=== PATIENT | female | born 1940 | race Caucasian/White ===

== ENCOUNTER 2023-02-14 18:08 | Emergency (ER) | payer MEDICARE, SELFPAY ==
[2023-02-14 18:36] VITALS: BP 127/87; PULSE 86; RESP 16; TEMP 36.6; O2SAT 98; BMI 33.0
--- NOTE | 2023-02-14 18:41 | XR_ITS ---
The [address] [address] Patient Name: MIGUEL A APARICIO MRN: [id number] date: 1940 Sex: F Assigned Patient Location: ER Current Patient Location: ER Accession/Order Number: [id number] Exam Date: 02/14/2023 18:48 Report Date: 02/14/2023 19:30 At the request of: LUKE BRIDGES Procedure: XR ribs LT min 3V w CXR1V EXAMINATION: XR ribs LT min 3V w CXR1V HISTORY: injury ; acute left rib pain after falling COMPARISON: No relevant comparison available. FINDINGS: LUNGS: Chronic interstitial changes within lung bases; no convincing infiltrates. PLEURA: No pneumothorax, effusion, or pleural thickening. MEDIASTINUM: No visible mass or adenopathy. CARDIAC: No cardiomegaly or cardiac silhouette abnormality. RIBS: No appreciable rib fracture. Degenerative changes of the glenohumeral joints bilaterally. OTHER: Negative. XR/XR ribs LT min 3V w CXR1V IMPRESSION: 1. No acute cardiopulmonary process. 2. No appreciable rib fracture. Electronically authenticated by: RYNE CARLTON Date: 02/14/2023 19:30
--- NOTE | 2023-02-14 20:20 | ED_ITS ---
Documented by User: Yanira Barnes 02/14/23 20:22 HPI - General Adult General Chief complaint: Fall Stated complaint: FALL RIB PAIN Time Seen by Provider: 02/14/23 20:10 Source: patient Mode of arrival: walk-in Limitations: no limitations History of Present Illness HPI narrative: 82-year-old female presents with chief complaint of left-sided chest wall pain. Patient tripped and twisted falling on her arm and left side earlier today. She is here for fear of a possible rib fracture. She states she has difficulty taking in a deep breath. She denies striking her head. No crepitus or bruising over the left lower chest wall. She does have pain to palpation to the area. She states it occurred earlier today. She's had increased pain throughout the day. Denies any head or neck pain Related Data Allergies Allergy/AdvReac Type Severity Reaction Status Date / Time cefpodoxime [From Vantin] Allergy Verified 02/14/23 18:35 Review of Systems ROS Narrative All Systems are negative except as noted/marked.All systems reviewed and otherwise negative [facility] Social History Smoking status: Never smoker Exam Narrative Exam Narrative: Nurses note and vital signs reviewed and patient is not hypoxic. General: The patient appears well and in no apparent distress. Patient is resting comfortably on cart. Skin: Warm, dry, no pallor noted. There is no rash noted. Head: Normocephalic, atraumatic Eye: Normal conjunctiva, no drainage, EOMI. PERRL Ears, Nose, Mouth, and Throat: oral mucosa is moist. Nares patent. Mouth without vesicles. Ear canals patent. Tm's without Erythema Musculoskeletal: Left-sided chest wall pain. Crepitus no bruising, The patient has no evidence of calf tenderness, no pitting edema, symmetrical pulses noted bilaterally Neurological: A&O x4, normal speech Psychiatric: Cooperative Constitutional Vital Signs, click to edit/add: Last Vital Signs Temp 97.9 F 02/14/23 18:36 Pulse 86 02/14/23 18:36 Resp 16 02/14/23 18:36 BP 127/87 02/14/23 18:36 Pulse Ox 98 02/14/23 18:36 O2 Del Method Room Air 02/14/23 18:36 Course Vital Signs Vital signs: Vital Signs Temperature 97.9 F 02/14/23 18:36 Pulse Rate 86 02/14/23 18:36 Respiratory Rate 16 02/14/23 18:36 Blood Pressure 127/87 02/14/23 18:36 Pulse Oximetry 98 02/14/23 18:36 Oxygen Delivery Method Room Air 02/14/23 18:36 Temperature 97.9 F 02/14/23 18:36 Pulse Rate 86 02/14/23 18:36 Respiratory Rate 16 02/14/23 18:36 Blood Pressure 127/87 02/14/23 18:36 Pulse Oximetry 98 02/14/23 18:36 Oxygen Delivery Method Room Air 02/14/23 18:36 Medical Decision Making MDM Narrative Medical decision making narrative: She presented here with a injury from a fall left side. X-ray shows no acute deformities. Patient denied the need for pain medicine she was given a muscle relaxant. She'll be discharged home with prescription muscle relaxant follow-up primary care physician. Medical Records Medical records reviewed: Yes I reviewed the patient's medical records Discharge Plan Discharge Chief Complaint: Fall Clinical Impression: Rib pain on left side Patient Disposition: Home, Self-Care Time of Disposition Decision: 20:17 Condition: Good Instructions: Rib Contusion (ED) Stand Alone Forms: Portal Instructions Referrals: AYANNA VICENTE [Primary Care Provider] - 1 week Documented by User: Stanford Gill MD 02/14/23 20:28 HPI - General Adult General Chief complaint: Fall Stated complaint: FALL RIB PAIN Time Seen by Provider: 02/14/23 20:10 Related Data Allergies Allergy/AdvReac Type Severity Reaction Status Date / Time cefpodoxime [From Vantin] Allergy Verified 02/14/23 18:35 PFSH PFSH Social History Smoking status: Never smoker Exam Constitutional Vital Signs, click to edit/add: Last Vital Signs Temp 97.9 F 02/14/23 18:36 Pulse 86 02/14/23 18:36 Resp 16 02/14/23 18:36 BP 127/87 02/14/23 18:36 Pulse Ox 98 02/14/23 18:36 O2 Del Method Room Air 02/14/23 18:36 Course Vital Signs Vital signs: Vital Signs Temperature 97.9 F 02/14/23 18:36 Pulse Rate 86 02/14/23 18:36 Respiratory Rate 16 02/14/23 18:36 Blood Pressure 127/87 02/14/23 18:36 Pulse Oximetry 98 02/14/23 18:36 Oxygen Delivery Method Room Air 02/14/23 18:36 Temperature 97.9 F 02/14/23 18:36 Pulse Rate 86 02/14/23 18:36 Respiratory Rate 16 02/14/23 18:36 Blood Pressure 127/87 02/14/23 18:36 Pulse Oximetry 98 02/14/23 18:36 Oxygen Delivery Method Room Air 02/14/23 18:36 Medical Decision Making MDM Narrative Medical decision making narrative: She presented here with a injury from a fall left side. X-ray shows no acute deformities. Patient denied the need for pain medicine she was given a muscle relaxant. She'll be discharged home with prescription muscle relaxant follow-up primary care physician. Patient was seen and evaluated by Yanira Barnes and Dr. Gandhi. Dr. Gill did not see or evaluate this patient. Discharge Plan Discharge Chief Complaint: Fall Clinical Impression: Rib pain on left side Patient Disposition: Home, Self-Care Time of Disposition Decision: 20:17 Condition: Good Instructions: Rib Contusion (ED) Stand Alone Forms: Portal Instructions Referrals: AYANNA VICENTE [Primary Care Provider] - 1 week
[2023-02-14] MEDS: METHOCARBAMOL 500 MG TABLET PO (20:37)
[2023-02-14 20:39] VITALS: BP 111/68; PULSE 81; RESP 12; TEMP 36.9; O2SAT 95
== END 2023-02-14 20:41 | disposition home or self-care (01) ==
PROVIDERS: Emergency Provider Emergency Medicine; PCP Family Medicine
DX: R07.81 Pleurodynia (principal); Z91.81 History of falling
CPT/HCPCS: 71101; 99283

== ENCOUNTER 2023-08-25 12:32 | Outpatient (OUT) | payer MEDICARE, SELFPAY ==
--- NOTE | 2023-08-25 14:35 | PM.CN ---
Consult Note: HPI Data of Consult Patient: new to practice Consult date: 08/25/23 Requesting Physician: Som Azul MD Primary Care Provider: AYANNA VICENTE Consult Narrative Reason for consult: low back, right hip, right leg pain Narrative: 83yof who presents for evaluation. worsening low back, right leg pain. xr show multilevel degeneration. fused from l4-l5. has continued in provider directed home exercise program >6 weeks, with minimal benefit. uses robaxin, otc pain meds. denies adverse med side effects. cc:: CC: Som Azul MD Review of Systems ROS Status of ROS 10 or more systems reviewed and unremarkable except as noted in history and below PFSH PFSH Social History Smoking status: Never smoker Meds Home Medications and Allergies Home Medications Medication Instructions Recorded Confirmed Type methocarbamol 500 mg tablet 500 mg PO TID pain 02/14/23 02/14/23 History Allergies Allergy/AdvReac Type Severity Reaction Status Date / Time cefpodoxime [From Vantin] Allergy Verified 02/14/23 18:35 Exam Narrative Exam Narrative: Psych-alert and oriented x 3. Attentive and appropriate, constitutionally normal, displays normal mood and affect per situation. There are no obvious deficits in memory, reasoning, or intellect.? Skin-no obvious rashes, bruising, erythema noted to the patient's area of pain.? Extremities- extremities are warm with minimal edema and palpable pulses. Lumbar-tenderness to palpation noted in the lumbar spine and paraspinal musculature. Pain is elicited with flexion, extension, and lateral rotation of the lumbar spine. Range of motion is diminished with these motions. Facet loading maneuvers are positive. Strength-noted to be unremarkable with the exception of decreased strength rated at 4 out of 5 in right quadriceps femoris, anterior tibialis. Sensory-no notable sensory deficits in the bilateral lower extremities to touch or pinprick in all dermatomal distributions with the exception to decreased sensation to the right L4, 5 dermatomal distribution Sacroiliac - tender to palpation over right PSIS. Positive Buster's on right side. Positive thigh thrust on right side. Coordination remains intact.? Gait remains non-antalgic. 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 failed conservatve measures, as noted. imaging reviewed, as noted. given symptoms and exam, prudent to attempt right sij injection under fluoroscopic guidance. she is in agreement. given radiating component down right leg, prudent to obtain lumbar mri without contrast. she is in agreement. also discussed possibility of bilateral genicular nerve blocks in future. meds reviewed, no changes. follow up after procedure and imaging.
== END 2023-08-25 12:33 | disposition home or self-care (01) ==
LOC: PM 12:32
PROVIDERS: PCP Family Medicine; Visit Provider Anesthesiology
DX: M48.062 Spinal stenosis, lumbar region with neurogenic claudication (principal); M96.1 Postlaminectomy syndrome, not elsewhere classified; M53.3 Sacrococcygeal disorders, not elsewhere classified
CPT/HCPCS: G0463

== ENCOUNTER 2023-08-26 10:07 | Outpatient (RCR) | payer MEDICARE, SELFPAY | END 2023-10-04 15:31 | disposition home or self-care (01) | LOC: PT 10:07 | PROVIDERS: PCP Family Medicine; Visit Provider Nurse Practitioner Family | DX: M54.50 Low back pain, unspecified (principal); M25.551 Pain in right hip | CPT/HCPCS: 20561; 97035; 97110; 97113; 97140; 97161 ==

== ENCOUNTER 2023-09-01 08:46 | Day surgery (SDC) | payer MEDICARE, SELFPAY ==
--- OUTSIDE RECORDS SUMMARY | 2023-09-01 09:00 | XMS_ITS | CCD ---
Author Name Unknown Address [address] [place] [address] Organization [facility] Care Team Providers [employer] Material Name Role Phone Ayanna Vicente Primary Care Provider Ayanna Vicente Unavailable Ayanna Vicente Unavailable Ayanna Vicente Unavailable Ayanna Milner Unavailable DO Ayanna Vicente Primary Care Provider MD James Redding Emergency Provider MD Bertram Garrison Admit Provider MD Bertram Garrison Attending Provider [phone] MD Galo Max Admit Provider MD Galo Max Attending Provider ALLYSSA Penn Other Provider Unavailable ALLYSSA Orourke Other Provider Unavailable ALLYSSA Camejo Other Provider Unavailable ALLYSSA Das Other Provider Unavailable ALLYSSA Acosta Other Provider Unavailable ALLYSSA Wall Other Provider Unavailable MD Yuliana Hale Other Provider MD Herman Kevin Other Provider NATALI Powell Other Provider DO Madeline Juarez Other Provider MD Marcio Hernandez Other Provider DO Loco Velasquez Other Provider MD Elgin Irby Other Provider MD Adali Salamanca Other Provider Beulah, ANP-BC Valarie Other Provider MD Max Paulino Other Provider [phone] MD Faisal Abel Other Provider MD Bertram Garrison Other Provider MD Bobby Guevara Other Provider MD Pietro Chaparro Other Provider MD Bin Rock Other Provider MD Michael Burnett Other Provider BERTA Najera-Aquiles Mane Other Provider [phone] MD Salas Winslow Other Provider MD Joss Stoner Other Provider MD Terrie Hua Other Provider MD Chase Glover Other Provider DO Meron Estrada Other Provider Al MD Hasmukh Beck Other Provider DO Felipe Howard Other Provider NATALI Montanez Other Provider DO Santiago Fontaine Other Provider MD Tyson De Los Santos Other Provider Claudia, RN Kathy Other Provider Unavailable MD Pietro Corral Other Provider MD Penny Mike Other Provider PABLO Quarles Other Provider DO Gume Macedo Other Provider MD Bertrand Akins II Other Provider DO Ayanna Vicente Attending Provider Ayanna Vicente DO Primary Care Provider Ayanna Vicente DO Unavailable Ayanna Vicente DO Unavailable [phone] DO Ayanna Vicente Primary Care Provider Ayanna Vicente DO Primary Care Provider Ayanna Vicente DO Unavailable Ayanna Vicente DO Unavailable DO Ayanna Vicente Primary Care Provider Sakina, DO Izaguirre Attending Provider [phone] MD Francine Lares Attending Provider Ayanna Vicente Primary Care Unavailable PABLO Sheth Attending Provider [phone] DO Ayanna Vicente Primary Care Provider DO Ayanna Vicente Attending Provider [phone] MD Francine Lares Attending Provider PABLO Sheth Attending Provider DR AYANNA VICENTE Primary Care Unavailable VERNONMIPATHJoslyn ., NARENDRANATH Attending Abigail vailable MARLEN ., NARENDRANATH Admitting Abigail vailable Ayanna Vicente Primary Care Physician SUSAN RANDOLPH Attending Unavailable SUSAN RANDOLPH Attending Unavailable DO Ayanna Vicente Primary Care Provider DO Ayanna Vicente Attending Provider [phone] Francine Lares Admitting Unavailable Ayanna Vicente Primary Care Unavailable Francine Lares Attending Unavailable Sharda Sheth Attending Unavailable Sakina, Ayanna Primary Care Unavailable Sharda Sheth Admitting Unavailable Sakina, Ayanna Primary Care Unavailable Ayanna Vicente Attending Unavailable Sakina, Ayanna Admitting Unavailable Sakina, Ayanna Primary Care Unavailable Sakina, Ayanna Attending Unavailable Sakina, Ayanna Admitting Unavailable Sakina, Ayanna Primary Care Unavailable Ayanna Vicente Attending Unavailable Sakina, Ayanna Admitting Unavailable Sakina, Ayanna Primary Care Unavailable Ayanna Vicente Attending Unavailable Sakina, Ayanna Admitting Unavailable Sakina, Ayanna Primary Care Unavailable Francine Lares Admitting Unavailable Ratnau, Francine Attending Unavailable Sharda Sheth Attending Unavailable Ayanna Vicente Primary Care Unavailable Sharda Sheth Admitting Unavailable Junior Butterfield Unavailable RATNAU, FRANCINE Referring Unavailable OMER, FRANCINE Attending Unavailable AYANNA VICENTE Primary Care Unavailable JANETLOU, FRANCINE Referring Unavailable AYANNA VICENTE Primary Care Unavailable JEFELEAH, FRANCINE Referring Unavailable OMER, FRANCINE Attending Unavailable AYANNA VICENTE Primary Care Unavailable OMER, FRANCINE Referring Unavailable AYANNA VICENTE Primary Care Unavailable Homa Mckeon Unavailable Ayanna Vicente MD Primary Care Provider [phone] JAMES SMITH Attending Unavailable Latha ROMEO, Som Bryson Attending Unavailable Allergies Allergy Classification Reported Allergen(s) Allergy Type Date of Onset Reaction(s) Facility Cephalosporins (antibiotic) (1 source) Cephalosporins (Antibiotic) Drug Allergy 02-20-20 04 Hives, Swelling [facility] (20 sources) cefpodoxime; Translations: [Vantin] Drug Allergy 12-24-19 16 Eye swelling (finding) [facility] (20 sources) cepahlosporins Propensity to adverse reactions Unknown [facility] Other (20 sources) Cephalosporins (Antibiotic); Translations: [Cephalosporins] Allergy to substance 02-20-20 04 Hives, Swelling, Swelling (morphologic abnormality), Eye swelling (finding), Unknown [facility] (9 sources) cefpodoxime; Translations: [CEFPODOXIME] Drug Allergy 02-17-20 19 Unknown, Other [facility] (1 source) Amoxicillin Drug Allergy 12-24-19 16 [facility] (15 sources) Medicinal cephalosporin and acting as antibacterial agent (FN) Drug allergy Unknown [facility] Other (2 sources) Bacitracin / Neomycin / Polymyxin B Drug Allergy Unknown [facility] Other Medications Current Medications Medication Drug Class(es) Dates Sig (Normalized) Sig (Original) acetaminophen 325 mg / oxyCODONE hydrochloride 5 mg oral tablet (20 sources) Opioid Agonist Start: 07-16-2023 oxyCODONE-Acetamin ophen 5-325 MG 1 tablet Orally one to two times a day as needed for 30 days Jul, Active Start: 04-15-2023 oxyCODONE-Acet aminophen 5-325 MG 1 tablet Orally one to two times a day as needed for 30 days Apr, Active Start: 01-24-2022 take 1 tablet by jeniffer th every six hours Oxycodone-Acetaminophen Active 1 TAB PO Q6H 7 January 24, 2022 Start: 01-14-2022 End: 01-24-2022 take 1 tablet by mouth once daily Oxycodone-Acetaminophen Discontinued 1 T AB PO Daily January 14, 2022 12:00am January 24, 2022 3:09pm Start: 10-26-2020 take 1 tablet by jeniffer th every six hours acetaminophen-oxycodone 325 mg-5 mg oral tablet tab(s), Oral, q6hr, Refill(s) 0 Start Date: 10/26/20 Status: Ordered Start: 03-26-2017 End: 04-02-2017 take 1 tablet by mouth every six hours Oxycodone-Acetaminophen Discontinued 1 T AB PO Q6H 40 March 26, 2017 12:00am April 02, 2017 9:59am Start: 03-13-2017 End: 04-02-2017 take 1 tablet by mouth every four to six hours Oxycodone-Acetaminophen Discontinued 1 T AB PO EVERY 4-6 HOURS March 13, 2017 12:00am April 02, 2017 9:59am Start: 07-19-2011 OXYCODONE-ACET AMINOPHEN 5-325 mg ORAL tablet as needed. 0 07/19/2011 Active Comment on above: as needed. ascorbic acid 500 mg oral tablet (20 sources) Vitamin C take 1 tablet by mouth every twenty-four hours Vitamin C 500 MG 1 tablet Orally Once a day Active aspirin 81 mg chewable tablet (20 sources) Platelet Aggregation Inhibitor, Nonsteroidal Anti-inflammatory Drug Start: 10-26-2020 take 1 mg by mouth once daily aspirin 81 mg Oral EC Tab mg tab(s), Oral, Daily, Refills(s) 0 Start Date: 10/26/20 Status: Ordered Start: 03-13-2017 End: 01-24-2022 take 81 mg by mouth once daily Aspirin Discontinued 81 MG PO Daily April 02, 2017 12:00am January 24, 2022 3:09pm Start: 02-20-2004 ASPIRIN 81MG T ABLET Indications: Other specified idiopathic peripheral neuropathy Take one (1) tablet daily . 0 02/20/2004 Active Aspirin 81 mg 1 tablet once a day Active Comment on above: Take one (1) tablet daily . calcium carbonate 1250 mg / cholecalciferol 200 unt oral tablet (11 sources) Vitamin D Start: 01-24-2022 take 1 tablet by mouth once daily in the morning OYSCO 500 + D 500-5 MG-MCG tablet Take 1 tablet by mouth in the morning. 0 01/24/2022 Active Start: 03-13-2017 End: 04-02-2017 take 1 tablet by mouth once daily Calcium Carbonate-Vitamin D3 (Calcium 600 + D(3)) 600 mg(1,500mg) -200 unit Tablet Discontinued 1 TAB PO daily March 13, 2017 12:00am April 02, 2017 9:58am Calcium Carbonate-Vitamin D3 (Oyster Shell Calcium-Vit D3) 500 mg-5 mcg (200 unit) Tablet (9 sources) Start: 01-24-2022 take 1 tablet by mouth once daily in the morning Calcium Carbonate-Vitamin D3 (Oyster Shell Calcium-Vit D3) 500 mg-5 mcg (200 unit) Tablet Active 1 TAB PO Every morning January 23, 2022 11:00pm Start: 01-24-2022 take 1 tablet by jeniffer th once daily in the morning Calcium Carbonate-Vitamin D3 (Oyster Shell Calcium-Vit D3) 500 mg-5 mcg (200 unit) Tablet Active 1 TAB PO Every morning January 24, 2022 12:00am Centrum Silver (20 sources) Centrum Silver A ctive cholecalciferol 0.125 mg ora l capsule (20 sources) Vitamin D Vitamin D3 125 M CG (5000 UT) as directed Orally Active Vitamin D3 125 M CG (5000 UT) as directed Orally Active ciprofloxacin 500 mg oral tablet (20 sources) Quinolone Antimicrobial Start: 05-20-2018 take 1 tablet by mouth every twelve hours Cipro 500 MG 1 tablet Orally bid for 10 day(s) May, Active Glucometer (20 sources) Start: 02-21-2020 Glucometer Feb, Active 3 ml insulin detemir 100 unt/ml pen injector (18 sources) Insulin Analog Start: 01-24-2022 Insulin Detemi r U-100 (Levemir Flextouch U-100 Insuln) 100 unit/mL (3 mL) Insulin Pen Active 25 UNITS SUBCUT Daily at bedtime 7.5 January 24, 2022 12:00am Start: 04-02-2017 End: 05-02-2017 Insulin Detemir U-100 (Levem ir Flextouch U100 Insulin) 100 unit/mL (3 mL) Insulin Pen Discontinued 20 UNIT SUBCUT Daily at bedtime 6 April 02, 2017 12:00am May 02, 2017 12:03am 3 ml insulin glargine 100 unt/ml pen injector (20 sources) Insulin Analog Start: 10-02-2022 Lantus SoloSta r 100 UNIT/ML pen INJECT 46 UNITS SUBCUTANEOUSLY AT BEDTIME 0 10/02/2022 Active Start: 01-13-2022 End: 01-24-2022 inject 21 [IU] by subcutaneous injection once daily at bedtime Insulin Glargine Discontinued 21 UNIT SUBCUT Daily at bedtime January 12, 2022 11:00pm January 24, 2022 2:09pm Start: 01-13-2022 End: 01-24-2022 inject 21 [IU] by subcutaneous injection once daily at bedtime Insulin Glargine Discontinued 21 UNIT SUBCUT Daily at bedtime January 13, 2022 12:00am January 24, 2022 3:09pm Start: 11-28-2020 Toujeo SoloSta r 300 UNIT/ML as directed Subcutaneous November, Not-Taking Start: 10-26-2020 Lantus Solosta r Pen 100 units/mL subcutaneous solution SubCutaneous, Daily, Refills(s) 0 Start Date: 10/26/20 Status: Ordered Start: 03-13-2017 End: 04-02-2017 inject 10 [IU] by subcutaneous injection once daily at bedtime Insulin Glargine (Lantus Solostar U-100 Insulin) 100 unit/mL (3 mL) Insulin Pen Discontinued 10 UNIT SUBCUT Daily at bedtime March 13, 2017 12:00am April 02, 2017 9:58am insulin glargine (Lantus) 100 UNIT/ML injection Subcutaneous 0 Active Lantus SoloStar 100 UNIT/ML inject 46 units subcutaneously AT BEDTIME quantity sufficient for 90 days Active insulin glargine (LANTUS) 100 unit/mL injection Inject subcutaneously. 21 units 0 Active Lantus SoloStar 100 UNIT/ML inject 30 units subcutaneously AT BEDTIME Active Lantus SoloStar 100 UNIT/ML 30 units Subcutaneous qd hs Active Comment on above: Inject subcutaneousl y. 21 units ketoconazole 20 mg/ml topical cream (2 sources) Azole Antifungal ketoconazole (NIZOral) 2 % cream 1 application to affected area on the feet topically two times daily for 30 day(s) 0 Active levothyroxine sodium 0.075 mg oral tablet (20 sources) l-Thyroxine Start: 10-27-19 take 1 tablet by mouth once daily Synthroid 100 mcg Tab 100 mcg = 1 tab(s), Oral, Daily, Refills(s) 0 Start Date: 10/26/20 Status: Ordered Start: 03-13-2017 End: 01-24-2022 take 1 tablet by mouth once daily Levothyroxine (Synthroid) 75 mcg Tablet Discontinued 75 MCG PO Daily at 0730 April 02, 2017 12:00am January 24, 2022 3:09pm Start: 06-10-2011 LEVOTHYROXINE 88 mcg ORAL tablet take 1 tablet by jeniffer th once daily levothyroxine (Synthroid) 50 MCG tablet take 1 tablet by ORAL route every day Oral 0 Active take 1 tablet by jeniffer th once daily in the morning Levothyroxine Sodium 100 mcg TAKE 1 TABLET BY MOUTH EVERY MORNING ON AN EMPTY STOMACH Active loperamide hydrochloride 2 mg oral tablet (20 sources) Opioid Agonist Start: 09-13-2021 take 1 tablet by mouth once as needed Imodium A-D 2 MG 1 tablet as needed Orally PRN prn Sep, Active Start: 09-13-2021 take 1 tablet by jeniffer th every six hours Imodium A-D 2 MG 1 tablet as needed Orally Four times a day Sep, Active melatonin 5 mg oral tablet (20 sources) Start: 01-15-2022 End: 01-24-2022 take 10 mg by mouth once daily at bedtime Melatonin Active 10 MG PO Daily at bedtime 60 January 24, 2022 12:00am End: 07-28-2023 MELATONIN ORAL Take by mouth . 0 02/07/2023 Discontinued Melatonin 10 MG as directed Orally Active MELATONIN ORAL T joce by mouth. 0 Active Comment on above: Take by mouth. metFORMIN hydrochloride 500 mg oral tablet (20 sources) Biguanide Start: 12-19-2020 take 1 tablet by mouth twice daily at mealtime METFORMIN 1,000 mg ORAL tablet Take 1,000 mg by mouth twice daily with meals. 0 03/12/2021 Active Start: 04-02-2017 End: 01-24-2022 take 1000 mg by mouth twice daily at mealtime Metformin Active 1000 MG PO Twice daily with meals 120 January 24, 2022 12:00am Start: 05-09-2011 End: 04-02-2017 take 1000 mg by mouth twice daily Metformin Discontinued 1000 MG PO Twice daily March 13, 2017 12:00am April 02, 2017 9:58am Comment on above: Take 1,000 mg by jeniffer th twice daily with meals. 24 hr mirabegron 25 mg extended release oral tablet (14 sources) beta3-Adrenergic Agonist mirabegron ER (Myrbetriq) 25 MG 24 hr tablet 1 (one) time each day at the same time. 0 Active Multiple Vitamin (Tab-A-Sivan) tablet (2 sources) Start: 2 take 1 tablet by mouth in the morning Multiple Vitamin (Tab-A-Sivan) tablet Take 1 tablet by mouth in the morning. 0 01/24/2022 Active Multivitamin preparation (20 sources) Multivitamin Act balaji Multivitamin With Folic Acid (Thera) 400 mcg Tablet (18 sources) Start: 2 take 1 tablet by mouth once daily Multivitamin With Folic Acid (Thera) 400 mcg Tablet Active 1 TAB PO Daily January 23, 2022 11:00pm Start: 01-24-2022 take 1 tablet by jeniffer th once daily Multivitamin With Folic Acid (Thera) 400 mcg Tablet Active 1 TAB PO Daily January 24, 2022 12:00am Start: 04-02-2017 End: 01-24-2022 take 1 tablet by mouth once daily Multivitamin With Folic Acid (Thera) 400 mcg Tablet Discontinued 1 TAB PO Daily April 01, 2017 11:00pm January 24, 2022 2:09pm Start: 04-02-2017 End: 01-24-2022 take 1 tablet by mouth once daily Multivitamin With Folic Acid (Thera) 400 mcg Tablet Discontinued 1 TAB PO Daily April 02, 2017 12:00am January 24, 2022 3:09pm Multivitamins and Minerals (1 source) Start: 10-26-2020 Multivitamins and Minerals Refill(s) 0 Start Date: 10/26/20 Status: Ordered oxybutynin chloride 5 mg oral tablet (20 sources) Cholinergic Muscarinic Antagonist Start: 02-11-2023 take 1 tablet by mouth three times daily as needed oxybutynin 5 mg Tab See Instructions, can take 1 tab po up to TID PRN incontinence, # 90 tab(s), Refills(s) 3, Pharmacy: [id number], 178, cm, 02/11/23 11:43:00 EDT, Height/Length Dosing, 106.9, kg, 02/11/23 11:43:00 EDT, Weight Dosing Start Date: 02/11/23 Status: Ordered Start: 10-02-2021 take 1 tablet by jeniffer th every twenty-four hours Ditropan XL 10 MG 1 tablet Orally Once a day Sep, Not-Taking pregabalin 225 mg oral capsule (20 sources) Start: 06-09-2017 take 1 capsule by mouth in the morning pregabalin (Lyrica) 225 MG capsule Take 225 mg by mouth in the morning and 225 mg before bedtime. 0 10/17/2022 Active Start: 04-02-2017 End: 01-24-2022 take 3 capsules by mouth twice daily Pregabalin (Lyrica) 75 mg Capsule Discontinued 225 MG PO Twice daily April 02, 2017 12:00am January 24, 2022 3:09pm Start: 07-19-2011 End: 04-02-2017 take 1 capsule by mouth twice daily Pregabalin (Lyrica) 225 mg Capsule Discontinued 225 MG PO Twice daily March 13, 2017 12:00am April 02, 2017 9:59am Comment on above: Take 225 mg by mouth twice daily. 24 hr propranolol hydrochloride 60 mg extended release oral capsule (20 sources) beta-Adrenergic Jose Carlos Start: take 1 capsule by mouth every twenty-four hours in the morning propranolol LA (Inderal LA) 60 MG 24 hr capsule Take 60 mg by mouth in the morning. 0 07/12/2023 Active Start: 02-20-2004 End: 01-13-2022 take 1 capsule by mouth once daily Propranolol (Inderal La) 60 mg Capsule,Extended Release 24 Hr Discontinued 60 MG PO Daily with supper April 02, 2017 12:00am January 13, 2022 4:46pm Comment on above: Take one(1) tablet d aily. Triamterene-HCTZ 37.5 mg-25 mg (3 sources) take 0.5 tablet by mouth once daily Triamterene-HCTZ 37.5 mg-25 mg TAKE 1/2 (ONE-HALF) OF A TABLET BY MOUTH ONCE DAILY for 90 Active 24 hr venlafaxine 75 mg extended release oral capsule (20 sources) Serotonin and Norepinephrine Reuptake Inhibitor Start: 07-15-19 take 1 capsule by mouth once daily at mealtime venlafaxine XR (Effexor XR) 75 MG 24 hr capsule TAKE 1 CAPSULE BY MOUTH EVERY DAY WITH FOOD 0 07/15/2023 Active Start: 01-01-2022 End: 01-24-2022 take 1 capsule by mouth every twenty-four hours Effexor XR 75 MG 1 capsule with food Orally Once a day Dec, Active Comment on above: Take 75 mg by mouth once daily. Vitamin B Complex (20 sources) Vitamin B Comple x Not-Taking Vitamin B Comple x Active Vitamin B Complex oral capsule (1 source) Start: 10-26-2020 Vitamin B Comp stewart oral capsule Oral, Daily, Refill(s) 0 Start Date: 10/26/20 Status: Ordered zolpidem tartrate 5 mg oral tablet (20 sources) gamma-Aminobutyr ic Acid-ergic Agonist Start: 10-02-2022 take 1 tablet by mouth once daily at bedtime Ambien 5 MG 1 tablet Orally qd hs Sep, Active Start: 10-26-2020 take 1 tablet by jeniffer th once daily at bedtime as needed for sleep Ambien 10 mg Tab 10 mg = 1 tab(s), Oral, Once a day (at bedtime), PRN for sleep, Refills(s) 0 Start Date: 10/26/20 Status: Ordered Start: 04-24-2018 take 0.5 tablet by m outh once daily at bedtime as needed Ambien 10 mg 1/2 tablet at bedtime as needed Orally Once a day for 90 days Apr, Active Start: 03-13-2017 End: 04-04-2022 take 1 tablet by mouth once daily at bedtime Zolpidem (Ambien) 5 mg tablet Discontinued 5 MG PO Daily at bedtime January 13, 2022 4:48pm January 15, 2022 12:05pm Comment on above: Take 5 mg by mouth. Completed/Discontinued Medications Medication Drug Class(es) Dates Sig (Normalized) Sig (Original) acetaminophen 325 mg oral tablet (20 sources) Start: 01-15-2022 End: 01-24-2022 take 650 mg by mouth every six hours Acetaminophen Discontinued 650 MG PO Q6H January 15, 2022 12:00am January 24, 2022 3:09pm Start: 04-02-2017 End: 01-13-2022 take 325 mg by mouth every four hours Acetaminophen Discontinued 325 MG PO Q4H April 02, 2017 12:00am January 13, 2022 4:42pm Start: 04-02-2017 End: 01-13-2022 take 650 mg by mouth every four hours Acetaminophen Discontinued 650 MG PO Q4H April 02, 2017 12:00am January 13, 2022 4:42pm acetaminophen 325 mg / HYDROcodone bitartrate 5 mg oral tablet (18 sources) Opioid Agonist Start: 04-02-2017 End: 01-14-2022 take 2 tablets by mouth every four hours Hydrocodone-Acetaminophen Discontinued 2 TAB PO Q4H April 02, 2017 12:00am January 14, 2022 11:19am atorvastatin 20 mg oral tablet (20 sources) HMG-CoA Reductase Inhibitor Start: 02-20-2004 End: 01-24-2022 take 1 tablet by mouth once daily in the evening Atorvastatin (Lipitor) 20 mg tablet Discontinued 20 MG PO Every evening January 13, 2022 4:48pm January 24, 2022 3:09pm Start: 02-20-2004 LIPITOR 10MG T ABLET Indications: Other specified idiopathic peripheral neuropathy Take 20 mg by mouth. 0 02/20/2004 Active Start: 02-20-2004 LIPITOR 10MG T ABLET Indications: Other specified idiopathic peripheral neuropathy Take one(1) tablet daily. 0 02/20/2004 Active Comment on above: Take one(1) tablet d aily. Take 20 mg by mouth. Calcium Carbonate-Vitamin D3 (Oyster Shell Calcium-Vit D3) 500 mg(1,250mg) -200 unit Tablet (9 sources) Start: 04-02-2017 End: 01-24-2022 take 1 tablet by mouth once daily in the morning Calcium Carbonate-Vitamin D3 (Oyster Shell Calcium-Vit D3) 500 mg(1,250mg) -200 unit Tablet Discontinued 1 TAB PO Every morning April 01, 2017 11:00pm January 24, 2022 2:09pm Start: 04-02-2017 End: 01-24-2022 take 1 tablet by mouth once daily in the morning Calcium Carbonate-Vitamin D3 (Oyster Shell Calcium-Vit D3) 500 mg(1,250mg) -200 unit Tablet Discontinued 1 TAB PO Every morning April 02, 2017 12:00am January 24, 2022 3:09pm CENTRUM SILVER TABLET (7 sources) Start: 02-20-2004 CENTRUM SILVER TABLET Indications: Other specified idiopathic peripheral neuropathy Take one(1) tablet daily. 0 02/20/2004 Active Comment on above: Take one(1) tablet d aily. citalopram 40 mg oral tablet (20 sources) Serotonin Reuptake Inhibitor Start: 03-13-2017 End: 01-13-2022 take 40 mg by mouth once daily in the morning Citalopram Discontinued 40 MG PO Every morning April 02, 2017 12:00am January 13, 2022 4:43pm Start: 02-20-2004 End: 04-04-2022 CELEXA 20MG TABLET Indicatio ns: Other specified idiopathic peripheral neuropathy Take one(1) tablet daily. 0 02/20/2004 04/04/2022 Discontinued (Discontinued by another Health Care Provider) Comment on above: Take one(1) tablet d aily. cyclobenzaprine hydrochloride 5 mg oral tablet (9 sources) Muscle Relaxant Start: End: take 5 mg by mouth every eight hours Cyclobenzaprine Discontinued 5 MG PO Q8H 60 April 02, 2017 12:00am January 13, 2022 4:43pm dicyclomine hydrochloride 20 mg oral tablet (20 sources) Anticholinergic Start: take 1 tablet by mouth twice daily as needed Dicyclomine HCl 20 MG 1 tablet Orally TWICE A DAY NEEDED Dec, Not-Taking docusate sodium 100 mg oral capsule (19 sources) Start: End: take 100 mg by mouth twice daily Docusate Sodium Discontinued 100 MG PO Twice daily 60 April 02, 2017 12:00am January 13, 2022 4:43pm docusate sodium 50 mg / sennosides, residential 8.6 mg oral tablet (9 sources) Start: End: take 1 tablet by mouth twice daily Sennosides-Docusate Sodium (Dok Plus) 8.6-50 mg Tablet Discontinued 1 TAB PO Twice daily 40 March 26, 2017 12:00am April 02, 2017 9:59am ezetimibe 10 mg oral tablet (20 sources) Dietary Cholesterol Absorption Inhibitor Start: End: take 1 tablet by mouth at bedtime Ezetimibe (Zetia) 10 mg Tablet Discontinued 10 MG PO Bedtime April 02, 2017 12:00am January 24, 2022 3:09pm Comment on above: Take one(1) tablet d aily. 72 hr fentaNYL 0.025 mg/hr transdermal system (9 sources) Opioid Agonist Start: End: Fentanyl Discontinued 25 MCG TRANSDERML Every 72 hours 5 March 26, 2017 12:00am April 02, 2017 9:58am ferrous sulfate 324 mg delayed release oral tablet (18 sources) Start: End: take 324 mg by mouth twice daily Ferrous Sulfate Discontinued 324 MG PO Twice daily April 02, 2017 12:00am January 13, 2022 4:44pm furosemide 20 mg oral tablet (20 sources) Loop Diuretic Start: End: take 10 mg by mouth once daily Furosemide Discontinued 10 MG PO Daily at 0800 January 13, 2022 4:48pm January 15, 2022 12:05pm Start: 02-20-2004 End: 01-13-2022 take 20 mg by mouth once daily Furosemide Discontinued 20 MG PO Daily at 0800 April 02, 2017 12:00am January 13, 2022 4:48pm Comment on above: Take one(1) tablet d aily. hydroCHLOROthiazide 25 mg / triamterene 37.5 mg oral tablet (20 sources) Potassium-sparin g Diuretic, Thiazide Diuretic Start: 03-13-20 End: 01-25-20 take 0.5 tablet by mouth once daily in the morning Triamterene-Hydroch lorothiazid (Maxzide-25mg) 37.5-25 mg tablet Discontinued 0.5 TAB PO Every morning January 13, 2022 4:48pm January 24, 2022 3:09pm triamterene-hydr ochlorothiazide (Maxzide) 75-50 MG tablet 1 (one) time each day at the same time. 0 Active hydroxychloroquine sulfate 200 mg oral tablet (20 sources) Antimalarial, Antirheumatic Agent Start: 01-09-2022 take 2 tablets by mouth once daily hydrOXYchloroQUINE (PLAQUENIL) 200 mg tablet Take 400 mg by mouth once daily. 0 01/09/2022 Active Start: 12-19-2020 take 400 mg by mouth once daily Plaquenil 400 mg, Oral, Daily, Refills(s) 0 Start Date: 12/19/20 Status: Ordered Start: 03-13-2017 End: 01-13-2022 take 200 mg by mouth once daily Hydroxychloroquine Discontinued 200 MG PO Daily April 02, 2017 12:00am January 13, 2022 4:45pm take 1 tablet by jeniffer th twice daily hydroxychloroquine (Plaquenil) 200 MG tablet take 1 tablet (200MG) by ORAL route 2 times every day Oral 0 Active Plaquenil 200 mg 1 tablet twice a day Active Comment on above: Take 400 mg by mouth once daily. Insulin Aspart U-100 (Novolog Flexpen U-100 Insulin) 100 unit/mL (3 mL) Insulin Pen (9 sources) Start: 01-15-2022 End: 01-15-2022 Insulin Aspart U-100 (Novolog Flexpen U-100 Insulin) 100 unit/mL (3 mL) Insulin Pen Discontinued 0 UNITS SUBCUT 3X/Day with meals and bedtime 0 January 14, 2022 11:00pm January 15, 2022 4:37pm Start: 01-15-2022 End: 01-15-2022 Insulin Aspart U-100 (Novolo g Flexpen U-100 Insulin) 100 unit/mL (3 mL) Insulin Pen Discontinued 0 UNITS SUBCUT 3X/Day with meals and bedtime 0 January 15, 2022 12:00am January 15, 2022 5:37pm Insulin Aspart U-100 (Novolo g Flexpen U-100 Insulin) 100 unit/mL (3 mL) insulin pen (9 sources) Start: 01-15-2022 End: 01-24-2022 Insulin Aspart U-100 (Novolo g Flexpen U-100 Insulin) 100 unit/mL (3 mL) insulin pen Discontinued 0 UNITS SUBCUT 3X/Day with meals and bedtime January 15, 2022 4:37pm January 24, 2022 2:09pm Start: 01-15-2022 End: 01-24-2022 Insulin Aspart U-100 (Novolo g Flexpen U-100 Insulin) 100 unit/mL (3 mL) insulin pen Discontinued 0 UNITS SUBCUT 3X/Day with meals and bedtime January 15, 2022 5:37pm January 24, 2022 3:09pm levoFLOXacin 750 mg oral tablet (9 sources) Quinolone Antimicrobial Start: 01-15-2022 End: 01-24-2022 take 750 mg by mouth once daily Levofloxacin Discontinued 750 MG PO Daily 1 January 15, 2022 12:00am January 24, 2022 3:09pm next dose 7/7 lidocaine 0.05 mg/mg medicated patch (9 sources) Antiarrhythmic, Amide Local Anesthetic Start: 04-02-2017 End: 01-13-2022 Lidocaine Discontinued 2 EACH TOPICAL Daily April 02, 2017 12:00am January 13, 2022 4:45pm lisinopril 10 mg oral tablet (20 sources) Angiotensin Converting Enzyme Inhibitor Start: 05-09-2011 End: 01-24-2022 take 10 mg by mouth once daily Lisinopril Discontinued 10 MG PO Daily April 02, 2017 12:00am January 24, 2022 3:09pm Start: 02-20-2004 take 10 mg by mouth once daily ZESTRIL 20MG TABLET Indications: Other specified idiopathic peripheral neuropathy Take 10 mg by mouth once daily. 0 02/20/2004 Active Start: 02-20-2004 End: 04-18-2022 lisinopril (ZESTRIL, PRINIVI L) 20 mg tablet Comment on above: Take one(1) tablet d aily. Take 10 mg by mouth once daily. Multivitamin (Multiple Vitamins) Tablet (9 sources) Start: 03-13-2017 End: 04-02-2017 take 1 tablet by mouth once daily Multivitamin (Multiple Vitamins) Tablet Discontinued 1 TAB PO Daily March 12, 2017 11:00pm April 02, 2017 8:59am Start: 03-13-2017 End: 04-02-2017 take 1 tablet by mouth once daily Multivitamin (Multiple Vitamins) Tablet Discontinued 1 TAB PO Daily March 13, 2017 12:00am April 02, 2017 9:59am Sennosides (Senna Lax) 8.6 m g Tablet (9 sources) Start: 04-02-2017 End: 01-13-2022 Sennosides (Senna Lax) 8.6 m g Tablet Discontinued 2 EACH PO DAILY@07 12April 01, 2017 11:00pm January 13, 2022 3:47pm Start: 04-02-2017 End: 01-13-2022 Sennosides (Senna Lax) 8.6 m g Tablet Discontinued 2 EACH PO DAILY@07 12April 02, 2017 12:00am January 13, 2022 4:47pm sulfamethoxazole 800 mg / trimethoprim 160 mg oral tablet (18 sources) Dihydrofolate Reductase Inhibitor Antibacterial, Sulfonamide Antimicrobial Start: 03-26-2017 End: 01-13-2022 take 1 tablet by mouth twice daily Sulfamethoxazole-Trimethoprim Discontinued 1 TAB PO Twice daily April 02, 2017 12:00am January 13, 2022 4:47pm traMADol hydrochloride 50 mg oral tablet (9 sources) Opioid Agonist Start: 01-15-2022 End: 01-15-2022 take 50 mg by mouth every eight hours Tramadol Discontinued 50 MG PO Q8H 0 January 15, 2022 12:00am January 15, 2022 5:36pm triamcinolone acetonide 40 mg/ml injectable suspension (20 sources) Corticosteroid Start: 11-01-2022 Kenalog-40 Oct, 20 m g Start: 04-22-2018 Kenalog -40 mg Apr, 40 mg TRIAMTERENE-HCTZ 37.5-25 TB (2 sources) Start: 02-20-2004 End: 04-04-2022 TRIAMTERENE-HCTZ 37.5-25 TB Indications: Other specified idiopathic peripheral neuropathy Take one(1) tablet daily. 0 02/20/2004 04/04/2022 Discontinued (Discontinued by another Health Care Provider) Start: 02-20-2004 [facility]25 TB Indications: Other specified idiopathic peripheral neuropathy Take one(1) tablet daily. 0 02/20/2004 Active Comment on above: Take one(1) tablet d aily. Problems Active Problems Problem Classification Problem Date Documented Da te Episodic/Chronic Acquired foot deformities (20 sources) Acquired hammer toe of right foot; Translations: [Other hammer toe(s) (acquired), right foot] Onset: 12-27-2021 Resolved: 12-27-2021 Chronic Acquired foot deformities (20 sources) Acquired hammer toe of left foot; Translations: [Other hammer toe(s) (acquired), left foot] Onset: 12-27-2021 Resolved: 12-27-2021 Chronic Acute and unspecified renal failure (10 sources) Injury of kidney; Translations: [Acute kidney failure, unspecified] 01-13-2022 Episodic Administrative/social admission (11 sources) Other reduced mobility; Translations: [Impaired mobility and activities of daily living] 01-16-2022 Episodic Deficiency and other anemia (9 sources) Anemia; Translations: [Anemia, unspecified] 03-27-2017 Episodic Diabetes mellitus with complications (20 sources) Type II diabetes mellitus uncontrolled; Translations: [Type 2 diabetes mellitus with hyperglycemia] Onset: 07-14-2009 Resolved: 03-19-2022 Chronic Diabetes mellitus without complication (13 sources) Diabetes mellitus; Translations: [Type 2 diabetes mellitus without complications] 03-27-2017 Chronic Diseases of white blood cells (20 sources) Lymphocytosis; Translations: [Lymphocytosis (symptomatic)] Onset: 04-04-2021 Resolved: 04-04-2021 Chronic Disorders of lipid metabolism (20 sources) Hyperlipidemia; Translations: [Hyperlipidemia, unspecified] Onset: 04-04-2021 Resolved: 10-02-2021 Chronic Diverticulosis and diverticulitis (20 sources) Diverticulitis; Translations: [Diverticulitis of intestine, part unspecified, without perforation or abscess without bleeding] Onset: 04-04-2021 Resolved: 09-13-2021 Chronic E Codes: Fall (13 sources) Fall; Translations: [Unspecified fall, initial encounter] 01-14-2022 Episodic Essential hypertension (20 sources) Hypertensive disorder; Translations: [Essential (primary) hypertension] Onset: 07-14-2009 Resolved: 03-19-2022 Chronic Fracture of upper limb (14 sources) Fracture of unspecified carpal bone, right wrist, initial encounter for closed fracture; Translations: [Fracture at wrist and/or hand level] Onset: 02-06-2022 Resolved: 02-06-2022 Episodic Genitourinary symptoms and ill-defined conditions (7 sources) Mixed incontinence; Translations: [Genuine stress incontinence] Onset: 12-06-2022 Chronic Genitourinary symptoms and ill-defined conditions (2 sources) Increased frequency of urination; Translations: [Poor stream of urine] 07-31-2021 Episodic Headache; including migraine (20 sources) Migraine; Translations: [Migraine, unspecified, not intractable, without status migrainosus] Chronic Headache; including migraine (1 source) Headache 12-19-2020 Episodic Immunizations and screening for infectious disease (3 sources) Encounter for immunization; Translations: [Flu vaccine need Z23] Onset: 04-04-2021 Resolved: 04-04-2021 Episodic Leukemias (20 sources) Chronic lymphoid leukemia, disease; Translations: [Chronic lymphocytic leukemia of B-cell type not having achieved remission] Chronic Lymphadenitis (1 source) Axillary lymphadenopathy; Translations: [Localized enlarged lymph nodes] Episodic Menopausal disorders (2 sources) Atrophy of vagina; Translations: [Postmenopausal atrophic vaginitis] Onset: 12-06-2022 12-06-2022 Chronic Mood disorders (20 sources) Major depressive disorder, single episode, unspecified; Translations: [Depression] Onset: 04-04-2021 Resolved: 02-06-2022 Chronic Mycoses (3 sources) Onychomycosis; Translations: [Tinea unguium] Onset: 12-08-2022 12-08-2022 Episodic Nutritional deficiencies (9 sources) Vitamin D deficiency; Translations: [Vitamin D deficiency, unspecified] 03-27-2017 Chronic Osteoarthritis (3 sources) Arthritis; Translations: [Osteoarthritis of right hip joint] 12-19-2020 Chronic Other acquired deformities (20 sources) Deformity of foot; Translations: [Unspecified acquired deformity of unspecified lower leg] Episodic Other aftercare (3 sources) Other halfway (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 therapy Onset: 02-06-2022 Resolved: 02-06-2022 Episodic Other and unspecified benign neoplasm (20 sources) History of polyp of colon; Translations: [Personal history of colonic polyps] Episodic Other and unspecified benign neoplasm (1 source) Benign lipomatous neoplasm, unspecified Episodic Other circulatory disease (9 sources) Low blood pressure; Translations: [Hypotension, unspecified] 01-13-2022 Episodic Other circulatory disease (1 source) Hypotension, unspecified; Translations: [Hypotension, unspecified] 01-15-2022 Episodic Other connective tissue disease (2 sources) Artificial knee joint present; Translations: [Presence of unspecified artificial knee joint] Onset: 12-06-2022 12-06-2022 Chronic Other connective tissue disease (20 sources) Fibromyalgia; Translations: [Fibromyalgia] 12-19-2020 Episodic Other connective tissue disease (5 sources) Rheumatism, unspecified; Translations: [Rheumatism, unspecified M79.0] Onset: 04-04-2021 Resolved: 10-02-2021 Episodic Other connective tissue disease (1 source) Rheumatism 10-26-2020 Episodic Other connective tissue disease (1 source) Pain in both feet; Translations: [Pain in right foot] 08-28-2023 Episodic Other diseases of bladder and urethra (20 sources) Bladder irritability; Translations: [Other specified disorders of bladder] 10-26-2020 Chronic Other diseases of bladder and urethra (20 sources) Spasm of bladder; Translations: [Other specified disorders of bladder] Chronic Other diseases of bladder and urethra (2 sources) Other specified disorders of bladder; Translations: [Bladder instability N32.89] Onset: 04-04-2021 Resolved: 10-02-2021 Chronic Other diseases of bladder and urethra (1 source) Detrusor overactivity; Translations: [Overactive bladder] Onset: 02-11-2023 Chronic Other diseases of bladder and urethra (3 sources) Overactive bladder; Translations: [Overactive bladder] Onset: 12-06-2022 07-31-2021 Chronic Other ear and sense organ disorders (1 source) Otalgia, right ear; Translations: [Otalgia, unspecified] Episodic Other gastrointestinal disorders (20 sources) Irritable bowel syndrome; Translations: [Irritable bowel syndrome without diarrhea] Chronic Other gastrointestinal disorders (20 sources) Irritable bowel syndrome with diarrhea; Translations: [Irritable bowel syndrome with diarrhea] Chronic Other gastrointestinal disorders (4 sources) Irritable bowel syndrome without diarrhea Onset: 09-13-2021 Resolved: 10-02-2021 Chronic Other gastrointestinal disorders (1 source) Irritable bowel syndrome with diarrhea Onset: 12-17-2021 Resolved: 12-17-2021 Chronic Other gastrointestinal disorders (20 sources) Constipation; Translations: [Constipation, unspecified] 03-28-2017 Episodic Other gastrointestinal disorders (20 sources) Dysphagia; Translations: [Dysphagia, unspecified] Episodic Other injuries and conditions due to external causes (3 sources) Other injury of unspecified body region, initial encounter; Translations: [Abrasion or friction burn of other, multiple, and unspecified sites, without mention of infection] Onset: 02-06-2022 Resolved: 02-06-2022 Episodic Other injuries and conditions due to external causes (9 sources) Minor head injury; Translations: [Unspecified injury of head, initial encounter] 01-13-2022 Episodic Other injuries and conditions due to external causes (9 sources) Abrasion; Translations: [Other injury of unspecified body region, initial encounter] 01-13-2022 Episodic Other injuries and conditions due to external causes (3 sources) Unspecified injury of head, initial encounter; Translations: [Head injury, unspecified] 01-15-2022 Episodic Other liver diseases (20 sources) Steatosis of liver; Translations: [Fatty (change of) liver, not elsewhere classified] Chronic Other liver diseases (1 source) Abnormal levels of other serum enzymes Episodic Other lower respiratory disease (20 sources) Solitary nodule of lung; Translations: [Solitary pulmonary nodule] Episodic Other lower respiratory disease (1 source) Rib pain; Translations: [Pleurodynia] Episodic Other lower respiratory disease (1 source) Nodule of lung 10-26-2020 Episodic Other nervous system disorders (20 sources) Neuropathy; Translations: [Polyneuropathy, unspecified] 10-26-2020 Chronic Other nervous system disorders (11 sources) Polyneuropathy, unspecified; Translations: [Neuropathy G62.9] Onset: 04-04-2021 Resolved: 03-19-2022 Chronic Other nervous system disorders (20 sources) Nervous system symptoms; Translations: [Other abnormalities of gait and mobility] Episodic Other nervous system disorders (2 sources) Other abnormalities of gait and mobility Onset: 02-06-2022 Resolved: 02-06-2022 Episodic Other nervous system disorders (9 sources) Postoperative pain ; Translations: [Other acute postprocedural pain] 03-27-2017 Episodic Other non-traumatic joint disorders (10 sources) Pain in right knee; Translations: [Pain in joint, lower leg] Onset: 07-24-2011 Resolved: 02-06-2022 Episodic Other non-traumatic joint disorders (1 source) Sacroiliac disorder 10-26-2020 Episodic Other non-traumatic joint disorders (1 source) Pain in unspecified hip Episodic Other non-traumatic joint disorders (1 source) Pain in right hip Episodic Other non-traumatic joint disorders (1 source) Pain in left hip Episodic Other nutritional; endocrine; and metabolic disorders (20 sources) Obese class I; Translations: [Body mass index (BMI) 31.0-31.9, adult] Chronic Other nutritional; endocrine; and metabolic disorders (1 source) Body mass index (BMI) 31.0-31.9, adult Chronic Other nutritional; endocrine; and metabolic disorders (2 sources) Abnormal weight loss; Translations: [Weight loss R63.4] Onset: 04-04-2021 Resolved: 04-04-2021 Episodic Residual codes; unclassified (20 sources) Insomnia; Translations: [Insomnia, unspecified] 01-16-2022 Episodic Residual codes; unclassified (7 sources) Insomnia, unspecified; Translations: [Insomnia G47.00] Onset: 04-04-2021 Resolved: 02-06-2022 Episodic Residual codes; unclassified (5 sources) Edema, unspecified; Translations: [Peripheral edema R60.9] Onset: 04-04-2021 Resolved: 02-06-2022 Episodic Residual codes; unclassified (9 sources) History of operative procedure on lumbosacral spinal structure; Translations: [Other specified postprocedural states] 03-27-2017 Episodic Residual codes; unclassified (1 source) Peripheral edema 10-26-2020 Episodic Rheumatoid arthritis and related disease (2 sources) Rheumatoid arthritis; Translations: [Rheumatoid arthritis, unspecified] Onset: 06-04-2011 12-06-2022 Chronic Septicemia (except in labor) (10 sources) Sepsis; Translations: [Sepsis, unspecified organism] 01-13-2022 Episodic Spondylosis; intervertebral disc disorders; other back problems (20 sources) Lumbosacral spondylosis without myelopathy; Translations: [Other spondylosis with radiculopathy, lumbar region] Onset: 06-18-2021 Resolved: 02-06-2022 Chronic Spondylosis; intervertebral disc disorders; other back problems (20 sources) Low back pain; Translations: [Cervicalgia] Onset: 04-04-2021 Resolved: 09-13-2021 Episodic Spondylosis; intervertebral disc disorders; other back problems (1 source) Spondylosis; intervertebral disc disorders; other back problems; Translations: [Other spondylosis with radiculopathy, lumbar region] Onset: 04-24-2023 Superficial injury; contusion (20 sources) Hematoma of right lower leg; Translations: [Contusion of right lower leg, initial encounter] 01-21-2022 Episodic Thyroid disorders (20 sources) Hypothyroidism; Translations: [Hypothyroidism, unspecified] Onset: 04-04-2021 Resolved: 10-02-2021 Chronic Urinary tract infections (20 sources) Cystitis, unspecified without hematuria; Translations: [Acute urinary tract infection] Onset: 06-18-2021 Resolved: 02-06-2022 Episodic Past or Other Problems Problem Classification Problem Date Documented Da te Episodic/Chronic Cardiac dysrhythmias (1 source) Palpitations; Translations: [Palpitations] Onset: 07-24-2022 Episodic Deficiency and other anemia (1 source) Anemia, unspecified Onset: 10-02-2021 Resolved: 10-02-2021 Episodic Nonmalignant breast conditions (2 sources) Breast signs and symptoms; Translations: [Other signs and symptoms in breast] Onset: 08-29-2022 Episodic Other acquired deformities (1 source) Unspecified acquired deformity of unspecified lower leg Onset: 12-27-2021 Resolved: 12-27-2021 Episodic Other and unspecified benign neoplasm (2 sources) Personal history of colonic polyps Onset: 09-13-2021 Resolved: 12-17-2021 Episodic Other connective tissue disease (2 sources) Left achilles tendonitis; Translations: [Achilles tendinitis, left leg] Onset: 12-08-2022 12-08-2022 Episodic Other connective tissue disease (2 sources) Calcaneal spur; Translations: [Calcaneal spur, unspecified foot] Onset: 12-08-2022 12-08-2022 Episodic Other female genital disorders (2 sources) Burning sensation of vulva; Translations: [Other specified conditions associated with female genital organs and menstrual cycle] Onset: 12-06-2022 12-06-2022 Episodic Other gastrointestinal disorders (1 source) Dysphagia, unspecified Onset: 01-07-2022 Resolved: 01-07-2022 Episodic Other gastrointestinal disorders (2 sources) Change in bowel habit Onset: 09-13-2021 Resolved: 09-13-2021 Episodic Other lower respiratory disease (2 sources) Pleurodynia; Translations: [Pleurodynia] Onset: 08-12-2022 Episodic Other nervous system disorders (2 sources) Notalgia paresthetica; Translations: [Paresthesia of skin] Onset: 12-06-2022 12-06-2022 Episodic Other nervous system disorders (2 sources) Unsteady when standing; Translations: [Unsteadiness on feet] Onset: 12-06-2022 12-06-2022 Episodic Other non-traumatic joint disorders (1 source) Pain in unspecified knee; Translations: [Knee pain M25.569] Onset: 04-04-2021 Resolved: 04-04-2021 Episodic Other screening for suspected conditions (not mental disorders or infectious disease) (11 sources) Encounter for screening mammogram for malignant neoplasm of breast; Translations: [Other specified abnormal findings of blood chemistry] Onset: 04-04-2021 Resolved: 02-06-2022 Episodic Unclassified (2 sources) Cough R05.9 Onset: 10-01-2021 Resolved: 10-02-2021 Unclassified (1 source) Lumbar pain M54.50 Results Test Name Value Interpretation Reference Range Facility CBC W Auto Differential pane l (Bld)on 08-08-2023 Basophils (Bld) [#/Vol] 0.00 10*3/uL Normal <0.11 [facility] Comment on above: Order Comment: Speci men Type: BLOOD SPECIMEN Ordering Facility: [facility] Address: [address] [place] [address] Performed By: #### 5 7021-8 #### [facility] CLIA [id number] [address] [id number] [facility] CLIA [id number] [address] [place] [address] [place] Basophils/100 WBC (Bld) 0.0 % Normal [facility] Comment on above: Order Comment: Speci men Type: BLOOD SPECIMEN Ordering Facility: [facility] Address: [address] [place] [address] Performed By: #### 5 7021-8 #### [facility] CLIA [id number] [address] [place] [address] LAB CLIA [id number] [address] [place] [address] [place] Differential cell count method Nom (Bld) Manual Normal [facility] Comment on above: Order Comment: Speci men Type: BLOOD SPECIMEN Ordering Facility: [facility] Address: [address] [place] [address] Performed By: #### 5 7021-8 #### [facility] CLIA [id number] [address] [place] [address] LAB CLIA [id number] [address] [place] [address] [place] Eosinophils (Bld) [#/Vol] 0.19 10*3/uL Normal <0.46 [facility] Comment on above: Order Comment: Speci men Type: BLOOD SPECIMEN Ordering Facility: [facility] Address: [address] [place] [address] Performed By: #### 5 7021-8 #### [facility] CLIA [id number] [address] [place] [address] LAB CLIA [id number] [address] [place] [address] [place] Eosinophils/100 WBC (Bld) 1.0 % Normal [facility] Comment on above: Order Comment: Speci men Type: BLOOD SPECIMEN Ordering Facility: [facility] Address: [address] [place] [address] Performed By: #### 5 7021-8 #### [facility] CLIA [id number] [address] [place] [address] LAB CLIA [id number] [address] [place] [address] [place] Erythrocyte distribution width (RBC) [Ratio] 14.4 % Normal 11.5-15.0 [facility] Comment on above: Order Comment: Speci men Type: BLOOD SPECIMEN Ordering Facility: [facility] Address: [address] [place] [address] Performed By: #### 5 7021-8 #### [facility] CLIA [id number] [address] [place] [address] LAB CLIA [id number] [address] [place] [address] [place] Hematocrit (Bld) [Volume fraction] 40.8 % Normal 36.0-46.0 [facility] Comment on above: Order Comment: Speci men Type: BLOOD SPECIMEN Ordering Facility: [facility] Address: [address] [place] [address] Performed By: #### 5 7021-8 #### [facility] CLIA [id number] [address] [place] [address] LAB CLIA [id number] [address] [place] [address] [place] Hemoglobin (Bld) [Mass/Vol] 12.9 g/dL Normal 11.5-15.5 [facility] Comment on above: Order Comment: Speci men Type: BLOOD SPECIMEN Ordering Facility: [facility] Address: [address] [id number] Performed By: #### 5 7021-8 #### [facility] CLIA [id number] [address] [place] [address] LAB CLIA [id number] [address] [place], [place] [id number] [place] Lymphocytes (Bld) [#/Vol] 13.41 10*3/uL High 1.00-4.00 [facility] Comment on above: Order Comment: Speci men Type: BLOOD SPECIMEN Ordering Facility: [facility] Address: [address] [place] [address] Performed By: #### 5 7021-8 #### [facility] CLIA [id number] [address] [place] [address] LAB CLIA [id number] [address] [place] [address] [place] Lymphocytes/100 WBC (Bld) 69.0 % Normal [facility] Comment on above: Order Comment: Speci men Type: BLOOD SPECIMEN Ordering Facility: [facility] Address: [address] [place] [address] Performed By: #### 5 7021-8 #### [facility] CLIA [id number] [address] [place] [address] LAB CLIA [id number] [address] [place] [address] [place] MCH (RBC) [Entitic mass] 28.7 pg Normal 26.0-34.0 [facility] Comment on above: Order Comment: Speci men Type: BLOOD SPECIMEN Ordering Facility: [facility] Address: [address] [place] [address] Performed By: #### 5 7021-8 #### [facility] CLIA [id number] [address] [place] [address] LAB CLIA [id number] [address] [place] [address] [place] MCHC (RBC) [Mass/Vol] 31.6 g/dL Normal 30.5-36.0 [facility] Comment on above: Order Comment: Speci men Type: BLOOD SPECIMEN Ordering Facility: [facility] Address: [address] [place] [address] Performed By: #### 5 7021-8 #### [facility] [facility] CLIA [id number] [address] [place] [address] LAB CLIA [id number] [address] [place] [address] [place] MCV (RBC) [Entitic vol] 90.7 fL Normal 80.0-100.0 [facility] Comment on above: Order Comment: Speci men Type: BLOOD SPECIMEN Ordering Facility: [facility] Address: [address] [place] [address] Performed By: #### 5 7021-8 #### [facility] CLIA [id number] [address] [place] [address] LAB CLIA [id number] [address] [place] [address] [place] Monocytes (Bld) [#/Vol] 0.39 10*3/uL Normal <0.87 [facility] Comment on above: Order Comment: Speci men Type: BLOOD SPECIMEN Ordering Facility: [facility] Address: [address] [place] [address] Performed By: #### 5 7021-8 #### [facility] CLIA [id number] [address] [place] [address] LAB CLIA [id number] [address] [place] [address] [place] Monocytes/100 WBC (Bld) 2.0 % Normal [facility] Comment on above: Order Comment: Speci men Type: BLOOD SPECIMEN Ordering Facility: [facility] Address: [address] [place] [address] Performed By: #### 5 7021-8 #### [facility] CLIA [id number] [address] [place] [address] LAB CLIA [id number] [address] [place] [address] [place] Neutrophils (Bld) [#/Vol] 5.44 10*3/uL Normal 1.45-7.50 [facility] Comment on above: Order Comment: Speci men Type: BLOOD SPECIMEN Ordering Facility: [facility] Address: [address] [place] [address] Performed By: #### 5 7021-8 #### [facility] CLIA [id number] [address] [place] [address] LAB CLIA [id number] [address] [place] [address] [place] Neutrophils/100 WBC (Bld) 28.0 % Normal [facility] Comment on above: Order Comment: Speci men Type: BLOOD SPECIMEN Ordering Facility: [facility] Address: [address] [place] [address] Performed By: #### 5 7021-8 #### [facility] CLIA [id number] [address] [place] [address] LAB CLIA [id number] [address] [place] [address] [place] Nucleated RBC (Bld) [#/Vol] 10*3/uL Normal <0.01 [facility] Comment on above: Order Comment: Speci men Type: BLOOD SPECIMEN Ordering Facility: [facility] Address: [address] [place] [address] Performed By: #### 5 7021-8 #### [facility] CLIA [id number] [address] [place] [address] LAB CLIA [id number] [address] [place] [address] [place] Nucleated RBC/100 WBC (Bld) [Ratio] 0.0 /100 WBC Normal [facility] Comment on above: Order Comment: Speci men Type: BLOOD SPECIMEN Ordering Facility: [facility] Address: [address] [place] [address] Performed By: #### 5 7021-8 #### [facility] CLIA [id number] [address] [place] [address] LAB CLIA [id number] [address] [place] [address] [place] Ovalocytes LM Ql (Bld) Few Normal [facility] Comment on above: Order Comment: Speci men Type: BLOOD SPECIMEN Ordering Facility: [facility] Address: [address] [place] [address] Performed By: #### 5 7021-8 #### [facility] CLIA [id number] [address] [place] [address] LAB CLIA [id number] [address] [place] [address] [place] Platelet mean volume (Bld) [Entitic vol] 10.5 fL Normal 9.0-12.7 [facility] Comment on above: Order Comment: Speci men Type: BLOOD SPECIMEN Ordering Facility: [facility] Address: [address] [place] [address] Performed By: #### 5 7021-8 #### [facility] CLIA [id number] [address] [place] [address] LAB CLIA [id number] [address] [place] [address] [place] Platelets (Bld) [#/Vol] 276 10*3/uL Normal 150-400 [facility] Comment on above: Order Comment: Speci men Type: BLOOD SPECIMEN Ordering Facility: [facility] Address: [address] [place] [address] Performed By: #### 5 7021-8 #### [facility] CLIA [id number] [address] [place] [address] LAB CLIA [id number] [address] [place] [address] [place] Platelets Estimate (Bld) [#/Vol] Adequate Normal [facility] Comment on above: Order Comment: Speci men Type: BLOOD SPECIMEN Ordering Facility: [facility] Address: [address] [place] [address] Performed By: #### 5 7021-8 #### [facility] CLIA [id number] [address] [place] [address] LAB CLIA [id number] [address] [place] [address] [place] Polychromasia LM Ql (Bld) Slight Normal [facility] Comment on above: Order Comment: Speci men Type: BLOOD SPECIMEN Ordering Facility: [facility] Address: [address] [place] [address] Performed By: #### 5 7021-8 #### [facility] CLIA [id number] [address] [place] [address] LAB CLIA [id number] [address] [place] [address] [place] RBC (Bld) [#/Vol] 4.50 10*6/uL Normal 3.90-5.20 [facility] Comment on above: Order Comment: Speci men Type: BLOOD SPECIMEN Ordering Facility: [facility] Address: [address] [place] [address] Performed By: #### 5 7021-8 #### [facility] CLIA [id number] [address] [place] [address] LAB CLIA [id number] [address] [place] [address] [place] RED CELL MORPH Reviewed: see result s of individual morphologies Normal [facility] Comment on above: Order Comment: Speci men Type: BLOOD SPECIMEN Ordering Facility: [facility] Address: [address] [place] [address] Performed By: #### 5 7021-8 #### [facility] CLIA [id number] [address] [place] [address] LAB CLIA [id number] [address] [place], [place] [address] [place] WBC (Bld) [#/Vol] 19.43 10*3/uL High 3.70-11.00 [facility] Comment on above: Order Comment: Speci men Type: BLOOD SPECIMEN Ordering Facility: [facility] Address: [address] [place] [address] Performed By: #### 5 7021-8 #### [facility] CLIA [id number] [address] [place], [place] [address] [facility] CLIA [id number] [address] [place] [address] [place] CNOVSPon 08-08-2023 CNOVSP Visit (SP) Office ([facility]) KATHY WASHBURN ([id number]) 1940 F Date Time Provider Department 08/08/23 2:15 PM FRANCINE LARES During your visit today, we recorded the following information about you: Temperature Pulse Respiration Blood pressure 97.3 degrees 74/minute 18/minute 136/80 Weight 105.2 kg Francine Lares MD 08/08/2023 2:59 PM Signed PATIENT NAME: Kathy Washburn CLINIC NO.: [id number] ATTENDING PHYSICIAN: Francine Lares MD DATE OF SERVICE: August 08, 2023 Some of the elements of this note have been copied from my previous progress note dated 02/07/2023. All the information has been reviewed carefully. Dear Dr. Francine Lares here is an update on a follow up visit on female Kathy Washburn at the clinic August 08, 2023 Diagnosis: Binet Stage A CLL Treatment History: HPI: Kathy Washburn is a 83 year old year old female here for follow up. Doing very well and denies any fevers and or chills. He is going in a cruise with his son PAST MEDICAL HISTORY Diagnosis Date Depression Diabetes mellitus (HCC) Hypertension Hypothyroidism Inflammatory bowel diseases (IBD) Leukocytosis Mixed hyperlipidemia Neuropathy Rheumatism, unspecified Social History Tobacco Use Smoking status: Former Packs/day: 1.50 Years: 20.00 Additional pack years: 0.00 Total pack years: 30.00 Types: Cigarettes Quit date: 07/14/1999 Years since quittin.0 Smokeless tobacco: Never Vaping Use Vaping Use: Never used Substance Use Topics Alcohol use: Not Currently Drug use: Never FAMILY HISTORY Problem Relation Age of Onset Cancer Mother Heart disease Father Hypertension Father Migraines Maternal Grandmother Heart disease Paternal Grandmother Heart disease Paternal Grandfather Past medical, social and family history reviewed without any changes. REVIEW OF SYSTEMS GENERAL: No weight loss, malaise or fevers. No night sweats. HEENT: Negative for headaches, No changes in hearing or vision, no nose bleeds or other nasal problems. RESPIRATORY: Negative for cough, wheezing and shortness of breath CARDIOVASCULAR: Negative for chest pain, leg swelling and palpitations GI: Negative for abdominal discomfort, blood in stools or black stools and change in bowel habits : Negative for dysuria, frequency and incontinence MUSCULOSKELETAL: Negative for joint pain or swelling, back pain, and muscle pain. SKIN: Negative for lesions, rash, and itching. HEMATOLOGY/LYMPHOLOGY Negative for prolonged bleeding, bruising easily, and swollen nodes. NEURO: Negative for numbness or tingling of hands/feet. No weakness. PHYSICAL EXAMINATION: There were no vitals taken for this visit. Wt 102.7 kg (226 lb 6.4 oz) BMI 32.49 kg/m2 Last 3 Encounter Wt Readings: Date: Wt: 04/18/2022 102.7 kg (226 lb 6.4 oz) 04/04/2022 103.8 kg (228 lb 12.8 oz) 08/01/2011 109.3 kg (241 lb) General appearance:ECOG PERFORMANCE STATUS: 0- Fully active, able to carry on all pre-disease performance w/o restriction. Patient in NAD. Skin: Skin color, texture, turgor normal. No rashes or lesions. Eyes: Anicteric sclera. Pupils are equally round and reactive to light. Extraocular movements are intact. Lymph Nodes: No cervical, supraclavicular, L axillary node 1-2 cm and no other adenopathy Oropharynx: Lips, mucosa, and tongue normal. Back: No pain to percussion. Negative SLR test Lungs clear to auscultation, No wheezing or rhonchi Heart: RRR without murmur, gallop, or rubs. Abdomen soft, non-tender. No masses, organomegaly Extremities: No deformities. No edema Neuro: Gait and speech normal. Reflexes normal and symmetric. Muscular strength intact. Sensation grossly intact. Rectal: Deferred : Deferred LABS: Glucose (mg/dL) Date Value 02/07/2023 117 Potassium (mmol/L) Date Value 02/07/2023 4.4 Sodium (mmol/L) Date Value 02/07/2023 138 Chloride (mmol/L) Date Value 02/07/2023 101 CO2 (mmol/L) Date Value 02/07/2023 26 Creatinine (mg/dL) Date Value 02/07/2023 1.16 BUN (mg/dL) Date Value 02/07/2023 35 Anion Gap (mmol/L) Date Value 02/07/2023 11 Calcium, Total (mg/dL) Date Value 02/07/2023 9.2 Protein, Total (g/dL) Date Value 02/07/2023 6.9 Albumin (g/dL) Date Value 02/07/2023 4.4 Bilirubin, Total (mg/dL) Date Value 02/07/2023 0.2 Alkaline Phosphatase (U/L) Date Value 02/07/2023 119 AST (U/L) Date Value 02/07/2023 21 ALT (U/L) Date Value 02/07/2023 21 WBC Date Value Ref Range Status 08/08/2023 19.43 (H) 3.70 - 11.00 k/uL Preliminary RBC Date Value Ref Range Status 08/08/2023 4.50 3.90 - 5.20 m/uL Preliminary Hemoglobin Date Value Ref Range Status 08/08/2023 12.9 11.5 - 15.5 g/dL Preliminary Hematocrit Date Value Ref Range Status 08/08/2023 40.8 36.0 - 46.0 % Preliminary MCV Date Value Ref Range St (more content not included)... Normal [facility] metabolic 2000 panelon 08-08-2023 Albumin [Mass/Vol] 4.4 g/dL Normal 3.9-4.9 [facility] Comment on above: Order Comment: Speci men Type: BLOOD SPECIMEN Ordering Facility: [facility] Address: [address] [place] [address] Performed By: #### 2 4323-8 #### [facility] CLIA [id number] [address] [place] [address] ALP [Catalytic activity/Vol] 121 U/L Normal 34-123 [facility] Comment on above: Order Comment: Speci men Type: BLOOD SPECIMEN Ordering Facility: [facility] Address: [address] [place] [address] Performed By: #### 2 4323-8 #### [facility] CLIA [id number] [address] [place] [address] ALT [Catalytic activity/Vol] 30 U/L Normal 7-38 [facility] Comment on above: Order Comment: Speci men Type: BLOOD SPECIMEN Ordering Facility: [facility] Address: [address] [place] [address] Performed By: #### 2 4323-8 #### [facility] CLIA [id number] [address] [place] [address] Anion gap [Moles/Vol] 9 mmol/L Normal 9-18 [facility] Comment on above: Order Comment: Speci men Type: BLOOD SPECIMEN Ordering Facility: [facility] Address: [address] [place] [address] Performed By: #### 2 4323-8 #### [facility] CLIA [id number] [address] [place] [address] AST [Catalytic activity/Vol] 29 U/L Normal 13-35 [facility] Comment on above: Order Comment: Speci men Type: BLOOD SPECIMEN Ordering Facility: [facility] Address: [address] [place] [address] Performed By: #### 2 4323-8 #### [facility] CLIA [id number] [address] [place] [address] Bilirubin [Mass/Vol] 0.3 mg/dL Normal 0.2-1.3 [facility] Comment on above: Order Comment: Speci men Type: BLOOD SPECIMEN Ordering Facility: [facility] Address: [address] [place], [place] [address] Performed By: #### 2 4323-8 #### [facility] CLIA [id number] [address] [place] [address] Calcium [Mass/Vol] 10.1 mg/dL Normal 8.5-10.2 [facility] Comment on above: Order Comment: Speci men Type: BLOOD SPECIMEN Ordering Facility: [facility] Address: [address] [place] [address] Performed By: #### 2 4323-8 #### [facility] CLIA [id number] [address] [place] [address] Chloride [Moles/Vol] 103 mmol/L Normal 97-105 [facility] Comment on above: Order Comment: Speci men Type: BLOOD SPECIMEN Ordering Facility: [facility] Address: [address] [place] [address] Performed By: #### 2 4323-8 #### [facility] CLIA [id number] [address] [place] [address] CO2 [Moles/Vol] 28 mmol/L Normal 22-30 [facility] Comment on above: Order Comment: Speci men Type: BLOOD SPECIMEN Ordering Facility: [facility] Address: [address] [place] [address] Performed By: #### 2 4323-8 #### [facility] CLIA [id number] [address] [place] [address] Creatinine [Mass/Vol] 1.33 mg/dL High 0.58-0.96 [facility] Comment on above: Order Comment: Speci men Type: BLOOD SPECIMEN Ordering Facility: [facility] Address: [address] [place] [address] Performed By: #### 2 4323-8 #### [facility] CLIA [id number] [address] [place] [address] Creatinine and Glomerular filtration rate.predicted panel (S/P/Bld) 40 mL/min/1.73m??? Low >=60 [facility] Comment on above: Order Comment: Speci johnna Type: BLOOD SPECIMEN Ordering Facility: [facility] Address: [address] [place] [address] Result Comment: Aimee mated Glomerular Filtration Rate (eGFR) is calculated using the 2020 CKD-EPI creatinine equation. This equation utilizes serum creatinine, sex, and age as parameters. The creatinine assay has traceable calibration to isotope dilution-mass spectrometry. Refer to KDIGO guidelines for clinical interpretation. In patients with unstable renal function, e.g. those with acute kidney injury, the eGFR may not accurately reflect actual GFR. Performed By: #### 2 4323-8 #### [facility] CLIA [id number] [address] [place] [address] Glucose [Mass/Vol] 207 mg/dL High 74-99 [facility] Comment on above: Order Comment: Speci johnna Type: BLOOD SPECIMEN Ordering Facility: [facility] Address: [address] [place] [address] Result Comment: The [place] Diabetes Association (ADA) provides guidance for cutoff values for fasting glucose and random glucose. The ADA defines fasting as no caloric intake for at least 8 hours. Fasting plasma glucose results between 100 to 125 mg/dL indicate increased risk for diabetes (prediabetes). Fasting plasma glucose results greater than or equal to 126 mg/dL meet the criteria for diagnosis of diabetes. In the absence of unequivocal hyperglycemia, results should be confirmed by repeat testing. In a patient with classic symptoms of hyperglycemia or hyperglycemic crisis, random plasma glucose results greater than or equal to 200 mg/dL meet the criteria for diagnosis of diabetes. Reference: Standards of Medical Care in Diabetes 2016, [place] Diabetes Association. Diabetes Care. 2016.39(Suppl 1). Performed By: #### 2 4323-8 #### [facility] CLIA [id number] [address] [place] [address] Potassium [Moles/Vol] 4.9 mmol/L Normal 3.7-5.1 [facility] Comment on above: Order Comment: Speci men Type: BLOOD SPECIMEN Ordering Facility: [facility] Address: [address] [place], [place] [address] Performed By: #### 2 4323-8 #### [facility] CLIA [id number] [address] [place] [address] Protein [Mass/Vol] 7.5 g/dL Normal 6.3-8.0 [facility] Comment on above: Order Comment: Speci men Type: BLOOD SPECIMEN Ordering Facility: [facility] Address: [address] [place] [address] Performed By: #### 2 4323-8 #### [facility] CLIA [id number] [address] [place] [address] Sodium [Moles/Vol] 140 mmol/L Normal 136-144 [facility] Comment on above: Order Comment: Speci men Type: BLOOD SPECIMEN Ordering Facility: [facility] Address: [address] [place] [address] Performed By: #### 2 4323-8 #### [facility] CLIA [id number] [address] [place] [address] Urea nitrogen [Mass/Vol] 46 mg/dL High 7-21 [facility] Comment on above: Order Comment: Speci men Type: BLOOD SPECIMEN Ordering Facility: [facility] Address: [address] [place] [address] Performed By: #### 2 4323-8 #### [facility] CLIA [id number] [address] [place] [address] XR knee RT 4V*on 04-24-2023 XR knee RT 4V* [facility] [place] [address] [place] [address] XRay Report Signed Patient: Kathy Washburn MR#: [id number] : 1940 Acct:[id number] Age/Sex: 82 / F ADM Date: 04/24/23 Loc: XD Room: Type: [facility] Attending Dr: Ayanna Vicente DO Copies to: Ayanna Vicente DO Ordering Provider: Ayanna Vicente DO Date of Service: 04/24/23 XR/XR lumbar spine AP/LAT/FLX/EXT: M47.26 ([id number]) XR/XR knee RT 4V*: M25.561 ([id number]) XR/XR hip BI w PEL1V: M25.559 LUMBAR SPINE - 4 views bilateral hip series 2 views each with bone view pelvis., Right knee 4 views CLINICAL HISTORY: Low back pain radiating into both hips. Left knee pain for months. COMPARISON: None FINDINGS: Lumbar spine: Posterior hardware fixation L4-L5 without radiographic complication. Vertebral body heights appear maintained. Diffuse moderate degenerative disc disease with endplate and facet joint degenerative changes. No pathological motion on flexion or extension views. SI joints demonstrate degenerative change. Right knee: Knee prostheses without a definite complication. No acute bony process. Bilateral hip series: Moderate degenerative changes of both hips without acute bony process. XR/XR lumbar spine AP/LAT/FLX/EXT IMPRESSION: LUMBAR SPINE DEMONSTRATES DIFFUSE MODERATE DEGENERATIVE DISEASE WITH POSTERIOR HARDWARE FIXATION L4- L5 WITHOUT RADIOGRAPHIC COMPLICATION. RIGHT KNEE SERIES DEMONSTRATES NO EVIDENCE OF HARDWARE COMPLICATION OR ACUTE BONY PROCESS. HIP SERIES DEMONSTRATE MODERATE DEGENERATIVE CHANGES OF BOTH HIPS WITHOUT ACUTE BONY PROCESS. Impression dictated by: Galo Rodriguez Jr., LyndonOArmando04/24/2023 3:10 PM Dictation Location: [place] [address] Transcribed By: [facility] 04/24/23 1510 Dictated By: Galo Rodriguez Jr, DO 04/24/23 1508 Signed By: 04/24/23 1510 Normal [facility] A1C with Estimated Average G [facility] 04-09-2023 Glucose [Mass/Vol] 200 mg/dL Normal [facility] Comment on above: Order Comment: Reaso n for Exam Diabetes type 2, uncontrolled Result Comment: PERF ORMED BY: [facility] [address] [place] [address] PATHOLOGIST OPERATIONS STAFF SPECIALIST SECURITY MATHIEU RASCON M.D. Performed By: #### A 1C [facility] #### [facility] [address] HbA1c (Bld) [Mass fraction] 8.6 % High 4.3-5.6 [facility] Comment on above: Order Comment: Reaso n for Exam Diabetes type 2, uncontrolled Result Comment: Incr eased risk for diabetes: 5.7 - 6.4 diabetes: >6.4 glycemic control for adults with diabetes: <7.0 Performed By: #### A 1C [facility] #### [facility] [address] Alanine aminotransferase [En zymatic activity/volume] in Serum or PlasmaOrdered By: Ayanna Vicente on 04-09-2023 ALT [Catalytic activity/Vol] 25 U/L 7-52 [facility] Albumin [Mass/volume] in Ser um or Plasma by Bromocresol green (BCG) dye binding methoOrdered By: Ayanna Vicente on 04-09-2023 Albumin BCG dye [Mass/Vol] 4.2 g/dL 3.5-5.7 [facility] Alkaline phosphatase [Enzyma tic activity/volume] in Serum or PlasmaOrdered By: Ayanna Vicente on 04-09-2023 ALP [Catalytic activity/Vol] 95 U/L 34-104 [facility] Anisocytosis LM Ql (Bld)Orde red By: Ayanna Vicente on 04-09-2023 Anisocytosis Ql (Bld) Slight Fir [facility] Aspartate aminotransferase [ Enzymatic activity/volume] in Serum or PlasmaOrdered By: Ayanna Vicente on 04-09-2023 AST [Catalytic activity/Vol] 21 U/L 13-39 [facility] Basophils Auto (Bld) [#/Vol] Ordered By: Ayanna Vicente on 04-09-2023 Basophils (Bld) [#/Vol] N/A F [facility] Basophils/100 WBC Auto (Bld) Ordered By: Ayanna Vicente on 04-09-2023 Basophils/100 WBC (Bld) N/A F [facility] Bilirubin.total [Mass/volume ] in Serum or PlasmaOrdered By: Ayanna Vicente on 04-09-2023 Bilirubin [Mass/Vol] 0.4 mg/dL 0.3-1.0 [facility] Calcium [Mass/volume] in Ser um or PlasmaOrdered By: Ayanna Vicente on 04-09-2023 Calcium [Mass/Vol] 9.9 mg/dL 8.6-10.3 [facility] Carbon dioxide, total [Moles /volume] in Serum or PlasmaOrdered By: Ayanna Vicente on 04-09-2023 CO2 [Moles/Vol] 31.5 mmol/L 21.0-31.0 [facility] Chloride [Moles/volume] in S ebony or PlasmaOrdered By: Ayanna Vicente on 04-09-2023 Chloride [Moles/Vol] 103 mmol/L 98-107 [facility] Cholesterol [Mass/volume] in Serum or PlasmaOrdered By: Ayanna Vicente on 04-09-2023 Cholesterol [Mass/Vol] 139 mg/dL 140-200 [facility] Comment on above: Chol less than 200 m g/dl low riskChol 201-239 mg/dl borderline riskChol 240 mg/dl and greater high risk Cholesterol in LDL Calc [Mas s/Vol]Ordered By: Ayanna Vicente on 04-09-2023 Cholesterol in LDL [Mass/Vol] 27 mg/dL 0-100 [facility] Comment on above: LDL ATP III CLASSIFI CATIONLDL less than 100 mg/dL OptimalLDL 100-129 mg/dL Near or above optimalLDL 130-159 mg/dL Borderline highLDL 160-189 mg/dL HighLDL greater than 189 mg/dL Very high Cholesterol in VLDL Calc [Ma ss/Vol]Ordered By: Ayanna Vicente on 04-09-2023 Cholesterol in VLDL [Mass/Vol] 69 mg/dL [facility] Comprehensive Metabolic Pane cynthia 04-09-2023 Albumin [Mass/Vol] 4.2 g/dL Normal 3.5-5.7 [facility] Comment on above: Order Comment: Reaso n for Exam Diabetes type 2, uncontrolled Performed By: #### U RMA #### [facility] [address] Albumin/Globulin [Mass ratio] 1.8 {ratio} Normal [facility] Comment on above: Order Comment: Reaso n for Exam Diabetes type 2, uncontrolled Performed By: #### U RMA #### [facility] [address] [place] [address] ALP [Catalytic activity/Vol] 95 U/L Normal 34-104 [facility] Comment on above: Order Comment: Reaso n for Exam Diabetes type 2, uncontrolled Performed By: #### U RMA #### [facility] [address] [place] [address] ALT [Catalytic activity/Vol] 25 U/L Normal 7-52 [facility] Comment on above: Order Comment: Reaso n for Exam Diabetes type 2, uncontrolled Performed By: #### U RMA #### [facility] [address] [place] [address] Anion gap [Moles/Vol] 10.5 mmol/L Normal 6.0-15.0 [facility] Comment on above: Order Comment: Reaso n for Exam Diabetes type 2, uncontrolled Performed By: #### U RMA #### [facility] [address] [place] [address] AST [Catalytic activity/Vol] 21 U/L Normal 13-39 [facility] Comment on above: Order Comment: Reaso n for Exam Diabetes type 2, uncontrolled Performed By: #### U RMA #### [facility] [address] [place] [address] Bilirubin [Mass/Vol] 0.4 mg/dL Normal 0.3-1.0 [facility] Comment on above: Order Comment: Reaso n for Exam Diabetes type 2, uncontrolled Performed By: #### U RMA #### [facility] [address] [place] [address] [place] Calcium [Mass/Vol] 9.9 mg/dL Normal 8.6-10.3 [facility] Comment on above: Order Comment: Reaso n for Exam Diabetes type 2, uncontrolled Performed By: #### U RMA #### [facility] [address] [place] [address] [place] Chloride [Moles/Vol] 103 mmol/L Normal 98-107 [facility] Comment on above: Order Comment: Reaso n for Exam Diabetes type 2, uncontrolled Performed By: #### U RMA #### [facility] [address] [place] [address] [place] CO2 [Moles/Vol] 31.5 mmol/L High 21.0-31.0 [facility] Comment on above: Order Comment: Reaso n for Exam Diabetes type 2, uncontrolled Performed By: #### U RMA #### [address] Creatinine [Mass/Vol] 1.06 mg/dL Normal 0.60-1.20 [facility] Comment on above: Order Comment: Reaso n for Exam Diabetes type 2, uncontrolled Performed By: #### U RMA #### [place] [address] [place] GFR/1.73 sq M.predicted MDRD (S/P/Bld) [Vol rate/Area] 53.106 mL/min/{1.73_m2} [facility] Comment on above: Order Comment: Reaso n for Exam Diabetes type 2, uncontrolled Performed By: #### U RMA #### [address] Globulin (S) [Mass/Vol] 2.4 g/dL Normal [facility] Comment on above: Order Comment: Reaso n for Exam Diabetes type 2, uncontrolled Performed By: #### U RMA #### [address] Glucose [Mass/Vol] 154 mg/dL High 70-100 [facility] Comment on above: Order Comment: Reaso n for Exam Diabetes type 2, uncontrolled Result Comment: [place] Glucose Reference Range is dependent on time and content of last meal. Glucose of more than 200 mg/dL in a nonstressed, ambulatory subject supports the diagnosis of Diabetes Mellitus. ADA recommended reference range Performed By: #### U RMA #### [place] [address] [place] Potassium [Moles/Vol] 5.0 mmol/L Normal 3.5-5.1 [facility] Comment on above: Order Comment: Reaso n for Exam Diabetes type 2, uncontrolled Performed By: #### U RMA #### [facility] [address] Protein [Mass/Vol] 6.6 g/dL Normal 6.4-8.9 [facility] Comment on above: Order Comment: Reaso n for Exam Diabetes type 2, uncontrolled Performed By: #### U RMA #### [facility] [address] [place] [address] Sodium [Moles/Vol] 140 mmol/L Normal 136-145 [facility] Comment on above: Order Comment: Reaso n for Exam Diabetes type 2, uncontrolled Performed By: #### U RMA #### [facility] [address] [place] [address] Urea nitrogen [Mass/Vol] 28 mg/dL High 7- [facility] Comment on above: Order Comment: Reaso n for Exam Diabetes type 2, uncontrolled Performed By: #### U RMA #### [facility] [address] [place] [address] Creatinine [Mass/volume] in Serum or PlasmaOrdered By: Ayanna Vicente on 04-09-2023 Creatinine [Mass/Vol] 1.06 mg/dL 0.60-1.20 [facility] Diff and CBCon 04-09-2023 Anisocytosis Ql (Bld) Slight Normal [facility] Comment on above: Order Comment: Reaso n for Exam Diabetes type 2, uncontrolled Performed By: #### U RMA #### [facility] [address] [place] [address] [place] Eosinophils/100 WBC (Bld) 5 % High 1-3 [facility] Comment on above: Order Comment: Reaso n for Exam Diabetes type 2, uncontrolled Performed By: #### U RMA #### [facility] [address] [place] [address] [place] Erythrocyte distribution width (RBC) [Ratio] 15.1 % Normal 11.9-15.3 [facility] Comment on above: Order Comment: Reaso n for Exam Diabetes type 2, uncontrolled Performed By: #### U RMA #### [facility] [address] [place] [address] [place] Hematocrit (Bld) [Volume fraction] 37.2 % Normal 34.0-46.4 [facility] Comment on above: Order Comment: Reaso n for Exam Diabetes type 2, uncontrolled Performed By: #### U RMA #### [facility] [address] [place] [address] Hemoglobin (Bld) [Mass/Vol] 12.2 g/dL Normal 11.8-15.4 [facility] Comment on above: Order Comment: Reaso n for Exam Diabetes type 2, uncontrolled Performed By: #### U RMA #### [facility] [address] [place] [address] Lymphocytes/100 WBC (Bld) 59 % High 18-42 [facility] Comment on above: Order Comment: Reaso n for Exam Diabetes type 2, uncontrolled Performed By: #### U RMA #### [address] MCH (RBC) [Entitic mass] 29.1 pg Normal 24.7-34.3 [facility] Comment on above: Order Comment: Reaso n for Exam Diabetes type 2, uncontrolled Performed By: #### U RMA #### [facility] [address] [place] [address] [place] MCV (RBC) [Entitic vol] 88.5 fL Normal 80-100 [facility] Comment on above: Order Comment: Reaso n for Exam Diabetes type 2, uncontrolled Performed By: #### U RMA #### [facility] [address] [place] [address] [place] Mean Corpuscular HGB Conc 32.9 g/dL Normal 32.0-35.0 [facility] Comment on above: Order Comment: Reaso n for Exam Diabetes type 2, uncontrolled Performed By: #### U RMA #### [facility] [address] [place] [address] [place] Monocytes/100 WBC (Bld) 7 % Normal 2-11 [facility] Comment on above: Order Comment: Reaso n for Exam Diabetes type 2, uncontrolled Performed By: #### U RMA #### [facility] [address] [place] [address] [place] Myelocytes 1 % High 0-0 [facility] Comment on above: Order Comment: Reaso n for Exam Diabetes type 2, uncontrolled Performed By: #### U RMA #### [address] Ovalocytes Slight Normal [facility] Comment on above: Order Comment: Reaso n for Exam Diabetes type 2, uncontrolled Performed By: #### U RMA #### [facility] [address] [place] [address] Platelet Estimate Normal Normal Normal [facility] Comment on above: Order Comment: Reaso n for Exam Diabetes type 2, uncontrolled Performed By: #### U RMA #### [address] Platelet mean volume (Bld) [Entitic vol] 9.5 fL Normal 6.3-10.7 [facility] Comment on above: Order Comment: Reaso n for Exam Diabetes type 2, uncontrolled Performed By: #### U RMA #### [address] Platelet Morphology Normal Normal Normal [place] Comment on above: Order Comment: Reaso n for Exam Diabetes type 2, uncontrolled Result Comment: PERF ORMED BY: [place] [address] PATHOLOGIST OPERATIONS STAFF SPECIALIST SECURITY MATHIEU RASCON M.D. Performed By: #### U RMA #### [place] [address] [place] Platelets (Bld) [#/Vol] 211 10*3/uL Normal 150-450 [facility] Comment on above: Order Comment: Reaso n for Exam Diabetes type 2, uncontrolled Performed By: #### U RMA #### [place] [address] [place] RBC (Bld) [#/Vol] 4.20 10*6/uL Normal 3.60-5.00 [place] Comment on above: Order Comment: Reaso n for Exam Diabetes type 2, uncontrolled Performed By: #### U RMA #### [address] [place] [address] [place] Reactive Lymphocytes 1 % Normal 0-12 [facility] Comment on above: Order Comment: Reaso n for Exam Diabetes type 2, uncontrolled Performed By: #### U RMA #### [facility] [address] Segmented neutrophils/100 WBC (Bld) 27 % Low 50-70 [facility] Comment on above: Order Comment: Reaso n for Exam Diabetes type 2, uncontrolled Performed By: #### U RMA #### [address] WBC (Bld) [#/Vol] 15.3 10*3/uL High 3.8-11.6 [place] Comment on above: Order Comment: Reaso n for Exam Diabetes type 2, uncontrolled Performed By: #### U RMA #### [place] [address] [place] Eosinophils Auto (Bld) [#/Vo l]Ordered By: Ayanna Vicente on 04-09-2023 Eosinophils (Bld) [#/Vol] N/A [facility] Eosinophils/100 WBC Auto (Bl d)Ordered By: Ayanna Vicente on 04-09-2023 Eosinophils/100 WBC (Bld) N/A [facility] Eosinophils/100 WBC Manual c nt (Bld)Ordered By: Ayanna Vicente on 04-09-2023 Eosinophils/100 WBC (Bld) 5 % 1-3 [facility] Erythrocyte distribution wid th Auto (RBC) [Ratio]Ordered By: Ayanna Vicente on 04-09-2023 Erythrocyte distribution width (RBC) [Ratio] 15.1 % 11.9-15.3 [facility] Free T4 (Free Thyroxine)on 0 04-09-2023 Free T4 [Mass/Vol] 0.78 ng/dL Normal 0.61-1.12 [facility] Comment on above: Order Comment: Reaso n for Exam Other abnormal blood chemistry Reason for Exam Hyperlipidemia PT IS FASTING Reason for Exam Hypothyroidism Performed By: #### L IPID, CMP, T4F, TSH3 #### [facility] [address] [place] [address] [place] Globulin Calc (S) [Mass/Vol] Ordered By: Ayanna Vicente on 04-09-2023 Globulin (S) [Mass/Vol] 2.4 g/dL [facility] Glucose [Mass/volume] in Ser um or PlasmaOrdered By: Ayanna Vicente on 04-09-2023 Glucose [Mass/Vol] 154 mg/dL 70-100 [facility] Comment on above: ADA recommended refe rence rangeRandom Glucose Reference Range is dependent on time and content of last meal. Glucose of more than 200 mg/dL in a nonstressed, ambulatory subject supports the diagnosis of Diabetes Mellitus. Glucose mean value [Mass/vol ume] in Blood Estimated from glycated hemoglobinOrdered By: Ayanna Vicente on 04-09-2023 Average glucose Estimated from glycated hemoglobin (Bld) [Mass/Vol] 200 mg/dL [facility] Hematocrit Auto (Bld) [Volum e fraction]Ordered By: Ayanna Vicente on 04-09-2023 Hematocrit (Bld) [Volume fraction] 37.2 % 34.0-46.4 [facility] Hemoglobin A1c percentageOrd ered By: Ayanna Vicente on 04-09-2023 HbA1c (Bld) [Mass fraction] 8.6 % 4.3-5.6 [facility] Comment on above: Increased risk for d iabetes: 5.7 - 6.4diabetes: >6.4glycemic control for adults with diabetes: <7.0 Hemoglobin [Mass/volume] in BloodOrdered By: Ayanna Vicente on 04-09-2023 Hemoglobin (Bld) [Mass/Vol] 12.2 g/dL 11.8-15.4 [facility] Leukocytes [#/volume] correc andreina for nucleated erythrocytes in Blood by Automated counOrdered By: Ayanna Vicente on 04-09-2023 WBC corrected for nucl RBC Auto (Bld) [#/Vol] 15.3 10*3/uL 3.8-11.6 [facility] Lipid Panelon 04-09-2023 Cholesterol [Mass/Vol] 139 mg/dL Low 140-200 [facility] Comment on above: Order Comment: Reaso n for Exam Diabetes type 2, uncontrolled Result Comment: Chol less than 200 mg/dl low risk Chol 201-239 mg/dl borderline risk Chol 240 mg/dl and greater high risk Performed By: #### U RMA #### [facility] [address] [place] [address] [place] Cholesterol in HDL [Mass/Vol] 42 mg/dL Normal 23-92 [facility] Comment on above: Order Comment: Reaso n for Exam Diabetes type 2, uncontrolled Result Comment: HDL CHOL ATP-III CLASSIFICATION Cardiovascular Risk HDL > or equal to 60 mg/dL LOW HDL < 40 mg/dL HIGH Performed By: #### U RMA #### [facility] [address] [place] [address] [place] Cholesterol.total/Choles terol in HDL [Mass ratio] 3.3 {ratio} Normal <5.0 [facility] Comment on above: Order Comment: Reaso n for Exam Diabetes type 2, uncontrolled Performed By: #### U RMA #### [facility] [address] LDL Cholesterol,Calculated 27 mg/dL Normal 0-100 [facility] Comment on above: Order Comment: Reaso n for Exam Diabetes type 2, uncontrolled Result Comment: LDL ATP III CLASSIFICATION LDL less than 100 mg/dL Optimal LDL 100-129 mg/dL Near or above optimal LDL 130-159 mg/dL Borderline high LDL 160-189 mg/dL High LDL greater than 189 mg/dL Very high Performed By: #### U RMA #### [facility] [address] [place] [id number] [place] Triglyceride w/Reflex 349 mg/dL High 0-149 [facility] Comment on above: Order Comment: Reaso n for Exam Diabetes type 2, uncontrolled Result Comment: TRIG ATP III CLASSIFICATION TRIG less than 150 mg/dL Normal TRIG 150-199 mg/dL Borderline high TRIG 200-500 mg/dL High TRIG greater than 500 mg/dL Very high Standard traceable to the Center for Disease Conrtrol and Prevention (CDC) test method. Performed By: #### U RMA #### [facility] [address] [place] [id number] [place] VLDL CHOLESTEROL 69 mg/dL Normal [facility] Comment on above: Order Comment: Reaso n for Exam Diabetes type 2, uncontrolled Performed By: #### U RMA #### [address] Lymphocytes Auto (Bld) [#/Vo l]Ordered By: Ayanna Vicente on 04-09-2023 Lymphocytes (Bld) [#/Vol] N/A [facility] Lymphocytes/100 WBC Auto (Bl d)Ordered By: Ayanna Vicente on 04-09-2023 Lymphocytes/100 WBC (Bld) N/A [facility] Lymphocytes/100 WBC Manual c nt (Bld)Ordered By: Ayanna Vicente on 04-09-2023 Lymphocytes/100 WBC (Bld) 59 % 18-42 [facility] MCH Auto (RBC) [Entitic mass ]Ordered By: Ayanna Vicente on 04-09-2023 MCH (RBC) [Entitic mass] 29.1 pg 24.7-34.3 [facility] MCHC Auto (RBC) [Mass/Vol]Or dered By: Ayanna Vicente on 04-09-2023 MCHC (RBC) [Mass/Vol] 32.9 g/dL 32.0-35.0 [facility] MCV Auto (RBC) [Entitic vol] Ordered By: Ayanna Vicente on 04-09-2023 MCV (RBC) [Entitic vol] 88.5 fL 80-100 [facility] Monocytes Auto (Bld) [#/Vol] Ordered By: Ayanna Vicente on 04-09-2023 Monocytes (Bld) [#/Vol] N/A [facility] Monocytes/100 WBC Auto (Bld) Ordered By: Ayanna Vicente on 04-09-2023 Monocytes/100 WBC (Bld) N/A [facility] Monocytes/100 WBC Manual cnt (Bld)Ordered By: Ayanna Vicente on 04-09-2023 Monocytes/100 WBC (Bld) 7 % 2-11 [facility] Myelocytes/100 WBC Manual cn t (Bld)Ordered By: Ayanna Vicente on 04-09-2023 Myelocytes/100 WBC (Bld) 1 % 0-0 [facility] Neutrophils Auto (Bld) [#/Vo l]Ordered By: Ayanna Vicente on 04-09-2023 Neutrophils (Bld) [#/Vol] N/A [facility] Neutrophils/100 WBC Auto (Bl d)Ordered By: Ayanna Vicente on 04-09-2023 Neutrophils/100 WBC (Bld) N/A [facility] No Panel InformationOrdered By: Ayanna Vicente on 04-09-2023 Estimated GFR (CKD-EPI) 53.106 mL/Min [facility] Creatinine Clearance (Chem N/A [facility] Nucleated erythrocytes [Pres ence] in Blood by Automated countOrdered By: Ayanna Vicente on 04-09-2023 Nucleated RBC Auto Ql (Bld) N/A [facility] Ovalocyte detectionOrdered B y: Ayanna Vicente on 04-09-2023 Ovalocytes LM Ql (Bld) Slight Fi [facility] Platelet adequacy [Presence] in Blood by Light microscopyOrdered By: Ayanna Vicente on 04-09-2023 Platelets LM Ql (Bld) Normal Normal [facility] Platelet mean volume Auto (B ld) [Entitic vol]Ordered By: Ayanna Vicente on 04-09-2023 Platelet mean volume (Bld) [Entitic vol] 9.5 fL 6.3-10.7 [facility] Platelet morphology finding [Identifier] in BloodOrdered By: Ayanna Vicnete on 04-09-2023 Platelet morphology finding Nom (Bld) Normal Normal [facility] Platelets Auto (Bld) [#/Vol] Ordered By: Ayanna Vicente on 04-09-2023 Platelets (Bld) [#/Vol] 211 10*3/uL 150-450 [facility] Potassium [Moles/volume] in Serum or PlasmaOrdered By: Ayanna Vicente on 04-09-2023 Potassium [Moles/Vol] 5.0 mmol/L 3.5-5.1 [facility] Protein [Mass/volume] in Ser um or PlasmaOrdered By: Ayanna Vicente on 04-09-2023 Protein [Mass/Vol] 6.6 g/dL 6.4-8.9 [facility] RBC Auto (Bld) [#/Vol]Ordere d By: Ayanna Vicente on 04-09-2023 RBC (Bld) [#/Vol] 4.20 10*6/uL 3.60-5.00 [place] RBC morphologyOrdered By: Vasile angelaleonila Vicente on 04-09-2023 RBC morphology finding Nom (Bld) N/A [facility] Segmented neutrophils/100 WB C Manual cnt (Bld)Ordered By: Ayanna Vicente on 04-09-2023 Segmented neutrophils/100 WBC (Bld) 27 % 50-70 [facility] Serum or plasma albumin/glob ulin mass ratioOrdered By: Ayanna Vicente on 04-09-2023 Albumin/Globulin [Mass ratio] 1.8 {ratio} [facility] Serum or plasma anion gap de terminationOrdered By: Ayanna Vicente on 04-09-2023 Anion gap [Moles/Vol] 10.5 mmol/L 6.0-15.0 [facility] Serum or plasma high density lipoprotein (HDL) cholesterol measurementOrdered By: Ayanna Vicente on 04-09-2023 Cholesterol in HDL [Mass/Vol] 42 mg/dL 23-92 [facility] Comment on above: HDL CHOL ATP-III CLA SSIFICATION Cardiovascular RiskHDL > or equal to 60 mg/dL LOWHDL < 40 mg/dL HIGH Serum or plasma total choles terol/high density lipoprotein (HDL) cholesterol mass ratOrdered By: Ayanna Vicente on 04-09-2023 Cholesterol.total/Choles terol in HDL [Mass ratio] 3.3 {ratio} <5.0 [facility] Sodium [Moles/volume] in Ser um or PlasmaOrdered By: Ayanna Vicente on 04-09-2023 Sodium [Moles/Vol] 140 mmol/L 136-145 [facility] Thyroid Stimulating Hormoneo n 04-09-2023 TSH Qn 1.62 m[IU]/L Normal 0.45-5.33 [facility] Comment on above: Order Comment: Reaso n for Exam Other abnormal blood chemistry Reason for Exam Hyperlipidemia PT IS FASTING Reason for Exam Hypothyroidism Result Comment: PERF ORMED BY: [address] [address] PATHOLOGIST OPERATIONS STAFF SPECIALIST SECURITY MATHIEU RASCON M.D. Performed By: #### L IPID, CMP, T4F, TSH3 #### [address] [place] [address] [facility] Thyrotropin [Units/volume] i n Serum or PlasmaOrdered By: Ayanna Vicente on 04-09-2023 TSH Qn 1.62 m[IU]/L 0.45-5.33 [facility] Thyroxine (T4) free [Mass/vo lume] in Serum or PlasmaOrdered By: Ayanna Vicente on 04-09-2023 Free T4 [Mass/Vol] 0.78 ng/dL 0.61-1.12 [facility] Triglyceride [Mass/volume] i n Serum or PlasmaOrdered By: Ayanna Vicente on 04-09-2023 Triglyceride [Mass/Vol] 349 mg/dL 0-149 [facility] Comment on above: TRIG ATP III CLASSIF ICATIONTRIG less than 150 mg/dL NormalTRIG 150-199 mg/dL Borderline highTRIG 200-500 mg/dL High TRIG greater than 500 mg/dL Very highStandard traceable to the Center for Disease Conrtrol and Prevention (CDC) test method. Triiodothyronine (T3) Freeon 04-09-2023 Triiodothyronine (T3) Free 2.71 pg/mL Normal 2.50-3.90 [facility] Comment on above: Order Comment: Reaso n for Exam Hypothyroidism Result Comment: PERF ORMED BY: [place] [address] PATHOLOGIST OPERATIONS STAFF SPECIALIST SECURITY MATHIEU RASCON M.D. Performed By: #### T 3F #### [facility] [address] [place] [address] Triiodothyronine (T3) Free [ Mass/volume] in Serum or PlasmaOrdered By: Ayanna Vicente on 04-09-2023 Free T3 [Mass/Vol] 2.71 pg/mL 2.50-3.90 [facility] Urea nitrogen [Mass/volume] in Serum or PlasmaOrdered By: Ayanna Vicente on 04-09-2023 Urea nitrogen [Mass/Vol] 28 mg/dL 7- [facility] Variant lymphocytes/100 WBC Manual cnt (Bld)Ordered By: Ayanna Vicente on 04-09-2023 Variant lymphocytes/100 WBC (Bld) 1 % 0-12 [facility] WBC Auto (Bld) [#/Vol]Ordere d By: Ayanna Vicente on 04-09-2023 WBC (Bld) [#/Vol] 15.3 10*3/uL 3.8-11.6 [place] [facility] Reportson 02-17-2023 Lab Reports [id number] 0CD:127 Normal [facility] Screenson 02-12-2023 Screens [id number] 0CD:127 Normal [facility] Ambulatory Visit Summaryon 0 02-11-2023 Ambulatory Visit Summary KATHY WASHBURN :1940 Visit Date:02/11/2023 Ambulatory Visit Instructions Your Diagnosis Overactive bladder Mixed incontinence Recurrent UTI Bladder instability Tests Performed Urnls Dip Stick Auto w/o Microscopy POC [id number] Your Care Team Attending Physician - SUSAN RANDOLPH PA-C Primary Care Physician - Ayanna Vicente DO This Is Your Medications List ciprofloxacin (Cipro 500 mg Tab) oxybutynin (oxybutynin 5 mg Tab) Contact prescribing physician if questions or concerns acetaminophen-oxycodon e (acetaminophen-oxycodo ne 325 mg-5 mg oral tablet) aspirin (aspirin 81 mg Oral EC Tab) atorvastatin (Lipitor 20 mg Tab) citalopram (CeleXA 40 mg Tab) ezetimibe (Zetia 10 mg Tab) furosemide (Lasix 20 mg Tab) hydrochlorothiazide-tr iamterene (Maxzide-25 oral tablet) hydroxychloroquine (Plaquenil) insulin glargine (Lantus Solostar Pen 100 units/mL subcutaneous solution) levothyroxine (Synthroid 100 mcg Tab) lisinopril (Zestril 10 mg Tab) metformin (metformin 1000 mg oral tablet, extended release) multivitamin (Vitamin B Complex oral capsule) multivitamin with minerals (Multivitamins and Minerals) pregabalin (Lyrica 225 mg oral capsule) propranolol (Inderal LA 60 mg Cap-ER) zolpidem (Ambien 10 mg Tab) Procedures Performed 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 (1984), Bilateral inguinal hernia repair, Cataract extraction, Colonoscopy, History of hernia repair, History of hernia repair. Discharge Vitals Heart Rate (Peripheral) 70 Blood Pressure 100/67 Height 178 cm Height 70 in Weight 106.9 kg Weight 235.18 lb BMI 33.74 What to do next You Need to Schedule the Following Appointments Follow Up with JAX BECKMAN, ALMA ROSA BATISTA When: Where: [address] [place] [address] Medications What How Much When Why Instructions Changed ciprofloxacin (Cipro 500 mg Tab) See instructions 1 tab po BID x 5d PRN UTI symptoms Pickup at [facility] Changed oxybutynin (oxybutynin 5 mg Tab) See instructions Bladder instability can take 1 tab po up to TID PRN incontinence Pickup at [facility] Unchanged acetaminophen-oxycodon e (acetaminophen-oxycodo ne 325 mg-5 mg oral tablet) By Mouth Every 6 hours Contact prescribing physician if questions or concerns Unchanged aspirin (aspirin 81 mg Oral EC Tab) By Mouth Every day Contact prescribing physician if questions or concerns Unchanged atorvastatin (Lipitor 20 mg Tab) 1 Tablets By Mouth Every day Contact prescribing physician if questions or concerns Unchanged citalopram (CeleXA 40 mg Tab) 1 Tablets By Mouth Every day Contact prescribing physician if questions or concerns Unchanged ezetimibe (Zetia 10 mg Tab) 1 Tablets By Mouth Every day Contact prescribing physician if questions or concerns Unchanged furosemide (Lasix 20 mg Tab) 1 Tablets By Mouth Every day Contact prescribing physician if questions or concerns Unchanged hydrochlorothiazide-tr iamterene (Maxzide-25 oral tablet) 0.5 Tablets By Mouth Every day Contact prescribing physician if questions or concerns Unchanged hydroxychloroquine (Plaquenil) 400 Milligram By Mouth Every day Contact prescribing physician if questions or concerns Unchanged insulin glargine (Lantus Solostar Pen 100 units/ mL subcutaneous solution) Subcutaneous Every day Contact prescribing physician if questions or concerns Unchanged levothyroxine (Synthroid 100 mcg Tab) 1 Tablets By Mouth Every day Contact prescribing physician if questions or concerns Unchanged lisinopril (Zestril 10 mg Tab) 1 Tablets By Mouth Every day Contact prescribing physician if questions or concerns Unchanged metformin (metformin 1000 mg oral tablet, extended release) 1 Tablets By Mouth 2 times a day Contact prescribing physician if questions or concerns Unchanged multivitamin (Vitamin B Complex oral capsule) By Mouth Every day Contact prescribing physician if questions or concerns Unchanged multivitamin with minerals (Multivitamins and Minerals) Contact prescribing physician if questions or concerns Unchanged pregabalin (Lyrica 225 mg oral capsule) 1 Capsules By Mouth 2 times a day Contact prescribing physician if questions or concerns Unchanged propranolol (Inderal LA 60 mg Cap-ER) 1 Capsules By Mouth Every day Contact prescribing physician if questions or concerns Unchanged zolpidem (Ambien 10 mg Tab) 1 Tablets By Mouth Once a day (at bedtime) as needed for for sleep Contact prescribing physician if questions or concerns Pharmacy Information [facility]: [address], [place] [phone] Test Results Urnls Dip Stick Auto (more content not included)... Normal [facility] Patient Educationon 02-12-20 Patient Education Obstetrics and Gynecology Overactive Bladder, Adult Overactive bladder is a condition in which a person has a sudden and frequent need to urinate. A person might also leak urine if he or she cannot get to the bathroom fast enough (urinary incontinence). Sometimes, symptoms can interfere with work or social activities. What are the causes? Overactive bladder is associated with poor nerve signals between your bladder and your brain. Your bladder may get the signal to empty before it is full. You may also have very sensitive muscles that make your bladder squeeze too soon. This condition may also be caused by other factors, such as: ? Medical conditions: ? Urinary tract infection. ? Infection of nearby tissues. ? Prostate enlargement. ? Bladder stones, inflammation, or tumors. ? Diabetes. ? Muscle or nerve weakness, especially from these conditions: ? A spinal cord injury. ? Stroke. ? Multiple sclerosis. ? Parkinson's disease. ? Other causes: ? Surgery on the uterus or urethra. ? Drinking too much caffeine or alcohol. ? Certain medicines, especially those that eliminate extra fluid in the body (diuretics). ? Constipation. What increases the risk? You may be at greater risk for overactive bladder if you: ? Are an older adult. ? Smoke. ? Are going through menopause. ? Have prostate problems. ? Have a neurological disease, such as stroke, dementia, Parkinson's disease, or multiple sclerosis (MS). ? Eat or drink alcohol, spicy food, caffeine, and other things that irritate the bladder. ? Are overweight or obese. What are the signs or symptoms? Symptoms of this condition include a sudden, strong urge to urinate. Other symptoms include: ? Leaking urine. ? Urinating 8 or more times a day. ? Waking up to urinate 2 or more times overnight. How is this diagnosed? This condition may be diagnosed based on: ? Your symptoms and medical history. ? A physical exam. ? Blood or urine tests to check for possible causes, such as infection. You may also need to see a health care provider who specializes in urinary tract problems. This is called a urologist. How is this treated? Treatment for overactive bladder depends on the cause of your condition and whether it is mild or severe. Treatment may include: ? Bladder training, such as: ? Learning to control the urge to urinate by following a schedule to urinate at regular intervals. ? Doing Kegel exercises to strengthen the pelvic floor muscles that support your bladder. ? Special devices, such as: ? Biofeedback. This uses sensors to help you become aware of your body's signals. ? Electrical stimulation. This uses electrodes placed inside the body (implanted) or outside the body. These electrodes send gentle pulses of electricity to strengthen the nerves or muscles that control the bladder. ? Women may use a plastic device, called a pessary, that fits into the vagina and supports the bladder. ? Medicines, such as: ? Antibiotics to treat bladder infection. ? Antispasmodics to stop the bladder from releasing urine at the wrong time. ? Tricyclic antidepressants to relax bladder muscles. ? Injections of botulinum toxin type A directly into the bladder tissue to relax bladder muscles. ? Surgery, such as: ? A device may be implanted to help manage the nerve signals that control urination. ? An electrode may be implanted to stimulate electrical signals in the bladder. ? A procedure may be done to change the shape of the bladder. This is done only in very severe cases. Follow these instructions at home: Eating and drinking ? Make diet or lifestyle changes recommended by your health care provider. These may include: ? Drinking fluids throughout the day and not only with meals. ? Cutting down on caffeine or alcohol. ? Eating a healthy and balanced diet to prevent constipation. This may include: ? Choosing foods that are high in fiber, such as beans, whole grains, and fresh fruits and vegetables. ? Limiting foods that are high in fat and processed sugars, such as fried and sweet foods. Lifestyle ? Lose weight if needed. ? Do not use any products that contain nicotine or tobacco. These include cigarettes, chewing tobacco, and vaping devices, such as e-cigarettes. If you need help quitting, ask your health care provider. General instructions ? Take chji-efg-dwczdvc and prescription medicines only as told by your health care provider. ? If you were prescribed an antibiotic medicine, take it as told by your health care provider. Do not stop taking the antibiotic even if you start to feel better. ? Use any implants or pessary as told by your health care provider. ? If needed, wear pads to absorb urine leakage. ? Keep a log to track how much and when you drink, and when you need to urinate. This will help your health care provider monitor yo (more content not included)... Normal [facility] Urology Office/Clinic Noteon 02-11-2023 Urology Office/Clinic Note HPI Staff Pt is here today due to recurrent UTI's. 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 Last seen in our office 09/12/21 by JINNY due to Overactive Bladder & Mixed Incontinence. S/P Botox 100 units *Started on Oxybutynin 5mg QD, then could titrate up to TID, therapy at that time. *only taking oxybutynin when she goes out maybe 1x a week or less. does want refills* Pt was to call with update. Nothing in chart. C&S 01/13/22- *25k Enterococcus faecalis 09/30/22- BUN 33 Cr 1.25 Dysuria: has had 3 or more uti's since she was in last states she just calls her pcp and he sends cipro which helps, patient is wanting to get a refill on cipro to keep at home states Dr. Redding would always give her one to keep on hand Incomplete bladder emptying: feels empty but will urinate and 5 mintues later have the urge to uriante agian pvr today was 0ml Hematuria: no Frequency: no Urgency: severe Nocturia: no Stream: good stream Leaking: severe all the time Post void dripping: no Wearing pads/ Depends: wears liners changes every 2 hour Urge incontinence: yes Stress incontinence: yes Incontinence without Sensory Awareness: no Abdominal pain: no Flank pain: no Sexual complaints: no History of Present Illness staff HPI reviewed and agree. Review of Systems PHQ Score Initial Depression Screen Score: 0 no fever, chills, malaise, myalgia. no rash/lesions. no chest pain, palpitations, or SOB. no abdominal pain, nausea, vomiting. no unilateral calf swelling, redness, pain Physical Exam Vitals & Measurements HR: 70(Peripheral) BP: 100/67 HT: 70 in HT: 178 cm WT: 106.9 kg WT: 235.18 lb BMI: 33.74 General: nontoxic, NAD Mouth: moist mucosa Lungs: normal respiratory effort Cardio: regular rate, good distal perfusion Abdomen: nondistended, no suprapubic distention or tenderness, no CVA tenderness Neurologic: Grossly normal Skin: No rashes or suspicious lesions Assessment/Plan 1. Overactive bladder (N32.81: Overactive bladder) failed myrbetriq previously. no improvement sp UD December 2020. S/p botox 100 units 08/30/21. States today symptoms only improved for a few weeks or so. Wasn't very impressed w improvement. does not wish to repeat Botox. Started on Oxybutynin 5mg daily 09/12/21. Was told she could titrate up. Pt never tried that, wasn't sure how to use it. Reports she is only taking Oxybutynin when she goes out, maybe 1x/week or less. Helps but not completely resolves the incontinence and often wears off before she finishes her activities. -Titrate up to TID. can even try 2 at once to see if this helps w better temporary control for things like oriental orthodox and parties. new script sent -call if dosage change does not improve sxs. pt very pleased w the new plan. 2. Mixed incontinence (N39.46: Mixed incontinence) Wears a liner, changes every 2 hours bladder & bowel questionnaire 19 - severe See #1 3. Recurrent UTI (N39.0: Urinary tract infection, site not specified) pt states she has had 3 or more UTIs since last appointment. states she just calls her pcp and he sends cipro which does help, patient is wanting to get a refill on cipro to keep at home states Dr. Redding would always give her one to keep on hand risks/benefits/side effects discussed. UA today neg for infection. pt asx. -Cipro rx sent, advised pt to start taking when sxs arise. take x 5 days -call if sxs don't improve Follow-up With When Contact Information JAX BECKMAN, SUSAN Miller, URL [address] [place] [address] Additional Instructions: 1 yr Patient Education Overactive Bladder, Adult Documentation recorded by the donna Leone accurately reflects the services(s) I performed and decisions made by me. Authenticated by Susan Randolph PA-C on 02/11/2023 12:07:55. IKerline, personally scribed for Susan Randolph PA-C on 02/11/2023 12:04:35. . 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 (1984), Bilateral inguinal hernia repair, Cataract extraction, Colonoscopy, History of hernia repair, History of hernia repair. Medications acetaminophen-oxycodon e 325 mg-5 (more content not included)... Normal [facility] Comment on above: Result Comment: Elec tronically Signed By: SUSAN RANDOLPH PA-C\.br\Date and Time Signed: 02/11/23 12:09 EDT\.br\Electronically Co-Signed By: Kerline Leone.br\Date and Time Co-Signed: 02/11/23 12:04 EDT CBC W Auto Differential pane l (Bld)on 02-07-2023 Basophils (Bld) [#/Vol] 0.00 10*3/uL Normal <0.11 [facility] Comment on above: Order Comment: Speci men Type: BLOOD SPECIMEN Ordering Facility: [facility] Address: [address] [place] [address] Performed By: #### 5 7021-8 #### [facility] CLIA [id number] [address] [place] [address] LAB CLIA [id number] [address] [place] [address] [place] Basophils/100 WBC (Bld) 0.0 % Normal [facility] Comment on above: Order Comment: Speci men Type: BLOOD SPECIMEN Ordering Facility: [facility] Address: [address] [place] [address] Performed By: #### 5 7021-8 #### [facility] CLIA [id number] [address] [place] [address] LAB CLIA [id number] [address] [place] [address] [place] Differential cell count method Nom (Bld) Manual Normal [facility] Comment on above: Order Comment: Speci men Type: BLOOD SPECIMEN Ordering Facility: [facility] Address: [address] [place] [address] Performed By: #### 5 7021-8 #### [facility] CLIA [id number] [address] [place] [address] LAB CLIA [id number] [address] [place] [address] [place] Eosinophils (Bld) [#/Vol] 0.19 10*3/uL Normal <0.46 [facility] Comment on above: Order Comment: Speci men Type: BLOOD SPECIMEN Ordering Facility: [facility] Address: [address] [place] [address] Performed By: #### 5 7021-8 #### [facility] CLIA [id number] [address] [place] [address] LAB CLIA [id number] [address] [place] [address] [place] Eosinophils/100 WBC (Bld) 1.0 % Normal [facility] Comment on above: Order Comment: Speci men Type: BLOOD SPECIMEN Ordering Facility: [facility] Address: [address] [place] [address] Performed By: #### 5 7021-8 #### [facility] CLIA [id number] [address] [place] [address] LAB CLIA [id number] [address] [place] [address] [place] Erythrocyte distribution width (RBC) [Ratio] 13.5 % Normal 11.5-15.0 [facility] Comment on above: Order Comment: Speci men Type: BLOOD SPECIMEN Ordering Facility: [facility] Address: [address] [place], [place] [address] Performed By: #### 5 7021-8 #### [facility] CLIA [id number] [address] [place] [address] LAB CLIA [id number] [address] [place] [address] [place] Hematocrit (Bld) [Volume fraction] 37.0 % Normal 36.0-46.0 [facility] Comment on above: Order Comment: Speci men Type: BLOOD SPECIMEN Ordering Facility: [facility] Address: [address] [place], [place] [address] Performed By: #### 5 7021-8 #### [facility] CLIA [id number] [address] [place] [address] LAB CLIA [id number] [address] [place] [address] [place] Hemoglobin (Bld) [Mass/Vol] 12.1 g/dL Normal 11.5-15.5 [facility] Comment on above: Order Comment: Speci men Type: BLOOD SPECIMEN Ordering Facility: [facility] Address: [address] Performed By: #### 5 7021-8 #### [facility] CLIA [id number] [address] [place] [address] LAB CLIA [id number] [address] [place] [address] [place] Lymphocytes (Bld) [#/Vol] 12.31 10*3/uL High 1.00-4.00 [facility] Comment on above: Order Comment: Speci men Type: BLOOD SPECIMEN Ordering Facility: [facility] Address: [address] Performed By: #### 5 7021-8 #### [facility] CLIA [id number] [address] [place] [address] LAB CLIA [id number] [address] [place] [address] [place] Lymphocytes/100 WBC (Bld) 66.0 % Normal [facility] Comment on above: Order Comment: Speci men Type: BLOOD SPECIMEN Ordering Facility: [facility] Address: [address] [place] [address] Performed By: #### 5 7021-8 #### [facility] CLIA [id number] [address] [place] [address] LAB CLIA [id number] [address] [place] [address] [place] MCH (RBC) [Entitic mass] 29.4 pg Normal 26.0-34.0 [facility] Comment on above: Order Comment: Speci men Type: BLOOD SPECIMEN Ordering Facility: [facility] Address: [address] [place] [address] Performed By: #### 5 7021-8 #### [facility] CLIA [id number] [address] [place] [address] LAB CLIA [id number] [address] [place] [address] [place] MCHC (RBC) [Mass/Vol] 32.7 g/dL Normal 30.5-36.0 [facility] Comment on above: Order Comment: Speci men Type: BLOOD SPECIMEN Ordering Facility: [facility] Address: [address] [place] [address] Performed By: #### 5 7021-8 #### [facility] CLIA [id number] [address] [place] [address] LAB CLIA [id number] [address] [place] [address] [place] MCV (RBC) [Entitic vol] 90.0 fL Normal 80.0-100.0 [facility] Comment on above: Order Comment: Speci men Type: BLOOD SPECIMEN Ordering Facility: [facility] Address: [address] [place] [address] Performed By: #### 5 7021-8 #### [facility] CLIA [id number] [address] [place] [address] LAB CLIA [id number] [address] [place] [address] [place] Monocytes (Bld) [#/Vol] 0.56 10*3/uL Normal <0.87 [facility] Comment on above: Order Comment: Speci men Type: BLOOD SPECIMEN Ordering Facility: [facility] Address: [address] [place], [place] [address] Performed By: #### 5 7021-8 #### [facility] CLIA [id number] [address] [place] [address] LAB CLIA [id number] [address] [place] [address] [place] Monocytes/100 WBC (Bld) 3.0 % Normal [facility] Comment on above: Order Comment: Speci men Type: BLOOD SPECIMEN Ordering Facility: [facility] Address: [address] Performed By: #### 5 7021-8 #### [facility] CLIA [id number] [address] [place] [address] LAB CLIA [id number] [address] [place] [address] [place] Neutrophils (Bld) [#/Vol] 5.60 10*3/uL Normal 1.45-7.50 [facility] Comment on above: Order Comment: Speci men Type: BLOOD SPECIMEN Ordering Facility: [facility] Address: [address] Performed By: #### 5 7021-8 #### [facility] CLIA [id number] [address] [place] [address] LAB CLIA [id number] [address] [place] [address] [place] Neutrophils/100 WBC (Bld) 30.0 % Normal [facility] Comment on above: Order Comment: Speci men Type: BLOOD SPECIMEN Ordering Facility: [facility] Address: [address] [place] [address] Performed By: #### 5 7021-8 #### [facility] CLIA [id number] [address] [place] [address] LAB CLIA [id number] [address] [place] [address] [place] Nucleated RBC (Bld) [#/Vol] 10*3/uL Normal <0.01 [facility] Comment on above: Order Comment: Speci men Type: BLOOD SPECIMEN Ordering Facility: [facility] Address: [address] [place] [address] Performed By: #### 5 7021-8 #### [facility] CLIA [id number] [address] [place] [address] LAB CLIA [id number] [address] [place] [address] [place] Nucleated RBC/100 WBC (Bld) [Ratio] 0.0 /100 WBC Normal [facility] Comment on above: Order Comment: Speci men Type: BLOOD SPECIMEN Ordering Facility: [facility] Address: [address] [place] [address] Performed By: #### 5 7021-8 #### [facility] CLIA [id number] [address] [place] [address] LAB CLIA [id number] [address] [place] [address] [place] Ovalocytes LM Ql (Bld) Few Normal Cl [facility] Comment on above: Order Comment: Speci men Type: BLOOD SPECIMEN Ordering Facility: [facility] Address: [address] [place] [address] Performed By: #### 5 7021-8 #### [facility] CLIA [id number] [address] [place] [address] LAB CLIA [id number] [address] [place] [address] [place] Platelet mean volume (Bld) [Entitic vol] 10.3 fL Normal 9.0-12.7 [facility] Comment on above: Order Comment: Speci men Type: BLOOD SPECIMEN Ordering Facility: [facility] Address: [address] [place] [address] Performed By: #### 5 7021-8 #### [facility] CLIA [id number] [address] [place] [address] LAB CLIA [id number] [address] [place] [address] [place] Platelets (Bld) [#/Vol] 240 10*3/uL Normal 150-400 [facility] Comment on above: Order Comment: Speci men Type: BLOOD SPECIMEN Ordering Facility: [facility] Address: [address] [place] [address] Performed By: #### 5 7021-8 #### [facility] CLIA [id number] [address] [place] [address] LAB CLIA [id number] [address] [place] [address] [place] Platelets Estimate (Bld) [#/Vol] Adequate Normal [facility] Comment on above: Order Comment: Speci men Type: BLOOD SPECIMEN Ordering Facility: [facility] Address: [address] [place], [place] [address] Performed By: #### 5 7021-8 #### [facility] CLIA [id number] [address] [place] [address] LAB CLIA [id number] [address] [place] [address] [place] RBC (Bld) [#/Vol] 4.11 10*6/uL Normal 3.90-5.20 [facility] Comment on above: Order Comment: Speci men Type: BLOOD SPECIMEN Ordering Facility: [facility] Address: [address] [place] [address] Performed By: #### 5 7021-8 #### [facility] CLIA [id number] [address] [place] [address] LAB CLIA [id number] [address] [place] [address] [place] RED CELL MORPH Reviewed: see result s of individual morphologies Normal [facility] Comment on above: Order Comment: Speci men Type: BLOOD SPECIMEN Ordering Facility: [facility] Address: [address] [id number] Performed By: #### 5 7021-8 #### [facility] CLIA [id number] [address] [place], [place] [address] [facility] CLIA [id number] [address] [place] [address] [place] WBC (Bld) [#/Vol] 18.65 10*3/uL High 3.70-11.00 [facility] Comment on above: Order Comment: Speci men Type: BLOOD SPECIMEN Ordering Facility: [facility] Address: [place] Performed By: #### 5 7021-8 #### [facility] CLIA [id number] [address] [place] [address] LAB CLIA [id number] [address] [place] [address] [place] CNOVSPon 02-07-2023 CNOVSP Visit (SP) Office ([place]) KATHY WASHBURN ([id number]) 1940 F Date Time Provider Department 02/07/23 1:30 PM FRANCINE LARES During your visit today, we recorded the following information about you: Temperature Pulse Respiration Blood pressure 97.3 degrees 74/minute 20/minute 122/72 Weight Height 108 kg 1.778 m Francine Lares MD 02/07/2023 1:47 PM Signed PATIENT NAME: Kathy Briggs Maddison CLINIC NO.: [id number] ATTENDING PHYSICIAN: Francine Lares MD DATE OF SERVICE: February 07, 2023 Some of the elements of this note have been copied from my previous progress note dated 07/19/2022. All the information has been reviewed carefully. Dear Dr. Francine Lares here is an update on a follow up visit on female Kathy Washburn at the clinic February 07, 2023 Diagnosis: Binet Stage A CLL Treatment History: HPI: Kathy Washburn is a 82 year old year old female here for follow up. Doing very well and denies any fevers and or chills. The axillary pain has resolved,. PAST MEDICAL HISTORY Diagnosis Date Depression Diabetes mellitus (HCC) Hypertension Hypothyroidism Inflammatory bowel diseases (IBD) Leukocytosis Mixed hyperlipidemia Neuropathy Rheumatism, unspecified Social History Tobacco Use Smoking status: Former Packs/day: 1.50 Years: 20.00 Total pack years: 30.00 Types: Cigarettes Quit date: 07/14/1999 Years since quittin.5 Smokeless tobacco: Never Vaping Use Vaping Use: Never used Substance Use Topics Alcohol use: Not Currently Drug use: Never FAMILY HISTORY Problem Relation Age of Onset Cancer Mother Heart disease Father Hypertension Father Migraines Maternal Grandmother Heart disease Paternal Grandmother Heart disease Paternal Grandfather Past medical, social and family history reviewed without any changes. REVIEW OF SYSTEMS GENERAL: No weight loss, malaise or fevers. No night sweats. HEENT: Negative for headaches, No changes in hearing or vision, no nose bleeds or other nasal problems. RESPIRATORY: Negative for cough, wheezing and shortness of breath CARDIOVASCULAR: Negative for chest pain, leg swelling and palpitations GI: Negative for abdominal discomfort, blood in stools or black stools and change in bowel habits : Negative for dysuria, frequency and incontinence MUSCULOSKELETAL: Negative for joint pain or swelling, back pain, and muscle pain. SKIN: Negative for lesions, rash, and itching. HEMATOLOGY/LYMPHOLOGY Negative for prolonged bleeding, bruising easily, and swollen nodes. NEURO: Negative for numbness or tingling of hands/feet. No weakness. PHYSICAL EXAMINATION: BP 122/72 Pulse 74 Temp (Src) 97.3 (Temporal) Resp 20 Ht 5' 10 (1.78m) Wt 238 lb (108.0kg) SpO2 93% BMI 34.15 kg/(m2). Wt 102.7 kg (226 lb 6.4 oz) BMI 32.49 kg/m2 Last 3 Encounter Wt Readings: Date: Wt: 04/18/2022 102.7 kg (226 lb 6.4 oz) 04/04/2022 103.8 kg (228 lb 12.8 oz) 08/01/2011 109.3 kg (241 lb) General appearance:ECOG PERFORMANCE STATUS: 0- Fully active, able to carry on all pre-disease performance w/o restriction. Patient in NAD. Skin: Skin color, texture, turgor normal. No rashes or lesions. Eyes: Anicteric sclera. Pupils are equally round and reactive to light. Extraocular movements are intact. Lymph Nodes: No cervical, supraclavicular, L axillary node 1-2 cm and no other adenopathy Oropharynx: Lips, mucosa, and tongue normal. Back: No pain to percussion. Negative SLR test Lungs clear to auscultation, No wheezing or rhonchi Heart: RRR without murmur, gallop, or rubs. Abdomen soft, non-tender. No masses, organomegaly Extremities: No deformities. No edema Neuro: Gait and speech normal. Reflexes normal and symmetric. Muscular strength intact. Sensation grossly intact. Rectal: Deferred : Deferred LABS: Glucose (mg/dL) Date Value 07/19/2022 129 Potassium (mmol/L) Date Value 07/19/2022 5.0 Sodium (mmol/L) Date Value 07/19/2022 138 Chloride (mmol/L) Date Value 07/19/2022 102 CO2 (mmol/L) Date Value 07/19/2022 30 Creatinine (mg/dL) Date Value 07/19/2022 0.86 BUN (mg/dL) Date Value 07/19/2022 23 Anion Gap (mmol/L) Date Value 07/19/2022 6 Calcium, Total (mg/dL) Date Value 07/19/2022 9.5 Protein, Total (g/dL) Date Value 07/19/2022 6.8 Albumin (g/dL) Date Value 07/19/2022 4.4 Bilirubin, Total (mg/dL) Date Value 07/19/2022 0.3 Alkaline Phosphatase (U/L) Date Value 07/19/2022 115 AST (U/L) Date Value 07/19/2022 22 ALT (U/L) Date Value 07/19/2022 20 WBC Date Value Ref Range Status 02/07/2023 18.65 (H) 3.70 - 11.00 k/uL Preliminary RBC Date Value Ref Range Status 02/07/2023 4.11 3.90 - 5.20 m/uL Preliminary Hemoglobin Date Value Ref Range Status 02/07/2023 12.1 11.5 - 15.5 g/dL Preliminary Hematocrit Date Value Ref Range Status 02/07/2023 (more content not included)... Normal [facility] Comprehensive metabolic 2000 panelon 02-07-2023 Albumin [Mass/Vol] 4.4 g/dL Normal 3.9-4.9 [facility] Comment on above: Order Comment: Speci men Type: BLOOD SPECIMEN Ordering Facility: [facility] Address: [address] [address] Performed By: #### 2 4323-8 #### [facility] CLIA [id number] [address] [place] [address] ALP [Catalytic activity/Vol] 119 U/L Normal 34-123 [facility] Comment on above: Order Comment: Speci men Type: BLOOD SPECIMEN Ordering Facility: [facility] Address: [address] [address] Performed By: #### 2 4323-8 #### [facility] CLIA [id number] [address] [place] [address] ALT [Catalytic activity/Vol] 21 U/L Normal 7-38 [facility] Comment on above: Order Comment: Speci men Type: BLOOD SPECIMEN Ordering Facility: [facility] Address: [address] [address] Performed By: #### 2 4323-8 #### [facility] CLIA [id number] [address] [place] [address] Anion gap [Moles/Vol] 11 mmol/L Normal 9-18 [facility] Comment on above: Order Comment: Speci men Type: BLOOD SPECIMEN Ordering Facility: [facility] Address: [address] [address] Performed By: #### 2 4323-8 #### [facility] CLIA [id number] [address] [place] [address] AST [Catalytic activity/Vol] 21 U/L Normal 13-35 [facility] Comment on above: Order Comment: Speci men Type: BLOOD SPECIMEN Ordering Facility: [facility] Address: [address] [place] [address] Performed By: #### 2 4323-8 #### [facility] CLIA [id number] [address] [place] [address] Bilirubin [Mass/Vol] 0.2 mg/dL Normal 0.2-1.3 [facility] Comment on above: Order Comment: Speci men Type: BLOOD SPECIMEN Ordering Facility: [facility] Address: [address] [place] [address] Performed By: #### 2 4323-8 #### [facility] CLIA [id number] [address] [place] [address] Calcium [Mass/Vol] 9.2 mg/dL Normal 8.5-10.2 [facility] Comment on above: Order Comment: Speci men Type: BLOOD SPECIMEN Ordering Facility: [facility] Address: [address] [place] [address] Performed By: #### 2 4323-8 #### [facility] CLIA [id number] [address] [place] [address] Chloride [Moles/Vol] 101 mmol/L Normal 97-105 [facility] Comment on above: Order Comment: Speci men Type: BLOOD SPECIMEN Ordering Facility: [facility] Address: [address] [place] [address] Performed By: #### 2 4323-8 #### [facility] CLIA [id number] [address] [place] [address] CO2 [Moles/Vol] 26 mmol/L Normal 22-30 [facility] Comment on above: Order Comment: Speci men Type: BLOOD SPECIMEN Ordering Facility: [facility] Address: [address] [id number] Performed By: #### 2 4323-8 #### [facility] CLIA [id number] [address] [place] [address] Creatinine [Mass/Vol] 1.16 mg/dL High 0.58-0.96 [facility] Comment on above: Order Comment: Speci men Type: BLOOD SPECIMEN Ordering Facility: [facility] Address: [address] [address] Performed By: #### 2 4323-8 #### [facility] CLIA [id number] [address] [place] [address] ESTIMATED GLOMERULAR FILTRATION RATE 48 mL/min/1.73m??? Low >=60 [facility] Comment on above: Order Comment: Speci men Type: BLOOD SPECIMEN Ordering Facility: [facility] Address: [address] [place] [address] Result Comment: Aimee mated Glomerular Filtration Rate (eGFR) is calculated using the 2020 CKD-EPI creatinine equation. This equation utilizes serum creatinine, sex, and age as parameters. The creatinine assay has traceable calibration to isotope dilution-mass spectrometry. Refer to KDIGO guidelines for clinical interpretation. In patients with unstable renal function, e.g. those with acute kidney injury, the eGFR may not accurately reflect actual GFR. Performed By: #### 2 4323-8 #### [facility] CLIA [id number] [address] [place] [address] Glucose [Mass/Vol] 117 mg/dL High 74-99 [facility] Comment on above: Order Comment: Speci men Type: BLOOD SPECIMEN Ordering Facility: [facility] Address: [address] [address] Result Comment: The [place] Diabetes Association (ADA) provides guidance for cutoff values for fasting glucose and random glucose. The ADA defines fasting as no caloric intake for at least 8 hours. Fasting plasma glucose results between 100 to 125 mg/dL indicate increased risk for diabetes (prediabetes). Fasting plasma glucose results greater than or equal to 126 mg/dL meet the criteria for diagnosis of diabetes. In the absence of unequivocal hyperglycemia, results should be confirmed by repeat testing. In a patient with classic symptoms of hyperglycemia or hyperglycemic crisis, random plasma glucose results greater than or equal to 200 mg/dL meet the criteria for diagnosis of diabetes. Reference: Standards of Medical Care in Diabetes 2016, [place] Diabetes Association. Diabetes Care. 2016.39(Suppl 1). Performed By: #### 2 4323-8 #### [facility] CLIA [id number] [address] [place] [address] Potassium [Moles/Vol] 4.4 mmol/L Normal 3.7-5.1 [facility] Comment on above: Order Comment: Speci men Type: BLOOD SPECIMEN Ordering Facility: [facility] Address: [address] [address] Performed By: #### 2 4323-8 #### [facility] CLIA [id number] [address] [place] [address] Protein [Mass/Vol] 6.9 g/dL Normal 6.3-8.0 [facility] Comment on above: Order Comment: Speci men Type: BLOOD SPECIMEN Ordering Facility: [facility] Address: [address] [address] Performed By: #### 2 4323-8 #### [facility] CLIA [id number] [address] [place] [address] Sodium [Moles/Vol] 138 mmol/L Normal 136-144 [facility] Comment on above: Order Comment: Speci men Type: BLOOD SPECIMEN Ordering Facility: [facility] Address: [address] [address] Performed By: #### 2 4323-8 #### [facility] CLIA [id number] [address] [place] [address] Urea nitrogen [Mass/Vol] 35 mg/dL High 7-21 [facility] Comment on above: Order Comment: Speci men Type: BLOOD SPECIMEN Ordering Facility: [facility] Address: [address] [address] Performed By: #### 2 4323-8 #### [facility] CLIA [id number] [address] [place] [address] A1C with Estimated Average G kenny 09-30-2022 Glucose [Mass/Vol] 203 mg/dL Normal [facility] Comment on above: Order Comment: Reaso n for Exam Diabetes type 2, uncontrolled Result Comment: PERF ORMED BY: [facility] [address] [place] [address] PATHOLOGIST OPERATIONS STAFF SPECIALIST SECURITY MATHIEU RASCON M.D. Performed By: #### A 1C [facility] eA #### [facility] [address] [place] [address] HbA1c (Bld) [Mass fraction] 8.7 % High 4.3-5.6 [facility] Comment on above: Order Comment: Reaso n for Exam Diabetes type 2, uncontrolled Result Comment: Incr eased risk for diabetes: 5.7 - 6.4 diabetes: >6.4 glycemic control for adults with diabetes: <7.0 Performed By: #### A 1C [facility] eA #### [facility] [address] Alanine aminotransferase [En zymatic activity/volume] in Serum or PlasmaOrdered By: Ayanna Vicente on 09-30-2022 ALT [Catalytic activity/Vol] 25 U/L 7-52 [facility] Albumin [Mass/volume] in Ser um or Plasma by Bromocresol green (BCG) dye binding methoOrdered By: Ayanna Vicente on 09-30-2022 Albumin BCG dye [Mass/Vol] 4.3 g/dL 3.5-5.7 [facility] Alkaline phosphatase [Enzyma tic activity/volume] in Serum or PlasmaOrdered By: Ayanna Vicente on 09-30-2022 ALP [Catalytic activity/Vol] 97 U/L 34-104 [facility] Anisocytosis LM Ql (Bld)Orde red By: Ayanna Vicente on 09-30-2022 Anisocytosis Ql (Bld) Slight Fir [facility] Aspartate aminotransferase [ Enzymatic activity/volume] in Serum or PlasmaOrdered By: Ayanna Vicente on 09-30-2022 AST [Catalytic activity/Vol] 22 U/L 13-39 [facility] Basophils Auto (Bld) [#/Vol] Ordered By: Ayanna Vicente on 09-30-2022 Basophils (Bld) [#/Vol] 0.0 10*3/uL 0.0-0.2 [facility] Basophils/100 WBC Auto (Bld) Ordered By: Ayanna Vicente on 09-30-2022 Basophils/100 WBC (Bld) 0.3 % . [facility] Bilirubin.total [Mass/volume ] in Serum or PlasmaOrdered By: Ayanna Vicente on 09-30-2022 Bilirubin [Mass/Vol] 0.3 mg/dL 0.3-1.0 [facility] Calcium [Mass/volume] in Ser um or PlasmaOrdered By: Ayanna Vicente on 09-30-2022 Calcium [Mass/Vol] 9.3 mg/dL 8.6-10.3 [facility] Carbon dioxide, total [Moles /volume] in Serum or PlasmaOrdered By: Ayanna Vicente on 09-30-2022 CO2 [Moles/Vol] 30.4 mmol/L 21.0-31.0 [facility] Chloride [Moles/volume] in S ebony or PlasmaOrdered By: Ayanna Vicente on 09-30-2022 Chloride [Moles/Vol] 104 mmol/L 98-107 [facility] Cholesterol [Mass/volume] in Serum or PlasmaOrdered By: Ayanna Vicente on 09-30-2022 Cholesterol [Mass/Vol] 117 mg/dL 140-200 [facility] Comment on above: Chol less than 200 m g/dl low riskChol 201-239 mg/dl borderline riskChol 240 mg/dl and greater high risk Cholesterol in LDL Calc [Mas s/Vol]Ordered By: Ayanna Vicente on 09-30-2022 Cholesterol in LDL [Mass/Vol] 35 mg/dL 0-100 [facility] Comment on above: LDL ATP III CLASSIFI CATIONLDL less than 100 mg/dL OptimalLDL 100-129 mg/dL Near or above optimalLDL 130-159 mg/dL Borderline highLDL 160-189 mg/dL HighLDL greater than 189 mg/dL Very high Cholesterol in VLDL Calc [Ma ss/Vol]Ordered By: Ayanna Vicente on 09-30-2022 Cholesterol in VLDL [Mass/Vol] 43 mg/dL [facility] Comprehensive Metabolic Pane cynthia 09-30-2022 Albumin [Mass/Vol] 4.3 g/dL Normal 3.5-5.7 [facility] Comment on above: Order Comment: Reaso n for Exam Other abnormal blood chemistry Reason for Exam Hyperlipidemia PT IS FASTING Reason for Exam Hypothyroidism Performed By: #### L IPID, CMP, T4F, TSH3 #### [facility] [address] Albumin/Globulin [Mass ratio] 1.8 {ratio} Normal [facility] Comment on above: Order Comment: Reaso n for Exam Other abnormal blood chemistry Reason for Exam Hyperlipidemia PT IS FASTING Reason for Exam Hypothyroidism Performed By: #### L IPID, CMP, T4F, TSH3 #### [facility] [address] [place] [id number] [facility] ALP [Catalytic activity/Vol] 97 U/L Normal 34-104 [facility] Comment on above: Order Comment: Reaso n for Exam Other abnormal blood chemistry Reason for Exam Hyperlipidemia PT IS FASTING Reason for Exam Hypothyroidism Performed By: #### L IPID, CMP, T4F, TSH3 #### [facility] [address] [place] [address] [place] ALT [Catalytic activity/Vol] 25 U/L Normal 7-52 [facility] Comment on above: Order Comment: Reaso n for Exam Other abnormal blood chemistry Reason for Exam Hyperlipidemia PT IS FASTING Reason for Exam Hypothyroidism Performed By: #### L IPID, CMP, T4F, TSH3 #### [facility] [address] [id number] [place] Anion gap [Moles/Vol] 12.1 mmol/L Normal 6.0-15.0 [facility] Comment on above: Order Comment: Reaso n for Exam Other abnormal blood chemistry Reason for Exam Hyperlipidemia PT IS FASTING Reason for Exam Hypothyroidism Performed By: #### L IPID, CMP, T4F, TSH3 #### [facility] [address] [id number] [place] AST [Catalytic activity/Vol] 22 U/L Normal 13-39 [facility] Comment on above: Order Comment: Reaso n for Exam Other abnormal blood chemistry Reason for Exam Hyperlipidemia PT IS FASTING Reason for Exam Hypothyroidism Performed By: #### L IPID, CMP, T4F, TSH3 #### [facility] [address] Bilirubin [Mass/Vol] 0.3 mg/dL Normal 0.3-1.0 [facility] Comment on above: Order Comment: Reaso n for Exam Other abnormal blood chemistry Reason for Exam Hyperlipidemia PT IS FASTING Reason for Exam Hypothyroidism Performed By: #### L IPID, CMP, T4F, TSH3 #### [facility] [address] Calcium [Mass/Vol] 9.3 mg/dL Normal 8.6-10.3 [facility] Comment on above: Order Comment: Reaso n for Exam Other abnormal blood chemistry Reason for Exam Hyperlipidemia PT IS FASTING Reason for Exam Hypothyroidism Performed By: #### L IPID, CMP, T4F, TSH3 #### [facility] [address] [place] [address] [place] Chloride [Moles/Vol] 104 mmol/L Normal 98-107 [facility] Comment on above: Order Comment: Reaso n for Exam Other abnormal blood chemistry Reason for Exam Hyperlipidemia PT IS FASTING Reason for Exam Hypothyroidism Performed By: #### L IPID, CMP, T4F, TSH3 #### [facility] [address] [place] [address] [place] CO2 [Moles/Vol] 30.4 mmol/L Normal 21.0-31.0 [facility] Comment on above: Order Comment: Reaso n for Exam Other abnormal blood chemistry Reason for Exam Hyperlipidemia PT IS FASTING Reason for Exam Hypothyroidism Performed By: #### L IPID, CMP, T4F, TSH3 #### [facility] [address] [id number] [place] Creatinine [Mass/Vol] 1.25 mg/dL High 0.60-1.20 [facility] Comment on above: Order Comment: Reaso n for Exam Other abnormal blood chemistry Reason for Exam Hyperlipidemia PT IS FASTING Reason for Exam Hypothyroidism Performed By: #### L IPID, CMP, T4F, TSH3 #### [facility] [address] [place] [address] [place] GFR/1.73 sq M.predicted MDRD (S/P/Bld) [Vol rate/Area] 43.572 mL/min/{1.73_m2} Normal [facility] Comment on above: Order Comment: Reaso n for Exam Other abnormal blood chemistry Reason for Exam Hyperlipidemia PT IS FASTING Reason for Exam Hypothyroidism Performed By: #### L IPID, CMP, T4F, TSH3 #### [facility] [address] Globulin (S) [Mass/Vol] 2.4 g/dL Normal [facility] Comment on above: Order Comment: Reaso n for Exam Other abnormal blood chemistry Reason for Exam Hyperlipidemia PT IS FASTING Reason for Exam Hypothyroidism Performed By: #### L IPID, CMP, T4F, TSH3 #### [address] Glucose [Mass/Vol] 135 mg/dL High 74-109 [facility] Comment on above: Order Comment: Reaso n for Exam Other abnormal blood chemistry Reason for Exam Hyperlipidemia PT IS FASTING Reason for Exam Hypothyroidism Result Comment: [facility] Glucose Reference Range is dependent on time and content of last meal. Glucose of more than 200 mg/dL in a nonstressed, ambulatory subject supports the diagnosis of Diabetes Mellitus. ADA recommended reference range Performed By: #### L IPID, CMP, T4F, TSH3 #### [place] [address] [place] Potassium [Moles/Vol] 4.5 mmol/L Normal 3.5-5.1 [facility] Comment on above: Order Comment: Reaso n for Exam Other abnormal blood chemistry Reason for Exam Hyperlipidemia PT IS FASTING Reason for Exam Hypothyroidism Performed By: #### L IPID, CMP, T4F, TSH3 #### [facility] [address] Protein [Mass/Vol] 6.7 g/dL Normal 6.4-8.9 [facility] Comment on above: Order Comment: Reaso n for Exam Other abnormal blood chemistry Reason for Exam Hyperlipidemia PT IS FASTING Reason for Exam Hypothyroidism Performed By: #### L IPID, CMP, T4F, TSH3 #### [facility] [address] [place] [address] [place] Sodium [Moles/Vol] 142 mmol/L Normal 136-145 [facility] Comment on above: Order Comment: Reaso n for Exam Other abnormal blood chemistry Reason for Exam Hyperlipidemia PT IS FASTING Reason for Exam Hypothyroidism Performed By: #### L IPID, CMP, T4F, TSH3 #### [facility] [address] Urea nitrogen [Mass/Vol] 33 mg/dL High 7-25 [facility] Comment on above: Order Comment: Reaso n for Exam Other abnormal blood chemistry Reason for Exam Hyperlipidemia PT IS FASTING Reason for Exam Hypothyroidism Performed By: #### L IPID, CMP, T4F, TSH3 #### [facility] [address] Creatinine [Mass/volume] in Serum or PlasmaOrdered By: Ayanna Vicente on 09-30-2022 Creatinine [Mass/Vol] 1.25 mg/dL 0.60-1.20 [facility] Eosinophils Auto (Bld) [#/Vo l]Ordered By: Ayanna Vicente on 09-30-2022 Eosinophils (Bld) [#/Vol] 0.3 10*3/uL 0.0-0.45 [facility] Eosinophils/100 WBC Auto (Bl d)Ordered By: Ayanna Vicente on 09-30-2022 Eosinophils/100 WBC (Bld) 2.3 % . [facility] Erythrocyte distribution wid th Auto (RBC) [Ratio]Ordered By: Ayanna Vicente on 09-30-2022 Erythrocyte distribution width (RBC) [Ratio] 15.4 % 11.9-15.3 [facility] Free T4 (Free Thyroxine)on 0 09-30-2022 Free T4 [Mass/Vol] 0.86 ng/dL Normal 0.61-1.12 [facility] Comment on above: Order Comment: Reaso n for Exam Other abnormal blood chemistry Reason for Exam Hyperlipidemia PT IS FASTING Reason for Exam Hypothyroidism Performed By: #### L IPID, CMP, T4F, TSH3 #### [facility] [address] [place] [id number] [facility] Globulin Calc (S) [Mass/Vol] Ordered By: Ayanna Vicente on 09-30-2022 Globulin (S) [Mass/Vol] 2.4 g/dL [facility] Glucose [Mass/volume] in Ser um or PlasmaOrdered By: Ayanna Vicente on 09-30-2022 Glucose [Mass/Vol] 135 mg/dL 74-109 [facility] Comment on above: ADA recommended refe rence rangeRandom Glucose Reference Range is dependent on time and content of last meal. Glucose of more than 200 mg/dL in a nonstressed, ambulatory subject supports the diagnosis of Diabetes Mellitus. Glucose mean value [Mass/vol ume] in Blood Estimated from glycated hemoglobinOrdered By: Ayanna Vicente on 09-30-2022 Average glucose Estimated from glycated hemoglobin (Bld) [Mass/Vol] 203 mg/dL [facility] Hematocrit Auto (Bld) [Volum e fraction]Ordered By: Ayanna Vicente on 09-30-2022 Hematocrit (Bld) [Volume fraction] 37.0 % 34.0-46.4 [facility] Hemoglobin A1c percentageOrd ered By: Ayanna Vicente on 09-30-2022 HbA1c (Bld) [Mass fraction] 8.7 % 4.3-5.6 [facility] Comment on above: Increased risk for d iabetes: 5.7 - 6.4diabetes: >6.4glycemic control for adults with diabetes: <7.0 Hemoglobin [Mass/volume] in BloodOrdered By: Ayanna Vicente on 09-30-2022 Hemoglobin (Bld) [Mass/Vol] 12.1 g/dL 11.8-15.4 [facility] Laboratory - Chemistry and C hemistry - challengeOrdered By: Ayanna Vicente on 09-30-2022 GFR/1.73 sq M.predicted MDRD (S/P/Bld) [Vol rate/Area] 43.572 mL/min/{1.73_m2} [facility] Leukocytes [#/volume] correc andreina for nucleated erythrocytes in Blood by Automated counOrdered By: Ayanna Vicente on 09-30-2022 WBC corrected for nucl RBC Auto (Bld) [#/Vol] 15.2 10*3/uL 3.8-11.6 [facility] Lipid Panelon 09-30-2022 Cholesterol [Mass/Vol] 117 mg/dL Low 140-200 [facility] Comment on above: Order Comment: Reaso n for Exam Other abnormal blood chemistry Reason for Exam Hyperlipidemia PT IS FASTING Reason for Exam Hypothyroidism Result Comment: Chol less than 200 mg/dl low risk Chol 201-239 mg/dl borderline risk Chol 240 mg/dl and greater high risk Performed By: #### L IPID, CMP, T4F, TSH3 #### [facility] [address] [place] [address] [place] Cholesterol in HDL [Mass/Vol] 39 mg/dL Normal 35-85 [facility] Comment on above: Order Comment: Reaso n for Exam Other abnormal blood chemistry Reason for Exam Hyperlipidemia PT IS FASTING Reason for Exam Hypothyroidism Result Comment: HDL CHOL ATP-III CLASSIFICATION Cardiovascular Risk HDL > or equal to 60 mg/dL LOW HDL < 40 mg/dL HIGH Performed By: #### L IPID, CMP, T4F, TSH3 #### [facility] [address] [place] [id number] [place] Cholesterol.total/Choles terol in HDL [Mass ratio] 3.0 {ratio} Normal <5.0 [facility] Comment on above: Order Comment: Reaso n for Exam Other abnormal blood chemistry Reason for Exam Hyperlipidemia PT IS FASTING Reason for Exam Hypothyroidism Performed By: #### L IPID, CMP, T4F, TSH3 #### [facility] [address] [place] [address] [place] LDL Cholesterol,Calculated 35 mg/dL Normal 0-100 [facility] Comment on above: Order Comment: Reaso n for Exam Other abnormal blood chemistry Reason for Exam Hyperlipidemia PT IS FASTING Reason for Exam Hypothyroidism Result Comment: LDL ATP III CLASSIFICATION LDL less than 100 mg/dL Optimal LDL 100-129 mg/dL Near or above optimal LDL 130-159 mg/dL Borderline high LDL 160-189 mg/dL High LDL greater than 189 mg/dL Very high Performed By: #### L IPID, CMP, T4F, TSH3 #### [facility] [address] [place] [id number] [place] Triglyceride w/Reflex 216 mg/dL High 0-149 [facility] Comment on above: Order Comment: Reaso n for Exam Other abnormal blood chemistry Reason for Exam Hyperlipidemia PT IS FASTING Reason for Exam Hypothyroidism Result Comment: TRIG ATP III CLASSIFICATION TRIG less than 150 mg/dL Normal TRIG 150-199 mg/dL Borderline high TRIG 200-500 mg/dL High TRIG greater than 500 mg/dL Very high Standard traceable to the Center for Disease Conrtrol and Prevention (CDC) test method. Performed By: #### L IPID, CMP, T4F, TSH3 #### [facility] [address] VLDL CHOLESTEROL 43 mg/dL Normal [facility] Comment on above: Order Comment: Reaso n for Exam Other abnormal blood chemistry Reason for Exam Hyperlipidemia PT IS FASTING Reason for Exam Hypothyroidism Performed By: #### L IPID, CMP, T4F, TSH3 #### [facility] [address] Lymphocytes Auto (Bld) [#/Vo l]Ordered By: Ayanna Vicente on 09-30-2022 Lymphocytes (Bld) [#/Vol] 10.5 10*3/uL 1.00-4.8 [facility] Lymphocytes/100 WBC Auto (Bl d)Ordered By: Ayanna Vicente on 09-30-2022 Lymphocytes/100 WBC (Bld) 69.4 % . [facility] MCH Auto (RBC) [Entitic mass ]Ordered By: Ayanna Vicente on 09-30-2022 MCH (RBC) [Entitic mass] 28.4 pg 24.7-34.3 [facility] MCHC Auto (RBC) [Mass/Vol]Or dered By: Ayanna Vicente on 09-30-2022 MCHC (RBC) [Mass/Vol] 32.7 g/dL 32.0-35.0 [facility] MCV Auto (RBC) [Entitic vol] Ordered By: Ayanna Vicente on 09-30-2022 MCV (RBC) [Entitic vol] 86.9 fL 80-100 [facility] Microalbumin [Mass/volume] i n UrineOrdered By: Ayanna Vicente on 09-30-2022 Albumin DL <= 20 mg/L (U) [Mass/Vol] 1.9 mg/dL 0.0-1.8 [facility] Microalbumin, Urine (Random) on 09-30-2022 Albumin DL <= 20 mg/L (U) [Mass/Vol] 1.9 mg/dL High 0.0-1.8 [facility] Comment on above: Order Comment: Reaso n for Exam Diabetes type 2, uncontrolled Result Comment: PERF ORMED BY: [facility] [address] [place] [address] PATHOLOGIST OPERATIONS STAFF SPECIALIST SECURITY MATHIEU RASCON M.D. Performed By: #### U RMA #### [facility] [address] Monocytes Auto (Bld) [#/Vol] Ordered By: Ayanna Vicente on 09-30-2022 Monocytes (Bld) [#/Vol] 0.7 10*3/uL 0.0-0.8 [facility] Monocytes/100 WBC Auto (Bld) Ordered By: Ayanna Vicente on 09-30-2022 Monocytes/100 WBC (Bld) 4.5 % . [facility] Neutrophils Auto (Bld) [#/Vo l]Ordered By: Ayanna Vicente on 09-30-2022 Neutrophils (Bld) [#/Vol] 3.6 10*3/uL 1.8-7.7 [facility] Neutrophils/100 WBC Auto (Bl d)Ordered By: Ayanna Vicente on 09-30-2022 Neutrophils/100 WBC (Bld) 23.5 % . [facility] No Panel InformationOrdered By: Ayanna Vicente on 09-30-2022 Pharmacy Creatinine Clearance (Chem N/A [facility] Nucleated erythrocytes [Pres ence] in Blood by Automated countOrdered By: Ayanna Vicente on 09-30-2022 Nucleated RBC Auto Ql (Bld) 0.6 /100{WBC} 0-0.5 [facility] Ovalocyte detectionOrdered B y: Ayanna Vicente on 09-30-2022 Ovalocytes LM Ql (Bld) Slight Fi [facility] Platelet adequacy [Presence] in Blood by Light microscopyOrdered By: Ayanna Vicente on 09-30-2022 Platelets LM Ql (Bld) Normal Normal [facility] Platelet mean volume Auto (B ld) [Entitic vol]Ordered By: Ayanna Vicente on 09-30-2022 Platelet mean volume (Bld) [Entitic vol] 8.9 fL 6.3-10.7 [facility] Platelet morphology finding [Identifier] in BloodOrdered By: Ayanna Vicente on 09-30-2022 Platelet morphology finding Nom (Bld) Normal Normal [facility] Platelets Auto (Bld) [#/Vol] Ordered By: Ayanna Vicente on 09-30-2022 Platelets (Bld) [#/Vol] 230 10*3/uL 150-450 [facility] Poikilocytosis [Presence] in Blood by Light microscopyOrdered By: Ayanna Vicente on 09-30-2022 Poikilocytosis LM Ql (Bld) Slight [facility] Potassium [Moles/volume] in Serum or PlasmaOrdered By: Ayanna Vicente on 09-30-2022 Potassium [Moles/Vol] 4.5 mmol/L 3.5-5.1 [facility] Protein [Mass/volume] in Ser um or PlasmaOrdered By: Ayanna Vicente on 09-30-2022 Protein [Mass/Vol] 6.7 g/dL 6.4-8.9 [facility] RBC Auto (Bld) [#/Vol]Ordere d By: Ayanna Vicente on 09-30-2022 RBC (Bld) [#/Vol] 4.26 10*6/uL 3.60-5.00 [place] RBC morphologyOrdered By: Vasile Vicente on 09-30-2022 RBC morphology finding Nom (Bld) N/A [facility] Scan and CBCon 09-30-2022 Anisocytosis Ql (Bld) Slight Normal [facility] Comment on above: Order Comment: Reaso n for Exam Other halfway (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 therapy Performed By: #### S CAN CBC #### [facility] [address] [place] [address] Basophils (Bld) [#/Vol] 0.0 10*3/uL Normal 0.0-0.2 [facility] Comment on above: Order Comment: Reaso n for Exam Other halfway (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 therapy Performed By: #### S CAN CBC #### [facility] [address] [place] [address] [place] Basophils/100 WBC (Bld) 0.3 % Normal . [facility] Comment on above: Order Comment: Reaso n for Exam Other ocean transportation intermediary (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 therapy Performed By: #### S CAN CBC #### [facility] [address] [place] [address] [place] Eosinophils (Bld) [#/Vol] 0.3 10*3/uL Normal 0.0-0.45 [facility] Comment on above: Order Comment: Reaso n for Exam Other halfway (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 therapy Performed By: #### S CAN CBC #### [facility] [address] [place] [address] Eosinophils/100 WBC (Bld) 2.3 % Normal . [facility] Comment on above: Order Comment: Reaso n for Exam Other ocean transportation intermediary (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 therapy Performed By: #### S CAN CBC #### [address] Erythrocyte distribution width (RBC) [Ratio] 15.4 % High 11.9-15.3 [facility] Comment on above: Order Comment: Reaso n for Exam Other ocean transportation intermediary (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 therapy Performed By: #### S CAN CBC #### [address] Hematocrit (Bld) [Volume fraction] 37.0 % Normal 34.0-46.4 [facility] Comment on above: Order Comment: Reaso n for Exam Other halfway (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 therapy Performed By: #### S CAN CBC #### [facility] [address] [place] [address] [place] Hemoglobin (Bld) [Mass/Vol] 12.1 g/dL Normal 11.8-15.4 [facility] Comment on above: Order Comment: Reaso n for Exam Other ocean transportation intermediary (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 therapy Performed By: #### S CAN CBC #### [facility] [address] [place] [address] [place] Lymphocytes (Bld) [#/Vol] 10.5 10*3/uL High 1.00-4.8 [facility] Comment on above: Order Comment: Reaso n for Exam Other ocean transportation intermediary (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 therapy Performed By: #### S CAN CBC #### [facility] [address] [place] [address] [place] Lymphocytes/100 WBC (Bld) 69.4 % Normal . [facility] Comment on above: Order Comment: Reaso n for Exam Other ocean transportation intermediary (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 therapy Performed By: #### S CAN CBC #### [facility] [address] [place] [address] MCH (RBC) [Entitic mass] 28.4 pg Normal 24.7-34.3 [facility] Comment on above: Order Comment: Reaso n for Exam Other ocean transportation intermediary (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 therapy Performed By: #### S CAN CBC #### [address] MCV (RBC) [Entitic vol] 86.9 fL Normal 80-100 [facility] Comment on above: Order Comment: Reaso n for Exam Other ocean transportation intermediary (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 therapy Performed By: #### S CAN CBC #### [facility] [address] [place] [address] Mean Corpuscular HGB Conc 32.7 g/dL Normal 32.0-35.0 [facility] Comment on above: Order Comment: Reaso n for Exam Other ocean transportation intermediary (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 therapy Performed By: #### S CAN CBC #### [facility] [address] [place] [address] [place] Monocytes (Bld) [#/Vol] 0.7 10*3/uL Normal 0.0-0.8 [facility] Comment on above: Order Comment: Reaso n for Exam Other ocean transportation intermediary (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 therapy Performed By: #### S CAN CBC #### [facility] [address] [place] [address] [place] Monocytes/100 WBC (Bld) 4.5 % Normal . [facility] Comment on above: Order Comment: Reaso n for Exam Other halfway (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 therapy Performed By: #### S CAN CBC #### [facility] [address] [place] [address] Neutrophils (Bld) [#/Vol] 3.6 10*3/uL Normal 1.8-7.7 [facility] Comment on above: Order Comment: Reaso n for Exam Other halfway (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 therapy Performed By: #### S CAN CBC #### [facility] [address] [place] [address] Neutrophils/100 WBC (Bld) 23.5 % Normal . [facility] Comment on above: Order Comment: Reaso n for Exam Other halfway (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 therapy Performed By: #### S CAN CBC #### [facility] [address] [place] [address] NRBC% 0.6 /100{WBC} High 0-0.5 [facility] Comment on above: Order Comment: Reaso n for Exam Other ocean transportation intermediary (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 therapy Performed By: #### S CAN CBC #### [facility] [address] [place] [address] Ovalocytes Slight Normal [facility] Comment on above: Order Comment: Reaso n for Exam Other ocean transportation intermediary (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 therapy Performed By: #### S CAN CBC #### [address] Platelet Estimate Normal Normal Normal [facility] Comment on above: Order Comment: Reaso n for Exam Other halfway (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 therapy Performed By: #### S CAN CBC #### [facility] [address] [place] [address] Platelet mean volume (Bld) [Entitic vol] 8.9 fL Normal 6.3-10.7 [facility] Comment on above: Order Comment: Reaso n for Exam Other halfway (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 therapy Performed By: #### S CAN CBC #### [facility] [address] [place] [address] Platelet Morphology Normal Normal Normal [place] Comment on above: Order Comment: Reaso n for Exam Other halfway (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 therapy Result Comment: PERF ORMED BY: [place] [address] PATHOLOGIST OPERATIONS STAFF SPECIALIST SECURITY MATHIEU RASCON M.D. Performed By: #### S CAN CBC #### [facility] [address] [place] [address] Platelets (Bld) [#/Vol] 230 10*3/uL Normal 150-450 [facility] Comment on above: Order Comment: Reaso n for Exam Other ocean transportation intermediary (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 therapy Performed By: #### S CAN CBC #### [facility] [address] [place] [address] Poikilocytosis Slight Normal [facility] Comment on above: Order Comment: Reaso n for Exam Other halfway (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 therapy Performed By: #### S CAN CBC #### [facility] [address] [place] [address] RBC (Bld) [#/Vol] 4.26 10*6/uL Normal 3.60-5.00 [place] Comment on above: Order Comment: Reaso n for Exam Other ocean transportation intermediary (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 therapy Performed By: #### S CAN CBC #### [facility] [address] [place] [address] WBC (Bld) [#/Vol] 15.2 10*3/uL High 3.8-11.6 [place] Comment on above: Order Comment: Reaso n for Exam Other ocean transportation intermediary (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 therapy Performed By: #### S CAN CBC #### [facility] [address] [place] [address] Serum or plasma albumin/glob ulin mass ratioOrdered By: Ayanna Vicente on 09-30-2022 Albumin/Globulin [Mass ratio] 1.8 {ratio} [facility] Serum or plasma anion gap de terminationOrdered By: Ayanna Vicente on 09-30-2022 Anion gap [Moles/Vol] 12.1 mmol/L 6.0-15.0 [facility] Serum or plasma high density lipoprotein (HDL) cholesterol measurementOrdered By: Ayanna Vicente on 09-30-2022 Cholesterol in HDL [Mass/Vol] 39 mg/dL 35-85 [facility] Comment on above: HDL CHOL ATP-III CLA SSIFICATION Cardiovascular RiskHDL > or equal to 60 mg/dL LOWHDL < 40 mg/dL HIGH Serum or plasma total choles terol/high density lipoprotein (HDL) cholesterol mass ratOrdered By: Ayanna Vicente on 09-30-2022 Cholesterol.total/Choles terol in HDL [Mass ratio] 3.0 {ratio} <5.0 [facility] Sodium [Moles/volume] in Ser um or PlasmaOrdered By: Ayanna Vicente on 09-30-2022 Sodium [Moles/Vol] 142 mmol/L 136-145 [facility] Thyroid Stimulating Hormoneo n 09-30-2022 TSH Qn 2.04 m[IU]/L Normal 0.45-5.33 [facility] Comment on above: Order Comment: Reaso n for Exam Other abnormal blood chemistry Reason for Exam Hyperlipidemia PT IS FASTING Reason for Exam Hypothyroidism Result Comment: PERF ORMED BY: [place] [address] PATHOLOGIST OPERATIONS STAFF SPECIALIST SECURITY MATHIEU RASCON M.D. Performed By: #### L IPID, CMP, T4F, TSH3 #### [address] Thyrotropin [Units/volume] i n Serum or PlasmaOrdered By: Ayanna Vicente on 09-30-2022 TSH Qn 2.04 m[IU]/L 0.45-5.33 [facility] Thyroxine (T4) free [Mass/vo lume] in Serum or PlasmaOrdered By: Ayanna Vicente on 09-30-2022 Free T4 [Mass/Vol] 0.86 ng/dL 0.61-1.12 [facility] Triglyceride [Mass/volume] i n Serum or PlasmaOrdered By: Ayanna Vicente on 09-30-2022 Triglyceride [Mass/Vol] 216 mg/dL 0-149 [facility] Comment on above: TRIG ATP III CLASSIF ICATIONTRIG less than 150 mg/dL NormalTRIG 150-199 mg/dL Borderline highTRIG 200-500 mg/dL High TRIG greater than 500 mg/dL Very highStandard traceable to the Center for Disease Conrtrol and Prevention (CDC) test method. Triiodothyronine (T3) Freeon 09-30-2022 Triiodothyronine (T3) Free 3.13 pg/mL Normal 2.50-3.90 [facility] Comment on above: Order Comment: Reaso n for Exam Hypothyroidism Result Comment: PERF ORMED BY: [place] [address] PATHOLOGIST OPERATIONS STAFF SPECIALIST SECURITY MATHIEU RASCON M.D. Performed By: #### T 3F #### [address] Triiodothyronine (T3) Free [ Mass/volume] in Serum or PlasmaOrdered By: Ayanna Vicente on 09-30-2022 Free T3 [Mass/Vol] 3.13 pg/mL 2.50-3.90 [facility] Urea nitrogen [Mass/volume] in Serum or PlasmaOrdered By: Ayanna Vicente on 09-30-2022 Urea nitrogen [Mass/Vol] 33 mg/dL 7 [facility] WBC Auto (Bld) [#/Vol]Ordere d By: Ayanna Vicente on 09-30-2022 WBC (Bld) [#/Vol] 15.2 10*3/uL 3.8-11.6 [place] XR pre/post mri xrayon 09-24 XR pre/post mri xray [facility] [place] [address] [place] [address] MRI Report Signed Patient: Kathy Washburn MR#: [id number] : 1940 Acct:[id number] Age/Sex: 82 / F ADM Date: 09/24/22 Loc: [facility] Room: Type: [facility] CLI Attending Dr: Sharda SHAH Copies to: PABLO Sam Ordering Provider: PABLO Sam Date of Service: 09/24/22 MR/MR cervical spine wo con: M50.30 DDD CERVICAL ([id number]) XR/XR pre/post mri xray: CERVICAL PRE'S MR cervical spine wo con, XR pre/post mri xray 09/24/2022 2:38 PM SIGNS AND SYMPTOMS: Posterior neck pain, numbness in arms and hands right greater than left PROTOCOL: Lateral and bilateral oblique radiographs of the cervical spine. Multiplanar multisequence MR images of the cervical spine were obtained without IV contrast COMPARISON: Cervical spine MRI 05/21/2019 FINDINGS: Radiographs of the cervical spine: There is straightening of the normal cervical lordosis. There is mild disc height loss at C3-C4, C4- C5, with moderate disc height loss at C5-6. There is anterior osteophyte formation greatest at C5- C6. Facet degenerative changes are present in the cervical spine. Facet degenerative change contributing to neural foraminal stenosis bilaterally throughout. The prevertebral soft tissues are within normal limits. Degenerative changes are partly visualized in the atlantoaxial joint. MRI cervical spine: Disc height loss and alignment is as noted above. There is preservation of vertebral body heights. Right-sided facet edema is noted at C4-C5. The marrow signal is within normal limits, otherwise. The cord is normal in signal. No epidural or paraspinous fluid collection is appreciated. The visualized paraspinous soft tissues are within normal limits. The prevertebral soft tissues are within normal limits. At C2-C3: There is a normal disc, central canal, and neural foramen. At C3-C4: Facet and uncovertebral degeneration changes are present right greater than left. There is moderate right and mild left neural foraminal narrowing with mild spinal canal narrowing. At C4-C5: Facet and uncovertebral joint degenerative changes are present contributing to mild bilateral neural foraminal narrowing with mild spinal canal narrowing. At C5-C6: There is a broad-based disc bulge with facet and uncovertebral joints and change contributing to moderate to severe right neural foraminal narrowing with mild spinal canal narrowing. At C6-C7: There is facet and uncovertebral joint degenerative change left greater than right. There is moderate left and mild right neural foraminal narrowing with mild spinal canal narrowing. At C7-T1: There is a normal disc, central canal, and neural foramen. MR/MR cervical spine wo con IMPRESSION: No cord compression or cord signal abnormality. Multilevel degenerative change is noted contributing to varying degrees of spinal canal and neural foraminal narrowing, as above. Impression dictated by: Favian Pacheco M.D.09/24/2022 4:02 PM Dictation Location: [place] [address] Transcribed By: [facility] 09/24/22 1602 Dictated By: Favian Pacheco II, MD 09/24/22 1548 Signed By: 09/24/22 1602 Normal [facility] MM diagnostic mammo BI w/CAD on 08-29-2022 MM diagnostic mammo BI w/CAD [facility] [place] [place] [address] Ultrasound Report Signed Patient: Kathy Washburn MR#: [id number] : 1940 Acct:[id number] Age/Sex: 82 / F ADM Date: 08/29/22 Loc: [place] Room: Type: [facility] Attending Dr: Francine Lares MD Ordering Provider: Francine Lares MD Date of Service: 08/29/22 MM/MM diagnostic mammo BI w/CAD: LUMP LEFT BREAST ([id number]) US/US breast LT limited: Z12.31 Copies to: Francine Lares MD CLINICAL DATA: Palpable lump left breast. BilateralDIAGNOSTIC MAMMOGRAM - WITH TOMOSYNTHESIS AND CAD , leftLIMITED BREAST ULTRASOUND COMPARISON:Mammograms dating back to 2010 Tomosynthesis imaging was obtained using low-dose digital technique. This examination was reviewed with the aid of CAD. Additional ultrasound imaging was also obtained. Mammogram: The breasts are composed of scattered fibroglandular densities. No areas of architectural distortion, worrisome masses or suspicious microcalcifications. Ultrasound: In the area palpable lump at the 1:00 position of the left breast approximately 10 cm from the nipple, dense breast tissue is present. No sinister mass or cyst is noted. US/US breast LT limited IMPRESSION: NO MAMMOGRAPHIC OR ULTRASOUND EVIDENCE OF MALIGNANCY. THE PATIENT'S BREAST LUMP SHOULD BE HANDLED ON A CLINICAL BASIS. ROUTINE FOLLOW-UP IS RECOMMENDED IN ONE YEAR. RESULT CODE: 1 Negative DENSITY CODE: 2 (approximately 25-50% glandular) FOLLOW UP: 1YR The false-negative rate of mammography is approximately 10-percent. Management of a palpable abnormality must be based on clinical grounds. Impression dictated by: Galo Rodriguez Jr., D.OArmando08/29/2022 2:18 PM Dictation Location: [facility] Tech: Corazon Marcelino Transcribed By: STAS 08/29/221417 Dictated By: Galo Rodriguez Jr, DO 08/29/221413 Signed By: 08/29/22 141 [facility] MR lumbar spine wo michaelleon MR lumbar spine wo con [facility] Main [place] [address] [place] [address] MRI Report Signed Patient: Kathy Washburn MR#: [id number] : 1940 Acct:[id number] Age/Sex: 82 / F ADM Date: 08/29/22 Loc: [facility] Room: Type: [facility] CLI Attending Dr: Sharda SHAH Copies to: PABLO Sam Ordering Provider: PABLO Sam Date of Service: 08/29/22 MR/MR lumbar spine wo con: M47.816 MRI lumbar spine withoutcontrast TECHNIQUE: Multiplanar T1 and T2-weighted imaging of lumbar spine obtained without contrast. HISTORY:Low back pain extending into the buttocks down both hips. Bilateral leg weakness. COMPARISON:05/21/19 The last fully segmented vertebral pair is operationally defined as L5/S1. Post surgery changes: L4-5 posterior spinal fixation hardware. Interbody fusion changes at the L4-5 level. Bony alignment: Adequate bony alignment identified. Spinal canal:No significant central canal narrowing. Lumbar fracture: No lumbar spine fracture is identified. Bony lesions: None Retroperitoneum: No hydronephrosis is identified. No aortic aneurysm is seen. Conus medullaris The distal spinal cord is in adequate position without abnormality. Additional findings Lower thoracic level: Unremarkable L1-2:Moderate spondylosis. Minor retrolisthesis. Mild diffuse disc bulge. Patent central canal. Facet ligamentum flavum hypertrophy. Mild bilateral neural foraminal narrowing. L2-3: Moderate spondylosis. Mild retrolisthesis. Mild diffuse disc bulge. Facet 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 [id number] bilateral neural foraminal narrowing secondary to disc and osteophyte complex and facet spurring. L3-4:Moderate spondylosis. Mild retrolisthesis. Diffuse disc bulge. Facet ligamentum flavum hypertrophy. Mild to moderate central canal stenosis. Moderate to marked RIGHT neural foraminal narrowing. Mild LEFT neural foraminal narrowing. L4-5:Unremarkable interbody and posterior fusion changes. Patent central canal. Posterior fluid collection which is stable. This measures up to 19 mm. Patent neural foramen. L5-S1:Mild spondylosis. Mild diffuse disc bulge. Flattening of the anterior thecal sac. Patent central canal. Moderate bilateral neural foraminal narrowing secondary to disc and osteophyte complex and facet spurring. MR/MR lumbar spine wo con IMPRESSION:Similar discovertebral degenerative changes with progressive L3-4 spondylosis.. Similar central canal stenoses which is moderate at the L3-4 segment. Stable postsurgical change. Impression dictated by: Stanford Arndt M.D.08/29/2022 2:17 PM Dictation Location: [place] [address] Transcribed By: [facility] 08/29/22 1417 Dictated By: Stanford Arndt DO 08/29/22 1401 Signed By: 08/29/22 1417 Normal [facility] XR pre/post mri xrayon 08-29 XR pre/post mri xray [facility] [place] [place] [address] XRay Report Signed Patient: Kathy Washburn MR#: [id number] : 1940 Acct:[id number] Age/Sex: 82 / F ADM Date: 08/29/22 Loc: [facility] Room: Type: [facility] Attending Dr: Sharda SHAH Copies to: PABLO Sam Ordering Provider: PABLO Sam Date of Service: 08/29/22 XR/XR pre/post mri xray: LUMBAR MRI 2 views of lumbar spine obtained for pre-MRI assessment. L4-5 posterior interbody fusion changes present. No hardware failure. Advanced L3-4 spondylosis. Mild L1-2 and L2-3 spondylosis. Hypertrophic facet changes. L5-S1 moderate spondylosis. Atherosclerosis. Mild SI joint degeneration. XR/XR pre/post mri xray IMPRESSION: No hardware failure. Extensive L2-3 spondylosis. Impression dictated by: Stanford Arndt M.D.08/29/2022 2:28 PM Dictation Location: [facility]- Transcribed By: [facility] 08/29/22 142 Dictated By: Stanford Arndt DO 08/29/221425 Signed By: 08/29/221427 [facility] XR ribs LT min 3V w CXR1V*on 08-12-2022 XR ribs LT min 3V w CXR1V* [place] [address] XRay Report Signed Patient: Kathy Washburn MR#: [id number] : 1940 Acct:[id number] Age/Sex: 82 / F ADM Date: 08/12/22 Loc: XD Room: Type: [facility] Attending Dr: Francine Lares MD Copies to: Francine Lares MD Ordering Provider: Francine Lares MD Date of Service: 08/12/22 XR/XR ribs LT min 3V w CXR1V*: R07.81 XR ribs LT min 3V w CXR1V* 08/12/2022 12:28 PM SIGNS AND SYMPTOMS: Left-sided rib pain PROTOCOL: Frontal radiograph of the chest with oblique radiographs of the left ribs COMPARISON: 01/13/2022 FINDINGS: The trachea is midline. The heart and mediastinal structures are within normal limits. The lung parenchyma is clear. The bony thorax is intact. There is no evidence of acute displaced fracture. Degenerative changes are noted in the shoulders and thoracic spine. XR/XR ribs LT min 3V w CXR1V* IMPRESSION: No acute cardiopulmonary pathology. No acute displaced rib fracture. Impression dictated by: Favian Pacheco M.D.08/12/2022 3:15 PM Dictation Location: [facility]- Transcribed By: STAS 08/12/22 151 Dictated By: Favian Pacheco II, MD 08/12/221511 Signed By: 08/12/221514 [facility] CA holter monitor recordingo n 08-02-2022 CA holter monitor recording [place] [address] [place] [address] Holter Monitor Report Signed Patient: Kathy Washburn MR#: [id number] : 1940 Acct:[id number] Age/Sex: 82 / F ADM Date: 07/24/22 Loc: Room: Type: [facility] Attending Dr: Ayanna Vicente DO Copies to: DO Sarah Davila MD Ordering Provider: Ayanna Vicente DO Date of Service: 07/24/22 CA/CA holter monitor recording: palpitations REFERRING PHYSICIAN: Ayanna Vicente DO REASON FOR THE STUDY: Palpitation. PROCEDURE: The patient underwent 48-hour Holter monitor. Baseline rhythm is normal sinus rhythm with average heart rate of 71 beats per minute, ranging from 51 to 113 beats per minute. There were a total of 2582 isolated ventricular ectopic beats and a total of 42 isolated supraventricular ectopic beats. There was no significant tachyarrhythmia or bradyarrhythmia. There were no pauses or bradycardic episode. No symptoms entered by the patient. CONCLUSIONS: 1. Normal sinus rhythm. 2. Frequent isolated ventricular ectopic beats, but no ventricular tachycardia. 3. Occasional isolated supraventricular ectopic beats. 4. No significant tachyarrhythmia or bradyarrhythmia. 5. No symptoms entered by the patient. Transcribed By: WALE 08/02/22 1728 Dictated By: Sarah Hodges MD 08/02/22 1551 Signed By: 08/02/22 1832 [facility] No Panel InformationOrdered By: Ayanna Vicente on 04-23-2022 25-Hydroxy Vitamin D Total 49.9 ng/mL 30-100 [facility] Comment on above: VITAMIN D STATUS 25( [place])VITAMIN D RANGE (ng/mL) Deficient <20 Insufficient 20 to <30Sufficient 30 to 100Reference: Nile CAMPOS,Joon HOPKINS, Chon ROD, et al. Evaluation,treatment, and prevention of vitamin D deficiency; an Endocrine Society clinical practice guideline. JCEM. 2010; 96(7):1911-30. LD LACTATE DEHYDROon 022 LDH [Catalytic activity/Vol] 202 U/L 135 - 214 U/L [facility] Albumin [Mass/volume] in Ser um or PlasmaOrdered By: Ayanna Vicente on 04-01-2022 Albumin [Mass/Vol] 3.5 g/dL 3.2-5.5 [facility] Basophils Auto (Bld) [#/Vol] Ordered By: Ayanna Vicente on 04-01-2022 Basophils (Bld) [#/Vol] N/A [facility] Basophils/100 WBC Auto (Bld) Ordered By: Ayanna Vicente on 04-01-2022 Basophils/100 WBC (Bld) N/A [facility] Blood anisocytosis detection Ordered By: Ayanna Vicente on 04-01-2022 Anisocytosis Ql (Bld) Slight Fir [facility] Blood hemoglobin measurement (mass/volume)Ordered By: Ayanna Vicente on 04-01-2022 Hemoglobin (Bld) [Mass/Vol] 12.3 g/dL 11.8-15.4 [facility] Blood leukocytes automated c ount (number/volume)Ordered By: Ayanna Vicente on 04-01-2022 WBC (Bld) [#/Vol] 12.0 10*3/uL 4.5-11.0 [place] Cerebrospinal fluid unidenti fied cells/100 leukocytesOrdered By: Ayanna Vicente on 04-01-2022 Unidentified cells/100 WBC (CSF) 2 % 0-0 [facility] Comment on above: PRO LYMPHOCYTE Cholesterol [Mass/volume] in Serum or PlasmaOrdered By: Ayanna Vicente on 04-01-2022 Cholesterol [Mass/Vol] 102 mg/dL 140-200 [facility] Comment on above: Chol less than 200 m g/dl low risk Chol 201-239 mg/dl borderline risk Chol 240 mg/dl and greater high risk Chol less than 200 m g/dl low riskChol 201-239 mg/dl borderline riskChol 240 mg/dl and greater high risk Cholesterol in LDL Calc [Mas s/Vol]Ordered By: Ayanna Vicente on 04-01-2022 Cholesterol in LDL [Mass/Vol] 27 mg/dL 0-100 [facility] Comment on above: LDL ATP III CLASSIFI CATION LDL less than 100 mg/dL Optimal LDL 100-129 mg/dL Near or above optimal LDL 130-159 mg/dL Borderline high LDL 160-189 mg/dL High LDL greater than 189 mg/dL Very high LDL ATP III CLASSIFI CATIONLDL less than 100 mg/dL OptimalLDL 100-129 mg/dL Near or above optimalLDL 130-159 mg/dL Borderline highLDL 160-189 mg/dL HighLDL greater than 189 mg/dL Very high Cholesterol in VLDL Calc [Ma ss/Vol]Ordered By: Ayanna Vicente on 04-01-2022 Cholesterol in VLDL [Mass/Vol] 25 mg/dL [facility] Creatinine and Glomerular fi ltration rate.predicted panel (S/P/Bld)Ordered By: Ayanna Vicente on 04-01-2022 Creatinine [Mass/Vol] 0.84 mg/dL 0.44-1.03 [facility] Eosinophils Auto (Bld) [#/Vo l]Ordered By: Ayanna Vicente on 04-01-2022 Eosinophils (Bld) [#/Vol] N/A [facility] Eosinophils/100 WBC Auto (Bl d)Ordered By: Ayanna Vicente on 04-01-2022 Eosinophils/100 WBC (Bld) N/A [facility] Erythrocyte distribution wid th Auto (RBC) [Ratio]Ordered By: Ayanna Vicente on 04-01-2022 Erythrocyte distribution width (RBC) [Ratio] 17.0 % 11.9-15.3 [facility] Estimated glomerular filtrat ion rate (GFR) non- AmericanOrdered By: Ayanna Vicente on 04-01-2022 GFR/1.73 sq M.predicted among non-blacks MDRD (S/P/Bld) [Vol rate/Area] > 60 mL/Min [facility] Globulin Calc (S) [Mass/Vol] Ordered By: Ayanna Vicente on 04-01-2022 Globulin (S) [Mass/Vol] 2.9 g/dL [facility] Glucose mean value [Mass/vol ume] in Blood Estimated from glycated hemoglobinOrdered By: Ayanna Vicente on 04-01-2022 Average glucose Estimated from glycated hemoglobin (Bld) [Mass/Vol] 255 mg/dL [facility] Hematocrit Auto (Bld) [Volum e fraction]Ordered By: Ayanna Vicente on 04-01-2022 Hematocrit (Bld) [Volume fraction] 37.9 % 34.0-46.4 [facility] Hemoglobin A1c percentageOrd ered By: Ayanna Vicente on 04-01-2022 HbA1c (Bld) [Mass fraction] 10.5 % 4.3-5.6 [facility] Comment on above: Increased risk for d iabetes: 5.7 - 6.4 diabetes: >6.4 glycemic control for adults with diabetes: <7.0 Increased risk for d iabetes: 5.7 - 6.4diabetes: >6.4glycemic control for adults with diabetes: <7.0 Laboratory - Hematology and Cell countsOrdered By: Ayanna Vicente on 04-01-2022 Nucleated RBC/100 WBC (Bld) [Ratio] 0.2 % 0-0.5 [facility] Lymphocytes Auto (Bld) [#/Vo l]Ordered By: Ayanna Vicente on 04-01-2022 Lymphocytes (Bld) [#/Vol] N/A [facility] Lymphocytes/100 WBC Auto (Bl d)Ordered By: Ayanna Vicente on 04-01-2022 Lymphocytes/100 WBC (Bld) N/A [facility] Lymphocytes/100 WBC (Bld) 60 % 18-42 [facility] Lymphocytes/100 WBC Manual c nt (Bld)Ordered By: Ayanna Vicente on 04-01-2022 Lymphocytes/100 WBC (Bld) 3 % 0-12 [facility] MCH Auto (RBC) [Entitic mass ]Ordered By: Ayanna Vicente on 04-01-2022 MCH (RBC) [Entitic mass] 28.3 pg 24.7-34.3 [facility] MCHC Auto (RBC) [Mass/Vol]Or dered By: Ayanna Vicente on 04-01-2022 MCHC (RBC) [Mass/Vol] 32.4 g/dL 32.0-35.0 [facility] MCV Auto (RBC) [Entitic vol] Ordered By: Ayanna Vicente on 04-01-2022 MCV (RBC) [Entitic vol] 87.6 fL 80-100 [facility] Manual blood monocytes/100 l eukocytesOrdered By: Ayanna Vicente on 04-01-2022 Monocytes/100 WBC (Bld) 3 % 1-3 [facility] Monocytes Auto (Bld) [#/Vol] Ordered By: Ayanna Vicente on 04-01-2022 Monocytes (Bld) [#/Vol] N/A [facility] Monocytes/100 WBC Auto (Bld) Ordered By: Ayanna Vicente on 04-01-2022 Monocytes/100 WBC (Bld) N/A [facility] Neutrophils Auto (Bld) [#/Vo l]Ordered By: Ayanna Vicente on 04-01-2022 Neutrophils (Bld) [#/Vol] N/A [facility] Neutrophils/100 WBC Auto (Bl d)Ordered By: Ayanna Vicente on 04-01-2022 Neutrophils/100 WBC (Bld) N/A [facility] No Panel InformationOrdered By: Ayanna Vicente on 04-01-2022 Estimated GFR () > 60 mL/Min [facility] Comment on above: GFR estimated refere nce range: According to KDOQI guidelines, <60 ml/min/1.73m2 is sufficient to diagnose a patient with chronic kidney disease. Pharmacy Creatinine Clearance (Chem N/A [facility] Platelet Estimate Normal Normal [facility] Platelet Morphology Comment Normal Normal [facility] Smudge Cells Few [facility] Platelet mean volume Auto (B ld) [Entitic vol]Ordered By: Ayanna Vicente on 04-01-2022 Platelet mean volume (Bld) [Entitic vol] 9.3 fL 6.3-10.7 [facility] Platelets Auto (Bld) [#/Vol] Ordered By: Ayanna Vicente on 04-01-2022 Platelets (Bld) [#/Vol] 224 10*3/uL 150-450 [facility] Protein [Mass/volume] in Ser um or PlasmaOrdered By: Ayanna Vicente on 04-01-2022 Protein [Mass/Vol] 6.4 g/dL 6.1-7.9 [facility] RBC Auto (Bld) [#/Vol]Ordere d By: Ayanna Vicente on 04-01-2022 RBC (Bld) [#/Vol] 4.33 10*6/uL 3.60-5.00 [place] RBC morphologyOrdered By: Vasile Vicente on 04-01-2022 RBC morphology finding Nom (Bld) N/A [facility] Segmented neutrophils/100 WB C Manual cnt (Bld)Ordered By: Ayanna Vicente on 04-01-2022 Segmented neutrophils/100 WBC (Bld) 29 % 50-70 [facility] Serum or plasma alanine roman otransferase measurement without P-5'-P (enzymatic activiOrdered By: Ayanna Vicente on 04-01-2022 ALT No additional P-5'-P [Catalytic activity/Vol] 24 U/L 10-[address] [facility] Serum or plasma albumin/glob ulin mass ratioOrdered By: Ayanna Vicente on 04-01-2022 Albumin/Globulin [Mass ratio] 1.2 {ratio} [facility] Serum or plasma alkaline mayelin sphatase measurement (enzymatic activity/volume)Ordered By: Ayanna Vicente on 04-01-2022 ALP [Catalytic activity/Vol] 75 U/L 32-92 [facility] Serum or plasma anion gap de terminationOrdered By: Ayanna Vicente on 04-01-2022 Anion gap [Moles/Vol] 15.8 mmol/L 6.0-15.0 [facility] Serum or plasma aspartate am inotransferase measurement (enzymatic activity/volume)Ordered By: Ayanna Vicente on 04-01-2022 AST [Catalytic activity/Vol] 26 U/L 10-42 [facility] Serum or plasma calcium massimo urement (mass/volume)Ordered By: Ayanna Vicente on 04-01-2022 Calcium [Mass/Vol] 9.3 mg/dL 8.2-10.2 [facility] Serum or plasma chloride chris surement (moles/volume)Ordered By: Ayanna Vicente on 04-01-2022 Chloride [Moles/Vol] 103 mmol/L 95-114 [facility] Serum or plasma glucose massimo urement (mass/volume)Ordered By: Ayanna Vicente on 04-01-2022 Glucose [Mass/Vol] 163 mg/dL 70-100 [facility] Comment on above: ADA recommended refe rence range Random Glucose Reference Range is dependent on time and content of last meal. Glucose of more than 200 mg/dL in a nonstressed, ambulatory subject supports the diagnosis of Diabetes Mellitus. ADA recommended refe rence rangeRandom Glucose Reference Range is dependent on time and content of last meal. Glucose of more than 200 mg/dL in a nonstressed, ambulatory subject supports the diagnosis of Diabetes Mellitus. Serum or plasma high density lipoprotein (HDL) cholesterol measurementOrdered By: Ayanna Vicente on 04-01-2022 Cholesterol in HDL [Mass/Vol] 50 mg/dL 35-85 [facility] Comment on above: HDL CHOL ATP-III CLA SSIFICATION Cardiovascular Risk HDL > or equal to 60 mg/dL LOW HDL < 40 mg/dL HIGH HDL CHOL ATP-III CLA SSIFICATION Cardiovascular RiskHDL > or equal to 60 mg/dL LOWHDL < 40 mg/dL HIGH Serum or plasma potassium me asurement (moles/volume)Ordered By: Ayanna Vicente on 04-01-2022 Potassium [Moles/Vol] 4.4 mmol/L 3.5-5.1 [facility] Serum or plasma sodium measu rement (moles/volume)Ordered By: Ayanna Vicente on 04-01-2022 Sodium [Moles/Vol] 141 mmol/L 136-146 [facility] Serum or plasma total biliru bin measurement (mass/volume)Ordered By: Ayanna Vicente on 04-01-2022 Bilirubin [Mass/Vol] 0.3 mg/dL 0.3-1.2 [facility] Serum or plasma total carbon dioxide measurement (moles/volume)Ordered By: Ayanna Vicente on 04-01-2022 CO2 [Moles/Vol] 26.6 mmol/L 22.0-30.0 [facility] Serum or plasma total choles terol/high density lipoprotein (HDL) cholesterol mass ratOrdered By: Ayanna Vicente on 04-01-2022 Cholesterol.total/Choles terol in HDL [Mass ratio] 2.0 {ratio} <5.0 [facility] Serum or plasma urea nitroge n measurement (mass/volume)Ordered By: Ayanna Vicente on 04-01-2022 Urea nitrogen [Mass/Vol] 12 mg/dL 9-23 [facility] TSH DL <= 0.005 mIU/L QnOrde red By: Ayanna Vicente on 04-01-2022 TSH Qn 1.11 m[IU]/L 0.45-5.33 [facility] Thyroxine (T4) free [Mass/vo lume] in Serum or PlasmaOrdered By: Ayanna Vicente on 04-01-2022 Free T4 [Mass/Vol] 1.02 ng/dL 0.61-1.12 [facility] Triglyceride [Mass/volume] i n Serum or PlasmaOrdered By: Ayanna Vicente on 04-01-2022 Triglyceride [Mass/Vol] 125 mg/dL 35-149 [facility] Comment on above: TRIG ATP III CLASSIF ICATION TRIG less than 150 mg/dL Normal TRIG 150-199 mg/dL Borderline high TRIG 200-500 mg/dL High TRIG greater than 500 mg/dL Very high Standard traceable to the Center for Disease Conrtrol and Prevention (CDC) test method. TRIG ATP III CLASSIF ICATIONTRIG less than 150 mg/dL NormalTRIG 150-199 mg/dL Borderline highTRIG 200-500 mg/dL High TRIG greater than 500 mg/dL Very highStandard traceable to the Center for Disease Conrtrol and Prevention (CDC) test method. Triiodothyronine (T3) Free [ Mass/volume] in Serum or PlasmaOrdered By: Ayanna Vicente on 04-01-2022 Free T3 [Mass/Vol] 2.81 pg/mL 2.50-3.90 [facility] Glucose Glucometer (BldC) [M ass/Vol]Ordered By: Galo Max on 01-26-2022 Glucose [Mass/Vol] 117 mg/dL [facility] Comment on above: Random Glucose Refer ence Range is dependent on time and content of last meal. Glucose of more than 200 mg/dL in a nonstressed, ambulatory subject supports the diagnosis of Diabetes Mellitus. Basophils Auto (Bld) [#/Vol] Ordered By: Ashley Ramos on 01-25-2022 Basophils (Bld) [#/Vol] 0.0 10*3/uL 0.0-0.2 [facility] Basophils/100 WBC Auto (Bld) Ordered By: Ashley Ramos on 01-25-2022 Basophils/100 WBC (Bld) 0.3 % . [facility] Blood hemoglobin measurement (mass/volume)Ordered By: Ashley Ramos on 01-25-2022 Hemoglobin (Bld) [Mass/Vol] 11.0 g/dL 11.8-15.4 [facility] Blood leukocytes automated c ount (number/volume)Ordered By: Ashley Ramos on 01-25-2022 WBC (Bld) [#/Vol] 9.5 10*3/uL 4.5-11.0 [facility] Creatinine and Glomerular fi ltration rate.predicted panel (S/P/Bld)Ordered By: Ashley Ramos on 01-25-2022 Creatinine [Mass/Vol] 0.78 mg/dL 0.44-1.03 [facility] Eosinophils Auto (Bld) [#/Vo l]Ordered By: Ashley Ramos on 01-25-2022 Eosinophils (Bld) [#/Vol] 0.3 10*3/uL 0.0-0.45 [facility] Eosinophils/100 WBC Auto (Bl d)Ordered By: Ashley Ramos on 01-25-2022 Eosinophils/100 WBC (Bld) 3.6 % . [facility] Erythrocyte distribution wid th Auto (RBC) [Ratio]Ordered By: Ashley Ramos on 01-25-2022 Erythrocyte distribution width (RBC) [Ratio] 15.4 % 11.9-15.3 [facility] Estimated glomerular filtrat ion rate (GFR) non- AmericanOrdered By: Ashley Ramos on 01-25-2022 GFR/1.73 sq M.predicted among non-blacks MDRD (S/P/Bld) [Vol rate/Area] > 60 mL/Min [facility] Hematocrit Auto (Bld) [Volum e fraction]Ordered By: Ashley Ramos on 01-25-2022 Hematocrit (Bld) [Volume fraction] 33.2 % 34.0-46.4 [facility] Laboratory - Hematology and Cell countsOrdered By: Ashley Ramos on 01-25-2022 Nucleated RBC/100 WBC (Bld) [Ratio] 0.2 % 0-0.5 [facility] Lymphocytes Auto (Bld) [#/Vo l]Ordered By: Ashley Ramos on 01-25-2022 Lymphocytes (Bld) [#/Vol] 6.4 10*3/uL 1.00-4.8 [facility] Lymphocytes/100 WBC Auto (Bl d)Ordered By: Ashley Ramos on 01-25-2022 Lymphocytes/100 WBC (Bld) 67.6 % . [facility] MCH Auto (RBC) [Entitic mass ]Ordered By: Ashley Ramos on 01-25-2022 MCH (RBC) [Entitic mass] 28.7 pg 24.7-34.3 [facility] MCHC Auto (RBC) [Mass/Vol]Or dered By: Ashley Ramos on 01-25-2022 MCHC (RBC) [Mass/Vol] 33.3 g/dL 32.0-35.0 [facility] MCV Auto (RBC) [Entitic vol] Ordered By: Ashley Ramos on 01-25-2022 MCV (RBC) [Entitic vol] 86.3 fL 80-100 [facility] Monocytes Auto (Bld) [#/Vol] Ordered By: Ashley Ramos on 01-25-2022 Monocytes (Bld) [#/Vol] 0.7 10*3/uL 0.0-0.8 [facility] Monocytes/100 WBC Auto (Bld) Ordered By: Ashley Ramos on 01-25-2022 Monocytes/100 WBC (Bld) 7.4 % . [facility] Neutrophils Auto (Bld) [#/Vo l]Ordered By: Ashley Ramos on 01-25-2022 Neutrophils (Bld) [#/Vol] 2.0 10*3/uL 1.8-7.7 [facility] Neutrophils/100 WBC Auto (Bl d)Ordered By: Ashley Ramos on 01-25-2022 Neutrophils/100 WBC (Bld) 21.1 % . [facility] No Panel InformationOrdered By: Ashley Ramos on 01-25-2022 Estimated GFR () > 60 mL/Min [facility] Comment on above: GFR estimated refere nce range: According to KDOQI guidelines, <60 ml/min/1.73m2 is sufficient to diagnose a patient with chronic kidney disease. Pharmacy Creatinine Clearance (Chem 76.46 [facility] Platelet Estimate Normal Normal [facility] Platelet Morphology Comment Normal Normal [facility] Smudge Cells Few [facility] Platelet mean volume Auto (B ld) [Entitic vol]Ordered By: Ashley Ramos on 01-25-2022 Platelet mean volume (Bld) [Entitic vol] 8.6 fL 6.3-10.7 [facility] Platelets Auto (Bld) [#/Vol] Ordered By: Ashley Ramos on 01-25-2022 Platelets (Bld) [#/Vol] 240 10*3/uL 150-450 [facility] RBC Auto (Bld) [#/Vol]Ordere d By: Ashley Ramos on 01-25-2022 RBC (Bld) [#/Vol] 3.84 10*6/uL 3.60-5.00 [place] RBC morphologyOrdered By: Kendall Ramos on 01-25-2022 RBC morphology finding Nom (Bld) Normal [facility] Serum or plasma calcium massimo urement (mass/volume)Ordered By: Ashley Ramos on 01-25-2022 Calcium [Mass/Vol] 8.7 mg/dL 8.2-10.2 [facility] Serum or plasma chloride chris surement (moles/volume)Ordered By: Ashley Ramos on 01-25-2022 Chloride [Moles/Vol] 101 mmol/L 95-114 [facility] Serum or plasma glucose massimo urement (mass/volume)Ordered By: Ashley Ramos on 01-25-2022 Glucose [Mass/Vol] 133 mg/dL 70-100 [facility] Comment on above: ADA recommended refe rence range Random Glucose Reference Range is dependent on time and content of last meal. Glucose of more than 200 mg/dL in a nonstressed, ambulatory subject supports the diagnosis of Diabetes Mellitus. ADA recommended refe rence rangeRandom Glucose Reference Range is dependent on time and content of last meal. Glucose of more than 200 mg/dL in a nonstressed, ambulatory subject supports the diagnosis of Diabetes Mellitus. Serum or plasma potassium me asurement (moles/volume)Ordered By: Ashley Ramos on 01-25-2022 Potassium [Moles/Vol] 4.0 mmol/L 3.5-5.1 [facility] Serum or plasma sodium measu rement (moles/volume)Ordered By: Ashley Ramos on 01-25-2022 Sodium [Moles/Vol] 141 mmol/L 136-146 [facility] Serum or plasma total carbon dioxide measurement (moles/volume)Ordered By: Ashley Ramos on 01-25-2022 CO2 [Moles/Vol] 30.7 mmol/L 22.0-30.0 [facility] Serum or plasma urea nitroge n measurement (mass/volume)Ordered By: Ashley Ramos on 01-25-2022 Urea nitrogen [Mass/Vol] 14 mg/dL 9-23 [facility] No Panel InformationOrdered By: Galo Max on 01-24-2022 Bedside Glucose Comment Glu2: cleaned meter [facility] Bacterial blood cultureOrder ed By: James Redding on 01-18-2022 Bacteria identified Cx Nom (Bld) NO GROWTH 5 DAYS [facility] Albumin [Mass/volume] in Ser um or PlasmaOrdered By: Galo Max on 01-16-2022 Albumin [Mass/Vol] 3.1 g/dL 3.2-5.5 [facility] Blood acanthocytes detection by light microscopyOrdered By: Galo Max on 01-16-2022 Acanthocytes LM Ql (Bld) Rare [facility] Globulin Calc (S) [Mass/Vol] Ordered By: Galo Max on 01-16-2022 Globulin (S) [Mass/Vol] 3.0 g/dL [facility] No Panel InformationOrdered By: Galo Max on 01-16-2022 CBC Comment See comment [facility] Comment on above: Slide referred to joshua thologist for review Protein [Mass/volume] in Ser um or PlasmaOrdered By: Galo Max on 01-16-2022 Protein [Mass/Vol] 6.1 g/dL 6.1-7.9 [facility] Serum or plasma alanine roman otransferase measurement without P-5'-P (enzymatic activiOrdered By: Galo Max on 01-16-2022 ALT No additional P-5'-P [Catalytic activity/Vol] 24 U/L 10-[address] [facility] Serum or plasma albumin/glob ulin mass ratioOrdered By: Galo Max on 01-16-2022 Albumin/Globulin [Mass ratio] 1.0 {ratio} [facility] Serum or plasma alkaline mayelin sphatase measurement (enzymatic activity/volume)Ordered By: Galo Max on 01-16-2022 ALP [Catalytic activity/Vol] 88 U/L 32-92 [facility] Serum or plasma aspartate am inotransferase measurement (enzymatic activity/volume)Ordered By: Galo Max on 01-16-2022 AST [Catalytic activity/Vol] 23 U/L 10-42 [facility] Serum or plasma prealbumin m easurement (mass/volume)Ordered By: Galo Max on 01-16-2022 Prealbumin [Mass/Vol] 22.1 mg/dL 18.0-38.0 [facility] Serum or plasma total biliru bin measurement (mass/volume)Ordered By: Galo Max on 01-16-2022 Bilirubin [Mass/Vol] 0.6 mg/dL 0.3-1.2 [facility] Creatinine and Glomerular fi ltration rate.predicted panel (S/P/Bld)Ordered By: Bertram Grarison on 01-15-2022 Creatinine [Mass/Vol] 0.80 mg/dL 0.44-1.03 [facility] Comment on above: Delta: 1.35 on 01/14 Estimated glomerular filtrat ion rate (GFR) non- AmericanOrdered By: Bertram Garrison on 01-15-2022 GFR/1.73 sq M.predicted among non-blacks MDRD (S/P/Bld) [Vol rate/Area] > 60 mL/Min [facility] Glucose Glucometer (BldC) [M ass/Vol]Ordered By: Bertram Garrison on 01-15-2022 Glucose [Mass/Vol] 226 mg/dL [facility] Comment on above: Random Glucose Refer ence Range is dependent on time and content of last meal. Glucose of more than 200 mg/dL in a nonstressed, ambulatory subject supports the diagnosis of Diabetes Mellitus. No Panel InformationOrdered By: Bertram Garrison on 01-15-2022 Bedside Glucose Comment Glu2: cleaned meter [facility] Estimated GFR () > 60 mL/Min [facility] Comment on above: GFR estimated refere nce range: According to KDOQI guidelines, <60 ml/min/1.73m2 is sufficient to diagnose a patient with chronic kidney disease. Pharmacy Creatinine Clearance (Chem 75.85 [facility] Serum or plasma calcium massimo urement (mass/volume)Ordered By: Bertram Garrison on 01-15-2022 Calcium [Mass/Vol] 9.2 mg/dL 8.2-10.2 [facility] Serum or plasma chloride chris surement (moles/volume)Ordered By: Bertram Garrison on 01-15-2022 Chloride [Moles/Vol] 99 mmol/L 95-114 [facility] Serum or plasma glucose massimo urement (mass/volume)Ordered By: Bertram Garrison on 01-15-2022 Glucose [Mass/Vol] 293 mg/dL 70-100 [facility] Comment on above: ADA recommended refe rence range Random Glucose Reference Range is dependent on time and content of last meal. Glucose of more than 200 mg/dL in a nonstressed, ambulatory subject supports the diagnosis of Diabetes Mellitus. Serum or plasma potassium me asurement (moles/volume)Ordered By: Bertram Garrison on 01-15-2022 Potassium [Moles/Vol] 4.3 mmol/L 3.5-5.1 [facility] Serum or plasma sodium measu rement (moles/volume)Ordered By: Bertram Garrison on 01-15-2022 Sodium [Moles/Vol] 136 mmol/L 136-146 [facility] Serum or plasma total carbon dioxide measurement (moles/volume)Ordered By: Bertram Garrison on 01-15-2022 CO2 [Moles/Vol] 29.1 mmol/L 22.0-30.0 [facility] Serum or plasma urea nitroge n measurement (mass/volume)Ordered By: Bertram Garrison on 01-15-2022 Urea nitrogen [Mass/Vol] 23 mg/dL 9-23 [facility] Urine culture routineOrdered By: James Redding on 01-15-2022 Bacteria identified Cx Nom (U) Enterococcus faecalis [facility] Basophils Auto (Bld) [#/Vol] Ordered By: Bertram Garrison on 01-14-2022 Basophils (Bld) [#/Vol] 0.1 10*3/uL 0.0-0.2 [facility] Basophils/100 WBC Auto (Bld) Ordered By: Bertram Garrison on 01-14-2022 Basophils/100 WBC (Bld) 0.6 % . [facility] Blood acanthocytes detection by light microscopyOrdered By: Bertram Garrison on 01-14-2022 Acanthocytes LM Ql (Bld) Few [facility] Blood hemoglobin measurement (mass/volume)Ordered By: Bertram Garrison on 01-14-2022 Hemoglobin (Bld) [Mass/Vol] 11.7 g/dL 11.8-15.4 [facility] Blood leukocytes automated c ount (number/volume)Ordered By: Bertram Garrison on 01-14-2022 WBC (Bld) [#/Vol] 11.5 10*3/uL 4.5-11.0 [place] Eosinophils Auto (Bld) [#/Vo l]Ordered By: Bertram Garrison on 01-14-2022 Eosinophils (Bld) [#/Vol] 0.4 10*3/uL 0.0-0.45 [facility] Eosinophils/100 WBC Auto (Bl d)Ordered By: Bertram Garrison on 01-14-2022 Eosinophils/100 WBC (Bld) 3.3 % . [facility] Erythrocyte distribution wid th Auto (RBC) [Ratio]Ordered By: Bertram Garrison on 01-14-2022 Erythrocyte distribution width (RBC) [Ratio] 14.4 % 11.9-15.3 [facility] Hematocrit Auto (Bld) [Volum e fraction]Ordered By: Bertram Garrison on 01-14-2022 Hematocrit (Bld) [Volume fraction] 35.4 % 34.0-46.4 [facility] Laboratory - Hematology and Cell countsOrdered By: Bertram Garrison on 01-14-2022 Nucleated RBC/100 WBC (Bld) [Ratio] 0.3 % 0-0.5 [facility] Lymphocytes Auto (Bld) [#/Vo l]Ordered By: Bertram Garrison on 01-14-2022 Lymphocytes (Bld) [#/Vol] 7.2 10*3/uL 1.00-4.8 [facility] Lymphocytes/100 WBC Auto (Bl d)Ordered By: Bertram Garrison on 01-14-2022 Lymphocytes/100 WBC (Bld) 62.9 % . [facility] MCH Auto (RBC) [Entitic mass ]Ordered By: Bertram Garrison on 01-14-2022 MCH (RBC) [Entitic mass] 28.4 pg 24.7-34.3 [facility] MCHC Auto (RBC) [Mass/Vol]Or dered By: Bertram Garrison on 01-14-2022 MCHC (RBC) [Mass/Vol] 32.9 g/dL 32.0-35.0 [facility] MCV Auto (RBC) [Entitic vol] Ordered By: Bertram Garrison on 01-14-2022 MCV (RBC) [Entitic vol] 86.1 fL 80-100 [facility] Monocytes Auto (Bld) [#/Vol] Ordered By: Bertram Garrison on 01-14-2022 Monocytes (Bld) [#/Vol] 0.6 10*3/uL 0.0-0.8 [facility] Monocytes/100 WBC Auto (Bld) Ordered By: Bertram Garrison on 01-14-2022 Monocytes/100 WBC (Bld) 5.0 % . [facility] Neutrophils Auto (Bld) [#/Vo l]Ordered By: Bertram Garrison on 01-14-2022 Neutrophils (Bld) [#/Vol] 3.2 10*3/uL 1.8-7.7 [facility] Neutrophils/100 WBC Auto (Bl d)Ordered By: Bertram Garrison on 01-14-2022 Neutrophils/100 WBC (Bld) 28.2 % . [facility] No Panel InformationOrdered By: Bertram Garrison on 01-14-2022 Platelet Estimate Normal Normal [facility] Platelet Morphology Comment Normal Normal [facility] Platelet mean volume Auto (B ld) [Entitic vol]Ordered By: Bertram Garrison on 01-14-2022 Platelet mean volume (Bld) [Entitic vol] 9.8 fL 6.3-10.7 [facility] Platelets Auto (Bld) [#/Vol] Ordered By: Bertram Garrison on 01-14-2022 Platelets (Bld) [#/Vol] 277 10*3/uL 150-450 [facility] RBC Auto (Bld) [#/Vol]Ordere d By: Bertram Garrison on 01-14-2022 RBC (Bld) [#/Vol] 4.11 10*6/uL 3.60-5.00 [place] RBC morphologyOrdered By: New Garrison on 01-14-2022 RBC morphology finding Nom (Bld) Normal [facility] Albumin [Mass/volume] in Ser um or PlasmaOrdered By: James Redding on 01-13-2022 Albumin [Mass/Vol] 3.1 g/dL 3.2-5.5 [facility] Automated erythrocytes count in urine sediment (number/area)Ordered By: James Redding on 01-13-2022 RBC Auto (Urine sed) [#/Area] 0-1 [HPF] 0-4 [facility] Automated leukocytes count i n urine sediment (number/area)Ordered By: James Redding on 01-13-2022 WBC Auto (Urine sed) [#/Area] 50-100 [HPF] 0-4 [facility] Bilirubin Test strip Ql (U)O rdered By: James Redding on 01-13-2022 Bilirubin Ql (U) 1+ Negative [facility] COVID-19 Positive/NegativeOr dered By: James Redding on 01-13-2022 SARS-CoV-2 (COVID-19) N gene FARRAH+probe Ql (Resp) Negative Negative [facility] Comment on above: Testing for SARS-CoV -2 by RT-PCR This test was developed and its performance characteristics determined by [employer] and validated at the [facility]. This test has not been FDA cleared or approved. This test has been authorized by FDA under an Emergency Use Authorization (EUA). This test has been validated in accordance with the FDA's Guidance Document (Policy for Diagnostics Testing in Laboratories Certified to Perform High Complexity Testing under CLIA prior to Emergency Use Authorization for Coronavirus Disease-2019 during the Public Health Emergency) issued on October 14, 2019. This test is only authorized for the duration of time the declaration that circumstances exist justifying the authorization of the emergency use of in vitro diagnostic tests for detection of SARS-CoV-2 virus and/or diagnosis of COVID-19 infection under section 564(b)(1) of the Act, 21 U.S.C. 360bbb-3(b)(1), unless the authorization is terminated or revoked sooner. COVID-19 SOFIAOrdered By: Anni Redding on 01-13-2022 SARS-CoV+SARS-CoV-2 (COVID-19) Ag IA.rapid Ql (Resp) Negative Negative [facility] Comment on above: This is a duplicate Brianna SARS Antigen (DUSTIN) result to be used for statistical tracking purpose only. Color Auto (U)Ordered By: Anni Redding on 01-13-2022 Color (U) Dark yellow Yellow [facility] Globulin Calc (S) [Mass/Vol] Ordered By: James Redding on 01-13-2022 Globulin (S) [Mass/Vol] 3.0 g/dL [facility] Ketones Auto test strip (U) [Mass/Vol]Ordered By: James Redding on 01-13-2022 Ketones (U) [Mass/Vol] Trace Negative Fi [facility] Laboratory - UrinalysisOrder ed By: James Redding on 01-13-2022 Hyaline casts LM Ql (Urine sed) 9-19 [LPF] 0-8 [facility] Nitrite Test strip Ql (U)Ord ered By: James Redding on 01-13-2022 Nitrite Ql (U) Negative Negative [facility] No Panel InformationOrdered By: James Redding on 01-13-2022 Smudge Cells Few [facility] SARS Antigen (LFIA) [place] Protein Auto test strip (U) [Mass/Vol]Ordered By: James Redding on 01-13-2022 Protein (U) [Mass/Vol] 30 mg/dL Negative [facility] Protein [Mass/volume] in Ser um or PlasmaOrdered By: James Redding on 01-13-2022 Protein [Mass/Vol] 6.1 g/dL 6.1-7.9 [facility] Serum or plasma alanine roman otransferase measurement without P-5'-P (enzymatic activiOrdered By: James Redding on 01-13-2022 ALT No additional P-5'-P [Catalytic activity/Vol] 27 U/L 10-[address] [facility] Serum or plasma albumin/glob ulin mass ratioOrdered By: James Redding on 01-13-2022 Albumin/Globulin [Mass ratio] 1.0 {ratio} [facility] Serum or plasma alkaline mayelin sphatase measurement (enzymatic activity/volume)Ordered By: James Redding on 01-13-2022 ALP [Catalytic activity/Vol] 95 U/L 32-92 [facility] Serum or plasma aspartate am inotransferase measurement (enzymatic activity/volume)Ordered By: James Redding on 01-13-2022 AST [Catalytic activity/Vol] 27 U/L 10-42 [facility] Serum or plasma total biliru bin measurement (mass/volume)Ordered By: James Redding on 01-13-2022 Bilirubin [Mass/Vol] 0.6 mg/dL 0.3-1.2 [facility] Specific gravity Auto test s trip (U) [Rel density]Ordered By: James Redding on 01-13-2022 Specific gravity (U) [Rel density] 1.029 1.001-1.030 [facility] Squamous epithelial cells de tection in urine sediment by light microscopyOrdered By: James Redding on 01-13-2022 Epithelial cells.squamous LM Ql (Urine sed) 1-2 [HPF] 0-1 [facility] Troponin I.cardiac [Mass/vol ume] in Serum or Plasma by High sensitivity methodOrdered By: James Redding on 01-13-2022 Troponin I.cardiac High sensitivity method [Mass/Vol] 4 pg/mL 0-15 [facility] Urine bacteria detection by automated methodOrdered By: James Redding on 2022 Bacteria Auto Ql (U) 2+ None Seen [facility] Urine clarity by refractomet ry automatedOrdered By: James Redding on 01-13-2022 Clarity Refractometry automated (U) Cloudy Clear [facility] Urine glucose measurement by automated test strip (mass/volume)Ordered By: James Redding on 01-13-2022 Glucose Auto test strip (U) [Mass/Vol] Normal mg/dL Normal [facility] Urine hemoglobin detection b y automated test stripOrdered By: James Redding on 01-13-2022 Hemoglobin Auto test strip Ql (U) Negative Negative [facility] Urine leukocyte esterase det ection by automated test stripOrdered By: James Redding on 01-13-2022 Leukocyte esterase Auto test strip Ql (U) 3+ Negative [facility] Urobilinogen Auto test strip (U) [Mass/Vol]Ordered By: James Redding on 01-13-2022 Urobilinogen (U) [Mass/Vol] Normal mg/dL Normal [facility] pH Auto test strip (U)Ordere d By: James Redding on 01-13-2022 pH (U) 5.0 [pH] 5.0-9.0 [facility] CARDIAC STRESS/REST INJE CTIONon 01-04-2021 [facility] CARDIAC STRESS/REST INJECTION Patient Name: KATHY WASHBURN STUDY: MYOCARDIAL PERFUSION STRESS TEST WITH LEXISCAN Performing facility: [facility], [address] [place] [address], [address], [address] Provider: Osmel Fernandes MD, FACC PCP: Dr. Lyndon Vicente Supervising provider: Osmel Fernandes MD, FACC INDICATION: Chest Pain; HTN Hyperlipidemia Diabetes Dyspnea HISTORY: Gender: F; Age: 80 y/o ; Height: 175.26 cm; Weight: 965.8589009 kg. High Cholesterol; Diabetes; HTN; Chest Pain; SOB; Quit smoking Unknown years ago. COMPARISON: Previous nuclear testing completed MPX at [facility]. ACCESSION NUMBER(S): [id number]; [id number]; [id number] ORDERING CLINICIAN: MONET FERNANDES TECHNIQUE: ONE DAY protocol. Stress injection: Date:01-04-21, 34.3 mCi of Myoview IV 20 seconds after rapid injection of Lexiscan. Rest injection: Date: 01-04-21, 11.5 mCi of Myoview IV at rest. The patient had a rapid injection of 0.4 mg of Lexiscan IV over 10 seconds. Imaging was performed by gated tomographic technique. Reason for Lexiscan: Knee pain STRESS TEST DATA: Resting heart rate was 59 BPM. Resting blood pressure was 120/674 mmHg. Peak blood pressure was 90/58 mmHg. Peak heart rate was 73 BPM. TEST TERMINATED DUE TO: Protocol completed FINDINGS: STRESS TEST RESULTS: Resting electrocardiogram revealed normal sinus rhythm without ST-T changes. There were no significant ischemic ECG changes or dysrhythmias. The patient did not have chest pains/symptoms during procedure. There was a normal recovery phase. IMAGING RESULTS: Image quality was good. Rest and stress tomographic images were reviewed and revealed normal perfusion without evidence of ischemia, myocardial infarction, or left ventricular dilatation with stress. Overall left ventricular systolic function appeared to be normal without regional wall motion abnormalities. Ejection fraction was 73%. TID is 0.88 and is normal. There were no evidence of attenuation artifact. IMPRESSION: Normal Lexiscan Myoview cardiac perfusion stress test. No evidence of ischemia or myocardial infarction by perfusion imaging. Normal left ventricular systolic function, ejection fraction 73%. No previous study available for comparison. Electronically signed by: SARAH HODGES MD [facility] Vital Signs Date Time Vital Sign Value Performing Clinician Facility 08-12-2023 14:20-0500 Body height 180.34 cm [facility] Other [facility] Other 08-12-2023 14:20-0500 Body mass index (BMI) [Ratio] 32.21 kg/m2 [facility] Other [facility] Other 08-12-2023 14:20-0500 Body weight 104.78 kg [facility] Other [facility] Other 04-15-2023 14:40-0400 Body height 180.34 cm Ayanna Vicente Other [facility] Other 04-15-2023 14:40-0400 Body mass index (BMI) [Ratio] 33.61 kg/m2 Ayanna Earleabbi Other [facility] Other 04-15-2023 14:40-0400 Body temperature 98.8 [degF] Ayanna Earleabbi Other [facility] Other 04-15-2023 14:40-0400 Body weight 109.32 kg Ayanna Sakina Other [facility] Other 04-15-2023 14:40-0400 Diastolic blood pressure 82 mm[Hg] Ayanna Vicente Other [facility] Other 04-15-2023 14:40-0400 Respiratory rate 18 /min Ayanna Vicente Other [facility] Other 04-15-2023 14:40-0400 SaO2% (BldA) [Mass fraction] 93 % Ayanna Sakina Other [facility] Other 04-15-2023 14:40-0400 Systolic blood pressure 128 mm[Hg] Ayanna Earleabbi Other [facility] Other 02-25-2023 14:40-0400 Body height 180.34 cm Ayanna Vicente Other [facility] Other 02-25-2023 14:40-0400 Body mass index (BMI) [Ratio] 32.91 kg/m2 Ayanna Earleabbi Other [facility] Other 02-25-2023 14:40-0400 Body temperature 97.9 [degF] Ayanna Vicente Other [facility] Other 02-25-2023 14:40-0400 Body weight 107.05 kg Ayanna Vicente Other [facility] Other 02-25-2023 14:40-0400 Diastolic blood pressure 84 mm[Hg] Ayanna Vicente Other [facility] Other 02-25-2023 14:40-0400 Respiratory rate 18 /min Ayanna Vicente Other [facility] Other 02-25-2023 14:40-0400 SaO2% (BldA) [Mass fraction] 94 % Ayanna Vicente Other [facility] Other 02-25-2023 14:40-0400 Systolic blood pressure 122 mm[Hg] Ayanna Vicente Other [facility] Other 02-11-2023 11:35-0400 Blood Pressure Location [facility] 02-11-2023 11:35-0400 Diastolic blood pressure 67 mm[Hg] [facility] 02-11-2023 11:35-0400 Heart rate 70 /min [facility] 02-11-2023 11:35-0400 Systolic blood pressure 100 mm[Hg] [facility] 02-07-2023 13:28-0400 Body height 177.8 cm Francine Lares MD Work Phone: [facility] 02-07-2023 13:28-0400 Body temperature 97.3 [degF] Francine Lares MD Work Phone: [facility] 02-07-2023 13:28-0400 Body weight 107.96 kg Francine Lares MD Work Phone: [facility] 02-07-2023 13:28-0400 Diastolic blood pressure 72 mm[Hg] Francine Lares MD Work Phone: [facility] 02-07-2023 13:28-0400 Heart rate 74 /min Francine Lares MD Work Phone: [facility] 02-07-2023 13:28-0400 Respiratory rate 20 /min Francine Lares MD Work Phone: [facility] 02-07-2023 13:28-0400 SaO2% (BldA) [Mass fraction] 93 % Francine Lares MD Work Phone: [facility] 02-07-2023 13:28-0400 Systolic blood pressure 122 mm[Hg] Francine Lares MD Work Phone: [facility] 07-19-2022 12:17-0500 Body height 177.8 cm Francine Lares MD Work Phone: [facility] 07-19-2022 12:17-0500 Body temperature 98.01 [degF] Francine Lares MD Work Phone: [facility] 07-19-2022 12:17-0500 Body weight 105.6 kg Francine Lares MD Work Phone: [facility] 07-19-2022 12:17-0500 Diastolic blood pressure 71 mm[Hg] Francine Lares MD Work Phone: [facility] 07-19-2022 12:17-0500 Heart rate 72 /min Francine Lares MD Work Phone: [facility] 07-19-2022 12:17-0500 Respiratory rate 16 /min Francine Lares MD Work Phone: [facility] 07-19-2022 12:17-0500 SaO2% (BldA) [Mass fraction] 93 % Francine Lares MD Work Phone: [facility] 07-19-2022 12:17-0500 Systolic blood pressure 111 mm[Hg] Francine Lares MD Work Phone: [facility] 04-18-2022 11:58-0400 Body height 177.8 cm Francine Lares MD Work Phone: [facility] 04-18-2022 11:58-0400 Body temperature 97.81 [degF] Francine Lares MD Work Phone: [facility] 04-18-2022 11:58-0400 Body weight 102.69 kg Francine Lares MD Work Phone: [facility] 04-18-2022 11:58-0400 Diastolic blood pressure 68 mm[Hg] Francine Lares MD Work Phone: [facility] 04-18-2022 11:58-0400 Heart rate 70 /min Francine Lares MD Work Phone: [facility] 04-18-2022 11:58-0400 Respiratory rate 16 /min Francine Lares MD Work Phone: [facility] 04-18-2022 11:58-0400 SaO2% (BldA) [Mass fraction] 99 % Francine Lares MD Work Phone: [facility] 04-18-2022 11:58-0400 Systolic blood pressure 127 mm[Hg] Francine Lares MD Work Phone: [facility] 04-04-2022 10:59-0400 Body height 177.8 cm Francine Lares MD Work Phone: [facility] 04-04-2022 10:59-0400 Body temperature 97.11 [degF] Francine Lares MD Work Phone: [facility] 04-04-2022 10:59-0400 Body weight 103.78 kg Francine Lares MD Work Phone: [facility] 04-04-2022 10:59-0400 Diastolic blood pressure 73 mm[Hg] Francine Lares MD Work Phone: [facility] 04-04-2022 10:59-0400 Heart rate 68 /min Francine Lares MD Work Phone: [facility] 04-04-2022 10:59-0400 Respiratory rate 16 /min Francine Lares MD Work Phone: [facility] 04-04-2022 10:59-0400 SaO2% (BldA) [Mass fraction] 95 % Francine Lares MD Work Phone: [facility] 04-04-2022 10:59-0400 Systolic blood pressure 138 mm[Hg] Francine Lares MD Work Phone: [facility] 04-02-2022 14:20-0400 Body height 180.34 cm Ayanna Vicente Other [employer] Other 04-02-2022 14:20-0400 Body mass index (BMI) [Ratio] 31.73 kg/m2 Ayanna Vicente Other [facility] Other 04-02-2022 14:20-0400 Body temperature 97.2 [degF] Ayanna Vicente Other [facility] Other 04-02-2022 14:20-0400 Body weight 103.19 kg Ayanna Vicente Other [facility] Other 04-02-2022 14:20-0400 Diastolic blood pressure 76 mm[Hg] Ayanna Vicente Other [facility] Other 04-02-2022 14:20-0400 Respiratory rate 18 /min Ayanna Vicente Other [facility] Other 04-02-2022 14:20-0400 SaO2% (BldA) [Mass fraction] 96 % Ayanna Vicente Other [facility] Other 04-02-2022 14:20-0400 Systolic blood pressure 120 mm[Hg] Ayanna Vicente Other [facility] Other 02-06-2022 14:20-0400 Body height 180.34 cm Ayanna Vicente Other [facility] Other 02-06-2022 14:20-0400 Body mass index (BMI) [Ratio] 31.94 kg/m2 Ayanna Vicente Other [facility] Other 02-06-2022 14:20-0400 Body temperature 97.4 [degF] Ayanna Vicente Other [facility] Other 02-06-2022 14:20-0400 Body weight 103.87 kg Ayanna Vicente Other [facility] Other 02-06-2022 14:20-0400 Diastolic blood pressure 68 mm[Hg] Ayanna Vicente Other [facility] Other 02-06-2022 14:20-0400 Respiratory rate 18 /min Ayanna Vicente Other [facility] Other 02-06-2022 14:20-0400 SaO2% (BldA) [Mass fraction] 93 % Ayanna Vicente Other [facility] Other 02-06-2022 14:20-0400 Systolic blood pressure 114 mm[Hg] Ayanna Vicente Other [employer] Other 01-26-2022 05:00-0400 Body temperature 97.6 [degF] DO Ayanna Girabbi Work Phone: [facility] 01-26-2022 05:00-0400 Diastolic blood pressure 77 mm[Hg] DO Ayanna Girvin Work Phone: [facility] 01-26-2022 05:00-0400 Heart rate 64 /min DO Ayanna Girvin Work Phone: [facility] 01-26-2022 05:00-0400 Respiratory rate 16 /min DO Ayanna Girvin Work Phone: [facility] 01-26-2022 05:00-0400 SaO2% (BldA) [Mass fraction] 94 % DO Ayanna Girabbi Work Phone: [facility] 01-26-2022 05:00-0400 Systolic blood pressure 116 mm[Hg] DO Ayanna Girabbi Work Phone: [facility] 01-23-2022 06:55-0400 Body height 177.8 cm DO Ayanna Girabbi Work Phone: [facility] 01-20-2022 06:00-0400 Body weight 109.6 kg DO Ayanna Girabbi Work Phone: [facility] 01-15-2022 17:00-0400 Body mass index (BMI) [Ratio] 33 kg/m2 DO Ayanna Girabbi Work Phone: [facility] 01-15-2022 15:40-0400 Body temperature 97.9 [degF] DO Ayanna Girabbi Work Phone: [facility] 01-15-2022 15:40-0400 Diastolic blood pressure 88 mm[Hg] DO Ayanna Girvin Work Phone: [facility] 01-15-2022 15:40-0400 Heart rate 72 /min DO Ayanna Girvin Work Phone: [facility] 01-15-2022 15:40-0400 Respiratory rate 18 /min DO Ayanna Girvin Work Phone: [facility] 01-15-2022 15:40-0400 SaO2% (BldA) [Mass fraction] 95 % DO Ayanna Vicente Work Phone: [facility] 01-15-2022 15:40-0400 Systolic blood pressure 128 mm[Hg] DO Ayanna Vicente Work Phone: [facility] 01-15-2022 05:11-0400 Body weight 107.9 kg DO Ayanna Vicente Work Phone: [facility] 01-13-2022 19:52-0400 Body height 177.8 cm DO Ayanna Vicente Work Phone: [facility] 01-13-2022 19:52-0400 Body mass index (BMI) [Ratio] 34.9 kg/m2 DO Ayanna Vicente Work Phone: [facility] 12-27-2021 11:10-0400 Body height 180.34 cm Ayanna Vicente Other [employer] [facility] [employer] Other 12-27-2021 11:10-0400 Body mass index (BMI) [Ratio] 33.12 kg/m2 Ayanna Vicente Other [employer] Other 12-27-2021 11:10-0400 Body temperature 97.3 [degF] Ayanna Vicnete Other [employer] Other 12-27-2021 11:10-0400 Body weight 107.73 kg Ayanna Vicente Other [employer] Other 12-27-2021 11:10-0400 Diastolic blood pressure 82 mm[Hg] Ayanna Earleabbi Other [employer] Other 12-27-2021 11:10-0400 Respiratory rate 20 /min Ayanna Vicente Other [employer] Other 12-27-2021 11:10-0400 SaO2% (BldA) [Mass fraction] 93 % Ayanna Vicente Other [employer] Other 12-27-2021 11:10-0400 Systolic blood pressure 124 mm[Hg] Ayanna Vicente Other [employer] Other 12-17-2021 12:00-0400 Body height 180.34 cm Ayanna [place]nilton Other [employer] Other 12-17-2021 12:00-0400 Body mass index (BMI) [Ratio] 32.21 kg/m2 Ayanna [place] Other [employer] Other 12-17-2021 12:00-0400 Body weight 104.78 kg Ayanna [place] Other [employer] Other 12-17-2021 12:00-0400 Diastolic blood pressure 56 mm[Hg] Ayanna [place] Other [employer] Other 12-17-2021 12:00-0400 Systolic blood pressure 98 mm[Hg] Ayanna Milner Other [employer] Other 04-04-2021 14:20-0400 Body height 180.34 cm Ayanna Vicente Other [employer] Other 04-04-2021 14:20-0400 Body mass index (BMI) [Ratio] 32.35 kg/m2 Ayanna Vicente Other [employer] Other 04-04-2021 14:20-0400 Body temperature 97.7 [degF] Ayanna Vicente Other [employer] Other 04-04-2021 14:20-0400 Body weight 105.24 kg Ayanna Vicente Other [employer] Other 04-04-2021 14:20-0400 Diastolic blood pressure 70 mm[Hg] Ayanna Vicente Other [employer] Other 04-04-2021 14:20-0400 Respiratory rate 18 /min Ayanna Vicente Other [employer] Other 04-04-2021 14:20-0400 SaO2% (BldA) [Mass fraction] 97 % Ayanna Vicente Other [employer] Other 04-04-2021 14:20-0400 Systolic blood pressure 114 mm[Hg] Ayanna Vicente Other [employer] Other Encounters Encounter Date Encounter Type Care Provider Facility Start: 02-24-2024 ambulatory SUSAN Neil ty:[facility] Start: 08-28-2023 End: 08-28-2023 ambulatory JAMES SMITH Not Available Start: 08-28-2023 Bamboo flowsheet James reis DPM Work Phone: [facility] Start: 08-28-2023 Bamboo flowsheet James reis DPM Work Phone: [facility] Start: 08-28-2023 End: 08-28-2023 Patient encounter procedure James Smith DPM Work Phone: [facility] Comment on above: Onychomycosis (Prima ry Dx); 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 Start: 08-08-2023 End: 08-08-2023 ambulatory FRANCINE GONZALESJAYDONU Facility:[facility] Start: 07-16-2023 End: 07-16-2023 ambulatory Ayanna Vicente Other [facility] Other Start: 07-16-2023 Telephone encounter Ayanna Vicente [facility] [place] Start: 05-12-2023 End: 05-12-2023 ambulatory Junior Butterfield Other [employer] Other Start: 05-12-2023 Telephone encounter Junior Butterfield [facility] [employer] Start: 05-07-2023 End: 05-07-2023 ambulatory Ayanna Vicente Other [facility] Other Start: 05-07-2023 Telephone encounter Ayanna Vicente [facility] [place] Start: 04-29-2023 End: 04-29-2023 ambulatory Ayanna Vicente Other [facility] Other Start: 04-29-2023 Telephone encounter Ayanna Vicente [facility] [place] Start: 04-25-2023 End: 04-25-2023 ambulatory Ayanna Vicente Other [facility] Other Start: 04-25-2023 Telephone encounter Ayanna Vicente [facility] [place] Start: 04-24-2023 End: 04-24-2023 ambulatory Ayanna Vicente Facility:[facility] Start: 04-24-2023 End: 04-24-2023 ambulatory DO Ayanna Vicente Work Phone: [facility] Work Phone: Start: 04-24-2023 End: 04-24-2023 Patient encounter procedure DO Ayanna Vicente Work Phone: [facility] [address] [place] Work Phone: Start: 04-22-2023 End: 04-22-2023 ambulatory Ayanna Vicente Other [employer] Other Start: 04-22-2023 Telephone encounter Ayanna Earleabbi [facility] [place] Start: 04-15-2023 End: 04-15-2023 ambulatory Ayanna Sakina Other [employer] Other Start: 04-15-2023 Office outpatient vi sit 25 minutes Ayanna Vicente [facility] [place] Start: 04-14-2023 End: 04-14-2023 ambulatory Ayanna Vicente Other [employer] Other Start: 04-14-2023 Telephone encounter Ayanna Vicente [facility] [place] Start: 04-09-2023 End: 04-09-2023 ambulatory Ayanna Earlebabi Facility:[facility] Start: 04-09-2023 End: 04-09-2023 ambulatory DO Ayanna Vicente Work Phone: [facility] Work Phone: Start: 04-09-2023 End: 04-09-2023 Patient encounter procedure DO Ayanna Vicente Work Phone: [facility] [place] Work Phone: Start: 02-25-2023 End: 02-25-2023 ambulatory Ayanna Vicente Other [employer] Other Start: 02-25-2023 Office outpatient vi sit 15 minutes Ayanna Vicente [facility] [place] Start: 02-11-2023 End: 02-12-2023 ambulatory SUSAN RANDOLPH Facility:[facility] Start: 02-11-2023 End: 02-11-2023 Patient encounter procedure SUSAN RANDOLPH [facility] [place] Start: 02-07-2023 End: 02-07-2023 ambulatory FRANCINE LARES Facility:[facility] Start: 02-07-2023 End: 02-07-2023 ambulatory Francine Lares MD Work Phone: Hematology/Oncology Comment on above: CLL (chronic lymphoc ytic leukemia) (HCC) (Primary Dx) Start: 02-07-2023 End: 02-07-2023 Patient encounter procedure Francine Lares MD Work Phone: [facility] Start: 01-16-2023 End: 01-16-2023 ambulatory yAanna Vicente Other [facility] Other Start: 01-16-2023 Telephone encounter Ayanna Vicente [facility] Start: 01-15-2023 End: 01-15-2023 ambulatory Ayanna Vicente Other [facility] Other Start: 01-15-2023 Telephone encounter Ayanna Vicente [facility] Start: 01-07-2023 End: 01-07-2023 ambulatory Ayanna Vicente Other [facility] Other Start: 01-07-2023 Telephone encounter Ayanna Vicente [facility] Start: 01-06-2023 End: 01-06-2023 ambulatory Ayanna Vicente Other [employer] Other Start: 01-06-2023 [facility] Start: 11-29-[address] AYANNA VICENTE Facilit y:[facility] Start: 10-16-2022 End: 10-16-2022 ambulatory Ayanna Vicente Other [employer] Other Start: 10-16-2022 Telephone encounter Ayanna Vicente [facility] Start: 10-02-2022 End: 10-02-2022 ambulatory Ayanna Vicente Other [employer] Other Start: 10-02-2022 Telephone encounter Ayanna Vicente [facility] [place] Start: 09-30-2022 End: 09-30-2022 ambulatory Ayanna Vicente Facility:[facility] Start: 09-30-2022 End: 09-30-2022 ambulatory DO Ayanna Sakina Work Phone: [facility] Work Phone: Start: 09-30-2022 End: 09-30-2022 Patient encounter procedure DO Ayanna Sakina Work Phone: [facility] [place] Work Phone: Start: 09-24-2022 End: 09-24-2022 ambulatory Sharda Sheth Facility:[facility] Start: 09-24-2022 End: 09-24-2022 ambulatory DO Ayanna Sakina Work Phone: [facility] Work Phone: Start: 09-24-2022 End: 09-24-2022 Patient encounter procedure DO Ayanna Sakina Work Phone: [facility]-[address] Work Phone: Start: 09-02-2022 End: 09-02-2022 ambulatory Ayanna Vicente Other [employer] Other Start: 09-02-2022 Telephone encounter Ayanna Vicente [facility] [place] Start: 08-29-2022 End: 08-29-2022 ambulatory Francine Janetangie Facility:[facility] Start: 08-29-2022 End: 08-29-2022 Patient encounter procedure DO Ayanna Vicente Work Phone: [facility] Work Phone: Start: 08-29-2022 End: 08-29-2022 ambulatory DO Ayanna Vicente Work Phone: [facility] Work Phone: Start: 08-29-2022 End: 08-29-2022 Patient encounter procedure DO Ayanna Vicente Work Phone: [facility] [address] Work Phone: Start: 08-12-2022 End: 08-12-2022 ambulatory Ayanna Vicente Facility:[facility] Start: 08-12-2022 End: 08-12-2022 ambulatory DO Ayanna Vicente Work Phone: [facility] Work Phone: Start: 08-12-2022 End: 08-12-2022 Patient encounter procedure DO Ayanna Vicente Work Phone: [facility] [place] Work Phone: Start: 08-05-2022 End: 08-05-2022 ambulatory Ayanna Vicente Other [employer] Other Start: 08-05-2022 Telephone encounter Ayanna Vicente [facility] [place] Start: 08-02-2022 ambulatory Ayanna Vel Vicente Faci lity:[id number] Start: 07-24-2022 End: 07-24-2022 ambulatory Ayanna Vicente Facility:[facility] Start: 07-24-2022 End: 07-24-2022 ambulatory DO Ayanna Vicente Work Phone: [facility] Work Phone: Start: 07-24-2022 End: 07-24-2022 Patient encounter procedure DO Ayanna Vicente Work Phone: [facility]-Electrodiagnostics Work Phone: Start: 07-19-2022 Telephone encounter Francine justice MD Work Phone: [facility] Comment on above: Referral Information (ENT) Start: 07-19-2022 End: 07-19-2022 ambulatory Francine Lares MD Work Phone: Hematology/Oncology Comment on above: CLL (chronic lymphoc ytic leukemia) (HCC) (Primary Dx); Right ear pain; Rib pain; Axillary adenopathy; Other signs and symptoms in breast ; Encounter for screening mammogram for malignant neoplasm of breast Start: 07-19-2022 End: 07-19-2022 Patient encounter procedure Francine Lares MD Work Phone: [place] Start: 05-31-2022 End: 05-31-2022 ambulatory Ayanna Vicente Other [facility] Other Start: 05-31-2022 Telephone encounter Ayanna Vicente [facility] [place] Start: 05-14-2022 End: 05-14-2022 ambulatory Ayanna Vicente Other [employer] Other Start: 05-14-2022 Telephone encounter Ayanna Vicente [facility] [place] Start: 04-24-2022 End: 04-24-2022 ambulatory Ayanna Vicente Other [facility] Other Start: 04-24-2022 Telephone encounter Ayanna Vicente [facility] [place] Start: 04-23-2022 Telephone encounter Ayanna Vicente [facility] [place] Start: 04-23-2022 End: 04-23-2022 ambulatory DO Ayanna Vicente Work Phone: [employer] Other Start: 04-23-2022 End: 04-23-2022 Patient encounter procedure DO Ayanna Vicente Work Phone: [facility] [place] Start: 04-18-2022 End: 04-18-2022 ambulatory Francine Lares MD Work Phone: Hematology/Oncology Comment on above: CLL (chronic lymphoc ytic leukemia) (HCC) (Primary Dx) Start: 04-18-2022 End: 04-18-2022 Patient encounter procedure Francine Lares MD Work Phone: [facility] Start: 04-10-2022 End: 04-10-2022 ambulatory Ayanna Vicente Other [employer] Other Start: 04-10-2022 Telephone encounter Ayanna Vicente [facility] [place] Start: 04-05-2022 Telephone encounter Niurka Hood Hematology/Oncology Comment on above: Care Coordination (R esults) Start: 04-04-2022 End: 04-04-2022 ambulatory Francine Lares MD Work Phone: Hematology/Oncology Comment on above: Lymphocytosis (Prima ry Dx) Start: 04-04-2022 End: 04-04-2022 Patient encounter procedure Francine Lares MD Work Phone: [facility] Start: 04-02-2022 End: 04-02-2022 ambulatory Ayanna Vicente Other [facility] Other Start: 04-02-2022 Office outpatient vi sit 40 minutes Ayanna Vicente [facility] [place] Start: 04-01-2022 End: 04-01-2022 Patient encounter procedure DO Ayanna Vicente Work Phone: [facility] [place] Start: 03-26-2022 End: 03-26-2022 ambulatory Ayanna Vicente Other [employer] Other Start: 03-26-2022 Telephone encounter Ayanna Vicente [facility] [place] Start: 03-19-2022 End: 03-19-2022 ambulatory Ayanna Vicente Other [employer] Other Start: 03-19-2022 Telephone encounter Ayanna Vicente [facility] [place] Start: 03-13-2022 End: 03-13-2022 ambulatory Ayanna Vicente Other [employer] Other Start: 03-13-2022 Telephone encounter Ayanna Vicente [facility] [place] Start: 03-08-2022 End: 03-08-2022 ambulatory Ayanna Vicente Other [employer] Other Start: 03-08-2022 Telephone encounter Ayanna Vicente [facility] [place] Start: 03-07-2022 End: 03-07-2022 ambulatory Ayanna Vicente Other [facility] Other Start: 03-07-2022 Telephone encounter Ayanna Vicente [facility] [place] Start: 02-28-2022 End: 02-28-2022 ambulatory Ayanna Vicente Other [facility] Other Start: 02-28-2022 Telephone encounter Ayanna Vicente [facility] [place] Start: 02-21-2022 End: 02-21-2022 ambulatory Ayanna Vicente Other [facility] Other Start: 02-21-2022 Telephone encounter Ayanna Vicente [facility] [place] Start: 02-18-2022 End: 02-18-2022 ambulatory Ayanna Vicente Other [facility] Other Start: 02-18-2022 Telephone encounter Ayanna Vicente [facility] [place] Start: 02-15-2022 End: 02-15-2022 ambulatory Ayanna Vicente Other [facility] Other Start: 02-15-2022 Telephone encounter Ayanna Vicente [facility] [place] Start: 02-11-2022 End: 02-11-2022 ambulatory Ayanna Vicente Other [facility] Other Start: 02-11-2022 Telephone encounter Ayanna Vicente [facility] [place] Start: 02-06-2022 End: 02-06-2022 ambulatory Ayanna Vicente Other [employer] Other Start: 02-06-2022 Office outpatient vi sit 25 minutes Ayanna Vicente [facility] [place] Start: 01-31-2022 End: 01-31-2022 ambulatory Ayanna Vicente Other [employer] Other Start: 01-31-2022 Telephone encounter Ayanna Vicente [facility] [place] Start: 01-15-2022 End: 01-26-2022 Evaluation and management of inpatient DO Ayanna Vicente Work Phone: [facility] Start: 01-13-2022 End: 01-15-2022 Evaluation and management of inpatient DO Ayanna Earleabbi Work Phone: [facility] Start: 01-07-2022 End: 01-07-2022 ambulatory Ayanna Vicente Other [facility] Other Start: 01-07-2022 Telephone encounter Ayanna Vicente [facility] [place] Start: 12-27-2021 End: 12-27-2021 ambulatory Ayanna Vicente Other [facility] Other Start: 12-27-2021 Office outpatient vi sit 15 minutes Ayanna Vicente [facility] [place] Start: 12-19-2021 End: 12-19-2021 ambulatory Ayanna Vicente Other [facility] Other Start: 12-19-2021 Telephone encounter Ayanna Vicente [facility] [place] Start: 12-18-2021 End: 12-18-2021 ambulatory Ayanna Milner Other [facility] Other Start: 12-18-2021 Telephone encounter Ayanna Milner [facility] Start: 12-17-2021 End: 12-17-2021 ambulatory Ayanna Milner Other [facility] Other Start: 12-17-2021 Office outpatient ne w 45 minutes Ayanna Milner [facility] Start: 11-12-2021 End: 11-12-2021 ambulatory Ayanna Vicente Other [facility] Other Start: 11-12-2021 Telephone encounter Ayanna Vicente [facility] [place] Start: 10-02-2021 End: 10-02-2021 ambulatory Ayanna Vicente Other [facility] Other Start: 10-02-2021 Telephone encounter Ayanna Vicente [facility] [place] Start: 10-01-2021 End: 10-01-2021 ambulatory Ayanna Vicente Other [facility] Other Start: 10-01-2021 Telephone encounter Ayanna Vicente [facility] [place] Start: 09-17-2021 End: 09-17-2021 ambulatory Ayanna Vicente Other [facility] Other Start: 09-17-2021 Telephone encounter Ayanna Vicente [facility] [place] Start: 09-13-2021 End: 09-13-2021 ambulatory Ayanna Vicente Other [facility] Other Start: 09-13-2021 Telephone encounter Ayanna Vicente [facility] [place] Start: 09-12-2021 End: 09-12-2021 ambulatory Ayanna Vicente Other [facility] Other Start: 09-12-2021 Telephone encounter Ayanna Vicente [facility] [place] Start: 07-18-2021 End: 07-18-2021 ambulatory Ayanna Vicente Other [facility] Other Start: 07-18-2021 Telephone encounter Ayanna Vicente [facility] [place] Start: 06-18-2021 End: 06-18-2021 ambulatory Ayanna Vicente Other [facility] Other Start: 06-18-2021 Telephone encounter Ayanna Vicente [facility] [place] Start: 04-24-2021 Telephone encounter Ayanna Earleabbi [facility] Start: 04-04-2021 Office outpatient vi sit 25 minutes Ayanna Earleabbi [facility] Start: 02-08-2021 End: 02-08-2021 Orders Only Dale Darielagaurav RK Work Phone: Orthopaedics Comment on above: Pain in both knees, unspecified chronicity (Primary Dx) Procedures Date Procedure Procedure Detail Performing Clinician Start: 04-24-2023 Plain x-ray of pelvi s and lower extremity DO Ayanna Vicente Work Phone: Start: 04-24-2023 X-ray of lumbar spin e, four views DO Ayanna Vicente Work Phone: Start: 04-24-2023 X-ray of right knee DO Ayanna Vicente Work Phone: Start: 09-24-2022 MRI of cervical spin e without contrast DO Ayanna Vicente Work Phone: Start: 09-24-2022 XR pre/post mri xray DO Ayanna Vicente Work Phone: Start: 08-29-2022 Ultrasonography of l eft breast DO Ayanna Vicente Work Phone: Start: 08-29-2022 Bilateral mammography D O Ayanna Vicente Work Phone: Start: 08-29-2022 MR lumbar spine wo con DO Ayanna Vicente Work Phone: Start: 08-29-2022 XR pre/post mri xray DO Ayanna Vicente Work Phone: Start: 08-12-2022 Plain chest X-ray DO Da peri Vicente Work Phone: Start: 04-04-2022 CBC + DIFF Francine justice MD Work Phone: Start: 04-04-2022 Lactate dehydrogenase ldh Francine Lares MD Work Phone: Start: 01-21-2022 Duplex scan of lower limb veins DO Ayanna Earleabbi Work Phone: Start: 01-21-2022 Plain X-ray of right hip DO Ayanna Vicente Work Phone: Start: 01-14-2022 Ultrasonography of b ilateral kidneys DO Ayanna Vicente Work Phone: Start: 01-13-2022 CT cervical spine wi thout contrast DO Ayanna Vicente Work Phone: Start: 01-13-2022 CT of head without contrast DO Ayanna Vicente Work Phone: Start: 01-13-2022 Plain chest X-ray DO Vasile Vicente Work Phone: Start: 01-13-2022 Plain X-ray of right wrist DO Ayanna Vicente Work Phone: Start: 01-13-2022 Plain X-ray of right tibia and right fibula DO Ayanna Vicente Work Phone: Start: 08-30-2021 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 SUSAN RANDOLPH Start: 01-01-2021 Cystoscopy SUSAN MAGAÑA Start: 07-14-2016 History of operative procedure on lumbar spinal structure SUSAN RANDOLPH Start: 07-14-2009 Arthroplasty of knee DAYDAY RANDOLPH Start: 07-14-1999 Arthroplasty of knee DAYDAY RANDOLPH Start: 07-14-1997 History of hernia repair SUSAN RANDOLPH Start: 07-14-1995 Appendectomy SUSAN MAGAÑA Start: 07-14-1991 History of hernia repair SUSAN RANDOLPH Start: 07-14-1984 H/O: hysterectomy SUKUMAR RANDOLPH Bilateral inguinal h ernia repair SUSAN RANDOLPH Blood culture for ba cteria, including anaerobic screen DO Ayanna Vicente Work Phone: Colonoscopy SUSAN RANDOLPH Extraction of cataract SUKUMAR RANDOLPH History of hernia repair HEATHER RANDOLPH SARS Antigen (LFIA) DO Ayanna Vicente Work Phone: Urine culture DO Ayanna thomas Work Phone: Plan of Treatment Date Care Activity Detail Author Start: 02-07-2026 DIABETES SCREEN DIABETES SCREEN [facility] Start: 07-19-2025 DIABETES SCREEN DIABETES SCREEN [facility] Start: 11-17-2023 End: 11-17-2023 Patient encounter procedure 11/17/2023 1:15 PM EDT Procedure Visit [facility] [address] [place] [id number] James Smith DPM [address] [place] [address] [facility] Start: 08-10-2023 End: 10-10-2023 CBC W Auto Differential panel - Blood CBC + DIFF Lab Routine CLL (chronic lymphocytic leukemia) (HCC) Expected: 08/10/2023 (Approximate), Expires: 10/10/2023 [facility] Work Phone: Comment on above: Expected: 08/10/2023 (Approximate), Expires: 10/10/2023 Start: 08-10-2023 End: 10-10-2023 Comprehensive metabolic 2000 panel - Serum or Plasma COMP METABOLIC PANEL Lab Routine CLL (chronic lymphocytic leukemia) (HCC) Expected: 08/10/2023 (Approximate), Expires: 10/10/2023 [facility] Work Phone: Comment on above: Expected: 08/10/2023 (Approximate), Expires: 10/10/2023 Start: 03-14-2023 Influenza vaccination [facility] Start: 01-16-2023 End: 03-18-2023 CBC W Auto Differential panel - Blood CBC + DIFF Lab Routine CLL (chronic lymphocytic leukemia) (HCC) Expected: 01/16/2023 (Approximate), Expires: 03/18/2023 [facility] Work Phone: Comment on above: Expected: 01/16/2023 (Approximate), Expires: 03/18/2023 Start: 01-16-2023 End: 03-18-2023 Comprehensive metabolic 2000 panel - Serum or Plasma COMP METABOLIC PANEL Lab Routine CLL (chronic lymphocytic leukemia) (HCC) Expected: 01/16/2023 (Approximate), Expires: 03/18/2023 [facility] Work Phone: Comment on above: Expected: 01/16/2023 (Approximate), Expires: 03/18/2023 Start: 08-19-2022 COVID-19 VACCINE (5 - Pfizer series) COVID-19 VACCINE (5 - Pfizer series) [facility] Start: 07-26-2022 End: 08-18-2023 Us breast uni real time with image limited US BREAST LTD LT Radiology Routine Axillary adenopathy Other signs and symptoms in breast Expected: 07/26/2022, Expires: 08/18/2023 [facility] Work Phone: Comment on above: Expected: 07/26/2022 , Expires: 08/18/2023 Start: 07-19-2022 End: 09-18-2022 CBC W Auto Differential panel - Blood CBC + DIFF Lab Routine CLL (chronic lymphocytic leukemia) (HCC) Expected: 07/19/2022 (Approximate), Expires: 09/18/2022 [facility] Work Phone: Comment on above: Expected: 07/19/2022 (Approximate), Expires: 09/18/2022 Start: 07-19-2022 End: 09-18-2022 Comprehensive metabolic 2000 panel - Serum or Plasma COMP METABOLIC PANEL Lab Routine CLL (chronic lymphocytic leukemia) (HCC) Expected: 07/19/2022 (Approximate), Expires: 09/18/2022 [facility] Work Phone: Comment on above: Expected: 07/19/2022 (Approximate), Expires: 09/18/2022 Start: 07-19-2022 End: 09-18-2022 Lactate dehydrogenase [Enzymatic activity/volume] in Serum or Plasma LD LACTATE DEHYDRO Lab Routine CLL (chronic lymphocytic leukemia) (HCC) Expected: 07/19/2022 (Approximate), Expires: 09/18/2022 [facility] Work Phone: Comment on above: Expected: 07/19/2022 (Approximate), Expires: 09/18/2022 Start: 07-14-2022 ADVANCE DIRECTIVE DISCUSSION ADVANCE DIRECTIVE DISCUSSION [facility] Start: 07-14-2022 DEPRESSION ASSESSMENT DEPRESSION ASS ESSMENT [facility] Start: 04-04-2022 End: 06-04-2022 [id number] [Mass/volume] in Serum or Plasma [facility] Work Phone: Comment on above: Expected: 04/04/2022 , Expires: 06/04/2022 Start: 04-04-2022 End: 06-04-2022 Chronic hepatitis differentiation between hepatitis B and C virus panel - Serum or Plasma [facility] Work Phone: Comment on above: Expected: 04/04/2022 , Expires: 06/04/2022 Start: 04-04-2022 End: 06-04-2022 FLOW CYTOMETRY PERIPHERAL BLOOD LEUK/LYMPH (FCLEUK) [facility] Work Phone: Comment on above: Expected: 04/04/2022 , Expires: 06/04/2022 Start: 03-14-2022 Influenza vaccination INFLUENZA (#1) [facility] Start: 01-24-2022 [facility] Start: 01-21-2022 Consultation [facility] Start: 01-15-2022 Hospital admission [facility] Start: 01-15-2022 Referral to clinical laundry aide [facility] Start: 01-15-2022 [facility] Work Phone: Start: 01-13-2022 Hospital admission [facility] Work Phone: Start: 07-27-2021 COVID-19 VACCINE (4 - Booster for Pfizer series) COVID-19 VACCINE (4 - Booster for Pfizer series) [facility] Start: 07-14-2021 ADVANCE DIRECTIVE DISCUSSION ADVANCE DIRECTIVE DISCUSSION [facility] Start: 07-14-2021 DEPRESSION ASSESSMENT DEPRESSION ASS ESSMENT [facility] Start: 03-14-2021 Influenza vaccination INFLUENZA (#1) [facility] Start: 2007 ADVANCE DIRECTIVE DISCUSSION ADVANCE DIRECTIVE DISCUSSION [facility] Start: 2007 BONE DENSITY BONE DENSITY [facility] Start: 2007 PNEUMOCOCCAL: 65+ (1 - PCV) PNEUMOCOCCAL: 65+ (1 - PCV) [facility] Start: 2007 PNEUMOVAX AGE 65 AND OVER WITH 5YR LOOKBACK (#1) PNEUMOVAX AGE 65 AND OVER WITH 5YR LOOKBACK (#1) [facility] Start: 1992 Screening for malign ant neoplasm of colon [facility] Start: 1992 SHINGRIX VACCINE (1 of 2) RODRIGUEZ GRIX VACCINE (1 of 2) [facility] Start: 1987 DIABETES SCREEN DIABETES SCREEN [facility] Start: 1961 SHINGRIX VACCINE (1 of 2) RODRIGUEZ GRIX VACCINE (1 of 2) [facility] Start: 1961 Urine microalbumin profile DTAP,TDAP,TD (1 - Tdap) [facility] Start: 1960 HEPATITIS C SCREENING HEPATITIS C [facility] Start: 1954 Adult depression screening assessment DEPRESSION SCREENING [facility] Start: 1954 COVID-19 VACCINE (1) COVID-19 VACCIN E (1) [facility] Start: 1948 PNEUMOCOCCAL: 65+ (1 - PCV) PNEUMOCOCCAL: 65+ (1 - PCV) [facility] CBC W Auto Different ial panel - Blood CBC + DIFF Lab Routine Lymphocytosis 04/04/2022 11:00 AM EDT [facility] Work Phone: FLOW CYTOMETRY PERIP HERAL BLOOD LEUK/LYMPH (FCLEUK) FLOW CYTOMETRY PERIPHERAL BLOOD LEUK/LYMPH (FCLEUK) Lab Routine Lymphocytosis 04/04/2022 11:02 AM EDT [facility] Work Phone: FLOW SLIDE FLOW SLIDE Lab R outine Lymphocytosis 04/04/2022 11:02 AM EDT [facility] Work Phone: Hepatitis B virus co re Ab [Presence] in Serum HEP B CORE AB TOTAL Lab Routine Lymphocytosis 04/04/2022 11:00 AM EDT [facility] Work Phone: Hepatitis B virus noe rface Ab [Presence] in Serum HEP B SURF AB QUAL Lab Routine Lymphocytosis 04/04/2022 11:00 AM EDT [facility] Work Phone: Hepatitis B virus noe rface Ab [Presence] in Serum by Immunoassay HEP B SURF AG SCRN Lab Routine Lymphocytosis 04/04/2022 11:00 AM EDT [facility] Work Phone: Hepatitis C virus Ab [Presence] in Serum HEP C AB IA W/CONF SCRN Lab Routine Lymphocytosis 04/04/2022 [facility] End: 08-18-2023 SONYA SCREENING W NEYDA SONYA SCREENING W NEYDA Radiology Routine Encounter for screening mammogram for malignant neoplasm of breast 1 Occurrences starting 07/19/2022 until 08/18/2023 [facility] Work Phone: Comment on above: 1 Occurrences starti ng 07/19/2022 until 08/18/2023 Patient Education Wrist Fracture (DC) [facility] Work Phone: Patient referral [facility] Work Phone: End: 03-10-2022 Radiologic exam knee complete 4/more views XR KNEE GENERAL 4V AP BOTH/PA BOTH/LAT/MERC BILAT Radiology Routine Pain in both knees, unspecified chronicity 1 Occurrences starting 02/08/2021 until 03/10/2022 [facility] Comment on above: 1 Occurrences starti ng 02/08/2021 until 03/10/2022 End: 03-10-2022 Radiologic examination pelvis 1/2 views XR PELVIS 1V AP Radiology Routine Pain in both knees, unspecified chronicity 1 Occurrences starting 02/08/2021 until 03/10/2022 [facility] Comment on above: 1 Occurrences starti ng 02/08/2021 until 03/10/2022 Serum fructosamine measurement [facility] Work Phone: End: 08-18-2023 XR RIBS/CHEST 3V AP RIB/OBLS/CXR LEFT XR RIBS/CHEST 3V AP RIB/OBLS/CXR LEFT Radiology Routine Rib pain 1 Occurrences starting 07/19/2022 until 08/18/2023 [facility] Work Phone: Comment on above: 1 Occurrences starti ng 07/19/2022 until 08/18/2023 [facility] Immunizations Immunization Date Immunization Notes Care Provider Fa myrnaty 04-15-2023 influenza, high dose seasonal, preservative-free Ayanna Vicente Other [facility] [employer] Other 04-15-2023 influenza virus vaccine, unspecified formulation James Smith DPM Work Phone: [facility] 04-22-2022 pneumococcal polysaccharide vaccine, 23 valent Ayanna Vicente Other [facility] [employer] Other 01-13-2022 tetanus toxoid, redu paola diphtheria toxoid, and acellular pertussis vaccine, adsorbed Ayanna Vicente Other [facility] 06-01-2021 COVID-19 Vaccine Pfi zer - Documentation Purposes Only Ayanna Vicente Other [place] [employer] Other 04-25-2021 influenza virus vaccine, unspecified formulation SUSAN RANDOLPH [facility] 04-04-2021 influenza, high dose seasonal, preservative-free Ayanna Vicente Other [place] [employer] Other 04-04-2021 Influenza, High-dose Seasonal, Quadrivalent, Preservative Free James Smith DPM Work Phone: [facility] [employer] 09-01-2020 COVID-19 Vaccine Pfi zer - Documentation Purposes Only Ayanna Vicente Other [employer] Other 09-01-2020 SARS-CoV-2 (COVID-19 ) mRNA-1273 vaccine SUSAN RANDOLPH [facility] 08-11-2020 COVID-19 Vaccine Pfi zer - Documentation Purposes Only Ayanna Vicente Other [employer] Other 08-11-2020 SARS-CoV-2 (COVID-19 ) mRNA-1273 vaccine SUSAN RANDOLPH [facility] 03-14-2020 influenza virus vaccine, unspecified formulation SUSAN RANDOLPH [facility] 04-03-2019 pneumococcal polysaccharide vaccine, 23 valent Ayanna Vicente Other [employer] Other 04-03-2019 influenza, seasonal, injectable Ayanna Vicente Other [employer] Other 05-25-2018 influenza, seasonal, injectable Ayanna Vicente Other [employer] Other 04-22-2018 Kenalog -40 mg Ayanna Vicente Other [employer] Other Payers Date Payer Category Payer Unknown [id number] 2022 Self-pay [id number] 2020 Private Health Insurance [facility] AARP SUPPLEMENT [id number] 2020-Present Indemnity [id number] 2020 Private Health Insurance [facility] AAR SUPPLEMENT [id number] 2020-Present [phone] [address] [place] [address] Indemnity [id number] 2007 Medicare MEDICARE MEDICAR E A AND B [id number] 2007-Present [place] Medicare [id number] 2007 Medicare [id number] 1959 Medicare [id number] 1959 Unknown [id number] 1942 Unknown [id number] 1942 Unknown [id number] 1942 Unknown [id number] 1942 Unknown [id number] 1942 Unknown [id number] 1942 Unknown [id number] .196 Unknown [id number] .[id number] Unknown [id number] .[id number] Unknown [id number] .[id number] Unknown [id number] .[id number] Unknown [id number] .[id number] Unknown [id number] .[id number] Unknown [id number] .[id number] Unknown [id number] Social History Date Type Detail Facility Start: 02-20-2004 End: 01-21-2022 Tobacco smoking status WIIS Former smoker [facility] Comment on above: quit smoking in 1984 End: 07-14-1999 History of tobacco use Current smoker [facility] Work Phone: Start: 02-20-2004 Alcohol intake Not Asked [facility] Start: 1940 Sex Assigned At Not on file [facility] Start: 02-07-2023 End: 08-28-2023 Sex Assigned At [facility] Start: 1940 Sex Assigned At Female F [facility] End: 07-14-1999 History of tobacco use Cigarette Smoker [facility] Start: 04-04-2022 End: 08-28-2023 Cigarettes smoked current (pack per day) - Reported 1.5 [facility] Start: 04-04-2022 Tobacco use and exposure Smokeless tobacco non-user [facility] Start: 04-04-2022 End: 02-07-2023 Alcohol intake Ex-drinker (finding) [facility] Start: 03-25-2022 End: 04-18-2022 Exposure to SARS-CoV-2 (event) Not sure [facility] Adult Depression Screening Assessment 0 [facility] Start: 12-07-2022 Tobacco smoking stat us WIIS Never smoked tobacco [facility] Start: 08-21-2023 End: 08-28-2023 Alcohol intake Current drinker of alcohol (finding) [facility] Start: 12-07-2022 Alcohol Comment Alcohol: 1-2 d rinks occasionally. Caffeine: 3-4 cups/day coffee [facility] Medical Equipment Procedure Code Equipment Code Equipment Origin al Text Equipment Identifier Dates Start: 01-27-2015 ALLOGRAFT FUSELO X LUMBAR FDA Start: 03-24-2017 NUVASIVE RELINE SCREW FDA Start: 03-24-2017 NUVASIVE RELINE SCREW FDA Start: 03-24-2017 NUVASIVE RELINE SCREW FDA Start: 03-24-2017 NUVASIVE RELINE SCREW FDA Start: 03-24-2017 NUVASIVE KAREEM FDA Start: 03-24-2017 NUVASIVE KAREEM FDA Start: 03-24-2017 OSTEOAMP GRANULE S 10CC FDA Start: 03-24-2017 ALLOGRAFT FUSELO X LUMBAR FDA Start: 03-24-2017 [place] One Level Deformity FDA Start: 03-24-2017 CANCELLOUS 15CC CRUSHED FDA Start: 03-24-2017 CROSSLINK CAPLOX II MED/LG FDA Start: 03-24-2017 NUVASIVE LOCK SCREWS FDA Star t: 03-24-2017 NUVASIVE LOCK SCREWS FDA Star t: 03-24-2017 NUVASIVE LOCK SCREWS FDA Star t: 03-24-2017 NUVASIVE LOCK SCREWS FDA Star t: 03-24-2017 ALLOGRAFT FUSELO X LUMBAR FDA Start: 03-24-2017 NUVASIVE RELINE SCREW FDA Start: 03-24-2017 NUVASIVE RELINE SCREW FDA Start: 03-24-2017 NUVASIVE RELINE SCREW FDA Start: 03-24-2017 NUVASIVE RELINE SCREW FDA Start: 03-24-2017 NUVASIVE KAREEM FDA Start: 03-24-2017 NUVASIVE KAREEM FDA Start: 03-24-2017 OSTEOAMP GRANULE S 10CC FDA Start: 03-24-2017 ALLOGRAFT FUSELO X LUMBAR FDA Start: 03-24-2017 [place] One Level Deformity FDA Start: 03-24-2017 CANCELLOUS 15CC CRUSHED FDA Start: 03-24-2017 CROSSLINK CAPLOX II MED/LG FDA Start: 03-24-2017 NUVASIVE LOCK SCREWS FDA Star t: 03-24-2017 NUVASIVE LOCK SCREWS FDA Star t: 03-24-2017 NUVASIVE LOCK SCREWS FDA Star t: 03-24-2017 NUVASIVE LOCK SCREWS FDA Star t: 03-24-2017 ALLOGRAFT FUSELO X LUMBAR FDA Start: 03-24-2017 NUVASIVE RELINE SCREW FDA Start: 03-24-2017 NUVASIVE RELINE SCREW FDA Start: 03-24-2017 NUVASIVE RELINE SCREW FDA Start: 03-24-2017 NUVASIVE RELINE SCREW FDA Start: 03-24-2017 NUVASIVE KAREEM FDA Start: 03-24-2017 NUVASIVE KAREEM FDA Start: 03-24-2017 OSTEOAMP GRANULE S 10CC FDA Start: 03-24-2017 ALLOGRAFT FUSELO X LUMBAR FDA Start: 03-24-2017 [place] One Level Deformity FDA Start: 03-24-2017 CANCELLOUS 15CC CRUSHED FDA Start: 03-24-2017 CROSSLINK CAPLOX II MED/LG FDA Start: 03-24-2017 NUVASIVE LOCK SCREWS FDA Star t: 03-24-2017 NUVASIVE LOCK SCREWS FDA Star t: 03-24-2017 NUVASIVE LOCK SCREWS FDA Star t: 03-24-2017 NUVASIVE LOCK SCREWS FDA Star t: 03-24-2017 ALLOGRAFT FUSELO X LUMBAR FDA Start: 03-24-2017 NUVASIVE RELINE SCREW FDA Start: 03-24-2017 NUVASIVE RELINE SCREW FDA Start: 03-24-2017 NUVASIVE RELINE SCREW FDA Start: 03-24-2017 NUVASIVE RELINE SCREW FDA Start: 03-24-2017 NUVASIVE KAREEM FDA Start: 03-24-2017 NUVASIVE KAREEM FDA Start: 03-24-2017 OSTEOAMP GRANULE S 10CC FDA Start: 03-24-2017 ALLOGRAFT FUSELO X LUMBAR FDA Start: 03-24-2017 [place] One Level Deformity FDA Start: 03-24-2017 CANCELLOUS 15CC CRUSHED FDA Start: 03-24-2017 CROSSLINK CAPLOX II MED/LG FDA Start: 03-24-2017 NUVASIVE LOCK SCREWS FDA Star t: 03-24-2017 NUVASIVE LOCK SCREWS FDA Star t: 03-24-2017 NUVASIVE LOCK SCREWS FDA Star t: 03-24-2017 NUVASIVE LOCK SCREWS FDA Star t: 03-24-2017 ALLOGRAFT FUSELO X LUMBAR FDA Start: 03-24-2017 NUVASIVE RELINE SCREW FDA Start: 03-24-2017 NUVASIVE RELINE SCREW FDA Start: 03-24-2017 NUVASIVE RELINE SCREW FDA Start: 03-24-2017 NUVASIVE RELINE SCREW FDA Start: 03-24-2017 NUVASIVE KAREEM FDA Start: 03-24-2017 NUVASIVE KAREEM FDA Start: 03-24-2017 OSTEOAMP GRANULE S 10CC FDA Start: 03-24-2017 ALLOGRAFT FUSELO X LUMBAR FDA Start: 03-24-2017 [place] One Level Deformity FDA Start: 03-24-2017 CANCELLOUS 15CC CRUSHED FDA Start: 03-24-2017 CROSSLINK CAPLOX II MED/LG FDA Start: 03-24-2017 NUVASIVE LOCK SCREWS FDA Star t: 03-24-2017 NUVASIVE LOCK SCREWS FDA Star t: 03-24-2017 NUVASIVE LOCK SCREWS FDA Star t: 03-24-2017 NUVASIVE LOCK SCREWS FDA Star t: 03-24-2017 ALLOGRAFT FUSELO X LUMBAR FDA Start: 03-24-2017 NUVASIVE RELINE SCREW FDA Start: 03-24-2017 NUVASIVE RELINE SCREW FDA Start: 03-24-2017 NUVASIVE RELINE SCREW FDA Start: 03-24-2017 NUVASIVE RELINE SCREW FDA Start: 03-24-2017 NUVASIVE KAREEM FDA Start: 03-24-2017 NUVASIVE KAREEM FDA Start: 03-24-2017 OSTEOAMP GRANULE S 10CC FDA Start: 03-24-2017 ALLOGRAFT FUSELO X LUMBAR FDA Start: 03-24-2017 [place] One Level Deformity FDA Start: 03-24-2017 CANCELLOUS 15CC CRUSHED FDA Start: 03-24-2017 CROSSLINK CAPLOX II MED/LG FDA Start: 03-24-2017 NUVASIVE LOCK SCREWS FDA Star t: 03-24-2017 NUVASIVE LOCK SCREWS FDA Star t: 03-24-2017 NUVASIVE LOCK SCREWS FDA Star t: 03-24-2017 NUVASIVE LOCK SCREWS FDA Star t: 03-24-2017 ALLOGRAFT FUSELO X LUMBAR FDA Start: 03-24-2017 NUVASIVE RELINE SCREW FDA Start: 03-24-2017 NUVASIVE RELINE SCREW FDA Start: 03-24-2017 NUVASIVE RELINE SCREW FDA Start: 03-24-2017 NUVASIVE RELINE SCREW FDA Start: 03-24-2017 NUVASIVE KAREEM FDA Start: 03-24-2017 NUVASIVE KAREEM FDA Start: 03-24-2017 OSTEOAMP GRANULE S 10CC FDA Start: 03-24-2017 ALLOGRAFT FUSELO X LUMBAR FDA Start: 03-24-2017 [place] One Level Deformity FDA Start: 03-24-2017 CANCELLOUS 15CC CRUSHED FDA Start: 03-24-2017 CROSSLINK CAPLOX II MED/LG FDA Start: 03-24-2017 NUVASIVE LOCK SCREWS FDA Star t: 03-24-2017 NUVASIVE LOCK SCREWS FDA Star t: 03-24-2017 NUVASIVE LOCK SCREWS FDA Star t: 03-24-2017 NUVASIVE LOCK SCREWS FDA Star t: 03-24-2017 ALLOGRAFT FUSELO X LUMBAR FDA Start: 03-24-2017 NUVASIVE RELINE SCREW FDA Start: 03-24-2017 NUVASIVE RELINE SCREW FDA Start: 03-24-2017 NUVASIVE RELINE SCREW FDA Start: 03-24-2017 NUVASIVE RELINE SCREW FDA Start: 03-24-2017 NUVASIVE KAREEM FDA Start: 03-24-2017 NUVASIVE KAREEM FDA Start: 03-24-2017 OSTEOAMP GRANULE S 10CC FDA Start: 03-24-2017 ALLOGRAFT FUSELO X LUMBAR FDA Start: 03-24-2017 [place] One Level Deformity FDA Start: 03-24-2017 CANCELLOUS 15CC CRUSHED FDA Start: 03-24-2017 CROSSLINK CAPLOX II MED/LG FDA Start: 03-24-2017 NUVASIVE LOCK SCREWS FDA Star t: 03-24-2017 NUVASIVE LOCK SCREWS FDA Star t: 03-24-2017 NUVASIVE LOCK SCREWS FDA Star t: 03-24-2017 NUVASIVE LOCK SCREWS FDA Star t: 03-24-2017 ALLOGRAFT FUSELO X LUMBAR FDA Start: 03-24-2017 NUVASIVE RELINE SCREW FDA Start: 03-24-2017 NUVASIVE RELINE SCREW FDA Start: 03-24-2017 NUVASIVE RELINE SCREW FDA Start: 03-24-2017 NUVASIVE RELINE SCREW FDA Start: 03-24-2017 NUVASIVE KAREEM FDA Start: 03-24-2017 NUVASIVE KAREEM FDA Start: 03-24-2017 OSTEOAMP GRANULE S 10CC FDA Start: 03-24-2017 ALLOGRAFT FUSELO X LUMBAR FDA Start: 03-24-2017 [place] One Level Deformity FDA Start: 03-24-2017 CANCELLOUS 15CC CRUSHED FDA Start: 03-24-2017 CROSSLINK CAPLOX II MED/LG FDA Start: 03-24-2017 NUVASIVE LOCK SCREWS FDA Star t: 03-24-2017 NUVASIVE LOCK SCREWS FDA Star t: 03-24-2017 NUVASIVE LOCK SCREWS FDA Star t: 03-24-2017 NUVASIVE LOCK SCREWS FDA Star t: 03-24-2017 Goals Date Patient Goal Desired Activity /State Functional Status Date Assessment Result Facility 02-11-2023 Functional Status N/A [facility] 01-26-2022 Functional status Patient is Pro gressing Toward Baseline [facility] Work Phone: Mental Status Date Assessment Result Facility 01-26-2022 Cognitive function Cognitive Sta tus Patient at Baseline [facility] Work Phone: Clinical Notes 04-04-2021 to 08-28-2023 James Smith, NICOLASA - 08/28/2023 1:45 PM EST Note Date & Type Note Facility 08-28-2023 History of Presen t illness Narrative Images from the original note were not included. History of Present Illness Diabetic/Routine Nail Care: Applies to calluses BID. Side GERALDO. Location nails on bilateral feet. Duration ongoing. Severity of symptoms mild. Onset gradual. Status no change. NAILS thickened, discolored, pain. Relieved by debridement, filing down nails, clipping nails. Previous Treatment debridement. History of ulcers/wounds no. Recent BS reading, if diabetic A1C 6.9. Last fingerstick 150 Interested in diabetic shoes/inserts Dispensed [employer]andy [id number] in Purple, size 11 M on 04/11/22. PCP Dr Vicente 06/06 Date of Last visit Aggravated by shoe gear, pressure. Risk factors wearing enclosed shoes , diabetes, Neuropathy. Allergies Cephalosporins: Allergy Examination General Examination: GENERAL EXAMINATIONawake, aware of surroundings, in no acute distress. FOOT EXAM: Date of Last Foot Exam 09/09/2022 Sensory testing performed: sensations diminished Sensory and motor testing performed: strength normal Pedal pulse taking performed: 1+ Vascular: DORSALIS PEDIS PULSE:2/4, bilaterally. POSTERIOR TIBIAL PULSE:0/4, bilaterally. TEMPERATURE GRADIENT:warm to cool. EDEMA:none. CAPILLARY FILLING TIME(sec):capillary fill intact bilateral digits less than 3 secs. Neurologic: VIBRATORY:absent vibratory sensation at the first MP joint bilaterally. SEMMES-ROOPA 5.07 MONOFILAMENTdecreased light touch sensation distal to the midfoot plantarly greater than dorsally bilaterally. Dermatologic: HYPERKERATOSIS:Diffuse xerosis plantar heels bilaterally. NAIL PATHOLOGY:thick elongated mycotic toenails 1 through 10, see description below. SKIN PATHOLOGY:texture, turgor, hair growth, within normal limits. Nail Pathology: Left Foot: 1 (great toe)Long, Thick, Crumbly, Deformed, Discolored, Brittle, Dystrophic . 2Long, Thick, Crumbly, Deformed, Discolored, Brittle, Dystrophic . 3Long, Thick, Crumbly, Deformed, Discolored, Brittle, Dystrophic . 4Long, Thick, Crumbly, Deformed, Discolored, Brittle, Dystrophic . 5Long, Thick, Crumbly, Deformed, Discolored, Brittle, Dystrophic . Nail Pathology: Right Foot: 1 (great toe)Long, Thick, Crumbly, Deformed, Discolored, Brittle, Dystrophic . 2Long, Thick, Crumbly, Deformed, Discolored, Brittle, Dystrophic . 3Long, Thick, Crumbly, Deformed, Discolored, Brittle, Dystrophic . 4Long, Thick, Crumbly, Deformed, Discolored, Brittle, Dystrophic . 5Long, Thick, Crumbly, Deformed, Discolored, Brittle, Dystrophic . Orthopedic: JOINT RANGE OF MOTION:Normal. DEFORMITIES:Mild hammertoe deformities. PAIN ELICITED WITH PALPATION OFPatient reports posterior left heel pain has not returned. PAIN ELICITED WITH ROM:None. Imaging Studies: FOOT X-RAY:X-ray 2 views taken left heel on 09/27/17 revealed large posterior calcaneal exostosis. No other obvious posterior calcaneal pathology. Diabetic Shoe & Insert: Previous amputation of the other foot, or part of the foot No. History of previous foot ulceration of foot No. History of pre-ulcerative callous of foot: No. Peripheral of Neuropathy with evidence of callous formation:Yes . Foot deformity Yes . Poor circulation: No. Assessments 1. Achilles tendinitis of left lower extremity - M76.62 (Primary) 2. Bone spur on posterior portion of calcaneus - M77.30 3. Onychomycosis - B35.1 4. Type 2 diabetes mellitus with peripheral neuropathy - E11.42 5. Other hammer toe(s) (acquired), right foot - M20.41 6. Other hammer toe(s) (acquired), left foot - M20.42 Treatment 1.Onychomycosis Notes: Debrided thick painful elongated mycotic toenails 1 through 10 by manual mechanical means. No open areas were noted. documented in this encounter [facility] 08-12-2023 Evaluation note Encounter Date Diagnosis Assessment Notes Jul, Pain in right hip (ICD-10 - M25.551) 1. Neck pain: - MRI Reviewed face to face with patient revealed moderate degeneration, but no significant findings; likely due to wear and tear from years of physical activity. - Plan: Continue monitoring neck pain. Encourage the patient to participate in aqua/physical therapy for overall joint health, strenthing and conditioning. Refer the patient to Dr. Brooke for pain management. 2. Lower back pain, hip pain, and sciatica: - Suspected involvement of the sacroiliac joint and hip joint. - Plan: Refer the patient to Dr. Brooke for pain management and sacroiliac steroidal injection. Refer the patient to [facility] for aqua therapy. Discuss with primary care physician, Dr. Vicente, about prescribing a steroid prednisone for temporary relief during the patient's cruise, in the event unable to see painmanagment before vacation. Order a lidocaine patch for the patient to use on the sacroiliac and hip area for pain relief.Recommend [id number] Thermacare or heat patches to use alongside the lidocaine patch. 3. 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 Monitor the degeneration and consider a preventative approach. Encourage the patient to take Tylenol arthritis for overall help. 4. Bone density: - Plan: Dexa scan within normal limits. Jul, Pain in left hip (ICD-10 - M25.552) Jul, Sacroiliac inflammation (ICD-10 - M46.1) Jul, Cervical pain (ICD-10 - M54.2) Jul, DDD (degenerative disc disease), lumbar (ICD-10 - M51.36) [facility] Other 01-26-2024 NoteHNO ID: [id number] Author: FRANCINE LARES MD Service: ? Author Type: Physician Type: Progress Notes Filed: 08/08/2023 14:59 Note Text: PATIENT NAME: Kathy Washburn [facility] NO.: [id number] ATTENDING PHYSICIAN: Francine Lares MD DATE OF SERVICE: August 08, 2023 Some of the elements of this note have been copied from my previous progress note dated 02/07/2023. All the information has been reviewed carefully. Dear Dr. Francine Lares here is an update on a follow up visit on female Kathy Washburn at the clinic August 08, 2023 Diagnosis: Binet Stage A CLL Treatment History: HPI: Kathy Washburn is a 83 year old year old female here for follow up. Doing very well and denies any fevers and or chills. He is going in a cruise with his son PAST MEDICAL HISTORY Diagnosis Date Depression Diabetes mellitus (HCC) Hypertension Hypothyroidism Inflammatory bowel diseases (IBD) Leukocytosis Mixed hyperlipidemia Neuropathy Rheumatism, unspecified Social History Tobacco Use Smoking status: Former Packs/day: 1.50 Years: 20.00 Additional pack years: 0.00 Total pack years: 30.00 Types: Cigarettes Quit date: 07/14/1999 Years since quittin.0 Smokeless tobacco: Never Vaping Use Vaping Use: Never used Substance Use Topics Alcohol use: Not Currently Drug use: Never FAMILY HISTORY Problem Relation Age of Onset Cancer Mother Heart disease Father Hypertension Father Migraines Maternal Grandmother Heart disease Paternal Grandmother Heart disease Paternal Grandfather Past medical, social and family history reviewed without any changes. REVIEW OF SYSTEMS GENERAL: No weight loss, malaise or fevers. No night sweats. HEENT: Negative for headaches, No changes in hearing or vision, no nose bleeds or other nasal problems. RESPIRATORY: Negative for cough, wheezing and shortness of breath CARDIOVASCULAR: Negative for chest pain, leg swelling and palpitations GI: Negative for abdominal discomfort, blood in stools or black stools and change in bowel habits : Negative for dysuria, frequency and incontinence MUSCULOSKELETAL: Negative for joint pain or swelling, back pain, and muscle pain. SKIN: Negative for lesions, rash, and itching. HEMATOLOGY/LYMPHOLOGY Negative for prolonged bleeding, bruising easily, and swollen nodes. NEURO: Negative for numbness or tingling of hands/feet. No weakness. PHYSICAL EXAMINATION: There were no vitals taken for this visit. Wt 102.7 kg (226 lb 6.4 oz) BMI 32.49 kg/m2 Last 3 Encounter Wt Readings: Date: Wt: 04/18/2022 102.7 kg (226 lb 6.4 oz) 04/04/2022 103.8 kg (228 lb 12.8 oz) 08/01/2011 109.3 kg (241 lb) General appearance:ECOG PERFORMANCE STATUS: 0- Fully active, able to carry on all pre-disease performance w/o restriction. Patient in NAD. Skin: Skin color, texture, turgor normal. No rashes or lesions. Eyes: Anicteric sclera. Pupils are equally round and reactive to light. Extraocular movements are intact. Lymph Nodes: No cervical, supraclavicular, L axillary node 1-2 cm and no other adenopathy Oropharynx: Lips, mucosa, and tongue normal. Back: No pain to percussion. Negative SLR test Lungs clear to auscultation, No wheezing or rhonchi Heart: RRR without murmur, gallop, or rubs. Abdomen soft, non-tender. No masses, organomegaly Extremities: No deformities. No edema Neuro: Gait and speech normal. Reflexes normal and symmetric. Muscular strength intact. Sensation grossly intact. Rectal: Deferred : Deferred LABS: Glucose (mg/dL) Date Value 02/07/2023 117 Potassium (mmol/L) Date Value 02/07/2023 4.4 Sodium (mmol/L) Date Value 02/07/2023 138 Chloride (mmol/L) Date Value 02/07/2023 101 CO2 (mmol/L) Date Value 02/07/2023 26 Creatinine (mg/dL) Date Value 02/07/2023 1.16 BUN (mg/dL) Date Value 02/07/2023 35 Anion Gap (mmol/L) Date Value 02/07/2023 11 Calcium, Total (mg/dL) Date Value 02/07/2023 9.2 Protein, Total (g/dL) Date Value 02/07/2023 6.9 Albumin (g/dL) Date Value 02/07/2023 4.4 Bilirubin, Total (mg/dL) Date Value 02/07/2023 0.2 Alkaline Phosphatase (U/L) Date Value 02/07/2023 119 AST (U/L) Date Value 02/07/2023 21 ALT (U/L) Date Value 02/07/2023 21 WBC Date Value Ref Range Status 08/08/2023 19.43 (H) 3.70 - 11.00 k/uL Preliminary RBC Date Value Ref Range Status 08/08/2023 4.50 3.90 - 5.20 m/uL Preliminary Hemoglobin Date Value Ref Range Status 08/08/2023 12.9 11.5 - 15.5 g/dL Preliminary Hematocrit Date Value Ref Range Status 08/08/2023 40.8 36.0 - 46.0 % Preliminary MCV Date Value Ref Range Status 08/08/2023 90.7 80.0 - 100.0 fL Preliminary MCH Date Value Ref Range Status 08/08/2023 28.7 26.0 - 34.0 pg Preliminary MCHC Date Value Ref Range Status 08/08/2023 31.6 30.5 - 36.0 g/dL Preliminary RDW-CV Date Value Ref Range Status 08/08/2023 14.4 11.5 - 15.0 % Preliminary Platele (more content not included)...[facility]01-03-2024 Evaluation note* Encounter Date Diagnosis Assessment Notes Treatment Notes Treatment Clinical Notes Jul, Other spondylosis with radiculopathy, lumbar region (ICD-10 - M47.26) She did not get in to see Dr. Corea after she was last seen. She would like to see someone for her sacroiliac/back issues. We discussed that she could see Dr. Butterfield for evaluation if she would like and together they can discuss her back issues. She voices that her knee, hip and back are all very painful and she wonders if it is her sciatic that is bothering her and causing her pain. When discussing who she would like to see we discussed her seeing Homa Mckeon and she would like to start with her so a referral is provided. She has never been able to go on a cruise and her son wants to take her on one in Aug (2023) so any mobility she can have would be beneficial for her. She has a scooter she can use to help with mobility but if she qualifies for an injection she feels this may benefit her prior to her cruise. She does continue to use and benefit from the pain medication. Frequent appointments needed due to addiction potential of medication. I will see her back in three months. Side effects/risks/bene fits of medication were reviewed. Jul, Sacroiliac dysfunction (ICD-10 - M53.3) She had an injection in her back (trigger point injection) done by Dr. Vicente in 2014 but when she returned to see him she told him that it only provided her with relief for 2-3 days. For now we will have her see Dr. Butterfield for evaluation to discuss her back/sacroiliac issues. Jul, Cystitis (ICD-10 - N30.90) She requested a refill on Cipro to have on hand for when she travels on her cruise. She likes to have this on hand incase she develops UTI symptoms. Jul, Other 2:47 PM - 3:02 PM She voices that her memory is failing, she says it is good enough to function from day to day but there are pages that are falling out of her book so she has to ask alot of questions about things that happened in the past because she cannot remember. She will continue to monitor her memory. [facility] Other 10-03-2023 Evaluation note* Encounter Date Diagnosis Assessment Notes Treatment Notes Treatment Clinical Notes Apr, Diabetes type 2, uncontrolled (ICD-10 - E11.65) Discussed blood sugar results with patient today. Glucose is 154. HDL is down from 8.7 to 8.6. She admits that she did not make any changes with her Lantus and she is only using 34 units every night. I asked her to increase her Lantus to 36 units (increase by 2 units) daily for seven days and call me in one week with her blood sugar readings. Anticipate that her dose will be increased by 2 units each time but she is to call once a week until her readings are under control. Apr, Hyperlipidemia (ICD-10 - E78.5) Discussed cholesterol results with patient today. Total is 139. HDL is 42. LDL is 27. Triglycerides are 349. VLDL is 69. At this time we will have her continue with above medications, watch intake of carbs and sugars. Stay active. Will see if her getting her blood sugar under better control will help to improve her cholesterol. Apr, Hypothyroidism (ICD-10 - E03.9) Discussed thyroid results with patient today. TSH is 1.62. Free T3 is 2.71. Free T4 is 0.78. I would like her to continue with the same dose of Levothyroxine. Apr, Rheumatism, unspecified (ICD-10 - M79.0) Continue to follow with specialist as directed. Apr, Depression (ICD-10 - F32.9) Continue with above medication daily as directed. Apr, Other abnormal blood chemistry (ICD-10 - R79.89) Her BUN is 28. Creatinine is 1.06. EGFR is 53.106. I would like her to continue to stay well hydrated with plenty of water daily. Apr, Insomnia (ICD-10 - G47.00) She does continue with above medication daily as directed. Side effects/risks/benef its of medication were reviewed. Apr, Hypertension (ICD-10 - I10) Continue with above medication daily as directed. Apr, Peripheral edema (ICD-10 - R60.9) Continue with above medication daily as directed. Apr, Neuropathy (ICD-10 - G62.9) Continue with above medication daily as directed. Side effects/risks/benef its of medication were reviewed. Apr, Other spondylosis with radiculopathy, lumbar region (ICD-10 - M47.26) She voices that she is in tremendous pain all the time. She uses a cane to help her ambulate. She did break her wrist recently when she fell so it is difficult for her to use her cane. Pain inventory sheet was completed and reviewed today. Frequent appointments needed due to addiction potential of medication. We discussed her seeing Dr. Corea to discuss if she should address her back, hips or knee first. She is in agreement and a referral is provided. She is not ready to give up on her activities yet. Side effects/risks/benef its of medication were reviewed. Apr, Hip pain (ICD-10 - M25.559) bilateral She voices that both of her hips have been painful. I will order an x-ray of both hips. Apr, Knee pain, right (ICD-10 - M25.561) She voices that her right knee has been eligible for a revision since she had a replacement done in the past but she is older now and is not sure that she wants to do this. She has had alot of pain in both of her hips. I will order an x-ray of her right knee. Apr, Lipoma (ICD-10 - D17.9) She has what could be lipomas on her right arm. She has alot of what looks like trauma on her arm, she admits she has done alot over the years. I did advise her that these do not appear worrisome on exam. They move on exam and are not hot or red on exam. I encouraged her to continue to monitor these. If these start to bother her then she should let me know. She is comfortable with this. The subcutaneous tissue starts to thin and things can start to show. If one area gets larger than the other she should let me know. Apr, Chronic lymphocytic leukemia (ICD-10 - C91.10) She continues to follow with Dr. Lares for evaluation every six months. Apr, Flu vaccine need (ICD-10 - Z23) Apr, Cystitis (ICD-10 - N30.90) for lab order only Apr, Other All questions s he has about immunizations were answered. [facility] Other 10-02-2023 Evaluation note* Encounter Date Diagnosis Assessment Notes Treatment Notes Treatment Clinical Notes Apr, Insomnia (ICD-10 - G47.00) Apr, Neuropathy (ICD-10 - G62.9) [facility] Other 08-15-2023 Evaluation note* Encounter Date Diagnosis Assessment Notes Treatment Notes Treatment Clinical Notes Feb, Rib pain on left side (ICD-10 - R07.81) She voices that after her fall she had left sided rib pain, she thinks she may have fallen on her arm or her watch. She took some of the muscle relaxer that the ER gave her but they did not seem to help. Her left rib x-ray done 02-14-23 showed no appreciable rib fracture. We discussed that a hairline fracture can be missed on an initial fracture. I can provide her with an order to have an x-ray done to be sure a fracture has not been missed. If she continues to have pain in the next few days to one week she can have the x-ray done, if she has this done then she is to call. Treatment for a fracture would be for her to take a deep breath every 15 minutes to help open the lungs. She voices that she is doing this but it is very painful. It can easily take 6 weeks for a fracture to be healed, 8 weeks if it were a strain. Feb, Fall (ICD-10 - W19.XXXA) She was outside in her slippers and bent down to pull some weeds, she was on soft ground when she tried to pull the weed but it did not come out as easily as she thought it would. She ended up falling forward on her left side. Someone saw her fall and said she rolled/tumbled on her left side. She remembers losing her balance and did say a bad word and says she does not usually say bad words. She did not lose consciousness and recalls the incident. She feels that her balance is not good, she believes that it comes from her back. She has a cane in her car to use when needed. She did PT for her back six years ago. Feb, Lumbar pain (ICD-10 - M54.50) The fall has sean her back and caused it to flare up. Feb, Balance disorder (ICD-10 - R26.89) We discussed that she has now fallen two times and this is concerning. She admits that her balance is not good. I did recommend that she attend physical therapy to assist with balance training and give her exercises that she can do on her own at home to keep herself strong. She is in agreement and an order is provided for her to attend PT. Feb, Lumbar disc disease (ICD-10 - M51.9) [facility] Other 08-01-2023 Hospital Discharge instructions Patient Education 02/11/2023 12:04:20 Overactive Bladder, Adult Overactive Bladder, Adult Overactive bladder is a condition in which a person has a sudden and frequent need to urinate. A person might also leak urine if he or she cannot get to the bathroom fast enough (urinary incontinence). Sometimes, symptoms can interfere with work or social activities. What are the causes? Overactive bladder is associated with poor nerve signals between your bladder and your brain. Your bladder may get the signal to empty before it is full. You may also have very sensitive muscles thatmake your bladder squeeze too soon. This condition may also be caused by other factors, such as: Medical conditions: ?Urinary tract infection. ?Infection of nearby tissues. ?Prostate enlargement. ?Bladder stones, inflammation, or tumors. ?Diabetes. ?Muscle or nerve weakness, especially from these conditions: ?A spinal cord injury. ?Stroke. ?Multiple sclerosis. ?Parkinson's disease. Other causes: ?Surgery on the uterus or urethra. ?Drinking too much caffeine or alcohol. ?Certain medicines, especially those that eliminate extra fluid in the body (diuretics). ?Constipation. What increases the risk? You may be at greater risk for overactive bladder if you: Are an older adult. Smoke. Are going through menopause. Have prostate problems. Have a neurological disease, such as stroke, dementia, Parkinson's disease, or multiple sclerosis (MS). Eat or drink alcohol, spicy food, caffeine, and other things that irritate the bladder. Are overweight or obese. What are the signs or symptoms? Symptoms of this condition include a sudden, strong urge to urinate. Other symptoms include: Leaking urine. Urinating 8 or more times a day. Waking up to urinate 2 or more times overnight. How is this diagnosed? This condition may be diagnosed based on: Your symptoms and medical history. A physical exam. Blood or urine tests to check for possible causes, such as infection. You may also need to see a health care provider who specializes in urinary tract problems. This is called a urologist. How is this treated? Treatment for overactive bladder depends on the cause of your condition and whether it is mild or severe. Treatment may include: Bladder training, such as: ?Learning to control the urge to urinate by following a schedule to urinate at regular intervals. ?Doing Kegel exercises to strengthen the pelvic floor muscles that support your bladder. Special devices, such as: ?Biofeedback. This uses sensors to help you become aware of your body's signals. ?Electrical stimulation. This uses electrodes placed inside the body (implanted) or outside the body. These electrodes send gentle pulses of electricity to strengthen the nerves or muscles that control the bladder. ?Women may use a plastic device, called a pessary, that fits into the vagina and supports the bladder. Medicines, such as: ?Antibiotics to treat bladder infection. ?Antispasmodics to stop the bladder from releasing urine at the wrong time. ?Tricyclic antidepressants to relax bladder muscles. ?Injections of botulinum toxin type A directly into the bladder tissue to relax bladder muscles. Surgery, such as: ?A device may be implanted to help manage the nerve signals that control urination. ?An electrode may be implanted to stimulate electrical signals in the bladder. ?A procedure may be done to change the shape of the bladder. This is done only in very severe cases. Follow these instructions at home: Eating and drinking Make diet or lifestyle changes recommended by your health care provider. These may include: ?Drinking fluids throughout the day and not only with meals. ?Cutting down on caffeine or alcohol. ?Eating a healthy and balanced diet to prevent constipation. This may include: ?Choosing foods that are high in fiber, such as beans, whole grains, and fresh fruits and vegetables. ?Limiting foods that are high in fat and processed sugars, such as fried and sweet foods. Lifestyle Lose weight if needed. Do not use any products that contain nicotine or tobacco. These include cigarettes, chewing tobacco, and vaping devices, such as e-cigarettes. If you need help quitting, ask your health care provider. General instructions Take dwsy-vbu-[id number] and prescription medicines only as told by your health care provider. If you were prescribed an antibiotic medicine, take it as told by your health care provider. Do notstop taking the antibiotic even if you start to feel better. Use any implants or pessary as told by your health care provider. If needed, wear pads to absorb urine leakage. Keep a log to track how much and when you drink, and when you need to urinate. This will help your health care provider monitor your condition. Keep all follow-up visits. This is important. Contact a health care provider if: You have a fever or chills. Your symptoms do not get better with treatment. Your pain and discomfort get worse. You have more frequent urges to urinate. Get help right away if: You are not able to control your bladder. Summary Overactive bladder refers to a condition in which a person has a sudden and frequent need to urinate. Several conditions may lead to an overactive bladder. Treatment for overactive bladder depends on the cause and severity of your condition. Making lifestyle changes, doing Kegel exercises, keeping a log, and taking medicines can help with this condition. This information is not intended to replace advice given to you by your health care provider. Make sure you discuss any questions you have with your health care provider. Document Revised: 03/19/2021 Document Reviewed: 03/19/2021 [employer] Patient Education 2022 [employer]. Follow Up Care 01/23/2023 15:26:59 With:JAX BECKMAN, SUSAN Miller, URL Address: [place] [address] When: Unknown [facility] [employer] 07-28-2023 NoteHNO ID: [id number] Author: Francine Lares MD Service: ? Author Type: Physician Type: Progress Notes Filed: 02/07/2023 1:47 PM Note Text: PATIENT NAME: Kathy Washburn CLINIC NO.: [id number] ATTENDING PHYSICIAN: Francine Lares MD DATE OF SERVICE: February 07, 2023 Some of the elements of this note have been copied from my previous progress note dated 07/19/2022. All the information has been reviewed carefully. Dear Dr. Francine Lares here is an update on a follow up visit on female Kathy Washburn at the clinic February 07, 2023 Diagnosis: Binet Stage A CLL Treatment History: HPI: Kathy Washburn is a 82 year old year old female here for follow up. Doing very well and denies any fevers and or chills. The axillary pain has resolved,. PAST MEDICAL HISTORY Diagnosis Date Depression Diabetes mellitus (HCC) Hypertension Hypothyroidism Inflammatory bowel diseases (IBD) Leukocytosis Mixed hyperlipidemia Neuropathy Rheumatism, unspecified Social History Tobacco Use Smoking status: Former Packs/day: 1.50 Years: 20.00 Total pack years: 30.00 Types: Cigarettes Quit date: 07/14/1999 Years since quittin.5 Smokeless tobacco: Never Vaping Use Vaping Use: Never used Substance Use Topics Alcohol use: Not Currently Drug use: Never FAMILY HISTORY Problem Relation Age of Onset Cancer Mother Heart disease Father Hypertension Father Migraines Maternal Grandmother Heart disease Paternal Grandmother Heart disease Paternal Grandfather Past medical, social and family history reviewed without any changes. REVIEW OF SYSTEMS GENERAL: No weight loss, malaise or fevers. No night sweats. HEENT: Negative for headaches, No changes in hearing or vision, no nose bleeds or other nasal problems. RESPIRATORY: Negative for cough, wheezing and shortness of breath CARDIOVASCULAR: Negative for chest pain, leg swelling and palpitations GI: Negative for abdominal discomfort, blood in stools or black stools and change in bowel habits : Negative for dysuria, frequency and incontinence MUSCULOSKELETAL: Negative for joint pain or swelling, back pain, and muscle pain. SKIN: Negative for lesions, rash, and itching. HEMATOLOGY/LYMPHOLOGY Negative for prolonged bleeding, bruising easily, and swollen nodes. NEURO: Negative for numbness or tingling of hands/feet. No weakness. PHYSICAL EXAMINATION: BP 122/72 Pulse 74 Temp (Src) 97.3 (Temporal) Resp 20 Ht 5' 10 (1.78m) Wt 238 lb (108.0kg) SpO2 93% BMI 34.15 kg/(m2). Wt 102.7 kg (226 lb 6.4 oz) BMI 32.49 kg/m2 Last 3 Encounter Wt Readings: Date: Wt: 04/18/2022 102.7 kg (226 lb 6.4 oz) 04/04/2022 103.8 kg (228 lb 12.8 oz) 08/01/2011 109.3 kg (241 lb) General appearance:ECOG PERFORMANCE STATUS: 0- Fully active, able to carry on all pre-disease performance w/o restriction. Patient in NAD. Skin: Skin color, texture, turgor normal. No rashes or lesions. Eyes: Anicteric sclera. Pupils are equally round and reactive to light. Extraocular movements are intact. Lymph Nodes: No cervical, supraclavicular, L axillary node 1-2 cm and no other adenopathy Oropharynx: Lips, mucosa, and tongue normal. Back: No pain to percussion. Negative SLR test Lungs clear to auscultation, No wheezing or rhonchi Heart: RRR without murmur, gallop, or rubs. Abdomen soft, non-tender. No masses, organomegaly Extremities: No deformities. No edema Neuro: Gait and speech normal. Reflexes normal and symmetric. Muscular strength intact. Sensation grossly intact. Rectal: Deferred : Deferred LABS: Glucose (mg/dL) Date Value 07/19/2022 129 Potassium (mmol/L) Date Value 07/19/2022 5.0 Sodium (mmol/L) Date Value 07/19/2022 138 Chloride (mmol/L) Date Value 07/19/2022 102 CO2 (mmol/L) Date Value 07/19/2022 30 Creatinine (mg/dL) Date Value 07/19/2022 0.86 BUN (mg/dL) Date Value 07/19/2022 23 Anion Gap (mmol/L) Date Value 07/19/2022 6 Calcium, Total (mg/dL) Date Value 07/19/2022 9.5 Protein, Total (g/dL) Date Value 07/19/2022 6.8 Albumin (g/dL) Date Value 07/19/2022 4.4 Bilirubin, Total (mg/dL) Date Value 07/19/2022 0.3 Alkaline Phosphatase (U/L) Date Value 07/19/2022 115 AST (U/L) Date Value 07/19/2022 22 ALT (U/L) Date Value 07/19/2022 20 WBC Date Value Ref Range Status 02/07/2023 18.65 (H) 3.70 - 11.00 k/uL Preliminary RBC Date Value Ref Range Status 02/07/2023 4.11 3.90 - 5.20 m/uL Preliminary Hemoglobin Date Value Ref Range Status 02/07/2023 12.1 11.5 - 15.5 g/dL Preliminary Hematocrit Date Value Ref Range Status 02/07/2023 37.0 36.0 - 46.0 % Preliminary MCV Date Value Ref Range Status 02/07/2023 90.0 80.0 - 100.0 fL Preliminary MCH Date Value Ref Range Status 02/07/2023 29.4 26.0 - 34.0 pg Preliminary MCHC Date Value Ref Range Status 02/07/2023 32.7 30.5 - 36.0 g/dL Preliminary RDW-CV Date Value Ref Range Status (more content not included)...[facility]07-28-2023 History of Present illness Narrative* Francine Lares MD - 02/07/2023 1:38 PM EDT Images from the original note were not included. PATIENT NAME: Kathy Briggs [facility] NO.: [id number] ATTENDING PHYSICIAN: Francine Lares MD DATE OF SERVICE: February 07, 2023 Some of the elements of this note have been copied from my previous progress note dated 07/19/2022. All the information has been reviewed carefully. Dear Dr. Francine Lares here is an update on a follow up visit on female Kathy Washburn at the clinic February 07, 2023 Diagnosis: Binet Stage A CLL Treatment History: HPI: Kathy Washburn is a 82 year old year old female here for follow up. Doing very well and denies any fevers and or chills. The axillary pain has resolved,. PAST MEDICAL HISTORY Diagnosis Date Depression Diabetes mellitus (HCC) Hypertension Hypothyroidism Inflammatory bowel diseases (IBD) Leukocytosis Mixed hyperlipidemia Neuropathy Rheumatism, unspecified Social History Tobacco Use Smoking status: Former Packs/day: 1.50 Years: 20.00 Total pack years: 30.00 Types: Cigarettes Quit date: 07/14/1999 Years since quittin.5 Smokeless tobacco: Never Vaping Use Vaping Use: Never used Substance Use Topics Alcohol use: Not Currently Drug use: Never FAMILY HISTORY Problem Relation Age of Onset Cancer Mother Heart disease Father Hypertension Father Migraines Maternal Grandmother Heart disease Paternal Grandmother Heart disease Paternal Grandfather Past medical, social and family history reviewed without any changes. REVIEW OF SYSTEMS GENERAL: No weight loss, malaise or fevers. No night sweats. HEENT: Negative for headaches, No changes in hearing or vision, no nose bleeds or other nasal problems. RESPIRATORY: Negative for cough, wheezing and shortness of breath CARDIOVASCULAR: Negative for chest pain, leg swelling and palpitations GI: Negative for abdominal discomfort, blood in stools or black stools and change in bowel habits : Negative for dysuria, frequency and incontinence MUSCULOSKELETAL: Negative for joint pain or swelling, back pain, and muscle pain. SKIN: Negative for lesions, rash, and itching. HEMATOLOGY/LYMPHOLOGY Negative for prolonged bleeding, bruising easily, and swollen nodes. NEURO: Negative for numbness or tingling of hands/feet. No weakness. PHYSICAL EXAMINATION: BP 122/72 Pulse 74 Temp (Src) 97.3 (Temporal) Resp 20 Ht 5' 10 (1.78m) Wt 238 lb (108.0kg) SpO2 93% BMI 34.15 kg/(m^2). Wt 102.7 kg (226 lb 6.4 oz) BMI 32.49 kg/m2 Last 3 Encounter Wt Readings: Date: Wt: 04/18/2022 102.7 kg (226 lb 6.4 oz) 04/04/2022 103.8 kg (228 lb 12.8 oz) 08/01/2011 109.3 kg (241 lb) General appearance:ECOG PERFORMANCE STATUS: 0- Fully active, able to carry on all pre-disease performance w/o restriction. Patient in NAD. Skin: Skin color, texture, turgor normal. No rashes or lesions. Eyes: Anicteric sclera. Pupils are equally round and reactive to light. Extraocular movements are intact. Lymph Nodes: No cervical, supraclavicular, L axillary node 1-2 cm and no other adenopathy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 inguinal adenopathy. Oropharynx: Lips, mucosa, and tongue normal. Back: No pain to percussion. Negative SLR test Lungs clear to auscultation, No wheezing or rhonchi Heart: RRR without murmur, gallop, or rubs. Abdomen soft, non-tender. No masses, organomegaly Extremities: No deformities. No edema Neuro: Gait and speech normal. Reflexes normal and symmetric. Muscular strength intact. Sensation grossly intact. Rectal: Deferred : Deferred LABS: No results found for: GLUC, K, NA, CHLOR, CO2, CREAT, BUN, ANION, CA, TPROT, ALB, TBILI, ALKPHOS, AST, ALT WBC Date Value Ref Range Status 04/04/2022 13.38 (H) 3.70 - 11.00 k/uL Final RBC Date Value Ref Range Status 04/04/2022 4.34 3.90 - 5.20 m/uL Final Hemoglobin Date Value Ref Range Status 04/04/2022 12.3 11.5 - 15.5 g/dL Final Hematocrit Date Value Ref Range Status 04/04/2022 38.6 36.0 - 46.0 % Final MCV Date Value Ref Range Status 04/04/2022 88.9 80.0 - 100.0 fL Final MCH Date Value Ref Range Status 04/04/2022 28.3 26.0 - 34.0 pg Final MCHC Date Value Ref Range Status 04/04/2022 31.9 30.5 - 36.0 g/dL Final RDW-CV Date Value Ref Range Status 04/04/2022 15.9 (H) 11.5 - 15.0 % Final Platelet Count Date Value Ref Range Status 04/04/2022 230 150 - 400 k/uL Final MPV Date Value Ref Range Status 04/04/2022 10.7 9.0 - 12.7 fL Final Abs Neut (Segs + Bands) Date Value Ref Range Status 04/04/2022 3.08 1.45 - 7.50 k/uL Final Lymph% Date Value Ref Range Status 04/04/2022 70.0 % Final Abs Lymph (Normal + Reactive) Date Value Ref Range Status 04/04/2022 9.37 (H) 1.00 - 4.00 k/uL Final [place]% Date Value Ref Range Status 04/04/2022 5.0 % Final Abs [place] Date Value Ref Range Status 04/04/2022 0.67 <0.87 k/uL Final Eosin% Date Value Ref Range Status 04/04/2022 2.0 % Final Abs Eosin Date Value Ref Range Status 04/04/2022 0.27 <0.46 k/uL Final Baso% Date Value Ref Range Status 04/04/2022 0.0 % Final Abs Baso Date Value Ref Range Status 04/04/2022 0.00 <0.11 k/uL Final PATH: Flow 03/2022: Interpretation: The lymphocytes are composed of a mixture of T-cells (23%; CD4:CD8 ratio = 1.75), NK cells (1%) andB-cells (76%). The B-cells display an abnormal immunophenotype and are positive for CD5, CD23, CD20, CD19, CD45, CD200 and kappa light chains. The B-cells are negative for lambda light chains. Final interpretation: The findings are diagnostic of involvement by a B-cell lymphoproliferative disorder. The immunophenotype is consistent with chronic lymphocytic leukemia/small lymphocytic lymphoma (CLL/SLL). Imaging: Assessment and Plan: Kathy Washburn is a 81 year old year old female here for follow up. Newly Diagnosed Binet Stage A CLL- Discussed the natural history of the disease with Kathy. We reviewed the indications for therapy and CLL as well. She understands that she currently does not meet any requirements for therapy. I will see her back in clinic in 3 months for follow-up. All her questions were answered to her satisfaction. Thank you for the kind referral. If there are any questions and or concerns please do not hesitate to contact me at [phone]. Francine Lares MD Hematology/Medical Oncology [facility] I spent a total of 30 minutes on the date of the service which included preparing to see the patient, [id number] patient care, completing clinical documentation, obtaining and/or reviewing separately obtained history, counseling and educating the patient/family/caregiver, and ordering medications, tests, or procedures. Medical Decision Making: Medical Decision Making Level: 1 - N/A CC: Ayanna Vicente DO documented in this encounterJ.[facility]. [facility]09-28-[facility] Evaluation note* Encounter Date Diagnosis Assessment Notes Treatment Notes Treatment Clinical Notes Mar, Neuropathy (ICD-10 - G62.9) [facility] Other [id number] Miscellaneous Notes* Telephone Encounter - Francine Lares MD - 04/05/2022 5:06 PM EDT Spoke to the patient and answered her questions * Telephone Encounter - Niurka Hood RN - 04/05/2022 4:08 PM EDT Pt notified and verbalizes understanding. Pt would like to speak w/ you before her next appointment. Asks that you call her @ [phone] when you have time. Thanks! Niurka Hood RN * Telephone Encounter - Niurka Hood RN - 04/05/2022 4:07 PM EDT ----- Message from Francine Lares MD sent at 04/05/2022 3:08 PM EDT ----- Please let her know that as we discussed yesterday she has confirmed CLL and we can discuss more atmy appointment with her. I tried calling her but no one picked up documented in this encounterJ.W. [facility]09-22-2022 History of Present illness Narrative* Francine Lares MD - 04/04/2022 11:32 AM EDT PATIENT NAME: Kathy Washburn CLINIC NO.: [id number] ATTENDING PHYSICIAN: Francine Lares MD DATE OF SERVICE: April 04, [address] Ayanna Vicente thank you for referring Mrs Kathy Washburn for an opinion regarding Lymphocytosis. CHIEF COMPLAINT: I have abnormal blood work HPI: Kathy Washburn is a 81 year old year old female with past medical history significant for diabetes, neuropathy, hypothyroidism, hyperlipidemia who was referred to our clinic for evaluation of abnormal CBC. She states that she had a fall in January 2022 which resulted in a large hematoma on her right lower leg as well as a wrist fracture which she is recovering from. She denies any night sweats or significant amount of weight loss. She denies any headaches. She denies any new plan swelling. She denies any fever chills or night sweats. Her most recent CBC in March 2022 shows a white count of 12,000 and absolute lymphocytosis. Shewas noted to have absolute lymphocytosis based on records available to me dating back to September 2021. She lost her 3 years ago. Has a son who lives in [place]. She does not smoke nor drink heavily. She had a back surgery, knee replacement, hysterectomy and hernia repair in the past. Current Outpatient Medications Medication Sig venlafaxine ER (EFFEXOR XR) 75 mg 24 hr capsule Take 75 mg by mouth once daily. MELATONIN ORAL Take by mouth. hydrOXYchloroQUINE (PLAQUENIL) 200 mg tablet Take 400 mg by mouth once daily. insulin glargine (LANTUS) 100 unit/mL injection Inject subcutaneously. 21 units LYRICA 225 mg ORAL capsule Take 225 mg by mouth twice daily. OXYCODONE-ACETAMINOPHEN 5-325 mg ORAL tablet as needed. METFORMIN 1,000 mg ORAL tablet Take 1,000 mg by mouth twice daily with meals. lisinopril (ZESTRIL, PRINIVIL) 20 mg tablet LEVOTHYROXINE 88 mcg ORAL tablet LASIX 20MG TABLET Take one(1) tablet daily. INDERAL LA 60MG CAPSULE SA Take one(1) tablet daily. ZETIA 10MG TABLET Take one(1) tablet daily. LIPITOR 10MG TABLET Take 20 mg by mouth. (Patient taking differently: Take 20 mg by mouth. ) ZESTRIL 20MG TABLET Take 10 mg by mouth once daily. (Patient taking differently: Take 10 mg by mouth once daily. ) ASPIRIN 81MG TABLET Take one (1) tablet daily . CENTRUM SILVER TABLET Take one(1) tablet daily. zolpidem (AMBIEN) 5 mg tablet Take 5 mg by mouth. TRIAMTERENE-HCTZ 37.5-25 TB Take one(1) tablet daily. CELEXA 20MG TABLET Take one(1) tablet daily. No current facility-administered medications for this visit. ALLERGIES Allergen Reactions Cephalosporins Hives, Swelling Vantin [Cefpodoxime] Unknown PAST MEDICAL HISTORY Diagnosis Date Depression Diabetes mellitus (HCC) Hypertension Hypothyroidism Inflammatory bowel diseases (IBD) Leukocytosis Mixed hyperlipidemia Neuropathy Rheumatism, unspecified PAST SURGICAL HISTORY Procedure Laterality Date BACK SURGERY HX 2018 HERNIA REPAIR HX multiple TOTAL ABDOM HYSTERECTOMY TOTAL KNEE REPLACEMENT Bilateral 2011 FAMILY HISTORY Problem Relation Age of Onset Cancer Mother Heart disease Father Hypertension Father Migraines Maternal Grandmother Heart disease Paternal Grandmother Heart disease Paternal Grandfather Social History Tobacco Use Smoking status: Former Packs/day: 1.50 Years: 20.00 Pack years: 30.00 Types: Cigarettes Quit date: 07/14/1999 Years since quittin.7 Smokeless tobacco: Never Vaping Use Vaping Use: Never used Substance Use Topics Alcohol use: Not Currently Drug use: Never REVIEW OF SYSTEMS GENERAL: No weight loss, malaise or fevers. No night sweats. HEENT: Negative for headaches, No changes in hearing or vision, no nose bleeds or other nasal problems. RESPIRATORY: Negative for cough, wheezing and shortness of breath CARDIOVASCULAR: Negative for chest pain, leg swelling and palpitations GI: Negative for abdominal discomfort, blood in stools or black stools and change in bowel habits : Negative for dysuria, frequency and incontinence MUSCULOSKELETAL: Negative for joint pain or swelling, back pain, and muscle pain. SKIN: Negative for lesions, rash, and itching. HEMATOLOGY/LYMPHOLOGY Negative for prolonged bleeding, bruising easily, and swollen nodes. NEURO: Negative for numbness or tingling of hands/feet. No weakness. PHYSICAL EXAMINATION: BP 138/73 Pulse 68 Temp 36.2 C (97.1 F) (Temporal) Resp 16 Ht 177.8 cm (5' 10 ) Wt 103.8 kg (228 lb 12.8 oz) SpO2 95% BMI 32.83 kg/m Wt 103.8 kg (228 lb 12.8 oz) BMI 32.83 kg/m2 Last 3 Encounter Wt Readings: Date: Wt: 04/04/2022 103.8 kg (228 lb 12.8 oz) 08/01/2011 109.3 kg (241 lb) General appearance:ECOG PERFORMANCE STATUS: 0- Fully active, able to carry on all pre-disease performance w/o restriction. Patient in NAD. Skin: Skin color, texture, turgor normal. No rashes or lesions. Eyes: Anicteric sclera. Pupils are equally round and reactive to light. Extraocular movements are intact. Breast: No palpable breast masses. No nipple change or discharge. Lymph Nodes: No cervical, supraclavicular, or inguinal adenopathy. 1 cm nontender bilateral axillary nodes Oropharynx: Lips, mucosa, and tongue normal. Back: No pain to percussion. Negative SLR test Lungs clear to auscultation, No wheezing or rhonchi Heart: RRR without murmur, gallop, or rubs. Abdomen soft, non-tender. No masses, organomegaly Extremities: No deformities. No edema Neuro: Gait and speech normal. Reflexes normal and symmetric. Muscular strength intact. Sensation grossly intact. Rectal: Deferred : Deferred LABS: No results found for: GLUC, K, NA, CHLOR, CO2, CREAT, BUN, ANION, CA, TPROT, ALB, TBILI, ALKPHOS, AST, ALT WBC Date Value Ref Range Status 04/04/2022 13.38 (H) 3.70 - 11.00 k/uL Preliminary RBC Date Value Ref Range Status 04/04/2022 4.34 3.90 - 5.20 m/uL Preliminary Hemoglobin Date Value Ref Range Status 04/04/2022 12.3 11.5 - 15.5 g/dL Preliminary Hematocrit Date Value Ref Range Status 04/04/2022 38.6 36.0 - 46.0 % Preliminary MCV Date Value Ref Range Status 04/04/2022 88.9 80.0 - 100.0 fL Preliminary MCH Date Value Ref Range Status 04/04/2022 28.3 26.0 - 34.0 pg Preliminary MCHC Date Value Ref Range Status 04/04/2022 31.9 30.5 - 36.0 g/dL Preliminary RDW-CV Date Value Ref Range Status 04/04/2022 15.9 (H) 11.5 - 15.0 % Preliminary Platelet Count Date Value Ref Range Status 04/04/2022 230 150 - 400 k/uL Preliminary MPV Date Value Ref Range Status 04/04/2022 10.7 9.0 - 12.7 fL Preliminary PATH: IMAGING: ASSESSMENT AND PLAN: Kathy Washburn is a 81 year old year old female past medical history significant for diabetes, diabetic neuropathy, hypothyroidism, hypertension and hyperlipidemia as well as lymphocytosis. Likely diagnosis is chronic lymphocytic leukemia although other low-grade lymphoma such as marginal zone lymphoma and mantle cell lymphoma with lymphocytosis which generally exhibits a more indolent course are possibilities. Will check LDH. Send peripheral blood for flow cytometry. Patient has 2 small axillary nodes and if indeed the diagnosis is confirmed no therapy is indicatedat this time and will continue watchful waiting. See back in 2 weeks to review results. Dear Dr. Ayanna Vicentethank you for allowing me to participate in Mrs. Kathy Washburn care, if there are any questions or concerns please do not hesitate to contact me at the number below. Francine Lares M.D. Hematology/Medical Oncology [facility] [phone] CC: Ayanna Vicente DO documented in this encounterJ.W. [facility]09-20-2022 Evaluation note* Encounter Date Diagnosis Assessment Notes Treatment Notes Treatment Clinical Notes Mar, Diabetes type 2, uncontrolled (ICD-10 - E11.65) She is currently using 35 units of Lantus every day. As of late her blood sugars have been much improved. We discussed that the steroids she was on after her fall in the hospital is likely what caused her blood sugar to be out of control. Her glucose was 163 when checked. Her A1C did go up rom 7.4 to 10.5. She voices that her blood sugar has only been 170 one time in the last week and otherwise it has been below 150. We discussed that her A1C likely does not reflect the most recent better glucose readings that she has been calling with. I will have her get a Fructosamine level drawn soon which will show what her glucose level has been over the previous three weeks or so. She can call for these results. I encouraged her to continue to monitor her intake of carbs and sugars and stay active. What she is doing is working well. Mar, Hyperlipidemia (ICD-10 - E78.5) Discussed cholesterol results with patient today. Total is 102. HDL is 50. LDL is 27. Triglycerides are 125. VLDL is 25. She is told that these readings are at goal. She is to continue with above medications daily as directed. Will continue to monitor. Mar, Hypothyroidism (ICD-10 - E03.9) Discussed her thyroid results with her today. Her TSH is 1.11. Free T3 is 2.81. Free T4 is 1.02. She is to continue with the same dose of Levothyroxine daily. Mar, Wrist fracture, right (ICD-10 - S62.101A) She voices that she fractured her right wrist 10 weeks ago. She voices that her hand still hurts and she did not see Dr. Mike but would like to see her for evaluation. She has range of motion but it hurts and if she does not wear her brace it will begin to hurt. She has not followed with any clinical research specialist. She saw Dr. Akins in the hospital but was told to follow up with someone in eight weeks if needed. A referral is provided for her to see Dr. Mike. Mar, Leukocytosis (ICD-10 - D72.829) In January (2021) her white count was elevated (14.7), when rechecked her white count is still elevated at 12.0, lymphocytes predominately. She has pro lymphocytes. I discussed this with her in detail with her today. Her platelet count is normal and she is not anemic. She has not lost a significant amount of weight and has not had night sweats. I would like to refer her to a meat process worker for evaluation, and she agrees. A referral is provided. Mar, Hematoma (ICD-10 - T14.8XXA) lower right leg This has improved significantly and looks good on exam. Mar, Rheumatism, unspecified (ICD-10 - M79.0) Continue with above medication as directed. Mar, Depression (ICD-10 - F32.9) She voices that the medication is working well for her and she likes it. She voices that after a week or so she realized she felt good . She is to continue with the medication daily as directed. Do not suddenly stop the medication, if she ever wants to come off the medicine she should wean off of it. Mar, Hypertension (ICD-10 - I10) Blood pressure is controlled. Continue with above medications daily as directed. Mar, Other abnormal blood chemistry (ICD-10 - R79.89) Mar, Other spondylosis with radiculopathy, lumbar region (ICD-10 - M47.26) An [facility] report was reviewed no discrepancies noted. Frequent appointments needed due to addiction potential. Pain inventory sheet completed and reviewed. She does continue to use and benefit from the pain medication if needed. Side effects/risks/benef its of medication were reviewed. She does need to be seen every three months for evaluation. She voices that she continues to have lower back pain, it is worse when she is standing and better when she is laying down. She feels it is worse since she fell this summer. She will not consider surgery due to her age. She is not taking her pain medication very often because she is afraid of addiction potential and only takes it once or twice a week and it does help tremendously. She is told that she can take the pain medication once a day if needed. She can also see a apprentice painter brush to discuss injections. She voices that she saw Dr. Guillaume in the past for migraines and would like to see Dr. Morales for evaluation. For now she will try to take the pain medication more often and see if this provides her with better relief and will continue to monitor. I will refer her to Dr. Morales for evaluation. Mar, Other ocean transportation intermediary (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 therapy (ICD-10 - Z79.899) Mar, Encounter for screening mammogram for breast cancer (ICD-10 - Z12.31) Provided her with an order to have a bilateral mammogram done. Mar, Irritable bowel syndrome (IBS) (ICD-10 - K58.9) Continue with above medications as directed/needed. Mar, Neuropathy (ICD-10 - G62.9) Continue with above medication daily as directed. Side effects/risks/benef its of medication were reviewed. Mar, Elevated alkaline phosphatase level (ICD-10 - R74.8) She voices that when she was in the hospital she was placed on Vitamin D3 5000 IU and a Vitamin 500 + D. I did advise her that she can continue with both of these vitamins. Mar, Flu vaccine need (ICD-10 - Z23) She wanted a flu vaccine today but the lymphocytes react to the flu so I do not want her to get this until seen by the meat process worker. She voices understanding. Mar, Encounter for screening colonoscopy (ICD-10 - Z12.11) She voices that she was supposed to have a colonoscopy done by Dr. Milner but he has since left the area. She had a colonoscopy in [address] Iglesias and voices that she did have polyps. I did recommend that she have a colonoscopy done but she would like to discuss other options. Another option was for her to have a FOBT done which only looks for human blood. If this is negative then she can repeat this test in one year. However because she has had polyps then I would again recommend the colonoscopy. She voices that she recalls that Dr. Iglesias advised her that during her colonoscopy 2013 it was difficult for him to get through her colon and he would be putting her out for her next colonoscopy so she is unsure if this is a risk she would take at her age. I prefer not to order the Cologuard test due to potential false positive readings. After discussion she voices that if she were to have a repeat colonoscopy she would prefer to have this done by Dr. Milner. We will try to find out where Dr. Milner went in [place] and then will refer her back to Dr. Milner to discuss a colonoscopy. Mar, Weight loss (ICD-10 - R63.4) She has lost 1.5 pounds since last seen. [facility] Other 09-06-2022 Evaluation note* Encounter Date Diagnosis Assessment Notes Treatment Notes Treatment Clinical Notes Mar, Diabetes type 2, uncontrolled (ICD-10 - E11.65) Mar, Hypertension (ICD-10 - I10) Mar, Neuropathy (ICD-10 - G62.9) [facility] Other 08-26-2022 Evaluation note* Encounter Date Diagnosis Assessment Notes Treatment Notes Treatment Clinical Notes Feb, Diabetes type 2, uncontrolled (ICD-10 - E11.65) [facility] Other 07-27-2022 Evaluation note* Encounter Date Diagnosis Assessment Notes Treatment Notes Treatment Clinical Notes Jan, Cystitis (ICD-10 - N30.90) She voices that she was diagnosed with a urinary tract infection when she was in the hospital. She voices that normally she is sensitve to knowing if she has a UTI but she did not know that she had a urinary tract infection this time. Jan, Diabetes type 2, uncontrolled (ICD-10 - E11.65) Will cautiously have her continue with the Metformin. Will check her kidney studies and stop the Maxzide for now. She is checking her blood sugar in the mornings and her sugars have been elevated in the mornings at 180 where they used to be in the 130s. I will have her get lab drawn in two to three weeks. She is only using 21 units of Lantus right now, she can increase her dose by 2 units for three mornings in a row and watch her morning sugars, her goal morning readings are around 140, she can continue to go up by 2 units until she gets to the goal of 140 each morning. Jan, Wrist fracture, right (ICD-10 - S62.101A) She has a distal fracture in her radius, she voices that she likely has a second fracture but the treatment would be the same so no further x-rays would be done. She saw Dr. Walker for evaluation, I advised her to wear the splint until seen by him again. Jan, Hematoma (ICD-10 - T14.8XXA) right lower leg She voices that her right lower leg has been very sore and tender. I did explain to her that this is a hematoma and can take months to resolve. It may eventually become a hard marble. The area is warm on exam today. She would like to see Dr. Akins for evaluation, a referral is provided. Jan, Knee pain, right (ICD-10 - M25.561) She is trying to do the exercises that were given to her by the physical therapist on her own at home. She would like to see Dr. Akins for evaluation and a referral is provided for her to see him. She has been trying to do physical therapy on her own. Jan, Other spondylosis with radiculopathy, lumbar region (ICD-10 - M47.26) Pain inventory sheet completed and reviewed. She does continue to use and benefit from the above medication when needed. Frequent appointments needed due to addiction potential of the medication. She voices that she can count on one hand the days she has taken more than 1 pain pill, and she rarely uses the pain medication. I will provide her with a refill today. Side effects/risks/benef its of medication were reviewed. She can discuss her back with Dr. Akins but she is told that he will likely refer her to a different specialist for her back, she may consider seeing Dr. Valderrama. Jan, Peripheral edema (ICD-10 - R60.9) We discussed that the Maxzide is hard on the kidneys. For now I am going to have her stop this medication. Jan, Hypertension (ICD-10 - I10) For now she should cautiously continue with the above medication. Jan, Other abnormal blood chemistry (ICD-10 - R79.89) We discussed that when she was seen at the ER on 01-13-22 her kidney studies were abnormal. Her BUN was 74. Creatinine was 2.72. EGFR was 17. There was discussion as to whether or not she should continue with her Maxzide, Lisinopril and Metformin. I would like her to have lab drawn to see where her kidney studies are at the week of February 25, 2022. She needs to stay well hydrated with plenty of water daily and avoid NSAID medications. Jan, Balance disorder (ICD-10 - R26.89) She admits that she does have balance issues and she does fall. I do want her to stop taking the Maxzide and anticipate that this will help her to be more steady, not fall and will also help improve her kidney studies. Jan, Insomnia (ICD-10 - G47.00) She is no longer taking Ambien, she is taking Melatonin. Jan, Other halfway (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 therapy (ICD-10 - Z79.899) Jan, Depression (ICD-10 - F32.9) She voices that the Effexor is working well for her and she would like to have a 90 day supply. A new prescription is provided. Jan, Other She voices that she was watching the fireworks by herself, she was on a deck that had three steps up. She could feel herself going backwards. She did not feel like she was passing out but could feel she was going backwards, she felt something odd, she grabbed the railing and recalls it was slipping out of her hands. She falls three steps down, hits the concrete and possibly an ice chest. She had two cuts that did bleed. She smashed her glasses and had a contusion on her right leg and hurt her right wrist. She was out but does not know how long she was out for but does not feel like it was for very long because she was alone, she recalls seeing alot of blood. About 2-4 minutes later she was able to dial someones number on her cell phone which she had with her. She did not go to the ER right away because she was at [place] which is 50 miles west of [place] and there was not an ER close by. She slept with ice on her leg but the next morning she was not able to drive home so she was driven home by a friend and another friend took her to the ER. I did recommend that she continue to avoid driving because of her hematoma on the right leg and right wrist. She can ask Dr. Akins when he thinks she can return to driving. 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 She is in need of and will benefit from diabetic shoe wear. She is following with Dr. Smith for foot exams and foot care. Mild hammertoe deformities second and third toes of right and left foot. Peripheral neuropathy with callous formation at distal first and third toes right foot and first and fourth toes left foot. Onychomycosis of the toenails x10. Monofilament test completed in the office today diminished monofilament sensation on dorsal right and left foot and no light touch sensation on plantar aspect of either foot. Dec, Hammertoe of right foot (ICD-10 - M20.41) Dec, Hammertoe of left foot (ICD-10 - M20.42) Dec, Foot deformity (ICD-10 - M21.969) [facility] Other 06-08-2022 Evaluation note* Encounter Date Diagnosis Assessment Notes Treatment Notes Treatment Clinical Notes Dec, Peripheral edema (ICD-10 - R60.9) [facility] Other 06-06-2022 Evaluation note* Encounter Date Diagnosis Assessment Notes Treatment Notes Treatment Clinical Notes Dec, History of colon polyps (ICD-10 - Z86.010) Dec, Irritable bowel syndrome with diarrhea (ICD-10 - K58.0) MAY USE IMODIUM NEEDED PT TO REPORT PROGRESS [facility] Other 05-02-2022 Evaluation note* Encounter Date Diagnosis Assessment Notes Treatment Notes Treatment Clinical Notes November, Cystitis (ICD-10 - N30.90) [facility] Other 03-22-2022 Evaluation note* Encounter Date Diagnosis Assessment Notes Treatment Notes Treatment Clinical Notes Sep, Diabetes type 2, uncontrolled (ICD-10 - E11.65) Discussed blood sugar results with patient today. Glucose is 126. HgA1C is 7.4 up from 7.2. At this time I did recommend that she watch her intake of carbs and sugars. Stay active. I would like her to keep her A1C at 7.5 or below. She is to continue with the same dose of above medications. She admits that she has tried to eliminate all white foods from her diet and eats more salads and in general tries to watch her diet closer. Sep, Hypothyroidism (ICD-10 - E03.9) Discussed thyroid results with patient today. TSH is 1.34. Free T4 is 1.02. Free T3 is 2.81. At this time she is to continue with the same dose of Levothyroxine. Sep, Hyperlipidemia (ICD-10 - E78.5) Discussed cholesterol results with patient today. Total is 122. HDL is 47. LDL is 41. Triglycerides are 170. Readings are at goal. Continue with above medication daily as directed. Sep, Other abnormal blood chemistry (ICD-10 - R79.89) Her kidney studies were reviewed. BUN is 37. Creatinine is 1.11. EGFR is 47. Her kidney studies have improved. She is to drink plenty of water daily. Sep, Cough (ICD-10 - R05.9) She voices that when she came home from traveling from [place] last week she had congestion and was coughing alot, she had alot of irritation in her throat and the back of her throat. She feels like someone put a bullet in her throat. She took a decongestant yesterday and feels better today. 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 I did recommend that she have the respiratory panel done because of her recent travel on a plane. We know she has lots of degenerative changes throughout her spine including her neck. Her diaphram controls her controls the breathing. She voices that it is harder for her to catch a good breath because of her neck issues. Coughing exacerbates everything. She does not have any trouble swallowing. If she is not having trouble swallowing then I do not feel she has any neurologic issues and I suspect her issue is related to her spine. Coughing likely intensifies the problem. If she begins to cough again (she has not coughed today) then I did recommend that she have the respiratory panel done and call for results. Sep, Depression (ICD-10 - F32.9) She does continue to use and benefit from the above medication. Sep, Anemia (ICD-10 - D64.9) Her HGB is 12.6. Sep, Irritable bowel syndrome (IBS) (ICD-10 - K58.9) She will see Dr. Milner in November for evaluation but she voices that she got a call yesterday saying this needed to be rescheduled so she will call and find out when she can get in. Sep, Rheumatism, unspecified (ICD-10 - M79.0) Continue with above medication as directed. Sep, Insomnia (ICD-10 - G47.00) She does continue to use and benefit from the Ambien. Side effects/risks/benef its of medication were reviewed. Sep, Other spondylosis with radiculopathy, lumbar region (ICD-10 - M47.26) She voices that she was able to travel to [place] last week on her own for the first time by herself with her back issues and did well. She did have to use a wheelchair. She did need a wheelchair while in the airport. An [place]ARRS report was reviewed, no discrepancies noted. Frequent appointments needed due to addiction potential. She has not gone to the [facility]. She voices that she never got a call back from that center and did not pursue this because she got involved with a urologist then developed bowel issues. She voices that she will follow up with the [facility] and Dr. Regan for this issue. Sep, Bladder instability (ICD-10 - N32.89) She voices that she did follow with urology, Dr. Redding and did get Botox treatments followed by medication. She voices that between this and the Botox it seems to have helped her somewhat. It made traveling possible for her and made her symptoms manageable for her. Sep, Peripheral edema (ICD-10 - R60.9) Continue with above medication daily as directed. Sep, Hypertension (ICD-10 - I10) For now she should continue with above medications daily as directed. Sep, Neuropathy (ICD-10 - G62.9) Continue with above medication daily as directed. Side effects/risks/benef its of medication were reviewed. Sep, Other 2:54 PM - 3:20 PM [facility] Other 03-21-2022 Evaluation note* Encounter Date Diagnosis Assessment Notes Treatment Notes Treatment Clinical Notes Sep, Cough (ICD-10 - R05.9) [facility] Other 03-03-2022 Evaluation note* Encounter Date Diagnosis Assessment Notes Treatment Notes Treatment Clinical Notes Sep, Change in bowel habits (ICD-10 - R19.4) Sep, Change in stool caliber (ICD-10 - R19.4) She voices that she has had a change in stool for the last couple months but this has gradually worsened over the last few months. She voices that the stool is smelly and she has gas during the day and her low back hurts. She voices that her stool is small pellets but soft and mush. She had a bad bout last week and had to go every time she got out of bed. She has not had any liquid stool in the last month it is always soft mush stool. She has had loss of bowel which is new for her in the last couple of months. I did recommend that she see a salesperson floor coverings for evaluation to discuss these issues further, she does agree to this and a referral is provided for her to see Dr. Milner. I did recommend that she have her lab drawn this week to be sure her thyroid is not abnormal. Sep, History of colon polyps (ICD-10 - Z86.010) We discussed that she had a polyp removed when she had a colonoscopy done in 2013, I recommend that she have a repeat colonoscopy done. She agrees but she is going to [place] on 09-19-21 and will not return until 09-26-21. She will do this when she returns. Sep, Diverticulitis (ICD-10 - K57.92) Signs/symptoms of diverticulitis were reviewed, if she experiences any of these she should be evaluated at the ER. She denies any signs/symptoms of diverticulitis at this time. Sep, Irritable bowel syndrome (IBS) (ICD-10 - K58.9) For now she can continue with the Imodium until she returns from [place] and is seen by Dr. Milner. She voices that she did take Pepto but it caused her stool to be black, once she stopped this medication the stool color returned to normal. Sep, Lumbar pain (ICD-10 - M54.5) She voices that her low back hurts but she has a history of having low back pain and low back issues. Sometimes her back hurts worse before she has a bowel movement but other times it hurts after she has a bowel movement. We discussed that her back pain/issues could be contributing to the pain she is having. Sep, Other 9:29 AM - 9:49 AM [facility] Other 01-05-2022 Evaluation note* Encounter Date Diagnosis Assessment Notes Treatment Notes Treatment Clinical Notes Jul, Neuropathy (ICD-10 - G62.9) [facility] Other 12-06-2021 Evaluation note* Encounter Date Diagnosis Assessment Notes Treatment Notes Treatment Clinical Notes Jun, Cervical pain (ICD-10 - M54.2) I did explain to her that her physical therapist Oscar Marley sent a note stating that she should be referred to pain management due to her declining in tolerance to ADL's/household activities. She voices that she was attending PT as ordered by Dr. Regan for her neck and back. She voices that there is very little that she can do without causing more problems. Jun, Other spondylosis with radiculopathy, lumbar region (ICD-10 - M47.26) She voices that she is very limited in what she can do right now. She recently had to bail on something that she really enjoys doing. She has missed three family events since January (2020) because of her pain and ability to move. She discussed that her pain medication does help her pain, but she is very reluctant to use it because her supply is limited. An OARRS report was reviewed no discrepancies noted. She can only function some days with the medication if she has commitments that she has to attend. She would like to use the medication one time per day most days without worrying that this is going to create a problem. She feels pain management will only be able to do injections, she feels she is too old for surgery and is not sure she would want to have surgery. She does not want to see another doctor right now. We discussed that there is risk of addiction with taking pain medication daily and the body will build up a pain tolerance and then the body will want a higher dose, coming off an opioid medication is difficult. She feels she would use a maxiumum of three in one week. We discussed that there are other options that pain management doctors can offer. Dr. Regan was going to refer her to the spine center in [place] but she did not pursue this. We discussed that the pain she is having in the bladder could be coming from the back. I did explain to her that she could see someone from the spine center that Dr. Regan wanted to refer her to. She would like to work through her bladder issues and continue with the pain medication and see how she does. Once she gets through the holidays she would consider seeing a local specialist. She is going to use the pain medication when she needs it, I did advise her that she should not drive 12 hours after taking it and do not drink any alcohol or anything sedating after taking it. Side effects/risks/benef its of medication were reviewed. She can call for refills in between visits but will need to be seen again in three months. Jun, Cystitis (ICD-10 - N30.90) She currently follows with a lead radiologic technologist. She also saw Dr. Redding for evaluation and he did a procedure on her bladder to help with bladder leakage, she was supposed to see him again but he was sick so she is trying to get in to see either him or another doctor such as Dr. Peterson or Dr. Gleason, she does not want to see his PA or SHOT COAT TENDER. She gets a pain in her vaginal area, describes it as a cut but now it feels as if it is going up higher. When she went to [facility] yesterday she felt like someone cut her but there was no blood. Sometimes it is difficult for her to know if this was from the bladder or the vagina. She has used all the Cipro she had on hand in the last two weeks and would like to have this on hand again. Sometimes she has some relief when she has a bowel movement. I discussed that medically it would be best that she contact her urologist and advise them that she has urinary issues and that they should order a urinalysis and treat her appropriately. She would like to have the Cipro sent in, I will do this but I asked her to at least call the urologist and be set up for an appointment but she needs to involve them in her care for when this happens in the future. Jun, Other 2:53 PM - 3:23 PM [facility] Other 10-12-2021 Evaluation note* Encounter Date Diagnosis Assessment Notes Treatment Notes Treatment Clinical Notes Apr, Neuropathy (ICD-10 - G62.9) [facility] Other 09-22-2021 Evaluation note* Encounter Date Diagnosis Assessment Notes Treatment Notes Treatment Clinical Notes Mar, Hyperlipidemia (ICD-10 - E78.5) Discussed cholesterol results with patient today. Total is 141. HDL is 40. LDL is 58. Triglycerides are 215 which go hand in hand with blood sugar. Her cholesterol readings are at goal. I would like her to continue to monitor her intake of carbs and sugars. Stay active. Mar, Hypothyroidism (ICD-10 - E03.9) Discussed thyroid results with patient today. TSH is 1.63. Free T3 is 2.67. Free T4 is 0.98. I would like her to continue with the same dose of Synthroid. Mar, Diabetes type 2, uncontrolled (ICD-10 - E11.65) She is currently using 21 units of Lantus each evening. We discussed her blood sugar results today. Her glucose is 132. HgA1C is 7.2 down from 7.7 which is excellent and at goal. She is encouraged to continue with what she is doing as it is working well. Mar, Lumbar pain (ICD-10 - M54.5) An OARRS report was reviewed, no discrepancies noted. She would like to have the medication on hand to use if needed, as it does provide her with relief when she uses it. Do not drink alcohol or drive after taking. Side effects/risks/benef its of medication were reviewed. She will need to return in three months for re-evaluation. 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 Regan. He felt her bladder issue could be caused by her back issue. Dr. Regan is referring her to the [facility] and she is seeing Oscar Marley for physical therapy. Pain inventory completed by patient and reviewed. Frequent appointments needed due to addiction potential. Mar, Depression (ICD-10 - F32.9) Continue with above medication daily as directed. Mar, Hypertension (ICD-10 - I10) Her blood pressure is controlled today. Continue with both of above medications. Mar, Insomnia (ICD-10 - G47.00) She does continue to use and benefit from the Ambien. Side effects/risks/benef its of medication were reviewed. Mar, Rheumatism, unspecified (ICD-10 - M79.0) Continue with above medication daily as directed, follow with the specialist as directed. Mar, Encounter for screening mammogram for breast cancer (ICD-10 - Z12.31) I did provide her with an order to have a bilateral mammogram done. Mar, Other abnormal blood chemistry (ICD-10 - R79.89) We discussed that her kidney studies are changing. She is taking Lasix and Maxzide which both can be hard on the kidneys. She has never seen a claims correspondence clerk before. Her BUN is 40. Creatinine is 1.28. EGFR is 40. I asked her to stop taking the Lasix and in one month I would like her to repeat lab to see where her kidney studies are at. She is to stay well hydrated with plenty of water daily until she has this drawn. Decaf coffee and tea count as water. Mar, Bladder instability (ICD-10 - N32.89) She does follow with Dr. Redding as directed. She had a dilation done but it did not help her symptoms. She has had two appointments but both were cancelled but she does have an appointment within the next two weeks to discuss further. Mar, Neuropathy (ICD-10 - G62.9) Continue with above medication daily as directed. Mar, Peripheral edema (ICD-10 - R60.9) We discussed that both the Lasix and Maxzide can irritate the kidneys. I would like her to stay well hydrated with plenty of water daily. She is going to stop the Lasix and we will repeat lab in one month to see if her kidney studies have improved. Mar, Diverticulitis (ICD-10 - K57.92) Provided her with a refill on Cipro to have on hand in case needed. Mar, Flu vaccine need (ICD-10 - Z23) She will receive a flu vaccine today. Mar, Elevated lymphocyte count (ICD-10 - D72.820) Lymphocytes fight off viruses and infections. Her lymphocyte count is elevated which seems to be progressing over time for her and now it is 6.2. We discussed referring her to a meat process worker for evaluation and to discuss this further but instead we will repeat lab in one month and if her level is this high or higher then we will do a referral through the [facility] in [place]. Mar, Knee pain (ICD-10 - M25.569) She was supposed to have an x-ray of her knees and hip before she could see Dr. Hiram Regan. She did have these done and then she did a video call with Dr. Regan. The titanium is intact and everything is functioning fine. She voices that her knees continue to hurt. Dr. Regan did not see anything wrong with her right hip joint either. It is possible that the knee pain she has is coming from her back. She is attending physical therapy and will see the [facility] soon. Mar, Weight loss (ICD-10 - R63.4) She has lost 5.5 pounds since last seen. She voices that she is trying to lose weight slowly. Encouraged her to continue with what she is doing. [facility] Other Evaluation + Plan note Future Appointments Appointment Date:02/24/2024 10:00:00 AM Scheduled Provider:SUSAN RANDOLPH PA-C Location:[facility] Appointment Type:URO Office Visit [facility] evaluation note* Diagnosis Pain in both knees, unspecified chronicity- Primary [facility] InformationNort [place] Social Other Evaluation note* Diagnosis Onset Date Resolution Status Abrasion acute Acute hypotension acute Acute UTI acute TIP (acute kidney injury) ac anisa Contusion of leg, right acut e Fall acute Minor closed head injury acu te Right wrist fracture acute Sepsis acute Diabetes chronic Acute UTI acute Chronic back pain acute Depression acute Diabetic neuropathy acute Fall acute Hematoma of right lower leg acute Impaired mobility and activities of daily living acute Minor closed head injury acu te Right wrist fracture acute Diabetes chronic Hypertension chronic Hypothyroidism chronic [facility] Work Phone: Evaluation note* Diagnosis Lymphocytosis- Primary Lymphocytosis (symptomatic) documented in this encounter [place] note* Diagnosis CLL (chronic lymphocytic leukemia) (HCC)- Primary Chronic lymphoid leukemia, without mention of having achieved remission documented in this encounter [place] note* Diagnosis Onset Date Resolution Status Acute UTI acute Chronic back pain acute Depression acute Diabetic neuropathy acute Fall acute Hematoma of right lower leg acute Impaired mobility and activities of daily living acute Minor closed head injury acu te Right wrist fracture acute Diabetes chronic Hypertension chronic Hypothyroidism chronic [facility] Work Phone: evaluation note* Diagnosis CLL (chronic lymphocytic leukemia) (HCC)- Primary Chronic lymphoid leukemia, without mention of having achieved remission Right ear pain Otalgia, unspecified Rib pain Chest pain, unspecified Axillary adenopathy Enlargement of lymph nodes Other signs and symptoms in breast Encounter for screening mammogram for malignant neoplasm of breast Other screening mammogram documented in this encounter [place] noteNo assessment information [facility] Work Phone: evalutlwkw note* Diagnosis CLL (chronic lymphocytic leukemia) (HCC)- Primary Chronic lymphoid leukemia, without mention of having achieved remission documented in this encounter [place] note* Diagnosis Onychomycosis- Primary Dermatophytosis of nail 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) Pain in both feet [facility] N[facility]ative - Reported* Type Description Date Medical History pelvic exam done Medical History 2009 mammogram-normal Medical History 2008 colonoscopy Medical History 2003 CT scan done Medical History 2007 eye exam Medical History 3-2009 Zostavax done Medical History 12-2009 Flu/H1N1 vaccine Medical History -2010 mammogram Medical History DEXA scan Medical History Follows with Dr. Kelsie rivera y Medical History 08-22-2011 Left femur [facility] Medical History 08-22-2011 Chest x-ray [facility] Medical History stress test-normal ([facility]) Medical History Mammogram 2015 - Dr. Fritz Surgical History bilateral inguinal hernia repai r 1982 Surgical History left knee 2000 Surgical History hysterectomy 1985 Surgical History abdominal hernia 1992 Surgical History hernia repair 1997 Surgical History appendectomy 1985 Surgical History right knee replacement (Dr Monique hdz) Surgical History left total knee (Dr Haque) 2 Surgical History geraldo inguinal hernia repair 1981 Surgical History lt knee 1999 Surgical History right knee replacement- Dr. Shaun hdz -2009 Surgical History left total knee-Dr. Haque -2011 Surgical History lumbar surgery Dr Frias 03/24/17 Surgical History Colonoscopy, col Bonifacio on polyps - Hospitalization History see above [facility] Other Hiseytg general Narrative - Reported* Type Description Date Medical History pelvic exam done Medical History 2009 mammogram-normal Medical History 2009 colonoscopy Medical History 2003 CT scan done Medical History 2007 eye exam Medical History Zostavax done Medical History Flu/H1N1 vaccine Medical History mammogram Medical History DEXA scan Medical History Follows with Dr. Kelsie rivera y Medical History 08-22-2011 Left femur [facility] Medical History 08-22-2011 Chest x-ray [facility] Medical History stress test-normal ([facility]) Medical History Mammogram 2015 - Dr. Fritz Surgical History bilateral inguinal hernia repai r 1982 Surgical History left knee 2000 Surgical History hysterectomy 1985 Surgical History abdominal hernia 1992 Surgical History hernia repair 1997 Surgical History appendectomy 1985 Surgical History right knee replacement (Dr Monique hdz) Surgical History left total knee (Dr Haque) 2 2 Surgical History geraldo inguinal hernia repair 1981 Surgical History lt knee 2000 Surgical History right knee replacement- Dr. Shaun hdz -2009 Surgical History left total knee-Dr. Haque Surgical History lumbar surgery Dr Frias 03/24/17 Surgical History Colonoscopy, col Bonifacio on polyps - Hospitalization History see above Hospitalization History fx wrist and head lacera tion after a fall 01/13/22 [facility] Other history general Narrative - Reported* Type Description Date Medical History pelvic exam done Medical History 2009 mammogram-normal Medical History 2009 colonoscopy Medical History 2004 CT scan done Medical History 2008 eye exam Medical History -2009 Zostavax done Medical History Flu/H1N1 vaccine Medical History mammogram Medical History DEXA scan Medical History Follows with Dr. Kelsie rivera y Medical History 08-22-2011 Left femur [facility] Medical History 08-22-2011 Chest x-ray [facility] Medical History stress test-normal ([facility]) Medical History Mammogram 2015 - Dr. Fritz Medical History Leukemia Surgical History bilateral inguinal hernia repai r 1982 Surgical History left knee 2000 Surgical History hysterectomy 1985 Surgical History abdominal hernia 1992 Surgical History hernia repair 1997 Surgical History appendectomy 1985 Surgical History right knee replacement (Dr Monique hdz) -2009 Surgical History left total knee (Dr Haque) 2 2 Surgical History geraldo inguinal hernia repair 1981 Surgical History lt knee 1999 Surgical History right knee replacement- Dr. Shaun hdz Surgical History left total knee-Dr. Haque Surgical History lumbar surgery Dr Frias 03/24/17 Surgical History Colonoscopy, Dr. Iglesias, col on polyps - Hospitalization History see above Hospitalization History fx wrist and head lacera tion after a fall 01/13/22 [facility] Other history general Narrative - Reported* Type Description Date Medical History pelvic exam done Medical History 2009 mammogram-normal Medical History 2009 colonoscopy Medical History 2004 CT scan done Medical History 2008 eye exam Medical History Zostavax done Medical History Flu/H1N1 vaccine Medical History mammogram Medical History DEXA scan Medical History Follows with Dr. Kelsie rivera y Medical History 08-22-2011 Left femur [facility] Medical History 08-22-2011 Chest x-ray [facility] Medical History stress test-normal ([facility]) Medical History Mammogram 2015 - Dr. Fritz Medical History Leukemia Medical History Arthritis Medical History diabetes mallitus Medical History high cholesterol Medical History chronic depression Medical History thyroid disease Surgical History bilateral inguinal hernia repai r 1982 Surgical History left knee 1999 Surgical History hysterectomy 1985 Surgical History abdominal hernia 1992 Surgical History hernia repair 1998 Surgical History appendectomy 1986 Surgical History right knee replacement (Dr Monique hdz) -2009 Surgical History left total knee (Dr Haque) 2 Surgical History geraldo inguinal hernia repair 1981 Surgical History lt knee 1999 Surgical History right knee replacement- Dr. Shaun hdz Surgical History left total knee-Dr. Haque Surgical History lumbar surgery Dr Frias 03/24/17 Surgical History Colonoscopy, Dr. Iglesias, col on polyps 12-13-2013 Hospitalization History see above Hospitalization History fx wrist and head lacera tion after a fall 01/13/22 [facility] Other Hospital course Narrative No data available for this section [facility] Hospital Discharge [facility] Work Phone: Progress note No data available for this section [facility] reason for referral (narrative)* Diagnostic Procedure Only (Routine) Status Reason Specialty Diagnoses / Procedures Referred By Contact Referred To Contact Pending Review Auto-Generated Referral XR IMAGING Diagnoses Pain in both knees, unspecified chronicity Procedures XR PELVIS 1V AP X-RAY PELVIS AP ONLY Dale Espinoza PA-C [address] [place] [address] Xr Imaging * Diagnostic Procedure Only (Routine) Status Reason Specialty Diagnoses / Procedures Referred By Contact Referred To Contact Pending Review Auto-Generated Referral XR IMAGING Diagnoses Pain in both knees, unspecified chronicity Procedures XR KNEE GENERAL 4V AP BOTH/PA BOTH/LAT/MERC BILAT KNEE AP-WGT/LAT/MERCHA NT Dale Espinoza PA-C [address] [place] [address] Xr Imaging [facility] for referral (narrative)* Diagnostic Procedure Only (Routine) - Pending Review Specialty Diagnoses / Procedures Referred By Selin vasquez Referred To Contact BR IMAGING Diagnoses Encounter for screening mammogram for malignant neoplasm of breast Procedures SONYA SCREENING W NEYDA SCREENING DIGITAL BREAST TOMOSYNTHESIS BI SCREENING MAMMOGRAPHY BI 2-VIEW BREAST INC CAD Francine Lares MD [address] [place] [address] [facility] [address] [place] [id number] Referral ID Status Reason Start Date Expiration Date Visits Requested Visits Authorized [id number] Pending Review Auto-Generat ed Referral 07/19/2022 08/18/2023 1 1 * Diagnostic Procedure Only (Routine) - Pending Review Specialty Diagnoses / Procedures Referred By Selin vasquez Referred To Contact BR IMAGING Diagnoses Axillary adenopathy Other signs and symptoms in breast Procedures US BREAST LTD LT US BREAST UNI REAL TIME WITH IMAGE LIMITED Francine Lares MD [address] [place] [address] [facility] [address] [place] [address] Referral ID Status Reason Start Date Expiration Date Visits Requested Visits Authorized [id number] Pending Review Auto-Generat ed Referral 07/26/2022 08/18/2023 1 1 * Diagnostic Procedure Only (Routine) - Pending Review Specialty Diagnoses / Procedures Referred By Selin vasquez Referred To Contact XR IMAGING Diagnoses Rib pain Procedures XR RIBS/CHEST 3V AP RIB/OBLS/CXR LEFT RADEX RIBS UNI W/POSTEROANT CH MINIMUM 3 VIEWS Francine Lares MD [address] [place] [address] X[facility] Imaging Referral ID Status Reason Start Date Expiration Date Visits Requested Visits Authorized [id number] Pending Review Auto-Generat ed Referral 07/19/2022 08/18/2023 1 1 * Consult, Test, Treat (Routine) - Authorized Specialty Diagnoses / Procedures Referred By Selin vasquez Referred To Contact Ent - Otolaryngology Diagnoses Right ear pain Procedures CONSULT TO ENT OFFICE/OUTPATIENT [facility] 60-74 MINUTES Francine Lares MD [address] [place] [address] Referral ID Status Reason Start Date Expiration Date Visits Requested Visits Authorized [id number] Authorized PCP Requested Referral 07/19/2022 07/19/2023 1 1 [facility] (n[facility]ative)* Reason appt pt needs cons ult to see Homa Mckeon /Dr. Corea for evaluation of lumbar pain Diagnosis 1 Other spondylosis wi th radiculopathy, lumbar region (M47.26) Referral Organization [facility] Referring Provider First Name Ayanna Referring Provider Last Name Sakina Referring Provider Specialty Family Prac art Referred Organization [facility] urosurgery Referred Provider Homa Mckeon Referred Address [address],[address] Referred Provider Specialty Nurse Uli cotto Referral Priority Routine General Notes Nereyda Sanchez 04/15/2023 03:33:35 PM > referral sent p2p. pt understands she will be contacted to schedule this appt [facility] Other reason for visit Narrativereview labs, refill medication, discuss multiple issues, see treatment plan for further information [facility] Other reason for visit NarrativePT HERE AT REQUEST OF DR VICENTE FOR EVALUATION AND TREATMENT OF CHANGE IN STOOL HABITS AND HISTORY OF IRRITABLE BOWEL SYNDROME AND COLON POLYPS, REFERRAL NOTE RECEIVEDNoEduson Other Reuvqh for visit Narrativereview labs/med refill, discuss multiple issues see treatment planNoEduson Other reason for visit NarrativeNeurosurgery Referral Update [facility] Other Summary Purpose Family History No Family History Records Found Relationship Condition Age at Onset Recorded Date/T maria g Not Specified History of inguinal hernia repair Unknow n Dementia Unknown Inguinal hernia Unknown Advance Directives No Advanced Directives Records Found Advance Directive Response Recorded Date/ Time Advance Directives No March 08, 2017 12:39pm Advance Directive Response Recorded Date/ Time Advance Directives No March 08, 2017 11:39am Reason for Referral Reason evaluate and tr eat Diagnosis 1 Pain in right hip (M 25.551) Referral Organization [facility] Referring Provider First Name Homa Referring Provider Last Name Mckeon Referring Provider Specialty Nurse Pract itioner Referred Organization [facility] Referred Provider Bonnie Slade Referred Address [address] [place], [place],[address] Referred Provider Specialty Pain Medicin e Referral Priority Routine General Notes Susan Ugarte 04:33:20 PM >received today, holding referral for todays visit note to be locked Reason evaluate and t reat for hip pain Diagnosis 1 Pain in right hip (M 25.551) Referral Organization [facility] Referring Provider First Name Homa Referring Provider Last Name Mike Referring Provider Specialty Nurse Pract itioner Referred Organization [facility] Ortho pedics Referred Provider Gume Macedo Referred Address [address],[place],[address] Referred Provider Specialty Orthopedic S urgery Referral Priority Routine General Notes Susan Ugarte 04:34:14 PM >received today, sending p2p at this time for scheduling Reason Aqua therapy - evalu ate and treat Diagnosis 1 Pain in right hip (M 25.551) Diagnosis 2 Lumbar pain (M54.50) Referral Organization [facility] Referring Provider First Name Homa Referring Provider Last Name Mckeon Referring Provider Specialty Nurse Pract itioner Referred Organization [facility] Sched[facility] Referred Address [address], [place],[address] Referred Provider Specialty Physical The rapist Referral Priority Routine Reason appt pt would like to discuss hip, back, knee and sciatic pain Diagnosis 1 Other spondylosis wi th radiculopathy, lumbar region (M47.26) Referral Organization [facility] Referring Provider First Name Ayanna Referring Provider Last Name Sakina Referring Provider Specialty Family Prac art Referred Organization [facility] urosurgery Referred Provider Homa Mckeon Referred Address [address] ,[place],[address] Referred Provider Specialty Nurse Uli cotto Referral Priority Routine General Notes Nereyda Sanchez 07/16/2023 03:06:01 PM > referral sent p2p. pt understands she will be contacted to schedule this appt Reason appt pt is lu gillaim to see any of the providers consult for eval and treatment of rheumatism/prescribing of Plaquenil Diagnosis 1 Rheumatism, unspecif ied (M79.0) Referral Organization [facility] Referring Provider First Name Ayanna Referring Provider Last Name Sakina Referring Provider Specialty Family Prac art Referred Organization [facility] Referred Provider Esteban Saravia Referred Address [address] [facility] [place],[address] Referred Provider Specialty Rheumatology Referral Priority Routine General Notes Nereyda Sanchez 05/14/2022 03:07:43 PM > referral faxed with TE message, last visit note and insurance cards. pt understands that she will be contacted to schedule this appt. Reason appt 05/22/22 at 3pm pt needs consult to evaluate right wrist fracture 10 weeks ago, but continued pain in the right hand/wrist Diagnosis 1 Wrist fracture, righ t (S62.101A) Referral Organization [facility] Referring Provider First Name Ayanna Referring Provider Last Name Sakina Referring Provider Specialty Family Prac art Referred Organization [facility] Ortho pedics Referred Provider Penny Mike Referred Address [address] [place],[address] Referred Provider Specialty Hand Surgery Referral Priority Routine Referral Appointment Date 2022-05-22 General Notes Nereyda Sanchez 04/02/2022 01:53:20 PM > referral sent p2p. pt understands that she will be contacted to schedule this appt. Nereyda Sanchez 04/04/2022 09:15:21 AM > appt scheduled on 05/22/22 at 3pm Reason appt pt needs cons ult to discuss recurrent back pain/discuss injections Diagnosis 1 Other spondylosis wi th radiculopathy, lumbar region (M47.26) Referral Organization [facility] Medicin liseth Restrepo Referring Provider First Name Ayanna Referring Provider Last Name Earleabbi Referring Provider Specialty Family Prac art Referred Organization [facility] Referred Provider Anthony Morales Referred Address [address] [place],[address] Referred Provider Specialty Psychiatry, Neurology (Osteopaths only) Referral Priority Routine General Notes Nereyda Sanchez 04/02/2022 02:48:49 PM > FLORI referral hard faxed with visit note, med list and insurance cards. pt understands that she will be contacted to schedule this appt. Reason appt pt willing t o see whomever can see her first pt needs consult w/ [facility] hematology on [address] / due to elevated WBC count and other cell type/ pro lymphocytes Diagnosis 1 Leukocytosis (D72.82 9) Referral Organization [facility] Yolie Restrepo Referring Provider First Name Ayanna Referring Provider Last Name Sakina Referring Provider Specialty [facility] Prac art Referred Organization [facility] Referred Provider Saqib Coleman Referred Address [address] [place] [place], [place],[address] Referred Provider Specialty Hematology/O ncology Referral Priority Routine General Notes Nereyda Sanchez 04/02/2022 02:41:02 PM > referral faxed with visit note, last several lab results and insurance cards. pt does not have a preference for whom she see and does understand that she will be contacted to schedule this appt. Reason appt pt needs cons ult to evaluate right knee pain Diagnosis 1 Knee pain, right (M2 5.561) Referral Organization [facility] [employer] [place] Referring Provider First Name Ayanna Referring Provider Last Name Sakina Referring Provider Specialty Family Prac art Referred Organization [facility] Referred Provider Bertrand Akins II Referred Address [address] [place],[address] Referred Provider Specialty Orthopedic S urgery Referral Priority Routine General Notes Nereyda Sanchez 02/06/2022 02:16:49 PM > referral sent p2p. pt understands she will be contacted to schedule this appt. Reason appt pt needs cons ult to discuss change in stool habits, history of colon polyps, hx of IBS Diagnosis 1 Change in stool jacquie yesi (R19.4) Referral Organization [facility] Yolie Restrepo Referring Provider First Name Ayanna Referring Provider Last Name Sakina Referring Provider Specialty Family Prac art Referred Organization [facility] Referred Provider Ayanna Milner Referred Address [address] [facility] [address] ,[place], [place],[address] Referred Provider Specialty Gastroentero logy Referral Priority Routine General Notes Nereyda Sanchez 09/13/2021 09:46:36 AM > referral sent p2p. pt will be contacted to schedule this appt. Chief Complaint and Reason for Visit Chief Complaint fall, rt wrist pain R Radical Fx/Head Injury S/P/ fall E03.9 E11.65 E78.5 D64.9 R79.89 Reason for Visit Abrasion Acute hypotension Acute UTI TIP (acute kidney injury) Contusion of leg, right Fall Minor closed head injury Right wrist fracture Sepsis Diabetes Acute UTI Chronic back pain Depression Diabetic neuropathy Fall Hematoma of right lower leg Impaired mobility and activities of daily living Minor closed head injury Right wrist fracture Diabetes Hypertension Hypothyroidism Chief Complaint R Radical Fx/Head In jury S/P/ fall E03.9 E11.65 E78.5 D64.9 R79.89 E11.65 Reason for Visit Acute UTI Chronic back pain Depression Diabetic neuropathy Fall Hematoma of right lower leg Impaired mobility and activities of daily living Minor closed head injury Right wrist fracture Diabetes Hypertension Hypothyroidism Chief Complaint r00.2 Chief Complaint r00.2 r07.81 Chief Complaint r00.2 r07.81 m47.816 Z12.31 Chief Complaint r00.2 r07.81 m47.816 Z12.31 m50.30 Chief Complaint r00.2 r07.81 m47.816 Z12.31 m50.30 e11.65 e78.5 e03.9 z79.899 Chief Complaint e78.5 z79.899 e03.9 e11.65 Chief Complaint e78.5 z79.899 e03.9 e11.65 MM47.26;M25.559;M25.561 Additional Source Comments INFORMATION SOURCE (unrecogn ized section and content) DATE CREATED AUTHOR [facility]06/2021 [facility] DATE CREATED AUTHOR AUTHOR'S ORGANIZ ATION 08/16/2022 [facility] ical Center DATE CREATED AUTHOR AUTHOR'S ORGANIZ ATION 11/13/2022 [facility] DATE CREATED AUTHOR AUTHOR'S ORGANIZ ATION 02/17/2023 Harish Barrera [facility] ical Center DATE CREATED AUTHOR AUTHOR'S ORGANIZ ATION 05/03/2023 [facility] DATE CREATED AUTHOR AUTHOR'S ORGANIZ ATION 08/10/2023 [facility] DATE CREATED AUTHOR AUTHOR'S ORGANIZ ATION 08/30/2023 [facility] dical [facility] [address] DATE CREATED AUTHOR AUTHOR'S ORGANIZ ATION 08/31/2023 [facility] Source Comments (unrecognize d section and content) In the event this informatio n is protected by the Federal Confidentiality of Alcohol and Drug Abuse Patient Records regulations: The Federal rules restrict any use of the information to criminally investigate or prosecute any alcohol or drug abuse patient.[facility] the event this information is protected by the Federal Confidentiality of Alcohol and Drug Abuse Patient Records regulations: The Federal rules restrict any use of the information to criminally investigate or prosecute any alcohol or drug abuse patient.[facility] the event this information is protected by the Federal Confidentiality of Alcohol and Drug Abuse Patient Records regulations: The Federal rules restrict any use of the information to criminally investigate or prosecute any alcohol or drug abuse patient.[facility] the event this information is protected by the Federal Confidentiality of Alcohol and Drug Abuse Patient Records regulations: The Federal rules restrict any use of the information to criminally investigate or prosecute any alcohol or drug abuse patient.[facility] Hospital[facility] the event this information is protected by the Federal Confidentiality of Alcohol and Drug Abuse Patient Records regulations: The Federal rules restrict any use of the information to criminally investigate or prosecute any alcohol or drug abuse patient.[facility] HospitalIn the event this information is protected by the Federal Confidentiality of Alcohol and Drug Abuse Patient Records regulations: The Federal rules restrict any use of the information to criminally investigate or prosecute any alcohol or drug abuse patient.[facility] the event this information is protected by the Federal Confidentiality of Alcohol and Drug Abuse Patient Records regulations: The Federal rules restrict any use of the information to criminally investigate or prosecute any alcohol or drug abuse patient.[facility] REASON FOR VISIT (unrecogniz ed section and content) Reason Comments Consult Reason Comments Care Coordination Results Reason Comments lymphocytosis Reason Comments Leukemia 3 month follow up Reason Comments Referral Information ENT Reason Comments CLL (chronic lymphocytic leukemia) Reason Comments Toenail Care Care Teams (unrecognized sec tion and content) Team Status: Inactive Member Role Status Dates Ayanna Vicente , DO Primary Care Provide r, Attending Provider, Family Provider Active Team Status: Inactive Member Role Status Dates Ayanna Vicente , DO Primary Care Provider, Family Provid er Active Galo Max MD Admit Provider, Attending Provider A ctive Rachel Penn , ALLYSSA Other Provider Active Josette Orourke , ALLYSSA Other Provider Active Estrellita Camejo , ALLYSSA Other Provider Active Ny Das , ALLYSSA Other Provider Active Marcie Acosta RN Other Provider Active Laura Wall , ALLYSSA Other Provider Active Yuliana Hale MD Other Provider Active Herman Kevin MD Other Provider Active Kitty Powell , SILK HANGER Other Provider Active Madeline Juarez , DO Other Provider Active Marcio Hernandez MD Other Provider Active Loco Velasquez , DO Other Provider Active Elgin Irby MD Other Provider Active Adali Salamanca MD Other Provider Active Valarie Riojas , ANP-BC Other Provider Active Max Paulino MD Other Provider Active Faisal Abel MD Other Provider Active Bertram Garrison MD Other Provider Active Bobby Guevara MD Other Provider Active Pietro Chaparro MD Other Provider Active Bin Rock MD Other Provider Active Michael Burnett MD Other Provider Active Yanira Najera , BERTA-C Other Provider Active Salas Winslow MD Other Provider Active Joss Stoner MD Other Provider Active Terrie Hua MD Other Provider Active Chase Glover MD Other Provider Active Meron Estrada , DO Other Provider Active Hasmukh Palacios MD Other Provider Active Felipe Howard , DO Other Provider Active Suki Montanez APRN Other Provider Active Santiago Fontaine , DO Other Provider Active Tyson De Los Santos MD Other Provider Active Kathy Taylor RN Other Provider Active Pietro Corral MD Other Provider Active Penny Mike MD Other Provider Active PABLO Mason Other Provider Active Gume Macedo , DO Other Provider Active Bertrand Akins II, MD Other Provider Active Team Status: Inactive Member Role Status Dates Ayanna Vicente , DO Primary Care Provider, Family Provid er Active James Redding MD Emergency Provider Active Bertram Garrison MD Admit Provider, Attending Provider Active Team Status: Active Member Role Status Dates Ayanna Vicente , DO Family Provider Active Ayanna Vicente , DO Primary Care Provider Active [employer] Relationship Specialty Start Date End Date Ayanna Vicente, DO [address] [place] [id number] PCP - General Family Medicine 08/01/11 Ayanna Vicente, DO [address] [place] [id number] Referring Family Medicine 10/04/20 Ayanna Vicente, DO [address] [place] [address] Referring Family Medicine 01/09/21 [employer] Relationship Specialty Start Date End Date Ayanna Vicente, DO [address] [place] [phone] PCP - General Family Medicine 08/01/11 Ayanna Vicente, DO [address] [place] [address] Referring Family Medicine 10/04/20 Ayanna Vicente, DO [address] [place] [address] Referring Family Medicine 01/09/21 [employer] Relationship Specialty Start Date End Date Ayanna Vicente, DO [address] [place] [phone] PCP - General Family Medicine 08/01/11 Ayanna Vicente, DO [address] [place] [phone] Referring Family Medicine 10/04/20 Ayanna Vicente, DO [address] [place] [phone] Referring Family Medicine 01/09/21 [employer] Relationship Specialty Start Date End Date Ayanna Vicente, DO [address] [place] [address] PCP - General Family Medicine 08/01/11 Ayanna Vicente, DO [address] [place] [phone] Referring Family Medicine 10/04/20 Ayanna Vicente, DO [address] [place] [phone] Referring Family Medicine 01/09/21 Team Status: Inactive Member Role Status Dates Ayanna Vicente DO Primary Care Provider, Family Provid er Active Francine Lares MD Attending Provider Active Team Status: Inactive Member Role Status Dates Ayanna Vicente DO Primary Care Provider, Family Provid er Active PABLO Sam Attending Provider Active [employer] Relationship Specialty Start Date End Date Ayanna Vicente DO [address] [place] [phone] PCP - General Family Medicine 08/01/11 Ayanna Vicente DO [address] [place] [address] Referring Family Medicine 10/04/20 Ayanna Vicente DO [address] [place] [address] Referring Family Medicine 01/09/21 [employer] Relationship Specialty Start Date End Date Ayanna Vicente MD [address] [facility] [place] [address] PCP - General Family Medicine 12/10/22 [employer] Relationship Specialty Start Date End Date Ayanna Vicente MD [address] [facility] [place] [address] PCP - General Family Medicine 12/10/22 Goals (unrecognized section and content) Goals may be documented in a n alternate section FOR RECORDS PERTAINING TO PATIENTS WHO ARE OR HAVE BEEN ENROLLED IN A CHEMICAL DEPENDENCY/SUBSTANCEABUSE PROGRAM, SOME INFORMATION MAY BE OMITTED. This clinical summary was aggregated from multiple sources. Caution should be exercised in using it in the provision of clinical care. This summary normalizes information from multiple sources, and as a consequence, information in this document may materially change the coding, format and clinical context of patient data. In addition, data may be omitted in some cases. CLINICAL DECISIONS SHOULD BE BASED ON THE PRIMARY CLINICAL RECORDS. [email or web address] provides no warranty or guarantee of the accuracy or completeness of information in this document.
[2023-09-01 09:05] VITALS: BP 128/73; PULSE 74; RESP 16; TEMP 37; O2SAT 93
[2023-09-01 09:12] LABS: Glucometer 192 mg/dL (74-106)
[2023-09-01 09:38] VITALS: BP 120/64; PULSE 69; RESP 18; O2SAT 94
[2023-09-01 09:40] VITALS: BP 128/87; PULSE 70; RESP 18; O2SAT 92
[2023-09-01] MEDS: LIDOCAINE HCL 2% PF 100 MG/5 ML VIAL 1 ML INJ (09:41)
[2023-09-01] MEDS: IOHEXOL 240 MG/ML - 10 ML VIAL 12 MG INJ (09:41)
[2023-09-01] MEDS: BUPIVACAINE HCL 0.25% PF 25 MG/10 ML VIAL 2 ML INJ (09:41)
[2023-09-01] MEDS: TRIAMCINOLONE ACETONIDE 40 MG/ML VIAL INJ (09:42)
--- NOTE | 2023-09-01 10:52 | W.PM.PROCNOT ---
Date of procedure: 09/01/23 Procedure: Date of procedure: 09/01/23 Pre-op diagnosis: Right sacroiliitis Post-op diagnosis: same as pre-op Procedure: Procedure: Right sacroiliac joint injection Medications: Bupivacaine 0.25% 3cc, kenalog 40mg After informed consent was obtained, the patient was brought to the medical procedure unit and placed in the prone position, when a timeout was completed verifying correct patient, procedure, site, positioning, implant, and/or special equipment.? The skin overlying the area was prepped and draped in standard sterile fashion using alcohol.? A 25-gauge needle was inserted towards the right sacroiliac joint under direct fluoroscopic imaging.? Needle tip was advanced until the joint was encountered.? We instilled a total of 3 mL of solution.? Postoperatively needles were removed.? The patient tolerated the procedure well without complication.? The patient reported reduction in pain symptoms postoperatively. Anesthesia: Local Surgeon: Som Azul Pathology: none sent Condition: stable Disposition: no change ?
== END 2023-09-01 09:51 | disposition home or self-care (01) ==
LOC: SURGOUT 08:51
PROVIDERS: Anesthesiology; PCP Family Medicine; Visit Provider Anesthesiology Pain Medicine
DX: M46.1 Sacroiliitis, not elsewhere classified (principal); M48.062 Spinal stenosis, lumbar region with neurogenic claudication; M51.36 Other intervertebral disc degeneration, lumbar region; M51.37 Other intervertebral disc degeneration, lumbosacral region; Z79.84 Long term (current) use of oral hypoglycemic drugs
CPT/HCPCS: 27096; 36415; 72148; 82948; J0665; J3301; Q9966

== ENCOUNTER 2023-09-01 10:00 | Outpatient (OUT) | payer MEDICARE, SELFPAY ==
--- NOTE | 2023-09-01 09:40 | P.ON_ITS ---
Date of procedure: 09/01/23 Pre-op diagnosis: Right sacroiliitis Post-op diagnosis: same as pre-op Procedure: Procedure: Right sacroiliac joint injection Medications: Bupivacaine 0.25% 3cc, kenalog 40mg After informed consent was obtained, the patient was brought to the medical p rocedure unit and placed in the prone position, when a timeout was completed verifying correct patient, procedure, site, positioning, implant, and/or special equipment.? The skin overlying the area was prepped and draped in standard sterile fashion using alcohol.? A 25-gauge needle was inserted towards the right sacroiliac joint under direct fluoroscopic imaging.? Needle tip was advanced until the joint was encountered.? We instilled a total of 3 mL of solution.? Postoperatively needles were removed.? The patient tolerated the procedure well without complication.? The patient reported reduction in pain symptoms postoperatively. Anesthesia: Local Surgeon: Som Azul Pathology: none sent Condition: stable Disposition: no change
--- NOTE | 2023-09-01 10:05 | MR_ITS ---
[place] [id number] Patient Name: MIGUEL A APARICIO MRN: [facility]:[id number] date: 1940 Sex: F Assigned Patient Location: [facility] Current Patient Location: MRI Accession/Order Number: [id number] Exam Date: 09/01/2023 10:42 Report Date: 09/01/2023 13:35 At the request of: DONNA DING Procedure: MR lumbar spine wo con MRI lumbar spine without contrast, 09/01/2023. HISTORY: Back pain. Previous lumbar spine surgery. Right leg pain and weakness. COMPARISON: None. TECHNIQUE: Multiplanar, multisequence MRI imaging of the lumbar spine without contrast. FINDINGS: There are postoperative changes from posterior lumbar interbody fusion and fixation at L4-L5. Alignment normal. No spondylolisthesis. No compression fractures. L5-S1, moderate to severe degenerative disc disease most severe on the left side of the disc space. No central spinal canal stenosis. Disc space narrowing and osteophytes result in moderate left foraminal narrowing. Mild right foraminal narrowing. L4-L5, spinal canal is decompressed. No spinal stenosis. No significant foraminal narrowing. L3-L4, severe degenerative disc disease most severe on the right side of the disc space. Mild facet arthropathy. There is ligamentum flavum thickening. Degenerative changes result in moderate spinal canal stenosis. Disc space narrowing and osteophytes result in severe right foraminal narrowing. Mild left foraminal narrowing. L2-L3, severe degenerative disc disease. Diffuse disc bulge. Mild spinal stenosis. Moderate foraminal narrowing. L1-L2, moderate degenerative disc disease. No spinal stenosis or foraminal narrowing. No abnormal signal in the conus medullaris. No paraspinal masses. MR/MR lumbar spine wo con IMPRESSION: 1. There are postoperative changes at L4-L5 from posterior lumbar interbody fusion and fixation. No spinal stenosis or foraminal narrowing at this level. 2. At L3-L4, there are severe degenerative disc disease most severe on the right side of the disc space. Disc space narrowing and osteophytes result in severe right foraminal narrowing. There is moderate spinal canal stenosis. 3. At L2-L3, there is severe degenerative disc disease. Mild spinal stenosis. Mild foraminal narrowing. 4. Moderate to severe degenerative disc disease at L5-S1. No spinal canal stenosis. There is moderate left foraminal narrowing. Electronically authenticated by: WILLIAM GREER Date: 09/01/2023 13:35
--- OUTSIDE RECORDS SUMMARY | 2023-09-01 10:09 | XMS_ITS | CCD ---
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 Name Role Phone Ayanna Vicente Primary Care Provider Ayanna Vicente Unavailable Ayanna Vicente Unavailable Ayanna Vicente Unavailable Ayanna Milner Unavailable DO Ayanna Vicente Primary Care Provider MD James Redding Emergency Provider MD Bertram Garrison Admit Provider MD Bertram Garrison Attending Provider MD Galo Max Admit Provider MD Galo [...] Other Provider DO Loco Velasquez Other Provider [phone] MD Elgin Irby Other Provider MD Adali Salamanca Other Provider Beulah, ANP-BC Valarie Other Provider [phone] MD Max Paulino Other Provider [phone] MD Faisal Abel Other Provider MD Bertram Garrison Other Provider MD Bobby Guevara Other Provider MD Pietro Chaparro Other Provider MD Bin Rock Other Provider MD Michael Burnett Other Provider BERTA Najera-Aquiles Mane Other Provider MD Salas Winslow Other Provider MD Joss [...] Other Provider MD Penny Mike Other Provider [phone] PABLO Quarles Other Provider DO Gume Macedo Other Provider MD Bertrand Akins II Other Provider DO Ayanna Vicente Attending Provider Ayanna Vicente DO Primary Care Provider [phone] Ayanna Vicente DO Unavailable Ayanna Vicente DO Unavailable DO Ayanna Vicente Primary Care Provider Ayanna Vicente DO Primary Care Provider Ayanna Vicente DO Unavailable Ayanna Vicente DO Unavailable [phone] DO Ayanna Vicente Primary Care Provider Sakina, DO Izaguirre Attending Provider MD Francine Lares Attending Provider Ayanna Vicente Primary Care Unavailable PABLO Sheth Attending Provider [phone] DO Ayanna Vicente Primary Care Provider [phone] DO Ayanna Vicente Attending Provider MD Francine Lares Attending Provider APBLO Sheth Attending Provider DR AYANNA VICENTE Primary Care Unavailable VERNONMIPATHJoslyn ., NARENDRANATH Attending Abigail vailable MARLEN ., NARENDRANATH Admitting Abigail vailable Ayanna Vicente Primary Care Physician [phone] SUSAN RANDOLPH Attending Unavailable SUSAN RANDOLPH Attending Unavailable DO Ayanna Vicente Primary Care Provider [phone] DO Ayanna Vicente Attending Provider [phone] Francine Lares Admitting Unavailable Ayanna Vicente Primary [...] Admitting Unavailable Sakina, Ayanna Primary Care Unavailable Aynana Vicente Attending Unavailable Sakina, Ayanna Admitting Unavailable Sakina, Ayanna Primary Care Unavailable Francine Lares Admitting Unavailable Ratnau, Francine Attending Unavailable Sharda Sheth Attending Unavailable Ayanna Vicenet Primary Care Unavailable Sharda Sheth Admitting Unavailable Junior Butterfield Unavailable RATNAU, FRANCINE Referring Unavailable OMER, FRANCINE Attending Unavailable AYANNA VICENTE Primary Care Unavailable JANETLOU, FRANCINE Referring Unavailable AYANNA VICENTE Primary Care Unavailable JEFELEAH, FRANCINE Referring Unavailable OMER, FRANCINE Attending Unavailable AYANNA VICENTE Primary Care Unavailable OMER, FRANCINE Referring Unavailable AYANNA VICENTE Primary Care Unavailable Homa Mckeon Unavailable Ayanna Vicente MD Primary Care Provider JAMES SMITH Attending Unavailable Latha ROMEO, Som Bryson Attending Unavailable Allergies Allergy Classification Reported Allergen(s) Allergy Type Date of Onset Reaction(s) Facility Cephalosporins (antibiotic) (1 source) Cephalosporins (Antibiotic) Drug Allergy 02-20-20 04 Hives, Swelling [facility] (20 sources) cefpodoxime; Translations: [Vantin] Drug Allergy 12-24-19 16 Eye swelling (finding) [facility] (20 sources) cepahlosporins Propensity to adverse reactions Unknown [facility] Other (20 sources) Cephalosporins (Antibiotic); Translations: [Cephalosporins] Allergy to substance 02-20-20 04 Hives, Swelling, Swelling (morphologic abnormality), Eye swelling (finding), Unknown [facility] (9 sources) cefpodoxime; Translations: [CEFPODOXIME] Drug Allergy 02-17-20 19 Unknown, Other [facility] (1 source) Amoxicillin Drug Allergy 12-24-19 16 [facility] (15 sources) Medicinal cephalosporin and acting as antibacterial agent (FN) Drug allergy Unknown [facility] Other (2 sources) Bacitracin / Neomycin / Polymyxin B Drug Allergy Unknown [facility] Other Medications Current Medications Medication Drug Class(es) [...] incontinence, # 90 tab(s), Refills(s) 3, Pharmacy: [facility], 178, cm, 02/11/23 11:43:00 EDT, Height/Length [...] 4:43pm docusate sodium 50 mg / sennosides, mcc 8.6 mg oral tablet (9 sources) Start: [...] by another Health Care Provider) Start: 02-20-[facility].5-25 TB Indications: Other specified idiopathic [...] Basophils (Bld) [#/Vol] 0.00 10*3/uL Normal <0.11 [facility] Comment on above: Order Comment: Speci men Type: BLOOD SPECIMEN Ordering Facility: [facility] Address: [address] [place] [address] Performed By: #### 5 7021-8 #### [facility] CLIA [id number] [address] [id number] [facility] CLIA [id number] [address] [place] [address] [place] Basophils/100 WBC (Bld) 0.0 % Normal [facility] Comment on above: Order Comment: Speci men Type: BLOOD SPECIMEN Ordering Facility: [facility] Address: [address] [place] [address] Performed By: #### 5 7021-8 #### [facility] CLIA [id number] [address] [place] [address] LAB CLIA [id number] [address] [place] [address] [place] Differential cell count method Nom (Bld) Manual Normal [facility] Comment on above: Order Comment: Speci men Type: BLOOD SPECIMEN Ordering Facility: [facility] Address: [address] [place] [address] Performed By: #### 5 7021-8 #### [facility] CLIA [id number] [address] [place] [address] LAB CLIA [id number] [address] [place] [address] [place] Eosinophils (Bld) [#/Vol] 0.19 10*3/uL Normal <0.46 [facility] Comment on above: Order Comment: Speci men Type: BLOOD SPECIMEN Ordering Facility: [facility] Address: [address] [place] [address] Performed By: #### 5 7021-8 #### [facility] CLIA [id number] [address] [place] [address] LAB CLIA [id number] [address] [place] [address] [place] Eosinophils/100 WBC (Bld) 1.0 % Normal [facility] Comment on above: Order Comment: Speci men Type: BLOOD SPECIMEN Ordering Facility: [facility] Address: [address] [place] [address] Performed By: #### 5 7021-8 #### [facility] CLIA [id number] [address] [place] [address] LAB CLIA [id number] [address] [place] [address] [place] Erythrocyte distribution width (RBC) [Ratio] 14.4 % Normal 11.5-15.0 [facility] Comment on above: Order Comment: Speci men Type: BLOOD SPECIMEN Ordering Facility: [facility] Address: [address] [place] [address] Performed By: #### 5 7021-8 #### [facility] CLIA [id number] [address] [place] [address] LAB CLIA [id number] [address] [place] [address] [place] Hematocrit (Bld) [Volume fraction] 40.8 % Normal 36.0-46.0 [facility] Comment on above: Order Comment: Speci men Type: BLOOD SPECIMEN Ordering Facility: [facility] Address: [address] [place] [address] Performed By: #### 5 7021-8 #### [facility] CLIA [id number] [address] [place] [address] LAB CLIA [id number] [address] [place] [address] [place] Hemoglobin (Bld) [Mass/Vol] 12.9 g/dL Normal 11.5-15.5 [facility] Comment on above: Order Comment: Speci men Type: BLOOD SPECIMEN Ordering Facility: [facility] Address: [address] [id number] Performed By: #### 5 7021-8 #### [facility] CLIA [id number] [address] [place] [address] LAB CLIA [id number] [address] [place], [place] [address] [place] Lymphocytes (Bld) [#/Vol] 13.41 10*3/uL High 1.00-4.00 [facility] Comment on above: Order Comment: Speci men Type: BLOOD SPECIMEN Ordering Facility: [facility] Address: [address] [place] [address] Performed By: #### 5 7021-8 #### [facility] CLIA [id number] [address] [place] [address] LAB CLIA [id number] [address] [place] [address] [place] Lymphocytes/100 WBC (Bld) 69.0 % Normal [facility] Comment on above: Order Comment: Speci men Type: BLOOD SPECIMEN Ordering Facility: [facility] Address: [address] [place] [address] Performed By: #### 5 7021-8 #### [facility] CLIA [id number] [address] [place] [address] LAB CLIA [id number] [address] [place] [address] [place] MCH (RBC) [Entitic mass] 28.7 pg Normal 26.0-34.0 [facility] Comment on above: Order Comment: Speci men Type: BLOOD SPECIMEN Ordering Facility: [facility] Address: [address] [place] [address] Performed By: #### 5 7021-8 #### [facility] CLIA [id number] [address] [place] [address] LAB CLIA [id number] [address] [place] [address] [place] MCHC (RBC) [Mass/Vol] 31.6 g/dL Normal 30.5-36.0 [facility] Comment on above: Order Comment: Speci men Type: BLOOD SPECIMEN Ordering Facility: [facility] Address: [address] [place] [address] Performed By: #### 5 7021-8 #### [facility] CLIA [id number] [address] [place] [address] LAB CLIA [id number] [address] [place] [address] [place] MCV (RBC) [Entitic vol] 90.7 fL Normal 80.0-100.0 [facility] Comment on above: Order Comment: Speci men Type: BLOOD SPECIMEN Ordering Facility: [facility] Address: [address] [place] [address] Performed By: #### 5 7021-8 #### [facility] CLIA [id number] [address] [place] [address] LAB CLIA [id number] [address] [place] [address] [place] Monocytes (Bld) [#/Vol] 0.39 10*3/uL Normal <0.87 [facility] Comment on above: Order Comment: Speci men Type: BLOOD SPECIMEN Ordering Facility: [facility] Address: [address] [place] [address] Performed By: #### 5 7021-8 #### [facility] CLIA [id number] [address] [place] [address] LAB CLIA [id number] [address] [place] [address] [place] Monocytes/100 WBC (Bld) 2.0 % Normal [facility] Comment on above: Order Comment: Speci men Type: BLOOD SPECIMEN Ordering Facility: [facility] Address: [address] [place] [address] Performed By: #### 5 7021-8 #### [facility] CLIA [id number] [address] [place] [address] LAB CLIA [id number] [address] [place] [address] [place] Neutrophils (Bld) [#/Vol] 5.44 10*3/uL Normal 1.45-7.50 [facility] Comment on above: Order Comment: Speci men Type: BLOOD SPECIMEN Ordering Facility: [facility] Address: [address] [place] [address] Performed By: #### 5 7021-8 #### [facility] CLIA [id number] [address] [place] [address] LAB CLIA [id number] [address] [place] [address] [place] Neutrophils/100 WBC (Bld) 28.0 % Normal [facility] Comment on above: Order Comment: Speci men Type: BLOOD SPECIMEN Ordering Facility: [facility] Address: [address] [place] [address] Performed By: #### 5 7021-8 #### [facility] CLIA [id number] [address] [place] [address] LAB CLIA [id number] [address] [place] [address] [place] Nucleated RBC (Bld) [#/Vol] 10*3/uL Normal <0.01 [facility] Comment on above: Order Comment: Speci men Type: BLOOD SPECIMEN Ordering Facility: [facility] Address: [address] [place] [address] Performed By: #### 5 7021-8 #### [facility] CLIA [id number] [address] [place] [address] LAB CLIA [id number] [address] [place] [address] [place] Nucleated RBC/100 WBC (Bld) [Ratio] 0.0 /100 WBC Normal [facility] Comment on above: Order Comment: Speci men Type: BLOOD SPECIMEN Ordering Facility: [facility] Address: [address] [place] [address] Performed By: #### 5 7021-8 #### [facility] CLIA [id number] [address] [place] [address] LAB CLIA [id number] [address] [place] [address] [place] Ovalocytes LM Ql (Bld) Few Normal [facility] Comment on above: Order Comment: Speci men Type: BLOOD SPECIMEN Ordering Facility: [facility] Address: [address] [place] [address] Performed By: #### 5 7021-8 #### [facility] CLIA [id number] [address] [place] [address] LAB CLIA [id number] [address] [place] [address] [place] Platelet mean volume (Bld) [Entitic vol] 10.5 fL Normal 9.0-12.7 [facility] Comment on above: Order Comment: Speci men Type: BLOOD SPECIMEN Ordering Facility: [facility] Address: [address] [place] [address] Performed By: #### 5 7021-8 #### [facility] CLIA [id number] [address] [place] [address] LAB CLIA [id number] [address] [place] [address] [place] Platelets (Bld) [#/Vol] 276 10*3/uL Normal 150-400 [facility] Comment on above: Order Comment: Speci men Type: BLOOD SPECIMEN Ordering Facility: [facility] Address: [address] [place] [address] Performed By: #### 5 7021-8 #### [facility] CLIA [id number] [address] [place] [address] LAB CLIA [id number] [address] [place] [address] [place] Platelets Estimate (Bld) [#/Vol] Adequate Normal [facility] Comment on above: Order Comment: Speci men Type: BLOOD SPECIMEN Ordering Facility: [facility] Address: [address] [place] [address] Performed By: #### 5 7021-8 #### [facility] CLIA [id number] [address] [place] [address] LAB CLIA [id number] [address] [place] [address] [place] Polychromasia LM Ql (Bld) Slight Normal [facility] Comment on above: Order Comment: Speci men Type: BLOOD SPECIMEN Ordering Facility: [facility] Address: [address] [place] [address] Performed By: #### 5 7021-8 #### [facility] CLIA [id number] [address] [place] [address] LAB CLIA [id number] [address] [place] [address] [place] RBC (Bld) [#/Vol] 4.50 10*6/uL Normal 3.90-5.20 [facility] Comment on above: Order Comment: Speci men Type: BLOOD SPECIMEN Ordering Facility: [facility] Address: [address] [place] [address] Performed By: #### 5 7021-8 #### [facility] CLIA [id number] [address] [place] [address] LAB CLIA [id number] [address] [place] [address] [place] RED CELL MORPH Reviewed: see result s of individual morphologies Normal [facility] Comment on above: Order Comment: Speci men Type: BLOOD SPECIMEN Ordering Facility: [facility] Address: [address] [place] [address] Performed By: #### 5 7021-8 #### [facility] CLIA [id number] [address] [place] [address] LAB CLIA [id number] [address] [place], [place] [address] [place] WBC (Bld) [#/Vol] 19.43 10*3/uL High 3.70-11.00 [facility] Comment on above: Order Comment: Speci men Type: BLOOD SPECIMEN Ordering Facility: [facility] Address: [address] [place] [address] Performed By: #### 5 7021-8 #### [facility] CLIA [id number] [address] [place], [place] [address] [facility] CLIA [id number] [address] [place] [address] [place] CNOVSPon 08-08-2023 CNOVSP Visit (SP) Office ([place]) KATHY WASHBURN ([id number]) 1940 F Date Time Provider Department 08/08/23 2:15 PM FRANCINE LARES During your visit today, we recorded the following information about you: Temperature Pulse Respiration Blood pressure 97.3 degrees 74/minute 18/minute 136/80 Weight 105.2 kg Francine Lares MD 08/08/2023 2:59 PM Signed PATIENT NAME: Kathy Washburn CLINIC NO.: [id number] ATTENDING PHYSICIAN: Francine Lares MD DATE OF [...] Range St (more content not included)... Normal [facility] metabolic 2000 panelon 08-08-2023 Albumin [Mass/Vol] 4.4 g/dL Normal 3.9-4.9 [facility] Comment on above: Order Comment: Speci men Type: BLOOD SPECIMEN Ordering Facility: [facility] Address: [address] [place] [address] Performed By: #### 2 4323-8 #### [facility] CLIA [id number] [address] [place] [address] ALP [Catalytic activity/Vol] 121 U/L Normal 34-123 [facility] Comment on above: Order Comment: Speci men Type: BLOOD SPECIMEN Ordering Facility: [facility] Address: [address] [place] [address] Performed By: #### 2 4323-8 #### [facility] CLIA [id number] [address] [place] [address] ALT [Catalytic activity/Vol] 30 U/L Normal 7-38 [facility] Comment on above: Order Comment: Speci men Type: BLOOD SPECIMEN Ordering Facility: [facility] Address: [address] [place] [address] Performed By: #### 2 4323-8 #### [facility] CLIA [id number] [address] [place] [address] Anion gap [Moles/Vol] 9 mmol/L Normal 9-18 [facility] Comment on above: Order Comment: Speci men Type: BLOOD SPECIMEN Ordering Facility: [facility] Address: [address] [place] [address] Performed By: #### 2 4323-8 #### [facility] CLIA [id number] [address] [place] [address] AST [Catalytic activity/Vol] 29 U/L Normal 13-35 [facility] Comment on above: Order Comment: Speci men Type: BLOOD SPECIMEN Ordering Facility: [facility] Address: [address] [place] [address] Performed By: #### 2 4323-8 #### [facility] CLIA [id number] [address] [place] [address] Bilirubin [Mass/Vol] 0.3 mg/dL Normal 0.2-1.3 [facility] Comment on above: Order Comment: Speci men Type: BLOOD SPECIMEN Ordering Facility: [facility] Address: [address] [place], [place] [address] Performed By: #### 2 4323-8 #### [facility] CLIA [id number] [address] [place] [address] Calcium [Mass/Vol] 10.1 mg/dL Normal 8.5-10.2 [facility] Comment on above: Order Comment: Speci men Type: BLOOD SPECIMEN Ordering Facility: [facility] Address: [address] [place] [address] Performed By: #### 2 4323-8 #### [facility] CLIA [id number] [address] [place] [address] Chloride [Moles/Vol] 103 mmol/L Normal 97-105 [facility] Comment on above: Order Comment: Speci men Type: BLOOD SPECIMEN Ordering Facility: [facility] Address: [address] [place] [address] Performed By: #### 2 4323-8 #### [facility] CLIA [id number] [address] [place] [address] CO2 [Moles/Vol] 28 mmol/L Normal 22-30 [facility] Comment on above: Order Comment: Speci men Type: BLOOD SPECIMEN Ordering Facility: [facility] Address: [address] [place] [address] Performed By: #### 2 4323-8 #### [facility] CLIA [id number] [address] [place] [address] Creatinine [Mass/Vol] 1.33 mg/dL High 0.58-0.96 [facility] Comment on above: Order Comment: Speci men Type: BLOOD SPECIMEN Ordering Facility: [facility] Address: [address] [place] [address] Performed By: #### 2 4323-8 #### [facility] CLIA [id number] [address] [place] [address] Creatinine and Glomerular filtration rate.predicted panel (S/P/Bld) 40 mL/min/1.73m??? Low >=60 [facility] Comment on above: Order Comment: Speci johnna Type: BLOOD SPECIMEN Ordering Facility: [facility] Address: [address] [place] [address] Result Comment: Aimee mated Glomerular Filtration Rate [...] GFR. Performed By: #### 2 4323-8 #### [facility] CLIA [id number] [address] [place] [address] Glucose [Mass/Vol] 207 mg/dL High 74-99 [facility] Comment on above: Order Comment: Speci johnna Type: BLOOD SPECIMEN Ordering Facility: [facility] Address: [address] [place] [address] Result Comment: The [place] Diabetes Association (ADA) provides guidance for cutoff [...] Standards of Medical Care in Diabetes 2016, [place] Diabetes Association. Diabetes Care. 2016.39(Suppl 1). Performed By: #### 2 4323-8 #### [facility] CLIA [id number] [address] [place] [address] Potassium [Moles/Vol] 4.9 mmol/L Normal 3.7-5.1 [facility] Comment on above: Order Comment: Speci men Type: BLOOD SPECIMEN Ordering Facility: [facility] Address: [address] [place], [place] [address] Performed By: #### 2 4323-8 #### [facility] CLIA [id number] [address] [place] [address] Protein [Mass/Vol] 7.5 g/dL Normal 6.3-8.0 [facility] Comment on above: Order Comment: Speci men Type: BLOOD SPECIMEN Ordering Facility: [facility] Address: [address] [place] [address] Performed By: #### 2 4323-8 #### [facility] CLIA [id number] [address] [place] [address] Sodium [Moles/Vol] 140 mmol/L Normal 136-144 [facility] Comment on above: Order Comment: Speci men Type: BLOOD SPECIMEN Ordering Facility: [facility] Address: [address] [place] [address] Performed By: #### 2 4323-8 #### [facility] CLIA [id number] [address] [place] [address] Urea nitrogen [Mass/Vol] 46 mg/dL High 7-21 [facility] Comment on above: Order Comment: Speci men Type: BLOOD SPECIMEN Ordering Facility: [facility] Address: [address] [place] [address] Performed By: #### 2 4323-8 #### [facility] CLIA [id number] [address] [place] [address] XR knee RT 4V*on 04-24-2023 XR knee RT 4V* [facility] [place] [address] [place] [address] XRay Report Signed Patient: Kathy Washburn MR#: [id number] : 1940 Acct:[id number] Age/Sex: 82 / F ADM Date: 04/24/23 Loc: XD Room: Type: [facility] Attending Dr: Ayanna Vicente DO Copies to: Ayanna Vicente DO Ordering Provider: Ayanna Vicente DO Date of Service: 04/24/23 XR/XR lumbar spine AP/LAT/FLX/EXT: M47.26 ([id number]) XR/XR knee RT 4V*: M25.561 ([id number]) XR/XR hip BI w PEL1V: M25.559 LUMBAR [...] Rodriguez Jr., LyndonOArmando04/24/2023 3:10 PM Dictation Location: [place] [address] Transcribed By: [facility] 04/24/23 1510 Dictated By: Galo Rodriguez Jr, DO 04/24/23 1508 Signed By: 04/24/23 1510 Normal [facility] A1C with Estimated Average G [facility] 04-09-2023 Glucose [Mass/Vol] 200 mg/dL Normal [facility] Comment on above: Order Comment: Reaso n for Exam Diabetes type 2, uncontrolled Result Comment: PERF ORMED BY: [facility] [address] [place] [address] PATHOLOGIST PATHOLOGY TECH MATHIEU RASCON M.D. Performed By: #### A 1C [facility] #### [facility] [address] HbA1c (Bld) [Mass fraction] 8.6 % High 4.3-5.6 [facility] Comment on above: Order Comment: Reaso n for Exam Diabetes type 2, uncontrolled Result Comment: Incr eased risk for diabetes: 5.7 - 6.4 diabetes: >6.4 glycemic control for adults with diabetes: <7.0 Performed By: #### A 1C [facility] #### [facility] [address] Alanine aminotransferase [En zymatic activity/volume] in Serum or PlasmaOrdered By: Ayanna Vicente on 04-09-2023 ALT [Catalytic activity/Vol] 25 U/L 7-52 [facility] Albumin [Mass/volume] in Ser um or Plasma by Bromocresol green (BCG) dye binding methoOrdered By: Ayanna Vicente on 04-09-2023 Albumin BCG dye [Mass/Vol] 4.2 g/dL 3.5-5.7 [facility] Alkaline phosphatase [Enzyma tic activity/volume] in Serum or PlasmaOrdered By: Ayanna Vicente on 04-09-2023 ALP [Catalytic activity/Vol] 95 U/L 34-104 [facility] Anisocytosis LM Ql (Bld)Orde red By: Ayanna Vicente on 04-09-2023 Anisocytosis Ql (Bld) Slight Fir [facility] Aspartate aminotransferase [ Enzymatic activity/volume] in Serum or PlasmaOrdered By: Ayanna Vicente on 04-09-2023 AST [Catalytic activity/Vol] 21 U/L 13-39 [facility] Basophils Auto (Bld) [#/Vol] Ordered By: Ayanna Vicente on 04-09-2023 Basophils (Bld) [#/Vol] N/A F [facility] Basophils/100 WBC Auto (Bld) Ordered By: Ayanna Vicente on 04-09-2023 Basophils/100 WBC (Bld) N/A [facility] Bilirubin.total [Mass/volume ] in Serum or PlasmaOrdered By: Ayanna Vicente on 04-09-2023 Bilirubin [Mass/Vol] 0.4 mg/dL 0.3-1.0 [facility] Calcium [Mass/volume] in Ser um or PlasmaOrdered By: Ayanna Vicente on 04-09-2023 Calcium [Mass/Vol] 9.9 mg/dL 8.6-10.3 [facility] Carbon dioxide, total [Moles /volume] in Serum or PlasmaOrdered By: Ayanna Vicente on 04-09-2023 CO2 [Moles/Vol] 31.5 mmol/L 21.0-31.0 [facility] Chloride [Moles/volume] in S ebony or PlasmaOrdered By: Ayanna Vicente on 04-09-2023 Chloride [Moles/Vol] 103 mmol/L 98-107 [facility] Cholesterol [Mass/volume] in Serum or PlasmaOrdered By: Ayanna Vicente on 04-09-2023 Cholesterol [Mass/Vol] 139 mg/dL 140-200 [facility] Comment on above: Chol less than 200 m g/dl low riskChol 201-239 mg/dl borderline riskChol 240 mg/dl and greater high risk Cholesterol in LDL Calc [Mas s/Vol]Ordered By: Ayanna Vicente on 04-09-2023 Cholesterol in LDL [Mass/Vol] 27 mg/dL 0-100 [facility] Comment on above: LDL ATP III CLASSIFI CATIONLDL less than 100 mg/dL OptimalLDL 100-129 mg/dL Near or above optimalLDL 130-159 mg/dL Borderline highLDL 160-189 mg/dL HighLDL greater than 189 mg/dL Very high Cholesterol in VLDL Calc [Ma ss/Vol]Ordered By: Ayanna Vicente on 04-09-2023 Cholesterol in VLDL [Mass/Vol] 69 mg/dL [facility] Comprehensive Metabolic Pane cynthia 04-09-2023 Albumin [Mass/Vol] 4.2 g/dL Normal 3.5-5.7 [facility] Comment on above: Order Comment: Reaso n for Exam Diabetes type 2, uncontrolled Performed By: #### U RMA #### [facility] [address] Albumin/Globulin [Mass ratio] 1.8 {ratio} Normal [facility] Comment on above: Order Comment: Reaso n for Exam Diabetes type 2, uncontrolled Performed By: #### U RMA #### [facility] [address] [place] [address] ALP [Catalytic activity/Vol] 95 U/L Normal 34-104 [facility] Comment on above: Order Comment: Reaso n for Exam Diabetes type 2, uncontrolled Performed By: #### U RMA #### [facility] [address] [place] [address] ALT [Catalytic activity/Vol] 25 U/L Normal 7-52 [facility] Comment on above: Order Comment: Reaso n for Exam Diabetes type 2, uncontrolled Performed By: #### U RMA #### [facility] [address] [place] [address] Anion gap [Moles/Vol] 10.5 mmol/L Normal 6.0-15.0 [facility] Comment on above: Order Comment: Reaso n for Exam Diabetes type 2, uncontrolled Performed By: #### U RMA #### [facility] [address] [place] [address] AST [Catalytic activity/Vol] 21 U/L Normal 13-39 [facility] Comment on above: Order Comment: Reaso n for Exam Diabetes type 2, uncontrolled Performed By: #### U RMA #### [facility] [address] [place] [address] Bilirubin [Mass/Vol] 0.4 mg/dL Normal 0.3-1.0 [facility] Comment on above: Order Comment: Reaso n for Exam Diabetes type 2, uncontrolled Performed By: #### U RMA #### [facility] [address] [place] [address] [place] Calcium [Mass/Vol] 9.9 mg/dL Normal 8.6-10.3 [facility] Comment on above: Order Comment: Reaso n for Exam Diabetes type 2, uncontrolled Performed By: #### U RMA #### [facility] [address] [place] [address] [place] Chloride [Moles/Vol] 103 mmol/L Normal 98-107 [facility] Comment on above: Order Comment: Reaso n for Exam Diabetes type 2, uncontrolled Performed By: #### U RMA #### [facility] [address] [place] [address] [place] CO2 [Moles/Vol] 31.5 mmol/L High 21.0-31.0 [facility] Comment on above: Order Comment: Reaso n for Exam Diabetes type 2, uncontrolled Performed By: #### U RMA #### [address] Creatinine [Mass/Vol] 1.06 mg/dL Normal 0.60-1.20 [facility] Comment on above: Order Comment: Reaso n for Exam Diabetes type 2, uncontrolled Performed By: #### U RMA #### [place] [address] [place] GFR/1.73 sq M.predicted MDRD (S/P/Bld) [Vol rate/Area] 53.106 mL/min/{1.73_m2} [facility] Comment on above: Order Comment: Reaso n for Exam Diabetes type 2, uncontrolled Performed By: #### U RMA #### [address] Globulin (S) [Mass/Vol] 2.4 g/dL Normal [facility] Comment on above: Order Comment: Reaso n for Exam Diabetes type 2, uncontrolled Performed By: #### U RMA #### [address] Glucose [Mass/Vol] 154 mg/dL High 70-100 [facility] Comment on above: Order Comment: Reaso n for Exam Diabetes type 2, uncontrolled Result Comment: [place] Glucose Reference Range is dependent on time and content of last meal. Glucose of more than 200 mg/dL in a nonstressed, ambulatory subject supports the diagnosis of Diabetes Mellitus. ADA recommended reference range Performed By: #### U RMA #### [place] [address] [place] Potassium [Moles/Vol] 5.0 mmol/L Normal 3.5-5.1 [facility] Comment on above: Order Comment: Reaso n for Exam Diabetes type 2, uncontrolled Performed By: #### U RMA #### [facility] [address] Protein [Mass/Vol] 6.6 g/dL Normal 6.4-8.9 [facility] Comment on above: Order Comment: Reaso n for Exam Diabetes type 2, uncontrolled Performed By: #### U RMA #### [facility] [address] [place] [address] Sodium [Moles/Vol] 140 mmol/L Normal 136-145 [facility] Comment on above: Order Comment: Reaso n for Exam Diabetes type 2, uncontrolled Performed By: #### U RMA #### [facility] [address] [place] [address] Urea nitrogen [Mass/Vol] 28 mg/dL High 7- [facility] Comment on above: Order Comment: Reaso n for Exam Diabetes type 2, uncontrolled Performed By: #### U RMA #### [facility] [address] [place] [address] Creatinine [Mass/volume] in Serum or PlasmaOrdered By: Ayanna Vicente on 04-09-2023 Creatinine [Mass/Vol] 1.06 mg/dL 0.60-1.20 [facility] Diff and CBCon 04-09-2023 Anisocytosis Ql (Bld) Slight Normal [facility] Comment on above: Order Comment: Reaso n for Exam Diabetes type 2, uncontrolled Performed By: #### U RMA #### [facility] [address] [place] [address] [place] Eosinophils/100 WBC (Bld) 5 % High 1-3 [facility] Comment on above: Order Comment: Reaso n for Exam Diabetes type 2, uncontrolled Performed By: #### U RMA #### [facility] [address] [place] [address] [place] Erythrocyte distribution width (RBC) [Ratio] 15.1 % Normal 11.9-15.3 [facility] Comment on above: Order Comment: Reaso n for Exam Diabetes type 2, uncontrolled Performed By: #### U RMA #### [facility] [address] [place] [address] [place] Hematocrit (Bld) [Volume fraction] 37.2 % Normal 34.0-46.4 [facility] Comment on above: Order Comment: Reaso n for Exam Diabetes type 2, uncontrolled Performed By: #### U RMA #### [facility] [address] [place] [address] Hemoglobin (Bld) [Mass/Vol] 12.2 g/dL Normal 11.8-15.4 [facility] Comment on above: Order Comment: Reaso n for Exam Diabetes type 2, uncontrolled Performed By: #### U RMA #### [facility] [address] [place] [address] Lymphocytes/100 WBC (Bld) 59 % High 18-42 [facility] Comment on above: Order Comment: Reaso n for Exam Diabetes type 2, uncontrolled Performed By: #### U RMA #### [address] MCH (RBC) [Entitic mass] 29.1 pg Normal 24.7-34.3 [facility] Comment on above: Order Comment: Reaso n for Exam Diabetes type 2, uncontrolled Performed By: #### U RMA #### [facility] [address] [place] [address] [place] MCV (RBC) [Entitic vol] 88.5 fL Normal 80-100 [facility] Comment on above: Order Comment: Reaso n for Exam Diabetes type 2, uncontrolled Performed By: #### U RMA #### [facility] [address] [place] [address] [place] Mean Corpuscular HGB Conc 32.9 g/dL Normal 32.0-35.0 [facility] Comment on above: Order Comment: Reaso n for Exam Diabetes type 2, uncontrolled Performed By: #### U RMA #### [facility] [address] [place] [address] [place] Monocytes/100 WBC (Bld) 7 % Normal 2-11 [facility] Comment on above: Order Comment: Reaso n for Exam Diabetes type 2, uncontrolled Performed By: #### U RMA #### [facility] [address] [place] [address] [place] Myelocytes 1 % High 0-0 [facility] Comment on above: Order Comment: Reaso n for Exam Diabetes type 2, uncontrolled Performed By: #### U RMA #### [address] Ovalocytes Slight Normal [facility] Comment on above: Order Comment: Reaso n for Exam Diabetes type 2, uncontrolled Performed By: #### U RMA #### [facility] [address] [place] [address] Platelet Estimate Normal Normal Normal [facility] Comment on above: Order Comment: Reaso n for Exam Diabetes type 2, uncontrolled Performed By: #### U RMA #### [address] Platelet mean volume (Bld) [Entitic vol] 9.5 fL Normal 6.3-10.7 [facility] Comment on above: Order Comment: Reaso n for Exam Diabetes type 2, uncontrolled Performed By: #### U RMA #### [address] Platelet Morphology Normal Normal Normal [facility] Comment on above: Order Comment: Reaso n for Exam Diabetes type 2, uncontrolled Result Comment: PERF ORMED BY: [place] [address] PATHOLOGIST PATHOLOGY TECH MATHIEU RASCON M.D. Performed By: #### U RMA #### [place] [address] [place] Platelets (Bld) [#/Vol] 211 10*3/uL Normal 150-450 [facility] Comment on above: Order Comment: Reaso n for Exam Diabetes type 2, uncontrolled Performed By: #### U RMA #### [place] [address] [place] RBC (Bld) [#/Vol] 4.20 10*6/uL Normal 3.60-5.00 [facility] Comment on above: Order Comment: Reaso n for Exam Diabetes type 2, uncontrolled Performed By: #### U RMA #### [address] [place] [address] [place] Reactive Lymphocytes 1 % Normal 0-12 [facility] Comment on above: Order Comment: Reaso n for Exam Diabetes type 2, uncontrolled Performed By: #### U RMA #### [facility] [address] Segmented neutrophils/100 WBC (Bld) 27 % Low 50-70 [facility] Comment on above: Order Comment: Reaso n for Exam Diabetes type 2, uncontrolled Performed By: #### U RMA #### [address] WBC (Bld) [#/Vol] 15.3 10*3/uL High 3.8-11.6 [facility] Comment on above: Order Comment: Reaso n for Exam Diabetes type 2, uncontrolled Performed By: #### U RMA #### [place] [address] [place] Eosinophils Auto (Bld) [#/Vo l]Ordered By: Ayanna Vicente on 04-09-2023 Eosinophils (Bld) [#/Vol] N/A [facility] Eosinophils/100 WBC Auto (Bl d)Ordered By: Ayanna Vicente on 04-09-2023 Eosinophils/100 WBC (Bld) N/A [facility] Eosinophils/100 WBC Manual c nt (Bld)Ordered By: Ayanna Vicente on 04-09-2023 Eosinophils/100 WBC (Bld) 5 % 1-3 [facility] Erythrocyte distribution wid th Auto (RBC) [Ratio]Ordered By: Ayanna Vicente on 04-09-2023 Erythrocyte distribution width (RBC) [Ratio] 15.1 % 11.9-15.3 [facility] Free T4 (Free Thyroxine)on 0 04-09-2023 Free T4 [Mass/Vol] 0.78 ng/dL Normal 0.61-1.12 [facility] Comment on above: Order Comment: Reaso n for Exam Other abnormal blood chemistry Reason for Exam Hyperlipidemia PT IS FASTING Reason for Exam Hypothyroidism Performed By: #### L IPID, CMP, T4F, TSH3 #### [facility] [address] [place] [address] [place] Globulin Calc (S) [Mass/Vol] Ordered By: Ayanna Vicente on 04-09-2023 Globulin (S) [Mass/Vol] 2.4 g/dL [facility] Glucose [Mass/volume] in Ser um or PlasmaOrdered By: Ayanna Vicente on 04-09-2023 Glucose [Mass/Vol] 154 mg/dL 70-100 [facility] Comment on above: ADA recommended refe rence rangeRandom Glucose Reference Range is dependent on time and content of last meal. Glucose of more than 200 mg/dL in a nonstressed, ambulatory subject supports the diagnosis of Diabetes Mellitus. Glucose mean value [Mass/vol ume] in Blood Estimated from glycated hemoglobinOrdered By: Ayanna Vicente on 04-09-2023 Average glucose Estimated from glycated hemoglobin (Bld) [Mass/Vol] 200 mg/dL [facility] Hematocrit Auto (Bld) [Volum e fraction]Ordered By: Ayanna Vicente on 04-09-2023 Hematocrit (Bld) [Volume fraction] 37.2 % 34.0-46.4 [facility] Hemoglobin A1c percentageOrd ered By: Ayanna Vicente on 04-09-2023 HbA1c (Bld) [Mass fraction] 8.6 % 4.3-5.6 [facility] Comment on above: Increased risk for d iabetes: 5.7 - 6.4diabetes: >6.4glycemic control for adults with diabetes: <7.0 Hemoglobin [Mass/volume] in BloodOrdered By: Ayanna Vicente on 04-09-2023 Hemoglobin (Bld) [Mass/Vol] 12.2 g/dL 11.8-15.4 [facility] Leukocytes [#/volume] correc andreina for nucleated erythrocytes in Blood by Automated counOrdered By: Ayanna Vicente on 04-09-2023 WBC corrected for nucl RBC Auto (Bld) [#/Vol] 15.3 10*3/uL 3.8-11.6 [facility] Lipid Panelon 04-09-2023 Cholesterol [Mass/Vol] 139 mg/dL Low 140-200 [facility] Comment on above: Order Comment: Reaso n for Exam Diabetes type 2, uncontrolled Result Comment: Chol less than 200 mg/dl low risk Chol 201-239 mg/dl borderline risk Chol 240 mg/dl and greater high risk Performed By: #### U RMA #### [facility] [address] [place] [address] [place] Cholesterol in HDL [Mass/Vol] 42 mg/dL Normal 23-92 [facility] Comment on above: Order Comment: Reaso n for Exam Diabetes type 2, uncontrolled Result Comment: HDL CHOL ATP-III CLASSIFICATION Cardiovascular Risk HDL > or equal to 60 mg/dL LOW HDL < 40 mg/dL HIGH Performed By: #### U RMA #### [facility] [address] [place] [address] [place] Cholesterol.total/Choles terol in HDL [Mass ratio] 3.3 {ratio} Normal <5.0 [facility] Comment on above: Order Comment: Reaso n for Exam Diabetes type 2, uncontrolled Performed By: #### U RMA #### [facility] [address] LDL Cholesterol,Calculated 27 mg/dL Normal 0-100 [facility] Comment on above: Order Comment: Reaso n for Exam Diabetes type 2, uncontrolled Result Comment: LDL ATP III CLASSIFICATION LDL less than 100 mg/dL Optimal LDL 100-129 mg/dL Near or above optimal LDL 130-159 mg/dL Borderline high LDL 160-189 mg/dL High LDL greater than 189 mg/dL Very high Performed By: #### U RMA #### [facility] [address] [place] [id number] [place] Triglyceride w/Reflex 349 mg/dL High 0-149 [facility] Comment on above: Order Comment: Reaso n for Exam Diabetes type 2, uncontrolled Result Comment: TRIG ATP III CLASSIFICATION TRIG less than 150 mg/dL Normal TRIG 150-199 mg/dL Borderline high TRIG 200-500 mg/dL High TRIG greater than 500 mg/dL Very high Standard traceable to the Center for Disease Conrtrol and Prevention (CDC) test method. Performed By: #### U RMA #### [facility] [address] [place] [id number] [place] VLDL CHOLESTEROL 69 mg/dL Normal [facility] Comment on above: Order Comment: Reaso n for Exam Diabetes type 2, uncontrolled Performed By: #### U RMA #### [address] Lymphocytes Auto (Bld) [#/Vo l]Ordered By: Ayanna Vicente on 04-09-2023 Lymphocytes (Bld) [#/Vol] N/A [facility] Lymphocytes/100 WBC Auto (Bl d)Ordered By: Ayanna Vicente on 04-09-2023 Lymphocytes/100 WBC (Bld) N/A [facility] Lymphocytes/100 WBC Manual c nt (Bld)Ordered By: Ayanna Vicente on 04-09-2023 Lymphocytes/100 WBC (Bld) 59 % 18-42 [facility] MCH Auto (RBC) [Entitic mass ]Ordered By: Ayanna Vicente on 04-09-2023 MCH (RBC) [Entitic mass] 29.1 pg 24.7-34.3 [facility] MCHC Auto (RBC) [Mass/Vol]Or dered By: Ayanna Vicente on 04-09-2023 MCHC (RBC) [Mass/Vol] 32.9 g/dL 32.0-35.0 [facility] MCV Auto (RBC) [Entitic vol] Ordered By: Ayanna Vicente on 04-09-2023 MCV (RBC) [Entitic vol] 88.5 fL 80-100 [facility] Monocytes Auto (Bld) [#/Vol] Ordered By: Ayanna Vicente on 04-09-2023 Monocytes (Bld) [#/Vol] N/A [facility] Monocytes/100 WBC Auto (Bld) Ordered By: Ayanna Vicente on 04-09-2023 Monocytes/100 WBC (Bld) N/A [facility] Monocytes/100 WBC Manual cnt (Bld)Ordered By: Ayanna Vicente on 04-09-2023 Monocytes/100 WBC (Bld) 7 % 2-11 [facility] Myelocytes/100 WBC Manual cn t (Bld)Ordered By: Ayanna Vicente on 04-09-2023 Myelocytes/100 WBC (Bld) 1 % 0-0 [facility] Neutrophils Auto (Bld) [#/Vo l]Ordered By: Ayanna Vicente on 04-09-2023 Neutrophils (Bld) [#/Vol] N/A [facility] Neutrophils/100 WBC Auto (Bl d)Ordered By: Ayanna Vicente on 04-09-2023 Neutrophils/100 WBC (Bld) N/A [facility] No Panel InformationOrdered By: Ayanna Vicente on 04-09-2023 Estimated GFR (CKD-EPI) 53.106 mL/Min [facility] Creatinine Clearance (Chem N/A [facility] Nucleated erythrocytes [Pres ence] in Blood by Automated countOrdered By: yAanna Vicente on 04-09-2023 Nucleated RBC Auto Ql (Bld) N/A [facility] Ovalocyte detectionOrdered B y: Ayanna Vicente on 04-09-2023 Ovalocytes LM Ql (Bld) Slight [facility] Platelet adequacy [Presence] in Blood by Light microscopyOrdered By: Ayanna Vicente on 04-09-2023 Platelets LM Ql (Bld) Normal Normal [facility] Platelet mean volume Auto (B ld) [Entitic vol]Ordered By: Ayanna Vicente on 04-09-2023 Platelet mean volume (Bld) [Entitic vol] 9.5 fL 6.3-10.7 [facility] Platelet morphology finding [Identifier] in BloodOrdered By: Ayanna Vicente on 04-09-2023 Platelet morphology finding Nom (Bld) Normal Normal [facility] Platelets Auto (Bld) [#/Vol] Ordered By: Ayanna Vicente on 04-09-2023 Platelets (Bld) [#/Vol] 211 10*3/uL 150-450 [facility] Potassium [Moles/volume] in Serum or PlasmaOrdered By: Ayanna Vicente on 04-09-2023 Potassium [Moles/Vol] 5.0 mmol/L 3.5-5.1 [facility] Protein [Mass/volume] in Ser um or PlasmaOrdered By: Ayanna Vicente on 04-09-2023 Protein [Mass/Vol] 6.6 g/dL 6.4-8.9 [facility] RBC Auto (Bld) [#/Vol]Ordere d By: Ayanna Vicente on 04-09-2023 RBC (Bld) [#/Vol] 4.20 10*6/uL 3.60-5.00 [facility] RBC morphologyOrdered By: Vasile angelaleonila Vicente on 04-09-2023 RBC morphology finding Nom (Bld) N/A [facility] Segmented neutrophils/100 WB C Manual cnt (Bld)Ordered By: Ayanna Vicente on 04-09-2023 Segmented neutrophils/100 WBC (Bld) 27 % 50-70 [facility] Serum or plasma albumin/glob ulin mass ratioOrdered By: Ayanna Vicente on 04-09-2023 Albumin/Globulin [Mass ratio] 1.8 {ratio} [facility] Serum or plasma anion gap de terminationOrdered By: Ayanna Vicente on 04-09-2023 Anion gap [Moles/Vol] 10.5 mmol/L 6.0-15.0 [facility] Serum or plasma high density lipoprotein (HDL) cholesterol measurementOrdered By: Ayanna Vicente on 04-09-2023 Cholesterol in HDL [Mass/Vol] 42 mg/dL 23-92 [facility] Comment on above: HDL CHOL ATP-III CLA SSIFICATION Cardiovascular RiskHDL > or equal to 60 mg/dL LOWHDL < 40 mg/dL HIGH Serum or plasma total choles terol/high density lipoprotein (HDL) cholesterol mass ratOrdered By: Ayanna Vicente on 04-09-2023 Cholesterol.total/Choles terol in HDL [Mass ratio] 3.3 {ratio} <5.0 [facility] Sodium [Moles/volume] in Ser um or PlasmaOrdered By: Ayanna Vicente on 04-09-2023 Sodium [Moles/Vol] 140 mmol/L 136-145 [facility] Thyroid Stimulating Hormoneo n 04-09-2023 TSH Qn 1.62 m[IU]/L Normal 0.45-5.33 [facility] Comment on above: Order Comment: Reaso n for Exam Other abnormal blood chemistry Reason for Exam Hyperlipidemia PT IS FASTING Reason for Exam Hypothyroidism Result Comment: PERF ORMED BY: [address] [address] PATHOLOGIST PATHOLOGY TECH MATHIEU RASCON M.D. Performed By: #### L IPID, CMP, T4F, TSH3 #### [address] [place] [address] [facility] [[email or web address]] Thyrotropin [Units/volume] i n Serum or PlasmaOrdered By: Ayanna Vicente on 04-09-2023 TSH Qn 1.62 m[IU]/L 0.45-5.33 [facility] Thyroxine (T4) free [Mass/vo lume] in Serum or PlasmaOrdered By: Ayanna Vicente on 04-09-2023 Free T4 [Mass/Vol] 0.78 ng/dL 0.61-1.12 [facility] Triglyceride [Mass/volume] i n Serum or PlasmaOrdered By: Ayanna Vicente on 04-09-2023 Triglyceride [Mass/Vol] 349 mg/dL 0-149 [facility] Comment on above: TRIG ATP III CLASSIF ICATIONTRIG less than 150 mg/dL NormalTRIG 150-199 mg/dL Borderline highTRIG 200-500 mg/dL High TRIG greater than 500 mg/dL Very highStandard traceable to the Center for Disease Conrtrol and Prevention (CDC) test method. Triiodothyronine (T3) Freeon 04-09-2023 Triiodothyronine (T3) Free 2.71 pg/mL Normal 2.50-3.90 [facility] Comment on above: Order Comment: Reaso n for Exam Hypothyroidism Result Comment: PERF ORMED BY: [place] [address] PATHOLOGIST PATHOLOGY TECH MATHIEU RASCON M.D. Performed By: #### T 3F #### [facility] [address] [place] [address] Triiodothyronine (T3) Free [ Mass/volume] in Serum or PlasmaOrdered By: Ayanna Vicente on 04-09-2023 Free T3 [Mass/Vol] 2.71 pg/mL 2.50-3.90 [facility] Urea nitrogen [Mass/volume] in Serum or PlasmaOrdered By: Ayanna Vicente on 04-09-2023 Urea nitrogen [Mass/Vol] 28 mg/dL 7- [facility] Variant lymphocytes/100 WBC Manual cnt (Bld)Ordered By: Ayanna Vicente on 04-09-2023 Variant lymphocytes/100 WBC (Bld) 1 % 0-12 [facility] WBC Auto (Bld) [#/Vol]Ordere d By: Ayanna Vicente on 04-09-2023 WBC (Bld) [#/Vol] 15.3 10*3/uL 3.8-11.6 [facility] Lab Reportson 02-17-2023 Lab Reports [id number] 0CD:127 Normal [facility] Screenson 02-12-2023 Screens [id number] 0CD:127 Normal [facility] Ambulatory Visit Summaryon 0 02-11-2023 Ambulatory Visit Summary KATHY WASHBURN :1940 Visit Date:02/11/2023 Ambulatory Visit Instructions Your Diagnosis Overactive bladder Mixed incontinence Recurrent UTI Bladder instability Tests Performed Urnls Dip Stick Auto w/o Microscopy POC 25136 Your Care Team Attending Physician - SUSAN [...] ROSA BATISTA When: Where: [address] [place] [address] Medications What How Much When Why Instructions Changed ciprofloxacin (Cipro 500 mg Tab) See instructions 1 tab po BID x 5d PRN UTI symptoms Pickup at [facility] Changed oxybutynin (oxybutynin 5 mg Tab) See instructions Bladder instability can take 1 tab po up to TID PRN incontinence Pickup at [facility] Unchanged acetaminophen-oxycodon e (acetaminophen-oxycodo ne [...] physician if questions or concerns Pharmacy Information [facility]: [address], [place] [phone] Test Results Urnls Dip Stick Auto (more content not included)... Normal [facility] Patient Educationon 02-12-20 Patient Education Obstetrics [...] health care provider. General instructions ? Take bugc-lfr-wkgczka and prescription medicines only as told by [...] monitor yo (more content not included)... Normal [facility] Urology Office/Clinic Noteon 02-11-2023 Urology Office/Clinic [...] w better temporary control for things like mosque and parties. new script sent -call if [...] Contact Information JAX BECKMAN, SUSAN Miller, URL [address] [place] [place] [address] Additional Instructions: 1 yr Patient Education Overactive [...] 325 mg-5 (more content not included)... Normal [facility] Comment on above: Result Comment: Elec tronically Signed By: SUSAN RANDOLPH PA-C\.br\Date and Time Signed: 02/11/23 12:09 EDT\.br\Electronically Co-Signed By: Kerline Leone.br\Date and Time Co-Signed: 02/11/23 12:04 EDT CBC W Auto Differential pane l (Bld)on 02-07-2023 Basophils (Bld) [#/Vol] 0.00 10*3/uL Normal <0.11 [facility] Comment on above: Order Comment: Speci men Type: BLOOD SPECIMEN Ordering Facility: [facility] Address: [address] [place] [address] Performed By: #### 5 7021-8 #### [facility] CLIA [id number] [address] [place] [address] LAB CLIA [id number] [address] [place] [address] [place] Basophils/100 WBC (Bld) 0.0 % Normal C [facility] Comment on above: Order Comment: Speci men Type: BLOOD SPECIMEN Ordering Facility: [facility] Address: [address] [place] [address] Performed By: #### 5 7021-8 #### [facility] CLIA [id number] [address] [place] [address] LAB CLIA [id number] [address] [place] [address] [place] Differential cell count method Nom (Bld) Manual Normal [facility] Comment on above: Order Comment: Speci men Type: BLOOD SPECIMEN Ordering Facility: [facility] Address: [address] [place] [address] Performed By: #### 5 7021-8 #### [facility] CLIA [id number] [address] [place] [address] LAB CLIA [id number] [address] [place] [address] [place] Eosinophils (Bld) [#/Vol] 0.19 10*3/uL Normal <0.46 [facility] Comment on above: Order Comment: Speci men Type: BLOOD SPECIMEN Ordering Facility: [facility] Address: [address] [place] [address] Performed By: #### 5 7021-8 #### [facility] CLIA [id number] [address] [place] [address] LAB CLIA [id number] [address] [place] [address] [place] Eosinophils/100 WBC (Bld) 1.0 % Normal [facility] Comment on above: Order Comment: Speci men Type: BLOOD SPECIMEN Ordering Facility: [facility] Address: [address] [place] [address] Performed By: #### 5 7021-8 #### [facility] CLIA [id number] [address] [place] [address] LAB CLIA [id number] [address] [place] [address] [place] Erythrocyte distribution width (RBC) [Ratio] 13.5 % Normal 11.5-15.0 [facility] Comment on above: Order Comment: Speci men Type: BLOOD SPECIMEN Ordering Facility: [facility] Address: [address] [place], [place] [address] Performed By: #### 5 7021-8 #### [facility] CLIA [id number] [address] [place] [address] LAB CLIA [id number] [address] [place] [address] [place] Hematocrit (Bld) [Volume fraction] 37.0 % Normal 36.0-46.0 [facility] Comment on above: Order Comment: Speci men Type: BLOOD SPECIMEN Ordering Facility: [facility] Address: [address] [place], [place] [address] Performed By: #### 5 7021-8 #### [facility] CLIA [id number] [address] [place] [address] LAB CLIA [id number] [address] [place] [address] [place] Hemoglobin (Bld) [Mass/Vol] 12.1 g/dL Normal 11.5-15.5 [facility] Comment on above: Order Comment: Speci men Type: BLOOD SPECIMEN Ordering Facility: [facility] Address: [address] Performed By: #### 5 7021-8 #### [facility] CLIA [id number] [address] [place] [address] LAB CLIA [id number] [address] [place] [address] [place] Lymphocytes (Bld) [#/Vol] 12.31 10*3/uL High 1.00-4.00 [facility] Comment on above: Order Comment: Speci men Type: BLOOD SPECIMEN Ordering Facility: [facility] Address: [address] Performed By: #### 5 7021-8 #### [facility] CLIA [id number] [address] [place] [address] LAB CLIA [id number] [address] [place] [address] [place] Lymphocytes/100 WBC (Bld) 66.0 % Normal [facility] Comment on above: Order Comment: Speci men Type: BLOOD SPECIMEN Ordering Facility: [facility] Address: [address] [place] [address] Performed By: #### 5 7021-8 #### [facility] CLIA [id number] [address] [place] [address] LAB CLIA [id number] [address] [place] [address] [place] MCH (RBC) [Entitic mass] 29.4 pg Normal 26.0-34.0 [facility] Comment on above: Order Comment: Speci men Type: BLOOD SPECIMEN Ordering Facility: [facility] Address: [address] [place] [address] Performed By: #### 5 7021-8 #### [facility] CLIA [id number] [address] [place] [address] LAB CLIA [id number] [address] [place] [address] [place] MCHC (RBC) [Mass/Vol] 32.7 g/dL Normal 30.5-36.0 [facility] Comment on above: Order Comment: Speci men Type: BLOOD SPECIMEN Ordering Facility: [facility] Address: [address] [place] [address] Performed By: #### 5 7021-8 #### [facility] CLIA [id number] [address] [place] [address] LAB CLIA [id number] [address] [place] [address] [place] MCV (RBC) [Entitic vol] 90.0 fL Normal 80.0-100.0 C [facility] Comment on above: Order Comment: Speci men Type: BLOOD SPECIMEN Ordering Facility: [facility] Address: [address] [place] [address] Performed By: #### 5 7021-8 #### [facility] CLIA [id number] [address] [place] [address] LAB CLIA [id number] [address] [place] [address] [place] Monocytes (Bld) [#/Vol] 0.56 10*3/uL Normal <0.87 [facility] Comment on above: Order Comment: Speci men Type: BLOOD SPECIMEN Ordering Facility: [facility] Address: [address] [place], [place] [address] Performed By: #### 5 7021-8 #### [facility] CLIA [id number] [address] [place] [address] LAB CLIA [id number] [address] [place] [address] [place] Monocytes/100 WBC (Bld) 3.0 % Normal [facility] Comment on above: Order Comment: Speci men Type: BLOOD SPECIMEN Ordering Facility: [facility] Address: [address] Performed By: #### 5 7021-8 #### [facility] CLIA [id number] [address] [place] [address] LAB CLIA [id number] [address] [place] [address] [place] Neutrophils (Bld) [#/Vol] 5.60 10*3/uL Normal 1.45-7.50 [facility] Comment on above: Order Comment: Speci men Type: BLOOD SPECIMEN Ordering Facility: [facility] Address: [address] Performed By: #### 5 7021-8 #### [facility] CLIA [id number] [address] [place] [address] LAB CLIA [id number] [address] [place] [address] [place] Neutrophils/100 WBC (Bld) 30.0 % Normal [facility] Comment on above: Order Comment: Speci men Type: BLOOD SPECIMEN Ordering Facility: [facility] Address: [address] [place] [address] Performed By: #### 5 7021-8 #### [facility] CLIA [id number] [address] [place] [address] LAB CLIA [id number] [address] [place] [address] [place] Nucleated RBC (Bld) [#/Vol] 10*3/uL Normal <0.01 [facility] Comment on above: Order Comment: Speci men Type: BLOOD SPECIMEN Ordering Facility: [facility] Address: [address] [place] [address] Performed By: #### 5 7021-8 #### [facility] CLIA [id number] [address] [place] [address] LAB CLIA [id number] [address] [place] [address] [place] Nucleated RBC/100 WBC (Bld) [Ratio] 0.0 /100 WBC Normal [facility] Comment on above: Order Comment: Speci men Type: BLOOD SPECIMEN Ordering Facility: [facility] Address: [address] [place] [address] Performed By: #### 5 7021-8 #### [facility] CLIA [id number] [address] [place] [address] LAB CLIA [id number] [address] [place] [address] [place] Ovalocytes LM Ql (Bld) Few Normal Cl [facility] Comment on above: Order Comment: Speci men Type: BLOOD SPECIMEN Ordering Facility: [facility] Address: [address] [place] [address] Performed By: #### 5 7021-8 #### [facility] CLIA [id number] [address] [place] [address] LAB CLIA [id number] [address] [place] [address] [place] Platelet mean volume (Bld) [Entitic vol] 10.3 fL Normal 9.0-12.7 [facility] Comment on above: Order Comment: Speci men Type: BLOOD SPECIMEN Ordering Facility: [facility] Address: [address] [place] [address] Performed By: #### 5 7021-8 #### [facility] CLIA [id number] [address] [place] [address] LAB CLIA [id number] [address] [place] [address] [place] Platelets (Bld) [#/Vol] 240 10*3/uL Normal 150-400 [facility] Comment on above: Order Comment: Speci men Type: BLOOD SPECIMEN Ordering Facility: [facility] Address: [address] [place] [address] Performed By: #### 5 7021-8 #### [facility] CLIA [id number] [address] [place] [address] LAB CLIA [id number] [address] [place] [address] [place] Platelets Estimate (Bld) [#/Vol] Adequate Normal [facility] Comment on above: Order Comment: Speci men Type: BLOOD SPECIMEN Ordering Facility: [facility] Address: [address] [place], [place] [address] Performed By: #### 5 7021-8 #### [facility] CLIA [id number] [address] [place] [address] LAB CLIA [id number] [address] [place] [address] [place] RBC (Bld) [#/Vol] 4.11 10*6/uL Normal 3.90-5.20 [facility] Comment on above: Order Comment: Speci men Type: BLOOD SPECIMEN Ordering Facility: [facility] Address: [address] [place] [address] Performed By: #### 5 7021-8 #### [facility] CLIA [id number] [address] [place] [address] LAB CLIA [id number] [address] [place] [address] [place] RED CELL MORPH Reviewed: see result s of individual morphologies Normal [facility] Comment on above: Order Comment: Speci men Type: BLOOD SPECIMEN Ordering Facility: [facility] Address: [place] [id number] Performed By: #### 5 7021-8 #### [facility] CLIA [id number] [address] [place], [place] [address] [facility] CLIA [id number] [address] [place] [address] [place] WBC (Bld) [#/Vol] 18.65 10*3/uL High 3.70-11.00 [facility] Comment on above: Order Comment: Speci men Type: BLOOD SPECIMEN Ordering Facility: [facility] Address: [place] [address] Performed By: #### 5 7021-8 #### [facility] CLIA [id number] [address] [place] [address] LAB CLIA [id number] [address] [place] [address] [place] CNOVSPon 02-07-2023 CNOVSP Visit (SP) Office ([place]) KATHY WASHBURN ([id number]) 1940 F Date Time Provider Department 02/07/23 1:30 PM FRANCINE LARES During your visit today, we recorded the following information about you: Temperature Pulse Respiration Blood pressure 97.3 degrees 74/minute 20/minute 122/72 Weight Height 108 kg 1.778 m Francine Lares MD 02/07/2023 1:47 PM Signed PATIENT NAME: Kathy Briggs [facility] CLINIC NO.: [id number] ATTENDING PHYSICIAN: Francine Lares MD DATE OF [...] Status 02/07/2023 (more content not included)... Normal [facility] Comprehensive metabolic 2000 panelon 02-07-2023 Albumin [Mass/Vol] 4.4 g/dL Normal 3.9-4.9 [facility] Comment on above: Order Comment: Speci men Type: BLOOD SPECIMEN Ordering Facility: [facility] Address: [address] [place] [address] Performed By: #### 2 4323-8 #### [facility] CLIA [id number] [address] [place] [address] ALP [Catalytic activity/Vol] 119 U/L Normal 34-123 [facility] Comment on above: Order Comment: Speci men Type: BLOOD SPECIMEN Ordering Facility: [facility] Address: [address] [place] [address] Performed By: #### 2 4323-8 #### [facility] CLIA [id number] [address] [place] [address] ALT [Catalytic activity/Vol] 21 U/L Normal 7-38 [facility] Comment on above: Order Comment: Speci men Type: BLOOD SPECIMEN Ordering Facility: [facility] Address: [address] [place] [place] [address] Performed By: #### 2 4323-8 #### [facility] CLIA [id number] [address] [place] [address] Anion gap [Moles/Vol] 11 mmol/L Normal 9-18 [facility] Comment on above: Order Comment: Speci men Type: BLOOD SPECIMEN Ordering Facility: [facility] Address: [address] [place] [address] Performed By: #### 2 4323-8 #### [facility] CLIA [id number] [address] [place] [address] AST [Catalytic activity/Vol] 21 U/L Normal 13-35 [facility] Comment on above: Order Comment: Speci men Type: BLOOD SPECIMEN Ordering Facility: [facility] Address: [address] [place] [address] Performed By: #### 2 4323-8 #### [facility] CLIA [id number] [address] [place] [address] Bilirubin [Mass/Vol] 0.2 mg/dL Normal 0.2-1.3 [facility] Comment on above: Order Comment: Speci men Type: BLOOD SPECIMEN Ordering Facility: [facility] Address: [address] [place] [address] Performed By: #### 2 4323-8 #### [facility] CLIA [id number] [address] [place] [address] Calcium [Mass/Vol] 9.2 mg/dL Normal 8.5-10.2 [facility] Comment on above: Order Comment: Speci men Type: BLOOD SPECIMEN Ordering Facility: [facility] Address: [address] [place] [address] Performed By: #### 2 4323-8 #### [facility] CLIA [id number] [address] [place] [address] Chloride [Moles/Vol] 101 mmol/L Normal 97-105 [facility] Comment on above: Order Comment: Speci men Type: BLOOD SPECIMEN Ordering Facility: [facility] Address: [address] [place] [address] Performed By: #### 2 4323-8 #### [facility] CLIA [id number] [address] [place] [address] CO2 [Moles/Vol] 26 mmol/L Normal 22-30 [facility] Comment on above: Order Comment: Speci men Type: BLOOD SPECIMEN Ordering Facility: [facility] Address: [address] [place] [id number] Performed By: #### 2 4323-8 #### [facility] CLIA [id number] [address] [place] [address] Creatinine [Mass/Vol] 1.16 mg/dL High 0.58-0.96 [facility] Comment on above: Order Comment: Speci men Type: BLOOD SPECIMEN Ordering Facility: [facility] Address: [address] [place] [address] Performed By: #### 2 4323-8 #### [facility] CLIA [id number] [address] [place] [address] ESTIMATED GLOMERULAR FILTRATION RATE 48 mL/min/1.73m??? Low >=60 [facility] Comment on above: Order Comment: Speci men Type: BLOOD SPECIMEN Ordering Facility: [facility] Address: [address] [place] [address] Result Comment: Aimee mated Glomerular Filtration Rate [...] GFR. Performed By: #### 2 4323-8 #### [facility] CLIA [id number] [address] [place] [address]99 Glucose [Mass/Vol] 117 mg/dL High 74-99 [facility] Comment on above: Order Comment: Speci men Type: BLOOD SPECIMEN Ordering Facility: [facility] Address: [address] [place] [address] Result Comment: The [place] Diabetes Association (ADA) provides guidance for cutoff [...] Standards of Medical Care in Diabetes 2016, [place] Diabetes Association. Diabetes Care. 2016.39(Suppl 1). Performed By: #### 2 4323-8 #### [facility] CLIA [id number] [address] [place] [address] Potassium [Moles/Vol] 4.4 mmol/L Normal 3.7-5.1 [facility] Comment on above: Order Comment: Speci men Type: BLOOD SPECIMEN Ordering Facility: [facility] Address: [address] [place] [place] [address] Performed By: #### 2 4323-8 #### [facility] CLIA [id number] [address] [place] [address] Protein [Mass/Vol] 6.9 g/dL Normal 6.3-8.0 [facility] Comment on above: Order Comment: Speci men Type: BLOOD SPECIMEN Ordering Facility: [facility] Address: [address] [place] [address] Performed By: #### 2 4323-8 #### [facility] CLIA [id number] [address] [place] [address] Sodium [Moles/Vol] 138 mmol/L Normal 136-144 [facility] Comment on above: Order Comment: Speci men Type: BLOOD SPECIMEN Ordering Facility: [facility] Address: [address] [place] [place] [address] Performed By: #### 2 4323-8 #### [facility] CLIA [id number] [address] [place] [address] Urea nitrogen [Mass/Vol] 35 mg/dL High 7-21 [facility] Comment on above: Order Comment: Speci men Type: BLOOD SPECIMEN Ordering Facility: [facility] Address: [address] [place] [address] Performed By: #### 2 4323-8 #### [facility] CLIA [id number] [address] [place] [address] A1C with Estimated Average G kenny 09-30-2022 Glucose [Mass/Vol] 203 mg/dL Normal [facility] Comment on above: Order Comment: Reaso n for Exam Diabetes type 2, uncontrolled Result Comment: PERF ORMED BY: [facility] [address] [place] [address] PATHOLOGIST PATHOLOGY TECH MATHIEU RASCON M.D. Performed By: #### A 1C [facility] eA #### [facility] [address] [place] [address] HbA1c (Bld) [Mass fraction] 8.7 % High 4.3-5.6 [facility] Comment on above: Order Comment: Reaso n for Exam Diabetes type 2, uncontrolled Result Comment: Incr eased risk for diabetes: 5.7 - 6.4 diabetes: >6.4 glycemic control for adults with diabetes: <7.0 Performed By: #### A 1C [facility] eA #### [facility] [address] Alanine aminotransferase [En zymatic activity/volume] in Serum or PlasmaOrdered By: Ayanna Vicente on 09-30-2022 ALT [Catalytic activity/Vol] 25 U/L 7-52 [facility] Albumin [Mass/volume] in Ser um or Plasma by Bromocresol green (BCG) dye binding methoOrdered By: Ayanna Vicente on 09-30-2022 Albumin BCG dye [Mass/Vol] 4.3 g/dL 3.5-5.7 [facility] Alkaline phosphatase [Enzyma tic activity/volume] in Serum or PlasmaOrdered By: Ayanna Vicente on 09-30-2022 ALP [Catalytic activity/Vol] 97 U/L 34-104 [facility] Anisocytosis LM Ql (Bld)Orde red By: Ayanna Vicente on 09-30-2022 Anisocytosis Ql (Bld) Slight Fir [facility] Aspartate aminotransferase [ Enzymatic activity/volume] in Serum or PlasmaOrdered By: Ayanna Vicente on 09-30-2022 AST [Catalytic activity/Vol] 22 U/L 13-39 [facility] Basophils Auto (Bld) [#/Vol] Ordered By: Ayanna Vicente on 09-30-2022 Basophils (Bld) [#/Vol] 0.0 10*3/uL 0.0-0.2 [facility] Basophils/100 WBC Auto (Bld) Ordered By: Ayanna Vicente on 09-30-2022 Basophils/100 WBC (Bld) 0.3 % . F [facility] Bilirubin.total [Mass/volume ] in Serum or PlasmaOrdered By: Ayanna Vicente on 09-30-2022 Bilirubin [Mass/Vol] 0.3 mg/dL 0.3-1.0 [facility] Calcium [Mass/volume] in Ser um or PlasmaOrdered By: Ayanna Vicente on 09-30-2022 Calcium [Mass/Vol] 9.3 mg/dL 8.6-10.3 [facility] Carbon dioxide, total [Moles /volume] in Serum or PlasmaOrdered By: Ayanna Vicente on 09-30-2022 CO2 [Moles/Vol] 30.4 mmol/L 21.0-31.0 [facility] Chloride [Moles/volume] in S ebony or PlasmaOrdered By: Ayanna Vicente on 09-30-2022 Chloride [Moles/Vol] 104 mmol/L 98-107 [facility] Cholesterol [Mass/volume] in Serum or PlasmaOrdered By: Ayanna Vicente on 09-30-2022 Cholesterol [Mass/Vol] 117 mg/dL 140-200 [facility] Comment on above: Chol less than 200 m g/dl low riskChol 201-239 mg/dl borderline riskChol 240 mg/dl and greater high risk Cholesterol in LDL Calc [Mas s/Vol]Ordered By: Ayanna Vicente on 09-30-2022 Cholesterol in LDL [Mass/Vol] 35 mg/dL 0-100 [facility] Comment on above: LDL ATP III CLASSIFI CATIONLDL less than 100 mg/dL OptimalLDL 100-129 mg/dL Near or above optimalLDL 130-159 mg/dL Borderline highLDL 160-189 mg/dL HighLDL greater than 189 mg/dL Very high Cholesterol in VLDL Calc [Ma ss/Vol]Ordered By: Ayanna Vicente on 09-30-2022 Cholesterol in VLDL [Mass/Vol] 43 mg/dL [facility] Comprehensive Metabolic Pane cynthia 09-30-2022 Albumin [Mass/Vol] 4.3 g/dL Normal 3.5-5.7 [facility] Comment on above: Order Comment: Reaso n for Exam Other abnormal blood chemistry Reason for Exam Hyperlipidemia PT IS FASTING Reason for Exam Hypothyroidism Performed By: #### L IPID, CMP, T4F, TSH3 #### [facility] [address] Albumin/Globulin [Mass ratio] 1.8 {ratio} Normal [place] [facility] Comment on above: Order Comment: Reaso n for Exam Other abnormal blood chemistry Reason for Exam Hyperlipidemia PT IS FASTING Reason for Exam Hypothyroidism Performed By: #### L IPID, CMP, T4F, TSH3 #### [facility] [address] [id number] [facility] [[email or web address] ALP [Catalytic activity/Vol] 97 U/L Normal 34-104 [facility] Comment on above: Order Comment: Reaso n for Exam Other abnormal blood chemistry Reason for Exam Hyperlipidemia PT IS FASTING Reason for Exam Hypothyroidism Performed By: #### L IPID, CMP, T4F, TSH3 #### [facility] [address] [place] [address] [place] ALT [Catalytic activity/Vol] 25 U/L Normal 7-52 [facility] Comment on above: Order Comment: Reaso n for Exam Other abnormal blood chemistry Reason for Exam Hyperlipidemia PT IS FASTING Reason for Exam Hypothyroidism Performed By: #### L IPID, CMP, T4F, TSH3 #### [facility] [address] [id number] [place] Anion gap [Moles/Vol] 12.1 mmol/L Normal 6.0-15.0 [facility] Comment on above: Order Comment: Reaso n for Exam Other abnormal blood chemistry Reason for Exam Hyperlipidemia PT IS FASTING Reason for Exam Hypothyroidism Performed By: #### L IPID, CMP, T4F, TSH3 #### [facility] [address] [id number] [place] AST [Catalytic activity/Vol] 22 U/L Normal 13-39 [facility] Comment on above: Order Comment: Reaso n for Exam Other abnormal blood chemistry Reason for Exam Hyperlipidemia PT IS FASTING Reason for Exam Hypothyroidism Performed By: #### L IPID, CMP, T4F, TSH3 #### [facility] [address] Bilirubin [Mass/Vol] 0.3 mg/dL Normal 0.3-1.0 [facility] Comment on above: Order Comment: Reaso n for Exam Other abnormal blood chemistry Reason for Exam Hyperlipidemia PT IS FASTING Reason for Exam Hypothyroidism Performed By: #### L IPID, CMP, T4F, TSH3 #### [facility] [address] Calcium [Mass/Vol] 9.3 mg/dL Normal 8.6-10.3 [facility] Comment on above: Order Comment: Reaso n for Exam Other abnormal blood chemistry Reason for Exam Hyperlipidemia PT IS FASTING Reason for Exam Hypothyroidism Performed By: #### L IPID, CMP, T4F, TSH3 #### [facility] [address] [place] [address] [place] Chloride [Moles/Vol] 104 mmol/L Normal 98-107 [facility] Comment on above: Order Comment: Reaso n for Exam Other abnormal blood chemistry Reason for Exam Hyperlipidemia PT IS FASTING Reason for Exam Hypothyroidism Performed By: #### L IPID, CMP, T4F, TSH3 #### [facility] [address] [place] [address] [place] CO2 [Moles/Vol] 30.4 mmol/L Normal 21.0-31.0 [facility] Comment on above: Order Comment: Reaso n for Exam Other abnormal blood chemistry Reason for Exam Hyperlipidemia PT IS FASTING Reason for Exam Hypothyroidism Performed By: #### L IPID, CMP, T4F, TSH3 #### [facility] [address] [id number] [place] Creatinine [Mass/Vol] 1.25 mg/dL High 0.60-1.20 [facility] Comment on above: Order Comment: Reaso n for Exam Other abnormal blood chemistry Reason for Exam Hyperlipidemia PT IS FASTING Reason for Exam Hypothyroidism Performed By: #### L IPID, CMP, T4F, TSH3 #### [facility] [address] [place] [address] [place] GFR/1.73 sq M.predicted MDRD (S/P/Bld) [Vol rate/Area] 43.572 mL/min/{1.73_m2} Normal [facility] Comment on above: Order Comment: Reaso n for Exam Other abnormal blood chemistry Reason for Exam Hyperlipidemia PT IS FASTING Reason for Exam Hypothyroidism Performed By: #### L IPID, CMP, T4F, TSH3 #### [facility] [address] Globulin (S) [Mass/Vol] 2.4 g/dL Normal [facility] Comment on above: Order Comment: Reaso n for Exam Other abnormal blood chemistry Reason for Exam Hyperlipidemia PT IS FASTING Reason for Exam Hypothyroidism Performed By: #### L IPID, CMP, T4F, TSH3 #### [address] Glucose [Mass/Vol] 135 mg/dL High 74-109 [facility] Comment on above: Order Comment: Reaso n for Exam Other abnormal blood chemistry Reason for Exam Hyperlipidemia PT IS FASTING Reason for Exam Hypothyroidism Result Comment: [facility] Glucose Reference Range is dependent on time and content of last meal. Glucose of more than 200 mg/dL in a nonstressed, ambulatory subject supports the diagnosis of Diabetes Mellitus. ADA recommended reference range Performed By: #### L IPID, CMP, T4F, TSH3 #### [place] [address] [place] Potassium [Moles/Vol] 4.5 mmol/L Normal 3.5-5.1 [facility] Comment on above: Order Comment: Reaso n for Exam Other abnormal blood chemistry Reason for Exam Hyperlipidemia PT IS FASTING Reason for Exam Hypothyroidism Performed By: #### L IPID, CMP, T4F, TSH3 #### [facility] [address] Protein [Mass/Vol] 6.7 g/dL Normal 6.4-8.9 [facility] Comment on above: Order Comment: Reaso n for Exam Other abnormal blood chemistry Reason for Exam Hyperlipidemia PT IS FASTING Reason for Exam Hypothyroidism Performed By: #### L IPID, CMP, T4F, TSH3 #### [facility] [address] [place] [address] [place] Sodium [Moles/Vol] 142 mmol/L Normal 136-145 [facility] Comment on above: Order Comment: Reaso n for Exam Other abnormal blood chemistry Reason for Exam Hyperlipidemia PT IS FASTING Reason for Exam Hypothyroidism Performed By: #### L IPID, CMP, T4F, TSH3 #### [facility] [address] Urea nitrogen [Mass/Vol] 33 mg/dL High 7-25 [facility] Comment on above: Order Comment: Reaso n for Exam Other abnormal blood chemistry Reason for Exam Hyperlipidemia PT IS FASTING Reason for Exam Hypothyroidism Performed By: #### L IPID, CMP, T4F, TSH3 #### [facility] [address] Creatinine [Mass/volume] in Serum or PlasmaOrdered By: Ayanna Vicente on 09-30-2022 Creatinine [Mass/Vol] 1.25 mg/dL 0.60-1.20 [facility] Eosinophils Auto (Bld) [#/Vo l]Ordered By: Ayanna Vicente on 09-30-2022 Eosinophils (Bld) [#/Vol] 0.3 10*3/uL 0.0-0.45 [facility] Eosinophils/100 WBC Auto (Bl d)Ordered By: Ayanna Vicente on 09-30-2022 Eosinophils/100 WBC (Bld) 2.3 % . [facility] Erythrocyte distribution wid th Auto (RBC) [Ratio]Ordered By: Ayanna Vicente on 09-30-2022 Erythrocyte distribution width (RBC) [Ratio] 15.4 % 11.9-15.3 [facility] Free T4 (Free Thyroxine)on 0 09-30-2022 Free T4 [Mass/Vol] 0.86 ng/dL Normal 0.61-1.12 [facility] Comment on above: Order Comment: Reaso n for Exam Other abnormal blood chemistry Reason for Exam Hyperlipidemia PT IS FASTING Reason for Exam Hypothyroidism Performed By: #### L IPID, CMP, T4F, TSH3 #### [facility] [address] [phone] [facility] [[email or web address]] Globulin Calc (S) [Mass/Vol] Ordered By: Ayanna Vicente on 09-30-2022 Globulin (S) [Mass/Vol] 2.4 g/dL [facility] Glucose [Mass/volume] in Ser um or PlasmaOrdered By: Ayanna Vicente on 09-30-2022 Glucose [Mass/Vol] 135 mg/dL 74-109 [facility] Comment on above: ADA recommended refe rence rangeRandom Glucose Reference Range is dependent on time and content of last meal. Glucose of more than 200 mg/dL in a nonstressed, ambulatory subject supports the diagnosis of Diabetes Mellitus. Glucose mean value [Mass/vol ume] in Blood Estimated from glycated hemoglobinOrdered By: Ayanna Vicente on 09-30-2022 Average glucose Estimated from glycated hemoglobin (Bld) [Mass/Vol] 203 mg/dL [facility] Hematocrit Auto (Bld) [Volum e fraction]Ordered By: Ayanna Vicente on 09-30-2022 Hematocrit (Bld) [Volume fraction] 37.0 % 34.0-46.4 [facility] Hemoglobin A1c percentageOrd ered By: Ayanna Vicente on 09-30-2022 HbA1c (Bld) [Mass fraction] 8.7 % 4.3-5.6 [facility] Comment on above: Increased risk for d iabetes: 5.7 - 6.4diabetes: >6.4glycemic control for adults with diabetes: <7.0 Hemoglobin [Mass/volume] in BloodOrdered By: Ayanna Vicente on 09-30-2022 Hemoglobin (Bld) [Mass/Vol] 12.1 g/dL 11.8-15.4 [facility] Laboratory - Chemistry and C hemistry - challengeOrdered By: Ayanna Vicente on 09-30-2022 GFR/1.73 sq M.predicted MDRD (S/P/Bld) [Vol rate/Area] 43.572 mL/min/{1.73_m2} [facility] Leukocytes [#/volume] correc andreina for nucleated erythrocytes in Blood by Automated counOrdered By: Ayanna Vicente on 09-30-2022 WBC corrected for nucl RBC Auto (Bld) [#/Vol] 15.2 10*3/uL 3.8-11.6 [facility] Lipid Panelon 09-30-2022 Cholesterol [Mass/Vol] 117 mg/dL Low 140-200 [facility] Comment on above: Order Comment: Reaso n for Exam Other abnormal blood chemistry Reason for Exam Hyperlipidemia PT IS FASTING Reason for Exam Hypothyroidism Result Comment: Chol less than 200 mg/dl low risk Chol 201-239 mg/dl borderline risk Chol 240 mg/dl and greater high risk Performed By: #### L IPID, CMP, T4F, TSH3 #### [facility] [address] [place] [address] [place] Cholesterol in HDL [Mass/Vol] 39 mg/dL Normal 35-85 [facility] Comment on above: Order Comment: Reaso n for Exam Other abnormal blood chemistry Reason for Exam Hyperlipidemia PT IS FASTING Reason for Exam Hypothyroidism Result Comment: HDL CHOL ATP-III CLASSIFICATION Cardiovascular Risk HDL > or equal to 60 mg/dL LOW HDL < 40 mg/dL HIGH Performed By: #### L IPID, CMP, T4F, TSH3 #### [facility] [address] [id number] [place] Cholesterol.total/Choles terol in HDL [Mass ratio] 3.0 {ratio} Normal <5.0 [facility] Comment on above: Order Comment: Reaso n for Exam Other abnormal blood chemistry Reason for Exam Hyperlipidemia PT IS FASTING Reason for Exam Hypothyroidism Performed By: #### L IPID, CMP, T4F, TSH3 #### [facility] [address] [place] [address] [place] LDL Cholesterol,Calculated 35 mg/dL Normal 0-100 [facility] Comment on above: Order Comment: Reaso [...] #### L IPID, CMP, T4F, TSH3 #### [facility] [address] [id number] [place] Triglyceride w/Reflex 216 mg/dL High 0-149 [facility] Comment on above: Order Comment: Reaso [...] #### L IPID, CMP, T4F, TSH3 #### [facility] [address] VLDL CHOLESTEROL 43 mg/dL Normal [facility] Comment on above: Order Comment: Reaso n for Exam Other abnormal blood chemistry Reason for Exam Hyperlipidemia PT IS FASTING Reason for Exam Hypothyroidism Performed By: #### L IPID, CMP, T4F, TSH3 #### [facility] [address] Lymphocytes Auto (Bld) [#/Vo l]Ordered By: Ayanna Vicente on 09-30-2022 Lymphocytes (Bld) [#/Vol] 10.5 10*3/uL 1.00-4.8 [facility] Lymphocytes/100 WBC Auto (Bl d)Ordered By: Ayanna Vicente on 09-30-2022 Lymphocytes/100 WBC (Bld) 69.4 % . [facility] MCH Auto (RBC) [Entitic mass ]Ordered By: Ayanna Vicente on 09-30-2022 MCH (RBC) [Entitic mass] 28.4 pg 24.7-34.3 [facility] MCHC Auto (RBC) [Mass/Vol]Or dered By: Ayanna Vicente on 09-30-2022 MCHC (RBC) [Mass/Vol] 32.7 g/dL 32.0-35.0 [facility] MCV Auto (RBC) [Entitic vol] Ordered By: Ayanna Vicente on 09-30-2022 MCV (RBC) [Entitic vol] 86.9 fL 80-100 [facility] Microalbumin [Mass/volume] i n UrineOrdered By: Ayanna Vicente on 09-30-2022 Albumin DL <= 20 mg/L (U) [Mass/Vol] 1.9 mg/dL 0.0-1.8 [facility] Microalbumin, Urine (Random) on 09-30-2022 Albumin DL <= 20 mg/L (U) [Mass/Vol] 1.9 mg/dL High 0.0-1.8 [facility] Comment on above: Order Comment: Reaso n for Exam Diabetes type 2, uncontrolled Result Comment: PERF ORMED BY: [facility] [address] [place] [address] PATHOLOGIST PATHOLOGY TECH MATHIEU RASCON M.D. Performed By: #### U RMA #### [facility] [address] Monocytes Auto (Bld) [#/Vol] Ordered By: Ayanna Vicente on 09-30-2022 Monocytes (Bld) [#/Vol] 0.7 10*3/uL 0.0-0.8 [facility] Monocytes/100 WBC Auto (Bld) Ordered By: Ayanna Vicente on 09-30-2022 Monocytes/100 WBC (Bld) 4.5 % . [facility] Neutrophils Auto (Bld) [#/Vo l]Ordered By: Ayanna Vicente on 09-30-2022 Neutrophils (Bld) [#/Vol] 3.6 10*3/uL 1.8-7.7 [facility] Neutrophils/100 WBC Auto (Bl d)Ordered By: Ayanna Vicente on 09-30-2022 Neutrophils/100 WBC (Bld) 23.5 % . [facility] No Panel InformationOrdered By: Ayanna Vicente on 09-30-2022 Pharmacy Creatinine Clearance (Chem N/A [facility] Nucleated erythrocytes [Pres ence] in Blood by Automated countOrdered By: Ayanna Vicente on 09-30-2022 Nucleated RBC Auto Ql (Bld) 0.6 /100{WBC} 0-0.5 [facility] Ovalocyte detectionOrdered B y: Ayanna Vicente on 09-30-2022 Ovalocytes LM Ql (Bld) Slight [facility] Platelet adequacy [Presence] in Blood by Light microscopyOrdered By: Ayanna Vicente on 09-30-2022 Platelets LM Ql (Bld) Normal Normal [facility] Platelet mean volume Auto (B ld) [Entitic vol]Ordered By: Ayanna Vicente on 09-30-2022 Platelet mean volume (Bld) [Entitic vol] 8.9 fL 6.3-10.7 [facility] Platelet morphology finding [Identifier] in BloodOrdered By: Ayanna Vicente on 09-30-2022 Platelet morphology finding Nom (Bld) Normal Normal [facility] Platelets Auto (Bld) [#/Vol] Ordered By: Ayanna Vicente on 09-30-2022 Platelets (Bld) [#/Vol] 230 10*3/uL 150-450 [facility] Poikilocytosis [Presence] in Blood by Light microscopyOrdered By: Ayanna Vicente on 09-30-2022 Poikilocytosis LM Ql (Bld) Slight [facility] Potassium [Moles/volume] in Serum or PlasmaOrdered By: Ayanna Vicenet on 09-30-2022 Potassium [Moles/Vol] 4.5 mmol/L 3.5-5.1 [facility] Protein [Mass/volume] in Ser um or PlasmaOrdered By: Ayanna Vicente on 09-30-2022 Protein [Mass/Vol] 6.7 g/dL 6.4-8.9 [facility] RBC Auto (Bld) [#/Vol]Ordere d By: Ayanna Vicente on 09-30-2022 RBC (Bld) [#/Vol] 4.26 10*6/uL 3.60-5.00 [facility] RBC morphologyOrdered By: Vasile Vicente on 09-30-2022 RBC morphology finding Nom (Bld) N/A [facility] Scan and CBCon 09-30-2022 Anisocytosis Ql (Bld) Slight Normal [facility] Comment on above: Order Comment: Reaso n for Exam Other halfway (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 therapy Performed By: #### S CAN CBC #### [facility] [address] [place] [address] Basophils (Bld) [#/Vol] 0.0 10*3/uL Normal 0.0-0.2 [facility] Comment on above: Order Comment: Reaso n for Exam Other halfway (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 therapy Performed By: #### S CAN CBC #### [facility] [address] [place] [address] [place] Basophils/100 WBC (Bld) 0.3 % Normal . [facility] Comment on above: Order Comment: Reaso n for Exam 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 coordinator (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 therapy Performed By: #### S CAN CBC #### [facility] [address] [place] [address] [place] Eosinophils (Bld) [#/Vol] 0.3 10*3/uL Normal 0.0-0.45 [facility] Comment on above: Order Comment: Reaso n for Exam Other halfway (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 therapy Performed By: #### S CAN CBC #### [facility] [address] [place] [address] Eosinophils/100 WBC (Bld) 2.3 % Normal . [facility] Comment on above: Order Comment: Reaso n for Exam 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 coordinator (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 therapy Performed By: #### S CAN CBC #### [address] Erythrocyte distribution width (RBC) [Ratio] 15.4 % High 11.9-15.3 [facility] Comment on above: Order Comment: Reaso n for Exam 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 coordinator (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 therapy Performed By: #### S CAN CBC #### [address] Hematocrit (Bld) [Volume fraction] 37.0 % Normal 34.0-46.4 [facility] Comment on above: Order Comment: Reaso n for Exam Other halfway (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 therapy Performed By: #### S CAN CBC #### [facility] [address] [place] [address] [place] Hemoglobin (Bld) [Mass/Vol] 12.1 g/dL Normal 11.8-15.4 [facility] Comment on above: Order Comment: Reaso n for Exam 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 coordinator (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 therapy Performed By: #### S CAN CBC #### [facility] [address] [place] [address] [place] Lymphocytes (Bld) [#/Vol] 10.5 10*3/uL High 1.00-4.8 [facility] Comment on above: Order Comment: Reaso n for Exam 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 coordinator (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 therapy Performed By: #### S CAN CBC #### [facility] [address] [place] [address] [place] Lymphocytes/100 WBC (Bld) 69.4 % Normal . [facility] Comment on above: Order Comment: Reaso n for Exam 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 coordinator (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 therapy Performed By: #### S CAN CBC #### [facility] [address] [place] [address] MCH (RBC) [Entitic mass] 28.4 pg Normal 24.7-34.3 [facility] Comment on above: Order Comment: Reaso n for Exam 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 coordinator (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 therapy Performed By: #### S CAN CBC #### [address] MCV (RBC) [Entitic vol] 86.9 fL Normal 80-100 [facility] Comment on above: Order Comment: Reaso n for Exam 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 coordinator (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 therapy Performed By: #### S CAN CBC #### [facility] [address] [place] [address] Mean Corpuscular HGB Conc 32.7 g/dL Normal 32.0-35.0 [facility] Comment on above: Order Comment: Reaso n for Exam 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 coordinator (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 therapy Performed By: #### S CAN CBC #### [facility] [address] [place] [address] [place] Monocytes (Bld) [#/Vol] 0.7 10*3/uL Normal 0.0-0.8 [facility] Comment on above: Order Comment: Reaso n for Exam 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 coordinator (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 therapy Performed By: #### S CAN CBC #### [facility] [address] [place] [address] [place] Monocytes/100 WBC (Bld) 4.5 % Normal . [facility] Comment on above: Order Comment: Reaso n for Exam Other halfway (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 therapy Performed By: #### S CAN CBC #### [facility] [address] [place] [address] Neutrophils (Bld) [#/Vol] 3.6 10*3/uL Normal 1.8-7.7 [facility] Comment on above: Order Comment: Reaso n for Exam Other halfway (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 therapy Performed By: #### S CAN CBC #### [facility] [address] [place] [address] Neutrophils/100 WBC (Bld) 23.5 % Normal . [facility] Comment on above: Order Comment: Reaso n for Exam Other halfway (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 therapy Performed By: #### S CAN CBC #### [facility] [address] [place] [address] NRBC% 0.6 /100{WBC} High 0-0.5 [facility] Comment on above: Order Comment: Reaso n for Exam 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 coordinator (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 therapy Performed By: #### S CAN CBC #### [facility] [address] [place] [address] Ovalocytes Slight Normal [facility] Comment on above: Order Comment: Reaso n for Exam 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 coordinator (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 therapy Performed By: #### S CAN CBC #### [address] Platelet Estimate Normal Normal Normal [facility] Comment on above: Order Comment: Reaso n for Exam Other halfway (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 therapy Performed By: #### S CAN CBC #### [facility] [address] [place] [address] Platelet mean volume (Bld) [Entitic vol] 8.9 fL Normal 6.3-10.7 [facility] Comment on above: Order Comment: Reaso n for Exam Other halfway (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 therapy Performed By: #### S CAN CBC #### [facility] [address] [place] [address] Platelet Morphology Normal Normal Normal [facility] Comment on above: Order Comment: Reaso n for Exam Other halfway (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 therapy Result Comment: PERF ORMED BY: [place] [address] PATHOLOGIST PATHOLOGY TECH MATHIEU RASCON M.D. Performed By: #### S CAN CBC #### [facility] [address] [place] [address] Platelets (Bld) [#/Vol] 230 10*3/uL Normal 150-450 [facility] Comment on above: Order Comment: Reaso n for Exam 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 coordinator (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 therapy Performed By: #### S CAN CBC #### [facility] [address] [place] [address] Poikilocytosis Slight Normal [facility] Comment on above: Order Comment: Reaso n for Exam Other halfway (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 therapy Performed By: #### S CAN CBC #### [facility] [address] [place] [address] RBC (Bld) [#/Vol] 4.26 10*6/uL Normal 3.60-5.00 [facility] Comment on above: Order Comment: Reaso n for Exam 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 coordinator (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 therapy Performed By: #### S CAN CBC #### [facility] [address] [place] [address] WBC (Bld) [#/Vol] 15.2 10*3/uL High 3.8-11.6 [facility] Comment on above: Order Comment: Reaso n for Exam 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 coordinator (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 therapy Performed By: #### S CAN CBC #### [facility] [address] [place] [address] Serum or plasma albumin/glob ulin mass ratioOrdered By: Ayanna Vicente on 09-30-2022 Albumin/Globulin [Mass ratio] 1.8 {ratio} [facility] Serum or plasma anion gap de terminationOrdered By: Ayanna Vicente on 09-30-2022 Anion gap [Moles/Vol] 12.1 mmol/L 6.0-15.0 [facility] Serum or plasma high density lipoprotein (HDL) cholesterol measurementOrdered By: Ayanna Vicente on 09-30-2022 Cholesterol in HDL [Mass/Vol] 39 mg/dL 35-85 [facility] Comment on above: HDL CHOL ATP-III CLA SSIFICATION Cardiovascular RiskHDL > or equal to 60 mg/dL LOWHDL < 40 mg/dL HIGH Serum or plasma total choles terol/high density lipoprotein (HDL) cholesterol mass ratOrdered By: Ayanna Vicente on 09-30-2022 Cholesterol.total/Choles terol in HDL [Mass ratio] 3.0 {ratio} <5.0 [facility] Sodium [Moles/volume] in Ser um or PlasmaOrdered By: Ayanna Vicente on 09-30-2022 Sodium [Moles/Vol] 142 mmol/L 136-145 [facility] Thyroid Stimulating Hormoneo n 09-30-2022 TSH Qn 2.04 m[IU]/L Normal 0.45-5.33 [facility] Comment on above: Order Comment: Reaso n for Exam Other abnormal blood chemistry Reason for Exam Hyperlipidemia PT IS FASTING Reason for Exam Hypothyroidism Result Comment: PERF ORMED BY: [place] [address] PATHOLOGIST PATHOLOGY TECH MATHIEU RASCON M.D. Performed By: #### L IPID, CMP, T4F, TSH3 #### [address] Thyrotropin [Units/volume] i n Serum or PlasmaOrdered By: Ayanna Vicente on 09-30-2022 TSH Qn 2.04 m[IU]/L 0.45-5.33 [facility] Thyroxine (T4) free [Mass/vo lume] in Serum or PlasmaOrdered By: Ayanna Vicente on 09-30-2022 Free T4 [Mass/Vol] 0.86 ng/dL 0.61-1.12 [facility] Triglyceride [Mass/volume] i n Serum or PlasmaOrdered By: Ayanna Vicente on 09-30-2022 Triglyceride [Mass/Vol] 216 mg/dL 0-149 [facility] Comment on above: TRIG ATP III CLASSIF ICATIONTRIG less than 150 mg/dL NormalTRIG 150-199 mg/dL Borderline highTRIG 200-500 mg/dL High TRIG greater than 500 mg/dL Very highStandard traceable to the Center for Disease Conrtrol and Prevention (CDC) test method. Triiodothyronine (T3) Freeon 09-30-2022 Triiodothyronine (T3) Free 3.13 pg/mL Normal 2.50-3.90 [facility] Comment on above: Order Comment: Reaso n for Exam Hypothyroidism Result Comment: PERF ORMED BY: [place] [address] PATHOLOGIST PATHOLOGY TECH MATHIEU RASCON M.D. Performed By: #### T 3F #### [address] Triiodothyronine (T3) Free [ Mass/volume] in Serum or PlasmaOrdered By: Ayanna Vicente on 09-30-2022 Free T3 [Mass/Vol] 3.13 pg/mL 2.50-3.90 [facility] Urea nitrogen [Mass/volume] in Serum or PlasmaOrdered By: Ayanna Vicente on 09-30-2022 Urea nitrogen [Mass/Vol] 33 mg/dL 7 [facility] WBC Auto (Bld) [#/Vol]Ordere d By: Ayanna Vicente on 09-30-2022 WBC (Bld) [#/Vol] 15.2 10*3/uL 3.8-11.6 [facility] XR pre/post mri xrayon 09-24 XR pre/post mri xray [facility] [place] [address] [place] [address] MRI Report Signed Patient: Kathy Washburn MR#: [id number] : 1940 Acct:[id number] Age/Sex: 82 / F ADM Date: 09/24/22 Loc: [facility] Room: Type: [facility] CLI Attending Dr: Sharda SHAH Copies to: PABLO Sam Ordering Provider: PABLO Sam Date of Service: 09/24/22 MR/MR cervical spine wo con: M50.30 DDD CERVICAL ([id number]) XR/XR pre/post mri xray: CERVICAL PRE'S MR [...] Favian Pacheco M.D.09/24/2022 4:02 PM Dictation Location: [place] [address] Transcribed By: [facility] 09/24/22 1602 Dictated By: Favian Pacheco II, MD 09/24/22 1548 Signed By: 09/24/22 1602 Normal [facility] MM diagnostic mammo BI w/CAD on 08-29-2022 MM diagnostic mammo BI w/CAD [facility] [place] [place] [address] Ultrasound Report Signed Patient: Kathy Washburn MR#: [id number] : 1940 Acct:[id number] Age/Sex: 82 / F ADM Date: 08/29/22 Loc: [place] Room: Type: [facility] Attending Dr: Francine Lares MD Ordering Provider: Francine Lares MD Date of Service: 08/29/22 MM/MM diagnostic mammo BI w/CAD: LUMP LEFT BREAST ([id number]) US/US breast LT limited: Z12.31 Copies to: [...] Rodriguez Jr., D.OArmando08/29/2022 2:18 PM Dictation Location: [facility] Tech: Corazon Marcelino Transcribed By: STAS 08/29/221417 Dictated By: Galo Rodriguez Jr, DO 08/29/221413 Signed By: 08/29/22 141 [facility] MR lumbar spine wo michaelleon MR lumbar spine wo con [facility] Main [place] [address] [place] [address] MRI Report Signed Patient: Kathy Washburn MR#: [id number] : 1940 Acct:[id number] Age/Sex: 82 / F ADM Date: 08/29/22 Loc: [facility] Room: Type: [facility] CLI Attending Dr: Sharda SHAH Copies to: [...] 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 [id number] bilateral neural foraminal narrowing secondary to disc [...] Stanford Arndt M.D.08/29/2022 2:17 PM Dictation Location: [place] [address] Transcribed By: [facility] 08/29/22 1417 Dictated By: Stanford Arndt DO 08/29/22 1401 Signed By: 08/29/22 1417 Normal [facility] XR pre/post mri xrayon 08-29 XR pre/post mri xray [facility] [place] [place] [address] XRay Report Signed Patient: Kathy Washburn MR#: [id number] : 1940 Acct:[id number] Age/Sex: 82 / F ADM Date: 08/29/22 Loc: [facility] Room: Type: [facility] Attending Dr: Sharda SHAH Copies to: PABLO [...] Stanford Arndt M.D.08/29/2022 2:28 PM Dictation Location: [facility]- Transcribed By: [facility] 08/29/22 142 Dictated By: Stanford Arndt DO 08/29/221425 Signed By: 08/29/221427 [facility] XR ribs LT min 3V w CXR1V*on 08-12-2022 XR ribs LT min 3V w CXR1V* [place] [address] XRay Report Signed Patient: Kathy Washburn MR#: [id number] : 1940 Acct:[id number] Age/Sex: 82 / F ADM Date: 08/12/22 Loc: XD Room: Type: [facility] Attending Dr: Francine Lares MD Copies to: [...] Favian Pacheco M.D.08/12/2022 3:15 PM Dictation Location: [facility]- Transcribed By: STAS 08/12/22 151 Dictated By: Favian Pacheco II, MD 08/12/221511 Signed By: 08/12/221514 [facility] CA holter monitor recordingo n 08-02-2022 CA holter monitor recording [place] [address] [place] [address] Holter Monitor Report Signed Patient: Kathy Washburn MR#: [id number] : 1940 Acct:[id number] Age/Sex: 82 / F ADM Date: 07/24/22 Loc: Room: Type: [facility] Attending Dr: Ayanna Vicente DO Copies to: DO Saarh Davila MD Ordering Provider: Ayanna Vicente DO [...] MD 08/02/22 1551 Signed By: 08/02/22 1832 [facility] No Panel InformationOrdered By: Ayanna Vicente on 04-23-2022 25-Hydroxy Vitamin D Total 49.9 ng/mL 30-100 [facility] Comment on above: VITAMIN D STATUS 25( [place])VITAMIN D RANGE (ng/mL) Deficient <20 Insufficient 20 to <30Sufficient 30 to 100Reference: Nile CAMPOS,Joon HOPKINS, Chon ROD, et al. Evaluation,treatment, and prevention of vitamin D deficiency; an Endocrine Society clinical practice guideline. JCEM. 2010; 96(7):1911-30. LD LACTATE DEHYDROon 022 LDH [Catalytic activity/Vol] 202 U/L 135 - 214 U/L [facility] Albumin [Mass/volume] in Ser um or PlasmaOrdered By: Ayanna Vicente on 04-01-2022 Albumin [Mass/Vol] 3.5 g/dL 3.2-5.5 [facility] Basophils Auto (Bld) [#/Vol] Ordered By: Ayanna Vicente on 04-01-2022 Basophils (Bld) [#/Vol] N/A [facility] Basophils/100 WBC Auto (Bld) Ordered By: Ayanna Vicente on 04-01-2022 Basophils/100 WBC (Bld) N/A [facility] Blood anisocytosis detection Ordered By: Ayanna Vicente on 04-01-2022 Anisocytosis Ql (Bld) [place] Blood hemoglobin measurement (mass/volume)Ordered By: Ayanna Vicente on 04-01-2022 Hemoglobin (Bld) [Mass/Vol] 12.3 g/dL 11.8-15.4 [facility] Blood leukocytes automated c ount (number/volume)Ordered By: Ayanna Vicente on 04-01-2022 WBC (Bld) [#/Vol] 12.0 10*3/uL 4.5-11.0 [facility] Cerebrospinal fluid unidenti fied cells/100 leukocytesOrdered By: Ayanna Vicente on 04-01-2022 Unidentified cells/100 WBC (CSF) 2 % 0-0 [facility] Comment on above: PRO LYMPHOCYTE Cholesterol [Mass/volume] in Serum or PlasmaOrdered By: Ayanna Vicente on 04-01-2022 Cholesterol [Mass/Vol] 102 mg/dL 140-200 [facility] Comment on above: Chol less than 200 m g/dl low risk Chol 201-239 mg/dl borderline risk Chol 240 mg/dl and greater high risk Chol less than 200 m g/dl low riskChol 201-239 mg/dl borderline riskChol 240 mg/dl and greater high risk Cholesterol in LDL Calc [Mas s/Vol]Ordered By: Ayanna Vicente on 04-01-2022 Cholesterol in LDL [Mass/Vol] 27 mg/dL 0-100 [facility] Comment on above: LDL ATP III CLASSIFI [...] 04-01-2022 Cholesterol in VLDL [Mass/Vol] 25 mg/dL [facility] Creatinine and Glomerular fi ltration rate.predicted panel (S/P/Bld)Ordered By: Ayanna Vicente on 04-01-2022 Creatinine [Mass/Vol] 0.84 mg/dL 0.44-1.03 [facility] Eosinophils Auto (Bld) [#/Vo l]Ordered By: Ayanna Vicente on 04-01-2022 Eosinophils (Bld) [#/Vol] N/A [facility] Eosinophils/100 WBC Auto (Bl d)Ordered By: Ayanna Vicente on 04-01-2022 Eosinophils/100 WBC (Bld) N/A [facility] Erythrocyte distribution wid th Auto (RBC) [Ratio]Ordered By: Ayanna Vicente on 04-01-2022 Erythrocyte distribution width (RBC) [Ratio] 17.0 % 11.9-15.3 [facility] Estimated glomerular filtrat ion rate (GFR) non- AmericanOrdered By: Ayanna Vicente on 04-01-2022 GFR/1.73 sq M.predicted among non-blacks MDRD (S/P/Bld) [Vol rate/Area] > 60 mL/Min [facility] Globulin Calc (S) [Mass/Vol] Ordered By: Ayanna Vicente on 04-01-2022 Globulin (S) [Mass/Vol] 2.9 g/dL [facility] Glucose mean value [Mass/vol ume] in Blood Estimated from glycated hemoglobinOrdered By: Ayanna Vicente on 04-01-2022 Average glucose Estimated from glycated hemoglobin (Bld) [Mass/Vol] 255 mg/dL [facility] Hematocrit Auto (Bld) [Volum e fraction]Ordered By: Ayanna Vicente on 04-01-2022 Hematocrit (Bld) [Volume fraction] 37.9 % 34.0-46.4 [facility] Hemoglobin A1c percentageOrd ered By: Ayanna Vicente on 04-01-2022 HbA1c (Bld) [Mass fraction] 10.5 % 4.3-5.6 [facility] Comment on above: Increased risk for d iabetes: 5.7 - 6.4 diabetes: >6.4 glycemic control for adults with diabetes: <7.0 Increased risk for d iabetes: 5.7 - 6.4diabetes: >6.4glycemic control for adults with diabetes: <7.0 Laboratory - Hematology and Cell countsOrdered By: Ayanna Vicente on 04-01-2022 Nucleated RBC/100 WBC (Bld) [Ratio] 0.2 % 0-0.5 [facility] Lymphocytes Auto (Bld) [#/Vo l]Ordered By: Ayanna Vicente on 04-01-2022 Lymphocytes (Bld) [#/Vol] N/A [facility] Lymphocytes/100 WBC Auto (Bl d)Ordered By: Ayanna Vicente on 04-01-2022 Lymphocytes/100 WBC (Bld) N/A [facility] Lymphocytes/100 WBC (Bld) 60 % 18-42 [facility] Lymphocytes/100 WBC Manual c nt (Bld)Ordered By: Ayanna Vicente on 04-01-2022 Lymphocytes/100 WBC (Bld) 3 % 0-12 [facility] MCH Auto (RBC) [Entitic mass ]Ordered By: Ayanna Vicente on 04-01-2022 MCH (RBC) [Entitic mass] 28.3 pg 24.7-34.3 [facility] MCHC Auto (RBC) [Mass/Vol]Or dered By: Ayanna Vicente on 04-01-2022 MCHC (RBC) [Mass/Vol] 32.4 g/dL 32.0-35.0 [facility] MCV Auto (RBC) [Entitic vol] Ordered By: Ayanna Vicente on 04-01-2022 MCV (RBC) [Entitic vol] 87.6 fL 80-100 [facility] Manual blood monocytes/100 l eukocytesOrdered By: Ayanna Vicente on 04-01-2022 Monocytes/100 WBC (Bld) 3 % 1-3 [facility] Monocytes Auto (Bld) [#/Vol] Ordered By: Ayanna Vicente on 04-01-2022 Monocytes (Bld) [#/Vol] N/A [facility] Monocytes/100 WBC Auto (Bld) Ordered By: Ayanna Vicente on 04-01-2022 Monocytes/100 WBC (Bld) N/A [facility] Neutrophils Auto (Bld) [#/Vo l]Ordered By: Ayanna Vicente on 04-01-2022 Neutrophils (Bld) [#/Vol] N/A [facility] Neutrophils/100 WBC Auto (Bl d)Ordered By: Ayanna Vicente on 04-01-2022 Neutrophils/100 WBC (Bld) N/A [facility] No Panel InformationOrdered By: Ayanna Vicente on 04-01-2022 Estimated GFR () > 60 mL/Min [facility] Comment on above: GFR estimated refere nce range: According to KDOQI guidelines, <60 ml/min/1.73m2 is sufficient to diagnose a patient with chronic kidney disease. Pharmacy Creatinine Clearance (Chem N/A [facility] Platelet Estimate Normal Normal [facility] Platelet Morphology Comment Normal Normal [facility] Smudge Cells Few [facility] Platelet mean volume Auto (B ld) [Entitic vol]Ordered By: Ayanna Vicente on 04-01-2022 Platelet mean volume (Bld) [Entitic vol] 9.3 fL 6.3-10.7 [facility] Platelets Auto (Bld) [#/Vol] Ordered By: Ayanna Vicente on 04-01-2022 Platelets (Bld) [#/Vol] 224 10*3/uL 150-450 [facility] Protein [Mass/volume] in Ser um or PlasmaOrdered By: Ayanna Vicente on 04-01-2022 Protein [Mass/Vol] 6.4 g/dL 6.1-7.9 [facility] RBC Auto (Bld) [#/Vol]Ordere d By: Ayanna Vicente on 04-01-2022 RBC (Bld) [#/Vol] 4.33 10*6/uL 3.60-5.00 [facility] RBC morphologyOrdered By: Vasile Vicente on 04-01-2022 RBC morphology finding Nom (Bld) N/A [facility] Segmented neutrophils/100 WB C Manual cnt (Bld)Ordered By: Ayanna Vicente on 04-01-2022 Segmented neutrophils/100 WBC (Bld) 29 % 50-70 [facility] Serum or plasma alanine roman otransferase measurement without P-5'-P (enzymatic activiOrdered By: Ayanna Vicente on 04-01-2022 ALT No additional P-5'-P [Catalytic activity/Vol] 24 U/L 10-[address] [facility] Serum or plasma albumin/glob ulin mass ratioOrdered By: Ayanna Vicente on 04-01-2022 Albumin/Globulin [Mass ratio] 1.2 {ratio} [facility] Serum or plasma alkaline mayelin sphatase measurement (enzymatic activity/volume)Ordered By: Ayanna Vicente on 04-01-2022 ALP [Catalytic activity/Vol] 75 U/L 32-92 [facility] Serum or plasma anion gap de terminationOrdered By: Ayanna Vicente on 04-01-2022 Anion gap [Moles/Vol] 15.8 mmol/L 6.0-15.0 [facility] Serum or plasma aspartate am inotransferase measurement (enzymatic activity/volume)Ordered By: Ayanna Vicente on 04-01-2022 AST [Catalytic activity/Vol] 26 U/L 10-42 [facility] Serum or plasma calcium massimo urement (mass/volume)Ordered By: Ayanna Vicente on 04-01-2022 Calcium [Mass/Vol] 9.3 mg/dL 8.2-10.2 [facility] Serum or plasma chloride chris surement (moles/volume)Ordered By: Ayanna Vicente on 04-01-2022 Chloride [Moles/Vol] 103 mmol/L 95-114 [facility] Serum or plasma glucose massimo urement (mass/volume)Ordered By: Ayanna Vicente on 04-01-2022 Glucose [Mass/Vol] 163 mg/dL 70-100 [facility] Comment on above: ADA recommended refe rence [...] Cholesterol in HDL [Mass/Vol] 50 mg/dL 35-85 [facility] Comment on above: HDL CHOL ATP-III CLA SSIFICATION Cardiovascular Risk HDL > or equal to 60 mg/dL LOW HDL < 40 mg/dL HIGH HDL CHOL ATP-III CLA SSIFICATION Cardiovascular RiskHDL > or equal to 60 mg/dL LOWHDL < 40 mg/dL HIGH Serum or plasma potassium me asurement (moles/volume)Ordered By: Ayanna Vicente on 04-01-2022 Potassium [Moles/Vol] 4.4 mmol/L 3.5-5.1 [facility] Serum or plasma sodium measu rement (moles/volume)Ordered By: Ayanna Vicente on 04-01-2022 Sodium [Moles/Vol] 141 mmol/L 136-146 [facility] Serum or plasma total biliru bin measurement (mass/volume)Ordered By: Ayanna Viecnte on 04-01-2022 Bilirubin [Mass/Vol] 0.3 mg/dL 0.3-1.2 [facility] Serum or plasma total carbon dioxide measurement (moles/volume)Ordered By: Ayanna Vicente on 04-01-2022 CO2 [Moles/Vol] 26.6 mmol/L 22.0-30.0 [facility] Serum or plasma total choles terol/high density lipoprotein (HDL) cholesterol mass ratOrdered By: Ayanna Vicente on 04-01-2022 Cholesterol.total/Choles terol in HDL [Mass ratio] 2.0 {ratio} <5.0 [facility] Serum or plasma urea nitroge n measurement (mass/volume)Ordered By: Ayanna Vicente on 04-01-2022 Urea nitrogen [Mass/Vol] 12 mg/dL 9-23 [facility] TSH DL <= 0.005 mIU/L QnOrde red By: Ayanna Vicente on 04-01-2022 TSH Qn 1.11 m[IU]/L 0.45-5.33 [facility] Thyroxine (T4) free [Mass/vo lume] in Serum or PlasmaOrdered By: Ayanna Vicente on 04-01-2022 Free T4 [Mass/Vol] 1.02 ng/dL 0.61-1.12 [facility] Triglyceride [Mass/volume] i n Serum or PlasmaOrdered By: Ayanna Vicente on 04-01-2022 Triglyceride [Mass/Vol] 125 mg/dL 35-149 [facility] Comment on above: TRIG ATP III CLASSIF [...] 04-01-2022 Free T3 [Mass/Vol] 2.81 pg/mL 2.50-3.90 [facility] Glucose Glucometer (BldC) [M ass/Vol]Ordered By: Galo Max on 01-26-2022 Glucose [Mass/Vol] 117 mg/dL [facility] Comment on above: Random Glucose Refer ence Range is dependent on time and content of last meal. Glucose of more than 200 mg/dL in a nonstressed, ambulatory subject supports the diagnosis of Diabetes Mellitus. Basophils Auto (Bld) [#/Vol] Ordered By: Ashley Ramos on 01-25-2022 Basophils (Bld) [#/Vol] 0.0 10*3/uL 0.0-0.2 [facility] Basophils/100 WBC Auto (Bld) Ordered By: Ashley Ramos on 01-25-2022 Basophils/100 WBC (Bld) 0.3 % . [facility] Blood hemoglobin measurement (mass/volume)Ordered By: Ashley Ramos on 01-25-2022 Hemoglobin (Bld) [Mass/Vol] 11.0 g/dL 11.8-15.4 [facility] Blood leukocytes automated c ount (number/volume)Ordered By: Ashley Ramos on 01-25-2022 WBC (Bld) [#/Vol] 9.5 10*3/uL 4.5-11.0 [facility] Creatinine and Glomerular fi ltration rate.predicted panel (S/P/Bld)Ordered By: Ashley Ramos on 01-25-2022 Creatinine [Mass/Vol] 0.78 mg/dL 0.44-1.03 [facility] Eosinophils Auto (Bld) [#/Vo l]Ordered By: Ashley Ramos on 01-25-2022 Eosinophils (Bld) [#/Vol] 0.3 10*3/uL 0.0-0.45 [facility] Eosinophils/100 WBC Auto (Bl d)Ordered By: Ashley Ramos on 01-25-2022 Eosinophils/100 WBC (Bld) 3.6 % . [facility] Erythrocyte distribution wid th Auto (RBC) [Ratio]Ordered By: Ashley Ramos on 01-25-2022 Erythrocyte distribution width (RBC) [Ratio] 15.4 % 11.9-15.3 [facility] Estimated glomerular filtrat ion rate (GFR) non- AmericanOrdered By: Ashley Ramos on 01-25-2022 GFR/1.73 sq M.predicted among non-blacks MDRD (S/P/Bld) [Vol rate/Area] > 60 mL/Min [facility] Hematocrit Auto (Bld) [Volum e fraction]Ordered By: Ashley Ramos on 01-25-2022 Hematocrit (Bld) [Volume fraction] 33.2 % 34.0-46.4 [facility] Laboratory - Hematology and Cell countsOrdered By: Ashley Ramos on 01-25-2022 Nucleated RBC/100 WBC (Bld) [Ratio] 0.2 % 0-0.5 [facility] Lymphocytes Auto (Bld) [#/Vo l]Ordered By: Ashley Ramos on 01-25-2022 Lymphocytes (Bld) [#/Vol] 6.4 10*3/uL 1.00-4.8 [facility] Lymphocytes/100 WBC Auto (Bl d)Ordered By: Ashley Ramos on 01-25-2022 Lymphocytes/100 WBC (Bld) 67.6 % . [facility] MCH Auto (RBC) [Entitic mass ]Ordered By: Ashley Ramos on 01-25-2022 MCH (RBC) [Entitic mass] 28.7 pg 24.7-34.3 [facility] MCHC Auto (RBC) [Mass/Vol]Or dered By: Ashley Ramos on 01-25-2022 MCHC (RBC) [Mass/Vol] 33.3 g/dL 32.0-35.0 [facility] MCV Auto (RBC) [Entitic vol] Ordered By: Ashley Ramos on 01-25-2022 MCV (RBC) [Entitic vol] 86.3 fL 80-100 [facility] Monocytes Auto (Bld) [#/Vol] Ordered By: Ashley Ramos on 01-25-2022 Monocytes (Bld) [#/Vol] 0.7 10*3/uL 0.0-0.8 [facility] Monocytes/100 WBC Auto (Bld) Ordered By: Ashley Ramos on 01-25-2022 Monocytes/100 WBC (Bld) 7.4 % . [facility] Neutrophils Auto (Bld) [#/Vo l]Ordered By: Ashley Ramos on 01-25-2022 Neutrophils (Bld) [#/Vol] 2.0 10*3/uL 1.8-7.7 [facility] Neutrophils/100 WBC Auto (Bl d)Ordered By: Ashley Ramos on 01-25-2022 Neutrophils/100 WBC (Bld) 21.1 % . [facility] No Panel InformationOrdered By: Ashley Ramos on 01-25-2022 Estimated GFR () > 60 mL/Min [facility] Comment on above: GFR estimated refere nce range: According to KDOQI guidelines, <60 ml/min/1.73m2 is sufficient to diagnose a patient with chronic kidney disease. Pharmacy Creatinine Clearance (Chem 76.46 [facility] Platelet Estimate Normal Normal [facility] Platelet Morphology Comment Normal Normal [facility] Smudge Cells Few [facility] Platelet mean volume Auto (B ld) [Entitic vol]Ordered By: Ashley Ramos on 01-25-2022 Platelet mean volume (Bld) [Entitic vol] 8.6 fL 6.3-10.7 [facility] Platelets Auto (Bld) [#/Vol] Ordered By: Ashley Ramos on 01-25-2022 Platelets (Bld) [#/Vol] 240 10*3/uL 150-450 [facility] RBC Auto (Bld) [#/Vol]Ordere d By: Ashley Ramos on 01-25-2022 RBC (Bld) [#/Vol] 3.84 10*6/uL 3.60-5.00 [facility] RBC morphologyOrdered By: Kendall Ramos on 01-25-2022 RBC morphology finding Nom (Bld) Normal [facility] Serum or plasma calcium massimo urement (mass/volume)Ordered By: Ashley Ramos on 01-25-2022 Calcium [Mass/Vol] 8.7 mg/dL 8.2-10.2 [facility] Serum or plasma chloride chris surement (moles/volume)Ordered By: Ashley Ramos on 01-25-2022 Chloride [Moles/Vol] 101 mmol/L 95-114 [facility] Serum or plasma glucose massimo urement (mass/volume)Ordered By: Ashley Ramos on 01-25-2022 Glucose [Mass/Vol] 133 mg/dL 70-100 [facility] Comment on above: ADA recommended refe rence [...] 01-25-2022 Potassium [Moles/Vol] 4.0 mmol/L 3.5-5.1 [facility] Serum or plasma sodium measu rement (moles/volume)Ordered By: Ashley Ramos on 01-25-2022 Sodium [Moles/Vol] 141 mmol/L 136-146 [facility] Serum or plasma total carbon dioxide measurement (moles/volume)Ordered By: Ashley Ramos on 01-25-2022 CO2 [Moles/Vol] 30.7 mmol/L 22.0-30.0 [facility] Serum or plasma urea nitroge n measurement (mass/volume)Ordered By: Ashley Ramos on 01-25-2022 Urea nitrogen [Mass/Vol] 14 mg/dL 9-23 [facility] No Panel InformationOrdered By: Galo Max on 01-24-2022 Bedside Glucose Comment Glu2: cleaned meter [facility] Bacterial blood cultureOrder ed By: James Redding on 01-18-2022 Bacteria identified Cx Nom (Bld) NO GROWTH 5 DAYS [facility] Albumin [Mass/volume] in Ser um or PlasmaOrdered By: Galo Max on 01-16-2022 Albumin [Mass/Vol] 3.1 g/dL 3.2-5.5 [facility] Blood acanthocytes detection by light microscopyOrdered By: Galo Max on 01-16-2022 Acanthocytes LM Ql (Bld) Rare [facility] Globulin Calc (S) [Mass/Vol] Ordered By: Galo Max on 01-16-2022 Globulin (S) [Mass/Vol] 3.0 g/dL [facility] No Panel InformationOrdered By: Galo Max on 01-16-2022 CBC Comment See comment [facility] Comment on above: Slide referred to joshua thologist for review Protein [Mass/volume] in Ser um or PlasmaOrdered By: Galo Max on 01-16-2022 Protein [Mass/Vol] 6.1 g/dL 6.1-7.9 [facility] Serum or plasma alanine roman otransferase measurement without P-5'-P (enzymatic activiOrdered By: Galo Max on 01-16-2022 ALT No additional P-5'-P [Catalytic activity/Vol] 24 U/L 10-[address] [facility] Serum or plasma albumin/glob ulin mass ratioOrdered By: Galo Max on 01-16-2022 Albumin/Globulin [Mass ratio] 1.0 {ratio} [facility] Serum or plasma alkaline mayelin sphatase measurement (enzymatic activity/volume)Ordered By: Galo Max on 01-16-2022 ALP [Catalytic activity/Vol] 88 U/L 32-92 [facility] Serum or plasma aspartate am inotransferase measurement (enzymatic activity/volume)Ordered By: Galo Max on 01-16-2022 AST [Catalytic activity/Vol] 23 U/L 10-42 [facility] Serum or plasma prealbumin m easurement (mass/volume)Ordered By: Galo Max on 01-16-2022 Prealbumin [Mass/Vol] 22.1 mg/dL 18.0-38.0 [facility] Serum or plasma total biliru bin measurement (mass/volume)Ordered By: Galo Max on 01-16-2022 Bilirubin [Mass/Vol] 0.6 mg/dL 0.3-1.2 [facility] Creatinine and Glomerular fi ltration rate.predicted panel (S/P/Bld)Ordered By: Bertram Garrison on 01-15-2022 Creatinine [Mass/Vol] 0.80 mg/dL 0.44-1.03 [facility] Comment on above: Delta: 1.35 on 01/14 Estimated glomerular filtrat ion rate (GFR) non- AmericanOrdered By: Bertram Garrison on 01-15-2022 GFR/1.73 sq M.predicted among non-blacks MDRD (S/P/Bld) [Vol rate/Area] > 60 mL/Min [facility] Glucose Glucometer (BldC) [M ass/Vol]Ordered By: Bertram Garrison on 01-15-2022 Glucose [Mass/Vol] 226 mg/dL [facility] Comment on above: Random Glucose Refer ence Range is dependent on time and content of last meal. Glucose of more than 200 mg/dL in a nonstressed, ambulatory subject supports the diagnosis of Diabetes Mellitus. No Panel InformationOrdered By: Bertram Garrison on 01-15-2022 Bedside Glucose Comment Glu2: cleaned meter [facility] Estimated GFR () > 60 mL/Min [facility] Comment on above: GFR estimated refere nce range: According to KDOQI guidelines, <60 ml/min/1.73m2 is sufficient to diagnose a patient with chronic kidney disease. Pharmacy Creatinine Clearance (Chem 75.85 [facility] Serum or plasma calcium massimo urement (mass/volume)Ordered By: Bertram Garrison on 01-15-2022 Calcium [Mass/Vol] 9.2 mg/dL 8.2-10.2 [facility] Serum or plasma chloride chris surement (moles/volume)Ordered By: Bertram Garrison on 01-15-2022 Chloride [Moles/Vol] 99 mmol/L 95-114 [facility] Serum or plasma glucose massimo urement (mass/volume)Ordered By: Bertram Garrison on 01-15-2022 Glucose [Mass/Vol] 293 mg/dL 70-100 [facility] Comment on above: ADA recommended refe rence range Random Glucose Reference Range is dependent on time and content of last meal. Glucose of more than 200 mg/dL in a nonstressed, ambulatory subject supports the diagnosis of Diabetes Mellitus. Serum or plasma potassium me asurement (moles/volume)Ordered By: Bertram Garrison on 01-15-2022 Potassium [Moles/Vol] 4.3 mmol/L 3.5-5.1 [facility] Serum or plasma sodium measu rement (moles/volume)Ordered By: Bertram Garrison on 01-15-2022 Sodium [Moles/Vol] 136 mmol/L 136-146 [facility] Serum or plasma total carbon dioxide measurement (moles/volume)Ordered By: Bertram Garrison on 01-15-2022 CO2 [Moles/Vol] 29.1 mmol/L 22.0-30.0 [facility] Serum or plasma urea nitroge n measurement (mass/volume)Ordered By: Bertram Garrison on 01-15-2022 Urea nitrogen [Mass/Vol] 23 mg/dL 9-23 [facility] Urine culture routineOrdered By: James Redding on 01-15-2022 Bacteria identified Cx Nom (U) Enterococcus faecalis [facility] Basophils Auto (Bld) [#/Vol] Ordered By: Bertram Garrison on 01-14-2022 Basophils (Bld) [#/Vol] 0.1 10*3/uL 0.0-0.2 [facility] Basophils/100 WBC Auto (Bld) Ordered By: Bertram Garrison on 01-14-2022 Basophils/100 WBC (Bld) 0.6 % . [facility] Blood acanthocytes detection by light microscopyOrdered By: Bertram Garrison on 01-14-2022 Acanthocytes LM Ql (Bld) Few [facility] Blood hemoglobin measurement (mass/volume)Ordered By: Bertram Garrison on 01-14-2022 Hemoglobin (Bld) [Mass/Vol] 11.7 g/dL 11.8-15.4 [facility] Blood leukocytes automated c ount (number/volume)Ordered By: Bertram Garrison on 01-14-2022 WBC (Bld) [#/Vol] 11.5 10*3/uL 4.5-11.0 [facility] Eosinophils Auto (Bld) [#/Vo l]Ordered By: Bertram Garrison on 01-14-2022 Eosinophils (Bld) [#/Vol] 0.4 10*3/uL 0.0-0.45 [facility] Eosinophils/100 WBC Auto (Bl d)Ordered By: Bertram Garrison on 01-14-2022 Eosinophils/100 WBC (Bld) 3.3 % . [facility] Erythrocyte distribution wid th Auto (RBC) [Ratio]Ordered By: Bertram Garrison on 01-14-2022 Erythrocyte distribution width (RBC) [Ratio] 14.4 % 11.9-15.3 [facility] Hematocrit Auto (Bld) [Volum e fraction]Ordered By: Bertram Garrison on 01-14-2022 Hematocrit (Bld) [Volume fraction] 35.4 % 34.0-46.4 [facility] Laboratory - Hematology and Cell countsOrdered By: Bertram Garrison on 01-14-2022 Nucleated RBC/100 WBC (Bld) [Ratio] 0.3 % 0-0.5 [facility] Lymphocytes Auto (Bld) [#/Vo l]Ordered By: Bertram Garrison on 01-14-2022 Lymphocytes (Bld) [#/Vol] 7.2 10*3/uL 1.00-4.8 [facility] Lymphocytes/100 WBC Auto (Bl d)Ordered By: Bertram Garrison on 01-14-2022 Lymphocytes/100 WBC (Bld) 62.9 % . [facility] MCH Auto (RBC) [Entitic mass ]Ordered By: Bertram Garrison on 01-14-2022 MCH (RBC) [Entitic mass] 28.4 pg 24.7-34.3 [facility] MCHC Auto (RBC) [Mass/Vol]Or dered By: Bertram Garrison on 01-14-2022 MCHC (RBC) [Mass/Vol] 32.9 g/dL 32.0-35.0 [facility] MCV Auto (RBC) [Entitic vol] Ordered By: Bertram Garrison on 01-14-2022 MCV (RBC) [Entitic vol] 86.1 fL 80-100 [facility] Monocytes Auto (Bld) [#/Vol] Ordered By: Bertram Garrison on 01-14-2022 Monocytes (Bld) [#/Vol] 0.6 10*3/uL 0.0-0.8 [facility] Monocytes/100 WBC Auto (Bld) Ordered By: Bertram Garrison on 01-14-2022 Monocytes/100 WBC (Bld) 5.0 % . [facility] Neutrophils Auto (Bld) [#/Vo l]Ordered By: Bertram Garrison on 01-14-2022 Neutrophils (Bld) [#/Vol] 3.2 10*3/uL 1.8-7.7 [facility] Neutrophils/100 WBC Auto (Bl d)Ordered By: Bertram Garrison on 01-14-2022 Neutrophils/100 WBC (Bld) 28.2 % . [facility] No Panel InformationOrdered By: Bertram Garrison on 01-14-2022 Platelet Estimate Normal Normal [facility] Platelet Morphology Comment Normal Normal [facility] Platelet mean volume Auto (B ld) [Entitic vol]Ordered By: Bertram Garrison on 01-14-2022 Platelet mean volume (Bld) [Entitic vol] 9.8 fL 6.3-10.7 [facility] Platelets Auto (Bld) [#/Vol] Ordered By: Bertram Garrison on 01-14-2022 Platelets (Bld) [#/Vol] 277 10*3/uL 150-450 [facility] RBC Auto (Bld) [#/Vol]Ordere d By: Bertram Garrison on 01-14-2022 RBC (Bld) [#/Vol] 4.11 10*6/uL 3.60-5.00 [facility] RBC morphologyOrdered By: New Garrison on 01-14-2022 RBC morphology finding Nom (Bld) Normal [facility] Albumin [Mass/volume] in Ser um or PlasmaOrdered By: James Redding on 01-13-2022 Albumin [Mass/Vol] 3.1 g/dL 3.2-5.5 [facility] Automated erythrocytes count in urine sediment (number/area)Ordered By: James Redding on 01-13-2022 RBC Auto (Urine sed) [#/Area] 0-1 [HPF] 0-4 [facility] Automated leukocytes count i n urine sediment (number/area)Ordered By: James Redding on 01-13-2022 WBC Auto (Urine sed) [#/Area] 50-100 [HPF] 0-4 [facility] Bilirubin Test strip Ql (U)O rdered By: James Redding on 01-13-2022 Bilirubin Ql (U) 1+ Negative [facility] COVID-19 Positive/NegativeOr dered By: James Redding on 01-13-2022 SARS-CoV-2 (COVID-19) N gene FARRAH+probe Ql (Resp) Negative Negative [facility] Comment on above: Testing for SARS-CoV -2 by RT-PCR This test was developed and its performance characteristics determined by [facility] ([place]) and validated at the [facility]. This test has not been FDA cleared [...] (COVID-19) Ag IA.rapid Ql (Resp) Negative Negative [facility] Comment on above: This is a duplicate Brianna SARS Antigen (DUSTIN) result to be used for statistical tracking purpose only. Color Auto (U)Ordered By: Anni Redding on 01-13-2022 Color (U) Dark yellow Yellow [facility] Globulin Calc (S) [Mass/Vol] Ordered By: James Redding on 01-13-2022 Globulin (S) [Mass/Vol] 3.0 g/dL [facility] Ketones Auto test strip (U) [Mass/Vol]Ordered By: James Redding on 01-13-2022 Ketones (U) [Mass/Vol] Trace Negative [facility] - UrinalysisOrder ed By: James Redding on 01-13-2022 Hyaline casts LM Ql (Urine sed) 9-19 [LPF] 0-8 [facility] Nitrite Test strip Ql (U)Ord ered By: James Redding on 01-13-2022 Nitrite Ql (U) Negative Negative [facility] No Panel InformationOrdered By: James Redding on 01-13-2022 Smudge Cells Few [facility] SARS Antigen (LFIA) [facility] Protein Auto test strip (U) [Mass/Vol]Ordered By: James Redding on 01-13-2022 Protein (U) [Mass/Vol] 30 mg/dL Negative [facility] Protein [Mass/volume] in Ser um or PlasmaOrdered By: James Redding on 01-13-2022 Protein [Mass/Vol] 6.1 g/dL 6.1-7.9 [facility] Serum or plasma alanine roman otransferase measurement without P-5'-P (enzymatic activiOrdered By: James Redding on 01-13-2022 ALT No additional P-5'-P [Catalytic activity/Vol] 27 U/L 10-[address] [facility] Serum or plasma albumin/glob ulin mass ratioOrdered By: James Redding on 01-13-2022 Albumin/Globulin [Mass ratio] 1.0 {ratio} [facility] Serum or plasma alkaline mayelin sphatase measurement (enzymatic activity/volume)Ordered By: James Redding on 01-13-2022 ALP [Catalytic activity/Vol] 95 U/L 32-92 [facility] Serum or plasma aspartate am inotransferase measurement (enzymatic activity/volume)Ordered By: James Redding on 01-13-2022 AST [Catalytic activity/Vol] 27 U/L 10-42 [facility] Serum or plasma total biliru bin measurement (mass/volume)Ordered By: James Redding on 01-13-2022 Bilirubin [Mass/Vol] 0.6 mg/dL 0.3-1.2 [facility] Specific gravity Auto test s trip (U) [Rel density]Ordered By: James Redding on 01-13-2022 Specific gravity (U) [Rel density] 1.029 1.001-1.030 [facility] Squamous epithelial cells de tection in urine sediment by light microscopyOrdered By: James Redding on 01-13-2022 Epithelial cells.squamous LM Ql (Urine sed) 1-2 [HPF] 0-1 [facility] Troponin I.cardiac [Mass/vol ume] in Serum or Plasma by High sensitivity methodOrdered By: James Redding on 01-13-2022 Troponin I.cardiac High sensitivity method [Mass/Vol] 4 pg/mL 0-15 [facility] Urine bacteria detection by automated methodOrdered By: James Redding on 2022 Bacteria Auto Ql (U) 2+ None Seen [facility] Urine clarity by refractomet ry automatedOrdered By: James Redding on 01-13-2022 Clarity Refractometry automated (U) Cloudy Clear [facility] Urine glucose measurement by automated test strip (mass/volume)Ordered By: James Redding on 01-13-2022 Glucose Auto test strip (U) [Mass/Vol] Normal mg/dL Normal [facility] Urine hemoglobin detection b y automated test stripOrdered By: James Redding on 01-13-2022 Hemoglobin Auto test strip Ql (U) Negative Negative [facility] Urine leukocyte esterase det ection by automated test stripOrdered By: James Redding on 01-13-2022 Leukocyte esterase Auto test strip Ql (U) 3+ Negative [facility] Urobilinogen Auto test strip (U) [Mass/Vol]Ordered By: James Redding on 01-13-2022 Urobilinogen (U) [Mass/Vol] Normal mg/dL Normal [facility] pH Auto test strip (U)Ordere d By: James Redding on 01-13-2022 pH (U) 5.0 [pH] 5.0-9.0 [facility] CARDIAC STRESS/REST INJE CTIONon 01-04-2021 [facility] CARDIAC STRESS/REST INJECTION Patient Name: KATHY WASHBURN STUDY: MYOCARDIAL PERFUSION STRESS TEST WITH LEXISCAN Performing facility: [facility], [address] [place] [address], [address], [address] Provider: Osmel Fernandes MD, FACC PCP: Dr. Lyndon Vicente Supervising provider: Osmel Fernandes MD, FACC INDICATION: Chest Pain; HTN Hyperlipidemia Diabetes Dyspnea HISTORY: Gender: F; Age: 80 y/o ; Height: 175.26 cm; Weight: [phone] kg. High Cholesterol; Diabetes; HTN; Chest Pain; SOB; Quit smoking Unknown years ago. COMPARISON: Previous nuclear testing completed MPX at [facility]. ACCESSION NUMBER(S): [id number]; [id number]; [id number] ORDERING CLINICIAN: MONET FERNANDES TECHNIQUE: ONE DAY [...] comparison. Electronically signed by: SARAH HODGES MD [facility] Vital Signs Date Time Vital Sign Value Performing Clinician Facility 08-12-2023 14:20-0500 Body height 180.34 cm [facility] Other [facility] Other 08-12-2023 14:20-0500 Body mass index (BMI) [Ratio] 32.21 kg/m2 [facility] Other [facility] Other 08-12-2023 14:20-0500 Body weight 104.78 kg [facility] Other [facility] Other 04-15-2023 14:40-0400 Body height 180.34 cm Ayanna Vicente Other [facility] Other 04-15-2023 14:40-0400 Body mass index (BMI) [Ratio] 33.61 kg/m2 Ayanna Earleabbi Other [facility] Other 04-15-2023 14:40-0400 Body temperature 98.8 [degF] Ayanna Earleabbi Other [facility] Other 04-15-2023 14:40-0400 Body weight 109.32 kg Yaanna Sakina Other [facility] Other 04-15-2023 14:40-0400 Diastolic blood pressure 82 mm[Hg] Ayanna Vicente Other [facility] Other 04-15-2023 14:40-0400 Respiratory rate 18 /min Ayanna Vicente Other [facility] Other 04-15-2023 14:40-0400 SaO2% (BldA) [Mass fraction] 93 % Ayanna Sakina Other [facility] Other 04-15-2023 14:40-0400 Systolic blood pressure 128 mm[Hg] Ayanna Earleabbi Other [facility] Other 02-25-2023 14:40-0400 Body height 180.34 cm Ayanna Vicente Other [facility] Other 02-25-2023 14:40-0400 Body mass index (BMI) [Ratio] 32.91 kg/m2 Ayanna Earleabbi Other [facility] Other 02-25-2023 14:40-0400 Body temperature 97.9 [degF] Ayanna Vicente Other [facility] Other 02-25-2023 14:40-0400 Body weight 107.05 kg Ayanna Vicente Other [facility] Other 02-25-2023 14:40-0400 Diastolic blood pressure 84 mm[Hg] Ayanna Vicente Other [facility] Other 02-25-2023 14:40-0400 Respiratory rate 18 /min Ayanna Vicente Other [facility] Other 02-25-2023 14:40-0400 SaO2% (BldA) [Mass fraction] 94 % Ayanna Vicente Other [facility] Other 02-25-2023 14:40-0400 Systolic blood pressure 122 mm[Hg] Ayanna Vicente Other [facility] Other 02-11-2023 11:35-0400 Blood Pressure Location [facility] 02-11-2023 11:35-0400 Diastolic blood pressure 67 mm[Hg] SUSAN [facility] 02-11-2023 11:35-0400 Heart rate 70 /min SUSAN [facility] 02-11-2023 11:35-0400 Systolic blood pressure 100 mm[Hg] SUSAN [facility] 02-07-2023 13:28-0400 Body height 177.8 cm Francine Lares MD Work Phone: [facility] 02-07-2023 13:28-0400 Body temperature 97.3 [degF] Francine Lares MD Work Phone: [facility] 02-07-2023 13:28-0400 Body weight 107.96 kg Francine Lares MD Work Phone: [facility] 02-07-2023 13:28-0400 Diastolic blood pressure 72 mm[Hg] Francine Lares MD Work Phone: [facility] 02-07-2023 13:28-0400 Heart rate 74 /min Francine Lares MD Work Phone: [facility] 02-07-2023 13:28-0400 Respiratory rate 20 /min Francine Lares MD Work Phone: [facility] 02-07-2023 13:28-0400 SaO2% (BldA) [Mass fraction] 93 % Francine Lares MD Work Phone: [facility] 02-07-2023 13:28-0400 Systolic blood pressure 122 mm[Hg] Francine Lares MD Work Phone: [facility] 07-19-2022 12:17-0500 Body height 177.8 cm Francine Lares MD Work Phone: [facility] 07-19-2022 12:17-0500 Body temperature 98.01 [degF] Francine Lares MD Work Phone: [facility] 07-19-2022 12:17-0500 Body weight 105.6 kg Francine Lares MD Work Phone: [facility] 07-19-2022 12:17-0500 Diastolic blood pressure 71 mm[Hg] Francine Lares MD Work Phone: [facility] 07-19-2022 12:17-0500 Heart rate 72 /min Francine Lares MD Work Phone: [facility] 07-19-2022 12:17-0500 Respiratory rate 16 /min Francine Lares MD Work Phone: [facility] 07-19-2022 12:17-0500 SaO2% (BldA) [Mass fraction] 93 % Francine Lares MD Work Phone: [facility] 07-19-2022 12:17-0500 Systolic blood pressure 111 mm[Hg] Francine Lares MD Work Phone: [facility] 04-18-2022 11:58-0400 Body height 177.8 cm Francine Lares MD Work Phone: [facility] 04-18-2022 11:58-0400 Body temperature 97.81 [degF] Francine Lares MD Work Phone: [facility] 04-18-2022 11:58-0400 Body weight 102.69 kg Francine Lares MD Work Phone: [facility] 04-18-2022 11:58-0400 Diastolic blood pressure 68 mm[Hg] Francine Lares MD Work Phone: [facility] 04-18-2022 11:58-0400 Heart rate 70 /min Francine Lares MD Work Phone: [facility] 04-18-2022 11:58-0400 Respiratory rate 16 /min Francine Lares MD Work Phone: [facility] 04-18-2022 11:58-0400 SaO2% (BldA) [Mass fraction] 99 % Francine Lares MD Work Phone: [facility] 04-18-2022 11:58-0400 Systolic blood pressure 127 mm[Hg] Francine Lares MD Work Phone: [facility] 04-04-2022 10:59-0400 Body height 177.8 cm Francine Lares MD Work Phone: [facility] 04-04-2022 10:59-0400 Body temperature 97.11 [degF] Francine Lares MD Work Phone: [facility] 04-04-2022 10:59-0400 Body weight 103.78 kg Francine Lares MD Work Phone: [facility] 04-04-2022 10:59-0400 Diastolic blood pressure 73 mm[Hg] Francine Lares MD Work Phone: [facility] 04-04-2022 10:59-0400 Heart rate 68 /min Francine Lares MD Work Phone: [facility] 04-04-2022 10:59-0400 Respiratory rate 16 /min Francine Lares MD Work Phone: [facility] 04-04-2022 10:59-0400 SaO2% (BldA) [Mass fraction] 95 % Francine Lares MD Work Phone: [facility] 04-04-2022 10:59-0400 Systolic blood pressure 138 mm[Hg] Francine Lares MD Work Phone: [facility] 04-02-2022 14:20-0400 Body height 180.34 cm Ayanna Vicente Other [facility] Other 04-02-2022 14:20-0400 Body mass index (BMI) [Ratio] 31.73 kg/m2 Ayanna Vicente Other [facility] Other 04-02-2022 14:20-0400 Body temperature 97.2 [degF] Ayanna Vicente Other [facility] Other 04-02-2022 14:20-0400 Body weight 103.19 kg Ayanna Vicente Other [facility] Other 04-02-2022 14:20-0400 Diastolic blood pressure 76 mm[Hg] Ayanna Vicente Other [facility] Other 04-02-2022 14:20-0400 Respiratory rate 18 /min Ayanna Vicente Other [facility] Other 04-02-2022 14:20-0400 SaO2% (BldA) [Mass fraction] 96 % Ayanna Vicente Other [facility] Other 04-02-2022 14:20-0400 Systolic blood pressure 120 mm[Hg] Ayanna Vicente Other [facility] Other 02-06-2022 14:20-0400 Body height 180.34 cm Ayanna Vicente Other [facility] Other 02-06-2022 14:20-0400 Body mass index (BMI) [Ratio] 31.94 kg/m2 Ayanna Vicente Other [facility] Other 02-06-2022 14:20-0400 Body temperature 97.4 [degF] Ayanna Vicente Other [facility] Other 02-06-2022 14:20-0400 Body weight 103.87 kg Ayanna Vicente Other [facility] Other 02-06-2022 14:20-0400 Diastolic blood pressure 68 mm[Hg] Ayanna Vicente Other [facility] Other 02-06-2022 14:20-0400 Respiratory rate 18 /min Ayanna Vicente Other [facility] Other 02-06-2022 14:20-0400 SaO2% (BldA) [Mass fraction] 93 % Ayanna Vicente Other [facility] Other 02-06-2022 14:20-0400 Systolic blood pressure 114 mm[Hg] Ayanna Vicente Other [facility] Other 01-26-2022 05:00-0400 Body temperature 97.6 [degF] DO Ayanna Girabbi Work Phone: [facility] 01-26-2022 05:00-0400 Diastolic blood pressure 77 mm[Hg] DO Ayanna Girvin Work Phone: [facility] 01-26-2022 05:00-0400 Heart rate 64 /min DO Ayanna Girvin Work Phone: [facility] 01-26-2022 05:00-0400 Respiratory rate 16 /min DO Ayanna Girvin Work Phone: [facility] 01-26-2022 05:00-0400 SaO2% (BldA) [Mass fraction] 94 % DO Ayanna Girabbi Work Phone: [facility] 01-26-2022 05:00-0400 Systolic blood pressure 116 mm[Hg] DO Ayanna Girabbi Work Phone: [facility] 01-23-2022 06:55-0400 Body height 177.8 cm DO Ayanna Girabbi Work Phone: [facility] 01-20-2022 06:00-0400 Body weight 109.6 kg DO Ayanna Girabbi Work Phone: [facility] 01-15-2022 17:00-0400 Body mass index (BMI) [Ratio] 33 kg/m2 DO Ayanna Girabbi Work Phone: [facility] 01-15-2022 15:40-0400 Body temperature 97.9 [degF] DO Ayanna Girabbi Work Phone: [facility] 01-15-2022 15:40-0400 Diastolic blood pressure 88 mm[Hg] DO Ayanna Girvin Work Phone: [facility] 01-15-2022 15:40-0400 Heart rate 72 /min DO Ayanna Girvin Work Phone: [facility] 01-15-2022 15:40-0400 Respiratory rate 18 /min DO Ayanna Girvin Work Phone: [facility] 01-15-2022 15:40-0400 SaO2% (BldA) [Mass fraction] 95 % DO Ayanna Vicente Work Phone: [facility] 01-15-2022 15:40-0400 Systolic blood pressure 128 mm[Hg] DO Ayanna Vicente Work Phone: [facility] 01-15-2022 05:11-0400 Body weight 107.9 kg DO Ayanna Vicente Work Phone: [facility] 01-13-2022 19:52-0400 Body height 177.8 cm DO Ayanna Vicente Work Phone: [facility] 01-13-2022 19:52-0400 Body mass index (BMI) [Ratio] 34.9 kg/m2 DO Ayanna Vicente Work Phone: [facility] 12-27-2021 11:10-0400 Body height 180.34 cm Ayanna Vicente Other [employer] [facility] Other 12-27-2021 11:10-0400 Body mass index (BMI) [Ratio] 33.12 kg/m2 Ayanna Vicente Other [facility] Other 12-27-2021 11:10-0400 Body temperature 97.3 [degF] Ayanna Vicente Other [facility] Other 12-27-2021 11:10-0400 Body weight 107.73 kg Ayanna Vicente Other [facility] Other 12-27-2021 11:10-0400 Diastolic blood pressure 82 mm[Hg] Ayanna Earleabbi Other [facility] Other 12-27-2021 11:10-0400 Respiratory rate 20 /min Ayanna Vicente Other [facility] Other 12-27-2021 11:10-0400 SaO2% (BldA) [Mass fraction] 93 % Ayanna Vicente Other [facility] Other 12-27-2021 11:10-0400 Systolic blood pressure 124 mm[Hg] Ayanna Vicente Other [facility] Other 12-17-2021 12:00-0400 Body height 180.34 cm Ayanna Clevelandnilton Other [facility] Other 12-17-2021 12:00-0400 Body mass index (BMI) [Ratio] 32.21 kg/m2 Ayanna [place] Other [facility] Other 12-17-2021 12:00-0400 Body weight 104.78 kg Ayanna [place] Other [facility] Other 12-17-2021 12:00-0400 Diastolic blood pressure 56 mm[Hg] Ayanna [place] Other [facility] Other 12-17-2021 12:00-0400 Systolic blood pressure 98 mm[Hg] Ayanna Milner Other [facility] Other 04-04-2021 14:20-0400 Body height 180.34 cm Ayanna Vicente Other [facility] Other 04-04-2021 14:20-0400 Body mass index (BMI) [Ratio] 32.35 kg/m2 Ayanna Vicente Other [facility] Other 04-04-2021 14:20-0400 Body temperature 97.7 [degF] Ayanna Vicente Other [facility] Other 04-04-2021 14:20-0400 Body weight 105.24 kg Ayanna Vicente Other [facility] Other 04-04-2021 14:20-0400 Diastolic blood pressure 70 mm[Hg] Ayanna Vicente Other [facility] Other 04-04-2021 14:20-0400 Respiratory rate 18 /min Ayanna Vicente Other [facility] Other 04-04-2021 14:20-0400 SaO2% (BldA) [Mass fraction] 97 % Ayanna Vicente Other [facility] Other 04-04-2021 14:20-0400 Systolic blood pressure 114 mm[Hg] Ayanna Vicente Other [facility] Other Encounters Encounter Date Encounter Type Care Provider Facility Start: 02-24-2024 ambulatory SUSAN Neil ty:[facility] Start: 08-28-2023 End: 08-28-2023 ambulatory JAMES SMITH Not Available Start: 08-28-2023 Bamboo flowsheet James reis DPM Work Phone: [facility] Start: 08-28-2023 Bamboo flowsheet James reis DPM Work Phone: [facility] Start: 08-28-2023 End: 08-28-2023 Patient encounter procedure James Smith DPM Work Phone: [facility] Comment on above: Onychomycosis (Prima ry Dx); 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); Pain in both feet Start: 08-25-2023 End: 08-26-2023 ambulatory Som Azul MD Facility:[facility] Start: 08-18-2023 End: 08-18-2023 ambulatory Homa Mckeon Other [facility] Other Start: 08-18-2023 Telephone encounter Homa Mckeon [facility] Start: 08-12-2023 End: 08-12-2023 ambulatory Homa Mckeon Other [facility] Other Start: 08-12-2023 Office outpatient ne w 45 minutes Homa Mike [facility] Start: 08-08-2023 End: 08-08-2023 ambulatory FRANCINE GONZALESJAYDONU Facility:[facility] Start: 07-16-2023 End: 07-16-2023 ambulatory Ayanna Vicente Other [facility] Other Start: 07-16-2023 Telephone encounter Ayanna Vicente [facility] Start: 05-12-2023 End: 05-12-2023 ambulatory Junior Butterfield Other [facility] Other Start: 05-12-2023 Telephone encounter Junior Butterfield [facility] Start: 05-07-2023 End: 05-07-2023 ambulatory Ayanna Vicente Other [facility] Other Start: 05-07-2023 Telephone encounter Ayanna Vicente [facility] Start: 04-29-2023 End: 04-29-2023 ambulatory Ayanna Vicente Other [facility] Other Start: 04-29-2023 Telephone encounter Ayanna Vicente [facility] [place] Start: 04-25-2023 End: 04-25-2023 ambulatory Ayanna Vicente Other [facility] Other Start: 04-25-2023 Telephone encounter Ayanna Vicente [facility] [place] Start: 04-24-2023 End: 04-24-2023 ambulatory Ayanna Vicente Facility:[facility] Start: 04-24-2023 End: 04-24-2023 ambulatory DO Ayanna Vicente Work Phone: [facility] Work Phone: Start: 04-24-2023 End: 04-24-2023 Patient encounter procedure DO Ayanna Vicente Work Phone: [facility] Work Phone: Start: 04-22-2023 End: 04-22-2023 ambulatory Ayanna Vicente Other [facility] Other Start: 04-22-2023 Telephone encounter Ayanna Earleabbi [facility] [place] Start: 04-15-2023 End: 04-15-2023 ambulatory Ayanna Sakina Other [facility] Other Start: 04-15-2023 Office outpatient vi sit 25 minutes Ayanna Vicente [facility] [place] Start: 04-14-2023 End: 04-14-2023 ambulatory Ayanna Vicente Other [facility] Other Start: 04-14-2023 Telephone encounter Ayanna Vicente [facility] [place] Start: 04-09-2023 End: 04-09-2023 ambulatory Ayanna Earleabbi Facility:[facility] Start: 04-09-2023 End: 04-09-2023 ambulatory DO Ayanna Vicente Work Phone: [facility] Work Phone: Start: 04-09-2023 End: 04-09-2023 Patient encounter procedure DO Ayanna Vicente Work Phone: [facility] [place] Work Phone: Start: 02-25-2023 End: 02-25-2023 ambulatory Ayanna Vicente Other [facility] Other Start: 02-25-2023 Office outpatient vi sit 15 minutes Ayanna Vicente [facility] [place] Start: 02-11-2023 End: 02-12-2023 ambulatory SUSAN RANDOLPH Facility:[facility] Start: 02-11-2023 End: 02-11-2023 Patient encounter procedure SUSAN RANDOLPH [facility] [place] Start: 02-07-2023 End: 02-07-2023 ambulatory FRANCINE LARES Facility:[facility] Start: 02-07-2023 End: 02-07-2023 ambulatory Francine Lares MD Work Phone: Hematology/Oncology Comment on above: CLL (chronic lymphoc ytic leukemia) (HCC) (Primary Dx) Start: 02-07-2023 End: 02-07-2023 Patient encounter procedure Francine Lares MD Work Phone: [facility] Start: 01-16-2023 End: 01-16-2023 ambulatory Ayanna Vicente Other [facility] Other Start: 01-16-2023 Telephone encounter Ayanna Vicente [facility] Start: 01-15-2023 End: 01-15-2023 ambulatory Ayanna Vicente Other [facility] Other Start: 01-15-2023 Telephone encounter Ayanna Vicente [facility] Start: 01-07-2023 End: 01-07-2023 ambulatory Ayanna Vicente Other [facility] Other Start: 01-07-2023 Telephone encounter Ayanna Vicente [facility] Start: 01-06-2023 End: 01-06-2023 ambulatory Ayanna Vicente Other [facility] Other Start: 01-06-2023 Telephone encounter [facility] Start: 11-29-[address] AYANNA VICENTE Facilit y:H1 Start: 10-16-2022 End: 10-16-2022 ambulatory Ayanna Vicente Other [facility] Other Start: 10-16-2022 Telephone encounter Ayanna Vicente [facility] [place] Start: 10-02-2022 End: 10-02-2022 ambulatory Ayanna Vicente Other [facility] Other Start: 10-02-2022 Telephone encounter Ayanna Vicente [facility] [place] Start: 09-30-2022 End: 09-30-2022 ambulatory Ayanna Vicente Facility:[facility] Start: 09-30-2022 End: 09-30-2022 ambulatory DO Ayanna Sakina Work Phone: [facility] Work Phone: Start: 09-30-2022 End: 09-30-2022 Patient encounter procedure DO Ayanna Sakina Work Phone: [facility] [place] Work Phone: Start: 09-24-2022 End: 09-24-2022 ambulatory Sharda Sheth Facility:[facility] Start: 09-24-2022 End: 09-24-2022 ambulatory DO Ayanna Sakina Work Phone: [facility] Work Phone: Start: 09-24-2022 End: 09-24-2022 Patient encounter procedure DO Ayanna Sakina Work Phone: [facility] [address] Work Phone: Start: 09-02-2022 End: 09-02-2022 ambulatory Ayanna Vicente Other [facility] Other Start: 09-02-2022 Telephone encounter Ayanna Vicente [facility] [place] Start: 08-29-2022 End: 08-29-2022 ambulatory Francine Janetangie Facility:[facility] Start: 08-29-2022 End: 08-29-2022 Patient encounter procedure DO Ayanna Vicente Work Phone: [facility] Work Phone: Start: 08-29-2022 End: 08-29-2022 ambulatory DO Ayanna Vicente Work Phone: [facility] Work Phone: Start: 08-29-2022 End: 08-29-2022 Patient encounter procedure DO Ayanna Vicente Work Phone: [facility] [address] Work Phone: Start: 08-12-2022 End: 08-12-2022 ambulatory Ayanna Vicente Facility:[facility] Start: 08-12-2022 End: 08-12-2022 ambulatory DO Ayanna Vicente Work Phone: [facility] Work Phone: Start: 08-12-2022 End: 08-12-2022 Patient encounter procedure DO Ayanna Vicente Work Phone: [facility] [place] Work Phone: Start: 08-05-2022 End: 08-05-2022 ambulatory Ayanna Vicente Other [facility] Other Start: 08-05-2022 Telephone encounter Ayanna Vicente [facility] [place] Start: 08-02-2022 ambulatory Ayanna Vel Vicente Faci lity:[id number] Start: 07-24-2022 End: 07-24-2022 ambulatory Ayanna Vicente Facility:[facility] Start: 07-24-2022 End: 07-24-2022 ambulatory DO Ayanna Vicente Work Phone: [facility] Work Phone: Start: 07-24-2022 End: 07-24-2022 Patient encounter procedure DO Ayanna Vicente Work Phone: [facility]-Electrodiagnostics Work Phone: Start: 07-19-2022 Telephone encounter [...] encounter procedure Francine Lares MD Work Phone: [place] Start: 05-31-2022 End: 05-31-2022 ambulatory Ayanna Vicente Other [facility] Other Start: 05-31-2022 Telephone encounter Ayanna Vicente [facility] [place] Start: 05-14-2022 End: 05-14-2022 ambulatory Ayanna Vicente Other [facility] Other Start: 05-14-2022 Telephone encounter Ayanna Vicente [facility] [place] Start: 04-24-2022 End: 04-24-2022 ambulatory Ayanna Vicente Other [facility] Other Start: 04-24-2022 Telephone encounter Ayanna Vicente [facility] [place] Start: 04-23-2022 Telephone encounter Ayanna Vicente [facility] [place] Start: 04-23-2022 End: 04-23-2022 ambulatory DO Ayanna Vicente Work Phone: [facility] Other Start: 04-23-2022 End: 04-23-2022 Patient encounter procedure DO Ayanna Vicente Work Phone: [facility] [place] Start: 04-18-2022 End: 04-18-2022 ambulatory Francine Lares MD Work Phone: Hematology/Oncology Comment on above: CLL (chronic lymphoc ytic leukemia) (HCC) (Primary Dx) Start: 04-18-2022 End: 04-18-2022 Patient encounter procedure Francine Lares MD Work Phone: [facility] Start: 04-10-2022 End: 04-10-2022 ambulatory Ayanna Vicente Other [facility] Other Start: 04-10-2022 Telephone encounter Ayanna Vicente [facility] [place] Start: 04-05-2022 Telephone encounter Niurka Hood Hematology/Oncology Comment on above: Care Coordination (R esults) Start: 04-04-2022 End: 04-04-2022 ambulatory Francine Lares MD Work Phone: Hematology/Oncology Comment on above: Lymphocytosis (Prima ry Dx) Start: 04-04-2022 End: 04-04-2022 Patient encounter procedure Francine Lares MD Work Phone: [facility] Start: 04-02-2022 End: 04-02-2022 ambulatory Ayanna Vicente Other [facility] Other Start: 04-02-2022 Office outpatient vi sit 40 minutes Ayanna Vicente [facility] [place] Start: 04-01-2022 End: 04-01-2022 Patient encounter procedure DO Ayanna Vicente Work Phone: [facility] [place] Start: 03-26-2022 End: 03-26-2022 ambulatory Ayanna Vicente Other [facility] Other Start: 03-26-2022 Telephone encounter Ayanna Vicente [facility] [place] Start: 03-19-2022 End: 03-19-2022 ambulatory Ayanna Vicente Other [facility] Other Start: 03-19-2022 Telephone encounter Ayanna Vicente [facility] [place] Start: 03-13-2022 End: 03-13-2022 ambulatory Ayanna Vicente Other [facility] Other Start: 03-13-2022 Telephone encounter Ayanna Vicente [facility] [place] Start: 03-08-2022 End: 03-08-2022 ambulatory Ayanna Vicente Other [facility] Other Start: 03-08-2022 Telephone encounter Ayanna Vicente [facility] [place] Start: 03-07-2022 End: 03-07-2022 ambulatory Aaynna Vicente Other [facility] Other Start: 03-07-2022 Telephone encounter Ayanna Vicente [facility] [place] Start: 02-28-2022 End: 02-28-2022 ambulatory Ayanna Vicente Other [facility] Other Start: 02-28-2022 Telephone encounter Ayanna Vicente [facility] [place] Start: 02-21-2022 End: 02-21-2022 ambulatory Ayanna Vicente Other [facility] Other Start: 02-21-2022 Telephone encounter Ayanna Vicente [facility] [place] Start: 02-18-2022 End: 02-18-2022 ambulatory Ayanna Vicente Other [facility] Other Start: 02-18-2022 Telephone encounter Ayanna Vicente [facility] [place] Start: 02-15-2022 End: 02-15-2022 ambulatory Ayanna Vicente Other [facility] Other Start: 02-15-2022 Telephone encounter Ayanna Vicente [facility] [place] Start: 02-11-2022 End: 02-11-2022 ambulatory Ayanna Vicente Other [facility] Other Start: 02-11-2022 Telephone encounter Ayanna Vicente [facility] [place] Start: 02-06-2022 End: 02-06-2022 ambulatory Ayanna Vicente Other [facility] Other Start: 02-06-2022 Office outpatient vi sit 25 minutes Ayanna Vicente [facility] [place] Start: 01-31-2022 End: 01-31-2022 ambulatory Ayanna Vicente Other [facility] Other Start: 01-31-2022 Telephone encounter Ayanna Vicente [facility] [place] Start: 01-15-2022 End: 01-26-2022 Evaluation and management of inpatient DO Ayanna Vicente Work Phone: [facility] Start: 01-13-2022 End: 01-15-2022 Evaluation and management of inpatient DO Ayanna Earleabbi Work Phone: [facility] [place] [facility] Start: 01-07-2022 End: 01-07-2022 ambulatory Ayanna Vicente Other [facility] Other Start: 01-07-2022 Telephone encounter Ayanna Vicente [facility] [place] Start: 12-27-2021 End: 12-27-2021 ambulatory Ayanna Vicente Other [facility] Other Start: 12-27-2021 Office outpatient vi sit 15 minutes Ayanna Vicente [facility] [place] Start: 12-19-2021 End: 12-19-2021 ambulatory Ayanna Vicente Other [facility] Other Start: 12-19-2021 Telephone encounter Ayanna Vicente [facility] [place] Start: 12-18-2021 End: 12-18-2021 ambulatory Ayanna Milner Other [facility] Other Start: 12-18-2021 Telephone encounter Ayanna Milner [facility] Start: 12-17-2021 End: 12-17-2021 ambulatory Ayanna Milner Other [facility] Other Start: 12-17-2021 Office outpatient ne w 45 minutes Ayanna Milner [facility] Start: 11-12-2021 End: 11-12-2021 ambulatory Ayanna Vicente Other [facility] Other Start: 11-12-2021 Telephone encounter Ayanna Vicente [facility] [place] Start: 10-02-2021 End: 10-02-2021 ambulatory Ayanna Vicente Other [facility] Other Start: 10-02-2021 Telephone encounter Ayanna Vicente [facility] [place] Start: 10-01-2021 End: 10-01-2021 ambulatory Ayanna Vicente Other [facility] Other Start: 10-01-2021 Telephone encounter Ayanna Vicente [facility] [place] Start: 09-17-2021 End: 09-17-2021 ambulatory Ayanna Vicente Other [facility] Other Start: 09-17-2021 Telephone encounter Ayanna Vicente [facility] [place] Start: 09-13-2021 End: 09-13-2021 ambulatory Ayanna Vicente Other [facility] Other Start: 09-13-2021 Telephone encounter Ayanna Vicente [facility] [place] Start: 09-12-2021 End: 09-12-2021 ambulatory Ayanna Vicente Other [facility] Other Start: 09-12-2021 Telephone encounter Ayanna Vicente [facility] [place] Start: 07-18-2021 End: 07-18-2021 ambulatory Ayanna Vicente Other [facility] Other Start: 07-18-2021 Telephone encounter Ayanna Vicente [facility] [place] Start: 06-18-2021 End: 06-18-2021 ambulatory Ayanna Vicente Other [facility] Other Start: 06-18-2021 Telephone encounter Ayanna Vicente [facility] [place] Start: 04-24-2021 Telephone encounter Ayanna Earleabbi [facility] Start: 04-04-2021 Office outpatient vi sit 25 minutes Ayanna Earleabbi [facility] Start: 02-08-2021 End: 02-08-2021 Orders Only Dale [...] Author Start: 02-07-2026 DIABETES SCREEN DIABETES SCREEN [facility] Start: 07-19-2025 DIABETES SCREEN DIABETES SCREEN [facility] Start: 11-17-2023 End: 11-17-2023 Patient encounter procedure 11/17/2023 1:15 PM EDT Procedure Visit [facility] [address] [place] [id number] James Smith DPM [address] [place] [address] [facility] Start: 08-10-2023 End: 10-10-2023 CBC W Auto Differential panel - Blood CBC + DIFF Lab Routine CLL (chronic lymphocytic leukemia) (HCC) Expected: 08/10/2023 (Approximate), Expires: 10/10/2023 [facility] Work Phone: Comment on above: Expected: 08/10/2023 (Approximate), Expires: 10/10/2023 Start: 08-10-2023 End: 10-10-2023 Comprehensive metabolic 2000 panel - Serum or Plasma COMP METABOLIC PANEL Lab Routine CLL (chronic lymphocytic leukemia) (HCC) Expected: 08/10/2023 (Approximate), Expires: 10/10/2023 [facility] Work Phone: Comment on above: Expected: 08/10/2023 (Approximate), Expires: 10/10/2023 Start: 03-14-2023 Influenza vaccination [facility] Start: 01-16-2023 End: 03-18-2023 CBC W Auto Differential panel - Blood CBC + DIFF Lab Routine CLL (chronic lymphocytic leukemia) (HCC) Expected: 01/16/2023 (Approximate), Expires: 03/18/2023 [facility] Work Phone: Comment on above: Expected: 01/16/2023 (Approximate), Expires: 03/18/2023 Start: 01-16-2023 End: 03-18-2023 Comprehensive metabolic 2000 panel - Serum or Plasma COMP METABOLIC PANEL Lab Routine CLL (chronic lymphocytic leukemia) (HCC) Expected: 01/16/2023 (Approximate), Expires: 03/18/2023 [facility] Work Phone: Comment on above: Expected: 01/16/2023 (Approximate), Expires: 03/18/2023 Start: 08-19-2022 COVID-19 VACCINE (5 - Pfizer series) COVID-19 VACCINE (5 - Pfizer series) [facility] Start: 07-26-2022 End: 08-18-2023 Us breast uni real time with image limited US BREAST LTD LT Radiology Routine Axillary adenopathy Other signs and symptoms in breast Expected: 07/26/2022, Expires: 08/18/2023 [facility] Work Phone: Comment on above: Expected: 07/26/2022 , Expires: 08/18/2023 Start: 07-19-2022 End: 09-18-2022 CBC W Auto Differential panel - Blood CBC + DIFF Lab Routine CLL (chronic lymphocytic leukemia) (HCC) Expected: 07/19/2022 (Approximate), Expires: 09/18/2022 [facility] Work Phone: Comment on above: Expected: 07/19/2022 (Approximate), Expires: 09/18/2022 Start: 07-19-2022 End: 09-18-2022 Comprehensive metabolic 2000 panel - Serum or Plasma COMP METABOLIC PANEL Lab Routine CLL (chronic lymphocytic leukemia) (HCC) Expected: 07/19/2022 (Approximate), Expires: 09/18/2022 [facility] Work Phone: Comment on above: Expected: 07/19/2022 (Approximate), Expires: 09/18/2022 Start: 07-19-2022 End: 09-18-2022 Lactate dehydrogenase [Enzymatic activity/volume] in Serum or Plasma LD LACTATE DEHYDRO Lab Routine CLL (chronic lymphocytic leukemia) (HCC) Expected: 07/19/2022 (Approximate), Expires: 09/18/2022 [facility] Work Phone: Comment on above: Expected: 07/19/2022 (Approximate), Expires: 09/18/2022 Start: 07-14-2022 ADVANCE DIRECTIVE DISCUSSION ADVANCE DIRECTIVE DISCUSSION [facility] Start: 07-14-2022 DEPRESSION ASSESSMENT DEPRESSION ASS ESSMENT [facility] Start: 04-04-2022 End: 06-04-2022 [id number] [Mass/volume] in Serum or Plasma [facility] Work Phone: Comment on above: Expected: 04/04/2022 , Expires: 06/04/2022 Start: 04-04-2022 End: 06-04-2022 Chronic hepatitis differentiation between hepatitis B and C virus panel - Serum or Plasma [facility] Work Phone: Comment on above: Expected: 04/04/2022 , Expires: 06/04/2022 Start: 04-04-2022 End: 06-04-2022 FLOW CYTOMETRY PERIPHERAL BLOOD LEUK/LYMPH (FCLEUK) [facility] Work Phone: Comment on above: Expected: 04/04/2022 , Expires: 06/04/2022 Start: 03-14-2022 Influenza vaccination INFLUENZA (#1) [facility] Start: 01-24-2022 [facility] Start: 01-21-2022 Consultation [facility] Start: 01-15-2022 Hospital admission [facility] Start: 01-15-2022 Referral to clinical needle loom setter [facility] Start: 01-15-2022 [facility] Work Phone: Start: 01-13-2022 Hospital admission [facility] Work Phone: Start: 07-27-2021 COVID-19 VACCINE (4 - Booster for Pfizer series) COVID-19 VACCINE (4 - Booster for Pfizer series) [facility] Start: 07-14-2021 ADVANCE DIRECTIVE DISCUSSION ADVANCE DIRECTIVE DISCUSSION [facility] Start: 07-14-2021 DEPRESSION ASSESSMENT DEPRESSION ASS ESSMENT [facility] Start: 03-14-2021 Influenza vaccination INFLUENZA (#1) [facility] Start: 2007 ADVANCE DIRECTIVE DISCUSSION ADVANCE DIRECTIVE DISCUSSION [facility] Start: 2007 BONE DENSITY BONE DENSITY [facility] Start: 2007 PNEUMOCOCCAL: 65+ (1 - PCV) PNEUMOCOCCAL: 65+ (1 - PCV) [facility] Start: 2007 PNEUMOVAX AGE 65 AND OVER WITH 5YR LOOKBACK (#1) PNEUMOVAX AGE 65 AND OVER WITH 5YR LOOKBACK (#1) [facility] Start: 1992 Screening for malign ant neoplasm of colon [facility] Start: 1992 SHINGRIX VACCINE (1 of 2) RODRIGUEZ GRIX VACCINE (1 of 2) [facility] Start: 1987 DIABETES SCREEN DIABETES SCREEN [facility] Start: 1961 SHINGRIX VACCINE (1 of 2) RODRIGUEZ GRIX VACCINE (1 of 2) [facility] Start: 1961 Urine microalbumin profile DTAP,TDAP,TD (1 - Tdap) [facility] Start: 1960 HEPATITIS C SCREENING HEPATITIS [facility] Start: 1954 Adult depression screening assessment DEPRESSION SCREENING [facility] Start: 1954 COVID-19 VACCINE (1) COVID-19 VACCIN E (1) [facility] Start: 1948 PNEUMOCOCCAL: 65+ (1 - PCV) PNEUMOCOCCAL: 65+ (1 - PCV) [facility] CBC W Auto Different ial panel - Blood CBC + DIFF Lab Routine Lymphocytosis 04/04/2022 11:00 AM EDT [facility] Work Phone: FLOW CYTOMETRY PERIP HERAL BLOOD LEUK/LYMPH (FCLEUK) FLOW CYTOMETRY PERIPHERAL BLOOD LEUK/LYMPH (FCLEUK) Lab Routine Lymphocytosis 04/04/2022 11:02 AM EDT [facility] Work Phone: FLOW SLIDE FLOW SLIDE Lab R outine Lymphocytosis 04/04/2022 11:02 AM EDT [facility] Work Phone: Hepatitis B virus co re Ab [Presence] in Serum HEP B CORE AB TOTAL Lab Routine Lymphocytosis 04/04/2022 11:00 AM EDT [facility] Work Phone: Hepatitis B virus noe rface Ab [Presence] in Serum HEP B SURF AB QUAL Lab Routine Lymphocytosis 04/04/2022 11:00 AM EDT [facility] Work Phone: Hepatitis B virus noe rface Ab [Presence] in Serum by Immunoassay HEP B SURF AG SCRN Lab Routine Lymphocytosis 04/04/2022 11:00 AM EDT [facility] Work Phone: Hepatitis C virus Ab [Presence] in Serum HEP C AB IA W/CONF SCRN Lab Routine [facility] End: 08-18-2023 SONYA SCREENING W NEYDA SONYA SCREENING W NEYDA Radiology Routine Encounter for screening mammogram for malignant neoplasm of breast 1 Occurrences starting 07/19/2022 until 08/18/2023 [facility] Work Phone: Comment on above: 1 Occurrences starti ng 07/19/2022 until 08/18/2023 Patient Education Wrist Fracture (DC) [facility] Work Phone: Patient referral [facility] Work Phone: End: 03-10-2022 Radiologic exam knee complete 4/more views XR KNEE GENERAL 4V AP BOTH/PA BOTH/LAT/MERC BILAT Radiology Routine Pain in both knees, unspecified chronicity 1 Occurrences starting 02/08/2021 until 03/10/2022 [facility] Comment on above: 1 Occurrences starti ng 02/08/2021 until 03/10/2022 End: 03-10-2022 Radiologic examination pelvis 1/2 views XR PELVIS 1V AP Radiology Routine Pain in both knees, unspecified chronicity 1 Occurrences starting 02/08/2021 until 03/10/2022 [facility] Comment on above: 1 Occurrences starti ng 02/08/2021 until 03/10/2022 Serum fructosamine measurement [facility] Work Phone: End: 08-18-2023 XR RIBS/CHEST 3V AP RIB/OBLS/CXR LEFT XR RIBS/CHEST 3V AP RIB/OBLS/CXR LEFT Radiology Routine Rib pain 1 Occurrences starting 07/19/2022 until 08/18/2023 [facility] Work Phone: Comment on above: 1 Occurrences starti ng 07/19/2022 until 08/18/2023 [facility] Immunizations Immunization Date Immunization Notes Care Provider Fa myrnaty 04-15-2023 influenza, high dose seasonal, preservative-free Ayanna Vicente Other [facility] Other 04-15-2023 influenza virus vaccine, unspecified formulation James Smith DPM Work Phone: [facility] 04-22-2022 pneumococcal polysaccharide vaccine, 23 valent Ayanna Vicente Other [facility] Other 01-13-2022 tetanus toxoid, redu paola diphtheria toxoid, and acellular pertussis vaccine, adsorbed Ayanna Vicente Other [facility] 06-01-2021 COVID-19 Vaccine Pfi zer - Documentation Purposes Only Ayanna Vicente Other [facility] [facility] Other 04-25-2021 influenza virus vaccine, unspecified formulation SUSAN RANDOLPH [facility] 04-04-2021 influenza, high dose seasonal, preservative-free Ayanna Vicente Other [facility] [facility] Other 04-04-2021 Influenza, High-dose Seasonal, Quadrivalent, Preservative Free James Smith DPM Work Phone: [facility] 09-01-2020 COVID-19 Vaccine Pfi zer - Documentation Purposes Only Ayanna Vicente Other [facility] Other 09-01-2020 SARS-CoV-2 (COVID-19 ) mRNA-1273 vaccine SUSAN RANDOLPH [facility] 08-11-2020 COVID-19 Vaccine Pfi zer - Documentation Purposes Only Ayanna Vicente Other [facility] Other 08-11-2020 SARS-CoV-2 (COVID-19 ) mRNA-1273 vaccine SUSAN RANDOLPH [facility] 03-14-2020 influenza virus vaccine, unspecified formulation SUSAN RANDOLPH [facility] 04-03-2019 pneumococcal polysaccharide vaccine, 23 valent Ayanna Vicente Other [facility] Other 04-03-2019 influenza, seasonal, injectable Ayanna Vicente Other [facility] Other 05-25-2018 influenza, seasonal, injectable Ayanna Vicente Other [facility] Other 04-22-2018 Kenalog -40 mg Ayanna Vicente Other [facility] Other Payers Date Payer Category Payer Unknown [id number] 2022 Self-pay [id number] 2020 Private Health Insurance [facility] AARP SUPPLEMENT [id number] 2020-Present Indemnity [id number] 2020 Private Health Insurance [facility] AAR SUPPLEMENT [id number] 2020-Present [phone] [id number] [place] [address] Indemnity [id number] 2007 Medicare MEDICARE MEDICAR E A AND B [id number] 2007-Present [place] [id number] 2007 Medicare [id number] 1959 Medicare [id number] 1959 Unknown [id number] 1942 Unknown [id number] 1942 Unknown [id number] 1942 Unknown [id number] 1942 Unknown [id number] 1942 Unknown [id number] 1942 Unknown [id number] Unknown [id number] Unknown [id number] Unknown [id number] Unknown [id number] Unknown [id number] Unknown [id number] Unknown [id number] Unknown [id number] Social History Date Type Detail Facility Start: 02-20-2004 End: 01-21-2022 Tobacco smoking status WIIS Former smoker [facility] Comment on above: quit smoking in 1984 End: 07-14-1999 History of tobacco use Current smoker [facility] Work Phone: Start: 02-20-2004 Alcohol intake Not Asked [facility] Start: 1940 Sex Assigned At Not on file C [facility] Start: 02-07-2023 End: 08-28-2023 Sex Assigned At [facility] Start: 1940 Sex Assigned At Female F [facility] End: 07-14-1999 History of tobacco use Cigarette Smoker [facility] Start: 04-04-2022 End: 08-28-2023 Cigarettes smoked current (pack per day) - Reported 1.5 [facility] Start: 04-04-2022 Tobacco use and exposure Smokeless tobacco non-user [facility] Start: 04-04-2022 End: 02-07-2023 Alcohol intake Ex-drinker (finding) [facility] Start: 03-25-2022 End: 04-18-2022 Exposure to SARS-CoV-2 (event) Not sure [facility] Adult Depression Screening Assessment 0 [facility] Start: 12-07-2022 Tobacco smoking stat us WIIS Never smoked tobacco [facility] Start: 08-21-2023 End: 08-28-2023 Alcohol intake Current drinker of alcohol (finding) [facility] Start: 12-07-2022 Alcohol Comment Alcohol: 1-2 d rinks occasionally. Caffeine: 3-4 cups/day coffee [facility] Medical Equipment Procedure Code Equipment Code [...] ALLOGRAFT FUSELO X LUMBAR FDA Start: 03-24-2017 [place] One Level Deformity FDA Start: 03-24-2017 CANCELLOUS [...] ALLOGRAFT FUSELO X LUMBAR FDA Start: 03-24-2017 [place] One Level Deformity FDA Start: 03-24-2017 CANCELLOUS [...] ALLOGRAFT FUSELO X LUMBAR FDA Start: 03-24-2017 [place] One Level Deformity FDA Start: 03-24-2017 CANCELLOUS [...] ALLOGRAFT FUSELO X LUMBAR FDA Start: 03-24-2017 [place] One Level Deformity FDA Start: 03-24-2017 CANCELLOUS [...] ALLOGRAFT FUSELO X LUMBAR FDA Start: 03-24-2017 [place] One Level Deformity FDA Start: 03-24-2017 CANCELLOUS [...] ALLOGRAFT FUSELO X LUMBAR FDA Start: 03-24-2017 [place] One Level Deformity FDA Start: 03-24-2017 CANCELLOUS [...] ALLOGRAFT FUSELO X LUMBAR FDA Start: 03-24-2017 [place] [employer] Deformity FDA Start: 03-24-2017 CANCELLOUS [...] ALLOGRAFT FUSELO X LUMBAR FDA Start: 03-24-2017 [place] [employer] Level Deformity FDA Start: 03-24-2017 CANCELLOUS [...] ALLOGRAFT FUSELO X LUMBAR FDA Start: 03-24-2017 [place] One Level Deformity FDA Start: 03-24-2017 CANCELLOUS [...] 02-11-2023 Functional Status N/A [facility] 01-26-2022 Functional status Patient is Pro gressing Toward Baseline [facility] Work Phone: Mental Status Date Assessment Result Facility 01-26-2022 Cognitive function Cognitive Sta tus Patient at Baseline [facility] Work Phone: Clinical Notes 04-04-2021 to [...] 150 Interested in diabetic shoes/inserts Dispensed Kandy [id number] in Purple, size 11 M on 04/11/22. [...] areas were noted. documented in this encounter [facility] 08-12-2023 Evaluation note Encounter Date Diagnosis [...] sacroiliac steroidal injection. Refer the patient to [facility] for aqua therapy. Discuss with primary care physician, Dr. Vicente, about prescribing a steroid prednisone for temporary relief during the patient's cruise, in the event unable to see painmanagment before vacation. Order a lidocaine patch for the patient to use on the sacroiliac and hip area for pain relief.Recommend labv-sgu-mnmhuqk Thermacare or heat patches to use alongside the lidocaine patch. 3. 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 Monitor the degeneration and consider a preventative approach. Encourage the patient to take Tylenol arthritis for overall help. 4. Bone density: - Plan: Dexa scan within normal limits. Jul, Pain in left hip (ICD-10 - M25.552) Jul, Sacroiliac inflammation (ICD-10 - M46.1) Jul, Cervical pain (ICD-10 - M54.2) Jul, DDD (degenerative disc disease), lumbar (ICD-10 - M51.36) [facility] Other 01-26-2024 NoteHNO ID: [id number] Author: FRANCINE LARES MD Service: ? Author Type: Physician Type: Progress Notes Filed: 08/08/2023 14:59 Note Text: PATIENT NAME: aKthy Washburn [facility] NO.: [id number] ATTENDING PHYSICIAN: Francine Lares MD DATE OF [...] 15.0 % Preliminary Platele (more content not included)...[facility]01-03-2024 Evaluation note* Encounter Date Diagnosis Assessment Notes [...] She will continue to monitor her memory. [facility] Other 10-03-2023 Evaluation note* Encounter Date Diagnosis [...] s he has about immunizations were answered. [facility] Other 10-02-2023 Evaluation note* Encounter Date Diagnosis Assessment Notes Treatment Notes Treatment Clinical Notes Apr, Insomnia (ICD-10 - G47.00) Apr, Neuropathy (ICD-10 - G62.9) [facility] Other 08-15-2023 Evaluation note* Encounter Date Diagnosis [...] pain (ICD-10 - M54.50) The fall has saen her back and caused it to flare [...] Feb, Lumbar disc disease (ICD-10 - M51.9) [facility] Other 08-01-2023 Hospital Discharge instructions Patient Education [...] your health care provider. General instructions Take ztdo-bbf-sgnmvuw and prescription medicines only as told by [...] Document Reviewed: 03/19/2021 Marisela Patient Education 2022 [employer]. Follow Up Care 01/23/2023 15:26:59 With:JAX BECKMAN, SUSAN Miller, URL Address: [place] [address] When: Unknown [facility] [employer] 07-28-2023 NoteHNO ID: [id number] Author: Francine Lares MD Service: ? Author Type: Physician Type: Progress Notes Filed: 02/07/2023 1:47 PM Note Text: PATIENT NAME: Kathy Washburn CLINIC NO.: [id number] ATTENDING PHYSICIAN: Francine Lares MD DATE OF [...] Value Ref Range Status (more content not included)...[facility]07-28-2023 History of Present illness Narrative* Francine Lares MD - 02/07/2023 1:38 PM EDT Images from the original note were not included. PATIENT NAME: Kathy Briggs [facility] NO.: [id number] ATTENDING PHYSICIAN: Francine Lares MD DATE OF [...] Range Status 07/19/2022 5.0 % Final Abs Licking Date Value Ref Range Status 07/19/2022 0.84 [...] do not hesitate to contact me at [phone]. Francnie Lares MD Hematology/Medical Oncology [facility] spent a total of 30 minutes on the date of the service which included preparing to see the patient, mmjv-ae-qnnp patient care, completing clinical documentation, obtaining and/or reviewing separately obtained history, counseling and educating the patient/family/caregiver, and ordering medications, tests, or procedures. CC: Ayanna Vicente DO [facility]* Encounter Date Diagnosis Assessment [...] prescription of Cipro when she was in [place], she finds that her symptoms seem to happen when she is traveling. We discussed her seeing Dr. El for evaluation due to recurrent urine infections. She voices that she has not contacted that office but will do this. Dec, Other 1:43 PM - 1:59 PM [facility] Other 06-26-2023 Evaluation note* Encounter Date Diagnosis Assessment Notes Treatment Notes Treatment Clinical Notes Dec, Hyperlipidemia (ICD-10 - E78.5) [facility] Other 04-05-2023 Evaluation note* Encounter Date Diagnosis Assessment Notes Treatment Notes Treatment Clinical Notes Oct, Neuropathy (ICD-10 - G62.9) [facility] Other 03-22-2023 Evaluation note* Encounter Date Diagnosis Assessment Notes Treatment Notes Treatment Clinical Notes Sep, Insomnia (ICD-10 - G47.00) [facility] Other 03-22-2023 Evaluation note* Encounter Date Diagnosis [...] to see her blood sugars below 90. [place] sugar readings are in the 120's. She [...] discussion for her to have with her licensed pesticide applicator. Sep, Insomnia (ICD-10 - G47.00) We discussed [...] has not driven past any local towns ([place], [place]). She did have a cardiac work up [...] had an MRI of her neck done. [facility] Other 01-09-2023 Miscellaneous Notes* Telephone Encounter - [...] RN * Telephone Encounter - Susan Todd [facility] - 07/19/2022 2:21 PM EST Records faxed to Dr. Ly. * Telephone Encounter - Susana Grant - 07/19/2022 1:21 PM EST Referral to Dr. Ly for Right ear pain. Heather/Royer: Can you please send information and follow up? Manuel Romero put information in your mailbox forreferral. Thank you! Susana Grant [facility] History of Present illness Narrative* Francine Lares MD - 07/19/2022 12:34 PM EST PATIENT NAME: Kathy Washburn [facility] NO.: [id number] ATTENDING PHYSICIAN: Francine Lares MD DATE OF [...] 11.45 (H) 1.00 - 4.00 k/uL Final Licking% Date Value Ref Range Status 07/19/2022 5.0 % Final Abs Licking Date Value Ref Range Status 07/19/2022 0.84 [...] do not hesitate to contact me at [phone]. Francine Lares MD Hematology/Medical Oncology [facility] spent a total of 30 minutes on the date of the service which included preparing to see the patient, [id number] patient care, completing clinical documentation, obtaining and/or reviewing separately obtained history, counseling and educating the patient/family/caregiver, and ordering medications, tests, or procedures. Medical Decision Making: Medical Decision Making Level: 1 - N/A CC: Ayanna Vicente DO [facility] Nurse Note* Lluvia aSmuel MA - 07/19/2022 12:20 PM EST Patient would like to ask you about her right ear, it is painful to touch, her head also hurts and also has Left side pain. Lluvia Samuel MA [facility] note* Encounter Date Diagnosis Assessment Notes Treatment Notes Treatment Clinical Notes May, Cystitis (ICD-10 - N30.90) [facility] Other 10-11-2022 Evaluation note* Encounter Date Diagnosis Assessment Notes Treatment Notes Treatment Clinical Notes Apr, BMI 31.0-31.9,adult (ICD-10 - Z68.31) [facility] Other 10-06-2022 History of Present illness Narrative* Francine Lares MD - 04/18/2022 11:59 AM EDT PATIENT NAME: Kathy Washburn CLINIC NO.: [id number] ATTENDING PHYSICIAN: Francine Lares MD DATE OF [...] 9.37 (H) 1.00 - 4.00 k/uL Final Licking% Date Value Ref Range Status 04/04/2022 5.0 % Final Abs Licking Date Value Ref Range Status 04/04/2022 0.67 [...] do not hesitate to contact me at [phone]. Francine Lares MD Hematology/Medical Oncology [facility] spent a total of 30 minutes on the date of the service which included preparing to see the patient, xcdu-ja-aaua patient care, completing clinical documentation, obtaining and/or reviewing separately obtained history, counseling and educating the patient/family/caregiver, and ordering medications, tests, or procedures. Medical Decision Making: Medical Decision Making Level: 1 - N/A CC: Ayanna Vicente DO [facility]* Encounter Date Diagnosis Assessment Notes Treatment Notes Treatment Clinical Notes Mar, Neuropathy (ICD-10 - G62.9) [facility] Other [id number] Miscellaneous Notes* Telephone Encounter - Francine Lares MD - 04/05/2022 5:06 PM EDT Spoke to the patient and answered her questions * Telephone Encounter - Niurka Hood RN - 04/05/2022 4:08 PM EDT Pt notified and verbalizes understanding. Pt would like to speak w/ you before her next appointment. Asks that you call her @ [phone] when you have time. Thanks! Niurka Hood [...] no one picked up documented in [facility]Van [facility] History of Present illness Narrative* Francine Lares MD - 04/04/2022 11:32 AM EDT PATIENT NAME: Kathy Washburn CLINIC NO.: [id number] ATTENDING PHYSICIAN: Francine Lares MD DATE OF [...] ago. Has a son who lives in [place]. She does not smoke nor drink heavily. [...] Francine Lares M.D. Hematology/Medical Oncology [facility] [phone] CC: Ayanna Vicente DO documented in [facility] Evaluation note* Encounter Date Diagnosis Assessment [...] hurt. She has not followed with any customer quality specialist. She saw Dr. Akins in the [...] would like to refer her to a guide visitor for evaluation, and she agrees. A referral [...] if needed. She can also see a parking line painter to discuss injections. She voices that she saw Dr. Guillaume in the past for migraines and would like to see Dr. Morales for evaluation. For now she will try to take the pain medication more often and see if this provides her with better relief and will continue to monitor. I will refer her to Dr. Morales for evaluation. Mar, 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 coordinator (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 therapy (ICD-10 - Z79.899) Mar, [...] to get this until seen by the guide visitor. She voices understanding. Mar, Encounter for screening [...] find out where Dr. Milner went in [place] and then will refer her back to Dr. Milner to discuss a colonoscopy. Mar, Weight loss (ICD-10 - R63.4) She has lost 1.5 pounds since last seen. [facility] Other 09-06-2022 Evaluation note* Encounter Date Diagnosis Assessment Notes Treatment Notes Treatment Clinical Notes Mar, Diabetes type 2, uncontrolled (ICD-10 - E11.65) Mar, Hypertension (ICD-10 - I10) Mar, Neuropathy (ICD-10 - G62.9) [facility] Other 08-26-2022 Evaluation note* Encounter Date Diagnosis Assessment Notes Treatment Notes Treatment Clinical Notes Feb, Diabetes type 2, uncontrolled (ICD-10 - E11.65) [facility] Other 07-27-2022 Evaluation note* Encounter Date Diagnosis [...] ER right away because she was at [place] which is 50 miles west of [place] and there was not an ER close [...] he thinks she can return to driving. [facility] Other 06-27-2022 Evaluation note* Encounter Date Diagnosis Assessment Notes Treatment Notes Treatment Clinical Notes Dec, Dysphagia (ICD-10 - R13.10) [facility] Other 06-27-2022 Evaluation note* Encounter Date Diagnosis Assessment Notes Treatment Notes Treatment Clinical Notes Dec, Other spondylosis with radiculopathy, lumbar region (ICD-10 - M47.26) [facility] Other 06-16-2022 Evaluation note* Encounter Date Diagnosis [...] M20.42) Dec, Foot deformity (ICD-10 - M21.969) [facility] Other 06-08-2022 Evaluation note* Encounter Date Diagnosis Assessment Notes Treatment Notes Treatment Clinical Notes Dec, Peripheral edema (ICD-10 - R60.9) [facility] Other 06-06-2022 Evaluation note* Encounter Date Diagnosis Assessment Notes Treatment Notes Treatment Clinical Notes Dec, History of colon polyps (ICD-10 - Z86.010) Dec, Irritable bowel syndrome with diarrhea (ICD-10 - K58.0) MAY USE IMODIUM NEEDED PT TO REPORT PROGRESS [facility] Other 05-02-2022 Evaluation note* Encounter Date Diagnosis Assessment Notes Treatment Notes Treatment Clinical Notes November, Cystitis (ICD-10 - N30.90) [facility] Other 03-22-2022 Evaluation note* Encounter Date Diagnosis [...] when she came home from traveling from [place] last week she had congestion and was coughing alot, she had alot of irritation in her throat and the back of her throat. She feels like someone put a bullet in her throat. She took a decongestant yesterday and feels better today. She wonders if the cough is from pulling something in her upper back because of bending to pick out hand suitcases. I did recommend that she have [...] that she was able to travel to [place] last week on her own for the first time by herself with her back issues and did well. She did have to use a wheelchair. She did need a wheelchair while in the airport. An [place]AR[place] report was reviewed, no discrepancies noted. Frequent appointments needed due to addiction potential. She has not gone to the [facility]. She voices that she never got a call back from that center and did not pursue this because she got involved with a urologist then developed bowel issues. She voices that she will follow up with the [facility] and Dr. Regan for this issue. [...] Sep, Other 2:54 PM - 3:20 PM [facility] Other 03-21-2022 Evaluation note* Encounter Date Diagnosis Assessment Notes Treatment Notes Treatment Clinical Notes Sep, Cough (ICD-10 - R05.9) [facility] Other 03-03-2022 Evaluation note* Encounter Date Diagnosis [...] I did recommend that she see a punchboard assembler for evaluation to discuss these issues further, [...] She agrees but she is going to [place] on 09-19-21 and will not return until [...] with the Imodium until she returns from [place] and is seen by Dr. Milner. She [...] Sep, Other 9:29 AM - 9:49 AM [facility] Other 01-05-2022 Evaluation note* Encounter Date Diagnosis Assessment Notes Treatment Notes Treatment Clinical Notes Jul, Neuropathy (ICD-10 - G62.9) [facility] Other 12-06-2021 Evaluation note* Encounter Date Diagnosis [...] refer her to the spine center in [place] but she did not pursue this. We [...] - N30.90) She currently follows with a water fabricator operator. She also saw Dr. Redding for evaluation and he did a procedure on her bladder to help with bladder leakage, she was supposed to see him again but he was sick so she is trying to get in to see either him or another doctor such as Dr. Peterson or Dr. Gleason, she does not want to see his PA or PACKAGING MACHINE OPERATOR. She gets a pain in her vaginal area, describes it as a cut but now it feels as if it is going up higher. When she went to [employer] yesterday she felt like someone cut her [...] Jun, Other 2:53 PM - 3:23 PM [facility] Other 10-12-2021 Evaluation note* Encounter Date Diagnosis Assessment Notes Treatment Notes Treatment Clinical Notes Apr, Neuropathy (ICD-10 - G62.9) [facility] Other 09-22-2021 Evaluation note* Encounter Date Diagnosis [...] Dr. Regan is referring her to the [facility] and she is seeing [...] the kidneys. She has never seen a bracer before. Her BUN is 40. Creatinine is [...] 6.2. We discussed referring her to a guide visitor for evaluation and to discuss this further but instead we will repeat lab in one month and if her level is this high or higher then we will do a referral through the [facility] in [place]. Mar, Knee pain (ICD-10 - M25.569) She [...] attending physical therapy and will see the [facility] soon. Mar, Weight loss (ICD-10 - R63.4) She has lost 5.5 pounds since last seen. She voices that she is trying to lose weight slowly. Encouraged her to continue with what she is doing. [facility] Other Evaluation + Plan note Future Appointments Appointment Date:02/24/2024 10:00:00 AM Scheduled Provider:SUSAN RANDOLPH PA-C Location:[facility] Appointment Type:URO Office Visit [facility] evaluation note* Diagnosis Pain in both knees, unspecified chronicity- Primary [facility] InformationNort Coup[facility] Other Evaluation note* Diagnosis Onset Date Resolution [...] acute Diabetes chronic Hypertension chronic Hypothyroidism chronic [facility] Work Phone: Evaluation note* Diagnosis Lymphocytosis- Primary Lymphocytosis (symptomatic) documented in this encounter [facility] note* Diagnosis CLL (chronic lymphocytic leukemia) (HCC)- Primary Chronic lymphoid leukemia, without mention of having achieved remission documented in this encounter [facility] note* Diagnosis Onset Date Resolution Status Acute UTI acute Chronic back pain acute Depression acute Diabetic neuropathy acute Fall acute Hematoma of right lower leg acute Impaired mobility and activities of daily living acute Minor closed head injury acu te Right wrist fracture acute Diabetes chronic Hypertension chronic Hypothyroidism chronic [facility] Work Phone: evaluation note* Diagnosis CLL (chronic lymphocytic leukemia) (HCC)- Primary Chronic lymphoid leukemia, without mention of having achieved remission Right ear pain Otalgia, unspecified Rib pain Chest pain, unspecified Axillary adenopathy Enlargement of lymph nodes Other signs and symptoms in breast Encounter for screening mammogram for malignant neoplasm of breast Other screening mammogram documented in this encounter [facility] noteNo assessment information [facility] Work Phone: evalujjhxs note* Diagnosis CLL (chronic lymphocytic leukemia) (HCC)- Primary Chronic lymphoid leukemia, without mention of having achieved remission documented in this encounter [facility] note* Diagnosis Onychomycosis- Primary Dermatophytosis of nail [...] rivera y Medical History 08-22-2011 Left femur [facility] [place] History 08-22-2011 Chest x-ray [facility] Medical History stress test-normal ([facility]) Medical History [...] on polyps - Hospitalization History see above [facility] Other Hishtmn general Narrative - Reported* Type Description Date Medical History pelvic exam done Medical History 2009 mammogram-normal Medical History 2009 colonoscopy Medical History 2003 CT scan done Medical History 2007 eye exam Medical History Zostavax done Medical History Flu/H1N1 vaccine Medical History mammogram Medical History DEXA scan Medical History Follows with Dr. Kelsie rivera y Medical History 08-22-2011 Left femur [facility] Medical History 08-22-2011 Chest x-ray [facility] Medical History stress test-normal ([facility]) Medical History [...] head lacera tion after a fall 01/13/22 [facility] Other history general Narrative - Reported* Type Description Date Medical History pelvic exam done Medical History 2009 mammogram-normal Medical History 2009 colonoscopy Medical History 2004 CT scan done Medical History 2008 eye exam Medical History -2009 Zostavax done Medical History Flu/H1N1 vaccine Medical History mammogram Medical History DEXA scan Medical History Follows with Dr. Kelsie rivera y Medical History 08-22-2011 Left femur [facility] Medical History 08-22-2011 Chest x-ray [facility] Medical History stress test-normal ([facility]) Medical History [...] head lacera tion after a fall 01/13/22 [facility] Other history general Narrative - Reported* Type Description Date Medical History pelvic exam done Medical History 2009 mammogram-normal Medical History 2009 colonoscopy Medical History 2004 CT scan done Medical History 2008 eye exam Medical History Zostavax done Medical History Flu/H1N1 vaccine Medical History mammogram Medical History DEXA scan Medical History Follows with Dr. Kelsie rivera y Medical History 08-22-2011 Left femur [facility] Medical History 08-22-2011 Chest x-ray [facility] Medical History stress test-normal ([facility]) Medical History [...] head lacera tion after a fall 01/13/22 [facility] Other Hospital course Narrative No data available for this section [facility] Hospital Discharge [facility] Work Phone: Progress note No data available for this section [facility] reason for referral (narrative)* Diagnostic Procedure Only (Routine) Status Reason Specialty Diagnoses / Procedures Referred By Contact Referred To Contact Pending Review Auto-Generated Referral XR IMAGING Diagnoses Pain in both knees, unspecified chronicity Procedures XR PELVIS 1V AP X-RAY PELVIS AP ONLY Dale Espinoza PA-C [address] [place] [address] Xr Imaging * Diagnostic Procedure Only (Routine) Status Reason Specialty Diagnoses / Procedures Referred By Contact Referred To Contact Pending Review Auto-Generated Referral XR IMAGING Diagnoses Pain in both knees, unspecified chronicity Procedures XR KNEE GENERAL 4V AP BOTH/PA BOTH/LAT/MERC BILAT KNEE AP-WGT/LAT/MERCHA NT Dale Espinoza PA-C [address] [place] [address] Xr Imaging [facility] for referral (narrative)* Diagnostic Procedure Only (Routine) - Pending Review Specialty Diagnoses / Procedures Referred By Selin vasquez Referred To Contact BR IMAGING Diagnoses Encounter for screening mammogram for malignant neoplasm of breast Procedures SONYA SCREENING W NEYDA SCREENING DIGITAL BREAST TOMOSYNTHESIS BI SCREENING MAMMOGRAPHY BI 2-VIEW BREAST INC CAD Francine Lares MD [address] [place] [address] [facility] [address] [place] [phone] Referral ID Status Reason Start Date Expiration Date Visits Requested Visits Authorized [id number] Pending Review Auto-Generat ed Referral 07/19/2022 08/18/2023 1 1 * Diagnostic Procedure Only (Routine) - Pending Review Specialty Diagnoses / Procedures Referred By Selin vasquez Referred To Contact BR IMAGING Diagnoses Axillary adenopathy Other signs and symptoms in breast Procedures US BREAST LTD LT US BREAST UNI REAL TIME WITH IMAGE LIMITED Francine Lares MD [address] [place] [address] [facility] [address] [place] [address] Referral ID Status Reason Start Date Expiration Date Visits Requested Visits Authorized [id number] Pending Review Auto-Generat ed Referral 07/26/2022 08/18/2023 1 1 * Diagnostic Procedure Only (Routine) - Pending Review Specialty Diagnoses / Procedures Referred By Selin vasquez Referred To Contact XR IMAGING Diagnoses Rib pain Procedures XR RIBS/CHEST 3V AP RIB/OBLS/CXR LEFT RADEX RIBS UNI W/POSTEROANT CH MINIMUM 3 VIEWS Francine Lares MD [address] [place] [address] Xr Imaging Referral ID Status Reason Start Date Expiration Date Visits Requested Visits Authorized [id number] Pending Review Auto-Generat ed Referral 07/19/2022 08/18/2023 1 1 * Consult, Test, Treat (Routine) - Authorized Specialty Diagnoses / Procedures Referred By Selin vasquez Referred To Contact Ent - Otolaryngology Diagnoses Right ear pain Procedures CONSULT TO ENT OFFICE/OUTPATIENT [facility] 60-74 MINUTES Francine Lares MD [address] [place] [address] Referral ID Status Reason Start Date Expiration Date Visits Requested Visits Authorized [id number] Authorized PCP Requested Referral 07/19/2022 07/19/2023 1 1 [facility] Reason appt pt needs cons ult to see Homa Mckeon /Dr. Corea for evaluation of lumbar pain Diagnosis 1 Other spondylosis wi th radiculopathy, lumbar region (M47.26) Referral Organization [facility] Family [facility] Referring Provider First Name Ayanna Referring Provider Last Name Sakina Referring Provider Specialty Family Prac art Referred Organization [facility] Referred Provider Homa Mckeon Referred Address [address],[address] Referred Provider Specialty Nurse Uli cotto Referral Priority Routine General Notes Nereyda Sanchez 04/15/2023 03:33:35 PM > referral sent p2p. pt understands she will be contacted to schedule this appt [facility] Other reason for visit Narrativereview labs, refill medication, discuss multiple issues, see treatment plan for further information [facility] Other reason for visit NarrativePT HERE AT REQUEST OF DR VICENTE FOR EVALUATION AND TREATMENT OF CHANGE IN STOOL HABITS AND HISTORY OF IRRITABLE BOWEL SYNDROME AND COLON POLYPS, REFERRAL NOTE RECEIVED[facility] Other Retkww for visit Narrativereview labs/med refill, discuss multiple issues see treatment planNoInsero Health Other reason for visit NarrativeNeurosurgery Referral Update [facility] Other Summary Purpose Family History No Family [...] in right hip (M 25.551) Referral [facility] Referring Provider First Name Homa Referring Provider Last Name Mckeon Referring Provider Specialty Nurse Pract itioner Referred Organization [facility] Referred Provider Bonnie Slade Referred Address [address] [place], [place],[address] Referred Provider Specialty Pain Medicin e Referral Priority Routine General Notes Susan Ugarte 04:33:20 PM >received today, holding referral for todays visit note to be locked Reason evaluate and t reat for hip pain Diagnosis 1 Pain in right hip (M 25.551) Ref[facility] Referring Provider First Name Homa Referring Provider Last Name Mike Referring Provider Specialty Nurse Pract itioner Referred Organization [facility] Referred Provider Gume Macedo Referred Address [address],[place],[address] Referred Provider Specialty Orthopedic S urgery Referral Priority Routine General Notes Susan Ugarte 04:34:14 PM >received today, sending p2p at this time for scheduling Reason Aqua therapy - evalu ate and treat Diagnosis 1 Pain in right hip (M 25.551) Diagnosis 2 Lumbar pain (M54.50) Referral Organization [facility] Referring Provider First Name Homa Referring Provider Last Name Mckeon Referring Provider Specialty Nurse Pract itioner Referred Organization [facility] Sched[facility] Referred Address [address] [place], [place],[address] Referred Provider Specialty Physical The rapist Referral Priority Routine Reason appt pt would like to discuss hip, back, knee and sciatic pain Diagnosis 1 Other spondylosis wi th radiculopathy, lumbar region (M47.26) Referral Organization [facility] Referring Provider First Name Ayanna Referring Provider Last Name Sakina Referring Provider Specialty Family Prac art Referred Organization [facility] Referred Provider Homa Mckeon Referred Address [address] ,[place],[address] Referred Provider Specialty Nurse Uli cotto Referral Priority Routine General Notes Nereyda Sanchez 07/16/2023 03:06:01 PM > referral sent p2p. pt understands she will be contacted to schedule this appt Reason appt pt is lu gilliam to see any of the providers consult for eval and treatment of rheumatism/prescribing of Plaquenil Diagnosis 1 Rheumatism, unspecif ied (M79.0) Referral Organization [facility] Referring Provider First Name Ayanna Referring Provider Last Name Sakina Referring Provider Specialty Family Prac art Referred Organization [facility] Referred Provider Esteban Saravia Referred Address [address] [facility] [place],[address] Referred Provider Specialty Rheumatology Referral Priority Routine [...] Wrist fracture, righ t (S62.101A) Referral Organization [facility] Referring Provider First Name Ayanna Referring Provider Last Name Sakina Referring Provider Specialty Family Prac art Referred Organization [facility] Referred Provider Penny Mike Referred Address [address] [place] [place],[address] Referred Provider Specialty Hand Surgery Referral Priority [...] th radiculopathy, lumbar region (M47.26) Referral Organization [facility] Medicin liseth Restrepo Referring Provider First Name Ayanna Referring Provider Last Name Earleabbi Referring Provider Specialty Family Prac art Referred Organization [facility] Referred Provider Anthony Morales Referred Address [address] [place],[address] Referred Provider Specialty Psychiatry, Neurology (Osteopaths only) [...] Diagnosis 1 Leukocytosis (D72.82 9) Referral Organization [facility] Yolie Restrepo Referring Provider First Name Ayanna Referring Provider Last Name Sakina Referring Provider Specialty [facility] Prac art Referred Organization [facility] Referred Provider Saqib Coleman Referred Address [address] [place], [place],[address] Referred Provider Specialty Hematology/O ncology Referral Priority [...] Knee pain, right (M2 5.561) Referral Organization [facility] Picketin Bel Vino Albion Referring Provider First Name Ayanna Referring Provider Last Name Sakina Referring Provider Specialty Family Prac art Referred Organization [facility] Referred Provider Bertrand Akins II Referred Address [address] [place] [place],[address] Referred Provider Specialty Orthopedic S urgery Referral [...] Referred Provider Ayanna Milner Referred Address [address] [facility] [address] ,[place], [place],[address] Referred Provider Specialty Gastroentero logy Referral Priority [...] section and content) DATE CREATED AUTHOR [facility]/06/2021 [facility] DATE CREATED AUTHOR AUTHOR'S ORGANIZ ATION 08/16/2022 [facility] DATE CREATED AUTHOR AUTHOR'S ORGANIZ ATION 11/13/2022 [facility] DATE CREATED AUTHOR AUTHOR'S ORGANIZ ATION 02/17/2023 Harish Barrera [facility] DATE CREATED AUTHOR AUTHOR'S ORGANIZ ATION 05/03/2023 [facility] DATE CREATED AUTHOR AUTHOR'S ORGANIZ ATION 08/10/2023 [facility] DATE CREATED AUTHOR AUTHOR'S ORGANIZ ATION 08/30/2023 [facility] dical [facility] DATE CREATED AUTHOR AUTHOR'S ORGANIZ ATION 08/31/2023 [facility] Source Comments (unrecognize d section and content) In the event this informatio n is protected by the Federal Confidentiality of Alcohol and Drug Abuse Patient Records regulations: The Federal rules restrict any use of the information to criminally investigate or prosecute any alcohol or drug abuse patient.[facility] the event this information is protected by the Federal Confidentiality of Alcohol and Drug Abuse Patient Records regulations: The Federal rules restrict any use of the information to criminally investigate or prosecute any alcohol or drug abuse patient.[facility] the event this information is protected by the Federal Confidentiality of Alcohol and Drug Abuse Patient Records regulations: The Federal rules restrict any use of the information to criminally investigate or prosecute any alcohol or drug abuse patient.[facility] the event this information is protected by the Federal Confidentiality of Alcohol and Drug Abuse Patient Records regulations: The Federal rules restrict any use of the information to criminally investigate or prosecute any alcohol or drug abuse patient.[facility] the event this information is protected by the Federal Confidentiality of Alcohol and Drug Abuse Patient Records regulations: The Federal rules restrict any use of the information to criminally investigate or prosecute any alcohol or drug abuse patient.[facility] the event this information is protected by the Federal Confidentiality of Alcohol and Drug Abuse Patient Records regulations: The Federal rules restrict any use of the information to criminally investigate or prosecute any alcohol or drug abuse patient.[facility] the event this information is protected by the Federal Confidentiality of Alcohol and Drug Abuse Patient Records regulations: The Federal rules restrict any use of the information to criminally investigate or prosecute any alcohol or drug abuse patient.[facility] REASON FOR VISIT (unrecogniz ed section [...] MD Other Provider Active Kitty Powell , BREAK UP WORKER Other Provider Active Madeline Juarez , DO [...] Vicente , DO Primary Care Provider Active Tugger Operator Relationship Specialty Start Date End Date Ayanna Vicente, DO [address] [place] [id number] PCP - General Family Medicine 08/01/11 Ayanna Vicente, DO [address] [place] [id number] Referring Family Medicine 10/04/20 Ayanna iVcente, DO [address] [place] [address] Referring Family Medicine 01/09/21 Tugger Operator Relationship Specialty Start Date End Date Ayanna Vicente, DO [address] [place] [phone] PCP - General Family Medicine 08/01/11 Ayanna Vicente, DO [address] [place] [address] Referring Family Medicine 10/04/20 Ayanna Vicente, DO [address] [place] [address] Referring Family Medicine 01/09/21 Tugger Operator Relationship Specialty Start Date End Date Ayanna Vicente, DO [address] [place] [phone] PCP - General Family Medicine 08/01/11 Ayanna Vicente, DO [address] [place] [address] Referring Family Medicine 10/04/20 Ayanna Vicente, DO [address] [place] [address] Referring Family Medicine 01/09/21 Tugger Operator Relationship Specialty Start Date End Date Ayanna Vicente, DO [address] [place] [address] PCP - General Family Medicine 08/01/11 Ayanna Vicente, DO [address] [place] [address] Referring Family Medicine 10/04/20 Ayanna Vicente, DO [address] [place] [phone] Referring Family Medicine 01/09/21 Team Status: Inactive Member Role Status Dates Ayanna Vicente DO Primary Care Provider, Family Provid er Active Francine Lares MD Attending Provider Active Team Status: Inactive Member Role Status Dates Ayanna Vicente DO Primary Care Provider, Family Provid er Active PABLO Sam Attending Provider Active Tugger Operator Relationship Specialty Start Date End Date Ayanna Vicente DO [address] [place] [phone] PCP - General Family Medicine 08/01/11 Ayanna Vicente DO [address] [place] [address] Referring Family Medicine 10/04/20 Ayanna Vicente DO [address] [place] [address] Referring Family Medicine 01/09/21 Tugger Operator Relationship Specialty Start Date End Date Ayanna Vicente MD [address] [facility] [place] [address] PCP - General Family Medicine 12/10/22 Tugger Operator Relationship Specialty Start Date End Date Ayanna Vicente MD [address] [place] [address] PCP - General Family Medicine [...] BE BASED ON THE PRIMARY CLINICAL RECORDS. [employer] provides no warranty or guarantee of the accuracy or completeness of information in this document.
== END 2023-09-01 10:01 | disposition home or self-care (01) ==
LOC: MRI 10:01
PROVIDERS: PCP Family Medicine; Visit Provider Anesthesiology
DX: M48.062 Spinal stenosis, lumbar region with neurogenic claudication (principal); M51.36 Other intervertebral disc degeneration, lumbar region; M51.37 Other intervertebral disc degeneration, lumbosacral region
CPT/HCPCS: 72148

== ENCOUNTER 2023-09-17 12:42 | Outpatient (OUT) | payer MEDICARE, SELFPAY ==
--- NOTE | 2023-09-17 12:59 | P.CN_ITS ---
Consult Note: HPI Data of Consult Patient: known to practice within the last 3 years Consult date: 08/25/23 Requesting Physician: Helen De La Paz NP Primary Care Provider: AYANNA VICENTE Consult Narrative Reason for consult: low back, right hip, right leg pain Narrative: 83yof who presents for evaluation. worsening low back, right leg pain. xr show multilevel degeneration. fused from l4-l5. has continued in provider directed home exercise program >6 weeks, with minimal benefit. uses robaxin, otc pain meds. denies adverse med side effects. cc:: CC: Helen De La Paz NP Review of Systems ROS Status of ROS 10 or more systems reviewed and unremark able except as noted in history and below [facility] Medical History (Updated 09/17/23 @ 13:21 by Helen De La Paz NP) Osteoarthritis ?M19.90 - Unspecified osteoarthritis, unspecified site (ICD-10) Chronic lymphocytic leukemia ?C91.10 - Chronic lymphocytic leukemia of B-cell type not having achieved remission (ICD-10) Diabetes ?E11.9 - Type 2 diabetes mellitus without complications (ICD-10) Former smoker ?Z87.891 - Personal history of nicotine dependence (ICD-10) High cholesterol ?E78.00 - Pure hypercholesterolemia, unspecified (ICD-10) Hypertension ?I10 - Essential (primary) hypertension (ICD-10) Surgical History (Updated 08/26/23 @ 14:45 by Temi Montes) S/P lumbar fusion ?Z98.1 - Arthrodesis status (ICD-10) S/P hernia surgery ?Z98.890 - Other specified postprocedural states (ICD-10) ?Z87.19 - Personal history of other diseases of the digestive system (ICD-10) H/O: hysterectomy ?Z90.710 - Acquired absence of both cervix and uterus (ICD-10) Social History Smoking status: Never smoker Meds Home Medications and Allergies Home Medications Medication Instructions Recorded Confirmed Type B-complex with vitamin C 1 tab PO DAILY 08/25/23 09/01/23 History aspirin 81 mg tablet,delayed 81 mg PO DAILY 08/25/23 09/01/23 History release atorvastatin 20 mg tablet (Lipitor) 20 mg PO DAILY 08/25/23 09/01/23 History cholecalciferol (vitamin D3) 125 125 mcg PO DAILY 08/25/23 09/01/23 History mcg (5,000 unit) capsule ezetimibe 10 mg tablet (Zetia) 10 mg PO DAILY 08/25/23 09/01/23 History levothyroxine 100 mcg tablet 100 mcg PO DAILY 08/25/23 09/01/23 History (Synthroid) lisinopril 10 mg tablet 10 mg PO DAILY 08/25/23 09/01/23 History metformin 1,000 mg tablet 1,000 mg PO BID 08/25/23 09/01/23 History multivitamin 1 tab PO DAILY 08/25/23 09/01/23 History oxybutynin chloride 5 mg tablet 5 mg PO DAILY 08/25/23 09/01/23 History oxycodone-acetaminophen 5 mg-325 1 tab PO BID PRN pain 08/25/23 09/01/23 History mg tablet pregabalin 225 mg capsule (Lyrica) 225 mg PO BID 08/25/23 09/01/23 History propranolol 60 mg tablet 60 mg PO DAILY 08/25/23 09/01/23 History triamterene 37.5 1 tab PO DAILY 08/25/23 09/01/23 History mg-hydrochlorothiazide 25 mg tablet (Maxzide-25mg) venlafaxine 75 mg capsule,extended 75 mg PO DAILY 08/25/23 09/01/23 History release 24 hr (Effexor XR) zolpidem 5 mg tablet 5 mg PO DAILY 08/25/23 09/01/23 History Allergies Allergy/AdvReac Type Severity Reaction Status Date / Time cefpodoxime [From Vantin] Allergy Verified 09/01/23 09:14 Exam Narrative Exam Narrative: Psych-alert and oriented x 3. Attentive and appropriate, constitutionally normal, displays normal mood and affect per situation. There are no obvious deficits in memory, reasoning, or intellect.? Skin-no obvious rashes, bruising, erythema noted to the patient's area of pain.? Extremities- extremities are warm with minimal edema and palpable pulses. bilateral knees painful with activity, nontender no edema noted. Lumbar-tenderness to palpation noted in the lumbar spine and paraspinal musculature. Pain is elicited with flexion, extension, and lateral rotation of the lumbar spine. Range of motion is diminished with these motions. Facet loading maneuvers are positive. Strength-noted to be unremarkable with the exception of decreased strength rated at 4 out of 5 in right quadriceps femoris, anterior tibialis. Sensory-no notable sensory deficits in the bilateral lower extremities to touch or pinprick in all dermatomal distributions with the exception to decreased sensation to the right L4, 5 dermatomal distribution Sacroiliac - nontender to palpation over right PSIS. Negative Buster's on right side. Negative thigh thrust on right side. Coordination remains intact.? Gait remains non-antalgic. Constitutional Documenting provider has reviewed patient's vital signs: yes Common normals: no apparent distress, oriented x3, healthy appearing, alert and well nourished General appearance: cooperative HENMT Common normals: normocephalic, hearing grossly normal bilaterally and moist oral mucous membranes Head and scalp: normocephalic Eye Common normals: PERRL Pupil: PERRL Neck & C-Spine Common normals: full ROM General: normal visual inspection Chest Common normals: inspection of chest normal Respiratory Common normals: normal respiratory effort, no retractions and no use of accessory muscles Neuro Common normals: oriented x3, CN's II-XII intact bilaterally, moves all extremities, no focal motor deficits, no sensory deficits noted and deep tendon reflexes 2+ bilaterally Sensorium/orientation: alert Motor exam: strength 5/5 throughout and no movement abnormalities noted Psych Common normals: mental status grossly normal, thought process normal, cooperative, affect normal, speech normal and activity/motor behavior normal Speech: normal speech Thought process: normal thought process Results Imaging lumbar mri: Radiologist's impression: FINDINGS: There are postoperative changes from posterior lumbar interbody fusion and fixation at L4-L5. Alignment normal. No spondylolisthesis. No compression fractures. L5-S1, moderate to severe degenerative disc disease most severe on the left side of the disc space. No central spinal canal stenosis. Disc space narrowing and osteophytes result in moderate left foraminal narrowing. Mild right foraminal narrowing. L4-L5, spinal canal is decompressed. No spinal stenosis. No significant foraminal narrowing. L3-L4, severe degenerative disc disease most severe on the right side of the disc space. Mild facet arthropathy. There is ligamentum flavum thickening. Degenerative changes result in moderate spinal canal stenosis. Disc space narrowing and osteophytes result in severe right foraminal narrowing. Mild left foraminal narrowing. L2-L3, severe degenerative disc disease. Diffuse disc bulge. Mild spinal stenosis. Moderate foraminal narrowing. L1-L2, moderate degenerative disc disease. No spinal stenosis or foraminal narrowing. No abnormal signal in the conus medullaris. No paraspinal masses. Additional Findings Additional findings: I have checked an OARRS report on this patient today and there are no aberrancies noted in the prescribing history.?? A drug screen was completed and reviewed within the last year, and if there has not been a drug screen completed we ordered one today to monitor higher risk, state monitored pain medication use. As part of providing excellent, safe, comprehensive care, the following was completed at our patient's visit: 1. A medication reconciliation and review to ensure accurate knowledge of current/active medications, including asking our patients to inform us about any [id number]-[id number] medications or herbal remedies/nutritional supplements/alternative remedies. 2. A review to specifically ensure our patients have had annual screening for: elevated body mass index (BMI), tobacco use, screening for depression, and screening for unhealthy alcohol use. When screening is concerning, patients are provided with education and the specific recommendation to discuss the concerning health issue and treatment options with their primary care provider. 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 consider spinal cord stimulator in the future with low back pain post lami syndrome and painful diabetic neuropathy.
== END 2023-09-17 12:43 | disposition home or self-care (01) ==
LOC: PM 12:43
PROVIDERS: PCP Family Medicine; Visit Provider Nurse Practitioner
DX: M48.062 Spinal stenosis, lumbar region with neurogenic claudication (principal); M96.1 Postlaminectomy syndrome, not elsewhere classified; M53.3 Sacrococcygeal disorders, not elsewhere classified; E11.40 Type 2 diabetes mellitus with diabetic neuropathy, unspecified; M79.662 Pain in left lower leg; M79.661 Pain in right lower leg
CPT/HCPCS: G0463

== ENCOUNTER 2024-02-04 14:43 | Outpatient (OUT) | payer MEDICARE, SELFPAY ==
[2024-02-04 15:15] LABS: Bilirubin Urine NEGATIVE (NEGATIVE); Blood Urine NEGATIVE (NEGATIVE); Clarity Urine CLEAR (CLEAR); Color Urine YELLOW (YELLOW); Glucose Urine UA NEGATIVE (NEGATIVE); Ketones Urine NEGATIVE (NEGATIVE); Leukocyte Esterase Urine TRACE (NEGATIVE); Nitrite Urine NEGATIVE (NEGATIVE); Protein Urine TRACE mg/dL (NEG/TRACE); Specific Gravity Urine >=1.030 (1.005-1.025); Urobilinogen Urine 0.2 EU/dL (0.2-1.0)
[2024-02-04 15:40] LABS: Bacteria Urine TRACE #/HPF (NONE SEEN); Cast Seen? NONE SEEN #/LPF (NONE SEEN); Crystals Seen? None Seen #/HPF (None Seen); Mucus Urine TRACE (NONE SEEN); RBC Urine 0-2 #/HPF (0-2); Squamous Epithelial Cell Urine RARE #/LPF (NONE/RARE)
== END 2024-02-04 14:44 | disposition home or self-care (01) ==
PROVIDERS: PCP Family Medicine; Visit Provider Family Medicine
DX: N30.90 Cystitis, unspecified without hematuria (principal)
CPT/HCPCS: 81001; 87086; 87150; 87186

== ENCOUNTER 2024-06-07 11:53 | Outpatient (OUT) | payer MEDICARE, SELFPAY ==
--- NOTE | 2024-06-07 13:17 | PM.CN ---
Consult Note: HPI Data of Consult Patient: known to practice within the last 3 years Consult date: 06/07/24 Requesting Physician: Som Azul MD Primary Care Provider: AYANNA VICENTE Consult Narrative Reason for consult: low back, left leg pain Narrative: 83yof who presents for assessment. worsening pain through the low back and left lower extremity. imaging reviewed, which shows multilevel stenosis, particularly at l3-4 and l5-s1. has completed >6 weeks of provider directed home exercise program, with no benefit. uses pain meds as needed. denies adverse med side effects. cc:: CC: Som Azul MD Review of Systems ROS Status of ROS 10 or more systems reviewed and unremarkable except as noted in history and [facility] History (Updated 06/07/24 @ 13:22 by Som Azul MD) Osteoarthritis ?M19.90 - Unspecified osteoarthritis, unspecified site (ICD-10) Chronic lymphocytic leukemia ?C91.10 - Chronic lymphocytic leukemia of B-cell type not having achieved remission (ICD-10) Diabetes ?E11.9 - Type 2 diabetes mellitus without complications (ICD-10) Former smoker ?Z87.891 - Personal history of nicotine dependence (ICD-10) High cholesterol ?E78.00 - Pure hypercholesterolemia, unspecified (ICD-10) Hypertension ?I10 - Essential (primary) hypertension (ICD-10) Surgical History S/P lumbar fusion ?Z98.1 - Arthrodesis status (ICD-10) S/P hernia surgery ?Z98.890 - Other specified postprocedural states (ICD-10) ?Z87.19 - Personal history of other diseases of the digestive system (ICD-10) H/O: hysterectomy ?Z90.710 - Acquired absence of both cervix and uterus (ICD-10) Social History Smoking status: Never smoker Meds Home Medications and Allergies Home Medications ?Medication ?Instructions ?Recorded ?Confirmed ?Type B-complex with vitamin C 1 tab PO DAILY 08/25/23 09/01/23 History aspirin 81 mg tablet,delayed 81 mg PO DAILY 08/25/23 09/01/23 History release atorvastatin 20 mg tablet (Lipitor) 20 mg PO DAILY 08/25/23 09/01/23 History cholecalciferol (vitamin D3) 125 125 mcg PO DAILY 08/25/23 09/01/23 History mcg (5,000 unit) capsule ezetimibe 10 mg tablet (Zetia) 10 mg PO DAILY 08/25/23 09/01/23 History levothyroxine 100 mcg tablet 100 mcg PO DAILY 08/25/23 09/01/23 History (Synthroid) lisinopril 10 mg tablet 10 mg PO DAILY 08/25/23 09/01/23 History metformin 1,000 mg tablet 1,000 mg PO BID 08/25/23 09/01/23 History multivitamin 1 tab PO DAILY 08/25/23 09/01/23 History oxybutynin chloride 5 mg tablet 5 mg PO DAILY 08/25/23 09/01/23 History oxycodone-acetaminophen 5 mg-325 1 tab PO BID PRN pain 08/25/23 09/01/23 History mg tablet pregabalin 225 mg capsule (Lyrica) 225 mg PO BID 08/25/23 09/01/23 History propranolol 60 mg tablet 60 mg PO DAILY 08/25/23 09/01/23 History triamterene 37.5 1 tab PO DAILY 08/25/23 09/01/23 History mg-hydrochlorothiazide 25 mg tablet (Maxzide-25mg) venlafaxine 75 mg capsule,extended 75 mg PO DAILY 08/25/23 09/01/23 History release 24 hr (Effexor XR) zolpidem 5 mg tablet 5 mg PO DAILY 08/25/23 09/01/23 History Allergies Allergy/AdvReac Type Severity Reaction Status Date / Time cefpodoxime (From Vantin) Allergy Verified 09/01/23 09:14 Exam Narrative Exam Narrative: Psych-alert and oriented x 3. Attentive and appropriate, constitutionally normal, displays normal mood and affect per situation. There are no obvious deficits in memory, reasoning, or intellect.? Skin-no obvious rashes, bruising, erythema noted to the patient's area of pain.? Extremities- extremities are warm with minimal edema and palpable pulses. Lumbar-tenderness to palpation noted in the lumbar spine and paraspinal musculature. Pain is elicited with flexion, extension, and lateral rotation of the lumbar spine. Range of motion is diminished with these motions. Facet loading maneuvers are positive. Strength-noted to be unremarkable with the exception of decreased strength rated at 4 out of 5 in left quadriceps femoris. Sensory-no notable sensory deficits in the bilateral lower extremities to touch or pinprick in all dermatomal distributions with the exception to decreased sensation to the left L3, 4, 5 dermatomal distribution Sacroiliac - tender to palpation over left PSIS. Positive Buster's on the left. Positive thigh thrust on the left. Coordination remains intact.? Gait remains non-antalgic. Assessment and Plan Assessment and Plan (1) Lumbar stenosis with neurogenic claudication: (2) Lumbar postlaminectomy syndrome: (3) Sacroiliac joint dysfunction of left side: Plan 83yof who presents for assessment. failed conservative measures, as noted. imaging reviewed, as noted. given symptoms and imaging, prudent to attempt left l3-4, l5-s1 tfesi under fluoroscopic guidance. may even benefit from left SIJ injection under fluoroscopic guidance. she is in agreement. meds reviewed, no changes. follow up after procedure.
== END 2024-06-07 11:54 | disposition home or self-care (01) ==
LOC: PM 11:54
PROVIDERS: PCP Family Medicine; Visit Provider Anesthesiology
DX: M48.062 Spinal stenosis, lumbar region with neurogenic claudication (principal); M96.1 Postlaminectomy syndrome, not elsewhere classified; M53.3 Sacrococcygeal disorders, not elsewhere classified
CPT/HCPCS: G0463

== ENCOUNTER 2024-06-14 08:02 | Day surgery (SDC) | payer MEDICARE, SELFPAY ==
[2024-06-14 08:26] LABS: Glucometer 124 mg/dL (74-106)
[2024-06-14 08:29] VITALS: BP 115/73; PULSE 67; TEMP 36.4; O2SAT 94
[2024-06-14] MEDS: 0.9 % SODIUM CHLORIDE 10 ML SYRINGE - SALINE FLUSH INJ (08:50)
[2024-06-14] MEDS: DEXAMETHASONE SOD PHOS (PF) 10 MG/ML VIAL INJ (08:50)
[2024-06-14] MEDS: BUPIVACAINE HCL 0.25% PF 25 MG/10 ML VIAL INJ (08:50)
[2024-06-14] MEDS: LIDOCAINE HCL 2% 400 MG/20 ML MDV 3 ML INJ (08:51)
[2024-06-14] MEDS: IOHEXOL 240 MG/ML - 10 ML VIAL 24 MG INJ (08:51)
[2024-06-14 08:52] VITALS: BP 114/72; BP 123/61; PULSE 68; PULSE 71; O2SAT 93; O2SAT 94
--- NOTE | 2024-06-14 08:56 | P.ON_ITS ---
Date of procedure: 06/14/24 Pre-op diagnosis: Pain due to lumbar stenosis with neurogenic claudication Post-op diagnosis: same as pre-op Procedure: Procedure: Left L3-4, L5-S1 transforaminal epidural steroid injection Medications: Bupivacaine 0.25% 2cc, lidocaine 2% 1cc, kenalog 80mg The patient was seen and examined in the preoperative holding area.? Informed consent was obtained and placed on the chart.? Patient was brought to the medical procedure unit and placed in the prone position where a timeout was completed verifying the correct patient, procedure site, position, and planned special equipment using sterile aseptic technique.? Under direct fluoroscopic visualization a 25-gauge Quincke tipped spinal needle was advanced to the designated neural foramen where contrast dye was injected to show adequate spread.? The needle was inserted at level left L3-4. There was no evidence of vascular or adverse uptake.? Epidural spread was appreciated.? The above- mentioned injectate was then placed in a 1.5 mL aliquot preceded by negative aspiration.? The needle was removed. The needle was inserted and the procedure repeated at level left L5-S1.? The surgery site was covered.? Patient was taken to the postprocedural recovery area and monitored for an appropriate length of time before found suitable for discharge in the accompaniment of a responsible adult. Anesthesia: Local Surgeon: Som Azul Pathology: none sent Condition: stable Disposition: no change
== END 2024-06-14 09:00 | disposition home or self-care (01) ==
LOC: SURGOUT 08:03
PROVIDERS: PCP Family Medicine; Visit Provider Anesthesiology
DX: M48.062 Spinal stenosis, lumbar region with neurogenic claudication (principal); E11.9 Type 2 diabetes mellitus without complications; Z79.84 Long term (current) use of oral hypoglycemic drugs
CPT/HCPCS: 36415; 64483; 64484; 82948; J0665; J1100; Q9966

== ENCOUNTER 2024-06-15 19:47 | Emergency (ER) | payer MEDICARE, SELFPAY ==
[2024-06-15 19:51] VITALS: BP 145/68; PULSE 59; TEMP 36.5; O2SAT 97; BMI 33.2
--- NOTE | 2024-06-15 20:05 | CT_ITS ---
The [address] [address] Patient Name: MIGUEL A APARICIO MRN: [facility]:[id number] date: 1940 Sex: F Assigned Patient Location: ER Current Patient Location: Accession/Order Number: [id number] Exam Date: 06/15/2024 20:26 Report Date: 06/15/2024 20:48 At the request of: BRANDON MARKER Procedure: CT head/brain wo con EXAMINATION: CT head/brain wo con HISTORY: post procedural headache COMPARISON: None. TECHNIQUE: Head CT without intravenous contrast. Dose reduction techniques were achieved by using: automated exposure control and/or adjustment of mA and /or kV according to patient size and/or use of iterative reconstruction technique. FINDINGS: The ventricles and sulci are within normal limits in size and configuration for age. There is no evidence for acute intracranial hemorrhage. There are no foci of abnormal parenchymal attenuation. There is no mass effect or midline shift. There are no abnormal extraaxial fluid collections. No subdural hygromas. CT/CT head/brain wo con IMPRESSION: Negative for acute hemorrhage or acute intracranial process. Electronically authenticated by: JESUS BOWEN Date: 06/15/2024 20:48
--- NOTE | 2024-06-15 20:06 | ED_ITS ---
HPI HPI - General Adult General Chief complaint: Headache Stated complaint: headache Time Seen by Provider: 06/15/24 19:52 Source: patient Mode of arrival: walk-in Limitations: no limitations History of Present Illness HPI narrative: This 83-year female with a history of migraine headaches in the past presents for evaluation of a posterior headache that goes forward associated with nausea and squiggly lines in her left eye. The patient states the symptoms started today. She still has a headache despite taking Tylenol. She had an epidural injection in her back yesterday that was a steroid injection. She is not sure if the headache may be related to that. She has no fever or nuchal rigidity. She did have approximately 8 episodes of diarrhea earlier today and some mild abdominal cramping but denies any abdominal pain or blood in her stool. She has had some nausea but no vomiting. She has no focal neurologic weakness numbness or tingling. She has not had any blurred vision besides the lines in her left eye, slurred speech or confusion. She denies any chest pain or shortness of breath. She has had the epidural injections in the past that did not result in any diarrhea. Additionally she states that her sugar went up to 270 today likely related to the steroid injection she received. Related Data Home Medications ?Medication ?Instructions ?Recorded ?Confirmed B-complex with vitamin C 1 tab PO DAILY 08/25/23 06/14/24 aspirin 81 mg tablet,delayed 81 mg PO DAILY 08/25/23 06/14/24 release atorvastatin 20 mg tablet (Lipitor) 20 mg PO DAILY 08/25/23 06/14/24 cholecalciferol (vitamin D3) 125 125 mcg PO DAILY 08/25/23 06/14/24 mcg (5,000 unit) capsule ezetimibe 10 mg tablet (Zetia) 10 mg PO DAILY 08/25/23 06/14/24 levothyroxine 100 mcg tablet 100 mcg PO DAILY 08/25/23 06/14/24 (Synthroid) lisinopril 10 mg tablet 10 mg PO DAILY 08/25/23 06/14/24 metformin 1,000 mg tablet 1,000 mg PO BID 08/25/23 06/14/24 multivitamin 1 tab PO DAILY 08/25/23 06/14/24 oxybutynin chloride 5 mg tablet 5 mg PO DAILY 08/25/23 06/14/24 oxycodone-acetaminophen 5 mg-325 1 tab PO BID PRN pain 08/25/23 06/14/24 mg tablet pregabalin 225 mg capsule (Lyrica) 225 mg PO BID 08/25/23 06/14/24 propranolol 60 mg tablet 60 mg PO DAILY 08/25/23 06/14/24 triamterene 37.5 1 tab PO DAILY 08/25/23 06/14/24 mg-hydrochlorothiazide 25 mg tablet (Maxzide-25mg) venlafaxine 75 mg capsule,extended 75 mg PO DAILY 08/25/23 06/14/24 release 24 hr (Effexor XR) zolpidem 5 mg tablet 5 mg PO DAILY 08/25/23 06/14/24 Allergies Allergy/AdvReac Type Severity Reaction Status Date / Time cefpodoxime (From Vantin) Allergy Unknown Unknown Verified 06/14/24 08:30 Opioid HPI Opioid Management Most Recent Opioid Data: Last Pain Scale 7 06/15/24 21:04 06/15/24 Review of Systems ROS Status of ROS 10 or more systems reviewed and unremark able except as noted in history and below [facility] Medical History (Updated 06/15/24 @ 21:39 by Tri Ag MD) Osteoarthritis ?M19.90 - Unspecified osteoarthritis, unspecified site (ICD-10) Chronic lymphocytic leukemia ?C91.10 - Chronic lymphocytic leukemia of B-cell type not having achieved remission (ICD-10) Diabetes ?E11.9 - Type 2 diabetes mellitus without complications (ICD-10) Former smoker ?Z87.891 - Personal history of nicotine dependence (ICD-10) High cholesterol ?E78.00 - Pure hypercholesterolemia, unspecified (ICD-10) Hypertension ?I10 - Essential (primary) hypertension (ICD-10) Surgical History S/P lumbar fusion ?Z98.1 - Arthrodesis status (ICD-10) S/P hernia surgery ?Z98.890 - Other specified postprocedural states (ICD-10) ?Z87.19 - Personal history of other diseases of the digestive system (ICD-10) H/O: hysterectomy ?Z90.710 - Acquired absence of both cervix and uterus (ICD-10) Social History Smoking status: Never smoker Little interest or pleasure in doing things: not at all Feeling down, depressed, or hopeless: not at all Exam Narrative Exam Narrative: Vital signs and Nursing Notes reviewed: Patient is afebrile, she is mildly bradycardic with a pulse of 59, blood pressure is mildly elevated 145/68, she is not hypoxic with pulse ox of 97% on room air General: Awake, alert, oriented, no acute distress, lying comfortably on the stretcher HEENT: Normocephalic atraumatic, mucous membranes are slightly dry, no facial droop noted Neck: Supple, no meningeal signs, no anterior or posterior cervical lymphadenopathy Chest: Lungs are clear to auscultation with good air entry, there is no wheezing rhonchi or rales appreciated no accessory muscle use, patient is speaking in complete sentences-no chest wall tenderness to palpation CVS: Regular rate and rhythm S1-S2, no murmurs rubs or gallops, pulses are brisk and equal bilaterally ABD: Soft, nondistended, nontender, no rebound guarding or rigidity, bowel sounds are normal, no pulsatile masses appreciated Extremities: Moving all extremities, no lower extremity tenderness or swelling noted, negative Homans' sign, pulses are brisk and equal bilaterally Skin: Normal in appearance without rash,pallor, petechiae or purpura Neuro: No focal deficits, speech is clear, there is no facial droop, assessment analyst strength is intact, upper and lower extremity strength and sensation is intact, no diplopia or visual field cuts noted on exam, NIH stroke scale is 0 Constitutional Vital Signs, click to edit/add: Last Vital Signs Temp 97.7 F 06/15/24 19:51 Pulse 58 L 06/15/24 21:36 Resp 18 06/15/24 21:36 BP 129/73 06/15/24 21:36 Pulse Ox 95 06/15/24 21:36 O2 Del Method Room Air 06/15/24 19:51 Course Vital Signs Vital signs: Vital Signs Temperature 97.7 F 06/15/24 19:51 Pulse Rate 59 L 06/15/24 19:51 Respiratory Rate 18 06/15/24 19:51 Blood Pressure 145/68 H 06/15/24 19:51 Pulse Oximetry 97 06/15/24 19:51 Oxygen Delivery Method Room Air 06/15/24 19:51 Temperature 97.7 F 06/15/24 19:51 Pulse Rate 58 L 06/15/24 21:36 Respiratory Rate 18 06/15/24 21:36 Blood Pressure 129/73 06/15/24 21:36 Pulse Oximetry 95 06/15/24 21:36 Oxygen Delivery Method Room Air 06/15/24 19:51 Medical Decision Making MDM Narrative Medical decision making narrative: This 83-year-old female who had an epidural steroid injection yesterday due to chronic low back pain with radicular pain presents for evaluation of a headache that started yesterday. She also had approximately 8 episodes of diarrhea between yesterday and today that has since resolved. She has no thunderclap presentation of the headache, focal neurologic symptoms although she does state that she had migraine headaches in the past and has some squiggly lines in her l eft field of vision. Her neuroexam is normal. CT scan of the brain was ordered and is negative for acute findings. She was medicated with IV fluids due to the diarrhea as well as Zofran for nausea and 15 mg of IV Toradol for the headache. Routine labs are reviewed. Her white count is elevated at 22 which is likely related to the steroid injection she had yesterday as she has not had a fever a nd there is no sign of meningitis or other illness. Electrolytes are reviewed. She does have a mild elevation in her BUN and creatinine. I do not have any prior labs for comparison purposes. On reevaluation she states her headache is starting to resolve but is not gone and she would like something else for pain to get ahead of it because she cannot go home with this headache. She will be given a dose of [place]. She does receive routine prescriptions for OxyContin for her chronic back pain. She was reevaluated after the [place] and is smiling and alert. She states her headache is almost completely gone and her nausea is completely gone. She will be given a Phenergan to take half of when she gets home later this evening. She was encouraged to drink plenty of fluids and return to the emergency department for worsening symptoms or any concerns. Medical Records Medical records narrative: The [address] [address] [address] Scan Report Signed Patient: MIGUEL A APARICIO MR#: [id number] : 1940 Acct:[id number] Age/Sex: 83 / F ADM Date: 06/15/24 Loc: ER Attending Dr: Ordering Physician: Tri Ag Date of Service: 06/15/24 Procedure(s): CT head/brain wo con Accession Number(s): [id number] cc: AYANNA VICENTE~ [facility] [place] [id number] Patient Name: MIGUEL A APARICIO MRN: [facility]:[id number] date: 1940 Sex: F Assigned Patient Location: ER Current Patient Location: ER Accession/Order Number: [id number] Exam Date: 06/15/2024 20:26 Report Date: 06/15/2024 20:48 At the request of: TRI AG Procedure: CT head/brain wo con EXAMINATION: CT head/brain wo con HISTORY: post procedural headache COMPARISON: None. TECHNIQUE: Head CT without intravenous contrast. Dose reduction techniques were achieved by using: automated exposure control and/or adjustment of mA and /or kV according to patient size and/or use of iterative reconstruction technique. FINDINGS: The ventricles and sulci are within normal limits in size and configuration for age. There is no evidence for acute intracranial hemorrhage. There are no foci of abnormal parenchymal attenuation. There is no mass effect or midline shift. There are no abnormal extraaxial fluid collections. No subdural hygromas. CT/CT head/brain wo con IMPRESSION: Negative for acute hemorrhage or acute intracranial process. Electronically authenticated by: JESUS BOWEN Date: 06/15/2024 20:48 Lab Data Labs: Lab Results 06/15/24 Range/Units 20:04 WBC 22.0 H (4.0-11.0) 10^3/uL RBC 4.21 (4.20-5.40) 10^6/uL Hgb 12.5 (12.0-16.0) g/dL Hct 38.7 (36.0-48.0) % MCV 91.9 (81.0-99.0) fL MCH 29.7 (26.7-34.0) pg MCHC 32.3 (29.9-35.2) g/dL RDW 14.0 (11.0-15.0) % Plt Count 233 (150-450) 10^3/uL MPV 10.6 (9.5-13.5) fL Seg Neuts % (Manual) 35.0 L (43.0-75.0) Lymphocytes % (Manual) 54.0 (20.5-60.0) % Atypical Lymphs % (Man) 8.0 % Monocytes % (Manual) 0.0 L (1.7-12.0) % Eosinophils % (Manual) 2.0 (0.9-7.0) % Basophils % (Manual) 1.0 (0.2-2.0) % Neutrophils # (Manual) 7.70 H (1.4-6.5) 10^3/uL Lymphocytes # (Manual) 11.88 H (1.20-3.80) 10^3/uL Abs Atypical Lymphs Man 1.76 Monocytes # (Manual) 0.00 L (0.30-0.80) 10^3/uL Eosinophils # (Manual) 0.44 (0.00-0.70) 10^3/uL Basophils # (Manual) 0.22 H (0.00-0.10) 10^3/uL Smudge Cells Seen Sodium 143 (136-145) mmol/L Potassium 4.3 (3.5-5.1) mmol/L Chloride 108 H (98-107) mmol/L Carbon Dioxide 28.4 (21.0-32.0) mmol/L Anion Gap 10.9 BUN 31.0 H (7.0-18.0) mg/dL Creatinine 1.42 H (0.55-1.02) mg/dL Est GFR ( Amer) 43 L (>=60 mL/min/1.73m^2) Est GFR (Non-Af Amer) 36 L (>=60 mL/min/1.73m^2) BUN/Creatinine Ratio 21.8 Glucose 140 H (74-106) mg/dL Calcium 9.1 (8.5-10.1) mg/dL Total Bilirubin 0.3 (0.2-1.0) mg/dL AST 25 (15-37) U/L ALT 34 (14-59) U/L Alkaline Phosphatase 103 (46-116) U/L Total Protein 6.9 (6.4-8.2) g/dL Albumin 3.5 (3.4-5.0) g/dL Globulin 3.4 g/dL Albumin/Globulin Ratio 1.0 Discharge Plan Discharge Chief Complaint: Headache Clinical Impression: Headache Patient Disposition: Home, Self-Care Time of Disposition Decision: 21:39 Condition: Good Prescriptions / Home Meds: No Action lisinopril 10 mg tablet 10 mg PO DAILY pregabalin [Lyrica] 225 mg capsule 225 mg PO BID metformin 1,000 mg tablet 1,000 mg PO BID atorvastatin [Lipitor] 20 mg tablet 20 mg PO DAILY venlafaxine [Effexor XR] 75 mg capsule,extended release 24hr 75 mg PO DAILY triamterene-hydrochlorothiazid [Maxzide-25mg] 37.5-25 mg tablet 1 tab PO DAILY ezetimibe [Zetia] 10 mg tablet 10 mg PO DAILY aspirin 81 mg tablet,delayed release (DR/EC) 81 mg PO DAILY levothyroxine [Synthroid] 100 mcg tablet 100 mcg PO DAILY propranolol 60 mg tablet 60 mg PO DAILY multivitamin Tablet 1 tab PO DAILY oxybutynin chloride 5 mg tablet 5 mg PO DAILY oxycodone-acetaminophen 5-325 mg tablet 1 tab PO BID PRN (Reason: pain) zolpidem 5 mg tablet 5 mg PO DAILY B-complex with vitamin C Tablet 1 tab PO DAILY cholecalciferol (vitamin D3) 125 mcg (5,000 unit) capsule 125 mcg PO DAILY Print Language: Romanian Instructions: Acute Headache (ED), General Headache (ED) Referrals: AYANNA VICENTE [Primary Care Provider] - 1 week
[2024-06-15 20:12] LABS: Hematocrit 38.7 % (36.0-48.0); Hemoglobin 12.5 g/dL (12.0-16.0); Mean Corpuscular HGB Conc 32.3 g/dL (29.9-35.2); Mean Corpuscular Hemoglobin 29.7 pg (26.7-34.0); Mean Corpuscular Volume 91.9 fL (81.0-99.0); Mean Platelet Volume 10.6 fL (9.5-13.5); Platelet Count 233 10^3/uL (150-450); Red Blood Count 4.21 10^6/uL (4.20-5.40)
[2024-06-15] MEDS: ONDANSETRON PF 4 MG/2 ML VIAL IV (20:13)
--- OUTSIDE RECORDS SUMMARY | 2024-06-15 20:13 | XMS_ITS | CCD ---
Author Organization [facility] Team Providers Care Fund Director Name Role Phone Ayanna Vicente Primary Care Provider Ayanna Vicente Unavailable Ayanna Vicente Unavailable [phone] Ayanna Vicente Unavailable Ayanna Milner Unavailable DO [...] Other Provider MD Marcio Hernandez Other Provider [phone] DO Loco Velasquez Other Provider MD Elgin Irby Other Provider MD Adali Salamanca Other Provider Beulah, ANP-BC Valarie Other Provider MD Max Paulino Other Provider [phone] MD Faisal Abel Other Provider MD Bertram Garrison Other Provider MD Bobby Guevara Other Provider MD Pietro Chaparro Other Provider MD Bin Rock Other Provider MD Michael Burnett Other Provider BERTA Najera-C Yanira Mane Other Provider MD Salas Winslow Other Provider MD Joss Stoner Other Provider MD Terrie Hua Other Provider MD Chase Glover Other Provider DO Meron Estrada Other Provider Al MD Hasmukh Beck Other Provider DO Felipe Howard Other Provider NATALI Montanez Other Provider DO Santiago Fontaine Other Provider MD Tyson De Los Santos Other Provider Claudia, ALLYSSA Chavez Other Provider Unavailable MD Pietro Corral Other Provider MD Penny Mike Other Provider PABLO Quarles Other Provider DO Gume Macedo Other Provider MD Zohaib Akins II Other Provider DO Ayanna Vicente Attending Provider Ayanna Vicente DO Primary Care Provider Ayanna Vicente DO Unavailable Ayanna Vicente DO Unavailable [phone] DO Ayanna Vicente Primary Care Provider Ayanna Vicente DO Primary Care Provider [phone] Ayanna Vicente DO Unavailable [phone] Ayanna Vicente DO Unavailable DO Ayanna Vicente Primary Care Provider DO Ayanna Vicente Attending Provider MD Francine Lares Attending Provider Ayanna Vicente Primary Care Unavailable PABLO Sheth Attending Provider DO Ayanna Vicente Primary Care Provider DO Ayanna Vicente Attending Provider MD Francine Lares Attending Provider [phone] P[address] Sheth Attending Provider DR AYANNA VICENTE Primary Care Unavailable LAKSHMIPATHY ., NARENDRANATH Attending Abigail vailable VERNONMIPATHKamari ., NARENDRANATH Admitting Abigail vailable Ayanna Vicente Primary Care Physician DO Ayanna Vicente Primary Care Provider DO Ayanna Vicente Attending Provider Junior Butterfield Unavailable Homa Mckeon Unavailable Ayanna Vicente MD Primary Care Provider DO Ayanna Vicente Primary Care Provider DO Ayanna Vicente Attending Provider [phone] JAMES SMITH Attending Unavailable JAMES SMITH Attending Unavailable JAMES SMITH Attending Unavailable RK RANDOLPH Attending Unavailab le DO Ayanna Vicente Primary Care Provider DO Ayanna Vicente Attending Provider [phone] Ayanna Vicente DO Primary Care Provider Ayanna Vicente DO Unavailable Ayanna Vicente DO Unavailable [phone] Sakina DO Izaguirre Primary Care Provider DO Ayanna Vicente Attending Provider [phone] Ayanna Vicente Attending Unavailable Ayanna Vicente Admitting Unavailable Sakina, Ayanna Primary Care Unavailable Ayanna Vicente Attending Unavailable Ayanna Vicente Admitting Unavailable Sakina, Ayanna Primary Care Unavailable Ayanna Vicente Attending Unavailable Ayanna Vicente Admitting Unavailable Sakina, Ayanna Primary Care Unavailable Sakina, Ayanna Admitting Unavailable Sakina, Ayanna Primary Care Unavailable Sakina, Ayanna Attending Unavailable Ayanna Vicente DO Primary Care Provider Ayanna Vicente DO Attending Provider [phone] AYANNA VICENTE Primary Care Unavailable FRANCINE LARES Referring Unavailable AYANNA VICENTE Primary Care Unavailable AYANNA VICENTE Primary Care Unavailable CHAD FREITAS Attending Unavailable AYANNA VICENTE Primary Care Unavailable ZOHAIB GERMAN Attending Unavailable AYANNA VICENTE Primary Care Unavailable FRANCINE LARES Referring Unavailable FRANCINE LARES Attending Unavailable Jefitis , Andrius Vytjose juan Attending Unavailable Giedraitis , Andrius Vytautmaria alejandra Attending Unavailable Giedraitis , Andrius Vytautmaria alejandra Attending Unavailable Allergies Allergy Classification Reported Allergen(s) Allergy Type Date of Onset Reaction(s) Facility Cephalosporins (antibiotic) (1 source) Cephalosporins (Antibiotic) Drug Allergy 02-20-20 04 Hives, Swelling [facility] (20 sources) cefpodoxime; Translations: [Vantin] Drug Allergy 12-24-19 16 Eye swelling (finding) [facility] (20 sources) cepahlosporins Propensity to adverse reactions Unknown Language Learning Class Other (20 sources) Cephalosporins (Antibiotic); Translations: [Cephalosporins] Allergy to substance 02-20-20 04 Hives, Swelling, Swelling (morphologic abnormality), Eye swelling (finding), Unknown [facility] Comment on above: Eyes swelled also (20 sources) cefpodoxime; Translations: [CEFPODOXIME] Drug Allergy 02-17-20 19 Unknown, Other [facility] (1 source) Amoxicillin Drug Allergy 06 [facility] (15 sources) Medicinal cephalosporin and acting as antibacterial agent (FN) Drug allergy Unknown Language Learning Class Other (2 sources) Bacitracin / Neomycin / Polymyxin B Drug Allergy Unknown Language Learning Class Other (12 sources) Bacitracin; Translations: [bacitracin] Drug Allergy 08-12-19 Unknown Reaction [facility] (12 sources) Neomycin; Translations: [neomycin] Drug Allergy 08-12-19 Unknown Reaction [facility] (12 sources) polymyxin B; Translations: [polymyxin B] Allergy to substance 08-12-19 Unknown Reaction [facility] (1 source) cefpodoxime Drug Allergy 04-05-20 [facility] Rep[facility] Medications Current Medications Medication Drug Class(es) Dates Sig (Normalized) Sig (Original) acetaminophen 325 mg / oxyCODONE hydrochloride 5 mg oral tablet (20 sources) Opioid Agonist Start: 02-05-2024 End: 05-11-2024 Oxycodone-Acetamin ophen (Percocet) 5-325 mg tablet Active 1 TAB PO .COMPLEX 60 May 11, 2024 1 tab orally one to two times a day as needed Start: 07-16-2023 oxyCODONE-Acet aminophen 5-325 MG 1 tablet Orally one to two times a day as needed for 30 days Jul, Active Start: 04-15-2023 oxyCODONE-Acet aminophen 5-325 MG 1 tablet Orally one to two times a day as needed for 30 days Apr, Active Start: 01-24-2022 End: 02-05-2024 take 1 tablet by mouth every six hours as needed for pain Oxycodone-Acetaminophen 5-325 mg Tablet Discontinued 1 TAB PO Q6H as needed for Pain 7 January 24, 2022 February 05, 2024 8:06am Start: 01-14-2022 End: 01-24-2022 take 1 tablet by mouth once daily as needed for pain Oxycodone-Acetaminophen 5-325 mg tablet Discontinued 1 TAB PO Daily as needed for Pain January 13, 2022 11:00pm January 24, 2022 2:09pm Start: 10-26-2020 take 1 tablet by jeniffer th every six hours acetaminophen-oxycodone 325 mg-5 mg oral tablet tab(s), Oral, q6hr, Refill(s) 0 Start Date: 10/26/20 Status: Ordered Start: 03-26-2017 End: 04-02-2017 take 1 tablet by mouth every six hours as needed for pain Oxycodone-Acetaminophen 5-325 mg Tablet Discontinued 1 TAB PO Q6H as needed for Pain Scale 1 - 5 40 March 25, 2017 11:00pm April 02, 2017 8:59am Start: 03-13-2017 End: 04-02-2017 take 1 tablet by mouth every four to six hours as needed for pain Oxycodone-Acetaminophen 5-325 mg Tablet Discontinued 1 TAB PO EVERY 4-6 HOURS as needed for Pain March 12, 2017 11:00pm April 02, 2017 8:59am Start: 07-19-2011 OXYCODONE-ACET AMINOPHEN 5-325 mg ORAL tablet as needed. 07/19/2011 Active Comment on above: as needed. ascorbic acid 500 mg oral tablet (20 sources) Vitamin C Start: 10-21-2023 take 1 tablet by mouth once daily Ascorbic Acid (Vitamin C) 500 mg tablet Active 500 MG PO Daily October 20, 2023 11:00pm FreeTextSi tablet Orally Once a day; Note: Source Status: Taking; Provider: Mike Luther ( ) take 1 tablet by jeniffer th every twenty-four hours Vitamin C 500 MG [...] take 1 tablet by mouth once daily Aspirin 81 mg Tablet,Chewable Discontinued 81 MG PO Daily April 01, 2017 11:00pm January 24, 2022 2:09pm Start: 02-20-2004 ASPIRIN 81MG T ABLET Indications: Other specified idiopathic peripheral neuropathy Take one (1) tablet daily . 0 02/20/2004 Active Aspirin 81 mg 1 tablet once a day Active Comment on above: Take one (1) tablet daily . calcium carbonate 1250 mg / cholecalciferol 200 unt oral tablet (20 sources) Vitamin D Start: 01-24-2022 take 1 tablet by mouth once daily in the morning OYSCO 500 + D 500-5 MG-MCG tablet Take 1 tablet by mouth in the morning. 0 01/24/2022 Active Start: 03-13-2017 End: 04-02-2017 take 1 tablet by mouth once daily Calcium Carbonate-Vitamin D3 (Calcium 600 + D(3)) 600 mg(1,500mg) -200 unit Tablet Discontinued 1 TAB PO daily March 12, 2017 11:00pm April 02, 2017 8:58am Calcium Carbonate-Vitamin D3 (Oyster Shell Calcium-Vit D3) 500 mg-5 mcg (200 unit) Tablet (20 sources) Start: 01-24-2022 take 1 tablet by [...] Silver (20 sources) Centrum Silver A ctive CENTRUM SILVER TABLET (10 sources) Start: 02-20-2004 CENTRUM SILVER TABLET Indications: Other specified idiopathic peripheral neuropathy Take one(1) tablet daily. 0 02/20/2004 Active Comment on above: Take one(1) tablet d aily. cholecalciferol 0.125 mg oral capsule (20 sources) Vitamin D Start: 10-21-2023 Cholecalciferol (Vitamin D3) 125 mcg (5,000 unit) capsule Active 5000 UNIT PO As Directed October 20, 2023 11:00pm FreeTextSig: as directed Orally; Note: Source Status: Taking; Provider: Mike Luther ( ) Vitamin D3 125 M CG (5000 UT) as directed Orally Active Vitamin D3 125 M CG (5000 UT) as directed Orally Active dicyclomine hydrochloride 20 mg oral tablet (20 sources) Anticholinergic Start: 04-05-2024 take 1 tablet by mouth twice daily Dicyclomine 20 mg tablet Active 20 MG PO Twice daily April 04, 2024 11:00pm Start: 12-17-2021 take 1 tablet by jeniffer th twice daily as needed Dicyclomine HCl 20 MG 1 tablet Orally TWICE A DAY NEEDED Dec, Not-Taking ezetimibe 10 mg oral tablet (20 sources) Dietary Cholesterol Absorption Inhibitor Start: 03-30-2024 take 1 tablet by mouth once daily Ezetimibe 10 mg tablet Active 0 .ROUTE .COMPLEX March 30, 2024 9:02am TAKE 1 TABLET BY MOUTH ONCE DAILY Start: 03-30-2024 take 1 tablet by jeniffer th once daily Ezetimibe Active 0 .ROUTE .COMPLEX March 30, 2024 9:02am TAKE 1 TABLET BY MOUTH ONCE DAILY Start: 03-30-2024 take 1 tablet by jeniffer th once daily Ezetimibe Active 0 .ROUTE .COMPLEX March 30, 2024 10:02am TAKE 1 TABLET BY MOUTH ONCE DAILY Start: 02-20-2004 End: 03-30-2024 ZETIA 10MG TABLET Indication s: Other specified idiopathic peripheral neuropathy Take one(1) tablet daily. 0 02/20/2004 Active Comment on above: Take one(1) tablet d aily. Glucometer (20 sources) Start: 02-21-20 20 Glucometer Feb, Active hydroCHLOROthiazide 25 mg / triamterene 37.5 mg oral tablet (20 sources) Potassium-sparing Diuretic, Thiazide Diuretic Start: 10-13-19 End: 04-19-20 24 take 0.5 tablet by mouth once daily Triamterene-Hydroc hlorothiazid 37.5-25 mg tablet Active 0 .ROUTE .COMPLEX 45 April 19, 2024 3:16pm TAKE 1/2 (ONE-HALF) OF A TABLET BY MOUTH DAILY Start: 03-13-2017 End: 10-13-2023 take 0.5 tablet by mouth once daily Triamterene-Hydrochlorothiazid 37.5-25 m g tablet Discontinued 0 PO Daily October 12, 2023 11:00pm October 13, 2023 1:09pm take 1/2 tablet by mouth daily triamterene-hydr ochlorothiazide (Maxzide) 75-50 MG tablet 1 (one) time each day at the same time. 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 180 tablet 3 05/17/2024 05/12/2025 Active Start: 12-19-2020 take 400 mg by mouth once daily Plaquenil 400 mg, Oral, Daily, Refills(s) 0 Start Date: 12/19/20 Status: Ordered Start: 03-13-2017 End: 01-13-2022 take 1 tablet by mouth once daily Hydroxychloroquine 200 mg Tablet Discontinued 200 MG PO Daily April 01, 2017 11:00pm January 13, 2022 3:45pm take 1 tablet by jeniffer th twice daily hydroxychloroquine (Plaquenil) 200 MG tablet take 1 tablet (200MG) by ORAL route 2 times every day Oral 0 Active Plaquenil 200 mg 1 tablet twice a day Active Comment on above: Take 400 mg by mouth once daily. 3 ml insulin glargine 100 unt/ml pen injector (20 sources) Insulin Analog Start: 02-10-2024 Insulin Glargine (Lantus Solostar U-100 Insulin) 100 unit/mL (3 mL) insulin pen Active 36 UNIT SUBCUT Every evening February 10, 2024 2:07pm Start: 10-21-2023 End: 02-10-2024 Insulin Glargine (Lantus Génesis ostar U-100 Insulin) 100 unit/mL (3 mL) insulin pen Discontinued 34 UNIT SUBCUT Every evening October 21, 2023 2:50pm February 10, 2024 2:07pm Start: 10-20-2023 End: 10-21-2023 Insulin Glargine (Lantus Génesis ostar U-100 Insulin) 100 unit/mL (3 mL) insulin pen Discontinued 0 .ROUTE .COMPLEX 45 October 20, 2023 1:21pm October 21, 2023 2:51pm INJECT 46 UNITS SUBCUTANEOUSLY AT BEDTIME Start: 10-20-2023 End: 10-20-2023 Insulin Glargine (Lantus Génesis ostar U-100 Insulin) 100 unit/mL (3 mL) insulin pen Discontinued 46 UNIT SUBCUT Daily at bedtime October 19, 2023 11:00pm October 20, 2023 1:21pm Start: 10-02-2022 Lantus SoloSta r 100 UNIT/ML [...] 10 UNIT SUBCUT Daily at bedtime March 12, 2017 11:00pm April 02, 2017 8:58am insulin glargine (LANTUS) 100 unit/mL injection Inject subcutaneously. 21 units Active insulin glargine (Lantus) 100 UNIT/ML injection Subcutaneous 0 Active Lantus SoloStar 100 UNIT/ML inject 46 units subcutaneously AT BEDTIME quantity sufficient for 90 days Active Lantus SoloStar 100 UNIT/ML inject 30 units subcutaneously AT BEDTIME Active Lantus SoloStar 100 UNIT/ML 30 units Subcutaneous qd hs Active Comment on above: Inject subcutaneousl y. 21 units ketoconazole 20 mg/ml topical cream (2 sources) Azole Antifungal ketoconazole (NIZOral) 2 % cream 1 application to affected area on the feet topically two times daily for 30 day(s) 0 Active lisinopril 10 mg oral tablet (20 sources) Angiotensin Converting Enzyme Inhibitor Start: 10-21-19 End: 04-19-20 take 1 tablet by mouth once daily Lisinopril 10 mg tablet Active 10 MG PO Daily April 19, 2024 3:15pm Start: 10-13-2023 End: 10-21-2023 take 1 tablet by mouth once daily Lisinopril 10 mg tablet Discontinued 0 .ROUTE .COMPLEX October 13, 2023 1:08pm October 21, 2023 2:51pm TAKE 1 TABLET BY MOUTH DAILY Start: 05-09-2011 End: 10-13-2023 take 1 tablet by mouth once daily Lisinopril 10 mg Tablet Discontinued 10 MG PO Daily January 23, 2022 11:00pm October 13, 2023 1:08pm Start: 02-20-2004 take 10 mg by mouth once daily ZESTRIL 20MG TABLET Indications: Other specified idiopathic peripheral neuropathy Take 10 mg by mouth once daily. 0 02/20/2004 Active Start: 02-20-2004 End: 04-18-2022 lisinopril (ZESTRIL, PRINIVI L) 20 mg tablet Comment on above: Take one(1) tablet d aily. Take 10 mg by mouth once daily. loperamide hydrochloride 2 mg oral tablet (20 sources) Opioid Agonist Start: 09-13-2021 take 1 tablet by mouth once as needed Imodium A-D 2 MG 1 tablet as needed Orally PRN prn Sep, Active Start: 09-13-2021 take 1 tablet by jeniffer every six hours Imodium A-D 2 MG 1 tablet as needed Orally Four times a day Sep, Active metFORMIN hydrochloride 1000 mg oral tablet (20 sources) Biguanide Start: 12-19-2020 End: 04-19-2024 take 1 tablet by mouth twice daily at mealtime METFORMIN 1,000 mg ORAL tablet Take 1,000 mg by mouth twice daily with meals. 03/12/2021 Active Start: 04-02-2017 End: 10-21-2023 take 2 tablets by mouth twice daily at mealtime Metformin 500 mg Tablet Discontinued 1000 MG PO Twice daily with meals January 23, 2022 11:00pm October 21, 2023 12:47pm Start: 04-02-2017 End: 10-21-2023 take 1000 mg by mouth twice daily at mealtime Metformin Discontinued 1000 MG PO Twice daily with meals January 23, 2022 11:00pm October 21, 2023 12:47pm Start: 05-09-2011 End: 04-02-2017 take 1 tablet by mouth twice daily Metformin 1,000 mg Tablet Discontinued 1000 MG PO Twice daily March 12, 2017 11:00pm April 02, 2017 8:58am Comment on above: Take 1,000 mg by [...] With Folic Acid (Thera) 400 mcg Tablet (20 sources) Start: 2 take 1 tablet by [...] January 24, 2022 3:09pm Multivitamins and Minerals (2 sources) Start: 10-26-2020 Multivitamins and Minerals Refill(s) 0 Start Date: 10/26/20 Status: Ordered nitrofurantoin, macrocrystals 25 mg / nitrofurantoin, monohydrate 75 mg oral capsule (20 sources) Nitrofuran Antibacterial Start: 05-11-2024 take 1 capsule by mouth twice daily at mealtime Nitrofurantoin Monohyd/M-Cryst (Macrobid) 100 mg capsule Active 100 MG PO Twice daily 24 01May 10, 2024 11:00pm must administer with a meal/food Start: 10-20-2023 End: 01-12-2024 take 1 capsule by mouth twice daily at mealtime Nitrofurantoin Monohyd/M-Cryst (Macrobid) 100 mg capsule Discontinued 100 MG PO Twice daily October 20, 2023 3:08pm January 12, 2024 1:24pm must administer with a meal/food oxybutynin chloride 5 mg oral tablet (20 sources) Cholinergic Muscarinic Antagonist Start: 02-11-2023 take 1 tablet by mouth three times daily as needed oxybutynin 5 mg Tab See Instructions, can take 1 tab po up to TID PRN incontinence, # 90 tab(s), Refills(s) 3, Pharmacy: [id number], 178, cm, 02/11/23 11:43:00 EDT, Height/Length Dosing, 106.9, kg, 02/11/23 11:43:00 EDT, Weight Dosing Start Date: 02/11/23 Status: Ordered Start: 10-02-2021 take 1 tablet by jeniffer th every twenty-four hours Ditropan XL 10 MG 1 tablet Orally Once a day Sep, Not-Taking pregabalin 225 mg oral capsule (20 sources) Start: 06-09-2017 End: 03-30-2024 take 1 capsule by mouth twice daily LYRICA 225 mg ORAL capsule Take 225 mg by mouth twice daily. 03/12/2021 Active Start: 04-02-2017 End: 10-13-2023 take 3 capsules by mouth twice daily Pregabalin 75 mg Capsule Discontinued 225 MG PO Twice daily 180 January 23, 2022 11:00pm October 13, 2023 1:10pm Start: 07-19-2011 End: 04-02-2017 take 1 capsule by mouth twice daily Pregabalin (Lyrica) 225 mg Capsule Discontinued 225 MG PO Twice daily March 12, 2017 11:00pm April 02, 2017 8:59am Comment on above: Take 225 mg by mouth twice daily. Triamterene-HCTZ 37.5 mg-25 mg (3 sources) take 0.5 tablet by mouth once daily Triamterene-HCTZ 37.5 mg-25 mg TAKE 1/2 (ONE-HALF) OF A TABLET BY MOUTH ONCE DAILY for 90 Active trospium chloride 20 mg oral tablet (8 sources) Cholinergic Muscarinic Antagonist Start: 02-24-20 End: 02-19-20 take 1 tablet by mouth twice daily Trospium 20 mg tablet Active 20 MG PO Twice daily March 07, 2024 11:00pm 24 hr venlafaxine 75 mg extended release oral capsule (20 sources) Serotonin and Norepinephrine Reuptake Inhibitor Start: 02-07-20 take 1 capsule by mouth once daily venlafaxine ER (EFFEXOR XR) 75 mg 24 hr capsule Take 75 mg by mouth once daily. 02/06/2022 Active Start: 01-01-2022 End: 01-24-2022 take 1 capsule by mouth once daily Venlafaxine 75 mg capsule,extended release 24hr Discontinued 75 MG PO Daily January 12, 2022 11:00pm January 24, 2022 2:09pm Comment on above: Take 75 mg by mouth once daily. Vitamin B Complex (20 sources) Vitamin B Comple x Not-Taking Vitamin B Comple x Active Vitamin B Complex oral capsu le (2 sources) Start: 10-26-2020 Vitamin B Comp stewart oral capsule Oral, Daily, Refill(s) 0 Start Date: 10/26/20 Status: Ordered Completed/Discontinued Medications Medication Drug Class(es) Dates Sig (Normalized) Sig (Original) acetaminophen 325 mg oral tablet (20 sources) Start: 01-15-2022 End: 01-24-2022 take 1-3 tablets by mouth every six hours as needed for pain Acetaminophen 325 mg Tablet Discontinued 650 MG PO Q6H as needed for Pain Scale 1 - 3 or fever 0 January 14, 2022 11:00pm January 24, 2022 2:09pm Start: 01-15-2022 End: 01-24-2022 take 650 mg by mouth every six hours Acetaminophen Discontinued 650 MG PO Q6H 0 January 14, 2022 11:00pm January 24, 2022 2:09pm Start: 04-02-2017 End: 01-13-2022 take 1 tablet by mouth every four hours as needed for pain Acetaminophen 325 mg Tablet Discontinued 325 MG PO Q4H as needed for Pain April 01, 2017 11:00pm January 13, 2022 3:42pm Start: 04-02-2017 End: 01-13-2022 take 2 tablets by mouth every four hours as needed for pain Acetaminophen 325 mg Tablet Discontinued 650 MG PO Q4H as needed for Pain April 01, 2017 11:00pm January 13, 2022 3:42pm Start: 04-02-2017 End: 01-13-2022 take 650 mg by mouth every four hours Acetaminophen Discontinued 650 MG PO Q4H April 01, 2017 11:00pm January 13, 2022 3:42pm acetaminophen 325 mg / HYDROcodone bitartrate 5 mg oral tablet (20 sources) Opioid Agonist Start: 04-02-2017 End: 01-14-2022 take 2 tablets by mouth every four hours as needed for pain Hydrocodone-Acetaminophen 5-325 mg Tablet Discontinued 2 TAB PO Q4H as needed for Severe Pain April 01, 2017 11:00pm January 14, 2022 10:19am amoxicillin 500 mg oral capsule (9 sources) Penicillin-class Antibacterial Start: 01-12-2024 End: 02-05-2024 take 2 capsules by mouth every twelve hours Amoxicillin 500 mg capsule Discontinued 1000 MG PO Every 12 hours 40 January 11, 2024 11:00pm February 05, 2024 7:16am Start: 01-12-2024 End: 02-05-2024 take 1000 mg by mouth every twelve hours Amoxicillin Discontinued 1000 MG PO Every 12 hours 40 January 11, 2024 11:00pm February 05, 2024 7:16am atorvastatin 20 mg oral tablet (20 sources) HMG-CoA Reductase Inhibitor Start: 10-13-2023 End: 10-21-2023 take 1 tablet by mouth once daily Atorvastatin 20 mg tablet Discontinued 0 .ROUTE .COMPLEX October 13, 2023 1:08pm October 21, 2023 2:22pm TAKE 1 TABLET BY MOUTH DAILY Start: 10-13-2023 End: 10-21-2023 take 1 tablet by mouth once daily Atorvastatin Discontinued 0 .ROUTE .COMPLEX October 13, 2023 1:08pm October 21, 2023 2:22pm TAKE 1 TABLET BY MOUTH DAILY Start: 10-13-2023 End: 10-21-2023 take 1 tablet by mouth once daily Atorvastatin Discontinued 0 .ROUTE .COMPLEX 90 October 13, 2023 2:08pm October 21, 2023 3:22pm TAKE 1 TABLET BY MOUTH DAILY Start: 10-13-2023 take 1 tablet by jeniffer th once daily Atorvastatin Active 0 .ROUTE .COMPLEX 90 October 13, 2023 2:08pm TAKE 1 TABLET BY MOUTH DAILY Start: 02-20-2004 End: 04-19-2024 atorvastatin (LIPITOR) 20 mg tablet Indications: Other specified idiopathic peripheral neuropathy Take [...] Calcium-Vit D3) 500 mg(1,250mg) -200 unit Tablet (20 sources) Start: 04-02-2017 End: 01-24-2022 take 1 [...] 02, 2017 12:00am January 24, 2022 3:09pm ciprofloxacin 500 mg oral tablet (20 sources) Quinolone Antimicrobial Start: 03-17-2024 End: 05-11-2024 take 1 tablet by mouth twice daily Ciprofloxacin Hcl (Cipro) 500 mg tablet Discontinued 500 MG PO Twice daily 02 05April 04, 2024 11:00pm May 11, 2024 1:47pm Start: 02-10-2024 End: 03-08-2024 take 1 tablet by mouth twice daily Ciprofloxacin Hcl (Cipro) 250 mg tablet Discontinued 250 MG PO Twice daily 10 February 09, 2024 11:00pm March 08, 2024 1:47pm Start: 10-17-2023 End: 10-20-2023 take 1 tablet by mouth twice daily Ciprofloxacin Hcl 500 mg tablet Discontinued 500 MG PO Twice daily 02 05October 16, 2023 11:00pm October 20, 2023 8:49am Start: 05-20-2018 take 1 tablet by jeniffer th every twelve hours Cipro 500 MG 1 tablet Orally bid for 10 day(s) May, Active citalopram 40 mg oral tablet (20 sources) Serotonin Reuptake Inhibitor Start: 03-13-2017 End: 01-13-2022 take 1 tablet by mouth once daily in the morning Citalopram 40 mg Tablet Discontinued 40 MG PO Every morning April 01, 2017 11:00pm January 13, 2022 3:43pm Start: 02-20-2004 End: 04-04-2022 CELEXA 20MG TABLET Indicatio ns: Other specified idiopathic peripheral neuropathy Take one(1) tablet daily. 0 02/20/2004 04/04/2022 Discontinued (Discontinued by another Health Care Provider) Comment on above: Take one(1) tablet d aily. cyclobenzaprine hydrochloride 5 mg oral tablet (20 sources) Muscle Relaxant Start: 04-02-20 End: 01-14-20 take 1 tablet by mouth every eight hours as needed for muscle spasms Cyclobenzaprine 5 mg Tablet Discontinued 5 MG PO Q8H as needed for Muscle Spasm 60 April 01, 2017 11:00pm January 13, 2022 3:43pm docusate sodium 100 mg oral capsule (20 sources) Start: 04-02-20 End: 01-14-20 take 1 capsule by mouth twice daily Docusate Sodium 100 mg Capsule Discontinued 100 MG PO Twice daily 60 April 01, 2017 11:00pm January 13, 2022 3:43pm docusate sodium 50 mg / sennosides, care home 8.6 mg oral tablet (20 sources) Start: 03-26-20 End: 04-02-20 take 1 tablet by mouth twice daily Sennosides-Docusate Sodium (Dok Plus) 8.6-50 mg Tablet Discontinued 1 TAB PO Twice daily 40 March 25, 2017 11:00pm April 02, 2017 8:59am 72 hr fentaNYL 0.025 mg/hr transdermal system (20 sources) Opioid Agonist Start: 03-26-20 End: 04-02-20 Fentanyl 25 mcg/hr Patch 72 Hour Discontinued 25 MCG TRANSDERML Every 72 hours 5 March 25, 2017 11:00pm April 02, 2017 8:58am ferrous sulfate 324 mg delayed release oral tablet (20 sources) Start: 03-26-20 End: 01-14-20 take 1 tablet by mouth twice daily Ferrous Sulfate 324 mg (65 mg iron) Tablet,Delayed Release (Dr/Ec) Discontinued 324 MG PO Twice daily 60 April 01, 2017 11:00pm January 13, 2022 3:44pm furosemide 20 mg oral tablet (20 sources) Loop Diuretic Start: 01-14-20 End: 01-16-20 take 10 mg by mouth once daily Furosemide 20 mg tablet Discontinued 10 MG PO Daily at 08January 13, 2022 3:48pm January 15, 2022 11:05am Start: 01-13-2022 End: 01-15-2022 take 10 mg by mouth once daily Furosemide Discontinued 10 MG PO Daily at 08January 13, 2022 3:48pm January 15, 2022 11:05am Start: 02-20-2004 End: 01-13-2022 LASIX 20MG TABLET Indication s: Other specified idiopathic peripheral neuropathy Take one(1) tablet daily. 0 02/20/2004 Active Comment on above: Take one(1) tablet d aily. Insulin Aspart U-100 (Novolog Flexpen U-100 Insulin) 100 unit/mL (3 mL) Insulin Pen (20 sources) Start: 01-15-2022 End: 01-15-2022 Insulin Aspart [...] Insulin) 100 unit/mL (3 mL) insulin pen (20 sources) Start: 01-15-2022 End: 01-24-2022 Insulin Aspart U-100 (Novolo g Flexpen U-100 Insulin) 100 unit/mL (3 mL) insulin pen Discontinued 0 UNITS SUBCUT 3X/Day with meals and bedtime January 15, 2022 4:37pm January 24, 2022 2:09pm Please contact the information source for Protocol details. Start: 01-15-2022 End: 01-24-2022 Insulin Aspart U-100 [...] 15, 2022 5:37pm January 24, 2022 3:09pm 3 ml insulin detemir 100 unt/ml pen injector (20 sources) Insulin Analog Start: 01-24-2022 End: 10-21-2023 Insulin Detemir U-100 (Levemir Flextouch U-100 Insuln) 100 unit/mL (3 mL) Insulin Pen Discontinued 25 UNITS SUBCUT Daily at bedtime 7.5 January 23, 2022 11:00pm October 21, 2023 2:11pm Start: 04-02-2017 End: 05-02-2017 Insulin Detemir U-100 (Levem ir Flextouch U100 Insulin) 100 unit/mL (3 mL) Insulin Pen Discontinued 20 UNIT SUBCUT Daily at bedtime 6 April 01, 2017 11:00pm April 30, 2017 11:00pm May 01, 2017 11:03pm Insulin Glargine 100 unit/mL Cartridge (1 source) Start: 01-13-2022 End: 01-24-2022 inject 21 [IU] by subcutaneous injection once daily at bedtime Insulin Glargine 100 unit/mL Cartridge Discontinued 21 UNIT SUBCUT Daily at bedtime January 12, 2022 11:00pm January 24, 2022 2:09pm levoFLOXacin 750 mg oral tablet (20 sources) Quinolone Antimicrobial Start: 01-15-2022 End: 01-24-2022 take 1 tablet by mouth once daily Levofloxacin 750 mg tablet Discontinued 750 MG PO Daily 07 14January 14, 2022 11:00pm January 24, 2022 2:09pm next dose 01/17 levothyroxine sodium 0.1 mg oral tablet (20 sources) l-Thyroxine Start: 10-21-2023 End: 04-19-2024 take 1 tablet by mouth once daily in the morning Levothyroxine 100 mcg tablet Discontinued 100 MCG PO Daily April 19, 2024 2:57pm April 19, 2024 3:18pm TAKE 1 TABLET BY MOUTH EVERY MORNING ON AN EMPTY STOMACH DO NOT EAT OR DRINK FOR 30-45 MIN AFTER TAKING Start: 10-26-2020 take 1 tablet by jeniffer th once daily Synthroid 100 mcg Tab 100 mcg = 1 tab(s), Oral, Daily, Refills(s) 0 Start Date: 10/26/20 Status: Ordered Start: 03-13-2017 End: 10-21-2023 take 1 tablet by mouth once daily Levothyroxine 75 mcg Tablet Discontinued 75 MCG PO Daily at 0730 30 30 January 23, 2022 11:00pm October 21, 2023 2:14pm Start: 06-10-2011 LEVOTHYROXINE 88 mcg ORAL tablet 06/10/2011 Active take 1 tablet by jeniffer th once daily levothyroxine (Synthroid) 50 MCG tablet take 1 tablet by ORAL route every day Oral 0 Active take 1 tablet by jeniffer th once daily in the morning Levothyroxine Sodium 100 mcg TAKE 1 TABLET BY MOUTH EVERY MORNING ON AN EMPTY STOMACH Active lidocaine 0.05 mg/mg medicated patch (20 sources) Antiarrhythmic, Amide Local Anesthetic Start: 04-02-2017 End: 01-13-2022 Lidocaine 5 % Adhesive Patch,Medicated Discontinued 2 EACH TOPICAL Daily April 01, 2017 11:00pm January 13, 2022 3:45pm melatonin 5 mg oral tablet (20 sources) Start: 01-15-2022 End: 10-21-2023 take 2 tablets by mouth once daily at bedtime Melatonin 5 mg Tablet Discontinued 10 MG PO Daily at bedtime 60 January 23, 2022 11:00pm October 21, 2023 2:12pm Start: 01-15-2022 End: 10-21-2023 take 10 mg by mouth once daily at bedtime Melatonin Discontinued 10 MG PO Daily at bedtime 60 January 23, 2022 11:00pm October 21, 2023 2:12pm End: 02-07-2023 MELATONIN ORAL Take by mouth . 0 02/07/2023 Discontinued Melatonin 10 MG as directed Orally Active MELATONIN ORAL T joce by mouth. 0 Active Comment on above: Take by mouth. Multivitamin (Multiple Vitamins) Tablet (20 sources) Start: 03-13-2017 End: 04-02-2017 take 1 tablet by mouth once daily Multivitamin (Multiple Vitamins) Tablet Discontinued 1 TAB PO Daily March 12, 2017 11:00pm April 02, 2017 8:59am Start: 03-13-2017 End: 04-02-2017 take 1 tablet by mouth once daily Multivitamin (Multiple Vitamins) Tablet Discontinued 1 TAB PO Daily March 13, 2017 12:00am April 02, 2017 9:59am 24 hr propranolol hydrochloride 60 mg extended release oral capsule (20 sources) beta-Adrenergic Jose Carlos Start: 07-12-2023 take 1 capsule by mouth every twenty-four hours in the morning propranolol LA (Inderal LA) 60 MG 24 hr capsule Take 60 mg by mouth in the morning. 0 07/12/2023 Active Start: 02-20-2004 End: 04-19-2024 INDERAL LA 60MG CAPSULE SA I ndications: Other specified idiopathic peripheral neuropathy Take one(1) tablet daily. 0 02/20/2004 Active Comment on above: Take one(1) tablet d aily. Sennosides (Senna Lax) 8.6 mg Tablet (20 sources) Start: 04-02-2017 End: 01-13-2022 Sennosides (Senna Lax) 8.6 mg Tablet Discontinued 2 EACH PO DAILY@12 as needed for If no BM in 2 days April 01, 2017 11:00pm January 13, 2022 3:47pm [...] mg / trimethoprim 160 mg oral tablet (20 sources) Dihydrofolate Reductase Inhibitor Antibacterial, Sulfonamide Antimicrobial Start: 03-26-2017 End: 01-13-2022 take 1 tablet by mouth twice daily Sulfamethoxazole-Trimethoprim 800-160 mg Tablet Discontinued 1 TAB PO Twice daily April 01, 2017 11:00pm January 13, 2022 3:47pm traMADol hydrochloride 50 mg oral tablet (20 sources) Opioid Agonist Start: 01-15-2022 End: 01-15-2022 take 1 tablet by mouth every eight hours as needed for pain Tramadol 50 mg Tablet Discontinued 50 MG PO Q8H as needed for Pain Scale 4 - 7 0 January 14, 2022 11:00pm January 15, 2022 4:36pm triamcinolone acetonide 40 mg/ml injectable suspension (20 sources) Corticosteroid Start: 11-01-2022 Kenalog-40 Oct, 20 m g Start: 04-22-2018 Kenalog -40 mg Apr, 40 mg TRIAMTERENE-HCTZ 37.5-25 TB (2 sources) Start: 02-20-2004 End: 04-04-2022 TRIAMTERENE-HCTZ 37.5-25 TB Indications: Other specified idiopathic peripheral neuropathy Take one(1) tablet daily. 0 02/20/2004 04/04/2022 Discontinued (Discontinued by another Health Care Provider) Start: 02-20-2004 TRIAMTERENE-HC TZ 37.5-25 TB Indications: Other specified idiopathic peripheral neuropathy Take one(1) tablet daily. 0 02/20/2004 Active Comment on above: Take one(1) tablet d aily. zolpidem tartrate 5 mg oral tablet (20 sources) gamma-Aminobutyri c Acid-ergic Agonist Start: 10-16-2023 End: 05-07-2024 take 1 tablet by mouth once daily at bedtime Zolpidem 5 mg tablet Discontinued 5 MG PO Daily at bedtime 90 90 October 16, 2023 11:43am May 07, 2024 12:01pm Start: 10-02-2022 take 1 tablet by jeniffer th once daily at bedtime Ambien 5 MG [...] tablet by mouth once daily at bedtime as needed for sleep Zolpidem (Ambien) 5 mg tablet Discontinued 5 MG PO Daily at bedtime as needed for Sleep January 13, 2022 3:48pm January 15, 2022 11:05am Comment on above: Take 5 mg by mouth. Problems Active Problems Problem Classification Problem Date Documented Da te Episodic/Chronic Acquired foot deformities (20 sources) Acquired hammer toe of right foot; Translations: [Other hammer toe(s) (acquired), right foot] Onset: 12-27-2021 Resolved: 12-27-2021 Chronic Acquired foot deformities (20 sources) Acquired hammer toe of left foot; Translations: [Other hammer toe(s) (acquired), left foot] Onset: 12-27-2021 Resolved: 12-27-2021 Chronic Acute and unspecified renal failure (20 sources) Injury of kidney; Translations: [Acute kidney failure, unspecified] 01-13-2022 Episodic Administrative/social admission (20 sources) Other reduced mobility; Translations: [Impaired mobility and activities of daily living] 01-16-2022 Episodic Deficiency and other anemia (20 sources) Anemia; Translations: [Anemia, unspecified] 03-27-2017 Episodic Diabetes mellitus with complications (20 sources) Type II diabetes mellitus uncontrolled; Translations: [Type 2 diabetes mellitus with hyperglycemia] Onset: 07-14-2009 Resolved: 03-19-2022 Chronic Diabetes mellitus without complication (20 sources) Diabetes mellitus; Translations: [Type 2 diabetes mellitus without complications] Onset: 05-06-2024 03-27-2017 Chronic Diseases of white blood cells (20 sources) Lymphocytosis; Translations: [Lymphocytosis (symptomatic)] Onset: 04-04-2021 Resolved: 04-04-2021 Chronic Disorders of lipid metabolism (20 sources) Hyperlipidemia; Translations: [Hyperlipidemia, unspecified] Onset: 04-04-2021 Resolved: 10-02-2021 Chronic Diverticulosis and diverticulitis (20 sources) Diverticulitis; Translations: [Diverticulitis of intestine, part unspecified, without perforation or abscess without bleeding] Onset: 04-04-2021 Resolved: 09-13-2021 Chronic E Codes: Fall (20 sources) Fall; Translations: [Unspecified fall, initial encounter] 01-14-2022 Episodic Essential hypertension (20 sources) Hypertensive disorder; Translations: [Essential (primary) hypertension] Onset: 07-14-2009 Resolved: 03-19-2022 Chronic Fracture of upper limb (20 sources) Fracture of unspecified carpal bone, right wrist, initial encounter for closed fracture; Translations: [Fracture at wrist and/or hand level] Onset: 02-06-2022 Resolved: 02-06-2022 Episodic Genitourinary symptoms and ill-defined conditions (12 sources) Mixed incontinence; Translations: [Genuine stress incontinence] Onset: 12-06-2022 Chronic Genitourinary symptoms and ill-defined conditions (4 sources) Increased frequency of urination; Translations: [Poor stream of urine] 07-31-2021 Episodic Headache; including migraine (20 sources) Migraine; Translations: [Migraine, unspecified, not intractable, without status migrainosus] Chronic Headache; including migraine (2 sources) Headache 12-19-2020 Episodic Immunizations and screening for infectious disease (3 sources) Encounter for immunization; Translations: [Flu vaccine need Z23] Onset: 04-04-2021 Resolved: 04-04-2021 Episodic Leukemias (20 sources) Chronic lymphoid leukemia, disease; Translations: [Chronic lymphocytic leukemia of B-cell type not having achieved remission] Onset: 05-26-2024 Chronic Lymphadenitis (1 source) Axillary lymphadenopathy; Translations: [Localized enlarged lymph nodes] Episodic Menopausal disorders (2 sources) Atrophy of vagina; Translations: [Postmenopausal atrophic vaginitis] Onset: 12-06-2022 12-06-2022 Chronic Miscellaneous mental health disorders (4 sources) Chronic insomnia; Translations: [Psychophysiologic insomnia] 05-12-2024 Chronic Mood disorders (20 sources) Major depressive disorder, single episode, unspecified; Translations: [Depression] Onset: 04-04-2021 Resolved: 02-06-2022 Chronic Mycoses (17 sources) Onychomycosis; Translations: [Tinea unguium] Onset: 12-08-2022 12-08-2022 Episodic Nonmalignant breast conditions (1 source) Breast signs and symptoms; Translations: [Other signs and symptoms in breast] Episodic Nutritional deficiencies (20 sources) Vitamin D deficiency; Translations: [Vitamin D deficiency, unspecified] 03-27-2017 Chronic Osteoarthritis (5 sources) Arthritis; Translations: [Osteoarthritis of right hip joint] 12-19-2020 Chronic Other acquired deformities (20 sources) Deformity of foot; Translations: [Unspecified acquired deformity of unspecified lower leg] 03-08-2024 Episodic Other aftercare (5 sources) 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; Translations: [Long-term (current) use of other medications] Onset: 02-06-2022 Resolved: 02-06-2022 Episodic Other aftercare (10 sources) Long-term current use of drug therapy; Translations: [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] 10-21-2023 Episodic Other and unspecified benign neoplasm (20 sources) History of polyp of colon; Translations: [Personal history of colonic polyps] Episodic Other and unspecified benign neoplasm (1 source) Benign lipomatous neoplasm, unspecified Episodic Other circulatory disease (20 sources) Low blood pressure; Translations: [Hypotension, unspecified] 01-13-2022 Episodic Other circulatory disease (1 source) Hypotension, unspecified; Translations: [Hypotension, unspecified] 01-15-2022 Episodic Other connective tissue disease (2 sources) Artificial knee joint present; Translations: [Presence of unspecified artificial knee joint] Onset: 12-06-2022 12-06-2022 Chronic Other connective tissue disease (20 sources) Fibromyalgia; Translations: [Fibromyalgia] 12-19-2020 Episodic Other connective tissue disease (8 sources) Rheumatism, unspecified; Translations: [Rheumatism, unspecified and fibrositis] Onset: 04-04-2021 Resolved: 10-02-2021 Episodic Other connective tissue disease (12 sources) Rheumatism; Translations: [Rheumatism, unspecified] 10-26-2020 Episodic Other connective tissue disease (1 [...] diseases of bladder and urethra (2 sources) Detrusor overactivity; Translations: [Overactive bladder] Onset: 02-11-2023 Chronic Other diseases of bladder and urethra (4 sources) Overactive bladder; Translations: [Overactive bladder] Onset: 12-06-2022 07-31-2021 Chronic Other ear and sense organ disorders (1 source) Otalgia, right ear; Translations: [Otalgia, unspecified] Episodic Other gastrointestinal disorders (20 sources) Irritable bowel syndrome; Translations: [Irritable bowel syndrome without diarrhea] Chronic Other gastrointestinal disorders (20 sources) Irritable bowel syndrome with diarrhea; Translations: [Irritable bowel syndrome with diarrhea] 04-05-2024 Chronic Other gastrointestinal disorders (4 sources) Irritable bowel syndrome without diarrhea Onset: 09-13-2021 Resolved: 10-02-2021 Chronic Other gastrointestinal disorders (7 sources) Irritable bowel syndrome with diarrhea; Translations: [Irritable bowel syndrome] Onset: 12-17-2021 Resolved: 12-17-2021 Chronic Other gastrointestinal [...] injuries and conditions due to external causes (20 sources) Minor head injury; Translations: [Unspecified injury of head, initial encounter] 01-13-2022 Episodic Other injuries and conditions due to external causes (20 sources) Abrasion; Translations: [Other injury of unspecified [...] Translations: [Pleurodynia] Episodic Other lower respiratory disease (2 sources) Nodule of lung 10-26-2020 Episodic Other lower respiratory disease (1 source) Pleurodynia Episodic Other nervous system disorders (20 sources) Neuropathy; Translations: [Polyneuropathy, unspecified] 10-26-2020 Chronic Other nervous system disorders (20 sources) Polyneuropathy, unspecified; Translations: [Mononeuritis of unspecified site] Onset: 04-04-2021 Resolved: 03-19-2022 Chronic Other nervous system disorders (7 sources) Peripheral nerve disease ; Translations: [Polyneuropathy, unspecified] 03-08-2024 Chronic Other nervous system disorders (20 sources) Nervous system symptoms; Translations: [Other abnormalities of gait and mobility] Episodic Other nervous system disorders (2 sources) Other abnormalities of gait and mobility Onset: 02-06-2022 Resolved: 02-06-2022 Episodic Other nervous system disorders (20 sources) Postoperative pain ; Translations: [Other acute postprocedural pain] 03-27-2017 Episodic Other non-traumatic joint disorders (2 sources) Sacroiliac disorder 10-26-2020 Episodic Other non-traumatic joint disorders (1 source) Pain in unspecified hip Episodic Other non-traumatic joint disorders (1 source) Pain in right hip Episodic Other non-traumatic joint disorders (6 sources) Pain in left hip; Translations: [Pain in joint, pelvic region and thigh] Onset: 05-26-2024 Episodic Other non-traumatic joint disorders (4 sources) Hip pain; Translations: [Pain in left hip] 05-11-2024 Episodic Other non-traumatic joint disorders (4 sources) Pain in left knee; Translations: [Pain in joint, lower leg] 05-11-2024 Episodic Other nutritional; endocrine; and metabolic disorders (20 sources) Obese class I; Translations: [Body mass index (BMI) 31.0-31.9, adult] Chronic Other nutritional; endocrine; and metabolic disorders (1 source) Body mass index (BMI) 31.0-31.9, adult Chronic Other nutritional; endocrine; and metabolic disorders (2 sources) Body mass index 30+ - obesity; Translations: [Body mass index (BMI) 32.0-32.9, adult] 05-12-2024 Chronic Other nutritional; endocrine; and metabolic disorders (2 sources) Body mass index (BMI) 32.0-32.9, adult; Translations: [Body Mass Index 32.0-32.9, adult] 05-12-2024 Chronic Other nutritional; endocrine; and metabolic disorders (2 sources) Abnormal weight loss; Translations: [Weight loss R63.4] Onset: 04-04-2021 Resolved: 04-04-2021 Episodic Other screening for suspected conditions (not mental disorders or infectious disease) (20 sources) Encounter for screening mammogram for malignant neoplasm of breast; Translations: [Other specified abnormal findings of blood chemistry] Onset: 04-04-2021 Resolved: 02-06-2022 Episodic Otitis media and related conditions (13 sources) Otitis media of right ear; Translations: [Otitis media, unspecified, right ear] 01-12-2024 Episodic Residual codes; unclassified (2 sources) Sedative, hypnotic AND/OR anxiolytic-induced sleep disorder; Translations: [Other sleep disorders] 05-12-2024 Chronic Residual codes; unclassified (2 sources) Other sleep disorders; Translations: [Other sleep disturbances] 05-12-2024 Chronic Residual codes; unclassified (20 sources) Insomnia; Translations: [Insomnia, unspecified] 01-16-2022 Episodic Residual codes; unclassified (12 sources) Insomnia, unspecified; Translations: [Insomnia, unspecified] Onset: 04-04-2021 Resolved: 02-06-2022 Episodic Residual codes; unclassified (5 sources) Edema, unspecified; Translations: [Peripheral edema R60.9] Onset: 04-04-2021 Resolved: 02-06-2022 Episodic Residual codes; unclassified (20 sources) History of operative procedure on lumbosacral spinal structure; Translations: [Other specified postprocedural states] 03-27-2017 Episodic Residual codes; unclassified (12 sources) Peripheral edema; Translations: [Localized edema] 10-26-2020 Episodic Residual codes; unclassified (2 sources) Localized edema; Translations: [Edema] 10-21-2023 Episodic Residual codes; unclassified (4 sources) Memory impairment; Translations: [Other amnesia] 05-11-2024 Episodic Residual codes; unclassified (4 sources) Other amnesia; Translations: [Memory loss] 05-11-2024 Episodic Rheumatoid arthritis and related disease (2 sources) Rheumatoid arthritis; Translations: [Rheumatoid arthritis, unspecified] Onset: 06-04-2011 12-06-2022 Chronic Septicemia (except in labor) (20 sources) Sepsis; Translations: [Sepsis, unspecified organism] 01-13-2022 Episodic Spondylosis; intervertebral disc disorders; other back problems (20 sources) Lumbosacral spondylosis without myelopathy; Translations: [Other spondylosis with radiculopathy, lumbar region] Onset: 06-18-2021 Resolved: 02-06-2022 Chronic Spondylosis; intervertebral disc disorders; other back problems (20 sources) Low back pain; Translations: [Cervicalgia] Onset: 04-04-2021 Resolved: 09-13-2021 Episodic Superficial injury; contusion (20 sources) Hematoma of [...] Classification Problem Date Documented Da te Episodic/Chronic Deficiency and other anemia (1 source) Anemia, unspecified Onset: 10-02-2021 Resolved: 10-02-2021 Episodic Other acquired deformities (1 source) Unspecified [...] habit Onset: 09-13-2021 Resolved: 09-13-2021 Episodic Other nervous system disorders (2 sources) Notalgia paresthetica; Translations: [Paresthesia of skin] Onset: 12-06-2022 12-06-2022 Episodic Other nervous system disorders (2 sources) Unsteady when standing; Translations: [Unsteadiness on feet] Onset: 12-06-2022 12-06-2022 Episodic Other non-traumatic joint disorders (17 sources) Pain in right knee; Translations: [Pain in joint, lower leg] Onset: 07-24-2011 Resolved: 02-06-2022 Episodic Other non-traumatic joint disorders (1 source) Pain in unspecified knee; Translations: [Knee pain M25.569] Onset: 04-04-2021 Resolved: 04-04-2021 Episodic Unclassified (2 sources) Cough R05.9 Onset: 10-01-2021 Resolved: 10-02-2021 Unclassified (1 source) Lumbar pain M54.50 Results Test Name Value Interpretation Reference Range Facility CBC W Auto Differential pane l (Bld)on 05-26-2024 Basophils (Bld) [#/Vol] 0.00 10*3/uL Normal <0.11 [facility] Comment on above: Order Comment: Speci men Type: BLOOD SPECIMEN Ordering Facility: [facility] Address: [address] [place] [address] Performed By: #### 2 532-0, 06790-9 #### [facility] CLIA [id number] [address] [place] [address]6578 Basophils/100 WBC (Bld) 0.0 % Normal [facility] Comment on above: Order Comment: Speci men Type: BLOOD SPECIMEN Ordering Facility: [facility] Address: [address] [place] [address] Performed By: #### 2 532-0, #### [facility] CLIA [id number] [address] [place] [address]2325 Differential cell count method Nom (Bld) Manual Normal [facility] Comment on above: Order Comment: Speci men Type: BLOOD SPECIMEN Ordering Facility: [facility] Address: [address] [place] [address] Performed By: #### 2 532-0, #### [facility] CLIA [id number] [address] [place] [address] 69485 Eosinophils (Bld) [#/Vol] 0.19 10*3/uL Normal <0.46 [facility] Comment on above: Order Comment: Speci men Type: BLOOD SPECIMEN Ordering Facility: [facility] Address: [address] [place] [address] Performed By: #### 2 532-0, 28852-9 #### [facility] CLIA [id number] [address] [place] [address] 67187 Eosinophils/100 WBC (Bld) 1.0 % Normal [facility] Comment on above: Order Comment: Speci men Type: BLOOD SPECIMEN Ordering Facility: [facility] Address: [address] [place] [address] Performed By: #### 2 532-0, #### [facility] CLIA [id number] [address] [place] [address]2 Erythrocyte distribution width (RBC) [Ratio] 14.2 % Normal 11.5-15.0 [facility] Comment on above: Order Comment: Speci men Type: BLOOD SPECIMEN Ordering Facility: [facility] Address: [address] [place] [address] Performed By: #### 2 532-0, #### [facility] CLIA [id number] [address] [place] [address]6716 Hematocrit (Bld) [Volume fraction] 38.4 % Normal 36.0-46.0 [facility] Comment on above: Order Comment: Speci men Type: BLOOD SPECIMEN Ordering Facility: [facility] Address: [address] [place] [address] Performed By: #### 2 532-0, #### [facility] CLIA [id number] [address] [place] [address]40 Hemoglobin (Bld) [Mass/Vol] 12.7 g/dL Normal 11.5-15.5 [facility] Comment on above: Order Comment: Speci men Type: BLOOD SPECIMEN Ordering Facility: [facility] Address: [address] [place] [address] Performed By: #### 2 532-0, #### [facility] CLIA [id number] [address] [place] [address] 24026 Lymphocytes (Bld) [#/Vol] 14.61 10*3/uL High 1.00-4. 00 [facility] Comment on above: Order Comment: Speci men Type: BLOOD SPECIMEN Ordering Facility: [facility] Address: [address] [place] [address] Performed By: #### 2 532-0, #### [facility] CLIA [id number] [address] [place] [address] 59246 Lymphocytes/100 WBC (Bld) 76.0 % Normal [facility] Comment on above: Order Comment: Speci men Type: BLOOD SPECIMEN Ordering Facility: [facility] Address: [address] [place] [address] Performed By: #### 2 532-0, #### [facility] CLIA [id number] [address] [place] [address] 01768 MCH (RBC) [Entitic mass] 30.0 pg Normal 26.0-34.0 [facility] Comment on above: Order Comment: Speci men Type: BLOOD SPECIMEN Ordering Facility: [facility] Address: [address] [place] [address] Performed By: #### 2 532-0, #### [facility] CLIA [id number] [address] [place] [address] 80128 MCHC (RBC) [Mass/Vol] 33.1 g/dL Normal 30.5-36.0 [facility] Comment on above: Order Comment: Speci men Type: BLOOD SPECIMEN Ordering Facility: [facility] Address: [address] [place] [address] Performed By: #### 2 532-0, #### [facility] CLIA [id number] [address] [place] [address] 67908 MCV (RBC) [Entitic vol] 90.8 fL Normal 80.0-100.0 [facility] Comment on above: Order Comment: Speci men Type: BLOOD SPECIMEN Ordering Facility: [facility] Address: [address] [place] [address] Performed By: #### 2 532-0, #### [facility] CLIA [id number] [address] [place] [address] 54514 Monocytes (Bld) [#/Vol] 0.19 10*3/uL Normal <0.87 [facility] Comment on above: Order Comment: Speci men Type: BLOOD SPECIMEN Ordering Facility: [facility] Address: [address] [place] [address] Performed By: #### 2 532-0, #### [facility] CLIA [id number] [address] [place] [address] 73062 Monocytes/100 WBC (Bld) 1.0 % Normal [facility] Comment on above: Order Comment: Speci men Type: BLOOD SPECIMEN Ordering Facility: [facility] Address: [address] [place] [address] Performed By: #### 2 532-0, #### [facility] CLIA [id number] [address] [place] [address] 81002 Neutrophils (Bld) [#/Vol] 4.23 10*3/uL Normal 1.45-7.5 0 [facility] Comment on above: Order Comment: Speci men Type: BLOOD SPECIMEN Ordering Facility: [facility] Address: [address] [place] [address] Performed By: #### 2 532-0, #### [facility] CLIA [id number] [address] [place] [address] 05468 Neutrophils/100 WBC (Bld) 22.0 % Normal [facility] Comment on above: Order Comment: Speci men Type: BLOOD SPECIMEN Ordering Facility: [facility] Address: [address] [place] [address] Performed By: #### 2 532-0, #### [facility] CLIA [id number] [address] [place] [address] 40103 Nucleated RBC (Bld) [#/Vol] 10*3/uL Normal <0.01 [facility] Comment on above: Order Comment: Speci men Type: BLOOD SPECIMEN Ordering Facility: [facility] Address: [facility] [place] [address] Performed By: #### 2 532-0, #### [facility] CLIA [id number] [address] [place] [address] 08957 Nucleated RBC/100 WBC (Bld) [Ratio] 0.0 /100 WBC Normal [facility] Comment on above: Order Comment: Speci men Type: BLOOD SPECIMEN Ordering Facility: [facility] Address: [address] [place] [id number] Performed By: #### 2 532-0, #### [facility] CLIA [id number] [address] [place] [address] 77644 Ovalocytes LM Ql (Bld) Few Normal Cl [facility] Comment on above: Order Comment: Speci men Type: BLOOD SPECIMEN Ordering Facility: [facility] Address: [address] [place], [place] [address] Performed By: #### 2 532-0, #### [facility] CLIA [id number] [address] [place] [address] 88071 Platelet mean volume (Bld) [Entitic vol] 10.4 fL Normal 9.0-12.7 [facility] Comment on above: Order Comment: Speci men Type: BLOOD SPECIMEN Ordering Facility: [facility] Address: [address] [place] [id number] Performed By: #### 2 532-0, #### [facility] CLIA [id number] [address] [place] [address] 43237 Platelets (Bld) [#/Vol] 244 10*3/uL Normal 150-400 [facility] Comment on above: Order Comment: Speci men Type: BLOOD SPECIMEN Ordering Facility: [facility] Address: [address] [place] [address] Performed By: #### 2 532-0, #### [facility] CLIA [id number] [address] [place] [address] 13727 Platelets Estimate (Bld) [#/Vol] Adequate Normal [facility] Comment on above: Order Comment: Speci men Type: BLOOD SPECIMEN Ordering Facility: [facility] Address: [address] [place] [address] Performed By: #### 2 532-0, #### [facility] CLIA [id number] [address] [place] [address] Polychromasia LM Ql (Bld) Slight Normal [facility] Comment on above: Order Comment: Speci men Type: BLOOD SPECIMEN Ordering Facility: [facility] Address: [address] [place] [address] Performed By: #### 2 532-0, 96869-6 #### [facility] CLIA [id number] [address] [place] [address] 29573 RBC (Bld) [#/Vol] 4.23 10*6/uL Normal 3.90-5.20 [facility] Comment on above: Order Comment: Speci men Type: BLOOD SPECIMEN Ordering Facility: [facility] Address: [address] [place] [address] Performed By: #### 2 532-0, 39921-3 #### [facility] CLIA [id number] [address] [place] [address] 69907 RED CELL MORPH Reviewed: see result s of individual morphologies Normal [facility] Comment on above: Order Comment: Speci men Type: BLOOD SPECIMEN Ordering Facility: [facility] Address: [address] [place] [address] Performed By: #### 2 532-0, 71952-6 #### [facility] CLIA [id number] [address] [place] [address] 42483 WBC (Bld) [#/Vol] 19.22 10*3/uL High 3.70-11.00 [facility] Comment on above: Order Comment: Speci men Type: BLOOD SPECIMEN Ordering Facility: [facility] Address: [address] [place] [address] Result Comment: No c lot detected.Results checked and verified. Performed By: #### 2 532-0, 75160-6 #### [facility] CLIA [id number] [address] [place] [address] 98140 CNOVSPon 05-26-2024 CNOVSP Visit (SP) Office ([facility]) KATHY WASHBURN ([id number]) 1940 F Date Time Provider Department 05/26/24 2:00 PM CHAD FREITAS During your visit today, we recorded the following information about you: Temperature Pulse Respiration Blood pressure 97 degrees 70/minute 16/minute 92/51 Weight Height 105.3 kg 1.727 m Chad Freitas MD 05/26/2024 2:41 PM Signed PATIENT NAME: Kathy Washburn CLINIC NO.: [id number] ATTENDING PHYSICIAN: Chad Freitas MD DATE OF SERVICE: 05/25/24 Some of the elements of this note have been copied from previous progress note dated 08/08/23. All the information has been reviewed carefully. Diagnosis: Binet Stage A CLL Treatment History: HPI: Kathy Washburn is a 83 year old year old female here for follow up. Doing very well and denies any fevers and or chills. He is going in a cruise with his son 05/25/24: - Doing well - No major complaints - C/o night sweats - Did mammogram last week at [facility]. - Scheduled to see Retail Sales Merchandiser PAST MEDICAL HISTORY Diagnosis Date Depression Diabetes mellitus (HCC) Hypertension Hypothyroidism Inflammatory bowel diseases (IBD) Leukocytosis Mixed hyperlipidemia Neuropathy Rheumatism, unspecified Social History Tobacco Use Smoking status: Former Current packs/day: 0.00 Average packs/day: 1.5 packs/day for 20.0 years (30.0 ttl pk-yrs) Types: Cigarettes Start date: 07/14/1979 Quit date: 07/14/1999 Years since quittin.8 Smokeless tobacco: Never Vaping Use Vaping status: Never Used Substance Use Topics Alcohol use: Not Currently [...] of hands/feet. No weakness. PHYSICAL EXAMINATION: BP 92/51 Pulse 70 Temp (Src) 97 (Temporal) Resp 16 Ht 5' 7.992 (1.73m) Wt 232 lb 3.2 oz (105.3kg) SpO2 91% BMI 35.31 kg/(m2). Wt 102.7 kg (226 lb 6.4 [...] : Deferred LABS: Glucose (mg/dL) Date Value 08/08/2023 207 Potassium (mmol/L) Date Value 08/08/2023 4.9 Sodium (mmol/L) Date Value 08/08/2023 140 Chloride (mmol/L) Date Value 08/08/2023 103 CO2 (mmol/L) Date Value 08/08/2023 28 Creatinine (mg/dL) Date Value 08/08/2023 1.33 BUN (mg/dL) Date Value 08/08/2023 46 Anion Gap (mmol/L) Date Value 08/08/2023 9 Calcium, Total (mg/dL) Date Value 08/08/2023 10.1 Protein, Total (g/dL) Date Value 08/08/2023 7.5 Albumin (g/dL) Date Value 08/08/2023 4.4 Bilirubin, Total (mg/dL) Date Value 08/08/2023 0.3 Alkaline Phosphatase (U/L) Date Value 08/08/2023 121 AST (U/L) Date Value 08/08/2023 29 ALT (U/L) Date Value 08/08/2023 30 WBC Date Value Ref Range Status 05/26/2024 19.22 (H) 3.70 - 11.00 k/uL Preliminary Comment: No clot detected.Results checked and verified. RBC Date Value Ref Range Status 05/26 (more content not included)... Normal [facility] Comprehensive metabolic 2000 panelOrdered By: Malka Galvez on 05-26-2024 Albumin [Mass/Vol] 4.1 g/dL 3.9 - 4.9 g/dL [facility] ALP [Catalytic activity/Vol] 107 U/L 34 - 123 U/L [facility] ALT [Catalytic activity/Vol] 21 U/L 7 - 38 U/L [facility] Anion gap [Moles/Vol] 11 mmol/L 8 - 15 mmol/L [facility] AST [Catalytic activity/Vol] 23 U/L 13 - 35 U/L [facility] Bilirubin [Mass/Vol] 0.2 mg/dL 0.2 - 1 .3 mg/dL [facility] Calcium [Mass/Vol] 9.3 mg/dL 8.5 - 10. 2 mg/dL [facility] Chloride [Moles/Vol] 105 mmol/L 98 - 10 7 mmol/L [facility] CO2 [Moles/Vol] 26 mmol/L 22 - 30 mmol/L [facility] Creatinine [Mass/Vol] 1.20 mg/dL High 0.58 - 0.96 mg/dL [facility] GFR/1.73 sq M.predicted among non-blacks MDRD (S/P/Bld) [Vol rate/Area] 46 mL/min/{1.73_m2} Low - PINF [facility] Comment on above: Estimated Glomerular Filtration Rate (eGFR) is calculated using the 2020 CKD-EPI creatinine equation. This equation utilizes serum creatinine, sex, and age as parameters. The creatinine assay has traceable calibration to isotope dilution-mass spectrometry. Refer to KDIGO guidelines for clinical interpretation. In patients with unstable renal function, e.g. those with acute kidney injury, the eGFR may not accurately reflect actual GFR. Glucose [Mass/Vol] 231 mg/dL High 74 - 99 mg/dL [facility] Comment on above: The [place] Diabete s Association (ADA) provides guidance for cutoff values [...] Standards of Medical Care in Diabetes 2016, [place] [employer] Association. Diabetes Care. 2016.39(Suppl 1). Interpretation and review of laboratory results Abnormal [facility] Potassium [Moles/Vol] 5.3 mmol/L High 3.7 - 5.1 mmol/L [facility] Protein [Mass/Vol] 6.9 g/dL 6.3 - 8.0 g/dL [facility] Sodium [Moles/Vol] 142 mmol/L 136 - 144 mmol/L [facility] Urea nitrogen [Mass/Vol] 36 mg/dL High 7 - 21 mg/d L [facility] Comprehensive metabolic 2000 panelon 05-26-2024 Albumin [Mass/Vol] 4.1 g/dL Normal 3.9-4.9 [facility] Comment on above: Order Comment: Speci men Type: BLOOD SPECIMEN Ordering Facility: [facility] Address: [address] [place] [address] Performed By: #### 2 532-0, 38501-2 #### [facility] CLIA [id number] [address] [place] [address] 25280 ALP [Catalytic activity/Vol] 107 U/L Normal 34-123 [facility] Comment on above: Order Comment: Speci men Type: BLOOD SPECIMEN Ordering Facility: [facility] Address: [address] [place] [address] Performed By: #### 2 532-0, #### [facility] CLIA [id number] [address] [place] [address] 39975 ALT [Catalytic activity/Vol] 21 U/L Normal 7-38 [facility] Comment on above: Order Comment: Speci men Type: BLOOD SPECIMEN Ordering Facility: [facility] Address: [address] [place] [address] Performed By: #### 2 532-0, 95790-6 #### [facility] CLIA [id number] [address] [place] [address] 20609 Anion gap [Moles/Vol] 11 mmol/L Normal 8-15 [facility] Comment on above: Order Comment: Speci men Type: BLOOD SPECIMEN Ordering Facility: [facility] Address: [address] [place] [address] Performed By: #### 2 532-0, 21068-1 #### [facility] CLIA [id number] [address] [place] [address] 63020 AST [Catalytic activity/Vol] 23 U/L Normal 13-35 [facility] Comment on above: Order Comment: Speci men Type: BLOOD SPECIMEN Ordering Facility: [facility] Address: [address] [place] [address] Performed By: #### 2 532-0, 09628-3 #### [facility] CLIA [id number] [address] [place] [address] Bilirubin [Mass/Vol] 0.2 mg/dL Normal 0.2-1.3 [facility] Comment on above: Order Comment: Speci men Type: BLOOD SPECIMEN Ordering Facility: [facility] Address: [address] [place] [address] Performed By: #### 2 532-0, #### [facility] CLIA [id number] [address] [place] [address] 00967 Calcium [Mass/Vol] 9.3 mg/dL Normal 8.5-10.2 [facility] Comment on above: Order Comment: Speci men Type: BLOOD SPECIMEN Ordering Facility: [facility] Address: [address] [place], [place] [address] Performed By: #### 2 532-0, #### [facility] CLIA [id number] [address] [place] [address] 98820 Chloride [Moles/Vol] 105 mmol/L Normal 98-107 [facility] Comment on above: Order Comment: Speci men Type: BLOOD SPECIMEN Ordering Facility: [facility] Address: [address] [place] [address] Performed By: #### 2 532-0, #### [facility] CLIA [id number] [address] [place] [address] 44838 CO2 [Moles/Vol] 26 mmol/L Normal 22-30 [facility] Comment on above: Order Comment: Speci men Type: BLOOD SPECIMEN Ordering Facility: [facility] Address: [address] [place] [address] Performed By: #### 2 532-0, #### [facility] CLIA [id number] [address] [place] [address] 58697 Creatinine [Mass/Vol] 1.20 mg/dL High 0.58-0.96 [facility] Comment on above: Order Comment: Speci men Type: BLOOD SPECIMEN Ordering Facility: [facility] Address: [address] [place] [address] Performed By: #### 2 532-0, 40397-9 #### [facility] CLIA [id number] [address] [place] [address] 73508 Creatinine and Glomerular filtration rate.predicted panel (S/P/Bld) 46 mL/min/1.73m??? Low >=60 [facility] Comment on above: Order Comment: Ha oropeza Type: BLOOD SPECIMEN Ordering Facility: [facility] Address: [address] [place] [address] Result Comment: Aimee mated Glomerular Filtration Rate [...] reflect actual GFR. Performed By: #### 2 532-0, 69908-3 #### [facility] CLIA [id number] [address] [place] [address] 23501 Glucose [Mass/Vol] 231 mg/dL High 74-99 [facility] Comment on above: Order Comment: Ha oropeza Type: BLOOD SPECIMEN Ordering Facility: [facility] Address: [address] [place] [address] Result Comment: The [place] Diabetes Association (ADA) provides guidance for cutoff [...] Standards of Medical Care in Diabetes 2016, [place] Diabetes Association. Diabetes Care. 2016.39(Suppl 1). Performed By: #### 2 532-0, 95920-9 #### [facility] CLIA [id number] [address] [place] [address] Potassium [Moles/Vol] 5.3 mmol/L High 3.7-5.1 [facility] Comment on above: Order Comment: Speci men Type: BLOOD SPECIMEN Ordering Facility: [facility] Address: [address] [place] [address] Performed By: #### 2 532-0, #### [facility] CLIA [id number] [address] [place] [address] 23451 Protein [Mass/Vol] 6.9 g/dL Normal 6.3-8.0 [facility] Comment on above: Order Comment: Speci men Type: BLOOD SPECIMEN Ordering Facility: [facility] Address: [address] [place] [address] Performed By: #### 2 532-0, 84568-2 #### [facility] CLIA [id number] [address] [place] [address] 78122 Sodium [Moles/Vol] 142 mmol/L Normal 136-144 [facility] Comment on above: Order Comment: Speci men Type: BLOOD SPECIMEN Ordering Facility: [facility] Address: [address] [place] [address] Performed By: #### 2 532-0, 49469-6 #### [facility] CLIA [id number] [address] [place] [address] 43678 Urea nitrogen [Mass/Vol] 36 mg/dL High 7-21 [facility] Comment on above: Order Comment: Speci men Type: BLOOD SPECIMEN Ordering Facility: [facility] Address: [address] [place] [address] Performed By: #### 2 532-0, 00663-2 #### [facility] CLIA [id number] [address] [place] [address] 24335 LACTATE DEHYDROGENASEon 05-14 LDH [Catalytic activity/Vol] 184 U/L 135 - 214 U/L [facility] LDH SerPl-cCncon 05-26-2024 LDH [Catalytic activity/Vol] 184 U/L Normal 135-214 [facility] Comment on above: Order Comment: Speci men Type: BLOOD SPECIMEN Ordering Facility: [facility] Address: [address] [place] [address] Performed By: #### 2 532-0, 89150-8 #### [facility] CLIA [id number] [address] [place] [address] LDH [Catalytic activity/Vol] on 05-26-2024 Interpretation and review of laboratory results Normal [facility] - Chemistry and C hemistry - challengeon 05-26-2024 Albumin [Mass/Vol] 4.1 g/dL 3.9-4.9 [facility] ALP [Catalytic activity/Vol] 107 U/L 34-123 [facility] ALT [Catalytic activity/Vol] 21 U/L 7-38 [facility] AST [Catalytic activity/Vol] 23 U/L 13-35 [facility] Bilirubin [Mass/Vol] 0.2 mg/dL 0.2-1.3 [facility] Calcium [Mass/Vol] 9.3 mg/dL 8.5-10.2 [facility] Chloride [Moles/Vol] 105 mmol/L 98-107 [facility] CO2 [Moles/Vol] 26 mmol/L 22-30 [facility] Creatinine [Mass/Vol] 1.20 mg/dL High 0.58-0.96 [facility] Glucose [Mass/Vol] 231 mg/dL High 74-99 [facility] Comment on above: The [place] Diabete s Association (ADA) provides guidance for cutoff values for fasting glucose and random glucose. The ADA defines fasting as no caloric intake for at least 8 hours. Fasting plasma glucose results between 100 to 125 mg/dL indicate increased risk for diabetes (prediabetes).Fasting plasma glucose results greater than or equal to 126 mg/dL meet the criteria for diagnosis of diabetes. In the absence of unequivocal hyperglycemia, results should be confirmed by repeat testing. In a patient with classic symptoms of hyperglycemia or hyperglycemic crisis, random plasma glucose results greater than or equal to 200 mg/dL meet the criteria for diagnosis of diabetes.Reference: Standards of Medical Care in Diabetes 2016, [place] Diabetes Association. Diabetes Care. 2016.39(Suppl 1). LDH [Catalytic activity/Vol] 184 U/L 135-214 [facility] Potassium [Moles/Vol] 5.3 mmol/L High 3.7-5.1 [facility] Sodium [Moles/Vol] 142 mmol/L 136-144 [facility] Urea nitrogen [Mass/Vol] 36 mg/dL High 7-21 [facility] No Panel Informationon 05-26 Estimated GFR (CKD-EPI) 46 mL/min/1.73m??? Low >=60 [facility] Comment on above: Estimated Glomerular Filtration Rate (eGFR) is calculated using the 2020 CKD-EPI creatinine equation. This equation utilizes serum creatinine, sex, and age as parameters. The creatinine assay has traceable calibration to isotope dilution-mass spectrometry. Refer to KDIGO guidelines for clinical interpretation. In patients with unstable renal function, e.g. those with acute kidney injury, the eGFR may not accurately reflect actual GFR. Protein [Mass/volume] in Ser um or Plasmaon 05-26-2024 Protein [Mass/Vol] Protein [Mass/volume ] in Serum or Plasma 6.3-8.0 [facility] Serum or plasma anion gap de terminationon 05-26-2024 Anion gap [Moles/Vol] Serum or plasma an ion gap determination 8-15 [facility] X-ray reportOrdered By: Teddy Arndt on 05-26-2024 Study report [facility] [place] [address] XRay Report Signed Patient: Kathy Washburn MR#: [id number] : 1940 Acct:[id number] Age/Sex: 83 / F ADM Date: 4 Loc: XD [facility]: [facility] Dr: Ayanna Vicente DO Copies to: Ayanna Vicente DO~ Ordering Provider: Ayanna Vicente DO Date of Service: 05/26/24 XR/XR hip LT min 2V(w/wo pelvis)*: M25.552 - Pain in left hip ([id number]) XR/XR knee LT 4V*: M25.552 - Pain in left hip 2 views LEFT plain film COMPARISON: 04/24/23 HISTORY: Lateral LEFT hip pain with radiation to the knee ACUTE FINDINGS: None DEGENERATIVE CHANGE: Similar LEFT hip degeneration with marginal spurring. No subchondral bony collapse or AVN. Similar large greater trochanter spurring. SOFT TISSUE FINDINGS: Unremarkable JOINT EFFUSION: None POSTOP CHANGES: None BONY MINERALIZATION: Adequate XR/XR hip LT min 2V(w/wo pelvis)* IMPRESSION: Similar degenerative change 4 views LEFT knee LEFT knee arthroplasty. No hardware failure. Small joint effusion. Adequate alignment. No acute bony findings. Degeneration of the proximal tibiofibular articulation. Unremarkable soft tissues. IMPRESSION: Uncomplicated LEFT knee arthroplasty. Impression dictated by: Stanford Arndt M.D.05/26/2024 4:55 PM Dictation Location: [place] [address] Transcribed By: [facility] 05/26/241654 Dictated By: Stanford Arndt DO 05/26/241652 Signed By: 05/26/24 1655 [facility] XR knee LT 4V*on 05-26-2024 XR knee LT 4V* [facility] [place] [address] XRay Report Signed Patient: Kathy Washburn MR#: [id number] : 1940 Acct:[id number] Age/Sex: 83 / F ADM Date: 05/26/24 Loc: XD Room: Type: [facility] Attending Dr: Ayanna Vicente DO Copies to: Ayanna Vicente DO Ordering Provider: Ayanna Vicente DO Date of Service: 05/26/24 XR/XR hip LT min 2V(w/wo pelvis)*: M25.552 - Pain in left hip ([id number]) XR/XR knee LT 4V*: M25.552 - Pain in left hip 2 views LEFT plain film COMPARISON: 04/24/23 HISTORY: Lateral LEFT hip pain with radiation to the knee ACUTE FINDINGS: None DEGENERATIVE CHANGE: Similar LEFT hip degeneration with marginal spurring. No subchondral bony collapse or AVN. Similar large greater trochanter spurring. SOFT TISSUE FINDINGS: Unremarkable JOINT EFFUSION: None POSTOP CHANGES: None BONY MINERALIZATION: Adequate XR/XR hip LT min 2V(w/wo pelvis)* IMPRESSION: Similar degenerative change 4 views LEFT knee LEFT knee arthroplasty. No hardware failure. Small joint effusion. Adequate alignment. No acute bony findings. Degeneration of the proximal tibiofibular articulation. Unremarkable soft tissues. IMPRESSION: Uncomplicated LEFT knee arthroplasty. Impression dictated by: Stanford Arndt M.D.05/26/2024 4:55 PM Dictation Location: [place] [address] Transcribed By: [facility] 05/26/241654 Dictated By: Stanford Arndt DO 05/26/241652 Signed By: 05/26/241654 Normal [facility] MM screening mammo BI w/CADo n 05-18-2024 MM screening mammo BI w/CAD [facility] [place] [address] [place] [address] Mammography Report Signed Patient: Kathy Washburn MR#: [id number] : 1940 Acct:[id number] Age/Sex: 83 / F ADM Date: 05/18/24 Loc: [place] Room: Type: [facility] Attending Dr: Ayanna Vicente DO Copies to: Ayanna Vicente DO Ordering Provider: Ayanna Vicente DO Date of Service: 05/18/24 MM/MM screening mammo BI w/CAD: Z12.31 - Encounter for screening mammogram for malignant ... BILATERAL Screening Full Field digital mammogram with 3-D imaging. Full field digital CC and MLO imaging performed. CAD utilized. COMPARISON: 08/29/2022 HISTORY: Annual screening BREAST COMPOSITION: Scattered fibroglandular densities of the breast parenchyma identified BREAST CALCIFICATIONS: Benign calcifications present. VASCULAR CALCIFICATIONS: None ARCHITECTURAL DISTORTION: None BREAST NODULE: None AXILLARY LYMPH NODES: Normal POSTSURGICAL CHANGES: None MM/MM screening mammo BI w/CAD IMPRESSION: No mammographic evidence of malignancy. Routine follow-up recommended in one year. RESULT CODE: 2 Benign Findings(s) DENSITY CODE: 2 (approximately 25-50% glandular) FOLLOW UP: 1YR THE FALSE-NEGATIVE RATE OF MAMMOGRAPHY IS APPROXIMATELY 10%. IMAGING OF A PALPABLE ABNORMALITY MUST BE BASED ON CLINICAL GROUNDS. PATIENT WAS ENTERED INTO A REMINDER SYSTEM WITH A TARGET DUE DATE FOR THE NEXT MAMMOGRAM. Impression dictated by: Stanford Arndt M.D.05/18/2024 3:23 PM Dictation Location: [facility] Transcribed By: [facility] 05/18/24 1523 Dictated By: Stanford Arndt DO 05/18/24 1459 Signed By: 05/18/24 1523 Normal [facility] CNOVon 05-17-2024 CNOV Office Visit (RHEUAV ) KATHY WASHBURN ([id number]) 1940 F Date Time Provider Department 05/17/24 1:00 PM ZOHAIB GERMAN RHEUALogan During your visit today, we recorded the following information about you: Pulse Blood pressure Weight Height 62/minute 117/75 103.4 kg 1.727 m Zohaib German MD 05/17/2024 1:34 PM Signed [facility] Outpatient [facility] Date of Service: 05/17/2024 Patient: Kathy Washburn Medical Record: [id number] Primary Care Physician: Ayanna Vicente DO Last Rheumatology visit: None at [facility] Referring Provider: No referring provider defined for this encounter. History of Present Illness Kathy Washburn is a 83 year old White female who presents on 05/17/2024 for an in-person visit for evaluation of Joint Pain. HISTORY OF PRESENT ILLNESS Patient presents with complaints of joint pain and generalized myalgia pain. The patient had been under my care for osteoarthritis and fibromyalgia remotely with . She was lost to follow-up more than 3 years ago. She had been on treatment with hydroxychloroquine previously for her joint problems. She carries a past medical history of type 2 diabetes, hyperlipidemia, hypertension, hypothyroidism and neuropathy. She states that she has run out of the hydroxychloroquine sometime ago and has been experiencing increased stiffness and pain in her fingers and hands, shoulders more so on the right than the left, the left hip and both knees. In terms of the left hip he is status post spine surgery in the remote past and this seems to be interrelated with her hip pain. With her knees as she has had bilateral knee pain despite having both knees replaced. Morning stiffness is about 30 to 45 minutes. She is experiencing global myalgia based pain despite being on Lyrica and Effexor. She is treated for diabetic neuropathy with the Lyrica and Effexor was for depression but these 2 can overlap for fibromyalgia pain management. She states that her most recent hemoglobin A1c was still elevated at 8.5 and is on escalating doses of insulin. She does have an upcoming eye exam as a routine. She is currently being treated for UTI with Macrobid and has several more days to complete that course. Otherwise her general health has been relatively stable. Patient-Entered Data PAIN EVALUATION 05/17/2024 1256 Pain Level: 6 Pain Location: Generalized PROMIS Assessments 07/19/2022 04/18/2022 PROMIS Assessments Physical Health Percentile 53 53 Mental Health Percentile 43 43 Pain Score 5 3 RAPID 3 [place] Activities of Daily Living No Data Dress self? - Get in and out of bed? - Walk outdoors? - Wash and dry body? - Get in and out of car? - RAPID 3 Disease Activity Weighed Score Levels: 0 - 1: Near Remission 1.3 - 2.0: Low Severity 2.3 - 4.0: Moderate Severity 4.3 - 10.0: High Severity Review of Systems Review of Systems CONSTITUTION: Negative for: Weight loss or gain, Fever. Chills, Night sweats HEENT: Negative for: Nosebleeds, Mouth sores, Trouble swallowing, Dry mouth RESPIRATORY: Negative for: Cough, Shortness of breath, Pain with breathing, Coughing up blood GASTROINTESTINAL: Negative for: Melena, Diarrhea, Abdominal pain, Heartburn, MUSCULOSKELETAL: Positive for: Arthralgias and Myalgias Negative for: Muscle weakness, Joint swelling and Morning Joint Stiffness NEUROLOGICAL: Positive for: Numbness Negative for: Headaches and Memory loss SKIN: Negative for: Rashes, Sun sensitive rashes, Skin color changes, Hair loss, Nail changes EYES: Negative for: Eye pain, Eye redness, Visual disturbance, Eye dryness CARDIOVASCULAR: Negative for: Chest pain, Leg swelling, Arrhythmia, Presyncope GENITOURINARY: Negative for: Dysuria, Hematuria, Ulceration HEMATOLOGIC/LYMPHATIC : Negative for: Swollen glands All other reviewed and negative other than HPI. Past Medical History PAST MEDICAL HISTORY Diagnosis Date Depression Diabetes mellitus (HCC) Hypertension Hypothyroidism Inflammatory bowel diseases (IBD) Leukocytosis Mixed hyperlipidemia Neuropathy Rheumatism, unspecified Past Surgical History PAST SURGICAL HISTORY Procedure Laterality Date BACK SURGERY HX 2018 HERNIA REPAIR HX multiple TOTAL ABDOM HYSTERECTOMY TOTAL KNEE REPLACEMENT Bilateral 2011 Family History FAMILY HISTORY Problem Relation Age of Onset Cancer Mother Heart disease Father Hypertension Father Migraines Maternal Grandmother Heart disease Paternal Grandmother Heart disease Paternal Grandfather Social History Social History Tobacco Use Smoking status: Former Current packs/day: 0.00 Average packs/day: 1.5 packs/day for 20.0 years (30.0 ttl pk-yrs) Types: Cigarettes Start date: 07/14/1979 Quit date: 07/14/1999 Years since quittin.8 Smokeless tobacco: Never Vaping Use Vaping status: Never Used Substance Use Topics (more content not included)... Normal [facility] A1C with Estimated Average G sagrarion 05-06-2024 Glucose [Mass/Vol] 194 mg/dL Normal [facility] Comment on above: Result Comment: PERF ORMED BY: [place] [address] PATHOLOGIST BUILDING ILLUMINATING ENGINEER MATHIEU RASCON M.D. Performed By: #### C SHAWNEE BOYLE URMA #### [facility] [address] [place] [address] Alanine aminotransferase [En zymatic activity/volume] in Serum or PlasmaOrdered By: Ayanna Vicente on 05-06-2024 ALT [Catalytic activity/Vol] 25 U/L Normal [facility] Comment on above: Performed By: #### C SHAWNEE BOYLE, URMA #### [facility] [address] [place] [address] ALT [Catalytic activity/Vol] Alanine aminotransferase [Enzymatic activity/volume] in Serum or Plasma [facility] Albumin [Mass/volume] in Ser um or Plasma by Bromocresol green (BCG) dye binding methoOrdered By: Ayanna Vicente on 05-06-2024 Albumin BCG dye [Mass/Vol] 4.1 g/dL 3.5-5.7 [facility] Albumin BCG dye [Mass/Vol] Albumin [Mass/volume] in Serum or Plasma by Bromocresol green (BCG) dye binding metho 3.5-5.7 [facility] Alkaline phosphatase [Enzyma tic activity/volume] in Serum or PlasmaOrdered By: Ayanna Vicente on 05-06-2024 ALP [Catalytic activity/Vol] 89 U/L Normal 34 [facility] Comment on above: Performed By: #### C UU, SHAWNEE, URMA #### [facility] [address] ALP [Catalytic activity/Vol] Alkaline phosphatase [Enzymatic activity/volume] in Serum or Plasma 34 [facility] Appearance of UrineOrdered B y: Ayanna Vicente on 05-06-2024 Appearance (U) Urine appearance Clear [facility] Aspartate aminotransferase [ Enzymatic activity/volume] in Serum or PlasmaOrdered By: Ayanna Vicente on 05-06-2024 AST [Catalytic activity/Vol] 23 U/L Normal [facility] Comment on above: Performed By: #### C UU, SHAWNEE, URMA #### [facility] [address] [place] [address] AST [Catalytic activity/Vol] Aspartate aminotransferase [Enzymatic activity/volume] in Serum or Plasma [facility] Bacteria [Presence] in Urine sediment by Light microscopyOrdered By: Ayanna Vicente on 05-06-2024 Bacteria LM Ql (Urine sed) 4+ [HPF] High None Seen [facility] Bacteria LM Ql (Urine sed) Bacteria [Presence] in Urine sediment by Light microscopy High None Seen [facility] Bilirubin Test strip Ql (U)O rdered By: Ayanna Vicente on 05-06-2024 Bilirubin Ql (U) Negative Negative [facility] Bilirubin Ql (U) Bilirubin.total [Presence] in Urine by Test strip Negative [facility] Bilirubin.total [Mass/volume ] in Serum or PlasmaOrdered By: Ayanna Vicente on 05-06-2024 Bilirubin [Mass/Vol] 0.4 mg/dL Normal 0.3-1.0 [facility] Comment on above: Performed By: #### C USHAWNEE Willams UREMORY #### [facility] [address] [place] [address] [place] Bilirubin [Mass/Vol] Bilirubin.total [Mass/volume] in Serum or Plasma 0.3-1.0 [facility] Blood estimated average gluc ose determination by estimation from glycated hemoglobinOrdered By: Ayanna Vicente on 05-06-2024 Average glucose Estimated from glycated hemoglobin (Bld) [Mass/Vol] Glucose mean value [Mass/volume] in Blood Estimated from glycated hemoglobin [facility] Calcium [Mass/volume] in Ser um or PlasmaOrdered By: Ayanna Vicente on 05-06-2024 Calcium [Mass/Vol] 9.6 mg/dL Normal 8.6-10.3 [facility] Comment on above: Performed By: #### C USHAWNEE Willams URMA #### [facility] [address] Calcium [Mass/Vol] Calcium [Mass/volume ] in Serum or Plasma 8.6-10.3 [facility] Carbon dioxide, total [Moles /volume] in Serum or PlasmaOrdered By: Ayanna Vicente on 05-06-2024 CO2 [Moles/Vol] 30.2 mmol/L Normal 21.0-31.0 [facility] Comment on above: Performed By: #### C UUSHAWNEE UREMORY #### [facility] [address] [place] [id number] [place] CO2 [Moles/Vol] Carbon dioxide, tota l [Moles/volume] in Serum or Plasma 21.0-31.0 [facility] Chloride [Moles/volume] in S ebony or PlasmaOrdered By: Ayanna Vicente on 05-06-2024 Chloride [Moles/Vol] 105 mmol/L Normal 98-107 [facility] Comment on above: Performed By: #### C UUSHAWNEE, URMA #### [facility] [address] [place] [id number] [place] Chloride [Moles/Vol] Chloride [Moles/volume] in Serum or Plasma 98-107 [facility] Cholesterol [Mass/volume] in Serum or PlasmaOrdered By: Ayanna Vicente on 05-06-2024 Cholesterol [Mass/Vol] 134 mg/dL Low 140-200 [facility] Comment on above: Chol less than 200 m g/dl low riskChol 201-239 mg/dl borderline riskChol 240 mg/dl and greater high risk Result Comment: Chol less than 200 mg/dl low risk Chol 201-239 mg/dl borderline risk Chol 240 mg/dl and greater high risk Performed By: #### C UU, ADDONJACY, URMA #### [address] Cholesterol [Mass/Vol] Cholesterol [Mass/volume] in Serum or Plasma Low 140-200 [facility] Comment on above: Chol less than 200 m g/dl low riskChol 201-239 mg/dl borderline riskChol 240 mg/dl and greater high risk Cholesterol in HDL [Mass/vol ume] in Serum or PlasmaOrdered By: Ayanna Vicente on 05-06-2024 Cholesterol in HDL [Mass/Vol] Serum or plasma high density lipoprotein (HDL) cholesterol measurement 23- [facility] Comment on above: HDL CHOL ATP-III CLA SSIFICATION Cardiovascular RiskHDL > or equal to 60 mg/dL LOWHDL < 40 mg/dL HIGH Cholesterol in LDL Calc [Mas s/Vol]Ordered By: Ayanna Vicente on 05-06-2024 Cholesterol in LDL [Mass/Vol] 46 mg/dL 0-100 [facility] Comment on above: LDL ATP III CLASSIFI CATIONLDL less than 100 mg/dL OptimalLDL 100-129 mg/dL Near or above optimalLDL 130-159 mg/dL Borderline highLDL 160-189 mg/dL HighLDL greater than 189 mg/dL Very high Cholesterol in LDL [Mass/Vol] Cholesterol in LDL [Mass/volume] in Serum or Plasma by calculation 0-100 [facility] Comment on above: LDL ATP III CLASSIFI CATIONLDL less than 100 mg/dL OptimalLDL 100-129 mg/dL Near or above optimalLDL 130-159 mg/dL Borderline highLDL 160-189 mg/dL HighLDL greater than 189 mg/dL Very high Cholesterol in VLDL Calc [Ma ss/Vol]Ordered By: Ayanna Vicente on 05-06-2024 Cholesterol in VLDL [Mass/Vol] 47 mg/dL [facility] Cholesterol in VLDL [Mass/Vol] Cholesterol in VLDL [Mass/volume] in Serum or Plasma by calculation [facility] Color Auto (U)Ordered By: Vasile Vicente on 05-06-2024 Color (U) Color of Urine by Auto Yellow [facility] Color of Urine by AutoOrdere d By: Ayanna Vicente on 05-06-2024 Color (U) Yellow Normal Yellow [facility] Comment on above: Order Comment: Name Collection Type:: Clean-Voided Midstream Performed By: #### C UU, ADDONUAPLUS, URMA #### [address] Comprehensive Metabolic Pane cynthia 05-06-2024 Albumin [Mass/Vol] 4.1 g/dL Normal 3.5-5.7 [facility] Comment on above: Performed By: #### C UU, ADDONUAPLUS, URMA #### [place] [address] [place] GFR/1.73 sq M.predicted MDRD (S/P/Bld) [Vol rate/Area] 51.605 mL/min/{1.73_m2} Normal [facility] Comment on above: Performed By: #### C UU, ADDONUAPLUS, URMA #### [place] [address] [place] Creatinine [Mass/volume] in Serum or PlasmaOrdered By: Ayanna Vicente on 05-06-2024 Creatinine [Mass/Vol] 1.08 mg/dL Normal 0.60-1.20 [facility] Comment on above: Performed By: #### C UU, ADDONUAPLUS, URMA #### [place] [address] [place] Creatinine [Mass/Vol] Creatinine [Mass/volume] in Serum or Plasma 0.60-1.20 [facility] Creatinine [Mass/volume] in UrineOrdered By: Ayanna Vicente on 05-06-2024 Creatinine (U) [Mass/Vol] 93.00 mg/dL [facility] Comment on above: No reference range e stablished Creatinine (U) [Mass/Vol] Creatinine [Mass/volume] in Urine [facility] Comment on above: No reference range e stablished Dipstick and Microscopicon 1 Bacteria,Urine 4+ High None Seen [facility] Comment on above: Order Comment: Name Collection Type:: Clean-Voided Midstream Performed By: #### C UU, ADDONUAPLUS, URMA #### [facility] [address] Bilirubin,Urine Negative Normal Negative [facility] Comment on above: Order Comment: Name Collection Type:: Clean-Voided Midstream Performed By: #### C UU, ADDONUAPLUS, URMA #### [facility] [address] Glucose Ql (U) Normal Normal Normal [facility] Comment on above: Order Comment: Name Collection Type:: Clean-Voided Midstream Performed By: #### C UU, ADDONUAPLUS, URMA #### [facility] [address] [place] [address] [place] Hyaline Casts,Urine 5-9 High 0-1 [facility] Comment on above: Order Comment: Name Collection Type:: Clean-Voided Midstream Result Comment: PERF ORMED BY: [place] [address] PATHOLOGIST BUILDING ILLUMINATING ENGINEER MATHIEU RASCON M.D. Performed By: #### C UU, ADDONUAPLUS, URMA #### [facility] [address] [place] [address] [place] Nitrite,Urine Negative Normal Negative [facility] Comment on above: Order Comment: Name Collection Type:: Clean-Voided Midstream Performed By: #### C UU, ADDONUAPLUS, URMA #### [facility] [address] [place] [address] [place] Occult Blood,Urine Negative Normal Negative [facility] Comment on above: Order Comment: Name Collection Type:: Clean-Voided Midstream Performed By: #### C UU, ADDONUAPLUS, URMA #### [place] [address] [place] Protein,Urine Trace High Negative [facility] Comment on above: Order Comment: Name Collection Type:: Clean-Voided Midstream Performed By: #### C UU, ADDONUAPLUS, URMA #### [place] [address] [place] RBC LM.HPF (Urine sed) [#/Area] 0 /[HPF] Normal 0-4 [facility] Comment on above: Order Comment: Name Collection Type:: Clean-Voided Midstream Performed By: #### C UU, ADDONUAPLUS, URMA #### [address] Specificy [place],Urine 1.020 Normal 1.001-1.030 [facility] Comment on above: Order Comment: Name Collection Type:: Clean-Voided Midstream Performed By: #### C UU, ADDONUAPLUS, URMA #### [place] [address] [place] Squamous Epithelial Cell,Urine 3-4 High 0-2 [facility] Comment on above: Order Comment: Name Collection Type:: Clean-Voided Midstream Performed By: #### C UU, ADDONUAPLUS, URMA #### [address] Urobilinogen,Urine Normal Normal Normal [facility] Comment on above: Order Comment: Name Collection Type:: Clean-Voided Midstream Performed By: #### C UU, ADDONUAPLUS, URMA #### [place] [address] [place] WBC,Urine 10-19 High 0-4 [facility] Comment on above: Order Comment: Name Collection Type:: Clean-Voided Midstream Performed By: #### C UU, ADDONUAPLUS, URMA #### [place] [address] [place] Epithelial cells.squamous [# /area] in Urine sediment by Microscopy high power fieldOrdered By: Ayanna Vicente on 05-06-2024 Epithelial cells.squamous LM.HPF (Urine sed) [#/Area] 3-4 [HPF] High 0-2 [facility] Epithelial cells.squamous LM.HPF (Urine sed) [#/Area] Epithelial cells.squamous [#/area] in Urine sediment by Microscopy high power field High 0-2 [facility] Erythrocytes [#/area] in Uri ne sediment by Microscopy high power fieldOrdered By: Ayanna Vicente on 05-06-2024 RBC LM.HPF (Urine sed) [#/Area] 0-1 [HPF] 0-4 [facility] RBC LM.HPF (Urine sed) [#/Area] Erythrocytes [#/area] in Urine sediment by Microscopy high power field 0-4 [facility] Globulin Calc (S) [Mass/Vol] Ordered By: Ayanna Vicente on 05-06-2024 Globulin (S) [Mass/Vol] Serum globulin measurement by calculation (mass/volume) [facility] Glucose [Mass/volume] in Ser um or PlasmaOrdered By: Ayanna Vicente on 05-06-2024 Glucose [Mass/Vol] 129 mg/dL High 70-100 [facility] Comment on above: ADA recommended refe rence rangeRandom Glucose Reference Range is dependent on time and content of last meal. Glucose of more than 200 mg/dL in a nonstressed, ambulatory subject supports the diagnosis of Diabetes Mellitus. Result Comment: [facility] Glucose Reference Range is dependent on time and content of last meal. Glucose of more than 200 mg/dL in a nonstressed, ambulatory subject supports the diagnosis of Diabetes Mellitus. ADA recommended reference range Performed By: #### C UU, ADDONUAPLUS, URSC #### [facility] [address] [place] [address] Glucose [Mass/Vol] Glucose [Mass/volume ] in Serum or Plasma High 70-100 [facility] Comment on above: ADA recommended refe rence rangeRandom Glucose Reference Range is dependent on time and content of last meal. Glucose of more than 200 mg/dL in a nonstressed, ambulatory subject supports the diagnosis of Diabetes Mellitus. Glucose [Mass/volume] in Uri ne by Test stripOrdered By: Ayanna Vicente on 05-06-2024 Glucose Test strip (U) [Mass/Vol] Normal mg/dL Normal [facility] Glucose Test strip (U) [Mass/Vol] Glucose [Mass/volume] in Urine by Test strip Normal [facility] Glucose mean value [Mass/vol ume] in Blood Estimated from glycated hemoglobinOrdered By: Ayanna Vicente on 05-06-2024 Average glucose Estimated from glycated hemoglobin (Bld) [Mass/Vol] 194 mg/dL [facility] Hemoglobin A1c percentageOrd ered By: Ayanna Vicente on 05-06-2024 HbA1c (Bld) [Mass fraction] 8.4 % High 4.3-5.6 [facility] Comment on above: Increased risk for d iabetes: 5.7 - 6.4diabetes: >6.4glycemic control for adults with diabetes: <7.0 Result Comment: Incr eased risk for diabetes: 5.7 - 6.4 diabetes: >6.4 glycemic control for adults with diabetes: <7.0 Performed By: #### C SHAWNEE BOYLE URMA #### [address] Hemoglobin A1c/Hemoglobin.to dayna in BloodOrdered By: Ayanna Vicente on 05-06-2024 HbA1c (Bld) [Mass fraction] Hemoglobin A1c percentage High 4.3-5.6 [facility] Comment on above: Increased risk for d iabetes: 5.7 - 6.4diabetes: >6.4glycemic control for adults with diabetes: <7.0 Hemoglobin Test strip Ql (U) Ordered By: Ayanna Vicente on 05-06-2024 Hemoglobin Ql (U) Negative Negative [facility] Hemoglobin Ql (U) Hemoglobin [Presence ] in Urine by Test strip Negative [facility] Hyaline casts LM.LPF (Urine sed) [#/Area]Ordered By: Ayanna Vicente on 05-06-2024 Hyaline casts (Urine sed) [#/Area] 5-9 [LPF] High 0-1 [facility] Hyaline casts (Urine sed) [#/Area] Hyaline casts [#/area] in Urine sediment by Microscopy low power field High 0-1 [facility] Ketones Test strip Ql (U)Ord ered By: Ayanna Vicente on 05-06-2024 Ketones Ql (U) Ketones [Presence] i n Urine by Test strip Negative [facility] Ketones [Presence] in Urine by Test stripOrdered By: Ayanna Vicente on 05-06-2024 Ketones Ql (U) Negative Normal Negative [facility] Comment on above: Order Comment: Name Collection Type:: Clean-Voided Midstream Performed By: #### C UU, ADDONUAPLUS, URMA #### [facility] [address] Laboratory - Microbiology an d Antimicrobial susceptibilityOrdered By: Ayanna Vicente on 05-06-2024 Bacteria identified Cx Nom (U) Klebsiella variicola Abnormal [facility] Bacteria identified Cx Nom (U) Klebsiella variicola Abnormal [facility] Leukocyte esterase [Presence ] in Urine by Test stripOrdered By: Ayanna Vicente on 05-06-2024 Leukocyte esterase Test strip Ql (U) 2+ High Negative [facility] Comment on above: Order Comment: Name Collection Type:: Clean-Voided Midstream Performed By: #### C UU, ADDONUAPLUS, URMA #### [facility] [address] Leukocyte esterase Test strip Ql (U) Leukocyte esterase [Presence] in Urine by Test strip High Negative [facility] Leukocytes [#/area] in Urine sediment by Microscopy high power fieldOrdered By: Ayanna Vicente on 05-06-2024 WBC LM.HPF (Urine sed) [#/Area] 10-19 [HPF] High 0-4 [facility] WBC LM.HPF (Urine sed) [#/Area] Leukocytes [#/area] in Urine sediment by Microscopy high power field High 0-4 [facility] Lipid Panelon 05-06-2024 LDL Cholesterol,Calculated 46 mg/dL Normal 0-100 [facility] Comment on above: Result Comment: LDL ATP III CLASSIFICATION LDL less than 100 mg/dL Optimal LDL 100-129 mg/dL Near or above optimal LDL 130-159 mg/dL Borderline high LDL 160-189 mg/dL High LDL greater than 189 mg/dL Very high Performed By: #### C UU, ADDONUAPLUS, URMA #### [address] Triglyceride w/Reflex 235 mg/dL High 0-149 [facility] Comment on above: Result Comment: TRIG ATP III CLASSIFICATION TRIG less than 150 mg/dL Normal TRIG 150-199 mg/dL Borderline high TRIG 200-500 mg/dL High TRIG greater than 500 mg/dL Very high Standard traceable to the Center for Disease Conrtrol and Prevention (CDC) test method. Performed By: #### C UU ADDONUAPLUS, URMA #### [address] VLDL CHOLESTEROL 47 mg/dL Normal [facility] Comment on above: Performed By: #### C UU ADDONUAPLUS, URMA #### [address] MicroAlb Creat Ratio,Uon Creatinine, Urine (Random) 93.00 mg/dL Normal [facility] Comment on above: Result Comment: No r eference range established Performed By: #### C UU ADDONUAPLUS, URMA #### [address] Microalbumin/Creatinine Ratio 17.2 mg/g Normal 0.0-30.0 [facility] Comment on above: Result Comment: 30-3 00 mg/g indicates an increased risk for diabetic nephropathy. Greater than 300 mg/g is consistent with clinical nephropathy. (Am. J. Kidney Disease 1994, 25:107) PERFORMED BY: [place] [address] PATHOLOGIST BUILDING ILLUMINATING ENGINEER MATHIEU RASCON M.D. Performed By: #### C UU, ADDONUAPLUS, URMA #### [address] Microalbumin [Mass/volume] i n UrineOrdered By: Ayanna Vicente on 05-06-2024 Albumin DL <= 20 mg/L (U) [Mass/Vol] 1.6 mg/dL Normal 0.0-1.8 [facility] Comment on above: Performed By: #### C UU, ADDONUAPLUS, URMA #### [facility] [address] [place] [address] [place] Albumin DL <= 20 mg/L (U) [Mass/Vol] Microalbumin [Mass/volume] in Urine 0.0-1.8 [facility] Nitrite Test strip Ql (U)Ord ered By: Ayanna Vicente on 05-06-2024 Nitrite Ql (U) Negative Negative [facility] Nitrite Ql (U) Nitrite [Presence] i n Urine by Test strip Negative [facility] No Panel InformationOrdered By: Ayanna Vicente on 05-06-2024 Estimated GFR (CKD-EPI) 51.605 mL/Min [facility] Creatinine Clearance (Chem N/A [facility] Potassium [Moles/volume] in Serum or PlasmaOrdered By: Ayanna Vicente on 05-06-2024 Potassium [Moles/Vol] 5.1 mmol/L Normal 3.5-5.1 [facility] Comment on above: Performed By: #### C SHAWNEE BOYLE URMA #### [facility] [address] Potassium [Moles/Vol] Potassium [Moles/volume] in Serum or Plasma 3.5-5.1 [facility] Protein Test strip (U) [Mass /Vol]Ordered By: Ayanna Vicente on 05-06-2024 Protein (U) [Mass/Vol] Trace mg/dL High Negative F [facility] Protein (U) [Mass/Vol] Protein [Mass/vol ume] in Urine by Test strip High Negative [facility] Protein [Mass/volume] in Ser um or PlasmaOrdered By: Ayanna Vicente on 05-06-2024 Protein [Mass/Vol] 6.8 g/dL Normal 6.4-8.9 [facility] Comment on above: Performed By: #### C SHAWNEE BOYLE URMA #### [facility] [address] [place] [address] [place] Protein [Mass/Vol] Protein [Mass/volume ] in Serum or Plasma 6.4-8.9 [facility] Serum globulin measurement b y calculation (mass/volume)Ordered By: Ayanna Vicente on 05-06-2024 Globulin (S) [Mass/Vol] 2.7 g/dL Normal F [facility] Comment on above: Performed By: #### C TAMAR, SHAWNEE, IAN #### [facility] [address] [place] [address] Serum or plasma albumin/glob ulin mass ratioOrdered By: Ayanna Vicente on 05-06-2024 Albumin/Globulin [Mass ratio] 1.5 {ratio} Normal [facility] Comment on above: Performed By: #### C TAMAR, SHAWNEE, IAN #### [facility] [address] [place] [address] Albumin/Globulin [Mass ratio] Serum or plasma albumin/globulin mass ratio [facility] Serum or plasma anion gap de terminationOrdered By: Ayanna Vicente on 05-06-2024 Anion gap [Moles/Vol] 10.9 mmol/L Normal 6.0-15.0 [facility] Comment on above: Performed By: #### C TAMAR, SHAWNEE, IAN #### [facility] [address] [place] [address] Anion gap [Moles/Vol] Serum or plasma an ion gap determination 6.0-15.0 [facility] Serum or plasma high density lipoprotein (HDL) cholesterol measurementOrdered By: Ayanna Vicente on 05-06-2024 Cholesterol in HDL [Mass/Vol] 41 mg/dL Normal 23-92 [facility] Comment on above: HDL CHOL ATP-III CLA SSIFICATION Cardiovascular RiskHDL > or equal to 60 mg/dL LOWHDL < 40 mg/dL HIGH Result Comment: HDL CHOL ATP-III CLASSIFICATION Cardiovascular Risk HDL > or equal to 60 mg/dL LOW HDL < 40 mg/dL HIGH Performed By: #### C USHAWNEE Willams, UREMORY #### [facility] [address] [place] [address] Serum or plasma total choles terol/high density lipoprotein (HDL) cholesterol mass ratOrdered By: Ayanna Vicente on 05-06-2024 Cholesterol.total/Cholest keena in HDL [Mass ratio] 3.3 {ratio} Normal <5.0 [facility] Comment on above: Performed By: #### C SHAWNEE BOYLE URMA #### [facility] [address] [place] [address] Cholesterol.total/Cholest keena in HDL [Mass ratio] Serum or plasma total cholesterol/high density lipoprotein (HDL) cholesterol mass rat <5.0 [facility] Sodium [Moles/volume] in Ser um or PlasmaOrdered By: Ayanna Vicente on 05-06-2024 Sodium [Moles/Vol] 141 mmol/L Normal 136-145 [facility] Comment on above: Performed By: #### C SHAWNEE BOYLE URMA #### [facility] [address] [place] [address] Sodium [Moles/Vol] Sodium [Moles/volume ] in Serum or Plasma 136-145 [facility] Specific gravity Test strip (U) [Rel density]Ordered By: Ayanna Vicente on 05-06-2024 Specific gravity (U) [Rel density] 1.020 1.001-1.030 [facility] Specific gravity (U) [Rel density] Specific gravity of Urine by Test strip 1.001-1.030 [facility] Thyrotropin [Units/volume] i n Serum or PlasmaOrdered By: Ayanna Vicente on 05-06-2024 TSH Qn 1.93 m[IU]/L Normal 0.45-5.33 [facility] Comment on above: Result Comment: PERF ORMED BY: [place] [address] PATHOLOGIST BUILDING ILLUMINATING ENGINEER MATHIEU RASCON M.D. Performed By: #### C SHAWNEE BOYLE URMA #### [facility] [address] [place] [address] TSH Qn Thyrotropin [Units/volume] in Serum or Plasma 0.45-5.33 [facility] Thyroxine (T4) free [Mass/vo lume] in Serum or PlasmaOrdered By: Ayanna Vicente on 05-06-2024 Free T4 [Mass/Vol] 0.94 ng/dL Normal 0.61-1.12 [facility] Comment on above: Performed By: #### C SHAWNEE BOYLE URMA #### [facility] [address] Free T4 [Mass/Vol] Thyroxine (T4) free [Mass/volume] in Serum or Plasma 0.61-1.12 [facility] Triglyceride [Mass/volume] i n Serum or PlasmaOrdered By: Ayanna Vicente on 05-06-2024 Triglyceride [Mass/Vol] 235 mg/dL High 0-149 [facility] Comment on above: TRIG ATP III CLASSIF ICATIONTRIG less than 150 mg/dL NormalTRIG 150-199 mg/dL Borderline highTRIG 200-500 mg/dL High TRIG greater than 500 mg/dL Very highStandard traceable to the Center for Disease Conrtrol and Prevention (CDC) test method. Triglyceride [Mass/Vol] Triglyceride [Mass/volume] in Serum or Plasma High 0-149 [facility] Comment on above: TRIG ATP III CLASSIF ICATIONTRIG less than 150 mg/dL NormalTRIG 150-199 mg/dL Borderline highTRIG 200-500 mg/dL High TRIG greater than 500 mg/dL Very highStandard traceable to the Center for Disease Conrtrol and Prevention (CDC) test method. Triiodothyronine (T3) Totalo n 05-06-2024 Triiodothyronine (T3) Total 0.89 ng/mL Normal 0.87-1.78 [facility] Comment on above: Performed By: #### C SHAWNEE BOYLE URMA #### [facility] [address] [place] [address] Triiodothyronine (T3) [Mass/ volume] in Serum or PlasmaOrdered By: Ayanna Vicente on 05-06-2024 T3 [Mass/Vol] 0.89 ng/mL 0.87-1.78 [facility] T3 [Mass/Vol] Triiodothyronine (T3 ) [Mass/volume] in Serum or Plasma 0.87-1.78 [facility] Urea nitrogen [Mass/volume] in Serum or PlasmaOrdered By: Ayanna Vicente on 05-06-2024 Urea nitrogen [Mass/Vol] 29 mg/dL [facility] [address] [place] [address] Comment on above: Performed By: #### C SHAWNEE BOYLE URMA #### [facility] [address] Urea nitrogen [Mass/Vol] Urea nitrogen [Mass/volume] in Serum or Plasma [address] Urine Cultureon 05-06-2024 Bacteria identified Cx Nom (U) ORGANISM: Klebsiella variicola (O:KLEVAR) [place] Count >100,000 Aerobic CORNELIA Charge ([id number]) ---- SUSCEPTIBILITY --- ORGANISM: O:KLEVAR ANTIBIOTIC INTERPRETATION CORNELIA Amikacin S <16 Amoxacillin/K Clavulanate S <8 Ampicillin/Sulbactam S <4 Aztreonam S <4 Cefazolin S <2 Cefepime S <2 Ceftazidime S <1 Ceftriaxone S <1 Cefuroxime S <4 Ciprofloxacin S <0.25 Ertapenem S <0.5 Gentamicin S <2 Levofloxacin S <0.5 Meropenem S <1 Nitrofurantoin S <32 Piperacillin/Tazobact am S <8 Tetracycline S <4 Tigecycline S <2 Tobramycin S <2 Trimethoprim/Sulfamet hoxazole S <0.5 S = SUSCEPTIBLE I = INTERMEDIATE R = RESISTANT BLANK = DATA NOT AVAILABLE, OR DRUG NOT ADVISABLE OR TESTED R* = RESISTANCE DUE TO EXTENDED SPECTRUM BETA-LACTAMASES ESBL = EXTENDED SPECTRUM BETA-LACTAMASE TFG = THYMIDINE-DEPENDENT STRAIN JOSE = BETA-LACTAMASE POSITIVE IB = INDUCIBLE BETA-LACTAMASE. APPEARS IN PLACE OF 'S' WITH SPECIES KNOWN TO POSSESS INDUCIBLE BETA-LACTAMASES. POTENTIALLY THEY MAY BECOME RESISTANT TO ALL B-LACTAM DRUGS. PERFORMED BY: [facility] [address] [place] [address] PATHOLOGIST BUILDING ILLUMINATING ENGINEER MATHIEU RASCON M.D. Normal [facility] Comment on above: Performed By: #### C SHAWNEE BOYLE URMA #### [facility] [address] Urine appearanceOrdered By: Ayanna Vicente on 05-06-2024 Appearance (U) Clear Normal Clear [facility] Comment on above: Order Comment: Name Collection Type:: Clean-Voided Midstream Performed By: #### C UU, ADDONUAPLUS, URMA #### [facility] [address] Urine cultureOrdered By: Aftab Vicente on 05-06-2024 Bacteria identified Cx Nom (U) Abnormal [facility] Urine microalbumin/creatinin e mass ratioOrdered By: Ayanna Vicente on 05-06-2024 Albumin/Creatinine DL <= 20 mg/L (U) [Mass ratio] 17.2 mg/g 0.0-30.0 [facility] Comment on above: 30-300 mg/g indicate s an increased risk for diabetic nephropathy. Greater than 300 mg/g is consistent with clinical nephropathy. (Am. J. Kidney Disease 1995, 25:107) Albumin/Creatinine DL <= 20 mg/L (U) [Mass ratio] Urine microalbumin/creatini ne mass ratio 0.0-30.0 [facility] Comment on above: 30-300 mg/g indicate s an increased risk for diabetic nephropathy. Greater than 300 mg/g is consistent with clinical nephropathy. (Am. J. Kidney Disease 1995, 25:107) Urobilinogen Test strip (U) [Mass/Vol]Ordered By: Ayanna Vicente on 05-06-2024 Urobilinogen (U) [Mass/Vol] Normal mg/dL Normal [facility] Urobilinogen (U) [Mass/Vol] Urobilinogen [Mass/volume] in Urine by Test strip Normal [facility] pH Test strip (U)Ordered By: Ayanna Vicente on 05-06-2024 pH (U) pH of Urine by Test strip 5.0-9.0 [facility] pH of Urine by Test stripOrd ered By: Ayanna Vicente on 05-06-2024 pH (U) 5.5 [pH] Normal 5.0-9.0 [facility] Comment on above: Order Comment: Name Collection Type:: Clean-Voided Midstream Performed By: #### C UU, ADDONUAPLUS, URMA #### [facility] [address] Ambulatory Visit Summaryon 0 02-24-2024 Ambulatory Visit Summary Ambulatory Visi t Summary KATHY WASHBURN :1940 Visit Date:02/24/2024 Ambulatory Visit Instructions Your Diagnosis Overactive bladder Mixed incontinence Recurrent UTI Your Care Team Attending Physician - SUSAN RANDOLPH PA-C Primary Care Physician - Ayanna Vicente DO This Is Your Medications List acetaminophen-oxycodo ne (acetaminophen-oxycod one 325 mg-5 mg oral tablet) aspirin (aspirin 81 mg Oral EC Tab) atorvastatin (Lipitor 20 mg Tab) ciprofloxacin (Cipro 500 mg Tab) citalopram (CeleXA 40 mg Tab) ezetimibe (Zetia 10 mg Tab) furosemide (Lasix 20 mg Tab) hydrochlorothiazide-t riamterene (Maxzide-25 oral tablet) hydroxychloroquine (Plaquenil) insulin glargine (Lantus Solostar Pen 100 units/mL subcutaneous solution) levothyroxine (Synthroid 100 mcg Tab) lisinopril (Zestril 10 mg Tab) metformin (metformin 1000 mg oral tablet, extended release) multivitamin (Vitamin B Complex oral capsule) multivitamin with minerals (Multivitamins and Minerals) oxybutynin (oxybutynin 5 mg Tab) pregabalin (Lyrica 225 mg oral capsule) propranolol [...] repair, History of hernia repair. Discharge Vitals Temperature (Temporal Artery) 36.6 ?C Heart Rate (Peripheral) 68 Respiratory Rate 16 Blood Pressure 106/42 Height 178 cm Height 70 in Weight 106 kg Weight 233.2 lb BMI 33.46 What to do next You Need to Schedule the Following Appointments Follow Up with JAX BECKMAN, ALMA ROSA BATISTA When: Comments: 6 mos (no labs) Where: [address] [place] [phone] Medications What How Much When Why Instructions Unchanged acetaminophen-oxycodo ne (acetaminophen-oxycod one 325 mg-5 mg oral tablet) By Mouth Every 6 hours Unchanged aspirin (aspirin 81 mg Oral EC Tab) By Mouth Every day Unchanged atorvastatin (Lipitor 20 mg Tab) 1 Tablets By Mouth Every day Unchanged ciprofloxacin (Cipro 500 mg Tab) See instructions 1 tab po BID x 5d PRN UTI symptoms Unchanged citalopram (CeleXA 40 mg Tab) 1 Tablets By Mouth Every day Unchanged ezetimibe (Zetia 10 mg Tab) 1 Tablets By Mouth Every day Unchanged furosemide (Lasix 20 mg Tab) 1 Tablets By Mouth Every day Unchanged hydrochlorothiazide-t riamterene (Maxzide-25 oral tablet) 0.5 Tablets By Mouth Every day Unchanged hydroxychloroquine (Plaquenil) 400 Milligram By Mouth Every day Unchanged insulin glargine (Lantus Solostar Pen 100 units/ mL subcutaneous solution) Subcutaneous Every day Unchanged levothyroxine (Synthroid 100 mcg Tab) 1 Tablets By Mouth Every day Unchanged lisinopril (Zestril 10 mg Tab) 1 Tablets By Mouth Every day Unchanged metformin (metformin 1000 mg oral tablet, extended release) 1 Tablets By Mouth 2 times a day Unchanged multivitamin (Vitamin B Complex oral capsule) By Mouth Every day Unchanged multivitamin with minerals (Multivitamins and Minerals) Unchanged oxybutynin (oxybutynin 5 mg Tab) See instructions Bladder instability can take 1 tab po up to TID PRN incontinence Unchanged pregabalin (Lyrica 225 mg oral capsule) 1 Capsules By Mouth 2 times a day Unchanged propranolol (Inderal LA 60 mg Cap-ER) 1 Capsules By Mouth Every day Unchanged zolpidem (Ambien 10 mg Tab) 1 Tablets By Mouth Once a day (at bedtime) as needed for for sleep Allergies Vantin (Eye swelling) cephalosporins (Swelling, Eye swelling) Problems Ongoing - Any problem that you are currently receiving treatment for. Arthritis Bladder instability Cystitis Depression Fibromyalgia Frequency of urination Headache Hyperlipidemia Hypertension Hypothyroidism Insomnia Leaking of urine Lumbar pain Lung nodule Mixed incontinence Neuropathy Overactive bladder Peripheral edema Recurrent UTI Rheumatism Sacroiliac dysfunction Stress incontinence Type 2 diabetes mellitus Urgency incontinence Weak urine stream Patient Survey You may receive a survey via text or e-mail asking about your office visit. Please share your experience with us by completing your survey. We appreciate your feedback and thank you for choosing us for your care. Education Materials Overactive Bladder, Adult Overactive bladder is a condition in which a person has a sudden and frequent need to urinate. A person might also leak urine if he or she cannot get to the bathroom fast enough (urinary incontinence). Sometimes, symptoms can interfere with work or social activities (more content not included)... Normal [facility] Reminderson 02-24-2024 Reminders Reminders From: Lori Bledsoe To: EU - Administrative; Sent: 02/24/2024 10:44:10 EDT Show up: 06/25/2024 09:43:00 EST Subject: 6 MO F/U Due Date/Time: 08/26/2024 09:43:00 EST Reminder/Recall PT SEEN ON 02/24/2024 BY JINNY IN [place]. PT WILL NEED A 6 MO F/U. APPT DUE BY 08/26/2024 [facility] Urology Office/Clinic Noteon 02-24-2024 Urology Office/Clinic Note Urology Office/Clinic Note Chief Complaint 1 year follow up HPI Staff 1yr DX: OAB, Mixed Incontinence & Recurrent UTI *Oxybutynin 5mg qd therapy (can titrate up to TID). Also given Cipro 5 day Tx to keep on hand in case of UTI. PVR: 37 ml Dysuria: denies Incomplete bladder emptying: denies Hematuria: denies visible blood Frequency: yes goes in pad Urgency: yes Nocturia: 2 x a night Stream: denies Leaking: leaks in her pad constantly Post void dripping: denies Wearing pads/ Depends: pads daily and changes them 8 x a day Urge incontinence: yes Stress incontinence: yes when coughing, sneezing and bending down Incontinence without Sensory Awareness: denies Abdominal pain: denies Flank pain: denies Sexual complaints: _ History of Present Illness staff HPI reviewed and agree. Review of Systems PHQ Score Initial Depression Screen Score: 0 SCORE no fever, chills, malaise, myalgia. no rash/lesions. no chest pain, palpitations, or SOB. no abdominal pain, nausea, vomiting. no unilateral calf swelling, redness, pain Physical Exam Vitals & Measurements T: 36.6 ?C(Temporal Artery) HR: 68(Peripheral) RR: 16 BP: 106/42 HT: 70 in HT: 178 cm WT: 106 kg WT: 233.2 lb BMI: 33.46 General: nontoxic, NAD Mouth: moist mucosa Lungs: normal respiratory effort Cardio: regular rate, good distal perfusion Abdomen: nondistended, no suprapubic distention or tenderness, no CVA tenderness Neurologic: Grossly normal Skin: No rashes or suspicious lesions Assessment/Plan Prior DLS pt 1. Overactive bladder (N32.81: Overactive bladder) S/p Botox 100u 08/30/21. -[place] sxs only improved for a few weeks or so. Wasn't very impressed w improvement. does not wish to repeat Botox. Failed Myrbetriq previously. Was taking Oxybutynin 5mg prn (1x/wk) as she was unsure how to take it. Recommended to tritiate up to tid or try 10mg at once at prior OV. 10/17/23 - A1c 8.5 BBS 20 (19). Reports worsening leakage and increased frequency. States she has tried taking Oxybutynin more often but shares she has edema in her lower extremities by the end of the day. Discussed trying an alternative medication. Risks/benefits and possible SEs discussed. Pt is very satisfied with this plan. VESIcare, Trospium IR, and Tolterodine IR are tier 3. -D/c Oxybutynin -Start Trospium 20mg bid. RX sent to [facility]. Discussed the medication side effects, and the patient will monitor closely for these, as well as for symptom improvement. If severe side effects occur, the medication should be stopped and the office notified. -Call with update in 1 month -DM control -F/u in 6 mos 2. Mixed incontinence (N39.46: Mixed incontinence) Wears a pad, changes 8x/day (q2hrs). -See #1 3. Recurrent UTI (N39.0: Urinary tract infection, site not specified) Hx of recurrent UTIs which PCP would treat with Cipro as this helped. Previously shared DLS would always give her Cipro to have on hand. Rx was sent at prior OV. Has used 3x in the past year. Sx completely resolve every time. UA today negative for blood and infection. -Take Cipro x5 days when sxs arise -call if sxs don't improve Follow-up With When Contact Information JAX BECKMAN, SUSAN Miller, URL [address] [place] [address] [phone] Additional Instructions: 6 mos (no labs) Patient Education Overactive Bladder, Adult Documentation recorded by the donna Ospina accurately reflects the services(s) I performed and decisions made by me. Authenticated by Susan Randolph PA-C on 02/24/2024 10:52:41. ISarah, personally scribed for Susan Randolph PA-C on 02/24/2024 10:43:38. . Problem List/Past Medical History Ongoing Arthritis [...] hernia repair, History of hernia repair. Medications acetaminophen-oxycodo ne 325 mg-5 mg oral tablet, Oral, q6hr Ambien 10 mg Tab, 10 mg= 1 tab(s), Oral, Once a day (at bedtime), PRN aspirin 81 mg Oral EC Tab, Oral, Daily CeleXA 40 mg Tab, 40 mg= 1 tab(s), Oral, Daily Cipro 500 mg Tab, (more content not included)... Normal [facility] Comment on above: Result Comment: Elec tronically Signed By: SUSAN RANDOLPH PA-C\.br\Date and Time Signed: 02/24/24 10:53 EDT\.br\Electronically Co-Signed By: Sarah Ospina\.br\Date and Time Co-Signed: 02/24/24 10:44 EDT\.br\Electronically Co-Signed By: Sarah Ospina\.br\Date and Time Co-Signed: 02/24/24 10:47 EDT Laboratory - Chemistry and C hemistry - challengeon 02-04-2024 Bilirubin Ql (U) Negative NEGATIVE [facility] Glucose (U) [Mass/Vol] Negative NEGATIVE [facility] Ketones Ql (U) Negative NEGATIVE [facility] pH (U) 6.0 [pH] 5.0-9.0 [facility] Specific gravity (U) [Rel density] >=1.030 Abnormal 1.005-1.025 [facility] Urobilinogen Qn (U) 0.2 {Jose'U}/dL 0.2-1.0 [facility] Laboratory - Specimen inform ationon 02-04-2024 Appearance (U) CLEAR CLEAR [facility] Color (U) YELLOW YELLOW [facility] Laboratory - Urinalysison Leukocyte esterase Test strip Ql (U) TRACE Abnormal NEGATIVE [facility] Mucus Ql (Urine sed) TRACE Abnormal NONE SEEN [facility] Nitrite Ql (U) Negative NEGATIVE [facility] Protein Ql (U) TRACE mg/dL NEG/TRACE [facility] No Panel Informationon 02-03 Miscellaneous Test Comment See comment [facility] Comment on above: Specimen Source: UCC - Urine,Clean Catch - Urine CC - 200.100 Urine Bacteria TRACE #/HPF Abnormal NONE SEEN [facility] Urine Occult Blood Negative NEGATIVE [facility] Urine Other Casts NONE SEEN #/LPF NONE SEEN [facility] Urine Other Crystals None Seen #/HPF None Seen [facility] Urine RBC 0-2 #/HPF 0-2 [facility] Urine Squamous Epithelial Cells RARE #/LPF NONE/RARE [facility] Urine WBC 2-5 #/HPF Abnormal NONE SEEN [facility] Urine culture routineon 01-12 Bacteria identified Cx Nom (U) [facility] A1C with Estimated Average G luon 10-17-2023 Glucose [Mass/Vol] 197 mg/dL Normal [facility] Comment on above: Result Comment: PERF ORMED BY: [place] [address] PATHOLOGIST BUILDING ILLUMINATING ENGINEER MATHIEU RASCON M.D. Performed By: #### T 4F, CMP, T3F, DIFF CBC, A1C WT eA, LIPID, TSH3 #### [place] [address] [place] Alanine aminotransferase [En zymatic activity/volume] in Serum or PlasmaOrdered By: Ayanna Vicente on 10-17-2023 ALT [Catalytic activity/Vol] 28 U/L Normal 7-52 [facility] Comment on above: Performed By: #### T 4F, CMP, T3F, DIFF CBC, A1C WT eA, LIPID, TSH3 #### [facility] [address] [place] [address] [place] Albumin [Mass/volume] in Ser um or Plasma by Bromocresol green (BCG) dye binding methoOrdered By: Ayanna Vicente on 10-17-2023 Albumin BCG dye [Mass/Vol] 4.1 g/dL 3.5-5.7 [facility] Alkaline phosphatase [Enzyma tic activity/volume] in Serum or PlasmaOrdered By: Ayanna Vicente on 10-17-2023 ALP [Catalytic activity/Vol] 93 U/L Normal 34-104 [facility] Comment on above: Performed By: #### T 4F, CMP, T3F, DIFF CBC, A1C WTH eA, LIPID, TSH3 #### [place] [address] [place] Anisocytosis [Presence] in B lood by Light microscopyOrdered By: Ayanna Vicente on 10-17-2023 Anisocytosis Ql (Bld) Slight Normal [facility] Comment on above: Performed By: #### C UU, ADDONUAPLUS, URMA #### [facility] [address] Aspartate aminotransferase [ Enzymatic activity/volume] in Serum or PlasmaOrdered By: Ayanna Vicente on 10-17-2023 AST [Catalytic activity/Vol] 30 U/L Normal 13-39 [facility] Comment on above: Performed By: #### T 4F, CMP, T3F, DIFF CBC, A1C WTH eA, LIPID, TSH3 #### [facility] [address] Automated erythrocytes count in urine sediment (number/area)Ordered By: Ayanna Vicente on 10-17-2023 RBC Auto (Urine sed) [#/Area] 1-2 [HPF] 0-4 [facility] Automated leukocytes count i n urine sediment (number/area)Ordered By: Ayanna Vicente on 10-17-2023 WBC Auto (Urine sed) [#/Area] 10-19 [HPF] High 0-4 [facility] Automated urine color determ inationOrdered By: Ayanna Vicente on 10-17-2023 Color (U) Yellow Normal Yellow [facility] Comment on above: Order Comment: Name Collection Type:: Clean-Voided Midstream Performed By: #### C UU, ADDONUAPLUS, URMA #### [facility] [address] Basophils Auto (Bld) [#/Vol] Ordered By: Ayanna Vicente on 10-17-2023 Basophils (Bld) [#/Vol] N/A F [facility] Basophils/100 WBC Auto (Bld) Ordered By: Ayanna Vicente on 10-17-2023 Basophils/100 WBC (Bld) N/A F [facility] Bilirubin Test strip Ql (U)O rdered By: Ayanna Vicente on 10-17-2023 Bilirubin Ql (U) Negative Negative [facility] Bilirubin.total [Mass/volume ] in Serum or PlasmaOrdered By: Ayanna Vicente on 10-17-2023 Bilirubin [Mass/Vol] 0.4 mg/dL Normal 0.3-1.0 [facility] Comment on above: Performed By: #### T 4F, CMP, T3F, DIFF CBC, A1C WTH eA, LIPID, TSH3 #### [facility] [address] [place] [address] [place] Calcium [Mass/volume] in Ser um or PlasmaOrdered By: Ayanna Vicente on 10-17-2023 Calcium [Mass/Vol] 9.7 mg/dL Normal 8.6-10.3 [facility] Comment on above: Performed By: #### T 4F, CMP, T3F, DIFF CBC, A1C WTH eA, LIPID, TSH3 #### [facility] [address] [place] [address] [place] Carbon dioxide, total [Moles /volume] in Serum or PlasmaOrdered By: Ayanna Vicente on 10-17-2023 CO2 [Moles/Vol] 30.9 mmol/L Normal 21.0-31.0 [facility] Comment on above: Performed By: #### T 4F, CMP, T3F, DIFF CBC, A1C WTH eA, LIPID, TSH3 #### [facility] [address] [place] [address] [place] Chloride [Moles/volume] in S ebony or PlasmaOrdered By: Ayanna Vicente on 10-17-2023 Chloride [Moles/Vol] 105 mmol/L Normal 98-107 [facility] Comment on above: Performed By: #### T 4F, CMP, T3F, DIFF CBC, A1C WTH eA, LIPID, TSH3 #### [facility] [address] [place] [address] [place] Cholesterol [Mass/volume] in Serum or PlasmaOrdered By: Ayanna Vicente on 10-17-2023 Cholesterol [Mass/Vol] 131 mg/dL Low 140-200 [facility] Comment on above: Chol less than 200 m g/dl low riskChol 201-239 mg/dl borderline riskChol 240 mg/dl and greater high risk Result Comment: Chol less than 200 mg/dl low risk Chol 201-239 mg/dl borderline risk Chol 240 mg/dl and greater high risk Performed By: #### T 4F, CMP, T3F, DIFF CBC, A1C WTH eA, LIPID, TSH3 #### [facility] [address] Cholesterol in LDL Calc [Mas s/Vol]Ordered By: Ayanna Vicente on 10-17-2023 Cholesterol in LDL [Mass/Vol] 30 mg/dL 0-100 [facility] Comment on above: LDL ATP III CLASSIFI CATIONLDL less than 100 mg/dL OptimalLDL 100-129 mg/dL Near or above optimalLDL 130-159 mg/dL Borderline highLDL 160-189 mg/dL HighLDL greater than 189 mg/dL Very high Cholesterol in VLDL Calc [Ma ss/Vol]Ordered By: Ayanna Vicente on 10-17-2023 Cholesterol in VLDL [Mass/Vol] 60 mg/dL [facility] Comprehensive Metabolic Pane cynthia 10-17-2023 Albumin [Mass/Vol] 4.1 g/dL Normal 3.5-5.7 [facility] Comment on above: Performed By: #### T 4F, CMP, T3F, DIFF CBC, A1C WTH eA, LIPID, TSH3 #### [facility] [address] GFR/1.73 sq M.predicted MDRD (S/P/Bld) [Vol rate/Area] 47.859 mL/min/{1.73_m2} Normal [facility] Comment on above: Performed By: #### T 4F, CMP, T3F, DIFF CBC, A1C WTH eA, LIPID, TSH3 #### [facility] [address] Creatinine [Mass/volume] in Serum or PlasmaOrdered By: Ayanna Vicente on 10-17-2023 Creatinine [Mass/Vol] 1.15 mg/dL Normal 0.60-1.20 [facility] Comment on above: Performed By: #### T 4F, CMP, T3F, DIFF CBC, A1C WTH eA, LIPID, TSH3 #### [facility] [address] [place] [address] [place] Diff and CBCon 10-17-2023 Mean Corpuscular HGB Conc 31.5 g/dL Low 32.0-35.0 [facility] Comment on above: Performed By: #### C UU, SHAWNEE, URMA #### [address] Microcytosis Slight Normal [facility] Comment on above: Performed By: #### C UU, ADDONUAPLUS, URMA #### [address] Myelocytes 1 % High 0-0 [facility] Comment on above: Performed By: #### C UU, ADDONUAPLUS, URMA #### [address] Platelet Estimate Normal Normal Normal [facility] Comment on above: Performed By: #### C UU, ADDONUAPLUS, URMA #### [address] Platelet Morphology Normal Normal Normal [facility] Comment on above: Result Comment: PERF ORMED BY: [place] [address] PATHOLOGIST BUILDING ILLUMINATING ENGINEER MATHIEU RASCON M.D. Performed By: #### C UU, ADDONUAPLUS, URMA #### [address] Poikilocytosis Slight Normal [facility] Comment on above: Performed By: #### C UU, ADDONUAPLUS, URMA #### [address] Reactive Lymphocytes 6 % Normal 0-12 [facility] Comment on above: Performed By: #### C UU, ADDONUAPLUS, URMA #### [place] [address] [place] Dipstick and Microscopicon 0 10-17-2023 Appearance (U) Clear Normal Clear [facility] Comment on above: Order Comment: Name Collection Type:: Clean-Voided Midstream Performed By: #### C UU, ADDONUAPLUS, URMA #### [place] [address] [place] Bacteria,Urine 4+ High None Seen [facility] Comment on above: Order Comment: Name Collection Type:: Clean-Voided Midstream Performed By: #### C UU, ADDONUAPLUS, URMA #### [address] Bilirubin,Urine Negative Normal Negative [facility] Comment on above: Order Comment: Name Collection Type:: Clean-Voided Midstream Performed By: #### C UU, ADDONUAPLUS, URMA #### [address] Glucose Ql (U) Normal Normal Normal [facility] Comment on above: Order Comment: Name Collection Type:: Clean-Voided Midstream Performed By: #### C UU, ADDONUAPLUS, URMA #### [address] Hyaline Casts,Urine None Seen Normal 0-8 [facility] Comment on above: Order Comment: Name Collection Type:: Clean-Voided Midstream Result Comment: PERF ORMED BY: [place] [address] PATHOLOGIST BUILDING ILLUMINATING ENGINEER MATHIEU RASCON M.D. Performed By: #### C UU, ADDONUAPLUS, URMA #### [address] Ketones Ql (U) Negative Normal Negative [facility] Comment on above: Order Comment: Name Collection Type:: Clean-Voided Midstream Performed By: #### C UU, ADDONUAPLUS, URMA #### [address] Leukocyte esterase Test strip Ql (U) 2+ High Negative [facility] Comment on above: Order Comment: Name Collection Type:: Clean-Voided Midstream Performed By: #### C UU, ADDONUAPLUS, URMA #### [address] Nitrite,Urine Positive High Negative [facility] Comment on above: Order Comment: Name Collection Type:: Clean-Voided Midstream Performed By: #### C UU, ADDONUAPLUS, URMA #### [address] Occult Blood,Urine Negative Normal Negative [facility] Comment on above: Order Comment: Name Collection Type:: Clean-Voided Midstream Performed By: #### C UU, ADDONUAPLUS, URMA #### [address] Protein,Urine Trace High Negative [facility] Comment on above: Order Comment: Name Collection Type:: Clean-Voided Midstream Performed By: #### C UU, ADDONUAPLUS, URMA #### [address] RBC,Urine 1-2 Normal 0-4 [facility] Comment on above: Order Comment: Name Collection Type:: Clean-Voided Midstream Performed By: #### C UU, ADDONUAPLUS, URMA #### [address] Specificy [place],Urine 1.018 Normal 1.001-1.030 [facility] Comment on above: Order Comment: Name Collection Type:: Clean-Voided Midstream Performed By: #### C UU, ADDONUAPLUS, URMA #### [address] Squamous Epithelial Cell,Urine 0-1 Normal 0-2 [facility] Comment on above: Order Comment: Name Collection Type:: Clean-Voided Midstream Performed By: #### C UU, ADDONUAPLUS, URMA #### [address] Urobilinogen,Urine Normal Normal Normal [facility] Comment on above: Order Comment: Name Collection Type:: Clean-Voided Midstream Performed By: #### C UU, ADDONUAPLUS, URMA #### [address] WBC,Urine 10-19 High 0-4 [facility] Comment on above: Order Comment: Name Collection Type:: Clean-Voided Midstream Performed By: #### C UU, ADDONUAPLUS, URMA #### [address] Eosinophils Auto (Bld) [#/Vo l]Ordered By: Ayanna Vicente on 10-17-2023 Eosinophils (Bld) [#/Vol] N/A [facility] Eosinophils/100 WBC Auto (Bl d)Ordered By: Ayanna Vicente on 10-17-2023 Eosinophils/100 WBC (Bld) N/A [facility] Eosinophils/100 leukocytes i n Blood by Manual countOrdered By: Ayanna Vicente on 10-17-2023 Eosinophils/100 WBC (Bld) 2 % Normal 1-3 [facility] Comment on above: Performed By: #### C USHAWNEE Willams URMA #### [address] Erythrocyte distribution wid th [Ratio] by Automated countOrdered By: Ayanna Vicente on 10-17-2023 Erythrocyte distribution width (RBC) [Ratio] 15.2 % Normal 11.9-15.3 [facility] Comment on above: Performed By: #### C USHAWNEE Willams URMA #### [address] Erythrocytes [#/volume] in B lood by Automated countOrdered By: Ayanna Vicente on 10-17-2023 RBC (Bld) [#/Vol] 4.36 10*6/uL Normal 3.60-5.00 [facility] Comment on above: Performed By: #### C UUSHAWNEE URMA #### [address] Glucose [Mass/volume] in Ser um or PlasmaOrdered By: Ayanna Vicente on 10-17-2023 Glucose [Mass/Vol] 162 mg/dL High 70-100 [facility] Comment on above: ADA recommended refe rence rangeRandom Glucose Reference Range is dependent on time and content of last meal. Glucose of more than 200 mg/dL in a nonstressed, ambulatory subject supports the diagnosis of Diabetes Mellitus. Result Comment: [place] om Glucose Reference Range is dependent on time and content of last meal. Glucose of more than 200 mg/dL in a nonstressed, ambulatory subject supports the diagnosis of Diabetes Mellitus. ADA recommended reference range Performed By: #### T 4F, CMP, T3F, DIFF CBC, A1C WTH eA, LIPID, TSH3 #### [facility] [address] Glucose mean value [Mass/vol ume] in Blood Estimated from glycated hemoglobinOrdered By: Ayanna Vicente on 10-17-2023 Average glucose Estimated from glycated hemoglobin (Bld) [Mass/Vol] 197 mg/dL [facility] Hematocrit [Volume Fraction] of Blood by Automated countOrdered By: Ayanna Vicente on 10-17-2023 Hematocrit (Bld) [Volume fraction] 38.8 % Normal 34.0-46.4 [facility] Comment on above: Performed By: #### C UU, ADDONUAPLUS, URMA #### [address] Hemoglobin A1c percentageOrd ered By: Ayanna Vicente on 10-17-2023 HbA1c (Bld) [Mass fraction] 8.5 % High 4.3-5.6 [facility] Comment on above: Increased risk for d iabetes: 5.7 - 6.4diabetes: >6.4glycemic control for adults with diabetes: <7.0 Result Comment: Incr eased risk for diabetes: 5.7 - 6.4 diabetes: >6.4 glycemic control for adults with diabetes: <7.0 Performed By: #### T 4F, CMP, T3F, DIFF CBC, A1C WTH eA, LIPID, TSH3 #### [facility] [address] [place] [address] [place] Hemoglobin [Mass/volume] in BloodOrdered By: Ayanna Vicente on 10-17-2023 Hemoglobin (Bld) [Mass/Vol] 12.2 g/dL Normal 11.8-15.4 [facility] Comment on above: Performed By: #### C UU, ADDONUAPLUS, URMA #### [facility] [address] Ketones Auto test strip (U) [Mass/Vol]Ordered By: Ayanna Vicente on 10-17-2023 Ketones (U) [Mass/Vol] Negative Negative [facility] - UrinalysisOrder ed By: Ayanna Vicente on 10-17-2023 Hyaline casts LM Ql (Urine sed) None seen [LPF] 0-8 [facility] Leukocytes [#/volume] correc andreina for nucleated erythrocytes in Blood by Automated counOrdered By: Ayanna Vicente on 10-17-2023 WBC corrected for nucl RBC Auto (Bld) [#/Vol] 15.9 10*3/uL High 3.8-11.6 [facility] Leukocytes [#/volume] in Blo od by Automated countOrdered By: Ayanna Vicente on 10-17-2023 WBC (Bld) [#/Vol] 15.9 10*3/uL High 3.8-11.6 [facility] Comment on above: Performed By: #### C UU, ADDONUAPLUS, URMA #### [facility] [address] Lipid Panelon 10-17-2023 LDL Cholesterol,Calculated 30 mg/dL Normal 0-100 [facility] Comment on above: Result Comment: LDL ATP III CLASSIFICATION LDL less than 100 mg/dL Optimal LDL 100-129 mg/dL Near or above optimal LDL 130-159 mg/dL Borderline high LDL 160-189 mg/dL High LDL greater than 189 mg/dL Very high Performed By: #### T 4F, CMP, T3F, DIFF CBC, A1C WTH eA, LIPID, TSH3 #### [facility] [address] Triglyceride w/Reflex 303 mg/dL High 0-149 [facility] Comment on above: Result Comment: TRIG ATP III CLASSIFICATION TRIG less than 150 mg/dL Normal TRIG 150-199 mg/dL Borderline high TRIG 200-500 mg/dL High TRIG greater than 500 mg/dL Very high Standard traceable to the Center for Disease Conrtrol and Prevention (CDC) test method. Performed By: #### T 4F, CMP, T3F, DIFF CBC, A1C WTH eA, LIPID, TSH3 #### [facility] [address] VLDL CHOLESTEROL 60 mg/dL Normal [facility] Comment on above: Performed By: #### T 4F, CMP, T3F, DIFF CBC, A1C WTH eA, LIPID, TSH3 #### [facility] [address] [place] [address] Lymphocytes Auto (Bld) [#/Vo l]Ordered By: Ayanna Vicente on 10-17-2023 Lymphocytes (Bld) [#/Vol] N/A [facility] Lymphocytes/100 WBC Auto (Bl d)Ordered By: Ayanna Vicente on 10-17-2023 Lymphocytes/100 WBC (Bld) N/A [facility] Lymphocytes/100 leukocytes i n Blood by Manual countOrdered By: Ayanna Vicente on 10-17-2023 Lymphocytes/100 WBC (Bld) 51 % High 18-42 [facility] Comment on above: Performed By: #### C UUSHAWNEE URMA #### [address] MCH [Entitic mass] by Automa andreina countOrdered By: Ayanna Vicente on 10-17-2023 MCH (RBC) [Entitic mass] 28.0 pg Normal 24.7-34.3 [facility] Comment on above: Performed By: #### C UUSHAWNEE URMA #### [address] MCHC Auto (RBC) [Mass/Vol]Or dered By: Ayanna Vicente on 10-17-2023 MCHC (RBC) [Mass/Vol] 31.5 g/dL Low 32.0-35.0 [facility] MCV [Entitic volume] by Auto mated countOrdered By: Ayanna Vicente on 10-17-2023 MCV (RBC) [Entitic vol] 89.0 fL Normal 80-100 [facility] Comment on above: Performed By: #### C UU, MAINONJACY, URMA #### [address] Manual blood segmented neutr ophils/100 leukocytesOrdered By: Ayanna Vicente on 10-17-2023 Segmented neutrophils/100 WBC (Bld) 33 % Low 50-70 [facility] Comment on above: Performed By: #### C UUSHAWNEE URMA #### [facility] [address] [place] [address] Microalbumin [Mass/volume] i n UrineOrdered By: Ayanna Vicente on 10-17-2023 Albumin DL <= 20 mg/L (U) [Mass/Vol] 1.9 mg/dL High 0.0-1.8 [facility] Comment on above: Result Comment: PERF ORMED BY: [place] [address] PATHOLOGIST BUILDING ILLUMINATING ENGINEER MATHIEU RASCON M.D. Performed By: #### C SHAWNEE BOYLE URMA #### [facility] [address] [place] [address] [place] Microcytes LM Ql (Bld)Ordere d By: Ayanna Vicente on 10-17-2023 Microcytes Ql (Bld) Slight [facility] Monocytes Auto (Bld) [#/Vol] Ordered By: Ayanna Vicente on 10-17-2023 Monocytes (Bld) [#/Vol] N/A [facility] Monocytes/100 WBC Auto (Bld) Ordered By: Ayanna Vicente on 10-17-2023 Monocytes/100 WBC (Bld) N/A [facility] Monocytes/100 leukocytes in Blood by Manual countOrdered By: Ayanna Vicente on 10-17-2023 Monocytes/100 WBC (Bld) 8 % Normal 2-11 [facility] Comment on above: Performed By: #### C UU, MISAEL MALLORYMA #### [facility] [address] [place] [address] [place] Myelocytes/100 WBC Manual cn t (Bld)Ordered By: Ayanna Vicente on 10-17-2023 Myelocytes/100 WBC (Bld) 1 % High 0-0 [facility] Neutrophils Auto (Bld) [#/Vo l]Ordered By: Ayanna Vicente on 10-17-2023 Neutrophils (Bld) [#/Vol] N/A [facility] Neutrophils/100 WBC Auto (Bl d)Ordered By: Ayanna Vicente on 10-17-2023 Neutrophils/100 WBC (Bld) N/A [facility] Nitrite Test strip Ql (U)Ord ered By: Ayanna Vicente on 10-17-2023 Nitrite Ql (U) Positive High Negative [facility] No Panel InformationOrdered By: Ayanna Vicente on 10-17-2023 Estimated GFR (CKD-EPI) 47.859 mL/Min [facility] Creatinine Clearance (Chem N/A [facility] Nucleated erythrocytes [Pres ence] in Blood by Automated countOrdered By: Ayanna Vicente on 10-17-2023 Nucleated RBC Auto Ql (Bld) N/A [facility] Platelet adequacy [Presence] in Blood by Light microscopyOrdered By: Ayanna Vicente on 10-17-2023 Platelets LM Ql (Bld) Normal Normal [facility] Platelet mean volume [Entiti c volume] in Blood by Automated countOrdered By: Ayanna Vicente on 10-17-2023 Platelet mean volume (Bld) [Entitic vol] 9.2 fL Normal 6.3-10.7 [facility] Comment on above: Result Comment: PERF ORMED BY: [place] [address] PATHOLOGIST BUILDING ILLUMINATING ENGINEER MATHIEU RASCON M.D. Performed By: #### C UU, SHAWNEE, URMA #### [facility] [address] Platelet morphology finding [Identifier] in BloodOrdered By: Ayanna Vicente on 10-17-2023 Platelet morphology finding Nom (Bld) Normal Normal [facility] Platelets [#/volume] in Bloo d by Automated countOrdered By: Ayanna Vicente on 10-17-2023 Platelets (Bld) [#/Vol] 231 10*3/uL Normal 150-450 [facility] Comment on above: Performed By: #### C UU, ADDONUAPLUS, URMA #### [facility] [address] [place] [address] [place] Poikilocytosis [Presence] in Blood by Light microscopyOrdered By: Ayanna Vicente on 10-17-2023 Poikilocytosis LM Ql (Bld) Slight [facility] Potassium [Moles/volume] in Serum or PlasmaOrdered By: Ayanna Vicente on 10-17-2023 Potassium [Moles/Vol] 5.1 mmol/L Normal 3.5-5.1 [facility] Comment on above: Performed By: #### T 4F, CMP, T3F, DIFF CBC, A1C WTH eA, LIPID, TSH3 #### [facility] [address] Protein Auto test strip (U) [Mass/Vol]Ordered By: Ayanna Vicente on 10-17-2023 Protein (U) [Mass/Vol] Trace mg/dL High Negative [facility] Protein [Mass/volume] in Ser um or PlasmaOrdered By: Ayanna Vicente on 10-17-2023 Protein [Mass/Vol] 6.7 g/dL Normal 6.4-8.9 [facility] Comment on above: Performed By: #### T 4F, CMP, T3F, DIFF CBC, A1C WTH eA, LIPID, TSH3 #### [facility] [address] RBC morphologyOrdered By: Vasile Vicente on 10-17-2023 RBC morphology finding Nom (Bld) N/A [facility] Serum globulin measurement b y calculation (mass/volume)Ordered By: Ayanna Vicente on 10-17-2023 Globulin (S) [Mass/Vol] 2.6 g/dL Normal F [facility] Comment on above: Performed By: #### T 4F, CMP, T3F, DIFF CBC, A1C WTH eA, LIPID, TSH3 #### [facility] [address] Serum or plasma albumin/glob ulin mass ratioOrdered By: Ayanna Vicente on 10-17-2023 Albumin/Globulin [Mass ratio] 1.6 {ratio} Normal [facility] Comment on above: Performed By: #### T 4F, CMP, T3F, DIFF CBC, A1C WTH eA, LIPID, TSH3 #### [facility] [address] Serum or plasma anion gap de terminationOrdered By: Ayanna Vicente on 10-17-2023 Anion gap [Moles/Vol] 8.2 mmol/L Normal 6.0-15.0 [facility] Comment on above: Performed By: #### T 4F, CMP, T3F, DIFF CBC, A1C WTH eA, LIPID, TSH3 #### [facility] [address] Serum or plasma high density lipoprotein (HDL) cholesterol measurementOrdered By: Ayanna Vicente on 10-17-2023 Cholesterol in HDL [Mass/Vol] 40 mg/dL Normal 23-92 [facility] Comment on above: HDL CHOL ATP-III CLA SSIFICATION Cardiovascular RiskHDL > or equal to 60 mg/dL LOWHDL < 40 mg/dL HIGH Result Comment: HDL CHOL ATP-III CLASSIFICATION Cardiovascular Risk HDL > or equal to 60 mg/dL LOW HDL < 40 mg/dL HIGH Performed By: #### T 4F, CMP, T3F, DIFF CBC, A1C WT eA, LIPID, TSH3 #### [facility] [address] Serum or plasma total choles terol/high density lipoprotein (HDL) cholesterol mass ratOrdered By: Ayanna Vicente on 10-17-2023 Cholesterol.total/Cholest keena in HDL [Mass ratio] 3.3 {ratio} Normal <5.0 [facility] Comment on above: Performed By: #### T 4F, CMP, T3F, DIFF CBC, A1C WTH eA, LIPID, TSH3 #### [facility] [address] Sodium [Moles/volume] in Ser um or PlasmaOrdered By: Ayanna Vicente on 10-17-2023 Sodium [Moles/Vol] 139 mmol/L Normal 136-145 [facility] Comment on above: Performed By: #### T 4F, CMP, T3F, DIFF CBC, A1C WTH eA, LIPID, TSH3 #### [facility] [address] Specific gravity Auto test s trip (U) [Rel density]Ordered By: Ayanna Vicente on 04-05-2024 Specific gravity (U) [Rel density] 1.018 1.001-1.030 [facility] Squamous epithelial cells de tection in urine sediment by light microscopyOrdered By: Ayanna Vicente on 10-17-2023 Epithelial cells.squamous LM Ql (Urine sed) 0-1 [HPF] 0-2 [facility] Thyrotropin [Units/volume] i n Serum or PlasmaOrdered By: Ayanna Vicente on 10-17-2023 TSH Qn 1.46 m[IU]/L Normal 0.45-5.33 [facility] Comment on above: Result Comment: PERF ORMED BY: [place] [address] PATHOLOGIST BUILDING ILLUMINATING ENGINEER MATHIEU RASCON M.D. Performed By: #### C UU, ADDONUAPLUS, URMA #### [address] Thyroxine (T4) free [Mass/vo lume] in Serum or PlasmaOrdered By: Ayanna Vicente on 10-17-2023 Free T4 [Mass/Vol] 1.02 ng/dL Normal 0.61-1.12 [facility] Comment on above: Performed By: #### T 4F, CMP, T3F, DIFF CBC, A1C WTH eA, LIPID, TSH3 #### [facility] [address] [place] [address] Triglyceride [Mass/volume] i n Serum or PlasmaOrdered By: Ayanna Vicente on 10-17-2023 Triglyceride [Mass/Vol] 303 mg/dL High 0-149 [facility] Comment on above: TRIG ATP III CLASSIF ICATIONTRIG less than 150 mg/dL NormalTRIG 150-199 mg/dL Borderline highTRIG 200-500 mg/dL High TRIG greater than 500 mg/dL Very highStandard traceable to the Center for Disease Conrtrol and Prevention (CDC) test method. Triiodothyronine (T3) Freeon 10-17-2023 Triiodothyronine (T3) Free 3.22 pg/mL Normal 2.50-3.90 [facility] Comment on above: Result Comment: PERF ORMED BY: [place] [address] PATHOLOGIST BUILDING ILLUMINATING ENGINEER MATHIEU RASCON M.D. Performed By: #### T 4F, CMP, T3F, DIFF CBC, A1C WTH eA, LIPID, TSH3 #### [facility] [address] Triiodothyronine (T3) Free [ Mass/volume] in Serum or PlasmaOrdered By: Ayanna Vicente on 10-17-2023 Free T3 [Mass/Vol] 3.22 pg/mL 2.50-3.90 [facility] Urea nitrogen [Mass/volume] in Serum or PlasmaOrdered By: Ayanna Vicente on 10-17-2023 Urea nitrogen [Mass/Vol] 30 mg/dL High 7-25 [facility] Comment on above: Performed By: #### T 4F, CMP, T3F, DIFF CBC, A1C WTH eA, LIPID, TSH3 #### [facility] [address] Urine Cultureon 10-17-2023 Bacteria identified Cx Nom (U) ORGANISM: Escherichia coli (MDRO) (O:ESCCOLMDRO) [place] Count >100,000 Aerobic CORNELIA Charge (NMIC56) ---- SUSCEPTIBILITY --- ORGANISM: O:ESCCOLMDRO ANTIBIOTIC INTERPRETATION CORNELIA Amikacin S <16 Amoxacillin/K Clavulanate S <8 Ampicillin R >16 Ampicillin/Sulbactam I 1616/8 Aztreonam S <4 Cefazolin S 4 Cefepime S <2 Ceftazidime S <1 Ceftazidime/Avibactam S <4 Ceftolozane/Tazobacta m S <2 Ceftriaxone S <1 Cefuroxime S 8 Ciprofloxacin R >2 Ertapenem S <0.5 Gentamicin S <2 Levofloxacin R >4 Meropenem S <1 Meropenem/Vaborbactam S <2 Nitrofurantoin S <32 Piperacillin/Tazobact am S <8 Tetracycline S <4 Tigecycline S <2 Tobramycin S <2 Trimethoprim/Sulfamet hoxazole R >2 S = SUSCEPTIBLE I = INTERMEDIATE R = RESISTANT BLANK = DATA NOT AVAILABLE, OR DRUG NOT ADVISABLE OR TESTED R* = RESISTANCE DUE TO EXTENDED SPECTRUM BETA-LACTAMASES ESBL = EXTENDED SPECTRUM BETA-LACTAMASE TFG = THYMIDINE-DEPENDENT STRAIN JOSE = BETA-LACTAMASE POSITIVE IB = INDUCIBLE BETA-LACTAMASE. APPEARS IN PLACE OF 'S' WITH SPECIES KNOWN TO POSSESS INDUCIBLE BETA-LACTAMASES. POTENTIALLY THEY MAY BECOME RESISTANT TO ALL B-LACTAM DRUGS. PERFORMED BY: [place] [address] PATHOLOGIST BUILDING ILLUMINATING ENGINEER MATHIEU RASCON M.D. Normal [facility] Comment on above: Performed By: #### C SHAWNEE BOYLE URMA #### [address] Urine bacteria detection by automated methodOrdered By: Ayanna Vicente on 10-17-2023 Bacteria Auto Ql (U) 4+ High None Seen [facility] Urine clarity by refractomet ry automatedOrdered By: Ayanna Vicente on 10-17-2023 Clarity Refractometry automated (U) Clear Clear [facility] Urine culture routineOrdered By: Ayanna Vicente on 10-17-2023 Bacteria identified Cx Nom (U) Escherichia coli (MDRO) Abnormal [facility] Urine glucose measurement by automated test strip (mass/volume)Ordered By: Ayanna Vicente on 10-17-2023 Glucose Auto test strip (U) [Mass/Vol] Normal mg/dL Normal [facility] Urine hemoglobin detection b y automated test stripOrdered By: Ayanna Vicente on 10-17-2023 Hemoglobin Auto test strip Ql (U) Negative Negative [facility] Urine leukocyte esterase det ection by automated test stripOrdered By: Ayanna Vicente on 10-17-2023 Leukocyte esterase Auto test strip Ql (U) 2+ High Negative [facility] Urine pH measurement by auto mated test stripOrdered By: Ayanna Vicente on 10-17-2023 pH (U) 5.5 [pH] Normal 5.0-9.0 [facility] Comment on above: Order Comment: Name Collection Type:: Clean-Voided Midstream Performed By: #### C UUSHAWNEE URMA #### [facility] [address] Urobilinogen Auto test strip (U) [Mass/Vol]Ordered By: Ayanna Vicente on 10-17-2023 Urobilinogen (U) [Mass/Vol] Normal mg/dL Normal [facility] Variant lymphocytes/100 WBC Manual cnt (Bld)Ordered By: Ayanna Vciente on 10-17-2023 Variant lymphocytes/100 WBC (Bld) 6 % 0-12 [facility] CBC W Auto Differential pane l (Bld)on 08-08-2023 Basophils (Bld) [#/Vol] 0.00 10*3/uL Normal <0.11 [facility] Comment on above: Order Comment: Speci men Type: BLOOD SPECIMEN Ordering Facility: [facility] Address: [address] [place] [address] Performed By: #### 2 532-0, 59282-7 #### [facility] CLIA [id number] [address] [place] [address] 90569 Basophils/100 WBC (Bld) 0.0 % Normal [facility] Comment on above: Order Comment: Speci men Type: BLOOD SPECIMEN Ordering Facility: [facility] Address: [address] [place] [address] Performed By: #### 2 532-0, 62124-7 #### [facility] CLIA [id number] [address] [place] [address] 33776 Differential cell count method Nom (Bld) Manual Normal [facility] Comment on above: Order Comment: Speci men Type: BLOOD SPECIMEN Ordering Facility: [facility] Address: [address] [place] [address] Performed By: #### 2 532-0, 44351-2 #### [facility] CLIA [id number] [address] [place] [address] 25147 Eosinophils (Bld) [#/Vol] 0.19 10*3/uL Normal <0.46 [facility] Comment on above: Order Comment: Speci men Type: BLOOD SPECIMEN Ordering Facility: [facility] Address: [address] [place] [address] Performed By: #### 2 532-0, #### [facility] CLIA [id number] [address] [place] [address] 66981 Eosinophils/100 WBC (Bld) 1.0 % Normal [facility] Comment on above: Order Comment: Speci men Type: BLOOD SPECIMEN Ordering Facility: [facility] Address: [address] [place] [address] Performed By: #### 2 532-0, #### [facility] CLIA [id number] [address] [place] [address] 03123 Erythrocyte distribution width (RBC) [Ratio] 14.4 % Normal 11.5-15.0 [facility] Comment on above: Order Comment: Speci men Type: BLOOD SPECIMEN Ordering Facility: [facility] Address: [address] [place] [address] Performed By: #### 2 532-0, #### [facility] CLIA [id number] [address] [place] [address] 92312 Hematocrit (Bld) [Volume fraction] 40.8 % Normal 36.0-46.0 [facility] Comment on above: Order Comment: Speci men Type: BLOOD SPECIMEN Ordering Facility: [facility] Address: [address] [place] [address] Performed By: #### 2 532-0, #### [facility] CLIA [id number] [address] [place] [address] 53606 Hemoglobin (Bld) [Mass/Vol] 12.9 g/dL Normal 11.5-15.5 [facility] Comment on above: Order Comment: Speci men Type: BLOOD SPECIMEN Ordering Facility: [facility] Address: [address] [place] [address] Performed By: #### 2 532-0, #### [facility] CLIA [id number] [address] [place] [address] 92805 Lymphocytes (Bld) [#/Vol] 13.41 10*3/uL High 1.00-4. 00 [facility] Comment on above: Order Comment: Speci men Type: BLOOD SPECIMEN Ordering Facility: [facility] Address: [address] [place] [address] Performed By: #### 2 532-0, 40672-0 #### [facility] CLIA [id number] [address] [place] [address] 16137 Lymphocytes/100 WBC (Bld) 69.0 % Normal [facility] Comment on above: Order Comment: Speci men Type: BLOOD SPECIMEN Ordering Facility: [facility] Address: [address] [place] [address] Performed By: #### 2 532-0, #### [facility] CLIA [id number] [address] [place] [address] 43965 MCH (RBC) [Entitic mass] 28.7 pg Normal 26.0-34.0 [facility] Comment on above: Order Comment: Speci men Type: BLOOD SPECIMEN Ordering Facility: [facility] Address: [address] [place] [address] Performed By: #### 2 532-0, #### [facility] CLIA [id number] [address] [place] [address] 47858 MCHC (RBC) [Mass/Vol] 31.6 g/dL Normal 30.5-36.0 [facility] Comment on above: Order Comment: Speci men Type: BLOOD SPECIMEN Ordering Facility: [facility] Address: [address] [place] [address] Performed By: #### 2 532-0, 58174-8 #### [facility] CLIA [id number] [address] [place] [address] 98231 MCV (RBC) [Entitic vol] 90.7 fL Normal 80.0-100.0 [facility] Comment on above: Order Comment: Speci men Type: BLOOD SPECIMEN Ordering Facility: [facility] Address: [address] [place] [address], [place] [address] Performed By: #### 2 532-0, #### [facility] CLIA [id number] [address] [place] [address] 65771 Monocytes (Bld) [#/Vol] 0.39 10*3/uL Normal <0.87 [facility] Comment on above: Order Comment: Speci men Type: BLOOD SPECIMEN Ordering Facility: [facility] Address: [address] [place] [address] Performed By: #### 2 532-0, #### [facility] CLIA [id number] [address] [place] [address] 40878 Monocytes/100 WBC (Bld) 2.0 % Normal [facility] Comment on above: Order Comment: Speci men Type: BLOOD SPECIMEN Ordering Facility: [facility] Address: [address] [place] [address] Performed By: #### 2 532-0, #### [facility] CLIA [id number] [address] [place] [address] 14105 Neutrophils (Bld) [#/Vol] 5.44 10*3/uL Normal 1.45-7.5 0 [facility] Comment on above: Order Comment: Speci men Type: BLOOD SPECIMEN Ordering Facility: [facility] Address: [address] [place] [address] Performed By: #### 2 532-0, #### [facility] CLIA [id number] [address] [place] [address] 17390 Neutrophils/100 WBC (Bld) 28.0 % Normal [facility] Comment on above: Order Comment: Speci men Type: BLOOD SPECIMEN Ordering Facility: [facility] Address: [address] [place] [address] Performed By: #### 2 532-0, #### [facility] CLIA [id number] [address] [place] [address] 08142 Nucleated RBC (Bld) [#/Vol] 10*3/uL Normal <0.01 [facility] Comment on above: Order Comment: Speci men Type: BLOOD SPECIMEN Ordering Facility: [facility] Address: [address] [place] [address] Performed By: #### 2 532-0, #### [facility] CLIA [id number] [address] [place] [address] 89730 Nucleated RBC/100 WBC (Bld) [Ratio] 0.0 /100 WBC Normal [facility] Comment on above: Order Comment: Speci men Type: BLOOD SPECIMEN Ordering Facility: [facility] Address: [address] [place] [address] Performed By: #### 2 532-0, #### [facility] CLIA [id number] [address] [place] [address] 74047 Ovalocytes LM Ql (Bld) Few Normal [facility] Comment on above: Order Comment: Speci men Type: BLOOD SPECIMEN Ordering Facility: [facility] Address: [address] [place] [address] Performed By: #### 2 532-0, #### [facility] CLIA [id number] [address] [place] [address] 66107 Platelet mean volume (Bld) [Entitic vol] 10.5 fL Normal 9.0-12.7 [facility] Comment on above: Order Comment: Speci men Type: BLOOD SPECIMEN Ordering Facility: [facility] Address: [address] [place] [address] Performed By: #### 2 532-0, #### [facility] CLIA [id number] [address] [place] [address] 28347 Platelets (Bld) [#/Vol] 276 10*3/uL Normal 150-400 [facility] Comment on above: Order Comment: Speci men Type: BLOOD SPECIMEN Ordering Facility: [facility] Address: [address] [place] [address] Performed By: #### 2 532-0, 85687-1 #### [facility] CLIA [id number] [address] [place] [address] 34317 Platelets Estimate (Bld) [#/Vol] Adequate Normal [facility] Comment on above: Order Comment: Speci men Type: BLOOD SPECIMEN Ordering Facility: [facility] Address: [address] [place] [address] Performed By: #### 2 532-0, 83581-4 #### [facility] CLIA [id number] [address] [place] [address] 52851 Polychromasia LM Ql (Bld) Slight Normal [facility] Comment on above: Order Comment: Speci men Type: BLOOD SPECIMEN Ordering Facility: [facility] Address: [address] [place] [address] Performed By: #### 2 532-0, 58418-8 #### [facility] CLIA [id number] [address] [place] [address] 91525 RBC (Bld) [#/Vol] 4.50 10*6/uL Normal 3.90-5.20 [facility] Comment on above: Order Comment: Speci men Type: BLOOD SPECIMEN Ordering Facility: [facility] Address: [address] [place] [address] Performed By: #### 2 532-0, 24377-2 #### [facility] CLIA [id number] [address] [place] [address] 17146 RED CELL MORPH Reviewed: see result s of individual morphologies Normal [facility] Comment on above: Order Comment: Speci men Type: BLOOD SPECIMEN Ordering Facility: [facility] Address: [address] [place] [address] Performed By: #### 2 532-0, 16174-9 #### [facility] CLIA [id number] [address] [place] [address] 16809 WBC (Bld) [#/Vol] 19.43 10*3/uL High 3.70-11.00 [facility] Comment on above: Order Comment: Speci men Type: BLOOD SPECIMEN Ordering Facility: [facility] Address: [facility] [address] Performed By: #### 2 532-0, 98926-2 #### [facility] CLIA [id number] [address] [place] [address] 82401 CNOVSPon 08-08-2023 CNOVSP Visit (SP) Office ([place]) KATHY WASHBURN ([id number]) 1940 F Date Time Provider Department 08/08/23 2:15 PM FRANCINE LARES During your visit today, we recorded the following information about you: Temperature Pulse Respiration Blood pressure 97.3 degrees 74/minute 18/minute 136/80 Weight 105.2 kg Francine Lares MD 08/08/2023 2:59 PM Signed PATIENT NAME: Kathy Washburn CLINIC NO.: [id number] ATTENDING PHYSICIAN: Francine Lares MD DATE OF [...] Range St (more content not included)... Normal [facility] Comprehensive metabolic 2000 panelon 08-08-2023 Albumin [Mass/Vol] 4.4 g/dL Normal 3.9-4.9 [facility] Comment on above: Order Comment: Speci men Type: BLOOD SPECIMEN Ordering Facility: [facility] Address: [address] [place] [address] [place] [address] Performed By: #### 2 4323-8 #### [facility] CLIA [id number] [address] [place] [address] ALP [Catalytic activity/Vol] 121 U/L Normal 34-123 [facility] Comment on above: Order Comment: Speci men Type: BLOOD SPECIMEN Ordering Facility: [facility] Address: [address] [place] [id number] Performed By: #### 2 4323-8 #### [facility] CLIA [id number] [address] [place] [address] ALT [Catalytic activity/Vol] 30 U/L Normal 7-38 [facility] Comment on above: Order Comment: Speci men Type: BLOOD SPECIMEN Ordering Facility: [facility] Address: [address] [place] [address] Performed By: #### 2 4323-8 #### [facility] CLIA [id number] [address] [place] [address] 49719 Anion gap [Moles/Vol] 9 mmol/L Normal 9-18 [facility] Comment on above: Order Comment: Speci men Type: BLOOD SPECIMEN Ordering Facility: [facility] Address: [address] [place] [address] Performed By: #### 2 4323-8 #### [facility] CLIA [id number] [address] [place] [address] 64360 AST [Catalytic activity/Vol] 29 U/L Normal 13-35 [facility] Comment on above: Order Comment: Speci men Type: BLOOD SPECIMEN Ordering Facility: [facility] Address: [address] [place] [address] Performed By: #### 2 4323-8 #### [facility] CLIA [id number] [address] [place] [address] 96105 Bilirubin [Mass/Vol] 0.3 mg/dL Normal 0.2-1.3 [facility] Comment on above: Order Comment: Speci men Type: BLOOD SPECIMEN Ordering Facility: [facility] Address: [address] [place] [address] Performed By: #### 2 4323-8 #### [facility] CLIA [id number] [address] [place] [address] Calcium [Mass/Vol] 10.1 mg/dL Normal 8.5-10.2 [facility] Comment on above: Order Comment: Speci men Type: BLOOD SPECIMEN Ordering Facility: [facility] Address: [address] [place], [place] [address] Performed By: #### 2 4323-8 #### [facility] CLIA [id number] [address] [place] [address] Chloride [Moles/Vol] 103 mmol/L Normal 97-105 [facility] Comment on above: Order Comment: Speci men Type: BLOOD SPECIMEN Ordering Facility: [facility] Address: [address] [place] [address] Performed By: #### 2 4323-8 #### [facility] CLIA [id number] [address] [place] [address] 66005 CO2 [Moles/Vol] 28 mmol/L Normal 22-30 [facility] Comment on above: Order Comment: Speci men Type: BLOOD SPECIMEN Ordering Facility: [facility] Address: [address] [place], [place] [address] Performed By: #### 2 4323-8 #### [facility] CLIA [id number] [address] [place] [address] 35728 Creatinine [Mass/Vol] 1.33 mg/dL High 0.58-0.96 [facility] Comment on above: Order Comment: Speci men Type: BLOOD SPECIMEN Ordering Facility: [facility] Address: [address] [place] [address] Performed By: #### 2 4323-8 #### [facility] CLIA [id number] [address] [place] [address] 21639 Creatinine and Glomerular filtration rate.predicted panel (S/P/Bld) 40 mL/min/1.73m??? Low >=60 [facility] Comment on above: Order Comment: Ha oropeza Type: BLOOD SPECIMEN Ordering Facility: [facility] Address: [address] [place] [address] Result Comment: Aimee mated Glomerular Filtration Rate [...] GFR. Performed By: #### 2 4323-8 #### [facility] CLIA [id number] [address] [place] [address] 85158 Glucose [Mass/Vol] 207 mg/dL High 74-99 [facility] Comment on above: Order Comment: Ha oropeza Type: BLOOD SPECIMEN Ordering Facility: [facility] Address: [address] [place] [address] Result Comment: The [place] [employer] (ADA) provides guidance for cutoff [...] Standards of Medical Care in Diabetes 2016, [place] [employer]. Diabetes Care. 2016.39(Suppl 1). Performed By: #### 2 4323-8 #### [facility] CLIA [id number] [address] [place] [address] 29306 Potassium [Moles/Vol] 4.9 mmol/L Normal 3.7-5.1 [facility] Comment on above: Order Comment: Ha oropeza Type: BLOOD SPECIMEN Ordering Facility: [facility] Address: [address] [place] [address] Performed By: #### 2 4323-8 #### [facility] CLIA [id number] [address] [place] [address] Protein [Mass/Vol] 7.5 g/dL Normal 6.3-8.0 [facility] Comment on above: Order Comment: Speci men Type: BLOOD SPECIMEN Ordering Facility: [facility] Address: [address] [place] [address] Performed By: #### 2 4323-8 #### [facility] CLIA [id number] [address] [place] [address] Sodium [Moles/Vol] 140 mmol/L Normal 136-144 [facility] Comment on above: Order Comment: Speci men Type: BLOOD SPECIMEN Ordering Facility: [facility] Address: [address] [place], [place] [address] Performed By: #### 2 4323-8 #### [facility] CLIA [id number] [address] [place] [address] 81011 Urea nitrogen [Mass/Vol] 46 mg/dL High 7-21 [facility] Comment on above: Order Comment: Speci men Type: BLOOD SPECIMEN Ordering Facility: [facility] Address: [address] [place], [place] [address] Performed By: #### 2 4323-8 #### [facility] CLIA [id number] [address] [place] [address] 40317 Alanine aminotransferase [En zymatic activity/volume] in Serum or PlasmaOrdered By: Ayanna Vicente on 04-09-2023 ALT [Catalytic activity/Vol] 25 U/L 7-52 [facility] Albumin [Mass/volume] in Ser um or Plasma by Bromocresol green (BCG) dye binding methoOrdered By: Ayanna Vicente on 04-09-2023 Albumin BCG dye [Mass/Vol] 4.2 g/dL 3.5-5.7 [facility] Alkaline phosphatase [Enzyma tic activity/volume] in Serum or PlasmaOrdered By: Ayanna Vicente on 04-09-2023 ALP [Catalytic activity/Vol] 95 U/L 34-104 [facility] Anisocytosis LM Ql (Bld)Orde red By: Ayanna Vicente on 04-09-2023 Anisocytosis Ql (Bld) Slight [facility] Aspartate aminotransferase [ Enzymatic activity/volume] in Serum or PlasmaOrdered By: Ayanna Vicente on 04-09-2023 AST [Catalytic activity/Vol] 21 U/L 13-39 [facility] Basophils Auto (Bld) [#/Vol] Ordered By: Ayanna Vicente on 04-09-2023 Basophils (Bld) [#/Vol] N/A F [facility] Basophils/100 WBC Auto (Bld) Ordered By: Ayanna Vicente on 04-09-2023 Basophils/100 WBC (Bld) N/A F [facility] Bilirubin.total [Mass/volume ] in Serum or PlasmaOrdered By: Ayanna Vicente on 04-09-2023 Bilirubin [Mass/Vol] 0.4 mg/dL 0.3-1.0 [facility] Calcium [Mass/volume] in Ser um or PlasmaOrdered By: Ayanna Vicente on 04-09-2023 Calcium [Mass/Vol] 9.9 mg/dL 8.6-10.3 [facility] Carbon dioxide, total [Moles /volume] in Serum or PlasmaOrdered By: Ayanna Vicente on 04-09-2023 CO2 [Moles/Vol] 31.5 mmol/L 21.0-31.0 [facility] Chloride [Moles/volume] in S ebony or PlasmaOrdered By: Ayanna Vicente on 04-09-2023 Chloride [Moles/Vol] 103 mmol/L 98-107 [facility] Cholesterol [Mass/volume] in Serum or PlasmaOrdered By: Ayanna Vicente on 04-09-2023 Cholesterol [Mass/Vol] 139 mg/dL 140-200 [facility] Comment on above: Chol less than 200 m g/dl low riskChol 201-239 mg/dl borderline riskChol 240 mg/dl and greater high risk Cholesterol in LDL Calc [Mas s/Vol]Ordered By: Ayanna Vicente on 04-09-2023 Cholesterol in LDL [Mass/Vol] 27 mg/dL 0-100 [facility] Comment on above: LDL ATP III CLASSIFI CATIONLDL less than 100 mg/dL OptimalLDL 100-129 mg/dL Near or above optimalLDL 130-159 mg/dL Borderline highLDL 160-189 mg/dL HighLDL greater than 189 mg/dL Very high Cholesterol in VLDL Calc [Ma ss/Vol]Ordered By: Ayanna Vicente on 04-09-2023 Cholesterol in VLDL [Mass/Vol] 69 mg/dL [facility] Creatinine [Mass/volume] in Serum or PlasmaOrdered By: Ayanna Vicente on 04-09-2023 Creatinine [Mass/Vol] 1.06 mg/dL 0.60-1.20 [facility] Eosinophils Auto (Bld) [#/Vo l]Ordered By: Ayanna Vicente on 04-09-2023 Eosinophils (Bld) [#/Vol] N/A [facility] Eosinophils/100 WBC Auto (Bl d)Ordered By: Ayanna Vicente on 04-09-2023 Eosinophils/100 WBC (Bld) N/A [facility] Eosinophils/100 WBC Manual c nt (Bld)Ordered By: Ayanna Vicente on 04-09-2023 Eosinophils/100 WBC (Bld) 5 % 1-3 [facility] Erythrocyte distribution wid th Auto (RBC) [Ratio]Ordered By: Ayanna Vicente on 04-09-2023 Erythrocyte distribution width (RBC) [Ratio] 15.1 % 11.9-15.3 [facility] Globulin Calc (S) [Mass/Vol] Ordered By: Ayanna Vicente on 04-09-2023 Globulin (S) [Mass/Vol] 2.4 g/dL [facility] Glucose [Mass/volume] in Ser um or PlasmaOrdered By: Ayanna Vicente on 04-09-2023 Glucose [Mass/Vol] 154 mg/dL 70-100 [facility] Comment on above: ADA recommended [...] from glycated hemoglobin (Bld) [Mass/Vol] 200 mg/dL [facility] Hematocrit Auto (Bld) [Volum e fraction]Ordered By: Ayanna Vicente on 04-09-2023 Hematocrit (Bld) [Volume fraction] 37.2 % 34.0-46.4 [facility] Hemoglobin A1c percentageOrd ered By: Ayanna Vicente on 04-09-2023 HbA1c (Bld) [Mass fraction] 8.6 % 4.3-5.6 [facility] Comment on above: Increased risk for d iabetes: 5.7 - 6.4diabetes: >6.4glycemic control for adults with diabetes: <7.0 Hemoglobin [Mass/volume] in BloodOrdered By: Ayanna Vicente on 04-09-2023 Hemoglobin (Bld) [Mass/Vol] 12.2 g/dL 11.8-15.4 [facility] Leukocytes [#/volume] correc andreina for nucleated erythrocytes in Blood by Automated counOrdered By: Ayanna Vicente on 04-09-2023 WBC corrected for nucl RBC Auto (Bld) [#/Vol] 15.3 10*3/uL 3.8-11.6 [facility] Lymphocytes Auto (Bld) [#/Vo l]Ordered By: Ayanna Vicente on 04-09-2023 Lymphocytes (Bld) [#/Vol] N/A [facility] Lymphocytes/100 WBC Auto (Bl d)Ordered By: Ayanna Vicente on 04-09-2023 Lymphocytes/100 WBC (Bld) N/A [facility] Lymphocytes/100 WBC Manual c nt (Bld)Ordered By: Ayanna Vicente on 04-09-2023 Lymphocytes/100 WBC (Bld) 59 % 18-42 [facility] MCH Auto (RBC) [Entitic mass ]Ordered By: Ayanna Vicente on 04-09-2023 MCH (RBC) [Entitic mass] 29.1 pg 24.7-34.3 [facility] MCHC Auto (RBC) [Mass/Vol]Or dered By: Ayanna Vicente on 04-09-2023 MCHC (RBC) [Mass/Vol] 32.9 g/dL 32.0-35.0 [facility] MCV Auto (RBC) [Entitic vol] Ordered By: Ayanna Vicente on 04-09-2023 MCV (RBC) [Entitic vol] 88.5 fL 80-100 F [facility] Monocytes Auto (Bld) [#/Vol] Ordered By: Ayanna Vicente on 04-09-2023 Monocytes (Bld) [#/Vol] N/A F [facility] Monocytes/100 WBC Auto (Bld) Ordered By: Ayanna Vicente on 04-09-2023 Monocytes/100 WBC (Bld) N/A F [facility] Monocytes/100 WBC Manual cnt (Bld)Ordered By: Ayanna Vicente on 04-09-2023 Monocytes/100 WBC (Bld) 7 % 2-11 F [facility] Myelocytes/100 WBC Manual cn t (Bld)Ordered By: Ayanna Vicente on 04-09-2023 Myelocytes/100 WBC (Bld) 1 % 0-0 [facility] Neutrophils Auto (Bld) [#/Vo l]Ordered By: Ayanna Vicente on 04-09-2023 Neutrophils (Bld) [#/Vol] N/A [facility] Neutrophils/100 WBC Auto (Bl d)Ordered By: Ayanna Vicente on 04-09-2023 Neutrophils/100 WBC (Bld) N/A [facility] No Panel InformationOrdered By: Ayanna Vicente on 04-09-2023 Estimated GFR (CKD-EPI) 53.106 mL/Min [facility] Creatinine Clearance (Chem N/A [facility] Nucleated erythrocytes [Pres ence] in Blood by Automated countOrdered By: Ayanna Vicente on 04-09-2023 Nucleated RBC Auto Ql (Bld) N/A [facility] Ovalocyte detectionOrdered B y: Ayanna Vicente on 04-09-2023 Ovalocytes LM Ql (Bld) Slight [facility] Platelet adequacy [Presence] in Blood by Light microscopyOrdered By: Ayanna Vicente on 04-09-2023 Platelets LM Ql (Bld) Normal Normal Fir [facility] Platelet mean volume Auto (B ld) [Entitic vol]Ordered By: Ayanna Vicente on 04-09-2023 Platelet mean volume (Bld) [Entitic vol] 9.5 fL 6.3-10.7 [facility] Platelet morphology finding [Identifier] in BloodOrdered By: Ayanna Vicente on 04-09-2023 Platelet morphology finding Nom (Bld) Normal Normal [facility] Platelets Auto (Bld) [#/Vol] Ordered By: Ayanna Vicente on 04-09-2023 Platelets (Bld) [#/Vol] 211 10*3/uL 150-450 [facility] Potassium [Moles/volume] in Serum or PlasmaOrdered By: Ayanna Vicente on 04-09-2023 Potassium [Moles/Vol] 5.0 mmol/L 3.5-5.1 [facility] Protein [Mass/volume] in Ser um or PlasmaOrdered By: Ayanna Vicente on 04-09-2023 Protein [Mass/Vol] 6.6 g/dL 6.4-8.9 [facility] RBC Auto (Bld) [#/Vol]Ordere d By: Ayanna Vicente on 04-09-2023 RBC (Bld) [#/Vol] 4.20 10*6/uL 3.60-5.00 [facility] RBC morphologyOrdered By: Vasile Vicente on 04-09-2023 RBC morphology finding Nom (Bld) N/A [facility] Segmented neutrophils/100 WB C Manual cnt (Bld)Ordered By: Ayanna Vicente on 04-09-2023 Segmented neutrophils/100 WBC (Bld) 27 % 50-70 [facility] Serum or plasma albumin/glob ulin mass ratioOrdered By: Ayanna Vicente on 04-09-2023 Albumin/Globulin [Mass ratio] 1.8 {ratio} [facility] Serum or plasma anion gap de terminationOrdered By: Ayanna Vicente on 04-09-2023 Anion gap [Moles/Vol] 10.5 mmol/L 6.0-15.0 [facility] Serum or plasma high density lipoprotein (HDL) cholesterol measurementOrdered By: Ayanna Vicente on 04-09-2023 Cholesterol in HDL [Mass/Vol] 42 mg/dL 23-92 [facility] Comment on above: HDL CHOL ATP-III CLA SSIFICATION Cardiovascular RiskHDL > or equal to 60 mg/dL LOWHDL < 40 mg/dL HIGH Serum or plasma total choles terol/high density lipoprotein (HDL) cholesterol mass ratOrdered By: Ayanna Vicente on 04-09-2023 Cholesterol.total/Cholest keena in HDL [Mass ratio] 3.3 {ratio} <5.0 [facility] Sodium [Moles/volume] in Ser um or PlasmaOrdered By: Ayanna Vicente on 04-09-2023 Sodium [Moles/Vol] 140 mmol/L 136-145 [facility] Thyrotropin [Units/volume] i n Serum or PlasmaOrdered By: Ayanna Vicente on 04-09-2023 TSH Qn 1.62 m[IU]/L 0.45-5.33 [facility] Thyroxine (T4) free [Mass/vo lume] in Serum or PlasmaOrdered By: Ayanna Vicente on 04-09-2023 Free T4 [Mass/Vol] 0.78 ng/dL 0.61-1.12 [facility] Triglyceride [Mass/volume] i n Serum or PlasmaOrdered By: Ayanna Vicente on 04-09-2023 Triglyceride [Mass/Vol] 349 mg/dL 0-149 [facility] Comment on above: TRIG ATP III CLASSIF ICATIONTRIG less than 150 mg/dL NormalTRIG 150-199 mg/dL Borderline highTRIG 200-500 mg/dL High TRIG greater than 500 mg/dL Very highStandard traceable to the Center for Disease Conrtrol and Prevention (CDC) test method. Triiodothyronine (T3) Free [ Mass/volume] in Serum or PlasmaOrdered By: Ayanna Vicente on 04-09-2023 Free T3 [Mass/Vol] 2.71 pg/mL 2.50-3.90 [facility] Urea nitrogen [Mass/volume] in Serum or PlasmaOrdered By: Ayanna Vicente on 04-09-2023 Urea nitrogen [Mass/Vol] 28 mg/dL 7-25 [facility] Variant lymphocytes/100 WBC Manual cnt (Bld)Ordered By: Ayanna Vicente on 04-09-2023 Variant lymphocytes/100 WBC (Bld) 1 % 0-12 [facility] WBC Auto (Bld) [#/Vol]Ordere d By: Ayanna Vicente on 04-09-2023 WBC (Bld) [#/Vol] 15.3 10*3/uL 3.8-11.6 [facility] Alanine aminotransferase [En zymatic activity/volume] in Serum or PlasmaOrdered By: Ayanna Vicente on 09-30-2022 ALT [Catalytic activity/Vol] 25 U/L 7-52 [facility] Albumin [Mass/volume] in Ser um or Plasma by Bromocresol green (BCG) dye binding methoOrdered By: Ayanna Vicente on 09-30-2022 Albumin BCG dye [Mass/Vol] 4.3 g/dL 3.5-5.7 [facility] Alkaline phosphatase [Enzyma tic activity/volume] in Serum or PlasmaOrdered By: Ayanna Vicente on 09-30-2022 ALP [Catalytic activity/Vol] 97 U/L 34-104 [facility] Anisocytosis LM Ql (Bld)Orde red By: Ayanna Vicente on 09-30-2022 Anisocytosis Ql (Bld) Slight Fir [facility] Aspartate aminotransferase [ Enzymatic activity/volume] in Serum or PlasmaOrdered By: Ayanna Vicente on 09-30-2022 AST [Catalytic activity/Vol] 22 U/L 13-39 [facility] Basophils Auto (Bld) [#/Vol] Ordered By: Ayanna Vicente on 09-30-2022 Basophils (Bld) [#/Vol] 0.0 10*3/uL 0.0-0.2 [facility] Basophils/100 WBC Auto (Bld) Ordered By: Ayanna Vicente on 09-30-2022 Basophils/100 WBC (Bld) 0.3 % . [facility] Bilirubin.total [Mass/volume ] in Serum or PlasmaOrdered By: Ayanna Vicente on 09-30-2022 Bilirubin [Mass/Vol] 0.3 mg/dL 0.3-1.0 [facility] Calcium [Mass/volume] in Ser um or PlasmaOrdered By: Ayanna Vicente on 09-30-2022 Calcium [Mass/Vol] 9.3 mg/dL 8.6-10.3 [facility] Carbon dioxide, total [Moles /volume] in Serum or PlasmaOrdered By: Ayanna Vicente on 09-30-2022 CO2 [Moles/Vol] 30.4 mmol/L 21.0-31.0 [facility] Chloride [Moles/volume] in S ebony or PlasmaOrdered By: Ayanna Vicente on 09-30-2022 Chloride [Moles/Vol] 104 mmol/L 98-107 [facility] Cholesterol [Mass/volume] in Serum or PlasmaOrdered By: Ayanna Vicente on 09-30-2022 Cholesterol [Mass/Vol] 117 mg/dL 140-200 [facility] Comment on above: Chol less than 200 m g/dl low riskChol 201-239 mg/dl borderline riskChol 240 mg/dl and greater high risk Cholesterol in LDL Calc [Mas s/Vol]Ordered By: Ayanna Vicente on 09-30-2022 Cholesterol in LDL [Mass/Vol] 35 mg/dL 0-100 [facility] Comment on above: LDL ATP III CLASSIFI CATIONLDL less than 100 mg/dL OptimalLDL 100-129 mg/dL Near or above optimalLDL 130-159 mg/dL Borderline highLDL 160-189 mg/dL HighLDL greater than 189 mg/dL Very high Cholesterol in VLDL Calc [Ma ss/Vol]Ordered By: Ayanna Vicente on 09-30-2022 Cholesterol in VLDL [Mass/Vol] 43 mg/dL [facility] Creatinine [Mass/volume] in Serum or PlasmaOrdered By: Ayanna Vicente on 09-30-2022 Creatinine [Mass/Vol] 1.25 mg/dL 0.60-1.20 [facility] Eosinophils Auto (Bld) [#/Vo l]Ordered By: Ayanna Vicente on 09-30-2022 Eosinophils (Bld) [#/Vol] 0.3 10*3/uL 0.0-0.45 [facility] Eosinophils/100 WBC Auto (Bl d)Ordered By: Ayanna Vicente on 09-30-2022 Eosinophils/100 WBC (Bld) 2.3 % . [facility] Erythrocyte distribution wid th Auto (RBC) [Ratio]Ordered By: Ayanna Vicente on 09-30-2022 Erythrocyte distribution width (RBC) [Ratio] 15.4 % 11.9-15.3 [facility] Globulin Calc (S) [Mass/Vol] Ordered By: Ayanna Vicente on 09-30-2022 Globulin (S) [Mass/Vol] 2.4 g/dL [facility] Glucose [Mass/volume] in Ser um or PlasmaOrdered By: Ayanna Vicente on 09-30-2022 Glucose [Mass/Vol] 135 mg/dL 74-109 [facility] Comment on above: ADA recommended [...] from glycated hemoglobin (Bld) [Mass/Vol] 203 mg/dL [facility] Hematocrit Auto (Bld) [Volum e fraction]Ordered By: Ayanna Vicente on 09-30-2022 Hematocrit (Bld) [Volume fraction] 37.0 % 34.0-46.4 [facility] Hemoglobin A1c percentageOrd ered By: Ayanna Vicente on 09-30-2022 HbA1c (Bld) [Mass fraction] 8.7 % 4.3-5.6 [facility] Comment on above: Increased risk for d iabetes: 5.7 - 6.4diabetes: >6.4glycemic control for adults with diabetes: <7.0 Hemoglobin [Mass/volume] in BloodOrdered By: Ayanna Vicente on 09-30-2022 Hemoglobin (Bld) [Mass/Vol] 12.1 g/dL 11.8-15.4 [facility] Laboratory - Chemistry and C hemistry - challengeOrdered By: Ayanna Vicente on 09-30-2022 GFR/1.73 sq M.predicted MDRD (S/P/Bld) [Vol rate/Area] 43.572 mL/min/{1.73_m2} [facility] Leukocytes [#/volume] correc andreina for nucleated erythrocytes in Blood by Automated counOrdered By: Ayanna Vicente on 09-30-2022 WBC corrected for nucl RBC Auto (Bld) [#/Vol] 15.2 10*3/uL 3.8-11.6 [facility] Lymphocytes Auto (Bld) [#/Vo l]Ordered By: Ayanna Vicente on 09-30-2022 Lymphocytes (Bld) [#/Vol] 10.5 10*3/uL 1.00-4.8 [facility] Lymphocytes/100 WBC Auto (Bl d)Ordered By: Ayanna Vicente on 09-30-2022 Lymphocytes/100 WBC (Bld) 69.4 % . [facility] MCH Auto (RBC) [Entitic mass ]Ordered By: Ayanna Vicente on 09-30-2022 MCH (RBC) [Entitic mass] 28.4 pg 24.7-34.3 [facility] MCHC Auto (RBC) [Mass/Vol]Or dered By: Ayanna Vicente on 09-30-2022 MCHC (RBC) [Mass/Vol] 32.7 g/dL 32.0-35.0 Fir [facility] MCV Auto (RBC) [Entitic vol] Ordered By: Ayanna Vicente on 09-30-2022 MCV (RBC) [Entitic vol] 86.9 fL 80-100 [facility] Microalbumin [Mass/volume] i n UrineOrdered By: Ayanna Vicente on 09-30-2022 Albumin DL <= 20 mg/L (U) [Mass/Vol] 1.9 mg/dL 0.0-1.8 [facility] Monocytes Auto (Bld) [#/Vol] Ordered By: Ayanna Vicente on 09-30-2022 Monocytes (Bld) [#/Vol] 0.7 10*3/uL 0.0-0.8 [facility] Monocytes/100 WBC Auto (Bld) Ordered By: Ayanna Vicente on 09-30-2022 Monocytes/100 WBC (Bld) 4.5 % . [facility] Neutrophils Auto (Bld) [#/Vo l]Ordered By: Ayanna Vicente on 09-30-2022 Neutrophils (Bld) [#/Vol] 3.6 10*3/uL 1.8-7.7 [facility] Neutrophils/100 WBC Auto (Bl d)Ordered By: Ayanna Vicente on 09-30-2022 Neutrophils/100 WBC (Bld) 23.5 % . [facility] No Panel InformationOrdered By: Ayanna Vicente on 09-30-2022 Pharmacy Creatinine Clearance (Chem N/A [facility] Nucleated erythrocytes [Pres ence] in Blood by Automated countOrdered By: Ayanna Vicente on 09-30-2022 Nucleated RBC Auto Ql (Bld) 0.6 /100{WBC} 0-0.5 [facility] Ovalocyte detectionOrdered B y: Ayanna Vicente on 09-30-2022 Ovalocytes LM Ql (Bld) Slight [facility] Platelet adequacy [Presence] in Blood by Light microscopyOrdered By: Ayanna Vicente on 09-30-2022 Platelets LM Ql (Bld) Normal Normal [facility] Platelet mean volume Auto (B ld) [Entitic vol]Ordered By: Ayanna Vicente on 09-30-2022 Platelet mean volume (Bld) [Entitic vol] 8.9 fL 6.3-10.7 [facility] Platelet morphology finding [Identifier] in BloodOrdered By: Ayanna Vicente on 09-30-2022 Platelet morphology finding Nom (Bld) Normal Normal [facility] Platelets Auto (Bld) [#/Vol] Ordered By: Ayanna Vicente on 09-30-2022 Platelets (Bld) [#/Vol] 230 10*3/uL 150-450 [facility] Poikilocytosis [Presence] in Blood by Light microscopyOrdered By: yAanna Vicente on 09-30-2022 Poikilocytosis LM Ql (Bld) Slight [facility] Potassium [Moles/volume] in Serum or PlasmaOrdered By: yAanna Vicente on 09-30-2022 Potassium [Moles/Vol] 4.5 mmol/L 3.5-5.1 [facility] Protein [Mass/volume] in Ser um or PlasmaOrdered By: Ayanna Vicente on 09-30-2022 Protein [Mass/Vol] 6.7 g/dL 6.4-8.9 [facility] RBC Auto (Bld) [#/Vol]Ordere d By: Ayanna Vicente on 09-30-2022 RBC (Bld) [#/Vol] 4.26 10*6/uL 3.60-5.00 [facility] RBC morphologyOrdered By: Vasile Vicente on 09-30-2022 RBC morphology finding Nom (Bld) N/A [facility] Serum or plasma albumin/glob ulin mass ratioOrdered By: Ayanna Vicente on 09-30-2022 Albumin/Globulin [Mass ratio] 1.8 {ratio} [facility] Serum or plasma anion gap de terminationOrdered By: Ayanna Vicente on 09-30-2022 Anion gap [Moles/Vol] 12.1 mmol/L 6.0-15.0 [facility] Serum or plasma high density lipoprotein (HDL) cholesterol measurementOrdered By: Ayanna Vicente on 09-30-2022 Cholesterol in HDL [Mass/Vol] 39 mg/dL 35-85 [facility] Comment on above: HDL CHOL ATP-III CLA SSIFICATION Cardiovascular RiskHDL > or equal to 60 mg/dL LOWHDL < 40 mg/dL HIGH Serum or plasma total choles terol/high density lipoprotein (HDL) cholesterol mass ratOrdered By: Ayanna Vicente on 09-30-2022 Cholesterol.total/Cholest keena in HDL [Mass ratio] 3.0 {ratio} <5.0 [facility] Sodium [Moles/volume] in Ser um or PlasmaOrdered By: Ayanna Vicente on 09-30-2022 Sodium [Moles/Vol] 142 mmol/L 136-145 [facility] Thyrotropin [Units/volume] i n Serum or PlasmaOrdered By: Ayanna Vicente on 09-30-2022 TSH Qn 2.04 m[IU]/L 0.45-5.33 [facility] Thyroxine (T4) free [Mass/vo lume] in Serum or PlasmaOrdered By: Ayanna Vicente on 09-30-2022 Free T4 [Mass/Vol] 0.86 ng/dL 0.61-1.12 [facility] Triglyceride [Mass/volume] i n Serum or PlasmaOrdered By: Ayanna Vicente on 09-30-2022 Triglyceride [Mass/Vol] 216 mg/dL 0-149 [facility] Comment on above: TRIG ATP III CLASSIF ICATIONTRIG less than 150 mg/dL NormalTRIG 150-199 mg/dL Borderline highTRIG 200-500 mg/dL High TRIG greater than 500 mg/dL Very highStandard traceable to the Center for Disease Conrtrol and Prevention (CDC) test method. Triiodothyronine (T3) Free [ Mass/volume] in Serum or PlasmaOrdered By: Ayanna Vicente on 03-20-2023 Free T3 [Mass/Vol] 3.13 pg/mL 2.50-3.90 [facility] Urea nitrogen [Mass/volume] in Serum or PlasmaOrdered By: Ayanna Vicente on 09-30-2022 Urea nitrogen [Mass/Vol] 33 mg/dL 7-25 [facility] WBC Auto (Bld) [#/Vol]Ordere d By: Ayanna Vicente on 09-30-2022 WBC (Bld) [#/Vol] 15.2 10*3/uL 3.8-11.6 [facility] No Panel InformationOrdered By: Ayanna Vicente on 04-23-2022 25-Hydroxy Vitamin D Total 49.9 ng/mL 30-100 [facility] Comment on above: VITAMIN D STATUS 25( [place])VITAMIN D RANGE (ng/mL) Deficient <20 Insufficient 20 to <30Sufficient 30 to 100Reference: Nile MF,Joon HOPKINS, Chon ROD, et al. Evaluation,treatment, and prevention of vitamin D deficiency; an Endocrine Society clinical practice guideline. JCEM. 2010; 96(7):1911-30. LD LACTATE DEHYDROon 022 LDH [Catalytic activity/Vol] 202 U/L 135 - 214 U/L [facility] Albumin [Mass/volume] in Ser um or PlasmaOrdered By: Ayanna Vicente on 04-01-2022 Albumin [Mass/Vol] 3.5 g/dL 3.2-5.5 [facility] Basophils Auto (Bld) [#/Vol] Ordered By: Ayanna Vicente on 04-01-2022 Basophils (Bld) [#/Vol] N/A [facility] Basophils/100 WBC Auto (Bld) Ordered By: Ayanna Vicente on 04-01-2022 Basophils/100 WBC (Bld) N/A [facility] Blood anisocytosis detection Ordered By: Ayanna Vicente on 04-01-2022 Anisocytosis Ql (Bld) Slight Fir [facility] Blood hemoglobin measurement (mass/volume)Ordered By: Ayanna Vicente on 04-01-2022 Hemoglobin (Bld) [Mass/Vol] 12.3 g/dL 11.8-15.4 [facility] Blood leukocytes automated c ount (number/volume)Ordered By: Ayanna Vicente on 04-01-2022 WBC (Bld) [#/Vol] 12.0 10*3/uL 4.5-11.0 [facility] Cerebrospinal fluid unidenti fied cells/100 leukocytesOrdered By: Ayanna Vicente on 04-01-2022 Unidentified cells/100 WBC (CSF) 2 % 0-0 [facility] Comment on above: PRO LYMPHOCYTE Cholesterol [Mass/volume] in Serum or PlasmaOrdered By: Ayanna Vicente on 04-01-2022 Cholesterol [Mass/Vol] 102 mg/dL 140-200 [facility] Comment on above: Chol less than 200 m g/dl low risk Chol 201-239 mg/dl borderline risk Chol 240 mg/dl and greater high risk Chol less than 200 m g/dl low riskChol 201-239 mg/dl borderline riskChol 240 mg/dl and greater high risk Cholesterol in LDL Calc [Mas s/Vol]Ordered By: Ayanna Vicente on 04-01-2022 Cholesterol in LDL [Mass/Vol] 27 mg/dL 0-100 [facility] Comment on above: LDL ATP III CLASSIFI [...] 04-01-2022 Cholesterol in VLDL [Mass/Vol] 25 mg/dL [facility] Creatinine and Glomerular fi ltration rate.predicted panel (S/P/Bld)Ordered By: Ayanna Vicente on 04-01-2022 Creatinine [Mass/Vol] 0.84 mg/dL 0.44-1.03 [facility] Eosinophils Auto (Bld) [#/Vo l]Ordered By: Ayanna Vicente on 04-01-2022 Eosinophils (Bld) [#/Vol] N/A [facility] Eosinophils/100 WBC Auto (Bl d)Ordered By: Ayanna Vicente on 04-01-2022 Eosinophils/100 WBC (Bld) N/A [facility] Erythrocyte distribution wid th Auto (RBC) [Ratio]Ordered By: Ayanna Vicente on 04-01-2022 Erythrocyte distribution width (RBC) [Ratio] 17.0 % 11.9-15.3 [facility] Estimated glomerular filtrat ion rate (GFR) non- AmericanOrdered By: Ayanna Vicente on 04-01-2022 GFR/1.73 sq M.predicted among non-blacks MDRD (S/P/Bld) [Vol rate/Area] > 60 mL/Min [facility] Globulin Calc (S) [Mass/Vol] Ordered By: Ayanna Vicente on 04-01-2022 Globulin (S) [Mass/Vol] 2.9 g/dL [facility] Glucose mean value [Mass/vol ume] in Blood Estimated from glycated hemoglobinOrdered By: Ayanna Vicente on 04-01-2022 Average glucose Estimated from glycated hemoglobin (Bld) [Mass/Vol] 255 mg/dL [facility] Hematocrit Auto (Bld) [Volum e fraction]Ordered By: Ayanna Vicente on 04-01-2022 Hematocrit (Bld) [Volume fraction] 37.9 % 34.0-46.4 [facility] Hemoglobin A1c percentageOrd ered By: Ayanna Vicente on 04-01-2022 HbA1c (Bld) [Mass fraction] 10.5 % 4.3-5.6 [facility] Comment on above: Increased risk for d iabetes: 5.7 - 6.4 diabetes: >6.4 glycemic control for adults with diabetes: <7.0 Increased risk for d iabetes: 5.7 - 6.4diabetes: >6.4glycemic control for adults with diabetes: <7.0 Laboratory - Hematology and Cell countsOrdered By: Ayanna Vicente on 04-01-2022 Nucleated RBC/100 WBC (Bld) [Ratio] 0.2 % 0-0.5 [facility] Lymphocytes Auto (Bld) [#/Vo l]Ordered By: Ayanna Vicente on 04-01-2022 Lymphocytes (Bld) [#/Vol] N/A [facility] Lymphocytes/100 WBC Auto (Bl d)Ordered By: Ayanna Vicente on 04-01-2022 Lymphocytes/100 WBC (Bld) N/A [facility] Lymphocytes/100 WBC (Bld) 60 % 18-42 [facility] Lymphocytes/100 WBC Manual c nt (Bld)Ordered By: Ayanna Vicente on 04-01-2022 Lymphocytes/100 WBC (Bld) 3 % 0-12 [facility] MCH Auto (RBC) [Entitic mass ]Ordered By: Ayanna Vicente on 04-01-2022 MCH (RBC) [Entitic mass] 28.3 pg 24.7-34.3 [facility] MCHC Auto (RBC) [Mass/Vol]Or dered By: Ayanna Vicente on 04-01-2022 MCHC (RBC) [Mass/Vol] 32.4 g/dL 32.0-35.0 [facility] MCV Auto (RBC) [Entitic vol] Ordered By: Ayanna Vicente on 04-01-2022 MCV (RBC) [Entitic vol] 87.6 fL 80-100 [facility] Manual blood monocytes/100 l eukocytesOrdered By: Ayanna Vicente on 04-01-2022 Monocytes/100 WBC (Bld) 3 % 1-3 [facility] Monocytes Auto (Bld) [#/Vol] Ordered By: Ayanna Vicente on 04-01-2022 Monocytes (Bld) [#/Vol] N/A [facility] Monocytes/100 WBC Auto (Bld) Ordered By: Ayanna Vicente on 04-01-2022 Monocytes/100 WBC (Bld) N/A [facility] Neutrophils Auto (Bld) [#/Vo l]Ordered By: Ayanna Vicente on 04-01-2022 Neutrophils (Bld) [#/Vol] N/A [facility] Neutrophils/100 WBC Auto (Bl d)Ordered By: Ayanna Vicente on 04-01-2022 Neutrophils/100 WBC (Bld) N/A [facility] No Panel InformationOrdered By: Ayanna Vicente on 04-01-2022 Estimated GFR () > 60 mL/Min [facility] Comment on above: GFR estimated refere nce range: According to KDOQI guidelines, <60 ml/min/1.73m2 is sufficient to diagnose a patient with chronic kidney disease. Pharmacy Creatinine Clearance (Chem N/A [facility] Platelet Estimate Normal Normal [facility] Platelet Morphology Comment Normal Normal [facility] Smudge Cells Few [facility] Platelet mean volume Auto (B ld) [Entitic vol]Ordered By: Ayanna Vicente on 04-01-2022 Platelet mean volume (Bld) [Entitic vol] 9.3 fL 6.3-10.7 [facility] Platelets Auto (Bld) [#/Vol] Ordered By: Ayanna Vicente on 04-01-2022 Platelets (Bld) [#/Vol] 224 10*3/uL 150-450 [facility] Protein [Mass/volume] in Ser um or PlasmaOrdered By: Ayanna Vicente on 04-01-2022 Protein [Mass/Vol] 6.4 g/dL 6.1-7.9 [facility] RBC Auto (Bld) [#/Vol]Ordere d By: Ayanna Vicente on 04-01-2022 RBC (Bld) [#/Vol] 4.33 10*6/uL 3.60-5.00 [facility] RBC morphologyOrdered By: Vasile Vicente on 04-01-2022 RBC morphology finding Nom (Bld) N/A [facility] Segmented neutrophils/100 WB C Manual cnt (Bld)Ordered By: Ayanna Vicente on 04-01-2022 Segmented neutrophils/100 WBC (Bld) 29 % 50-70 [facility] Serum or plasma alanine roman otransferase measurement without P-5'-P (enzymatic activiOrdered By: Ayanna Vicente on 04-01-2022 ALT No additional P-5'-P [Catalytic activity/Vol] 24 U/L 10-60 [facility] Serum or plasma albumin/glob ulin mass ratioOrdered By: Ayanna Vicente on 04-01-2022 Albumin/Globulin [Mass ratio] 1.2 {ratio} [facility] Serum or plasma alkaline mayelin sphatase measurement (enzymatic activity/volume)Ordered By: Ayanna Vicente on 04-01-2022 ALP [Catalytic activity/Vol] 75 U/L 32-92 [facility] Serum or plasma anion gap de terminationOrdered By: Ayanna Vicente on 04-01-2022 Anion gap [Moles/Vol] 15.8 mmol/L 6.0-15.0 [facility] Serum or plasma aspartate am inotransferase measurement (enzymatic activity/volume)Ordered By: Ayanna Vicente on 04-01-2022 AST [Catalytic activity/Vol] 26 U/L 10-42 [facility] Serum or plasma calcium massimo urement (mass/volume)Ordered By: Ayanna Vicente on 04-01-2022 Calcium [Mass/Vol] 9.3 mg/dL 8.2-10.2 [facility] Serum or plasma chloride chris surement (moles/volume)Ordered By: Ayanna Vicente on 04-01-2022 Chloride [Moles/Vol] 103 mmol/L 95-114 [facility] Serum or plasma glucose massimo urement (mass/volume)Ordered By: Ayanna Vicente on 04-01-2022 Glucose [Mass/Vol] 163 mg/dL 70-100 [facility] Comment on above: ADA recommended [...] Cholesterol in HDL [Mass/Vol] 50 mg/dL 35-85 [facility] Comment on above: HDL CHOL ATP-III CLA SSIFICATION Cardiovascular Risk HDL > or equal to 60 mg/dL LOW HDL < 40 mg/dL HIGH HDL CHOL ATP-III CLA SSIFICATION Cardiovascular RiskHDL > or equal to 60 mg/dL LOWHDL < 40 mg/dL HIGH Serum or plasma potassium me asurement (moles/volume)Ordered By: Ayanna Vicente on 04-01-2022 Potassium [Moles/Vol] 4.4 mmol/L 3.5-5.1 [facility] Serum or plasma sodium measu rement (moles/volume)Ordered By: Ayanna Vicente on 04-01-2022 Sodium [Moles/Vol] 141 mmol/L 136-146 [facility] Serum or plasma total biliru bin measurement (mass/volume)Ordered By: Ayanna Vicente on 04-01-2022 Bilirubin [Mass/Vol] 0.3 mg/dL 0.3-1.2 [facility] Serum or plasma total carbon dioxide measurement (moles/volume)Ordered By: Ayanna Vicente on 04-01-2022 CO2 [Moles/Vol] 26.6 mmol/L 22.0-30.0 [facility] Serum or plasma total choles terol/high density lipoprotein (HDL) cholesterol mass ratOrdered By: Ayanna Vicente on 04-01-2022 Cholesterol.total/Cholest keena in HDL [Mass ratio] 2.0 {ratio} <5.0 [facility] Serum or plasma urea nitroge n measurement (mass/volume)Ordered By: Ayanna Vicente on 04-01-2022 Urea nitrogen [Mass/Vol] 12 mg/dL 9- [facility] TSH DL <= 0.005 mIU/L QnOrde red By: Ayanna Vicente on 04-01-2022 TSH Qn 1.11 m[IU]/L 0.45-5.33 [facility] Thyroxine (T4) free [Mass/vo lume] in Serum or PlasmaOrdered By: Ayanna Vicente on 04-01-2022 Free T4 [Mass/Vol] 1.02 ng/dL 0.61-1.12 [facility] Triglyceride [Mass/volume] i n Serum or PlasmaOrdered By: Ayanna Vicente on 04-01-2022 Triglyceride [Mass/Vol] 125 mg/dL 35-149 [facility] Comment on above: TRIG ATP III CLASSIF [...] 04-01-2022 Free T3 [Mass/Vol] 2.81 pg/mL 2.50-3.90 [facility] Glucose Glucometer (BldC) [M ass/Vol]Ordered By: Galo Max on 01-26-2022 Glucose [Mass/Vol] 117 mg/dL [facility] Comment on above: Random Glucose Refer ence Range is dependent on time and content of last meal. Glucose of more than 200 mg/dL in a nonstressed, ambulatory subject supports the diagnosis of Diabetes Mellitus. Basophils Auto (Bld) [#/Vol] Ordered By: Ashley Ramos on 01-25-2022 Basophils (Bld) [#/Vol] 0.0 10*3/uL 0.0-0.2 [facility] Basophils/100 WBC Auto (Bld) Ordered By: Ashley Ramos on 01-25-2022 Basophils/100 WBC (Bld) 0.3 % . [facility] Blood hemoglobin measurement (mass/volume)Ordered By: Ashley Ramos on 01-25-2022 Hemoglobin (Bld) [Mass/Vol] 11.0 g/dL 11.8-15.4 [facility] Blood leukocytes automated c ount (number/volume)Ordered By: Ashley Ramos on 01-25-2022 WBC (Bld) [#/Vol] 9.5 10*3/uL 4.5-11.0 [facility] Creatinine and Glomerular fi ltration rate.predicted panel (S/P/Bld)Ordered By: Ashley Ramos on 01-25-2022 Creatinine [Mass/Vol] 0.78 mg/dL 0.44-1.03 [facility] Eosinophils Auto (Bld) [#/Vo l]Ordered By: Ashley Ramos on 01-25-2022 Eosinophils (Bld) [#/Vol] 0.3 10*3/uL 0.0-0.45 [facility] Eosinophils/100 WBC Auto (Bl d)Ordered By: Ashley Ramos on 01-25-2022 Eosinophils/100 WBC (Bld) 3.6 % . [facility] Erythrocyte distribution wid th Auto (RBC) [Ratio]Ordered By: Ashley Ramos on 01-25-2022 Erythrocyte distribution width (RBC) [Ratio] 15.4 % 11.9-15.3 [facility] Estimated glomerular filtrat ion rate (GFR) non- AmericanOrdered By: Ashley Ramos on 01-25-2022 GFR/1.73 sq M.predicted among non-blacks MDRD (S/P/Bld) [Vol rate/Area] > 60 mL/Min [facility] [facility] Hematocrit Auto (Bld) [Volum e fraction]Ordered By: Ashley Ramos on 01-25-2022 Hematocrit (Bld) [Volume fraction] 33.2 % 34.0-46.4 [facility] - Hematology and Cell countsOrdered By: Ashley Ramos on 01-25-2022 Nucleated RBC/100 WBC (Bld) [Ratio] 0.2 % 0-0.5 [facility] Lymphocytes Auto (Bld) [#/Vo l]Ordered By: Ashley Ramos on 01-25-2022 Lymphocytes (Bld) [#/Vol] 6.4 10*3/uL 1.00-4.8 [facility] Lymphocytes/100 WBC Auto (Bl d)Ordered By: Ashley Ramos on 01-25-2022 Lymphocytes/100 WBC (Bld) 67.6 % . [facility] MCH Auto (RBC) [Entitic mass ]Ordered By: Ashley Ramos on 01-25-2022 MCH (RBC) [Entitic mass] 28.7 pg 24.7-34.3 [facility] MCHC Auto (RBC) [Mass/Vol]Or dered By: Ashley Ramos on 01-25-2022 MCHC (RBC) [Mass/Vol] 33.3 g/dL 32.0-35.0 [facility] MCV Auto (RBC) [Entitic vol] Ordered By: Ashley Ramos on 01-25-2022 MCV (RBC) [Entitic vol] 86.3 fL 80-100 [facility] Monocytes Auto (Bld) [#/Vol] Ordered By: Ashley Ramos on 01-25-2022 Monocytes (Bld) [#/Vol] 0.7 10*3/uL 0.0-0.8 [facility] Monocytes/100 WBC Auto (Bld) Ordered By: Ashley Ramos on 01-25-2022 Monocytes/100 WBC (Bld) 7.4 % . F [facility] Neutrophils Auto (Bld) [#/Vo l]Ordered By: Ashley Ramos on 01-25-2022 Neutrophils (Bld) [#/Vol] 2.0 10*3/uL 1.8-7.7 [facility] Neutrophils/100 WBC Auto (Bl d)Ordered By: Ashley Ramos on 01-25-2022 Neutrophils/100 WBC (Bld) 21.1 % . [facility] No Panel InformationOrdered By: Ashley Ramos on 01-25-2022 Estimated GFR () > 60 mL/Min [facility] Comment on above: GFR estimated refere nce range: According to KDOQI guidelines, <60 ml/min/1.73m2 is sufficient to diagnose a patient with chronic kidney disease. Pharmacy Creatinine Clearance (Chem 76.46 [facility] Platelet Estimate Normal Normal [facility] Platelet Morphology Comment Normal Normal [facility] Smudge Cells Few [facility] Platelet mean volume Auto (B ld) [Entitic vol]Ordered By: Ashley Ramos on 01-25-2022 Platelet mean volume (Bld) [Entitic vol] 8.6 fL 6.3-10.7 [facility] Platelets Auto (Bld) [#/Vol] Ordered By: Ahsley Ramos on 01-25-2022 Platelets (Bld) [#/Vol] 240 10*3/uL 150-450 [facility] RBC Auto (Bld) [#/Vol]Ordere d By: Ashley Ramos on 01-25-2022 RBC (Bld) [#/Vol] 3.84 10*6/uL 3.60-5.00 [facility] RBC morphologyOrdered By: Kendall wheatley Rachel on 01-25-2022 RBC morphology finding Nom (Bld) Normal [facility] Serum or plasma calcium massimo urement (mass/volume)Ordered By: Ashley Ramos on 01-25-2022 Calcium [Mass/Vol] 8.7 mg/dL 8.2-10.2 [facility] Serum or plasma chloride chris surement (moles/volume)Ordered By: Ashley Ramos on 01-25-2022 Chloride [Moles/Vol] 101 mmol/L 95-114 [facility] Serum or plasma glucose massimo urement (mass/volume)Ordered By: Ashley Ramos on 01-25-2022 Glucose [Mass/Vol] 133 mg/dL 70-100 [facility] Comment on above: ADA recommended [...] on 01-25-2022 Potassium [Moles/Vol] 4.0 mmol/L 3.5-5.1 [facility] Serum or plasma sodium measu rement (moles/volume)Ordered By: Ashley Ramos on 01-25-2022 Sodium [Moles/Vol] 141 mmol/L 136-146 [facility] Serum or plasma total carbon dioxide measurement (moles/volume)Ordered By: Ashley Ramos on 01-25-2022 CO2 [Moles/Vol] 30.7 mmol/L 22.0-30.0 [facility] Serum or plasma urea nitroge n measurement (mass/volume)Ordered By: Ashley Ramos on 01-25-2022 Urea nitrogen [Mass/Vol] 14 mg/dL 9-23 [facility] No Panel InformationOrdered By: Galo Max on 01-24-2022 Bedside Glucose Comment Glu2: cleaned meter [facility] Bacterial blood cultureOrder ed By: James Redding on 01-18-2022 Bacteria identified Cx Nom (Bld) NO GROWTH 5 DAYS [facility] Albumin [Mass/volume] in Ser um or PlasmaOrdered By: Galo Max on 01-16-2022 Albumin [Mass/Vol] 3.1 g/dL 3.2-5.5 [facility] Blood acanthocytes detection by light microscopyOrdered By: Galo Max on 01-16-2022 Acanthocytes LM Ql (Bld) Rare [facility] Globulin Calc (S) [Mass/Vol] Ordered By: Galo Max on 01-16-2022 Globulin (S) [Mass/Vol] 3.0 g/dL F [facility] No Panel InformationOrdered By: Galo Max on 01-16-2022 CBC Comment See comment [facility] Comment on above: Slide referred to joshua thologist for review Protein [Mass/volume] in Ser um or PlasmaOrdered By: Galo Max on 01-16-2022 Protein [Mass/Vol] 6.1 g/dL 6.1-7.9 [facility] Serum or plasma alanine roman otransferase measurement without P-5'-P (enzymatic activiOrdered By: Galo Max on 01-16-2022 ALT No additional P-5'-P [Catalytic activity/Vol] 24 U/L 10-60 [facility] Serum or plasma albumin/glob ulin mass ratioOrdered By: Galo Max on 01-16-2022 Albumin/Globulin [Mass ratio] 1.0 {ratio} [facility] Serum or plasma alkaline mayelin sphatase measurement (enzymatic activity/volume)Ordered By: Galo Max on 01-16-2022 ALP [Catalytic activity/Vol] 88 U/L 32-92 [facility] Serum or plasma aspartate am inotransferase measurement (enzymatic activity/volume)Ordered By: Galo Max on 01-16-2022 AST [Catalytic activity/Vol] 23 U/L 10-42 [facility] Serum or plasma prealbumin m easurement (mass/volume)Ordered By: Galo Max on 01-16-2022 Prealbumin [Mass/Vol] 22.1 mg/dL 18.0-38.0 [facility] Serum or plasma total biliru bin measurement (mass/volume)Ordered By: Galo Max on 01-16-2022 Bilirubin [Mass/Vol] 0.6 mg/dL 0.3-1.2 [facility] Creatinine and Glomerular fi ltration rate.predicted panel (S/P/Bld)Ordered By: Bertram Garrison on 01-15-2022 Creatinine [Mass/Vol] 0.80 mg/dL 0.44-1.03 [facility] Comment on above: Delta: 1.35 on 01/14 Estimated glomerular filtrat ion rate (GFR) non- AmericanOrdered By: Bertram Garrison on 01-15-2022 GFR/1.73 sq M.predicted among non-blacks MDRD (S/P/Bld) [Vol rate/Area] > 60 mL/Min [facility] Glucose Glucometer (BldC) [M ass/Vol]Ordered By: Bertram Garrison on 01-15-2022 Glucose [Mass/Vol] 226 mg/dL [facility] Comment on above: Random Glucose Refer ence Range is dependent on time and content of last meal. Glucose of more than 200 mg/dL in a nonstressed, ambulatory subject supports the diagnosis of Diabetes Mellitus. No Panel InformationOrdered By: Bertram Garrison on 01-15-2022 Bedside Glucose Comment Glu2: cleaned meter [facility] Estimated GFR () > 60 mL/Min [facility] Comment on above: GFR estimated refere nce range: According to KDOQI guidelines, <60 ml/min/1.73m2 is sufficient to diagnose a patient with chronic kidney disease. Pharmacy Creatinine Clearance (Chem 75.85 [facility] Serum or plasma calcium massimo urement (mass/volume)Ordered By: Bertram Garrison on 01-15-2022 Calcium [Mass/Vol] 9.2 mg/dL 8.2-10.2 [facility] Serum or plasma chloride chris surement (moles/volume)Ordered By: Bertram Garrison on 01-15-2022 Chloride [Moles/Vol] 99 mmol/L 95-114 [facility] Serum or plasma glucose massimo urement (mass/volume)Ordered By: Bertram Garrison on 01-15-2022 Glucose [Mass/Vol] 293 mg/dL 70-100 [facility] Comment on above: ADA recommended refe rence range Random Glucose Reference Range is dependent on time and content of last meal. Glucose of more than 200 mg/dL in a nonstressed, ambulatory subject supports the diagnosis of Diabetes Mellitus. Serum or plasma potassium me asurement (moles/volume)Ordered By: Bertram Garrison on 01-15-2022 Potassium [Moles/Vol] 4.3 mmol/L 3.5-5.1 [facility] Serum or plasma sodium measu rement (moles/volume)Ordered By: Bertram Garrison on 01-15-2022 Sodium [Moles/Vol] 136 mmol/L 136-146 [facility] Serum or plasma total carbon dioxide measurement (moles/volume)Ordered By: Bertram Garrison on 01-15-2022 CO2 [Moles/Vol] 29.1 mmol/L 22.0-30.0 [facility] Serum or plasma urea nitroge n measurement (mass/volume)Ordered By: Bertram Garrison on 01-15-2022 Urea nitrogen [Mass/Vol] 23 mg/dL 9-23 [facility] Urine culture routineOrdered By: James Redding on 01-15-2022 Bacteria identified Cx Nom (U) Enterococcus faecalis [facility] Basophils Auto (Bld) [#/Vol] Ordered By: Bertram Garrison on 01-14-2022 Basophils (Bld) [#/Vol] 0.1 10*3/uL 0.0-0.2 [facility] Basophils/100 WBC Auto (Bld) Ordered By: Bertram Garrison on 01-14-2022 Basophils/100 WBC (Bld) 0.6 % . F [facility] Blood acanthocytes detection by light microscopyOrdered By: Bertram Garrison on 01-14-2022 Acanthocytes LM Ql (Bld) Few [facility] Blood hemoglobin measurement (mass/volume)Ordered By: Bertram Garrison on 01-14-2022 Hemoglobin (Bld) [Mass/Vol] 11.7 g/dL 11.8-15.4 [facility] Blood leukocytes automated c ount (number/volume)Ordered By: Bertram Garrison on 01-14-2022 WBC (Bld) [#/Vol] 11.5 10*3/uL 4.5-11.0 [facility] Eosinophils Auto (Bld) [#/Vo l]Ordered By: Bertram Garrison on 01-14-2022 Eosinophils (Bld) [#/Vol] 0.4 10*3/uL 0.0-0.45 [facility] Eosinophils/100 WBC Auto (Bl d)Ordered By: Bertram Garrison on 01-14-2022 Eosinophils/100 WBC (Bld) 3.3 % . [facility] Erythrocyte distribution wid th Auto (RBC) [Ratio]Ordered By: Bertram Garrison on 01-14-2022 Erythrocyte distribution width (RBC) [Ratio] 14.4 % 11.9-15.3 [facility] Hematocrit Auto (Bld) [Volum e fraction]Ordered By: Bertram Garrison on 01-14-2022 Hematocrit (Bld) [Volume fraction] 35.4 % 34.0-46.4 [facility] - Hematology and Cell countsOrdered By: Bertram Garrison on 01-14-2022 Nucleated RBC/100 WBC (Bld) [Ratio] 0.3 % 0-0.5 [facility] Lymphocytes Auto (Bld) [#/Vo l]Ordered By: Bertram Garrison on 01-14-2022 Lymphocytes (Bld) [#/Vol] 7.2 10*3/uL 1.00-4.8 [facility] Lymphocytes/100 WBC Auto (Bl d)Ordered By: Bertram Garrison on 01-14-2022 Lymphocytes/100 WBC (Bld) 62.9 % . [facility] MCH Auto (RBC) [Entitic mass ]Ordered By: Bertram Garrison on 01-14-2022 MCH (RBC) [Entitic mass] 28.4 pg 24.7-34.3 [facility] MCHC Auto (RBC) [Mass/Vol]Or dered By: Bertram Garrison on 01-14-2022 MCHC (RBC) [Mass/Vol] 32.9 g/dL 32.0-35.0 [facility] MCV Auto (RBC) [Entitic vol] Ordered By: Bertram Garrison on 01-14-2022 MCV (RBC) [Entitic vol] 86.1 fL 80-100 F [facility] Monocytes Auto (Bld) [#/Vol] Ordered By: Bertram Garrison on 01-14-2022 Monocytes (Bld) [#/Vol] 0.6 10*3/uL 0.0-0.8 [facility] Monocytes/100 WBC Auto (Bld) Ordered By: Bertram Garrison on 01-14-2022 Monocytes/100 WBC (Bld) 5.0 % . F [facility] Neutrophils Auto (Bld) [#/Vo l]Ordered By: Bertram Garrison on 01-14-2022 Neutrophils (Bld) [#/Vol] 3.2 10*3/uL 1.8-7.7 [facility] Neutrophils/100 WBC Auto (Bl d)Ordered By: Bertram Garrison on 01-14-2022 Neutrophils/100 WBC (Bld) 28.2 % . [facility] No Panel InformationOrdered By: Bertram Garrison on 01-14-2022 Platelet Estimate Normal Normal [facility] Platelet Morphology Comment Normal Normal [facility] Platelet mean volume Auto (B ld) [Entitic vol]Ordered By: Bertram Garrison on 01-14-2022 Platelet mean volume (Bld) [Entitic vol] 9.8 fL 6.3-10.7 [facility] Platelets Auto (Bld) [#/Vol] Ordered By: Bertram Garrison on 01-14-2022 Platelets (Bld) [#/Vol] 277 10*3/uL 150-450 [facility] RBC Auto (Bld) [#/Vol]Ordere d By: Bertram Garrison on 01-14-2022 RBC (Bld) [#/Vol] 4.11 10*6/uL 3.60-5.00 [facility] RBC morphologyOrdered By: Emory Garrison on 01-14-2022 RBC morphology finding Nom (Bld) Normal [facility] Albumin [Mass/volume] in Ser um or PlasmaOrdered By: James Redding on 01-13-2022 Albumin [Mass/Vol] 3.1 g/dL 3.2-5.5 [facility] Automated erythrocytes count in urine sediment (number/area)Ordered By: James Redding on 01-13-2022 RBC Auto (Urine sed) [#/Area] 0-1 [HPF] 0-4 [facility] Automated leukocytes count i n urine sediment (number/area)Ordered By: James Redding on 01-13-2022 WBC Auto (Urine sed) [#/Area] 50-100 [HPF] 0-4 [facility] Bilirubin Test strip Ql (U)O rdered By: James Redding on 01-13-2022 Bilirubin Ql (U) 1+ Negative [facility] COVID-19 Positive/NegativeOr dered By: Jaems Redding on 01-13-2022 SARS-CoV-2 (COVID-19) N gene FARRAH+probe Ql (Resp) Negative Negative [facility] Comment on above: Testing for SARS-CoV -2 by RT-PCR This test was developed and its performance characteristics determined by [employer] ([employer] and validated at the [facility]. This test has not been FDA cleared [...] (COVID-19) Ag IA.rapid Ql (Resp) Negative Negative [facility] Comment on above: This is a duplicate Brianna SARS Antigen (DUSTIN) result to be used for statistical tracking purpose only. Color Auto (U)Ordered By: Anni Redding on 01-13-2022 Color (U) Dark yellow Yellow [facility] Globulin Calc (S) [Mass/Vol] Ordered By: James Redding on 01-13-2022 Globulin (S) [Mass/Vol] 3.0 g/dL F [facility] Ketones Auto test strip (U) [Mass/Vol]Ordered By: James Redding on 01-13-2022 Ketones (U) [Mass/Vol] Trace Negative [facility] - UrinalysisOrder ed By: James Redding on 01-13-2022 Hyaline casts LM Ql (Urine sed) 9-19 [LPF] 0-8 [facility] Nitrite Test strip Ql (U)Ord ered By: James Redding on 01-13-2022 Nitrite Ql (U) Negative Negative [facility] No Panel InformationOrdered By: James Redding on 01-13-2022 Smudge Cells Few [facility] SARS Antigen (LFIA) [facility] Protein Auto test strip (U) [Mass/Vol]Ordered By: James Redding on 01-13-2022 Protein (U) [Mass/Vol] 30 mg/dL Negative [facility] Protein [Mass/volume] in Ser um or PlasmaOrdered By: James Redding on 01-13-2022 Protein [Mass/Vol] 6.1 g/dL 6.1-7.9 [facility] Serum or plasma alanine roman otransferase measurement without P-5'-P (enzymatic activiOrdered By: James Redding on 01-13-2022 ALT No additional P-5'-P [Catalytic activity/Vol] 27 U/L 10-60 [facility] Serum or plasma albumin/glob ulin mass ratioOrdered By: James Redding on 01-13-2022 Albumin/Globulin [Mass ratio] 1.0 {ratio} [facility] Serum or plasma alkaline mayelin sphatase measurement (enzymatic activity/volume)Ordered By: James Redding on 01-13-2022 ALP [Catalytic activity/Vol] 95 U/L 32-92 [facility] Serum or plasma aspartate am inotransferase measurement (enzymatic activity/volume)Ordered By: James Redding on 01-13-2022 AST [Catalytic activity/Vol] 27 U/L 10-42 [facility] Serum or plasma total biliru bin measurement (mass/volume)Ordered By: James Redding on 01-13-2022 Bilirubin [Mass/Vol] 0.6 mg/dL 0.3-1.2 [facility] Specific gravity Auto test s trip (U) [Rel density]Ordered By: James Redding on 01-13-2022 Specific gravity (U) [Rel density] 1.029 1.001-1.030 [facility] Squamous epithelial cells de tection in urine sediment by light microscopyOrdered By: James Redding on 01-13-2022 Epithelial cells.squamous LM Ql (Urine sed) 1-2 [HPF] 0-1 [facility] Troponin I.cardiac [Mass/vol ume] in Serum or Plasma by High sensitivity methodOrdered By: James Redding on 01-13-2022 Troponin I.cardiac High sensitivity method [Mass/Vol] 4 pg/mL 0-15 [facility] Urine bacteria detection by automated methodOrdered By: James Redding on 01-13-2022 Bacteria Auto Ql (U) 2+ None Seen [facility] Urine clarity by refractomet ry automatedOrdered By: James Redding on 01-13-2022 Clarity Refractometry automated (U) Cloudy Clear [facility] Urine glucose measurement by automated test strip (mass/volume)Ordered By: James Redding on 01-13-2022 Glucose Auto test strip (U) [Mass/Vol] Normal mg/dL Normal [facility] Urine hemoglobin detection b y automated test stripOrdered By: James Redding on 01-13-2022 Hemoglobin Auto test strip Ql (U) Negative Negative [facility] Urine leukocyte esterase det ection by automated test stripOrdered By: James Redding on 01-13-2022 Leukocyte esterase Auto test strip Ql (U) 3+ Negative [facility] Urobilinogen Auto test strip (U) [Mass/Vol]Ordered By: James Redding on 01-13-2022 Urobilinogen (U) [Mass/Vol] Normal mg/dL Normal [facility] pH Auto test strip (U)Ordere d By: James Redding on 01-13-2022 pH (U) 5.0 [pH] 5.0-9.0 [facility] CARDIAC STRESS/REST INJE CTIONon 01-04-2021 [facility] CARDIAC STRESS/REST INJECTION Patient Name: KATHY WASHBURN STUDY: MYOCARDIAL PERFUSION STRESS TEST WITH LEXISCAN Performing facility: [facility], [address] [place] [address], [address], [place] [address] [facility] Provider: Osmel Fernandes MD, FAC PCP: Dr. Lyndon Vicente Supervising provider: Osmel Fernandes MD, FAC INDICATION: Chest Pain; HTN Hyperlipidemia Diabetes Dyspnea HISTORY: Gender: F; Age: 80 y/o ; Height: 175.26 cm; Weight: 410.6268021 kg. High Cholesterol; Diabetes; HTN; Chest Pain; SOB; Quit smoking Unknown years ago. COMPARISON: Previous nuclear testing completed X at [facility]. ACCESSION NUMBER(S): [id number]; [id number]; [id number] ORDERING CLINICIAN: MONET FERNANDES TECHNIQUE: ONE DAY [...] comparison. Electronically signed by: SARAH HODGES MD Normal [facility] Vital Signs Date Time Vital Sign Value Performing Clinician Elli panchal 05-26-2024 13:54-0500 Body height 172.7 cm Chad Freitas MD Work Phone: [facility] 05-26-2024 13:54-0500 Body mass index (BMI) [Ratio] 35.31 kg/m2 Chad Freitas MD Work Phone: [facility] 05-26-2024 13:54-0500 Body temperature 97 [degF] Chad Freitas MD Work Phone: [facility] 05-26-2024 13:54-0500 Body weight 105.33 kg Chad Freitas MD Work Phone: [facility] 05-26-2024 13:54-0500 Diastolic blood pressure 51 mm[Hg] Chad Freitas MD Work Phone: [facility] 05-26-2024 13:54-0500 Heart rate 70 /min Chad Freitas MD Work Phone: [facility] 05-26-2024 13:54-0500 Respiratory rate 16 /min Chad Freitas MD Work Phone: [facility] 05-26-2024 13:54-0500 SaO2% (BldA) [Mass fraction] 91 % Chad Freitas MD Work Phone: [facility] 05-26-2024 13:54-0500 Systolic blood pressure 92 mm[Hg] Chad Freitas MD Work Phone: [facility] 05-17-2024 13:00-0500 Body height 172.7 cm Zohaib German MD Work Phone: [facility] 05-17-2024 13:00-0500 Body mass index (BMI) [Ratio] 34.67 kg/m2 Zohaib German MD Work Phone: [facility] 05-17-2024 13:00-0500 Body weight 103.4 kg Zohaib German MD Work Phone: [facility] 05-17-2024 13:00-0500 Diastolic blood pressure 75 mm[Hg] Zohaib German MD Work Phone: [facility] 05-17-2024 13:00-0500 Heart rate 62 /min Zohaib German MD Work Phone: [facility] 05-17-2024 13:00-0500 Systolic blood pressure 117 mm[Hg] Zohaib German MD Work Phone: [facility] 05-12-2024 13:50-0400 Body height 180.34 cm DO Ayanna Vicente Work Phone: [facility] 05-12-2024 13:50-0400 Body mass index (BMI) [Ratio] 32.2 kg/m2 DO Ayanna Vicente Work Phone: [facility] 05-12-2024 13:50-0400 Body weight 104.77 kg DO Ayanna Vicente Work Phone: [facility] 05-12-2024 13:50-0400 Diastolic blood pressure 57 mm[Hg] DO Ayanna Vicente Work Phone: [facility] 05-12-2024 13:50-0400 Heart rate 86 /min DO Ayanna Vicente Work Phone: [facility] 05-12-2024 13:50-0400 SaO2% (BldA) [Mass fraction] 93 % DO Ayanna Vicente Work Phone: [facility] 05-12-2024 13:50-0400 Systolic blood pressure 128 mm[Hg] DO Ayanna Vicente Work Phone: [facility] 05-11-2024 14:45-0400 Body mass index (BMI) [Ratio] 31.9 kg/m2 DO Ayanna Vicente Work Phone: [facility] 05-11-2024 14:45-0400 Body temperature 97.3 [degF] DO Ayanna Vicente Work Phone: [facility] 05-11-2024 14:45-0400 Diastolic blood pressure 70 mm[Hg] DO Ayanna Vicente Work Phone: [facility] 05-11-2024 14:45-0400 Heart rate 76 /min DO Ayanna Vicente Work Phone: [facility] 05-11-2024 14:45-0400 SaO2% (BldA) [Mass fraction] 91 % DO Ayanna Vicente Work Phone: [facility] 05-11-2024 14:45-0400 Systolic blood pressure 116 mm[Hg] DO Ayanna Vicente Work Phone: [facility] 05-11-2024 13:41-0400 Body height 180.34 cm DO Ayanna Vicente Work Phone: [facility] 05-11-2024 13:41-0400 Body weight 103.87 kg DO Ayanna Vicente Work Phone: [facility] 04-05-2024 08:52-0400 Body height 180.34 cm [facility] 04-05-2024 08:52-0400 Body mass index (BMI) [Ratio] 32.3 kg/m2 [facility] 04-05-2024 08:52-0400 Body temperature 97 [degF] [facility] 04-05-2024 08:52-0400 Body weight 105.23 kg [facility] 04-05-2024 08:52-0400 Diastolic blood pressure 62 mm[Hg] [facility] 04-05-2024 08:52-0400 Heart rate 87 /min [facility] 04-05-2024 08:52-0400 SaO2% (BldA) [Mass fraction] 90 % [facility] 04-05-2024 08:52-0400 Systolic blood pressure 98 mm[Hg] [facility] 03-08-2024 14:43-0400 Body height 180.34 cm [facility] 03-08-2024 14:43-0400 Body mass index (BMI) [Ratio] 32.1 kg/m2 [facility] 03-08-2024 14:43-0400 Body temperature 97 [degF] [facility] 03-08-2024 14:43-0400 Body weight 104.32 kg [facility] 03-08-2024 14:43-0400 Diastolic blood pressure 64 mm[Hg] [facility] 03-08-2024 14:43-0400 Heart rate 73 /min [facility] 03-08-2024 14:43-0400 SaO2% (BldA) [Mass fraction] 95 % [facility] 03-08-2024 14:43-0400 Systolic blood pressure 98 mm[Hg] [facility] 02-24-2024 10:15-0400 Body temperature 97.88 [degF] [facility] 02-24-2024 10:15-0400 Diastolic blood pressure 42 mm[Hg] [facility] 02-24-2024 10:15-0400 Heart rate 68 /min [facility] 02-24-2024 10:15-0400 Respiratory rate 16 /min [facility] 02-24-2024 10:15-0400 Systolic blood pressure 106 mm[Hg] [facility] 02-05-2024 08:08-0400 Body height 180.34 cm [facility] 02-05-2024 08:08-0400 Body mass index (BMI) [Ratio] 32.3 kg/m2 [facility] 02-05-2024 08:08-0400 Body temperature 97.8 [degF] [facility] 02-05-2024 08:08-0400 Body weight 105.23 kg [facility] 02-05-2024 08:08-0400 Diastolic blood pressure 74 mm[Hg] [facility] 02-05-2024 08:08-0400 Heart rate 70 /min [facility] 02-05-2024 08:08-0400 Respiratory rate 18 /min [facility] 02-05-2024 08:08-0400 SaO2% (BldA) [Mass fraction] 98 % [facility] 02-05-2024 08:08-0400 Systolic blood pressure 122 mm[Hg] [facility] 01-12-2024 14:32-0400 Body height 180.34 cm DO Ayanna Ogabbi Work Phone: [facility] 01-12-2024 14:32-0400 Body mass index (BMI) [Ratio] 30.9 kg/m2 DO Ayanan Ogabbi Work Phone: [facility] 01-12-2024 14:32-0400 Body temperature 98 [degF] DO Ayanna Ogabbi Work Phone: [facility] 01-12-2024 14:32-0400 Body weight 100.69 kg DO Ayanna Ogabbi Work Phone: [facility] 01-12-2024 14:32-0400 Heart rate 61 /min DO Ayanna Vicente Work Phone: [facility] 01-12-2024 14:32-0400 Respiratory rate 18 /min DO Ayanna Ogabbi Work Phone: [facility] 01-12-2024 14:32-0400 SaO2% (BldA) [Mass fraction] 91 % DO Ayanna Vicente Work Phone: [facility] 10-21-2023 14:45-0400 Body height 180.34 cm DO Ayanna Vicente Work Phone: [facility] 10-21-2023 14:45-0400 Body mass index (BMI) [Ratio] 32.5 kg/m2 DO Ayanna Vicente Work Phone: [facility] 10-21-2023 14:45-0400 Body temperature 97.5 [degF] DO Ayanna Vicente Work Phone: [facility] 10-21-2023 14:45-0400 Body weight 105.68 kg DO Ayanna Vicente Work Phone: [facility] 10-21-2023 14:45-0400 Diastolic blood pressure 76 mm[Hg] DO Ayanna Vicente Work Phone: [facility] 10-21-2023 14:45-0400 Respiratory rate 18 /min DO Ayanna Vicente Work Phone: [facility] 10-21-2023 14:45-0400 SaO2% (BldA) [Mass fraction] 92 % DO Ayanna Vicente Work Phone: [facility] 10-21-2023 14:45-0400 Systolic blood pressure 118 mm[Hg] DO Ayanna Vicente Work Phone: [facility] 08-12-2023 14:20-0500 Body height 180.34 cm Homa Mckeon Other [facility] 08-12-2023 14:20-0500 Body mass index (BMI) [Ratio] 32.21 kg/m2 Homa Mckeon Other [employer] Other 08-12-2023 14:20-0500 Body weight 104.78 kg Homa Mckeon Other [employer] Other 08-12-2023 14:20-0500 Body weight 104.77 kg DO Ayanna Vicente Work Phone: [facility] 04-15-2023 14:40-0400 Body height 180.34 cm Ayanna Vicente Other [employer] Other 04-15-2023 14:40-0400 Body mass index (BMI) [Ratio] 33.61 kg/m2 Ayanna Vicente Other [employer] Other 04-15-2023 14:40-0400 Body temperature 98.8 [degF] Ayanna Vicente Other [employer] Other 04-15-2023 14:40-0400 Body weight 109.32 kg Ayanna Vicente Other [employer] Other 04-15-2023 14:40-0400 Diastolic blood pressure 82 mm[Hg] Ayanna Vicente Other [employer] Other 04-15-2023 14:40-0400 Respiratory rate 18 /min Ayanna Vicente Other [employer] Other 04-15-2023 14:40-0400 SaO2% (BldA) [Mass fraction] 93 % Ayanna Vicente Other [employer] Other 04-15-2023 14:40-0400 Systolic blood pressure 128 mm[Hg] Ayanna Vicente Other [employer] Other 02-25-2023 14:40-0400 Body height 180.34 cm Ayanna Vicente Other [employer] Other 02-25-2023 14:40-0400 Body mass index (BMI) [Ratio] 32.91 kg/m2 Ayanna Vicente Other [employer] Other 02-25-2023 14:40-0400 Body temperature 97.9 [degF] Ayanna Vicente Other [employer] Other 02-25-2023 14:40-0400 Body weight 107.05 kg Ayanna Vicente Other [employer] Other 02-25-2023 14:40-0400 Diastolic blood pressure 84 mm[Hg] Ayanna Vicente Other [employer] Other 02-25-2023 14:40-0400 Respiratory rate 18 /min Ayanna Vicente Other [employer] Other 02-25-2023 14:40-0400 SaO2% (BldA) [Mass fraction] 94 % Ayanna Vicente Other [employer] Other 02-25-2023 14:40-0400 Systolic blood pressure 122 mm[Hg] Ayanna Vicente Other [employer] Other 02-11-2023 11:35-0400 Blood Pressure Location SUSANCHARLI RANDOLPH [facility] 02-11-2023 11:35-0400 Diastolic blood pressure 67 mm[Hg] SUSAN JAX [facility] 02-11-2023 11:35-0400 Heart rate 70 /min SUSAN JAX [facility] 02-11-2023 11:35-0400 Systolic blood pressure 100 mm[Hg] SUSAN JAX [facility] 02-07-2023 13:28-0400 Body height 177.8 cm Francine Lares MD Work Phone: [facility] 02-07-2023 13:28-0400 Body temperature 97.3 [degF] Francine Lares MD Work Phone: [facility] 02-07-2023 13:28-0400 Body weight 107.96 kg Francine Lares MD Work Phone: [facility] 02-07-2023 13:28-0400 Diastolic blood pressure 72 mm[Hg] Francine Lares MD Work Phone: [facility] 02-07-2023 13:28-0400 Heart rate 74 /min Francine Lares MD Work Phone: [facility] 02-07-2023 13:28-0400 Respiratory rate 20 /min Francine Lares MD Work Phone: [facility] 02-07-2023 13:28-0400 SaO2% (BldA) [Mass fraction] 93 % Francine Lares MD Work Phone: [facility] 02-07-2023 13:28-0400 Systolic blood pressure 122 mm[Hg] Francine Lares MD Work Phone: [facility] 07-19-2022 12:17-0500 Body height 177.8 cm Francine Lares MD Work Phone: [facility] 07-19-2022 12:17-0500 Body temperature 98.01 [degF] Francine Lares MD Work Phone: [facility] 07-19-2022 12:17-0500 Body weight 105.6 kg Francine Lares MD Work Phone: [facility] 07-19-2022 12:17-0500 Diastolic blood pressure 71 mm[Hg] Francine Lares MD Work Phone: [facility] 07-19-2022 12:17-0500 Heart rate 72 /min Francine Lares MD Work Phone: [facility] 07-19-2022 12:17-0500 Respiratory rate 16 /min Francine Lares MD Work Phone: [facility] 07-19-2022 12:17-0500 SaO2% (BldA) [Mass fraction] 93 % Francine Lares MD Work Phone: [facility] 07-19-2022 12:17-0500 Systolic blood pressure 111 mm[Hg] Francine Lares MD Work Phone: [facility] 04-18-2022 11:58-0400 Body height 177.8 cm Francine Lares MD Work Phone: [facility] 04-18-2022 11:58-0400 Body temperature 97.81 [degF] Francine Lares MD Work Phone: [facility] 04-18-2022 11:58-0400 Body weight 102.69 kg Francine Lares MD Work Phone: [facility] 04-18-2022 11:58-0400 Diastolic blood pressure 68 mm[Hg] Francine Lares MD Work Phone: [facility] 04-18-2022 11:58-0400 Heart rate 70 /min Francine Lares MD Work Phone: [facility] 04-18-2022 11:58-0400 Respiratory rate 16 /min Francine Lares MD Work Phone: [facility] 04-18-2022 11:58-0400 SaO2% (BldA) [Mass fraction] 99 % Francine Lares MD Work Phone: [facility] 04-18-2022 11:58-0400 Systolic blood pressure 127 mm[Hg] Francine Lares MD Work Phone: [facility] 04-04-2022 10:59-0400 Body height 177.8 cm Francine Lares MD Work Phone: [facility] 04-04-2022 10:59-0400 Body temperature 97.11 [degF] Francine Lares MD Work Phone: [facility] 04-04-2022 10:59-0400 Body weight 103.78 kg Francine Lares MD Work Phone: [facility] 04-04-2022 10:59-0400 Diastolic blood pressure 73 mm[Hg] Francine Lares MD Work Phone: [facility] 04-04-2022 10:59-0400 Heart rate 68 /min Francine Lares MD Work Phone: [facility] 04-04-2022 10:59-0400 Respiratory rate 16 /min Francine Lares MD Work Phone: [facility] 04-04-2022 10:59-0400 SaO2% (BldA) [Mass fraction] 95 % Francine Lares MD Work Phone: [facility] 04-04-2022 10:59-0400 Systolic blood pressure 138 mm[Hg] Francine Lares MD Work Phone: [facility] 04-02-2022 14:20-0400 Body height 180.34 cm Ayanna Vicente Other [employer] Other 04-02-2022 14:20-0400 Body mass index (BMI) [Ratio] 31.73 kg/m2 Ayanna Vicente Other [employer] Other 04-02-2022 14:20-0400 Body temperature 97.2 [degF] Ayanna Vicente Other [employer] Other 04-02-2022 14:20-0400 Body weight 103.19 kg Ayanna Vicente Other [employer] Other 04-02-2022 14:20-0400 Diastolic blood pressure 76 mm[Hg] Ayanna Vicente Other [employer] Other 04-02-2022 14:20-0400 Respiratory rate 18 /min Ayanna Vicente Other [employer] Other 04-02-2022 14:20-0400 SaO2% (BldA) [Mass fraction] 96 % Ayanna Vicente Other [employer] Other 04-02-2022 14:20-0400 Systolic blood pressure 120 mm[Hg] Ayanna Vicente Other [employer] Other 02-06-2022 14:20-0400 Body height 180.34 cm Ayanna Vicente Other [employer] Other 02-06-2022 14:20-0400 Body mass index (BMI) [Ratio] 31.94 kg/m2 Ayanna Vicente Other [employer] Other 02-06-2022 14:20-0400 Body temperature 97.4 [degF] Ayanna Vicente Other [employer] Other 02-06-2022 14:20-0400 Body weight 103.87 kg Ayanna Vicente Other [employer] Other 02-06-2022 14:20-0400 Diastolic blood pressure 68 mm[Hg] Ayanna Vicente Other [employer] Other 02-06-2022 14:20-0400 Respiratory rate 18 /min Ayanna Vicente Other [employer] Other 02-06-2022 14:20-0400 SaO2% (BldA) [Mass fraction] 93 % Ayanna Vicente Other [employer] Other 02-06-2022 14:20-0400 Systolic blood pressure 114 mm[Hg] Ayanna Vicente Other [facility] Other 01-26-2022 05:00-0400 Body temperature 97.6 [degF] DO Ayanna Vicente Work Phone: [facility] 01-26-2022 05:00-0400 Diastolic blood pressure 77 mm[Hg] DO Ayanna Vicente Work Phone: [facility] 01-26-2022 05:00-0400 Heart rate 64 /min DO Ayanna Vicente Work Phone: [facility] 01-26-2022 05:00-0400 Respiratory rate 16 /min DO Ayanna Vicente Work Phone: [facility] 01-26-2022 05:00-0400 SaO2% (BldA) [Mass fraction] 94 % DO Ayanna Vicente Work Phone: [facility] 01-26-2022 05:00-0400 Systolic blood pressure 116 mm[Hg] DO Ayanna Vicente Work Phone: [facility] 01-23-2022 06:55-0400 Body height 177.8 cm DO Ayanna Vicente Work Phone: [facility] 01-20-2022 06:00-0400 Body weight 109.6 kg DO Ayanna Vicente Work Phone: [facility] 01-15-2022 17:00-0400 Body mass index (BMI) [Ratio] 33 kg/m2 DO Ayanna Vicente Work Phone: [facility] 01-15-2022 15:40-0400 Body temperature 97.9 [degF] DO Ayanna Vicente Work Phone: [facility] 01-15-2022 15:40-0400 Diastolic blood pressure 88 mm[Hg] DO Ayanna Vicente Work Phone: [facility] 01-15-2022 15:40-0400 Heart rate 72 /min DO Ayanna Vicente Work Phone: [facility] 01-15-2022 15:40-0400 Respiratory rate 18 /min DO Ayanna Vciente Work Phone: [facility] 01-15-2022 15:40-0400 SaO2% (BldA) [Mass fraction] 95 % DO Ayanna Vicente Work Phone: [facility] 01-15-2022 15:40-0400 Systolic blood pressure 128 mm[Hg] DO Ayanna Vicente Work Phone: [facility] 01-15-2022 05:11-0400 Body weight 107.9 kg DO Ayanna Vicente Work Phone: [facility] 01-13-2022 19:52-0400 Body height 177.8 cm DO Ayanna Vicente Work Phone: [facility] 01-13-2022 19:52-0400 Body mass index (BMI) [Ratio] 34.9 kg/m2 DO Ayanna Vicente Work Phone: [facility] 12-27-2021 11:10-0400 Body height 180.34 cm Ayanna Vicente Other [facility] Other 12-27-2021 11:10-0400 Body mass index (BMI) [Ratio] 33.12 kg/m2 Ayanna Vicente Other [employer] Other 12-27-2021 11:10-0400 Body temperature 97.3 [degF] Ayanna Vicente Other [employer] Other 12-27-2021 11:10-0400 Body weight 107.73 kg Ayanna Vicente Other [employer] Other 12-27-2021 11:10-0400 Diastolic blood pressure 82 mm[Hg] Ayanna Vicente Other [employer] Other 12-27-2021 11:10-0400 Respiratory rate 20 /min Ayanna Vicente Other [employer] Other 12-27-2021 11:10-0400 SaO2% (BldA) [Mass fraction] 93 % Ayanna Vicente Other [employer] Other 12-27-2021 11:10-0400 Systolic blood pressure 124 mm[Hg] Ayanna Sakina Other [employer] Other 12-17-2021 12:00-0400 Body height 180.34 cm Ayanna Alf Other [employer] Other 12-17-2021 12:00-0400 Body mass index (BMI) [Ratio] 32.21 kg/m2 Ayanna Milner Other [employer] Other 12-17-2021 12:00-0400 Body weight 104.78 kg Ayanna Milenr Other [employer] Other 12-17-2021 12:00-0400 Diastolic blood pressure 56 mm[Hg] Ayanna Alf Other [employer] Other 12-17-2021 12:00-0400 Systolic blood pressure 98 mm[Hg] Ayanna Milner Other [employer] Other 04-04-2021 14:20-0400 Body height 180.34 cm Ayanna Earleabbi Other [employer] Other 04-04-2021 14:20-0400 Body mass index (BMI) [Ratio] 32.35 kg/m2 Ayanna Vicente Other [employer] Other 04-04-2021 14:20-0400 Body temperature 97.7 [degF] Ayanna Vicente Other [employer] Other 04-04-2021 14:20-0400 Body weight 105.24 kg Ayanna Vicente Other [employer] Other 04-04-2021 14:20-0400 Diastolic blood pressure 70 mm[Hg] Ayanna Vicente Other [employer] Other 04-04-2021 14:20-0400 Respiratory rate 18 /min Ayanna Vicente Other [employer] Other 04-04-2021 14:20-0400 SaO2% (BldA) [Mass fraction] 97 % Ayanna Vicente Other [employer] Other 04-04-2021 14:20-0400 Systolic blood pressure 114 mm[Hg] Ayanna Vicente Other [employer] Other Encounters Encounter Date Encounter Type Care Provider Facility Start: 06-08-2024 End: 06-08-2024 Chart abstracting Zohaib German MD Work Phone: Rheumatology Start: 06-07-2024 End: 06-07-2024 ambulatory Som Azul MD Facility: [facility] Start: 05-26-2024 End: 05-26-2024 ambulatory AYANNA VICENTE Facility:[facility] Start: 05-26-2024 Non-patient / Non-visit Ayanna Vicente DO Work Phone: [facility] Work Phone: Start: 05-26-2024 End: 05-26-2024 Office outpatient visit 15 minutes Chad Freitas MD Work Phone: Hematology/Oncology Comment on above: CLL (chronic lymphoc ytic leukemia) (HCC) (Primary Dx) Start: 05-26-2024 End: 05-26-2024 Patient encounter procedure Ayanna Sakina DO Work Phone: [facility] Work Phone: Start: 05-26-2024 End: 05-26-2024 ambulatory Ayanna Vicente Facility:[facility] Start: 05-18-2024 End: 05-18-2024 Patient encounter procedure DO Ayanna Ogabbi Work Phone: [facility] Work Phone: Start: 05-18-2024 End: 05-18-2024 ambulatory DO Ayanna Ogabbi Work Phone: [facility] Work Phone: Start: 05-17-2024 End: 05-17-2024 ambulatory AYANNA VICENTE Facility:[facility] Start: 05-17-2024 End: 05-17-2024 Patient encounter procedure Zohaib German MD Work Phone: Rheumatology Comment on above: 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); Fibromyalgia; Type 2 diabetes mellitus without complication, with long-term current use of insulin (HCC) Start: 05-12-2024 End: 05-12-2024 ambulatory DO Ayanna Earleabbi Work Phone: [facility] Work Phone: Start: 05-12-2024 End: 05-12-2024 Patient encounter procedure DO Ayanna Vicente Work Phone: [facility] Work Phone: Start: 05-11-2024 End: 05-11-2024 ambulatory DO Ayanna Vicente Work Phone: [facility] Work Phone: Start: 05-11-2024 End: 05-11-2024 Patient encounter procedure DO [facility]ente [facility] [place] Work Phone: Start: 05-06-2024 End: 05-06-2024 Patient encounter procedure DO Ayanna Vicente Work Phone: [facility] [place] Work Phone: Start: 05-06-2024 End: 05-06-2024 ambulatory DO Ayanna Vicente Work Phone: [facility] Work Phone: Start: 04-05-2024 End: 04-05-2024 ambulatory [facility] Work Phone: Start: 04-05-2024 End: 04-05-2024 Patient encounter procedure [facility] [place] Work Phone: Start: 03-08-2024 End: 03-08-2024 ambulatory [facility] Work Phone: Start: 03-08-2024 End: 03-08-2024 Patient encounter procedure [facility] [place] Work Phone: Start: 02-24-2024 End: 02-24-2024 ambulatory PA-C SUSAN RANDOLPH Facility:[facility] Start: 02-24-2024 End: 02-24-2024 Patient encounter procedure SUSAN RANDOLPH [facility] Start: 02-05-2024 End: 02-05-2024 ambulatory [facility] Work Phone: Start: 02-05-2024 End: 02-05-2024 Patient encounter procedure [facility] [place] Work Phone: Start: 02-04-2024 Non-patient / [facility] Work [facility] Start: 02-03-2024 End: 02-03-2024 ambulatory JAMES SMITH Not Available Start: 01-12-2024 End: 01-12-2024 ambulatory DO Ayanna Vicente Work Phone: [facility] Work Phone: Start: 01-12-2024 End: 01-12-2024 Patient encounter procedure DO Ayanna Vicente Work Phone: [facility] Work Phone: Start: 11-17-2023 End: 11-17-2023 ambulatory JAMES SMITH Not Available Start: 10-21-2023 End: 10-21-2023 ambulatory DO Ayanna Vicente Work Phone: [facility] Work Phone: Start: 10-21-2023 End: 10-21-2023 Patient encounter procedure DO Ayanna Vicente Work Phone: [facility] [place] Work Phone: Start: 10-20-2023 Non-patient / Non-visit DO Aftab id Sakina Work Phone: [facility] Work Phone: Start: 10-17-2023 End: 10-17-2023 Patient encounter procedure DO Ayanna Ogabbi Work Phone: [facility] [place] Work Phone: Start: 10-17-2023 End: 10-17-2023 ambulatory DO Ayanna Vicente Work Phone: [facility] Work Phone: Start: 10-16-2023 Non-patient / Non-visit DO Aftab id Girvin Work Phone: [facility] Work Phone: Start: 10-13-2023 Non-patient / Non-visit DO Aftab id Girvin Work Phone: [facility] Work Phone: Start: 09-01-2023 End: 09-01-2023 ambulatory Som Azul MD Facility:[facility] Start: 08-28-2023 Bamboo flowsheet James reis DPM Work Phone: [facility] Start: 08-28-2023 Bamboo flowsheet James reis DPM Work Phone: [facility] Start: 08-28-2023 End: 08-28-2023 ambulatory JAMES SMITH Not Available Start: 08-28-2023 End: 08-28-2023 Patient encounter procedure James Smith DPM Work Phone: [facility] Comment on above: Onychomycosis (Prima ry Dx); 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); Pain in both feet Start: 08-25-2023 End: 08-25-2023 ambulatory Som Azul MD Facility:[facility] Start: 08-18-2023 End: 08-18-2023 ambulatory Homa Mckeon Other [employer] Other Start: 08-18-2023 Telephone encounter Homa Mckeon [employer] Start: 08-12-2023 End: 08-12-2023 ambulatory Homa Mckeon Other [employer] Other Start: 08-12-2023 Office outpatient ne w 45 minutes Homa Mckeon [facility] Start: 08-12-2023 End: 08-12-2023 Patient encounter procedure DO Ayanna Vicente Work Phone: [facility] Start: 08-08-2023 End: 08-08-2023 ambulatory AYANNA VICENTE Facility:[facility] Start: 07-16-2023 End: 07-16-2023 ambulatory Ayanna Vicente Other [employer] Other Start: 07-16-2023 Telephone encounter Ayanna Vicente [facility] [place] Start: 05-12-2023 End: 05-12-2023 ambulatory Junior Butterfield Other [employer] Other Start: 05-12-2023 Telephone encounter Junior Butterfield [employer] Start: 05-07-2023 End: 05-07-2023 ambulatory Ayanna Vicente Other [employer] Other Start: 05-07-2023 Telephone encounter Ayanna Vicente [facility] [place] Start: 04-29-2023 End: 04-29-2023 ambulatory Ayanna Vicente [facility] [employer] Other Start: 04-29-2023 Telephone encounter Ayanna Vicente [facility] [place] Start: 04-25-2023 End: 04-25-2023 ambulatory Ayanna Vicente [facility] [employer] Other Start: 04-25-2023 Telephone encounter Ayanna Vicente [facility] [place] Start: 04-24-2023 End: 04-24-2023 ambulatory DO Ayanna Vicente Work Phone: [facility] Work Phone: Start: 04-24-2023 End: 04-24-2023 Patient encounter procedure DO Ayanna Ogabbi Work Phone: [facility] Work Phone: Start: 04-22-2023 End: 04-22-2023 ambulatory Ayanna Vicente [employer] Other Start: 04-22-2023 Telephone encounter Ayanna Vicente [facility] [place] Start: 04-15-2023 End: 04-15-2023 ambulatory Ayanna Vicente [employer] Other Start: 04-15-2023 Office outpatient vi sit 25 minutes Ayanna Vicente [facility] [place] Start: 04-14-2023 End: 04-14-2023 ambulatory Ayanna Vicente [facility] [employer] Other Start: 04-14-2023 Telephone encounter Ayanna Vicente [facility] [place] Start: 04-09-2023 End: 04-09-2023 ambulatory DO Ayanna Vicente Work Phone: [facility] Work Phone: Start: 04-09-2023 End: 04-09-2023 Patient encounter procedure DO Ayanna Vicente Work Phone: [facility] [place] Work Phone: Start: 02-25-2023 End: 02-25-2023 ambulatory Ayanna Vicente [employer] Other Start: 02-25-2023 Office outpatient [facility] Start: 02-11-2023 End: 02-11-2023 Patient encounter procedure SUSAN RANDOLPH [facility] Start: 02-07-2023 End: 02-07-2023 ambulatory Francine Lares MD Work Phone: Hematology/Oncology Comment on above: CLL (chronic lymphoc ytic leukemia) (HCC) (Primary Dx) Start: 02-07-2023 End: 02-07-2023 Patient encounter procedure Francine Lares MD Work Phone: [facility] Start: 01-16-2023 End: 01-16-2023 ambulatory Ayanna Vicente [facility] [employer] Other Start: 01-16-2023 [facility] Start: 01-15-2023 End: 01-15-2023 ambulatory Ayanna Vicente [facility] [employer] Other Start: 01-15-2023 [facility] Start: 01-07-2023 End: 01-07-2023 ambulatory Ayanna Vicente Other [employer] Other Start: 01-07-2023 Telephone encounter Ayanna Vicente [facility] [place] Start: 01-06-2023 End: 01-06-2023 ambulatory Ayanna Vicente Other [employer] Other Start: 01-06-2023 Telephone encounter Ayanna Vicente [facility] [place] Start: 11-29-[address] AYANNA VICENTE Facilit y:[facility] Start: 10-16-2022 End: 10-16-2022 ambulatory Ayanna Vicente Other [employer] Other Start: 10-16-2022 Telephone encounter Ayanna Vicente [facility] Start: 10-02-2022 End: 10-02-2022 ambulatory Ayanna Vicente Other [employer] Other Start: 10-02-2022 Telephone encounter Ayanna Vicente [facility] Start: 09-30-2022 End: 09-30-2022 ambulatory DO Ayanna Vicente Work Phone: [facility] Work Phone: Start: 09-30-2022 End: 09-30-2022 Patient encounter procedure DO Ayanna Vicente Work Phone: [facility] [place] Work Phone: Start: 09-24-2022 End: 09-24-2022 ambulatory DO Ayanna Vicente Work Phone: [facility] Work Phone: Start: 09-24-2022 End: 09-24-2022 Patient encounter procedure DO Ayanna Vicente Work Phone: [facility] [address] Work Phone: Start: 09-02-2022 End: 09-02-2022 ambulatory Ayanna Vicente [facility] [employer] Other Start: 09-02-2022 Telephone encounter Ayanna Vicente [facility] Start: 08-29-2022 End: 08-29-2022 ambulatory DO Ayanna Vicente Work Phone: [facility] Work Phone: Start: 08-29-2022 End: 08-29-2022 Patient encounter procedure DO Ayanna Vicente Work Phone: [facility] Work Phone: Start: 08-29-2022 End: 08-29-2022 Patient encounter procedure DO Ayanna Vicente Work Phone: [facility] [address] Work Phone: Start: 08-12-2022 End: 08-12-2022 ambulatory DO Ayanna Vicente Work Phone: [facility] Work Phone: Start: 08-12-2022 End: 08-12-2022 Patient encounter procedure DO Ayanna Vicente Work Phone: [facility] [place] Work Phone: Start: 08-05-2022 End: 08-05-2022 ambulatory Ayanna Vicente Other [employer] Other Start: 08-05-2022 Telephone encounter Ayanna Vicente [facility] Start: 08-02-2022 ambulatory Ayanna Vicente Faci lity:[id number] Start: 07-24-2022 End: 07-24-2022 ambulatory DO Ayanna Vicente Work Phone: [facility] Work Phone: Start: 07-24-2022 End: 07-24-2022 Patient encounter procedure DO Ayanna Vicente Work Phone: [facility] Work Phone: Start: 07-19-2022 Telephone encounter Francine justice MD Work Phone: [facility] Comment on above: Referral Information (ENT) Start: [...] Francine Lares MD Work Phone: [place] Start: 05-31-2022 End: 05-31-2022 ambulatory Ayanna Vicente Other [employer] Other Start: 05-31-2022 Telephone encounter Ayanna Vicente [facility] Start: 05-14-2022 End: 05-14-2022 ambulatory Ayanna Vicente [employer] Other Start: 05-14-2022 Telephone encounter Ayanna Vicente [facility] [place] Start: 04-24-2022 End: 04-24-2022 ambulatory Ayanna Vicente [employer] Other Start: 04-24-2022 Telephone encounter Ayanna Vicente [facility] [place] Start: 04-23-2022 Telephone encounter Ayanna Vicente [facility] [place] Start: 04-23-2022 End: 04-23-2022 ambulatory DO Ayanna Vicente Work Phone: [employer] Other Start: 04-23-2022 End: 04-23-2022 Patient encounter procedure DO Ayanna Vicente Work Phone: [facility] [place] Start: 04-18-2022 End: 04-18-2022 ambulatory Francine Lares MD Work Phone: Hematology/Oncology Comment on above: CLL (chronic lymphoc ytic leukemia) (HCC) (Primary Dx) Start: 04-18-2022 End: 04-18-2022 Patient encounter procedure Francine Lares MD Work Phone: [employer] Start: 04-10-2022 End: 04-10-2022 ambulatory Ayanna Vicente Other [employer] Other Start: 04-10-2022 Telephone encounter Ayanna Vicente [facility] [place] Start: 04-05-2022 Telephone encounter Niurka Hood Hematology/Oncology Comment on above: Care Coordination (R esults) Start: 04-04-2022 End: 04-04-2022 ambulatory Francine Lares MD Work Phone: Hematology/Oncology Comment on above: Lymphocytosis (Prima ry Dx) Start: 04-04-2022 End: 04-04-2022 Patient encounter procedure Francine Lares MD Work Phone: [employer] Start: 04-02-2022 End: 04-02-2022 ambulatory Ayanna Vicente [employer] Other Start: 04-02-2022 Office outpatient vi sit 40 minutes Ayanna Vicente [facility] [place] Start: 04-01-2022 End: 04-01-2022 Patient encounter procedure DO Ayanna Vicente Work Phone: [facility] [place] Start: 03-26-2022 End: 03-26-2022 ambulatory Ayanna Vicente Other [employer] Other Start: 03-26-2022 Telephone encounter Ayanna Vicente [facility] Start: 03-19-2022 End: 03-19-2022 ambulatory Ayanna Vicente Other [employer] Other Start: 03-19-2022 Telephone encounter Ayanna Vicente [facility] [place] Start: 03-13-2022 End: 03-13-2022 ambulatory Ayanna Vicente Other [employer] Other Start: 03-13-2022 Telephone encounter Ayanna Vicente [facility] [place] Start: 03-08-2022 End: 03-08-2022 ambulatory Ayanna Vicente Other [employer] Other Start: 03-08-2022 Telephone encounter Ayanna Vicente [facility] Start: 03-07-2022 End: 03-07-2022 ambulatory Ayanna Vicente Other [employer] Other Start: 03-07-2022 Telephone encounter Ayanna Vicente [facility] Start: 02-28-2022 End: 02-28-2022 ambulatory Ayanna Vicente Other [employer] Other Start: 02-28-2022 Telephone encounter Ayanna Vicente [facility] Start: 02-21-2022 End: 02-21-2022 ambulatory Ayanna Vicente Other [employer] Other Start: 02-21-2022 Telephone encounter Ayanna Vicente [facility] Start: 02-18-2022 End: 02-18-2022 ambulatory Ayanna Vicente Other [employer] Other Start: 02-18-2022 Telephone encounter Ayanna Vicente [facility] Start: 02-15-2022 End: 02-15-2022 ambulatory Ayanna Vicente Other [employer] Other Start: 02-15-2022 Telephone encounter Ayanna Earleabbi [facility] Start: 02-11-2022 End: 02-11-2022 ambulatory Ayanna Vicente Other [employer] Other Start: 02-11-2022 Telephone encounter Ayanna Vicente [facility] [place] Start: 02-06-2022 End: 02-06-2022 ambulatory Ayanna Vicente Other [employer] Other Start: 02-06-2022 Office outpatient vi sit 25 minutes Ayanna Vicente [facility] [place] Start: 01-31-2022 End: 01-31-2022 ambulatory Ayanna Sakina Other [employer] Other Start: 01-31-2022 Telephone encounter Ayanna Ogabbi [facility] [place] Start: 01-15-2022 End: 01-26-2022 Evaluation and management of inpatient DO Ayanna Vicente Work Phone: [facility] Start: 01-13-2022 End: 01-15-2022 Evaluation and management of inpatient DO Ayanna Vicente Work Phone: [facility] [place] Start: 01-07-2022 End: 01-07-2022 ambulatory Ayanna Vicente Other [employer] Other Start: 01-07-2022 Telephone encounter Ayanna Ogbabi [facility] [place] Start: 12-27-2021 End: 12-27-2021 ambulatory Ayanna Vicente Other [employer] Other Start: 12-27-2021 Office outpatient vi sit 15 minutes Ayanna Vicente [facility] [place] Start: 12-19-2021 End: 12-19-2021 ambulatory Ayanna Vicente Other [employer] Other Start: 12-19-2021 Telephone encounter Ayanna Vicente [facility] [place] Start: 12-18-2021 End: 12-18-2021 ambulatory Ayanna Milner Other [employer] Other Start: 12-18-2021 Telephone encounter Ayanna Milner [facility] Start: 12-17-2021 End: 12-17-2021 ambulatory Ayanna Milner Other [employer] Other Start: 12-17-2021 Office outpatient ne w 45 minutes Ayanna Milner [facility] Start: 11-12-2021 End: 11-12-2021 ambulatory Ayanna Vicente Other [employer] Other Start: 11-12-2021 Telephone encounter Ayanna Vicente [facility] [place] Start: 10-02-2021 End: 10-02-2021 ambulatory Ayanna Vicente Other [employer] Other Start: 10-02-2021 Telephone encounter Ayanna Vicente [facility] [place] Start: 10-01-2021 End: 10-01-2021 ambulatory Ayanna Vicente Other [employer] Other Start: 10-01-2021 Telephone encounter Ayanna Vicente [facility] [place] Start: 09-17-2021 End: 09-17-2021 ambulatory Ayanna Vicente Other [employer] Other Start: 09-17-2021 Telephone encounter Ayanna Vicente [facility] Start: 09-13-2021 End: 09-13-2021 ambulatory Ayanna Vicente Other [employer] Other Start: 09-13-2021 Telephone encounter Ayanna Vicente [facility] [place] Start: 09-12-2021 End: 09-12-2021 ambulatory Ayanna Vicente Other [employer] Other Start: 09-12-2021 Telephone encounter Ayanna Vicente [facility] [place] Start: 07-18-2021 End: 07-18-2021 ambulatory Ayanna Vicente Other [employer] Other Start: 07-18-2021 Telephone encounter Ayanna Vicente [facility] [place] Start: 06-18-2021 End: 06-18-2021 ambulatory Ayanna Vicente Other [employer] Other Start: 06-18-2021 Telephone encounter Ayanna Vicente [facility] Start: 04-24-2021 [facility] Start: 04-04-2021 Office outpatient vi sit 25 minutes Ayanna Vicente [facility] Start: 02-08-2021 End: 02-08-2021 Orders Only Dale Espinoza PA-C Work Phone: Orthopaedics Comment on above: Pain in both knees, unspecified chronicity (Primary Dx) Procedures Date Procedure Procedure Detail Performing Clinician Start: 05-26-2024 Plain X-ray of left hip Ayanna Vicente DO Work Phone: Start: 05-26-2024 X-ray of left knee, four views Ayanna Vicente DO Work Phone: Start: 05-18-2024 Screening mammograph y of bilateral breasts DO Ayanna Vicente Work Phone: Start: 05-06-2024 Bacteria identified in Urine by Culture DO Ayanna Vicente Work Phone: Start: 05-06-2024 Urine culture Ayanna go DO Work Phone: Start: 10-17-2023 Urine culture DO Ayanna Vicente Work Phone: Start: 04-24-2023 Plain x-ray of pelvi s [...] Phone: Start: 08-12-2022 Plain chest X-ray DO Vasile Vicente Work Phone: Start: 04-04-2022 CBC + DIFF Francine justice MD Work Phone: Start: 04-04-2022 Lactate dehydrogenase ldh Francine Lares MD Work Phone: Start: 01-21-2022 Duplex scan of lower limb veins DO Ayanna Vicente Work Phone: Start: 01-21-2022 Plain X-ray of [...] SUSAN RANDOLPH Start: 07-14-2009 Arthroplasty of knee JE NNIFER JAX Start: 07-14-1999 Arthroplasty of knee DAYDAY RANDOLPH Start: 07-14-1997 History of hernia repair SUSAN RANDOLPH Start: 07-14-1995 Appendectomy SUSAN MAGAÑA Start: 07-14-1991 History of hernia repair SSUAN RANDOLPH Start: 07-14-1984 H/O: hysterectomy SUKUMAR RANDOLPH [...] Treatment Date Care Activity Detail Author Start: 01-14-2032 Urine microalbumin profile DTaP,Tdap,Td Vaccine (2 - Td or Tdap) [facility] Start: 05-26-2027 Diabetes Screening Diabetes Screenin [facility] Start: 08-08-2026 Diabetes Screening Diabetes Screenin g [facility] Start: 02-07-2026 DIABETES SCREEN DIABETES SCREEN [facility] Start: 07-19-2025 DIABETES SCREEN DIABETES SCREEN [facility] Start: 11-24-2024 End: 11-24-2024 Follow-up encounter 11/24/2024 10:30 AM EDT Visit (SP) Office Hematology/Oncology [address] [place] [address] [place] [address] Chad Freitas MD [address] [place] [address] [place] [address] 6 month follow up Hematology/Oncology Comment on above: 6 month follow up Start: 11-24-2024 End: 11-24-2024 Patient encounter procedure 11/24/2024 10:15 AM EDT Office Visit [facility] [address] [place] [address] [place] [address] 6 month follow up [facility] Comment on above: 6 month follow up Start: 11-15-2024 End: 11-15-2024 Patient encounter procedure 11/15/2024 11:00 AM EDT Office Visit Rheumatology [address] [place] [address] [place] [address] [facility] [address] 6 month follow up Rheumatology Comment on above: 6 month follow up Start: 05-11-2024 Patient referral [facility] Work Phone: Start: 05-06-2024 Bacteria identified in Urine by Culture Urine Culture [facility] Start: 04-05-2024 Patient referral [facility] Work Phone: Start: 02-05-2024 Patient referral [facility] Work Phone: Start: 11-17-2023 End: 11-17-2023 Patient encounter procedure 11/17/2023 1:15 PM EDT Procedure Visit [facility] [address] [place] [id number] James Smith DPM [address] [place] [address] [facility] Start: 10-17-2023 Bacteria identified in Urine by Culture [facility] Start: 08-18-2023 Shingrix Vaccine (2 of 2) Rodriguez grix Vaccine (2 of [address]) [facility] Start: 08-10-2023 End: 10-10-2023 CBC W Auto Differential panel - Blood CBC + DIFF Lab Routine CLL (chronic lymphocytic leukemia) (HCC) Expected: 08/10/2023 (Approximate), Expires: 10/10/2023 [facility] Work Phone: Comment on above: Expected: 08/10/2023 (Approximate), Expires: 10/10/2023 Start: 08-10-2023 End: 10-10-2023 Comprehensive metabolic 2000 panel - Serum or Plasma COMP METABOLIC PANEL Lab Routine CLL (chronic lymphocytic leukemia) (HCC) Expected: 08/10/2023 (Approximate), Expires: 10/10/2023 [facility] Work Phone: Comment on above: Expected: 08/10/2023 (Approximate), Expires: 10/10/2023 Start: 07-14-2023 Advance Directive Discussion Advance Directive Discussion [facility] Start: 03-14-2023 Influenza vaccination C [facility] Start: 01-16-2023 End: 03-18-2023 CBC W Auto Differential panel - Blood CBC + DIFF Lab Routine CLL (chronic lymphocytic leukemia) (HCC) Expected: 01/16/2023 (Approximate), Expires: 03/18/2023 [facility] Work Phone: Comment on above: Expected: 01/16/2023 (Approximate), Expires: 03/18/2023 Start: 01-16-2023 End: 03-18-2023 Comprehensive metabolic 2000 panel - Serum or Plasma COMP METABOLIC PANEL Lab Routine CLL (chronic lymphocytic leukemia) (HCC) Expected: 01/16/2023 (Approximate), Expires: 03/18/2023 [facility] Work Phone: Comment on above: Expected: 01/16/2023 (Approximate), Expires: 03/18/2023 Start: 08-19-2022 COVID-19 VACCINE (5 - Pfizer series) COVID-19 VACCINE (5 - Pfizer series) [facility] Start: 07-26-2022 End: 08-18-2023 Us breast uni real time with image limited US BREAST LTD LT Radiology Routine Axillary adenopathy Other signs and symptoms in breast Expected: 07/26/2022, Expires: 08/18/2023 [facility] Work Phone: Comment on above: Expected: 07/26/2022 , Expires: 08/18/2023 Start: 07-19-2022 End: 09-18-2022 CBC W Auto Differential panel - Blood CBC + DIFF Lab Routine CLL (chronic lymphocytic leukemia) (HCC) Expected: 07/19/2022 (Approximate), Expires: 09/18/2022 [facility] Work Phone: Comment on above: Expected: 07/19/2022 (Approximate), Expires: 09/18/2022 Start: 07-19-2022 End: 09-18-2022 Comprehensive metabolic 2000 panel - Serum or Plasma COMP METABOLIC PANEL Lab Routine CLL (chronic lymphocytic leukemia) (HCC) Expected: 07/19/2022 (Approximate), Expires: 09/18/2022 [facility] Work Phone: Comment on above: Expected: 07/19/2022 (Approximate), Expires: 09/18/2022 Start: 07-19-2022 End: 09-18-2022 Lactate dehydrogenase [Enzymatic activity/volume] in Serum or Plasma LD LACTATE DEHYDRO Lab Routine CLL (chronic lymphocytic leukemia) (HCC) Expected: 07/19/2022 (Approximate), Expires: 09/18/2022 [facility] Work Phone: Comment on above: Expected: 07/19/2022 (Approximate), Expires: 09/18/2022 Start: 07-14-2022 ADVANCE DIRECTIVE DISCUSSION ADVANCE DIRECTIVE DISCUSSION [facility] Start: 07-14-2022 DEPRESSION ASSESSMENT DEPRESSION ASS ESSMENT [facility] Start: 04-04-2022 End: 06-04-2022 [id number] [Mass/volume] in Serum or Plasma [facility] Work Phone: Comment on above: Expected: 04/04/2022 , Expires: 06/04/2022 Start: 04-04-2022 End: 06-04-2022 Chronic hepatitis differentiation between hepatitis B and C virus panel - Serum or Plasma [facility] Work Phone: Comment on above: Expected: 04/04/2022 , Expires: 06/04/2022 Start: 04-04-2022 End: 06-04-2022 FLOW CYTOMETRY PERIPHERAL BLOOD LEUK/LYMPH (FCLEUK) [facility] Work Phone: Comment on above: Expected: 04/04/2022 , Expires: 06/04/2022 Start: 03-14-2022 Influenza vaccination INFLUENZA (#1) 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 Start: 07-14-2021 ADVANCE DIRECTIVE DISCUSSION ADVANCE DIRECTIVE DISCUSSION [facility] Start: 07-14-2021 DEPRESSION ASSESSMENT DEPRESSION ASS ESSMENT [facility] Start: 03-14-2021 Influenza vaccination INFLUENZA (#1) [facility] Start: 2007 ADVANCE DIRECTIVE DISCUSSION ADVANCE DIRECTIVE DISCUSSION [facility] Start: 2007 BONE DENSITY BONE DENSITY [facility] Start: 2007 PNEUMOCOCCAL: 65+ (1 - PCV) PNEUMOCOCCAL: 65+ (1 - PCV) [facility] Start: 2007 PNEUMOVAX AGE 65 AND OVER WITH 5YR LOOKBACK (#1) PNEUMOVAX AGE 65 AND OVER WITH 5YR LOOKBACK (#1) [facility] Start: 2007 Screening for osteoporosis Bone Density Screening [facility] Start: 1992 Screening for malign ant neoplasm of colon [facility] Start: 1992 SHINGRIX VACCINE (1 of 2) RODRIGUEZ GRIX VACCINE (1 of 2) [facility] Start: 1987 DIABETES SCREEN DIABETES SCREEN [facility] Start: 1961 SHINGRIX VACCINE (1 of 2) RODRIGUEZ GRIX VACCINE (1 of 2) [facility] Start: 12-21-1961 Urine microalbumin profile DTAP,TDAP,TD (1 - Tdap) [facility] Start: 1960 Anxiety Screening Anxiety Screening [facility] Start: 1960 Depression Screening Depression Scre pedro [facility] Start: 1960 HEPATITIS C SCREENING HEPATITIS C SC BLANCA [facility] Start: 1954 Adult depression screening assessment DEPRESSION SCREENING [facility] Start: 1954 COVID-19 VACCINE (1) COVID-19 VACCIN E (1) [facility] Start: 1948 PNEUMOCOCCAL: 65+ (1 - PCV) PNEUMOCOCCAL: 65+ (1 - PCV) [facility] Bacteria identified in Urine by Culture [facility] CBC W Auto Different ial panel - Blood CBC + DIFF Lab Routine Lymphocytosis 04/04/2022 11:00 AM [facility] Work Phone: CBC W Auto Different ial panel - Blood COMPLETE BLOOD COUNT AND DIFFERENTIAL Lab Routine CLL (chronic lymphocytic leukemia) (HCC) 05/26/2024 2:20 PM EST [facility] Work Phone: Comprehensive metabo lic 1999 panel - Serum or Plasma [facility] Comprehensive metabo lic 1999 panel - Serum or Plasma [facility] FLOW CYTOMETRY PERIP HERAL BLOOD LEUK/LYMPH (FCLEUK) FLOW CYTOMETRY PERIPHERAL BLOOD LEUK/LYMPH (FCLEUK) Lab Routine Lymphocytosis 04/04/2022 11:02 AM [facility] Work Phone: FLOW SLIDE FLOW SLIDE Lab R outine Lymphocytosis 04/04/2022 11:02 AM [facility] Work Phone: Glucose measurement estimated from glycated hemoglobin [facility] Hepatitis B virus co re Ab [Presence] in Serum HEP B CORE AB TOTAL Lab Routine Lymphocytosis 04/04/2022 11:00 AM [facility] Work Phone: Hepatitis B virus noe rface Ab [Presence] in Serum HEP B SURF AB QUAL Lab Routine Lymphocytosis 04/04/2022 11:00 AM [facility] Work Phone: Hepatitis B virus noe rface Ab [Presence] in Serum by Immunoassay HEP B SURF AG SCRN Lab Routine Lymphocytosis 04/04/2022 11:00 AM EDT [facility] Work Phone: Hepatitis C virus Ab [Presence] in Serum HEP C AB IA W/CONF SCRN Lab Routine Lymphocytosis 04/04/2022 11:00 AM EDT [facility] Work Phone: End: 08-18-2023 SONYA SCREENING W NEYDA SONYA SCREENING W NEYDA Radiology Routine Encounter for screening mammogram for malignant neoplasm of breast 1 Occurrences starting 07/19/2022 until 08/18/2023 [facility] Work Phone: Comment on above: 1 Occurrences starti ng 07/19/2022 until 08/18/2023 MG Breast - bilatera l Screening [facility] Patient Education Wrist Fracture (DC) [facility] Work Phone: Patient referral [facility] Work Phone: End: 03-10-2022 Radiologic exam knee complete 4/more views XR KNEE GENERAL 4V AP BOTH/PA BOTH/LAT/MERC BILAT Radiology Routine Pain in both knees, unspecified chronicity 1 Occurrences starting 02/08/2021 until 03/10/2022 [facility] Comment on above: 1 Occurrences starti ng 02/08/2021 until 03/10/2022 End: 03-10-2022 Radiologic examination pelvis 1/2 views XR PELVIS 1V AP Radiology Routine Pain in both knees, unspecified chronicity 1 Occurrences starting 02/08/2021 until 03/10/2022 [facility] Comment on above: 1 Occurrences starti ng 02/08/2021 until 03/10/2022 Serum fructosamine measurement [facility] Work Phone: Urine culture [facility] XR Hip - left 2 Views [facility] XR Knee - left 4 Views [facility] End: 08-18-2023 XR RIBS/CHEST 3V AP RIB/OBLS/CXR LEFT XR RIBS/CHEST 3V AP RIB/OBLS/CXR LEFT Radiology Routine Rib pain 1 Occurrences starting 07/19/2022 until 08/18/2023 [facility] Work Phone: Comment on above: 1 Occurrences starti ng 07/19/2022 until 08/18/2023 [facility] Immunizations Immunization Date Immunization Notes Care Provider Fa [email or web address] 06-23-2023 COVID-19 (PFIZER) 12Y and older [facility] 06-23-2023 Pneumococcal Conjuga te Vaccine, 20 valent [facility] 06-23-2023 RSV, preF3, adj, pf [facility] 06-23-2023 zoster vaccine recombinant [facility] 04-15-2023 influenza, high dose seasonal, preservative-free Ayanna Vicente Other [employer] Other 04-15-2023 Fluzone QIV High-Dos e 65YR+ [facility] 04-15-2023 influenza virus vaccine, unspecified formulation James Smith DPM Work Phone: [facility] 04-22-2022 pneumococcal polysaccharide vaccine, 23 valent Ayanna Vicente Other [facility] 04-18-2022 COVID-19 mRNA Bivale nt Booster (Pfizer) [facility] 01-13-2022 tetanus toxoid, redu paola diphtheria toxoid, and acellular pertussis vaccine, adsorbed Ayanna Vicente Other [facility] 06-01-2021 COVID-19 Vaccine Pfi zer - Documentation Purposes Only Ayanna Vicente Other [facility] 04-25-2021 influenza virus vaccine, unspecified formulation SUSAN RANDOLPH [facility] 04-04-2021 influenza, high dose seasonal, preservative-free Ayanna Vicente Other [employer] Other 04-04-2021 influenza virus vaccine, unspecified formulation DO Ayanna Vicente Work Phone: [facility] 04-04-2021 Influenza, High-dose Seasonal, Quadrivalent, Preservative Free James Smith DPM Work Phone: [facility] 09-01-2020 COVID-19 Vaccine Pfi zer - Documentation Purposes Only Ayanna Vicente Other [facility] 09-01-2020 SARS-CoV-2 (COVID-19 ) [id number] vaccine SUSAN RANDOLPH [facility] 08-11-2020 COVID-19 Vaccine Pfi zer - Documentation Purposes Only Ayanna Vicente Other [facility] 08-11-2020 SARS-CoV-2 (COVID-19 ) [id number] vaccine SUSAN RANDOLPH [facility] 03-14-2020 influenza virus vaccine, unspecified formulation SUSAN RANDOLPH [facility] 07-14-2019 pneumococcal conjuga te vaccine, 13 valent [facility] 04-03-2019 Seasonal trivalent influenza vaccine, adjuvanted, preservative free [facility] 04-03-2019 pneumococcal polysaccharide vaccine, 23 valent Ayanna Vicente Other [facility] 04-03-2019 influenza, seasonal, injectable Ayanna Vicente Other [facility] 05-25-2018 Influenza, injectabl e, Madin Anjelica Canine Kidney, preservative free, quadrivalent [facility] 05-25-2018 influenza, seasonal, injectable Ayanna Vicente Other [facility] 04-22-2018 Kenalog -40 mg Ayanna Vicente Other [employer] Other Payers Date Payer Category Payer Self-pay [id number] 2022 Unknown [id number] 2020 Private Health Insurance [facility] AARP SUPPLEMENT [id number] 2020-Present Indemnity [id number] 2020 Private Health Insurance [facility] AARP SUPPLEMENT [id number] 2020-Present [phone] [address] [place] [address] Indemnity [id number] 2007 Medicare MEDICARE MEDICAR E A AND B [id number] 2007-Present [place] Medicare [id number] 2007 Medicare [id number] 1959 Medicare [id number] 1959 Unknown [id number] [id number] 1942 Unknown [id number] 2.16.840.1.101737.3.579.2 .356 1942 Unknown [id number] 2.16.840.1.139672.3.579.2 .593 1942 Unknown [id number] 2.16.840.1.241801.3.579.2 .1259 1942 Unknown [id number] 2.16.840.1.396327.3.579.2 .1259 1942 Unknown [id number] 2.16.840.1.309681.3.579.2 .1259 1942 Unknown [id number] 2.16.840.1.772634.3.579.2 .727 1942 Unknown [id number] 2.16.840.1.911560.3.579.2 .196 1942 Unknown [id number] 2.16.840.1.971378.3.579.2 .196 1942 Unknown [id number] 2.16.840.1.974818.3.579.2 .196 Unknown [id number] 2.16.840.1.754769.3.579.2 .531 Unknown [id number] 2.16.840.1.694714.3.579.2 .531 Unknown [id number] [id number] .531 Unknown [id number] [id number] .531 Social History Date Type Detail Facility Start: 02-20-2004 End: 04-04-2022 Tobacco smoking status NHIS Former smoker [facility] Comment on above: quit smoking in 1984 Start: 07-14-1979 End: 07-14-1999 History of tobacco use Current smoker [facility] Work Phone: Start: 02-20-2004 [facility] intake Not [facility] Start: 1940 Sex Assigned At Not on file C [facility] Start: 07-19-2022 End: 02-07-[address] [facility] Start: 1940 Sex Assigned At Female F [facility] Start: 07-14-1979 End: 07-14-1999 History of tobacco use Cigarette Smoker [facility] Start: 04-04-2022 End: 02-07-2023 Cigarettes smoked current (pack per day) - Reported 1.5 [facility] Start: 04-04-2022 Tobacco use and exposure Smokeless tobacco non-user [facility] Start: 04-04-2022 End: 08-08-2023 Alcohol intake Ex-drinker (finding) [facility] Start: 03-25-2022 End: 04-18-2022 Exposure to SARS-CoV-2 (event) Not sure [facility] Adult Depression Screening Assessment 0 [facility] Start: 12-07-2022 Tobacco smoking stat us NHIS Never smoked tobacco [facility] Start: 08-21-2023 End: 08-28-2023 Alcohol intake Current drinker of alcohol (finding) [facility] Start: 12-07-2022 Alcohol Comment Alcohol: 1-2 d rinks occasionally. Caffeine: 3-4 cups/day coffee [facility] Start: 05-27-2024 Sex Female (finding) [facility] Medical Equipment Procedure Code Equipment Code Equipment [...] ALLOGRAFT FUSELO X LUMBAR FDA Start: 03-24-2017 [place] Deformity FDA Start: 03-24-2017 CANCELLOUS [...] ALLOGRAFT FUSELO X LUMBAR FDA Start: 03-24-2017 [place] One Level Deformity FDA Start: 03-24-2017 CANCELLOUS [...] ALLOGRAFT FUSELO X LUMBAR FDA Start: 03-24-2017 [place] One Level Deformity FDA Start: 03-24-2017 CANCELLOUS [...] ALLOGRAFT FUSELO X LUMBAR FDA Start: 03-24-2017 [place] One Level Deformity FDA Start: 03-24-2017 CANCELLOUS [...] ALLOGRAFT FUSELO X LUMBAR FDA Start: 03-24-2017 [place] One Level Deformity FDA Start: 03-24-2017 CANCELLOUS [...] ALLOGRAFT FUSELO X LUMBAR FDA Start: 03-24-2017 [place] One Level Deformity FDA Start: 03-24-2017 CANCELLOUS [...] ALLOGRAFT FUSELO X LUMBAR FDA Start: 03-24-2017 [place] One Level Deformity FDA Start: 03-24-2017 CANCELLOUS [...] ALLOGRAFT FUSELO X LUMBAR FDA Start: 03-24-2017 [place] One Level Deformity FDA Start: 03-24-2017 CANCELLOUS [...] ALLOGRAFT FUSELO X LUMBAR FDA Start: 03-24-2017 [place] One Level Deformity FDA Start: 03-24-2017 CANCELLOUS [...] ALLOGRAFT FUSELO X LUMBAR FDA Start: 03-24-2017 [place] One Level Deformity FDA Start: 03-24-2017 CANCELLOUS [...] ALLOGRAFT FUSELO X LUMBAR FDA Start: 03-24-2017 [place] One Level Deformity FDA Start: 03-24-2017 CANCELLOUS [...] ALLOGRAFT FUSELO X LUMBAR FDA Start: 03-24-2017 [place] One Level Deformity FDA Start: 03-24-2017 CANCELLOUS [...] ALLOGRAFT FUSELO X LUMBAR FDA Start: 03-24-2017 [place] One Level Deformity FDA Start: 03-24-2017 CANCELLOUS [...] ALLOGRAFT FUSELO X LUMBAR FDA Start: 03-24-2017 [place] One Level Deformity FDA Start: 03-24-2017 CANCELLOUS [...] ALLOGRAFT FUSELO X LUMBAR FDA Start: 03-24-2017 [place] One Level Deformity FDA Start: 03-24-2017 CANCELLOUS [...] ALLOGRAFT FUSELO X LUMBAR FDA Start: 03-24-2017 [place] One Level Deformity FDA Start: 03-24-2017 CANCELLOUS [...] ALLOGRAFT FUSELO X LUMBAR FDA Start: 03-24-2017 [place] One Level Deformity FDA Start: 03-24-2017 CANCELLOUS [...] ALLOGRAFT FUSELO X LUMBAR FDA Start: 03-24-2017 [place] One Level Deformity FDA Start: 03-24-2017 CANCELLOUS [...] ALLOGRAFT FUSELO X LUMBAR FDA Start: 03-24-2017 [place] One Level Deformity FDA Start: 03-24-2017 CANCELLOUS [...] ALLOGRAFT FUSELO X LUMBAR FDA Start: 03-24-2017 [place] One Level Deformity FDA Start: 03-24-2017 CANCELLOUS 15CC CRUSHED FDA Start: 03-24-2017 CROSSLINK CAPLOX II MED/LG FDA Start: 03-24-2017 NUVASIVE LOCK SCREWS FDA Star t: 03-24-2017 NUVASIVE LOCK SCREWS FDA Star t: 03-24-2017 NUVASIVE LOCK SCREWS FDA Star t: 03-24-2017 NUVASIVE LOCK SCREWS FDA Star t: 03-24-2017 Goals Date Patient Goal Desired Activity /State Functional Status Date Assessment Result Facility 02-24-2024 Functional Status N/A [facility] 02-11-2023 Functional Status N/A [facility] 01-26-2022 Functional status Patient is Pro gressing Toward [facility] Work Phone: Mental Status Date Assessment Result Facility 01-26-2022 Cognitive function Cognitive Sta tus Patient at [facility] Work Phone: Clinical Notes 04-04-2021 to 06-08-2024 Young Herrera LPN - 06/08/2024 1:05 PM ESTPatient InstructionsChad Freitas MD - 05/26/2024 2:00 PM ESTPerZohaib alonzo MD - 05/17/2024 12:56 PM EST Note Date & Type Note Facility 06-08-2024 Note HNO ID: [id number] Author: YOUNG HERRERA LPN Service: ? Author Type: LICENSED NURSE Type: Progress Notes Filed: 06/08/2024 13:05 Note Text: Eye exam for Plaquenil toxicity received from [facility] . Exam date was 06/07/2024. Exam shows no signs of Plaquenil toxicity. Forms sent for scanning. [facility] 06-08-2024 History of Present illness Narrative Eye exam for Plaquenil toxicity received from [facility] . Exam date was 06/07/2024. Exam shows no signs of Plaquenil toxicity. Forms sent for scanning. documented in this encounter [facility] 05-26-2024 Instructions Chad Freitas MD - 05/26/2024 2:09 PM EST Labs today F/u in 6 months documented in this encounter [facility] 05-26-2024 History of Present illness Narrative Images from the original note were not included. PATIENT NAME: Kathy Washburn CLINIC NO.: [id number] ATTENDING PHYSICIAN: Chad Freitas MD DATE OF SERVICE: 05/25/24 Some of the elements of this note have been copied from previous progress note dated 08/08/23. All the information has been reviewed carefully. Diagnosis: Binet Stage A CLL Treatment History: HPI: Kathy Washburn is a 83 year old year old female here for follow up. Doing very well and denies any fevers and or chills. He is going in a cruise with his son 05/25/24: - Doing well - No major complaints - C/o night sweats - Did mammogram last week at [facility]. - Scheduled to see Retail Sales Merchandiser PAST MEDICAL HISTORY Diagnosis Date Depression Diabetes mellitus (HCC) Hypertension Hypothyroidism Inflammatory bowel diseases (IBD) Leukocytosis Mixed hyperlipidemia Neuropathy Rheumatism, unspecified Social History Tobacco Use Smoking status: Former Current packs/day: 0.00 Average packs/day: 1.5 packs/day for 20.0 years (30.0 ttl pk-yrs) Types: Cigarettes Start date: 07/14/1979 Quit date: 07/14/1999 Years since quittin.8 Smokeless tobacco: Never Vaping Use Vaping status: Never Used Substance Use Topics Alcohol use: Not Currently [...] of hands/feet. No weakness. PHYSICAL EXAMINATION: BP 92/51 Pulse 70 Temp (Src) 97 (Temporal) Resp 16 Ht 5' 7.992 (1.73m) Wt 232 lb 3.2 oz (105.3kg) SpO2 91% BMI 35.31 kg/(m^2). Wt 102.7 kg (226 lb 6.4 [...] : Deferred LABS: Glucose (mg/dL) Date Value 08/08/2023 207 Potassium (mmol/L) Date Value 08/08/2023 4.9 Sodium (mmol/L) Date Value 08/08/2023 140 Chloride (mmol/L) Date Value 08/08/2023 103 CO2 (mmol/L) Date Value 08/08/2023 28 Creatinine (mg/dL) Date Value 08/08/2023 1.33 BUN (mg/dL) Date Value 08/08/2023 46 Anion Gap (mmol/L) Date Value 08/08/2023 9 Calcium, Total (mg/dL) Date Value 08/08/2023 10.1 Protein, Total (g/dL) Date Value 08/08/2023 7.5 Albumin (g/dL) Date Value 08/08/2023 4.4 Bilirubin, Total (mg/dL) Date Value 08/08/2023 0.3 Alkaline Phosphatase (U/L) Date Value 08/08/2023 121 AST (U/L) Date Value 08/08/2023 29 ALT (U/L) Date Value 08/08/2023 30 WBC Date Value Ref Range Status 05/26/2024 19.22 (H) 3.70 - 11.00 k/uL Preliminary Comment: No clot detected.Results checked and verified. RBC Date Value Ref Range Status 05/26/2024 4.23 3.90 - 5.20 m/uL Preliminary Hemoglobin Date Value Ref Range Status 05/26/2024 12.7 11.5 - 15.5 g/dL Preliminary Hematocrit Date Value Ref Range Status 05/26/2024 38.4 36.0 - 46.0 % Preliminary MCV Date Value Ref Range Status 05/26/2024 90.8 80.0 - 100.0 fL Preliminary MCH Date Value Ref Range Status 05/26/2024 30.0 26.0 - 34.0 pg Preliminary MCHC Date Value Ref Range Status 05/26/2024 33.1 30.5 - 36.0 g/dL Preliminary RDW-CV Date Value Ref Range Status 05/26/2024 14.2 11.5 - 15.0 % Preliminary Platelet Count Date Value Ref Range Status 05/26/2024 244 150 - 400 k/uL Preliminary MPV Date Value Ref Range Status 05/26/2024 10.4 9.0 - 12.7 fL Preliminary Abs Neut (Segs + Bands) Date Value Ref Range Status 08/08/2023 5.44 1.45 - 7.50 k/uL Final Lymphocytes % Date Value Ref Range Status 08/08/2023 69.0 % Final Abs Lymph (Normal + Reactive) Date Value Ref Range Status 08/08/2023 13.41 (H) 1.00 - 4.00 k/uL Final Monocytes % Date Value Ref Range Status 08/08/2023 2.0 % Final Abs Haines Date Value Ref Range Status 08/08/2023 0.39 <0.87 k/uL Final Eosin% Date Value Ref Range Status 08/08/2023 1.0 % Final Abs Eosin Date Value Ref Range Status 08/08/2023 0.19 <0.46 k/uL Final Basophils % Date Value Ref Range Status 08/08/2023 0.0 % Final Abs Baso Date Value Ref Range Status 08/08/2023 0.00 <0.11 k/uL Final PATH: Flow 03/2022: Interpretation: The lymphocytes are composed of a mixture of T-cells (23%; CD4:CD8 ratio = 1.75), NK cells (1%) and B-cells (76%). The B-cells display an abnormal immunophenotype [...] Assessment and Plan: Kathy Washburn is a 83 year old year old female here for follow up. CLL - Continue to monitor and no indications for therapy. CBC today showed stable blood counts. Uptodate with mammogram. Advised her to obtain the results from PCP. See back in 6 months Thank you for the kind referral. If there are any questions and or concerns please do not hesitate to contact me at [phone]. Chad Freitas MD Hematology/Medical Oncology [facility] spent a total of 20 minutes on the date of the service which included preparing to see the patient, [id number] patient care, completing clinical documentation, obtaining and/or reviewing separately obtained history, counseling and educating the patient/family/caregiver, and ordering medications, tests, or procedures. CC: Ayanna Vicente DO documented in this encounter [facility] 05-26-2024 Note HNO ID: [id number] Author: CHAD FREITAS MD Service: ? Author Type: Physician Type: Progress Notes Filed: 05/26/2024 14:41 Note Text: PATIENT NAME: Kathy Washburn CLINIC NO.: [id number] ATTENDING PHYSICIAN: Chad Freitas MD DATE OF SERVICE: 05/25/24 Some of the elements of this note have been copied from previous progress note dated 08/08/23. All the information has been reviewed carefully. Diagnosis: Binet Stage A CLL Treatment History: HPI: Kathy Washburn is a 83 year old year old female here for follow up. Doing very well and denies any fevers and or chills. He is going in a cruise with his son 05/25/24: - Doing well - No major complaints - C/o night sweats - Did mammogram last week at [facility]. - Scheduled to see Retail Sales Merchandiser PAST MEDICAL HISTORY Diagnosis Date Depression Diabetes mellitus (HCC) Hypertension Hypothyroidism Inflammatory bowel diseases (IBD) Leukocytosis Mixed hyperlipidemia Neuropathy Rheumatism, unspecified Social History Tobacco Use Smoking status: Former Current packs/day: 0.00 Average packs/day: 1.5 packs/day for 20.0 years (30.0 ttl pk-yrs) Types: Cigarettes Start date: 07/14/1979 Quit date: 07/14/1999 Years since quittin.8 Smokeless tobacco: Never Vaping Use Vaping status: Never Used Substance Use Topics Alcohol use: Not Currently [...] of hands/feet. No weakness. PHYSICAL EXAMINATION: BP 92/51 Pulse 70 Temp (Src) 97 (Temporal) Resp 16 Ht 5' 7.992 (1.73m) Wt 232 lb 3.2 oz (105.3kg) SpO2 91% BMI 35.31 kg/(m2). Wt 102.7 kg (226 lb 6.4 [...] : Deferred LABS: Glucose (mg/dL) Date Value 08/08/2023 207 Potassium (mmol/L) Date Value 08/08/2023 4.9 Sodium (mmol/L) Date Value 08/08/2023 140 Chloride (mmol/L) Date Value 08/08/2023 103 CO2 (mmol/L) Date Value 08/08/2023 28 Creatinine (mg/dL) Date Value 08/08/2023 1.33 BUN (mg/dL) Date Value 08/08/2023 46 Anion Gap (mmol/L) Date Value 08/08/2023 9 Calcium, Total (mg/dL) Date Value 08/08/2023 10.1 Protein, Total (g/dL) Date Value 08/08/2023 7.5 Albumin (g/dL) Date Value 08/08/2023 4.4 Bilirubin, Total (mg/dL) Date Value 08/08/2023 0.3 Alkaline Phosphatase (U/L) Date Value 08/08/2023 121 AST (U/L) Date Value 08/08/2023 29 ALT (U/L) Date Value 08/08/2023 30 WBC Date Value Ref Range Status 05/26/2024 19.22 (H) 3.70 - 11.00 k/uL Preliminary Comment: No clot detected.Results checked and verified. RBC Date Value Ref Range Status 05/26/2024 4.23 3.90 - 5.20 m/uL Preliminary Hemoglobin Date Value Ref Range Status 05/26/2024 12.7 11.5 - 15.5 g/dL Preliminary Hematocrit Date Value Ref Range Status 05/26/2024 38.4 36.0 - 46.0 % Preliminary MCV Date Value Ref Range Status 05/26/2024 90.8 80.0 - 100.0 fL Preliminary MCH Date Value Ref Range (more content not included)... [facility] 05-17-2024 Note HNO ID: [id number] Author: ZOHAIB GERMAN MD Service: ? Author Type: Physician Type: Progress Notes Filed: 05/17/2024 13:34 Note Text: Rheumatology Outpatient Clinic Date of Service: 05/17/2024 Patient: Kathy Washburn Medical Record: [id number] Primary Care Physician: Ayanna Vicente DO Last Rheumatology visit: None at [facility] Referring Provider: No referring provider defined for this encounter. History of Present Illness Kathy Washburn is a 83 year old White female who presents on 05/17/2024 for an in-person visit for evaluation of Joint Pain. HISTORY OF PRESENT ILLNESS Patient presents with complaints of joint pain and generalized myalgia pain. The patient had been under my care for osteoarthritis and fibromyalgia remotely with . She was lost to follow-up more than 3 years ago. She had been on treatment with hydroxychloroquine previously for her joint problems. She carries a past medical history of type 2 diabetes, hyperlipidemia, hypertension, hypothyroidism and neuropathy. She states that she has run out of the hydroxychloroquine sometime ago and has been experiencing increased stiffness and pain in her fingers and hands, shoulders more so on the right than the left, the left hip and both knees. In terms of the left hip he is status post spine surgery in the remote past and this seems to be interrelated with her hip pain. With her knees as she has had bilateral knee pain despite having both knees replaced. Morning stiffness is about 30 to 45 minutes. She is experiencing global myalgia based pain despite being on Lyrica and Effexor. She is treated for diabetic neuropathy with the Lyrica and Effexor was for depression but these 2 can overlap for fibromyalgia pain management. She states that her most recent hemoglobin A1c was still elevated at 8.5 and is on escalating doses of insulin. She does have an upcoming eye exam as a routine. She is currently being treated for UTI with Macrobid and has several more days to complete that course. Otherwise her general health has been relatively stable. Patient-Entered Data PAIN EVALUATION 05/17/2024 1256 Pain Level: 6 Pain Location: Generalized PROMIS Assessments 07/19/2022 04/18/2022 PROMIS Assessments Physical Health Percentile 53 53 Mental Health Percentile 43 43 Pain Score 5 3 RAPID 3 [place] Activities of Daily Living No Data Dress self? - Get in and out of bed? - Walk outdoors? - Wash and dry body? - Get in and out of car? - RAPID 3 Disease Activity Weighed Score Levels: 0 - 1: Near Remission 1.3 - 2.0: Low Severity 2.3 - 4.0: Moderate Severity 4.3 - 10.0: High Severity Review of Systems Review of Systems CONSTITUTION: Negative for: Weight loss or gain, Fever. Chills, Night sweats HEENT: Negative for: Nosebleeds, Mouth sores, Trouble swallowing, Dry mouth RESPIRATORY: Negative for: Cough, Shortness of breath, Pain with breathing, Coughing up blood GASTROINTESTINAL: Negative for: Melena, Diarrhea, Abdominal pain, Heartburn, MUSCULOSKELETAL: Positive for: Arthralgias and Myalgias Negative for: Muscle weakness, Joint swelling and Morning Joint Stiffness NEUROLOGICAL: Positive for: Numbness Negative for: Headaches and Memory loss SKIN: Negative for: Rashes, Sun sensitive rashes, Skin color changes, Hair loss, Nail changes EYES: Negative for: Eye pain, Eye redness, Visual disturbance, Eye dryness CARDIOVASCULAR: Negative for: Chest pain, Leg swelling, Arrhythmia, Presyncope GENITOURINARY: Negative for: Dysuria, Hematuria, Ulceration HEMATOLOGIC/LYMPHATIC: Negative for: Swollen glands All other reviewed and negative other than HPI. Past Medical History PAST MEDICAL HISTORY Diagnosis Date Depression Diabetes mellitus (HCC) Hypertension Hypothyroidism Inflammatory bowel diseases (IBD) Leukocytosis Mixed hyperlipidemia Neuropathy Rheumatism, unspecified Past Surgical History PAST SURGICAL HISTORY Procedure Laterality Date BACK SURGERY HX 2018 HERNIA REPAIR HX multiple TOTAL ABDOM HYSTERECTOMY TOTAL KNEE REPLACEMENT Bilateral 2011 Family History FAMILY HISTORY Problem Relation Age of Onset Cancer Mother Heart disease Father Hypertension Father Migraines Maternal Grandmother Heart disease Paternal Grandmother Heart disease Paternal Grandfather Social History Social History Tobacco Use Smoking status: Former Current packs/day: 0.00 Average packs/day: 1.5 packs/day for 20.0 years (30.0 ttl pk-yrs) Types: Cigarettes Start date: 07/14/1979 Quit date: 07/14/1999 Years since quittin.8 Smokeless tobacco: Never Vaping Use Vaping status: Never Used Substance Use Topics Alcohol use: Not Currently Drug use: Never Current Medications Current Outpatient Medications Medication Sig venlafaxine ER (EFFEXOR XR) 75 mg 24 hr capsule Take 75 mg by mouth once daily. insulin glargine (LANTUS) 100 unit/mL injection Inject subcutaneously (more content not included)... [facility] 05-17-2024 History of Present illness Narrative Images from the original note were not included. Rheumatology Outpatient Clinic Date of Service: 05/17/2024 Patient: Kathy Washburn Medical Record: [id number] Primary Care Physician: Ayanna Vicente DO Last Rheumatology visit: None at [facility] Referring Provider: No referring provider defined for this encounter. History of Present Illness Kathy Washburn is a 83 year old White female who presents on 05/17/2024 for an in-person visit for evaluation of Joint Pain. HISTORY OF PRESENT ILLNESS Patient presents with complaints of joint pain and generalized myalgia pain. The patient had been under my care for osteoarthritis and fibromyalgia remotely with . She was lost to follow-up more than 3 years ago. She had been on treatment with hydroxychloroquine previously for her joint problems. She carries a past medical history of type 2 diabetes, hyperlipidemia, hypertension, hypothyroidism and neuropathy. She states that she has run out of the hydroxychloroquine sometime ago and has been experiencing increased stiffness and pain in her fingers and hands, shoulders more so on the right than the left, the left hip and both knees. In terms of the left hip he is status post spine surgery in the remote past and this seems to be interrelated with her hip pain. With her knees as she has had bilateral knee pain despite having both knees replaced. Morning stiffness is about 30 to 45 minutes. She is experiencing global myalgia based pain despite being on Lyrica and Effexor. She is treated for diabetic neuropathy with the Lyrica and Effexor was for depression but these 2 can overlap for fibromyalgia pain management. She states that her most recent hemoglobin A1c was still elevated at 8.5 and is on escalating doses of insulin. She does have an upcoming eye exam as a routine. She is currently being treated for UTI with Macrobid and has several more days to complete that course. Otherwise her general health has been relatively stable. Patient-Entered Data PAIN EVALUATION 05/17/2024 1256 Pain Level: 6 Pain Location: Generalized PROMIS Assessments 07/19/2022 04/18/2022 PROMIS Assessments Physical Health Percentile 53 53 Mental Health Percentile 43 43 Pain Score 5 3 RAPID 3 [place] Activities of Daily Living No Data Dress self? - Get in and out of bed? - Walk outdoors? - Wash and dry body? - Get in and out of car? - RAPID 3 Disease Activity Weighed Score Levels: 0 - 1: Near Remission 1.3 - 2.0: Low Severity 2.3 - 4.0: Moderate Severity 4.3 - 10.0: High Severity Review of Systems Review of Systems CONSTITUTION: Negative for: Weight loss or gain, Fever. Chills, Night sweats HEENT: Negative for: Nosebleeds, Mouth sores, Trouble swallowing, Dry mouth RESPIRATORY: Negative for: Cough, Shortness of breath, Pain with breathing, Coughing up blood GASTROINTESTINAL: Negative for: Melena, Diarrhea, Abdominal pain, Heartburn, MUSCULOSKELETAL: Positive for: Arthralgias and Myalgias Negative for: Muscle weakness, Joint swelling and Morning Joint Stiffness NEUROLOGICAL: Positive for: Numbness Negative for: Headaches and Memory loss SKIN: Negative for: Rashes, Sun sensitive rashes, Skin color changes, Hair loss, Nail changes EYES: Negative for: Eye pain, Eye redness, Visual disturbance, Eye dryness CARDIOVASCULAR: Negative for: Chest pain, Leg swelling, Arrhythmia, Presyncope GENITOURINARY: Negative for: Dysuria, Hematuria, Ulceration HEMATOLOGIC/LYMPHATIC: Negative for: Swollen glands All other reviewed and negative other than HPI. Past Medical History PAST MEDICAL HISTORY Diagnosis Date Depression Diabetes mellitus (HCC) Hypertension Hypothyroidism Inflammatory bowel diseases (IBD) Leukocytosis Mixed hyperlipidemia Neuropathy Rheumatism, unspecified Past Surgical History PAST SURGICAL HISTORY Procedure Laterality Date BACK SURGERY HX 2018 HERNIA REPAIR HX multiple TOTAL ABDOM HYSTERECTOMY TOTAL KNEE REPLACEMENT Bilateral 2011 Family History FAMILY HISTORY Problem Relation Age of Onset Cancer Mother Heart disease Father Hypertension Father Migraines Maternal Grandmother Heart disease Paternal Grandmother Heart disease Paternal Grandfather Social History Social History Tobacco Use Smoking status: Former Current packs/day: 0.00 Average packs/day: 1.5 packs/day for 20.0 years (30.0 ttl pk-yrs) Types: Cigarettes Start date: 07/14/1979 Quit date: 07/14/1999 Years since quittin.8 Smokeless tobacco: Never Vaping Use Vaping status: Never Used Substance Use Topics Alcohol use: Not Currently Drug use: Never Current Medications Current Outpatient Medications Medication Sig venlafaxine ER (EFFEXOR XR) 75 mg 24 hr capsule Take 75 mg by mouth once daily. insulin glargine (LANTUS) 100 unit/mL injection Inject subcutaneously. 21 units LYRICA 225 mg ORAL capsule Take 225 mg by mouth twice daily. OXYCODONE-ACETAMINOPHEN 5-325 mg ORAL tablet as needed. METFORMIN 1,000 mg ORAL tablet Take 1,000 mg by mouth twice daily with meals. LEVOTHYROXINE 88 mcg ORAL tablet LASIX 20MG TABLET Take one(1) tablet daily. INDERAL LA 60MG CAPSULE SA Take one(1) tablet daily. ZETIA 10MG TABLET Take one(1) tablet daily. atorvastatin (LIPITOR) 20 mg tablet Take 20 mg by mouth. (Patient taking differently: Take 20 mg by mouth. ) ZESTRIL 20MG TABLET Take 10 mg by mouth once daily. (Patient taking differently: Take 10 mg by mouth once daily. ) ASPIRIN 81MG TABLET Take one (1) tablet daily . CENTRUM SILVER TABLET Take one(1) tablet daily. hydrOXYchloroQUINE (PLAQUENIL) 200 mg tablet Take 2 tablets by mouth once daily. No current facility-administered medications for this visit. Last Ophthalmology Check for Plaquenil (Hydroxychloroquine) Last OCT Macula Exam No resulted procedures found. Last Visual Field Exam No resulted procedures found. Labs Latest Ref Rng & Units 08/08/2023 02/07/2023 07/19/2022 04/04/2022 CBC WBC 3.70 - 11.00 k/uL 19.43 18.65 16.68 13.38 Hemoglobin 11.5 - 15.5 g/dL 12.9 12.1 12.9 12.3 Hematocrit 36.0 - 46.0 % 40.8 37.0 40.0 38.6 Platelet Count 150 - 400 k/uL 276 240 262 230 Abs Neut (ANC) 1.45 - 7.50 k/uL 5.44 5.60 4.01 3.08 Abs Lymph 1.00 - 4.00 k/uL 13.41 12.31 11.45 9.37 Latest Ref Rng & Units 08/08/2023 02/07/2023 07/19/2022 CMP Sodium 136 - 144 mmol/L 140 138 138 Potassium 3.7 - 5.1 mmol/L 4.9 4.4 5.0 Chloride 97 - 105 mmol/L 103 101 102 CO2 22 - 30 mmol/L 28 26 30 Glucose 74 - 99 mg/dL 207 117 129 BUN 7 - 21 mg/dL 46 35 23 Creatinine 0.58 - 0.96 mg/dL 1.33 1.16 0.86 Calcium 8.5 - 10.2 mg/dL 10.1 9.2 9.5 AST 13 - 35 U/L 29 21 22 ALT 7 - 38 U/L 30 21 20 Alkaline Phosphatase 34 - 123 U/L 121 119 115 Latest Ref Rng & Units 02/20/2004 ESR, WSR WSR 0 - 30 mm/Hr 5 Latest Ref Rng & Units 02/20/2004 CRP CRP 0.0 - 2.0 mg/dL 0.7 Latest Ref Rng & Units 04/04/2022 Hepatitis Screen Hep B Core Ab, Total Negative Negative Hep B Surf Ab Qual Negative Negative Hep C Antibody IA Negative Negative Hep B Surface Ag Negative Negative Imaging Last XR Hand/Finger - Impression Only No resulted procedures found. Last MRI Hand - Impression Only No resulted procedures found. Last XR Chest - Impression Only No resulted procedures found. Last XR Cervical Spine - Impression Only XR CERV OTHER 4V AP/LAT/OBL Resulted: 03/25/2019 (Final result) Health Maintenance Current Immunizations Reviewed on 07/19/2022 Name Date COVID-19 vaccine ([employer]) 03/19/2024, 06/23/2023 COVID-19 vaccine, bivalent ([employer]) 04/18/2022 COVID-19 vaccine, monovalent ([employer]) 06/01/2021, 09/01/2020, 08/11/2020 Physical Exam GENERAL APPEARANCE: Well groomed. Alert and oriented x 3. In no distress. VITAL SIGNS: BP 117/75 Pulse 62 Ht 5' 7.992 (1.73m) Wt 227 lb 15.3 oz (103.4kg) BMI 34.67 kg/(m^2). SKIN: No rash, thickening, nodules, discoloration. EYES: PERRL, EOMI. No inflammation seen. HENT: External examination and palpation of the ears and nose normal. Lips, teeth, and gums normal. Oropharynx and tongue normal. No lesions or exudate. NECK: No mass or asymmetry. RESPIRATORY: Normal respiratory effort. Clear to auscultation and percussion. CARDIOVASCULAR: Heart RRR without gallop, murmur, or rub. No bruits across chest or neck. EXTREMITIES: Normal and equal pulses in all 4 extremities. No edema. ABDOMEN: BS normal. No bruits, No tenderness, mass, or hepatosplenomegaly. NEUROLOGIC: Sensory exam normal. MUSCULOSKELETAL EXAMINATION: Soft tissue tender points: None Motor exam: Normal 5+/5+ muscle strength. Normal bulk and tone. Cervical spine: No visible abnormalities. Full ROM. No tenderness to palpation. Thoracic spine: No visible abnormalities. No tenderness to palpation. Lumbar spine: No visible abnormalities. Full ROM. No tenderness to palpation. Joint Exam 05/17/2024 Right Left Glenohumeral Tender Tender CMC Tender Tender MCP 1 Tender Tender MCP 2 Tender Tender MCP 3 Tender Tender Knee Tender Tender The following joints were examined and normal: Left Sternoclavicular, Right Sternoclavicular, Left Acromioclavicular, Right Acromioclavicular, Left Elbow, Right Elbow, Left Wrist, Right Wrist, Left MCP 4, Right MCP 4, Left MCP 5, Right MCP 5, Left IP (thumb), Right IP (thumb), Left PIP 2 (finger), Right PIP 2 (finger), Left PIP 3 (finger), Right PIP 3 (finger), Left PIP 4 (finger), Right PIP 4 (finger), Left PIP 5 (finger), Right PIP 5 (finger), Left Ankle, Right Ankle, Left MTP 1, Right MTP 1, Left MTP 2, Right MTP 2, Left MTP 3, Right MTP 3, Left MTP 4, Right MTP 4, Left MTP 5, Right MTP 5 Joint Exam Data (across time) 05/17/2024 Joint Exam Total Tender 10 Total Swollen 0 Impression Diagnoses: (M15.0) Primary osteoarthritis involving multiple joints (primary encounter diagnosis) (M79.7) Fibromyalgia (E11.9, Z79.4) Type 2 diabetes mellitus without complication, with long-term current use of insulin ([facility]) Plan Orders this visit: Office Visit on 05/17/24 hydrOXYchloroQUINE (PLAQUENIL) 200 mg tablet Discussed the current status of her osteoarthritis and fibromyalgia as moderately active. Presently I believe the best approach is to treat her arthritis first and foremost and we will resume the hydroxychloroquine at 400 mg daily. I dispensed 180 tablets and 3 additional refills. I revisited the side effect profile of the hydroxychloroquine including the need for annual eye exam. As stated above she will be undergoing her baseline eye exam later this month. She can initiate the hydroxychloroquine after she completes her course some Macrobid in the next week. Return in about 6 months (around 11/14/2024). I spent a total of patient 60 minutes on the date of the service which included preparing to see the patient, fjss-bh-ptol patient care, completing clinical documentation, obtaining and/or reviewing separately obtained history, performing a medically appropriate examination, counseling and educating the patient/family/caregiver, and ordering medications, tests, or procedures. Medical Decision Making: Problems: Moderate: 1+ chronic illnesses with change and New problem with uncertain prognosis Risk: High: High risk from testing/treatment Medical Decision Making Level: 4 - Moderate ___ Zohaib German MD Rheumatology Date: May 17, 2024 Time: 12:56 PM documented in this encounter [facility] 05-11-2024 Hospital Discharge instructions Ambulatory OrdersReferral to Neurology Time Frame: 05/11/24, Location: None [facility] Work Phone: 03-08-2024 Evaluation note Authored March 08, 2024 3: 24pm The above note written by __ _Melanie Conde____ acting as human recorder, note dictated by Dr. Slater .I performed the above HPI, ROS, and Examination. I formulated and dictated the treatment plan and was present for entire encounter. Ayanna Vicente D.O. Author Ayanna [facility] Authored February 05, 2024 9:11 am The above note written by __ _Melanie Conde____ acting as human recorder, note dictated by Dr. Slater .I performed the above HPI, ROS, and Examination. I formulated and dictated the treatment plan and was present for entire encounter. Ayanna Vicente D.O. [facility] Work Phone: 1([phone]) 516-869008-26-2024 Evaluation note* Author Ayanna [facility] Authored March 08, 2024 3: 24pm The above note written by __ _Melanie Conde____ acting as human recorder, note dictated by Dr. Slater .I performed the above HPI, ROS, and Examination. I formulated and dictated the treatment plan and was present for entire encounter. Ayanna Vicente D.O. Author Ayanna [facility] Authored April 05, 2024 10:47am The above note written by __ _Melanie Conde____ acting as human recorder, note dictated by Dr. Slater .I performed the above HPI, ROS, and Examination. I formulated and dictated the treatment plan and was present for entire encounter. Ayanna Vicente D.O. [facility] Work Phone: 1(185) 881-876508-26-2024 Evaluation note* Author Ayanna [facility] Authored March 08, 2024 3: 24pm The above note written by __ _Melanie Conde____ acting as human recorder, note dictated by Dr. Slater .I performed the above HPI, ROS, and Examination. I formulated and dictated the treatment plan and was present for entire encounter. Ayanna Vicente D.O. Author Ayanna [facility] Authored May 11, 2024 3 :30pm The above note written by __ _Melanie Conde____ acting as human recorder, note dictated by Dr. Slater .I performed the above HPI, ROS, and Examination. I formulated and dictated the treatment plan and was present for entire encounter. Ayanna Vicente D.O. Author [facility] Authored April 05, 2024 10:47am The above note written by __ _Melanie Conde____ acting as human recorder, note dictated by Dr. Slater .I performed the above HPI, ROS, and Examination. I formulated and dictated the treatment plan and was present for entire encounter. Ayanna Vicente D.O. [facility] Work Phone: 1(247) 700-339508-26-2024 Evaluation note* Author Ayanna [facility] Authored March 08, 2024 2: 24pm The above note written by __ _Melanie Conde____ acting as human recorder, note dictated by Dr. Slater .I performed the above HPI, ROS, and Examination. I formulated and dictated the treatment plan and was present for entire encounter. Ayanna Vicente D.O. Author [facility] Authored May 11, 2024 2 :30pm The above note written by __ _Melanie Conde____ acting as human recorder, note dictated by Dr. Slater .I performed the above HPI, ROS, and Examination. I formulated and dictated the treatment plan and was present for entire encounter. Ayanna Vicente D.O. Author [facility] Authored April 05, 2024 9:47am The above note written by __ _Melanie Conde____ acting as human recorder, note dictated by Dr. Slater .I performed the above HPI, ROS, and Examination. I formulated and dictated the treatment plan and was present for entire encounter. Ayanna Vicente D.O. [facility] Work Phone: 1(999) 218-400008-13-2024 Hospital Discharge instructions Patient Education 02/24/2024 10:42:26 Overactive Bladder, Adult Overactive Bladder, Adult Overactive [...] your health care provider. General instructions Take jyan-lgy-iipnpdk and prescription medicines only as told by [...] provider. Document Revised: 03/19/2021 Document Reviewed: 03/19/2021 [employer] Patient Education 2022 [employer]. Follow Up Care 02/11/2023 12:11:14 With:SUSAN RANDOLPH PA-C, URL Address: [address] [place] [address]. [place] [address] [phone] When: Unknown Comments:6 mos (no labs) [facility] 08-13-2024 NotePatient Education Obstetrics and Gynecology Overactive Bladder, Adult [...] as stroke, dementia, Parkinson's disease, or multiple sclerosis(MS). ? Eat or drink alcohol, spicy food, [...] health care provider. General instructions ? Take xjoa-nvz-wqdlsve and prescription medicines only as told by [...] urinate. This will help your health care (more content not included)...[facility]07-25-2024 Evaluation note* Author Ayanna Vicente [facility] Authored February 05, 2024 9:11 am The above note written by __ _Melanie Conde____ acting as human recorder, note dictated by Dr. Slater .I performed the above HPI, ROS, and Examination. I formulated and dictated the treatment plan and was present for entire encounter. Ayanna Vicente D.O. [facility] Work Phone: [phone]) [phone] Evaluation note* Author Ayanna Vicente [facility] Authored October 21, 2023 4:11 pm The above note written by __ _Melanie Conde____ acting as human recorder, note dictated by Dr. Slater .I performed the above HPI, ROS, and Examination. I formulated and dictated the treatment plan and was present for entire encounter. Ayanna Vicente D.O. [facility] Work Phone: 1(987) 211-843902-15-2024 History of Present illness Narrative* James Smith, DPWilfredo - 08/28/2023 1:45 PM EST Images from the original note were not [...] 150 Interested in diabetic shoes/inserts Dispensed Kandy [id number] in Purple, size 11 M on 04/11/22. [...] open areas were noted. documented in this encounterSac-Osage [id number] Evaluation note* Encounter Date Diagnosis Assessment Notes Treatment Notes Treatment Clinical Notes Jul, Pain in right hip (ICD-10 [...] sacroiliac and hip area for pain relief.Recommend lyoa-xib-wizdrfv Thermacare or heat patches to use alongside the lidocaine patch. 3. 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 Monitor the degeneration and consider a preventative approach. Encourage the patient to take Tylenol arthritis for overall help. 4. Bone density: - Plan: Dexa scan within normal limits. Jul, Pain in left hip (ICD-10 - M25.552) Jul, Sacroiliac inflammation (ICD-10 - M46.1) Jul, Cervical pain (ICD-10 - M54.2) Jul, DDD (degenerative disc disease), lumbar (ICD-10 - M51.36) Language Learning Class Other 01-26-2024 NoteHNO ID: [id number] Author: FRANCINE LARES MD Service: ? Author Type: Physician Type: Progress Notes Filed: 08/08/2023 14:59 Note Text: PATIENT NAME: Kathy Washburn [facility] NO.: [id number] ATTENDING PHYSICIAN: Francine Lares MD DATE OF [...] 15.0 % Preliminary Platele (more content not included)...[facility]01-03-2024 Evaluation note* Encounter Date Diagnosis Assessment Notes [...] back (trigger point injection) done by Dr. Vicetne in 2014 but when she returned to [...] She will continue to monitor her memory. Language Learning Class Other 10-03-2023 Evaluation note* Encounter Date Diagnosis [...] s he has about immunizations were answered. Language Learning Class Other 10-02-2023 Evaluation note* Encounter Date Diagnosis Assessment Notes Treatment Notes Treatment Clinical Notes Apr, Insomnia (ICD-10 - G47.00) Apr, Neuropathy (ICD-10 - G62.9) Language Learning Class Other 08-15-2023 Evaluation note* Encounter Date Diagnosis [...] Feb, Lumbar disc disease (ICD-10 - M51.9) Language Learning Class Other 08-01-2023 Hospital Discharge instructions Patient Education [...] your health care provider. General instructions Take jcvd-idj-lcjuzvn and prescription medicines only as told by [...] provider. Document Revised: 03/19/2021 Document Reviewed: 03/19/2021 Elsevier Patient Education 2022 [employer]. Follow Up Care 01/23/2023 15:26:59 With:JAX BECKMAN, SUSAN Miller, URL Address: [place] [address] When: Unknown [facility] [employer] 07-28-2023 History of Present illness Narrative* Francine Lares MD - 02/07/2023 1:38 PM EDT Images from the original note were not included. PATIENT NAME: Kathy Washburn CLINIC NO.: [id number] ATTENDING PHYSICIAN: Francien Lares MD DATE OF SERVICE: February 07, [...] Range Status 07/19/2022 5.0 % Final Abs Haines Date Value Ref Range Status 07/19/2022 0.84 [...] do not hesitate to contact me at [phone]. Francine Lares MD Hematology/Medical Oncology [facility] spent a total of 30 minutes on the date of the service which included preparing to see the patient, fook-lw-btgu patient care, completing clinical documentation, obtaining and/or reviewing separately obtained history, counseling and educating the patient/family/caregiver, and ordering medications, tests, or procedures. CC: Ayanna Vicente DO documented in this encounterSt. [facility] note* Encounter Date Diagnosis Assessment Notes [...] prescription of Cipro when she was in [place], she finds that her symptoms seem to happen when she is traveling. We discussed her seeing Dr. El for evaluation due to recurrent urine infections. She voices that she has not contacted that office but will do this. Dec, Other 1:43 PM - 1:59 PM Language Learning Class Other 06-26-2023 Evaluation note* Encounter Date Diagnosis Assessment Notes Treatment Notes Treatment Clinical Notes Dec, Hyperlipidemia (ICD-10 - E78.5) Language Learning Class Other 04-05-2023 Evaluation note* Encounter Date Diagnosis Assessment Notes Treatment Notes Treatment Clinical Notes Oct, Neuropathy (ICD-10 - G62.9) Language Learning Class Other 03-22-2023 Evaluation note* Encounter Date Diagnosis Assessment Notes Treatment Notes Treatment Clinical Notes Sep, Insomnia (ICD-10 - G47.00) Language Learning Class Other 03-22-2023 Evaluation note* Encounter Date Diagnosis [...] to see her blood sugars below 90. [place] sugar readings are in the 120's. She [...] M79.0) I did advise her that Dr. German has returned to the area so I [...] discussion for her to have with her double cutter. Sep, Insomnia (ICD-10 - G47.00) We discussed [...] has not driven past any local towns ([facility]). She did have a cardiac work up [...] abuse treatments are being prescribed. 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 Language Learning Class Other 01-09-2023 Miscellaneous Notes* Telephone Encounter - Francine Lares MD - 07/22/2022 12:41 PM EST Thanks * Telephone Encounter - Lori Monzon Pss - 07/22/2022 11:[address] Ly office to check on this referral spoke with Leola. She states they did receive this referral and when they called patient and offered her an appointment on 08/14 patient declined appointment and stated she would call her PCP. Lori Monzon [facility] I had already called [facility] office before [...] in to see Dr Ly sooner. Lisa Green, RN * Telephone Encounter - Susan Todd [facility] - 07/19/2022 2:21 PM EST Records faxed to Dr. Ly. * Telephone Encounter - Susana Grant - 07/19/2022 1:21 PM EST Referral to Dr. Ly for Right ear pain. Heather/Royer: Can you please send information and follow up? Manuel Romero put information in your mailbox forreferral. Thank you! Susana Grant documented in this encounterSt. [facility] History of Present illness Narrative* Francine Lares MD - 07/19/2022 12:34 PM EST PATIENT NAME: Kathy Washburn CLINIC NO.: [id number] ATTENDING PHYSICIAN: Francine Lares MD DATE OF [...] 11.45 (H) 1.00 - 4.00 k/uL Final Haines% Date Value Ref Range Status 07/19/2022 5.0 % Final Abs Haines Date Value Ref Range Status 07/19/2022 0.84 [...] do not hesitate to contact me at [phone]. Francine Lares MD Hematology/Medical Oncology [facility] spent a total of 30 minutes on the date of the service which included preparing to see the patient, qmnr-vq-khwj patient care, completing clinical documentation, obtaining and/or reviewing separately obtained history, counseling and educating the patient/family/caregiver, and ordering medications, tests, or procedures. Medical Decision Making: Medical Decision Making Level: 1 - N/A CC: Ayanna Vicente DO documented in this encounterSt. Mary[facility] Nurse Note* Lluvia Samuel MA - 07/19/2022 12:20 PM EST Patient would like to ask you about her right ear, it is painful to touch, her head also hurts and also has Left side pain. Lluvia Samuel MA documented in this encounterSt. [facility]11[facility] Evaluation note* Encounter Date Diagnosis Assessment Notes Treatment Notes Treatment Clinical Notes May, Cystitis (ICD-10 - N30.90) Language Learning Class Other 10-11-2022 Evaluation note* Encounter Date Diagnosis Assessment Notes Treatment Notes Treatment Clinical Notes Apr, BMI 31.0-31.9,adult (ICD-10 - Z68.31) Language Learning Class Other 10-06-2022 History of Present illness Narrative* Francine Lares MD - 04/18/2022 11:59 AM EDT PATIENT NAME: Kathy Washburn CLINIC NO.: [id number] ATTENDING PHYSICIAN: Francine Lares MD DATE OF [...] 9.37 (H) 1.00 - 4.00 k/uL Final Haines% Date Value Ref Range Status 04/04/2022 5.0 % Final Abs Haines Date Value Ref Range Status 04/04/2022 0.67 [...] do not hesitate to contact me at [phone]. Francine Lares MD Hematology/Medical Oncology [facility] I spent a total of 30 minutes on the date of the service which included preparing to see the patient, kyjh-mg-nhbr patient care, completing clinical documentation, obtaining and/or reviewing separately obtained history, counseling and educating the patient/family/caregiver, and ordering medications, tests, or procedures. Medical Decision Making: Medical Decision Making Level: 1 - N/A CC: Ayanna Vicente DO documented in this encounterSt. Mary[facility] Evaluation note* Encounter Date Diagnosis Assessment Notes Treatment Notes Treatment Clinical Notes Mar, Neuropathy (ICD-10 - G62.9) Language Learning Class Other 09-23-2022 Miscellaneous Notes* Telephone Encounter - Francine Lares MD - 04/05/2022 5:06 PM EDT Spoke to the patient and answered her questions * Telephone Encounter - Niurka Hood RN - 04/05/2022 4:08 PM EDT Pt notified and verbalizes understanding. Pt would like to speak w/ you before her next appointment. Asks that you call her @ [phone] when you have time. Thanks! Niurka Hood [...] no one picked up documented in this encounterSt. Mary'[facility] History of Present illness Narrative* rFancine Lares MD - 04/04/2022 11:32 AM EDT PATIENT NAME: Kathy Washburn CLINIC NO.: [id number] ATTENDING PHYSICIAN: Francine Lares MD DATE OF [...] ago. Has a son who lives in [place]. She does not smoke nor drink heavily. [...] TOTAL ABDOM HYSTERECTOMY TOTAL KNEE REPLACEMENT Bilateral 2012 FAMILY HISTORY Problem Relation Age of Onset [...] me to participate in Mrs. Kathy Washburn [facility], if there are any questions or concerns please do not hesitate to contact me at the number below. Francine Lares M.D. Hematology/Medical Oncology [facility] [phone] CC: Ayanna Vicente DO documented in this encounterSt. Mary'[facility] Evaluation note* Encounter Date Diagnosis Assessment Notes [...] hurt. She has not followed with any cardiology clinical nurse specialist. She saw Dr. Akins in the [...] would like to refer her to a certified corporate travel executive for evaluation, and she agrees. A referral [...] if needed. She can also see a body technician/painter to discuss injections. She voices that she saw Dr. Guillaume in the past for migraines and would like to see Dr. Morales for evaluation. For now she will try to take the pain medication more often and see if this provides her with better relief and will continue to monitor. I will refer her to Dr. Morales for evaluation. 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 She voices understanding. Mar, Encounter for screening [...] find out where Dr. Milner went in [place] and then will refer her back to Dr. Milner to discuss a colonoscopy. Mar, Weight loss (ICD-10 - R63.4) She has lost 1.5 pounds since last seen. Language Learning Class Other 09-06-2022 Evaluation note* Encounter Date Diagnosis Assessment Notes Treatment Notes Treatment Clinical Notes Mar, Diabetes type 2, uncontrolled (ICD-10 - E11.65) Mar, Hypertension (ICD-10 - I10) Mar, Neuropathy (ICD-10 - G62.9) Language Learning Class Other 08-26-2022 Evaluation note* Encounter Date Diagnosis Assessment Notes Treatment Notes Treatment Clinical Notes Feb, Diabetes type 2, uncontrolled (ICD-10 - E11.65) Language Learning Class Other 07-27-2022 Evaluation note* Encounter Date Diagnosis [...] Ambien, she is taking Melatonin. 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 Language Learning Class Other 06-27-2022 Evaluation note* Encounter Date Diagnosis Assessment Notes Treatment Notes Treatment Clinical Notes Dec, Dysphagia (ICD-10 - R13.10) Language Learning Class Other 06-27-2022 Evaluation note* Encounter Date Diagnosis Assessment Notes Treatment Notes Treatment Clinical Notes Dec, Other spondylosis with radiculopathy, lumbar region (ICD-10 - M47.26) Language Learning Class Other 06-16-2022 Evaluation note* Encounter Date Diagnosis [...] Hammertoe of left foot (ICD-10 - M20.42) 16 Dec, 2021 Foot deformity (ICD-10 - M21.969) Language Learning Class Other 06-08-2022 Evaluation note* Encounter Date Diagnosis Assessment Notes Treatment Notes Treatment Clinical Notes Dec, Peripheral edema (ICD-10 - R60.9) Language Learning Class Other 06-06-2022 Evaluation note* Encounter Date Diagnosis Assessment Notes Treatment Notes Treatment Clinical Notes Dec, History of colon polyps (ICD-10 - Z86.010) Dec, Irritable bowel syndrome with diarrhea (ICD-10 - K58.0) MAY USE IMODIUM NEEDED PT TO REPORT PROGRESS Language Learning Class Other 05-02-2022 Evaluation note* Encounter Date Diagnosis Assessment Notes Treatment Notes Treatment Clinical Notes November, Cystitis (ICD-10 - N30.90) Language Learning Class Other 03-22-2022 Evaluation note* Encounter Date Diagnosis [...] when she came home from traveling from [place] last week she had congestion and was coughing alot, she had alot of irritation in her throat and the back of her throat. She feels like someone put a bullet in her throat. She took a decongestant yesterday and feels better today. 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 I did recommend that she have [...] that she was able to travel to [place] last week on her own for the first time by herself with her back issues and did well. She did have to use a wheelchair. She did need a wheelchair while in the airport. An OARRS report was reviewed, no discrepancies noted. Frequent appointments needed due to addiction potential. She has not gone to the [facility]. She voices that she never got a call back from that center and did not pursue this because she got involved with a urologist then developed bowel issues. She voices that she will follow up with the [facility] and Dr. Regan for this issue. Sep, [...] Sep, Other 2:54 PM - 3:20 PM Language Learning Class Other 03-21-2022 Evaluation note* Encounter Date Diagnosis Assessment Notes Treatment Notes Treatment Clinical Notes Sep, Cough (ICD-10 - R05.9) Language Learning Class Other 03-03-2022 Evaluation note* Encounter Date Diagnosis [...] I did recommend that she see a application support technician for evaluation to discuss these issues further, [...] She agrees but she is going to [place] on 09-19-21 and will not return until [...] with the Imodium until she returns from [place] and is seen by Dr. Milner. She [...] Sep, Other 9:29 AM - 9:49 AM Language Learning Class Other 01-05-2022 Evaluation note* Encounter Date Diagnosis Assessment Notes Treatment Notes Treatment Clinical Notes Jul, Neuropathy (ICD-10 - G62.9) Language Learning Class Other 12-06-2021 Evaluation note* Encounter Date Diagnosis [...] refer her to the spine center in [place] but she did not pursue this. We [...] - N30.90) She currently follows with a glue machine operator. She also saw Dr. Redding for evaluation and he did a procedure on her bladder to help with bladder leakage, she was supposed to see him again but he was sick so she is trying to get in to see either him or another doctor such as Dr. Peterson or Dr. Gleason, she does not want to see his PA or COLLECTIONS SPECIALIST. She gets a pain in her vaginal area, describes it as a cut but now it feels as if it is going up higher. When she went to [employer]ix engineer scientology yesterday she felt like someone cut her [...] Jun, Other 2:53 PM - 3:23 PM Language Learning Class Other 10-12-2021 Evaluation note* Encounter Date Diagnosis Assessment Notes Treatment Notes Treatment Clinical Notes Apr, Neuropathy (ICD-10 - G62.9) Language Learning Class Other 09-22-2021 Evaluation note* Encounter Date Diagnosis [...] Dr. Regan is referring her to the [facility] spine center and she is seeing Oscar [...] the kidneys. She has never seen a network firewall engineer before. Her BUN is 40. Creatinine is [...] 6.2. We discussed referring her to a certified corporate travel executive for evaluation and to discuss this further but instead we will repeat lab in one month and if her level is this high or higher then we will do a referral through the [facility] in [place]. Mar, Knee pain (ICD-10 - M25.569) She [...] attending physical therapy and will see the [facility] soon. Mar, Weight loss (ICD-10 - R63.4) She has lost 5.5 pounds since last seen. She voices that she is trying to lose weight slowly. Encouraged her to continue with what she is doing. Language Learning Class Other Evaluation + Plan note Future Appointments Appointment Date:02/24/2024 10:00:00 AM Scheduled Provider:SUSAN RANDOLPH PA-C Location:[facility] Appointment Type:URO Office Visit [facility] evaluation note* Diagnosis Pain in both knees, unspecified chronicity- Primary [facility] note[facility] InformationNort The [employer] Other Evaluation note* Diagnosis Onset Date Resolution Status Abrasion acute Acute hypotension acute Acute UTI acute TIP (acute kidney injury) ac [place] Contusion of leg, right acut e Fall [...] acute Diabetes chronic Hypertension chronic Hypothyroidism chronic [facility] [employer] Work Phone: Evaluation note* Diagnosis Lymphocytosis- Primary Lymphocytosis (symptomatic) [facility] [place] [facility] Diagnosis CLL (chronic lymphocytic leukemia) (HCC)- Primary Chronic lymphoid leukemia, without mention of having achieved remission [facility] Diagnosis Onset Date Resolution Status Acute UTI acute Chronic back pain acute Depression acute Diabetic neuropathy acute Fall acute Hematoma of right lower leg acute Impaired mobility and activities of daily living acute Minor closed head injury acu te Right wrist fracture acute Diabetes chronic Hypertension chronic Hypothyroidism chronic [facility] [employer] Work Phone: Evaluation note* Diagnosis CLL (chronic lymphocytic leukemia) (HCC)- Primary Chronic lymphoid leukemia, without mention of having achieved remission Right ear pain Otalgia, unspecified Rib pain Chest pain, unspecified Axillary adenopathy Enlargement of lymph nodes Other signs and symptoms in breast Encounter for screening mammogram for malignant neoplasm of breast Other screening mammogram [facility] noteNo assessment information availableNewark [facility] Work Phone: Evaluation note* Diagnosis CLL (chronic lymphocytic leukemia) (HCC)- Primary Chronic lymphoid leukemia, without mention of having achieved remission documented in this encounter 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) Pain in both feet [facility] Diagnosis Onset Date Resolution Status Chronic lymphocytic leukemia acute Cystitis acute Diabetes type 2, uncontrolled acute Lumbar disc disease with radiculopathy acute Neuropathy acute Other abnormal blood chemistry acute Other chcf (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 therapy acute Peripheral edema acute HLD (hyperlipidemia) chronic Hypertension chronic Hypothyroidism chronic Insomnia chronic [facility] Work Phone: Evaluation note* Diagnosis Onset Date Resolution Status Right otitis media acute Cystitis acute Diabetes type 2, uncontrolled acute Other spondylosis with radiculopathy, lumbar region acute Rheumatism acute Insomnia chronic [facility] Work Phone: Evaluation note* Diagnosis Primary osteoarthritis involving multiple joints- Primary Fibromyalgia Mylagia and myositis, unspecified Type 2 diabetes mellitus without complication, with long-term current use of insulin ([facility]) documented in this encounter [facility] note* Diagnosis CLL (chronic lymphocytic leukemia) (HCC)- Primary Chronic lymphoid leukemia, without mention of having achieved remission documented in this encounter [facility] general Narrative - Reported* Type Description Date Medical History -2007 pelvic exam done Medical History 2009 mammogram-normal Medical History 2009 colonoscopy Medical History 2003 CT scan done Medical History 2007 eye exam Medical History Zostavax done Medical History Flu/H1N1 vaccine Medical History -2010 mammogram Medical History -2010 DEXA scan Medical History Follows with Dr. Iglesias yearl y Medical History 08-22-2011 Left femur [facility] Medical History 08-22-2011 Chest x-ray [facility] Medical History stress test-normal ([facility]) Medical History Mammogram 2015 - Dr. Fritz Surgical History bilateral inguinal hernia repai r 1982 Surgical History left knee 2000 Surgical History hysterectomy 1985 Surgical History abdominal hernia 1992 Surgical History hernia repair 1998 Surgical History appendectomy 1986 Surgical History right knee replacement (Dr Monique hdz) -2009 Surgical History left total knee (Dr Haque) 2201 2 Surgical History geraldo inguinal hernia repair 1982 Surgical History lt knee 2000 Surgical History right knee replacement- Dr. Shaun hdz -2009 Surgical History left total knee-Dr. Haque -2011 Surgical History lumbar surgery Dr Frias 03/24/17 Surgical History Colonoscopy, col Bonifacio on polyps - Hospitalization History see above Language Learning Class Other History general Narrative - Reported* Type Description Date Medical History -2007 pelvic exam done Medical History 2009 mammogram-normal Medical History 2009 colonoscopy Medical History 2003 CT scan done Medical History 2007 eye exam Medical History Zostavax done Medical History Flu/H1N1 vaccine Medical History -2010 mammogram Medical History -2010 DEXA scan Medical History Follows with Dr. Iglesias yearl y Medical History 08-22-2011 Left femur [facility] Medical History 08-22-2011 Chest x-ray [facility] Medical History stress test-normal ([facility]) Medical History Mammogram 2015 - Dr. Fritz Surgical History bilateral inguinal hernia repai r 1982 Surgical History left knee 2000 Surgical History hysterectomy 1985 Surgical History abdominal hernia 1992 Surgical History hernia repair 1997 Surgical History appendectomy 1985 Surgical History right knee replacement (Dr Monique hdz) Surgical History left total knee (Dr Haque) 2201 2 Surgical History geraldo inguinal hernia repair 1981 Surgical History lt knee 2000 Surgical History right knee replacement- Dr. Shaun hdz -2009 Surgical History left total knee-Dr. Haque -2011 Surgical History lumbar surgery Dr Frias 03/24/17 Surgical History Colonoscopy, Dr. Iglesias col on polyps - Hospitalization History see above Hospitalization History fx wrist and head lacera tion after a fall 01/13/22 Language Learning Class Other History general Narrative - Reported* Type Description Date Medical History pelvic exam done Medical History 2009 mammogram-normal Medical History 2009 colonoscopy Medical History 2004 CT scan done Medical History 2007 eye exam Medical History -2009 Zostavax done Medical History Flu/H1N1 vaccine Medical History -2010 mammogram Medical History DEXA scan Medical History Follows with Dr. Kelsie rivera y Medical History 08-22-2011 Left femur [facility] Medical History 08-22-2011 Chest x-ray [facility] Medical History stress test-normal ([facility]) Medical History [...] head lacera tion after a fall 01/13/22 Language Learning Class Other [facility]dwha general Narrative - Reported* Type Description Date Medical History pelvic exam done Medical History 2008 mammogram-normal Medical History 2008 colonoscopy Medical History 2003 CT scan done Medical History 2008 eye exam Medical History Zostavax done Medical History Flu/H1N1 vaccine Medical History mammogram Medical History DEXA scan Medical History Follows with Dr. Kelsie rivera y Medical History 08-22-2011 Left femur [facility] Medical History 08-22-2011 Chest x-ray [facility] Medical History stress test-normal ([facility]) Medical History [...] Frias 03/24/17 Surgical History Colonoscopy, Dr. Iglesias, on polyps - Hospitalization History see above Hospitalization History fx wrist and head lacera tion after a fall 01/13/22 Language Learning Class Other Hospital course Narrative No data available for this section [facility] instructions[facility] Work Phone: Hospital Discharge instructionsAmbulatory Orders* Referral to Sleep Medicine Time Frame: 02/05/24, Location: None [facility] Work Phone: Hospital Discharge instructionsAmbulatory Orders* Referral to General Surgery Time Frame: 04/05/24, Location: None [facility] Work Phone: Progress note No data available for this section [facility] reason for referral (narrative)* Diagnostic Procedure Only (Routine) Status Reason Specialty Diagnoses / Procedures Referred By Contact Referred To Contact Pending Review Auto-Generated Referral XR IMAGING Diagnoses Pain in both knees, unspecified chronicity Procedures XR PELVIS 1V AP X-RAY PELVIS AP ONLY Dale Espinoza PA-C [address] [place] [address] Xr Imaging * Diagnostic Procedure Only (Routine) Status Reason Specialty Diagnoses / Procedures Referred By Contact Referred To Contact Pending Review Auto-Generated Referral XR IMAGING Diagnoses Pain in both knees, unspecified chronicity Procedures XR KNEE GENERAL 4V AP BOTH/PA BOTH/LAT/MERC BILAT KNEE AP-WGT/LAT/MERCHA NT Dale Espinoza PA-C [address] [place] [address] Xr Imaging [facility] for referral (narrative)* Diagnostic Procedure Only (Routine) - Pending Review Specialty Diagnoses / Procedures Referred By Selin vasquez Referred To Contact BR IMAGING Diagnoses Encounter for screening mammogram for malignant neoplasm of breast Procedures SONYA SCREENING W NEYDA SCREENING DIGITAL BREAST TOMOSYNTHESIS BI SCREENING MAMMOGRAPHY BI 2-VIEW BREAST INC CAD Francine Lares MD [address] [place] [address] [facility] [address] [place] [id number] Referral ID Status Reason Start Date Expiration Date Visits Requested Visits Authorized [id number] Pending Review Auto-Generat ed Referral 07/19/2022 08/18/2023 1 1 * Diagnostic Procedure Only (Routine) - Pending Review Specialty Diagnoses / Procedures Referred By Selin vasquez Referred To Contact BR IMAGING Diagnoses Axillary adenopathy Other signs and symptoms in breast Procedures US BREAST LTD LT US BREAST UNI REAL TIME WITH IMAGE LIMITED Francine Lares MD [address] [place] [address] [facility] [address] [place] [id number] Referral ID Status Reason Start Date Expiration Date Visits Requested Visits Authorized [id number] Pending Review Auto-Generat ed Referral 07/26/2022 08/18/2023 1 1 * Diagnostic Procedure Only (Routine) - Pending Review Specialty Diagnoses / Procedures Referred By Selin vasquez Referred To Contact XR IMAGING Diagnoses Rib pain Procedures XR RIBS/CHEST 3V AP RIB/OBLS/CXR LEFT RADEX RIBS UNI W/POSTEROANT CH MINIMUM 3 VIEWS Francine Lares MD [address] [place] [address] Xr Imaging Referral ID Status Reason Start Date Expiration Date Visits Requested Visits Authorized [id number] Pending Review Auto-Generat ed Referral 07/19/2022 08/18/2023 1 1 * Consult, Test, Treat (Routine) - Authorized Specialty Diagnoses / Procedures Referred By Selin vasquez Referred To Contact Ent - Otolaryngology Diagnoses Right ear pain Procedures CONSULT TO ENT OFFICE/OUTPATIENT [facility] 60-74 MINUTES Francine Lares MD [address] [place] [address] Referral ID Status Reason Start Date Expiration Date Visits Requested Visits Authorized [id number] Authorized PCP Requested Referral 07/19/2022 07/19/[address] Reason appt pt needs cons ult to see Homa Mckeon /Dr. Corea for evaluation of lumbar pain Diagnosis 1 Other spondylosis wi th radiculopathy, lumbar region (M47.26) Referral Organization [facility] Family Medicin e [place] Referring Provider First Name Ayanna Referring Provider Last Name Sakina Referring Provider Specialty Family Prac art Referred Organization [facility] urosurgery Referred Provider Homa Mckeon Referred Address [address],[address] Referred Provider Specialty Nurse Uli cotto Referral Priority Routine General Notes Nereyda Sanchez 04/15/2023 03:33:35 PM > referral sent p2p. pt understands she will be contacted to schedule this appt Language Learning Class Other reason for visit Narrativereview labs, refill medication, discuss multiple issues, see treatment plan for further information Language Learning Class Other reason for visit NarrativePT HERE AT REQUEST OF DR VICENTE FOR EVALUATION AND TREATMENT OF CHANGE IN STOOL HABITS AND HISTORY OF IRRITABLE BOWEL SYNDROME AND COLON POLYPS, REFERRAL NOTE RECEIVEDNoFullbridge Other Rehbmb for visit Narrativereview labs/med refill, discuss multiple issues see treatment planNoFullbridge Other reason for visit NarrativeNeurosurgery Referral Update [facility] ImmusanT Other Summary Purpose Family History No Family History Records Found Relationship Condition Age at Onset Recorded Date/T maria g Not Specified History of inguinal hernia repair Unknow n Dementia Unknown Inguinal hernia Unknown Relationship Condition Age at Onset Recorded Date/T maria g Not Specified History of inguinal hernia repair Unknow n Dementia Unknown Inguinal hernia Unknown brother Parkinson's disease Unknown father Heart disease Unknown Unknown Family history of mental disorder Unknown grandparent Unknown Not Specified Unknown Malignant neoplasm Unknown sister Unknown Relationship Condition Age at Onset Recorded Date/T maria g Not Specified History of inguinal hernia repair Unknow n Dementia Unknown Inguinal hernia Unknown brother Parkinson's disease Unknown father Heart disease Unknown Unknown Family history of mental disorder Unknown grandparent Unknown mother Unknown Malignant neoplasm Unknown sister Unknown Advance Directives No Advanced Directives Records Found Advance Directive Response Recorded Date/ Time Advance Directives No March 08, 2017 12:39pm Advance Directive Response Recorded Date/ Time Advance Directives No March 08, 2017 11:39am Reason for Referral Reason evaluate and tr eat Diagnosis 1 Pain in right hip (M 25.551) Referral Organization [facility] urosurger Referring Provider First Name Homa Referring Provider Last Name Mckeon Referring Provider Specialty Nurse Pract batsheva Referred Organization [facility] Referred Provider Bonnie Slade Referred Address [address] [place], [place],[address] Referred Provider Specialty Pain Medicin e Referral Priority Routine General Notes Susan Ugarte 04:33:20 PM >received today, holding referral for todays visit note to be locked Reason evaluate and t reat for hip pain Diagnosis 1 Pain in right hip (M 25.551) Referral Organization [facility] urosurger Referring Provider First Name Homa Referring Provider Last Name Mckeon Referring Provider Specialty Nurse Pract itlillian Referred Organization [facility] Referred Provider Gume [place] Referred Address [address],[place],[address] Referred Provider Specialty Orthopedic S urgery Referral Priority Routine General Notes Susan Ugarte 04:34:14 PM >received today, sending p2p at this time for scheduling Reason Aqua therapy - evalu ate and treat Diagnosis 1 Pain in right hip (M 25.551) Diagnosis 2 Lumbar pain (M54.50) Referral Organization [facility] urosurger Referring Provider First Name Homa Referring Provider Last Name Mike Referring Provider Specialty Nurse Danielito herman Referred Organization [facility] Referred Address [address] [place], [place],[address] Referred Provider Specialty Physical The rapist Referral Priority Routine Reason appt pt would like to discuss hip, back, knee and sciatic pain Diagnosis 1 Other spondylosis wi th radiculopathy, lumbar region (M47.26) Referral Organization [facility] Lauro Referring Provider First Name Ayanna Referring Provider Last Name Sakina Referring Provider Specialty Family Neel cordova Referred Organization [facility] urosurger Referred Provider Homa Mckeon Referred Address [address] [facility] [address] ,[place],[address] Referred Provider Specialty Nurse Uli cotto Referral Priority Routine General Notes Nereyda Sanchez 07/16/2023 03:06:01 PM > referral sent p2p. pt understands she will be contacted to schedule this appt Reason appt pt is lu gilliam to see any of the providers consult for eval and treatment of rheumatism/prescribing of Plaquenil Diagnosis 1 Rheumatism, unspecif ied (M79.0) Referral Organization [facility] Lauro Referring Provider First Name Ayanna Referring Provider Last Name Sakina Referring Provider Specialty Family Neel cordova Referred Organization [facility] Referred Provider Esteban Saravia Referred Address [address] [facility] [place], [place],[address] Referred Provider Specialty Rheumatology Referral Priority Routine [...] Wrist fracture, righ t (S62.101A) Referral Organization [facility] Lauro Referring Provider First Name Ayanna Referring Provider Last Name Sakina Referring Provider Specialty Family Prac art Referred Organization [facility] Referred Provider Penny Mike Referred Address [address] [facility] [address] [place],[address] Referred Provider Specialty Hand Surgery Referral Priority Routine Referral Appointment Date 2022-05-22 General Notes Gerri Sanchezh 04/02/2022 01:53:20 PM > referral sent p2p. pt understands that she will be contacted to schedule this appt. SanchezFaridaNereyda 04/04/2022 09:15:21 AM > appt scheduled on 05/22/22 at 3pm Reason appt pt needs cons ult to discuss recurrent back pain/discuss injections Diagnosis 1 Other spondylosis wi th radiculopathy, lumbar region (M47.26) Referral Organization [facility] Valid[facility] Lauro Referring Provider First Name Ayanna Referring Provider Last Name Sakina Referring Provider Specialty [facility] Prac art Referred Organization [facility] Referred Provider Anthony Morales Referred Address [address] [place],[address] Referred Provider Specialty Psychiatry, Neurology (Osteopaths only) Referral Priority Routine General Notes Gerri Sanchezh 04/02/2022 02:48:49 PM > FLORI referral hard [...] Diagnosis 1 Leukocytosis (D72.82 9) [facility] Referring Provider First Name Ayanna Referring Provider Last Name Sakina Referring Provider Specialty [facility] Prac art Referred Organization [facility] Referred Provider Saqib Coleman [place]erred Address [address] [place] [place], [place],[address] Referred Provider Specialty Hematology/O ncology Referral Priority Routine General Notes SanchezFaridaNereyda 04/02/2022 02:41:02 PM > referral faxed with visit note, last several lab results and insurance cards. pt does not have a preference for whom she see and does understand that she will be contacted to schedule this appt. Reason appt pt needs cons ult to evaluate right knee pain Diagnosis 1 Knee pain, right (M2 5.561) Referral Organization [facility]uro Referring Provider First Name Ayanna Referring Provider Last Name Sakina Referring Provider Specialty Family Prac art Referred Organization [facility] Referred Provider Zohaib Akins II Referred Address [address] [place],[address] Referred Provider Specialty Orthopedic S urgery Referral Priority Routine General Notes Gerri Sanchezh 02/06/2022 02:16:49 PM > referral sent p2p. pt understands she will be contacted to schedule this appt. Reason appt pt needs cons ult to discuss change in stool habits, history of colon polyps, hx of IBS Diagnosis 1 Change in stool jacquie yesi (R19.4) Referral Organization [facility] [place] Referring Provider First Name Ayanna Referring Provider Last Name Sakina Referring Provider Specialty Family Prac art Referred Organization [facility] Gastroenterolo gy Referred Provider Ayanna Milner Referred Address [address] ,[place], [place],[address] Referred Provider Specialty Gastroentero logy Referral Priority Routine General Notes SanchezGerrih 09/13/2021 09:46:36 AM > referral sent p2p. [...] Chief Complaint e78.5 z79.899 e03.9 e11.65 MM47.26;M25.559;M25.561 Chief Complaint Appt , Pt Would Like To Discuss Hip, Ba Amb Documentation Amb Documentation E11.65 E78.5 E03.9 R79.89 N30.90 Chief Complaint Appt , Pt Would Like To Discuss Hip, Ba Amb Documentation Amb Documentation E11.65 E78.5 E03.9 R79.89 N30.90 Amb Documentation review labs/med refill Reason for Visit Chronic lymphocytic leukemia Cystitis Diabetes type 2, uncontrolled Lumbar disc disease with radiculopathy Neuropathy Other abnormal blood chemistry Other chcf (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 therapy Peripheral edema HLD (hyperlipidemia) Hypertension Hypothyroidism Insomnia Chief Complaint Amb Documentation E11.65 E78.5 E03.9 R79.89 N30.90 Amb Documentation review labs/med refill sore throat, congestion, cough Reason for Visit Chronic lymphocytic leukemia Cystitis Diabetes type 2, uncontrolled Lumbar disc disease with radiculopathy Neuropathy Other abnormal blood chemistry 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 Peripheral edema HLD (hyperlipidemia) Hypertension Hypothyroidism Insomnia Right otitis media Chief Complaint sore throat, congest ion, cough discuss meds/refill Reason for Visit Right otitis media Cystitis Diabetes type 2, uncontrolled Other spondylosis with radiculopathy, lumbar region Rheumatism Insomnia Chief Complaint sore throat, congest ion, cough discuss meds/refill diabetic shoes Reason for Visit Right otitis media Cystitis Diabetes type 2, uncontrolled Other spondylosis with radiculopathy, lumbar region Rheumatism Insomnia Diabetes Onychomycosis Peripheral neuropathy Chief Complaint sore throat, congest ion, cough discuss meds/refill diabetic shoes back pain/IBS Reason for Visit Right otitis media Cystitis Diabetes type 2, uncontrolled Other spondylosis with radiculopathy, lumbar region Rheumatism Insomnia Diabetes Onychomycosis Peripheral neuropathy Cystitis Irritable bowel syndrome with diarrhea Other spondylosis with radiculopathy, lumbar region Chief Complaint diabetic shoes back pain/IBS z79.89 Reason for Visit Diabetes Onychomycosis Peripheral neuropathy Cystitis Irritable bowel syndrome with diarrhea Other spondylosis with radiculopathy, lumbar region Chief Complaint diabetic shoes back pain/IBS z79.89 review labs/med refill Reason for Visit Diabetes Onychomycosis Peripheral neuropathy Cystitis Irritable bowel syndrome with diarrhea Other spondylosis with radiculopathy, lumbar region Cystitis Diabetes type 2, uncontrolled Hip pain, left Knee pain, left Memory changes Other abnormal blood chemistry Other spondylosis with radiculopathy, lumbar region HLD (hyperlipidemia) Hypothyroidism Chief Complaint diabetic shoes back pain/IBS z79.89 review labs/med refill G47.00 Reason for Visit Diabetes Onychomycosis Peripheral neuropathy Cystitis Irritable bowel syndrome with diarrhea Other spondylosis with radiculopathy, lumbar region Cystitis Diabetes type 2, uncontrolled Hip pain, left Knee pain, left Memory changes Other abnormal blood chemistry Other spondylosis with radiculopathy, lumbar region HLD (hyperlipidemia) Hypothyroidism Chief Complaint diabetic shoes back pain/IBS z79.89 review labs/med refill G47.00 Z12.31 Reason for Visit Diabetes Onychomycosis Peripheral neuropathy Cystitis Irritable bowel syndrome with diarrhea Other spondylosis with radiculopathy, lumbar region Cystitis Diabetes type 2, uncontrolled Hip pain, left Knee pain, left Memory changes Other abnormal blood chemistry Other spondylosis with radiculopathy, lumbar region HLD (hyperlipidemia) Hypothyroidism BMI 32.0-32.9,adult Chronic insomnia Hypnotic-dependent sleep disorder Chief Complaint Admit Date diabetic shoes March 08, 2024 2: 41pm back pain/IBS April 05, 2024 9:49am z79.89 May 06, 2024 1 2:18pm review labs/med refill May 11 2:37pm G47.00 May 12, 2024 1 :35pm Z12.31 May 18, 2024 2 :22pm M25.552 - Pain in left hip May 11:06am Reason for Visit Admit Date Diabetes March 08, 2024 2: 41pm Onychomycosis March 08, 2024 2: 41pm Peripheral neuropathy March 08, 2024 2:41pm Cystitis April 05, 2024 9:49am Irritable bowel syndrome with [facility] 9:49am Other spondylosis with radiculopathy, [facility] region April 05, 2024 9:49am Cystitis May 11, 2024 2 :37pm Diabetes type 2, uncontrolled May 112023 2:37pm Hip pain, left May 11, 2024 2 :37pm Knee pain, left May 11, 2024 2 :37pm Memory changes May 11, 2024 2 :37pm Other abnormal blood chemistry April 142023 2:37pm Other spondylosis with radiculopathy, [facility] region May 11, 2024 2:37pm HLD (hyperlipidemia) May 11, 2024 2:37pm Hypothyroidism May 11, 2024 2 :37pm BMI 32.0-32.9,adult May 12, 2024 1 :35pm Chronic insomnia May 12, 2024 1 :35pm Hypnotic-dependent sleep disorder Octobe r 2023 1:35pm Additional Source Comments INFORMATION SOURCE (unrecogn ized section and content) DATE CREATED AUTHOR 01/06/2021 [facility] DATE CREATED AUTHOR AUTHOR'S ORGANIZ ATION 08/16/2022 [facility] ical Center DATE CREATED AUTHOR AUTHOR'S ORGANIZ ATION 11/13/2022 [facility] DATE CREATED AUTHOR AUTHOR'S ORGANIZ ATION 02/05/2024 [facility] DATE CREATED AUTHOR AUTHOR'S ORGANIZ ATION 02/25/2024 [facility] DATE CREATED AUTHOR AUTHOR'S ORGANIZ ATION 05/28/2024 [facility] DATE CREATED AUTHOR AUTHOR'S ORGANIZ ATION 06/11/2024 [facility] DATE CREATED AUTHOR AUTHOR'S ORGANIZ ATION 06/13/2024 [facility] Source Comments (unrecognize d section and content) In the event this informatio n is protected by the Federal Confidentiality of Alcohol and Drug Abuse Patient Records regulations: The Federal rules restrict any use of the information to criminally investigate or prosecute any alcohol or drug abuse patient.[facility] the event this information is protected by the Federal Confidentiality of Alcohol and Drug Abuse Patient Records regulations: The Federal rules restrict any use of the information to criminally investigate or prosecute any alcohol or drug abuse patient.[facility] the event this information is protected by the Federal Confidentiality of Alcohol and Drug Abuse Patient Records regulations: The Federal rules restrict any use of the information to criminally investigate or prosecute any alcohol or drug abuse patient.[facility] the event this information is protected by the Federal Confidentiality of Alcohol and Drug Abuse Patient Records regulations: The Federal rules restrict any use of the information to criminally investigate or prosecute any alcohol or drug abuse patient.[facility] the event this information is protected by the Federal Confidentiality of Alcohol and Drug Abuse Patient Records regulations: The Federal rules restrict any use of the information to criminally investigate or prosecute any alcohol or drug abuse patient.[facility] the event this information is protected by the Federal Confidentiality of Alcohol and Drug Abuse Patient Records regulations: The Federal rules restrict any use of the information to criminally investigate or prosecute any alcohol or drug abuse patient.[facility] the event this information is protected by the Federal Confidentiality of Alcohol and Drug Abuse Patient Records regulations: The Federal rules restrict any use of the information to criminally investigate or prosecute any alcohol or drug abuse patient.[facility] the event this information is protected by the Federal Confidentiality of Alcohol and Drug Abuse Patient Records regulations: The Federal rules restrict any use of the information to criminally investigate or prosecute any alcohol or drug abuse patient.[facility] the event this information is protected by the Federal Confidentiality of Alcohol and Drug Abuse Patient Records regulations: The Federal rules restrict any use of the information to criminally investigate or prosecute any alcohol or drug abuse patient.[facility] the event this information is protected by the Federal Confidentiality of Alcohol and Drug Abuse Patient Records regulations: The Federal rules restrict any use of the information to criminally investigate or prosecute any alcohol or drug abuse patient.[facility] REASON FOR VISIT (unrecogniz ed section and content) Reason Comments Consult Reason Comments Care Coordination Results Reason Comments lymphocytosis Reason Comments Leukemia 3 month follow up Reason Comments Referral Information ENT Reason Comments CLL (chronic lymphocytic leukemia) Reason Comments Toenail Care Reason Comments Joint Pain Reason Comments Leukemia Transition Of Care Care Teams (unrecognized sec tion and content) Team Status: Inactive Member Role Status Kayla Vicente DO Primary Care Provide r, Attending Provider, Family Provider Active Team Status: Inactive Member Role Status Dates Ayanna Vicente DO Primary Care Provider, Family Provid er Active Galo Max MD Admit Provider, Attending Provider A ctive Rachel Penn , ALLYSSA Other Provider Active Josette Orourke , RN Other Provider Active Estrellita Camejo , RN Other Provider Active Ny Das , RN Other Provider Active Marcie Acosta , ALLYSSA Other Provider Active Laura Wall , RN Other Provider Active Yuliana Hale MD Other Provider Active Herman Kevin MD Other Provider Active Kitty Powell APRN Other Provider Active Madeline Juarez DO Other Provider Active Marcio Hernandez MD Other Provider Active Loco Velasquez DO Other Provider Active Elgin Irby MD [...] MD Other Provider Active Yanira Najera , COLLECTIONS SPECIALIST-C Other Provider Active Salas Winslow MD Other [...] Active Penny Mike MD Other Provider Active Susan Quarles , COLLECTIONS SPECIALIST-C Other Provider Active Gume Macedo , DO Other Provider Active Zohaib Akins II, MD Other Provider Active Team Status: Inactive Member Role Status Dates Ayanna Vicente , DO Primary Care Provider, Family Provid er Active aJmes Redding MD Emergency Provider Active Bertram Garrison MD Admit Provider, Attending Provider Active Team Status: Active Member Role Status Dates Ayanna Vicente , DO Family Provider Active Ayanna Vicente , DO Primary Care Provider Active Fund Director Relationship Specialty Start Date End Date Ayanna Vicente, DO [address] [place] [address] PCP - General Family Medicine 08/01/11 Ayanna Vicente, DO [address] [place] [address] Referring Family Medicine 10/04/20 Ayanna Vicente, DO [address] [place] [address] Referring Family Medicine 01/09/21 Fund Director Relationship Specialty Start Date End Date Ayanna Vicente, DO [address] [place] [address] PCP - General Family Medicine 08/01/11 Ayanna Vicente, DO [address] [place] [address] Referring Family Medicine 10/04/20 Ayanna Vicente, DO [address] [place] [address] Referring Family Medicine 01/09/21 Fund Director Relationship Specialty Start Date End Date Ayanna Vicente, DO [address] [place] [address] PCP - General Family Medicine 08/01/11 Ayanna Vicente, DO [address] [place] [address] Referring Family Medicine 10/04/20 Ayanna Vicente, DO [address] [place] [address] Referring Family Medicine 01/09/21 Fund Director Relationship Specialty Start Date End Date Ayanna Vicente, DO [address] [place] [address] PCP - General Family Medicine 08/01/11 Ayanna Vicente, DO [address] [place] [address] Referring Family Medicine 10/04/20 Ayanna Vicente, DO [address] [place] [address] Referring Family Medicine 01/09/21 Team Status: Inactive Member Role Status Dates Ayanna Vicente DO Primary Care Provider, Family Provid er Active Francine Lares MD Attending Provider Active Team Status: Inactive Member Role Status Dates Ayanna Vicente DO Primary Care Provider, Family Provid er Active Sharda S Domenic , COLLECTIONS SPECIALIST-C Attending Provider Active Fund Director Relationship Specialty Start Date End Date Ayanna Vicente, DO [address] [place] [address] PCP - General Family Medicine 08/01/11 Ayanna Vicente, DO [address] [place] [address] Referring Family Medicine 10/04/20 Ayanna Vicente, DO [address] [place] [address] Referring Family Medicine 01/09/21 Fund Director Relationship Specialty Start Date End Date Ayanna Vicente MD [address] [place] [address] PCP - General Family Medicine 12/10/22 Fund Director Relationship Specialty Start Date End Date Ayanna Vicente MD [address] [place] [address] PCP - General Family Medicine 12/10/22 Team Status: Inactive Member Role Status Dates PABLO Vasquez Attending Provider Active Start: August 12, 2023 End: August 12, 2023 Team Status: Active Member Role Status Dates Ayanna Vicente DO Primary Care Provider Active S tart: October 13, 2023 Melanie Conde LPN Attending Provider Active St art: October 13, 2023 Team Status: Active Member Role Status Dates Ayanna Vicente DO Primary Care Provider Active S tart: October 16, 2023 Melanie Conde LPN Attending Provider Active St art: October 16, 2023 Team Status: Inactive Member Role Status Dates Ayanna Vicente DO Primary Care Provide r, Attending Provider Active Start: October 17, 2023 End: October 17, 2023 Team Status: Active Member Role Status Dates Ayanna Vicente DO Primary Care Provider Active S tart: October 20, 2023 Melanie Conde LPN Attending Provider Active St art: October 20, 2023 Team Status: Inactive Member Role Status Dates Ayanna Vicente DO Primary Care Provide r, Attending Provider Active Start: October 21, 2023 End: October 21, 2023 Team Status: Inactive Member Role Status Dates Ayanna Vicente DO Primary Care Provider Active S tart: January 12, 2024 End: January 12, 2024 Letitia Pereira APRN Attending Provider Active Start: January 12, 2024 End: January 12, 2024 Team Status: Active Member Role Status Dates Ayanna Vicente DO Primary Care Provide r, Attending Provider Active Start: February 04, 2024 Team Status: Inactive Member Role Status Dates Ayanna Vicente DO Primary Care Provide r, Attending Provider Active Start: February 05, 2024 End: February 05, 2024 Team Status: Inactive Member Role Status Dates Ayanna Vicente DO Primary Care Provide r, Attending Provider Active Start: March 08, 2024 End: March 08, 2024 Team Status: Inactive Member Role Status Kayla Vicente DO Primary Care Provide r, Attending Provider Active Start: April 05, 2024 End: April 05, 2024 Team Status: Inactive Member Role Status Dates Ayanna Vicente DO Primary Care Provide r, Attending Provider Active Start: May 06, 2024 End: May 06, 2024 Team Status: Inactive Member Role Status Dates Ayanna Vicente DO Primary Care Provide r, Attending Provider Active Start: May 11, 2024 End: May 11, 2024 Team Status: Inactive Member Role Status Dates Ayanna Sheth MD Attending Provider Active S tart: May 12, 2024 End: May 12, 2024 Ayanna Vicente DO Primary Care Provide r, Referring Provider Active Start: May 12, 2024 End: May 12, 2024 Fund Director Relationship Specialty Start Date End Date Ayanna Vicente DO [address] [place] [address] PCP - General Family Medicine 08/01/11 Ayanna Vicente DO [address] [place] [address] Referring Family Medicine 10/04/20 Ayanna Vicente DO [address] [place] [address] Referring Family Medicine 01/09/21 Team Status: Inactive Member Role Status Dates Ayanna Vicente DO Primary Care Provide r, Attending Provider Active Start: May 18, 2024 End: May 18, 2024 Fund Director Relationship Specialty Start Date End Date Ayanna Vicente DO [address] [place] [address] PCP - General Family Medicine 08/01/11 Ayanna Vicente DO [address] [place] [address] Referring Family Medicine 10/04/20 Ayanna Vicente, [address] [place] [address] Referring Family Medicine 01/09/21 Team Status: Inactive Member Role Status Dates Ayanna Vicente DO Primary Care Provide r, Attending Provider Active Start: May 26, 2024 End: May 26, 2024 Team Status: Active Member Role Status Dates Ayanna Vicente DO Primary Care Provide r, Attending Provider Active Start: May 26, 2024 Fund Director Relationship Specialty Start Date End Date Ayanna Vicente DO [address] [place] [address] PCP - General Family Medicine 08/01/11 Ayanna Vicente DO [address] [place] [address] Referring Family Medicine 10/04/20 Ayanna Vicente DO [address] [place] [address] Referring Family Medicine 01/09/21 Goals (unrecognized section and content) Goals may [...] BE BASED ON THE PRIMARY CLINICAL RECORDS. [facility] [employer] provides no warranty or guarantee of the accuracy or completeness of information in this document.
[2024-06-15] MEDS: KETOROLAC TROMETHAMINE 30 MG/ML VIAL 15 MG IVP (20:14)
[2024-06-15] MEDS: 0.9 % SODIUM CHLORIDE 1,000 ML 1000 ML IV (20:14)
[2024-06-15 20:30] LABS: Alanine Aminotransferase 34 U/L (14-59); Albumin Level 3.5 g/dL (3.4-5.0); Alkaline Phosphatase 103 U/L (46-116); Anion Gap 10.9; Aspartate Amino Transferase 25 U/L (15-37); BUN Creatinine Ratio 21.8; Bilirubin Total 0.3 mg/dL (0.2-1.0); Calcium 9.1 mg/dL (8.5-10.1); Carbon Dioxide 28.4 mmol/L (21.0-32.0); Chloride 108 mmol/L (98-107); Estimated GFR (African America 43 (>=60 mL/min/1.73m^2); Estimated GFR (Non-African Ame 36 (>=60 mL/min/1.73m^2); Globulin 3.4 g/dL; Glucose 140 mg/dL (74-106); Potassium 4.3 mmol/L (3.5-5.1); Sodium 143 mmol/L (136-145); Total Protein 6.9 g/dL (6.4-8.2)
[2024-06-15 20:37] LABS: Atypical Lymphocytes Abs Man 1.76; Basophils Abs Manual 0.22 10^3/uL (0.00-0.10); Eosinophils Absolute Manual 0.44 10^3/uL (0.00-0.70); Lymphocytes Absolute Manual 11.88 10^3/uL (1.20-3.80); Smudge Cells SEEN
[2024-06-15 20:59] VITALS: BP 127/68; PULSE 57; O2SAT 98
[2024-06-15] MEDS: HYDROCODONE/ACET 5-325 MG TABLET 1 TAB PO (21:04)
[2024-06-15 21:36] VITALS: BP 129/73; PULSE 58; O2SAT 95
[2024-06-15] MEDS: PROMETHAZINE HCL 25 MG TABLET PO (21:56)
== END 2024-06-15 22:01 | disposition home or self-care (01) ==
PROVIDERS: Emergency Provider Emergency Medicine; PCP Family Medicine
DX: R51.9 Headache, unspecified (principal); Z98.1 Arthrodesis status; Z90.710 Acquired absence of both cervix and uterus; Z98.890 Other specified postprocedural states
CPT/HCPCS: 36415; 70450; 80053; 85007; 85027; 96361; 96374; 96375; 99285; J1885; J2405; Q0169

== ENCOUNTER 2024-06-22 11:19 | Outpatient (OUT) | payer MEDICARE, SELFPAY ==
[2024-06-22 12:16] LABS: Thyroid Stimulating Hormone 2.632 uIU/mL (0.358-3.740)
[2024-06-23 04:07] LABS: Vitamin B12 721 pg/mL (232-1245)
== END 2024-06-22 11:20 | disposition home or self-care (01) ==
LOC: LAB 11:20
PROVIDERS: PCP Family Medicine; Visit Provider Psychiatry & Neurology Neurology
DX: Z79.899 Other long term (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 therapy (principal); R41.89 Other symptoms and signs involving cognitive functions and awareness
CPT/HCPCS: 36415; 80048; 82607; 84443

== ENCOUNTER 2024-06-22 11:22 | Outpatient (OUT) | payer MEDICARE, SELFPAY ==
[2024-06-22 11:55] LABS: Anion Gap 10.8; BUN Creatinine Ratio 20.6; Calcium 9.2 mg/dL (8.5-10.1); Chloride 105 mmol/L (98-107); Estimated GFR (African America 45 (>=60 mL/min/1.73m^2); Estimated GFR (Non-African Ame 37 (>=60 mL/min/1.73m^2); Glucose 125 mg/dL (74-106); Potassium 4.8 mmol/L (3.5-5.1); Sodium 141 mmol/L (136-145)
== END 2024-06-22 11:23 | disposition home or self-care (01) ==
LOC: LAB 11:23
PROVIDERS: PCP Family Medicine; Visit Provider Family Medicine
DX: Z79.899 Other long term (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 therapy (principal)
CPT/HCPCS: 36415; 80048

== ENCOUNTER 2024-06-23 11:07 | Outpatient (OUT) | payer MEDICARE, SELFPAY ==
--- NOTE | 2024-06-23 12:06 | P.CN_ITS ---
Consult Note: HPI Data of Consult Patient: known to practice within the last 3 years Consult date: 06/07/24 Requesting Physician: Helen De La Paz NP Primary Care Provider: AYANNA VICENTE Consult Narrative Reason for consult: low back, left leg pain Narrative: 83yof who presents for assessment. worsening pain through the low back and left lower extremity. imaging reviewed, which shows multilevel stenosis, particularly at l3-4 and l5-s1. has completed >6 weeks of provider directed home exercise program, with no benefit. uses pain meds as needed. denies adverse med side effects. recent left L3/4 L4/5 TFESI providing mild relief at this time, did have a severe migraine the day following which resulted in a trip to the ER cc:: CC: Helen De La Paz NP Review of Systems ROS Status of ROS 10 or more systems reviewed and unremark able except as noted in history and below [facility] Medical History (Updated 06/15/24 @ 21:39 by Tri Ag MD) Osteoarthritis ?M19.90 - Unspecified osteoarthritis, unspecified site (ICD-10) Chronic lymphocytic leukemia ?C91.10 - Chronic lymphocytic leukemia of B-cell type not having achieved remission (ICD-10) Diabetes ?E11.9 - Type 2 diabetes mellitus without complications (ICD-10) Former smoker ?Z87.891 - Personal history of nicotine dependence (ICD-10) High cholesterol ?E78.00 - Pure hypercholesterolemia, unspecified (ICD-10) Hypertension ?I10 - Essential (primary) hypertension (ICD-10) Surgical History S/P lumbar fusion ?Z98.1 - Arthrodesis status (ICD-10) S/P hernia surgery ?Z98.890 - Other specified postprocedural states (ICD-10) ?Z87.19 - Personal history of other diseases of the digestive system (ICD-10) H/O: hysterectomy ?Z90.710 - Acquired absence of both cervix and uterus (ICD-10) Social History Smoking status: Never smoker Little interest or pleasure in doing things: not at all Feeling down, depressed, or hopeless: not at all Meds Home Medications and Allergies Home Medications ?Medication ?Instructions ?Recorded ?Confirmed ?Type B-complex with vitamin C 1 tab PO DAILY 08/25/23 06/14/24 History aspirin 81 mg tablet,delayed 81 mg PO DAILY 08/25/23 06/14/24 History release atorvastatin 20 mg tablet (Lipitor) 20 mg PO DAILY 08/25/23 06/14/24 History cholecalciferol (vitamin D3) 125 125 mcg PO DAILY 08/25/23 06/14/24 History mcg (5,000 unit) capsule ezetimibe 10 mg tablet (Zetia) 10 mg PO DAILY 08/25/23 06/14/24 History levothyroxine 100 mcg tablet 100 mcg PO DAILY 08/25/23 06/14/24 History (Synthroid) lisinopril 10 mg tablet 10 mg PO DAILY 08/25/23 06/14/24 History metformin 1,000 mg tablet 1,000 mg PO BID 08/25/23 06/14/24 History multivitamin 1 tab PO DAILY 08/25/23 06/14/24 History oxybutynin chloride 5 mg tablet 5 mg PO DAILY 08/25/23 06/14/24 History oxycodone-acetaminophen 5 mg-325 1 tab PO BID PRN pain 08/25/23 06/14/24 History mg tablet pregabalin 225 mg capsule (Lyrica) 225 mg PO BID 08/25/23 06/14/24 History propranolol 60 mg tablet 60 mg PO DAILY 08/25/23 06/14/24 History triamterene 37.5 1 tab PO DAILY 08/25/23 06/14/24 History mg-hydrochlorothiazide 25 mg tablet (Maxzide-25mg) venlafaxine 75 mg capsule,extended 75 mg PO DAILY 08/25/23 06/14/24 History release 24 hr (Effexor XR) zolpidem 5 mg tablet 5 mg PO DAILY 08/25/23 06/14/24 History Allergies Allergy/AdvReac Type Severity Reaction Status Date / Time cefpodoxime (From Vantin) Allergy Unknown Unknown Verified 06/14/24 08:30 Exam Narrative Exam Narrative: Psych-alert and oriented x 3. Attentive and appropriate, constitutionally normal, displays normal mood and affect per situation. There are no obvious deficits in memory, reasoning, or intellect.? Skin-no obvious rashes, bruising, erythema noted to the patient's area of pain.? Extremities- extremities are warm with minimal edema and palpable pulses. Lumbar-tenderness to palpation noted in the lumbar spine and paraspinal musculature. Pain is elicited with flexion, extension, and lateral rotation of the lumbar spine. Range of motion is diminished with these motions. Facet loading maneuvers are positive. Strength-noted to be unremarkable Sensory-no notable sensory deficits in the bilateral lower extremities to touch or pinprick in all dermatomal distributions Sacroiliac - tender to palpation over left PSIS. Positive Buster's on the left. Positive thigh thrust on the left. Coordination remains intact.? Gait remains non-antalgic. Assessment and Plan Assessment and Plan (1) Lumbar stenosis with neurogenic claudication: (2) Lumbar postlaminectomy syndrome: (3) Sacroiliac joint dysfunction of left side: Plan proceed with left SIJ injection when completed with antibiotics for UTI continue hep as tolerated f/u after injection
== END 2024-06-23 11:08 | disposition home or self-care (01) ==
LOC: PM 11:07
PROVIDERS: PCP Family Medicine; Visit Provider Nurse Practitioner
DX: M48.062 Spinal stenosis, lumbar region with neurogenic claudication (principal); M96.1 Postlaminectomy syndrome, not elsewhere classified; M53.3 Sacrococcygeal disorders, not elsewhere classified
CPT/HCPCS: G0463

== ENCOUNTER 2024-07-12 07:51 | Day surgery (SDC) | payer MEDICARE, SELFPAY ==
[2024-07-12 08:09] VITALS: BP 116/78; PULSE 70; TEMP 36.2; O2SAT 94
[2024-07-12 08:16] LABS: Glucometer 129 mg/dL (74-106)
[2024-07-12 09:27] VITALS: BP 105/59; BP 119/68; PULSE 70; PULSE 75; O2SAT 90; O2SAT 92
--- NOTE | 2024-07-12 09:28 | W.PM.PROCNOT ---
Date of procedure: 07/12/24 Pre-op diagnosis: Pain due to left sacroiliitis Post-op diagnosis: same as pre-op Procedure: Procedure: Left sacroiliac joint injection Medications: Bupivacaine 0.25% 3cc, depomedrol 40mg After informed consent was obtained, the patient was brought to the medical procedure unit and placed in the prone position, when a timeout was completed verifying correct patient, procedure, site, positioning, implant, and/or special equipment.? The skin overlying the area was prepped and draped in standard sterile fashion using alcohol.? A 25-gauge needle was inserted towards the left sacroiliac joint under direct fluoroscopic imaging.? Needle tip was advanced until the joint was encountered.? We instilled a total of 2 mL of solution.? Postoperatively needles were removed.? The patient tolerated the procedure well without complication.? The patient reported reduction in pain symptoms postoperatively. Anesthesia: Local Surgeon: Som Azul Pathology: none sent Condition: stable Disposition: no change
[2024-07-12] MEDS: BUPIVACAINE HCL 0.25% PF 25 MG/10 ML VIAL 2 ML INJ (09:29)
[2024-07-12] MEDS: IOHEXOL 240 MG/ML - 10 ML VIAL 12 MG INJ (09:29)
[2024-07-12] MEDS: LIDOCAINE HCL 2% 400 MG/20 ML MDV INJ (09:30)
[2024-07-12] MEDS: METHYLPREDNISOLONE ACETATE 40 MG/ML VIAL 20 MG INJ (09:30)
== END 2024-07-12 09:31 | disposition home or self-care (01) ==
LOC: SURGOUT 07:52
PROVIDERS: PCP Family Medicine; Visit Provider Anesthesiology
DX: M46.1 Sacroiliitis, not elsewhere classified (principal); E11.9 Type 2 diabetes mellitus without complications; Z79.84 Long term (current) use of oral hypoglycemic drugs
CPT/HCPCS: 27096; 36415; 82948; J0665; J1010; Q9966

== ENCOUNTER 2024-07-22 10:44 | Outpatient (OUT) | payer MEDICARE, SELFPAY ==
--- NOTE | 2024-07-22 11:07 | PM.CN ---
Consult Note: HPI Data of Consult Patient: known to practice within the last 3 years Consult date: 06/07/24 Requesting Physician: Helen De La Paz NP Primary Care Provider: AYANNA VICENTE Consult Narrative Reason for consult: low back, right leg, right shoulder pain Narrative: 83yof who presents for assessment. worsening pain through the low back and left lower extremity. imaging reviewed, which shows multilevel stenosis, particularly at l3-4 and l5-s1. has completed >6 weeks of provider directed home exercise program, with no benefit. uses pain meds as needed. denies adverse med side effects. recent left L3/4 L4/5 TFESI and left SIJ injection providing >80% improvement ongoing. Patient noticing increased pain of chronic right shoulder pain and right hip pain. cc:: CC: Helen De La Paz NP Review of Systems ROS Status of ROS 10 or more systems reviewed and unremarkable except as noted in history and below Musculoskeletal Reports: back pain, extremity pain and joint pain PFSH PFSH Medical History (Updated 07/22/24 @ 11:09 by Helen De La Paz NP) Osteoarthritis ?M19.90 - Unspecified osteoarthritis, unspecified site (ICD-10) Chronic lymphocytic leukemia ?C91.10 - Chronic lymphocytic leukemia of B-cell type not having achieved remission (ICD-10) Diabetes ?E11.9 - Type 2 diabetes mellitus without complications (ICD-10) Former smoker ?Z87.891 - Personal history of nicotine dependence (ICD-10) High cholesterol ?E78.00 - Pure hypercholesterolemia, unspecified (ICD-10) Hypertension ?I10 - Essential (primary) hypertension (ICD-10) Surgical History S/P lumbar fusion ?Z98.1 - Arthrodesis status (ICD-10) S/P hernia surgery ?Z98.890 - Other specified postprocedural states (ICD-10) ?Z87.19 - Personal history of other diseases of the digestive system (ICD-10) H/O: hysterectomy ?Z90.710 - Acquired absence of both cervix and uterus (ICD-10) Social History Smoking status: Never smoker Little interest or pleasure in doing things: not at all Feeling down, depressed, or hopeless: not at all Meds Home Medications and Allergies Home Medications ?Medication ?Instructions ?Recorded ?Confirmed ?Type B-complex with vitamin C 1 tab PO DAILY 08/25/23 07/12/24 History aspirin 81 mg tablet,delayed 81 mg PO DAILY 08/25/23 07/12/24 History release atorvastatin 20 mg tablet (Lipitor) 20 mg PO DAILY 08/25/23 07/12/24 History cholecalciferol (vitamin D3) 125 125 mcg PO DAILY 08/25/23 07/12/24 History mcg (5,000 unit) capsule ezetimibe 10 mg tablet (Zetia) 10 mg PO DAILY 08/25/23 07/12/24 History levothyroxine 100 mcg tablet 100 mcg PO DAILY 08/25/23 07/12/24 History (Synthroid) lisinopril 10 mg tablet 10 mg PO DAILY 08/25/23 07/12/24 History metformin 1,000 mg tablet 1,000 mg PO BID 08/25/23 07/12/24 History multivitamin 1 tab PO DAILY 08/25/23 07/12/24 History oxybutynin chloride 5 mg tablet 5 mg PO DAILY 08/25/23 07/12/24 History oxycodone-acetaminophen 5 mg-325 1 tab PO BID PRN pain 08/25/23 07/12/24 History mg tablet pregabalin 225 mg capsule (Lyrica) 225 mg PO BID 08/25/23 07/12/24 History propranolol 60 mg tablet 60 mg PO DAILY 08/25/23 07/12/24 History triamterene 37.5 1 tab PO DAILY 08/25/23 07/12/24 History mg-hydrochlorothiazide 25 mg tablet (Maxzide-25mg) venlafaxine 75 mg capsule,extended 75 mg PO DAILY 08/25/23 07/12/24 History release 24 hr (Effexor XR) zolpidem 5 mg tablet 5 mg PO DAILY 08/25/23 07/12/24 History Allergies Allergy/AdvReac Type Severity Reaction Status Date / Time cefpodoxime (From Vantin) Allergy Unknown Unknown Verified 07/12/24 08:15 Exam Constitutional Documenting provider has reviewed patient's vital signs: yes Common normals: no apparent distress, oriented x3, healthy appearing, alert and well nourished General appearance: cooperative HENMT Common normals: normocephalic, hearing grossly normal bilaterally and moist oral mucous membranes Head and scalp: normocephalic Eye Common normals: PERRL Pupil: PERRL Neck & C-Spine Common normals: full ROM General: normal visual inspection Chest Common normals: inspection of chest normal Respiratory Common normals: normal respiratory effort, no retractions and no use of accessory muscles Back & Pelvis Lumbar spine/lower back: straight leg raise negative bilaterally; ROM not limited and no pain with ROM Sacroiliac joints: SI joints normal Other: moderate tenderness over right GTB Extremity Right upper extremity: shoulder joint Other: limited ROM with overhead extension, strength 4/5 positive empty can, posterior liftoff and apleys scratch test Neuro Common normals: oriented x3, CN's II-XII intact bilaterally, moves all extremities, no focal motor deficits, no sensory deficits noted and deep tendon reflexes 2+ bilaterally Sensorium/orientation: alert Motor exam: strength 5/5 throughout and no movement abnormalities noted Psych Common normals: mental status grossly normal, thought process normal, cooperative, affect normal, speech normal and activity/motor behavior normal Speech: normal speech Thought process: normal thought process Assessment and Plan Assessment and Plan (1) Sacroiliac joint dysfunction of left side: (2) Greater trochanteric bursitis of right hip: (3) Chronic right shoulder pain: (4) Lumbar stenosis with neurogenic claudication: (5) Lumbar postlaminectomy syndrome: Plan update right shoulder xray right GTB injection with Dr Azul continue HEP as tolerated f/u after xray complete
== END 2024-07-22 10:45 | disposition home or self-care (01) ==
LOC: PM 10:44
PROVIDERS: PCP Family Medicine; Visit Provider Nurse Practitioner
DX: M25.511 Pain in right shoulder (principal); G89.29 Other chronic pain; M48.062 Spinal stenosis, lumbar region with neurogenic claudication; M96.1 Postlaminectomy syndrome, not elsewhere classified; M70.61 Trochanteric bursitis, right hip; M53.3 Sacrococcygeal disorders, not elsewhere classified
CPT/HCPCS: 73030; G0463

== ENCOUNTER 2024-07-22 11:27 | Outpatient (OUT) | payer MEDICARE, SELFPAY ==
--- NOTE | 2024-07-22 11:55 | XR_ITS ---
The [address] [address] Patient Name: MIGUEL A APARICIO MRN: [id number] date: 1940 Sex: F Assigned Patient Location: [facility] Current Patient Location: RAD Accession/Order Number: [id number] Exam Date: 07/22/2024 11:48 Report Date: 07/22/2024 13:01 At the request of: BENEDICTO WELCH Procedure: XR shoulder RT min 2V PROCEDURE: XR shoulder RT min 2V DATE: 07/22/2024 11:48 AM EST COMPARISONS: Chest x-ray from 03/15/2020 CLINICAL INDICATION: Shoulder Pain FINDINGS: There is no evidence of fractures or other acute osseous abnormalities. The humeral head is subluxed caudally slightly with respect to the glenoid. There is at least moderate inferior glenohumeral degenerative change with caudal spurring. There is some spurring off the inferior acromion. There is some ossification where the rotator cuff tendon attaches to the greater tuberosity. XR/XR shoulder RT min 2V IMPRESSION: There is evidence most consistent with chronic deformity of the right shoulder including acromioclavicular degenerative change and slight subluxation at this joint space. Electronically authenticated by: VICTORIANO PATTERSON Date: 07/22/2024 13:01
== END 2024-07-22 11:28 | disposition home or self-care (01) ==
LOC: RAD 11:28
PROVIDERS: PCP Family Medicine; Visit Provider Nurse Practitioner
DX: M25.511 Pain in right shoulder (principal)
CPT/HCPCS: 73030

== ENCOUNTER 2024-07-26 11:35 | Outpatient (OUT) | payer MEDICARE, SELFPAY ==
--- NOTE | 2024-07-26 12:11 | P.CN_ITS ---
Consult Note: HPI Data of Consult Patient: known to practice within the last 3 years Consult date: 07/26/24 Requesting Physician: Som Azul MD Primary Care Provider: AYANNA VICENTE Consult Narrative Reason for consult: right shoulder, right hip pain Narrative: 84yof who presents for assessment. worsening pain in right shoulder, right hip and leg. tender to palpation over right greater trochanter, would like to proceed with right GTB injection. in terms of right shoulder pain, imaging shows moderate degenerative changes throughout right shoulder. continues in a series of provider directed home exercises >6 weeks, without lasting benefit. uses percocet as needed. denies adverse med side effects. cc:: CC: Som Azul MD Review of Systems ROS Status of ROS 10 or more systems reviewed and unremark able except as noted in history and below PFSH PFS Medical History Osteoarthritis ?M19.90 - Unspecified osteoarthritis, unspecified site (ICD-10) Chronic lymphocytic leukemia ?C91.10 - Chronic lymphocytic leukemia of B-cell type not having achieved remission (ICD-10) Diabetes ?E11.9 - Type 2 diabetes mellitus without complications (ICD-10) Former smoker ?Z87.891 - Personal history of nicotine dependence (ICD-10) High cholesterol ?E78.00 - Pure hypercholesterolemia, unspecified (ICD-10) Hypertension ?I10 - Essential (primary) hypertension (ICD-10) Surgical History S/P lumbar fusion ?Z98.1 - Arthrodesis status (ICD-10) S/P hernia surgery ?Z98.890 - Other specified postprocedural states (ICD-10) ?Z87.19 - Personal history of other diseases of the digestive system (ICD-10) H/O: hysterectomy ?Z90.710 - Acquired absence of both cervix and uterus (ICD-10) Social History Smoking status: Never smoker Little interest or pleasure in doing things: not at all Feeling down, depressed, or hopeless: not at all Meds Home Medications and Allergies Home Medications ?Medication ?Instructions ?Recorded ?Confirmed ?Type B-complex with vitamin C 1 tab PO DAILY 08/25/23 07/12/24 History aspirin 81 mg tablet,delayed 81 mg PO DAILY 08/25/23 07/12/24 History release atorvastatin 20 mg tablet (Lipitor) 20 mg PO DAILY 08/25/23 07/12/24 History cholecalciferol (vitamin D3) 125 125 mcg PO DAILY 08/25/23 07/12/24 History mcg (5,000 unit) capsule ezetimibe 10 mg tablet (Zetia) 10 mg PO DAILY 08/25/23 07/12/24 History levothyroxine 100 mcg tablet 100 mcg PO DAILY 08/25/23 07/12/24 History (Synthroid) lisinopril 10 mg tablet 10 mg PO DAILY 08/25/23 07/12/24 History metformin 1,000 mg tablet 1,000 mg PO BID 08/25/23 07/12/24 History multivitamin 1 tab PO DAILY 08/25/23 07/12/24 History oxybutynin chloride 5 mg tablet 5 mg PO DAILY 08/25/23 07/12/24 History oxycodone-acetaminophen 5 mg-325 1 tab PO BID PRN pain 08/25/23 07/12/24 History mg tablet pregabalin 225 mg capsule (Lyrica) 225 mg PO BID 08/25/23 07/12/24 History propranolol 60 mg tablet 60 mg PO DAILY 08/25/23 07/12/24 History triamterene 37.5 1 tab PO DAILY 08/25/23 07/12/24 History mg-hydrochlorothiazide 25 mg tablet (Maxzide-25mg) venlafaxine 75 mg capsule,extended 75 mg PO DAILY 08/25/23 07/12/24 History release 24 hr (Effexor XR) zolpidem 5 mg tablet 5 mg PO DAILY 08/25/23 07/12/24 History Allergies Allergy/AdvReac Type Severity Reaction Status Date / Time cefpodoxime (From Vantin) Allergy Unknown Unknown Verified 07/12/24 08:15 Exam Narrative Exam Narrative: Psych-alert and oriented x 3.? Attentive and appropriate, constitutionally normal, displays normal mood and affect per situation.? There are no obvious deficits in memory, reasoning, or intellect.? Skin-no obvious rashes, bruising, erythema noted to the patient's area of pain. Extremities- extremities are warm with minimal edema and palpable pulses. Hip-tenderness to palpation is noted over the right hip joint.? Pain is elicited with internal and external rotation of the hip.? Hip provocative maneuvers are positive and consistent with the patient's normal pain.? Shoulder - tender to palpation over right shoulder. Pain elicited with abduction, external rotation of right shoulder. Coordination remains intact.? Gait remains antalgic. Assessment and Plan Assessment and Plan (1) Greater trochanteric bursitis of right hip: (2) Chronic right shoulder pain: Plan 84yof who presents for assessment. failed conservative measures, as noted. in terms of right hip pain, will proceed with previously discussed right greater trochanteric bursa injection. she is in agreement. in terms of right shoulder pain, discussed imaging findings. will have her return next month for right shoulder injection. she is in agreement. meds reviewed, no changes. follow up in 1 month. Procedure: Right greater trochanteric bursa injection Medications: Bupivacaine 0.25% 4cc, depomedrol 40mg I explained the details of the procedure to the patient including the risks, benefits and alternatives. We had an informed discussion and the patient verbalized understanding and signed the consent form. All questions were answered appropriately.? A time out was performed.? The skin overlying the right lateral hip was prepped with alcohol x3. A sterile syringe containing the above medication was attached to a 25 gauge, 3.5 inch needle under strict aseptic technique. The greater trochanter and point of tenderness was palpated. At this point, the needle was then advanced through the subcutaneous tissue down to os. The needle was withdrawn slightly and the contents of the syringe were gently injected without any resistance. The needle was removed and pressure was applied to the injection site to decrease the incidence of ecchymosis and hematoma formation.? A sterile bandage was applied. Post procedural instructions were given to the patient.
== END 2024-07-26 11:36 | disposition home or self-care (01) ==
LOC: PM 11:36
PROVIDERS: PCP Family Medicine; Visit Provider Anesthesiology
DX: M70.61 Trochanteric bursitis, right hip (principal); M25.511 Pain in right shoulder
CPT/HCPCS: 20610; J0665; J3301

== ENCOUNTER 2024-08-16 12:29 | Outpatient (OUT) | payer MEDICARE, SELFPAY ==
--- NOTE | 2024-08-16 13:11 | P.CN_ITS ---
Consult Note: HPI Data of Consult Patient: known to practice within the last 3 years Consult date: 08/16/24 Requesting Physician: Som Azul MD Primary Care Provider: AYANNA VICENTE Consult Narrative Reason for consult: low back, left hip and leg pain, right shoulder pain Narrative: 84yof who presents for assessment. notes increasing pain in left low back and hip and leg after recent fall. previously was doing well after left l4-5, l5-s1 tfesi and left sij injection. also has increasing right shoulder pain. continues in a series of provider directed home exercises >6 weeks, without lasting benefit. uses pain meds as needed. denies adverse med side effects. cc:: CC: Som Azul MD Review of Systems ROS Status of ROS 10 or more systems reviewed and unremark able except as noted in history and below PFSH PFS Medical History Osteoarthritis ?M19.90 - Unspecified osteoarthritis, unspecified site (ICD-10) Chronic lymphocytic leukemia ?C91.10 - Chronic lymphocytic leukemia of B-cell type not having achieved remission (ICD-10) Diabetes ?E11.9 - Type 2 diabetes mellitus without complications (ICD-10) Former smoker ?Z87.891 - Personal history of nicotine dependence (ICD-10) High cholesterol ?E78.00 - Pure hypercholesterolemia, unspecified (ICD-10) Hypertension ?I10 - Essential (primary) hypertension (ICD-10) Surgical History S/P lumbar fusion ?Z98.1 - Arthrodesis status (ICD-10) S/P hernia surgery ?Z98.890 - Other specified postprocedural states (ICD-10) ?Z87.19 - Personal history of other diseases of the digestive system (ICD-10) H/O: hysterectomy ?Z90.710 - Acquired absence of both cervix and uterus (ICD-10) Social History Smoking status: Never smoker Little interest or pleasure in doing things: not at all Feeling down, depressed, or hopeless: not at all Meds Home Medications and Allergies Home Medications ?Medication ?Instructions ?Recorded ?Confirmed ?Type B-complex with vitamin C 1 tab PO DAILY 08/25/23 07/12/24 History aspirin 81 mg tablet,delayed 81 mg PO DAILY 08/25/23 07/12/24 History release atorvastatin 20 mg tablet (Lipitor) 20 mg PO DAILY 08/25/23 07/12/24 History cholecalciferol (vitamin D3) 125 125 mcg PO DAILY 08/25/23 07/12/24 History mcg (5,000 unit) capsule ezetimibe 10 mg tablet (Zetia) 10 mg PO DAILY 08/25/23 07/12/24 History levothyroxine 100 mcg tablet 100 mcg PO DAILY 08/25/23 07/12/24 History (Synthroid) lisinopril 10 mg tablet 10 mg PO DAILY 08/25/23 07/12/24 History metformin 1,000 mg tablet 1,000 mg PO BID 08/25/23 07/12/24 History multivitamin 1 tab PO DAILY 08/25/23 07/12/24 History oxybutynin chloride 5 mg tablet 5 mg PO DAILY 08/25/23 07/12/24 History oxycodone-acetaminophen 5 mg-325 1 tab PO BID PRN pain 08/25/23 07/12/24 History mg tablet pregabalin 225 mg capsule (Lyrica) 225 mg PO BID 08/25/23 07/12/24 History propranolol 60 mg tablet 60 mg PO DAILY 08/25/23 07/12/24 History triamterene 37.5 1 tab PO DAILY 08/25/23 07/12/24 History mg-hydrochlorothiazide 25 mg tablet (Maxzide-25mg) venlafaxine 75 mg capsule,extended 75 mg PO DAILY 08/25/23 07/12/24 History release 24 hr (Effexor XR) zolpidem 5 mg tablet 5 mg PO DAILY 08/25/23 07/12/24 History Allergies Allergy/AdvReac Type Severity Reaction Status Date / Time cefpodoxime (From Vantin) Allergy Unknown Unknown Verified 07/12/24 08:15 Exam Narrative Exam Narrative: Psych-alert and oriented x 3. Attentive and appropriate, constitutionally normal, displays normal mood and affect per situation. There are no obvious deficits in memory, reasoning, or intellect.? Skin-no obvious rashes, bruising, erythema noted to the patient's area of pain.? Extremities- extremities are warm with minimal edema and palpable pulses. Shoulder - tender to palpation over right shoulder. Pain with external rotation, abduction of right shoulder. Lumbar-tenderness to palpation noted in the lumbar spine and paraspinal musculature. Pain is not elicited with flexion, extension, and lateral rotation of the lumbar spine. Range of motion is not diminished with these motions. Facet loading maneuvers are negative.? Strength-noted to be unremarkable with the exception of decreased strength rated at 4 out of 5 in left quadriceps femoris, anterior tibialis. Sensory-no notable sensory deficits in the bilateral lower extremities to touch or pinprick in all dermatomal distributions with the exception to decreased sensation to the left L3, 4, 5 dermatomal distribution Sacroiliac - tender to palpation over left PSIS. Positive Buster's on the left. Positive thigh thrust on left. Coordination remains intact.? Gait remains non-antalgic. Assessment and Plan Assessment and Plan (1) Lumbar stenosis with neurogenic claudication: (2) Lumbar postlaminectomy syndrome: (3) Sacroiliac joint dysfunction of left side: (4) Chronic right shoulder pain: Plan 84yof who presents for assessment. failed conservative measures, as noted. imaging reviewed, which is significant for osteoarthritis of right shoulder. also multilevel stenosis noted on lumbar imaging, particularly at l4-5 and l5- s1. given symptoms and imaging, prudent to proceed with right shoulder injection. she is in agreement. also discussed that it would be prudent to repeat left l4-5, l5-s1 tfesi under fluroscopic guidance, as well as left sij injection under fluoroscopic guidance, at some point in future, given relief with previous. she expressed understanding. meds reviewed, no changes. follow up after procedure. Procedure: Right shoulder injection Medications: Bupivacaine 0.25% 4cc, depomedrol 40mg I explained the details of the procedure to the patient including the risks, benefits, and alternatives.? We had an informed discussion.? The patient verbalized understanding and signed the consent form.? All questions were answered appropriately.? A time-out was performed.? After obtaining a comfortable seated position, the skin overlying the right shoulder was prepped with alcohol 3 times.? The sulcus between the head of the humerus and the acromion was identified.? The needle was inserted in a sterile manner 2 cm inferior and medial to the posterolateral corner of the acromion and was directed anteriorly toward the coracoid process. The contents of the syringe were gently injected without any resistance into the joint space after negative aspiration for blood or other bodily fluids.? The needle was removed and pressure was applied at the injection site to decrease the incidence of ecchymosis and hematoma formation.? A sterile bandage was applied.
== END 2024-08-16 12:30 | disposition home or self-care (01) ==
LOC: PM 12:30
PROVIDERS: PCP Family Medicine; Visit Provider Anesthesiology
DX: M48.062 Spinal stenosis, lumbar region with neurogenic claudication (principal); M96.1 Postlaminectomy syndrome, not elsewhere classified; M53.3 Sacrococcygeal disorders, not elsewhere classified; M25.511 Pain in right shoulder
CPT/HCPCS: 20610; J0665; J1010

== ENCOUNTER 2024-09-03 11:11 | Outpatient (OUT) | payer MEDICARE, SELFPAY ==
[2024-09-03 12:50] LABS: Bilirubin Urine NEGATIVE (NEGATIVE); Blood Urine NEGATIVE (NEGATIVE); Clarity Urine CLEAR (CLEAR); Glucose Urine UA NEGATIVE (NEGATIVE); Ketones Urine TRACE mg/dL (NEGATIVE); Leukocyte Esterase Urine NEGATIVE (NEGATIVE); Nitrite Urine NEGATIVE (NEGATIVE); Protein Urine TRACE mg/dL (NEG/TRACE); Specific Gravity Urine 1.025 (1.005-1.025); Urobilinogen Urine 0.2 EU/dL (0.2-1.0); pH Urine 5.5 (5.0-9.0)
[2024-09-03 12:51] LABS: Color Urine LT YELLOW (YELLOW)
== END 2024-09-03 11:12 | disposition home or self-care (01) ==
LOC: LAB 11:13
PROVIDERS: PCP Family Medicine; Visit Provider Family Medicine
DX: N30.90 Cystitis, unspecified without hematuria (principal)
CPT/HCPCS: 81003; 87086

== ENCOUNTER 2024-10-11 11:14 | Day surgery (SDC) | payer MEDICARE, SELFPAY ==
[2024-10-11 11:21] VITALS: BP 120/75; PULSE 69; TEMP 36.3; O2SAT 95
[2024-10-11 11:31] LABS: Glucometer 132 mg/dL (74-106)
[2024-10-11 11:50] VITALS: BP 129/61; PULSE 72; O2SAT 90
[2024-10-11 11:52] VITALS: BP 104/69; PULSE 67; O2SAT 91
[2024-10-11] MEDS: BUPIVACAINE HCL 0.25% PF 25 MG/10 ML VIAL INJ (11:53)
[2024-10-11] MEDS: 0.9 % SODIUM CHLORIDE 10 ML SYRINGE - SALINE FLUSH INJ (11:53)
[2024-10-11] MEDS: IOHEXOL 240 MG/ML - 10 ML VIAL 24 MG INJ (11:54)
[2024-10-11] MEDS: LIDOCAINE HCL 2% 400 MG/20 ML MDV 3 ML INJ (11:54)
[2024-10-11] MEDS: METHYLPREDNISOLONE ACETATE 80 MG/ML VIAL INJ (11:54)
--- NOTE | 2024-10-11 11:54 | P.ON_ITS ---
Date of procedure: 10/11/24 Pre-op diagnosis: Pain due to lumbar stenosis with neurogenic claudication Post-op diagnosis: same as pre-op Procedure: Procedure: Left L4-5, L5-S1 transforaminal epidural steroid injection Medications: Bupivacaine 0.25% 2cc, lidocaine 2% 1cc, depomedrol 80mg The patient was seen and examined in the preoperative holding area.? Informed consent was obtained and placed on the chart.? Patient was brought to the medical procedure unit and placed in the prone position where a timeout was completed verifying the correct patient, procedure site, position, and planned special equipment using sterile aseptic technique.? Under direct fluoroscopic visualization a 25-gauge Quincke tipped spinal needle was advanced to the designated neural foramen where contrast dye was injected to show adequate spread.? The needle was inserted at level left L4-5. There was no evidence of vascular or adverse uptake.? Epidural spread was appreciated.? The above- mentioned injectate was then placed in a 1.5 mL aliquot preceded by negative aspiration.? The needle was removed. The needle was inserted and the procedure repeated at level left L5-S1.? The surgery site was covered.? Patient was taken to the postprocedural recovery area and monitored for an appropriate length of time before found suitable for discharge in the accompaniment of a responsible adult. Anesthesia: Local Surgeon: Som Azul Pathology: none sent Condition: stable Disposition: no change
== END 2024-10-11 11:59 | disposition home or self-care (01) ==
LOC: SURGOUT 11:15
PROVIDERS: PCP Family Medicine; Visit Provider Anesthesiology
DX: M48.062 Spinal stenosis, lumbar region with neurogenic claudication (principal); E11.8 Type 2 diabetes mellitus with unspecified complications
CPT/HCPCS: 36415; 64483; 64484; 82948; J0665; J1010; Q9966

== ENCOUNTER 2024-10-21 10:24 | Outpatient (OUT) | payer MEDICARE, SELFPAY ==
--- NOTE | 2024-10-21 10:53 | PM.CN ---
Consult Note: HPI Data of Consult Patient: known to practice within the last 3 years Requesting Physician: Helen De La Paz NP Primary Care Provider: AYANNA VICENTE Consult Narrative Reason for consult: f/u Narrative: Kathy Washburn an 84 year old female with longstanding low back and SIJ pain secondary to failed back syndrome, lumbar ddd, lumbar spondylosis, lumbar stenosis, and sacroiliitis presents for evaluation. pt has failed to benefit from > 6 weeks of provider guided HEP, PT, heat, ice, tylenol, and NSAIDs. pain today 3/10 stabbing, tender, burn to bilateral low back and right hip. pain increasing to 10/10 with standing, walking, housework, ADLs, activity. Pain improved with sitting, lying, and sleep. pt reports left L4/5 L5/S1 TFESI providing 90% improvement in NC symptoms. no falls since last visit however she feels unsteady. cc:: CC: Helen De La Paz NP Review of Systems ROS Status of ROS 10 or more systems reviewed and unremarkable except as noted in history and below Musculoskeletal Reports: back pain; Denies: joint pain PFSH PFSH Medical History Osteoarthritis ?M19.90 - Unspecified osteoarthritis, unspecified site (ICD-10) Chronic lymphocytic leukemia ?C91.10 - Chronic lymphocytic leukemia of B-cell type not having achieved remission (ICD-10) Diabetes ?E11.9 - Type 2 diabetes mellitus without complications (ICD-10) Former smoker ?Z87.891 - Personal history of nicotine dependence (ICD-10) High cholesterol ?E78.00 - Pure hypercholesterolemia, unspecified (ICD-10) Hypertension ?I10 - Essential (primary) hypertension (ICD-10) Surgical History S/P lumbar fusion ?Z98.1 - Arthrodesis status (ICD-10) S/P hernia surgery ?Z98.890 - Other specified postprocedural states (ICD-10) ?Z87.19 - Personal history of other diseases of the digestive system (ICD-10) H/O: hysterectomy ?Z90.710 - Acquired absence of both cervix and uterus (ICD-10) Social History Smoking status: Never smoker Little interest or pleasure in doing things: not at all Feeling down, depressed, or hopeless: not at all Meds Home Medications and Allergies Home Medications ?Medication ?Instructions ?Recorded ?Confirmed ?Type B-complex with vitamin C 1 tab PO DAILY 08/25/23 10/11/24 History aspirin 81 mg tablet,delayed 81 mg PO DAILY 08/25/23 10/11/24 History release atorvastatin 20 mg tablet (Lipitor) 20 mg PO DAILY 08/25/23 10/11/24 History cholecalciferol (vitamin D3) 125 125 mcg PO DAILY 08/25/23 10/11/24 History mcg (5,000 unit) capsule ezetimibe 10 mg tablet (Zetia) 10 mg PO DAILY 08/25/23 10/11/24 History levothyroxine 100 mcg tablet 100 mcg PO DAILY 08/25/23 10/11/24 History (Synthroid) lisinopril 10 mg tablet 10 mg PO DAILY 08/25/23 10/11/24 History metformin 1,000 mg tablet 1,000 mg PO BID 08/25/23 10/11/24 History multivitamin 1 tab PO DAILY 08/25/23 10/11/24 History oxybutynin chloride 5 mg tablet 5 mg PO DAILY 08/25/23 10/11/24 History oxycodone-acetaminophen 5 mg-325 1 tab PO BID PRN pain 08/25/23 10/11/24 History mg tablet pregabalin 225 mg capsule (Lyrica) 225 mg PO BID 08/25/23 10/11/24 History propranolol 60 mg tablet 60 mg PO DAILY 08/25/23 10/11/24 History triamterene 37.5 1 tab PO DAILY 08/25/23 10/11/24 History mg-hydrochlorothiazide 25 mg tablet (Maxzide-25mg) venlafaxine 75 mg capsule,extended 75 mg PO DAILY 08/25/23 10/11/24 History release 24 hr (Effexor XR) zolpidem 5 mg tablet 5 mg PO DAILY 08/25/23 10/11/24 History Allergies Allergy/AdvReac Type Severity Reaction Status Date / Time cefpodoxime (From Vantin) Allergy Unknown Unknown Verified 10/11/24 11:32 Exam Constitutional Documenting provider has reviewed patient's vital signs: yes Common normals: no apparent distress, oriented x3, healthy appearing, alert and well nourished General appearance: cooperative HENMT Common normals: normocephalic, hearing grossly normal bilaterally and moist oral mucous membranes Head and scalp: normocephalic Eye Common normals: PERRL Pupil: PERRL Neck & C-Spine Common normals: full ROM General: normal visual inspection Chest Common normals: inspection of chest normal Respiratory Common normals: normal respiratory effort, no retractions and no use of accessory muscles Back & Pelvis Lumbar spine/lower back: ROM limited, pain with ROM and lumbar spinal tenderness Lumbar spinal tenderness location: L3 and L5 Sacroiliac joints: SI joint(s) abnormal Other: bilateral sij positive joseph(patricks), gaenslens, thigh thrust, compression test strength 5/5 in BLE sensation intact BLE Neuro Common normals: oriented x3 Sensorium/orientation: alert Psych Common normals: mental status grossly normal, thought process normal, cooperative, affect normal, speech normal and activity/motor behavior normal Speech: normal speech Thought process: normal thought process Results Additional Findings Additional findings: If on a controlled substance or opioids, I have checked an [place] report on this patient and there are no aberrancies noted in the prescribing history.??If on a controlled substance or opioid a drug screen was completed and reviewed within the last year, and if there has not been a drug screen completed we ordered one today to monitor higher risk, state monitored pain medication use. As part of providing excellent, safe, comprehensive care, the following was completed at our patient's visit: 1. A medication reconciliation and review to ensure accurate knowledge of current/active medications, including asking our patients to inform us about any [id number] medications or herbal remedies/nutritional supplements/alternative remedies. 2. A review to specifically ensure our patients have had annual screening for screening for depression, screening for tobacco use, and screening for unhealthy alcohol use. For concerning screenings had a discussion with the patient, provided patient education, and recommended follow-up with primary care provider when appropriate. If patient noted with a risk of falling, they received education on strength, gait, and balance training to prevent future risk of falling. Portions of this note may have been carried over from the previous visit and updated as appropriate. Please note this office utilizes paper charting in addition to the electronic medical record. A list of current medications, vitals, and PMH is available there as the clinical staff outside of myself do not have access to [facility] charting during the clinic day operations. As part of providing quality comprehensive care the current medications, vitals, and PMH were reviewed in the paper chart. Assessment and Plan Assessment and Plan (1) Sacroiliitis: Assessment and Plan: The patient has had over 3 months of moderate to severe bilateral SIJ and low back pain with functional impairment and inadequate response to conservative care including NSAIDS (unless there are contraindication such as concurrent blood thinners), multiple oral or topical pain medications, and home exercise program/physical therapy.? Patient has completed >6 weeks of guided home exercise program and/or formal physical therapy program without relief of their symptoms.? The Oswestry Disability Index was completed, and the patient scored a 51%.? The patient noted the following:?? moderate to severe pain impacting ADLs, sitting, standing, walking, social life, travel We discussed the risks and benefits of the procedure with the patient, and we are NOT planning on using sedation as outlined in the guidelines from Medicare unless there is a documented reason that sedation would be strongly recommended.?? ?The procedure will be completed with fluoroscopic guidance.? (2) Lumbar stenosis with neurogenic claudication: Assessment and Plan: 10/11/24 left L4/5 L5/S1 TFESI >80% improvement ongiong (3) Chronic right shoulder pain: Assessment and Plan: 08/16/24 right shoulder injection >80% improvement ongoing (4) Failed back syndrome: (5) Lumbar spondylosis: Plan bilateral SIJ injection under fluoroscopy consider bilateral L3-4 L5-S1 MBB x2 working towards RFA for axial facet mediated low back pain, furthermore could consider SCS trial continue current medications through PCP continue HEP as tolerated, declining aquatherapy at this time f/u after injection
== END 2024-10-21 10:25 | disposition home or self-care (01) ==
LOC: PM 10:25
PROVIDERS: PCP Family Medicine; Visit Provider Nurse Practitioner
DX: M46.1 Sacroiliitis, not elsewhere classified (principal); M48.062 Spinal stenosis, lumbar region with neurogenic claudication; M25.511 Pain in right shoulder; M96.1 Postlaminectomy syndrome, not elsewhere classified; M47.816 Spondylosis without myelopathy or radiculopathy, lumbar region
CPT/HCPCS: G0463

== ENCOUNTER 2024-11-01 11:39 | Day surgery (SDC) | payer MEDICARE, SELFPAY ==
[2024-11-01 12:30] VITALS: BP 106/57; PULSE 77; TEMP 36.4; O2SAT 96
[2024-11-01 12:34] LABS: Glucometer 271 mg/dL (74-106)
[2024-11-01 13:17] VITALS: BP 98/52; PULSE 75; O2SAT 95
[2024-11-01 13:18] VITALS: BP 92/50; PULSE 74; O2SAT 94
[2024-11-01] MEDS: BUPIVACAINE HCL 0.25% PF 25 MG/10 ML VIAL 4 ML INJ (13:19)
[2024-11-01] MEDS: METHYLPREDNISOLONE ACETATE 40 MG/ML VIAL 80 MG INJ (13:19)
[2024-11-01] MEDS: IOHEXOL 240 MG/ML - 10 ML VIAL 24 MG INJ (13:19)
[2024-11-01] MEDS: LIDOCAINE HCL 2% 400 MG/20 ML MDV INJ (13:19)
--- NOTE | 2024-11-01 13:20 | W.PM.PROCNOT ---
Date of procedure: 11/01/24 Pre-op diagnosis: Pain due to bilateral sacroiliitis Post-op diagnosis: same as pre-op Procedure: Procedure: Bilateral sacroiliac joint injection Medications: Bupivacaine 0.25% 3cc, depomedrol 40mg x2 After informed consent was obtained, the patient was brought to the medical procedure unit and placed in the prone position, when a timeout was completed verifying correct patient, procedure, site, positioning, implant, and/or special equipment.? The skin overlying the area was prepped and draped in standard sterile fashion using alcohol.? A 25-gauge needle was inserted towards the left sacroiliac joint under direct fluoroscopic imaging.? Needle tip was advanced until the joint was encountered.? We instilled a total of 2 mL of solution.? The same procedure was then completed on the right side.? Postoperatively needles were removed.? The patient tolerated the procedure well without complication.? The patient reported reduction in pain symptoms postoperatively. Anesthesia: Local Surgeon: Som Azul Pathology: none sent Condition: stable Disposition: no change
== END 2024-11-01 13:24 | disposition home or self-care (01) ==
LOC: SURGOUT 11:39 → LAB 13:21 → SURGOUT 11-11 12:04
PROVIDERS: PCP Family Medicine; Visit Provider Anesthesiology
DX: M46.1 Sacroiliitis, not elsewhere classified (principal); M53.3 Sacrococcygeal disorders, not elsewhere classified; E11.8 Type 2 diabetes mellitus with unspecified complications; Z79.84 Long term (current) use of oral hypoglycemic drugs
CPT/HCPCS: 27096; 36415; 82948; J0665; J1010; Q9966

== ENCOUNTER 2024-11-01 11:43 | Outpatient (OUT) | payer MEDICARE, SELFPAY ==
[2024-11-01 12:09] LABS: Hematocrit 41.5 % (36.0-48.0); Hemoglobin 13.2 g/dL (12.0-16.0); Mean Corpuscular HGB Conc 31.8 g/dL (29.9-35.2); Mean Corpuscular Hemoglobin 30.2 pg (26.7-34.0); Platelet Count 239 10^3/uL (150-450); Red Blood Count 4.37 10^6/uL (4.20-5.40); Red Cell Distribution Width 14.6 % (11.0-15.0); White Blood Count 21.6 10^3/uL (4.0-11.0)
[2024-11-01 12:17] LABS: Estimated Average Glucose 154 mg/dL
[2024-11-01 12:41] LABS: Free T4 1.14 ng/dL (0.76-1.46)
[2024-11-01 12:47] LABS: Alanine Aminotransferase 43 U/L (14-59); Albumin Level 3.3 g/dL (3.4-5.0); Alkaline Phosphatase 89 U/L (46-116); Aspartate Amino Transferase 26 U/L (15-37); BUN Creatinine Ratio 31.7; Bilirubin Total 0.3 mg/dL (0.2-1.0); Carbon Dioxide 29.4 mmol/L (21.0-32.0); Chloride 109 mmol/L (98-107); Chol HDL Ratio 1.9; Cholesterol 111 mg/dL (<=200); Estimated GFR (African America 44 (>=60 mL/min/1.73m^2); Estimated GFR (Non-African Ame 36 (>=60 mL/min/1.73m^2); Free T3 1.62 pg/mL (2.18-3.98); Globulin 3.4 g/dL; Glucose 88 mg/dL (74-106); HDL Cholesterol 59 mg/dL (40-60); LDL Cholesterol Calculated 29.2 mg/dL; Potassium 5.4 mmol/L (3.5-5.1); Sodium 143 mmol/L (136-145); Thyroid Stimulating Hormone 0.958 uIU/mL (0.358-3.740); Total Protein 6.7 g/dL (6.4-8.2); Triglycerides 114 mg/dL (<=150); VLDL CHOLESTEROL 22.8 mg/dL
[2024-11-01 12:47] LABS: Creatinine Urine Random 93.71 mg/dL (20.00-300.00); Microalbum Creatinine Ratio Ur 13.8 mg/g (0.0-29.9); Microalbumin Urine Random 1.3 mg/dL (<=30.0)
[2024-11-01 13:04] LABS: Acanthocytes 1+; Band Neutrophils Absolute 0.2 10^3/uL (0.0-0.3); Basophils Abs Manual 0.43 10^3/uL (0.00-0.10); Eosinophils Absolute Manual 0.21 10^3/uL (0.00-0.70); Lymphocytes Absolute Manual 14.25 10^3/uL (1.20-3.80); Monocytes Absolute Manual 1.51 10^3/uL (0.30-0.80); Ovalocytes 1+; Poikilocytosis 1+; Segmented Neut Absolute Manual 4.96 10^3/uL (1.4-6.5)
== END 2024-11-01 11:44 | disposition home or self-care (01) ==
LOC: LAB 11:45
PROVIDERS: PCP Family Medicine; Visit Provider Family Medicine
DX: E78.5 Hyperlipidemia, unspecified (principal); E11.9 Type 2 diabetes mellitus without complications; E03.9 Hypothyroidism, unspecified; Z79.899 Other long term (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 therapy
CPT/HCPCS: 36415; 80053; 80061; 82043; 82570; 83036; 84439; 84443; 84481; 85007; 85027

== ENCOUNTER 2024-11-30 07:30 | Outpatient (RCR) | payer MEDICARE, SELFPAY | END 2024-12-11 23:59 | disposition home or self-care (01) | LOC: HEMC 07:30 | PROVIDERS: PCP Family Medicine; Visit Provider Internal Medicine Hematology & Oncology | DX: C91.10 Chronic lymphocytic leukemia of B-cell type not having achieved remission (principal); M79.7 Fibromyalgia; Z87.440 Personal history of urinary (tract) infections; M54.9 Dorsalgia, unspecified; G89.29 Other chronic pain; R53.82 Chronic fatigue, unspecified; Z96.653 Presence of artificial knee joint, bilateral; Z87.891 Personal history of nicotine dependence; Z90.710 Acquired absence of both cervix and uterus | CPT/HCPCS: G0463 ==

== ENCOUNTER 2024-12-01 09:12 | Outpatient (OUT) | payer MEDICARE, SELFPAY ==
--- OUTSIDE RECORDS SUMMARY | 2024-12-01 09:23 | XMS_ITS | CCD ---
Author Organization [facility] Team Providers Care Specimen Accessioner Name Role Phone Ayanna Vicente Primary Care Provider Ayanna Vicente Unavailable Ayanna Vicente Unavailable Ayanna Vicente Unavailable Aaynna Milner Unavailable DO Ayanna Vicente Primary Care Provider MD James Redding Emergency Provider [phone] MD Bertram Garrison Admit Provider MD Bertram Garrison Attending Provider MD Galo Max Admit Provider MD Galo Max Attending Provider [phone] ALLYSSA Penn Other Provider Unavailable ALLYSSA Orourke Other Provider Unavailable ALLYSSA Camejo Other Provider Unavailable ALLYSSA Das Other Provider Unavailable ALLYSSA Acosta Other Provider Unavailable ALLYSSA Wall Other Provider Unavailable MD Yuliana Hale Other Provider MD Herman Kevin Other Provider NATALI Powell Other Provider DO Madeline Juarez Other Provider [phone] MD Marcio Hernandez Other Provider DO Loco Velasquez Other Provider MD Elgin Irby Other Provider [phone] MD Adali Salamanca Other Provider Beulah, ANP-BC [...] Other Provider DO Felipe Howard Other Provider [phone] NATALI Montanez Other Provider DO Santiago Fontaine Other Provider MD Tyson De Los Santos Other Provider [phone] Claudia, ALLYSSA Chavez Other Provider Unavailable MD Pietro Corrla Other Provider MD Penny Mike Other Provider PABLO Quarles Other Provider DO Gume Macedo Other Provider [phone] MD Zohaib Akins II Other Provider DO Ayanna Vicente Attending Provider Ayanna Vicente DO Primary Care Provider Ayanna Vicente DO Unavailable [phone] Ayanna Vicente DO Unavailable DO Ayanna Vicente Primary Care Provider Ayanna Vicente DO Primary Care Provider Ayanna Vicente DO Unavailable Ayanna Vicente DO Unavailable [phone] DO Ayanna Vicente Primary Care Provider DO Ayanna Vicente Attending Provider [phone] MD Santos Lares Attending Provider Ayanna Vicente Primary Care Unavailable PABLO Dubon Attending Provider DO Ayanna Vicente Primary Care Provider DO Ayanna Vicente Attending Provider MD Santos Lares Attending Provider [phone] PABLO Dubon Attending Provider [phone] AYANNA VICENTE Primary Care Unavailable LAKSHMIPATHY ., NARENDRANATH Attending Abigail vailable VERNONMIPATHKamari ., NARENDRANATH Admitting Abigail vailable Ayanna Vicente Primary Care Physician [phone] DO Ayanna Vicente Primary Care Provider [phone] DO Ayanna Vicente Attending Provider [phone] Junior Butterfield Unavailable Homa Mckeon Unavailable Ayanna Vicente MD Primary Care Provider DO Ayanna Vicente Primary Care Provider DO Ayanna Vicente Attending Provider [phone] DO Ayanna Vicente Primary Care Provider [phone] DO Ayanna Vicente Attending Provider [phone] Ayanna Vicente DO Primary Care Provider Ayanna Vicente DO Unavailable [phone] Ayanna Vicente DO Unavailable DO Ayanna Vicente Primary Care Provider [phone] DO Ayanna Vicente Attending Provider [phone] Ayanna Vicente DO Primary Care Provider [phone] Ayanna Vicente DO Attending Provider Babita Guillaume DO Unavailable ESVIN DUBON Attending Unavailable JAMES SMITH Attending Unavailable JAMES SMITH Attending Unavailable JAMES SMITH Attending Unavailable BABITA GUILLAUME Attending Unavailable AYANNA VICENTE Referring Unavailable MOE BETTS Attending Unavailable ENRIQUE HAMMONDS Attending Unavailable BABITA GUILLAUME Referring Unavailable Ayanna Vicente DO Primary Care Provider Ayanna Vicente DO Attending Provider Marker , Tri Vasquez Attending Provider Ayanna Vicente DO Attending Provider RK RANDOLPH Attending Unavailab RK Hernandez Attending Unavailab RK Hernandez Attending Unavailab Ayanna Luevano Admitting Unavailable Sakina, Ayanna Attending Unavailable Ayanna Vicente Attending Unavailable Ayanna Vicente Admitting Unavailable Ayanna Vicente Primary Care Unavailable Ayanna Vicente Admitting Unavailable Ayanna Vicente Primary Care Unavailable Ayanna Vicente Attending Unavailable Sakina, Ayanna Admitting Unavailable Sakina, Ayanna Attending Unavailable Sakina, Ayanna Attending Unavailable Ayanna Vicente Admitting Unavailable Ayanna Vicente Primary Care Unavailable Marker, Tri Vasquez Admitting Unavailable Marker, Tri Vasquez Attending Unavailable Latha ROMEO, Andrius Bryson Attending Unavailable Giedraitis , Andrius Vrashad Attending Unavailable Giedraitis , Andrius Vytautas Attending Unavailable Girosangelaitis , Andrius Vytautas Attending Unavailable Giadelaraitis , Andrius Vytautas Attending Unavailable Girosangelaitis , Andrius Vytautas Attending Unavailable Girosangelaitis , Andrius Loganytautmaria alejandra Attending Unavailable ZOHAIB GERMAN Attending Unavailable AYANNA VICENTE Primary Care Unavailable CHAD FREITAS Attending Unavailable AYANNA VICENTE Primary Care Unavailable AYANNA VICENTE Primary Care Unavailable Allergies Allergy Classification Reported Allergen(s) Allergy Type Date of Onset Reaction(s) Facility Cephalosporins (antibiotic) (1 source) Cephalosporins (Antibiotic) Drug Allergy 02-20-20 04 Hives, Swelling [facility] (20 sources) cefpodoxime; Translations: [Vantin] Drug Allergy 12-24-19 16 Eye swelling (finding) [facility] (20 sources) cepahlosporins Propensity to adverse reactions Unknown [facility] [email or web address] Other (20 sources) Cephalosporins (Antibiotic); Translations: [Cephalosporins] Allergy to substance 02-20-20 04 Hives, Swelling, Swelling (morphologic abnormality), Eye swelling (finding), Unknown [facility] Comment on above: Eyes swelled also (20 sources) cefpodoxime; Translations: [CEFPODOXIME] Drug Allergy 02-17-20 19 Unknown, Other [facility] (1 source) Amoxicillin Drug Allergy 12-24-19 16 [facility] (15 sources) Medicinal cephalosporin and acting as antibacterial agent (FN) Drug allergy Unknown [facility] [email or web address] Other (2 sources) Bacitracin / Neomycin / Polymyxin B Drug Allergy Unknown [facility] Other (16 sources) Bacitracin; Translations: [bacitracin] Drug Allergy 08-12-19 24 Unknown Reaction [facility] (16 sources) Neomycin; Translations: [neomycin] Drug Allergy 08-12-19 24 Unknown Reaction [facility] (16 sources) polymyxin B; Translations: [polymyxin B] Allergy to substance 08-12-19 24 Unknown Reaction [facility] (1 source) cefpodoxime Drug Allergy 08-11-19 25 [facility] Medications Current Medications Medication Drug Class(es) Dates Sig (Normalized) Sig (Original) acetaminophen 325 mg / oxyCODONE hydrochloride 5 mg oral tablet (20 sources) Opioid Agonist Start: 02-05-2024 End: 11-10-2024 Oxycodone-Acetamin ophen (Percocet) 5-325 mg tablet Active 1 TAB PO .COMPLEX 60 November 10, 2024 1 tab orally one to two [...] PO Q6H as needed for Pain 7 7 January 24, 2022 February 05, 2024 9:06am Start: 01-14-2022 End: 01-24-2022 take 1 tablet by mouth once daily as needed for pain Oxycodone-Acetaminophen 5-325 mg tablet Discontinued 1 TAB PO Daily as needed for Pain January 14, 2022 12:00am January 24, 2022 [...] for Pain Scale 1 - 5 40 14 March 26, 2017 12:00am April 02, 2017 9:59am Start: 03-13-2017 End: 04-02-2017 take 1 tablet by mouth every four to six hours as needed for pain Oxycodone-Acetaminophen 5-325 mg Tablet Discontinued 1 TAB PO EVERY 4-6 HOURS as needed for Pain March 13, 2017 12:00am April 02, 2017 9:59am Start: 07-19-2011 OXYCODONE-ACET AMINOPHEN 5-325 mg ORAL tablet as needed. 07/19/2011 Active Comment on above: as needed. ascorbic acid 500 mg oral tablet (20 sources) Vitamin C Start: 10-21-2023 take 1 tablet by mouth once daily Ascorbic Acid (Vitamin C) 500 mg tablet Active 500 MG PO Daily October 21, 2023 12:00am [employer] tablet Orally Once a day; Note: [...] Tablet,Chewable Discontinued 81 MG PO Daily April 02, [...] 1 tablet by mouth in the morning. 01/24/2022 Active Start: 03-13-2017 End: 04-02-2017 take [...] Centrum Silver A ctive CENTRUM SILVER TABLET (11 sources) Start: 02-20-2004 CENTRUM SILVER TABLET Indications: Other specified idiopathic peripheral neuropathy Take one(1) tablet daily. 0 02/20/2004 Active Comment on above: Take one(1) tablet d aily. cholecalciferol 0.125 mg oral capsule (20 sources) Vitamin D Start: 10-21-2023 cholecalciferol (Vitamin D-3) 125 MCG (5000 UT) capsule 5,000 Units 10/21/2023 Active Start: 10-21-2023 Cholecalcifero l (Vitamin D3) 125 mcg (5,000 unit) capsule Active 5000 UNIT PO As Directed October 21, 2023 12:00am FreeTextSig: as directed Orally; Note: Source Status: Taking; Provider: Mike Luther ( ) Vitamin D3 125 M CG (5000 UT) as directed Orally Active Vitamin D3 125 M CG (5000 UT) as directed Orally Active dicyclomine hydrochloride 20 mg oral tablet (20 sources) Anticholinergic Start: 04-05-2024 take 1 tablet by mouth twice daily Dicyclomine 20 mg tablet Active 20 MG PO Twice daily 60 April 05, 2024 12:00am Start: 12-17-2021 take 1 tablet by jeniffer twice daily as needed Dicyclomine HCl 20 MG 1 tablet Orally TWICE A DAY NEEDED Dec, Not-Taking estradiol 0.1 mg/ml vaginal cream (2 sources) Estrogen Start: 11-10-2024 Estradiol 0.01 % (0.1 mg/gram) cream Active VAGINAL 3 Times a week November 10, 2024 12:00am Start: 08-16-2024 Estrace 0.1 mg /g Cream See Instructions, 42.5 gm, Refill(s) 6, apply a pea-sized amount vaginally and around the urethra 3x per week for UTI prevention, [facility], 178, cm, 08/16/24 9:10:00 EST, Height/Length Dosing, 103, kg, 08/16/24 9:10:00 EST, Weight Dosing Start Date: 08/16/24 Status: Ordered ezetimibe 10 mg oral tablet (20 sources) [...] 0 .ROUTE .COMPLEX 45 April 19, 2024 4:16pm TAKE 1/2 (ONE-HALF) OF A TABLET BY MOUTH DAILY Start: 03-13-2017 End: 10-13-2023 take 0.5 tablet by mouth once daily Triamterene-Hydrochlorothiazid 37.5-25 m g tablet Discontinued 0 PO Daily October 13, 2023 12:00am October 13, 2023 2:09pm take 1/2 tablet by mouth daily End: 06-23-2024 triamterene-hydrochlorothiaz shagufta (Maxzide) 75-50 MG tablet 1 (one) time each day at the same time. 06/23/2024 Discontinued 3 ml insulin glargine 100 unt/ml pen injector (20 sources) Insulin Analog Start: 02-10-2024 Insulin Glargi ne (Lantus Solostar U-100 Insulin) 100 unit/mL (3 mL) insulin pen Active 36 UNIT SUBCUT Every evening February 10, 2024 3:07pm Start: 10-21-2023 End: 02-10-2024 Insulin Glargine (Lantus Génesis ostar U-100 Insulin) 100 unit/mL (3 mL) insulin pen Discontinued 34 UNIT SUBCUT Every evening October 21, 2023 3:50pm February 10, 2024 3:07pm Start: 10-20-2023 End: 10-20-2023 Insulin Glargine (Lantus Génesis ostar U-100 Insulin) 100 unit/mL (3 mL) insulin pen Discontinued 46 UNIT SUBCUT Daily at bedtime October 20, 2023 12:00am October 20, 2023 2:21pm Start: 10-02-2022 End: 10-21-2023 Insulin Glargine (Lantus Génesis ostar U-100 Insulin) 100 unit/mL (3 mL) insulin pen Discontinued 0 .ROUTE .COMPLEX 45 October 20, 2023 2:21pm October 21, 2023 3:51pm INJECT 46 UNITS SUBCUTANEOUSLY AT BEDTIME Start: 01-13-2022 End: 01-24-2022 inject 21 [IU] [...] 12:00am April 02, 2017 9:58am insulin glargine (LANTUS) 100 unit/mL injection Inject subcutaneously. 21 units Active insulin glargine (Lantus) 100 UNIT/ML injection Subcutaneous Active Lantus SoloStar 100 UNIT/ML inject 46 units subcutaneously AT BEDTIME quantity sufficient for 90 days Active Lantus SoloStar 100 UNIT/ML inject 30 units subcutaneously AT BEDTIME Active Lantus SoloStar 100 UNIT/ML 30 units Subcutaneous qd hs Active Comment on above: Inject subcutaneousl y. 21 units ketoconazole 20 mg/ml topical cream (13 sources) Azole Antifungal ketoconazole (NIZOral) 2 % cream 1 application to affected area on the feet topically two times daily for 30 day(s) Active loperamide hydrochloride 2 mg oral tablet (20 sources) Opioid Agonist Start: 09-14-19 take 1 tablet by mouth once as [...] with meals 120 January 24, 2022 12:00am October 21, 2023 1:47pm Start: 04-02-2017 End: 10-21-2023 take 1000 mg by mouth twice daily at mealtime Metformin Discontinued 1000 MG PO Twice daily with meals 120 January 23, 2022 11:00pm October 21, 2023 12:47pm Start: 05-09-2011 End: 04-02-2017 take 1 tablet by mouth twice daily Metformin 1,000 mg Tablet Discontinued 1000 MG PO Twice daily March 13, 2017 12:00am April 02, 2017 9:58am Comment on above: Take 1,000 mg by jeniffer th twice daily with meals. 24 hr mirabegron 25 mg extended release oral tablet (20 sources) beta3-Adrenergic Agonist mirabegron ER (Myrbetriq) 25 MG 24 hr tablet 1 (one) time each day at the same time. Active Multiple Vitamin (Tab-A-Sivan) tablet (13 sources) Start: 01-24-2022 take 1 tablet by mouth in the morning Multiple Vitamin (Tab-A-Sivan) tablet Take 1 tablet by mouth in the morning. 01/24/2022 Active Start: 01-24-2022 take 1 tablet by jeniffer th in the morning Multiple Vitamin (Tab-A-Sivan) tablet Take 1 tablet by mouth in the morning. 0 01/24/2022 Active Multivitamin preparation (20 sources) Multivitamin Act balaji Multivitamin With Folic Acid (Thera) 400 mcg Tablet (20 sources) Start: 01-24-2022 take 1 [...] January 24, 2022 3:09pm Multivitamins and Minerals (3 sources) Start: 10-26-2020 Multivitamins and Minerals Refill(s) 0 Start Date: 10/26/20 Status: Ordered oxybutynin chloride 5 mg oral tablet (20 sources) Cholinergic Muscarinic Antagonist Start: 02-11-2023 take 1 tablet by mouth three times daily as needed oxybutynin (Ditropan) 5 MG tablet See Instructions, can take 1 tab po up to TID PRN incontinence, # 90 tab(s), Refills(s) 3, Pharmacy: [id number], 178, cm, 02/11/23 11:43:00 EDT, Height/Length Dosing, 106.9, kg, 02/11/23 11:43:00 EDT, Weight Dosing 02/11/2023 Active Start: 10-02-2021 take 1 tablet by jeniffer th every twenty-four hours Ditropan XL 10 MG 1 tablet Orally Once a day Sep, Not-Taking pregabalin 225 mg oral capsule (20 sources) Start: 06-09-2017 End: 10-04-2024 take 1 capsule by mouth twice daily LYRICA 225 mg ORAL capsule Take 225 mg by mouth twice daily. 03/12/2021 Active Start: 04-02-2017 End: 10-13-2023 take 3 capsules by mouth twice daily Pregabalin 75 mg Capsule Discontinued 225 MG PO Twice daily 180 January 24, 2022 12:00am October 13, 2023 2:10pm Start: 07-19-2011 End: 04-02-2017 take 1 capsule [...] hr venlafaxine 75 mg extended release oral tablet (20 sources) Serotonin and Norepinephrine Reuptake Inhibitor Start: 07-08-20 take 1 capsule by mouth once daily at mealtime Venlafaxine 75 mg capsule,extended release 24hr Active 0 .ROUTE .COMPLEX July 08, 2024 1:36pm TAKE 1 CAPSULE BY MOUTH EVERY DAY WITH FOOD Start: 01-01-2022 End: 07-08-2024 take 1 capsule by mouth once daily venlafaxine ER (EFFEXOR XR) 75 mg 24 hr capsule Take 75 mg by mouth once daily. 02/06/2022 Active Comment on above: Take 75 mg by mouth once daily. Vitamin B Complex (20 sources) Vitamin B Comple x Not-Taking Vitamin B Comple x Active Vitamin B Complex oral capsu le (3 sources) Start: 10-26-2020 Vitamin B Comp stewart [...] 1 - 3 or fever 0 January 15, 2022 12:00am January 24, 2022 3:09pm Start: 01-15-2022 End: 01-24-2022 take 650 mg by mouth every six hours Acetaminophen Discontinued 650 MG PO Q6H 0 January 14, 2022 11:00pm January 24, 2022 2:09pm Start: 04-02-2017 End: 01-13-2022 take 1 tablet by mouth every four hours as needed for pain Acetaminophen 325 mg Tablet Discontinued 325 MG PO Q4H as needed for Pain April 02, 2017 12:00am January 13, 2022 4:42pm Start: 04-02-2017 End: 01-13-2022 take 2 tablets by mouth every four hours as needed for pain Acetaminophen 325 mg Tablet Discontinued 650 MG PO Q4H as needed for Pain April 02, 2017 12:00am January 13, 2022 [...] Q4H as needed for Severe Pain April 02, 2017 12:00am January 14, 2022 11:19am amoxicillin 500 mg oral capsule (13 sources) Penicillin-class Antibacterial Start: 01-12-2024 End: 02-05-2024 take 2 capsules by mouth every twelve hours Amoxicillin 500 mg capsule Discontinued 1000 MG PO Every 12 hours 40 January 12, 2024 12:00am February 05, 2024 8:16am Start: 01-12-2024 End: 02-05-2024 take 1000 mg by mouth every twelve hours Amoxicillin Discontinued 1000 MG PO Every 12 hours 40 January 11, 2024 11:00pm February 05, 2024 7:16am atorvastatin 20 mg oral tablet (20 sources) HMG-CoA Reductase Inhibitor Start: 10-13-2023 End: 10-21-2023 take 1 tablet by mouth once daily Atorvastatin 20 mg tablet Discontinued 0 .ROUTE .COMPLEX 90 October 13, 2023 2:08pm October 21, 2023 3:22pm TAKE 1 TABLET BY MOUTH DAILY Start: 10-13-2023 End: 10-21-2023 take 1 tablet by mouth once daily Atorvastatin Discontinued 0 .ROUTE .COMPLEX 90 October 13, 2023 1:08pm October 21, 2023 [...] oral tablet (20 sources) Quinolone Antimicrobial Start: 06-18-2024 End: 11-10-2024 take 1 tablet by mouth twice daily Ciprofloxacin Hcl (Cipro) 500 mg tablet Discontinued 500 MG PO Twice daily 14 August 11, 2024 2:38pm November 10, 2024 3:51pm Start: 03-17-2024 End: 05-11-2024 take 1 tablet by mouth twice daily Ciprofloxacin Hcl (Cipro) 500 mg tablet Discontinued 500 MG PO Twice daily 20 April 05, 2024 12:00am May 11, 2024 2:47pm Start: 02-10-2024 End: 03-08-2024 take 1 tablet by mouth twice daily Ciprofloxacin Hcl (Cipro) 250 mg tablet Discontinued 250 MG PO Twice daily 10 February 10, 2024 12:00am March 08, 2024 2:47pm Start: 05-20-2018 End: 10-20-2023 take 1 tablet by mouth twice daily Ciprofloxacin Hcl 500 mg tablet Discontinued 500 MG PO Twice daily 02 05October 17, 2023 12:00am October 20, 2023 9:49am citalopram 40 mg oral tablet (20 sources) [...] Comment on above: Take one(1) tablet d karla. cyclobenzaprine hydrochloride 5 mg oral tablet (20 sources) Muscle Relaxant Start: 04-02-20 End: 01-14-20 take 1 tablet by mouth every eight hours as needed for muscle spasms Cyclobenzaprine 5 mg Tablet Discontinued 5 MG PO Q8H as needed for Muscle Spasm 60 April 02, 2017 12:00am January 13, 2022 4:43pm docusate sodium 100 mg oral capsule (20 sources) Start: 04-02-20 End: 01-14-20 take 1 capsule by mouth twice daily Docusate Sodium 100 mg Capsule Discontinued 100 MG PO Twice daily 60 April 02, 2017 12:00am January 13, 2022 4:43pm docusate sodium 50 mg / sennosides, mcc 8.6 mg oral tablet (20 sources) Start: 03-26-20 End: 04-02-20 take 1 tablet by mouth twice daily Sennosides-Docusate Sodium (Dok Plus) 8.6-50 mg Tablet Discontinued 1 TAB PO Twice daily 40 March 26, 2017 12:00am April 02, 2017 9:59am 72 hr fentaNYL 0.025 mg/hr transdermal system [...] 324 MG PO Twice daily 60 April 02, 2017 12:00am January 13, 2022 4:44pm furosemide 20 mg oral tablet (20 sources) Loop Diuretic Start: 01-14-20 End: 01-16-20 take 10 mg by mouth once daily Furosemide 20 mg tablet Discontinued 10 MG PO Daily at 799January 13, 2022 4:48pm January 15, 2022 12:05pm Start: 01-13-2022 End: 01-15-2022 take 10 mg by mouth once daily Furosemide Discontinued 10 MG PO Daily at 799January 13, 2022 3:48pm January 15, 2022 11:05am Start: 02-20-2004 End: 01-13-2022 LASIX 20MG TABLET Indication s: Other specified idiopathic peripheral neuropathy Take one(1) tablet daily. 0 02/20/2004 Active Comment on above: Take one(1) tablet d aily. hydroxychloroquine sulfate 200 mg oral tablet (20 sources) Antimalarial, Antirheumatic Agent Start: 2024 End: 2024 take 1 tablet by mouth twice daily Hydroxychloroquine 200 mg tablet Discontinued 200 MG PO Twice daily August 11, 2024 1:00am November 10, 2024 3:52pm Start: 01-09-2022 End: 05-12-2025 take 2 tablets [...] Tablet Discontinued 200 MG PO Daily April 02, 2017 12:00am January 13, 2022 4:45pm take 1 tablet by jeniffer th twice daily hydroxychloroquine (Plaquenil) 200 MG tablet take 1 tablet (200MG) by ORAL route 2 times every day Oral Active Plaquenil 200 mg 1 tablet twice [...] 15, 2022 5:37pm January 24, 2022 3:09pm Please contact the information source for Protocol [...] at bedtime 7.5 January 24, 2022 12:00am October 21, 2023 3:11pm Start: 04-02-2017 End: 05-02-2017 Insulin Detemir U-100 (Levem ir Flextouch U100 Insulin) 100 unit/mL (3 mL) Insulin Pen Discontinued 20 UNIT SUBCUT Daily at bedtime 01 10April 02, 2017 12:00am May 01, 2017 12:00am May 02, 2017 12:03am Insulin Glargine 100 unit/mL Cartridge (5 sources) Start: 01-13-2022 End: 01-24-2022 inject 21 [IU] by subcutaneous injection once daily at bedtime Insulin Glargine 100 unit/mL Cartridge Discontinued 21 UNIT SUBCUT Daily at bedtime January 13, 2022 12:00am January 24, 2022 3:09pm Start: 01-13-2022 End: 01-24-2022 inject 21 [IU] [...] Discontinued 750 MG PO Daily 07 14January 15, 2022 12:00am January 24, 2022 3:09pm next dose 01/17 levothyroxine sodium 0.1 mg oral tablet (20 sources) l-Thyroxine Start: 10-21-2023 End: 04-19-2024 take 1 tablet by mouth once daily in the morning Levothyroxine 100 mcg tablet Discontinued 100 MCG PO Daily April 19, 2024 3:57pm April 19, 2024 4:18pm TAKE 1 TABLET BY MOUTH EVERY MORNING [...] 75 MCG PO Daily at 0730 30 January 24, 2022 12:00am October 21, 2023 3:14pm Start: 06-10-2011 LEVOTHYROXINE 88 mcg ORAL tablet 06/10/2011 Active End: 06-23-2024 take 1 tablet by mouth once daily levothyroxine (Synthroid) 50 MCG tablet take 1 tablet by ORAL route every day Oral 06/23/2024 Discontinued take 1 tablet by jeniffer th once daily in the morning Levothyroxine Sodium 100 mcg TAKE 1 TABLET BY MOUTH EVERY MORNING ON AN EMPTY STOMACH Active lidocaine 0.05 mg/mg medicated patch (20 sources) Antiarrhythmic, Amide Local Anesthetic Start: 04-02-2017 End: 01-13-2022 Lidocaine 5 % Adhesive Patch,Medicated Discontinued 2 EACH TOPICAL Daily April 02, 2017 12:00am January 13, 2022 4:45pm lisinopril 10 mg oral tablet (20 sources) Angiotensin Converting Enzyme Inhibitor Start: 10-13-2023 End: 10-21-2023 take 1 tablet by mouth once daily Lisinopril 10 mg tablet Discontinued 0 .ROUTE .COMPLEX 90 October 13, 2023 2:08pm October 21, 2023 3:51pm TAKE 1 TABLET BY MOUTH DAILY Start: 05-09-2011 End: 04-19-2024 take 1 tablet by mouth once daily Lisinopril 10 mg tablet Discontinued 10 MG PO Daily October 21, 2023 3:51pm April 19, 2024 4:16pm Start: 02-20-2004 take 10 mg by mouth once daily ZESTRIL 20MG TABLET Indications: Other specified idiopathic peripheral neuropathy Take 10 mg by mouth once daily. 0 02/20/2004 Active Start: 02-20-2004 End: 04-18-2022 lisinopril (ZESTRIL, PRINIVI L) 20 mg tablet Comment on above: Take one(1) tablet d aily. Take 10 mg by mouth once daily. melatonin 5 mg oral tablet (20 sources) Start: 01-15-2022 End: 10-21-2023 take 2 tablets by mouth once daily at bedtime Melatonin 5 mg Tablet Discontinued 10 MG PO Daily at bedtime 60 January 24, 2022 12:00am October 21, 2023 3:12pm Start: 01-15-2022 End: 10-21-2023 take 10 mg by mouth once daily at bedtime Melatonin Discontinued 10 MG PO Daily at bedtime 60 January 23, 2022 11:00pm October 21, 2023 2:12pm End: 07-28-2023 MELATONIN ORAL Take by mouth [...] 13, 2017 12:00am April 02, 2017 9:59am nitrofurantoin, macrocrystals 25 mg / nitrofurantoin, monohydrate 75 mg oral capsule (20 sources) Nitrofuran Antibacterial Start: 05-11-2024 End: 08-11-2024 take 1 capsule by mouth twice daily at mealtime Nitrofurantoin Monohyd/M-Cryst (Macrobid) 100 mg capsule Discontinued 100 MG PO Twice daily 24 01May 11, 2024 12:00am August 11, 2024 2:12pm must administer with a meal/food Start: 10-20-2023 End: 01-12-2024 take 1 capsule by mouth twice daily at mealtime Nitrofurantoin Monohyd/M-Cryst (Macrobid) 100 mg capsule Discontinued 100 MG PO Twice daily October 20, 2023 4:08pm January 12, 2024 2:24pm must administer with a meal/food 24 hr propranolol hydrochloride 60 mg extended release oral capsule (20 sources) beta-Adrenergic Jose Carlos Start: 07-12-2023 take 1 capsule by mouth every twenty-four hours in the morning propranolol LA (Inderal LA) 60 MG 24 hr capsule Take 60 mg by mouth in the morning. 07/12/2023 Active Start: 02-20-2004 End: 04-19-2024 INDERAL [...] If no BM in 2 days April 02, 2017 12:00am January 13, 2022 4:47pm Start: 04-02-2017 End: 01-13-2022 Sennosides (Senna Lax) 8.6 m g Tablet Discontinued 2 EACH PO DAILY@12 as needed for If no BM in 2 days April 01, 2017 11:00pm January 13, 2022 3:47pm Start: 04-02-2017 End: 01-13-2022 Sennosides (Senna Lax) 8.6 m g Tablet Discontinued 2 EACH PO DAILY@12 April 01, 2017 11:00pm January 13, 2022 3:47pm Start: 04-02-2017 End: 01-13-2022 Sennosides (Senna Lax) 8.6 m g Tablet Discontinued 2 EACH PO DAILY@12 April 02, 2017 12:00am January 13, 2022 4:47pm sulfamethoxazole 800 mg / trimethoprim 160 mg oral tablet (20 sources) Dihydrofolate Reductase Inhibitor Antibacterial, Sulfonamide Antimicrobial Start: 03-26-2017 End: 01-13-2022 take 1 tablet by mouth twice daily Sulfamethoxazole-Trimethoprim 800-160 mg Tablet Discontinued 1 TAB PO Twice daily April 02, 2017 12:00am January 13, 2022 4:47pm traMADol hydrochloride 50 mg oral tablet (20 sources) Opioid Agonist Start: 01-15-2022 End: 01-15-2022 take 1 tablet by mouth every eight hours as needed for pain Tramadol 50 mg Tablet Discontinued 50 MG PO Q8H as needed for Pain Scale 4 - 7 0 January 15, 2022 12:00am January 15, [...] on above: Take one(1) tablet d aily. trospium chloride 20 mg oral tablet (16 sources) Cholinergic Muscarinic Antagonist Start: End: 5 take 1 tablet by mouth twice daily Trospium 20 mg tablet Discontinued 20 MG PO Twice daily March 08, 2024 12:00am November 10, 2024 3:54pm zolpidem tartrate 5 mg oral tablet (20 sources) gamma-Aminobutyric Acid-ergic Agonist Start: End: 5 take 1 tablet by mouth once daily at bedtime Zolpidem 5 mg tablet Discontinued 5 MG PO Daily at bedtime 90 90 October 16, 2023 12:43pm May 07, 2024 1:01pm Start: 10-02-2022 take 1 tablet by jeniffer [...] Start: 04-24-2018 take 0.5 tablet by m out once daily at bedtime as needed Ambien 10 mg 1/2 tablet at bedtime as needed Orally Once a day for 90 days Apr, Active Start: 03-13-2017 End: 04-04-2022 take 1 tablet by mouth once daily at bedtime as needed for sleep Zolpidem (Ambien) 5 mg tablet Discontinued 5 MG PO Daily at bedtime as needed for Sleep January 13, 2022 4:48pm January 15, 2022 [...] and activities of daily living] 01-16-2022 Episodic Cardiac dysrhythmias (2 sources) Premature beats; Translations: [Other premature depolarization] 11-10-2024 Chronic Chronic kidney disease (2 sources) Chronic kidney disease stage 3B ; Translations: [Stage 3b chronic kidney disease] 11-10-2024 Chronic Deficiency and other anemia (20 sources) Anemia; [...] (primary) hypertension] Onset: 07-14-2009 Resolved: 03-19-2022 Chronic Fluid and electrolyte disorders (1 source) Hyperkalemia; Translations: [Hyperkalemia] 11-10-2024 Episodic Fracture of upper limb (20 sources) Fracture of unspecified carpal bone, right wrist, initial encounter for closed fracture; Translations: [Fracture at wrist and/or hand level] Onset: 02-06-2022 Resolved: 02-06-2022 Episodic Genitourinary symptoms and ill-defined conditions (20 sources) Mixed incontinence; Translations: [Genuine stress incontinence] Onset: 12-06-2022 Chronic Genitourinary symptoms and ill-defined conditions (4 sources) Increased frequency of urination; Translations: [Poor stream of urine] 07-31-2021 Episodic Headache; including migraine (20 sources) Migraine; Translations: [Migraine, unspecified, not intractable, without status migrainosus] Chronic Headache; including migraine (3 sources) Headache 12-19-2020 Episodic Immunizations and screening for infectious disease (3 sources) Encounter for immunization; Translations: [Flu vaccine need Z23] Onset: 04-04-2021 Resolved: 04-04-2021 Episodic Leukemias (20 sources) Chronic lymphoid leukemia, disease; Translations: [Chronic lymphocytic leukemia of B-cell type not having achieved remission] Onset: 05-26-2024 Chronic Lymphadenitis (1 source) Axillary lymphadenopathy; Translations: [Localized enlarged lymph nodes] Episodic Menopausal disorders (13 sources) Atrophy of vagina; Translations: [Postmenopausal atrophic vaginitis] Onset: 12-06-2022 12-06-2022 Chronic Miscellaneous mental health disorders (8 sources) Chronic insomnia; Translations: [Psychophysiologic insomnia] 05-12-2024 Chronic Mood disorders (20 sources) Major depressive disorder, single episode, unspecified; Translations: [Depression] Onset: 04-04-2021 Resolved: 02-06-2022 Chronic Mycoses (20 sources) Onychomycosis; Translations: [Tinea unguium] Onset: 12-08-2022 12-08-2022 Episodic Nonmalignant breast conditions (1 source) Breast signs and symptoms; Translations: [Other signs and symptoms in breast] Episodic Nutritional deficiencies (20 sources) Vitamin D deficiency; Translations: [Vitamin D deficiency, unspecified] 03-27-2017 Chronic Osteoarthritis (6 sources) Arthritis; Translations: [Osteoarthritis of right hip joint] 12-19-2020 Chronic Other acquired deformities (20 sources) Deformity of foot; Translations: [Unspecified acquired deformity of unspecified lower leg] 03-08-2024 Episodic Other aftercare (5 sources) 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; Translations: [Long-term (current) use of other medications] Onset: 02-06-2022 Resolved: 02-06-2022 Episodic Other aftercare (14 sources) Long-term current use of drug therapy; Translations: [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] 10-21-2023 Episodic Other aftercare (2 sources) H/O: high risk medication; Translations: [Other fpc (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 therapy] 06-17-2024 Episodic Other and unspecified benign neoplasm (20 sources) History of polyp of colon; Translations: [Personal history of colonic polyps] Episodic Other and unspecified benign neoplasm (1 source) Benign lipomatous neoplasm, unspecified Episodic Other circulatory disease (20 sources) Low blood pressure; Translations: [Hypotension, unspecified] 01-13-2022 Episodic Other circulatory disease (1 source) Hypotension, unspecified; Translations: [Hypotension, unspecified] 01-15-2022 Episodic Other connective tissue disease (13 sources) Artificial knee joint present; Translations: [Presence of unspecified artificial knee joint] Onset: 12-06-2022 12-06-2022 Chronic Other connective tissue disease (20 sources) Fibromyalgia; Translations: [Fibromyalgia] 12-19-2020 Episodic Other connective tissue disease (9 sources) Rheumatism, unspecified; Translations: [Rheumatism, unspecified and fibrositis] Onset: 04-04-2021 Resolved: 10-02-2021 Episodic Other connective tissue disease (17 sources) Rheumatism; Translations: [Rheumatism, unspecified] 10-26-2020 Episodic [...] Chronic Other diseases of bladder and urethra (16 sources) Overactive bladder; Translations: [Overactive bladder] Onset: [...] 09-13-2021 Resolved: 10-02-2021 Chronic Other gastrointestinal disorders (9 sources) Irritable bowel syndrome with diarrhea; Translations: [Irritable bowel syndrome] Onset: 12-17-2021 Resolved: 12-17-2021 Chronic Other gastrointestinal disorders (20 sources) Constipation; Translations: [Constipation, unspecified] Onset: 06-23-2024 03-28-2017 Episodic Other gastrointestinal disorders (20 sources) Dysphagia; Translations: [Dysphagia, unspecified] Episodic Other gastrointestinal disorders (8 sources) Diarrhea; Translations: [Diarrhea, unspecified] Onset: 06-23-2024 06-23-2024 Episodic Other injuries and conditions due to [...] Translations: [Pleurodynia] Episodic Other lower respiratory disease (3 sources) Nodule of lung 10-26-2020 Episodic Other lower respiratory disease (1 source) Pleurodynia Episodic Other nervous system disorders (20 sources) Neuropathy; Translations: [Polyneuropathy, unspecified] 10-26-2020 Chronic Other nervous system disorders (20 sources) Polyneuropathy, unspecified; Translations: [Mononeuritis of unspecified site] Onset: 04-04-2021 Resolved: 03-19-2022 Chronic Other nervous system disorders (11 sources) Peripheral nerve disease ; Translations: [Polyneuropathy, unspecified] 03-08-2024 Chronic Other nervous system disorders (2 sources) Disturbance of attention; Translations: [Attention and concentration deficit] 06-28-2024 Chronic Other nervous system disorders (2 sources) Chronic pain; Translations: [Other chronic pain] 06-28-2024 Chronic Other nervous system disorders (20 sources) Nervous system symptoms; Translations: [Other abnormalities of gait and mobility] Episodic Other nervous system disorders (2 sources) Other abnormalities of gait and mobility Onset: 02-06-2022 Resolved: 02-06-2022 Episodic Other nervous system disorders (20 sources) Postoperative pain ; Translations: [Other acute postprocedural pain] 03-27-2017 Episodic Other nervous system disorders (6 sources) Impaired cognition; Translations: [Other symptoms and signs involving cognitive functions and awareness] 06-17-2024 Episodic Other nervous system disorders (2 sources) Word finding difficulty ; Translations: [Other speech disturbances] 06-28-2024 Episodic Other non-traumatic joint disorders (3 sources) Sacroiliac disorder 10-26-2020 Episodic Other non-traumatic joint disorders (1 source) Pain in unspecified hip Episodic Other non-traumatic joint disorders (1 source) Pain in right hip Episodic Other non-traumatic joint disorders (8 sources) Hip pain; Translations: [Pain in left [...] Chronic Other nutritional; endocrine; and metabolic disorders (6 sources) Body mass index 30+ - obesity; [...] 02-06-2022 Episodic Otitis media and related conditions (17 sources) Otitis media of right ear; Translations: [Otitis media, unspecified, right ear] 01-12-2024 Episodic Residual codes; unclassified (6 sources) Sedative, hypnotic AND/OR anxiolytic-induced sleep disorder; [...] postprocedural states] 03-27-2017 Episodic Residual codes; unclassified (17 sources) Peripheral edema; Translations: [Localized edema] 10-26-2020 Episodic Residual codes; unclassified (3 sources) Localized edema; Translations: [Edema] 10-21-2023 Episodic Residual codes; unclassified (8 sources) Memory impairment; Translations: [Other amnesia] 05-11-2024 Episodic Residual codes; unclassified (4 sources) Other amnesia; Translations: [Memory loss] 05-11-2024 Episodic Residual codes; unclassified (2 sources) Amnesia; Translations: [Other amnesia] 06-28-2024 Episodic Residual codes; unclassified (2 sources) Family history of dementia; Translations: [Family history of other mental and behavioral disorders] 06-28-2024 Episodic Rheumatoid arthritis and related disease (13 sources) Rheumatoid arthritis; Translations: [Rheumatoid arthritis, unspecified] [...] Resolved: 12-17-2021 Episodic Other connective tissue disease (13 sources) Left achilles tendonitis; Translations: [Achilles tendinitis, left leg] Onset: 12-08-2022 12-08-2022 Episodic Other connective tissue disease (13 sources) Calcaneal spur; Translations: [Calcaneal spur, unspecified foot] Onset: 12-08-2022 12-08-2022 Episodic Other female genital disorders (13 sources) Burning sensation of vulva; Translations: [Other specified conditions associated with female genital organs and menstrual cycle] Onset: 12-06-2022 12-06-2022 Episodic Other gastrointestinal disorders (1 source) Dysphagia, unspecified Onset: 01-07-2022 Resolved: 01-07-2022 Episodic Other gastrointestinal disorders (2 sources) Change in bowel habit Onset: 09-13-2021 Resolved: 09-13-2021 Episodic Other nervous system disorders (13 sources) Notalgia paresthetica; Translations: [Paresthesia of skin] Onset: 12-06-2022 12-06-2022 Episodic Other nervous system disorders (13 sources) Unsteady when standing; Translations: [Unsteadiness on feet] Onset: 12-06-2022 12-06-2022 Episodic Other non-traumatic joint disorders (20 sources) Pain in right knee; Translations: [Pain in joint, lower leg] Onset: 07-24-2011 Resolved: 02-06-2022 Episodic Other non-traumatic joint disorders (1 source) Pain in unspecified knee; Translations: [Knee pain M25.569] Onset: 04-04-2021 Resolved: 04-04-2021 Episodic Other non-traumatic joint disorders (6 sources) Pain in left hip; Translations: [Pain in joint, pelvic region and thigh] Onset: 05-26-2024 Episodic Unclassified (2 sources) Cough R05.9 Onset: 10-01-2021 Resolved: 10-02-2021 Unclassified (1 source) Lumbar pain M54.50 Results Test Name Value Interpretation Reference Range Facility [facility] 11-17-2024 [facility] Telephone ([facility]) KATHY WASHBURN ([id number]) 1940 F Date Time Provider Department 11/17[facility] During your visit today, we recorded the following information about you: Lori Renner 11/17/2024 11:[address] Zena DREW Received a call from patient caregiver Roxie Bhagat. She stated that patient would like to cancel her upcoming appointment with Dr Paredes on 11/24 due to patient is going to be following with Dr Silva @ [facility] as this is closer to home for patient. Roxie requested to talk to medical records regarding having records sent to Dr Silva transferred call To Heather Todd. [facility]17/[facility]24 2:36 PM Signed Records faxed to Dr. Silva [phone]. I called Roxie to let her know they were faxed. Allergies As of Date: 11/17/2024 Noted Allergy Reaction CEPHALOSPORINS 02/20/2004 4 - Hives 7 - Swelling VANTIN (CEFPODOXIME) 04/03/2022 16 - Unknown Date Reviewed: 05/26/2024 Reviewed by: Lluvia Samuel MA - Fully Assessed Reason for Visit: Records faxed [Other] Prescriptions as of 11/17/2024 - hydrOXYchloroQUINE (PLAQUENIL) 200 mg tablet Take 2 tablets by mouth once daily. - venlafaxine ER (EFFEXOR XR) 75 mg 24 hr capsule Take 75 mg by mouth once daily. - insulin glargine (LANTUS) 100 unit/mL injection Inject subcutaneously. 21 units - LYRICA 225 mg ORAL capsule Take 225 mg by mouth twice daily. - OXYCODONE-ACETAMINOPH EN 5-325 mg ORAL tablet as needed. - METFORMIN 1,000 mg ORAL tablet Take 1,000 mg by mouth twice daily with meals. - LEVOTHYROXINE 88 mcg ORAL tablet - LASIX 20MG TABLET Take one(1) tablet daily. - INDERAL LA 60MG CAPSULE SA Take one(1) tablet daily. - ZETIA 10MG TABLET Take one(1) tablet daily. - atorvastatin (LIPITOR) 20 mg tablet Take 20 mg by mouth. - ZESTRIL 20MG TABLET Take 10 mg by mouth once daily. - ASPIRIN 81MG TABLET Take one (1) tablet daily . - CENTRUM SILVER TABLET Take one(1) tablet daily. Problem List As Of Date 11/17/2024 Noted Resolved Knee pain [M25.569] 07/24/2011 Encounter Status:Closed by LORI RENNER on 11/17/24 Normal [facility] Acanthocytes [Presence] in B lood by Light microscopyon 11-01-2024 Acanthocytes LM Ql (Bld) Acanthocytes [Presence] in Blood by Light microscopy [facility] Basophils/100 WBC Manual cnt (Bld)on 11-01-2024 Basophils/100 WBC (Bld) Basophils/100 leukocytes in Blood by Manual count 0.2-2.0 [facility] Cholesterol in LDL Calc [Mas s/Vol]on 11-01-2024 Cholesterol in LDL [Mass/Vol] Cholesterol in LDL [Mass/volume] in Serum or Plasma by calculation [facility] Comment on above: <100 mg/dl [id number] 0-129 mg/dl NEAR OR ABOVE [id number] mg/dl BORDERLINE [id number] mg/dl HIGH>190 mg/dl VERY HIGH Cholesterol in VLDL Calc [Ma ss/Vol]on 11-01-2024 Cholesterol in VLDL [Mass/Vol] Cholesterol in VLDL [Mass/volume] in Serum or Plasma by calculation [facility] Eosinophils/100 WBC Manual c nt (Bld)on 11-01-2024 Eosinophils/100 WBC (Bld) Eosinophils/100 leukocytes in Blood by Manual count 0.9-7.0 [facility] Estimated glomerular filtrat ion rate (GFR) non- Americanon 11-01-2024 GFR/1.73 sq M.predicted among non-blacks MDRD (S/P/Bld) [Vol rate/Area] Estimated glomerular filtration rate (GFR) non- Low >=60 mL/min/1.73 m 2 [facility] Globulin Calc (S) [Mass/Vol] on 11-01-2024 Globulin (S) [Mass/Vol] Serum globulin measurement by calculation (mass/volume) [facility] Glucose mean value [Mass/vol ume] in Blood Estimated from glycated hemoglobinon 11-01-2024 Average glucose Estimated from glycated hemoglobin (Bld) [Mass/Vol] Glucose mean value [Mass/volume] in Blood Estimated from glycated hemoglobin [facility] Hemoglobin A1c percentageon 11-01-2024 HbA1c (Bld) [Mass fraction] Hemoglobin A1c percentage High 4.5-6.2 [facility] Comment on above: ADA RECOMMENDED LIMI T 4.0 - 6.0ADA THERAPEUTIC TARGET < 7.0ACTION SUGGESTED> 7.0 Laboratory - Chemistry and C hemistry - challengeon 11-01-2024 Albumin [Mass/Vol] 3.3 g/dL Low 3.4-5.0 [facility] ALP [Catalytic activity/Vol] 89 U/L 46-116 [facility] ALT [Catalytic activity/Vol] 43 U/L 14-59 [facility] AST [Catalytic activity/Vol] 26 U/L 15-37 [facility] Bilirubin [Mass/Vol] 0.3 mg/dL 0.2-1.0 [facility] Calcium [Mass/Vol] 9.0 mg/dL 8.5-10.1 [facility] Chloride [Moles/Vol] 109 mmol/L High 98-107 [facility] Cholesterol [Mass/Vol] 111 mg/dL <=200 [facility] Cholesterol in HDL [Mass/Vol] 59 mg/dL 40-60 [facility] Comment on above: > or =60 mg/dl - LOW CARDIOVASCULAR RISK<40 mg/dl - HIGH CARDIOVASCULAR RISK CO2 [Moles/Vol] 29.4 mmol/L 21.0-32.0 [facility] Creatinine [Mass/Vol] 1.39 mg/dL High 0.55-1.02 [facility] Free T4 [Mass/Vol] 1.14 ng/dL 0.76-1.46 [facility] GFR/1.73 sq M.predicted MDRD (S/P/Bld) [Vol rate/Area] 44 mL/min/{1.73_m2} Low >=60 mL/min/1.73 m 2 [facility] Glucose [Mass/Vol] 88 mg/dL 74-106 [facility] Potassium [Moles/Vol] 5.4 mmol/L High 3.5-5.1 [facility] Protein [Mass/Vol] 6.7 g/dL 6.4-8.2 [facility] Sodium [Moles/Vol] 143 mmol/L 136-145 [facility] Triglyceride [Mass/Vol] 114 mg/dL <=[address] [facility] TSH Qn 0.958 m[IU]/L 0.358-3.740 [facility] Urea nitrogen [Mass/Vol] 44.0 mg/dL High 7.0-18.0 [facility] Urea nitrogen/Creatinine [Mass ratio] 31.7 mg/mg [facility] Laboratory - Hematology and Cell countson 11-01-2024 Band form neutrophils/100 WBC (Bld) 1.0 % 0-5 [facility] Lymphocytes/100 WBC (Bld) 66.0 % High 20.5-60.0 [facility] Monocytes/100 WBC (Bld) 7.0 % 1.7-12.[address] [facility] Microalbumin [Mass/volume] i n Urineon 11-01-2024 Albumin DL <= 20 mg/L (U) [Mass/Vol] Microalbumin [Mass/volume] in Urine <=30.0 [facility] No Panel Informationon 11-01 Absolute Basophils (Manual) 0.43 10 3/uL High 0.00-0.10 [facility] Band Neutrophils # (Manual) 0.2 10 3/uL 0.0-0.3 [facility] Eosinophils # (Manual) 0.21 10 3/uL 0.00-0.70 [facility] Free Triiodothyronine 1.62 pg/mL Low 2.18-3.98 [facility] Lymphocytes # (Manual) 14.25 10 3/uL High 1.20-3.80 [facility] Monocytes # (Manual) 1.51 10 3/uL High 0.30-0.80 [facility] Segmented Neutrophils # (Manual) 4.96 10 3/uL 1.4-6.5 [facility] Urine Random Creatinine 93.71 mg/dL 20.0 0-300.0 0 [facility] Ovalocyte detectionon 2024 Ovalocytes LM Ql (Bld) Ovalocyte detection [facility] Poikilocytosis [Presence] in Blood by Light microscopyon 11-01-2024 Poikilocytosis LM Ql (Bld) Poikilocytosis [Presence] in Blood by Light microscopy [facility] Segmented neutrophils/100 WB C Manual cnt (Bld)on 11-01-2024 Segmented neutrophils/100 WBC (Bld) Manual blood segmented neutrophils/100 leukocytes Low 43.0-75.0 [facility] Serum or plasma albumin/glob ulin mass ratioon 11-01-2024 Albumin/Globulin [Mass ratio] Serum or plasma albumin/globulin mass ratio [facility] Serum or plasma anion gap de terminationon 11-01-2024 Anion gap [Moles/Vol] Serum or plasma an ion gap determination [facility] Serum or plasma total choles terol/high density lipoprotein (HDL) cholesterol mass faustino 11-01-2024 Cholesterol.total/Choles terol in HDL [Mass ratio] Serum or plasma total cholesterol/high density lipoprotein (HDL) cholesterol mass rat [facility] Comment on above: 3.3 - 4.4 LOW RISK4. 4 - 7.1 AVERAGE RISK7.1 - 11.0 MODERATE RISK>11.0 HIGH RISK Urine microalbumin/creatinin e mass ratioon 11-01-2024 Albumin/Creatinine DL <= 20 mg/L (U) [Mass ratio] Urine microalbumin/creatini ne mass ratio 0.0-29.9 [facility] Comment on above: NO MICROALBUMINURIA 0-29 MG/GCLINICAL MICROALBUMINURIA 30-300 MG/GMACROALBUMINURIA >300 MG/G Reminderson 09-15-2024 Reminders Reminders From: Lori Bledsoe To: EU - Administrative; Sent: 02/24/2024 10:44:10 EDT Show up: 06/25/2024 09:43:00 EST Subject: 6 MO F/U Due Date/Time: 08/26/2024 09:43:00 EST Reminder/Recall PT SEEN ON 02/24/2024 BY JINNY IN [place]. PT WILL NEED A 6 MO F/U. APPT DUE BY 08/26/2024 NO ANSWER Pt is scheduled for 02/14/25. Normal [facility] Laboratory - Chemistry and C hemistry - challengeon 09-03-2024 Bilirubin Ql (U) Negative NEGATIVE [facility] Glucose (U) [Mass/Vol] Negative NEGATIVE [facility] Ketones Ql (U) TRACE mg/dL Abnormal NEGATIVE [facility] pH (U) 5.5 [pH] 5.0-9.0 [facility] Specific gravity (U) [Rel density] 1.025 1.005-1.025 [facility] Urobilinogen Qn (U) 0.2 {Jose'U}/dL 0.2-1.0 [facility] Laboratory - Specimen inform ationon 09-03-2024 Appearance (U) CLEAR CLEAR [facility] Color (U) LT YELLOW YELLOW [facility] Laboratory - Urinalysison Leukocyte esterase Test strip Ql (U) Negative NEGATIVE [facility] Nitrite Ql (U) Negative NEGATIVE [facility] Protein Ql (U) TRACE mg/dL NEG/TRACE [facility] No Panel Informationon 09-03 Urine Occult Blood Negative NEGATIVE [facility] Urine Cultureon 09-03-2024 Bacteria identified Cx Nom (U) 75,000 colonies/ml mixed bacterial skin contaminants 2 Days PERFORMED BY: [facility] [address] [place] [address] PATHOLOGIST EMBLEM DRAWER IN IDA ARMIJO M.D. Normal [facility] Comment on above: Performed By: #### C UU #### [facility] [address] [id number] [facility] Ambulatory Visit Summaryon 0 08-16-2024 Ambulatory Visit Summary Ambulatory Visi t Summary KATHY WASHBURN :1940 Visit Date:08/16/2024 Ambulatory Visit Instructions Your Diagnosis Recurrent UTI Urgency incontinence Your Care Team Attending Physician - SUSAN RANDOLPH PA-C Primary Care Physician - Ayanna Vicente DO This Is Your Medications List estradiol topical (Estrace 0.1 mg/g Cream) Contact prescribing physician if questions or concerns acetaminophen-oxycodo ne (acetaminophen-oxycod one 325 mg-5 mg oral tablet) aspirin (aspirin 81 mg Oral EC Tab) atorvastatin (Lipitor 20 mg Tab) citalopram (CeleXA 40 mg Tab) ezetimibe (Zetia 10 mg Tab) furosemide (Lasix 20 mg Tab) hydrochlorothiazide-t riamterene (Maxzide-25 oral tablet) insulin glargine (Lantus Solostar Pen 100 units/mL subcutaneous solution) levothyroxine (Synthroid 100 mcg Tab) lisinopril (Zestril 10 mg Tab) metformin (metformin 1000 mg oral tablet, extended release) multivitamin (Vitamin B Complex oral capsule) multivitamin with minerals (Multivitamins and Minerals) pregabalin (Lyrica 225 mg oral capsule) propranolol (Inderal LA 60 mg Cap-ER) trospium (trospium 20 mg oral tablet) zolpidem (Ambien 10 mg Tab) Procedures Performed [...] hernia repair. Discharge Vitals Heart Rate (Peripheral) 69 Respiratory Rate 16 Blood Pressure 92/58 Height 178 cm Height 70 in Weight 103 kg Weight 227.076 lb BMI 32.51 What to do next Scheduled Follow-Up Appointments Friday 1:20 PM EDT With: SUSAN RANDOLPH PA-C Where: [facility] [address] [place] [address]- You Need to Schedule the Following Appointments Follow Up with SUSAN RANDOLPH PA-C, URL When: In 6 months Where: [address] [facility] [place] [address] Medications What How Much When Instructions New estradiol topical (Estrace 0.1 mg/ g Cream) See instructions Refills: 6 apply a pea-sized amount vaginally and around the urethra 3x per week for UTI prevention Pickup at [facility] Unchanged acetaminophen-oxycodo ne (acetaminophen-oxycod one 325 mg-5 [...] prescribing physician if questions or concerns Unchanged hydrochlorothiazide-t riamterene (Maxzide-25 oral tablet) 0.5 [...] prescribing physician if questions or concerns Unchanged trospium (trospium 20 mg oral tablet) 1 Tablets By Mouth 2 times a day Duration: 30 Days Contact prescribing physician if questions or concerns Unchanged zolpidem (Ambien 10 mg Tab) 1 Tablets By Mouth Once a day (at bedtime) as needed for for sleep Contact prescribing physician if questions or concerns Pharmacy Information [facility] (more content not included)... Normal [facility] Urology Office/Clinic Noteon 08-16-2024 Urology Office/Clinic Note Urology Office/Clinic Note Chief Complaint Frequent UTI HPI Staff 84 year old female patient her here for 6 month follow up. Previous Dx: OAB, Mixed Incontinence & Recurrent UTI *started trospium 20 mg bid last OV, d/c Oxybutynin Filled Cipro 7x in past 12 mos. PVR 50 ml Dysuria: last week felt some burning and last week on Friday started on cipro Incomplete bladder emptying: yes Hematuria: denies Frequency: once every 1-2 hours Urgency: yes Nocturia: once a night Stream: denies Leaking: yes Post void dripping: denies Wearing pads/ Depends: pads daily, changes them 6-7 x a day Urge incontinence: yes Stress incontinence: yes Incontinence without Sensory Awareness: denies Abdominal pain: denies Flank pain: has lower back pain but it is chronic Sexual complaints: _ Review of Systems PHQ Score Initial Depression Screen Score: 0 SCORE no fever, chills, malaise, myalgia. no rash/lesions. no chest pain, palpitations, or SOB. no abdominal pain, nausea, vomiting. Physical Exam Vitals & Measurements HR: 69(Peripheral) RR: 16 BP: 92/58 HT: 70 in HT: 178 cm WT: 103 kg WT: 227.076 lb BMI: 32.51 General: nontoxic, NAD Mouth: moist mucosa Lungs: normal respiratory effort Cardio: regular rate, good distal perfusion Abdomen: nondistended Neurologic: Grossly normal Skin: No rashes or suspicious lesions Assessment/Plan 1. Recurrent UTI (N39.0: Urinary tract infection, site not specified) Ext Pharm Review: Cipro filled all of the following times. All rx'd by Dr Vicente. 07/16/23 (10d) 10/17/23 (10d) Cx >100k MDRO E Coli (R-FQ!) 02/10/24 (5d) Cx - Enterococcus 10-25k (S-FQ) 03/17/24 (7d) 04/05/24 (10d) Cx 05/08/24 >100k Klebsiella (lopez-S) 06/18/24 (7d) 08/11/24 (7d) Cx >100k E Coli (lopez-S) A1c 10/17/23 - 8.5 05/06/24 - 8.4 GFR nl on multiple occasions 2023 Renal US 01/13/22 - no stones or obstruction. TODAY: Way too many UTIs. 8 in past 12 mos. Pt surprised by this I would have thought it was every 3-4 mos! On abx currently for UTI. PCP is checking UA once she finishes to ensure it clears. Today we discussed the following methods to decrease frequency of UTIs: 1) We discussed that there is evidence that herbal supplements may help - cranberry, probiotics, and d-mannose. 2) We will start pt on topical estrogen cream. Reasoning, side effects, risks/benefits discussed. Rx sent to pharmacy. 3) Improve/tighten glucose control. Pt advised to contact our office w all future UTI sx so we can monitor urine cx results, treat appropriately (may require extended course abx), and monitor frequency of infections. Pt advised if develops fever, severe flank pain, vomiting - needs to go to ER. If continues to get breakthrough UTIs, we will consider cystoscopy w possible UD. Ordered: 98117 Measure Post Void residual urine and/or bladder capacity by US- non-imaging Complex E&M Add on G2211 E&M of Est. Patient Moderate 30-39 Min 37252 Urnls Dip Stick Auto w/o Microscopy POC [id number] 2. Urgency incontinence (N39.41: Urge incontinence) S/p Botox 100u 08/30/21. Baird sxs only improved for a few weeks or so. Wasn't very impressed w improvement. Does not wish to repeat Botox. Failed Myrbetriq and Oxybutynin previously. TODAY: Using Trospium IR PRN when traveling or going out of the house. Helps a lot. Minimizes side effects by using PRN. Pleased w current situation. Does not wish to change anything. Ordered: Complex E&M Add on G2211 E&M of Est. Patient Moderate 30-39 Min 44837 Orders: estradiol topical, See Instructions, 42.5 gm, Refill(s) 6, apply a pea-sized amount vaginally and around the urethra 3x per week for UTI prevention, [facility], 178, cm, 08/16/24 9:10:00 EST, Height/Length Dosing, 103, kg, 08/16/24 9:10:00 EST, Weight Do... Follow-up With When Contact Information SUSAN RANDOLPH PA-C, URL In 6 months [address] [place] [address] Additional Instructions: Patient Education Antibiotic Medicine, Adult Problem List/Past Medical History Ongoing Arthritis Depression Fibromyalgia Headache Hyperlipidemia Hypertension Hypothyroidism Insomnia Lumbar pain Lung nodule Neuropathy Overactive bladder Peripheral edema Recurrent UTI Rheumatism Sacroiliac dysfunction Stress incontinence Type 2 diabetes mellitus Urgency incontinence Historical No qualifying data Procedure/Surgical History Injection [...] of hernia repair. Medications acetaminophen-oxycodo ne 325 (more content not included)... [facility] Comment on above: Result Comment: Elec tronically Signed By: SUSAN RANDOLPH PA-C\.br\Date and Time Signed: 08/16/24 10:05 EST Appearance of UrineOrdered B y: Ayanna Vicente on 08-10-2024 Appearance (U) Urine appearance Abnormal Clear [facility] Bacteria [Presence] in Urine by AutomatedOrdered By: Ayanna Vicente on 08-10-2024 Bacteria Auto Ql (U) Bacteria [Presence] in Urine by Automated None Seen [facility] Bilirubin Test strip Ql (U)O rdered By: Ayanna Vicente on 08-10-2024 Bilirubin Ql (U) Bilirubin.total [Presence] in Urine by Test strip Negative [facility] Color Auto (U)Ordered By: Vasile Vicente on 08-10-2024 Color (U) Color of Urine by Auto Abnormal Yellow [facility] Dipstick and Microscopicon 0 08-10-2024 Appearance (U) Cloudy Critically abnormal Clear [facility] Comment on above: Order Comment: Name Collection Type:: Clean-Voided Midstream Performed By: #### A DDONUAPLUS, CUU #### [place] [address] [place] Bacteria,Urine None Seen Normal None Seen [facility] Comment on above: Order Comment: Name Collection Type:: Clean-Voided Midstream Performed By: #### A DDONUAPLUS, CUU #### [place] [address] [place] Bilirubin,Urine Negative Normal Negative [facility] Comment on above: Order Comment: Name Collection Type:: Clean-Voided Midstream Performed By: #### A DDONUAPLUS, CUU #### [place] [address] [place] Color (U) Dark-Yellow Critically abnormal Yellow [facility] Comment on above: Order Comment: Name Collection Type:: Clean-Voided Midstream Performed By: #### A DDONUAPLUS, CUU #### [place] [address] [place] Glucose Ql (U) Normal Normal Normal [facility] Comment on above: Order Comment: Name Collection Type:: Clean-Voided Midstream Performed By: #### A DDONUAPLUS, CUU #### [place] [address] [place] Hyaline Casts,Urine 0 [LPF] Normal 0-8 [facility] Comment on above: Order Comment: Name Collection Type:: Clean-Voided Midstream Performed By: #### A DDONUAPLUS, CUU #### [address] [address] [place] Ketones Ql (U) Negative Normal Negative [facility] Comment on above: Order Comment: Name Collection Type:: Clean-Voided Midstream Performed By: #### A DDONUAPLUS, CUU #### [address] Leukocyte esterase Test strip Ql (U) 4+ High Negative [facility] Comment on above: Order Comment: Name Collection Type:: Clean-Voided Midstream Performed By: #### A DDONUAPLUS, CUU #### [address] Mucus,Urine Rare Normal [facility] Comment on above: Order Comment: Name Collection Type:: Clean-Voided Midstream Result Comment: PERF ORMED BY: [place] [address] PATHOLOGIST EMBLEM DRAWER IN IDA ARMIJO M.D. Performed By: #### A DDONUAPLUS, CUU #### [address] Nitrite,Urine Positive High Negative [facility] Comment on above: Order Comment: Name Collection Type:: Clean-Voided Midstream Performed By: #### A DDONUAPLUS, CUU #### [address] Occult Blood,Urine Negative Normal Negative [facility] Comment on above: Order Comment: Name Collection Type:: Clean-Voided Midstream Result Comment: PERF ORMED BY: [place] [address] PATHOLOGIST EMBLEM DRAWER IN IDA ARMIJO M.D. Performed By: #### A DDONUAPLUS, CUU #### [place] [address] [place] pH (U) 6.0 [pH] Normal 5.0-9.0 [facility] Comment on above: Order Comment: Name Collection Type:: Clean-Voided Midstream Performed By: #### A DDONUAPLUS, CUU #### [address] Protein (U) [Mass/Vol] 30 mg/dL High Negative Th e [facility] Comment on above: Order Comment: Name Collection Type:: Clean-Voided Midstream Performed By: #### A DDONUAPLUS, CUU #### [address] RBC,Urine 1 [HPF] Normal 0-4 [facility] Comment on above: Order Comment: Name Collection Type:: Clean-Voided Midstream Performed By: #### A DDONUAPLUS, CUU #### [address] Specificy [place],Urine 1.022 Normal 1.001-1.030 [facility] Comment on above: Order Comment: Name Collection Type:: Clean-Voided Midstream Performed By: #### A DDONUAPLUS, CUU #### [address] Squamous Epithelial Cell,Urine 1 [HPF] Normal 0-2 [facility] Comment on above: Order Comment: Name Collection Type:: Clean-Voided Midstream Performed By: #### A DDONUAPLUS, CUU #### [address] Urobilinogen,Urine Normal Normal Normal [facility] Comment on above: Order Comment: Name Collection Type:: Clean-Voided Midstream Performed By: #### A DDONUAPLUS, CUU #### [address] WBC CLUMP, Urine Many High None Seen [facility] Comment on above: Order Comment: Name Collection Type:: Clean-Voided Midstream Performed By: #### A DDONUAPLUS, CUU #### [address] WBC,Urine Innumerable High 0-4 [facility] Comment on above: Order Comment: Name Collection Type:: Clean-Voided Midstream Performed By: #### A DDONUAPLUS, CUU #### [address] [place] [address] [facility] Epithelial cells.squamous [# /area] in Urine sediment by Automated countOrdered By: Ayanna Vicente on 08-10-2024 Epithelial cells.squamous Auto (Urine sed) [#/Area] Epithelial cells.squamous [#/area] in Urine sediment by Automated count 0-2 [facility] Erythrocytes [#/area] in Uri ne sediment by Automated countOrdered By: Ayanna Vicente on 08-10-2024 RBC Auto (Urine sed) [#/Area] Erythrocytes [#/area] in Urine sediment by Automated count 0-4 [facility] Glucose [Mass/volume] in Uri ne by Test stripOrdered By: Ayanna Vicente on 08-10-2024 Glucose Test strip (U) [Mass/Vol] Glucose [Mass/volume] in Urine by Test strip Normal [facility] Hemoglobin Test strip Ql (U) Ordered By: Ayanna Vicente on 08-10-2024 Hemoglobin Ql (U) Hemoglobin [Presence ] in Urine by Test strip Negative [facility] Hyaline casts [#/area] in Ur ine sediment by Automated countOrdered By: Ayanna Vicente on 08-10-2024 Hyaline casts Auto (Urine sed) [#/Area] Hyaline casts [#/area] in Urine sediment by Automated count 0-8 [facility] Ketones Test strip Ql (U)Ord ered By: Ayanna Vicente on 08-10-2024 Ketones Ql (U) Ketones [Presence] i n Urine by Test strip Negative [facility] Leukocyte clumps [Presence] in Urine by AutomatedOrdered By: Ayanna Vicente on 08-10-2024 Leukocyte clumps Auto Ql (U) Leukocyte clumps [Presence] in Urine by Automated High None Seen [facility] Leukocyte esterase [Presence ] in Urine by Test stripOrdered By: Ayanna Vicente on 08-10-2024 Leukocyte esterase Test strip Ql (U) Leukocyte esterase [Presence] in Urine by Test strip High Negative [facility] Leukocytes [#/area] in Urine sediment by Automated countOrdered By: Ayanna Vicente on 08-10-2024 WBC Auto (Urine sed) [#/Area] Leukocytes [#/area] in Urine sediment by Automated count High 0-4 [facility] Mucus [Presence] in Urine by AutomatedOrdered By: Ayanna Vicente on 08-10-2024 Mucus Auto Ql (U) Mucus [Presence] in Urine by Automated [facility] Nitrite Test strip Ql (U)Ord ered By: Ayanna Vicente on 08-10-2024 Nitrite Ql (U) Nitrite [Presence] i n Urine by Test strip High Negative [facility] Protein Test strip (U) [Mass /Vol]Ordered By: Ayanna Vicnete on 08-10-2024 Protein (U) [Mass/Vol] Protein [Mass/vol ume] in Urine by Test strip High Negative [facility] Specific gravity Test strip (U) [Rel density]Ordered By: Ayanna Vicente on 08-10-2024 Specific gravity (U) [Rel density] Specific gravity of Urine by Test strip 1.001-1.030 [facility] Urine Cultureon 08-10-2024 Bacteria identified Cx Nom (U) ORGANISM: Escherichia coli (O:ESCCOL) [place] Count >100,000 Aerobic CORNELIA Charge (NMIC56) ---- SUSCEPTIBILITY --- ORGANISM: O:ESCCOL ANTIBIOTIC INTERPRETATION CORNELIA Amikacin S <16 Amoxacillin/K Clavulanate S <8 Ampicillin S <8 Ampicillin/Sulbactam S <4 Aztreonam S <4 Cefazolin S <2 Cefepime S <2 Ceftazidime S <1 Ceftazidime/Avibactam S <4 Ceftolozane/Tazobacta m S <2 Ceftriaxone S <1 Cefuroxime S <4 Ciprofloxacin S <0.25 Ertapenem S <0.5 Gentamicin S <2 Levofloxacin S <0.5 Meropenem S <1 Meropenem/Vaborbactam S <2 Nitrofurantoin [...] RESISTANT TO ALL B-LACTAM DRUGS. PERFORMED BY: [facility] [address] [place] [address] PATHOLOGIST EMBLEM DRAWER IN IDA ARMIJO M.D. Normal [facility] Comment on above: Performed By: #### A DDONUAJEFF, CUU #### [facility] [address] Urine cultureOrdered By: Aftab Vicente on 08-10-2024 Bacteria identified Cx Nom (U) Escherichia coli Abnormal [facility] Urobilinogen Test strip (U) [Mass/Vol]Ordered By: Ayanna Vicente on 08-10-2024 Urobilinogen (U) [Mass/Vol] Urobilinogen [Mass/volume] in Urine by Test strip Normal [facility] pH Test strip (U)Ordered By: Ayanna Vicente on 08-10-2024 pH (U) pH of Urine by Test strip 5.0-9.0 [facility] ALL THYROID STIM HORMONEon 1 08-23-2023 TSH Qn 2.632 m[IU]/L [facility] Estimated glomerular filtrat ion rate (GFR) non- Americanon 06-22-2024 GFR/1.73 sq M.predicted among non-blacks MDRD (S/P/Bld) [Vol rate/Area] Estimated glomerular filtration rate (GFR) non- Low >=60 mL/min/1.73 m 2 [facility] Laboratory - Chemistry and C hemistry - challengeon 06-22-2024 Calcium [Mass/Vol] 9.2 mg/dL 8.5-10.1 [facility] Chloride [Moles/Vol] 105 mmol/L 98-107 [facility] CO2 [Moles/Vol] 30.0 mmol/L 21.0-32.0 [facility] Cobalamin (Vitamin B12) [Mass/Vol] 721 pg/mL 232-1245 [facility] Comment on above: Performed at: [facility] [address] [id number] Director: Narinder Elam PhD, Phone: [phone] Creatinine [Mass/Vol] 1.36 mg/dL High 0.55-1.02 [facility] GFR/1.73 sq M.predicted MDRD (S/P/Bld) [Vol rate/Area] 45 mL/min/{1.73_m2} Low >=60 mL/min/1.73 m 2 [facility] Glucose [Mass/Vol] 125 mg/dL High 74-106 [facility] Potassium [Moles/Vol] 4.8 mmol/L 3.5-5.1 [facility] Sodium [Moles/Vol] 141 mmol/L 136-145 [facility] TSH Qn 2.632 m[IU]/L 0.358-3.740 [facility] Urea nitrogen [Mass/Vol] 28.0 mg/dL High 7.0-18.0 [facility] Urea nitrogen/Creatinine [Mass ratio] 20.6 mg/mg [facility] Serum or plasma anion gap de terminationon 06-22-2024 Anion gap [Moles/Vol] Serum or plasma an ion gap determination [facility] Basophils/100 WBC Manual cnt (Bld)on 06-15-2024 Basophils/100 WBC (Bld) Basophils/100 leukocytes in Blood by Manual count 0.2-2.0 [facility] Eosinophils/100 WBC Manual c nt (Bld)on 06-15-2024 Eosinophils/100 WBC (Bld) Eosinophils/100 leukocytes in Blood by Manual count 0.9-7.0 [facility] Erythrocyte distribution wid th Auto (RBC) [Ratio]on 06-15-2024 Erythrocyte distribution width (RBC) [Ratio] Erythrocyte distribution width [Ratio] by Automated count 11.0-15.0 [facility] Estimated glomerular filtrat ion rate (GFR) non- Americanon 06-15-2024 GFR/1.73 sq M.predicted among non-blacks MDRD (S/P/Bld) [Vol rate/Area] Estimated glomerular filtration rate (GFR) non- Low >=60 mL/min/1.73 m 2 [facility] Globulin Calc (S) [Mass/Vol] on 06-15-2024 Globulin (S) [Mass/Vol] Serum globulin measurement by calculation (mass/volume) [facility] Hematocrit Auto (Bld) [Volum e fraction]on 06-15-2024 Hematocrit (Bld) [Volume fraction] Hematocrit [Volume Fraction] of Blood by Automated count 36.0-48.0 [facility] Hemoglobin [Mass/volume] in Bloodon 06-15-2024 Hemoglobin (Bld) [Mass/Vol] Hemoglobin [Mass/volume] in Blood 12.0-16.0 [facility] Curt 06-15-2024 L - -------- Specimen: [id number] Received: 06/16/24 Status: JEFFERY More Num: [id number] Spec Type: Impression Subm Dr: Tri Ag DO Tissues: PATHPER Procedures: PATHREVIEW -------- Age/ Patient Sex Location Account Attending Physician -------- Maddison,Kathy Chester 83/F [facility] [id number] Tri Ag DO -------- SPEC NUM: [id number] RECD: 06/16/24 STATUS: JEFFERY ION NUM: [id number] JESSICA: 06/15/24- DR: Tri Ag DO ENTERED: 06/16/[address] [facility] [address]: Angi Astudillo SPEC TYPE: Impression DEPT: [facility] Lance ENTERED BY: [id number] RECV BY: [id number] ORDERED: PATHREVIEW ORDERED: PATHREVIEW Pathologist Review Peripheral blood smear evaluation: - Severe lymphocytosis with atypical lymphocytes and smudges consistent with CLL, flow cytometry if clinically indicated. - Red blood cell and Platelet: Unremarkable. CPT: 48355 Jose Angel Kc MD 06/16/24 -------- -------- Specimen: [id number] Received: 06/16/24 Status: SOUSantana More Num: [id number] Spec Type: Impression Subm Dr: Tri Ag DO Tissues: PATHPER Procedures: PATHREVIEW -------- Patient: Kathy Washburn [id number] (Continued) -------- Signed (signature on file) Jose Angel Kc MD 06/16/24 1635 Normal [facility] Laboratory - Chemistry and C hemistry - challengeon 06-15-2024 Albumin [Mass/Vol] 3.5 g/dL 3.4-5.0 [facility] ALP [Catalytic activity/Vol] 103 U/L 46-116 [facility] ALT [Catalytic activity/Vol] 34 U/L 14-59 [facility] AST [Catalytic activity/Vol] 25 U/L 15-37 [facility] Bilirubin [Mass/Vol] 0.3 mg/dL 0.2-1.0 [facility] Calcium [Mass/Vol] 9.1 mg/dL 8.5-10.1 [facility] Chloride [Moles/Vol] 108 mmol/L High 98-107 [facility] CO2 [Moles/Vol] 28.4 mmol/L 21.0-32.0 [facility] Creatinine [Mass/Vol] 1.42 mg/dL High 0.55-1.02 [facility] GFR/1.73 sq M.predicted MDRD (S/P/Bld) [Vol rate/Area] 43 mL/min/{1.73_m2} Low >=60 mL/min/1.73 m 2 [facility] Glucose [Mass/Vol] 140 mg/dL High 74-106 [facility] Potassium [Moles/Vol] 4.3 mmol/L 3.5-5.1 [facility] Protein [Mass/Vol] 6.9 g/dL 6.4-8.2 [facility] Sodium [Moles/Vol] 143 mmol/L 136-145 [facility] Urea nitrogen [Mass/Vol] 31.0 mg/dL High 7.0-18.0 [facility] Urea nitrogen/Creatinine [Mass ratio] 21.8 mg/mg [facility] Laboratory - Hematology and Cell countson 06-15-2024 Lymphocytes/100 WBC (Bld) 54.0 % 20.5-60.0 [facility] Monocytes/100 WBC (Bld) 0.0 % Low 1.7-12.0 [facility] Leukocytes [#/volume] correc andreina for nucleated erythrocytes in Blood by Automated counon 06-15-2024 WBC corrected for nucl RBC Auto (Bld) [#/Vol] Leukocytes [#/volume] corrected for nucleated erythrocytes in Blood by Automated coun High 4.0-11.0 [facility] MCH Auto (RBC) [Entitic mass ]on 06-15-2024 MCH (RBC) [Entitic mass] MCH [Entitic ma ss] by Automated count 26.7-34.0 [facility] MCHC Auto (RBC) [Mass/Vol]on 06-15-2024 MCHC (RBC) [Mass/Vol] MCHC [Mass/volume] by Automated count 29.9-35.2 [facility] MCV Auto (RBC) [Entitic vol] on 06-15-2024 MCV (RBC) [Entitic vol] MCV [Entitic vol ume] by Automated count 81.0-99.0 [facility] No Panel Informationon 06-15 Absolute Basophils (Manual) 0.22 10 3/uL High 0.00-0.10 [facility] Add Manual Differential See comment [facility] Comment on above: SEE SCANNED REPORT Eosinophils # (Manual) 0.44 10 3/uL 0.00-0.70 [facility] Lymphocytes # (Manual) 11.88 10 3/uL High 1.20-3.80 [facility] Monocytes # (Manual) 0.00 10 3/uL Low 0.30-0.80 [facility] Reactive Lymphocytes 1.76 [facility] Reactive Lymphocytes 8.0 % [facility] Segmented Neutrophils # (Manual) 7.70 10 3/uL High 1.4-6.5 [facility] Platelet mean volume Auto (B ld) [Entitic vol]on 06-15-2024 Platelet mean volume (Bld) [Entitic vol] Platelet mean volume [Entitic volume] in Blood by Automated count 9.5-13.5 [facility] Platelets Auto (Bld) [#/Vol] on 06-15-2024 Platelets (Bld) [#/Vol] Platelets [#/vol ume] in Blood by Automated count 150-450 [facility] RBC Auto (Bld) [#/Vol]on RBC (Bld) [#/Vol] Erythrocytes [#/volume] in Blood by Automated count 4.20-5.40 [facility] Segmented neutrophils/100 WB C Manual cnt (Bld)on 06-15-2024 Segmented neutrophils/100 WBC (Bld) Manual blood segmented neutrophils/100 leukocytes Low 43.0-75.0 [facility] Serum or plasma albumin/glob ulin mass ratioon 06-15-2024 Albumin/Globulin [Mass ratio] Serum or plasma albumin/globulin mass ratio [facility] Serum or plasma anion gap de terminationon 06-15-2024 Anion gap [Moles/Vol] Serum or plasma an ion gap determination [facility] Smudge cell detectionon Smudge cells LM Ql (Bld) Smudge cell detection [facility] Basophils Auto (Bld) [#/Vol] on 05-26-2024 Basophils (Bld) [#/Vol] Automated basoph il count <0.11 [facility] Basophils/100 WBC Auto (Bld) on 05-26-2024 Basophils/100 WBC (Bld) Automated basophil % [facility] Blood manual differential co mment interpretation narrativeon 05-26-2024 Manual differential comment Himanshu (Bld) [Interp] Blood manual differential comment interpretation narrative [facility] CBC W Auto Differential pane l (Bld)on 05-26-2024 Basophils (Bld) [#/Vol] 0.00 10*3/uL Normal <0.11 [facility] [facility] Comment on above: Order Comment: Speci men Type: BLOOD SPECIMEN Ordering Facility: [facility] Address: [address] [place] [address] Performed By: #### 5 7021-8 #### [facility] CLIA [id number] [address] [place] [address] LAB CLIA [id number] [address] [place] [address] [place] Basophils/100 WBC (Bld) 0.0 % Normal C [facility] Comment on above: Order Comment: Speci men Type: BLOOD SPECIMEN Ordering Facility: [facility] Address: [address] [place] [address] Performed By: #### 5 7021-8 #### [facility] CLIA [id number] [address] [place] [address] LAB CLIA [id number] [address] [place] [address] [place] Differential cell count method Nom (Bld) Manual Normal [facility] Comment on above: Order Comment: Speci men Type: BLOOD SPECIMEN Ordering Facility: [facility] Address: [address] [place] [address] Performed By: #### 5 7021-8 #### [facility] CLIA [id number] [address] [place] [address] LAB CLIA [id number] [address] [place] [address] [place] Eosinophils (Bld) [#/Vol] 0.19 10*3/uL Normal <0.46 [facility] Comment on above: Order Comment: Speci men Type: BLOOD SPECIMEN Ordering Facility: [facility] Address: [address] [place] [address] Performed By: #### 5 7021-8 #### [facility] CLIA [id number] [address] [place] [address] LAB CLIA [id number] [address] [place], [place] [address] [place] Eosinophils/100 WBC (Bld) 1.0 % Normal [facility] Comment on above: Order Comment: Speci men Type: BLOOD SPECIMEN Ordering Facility: [facility] Address: [address] [place] [address] Performed By: #### 5 7021-8 #### [facility] CLIA [id number] [address] [place] [address] LAB CLIA [id number] [address] [place] [address] [place] Erythrocyte distribution width (RBC) [Ratio] 14.2 % Normal 11.5-15.0 [facility] Comment on above: Order Comment: Speci men Type: BLOOD SPECIMEN Ordering Facility: [facility] Address: [address] [place] [address] Performed By: #### 5 7021-8 #### [facility] CLIA [id number] [address] [place] [address] LAB CLIA [id number] [address] [place] [address] [place] Hematocrit (Bld) [Volume fraction] 38.4 % Normal 36.0-46.0 [facility] Comment on above: Order Comment: Speci men Type: BLOOD SPECIMEN Ordering Facility: [facility] Address: [address] [place] [address] Performed By: #### 5 7021-8 #### [facility] CLIA [id number] [address] [place] [address] LAB CLIA [id number] [address] [place] [address] [place] Hemoglobin (Bld) [Mass/Vol] 12.7 g/dL Normal 11.5-15.5 [facility] Comment on above: Order Comment: Speci men Type: BLOOD SPECIMEN Ordering Facility: [facility] Address: [address] [place] [address] Performed By: #### 5 7021-8 #### [facility] CLIA [id number] [address] [place] [address] LAB CLIA [id number] [address] [place] [address] [place] Lymphocytes (Bld) [#/Vol] 14.61 10*3/uL High 1.00-4.00 [facility] Comment on above: Order Comment: Speci men Type: BLOOD SPECIMEN Ordering Facility: [facility] Address: [address] [place] [address] Performed By: #### 5 7021-8 #### [facility] CLIA [id number] [address] [place] [address] LAB CLIA [id number] [address] [place] [address] [place] Lymphocytes/100 WBC (Bld) 76.0 % Normal [facility] Comment on above: Order Comment: Speci men Type: BLOOD SPECIMEN Ordering Facility: [facility] Address: [address] [place] [address] Performed By: #### 5 7021-8 #### [facility] CLIA [id number] [address] [place] [address] LAB CLIA [id number] [address] [place] [address] [place] MCH (RBC) [Entitic mass] 30.0 pg Normal 26.0-34.0 [facility] Comment on above: Order Comment: Speci men Type: BLOOD SPECIMEN Ordering Facility: [facility] Address: [address] [place] [address] Performed By: #### 5 7021-8 #### [facility] CLIA [id number] [address] [place] [address] LAB CLIA [id number] [address] [place] [address] [place] MCHC (RBC) [Mass/Vol] 33.1 g/dL Normal 30.5-36.0 [facility] Comment on above: Order Comment: Speci men Type: BLOOD SPECIMEN Ordering Facility: [facility] Address: [address] [place] [address] Performed By: #### 5 7021-8 #### [facility] CLIA [id number] [address] [place] [address] LAB CLIA [id number] [address] [place] [address] [place] MCV (RBC) [Entitic vol] 90.8 fL Normal 80.0-100.0 [facility] Comment on above: Order Comment: Speci men Type: BLOOD SPECIMEN Ordering Facility: [facility] Address: [address] [place] [address] Performed By: #### 5 7021-8 #### [facility] CLIA [id number] [address] [place] [address] LAB CLIA [id number] [address] [place] [address] [place] Monocytes (Bld) [#/Vol] 0.19 10*3/uL Normal <0.87 [facility] Comment on above: Order Comment: Speci men Type: BLOOD SPECIMEN Ordering Facility: [facility] Address: [address] [place] [address] Performed By: #### 5 7021-8 #### [facility] CLIA [id number] [address] [place] [address] LAB CLIA [id number] [address] [place], [place] [address] [place] Monocytes/100 WBC (Bld) 1.0 % Normal [facility] Comment on above: Order Comment: Speci men Type: BLOOD SPECIMEN Ordering Facility: [facility] Address: [address] [place] [address] Performed By: #### 5 7021-8 #### [facility] CLIA [id number] [address] [place] [address] LAB CLIA [id number] [address] [place] [address] [place] Neutrophils (Bld) [#/Vol] 4.23 10*3/uL Normal 1.45-7.50 [facility] Comment on above: Order Comment: Speci men Type: BLOOD SPECIMEN Ordering Facility: [facility] Address: [address] [place] [address] Performed By: #### 5 7021-8 #### [facility] CLIA [id number] [address] [place] [address] LAB CLIA [id number] [address] [place] [address] [place] Neutrophils/100 WBC (Bld) 22.0 % Normal [facility] Comment on above: Order Comment: Speci men Type: BLOOD SPECIMEN Ordering Facility: [facility] Address: [address] [place] [address] Performed By: #### 5 7021-8 #### [facility] CLIA [id number] [address] [place] [address] LAB CLIA [id number] [address] [place] [address] [place] Nucleated RBC (Bld) [#/Vol] 10*3/uL Normal <0.01 [facility] Comment on above: Order Comment: Speci men Type: BLOOD SPECIMEN Ordering Facility: [facility] Address: [address] [place] [address] Performed By: #### 5 7021-8 #### [facility] CLIA [id number] [address] [place] [address] LAB CLIA [id number] [address] [place] [address] [place] Nucleated RBC/100 WBC (Bld) [Ratio] 0.0 /100 WBC Normal [facility] Comment on above: Order Comment: Speci men Type: BLOOD SPECIMEN Ordering Facility: [facility] Address: [address] [place] [address] Performed By: #### 5 7021-8 #### [facility] CLIA [id number] [address] [place] [address] LAB CLIA [id number] [address] [place] [address] [place] Ovalocytes LM Ql (Bld) Few Normal [facility] Comment on above: Order Comment: Speci men Type: BLOOD SPECIMEN Ordering Facility: [facility] Address: [address] [place] [address] Performed By: #### 5 7021-8 #### [facility] CLIA [id number] [address] [place] [address] LAB CLIA [id number] [address] [place] [address] [place] Platelet mean volume (Bld) [Entitic vol] 10.4 fL Normal 9.0-12.7 [facility] Comment on above: Order Comment: Speci men Type: BLOOD SPECIMEN Ordering Facility: [facility] Address: [address] [place] [address] Performed By: #### 5 7021-8 #### [facility] CLIA [id number] [address] [place] [address] LAB CLIA [id number] [address] [place] [address] [place] Platelets (Bld) [#/Vol] 244 10*3/uL Normal 150-400 [facility] Comment on above: Order Comment: Speci men Type: BLOOD SPECIMEN Ordering Facility: [facility] Address: [address] [place] [address] Performed By: #### 5 7021-8 #### [facility] CLIA [id number] [address] [place] [address] LAB CLIA [id number] [address] [place] [address] [place] Platelets Estimate (Bld) [#/Vol] Adequate Normal [facility] Comment on above: Order Comment: Speci men Type: BLOOD SPECIMEN Ordering Facility: [facility] Address: [address] [place] [address] Performed By: #### 5 7021-8 #### [facility] CLIA [id number] [address] [place] [address] LAB CLIA [id number] [address] [place] [address] [place] Polychromasia LM Ql (Bld) Slight Normal [facility] Comment on above: Order Comment: Speci men Type: BLOOD SPECIMEN Ordering Facility: [facility] Address: [address] [place] [address] Performed By: #### 5 7021-8 #### [facility] CLIA [id number] [address] [place] [address] LAB CLIA [id number] [address] [place] [address] [place] RBC (Bld) [#/Vol] 4.23 10*6/uL Normal 3.90-5.20 [facility] Comment on above: Order Comment: Speci men Type: BLOOD SPECIMEN Ordering Facility: [facility] Address: [address] [place] [address] Performed By: #### 5 7021-8 #### [facility] CLIA [id number] [address] [place] [address] LAB CLIA [id number] [address] [place] [address] [place] RED CELL MORPH Reviewed: see result s of individual morphologies Normal [facility] Comment on above: Order Comment: Speci men Type: BLOOD SPECIMEN Ordering Facility: [facility] Address: [address] [place] [address] Performed By: #### 5 7021-8 #### [facility] CLIA [id number] [address] [place] [address] LAB CLIA [id number] [address] [place] [address] [place] WBC (Bld) [#/Vol] 19.22 10*3/uL High 3.70-11.00 [facility] Comment on above: Order Comment: Speci men Type: BLOOD SPECIMEN Ordering Facility: [facility] Address: [address] [place] [address] Result Comment: No c lot detected.Results checked and verified. Performed By: #### 5 7021-8 #### [facility] CLIA [id number] [address] [place] [address] LAB CLIA [id number] [address] [place] [address] [place] CNOVSPon 05-26-2024 CNOVSP Visit (SP) Office ([facility]) KATHY WASHBURN ([id number]) 1940 F Date Time Provider Department 05/26/24 2:00 PM CHAD FREITAS During your visit today, we recorded the following information about you: Temperature Pulse Respiration Blood pressure 97 degrees 70/minute 16/minute 92/51 Weight Height 105.3 kg 1.727 m Vennepureddy, Chad, MD 05/26/2024 2:41 PM Signed PATIENT NAME: Kathy Washburn CLINIC NO.: [id number] ATTENDING PHYSICIAN: Chad Freitas MD DATE OF [...] sweats - Did mammogram last week at [facility]. - Scheduled to see Registered Nurse Renal PAST MEDICAL HISTORY Diagnosis Date Depression Diabetes [...] Status 05/26 (more content not included)... Normal [facility] Comprehensive metabolic 2000 panelOrdered By: Malka Galvez on 05-26-2024 Albumin [Mass/Vol] 4.1 g/dL 3.9 - 4.9 g/dL [facility] ALP [Catalytic activity/Vol] 107 U/L 34 - 123 U/L [facility] ALT [Catalytic activity/Vol] 21 U/L 7 - 38 U/L [facility] Anion gap [Moles/Vol] 11 mmol/L 8 - 15 mmol/L [facility] AST [Catalytic activity/Vol] 23 U/L 13 - 35 U/L [facility] Bilirubin [Mass/Vol] 0.2 mg/dL 0.2 - 1 .3 mg/dL [facility] Calcium [Mass/Vol] 9.3 mg/dL 8.5 - 10. 2 mg/dL [facility] Chloride [Moles/Vol] 105 mmol/L 98 - 10 7 mmol/L [facility] CO2 [Moles/Vol] 26 mmol/L 22 - 30 mmol/L [facility] Creatinine [Mass/Vol] 1.20 mg/dL High 0.58 - 0.96 mg/dL [facility] GFR/1.73 sq M.predicted among non-blacks MDRD (S/P/Bld) [Vol rate/Area] 46 mL/min/{1.73_m2} Low - PINF [facility] Comment on above: Estimated Glomerular Filtration Rate [...] 231 mg/dL High 74 - 99 mg/dL [facility] Comment on above: [place] Diabete s Association (ADA) provides guidance for [...] Medical Care in Diabetes 2016, [place] Diabetes Association. Diabetes Care. 2016.39(Suppl 1). Interpretation and review of laboratory results Abnormal [facility] Potassium [Moles/Vol] 5.3 mmol/L High 3.7 - 5.1 mmol/L [facility] Protein [Mass/Vol] 6.9 g/dL 6.3 - 8.0 g/dL [facility] Sodium [Moles/Vol] 142 mmol/L 136 - 144 mmol/L [facility] Urea nitrogen [Mass/Vol] 36 mg/dL High 7 - 21 mg/dL [facility] Comprehensive metabolic 2000 panelon 05-26-2024 Albumin [Mass/Vol] 4.1 g/dL Normal 3.9-4.9 [facility] Comment on above: Order Comment: Ha oropeza Type: BLOOD SPECIMEN Ordering Facility: [facility] Address: [address] [place] [address] Performed By: #### 2 532-0, 80894-1 #### [facility] CLIA [id number] [address] [place] [address] ALP [Catalytic activity/Vol] 107 U/L Normal 34-123 [facility] Comment on above: Order Comment: Ha oropeza Type: BLOOD SPECIMEN Ordering Facility: [facility] Address: [address] [place] [address] Performed By: #### 2 532-0, 87761-7 #### [facility] CLIA [id number] [address] [place] [address]66 ALT [Catalytic activity/Vol] 21 U/L Normal 7-38 [facility] Comment on above: Order Comment: Speci men Type: BLOOD SPECIMEN Ordering Facility: [facility] Address: [address] [place] [address] Performed By: #### 2 532-0, #### [facility] CLIA [id number] [address] [place] [address] Anion gap [Moles/Vol] 11 mmol/L Normal 8-15 [facility] Comment on above: Order Comment: Speci men Type: BLOOD SPECIMEN Ordering Facility: [facility] Address: [address] [place] [address] Performed By: #### 2 532-0, #### [facility] CLIA [id number] [address] [place] [address] AST [Catalytic activity/Vol] 23 U/L Normal 13-35 [facility] Comment on above: Order Comment: Speci men Type: BLOOD SPECIMEN Ordering Facility: [facility] Address: [address] [place] [address] Performed By: #### 2 532-0, #### [facility] CLIA [id number] [address] [place] [address]48 Bilirubin [Mass/Vol] 0.2 mg/dL Normal 0.2-1.3 [facility] Comment on above: Order Comment: Speci men Type: BLOOD SPECIMEN Ordering Facility: [facility] Address: [address] [place] [address] Performed By: #### 2 532-0, 05147-8 #### [facility] CLIA [id number] [address] [place] [address] Calcium [Mass/Vol] 9.3 mg/dL Normal 8.5-10.2 [facility] Comment on above: Order Comment: Speci men Type: BLOOD SPECIMEN Ordering Facility: [facility] Address: [address] [place] [address] Performed By: #### 2 532-0, 05603-8 #### [facility] CLIA [id number] [address] [place] [address]391 Chloride [Moles/Vol] 105 mmol/L Normal 98-107 [facility] Comment on above: Order Comment: Speci men Type: BLOOD SPECIMEN Ordering Facility: [facility] Address: [address] [place] [address] Performed By: #### 2 532-0, #### [facility] CLIA [id number] [address] [place] [address]67 CO2 [Moles/Vol] 26 mmol/L Normal 22-30 [facility] Comment on above: Order Comment: Speci men Type: BLOOD SPECIMEN Ordering Facility: [facility] Address: [address] [place] [address] Performed By: #### 2 532-0, 88700-0 #### [facility] CLIA [id number] [address] [place] [address]1880 Creatinine [Mass/Vol] 1.20 mg/dL High 0.58-0.96 [facility] Comment on above: Order Comment: Speci men Type: BLOOD SPECIMEN Ordering Facility: [facility] Address: [address] [place] [address] Performed By: #### 2 532-0, 33824-9 #### [facility] CLIA [id number] [address] [place] [address] 71487 Creatinine and Glomerular filtration rate.predicted panel (S/P/Bld) 46 mL/min/1.73m??? Low >=60 [facility] Comment on above: Order Comment: Speci men Type: BLOOD SPECIMEN Ordering Facility: [facility] Address: [address] [place] [address] Result Comment: Aimee mated Glomerular Filtration Rate [...] actual GFR. Performed By: #### 2 532-0, 33751-7 #### [facility] CLIA [id number] [address] [place] [address]2862 Glucose [Mass/Vol] 231 mg/dL High 74-99 [facility] Comment on above: Order Comment: Ha oropeza Type: BLOOD SPECIMEN Ordering Facility: [facility] Address: [address] [place] [address] Result Comment: The [place] Diabetes Association (ADA) provides guidance for cutoff [...] Medical Care in Diabetes 2016, [place] Diabetes Association. Diabetes Care. 2016.39(Suppl 1). Performed By: #### 2 532-0, 99997-6 #### [facility] CLIA [id number] [address] [place] [address]453 Potassium [Moles/Vol] 5.3 mmol/L High 3.7-5.1 [facility] Comment on above: Order Comment: Ha oropeza Type: BLOOD SPECIMEN Ordering Facility: [facility] Address: [address] [place] [address] Performed By: #### 2 532-0, 29957-2 #### [facility] CLIA [id number] [address] [place] [address] 71564 Protein [Mass/Vol] 6.9 g/dL Normal 6.3-8.0 [facility] Comment on above: Order Comment: Speci men Type: BLOOD SPECIMEN Ordering Facility: [facility] Address: [address] [place] [address] Performed By: #### 2 532-0, 92002-3 #### [facility] CLIA [id number] [address] [place] [address] Sodium [Moles/Vol] 142 mmol/L Normal 136-144 [facility] Comment on above: Order Comment: Speci men Type: BLOOD SPECIMEN Ordering Facility: [facility] Address: [address] [place] [address] Performed By: #### 2 532-0, 87051-2 #### [facility] CLIA [id number] [address] [place] [address] 15246 Urea nitrogen [Mass/Vol] 36 mg/dL High 7-21 [facility] Comment on above: Order Comment: Speci men Type: BLOOD SPECIMEN Ordering Facility: [facility] Address: [address] [place] [place] [address] Performed By: #### 2 532-0, 37354-9 #### [facility] CLIA [id number] [address] [place] [address] 61193 Eosinophils/100 WBC Auto (Bl d)on 05-26-2024 Eosinophils/100 WBC (Bld) Automated eosinophil % [facility] Erythrocyte distribution wid th Auto (RBC) [Ratio]on 05-26-2024 Erythrocyte distribution width (RBC) [Ratio] Erythrocyte distribution width [Ratio] by Automated count .-15.0 [facility] Hematocrit Auto (Bld) [Volum e fraction]on 05-26-2024 Hematocrit (Bld) [Volume fraction] Hematocrit [Volume Fraction] of Blood by Automated count 36.0-46.0 [facility] Hemoglobin [Mass/volume] in Bloodon 05-26-2024 Hemoglobin (Bld) [Mass/Vol] Hemoglobin [Mass/volume] in Blood 11.5-15.5 [facility] LACTATE DEHYDROGENASEon 05-14 LDH [Catalytic activity/Vol] 184 U/L 135 - 214 U/L [facility] LDH SerPl-cCncon 05-26-2024 LDH [Catalytic activity/Vol] 184 U/L Normal 135-214 [facility] Comment on above: Order Comment: Speci men Type: BLOOD SPECIMEN Ordering Facility: [facility] Address: [address] [place] [address] Performed By: #### 2 532-0, 23585-1 #### [facility] CLIA [id number] [address] [place] [address] LDH [Catalytic activity/Vol] on 05-26-2024 Interpretation and review of laboratory results Normal [facility] - Chemistry and C hemistry - challengeon 05-26-2024 Albumin [Mass/Vol] 4.1 g/dL 3.9-4.9 [facility] ALP [Catalytic activity/Vol] 107 U/L 34-123 [facility] ALT [Catalytic activity/Vol] 21 U/L 7-38 [facility] AST [Catalytic activity/Vol] 23 U/L 13-35 [facility] Bilirubin [Mass/Vol] 0.2 mg/dL 0.2-1.3 [facility] Calcium [Mass/Vol] 9.3 mg/dL 8.5-10.2 [facility] Chloride [Moles/Vol] 105 mmol/L 98-107 [facility] CO2 [Moles/Vol] 26 mmol/L 22-30 [facility] Creatinine [Mass/Vol] 1.20 mg/dL High 0.58-0.96 [facility] Glucose [Mass/Vol] 231 mg/dL High 74-99 [facility] Comment on above: The [place] Diabete s Association (ADA) provides guidance for [...] Medical Care in Diabetes 2016, [place] Diabetes Association. Diabetes Care. 2016.39(Suppl 1). LDH [Catalytic activity/Vol] 184 U/L 135-214 [facility] Potassium [Moles/Vol] 5.3 mmol/L High 3.7-5.1 [facility] Sodium [Moles/Vol] 142 mmol/L 136-144 [facility] Urea nitrogen [Mass/Vol] 36 mg/dL High 7-21 [facility] Laboratory - Hematology and Cell countson 05-26-2024 Eosinophils (Bld) [#/Vol] 0.19 10*3/uL <0.46 [facility] Leukocytes [#/volume] correc andreina for nucleated erythrocytes in Blood by Automated counon 05-26-2024 WBC corrected for nucl RBC Auto (Bld) [#/Vol] Leukocytes [#/volume] corrected for nucleated erythrocytes in Blood by Automated coun High 3.70-11.00 [facility] Comment on above: No clot detected.Res ults checked and verified. Lymphocytes Auto (Bld) [#/Vo l]on 05-26-2024 Lymphocytes (Bld) [#/Vol] Lymphocytes [#/volume] in Blood by Automated count High 1.00-4.00 [facility] Lymphocytes/100 WBC Auto (Bl d)on 05-26-2024 Lymphocytes/100 WBC (Bld) Lymphocytes/100 leukocytes in Blood by Automated count [facility] MCH Auto (RBC) [Entitic mass ]on 05-26-2024 MCH (RBC) [Entitic mass] MCH [Entitic ma ss] by Automated count 26.0-34.0 [facility] MCHC Auto (RBC) [Mass/Vol]on 05-26-2024 MCHC (RBC) [Mass/Vol] MCHC [Mass/volume] by Automated count 30.5-36.0 [facility] MCV Auto (RBC) [Entitic vol] on 05-26-2024 MCV (RBC) [Entitic vol] MCV [Entitic vol ume] by Automated count 80.0-100.0 [facility] Monocytes Auto (Bld) [#/Vol] on 05-26-2024 Monocytes (Bld) [#/Vol] Automated blood monocyte count <0.87 [facility] Monocytes/100 WBC Auto (Bld) on 05-26-2024 Monocytes/100 WBC (Bld) Automated monocyte % [facility] Neutrophils Auto (Bld) [#/Vo l]on 05-26-2024 Neutrophils (Bld) [#/Vol] Neutrophils [#/volume] in Blood by Automated count 1.45-7.50 [facility] Neutrophils/100 WBC Auto (Bl d)on 05-26-2024 Neutrophils/100 WBC (Bld) Automated neutrophil % [facility] No Panel Informationon 05-26 Estimated GFR (CKD-EPI) 46 mL/min/1.73m??? Low >=60 [facility] Comment on above: Estimated Glomerular Filtration Rate (eGFR) is calculated using the 2020 CKD-EPI creatinine equation. This equation utilizes serum creatinine, sex, and age as parameters. The creatinine assay has traceable calibration to isotope dilution-mass spectrometry. Refer to KDIGO guidelines for clinical interpretation. In patients with unstable renal function, e.g. those with acute kidney injury, the eGFR may not accurately reflect actual GFR. Normal RBC Morphology Reviewed: see resu lts of individual morphologies [facility] Nucleated RBC Auto (Bld) [#/ Vol]on 05-26-2024 Nucleated RBC (Bld) [#/Vol] Nucleated erythrocytes [#/volume] in Blood by Automated count <0.01 [facility] Nucleated erythrocytes [Pres ence] in Blood by Automated counton 05-26-2024 Nucleated RBC Auto Ql (Bld) Nucleated erythrocytes [Presence] in Blood by Automated count [facility] Ovalocyte detectionon 2023 Ovalocytes LM Ql (Bld) Ovalocyte detection [facility] Platelet adequacy [Presence] in Blood by Light microscopyon 05-26-2024 Platelets LM Ql (Bld) Platelet adequacy [Presence] in Blood by Light microscopy [facility] Platelet mean volume Auto (B ld) [Entitic vol]on 05-26-2024 Platelet mean volume (Bld) [Entitic vol] Platelet mean volume [Entitic volume] in Blood by Automated count 9.0-12.7 [facility] Platelets Auto (Bld) [#/Vol] on 05-26-2024 Platelets (Bld) [#/Vol] Platelets [#/vol ume] in Blood by Automated count 150-400 [facility] Polychromasia [Presence] in Blood by Light microscopyon 05-26-2024 Polychromasia LM Ql (Bld) Polychromasia [Presence] in Blood by Light microscopy [facility] Protein [Mass/volume] in Ser um or Plasmaon 05-26-2024 Protein [Mass/Vol] Protein [Mass/volume ] in Serum or Plasma 6.3-8.0 [facility] RBC Auto (Bld) [#/Vol]on RBC (Bld) [#/Vol] Erythrocytes [#/volume] in Blood by Automated count 3.90-5.20 [facility] Serum or plasma anion gap de terminationon 05-26-2024 Anion gap [Moles/Vol] Serum or plasma an ion gap determination 8-15 [facility] X-ray reportOrdered By: Teddy Arndt on 05-26-2024 Study report [facility] [address] XRay Report Signed Patient: Kathy Washburn MR#: [id number] : 1940 Acct:[id number] Age/Sex: 83 / F ADM Date: 4 Loc: XD Room: Type: [facility] Attending Dr: Ayanna Vicente DO Copies to: Ayanna Vicente DO~ Ordering Provider: Ayanna Vicente DO Date of Service: 05/26/24 XR/XR hip LT min 2V(w/wo pelvis)*: M25.552 - Pain in left hip ([id number]) XR/XR knee LT 4V*: M25.552 - Pain [...] Stanford Arndt M.D.05/26/2024 4:55 PM Dictation Location: [place] [address] Transcribed By: [facility] 05/26/241654 Dictated By: Stanford Arndt DO 05/26/241652 Signed By: 05/26/241654 [facility] XR knee LT 4V*on 05-26-2024 XR knee LT 4V* [facility] [address] [place] [address] [place] [address] XRay Report Signed Patient: Kathy Washburn MR#: [id number] : 1940 Acct:[id number] Age/Sex: 83 / F ADM Date: 05/26/24 Loc: XD Room: Type: [facility] Attending Dr: Ayanna Vicente DO Copies to: Ayanna Vicente DO Ordering Provider: Ayanna Vicente DO Date of Service: 05/26/24 XR/XR hip LT min 2V(w/wo pelvis)*: M25.552 - Pain in left hip ([id number]) XR/XR knee LT 4V*: M25.552 - Pain [...] Stanford Arndt M.D.05/26/2024 4:55 PM Dictation Location: [place] [address] Transcribed By: STAS 05/26/24 1655 Dictated By: Stanford Arndt DO 05/26/24 1653 Signed By: 05/26/24 1655 Normal [facility] MM screening mammo BI w/CADo n 05-18-2024 MM screening mammo BI w/CAD [facility] [address] Mammography Report Signed Patient: Kathy Washburn MR#: [id number] : 1940 Acct:[id number] Age/Sex: 83 / F ADM Date: 05/18/24 Loc: PR Room: Type: [facility] Attending Dr: Ayanna Vicente DO Copies to: [...] Stanford Arndt M.D.05/18/2024 3:23 PM Dictation Location: [facility] Transcribed By: STAS 05/18/24 1523 Dictated By: Stanford Arndt DO 05/18/24 1459 Signed By: 05/18/24 1523 Normal [facility] CNOVon 05-17-2024 CNOV Office Visit (TREUAV ) KATHY WASHBURN ([id number]) 1940 F Date Time Provider Department 05/17/24 1:00 PM ZOHAIB GERMAN ANDRESLogan During your visit today, we recorded the following information about you: Pulse Blood pressure Weight Height 62/minute 117/75 103.4 kg 1.727 m Zohaib German MD 05/17/2024 1:34 PM Signed [facility] Date of Service: 05/17/2024 Patient: Kathy Washburn Medical Record: [id number] Primary Care Physician: Ayanna Vicente DO Last Rheumatology visit: None at [facility] Referring Provider: No referring provider defined for [...] Use Topics (more content not included)... Normal [facility] A1C with Estimated Average G kenny 05-06-2024 Glucose [Mass/Vol] 194 mg/dL Normal [facility] Comment on above: Result Comment: PERF ORMED BY: [place] [address] PATHOLOGIST EMBLEM DRAWER IN MATHIEU RASCON M.D. Performed By: #### L IPID, A1C [facility] eA, T4F, URMACRERAT, TSH3, CUU, CMP, ADDONUAPLUS, T3T ####[facility] [id number] Alanine aminotransferase [En zymatic activity/volume] in Serum or PlasmaOrdered By: Ayanna Vicente on 05-06-2024 ALT [Catalytic activity/Vol] 25 U/L Normal [facility] Comment on above: Performed By: #### L IPID, A1C [facility] eA, T4F, URMACRERAT, TSH3, CUU, CMP, ADDONUAPLUS, T3T #### [facility] [address] ALT [Catalytic activity/Vol] Alanine aminotransferase [Enzymatic activity/volume] in Serum or Plasma [facility] Albumin [Mass/volume] in Ser um or Plasma by Bromocresol green (BCG) dye binding methoOrdered By: Ayanna Vicente on 05-06-2024 Albumin BCG dye [Mass/Vol] 4.1 g/dL 3.5-5.7 [facility] Albumin BCG dye [Mass/Vol] Albumin [Mass/volume] in Serum or Plasma by Bromocresol green (BCG) dye binding metho 3.5-5.7 [facility] Alkaline phosphatase [Enzyma tic activity/volume] in Serum or PlasmaOrdered By: Ayanna Vicente on 05-06-2024 ALP [Catalytic activity/Vol] 89 U/L Normal 34[address] [facility] Comment on above: Performed By: #### L IPID, A1C WTH eA, T4F, URMACRERAT, TSH3, CUU, CMP, ADDONUAPLUS, T3T #### [facility] [address] ALP [Catalytic activity/Vol] Alkaline phosphatase [Enzymatic activity/volume] in Serum or Plasma [facility] Appearance of UrineOrdered B y: Ayanna Vicente on 05-06-2024 Appearance (U) Urine appearance Clear [facility] Aspartate aminotransferase [ Enzymatic activity/volume] in Serum or PlasmaOrdered By: Ayanna Vicente on 05-06-2024 AST [Catalytic activity/Vol] 23 U/L Normal [facility] Comment on above: Performed By: #### L IPID, A1C WTH eA, T4F, URMACRERAT, TSH3, CUU, CMP, ADDONUAPLUS, T3T #### [facility] [address] AST [Catalytic activity/Vol] Aspartate aminotransferase [Enzymatic activity/volume] in Serum or Plasma [facility] Bacteria [Presence] in Urine sediment by Light microscopyOrdered By: Ayanna Vicente on 05-06-2024 Bacteria LM Ql (Urine sed) 4+ [HPF] High None Seen [facility] Bacteria LM Ql (Urine sed) Bacteria [Presence] in Urine sediment by Light microscopy High None Seen [facility] Bilirubin Test strip Ql (U)O rdered By: Ayanna Vicente on 05-06-2024 Bilirubin Ql (U) Negative Negative [facility] Bilirubin Ql (U) Bilirubin.total [Presence] in Urine by Test strip Negative [facility] Bilirubin.total [Mass/volume ] in Serum or PlasmaOrdered By: Ayanna Vicente on 05-06-2024 Bilirubin [Mass/Vol] 0.4 mg/dL Normal 0.3-1.0 [facility] Comment on above: Performed By: #### L IPID, A1C WT eA, T4F, URMACRERAT, TSH3, CUU, CMP, ADDONUAPLUS, T3T #### [facility] [address] [place] [address] [place] Bilirubin [Mass/Vol] Bilirubin.total [Mass/volume] in Serum or Plasma 0.3-1.0 [facility] Blood estimated average gluc ose determination by estimation from glycated hemoglobinOrdered By: Ayanna Vicente on 05-06-2024 Average glucose Estimated from glycated hemoglobin (Bld) [Mass/Vol] Glucose mean value [Mass/volume] in Blood Estimated from glycated hemoglobin [facility] Calcium [Mass/volume] in Ser um or PlasmaOrdered By: Ayanna Vicente on 05-06-2024 Calcium [Mass/Vol] 9.6 mg/dL Normal 8.6-10.3 [facility] Comment on above: Performed By: #### L IPID, A1C WTH eA, T4F, URMACRERAT, TSH3, CUU, CMP, ADDONUAPLUS, T3T #### [facility] [address] [place] [address] [place] Calcium [Mass/Vol] Calcium [Mass/volume ] in Serum or Plasma 8.6-10.3 [facility] Carbon dioxide, total [Moles /volume] in Serum or PlasmaOrdered By: Ayanna Vicente on 05-06-2024 CO2 [Moles/Vol] 30.2 mmol/L Normal 21.0-31.0 [facility] Comment on above: Performed By: #### L IPID, A1C WTH eA, T4F, URMACRERAT, TSH3, CUU, CMP, ADDONUAPLUS, T3T #### [facility] [address] [place] [id number] [place] CO2 [Moles/Vol] Carbon dioxide, tota l [Moles/volume] in Serum or Plasma 21.0-31.0 [facility] Chloride [Moles/volume] in S ebony or PlasmaOrdered By: Ayanna Vicente on 05-06-2024 Chloride [Moles/Vol] 105 mmol/L Normal 98-107 [facility] Comment on above: Performed By: #### L IPID, A1C WT eA, T4F, URMACRERAT, TSH3, CUU, CMP, ADDONUAPLUS, T3T #### [facility] [address] [place] [id number] [place] Chloride [Moles/Vol] Chloride [Moles/volume] in Serum or Plasma [facility] Cholesterol [Mass/volume] in Serum or PlasmaOrdered By: Ayanna Vicente on 05-06-2024 Cholesterol [Mass/Vol] 134 mg/dL Low 140-200 [facility] Comment on above: Chol less than 200 m g/dl low riskChol 201-239 mg/dl borderline riskChol 240 mg/dl and greater high risk Result Comment: Chol less than 200 mg/dl low risk Chol 201-239 mg/dl borderline risk Chol 240 mg/dl and greater high risk Performed By: #### L IPID, A1C [facility] eA, T4F, URMACRERAT, TSH3, CUU, CMP, ADDONUAPLUS, T3T #### [facility] [address] [place] [address] [place] Cholesterol [Mass/Vol] Cholesterol [Mass/volume] in Serum or Plasma Low 140-200 [facility] Comment on above: Chol less than 200 m g/dl low riskChol 201-239 mg/dl borderline riskChol 240 mg/dl and greater high risk Cholesterol in HDL [Mass/vol ume] in Serum or PlasmaOrdered By: Ayanna Vicente on 05-06-2024 Cholesterol in HDL [Mass/Vol] Serum or plasma high density lipoprotein (HDL) cholesterol measurement [facility] Comment on above: HDL CHOL ATP-III CLA SSIFICATION Cardiovascular RiskHDL > or equal to 60 mg/dL LOWHDL < 40 mg/dL HIGH Cholesterol in LDL Calc [Mas s/Vol]Ordered By: Ayanna Vicente on 05-06-2024 Cholesterol in LDL [Mass/Vol] 46 mg/dL 0-100 [facility] Comment on above: LDL ATP III CLASSIFI CATIONLDL less than 100 mg/dL OptimalLDL 100-129 mg/dL Near or above optimalLDL 130-159 mg/dL Borderline highLDL 160-189 mg/dL HighLDL greater than 189 mg/dL Very high Cholesterol in LDL [Mass/Vol] Cholesterol in LDL [Mass/volume] in Serum or Plasma by calculation 0-100 [facility] Comment on above: LDL ATP III CLASSIFI CATIONLDL less than 100 mg/dL OptimalLDL 100-129 mg/dL Near or above optimalLDL 130-159 mg/dL Borderline highLDL 160-189 mg/dL HighLDL greater than 189 mg/dL Very high Cholesterol in VLDL Calc [Ma ss/Vol]Ordered By: Ayanna Vicente on 05-06-2024 Cholesterol in VLDL [Mass/Vol] 47 mg/dL [facility] Cholesterol in VLDL [Mass/Vol] Cholesterol in VLDL [Mass/volume] in Serum or Plasma by calculation [facility] Color Auto (U)Ordered By: Vasile Vicente on 05-06-2024 Color (U) Color of Urine by Auto Yellow [facility] Color of Urine by AutoOrdere d By: Ayanna Vicente on 05-06-2024 Color (U) Yellow Normal Yellow [facility] Comment on above: Order Comment: Name Collection Type:: Clean-Voided Midstream Performed By: #### L IPID, A1C WTH eA, T4F, URMACRERAT, TSH3, CUU, CMP, ADDONUAPLUS, T3T #### [facility] [address] Comprehensive Metabolic Pane curt 05-06-2024 Albumin [Mass/Vol] 4.1 g/dL Normal 3.5-5.7 [facility] Comment on above: Performed By: #### L IPID, A1C WTH eA, T4F, URMACRERAT, TSH3, CUU, CMP, ADDONUAPLUS, T3T #### [facility] [address] GFR/1.73 sq M.predicted MDRD (S/P/Bld) [Vol rate/Area] 51.605 mL/min/{1.73_m2} Normal [facility] Comment on above: Performed By: #### L IPID, A1C WTH eA, T4F, URMACRERAT, TSH3, CUU, CMP, ADDONUAPLUS, T3T #### [facility] [address] Creatinine [Mass/volume] in Serum or PlasmaOrdered By: Ayanna Vicente on 05-06-2024 Creatinine [Mass/Vol] 1.08 mg/dL Normal 0.60-1.20 [facility] Comment on above: Performed By: #### L IPID, A1C WTH eA, T4F, URMACRERAT, TSH3, CUU, CMP, ADDONUAPLUS, T3T #### [facility] [address] [place] [id number] [facility] Creatinine [Mass/Vol] Creatinine [Mass/volume] in Serum or Plasma 0.60-1.20 [facility] Creatinine [Mass/volume] in UrineOrdered By: Ayanna Vicente on 05-06-2024 Creatinine (U) [Mass/Vol] 93.00 mg/dL [facility] Comment on above: No reference range e stablished Creatinine (U) [Mass/Vol] Creatinine [Mass/volume] in Urine [facility] Comment on above: No reference range e stablished Dipstick and Microscopicon 1 Bacteria,Urine 4+ High None Seen [facility] Comment on above: Order Comment: Name Collection Type:: Clean-Voided Midstream Performed By: #### L IPID, A1C WTH eA, T4F, URMACRERAT, TSH3, CUU, CMP, ADDONUAPLUS, T3T #### [facility] [address] [place] [address] Bilirubin,Urine Negative Normal Negative [facility] Comment on above: Order Comment: Name Collection Type:: Clean-Voided Midstream Performed By: #### L IPID, A1C WTH eA, T4F, URMACRERAT, TSH3, CUU, CMP, ADDONUAPLUS, T3T #### [facility] [address] [place], [place] [id number] [facility] Glucose Ql (U) Normal Normal Normal [facility] Comment on above: Order Comment: Name Collection Type:: Clean-Voided Midstream Performed By: #### L IPID, A1C WTH eA, T4F, URMACRERAT, TSH3, CUU, CMP, ADDONUAPLUS, T3T #### [address] Hyaline Casts,Urine 5-9 High 0-1 [facility] Comment on above: Order Comment: Name Collection Type:: Clean-Voided Midstream Result Comment: PERF ORMED BY: [place] [address] PATHOLOGIST EMBLEM DRAWER IN MATHIEU RASCON M.D. Performed By: #### L IPID, A1C WTH eA, T4F, URMACRERAT, TSH3, CUU, CMP, ADDONUAPLUS, T3T #### [address] Nitrite,Urine Negative Normal Negative [facility] Comment on above: Order Comment: Name Collection Type:: Clean-Voided Midstream Performed By: #### L IPID, A1C WTH eA, T4F, URMACRERAT, TSH3, CUU, CMP, ADDONUAPLUS, T3T #### [address] Occult Blood,Urine Negative Normal Negative [facility] Comment on above: Order Comment: Name Collection Type:: Clean-Voided Midstream Performed By: #### L IPID, A1C WTH eA, T4F, URMACRERAT, TSH3, CUU, CMP, ADDONUAPLUS, T3T #### [place] [address] [place] Protein,Urine Trace High Negative [facility] Comment on above: Order Comment: Name Collection Type:: Clean-Voided Midstream Performed By: #### L IPID, A1C WTH eA, T4F, URMACRERAT, TSH3, CUU, CMP, ADDONUAPLUS, T3T #### [address] RBC LM.HPF (Urine sed) [#/Area] 0 /[HPF] Normal 0-4 [facility] Comment on above: Order Comment: Name Collection Type:: Clean-Voided Midstream Performed By: #### L IPID, A1C WTH eA, T4F, URMACRERAT, TSH3, CUU, CMP, ADDONUAPLUS, T3T #### [address] Specificy [place],Urine 1.020 Normal 1.001-1.030 [facility] Comment on above: Order Comment: Name Collection Type:: Clean-Voided Midstream Performed By: #### L IPID, A1C WTH eA, T4F, URMACRERAT, TSH3, CUU, CMP, ADDONUAPLUS, T3T #### [address] Squamous Epithelial Cell,Urine 3-4 High 0-2 [facility] Comment on above: Order Comment: Name Collection Type:: Clean-Voided Midstream Performed By: #### L IPID, A1C WTH eA, T4F, URMACRERAT, TSH3, CUU, CMP, ADDONUAPLUS, T3T #### [address] Urobilinogen,Urine Normal Normal Normal [facility] Comment on above: Order Comment: Name Collection Type:: Clean-Voided Midstream Performed By: #### L IPID, A1C WTH eA, T4F, URMACRERAT, TSH3, CUU, CMP, ADDONUAPLUS, T3T #### [address] WBC,Urine 10-19 High 0-4 [facility] Comment on above: Order Comment: Name Collection Type:: Clean-Voided Midstream Performed By: #### L IPID, A1C WTH eA, T4F, URMACRERAT, TSH3, CUU, CMP, ADDONUAPLUS, T3T #### [address] Epithelial cells.squamous [# /area] in Urine sediment by Microscopy high power fieldOrdered By: Ayanna Vicente on 05-06-2024 Epithelial cells.squamous LM.HPF (Urine sed) [#/Area] 3-4 [HPF] High 0-2 [facility] Epithelial cells.squamous LM.HPF (Urine sed) [#/Area] Epithelial cells.squamous [#/area] in Urine sediment by Microscopy high power field High 0-2 [facility] Erythrocytes [#/area] in Uri ne sediment by Microscopy high power fieldOrdered By: Ayanna Vicente on 05-06-2024 RBC LM.HPF (Urine sed) [#/Area] 0-1 [HPF] 0-4 [facility] RBC LM.HPF (Urine sed) [#/Area] Erythrocytes [#/area] in Urine sediment by Microscopy high power field 0-4 [facility] Globulin Calc (S) [Mass/Vol] Ordered By: Ayanna Vicente on 05-06-2024 Globulin (S) [Mass/Vol] Serum globulin measurement by calculation (mass/volume) [facility] Glucose [Mass/volume] in Ser um or PlasmaOrdered By: Ayanna Vicente on 05-06-2024 Glucose [Mass/Vol] 129 mg/dL High 70-100 [facility] Comment on above: ADA recommended refe rence rangeRandom Glucose Reference Range is dependent on time and content of last meal. Glucose of more than 200 mg/dL in a nonstressed, ambulatory subject supports the diagnosis of Diabetes Mellitus. Result Comment: Reeder Glucose Reference Range is dependent on time and content of last meal. Glucose of more than 200 mg/dL in a nonstressed, ambulatory subject supports the diagnosis of Diabetes Mellitus. ADA recommended reference range Performed By: #### L IPID, A1C WTH eA, T4F, URMACRERAT, TSH3, CUU, CMP, ADDONUAPLUS, T3T #### [facility] [address] Glucose [Mass/Vol] Glucose [Mass/volume ] in Serum or Plasma High 70-100 [facility] Comment on above: ADA recommended refe rence rangeRandom Glucose Reference Range is dependent on time and content of last meal. Glucose of more than 200 mg/dL in a nonstressed, ambulatory subject supports the diagnosis of Diabetes Mellitus. Glucose [Mass/volume] in Uri ne by Test stripOrdered By: Ayanna Vicente on 05-06-2024 Glucose Test strip (U) [Mass/Vol] Normal mg/dL Normal [facility] Glucose Test strip (U) [Mass/Vol] Glucose [Mass/volume] in Urine by Test strip Normal [facility] Glucose mean value [Mass/vol ume] in Blood Estimated from glycated hemoglobinOrdered By: Ayanna Vicente on 05-06-2024 Average glucose Estimated from glycated hemoglobin (Bld) [Mass/Vol] 194 mg/dL [facility] Hemoglobin A1c percentageOrd ered By: Ayanna Vicente on 05-06-2024 HbA1c (Bld) [Mass fraction] 8.4 % High 4.3-5.6 [facility] Comment on above: Increased risk for d iabetes: 5.7 - 6.4diabetes: >6.4glycemic control for adults with diabetes: <7.0 Result Comment: Incr eased risk for diabetes: 5.7 - 6.4 diabetes: >6.4 glycemic control for adults with diabetes: <7.0 Performed By: #### L IPID, A1C WTH eA, T4F, URMACRERAT, TSH3, CUU, CMP, ADDONUAPLUS, T3T ####[facility] [id number] [place] [id number] [facility] Hemoglobin A1c/Hemoglobin.to dayna in BloodOrdered By: Ayanna Vicente on 05-06-2024 HbA1c (Bld) [Mass fraction] Hemoglobin A1c percentage High 4.3-5.6 [facility] Comment on above: Increased risk for d iabetes: 5.7 - 6.4diabetes: >6.4glycemic control for adults with diabetes: <7.0 Hemoglobin Test strip Ql (U) Ordered By: Ayanna Vicente on 05-06-2024 Hemoglobin Ql (U) Negative Negative [facility] Hemoglobin Ql (U) Hemoglobin [Presence ] in Urine by Test strip Negative [facility] Hyaline casts LM.LPF (Urine sed) [#/Area]Ordered By: Ayanna Vicente on 05-06-2024 Hyaline casts (Urine sed) [#/Area] 5-9 [LPF] High 0-1 [facility] Hyaline casts (Urine sed) [#/Area] Hyaline casts [#/area] in Urine sediment by Microscopy low power field High 0-1 [facility] Ketones Test strip Ql (U)Ord ered By: Ayanna Vicente on 05-06-2024 Ketones Ql (U) Ketones [Presence] i n Urine by Test strip Negative [facility] Ketones [Presence] in Urine by Test stripOrdered By: Ayanna Vicente on 05-06-2024 Ketones Ql (U) Negative Normal Negative [facility] Comment on above: Order Comment: Name Collection Type:: Clean-Voided Midstream Performed By: #### L IPID, A1C WTH eA, T4F, URMACRERAT, TSH3, CUU, CMP, ADDONUAPLUS, T3T #### [facility] [address] Laboratory - Microbiology an d Antimicrobial susceptibilityOrdered By: Ayanna Vicente on 05-06-2024 Bacteria identified Cx Nom (U) Klebsiella variicola Abnormal [facility] Bacteria identified Cx Nom (U) Klebsiella variicola Abnormal [facility] Leukocyte esterase [Presence ] in Urine by Test stripOrdered By: Ayanna Vicente on 05-06-2024 Leukocyte esterase Test strip Ql (U) 2+ High Negative [facility] Comment on above: Order Comment: Name Collection Type:: Clean-Voided Midstream Performed By: #### L IPID, A1C WTH eA, T4F, URMACRERAT, TSH3, CUU, CMP, ADDONUAPLUS, T3T #### [facility] [address] [id number] [place] Leukocyte esterase Test strip Ql (U) Leukocyte esterase [Presence] in Urine by Test strip High Negative [facility] Leukocytes [#/area] in Urine sediment by Microscopy high power fieldOrdered By: Ayanna Vicente on 05-06-2024 WBC LM.HPF (Urine sed) [#/Area] 10-19 [HPF] High 0-4 [facility] WBC LM.HPF (Urine sed) [#/Area] Leukocytes [#/area] in Urine sediment by Microscopy high power field High 0-4 [facility] Lipid Panelon 05-06-2024 LDL Cholesterol,Calculated 46 mg/dL Normal 0-100 [facility] Comment on above: Result Comment: LDL ATP III CLASSIFICATION LDL less than 100 mg/dL Optimal LDL 100-129 mg/dL Near or above optimal LDL 130-159 mg/dL Borderline high LDL 160-189 mg/dL High LDL greater than 189 mg/dL Very high Performed By: #### L IPID, A1C WTH eA, T4F, URMACRERAT, TSH3, CUU, CMP, ADDONUAPLUS, T3T #### [facility] [address] Triglyceride w/Reflex 235 mg/dL High 0-149 [facility] Comment on above: Result Comment: TRIG ATP III CLASSIFICATION TRIG less than 150 mg/dL Normal TRIG 150-199 mg/dL Borderline high TRIG 200-500 mg/dL High TRIG greater than 500 mg/dL Very high Standard traceable to the Center for Disease Conrtrol and Prevention (CDC) test method. Performed By: #### L IPID, A1C WTH eA, T4F, URMACRERAT, TSH3, CUU, CMP, ADDONUAPLUS, T3T #### [facility] [address] VLDL CHOLESTEROL 47 mg/dL Normal [facility] Comment on above: Performed By: #### L IPID, A1C WTH eA, T4F, URMACRERAT, TSH3, CUU, CMP, ADDONUAPLUS, T3T #### [address] MicroAlb Creat Ratio,Uon Creatinine, Urine (Random) 93.00 mg/dL Normal [facility] Comment on above: Result Comment: No r eference range established Performed By: #### L IPID, A1C WTH eA, T4F, URMACRERAT, TSH3, CUU, CMP, ADDONUAPLUS, T3T #### [facility] [address] [id number] [facility] Microalbumin/Creatinine Ratio 17.2 mg/g Normal 0.0-30.0 [facility] Comment on above: Result Comment: 30-3 00 mg/g indicates an increased risk for diabetic nephropathy. Greater than 300 mg/g is consistent with clinical nephropathy. (Am. J. Kidney Disease 1995, 25:107) PERFORMED BY: [place] [address] PATHOLOGIST EMBLEM DRAWER IN MATHIEU RASCON M.D. Performed By: #### L IPID, A1C WTH eA, T4F, URMACRERAT, TSH3, CUU, CMP, ADDONUAPLUS, T3T #### [facility] [address] [id number] [place] Microalbumin [Mass/volume] i n UrineOrdered By: Ayanna Vicente on 05-06-2024 Albumin DL <= 20 mg/L (U) [Mass/Vol] 1.6 mg/dL Normal 0.0-1.8 [facility] Comment on above: Performed By: #### L IPID, A1C WTH eA, T4F, URMACRERAT, TSH3, CUU, CMP, ADDONUAPLUS, T3T #### [facility] [address] Albumin DL <= 20 mg/L (U) [Mass/Vol] Microalbumin [Mass/volume] in Urine 0.0-1.8 [facility] Nitrite Test strip Ql (U)Ord ered By: Ayanna Vicente on 05-06-2024 Nitrite Ql (U) Negative Negative [facility] Nitrite Ql (U) Nitrite [Presence] i n Urine by Test strip Negative [facility] No Panel InformationOrdered By: Ayanna Vicente on 05-06-2024 Estimated GFR (CKD-EPI) 51.605 mL/Min [facility] Creatinine Clearance (Chem N/A [facility] Potassium [Moles/volume] in Serum or PlasmaOrdered By: Ayanna Vicente on 05-06-2024 Potassium [Moles/Vol] 5.1 mmol/L Normal 3.5-5.1 [facility] Comment on above: Performed By: #### L IPID, A1C WTH eA, T4F, URMACRERAT, TSH3, CUU, CMP, ADDONUAPLUS, T3T #### [facility] [address] Potassium [Moles/Vol] Potassium [Moles/volume] in Serum or Plasma 3.5-5.1 [facility] Protein Test strip (U) [Mass /Vol]Ordered By: Ayanna Vicente on 05-06-2024 Protein (U) [Mass/Vol] Trace mg/dL High Negative F [facility] Protein (U) [Mass/Vol] Protein [Mass/vol ume] in Urine by Test strip High Negative [facility] Protein [Mass/volume] in Ser um or PlasmaOrdered By: Ayanna Vicente on 05-06-2024 Protein [Mass/Vol] 6.8 g/dL Normal 6.4-8.9 [facility] Comment on above: Performed By: #### L IPID, A1C WT eA, T4F, URMACRERAT, TSH3, CUU, CMP, ADDONUAPLUS, T3T #### [facility] [address] [place] [address] Protein [Mass/Vol] Protein [Mass/volume ] in Serum or Plasma 6.4-8.9 [facility] Serum globulin measurement b y calculation (mass/volume)Ordered By: Ayanna Vicente on 05-06-2024 Globulin (S) [Mass/Vol] 2.7 g/dL Normal F [facility] Comment on above: Performed By: #### L IPID, A1C WTH eA, T4F, URMACRERAT, TSH3, CUU, CMP, ADDONUAPLUS, T3T #### [facility] [address] [place] [address] Serum or plasma albumin/glob ulin mass ratioOrdered By: Ayanna Vicente on 05-06-2024 Albumin/Globulin [Mass ratio] 1.5 {ratio} Normal [facility] Comment on above: Performed By: #### L IPID, A1C WTH eA, T4F, URMACRERAT, TSH3, CUU, CMP, ADDONUAPLUS, T3T #### [facility] [address] [place] [address] [place] Albumin/Globulin [Mass ratio] Serum or plasma albumin/globulin mass ratio [facility] Serum or plasma anion gap de terminationOrdered By: Ayanna Vicente on 05-06-2024 Anion gap [Moles/Vol] 10.9 mmol/L Normal 6.0-15.0 [facility] Comment on above: Performed By: #### L IPID, A1C [facility] eA, T4F, URMACRERAT, TSH3, CUU, CMP, ADDONUAPLUS, T3T #### [facility] [address] Anion gap [Moles/Vol] Serum or plasma an ion gap determination 6.0-15.0 [facility] Serum or plasma high density lipoprotein (HDL) cholesterol measurementOrdered By: Ayanna Vicente on 05-06-2024 Cholesterol in HDL [Mass/Vol] 41 mg/dL Normal 23-92 [facility] Comment on above: HDL CHOL ATP-III CLA SSIFICATION Cardiovascular RiskHDL > or equal to 60 mg/dL LOWHDL < 40 mg/dL HIGH Result Comment: HDL CHOL ATP-III CLASSIFICATION Cardiovascular Risk HDL > or equal to 60 mg/dL LOW HDL < 40 mg/dL HIGH Performed By: #### L IPID, A1C [facility] eA, T4F, URMACRERAT, TSH3, CUU, CMP, ADDONUAPLUS, T3T #### [facility] [address] Serum or plasma total choles terol/high density lipoprotein (HDL) cholesterol mass ratOrdered By: Ayanna Vicente on 05-06-2024 Cholesterol.total/Choles terol in HDL [Mass ratio] 3.3 {ratio} Normal <5.0 [facility] Comment on above: Performed By: #### L IPID, A1C [facility] eA, T4F, URMACRERAT, TSH3, CUU, CMP, ADDONUAPLUS, T3T #### [facility] [address] Cholesterol.total/Choles terol in HDL [Mass ratio] Serum or plasma total cholesterol/high density lipoprotein (HDL) cholesterol mass rat <5.0 [facility] Sodium [Moles/volume] in Ser um or PlasmaOrdered By: Ayanna Vicente on 05-06-2024 Sodium [Moles/Vol] 141 mmol/L Normal 136-145 [facility] Comment on above: Performed By: #### L IPID, A1C [facility] eA, T4F, URMACRERAT, TSH3, CUU, CMP, ADDONUAPLUS, T3T #### [facility] [address] Sodium [Moles/Vol] Sodium [Moles/volume ] in Serum or Plasma 136-145 [facility] Specific gravity Test strip (U) [Rel density]Ordered By: Ayanna Vicente on 05-06-2024 Specific gravity (U) [Rel density] 1.020 1.001-1.030 [facility] Specific gravity (U) [Rel density] Specific gravity of Urine by Test strip 1.001-1.030 [facility] Thyrotropin [Units/volume] i n Serum or PlasmaOrdered By: Ayanna Vicente on 05-06-2024 TSH Qn 1.93 m[IU]/L Normal 0.45-5.33 [facility] Comment on above: Result Comment: PERF ORMED BY: [facility] [address] [place] [address] PATHOLOGIST EMBLEM DRAWER IN MATHIEU RASCON M.D. Performed By: #### L IPID, [address] eA, T4F, URMACRERAT, TSH3, CUU, CMP, ADDONUAPLUS, T3T ####[facility] TSH Qn Thyrotropin [Units/volume] in Serum or Plasma 0.45-5.33 [facility] Thyroxine (T4) free [Mass/vo lume] in Serum or PlasmaOrdered By: Ayanna Vicente on 05-06-2024 Free T4 [Mass/Vol] 0.94 ng/dL Normal 0.61-1.12 [facility] Comment on above: Performed By: #### L IPID, A1C [facility] eA, T4F, URMACRERAT, TSH3, CUU, CMP, ADDONUAPLUS, T3T ####[facility] Free T4 [Mass/Vol] Thyroxine (T4) free [Mass/volume] in Serum or Plasma 0.61-1.12 [facility] Triglyceride [Mass/volume] i n Serum or PlasmaOrdered By: Ayanna Vicente on 05-06-2024 Triglyceride [Mass/Vol] 235 mg/dL High 0-[address] [facility] Comment on above: TRIG ATP III CLASSIF ICATIONTRIG less than 150 mg/dL NormalTRIG 150-199 mg/dL Borderline highTRIG 200-500 mg/dL High TRIG greater than 500 mg/dL Very highStandard traceable to the Center for Disease Conrtrol and Prevention (CDC) test method. Triglyceride [Mass/Vol] Triglyceride [Mass/volume] in Serum or Plasma High 0-149 [facility] Comment on above: TRIG ATP III CLASSIF ICATIONTRIG less than 150 mg/dL NormalTRIG 150-199 mg/dL Borderline highTRIG 200-500 mg/dL High TRIG greater than 500 mg/dL Very highStandard traceable to the Center for Disease Conrtrol and Prevention (CDC) test method. Triiodothyronine (T3) Totalo n 05-06-2024 Triiodothyronine (T3) Total 0.89 ng/mL Normal 0.87-1.78 [facility] Comment on above: Performed By: #### L IPID, A1C WTH eA, T4F, URMACRERAT, TSH3, CUU, CMP, ADDONUAPLUS, T3T ####[facility] [id number] Triiodothyronine (T3) [Mass/ volume] in Serum or PlasmaOrdered By: Ayanna Vicente on 05-06-2024 T3 [Mass/Vol] 0.89 ng/mL 0.87-1.78 [facility] T3 [Mass/Vol] Triiodothyronine (T3 ) [Mass/volume] in Serum or Plasma 0.87-1.78 [facility] Urea nitrogen [Mass/volume] in Serum or PlasmaOrdered By: Ayanna Vicente on 05-06-2024 Urea nitrogen [Mass/Vol] 29 mg/dL High 725 [facility] Comment on above: Performed By: #### L IPID, A1C WTH eA, T4F, URMACRERAT, TSH3, CUU, CMP, ADDONUAPLUS, T3T #### [facility] [address] [id number] [facility] Urea nitrogen [Mass/Vol] Urea nitrogen [Mass/volume] in Serum or Plasma High 7-25 [facility] Urine Cultureon 05-06-2024 Bacteria identified Cx Nom (U) ORGANISM: Klebsiella variicola (O:KLEVAR) Buckley Count >100,000 Aerobic CORNELIA Charge ([id number]) ---- [...] RESISTANT TO ALL B-LACTAM DRUGS. PERFORMED BY: [facility] [address] [place] [address] PATHOLOGIST EMBLEM DRAWER IN MATHIEU RASCON M.D. Normal [facility] Comment on above: Performed By: #### L IPID, A1C WTH eA, T4F, URMACRERAT, TSH3, CUU, CMP, ADDONUAPLUS, T3T ####[facility] [id number] [id number] [facility] Urine appearanceOrdered By: Ayanna Vicente on 05-06-2024 Appearance (U) Clear Normal Clear [facility] Comment on above: Order Comment: Name Collection Type:: Clean-Voided Midstream Performed By: #### L IPID, A1C WTH eA, T4F, URMACRERAT, TSH3, CUU, CMP, ADDONUAPLUS, T3T #### [facility] [address] Urine cultureOrdered By: Aftab Vicente on 05-06-2024 Bacteria identified Cx Nom (U) Abnormal [facility] Urine microalbumin/creatinin e mass ratioOrdered By: Ayanna Vicente on 05-06-2024 Albumin/Creatinine DL <= 20 mg/L (U) [Mass ratio] 17.2 mg/g 0.0-30.0 [facility] Comment on above: 30-300 mg/g indicate s an increased risk for diabetic nephropathy. Greater than 300 mg/g is consistent with clinical nephropathy. (Am. J. Kidney Disease 1995, 25:107) Albumin/Creatinine DL <= 20 mg/L (U) [Mass ratio] Urine microalbumin/creatini ne mass ratio 0.0-30.0 [facility] Comment on above: 30-300 mg/g indicate s an increased risk for diabetic nephropathy. Greater than 300 mg/g is consistent with clinical nephropathy. (Am. J. Kidney Disease 1995, 25:107) Urobilinogen Test strip (U) [Mass/Vol]Ordered By: Ayanna Vicente on 05-06-2024 Urobilinogen (U) [Mass/Vol] Normal mg/dL Normal [facility] Urobilinogen (U) [Mass/Vol] Urobilinogen [Mass/volume] in Urine by Test strip Normal [facility] pH Test strip (U)Ordered By: Ayanna Vicente on 05-06-2024 pH (U) pH of Urine by Test strip 5.0-9.0 [facility] pH of Urine by Test stripOrd ered By: Ayanna Vicente on 05-06-2024 pH (U) 5.5 [pH] Normal 5.0-9.0 [facility] Comment on above: Order Comment: Name Collection Type:: Clean-Voided Midstream Performed By: #### L IPID, A1C WTH eA, T4F, URMACRERAT, TSH3, CUU, CMP, ADDONUAPLUS, T3T #### [facility] [address] Ambulatory Visit Summaryon 0 02-24-2024 Ambulatory [...] Comments: 6 mos (no labs) Where: [address] [place] [address] [phone] Medications What How Much When Why Instructions [...] social activities (more content not included)... Normal [facility] Urology Office/Clinic Noteon 02-24-2024 Urology Office/Clinic [...] (N32.81: Overactive bladder) S/p Botox 100u 08/30/21. -Baird sxs only improved for a few weeks [...] Contact Information JAX BECKMAN, SUSAN Miller, URL [address] [place] [address] [phone] Additional Instructions: 6 mos (no labs) Patient Education Overactive Bladder, Adult Documentation recorded by the scrbhupinder Ospina accurately reflects the services(s) I performed and decisions made by me. Authenticated by Susan Randolph PA-C on 02/24/2024 10:52:41. I, Sarah Ospina, personally scribed for Susan Randolph PA-C on [...] mg Tab, (more content not included)... Normal [facility] Comment on above: Result Comment: Elec tronically Signed By: SUSAN RANDOLPH PA-C\.br\Date and Time Signed: 02/24/24 10:53 EDT\.br\Electronically Co-Signed By: Sarah Ospina\.br\Date and Time Co-Signed: 02/24/24 10:44 EDT\.br\Electronically Co-Signed By: Sarah Ospina.dulce maria\Date and Time Co-Signed: 02/24/24 10:47 EDT Laboratory - Chemistry and C hemistry - challengeon 02-04-2024 Bilirubin Ql (U) Negative NEGATIVE [facility] Glucose (U) [Mass/Vol] Negative NEGATIVE [facility] Ketones Ql (U) Negative NEGATIVE [facility] pH (U) 6.0 [pH] 5.0-9.0 [facility] Specific gravity (U) [Rel density] >=1.030 Abnormal 1.005-1.025 [facility] Urobilinogen Qn (U) 0.2 {Jose'U}/dL 0.2-1.0 [facility] Laboratory - Specimen inform ationon 02-04-2024 Appearance (U) CLEAR CLEAR [facility] Color (U) YELLOW YELLOW [facility] Laboratory - Urinalysison Leukocyte esterase Test strip Ql (U) TRACE Abnormal NEGATIVE [facility] Mucus Ql (Urine sed) TRACE Abnormal NONE SEEN [facility] Nitrite Ql (U) Negative NEGATIVE [facility] Protein Ql (U) TRACE mg/dL NEG/TRACE [facility] No Panel Informationon 02-03 Miscellaneous Test Comment See comment [facility] Comment on above: Specimen Source: UCC - Urine,Clean Catch - Urine CC - 200.100 Urine Bacteria TRACE #/HPF Abnormal NONE SEEN [facility] Urine Occult Blood Negative NEGATIVE [facility] Urine Other Casts NONE SEEN #/LPF NONE SEEN [facility] Urine Other Crystals None Seen #/HPF None Seen [facility] Urine RBC 0-2 #/HPF 0-2 [facility] Urine Squamous Epithelial Cells RARE #/LPF NONE/RARE [facility] Urine WBC 2-5 #/HPF Abnormal NONE SEEN [facility] Urine culture routineon 01-12 Bacteria identified Cx Nom (U) [facility] Alanine aminotransferase [En zymatic activity/volume] in Serum or PlasmaOrdered By: Ayanna Vicente on 10-17-2023 ALT [Catalytic activity/Vol] 28 U/L 7-52 [facility] Albumin [Mass/volume] in Ser um or Plasma by Bromocresol green (BCG) dye binding methoOrdered By: Ayanna Vicente on 10-17-2023 Albumin BCG dye [Mass/Vol] 4.1 g/dL 3.5-5.7 [facility] Alkaline phosphatase [Enzyma tic activity/volume] in Serum or PlasmaOrdered By: Ayanna Vicente on 10-17-2023 ALP [Catalytic activity/Vol] 93 U/L 34-104 [facility] Anisocytosis LM Ql (Bld)Orde red By: Ayanna Vicente on 10-17-2023 Anisocytosis Ql (Bld) Slight [facility] Aspartate aminotransferase [ Enzymatic activity/volume] in Serum or PlasmaOrdered By: Ayanna Vicente on 10-17-2023 AST [Catalytic activity/Vol] 30 U/L 13-39 [facility] Automated erythrocytes count in urine sediment (number/area)Ordered By: Ayanna Vicente on 10-17-2023 RBC Auto (Urine sed) [#/Area] 1-2 [HPF] 0-4 [facility] Automated leukocytes count i n urine sediment (number/area)Ordered By: Aaynna Vicente on 10-17-2023 WBC Auto (Urine sed) [#/Area] 10-19 [HPF] High 0-4 [facility] Basophils Auto (Bld) [#/Vol] Ordered By: Ayanna Vicente on 10-17-2023 Basophils (Bld) [#/Vol] N/A F [facility] Basophils/100 WBC Auto (Bld) Ordered By: Ayanna Vicente on 10-17-2023 Basophils/100 WBC (Bld) N/A F [facility] Bilirubin Test strip Ql (U)O rdered By: Ayanna Vicente on 10-17-2023 Bilirubin Ql (U) Negative Negative [facility] Bilirubin.total [Mass/volume ] in Serum or PlasmaOrdered By: Ayanna Vicente on 10-17-2023 Bilirubin [Mass/Vol] 0.4 mg/dL 0.3-1.0 [facility] Calcium [Mass/volume] in Ser um or PlasmaOrdered By: Ayanna Vicente on 10-17-2023 Calcium [Mass/Vol] 9.7 mg/dL 8.6-10.3 [facility] Carbon dioxide, total [Moles /volume] in Serum or PlasmaOrdered By: Ayanna Vicente on 10-17-2023 CO2 [Moles/Vol] 30.9 mmol/L 21.0-31.0 [facility] Chloride [Moles/volume] in S ebony or PlasmaOrdered By: Ayanna Vicente on 10-17-2023 Chloride [Moles/Vol] 105 mmol/L 98-107 [facility] Cholesterol [Mass/volume] in Serum or PlasmaOrdered By: Ayanna Vicente on 10-17-2023 Cholesterol [Mass/Vol] 131 mg/dL Low 140-200 [facility] Comment on above: Chol less than 200 m g/dl low riskChol 201-239 mg/dl borderline riskChol 240 mg/dl and greater high risk Cholesterol in LDL Calc [Mas s/Vol]Ordered By: Ayanna Vicente on 10-17-2023 Cholesterol in LDL [Mass/Vol] 30 mg/dL 0-100 [facility] Comment on above: LDL ATP III CLASSIFI CATIONLDL less than 100 mg/dL OptimalLDL 100-129 mg/dL Near or above optimalLDL 130-159 mg/dL Borderline highLDL 160-189 mg/dL HighLDL greater than 189 mg/dL Very high Cholesterol in VLDL Calc [Ma ss/Vol]Ordered By: Ayanna Vicente on 10-17-2023 Cholesterol in VLDL [Mass/Vol] 60 mg/dL [facility] Color Auto (U)Ordered By: Vasile Vicente on 10-17-2023 Color (U) Yellow Yellow [facility] Creatinine [Mass/volume] in Serum or PlasmaOrdered By: Ayanna Vicente on 10-17-2023 Creatinine [Mass/Vol] 1.15 mg/dL 0.60-1.20 [facility] Eosinophils Auto (Bld) [#/Vo l]Ordered By: Ayanna Vicente on 10-17-2023 Eosinophils (Bld) [#/Vol] N/A [facility] Eosinophils/100 WBC Auto (Bl d)Ordered By: Ayanna Vicente on 10-17-2023 Eosinophils/100 WBC (Bld) N/A [facility] Eosinophils/100 WBC Manual c nt (Bld)Ordered By: Ayanna Vicente on 10-17-2023 Eosinophils/100 WBC (Bld) 2 % 1-3 [facility] Erythrocyte distribution wid th Auto (RBC) [Ratio]Ordered By: Ayanna Vicente on 10-17-2023 Erythrocyte distribution width (RBC) [Ratio] 15.2 % 11.9-15.3 [facility] Globulin Calc (S) [Mass/Vol] Ordered By: Ayanna Vicente on 10-17-2023 Globulin (S) [Mass/Vol] 2.6 g/dL F [facility] Glucose [Mass/volume] in Ser um or PlasmaOrdered By: Ayanna Vicente on 10-17-2023 Glucose [Mass/Vol] 162 mg/dL High 70-100 [facility] Comment on above: ADA recommended refe [...] from glycated hemoglobin (Bld) [Mass/Vol] 197 mg/dL [facility] Hematocrit Auto (Bld) [Volum e fraction]Ordered By: Ayanna Vicente on 10-17-2023 Hematocrit (Bld) [Volume fraction] 38.8 % 34.0-46.4 [facility] Hemoglobin A1c percentageOrd ered By: Ayanna Vicente on 10-17-2023 HbA1c (Bld) [Mass fraction] 8.5 % High 4.3-5.6 [facility] Comment on above: Increased risk for d iabetes: 5.7 - 6.4diabetes: >6.4glycemic control for adults with diabetes: <7.0 Hemoglobin [Mass/volume] in BloodOrdered By: Ayanna Vicente on 10-17-2023 Hemoglobin (Bld) [Mass/Vol] 12.2 g/dL 11.8-15.4 [facility] Ketones Auto test strip (U) [Mass/Vol]Ordered By: Ayanna Vicente on 10-17-2023 Ketones (U) [Mass/Vol] Negative Negative [facility] Laboratory - UrinalysisOrder ed By: Ayanna Vicente on 10-17-2023 Hyaline casts LM Ql (Urine sed) None seen [LPF] 0-8 [facility] Leukocytes [#/volume] correc andreina for nucleated erythrocytes in Blood by Automated counOrdered By: Ayanna Vicente on 10-17-2023 WBC corrected for nucl RBC Auto (Bld) [#/Vol] 15.9 10*3/uL High 3.8-11.6 [facility] Lymphocytes Auto (Bld) [#/Vo l]Ordered By: Ayanna Vicente on 10-17-2023 Lymphocytes (Bld) [#/Vol] N/A [facility] Lymphocytes/100 WBC Auto (Bl d)Ordered By: Ayanna Vicente on 10-17-2023 Lymphocytes/100 WBC (Bld) N/A [facility] Lymphocytes/100 WBC Manual c nt (Bld)Ordered By: Ayanna Vicente on 10-17-2023 Lymphocytes/100 WBC (Bld) 51 % High 18-42 [facility] MCH Auto (RBC) [Entitic mass ]Ordered By: Ayanna Vicente on 10-17-2023 MCH (RBC) [Entitic mass] 28.0 pg 24.7-34.3 [facility] MCHC Auto (RBC) [Mass/Vol]Or dered By: Ayanna Vicente on 10-17-2023 MCHC (RBC) [Mass/Vol] 31.5 g/dL Low 32.0-35.0 [facility] MCV Auto (RBC) [Entitic vol] Ordered By: Ayanna Vicente on 10-17-2023 MCV (RBC) [Entitic vol] 89.0 fL 80-[address] [facility] Microalbumin [Mass/volume] i n UrineOrdered By: Ayanna Vicente on 10-17-2023 Albumin DL <= 20 mg/L (U) [Mass/Vol] 1.9 mg/dL High 0.0-1.8 [facility] Microcytes LM Ql (Bld)Ordere d By: Ayanna Vicente on 10-17-2023 Microcytes Ql (Bld) Slight [facility] Monocytes Auto (Bld) [#/Vol] Ordered By: Ayanna Vicente on 10-17-2023 Monocytes (Bld) [#/Vol] N/A F [facility] Monocytes/100 WBC Auto (Bld) Ordered By: Ayanna Vicente on 10-17-2023 Monocytes/100 WBC (Bld) N/A F [facility] Monocytes/100 WBC Manual cnt (Bld)Ordered By: Ayanna Vicente on 10-17-2023 Monocytes/100 WBC (Bld) 8 % 2-[address] [facility] Myelocytes/100 WBC Manual cn t (Bld)Ordered By: Ayanna Vicente on 10-17-2023 Myelocytes/100 WBC (Bld) 1 % High 0-0 [facility] Neutrophils Auto (Bld) [#/Vo l]Ordered By: Ayanna Vicente on 10-17-2023 Neutrophils (Bld) [#/Vol] N/A [facility] Neutrophils/100 WBC Auto (Bl d)Ordered By: Ayanna Vicente on 10-17-2023 Neutrophils/100 WBC (Bld) N/A [facility] Nitrite Test strip Ql (U)Ord ered By: Ayanna Vicente on 10-17-2023 Nitrite Ql (U) Positive High Negative [facility] No Panel InformationOrdered By: Ayanna Vicente on 10-17-2023 Estimated GFR (CKD-EPI) 47.859 mL/Min [facility] Creatinine Clearance (Chem N/A [facility] Nucleated erythrocytes [Pres ence] in Blood by Automated countOrdered By: Ayanna Vicente on 10-17-2023 Nucleated RBC Auto Ql (Bld) N/A [facility] Platelet adequacy [Presence] in Blood by Light microscopyOrdered By: Ayanna Vicente on 10-17-2023 Platelets LM Ql (Bld) Normal Normal [facility] Platelet mean volume Auto (B ld) [Entitic vol]Ordered By: Ayanna Vicente on 10-17-2023 Platelet mean volume (Bld) [Entitic vol] 9.2 fL 6.3-10.7 [facility] Platelet morphology finding [Identifier] in BloodOrdered By: Ayanna Vicente on 10-17-2023 Platelet morphology finding Nom (Bld) Normal Normal [facility] Platelets Auto (Bld) [#/Vol] Ordered By: Ayanna Vicente on 10-17-2023 Platelets (Bld) [#/Vol] 231 10*3/uL 150-450 [facility] Poikilocytosis [Presence] in Blood by Light microscopyOrdered By: Ayanna Vicente on 10-17-2023 Poikilocytosis LM Ql (Bld) Slight [facility] Potassium [Moles/volume] in Serum or PlasmaOrdered By: Ayanna Vicente on 10-17-2023 Potassium [Moles/Vol] 5.1 mmol/L 3.5-5.1 [facility] Protein Auto test strip (U) [Mass/Vol]Ordered By: Ayanna Vicente on 10-17-2023 Protein (U) [Mass/Vol] Trace mg/dL High Negative F [facility] Protein [Mass/volume] in Ser um or PlasmaOrdered By: Ayanna Vicente on 10-17-2023 Protein [Mass/Vol] 6.7 g/dL 6.4-8.9 [facility] RBC Auto (Bld) [#/Vol]Ordere d By: Ayanna Vicente on 10-17-2023 RBC (Bld) [#/Vol] 4.36 10*6/uL 3.60-5.00 [facility] RBC morphologyOrdered By: Vasile Vicente on 10-17-2023 RBC morphology finding Nom (Bld) N/A [facility] Segmented neutrophils/100 WB C Manual cnt (Bld)Ordered By: Ayanna Vicente on 10-17-2023 Segmented neutrophils/100 WBC (Bld) 33 % Low 50-70 [facility] Serum or plasma albumin/glob ulin mass ratioOrdered By: Ayanna Vicente on 10-17-2023 Albumin/Globulin [Mass ratio] 1.6 {ratio} [facility] Serum or plasma anion gap de terminationOrdered By: Ayanna Vicente on 10-17-2023 Anion gap [Moles/Vol] 8.2 mmol/L 6.0-15.0 [facility] Serum or plasma high density lipoprotein (HDL) cholesterol measurementOrdered By: Ayanna Vicente on 10-17-2023 Cholesterol in HDL [Mass/Vol] 40 mg/dL 23-92 [facility] Comment on above: HDL CHOL ATP-III CLA SSIFICATION Cardiovascular RiskHDL > or equal to 60 mg/dL LOWHDL < 40 mg/dL HIGH Serum or plasma total choles terol/high density lipoprotein (HDL) cholesterol mass ratOrdered By: Ayanna Vicente on 10-17-2023 Cholesterol.total/Choles terol in HDL [Mass ratio] 3.3 {ratio} <5.0 [facility] Sodium [Moles/volume] in Ser um or PlasmaOrdered By: Ayanna Vicente on 10-17-2023 Sodium [Moles/Vol] 139 mmol/L 136-145 [facility] Specific gravity Auto test s trip (U) [Rel density]Ordered By: Ayanna Vicente on 10-17-2023 Specific gravity (U) [Rel density] 1.018 1.001-1.030 [facility] Squamous epithelial cells de tection in urine sediment by light microscopyOrdered By: Ayanna Vicente on 10-17-2023 Epithelial cells.squamous LM Ql (Urine sed) 0-1 [HPF] 0-2 [facility] Thyrotropin [Units/volume] i n Serum or PlasmaOrdered By: Ayanna Vicente on 10-17-2023 TSH Qn 1.46 m[IU]/L 0.45-5.33 [facility] Thyroxine (T4) free [Mass/vo lume] in Serum or PlasmaOrdered By: Ayanna Vicente on 10-17-2023 Free T4 [Mass/Vol] 1.02 ng/dL 0.61-1.12 [facility] Triglyceride [Mass/volume] i n Serum or PlasmaOrdered By: Ayanna Vicente on 10-17-2023 Triglyceride [Mass/Vol] 303 mg/dL High 0-[address] [facility] Comment on above: TRIG ATP III CLASSIF ICATIONTRIG less than 150 mg/dL NormalTRIG 150-199 mg/dL Borderline highTRIG 200-500 mg/dL High TRIG greater than 500 mg/dL Very highStandard traceable to the Center for Disease Conrtrol and Prevention (CDC) test method. Triiodothyronine (T3) Free [ Mass/volume] in Serum or PlasmaOrdered By: Ayanna Vicente on 10-17-2023 Free T3 [Mass/Vol] 3.22 pg/mL 2.50-3.90 [facility] Urea nitrogen [Mass/volume] in Serum or PlasmaOrdered By: Ayanna Vicente on 10-17-2023 Urea nitrogen [Mass/Vol] 30 mg/dL High 7-25 [facility] Urine bacteria detection by automated methodOrdered By: Ayanna Vicente on 10-17-2023 Bacteria Auto Ql (U) 4+ High None Seen [facility] Urine clarity by refractomet ry automatedOrdered By: Ayanna Vicente on 10-17-2023 Clarity Refractometry automated (U) Clear Clear [facility] Urine culture routineOrdered By: Ayanna Vicente on 10-17-2023 Bacteria identified Cx Nom (U) Escherichia coli (MDRO) Abnormal [facility] Urine glucose measurement by automated test strip (mass/volume)Ordered By: Ayanna Vicente on 10-17-2023 Glucose Auto test strip (U) [Mass/Vol] Normal mg/dL Normal [facility] Urine hemoglobin detection b y automated test stripOrdered By: Ayanna Vicente on 10-17-2023 Hemoglobin Auto test strip Ql (U) Negative Negative [facility] Urine leukocyte esterase det ection by automated test stripOrdered By: Ayanna Vicente on 10-17-2023 Leukocyte esterase Auto test strip Ql (U) 2+ High Negative [facility] Urobilinogen Auto test strip (U) [Mass/Vol]Ordered By: Ayanna Vicente on 10-17-2023 Urobilinogen (U) [Mass/Vol] Normal mg/dL Normal [facility] Variant lymphocytes/100 WBC Manual cnt (Bld)Ordered By: Ayanna Vicente on 10-17-2023 Variant lymphocytes/100 WBC (Bld) 6 % 0-12 [facility] WBC Auto (Bld) [#/Vol]Ordere d By: Ayanna Vicente on 10-17-2023 WBC (Bld) [#/Vol] 15.9 10*3/uL High 3.8-11.6 [facility] pH Auto test strip (U)Ordere d By: Ayanna Vicente on 10-17-2023 pH (U) 5.5 [pH] 5.0-9.0 [facility] Alanine aminotransferase [En zymatic activity/volume] in Serum or PlasmaOrdered By: Ayanna Vicente on 04-09-2023 ALT [Catalytic activity/Vol] 25 U/L 7-52 [facility] Albumin [Mass/volume] in Ser um or Plasma by Bromocresol green (BCG) dye binding methoOrdered By: Ayanna Vicente on 04-09-2023 Albumin BCG dye [Mass/Vol] 4.2 g/dL 3.5-5.7 [facility] Alkaline phosphatase [Enzyma tic activity/volume] in Serum or PlasmaOrdered By: Ayanna Vicente on 04-09-2023 ALP [Catalytic activity/Vol] 95 U/L 34-104 [facility] Anisocytosis LM Ql (Bld)Orde red By: Ayanna Vicente on 04-09-2023 Anisocytosis Ql (Bld) Slight [facility] Aspartate aminotransferase [ Enzymatic activity/volume] in Serum or PlasmaOrdered By: Ayanna Vicente on 04-09-2023 AST [Catalytic activity/Vol] 21 U/L 13-39 [facility] Basophils Auto (Bld) [#/Vol] Ordered By: Ayanna Vicente on 04-09-2023 Basophils (Bld) [#/Vol] N/A F [facility] Basophils/100 WBC Auto (Bld) Ordered By: Ayanna Vicente on 04-09-2023 Basophils/100 WBC (Bld) N/A F [facility] Bilirubin.total [Mass/volume ] in Serum or PlasmaOrdered By: Ayanna Vicente on 04-09-2023 Bilirubin [Mass/Vol] 0.4 mg/dL 0.3-1.0 [facility] Calcium [Mass/volume] in Ser um or PlasmaOrdered By: Ayanna Vicente on 04-09-2023 Calcium [Mass/Vol] 9.9 mg/dL 8.6-10.3 [facility] Carbon dioxide, total [Moles /volume] in Serum or PlasmaOrdered By: Ayanna Vicente on 04-09-2023 CO2 [Moles/Vol] 31.5 mmol/L 21.0-31.0 [facility] Chloride [Moles/volume] in S ebony or PlasmaOrdered By: Ayanna Vicente on 04-09-2023 Chloride [Moles/Vol] 103 mmol/L 98-107 [facility] Cholesterol [Mass/volume] in Serum or PlasmaOrdered By: Ayanna Vicente on 04-09-2023 Cholesterol [Mass/Vol] 139 mg/dL 140-200 [facility] Comment on above: Chol less than 200 m g/dl low riskChol 201-239 mg/dl borderline riskChol 240 mg/dl and greater high risk Cholesterol in LDL Calc [Mas s/Vol]Ordered By: Ayanna Vicente on 04-09-2023 Cholesterol in LDL [Mass/Vol] 27 mg/dL 0-100 [facility] Comment on above: LDL ATP III CLASSIFI CATIONLDL less than 100 mg/dL OptimalLDL 100-129 mg/dL Near or above optimalLDL 130-159 mg/dL Borderline highLDL 160-189 mg/dL HighLDL greater than 189 mg/dL Very high Cholesterol in VLDL Calc [Ma ss/Vol]Ordered By: Ayanna Vicente on 04-09-2023 Cholesterol in VLDL [Mass/Vol] 69 mg/dL [facility] Creatinine [Mass/volume] in Serum or PlasmaOrdered By: Ayanna Vicente on 04-09-2023 Creatinine [Mass/Vol] 1.06 mg/dL 0.60-1.20 [facility] Eosinophils Auto (Bld) [#/Vo l]Ordered By: Ayanna Vicente on 04-09-2023 Eosinophils (Bld) [#/Vol] N/A [facility] Eosinophils/100 WBC Auto (Bl d)Ordered By: Ayanna Vicente on 04-09-2023 Eosinophils/100 WBC (Bld) N/A [facility] Eosinophils/100 WBC Manual c nt (Bld)Ordered By: Ayanna Vicente on 04-09-2023 Eosinophils/100 WBC (Bld) 5 % 1-3 [facility] Erythrocyte distribution wid th Auto (RBC) [Ratio]Ordered By: Ayanna Vicente on 04-09-2023 Erythrocyte distribution width (RBC) [Ratio] 15.1 % 11.9-15.3 [facility] Globulin Calc (S) [Mass/Vol] Ordered By: Ayanna Vicente on 04-09-2023 Globulin (S) [Mass/Vol] 2.4 g/dL [facility] Glucose [Mass/volume] in Ser um or PlasmaOrdered By: Ayanna Vicente on 04-09-2023 Glucose [Mass/Vol] 154 mg/dL 70-100 [facility] Comment on above: ADA recommended refe [...] from glycated hemoglobin (Bld) [Mass/Vol] 200 mg/dL [facility] Hematocrit Auto (Bld) [Volum e fraction]Ordered By: Ayanna Vicente on 04-09-2023 Hematocrit (Bld) [Volume fraction] 37.2 % 34.0-46.4 [facility] Hemoglobin A1c percentageOrd ered By: Ayanna Vicente on 04-09-2023 HbA1c (Bld) [Mass fraction] 8.6 % 4.3-5.6 [facility] Comment on above: Increased risk for d iabetes: 5.7 - 6.4diabetes: >6.4glycemic control for adults with diabetes: <7.0 Hemoglobin [Mass/volume] in BloodOrdered By: Ayanna Vicente on 04-09-2023 Hemoglobin (Bld) [Mass/Vol] 12.2 g/dL 11.8-15.4 [facility] Leukocytes [#/volume] correc andreina for nucleated erythrocytes in Blood by Automated counOrdered By: Ayanna Vicente on 04-09-2023 WBC corrected for nucl RBC Auto (Bld) [#/Vol] 15.3 10*3/uL 3.8-11.6 [facility] Lymphocytes Auto (Bld) [#/Vo l]Ordered By: Ayanna Vicente on 04-09-2023 Lymphocytes (Bld) [#/Vol] N/A [facility] Lymphocytes/100 WBC Auto (Bl d)Ordered By: Ayanna Vicente on 04-09-2023 Lymphocytes/100 WBC (Bld) N/A [facility] Lymphocytes/100 WBC Manual c nt (Bld)Ordered By: Ayanna Vicente on 04-09-2023 Lymphocytes/100 WBC (Bld) 59 % 18-42 [facility] MCH Auto (RBC) [Entitic mass ]Ordered By: Ayanna Vicente on 04-09-2023 MCH (RBC) [Entitic mass] 29.1 pg 24.7-34.3 [facility] MCHC Auto (RBC) [Mass/Vol]Or dered By: Ayanna Vicente on 04-09-2023 MCHC (RBC) [Mass/Vol] 32.9 g/dL 32.0-35.0 [facility] MCV Auto (RBC) [Entitic vol] Ordered By: Ayanna Vicente on 04-09-2023 MCV (RBC) [Entitic vol] 88.5 fL 80-[address] [facility] Monocytes Auto (Bld) [#/Vol] Ordered By: Ayanna Vicente on 04-09-2023 Monocytes (Bld) [#/Vol] N/A F [facility] Monocytes/100 WBC Auto (Bld) Ordered By: Ayanna Vicente on 04-09-2023 Monocytes/100 WBC (Bld) N/A F [facility] Monocytes/100 WBC Manual cnt (Bld)Ordered By: Ayanna Vicente on 04-09-2023 Monocytes/100 WBC (Bld) 7 % 2-[address] [facility] Myelocytes/100 WBC Manual cn t (Bld)Ordered By: Ayanna Vicente on 04-09-2023 Myelocytes/100 WBC (Bld) 1 % 0-0 [facility] Neutrophils Auto (Bld) [#/Vo l]Ordered By: Ayanna Vicente on 04-09-2023 Neutrophils (Bld) [#/Vol] N/A [facility] Neutrophils/100 WBC Auto (Bl d)Ordered By: Ayanna Vicente on 04-09-2023 Neutrophils/100 WBC (Bld) N/A [facility] No Panel InformationOrdered By: Ayanna Vicente on 04-09-2023 Estimated GFR (CKD-EPI) 53.106 mL/Min [facility] Creatinine Clearance (Chem N/A [facility] Nucleated erythrocytes [Pres ence] in Blood by Automated countOrdered By: Ayanna Vicente on 04-09-2023 Nucleated RBC Auto Ql (Bld) N/A [facility] Ovalocyte detectionOrdered B y: Ayanna Vicente on 04-09-2023 Ovalocytes LM Ql (Bld) [facility] Platelet adequacy [Presence] in Blood by Light microscopyOrdered By: Ayanna Vicente on 04-09-2023 Platelets LM Ql (Bld) Normal Normal [facility] Platelet mean volume Auto (B ld) [Entitic vol]Ordered By: Ayanna Vicente on 04-09-2023 Platelet mean volume (Bld) [Entitic vol] 9.5 fL 6.3-10.7 [facility] Platelet morphology finding [Identifier] in BloodOrdered By: Ayanna Vicente on 04-09-2023 Platelet morphology finding Nom (Bld) Normal Normal [facility] Platelets Auto (Bld) [#/Vol] Ordered By: Ayanna Vicente on 04-09-2023 Platelets (Bld) [#/Vol] 211 10*3/uL 150-450 [facility] Potassium [Moles/volume] in Serum or PlasmaOrdered By: Ayanna Vicente on 04-09-2023 Potassium [Moles/Vol] 5.0 mmol/L 3.5-5.1 [facility] Protein [Mass/volume] in Ser um or PlasmaOrdered By: Ayanna Vicente on 04-09-2023 Protein [Mass/Vol] 6.6 g/dL 6.4-8.9 [facility] RBC Auto (Bld) [#/Vol]Ordere d By: Ayanna Vicente on 04-09-2023 RBC (Bld) [#/Vol] 4.20 10*6/uL 3.60-5.00 [facility] RBC morphologyOrdered By: Vasile Vicente on 04-09-2023 RBC morphology finding Nom (Bld) N/A [facility] Segmented neutrophils/100 WB C Manual cnt (Bld)Ordered By: Ayanna Vicente on 04-09-2023 Segmented neutrophils/100 WBC (Bld) 27 % 50-70 [facility] Serum or plasma albumin/glob ulin mass ratioOrdered By: Ayanna Vicente on 04-09-2023 Albumin/Globulin [Mass ratio] 1.8 {ratio} [facility] Serum or plasma anion gap de terminationOrdered By: Ayanna Vicente on 04-09-2023 Anion gap [Moles/Vol] 10.5 mmol/L 6.0-15.0 [facility] Serum or plasma high density lipoprotein (HDL) cholesterol measurementOrdered By: Ayanna Vicente on 04-09-2023 Cholesterol in HDL [Mass/Vol] 42 mg/dL 23-92 [facility] Comment on above: HDL CHOL ATP-III CLA SSIFICATION Cardiovascular RiskHDL > or equal to 60 mg/dL LOWHDL < 40 mg/dL HIGH Serum or plasma total choles terol/high density lipoprotein (HDL) cholesterol mass ratOrdered By: Ayanna Vicente on 04-09-2023 Cholesterol.total/Choles terol in HDL [Mass ratio] 3.3 {ratio} <5.0 [facility] Sodium [Moles/volume] in Ser um or PlasmaOrdered By: Ayanna Vicente on 04-09-2023 Sodium [Moles/Vol] 140 mmol/L 136-145 [facility] Thyrotropin [Units/volume] i n Serum or PlasmaOrdered By: Ayanna Vicente on 04-09-2023 TSH Qn 1.62 m[IU]/L 0.45-5.33 [facility] Thyroxine (T4) free [Mass/vo lume] in Serum or PlasmaOrdered By: Ayanna Vicente on 04-09-2023 Free T4 [Mass/Vol] 0.78 ng/dL 0.61-1.12 [facility] Triglyceride [Mass/volume] i n Serum or PlasmaOrdered By: Ayanna Vicente on 04-09-2023 Triglyceride [Mass/Vol] 349 mg/dL 0-[address] [facility] Comment on above: TRIG ATP III CLASSIF ICATIONTRIG less than 150 mg/dL NormalTRIG 150-199 mg/dL Borderline highTRIG 200-500 mg/dL High TRIG greater than 500 mg/dL Very highStandard traceable to the Center for Disease Conrtrol and Prevention (CDC) test method. Triiodothyronine (T3) Free [ Mass/volume] in Serum or PlasmaOrdered By: Ayanna Vicente on 04-09-2023 Free T3 [Mass/Vol] 2.71 pg/mL 2.50-3.90 [facility] Urea nitrogen [Mass/volume] in Serum or PlasmaOrdered By: Ayanna Vicente on 04-09-2023 Urea nitrogen [Mass/Vol] 28 mg/dL 7- [facility] Variant lymphocytes/100 WBC Manual cnt (Bld)Ordered By: Ayanna Vicente on 04-09-2023 Variant lymphocytes/100 WBC (Bld) 1 % 0-12 [facility] WBC Auto (Bld) [#/Vol]Ordere d By: Ayanna Vicente on 04-09-2023 WBC (Bld) [#/Vol] 15.3 10*3/uL 3.8-11.6 [facility] Alanine aminotransferase [En zymatic activity/volume] in Serum or PlasmaOrdered By: Ayanna Vicente on 09-30-2022 ALT [Catalytic activity/Vol] 25 U/L 7-52 [facility] Albumin [Mass/volume] in Ser um or Plasma by Bromocresol green (BCG) dye binding methoOrdered By: Ayanna Vicente on 09-30-2022 Albumin BCG dye [Mass/Vol] 4.3 g/dL 3.5-5.7 [facility] Alkaline phosphatase [Enzyma tic activity/volume] in Serum or PlasmaOrdered By: Ayanna Vicente on 09-30-2022 ALP [Catalytic activity/Vol] 97 U/L 34-104 [facility] Anisocytosis LM Ql (Bld)Orde red By: Ayanna Vicente on 09-30-2022 Anisocytosis Ql (Bld) Slight [facility] Aspartate aminotransferase [ Enzymatic activity/volume] in Serum or PlasmaOrdered By: Ayanna Vicente on 09-30-2022 AST [Catalytic activity/Vol] 22 U/L 13-39 [facility] Basophils Auto (Bld) [#/Vol] Ordered By: Ayanna Vicente on 09-30-2022 Basophils (Bld) [#/Vol] 0.0 10*3/uL 0.0-0.2 [facility] Basophils/100 WBC Auto (Bld) Ordered By: Ayanna Vicente on 09-30-2022 Basophils/100 WBC (Bld) 0.3 % . F [facility] Bilirubin.total [Mass/volume ] in Serum or PlasmaOrdered By: Ayanna Vicente on 09-30-2022 Bilirubin [Mass/Vol] 0.3 mg/dL 0.3-1.0 [facility] Calcium [Mass/volume] in Ser um or PlasmaOrdered By: Ayanna Vicente on 09-30-2022 Calcium [Mass/Vol] 9.3 mg/dL 8.6-10.3 [facility] Carbon dioxide, total [Moles /volume] in Serum or PlasmaOrdered By: Ayanna Vicente on 09-30-2022 CO2 [Moles/Vol] 30.4 mmol/L 21.0-31.0 [facility] Chloride [Moles/volume] in S ebony or PlasmaOrdered By: Ayanna Vicente on 09-30-2022 Chloride [Moles/Vol] 104 mmol/L 98-107 [facility] Cholesterol [Mass/volume] in Serum or PlasmaOrdered By: Ayanna Vicente on 09-30-2022 Cholesterol [Mass/Vol] 117 mg/dL 140-200 [facility] Comment on above: Chol less than 200 m g/dl low riskChol 201-239 mg/dl borderline riskChol 240 mg/dl and greater high risk Cholesterol in LDL Calc [Mas s/Vol]Ordered By: Ayanna Vicente on 09-30-2022 Cholesterol in LDL [Mass/Vol] 35 mg/dL 0-100 [facility] Comment on above: LDL ATP III CLASSIFI CATIONLDL less than 100 mg/dL OptimalLDL 100-129 mg/dL Near or above optimalLDL 130-159 mg/dL Borderline highLDL 160-189 mg/dL HighLDL greater than 189 mg/dL Very high Cholesterol in VLDL Calc [Ma ss/Vol]Ordered By: Ayanna Vicente on 09-30-2022 Cholesterol in VLDL [Mass/Vol] 43 mg/dL [facility] Creatinine [Mass/volume] in Serum or PlasmaOrdered By: Ayanna Vicente on 09-30-2022 Creatinine [Mass/Vol] 1.25 mg/dL 0.60-1.20 [facility] Eosinophils Auto (Bld) [#/Vo l]Ordered By: Ayanna Vicente on 09-30-2022 Eosinophils (Bld) [#/Vol] 0.3 10*3/uL 0.0-0.45 [facility] Eosinophils/100 WBC Auto (Bl d)Ordered By: Ayanna Vicente on 09-30-2022 Eosinophils/100 WBC (Bld) 2.3 % . [facility] Erythrocyte distribution wid th Auto (RBC) [Ratio]Ordered By: Ayanna Vicente on 09-30-2022 Erythrocyte distribution width (RBC) [Ratio] 15.4 % 11.9-15.3 [facility] Globulin Calc (S) [Mass/Vol] Ordered By: Ayanna Vicente on 09-30-2022 Globulin (S) [Mass/Vol] 2.4 g/dL F [facility] Glucose [Mass/volume] in Ser um or PlasmaOrdered By: Ayanna Vicente on 09-30-2022 Glucose [Mass/Vol] 135 mg/dL 74-109 [facility] Comment on above: ADA recommended refe [...] from glycated hemoglobin (Bld) [Mass/Vol] 203 mg/dL [facility] Hematocrit Auto (Bld) [Volum e fraction]Ordered By: Ayanna Vicente on 09-30-2022 Hematocrit (Bld) [Volume fraction] 37.0 % 34.0-46.4 [facility] Hemoglobin A1c percentageOrd ered By: Ayanna Vicente on 09-30-2022 HbA1c (Bld) [Mass fraction] 8.7 % 4.3-5.6 [facility] Comment on above: Increased risk for d iabetes: 5.7 - 6.4diabetes: >6.4glycemic control for adults with diabetes: <7.0 Hemoglobin [Mass/volume] in BloodOrdered By: Ayanna Vicente on 09-30-2022 Hemoglobin (Bld) [Mass/Vol] 12.1 g/dL 11.8-15.4 [facility] Laboratory - Chemistry and C hemistry - challengeOrdered By: Ayanna Vicente on 09-30-2022 GFR/1.73 sq M.predicted MDRD (S/P/Bld) [Vol rate/Area] 43.572 mL/min/{1.73_m2} [facility] Leukocytes [#/volume] correc andreina for nucleated erythrocytes in Blood by Automated counOrdered By: Ayanna Vicente on 09-30-2022 WBC corrected for nucl RBC Auto (Bld) [#/Vol] 15.2 10*3/uL 3.8-11.6 [facility] Lymphocytes Auto (Bld) [#/Vo l]Ordered By: Ayanna Vicente on 09-30-2022 Lymphocytes (Bld) [#/Vol] 10.5 10*3/uL 1.00-4.8 [facility] Lymphocytes/100 WBC Auto (Bl d)Ordered By: Ayanna Vicente on 09-30-2022 Lymphocytes/100 WBC (Bld) 69.4 % . [facility] MCH Auto (RBC) [Entitic mass ]Ordered By: Ayanna Vicente on 09-30-2022 MCH (RBC) [Entitic mass] 28.4 pg 24.7-34.3 [facility] MCHC Auto (RBC) [Mass/Vol]Or dered By: Ayanna Vicente on 09-30-2022 MCHC (RBC) [Mass/Vol] 32.7 g/dL 32.0-35.0 [facility] MCV Auto (RBC) [Entitic vol] Ordered By: Ayanna Vicente on 09-30-2022 MCV (RBC) [Entitic vol] 86.9 fL 80-[address] [facility] Microalbumin [Mass/volume] i n UrineOrdered By: Ayanna Vicente on 09-30-2022 Albumin DL <= 20 mg/L (U) [Mass/Vol] 1.9 mg/dL 0.0-1.8 [facility] Monocytes Auto (Bld) [#/Vol] Ordered By: Ayanna Vicente on 09-30-2022 Monocytes (Bld) [#/Vol] 0.7 10*3/uL 0.0-0.8 [facility] Monocytes/100 WBC Auto (Bld) Ordered By: Ayanna Vicente on 09-30-2022 Monocytes/100 WBC (Bld) 4.5 % . F [facility] Neutrophils Auto (Bld) [#/Vo l]Ordered By: Ayanna Vicente on 09-30-2022 Neutrophils (Bld) [#/Vol] 3.6 10*3/uL 1.8-7.7 [facility] Neutrophils/100 WBC Auto (Bl d)Ordered By: Ayanna Vicente on 09-30-2022 Neutrophils/100 WBC (Bld) 23.5 % . [facility] No Panel InformationOrdered By: Ayanna Vicente on 09-30-2022 Pharmacy Creatinine Clearance (Chem N/A [facility] Nucleated erythrocytes [Pres ence] in Blood by Automated countOrdered By: Ayanna Vicente on 09-30-2022 Nucleated RBC Auto Ql (Bld) 0.6 /100{WBC} 0-0.5 [facility] Ovalocyte detectionOrdered B y: Ayanna Vicente on 09-30-2022 Ovalocytes LM Ql (Bld) Slight [facility] Platelet adequacy [Presence] in Blood by Light microscopyOrdered By: Ayanna Vicente on 09-30-2022 Platelets LM Ql (Bld) Normal Normal [facility] Platelet mean volume Auto (B ld) [Entitic vol]Ordered By: Ayanna Vicente on 09-30-2022 Platelet mean volume (Bld) [Entitic vol] 8.9 fL 6.3-10.7 [facility] Platelet morphology finding [Identifier] in BloodOrdered By: Ayanna Vicente on 09-30-2022 Platelet morphology finding Nom (Bld) Normal Normal [facility] Platelets Auto (Bld) [#/Vol] Ordered By: Ayanna Vicente on 09-30-2022 Platelets (Bld) [#/Vol] 230 10*3/uL 150-450 [facility] Poikilocytosis [Presence] in Blood by Light microscopyOrdered By: Ayanna Vicente on 09-30-2022 Poikilocytosis LM Ql (Bld) Slight [facility] Potassium [Moles/volume] in Serum or PlasmaOrdered By: Ayanna Vicente on 09-30-2022 Potassium [Moles/Vol] 4.5 mmol/L 3.5-5.1 [facility] Protein [Mass/volume] in Ser um or PlasmaOrdered By: Ayanna Vicente on 09-30-2022 Protein [Mass/Vol] 6.7 g/dL 6.4-8.9 [facility] RBC Auto (Bld) [#/Vol]Ordere d By: Ayanna Vicente on 09-30-2022 RBC (Bld) [#/Vol] 4.26 10*6/uL 3.60-5.00 [facility] RBC morphologyOrdered By: Vasile Vicente on 09-30-2022 RBC morphology finding Nom (Bld) N/A [facility] Serum or plasma albumin/glob ulin mass ratioOrdered By: Ayanna Vicente on 09-30-2022 Albumin/Globulin [Mass ratio] 1.8 {ratio} [facility] Serum or plasma anion gap de terminationOrdered By: Ayanna Vicente on 09-30-2022 Anion gap [Moles/Vol] 12.1 mmol/L 6.0-15.0 [facility] Serum or plasma high density lipoprotein (HDL) cholesterol measurementOrdered By: Ayanna Vicente on 09-30-2022 Cholesterol in HDL [Mass/Vol] 39 mg/dL 35-85 [facility] Comment on above: HDL CHOL ATP-III CLA SSIFICATION Cardiovascular RiskHDL > or equal to 60 mg/dL LOWHDL < 40 mg/dL HIGH Serum or plasma total choles terol/high density lipoprotein (HDL) cholesterol mass ratOrdered By: Ayanna Vicente on 09-30-2022 Cholesterol.total/Choles terol in HDL [Mass ratio] 3.0 {ratio} <5.0 [facility] Sodium [Moles/volume] in Ser um or PlasmaOrdered By: Ayanna Vicente on 09-30-2022 Sodium [Moles/Vol] 142 mmol/L 136-145 [facility] Thyrotropin [Units/volume] i n Serum or PlasmaOrdered By: Ayanna Vicente on 09-30-2022 TSH Qn 2.04 m[IU]/L 0.45-5.33 [facility] Thyroxine (T4) free [Mass/vo lume] in Serum or PlasmaOrdered By: Ayanna Vicente on 09-30-2022 Free T4 [Mass/Vol] 0.86 ng/dL 0.61-1.12 [facility] Triglyceride [Mass/volume] i n Serum or PlasmaOrdered By: Ayanna Vicente on 09-30-2022 Triglyceride [Mass/Vol] 216 mg/dL 0-[address] [facility] Comment on above: TRIG ATP III CLASSIF ICATIONTRIG less than 150 mg/dL NormalTRIG 150-199 mg/dL Borderline highTRIG 200-500 mg/dL High TRIG greater than 500 mg/dL Very highStandard traceable to the Center for Disease Conrtrol and Prevention (CDC) test method. Triiodothyronine (T3) Free [ Mass/volume] in Serum or PlasmaOrdered By: Ayanna Vicente on 09-30-2022 Free T3 [Mass/Vol] 3.13 pg/mL 2.50-3.90 [facility] Urea nitrogen [Mass/volume] in Serum or PlasmaOrdered By: Ayanna Vicente on 09-30-2022 Urea nitrogen [Mass/Vol] 33 mg/dL 7-25 [facility] WBC Auto (Bld) [#/Vol]Ordere d By: Ayanna Vicente on 09-30-2022 WBC (Bld) [#/Vol] 15.2 10*3/uL 3.8-11.6 [facility] No Panel InformationOrdered By: Ayanna Vicente on 04-23-2022 25-Hydroxy Vitamin D Total 49.9 ng/mL 30-100 [facility] Comment on above: VITAMIN D STATUS 25( [place])VITAMIN D RANGE (ng/mL) Deficient <20 Insufficient 20 to <30Sufficient 30 to 100Reference: Nile CAMPOS,Joon HOPKINS, Chon ROD, et al. Evaluation,treatment, and prevention of vitamin D deficiency; an Endocrine Society clinical practice guideline. JCEM. 2010; 96(7):1911-30. LD LACTATE DEHYDROon 022 LDH [Catalytic activity/Vol] 202 U/L 135 - 214 U/L [facility] Albumin [Mass/volume] in Ser um or PlasmaOrdered By: Ayanna Vicente on 04-01-2022 Albumin [Mass/Vol] 3.5 g/dL 3.2-5.5 [facility] Basophils Auto (Bld) [#/Vol] Ordered By: Ayanna Vicente on 04-01-2022 Basophils (Bld) [#/Vol] N/A [facility] Basophils/100 WBC Auto (Bld) Ordered By: Ayanna Vicente on 04-01-2022 Basophils/100 WBC (Bld) N/A [facility] Blood anisocytosis detection Ordered By: Ayanna Vicente on 04-01-2022 Anisocytosis Ql (Bld) Slight [facility] Blood hemoglobin measurement (mass/volume)Ordered By: Ayanna Vicente on 04-01-2022 Hemoglobin (Bld) [Mass/Vol] 12.3 g/dL 11.8-15.4 [facility] Blood leukocytes automated c ount (number/volume)Ordered By: Ayanna Vicente on 04-01-2022 WBC (Bld) [#/Vol] 12.0 10*3/uL 4.5-11.0 [facility] Cerebrospinal fluid unidenti fied cells/100 leukocytesOrdered By: Ayanna Vicente on 04-01-2022 Unidentified cells/100 WBC (CSF) 2 % 0-0 [facility] Comment on above: PRO LYMPHOCYTE Cholesterol [Mass/volume] in Serum or PlasmaOrdered By: Ayanna Vicente on 04-01-2022 Cholesterol [Mass/Vol] 102 mg/dL 140-200 [facility] Comment on above: Chol less than 200 m g/dl low risk Chol 201-239 mg/dl borderline risk Chol 240 mg/dl and greater high risk Chol less than 200 m g/dl low riskChol 201-239 mg/dl borderline riskChol 240 mg/dl and greater high risk Cholesterol in LDL Calc [Mas s/Vol]Ordered By: Ayanna Vicente on 04-01-2022 Cholesterol in LDL [Mass/Vol] 27 mg/dL 0-100 [facility] Comment on above: LDL ATP III [...] 04-01-2022 Cholesterol in VLDL [Mass/Vol] 25 mg/dL [facility] Creatinine and Glomerular fi ltration rate.predicted panel (S/P/Bld)Ordered By: Ayanna Vicente on 04-01-2022 Creatinine [Mass/Vol] 0.84 mg/dL 0.44-1.03 [facility] Eosinophils Auto (Bld) [#/Vo l]Ordered By: Ayanna Vicente on 04-01-2022 Eosinophils (Bld) [#/Vol] N/A [facility] Eosinophils/100 WBC Auto (Bl d)Ordered By: Ayanna Vicente on 04-01-2022 Eosinophils/100 WBC (Bld) N/A [facility] Erythrocyte distribution wid th Auto (RBC) [Ratio]Ordered By: Ayanna Vicente on 04-01-2022 Erythrocyte distribution width (RBC) [Ratio] 17.0 % 11.9-15.3 [facility] Estimated glomerular filtrat ion rate (GFR) non- AmericanOrdered By: Ayanna Vicente on 04-01-2022 GFR/1.73 sq M.predicted among non-blacks MDRD (S/P/Bld) [Vol rate/Area] > 60 mL/Min [facility] Globulin Calc (S) [Mass/Vol] Ordered By: Ayanna Vicente on 04-01-2022 Globulin (S) [Mass/Vol] 2.9 g/dL F [facility] Glucose mean value [Mass/vol ume] in Blood Estimated from glycated hemoglobinOrdered By: Ayanna Vicente on 04-01-2022 Average glucose Estimated from glycated hemoglobin (Bld) [Mass/Vol] 255 mg/dL [facility] Hematocrit Auto (Bld) [Volum e fraction]Ordered By: Ayanna Vicente on 04-01-2022 Hematocrit (Bld) [Volume fraction] 37.9 % 34.0-46.4 [facility] Hemoglobin A1c percentageOrd ered By: Ayanna Vicente on 04-01-2022 HbA1c (Bld) [Mass fraction] 10.5 % 4.3-5.6 [facility] Comment on above: Increased risk for d iabetes: 5.7 - 6.4 diabetes: >6.4 glycemic control for adults with diabetes: <7.0 Increased risk for d iabetes: 5.7 - 6.4diabetes: >6.4glycemic control for adults with diabetes: <7.0 Laboratory - Hematology and Cell countsOrdered By: Ayanna Vicente on 04-01-2022 Nucleated RBC/100 WBC (Bld) [Ratio] 0.2 % 0-0.5 [facility] Lymphocytes Auto (Bld) [#/Vo l]Ordered By: Ayanna Vicente on 04-01-2022 Lymphocytes (Bld) [#/Vol] N/A [facility] Lymphocytes/100 WBC Auto (Bl d)Ordered By: Ayanna Vicente on 04-01-2022 Lymphocytes/100 WBC (Bld) N/A [facility] Lymphocytes/100 WBC (Bld) 60 % 18-42 [facility] Lymphocytes/100 WBC Manual c nt (Bld)Ordered By: Ayanna Vicente on 04-01-2022 Lymphocytes/100 WBC (Bld) 3 % 0-12 [facility] MCH Auto (RBC) [Entitic mass ]Ordered By: Ayanna Vicente on 04-01-2022 MCH (RBC) [Entitic mass] 28.3 pg 24.7-34.3 [facility] MCHC Auto (RBC) [Mass/Vol]Or dered By: Ayanna Vicente on 04-01-2022 MCHC (RBC) [Mass/Vol] 32.4 g/dL 32.0-35.0 [facility] MCV Auto (RBC) [Entitic vol] Ordered By: Ayanna Vicente on 04-01-2022 MCV (RBC) [Entitic vol] 87.6 fL 80-[address] [facility] Manual blood monocytes/100 l eukocytesOrdered By: Ayanna Vicente on 04-01-2022 Monocytes/100 WBC (Bld) 3 % 1-[address] [facility] Monocytes Auto (Bld) [#/Vol] Ordered By: Ayanna Vicente on 04-01-2022 Monocytes (Bld) [#/Vol] N/A F [facility] Monocytes/100 WBC Auto (Bld) Ordered By: Ayanna Vicente on 04-01-2022 Monocytes/100 WBC (Bld) N/A F [facility] Neutrophils Auto (Bld) [#/Vo l]Ordered By: Ayanna Vicente on 04-01-2022 Neutrophils (Bld) [#/Vol] N/A [facility] Neutrophils/100 WBC Auto (Bl d)Ordered By: Ayanna Vicente on 04-01-2022 Neutrophils/100 WBC (Bld) N/A [facility] No Panel InformationOrdered By: Ayanna Vicente on 04-01-2022 Estimated GFR () > 60 mL/Min [facility] Comment on above: GFR estimated refere nce range: According to KDOQI guidelines, <60 ml/min/1.73m2 is sufficient to diagnose a patient with chronic kidney disease. Pharmacy Creatinine Clearance (Chem N/A [facility] Platelet Estimate Normal Normal [facility] Platelet Morphology Comment Normal Normal [facility] Smudge Cells Few [facility] Platelet mean volume Auto (B ld) [Entitic vol]Ordered By: Ayanna Vicente on 04-01-2022 Platelet mean volume (Bld) [Entitic vol] 9.3 fL 6.3-10.7 [facility] Platelets Auto (Bld) [#/Vol] Ordered By: Ayanna Vicente on 04-01-2022 Platelets (Bld) [#/Vol] 224 10*3/uL 150-450 [facility] Protein [Mass/volume] in Ser um or PlasmaOrdered By: Ayanna Vicente on 04-01-2022 Protein [Mass/Vol] 6.4 g/dL 6.1-7.9 [facility] RBC Auto (Bld) [#/Vol]Ordere d By: Ayanna Vicente on 04-01-2022 RBC (Bld) [#/Vol] 4.33 10*6/uL 3.60-5.00 [facility] RBC morphologyOrdered By: Vasile Vicente on 04-01-2022 RBC morphology finding Nom (Bld) N/A [facility] Segmented neutrophils/100 WB C Manual cnt (Bld)Ordered By: Ayanna Vicente on 04-01-2022 Segmented neutrophils/100 WBC (Bld) 29 % 50-70 [facility] Serum or plasma alanine roman otransferase measurement without P-5'-P (enzymatic activiOrdered By: Ayanna Vicente on 04-01-2022 ALT No additional P-5'-P [Catalytic activity/Vol] 24 U/L 10-60 [facility] Serum or plasma albumin/glob ulin mass ratioOrdered By: Ayanna Vicente on 04-01-2022 Albumin/Globulin [Mass ratio] 1.2 {ratio} [facility] Serum or plasma alkaline mayelin sphatase measurement (enzymatic activity/volume)Ordered By: Ayanna Vicente on 04-01-2022 ALP [Catalytic activity/Vol] 75 U/L 32-92 [facility] Serum or plasma anion gap de terminationOrdered By: Ayanna Vicente on 04-01-2022 Anion gap [Moles/Vol] 15.8 mmol/L 6.0-15.0 [facility] Serum or plasma aspartate am inotransferase measurement (enzymatic activity/volume)Ordered By: Ayanna Vicente on 04-01-2022 AST [Catalytic activity/Vol] 26 U/L 10-42 [facility] Serum or plasma calcium massimo urement (mass/volume)Ordered By: Ayanna Vicente on 04-01-2022 Calcium [Mass/Vol] 9.3 mg/dL 8.2-10.2 [facility] Serum or plasma chloride chris surement (moles/volume)Ordered By: Ayanna Vicente on 04-01-2022 Chloride [Moles/Vol] 103 mmol/L 95-114 [facility] Serum or plasma glucose massimo urement (mass/volume)Ordered By: Ayanna Vicente on 04-01-2022 Glucose [Mass/Vol] 163 mg/dL 70-100 [facility] Comment on above: ADA recommended refe [...] Cholesterol in HDL [Mass/Vol] 50 mg/dL 35-85 [facility] Comment on above: HDL CHOL ATP-III CLA SSIFICATION Cardiovascular Risk HDL > or equal to 60 mg/dL LOW HDL < 40 mg/dL HIGH HDL CHOL ATP-III CLA SSIFICATION Cardiovascular RiskHDL > or equal to 60 mg/dL LOWHDL < 40 mg/dL HIGH Serum or plasma potassium me asurement (moles/volume)Ordered By: Ayanna Vicente on 04-01-2022 Potassium [Moles/Vol] 4.4 mmol/L 3.5-5.1 [facility] Serum or plasma sodium measu rement (moles/volume)Ordered By: Ayanna Vicente on 04-01-2022 Sodium [Moles/Vol] 141 mmol/L 136-146 [facility] Serum or plasma total biliru bin measurement (mass/volume)Ordered By: Ayanna Vicente on 04-01-2022 Bilirubin [Mass/Vol] 0.3 mg/dL 0.3-1.2 [facility] Serum or plasma total carbon dioxide measurement (moles/volume)Ordered By: Ayanna Vicente on 04-01-2022 CO2 [Moles/Vol] 26.6 mmol/L 22.0-30.0 [facility] Serum or plasma total choles terol/high density lipoprotein (HDL) cholesterol mass ratOrdered By: Ayanna Vicente on 04-01-2022 Cholesterol.total/Choles terol in HDL [Mass ratio] 2.0 {ratio} <5.0 [facility] Serum or plasma urea nitroge n measurement (mass/volume)Ordered By: Ayanna Vicente on 04-01-2022 Urea nitrogen [Mass/Vol] 12 mg/dL 9-23 [facility] TSH DL <= 0.005 mIU/L QnOrde red By: Ayanna Vicente on 04-01-2022 TSH Qn 1.11 m[IU]/L 0.45-5.33 [facility] Thyroxine (T4) free [Mass/vo lume] in Serum or PlasmaOrdered By: Ayanna Vicente on 04-01-2022 Free T4 [Mass/Vol] 1.02 ng/dL 0.61-1.12 [facility] Triglyceride [Mass/volume] i n Serum or PlasmaOrdered By: Ayanna Vicente on 04-01-2022 Triglyceride [Mass/Vol] 125 mg/dL 35-[address] [facility] Comment on above: TRIG ATP III [...] 04-01-2022 Free T3 [Mass/Vol] 2.81 pg/mL 2.50-3.90 [facility] Glucose Glucometer (BldC) [M ass/Vol]Ordered By: Galo Max on 01-26-2022 Glucose [Mass/Vol] 117 mg/dL [facility] Comment on above: Random Glucose Refer ence Range is dependent on time and content of last meal. Glucose of more than 200 mg/dL in a nonstressed, ambulatory subject supports the diagnosis of Diabetes Mellitus. Basophils Auto (Bld) [#/Vol] Ordered By: Ashley Ramos on 01-25-2022 Basophils (Bld) [#/Vol] 0.0 10*3/uL 0.0-0.2 [facility] Basophils/100 WBC Auto (Bld) Ordered By: Ashley Ramos on 01-25-2022 Basophils/100 WBC (Bld) 0.3 % . F [facility] Blood hemoglobin measurement (mass/volume)Ordered By: Ashley Ramos on 01-25-2022 Hemoglobin (Bld) [Mass/Vol] 11.0 g/dL 11.8-15.4 [facility] Blood leukocytes automated c ount (number/volume)Ordered By: Ashley Ramos on 01-25-2022 WBC (Bld) [#/Vol] 9.5 10*3/uL 4.5-11.0 [facility] Creatinine and Glomerular fi ltration rate.predicted panel (S/P/Bld)Ordered By: Ashley Ramos on 01-25-2022 Creatinine [Mass/Vol] 0.78 mg/dL 0.44-1.03 [facility] Eosinophils Auto (Bld) [#/Vo l]Ordered By: Ashley Ramos on 01-25-2022 Eosinophils (Bld) [#/Vol] 0.3 10*3/uL 0.0-0.45 [facility] Eosinophils/100 WBC Auto (Bl d)Ordered By: Ashley Ramos on 01-25-2022 Eosinophils/100 WBC (Bld) 3.6 % . [facility] Erythrocyte distribution wid th Auto (RBC) [Ratio]Ordered By: Ashley Ramos on 01-25-2022 Erythrocyte distribution width (RBC) [Ratio] 15.4 % 11.9-15.3 [facility] Estimated glomerular filtrat ion rate (GFR) non- AmericanOrdered By: Ashley Ramos on 01-25-2022 GFR/1.73 sq M.predicted among non-blacks MDRD (S/P/Bld) [Vol rate/Area] > 60 mL/Min [facility] Hematocrit Auto (Bld) [Volum e fraction]Ordered By: Ashley Ramos on 01-25-2022 Hematocrit (Bld) [Volume fraction] 33.2 % 34.0-46.4 [facility] Laboratory - Hematology and Cell countsOrdered By: Ashley Ramos on 01-25-2022 Nucleated RBC/100 WBC (Bld) [Ratio] 0.2 % 0-0.5 [facility] Lymphocytes Auto (Bld) [#/Vo l]Ordered By: Ashley Ramos on 01-25-2022 Lymphocytes (Bld) [#/Vol] 6.4 10*3/uL 1.00-4.8 [facility] Lymphocytes/100 WBC Auto (Bl d)Ordered By: Ashley Ramos on 01-25-2022 Lymphocytes/100 WBC (Bld) 67.6 % . [facility] MCH Auto (RBC) [Entitic mass ]Ordered By: Ashley Ramos on 01-25-2022 MCH (RBC) [Entitic mass] 28.7 pg 24.7-34.3 [facility] MCHC Auto (RBC) [Mass/Vol]Or dered By: Ashley Ramos on 01-25-2022 MCHC (RBC) [Mass/Vol] 33.3 g/dL 32.0-35.0 [facility] MCV Auto (RBC) [Entitic vol] Ordered By: Ashley Ramos on 01-25-2022 MCV (RBC) [Entitic vol] 86.3 fL 80-[address] [facility] Monocytes Auto (Bld) [#/Vol] Ordered By: Ashley Ramos on 01-25-2022 Monocytes (Bld) [#/Vol] 0.7 10*3/uL 0.0-0.8 [facility] Monocytes/100 WBC Auto (Bld) Ordered By: Ashley Ramos on 01-25-2022 Monocytes/100 WBC (Bld) 7.4 % . F [facility] Neutrophils Auto (Bld) [#/Vo l]Ordered By: Ashley Ramos on 01-25-2022 Neutrophils (Bld) [#/Vol] 2.0 10*3/uL 1.8-7.7 [facility] Neutrophils/100 WBC Auto (Bl d)Ordered By: Ashley Ramos on 01-25-2022 Neutrophils/100 WBC (Bld) 21.1 % . [facility] No Panel InformationOrdered By: Ashley Ramos on 01-25-2022 Estimated GFR () > 60 mL/Min [facility] Comment on above: GFR estimated refere nce range: According to KDOQI guidelines, <60 ml/min/1.73m2 is sufficient to diagnose a patient with chronic kidney disease. Pharmacy Creatinine Clearance (Chem 76.46 [facility] Platelet Estimate Normal Normal [facility] Platelet Morphology Comment Normal Normal [facility] Smudge Cells Few [facility] Platelet mean volume Auto (B ld) [Entitic vol]Ordered By: Ashley Ramos on 01-25-2022 Platelet mean volume (Bld) [Entitic vol] 8.6 fL 6.3-10.7 [facility] Platelets Auto (Bld) [#/Vol] Ordered By: Ashley Ramos on 01-25-2022 Platelets (Bld) [#/Vol] 240 10*3/uL 150-450 [facility] RBC Auto (Bld) [#/Vol]Ordere d By: Ashley Ramos on 01-25-2022 RBC (Bld) [#/Vol] 3.84 10*6/uL 3.60-5.00 [facility] RBC morphologyOrdered By: Kendall Ramos on 01-25-2022 RBC morphology finding Nom (Bld) Normal [facility] Serum or plasma calcium massimo urement (mass/volume)Ordered By: Ashley Ramos on 01-25-2022 Calcium [Mass/Vol] 8.7 mg/dL 8.2-10.2 [facility] Serum or plasma chloride chris surement (moles/volume)Ordered By: Ashley Ramos on 01-25-2022 Chloride [Moles/Vol] 101 mmol/L 95-114 [facility] Serum or plasma glucose massimo urement (mass/volume)Ordered By: Ashley Ramos on 01-25-2022 Glucose [Mass/Vol] 133 mg/dL 70-100 [facility] Comment on above: ADA recommended refe [...] on 01-25-2022 Potassium [Moles/Vol] 4.0 mmol/L 3.5-5.1 [facility] Serum or plasma sodium measu rement (moles/volume)Ordered By: Ashley Ramos on 01-25-2022 Sodium [Moles/Vol] 141 mmol/L 136-146 [facility] Serum or plasma total carbon dioxide measurement (moles/volume)Ordered By: Ashley Ramos on 01-25-2022 CO2 [Moles/Vol] 30.7 mmol/L 22.0-30.0 [facility] Serum or plasma urea nitroge n measurement (mass/volume)Ordered By: Ashley Ramos on 01-25-2022 Urea nitrogen [Mass/Vol] 14 mg/dL 9-23 [facility] No Panel InformationOrdered By: Galo Max on 01-24-2022 Bedside Glucose Comment Glu2: cleaned meter [facility] Bacterial blood cultureOrder ed By: James Redding on 01-18-2022 Bacteria identified Cx Nom (Bld) NO GROWTH 5 DAYS [facility] Albumin [Mass/volume] in Ser um or PlasmaOrdered By: Galo Max on 01-16-2022 Albumin [Mass/Vol] 3.1 g/dL 3.2-5.5 [facility] Blood acanthocytes detection by light microscopyOrdered By: Galo Max on 01-16-2022 Acanthocytes LM Ql (Bld) Rare [facility] Globulin Calc (S) [Mass/Vol] Ordered By: Galo Max on 01-16-2022 Globulin (S) [Mass/Vol] 3.0 g/dL F [facility] No Panel InformationOrdered By: Galo Max on 01-16-2022 CBC Comment See comment [facility] Comment on above: Slide referred to pa thologist for review Protein [Mass/volume] in Ser um or PlasmaOrdered By: Galo Max on 01-16-2022 Protein [Mass/Vol] 6.1 g/dL 6.1-7.9 [facility] Serum or plasma alanine roman otransferase measurement without P-5'-P (enzymatic activiOrdered By: Galo Max on 01-16-2022 ALT No additional P-5'-P [Catalytic activity/Vol] 24 U/L 10-60 [facility] Serum or plasma albumin/glob ulin mass ratioOrdered By: Galo Max on 01-16-2022 Albumin/Globulin [Mass ratio] 1.0 {ratio} [facility] Serum or plasma alkaline mayelin sphatase measurement (enzymatic activity/volume)Ordered By: Galo Max on 01-16-2022 ALP [Catalytic activity/Vol] 88 U/L 32-92 [facility] Serum or plasma aspartate am inotransferase measurement (enzymatic activity/volume)Ordered By: Galo Max on 01-16-2022 AST [Catalytic activity/Vol] 23 U/L 10-42 [facility] Serum or plasma prealbumin m easurement (mass/volume)Ordered By: Galo Max on 01-16-2022 Prealbumin [Mass/Vol] 22.1 mg/dL 18.0-38.0 [facility] Serum or plasma total biliru bin measurement (mass/volume)Ordered By: Galo Max on 01-16-2022 Bilirubin [Mass/Vol] 0.6 mg/dL 0.3-1.2 [facility] Creatinine and Glomerular fi ltration rate.predicted panel (S/P/Bld)Ordered By: Bertram Garrison on 01-15-2022 Creatinine [Mass/Vol] 0.80 mg/dL 0.44-1.03 [facility] Comment on above: Delta: 1.35 on 01/14 Estimated glomerular filtrat ion rate (GFR) non- AmericanOrdered By: Bertram Garrison on 01-15-2022 GFR/1.73 sq M.predicted among non-blacks MDRD (S/P/Bld) [Vol rate/Area] > 60 mL/Min [facility] Glucose Glucometer (BldC) [M ass/Vol]Ordered By: Bertram Garrison on 01-15-2022 Glucose [Mass/Vol] 226 mg/dL [facility] Comment on above: Random Glucose Refer ence Range is dependent on time and content of last meal. Glucose of more than 200 mg/dL in a nonstressed, ambulatory subject supports the diagnosis of Diabetes Mellitus. No Panel InformationOrdered By: Bertram Garrison on 01-15-2022 Bedside Glucose Comment Glu2: cleaned meter [facility] Estimated GFR () > 60 mL/Min [facility] Comment on above: GFR estimated refere nce range: According to KDOQI guidelines, <60 ml/min/1.73m2 is sufficient to diagnose a patient with chronic kidney disease. Pharmacy Creatinine Clearance (Chem 75.85 [facility] Serum or plasma calcium massimo urement (mass/volume)Ordered By: Bertram Garrison on 01-15-2022 Calcium [Mass/Vol] 9.2 mg/dL 8.2-10.2 [facility] Serum or plasma chloride chris surement (moles/volume)Ordered By: Bertram Garrison on 01-15-2022 Chloride [Moles/Vol] 99 mmol/L 95-114 [facility] Serum or plasma glucose massimo urement (mass/volume)Ordered By: Bertram Garrison on 01-15-2022 Glucose [Mass/Vol] 293 mg/dL 70-100 [facility] Comment on above: ADA recommended refe rence range Random Glucose Reference Range is dependent on time and content of last meal. Glucose of more than 200 mg/dL in a nonstressed, ambulatory subject supports the diagnosis of Diabetes Mellitus. Serum or plasma potassium me asurement (moles/volume)Ordered By: Bertram Garrison on 01-15-2022 Potassium [Moles/Vol] 4.3 mmol/L 3.5-5.1 [facility] Serum or plasma sodium measu rement (moles/volume)Ordered By: Bertram Garrison on 01-15-2022 Sodium [Moles/Vol] 136 mmol/L 136-146 [facility] Serum or plasma total carbon dioxide measurement (moles/volume)Ordered By: Bertram Garrison on 01-15-2022 CO2 [Moles/Vol] 29.1 mmol/L 22.0-30.0 [facility] Serum or plasma urea nitroge n measurement (mass/volume)Ordered By: Bertram Garrison on 01-15-2022 Urea nitrogen [Mass/Vol] 23 mg/dL 9-23 [facility] Urine culture routineOrdered By: James Redding on 01-15-2022 Bacteria identified Cx Nom (U) Enterococcus faecalis [facility] Basophils Auto (Bld) [#/Vol] Ordered By: Bertram Garrison on 01-14-2022 Basophils (Bld) [#/Vol] 0.1 10*3/uL 0.0-0.2 [facility] Basophils/100 WBC Auto (Bld) Ordered By: Bertram Garrison on 01-14-2022 Basophils/100 WBC (Bld) 0.6 % . F [facility] Blood acanthocytes detection by light microscopyOrdered By: Bertram Garrison on 01-14-2022 Acanthocytes LM Ql (Bld) Few [facility] Blood hemoglobin measurement (mass/volume)Ordered By: Bertram Garrison on 01-14-2022 Hemoglobin (Bld) [Mass/Vol] 11.7 g/dL 11.8-15.4 [facility] Blood leukocytes automated c ount (number/volume)Ordered By: Bertram Garrison on 01-14-2022 WBC (Bld) [#/Vol] 11.5 10*3/uL 4.5-11.0 [facility] Eosinophils Auto (Bld) [#/Vo l]Ordered By: Bertram Garrison on 01-14-2022 Eosinophils (Bld) [#/Vol] 0.4 10*3/uL 0.0-0.45 [facility] Eosinophils/100 WBC Auto (Bl d)Ordered By: Bertram Garrison on 01-14-2022 Eosinophils/100 WBC (Bld) 3.3 % . [facility] Erythrocyte distribution wid th Auto (RBC) [Ratio]Ordered By: Bertram Garrison on 01-14-2022 Erythrocyte distribution width (RBC) [Ratio] 14.4 % 11.9-15.3 [facility] Hematocrit Auto (Bld) [Volum e fraction]Ordered By: Bertram Garrison on 01-14-2022 Hematocrit (Bld) [Volume fraction] 35.4 % 34.0-46.4 [facility] Laboratory - Hematology and Cell countsOrdered By: Bertram Garrison on 01-14-2022 Nucleated RBC/100 WBC (Bld) [Ratio] 0.3 % 0-0.5 [facility] Lymphocytes Auto (Bld) [#/Vo l]Ordered By: Bertram Garrison on 01-14-2022 Lymphocytes (Bld) [#/Vol] 7.2 10*3/uL 1.00-4.8 [facility] Lymphocytes/100 WBC Auto (Bl d)Ordered By: Bertram Garrison on 01-14-2022 Lymphocytes/100 WBC (Bld) 62.9 % . [facility] MCH Auto (RBC) [Entitic mass ]Ordered By: Bertram Garrison on 01-14-2022 MCH (RBC) [Entitic mass] 28.4 pg 24.7-34.3 [facility] MCHC Auto (RBC) [Mass/Vol]Or dered By: Bertram Garrison on 01-14-2022 MCHC (RBC) [Mass/Vol] 32.9 g/dL 32.0-35.0 [facility] MCV Auto (RBC) [Entitic vol] Ordered By: Bertram Garrison on 01-14-2022 MCV (RBC) [Entitic vol] 86.1 fL 80-[address] [facility] Monocytes Auto (Bld) [#/Vol] Ordered By: Bertram Garrison on 01-14-2022 Monocytes (Bld) [#/Vol] 0.6 10*3/uL 0.0-0.8 [facility] Monocytes/100 WBC Auto (Bld) Ordered By: Bertram Garrison on 01-14-2022 Monocytes/100 WBC (Bld) 5.0 % . F [facility] Neutrophils Auto (Bld) [#/Vo l]Ordered By: Bertram Garrison on 01-14-2022 Neutrophils (Bld) [#/Vol] 3.2 10*3/uL 1.8-7.7 [facility] Neutrophils/100 WBC Auto (Bl d)Ordered By: Bertram Garrison on 01-14-2022 Neutrophils/100 WBC (Bld) 28.2 % . [facility] No Panel InformationOrdered By: Bertram Garrison on 01-14-2022 Platelet Estimate Normal Normal [facility] Platelet Morphology Comment Normal Normal [facility] Platelet mean volume Auto (B ld) [Entitic vol]Ordered By: Bertram Garrison on 01-14-2022 Platelet mean volume (Bld) [Entitic vol] 9.8 fL 6.3-10.7 [facility] Platelets Auto (Bld) [#/Vol] Ordered By: Bertram Garrison on 01-14-2022 Platelets (Bld) [#/Vol] 277 10*3/uL 150-450 [facility] RBC Auto (Bld) [#/Vol]Ordere d By: Bertram Garrison on 01-14-2022 RBC (Bld) [#/Vol] 4.11 10*6/uL 3.60-5.00 [facility] RBC morphologyOrdered By: New Garrison on 01-14-2022 RBC morphology finding Nom (Bld) Normal [facility] Albumin [Mass/volume] in Ser um or PlasmaOrdered By: James Redding on 01-13-2022 Albumin [Mass/Vol] 3.1 g/dL 3.2-5.5 [facility] Automated erythrocytes count in urine sediment (number/area)Ordered By: James Redding on 01-13-2022 RBC Auto (Urine sed) [#/Area] 0-1 [HPF] 0-4 [facility] Automated leukocytes count i n urine sediment (number/area)Ordered By: James Redding on 01-13-2022 WBC Auto (Urine sed) [#/Area] 50-100 [HPF] 0-4 [facility] Bilirubin Test strip Ql (U)O rdered By: James Redding on 01-13-2022 Bilirubin Ql (U) 1+ Negative [facility] COVID-19 Positive/NegativeOr dered By: James Redding on 01-13-2022 SARS-CoV-2 (COVID-19) N gene FARRAH+probe Ql (Resp) Negative Negative [facility] Comment on above: Testing for SARS-CoV -2 by RT-PCR This test was developed and its performance characteristics determined by [employer] and validated at the [facility]. This test has not been FDA [...] (COVID-19) Ag IA.rapid Ql (Resp) Negative Negative [facility] Comment on above: This is a duplicate Brianna SARS Antigen (DUSTIN) result to be used for statistical tracking purpose only. Color Auto (U)Ordered By: Anni Redding on 01-13-2022 Color (U) Dark yellow Yellow [facility] Globulin Calc (S) [Mass/Vol] Ordered By: James Redding on 01-13-2022 Globulin (S) [Mass/Vol] 3.0 g/dL F [facility] Ketones Auto test strip (U) [Mass/Vol]Ordered By: James Redding on 01-13-2022 Ketones (U) [Mass/Vol] Trace Negative [facility] Laboratory - UrinalysisOrder ed By: James Redding on 01-13-2022 Hyaline casts LM Ql (Urine sed) 9-19 [LPF] 0-8 [facility] Nitrite Test strip Ql (U)Ord ered By: James Redding on 01-13-2022 Nitrite Ql (U) Negative Negative [facility] No Panel InformationOrdered By: James Redding on 01-13-2022 Smudge Cells Few [facility] SARS Antigen (LFIA) [facility] Protein Auto test strip (U) [Mass/Vol]Ordered By: James Redding on 01-13-2022 Protein (U) [Mass/Vol] 30 mg/dL Negative [facility] Protein [Mass/volume] in Ser um or PlasmaOrdered By: James Redding on 01-13-2022 Protein [Mass/Vol] 6.1 g/dL 6.1-7.9 [facility] Serum or plasma alanine roman otransferase measurement without P-5'-P (enzymatic activiOrdered By: James Redding on 01-13-2022 ALT No additional P-5'-P [Catalytic activity/Vol] 27 U/L 10-60 [facility] Serum or plasma albumin/glob ulin mass ratioOrdered By: James Redding on 01-13-2022 Albumin/Globulin [Mass ratio] 1.0 {ratio} [facility] Serum or plasma alkaline mayelin sphatase measurement (enzymatic activity/volume)Ordered By: James Redding on 01-13-2022 ALP [Catalytic activity/Vol] 95 U/L 32-92 [facility] Serum or plasma aspartate am inotransferase measurement (enzymatic activity/volume)Ordered By: James Redding on 01-13-2022 AST [Catalytic activity/Vol] 27 U/L 10-42 [facility] Serum or plasma total biliru bin measurement (mass/volume)Ordered By: James Redding on 01-13-2022 Bilirubin [Mass/Vol] 0.6 mg/dL 0.3-1.2 [facility] Specific gravity Auto test s trip (U) [Rel density]Ordered By: James Redding on 01-13-2022 Specific gravity (U) [Rel density] 1.029 1.001-1.030 [facility] Squamous epithelial cells de tection in urine sediment by light microscopyOrdered By: James Redding on 01-13-2022 Epithelial cells.squamous LM Ql (Urine sed) 1-2 [HPF] 0-1 [facility] Troponin I.cardiac [Mass/vol ume] in Serum or Plasma by High sensitivity methodOrdered By: James Redding on 01-13-2022 Troponin I.cardiac High sensitivity method [Mass/Vol] 4 pg/mL 0-15 [facility] Urine bacteria detection by automated methodOrdered By: James Redding on 01-13-2022 Bacteria Auto Ql (U) 2+ None Seen [facility] Urine clarity by refractomet ry automatedOrdered By: James Redding on 01-13-2022 Clarity Refractometry automated (U) Cloudy Clear [facility] Urine glucose measurement by automated test strip (mass/volume)Ordered By: James Redding on 01-13-2022 Glucose Auto test strip (U) [Mass/Vol] Normal mg/dL Normal [facility] Urine hemoglobin detection b y automated test stripOrdered By: James Redding on 01-13-2022 Hemoglobin Auto test strip Ql (U) Negative Negative [facility] Urine leukocyte esterase det ection by automated test stripOrdered By: James Redding on 01-13-2022 Leukocyte esterase Auto test strip Ql (U) 3+ Negative [facility] Urobilinogen Auto test strip (U) [Mass/Vol]Ordered By: James Redding on 01-13-2022 Urobilinogen (U) [Mass/Vol] Normal mg/dL Normal [facility] pH Auto test strip (U)Ordere d By: James Redding on 01-13-2022 pH (U) 5.0 [pH] 5.0-9.0 [facility] CARDIAC STRESS/REST INJE CTIONon 01-04-2021 [facility] CARDIAC STRESS/REST INJECTION Patient Name: KATHY WASHBURN STUDY: MYOCARDIAL PERFUSION STRESS TEST WITH LEXISCAN Performing facility: [facility], [address] [place] [address], [address], [address] Provider: Osmel Fernandes MD, FACC PCP: Dr. Lyndon Vicente Supervising provider: Osmel Fernandes MD, [facility] INDICATION: Chest Pain; HTN Hyperlipidemia Diabetes Dyspnea HISTORY: Gender: F; Age: 80 y/o ; Height: 175.26 cm; Weight: 476.5072257 kg. High Cholesterol; Diabetes; HTN; Chest Pain; SOB; Quit smoking Unknown years ago. COMPARISON: Previous nuclear testing completed MPX at [facility]. ACCESSION NUMBER(S): [id number]; [id number]; [id number] ORDERING CLINICIAN: MONET FERNANDES TECHNIQUE: ONE DAY [...] comparison. Electronically signed by: SARAH HODGES MD [facility] Vital Signs Date Time Vital Sign Value Performing Clinician Shamikai [email or web address] 11-10-2024 15:40-0400 Body height 175.26 cm [facility] 11-10-2024 15:40-0400 Body mass index (BMI) [Ratio] 32.9 kg/m2 [facility] 11-10-2024 15:40-0400 Body temperature 97.3 [degF] [facility] 11-10-2024 15:40-0400 Body weight 101.15 kg [facility] 11-10-2024 15:40-0400 Diastolic blood pressure 84 mm[Hg] [facility] 11-10-2024 15:40-0400 Heart rate 74 /min [facility] 11-10-2024 15:40-0400 SaO2% (BldA) [Mass fraction] 94 % [facility] 11-10-2024 15:40-0400 Systolic blood pressure 132 mm[Hg] [facility] 08-16-2024 09:06-0500 Diastolic blood pressure 58 mm[Hg] SUSAN RANDOLPH [facility] 08-16-2024 09:06-0500 Heart rate 69 /min SUSAN RANDOLPH [facility] 08-16-2024 09:06-0500 Respiratory rate 16 /min SUSAN RANDOLPH [facility] 08-16-2024 09:06-0500 Systolic blood pressure 92 mm[Hg] SUSAN RANDOLPH [facility] 08-09-2024 14:16-0500 Body mass index (BMI) [Ratio] 32.93 kg/m2 Esvin Dubon [employer] Work Phone: [facility] 08-09-2024 14:16-0500 Body weight 101.15 kg Esvin Dubon [employer] Work Phone: [facility] 08-09-2024 14:16-0500 Diastolic blood pressure 87 mm[Hg] Esvin Dubon [employer] Work Phone: [facility] 08-09-2024 14:16-0500 Heart rate 64 /min Esvin Dubon [employer] Work Phone: [facility] 08-09-2024 14:16-0500 Systolic blood pressure 125 mm[Hg] Esvin Dubon [employer] Work Phone: [facility] 06-23-2024 14:34-0500 Body height 175.3 cm Moe Itzkowitz DO Work Phone: [facility] 06-23-2024 14:34-0500 Body mass index (BMI) [Ratio] 33.67 kg/m2 Moe Itzkowitz DO Work Phone: [facility] 06-23-2024 14:34-0500 Body weight 103.42 kg Moe Itzkowitz DO Work Phone: [facility] 06-23-2024 14:34-0500 Diastolic blood pressure 85 mm[Hg] Moe Itzkowitz DO Work Phone: [facility] 06-23-2024 14:34-0500 Systolic blood pressure 135 mm[Hg] Moe Betts DO Work Phone: [facility] 06-17-2024 13:58-0500 Body mass index (BMI) [Ratio] 33.82 kg/m2 Christklarissaer Aundrea DO Work Phone: [facility] 06-17-2024 13:58-0500 Body weight 103.87 kg Christopher Aundrea DO Work Phone: [facility] 06-17-2024 13:58-0500 Diastolic blood pressure 74 mm[Hg] Christopher Aundrea DO Work Phone: [facility] 06-17-2024 13:58-0500 Heart rate 84 /min Christopher Aundrea DO Work Phone: [facility] 06-17-2024 13:58-0500 SaO2% (BldA) [Mass fraction] 90 % Christopher Aundrea DO Work Phone: [facility] 06-17-2024 13:58-0500 Systolic blood pressure 138 mm[Hg] Christopher Aundrea DO Work Phone: [facility] 05-26-2024 13:54-0500 Body height 172.7 cm Chad Freitas MD Work Phone: [facility] 05-26-2024 13:54-0500 Body mass index (BMI) [Ratio] 35.31 kg/m2 Chad Freitas MD Work Phone: [facility] 05-26-2024 13:54-0500 Body temperature 97 [degF] Chad Freitas MD Work Phone: [facility] 05-26-2024 13:54-0500 Body weight 105.33 kg Chad Freitas MD Work Phone: [facility] 05-26-2024 13:54-0500 Diastolic blood pressure 51 mm[Hg] Chad Freitas MD Work Phone: [facility] 05-26-2024 13:54-0500 Heart rate 70 /min Chad Freitas MD Work Phone: [facility] 05-26-2024 13:54-0500 Respiratory rate 16 /min Chad Freitas MD Work Phone: [facility] 05-26-2024 13:54-0500 SaO2% (BldA) [Mass fraction] 91 % Chad Freitas MD Work Phone: [facility] 05-26-2024 13:54-0500 Systolic blood pressure 92 mm[Hg] Chad Freitas MD Work Phone: [facility] 05-17-2024 13:00-0500 Body height 172.7 cm Zohaib German MD Work Phone: [facility] 05-17-2024 13:00-0500 Body mass index (BMI) [Ratio] 34.67 kg/m2 Zohaib German MD Work Phone: [facility] 05-17-2024 13:00-0500 Body weight 103.4 kg Zohaib German MD Work Phone: [facility] 05-17-2024 13:00-0500 Diastolic blood pressure 75 mm[Hg] Zohaib German MD Work Phone: [facility] 05-17-2024 13:00-0500 Heart rate 62 /min Zohaib German MD Work Phone: [facility] 05-17-2024 13:00-0500 Systolic blood pressure 117 mm[Hg] Zohaib German MD Work Phone: [facility] 05-12-2024 13:50-0400 Body height 180.34 cm DO Ayanna Vicente Work Phone: [facility] 05-12-2024 13:50-0400 Body mass index (BMI) [Ratio] 32.2 kg/m2 DO Ayanna Vicente Work Phone: [facility] 05-12-2024 13:50-0400 Body weight 104.77 kg DO Ayanna Vicente Work Phone: [facility] 05-12-2024 13:50-0400 Diastolic blood pressure 57 mm[Hg] DO Ayanna Vicente Work Phone: [facility] 05-12-2024 13:50-0400 Heart rate 86 /min DO Ayanna Vicente Work Phone: [facility] 05-12-2024 13:50-0400 SaO2% (BldA) [Mass fraction] 93 % DO Ayanna Vicente Work Phone: [facility] 05-12-2024 13:50-0400 Systolic blood pressure 128 mm[Hg] DO Ayanna Vicente Work Phone: [facility] 05-11-2024 14:45-0400 Body mass index (BMI) [Ratio] 31.9 kg/m2 DO Ayanna Vicente Work Phone: [facility] 05-11-2024 14:45-0400 Body temperature 97.3 [degF] DO Ayanna Vicente Work Phone: [facility] 05-11-2024 14:45-0400 Diastolic blood pressure 70 mm[Hg] DO Ayanna Vicente Work Phone: [facility] 05-11-2024 14:45-0400 Heart rate 76 /min DO Ayanna Vicente Work Phone: [facility] 05-11-2024 14:45-0400 SaO2% (BldA) [Mass fraction] 91 % DO Ayanna Vicente Work Phone: [facility] 05-11-2024 14:45-0400 Systolic blood pressure 116 mm[Hg] DO Ayanna Vicente Work Phone: [facility] 05-11-2024 13:41-0400 Body height 180.34 cm DO Ayanna Vicente Work Phone: [facility] 05-11-2024 13:41-0400 Body weight 103.87 kg DO Ayanna Ogvin Work Phone: [facility] 04-05-2024 08:52-0400 Body height 180.34 cm [facility] 04-05-2024 08:52-0400 Body mass index (BMI) [Ratio] 32.3 kg/m2 [facility] 04-05-2024 08:52-0400 Body temperature 97 [degF] [facility] 04-05-2024 08:52-0400 Body weight 105.23 kg [facility] 04-05-2024 08:52-0400 Diastolic blood pressure 62 mm[Hg] [facility] 04-05-2024 08:52-0400 Heart rate 87 /min [facility] 04-05-2024 08:52-0400 SaO2% (BldA) [Mass fraction] 90 % [facility] 04-05-2024 08:52-0400 Systolic blood pressure 98 mm[Hg] [facility] 03-08-2024 14:43-0400 Body height 180.34 cm [facility] 03-08-2024 14:43-0400 Body mass index (BMI) [Ratio] 32.1 kg/m2 [facility] 03-08-2024 14:43-0400 Body temperature 97 [degF] [facility] 03-08-2024 14:43-0400 Body weight 104.32 kg [facility] 03-08-2024 14:43-0400 Diastolic blood pressure 64 mm[Hg] [facility] 03-08-2024 14:43-0400 Heart rate 73 /min [facility] 03-08-2024 14:43-0400 SaO2% (BldA) [Mass fraction] 95 % [facility] 03-08-2024 14:43-0400 Systolic blood pressure 98 mm[Hg] [facility] 02-24-2024 10:15-0400 Body temperature 97.88 [degF] SUSAN RANDOLPH [facility] 08-13-2024 10:15-0400 Diastolic blood pressure 42 mm[Hg] SUSAN RANDOLPH [facility] 02-24-2024 10:15-0400 Heart rate 68 /min SUSAN RANDOLPH [facility] 02-24-2024 10:15-0400 Respiratory rate 16 /min SUSAN RANDOLPH [facility] 02-24-2024 10:15-0400 Systolic blood pressure 106 mm[Hg] SUSAN RANDOLPH [facility] 02-05-2024 08:08-0400 Body height 180.34 cm [facility] 02-05-2024 08:08-0400 Body mass index (BMI) [Ratio] 32.3 kg/m2 [facility] 02-05-2024 08:08-0400 Body temperature 97.8 [degF] [facility] 02-05-2024 08:08-0400 Body weight 105.23 kg [facility] 02-05-2024 08:08-0400 Diastolic blood pressure 74 mm[Hg] [facility] 02-05-2024 08:08-0400 Heart rate 70 /min [facility] 02-05-2024 08:08-0400 Respiratory rate 18 /min [facility] 02-05-2024 08:08-0400 SaO2% (BldA) [Mass fraction] 98 % [facility] 02-05-2024 08:08-0400 Systolic blood pressure 122 mm[Hg] [facility] 01-12-2024 14:32-0400 Body height 180.34 cm DO Ayanna Vicente Work Phone: [facility] 01-12-2024 14:32-0400 Body mass index (BMI) [Ratio] 30.9 kg/m2 DO Ayanna Vicente Work Phone: [facility] 01-12-2024 14:32-0400 Body temperature 98 [degF] DO Ayanna Vicente Work Phone: [facility] 01-12-2024 14:32-0400 Body weight 100.69 kg DO Ayanna Vicente Work Phone: [facility] 01-12-2024 14:32-0400 Heart rate 61 /min DO Ayanna Vicente Work Phone: [facility] 01-12-2024 14:32-0400 Respiratory rate 18 /min DO Ayanna Vicente Work Phone: [facility] 01-12-2024 14:32-0400 SaO2% (BldA) [Mass fraction] 91 % DO Ayanna Vicente Work Phone: [facility] 10-21-2023 14:45-0400 Body height 180.34 cm DO Ayanna Vicente Work Phone: [facility] 10-21-2023 14:45-0400 Body mass index (BMI) [Ratio] 32.5 kg/m2 DO Ayanna Vicente Work Phone: [facility] 10-21-2023 14:45-0400 Body temperature 97.5 [degF] DO Ayanna Vicente Work Phone: [facility] 10-21-2023 14:45-0400 Body weight 105.68 kg DO Ayanna Vicente Work Phone: [facility] 10-21-2023 14:45-0400 Diastolic blood pressure 76 mm[Hg] DO Ayanna Vicente Work Phone: [facility] 10-21-2023 14:45-0400 Respiratory rate 18 /min DO Ayanna Vicente Work Phone: [facility] 10-21-2023 14:45-0400 SaO2% (BldA) [Mass fraction] 92 % DO Ayanna Vicente Work Phone: [facility] 10-21-2023 14:45-0400 Systolic blood pressure 118 mm[Hg] DO Ayanna Vicente Work Phone: [facility] 08-12-2023 14:20-0500 Body height 180.34 cm [employer] Other [facility] 08-12-2023 14:20-0500 Body mass index (BMI) [Ratio] 32.21 kg/m2 [employer] Other [employer] [facility] [email or web address] Other 08-12-2023 14:20-0500 Body weight 104.78 kg [employer] Other [facility] [email or web address] Other 08-12-2023 14:20-0500 Body weight 104.77 kg DO Ayanna Vicente Work Phone: [facility] 04-15-2023 14:40-0400 Body height 180.34 cm Ayanna Vicente Other [employer] Other 04-15-2023 14:40-0400 Body mass index (BMI) [Ratio] 33.61 kg/m2 Ayanna Earleabbi Other [employer] Other 04-15-2023 14:40-0400 Body temperature 98.8 [degF] Ayanna Vicente Other [employer] Other 04-15-2023 14:40-0400 Body weight 109.32 kg Ayanna Earleabbi Other [employer] Other 04-15-2023 14:40-0400 Diastolic blood pressure 82 mm[Hg] Ayanna Vicente Other [employer] Other 04-15-2023 14:40-0400 Respiratory rate 18 /min Ayanna Vicente Other [employer] Other 04-15-2023 14:40-0400 SaO2% (BldA) [Mass fraction] 93 % Ayanna Vicente Other [employer] Other 04-15-2023 14:40-0400 Systolic blood pressure 128 mm[Hg] Ayanna Vicente Other [employer] Other 02-25-2023 14:40-0400 Body height 180.34 cm Ayanna Vicente Other [employer] Other 02-25-2023 14:40-0400 Body mass index (BMI) [Ratio] 32.91 kg/m2 Ayanna Vicente Other [employer] Other 02-25-2023 14:40-0400 Body temperature 97.9 [degF] Ayanna Vicente Other [employer] Other 02-25-2023 14:40-0400 Body weight 107.05 kg Ayanna Vicente Other [employer] Other 02-25-2023 14:40-0400 Diastolic blood pressure 84 mm[Hg] Ayanna Vicente Other [employer] Other 02-25-2023 14:40-0400 Respiratory rate 18 /min Ayanna Vicente Other [employer] Other 02-25-2023 14:40-0400 SaO2% (BldA) [Mass fraction] 94 % Ayanna Vicente Other [employer] Other 02-25-2023 14:40-0400 Systolic blood pressure 122 mm[Hg] Ayanna Vicente Other [employer] Other 02-11-2023 11:35-0400 Blood Pressure Location SUSAN RANDOLPH [facility] 02-11-2023 11:35-0400 Diastolic blood pressure 67 mm[Hg] SUSAN RANDOLPH [facility] 02-11-2023 11:35-0400 Heart rate 70 /min SUSAN RANDOLPH [facility] 02-11-2023 11:35-0400 Systolic blood pressure 100 mm[Hg] SUSAN RANDOLPH [facility] 02-07-2023 13:28-0400 Body height 177.8 cm Santos Lares MD Work Phone: [facility] 02-07-2023 13:28-0400 Body temperature 97.3 [degF] Santos Lares MD Work Phone: [facility] 02-07-2023 13:28-0400 Body weight 107.96 kg Santos Lares MD Work Phone: [facility] 02-07-2023 13:28-0400 Diastolic blood pressure 72 mm[Hg] Santos Lares MD Work Phone: [facility] 02-07-2023 13:28-0400 Heart rate 74 /min Santos Lares MD Work Phone: [facility] 02-07-2023 13:28-0400 Respiratory rate 20 /min Santos Lares MD Work Phone: [facility] 02-07-2023 13:28-0400 SaO2% (BldA) [Mass fraction] 93 % Santos Lares MD Work Phone: [facility] 02-07-2023 13:28-0400 Systolic blood pressure 122 mm[Hg] Santos Lares MD Work Phone: [facility] 07-19-2022 12:17-0500 Body height 177.8 cm Santos Lares MD Work Phone: [facility] 07-19-2022 12:17-0500 Body temperature 98.01 [degF] Santos Lares MD Work Phone: [facility] 07-19-2022 12:17-0500 Body weight 105.6 kg Santos Lares MD Work Phone: [facility] 07-19-2022 12:17-0500 Diastolic blood pressure 71 mm[Hg] Santos Lares MD Work Phone: [facility] 07-19-2022 12:17-0500 Heart rate 72 /min Santos Lares MD Work Phone: [facility] 07-19-2022 12:17-0500 Respiratory rate 16 /min Santos Lares MD Work Phone: [facility] 07-19-2022 12:17-0500 SaO2% (BldA) [Mass fraction] 93 % Santos Lares MD Work Phone: [facility] 07-19-2022 12:17-0500 Systolic blood pressure 111 mm[Hg] Santos Lares MD Work Phone: [facility] 04-18-2022 11:58-0400 Body height 177.8 cm Santos Lares MD Work Phone: [facility] 04-18-2022 11:58-0400 Body temperature 97.81 [degF] Santos Lares MD Work Phone: [facility] 04-18-2022 11:58-0400 Body weight 102.69 kg Santos Lares MD Work Phone: [facility] 04-18-2022 11:58-0400 Diastolic blood pressure 68 mm[Hg] Santos Lares MD Work Phone: [facility] 04-18-2022 11:58-0400 Heart rate 70 /min Santos Lares MD Work Phone: [facility] 04-18-2022 11:58-0400 Respiratory rate 16 /min Santos Lares MD Work Phone: [facility] 04-18-2022 11:58-0400 SaO2% (BldA) [Mass fraction] 99 % Santos Lares MD Work Phone: [facility] 04-18-2022 11:58-0400 Systolic blood pressure 127 mm[Hg] Santos Lares MD Work Phone: [facility] 04-04-2022 10:59-0400 Body height 177.8 cm Santos Lares MD Work Phone: [facility] 04-04-2022 10:59-0400 Body temperature 97.11 [degF] Santos Lares MD Work Phone: [facility] 04-04-2022 10:59-0400 Body weight 103.78 kg Santos Lares MD Work Phone: [facility] 04-04-2022 10:59-0400 Diastolic blood pressure 73 mm[Hg] Santos Lares MD Work Phone: [facility] 04-04-2022 10:59-0400 Heart rate 68 /min Santos Lares MD Work Phone: [facility] 04-04-2022 10:59-0400 Respiratory rate 16 /min Santos Lares MD Work Phone: [facility] 04-04-2022 10:59-0400 SaO2% (BldA) [Mass fraction] 95 % Santos Lares MD Work Phone: [facility] 04-04-2022 10:59-0400 Systolic blood pressure 138 mm[Hg] Santos Lares MD Work Phone: [facility] 04-02-2022 14:20-0400 Body height 180.34 cm Ayanna Vicente Other [employer] Other 04-02-2022 14:20-0400 Body mass index (BMI) [Ratio] 31.73 kg/m2 Ayanna Vicente Other [employer] Other 04-02-2022 14:20-0400 Body temperature 97.2 [degF] Ayanna Vicente Other [employer] Other 04-02-2022 14:20-0400 Body weight 103.19 kg Ayanna Vicente Other [employer] Other 04-02-2022 14:20-0400 Diastolic blood pressure 76 mm[Hg] Ayanna Vicente Other [employer] Other 04-02-2022 14:20-0400 Respiratory rate 18 /min Ayanna Vicente Other [employer] Other 04-02-2022 14:20-0400 SaO2% (BldA) [Mass fraction] 96 % Ayanna Vicente Other [employer] Other 04-02-2022 14:20-0400 Systolic blood pressure 120 mm[Hg] Ayanna Vicente Other [employer] Other 02-06-2022 14:20-0400 Body height 180.34 cm Ayanna Vicente Other [employer] Other 02-06-2022 14:20-0400 Body mass index (BMI) [Ratio] 31.94 kg/m2 Ayanna Vicente Other [employer] Other 02-06-2022 14:20-0400 Body temperature 97.4 [degF] Ayanna Vicente Other [employer] Other 02-06-2022 14:20-0400 Body weight 103.87 kg Ayanna Vicente Other [employer] Other 02-06-2022 14:20-0400 Diastolic blood pressure 68 mm[Hg] Ayanna Vicente Other [employer] Other 02-06-2022 14:20-0400 Respiratory rate 18 /min Ayanna Vicente Other [employer] Other 02-06-2022 14:20-0400 SaO2% (BldA) [Mass fraction] 93 % Ayanna Vicente Other [employer] Other 02-06-2022 14:20-0400 Systolic blood pressure 114 mm[Hg] Ayanna Sakina Other [place] [employer] Other 01-26-2022 05:00-0400 Body temperature 97.6 [degF] DO Ayanna Vicente Work Phone: [facility] 01-26-2022 05:00-0400 Diastolic blood pressure 77 mm[Hg] DO Ayanna Vicente Work Phone: [facility] 01-26-2022 05:00-0400 Heart rate 64 /min DO Ayanna Vicente Work Phone: [facility] 01-26-2022 05:00-0400 Respiratory rate 16 /min DO Ayanna Vicente Work Phone: [facility] 01-26-2022 05:00-0400 SaO2% (BldA) [Mass fraction] 94 % DO Ayanna Vicente Work Phone: [facility] 01-26-2022 05:00-0400 Systolic blood pressure 116 mm[Hg] DO Ayanna Vicente Work Phone: [facility] 01-23-2022 06:55-0400 Body height 177.8 cm DO Ayanna Vicente Work Phone: [facility] 01-20-2022 06:00-0400 Body weight 109.6 kg DO Ayanna Vicente Work Phone: [facility] 01-15-2022 17:00-0400 Body mass index (BMI) [Ratio] 33 kg/m2 DO Ayanna Vicente Work Phone: [facility] 01-15-2022 15:40-0400 Body temperature 97.9 [degF] DO Ayanna Vicente Work Phone: [facility] 01-15-2022 15:40-0400 Diastolic blood pressure 88 mm[Hg] DO Ayanna Vicente Work Phone: [facility] 01-15-2022 15:40-0400 Heart rate 72 /min DO Ayanna Vicente Work Phone: [facility] 01-15-2022 15:40-0400 Respiratory rate 18 /min DO Ayanna Vicente Work Phone: [facility] 01-15-2022 15:40-0400 SaO2% (BldA) [Mass fraction] 95 % DO Ayanna Vicente Work Phone: [facility] 01-15-2022 15:40-0400 Systolic blood pressure 128 mm[Hg] DO Ayanna Vicente Work Phone: [facility] 01-15-2022 05:11-0400 Body weight 107.9 kg DO Ayanna Vicente Work Phone: [facility] 01-13-2022 19:52-0400 Body height 177.8 cm DO Ayanna Vicente Work Phone: [facility] 01-13-2022 19:52-0400 Body mass index (BMI) [Ratio] 34.9 kg/m2 DO Ayanna Vicente Work Phone: [facility] 12-27-2021 11:10-0400 Body height 180.34 cm Ayanna Vicente Other [employer] Other 12-27-2021 11:10-0400 Body mass index (BMI) [Ratio] 33.12 kg/m2 Ayanna Vicente Other [employer] Other 12-27-2021 11:10-0400 Body temperature 97.3 [degF] Ayanna Vicente Other [employer] Other 12-27-2021 11:10-0400 Body weight 107.73 kg Ayanna Vicente Other [employer] Other 12-27-2021 11:10-0400 Diastolic blood pressure 82 mm[Hg] Ayanna Vicente Other [employer] Other 12-27-2021 11:10-0400 Respiratory rate 20 /min Ayanna Vicente Other [employer] Other 12-27-2021 11:10-0400 SaO2% (BldA) [Mass fraction] 93 % Ayanna Vicente Other [employer] Other 12-27-2021 11:10-0400 Systolic blood pressure 124 mm[Hg] Ayanna Vicente Other [employer] Other 12-17-2021 12:00-0400 Body height 180.34 cm Ayanna Milner Other [employer] Other 12-17-2021 12:00-0400 Body mass index (BMI) [Ratio] 32.21 kg/m2 Ayanna Milner Other [employer] Other 12-17-2021 12:00-0400 Body weight 104.78 kg Ayanna Milner Other [employer] Other 12-17-2021 12:00-0400 Diastolic blood pressure 56 mm[Hg] Ayanna Milner Other [employer] Other 12-17-2021 12:00-0400 Systolic blood pressure 98 mm[Hg] Ayanna Milner Other [employer] Other 04-04-2021 14:20-0400 Body height 180.34 cm Ayanna Vicente Other [employer] Other 04-04-2021 14:20-0400 Body mass index (BMI) [Ratio] 32.35 kg/m2 Ayanna Vicente Other [employer] Other 04-04-2021 14:20-0400 Body temperature 97.7 [degF] Ayanna Vicente Other [employer] Other 04-04-2021 14:20-0400 Body weight 105.24 kg Ayanna Earleabbi Other [employer] Other 04-04-2021 14:20-0400 Diastolic blood pressure 70 mm[Hg] Ayanna Vicente Other [employer] Other 04-04-2021 14:20-0400 Respiratory rate 18 /min Ayanna Vicente Other [employer] Other 04-04-2021 14:20-0400 SaO2% (BldA) [Mass fraction] 97 % Ayanna Vicente Other [employer] Other 04-04-2021 14:20-0400 Systolic blood pressure 114 mm[Hg] Ayanna Vicente Other [employer] Other Encounters Encounter Date Encounter Type Care Provider Facility Start: 02-14-2025 ambulatory PADevyn RANDOLPH Facility:[facility] Start: 11-17-2024 End: 11-17-2024 Telephone encounter Chad Freitas MD Work Phone: [facility] Comment on above: Records faxed Start: 11-10-2024 End: 11-10-2024 ambulatory [facility] Work Phone: Start: 11-10-2024 End: 11-10-2024 Patient encounter procedure [facility] Work Phone: Start: 11-01-2024 Non-patient / Non-visit [facility] Work Phone: Start: 11-01-2024 End: 11-01-2024 ambulatory Som Azul MD Facility: [facility] Start: 10-11-2024 End: 10-11-2024 ambulatory Som Azul MD Facility: [facility] Start: 09-03-2024 End: 09-03-2024 ambulatory Ayanna Vicente Facility:[facility] Start: 09-03-2024 Non-patient / Non-visit Tad Ag DO Work Phone: [facility] Work Phone: Start: 08-16-2024 End: 08-16-2024 ambulatory PA-C SUSAN RANDOLPH Facility: [facility] Start: 08-16-2024 End: 08-16-2024 Patient encounter procedure SUSAN RANDOLPH [facility] Start: 08-16-2024 End: 08-16-2024 ambulatory Som Azul MD Facility: [facility] Start: 08-11-2024 End: 08-11-2024 ambulatory Ayanna Vicente DO Work Phone: [facility] Work Phone: Start: 08-11-2024 End: 08-11-2024 Patient encounter procedure Ayanna Vicente DO Work Phone: [facility] Work Phone: Start: 08-11-2024 Non-patient / Non-visit Ayanna Vicente DO Work Phone: [facility] Work Phone: Start: 08-10-2024 End: 08-10-2024 ambulatory Ayanna Vicente DO Work Phone: [facility] Work Phone: Start: 08-10-2024 End: 08-10-2024 Departed Referred Ayanna Vicente DO Work Phone: [facility] Work Phone: Start: 08-09-2024 End: 08-09-2024 Office outpatient visit 15 minutes Esvin Dubon [employer] Work Phone: [facility] Comment on above: Cognitive impairment (Primary Dx) Start: 08-09-2024 End: 08-09-2024 ambulatory ESVIN DUBON Not Available Start: 08-09-2024 End: 08-09-2024 Bamboo flowsheet Esvin Dubon [employer] Work Phone: [facility] Start: 08-09-2024 End: 08-09-2024 Bamboo flowsheet Esvin Dubon [employer] Work Phone: [facility] Start: 08-04-2024 End: 08-04-2024 ambulatory ESVIN DUBON Not Available Start: 07-26-2024 End: 07-26-2024 ambulatory Smo Azul MD Facility:[facility] Start: 07-12-2024 End: 07-12-2024 ambulatory Som Azul MD Facility:[facility] Start: 06-28-2024 End: 06-28-2024 Bamboo flowsheet Enrique Hammonds PhD Work Phone: [facility] Start: 06-28-2024 End: 06-28-2024 Bamboo flowsheet Enrique Hammonds PhD Work Phone: [facility] Start: 06-28-2024 End: 06-28-2024 Patient encounter procedure Enrique Hammonds PhD Work Phone: [facility] Comment on above: Memory loss (Primary Dx); Concentration deficit; Word finding difficulty; Other chronic pain; Family history of dementia Start: 06-28-2024 End: 06-28-2024 ambulatory ENRIQUE HAMMONDS Not Available Start: 06-23-2024 End: 06-23-2024 ambulatory MOE H ITZKOWIKATERIN Not Available Start: 06-23-2024 End: 06-23-2024 Office outpatient visit 15 minutes Moe H Itzkowitz DO Work Phone: [facility] Comment on above: Diarrhea, unspecifie d type (Primary Dx); Constipation, unspecified constipation type Start: 06-22-2024 End: 06-22-2024 Clinisync Result Encounter Yaircherie Aundrea DO Work Phone: [facility] Unsolicited Start: 06-22-2024 End: 06-22-2024 Clinisync Result Encounter Primoalicia Tranett DO Work Phone: [facility] Unsolicited Start: 06-22-2024 Non-patient / Non-visit Ayanna Vicente DO Work Phone[facility] Work Phone: Start: 06-17-2024 End: 06-17-2024 Bamboo flowsheet Christopher Aundrea DO Work Phone: [facility] Start: 06-17-2024 End: 06-17-2024 Bamboo flowsheet Christopher Aundrea DO Work Phone: [facility] Start: 06-17-2024 End: 06-17-2024 Office outpatient new 45 minutes Yairer Aundrea DO [facility] Comment on above: Cognitive impairment (Primary Dx); Long-term use of high-risk medication Start: 06-17-2024 End: 06-17-2024 ambulatory BABITA GUILLAUME Not Available Start: 06-15-2024 Non-patient / Non-visit Ayanna Vicente DO Work Phone: [facility] Work Phone: Start: 06-15-2024 End: 06-15-2024 ambulatory Tri Vasquez Marker Facility:[facility] Start: 06-15-2024 End: 06-15-2024 Departed Referred Ayanna Vicente DO Work Phone: [facility] Start: 06-14-2024 End: 06-14-2024 ambulatory Som Azul MD Facility:[facility] Start: 06-08-2024 End: 06-08-2024 Chart abstracting Zohaib German MD Work Phone: Rheumatology Start: 06-07-2024 End: 06-07-2024 ambulatory [facility] Start: 05-26-2024 End: 05-26-2024 ambulatory AYANNA VICENTE Facility:[facility] Start: 05-26-2024 Non-patient / Non-visit Ayanna Vicente DO Work Phone: [facility] Work Phone: Start: 05-26-2024 End: 05-26-2024 Office outpatient visit 15 minutes Chad Freitas MD Work Phone: Hematology/Oncology Comment on above: CLL (chronic lymphoc ytic leukemia) (HCC) (Primary Dx) Start: 05-26-2024 End: 05-26-2024 Patient encounter procedure Ayanna Vicente DO Work Phone: [facility] Work Phone: Start: 05-26-2024 End: 05-26-2024 ambulatory Ayanna Vicente DO Work Phone: [facility] Work Phone: Start: 05-18-2024 End: 05-18-2024 Patient encounter procedure DO Ayanna Vicente Work Phone: [facility] Work Phone: Start: 05-18-2024 End: 05-18-2024 ambulatory DO Ayanna Ogabbi Work Phone: [facility] Work Phone: Start: 05-17-2024 End: 05-17-2024 ambulatory ZOHAIB GERMAN Facility:[facility] Start: 05-17-2024 End: 05-17-2024 Patient encounter procedure Zohaib German MD Work Phone: Rheumatology Comment on above: 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); Fibromyalgia; Type 2 diabetes mellitus without complication, with long-term current use of insulin (HCC) Start: 05-12-2024 End: 05-12-2024 ambulatory DO Ayanna Vicente Work Phone: [facility] Work Phone: Start: 05-12-2024 End: 05-12-2024 Patient encounter procedure DO Ayanna Vicente Work Phone: [facility] Work Phone: Start: 05-11-2024 End: 05-11-2024 ambulatory DO Ayanna Vicente Work Phone: [facility] Work Phone: Start: 05-11-2024 End: 05-11-2024 Patient encounter procedure DO Ayanna Vicente Work Phone: [facility] Work Phone: Start: 05-06-2024 End: 05-06-2024 Patient encounter procedure DO Ayanna Vicente Work Phone: [facility] Work Phone: Start: 05-06-2024 End: 05-06-2024 ambulatory DO Ayanna Vicente Work Phone: [facility] Work Phone: Start: 04-05-2024 End: 04-05-2024 ambulatory [facility] Work Phone: Start: 04-05-2024 End: 04-05-2024 Patient encounter procedure [facility] Work Phone: Start: 03-08-2024 End: 03-08-2024 ambulatory [facility] Work Phone: Start: 03-08-2024 End: 03-08-2024 Patient encounter procedure [facility] Work Phone: Start: 02-24-2024 End: 02-24-2024 ambulatory PA-C SUSAN RANDOLPH Facility:[facility] Start: 02-24-2024 End: 02-24-2024 Patient encounter procedure SUSAN RANDOLPH [facility] Start: 02-05-2024 End: 02-05-2024 ambulatory [facility] Work Phone: Start: 02-05-2024 End: 02-05-2024 Patient encounter procedure [facility] Work Phone: Start: 02-04-2024 Non-patient / Non-visit [facility] Work Phone: Start: 02-03-2024 End: 02-03-2024 ambulatory JAMES SMITH Not Available Start: 01-12-2024 End: 01-12-2024 ambulatory DO Ayanna Vicente Work Phone: [facility] Work Phone: Start: 01-12-2024 End: 01-12-2024 Patient encounter procedure DO Ayanna Vicente Work Phone: [facility] Work Phone: Start: 11-17-2023 End: 11-17-2023 ambulatory JAMES SMITH Not Available Start: 10-21-2023 End: 10-21-2023 ambulatory DO Ayanna Vicente Work Phone: [facility] Work Phone: Start: 10-21-2023 End: 10-21-2023 Patient encounter procedure DO Ayanna Vicente Work Phone: [facility] Work Phone: Start: 10-20-2023 Non-patient / Non-visit DO Aftab id Girabbi Work Phone: [facility] Work Phone: Start: 10-17-2023 End: 10-17-2023 ambulatory DO Ayanna Vicente Work Phone: [facility] Work Phone: Start: 10-17-2023 End: 10-17-2023 Patient encounter procedure DO Ayanna Vicente Work Phone: [facility] Work Phone: Start: 10-16-2023 Non-patient / Non-visit DO Aftab id Girabbi Work Phone: [facility] Work Phone: Start: 10-13-2023 Non-patient / Non-visit DO Aftab id Girvin Work Phone: [facility] Work Phone: Start: 08-28-2023 Bamboo flowsheet James reis DPM Work Phone: [facility] Start: 08-28-2023 Bamboo flowsheet James reis DPM Work Phone: [facility] Start: 08-28-2023 End: 08-28-2023 ambulatory JAMES SMITH Not Available Start: 08-28-2023 End: 08-28-2023 Patient encounter procedure James Luquenthal DPM Work Phone: [facility] Comment on above: Onychomycosis (Prima ry Dx); 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); Pain in both feet Start: 08-18-2023 End: 08-18-2023 ambulatory Homa Mckeon Other [employer] Other Start: 08-18-2023 Telephone encounter Homa Mckeon [facility] [employer] Start: 08-12-2023 End: 08-12-2023 ambulatory Homa Mckeon Other [employer] Other Start: 08-12-2023 Office outpatient ne w 45 minutes Homa Mckeon [facility] Start: 08-12-2023 End: 08-12-2023 Patient encounter procedure DO Ayanna Vicente Work Phone: [facility]- Start: 07-16-2023 End: 07-16-2023 ambulatory Ayanna Vicente Other [employer] Other Start: 07-16-2023 Telephone encounter Ayanna Vicente [facility] Start: 05-12-2023 End: 05-12-2023 ambulatory Junior Butterfield Other [employer] Other Start: 05-12-2023 Telephone encounter Junior Butterfield [employer] Start: 05-07-2023 End: 05-07-2023 ambulatory Ayanna Vicente Other [employer] Other Start: 05-07-2023 Telephone encounter Ayanna Vicente [facility] Start: 04-29-2023 End: 04-29-2023 ambulatory Ayanna Vicente Other [employer] Other Start: 04-29-2023 Telephone encounter Ayanna Vicente [facility] Start: 04-25-2023 End: 04-25-2023 ambulatory Ayanna Vicente Other [employer] Other Start: 04-25-2023 Telephone encounter Ayanna Vicente [facility] Start: 04-24-2023 End: 04-24-2023 ambulatory DO Ayanna Vicente Work Phone: [facility] Work Phone: Start: 04-24-2023 End: 04-24-2023 Patient encounter procedure DO Ayanna Vicente Work Phone: [facility] Work Phone: Start: 04-22-2023 End: 04-22-2023 ambulatory Ayanna Vicente Other [employer] Other Start: 04-22-2023 Telephone encounter Ayanna Vicente [facility] Start: 04-15-2023 End: 04-15-2023 ambulatory Ayanna Vicente Other [employer] Other Start: 04-15-2023 Office outpatient vi sit 25 minutes Ayanna Vicente [facility] Start: 04-14-2023 End: 04-14-2023 ambulatory Ayanna Vicente Other [employer] Other Start: 04-14-2023 Telephone encounter Ayanna Vicente [facility] Start: 04-09-2023 End: 04-09-2023 ambulatory DO Ayanna Vicente Work Phone: [facility] Work Phone: Start: 04-09-2023 End: 04-09-2023 Patient encounter procedure DO Ayanna Vicente Work Phone: [facility] Work Phone: Start: 02-25-2023 End: 02-25-2023 ambulatory Ayanna Vicente Other [employer] Other Start: 02-25-2023 Office outpatient vi sit 15 minutes Ayanna Vicente [facility] Start: 02-11-2023 End: 02-11-2023 Patient encounter procedure SUSAN RANDOLPH [facility] Start: 02-07-2023 End: 02-07-2023 ambulatory Santos Lares MD Work Phone: Hematology/Oncology Comment on above: CLL (chronic lymphoc ytic leukemia) (HCC) (Primary Dx) Start: 02-07-2023 End: 02-07-2023 Patient encounter procedure Santos Lares MD Work Phone: [facility] Start: 01-16-2023 End: 01-16-2023 ambulatory Ayanna Viecnte Other [employer] Other Start: 01-16-2023 Telephone encounter Ayanna Vicente [facility] Start: 01-15-2023 End: 01-15-2023 ambulatory Ayanna Vicente Other [employer] Other Start: 01-15-2023 Telephone encounter Ayanna Vicente [facility] Start: 01-07-2023 End: 01-07-2023 ambulatory Ayanna Vicente Other [employer] Other Start: 01-07-2023 Telephone encounter Ayanna Vicente [facility] Start: 01-06-2023 End: 01-06-2023 ambulatory Ayanna Vicente Other [employer] Other Start: 01-06-2023 Telephone encounter Ayanna Vicente [facility] [place] Start: 11-29-[address] AYANNA VICENTE Facilit y:H1 Start: 10-16-2022 End: 10-16-2022 ambulatory Ayanna Vicente Other [facility] Other Start: 10-16-2022 Telephone encounter Ayanna Vicente [facility] Start: 10-02-2022 End: 10-02-2022 ambulatory Ayanna Vicente Other [facility] Other Start: 10-02-2022 Telephone encounter Ayanna Vicente [facility] Start: 09-30-2022 End: 09-30-2022 ambulatory DO Ayanna Vicente Work Phone: [facility] Work Phone: Start: 09-30-2022 End: 09-30-2022 Patient encounter procedure DO Ayanna Vicente Work Phone: [facility]-Lab [address] Work Phone: Start: 09-24-2022 End: 09-24-2022 ambulatory DO Ayanna Vicente Work Phone: [facility] Work Phone: Start: 09-24-2022 End: 09-24-2022 Patient encounter procedure DO Ayanna Vicente Work Phone: [facility]-MRI [address] Work Phone: Start: 09-02-2022 End: 09-02-2022 ambulatory Ayanna Vicente Other [facility] Other Start: 09-02-2022 [facility] Start: 08-29-2022 End: 08-29-2022 ambulatory DO Ayanna Vicente Work Phone: [facility] Work Phone: Start: 08-29-2022 End: 08-29-2022 Patient encounter procedure DO Ayanna Vicente Work Phone: [facility] Work Phone: Start: 08-29-2022 End: 08-29-2022 Patient encounter procedure DO Ayanna Vicente Work Phone: [facility]-MRI [address] Work Phone: Start: 08-12-2022 End: 08-12-2022 ambulatory DO Ayanna Vicente Work Phone: [facility] Work Phone: Start: 08-12-2022 End: 08-12-2022 Patient encounter procedure DO Ayanna Vicente Work Phone: [facility]-XRay [address] Work Phone: Start: 08-05-2022 End: 08-05-2022 ambulatory Ayanna Vicente Other [facility] Other Start: 08-05-2022 Telephone encounter Ayanna Vicente [facility] Start: 08-02-2022 ambulatory Ayanna Vel Ogabbi Faci lity:[id number] Start: 07-24-2022 End: 07-24-2022 ambulatory DO Ayanna Vicente Work Phone: [facility] Work Phone: Start: 07-24-2022 End: 07-24-2022 Patient encounter procedure DO Ayanna Vicente Work Phone: [facility]-Electrodiagnostics Work Phone: Start: 07-19-2022 Telephone encounter Santos justice MD Work Phone: [facility] Comment on above: Referral Information (ENT) Start: 07-19-2022 End: 07-19-2022 ambulatory Santos Lares MD Work Phone: Hematology/Oncology Comment on above: CLL (chronic lymphoc ytic leukemia) (HCC) (Primary Dx); Right ear pain; Rib pain; Axillary adenopathy; Other signs and symptoms in breast ; Encounter for screening mammogram for malignant neoplasm of breast Start: 07-19-2022 End: 07-19-2022 Patient encounter procedure Santos Lares MD Work Phone: [place] Start: 05-31-2022 End: 05-31-2022 ambulatory Ayanna Vicente Other [employer] Other Start: 05-31-2022 Telephone encounter Ayanna Vicente [facility] Start: 05-14-2022 End: 05-14-2022 ambulatory Ayanna Vicente Other [employer] Other Start: 05-14-2022 Telephone encounter Ayanna Vicente [facility] Start: 04-24-2022 End: 04-24-2022 ambulatory Ayanna Vicente Other [employer] Other Start: 04-24-2022 [facility] Start: 04-23-2022 Telephone [facility] Start: 04-23-2022 End: 04-23-2022 ambulatory DO Ayanna Vicente Work Phone: [facility] Other Start: 04-23-2022 End: 04-23-2022 Patient encounter procedure DO Ayanna Vicente Work Phone: [facility]-Lab [facility] Start: 04-18-2022 End: 04-18-2022 ambulatory Santos Lares MD Work Phone: Hematology/Oncology Comment on above: CLL (chronic lymphoc ytic leukemia) (HCC) (Primary Dx) Start: 04-18-2022 End: 04-18-2022 Patient encounter procedure Santos Lares MD Work Phone: [place] Start: 04-10-2022 End: 04-10-2022 ambulatory Ayanna Vicente Other [facility] Other Start: 04-10-2022 Telephone encounter [facility] Start: 04-05-2022 Telephone encounter Niurka Hood Hematology/Oncology Comment on above: Care Coordination (R esults) Start: 04-04-2022 End: 04-04-2022 ambulatory Santos Lares MD Work Phone: Hematology/Oncology Comment on above: Lymphocytosis (Prima ry Dx) Start: 04-04-2022 End: 04-04-2022 Patient encounter procedure Santos Lares MD Work Phone: [place] Start: 04-02-2022 End: 04-02-2022 ambulatory Ayanna Vicente Other [facility] Other Start: 04-02-2022 Office outpatient vi sit 40 minutes Ayanna Vicente [facility] Start: 04-01-2022 End: 04-01-2022 Patient encounter procedure DO Ayanna Vicente Work Phone: [facility] Start: 03-26-2022 End: 03-26-2022 ambulatory Ayanna Vicente Other [facility] Other Start: 03-26-2022 Telephone encounter Ayanna Vicente [facility] Start: 03-19-2022 End: 03-19-2022 ambulatory Ayanna Vicente Other [facility] Other Start: 03-19-2022 Telephone encounter Ayanna Vicente [facility] Start: 03-13-2022 End: 03-13-2022 ambulatory Ayanna Vicente Other [facility] Other Start: 03-13-2022 Telephone encounter Ayanna Vicente [facility] Start: 03-08-2022 End: 03-08-2022 ambulatory Ayanna Vicente Other [facility] Other Start: 03-08-2022 Telephone encounter Ayanna Vicente [facility] Start: 03-07-2022 End: 03-07-2022 ambulatory Ayanna Vicente Other [facility] Other Start: 03-07-2022 Telephone encounter Ayanna Vicente [facility] Start: 02-28-2022 End: 02-28-2022 ambulatory Ayanna Vicente Other [facility] Other Start: 02-28-2022 Telephone encounter Ayanna Vicente [facility] Start: 02-21-2022 End: 02-21-2022 ambulatory Ayanna Vicente Other [facility] Other Start: 02-21-2022 Telephone encounter Ayanna Vicente [facility] Start: 02-18-2022 End: 02-18-2022 ambulatory Ayanna Vicente Other [facility] Other Start: 02-18-2022 Telephone encounter Ayanna Vicente [facility] Start: 02-15-2022 End: 02-15-2022 ambulatory Ayanna Vicente Other [facility] Other Start: 02-15-2022 Telephone encounter Ayanna Vicente [facility] Start: 02-11-2022 End: 02-11-2022 ambulatory Ayanna Vicente Other [facility] Other Start: 02-11-2022 Telephone encounter Ayanna Vicente [facility] Start: 02-06-2022 End: 02-06-2022 ambulatory Ayanna Vicente Other [facility] Other Start: 02-06-2022 Office outpatient vi sit 25 minutes Ayanna Vicente [facility] Start: 01-31-2022 End: 01-31-2022 ambulatory Ayanna Vicente Other [facility] Other Start: 01-31-2022 Telephone encounter Ayanna Vicente [facility] Start: 01-15-2022 End: 01-26-2022 Evaluation and management of inpatient DO Ayanna Vicente Work Phone: [facility] Start: 01-13-2022 End: 01-15-2022 Evaluation and management of inpatient DO Ayanna Vicente Work Phone: [facility] Start: 01-07-2022 End: 01-07-2022 ambulatory Ayanna Vicente Other [facility] Other Start: 01-07-2022 Telephone encounter Ayanna Vicente [facility] Start: 12-27-2021 End: 12-27-2021 ambulatory Ayanna Vicente Other [facility] Other Start: 12-27-2021 Office outpatient vi sit 15 minutes Ayanna Vicente [facility] Start: 12-19-2021 End: 12-19-2021 ambulatory Ayanna Vicente Other [facility] Other Start: 12-19-2021 Telephone encounter Ayanna Vicente [facility] Start: 12-18-2021 End: 12-18-2021 ambulatory Ayanna Milner Other [facility] Other Start: 12-18-2021 Telephone encounter Ayanna Milner [facility] Start: 12-17-2021 End: 12-17-2021 ambulatory Ayanna Milner Other [facility] Other Start: 12-17-2021 Office outpatient ne w 45 minutes Ayanna Milner [facility] Start: 11-12-2021 End: 11-12-2021 ambulatory Ayanna Vicente Other [facility] Other Start: 11-12-2021 Telephone encounter Ayanna Vicente [facility] Start: 10-02-2021 End: 10-02-2021 ambulatory Ayanna Vicente Other [facility] Other Start: 10-02-2021 Telephone encounter Ayanna Vicente [facility] Start: 10-01-2021 End: 10-01-2021 ambulatory Ayanna Vicente Other [facility] Other Start: 10-01-2021 Telephone encounter Ayanna Vicente [facility] Start: 09-17-2021 End: 09-17-2021 ambulatory Ayanna Vicente Other [facility] Other Start: 09-17-2021 Telephone encounter Ayanna Vicente [facility] Start: 09-13-2021 End: 09-13-2021 ambulatory Ayanna Vicente Other [facility] Other Start: 09-13-2021 Telephone encounter Ayanna Vicente [facility] Start: 09-12-2021 End: 09-12-2021 ambulatory Ayanna Vicente Other [facility] Other Start: 09-12-2021 Telephone encounter Ayanna Vicente [facility] Start: 07-18-2021 End: 07-18-2021 ambulatory Ayanna Vicente Other [facility] Other Start: 07-18-2021 Telephone encounter Ayanna Vicente [facility] Start: 06-18-2021 End: 06-18-2021 ambulatory Ayanna Vicente Other [facility] Other Start: 06-18-2021 Telephone encounter Ayanna Vicente [facility] Start: 04-24-2021 Telephone encounter Ayanna Vicente [facility] Start: 04-04-2021 Office outpatient vi sit 25 minutes Ayanna Vicente [facility] Start: 02-08-2021 End: 02-08-2021 Orders Only Dale Espinoza PA-C Work Phone: Orthopaedics Comment on above: Pain in both knees, unspecified chronicity (Primary Dx) Procedures Date Procedure Procedure Detail Performing Clinician Start: 08-10-2024 Urine culture Ayanna go DO Work Phone: Start: 06-22-2024 ALL THYROID STIM HORMONE Babita Guillaume DO Work Phone: Start: 05-26-2024 Plain X-ray of left hip [...] Work Phone: Start: 04-04-2022 CBC + DIFF Santos justice MD Work Phone: Start: 04-04-2022 Lactate dehydrogenase ldh Santos Lares MD Work Phone: Start: 01-21-2022 Duplex [...] RANDOLPH Start: 07-14-2009 Arthroplasty of knee JE JULIETTE RANDOLPH Start: 07-14-1999 Arthroplasty of knee JE JULIETTE RANDOLPH Start: 07-14-1997 History of hernia repair [...] DTaP,Tdap,Td Vaccine (2 - Td or Tdap) [facility] Start: 05-26-2027 Diabetes Screening Diabetes [facility] Start: 08-08-2026 Diabetes Screening [facility] Start: 02-07-2026 DIABETES SCREEN DIABETES SCREEN [facility] Start: 07-19-2025 DIABETES SCREEN DIABETES SCREEN [facility] Start: 11-25-2024 End: 11-25-2024 Patient encounter procedure 11/25/2024 11:20 AM EDT Office Visit Rheumatology [id number] [facility] [place] [address] [place] [address] [place] [address] 6 month follow up Rheumatology Comment on above: 6 month follow up Start: 11-24-2024 End: 11-24-2024 Follow-up encounter 11/24/2024 10:30 AM EDT Visit (SP) Office Hematology/Oncology [address] [place] [address] [place] [address] Chad Freitas MD [address] [place] [address] [place] [address] 6 month follow up Hematology/Oncology Comment on above: 6 month follow up Start: 11-24-2024 End: 11-24-2024 Patient encounter procedure 11/24/2024 10:15 AM EDT Office Visit [facility] [address] [place] [address] [place] [address] 6 month follow up [facility] Comment on above: 6 month follow up Start: 11-15-2024 End: 11-15-2024 Patient encounter procedure 11/15/2024 11:00 AM EDT Office Visit Rheumatology [address] [place] [address] [place] [address] [facility] [place] [address] 6 month follow up Rheumatology Comment on above: 6 month follow up Start: 11-10-2024 Patient referral [facility] Work Phone: Start: 09-16-2024 Covid-19 Vaccine ( season) Covid-19 Vaccine ( season) [facility] Start: 09-03-2024 Urine culture [facility] Start: 08-10-2024 Bacteria identified in Urine by Culture Urine Culture [facility] Start: 08-10-2024 End: 08-10-2024 Urine culture [facility] Start: 08-09-2024 End: 08-09-2024 Patient encounter procedure [facility] [address] Comment on above: Arrived Start: 08-04-2024 End: 08-04-2024 Patient encounter procedure 08/04/2024 11:30 AM EST Office Visit [facility] [address] [address] [place] [id number] [facility] Start: 07-14-2024 Advance Directive Discussion Advance Directive Discussion [facility] Start: 06-28-2024 End: 06-28-2024 [address] [facility] Comment on above: Cognitive impairment Start: 06-23-2024 End: 06-23-2024 Patient encounter procedure 06/23/2024 2:30 PM EST Consult [facility] [address] [facility] [address] [place] [id number] Moe Betts DO [address] [facility] [address] [place] [address] [facility] Start: 06-17-2024 End: 06-17-2025 Cobalamin (Vitamin B12) [Mass/volume] in Serum or Plasma Vitamin B12 Lab Routine Cognitive impairment Long-term use of high-risk medication Expected: 06/17/2024 (Approximate), Expires: 06/17/2025 [facility] Work Phone: Comment on above: Expected: 06/17/2024 (Approximate), Expires: 06/17/2025 Start: 06-17-2024 End: 06-17-2024 Patient encounter procedure 06/17/2024 2:00 PM EST Office Visit [facility] [address] [place] [phone] Babita Guillaume, DO [address] [place] [address] Arrived [facility] Comment on above: Arrived Start: 06-17-2024 End: 06-17-2025 Thyrotropin [Units/volume] in Serum or Plasma TSH Lab Routine Cognitive impairment Long-term use of high-risk medication Expected: 06/17/2024 (Approximate), Expires: 06/17/2025 [facility] Comment on above: Expected: 06/17/2024 (Approximate), Expires: 06/17/2025 Start: 05-11-2024 Patient referral [facility] Work Phone: Start: 05-06-2024 Bacteria identified in Urine by Culture Urine Culture [facility] Start: 04-05-2024 Patient referral [facility] Work Phone: Start: 02-05-2024 Patient referral [facility] Work Phone: Start: 11-17-2023 End: 11-17-2023 Patient encounter procedure 11/17/2023 1:15 PM EDT Procedure Visit [facility] [address] [place] [phone] James Smith DPM [address] [place] [address] [facility] Start: 10-17-2023 Bacteria identified in Urine by Culture [facility] Start: 08-18-2023 Shingrix Vaccine (2 of 2) Rodriguez grix Vaccine (2 of 2) [facility] Start: 08-10-2023 End: 10-10-2023 CBC W Auto Differential panel - Blood CBC + DIFF Lab Routine CLL (chronic lymphocytic leukemia) (HCC) Expected: 08/10/2023 (Approximate), Expires: 10/10/2023 [facility] Work Phone: Comment on above: Expected: 08/10/2023 (Approximate), Expires: 10/10/2023 Start: 08-10-2023 End: 10-10-2023 Comprehensive metabolic 2000 panel - Serum or Plasma COMP METABOLIC PANEL Lab Routine CLL (chronic lymphocytic leukemia) (HCC) Expected: 08/10/2023 (Approximate), Expires: 10/10/2023 [facility] Work Phone: Comment on above: Expected: 08/10/2023 (Approximate), Expires: 10/10/2023 Start: 07-14-2023 Advance Directive Discussion Advance Directive Discussion [facility] Start: 03-14-2023 Influenza vaccination [facility] Start: 01-16-2023 End: 03-18-2023 CBC W Auto Differential panel - Blood CBC + DIFF Lab Routine CLL (chronic lymphocytic leukemia) (HCC) Expected: 01/16/2023 (Approximate), Expires: 03/18/2023 [facility] Work Phone: Comment on above: Expected: 01/16/2023 (Approximate), Expires: 03/18/2023 Start: 01-16-2023 End: 03-18-2023 Comprehensive metabolic 2000 panel - Serum or Plasma COMP METABOLIC PANEL Lab Routine CLL (chronic lymphocytic leukemia) (HCC) Expected: 01/16/2023 (Approximate), Expires: 03/18/2023 [facility] Work Phone: Comment on above: Expected: 01/16/2023 (Approximate), Expires: 03/18/2023 Start: 08-19-2022 COVID-19 VACCINE (5 - Pfizer series) COVID-19 VACCINE (5 - Pfizer series) [facility] Start: 07-26-2022 End: 08-18-2023 Us breast uni real time with image limited US BREAST LTD LT Radiology Routine Axillary adenopathy Other signs and symptoms in breast Expected: 07/26/2022, Expires: 08/18/2023 [facility] Work Phone: Comment on above: Expected: 07/26/2022 , Expires: 08/18/2023 Start: 07-19-2022 End: 09-18-2022 CBC W Auto Differential panel - Blood CBC + DIFF Lab Routine CLL (chronic lymphocytic leukemia) (HCC) Expected: 07/19/2022 (Approximate), Expires: 09/18/2022 [facility] Work Phone: Comment on above: Expected: 07/19/2022 (Approximate), Expires: 09/18/2022 Start: 07-19-2022 End: 09-18-2022 Comprehensive metabolic 2000 panel - Serum or Plasma COMP METABOLIC PANEL Lab Routine CLL (chronic lymphocytic leukemia) (HCC) Expected: 07/19/2022 (Approximate), Expires: 09/18/2022 [facility] Work Phone: Comment on above: Expected: 07/19/2022 (Approximate), Expires: 09/18/2022 Start: 07-19-2022 End: 09-18-2022 Lactate dehydrogenase [Enzymatic activity/volume] in Serum or Plasma LD LACTATE DEHYDRO Lab Routine CLL (chronic lymphocytic leukemia) (HCC) Expected: 07/19/2022 (Approximate), Expires: 09/18/2022 [facility] Work Phone: Comment on above: Expected: 07/19/2022 (Approximate), Expires: 09/18/2022 Start: 07-14-2022 ADVANCE DIRECTIVE DISCUSSION ADVANCE DIRECTIVE DISCUSSION [facility] Start: 07-14-2022 DEPRESSION ASSESSMENT DEPRESSION ASS ESSMENT [facility] Start: 04-04-2022 End: 06-04-2022 [id number] [Mass/volume] in Serum or Plasma [facility] Work Phone: Comment on above: Expected: 04/04/2022 , Expires: 06/04/2022 Start: 04-04-2022 End: 06-04-2022 Chronic hepatitis differentiation between hepatitis B and C virus panel - Serum or Plasma [facility] Work Phone: Comment on above: Expected: 04/04/2022 , Expires: 06/04/2022 Start: 04-04-2022 End: 06-04-2022 FLOW CYTOMETRY PERIPHERAL BLOOD LEUK/LYMPH (FCLEUK) [facility] Work Phone: Comment on above: Expected: 04/04/2022 , Expires: 06/04/2022 Start: 03-14-2022 Influenza vaccination INFLUENZA (#1) [facility] Start: 01-24-2022 [facility] Start: 01-21-2022 Consultation [facility] Start: 01-15-2022 Hospital admission [facility] Start: 01-15-2022 Referral to clinical named account executive [facility] Start: 01-15-2022 [facility] Work Phone: Start: 01-13-2022 Hospital admission [facility] Work Phone: Start: 07-27-2021 COVID-19 VACCINE (4 - Booster for Pfizer series) COVID-19 VACCINE (4 - Booster for Pfizer series) [facility] Start: 07-14-2021 ADVANCE DIRECTIVE DISCUSSION ADVANCE DIRECTIVE DISCUSSION [facility] Start: 07-14-2021 DEPRESSION ASSESSMENT DEPRESSION ASS ESSMENT [facility] Start: 03-14-2021 Influenza vaccination INFLUENZA (#1) [facility] Start: 2007 ADVANCE DIRECTIVE DISCUSSION ADVANCE DIRECTIVE DISCUSSION [facility] Start: 2007 BONE DENSITY BONE DENSITY [facility] Start: 2007 PNEUMOCOCCAL: 65+ (1 - PCV) PNEUMOCOCCAL: 65+ (1 - PCV) [facility] Start: 2007 PNEUMOVAX AGE 65 AND OVER WITH 5YR LOOKBACK (#1) PNEUMOVAX AGE 65 AND OVER WITH 5YR LOOKBACK (#1) [facility] Start: 2007 Screening for osteoporosis Bone Density Screening [facility] Start: 1992 Screening for malign ant neoplasm of colon [facility] Start: 1992 SHINGRIX VACCINE (1 of 2) RODRIGUEZ GRIX VACCINE (1 of 2) [facility] Start: 1987 DIABETES SCREEN DIABETES SCREEN [facility] Start: 1961 SHINGRIX VACCINE (1 of 2) RODRIGUEZ GRIX VACCINE (1 of 2) [facility] Start: 1961 Urine microalbumin profile DTAP,TDAP,TD (1 - Tdap) [facility] Start: 1960 Anxiety Screening Anxiety Screening [facility] Start: 1960 Depression Screening Depression Scre ening [facility] Start: 1960 HEPATITIS C SCREENING HEPATITIS C [facility] Start: 1954 Adult depression screening assessment DEPRESSION SCREENING [facility] Start: 1954 COVID-19 VACCINE (1) COVID-19 VACCIN E (1) [facility] Start: 1948 PNEUMOCOCCAL: 65+ (1 - PCV) PNEUMOCOCCAL: 65+ (1 - PCV) [facility] Bacteria identified in Urine by Culture [facility] CBC W Auto Different ial panel - Blood CBC + DIFF Lab Routine Lymphocytosis 04/04/2022 11:00 AM EDT [facility] Work Phone: CBC W Auto Different ial panel - Blood COMPLETE BLOOD COUNT AND DIFFERENTIAL Lab Routine CLL (chronic lymphocytic leukemia) (HCC) 05/26/2024 2:20 PM EST [facility] Work Phone: Comprehensive metabo lic 1999 panel - Serum or Plasma [facility] Comprehensive metabo lic 2000 panel - Serum or Plasma [facility] Comprehensive metabo lic 1999 panel - Serum or Plasma [facility] FLOW CYTOMETRY PERIP HERAL BLOOD LEUK/LYMPH (FCLEUK) FLOW CYTOMETRY PERIPHERAL BLOOD LEUK/LYMPH (FCLEUK) Lab Routine Lymphocytosis 04/04/2022 11:02 AM [facility] Work Phone: FLOW SLIDE FLOW SLIDE Lab R outine Lymphocytosis 04/04/2022 11:02 AM [facility] Work Phone: Glucose measurement estimated from glycated hemoglobin [facility] Hepatitis B virus co re Ab [Presence] in Serum HEP B CORE AB TOTAL Lab Routine Lymphocytosis 04/04/2022 11:00 AM [facility] Work Phone: Hepatitis B virus noe rface Ab [Presence] in Serum HEP B SURF AB QUAL Lab Routine Lymphocytosis 04/04/2022 11:00 AM [facility] Work Phone: Hepatitis B virus noe rface Ab [Presence] in Serum by Immunoassay HEP B SURF AG SCRN Lab Routine Lymphocytosis 04/04/2022 11:00 AM [facility] Work Phone: Hepatitis C virus Ab [Presence] in Serum HEP C AB IA W/CONF SCRN Lab Routine Lymphocytosis 04/04/2022 11:00 AM [facility] Work Phone: End: 08-18-2023 SONYA SCREENING W NEYDA SONYA SCREENING W NEYDA Radiology Routine Encounter for screening mammogram for malignant neoplasm of breast 1 Occurrences starting 07/19/2022 until 08/18/2023 [facility] Work Phone: Comment on above: 1 Occurrences starti ng 07/19/2022 until 08/18/2023 MG Breast - bilatera l Screening [facility] Patient Education Wrist Fracture (DC) [facility] Work Phone: Patient referral [facility] Work Phone: End: 03-10-2022 Radiologic exam knee complete 4/more views XR KNEE GENERAL 4V AP BOTH/PA BOTH/LAT/MERC BILAT Radiology Routine Pain in both knees, unspecified chronicity 1 Occurrences starting 02/08/2021 until 03/10/2022 [facility] Comment on above: 1 Occurrences starti ng 02/08/2021 until 03/10/2022 End: 03-10-2022 Radiologic examination pelvis 1/2 views XR PELVIS 1V AP Radiology Routine Pain in both knees, unspecified chronicity 1 Occurrences starting 02/08/2021 until 03/10/2022 [facility] Comment on above: 1 Occurrences starti ng 02/08/2021 until 03/10/2022 Serum fructosamine measurement [facility] Work Phone: Urine culture [facility] Urine culture [facility] XR Hip - left 2 Views [facility] XR Knee - left 4 Views [facility] End: 08-18-2023 XR RIBS/CHEST 3V AP RIB/OBLS/CXR LEFT XR RIBS/CHEST 3V AP RIB/OBLS/CXR LEFT Radiology Routine Rib pain 1 Occurrences starting 07/19/2022 until 08/18/2023 [facility] Work Phone: Comment on above: 1 Occurrences starti ng 07/19/2022 until 08/18/2023 [facility] Immun[facility] Immunization Date Immunization Notes Care Provider Fa cility 03-19-2024 COVID-19 (PFIZER) 12Y and older Ayanna Vicente DO Work Phone: [facility] 03-19-2024 influenza virus vaccine, unspecified formulation SUSAN RANDOLPH [facility] 03-19-2024 influenza, high dose seasonal, preservative-free Ayanna Vicente DO Work Phone: [facility] 06-23-2023 COVID-19 (PFIZER) 12Y and older [facility] 06-23-2023 Pneumococcal Conjuga te Vaccine, 20 valent [facility] 06-23-2023 RSV, preF3, adj, pf [facility] 06-23-2023 zoster vaccine recombinant [facility] 04-15-2023 influenza, high dose seasonal, preservative-free Ayanna Vicente Other [facility] [email or web address] Other 04-15-2023 Fluzone QIV High-Dos e 65YR+ [facility] 04-15-2023 influenza virus vaccine, unspecified formulation James Smith DPM Work Phone: [facility] 04-22-2022 pneumococcal polysaccharide vaccine, 23 valent Ayanna Vicente Other [facility] 04-18-2022 COVID-19 mRNA Bivale nt Booster (Pfizer) [facility] 01-13-2022 tetanus toxoid, redu paola diphtheria toxoid, and acellular pertussis vaccine, adsorbed Ayanna Vicente Other [facility] 06-01-2021 COVID-19 Vaccine Pfi zer - Documentation Purposes Only Ayanna Vicente Other [facility] 04-25-2021 influenza virus vaccine, unspecified formulation SUSAN RANDOLPH [facility] 04-04-2021 influenza, high dose seasonal, preservative-free Ayanna Vicente Other [facility] [email or web address] Other 04-04-2021 influenza virus vaccine, unspecified formulation DO Ayanna Vicente Work Phone: [facility] 04-04-2021 Influenza, High-dose Seasonal, Quadrivalent, Preservative Free James Smith DPM Work Phone: [facility] 09-01-2020 COVID-19 Vaccine Pfi zer - Documentation Purposes Only Ayanna Vicente Other [facility] 09-01-2020 SARS-CoV-2 (COVID-19 ) mRNA-1273 vaccine SUSAN RANDOLPH [facility] 08-11-2020 COVID-19 Vaccine Pfi zer - Documentation Purposes Only Ayanna Vicente Other [facility] 08-11-2020 SARS-CoV-2 (COVID-19 ) [id number] vaccine SUSAN RANDOLPH [facility] 03-14-2020 influenza virus vaccine, unspecified formulation SUSAN RANDOLPH [facility] 07-14-2019 pneumococcal conjuga te vaccine, 13 valent [facility] 04-03-2019 influenza virus vaccine, unspecified formulation SUSAN RANDOLPH [facility] 04-03-2019 Seasonal trivalent influenza vaccine, adjuvanted, preservative free [facility] 04-03-2019 pneumococcal polysaccharide vaccine, 23 valent Ayanna Vicente Other [facility] 04-03-2019 influenza, seasonal, injectable Ayanna Vicente Other [facility] 05-25-2018 influenza virus vaccine, unspecified formulation SUSAN RANDOLPH [facility] 05-25-2018 Influenza, injectabl e, Madin Anjelica Canine Kidney, preservative free, quadrivalent [facility] 05-25-2018 influenza, seasonal, injectable Ayanna Vicente Other [facility] 04-22-2018 Kenalog -40 mg Ayanna Vicente Other [employer] Other Payers Date Payer Category Payer Self-pay [id number] 2022 Unknown [id number] 2020 Private Health Insurance [facility] AAR SUPPLEMENT [id number] 2020-Present Indemnity [id number] 2020 Private Health Insurance [id number] .[id number] 2007 Medicare MEDICARE MEDICAR E A AND B [id number] 2007-Present [place] Medicare [id number] 2007 Medicare [id number] .[id number] 1959 Medicare [id number] 2.16.840.1.384964.19 1959 Unknown [id number] 2.16.840.1.922353.19 1942 Unknown [id number] 2.16.840.1.917653.3.579.2 .356 1942 Unknown [id number] 2.16.840.1.762375.3.579.2 .593 1942 Unknown [id number] 2.16.840.1.882236.3.579.2 .1259 1942 Unknown [id number] 2.16.840.1.065857.3.579.2 .1259 1942 Unknown [id number] 2.16.840.1.388844.3.579.2 .1259 1942 Unknown [id number] 2.16.840.1.021843.3.579.2 .1259 1942 Unknown [id number] 2.16.840.1.851308.3.579.2 .1259 1942 Unknown [id number] 2.16.840.1.854483.3.579.2 .1259 1942 Unknown [id number] 2.16.840.1.647804.3.579.2 .1259 1942 Unknown [id number] 2.16.840.1.690514.3.579.2 .1259 1942 Unknown [id number] 2.16.840.1.377193.3.579.2 .727 1942 Unknown [id number] 2.16.840.1.844317.3.579.2 .727 1942 Unknown [id number] 2.16.840.1.655847.3.579.2 .727 1942 Unknown [id number] 2.16.840.1.201834.3.579.2 .196 1942 Unknown [id number] 2.16.840.1.479268.3.579.2 .196 1942 Unknown [id number] 2.16.840.1.522831.3.579.2 .196 1942 Unknown [id number] 2.16.840.1.710353.3.579.2 .196 1942 Unknown [id number] 2.16.840.1.998084.3.579.2 .196 1942 Unknown [id number] 2.16.840.1.200485.3.579.2 .196 1942 Unknown [id number] 2.16.840.1.521382.3.579.2 .196 Unknown [id number] 2.16.840.1.711997.3.579.2 .531 Unknown [id number] 2.16.840.1.476975.3.579.2 .531 Unknown [id number] 2.16.840.1.557627.3.579.2 .531 Unknown [id number] 2.16.840.1.627284.3.579.2 .531 Unknown [id number] 2.16.840.1.712476.3.579.2 .531 Unknown [id number] 2.16.840.1.850926.3.579.2 .531 Social History Date Type Detail Facility Start: 02-20-2004 End: 04-04-2022 Tobacco smoking status NHIS Former smoker [facility] Comment on above: quit smoking in 1984 Start: 07-14-1979 End: 07-14-1999 History of tobacco use Current smoker [facility] Work Phone: Start: 02-20-2004 Alcohol intake Not Asked [facility] Start: 1940 Sex Assigned At Not on file [facility] Start: 07-19-2022 End: 02-07-2023 Sex Assigned At [facility] Start: 1940 Sex Assigned At Female F [facility] Start: 07-14-1979 End: 07-14-1999 History of tobacco use Cigarette Smoker [facility] Start: 04-04-2022 End: 02-07-2023 Cigarettes smoked current (pack per day) - Reported 1.5 [facility] Start: 04-04-2022 Tobacco use and exposure Smokeless tobacco non-user [facility] Start: 04-04-2022 End: 08-08-2023 Alcohol intake Ex-drinker (finding) [facility] Start: 03-25-2022 End: 04-18-2022 Exposure to SARS-CoV-2 (event) Not sure [facility] Adult Depression Screening Assessment 0 [facility] Comment on above: quit smoking in 1984 Start: 12-07-2022 Tobacco smoking stat us [facility] Never smoked tobacco [facility] Start: 08-21-2023 End: 08-09-2024 Alcohol intake Current drinker of alcohol (finding) [facility] Start: 12-07-2022 Alcohol Comment Alcohol: 1-2 d rinks occasionally. Caffeine: 3-4 cups/day coffee [facility] Start: 05-27-2024 End: 11-10-2024 Sex Female (finding) [facility] Medical Equipment Procedure Code Equipment Code [...] ALLOGRAFT FUSELO X LUMBAR FDA Start: 03-24-2017 Fill[place] One Level Deformity FDA Start: 03-24-2017 CANCELLOUS [...] ALLOGRAFT FUSELO X LUMBAR FDA Start: 03-24-2017 [place] One Level Deformity FDA Start: 03-24-2017 CANCELLOUS [...] ALLOGRAFT FUSELO X LUMBAR FDA Start: 03-24-2017 [place] One Level Deformity FDA Start: 03-24-2017 CANCELLOUS [...] ALLOGRAFT FUSELO X LUMBAR FDA Start: 03-24-2017 [place] One Level Deformity FDA Start: 03-24-2017 CANCELLOUS [...] ALLOGRAFT FUSELO X LUMBAR FDA Start: 03-24-2017 [place] One Level Deformity FDA Start: 03-24-2017 CANCELLOUS [...] ALLOGRAFT FUSELO X LUMBAR FDA Start: 03-24-2017 [place] One Level Deformity FDA Start: 03-24-2017 CANCELLOUS [...] ALLOGRAFT FUSELO X LUMBAR FDA Start: 03-24-2017 Fill[place] One Level Deformity FDA Start: 03-24-2017 CANCELLOUS [...] ALLOGRAFT FUSELO X LUMBAR FDA Start: 03-24-2017 Fill[place] One Level Deformity FDA Start: 03-24-2017 CANCELLOUS [...] ALLOGRAFT FUSELO X LUMBAR FDA Start: 03-24-2017 Fill[place] One Level Deformity FDA Start: 03-24-2017 CANCELLOUS [...] ALLOGRAFT FUSELO X LUMBAR FDA Start: 03-24-2017 Fill[place] One Level Deformity FDA Start: 03-24-2017 CANCELLOUS [...] ALLOGRAFT FUSELO X LUMBAR FDA Start: 03-24-2017 [place] One Level Deformity FDA Start: 03-24-2017 CANCELLOUS [...] ALLOGRAFT FUSELO X LUMBAR FDA Start: 03-24-2017 [place] One Level Deformity FDA Start: 03-24-2017 CANCELLOUS [...] ALLOGRAFT FUSELO X LUMBAR FDA Start: 03-24-2017 [place] One Level Deformity FDA Start: 03-24-2017 CANCELLOUS [...] ALLOGRAFT FUSELO X LUMBAR FDA Start: 03-24-2017 [place] One Level Deformity FDA Start: 03-24-2017 CANCELLOUS [...] ALLOGRAFT FUSELO X LUMBAR FDA Start: 03-24-2017 [place] One Level Deformity FDA Start: 03-24-2017 CANCELLOUS [...] ALLOGRAFT FUSELO X LUMBAR FDA Start: 03-24-2017 [place] One Level Deformity FDA Start: 03-24-2017 CANCELLOUS [...] ALLOGRAFT FUSELO X LUMBAR FDA Start: 03-24-2017 [place] One Level Deformity FDA Start: 03-24-2017 CANCELLOUS [...] ALLOGRAFT FUSELO X LUMBAR FDA Start: 03-24-2017 [place] One Level Deformity FDA Start: 03-24-2017 CANCELLOUS [...] ALLOGRAFT FUSELO X LUMBAR FDA Start: 03-24-2017 [place] One Level Deformity FDA Start: 03-24-2017 CANCELLOUS [...] ALLOGRAFT FUSELO X LUMBAR FDA Start: 03-24-2017 Fill[place] One Level Deformity FDA Start: 03-24-2017 CANCELLOUS [...] ALLOGRAFT FUSELO X LUMBAR FDA Start: 03-24-2017 Fill[place] One Level Deformity FDA Start: 03-24-2017 CANCELLOUS [...] ALLOGRAFT FUSELO X LUMBAR FDA Start: 03-24-2017 Fill[place] One Level Deformity FDA Start: 03-24-2017 CANCELLOUS [...] ALLOGRAFT FUSELO X LUMBAR FDA Start: 03-24-2017 Fillmore One Level Deformity FDA Start: 03-24-2017 CANCELLOUS [...] ALLOGRAFT FUSELO X LUMBAR FDA Start: 03-24-2017 Fillmore One Level Deformity FDA Start: 03-24-2017 CANCELLOUS 15CC CRUSHED FDA Start: 03-24-2017 CROSSLINK CAPLOX II MED/LG FDA Start: 03-24-2017 NUVASIVE LOCK SCREWS FDA Star t: 03-24-2017 NUVASIVE LOCK SCREWS FDA Star t: 03-24-2017 NUVASIVE LOCK SCREWS FDA Star t: 03-24-2017 NUVASIVE LOCK SCREWS FDA Star t: 03-24-2017 Goals Date Patient Goal Desired Activity /State Functional Status Date Assessment Result Facility 08-16-2024 Functional Status N/A [facility] 02-24-2024 Functional Status N/A [facility] 02-11-2023 Functional Status N/A [facility] 01-26-2022 Functional status Patient is Pro gressing Toward [facility] Work Phone: Mental Status Date Assessment Result Facility 01-26-2022 Cognitive function Cognitive Sta tus Patient at [facility] Work Phone: Clinical Notes 04-04-2021 to 11-17-2024 Telephone Encounter - Susan Caballero - 11/17/2024 2:35 PM EDTTelephone Encounter - Susan Caballero - 11/17/2024 2:35 PM EDT Note Date & Type Note Facility 11-17-2024 Telephone encounter Note Records faxed to Dr. Silva [phone]. I called Roxie to let her know they were faxed. [facility] 11-17-2024 Miscellaneous Notes Records faxed to Dr. Silva [phone]. I called Roxie to let her know they were faxed. Dr Zena DREW Received a call from patient caregiver Roxie Leola. She stated that patient would like to cancel her upcoming appointment with Dr Paredes on 11/24 due to patient is going to be following with Dr Silva @ [facility] as this is closer to home for patient. Roxie requested to talk to medical records regarding having records sent to Dr Silva transferred call To Heather Todd. Lori Callahan documented in this encounter [facility] 11-17-[address] Zena DREW Received a call from patient caregiver Roxie Bhgaat. She stated that patient would like to cancel her upcoming appointment with Dr Paredes on 11/24 due to patient is going to be following with Dr Silva @ [facility] as this is closer to home for patient. Roxie requested to talk to medical records regarding having records sent to Dr Silva transferred call To Heather Todd. Lori Callahan [facility] 11-10-2024 Hospital Discharg e instructions Ambulatory OrdersReferral to Hematology Time Frame: 11/10/24, Location: None SelectedReferral to Nephrology Time Frame: 11/10/24, Location: None [facility] Work Phone: 08-16-2024 Hospital Discharg e instructions Patient Education 08/16/2024 10:04:56 Antibiotic Medicine, Adult Antibiotic Medicine, Adult Antibiotic medicines are used to treat infections caused by bacteria. These medicines do not work for illnesses caused by viruses. Antibiotics work by killing the bacteria that are making you sick, but they can also have serious side effects. Antibiotics must be used safely and only when needed. When do I need to take antibiotics? You may need antibiotics for: A urinary tract infection (UTI). Strep throat. Bacterial sinus infection. Meningitis. Serious lung infections. Your health care provider may start you on antibiotics while you are waiting for test results. Tests may include a culture of the throat, urine, blood, or mucus. Your health care provider may change or stop your antibiotic depending on your test results. When are antibiotics not needed? You do not need antibiotics for most common illnesses. These illnesses may be caused by a virus, not by bacteria. You do not need antibiotics for: The common cold. The flu (influenza). Sore throat. Discolored mucus. Bronchitis. Antibiotics are not always needed for all infections caused by bacteria. Many of these infections clear up on their own. Do not take antibiotics when they are not needed. How long should I take my antibiotic? You must take the entire amount prescribed to you. Take your antibiotics as told by your health care provider. Do not stop taking your antibiotics even if you start to feel better. If you stop taking them too soon: You may feel sick again. Your infection may get harder to treat. Each course of antibiotics needs a different length of time to work. The length of time may vary from a few days to a few weeks. What if I miss a dose? Try not to miss any doses of medicine. If you miss a dose, call your health care provider or pharmacist for help. Sometimes, it is okay to take the missed dose as soon as possible. Do not take double or extra doses. What are the risks of taking antibiotics? Antibiotics can cause: Allergic reactions. Nausea. Yeast infections. Liver problems. Antibiotics can also cause an infection called Clostridioides difficile (C. difficile or C. diff), which causes severe diarrhea. This infection happens when the antibiotics kill the healthy bacteria in your intestines. This allows C. diff to grow. C. diff needs to be treated right away. Let your health care provider know if: You have diarrhea while taking an antibiotic. You have diarrhea after you stop taking an antibiotic. C. diff infection can start weeks after stopping the antibiotic. Taking an antibiotic also puts you at risk for getting sick in the future with bacteria that do not respond to medicine (antibiotic-resistant infection). Antibiotics can cause bacteria to change so that if the antibiotic is taken again, the medicine cannot kill the bacteria. These infections can be more serious because they are hard, or sometimes impossible, to treat. Do antibiotics affect control? control pills may not work while you are taking antibiotics. If you are taking control pills: Keep taking them as usual. Use a second form of control, such as a condom, to avoid unwanted . Do this for as long as told by your health care provider. What else should I know about taking antibiotics? Take antibiotics exactly as told. Take the correct amount of medicine at the same time each day. Ask your health care provider: ?How long to wait between doses. ?If you should take your antibiotic with food or water. ?If you should avoid certain foods, drinks, or medicines while taking your antibiotics. ?If you need to watch for any side effects. Use only the antibiotics prescribed to you by your health care provider. Do not use antibiotics prescribed for someone else. Drink a large glass of water when taking your antibiotics unless told otherwise. Drink enough fluid to keep your urine pale yellow. Ask your pharmacist for a dosage syringe, cup, or spoon that correctly measures your antibiotics. Ask your pharmacist or health care provider how to safely get rid of leftover medicine. Follow these instructions at home: Take your antibiotics as told by your health care provider. Do not stop taking your antibiotics even if you start to feel better. Return to your normal activities as told by your health care provider. Ask your health care provider what activities are safe for you. Contact a health care provider if: Your symptoms get worse. You have new joint pain or muscle aches that begin after starting your antibiotic. You have side effects from your antibiotic, such as: ?Stomach pain. ?Diarrhea. ?Nausea. ?White patches in your mouth or throat. Get help right away if: You have signs of a severe allergic reaction to antibiotics. If you have any of these signs, stop taking the antibiotic right away. Signs may include: ?Raised, itchy, red bumps on your skin (hives). ?Skin rash. ?Trouble breathing. ?High-pitched whistling sounds when you breathe, most often when you breathe out (wheezing). ?Swelling anywhere on your body. ?Feeling dizzy. ?Vomiting. You have signs of liver problems, such as: ?Dark or blood-colored urine. ?Yellow color to your skin. ?Bruising or bleeding easily. You have severe diarrhea, bloody diarrhea, or stomach cramps. You have a severe headache. These symptoms may be an emergency. Get help right away. Call 911. Do not wait to see if the symptoms will go away. Do not drive yourself to the hospital. This information is not intended to replace advice given to you by your health care provider. Make sure you discuss any questions you have with your health care provider. Document Revised: 01/28/2023 Document Reviewed: 01/28/2023 [email or web address] Patient Education 2023 [employer] Follow Up Care 08/11/2024 14:41:18 With:JAX BECKMAN, SUSAN Miller, URL Address: [address] [place] [address] When:Within 6 Month(s) [facility] 08-16-2024 Note Patient Education Caregiving Antibiotic Medicine, Adult Antibiotic medicines are used to treat infections caused by bacteria. These medicines do not work for illnesses caused by viruses. Antibiotics work by killing the bacteria that are making you sick, but they can also have serious side effects. Antibiotics must be used safely and only when needed. When do I need to take antibiotics? You may need antibiotics for: ??? A urinary tract infection (UTI). ??? Strep throat. ??? Bacterial sinus infection. ??? Meningitis. ??? Serious lung infections. Your health care provider may start you on antibiotics while you are waiting for test results. Tests may include a culture of the throat, urine, blood, or mucus. Your health care provider may change or stop your antibiotic depending on your test results. When are antibiotics not needed? You do not need antibiotics for most common illnesses. These illnesses may be caused by a virus, not by bacteria. You do not need antibiotics for: ??? The common cold. ??? The flu (influenza). ??? Sore throat. ??? Discolored mucus. ??? Bronchitis. Antibiotics are not always needed for all infections caused by bacteria. Many of these infections clear up on their own. Do not take antibiotics when they are not needed. How long should I take my antibiotic? You must take the entire amount prescribed to you. Take your antibiotics as told by your health care provider. Do not stop taking your antibiotics even if you start to feel better. If you stop taking them too soon: ??? You may feel sick again. ??? Your infection may get harder to treat. Each course of antibiotics needs a different length of time to work. The length of time may vary from a few days to a few weeks. What if I miss a dose? Try not to miss any doses of medicine. If you miss a dose, call your health care provider or pharmacist for help. Sometimes, it is okay to take the missed dose as soon as possible. Do not take double or extra doses. What are the risks of taking antibiotics? Antibiotics can cause: ??? Allergic reactions. ??? Nausea. ??? Yeast infections. ??? Liver problems. Antibiotics can also cause an infection called Clostridioides difficile (C. difficile or C. diff), which causes severe diarrhea. This infection happens when the antibiotics kill the healthy bacteria in your intestines. This allows C. diff to grow. C. diff needs to be treated right away. Let your health care provider know if: ??? You have diarrhea while taking an antibiotic. ??? You have diarrhea after you stop taking an antibiotic. C. diff infection can start weeks after stopping the antibiotic. Taking an antibiotic also puts you at risk for getting sick in the future with bacteria that do not respond to medicine (antibiotic-resistant infection). Antibiotics can cause bacteria to change so that if the antibiotic is taken again, the medicine cannot kill the bacteria. These infections can be more serious because they are hard, or sometimes impossible, to treat. Do antibiotics affect control? control pills may not work while you are taking antibiotics. If you are taking control pills: ??? Keep taking them as usual. ??? Use a second form of control, such as a condom, to avoid unwanted . Do this for as long as told by your health care provider. What else should I know about taking antibiotics? Take antibiotics exactly as told. ??? Take the correct amount of medicine at the same time each day. ??? Ask your health care provider: ? How long to wait between doses. ? If you should take your antibiotic with food or water. ? If you should avoid certain foods, drinks, or medicines while taking your antibiotics. ? If you need to watch for any side effects. ??? Use only the antibiotics prescribed to you by your health care provider. Do not use antibiotics prescribed for someone else. ??? Drink a large glass of water when taking your antibiotics unless told otherwise. Drink enough fluid to keep your urine pale yellow. ??? Ask your pharmacist for a dosage syringe, cup, or spoon that correctly measures your antibiotics. ??? Ask your pharmacist or health care provider how to safely get rid of leftover medicine. Follow these instructions at home: ??? Take your antibiotics as told by your health care provider. Do not stop taking your antibiotics even if you start to feel better. ??? Return to your normal activities as told by your health care provider. Ask your health care provider what activities are safe for you. Contact a health care provider if: ??? Your symptoms get worse. ??? You have new joint pain or muscle aches that begin after starting your antibiotic. ??? You have side effects from your antibiotic, such as: ? Stomach pain. ? Diarrhea. ? Nausea. ? White patches in your mouth or throat. Get help right away if: ??? You have sig (more content not included)... [facility] 08-11-2024 Evaluation note Authored August 11, 2024 1 :46pm The above note written by __ _Melanie Conde____ acting as human recorder, note dictated by Dr. Slater .I performed the above HPI, ROS, and Examination. I formulated and dictated the treatment plan and was present for entire encounter. Ayanna Vicente D.O. [facility] Work Phone: [phone] History of Present illness Narrative* Esvin Dubon NP - 08/09/2024 2:20 PM EST Images from the original note were not included. Chief Complaint Patient presents with Cognitive Impairment Subjective Kathy Chester Washburn, 84 y.o., female Patient is here for follow up to cognitive impairment. She admits neuropsych evaluation with Dr Hammonds and memory labs since she was last seen. She is accompanied today by a friend, Roxie. Patientlives at home alone but she does have a lot of help with a family that lives close. Patient states she is able to take care of all of her ADL's. She admits some difficulty with finances. She does feel forgetful and reports occasional popcorn brain which she describes as difficulty with concentration. Her friend that accompanies her states that they play Scrabble routinely and the patient is difficult to beat. Patient uses Ambien to sleep and admits she sleeps well about 7-8 hours a night. Patient denies any agitation or anxiety. States anxiety/depression are well controlled. She denies further concern today. Review of Systems Constitutional: Negative for appetite change, fatigue and fever. Respiratory: Negative for cough, shortness of breath and wheezing. Cardiovascular: Negative for chest pain, palpitations and leg swelling. Gastrointestinal: Negative for abdominal pain, constipation, diarrhea and nausea. Musculoskeletal: Negative for arthralgias, gait problem and myalgias. Neurological: Negative for dizziness, tremors, numbness and headaches. Patient endorses memory impairment and anxiety Past Medical History: Diagnosis Date Hernia, inguinal History of insulin dependent diabetes mellitus IDDM History of left knee replacement History of right knee joint replacement 2010 Leukemia (CMS/HCC) Neuropathy IDDM Past Surgical History: Procedure Laterality Date BACK SURGERY 2016 COLONOSCOPY 2014 COLONOSCOPY 2002 JOINT REPLACEMENT Left 08/2011 knee replacement; Dr. Haque JOINT REPLACEMENT Right 2009 knee replacement OTHER SURGICAL HISTORY 1999 fissure repair HI REPAIR SLIDING INGUINAL HERNIA Hernia, inguinal TOTAL ABDOMINAL HYSTERECTOMY W/ BILATERAL SALPINGOOPHORECTOMY 1987 Family History Problem Relation Name Age of Onset Cancer Mother Heart disease Father Alzheimer's disease Father Migrated family history Accidental Sister MVA No Known Problems Brother Breast cancer Neg Hx Colon cancer Neg Hx Ovarian cancer Neg Hx Pancreatic cancer Neg Hx Social History Tobacco Use Smoking status: Never Smokeless tobacco: Not on file Substance Use Topics Alcohol use: Yes Comment: Alcohol: 1-2 drinks occasionally. Caffeine: 3-4 cups/day coffee Allergies: Cefpodoxime and Cephalosporins Vitals: 08/09/24 1416 BP: 125/87 Pulse: 64 Body mass index is 32.93 kg/m . weight: 223 lb Neurologic exam: Mental status: Well nourished, well developed and in no acute distress. Grossly oriented to person, place and time. Previous [place] cognitive assessment: 2930 Language is fluent without aphasia. Attention and concentration are normal. Fund of knowledge is appropriate for level of education. Cranial nerves: CN II: Visual acuity is normal. Visual michael full to confrontation. CN III, IV, : pupils equal round and reactive to light. Extraocular movements intact. No ptosis present. CN V: Facial sensation is normal. CN VII: Full and symmetric facial movement. CN VIII: Hearing is intact. CN IX and X: Palate elevates symmetrically. CN XI: Shoulder shrug is normal bilaterally. CN XII: Tongue is midline without atrophy or fasciculation. Motor: RUE Strength deltoid, , biceps , triceps , wrist extensors , wrist flexor , group controller strength 5/5. LUE Strength deltoid , biceps , triceps , wrist extensors , wrist flexor , group controller strength 5/5. RLE Strength illopsoas, quadriceps, tibialis anterior, and gastrocnemius strength 5/5. LLE Strength illopsoas, quadriceps, tibialis anterior, and gastrocnemius strength 5/5. Normal tone x4 extremities. Bulk is normal. Sensory: Sensation is intact to light touch throughout distal extremities. Reflexes: RUE biceps reflex 1+ brachioradialis reflex 2+ . LUE biceps reflex + brachioradialis reflex 2+ . RLE knee reflex 0 . LLE knee reflex 0. Hdz's sign negative. Coordination: Udojio-vj-usat testing is normal Rapid alternating movements are normal Gait: Normal Review and summary of old records: Neuropsych evaluation on 08/04/2024: Evaluation demonstrates well-preserved cognition memory. In fact, memory measured in the high average to superior levels. She demonstrates excellent cognitive reserve for her age. No evidence of a neurodegenerative condition or other organic etiology. Findings are completely normal for her age. Minimal psychiatric contribution. Labs on 06/22/2024: TSH 2.632 (wnl), B12 721 [place] cognitive assessment at [facility] on 06/17/2024: 29/30 MRI of the brain at [facility] on 07/04/18: Mild age-related changes and atrophy with small vessel ischemic disease noted. Assessment/Plan Diagnoses and all orders for this visit: Cognitive impairment It is my impression that the patient has cognitive feelings of memory impairment. There have been some instances where she has forgotten appointments and lost track of what she is doing. MOCA score on 06/17/24 is actually quite strong at 29/30. Certainly given her age consideration is given to dementia. B12 and TSH were unremarkable. Neuropsych evaluation on 08/04/24 argues against a neurodegenerative process and the patient actually performed high average to superior levels. In this setting, consideration is given to anxiety manifesting as a pseudodementia. PLAN: - Lab results and neuropsych evaluation were reviewed with the patient today - No clear indication for further treatment/evaluation at this time. - Recommended close follow up for ongoing monitoring and management of anxiety. Per patient well controlled on her current medication regimen. - Recommended adequate hydration, sleep hygiene, brain stimulating activity and compensation techniques Follow up in 1 year or sooner if symptoms worsen, fail to improve, or should a new neurological concern arise. Pt has been fully educated on their diagnosis, lab results, treatment options, follow up plan, return instructions, and discussion of mental health issues documented in this encounterRanken Jordan Pediatric Specialty [id number] History of Present illness Narrative* Enrique Hammonds, PhD - 06/28/2024 11:00 AM EST Images from the original note were not included. Enrique Hammonds, PhD NEUROBEHAVIORAL STATUS EXAMINATION Kathy Washburn is a 83 y.o. female referred for neuropsychological evaluation to assist with facilitating and informing medical differential diagnosis and clinical decision-making. The following information was obtained during an interview with the patient and close friend, as well as review of available records. PRESENTING PROBLEM AND HISTORY Decline in memory of the past one and 1/2 to 2 years described as mild simple daily episodes of forgetfulness such as losing track of what she is doing, forgetting appointments, forgetting what she has discussed, word-finding difficulty (especially for proper nouns), as well as worsening baseline [place] with attention/concentration and increased difficulty circling back to tasks left incomplete. Feels she has always struggled with ADHD. Overall independent in ADLs and household responsibilities. Patient has become overwhelmed with paperwork and schedules. Friend has been assisting with this over the past several months. Friend is also becoming more involved with the finances. Independently managing medication. Continues to drive, although largely limits this to local familiar destinations due to decline in attention and stamina. Previously very physically active, minimal now due to physical limitations. Remains social. Sleeping well with current medication. No snoring. Experiencing chronic pain. Pain management has conducted injections that have not been helpful yet. PRN pain medication has helped to some extent. Prior neurological history includes striking head on the concrete after falling approximately 5 yearsago. Reported very brief LOC. Hospitalized 3 days largely due to physical injuries. MoCA 29/30. Family neurological history includes Alzheimer's dementia (father) and vascular dementia (mother). Psychiatric history notable for fluctuating depression. No history of alcohol/substance abuse. Reformed smoker. [place]. Completed a master's degree. 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 and currently lives alone. Because of one child living out of state. MEDICAL HISTORY/MEDICATION: Past Medical History: Diagnosis Date Hernia, inguinal History of insulin dependent diabetes mellitus IDDM History of left knee replacement History of right knee joint replacement 2010 Leukemia (CMS/HCC) Neuropathy IDDM MEDICATIONS: Current Outpatient Medications Medication Instructions atorvastatin (LIPITOR) 20 mg, Daily cholecalciferol (VITAMIN D-3) 5,000 Units ciprofloxacin (CIPRO) 500 mg, 2 times daily citalopram (CELEXA) 40 mg, Daily ezetimibe (ZETIA) 10 mg, Daily furosemide (LASIX) 20 mg, 2 times daily hydroxychloroquine (Plaquenil) 200 MG tablet take 1 tablet (200MG) by ORAL route 2 times every day Oral insulin glargine (Lantus) 100 UNIT/ML injection Subcutaneous ketoconazole (NIZOral) 2 % cream 1 application to affected area on the feet topically two times daily for 30 day(s) Lantus SoloStar 100 UNIT/ML pen INJECT 46 UNITS SUBCUTANEOUSLY AT BEDTIME levothyroxine (Synthroid, Levoxyl) 100 MCG tablet TAKE 1 TABLET BY MOUTH IN THE MORNING ON AN EMPTYSTOMACH. Do not eat or drink for 30-45 MINUTES after taking lisinopril 10 mg, Daily metFORMIN (GLUCOPHAGE) 1,000 mg, 2 times daily with meals mirabegron ER (Myrbetriq) 25 MG 24 hr tablet Every 24 hours mirabegron ER (Myrbetriq) 25 MG 24 hr tablet Every 24 hours Multiple Vitamin (Tab-A-Sivan) tablet 1 tablet, Daily oxybutynin (Ditropan) 5 MG tablet See Instructions, can take 1 tab po up to TID PRN incontinence, #90 tab(s), Refills(s) 3, Pharmacy: [id number], 178, cm, 02/11/23 11:43:00 EDT, Height/Length Dosing, 106.9, kg, 02/11/23 11:43:00 EDT, Weight Dosing oxyCODONE-acetaminophen (Percocet) 5-325 MG tablet TAKE 1 TABLET BY MOUTH ONCE DAILY - TWICE DAILY NEEDED OYSCO 500 + D 500-5 MG-MCG tablet 1 tablet, Every morning pregabalin (LYRICA) 225 mg, 2 times daily propranolol LA (INDERAL LA) 60 mg, Daily triamterene-hydrochlorothiazide (Maxzide-25) 37.5-25 MG tablet TAKE 1/2 (ONE- HALF) OF A TABLET BY MOUTH DAILY venlafaxine XR (Effexor XR) 75 MG 24 hr capsule TAKE 1 CAPSULE BY MOUTH EVERY DAY WITH FOOD zolpidem (AMBIEN) 5 mg, Nightly INITIAL IMPRESSION AND PLAN: Memory loss, concentration deficit, word finding difficulty, chronic pain, and family history of dementia: The patient will be scheduled for neuropsychological assessment, which will include tests for memory, reasoning, language, problem-solving, attention, and mood. Thank you for allowing me to participate in the care of this individual. Please contact me with [employer] at [phone]. documented in this encounterRanken Jordan Pediatric Specialty [id number] History of Present illness Narrative* Moe Betts, DO - 06/23/2024 2:30 PM EST Images from the original note were not included. Kathy Washburn 1940 Kathy Washburn is a 83 y.o. female presents with chief complaint of Schedule colonoscopy, hx of colon polyps HPI: HPI Kathy presents to schedule a colonoscopy. She states he BM's are either diarrhea or hard stools that take 30 min to pass. She denies any abdominal pain or rectal bleeding. She denies any weight loss. She doesn't feel her diet has any effect on the stool SUBJECTIVE: MEDICATIONS: ALLERGIES Current Outpatient Medications Medication Instructions atorvastatin (LIPITOR) 20 mg, Daily cholecalciferol (VITAMIN D-3) 5,000 Units citalopram (CELEXA) 40 mg, Daily ezetimibe (ZETIA) 10 mg, Daily furosemide (LASIX) 20 mg, 2 times daily hydroxychloroquine (Plaquenil) 200 MG tablet take 1 tablet (200MG) by ORAL route 2 times every day Oral insulin glargine (Lantus) 100 UNIT/ML injection Subcutaneous ketoconazole (NIZOral) 2 % cream 1 application to affected area on the feet topically two times daily for 30 day(s) Lantus SoloStar 100 UNIT/ML pen INJECT 46 UNITS SUBCUTANEOUSLY AT BEDTIME levothyroxine (Synthroid) 50 MCG tablet take 1 tablet by ORAL route every day Oral lisinopril 10 mg, Daily metFORMIN (GLUCOPHAGE) 1,000 mg, 2 times daily with meals mirabegron ER (Myrbetriq) 25 MG 24 hr tablet Every 24 hours mirabegron ER (Myrbetriq) 25 MG 24 hr tablet Every 24 hours Multiple Vitamin (Tab-A-Sivan) tablet 1 tablet, Daily oxyCODONE-acetaminophen (Percocet) 5-325 MG tablet TAKE 1 TABLET BY MOUTH ONCE DAILY - TWICE DAILY NEEDED OYSCO 500 + D 500-5 MG-MCG tablet 1 tablet, Every morning pregabalin (LYRICA) 225 mg, 2 times daily propranolol LA (INDERAL LA) 60 mg, Daily triamterene-hydrochlorothiazide (Maxzide) 75-50 MG tablet Every 24 hours triamterene-hydrochlorothiazide (Maxzide) 75-50 MG tablet Every 24 hours venlafaxine XR (Effexor XR) 75 MG 24 hr capsule TAKE 1 CAPSULE BY MOUTH EVERY DAY WITH FOOD zolpidem (AMBIEN) 5 mg, Nightly Allergies Allergen Reactions Cefpodoxime Other Other Reaction(s): Eye swelling Cephalosporins Unknown PAST MEDICAL HISTORY: SOCIAL HISTORY SURGICAL HISTORY: Past Medical History: Diagnosis Date Hernia, inguinal History of insulin dependent diabetes mellitus IDDM History of left knee replacement History of right knee joint replacement 2010 Leukemia (CMS/HCC) Neuropathy IDDM Social History Tobacco Use Smoking status: Never Substance Use Topics Alcohol use: Yes Comment: Alcohol: 1-2 drinks occasionally. Caffeine: 3-4 cups/day coffee Past Surgical History: Procedure Laterality Date BACK SURGERY 2016 COLONOSCOPY 2013 COLONOSCOPY 2002 JOINT REPLACEMENT Left 08/2011 knee replacement; Dr. Haque JOINT REPLACEMENT Right 2010 knee replacement OTHER SURGICAL HISTORY 1999 fissure repair HI REPAIR SLIDING INGUINAL HERNIA Hernia, inguinal TOTAL ABDOMINAL HYSTERECTOMY W/ BILATERAL SALPINGOOPHORECTOMY 1987 FAMILY HISTORY Family History Problem Relation Name Age of Onset Cancer Mother Heart disease Father Alzheimer's disease Father Migrated family history Accidental Sister MVA No Known Problems Brother REVIEW OF SYMPTOMS: Review of Systems Constitutional: Negative for diaphoresis and unexpected weight change. HENT: Negative for hearing loss, tinnitus and voice change. Respiratory: Negative for shortness of breath. Cardiovascular: Negative for chest pain and palpitations. Gastrointestinal: Positive for constipation and diarrhea. Musculoskeletal: Positive for arthralgias. Neurological: Negative for dizziness, seizures and headaches. All other systems reviewed and are negative. Hematological: Negative for adenopathy. Does not bruise/bleed easily. OBJECTIVE: Visit Vitals Smoking Status Never Physical Exam HENT: Head: Normocephalic. Cardiovascular: Rate and Rhythm: Normal rate and regular rhythm. Pulmonary: Effort: Pulmonary effort is normal. Breath sounds: Normal breath sounds. Abdominal: General: Abdomen is flat. Bowel sounds are normal. Palpations: Abdomen is soft. Skin: General: Skin is warm and dry. Neurological: Mental Status: She is alert. ASSESSMENT AND PLAN: Assessment/Plan Problem List Items Addressed This Visit Diarrhea - Primary Constipation I told Marci that it is recommended to stop colonoscopy at age 82 unless there is a medical issue that needs investigation. I explained that based on her medication list the fluctuation in her bowelsmay be due to the meds. explained the colonoscopy procedure in detail to the patient and discussed the risks and benefits including but not exclusive of bleeding, and perforation. I asked the patientnot to drive, operate any machinery or make any important decisions on the day of the procedure. The patient was wondering if she can do a Colguard test. She is going to discuss it further with Dr. Vicente and get back to me if she decides to have the scope. documented in this encounterRanken Jordan Pediatric Specialty [id number] History of Present illness Narrative* Babita Guillaume DO - 06/17/2024 2:00 PM EST Images from the original note were not included. Chief Complaint: memory impairment Subjective Kathy Washburn, 83 y.o., female Patient presents today for a neurologic consult at the request of Dr. Vicente for memory changes. She is accompanied by her friend Roxie. Patient states she has been having some issues with her memoryfor about the last year or so. Her mother and father both had dementia. The patient states she forgets events that she has been to with friends. Her friend states today she told her they had an appointment at 2, she walked out of the room and when she came back in she asked her why she was there. Patient lives at home alone but she does have a lot of help with a family that lives close. Patient states she is able to take care of all of her ADL's. She admits she is getting behind with her finances. Patient uses Ambien to sleep and admits she sleeps well about 7-8 hours a night. She admits to vivid dreams and hallucinations. She describes these as sees shades of lou or brown and she may see a cat that she knows is not there. Patient denies any agitation or anxiety. Her friend admits to herhaving some overwhelming feelings, especially about her paperwork starting to file up(these are all finances related). Patient admits to feeling out of control at times and having difficulty concentrating. `MOCA Review of Systems Constitutional: Negative for appetite change, fatigue and fever. Respiratory: Negative for cough, shortness of breath and wheezing. Cardiovascular: Negative for chest pain, palpitations and leg swelling. Gastrointestinal: Negative for abdominal pain, constipation, diarrhea and nausea. Musculoskeletal: Negative for arthralgias, gait problem and myalgias. Neurological: Negative for dizziness, tremors, numbness and headaches. Patient endorses memory impairment and anxiety Past Medical History: Diagnosis Date Hernia, inguinal History of insulin dependent diabetes mellitus IDDM History of left knee replacement History of right knee joint replacement 2010 Leukemia (CMS/HCC) Neuropathy IDDM Past Surgical History: Procedure Laterality Date BACK SURGERY 2016 COLONOSCOPY 2014 COLONOSCOPY 2002 JOINT REPLACEMENT Left 08/2011 knee replacement; Dr. Haque JOINT REPLACEMENT Right 2010 knee replacement OTHER SURGICAL HISTORY 2000 fissure repair HI REPAIR SLIDING INGUINAL HERNIA Hernia, inguinal TOTAL ABDOMINAL HYSTERECTOMY W/ BILATERAL SALPINGOOPHORECTOMY 1987 Family History Problem Relation Name Age of Onset Cancer Mother Heart disease Father Alzheimer's disease Father Migrated family history Accidental Sister MVA No Known Problems Brother Social History Tobacco Use Smoking status: Never Smokeless tobacco: Not on file Substance Use Topics Alcohol use: Yes Comment: Alcohol: 1-2 drinks occasionally. Caffeine: 3-4 cups/day coffee Allergies: Cefpodoxime and Cephalosporins Vitals: 06/17/24 1358 BP: 138/74 Pulse: 84 SpO2: 90% Body mass index is 33.82 kg/m . weight: 229 lb Neurologic exam: Mental status: Awake, alert to person, place and time. [place] cognitive assessment: Language is fluent without aphasia. Attention and concentration are normal. Fund of knowledge is appropriate for level of education. Cranial nerves: CN II: Visual acuity is normal. Visual michael full to confrontation. CN III, IV, : pupils equal round and reactive to light. Extraocular movements intact. No ptosis present. CN V: Facial sensation is normal. CN VII: Full and symmetric facial movement. CN VIII: Hearing is normal to finger rub bilaterally: CN IX and X: Palate elevates symmetrically. CN XI: Shoulder shrug is normal bilaterally. CN XII: Tongue is midline without atrophy or fasciculation. Motor: RUE Strength deltoid, , biceps , triceps , wrist extensors , wrist flexor , group controller strength 5/5. LUE Strength deltoid , biceps , triceps , wrist extensors , wrist flexor , group controller strength 5/5. RLE Strength illopsoas, quadriceps, tibialis anterior, and gastrocnemius strength 5/5. LLE Strength illopsoas, quadriceps, tibialis anterior, and gastrocnemius strength 5/5. Normal tone x4 extremities. Bulk is normal. Sensory: Sensation is intact to light touch throughout Four extremities. Reflexes: RUE biceps reflex 1+ brachioradialis reflex 2+ . LUE biceps reflex + brachioradialis reflex 2+ . RLE knee reflex 0 . LLE knee reflex 0. Hdz's sign negative. Coordination: [id number]-pg-[id number] testing and rapid alternating movements are normal Gait: Normal Review and summary of old records: [place] cognitive assessment at [facility] on 06/17/2024: Assessment/Plan Diagnoses and all orders for this visit: Cognitive impairment It is my impression that the patient has cognitive feelings of memory impairment. There have been some instances where she has forgotten appointments and lost track of what she is doing. Her Montrealcognitive assessment is actually quite strong at 29/30. She does also mentioned feeling out of control at times . Certainly given her age consideration is given to dementia. However, her memory testing would not support this. 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 Plan: Check vitamin B12 and thyroid stimulating hormone Neuropsych testing The patient presented with her neighbor who is a confident and friend for her. They help with her finances and help with her day-to-day ADLs when she needs it as well. They provided additional history. The patient, her neighbor who accompanied her and iron the same page about the diagnosis, prognosis, treatment and plan. Discussion in layman's terms. All questions answered Pt has been fully educated on their diagnosis, lab results, treatment options, follow up plan, return instructions, and discussion of mental health issues documented in this encounterRanken Jordan Pediatric Specialty [id number] NoteHNO ID: [id number] Author: YOUNG HERRERA LPN Service: ? Author Type: LICENSED NURSE Type: Progress Notes Filed: 06/08/2024 13:05 Note Text: Eye exam for Plaquenil toxicity received from [facility] . Exam date was 06/07/2024. Exam shows no signs of Plaquenil toxicity. Forms sent for scanning.[facility]11-26-2024 History of Present illness Narrative* Young Herrera LPN - 06/08/2024 1:05 PM EST Eye exam for Plaquenil toxicity received from [facility] . Exam date was 06/07/2024. Exam shows no signs of Plaquenil toxicity. Forms sent for scanning. documented in this encounterMer[facility]11-[facility] Instructions* Patient Instructions* Chad Freitas MD - 05/26/2024 2:09 PM EST Labs today F/u in 6 months documented in this encounterMercy Health [facility] Hospital11-13-2024 History of Present illness Narrative* Chad Freitas MD - 05/26/2024 2:00 PM EST Images from the original note were not included. PATIENT NAME: Kathy Washburn [facility] NO.: [id number] ATTENDING PHYSICIAN: Chad Freitas MD DATE OF [...] sweats - Did mammogram last week at [facility]. - Scheduled to see Registered Nurse Renal PAST MEDICAL HISTORY Diagnosis Date Depression Diabetes [...] Range Status 08/08/2023 2.0 % Final Abs [place] Date Value Ref Range Status 08/08/2023 0.39 [...] do not hesitate to contact me at [phone]. Chad Freitas MD Hematology/Medical Oncology [facility] I spent a total of 20 minutes on the date of the service which included preparing to see the patient, [id number] patient care, completing clinical documentation, obtaining and/or reviewing separately obtained history, counseling and educating the patient/family/caregiver, and ordering medications, tests, or procedures. CC: Ayanna Vicente DO documented in this encounterMercy Health Allen [facility] NoteHNO ID: [id number] Author: CHAD FREITAS MD Service: ? Author Type: Physician Type: Progress Notes Filed: 05/26/2024 14:41 Note Text: PATIENT NAME: Kathy Washburn CLINIC NO.: [id number] ATTENDING PHYSICIAN: Chad Freitas MD DATE OF [...] sweats - Did mammogram last week at [facility]. - Scheduled to see Registered Nurse Renal PAST MEDICAL HISTORY Diagnosis Date Depression Diabetes [...] Date Value Ref Range (more content not included)...[facility] 05-17-2024 NoteHNO ID: [id number] Author: ZOHAIB GERMAN MD Service: ? Author Type: Physician Type: Progress Notes Filed: 05/17/2024 13:34 Note Text: Rheumatology Outpatient Clinic Date of Service: 05/17/2024 Patient: Kathy Washburn Medical Record: [id number] Primary Care Physician: Ayanna Vicente DO Last Rheumatology visit: None at [facility] Referring Provider: No referring provider defined for [...] unit/mL injection Inject subcutaneously (more content not included)...[facility]11-04-2024 History of Present illness Narrative* Zohaib German MD - 05/17/2024 12:56 PM EST Images from the original note were not included. Rheumatology Outpatient Clinic Date of Service: 05/17/2024 Patient: Kathy Washburn Medical Record: [id number] Primary Care Physician: Ayanna Vicente DO Last Rheumatology visit: None at [facility] Referring Provider: No referring provider defined for [...] treatment with hydroxychloroquine previously for her joint problems.She carries a past medical history of type 2 diabetes, hyperlipidemia, hypertension, hypothyroidismand neuropathy. She states that she has run out of the hydroxychloroquine sometime ago and has beenexperiencing increased stiffness and pain in her fingers and hands, shoulders more so on the right than the left, the left hip and both knees. In terms of the left hip he is status post spine surgeryin the remote past and this seems to [...] for depression but these 2 can overlap forfibromyalgia pain management. She states that her most recent hemoglobin A1c was still elevated at 8.5 and is on escalating doses of insulin. She does have an upcoming eye exam as a routine. She is currently being treated for UTI with Macrobid and has several more days to complete that course. Other diop her general health has been relatively stable. [...] ABDOM HYSTERECTOMY TOTAL KNEE REPLACEMENT Bilateral 2012 Family History FAMILY HISTORY Problem Relation Age [...] Reviewed on 07/19/2022 Name Date COVID-19 vaccine ([employer]) 03/19/2024, 06/23/2023 COVID-19 vaccine, bivalent ([employer]) 04/18/2022 COVID-19 vaccine, monovalent ([employer]) 06/01/2021, 09/01/2020, 08/11/2020 Physical Exam GENERAL APPEARANCE: Well groomed. Alert and oriented x 3. In no distress. VITAL SIGNS: BP 117/75 Pulse 62 Ht 5' 7.992 (1.73m) Wt 227 lb 15.3 oz (103.4kg) BMI 34.67 kg/(m^2). SKIN: No rash, thickening, nodules, discoloration. EYES: PERRL, EOMI. No inflammation seen. HENT: External examination and palpation of the ears and nose normal. Lips, teeth, and gums normal.Oropharynx and tongue normal. No lesions or exudate. 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 PresentlyI believe the best approach is to treat her arthritis first and foremost and we will resume the hydroxychloroquine at 400 mg daily. I dispensed 180 tablets and 3 additional refills. I revisited the side effect profile of the hydroxychloroquine including the need for annual eye exam. As stated abovecinthia will be undergoing her baseline eye exam later this month. She can initiate the hydroxychloroquine after she completes her course some Macrobid in the next week. Return in about 6 months (around 11/14/2024). I spent a total of patient 60 minutes on the date of the service which included preparing to see the patient, xiaw-uj-jepb patient care, completing clinical documentation, obtaining and/or reviewing separately obtained history, performing a medically appropriate examination, counseling and educating the patient/family/caregiver, and ordering medications, tests, or procedures. Medical Decision Making: Problems: Moderate: 1+ chronic illnesses with change and New problem with uncertain prognosis Risk: High: High risk from testing/treatment Medical Decision Making Level: 4 - Moderate Zohaib German MD Rheumatology Date: May 17, 2024 Time: 12:56 PM documented in this [facility] Hospital Discharge instructionsAmbulatory Orders* Referral to Neurology Time Frame: 05/11/24, Location: None Selected [facility] Work Phone: 1(248) 945-477408-26-2024 Evaluation note* Author Ayanna [facility] Authored March 08, 2024 3: 24pm The above note written by __ _Melanie Conde____ acting as human recorder, note dictated by Dr. Slater .I performed the above HPI, ROS, and Examination. I formulated and dictated the treatment plan and was present for entire encounter. Ayanna Vicente D.O. Author Ayanna [facility] Authored February 05, 2024 9:11 am The above note written by __ _Melanie Conde____ acting as human recorder, note dictated by Dr. Slater .I performed the above HPI, ROS, and Examination. I formulated and dictated the treatment plan and was present for entire encounter. Ayanna Vicente D.O. [facility] Work Phone: 1(320) 144-753808-26-2024 Evaluation note* Author Ayanna [facility] Authored March 08, 2024 3: 24pm The above note written by __ _Melanie Conde____ acting as human recorder, note dictated by Dr. Slater .I performed the above HPI, ROS, and Examination. I formulated and dictated the treatment plan and was present for entire encounter. Ayanna Vicente D.O. Author Ayanna [facility] Authored April 05, 2024 10:47am The above note written by __ _Melanie Conde____ acting as human recorder, note dictated by Dr. Slater .I performed the above HPI, ROS, and Examination. I formulated and dictated the treatment plan and was present for entire encounter. Ayanna Vicente D.O. [facility] Work Phone: 1(210) 854-733708-26-2024 Evaluation note* Author Ayanna [facility] Authored March 08, 2024 3: 24pm The above note written by __ _Melanie Conde____ acting as human recorder, note dictated by Dr. Slater .I performed the above HPI, ROS, and Examination. I formulated and dictated the treatment plan and was present for entire encounter. Ayanna Vicente D.O. Author [facility] Authored May 11, 2024 3 :30pm The above note written by __ _Melanie Conde____ acting as human recorder, note dictated by Dr. Slater .I performed the above HPI, ROS, and Examination. I formulated and dictated the treatment plan and was present for entire encounter. Ayanna Vicente D.O. Author [facility] Authored April 05, 2024 10:47am The above note written by __ _Melanie Conde____ acting as human recorder, note dictated by Dr. Slater .I performed the above HPI, ROS, and Examination. I formulated and dictated the treatment plan and was present for entire encounter. Ayanna Vicente D.O. [facility] Work Phone: 1(243) [phone] Evaluation note* Author [facility] Authored March 08, 2024 2: 24pm The above note written by __ _Melanie Conde____ acting as human recorder, note dictated by Dr. Slater .I performed the above HPI, ROS, and Examination. I formulated and dictated the treatment plan and was present for entire encounter. Ayanna Vicente D.O. Author [facility] Authored May 11, 2024 2 :30pm The above note written by __ _Melanie Conde____ acting as human recorder, note dictated by Dr. Slater .I performed the above HPI, ROS, and Examination. I formulated and dictated the treatment plan and was present for entire encounter. Ayanna Vicente D.O. Author [facility] Authored April 05, 2024 9:47am The above note written by __ _Melanie Conde____ acting as human recorder, note dictated by Dr. Meridavin .I performed the above HPI, ROS, and Examination. I formulated and dictated the treatment plan and was present for entire encounter. Ayanna Vicente D.O. [facility] Work Phone: 1(591) 101-261008-13-2024 Hospital Discharge instructions Patient Education 02/24/2024 10:42:26 [...] your health care provider. General instructions Take gbhp-ylv-sljksgv and prescription medicines only as told by [...] provider. Document Revised: 03/19/2021 Document Reviewed: 03/19/2021 [email or web address] Patient Education 2022 [employer] Follow Up Care 02/11/2023 12:11:14 With:JAX BECKMAN, SUSAN Miller, URL Address: [address] [place] [address]. [place] [address] [phone] When: Unknown Comments:6 mos (no labs) [facility] 08-13-2024 NotePatient Education Obstetrics and Gynecology Overactive [...] health care provider. General instructions ? Take eylz-row-tujlzhi and prescription medicines only as told by [...] help your health care (more content not included)...[facility]07-25-2024 Evaluation note* Author Ayanna Vicente [facility] Authored February 05, 2024 9:11 am The above note written by __ _Melanie Conde____ acting as human recorder, note dictated by Dr. Slater .I performed the above HPI, ROS, and Examination. I formulated and dictated the treatment plan and was present for entire encounter. Ayanna Vicente D.O. [facility] Work Phone: 1(957) 345-372604-09-2024 Evaluation note* Author Ayanna Vicente [facility] Authored October 21, 2023 4:11 pm The above note written by __ _Melanie Conde____ acting as human recorder, note dictated by Dr. Slater .I performed the above HPI, ROS, and Examination. I formulated and dictated the treatment plan and was present for entire encounter. Ayanna Vicente D.O. [facility] Work Phone: 1(635) 968-981202-15-2024 History of Present illness Narrative* James Smith, DPM - 08/28/2023 1:45 PM EST Images from [...] 150 Interested in diabetic shoes/inserts Dispensed Kandy [id number] in Purple, size 11 M on 04/11/22. [...] open areas were noted. documented in this encounterRanken Jordan Pediatric Specialty [id number] Evaluation note* Encounter Date Diagnosis Assessment Notes [...] sacroiliac steroidal injection. Refer the patient to [facility] for aqua therapy. Discuss with primary care physician, Dr. Vicente, about prescribing a steroid prednisone for temporary relief during the patient's cruise, in the event unable to see painmanagment before vacation. Order a lidocaine patch for the patient to use on the sacroiliac and hip area for pain relief.Recommend uajo-ypt-pplqamc Thermacare or heat patches to use alongside the lidocaine patch. 3. 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 Monitor the degeneration and consider a preventative approach. Encourage the patient to take Tylenol arthritis for overall help. 4. Bone density: - Plan: Dexa scan within normal limits. Jul, Pain in left hip (ICD-10 - M25.552) Jul, Sacroiliac inflammation (ICD-10 - M46.1) Jul, Cervical pain (ICD-10 - M54.2) Jul, DDD (degenerative disc disease), lumbar (ICD-10 - M51.36) [facility] Other 01-03-2024 Evaluation note* Encounter Date Diagnosis Assessment Notes [...] She will continue to monitor her memory. [facility] Other 10-03-2023 Evaluation note* Encounter Date Diagnosis [...] s he has about immunizations were answered. [facility] Other 10-02-2023 Evaluation note* Encounter Date Diagnosis Assessment Notes Treatment Notes Treatment Clinical Notes Apr, Insomnia (ICD-10 - G47.00) Apr, Neuropathy (ICD-10 - G62.9) [facility] Other 08-15-2023 Evaluation note* Encounter Date Diagnosis [...] is provided for her to attend PT. 15 Feb, 2023 Lumbar disc disease (ICD-10 - M51.9) [facility] Other 08-01-2023 Hospital Discharge instructions Patient Education [...] your health care provider. General instructions Take cvkb-yyo-cbocvqb and prescription medicines only as told by [...] provider. Document Revised: 03/19/2021 Document Reviewed: 03/19/2021 [email or web address] Patient Education 2022 [employer] Follow Up Care 01/23/2023 15:26:59 With:SUSAN RANDOLPH PA-C, URL Address: [facility] [place] [address] When: Unknown [facility] 07-28-2023 History of Present illness Narrative* Santos Lares MD - 02/07/2023 1:38 PM EDT Images from the original note were not included. PATIENT NAME: Kathy Noelly CLINIC NO.: [id number] ATTENDING PHYSICIAN: Santos Lares MD DATE OF SERVICE: February 07, 2023 Some of the elements of this note have been copied from my previous progress note dated 07/19/2022. All the information has been reviewed carefully. Dear Dr. Santos Lares here is an update on a [...] Range Status 07/19/2022 5.0 % Final Abs Sarpy Date Value Ref Range Status 07/19/2022 0.84 [...] do not hesitate to contact me at [phone]. Santos Lares MD Hematology/Medical Oncology [facility] spent a total of 30 minutes on the date of the service which included preparing to see the patient, jtjf-pt-blfz patient care, completing clinical documentation, obtaining and/or reviewing separately obtained history, counseling and educating the patient/family/caregiver, and ordering medications, tests, or procedures. CC: Ayanna Vicente DO documented in this encounterMer[facility]06-27-2023 Evaluation note* Encounter Date Diagnosis Assessment [...] prescription of Cipro when she was in [place], she finds that her symptoms seem to happen when she is traveling. We discussed her seeing Dr. El for evaluation due to recurrent urine infections. She voices that she has not contacted that office but will do this. Dec, Other 1:43 PM - 1:59 PM [facility] Other 06-26-2023 Evaluation note* Encounter Date Diagnosis Assessment Notes Treatment Notes Treatment Clinical Notes Dec, Hyperlipidemia (ICD-10 - E78.5) [facility] Other 04-05-2023 Evaluation note* Encounter Date Diagnosis Assessment Notes Treatment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 LEFT RADEX RIBS UNI W/POSTEROANT CH MINIMUM 3 VIEWS Santos Lares MD [address] [place] [address] Xr Imaging Referral ID Status Reason Start Date Expiration Date Visits Requested Visits Authorized [id number] Pending Review Auto-Generat ed Referral 07/19/2022 08/18/2023 1 1 * Consult, Test, Treat (Routine) - Authorized Specialty Diagnoses / Procedures Referred By Contac t Referred To Contact Ent - Otolaryngology Diagnoses Right ear pain Procedures CONSULT TO ENT OFFICE/OUTPATIENT [facility] MDM 60-74 MINUTES Santos Lares MD [address] [place] [address] Referral ID Status Reason Start Date Expiration Date Visits Requested Visits Authorized [id number] Authorized PCP Requested Referral 07/19/2022 07/19/2023 1 1 [facility] for referral (narrative)* Reason appt pt needs cons ult to see Homa Mckeon /Dr. Corea for evaluation of lumbar pain Diagnosis 1 Other spondylosis wi th radiculopathy, lumbar region (M47.26) Referral Organization [facility] Referring Provider First Name Ayanna Referring Provider Last Name Sakina Referring Provider Specialty Family Neel cordova Referred Organization [facility] urosurgery Referred Provider Homa Mckeon Referred Address [address] [address] ,[place], [place],[address] Referred Provider Specialty Nurse Uli cotto Referral Priority Routine General Notes Nereyda Sanchez 04/15/2023 03:33:35 PM > referral sent p2p. pt understands she will be contacted to schedule this appt [facility] [email or web address] Other reason for visit Narrativereview labs, refill medication, discuss multiple issues, see treatment plan for further information [facility] Other reason for visit NarrativePT HERE AT REQUEST OF DR VICENTE FOR EVALUATION AND TREATMENT OF CHANGE IN STOOL HABITS AND HISTORY OF IRRITABLE BOWEL SYNDROME AND COLON POLYPS, REFERRAL NOTE RECEIVEDNort [employer] Other Reywft for visit Narrativereview labs/med refill, discuss multiple issues see treatment planNossm [facility] [employer] Other reason for visit NarrativeNeurosurgery Referral Update [facility] Other reason for visit Narrative* Consultation (Routine) - Closed Specialty Diagnoses / Procedures Referred By Selin vasquez Referred To Contact Neurology Diagnoses Other amnesia Procedures HI OFFICE/OUTPATIENT NEW LOW MDM 30 MINUTES Ayanna Vicente MD [address] [place] [address] Phone: tel: fax: Babita Guillaume DO [address] [place] [address] Phone: tel: fax: Referral ID Status Reason Start Date Expiration Date V isits Requested Visits Authorized [id number] Closed Consult and Treat 05/21/2024 11/17/2024 1 1 [facility] Narrative* Consultation (Routine) - Closed Specialty Diagnoses / Procedures Referred By Selin vasquez Referred To Contact Psychology Diagnoses Cognitive impairment Procedures HI OFFICE/OUTPATIENT NEW HIGH MDM Babita Guillaume DO [address] [place] [address] Phone: tel: fax: Enrique Hammonds, PhD [address] [address] Phone: tel: fax: Referral ID Status Reason Start Date Expiration Date V isits Requested Visits Authorized [id number] Closed Specialty Services Required 06/17/2024 12/14/2024 1 1 [facility] Summary Purpose Family History No Family History [...] Advance Directives No March 08, 2017 11:39am Advance Directive Response Recorded Date/ Time Advance Directives No August 11, 2024 1:41pm Advance Directive Response Recorded Date/ Time Advance Directives No August 11, 2024 2:41pm Reason for Referral Reason evaluate and tr eat Diagnosis 1 Pain in right hip (M 25.551) Referral Organization [facility] urosurgery Referring Provider First Name Homa Referring Provider Last Name Mike Referring Provider Specialty Nurse Pract itioner Referred Organization [facility] Referred Provider Bonnie Slade Referred Address [address], [place],[address] Referred Provider Specialty Pain Medicin e Referral Priority Routine General Notes Susan Ugarte 04:33:20 PM >received today, holding referral for todays visit note to be locked Reason evaluate and t reat for hip pain Diagnosis 1 Pain in right hip (M 25.551) Referral Organization [facility] urosurgery Referring Provider First Name Homa Referring Provider Last Name Mike Referring Provider Specialty Nurse Pract batsheva Referred Organization [facility] Ortho ped[facility] Referred Provider Gume Macedo Referred Address [address],[place],[address] Referred Provider Specialty Orthopedic S urgery Referral Priority Routine General Notes Susan Ugarte 04:34:14 PM >received today, sending p2p at this time for scheduling Reason Aqua therapy - evalu ate and treat Diagnosis 1 Pain in right hip (M 25.551) Diagnosis 2 Lumbar pain (M54.50) Referral Organization [facility] Referring Provider First Name Homa Referring Provider Last Name Mike Referring Provider Specialty Nurse Pract batsheva Referred Organization [facility] Referred Address [address], [place],[address] Referred Provider Specialty Physical The rapist Referral Priority Routine Reason appt pt would like to discuss hip, back, knee and sciatic pain Diagnosis 1 Other spondylosis wi th radiculopathy, lumbar region (M47.26) [facility] Referring Provider First Name Ayanna Referring Provider Last Name Sakina Referring Provider Specialty Family Neel cordova Referred Organization [facility] urosurger Referred Provider Homa Mckeon Referred Address [address] ,[place],[address] Referred Provider Specialty Nurse Uli cotto Referral Priority Routine General Notes Nereyda Sanchez 07/16/2023 03:06:01 PM > referral sent p2p. pt understands she will be contacted to schedule this appt Reason appt pt is lu gilliam to see any of the providers consult for eval and treatment of rheumatism/prescribing of Plaquenil Diagnosis 1 Rheumatism, unspecif ied (M79.0) Referral Organization [facility] Referring Provider First Name Ayanna Referring Provider Last Name Sakina Referring Provider Specialty Family Neel cordova Referred Organization [facility] Referred Provider Esteban Saravia Referred Address [address] [place],[address] Referred Provider Specialty Rheumatology Referral Priority Routine General Notes SanchezGerri williamh 05/14/2022 03:07:43 PM > referral faxed with TE message, last visit note and insurance cards. pt understands that she will be contacted to schedule this appt. Reason appt 05/22/22 at 3pm pt needs consult to evaluate right wrist fracture 10 weeks ago, but continued pain in the right hand/wrist Diagnosis 1 Wrist fracture, righ t (S62.101A) Referral Organization [facility] Referring Provider First Name Ayanna Referring Provider Last Name Sakina Referring Provider Specialty Family Prac art Referred Organization [facility] Referred Provider Penny Mike Referred Address [address] [place],[address] Referred Provider Specialty Hand Surgery Referral Priority Routine Referral Appointment Date 2022-05-22 General Notes Farida Sanchezorah 04/02/2022 01:53:20 PM > referral sent p2p. pt understands that she will be contacted to schedule this appt. Nereyda Sanchez 04/04/2022 09:15:21 AM > appt scheduled on 05/22/22 at 3pm Reason appt pt needs cons ult to discuss recurrent back pain/discuss injections Diagnosis 1 Other spondylosis wi th radiculopathy, lumbar region (M47.26) Referral Organization [facility] [employer] [place] Referring Provider First Name Ayanna Referring Provider Last Name Sakina Referring Provider Specialty Family Prac art Referred Organization [facility] Referred Provider Anthony Morales Referred Address [address] [place],[address] Referred Provider Specialty Psychiatry, Neurology (Osteopaths only) Referral Priority Routine General Notes LauraFaridaNereyda 04/02/2022 02:48:49 PM > FLORI referral hard [...] Diagnosis 1 Leukocytosis (D72.82 9) Referral Organization [facility] [place] Referring Provider First Name Ayanna Referring Provider Last Name Sakina Referring Provider Specialty Family Prac art Referred Organization [facility] Referred Provider Saqib Coleman Referred Address [address] [place], [place],[address] Referred Provider Specialty Hematology/O ncology Referral Priority [...] Knee pain, right (M2 5.561) Referral Organization [facility] [place] Referring Provider First Name Ayanna Referring Provider Last Name Sakina Referring Provider Specialty Family Prac art Referred Organization [facility] Referred Provider Zohaib Akins II Referred Address [address], [place],[address] Referred Provider Specialty Orthopedic S urgery Referral Priority Routine General Notes Nereyda Sanchez 02/06/2022 02:16:49 PM > referral sent p2p. pt understands she will be contacted to schedule this appt. Reason appt pt needs cons ult to discuss change in stool habits, history of colon polyps, hx of IBS Diagnosis 1 Change in stool jacquie yesi (R19.4) Referral Organization [facility] [place] Referring Provider First Name Ayanna Referring Provider Last Name Sakina Referring Provider Specialty Family Prac art Referred [facility] Referred Provider Ayanna Milner Referred Address [address] [address] ,[place], [place],[address] Referred Provider Specialty Gastroentero logy Referral Priority [...] radiculopathy Neuropathy Other abnormal blood chemistry Other fpc (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 therapy Peripheral edema HLD (hyperlipidemia) Hypertension Hypothyroidism Insomnia Chief Complaint Amb Documentation E11.65 E78.5 E03.9 R79.89 N30.90 Amb Documentation review labs/med refill sore throat, congestion, cough Reason for Visit Chronic lymphocytic leukemia Cystitis Diabetes type 2, uncontrolled Lumbar disc disease with radiculopathy Neuropathy Other abnormal blood chemistry 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 Peripheral edema HLD (hyperlipidemia) [...] 9:49am Irritable bowel syndrome with diarrhea S eptember 2023 9:49am Other spondylosis with radiculopathy, [facility] April 05, 2024 9:49am Cystitis May 11, 2024 2 :37pm Diabetes type 2, uncontrolled May 112023 2:37pm Hip pain, left May 11, 2024 2 :37pm Knee pain, left May 11, 2024 2 :37pm Memory changes May 11, 2024 2 :37pm Other abnormal blood chemistry April 142023 2:37pm Other spondylosis with radiculopathy, [facility] May 11, 2024 2:37pm HLD (hyperlipidemia) May 11, 2024 2:37pm Hypothyroidism May 11, 2024 2 :37pm BMI 32.0-32.9,adult May 12, 2024 1 :35pm Chronic insomnia May 12, 2024 1 :35pm Hypnotic-dependent sleep disorder Octobe r 2023 1:35pm Chief Complaint Admit Date Z12.May 18, 2024 2 :22pm M25.552 - Pain in left hip May 11:06am Unknown June 15, 2024 9 :00am Cystitis N30.90 August 10, 2024 1 1:42am Amb Documentation August 11, 2024 8 :09am med refill August 11, 2024 1 :16pm Reason for Visit Admit Date Cystitis August 11, 2024 1 :16pm Irritable bowel syndrome with diarrhea J anuary 2024 1:16pm Other spondylosis with radiculopathy, [facility] August 11, 2024 1:16pm Chief Complaint Admit Date Z12.May 18, 2024 2 :22pm M25.552 - Pain in left hip May 11:06am Unknown June 15, 2024 9 :00am Cystitis August 10, 2024 1 1:42am Chief Complaint Admit Date Unknown June 15, 2024 9 :00am Cystitis N30.90 August 10, 2024 1 1:42am Amb Documentation August 11, 2024 8 :09am med refill August 11, 2024 1 :16pm Chief Complaint Admit Date med refill/ review lab November 10, 2024 3:41pm Reason for Visit Admit Date Chronic kidney disease, stage 3b October 142024 3:41pm Chronic lymphocytic leukemia November 10, 2024 3:41pm Cystitis November 10, 2024 3:4 1pm Diabetes November 10, 2024 3:4 1pm Other spondylosis with radiculopathy, tania mbar region November 10, 2024 3:41pm Peripheral edema November 10, 2024 3:4 1pm Premature beat November 10, 2024 3:4 1pm Rheumatism November 10, 2024 3:4 1pm HLD (hyperlipidemia) November 10, 2024 3: 41pm Hypertension November 10, 2024 3:4 1pm Hypothyroidism November 10, 2024 3:4 1pm Additional Source Comments INFORMATION SOURCE (unrecogn ized section and content) DATE CREATED AUTHOR 01/06/2021 [facility] DATE CREATED AUTHOR AUTHOR'S ORGANIZ ATION 08/16/2022 [facility] DATE CREATED AUTHOR AUTHOR'S ORGANIZ ATION 11/13/2022 [facility] DATE CREATED AUTHOR AUTHOR'S ORGANIZ ATION 08/10/2024 [facility] DATE CREATED AUTHOR AUTHOR'S ORGANIZ ATION 09/17/2024 [facility] DATE CREATED AUTHOR AUTHOR'S ORGANIZ ATION 10/26/2024 [facility] DATE CREATED AUTHOR AUTHOR'S ORGANIZ ATION 11/10/2024 [facility] DATE CREATED AUTHOR AUTHOR'S ORGANIZ ATION 11/20/2024 [facility] Source Comments (unrecognize d section and content) In the event this informatio n is protected by the [facility] Confidentiality of Alcohol and Drug Abuse Patient Records regulations: The Federal rules restrict any use of the information to criminally investigate or prosecute any alcohol or drug abuse patient.[facility] the event this information is protected by the Federal Confidentiality of Alcohol and Drug Abuse Patient Records regulations: The Federal rules restrict any use of the information to criminally investigate or prosecute any alcohol or drug abuse patient.[facility] the event this information is protected by the Federal Confidentiality of Alcohol and Drug Abuse Patient Records regulations: The Federal rules restrict any use of the information to criminally investigate or prosecute any alcohol or drug abuse patient.[facility] the event this information is protected by the Federal Confidentiality of Alcohol and Drug Abuse Patient Records regulations: The Federal rules restrict any use of the information to criminally investigate or prosecute any alcohol or drug abuse patient.[facility] the event this information is protected by the Federal Confidentiality of Alcohol and Drug Abuse Patient Records regulations: The Federal rules restrict any use of the information to criminally investigate or prosecute any alcohol or drug abuse patient.[facility] the event this information is protected by the Federal Confidentiality of Alcohol and Drug Abuse Patient Records regulations: The Federal rules restrict any use of the information to criminally investigate or prosecute any alcohol or drug abuse patient.[facility] the event this information is protected by the Federal Confidentiality of Alcohol and Drug Abuse Patient Records regulations: The Federal rules restrict any use of the information to criminally investigate or prosecute any alcohol or drug abuse patient.[facility] the event this information is protected by the Federal Confidentiality of Alcohol and Drug Abuse Patient Records regulations: The Federal rules restrict any use of the information to criminally investigate or prosecute any alcohol or drug abuse patient.[facility] the event this information is protected by the Federal Confidentiality of Alcohol and Drug Abuse Patient Records regulations: The Federal rules restrict any use of the information to criminally investigate or prosecute any alcohol or drug abuse patient.[facility] the event this information is protected by the Federal Confidentiality of Alcohol and Drug Abuse Patient Records regulations: The Federal rules restrict any use of the information to criminally investigate or prosecute any alcohol or drug abuse patient.[facility] the event this information is protected by the Federal Confidentiality of Alcohol and Drug Abuse Patient Records regulations: The Federal rules restrict any use of the information to criminally investigate or prosecute any alcohol or drug abuse patient.[facility] REASON FOR VISIT (unrecogniz ed section and content) Reason Comments Consult Reason Comments Care Coordination Results Reason Comments lymphocytosis Reason Comments Leukemia 3 month follow up Reason Comments Referral Information ENT Reason Comments CLL (chronic lymphocytic leukemia) Reason Comments Toenail Care Reason Comments Joint Pain Reason Comments Leukemia Transition Of Care Reason Comments Schedule colonoscopy, hx of colon polyps Reason Comments Cognitive Impairment Reason Comments Records faxed Care Teams (unrecognized sec tion and content) Team Status: Active Member Role Status Dates Ayanna Vicente , DO Family Provider Active Team Status: Inactive Member Role Status Dates Ayanna Vicente , DO Primary Care Provide r, Attending Provider Active Start: May 18, 2024 End: May 18, 2024 Team Status: Inactive Member Role Status Dates Ayanna Vicente , DO Primary Care Provide r, Attending Provider Active Start: May 26, 2024 End: May 26, 2024 Team Status: Active Member Role Status Dates Ayanna Vicente , DO Primary Care Provide r, Attending Provider Active Start: May 26, 2024 Team Status: Inactive Member Role Status Dates Tri Gomeze Ancelmo , DO Attending Provider Active Start: June 15, 2024 End: June 15, 2024 Team Status: Active Member Role Status Dates Ayanna Vicente , DO Primary Care Provider Active S tart: June 15, 2024 Tri Vasquez Marker , DO Attending Provider Active Start: June 15, 2024 Team Status: Active Member Role Status Dates Ayanna Vicente , DO Primary Care Provide r, Attending Provider Active Start: June 22, 2024 Team Status: Inactive Member Role Status Dates Ayanna Vicente , DO Attending Provider Active Star t: August 10, 2024 End: August 10, 2024 Team Status: Inactive Member Role Status [...] ALLYSSA Other Provider Active Laura [place] , ALLYSSA Other Provider Active Yuliana Hale MD Other Provider Active Herman Kevin MD Other Provider Active Kitty Powell , TIE KNITTER HELPER Other Provider Active Madeline Juarez , DO [...] MD Other Provider Active Yanira Najera , PRESSROOM FOREMAN-C Other Provider Active Salas Winslow MD Other [...] Mike MD Other Provider Active Susan Quarles PRESSROOM FOREMAN-C Other Provider Active Gume Macedo , DO [...] , DO Family Provider Active Ayanna Vicente DO Primary Care Provider Active Specimen Accessioner Relationship Specialty Start Date End Date Ayanna Vicente, DO [address] [place] [address] PCP - General Family Medicine 08/01/11 Ayanna Vicente, DO [address] [place] [address] Referring Family Medicine 10/04/20 Ayanna Vicente, DO [address] [place] [address] Referring Family Medicine 01/09/21 Specimen Accessioner Relationship Specialty Start Date End Date Ayanna Vicente, DO [address] [place] [address] PCP - General Family Medicine 08/01/11 Ayanna Vicente, DO [address] [place] [address] Referring Family Medicine 10/04/20 Ayanna Vicente, DO [address] [place] [address] Referring Family Medicine 01/09/21 Specimen Accessioner Relationship Specialty Start Date End Date Ayanna Vicente, DO [address] [place] [address] PCP - General Family Medicine 08/01/11 Ayanna Vicente, DO [address] [place] [address] Referring Family Medicine 10/04/20 Ayanna Vicente, DO [address] [place] [address] Referring Family Medicine 01/09/21 Specimen Accessioner Relationship Specialty Start Date End Date Ayanna Vicente, DO [address] [place] [address] PCP - General Family Medicine 08/01/11 Ayanna Vicente, DO [address] [place] [address] Referring Family Medicine 10/04/20 Ayanna Vicente, DO [address] [place] [address] Referring Family Medicine 01/09/21 Team Status: Inactive Member Role Status Dates Ayanna Vicente DO Primary Care Provider, Family Provid er Active Santos Lares MD Attending Provider Active Team Status: Inactive Member Role Status Dates Ayanna Vicente DO Primary Care Provider, Family Provid er Active PABLO Sam Attending Provider Active Specimen Accessioner Relationship Specialty Start Date End Date Ayanna Vicente DO [address] [place] [address] PCP - General Family Medicine 08/01/11 Ayanna Vicente DO [address] [place] [address] Referring Family Medicine 10/04/20 Ayanna Vicente DO [address] [place] [address] Referring Family Medicine 01/09/21 Specimen Accessioner Relationship Specialty Start Date End Date Ayanna Vicente MD [address] [place] [address] PCP - General Family Medicine 12/10/22 Specimen Accessioner Relationship Specialty Start Date End Date Ayanna Vicente MD [address] [place], [place] [id number] PCP - General Family Medicine 12/10/22 Team Status: Inactive Member Role Status Dates VERNON VasquezC Attending Provider Active Start: August 12, 2023 [...] Status: Active Member Role Status Dates Ayanna Vicenet DO Primary Care Provider Active S tart: October 20, 2023 Melanie Conde LPN Attending Provider Active St art: October 20, 2023 Team Status: Inactive Member Role Status Dates Ayanna Vicente DO Primary Care Provide r, Attending Provider Active Start: October 21, 2023 End: October 21, 2023 Team Status: Inactive Member Role Status Kayla Ayanna Vicente DO Primary Care Provider Active [...] Team Status: Inactive Member Role Status Kayla Ayanna Vicente DO Primary Care Provide r, Attending Provider Active Start: March 08, 2024 End: March 08, 2024 Team Status: Inactive Member Role Status Kayla Ayanna Vicente DO Primary Care Provide r, Attending Provider Active Start: April 05, 2024 End: April 05, 2024 Team Status: Inactive Member Role Status Kayla Ayanna Vicente DO Primary Care Provide r, Attending Provider Active Start: May 06, 2024 End: May 06, 2024 Team Status: Inactive Member Role Status Kayla Ayanna Vicente DO Primary Care Provide r, Attending Provider Active Start: May 11, 2024 End: May 11, 2024 Team Status: Inactive Member Role Status Dates Ayanna Dubon MD Attending Provider Active S tart: May 12, 2024 End: May 12, 2024 Ayanna Vicente DO Primary Care Provide r, Referring Provider Active Start: May 12, 2024 End: May 12, 2024 Specimen Accessioner Relationship Specialty Start Date End Date Ayanna Vicente DO [address] [place] [address] PCP - General Family Medicine 08/01/11 Ayanna Vicente DO [address] [place] [id number] Referring Family Medicine 10/04/20 Girvin, Ayanna C, DO [address] [place] [address] Referring Family Medicine 01/09/21 Specimen Accessioner Relationship Specialty Start Date End Date Ayanna Vicente, DO [address] [place] [address] PCP - General Family Medicine 08/01/11 Ayanna Vicente, DO [address] [place] [address] Referring Family Medicine 10/04/20 Ayanna Vicente, DO [address] [place] [address] Referring Family Medicine 01/09/21 Specimen Accessioner Relationship Specialty Start Date End Date Ayanna Vicente, DO [address] [place] [address] PCP - General Family Medicine 08/01/11 Ayanna Vicente, DO [address] [place] [address] Referring Family Medicine 10/04/20 Ayanna Vicente, DO [address] [place] [address] Referring Family Medicine 01/09/21 Specimen Accessioner Relationship Specialty Start Date End Date Ayanna Vicente MD [address] [place], [place] [id number] PCP - General Family Medicine 12/10/22 Specimen Accessioner Relationship Specialty Start Date End Date Ayanna Vicente MD [address] [place] [address] PCP - General Family Medicine 12/10/22 Specimen Accessioner Relationship Specialty Start Date End Date Aaynna Vicente MD [address] [place] [address] PCP - General Family Medicine 12/10/22 Specimen Accessioner Relationship Specialty Start Date End Date Ayanna Vicente MD [address] [place] [address] PCP - General Family Medicine 12/10/22 Specimen Accessioner Relationship Specialty Start Date End Date Ayanna Vicente MD [address] [place] [address] PCP - General Family Medicine 12/10/22 Specimen Accessioner Relationship Specialty Start Date End Date Ayanna Vicente MD [address] [place] [address] PCP - General Family Medicine 12/10/22 Specimen Accessioner Relationship Specialty Start Date End Date Ayanna Vicente MD [address] [place] [address] PCP - General Family Medicine 12/10/22 Babita Guillaume DO [address] [place] [address] Referring Physician Neurology 08/09/24 Specimen Accessioner Relationship Specialty Start Date End Date Ayanna Vicente MD [address] [place] [address] PCP - General Family Medicine 12/10/22 Babita Guillaume DO [address] [place] [address] Referring Physician Neurology 08/09/24 Team Status: Active Member Role Status Dates Melanie Conde LPN Attending Provider Active St art: August 11, 2024 Team Status: Inactive Member Role Status Dates Ayanna Vicente DO Primary Care Provide r, Attending Provider Active Start: August 11, 2024 End: August 11, 2024 Team Status: Active Member Role Status Dates Ayanna Vicente DO Primary Care Provide r, Attending Provider Active Start: September 03, 2024 Team Status: Active Member Role Status Dates Ayanna Vicente DO Attending Provider Active Star t: November 01, 2024 Team Status: Inactive Member Role Status Dates Ayanna Vicente DO Primary Care Provide r, Attending Provider Active Start: November 10, 2024 End: November 10, 2024 Specimen Accessioner Relationship Specialty Start Date End Date Ayanna Vicnete DO [address] [place] [address] PCP - General Family Medicine 08/01/11 Ayanna Vicente DO [address] [place] [address] Referring Family Medicine 10/04/20 Ayanna Vicente DO [address] [place] [address] Referring Family Medicine 01/09/21 Goals (unrecognized section [...] BE BASED ON THE PRIMARY CLINICAL RECORDS. [employer] provides no warranty or guarantee of the accuracy or completeness of information in this document.
--- NOTE | 2024-12-01 09:38 | PM.CN ---
Consult Note: HPI Data of Consult Patient: known to practice within the last 3 years Requesting Physician: Helen De La Paz NP Primary Care Provider: AYANNA VICENTE Consult Narrative Reason for consult: f/u Narrative: Kathy Washburn an 84 year old female with longstanding low back and SIJ pain secondary to failed back syndrome, lumbar ddd, lumbar spondylosis, lumbar stenosis, and sacroiliitis presents for evaluation. pt has failed to benefit from > 6 weeks of provider guided HEP, PT, heat, ice, tylenol, and NSAIDs. pain today 4/10 stabbing, tender, burn to bilateral low back and right hip. pain increasing to 10/10 with standing, walking, housework, ADLs, activity. Pain improved with sitting, lying, and sleep. pt reports left L4/5 L5/S1 TFESI providing 90% improvement in NC symptoms. recently underwent bilateral SIJ injection with mild relief per pt. cc:: CC: Helen De La Paz NP Review of Systems ROS Status of ROS 10 or more systems reviewed and unremarkable except as noted in history and below Musculoskeletal Reports: back pain; Denies: joint pain PFSH PFSH Medical History Osteoarthritis ?M19.90 - Unspecified osteoarthritis, unspecified site (ICD-10) Chronic lymphocytic leukemia ?C91.10 - Chronic lymphocytic leukemia of B-cell type not having achieved remission (ICD-10) Diabetes ?E11.9 - Type 2 diabetes mellitus without complications (ICD-10) Former smoker ?Z87.891 - Personal history of nicotine dependence (ICD-10) High cholesterol ?E78.00 - Pure hypercholesterolemia, unspecified (ICD-10) Hypertension ?I10 - Essential (primary) hypertension (ICD-10) Surgical History S/P lumbar fusion ?Z98.1 - Arthrodesis status (ICD-10) S/P hernia surgery ?Z98.890 - Other specified postprocedural states (ICD-10) ?Z87.19 - Personal history of other diseases of the digestive system (ICD-10) H/O: hysterectomy ?Z90.710 - Acquired absence of both cervix and uterus (ICD-10) Social History Smoking status: Never smoker Little interest or pleasure in doing things: not at all Feeling down, depressed, or hopeless: not at all Meds Home Medications and Allergies Home Medications ?Medication ?Instructions ?Recorded ?Confirmed ?Type B-complex with vitamin C 1 tab PO DAILY 08/25/23 11/01/24 History aspirin 81 mg tablet,delayed 81 mg PO DAILY 08/25/23 11/01/24 History release atorvastatin 20 mg tablet (Lipitor) 20 mg PO DAILY 08/25/23 11/01/24 History cholecalciferol (vitamin D3) 125 125 mcg PO DAILY 08/25/23 11/01/24 History mcg (5,000 unit) capsule ezetimibe 10 mg tablet (Zetia) 10 mg PO DAILY 08/25/23 11/01/24 History levothyroxine 100 mcg tablet 100 mcg PO DAILY 08/25/23 11/01/24 History (Synthroid) lisinopril 10 mg tablet 10 mg PO DAILY 08/25/23 11/01/24 History metformin 1,000 mg tablet 1,000 mg PO BID 08/25/23 11/01/24 History multivitamin 1 tab PO DAILY 08/25/23 11/01/24 History oxybutynin chloride 5 mg tablet 5 mg PO DAILY 08/25/23 11/01/24 History oxycodone-acetaminophen 5 mg-325 1 tab PO BID PRN pain 08/25/23 11/01/24 History mg tablet pregabalin 225 mg capsule (Lyrica) 225 mg PO BID 08/25/23 11/01/24 History propranolol 60 mg tablet 60 mg PO DAILY 08/25/23 11/01/24 History triamterene 37.5 1 tab PO DAILY 08/25/23 11/01/24 History mg-hydrochlorothiazide 25 mg tablet (Maxzide-25mg) venlafaxine 75 mg capsule,extended 75 mg PO DAILY 08/25/23 11/01/24 History release 24 hr (Effexor XR) zolpidem 5 mg tablet 5 mg PO DAILY 08/25/23 11/01/24 History Allergies Allergy/AdvReac Type Severity Reaction Status Date / Time cefpodoxime (From Vantin) Allergy Unknown Unknown Verified 11/01/24 12:40 Exam Constitutional Documenting provider has reviewed patient's vital signs: yes Common normals: no apparent distress, oriented x3, healthy appearing, alert and well nourished General appearance: cooperative HENMT Common normals: normocephalic, hearing grossly normal bilaterally and moist oral mucous membranes Head and scalp: normocephalic Eye Common normals: PERRL Pupil: PERRL Neck & C-Spine Common normals: full ROM General: normal visual inspection Chest Common normals: inspection of chest normal Respiratory Common normals: normal respiratory effort, no retractions and no use of accessory muscles Back & Pelvis Lumbar spine/lower back: ROM limited, pain with ROM, lumbar spinal tenderness Lumbar spinal tenderness location: L3 and L5 and straight leg raise negative bilaterally Sacroiliac joints: SI joints normal Other: bilateral sij negative joseph(patricks), gaenslens, thigh thrust, compression test strength 5/5 in BLE sensation intact BLE Extremity Other: moderate tenderness to right GTB and IT band Neuro Common normals: oriented x3 Sensorium/orientation: alert Psych Common normals: mental status grossly normal, thought process normal, cooperative, affect normal, speech normal and activity/motor behavior normal Speech: normal speech Thought process: normal thought process Results Additional Findings Additional findings: If on a controlled substance or opioids, I have checked an OARRS report on this patient and there are no aberrancies noted in the prescribing history.??If on a controlled substance or opioid a drug screen was completed and reviewed within the last year, and if there has not been a drug screen completed we ordered one today to monitor higher risk, state monitored pain medication use. As part of providing excellent, safe, comprehensive care, the following was completed at our patient's visit: 1. A medication reconciliation and review to ensure accurate knowledge of current/active medications, including asking our patients to inform us about any brxc-kci-uyzlkfr medications or herbal remedies/nutritional supplements/alternative remedies. 2. A review to specifically ensure our patients have had annual screening for screening for depression, screening for tobacco use, and screening for unhealthy alcohol use. For concerning screenings had a discussion with the patient, provided patient education, and recommended follow-up with primary care provider when appropriate. If patient noted with a risk of falling, they received education on strength, gait, and balance training to prevent future risk of falling. Portions of this note may have been carried over from the previous visit and updated as appropriate. Please note this office utilizes paper charting in addition to the electronic medical record. A list of current medications, vitals, and PMH is available there as the clinical staff outside of myself do not have access to [email or web address] charting during the clinic day operations. As part of providing quality comprehensive care the current medications, vitals, and PMH were reviewed in the paper chart. Assessment and Plan Assessment and Plan (1) Sacroiliitis: Assessment and Plan: significant improvement on exam, however mild relief per pt from bilateral SIJ injection 11/01/24, she did note significant improvement while anesthetized (2) Lumbar stenosis with neurogenic claudication: Assessment and Plan: 10/11/24 left L4/5 L5/S1 TFESI >80% improvement ongiong (3) Lumbar spondylosis: Assessment and Plan: The patient has had over 3 months of moderate to severe low back pain with functional impairment and inadequate response to conservative care including NSAIDS (unless there are contraindication such as concurrent blood thinners), multiple oral or topical pain medications, and home exercise program/physical therapy.? Patient has completed >6 weeks of guided home exercise program and/or formal physical therapy program without relief of their symptoms.? I have reviewed the imaging of the lumbar spine and no red flags were identified.? The Oswestry Disability Index was completed, and the patient scored a 40%.? The patient noted the following:?? moderate to severe pain impacting ADLs, sitting, standing, walking, lifting, sleep, social life, travel We discussed the risks and benefits of the procedure with the patient, and we are NOT planning on using sedation as outlined in the guidelines from Medicare unless there is a documented reason that sedation would be strongly recommended.?? ?The procedure will be completed with fluoroscopic guidance.? (4) Chronic right shoulder pain: Assessment and Plan: 08/16/24 right shoulder injection >80% improvement ongoing (5) Failed back syndrome: Assessment and Plan: not interested in spinal cord stim at this time (6) Greater trochanteric bursitis of right hip: (7) Iliotibial band tendinitis of right side: Plan bilateral L3-4 L5-S1 MBB x2 working towards RFA for axial facet mediated low back pain continue current medications through PCP continue HEP as tolerated, declining aquatherapy at this time right GTB injection with Dr Azul f/u after each injection
== END 2024-12-01 09:13 | disposition home or self-care (01) ==
LOC: PM 09:13
PROVIDERS: PCP Family Medicine; Visit Provider Nurse Practitioner
DX: M46.1 Sacroiliitis, not elsewhere classified (principal); M48.062 Spinal stenosis, lumbar region with neurogenic claudication; M47.816 Spondylosis without myelopathy or radiculopathy, lumbar region; M25.511 Pain in right shoulder; M96.1 Postlaminectomy syndrome, not elsewhere classified; M70.61 Trochanteric bursitis, right hip; M76.31 Iliotibial band syndrome, right leg
CPT/HCPCS: G0463

== ENCOUNTER 2024-12-20 11:17 | Day surgery (SDC) | payer MEDICARE, SELFPAY ==
--- OUTSIDE RECORDS SUMMARY | 2024-08-03 09:30 | XMS_ITS ---
Author Organization [facility] Address [address] [place] [address] [place] [address] [place] [address] Care Team Providers Care Blower Installer Name Role Phone Dmitriy Presley DO Primary Care Provider Unavailab Willy Davis Unavailable [phone] REASON FOR VISIT rfc Encounters Encounter Location Date Provider Diagnosis [facility] [address] [place] [address] [place] [address] 08/03/2024 Willy Schwarz Plan Of Treatment Next Appt Details Provider Name:Willy muir, 02/08/2025 03:15:00 PM, [address] [place] [address] Dr Serrano, [address], [place], [address], Progress Notes * Viki APARICIOOB: 2 (84 yo F)Acc No.[id number]:08/03/2024 Patient: Kathy GUILLEN Provider: Wilfredo Schwarz DPM :1940 A ge:84 Y S ex:Female Date:08/03/2024 Phone: Address:[address] [place] [address] Pcp:Dmitriy Presley DO Subjective: * Chief Complaints: * 1 . Rfc. * Medical History: Objective: * Vitals: Assessment: Plan: * Treatment: * Images: * Electronic signature of [place] in [place]OL[place] Schwarz on 12/20/2024 at 11:20 AM EDT Sign off status: Pending * Provider: Wilfredo Schwarz DPM Date: 0 08/03/2024 Generated for Birgit sultana/Zena/eTransmitting on: 0 12/20/2024 11:20 AM EDT
--- OUTSIDE RECORDS SUMMARY | 2024-11-30 04:45 | XMS_ITS ---
Author Organization The [facility] in [place] Address [address] [place] [address] Care Team Providers Care Veterinary Medicine Teacher Name Role Phone Dmitriy Presley DO Primary Care Provider Unavailab Carolin Mc Unavailable [phone] REASON FOR VISIT New PT Onc Encounters Encounter Location Date Provider Diagnosis [facility] [address] [place] [address] 11/30/2024 Carolin Silva Plan Of Treatment Next Appt Details Provider Name:Carolin Silva , 02/22/2025 01:15:00 PM, [address] [place], [address], Progress Notes * Viki WASHBURNOB: 2 (84 yo F)Acc No.[id number]:11/30/2024 UNLOCKED PROGRESS NOTE Progress Notes Patient: Kathy GUILLEN Provider: Rolo Silva M.D. :1940 A ge:84 Y S ex:Female Date:11/30/2024 Address:[address] [place], [place] [address], [id number] Pcp:Dmitriy Presley DO Subjective: * Chief Complaints: * 1 . New PT Onc. * Medical History: Objective: * Vitals: Assessment: Plan: * Treatment: * * Electronic signature of Reina Silva MD, [id number] on 12/20/2024 at 11:20 AM EDT Sign off status: Pending Visit Status: P EN (Pending) * Provider: Rolo Silva M.D. Date: 0 11/30/2024 Generated for Birgit sultana/Zena/Isha on: 0 12/20/2024 11:20 AM EDT
--- OUTSIDE RECORDS SUMMARY | 2024-12-17 10:20 | XMS_ITS | Encounter Summary ---
Author Organization [facility] Address [address] [place] [address] Care Team Providers Care Health Care Assistant Name Role Phone Dmitriy Presley DO Primary Care Provider Dmitriy Presley DO Unavailable [phone] Dmitriy Presley DO Unavailable [phone] Source Comments In the event this information is protected by the Federal Confidentiality of Alcohol and Drug AbusePatient Records regulations: The Federal rules restrict any use of the information to criminally investigate or prosecute any alcohol or drug abuse patient.[facility] Reason for Visit * Reason Comments Osteoarthritis Encounter Details Date Type Department Care Team (Late st Contact Info) Description 12/17/2024 10:20 AM EDT Office Visit Rheumatology [address] [place], [place] [id number] [place] [address] [place] [address] Fibromyalgia (Primary Dx); Primary osteoarthritis [...] is lower risk 4 02/07/2023 Data from: https://www.neighborhoodatlas.[facility]/. 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 There have not been any new health [...] Reviewed on 05/26/2024 Name Date COVID-19 vaccine ([employer]) 03/19/2024, 06/23/2023 COVID-19 vaccine, bivalent ([employer]) 04/18/2022 COVID-19 vaccine, monovalent ([employer]) 06/01/2021, 09/01/2020, 08/11/2020 Physical Exam GENERAL APPEARANCE: [...] which included preparing to see the patient, [id number] patient care, completing clinical documentation, obtaining and/or [...] 12/19/2025 11:00 AM EDT Office Visit Rheumatology [address] [place] [address] [place] [address] [place] [address] Return in about 1 year (around 12/17/2025). documented as of this encounter Visit Diagnoses Diagnosis Fibromyalgia- Primary Mylagia and myositis, unspecified Primary osteoarthritis involving multiple joints Type 2 diabetes mellitus without complication, with long-term current use of insulin (HCC) Long-term use of Plaquenil Encounter for long-term (current) use of other medications documented in this encounter Care Teams Health Care Assistant Relationship Specialty Start Date End Date Dmitriy Presley DO [address] [place] [address] PCP - General Family Medicine 08/01/11 Dmitriy Presley DO [address] [place] [address] Referring Family Medicine 10/04/20 Dmitriy Presley DO [address] [place] [address] Referring Family Medicine 01/09/21 documented as of this encounter
--- OUTSIDE RECORDS SUMMARY | 2024-12-20 11:20 | XMS_ITS | Patient Health Record ---
Author Organization [facility] [place] Address [address] [place] [address] Care Team Providers Care Computer Systems Technician Name Role Phone Dmitriy Presley DO Primary Care Provider Unavailab Carolin Mc Unavailable [phone] Reason For Referral No Information Encounters Encounter Location Date Provider Diagnosis [facility] Oncology [address] [place] [address] 11/30/2024 Carolin Silva Plan Of Treatment Next Appt Details Provider Name:Carolin Silva , 02/22/2025 01:15:00 PM, [address] [place], [address], Insurance Providers Payer Name Payer Address Payer Phone Subscriber Number Group Number Insured Name Patient Relationship to Insured Coverage Start Date Coverage End Date [place]IC[place] [address] [place] [address] [id number] Kathy Washburn Self - patient is the insured 7 [facility] [address] [place] [address] [id number] Kathy Washburn Self - patient is the insured 7
--- OUTSIDE RECORDS SUMMARY | 2024-12-20 11:20 | XMS_ITS | Clinical Summary ---
Author Organization [facility] Address [address] [place] [address] Care Team Providers Care Scallop Shucker Name Role Phone Dmitriy Presley MD Primary Care Provider [phone] Maco Guillaume DO Unavailable [phone] Allergies Active Allergy Reactions Criticality Noted Date Comments Cefpodoxime Other 02/16/2019 Other Reaction(s): Eye swelling Cephalosporins Unknown 12/06/2022 Medications hydroxychloroq uine (Plaquenil) 200 MG tablet take 1 tablet (200MG) by ORAL route 2 times every day Oral Active insulin glargine (Lantus) 100 UNIT/ML injection Subcutaneous Active ketoconazole (NIZOral) 2 % cream 1 application to affected area on the feet topically two times daily for 30 day(s) Active mirabegron ER (Myrbetriq) 25 MG 24 hr tablet 1 (one) time each day at the same time. Active Lantus SoloStar 100 UNIT/ML pen INJECT 46 UNITS SUBCUTANEOUSLY AT BEDTIME 3 Active OYSCO 500 + D 500-5 MG-MCG tablet Take 1 tablet by mouth in the morning. 2 Active ezetimibe (Zetia) 10 MG tablet Take 10 mg by mouth in the morning. Active pregabalin (Lyrica) 225 MG capsule Take 225 mg by mouth in the morning and 225 mg before bedtime. 3 Active citalopram (CeleXA) 40 MG tablet Take 40 mg by mouth in the morning. Active Multiple Vitamin (Tab-A-Sivan) tablet Take 1 tablet by mouth in the morning. 2 Active metFORMIN (Glucophage) 1000 MG tablet Take 1,000 mg by mouth in the morning and 1,000 mg in the evening. Take with meals. Active furosemide (Lasix) 20 MG tablet Take 20 mg by mouth in the morning and 20 mg before bedtime. Active lisinopril 10 MG tablet Take 10 mg by mouth in the morning. Active mirabegron ER (Myrbetriq) 25 MG 24 hr tablet 1 (one) time each day at the same time Active atorvastatin (Lipitor) 20 MG tablet Take 20 mg by mouth in the morning. Active oxyCODONE-acet aminophen (Percocet) 5-325 MG tablet TAKE 1 TABLET BY MOUTH ONCE DAILY - TWICE DAILY NEEDED Active propranolol LA (Inderal LA) 60 MG 24 hr capsule Take 60 mg by mouth in the morning. 3 Active venlafaxine XR (Effexor XR) 75 MG 24 hr capsule TAKE 1 CAPSULE BY MOUTH EVERY DAY WITH FOOD 4 Active zolpidem (Ambien) 5 MG tablet Take 5 mg by mouth at bedtime Active cholecalcifero l (Vitamin D-3) 125 MCG (5000 UT) capsule 5,000 Units 4 Active oxybutynin (Ditropan) 5 MG tablet See Instructions, can take 1 tab po up to TID PRN incontinence, # 90 tab(s), Refills(s) 3, Pharmacy: [id number], 178, cm, 02/11/23 11:43:00 EDT, Height/Length Dosing, 106.9, kg, 02/11/23 11:43:00 EDT, Weight Dosing 3 Active levothyroxine (Synthroid, Levoxyl) 100 MCG tablet TAKE 1 TABLET BY MOUTH IN THE MORNING ON AN EMPTY STOMACH. Do not eat or drink for 30-45 MINUTES after taking 4 Active triamterene-hy drochlorothiaz shagufta (Maxzide-25) 37.5-25 MG tablet TAKE 1/2 (ONE-HALF) OF A TABLET BY MOUTH DAILY 4 Active ciprofloxacin (Cipro) 500 MG tablet Take 500 mg by mouth in the morning and 500 mg before bedtime. Active trospium (Sanctura) 20 MG tablet Take 20 mg by mouth in the morning and 20 mg before bedtime. 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 Other hammer toe(s) (acquired), left foot 2022 Other hammer toe(s) (acquired), right foot 12/06 Overactive bladder 12/06/2022 Type 2 diabetes mellitus with peripheral neuropa thy 12/06/2022 Unsteadiness on feet 12/06/2022 Vaginal atrophy 12/06/2022 Rheumatoid arthritis 06/04/2011 Benign essential hypertension 07/14/2009 Disorder associated with type 2 diabetes mellitu s 07/14/2009 Immunizations Immunization Administration Dates Next Due Influenza, High-dose Seasona l, Quadrivalent, Preservative Free 04/04/2021 Family History Medical History Relation Name Comments No Known Problems Brother Alzheimer's disease Father Migrated family history Heart disease Father Cancer Mother Accidental Sister MVA Breast cancer Neg Hx Colon cancer Neg Hx Ovarian cancer Neg Hx Pancreatic cancer Neg Hx Relation Name Status Comments Brother Father Mother Other Spouse Sister Social History Tobacco Use Types Packs/Day Years Used Date Smoking Tobacco: Never Tobacco Cessation:Counseling Given: Not Answered Alcohol Use Standard Drinks/Week Comments Yes 0 (1 standard drink = 0.6 oz pure alcohol) Alcohol: 1-2 drinks occasionally. Caffeine: 3-4 cups/day coffee Comments Unknown Sex and Gender Information Value Date Recorded Sex Assigned at Not on file Legal Sex Female 7:08 PM EDT Gender Identity Not on file Sexual Orientation Not on file Last Filed Vital Signs Vital Sign Reading Time Taken Comments Blood Pressure 125/87 08/09/2024 2:16 PM EST Pulse 64 08/09/2024 2:16 PM EST Temperature - - Respiratory Rate - - Oxygen Saturation 90% 06/17/2024 1:58 PM EST Inhaled Oxygen Concentration - - Weight 101 kg (223 lb) 08/09/2024 2:16 PM EST Height 175.3 cm (5' 9 ) 06/23/2024 2:34 PM EST Body Mass Index 32.93 06/23/2024 2:34 PM EST Plan of Treatment Health Maintenance Due Date Last Done Comments Pneumococcal Vaccine: 65+ Years Completed 06/23/2023, 04/22/2022, 07/14/2019, Additional history exists Influenza Vaccine Completed 03/19/2024, , 04/25/2021, Additional history exists Insurance MEDICARE [facility] Care Teams Scallop Shucker Relationship Specialty Start Date End Date Dmitriy Presley MD [address] [place] [address] [place] [address] PCP - General Family Medicine 12/10/22 Maco Guillaume DO [address] [place] [address] [place] [id number] Referring Physician Neurology 08/09/24
--- OUTSIDE RECORDS SUMMARY | 2024-12-20 11:20 | XMS_ITS | Encounter Summary ---
Author Organization [facility] Address [facility] [place] [address] Care Team Providers Care Chili Maker Name Role Phone Dmitriy Presley DO Primary Care Provider [phone] Dmitriy Presley DO Unavailable [phone] Dmitriy Presley DO Unavailable [phone] Source Comments In the event this information is protected by the Federal Confidentiality of Alcohol and Drug AbusePatient Records regulations: The Federal rules restrict any use of the information to criminally investigate or prosecute any alcohol or drug abuse patient.[facility] Encounter Details Date Type Department Care Team (Late st Contact Info) Description 05/10/2024 Patient [facility] -3 [address] [place] [address] Leona Romero RPh At your next appointment, choose [facility]. Social History Tobacco Use Types Packs/Day Years Used Date Smoking Tobacco: Former Cigarettes 1.5 20 0 07/14/1979 - 07/14/1999 Smokeless Tobacco: Never Alcohol Use Standard Drinks/Week Comments Not Currently 0 (1 standard drink = 0.6 oz pur e alcohol) PHQ-2 Answer Date Recorded PHQ-2 score 0 07/19/2022 Area Deprivation Index Answer Date Pelon rded National Score (1-100), lower number is lower ri sk 61 02/07/2023 State Score (1-10), lower number is lower risk 4 02/07/2023 Data from: https://www.neighborhoodatlas.medicine.[facility].edu/. Last address used for calculation [address] 02/07/2023 Comments No Sex and Gender Information Value Date Recorded Sex Assigned at Female 03/26/2021 3:09 PM EDT Legal Sex Female 8:47 AM EST Gender Identity Not on file Sexual Orientation Not on file documented as of this encounter Plan of Treatment Upcoming Encounters Date Type Department Care Team (Late st Contact Info) Description 12/19/2025 11:00 AM EDT Office Visit Rheumatology [address] [place] [address] [place] [address] [facility] [place] [address] Return in about 1 year (around 12/17/2025). documented as of this encounter Visit Diagnoses Not on filedocumented in this encounter Care Teams Chili Maker Relationship Specialty Start Date End Date Dmitriy Presley DO [address] [place] [address] PCP - General Family Medicine 08/01/11 Dmitriy Presley DO [address] [place] [address] Referring Family Medicine 10/04/20 Dmitriy Presley DO [address] [place] [address] Referring Family Medicine 01/09/21 documented as of this encounter
--- OUTSIDE RECORDS SUMMARY | 2024-12-20 11:20 | XMS_ITS | Encounter Summary ---
Author Organization [facility] Address [address] [address] Care Team Providers Care Wagon Driver Salesperson Name Role Phone Dmitriy Presley MD Primary Care Provider [phone] Maco Guillaume DO Unavailable [phone] Encounter Details Date Type Department Care Team (Late st Contact Info) Description 12/07/2022 Abstract [facility] [address] [facility] [address] [place] [address] Butch Smith DPM [address] [facility] [address] [place] [address] Social History Tobacco Use Types Packs/Day Years [...] as of this encounter Plan of Treatment Not on file documented as of this encounter Visit Diagnoses Not on filedocumented in this encounter Care Teams Wagon Driver Salesperson Relationship Specialty Start Date End Date Dmitriy Presley MD [address] [place] [address] PCP - General Family Medicine 12/10/22 Maco Guillaume DO [address] [place] [address] Referring Physician Neurology 08/09/24 documented as of this encounter
--- OUTSIDE RECORDS SUMMARY | 2024-12-20 11:20 | XMS_ITS | Clinical Summary ---
Author Organization [facility] Address [address] [place] [address] Phone Care Team Providers Care Nuclear Weapons Mechanical Specialist Name Role Phone Dmitriy Presley DO Primary Care Provider [phone] Social History Tobacco Use Types Packs/Day Years Used Date Smoking Tobacco: Never Assessed Comments Unknown Sex and Gender Information Value Date Recorded Sex Assigned at Not on file Legal Sex Female 3:02 PM EST Gender Identity Not on file Sexual Orientation Not on file Plan of Treatment Health Maintenance Due Date Last Done Comments Bone Density Scan 1942 Lipid Panel 1942 Yearly Adult Physical 1942 DTaP/Tdap/Td Vaccines (1 - Tdap) 1964 Zoster Vaccines (1 of 2) 1992 RSV High Risk: (Elderly (60+ ) or Population) (1 - 1-dose 75+ series) 2017 Pneumococcal Vaccine (2 of 2 - PCV) 04/22/2023 04/22/2022, 04/03/2019 COVID-19 Vaccine ( - 2023-2 5 season) 2024 Influenza Vaccine (Season Ended) 2025 04/18/2022, 04/04/2021, 03/27/2020 HIB Vaccines Aged Out No longer eligi ble based on patient's age to complete this topic HPV Vaccines Aged Out No longer eligi ble based on patient's age to complete this topic Hepatitis A Vaccines Aged Out No long er eligible based on patient's age to complete this topic Hepatitis B Vaccines Aged Out No long er eligible based on patient's age to complete this topic IPV Vaccines Aged Out No longer eligi ble based on patient's age to complete this topic Meningococcal Vaccine Aged Out No cynthia adrianna eligible based on patient's age to complete this topic Rotavirus Vaccines Aged Out No longer eligible based on patient's age to complete this topic Care Teams Nuclear Weapons Mechanical Specialist Relationship Specialty Start Date End Date Dmitriy Presley DO PCP - General 05/13/18
--- OUTSIDE RECORDS SUMMARY | 2024-12-20 11:20 | XMS_ITS | Encounter Summary ---
Author Organization [facility] Address [facility] [place] [address] Care Team Providers Care Tile Molder Name Role Phone Dmitriy Presley DO Primary Care Provider [phone] Dmitriy Presley DO Unavailable [phone] Dmitriy Presley DO Unavailable [phone] Source Comments In the event this information is protected by the Federal Confidentiality of Alcohol and Drug AbusePatient Records regulations: The Federal rules restrict any use of the information to criminally investigate or prosecute any alcohol or drug abuse patient.[facility] Encounter Details Date Type Department Care Team (Late st Contact Info) Description 11/11/2024 Patient [facility] -[address] [place] [address] Leona Romero RPh At your next appointment, choose [facility]. Social History Tobacco Use Types Packs/Day [...] is lower risk 4 02/07/2023 Data from: https://www.neighborhoodatlas.medicine.[facility].edu/. Last address used for calculation [address] [...] 12/19/2025 11:00 AM EDT Office Visit Rheumatology [address] [place] [address] [place] [address] [facility] [place] [address] Return in about 1 year (around 12/17/2025). documented as of this encounter Visit Diagnoses Not on filedocumented in this encounter Care Teams Tile Molder Relationship Specialty Start Date End Date Dmitriy Presley DO [address] [place] [address] PCP - General Family Medicine 08/01/11 Dmitriy Presley DO [address] [place] [address] Referring Family Medicine 10/04/20 Dmitriy Prseley DO [address] [place] [address] Referring Family Medicine 01/09/21 documented as of this encounter
--- OUTSIDE RECORDS SUMMARY | 2024-12-20 11:20 | XMS_ITS | Clinical Summary ---
Author Organization [facility] Address [address] [place] [address] Care Team Providers Care Lead Refiner Name Role Phone Dmitriy Presley DO Primary Care Provider Unavail able Allergies Active Allergy Reactions Criticality Noted Date Comments Cephalosporins 02/16/2019 Cefpodoxime 02/16/2019 Medications methylPREDNISol one (MEDROL) 4 MG tablet Take 2 mg by mouth daily Active hydroxychloroqu ine (PLAQUENIL) 200 MG tablet Take by mouth daily Active oxyCODONE-aceta minophen (PERCOCET) 5-325 MG per tablet Take 1 tablet by mouth every 6 hours as needed for Pain. Active pregabalin (LYRICA) 25 MG capsule Take 125 mg by mouth 2 times daily. Active triamterene-hyd rochlorothiazid e (MAXZIDE-25) 37.5-25 MG per tablet Take 1 tablet by mouth daily Active ezetimibe (ZETIA) 10 MG tablet Take 10 mg by mouth daily Active lisinopril (PRINIVIL;ZESTR IL) 10 MG tablet Take 10 mg by mouth daily Active propranolol (INDERAL) 60 MG tablet Take 60 mg by mouth daily Active levothyroxine (SYNTHROID) 75 MCG tablet Take 75 mcg by mouth Daily Active atorvastatin (LIPITOR) 20 MG tablet Take 20 mg by mouth daily Active metFORMIN (GLUCOPHAGE) 1000 MG tablet Take 1,000 mg by mouth 2 times daily (with meals) Active furosemide (LASIX) 20 MG tablet Take 20 mg by mouth 2 times daily Active aspirin 81 MG tablet Take 81 mg by mouth daily Active citalopram (CELEXA) 40 MG tablet Take 40 mg by mouth daily Active insulin glargine (LANTUS) 100 UNIT/ML injection vial Inject into the skin nightly Active zolpidem (AMBIEN) 5 MG tablet Take 5 mg by mouth nightly as needed for Sleep. Active diclofenac (VOLTAREN) 50 MG EC tablet Take 1 tablet by mouth 2 times daily 60 tablet 03/24/2020 Active Family History Medical History Relation Name Comments Coronary Art Dis Father Heart Disease Father High Blood Pressure Father Cancer Mother Relation Name Status Comments Father Mother Social History Tobacco Use Types Packs/Day Years Used Date Smoking Tobacco: Never Assessed Smokeless Tobacco: Never Comments Unknown Sex and Gender Information Value Date Recorded Sex Assigned at Not on file Legal Sex Female 4:04 AM EST Gender Identity Not on file Sexual Orientation Not on file Last Filed Vital Signs Vital Sign Reading Time Taken Comments Blood Pressure - - Pulse - - Temperature 36 C (96.8 F) 06/18/2019 10:09 AM EST Respiratory Rate - - Oxygen Saturation - - Inhaled Oxygen Concentration - - Weight 106.6 kg (235 lb) 06/18/2019 10:09 AM EST Height 177.8 cm (5' 10 ) 06/18/2019 10:09 AM EST Body Mass Index 33.72 06/18/2019 10:09 AM EST Plan of Treatment Not on file Insurance MEDICARE [employer] MEDICARE SUPP Care Teams Lead Refiner Relationship Specialty Start Date End Date Dmitriy Presley DO PCP - General Family Medicine 02/05/19
--- OUTSIDE RECORDS SUMMARY | 2024-12-20 11:20 | XMS_ITS | Encounter Summary ---
Author Organization [facility] Address [address] [place] [address] Care Team Providers Care Preassembler Printed Circuit Board Name Role Phone Dmitriy Presley DO Primary Care Provider [phone] Dmitriy Presley DO Unavailable [phone] Dmitriy Presley DO Unavailable [phone] Source Comments In the event this information is protected by the Federal Confidentiality of Alcohol and Drug AbusePatient Records regulations: The Federal rules restrict any use of the information to criminally investigate or prosecute any alcohol or drug abuse patient.[facility] Encounter Details Date Type Department Care Team (Late st Contact Info) Description 04/03/2022 Abstract Hematology/Oncology [address] [place] [address] Santos Lares MD [address] [facility] [place] [address] Social History Tobacco Use Types Packs/Day Years Used Date Smoking Tobacco: Former Cigarettes Q uit: 07/14/1999 Smokeless Tobacco: Never Alcohol Use Standard Drinks/Week Comments Not Currently 0 (1 standard drink = 0.6 oz pur e alcohol) Area Deprivation Index Answer Date Pelon rded National Score (1-100), lower number is lower ri sk Not on file 03/12/2021 State Score (1-10), lower number is lower risk N ot on file 03/12/2021 Data from: https://www.neighborhoodatlas.medicine.[facility].edu/. Last address used for calculation Not on file 03/12/2021 Comments No Sex and Gender Information Value Date Recorded Sex Assigned at Female 03/26/2021 3:09 PM EDT Legal Sex Female 8:47 AM EST Gender Identity Not on file Sexual Orientation Not on file COVID-19 Exposure Response Date Recorded In the last 10 days, have yo u been in contact with someone who was confirmed or suspected to have Coronavirus/COVID-19? No / Unsure 04/04/2022 10:54 AM EDT documented as of this encounter Plan of Treatment Upcoming Encounters Date Type Department Care Team (Late st Contact Info) Description 12/19/2025 11:00 AM EDT Office Visit Rheumatology [address] [place] [address] [place] [address] [facility] [place] [address] Return in about 1 year (around 12/17/2025). documented as of this encounter Visit Diagnoses Not on filedocumented in this encounter Care Teams Preassembler Printed Circuit Board Relationship Specialty Start Date End Date Dmitriy Presley DO [address] [place] [address] PCP - General Family Medicine 08/01/11 Dmitriy Presley DO [address] [place] [address] Referring Family Medicine 10/04/20 Dmitriy Presley DO [address] [place] [address] Referring Family Medicine 01/09/21 documented as of this encounter
--- OUTSIDE RECORDS SUMMARY | 2024-12-20 11:20 | XMS_ITS | Encounter Summary ---
Author Organization [facility] Address [address] [place] [address] Care Team Providers Care Water Main Inspector Name Role Phone Dmitriy Presley DO Primary Care Provider [phone] Dmitriy Presley DO Unavailable [phone] Dmitriy Presley DO Unavailable [phone] Source Comments In the event this information is protected by the Federal Confidentiality of Alcohol and Drug AbusePatient Records regulations: The Federal rules restrict any use of the information to criminally investigate or prosecute any alcohol or drug abuse patient.[facility] Encounter Details Date Type Department Care Team (Latest Contact Info) Description 04/03/2022 H&P External-NonCCF Provider, External, RK Do not enter address information under generic External Provider. Social History Tobacco Use Types Packs/Day Years [...] N ot on file 03/12/2021 Data from: https://www.neighborhoodatlas.medicine.[facility]/. Last address used for calculation Not on [...] 12/19/2025 11:00 AM EDT Office Visit Rheumatology [address] [place] [address] [place] [address] [facility] [place] [address] Return in about 1 year (around 12/17/2025). documented as of this encounter Visit Diagnoses Not on filedocumented in this encounter Care Teams Water Main Inspector Relationship Specialty Start Date End Date Dmitriy Presley DO [address] [place] [address] PCP - General Family Medicine 08/01/11 Dmitriy Presley DO [address] [place] [address] Referring Family Medicine 10/04/20 Dmitriy Presley DO [address] [place] [address] Referring Family Medicine 01/09/21 documented as of this encounter
--- OUTSIDE RECORDS SUMMARY | 2024-12-20 11:20 | XMS_ITS | Clinical Summary ---
Author Organization [facility] Address [address] [place] [address] Care Team Providers Care Stores Clerk Name Role Phone Dmitriy Presley DO Primary Care Provider [phone] Dmitriy Presley DO Unavailable [phone] Dmitriy Presley DO Unavailable [phone] Allergies Active Allergy Reactions Criticality Noted Date Comments Cephalosporins Hives,Swelling 02/20/2004 Cefpodoxime Unknown 04/03/2022 Medications LASIX 20MG TABLETIndications: Other specified idiopathic peripheral neuropathy Take one(1) tablet daily. 0 02/20/20 04 Active INDERAL LA 60MG CAPSULE SAIndications:Othe r specified idiopathic peripheral neuropathy Take one(1) tablet daily. 0 02/20/20 04 Active ZETIA 10MG TABLETIndications: Other specified idiopathic peripheral neuropathy Take one(1) tablet daily. 0 02/20/20 04 Active atorvastatin (LIPITOR) 20 mg tabletIndications: Other specified idiopathic peripheral neuropathy Take 20 mg by mouth. 0 02/20/20 04 Active ZESTRIL 20MG TABLETIndications: Other specified idiopathic peripheral neuropathy Take 10 mg by mouth once daily. 0 02/20/20 04 Active ASPIRIN 81MG TABLETIndications: Other specified idiopathic peripheral neuropathy Take one (1) tablet daily . 0 02/20/20 04 Active CENTRUM SILVER TABLETIndications: Other specified idiopathic peripheral neuropathy Take one(1) tablet daily. 0 02/20/20 04 Active LYRICA 225 mg ORAL capsule Take 225 mg by mouth twice daily. 03/12/20 21 Active OXYCODONE-ACETAMIN OPHEN 5-325 mg ORAL tablet as needed. 07/19/19 12 Active METFORMIN 1,000 mg ORAL tablet Take 1,000 mg by mouth twice daily with meals. 03/12/20 21 Active LEVOTHYROXINE 88 mcg ORAL tablet 06/10/20 11 Active insulin glargine (LANTUS) 100 unit/mL injection Inject subcutaneou sly. 21 units Active venlafaxine ER (EFFEXOR XR) 75 mg 24 hr capsule Take 75 mg by mouth once daily. 02/07/20 22 Active hydrOXYchloroQUINE (PLAQUENIL) 200 mg tabletIndications: Primary osteoarthritis involving multiple joints Take 2 tablets by mouth once daily. 180 tablet 3 12/18/19 25 026 Active hydrOXYchloroQUINE (PLAQUENIL) 200 mg tabletIndications: Primary osteoarthritis involving multiple joints Take 2 tablets by mouth once daily. 180 tablet 3 05/17/20 24 025 Discontinued Active Problems Problem Noted Date Diagnosed Date Knee pain 07/24/2011 Encounters Date Type Department Care Team Description 12/17/2024 10:20 AM EDT Office Visit Rheumatology [address] [place] [address] Bertrand Morrow MD Fibromyalgia (Primary Dx); Primary osteoarthritis involving multiple joints; Type 2 diabetes mellitus without complication, with long-term current use of insulin (HCC); Long-term use of Plaquenil 11/17/2024 Telephone Cancer Appts [address] [place] [address] Chad Freitas MD Records faxed 11/11/2024 Patient [facility] -[address] [place] [address] Leona Romero barron At your next appointment, choose [facility]. from Last 3 Months Family History Medical History Relation Comments Heart disease Father Hypertension Father Migraines Maternal Grandmother Cancer Mother Heart disease Paternal Grandfather Heart disease Paternal Grandmother Relation Status Comments Brother Alive Father Maternal Grandmother Mother Paternal Grandfather Paternal Grandmother Sister Social History Tobacco Use Types Packs/Day [...] is lower risk 4 02/07/2023 Data from: https://www.neighborhoodatlas.[facility].edu/. Last address used for calculation [address] [facility] 02/07/2023 Comments No Sex and Gender Information Value Date Recorded Sex Assigned at Female 03/26/2021 3:09 PM EDT Legal Sex Female 8:47 AM EST Gender Identity Not on file Sexual Orientation Not on file Last Filed Vital Signs Vital Sign Reading Time Taken Comments Blood Pressure 112/71 12/17/2024 10:27 AM EDT Pulse 70 05/26/2024 1:54 PM EST Temperature 18.3 C (65 F) 12/17/2024 10:27 AM EDT Respiratory Rate 16 05/26/2024 1:54 PM EST Oxygen Saturation 91% 05/26/2024 1:54 PM EST Inhaled Oxygen Concentration - - Weight 103.6 kg (228 lb 6.3 oz) 025 10:27 AM EDT Height 172.7 cm (5' 7.99 ) 12/17/2024 1 0:27 AM EDT Body Mass Index 34.74 12/17/2024 10:27 AM EDT Plan of Treatment Upcoming Encounters Date Type Department Care Team (Late st Contact Info) Description 12/19/2025 11:00 AM EDT Office Visit Rheumatology [address] [place] [address] [place] [address] [facility] [place] [address] Return in about 1 year (around 12/17/2025). Health Maintenance Due Date Last Done Comments HbA1C 1947 Diabetic Foot Exam 1952 Dilated Retinal Exam 1952 Urine Albumin:Creatinine Ratio 1952 Anxiety Screening 1960 Depression Screening 1960 LDL Cholesterol 1960 Bone Density Screening 2007 Shingrix Vaccine (2 of 2) 08/18/2023 06/23/2023 Advance Directive Discussion 07/14/2024 Covid-19 Vaccine (2023-2 5 season) 2024 03/19/2024, 06/23/2023, 04/18/2022, Additional history exists DTaP,Tdap,Td Vaccine (2 - Td or Tdap) 01/14/2032 01/13/2022 Pneumococcal Vaccine: 50+ Completed 2022, 04/22/2022, 07/14/2019, Additional history exists RSV Vaccine Completed 06/23/2023 Influenza Vaccine Completed 03/19/2024, , 04/25/2021, Additional history exists Insurance [facility] MEDICARE Care Teams Stores Clerk Relationship Specialty Start Date End Date Dmitriy Presley DO [address] [place] [address] PCP - General Family Medicine 08/01/11 Dmitriy Presley DO [address] [place] [address] Referring Family Medicine 10/04/20 Dmitriy Presley, [address] [place] [address] Referring Family Medicine 01/09/21
[2024-12-20 11:28] VITALS: BP 109/68; PULSE 72; TEMP 36.3; O2SAT 93
[2024-12-20 11:35] LABS: Glucometer 100 mg/dL (74-106)
[2024-12-20 12:00] VITALS: BP 108/59; BP 115/58; PULSE 70; PULSE 73; O2SAT 93; O2SAT 94
[2024-12-20] MEDS: BUPIVACAINE HCL 0.25% PF 25 MG/10 ML VIAL 8 ML INJ (12:01)
[2024-12-20] MEDS: LIDOCAINE HCL 2% 400 MG/20 ML MDV INJ (12:01)
--- NOTE | 2024-12-20 12:09 | W.PM.PROCNOT ---
Date of procedure: 12/20/24 Pre-op diagnosis: Pain due to lumbar spondylosis without myelopathy Post-op diagnosis: same as pre-op Procedure: Procedure: Bilateral L3-4, L5-S1 medial branch block Medications: Bupivacaine 0.25% 8cc The patient was seen and examined in the preoperative holding area.? An informed consent was obtained and placed on the chart.? The patient was brought to the medical procedure unit and placed in the prone position.? A timeout was completed verifying correct patient, procedure site, positioning, plan, and special equipment.? Using aseptic technique, the needle was placed at left L3. Under direct fluoroscopic visualization a Quincke-tipped spinal needle was advanced to the junction of the superior articulating process with the transverse process at the designated medial branch segment.? Preceded by negative aspiration, the above-mentioned injectate was placed in 1 mL aliquots.? The procedure was repeated at left L4, L5, S1.? The needle was removed and insertion site was covered. The same procedure, at the same levels, was completed on the right side. The patient was taken to the postprocedural recovery area and monitored for an appropriate length of time before found suitable for discharge in the company of a responsible adult. Anesthesia: Local Surgeon: Som Azul Pathology: none sent Condition: stable Disposition: no change
== END 2024-12-20 12:10 | disposition home or self-care (01) ==
LOC: SURGOUT 11:18
PROVIDERS: PCP Family Medicine; Visit Provider Anesthesiology
DX: M54.50 Low back pain, unspecified (principal); M47.816 Spondylosis without myelopathy or radiculopathy, lumbar region; E11.8 Type 2 diabetes mellitus with unspecified complications; Z79.84 Long term (current) use of oral hypoglycemic drugs
CPT/HCPCS: 36415; 64493; 64494; 82948; J0665

== ENCOUNTER 2024-12-22 10:39 | Outpatient (OUT) | payer MEDICARE, SELFPAY ==
--- OUTSIDE RECORDS SUMMARY | 2024-08-03 09:30 | XMS_ITS ---
Author Organization [facility] Address [address] [place] [address] [place] [address] [place] [address] Care Team Providers Care Director Video Name Role Phone Dmitriy Presley DO Primary Care Provider Unavailab Willy Davis Unavailable [phone] REASON FOR VISIT rfc Encounters Encounter Location Date Provider Diagnosis [facility] [address] [place] [address] [place] [address] [place] [address] 08/03/2024 Willy Schwarz Plan Of Treatment Next Appt Details Provider Name:Willy muir, 02/08/2025 03:15:00 PM, [address] [place] [address] Dr Serrano, [address], [place], [address], Progress Notes * Viki WASHBURNOB: 2 (84 yo F)Acc No.[id number]:08/03/2024 Patient: Kathy GUILLEN Provider: Wilfredo Schwarz DPM :1940 A ge:84 Y S ex:Female Date:08/03/2024 Phone: Address:[address] [place] [address] Pcp:Dmitriy Presley DO Subjective: * Chief Complaints: * 1 . Rfc. * Medical History: Objective: * Vitals: Assessment: Plan: * Treatment: * Images: * Electronic signature of [place] in [place]OL[place] Schwarz on 12/22/2024 at 10:43 AM EDT Sign off status: Pending * Provider: Wilfredo Schwarz DPM Date: 0 08/03/2024 Generated for Birgit sultana/Zena/eTransmitting on: 0 12/22/2024 10:43 AM EDT
--- OUTSIDE RECORDS SUMMARY | 2024-12-17 10:20 | XMS_ITS | Encounter Summary ---
Author Organization [facility] Address [address] [place] [address] Care Team Providers Care Outside Cutter Hand Name Role Phone Dmitriy Presley DO Primary Care Provider [phone] Dmitriy Presley DO Unavailable [phone] Dmitriy Presley DO Unavailable [phone] Source Comments In the event this information is protected by the Federal Confidentiality of Alcohol and Drug AbusePatient Records regulations: The Federal rules restrict any use of the information to criminally investigate or prosecute any alcohol or drug abuse patient.[facility] Reason for Visit * Reason Comments Osteoarthritis Encounter Details Date Type Department Care Team (Late st Contact Info) Description 12/17/2024 10:20 AM EDT Office Visit Rheumatology [address] [place], [place] [id number] [place] [address] [address] Fibromyalgia (Primary Dx); Primary osteoarthritis involving multiple joints; Type 2 diabetes mellitus without complication, with long-term current use of insulin (HCC); Long-term use of Plaquenil Social History Tobacco Use Types Packs/Day Years Used Date Smoking Tobacco: Former Cigarettes 1.5 20 0 07/14/1979 - 07/14/1999 Smokeless Tobacco: Never Tobacco Cessation:Counseling Given: Not Answered Alcohol Use Standard Drinks/Week Comments Not Currently 0 (1 standard drink = 0.6 oz pur e alcohol) PHQ-2 Answer Date Recorded PHQ-2 score 0 07/19/2022 Area Deprivation Index Answer Date Pelon rded National Score (1-100), lower number is lower ri sk 61 02/07/2023 State Score (1-10), lower number is lower risk 4 02/07/2023 Data from: https://www.neighborhoodatlas.[facility]/. Last address used for calculation [address] 02/07/2023 Comments No Sex and Gender Information Value Date Recorded Sex Assigned at Female 03/26/2021 3:09 PM EDT Legal Sex Female 8:47 AM EST Gender Identity Not on file Sexual Orientation Not on file documented as of this encounter Last Filed Vital Signs Vital Sign Reading Time Taken Comments Blood Pressure 112/71 12/17/2024 10:27 AM EDT Pulse - - Temperature 18.3 C (65 F) 12/17/2024 10:27 AM EDT Respiratory Rate - - Oxygen Saturation - - Inhaled Oxygen Concentration - - Weight 103.6 kg (228 lb 6.3 oz) 025 10:27 AM EDT Height 172.7 cm (5' 7.99 ) 12/17/2024 1 0:27 AM EDT Body Mass Index 34.74 12/17/2024 10:27 AM EDT documented in this encounter Progress Notes * Bertrand Morrow MD - 12/17/2024 10:27 AM EDT Images from the original note were not included. Rheumatology Outpatient Clinic Date of Service: 12/17/2024 Patient: Kathy Washburn Medical Record: [id number] Primary Care Physician: Dmitriy Presley DO Last Rheumatology visit: 05/17/2024 (with Bertrand Morrow) History of Present Illness Kathy Washburn is a 84 year old White female who presents on 12/17/2024 for an in-person visit for evaluation of Osteoarthritis. She is currently taking hydroxychloroquine sulfate. HISTORY OF PRESENT ILLNESS Patient presents with [...] her general health has been relatively stable. INTERVAL HISTORY Patient returns for reevaluation and management of her osteoarthritis. Since last visit patient reinitiated hydroxychloroquine 400 mg daily off label for osteoarthritis. She is tolerating the hydroxychloroquine quite well without side effects. She is not as convinced that this has been as effectiveas it once was in the past. She still has to daily stiffness and achiness multiple joint areas. There is about one joint area that is worse than the other. She did inquire about other treatment options. 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 There have not been any new health issues otherwise that have arisen since last visit. Patient-Entered Data PAIN EVALUATION 12/17/2024 1023 Pain Level: 4 Pain Location: Generalized Description: Aching;Stiffness Duration Units: Years Frequency: Continuous Intervention/Comfort measure: Heat PROMIS Assessments 07/19/2022 04/18/2022 PROMIS Assessments Physical [...] Joint swelling and Morning Joint Stiffness NEUROLOGICAL: Negative for: Headaches, Numbness, Memory loss, SKIN: Negative for: Rashes, Sun sensitive rashes, [...] date: 07/14/1979 Quit date: 07/14/1999 Years since quittin.4 Smokeless tobacco: Never Vaping Use Vaping status: [...] found. Labs Latest Ref Rng & Units 05/26/2024 08/08/2023 02/07/2023 07/19/2022 CBC WBC 3.70 - 11.00 k/uL 19.22 19.43 18.65 16.68 Hemoglobin 11.5 - 15.5 g/dL 12.7 12.9 12.1 12.9 Hematocrit 36.0 - 46.0 % 38.4 40.8 37.0 40.0 Platelet Count 150 - 400 k/uL 244 276 240 262 Abs Neut (ANC) 1.45 - 7.50 k/uL 4.23 5.44 5.60 4.01 Abs Lymph 1.00 - 4.00 k/uL 14.61 13.41 12.31 11.45 Latest Ref Rng & Units 05/26/2024 08/08/2023 02/07/2023 07/19/2022 CMP Sodium 136 - 144 mmol/L 142 140 138 138 Potassium 3.7 - 5.1 mmol/L 5.3 4.9 4.4 5.0 Chloride 98 - 107 mmol/L 105 103 101 102 CO2 22 - 30 mmol/L 26 28 26 30 Glucose 74 - 99 mg/dL 231 207 117 129 BUN 7 - 21 mg/dL 36 46 35 23 Creatinine 0.58 - 0.96 mg/dL 1.20 1.33 1.16 0.86 Calcium 8.5 - 10.2 mg/dL 9.3 10.1 9.2 9.5 AST 13 - 35 U/L 23 29 21 22 ALT 7 - 38 U/L 21 30 21 20 Alkaline Phosphatase 34 - 123 U/L 107 121 119 115 Latest Ref Rng & [...] result) Health Maintenance Current Immunizations Reviewed on 05/26/2024 Name Date COVID-19 vaccine ([employer]) 03/19/2024, 06/23/2023 COVID-19 vaccine, bivalent ([employer]) 04/18/2022 COVID-19 vaccine, monovalent ([employer]) 06/01/2021, 09/01/2020, 08/11/2020 Physical Exam GENERAL APPEARANCE: Well groomed. Alert and oriented x 3. In no distress. VITAL SIGNS: BP 112/71 Temp 65 Ht 5' 7.99 (1.73m) Wt 228 lb 6.3 oz (103.6kg) BMI 34.74 kg/(m^2). SKIN: No rash, thickening, nodules, discoloration. [...] ROM. No tenderness to palpation. Joint Exam 12/17/2024 Right Left Glenohumeral Tender Tender Wrist Swollen Swollen CMC Tender Tender MCP 1 Tender Tender MCP 2 Tender Tender Knee Swollen Tender Swollen Tender The following joints were examined and normal: Left Sternoclavicular, Right Sternoclavicular, Left Acromioclavicular, Right Acromioclavicular, Left Elbow, Right Elbow, Left MCP 3, Right MCP 3, Left MCP 4, Right MCP 4, Left [...] MTP 5 Joint Exam Data (across time) 12/17/2024 05/17/2024 Joint Exam Total Tender 8 10 Total Swollen 4 0 Impression Diagnoses: (M79.7) Fibromyalgia (primary encounter diagnosis) (M15.0) Primary osteoarthritis involving multiple joints (E11.9, Z79.4) Type 2 diabetes mellitus without complication, with long-term current use of insulin(HCC) (Z79.899) Long-term use of Plaquenil Plan Orders this visit: Office Visit on 12/17/24 hydrOXYchloroQUINE (PLAQUENIL) 200 mg tablet Discussed current status of her osteoarthritis as active on hydroxychloroquine 400 mg daily. I do not have a safer more effective approach alternate perhaps sulfasalazine but there is the concern forits effects on her kidney status. After much discussion of now we decided to stay with the hydroxychloroquine and I dispensed 180 tabs and 3 additional refills. She understands need for an annual eyeexam we will continue to go forward with that. Return in about 1 year (around 12/17/2025). I spent a total of 30 minutes on the date of the service which included preparing to see the patient, [id number] patient care, completing clinical documentation, obtaining and/or reviewing separately obtained history, performing a medically appropriate examination, counseling and educating the pat ient/family/caregiver, and ordering medications, tests, or procedures. Medical Decision Making: Problems: Moderate: 1+ chronic illnesses with change Risk: High: High risk from testing/treatment Medical Decision Making Level: 4 - Moderate Bertrand Morrow MD Rheumatology Date: December 17, 2024 Time: 10:27 AM documented in this encounter Plan of Treatment Upcoming Encounters Date Type Department Care Team (Late st Contact Info) Description 12/19/2025 11:00 AM EDT Office Visit Rheumatology [address] [place] [address] [place] [address] [address] Return in about 1 year (around 12/17/2025). documented as of this encounter Visit Diagnoses Diagnosis Fibromyalgia- Primary Mylagia and myositis, unspecified Primary osteoarthritis involving multiple joints Type 2 diabetes mellitus without complication, with long-term current use of insulin (HCC) Long-term use of Plaquenil Encounter for long-term (current) use of other medications documented in this encounter Care Teams Outside Cutter Hand Relationship Specialty Start Date End Date Dmitriy Presley DO [address] [place] [address] PCP - General Family Medicine 08/01/11 Dmitriy Presley DO [address] [place] [address] Referring Family Medicine 10/04/20 Dmitriy Presley DO [address] [place] [address] Referring Family Medicine 01/09/21 documented as of this encounter
--- NOTE | 2024-12-22 10:42 | US_ITS ---
The [address] [address] Patient Name: MIGUEL A APARICIO MRN: [id number] date: 1940 Sex: F Assigned Patient Location: US Current Patient Location: US Accession/Order Number: [id number] Exam Date: 12/22/2024 11:40 Report Date: 12/22/2024 11:42 At the request of: BILL ZAYAS Procedure: US renal BI BILATERAL RENAL AND BLADDER ULTRASOUND CLINICAL HISTORY: Stage 3b Chronic Kidney Disease, Type 2 Diabetes. Frequent urination. COMPARISON: CT 03/15/2020 Estimation of renal size is approximately 11.0 cm on the right and 10.9 cm on the left. No shadowing calculi or hydronephrosis are identified. No renal mass lesions were imaged. There is no perinephric fluid. The urinary bladder is poorly distended with a volume of 28 mL. No obvious contour or intraluminal abnormalities are seen. US/US renal BI IMPRESSION: NO OBSTRUCTIVE UROPATHY. Impression dictated by: Vivienne Seth M.D. 12/22/2024 11:42 AM Dictation Location: [place] [address] Electronically authenticated by: [id number] Y Date: 12/22/2024 11:42
--- OUTSIDE RECORDS SUMMARY | 2024-12-22 10:43 | XMS_ITS | Encounter Summary ---
Author Organization [facility] Address [address] [place] [address] Care Team Providers Care Inspector Elevators Name Role Phone Dmitriy Presley DO Primary Care Provider [phone] Dmitriy Presley DO Unavailable [phone] Dmitriy Presley DO Unavailable [phone] Source Comments In the event this information is protected by the Federal Confidentiality of Alcohol and Drug AbusePatient Records regulations: The Federal rules restrict any use of the information to criminally investigate or prosecute any alcohol or drug abuse patient.[facility] Encounter Details Date Type Department Care Team (Late st Contact Info) Description 04/03/2022 Abstract Hematology/Oncology [address] [place] [address] Santos Lares MD [address] [facility] [place] [address] Social History Tobacco Use Types [...] N ot on file 03/12/2021 Data from: https://www.neighborhoodatlas.medicine.[facility].edu/. Last address used for calculation Not on [...] 12/19/2025 11:00 AM EDT Office Visit Rheumatology [address] [place] [address] [place] [address] [facility] [place] [address] Return in about 1 year (around 12/17/2025). documented as of this encounter Visit Diagnoses Not on filedocumented in this encounter Care Teams Inspector Elevators Relationship Specialty Start Date End Date Dmitriy Presley DO [address] [place] [address] PCP - General Family Medicine 08/01/11 Dmitriy Presley DO [address] [place] [address] Referring Family Medicine 10/04/20 Dmitriy Presley DO [address] [place] [address] Referring Family Medicine 01/09/21 documented as of this encounter
--- OUTSIDE RECORDS SUMMARY | 2024-12-22 10:43 | XMS_ITS | Encounter Summary ---
Author Organization [facility] Address [facility] [place] [address] Care Team Providers Care Sprayer Automatic Spray Machine Name Role Phone Dmitriy Presley DO Primary Care Provider [phone] Dmitriy Presley DO Unavailable [phone] Dmitriy Presley DO Unavailable [phone] Source Comments In the event this information is protected by the Federal Confidentiality of Alcohol and Drug AbusePatient Records regulations: The Federal rules restrict any use of the information to criminally investigate or prosecute any alcohol or drug abuse patient.[facility] Encounter Details Date Type Department Care Team (Late st Contact Info) Description 11/11/2024 Patient [facility] -3 [address] [place] [address] Leona Romero RPh At your next appointment, choose [facility]. Social History Tobacco Use Types Packs/Day [...] is lower risk 4 02/07/2023 Data from: https://www.neighborhoodatlas.medicine.[facility].edu/. Last address used for calculation [address] [...] 12/19/2025 11:00 AM EDT Office Visit Rheumatology [address] [place] [address] [place] [address] [place] [address] Return in about 1 year (around 12/17/2025). documented as of this encounter Visit Diagnoses Not on filedocumented in this encounter Care Teams Sprayer Automatic Spray Machine Relationship Specialty Start Date End Date Dmitriy Presley DO [address] [place] [address] PCP - General Family Medicine 08/01/11 Dmitriy Presley DO [address] [place] [address] Referring Family Medicine 10/04/20 Dmitriy Presley DO [address] [place] [address] Referring Family Medicine 01/09/21 documented as of this encounter
--- OUTSIDE RECORDS SUMMARY | 2024-12-22 10:43 | XMS_ITS | Encounter Summary ---
Author Organization [facility] Address [address] [place] [address] Care Team Providers Care Weighmaster Lead Name Role Phone Dmitriy Presley MD Primary Care Provider [phone] Maco Guillaume DO Unavailable [phone] Encounter Details Date Type Department Care Team (Late st Contact Info) Description 12/07/2022 Abstract [facility] [address] [facility] [address] [place] [id number] Butch Smith DPM [address] [place] [address] Social History Tobacco Use Types Packs/Day Years [...] Care Team (Late st Contact Info) Description 01/12/2025 1:30 PM EDT Office Visit [facility] [address] [facility] [address] [place] [id number] Keith Iglesias DO [address] [facility] [address] [place] [address] documented as of this encounter Visit Diagnoses Not on filedocumented in this encounter Care Teams Weighmaster Lead Relationship Specialty Start Date End Date Dmitriy Presley MD [address] [place] [address] [place] [address] PCP - General Family Medicine 12/10/22 Maco Guillaume DO [address] [place] [address] Referring Physician Neurology 08/09/24 documented as of this encounter
--- OUTSIDE RECORDS SUMMARY | 2024-12-22 10:43 | XMS_ITS | Clinical Summary ---
Author Organization [facility] Address [address] [place] [address] Care Team Providers Care Coreroom Foundry Laborer Name Role Phone Dmitriy Presley MD Primary Care Provider [phone] Maco Guillaume DO Unavailable Allergies Active Allergy Reactions Criticality Noted Date [...] incontinence, # 90 tab(s), Refills(s) 3, Pharmacy: [facility]72, 178, cm, 02/11/23 11:43:00 EDT, [...] 06/23/2024 2:34 PM EST Plan of Treatment Upcoming Encounters Date Type Department Care Team (Late st Contact Info) Description 01/12/2025 1:30 PM EDT Office Visit [facility] [address] [facility] [address] [place] [id number] Keith Iglesias DO [address] [facility] [address] [place] [address] Health Maintenance Due Date Last Done Comments Pneumococcal Vaccine: 65+ Years Completed 06/23/2023, 04/22/2022, 07/14/2019, Additional history exists Influenza Vaccine Completed 03/19/2024, , 04/25/2021, Additional history exists Insurance MEDICARE [facility] Care Teams Coreroom Foundry Laborer Relationship Specialty Start Date End Date Dmitriy Presley MD [address] [place], [place] [address] [address] PCP - General Family Medicine 12/10/22 Maco Guillaume DO [address] [place] [address] Referring Physician Neurology 08/09/24
--- OUTSIDE RECORDS SUMMARY | 2024-12-22 10:43 | XMS_ITS | Clinical Summary ---
Author Organization [facility] Address [address] [place] [address] Phone Care Team Providers Care Pipe Joints Supervisor Name Role Phone Dmitriy Presley DO Primary Care Provider [phone] Social History Tobacco Use Types Packs/Day Years [...] age to complete this topic Care Teams Pipe Joints Supervisor Relationship Specialty Start Date End Date Dmitriy Presley DO PCP - General 05/13/18
--- OUTSIDE RECORDS SUMMARY | 2024-12-22 10:43 | XMS_ITS | Encounter Summary ---
Author Organization [facility] Address [facility] [place] [address] Care Team Providers Care Firmware Manager Name Role Phone Dmitriy Presley DO Primary Care Provider [phone] Dmitriy Presley DO Unavailable [phone] Dmitriy Presley DO Unavailable [phone] Source Comments In the event this information is protected by the Federal Confidentiality of Alcohol and Drug AbusePatient Records regulations: The Federal rules restrict any use of the information to criminally investigate or prosecute any alcohol or drug abuse patient.[facility] Encounter Details Date Type Department Care Team (Late st Contact Info) Description 05/10/2024 Patient [facility] -3 [address] [place] [address] Leona Romero RPh At your next appointment, choose [facility]. Social History Tobacco Use Types Packs/Day [...] 12/19/2025 11:00 AM EDT Office Visit Rheumatology [address] [place] [address] [place] [address] [facility] [place] [address] Return in about 1 year (around 12/17/2025). documented as of this encounter Visit Diagnoses Not on filedocumented in this encounter Care Teams Firmware Manager Relationship Specialty Start Date End Date Dmitriy Presley DO [address] [place] [address] PCP - General Family Medicine 08/01/11 Dmitriy Presley DO [address] [place] [address] Referring Family Medicine 10/04/20 Dmitriy Presley DO [address] [place] [address] Referring Family Medicine 01/09/21 documented as of this encounter
--- OUTSIDE RECORDS SUMMARY | 2024-12-22 10:43 | XMS_ITS | Clinical Summary ---
Author Organization [facility] Address [address] [place] [address] Care Team Providers Care Fire Regulator Name Role Phone Dmitriy Presley DO Primary [...] [employer] HE[employer] CARE MEDICARE SUPP Care Teams Fire Regulator Relationship Specialty Start Date End Date Dmitriy Presley DO PCP - General Family Medicine 02/05/19
--- OUTSIDE RECORDS SUMMARY | 2024-12-22 10:43 | XMS_ITS | Patient Health Record ---
Author Organization [facility] Address [address] [place] [address] [place] [address] Care Team Providers Care Social Media Marketing Analyst Name Role Phone Dmitriy Presley DO Primary Care Provider Unavailab Willy Davis Unavailable [phone] Allergies Allergen (clinical drug ingredient) Drug/Non Drug Allergy documented on EMR Reaction Allergy Type Onset Date Status Medicinal cephalosporin and acting as antibacterial agent (FN) Cephalosporins Unknown Drug Allergy Active Results Component Value Reference Range Notes Hemoglobin A1c Reviewed date:05/03/2024 02:02:39 PM Interpretation: Performing Lab: Notes/Report: Hemoglobin A1c 7.3 Reason For Referral No Information Medications Medication SIG (Take, Route, Frequency, Duration) Notes Start Date End Date Status Propranolol HCl ER 60 MG 1 capsule Orall y Once a day Active Ezetimibe 10 MG 1 tablet Orally Once a day Active Levothyroxine Sodium 100 MCG 1 tablet in the morning on an empty stomach Orally Once a day Active metFORMIN HCl 1000 MG 1 tablet with a me al Orally twice a day Active Triamterene-HCTZ 37.5-25 MG 1 tablet in the morning Orally Once a day Active Lipitor 20 MG 1 tablet Orally Once a day Active Ambien 5 MG 1 tablet at bedtime as needed Orally Once a day Active Venlafaxine HCl 75 MG 1 tablet with food Orally Once a day Active Aspirin 81 MG 1 tablet Orally Once a day Active Lisinopril 10 MG 1 tablet Orally Once a day Active Lyrica 225 MG 1 capsule in the rishi josue 1 to 3 hours before bedtime Orally twice a day Active Social History Tobacco Use: Social History Observation Description Date Details (start date - stop date) Former Smoker NA - NA tobacco use Question Answer Notes Patient is a: former smoker quit 1998 Problems Problem Type SNOMED Code ICD Code Onset Dates Problem Status W/U Status Risk Notes Problem Chronic lymphoid leukemia, disease (24316755) 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) Active confirmed Problem Polyneuropathy due to type 2 diabetes mellitus (212934974) Type 2 diabetes mellitus with diabetic polyneuropathy (E11.42) Active confirmed Problem Type 2 diabetes mellitus with peripheral angiopathy (512637122) Type 2 diabetes mellitus with diabetic peripheral angiopathy without gangrene (E11.51) Active confirmed Problem Rheumatoid arthritis (08799936) Rheumatoid arthritis, unspecified (M06.9) Active confirmed Problem Tinea unguium (453640075) Tinea unguium (B35.1) Active confirmed Problem Immunodeficiency disorder (disorder) (254527676) 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) Active confirmed Vital Signs Blood pressure diastolic 84 mm Hg 11/09/2024 Height 69 in 11/09/2024 Blood pressure systolic 132 mm Hg 11/09/2024 Weight 228 lbs 11/09/2024 BMI 33.67 11/09/2024 Encounters Encounter Location Date Provider Diagnosis [address] [place] [address] 05/03/2024 Willy Schwarz Tinea unguium B35.1 ; Type 2 diabetes mellitus with diabetic peripheral angiopathy without gangrene E11.51 and Type 2 diabetes mellitus with diabetic polyneuropathy E11.42 [facility] [address] [place] [address] 08/10/2024 Willy Schwarz Tinea unguium B35.1 ; Type 2 diabetes mellitus with diabetic peripheral angiopathy without gangrene E11.51 ; Type 2 diabetes mellitus with diabetic polyneuropathy E11.42 ; Chronic lymphocytic leukemia of B-cell type not having achieved remission C91.10 ; Rheumatoid arthritis, unspecified M06.9 and Immunodeficiency due to conditions classified elsewhere D84.81 [facility] [address] [place] [address] 11/09/2024 Willy Layne unguium B35.1 ; Type 2 diabetes mellitus with diabetic peripheral angiopathy without gangrene E11.51 ; Type 2 diabetes mellitus with diabetic polyneuropathy E11.42 and FDC (current) use of oral hypoglycemic drugs Z79.84 Assessments Encounter Date Diagnosis (ICD Code) Assessment Notes Treatment Notes Treatment Clinical Notes Section Notes 05/03/2024 Type 2 diabetes mellitus with diabetic peripheral angiopathy without gangrene (ICD-10 - E11.51) 05/03/2024 Tinea unguium (ICD-10 - B35.1) I am treating this patient with a minmal risk of morbidity for nail fungus. I discussed with the patient the etiology and treatment for onychomycosis including but not limited to periodic debridement, oral therapy with Lamisil or Sporanox, topical therapy such as Penlac or Formula 3, removal of the nail, and laser therapy. Pt. agreed to periodic debridement today. 08/10/2024 Type 2 diabetes mellitus with diabetic peripheral angiopathy without gangrene (ICD-10 - E11.51) 08/10/2024 Tinea unguium (ICD-10 - B35.1) I am treating this patient with a minmal risk of morbidity for nail fungus. I discussed with the patient the etiology and treatment for onychomycosis including but not limited to periodic debridement, oral therapy with Lamisil or Sporanox, topical therapy such as Penlac or Formula 3, removal of the nail, and laser therapy. Pt. agreed to periodic debridement today. 11/09/2024 Type 2 diabetes mellitus with diabetic peripheral angiopathy without gangrene (ICD-10 - E11.51) 11/09/2024 Tinea unguium (ICD-10 - B35.1) I am treating this patient with a minmal risk of morbidity for nail fungus. I discussed with the patient the etiology and treatment for onychomycosis including but not limited to periodic debridement, oral therapy with Lamisil or Sporanox, topical therapy such as Penlac or Formula 3, removal of the nail, and laser therapy. Pt. agreed to periodic debridement today. 11/09/2024 Type 2 diabetes mellitus with diabetic polyneuropathy (ICD-10 - E11.42) 05/03/2024 Type 2 diabetes mellitus with diabetic polyneuropathy (ICD-10 - E11.42) 08/10/2024 Type 2 diabetes mellitus with diabetic polyneuropathy (ICD-10 - E11.42) 08/10/2024 Chronic lymphocytic leukemia of B-cell type not having achieved remission (ICD-10 - C91.10) Stable from a podiatric perspective, stated to continue to follow up with the treating provider. If any acute issues arise patient advised to immediately call treating provider and patient confirms understanding of such. 11/09/2024 FDC (current) use of oral hypoglycemic drugs (ICD-10 - Z79.84) 08/10/2024 Rheumatoid arthritis, unspecified (ICD-10 - M06.9) Stable from a podiatric perspective, stated to continue to follow up with the treating provider. If any acute issues arise patient advised to immediately call treating provider and patient confirms understanding of such. 08/10/2024 Immunodeficiency due to conditions classified elsewhere (ICD-10 - D84.81) Stable from a podiatric perspective, stated to continue to follow up with the treating provider. If any acute issues arise patient advised to immediately call treating provider and patient confirms understanding of such. Plan Of Treatment Next Appt Details Provider Name:Willy muir, 02/08/2025 03:15:00 PM, [address] [place], [address], [place], [address], Insurance Providers Payer Name Payer Address Payer Phone Subscriber Number Group Number Insured Name Patient Relationship to Insured Coverage Start Date Coverage End Date Medicare Part B J-15 Part [facility] Claims [address] [address] [place] [address] [id number] Kathy Washburn Self - patient is the insured [facility] Health Care Options [address] [place] [address] [id number] Kathy Washburn Self - patient is the insured Medical (General) History Medical History History ICD Code Type II diabetes leukemia hypertension osteoarthritis fibromyalgia Thyroid disease Hypercholestrolemia Surgical History Surgery Date(Month/Year) hernia repair hysterectomy knee replacement x2 back surgery Hospitalization History Reason Date(Month/Year) see surgical
--- OUTSIDE RECORDS SUMMARY | 2024-12-22 10:43 | XMS_ITS | Encounter Summary ---
Author Organization [facility] Address [address] [place] [address] Care Team Providers Care Garbage Collector Name Role Phone Dmitriy Presley DO Primary Care Provider [phone] Dmitriy Presley DO Unavailable [phone] Dmitriy Presley DO Unavailable [phone] Source Comments In the event this information is protected by the Federal Confidentiality of Alcohol and Drug AbusePatient Records regulations: The Federal rules restrict any use of the information to criminally investigate or prosecute any alcohol or drug abuse patient.[facility] Encounter Details Date Type Department Care [...] N ot on file 03/12/2021 Data from: https://www.neighborhoodatlas.medicine.[facility]/. Last address used for calculation Not on [...] 12/19/2025 11:00 AM EDT Office Visit Rheumatology [address] [place] [address] [place] [address] [facility] [place] [address] Return in about 1 year (around 12/17/2025). documented as of this encounter Visit Diagnoses Not on filedocumented in this encounter Care Teams Garbage Collector Relationship Specialty Start Date End Date Dmitriy Presley DO [address] [place] [address] PCP - General Family Medicine 08/01/11 Dmitriy Presley DO [address] [place] [address] Referring Family Medicine 10/04/20 Dmitriy Presley DO [address] [place] [address] Referring Family Medicine 01/09/21 documented as of this encounter
--- OUTSIDE RECORDS SUMMARY | 2024-12-22 10:43 | XMS_ITS | Clinical Summary ---
Author Organization [facility] Address [address] [place] [address] Care Team Providers Care Supervisor Tank House Name Role Phone Dmitriy Presley DO Primary Care Provider [phone] Dmitriy Presley DO Unavailable [phone] Dmitriy Presley DO Unavailable [phone] Allergies Active Allergy Reactions Criticality Noted Date [...] 12/17/2024 10:20 AM EDT Office Visit Rheumatology [address] [place] [address] Bertrand Morrow MD Fibromyalgia (Primary Dx); Primary osteoarthritis involving multiple joints; Type 2 diabetes mellitus without complication, with long-term current use of insulin (HCC); Long-term use of Plaquenil 11/17/2024 Telephone Cancer Appts [address] [place] [address] Chad Freitas MD Records faxed 11/11/2024 Patient [facility] [place] [facility] -3 [address] [place] [address] Leona Romero barron At your next appointment, choose [facility]. from Last 3 Months Family History [...] is lower risk 4 02/07/2023 Data from: https://www.neighborhoodatlas.[facility].edu/. Last address used for calculation [address] [facility] 02/07/2023 Comments No Sex and Gender [...] 12/19/2025 11:00 AM EDT Office Visit Rheumatology [address] [place] [address] [place] [address] [facility] [place] [address] Return in about 1 year (around 12/17/2025). [...] 03/19/2024, , 04/25/2021, Additional history exists Insurance [facility] MEDICARE Care Teams Supervisor Tank House Relationship Specialty Start Date End Date Dmitriy Presley DO [address] [place] [address] PCP - General Family Medicine 08/01/11 Dmitriy Presley DO [address] [place] [address] Referring Family Medicine 10/04/20 Dmitriy Presley, [address] [place] [address] Referring Family Medicine 01/09/21
== END 2024-12-22 10:40 | disposition home or self-care (01) ==
LOC: US 10:39
PROVIDERS: PCP Family Medicine; Visit Provider Internal Medicine
DX: I12.9 Hypertensive chronic 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 4 chronic kidney disease, or unspecified chronic kidney disease (principal); E11.22 Type 2 diabetes mellitus with diabetic chronic kidney disease; N18.32 Chronic kidney disease, stage 3b; E87.5 Hyperkalemia; E55.9 Vitamin D deficiency, unspecified
CPT/HCPCS: 76775

== ENCOUNTER 2024-12-27 13:56 | Outpatient (OUT) | payer MEDICARE, SELFPAY ==
--- OUTSIDE RECORDS SUMMARY | 2024-12-17 10:20 | XMS_ITS | Encounter Summary ---
Author Organization [facility] Address [address] [place] [address] Care Team Providers Care El Teacher Name Role Phone Dmitriy Presley DO Primary Care Provider [phone] Dmitriy Presley DO Unavailable Dmitriy Presley DO Unavailable [phone] Source Comments In the event this information is protected by the Federal Confidentiality of Alcohol and Drug AbusePatient Records regulations: The Federal rules restrict any use of the information to criminally investigate or prosecute any alcohol or drug abuse patient.[facility] Reason for Visit * Reason Comments Osteoarthritis Encounter Details Date Type Department Care Team (Late st Contact Info) Description 12/17/2024 10:20 AM EDT Office Visit Rheumatology [address] [place], [place] [id number] [place] [address] [place] [address] Fibromyalgia (Primary Dx); Primary osteoarthritis [...] is lower risk 4 02/07/2023 Data from: https://www.neighborhoodatlas.[facility]/. 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 There have not been any new health [...] Reviewed on 05/26/2024 Name Date COVID-19 vaccine ([employer]) 03/19/2024, 06/23/2023 COVID-19 vaccine, bivalent ([employer]) 04/18/2022 COVID-19 vaccine, monovalent ([employer]) 06/01/2021, 09/01/2020, 08/11/2020 Physical Exam GENERAL APPEARANCE: [...] which included preparing to see the patient, [id number] patient care, completing clinical documentation, obtaining and/or [...] 12/19/2025 11:00 AM EDT Office Visit Rheumatology [address] [place] [address] [place] [address] [place] [address] Return in about 1 year (around 12/17/2025). documented as of this encounter Visit Diagnoses Diagnosis Fibromyalgia- Primary Mylagia and myositis, unspecified Primary osteoarthritis involving multiple joints Type 2 diabetes mellitus without complication, with long-term current use of insulin (HCC) Long-term use of Plaquenil Encounter for long-term (current) use of other medications documented in this encounter Care Teams El Teacher Relationship Specialty Start Date End Date Dmitriy Presley DO [address] [place] [address] PCP - General Family Medicine 08/01/11 Dmitriy Presley DO [address] [place] [address] Referring Family Medicine 10/04/20 Dmitriy Presley DO [address] [place] [address] Referring Family Medicine 01/09/21 documented as of this encounter
--- OUTSIDE RECORDS SUMMARY | 2024-12-27 13:59 | XMS_ITS | Encounter Summary ---
Author Organization [facility] Address [address] [place] [address] Care Team Providers Care Medical Coding Technician Name Role Phone Dmitriy Presley DO Primary Care Provider [phone] Dmitriy Presley DO Unavailable [phone] Dmitriy Presley DO Unavailable [phone] Source Comments In the event this information is protected by the Federal Confidentiality of Alcohol and Drug AbusePatient Records regulations: The Federal rules restrict any use of the information to criminally investigate or prosecute any alcohol or drug abuse patient.[facility] Encounter Details Date Type Department Care [...] N ot on file 03/12/2021 Data from: https://www.neighborhoodatlas.medicine.[facility]/. Last address used for calculation Not [...] 12/19/2025 11:00 AM EDT Office Visit Rheumatology [address] [place] [address] [place] [address] [facility] [place] [address] Return in about 1 year (around 12/17/2025). documented as of this encounter Visit Diagnoses Not on filedocumented in this encounter Care Teams Medical Coding Technician Relationship Specialty Start Date End Date Dmitriy Presley DO [address] [place] [address] PCP - General Family Medicine 08/01/11 Dmitriy Presley DO [address] [place] [address] Referring Family Medicine 10/04/20 Dmitriy Presley DO [address] [place] [address] Referring Family Medicine 01/09/21 documented as of this encounter
--- OUTSIDE RECORDS SUMMARY | 2024-12-27 13:59 | XMS_ITS | Encounter Summary ---
Author Organization [facility] Address [facility] [place] [address] Care Team Providers Care Bottom Liner Name Role Phone Dmitriy Presley DO Primary Care Provider [phone] Dmitriy Presley DO Unavailable [phone] Dmitriy Presley DO Unavailable [phone] Source Comments In the event this information is protected by the Federal Confidentiality of Alcohol and Drug AbusePatient Records regulations: The Federal rules restrict any use of the information to criminally investigate or prosecute any alcohol or drug abuse patient.[facility] Encounter Details Date Type Department Care Team (Late st Contact Info) Description 05/10/2024 Patient [facility] -3 [address] [place] [address] Leona Romero RPh At your next appointment, choose [facility]. Social History Tobacco Use Types [...] is lower risk 4 02/07/2023 Data from: https://www.neighborhoodatlas.medicine.[facility].edu/. Last address used for calculation [address] [...] 12/19/2025 11:00 AM EDT Office Visit Rheumatology [address] [place] [address] [place] [address] [facility] [place] [address] Return in about 1 year (around 12/17/2025). documented as of this encounter Visit Diagnoses Not on filedocumented in this encounter Care Teams Bottom Liner Relationship Specialty Start Date End Date Dmitriy Presley DO [address] [place] [address] PCP - General Family Medicine 08/01/11 Dmitriy Presley DO [address] [place] [address] Referring Family Medicine 10/04/20 Dmitriy Presley DO [address] [place] [address] Referring Family Medicine 01/09/21 documented as of this encounter
--- OUTSIDE RECORDS SUMMARY | 2024-12-27 13:59 | XMS_ITS | Clinical Summary ---
Author Organization [facility] Address [address] [place] [address] Phone Care Team Providers Care Mixer And Scaler Name Role Phone Dmitriy Presley DO Primary Care Provider [phone] Social History Tobacco Use Types Packs/Day Years [...] age to complete this topic Care Teams Mixer And Scaler Relationship Specialty Start Date End Date Dmitriy Presley DO PCP - General 05/13/18
--- OUTSIDE RECORDS SUMMARY | 2024-12-27 13:59 | XMS_ITS | Encounter Summary ---
Author Organization [facility] Address [address] [facility] [place] [address] Care Team Providers Care Conservation Scientist Name Role Phone Dmitriy Presley MD Primary Care Provider [phone] Maco Guillaume DO Unavailable [phone] Encounter Details Date Type Department Care Team (Late st Contact Info) Description 12/07/2022 Abstract [facility] [address] [facility] [address] [place] [address] Butch Smith DPM [address] [facility] [place] [address] Social History Tobacco Use Types Packs/Day Years [...] EDT Office Visit [facility] [address] [facility] [address] [place] [address] Keith Iglesias DO [address] [facility] [address] [place] [address] documented as of this encounter Visit Diagnoses Not on filedocumented in this encounter Care Teams Conservation Scientist Relationship Specialty Start Date End Date Dmitriy Presley MD [address] [place] [address] [place] [address] PCP - General Family Medicine 12/10/22 Maco Guillaume DO [address] [place] [address] Referring Physician Neurology 08/09/24 documented as of this encounter
--- OUTSIDE RECORDS SUMMARY | 2024-12-27 13:59 | XMS_ITS | Encounter Summary ---
Author Organization [facility] Address [address] [place] [address] Care Team Providers Care Compounder Flavorings Name Role Phone Dmitriy Presley DO Primary Care Provider Dmitriy Presley DO Unavailable [phone] Dmitriy Presley DO Unavailable [phone] Source Comments In the event this information is protected by the Federal Confidentiality of Alcohol and Drug AbusePatient Records regulations: The Federal rules restrict any use of the information to criminally investigate or prosecute any alcohol or drug abuse patient.[facility] Encounter Details Date Type Department Care Team (Late st Contact Info) Description 04/03/2022 Abstract Hematology/Oncology [address] [place] [place] [address] Santos Lares MD [address] [facility] [place] [address] Social History Tobacco Use Types [...] N ot on file 03/12/2021 Data from: https://www.neighborhoodatlas.medicine.[facility].edu/. Last address used for calculation Not [...] 12/19/2025 11:00 AM EDT Office Visit Rheumatology [address] [place] [address] [place] [address] [facility] [place] [address] Return in about 1 year (around 12/17/2025). documented as of this encounter Visit Diagnoses Not on filedocumented in this encounter Care Teams Compounder Flavorings Relationship Specialty Start Date End Date Dmitriy Presley DO [address] [place] [address] PCP - General Family Medicine 08/01/11 Dmitriy Presley DO [address] [place] [address] Referring Family Medicine 10/04/20 Dmitriy Presley DO [address] [place] [address] Referring Family Medicine 01/09/21 documented as of this encounter
--- OUTSIDE RECORDS SUMMARY | 2024-12-27 13:59 | XMS_ITS | Clinical Summary ---
Author Organization [facility] Address [address] [place] [address] Care Team Providers Care Sponge Diver Name Role Phone Dmitriy Presley MD Primary Care Provider [phone] Maco Guillaume DO Unavailable [phone] Allergies Active Allergy Reactions Criticality Noted Date [...] incontinence, # 90 tab(s), Refills(s) 3, Pharmacy: [id number], 178, cm, 02/11/23 11:43:00 [...] PM EDT Office Visit [facility] [address] [facility] [address] [place] [address] Keith Iglesias DO [address] [facility] [address] [place] [address] Health Maintenance Due Date Last Done Comments Pneumococcal Vaccine: 65+ Years Completed 06/23/2023, 04/22/2022, 07/14/2019, Additional history exists Influenza Vaccine Completed 03/19/2024, , 04/25/2021, Additional history exists Insurance MEDICARE [facility] Care Teams Sponge Diver Relationship Specialty Start Date End Date Dmitriy Presley MD [address] [place], [place] [address] [address] PCP - General Family Medicine 12/10/22 Maco Guillaume DO [address] [place] [address] Referring Physician Neurology 08/09/24
--- OUTSIDE RECORDS SUMMARY | 2024-12-27 13:59 | XMS_ITS | Encounter Summary ---
Author Organization [facility] Address [place] [address] Care Team Providers Care Wood Barrel Reconditioner Name Role Phone Dmitriy Presley DO Primary Care Provider [phone] Dmitriy Presley DO Unavailable [phone] Dmitriy Presley DO Unavailable [phone] Source Comments In the event this information is protected by the Federal Confidentiality of Alcohol and Drug AbusePatient Records regulations: The Federal rules restrict any use of the information to criminally investigate or prosecute any alcohol or drug abuse patient.[facility] Encounter Details Date Type Department Care Team (Late st Contact Info) Description 11/11/2024 Patient [facility] -[address] [place] [address] Leona Romero RPh At your next appointment, choose [facility]. Social History Tobacco Use Types [...] is lower risk 4 02/07/2023 Data from: https://www.neighborhoodatlas.medicine.[facility].edu/. Last address used for calculation [address] [...] 12/19/2025 11:00 AM EDT Office Visit Rheumatology [address] [place] [address] [place] [address] [facility] [place] [address] Return in about 1 year (around 12/17/2025). documented as of this encounter Visit Diagnoses Not on filedocumented in this encounter Care Teams Wood Barrel Reconditioner Relationship Specialty Start Date End Date Dmitriy Presley DO [address] [place] [address] PCP - General Family Medicine 08/01/11 Dmitriy Presley DO [address] [place] [address] Referring Family Medicine 10/04/20 Dmitriy Presley DO [address] [place] [address] Referring Family Medicine 01/09/21 documented as of this encounter
--- OUTSIDE RECORDS SUMMARY | 2024-12-27 13:59 | XMS_ITS | Clinical Summary ---
Author Organization [facility] Address [address] [place] [id number] Care Team Providers Care Screen Machine Operator Name Role Phone Dmitriy Presley DO Primary Care Provider [phone] Dmitriy Presley DO Unavailable Dmitriy Presley DO Unavailable [phone] Allergies Active Allergy Reactions Criticality Noted Date [...] 12/17/2024 10:20 AM EDT Office Visit Rheumatology [address] [place] [address] Bertrand Morrow MD Fibromyalgia (Primary Dx); Primary osteoarthritis involving multiple joints; Type 2 diabetes mellitus without complication, with long-term current use of insulin (HCC); Long-term use of Plaquenil 11/17/2024 Telephone Cancer [facility] [address] [place] [address] Chad Freitas MD Records faxed 11/11/2024 Patient [facility] -[phone] [place] [address] Leona Romero barron At your next appointment, choose [facility]. from Last 3 Months Family History [...] is lower risk 4 02/07/2023 Data from: [email or web address] Last address used for calculation [address] [...] 12/19/2025 11:00 AM EDT Office Visit Rheumatology [address] [place] [address] [place] [id number] [facility] [place] [address] Return in about 1 year (around 12/17/2025). Health Maintenance Due Date Last Done Comments HbA1C 1947 Diabetic Foot Exam 1952 Dilated Retinal Exam 1952 Urine Albumin:Creatinine Ratio 1952 Anxiety Screening 1960 Depression Screening 1960 LDL Cholesterol 1960 Medicare Annual Wellness Visit 06/13/2007 Bone Density Screening 2007 Shingrix Vaccine (2 of 2) 08/18/2023 06/23/2023 Advance Directive Discussion 07/14/2024 Covid-19 Vaccine (7 - 2023-2 5 season) 2024 03/19/2024, 06/23/2023, 04/18/2022, Additional history exists DTaP,Tdap,Td Vaccine (2 - Td or Tdap) 01/14/2032 01/13/2022 Pneumococcal Vaccine: 50+ Completed 2022, 04/22/2022, 07/14/2019, Additional history exists RSV Vaccine Completed 06/23/2023 Influenza Vaccine Completed 03/19/2024, , 04/25/2021, Additional history exists Insurance [facility] Care Teams Screen Machine Operator Relationship Specialty Start Date End Date Dmitriy Presley DO [address] [place] [address] PCP - General Family Medicine 08/01/11 Dmitriy Presley DO [address] [place] [address] Referring Family Medicine 10/04/20 Dmitriy Presley DO [address] [place] [address] Referring Family Medicine 01/09/21
--- NOTE | 2024-12-27 14:50 | PM.CN ---
Consult Note: HPI Data of Consult Patient: known to practice within the last 3 years Consult date: 12/27/24 Requesting Physician: Som Azul MD Primary Care Provider: AYANNA VICENTE Consult Narrative Reason for consult: low back, right hip, bilateral leg pain Narrative: 84yof who presents for assessment. notes about 50% relief after recent lumbar medial branch block. notes persistence of low back, bilateral leg pain, right hip pain. multilevel fusion in lumbar spine. continues to utilize pain medication as needed. denies adverse med side effects. cc:: CC: Som Azul MD Review of Systems ROS Status of ROS 10 or more systems reviewed and unremarkable except as noted in history and below [facility] Medical History Osteoarthritis ?M19.90 - Unspecified osteoarthritis, unspecified site (ICD-10) Chronic lymphocytic leukemia ?C91.10 - Chronic lymphocytic leukemia of B-cell type not having achieved remission (ICD-10) Diabetes ?E11.9 - Type 2 diabetes mellitus without complications (ICD-10) Former smoker ?Z87.891 - Personal history of nicotine dependence (ICD-10) High cholesterol ?E78.00 - Pure hypercholesterolemia, unspecified (ICD-10) Hypertension ?I10 - Essential (primary) hypertension (ICD-10) Surgical History S/P lumbar fusion ?Z98.1 - Arthrodesis status (ICD-10) S/P hernia surgery ?Z98.890 - Other specified postprocedural states (ICD-10) ?Z87.19 - Personal history of other diseases of the digestive system (ICD-10) H/O: hysterectomy ?Z90.710 - Acquired absence of both cervix and uterus (ICD-10) Social History Smoking status: Never smoker Little interest or pleasure in doing things: not at all Feeling down, depressed, or hopeless: not at all Meds Home Medications and Allergies Home Medications ?Medication ?Instructions ?Recorded ?Confirmed ?Type B-complex with vitamin C 1 tab PO DAILY 08/25/23 12/20/24 History aspirin 81 mg tablet,delayed 81 mg PO DAILY 08/25/23 12/20/24 History release atorvastatin 20 mg tablet (Lipitor) 20 mg PO DAILY 08/25/23 12/20/24 History cholecalciferol (vitamin D3) 125 125 mcg PO DAILY 08/25/23 12/20/24 History mcg (5,000 unit) capsule ezetimibe 10 mg tablet (Zetia) 10 mg PO DAILY 08/25/23 12/20/24 History levothyroxine 100 mcg tablet 100 mcg PO DAILY 08/25/23 12/20/24 History (Synthroid) lisinopril 10 mg tablet 10 mg PO DAILY 08/25/23 12/20/24 History metformin 1,000 mg tablet 1,000 mg PO BID 08/25/23 12/20/24 History multivitamin 1 tab PO DAILY 08/25/23 12/20/24 History oxybutynin chloride 5 mg tablet 5 mg PO DAILY 08/25/23 12/20/24 History oxycodone-acetaminophen 5 mg-325 1 tab PO BID PRN pain 08/25/23 12/20/24 History mg tablet pregabalin 225 mg capsule (Lyrica) 225 mg PO BID 08/25/23 12/20/24 History propranolol 60 mg tablet 60 mg PO DAILY 08/25/23 12/20/24 History triamterene 37.5 1 tab PO DAILY 08/25/23 12/20/24 History mg-hydrochlorothiazide 25 mg tablet (Maxzide-25mg) venlafaxine 75 mg capsule,extended 75 mg PO DAILY 08/25/23 12/20/24 History release 24 hr (Effexor XR) zolpidem 5 mg tablet 5 mg PO DAILY 08/25/23 12/20/24 History Allergies Allergy/AdvReac Type Severity Reaction Status Date / Time cefpodoxime (From Vantin) Allergy Unknown Unknown Verified 12/20/24 11:30 Exam Narrative Exam Narrative: Psych-alert and oriented x 3. Attentive and appropriate, constitutionally normal, displays normal mood and affect per situation.? There are no obvious deficits in memory, reasoning, or intellect.? Skin-no obvious rashes, bruising, erythema noted to the patient's area of pain. Extremities- extremities are warm with minimal edema and palpable pulses. Lumbar-no significant tenderness to palpation noted in the lumbar spine and paraspinal musculature.? Pain is elicited with extension, and lateral rotation of the lumbar spine. Range of motion is slightly diminished with these motions due to pain. Coordination remains intact.? Gait remains non-antalgic. Assessment and Plan Assessment and Plan (1) Failed back syndrome: (2) Lumbar spondylosis: (3) Lumbar postlaminectomy syndrome: (4) Lumbar stenosis with neurogenic claudication: Plan 84yof who presents for assessment. unfortunately only had about 50% relief after recent medial branch block, so will not proceed with second diagnostic block. discussed that given her persistence of low back pain, coupled with history of back surgery and failure to respond to other conservative measures, she may be appropriate candidate for lumbar scs. provided her with info about this. she expressed understanding. also notes persistence of right hip pain. would like to proceed with right troch bursa injection. meds reviewed, no changes. follow up in 2-3 weeks. procedure: right greater trochanteric bursa injection medications: bupivacaine 0.25% 4cc, depomedrol 40mg I explained the details of the procedure to the patient including the risks, benefits and alternatives. We had an informed discussion and the patient verbalized understanding and signed the consent form. All questions were answered appropriately.? A time out was performed.? The skin overlying the right lateral hip was prepped with alcohol x3. A sterile syringe containing the above medication was attached to a 25 gauge, 3.5 inch needle under strict aseptic technique. The greater trochanter and point of tenderness was palpated. At this point, the needle was then advanced through the subcutaneous tissue down to os. The needle was withdrawn slightly and the contents of the syringe were gently injected without any resistance. The needle was removed and pressure was applied to the injection site to decrease the incidence of ecchymosis and hematoma formation.? A sterile bandage was applied. Post procedural instructions were given to the patient.
== END 2024-12-27 13:57 | disposition home or self-care (01) ==
LOC: PM 13:57
PROVIDERS: PCP Family Medicine; Visit Provider Anesthesiology
DX: M96.1 Postlaminectomy syndrome, not elsewhere classified (principal); M47.816 Spondylosis without myelopathy or radiculopathy, lumbar region; M48.062 Spinal stenosis, lumbar region with neurogenic claudication
CPT/HCPCS: 20610; J0665; J1010

== ENCOUNTER 2025-01-17 12:55 | Outpatient (OUT) | payer MEDICARE, SELFPAY ==
--- OUTSIDE RECORDS SUMMARY | 2025-01-12 13:20 | XMS_ITS ---
Author Name Auto Generated Organization OHIP Care Team Providers Care Mat Cutter Name Role Phone ESVIN DUBON Attending Unavailable JAMES COBIAN Attending Unavailable BABITA COFFEY Attending Unavailable AYANNA VICENTE Referring Unavailable MOE BETTS Attending Unavailable MOE BETTS Attending Unavailable JOEL FREDERICK Attending Unavailable BABITA COFFEY Referring Unavailable Giedraitis , Andrius Bryson Attending Unavailable Giedraitis , Andrius Adelaide Attending Unavailable Giedraitis , Andrius Adelaide Attending Unavailable Giedraitis , Andrius Adelaide Attending Unavailable Giedraitis , Andrius Adelaide Attending Unavailable Giedraitis , Andrius Vrashad Attending Unavailable Giedraitis , Andrius Vytjose juan Attending Unavailable Giedraitis , Andrius Adelaide Attending Unavailable Ayanna Vicente Admitting Unavailable Sakina, Ayanna Attending Unavailable Sakina, Ayanna Attending Unavailable Sakina, Ayanna Admitting Unavailable Sakina, Ayanna Primary Care Unavailable Sakina, Ayanna Admitting Unavailable Sakina, Ayanna Primary Care Unavailable Sakina, Ayanna Attending Unavailable Sakina, Ayanna Admitting Unavailable Sakina, Ayanna Attending Unavailable Sakina, Ayanna Attending Unavailable Sakina, Ayanna Admitting Unavailable Ayanna Vicente Primary Care Unavailable MarkerTri Admitting Unavailable Marker, Tri Vasquez Attending Unavailable AYANNA VICENTE Primary Care Unavailable SELF Referring Unavailable ZOHAIB MORROW Attending Unavailable AYANNA VICENTE Primary Care Unavailable AYANNA VICENTE Primary Care Unavailable CHAD FREITAS Attending Unavailable ZOHAIB MORROW Attending Unavailable AYANNA VICENTE Primary Care Unavailable SUSAN CAMARA Attending Unavailable SUSAN CAMARA Attending Unavailable PROBLEMS DATE TYPE CONDITION / CODE ATTENDING STATUS [facility] 12/17/2024 Active Fibromyalgia / M79.7(ICD-10) ZOHAIB MORROW Active [facility] 12/17/2024 Active 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) ZOHAIB MORROW [facility] 12/17/2024 Active Type 2 diabetes mellitus without complication, with long-term current use of insulin (HCC) / E11.9(ICD-10) ZOHAIB MORROW [facility] 12/17/2024 Active Type 2 diabetes mellitus without complication, with long-term current use of insulin (HCC) / Z79.4(ICD-10) ZOHAIB MORROW [facility] 12/17/2024 Active Long-term use of Plaquenil / Z79.899(ICD-10) ZOHAIB MORROW Active [facility] 08/10/2024 Unknown Cystitis, unspec ified without hematuria / N30.90(ICD-10) Sakina [facility] 05/26/2024 Active CLL (chronic lymphocytic leukemia) (HCC) / C91.10(ICD-10) CHAD FREITAS Active [facility] 05/26/2024 Unknown Pain in left hip / M25.552(ICD-10) [facility] Encounter for sc reening mammogram for malignant neoplasm of breast / Z12.31(ICD-10) [facility] Unknown Type 2 diabetes mellitus without complications / E11.9(ICD-10) [facility] PROCEDURES No Procedure Records Found RESULTS PROGRESS Observed: 12/17/2024 10:27 AM Status: COMPLETED Source: [facility] HNO ID: [id number] Author: ZOHAIB MORROW MD Service: ? Author Type: Physician Type: Progress Notes Filed: 12/17/2024 10:49 Note Text: Rheumatology Outpatient Clinic Date of Service: 12/17/2024 Patient: Kathy Aparicio Medical Record: [id number] Primary Care Physician: Ayanna Vicente DO Last Rheumatology visit: 05/17/2024 (with Zohaib Morrow) History of Present Illness Kathy Aparicio is a 84 year old White female [...] as convinced that this has been as effective as it once was in the past. She still has to daily stiffness and achiness multiple joint areas. There is about one joint area that is worse than the other. She did inquire about other treatment options. 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 There have not been any new health [...] resulted procedures found. Labs Latest Ref Rng AND Units 05/26/2024 08/08/2023 02/07/2023 07/19/2022 CBC WBC [...] 14.61 13.41 12.31 11.45 Latest Ref Rng AND Units 05/26/2024 08/08/2023 02/07/2023 07/19/2022 CMP Sodium [...] 107 121 119 115 Latest Ref Rng AND Units 02/20/2004 ESR, WSR WSR 0 - 30 mm/Hr 5 Latest Ref Rng AND Units 02/20/2004 CRP CRP 0.0 - 2.0 mg/dL 0.7 Latest Ref Rng AND Units 04/04/2022 Hepatitis Screen Hep B Core [...] Reviewed on 05/26/2024 Name Date COVID-19 vaccine ([employer]) 03/19/2024, 06/23/2023 COVID-19 vaccine, bivalent ([employer]hen[employer]) 04/18/2022 COVID-19 vaccine, monovalent ([employer]ION[employer]) 06/01/2021, 09/01/2020, 08/11/2020 Physical Exam GENERAL APPEARANCE: Well groomed. Alert and oriented x 3. In no distress. VITAL SIGNS: BP 112/71 Temp 65 Ht 5' 7.99 (1.73m) Wt 228 lb 6.3 oz (103.6kg) BMI 34.74 kg/(m2). SKIN: No rash, thickening, nodules, discoloration. EYES: [...] use of insulin ([facility]) (Z79.899) Long-term use of Plaquenil Plan Orders this visit: Office Visit on 12/17/24 hydrOXYchloroQUINE (PLAQUENIL) 200 mg tablet Discussed current status of her osteoarthritis as active on hydroxychloroquine 400 mg daily. I do not have a safer more effective approach alternate perhaps sulfasalazine but there is the concern for its effects on her kidney status. After much discussion of now we decided to stay with the hydroxychloroquine and I dispensed 180 tabs and 3 additional refills. She understands need for an annual eye exam we will continue to go forward with that. Return in about 1 year (around 12/17/2025). I spent a total of 30 minutes on the date of the service which included preparing to see the patient, [id number] patient care, completing clinical documentation, obtaining and/or reviewing separately obtained history, performing a medically appropriate examination, counseling and educating the patient/family/caregiver, and ordering medications, tests, or procedures. Medical Decision Making: Problems: Moderate: 1+ chronic illnesses with change Risk: High: High risk from testing/treatment Medical Decision Making Level: 4 - Moderate Zohaib Morrow MD Rheumatology Date: December 17, 2024 Time: 10:27 AM HILL Observed: 12/17/2024 10:20 AM Status: COMPLETED Source: [facility] Office Visit (INEZ) KATHY APAIRCIO ([id number]) 1940 F Date Time Provider Department 12/17/24 10:20 AM ZOHAIB MORROW During your visit today, we recorded the following information about you: Temperature Blood pressure Weight Height 65 degrees 112/71 103.6 kg 1.727 m Zohaib Morrow MD 12/17/2024 10:49 AM Signed Rheumatology Outpatient Clinic Date of Service: 12/17/2024 Patient: Kathy Aparicio Medical Record: [id number] Primary Care Physician: Ayanna Vicente DO Last Rheumatology visit: 05/17/2024 (with Zohaib Morrow) History of Present Illness Kathy Aparicio is a 84 year old White female [...] as convinced that this has been as effective as it once was in the past. She still has to daily stiffness and achiness multiple joint areas. There is about one joint area that is worse than the other. She did inquire about other treatment options. 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 There have not been any new health [...] resulted procedures found. Labs Latest Ref Rng AND Units 05/26/2024 08/08/2023 02/07/2023 07/19/2022 CBC WBC [...] 14.61 13.41 12.31 11.45 Latest Ref Rng AND Units 05/26/2024 08/08/2023 02/07/2023 07/19/2022 CMP Sodium [...] 107 121 119 115 Latest Ref Rng AND Units 02/20/2004 ESR, WSR WSR 0 - 30 mm/Hr 5 Latest Ref Rng AND Units 02/20/2004 CRP CRP 0.0 - 2.0 mg/dL 0.7 Latest Ref Rng AND Units 04/04/2022 Hepatitis Screen Hep B Core [...] Reviewed on 05/26/2024 Name Date COVID-19 vaccine ([employer]hen[employer]) 03/19/2024, 06/23/2023 COVID-19 vaccine, bivalent ([employer]BIONT[employer]blance) 04/18/2022 COVID-19 vaccine, monovalent ([employer]) 06/01/2021, 09/01/2020, 08/11/2020 Physical Exam GENERAL APPEARANCE: Well groomed. Alert and oriented x 3. In no distress. VITAL SIGNS: BP 112/71 Temp 65 Ht 5' 7.99 (1.73m) Wt 228 lb 6.3 oz (103.6kg) BMI 34.74 kg/(m2). SKIN: No rash, thickening, nodules, discoloration. EYES: [...] with long-term current use of insulin (HCC) (Z79.899) Long-term use of Plaquenil Plan Orders this visit: Office Visit on 12/17/24 hydrOXYchloroQUINE (PLAQUENIL) 200 mg tablet Discussed current status of her osteoarthritis as active on hydroxychloroquine 400 mg daily. I do not have a safer more effective approach alternate perhaps sulfasalazine but there is the concern for its effects on her kidney status. After much discussion of now we decided to stay with the hydroxychloroquine and I dispensed 180 tabs and 3 additional refills. She understands need for an annual eye exam we will continue to go forward with that. Return in about 1 year (around 12/17/2025). I spent a total of 30 minutes on the date of the service which included preparing to see the patient, [id number] patient care, completing clinical documentation, obtaining and/or reviewing separately obtained history, performing a medically appropriate examination, counseling and educating the patient/family/caregiver, and ordering medications, tests, or procedures. Medical Decision Making: Problems: Moderate: 1+ chronic illnesses with change Risk: High: High risk from testing/treatment Medical Decision Making Level: 4 - Moderate Zohaib Morrow MD Rheumatology Date: December 17, 2024 Time: 10:27 AM Referring Provider: SELF [200] Allergies As of Date: 12/17/2024 Noted Allergy Reaction CEPHALOSPORINS 02/20/2004 4 - Hives 7 - Swelling VANTIN (CEFPODOXIME) 04/03/2022 16 - Unknown Date Reviewed: 05/26/2024 Reviewed by: Lluvia Samuel MA - Fully Assessed Reason for Visit: Osteoarthritis [578] Primary Visit Diagnosis:Fibromyalgia [M79.7] Other Visit Diagnoses:Primary osteoarthritis involving multiple joints [M15.0] Type 2 diabetes mellitus without complication, with long-term current use of insulin (HCC) [E11.9, Z79.4] Long-term use of Plaquenil [Z79.899] Order(s):hydrOXYchloroQUINE (PLAQUENIL) 200 mg tabletTake 2 tablets by mouth once daily.Disp: 180 tabletRfl: 3 Prescriptions as of 12/17/2024 - hydrOXYchloroQUINE (PLAQUENIL) 200 mg tablet Take 2 tablets by mouth once daily. - venlafaxine ER (EFFEXOR XR) 75 mg 24 hr capsule Take 75 mg by mouth once daily. - insulin glargine (LANTUS) 100 unit/mL injection Inject subcutaneously. 21 units - LYRICA 225 mg ORAL capsule Take 225 mg by mouth twice daily. - OXYCODONE-ACETAMINOPHEN 5-325 mg ORAL tablet as needed. - [...] tablet daily. Problem List As Of Date 12/17/2024 Noted Resolved Knee pain [M25.569] 07/24/2011 Prescriptions ordered this encounter Disp Refills Start End HYDROXYCHLOROQUINE 200 MG TABLET 180 * 3 12/17/2024 12/12/2025 Route: PO Sig: Take 2 tablets by mouth once daily. Medications Discontinued During This Encounter Prescriptions - hydrOXYchloroQUINE (PLAQUENIL) 200 mg tablet (Discontinued) Take 2 tablets by mouth once daily. Disposition: Return in about 1 year (around 12/17/2025). Follow-up and Disposition History for Encounter Date Provider Department Center 12/17/2024 [id number] MORROW Rej Annotated image of Homunculus image last updated by Zohaib Morrow MD on 12/17/2024 10:49 AM Encounter Status:Closed by ZOHAIB MORROW on 12/17/24 [facility] Observed: 11/17/2024 12:00 AM Status: COMPLETED Source: [facility] MADDISONKATHY Chester ([id number]) 1940 F Date Time Provider Department 11/17/24 CHAD FREITAS During your visit today, we recorded the following information about you: Monzon LondonLori 11/17/2024 11:[address] Zena DREW Received a call from patient caregiver Ilsa Alexandregins. She stated that patient would like to cancel her upcoming appointment with Dr Paredes on 11/24 due to patient is going to be following with Dr Silva @ [facility] as this is closer to home for patient. Ilsa requested to talk to medical records regarding having records sent to Dr Silva transferred call To Heather Todd. [facility] 11/17/2024 2:36 PM Signed Records faxed to Dr. Silva [phone]. I called Ilsa to let her know they were faxed. [...] 225 mg by mouth twice daily. - OXYCODONE-ACETAMINOPHEN 5-325 mg ORAL tablet as needed. - [...] Encounter Status:Closed by LORI RENNER on 11/17/24 URINE CULTURE Observed: 09/03/2024 11:25 AM Status: F Source: [facility] 75,000 colonies/ml mixed bacterial skin contaminants 2 Days PERFORMED BY: [place] [address] PATHOLOGIST PORTRAIT PHOTOGRAPHER IDA ARMIJO M.D. Performed By: #### CUU #### [address] UROLOGY OFFICE/CLINIC NOTE Observed: 09/2024 10:05 AM Status: F Source: [facility] Urology Office/Clinic Note Chief Complaint Frequent UTI [...] will consider cystoscopy w possible UD. Ordered: 78497 Measure Post Void residual urine and/or bladder capacity by US- non- imaging Complex E&M Add on G2211 E&M of Est. Patient Moderate 30-39 Min 10182 Urnls Dip Stick Auto w/o Microscopy POC 82252 2. Urgency incontinence (N39.41: Urge incontinence) S/p Botox 100u 08/30/21. [place] sxs only improved for a few weeks [...] E&M of Est. Patient Moderate 30-39 Min 81622 Orders: estradiol topical, See Instructions, 42.5 gm, Refill(s) 6, apply a pea-sized amount vaginally and around the urethra 3x per week for UTI prevention, [facility], 178, cm, 08/16/24 9:10:00 EST, Height/Length Dosing, 103, kg, 08/16/24 9:10:00 EST, Weight Do... Follow-up With When Contact Information JAX BECKMAN, SUSAN Miller, URL In 6 months [address] [place] [address] Additional Instructions: Patient Education Antibiotic [...] hernia repair, History of hernia repair. Medications acetaminophen-oxycodone 325 mg-5 mg oral tablet, Oral, q6hr Ambien 10 mg Tab, 10 mg= 1 tab(s), Oral, Once a day (at bedtime), PRN aspirin 81 mg Oral EC Tab, Oral, Daily CeleXA 40 mg Tab, 40 mg= 1 tab(s), Oral, Daily Estrace 0.1 mg/g Cream, See Instructions, 6 refills Inderal LA 60 mg Cap-ER, 60 mg= 1 cap(s), Oral, Daily Lantus Solostar Pen 100 units/mL subcutaneous solution, SubCutaneous, Daily Lasix 20 mg Tab, 20 mg= 1 tab(s), Oral, Daily Lipitor 20 mg Tab, 20 mg= 1 tab(s), Oral, Daily Lyrica 225 mg oral capsule, 225 mg= 1 cap(s), Oral, BID Maxzide-25 oral tablet, 0.5 tab(s), Oral, Daily metformin 1000 mg oral tablet, extended release, 1000 mg= 1 tab(s), Oral, BID Multivitamins and Minerals Synthroid 100 mcg Tab, 100 mcg= 1 tab(s), Oral, Daily trospium 20 mg oral tablet, 20 mg= 1 tab(s), Oral, BID, 11 refills Vitamin B Complex oral capsule, Oral, Daily Zestril 10 mg Tab, 10 mg= 1 tab(s), Oral, Daily Zetia 10 mg Tab, 10 mg= 1 tab(s), Oral, Daily Allergies Vantin (Eye swelling) cephalosporins (Swelling, Eye swelling) Social History Tobacco Former smoker, quit more than 30 days ago Tobacco Use:. Never Smokeless Tobacco Use:. Cigarettes, 08/16/2024 Family History Alzheimer's disease: Father. CAD - Coronary artery disease: Father. Cancer: Mother. Dementia: Mother. Heart disease: Father. Hypertension: Father. Mental illness: Mother and Father. Parkinsons disease: Brother. Immunizations Vaccine Date Status influenza virus vaccine, inactivated 03/19/2024 Recorded zoster vaccine, inactivated 06/23/2023 Recorded pneumococcal 20-valent conjugate vaccine 06/23/2023 Recorded influenza virus vaccine, inactivated 04/15/2023 Recorded pneumococcal 23-valent vaccine 04/22/2022 Recorded SARS-CoV-2 (COVID-19) mRNAMUL.[id number] 04/18/2022 Recorded diphtheria/pertussis, acel/tetanus adult 01/13/2022 Recorded SARS-CoV-2 (COVID-19) mRNA BNT-162b2 vax 06/01/2021 Recorded influenza virus vaccine, inactivated 04/25/2021 Recorded influenza virus vaccine, inactivated 04/04/2021 Recorded SARS-CoV-2 (COVID-19) mRNA-1273 vaccine 09/01/2020 Recorded SARS-CoV-2 (COVID-19) mRNA-1273 vaccine 08/11/2020 Recorded influenza virus vaccine, inactivated 03/2020 Recorded pneumococcal 13-valent vaccine 07/14/2019 Recorded pneumococcal 23-valent vaccine 04/03/2019 Recorded influenza virus vaccine, inactivated 04/03/2019 Recorded influenza virus vaccine, inactivated 05/25/2018 Recorded Lab Results Ambulatory Point of Care Results Bilirubin Urine Dipstick: Negative (08/16/24 09:01:00) Blood Urine Dipstick: Negative (08/16/24 09:01:00) Glucose Urine Dipstick: Negative (08/16/24 09:01:00) Ketones Urine Dipstick: Negative (08/16/24 09:01:00) Leukocytes Urine Dipstick: Negative (08/16/24 09:01:00) Nitrite Urine Dipstick: Negative (08/16/24 09:01:00) Protein Urine Dipstick: 1+ (30 mg/dl) (08/16/24 09:01:00) Specific [place] Urine Dipstick: 1.025 (08/16/24 09:01:00) Urine Appearance Urine Dipstick: Clear (08/16/24 09:01:00) Urine Color Urine Dipstick: Yellow (08/16/24 09:01:00) Urobilinogen Urine Dipstick: Normal 0.2-1 EU/dl (08/16/24 09:01:00) pH Urine Dipstick: 5.5 (08/16/24 09:01:00) Result Comment: Electronical ly Signed By: SUSAN CAMARA PA-C\ke\Date and Time Signed: 08/16/24 10:05 EST AMBULATORY VISIT SUMMARY Observed: 08/16 10:05 AM Status: F Source: [facility] Ambulatory Visit Summary KATHY APARICIO :1940 Visit Date:08/16/2024 Ambulatory Visit Instructions Your Diagnosis Recurrent UTI Urgency incontinence Your Care Team Attending Physician - SUSAN CAMARA PA-C Primary Care Physician - Ayanna Vicente DO This Is Your Medications List estradiol topical (Estrace 0.1 mg/g Cream) Contact prescribing physician if questions or concerns acetaminophen-oxycodone (acetaminophen-oxycodone 325 mg-5 mg oral tablet) aspirin (aspirin 81 mg Oral EC Tab) atorvastatin (Lipitor 20 mg Tab) citalopram (CeleXA 40 mg Tab) ezetimibe (Zetia 10 mg Tab) furosemide (Lasix 20 mg Tab) hydrochlorothiazide-triamterene (Maxzide-25 oral tablet) insulin glargine (Lantus Solostar [...] Appointments Friday 1:20 PM EDT With: SUSAN CAMARA PA-C Where: [facility] [address] [place] [address]- You Need to Schedule the Following Appointments Follow Up with JAX PA-C, SUSAN E, URL When: In 6 months Where: [address] [place] [address] Medications What How Much When Instructions New estradiol topical (Estrace 0.1 mg/ g Cream) See instructions Refills: 6 apply a pea-sized amount vaginally and around the urethra 3x per week for UTI prevention Pickup at [facility] Unchanged acetaminophen-oxycodone (acetaminophen-oxycodone 325 mg-5 mg oral tablet) By Mouth [...] prescribing physician if questions or concerns Unchanged hydrochlorothiazide-triamterene (Maxzide-25 oral tablet) 0.5 Tablets By Mouth [...] physician if questions or concerns Pharmacy Information [facility]: [address] [place] [phone] Allergies Vantin (Eye swelling) cephalosporins (Swelling, Eye swelling) Problems Ongoing - Any problem that you are currently receiving treatment for. Arthritis Depression Fibromyalgia Headache Hyperlipidemia Hypertension Hypothyroidism Insomnia Lumbar pain Lung nodule Neuropathy Overactive bladder Peripheral edema Recurrent UTI Rheumatism Sacroiliac dysfunction Stress incontinence Type 2 diabetes mellitus Urgency incontinence Patient Survey You may receive a survey via text or e-mail asking about your office visit. Please share your experience with us by completing your survey. We appreciate your feedback and thank you for choosing us for your care. Education Materials Antibiotic Medicine, Adult Antibiotic medicines are used [...] help right away if: ??? You have signs of a severe allergic reaction to antibiotics. If you have any of these signs, stop taking the antibiotic right away. Signs may include: ? Raised, itchy, red bumps on your skin (hives). ? Skin rash. ? Trouble breathing. ? High-pitched whistling sounds when you breathe, most often when you breathe out (wheezing). ? Swelling anywhere on your body. ? Feeling dizzy. ? Vomiting. ??? You have signs of liver problems, such as: ? Dark or blood-colored urine. ? Yellow color to your skin. ? Bruising or bleeding easily. ??? You have severe diarrhea, bloody diarrhea, or stomach cramps. ??? You have a severe headache. These symptoms may be an emergency. Get help right away. Call 911. ??? Do not wait to see if the symptoms will go away. ??? Do not drive yourself to the hospital. This information is not intended to replace advice given to you by your health care provider. Make sure you discuss any questions you have with your health care provider. Document Revised: 01/28/2023 Document Reviewed: 01/28/2023 Elsevier Patient Education ??? 2023 [employer] PATIENT EDUCATION Observed: 08/16/2024 10:04 AM Status: F Source: [facility] Patient Education Caregiving Antibiotic Medicine, Adult Antibiotic [...] help right away if: ??? You have signs of a severe allergic reaction to antibiotics. If you have any of these signs, stop taking the antibiotic right away. Signs may include: ? Raised, itchy, red bumps on your skin (hives). ? Skin rash. ? Trouble breathing. ? High-pitched whistling sounds when you breathe, most often when you breathe out (wheezing). ? Swelling anywhere on your body. ? Feeling dizzy. ? Vomiting. ??? You have signs of liver problems, such as: ? Dark or blood-colored urine. ? Yellow color to your skin. ? Bruising or bleeding easily. ??? You have severe diarrhea, bloody diarrhea, or stomach cramps. ??? You have a severe headache. These symptoms may be an emergency. Get help right away. Call 911. ??? Do not wait to see if the symptoms will go away. ??? Do not drive yourself to the hospital. This information is not intended to replace advice given to you by your health care provider. Make sure you discuss any questions you have with your health care provider. Document Revised: 01/28/2023 Document Reviewed: 01/28/2023 [employer] Patient Education ? 2023 [employer] DIPSTICK AND MICROSCOPIC Collected: 11:42 AM Status: F Source: [facility] Order Comment: Name Collecti on Type:: Clean-Voided Midstream TYPE CODE TESTS RESULT OUT OF RANGE REFERENCE UNITS LAB UCOL Color,Urine Dark-Yellow Abnormal Alert Yellow LAB UAPP Appearance,Ur ine Cloudy Abnormal Alert Clear LAB USG Specificy [place],Urine 1.022 Normal 1.001-1.030 LAB UPH pH,Urine 6.0 Normal 5.0-9.0 LAB ULE Leukocyte Esterase,Urin e 4+ High Negative LAB UNIT Nitrite,Urine Positive High Negative LAB UPRO Protein,Urine 30 High Negative mg/dL LAB UGL Glucose,Urine (UA) Normal Normal LAB UKET Ketones,Urine Negative Negative LAB UURO Urobilinogen, Urine Normal Normal LAB UBIL Bilirubin,Uri ne Negative Negative LAB UBLD Occult Blood,Urine Negative Negative Result Comment: PERFORMED BY : [place] [address] PATHOLOGIST PORTRAIT PHOTOGRAPHER IDA ARMIJO M.D. LAB URBC RBC,Urine 1 0-4 [HPF] LAB UWBC WBC,Urine Innumerable High 0-4 LAB UCLUMPWBC WBC CLUMP, Urine Many High None Seen LAB USQEPI Squamous Epithelial Cell,Urine 1 0-2 [HPF] LAB UBACT Bacteria,Urin e None Seen None Seen LAB UHYALC Hyaline Casts,Urine 0 0-8 [LPF] LAB MUCUS Mucus,Urine Rare Result Comment: PERFORMED BY : [place] [address] PATHOLOGIST PORTRAIT PHOTOGRAPHER IDA ARMIJO M.D. Performed By: #### ADDONUAPL , CUU #### [address] URINE CULTURE Observed: 08/10/2024 11:42 AM Status: F Source: [facility] ORGANISM: Escherichia coli ( O:ESCCOL) [place] Count >100,000 Aerobic CORNELIA Charge (NMIC56) SUSCEPTIBILITY ORGANISM: O:ESCCOL ANTIBIOTIC INTERPRETATION CORNELIA Amikacin S <16 Amoxacillin/K Clavulanate S <8 Ampicillin S <8 Ampicillin/Sulbactam S <4 Aztreonam S <4 Cefazolin S <2 Cefepime S <2 Ceftazidime S <1 Ceftazidime/Avibactam S <4 Ceftolozane/Tazobactam S <2 Ceftriaxone S <1 Cefuroxime S <4 Ciprofloxacin S <0.25 Ertapenem S <0.5 Gentamicin S <2 Levofloxacin S <0.5 Meropenem S <1 Meropenem/Vaborbactam S <2 Nitrofurantoin S <32 Piperacillin/Tazobactam S <8 Tetracycline S <4 Tigecycline S <2 Tobramycin S <2 Trimethoprim/Sulfamethoxazole S <0.5 S = SUSCEPTIBLE I = [...] PERFORMED BY: [facility] [address] [id number] PATHOLOGIST PORTRAIT PHOTOGRAPHER IDA ARMIJO M.D. Performed By: #### ADDONUAPL , PERNELL #### [address] Observed: 06/15/2024 12:00 AM Status: [place] Source: [facility] ----- ------- Specimen: [id number] Received: 06/16/24 Status: JEFFERY More Num: [id number] Spec Type: Impression Subm Dr: Tri Ag DO Tissues: PATHPER Procedures: PATHREVIEW ----- ------- Age/ Patient Sex Location Account Attending Physician ----- ------- Kathy Aparicio 83/F LABELL [id number] Tri Vasquez Marker DO ----- ------- SPEC NUM: [id number] RECD: 06/16/24 STATUS: JEFFERY MORE NUM: [id number] JESSICA: 06/15/24- DR: Tri Ag DO ENTERED: 06/16/[address]: Angi Restrepo SPEC TYPE: Impression DEPT: ZOE Lance ENTERED BY: [id number] RECV BY: [id number] ORDERED: PATHREVIEW ORDERED: PATHREVIEW Pathologist Review Peripheral blood smear evaluation: - Severe lymphocytosis with atypical lymphocytes and smudges consistent with CLL, flow cytometry if clinically indicated. - Red blood cell and Platelet: Unremarkable. CPT: 70616 Jose Angel Kc MD 06/16/24 ----- ------- ----- ------- Specimen: [id number] Received: 06/16/24 Status: JEFFERY More Num: [id number] Spec Type: Impression Subm Dr: Tri Ag DO Tissues: PATHPER Procedures: PATHREVIEW ----- ------- Patient: Kathy Aparicio [id number] (Continued) ----- ------- Signed (signature on file) Jose Angel Kc MD 06/16/24 1635 PROGRESS Observed: 06/08/2024 1:05 PM Status: COMPLETED Source: [facility] HNO ID: [id number] Author: YOUNG HERRERA LPN Service: ? Author Type: LICENSED NURSE Type: Progress Notes Filed: 06/08/2024 13:05 Note Text: Eye exam for Plaquenil toxicity received from [facility] . Exam date was 06/07/2024. Exam shows no signs of Plaquenil toxicity. Forms sent for scanning. XR KNEE LT 4V* Observed: 05/26/2024 4:53 PM Status: COMPLETED Source: [facility] [address] XRay Report Signed Patient: Kathy Aparicio MR#: [id number] : 1940 Acct:[id number] Age/Sex: 83 / F ADM Date: 05/26/24 Loc: XD Room: Type: [facility] Attending Dr: Ayanna Vicente DO Copies to: Ayanna Vicente DO Ordering Provider: Ayanna Vicente DO Date of Service: 05/26/24 XR/XR hip LT min 2V(w/wo pelvis)*: M25.552 - Pain in left hip ([id number]) XR/XR knee LT 4V*: M25.552 - Pain [...] Stanford Arndt M.D.05/26/2024 4:55 PM Dictation Location: [place] [address] Transcribed By: [facility] 05/26/241654 Dictated By: Stanford Arndt DO 05/26/241652 Signed By: <Electronically signed by Stanford Arndt DO in OV> 05/26/241654 COMP METAB 2000 PNL SERPL Collected: 2:20 PM Status: F Source: [facility] Order Comment: Specimen Type : BLOOD SPECIMEN Ordering Facility: [facility] Address: [address] [place] [address] TYPE CODE TESTS RESULT OUT OF RANGE REFERENCE UNITS LAB 2885-2(LOINC) Prot SerPl-mCnc 6.9 6.3-8.0 g/dL LAB 1751-7(LOINC) Albumin SerPl-mCnc 4.1 3.9-4.9 g/dL LAB 87967-2(LOINC) Calcium SerPl-mCnc 9.3 8.5-10.2 mg/dL LAB 1975-2(LOINC) Bilirub SerPl-mCnc 0.2 0.2-1.3 mg/dL LAB 6768-6(LOINC) ALP SerPl-cCnc 107 34-123 U/L LAB 1920-8(LOINC) AST SerPl-cCnc 23 13-35 U/L LAB 1742-6(LOINC) ALT SerPl-cCnc 21 7-38 U/L LAB 2345-7(LOINC) Glucose SerPl-mCnc 231 High 74-99 mg/dL Result Comment: The [place] Diabetes Association (ADA) provides guidance for cutoff [...] Standards of Medical Care in Diabetes 2016, [place] [employer]. Diabetes Care. 2016.39(Suppl 1). LAB 3094-0(LOINC) BUN SerPl-mCnc 36 High 7-21 mg/ dL LAB 2160-0(LOINC) Creat SerPl-mCnc 1.20 High 0.58-0.96 mg/dL LAB 2951-2(LOINC) Sodium SerPl-sCnc 142 136-144 mmol/L LAB 2823-3(LOINC) Potassium SerPl-sCnc 5.3 High 3.7-5.1 mmol/L LAB 2075-0(LOINC) Chloride SerPl-sCnc 105 98-107 mmol/L LAB 2028-9(LOINC) CO2 SerPl-sCnc 26 22-30 mmo l/L LAB 90944-7(LOINC) Anion Gap SerPl-sCnc 11 8-15 mmol/L LAB 09480-6(LOINC) Creatinine + eGFR Pnl SerPlBld 46 Low >=60 mL/min/1 .73m??? Result Comment: Estimated Gl omerular Filtration Rate (eGFR) is calculated using the 2020 CKD-EPI creatinine equation. This equation utilizes serum creatinine, sex, and age as parameters. The creatinine assay has traceable calibration to isotope dilution-mass spectrometry. Refer to KDIGO guidelines for clinical interpretation. In patients with unstable renal function, e.g. those with acute kidney injury, the eGFR may not accurately reflect actual GFR. Performed By: #### 2532-0, 2 432-8 #### [facility] CLIA [id number] [address] [place] [address] LDH SERPL-CCNC Collected: 05/26/2024 2:20 PM Status: F Source: [facility] Order Comment: Specimen Type : BLOOD SPECIMEN Ordering Facility: [facility] Address: [address] [place], [place] [id number] TYPE CODE TESTS RESULT OUT OF RANGE REFERENCE UNITS LAB 2532-0(LOINC) LDH SerPl-cCnc 184 135-214 U/L Performed By: #### 2532-0, 2 432-8 #### [facility] CLIA [id number] [address] [place] [address] CBC W AUTO DIFF BLD Collected: 05/26/2024 2:[address] atus: F Source: [facility] Order Comment: Specimen Type : BLOOD SPECIMEN Ordering Facility: [facility] Address: [address] [place] [address] TYPE CODE TESTS RESULT OUT OF RANGE REFERENCE UNITS LAB 6690-2(LOINC) WBC # Bld Auto 19.22 High 3.70-11.00 k/uL Result Comment: No clot dete cted.Results checked and verified. LAB 789-8(LOINC) RBC # Bld Auto 4.23 3.90-5.20 m/ uL LAB 718-7(LOINC) Hgb Bld-mCnc 12.7 11.5-15.5 g/dL LAB 4544-3(LOINC) Hct VFr Bld Auto 38.4 36.0-46.0 % LAB 787-2(LOINC) MCV RBC Auto 90.8 80.0-100.0 fL LAB 785-6(LOINC) MCH RBC Qn Auto 30.0 26.0-34.0 p g LAB 786-4(LOINC) MCHC RBC Auto-mCnc 33.1 30.5-36.0 g/dL LAB 75889-7(LOINC ) RDW RBC-Rto 14.2 11.5-15.0 % LAB 777-3(LOINC) Platelet # Bld Auto 244 150-400 k/uL LAB 01702-0(LOINC ) PMV Bld Auto 10.4 9.0-12.7 fL LAB 34426-9(LOINC ) nRBC/100 WBC Bld-Rto 0.0 /100 WBC LAB 771-6(LOINC) nRBC # Bld Auto <0.01 <0.01 k/u L LAB 770-8(LOINC) Neutrophils/leuk NFr Bld Auto 22.0 % LAB 751-8(LOINC) Neutrophils # Bld Auto 4.23 1.45-7.50 k/uL LAB 736-9(LOINC) Lymphocytes/leuk NFr Bld Auto 76.0 % LAB 731-0(LOINC) Lymphocytes # Bld Auto 14.61 High 1.00-4.00 k/uL LAB 5905-5(LOINC) Monocytes/leuk NFr Bld Auto 1.0 % LAB 742-7(LOINC) Monocytes # Bld Auto 0.19 <0.87 k/uL LAB 713-8(LOINC) Eosinophil/leuk NFr Bld Auto 1.0 % LAB 711-2(LOINC) Eosinophil # Bld Auto 0.19 <0.46 k/uL LAB 706-2(LOINC) Basophils/leuk NFr Bld Auto 0.0 % LAB 704-7(LOINC) Basophils # Bld Auto 0.00 <0.11 k/uL LAB 05367-2(LOINC ) Platelet # Bld Est Adequate LAB RBCMORBEAKER1 RED CELL MORPH Reviewed: se e results of individual morphologies LAB 10258-7(INC ) Polychromasia Bld Ql Smear Slight LAB 774-0(LOINC) Ovalocytes Bld Ql Smear Few LAB 46791-6(LOINC ) Differential method Bld Manual Performed By: #### 07676-7 # ### [facility] CLIA [id number] [address] [place] [address] [facility] CLIA [id number] [address] [address] [place] Observed: 05/26/2024 2:00 PM Status: COMPLETED Source: [facility] Visit (SP) Office ([place]) KATHY APARICIO ([id number]) 1940 F Date Time Provider Department 05/26/24 2:00 PM CHAD FREITAS During your visit today, we recorded the following information about you: Temperature Pulse Respiration Blood pressure 97 degrees 70/minute 16/minute 92/51 Weight Height 105.3 kg 1.727 m Chad Freitas MD 05/26/2024 2:41 PM Signed PATIENT NAME: Kathy Aparicio CLINIC NO.: [id number] ATTENDING PHYSICIAN: Chad Freitas MD DATE OF SERVICE: 05/25/24 Some of the elements of this note have been copied from previous progress note dated 08/08/23. All the information has been reviewed carefully. Diagnosis: Binet Stage A CLL Treatment History: HPI: Kathy Aparicio is a 83 year old year old female here for follow up. Doing very well and denies any fevers and or chills. He is going in a cruise with his son 05/25/24: - Doing well - No major complaints - C/o night sweats - Did mammogram last week at [facility]. - Scheduled to see National Account Representative PAST MEDICAL HISTORY Diagnosis Date Depression Diabetes [...] Range Status 08/08/2023 2.0 % Final Abs Sandoval Date Value Ref Range Status 08/08/2023 0.39 [...] chronic lymphocytic leukemia/small lymphocytic lymphoma (CLL/SLL). Imaging: [facility] 08/2022: Assessment and Plan: Kathy Aparicio is a 83 year old year old [...] do not hesitate to contact me at [phone]. Chad Freitas MD Hematology/Medical Oncology [facility] I spent a total of 20 minutes on the date of the service which included preparing to see the patient, [id number] patient care, completing clinical documentation, obtaining and/or reviewing separately obtained history, counseling and educating the patient/family/caregiver, and ordering medications, tests, or procedures. CC: DO Zena Resendiz Adarsh, MD 05/26/2024 2:09 PM Signed Labs today F/u in 6 months Referring Provider: FRANCINE TELLO [[id number]] Allergies As of Date: 05/26/2024 Noted Allergy Reaction CEPHALOSPORINS 02/20/2004 4 - Hives 7 - Swelling VANTIN (CEFPODOXIME) 04/03/2022 16 - Unknown Date Reviewed: 05/26/2024 Reviewed by: Lluvia Samuel MA - Fully Assessed Reason for Visit: Leukemia [559] Transition Of Care [4074] Primary Visit Diagnosis:CLL (chronic lymphocytic leukemia) (HCC) [C91.10] Order(s):COMPLETE BLOOD COUNT AND DIFFERENTIAL [SQCBCDIF] Order #: [id number] FUTURE COMPREHENSIVE METABOLIC PANEL [SQCMP] Order #: [id number] FUTURE LACTATE DEHYDROGENASE [SQLD6] Order #: [id number] FUTURE Level of Service: OFFICE/OUTPATIENT ESTABLISHED LOW MDM 20 MIN [25353] Additional E/M codes: VISIT CPLX INHERENT EANDM ASSOC WITH MED * Disposition: Return in about 6 months (around 11/23/2024). Follow-up and Disposition History for Encounter Date Provider Department Center 05/26/2024 [id number], [facility]*[place] [facility] Prescriptions as of 05/26/2024 - hydrOXYchloroQUINE (PLAQUENIL) 200 mg tablet Take 2 tablets by mouth once daily. - venlafaxine ER (EFFEXOR XR) 75 mg 24 hr capsule Take 75 mg by mouth once daily. - insulin glargine (LANTUS) 100 unit/mL injection Inject subcutaneously. 21 units - LYRICA 225 mg ORAL capsule Take 225 mg by mouth twice daily. - OXYCODONE-ACETAMINOPHEN 5-325 mg ORAL tablet as needed. - [...] tablet daily. Problem List As Of Date 05/26/2024 Noted Resolved Knee pain [M25.569] 07/24/2011 Other instructions from your clinician: Labs today F/u in 6 months Encounter Status:Closed by CHAD FREITAS on 05/26/24 PROGRESS Observed: 05/26/2024 2:00 PM Status: COMPLETED Source: [facility] ID: [id number] Author: CHAD FREITAS MD Service: ? Author Type: Physician Type: Progress Notes Filed: 05/26/2024 14:41 Note Text: PATIENT NAME: Kathy Aparicio CLINIC NO.: [id number] ATTENDING PHYSICIAN: Chad Freitas MD DATE OF SERVICE: 05/25/24 Some of the elements of this note have been copied from previous progress note dated 08/08/23. All the information has been reviewed carefully. Diagnosis: Binet Stage A CLL Treatment History: HPI: Kathy Aparicio is a 83 year old year old female here for follow up. Doing very well and denies any fevers and or chills. He is going in a cruise with his son 05/25/24: - Doing well - No major complaints - C/o night sweats - Did mammogram last week at [facility]. - Scheduled to see National Account Representative PAST MEDICAL HISTORY Diagnosis Date Depression Diabetes [...] Range Status 08/08/2023 2.0 % Final Abs Sandoval Date Value Ref Range Status 08/08/2023 0.39 [...] chronic lymphocytic leukemia/small lymphocytic lymphoma (CLL/SLL). Imaging: [facility] 08/2022: Assessment and Plan: Kathy Aparicio is a 83 year old year old [...] do not hesitate to contact me at [phone]. Chad Freitas MD Hematology/Medical Oncology [facility] Jackson spent a total of 20 minutes on the date of the service which included preparing to see the patient, [id number] patient care, completing clinical documentation, obtaining and/or reviewing separately obtained history, counseling and educating the patient/family/caregiver, and ordering medications, tests, or procedures. CC: Ayanna Vicente DO MM SCREENING MAMMO BI W/CAD Observed: 05/18/2024 2:59 PM Status: COMPLETED Source: [facility] [place] [address] Mammography Report Signed Patient: Kathy Aparicio MR#: [id number] : 1940 Acct:[id number] Age/Sex: 83 / F ADM Date: 05/18/24 Loc: [place] Room: Type: [facility] Attending Dr: Ayanna Vicente DO Copies to: [...] Stanford Arndt M.D.05/18/2024 3:23 PM Dictation Location: [facility] Transcribed By: STAS 05/18/24 152 Dictated By: Stanford Arndt DO 05/18/24 1459 Signed By: <Electronically signed by Stanford Arndt DO in OV> 05/18/24 152 CNOV Observed: 05/17/2024 1:00 PM Status: COMPLETED Source: [facility] Office Visit (RHEUAV) KTAHY APARICIO ([id number]) 1940 F Date Time Provider Department 05/17/24 1:00 PM ZOHAIB MORROW During your visit today, we recorded the following information about you: Pulse Blood pressure Weight Height 62/minute 117/75 103.4 kg 1.727 m Zohaib Morrow MD 05/17/2024 1:34 PM Signed Rheumatology Outpatient Clinic Date of Service: 05/17/2024 Patient: Kathy Aparicio Medical Record: [id number] Primary Care Physician: Ayanna Vicente DO Last Rheumatology visit: None at [facility] Referring Provider: No referring provider defined for this encounter. History of Present Illness Kathy Aparicio is a 83 year old White female [...] resulted procedures found. Labs Latest Ref Rng AND Units 08/08/2023 02/07/2023 07/19/2022 04/04/2022 CBC WBC [...] 13.41 12.31 11.45 9.37 Latest Ref Rng AND Units 08/08/2023 02/07/2023 07/19/2022 CMP Sodium 136 [...] U/L 121 119 115 Latest Ref Rng AND Units 02/20/2004 ESR, WSR WSR 0 - 30 mm/Hr 5 Latest Ref Rng AND Units 02/20/2004 CRP CRP 0.0 - 2.0 mg/dL 0.7 Latest Ref Rng AND Units 04/04/2022 Hepatitis Screen Hep B Core [...] Reviewed on 07/19/2022 Name Date COVID-19 vaccine ([employer]) 03/19/2024, 06/23/2023 COVID-19 vaccine, bivalent ([employer]) 04/18/2022 COVID-19 vaccine, monovalent ([employer]) 06/01/2021, 09/01/2020, 08/11/2020 Physical Exam GENERAL APPEARANCE: Well groomed. Alert and oriented x 3. In no distress. VITAL SIGNS: BP 117/75 Pulse 62 Ht 5' 7.992 (1.73m) Wt 227 lb 15.3 oz (103.4kg) BMI 34.67 kg/(m2). SKIN: No rash, thickening, nodules, discoloration. EYES: [...] use of insulin ([facility]) Plan Orders this visit: [...] which included preparing to see the patient, zpit-df-vibj patient care, completing clinical documentation, obtaining and/or reviewing separately obtained history, performing a medically appropriate examination, counseling and educating the patient/family/caregiver, and ordering medications, tests, or procedures. 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 - venlafaxine ER (EFFEXOR XR) 75 mg 24 hr capsule Take 75 mg by mouth once daily. - insulin glargine (LANTUS) 100 unit/mL injection Inject subcutaneously. 21 units - LYRICA 225 mg ORAL capsule Take 225 mg by mouth twice daily. - OXYCODONE-ACETAMINOPHEN 5-325 mg ORAL tablet as needed. - [...] tablet daily. Problem List As Of Date 05/17/2024 Noted Resolved Knee pain [M25.569] 07/24/2011 Prescriptions ordered this encounter Disp Refills Start End HYDROXYCHLOROQUINE 200 MG TABLET 180 * 3 05/17/2024 05/12/2025 Route: ORAL Sig: Take 2 tablets by mouth once daily. Medications Discontinued During This Encounter Prescriptions - hydrOXYchloroQUINE (PLAQUENIL) 200 mg tablet (Discontinued) Reported on 05/17/2024 Disposition: Return in about 6 months (around 11/14/2024). Follow-up and Disposition History for Encounter Date Provider Department Center 05/17/2024 [id number] MORROW RHEUAV Rej Annotated image of Homunculus image last updated by Zohaib Morrow MD on 05/17/2024 1:34 PM Letter Text Encounter Status:Closed by ZOHAIB MORROW on 05/17/24 PROGRESS Observed: 05/17/2024 12:56 PM Status: COMPLETED Source: [facility] HNO ID: [id number] Author: ZOHAIB MORROW MD Service: ? Author Type: Physician Type: Progress Notes Filed: 05/17/2024 13:34 Note Text: Rheumatology Outpatient Clinic Date of Service: 05/17/2024 Patient: Kathy Aparicio Medical Record: [id number] Primary Care Physician: Ayanna Vicente DO Last Rheumatology visit: None at [facility] Referring Provider: No referring provider defined for this encounter. History of Present Illness Kathy Aparicio is a 83 year old White female [...] resulted procedures found. Labs Latest Ref Rng AND Units 08/08/2023 02/07/2023 07/19/2022 04/04/2022 CBC WBC [...] 13.41 12.31 11.45 9.37 Latest Ref Rng AND Units 08/08/2023 02/07/2023 07/19/2022 CMP Sodium 136 [...] U/L 121 119 115 Latest Ref Rng AND Units 02/20/2004 ESR, WSR WSR 0 - 30 mm/Hr 5 Latest Ref Rng AND Units 02/20/2004 CRP CRP 0.0 - 2.0 mg/dL 0.7 Latest Ref Rng AND Units 04/04/2022 Hepatitis Screen Hep B Core [...] Reviewed on 07/19/2022 Name Date COVID-19 vaccine ([employer]) 03/19/2024, 06/23/2023 COVID-19 vaccine, bivalent ([employer]) 04/18/2022 COVID-19 vaccine, monovalent ([employer]) 06/01/2021, 09/01/2020, 08/11/2020 Physical Exam GENERAL APPEARANCE: Well groomed. Alert and oriented x 3. In no distress. VITAL SIGNS: BP 117/75 Pulse 62 Ht 5' 7.992 (1.73m) Wt 227 lb 15.3 oz (103.4kg) BMI 34.67 kg/(m2). SKIN: No rash, thickening, nodules, discoloration. EYES: [...] use of insulin ([facility]) Plan Orders this visit: [...] which included preparing to see the patient, xuct-sl-[id number] patient care, completing clinical documentation, obtaining and/or reviewing separately obtained history, performing a medically appropriate examination, counseling and educating the patient/family/caregiver, and ordering medications, tests, or procedures. Medical Decision Making: Problems: Moderate: 1+ chronic illnesses with change and New problem with uncertain prognosis Risk: High: High risk from testing/treatment Medical Decision Making Level: 4 - Moderate Zohaib Morrow MD Rheumatology Date: May 17, 2024 Time: 12:56 PM DIPSTICK AND MICROSCOPIC Collected: 12:31 PM Status: F Source: [facility] Order Comment: Name Collecti on Type:: Clean-Voided Midstream TYPE CODE TESTS RESULT OUT OF RANGE REFERENCE UNITS LAB UCOL Color,Urine Yellow Yellow LAB UAPP Appearance,Uri ne Clear Clear LAB USG Specificy [place],Urine 1.020 Normal 1.001-1.030 LAB UPH pH,Urine 5.5 Normal 5.0-9.0 LAB ULE Leukocyte Esterase,Urine 2+ High Negative LAB UNIT Nitrite,Urine Negative Negative LAB UPRO Protein,Urine Trace High Negative LAB UGL Glucose,Urine (UA) Normal Normal LAB UKET Ketones,Urine Negative Negative LAB UURO Urobilinogen,U rine Normal Normal LAB UBIL Bilirubin,Urin e Negative Negative LAB UBLD Occult Blood,Urine Negative Negative LAB URBC RBC,Urine 0-1 0-4 LAB UWBC WBC,Urine 10-19 High 0-4 LAB USQEPI Squamous Epithelial Cell,Urine 3-4 High 0-2 LAB UBACT Bacteria,Urine 4+ High None Seen LAB UHYALC Hyaline Casts,Urine 5-9 High 0-1 Result Comment: PERFORMED BY : [place] [address] PATHOLOGIST PORTRAIT PHOTOGRAPHER MATHIEU RASCON M.D. Performed By: #### LIPID, A1 C WTH eA, T4F, URMACRERAT, TSH3, CUU, CMP, ADDONUAPLUS, T3T #### [place] [id number] [facility] MICROALB CREAT RATIO,U Collected: 05/06 12:31 PM Status: F Source: [facility] TYPE CODE TESTS RESULT OUT OF RANGE REFERENCE UNITS LAB UMAT Microalbumin , Urine 1.6 Normal 0.0-1.8 mg/dL LAB UCREA Creatinine, Urine (Random) 93.00 mg/dL Result Comment: No reference range established LAB MACREATRATIO Microalbumin /Creatinine Ratio 17.2 Normal 0.0-30.0 mg/g Result Comment: 30-300 mg/g indicates an increased risk for diabetic nephropathy. Greater than 300 mg/g is consistent with clinical nephropathy. (Am. J. Kidney Disease 1994, 25:107) PERFORMED BY: [place] [address] PATHOLOGIST PORTRAIT PHOTOGRAPHER MATHIEU RASCON M.D. Performed By: #### LIPID, A1 C WTH eA, T4F, URMACRERAT, TSH3, CUU, CMP, ADDONUAPLUS, T3T #### [place] [id number] [facility] COMPREHENSIVE METABOLIC PANEL Collected: 05/06/2024 1 2:31 PM Status: F Source: [facility] TYPE CODE TESTS RESULT OUT OF RANGE REFERENCE UNITS LAB GLU Glucose 129 High 70-100 mg/dL Result Comment: Random Gluco se Reference Range is dependent on time and content of last meal. Glucose of more than 200 mg/dL in a nonstressed, ambulatory subject supports the diagnosis of Diabetes Mellitus. ADA recommended reference range LAB BUN Blood Urea Nitrogen 29 High 7-25 mg/d L LAB CREATT Creatinine 1.08 Normal 0.60-1.20 mg/dL LAB GFReNR Estimated GFR 51.605 LAB NA Sodium 141 Normal 136-145 mmol/L LAB K Potassium 5.1 Normal 3.5-5.1 mmol/L LAB CL Chloride 105 Normal 98-107 mmol/L LAB CO2 Carbon Dioxide 30.2 Normal 21.0-31.0 mmol/L LAB GAP Anion Gap 10.9 Normal 6.0-15.0 LAB CA Calcium 9.6 Normal 8.6-10.3 mg/dL LAB TP Total Protein 6.8 Normal 6.4-8.9 g/dL LAB ALB Albumin Level 4.1 Normal 3.5-5.7 g/dL LAB GLOB Globulin 2.7 g/dL LAB AGRATIO Albumin/Globulin Ratio 1.5 LAB BILIT Bilirubin,Total 0.4 Normal 0.3-1.0 mg/dL LAB AST Aspartate Amino Transferase 23 Normal 13-39 U/L LAB ALT Alanine Aminotransferase 25 Normal 7-52 U/L LAB ALP Alkaline Phosphatase 89 Normal 34-104 U/L Performed By: #### LIPID, A1 C WTH eA, T4F, URMACRERAT, TSH3, CUU, CMP, ADDONUAPLUS, T3T #### [facility] [address] [place] [address] [facility] LIPID PANEL Collected: 05/06/2024 12:31 PM Status: F Source: [facility] TYPE CODE TESTS RESULT OUT OF RANGE REFERENCE UNITS LAB CHOL Cholesterol 134 Low 140-200 mg/dL Result Comment: Chol less th an 200 mg/dl low risk Chol 201-239 mg/dl borderline risk Chol 240 mg/dl and greater high risk LAB HDL HDL Cholesterol 41 Normal 23-92 mg/dL Result Comment: HDL CHOL ATP -III CLASSIFICATION Cardiovascular Risk HDL > or equal to 60 mg/dL LOW HDL < 40 mg/dL HIGH LAB TRIG W REF Triglyceride w/Reflex 235 High 0-149 mg/dL Result Comment: TRIG ATP III CLASSIFICATION TRIG less than 150 mg/dL Normal TRIG 150-199 mg/dL Borderline high TRIG 200-500 mg/dL High TRIG greater than 500 mg/dL Very high Standard traceable to the Center for Disease Conrtrol and Prevention (CDC) test method. LAB LDLC LDL Cholesterol,Calc ulated 46 Normal 0-100 mg/dL Result Comment: LDL ATP III CLASSIFICATION LDL less than 100 mg/dL Optimal LDL 100-129 mg/dL Near or above optimal LDL 130-159 mg/dL Borderline high LDL 160-189 mg/dL High LDL greater than 189 mg/dL Very high LAB VLDL VLDL CHOLESTEROL 47 mg/dL LAB CHLHDL Chol/HDL Ratio 3.3 <5.0 Performed By: #### LIPID, A1 C WTH eA, T4F, URMACRERAT, TSH3, CUU, CMP, ADDONUAPLUS, T3T #### [address] FREE T4 (FREE THYROXINE) Collected: 12:31 PM Status: F Source: [facility] TYPE CODE TESTS RESULT OUT OF RANGE REFERENCE UNITS LAB T4F Free T4 (Free Thyroxine) 0.94 Normal 0.61-1.12 ng/dL Performed By: #### LIPID, A1 C WTH eA, T4F, URMACRERAT, TSH3, CUU, CMP, ADDONUAPLUS, T3T #### [place] [id number] [facility] TRIIODOTHYRONINE (T3) TOTAL Collected: 05/06/2024 12: 31 PM Status: F Source: [facility] TYPE CODE TESTS RESULT OUT OF RANGE REFERENCE UNITS LAB T3T Triiodothyronine (T3) Total 0.89 Normal 0.87-1.78 ng/mL Performed By: #### LIPID, A1 C WTH eA, T4F, URMACRERAT, TSH3, CUU, CMP, ADDONUAPLUS, T3T #### [place] [id number] [facility] THYROID STIMULATING HORMONE Collected: 05/06/2024 12:31 PM Status: F Source: [facility] TYPE CODE TESTS RESULT OUT OF RANGE REFERENCE UNITS LAB TSH3 Thyroid Stimulating Hormone 1.93 Normal 0.45-5.33 u[iU]/mL Result Comment: PERFORMED BY : [place] [address] PATHOLOGIST PORTRAIT PHOTOGRAPHER MATHIEU RASCON M.D. Performed By: #### LIPID, A1 C WTH eA, T4F, URMACRERAT, TSH3, CUU, CMP, ADDONUAPLUS, T3T #### [address] URINE CULTURE Observed: 05/06/2024 12:31 PM Status: F Source: [facility] ORGANISM: Klebsiella variico la (O:KLEVAR) [place] Count >100,000 Aerobic CORNELIA Charge (NMIC56) SUSCEPTIBILITY ORGANISM: O:KLEVAR ANTIBIOTIC INTERPRETATION CORNELIA Amikacin S <16 Amoxacillin/K Clavulanate S <8 Ampicillin/Sulbactam S <4 Aztreonam S <4 Cefazolin S <2 Cefepime S <2 Ceftazidime S <1 Ceftriaxone S <1 Cefuroxime S <4 Ciprofloxacin S <0.25 Ertapenem S <0.5 Gentamicin S <2 Levofloxacin S <0.5 Meropenem S <1 Nitrofurantoin S <32 Piperacillin/Tazobactam S <8 Tetracycline S <4 Tigecycline S <2 Tobramycin S <2 Trimethoprim/Sulfamethoxazole S <0.5 S = SUSCEPTIBLE I = [...] RESISTANT TO ALL B-LACTAM DRUGS. PERFORMED BY: [place] [address] PATHOLOGIST PORTRAIT PHOTOGRAPHER MATHIEU RASCON M.D. Performed By: #### LIPID, A1 C WTH eA, T4F, URMACRERAT, TSH3, CUU, CMP, ADDONUAPLUS, T3T #### [facility] [address] [id number] [facility] A1C WITH ESTIMATED AVERAGE GLU Collected: 05/06/2024 12:31 PM Status: F Source: [facility] TYPE CODE TESTS RESULT OUT OF RANGE REFERENCE UNITS LAB .A1C Hemoglobin A1C 8.4 High 4.3-5.6 % Result Comment: Increased ri sk for diabetes: 5.7 - 6.4 diabetes: >6.4 glycemic control for adults with diabetes: <7.0 LAB eAG Estimated Average Glucose 194 mg/dL Result Comment: PERFORMED BY : [place] [id number] PATHOLOGIST PORTRAIT PHOTOGRAPHER MATHIEU RASCON M.D. Performed By: #### LIPID, A1 C WTH eA, T4F, URMACRERAT, TSH3, CUU, CMP, ADDONUAPLUS, T3T #### [place] [id number] [facility] AMBULATORY VISIT SUMMARY Observed: 02/23 10:44 AM Status: F Source: [facility] Ambulatory Visit Summary KATHY APARICIO :1940 Visit Date:02/24/2024 Ambulatory Visit Instructions Your Diagnosis Overactive bladder Mixed incontinence Recurrent UTI Your Care Team Attending Physician - SUSAN CAMARA PA-C Primary Care Physician - Ayanna Vicente DO This Is Your Medications List acetaminophen-oxycodone (acetaminophen-oxycodone 325 mg-5 mg oral tablet) aspirin (aspirin 81 mg Oral EC Tab) atorvastatin (Lipitor 20 mg Tab) ciprofloxacin (Cipro 500 mg Tab) citalopram (CeleXA 40 mg Tab) ezetimibe (Zetia 10 mg Tab) furosemide (Lasix 20 mg Tab) hydrochlorothiazide-triamterene (Maxzide-25 oral tablet) hydroxychloroquine (Plaquenil) insulin glargine [...] 6 mos (no labs) Where: [address] [place] [address] [id number] Medications What How Much When Why Instructions Unchanged acetaminophen-oxycodone (acetaminophen-oxycodone 325 mg-5 mg oral tablet) By Mouth [...] 1 Tablets By Mouth Every day Unchanged hydrochlorothiazide-triamterene (Maxzide-25 oral tablet) 0.5 Tablets By Mouth [...] health care provider. General instructions ? Take pqop-htb-wgaizfi and prescription medicines only as told by [...] your health care provider monitor your condition. ? Keep all follow-up visits. This is important. Contact a health care provider if: ? You have a fever or chills. ? Your symptoms do not get better with treatment. ? Your pain and discomfort get worse. ? You have more frequent urges to urinate. Get help right away if: ? You are not able to control your bladder. Summary ? Overactive bladder refers to a condition in which a person has a sudden and frequent need to urinate. ? Several conditions may lead to an overactive bladder. ? Treatment for overactive bladder depends on the cause and severity of your condition. ? Making lifestyle changes, doing Kegel exercises, keeping a log, and taking medicines can help with this condition. This information is not intended to replace advice given to you by your health care provider. Make sure you discuss any questions you have with your health care provider. Document Revised: 03/19/2021 Document Reviewed: 03/19/2021 [employer] Patient Education ? 2022 [employer] REMINDERS Observed: 02/24/2024 10:44 AM Status: C Source: [facility] Reminders From: Lori Bledsoe To: EU - Administrative; Sent: 02/24/2024 10:44:10 EDT Show up: 06/25/2024 09:43:00 EST Subject: 6 MO F/U Due Date/Time: 08/26/2024 09:43:00 EST Reminder/Recall PT SEEN ON 02/24/2024 BY JINNY IN [place]. PT WILL NEED A 6 MO F/U. APPT DUE BY 08/26/2024 NO ANSWER Pt is scheduled for 02/14/25. UROLOGY OFFICE/CLINIC NOTE Observed: 10:43 AM Status: F Source: [facility] Urology Office/Clinic Note Chief Complaint 1 year [...] (N32.81: Overactive bladder) S/p Botox 100u 08/30/21. -[place] sxs only improved for a few weeks [...] Contact Information JAX BECKMAN, SUSAN Miller, URL [address] [place] [address] [phone] Additional Instructions: 6 mos (no labs) Patient Education Overactive Bladder, Adult Documentation recorded by the scribliseth Ospina accurately reflects the services(s) I performed and decisions made by me. Authenticated by Susan Camara PA-C on 02/24/2024 10:52:41. I, Sarah Ospina, personally scribed for Susan Camara PA-C on 02/24/2024 10:43:38. . Problem List/Past [...] hernia repair, History of hernia repair. Medications acetaminophen-oxycodone 325 mg-5 mg oral tablet, Oral, q6hr Ambien 10 mg Tab, 10 mg= 1 tab(s), Oral, Once a day (at bedtime), PRN aspirin 81 mg Oral EC Tab, Oral, Daily CeleXA 40 mg Tab, 40 mg= 1 tab(s), Oral, Daily Cipro 500 mg Tab, See Instructions, 3 refills, Not taking Inderal LA 60 mg Cap-ER, 60 mg= 1 cap(s), Oral, Daily Lantus Solostar Pen 100 units/mL subcutaneous solution, SubCutaneous, Daily Lasix 20 mg Tab, 20 mg= 1 tab(s), Oral, Daily Lipitor 20 mg Tab, 20 mg= 1 tab(s), Oral, Daily Lyrica 225 mg oral capsule, 225 mg= 1 cap(s), Oral, BID Maxzide-25 oral tablet, 0.5 tab(s), Oral, Daily metformin 1000 mg oral tablet, extended release, 1000 mg= 1 tab(s), Oral, BID Multivitamins and Minerals oxybutynin 5 mg Tab, See Instructions, 3 refills Plaquenil, 400 mg, Oral, Daily, Not taking Synthroid 100 mcg Tab, 100 mcg= 1 tab(s), Oral, Daily Vitamin B Complex oral capsule, Oral, Daily Zestril 10 mg Tab, 10 mg= 1 tab(s), Oral, Daily Zetia 10 mg Tab, 10 mg= 1 tab(s), Oral, Daily Allergies Vantin (Eye swelling) cephalosporins (Swelling, Eye swelling) Social History Tobacco Former smoker, quit more than 30 days ago Tobacco Use:. Cigarettes, 02/24/2024 Family History Alzheimer's disease: Father. CAD - Coronary artery disease: Father. Cancer: Mother. Dementia: Mother. Heart disease: Father. Hypertension: Father. Mental illness: Mother and Father. Parkinsons disease: Brother. Immunizations Vaccine Date Status influenza virus vaccine, inactivated 04/25/2021 Recorded SARS-CoV-2 (COVID-19) mRNA-1273 vaccine 09/01/2020 Recorded SARS-CoV-2 (COVID-19) mRNA-1273 vaccine 08/11/2020 Recorded influenza virus vaccine, inactivated 03/2020 Recorded Lab Results Ambulatory Point of Care Results Bilirubin Urine Dipstick: Negative (02/24/24 10:20:00) Blood Urine Dipstick: Negative (02/24/24 10:20:00) Glucose Urine Dipstick: Negative (02/24/24 10:20:00) Ketones Urine Dipstick: Negative (02/24/24 10:20:00) Leukocytes Urine Dipstick: Negative (02/24/24 10:20:00) Nitrite Urine Dipstick: Negative (02/24/24 10:20:00) Protein Urine Dipstick: Negative (02/24/24 10:20:00) Specific [place] Urine Dipstick: 1.025 (02/24/24 10:20:00) Urine Appearance Urine Dipstick: Clear (02/24/24 10:20:00) Urine Color Urine Dipstick: Yellow (02/24/24 10:20:00) Urobilinogen Urine Dipstick: Normal 0.2-1 EU/dl (02/24/24 10:20:00) pH Urine Dipstick: 5.5 (02/24/24 10:20:00) Result Comment: Electronical ly Signed By: SUSAN CAMARA PA-C\.br\Date and Time Signed: 02/24/24 10:53 EDT\.br\Electronically Co-Signed By: Sarah Ospina\.br\Date and Time Co-Signed: 02/24/24 10:44 EDT\.br\Electronically Co-Signed By: Sarah Ospina\.br\Date and Time Co-Signed: 02/24/24 10:47 EDT PATIENT EDUCATION Observed: 02/24/2024 10:42 AM Status: F Source: [facility] Patient Education Obstetrics and Gynecology Overactive Bladder, [...] health care provider. General instructions ? Take ugme-bgf-mbpbxjv and prescription medicines only as told by [...] your health care provider monitor your condition. ? Keep all follow-up visits. This is important. Contact a health care provider if: ? You have a fever or chills. ? Your symptoms do not get better with treatment. ? Your pain and discomfort get worse. ? You have more frequent urges to urinate. Get help right away if: ? You are not able to control your bladder. Summary ? Overactive bladder refers to a condition in which a person has a sudden and frequent need to urinate. ? Several conditions may lead to an overactive bladder. ? Treatment for overactive bladder depends on the cause and severity of your condition. ? Making lifestyle changes, doing Kegel exercises, keeping a log, and taking medicines can help with this condition. This information is not intended to replace advice given to you by your health care provider. Make sure you discuss any questions you have with your health care provider. Document Revised: 03/19/2021 Document Reviewed: 03/19/2021 [employer] Patient Education ? 2022 [employer] ALLERGIES DATE TYPE / CODE NAME / CODE REACTION SEVERITY SOURCE 08/11/2024 Drug Allergy/4160 62753(SNOMED CT) Cephalosporins/W13641 0477(RXNORM) Swelling of Lip/Tongue/Throa t Unknown [facility] 08/11/2024 Drug Allergy/4160 94068(SNOMED CT) neomycin/V676948516(R XNORM) Unknown Reaction Unknown [facility] 08/11/2024 Drug Allergy/4160 44670(SNOMED CT) bacitracin/W303773132 (RXNORM) Unknown Reaction Unknown [facility] 08/11/2024 Drug Allergy/4160 55150(SNOMED CT) polymyxin B/K483573810(RXNORM) Unknown Reaction Unknown [facility] 04/03/2022 DRUG INGREDI/4195 86420(SNOMED CT) CEFPODOXIME UNKNOWN [facility] 02/20/2004 Drug Class/711798 003(SNOMED CT) CEPHALOSPORINS HIVES [facility] DR/160352985 (SNOMED CT) cephalosporins 260935393~842750 [address] [facility] [address]/977507646 (SNOMED CT) Vantin [id number] [facility] ENCOUNTERS ADMIT/DISCHARGE ACCOUNT NUMBER ADMITTING ENCOUNTER CLASS LOCATION SOURCE 01/12/2025/01/13/20 [id number] Ambulatory Building:[facility] 12/27/2024/12/28/19 [id number] [facility] 12/17/2024/12/18/19 25 [id number] [facility] 11/01/2024/11/02/19 25 [id number] [facility]/11/2024/10/12/19 25 [id number] [facility]/03/2024/09/03/19 25 [id number] Ayanna Vicente [facility] 08/16/2024/08/16/19 25 [id number] Ambulatory EU [facility] [facility] : CD:[id number] 08/16/2024/08/16/19 [id number] Ambulatory PM [facility]:PM [facility] 08/10/2024/08/10/19 [id number] [facility] 08/09/2024/08/09/19 [id number] Ambulatory Building:BSR NEURO [facility] 08/04/2024/08/04/19 [id number] Ambulatory Building:ST NEURO [facility] 07/26/2024/07/26/19 [id number] [facility]ulatory [facility] 07/12/2024/07/12/20 24 [id number] Ambulatory PM [facility] [facility] 06/28/2024/06/28/20 24 [id number] Ambulatory Building:ST NEURO [facility] 06/23/2024/06/23/20 24 [id number] Ambulatory Building:NOM S [facility] 06/17/2024/06/17/20 24 [id number] Ambulatory Building:BSR NEURO [facility] 06/15/2024/06/15/20 24 [id number] [facility] 06/14/2024/06/14/20 24 [id number] Ambulatory PM [facility]:PM [facility] 06/07/2024/06/07/20 24 [id number] Ambulatory PM [facility]:PM [facility] 05/26/2024/05/26/20 24 [id number] [facility] 05/26/2024/05/26/20 24 [id number] [facility] 05/26/2024/05/26/20 24 [id number] [facility]ESUS [facility] 05/18/2024/05/18/20 24 [id number] [facility] 05/17/2024/05/17/20 [id number] [facility]ulatory [facility]EVER[facility] 05/06/2024/05/06/20 [id number] [facility]ente [facility] 02/24/2024/02/24/20 [id number] Ambulatory EU [facility]:EU Jose RafaelueRoom : Exam 1 [facility] 02/03/2024/02/03/20 [id number] Ambulatory Building:NOM S [facility] PAYERS ENCOUNTER GUARANTOR PAYER SUBSCRIBER SOURCE 01/12/2025 KATHY SALAS: [place] [address]Gty: () Primary Insurance:MEDICAREPolic y Number: [id number] Date:4580-24-69Jser Name:Medicare KATHY L SIMONE: [id number] [facility] [place] [address] [facility] 01/12/2025 Secondary Insurance:AARPPolicy Number: [id number] Date:2022-07-14 KATHY SALAS: [id number] [place] [address] [facility] 12/27/2024 Kathy AshB: [place] [address] Primary Insurance:MedicarePolic y Number: Effective Date:8791-28-32Xpnv Name:MEDPO [address]31Yxz[place]wuu, [place] [address]XH: Kathy Salas: [id number] [place] [address] [facility] 12/27/2024 Secondary Insurance:AARPPolicy Number: Effective Date:2967-00-34Idkj Name:COMP [address], [place] [address]FZ: Kathy AparicioDOB: [id number] [address] [facility] 12/17/2024 Primary Insurance:MEDICARE A AND BPolicy Number: [id number] Date:1828-30-18Ojal Name:P KATHY ASHB: [id number] [facility], [address] 12/17/2024 Secondary Insura nce:[facility] AARP SUPPLEMENTPolicy Number: [id number] Date:2484-88-35Oigz Name:Joslyn ASHB: [id number] [facility] 11/01/2024 Kathy AparicioDOB: [facility], [facility] Primary Insurance:MedicarePolic y Number: Effective Date:9992-67-51Etqq Name:MED [address] [address]YO: Kathy AparicioDOB: [id number] [address] [facility] 11/01/2024 Secondary Insurance:AARPPolicy Number: Effective Date:6920-80-79Taxj Name:[facility] [address]pfx, [place] [address]KX: Kathy NoellyDOB: [id number] [place] [address] [facility] 10/11/2024 Kathy NoellyDOB: [place] [address] Primary Insurance:MedicarePolic y Number: Effective Date:9490-60-33Mpyw Name:[address]PO [address]Xyurvg[place] [address]MS: Kathy AparicioDOB: [id number] [facility] [place] [address] [facility] 10/11/2024 Secondary Insurance:AARPPolicy Number: Effective Date:7976-20-13Bjjt Name:[address]bm[place] [address]BA: Kathy AshB: [id number] [place] [address] [facility] 09/03/2024 Kathy Case [facility] [place] [address]Cdh: (HP) Primary Insurance:Self PayPolicy Number: Effective Date:2024-09-03 [facility] 08/16/2024 KATHY ASHB: [address]Tel: ~ ~( 41 (HP) Primary Insurance:MEDICAREPolic y Number: [id number] Date:1016-71-69[address] [address]EERASETVP, [place] [address]EV: KATH[facility] APARIC[facility] 08/16/2024 Secondary Insurance:AARPPolicy Number: [id number] Date:4940-24-11BK [address] 621262[place]WC[place] [address]UI: KATH[facility]ARIC[facility] 08/16/2024 Kathy AshB: [facility] [place] [address] Primary Insurance:MedicarePolic y Number: Effective Date:2525-70-86Ahlf Name:MEDPO [address]Gfuifl[place], [place] [address]RG: Kathy AshB: [id number] [place] [address] [facility] 08/16/2024 Secondary Insurance:AARPPolicy Number: Effective Date:0841-97-11Ydfv Name:COMP [address]flvvbu, [place] [address]KV: Kathy AshB: [id number] [place] [address] [facility] 08/10/2024 [place] [address]Afy: () Primary Insurance:MedicarePolic y Number: [id number] Date:2024-08-10 Kathy AshB: [id number] [place] [address]Bvr: () [facility] 08/10/2024 Secondary Insurance:[facility] ClaimsPolicy Number: [id number] Date:2024-08-10 Kathy AshB: [id number] [place] [address]Jza: (HP) [facility] 08/10/2024 Tertiary Insuran ce:Self PayPolicy Number: Effective Date:2024-08-10 [facility] 08/09/2024 KATHY ASHB: [place] [address]Nrc: () Primary Insurance:MEDICAREPolic y Number: [id number] Date:4633-52-14Jxnz Name:Medicare KATHY ASHB: [id number] [place] [address] [facility] 08/09/2024 Secondary Insurance:AARPPolicy Number: [id number] Date:2022-07-14 KATHY ASHB: [id number] [place] [address] [facility] 08/04/2024 KATHY APARICIOB: [place] [address]Jmn: () Primary Insurance:MEDICAREPolic y Number: [id number] Date:6248-89-05Mlkm Name:Medicare KATHY ASHB: [id number] [place] [address] [facility] 08/04/2024 Secondary Insurance:AARPPolicy Number: [id number] Date:2022-07-14 KATHY ASHB: [id number] [place] [address] [facility] 07/26/2024 Kathy AshB: [facility] [place] [address] Primary Insurance:MedicarePolic y Number: Effective Date:9683-95-26Mnpv Name:[facility] [address], [place] [address]RH: Kathy AparicioDOB: [id number] [facility] [place] [place] [address] [facility] 07/26/2024 Secondary Insurance:AARPPolicy Number: Effective Date:7670-19-76Qtfm Name:[facility] [address], [place] [address]MY: Kathy AparicioDOB: [id number] [facility] [place] [place] [address] [facility] 07/12/2024 Kathy AparicioDOB: [facility] [place] [place] [address] Primary Insurance:MedicarePolic y Number: Effective Date:7726-94-69Hatl Name:MEDPO [address]Wymdc[place] [address]ZA: Kathy AparicioDOB: [id number] [facility] [place] [place] [address] [facility] 07/12/2024 Secondary Insurance:AARPPolicy Number: Effective Date:3931-72-31Lvic Name:ADRIAN [address], [place] [address]PO: Kathy AparicioDOB: [id number] [place] [address] [facility] 06/28/2024 KATHY NOELLYDOB: [place] [address]Cit: (HP) Primary Insurance:MEDICAREPolic y Number: [id number] Date:4806-05-91Fpjr Name:Medicare KATHY APARICIODOB: [id number] [place] [address] [facility] 06/28/2024 Secondary Insurance:AARPPolicy Number: [id number] Date:2022-07-14 KATHY APARICIODOB: [id number] [place] [address] [facility] 06/23/2024 KATHY NOELLYDOB: [place] [address]Kzm: (HP) Primary Insurance:MEDICAREPolic y Number: [id number] Date:0774-57-16Vrzo Name:Medicare KATHY NOELLYDOB: [id number] [place] [address] [facility] 06/23/2024 Secondary Insurance:AARPPolicy Number: [id number] Date:2022-07-14 KATHY NOELLYDOB: [id number] [place] [address] [facility] 06/17/2024 KATHY NOELLYDOB: [place] [address]Rsu: (HP) Primary Insurance:MEDICAREPolic y Number: [id number] Date:8442-58-49Ftkk Name:Medicare KATHY ASHB: [id number] [place] [address] [facility] 06/17/2024 Secondary Insurance:AARPPolicy Number: [id number] Date:2022-07-14 KATHY APARICIODOB: [id number] [place] [address] [facility] 06/15/2024 [place] [address]Edh: () Primary Insurance:Self PayPolicy Number: Effective Date:2024-06-15 [facility] 06/14/2024 Kathy AshB: [place] [address] Primary Insurance:MedicarePolic y Number: Effective Date:3768-29-94Romc Name:[facility] [address], [place] [address]TX: Kathy AparicioDOB: [id number] [facility] [place] [address] [facility] 06/14/2024 Secondary Insurance:AARPPolicy Number: Effective Date:9093-84-45Mnbn Name:[facility] [address], [place] [address]OC: Kathy AparicioDOB: [id number] [place] [address] [facility] 06/07/2024 Kathy NoellyDOB: [place] [address] Primary Insurance:MedicarePolic y Number: Effective Date:6562-23-98Dtwa Name:[facility] [address] [address]IN: Kathy NoellyDOB: [id number] [facility] [place] [place] [address] [facility] 06/07/2024 Secondary Insurance:AARPPolicy Number: Effective Date:7054-37-64Fvfb Name:[address], [place] [address]LR: Kathy AparicioDOB: [id number] [place] [address] [facility] 05/26/2024 Primary Insurance:MEDICARE A AND BPolicy Number: [id number] Date:[id number] Name:Casi ASHB: [id number] [place] [address] [facility] 05/26/2024 Secondary Insura nce:[facility] AARP SUPPLEMENTPolicy Number: [id number] Date:8681-78-43Trdi Name:Joslyn ASHB: [id number] [place] [address] [facility] 05/26/2024 Primary Insurance:MEDICARE A AND BPolicy Number: [id number] Date:8651-74-51Snut Name:Casi ASHB: [id number] [place] [address] [facility] 05/26/2024 Secondary Insura nce:[facility] AARP SUPPLEMENTPolicy Number: [id number] Date:8985-39-88Yegg Name:Joslyn ASHB: [id number] [place] [address] [facility] 05/26/2024 Kathy Noelly[address] [place] [address]Lbz: (HP) Primary Insurance:MedicarePolic y Number: [id number] Date:2024-05-26 Kathy AparicioDOB: [id number] [place] [address]Kgb: (HP) [facility] 05/26/2024 Secondary Insurance:AARP Health ClaimsPolicy Number: [id number] Date:2024-05-26 Kathy Salas: [id number] [place] [address]Bmw: () [facility] 05/26/2024 Tertiary Insuran ce:Self PayPolicy Number: Effective Date:2024-05-26 [facility] Kathy Ochoashjudy [place], [facility]Icw: () Primary Insurance:MedicarePolic y Number: [id number] Date:2024-05-12 Kathy Salas: [id number] [place] [address]Eea: () [facility] 05/18/2024 Secondary Insurance:[facility] Health ClaimsPolicy Number: [id number] Date:2024-05-12 Kathy AshB: [id number] [place] [address]Saf: () [facility] 05/18/2024 Tertiary Insuran ce:Self PayPolicy Number: Effective Date:2024-05-14 [facility] Primary Insurance:MEDICARE A AND BPolicy Number: [id number] Date:3180-41-45Sgxt Name:P KATHY ASHB: [id number] [place] [address] [facility] 05/17/2024 Secondary Insura nce:[facility] AAR SUPPLEMENTPolicy Number: [id number] Date:1390-46-20Nqcl Name:Joslyn ASHB: [id number] [place] [address] [facility] 05/06/2024 [place] [address]Yij: (HP) Primary Insurance:MedicarePolic y Number: [id number] Date:2024-05-06 Kathy AshB: [id number] [address]Ghk: (HP) [facility] 05/06/2024 Secondary Insurance:AAR Health ClaimsPolicy Number: [id number] Date:2024-05-06 Kathy AshB: [id number] [place] [address]Xxr: (HP) [facility] 05/06/2024 Tertiary Insuran ce:Self PayPolicy Number: Effective Date:2024-05-06 NOT GIVENUNK [facility] 02/24/2024 KATHY ASHB: [facility] CAREJUDY PLTel: ~ ~( 41 (HP) Primary Insurance:MEDICAREPolic y Number: [id number] Date:8040-44-85[id number] [place] [address]F: KATHY GONZALEZ [facility] 02/24/2024 Secondary Insurance:AARPPolicy Number: [id number] Date:9621-59-15[address], [place] [address]WF: KATHY GONZALEZ [facility] 02/03/2024 KATHY ASHB: [place] [address]Bvh: (HP) Primary Insurance:MEDICAREPolic y Number: [id number] Date:6593-23-68Unei Name:Medicare KATHY ASHB: [id number] [place] [address] [facility] 02/03/2024 Secondary Insurance:AARPPolicy Number: [id number] Date:2022-07-14 KATHY SALAS: [id number] [place] [address] [facility]IC
--- OUTSIDE RECORDS SUMMARY | 2025-01-12 13:30 | XMS_ITS | Encounter Summary ---
Author Organization [facility] Address [address] [place] [address] Care Team Providers Care Auto Wrecker Name Role Phone Dmitriy Presley MD Primary Care Provider [phone] Maco Guillaume DO Unavailable [phone] Reason for Visit * Reason Comments Schedule colonoscopy Encounter Details Date Type Department Care Team (Late st Contact Info) Description 01/12/2025 1:30 PM EDT Office Visit [facility] [address] [place] [id number] Keith Iglesias DO 703 [facility] 150 [place] [address] Diarrhea, unspecified type (Primary Dx) Social History Tobacco Use Types Packs/Day Years Used Date Smoking Tobacco: Never Alcohol Use Standard Drinks/Week Comments Yes 0 [...] Sign Reading Time Taken Comments Blood Pressure 122/76 01/12/2025 1:23 PM EDT Pulse - - Temperature - - Respiratory Rate - - Oxygen Saturation - - Inhaled Oxygen Concentration - - Weight 102 kg (225 lb) 01/12/2025 1:23 PM EDT Height 175.3 cm (5' 9 ) 01/12/2025 1:23 PM EDT Body Mass Index 33.23 01/12/2025 1:23 PM EDT documented in this encounter Progress Notes * Keith Iglesias, DO - 01/12/2025 1:30 PM EDT Images from the original note were not included. Kathy Washburn 1940 Katyh Washburn is a 84 y.o. female presents with chief complaint of Schedule colonoscopy HPI: HPI Kathy presents to schedule a colonoscopy due to diarrhea. We had discussed it in June and she was going to try to do a Cologuard test. She states she could not get a sample to do the Cologuard test due to frequent diarrhea. SUBJECTIVE: MEDICATIONS: ALLERGIES Current Outpatient Medications Medication Instructions aspirin 81 MG EC tablet Every 24 hours atorvastatin (LIPITOR) 20 mg, Daily cholecalciferol (VITAMIN D-3) 5,000 Units citalopram (CELEXA) 40 mg, Daily Estrace 0.1 MG/GM vaginal cream See Instructions, 42.5 gm, Refill(s) 6, apply a pea-sized amount vaginally and around the urethra 3x per week for UTI prevention, [employer] #72, 178, cm, 08/16/24 9:10:00 EST, Height/Length Dosing, 103, kg, 08/16/24 9:10:00 EST, Weight Dosing ezetimibe (ZETIA) 10 mg, Daily furosemide (LASIX) 20 mg, 2 times daily hydroxychloroquine (Plaquenil) 200 MG tablet insulin glargine (Lantus) 100 UNIT/ML injection ketoconazole (NIZOral) 2 % cream Lantus SoloStar 100 UNIT/ML pen levothyroxine (Synthroid, Levoxyl) 100 MCG tablet lisinopril 10 mg, Daily metFORMIN (GLUCOPHAGE) 1,000 mg, 2 times daily with meals mirabegron ER (Myrbetriq) 25 MG 24 hr tablet Every 24 hours mirabegron ER (Myrbetriq) 25 MG 24 hr tablet Every 24 hours Multiple Vitamin (Tab-A-Sivan) tablet 1 tablet, Daily oxybutynin (Ditropan) 5 MG tablet oxyCODONE-acetaminophen (Percocet) 5-325 MG tablet OYSCO 500 + D 500-5 MG-MCG tablet 1 tablet, Every morning pregabalin (LYRICA) 225 mg, 2 times daily propranolol LA (INDERAL LA) 60 mg, Daily triamterene-hydrochlorothiazide (Maxzide-25) 37.5-25 MG tablet trospium (SANCTURA) 20 mg, 2 times daily venlafaxine XR (Effexor XR) 75 MG 24 hr capsule zolpidem (AMBIEN) 5 mg, Nightly Allergies Allergen Reactions Cefpodoxime Other Other Reaction(s): Eye swelling Cephalosporins Unknown PAST MEDICAL HISTORY: SOCIAL HISTORY SURGICAL HISTORY: Past Medical History: Diagnosis Date Hernia, inguinal History of insulin dependent diabetes mellitus IDDM History of left knee replacement History of right knee joint replacement 2009 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 Caffeine: 3-4 cups/day coffee Past Surgical History: Procedure Laterality Date BACK SURGERY 2016 COLONOSCOPY 2013 COLONOSCOPY 2002 JOINT REPLACEMENT Left 08/2011 knee replacement; Dr. Haque JOINT REPLACEMENT Right 2010 knee replacement OTHER SURGICAL HISTORY 1999 fissure repair [place] REPAIR SLIDING INGUINAL HERNIA Hernia, inguinal TOTAL ABDOMINAL HYSTERECTOMY W/ BILATERAL SALPINGOOPHORECTOMY 1987 FAMILY HISTORY Family History Problem Relation Name Age of Onset Cancer Mother Heart disease Father Alzheimer's disease Father Migrated family history Accidental Sister MVA No Known Problems Brother Breast cancer Neg Hx Colon cancer Neg Hx Ovarian cancer Neg Hx Pancreatic cancer Neg Hx REVIEW OF SYMPTOMS: Review of Systems Constitutional: Negative for diaphoresis and unexpected weight change. HENT: Negative for hearing loss, tinnitus and voice change. Respiratory: Negative for shortness of breath. Cardiovascular: Negative for chest pain and palpitations. Gastrointestinal: Positive for diarrhea. Musculoskeletal: Positive for arthralgias. Neurological: Negative for dizziness, seizures and headaches. All other systems reviewed and are negative. Hematological: Negative for adenopathy. Does not bruise/bleed easily. OBJECTIVE: Visit Vitals BP 122/76 Ht 5' 9 Wt 225 lb BMI 33.23 kg/m² Smoking Status Never BSA 2.23 m² Physical Exam HENT: Head: Normocephalic. Cardiovascular: Rate and Rhythm: Normal rate and regular rhythm. Pulmonary: Effort: Pulmonary effort is normal. Breath sounds: Normal breath sounds. Abdominal: General: Abdomen is flat. Bowel sounds are normal. Palpations: Abdomen is soft. Skin: General: Skin is warm and dry. Neurological: Mental Status: She is alert. ASSESSMENT AND PLAN: Assessment/Plan Diagnoses and all orders for this visit: Diarrhea, unspecified type I explained the colonoscopy procedure in detail to the patient and discussed the risks and benefitsincluding but not exclusive of bleeding, and perforation. I asked the patient not to drive, operateany machinery or make any important decisions on the day of the procedure. The patient is in agreement and arrangements for colonoscopy have been made. documented in this encounter Plan of Treatment Upcoming Encounters Date Type Department Care Team (Late st Contact Info) Description 01/28/2025 10:30 AM EDT Office Visit [facility]03 [facility] [address] [place] [address] Ketih Iglesias DO 703 [facility] 150 [place] [address] documented as of this encounter Visit Diagnoses Diagnosis Diarrhea, unspecified type- Primary documented in this encounter Care Teams Auto Wrecker Relationship Specialty Start Date End Date Dmitriy Presley MD [address] [place], [place] [id number] PCP - General Family Medicine 12/10/22 Maco Guillaume DO [address] [place], [place] [id number] Referring Physician Neurology 08/09/24 documented as of this encounter
--- OUTSIDE RECORDS SUMMARY | 2025-01-17 12:58 | XMS_ITS | Encounter Summary ---
Author Organization [facility] Address [address] [place] [address] Care Team Providers Care Funeral Home Location Manager Name Role Phone Dmitriy Presley MD Primary Care Provider [phone] Maco Guillaume DO Unavailable [phone] Encounter Details Date Type Department Care Team (Latest Contact Info) Description 01/12/2025 Travel Social History Tobacco Use Types Packs/Day Years [...] EDT Office Visit [facility]03 [facility] 150 [place] [address] Keith Iglesias DO 703 [facility] 150 [place] [address] documented as of this encounter Visit Diagnoses Not on filedocumented in this encounter Care Teams Funeral Home Location Manager Relationship Specialty Start Date End Date Dmitriy Presley MD [address] [place] [address] [place] [address] PCP - General Family Medicine 12/10/22 Maco Guillaume DO [address] [place] [address] Referring Physician Neurology 08/09/24 documented as of this encounter
--- OUTSIDE RECORDS SUMMARY | 2025-01-17 12:58 | XMS_ITS | Encounter Summary ---
Author Organization [facility] [place] [address] Care Team Providers Care Certified Orthotic Fitter Name Role Phone Dmitriy Presley DO Primary Care Provider [phone] Dmitriy Presley DO Unavailable [phone] Dmitriy Presley DO Unavailable [phone] Source Comments In the event this information is protected by the Federal Confidentiality of Alcohol and Drug AbusePatient Records regulations: The Federal rules restrict any use of the information to criminally investigate or prosecute any alcohol or drug abuse patient.[facility] Encounter Details Date Type Department Care Team (Late st Contact Info) Description 05/10/2024 Patient [facility] -3 [address] [place] [address] Leona Romero RPh At your next appointment, choose [facility]. Social History Tobacco Use Types [...] is lower risk 4 02/07/2023 Data from: https://www.neighborhoodatlas.medicine.[facility].edu/. Last address used for calculation [address] [...] 12/19/2025 11:00 AM EDT Office Visit Rheumatology [address] [place] [address] [place] [address] [place] [address] Return in about 1 year (around 12/17/2025). documented as of this encounter Visit Diagnoses Not on filedocumented in this encounter Care Teams Certified Orthotic Fitter Relationship Specialty Start Date End Date Dmitriy Presley DO [address] [place] [address] PCP - General Family Medicine 08/01/11 Dmitriy Presley DO [address] [place] [address] Referring Family Medicine 10/04/20 Dmitriy Presley DO [address] [place] [address] Referring Family Medicine 01/09/21 documented as of this encounter
--- OUTSIDE RECORDS SUMMARY | 2025-01-17 12:58 | XMS_ITS | Encounter Summary ---
Author Organization [facility] Address [address] [place] [address] Care Team Providers Care Claim Approver Name Role Phone Dmitriy Presley DO Primary Care Provider [phone] Dmitriy Presley DO Unavailable [phone] Dmitriy Presley DO Unavailable [phone] Source Comments In the event this information is protected by the Federal Confidentiality of Alcohol and Drug AbusePatient Records regulations: The Federal rules restrict any use of the information to criminally investigate or prosecute any alcohol or drug abuse patient.[facility] Encounter Details Date Type Department [...] N ot on file 03/12/2021 Data from: https://www.neighborhoodatlas.medicine.[facility]/. Last address used for calculation Not [...] 12/19/2025 11:00 AM EDT Office Visit Rheumatology [address] [place] [address] [place] [address] [place] [address] Return in about 1 year (around 12/17/2025). documented as of this encounter Visit Diagnoses Not on filedocumented in this encounter Care Teams Claim Approver Relationship Specialty Start Date End Date Dmitriy Presley DO [address] [place] [address] PCP - General Family Medicine 08/01/11 Dmitriy Presley DO [address] [place] [address] Referring Family Medicine 10/04/20 Dmitriy Presley DO [address] [place] [address] Referring Family Medicine 01/09/21 documented as of this encounter
--- OUTSIDE RECORDS SUMMARY | 2025-01-17 12:58 | XMS_ITS | Clinical Summary ---
Author Organization [facility] Address [address] [place] [address] Care Team Providers Care Motor Route Carrier Name Role Phone Dmitriy Presley DO Primary [...] AARP HEALTH CARE MEDICARE SUPP Care Teams Motor Route Carrier Relationship Specialty Start Date End Date Dmitriy Presley DO PCP - General Family Medicine 02/05/19
--- OUTSIDE RECORDS SUMMARY | 2025-01-17 12:58 | XMS_ITS | Clinical Summary ---
Author Organization [facility] Address [address] [place] [address] Care Team Providers Care Central Office Maintainer Name Role Phone Dmitriy Presley DO Primary Care Provider [phone] Dmitriy Presley DO Unavailable [phone] Dmitriy Presley DO Unavailable [phone] Allergies Active Allergy Reactions Criticality Noted Date Comments Cephalosporins Hives,Swelling 02/20/2004 Cefpodoxime Unknown 04/03/2022 Medications LASIX 20MG TABLETIndications:O ther specified idiopathic peripheral neuropathy Take one(1) tablet daily. 0 4 Active INDERAL LA 60MG CAPSULE SAIndications:Other specified idiopathic peripheral neuropathy Take one(1) tablet daily. 0 4 Active ZETIA 10MG TABLETIndications:O ther specified idiopathic peripheral neuropathy Take one(1) tablet daily. 0 4 Active atorvastatin (LIPITOR) 20 mg tabletIndications:O ther specified idiopathic peripheral neuropathy Take 20 mg by mouth. 0 4 Active ZESTRIL 20MG TABLETIndications:O ther specified idiopathic peripheral neuropathy Take 10 mg by mouth once daily. 0 4 Active ASPIRIN 81MG TABLETIndications:O ther specified idiopathic peripheral neuropathy Take one (1) tablet daily . 0 4 Active CENTRUM SILVER TABLETIndications:O ther specified idiopathic peripheral neuropathy Take one(1) tablet daily. 0 4 Active LYRICA 225 mg ORAL capsule Take 225 mg by mouth twice daily. 1 Active OXYCODONE-ACETAMINO PHEN 5-325 mg ORAL tablet as needed. 2 Active METFORMIN 1,000 mg ORAL tablet Take 1,000 mg by mouth twice daily with meals. 1 Active LEVOTHYROXINE 88 mcg ORAL tablet 1 Active insulin glargine (LANTUS) 100 unit/mL injection Inject subcutaneous ly. 21 units Active venlafaxine ER (EFFEXOR XR) 75 mg 24 hr capsule Take 75 mg by mouth once daily. 2 Active hydrOXYchloroQUINE (PLAQUENIL) 200 mg tabletIndications:P rimary osteoarthritis involving multiple joints Take 2 tablets by mouth once daily. 180 tablet 3 5 12/13/19 26 Active Active Problems Problem Noted Date Diagnosed Date Knee pain 07/24/2011 Encounters Date Type Department Care Team Description 12/17/2024 10:20 AM EDT Office Visit Rheumatology [address] [place], [place] [id number] Bertrand Morrow MD Fibromyalgia (Primary Dx); Primary osteoarthritis involving multiple joints; Type 2 diabetes mellitus without complication, with long-term current use of insulin (HCC); Long-term use of Plaquenil 11/17/2024 Telephone Cancer Appts [address] [facility] [place] [address] Chad Freitas MD Records faxed 11/11/[address] [facility]-[address] [place] [address] Leona Romero RPh At your next appointment, choose [facility]. from Last 3 Months Family History [...] is lower risk 4 02/07/2023 Data from: https://www.neighborhoodatlas.medicine.[place].edu/. Last address used for calculation [address] [...] 12/19/2025 11:00 AM EDT Office Visit Rheumatology [address] [place], [place] [id number] [place] [address] [facility] [place], [place] [id number] Return in about 1 year (around 12/17/2025). [...] 2024 03/19/2024, 06/23/2023, 04/18/2022, Additional history exists Influenza Vaccine (#1) 2025 , 04/15/2023, 04/25/2021, Additional history exists DTaP,Tdap,Td Vaccine (2 - Td or Tdap) 01/14/2032 01/13/2022 Pneumococcal Vaccine: 50+ Completed 2022, 04/22/2022, 07/14/2019, Additional history exists RSV Vaccine Completed 06/23/2023 Insurance [facility] MEDICARE Care Teams Central Office Maintainer Relationship Specialty Start Date End Date Dmitriy Presley DO [address] [place] [address] PCP - General Family Medicine 08/01/11 Dmitriy Presley, [address] [place] [address] Referring Family Medicine 10/04/20 Dmitriy Presley, [address] [place] [address] Referring Family Medicine 01/09/21
--- OUTSIDE RECORDS SUMMARY | 2025-01-17 12:58 | XMS_ITS | Clinical Summary ---
Author Organization [facility] Address [address] [place] [address] Care Team Providers Care Entry Level Sales Associate Name Role Phone Dmitriy Presley MD Primary Care Provider [phone] Maco Guillaume DO Unavailable [phone] Allergies Active Allergy Reactions Criticality Noted Date Comments Cefpodoxime Other 02/16/2019 Other Reaction(s): Eye swelling Cephalosporins Unknown 12/06/2022 Medications hydroxychloroqu ine (Plaquenil) 200 MG tablet Active insulin glargine (Lantus) 100 UNIT/ML injection Active ketoconazole (NIZOral) 2 % cream Active mirabegron ER (Myrbetriq) 25 MG 24 hr tablet 1 (one) time each day at the same time Active Lantus SoloStar 100 UNIT/ML pen 3 Active OYSCO 500 + D 500-5 MG-MCG tablet Take 1 tablet by mouth in the morning. 2 Active ezetimibe (Zetia) 10 MG tablet Take 10 mg by mouth Daily Active pregabalin (Lyrica) 225 MG capsule Take 225 mg by mouth in the morning and 225 mg before bedtime. 3 Active citalopram (CeleXA) 40 MG tablet Take 40 mg by mouth Daily Active Multiple Vitamin (Tab-A-Sivan) tablet Take 1 tablet by mouth Daily 2 Active metFORMIN (Glucophage) 1000 MG tablet Take 1,000 mg by mouth in the morning and 1,000 mg in the evening. Take with meals. Active furosemide (Lasix) 20 MG tablet Take 20 mg by mouth in the morning and 20 mg before bedtime. Active lisinopril 10 MG tablet Take 10 mg by mouth Daily Active mirabegron ER (Myrbetriq) 25 MG 24 hr tablet 1 (one) time each day at the same time Active atorvastatin (Lipitor) 20 MG tablet Take 20 mg by mouth Daily Active oxyCODONE-aceta minophen (Percocet) 5-325 MG tablet Acti ve propranolol LA (Inderal LA) 60 MG 24 hr capsule Take 60 mg by mouth Daily 3 Active venlafaxine XR (Effexor XR) 75 MG 24 hr capsule 4 Active zolpidem (Ambien) 5 MG tablet Take 5 mg by mouth at bedtime Active cholecalciferol (Vitamin D-3) 125 MCG (5000 UT) capsule 5,000 Units 4 Active oxybutynin (Ditropan) 5 MG tablet 3 Active levothyroxine (Synthroid, Levoxyl) 100 MCG tablet 4 Active triamterene-hyd rochlorothiazid e (Maxzide-25) 37.5-25 MG tablet 4 Active trospium (Sanctura) 20 MG tablet Take 20 mg by mouth in the morning and 20 mg before bedtime. 4 Active Estrace 0.1 MG/GM vaginal cream See Instructions, 42.5 gm, Refill(s) 6, apply a pea-sized amount vaginally and around the urethra 3x per week for UTI prevention, [employer] #72, 178, cm, 08/16/24 9:10:00 EST, Height/Length Dosing, 103, kg, 08/16/24 9:10:00 EST, Weight Dosing 5 Active aspirin 81 MG EC tablet 1 (one) time each day at the same time Active ciprofloxacin (Cipro) 500 MG tablet Take 500 mg by mouth in the morning and 500 mg before bedtime. 01/13/20 25 Discontinu ed(Therapy completed) Active Problems Problem Noted Date Diagnosed Date [...] with type 2 diabetes mellitu s 07/14/2009 Encounters Date Type Department Care Team Description 01/12/2025 1:30 PM EDT Office Visit [facility] [facility] [address] [place] [address] Keith Iglesias, Diarrhea, unspecified type (Primary Dx) 01/12/2025 Travel 12/29/2024 Travel from Last 3 Months Immunizations Immunization Administration Dates Next Due Influenza, High-dose Seasona l, Quadrivalent, Preservative Free 04/04/2021 Family History Medical History Relation Name Comments No Known Problems Brother Alzheimer's disease Father Migrated family history Heart disease Father Cancer Mother Accidental Sister MVA Breast cancer Neg Hx Colon cancer Neg Hx Ovarian cancer Neg Hx Pancreatic cancer Neg Hx Relation Name Status Comments Brother 1 brother Father Mother Other Spouse Sister 1 sister Social History Tobacco Use Types Packs/Day Years [...] Pressure 122/76 01/12/2025 1:23 PM EDT Pulse 64 08/09/2024 2:16 PM EST Temperature - - Respiratory Rate - - Oxygen Saturation 90% 06/17/2024 1:58 PM EST Inhaled Oxygen Concentration - - Weight 102 kg (225 lb) 01/12/2025 1:23 PM EDT Height 175.3 cm (5' 9 ) 01/12/2025 1:23 PM EDT Body Mass Index 33.23 01/12/2025 1:23 PM EDT Plan of Treatment Upcoming Encounters Date Type Department Care Team (Late st Contact Info) Description 01/28/2025 10:30 AM EDT Office Visit [facility]03 [facility] [address] [place] [phone] Keith Iglesias DO 703 [facility] 150 [place] [address] Health Maintenance Due Date Last Done Comments Influenza Vaccine (#1) 2025 4, 04/15/2023, 04/25/2021, Additional history exists Pneumococcal Vaccine: 65+ Years Completed 06/23/2023, 04/22/2022, 07/14/2019, Additional history exists Insurance [facility]ICARE [facility] Care Teams Entry Level Sales Associate Relationship Specialty Start Date End Date Dmitriy Presley MD [address] [place] [address] [place] [address] PCP - General Family Medicine 12/10/22 Maco Guillaume DO [address] [place] [address] Referring Physician Neurology 08/09/24
--- OUTSIDE RECORDS SUMMARY | 2025-01-17 12:58 | XMS_ITS | Encounter Summary ---
Author Organization [facility] Address [facility] [place] [address] Care Team Providers Care Market Research Consultant Name Role Phone Dmitriy Presley DO Primary Care Provider [phone] Dmitriy Presley DO Unavailable [phone] Dmitriy Presley DO Unavailable Source Comments In the event this information is protected by the Federal Confidentiality of Alcohol and Drug AbusePatient Records regulations: The Federal rules restrict any use of the information to criminally investigate or prosecute any alcohol or drug abuse patient.[facility] Encounter Details Date Type Department Care Team (Late st Contact Info) Description 11/11/2024 Patient [facility] -[address] [place] [address] Leona Romero RPh At your next appointment, choose [facility]. Social History Tobacco Use Types [...] is lower risk 4 02/07/2023 Data from: https://www.neighborhoodatlas.medicine.[facility].edu/. Last address used for calculation [address] [...] 12/19/2025 11:00 AM EDT Office Visit Rheumatology [address] [place] [address] [place] [address] [facility] [place] [address] Return in about 1 year (around 12/17/2025). documented as of this encounter Visit Diagnoses Not on filedocumented in this encounter Care Teams Market Research Consultant Relationship Specialty Start Date End Date Dmitriy Presley DO [address] [place] [address] PCP - General Family Medicine 08/01/11 Dmitriy Presley DO [address] [place] [address] Referring Family Medicine 10/04/20 Dmitriy Presley DO [address] [place] [address] Referring Family Medicine 01/09/21 documented as of this encounter
--- OUTSIDE RECORDS SUMMARY | 2025-01-17 12:58 | XMS_ITS | Clinical Summary ---
Author Organization [facility] Address [address] [place] [address] Phone Care Team Providers Care Vp Scientific Affairs Name Role Phone Dmitriy Presley DO Primary Care Provider [phone] Social History Tobacco Use Types Packs/Day Years [...] of 2) 1992 RSV High Risk: (Elderly (60+) or Population) (1 - 1-dose 75+ series) 2017 Pneumococcal Vaccine (2 of 2 - PCV) 04/22/2023 04/22/2022, 04/03/2019 COVID-19 Vaccine ( - season) 2024 Influenza Vaccine (#1) 2025 2, 04/04/2021, 03/27/2020, Additional history exists HIB Vaccines Aged Out No longer eligi ble based on patient's age to complete this topic HPV Vaccines (No Doses Required) Completed Hepatitis A Vaccines Aged Out No long [...] age to complete this topic Care Teams Vp Scientific Affairs Relationship Specialty Start Date End Date Dmitriy Presley DO PCP - General 05/13/18
--- OUTSIDE RECORDS SUMMARY | 2025-01-17 12:58 | XMS_ITS | Encounter Summary ---
Author Organization [facility] Address [address] [place] [address] Care Team Providers Care Steam Oven Operator Name Role Phone Dmitriy Presley DO Primary Care Provider Dmitriy Presley DO Unavailable [phone] Dmitriy Presley DO Unavailable [phone] Source Comments In the event this information is protected by the Federal Confidentiality of Alcohol and Drug AbusePatient Records regulations: The Federal rules restrict any use of the information to criminally investigate or prosecute any alcohol or drug abuse patient.[facility] Encounter Details Date Type Department Care Team (Late st Contact Info) Description 04/03/2022 Abstract Hematology/Oncology [address] [place] [address] Santos Lares MD [address] [facility] [place] [address] Social History Tobacco Use Types [...] N ot on file 03/12/2021 Data from: https://www.neighborhoodatlas.medicine.[facility].edu/. Last address used for calculation [...] 12/19/2025 11:00 AM EDT Office Visit Rheumatology [address] [place] [address] [place] [address] [facility] [place] [address] Return in about 1 year (around 12/17/2025). documented as of this encounter Visit Diagnoses Not on filedocumented in this encounter Care Teams Steam Oven Operator Relationship Specialty Start Date End Date Dmitriy Presley DO [address] [place] [address] PCP - General Family Medicine 08/01/11 Dmitriy Presley DO [address] [place] [address] Referring Family Medicine 10/04/20 Dmitriy Presley DO [address] [place] [address] Referring Family Medicine 01/09/21 documented as of this encounter
--- OUTSIDE RECORDS SUMMARY | 2025-01-17 12:58 | XMS_ITS | Encounter Summary ---
Author Organization [facility] Address [address] [place] [address] Care Team Providers Care Scroll Machine Operator Name Role Phone Dmitriy Presley MD Primary Care Provider [phone] Maco Guillaume DO Unavailable [phone] Encounter Details Date Type Department Care Team (Late st Contact Info) Description 12/07/2022 Abstract [facility] [address] [facility] [address] [place] [phone] Butch Smith DPM [address] [place] [address] Social History Tobacco Use Types Packs/Day Years [...] 10:30 AM EDT Office Visit [facility] [address] [facility] [address] [place] [phone] Keith Iglesias DO [address] [facility] [address] [place] [address] documented as of this encounter Visit Diagnoses Not on filedocumented in this encounter Care Teams Scroll Machine Operator Relationship Specialty Start Date End Date Dmitriy Presley MD [address] [place] [address] [place] [address] PCP - General Family Medicine 12/10/22 Maco Guillaume DO [address] [place] [address] Referring Physician Neurology 08/09/24 documented as of this encounter
--- NOTE | 2025-01-17 14:14 | PM.CN ---
Consult Note: HPI Data of Consult Patient: known to practice within the last 3 years Consult date: 01/17/25 Requesting Physician: Som Azul MD Primary Care Provider: AYANNA VICENTE Consult Narrative Reason for consult: low back, right leg pain Narrative: 84yof who presents for assessment. continues to have pain throughout the low back, right leg pain. she is fused from l4-5. she has had multiple conservative measures, including physical therapy, chiropractic therapy, injection modalities, with limited benefit. not a surgical candidate due to other comorbidities. denies adverse med side effects. cc:: CC: Som Azul MD Review of Systems ROS Status of ROS 10 or more systems reviewed and unremarkable except as noted in history and below [facility] Medical History Osteoarthritis �M19.90 - Unspecified osteoarthritis, unspecified site (ICD-10) Chronic lymphocytic leukemia �C91.10 - Chronic lymphocytic leukemia of B-cell type not having achieved remission (ICD-10) Diabetes �E11.9 - Type 2 diabetes mellitus without complications (ICD-10) Former smoker �Z87.891 - Personal history of nicotine dependence (ICD-10) High cholesterol �E78.00 - Pure hypercholesterolemia, unspecified (ICD-10) Hypertension �I10 - Essential (primary) hypertension (ICD-10) Surgical History S/P lumbar fusion �Z98.1 - Arthrodesis status (ICD-10) S/P hernia surgery �Z98.890 - Other specified postprocedural states (ICD-10) �Z87.19 - Personal history of other diseases of the digestive system (ICD-10) H/O: hysterectomy �Z90.710 - Acquired absence of both cervix and uterus (ICD-10) Social History Smoking status: Never smoker Little interest or pleasure in doing things: not at all Feeling down, depressed, or hopeless: not at all Meds Home Medications and Allergies Home Medications �Medication �Instructions �Recorded �Confirmed �Type B-complex with vitamin C 1 tab PO DAILY 08/25/23 12/20/24 History aspirin 81 mg tablet,delayed 81 mg PO DAILY 08/25/23 12/20/24 History release atorvastatin 20 mg tablet (Lipitor) 20 mg PO DAILY 08/25/23 12/20/24 History cholecalciferol (vitamin D3) 125 125 mcg PO DAILY 08/25/23 12/20/24 History mcg (5,000 unit) capsule ezetimibe 10 mg tablet (Zetia) 10 mg PO DAILY 08/25/23 12/20/24 History levothyroxine 100 mcg tablet 100 mcg PO DAILY 08/25/23 12/20/24 History (Synthroid) lisinopril 10 mg tablet 10 mg PO DAILY 08/25/23 12/20/24 History metformin 1,000 mg tablet 1,000 mg PO BID 08/25/23 12/20/24 History multivitamin 1 tab PO DAILY 08/25/23 12/20/24 History oxybutynin chloride 5 mg tablet 5 mg PO DAILY 08/25/23 12/20/24 History oxycodone-acetaminophen 5 mg-325 1 tab PO BID PRN pain 08/25/23 12/20/24 History mg tablet pregabalin 225 mg capsule (Lyrica) 225 mg PO BID 08/25/23 12/20/24 History propranolol 60 mg tablet 60 mg PO DAILY 08/25/23 12/20/24 History triamterene 37.5 1 tab PO DAILY 08/25/23 12/20/24 History mg-hydrochlorothiazide 25 mg tablet (Maxzide-25mg) venlafaxine 75 mg capsule,extended 75 mg PO DAILY 08/25/23 12/20/24 History release 24 hr (Effexor XR) zolpidem 5 mg tablet 5 mg PO DAILY 08/25/23 12/20/24 History Allergies Allergy/AdvReac Type Severity Reaction Status Date / Time cefpodoxime (From Vantin) Allergy Unknown Unknown Verified 12/20/24 11:30 Exam Narrative Exam Narrative: Psych-alert and oriented x 3. Attentive and appropriate, constitutionally normal, displays normal mood and affect per situation.� There are no obvious deficits in memory, reasoning, or intellect.� Skin-no obvious rashes, bruising, erythema noted to the patient's area of pain. Extremities- extremities are warm with minimal edema and palpable pulses. Lumbar-no significant tenderness to palpation noted in the lumbar spine and paraspinal musculature.� Pain is elicited with extension, and lateral rotation of the lumbar spine. Range of motion is slightly diminished with these motions due to pain. Coordination remains intact.� Gait remains non-antalgic. Assessment and Plan Assessment and Plan (1) Lumbar spondylosis: (2) Failed back syndrome: (3) Lumbar postlaminectomy syndrome: Plan 84yof who presents for assessment. failed conservative measures, as noted. imaging reviewed, as noted. given symptoms and imaging, coupled with surgical history and failure to respond to conservative measures, it is prudent to proceed with spinal cord stimulator trial. will have her undergo psych evaluation. she is in agreement. meds refused, no changes. follow up after trial.
== END 2025-01-17 12:56 | disposition home or self-care (01) ==
LOC: PM 12:56
PROVIDERS: PCP Family Medicine; Visit Provider Anesthesiology
DX: M47.816 Spondylosis without myelopathy or radiculopathy, lumbar region (principal); M96.1 Postlaminectomy syndrome, not elsewhere classified
CPT/HCPCS: G0463

== ENCOUNTER 2025-01-17 13:51 | Outpatient (OUT) | payer MEDICARE, SELFPAY ==
--- OUTSIDE RECORDS SUMMARY | 2025-01-12 13:20 | XMS_ITS ---
Author Name Auto Generated Organization OHIP Care Team Providers Care Sander Portable Machine Name Role Phone ESVIN DUBON Attending Unavailable JAMES COBIAN Attending Unavailable BABITA COFFEY Attending Unavailable AYANNA VICENTE Referring Unavailable MOE BETTS Attending Unavailable MOE BETTS Attending Unavailable JOEL FREDERICK Attending Unavailable BABITA COFFEY Referring Unavailable Ayanna Vicente Admitting Unavailable Girabbi, Ayanna Attending Unavailable Sakina, Ayanna Attending Unavailable Sakina, Ayanna Admitting Unavailable Sakina, Ayanna Primary Care Unavailable Sakina, Ayanna Admitting Unavailable Sakina, Ayanna Primary Care Unavailable Sakina, Ayanna Attending Unavailable Girabbi, Ayanna Admitting Unavailable Girabbi, Ayanna Attending Unavailable Girabbi, Ayanna Attending Unavailable Girabbi, Ayanna Admitting Unavailable Girabbi, Ayanna Primary Care Unavailable Marker, Tri Christina Admitting Unavailable Marker, Triervin Vasquez Attending Unavailable SUSAN CAMARA Attending Unavailable JAX, SUSAN Miller Attending Unavailable Giedraitis , Andrius Vytautmaria alejandra Attending Unavailable Giedraitis , Andrius Vytautmaria alejandra Attending Unavailable Giedraitis , Andrius Vytautmaria alejandra Attending Unavailable Giedraitis , Andrius Vytautmaria alejandra Attending Unavailable Giedraitis , Andrius Vytautmaria alejandra Attending Unavailable Giedraitis , Andrius Vytautmaria alejandra Attending Unavailable Giedraitis , Andrius Vytautas Attending Unavailable Giedraitis , Andrius Vytautmaria alejandra Attending Unavailable AYANNA VICENTE Primary Care Unavailable SELF Referring Unavailable ZOHAIB MORROW Attending Unavailable AYANNA VICENTE Primary Care Unavailable AYANNA VICENTE Primary Care Unavailable CHAD FREITAS Attending Unavailable ZOHAIB MORROW Attending Unavailable AYANNA VICENTE Primary Care Unavailable PROBLEMS DATE TYPE CONDITION / CODE ATTENDING STATUS [facility] 12/17/2024 Active Fibromyalgia / M79.7(ICD-10) ZOHAIB MORROW Active [facility] 12/17/2024 Active 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) ZOHAIB MORROW Active [facility] 12/17/2024 Active Type 2 diabetes mellitus without complication, with long-term current use of insulin (HCC) / E11.9(ICD-10) ZOHAIB MORROW [facility] 12/17/2024 Active Type 2 diabetes mellitus without complication, with long-term current use of insulin (HCC) / Z79.4(ICD-10) ZOHAIB MORROW Active [facility] 12/17/2024 Active Long-term use of Plaquenil / Z79.899(ICD-10) ZOHAIB MORROW Active [facility] 08/10/2024 Unknown Cystitis, unspec ified without hematuria / N30.90(ICD-10) Sakina [facility] 05/26/2024 Active CLL (chronic lymphocytic leukemia) (HCC) / C91.10(ICD-10) CHAD FREITAS Active [facility] 05/26/2024 Unknown Pain in left hip / M25.552(ICD-10) [facility] Encounter for sc reening mammogram for malignant neoplasm of breast / Z12.31(ICD-10) [facility] Unknown Type 2 diabetes mellitus without complications / E11.9(ICD-10) [facility] PROCEDURES No Procedure Records Found RESULTS PROGRESS Observed: 12/17/2024 10:27 AM Status: COMPLETED Source: [facility] HNO ID: [id number] Author: ZOHAIB MORROW MD Service: ? 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 There have not been any new health [...] Reviewed on 05/26/2024 Name Date COVID-19 vaccine ([employer] 03/19/2024, 06/23/2023 COVID-19 vaccine, bivalent ([employer]) 04/18/2022 COVID-19 vaccine, monovalent (PFIZER-BIONTECH) 06/01/2021, 09/01/2020, [...] complication, with long-term current use of insulin ([facility]) (Z79.899) Long-term use of Plaquenil Plan Orders [...] which included preparing to see the patient, blki-df-szne patient care, completing clinical documentation, obtaining and/or [...] Observed: 12/17/2024 10:20 AM Status: COMPLETED Source: [facility] Office Visit (INEZ) KATHY APARICIO ([id number]) 1940 F Date Time Provider Department 12/17/24 10:20 AM ZOHAIB MORROW During your visit today, we recorded the following information about you: Temperature Blood pressure Weight Height 65 degrees 112/71 103.6 kg 1.727 m Zohaib Morrow MD 12/17/2024 10:49 AM Signed Rheumatology Outpatient Clinic Date of Service: 12/17/2024 Patient: Kathy Aparicio Medical Record: [id number] Primary Care Physician: Ayanna Vicente DO Last [...] status 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 There have not been any new health [...] Reviewed on 05/26/2024 Name Date COVID-19 vaccine ([employer]) 03/19/2024, 06/23/2023 COVID-19 vaccine, bivalent ([employer]) 04/18/2022 COVID-19 vaccine, monovalent ([employer]) 06/01/2021, 09/01/2020, 08/11/2020 Physical Exam GENERAL APPEARANCE: [...] which included preparing to see the patient, dyou-id-gqfq patient care, completing clinical documentation, obtaining and/or [...] for Encounter Date Provider Department Center 12/17/2024 [id number] MORROW Rej Annotated image of Homunculus image last updated by Zohaib Morrow MD on 12/17/2024 10:49 AM Encounter Status:Closed by ZOHAIB MORROW on 12/17/24 [facility] Observed: 11/17/2024 12:00 AM Status: COMPLETED Source: [facility] MADDISONKATHY Chester ([id number]) 1940 F Date Time Provider Department 11/17/24 [...] to be following with Dr Silva @ [facility] as this is closer to home for patient. Ilsa requested to talk to medical records regarding having records sent to Dr Silva transferred call To Heather Todd. [facility]ori Todd [facility] 11/17/2024 2:36 PM Signed Records faxed to Dr. Silva [phone]. I called Ilsa to let her know [...] Observed: 09/03/2024 11:25 AM Status: F Source: [facility] 75,000 colonies/ml mixed bacterial skin contaminants 2 Days PERFORMED BY: [place] [address] PATHOLOGIST FEATHER MAKER IDA ARMIJO M.D. Performed By: #### CUU #### [address] UROLOGY OFFICE/CLINIC NOTE Observed: 09/2024 10:05 AM Status: F Source: [facility] Urology Office/Clinic Note Chief Complaint Frequent UTI [...] (7d) 04/05/24 (10d) Cx 05/08/24 >100k Klebsiella (loepz-S) 06/18/24 (7d) 08/11/24 (7d) Cx >100k E [...] will consider cystoscopy w possible UD. Ordered: 41209 Measure Post Void residual urine and/or bladder capacity by US- non- imaging Complex E&M Add on G2211 E&M of Est. Patient Moderate 30-39 Min 17273 Urnls Dip Stick Auto w/o Microscopy POC 87897 2. Urgency incontinence (N39.41: Urge incontinence) S/p Botox 100u 08/30/21. Whiting sxs only improved for a few weeks [...] E&M of Est. Patient Moderate 30-39 Min 13852 Orders: estradiol topical, See Instructions, 42.5 gm, Refill(s) 6, apply a pea-sized amount vaginally and around the urethra 3x per week for UTI prevention, [facility], 178, cm, 08/16/24 9:10:00 EST, Height/Length Dosing, 103, kg, 08/16/24 9:10:00 EST, Weight Do... Follow-up With When Contact Information JAX BECKMAN, SUSAN Miller, URL In 6 months [address] [place] [address] Additional Instructions: Patient Education Antibiotic [...] pneumococcal 23-valent vaccine 04/22/2022 Recorded SARS-CoV-2 (COVID-19) mRNAMUL.[id number] 04/18/2022 Recorded diphtheria/pertussis, acel/tetanus adult 01/13/2022 Recorded [...] Dipstick: 1+ (30 mg/dl) (08/16/24 09:01:00) Specific Arab Urine Dipstick: 1.025 (08/16/24 09:01:00) Urine Appearance Urine Dipstick: Clear (08/16/24 09:01:00) Urine Color Urine Dipstick: Yellow (08/16/24 09:01:00) Urobilinogen Urine Dipstick: Normal 0.2-1 EU/dl (08/16/24 09:01:00) pH Urine Dipstick: 5.5 (08/16/24 09:01:00) Result Comment: Electronical ly Signed By: SUSAN CAMARA PA-C\ke\Date and Time Signed: 08/16/24 10:05 EST AMBULATORY VISIT SUMMARY Observed: 08/16 10:05 AM Status: F Source: [facility] Ambulatory Visit Summary KATHY APARICIO :1940 Visit [...] SUSAN CAMARA PA-C Where: [facility] [address] [place] [address]- You Need to Schedule the Following Appointments Follow Up with JAX PA-C, SUSAN E, URL When: In 6 months Where: [address] [place] [address] Medications What How Much When Instructions New estradiol topical (Estrace 0.1 mg/ g Cream) See instructions Refills: 6 apply a pea-sized amount vaginally and around the urethra 3x per week for UTI prevention Pickup at [facility] Unchanged acetaminophen-oxycodone (acetaminophen-oxycodone 325 mg-5 mg [...] physician if questions or concerns Pharmacy Information [facility]: [address] [place] [phone] Allergies Vantin (Eye swelling) cephalosporins (Swelling, Eye [...] Reviewed: 01/28/2023 Elsevier Patient Education ??? 2023 Powered by Peak. PATIENT EDUCATION Observed: 08/16/2024 10:04 AM Status: F Source: [facility] Patient Education Caregiving Antibiotic Medicine, Adult Antibiotic [...] provider. Document Revised: 01/28/2023 Document Reviewed: 01/28/2023 [employer] Patient Education ? 2023 [employer] DIPSTICK AND MICROSCOPIC Collected: 11:42 AM Status: F Source: [facility] Order Comment: Name Collecti on Type:: Clean-Voided Midstream TYPE CODE TESTS RESULT OUT OF RANGE REFERENCE UNITS LAB UCOL Color,Urine Dark-Yellow Abnormal Alert Yellow LAB UAPP Appearance,Ur ine Cloudy Abnormal Alert Clear LAB USG Specificy Arab,Urine 1.022 Normal 1.001-1.030 LAB UPH pH,Urine 6.0 [...] Negative Negative Result Comment: PERFORMED BY : [place] [address] PATHOLOGIST FEATHER MAKER IDA ARMIJO M.D. LAB URBC RBC,Urine 1 0-4 [HPF] LAB UWBC WBC,Urine Innumerable High 0-4 LAB UCLUMPWBC WBC CLUMP, Urine Many High None Seen LAB USQEPI Squamous Epithelial Cell,Urine 1 0-2 [HPF] LAB UBACT Bacteria,Urin e None Seen None Seen LAB UHYALC Hyaline Casts,Urine 0 0-8 [LPF] LAB MUCUS Mucus,Urine Rare Result Comment: PERFORMED BY : [place] [address] PATHOLOGIST FEATHER MAKER IDA ARMIJO M.D. Performed By: #### ADDONUAPL , CUU #### [address] URINE CULTURE Observed: 08/10/2024 11:42 AM Status: F Source: [facility] ORGANISM: Escherichia coli ( O:ESCCOL) [place] Count >100,000 Aerobic CORNELIA Charge (NMIC56) SUSCEPTIBILITY [...] RESISTANT TO ALL B-LACTAM DRUGS. PERFORMED BY: [facility] [address] [id number] PATHOLOGIST FEATHER MAKER IDA ARMIJO M.D. Performed By: #### ADDONUAPL , PERNELL #### [address] L Observed: 06/15/2024 12:00 AM Status: Morelia Source: [facility] ----- ------- Specimen: [id number] Received: 06/16/24 Status: JEFFERY More Num: [id number] Spec Type: Impression Subm Dr: Tri Ag DO Tissues: PATHPER Procedures: PATHREVIEW ----- ------- Age/ Patient Sex Location Account Attending Physician ----- ------- Kathy Aparicio 83/F LABELL [id number] Tri Vasquez Marker DO ----- ------- SPEC NUM: [id number] RECD: 06/16/24 STATUS: JEFFERY MORE NUM: [id number] JESSICA: 06/15/24- DR: Tri Ag DO ENTERED: 06/16/[address]: Angi Restrepo SPEC TYPE: Impression DEPT: ZOE Lance ENTERED BY: [id number] RECV BY: [id number] ORDERED: PATHREVIEW ORDERED: PATHREVIEW Pathologist Review Peripheral blood smear evaluation: - Severe lymphocytosis with atypical lymphocytes and smudges consistent with CLL, flow cytometry if clinically indicated. - Red blood cell and Platelet: Unremarkable. CPT: 23336 Jose Angel Kc MD 06/16/24 ----- ------- ----- ------- Specimen: [id number] Received: 06/16/24 Status: JEFFERY More Num: [id number] Spec Type: Impression Subm Dr: Tri Ag DO Tissues: PATHPER Procedures: PATHREVIEW ----- ------- Patient: Kathy Aparicio [id number] (Continued) ----- ------- Signed (signature on file) Jose Angel Kc MD 06/16/24 1635 PROGRESS Observed: 06/08/2024 1:05 PM Status: COMPLETED Source: [facility] HNO ID: [id number] Author: YOUNG HERRERA LPN Service: ? Author Type: LICENSED NURSE Type: Progress Notes Filed: 06/08/2024 13:05 Note Text: Eye exam for Plaquenil toxicity received from [facility] . Exam date was 06/07/2024. Exam shows no signs of Plaquenil toxicity. Forms sent for scanning. XR KNEE LT 4V* Observed: 05/26/2024 4:53 PM Status: COMPLETED Source: [facility] [place] [address] XRay Report Signed Patient: Kathy Aparicio MR#: [id number] : 1940 Acct:[id number] Age/Sex: 83 / F ADM Date: 05/26/24 Loc: XD Room: Type: [facility] Attending Dr: Ayanna Vicente DO Copies to: Ayanna Vicente DO Ordering Provider: Ayanna Vicente DO Date of Service: 05/26/24 XR/XR hip LT min 2V(w/wo pelvis)*: M25.552 - Pain in left hip ([id number]) XR/XR knee LT 4V*: M25.552 - Pain [...] Stanford Arndt M.D.05/26/2024 4:55 PM Dictation Location: [place] [address] Transcribed By: [facility] 05/26/241654 Dictated By: Stanford Arndt DO 05/26/241652 Signed By: <Electronically signed by Stanford Arndt DO in OV> 05/26/241654 COMP METAB 2000 PNL SERPL Collected: 2:20 PM Status: F Source: [facility] Order Comment: Specimen Type : BLOOD SPECIMEN Ordering Facility: [facility] Address: [address] [place] [address] TYPE CODE TESTS RESULT OUT OF RANGE REFERENCE UNITS LAB 2885-2(LOINC) Prot SerPl-mCnc 6.9 6.3-8.0 g/dL LAB 1751-7(LOINC) Albumin SerPl-mCnc 4.1 3.9-4.9 g/dL LAB 39016-7(LOINC) Calcium SerPl-mCnc 9.3 8.5-10.2 mg/dL LAB 1975-2(LOINC) Bilirub SerPl-mCnc 0.2 0.2-1.3 mg/dL LAB 6768-6(LOINC) ALP SerPl-cCnc 107 34-123 U/L LAB 1920-8(LOINC) AST SerPl-cCnc 23 13-35 U/L LAB 1742-6(LOINC) ALT SerPl-cCnc 21 7-38 U/L LAB 2345-7(LOINC) Glucose SerPl-mCnc 231 High 74-99 mg/dL Result Comment: The [employer] Diabetes Association (ADA) provides guidance for cutoff [...] Standards of Medical Care in Diabetes 2016, [place] Diabetes Association. Diabetes Care. 2016.39(Suppl 1). LAB 3094-0(LOINC) BUN SerPl-mCnc 36 High 7-21 mg/ dL LAB 2160-0(LOINC) Creat SerPl-mCnc 1.20 High 0.58-0.96 mg/dL LAB 2951-2(LOINC) Sodium SerPl-sCnc 142 136-144 mmol/L LAB 2823-3(LOINC) Potassium SerPl-sCnc 5.3 High 3.7-5.1 mmol/L LAB 2075-0(LOINC) Chloride SerPl-sCnc 105 98-107 mmol/L LAB 2028-9(LOINC) CO2 SerPl-sCnc 26 22-30 mmo l/L LAB 82006-5(LOINC) Anion Gap SerPl-sCnc 11 8-15 mmol/L LAB 86670-6(LOINC) Creatinine + eGFR Pnl SerPlBld 46 Low [...] Performed By: #### 2532-0, 2 432-8 #### [facility] CLIA [id number] [address] [place] [address] LDH SERPL-CCNC Collected: 05/26/2024 2:20 PM Status: F Source: [facility] Order Comment: Specimen Type : BLOOD SPECIMEN Ordering Facility: [facility] Address: [address] [place], [place] [address] TYPE CODE TESTS RESULT OUT OF RANGE REFERENCE UNITS LAB 2532-0(LOINC) LDH SerPl-cCnc 184 135-214 U/L Performed By: #### 2532-0, 2 432-8 #### [facility] CLIA [id number] [address] [place] [address] CBC W AUTO DIFF BLD Collected: 05/26/2024 2:[address] atus: F Source: [facility] Order Comment: Specimen Type : BLOOD SPECIMEN Ordering Facility: [facility] Address: [address] [place] [address] TYPE CODE TESTS RESULT OUT OF RANGE [...] MCHC RBC Auto-mCnc 33.1 30.5-36.0 g/dL LAB 19356-5(LOINC ) RDW RBC-Rto 14.2 11.5-15.0 % LAB 777-3(LOINC) Platelet # Bld Auto 244 150-400 k/uL LAB 51126-1(LOINC ) PMV Bld Auto 10.4 9.0-12.7 fL LAB 64147-7(LOINC ) nRBC/100 WBC Bld-Rto 0.0 /100 WBC [...] # Bld Auto 0.00 <0.11 k/uL LAB 97376-9(LOINC ) Platelet # Bld Est Adequate LAB RBCMORBEAKER1 RED CELL MORPH Reviewed: se e results of individual morphologies LAB 73172-7(INC ) Polychromasia Bld Ql Smear Slight LAB 774-0(LOINC) Ovalocytes Bld Ql Smear Few LAB 33693-3(LOINC ) Differential method Bld Manual Performed By: #### 76031-0 # ### [facility] CLIA [id number] [address] [place] [address] [facility] CLIA [id number] [address] [place] CNOVSP Observed: 05/26/2024 2:00 PM Status: COMPLETED Source: [facility] Visit (SP) Office (HEMASA) KATHY APARICIO ([id number]) 1940 F Date Time Provider Department 05/26/24 2:00 PM CHAD FREITAS During your visit today, we recorded the following information about you: Temperature Pulse Respiration Blood pressure 97 degrees 70/minute 16/minute 92/51 Weight Height 105.3 kg 1.727 m Chad Freitas MD 05/26/2024 2:41 PM Signed PATIENT NAME: Kathy Aparicio CLINIC NO.: [id number] ATTENDING PHYSICIAN: Chad Freitas MD DATE OF [...] sweats - Did mammogram last week at [facility]. - Scheduled to see Dresser Tender PAST MEDICAL HISTORY Diagnosis Date Depression Diabetes [...] Range Status 08/08/2023 2.0 % Final Abs Archer Date Value Ref Range Status 08/08/2023 0.39 [...] do not hesitate to contact me at [phone]. Chad Freitas MD Hematology/Medical Oncology [facility] I spent a total of 20 minutes on the date of the service which included preparing to see the patient, srfx-nt-bcyx patient care, completing clinical documentation, obtaining and/or reviewing separately obtained history, counseling and educating the patient/family/caregiver, and ordering medications, tests, or procedures. CC: DO Zena Resendiz Adarsh, MD 05/26/2024 2:09 PM Signed Labs today F/u in 6 months Referring Provider: FRANCINE TELLO [[id number]] Allergies As of Date: 05/26/2024 Noted Allergy Reaction CEPHALOSPORINS 02/20/2004 4 - Hives 7 - Swelling VANTIN (CEFPODOXIME) 04/03/2022 16 - Unknown Date Reviewed: 05/26/2024 Reviewed by: Lluvia Samuel MA - Fully Assessed Reason for Visit: Leukemia [559] Transition Of Care [4074] Primary Visit Diagnosis:CLL (chronic lymphocytic leukemia) (HCC) [C91.10] Order(s):COMPLETE BLOOD COUNT AND DIFFERENTIAL [SQCBCDIF] Order #: [id number] FUTURE COMPREHENSIVE METABOLIC PANEL [SQCMP] Order #: [id number] FUTURE LACTATE DEHYDROGENASE [SQLD6] Order #: [id number] FUTURE Level of Service: OFFICE/OUTPATIENT ESTABLISHED LOW MDM 20 MIN [92548] Additional E/M codes: VISIT CPLX INHERENT EANDM ASSOC WITH MED * Disposition: Return in about 6 months (around 11/23/2024). Follow-up and Disposition History for Encounter Date Provider Department Center 05/26/2024 [id number], ADA*[facility] Samina Prescriptions as of 05/26/2024 [...] Observed: 05/26/2024 2:00 PM Status: COMPLETED Source: [facility] ID: [id number] Author: CHAD FREITAS MD Service: ? Author Type: Physician Type: Progress Notes Filed: 05/26/2024 14:41 Note Text: PATIENT NAME: Kathy Aparicio CLINIC NO.: [id number] ATTENDING PHYSICIAN: Chad Freitas MD DATE OF [...] sweats - Did mammogram last week at [facility]. - Scheduled to see Dresser Tender PAST MEDICAL HISTORY Diagnosis Date Depression Diabetes [...] Range Status 08/08/2023 2.0 % Final Abs Archer Date Value Ref Range Status 08/08/2023 0.39 [...] do not hesitate to contact me at [phone]. Chad Freitas MD Hematology/Medical Oncology [facility] Jackson spent a total of 20 minutes on the date of the service which included preparing to see the patient, ufsu-em-clxf patient care, completing clinical documentation, obtaining and/or reviewing separately obtained history, counseling and educating the patient/family/caregiver, and ordering medications, tests, or procedures. CC: Ayanna Vicente DO MM SCREENING MAMMO BI W/CAD Observed: 05/18/2024 2:59 PM Status: COMPLETED Source: [facility] [place] [address] Mammography Report Signed Patient: Kathy Aparicio MR#: [id number] : 1940 Acct:[id number] Age/Sex: 83 / F ADM Date: 05/18/24 Loc: [place] Room: Type: [facility] Attending Dr: Ayanna Vicente DO Copies to: [...] Stanford Arndt M.D.05/18/2024 3:23 PM Dictation Location: [facility] Transcribed By: STAS 05/18/24 152 Dictated By: Stanford Arndt DO 05/18/24 1459 Signed By: <Electronically signed by Stanford Arndt DO in OV> 05/18/24 152 CNOV Observed: 05/17/2024 1:00 PM Status: COMPLETED Source: [facility] Office Visit (RHEUAV) KATHY APARICIO ([id number]) 1940 F Date Time Provider Department 05/17/24 1:00 PM ZOHAIB MORROW During your visit today, we recorded the following information about you: Pulse Blood pressure Weight Height 62/minute 117/75 103.4 kg 1.727 m Zohaib Morrow MD 05/17/2024 1:34 PM Signed Rheumatology Outpatient Clinic Date of Service: 05/17/2024 Patient: Kathy Aparicio Medical Record: [id number] Primary Care Physician: Ayanna Vicente DO Last Rheumatology visit: None at [facility] Referring Provider: No referring provider defined [...] Reviewed on 07/19/2022 Name Date COVID-19 vaccine ([employer]) 03/19/2024, 06/23/2023 COVID-19 vaccine, bivalent (P[employer]BION[employer]) 04/18/2022 [...] complication, with long-term current use of insulin ([facility]) Plan Orders this visit: Office Visit on [...] which included preparing to see the patient, tncf-dj-ihnp patient care, completing clinical documentation, obtaining and/or reviewing separately obtained history, performing a medically appropriate examination, counseling and educating the patient/family/caregiver, and ordering medications, tests, or procedures. Medical Decision Making: Problems: Moderate: 1+ chronic illnesses with change and New problem with uncertain prognosis Risk: High: High risk from testing/treatment Medical Decision Making Level: 4 - Moderate Zhoaib Morrow MD Rheumatology Date: May 17, 2024 [...] for Encounter Date Provider Department Center 05/17/2024 [id number] MORROW RHEUAV Rej Annotated image of Homunculus image last updated by Zohaib Morrow MD on 05/17/2024 1:34 PM Letter Text Encounter Status:Closed by ZOHAIB MORROW on 05/17/24 PROGRESS Observed: 05/17/2024 12:56 PM Status: COMPLETED Source: [facility] HNO ID: [id number] Author: ZOHAIB MORROW MD Service: ? Author Type: Physician Type: Progress Notes Filed: 05/17/2024 13:34 Note Text: Rheumatology Outpatient Clinic Date of Service: 05/17/2024 Patient: Kathy Aparicio Medical Record: [id number] Primary Care Physician: Ayanna Vicente DO Last Rheumatology visit: None at [facility] Referring Provider: No referring provider defined [...] Reviewed on 07/19/2022 Name Date COVID-19 vaccine ([employer]) 03/19/2024, 06/23/2023 COVID-19 vaccine, bivalent ([employer]) 04/18/2022 COVID-19 vaccine, monovalent (P[employer]) 06/01/2021, 09/01/2020, 08/11/2020 Physical Exam GENERAL APPEARANCE: [...] complication, with long-term current use of insulin ([facility]) Plan Orders this visit: Office Visit on [...] which included preparing to see the patient, cptk-au-gcnt patient care, completing clinical documentation, obtaining and/or [...] MICROSCOPIC Collected: 12:31 PM Status: F Source: [facility] Order Comment: Name Collecti on Type:: Clean-Voided Midstream TYPE CODE TESTS RESULT OUT OF RANGE REFERENCE UNITS LAB UCOL Color,Urine Yellow Yellow LAB UAPP Appearance,Uri ne Clear Clear LAB USG Specificy Arab,Urine 1.020 Normal 1.001-1.030 LAB UPH pH,Urine 5.5 [...] High 0-1 Result Comment: PERFORMED BY : [place] [address] PATHOLOGIST FEATHER MAKER MATHIEU RASCON M.D. Performed By: #### LIPID, A1 C WTH eA, T4F, URMACRERAT, TSH3, CUU, CMP, ADDONUAPLUS, T3T #### [place] [id number] [facility] MICROALB CREAT RATIO,U Collected: 05/06 12:31 PM Status: F Source: [facility] TYPE CODE TESTS RESULT OUT OF RANGE [...] J. Kidney Disease 1994, 25:107) PERFORMED BY: [place], [place] [address] PATHOLOGIST FEATHER MAKER MATHIEU RASCON M.D. Performed By: #### LIPID, A1 C WTH eA, T4F, URMACRERAT, TSH3, CUU, CMP, ADDONUAPLUS, T3T #### [place] [id number] [facility] COMPREHENSIVE METABOLIC PANEL Collected: 05/06/2024 1 2:31 PM Status: F Source: [facility] TYPE CODE TESTS RESULT OUT OF RANGE [...] URMACRERAT, TSH3, CUU, CMP, ADDONUAPLUS, T3T #### [facility] [address] [place] [address] [facility] LIPID PANEL Collected: 05/06/2024 12:31 PM Status: F Source: [facility] TYPE CODE TESTS RESULT OUT OF RANGE [...] URMACRERAT, TSH3, CUU, CMP, ADDONUAPLUS, T3T #### [address] FREE T4 (FREE THYROXINE) Collected: 12:31 PM Status: F Source: [facility] TYPE CODE TESTS RESULT OUT OF RANGE REFERENCE UNITS LAB T4F Free T4 (Free Thyroxine) 0.94 Normal 0.61-1.12 ng/dL Performed By: #### LIPID, A1 C WTH eA, T4F, URMACRERAT, TSH3, CUU, CMP, ADDONUAPLUS, T3T #### [place] [id number] [facility] TRIIODOTHYRONINE (T3) TOTAL Collected: 05/06/2024 12: 31 PM Status: F Source: [facility] TYPE CODE TESTS RESULT OUT OF RANGE REFERENCE UNITS LAB T3T Triiodothyronine (T3) Total 0.89 Normal 0.87-1.78 ng/mL Performed By: #### LIPID, A1 C WTH eA, T4F, URMACRERAT, TSH3, CUU, CMP, ADDONUAPLUS, T3T #### [place] [id number] [facility] THYROID STIMULATING HORMONE Collected: 05/06/2024 12:31 PM Status: F Source: [facility] TYPE CODE TESTS RESULT OUT OF RANGE REFERENCE UNITS LAB TSH3 Thyroid Stimulating Hormone 1.93 Normal 0.45-5.33 u[iU]/mL Result Comment: PERFORMED BY : [place] [address] PATHOLOGIST FEATHER MAKER MATHIEU RASCON M.D. Performed By: #### LIPID, A1 C WTH eA, T4F, URMACRERAT, TSH3, CUU, CMP, ADDONUAPLUS, T3T #### [address] URINE CULTURE Observed: 05/06/2024 12:31 PM Status: F Source: [facility] ORGANISM: Klebsiella variico la (O:KLEVAR) [place] Count >100,000 Aerobic CORNELIA Charge (NMIC56) SUSCEPTIBILITY [...] RESISTANT TO ALL B-LACTAM DRUGS. PERFORMED BY: [place] [address] PATHOLOGIST FEATHER MAKER MATHIEU RASCON M.D. Performed By: #### LIPID, A1 C WTH eA, T4F, URMACRERAT, TSH3, CUU, CMP, ADDONUAPLUS, T3T #### [facility] [address] [place] [id number] [facility] A1C WITH ESTIMATED AVERAGE GLU Collected: 05/06/2024 12:31 PM Status: F Source: [facility] TYPE CODE TESTS RESULT OUT OF RANGE REFERENCE UNITS LAB .A1C Hemoglobin A1C 8.4 High 4.3-5.6 % Result Comment: Increased ri sk for diabetes: 5.7 - 6.4 diabetes: >6.4 glycemic control for adults with diabetes: <7.0 LAB eAG Estimated Average Glucose 194 mg/dL Result Comment: PERFORMED BY : [place] [id number] PATHOLOGIST FEATHER MAKER MATHIEU RASCON M.D. Performed By: #### LIPID, A1 C WTH eA, T4F, URMACRERAT, TSH3, CUU, CMP, ADDONUAPLUS, T3T #### [place] [id number] [facility] AMBULATORY VISIT SUMMARY Observed: 02/23 10:44 AM Status: F Source: [facility] Ambulatory Visit Summary KATHY APARICIO :1940 Visit [...] (no labs) Where: [address] [place] [address] [id number] Medications What How Much When Why Instructions [...] health care provider. General instructions ? Take zzap-lzm-mqysauq and prescription medicines only as told by [...] provider. Document Revised: 03/19/2021 Document Reviewed: 03/19/2021 ElseI'mOK Patient Education ? 2022 Powered by Peak. REMINDERS Observed: 02/24/2024 10:44 AM Status: C Source: [facility] Reminders From: Lori Bledsoe To: EU - Administrative; Sent: 02/24/2024 10:44:10 EDT Show up: 06/25/2024 09:43:00 EST Subject: 6 MO F/U Due Date/Time: 08/26/2024 09:43:00 EST Reminder/Recall PT SEEN ON 02/24/2024 BY JINNY IN [place]. PT WILL NEED A 6 MO F/U. APPT DUE BY 08/26/2024 NO ANSWER Pt is scheduled for 02/14/25. UROLOGY OFFICE/CLINIC NOTE Observed: 10:43 AM Status: F Source: [facility] Urology Office/Clinic Note Chief Complaint 1 year [...] (N32.81: Overactive bladder) S/p Botox 100u 08/30/21. -Whiting sxs only improved for a few weeks [...] Contact Information JAX BECKMAN, SUSAN Miller, URL [address] [place] [phone] Additional Instructions: 6 mos (no labs) Patient [...] Protein Urine Dipstick: Negative (02/24/24 10:20:00) Specific Arab Urine Dipstick: 1.025 (02/24/24 10:20:00) Urine Appearance [...] Observed: 02/24/2024 10:42 AM Status: F Source: [facility] Patient Education Obstetrics and Gynecology Overactive Bladder, [...] health care provider. General instructions ? Take ccqx-wjl-ahjjqgf and prescription medicines only as told by [...] provider. Document Revised: 03/19/2021 Document Reviewed: 03/19/2021 ElseI'mOK Patient Education ? 2022 [employer] ALLERGIES DATE TYPE / CODE NAME / CODE REACTION SEVERITY SOURCE 08/11/2024 Drug Allergy/4160 45447(SNOMED CT) Cephalosporins/C38826 0477(RXNORM) Swelling of Lip/Tongue/Throa t Unknown [facility] 08/11/2024 Drug Allergy/4160 07978(SNOMED CT) neomycin/E480068875(R XNORM) Unknown Reaction Unknown [facility] 08/11/2024 Drug Allergy/4160 01574(SNOMED CT) bacitracin/V956026916 (RXNORM) Unknown Reaction Unknown [facility] 08/11/2024 Drug Allergy/4160 22341(SNOMED CT) polymyxin B/H191636329(RXNORM) Unknown Reaction Unknown [facility] 04/03/2022 DRUG INGREDI/4195 03782(SNOMED CT) CEFPODOXIME UNKNOWN [facility] 02/20/2004 Drug Class/332771 003(SNOMED CT) CEPHALOSPORINS HIVES [facility] DR/561807663 (SNOMED CT) cephalosporins 972416959~672998 [address] [facility] DR/318085432 (SNOMED CT) Vantin [id number] [facility] ENCOUNTERS ADMIT/DISCHARGE ACCOUNT NUMBER ADMITTING ENCOUNTER CLASS LOCATION SOURCE 01/12/2025/01/13/20 [id number] Ambulatory Building:[facility] 12/27/2024/12/28/19 [id number] [place] [facility] 12/17/2024/12/18/19 25 [id number] [facility] 11/01/2024/11/02/19 25 [id number] [facility] [place]/11/2024/10/12/19 25 [id number] [facility] [place] 09/03/2024/09/03/19 25 [id number] Ayanna Vicente [facility] 08/16/2024/08/16/19 25 [id number] Ambulatory EU [place]:EU [place] : CD:[id number] [address] [facility] 08/16/2024/08/16/19 [id number] Ambulatory PM [place] [facility] 08/10/2024/08/10/19 [id number] Ayanna Vicente [facility] 08/09/2024/08/09/19 [id number] Ambulatory Building:BSR NEURO [facility] 08/04/2024/08/04/19 [id number] Ambulatory Building:ST NEURO [facility] 07/26/2024/07/26/19 [id number] Ambulatory [place] 07/12/2024/07/12/20 24 [id number] Ambulatory PM [place]:[facility] 06/28/2024/06/28/20 24 [id number] Ambulatory Building:ST NEURO [facility] 06/23/2024/06/23/20 24 [id number] Ambulatory Building:NOM S [facility] 06/17/2024/06/17/20 24 [id number] Ambulatory Building:BSR NEURO [facility] 06/15/2024/06/15/20 24 [id number] Tri Ag [facility]OM[facility] 06/14/2024/06/14/20 24 [id number] Ambulatory PM [place]:PM [facility] 06/07/2024/06/07/20 24 [id number] Ambulatory PM [place]:PM [facility] 05/26/2024/05/26/20 24 [id number] [facility]SALB [facility] 05/26/2024/05/26/20 24 [id number] [facility]HESA [facility] 05/26/2024/05/26/20 24 [id number] Ayanna Vicente [facility]JESUS [facility] 05/18/2024/05/18/20 24 [id number] Ayanna Vicente [facility] 05/17/2024/05/17/20 [id number] [facility]BEVERLY [facility] 05/06/2024/05/06/20 [id number] Ayanna Vicente [facility] 02/24/2024/02/24/20 [id number] Ambulatory EU [place]:EU Jose RafaelueRoom : Exam [address] [facility] 02/03/2024/02/03/20 [id number] Ambulatory Building:NOM S [facility] EPIC PAYERS ENCOUNTER GUARANTOR PAYER SUBSCRIBER SOURCE 01/12/2025 KATHY SALAS: [place] [address]Uqg: () Primary Insurance:MEDICAREPolic y Number: [id number] Date:8915-34-07Coqw Name:Medicare KATHY L SIMONE: [id number] [facility] [place] [address] [facility] 01/12/2025 Secondary Insurance:AARPPolicy Number: [id number] Date:2022-07-14 KATHY SALAS: [id number] [place] [address] [facility] 12/27/2024 Kathy AshB: [place] [address] Primary Insurance:MedicarePolic y Number: Effective Date:0558-73-43Duxt Name:MEDPO [address]Zvtvdtfp, [place] [address]EW: Kathy Salas: [id number] [place] [address] [facility] 12/27/2024 Secondary Insurance:AARPPolicy Number: Effective Date:4763-64-91Kozx Name:COMP [address], [place] [address]RI: Kathy AparicioDOB: [id number] [place] [address] [facility] 12/17/2024 Primary Insurance:MEDICARE A AND BPolicy Number: [id number] Date:1640-36-91Zfww Name:P KATHY ASHB: [id number] [facility], [address] 12/17/2024 Secondary Insura nce:[facility] AARP SUPPLEMENTPolicy Number: [id number] Date:7902-21-51Tdsd Name:Joslyn ASHB: [id number] [facility] 11/01/2024 Kathy AparicioDOB: [facility], [facility] Primary Insurance:MedicarePolic y Number: Effective Date:5633-73-58Nijm Name:MED [address]kp[place] [address]UB: Kathy AparicioDOB: [id number] [place] [address] [facility] 11/01/2024 Secondary Insurance:AARPPolicy Number: Effective Date:6763-57-21Ksub Name:[facility] [address], [place] [address]JE: Kathy NoellyDOB: [id number] [place] [address] [facility] 10/11/2024 Kathy NoellyDOB: [place] [address] Primary Insurance:MedicarePolic y Number: Effective Date:4535-24-91Macp Name:MED[address]wpuxpc[place] [address]KU: Kathy AparicioDOB: [id number] [place] [address] [facility] 10/11/2024 Secondary Insurance:AARPPolicy Number: Effective Date:8208-71-82Qfzr Name:ADRIAN [address] [address]WV: Kathy AshB: [id number] [place] [address] [facility] 09/03/2024 Kathy Case [facility] [place] [address]Jzz: (HP) Primary Insurance:Self PayPolicy Number: Effective Date:2024-09-03 [facility] 08/16/2024 KATHY ASHB: [address] PLTel: ~ ~( 41 (HP) Primary Insurance:MEDICAREPolic y Number: [id number] Date:9929-97-86[address] [address]OUDLWGXYU, [place] [address]HK: [facility] 08/16/2024 Secondary Insurance:AARPPolicy Number: [id number] Date:8960-87-27VM [address]KK[address] 367700IMIHTQNS[place], [place] [address]BZ: [facility] 08/16/2024 Kathy AshB: [facility] [place] [address] Primary Insurance:MedicarePolic y Number: Effective Date:6706-02-64Azsg Name:MEDPO [address]vn[place], [place] [address]IJ: Kathy AshB: [id number] [place] [address] [facility] 08/16/2024 Secondary Insurance:AARPPolicy Number: Effective Date:3706-82-12Socj Name:COMP [address]Bs[place]x, [place] [address]RU: Kathy AshB: [id number] [place] [address] [facility] 08/10/2024 [place] [address]Qkz: () Primary Insurance:MedicarePolic y Number: [id number] Date:2024-08-10 Kathy AshB: [id number] [place] [address]Nxf: () [facility] 08/10/2024 Secondary Insurance:[facility] ClaimsPolicy Number: [id number] Date:2024-08-10 Kathy AshB: [id number] [place] [address]Tml: (HP) [facility] 08/10/2024 Tertiary Insuran ce:Self PayPolicy Number: Effective Date:2024-08-10 [facility] 08/09/2024 KATHY ASHB: [place] [address]Jgb: () Primary Insurance:MEDICAREPolic y Number: [id number] Date:0981-46-79Elmq Name:Medicare KATHY ASHB: [id number] [place] [address] [facility] 08/09/2024 Secondary Insurance:AARPPolicy Number: [id number] Date:2022-07-14 KATHY ASHB: [id number] [place] [address] [facility] 08/04/2024 KATHY APARICIOB: [place] [address]Uye: () Primary Insurance:MEDICAREPolic y Number: [id number] Date:7614-26-91Carh Name:Medicare KATHY ASHB: [id number] [place] [address] [facility] 08/04/2024 Secondary Insurance:AARPPolicy Number: [id number] Date:2022-07-14 KATHY ASHB: [id number] [place] [address] [facility] 07/26/2024 Kathy AshB: [facility] [place] [address] Primary Insurance:MedicarePolic y Number: Effective Date:8227-50-77Rydq Name:[facility] [address]wszqt, [place] [address]FX: Kathy AparicioDOB: [id number] [facility] [place] [address] [facility] 07/26/2024 Secondary Insurance:AARPPolicy Number: Effective Date:1766-34-40Ponb Name:[facility] [address], [place] [address]ZI: Kathy AparicioDOB: [id number] [facility] [place] [address] [facility] 07/12/2024 Kathy AparicioDOB: [facility] [place] [address] Primary Insurance:MedicarePolic y Number: Effective Date:6642-22-76Ddcc Name:MEDPO [address]204HvdvazpiCAM[place] [address]VU: Kathy AparicioDOB: [id number] [facility] [place] [address] [facility] 07/12/2024 Secondary Insurance:AARPPolicy Number: Effective Date:6414-06-80Zrqd Name:ADRIAN [address], [place] [address]NL: Kathy AparicioDOB: [id number] [place] [address] [facility] 06/28/2024 KATHY NOELLYDOB: [place] [address]Yuj: (HP) Primary Insurance:MEDICAREPolic y Number: [id number] Date:8685-97-10Gmna Name:Medicare KATHY APARICIODOB: [id number] [place] [address] [facility] 06/28/2024 Secondary Insurance:AARPPolicy Number: [id number] Date:2022-07-14 KATHY APARICIODOB: [id number] [place] [address] [facility] 06/23/2024 KATHY NOELLYDOB: [place] [address]Slo: (HP) Primary Insurance:MEDICAREPolic y Number: [id number] Date:8436-59-10Pjof Name:Medicare KATHY NOELLYDOB: [id number] [place] [address] [facility] 06/23/2024 Secondary Insurance:AARPPolicy Number: [id number] Date:2022-07-14 KATHY NOELLYDOB: [id number] [place] [address] [facility] 06/17/2024 KATHY NOELLYDOB: [place] [address]Kyb: (HP) Primary Insurance:MEDICAREPolic y Number: [id number] Date:2243-63-59Uwci Name:Medicare KATHY ASHB: [id number] [place] [address] [facility] 06/17/2024 Secondary Insurance:AARPPolicy Number: [id number] Date:2022-07-14 KATHY APARICIODOB: [id number] [place] [address] [facility] 06/15/2024 [place] [address]Xls: () Primary Insurance:Self PayPolicy Number: Effective Date:2024-06-15 [facility] 06/14/2024 Kathy AshB: [place] [address] Primary Insurance:MedicarePolic y Number: Effective Date:2667-31-09Wpyx Name:[facility] [address]Iqadpdnl, [place] [address]IU: Kathy AparicioDOB: 3267-35-75MSS247 [facility] [address] [facility] 06/14/2024 Secondary Insurance:AARPPolicy Number: Effective Date:4458-68-11Dcrq Name:[facility] [address], [place] [address]RV: Kathy AparicioDOB: [id number] [place] [address] [facility] 06/07/2024 Kathy NoellyDOB: [place] [address] Primary Insurance:MedicarePolic y Number: Effective Date:7533-25-56Pmki Name:[facility] [address]yraz[place] [address]VW: Kathy NoellyDOB: [id number] [facility] [place] [address] [facility] 06/07/2024 Secondary Insurance:AARPPolicy Number: Effective Date:7456-96-31Zbsr Name:AD[place]AN [address]22[place], [place] [address]FP: Kathy AparicioDOB: [id number] [place] [address] [facility] 05/26/2024 Primary Insurance:MEDICARE A AND BPolicy Number: [id number] Date:9941-80-09Stpo Name:Casi ASHB: [id number] [place] [address] [facility] 05/26/2024 Secondary Insura nce:[facility] AARP SUPPLEMENTPolicy Number: [id number] Date:9822-86-28Bgvp Name:Joslyn ASHB: [id number] [place] [address] [facility] 05/26/2024 Primary Insurance:MEDICARE A AND BPolicy Number: [id number] Date:2687-50-18Bpty Name:Casi ASHB: [id number] [place] [address] [facility] 05/26/2024 Secondary Insura nce:[facility] AARP SUPPLEMENTPolicy Number: [id number] Date:2870-60-77Ljhb Name:Joslyn ASHB: [id number] [place] [address] [facility] 05/26/2024 Kathy Noelly[address] [place] [address]Cil: (HP) Primary Insurance:MedicarePolic y Number: [id number] Date:2024-05-26 Kathy AparicioDOB: 9588-97-97FDS699 [place] [address]Jni: (HP) [facility] 05/26/2024 Secondary Insurance:AARP Health ClaimsPolicy Number: [id number] Date:2024-05-26 Kathy Salas: [id number] [place] [address]Odr: () [facility] 05/26/2024 Tertiary Insuran ce:Self PayPolicy Number: Effective Date:2024-05-26 [facility] 05/18/2024 Kathy Ochoashjudy [place], [facility]Zpj: () Primary Insurance:MedicarePolic y Number: [id number] Date:2024-05-12 Kathy Salas: [id number] [place] [address]Tdo: () [facility] 05/18/2024 Secondary Insurance:[facility] Health ClaimsPolicy Number: [id number] Date:2024-05-12 Kathy AshB: [id number] [place] [address]Puh: () [facility] 05/18/2024 Tertiary Insuran ce:Self PayPolicy Number: Effective Date:2024-05-14 [facility] 05/17/2024 Primary Insurance:MEDICARE A AND BPolicy Number: [id number] Date:3159-94-77Ized Name:P KATHY ASHB: [id number] [place] [address] [facility] 05/17/2024 Secondary Insura nce:[facility] AAR SUPPLEMENTPolicy Number: [id number] Date:0853-88-10Ttmu Name:Joslyn ASHB: [id number] [place] [address] [facility] 05/06/2024 [place] [address]Zje: (HP) Primary Insurance:MedicarePolic y Number: [id number] Date:2024-05-06 Kathy AshB: [id number] [address]Mff: (HP) [facility] 05/06/2024 Secondary Insurance:AAR Health ClaimsPolicy Number: [id number] Date:2024-05-06 Kathy AshB: [id number] [place] [address]Pgk: (HP) [facility] 05/06/2024 Tertiary Insuran ce:Self PayPolicy Number: Effective Date:2024-05-06 NOT GIVENUNK [facility] 02/24/2024 KATHY ASHB: [facility] PLTel: ~ ~( 41 (HP) Primary Insurance:MEDICAREPolic y Number: [id number] Date:0341-30-27[address]CUJBJ[address] [place] [address]KI: KATHY GONZALEZ [facility] 02/24/2024 Secondary Insurance:AARPPolicy Number: [id number] Date:1963-64-07[address], [place] [address]MA: KATHY GONZALEZ [facility] 02/03/2024 KATHY ASHB: [place] [address]Jya: (HP) Primary Insurance:MEDICAREPolic y Number: [id number] Date:3542-38-65Yqva Name:Medicare KATHY ASHB: [id number] [place] [address] [facility] 02/03/2024 Secondary Insurance:AARPPolicy Number: [id number] Date:2022-07-14 KATHY SALAS: [id number] [place] [address] [facility] EPIC
--- OUTSIDE RECORDS SUMMARY | 2025-01-12 13:30 | XMS_ITS | Encounter Summary ---
Author Organization [facility] Address [address] [place] [address] Care Team Providers Care Riverboat Master Name Role Phone Dmitriy Presley MD Primary Care Provider [phone] Maco Guillaume DO Unavailable [phone] Reason for Visit * Reason Comments Schedule colonoscopy Encounter Details Date Type Department Care Team (Late st Contact Info) Description 01/12/2025 1:30 PM EDT Office Visit [facility] [address] [facility] [address] [place] [id number] Keith Iglesias DO [address] [employer] [address] [place] [address] Diarrhea, unspecified type (Primary Dx) [...] Kathy Washburn 1940 Kathy Washburn is a 84 y.o. female presents [...] urethra 3x per week for UTI prevention, [employer] #72, 178, cm, 08/16/24 9:10:00 EST, Height/Length [...] replacement OTHER SURGICAL HISTORY 1999 fissure repair NE REPAIR SLIDING INGUINAL HERNIA Hernia, inguinal TOTAL [...] 5' 9 Wt 225 lb BMI 33.23 kg/m?? Smoking Status Never BSA 2.23 m?? Physical Exam HENT: Head: Normocephalic. 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
--- OUTSIDE RECORDS SUMMARY | 2025-01-17 13:56 | XMS_ITS | Encounter Summary ---
Author Organization [facility] Address [facility] [place] [address] Care Team Providers Care Tax Director Name Role Phone Dmitriy Presley DO Primary Care Provider [phone] Dmitriy Presley DO Unavailable [phone] Dmitriy Presley DO Unavailable Source Comments In the event this information is protected by the Federal Confidentiality of Alcohol and Drug AbusePatient Records regulations: The Federal rules restrict any use of the information to criminally investigate or prosecute any alcohol or drug abuse patient.[facility] Encounter Details Date Type Department Care Team (Late st Contact Info) Description 11/11/2024 Patient [facility] -[address] [place] [address] Leona Romero RPh At your next appointment, choose [facility]. Social History Tobacco Use Types [...] is lower risk 4 02/07/2023 Data from: https://www.neighborhoodatlas.medicine.[facility].edu/. Last address used for calculation [address] [...] 12/19/2025 11:00 AM EDT Office Visit Rheumatology [address] [place] [address] [place] [address] [facility] [place] [address] Return in about 1 year (around 12/17/2025). documented as of this encounter Visit Diagnoses Not on filedocumented in this encounter Care Teams Tax Director Relationship Specialty Start Date End Date Dmitriy Presley DO [address] [place] [address] PCP - General Family Medicine 08/01/11 Dmitriy Presley DO [address] [place] [address] Referring Family Medicine 10/04/20 Dmitriy Presley DO [address] [place] [address] Referring Family Medicine 01/09/21 documented as of this encounter
--- OUTSIDE RECORDS SUMMARY | 2025-01-17 13:56 | XMS_ITS | Clinical Summary ---
Author Organization [facility] Address [address] [place] [address] Care Team Providers Care Solutions Architect Consultant Name Role Phone Dmitriy Presley MD Primary Care Provider [phone] Maco Guillaume DO Unavailable [phone] Allergies Active Allergy Reactions Criticality Noted Date [...] urethra 3x per week for UTI prevention, [facility] #72, 178, cm, 08/16/24 9:10:00 EST, [...] EDT Office Visit [facility] [address] [facility] [address] [place] [address] Keith Iglesias, Diarrhea, unspecified type (Primary Dx) [...] EDT Office Visit [facility] [address] [facility] [address] [place] [id number] Keith Iglesias DO [address] [facility] [address] [place] [address] Health Maintenance Due Date Last Done Comments Influenza Vaccine (#1) 2025 4, 04/15/2023, 04/25/2021, Additional history exists Pneumococcal Vaccine: 65+ Years Completed 06/23/2023, 04/22/2022, 07/14/2019, Additional history exists Insurance MEDICARE [facility] Care Teams Solutions Architect Consultant Relationship Specialty Start Date End Date Dmitriy Presley MD [address] [place] [address] [place] [address] PCP - General Family Medicine 12/10/22 Maco Guillaume DO [address] [place] [address] Referring Physician Neurology 08/09/24
--- OUTSIDE RECORDS SUMMARY | 2025-01-17 13:56 | XMS_ITS | Encounter Summary ---
Author Organization [facility] Address [address] [place] [address] Care Team Providers Care Recording Studio Setup Worker Name Role Phone Dmitriy Presley DO Primary Care Provider [phone] Dmitriy Presley DO Unavailable [phone] Dmitriy Presley DO Unavailable [phone] Source Comments In the event this information is protected by the Federal Confidentiality of Alcohol and Drug AbusePatient Records regulations: The Federal rules restrict any use of the information to criminally investigate or prosecute any alcohol or drug abuse patient.[facility] Encounter Details Date Type Department [...] N ot on file 03/12/2021 Data from: https://www.neighborhoodatlas.medicine.[facility]/. Last address used for calculation Not [...] 12/19/2025 11:00 AM EDT Office Visit Rheumatology [address] [place] [address] [place] [address] [facility] [place] [address] Return in about 1 year (around 12/17/2025). documented as of this encounter Visit Diagnoses Not on filedocumented in this encounter Care Teams Recording Studio Setup Worker Relationship Specialty Start Date End Date Dmitriy Presley DO [address] [place] [address] PCP - General Family Medicine 08/01/11 Dmitriy Presley DO [address] [place] [address] Referring Family Medicine 10/04/20 Dmitriy Presley DO [address] [place] [address] Referring Family Medicine 01/09/21 documented as of this encounter
--- OUTSIDE RECORDS SUMMARY | 2025-01-17 13:56 | XMS_ITS | Clinical Summary ---
Author Organization [facility] Address [address] [place] [address] Care Team Providers Care Galley Hand Name Role Phone Dmitriy Presley DO [...] [employer]ARE MEDICARE SUPP Care Teams Galley Hand Relationship Specialty Start Date End Date Dmitriy Presley DO PCP - General Family Medicine 02/05/19
--- OUTSIDE RECORDS SUMMARY | 2025-01-17 13:56 | XMS_ITS | Encounter Summary ---
Author Organization [facility] Address [address] [place] [address] Care Team Providers Care Wire Border Assembler Name Role Phone Dmitriy Presley MD Primary Care Provider [phone] Maco Guillaume DO Unavailable [phone] Encounter Details Date Type Department Care Team [...] EDT Office Visit [facility] [address] [facility] 150 [place] [address] Keith Iglesias DO 7[address] [facility] 150 [place] [address] documented as of this encounter Visit Diagnoses Not on filedocumented in this encounter Care Teams Wire Border Assembler Relationship Specialty Start Date End Date Dmitriy Presley MD [address] [place] [address] [place] [address] PCP - General Family Medicine 12/10/22 Maco Guillaume DO [address] [place] [address] Referring Physician Neurology 08/09/24 documented as of this encounter
--- OUTSIDE RECORDS SUMMARY | 2025-01-17 13:56 | XMS_ITS | Clinical Summary ---
Author Organization [facility] Address [address] [place] [address] Care Team Providers Care Mapping Supervisor Name Role Phone Dmitriy Presley DO Primary Care Provider [phone] Dmitriy Presley DO Unavailable [phone] Dmitriy Presley DO Unavailable [phone] Allergies Active Allergy Reactions Criticality Noted Date [...] 12/17/2024 10:20 AM EDT Office Visit Rheumatology [address] [place], [place] [address] Bertrand Morrow MD Fibromyalgia (Primary Dx); Primary osteoarthritis involving multiple joints; Type 2 diabetes mellitus without complication, with long-term current use of insulin (HCC); Long-term use of Plaquenil 11/17/2024 Telephone Cancer Appts [address] [facility] [address] Chad Freitas MD Records faxed 11/11/2024 Patient [facility] HB-[address] [place] [address] Leona Romero RPh At your next appointment, choose [facility]. from Last 3 Months Family [...] is lower risk 4 02/07/2023 Data from: https://www.neighborhoodatlas.medicine.[facility].edu/. Last address used for calculation [address] [...] 12/19/2025 11:00 AM EDT Office Visit Rheumatology [address] [place], [place] [address] [place] [address] [facility] [place], [place] [id number] Return in about 1 year (around 12/17/2025). [...] history exists RSV Vaccine Completed 06/23/2023 Insurance [facility] MEDICARE Care Teams Mapping Supervisor Relationship Specialty Start Date End Date Dmitriy Presely DO [address] [place] [address] PCP - General Family Medicine 08/01/11 Dmitriy Presley, [address] [place] [address] Referring Family Medicine 10/04/20 Dmitriy Presley, [address] [place] [address] Referring Family Medicine 01/09/21
--- OUTSIDE RECORDS SUMMARY | 2025-01-17 13:56 | XMS_ITS | Encounter Summary ---
Author Organization [facility] Address [facility] [place] [address] Care Team Providers Care Fender Repairer Name Role Phone Dmitriy Presley DO Primary Care Provider [phone] Dmitriy Presley DO Unavailable [phone] Dmitriy Presley DO Unavailable [phone] Source Comments In the event this information is protected by the Federal Confidentiality of Alcohol and Drug AbusePatient Records regulations: The Federal rules restrict any use of the information to criminally investigate or prosecute any alcohol or drug abuse patient.[facility] Encounter Details Date Type Department Care Team (Late st Contact Info) Description 05/10/2024 Patient [facility] -[address] [place] [address] Leona Romero RPh At your next appointment, choose [facility]. Social History Tobacco Use Types [...] is lower risk 4 02/07/2023 Data from: https://www.neighborhoodatlas.medicine.[facility].edu/. Last address used for calculation [address] [...] 12/19/2025 11:00 AM EDT Office Visit Rheumatology [address] [place] [address] [place] [address] [facility] [place] [address] Return in about 1 year (around 12/17/2025). documented as of this encounter Visit Diagnoses Not on filedocumented in this encounter Care Teams Fender Repairer Relationship Specialty Start Date End Date Dmitriy Presley DO [address] [place] [address] PCP - General Family Medicine 08/01/11 Dmitriy Presley DO [address] [place] [address] Referring Family Medicine 10/04/20 Dmitriy Presley DO [address] [place] [address] Referring Family Medicine 01/09/21 documented as of this encounter
--- OUTSIDE RECORDS SUMMARY | 2025-01-17 13:56 | XMS_ITS | Encounter Summary ---
Author Organization [facility] Address [address] [place] [address] Care Team Providers Care Potato Chip Sacking Machine Operator Name Role Phone Dmitriy Presley DO Primary Care Provider [phone] Dmitriy Presley DO Unavailable [phone] Dmitriy Presley DO Unavailable Source Comments In the event this information is protected by the Federal Confidentiality of Alcohol and Drug AbusePatient Records regulations: The Federal rules restrict any use of the information to criminally investigate or prosecute any alcohol or drug abuse patient.[facility] Encounter Details Date Type Department Care Team (Late st Contact Info) Description 04/03/2022 Abstract Hematology/Oncology [address] [place] [address] Santos Lares MD [address] [facility] [place] [address] Social History Tobacco Use Types [...] ot on file 03/12/2021 Data from: https://www.neighborhoodatlas.medicine.[facility].edu/. Last address used for calculation Not [...] 12/19/2025 11:00 AM EDT Office Visit Rheumatology [address] [place] [address] [place] [address] [facility] [place] [address] Return in about 1 year (around 12/17/2025). documented as of this encounter Visit Diagnoses Not on filedocumented in this encounter Care Teams Potato Chip Sacking Machine Operator Relationship Specialty Start Date End Date Dmitriy Presley DO [address] [place] [address] PCP - General Family Medicine 08/01/11 Dmitriy Presley DO [address] [place] [address] Referring Family Medicine 10/04/20 Dmitriy Presley DO [address] [place] [address] Referring Family Medicine 01/09/21 documented as of this encounter
--- OUTSIDE RECORDS SUMMARY | 2025-01-17 13:56 | XMS_ITS | Clinical Summary ---
Author Organization [facility] Address [address] [place] [address] Phone Care Team Providers Care Drill Sharpener Operator Name Role Phone Dmitriy Presley DO Primary Care Provider [phone] Social History Tobacco Use Types Packs/Day Years [...] age to complete this topic Care Teams Drill Sharpener Operator Relationship Specialty Start Date End Date Dmitriy Presley DO PCP - General 05/13/18
[2025-01-17 14:33] LABS: Glucose Urine UA NEGATIVE (NEGATIVE)
[2025-01-17 14:33] LABS: Hematocrit 39.4 % (36.0-48.0); Hemoglobin 12.7 g/dL (12.0-16.0); Mean Corpuscular HGB Conc 32.2 g/dL (29.9-35.2); Mean Corpuscular Hemoglobin 30.2 pg (26.7-34.0); Mean Corpuscular Volume 93.6 fL (81.0-99.0); Platelet Count 217 10^3/uL (150-450); Red Blood Count 4.21 10^6/uL (4.20-5.40); White Blood Count 18.8 10^3/uL (4.0-11.0)
[2025-01-17 14:44] LABS: Protein Creatinine Ratio Urine 0.35; Total Protein Urine Random 41.4 mg/dL (<=11.9)
[2025-01-17 14:47] LABS: Albumin Level 3.5 g/dL (3.4-5.0); Anion Gap 12.2; Blood Urea Nitrogen 35.0 mg/dL (7.0-18.0); Calcium 9.0 mg/dL (8.5-10.1); Carbon Dioxide 29.7 mmol/L (21.0-32.0); Chloride 109 mmol/L (98-107); Estimated GFR (African America 52 (>=60 mL/min/1.73m^2); Estimated GFR (Non-African Ame 43 (>=60 mL/min/1.73m^2); Glucose 99 mg/dL (74-106); Magnesium 1.5 mg/dL (1.8-2.4); Potassium 4.9 mmol/L (3.5-5.1); Sodium 146 mmol/L (136-145); Uric Acid 6.2 mg/dL (2.6-6.0)
[2025-01-17 15:19] LABS: Cast Seen? NONE SEEN #/LPF (NONE SEEN); Crystals Seen? None Seen #/HPF (None Seen)
== END 2025-01-17 13:52 | disposition home or self-care (01) ==
LOC: LAB 13:54
PROVIDERS: PCP Family Medicine; Visit Provider Internal Medicine
DX: I12.9 Hypertensive chronic 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 4 chronic kidney disease, or unspecified chronic kidney disease (principal); E11.22 Type 2 diabetes mellitus with diabetic chronic kidney disease; N18.32 Chronic kidney disease, stage 3b; E87.5 Hyperkalemia; E55.9 Vitamin D deficiency, unspecified
CPT/HCPCS: 36415; 80069; 81001; 82306; 82570; 83735; 83970; 84156; 84550; 85027

== ENCOUNTER 2025-02-09 12:34 | Outpatient (OUT) | payer MEDICARE, SELFPAY ==
--- NOTE | 2025-02-09 12:46 | ECG_ITS ---
[facility] Test Date: 2025-02-09 Pat Name: MIGUEL A APARICIO Department: Room: - Gender: Female Tile Inspector: : 1940 Requested By: [id number] Order Number: [id number] Reading MD: ALYSIA DALAL M.D. Measurements Intervals [place] Rate: 65 P: 72 KS: 225 QRS: -7 QRSD: 108 T: 69 QT: 400 QTc: 417 Interpretive Statements SINUS RHYTHM WITH FIRST DEGREE AV BLOCK Abnormal ECG No previous ECG available for comparison Electronically Signed On 02-09-2025 19:49:32 EDT by ALYSIA DALAL M.D.
--- NOTE | 2025-02-09 13:44 | PM.PRESUREVA ---
History of Present Illness History of Present Illness Chief complaint: FAILED BACK SYNDROME Narrative: Patient presents for presurgical testing accompanied by her friend. The patient has a history of chronic low back pain with prior lumbar fusion. She continues to have daily pain and has completed physical therapy, chiropractic treatments, injections, and medications without substantial relief of her symptoms. While she does not have any dyspnea on exertion, she reports that she struggles to do the activities that she wants because she cannot tolerate standing for long periods of time. The patient states her pain does radiate to her right leg. She denies trauma, injury, numbness, tingling, weakness, or loss of bowel or bladder control, or any other complaints. Review of Systems ROS Narrative REVIEW OF SYSTEMS: Negative except as stated in HPI, ten or more systems reviewed. Constitutional: No fever, chills, weakness ENT: No sore throat or epistaxis Cardiovascular: No chest pain or palpitations Respiratory: No shortness of breath, cough, or wheezing Gastrointestinal: No abdominal pain, constipation, or vomiting Genitourinary: No dysuria or hematuria Neurological: No numbness, tingling, weakness, or headache Psychiatric: No mood changes [facility] Medical History (Updated 02/09/25 @ 13:43 by Zoila Valladares NP) Failed back syndrome ?M96.1 - Postlaminectomy syndrome, not elsewhere classified (ICD-10) History of blood transfusion ?Z92.89 - Personal history of other medical treatment (ICD-10) Chronic kidney disease ?N18.9 - Chronic kidney disease, unspecified (ICD-10) Extremity edema ?R60.0 - Localized edema (ICD-10) Activity intolerance ?R68.89 - Other general symptoms and signs (ICD-10) Fibromyalgia ?M79.7 - Fibromyalgia (ICD-10) Irritable bowel syndrome with diarrhea ?K58.0 - Irritable bowel syndrome with diarrhea (ICD-10) Leukocytosis ?D72.829 - Elevated white blood cell count, unspecified (ICD-10) Leukemia ?C95.90 - Leukemia, unspecified not having achieved remission (ICD-10) Lung nodule ?R91.1 - Solitary pulmonary nodule (ICD-10) Migraine ?G43.909 - Migraine, unspecified, not intractable, without status migrainosus (ICD-10) Insomnia ?G47.00 - Insomnia, unspecified (ICD-10) Depression ?F32.A - Depression, unspecified (ICD-10) Hypothyroidism (acquired) ?E03.9 - Hypothyroidism, unspecified (ICD-10) Chronic back pain ?M54.9 - Dorsalgia, unspecified (ICD-10) ?G89.29 - Other chronic pain (ICD-10) Hyperlipidemia ?E78.5 - Hyperlipidemia, unspecified (ICD-10) Anemia ?D64.9 - Anemia, unspecified (ICD-10) Osteoarthritis ?M19.90 - Unspecified osteoarthritis, unspecified site (ICD-10) Chronic lymphocytic leukemia ?C91.10 - Chronic lymphocytic leukemia of B-cell type not having achieved remission (ICD-10) Diabetes ?E11.9 - Type 2 diabetes mellitus without complications (ICD-10) Former smoker ?Z87.891 - Personal history of nicotine dependence (ICD-10) High cholesterol ?E78.00 - Pure hypercholesterolemia, unspecified (ICD-10) Hypertension ?I10 - Essential (primary) hypertension (ICD-10) Surgical History (Updated 02/09/25 @ 13:20 by Zoila Valladares NP) History of radiofrequency ablation (RFA) of nerve of lumbar spine ?Z98.890 - Other specified postprocedural states (ICD-10) S/P epidural steroid injection ?Z92.241 - Personal history of systemic steroid therapy (ICD-10) History of cataract extraction with lens replacement History of appendectomy ?Z90.49 - Acquired absence of other specified parts of digestive tract (ICD-10) H/O colonoscopy ?Z98.890 - Other specified postprocedural states (ICD-10) History of total knee arthroplasty ?Z96.659 - Presence of unspecified artificial knee joint (ICD-10) History of hernia repair ?Z98.890 - Other specified postprocedural states (ICD-10) ?Z87.19 - Personal history of other diseases of the digestive system (ICD-10) S/P lumbar fusion ?Z98.1 - Arthrodesis status (ICD-10) S/P hernia surgery ?Z98.890 - Other specified postprocedural states (ICD-10) ?Z87.19 - Personal history of other diseases of the digestive system (ICD-10) H/O: hysterectomy ?Z90.710 - Acquired absence of both cervix and uterus (ICD-10) Family History (Updated 02/09/25 @ 13:15 by Zoila Valladares NP) Other Family history of Parkinson disease Family history of cancer Family history of hypertension Family history of myocardial infarction Family history of stroke Heart disease Social History (Updated 02/09/25 @ 13:08 by Zoila Valladares NP) Within the past year, how often did you have a drink containing alcohol: monthly or less Smoking status: Never smoker Non-prescribed substance use: denies use Highest level of school completed/degree received: high school graduate Little interest or pleasure in doing things: not at all Feeling down, depressed, or hopeless: not at all Meds Home Medications and Allergies Home Medications ?Medication ?Instructions ?Recorded ?Confirmed ?Type B-complex with vitamin C 1 tab PO DAILY 08/25/23 02/09/25 History aspirin 81 mg tablet,delayed 81 mg PO DAILY 08/25/23 02/09/25 History release atorvastatin 20 mg tablet (Lipitor) 20 mg PO DAILY 08/25/23 02/09/25 History cholecalciferol (vitamin D3) 125 125 mcg PO DAILY 08/25/23 02/09/25 History mcg (5,000 unit) capsule ezetimibe 10 mg tablet (Zetia) 10 mg PO DAILY 08/25/23 02/09/25 History levothyroxine 100 mcg tablet 100 mcg PO DAILY 08/25/23 02/09/25 History (Synthroid) lisinopril 10 mg tablet 10 mg PO DAILY 08/25/23 02/09/25 History multivitamin 1 tab PO DAILY 08/25/23 02/09/25 History oxycodone-acetaminophen 5 mg-325 1 tab PO BID PRN pain 08/25/23 02/09/25 History mg tablet pregabalin 225 mg capsule (Lyrica) 225 mg PO BID 08/25/23 02/09/25 History propranolol 60 mg tablet 60 mg PO DAILY 08/25/23 02/09/25 History triamterene 37.5 1 tab PO DAILY 08/25/23 02/09/25 History mg-hydrochlorothiazide 25 mg tablet (Maxzide-25mg) venlafaxine 75 mg capsule,extended 75 mg PO DAILY 08/25/23 02/09/25 History release 24 hr (Effexor XR) zolpidem 5 mg tablet 5 mg PO DAILY 08/25/23 02/09/25 History insulin glargine 100 unit/mL (3 36 unit subcut QPM 02/09/25 02/09/25 History mL) subcutaneous pen (Lantus Solostar U-100 Insulin) magnesium oxide 400 mg (241.3 mg 400 mg PO DAILY 02/09/25 02/09/25 History magnesium) tablet metformin 500 mg tablet 500 mg PO BID 02/09/25 02/09/25 History Allergies Allergy/AdvReac Type Severity Reaction Status Date / Time cefpodoxime (From Vantin) Allergy Unknown Unknown Verified 02/09/25 13:02 Exam Narrative Exam Narrative: Constitutional: Awake, alert, very pleasant, comfortable, well-appearing, nontoxic, interactive, vital signs as charted Head: Normocephalic, atraumatic Neck: Supple, normal appearance, normal range of motion, no meningeal signs, no lymphadenopathy Respiratory: No respiratory distress, breath sounds clear Cardiovascular: Regular rate and rhythm, strong and regular heart tones Abdomen: Nontender, normal bowel sounds, soft Musculoskeletal: 2+ pedal edema bilaterally, lumbar range of motion limited due to pain, bilateral lower lumbar paraspinal muscle tenderness, no midline tenderness Skin: No rashes or induration, no lesions, only visible skin inspected Neuro: No neurological deficits, normal sensation Psychiatric: Oriented ?3, normal affect Assessment and Plan Assessment and Plan (1) Failed back syndrome: (2) Chronic back pain: Plan Spinal cord stimulator trial scheduled with Dr. Sepulveda February 21, 2025.
[2025-02-09 14:19] LABS: Anion Gap 10.2; Blood Urea Nitrogen 36.0 mg/dL (7.0-18.0); Calcium 9.0 mg/dL (8.5-10.1); Carbon Dioxide 30.8 mmol/L (21.0-32.0); Chloride 107 mmol/L (98-107); Estimated GFR (African America 43 (>=60 mL/min/1.73m^2); Estimated GFR (Non-African Ame 35 (>=60 mL/min/1.73m^2); Glucose 120 mg/dL (74-106); Potassium 5.0 mmol/L (3.5-5.1); Sodium 143 mmol/L (136-145)
[2025-02-09 14:34] LABS: Hematocrit 36.4 % (36.0-48.0); Hemoglobin 11.6 g/dL (12.0-16.0); Mean Corpuscular HGB Conc 31.9 g/dL (29.9-35.2); Mean Corpuscular Hemoglobin 30.2 pg (26.7-34.0); Mean Corpuscular Volume 94.8 fL (81.0-99.0); Platelet Count 213 10^3/uL (150-450); Red Blood Count 3.84 10^6/uL (4.20-5.40); White Blood Count 19.3 10^3/uL (4.0-11.0)
[2025-02-09 15:29] LABS: Basophils Abs Manual 0.00 10^3/uL (0.00-0.10); Basophils Percent Manual 0.0 % (0.2-2.0); Eosinophils Absolute Manual 0.00 10^3/uL (0.00-0.70); Eosinophils Percent Manual 0.0 % (0.9-7.0); Lymphocytes Absolute Manual 9.84 10^3/uL (1.20-3.80); Lymphocytes Percent Manual 51.0 % (20.5-60.0); Monocytes Absolute Manual 0.96 10^3/uL (0.30-0.80); Monocytes Percent Manual 5.0 % (1.7-12.0); Segmented Neut Absolute Manual 8.49 10^3/uL (1.4-6.5); Segmented Neutrophils % Manual 44.0 (43.0-75.0)
[2025-02-09 15:31] LABS: Smudge Cells SEEN
== END 2025-02-09 12:35 | disposition home or self-care (01) ==
PROVIDERS: PCP Family Medicine; Visit Provider Anesthesiology
DX: Z01.810 Encounter for preprocedural cardiovascular examination (principal); Z01.812 Encounter for preprocedural laboratory examination; Z01.818 Encounter for other preprocedural examination; M96.1 Postlaminectomy syndrome, not elsewhere classified
CPT/HCPCS: 36415; 80048; 85007; 85027; 93005; G0463

== ENCOUNTER 2025-02-21 06:47 | Day surgery (SDC) | payer MEDICARE, SELFPAY ==
--- OUTSIDE RECORDS SUMMARY | 2024-11-30 04:45 | XMS_ITS ---
Author Organization [facility] in [place] Address [address] [place] [address] Care Team Providers Care Metallic Yarn Slitting Machine Operator Name Role Phone Dmitriy Presley DO Primary Care Provider Unavailab Carolin Mc Unavailable [phone] REASON FOR VISIT New PT Onc Encounters Encounter Location Date Provider Diagnosis [facility] [address] [place] [address] 11/30/2024 Carolin Silva Plan Of Treatment Next Appt Details Provider Name:Carolin Silva , 03/01/2025 11:45:00 AM, [address] [place], [address], Progress Notes * Viki WASHBURNOB: 2 (84 yo F)Acc No.[id number]:11/30/2024 UNLOCKED PROGRESS NOTE Progress Notes Patient: Kathy GUILLEN Provider: Rolo Silva M.D. :1940 A ge:84 Y S ex:Female Date:11/30/2024 Address:[address] [place], [place] [address], [id number] Pcp:Dmitriy Presley DO Subjective: * Chief Complaints: * 1 . New PT Onc. * Medical History: Objective: * Vitals: Assessment: Plan: * Treatment: * * Electronic signature of Reina Silva MD, [id number] on 02/21/2025 at 06:49 AM EDT Sign off status: Pending Visit Status: P EN (Pending) * Provider: Rolo Silva M.D. Date: 0 11/30/2024 Generated for Birgit sultana/Zena/Isha on: 0 02/21/2025 06:49 AM EDT
--- OUTSIDE RECORDS SUMMARY | 2025-02-08 11:15 | XMS_ITS ---
Author Organization [facility] Address [facility] [place] [address] Care Team Providers Care Director Of Collections And Archives Name Role Phone Dmitriy Presley DO Primary Care Provider Unavailab Willy Davis Unavailable [phone] Allergies Allergen (clinical drug ingredient) Drug/Non Drug Allergy documented on EMR Reaction Allergy Type Onset Date Status Medicinal cephalosporin and acting as antibacterial agent (FN) Cephalosporins Unknown Drug Allergy Active REASON FOR VISIT c Medications Medication SIG (Take, Route, Frequency, Duration) Notes Start Date End Date Status Lipitor 20 MG 1 tablet Orally Once [...] before bedtime Orally twice a day Active Lisinopril 10 MG 1 tablet Orally Once a day Active Levothyroxine Sodium 100 MCG 1 tablet in the morning on an empty stomach Orally Once a day Active Propranolol HCl ER 60 MG 1 capsule Orall y Once a day Active Triamterene-HCTZ 37.5-25 MG 1 tablet in the morning Orally Once a day Active Ezetimibe 10 MG 1 tablet Orally Once a day Active metFORMIN HCl 1000 MG 1 tablet with a me al Orally twice a day Active Social History Tobacco Use: Social History Observation Description Date Details (start date - stop date) Former Smoker NA - NA tobacco use Question Answer Notes Patient is a: former smoker quit 1998 Problems Problem Type SNOMED Code ICD Code Onset Dates Problem Status W/U Status Risk Notes Problem Chronic kidney disease stage 3B (disorder) (583365798) Chronic kidney disease, stage 3b (N18.32) Active confirmed Problem Dilatation of aorta (38638489) Thoracic aortic ectasia (I77.810) Active confirmed Vital Signs Blood pressure systolic 86 mm Hg 02/09/20 25 Blood pressure diastolic 60 mm Hg 025 Height 69 in 02/08/2025 Weight 232 lbs 02/08/2025 BMI 34.26 02/08/2025 Encounters Encounter Location Date Provider Diagnosis [facility] [address] [place] [address] 02/08/2025 Willy Schwarz Tinea unguium B35.1 ; Type 2 diabetes mellitus with diabetic peripheral angiopathy without gangrene E11.51 ; Type 2 diabetes mellitus with diabetic polyneuropathy E11.42 ; intermediate (current) use of oral hypoglycemic drugs Z79.84 ; Chronic kidney disease, stage 3b N18.32 and Thoracic aortic ectasia I77.810 Assessments Encounter Date Diagnosis (ICD Code) Assessment Notes Treatment Notes Treatment Clinical Notes Section Notes 02/08/2025 Tinea unguium (ICD-10 - B35.1) I am [...] therapy. Pt. agreed to periodic debridement today. 02/08/2025 Type 2 diabetes mellitus with diabetic peripheral angiopathy without gangrene (ICD-10 - E11.51) 02/08/2025 Type 2 diabetes mellitus with diabetic polyneuropathy (ICD-10 - E11.42) 02/08/2025 rodent exterminator (current) use of oral hypoglycemic drugs (ICD-10 - Z79.84) 02/08/2025 Chronic kidney disease, stage 3b (ICD-10 - N18.32) Stable from a podiatric perspective, stated to continue to follow up with the treating provider. If any acute issues arise patient advised to immediately call treating provider and patient confirms understanding of such. 02/08/2025 Thoracic aortic ectasia (ICD-10 - I77.810) Stable from a podiatric perspective, stated to continue to follow up with the treating provider. If any acute issues arise patient advised to immediately call treating provider and patient confirms understanding of such. Plan Of Treatment Treatment Notes Assessment Notes Tinea unguium I am treating this p atient with a minmal risk of morbidity for nail fungus. I discussed with the patient the etiology and treatment for onychomycosis including but not limited to periodic debridement, oral therapy with Lamisil or Sporanox, topical therapy such as Penlac or Formula 3, removal of the nail, and laser therapy. Pt. agreed to periodic debridement today. Chronic kidney disease, stage 3b Stable from a podiatric perspective, stated to continue to follow up with the treating provider. If any acute issues arise patient advised to immediately call treating provider and patient confirms understanding of such. Thoracic aortic ectasia Stable from a po diatric perspective, stated to continue to follow up with the treating provider. If any acute issues arise patient advised to immediately call treating provider and patient confirms understanding of such. Next Appt Details Follow Up: 3 Months, Reason: rfc Provider Name:Willy muir, 05/10/2025 03:15:00 PM, [address], [address], [place], [address], Procedure Notes * Category Sub-Category Detail Notes Debridement of Toenails Manually debrided nails 1,2,3,4 and 5 in thickness and in length, bilateral Mechanically debrided nails 1,2,3 ,4, and 5 in thickness and in length with a dremel Progress Notes * Mary Carmen WASHBURNRoselineOB: 2 (84 yo F)Acc No.[id number]:02/08/2025 Patient: Kathy GUILLEN Provider: Wilfredo Schwarz DPM :1940 A ge:84 Y S ex:Female Date:02/08/2025 Phone: Address:[address] [place], [place] [id number] Pcp:Dmitriy Presley DO Subjective: * Chief Complaints: * R fc * HPI: B ilateral Feet: This is a 84 y/o female who presents for diabetic foot care. She last saw her PCP, Dr. Presley who is treating her diabetes on 08/12/2024. She does experienced numbness and tingling in her feet. * Medical History: * Surgical History: h ernia repair hysterectomy knee replacement x2 back surgery * Family History: father- heart disease, alzheimer's mother- vascular dementia, cancer. * Social History: T obacco use P atient is a: f ormer smoker quit 1998. A lcohol D o you use alcohol? D rinks alcohol socially. M arital status m arital status w idowed. R ecreational drug use: no. * Medications: T akingmetFORMIN HCl 1000 MG Tablet 1 tablet with a meal Orally twice a day Triamterene-HCTZ 37.5-25 MG Tablet 1 tablet in the morning Orally Once a day Ezetimibe 10 MG Tablet 1 tablet Orally Once a day Levothyroxine Sodium 100 MCG Tablet 1 tablet in the morning on an empty stomach Orally Once a day Propranolol HCl ER 60 MG Capsule Extended Release 24 Hour 1 capsule Orally Once a day Lisinopril 10 MG Tablet 1 tablet Orally Once a day Lyrica 225 MG Capsule 1 capsule in the evening 1 to 3 hours before bedtime Orally twice a day Venlafaxine HCl 75 MG Tablet 1 tablet with food Orally Once a day Aspirin 81 MG Tablet Delayed Release 1 tablet Orally Once a day Lipitor 20 MG Tablet 1 tablet Orally Once a day Ambien 5 MG Tablet 1 tablet at bedtime as needed Orally Once a day Medication List reviewed and reconciled with the patientTaking metFORMIN HCl 1000 MG Tablet 1 tablet with a meal Orally twice a day Taking Triamterene-HCTZ 37.5-25 MG Tablet 1 tablet in the morning Orally Once a day Taking Ezetimibe 10 MG Tablet 1 tablet Orally Once a day Taking Levothyroxine Sodium 100 MCG Tablet 1 tablet in the morning on an empty stomach Orally Once a day Taking Propranolol HCl ER 60 MG Capsule Extended Release 24 Hour 1 capsule Orally Once a day Taking Lisinopril 10 MG Tablet 1 tablet Orally Once a day Taking Lyrica 225 MG Capsule 1 capsule in the evening 1 to 3 hours before bedtime Orally twice a day Taking Venlafaxine HCl 75 MG Tablet 1 tablet with food Orally Once a day Taking Aspirin 81 MG Tablet Delayed Release 1 tablet Orally Once a day Taking Lipitor 20 MG Tablet 1 tablet Orally Once a day Taking Ambien 5 MG Tablet 1 tablet at bedtime as needed Orally Once a day Medication List reviewed and reconciled with the patient * Allergies: C sonali[Allergies Verified] Objective: * Vitals: H t: 69 in, Wt: 232 lbs, BMI: 34.26, Blood pressure (BP): 86/60 mm Hg. * Examination: V ascular: Dorsalis Pedis Pulse 2 /4, palpable, bilateral. P osterior Tibial Pulse 0 /4, palpable, bilateral. C apillary Refill < 3 seconds, digits 1-5 bilateral. T emperature Gradient w arm to cool from tibial tuberosity to dorsum of foot, bilateral feet. E oswald p itting, (+)1. H air growth n one observed, bilateral feet.?Q findings Q 8. D ermatologic: Skin t hin, shiny , and atrophic, bilateral. N ail Pathology d igital nails 1-5, subungual debris, painful upon palpation, yellow, crumbly, thickened, elongated. N eurologic: Muscle Power 5 /5, bilateral, dorsiflexors, plantarflexors, everters, inverters. S emmes-Violette 5.07 Monofilament u nable to feel plantar heels, sub metatarsal 1,3,5, plantar hallux, plantar 5th digit, dorsum of foot, bilateral. ? O rthopedic: Ankle Joint ROM n ormal with no decrease in range of motion or crepitus noted, bilateral. S TJ ROM n o evidence of pain to ROM or crepitus noted, bilateral. L isfrancs Joint ROM n ormal, bilateral. F irst MPJ ROM n ormal ROM with no pain or crepitus noted, bilateral. Assessment: * Assessment: 1. T inea unguium - B35.1 (Primary) 2 . T ype 2 diabetes mellitus with diabetic peripheral angiopathy without gangrene - E11.51 3 . T ype 2 diabetes mellitus with diabetic polyneuropathy - E11.42 4 . L breanna term (current) use of oral hypoglycemic drugs - Z79.84 5 . C hronic kidney disease, stage 3b - N18.32 ? 6 . T horacic aortic ectasia - I77.810 Plan: * Treatment: 2. C hronic kidney disease, stage 3b Notes: Stable from a podiatric perspective, stated to continue to follow up with the treating provider. If any acute issues arise patient advised to immediately call treating provider and patient confirms understanding of such. 3. T horacic aortic ectasia Notes: Stable from a podiatric perspective, stated to continue to follow up with the treating provider. If any acute issues arise patient advised to immediately call treating provider and patient confirms understanding of such. * Procedures: D ebridement of Toenails: Manually d ebrided nails 1,2,3,4 and 5 in thickness and in length, bilateral. M echanically d ebrided nails 1,2,3,4, and 5 in thickness and in length with a torres. * Procedure Codes: 1 1721 DEBRIDE NAIL, 6 OR MORE, Modifiers: Q8 * Follow Up: 3 Months (Reason: rfc) * Images: * Sign off status: Completed true * Provider: Wilfredo Schwarz DPM Date: 02/08/2025 Generated for Birgit sultana/Zena/Isha on: 0 02/21/2025 06:49 AM EDT History and Physical Notes * HPI (History of Present Illness) Category Sub-Category Detail Notes Category Not es Bilateral Feet This is a 84 y/o female who presents for diabetic foot care. She last saw her PCP, Dr. Presley who is treating her diabetes on 08/12/2024. She does experienced numbness and tingling in her feet. Examination Category Sub-Category Detail Notes Category Not es Vascular Dorsalis Pedis Pulse 2/4, palpable, bilat eral Posterior Tibial Pulse 0/4, palpable, bi lateral Capillary Refill < 3 seconds, digits 1-5 bilateral Temperature Gradient warm to cool from t ibial tuberosity to dorsum of foot, bilateral feet Edema pitting, (+)1 Hair growth none observed, bilat eral feet Q findings Q8 Neurologic Muscle Power 5/5, bilateral, dorsiflexors, plantarflexors, everters, inverters [place]-Violette 5.07 Monofilament unabl e to feel plantar heels, sub metatarsal 1,3,5, plantar hallux, plantar 5th digit, dorsum of foot, bilateral Dermatologic Skin thin, shiny , and atrophic, bilateral Nail Pathology digital nails 1-5, s ubungual debris, painful upon palpation, yellow, crumbly, thickened, elongated Orthopedic Ankle Joint ROM normal with no d ecrease in range of motion or crepitus noted, bilateral STJ ROM no evidence of pain to ROM or crepitus noted, bilateral Lisfrancs Joint ROM normal, bilateral First MPJ ROM normal ROM with no p ain or crepitus noted, bilateral
--- OUTSIDE RECORDS SUMMARY | 2025-02-08 23:59 | XMS_ITS | Continuity of Care Document ---
Author Organization [facility] Address [address] [place] [address] [place] [address] Care Team Providers Care Strategic Marketing Specialist Name Role Phone Dmitriy Presley Primary Care Physician Encounter FT_JODRAN [id number] Date(s): 02/08/25 - 02/08/25 [facility] [address] [place], [place] [address] Encounter Diagnosis Recurrent UTI(Discharge Diagnosis) - 02/08/25 Urgency incontinence(Discharge Diagnosis) - 02/08/25 Discharge Disposition: Home (Routine DC) Attending Physician: MARYAM CAMARA PA-C Encounter Type: Clinic Allergies, Adverse Reactions, Alerts Substance Criticality Severity Reaction Reaction Severity Status cephalosporins Swelling Eye swelling Active Vantin Eye swelling Active Assessment and Plan Future Appointments Appointment Date:10/27/2025 10:20:00 AM Scheduled Provider:JOSE Stewart APRN, [place] [facility] Location:[facility] Appointment Type:URO Office Visit Immunizations Given and Recorded Vaccine Date Status Refusal Reason influenza virus vaccine, inactivated 03/19/24 Pelon rded influenza virus vaccine, inactivated 04/15/23 Pelon rded influenza virus vaccine, inactivated 04/25/21 Pelon rded influenza virus vaccine, inactivated 04/04/21 Pelon rded influenza virus vaccine, inactivated 03/2020 Pelon rded influenza virus vaccine, inactivated 04/03/19 Pelon rded influenza virus vaccine, inactivated 05/25/18 Pelon rded zoster vaccine, inactivated 06/23/23 Recorded pneumococcal 20-valent conjugate vaccine 06/23/23 Recorded pneumococcal 23-valent vaccine 04/22/22 Recorded pneumococcal 23-valent vaccine 04/03/19 Recorded SARS-CoV-2 (COVID-19) [id number] 04/18/22 Recorded diphtheria/pertussis, acel/tetanus adult 01/13/22 Recorded SARS-CoV-2 (COVID-19) mRNA BNT-162b2 vax 06/01/21 Recorded SARS-CoV-2 (COVID-19) mRNA-1273 vaccine 09/01/20 R ecorded SARS-CoV-2 (COVID-19) mRNA-1273 vaccine 08/11/20 R ecorded pneumococcal 13-valent vaccine 07/14/19 Recorded Medications acetaminophen-oxycodone 325 mg-5 mg oral tablet tab(s), Oral, q6hr, Refill(s) 0 Start Date: 10/26/20 Status: Ordered Repeat number: 1 Ambien 10 mg Tab 10 mg = 1 tab(s), Oral, Once a day (at bedtime), PRN for sleep, Refills(s) 0 Start Date: 10/26/20 Status: Ordered Repeat number: 1 aspirin 81 mg Oral EC Tab mg tab(s), Oral, Daily, Refills(s) 0 Start Date: 10/26/20 Status: Ordered Repeat number: 1 CeleXA 40 mg Tab 40 mg = 1 tab(s), Oral, Daily, Refills(s) 0 Start Date: 10/26/20 Status: Ordered Repeat number: 1 Cipro 500 mg Tab 500 mg = 1 tab(s), Oral, q12hr, X 7 day(s), # 14 tab(s), Refills(s) 0, Pharmacy: [facility], 178, cm, 02/08/25 9:03:00 EDT, Height/Length Dosing, 105.1, kg, 02/08/25 9:03:00 EDT, Weight Dosing Start Date: 02/08/25 Stop Date: 02/15/25 Status: Ordered Quantity: 14.0 Unit: tab(s) Repeat number: 1 Estrace 0.1 mg/g Cream See Instructions, 42.5 gm, Refill(s) 6, apply a pea-sized amount vaginally and around the urethra 3x per week for UTI prevention, [facility], 178, cm, 02/08/25 9:03:00 EDT, Height/Length Dosing, 105.1, kg, 02/08/25 9:03:00 EDT, Weight Dosing Start Date: 02/08/25 Status: Ordered Quantity: 42.5 Unit: g Repeat number: 7 Inderal LA 60 mg Cap-ER 60 mg = 1 cap(s), Oral, Daily, Refills(s) 0 Start Date: 10/26/20 Status: Ordered Repeat number: 1 Lantus Solostar Pen 100 units/mL subcutaneous solution SubCutaneous, Daily, Refills(s) 0 Start Date: 10/26/20 Status: Ordered Repeat number: 1 Lasix 20 mg Tab 20 mg = 1 tab(s), Oral, Daily, Refills(s) 0 Start Date: 10/26/20 Status: Ordered Repeat number: 1 Lipitor 20 mg Tab 20 mg = 1 tab(s), Oral, Daily, Refills(s) 0 Start Date: 10/26/20 Status: Ordered Repeat number: 1 Lyrica 225 mg oral capsule 225 mg = 1 cap(s), Oral, BID, Refills(s) 0 Start Date: 10/26/20 Status: Ordered Repeat number: 1 Maxzide-25 oral tablet 0.5 tab(s), Oral, Daily, Refill(s) 0 Start Date: 10/26/20 Status: Ordered Repeat number: 1 metformin 1000 mg oral tablet, extended release 1,000 mg = 1 tab(s), Oral, BID, # 60 tab(s), Refills(s) 0 Start Date: 12/19/20 Status: Ordered Quantity: 60.0 Unit: tab(s) Repeat number: 1 Multivitamins and Minerals Refill(s) 0 Start Date: 10/26/20 Status: Ordered Repeat number: 1 Synthroid 100 mcg Tab 100 mcg = 1 tab(s), Oral, Daily, Refills(s) 0 Start Date: 10/26/20 Status: Ordered Repeat number: 1 trospium 20 mg oral tablet 20 mg = 1 tab(s), Oral, BID, X 30 day(s), # 60 tab(s), Refills(s) 11, Pharmacy: [facility] #[facility], 178, cm, 02/24/24 10:27:00 EDT, Height/Length Dosing, 106, kg, 08/13/24 10:27:00 EDT, Weight Dosing Start Date: 02/24/24 Stop Date: 02/18/25 Status: Ordered Quantity: 60.0 Unit: tab(s) Repeat number: 12 Vitamin B Complex oral capsule Oral, Daily, Refill(s) 0 Start Date: 10/26/20 Status: Ordered Repeat number: 1 Zestril 10 mg Tab 10 mg = 1 tab(s), Oral, Daily, Refills(s) 0 Start Date: 10/26/20 Status: Ordered Repeat number: 1 Zetia 10 mg Tab 10 mg = 1 tab(s), Oral, Daily, Refills(s) 0 Start Date: 10/26/20 Status: Ordered Repeat number: 1 Problem List Condition Confirmation Course Effective Dates Status H ealth Status Informant Arthritis Confirmed Active Depression Confirmed Active Fibromyalgia Confirmed Active Stress incontinence Confirmed Active Headache Confirmed Active Hyperlipidemia Confirmed Active Hypertension Confirmed Active Hypothyroidism Confirmed Active Insomnia Confirmed Active Lumbar pain Confirmed Active Neuropathy Confirmed Active Lung nodule Confirmed Active Overactive bladder Confirmed Active Peripheral edema Confirmed Active Recurrent UTI Confirmed Active Rheumatism Confirmed Active Sacroiliac dysfunction Confirmed Active Type 2 diabetes mellitus Confirmed Active Urgency incontinence Confirmed Active Procedures Procedure Date Related Diagnosis Body Site Status Cysto Botox 100 units 08/30/21 Com pleted Cystoscopy UD 01/01/21 Completed History of lumbar spine surgery 2016 Completed Arthroplasty of the knee right 2009 Completed Arthroplasty of knee left 1999 Completed History of hernia repair 1997 Completed Appendectomy 1995 Completed History of hernia repair 1991 Completed History of hysterectomy.. 1984 Completed Bilateral inguinal hernia repair Completed Cataract extraction Compl eted Colonoscopy Completed History of hernia repair Completed History of hernia repair Completed Social History Social History Type Response Smoking Status Former smoker, quit more than 30 days ago;Never; Type: Cigarettes 1 entered on: 02/08/25 Sex Female Sex Representation Female (finding) 1quit smoking in 1984 Hospital Discharge Instructions Patient Education 02/08/2025 09:23:28 Overactive Bladder, Adult Overactive Bladder, Adult Overactive [...] be caused by other factors, such as: ??? Medical conditions: ??? Urinary tract infection. ??? Infection of nearby tissues. ??? Prostate enlargement. ??? Bladder stones, inflammation, or tumors. ??? Diabetes. ??? Muscle or nerve weakness, especially from these conditions: ??? A spinal cord injury. ??? Stroke. ??? Multiple sclerosis. ??? Parkinson's disease. ??? Other causes: ??? Surgery on the uterus or urethra. ??? Drinking too much caffeine or alcohol. ??? Certain medicines, especially those that eliminate extra fluid in the body (diuretics). ??? Constipation. What increases the risk? You may be at greater risk for overactive bladder if you: ??? Are an older adult. ??? Smoke. ??? Are going through menopause. ??? Have prostate problems. ??? Have a neurological disease, such as stroke, dementia, Parkinson's disease, or multiple sclerosis (MS). ??? Eat or drink alcohol, spicy food, caffeine, and other things that irritate the bladder. ??? Are overweight or obese. What are the signs or symptoms? Symptoms of this condition include a sudden, strong urge to urinate. Other symptoms include: ??? Leaking urine. ??? Urinating 8 or more times a day. ??? Waking up to urinate 2 or more times overnight. How is this diagnosed? This condition may be diagnosed based on: ??? Your symptoms and medical history. ??? A physical exam. ??? Blood or urine tests to check for possible causes, such as infection. You may also need to see a health care provider who specializes in urinary tract problems. This is called a urologist. How is this treated? Treatment for overactive bladder depends on the cause of your condition and whether it is mild or severe. Treatment may include: ??? Bladder training, such as: ??? Learning to control the urge to urinate by following a schedule to urinate at regular intervals. ??? Doing Kegel exercises to strengthen the pelvic floor muscles that support your bladder. ??? Special devices, such as: ??? Biofeedback. This uses sensors to help you become aware of your body's signals. ??? Electrical stimulation. This uses electrodes placed inside the body (implanted) or outside the body. These electrodes send gentle pulses of electricity to strengthen the nerves or muscles that control the bladder. ??? Women may use a plastic device, called a pessary, that fits into the vagina and supports the bladder. ??? Medicines, such as: ??? Antibiotics to treat bladder infection. ??? Antispasmodics to stop the bladder from releasing urine at the wrong time. ??? Tricyclic antidepressants to relax bladder muscles. ??? Injections of botulinum toxin type A directly into the bladder tissue to relax bladder muscles. ??? Surgery, such as: ??? A device may be implanted to help manage the nerve signals that control urination. ??? An electrode may be implanted to stimulate electrical signals in the bladder. ??? A procedure may be done to change the shape of the bladder. This is done only in very severe cases. Follow these instructions at home: Eating and drinking ??? Make diet or lifestyle changes recommended by your health care provider. These may include: ??? Drinking fluids throughout the day and not only with meals. ??? Cutting down on caffeine or alcohol. ??? Eating a healthy and balanced diet to prevent constipation. This may include: ??? Choosing foods that are high in fiber, such as beans, whole grains, and fresh fruits and vegetables. ??? Limiting foods that are high in fat and processed sugars, such as fried and sweet foods. Lifestyle ??? Lose weight if needed. ??? Do not use any products that contain nicotine or tobacco. These include cigarettes, chewing tobacco, and vaping devices, such as e-cigarettes. If you need help quitting, ask your health care provider. General instructions ??? Take cqyn-cvw-ayqyhsb and prescription medicines only as told by your health care provider. ??? If you were prescribed an antibiotic medicine, take it as told by your health care provider. Donot stop taking the antibiotic even if you start to feel better. ??? Use any implants or pessary as told by your health care provider. ??? If needed, wear pads to absorb urine leakage. ??? Keep a log to track how much and when you drink, and when you need to urinate. This will help your health care provider monitor your condition. ??? Keep all follow-up visits. This is important. Contact a health care provider if: ??? You have a fever or chills. ??? Your symptoms do not get better with treatment. ??? Your pain and discomfort get worse. ??? You have more frequent urges to urinate. Get help right away if: ??? You are not able to control your bladder. Summary ??? Overactive bladder refers to a condition in which a person has a sudden and frequent need to urinate. ??? Several conditions may lead to an overactive bladder. ??? Treatment for overactive bladder depends on the cause and severity of your condition. ??? Making lifestyle changes, doing Kegel exercises, keeping a log, and taking medicines can help with this condition. This information is not intended to replace advice given to you by your health care provider. Make sure you discuss any questions you have with your health care provider. Document Revised: 03/19/2021 Document Reviewed: 03/19/2021 [employer] Patient Education ?? 2023 [employer]. Follow Up Care 08/16/2024 09:56:41 With:Follow up in Spring Address:Unknown When: Unknown Patient Care team information Care Team Personnel Name: Dmitriy Presley DO Position: FT Physician Member Role: Primary Care Physician Address: [address] [place] [address] [address] Telecom: Care Team Related Persons Name: NICK FISHER Name: ILSA DAVALOS Insurance Providers Guarantor name: Health Plan Information #: 1 Payer: NA Payer Identifier: [id number] Member Number: [id number] Group Number: [id number] Subscriber Identifier: [id number] Relationship to Subscriber: Self Coverage Type: MEDICARE Coverage Verification Date: 25 Telecom: NA Address: Health Plan Information #: 2 Payer: NA Payer Identifier: [id number] Member Number: [id number] Group Number: NA Subscriber Identifier: [id number] Relationship to Subscriber: Self Coverage Type: PRIVATE HEALTH INSURANCE Coverage Verification Date: 25 Telecom: NA Address:
[2025-02-09 13:41] VITALS: BP 105/94; PULSE 72; TEMP 36.4; O2SAT 91; BMI 34.2
--- OUTSIDE RECORDS SUMMARY | 2025-02-21 06:49 | XMS_ITS | Patient Health Record ---
Author Organization [facility] [place] Address [address] [place] [address] Care Team Providers Care Representative Phlebotomy Services Name Role Phone Dmitriy Presley DO Primary Care Provider Unavailab Carolin Mc Unavailable [phone] Reason For Referral No Information Encounters Encounter Location Date Provider Diagnosis [facility] [address] [place] [address] 11/30/2024 Carolin Silva Plan Of Treatment Next Appt Details Provider Name:Carolin Silva , 03/01/2025 11:45:00 AM, [address] [place], [address], Insurance Providers Payer Name Payer Address Payer Phone Subscriber Number Group Number Insured Name Patient Relationship to Insured Coverage Start Date Coverage End Date [place]IC[place] [address] [place] [address] [id number] Kathy Washburn Self - patient is the insured 7 [facility] [address] [place] [address] [id number] Kathy Washburn Self - patient is the insured 7
--- OUTSIDE RECORDS SUMMARY | 2025-02-21 06:49 | XMS_ITS | Encounter Summary ---
Author Organization [facility] Address [address] [place] [address] Care Team Providers Care Automotive Detailer Name Role Phone Dmitriy Presley DO Primary Care Provider [phone] Dmitriy Presley DO Unavailable [phone] Dmitriy Presley DO Unavailable [phone] Source Comments In the event this information is protected by the Federal Confidentiality of Alcohol and Drug AbusePatient Records regulations: The Federal rules restrict any use of the information to criminally investigate or prosecute any alcohol or drug abuse patient.[facility] Encounter Details Date Type Department [...] N ot on file 03/12/2021 Data from: [email or web address] Last address used for calculation Not [...] 12/19/2025 11:00 AM EDT Office Visit Rheumatology [address] [place] [address] [place] [address] [facility] [place] [address] Return in about 1 year (around 12/17/2025). documented as of this encounter Visit Diagnoses Not on filedocumented in this encounter Care Teams Automotive Detailer Relationship Specialty Start Date End Date Dmitriy Presley DO [address] [place] [address] PCP - General Family Medicine 08/01/11 Dmitriy Presley DO [address] [place] [address] Referring Family Medicine 10/04/20 Dmitriy Presley DO [address] [place] [address] Referring Family Medicine 01/09/21 documented as of this encounter
--- OUTSIDE RECORDS SUMMARY | 2025-02-21 06:49 | XMS_ITS | Patient Health Record ---
Author Organization [facility] Address [facility] [place] [address] Care Team Providers Care Automobile Service Advisor Name Role Phone Dmitriy Presley DO Primary Care Provider Unavailab Willy Davis Unavailable [phone] Allergies Allergen (clinical drug ingredient) Drug/Non Drug [...] Duration) Notes Start Date End Date Status metFORMIN HCl 1000 MG 1 tablet with a me al Orally twice a day Active Lipitor 20 MG 1 [...] before bedtime Orally twice a day Active Levothyroxine Sodium 100 MCG 1 tablet in the morning on an empty stomach Orally Once a day Active Propranolol HCl ER 60 MG 1 capsule Orall y Once a day Active Triamterene-HCTZ 37.5-25 MG 1 tablet in the morning Orally Once a day Active Ezetimibe 10 MG 1 tablet Orally Once a day Active Social History Tobacco Use: Social History Observation Description Date Details (start date - stop date) Former Smoker NA - NA tobacco use Question Answer Notes Patient is a: former smoker quit 1998 Problems Problem Type SNOMED Code ICD Code Onset Dates Problem Status W/U Status Risk Notes Problem Chronic lymphoid leukemia, disease (17967033) 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) Active confirmed Problem Polyneuropathy due to type 2 diabetes mellitus (120858113) Type 2 diabetes mellitus with diabetic polyneuropathy (E11.42) Active confirmed Problem Type 2 diabetes mellitus with peripheral angiopathy (091091722) Type 2 diabetes mellitus with diabetic peripheral angiopathy without gangrene (E11.51) Active confirmed Problem Dilatation of aorta (13035241) Thoracic aortic ectasia (I77.810) Active confirmed Problem Rheumatoid arthritis (81722034) Rheumatoid arthritis, unspecified (M06.9) Active confirmed Problem Tinea unguium (852039883) Tinea unguium (B35.1) Active confirmed Problem Immunodeficiency disorder (disorder) (648249775) 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) Active confirmed Problem Chronic kidney disease stage 3B (disorder) (248348469) Chronic kidney disease, stage 3b (N18.32) Active confirmed Vital Signs Blood pressure diastolic 60 mm Hg 02/08/2025 Height 69 in 02/08/2025 Blood pressure systolic 86 mm Hg 02/08/2025 Weight 232 lbs 02/08/2025 BMI 34.26 02/08/2025 Encounters Encounter Location Date Provider Diagnosis [address] [place] [address] 05/03/2024 Willy Schwarz Tinea unguium B35.1 ; Type 2 diabetes mellitus with diabetic peripheral angiopathy without gangrene E11.51 and Type 2 diabetes mellitus with diabetic polyneuropathy E11.42 [facility] [address] [place] [address] 08/10/2024 Willy Schwarz Tinea unguium B35.1 ; Type 2 diabetes mellitus with diabetic peripheral angiopathy without gangrene E11.51 ; Type 2 diabetes mellitus with diabetic polyneuropathy E11.42 ; Chronic lymphocytic leukemia of B-cell type not having achieved remission C91.10 ; Rheumatoid arthritis, unspecified M06.9 and Immunodeficiency due to conditions classified elsewhere D84.81 [facility] [address] [place] [address] 11/09/2024 Willy Schwarz Tinea unguium B35.1 ; Type 2 diabetes mellitus with diabetic peripheral angiopathy without gangrene E11.51 ; Type 2 diabetes mellitus with diabetic polyneuropathy E11.42 and jail (current) use of oral hypoglycemic drugs Z79.[address] [facility] [address] [place] [address] 02/08/2025 Willy Schwarz Tinea unguium B35.1 ; Type 2 diabetes mellitus with diabetic peripheral angiopathy without gangrene E11.51 ; Type 2 diabetes mellitus with diabetic polyneuropathy E11.42 ; jail (current) use of oral hypoglycemic drugs Z79.84 [...] angiopathy without gangrene (ICD-10 - E11.51) 02/08/2025 Tinea unguium (ICD-10 - B35.1) I [...] with diabetic polyneuropathy (ICD-10 - E11.42) 02/08/2025 Type 2 diabetes mellitus with diabetic [...] and patient confirms understanding of such. 11/09/2024 jail (current) use of oral hypoglycemic drugs (ICD-10 - Z79.84) 02/08/2025 jail (current) use of oral hypoglycemic drugs (ICD-10 - Z79.84) 02/08/2025 Chronic kidney disease, stage 3b (ICD-10 - N18.32) Stable from a podiatric perspective, stated to continue to follow up with the treating provider. If any acute issues arise patient advised to immediately call treating provider and patient confirms understanding of such. 08/10/2024 Rheumatoid arthritis, unspecified (ICD-10 - M06.9) [...] Plan Of Treatment Next Appt Details Provider Name:iWlly muir, 05/10/2025 03:15:00 PM, [facility], [facility], [place], [address], Insurance Providers Payer Name Payer Address Payer Phone Subscriber Number Group Number Insured Name Patient Relationship to Insured Coverage Start Date Coverage End Date Medicare Part B [id number] Part [facility] [place] [address] [place] [address] [id number] Kathy Washburn Self - patient is the insured [facility] Health Care Options [address] [place] [address] [phone] [id number] Kathy Washburn Self - patient is the insured Medical (General) History Medical History History ICD Code Type II diabetes leukemia hypertension osteoarthritis fibromyalgia Thyroid disease Hypercholestrolemia Surgical History Surgery Date(Month/Year) hernia repair hysterectomy knee replacement x2 back surgery Hospitalization History Reason Date(Month/Year) see surgical
--- OUTSIDE RECORDS SUMMARY | 2025-02-21 06:49 | XMS_ITS | Encounter Summary ---
Author Organization [facility] Address [facility] [place] [address] Care Team Providers Care Locomotive Pipe Fitter Name Role Phone Dmitriy Presley DO Primary Care Provider [phone] Dmitriy Presley DO Unavailable [phone] Dmitriy Presley DO Unavailable [phone] Source Comments In the event this information is protected by the Federal Confidentiality of Alcohol and Drug AbusePatient Records regulations: The Federal rules restrict any use of the information to criminally investigate or prosecute any alcohol or drug abuse patient.[facility] Encounter Details Date Type Department Care Team (Late st Contact Info) Description 11/11/2024 Patient [facility] [place] [id number] Leona Romero RPh At your next appointment, choose [facility]. Social History Tobacco Use Types [...] is lower risk 4 02/07/2023 Data from: https://www.neighborhoodatlas.medicine.[facility].edu/. Last address used for calculation [...] 12/19/2025 11:00 AM EDT Office Visit Rheumatology [address] [place] [address] [place] [address] [facility] [place] [address] Return in about 1 year (around 12/17/2025). documented as of this encounter Visit Diagnoses Not on filedocumented in this encounter Care Teams Locomotive Pipe Fitter Relationship Specialty Start Date End Date Dmitriy Presley DO [address] [place] [address] PCP - General Family Medicine 08/01/11 Dmitriy Presley DO [address] [place] [address] Referring Family Medicine 10/04/20 Dmitriy Presley DO [address] [place] [address] Referring Family Medicine 01/09/21 documented as of this encounter
--- OUTSIDE RECORDS SUMMARY | 2025-02-21 06:49 | XMS_ITS | Encounter Summary ---
Author Organization [facility] Address [address] [place] [address] Care Team Providers Care Head Of Cytogenetics Name Role Phone Dmitriy Persley DO Primary Care Provider [phone] Dmitriy Presley DO Unavailable [phone] Dmitriy Presley DO Unavailable [phone] Source Comments In the event this information is protected by the Federal Confidentiality of Alcohol and Drug AbusePatient Records regulations: The Federal rules restrict any use of the information to criminally investigate or prosecute any alcohol or drug abuse patient.[facility] Encounter Details Date Type Department Care Team (Late st Contact Info) Description 04/03/2022 Abstract Hematology/Oncology [address] [place] [address] Santos Lares MD [address] [facility] [place] [address] Social History Tobacco Use Types [...] N ot on file 03/12/2021 Data from: https://www.neighborhoodatlas.medicine.[facility].edu/. Last address used for calculation Not on [...] 12/19/2025 11:00 AM EDT Office Visit Rheumatology [address] [place] [address] [place] [address] [facility] [place] [address] Return in about 1 year (around 12/17/2025). documented as of this encounter Visit Diagnoses Not on filedocumented in this encounter Care Teams Head Of Cytogenetics Relationship Specialty Start Date End Date Dmitriy Presley DO [address] [place] [address] PCP - General Family Medicine 08/01/11 Dmitriy Presley DO [address] [place] [address] Referring Family Medicine 10/04/20 Dmitriy Presley DO [address] [place] [address] Referring Family Medicine 01/09/21 documented as of this encounter
--- OUTSIDE RECORDS SUMMARY | 2025-02-21 06:49 | XMS_ITS | Clinical Summary ---
Author Organization [facility] Address [address] [place] [address] Care Team Providers Care Clinical Writer Name Role Phone Dmitriy Presley DO Primary Care Provider Dmitriy Presley DO Unavailable [phone] Dmitriy Presley DO Unavailable [phone] Allergies Active Allergy Reactions Criticality Noted Date [...] 12/17/2024 10:20 AM EDT Office Visit Rheumatology [address] [place] [address] Bertrand Morrow MD Fibromyalgia (Primary Dx); Primary osteoarthritis involving multiple joints; Type 2 diabetes mellitus without complication, with long-term current use of insulin (HCC); Long-term use of Plaquenil from Last 3 Months Family History Medical [...] is lower risk 4 02/07/2023 Data from: https://www.neighborhoodatlas.medicine.[facility].edu/. Last address used for calculation [address] [facility] 02/07/2023 Comments No Sex and Gender Information [...] 12/19/2025 11:00 AM EDT Office Visit Rheumatology [address] [place] [address] [place] [address] [place] [address] Return in about 1 year (around 12/17/2025). Health Maintenance Due Date Last Done Comments HbA1C 1947 Diabetic Foot Exam 1952 Dilated Retinal Exam 1952 Urine Albumin:Creatinine Ratio 1952 Anxiety Screening 1960 Depression Screening 1960 LDL Cholesterol 1960 Medicare Annual Wellness Visit 06/13/2007 Bone Density Screening 2007 Shingrix Vaccine (2 of 2) 08/18/2023 06/23/2023 Advance Directive Discussion 07/14/2024 Influenza Vaccine (#1) 2025 4, 04/15/2023, 04/25/2021, Additional history exists DTaP,Tdap,Td Vaccine (2 - Td or Tdap) 01/14/2032 01/13/2022 Pneumococcal Vaccine: 50+ Completed 2022, 04/22/2022, 07/14/2019, Additional history exists RSV Vaccine Completed 06/23/2023 Insurance [facility] Address: [address] [place] [address] MEDICARE Care Teams Clinical Writer Relationship Specialty Start Date End Date Dmitriy Presley DO [address] [place] [address] PCP - General Family Medicine 08/01/11 Dmitriy Presley DO [address] [place] [address] Referring Family Medicine 10/04/20 Dmitriy Presley DO [address] [place] [address] Referring Family Medicine 01/09/21
--- OUTSIDE RECORDS SUMMARY | 2025-02-21 06:49 | XMS_ITS | Encounter Summary ---
Author Organization [facility] Address [facility] [place] [address] Care Team Providers Care Cabin Crew Name Role Phone Dmitriy Presley DO Primary Care Provider [phone] Dmitriy Presley DO Unavailable [phone] Dmitriy Presley DO Unavailable [phone] Source Comments In the event this information is protected by the Federal Confidentiality of Alcohol and Drug AbusePatient Records regulations: The Federal rules restrict any use of the information to criminally investigate or prosecute any alcohol or drug abuse patient.[facility] Encounter Details Date Type Department Care Team (Late st Contact Info) Description 05/10/2024 Patient [facility] -3 [address] [place] [address] Leona Romero RPh At your next appointment, choose [facility]. Social History Tobacco Use Types [...] is lower risk 4 02/07/2023 Data from: https://www.neighborhoodatlas.medicine.[facility].edu/. Last address used for calculation [...] 12/19/2025 11:00 AM EDT Office Visit Rheumatology [address] [place] [address] [place] [address] [facility] [place] [address] Return in about 1 year (around 12/17/2025). documented as of this encounter Visit Diagnoses Not on filedocumented in this encounter Care Teams Cabin Crew Relationship Specialty Start Date End Date Dmitriy Presley DO [address] [place] [address] PCP - General Family Medicine 08/01/11 Dmitriy Presley DO [address] [place] [address] Referring Family Medicine 10/04/20 Dmitriy Presley DO [address] [place] [address] Referring Family Medicine 01/09/21 documented as of this encounter
--- OUTSIDE RECORDS SUMMARY | 2025-02-21 06:49 | XMS_ITS | Clinical Summary ---
Author Organization [facility] Address [address] [facility], [address] [place] [address] Care Team Providers Care Nozzleman Name Role Phone Dmitriy Presley DO Primary [...] [employer] HE[employer] CARE MEDICARE SUPP Care Teams Nozzleman Relationship Specialty Start Date End Date Dmitriy Presley DO PCP - General Family Medicine 02/05/19
--- OUTSIDE RECORDS SUMMARY | 2025-02-21 06:49 | XMS_ITS | Clinical Summary ---
Author Organization [facility] Address [address] [place] [address] Phone Care Team Providers Care Glass Silverer Name Role Phone Dmitriy Presley DO Primary Care Provider [phone] Social History Tobacco Use Types Packs/Day Years Used Date Smoking Tobacco: Never Assessed Comments Unknown Sex and Gender Information Value Date Recorded Sex Assigned at Not on file Legal Sex Female 3:02 PM EST Gender Identity Not on file Sexual Orientation Not on file Plan of Treatment Health Maintenance Due Date Last Done Comments Lipid Panel 1942 Yearly Adult Physical 1942 DTaP/Tdap/Td Vaccines (1 - Tdap) 1964 Zoster Vaccines (1 of 2) 1992 Bone Density Scan 2007 RSV High Risk: (Elderly (60+) or Population) [...] age to complete this topic Care Teams Glass Silverer Relationship Specialty Start Date End Date Dmitriy Presley DO PCP - General 05/13/18
--- OUTSIDE RECORDS SUMMARY | 2025-02-21 06:54 | XMS_ITS | CCD ---
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 Role Phone Ayanna Vicente Primary Care Provider Ayanna Vicente Unavailable Ayanna Vicente Unavailable [phone] Ayanna Vicente Unavailable Ayanna Milner Unavailable DO Ayanna Vicente Primary Care Provider MD James Redding Emergency Provider [phone] MD Bertram Garrison Admit Provider MD Bertram Garrison Attending Provider MD Galo Max Admit Provider MD Galo Max Attending Provider ALLYSSA Penn Other Provider Unavailable ALLYSSA Orourke Other Provider Unavailable ALLYSSA Camejo Other Provider Unavailable ALLYSSA Das Other Provider Unavailable ALLYSSA Acosta Other Provider Unavailable Mae RN Laura Other Provider Unavailable MD Yuliana Hale Other Provider MD Herman Kevin Other Provider [employer], 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 Kitty Villalobos Other Provider DO Madeline Juarez Other Provider MD Marcio Hernandez Other Provider DO Loco Velasquez Other Provider [phone] MD Elgin Irby Other Provider [phone] MD Adali Salamanca Other Provider ART Riojas-BC Valarie Other Provider MD Max Paulino Other Provider MD Faisal Abel Other Provider MD Bertram [...] Primary Care Provider Ayanna Vicente DO Unavailable [phone] Ayanna Vicente DO Unavailable DO Ayanna Vicente Primary Care Provider [phone] DO Ayanna Vicente Attending Provider MD Santos Lares Attending Provider Ayanna Vicente Primary Care Unavailable PABLO Dubon Attending Provider DO Ayanna Vicente Primary Care Provider DO Ayanna Vicente Attending Provider MD Santos Lares Attending Provider PABLO Dubon Attending Provider DR AYANNA VICENTE Primary Care Unavailable LAKSHMIPATHY ., NARENDRANATH Attending Abigail vailable VERNONMIPATHJoslyn ., NARENDRANATH Admitting Abigail vailable Ayanna Vicente Primary Care Physician DO Ayanna Vicente Primary Care Provider DO Ayanna Vicente Attending Provider Junior Butterfield Unavailable Homa Mckeon Unavailable Ayanna Vicente MD Primary Care Provider DO Ayanna Vicente Primary Care Provider DO Ayanna Vicente Attending Provider DO Ayanna Vicente Primary Care Provider DO Ayanna Vicente Attending Provider Ayanna Vicente DO Primary Care Provider Ayanna Vicente DO Unavailable Ayanna Vicente DO Unavailable DO Ayanna Vicente Primary Care Provider DO Ayanna Vicente Attending Provider Ayanna Vicente DO Primary Care Provider Ayanna Vicente DO Attending Provider [phone] Aundrea DO Christopher Unavailable Ayanna Vicente DO Primary Care Provider Ayanna Vicente DO Attending Provider Marker DO, Tri Vasquez Attending Provider Ayanna Vicente DO Attending Provider AYANNA VICENTE Primary Care Unavailable SELF Referring Unavailable ZOHAIB GERMAN Attending Unavailable AYANNA VICENTE Primary Care Unavailable AYANNA VICENTE Primary Care Unavailable CHAD FREITAS Attending Unavailable ZOHAIB GERMAN Attending Unavailable AYANNA VICENTE Primary Care Unavailable Ayanna Vicente MD Primary Care Provider Aundrea WISDOM Christopher Unavailable ESVIN DUBON Attending Unavailable JAMES SMITH Attending Unavailable BABITA GUILLAUME Attending Unavailable AYANNA VICENTE Referring Unavailable MOE BETTS Attending Unavailable ROXANE, MOE Hogan Attending Unavailable ENRIQUE HAMMONDS Attending Unavailable BABITA GUILLAUME Referring Unavailable Aundrea WISDOM, Christopher Unavailable [phone] Ayanna Vicente DO Attending Provider Ayanna Vicente DO Primary Care Provider [phone] Lesli Arevalo MD Attending Provider Moe Betts DO Attending Provider Ayanna Vicente Admitting Unavailable Ayanna Vicente Attending Unavailable Moe Betts Attending Unavailable Ayanna Vicente Primary Care Unavailable Moe Betts Admitting Unavailable Marker, Tri Vasquez Admitting Unavailable Marker, Tri Vasquez Attending Unavailable Ayanna Vicente Admitting Unavailable Ayanna Vicente Attending Unavailable Ayanna Vicente Attending Unavailable Sakina, Ayanna Admitting Unavailable Ayanna Vicente Primary Care Unavailable Ayanna Vicente Admitting Unavailable Ayanna Vicente Primary Care Unavailable Ayanna Vicente Attending Unavailable Sakina, Ayanna Admitting Unavailable Sakina, Ayanna Primary Care Unavailable Sakina, Ayanna Attending Unavailable Sujey Stewart Attending Unavailable SUSAN RANDOLPH Attending Unavailable SUSAN RANDOLPH Attending Unavailable SUSAN RANDOLPH Attending Unavailable Giedraitis , Andrius Vytautas Attending Unavailable Giedraitis MD, Andrius Vytautas Attending Unavailable Giedraitis MD, Andrius Vytautas Attending Unavailable Giedraitis MD, Andrius Vytautas Attending Unavailable Giedraitis MD, Andrius Vytautas Attending Unavailable Giedraitis MD, Andrius Vytautas Attending Unavailable Giedraitis MD, Andrius Vytautas Attending Unavailable Giedraitis MD, Andrius Vytautas Attending Unavailable Giedraitis MD, Andrius Vytautas Attending Unavailable Giedraitis MD, Andrius Vytautas Attending Unavailable Ayanna Vicente DO Primary Care Provider Giosmin ROMEO, Andrius Attending Provider Ayanna Vicente DO Attending Provider Allergies Allergy Classification Reported Allergen(s) Allergy Type Date of Onset Reaction(s) Facility Cephalosporins (antibiotic) (1 source) Cephalosporins (Antibiotic) Drug Allergy 02-20-20 04 Hives, Swelling [facility] (20 sources) cefpodoxime; Translations: [Vantin] Drug Allergy 12-24-19 16 Eye swelling (finding) [facility] (20 sources) cepahlosporins Propensity to adverse reactions Unknown [facility] [place] Other (20 sources) Cephalosporins (Antibiotic); Translations: [Cephalosporins] Allergy to substance 02-20-20 04 Hives, Swelling, Swelling (morphologic abnormality), Eye swelling (finding), Unknown [facility] Comment on above: Eyes swelled also (20 sources) cefpodoxime; Translations: [CEFPODOXIME] Drug Allergy 02-17-20 19 Unknown, Other [facility] (1 source) Amoxicillin Drug Allergy 12-24-19 16 [facility] (15 sources) Medicinal cephalosporin and acting as antibacterial agent (FN) Drug allergy Unknown [facility] [place] Other (2 sources) Bacitracin / Neomycin / Polymyxin B Drug Allergy Unknown [facility] [place] Other (20 sources) Bacitracin; Translations: [bacitracin] Drug Allergy 08-12-19 Unknown Reaction [facility] (20 sources) Neomycin; Translations: [neomycin] Drug Allergy 08-12-19 Unknown Reaction [facility] (20 sources) polymyxin B; Translations: [polymyxin B] Allergy to substance 08-12-19 Unknown Reaction [facility] (1 source) cefpodoxime Drug Allergy 01-28-20 [facility] Repository Medications Current Medications Medication Drug Class(es) Dates Sig (Normalized) Sig (Original) acetaminophen 325 mg / oxyCODONE hydrochloride 5 mg oral tablet (20 sources) Opioid Agonist Start: 02-05-2024 End: 02-15-2025 Oxycodone-Acetamin ophen (Percocet) 5-325 mg tablet Active 1 TAB PO .COMPLEX 60 February 15, 2025 1 tab orally one to two times a day as needed Complies with drug therapy Start: 07-16-2023 oxyCODONE-Acet aminophen 5-325 MG 1 [...] Date: 10/26/20 Status: Ordered Repeat number: 1 Start: 10-26-2020 take 1 tablet by jeniffer th every six hours acetaminophen-oxycodone 325 mg-5 mg oral tablet tab(s), Oral, q6hr, Refill(s) 0 Start Date: 10/26/20 Status: Ordered Start: 03-26-2017 End: 04-02-2017 take 1 tablet by mouth every six hours as needed for pain Oxycodone-Acetaminophen 5-325 mg Tablet Discontinued 1 TAB PO Q6H as needed for Pain Scale 1 - 5 40 March 26, 2017 12:00am April 02, [...] Status: Taking; Provider: Mike Luther ( ) Complies with drug therapy take 1 tablet by jeniffer th every twenty-four hours Vitamin C 500 MG 1 tablet Orally Once a day Active aspirin 81 mg chewable tablet (20 sources) Platelet Aggregation Inhibitor, Nonsteroidal Anti-inflammatory Drug Start: 10-26-2020 take 1 mg by mouth once daily aspirin 81 mg Oral EC Tab mg tab(s), Oral, Daily, Refills(s) 0 Start Date: 10/26/20 Status: Ordered Repeat number: 1 Start: 03-13-2017 End: 01-24-2022 take 1 tablet [...] above: Take one (1) tablet daily . B-Complex With Vitamin C tablet (4 sources) Start: 12-16-2024 take 1 tablet by mouth once daily B-Complex With Vitamin C tablet Active 1 TAB PO Daily December 16, 2024 12:00am Complies with drug therapy Start: 12-16-2024 take 1 tablet by mouth once da alda Start: 12-16-2024 take 1 tablet by mouth once da alda B-Complex With Vitamin C tablet Active 1 TAB PO Daily December 16, 2024 12:00am Centrum Silver (20 sources) Centrum Silver A ctive CENTRUM SILVER TABLET (12 sources) Start: 02-20-2004 CENTRUM SILVER TABLET Indications: [...] Status: Taking; Provider: Mike Luther ( ) Complies with drug therapy Vitamin D3 125 M CG (5000 UT) as directed Orally Active Vitamin D3 125 M CG (5000 UT) as directed Orally Active ciprofloxacin 500 mg oral tablet (20 sources) Quinolone Antimicrobial Start: 02-08-2025 End: 02-15-2025 take 1 tablet by mouth every twelve hours Cipro 500 mg Tab 500 mg = 1 tab(s), Oral, q12hr, X 7 day(s), # 14 tab(s), Refills(s) 0, Pharmacy: [id number], 178, cm, 02/08/25 9:03:00 EDT, Height/Length Dosing, 105.1, kg, 02/08/25 9:03:00 EDT, Weight Dosing Start Date: 02/08/25 Stop Date: 02/15/25 Status: Ordered Quantity: 14.0 Unit: tab(s) Repeat number: 1 Start: 02-10-2024 End: 03-08-2024 take 1 tablet by mouth twice daily Ciprofloxacin Hcl (Cipro) 250 mg tablet Discontinued 250 MG PO Twice daily 10 February 10, 2024 12:00am March 08, 2024 2:47pm Start: 05-20-2018 End: 01-12-2025 take 1 tablet by mouth twice daily Ciprofloxacin Hcl (Cipro) 500 mg tablet Discontinued 500 MG PO Twice daily 14 August 11, 2024 2:38pm November 10, 2024 3:51pm estradiol 0.1 mg/ml vaginal cream (10 sources) Estrogen Start: 02-08-2025 Estrace 0.1 mg /g Cream See Instructions, 42.5 gm, Refill(s) 6, apply a pea-sized amount vaginally and around the urethra 3x per week for UTI prevention, [facility], 178, cm, 02/08/25 9:03:00 EDT, Height/Length Dosing, 105.1, kg, 02/08/25 9:03:00 EDT, Weight Dosing Start Date: 02/08/25 Status: Ordered Quantity: 42.5 Unit: g Repeat number: 7 Start: 11-10-2024 Estradiol 0.01 % (0.1 mg/gram) cream Active VAGINAL 3 Times a week November 10, 2024 12:00am Complies with drug therapy Start: 08-16-2024 Estrace 0.1 MG /GM vaginal cream See Instructions, 42.5 gm, Refill(s) 6, apply a pea-sized amount vaginally and around the urethra 3x per week for UTI prevention, [facility], 178, cm, 08/16/24 9:10:00 EST, Height/Length Dosing, 103, kg, 08/16/24 9:10:00 EST, Weight Dosing 08/16/2024 Active Start: 08-16-2024 Estrace 0.1 mg /g Cream See Instructions, 42.5 gm, Refill(s) 6, apply a pea-sized amount vaginally and around the urethra 3x per week for UTI prevention, [facility], 178, cm, 08/16/24 9:10:00 EST, Height/Length Dosing, 103, kg, 08/16/24 9:10:00 EST, Weight Dosing Start Date: 08/16/24 Status: Ordered ezetimibe 10 mg oral tablet (20 sources) Dietary Cholesterol Absorption Inhibitor Start: 03-30-2024 take 1 tablet by mouth once daily Ezetimibe 10 mg tablet Active 0 .ROUTE .COMPLEX March 30, 2024 10:02am TAKE 1 TABLET BY MOUTH ONCE DAILY Complies with drug therapy Start: 03-30-2024 take 1 tablet by jeniffer th once daily Ezetimibe Active 0 .ROUTE .COMPLEX March 30, 2024 9:02am TAKE 1 TABLET BY MOUTH ONCE DAILY Start: 03-30-2024 take 1 tablet by jeniffer th once daily Ezetimibe Active 0 .ROUTE .COMPLEX March 30, 2024 10:02am TAKE 1 TABLET BY MOUTH ONCE DAILY Start: 02-20-2004 End: 03-30-2024 take 1 tablet by mouth at bedtime Ezetimibe 10 mg Tablet Discontinued 10 MG PO Bedtime January 24, 2022 12:00am March 30, 2024 10:03am Comment on above: Take one(1) tablet d aily. Glucometer (20 sources) Start: 02-21-20 Glucometer Feb, Active hydroCHLOROthiazide 25 mg / triamterene 37.5 mg oral tablet (20 sources) Potassium-sparing Diuretic, Thiazide Diuretic Start: 01-28-20 take 0.5 tablet by mouth once daily Triamterene-Hydroc hlorothiazid 37.5-25 mg tablet Active 0.5 TAB PO Daily January 27, 2025 1:59pm Complies with drug therapy Start: 12-16-2024 End: 01-27-2025 take 0.5 tablet by mouth once Triamterene-Hydrochlorothiazid 37.5-25 m g tablet Discontinued 0.5 TAB PO Once December 16, 2024 2:33pm January 27, 2025 2:00pm Start: 04-19-2024 triamterene-hy drochlorothiazide (Maxzide-25) 37.5-25 MG tablet 04/19/2024 Active Start: 10-13-2023 End: 12-16-2024 take 0.5 tablet by mouth once daily Triamterene-Hydrochlorothiazid 37.5-25 m g tablet Discontinued 0 .ROUTE .COMPLEX 45 April 19, 2024 4:16pm December 16, 2024 2:38pm TAKE 1/2 (ONE-HALF) OF A TABLET BY MOUTH DAILY Start: 03-13-2017 End: 10-13-2023 take 0.5 tablet by mouth once daily Triamterene-Hydrochlorothiazid 37.5-25 m g tablet Discontinued 0 PO Daily October 13, 2023 12:00am October 13, 2023 2:09pm take 1/2 tablet by mouth daily End: 06-23-2024 triamterene-hydrochlorothiaz shagufta (Maxzide) 75-50 MG tablet 1 (one) time each day at the same time. 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 180 tablet 3 05/17/2024 12/17/2024 Discontinued Start: 12-19-2020 take 400 mg by mouth once daily Plaquenil 400 mg, Oral, Daily, Refills(s) 0 Start Date: 12/19/20 Status: Ordered Start: 03-13-2017 End: 01-13-2022 take 1 tablet by mouth once daily Hydroxychloroquine 200 mg Tablet Discontinued 200 MG PO Daily April 02, 2017 12:00am January 13, 2022 4:45pm take 1 tablet by jeniffer twice daily hydroxychloroquine (Plaquenil) 200 MG tablet take 1 tablet (200MG) by ORAL route 2 times every day Oral Active Plaquenil 200 mg 1 tablet twice a day Active Comment on above: Take 400 mg by mouth once daily. 3 ml insulin glargine 100 unt/ml pen injector (20 sources) Insulin Analog Start: 02-10-2024 End: 01-11-2025 Insulin Glargine (Lantus Solostar U-100 Insulin) 100 unit/mL (3 mL) insulin pen Active 36 UNIT SUBCUT Every evening 45 90 January 11, 2025 9:44am Complies with drug therapy Start: 10-21-2023 End: 02-10-2024 Insulin Glargine (Lantus [...] INJECT 46 UNITS SUBCUTANEOUSLY AT BEDTIME Start: 10-02-2022 Lantus SoloSta r 100 UNIT/ML pen 10/02/2022 Active Start: 01-13-2022 End: 01-24-2022 inject [...] SoloSta r 300 UNIT/ML as directed Subcutaneous 18 May, 2021 Not-Taking Start: 10-26-2020 Lantus Solosta r Pen 100 units/mL subcutaneous solution SubCutaneous, Daily, Refills(s) 0 Start Date: 10/26/20 Status: Ordered Repeat number: 1 Start: 03-13-2017 End: 04-02-2017 inject 10 [IU] by subcutaneous injection once daily at bedtime Insulin Glargine (Lantus Solostar U-100 Insulin) 100 unit/mL (3 mL) Insulin Pen Discontinued 10 UNIT SUBCUT Daily at bedtime March 13, 2017 12:00am April 02, 2017 9:58am insulin glargine (Lantus) 100 UNIT/ML injection Active insulin glargine (LANTUS) 100 unit/mL injection Inject subcutaneously. 21 units Active Lantus SoloStar 100 UNIT/ML inject 46 units subcutaneously AT BEDTIME quantity sufficient for 90 days Active Lantus SoloStar 100 UNIT/ML inject 30 units subcutaneously AT BEDTIME Active Lantus SoloStar 100 UNIT/ML 30 units Subcutaneous qd hs Active Comment on above: Inject subcutaneousl y. 21 units ketoconazole 20 mg/ml topical cream (16 sources) Azole Antifungal ketoconazole (N IZOral) 2 % cream Active ketoconazole (NI ZOral) 2 % cream 1 application to affected [...] Orally Four times a day Sep, Active magnesium oxide 400 mg oral tablet (2 sources) Start: 01-27-2025 take 1 tablet by mouth once daily Magnesium Oxide 400 mg (241.3 mg magnesium) tablet Active 400 MG PO Daily 90 January 27, 2025 12:00am Complies with drug therapy metFORMIN hydrochloride 500 mg oral tablet (20 sources) Biguanide Start: 01-27-2025 take 1 tablet by mouth twice daily Metformin 500 mg tablet Active 500 MG PO Twice daily 180 January 27, 2025 2:16pm Complies with drug therapy Start: 12-19-2020 End: 01-27-2025 take 1 tablet by mouth twice daily Metformin 1,000 mg tablet Discontinued 1000 MG PO Twice daily October 21, 2023 12:00am April 19, 2024 4:16pm Start: 04-02-2017 End: 10-21-2023 take 2 tablets [...] each day at the same time Active Multiple Vitamin (Tab-A-Sivan) tablet (16 sources) Start: 01-24-2022 take 1 tablet by mouth once daily Multiple Vitamin (Tab-A-Sivan) tablet Take 1 tablet by mouth Daily 01/24/2022 Active Start: 01-24-2022 take 1 tablet [...] TAB PO Daily January 24, 2022 12:00am Complies with drug therapy Start: 01-24-2022 take 1 tablet by jeniffer th once daily Start: 01-24-2022 take 1 tablet by jeniffer [...] January 24, 2022 3:09pm Multivitamins and Minerals (4 sources) Start: 10-26-2020 Multivitamins and Minerals Refill(s) 0 Start Date: 10/26/20 Status: Ordered Repeat number: 1 Start: 10-26-2020 Multivitamins and Minerals Refill(s) 0 Start Date: 10/26/20 Status: Ordered oxybutynin chloride 5 mg oral tablet (20 sources) Cholinergic Muscarinic Antagonist Start: 02-11-2023 take 1 tablet by mouth once daily Oxybutynin Chloride 5 mg tablet Active 5 MG PO Daily December 16, 2024 12:00am Complies with drug therapy Start: 02-11-2023 take 1 tablet by jeniffer th three times daily as needed oxybutynin (Ditropan) 5 MG tablet See Instructions, can take 1 tab po up to TID PRN incontinence, # 90 tab(s), Refills(s) 3, Pharmacy: [id number], 178, cm, 02/11/23 11:43:00 EDT, Height/Length Dosing, 106.9, kg, 02/11/23 11:43:00 EDT, Weight Dosing 02/11/2023 Active Start: 10-02-2021 take 1 tablet by jeniffer th every twenty-four hours Ditropan XL 10 MG 1 tablet Orally Once a day Sep, Not-Taking pregabalin 150 mg oral capsule (20 sources) Start: 02-15-2025 take 1 capsule by mouth twice daily Pregabalin (Lyrica) 150 mg capsule Active 150 MG PO Twice daily 180 February 15, 2025 12:00am Complies with drug therapy Start: 06-09-2017 End: 02-15-2025 take 1 capsule by mouth twice daily Pregabalin (Lyrica) 225 mg capsule Discontinued 225 MG PO Twice daily 180 October 13, 2023 2:11pm March 30, 2024 10:02am Start: 04-02-2017 End: 10-13-2023 take 3 capsules [...] sources) Serotonin and Norepinephrine Reuptake Inhibitor Start: 01-28-20 take 1 capsule by mouth once daily Venlafaxine 75 mg capsule,extended release 24hr Active 75 MG PO Daily January 27, 2025 1:59pm Complies with drug therapy Start: 07-08-2024 End: 12-16-2024 take 1 capsule by mouth once daily at mealtime Venlafaxine 75 mg capsule,extended release 24hr Discontinued 0 .ROUTE .COMPLEX July 08, 2024 1:36pm December 16, 2024 2:38pm TAKE 1 CAPSULE BY MOUTH EVERY DAY WITH FOOD Start: 07-08-2024 End: 12-16-2024 take 1 capsule by mouth once daily at mealtime Venlafaxine 75 mg capsule,extended release 24hr Discontinued 0 .ROUTE .COMPLEX 90 July 08, 2024 1:36pm December 16, 2024 2:38pm TAKE 1 CAPSULE BY MOUTH EVERY DAY WITH FOOD Start: 07-15-2023 End: 01-27-2025 take 1 capsule by mouth every twenty-four hours Venlafaxine 75 mg capsule,extended release 24hr Discontinued 75 MG PO Once December 16, 2024 2:34pm January 27, 2025 2:00pm Start: 01-01-2022 End: 07-08-2024 take 1 capsule by mouth once daily Venlafaxine 75 mg Capsule,Extended Release 24hr Discontinued 75 MG PO Daily January 24, 2022 12:00am July 08, 2024 1:36pm Comment on above: Take 75 mg by mouth once daily. Vitamin B Complex (20 sources) Vitamin B Comple x Not-Taking Vitamin B Comple x Active Vitamin B Complex oral capsule (4 sources) Start: 10-26-2020 take 1 capsule by mouth once daily Vitamin B Complex oral capsule Oral, Daily, Refill(s) 0 Start Date: 10/26/20 Status: Ordered Repeat number: 1 Start: 10-26-2020 Vitamin B Comp stewart oral [...] 2022 11:19am amoxicillin 500 mg oral capsule (17 sources) Penicillin-class Antibacterial Start: 01-12-2024 End: 02-05-2024 [...] Discontinued 0 .ROUTE .COMPLEX October 13, 2023 2:08pm October 21, 2023 3:22pm TAKE 1 TABLET BY MOUTH DAILY Start: 10-13-2023 End: 10-21-2023 take 1 tablet by mouth once daily Atorvastatin Discontinued 0 .ROUTE .COMPLEX October 13, 2023 1:08pm October 21, 2023 2:22pm TAKE 1 TABLET BY MOUTH DAILY Start: 10-13-2023 End: 10-21-2023 take 1 tablet by mouth once daily Atorvastatin Discontinued 0 .ROUTE .COMPLEX October 13, 2023 2:08pm October 21, 2023 3:22pm TAKE 1 TABLET BY MOUTH DAILY Start: 10-13-2023 take 1 tablet by jeniffer th once daily Atorvastatin Active 0 .ROUTE .COMPLEX 90 October 13, 2023 2:08pm TAKE 1 TABLET BY MOUTH DAILY Start: 02-20-2004 End: 04-19-2024 take 1 tablet by mouth once daily Atorvastatin 20 mg tablet Discontinued 20 MG PO Daily October 21, 2023 3:22pm April 19, 2024 4:16pm Start: 02-20-2004 LIPITOR 10MG T ABLET Indications: Other specified idiopathic peripheral neuropathy Take 20 mg by mouth. 0 02/20/2004 Active Start: 02-20-2004 LIPITOR 10MG T ABLET Indications: Other specified idiopathic peripheral neuropathy Take one(1) tablet daily. 0 02/20/2004 Active Comment on above: Take one(1) tablet d aily. Take 20 mg by mouth. calcium carbonate 1250 mg / cholecalciferol 200 unt oral tablet (20 sources) Vitamin D Start: End: take 1 tablet by mouth once daily in the morning Calcium Carbonate-Vitamin D3 (Oyster Shell Calcium-Vit D3) 500 mg-5 mcg (200 unit) Tablet Discontinued 1 TAB PO Every morning January 24, 2022 12:00am December 16, 2024 2:37pm Start: 03-13-2017 End: 04-02-2017 take 1 tablet [...] 02, 2017 12:00am January 24, 2022 3:09pm Calcium Carbonate-Vitamin D3 (Oyster Shell Calcium-Vit D3) 500 mg-5 mcg (200 unit) Tablet (20 sources) Start: 01-24-2022 End: 12-16-2024 take 1 tablet by mouth once daily in the morning Calcium Carbonate-Vitamin D3 (Oyster Shell Calcium-Vit D3) 500 mg-5 mcg (200 unit) Tablet Discontinued 1 TAB PO Every morning January 24, 2022 12:00am December 16, 2024 2:37pm Start: 01-24-2022 take 1 tablet by jeniffer [...] PO Every morning January 24, 2022 12:00am citalopram 40 mg oral tablet (20 sources) [...] oral tablet (20 sources) Muscle Relaxant Start: 017 End: take 1 tablet by mouth every eight hours as needed for muscle spasms Cyclobenzaprine 5 mg Tablet Discontinued 5 MG PO Q8H as needed for Muscle Spasm 60 April 02, 2017 12:00am January 13, 2022 4:43pm dicyclomine hydrochloride 20 mg oral tablet (20 sources) Anticholinergic Start: 024 End: 025 take 1 tablet by mouth twice daily Dicyclomine 20 mg tablet Discontinued 20 MG PO Twice daily April 05, 2024 12:00am December 16, 2024 2:37pm Start: 12-17-2021 take 1 tablet by jeniffer twice daily as needed Dicyclomine HCl 20 MG 1 tablet Orally TWICE A DAY NEEDED Dec, Not-Taking docusate sodium 100 mg oral capsule (20 sources) Start: 04-02-2017 End: 01-13-2022 take 1 capsule by mouth twice daily Docusate Sodium 100 mg Capsule Discontinued 100 MG PO Twice daily 60 April 02, 2017 12:00am January 13, 2022 4:43pm docusate sodium 50 mg / sennosides, fdc 8.6 mg oral tablet (20 sources) Start: 03-26-2017 End: 04-02-2017 take 1 tablet by mouth twice daily Sennosides-Docusate Sodium (Dok Plus) 8.6-50 mg Tablet Discontinued 1 TAB PO Twice daily 40 March 26, 2017 12:00am April 02, 2017 9:59am 72 hr fentaNYL 0.025 mg/hr transdermal system (20 sources) Opioid Agonist Start: 03-26-2017 End: 04-02-2017 Fentanyl 25 mcg/hr Patch 72 Hour Discontinued 25 MCG TRANSDERML Every 72 hours 5 March 26, 2017 12:00am April 02, 2017 9:58am ferrous sulfate 324 mg delayed release oral tablet (20 sources) Start: 03-26-2017 End: 01-13-2022 take 1 tablet by mouth twice daily Ferrous Sulfate 324 mg (65 mg iron) Tablet,Delayed Release (Dr/Ec) Discontinued 324 MG PO Twice daily April 02, 2017 12:00am January 13, 2022 4:44pm furosemide 20 mg oral tablet (20 sources) Loop Diuretic Start: 01-13-2022 End: 01-15-2022 take 10 mg by mouth once daily Furosemide 20 mg tablet Discontinued 10 MG PO Daily at 799January 13, 2022 4:48pm January 15, 2022 12:05pm Start: 01-13-2022 End: 01-15-2022 take 10 mg by mouth once daily Furosemide Discontinued 10 MG PO Daily at 799January 13, 2022 3:48pm January 15, 2022 11:05am Start: 02-20-2004 End: 01-13-2022 take 1 tablet by mouth once daily Furosemide 20 mg Tablet Discontinued 20 MG PO Daily at 0800 April 02, 2017 12:00am January 13, 2022 4:48pm Comment on above: Take one(1) tablet d karla. Insulin Aspart U-100 (Novolog Flexpen U-100 Insulin) [...] January 24, 2022 3:09pm 3 ml insulin aspart, human 100 unt/ml pen injector (6 sources) Insulin Analog Start: 01-15-2022 End: 01-24-2022 Insulin Aspart U-100 (Novolog Flexpen U-100 Insulin) 100 unit/mL (3 mL) insulin pen Discontinued 0 UNITS SUBCUT 3X/Day with meals and bedtime Protocol: If the corrective scale dose has been administered within the past 4 hours, do not use corrective scale again unless otherwise directed Condition: 150-199 mg/dL Dose/Route: 3 unit Condition: 200-249 mg/dL Dose/Route: 4 unit Condition: 250-299 mg/dL Dose/Route: 8 unit Condition: 300-349 mg/dL Dose/Route: 12 unit Condition: 350-399 mg/dL Dose/Route: 14 unit Condition: greater than or = 400 mg/dL Dose/Route: 16 unit January 15, 2022 5:37pm January 24, 2022 3:09pm Please contact the information source for Protocol details. Start: 01-15-2022 End: 01-15-2022 Insulin Aspart U-100 (Novolo g Flexpen U-100 Insulin) 100 unit/mL (3 mL) Insulin Pen Discontinued 0 UNITS SUBCUT 3X/Day with meals and bedtime 0 January 15, 2022 12:00am January 15, 2022 5:37pm 3 ml insulin detemir 100 unt/ml pen [...] 2017 12:03am Insulin Glargine 100 unit/mL Cartridge (9 sources) Start: 01-13-2022 End: 01-24-2022 inject 21 [...] Date: 10/26/20 Status: Ordered Repeat number: 1 Start: 03-13-2017 End: 10-21-2023 take 1 tablet [...] morning. 07/12/2023 Active Start: 02-20-2004 End: 04-19-2024 take 1 capsule by mouth once daily Propranolol 60 mg capsule,extended release 24 hr Discontinued 60 MG PO Daily October 21, 2023 12:00am April 19, 2024 4:16pm [employer]: TAKE 1 CAPSULE BY MOUTH DAILY; Note: Source Status: Taking; Provider: Sakina Izaguirre ( ) Comment on above: Take one(1) tablet d karla. Sennosides (Senna Lax) 8.6 mg Tablet (20 [...] 02, 2017 12:00am January 13, 2022 4:47pm sennosides, fdc 8.6 mg oral tablet (3 sources) Start: 04-02-2017 End: 01-13-2022 Sennosides (Senna Lax) 8.6 mg Tablet Discontinued 2 EACH PO DAILY@12 as needed for If no BM in 2 days April 02, 2017 12:00am January 13, 2022 4:47pm sulfamethoxazole 800 mg / trimethoprim 160 mg oral tablet (20 sources) Dihydrofolate Reductase Inhibitor Antibacterial, Sulfonamide Antimicrobial Start: 03-26-2017 End: 01-13-2022 take 1 tablet by mouth twice daily Sulfamethoxazole- Trimethoprim 800-160 mg Tablet Discontinued 1 TAB PO [...] sources) Corticosteroid Start: 11-01-2022 Kenalog-40 Oct, 20 mg Start: 04-22-2018 Kenalog -40 mg 10 Apr, 2018 40 mg TRIAMTERENE-HCTZ 37.5-25 TB (2 sources) [...] aily. trospium chloride 20 mg oral tablet (20 sources) Cholinergic Muscarinic Antagonist Start: 4 End: 5 take 1 tablet by mouth twice daily Trospium 20 mg tablet Discontinued 20 MG PO Twice daily March 08, 2024 12:00am November 10, 2024 3:54pm zolpidem tartrate 5 mg oral tablet (20 sources) gamma-Aminobutyric Acid-ergic Agonist Start: 4 End: 5 take 1 tablet by mouth [...] Date: 10/26/20 Status: Ordered Repeat number: 1 Start: 04-24-2018 take 0.5 tablet by m [...] of daily living] 01-16-2022 Episodic Cardiac dysrhythmias (9 sources) Premature beats; Translations: [Other premature depolarization] 11-10-2024 Chronic Chronic kidney disease (15 sources) Chronic kidney disease stage 3B ; [...] Resolved: 03-19-2022 Chronic Fluid and electrolyte disorders (11 sources) Hyperkalemia; Translations: [Hyperkalemia] 11-10-2024 Episodic Fracture of [...] without status migrainosus] Chronic Headache; including migraine (4 sources) Headache 12-19-2020 Episodic Hypertension with complications and secondary hypertension (10 sources) Chronic kidney disease due to hypertension; Translations: [Hypertensive chronic 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 4 chronic kidney disease, or unspecified chronic kidney disease] 12-16-2024 Chronic Immunizations and screening for infectious disease (3 sources) Encounter for immunization; Translations: [Flu vaccine need Z23] Onset: 04-04-2021 Resolved: 04-04-2021 Episodic Leukemias (20 sources) Chronic lymphoid leukemia, disease; Translations: [Chronic lymphocytic leukemia of B-cell type not having achieved remission] Onset: 05-26-2024 Chronic Lymphadenitis (1 source) Axillary lymphadenopathy; Translations: [Localized enlarged lymph nodes] Episodic Menopausal disorders (16 sources) Atrophy of vagina; Translations: [Postmenopausal atrophic vaginitis] Onset: 12-06-2022 12-06-2022 Chronic Miscellaneous mental health disorders (12 sources) Chronic insomnia; Translations: [Psychophysiologic insomnia] 05-12-2024 [...] [Vitamin D deficiency, unspecified] 03-27-2017 Chronic Osteoarthritis (9 sources) Arthritis; Translations: [Osteoarthritis of right hip joint] Onset: 12-17-2024 12-19-2020 Chronic Other acquired deformities (20 sources) Deformity of foot; Translations: [Unspecified acquired deformity of unspecified lower leg] 03-08-2024 Episodic Other aftercare (6 sources) Other fci (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 therapy; Translations: [Long-term (current) use of other medications] Onset: 02-06-2022 Resolved: 02-06-2022 Episodic Other aftercare (18 sources) Long-term current use of drug therapy; Translations: [Other fci (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 therapy] 10-21-2023 Episodic Other aftercare (2 sources) H/O: high risk medication; Translations: [Other fci (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 therapy] 06-17-2024 Episodic Other aftercare (1 source) Drug therapy finding; Translations: [Other fci (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 therapy] 12-17-2024 Episodic Other aftercare (1 source) termination clerk (current) use of insulin; Translations: [Type 2 diabetes mellitus without complication, with long-term current use of insulin (HCC)] Onset: 12-17-2024 Episodic Other and unspecified benign neoplasm (20 sources) History of polyp of colon; Translations: [Personal history of colonic polyps] Episodic Other and unspecified benign neoplasm (1 source) Benign lipomatous neoplasm, unspecified Episodic Other circulatory disease (20 sources) Low blood pressure; Translations: [Hypotension, unspecified] 01-13-2022 Episodic Other circulatory disease (1 source) Hypotension, unspecified; Translations: [Hypotension, unspecified] 01-15-2022 Episodic Other connective tissue disease (16 sources) Artificial knee joint present; Translations: [Presence of unspecified artificial knee joint] Onset: 12-06-2022 12-06-2022 Chronic Other connective tissue disease (20 sources) Fibromyalgia; Translations: [Fibromyalgia] 12-19-2020 Episodic Other connective tissue disease (10 sources) Rheumatism, unspecified; Translations: [Rheumatism, unspecified and fibrositis] Onset: 04-04-2021 Resolved: 10-02-2021 Episodic Other connective tissue disease (20 sources) Rheumatism; Translations: [Rheumatism, unspecified] 10-26-2020 Episodic Other connective tissue disease (1 source) Pain in both feet; Translations: [Pain in right foot] 08-28-2023 Episodic Other connective tissue disease (1 source) Fibromyalgia; Translations: [Fibromyalgia] Onset: 12-17-2024 Episodic Other diseases of bladder and urethra [...] diseases of bladder and urethra (20 sources) Overactive bladder; Translations: [Overactive bladder] Onset: [...] Translations: [Dysphagia, unspecified] Episodic Other gastrointestinal disorders (3 sources) Change in bowel habit; Translations: [Change in bowel habit] Onset: 09-13-2021 Resolved: 09-13-2021 Episodic Other injuries and conditions due to [...] Translations: [Pleurodynia] Episodic Other lower respiratory disease (4 sources) Nodule of lung 10-26-2020 Episodic Other lower respiratory disease (1 source) Pleurodynia Episodic Other nervous system disorders (20 sources) Neuropathy; Translations: [Polyneuropathy, unspecified] 10-26-2020 Chronic Other nervous system disorders (20 sources) Polyneuropathy, unspecified; Translations: [Mononeuritis of unspecified site] Onset: 04-04-2021 Resolved: 03-19-2022 Chronic Other nervous system disorders (15 sources) Peripheral nerve disease ; Translations: [Polyneuropathy, [...] disturbances] 06-28-2024 Episodic Other non-traumatic joint disorders (4 sources) Sacroiliac disorder 10-26-2020 Episodic Other non-traumatic joint disorders (1 source) Pain in unspecified hip Episodic Other non-traumatic joint disorders (1 source) Pain in right hip Episodic Other non-traumatic joint disorders (12 sources) Hip pain; Translations: [Pain in left hip] 05-11-2024 Episodic Other non-traumatic joint disorders (7 sources) Pain in left knee; Translations: [Pain in joint, lower leg] 05-11-2024 Episodic Other nutritional; endocrine; and metabolic disorders (20 sources) Obese class I; Translations: [Body mass index (BMI) 31.0-31.9, adult] Chronic Other nutritional; endocrine; and metabolic disorders (1 source) Body mass index (BMI) 31.0-31.9, adult Chronic Other nutritional; endocrine; and metabolic disorders (10 sources) Body mass index 30+ - obesity; Translations: [Body mass index (BMI) 32.0-32.9, adult] 05-12-2024 Chronic Other nutritional; endocrine; and metabolic disorders (2 sources) Body mass index (BMI) 32.0-32.9, adult; Translations: [Body Mass Index 32.0-32.9, adult] 10-30-2024 Chronic Other nutritional; endocrine; and metabolic disorders (2 sources) Abnormal weight loss; Translations: [Weight loss R63.4] Onset: 04-04-2021 Resolved: 04-04-2021 Episodic Other screening for suspected conditions (not mental disorders or infectious disease) (20 sources) Encounter for screening mammogram for malignant neoplasm of breast; Translations: [Other specified abnormal findings of blood chemistry] Onset: 04-04-2021 Resolved: 02-06-2022 Episodic Other skin disorders (2 sources) Hidradenitis; Translations: [Hidradenitis suppurativa] 02-15-2025 Episodic Comment on above: right axilla Otitis media and related conditions (20 sources) Otitis media of right ear; Translations: [Otitis media, unspecified, right ear] 01-12-2024 Episodic Residual codes; unclassified (7 sources) Sedative, hypnotic AND/OR anxiolytic-induced sleep disorder; Translations: [Other sleep disorders] 05-12-2024 Chronic Residual codes; unclassified (5 sources) Other sleep disorders; Translations: [Other sleep [...] postprocedural states] 03-27-2017 Episodic Residual codes; unclassified (20 sources) Peripheral edema; Translations: [Localized edema] 10-26-2020 Episodic Residual codes; unclassified (4 sources) Localized edema; Translations: [Edema] 10-21-2023 Episodic Residual codes; unclassified (12 sources) Memory impairment; Translations: [Other amnesia] 05-11-2024 Episodic Residual codes; unclassified (4 sources) Other amnesia; Translations: [Memory loss] 05-11-2024 Episodic Residual codes; unclassified (2 sources) Amnesia; Translations: [Other amnesia] 06-28-2024 Episodic Residual codes; unclassified (2 sources) Family history of dementia; Translations: [Family history of other mental and behavioral disorders] 06-28-2024 Episodic Rheumatoid arthritis and related disease (16 sources) Rheumatoid arthritis; Translations: [Rheumatoid arthritis, unspecified] [...] Resolved: 12-17-2021 Episodic Other connective tissue disease (16 sources) Left achilles tendonitis; Translations: [Achilles tendinitis, left leg] Onset: 12-08-2022 12-08-2022 Episodic Other connective tissue disease (16 sources) Calcaneal spur; Translations: [Calcaneal spur, unspecified foot] Onset: 12-08-2022 12-08-2022 Episodic Other female genital disorders (16 sources) Burning sensation of vulva; Translations: [Other specified conditions associated with female genital organs and menstrual cycle] Onset: 12-06-2022 12-06-2022 Episodic Other gastrointestinal disorders (1 source) Dysphagia, unspecified Onset: 01-07-2022 Resolved: 01-07-2022 Episodic Other gastrointestinal disorders (13 sources) Diarrhea; Translations: [Diarrhea, unspecified] Onset: 06-23-2024 06-23-2024 Episodic Other nervous system disorders (16 sources) Notalgia paresthetica; Translations: [Paresthesia of skin] Onset: 12-06-2022 12-06-2022 Episodic Other nervous system disorders (16 sources) Unsteady when standing; Translations: [Unsteadiness on [...] Test Name Value Interpretation Reference Range Facility Basophils/100 WBC Manual cnt (Bld)Ordered By: Andrius Giedraitis on 02-09-2025 Basophils/100 WBC (Bld) 0.0 % Low 0.2-2.0 [facility] Eosinophils/100 WBC Manual c nt (Bld)Ordered By: Andrius Giedraitis on 02-09-2025 Eosinophils/100 WBC (Bld) 0.0 % Low 0.9-7.0 [facility] Erythrocyte distribution wid th Auto (RBC) [Ratio]Ordered By: Andrius Giedraitis on 02-09-2025 Erythrocyte distribution width (RBC) [Ratio] 13.7 % 11.0-15.0 [facility] Estimated glomerular filtrat ion rate (GFR) non- AmericanOrdered By: Josecory Azul on 02-09-2025 GFR/1.73 sq M.predicted among non-blacks MDRD (S/P/Bld) [Vol rate/Area] 35 mL/min/{1.73_m2} Low >=60 mL/min/1.73 m 2 [facility] Hematocrit Auto (Bld) [Volum e fraction]Ordered By: Som Azul on 02-09-2025 Hematocrit (Bld) [Volume fraction] 36.4 % 36.0-48.0 [facility] Hemoglobin [Mass/volume] in BloodOrdered By: Som Azul on 02-09-2025 Hemoglobin (Bld) [Mass/Vol] 11.6 g/dL Low 12.0-16.0 [facility] Laboratory - Chemistry and C hemistry - challengeOrdered By: Som Azul on 02-09-2025 Calcium [Mass/Vol] 9.0 mg/dL 8.5-10.1 [facility] Chloride [Moles/Vol] 107 mmol/L 98-107 [facility] CO2 [Moles/Vol] 30.8 mmol/L 21.0-32.0 [facility] Creatinine [Mass/Vol] 1.43 mg/dL High 0.55-1.02 [facility] GFR/1.73 sq M.predicted MDRD (S/P/Bld) [Vol rate/Area] 43 mL/min/{1.73_m2} Low >=60 mL/min/1.73 m 2 [facility] Glucose [Mass/Vol] 120 mg/dL High 74-106 [facility] Potassium [Moles/Vol] 5.0 mmol/L 3.5-5.1 [facility] Sodium [Moles/Vol] 143 mmol/L 136-145 [facility] Urea nitrogen [Mass/Vol] 36.0 mg/dL High 7.0-18.0 [facility] Urea nitrogen/Creatinine [Mass ratio] 25.2 mg/mg [facility] - Hematology and Cell countsOrdered By: Som Azul on 02-09-2025 Lymphocytes/100 WBC (Bld) 51.0 % 20.5-60.0 [facility] Monocytes/100 WBC (Bld) 5.0 % 1.7-12.0 [facility] Leukocytes [#/volume] correc andreina for nucleated erythrocytes in Blood by Automated counOrdered By: Andrius Augusteraitis on 02-09-2025 WBC corrected for nucl RBC Auto (Bld) [#/Vol] 19.3 10 3/uL High 4.0-11.0 [facility] MCH Auto (RBC) [Entitic mass ]Ordered By: Andcory Augusterarory on 02-09-2025 MCH (RBC) [Entitic mass] 30.2 pg 26.7-34.0 [facility] MCHC Auto (RBC) [Mass/Vol]Or dered By: Andrius Augusteraitis on 02-09-2025 MCHC (RBC) [Mass/Vol] 31.9 g/dL 29.9-35.2 [facility] MCV Auto (RBC) [Entitic vol] Ordered By: Andcory Augusterarory on 02-09-2025 MCV (RBC) [Entitic vol] 94.8 fL 81.0-99.0 [facility] No Panel InformationOrdered By: Andcory Augusteraitis on 02-09-2025 Absolute Basophils (Manual) 0.00 10 3/uL 0.00-0.10 [facility] Eosinophils # (Manual) 0.00 10 3/uL 0.00-0.70 [facility] Lymphocytes # (Manual) 9.84 10 3/uL High 1.20-3.80 [facility] Monocytes # (Manual) 0.96 10 3/uL High 0.30-0.80 [facility] Segmented Neutrophils # (Manual) 8.49 10 3/uL High 1.4-6.5 [facility] Platelet mean volume Auto (B ld) [Entitic vol]Ordered By: Andrius Giedraitis on 02-09-2025 Platelet mean volume (Bld) [Entitic vol] 11.8 fL 9.5-13.5 [facility] Platelets Auto (Bld) [#/Vol] Ordered By: Andrius Giedraitis on 02-09-2025 Platelets (Bld) [#/Vol] 213 10 3/uL 150-450 [facility] RBC Auto (Bld) [#/Vol]Ordere d By: Andrius Giedraitis on 02-09-2025 RBC (Bld) [#/Vol] 3.84 10 6/uL Low 4.20-5.40 [facility] Segmented neutrophils/100 WB C Manual cnt (Bld)Ordered By: Andrius Augusterarory on 02-09-2025 Segmented neutrophils/100 WBC (Bld) 44.0 % 43.0-75.0 [facility] Serum or plasma anion gap de terminationOrdered By: Andrius Augusterarory on 02-09-2025 Anion gap [Moles/Vol] 10.2 mmol/L [facility] Smudge cell detectionOrdered By: Andrius Giedraitis on 02-09-2025 Smudge cells LM Ql (Bld) SEEN [facility] Ambulatory Visit Summaryon 0 02-08-2025 Ambulatory Visit Summary Ambulatory Visi t Summary KATHY WASHBURN :1940 Visit Date:02/08/2025 Ambulatory Visit Instructions Your Diagnosis Urgency incontinence Recurrent UTI Your Care Team Attending Physician - SUSAN RANDOLPH PA-C Primary Care Physician - Ayanna Vicente DO This Is Your Medications List ciprofloxacin (Cipro 500 mg Tab) estradiol topical (Estrace 0.1 mg/g Cream) trospium (trospium 20 mg oral tablet) Contact prescribing physician if questions or concerns [...] hernia repair. Discharge Vitals Heart Rate (Peripheral) 65 Blood Pressure 100/59 Height 178 cm Height 70 in Weight 105.1 kg Weight 231.706 lb BMI 33.17 What to do next Scheduled Follow-Up Appointments 2025 10:20 AM EDT With: JOSE Stewart APRN, [place] [facility] Where: [facility] [place] [address]- You Need to Schedule the Following Appointments Follow Up with Follow up in Spring When: Medications What How Much When Instructions New ciprofloxacin (Cipro 500 mg Tab) 1 Tablets By Mouth Every 12 hours Duration: 7 Days Pickup at [facility] Unchanged estradiol topical (Estrace 0.1 mg/ g Cream) See instructions apply a pea-sized amount vaginally and around the urethra 3x per week for UTI prevention Pickup at [facility] Unchanged trospium (trospium 20 mg oral tablet) 1 Tablets By Mouth 2 times a day Duration: 30 Days Unchanged acetaminophen-oxycodo ne (acetaminophen-oxycod one 325 mg-5 [...] if questions or concerns Pharmacy Information [facility] (more content not included)... Normal [facility] Urology Office/Clinic Noteon 02-08-2025 Urology Office/Clinic Note Urology Office/Clinic Note Chief Complaint 6 month F/U HPI Staff 84 year old female here for 6 month f/u Previous DX: recurrent UTI, urgency incontinence Trospium IR PRN, Estradiol 3x week Renal US 12/22/24 C&S 09/03/24 - 75,000 colonies/ml mixed bacterial skin contaminates BBSQ 18 Pt. having incontinence, Pt. does wear a pad. Pt. will use 6-7 pads a day Pt. denies having pain with urination Pt. denies having gross hematuria Pt. denies having abd pain Pt. denies having flank pain Review of Systems PHQ Score Initial Depression Screen Score: 0 SCORE No fever, chills, malaise, myalgia. No abdominal pain, flank pain, gross hematuria. Physical Exam Vitals & Measurements HR: 65(Peripheral) BP: 100/59 HT: 70 in HT: 178 cm WT: 105.1 kg WT: 231.706 lb BMI: 33.17 General: nontoxic, NAD Mouth: moist mucosa Lungs: normal respiratory effort Cardio: regular rate, good distal perfusion Abdomen: nondistended Neurologic: Grossly normal Skin: No rashes or suspicious lesions Assessment/Plan 1. Urgency incontinence (N39.41: Urge incontinence) S/p Botox 100u 08/30/21. [place] sxs only improved for a few weeks or so. Wasn't very impressed w improvement. Does not wish to repeat Botox. Failed Myrbetriq and Oxybutynin previously. TODAY: BBSQ 18 poor control. Using Trospium IR PRN when traveling or going out of the house. Helps a lot. Minimizes side effects by using PRN. Did review [employer] brochure I provided last ov. Came w some questions. Discussed at length today. Pt would like to continue to think about it but is interested in BNE in future. Ordered: Complex E&M Add on G2211 E&M of Est. Patient Moderate 30-39 Min 84873 2. Recurrent UTI (N39.0: Urinary tract infection, site not specified) Ext Pharm Review: Cipro filled all of the following times. All rx'd by Dr Vicente. 07/16/23 (10d) 10/17/23 (10d) Cx >100k MDRO E Coli (R-FQ!) 02/10/24 (5d) Cx - Enterococcus 10-25k (S-FQ) 03/17/24 (7d) 04/05/24 (10d) Cx 05/08/24 >100k Klebsiella (lopez-S) 06/18/24 (7d) 08/11/24 (7d) Cx >100k E Coli (lopez-S) 09/05/24 - skin contam A1c 10/17/23 - 8.5 05/06/24 - 8.4 11/01/24 - 7.0 01/17/25 - BUN 35 Blending Technician 1.2 GFR [address] Arevalo Renal US 12/22/24 - no stones or obstruction. 08/16/24: add herbals, start estrogen cream, Improve/tighten glucose control. UA completed in office today shows no significant microhematuria or signs of infection. A1c is a lot better. Explained this may be why her infections have improved. She is pleased to hear this. No recent infections. Requesting Cipro Rx to have on hand for infection. Risks/benefits/side effects discussed. Continues estrogen cream and herbal preventives. Ordered: Complex E&M Add on G2211 E&M of Est. Patient Moderate 30-39 Min 74221 Orders: ciprofloxacin, 500 mg = 1 tab(s), Oral, q12hr, X 7 day(s), # 14 tab(s), Refills(s) 0, Pharmacy: [id number], 178, cm, 02/08/25 9:03:00 EDT, Height/Length Dosing, 105.1, kg, 02/08/25 9:03:00 EDT, Weight Dosing estradiol topical, See Instructions, 42.5 gm, Refill(s) 6, apply a pea-sized amount vaginally and around the urethra 3x per week for UTI prevention, [facility], 178, cm, 02/08/25 9:03:00 EDT, Height/Length Dosing, 105.1, kg, 02/08/25 9:03:00 EDT, Weight... Follow-up With When Contact Information Follow up in Spring Additional Instructions: Patient Education Overactive Bladder, Adult Problem List/Past Medical History Ongoing Arthritis [...] tab(s), Oral, Daily Cipro 500 mg Tab, 500 mg= 1 tab(s), Oral, q12hr Estrace 0.1 mg/g Cream, See Instructions, 6 refills Inderal LA 60 mg Cap-ER, 60 mg= 1 cap(s), Oral, Daily Lantus Solostar Pen 100 units/mL subcutaneous solution, SubCutaneous, Daily Lasix 20 mg Tab, 20 mg= 1 tab(s), Oral, Daily Lipitor 20 mg Tab, 20 mg= 1 tab(s), Oral, Daily Lyrica 225 mg oral capsule, 225 mg= 1 cap(s), Oral, BID Maxzide-25 oral tablet (more content not included)... Normal [facility] Comment on above: Result Comment: Elec tronically Signed By: SUSAN RANDOLPH PA-C\.br\Date and Time Signed: 02/08/25 10:51 EDT [place] barium enemaon 01-19-2025 [place] barium enema [facility] Main [place] [address] [place] [address] Fluoroscopy Report Signed Patient: Kathy Washburn MR#: [id number] : 1940 Acct:[id number] Age/Sex: 84 / F ADM Date: 01/19/25 Loc: XD Room: Type: [facility] Attending Dr: Moe Betts DO Copies to: Moe Betts DO Ordering Provider: Moe Betts DO Date of Service: 01/19/25 FL/FL barium enema: CHANGE IN BOWEL SINGLE CONTRAST BARIUM ENEMA History: Incomplete colonoscopy. Loose stools. Emergency. Sigmoid diverticuli prior polypectomy. Findings: 49 images obtained. Cumulative Air Kerma in mGy: 445.94 mGy Passage of contrast from the rectum to the cecum identified. Ileocecal valve identified. There are scattered diverticuli of the sigmoid colon with associated nonspecific narrowing of the lumen. There is no fixed luminal filling defect or additional fixed narrowing identified. No mucosal abnormality of the colon identified. Degenerative change with lumbar fixation hardware. FL/FL barium enema IMPRESSION: SIGMOID DIVERTICULOSIS. NO FIXED INTRALUMINAL FILLING DEFECT OR SIGNIFICANT NARROWING. NO SIGNIFICANT MUCOSAL ABNORMALITY IDENTIFIED. Impression dictated by: Stanford Arndt M.D. 01/19/2025 2:20 PM Dictation Location: RADIO--16 Transcribed By: [facility] 01/19/25 1420 Dictated By: Stanford Arndt DO 01/19/25 1417 Signed By: 01/19/25 1420 Normal [facility] Fluoroscopy reportOrdered By : Stanford Arndt on 01-19-2025 RF Unspecified body region [facility] [place] [address] [place] [address] Fluoroscopy Report Signed Patient: Kathy Washburn MR#: [id number] : 1940 Acct:[id number] Age/Sex: 84 / F ADM Date: 5 Loc: XD Room: Type: [facility] Attending Dr: Moe Betts DO Copies to: Moe Betts DO~ Ordering Provider: Moe Betts DO Date of Service: 01/19/25 FL/FL barium enema: CHANGE IN BOWEL SINGLE CONTRAST BARIUM ENEMA History: Incomplete colonoscopy. Loose stools. Emergency. Sigmoid diverticuliprior polypectomy. Findings: 49 images obtained. Cumulative Air Kerma in mGy: 445.94 mGy Passage of contrast from the rectum to the cecum identified. Ileocecal valve identified. There are scattered diverticuli of the sigmoid colon with associated nonspecific narrowing of the lumen. There is no fixed luminal filling defect or additional fixed narrowing identified. No mucosal abnormality of the colon identified. Degenerative change with lumbar fixation hardware. FL/FL barium enema IMPRESSION: SIGMOID DIVERTICULOSIS. NO FIXED INTRALUMINAL FILLING DEFECT OR SIGNIFICANT NARROWING. NO SIGNIFICANT MUCOSAL ABNORMALITY IDENTIFIED. Impression dictated by: Stanford Arndt M.D. 01/19/2025 2:20 PM Dictation Location: [facility] Transcribed By: [facility] 01/19/25 1420 Dictated By: Stanford Arndt DO 01/19/25 1417 Signed By: 01/19/25 1420 [facility] Erythrocyte distribution wid th Auto (RBC) [Ratio]Ordered By: Lesli Arevalo on 01-17-2025 Erythrocyte distribution width (RBC) [Ratio] 14.3 % 11.0-15.0 [facility] Estimated glomerular filtrat ion rate (GFR) non- AmericanOrdered By: Lesli Arevalo on 01-17-2025 GFR/1.73 sq M.predicted among non-blacks MDRD (S/P/Bld) [Vol rate/Area] 43 mL/min/{1.73_m2} Low >=60 mL/min/1.73 m 2 [facility] Hematocrit Auto (Bld) [Volum e fraction]Ordered By: Lesli Arevalo on 01-17-2025 Hematocrit (Bld) [Volume fraction] 39.4 % 36.0-48.0 [facility] Hemoglobin [Mass/volume] in BloodOrdered By: Lesli Arevalo on 01-17-2025 Hemoglobin (Bld) [Mass/Vol] 12.7 g/dL 12.0-16.0 [facility] Laboratory - Chemistry and C hemistry - challengeOrdered By: Lesli Arevalo on 01-17-2025 Albumin [Mass/Vol] 3.5 g/dL 3.4-5.0 [facility] Calcium [Mass/Vol] 9.0 mg/dL 8.5-10.1 [facility] Chloride [Moles/Vol] 109 mmol/L High 98-107 [facility] CO2 [Moles/Vol] 29.7 mmol/L 21.0-32.0 [facility] Creatinine [Mass/Vol] 1.20 mg/dL High 0.55-1.02 [facility] GFR/1.73 sq M.predicted MDRD (S/P/Bld) [Vol rate/Area] 52 mL/min/{1.73_m2} Low >=60 mL/min/1.73 m 2 [facility] Glucose [Mass/Vol] 99 mg/dL 74-106 [facility] Magnesium [Mass/Vol] 1.5 mg/dL Low 1.8-2.4 [facility] Potassium [Moles/Vol] 4.9 mmol/L 3.5-5.1 [facility] Sodium [Moles/Vol] 146 mmol/L High 136-145 [facility] Urate [Mass/Vol] 6.2 mg/dL High 2.6-6.0 [facility] Urea nitrogen [Mass/Vol] 35.0 mg/dL High 7.0-18.0 [facility] Urea nitrogen/Creatinine [Mass ratio] 29.2 mg/mg [facility] Bilirubin Ql (U) Negative NEGATIVE [facility] Glucose (U) [Mass/Vol] Negative NEGATIVE [facility] Ketones Ql (U) Negative NEGATIVE [facility] pH (U) 6.0 [pH] 5.0-9.0 [facility] Specific gravity (U) [Rel density] 1.025 1.005-1.025 [facility] Urobilinogen Qn (U) 0.2 {Jose'U}/dL 0.2-1.0 [facility] Laboratory - Specimen inform ationOrdered By: Lesli Arevalo on 01-17-2025 Appearance (U) CLEAR CLEAR [facility] Color (U) DK. YELLOW YELLOW [facility] Laboratory - UrinalysisOrder ed By: Lesli Arevalo on 01-17-2025 Leukocyte esterase Test strip Ql (U) Negative NEGATIVE [facility] Mucus Ql (Urine sed) TRACE Abnormal NONE SEEN [facility] Nitrite Ql (U) Negative NEGATIVE [facility] Protein (U) [Mass/Vol] 41.4 mg/dL High <=11.9 [facility] Protein Ql (U) TRACE mg/dL NEG/TRACE [facility] Leukocytes [#/volume] correc andreina for nucleated erythrocytes in Blood by Automated counOrdered By: Lesli Arevalo on 01-17-2025 WBC corrected for nucl RBC Auto (Bld) [#/Vol] 18.8 10 3/uL High 4.0-11.0 [facility] MCH Auto (RBC) [Entitic mass ]Ordered By: Lesli Arevalo on 01-17-2025 MCH (RBC) [Entitic mass] 30.2 pg 26.7-34.0 [facility] MCHC Auto (RBC) [Mass/Vol]Or dered By: Lesli Arevalo on 01-17-2025 MCHC (RBC) [Mass/Vol] 32.2 g/dL 29.9-35.2 [facility] MCV Auto (RBC) [Entitic vol] Ordered By: Lesli Arevalo on 01-17-2025 MCV (RBC) [Entitic vol] 93.6 fL 81.0-99.0 [facility] No Panel InformationOrdered By: Lesli Arevalo on 01-17-2025 25-Hydroxy Vitamin D Total 61.8 ng/mL [facility] Comment on above: <20 ng/mL Vit D defi cient20-<30 ng/mL Vit D [id number] ng/mL Vit D sufficient>100 ng/mL Potential Toxicity Parathyroid Hormone (Intact) 42 pg/mL 15-65 [facility] Comment on above: Performed at: [address] [id number] Director: Narinder Elam PhD, Phone: [phone] Phosphorus Level 4.1 mg/dL 2.6-4.7 [facility] Urine Bacteria SMALL #/HPF Abnormal NONE SEEN [facility] Urine Occult Blood Negative NEGATIVE [facility] Urine Other Casts NONE SEEN #/LPF NONE SEEN [facility] Urine Other Crystals None Seen #/HPF None Seen [facility] Urine Random Creatinine 119.94 mg/dL 20.0 0-300.0 0 [facility] Urine RBC 0-2 #/HPF 0-2 [facility] Urine Squamous Epithelial Cells RARE #/LPF NONE/RARE [facility] Urine WBC 0-2 #/HPF Abnormal NONE SEEN [facility] Platelet mean volume Auto (B ld) [Entitic vol]Ordered By: Lesli Arevalo on 01-17-2025 Platelet mean volume (Bld) [Entitic vol] 11.4 fL 9.5-13.5 [facility] Platelets Auto (Bld) [#/Vol] Ordered By: Lesli Mickey on 01-17-2025 Platelets (Bld) [#/Vol] 217 10 3/uL 150-450 [facility] RBC Auto (Bld) [#/Vol]Ordere d By: Lesli Nelsondir on 01-17-2025 RBC (Bld) [#/Vol] 4.21 10 6/uL 4.20-5.40 [facility] Serum or plasma anion gap de terminationOrdered By: Lesli Arevalo on 01-17-2025 Anion gap [Moles/Vol] 12.2 mmol/L [facility] Urine protein/creatinine rat ioOrdered By: Lesli Arevalo on 01-17-2025 Protein/Creatinine (U) [Ratio] 0.35 [facility] CNOVon 12-17-2024 CNOV Office Visit (RHEUAV ) KATHY WASHBURN ([id number]) 1940 F Date Time Provider Department 12/17/24 10:20 AM ZOHAIB GERMAN During your visit today, we recorded the following information about you: Temperature Blood pressure Weight Height 65 degrees 112/71 103.6 kg 1.727 m Zohaib German MD 12/17/2024 10:49 AM Signed [facility] Date of Service: 12/17/2024 Patient: Kathy Washburn Medical Record: [id number] Primary Care Physician: Ayanna Vicente DO Last Rheumatology visit: 05/17/2024 (with Zohaib German) History of Present Illness Kathy Washburn is [...] status and 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 There have not been any new health [...] Hypothyroidism Inflammatory bowel diseases (IBD) Leukocytosis Mixed hyp (more content not included)... Normal [facility] Prakash 11-17-2024 [facility] Telephone (NCCAP) KATHY WASHBURN ([id number]) 1940 F Date Time Provider Department 11/17/24 [...] to be following with Dr Silva @ [facility] as this is closer to home for patient. Roxie requested to talk to medical records regarding having records sent to Dr Silva transferred call To Heather Todd. Lori Nicolás Todd [facility], Susan Car 11/17/2024 2:36 PM Signed Records faxed to Dr. Silva [phone]. I called Roxie to let her know [...] Status:Closed by LORI RENNER on 11/17/24 Normal [facility] Acanthocytes [Presence] in B lood by Light microscopyon 11-01-2024 Acanthocytes LM Ql (Bld) Acanthocytes [Presence] in Blood by Light microscopy [facility] Acanthocytes LM Ql (Bld) 1+ [facility] Basophils/100 WBC Manual cnt (Bld)on 11-01-2024 Basophils/100 WBC (Bld) Basophils/100 leukocytes in Blood by Manual count 0.2-2.0 [facility] Basophils/100 WBC (Bld) 2.0 % 0.2-2.0 F [facility] Cholesterol in LDL Calc [Mas s/Vol]on 11-01-2024 Cholesterol in LDL [Mass/Vol] Cholesterol in LDL [Mass/volume] in Serum or Plasma by calculation [facility] Comment on above: <100 mg/dl [id number] 0-129 mg/dl NEAR OR ABOVE [id number] mg/dl BORDERLINE [id number] mg/dl HIGH>190 mg/dl VERY HIGH Cholesterol in LDL [Mass/Vol] 29.2 mg/dL [facility] Comment on above: <100 mg/dl [id number] 0-129 mg/dl NEAR OR ABOVE [id number] mg/dl BORDERLINE [id number] mg/dl HIGH>190 mg/dl VERY HIGH Cholesterol in VLDL Calc [Ma ss/Vol]on 11-01-2024 Cholesterol in VLDL [Mass/Vol] Cholesterol in VLDL [Mass/volume] in Serum or Plasma by calculation [facility] Cholesterol in VLDL [Mass/Vol] 22.8 mg/dL [facility] Eosinophils/100 WBC Manual c nt (Bld)on 11-01-2024 Eosinophils/100 WBC (Bld) Eosinophils/100 leukocytes in Blood by Manual count 0.9-7.0 [facility] Eosinophils/100 WBC (Bld) 1.0 % 0.9-7.0 [facility] Erythrocyte distribution wid th Auto (RBC) [Ratio]on 11-01-2024 Erythrocyte distribution width (RBC) [Ratio] 14.6 % 11.0-15.0 [facility] Estimated glomerular filtrat ion rate (GFR) non- Americanon 11-01-2024 GFR/1.73 sq M.predicted among non-blacks MDRD (S/P/Bld) [Vol rate/Area] Estimated glomerular filtration rate (GFR) non- Low >=60 mL/min/1.73 m 2 [facility] GFR/1.73 sq M.predicted among non-blacks MDRD (S/P/Bld) [Vol rate/Area] 36 mL/min/{1.73_m2} Low >=60 mL/min/1.73 m 2 [facility] Globulin Calc (S) [Mass/Vol] on 11-01-2024 Globulin (S) [Mass/Vol] Serum globulin measurement by calculation (mass/volume) [facility] Globulin (S) [Mass/Vol] 3.4 g/dL F [facility] Glucose mean value [Mass/vol ume] in Blood Estimated from glycated hemoglobinon 11-01-2024 Average glucose Estimated from glycated hemoglobin (Bld) [Mass/Vol] Glucose mean value [Mass/volume] in Blood Estimated from glycated hemoglobin [facility] Average glucose Estimated from glycated hemoglobin (Bld) [Mass/Vol] 154 mg/dL [facility] Hematocrit Auto (Bld) [Volum e fraction]on 11-01-2024 Hematocrit (Bld) [Volume fraction] 41.5 % 36.0-48.0 [facility] Hemoglobin A1c percentageon 11-01-2024 HbA1c (Bld) [Mass fraction] Hemoglobin A1c percentage High 4.5-6.2 [facility] Comment on above: ADA RECOMMENDED LIMI T 4.0 - 6.0ADA THERAPEUTIC TARGET < 7.0ACTION SUGGESTED> 7.0 HbA1c (Bld) [Mass fraction] 7.0 % High 4.5-6.2 [facility] Comment on above: ADA RECOMMENDED LIMI T 4.0 - 6.0ADA THERAPEUTIC TARGET < 7.0ACTION SUGGESTED> 7.0 Hemoglobin [Mass/volume] in Bloodon 11-01-2024 Hemoglobin (Bld) [Mass/Vol] 13.2 g/dL 12.0-16.0 [facility] Laboratory - Chemistry and C hemistry - challengeon 11-01-2024 Albumin [Mass/Vol] 3.3 g/dL Low 3.4-5.0 [facility] ALP [Catalytic activity/Vol] 89 U/L 46-116 [facility] ALT [Catalytic activity/Vol] 43 U/L 14-59 [facility] AST [Catalytic activity/Vol] 26 U/L 15-37 [facility] Bilirubin [Mass/Vol] 0.3 mg/dL 0.2-1.0 [facility] Calcium [Mass/Vol] 9.0 mg/dL 8.5-10.1 [facility] Chloride [Moles/Vol] 109 mmol/L High 98-107 [facility] Cholesterol [Mass/Vol] 111 mg/dL <=200 [facility] Cholesterol in HDL [Mass/Vol] 59 mg/dL 40-60 [facility] Comment on above: > or =60 mg/dl - LOW CARDIOVASCULAR RISK<40 mg/dl - HIGH CARDIOVASCULAR RISK CO2 [Moles/Vol] 29.4 mmol/L 21.0-32.0 [facility] Creatinine [Mass/Vol] 1.39 mg/dL High 0.55-1.02 [facility] Free T4 [Mass/Vol] 1.14 ng/dL 0.76-1.46 [facility] GFR/1.73 sq M.predicted MDRD (S/P/Bld) [Vol rate/Area] 44 mL/min/{1.73_m2} Low >=60 mL/min/1.73 m 2 [facility] Glucose [Mass/Vol] 88 mg/dL 74-106 [facility] Potassium [Moles/Vol] 5.4 mmol/L High 3.5-5.1 [facility] Protein [Mass/Vol] 6.7 g/dL 6.4-8.2 [facility] Sodium [Moles/Vol] 143 mmol/L 136-145 [facility] Triglyceride [Mass/Vol] 114 mg/dL <=150 F [facility] TSH Qn 0.958 m[IU]/L 0.358-3.740 [facility] Urea nitrogen [Mass/Vol] 44.0 mg/dL High 7.0-18.0 [facility] Urea nitrogen/Creatinine [Mass ratio] 31.7 mg/mg [facility] Laboratory - Hematology and Cell countson 11-01-2024 Band form neutrophils/100 WBC (Bld) 1.0 % 0-5 [facility] Lymphocytes/100 WBC (Bld) 66.0 % High 20.5-60.0 [facility] Monocytes/100 WBC (Bld) 7.0 % 1.7-12.0 F [facility] Leukocytes [#/volume] correc andreina for nucleated erythrocytes in Blood by Automated counon 11-01-2024 WBC corrected for nucl RBC Auto (Bld) [#/Vol] 21.6 10 3/uL High 4.0-11.0 [facility] MCH Auto (RBC) [Entitic mass ]on 11-01-2024 MCH (RBC) [Entitic mass] 30.2 pg 26.7-34.0 [facility] MCHC Auto (RBC) [Mass/Vol]on 11-01-2024 MCHC (RBC) [Mass/Vol] 31.8 g/dL 29.9-35.2 [facility] MCV Auto (RBC) [Entitic vol] on 11-01-2024 MCV (RBC) [Entitic vol] 95.0 fL 81.0-99.0 F [facility] Microalbumin [Mass/volume] i n Urineon 11-01-2024 Albumin DL <= 20 mg/L (U) [Mass/Vol] Microalbumin [Mass/volume] in Urine <=30.0 [facility] Albumin DL <= 20 mg/L (U) [Mass/Vol] 1.3 mg/dL <=30.0 [facility] No Panel Informationon 11-01 Absolute Basophils (Manual) 0.43 10 3/uL High 0.00-0.10 [facility] Band Neutrophils # (Manual) 0.2 10 3/uL 0.0-0.3 [facility] Eosinophils # (Manual) 0.21 10 3/uL 0.00-0.70 [facility] Free Triiodothyronine 1.62 pg/mL Low 2.18-3.98 [facility] Lymphocytes # (Manual) 14.25 10 3/uL High 1.20-3.80 [facility] Monocytes # (Manual) 1.51 10 3/uL High 0.30-0.80 [facility] Segmented Neutrophils # (Manual) 4.96 10 3/uL 1.4-6.5 [facility] Urine Random Creatinine 93.71 mg/dL 20.0 0-300.0 0 [facility] Ovalocyte detectionon 2024 Ovalocytes LM Ql (Bld) Ovalocyte detection [facility] Ovalocytes LM Ql (Bld) 1+ [facility] Platelet mean volume Auto (B ld) [Entitic vol]on 11-01-2024 Platelet mean volume (Bld) [Entitic vol] 11.0 fL 9.5-13.5 [facility] Platelets Auto (Bld) [#/Vol] on 11-01-2024 Platelets (Bld) [#/Vol] 239 10 3/uL 150-450 [facility] Poikilocytosis [Presence] in Blood by Light microscopyon 11-01-2024 Poikilocytosis LM Ql (Bld) Poikilocytosis [Presence] in Blood by Light microscopy [facility] Poikilocytosis LM Ql (Bld) 1+ [facility] RBC Auto (Bld) [#/Vol]on RBC (Bld) [#/Vol] 4.37 10 6/uL 4.20-5.40 [facility] Segmented neutrophils/100 WB C Manual cnt (Bld)on 11-01-2024 Segmented neutrophils/100 WBC (Bld) Manual blood segmented neutrophils/100 leukocytes Low 43.0-75.0 [facility] Segmented neutrophils/100 WBC (Bld) 23.0 % Low 43.0-75.0 [facility] Serum or plasma albumin/glob ulin mass ratioon 11-01-2024 Albumin/Globulin [Mass ratio] Serum or plasma albumin/globulin mass ratio [facility] Albumin/Globulin [Mass ratio] 1.0 {ratio} [facility] Serum or plasma anion gap de terminationon 11-01-2024 Anion gap [Moles/Vol] Serum or plasma an ion gap determination [facility] Anion gap [Moles/Vol] 10.0 mmol/L [facility] Serum or plasma total choles terol/high density lipoprotein (HDL) cholesterol mass faustino 11-01-2024 Cholesterol.total/Choles terol in HDL [Mass ratio] Serum or plasma total cholesterol/high density lipoprotein (HDL) cholesterol mass rat [facility] Comment on above: 3.3 - 4.4 LOW RISK4. 4 - 7.1 AVERAGE RISK7.1 - 11.0 MODERATE RISK>11.0 HIGH RISK Cholesterol.total/Choles terol in HDL [Mass ratio] 1.9 {ratio} [facility] Comment on above: 3.3 - 4.4 LOW RISK4. 4 - 7.1 AVERAGE RISK7.1 - 11.0 MODERATE RISK>11.0 HIGH RISK Urine microalbumin/creatinin e mass ratioon 11-01-2024 Albumin/Creatinine DL <= 20 mg/L (U) [Mass ratio] Urine microalbumin/creatini ne mass ratio 0.0-29.9 [facility] Comment on above: NO MICROALBUMINURIA 0-29 MG/GCLINICAL MICROALBUMINURIA 30-300 MG/GMACROALBUMINURIA >300 MG/G Albumin/Creatinine DL <= 20 mg/L (U) [Mass ratio] 13.8 mg/g 0.0-29.9 [facility] Comment on above: NO MICROALBUMINURIA 0-29 MG/GCLINICAL MICROALBUMINURIA 30-300 MG/GMACROALBUMINURIA >300 MG/G Reminderson 09-15-2024 Reminders Reminders From: Lori Bledsoe To: EU - Administrative; Sent: 02/24/2024 10:44:10 EDT Show up: 06/25/2024 09:43:00 EST Subject: 6 MO F/U Due Date/Time: 08/26/2024 09:43:00 EST Reminder/Recall PT SEEN ON 02/24/2024 BY JINNY IN [facility]. PT WILL NEED A 6 MO F/U. APPT DUE BY 08/26/2024 NO ANSWER Pt is scheduled for 02/14/25. Normal [facility] Laboratory - Chemistry and C hemistry - challengeon 09-03-2024 Bilirubin Ql (U) Negative NEGATIVE [facility] Glucose (U) [Mass/Vol] Negative NEGATIVE [facility] Ketones Ql (U) TRACE mg/dL Abnormal NEGATIVE [facility] pH (U) 5.5 [pH] 5.0-9.0 [facility] Specific gravity (U) [Rel density] 1.025 1.005-1.025 [facility] Urobilinogen Qn (U) 0.2 {Jose'U}/dL 0.2-1.0 [facility] Laboratory - Specimen inform ationon 09-03-2024 Appearance (U) CLEAR CLEAR [facility] Color (U) LT YELLOW YELLOW [facility] Laboratory - Urinalysison Leukocyte esterase Test strip Ql (U) Negative NEGATIVE [facility] Nitrite Ql (U) Negative NEGATIVE [facility] Protein Ql (U) TRACE mg/dL NEG/TRACE [facility] No Panel Informationon 09-03 Urine Occult Blood Negative NEGATIVE [facility] Urine Cultureon 09-03-2024 Bacteria identified Cx Nom (U) 75,000 colonies/ml mixed bacterial skin contaminants 2 Days PERFORMED BY: [place] [address] PATHOLOGIST PRICE LISTER IDA ARMIJO M.D. Normal [facility] Comment on above: Performed By: #### C UU #### [address] Ambulatory Visit Summaryon 0 08-16-2024 Ambulatory Visit [...] SUSAN RANDOLPH PA-C Where: [facility] [address] [place] [address] [place] [address]- You Need to Schedule the Following Appointments Follow Up with SUSAN RANDOLPH PA-C, URL When: In 6 months Where: [address] [place] [address] Medications What How Much When Instructions New estradiol topical (Estrace 0.1 mg/ g Cream) See instructions Refills: 6 apply a pea-sized amount vaginally and around the urethra 3x per week for UTI prevention Pickup at [facility] [address] Unchanged acetaminophen-oxycodo ne (acetaminophen-oxycod one 325 [...] Discount D (more content not included)... Normal [facility] Urology Office/Clinic Noteon 08-16-2024 Urology Office/Clinic Note [...] will consider cystoscopy w possible UD. Ordered: [id number] Measure Post Void residual urine and/or bladder capacity by US- non-imaging Complex E&M Add on G2211 E&M of Est. Patient Moderate 30-39 Min 50882 Urnls Dip Stick Auto w/o Microscopy POC 66987 2. Urgency incontinence (N39.41: Urge incontinence) S/p Botox 100u 08/30/21. [place] sxs only improved for a few weeks [...] E&M of Est. Patient Moderate 30-39 Min 81856 Orders: estradiol topical, See Instructions, 42.5 gm, Refill(s) 6, apply a pea-sized amount vaginally and around the urethra 3x per week for UTI prevention, [facility] [address], 178, cm, 08/16/24 9:10:00 EST, Height/Length Dosing, 103, kg, 08/16/24 9:10:00 EST, Weight Do... Follow-up With When Contact Information SUSAN RANDOLPH PA-C, URL In 6 months [address] [address] Additional Instructions: Patient Education Antibiotic [...] ne 325 (more content not included)... Normal [facility] Comment on above: Result Comment: Elec tronically Signed By: SUSAN RANDOLPH PA-C\.br\Date and Time Signed: 08/16/24 10:05 EST Appearance of UrineOrdered B y: Ayanna Vicente on 08-10-2024 Appearance (U) Urine appearance Abnormal Clear [facility] Bacteria [Presence] in Urine by AutomatedOrdered By: Ayanna Vicente on 08-10-2024 Bacteria Auto Ql (U) Bacteria [Presence] in Urine by Automated None Seen [facility] Bilirubin Test strip Ql (U)O rdered By: Ayanna Vicente on 08-10-2024 Bilirubin Ql (U) Bilirubin.total [Presence] in Urine by Test strip Negative [facility] Color Auto (U)Ordered By: Vasile Vicente on 08-10-2024 Color (U) Color of Urine by Auto Abnormal Yellow [facility] Dipstick and Microscopicon 0 08-10-2024 Appearance (U) Cloudy Critically abnormal Clear [facility] Comment on above: Order Comment: Name Collection Type:: Clean-Voided Midstream Performed By: #### A DDONUAPLUS, CUU #### [place] [address] [place] Bacteria,Urine None Seen Normal None Seen [facility] Comment on above: Order Comment: Name Collection Type:: Clean-Voided Midstream Performed By: #### A DDONUAPLUS, CUU #### [address] Bilirubin,Urine Negative Normal Negative [facility] Comment on above: Order Comment: Name Collection Type:: Clean-Voided Midstream Performed By: #### A DDONUAPLUS, CUU #### [address] Color (U) Dark-Yellow Critically abnormal Yellow [facility] Comment on above: Order Comment: Name Collection Type:: Clean-Voided Midstream Performed By: #### A DDONUAPLUS, CUU #### [address] Glucose Ql (U) Normal Normal Normal [facility] Comment on above: Order Comment: Name Collection Type:: Clean-Voided Midstream Performed By: #### A DDONUAPLUS, CUU #### [place] [address] [place] Hyaline Casts,Urine 0 [LPF] Normal 0-8 [facility] Comment on above: Order Comment: Name Collection Type:: Clean-Voided Midstream Performed By: #### A DDONUAPLUS, CUU #### [address] Ketones Ql (U) Negative Normal Negative [facility] Comment on above: Order Comment: Name Collection Type:: Clean-Voided Midstream Performed By: #### A DDONUAPLUS, CUU #### [address] Leukocyte esterase Test strip Ql (U) 4+ High Negative [facility] Comment on above: Order Comment: Name Collection Type:: Clean-Voided Midstream Performed By: #### A DDONUAPLUS, CUU #### [address] Mucus,Urine Rare Normal [facility] Comment on above: Order Comment: Name Collection Type:: Clean-Voided Midstream Result Comment: PERF ORMED BY: [place] [address] PATHOLOGIST PRICE LISTER IDA ARMIJO M.D. Performed By: #### A DDONUAPLUS, CUU #### [address] Nitrite,Urine Positive High Negative [facility] Comment on above: Order Comment: Name Collection Type:: Clean-Voided Midstream Performed By: #### A DDONUAPLUS, CUU #### [address] Occult Blood,Urine Negative Normal Negative [facility] Comment on above: Order Comment: Name Collection Type:: Clean-Voided Midstream Result Comment: PERF ORMED BY: [place] [address] PATHOLOGIST PRICE LISTER IDA ARMIJO M.D. Performed By: #### A DDONUAPLUS, CUU #### [address] pH (U) 6.0 [pH] Normal 5.0-9.0 [facility] Comment on above: Order Comment: Name Collection Type:: Clean-Voided Midstream Performed By: #### A DDONUAPLUS, CUU #### [address] Protein (U) [Mass/Vol] 30 mg/dL High Negative [facility] e [facility] Comment on above: Order Comment: Name Collection Type:: Clean-Voided Midstream Performed By: #### A DDONUAPLUS, CUU #### [address] RBC,Urine 1 [HPF] Normal 0-4 [facility] Comment on above: Order Comment: Name Collection Type:: Clean-Voided Midstream Performed By: #### A DDONUAPLUS, CUU #### [address] Specificy Keyes,Urine 1.022 Normal 1.001-1.030 [facility] Comment on above: Order Comment: Name Collection Type:: Clean-Voided Midstream Performed By: #### A DDONUAPLUS, CUU #### [address] Squamous Epithelial Cell,Urine 1 [HPF] Normal 0-2 [facility] Comment on above: Order Comment: Name Collection Type:: Clean-Voided Midstream Performed By: #### A DDONUAPLUS, CUU #### [address] Urobilinogen,Urine Normal Normal Normal [facility] Comment on above: Order Comment: Name Collection Type:: Clean-Voided Midstream Performed By: #### A DDONUAPLUS, CUU #### [address] WBC CLUMP, Urine Many High None Seen [facility] Comment on above: Order Comment: Name Collection Type:: Clean-Voided Midstream Performed By: #### A DDONUAPLUS, CUU #### [address] WBC,Urine Innumerable High 0-4 [facility] Comment on above: Order Comment: Name Collection Type:: Clean-Voided Midstream Performed By: #### A DDONUAPLUS, CUU #### [address] Epithelial cells.squamous [# /area] in Urine sediment by Automated countOrdered By: Ayanna Vicente on 08-10-2024 Epithelial cells.squamous Auto (Urine sed) [#/Area] Epithelial cells.squamous [#/area] in Urine sediment by Automated count 0-2 [facility] Erythrocytes [#/area] in Uri ne sediment by Automated countOrdered By: Ayanna Vicente on 08-10-2024 RBC Auto (Urine sed) [#/Area] Erythrocytes [#/area] in Urine sediment by Automated count 0-4 [facility] Glucose [Mass/volume] in Uri ne by Test stripOrdered By: Ayanna Vicente on 08-10-2024 Glucose Test strip (U) [Mass/Vol] Glucose [Mass/volume] in Urine by Test strip Normal [facility] Hemoglobin Test strip Ql (U) Ordered By: Ayanna Vicente on 08-10-2024 Hemoglobin Ql (U) Hemoglobin [Presence ] in Urine by Test strip Negative [facility] Hyaline casts [#/area] in Ur ine sediment by Automated countOrdered By: Ayanna Vicente on 08-10-2024 Hyaline casts Auto (Urine sed) [#/Area] Hyaline casts [#/area] in Urine sediment by Automated count 0-8 [facility] Ketones Test strip Ql (U)Ord ered By: Ayanna Vicente on 08-10-2024 Ketones Ql (U) Ketones [Presence] i n Urine by Test strip Negative [facility] Leukocyte clumps [Presence] in Urine by AutomatedOrdered By: Ayanna Vicente on 08-10-2024 Leukocyte clumps Auto Ql (U) Leukocyte clumps [Presence] in Urine by Automated High None Seen [facility] Leukocyte esterase [Presence ] in Urine by Test stripOrdered By: Ayanna Vicente on 08-10-2024 Leukocyte esterase Test strip Ql (U) Leukocyte esterase [Presence] in Urine by Test strip High Negative [facility] Leukocytes [#/area] in Urine sediment by Automated countOrdered By: Ayanna Vicente on 08-10-2024 WBC Auto (Urine sed) [#/Area] Leukocytes [#/area] in Urine sediment by Automated count High 0-4 [facility] Mucus [Presence] in Urine by AutomatedOrdered By: Ayanna Vicente on 08-10-2024 Mucus Auto Ql (U) Mucus [Presence] in Urine by Automated [facility] Nitrite Test strip Ql (U)Ord ered By: Ayanna Vicente on 08-10-2024 Nitrite Ql (U) Nitrite [Presence] i n Urine by Test strip High Negative [facility] Protein Test strip (U) [Mass /Vol]Ordered By: Ayanna Vicente on 08-10-2024 Protein (U) [Mass/Vol] Protein [Mass/vol ume] in Urine by Test strip High Negative [facility] Specific gravity Test strip (U) [Rel density]Ordered By: Ayanna Vicente on 08-10-2024 Specific gravity (U) [Rel density] Specific gravity of Urine by Test strip 1.001-1.030 [facility] Urine Cultureon 08-10-2024 Bacteria identified Cx Nom (U) ORGANISM: Escherichia coli (O:ESCCOL) Francis Count >100,000 Aerobic CORNELIA Charge (NMIC56) ---- [...] RESISTANT TO ALL B-LACTAM DRUGS. PERFORMED BY: [facility] [address] [place] [address] PATHOLOGIST PRICE LISTER IDA ARMIJO M.D. Normal [facility] Comment on above: Performed By: #### A PERNELL JOINER #### [facility] [address] Urine cultureOrdered By: Aftab Vicente on 08-10-2024 Bacteria identified Cx Nom (U) Escherichia coli Abnormal [facility] Urobilinogen Test strip (U) [Mass/Vol]Ordered By: Ayanna Vicente on 08-10-2024 Urobilinogen (U) [Mass/Vol] Urobilinogen [Mass/volume] in Urine by Test strip Normal [facility] pH Test strip (U)Ordered By: Ayanna Vicente on 08-10-2024 pH (U) pH of Urine by Test strip 5.0-9.0 [facility] ALL THYROID STIM HORMONEon 1 08-23-2023 TSH Qn 2.632 m[IU]/L [facility] Estimated glomerular filtrat ion rate (GFR) non- Americanon 06-22-2024 GFR/1.73 sq M.predicted among non-blacks MDRD (S/P/Bld) [Vol rate/Area] Estimated glomerular filtration rate (GFR) non- Low >=60 mL/min/1.73 m 2 [facility] Laboratory - Chemistry and C hemistry - challengeon 06-22-2024 Calcium [Mass/Vol] 9.2 mg/dL 8.5-10.1 [facility] Chloride [Moles/Vol] 105 mmol/L 98-107 [facility] CO2 [Moles/Vol] 30.0 mmol/L 21.0-32.0 [facility] Cobalamin (Vitamin B12) [Mass/Vol] 721 pg/mL 232-1245 [facility] Comment on above: Performed at: - [address] [id number] Director: Narinder Elam PhD, Phone: [phone] Creatinine [Mass/Vol] 1.36 mg/dL High 0.55-1.02 [facility] GFR/1.73 sq M.predicted MDRD (S/P/Bld) [Vol rate/Area] 45 mL/min/{1.73_m2} Low >=60 mL/min/1.73 m 2 [facility] Glucose [Mass/Vol] 125 mg/dL High 74-106 [facility] Potassium [Moles/Vol] 4.8 mmol/L 3.5-5.1 [facility] Sodium [Moles/Vol] 141 mmol/L 136-145 [facility] TSH Qn 2.632 m[IU]/L 0.358-3.740 [facility] Urea nitrogen [Mass/Vol] 28.0 mg/dL High 7.0-18.0 [facility] Urea nitrogen/Creatinine [Mass ratio] 20.6 mg/mg [facility] Serum or plasma anion gap de terminationon 06-22-2024 Anion gap [Moles/Vol] Serum or plasma an ion gap determination [facility] Basophils/100 WBC Manual cnt (Bld)on 06-15-2024 Basophils/100 WBC (Bld) Basophils/100 leukocytes in Blood by Manual count 0.2-2.0 [facility] Eosinophils/100 WBC Manual c nt (Bld)on 06-15-2024 Eosinophils/100 WBC (Bld) Eosinophils/100 leukocytes in Blood by Manual count 0.9-7.0 [facility] Erythrocyte distribution wid th Auto (RBC) [Ratio]on 06-15-2024 Erythrocyte distribution width (RBC) [Ratio] Erythrocyte distribution width [Ratio] by Automated count 11.0-15.0 [facility] Estimated glomerular filtrat ion rate (GFR) non- Americanon 06-15-2024 GFR/1.73 sq M.predicted among non-blacks MDRD (S/P/Bld) [Vol rate/Area] Estimated glomerular filtration rate (GFR) non- Low >=60 mL/min/1.73 m 2 [facility] Globulin Calc (S) [Mass/Vol] on 06-15-2024 Globulin (S) [Mass/Vol] Serum globulin measurement by calculation (mass/volume) [facility] Hematocrit Auto (Bld) [Volum e fraction]on 06-15-2024 Hematocrit (Bld) [Volume fraction] Hematocrit [Volume Fraction] of Blood by Automated count 36.0-48.0 [facility] Hemoglobin [Mass/volume] in Bloodon 06-15-2024 Hemoglobin (Bld) [Mass/Vol] Hemoglobin [Mass/volume] in Blood 12.0-16.0 [facility] Curt 06-15-2024 L - -------- Specimen: [id number] Received: 06/16/24 Status: JEFFERY More Num: [id number] Spec Type: Impression Subm Dr: Tri Ag DO Tissues: PATHPER Procedures: PATHREVIEW -------- Age/ Patient Sex Location Account Attending Physician -------- Kathy Washburn 83/F LABELL [id number] Tri Ag DO -------- SPEC NUM: [id number] RECD: 06/16/24 STATUS: JEFFERY MIXYesenia NUM: [id number] JESSICA: 06/15/24- SUBM DR: rTi Ag DO ENTERED: 06/16/[address] [facility] DR: Wilda,Lab SPEC TYPE: Impression DEPT: [facility] Lance ENTERED BY: [id number] RECV BY: [id number] ORDERED: PATHREVIEW ORDERED: PATHREVIEW Pathologist Review Peripheral blood smear evaluation: - Severe lymphocytosis with atypical lymphocytes and smudges consistent with CLL, flow cytometry if clinically indicated. - Red blood cell and Platelet: Unremarkable. CPT: 58653 Jose Angel Kc MD 06/16/24 -------- -------- Specimen: [id number] Received: 06/16/24 Status: JFEFERY Argenis Num: [id number] Spec Type: Impression Subm Dr: Tri Ag DO Tissues: PATHPER Procedures: PATHREVIEW -------- Patient: Kathy Washburn [id number] (Continued) -------- Signed (signature on file) Jose Angel Kc MD 06/16/24 1635 Normal [facility] Laboratory - Chemistry and C hemistry - challengeon 06-15-2024 Albumin [Mass/Vol] 3.5 g/dL 3.4-5.0 [facility] ALP [Catalytic activity/Vol] 103 U/L 46-116 [facility] ALT [Catalytic activity/Vol] 34 U/L 14-59 [facility] AST [Catalytic activity/Vol] 25 U/L 15-37 [facility] Bilirubin [Mass/Vol] 0.3 mg/dL 0.2-1.0 [facility] Calcium [Mass/Vol] 9.1 mg/dL 8.5-10.1 [facility] Chloride [Moles/Vol] 108 mmol/L High 98-107 [facility] CO2 [Moles/Vol] 28.4 mmol/L 21.0-32.0 [facility] Creatinine [Mass/Vol] 1.42 mg/dL High 0.55-1.02 [facility] GFR/1.73 sq M.predicted MDRD (S/P/Bld) [Vol rate/Area] 43 mL/min/{1.73_m2} Low >=60 mL/min/1.73 m 2 [facility] Glucose [Mass/Vol] 140 mg/dL High 74-106 [facility] Potassium [Moles/Vol] 4.3 mmol/L 3.5-5.1 [facility] Protein [Mass/Vol] 6.9 g/dL 6.4-8.2 [facility] Sodium [Moles/Vol] 143 mmol/L 136-145 [facility] Urea nitrogen [Mass/Vol] 31.0 mg/dL High 7.0-18.0 [facility] Urea nitrogen/Creatinine [Mass ratio] 21.8 mg/mg [facility] Laboratory - Hematology and Cell countson 06-15-2024 Lymphocytes/100 WBC (Bld) 54.0 % 20.5-60.0 [facility] Monocytes/100 WBC (Bld) 0.0 % Low 1.7-12.0 [facility] Leukocytes [#/volume] correc andreina for nucleated erythrocytes in Blood by Automated counon 06-15-2024 WBC corrected for nucl RBC Auto (Bld) [#/Vol] Leukocytes [#/volume] corrected for nucleated erythrocytes in Blood by Automated coun High 4.0-11.0 [facility] MCH Auto (RBC) [Entitic mass ]on 06-15-2024 MCH (RBC) [Entitic mass] MCH [Entitic ma ss] by Automated count 26.7-34.0 [facility] MCHC Auto (RBC) [Mass/Vol]on 06-15-2024 MCHC (RBC) [Mass/Vol] MCHC [Mass/volume] by Automated count 29.9-35.2 [facility] MCV Auto (RBC) [Entitic vol] on 06-15-2024 MCV (RBC) [Entitic vol] MCV [Entitic vol ume] by Automated count 81.0-99.0 [facility] No Panel Informationon 06-15 Absolute Basophils (Manual) 0.22 10 3/uL High 0.00-0.10 [facility] Add Manual Differential See comment [facility] Comment on above: SEE SCANNED REPORT Eosinophils # (Manual) 0.44 10 3/uL 0.00-0.70 [facility] Lymphocytes # (Manual) 11.88 10 3/uL High 1.20-3.80 [facility] Monocytes # (Manual) 0.00 10 3/uL Low 0.30-0.80 [facility] Reactive Lymphocytes 1.76 [facility] Reactive Lymphocytes 8.0 % [facility] Segmented Neutrophils # (Manual) 7.70 10 3/uL High 1.4-6.5 [facility] Platelet mean volume Auto (B ld) [Entitic vol]on 06-15-2024 Platelet mean volume (Bld) [Entitic vol] Platelet mean volume [Entitic volume] in Blood by Automated count 9.5-13.5 [facility] Platelets Auto (Bld) [#/Vol] on 06-15-2024 Platelets (Bld) [#/Vol] Platelets [#/vol ume] in Blood by Automated count 150-450 [facility] RBC Auto (Bld) [#/Vol]on RBC (Bld) [#/Vol] Erythrocytes [#/volume] in Blood by Automated count 4.20-5.40 [facility] Segmented neutrophils/100 WB C Manual cnt (Bld)on 06-15-2024 Segmented neutrophils/100 WBC (Bld) Manual blood segmented neutrophils/100 leukocytes Low 43.0-75.0 [facility] Serum or plasma albumin/glob ulin mass ratioon 06-15-2024 Albumin/Globulin [Mass ratio] Serum or plasma albumin/globulin mass ratio [facility] Serum or plasma anion gap de terminationon 06-15-2024 Anion gap [Moles/Vol] Serum or plasma an ion gap determination [facility] Smudge cell detectionon Smudge cells LM Ql (Bld) Smudge cell detection [facility] Basophils Auto (Bld) [#/Vol] on 05-26-2024 Basophils (Bld) [#/Vol] Automated basoph il count <0.11 [facility] Basophils/100 WBC Auto (Bld) on 05-26-2024 Basophils/100 WBC (Bld) Automated basophil % [facility] Blood manual differential co mment interpretation narrativeon 05-26-2024 Manual differential comment Himanshu (Bld) [Interp] Blood manual differential comment interpretation narrative [facility] CBC W Auto Differential pane l (Bld)on 05-26-2024 Basophils (Bld) [#/Vol] 0.00 10*3/uL Normal <0.11 [facility] Comment on above: Order Comment: Speci men Type: BLOOD SPECIMEN Ordering Facility: [facility] Address: [address] [place] [address] Performed By: #### 5 7021-8 #### [facility] CLIA [id number] [address] [place] [address] LAB CLIA [id number] [address] [place] [address] [place] Basophils/100 WBC (Bld) 0.0 % Normal [facility] Comment on above: Order Comment: Speci men Type: BLOOD SPECIMEN Ordering Facility: [facility] Address: [address] [place] [address] Performed By: #### 5 7021-8 #### [facility] CLIA [id number] [address] [place] [address] LAB CLIA [id number] [address] [place] [address] [place] Differential cell count method Nom (Bld) Manual Normal [facility] Comment on above: Order Comment: Speci men Type: BLOOD SPECIMEN Ordering Facility: [facility] Address: [address] [place] [address] Performed By: #### 5 7021-8 #### [facility] CLIA [id number] [address] [place] [address] LAB CLIA [id number] [address] [place] [address] [place] Eosinophils (Bld) [#/Vol] 0.19 10*3/uL Normal <0.46 [facility] Comment on above: Order Comment: Speci men Type: BLOOD SPECIMEN Ordering Facility: [facility] Address: [address] [place] [address] Performed By: #### 5 7021-8 #### [facility] CLIA [id number] [address] [place] [address] LAB CLIA [id number] [address] [place] [address] [place] Eosinophils/100 WBC (Bld) 1.0 % Normal [facility] Comment on above: Order Comment: Speci men Type: BLOOD SPECIMEN Ordering Facility: [facility] Address: [address] [place] [address] Performed By: #### 5 7021-8 #### [facility] CLIA [id number] [address] [place] [address] LAB CLIA [id number] [address] [place] [address] [place] Erythrocyte distribution width (RBC) [Ratio] 14.2 % Normal 11.5-15.0 [facility] Comment on above: Order Comment: Speci men Type: BLOOD SPECIMEN Ordering Facility: [facility] Address: [address] [place] [address] Performed By: #### 5 7021-8 #### [facility] CLIA [id number] [address] [place] [address] LAB CLIA [id number] [address] [place] [address] [place] Hematocrit (Bld) [Volume fraction] 38.4 % Normal 36.0-46.0 [facility] Comment on above: Order Comment: Speci men Type: BLOOD SPECIMEN Ordering Facility: [facility] Address: [address] [place] [address] Performed By: #### 5 7021-8 #### [facility] CLIA [id number] [address] [place] [address] LAB CLIA [id number] [address] [place] [address] [place] Hemoglobin (Bld) [Mass/Vol] 12.7 g/dL Normal 11.5-15.5 [facility] Comment on above: Order Comment: Speci men Type: BLOOD SPECIMEN Ordering Facility: [facility] Address: [address] [place] [address] Performed By: #### 5 7021-8 #### [facility] CLIA [id number] [address] [place] [address] LAB CLIA [id number] [address] [place] [address] [place] Lymphocytes (Bld) [#/Vol] 14.61 10*3/uL High 1.00-4.00 [facility] Comment on above: Order Comment: Speci men Type: BLOOD SPECIMEN Ordering Facility: [facility] Address: [address] [place] [address] Performed By: #### 5 7021-8 #### [facility] CLIA [id number] [address] [place] [address] LAB CLIA [id number] [address] [place] [address] [place] Lymphocytes/100 WBC (Bld) 76.0 % Normal [facility] Comment on above: Order Comment: Speci men Type: BLOOD SPECIMEN Ordering Facility: [facility] Address: [address] [place] [address] Performed By: #### 5 7021-8 #### [facility] CLIA [id number] [address] [place] [address] LAB CLIA [id number] [address] [place] [address] [place] MCH (RBC) [Entitic mass] 30.0 pg Normal 26.0-34.0 [facility] Comment on above: Order Comment: Speci men Type: BLOOD SPECIMEN Ordering Facility: [facility] Address: [address] [place] [address] Performed By: #### 5 7021-8 #### [facility] CLIA [id number] [address] [place] [address] LAB CLIA [id number] [address] [place] [address] [place] MCHC (RBC) [Mass/Vol] 33.1 g/dL Normal 30.5-36.0 [facility] Comment on above: Order Comment: Speci men Type: BLOOD SPECIMEN Ordering Facility: [facility] Address: [address] [place] [address] Performed By: #### 5 7021-8 #### [facility] CLIA [id number] [address] [place] [address] LAB CLIA [id number] [address] [place] [address] [place] MCV (RBC) [Entitic vol] 90.8 fL Normal 80.0-100.0 [facility] Comment on above: Order Comment: Speci men Type: BLOOD SPECIMEN Ordering Facility: [facility] Address: [address] [place] [address] Performed By: #### 5 7021-8 #### [facility] CLIA [id number] [address] [place] [address] LAB CLIA [id number] [address] [place] [address] [place] Monocytes (Bld) [#/Vol] 0.19 10*3/uL Normal <0.87 [facility] Comment on above: Order Comment: Speci men Type: BLOOD SPECIMEN Ordering Facility: [facility] Address: [address] [place] [address] Performed By: #### 5 7021-8 #### [facility] CLIA [id number] [address] [place] [address] LAB CLIA [id number] [address] [place] [address] [place] Monocytes/100 WBC (Bld) 1.0 % Normal [facility] Comment on above: Order Comment: Speci men Type: BLOOD SPECIMEN Ordering Facility: [facility] Address: [address] [place] [address] Performed By: #### 5 7021-8 #### [facility] CLIA [id number] [address] [place] [address] LAB CLIA [id number] [address] [place], [place] [address] [place] Neutrophils (Bld) [#/Vol] 4.23 10*3/uL Normal 1.45-7.50 [facility] Comment on above: Order Comment: Speci men Type: BLOOD SPECIMEN Ordering Facility: [facility] Address: [address] [place] [address] Performed By: #### 5 7021-8 #### [facility] CLIA [id number] [address] [place] [address] LAB CLIA [id number] [address] [place] [address] [place] Neutrophils/100 WBC (Bld) 22.0 % Normal [facility] Comment on above: Order Comment: Speci men Type: BLOOD SPECIMEN Ordering Facility: [facility] Address: [address] [place] [address] Performed By: #### 5 7021-8 #### [facility] CLIA [id number] [address] [place] [address] LAB CLIA [id number] [address] [place] [address] [place] Nucleated RBC (Bld) [#/Vol] 10*3/uL Normal <0.01 [facility] Comment on above: Order Comment: Speci men Type: BLOOD SPECIMEN Ordering Facility: [facility] Address: [address] [place] [address] Performed By: #### 5 7021-8 #### [facility] CLIA [id number] [address] [place] [address] LAB CLIA [id number] [address] [place] [address] [place] Nucleated RBC/100 WBC (Bld) [Ratio] 0.0 /100 WBC Normal [facility] Comment on above: Order Comment: Speci men Type: BLOOD SPECIMEN Ordering Facility: [facility] Address: [address] [place] [address] Performed By: #### 5 7021-8 #### [facility] CLIA [id number] [address] [place] [address] LAB CLIA [id number] [address] [place] [address] [place] Ovalocytes LM Ql (Bld) Few Normal [facility] Comment on above: Order Comment: Speci men Type: BLOOD SPECIMEN Ordering Facility: [facility] Address: [address] [place] [address] Performed By: #### 5 7021-8 #### [facility] CLIA [id number] [address] [place] [address] LAB CLIA [id number] [address] [place] [address] [place] Platelet mean volume (Bld) [Entitic vol] 10.4 fL Normal 9.0-12.7 [facility] Comment on above: Order Comment: Speci men Type: BLOOD SPECIMEN Ordering Facility: [facility] Address: [address] [place] [address] Performed By: #### 5 7021-8 #### [facility] CLIA [id number] [address] [place] [address] LAB CLIA [id number] [address] [place] [address] [place] Platelets (Bld) [#/Vol] 244 10*3/uL Normal 150-400 [facility] Comment on above: Order Comment: Speci men Type: BLOOD SPECIMEN Ordering Facility: [facility] Address: [address] [place], [place] [address] Performed By: #### 5 7021-8 #### [facility] CLIA [id number] [address] [place] [address] LAB CLIA [id number] [address] [place] [address] [place] Platelets Estimate (Bld) [#/Vol] Adequate Normal [facility] Comment on above: Order Comment: Speci men Type: BLOOD SPECIMEN Ordering Facility: [facility] Address: [address] [place] [address] Performed By: #### 5 7021-8 #### [facility] CLIA [id number] [address] [place] [address] LAB CLIA [id number] [address] [place] [address] [place] Polychromasia LM Ql (Bld) Slight Normal [facility] Comment on above: Order Comment: Speci men Type: BLOOD SPECIMEN Ordering Facility: [facility] Address: [address] [place] [address] Performed By: #### 5 7021-8 #### [facility] CLIA [id number] [address] [place] [address] LAB CLIA [id number] [address] [place] [address] [place] RBC (Bld) [#/Vol] 4.23 10*6/uL Normal 3.90-5.20 [facility] Comment on above: Order Comment: Speci men Type: BLOOD SPECIMEN Ordering Facility: [facility] Address: [address] [place] [address] Performed By: #### 5 7021-8 #### [facility] CLIA [id number] [address] [place] [address] LAB CLIA [id number] [address] [place] [address] [place] RED CELL MORPH Reviewed: see result s of individual morphologies Normal [facility] Comment on above: Order Comment: Speci men Type: BLOOD SPECIMEN Ordering Facility: [facility] Address: [address] [place] [address] Performed By: #### 5 7021-8 #### [facility] CLIA [id number] [address] [place] [address] LAB CLIA [id number] [address] [place] [address] [place] WBC (Bld) [#/Vol] 19.22 10*3/uL High 3.70-11.00 [facility] Comment on above: Order Comment: Speci men Type: BLOOD SPECIMEN Ordering Facility: [facility] Address: [address] [place] [address] Result Comment: No c lot detected.Results checked and verified. Performed By: #### 5 7021-8 #### [facility] CLIA [id number] [address] [place] [address] LAB CLIA [id number] [address] [place] [address] [place] CNOVSPon 05-26-2024 CNOVSP Visit (SP) Office (HE[place]AS[place]) KATHY WASHBURN ([id number]) 1940 F Date Time Provider Department 05/26/24 2:00 PM CHAD FREITAS HEMJUANY During your visit today, we recorded the following information about you: Temperature Pulse Respiration Blood pressure 97 degrees 70/minute 16/minute 92/51 Weight Height 105.3 kg 1.727 m Chad Freitas MD 05/26/2024 2:41 PM Signed PATIENT NAME: Kathy Washburn CLINIC NO.: [id number] ATTENDING PHYSICIAN: Chad Freitas MD DATE OF [...] sweats - Did mammogram last week at [facility]. - Scheduled to see [employer] PAST MEDICAL HISTORY Diagnosis Date Depression Diabetes [...] Status 05/26 (more content not included)... Normal [facility] metabolic 2000 panelOrdered By: Malak Galvez on 05-26-2024 Albumin [Mass/Vol] 4.1 g/dL 3.9 - 4.9 g/dL [facility] ALP [Catalytic activity/Vol] 107 U/L 34 - 123 U/L [facility] ALT [Catalytic activity/Vol] 21 U/L 7 - 38 U/L [facility] Anion gap [Moles/Vol] 11 mmol/L 8 - 15 mmol/L [facility] AST [Catalytic activity/Vol] 23 U/L 13 - 35 U/L [facility] Bilirubin [Mass/Vol] 0.2 mg/dL 0.2 - 1 .3 mg/dL [facility] Calcium [Mass/Vol] 9.3 mg/dL 8.5 - 10. 2 mg/dL [facility] Chloride [Moles/Vol] 105 mmol/L 98 - 10 7 mmol/L [facility] CO2 [Moles/Vol] 26 mmol/L 22 - 30 mmol/L [facility] Creatinine [Mass/Vol] 1.20 mg/dL High 0.58 - 0.96 mg/dL [facility] GFR/1.73 sq M.predicted among non-blacks MDRD (S/P/Bld) [Vol rate/Area] 46 mL/min/{1.73_m2} Low - PINF [facility] Comment on above: Estimated Glomerular Filtration [...] 231 mg/dL High 74 - 99 mg/dL [facility] Comment on above: The [place] Diabete s Association (ADA) provides guidance for [...] Standards of Medical Care in Diabetes 2016, [place] [employer]. Diabetes Care. 2016.39(Suppl 1). Interpretation and review of laboratory results Abnormal [facility] Potassium [Moles/Vol] 5.3 mmol/L High 3.7 - 5.1 mmol/L [facility] Protein [Mass/Vol] 6.9 g/dL 6.3 - 8.0 g/dL [facility] Sodium [Moles/Vol] 142 mmol/L 136 - 144 mmol/L [facility] Urea nitrogen [Mass/Vol] 36 mg/dL High 7 - 21 mg/dL [facility] Comprehensive metabolic 2000 panelon 05-26-2024 Albumin [Mass/Vol] 4.1 g/dL Normal 3.9-4.9 [facility] Comment on above: Order Comment: Ha oropeza Type: BLOOD SPECIMEN Ordering Facility: [facility] Address: [address] [place] [address] Performed By: #### 2 532-0, 28406-2 #### [facility] CLIA [id number] [address] [place] [address] ALP [Catalytic activity/Vol] 107 U/L Normal 34-123 [facility] Comment on above: Order Comment: Ha oropeza Type: BLOOD SPECIMEN Ordering Facility: [facility] Address: [address] [place] [address] Performed By: #### 2 532-0, 56272-0 #### [facility] CLIA [id number] [address] [place] [address] ALT [Catalytic activity/Vol] 21 U/L Normal 7-38 [facility] Comment on above: Order Comment: Ha oropeza Type: BLOOD SPECIMEN Ordering Facility: [facility] Address: [address] [place] [address] Performed By: #### 2 532-0, 87163-1 #### [facility] CLIA [id number] [address] [place] [address] Anion gap [Moles/Vol] 11 mmol/L Normal 8-15 [facility] Comment on above: Order Comment: Speci men Type: BLOOD SPECIMEN Ordering Facility: [facility] Address: [address] [place], [place] [address] Performed By: #### 2 532-0, 15635-3 #### [facility] CLIA [id number] [address] [place] [address] AST [Catalytic activity/Vol] 23 U/L Normal 13-35 [facility] Comment on above: Order Comment: Speci men Type: BLOOD SPECIMEN Ordering Facility: [facility] Address: [address] [place] [address] Performed By: #### 2 532-0, 16094-0 #### [facility] CLIA [id number] [address] [place] [address] Bilirubin [Mass/Vol] 0.2 mg/dL Normal 0.2-1.3 [facility] Comment on above: Order Comment: Speci men Type: BLOOD SPECIMEN Ordering Facility: [facility] Address: [address] [place] [address] Performed By: #### 2 532-0, 11433-5 #### [facility] CLIA [id number] [address] [place] [address] Calcium [Mass/Vol] 9.3 mg/dL Normal 8.5-10.2 [facility] Comment on above: Order Comment: Speci men Type: BLOOD SPECIMEN Ordering Facility: [facility] Address: [address] [place] [address] Performed By: #### 2 532-0, 89307-3 #### [facility] CLIA [id number] [address] [place] [address] Chloride [Moles/Vol] 105 mmol/L Normal 98-107 [facility] Comment on above: Order Comment: Speci men Type: BLOOD SPECIMEN Ordering Facility: [facility] Address: [address] [place], [place] [address] Performed By: #### 2 532-0, 19994-7 #### [facility] CLIA [id number] [address] [place] [address] CO2 [Moles/Vol] 26 mmol/L Normal 22-30 [facility] Comment on above: Order Comment: Speci men Type: BLOOD SPECIMEN Ordering Facility[facility] Address: [address] [place] [address] Performed By: #### 2 532-0, 33589-8 #### [facility] CLIA [id number] [address] [place] [address] Creatinine [Mass/Vol] 1.20 mg/dL High 0.58-0.96 [facility] Comment on above: Order Comment: Speci men Type: BLOOD SPECIMEN Ordering Facility: [facility] Address: [address] [place] [address] Performed By: #### 2 532-0, 37965-4 #### [facility] CLIA [id number] [address] [place] [address] Creatinine and Glomerular filtration rate.predicted panel (S/P/Bld) 46 mL/min/1.73m??? Low >=60 [facility] Comment on above: Order Comment: Speci men Type: BLOOD SPECIMEN Ordering Facility: [facility] Address: [address] [place] [address] Result Comment: Aimee mated Glomerular Filtration Rate [...] actual GFR. Performed By: #### 2 532-0, 30942-0 #### [facility] CLIA [id number] [address] [place] [address] Glucose [Mass/Vol] 231 mg/dL High 74-99 [facility] Comment on above: Order Comment: Ha oropeza Type: BLOOD SPECIMEN Ordering Facility: [facility] Address: [address] [place], [place] [address] Result Comment: The [place] Diabetes Association (ADA) provides guidance for cutoff [...] Standards of Medical Care in Diabetes 2016, [place] Diabetes Association. Diabetes Care. 2016.39(Suppl 1). Performed By: #### 2 532-0, 93863-0 #### [facility] CLIA [id number] [address] [place] [address] Potassium [Moles/Vol] 5.3 mmol/L High 3.7-5.1 [facility] Comment on above: Order Comment: Ha oropeza Type: BLOOD SPECIMEN Ordering Facility[facility] Address: [address] [place], [place] [address] Performed By: #### 2 532-0, 98489-1 #### [facility] CLIA [id number] [address] [place] [address] Protein [Mass/Vol] 6.9 g/dL Normal 6.3-8.0 [facility] Comment on above: Order Comment: Ha oropeza Type: BLOOD SPECIMEN Ordering Facility[facility] Address: [address] [place], [place] [address] Performed By: #### 2 532-0, 80112-0 #### [facility] CLIA [id number] [address] [place] [address] Sodium [Moles/Vol] 142 mmol/L Normal 136-144 [facility] Comment on above: Order Comment: Speci men Type: BLOOD SPECIMEN Ordering Facility[facility] Address: [address] [place] [address] Performed By: #### 2 532-0, 15347-6 #### [facility] CLIA [id number] [address] [place] [address] Urea nitrogen [Mass/Vol] 36 mg/dL High 7-21 [facility] Comment on above: Order Comment: Speci men Type: BLOOD SPECIMEN Ordering Facility[facility] Address: [address] [place] [id number] Performed By: #### 2 532-0, 03509-1 #### [facility] CLIA [id number] [address] [place] [address] Eosinophils/100 WBC Auto (Bl d)on 05-26-2024 Eosinophils/100 WBC (Bld) Automated eosinophil % [facility] Erythrocyte distribution wid th Auto (RBC) [Ratio]on 05-26-2024 Erythrocyte distribution width (RBC) [Ratio] Erythrocyte distribution width [Ratio] by Automated count 11.-15.0 [facility] Hematocrit Auto (Bld) [Volum e fraction]on 05-26-2024 Hematocrit (Bld) [Volume fraction] Hematocrit [Volume Fraction] of Blood by Automated count 36.0-46.0 [facility] Hemoglobin [Mass/volume] in Bloodon 05-26-2024 Hemoglobin (Bld) [Mass/Vol] Hemoglobin [Mass/volume] in Blood 11.5-15.5 [facility] LACTATE DEHYDROGENASEon 05-14 LDH [Catalytic activity/Vol] 184 U/L 135 - 214 U/L [facility] LDH SerPl-cCncon 05-26-2024 LDH [Catalytic activity/Vol] 184 U/L Normal 135-214 [facility] Comment on above: Order Comment: Speci men Type: BLOOD SPECIMEN Ordering Facility[facility] Address: [address] [place] [address] Performed By: #### 2 532-0, 48805-0 #### [facility] CLIA [id number] [address] [place] [address] LDH [Catalytic activity/Vol] on 05-26-2024 Interpretation and review of laboratory results Normal [facility] Laboratory - Chemistry and C hemistry - challengeon 05-26-2024 Albumin [Mass/Vol] 4.1 g/dL 3.9-4.9 [facility] ALP [Catalytic activity/Vol] 107 U/L 34-123 [facility] ALT [Catalytic activity/Vol] 21 U/L 7-38 [facility] AST [Catalytic activity/Vol] 23 U/L 13-35 [facility] Bilirubin [Mass/Vol] 0.2 mg/dL 0.2-1.3 [facility] Calcium [Mass/Vol] 9.3 mg/dL 8.5-10.2 [facility] Chloride [Moles/Vol] 105 mmol/L 98-107 [facility] CO2 [Moles/Vol] 26 mmol/L 22-30 [facility] Creatinine [Mass/Vol] 1.20 mg/dL High 0.58-0.96 [facility] Glucose [Mass/Vol] 231 mg/dL High 74-99 [facility] Comment on above: The [place] Diabete s Association (ADA) provides guidance for [...] Standards of Medical Care in Diabetes 2016, [place] Diabetes [employer]. Diabetes Care. 2016.39(Suppl 1). LDH [Catalytic activity/Vol] 184 U/L 135-214 [facility] Potassium [Moles/Vol] 5.3 mmol/L High 3.7-5.1 [facility] Sodium [Moles/Vol] 142 mmol/L 136-144 [facility] Urea nitrogen [Mass/Vol] 36 mg/dL High 7-21 [facility] Laboratory - Hematology and Cell countson 05-26-2024 Eosinophils (Bld) [#/Vol] 0.19 10*3/uL <0.46 [facility] Leukocytes [#/volume] correc andreina for nucleated erythrocytes in Blood by Automated counon 05-26-2024 WBC corrected for nucl RBC Auto (Bld) [#/Vol] Leukocytes [#/volume] corrected for nucleated erythrocytes in Blood by Automated coun High 3.70-11.00 [facility] Comment on above: No clot detected.Res ults checked and verified. Lymphocytes Auto (Bld) [#/Vo l]on 05-26-2024 Lymphocytes (Bld) [#/Vol] Lymphocytes [#/volume] in Blood by Automated count High 1.00-4.00 [facility] Lymphocytes/100 WBC Auto (Bl d)on 05-26-2024 Lymphocytes/100 WBC (Bld) Lymphocytes/100 leukocytes in Blood by Automated count [facility] MCH Auto (RBC) [Entitic mass ]on 05-26-2024 MCH (RBC) [Entitic mass] MCH [Entitic ma ss] by Automated count 26.0-34.0 [facility] MCHC Auto (RBC) [Mass/Vol]on 05-26-2024 MCHC (RBC) [Mass/Vol] MCHC [Mass/volume] by Automated count 30.5-36.0 [facility] MCV Auto (RBC) [Entitic vol] on 05-26-2024 MCV (RBC) [Entitic vol] MCV [Entitic vol ume] by Automated count 80.0-100.0 [facility] Monocytes Auto (Bld) [#/Vol] on 05-26-2024 Monocytes (Bld) [#/Vol] Automated blood monocyte count <0.87 [facility] Monocytes/100 WBC Auto (Bld) on 05-26-2024 Monocytes/100 WBC (Bld) Automated monocyte % [facility] Neutrophils Auto (Bld) [#/Vo l]on 05-26-2024 Neutrophils (Bld) [#/Vol] Neutrophils [#/volume] in Blood by Automated count 1.45-7.50 [facility] Neutrophils/100 WBC Auto (Bl d)on 05-26-2024 Neutrophils/100 WBC (Bld) Automated neutrophil % [facility] No Panel Informationon 05-26 Estimated GFR (CKD-EPI) 46 mL/min/1.73m??? Low >=60 [facility] Comment on above: Estimated Glomerular Filtration [...] Reviewed: see resu lts of individual morphologies [facility] Nucleated RBC Auto (Bld) [#/ Vol]on 05-26-2024 Nucleated RBC (Bld) [#/Vol] Nucleated erythrocytes [#/volume] in Blood by Automated count <0.01 [facility] Nucleated erythrocytes [Pres ence] in Blood by Automated counton 05-26-2024 Nucleated RBC Auto Ql (Bld) Nucleated erythrocytes [Presence] in Blood by Automated count [facility] Ovalocyte detectionon 2023 Ovalocytes LM Ql (Bld) Ovalocyte detection [facility] Platelet adequacy [Presence] in Blood by Light microscopyon 05-26-2024 Platelets LM Ql (Bld) Platelet adequacy [Presence] in Blood by Light microscopy [facility] Platelet mean volume Auto (B ld) [Entitic vol]on 05-26-2024 Platelet mean volume (Bld) [Entitic vol] Platelet mean volume [Entitic volume] in Blood by Automated count 9.0-12.7 [facility] Platelets Auto (Bld) [#/Vol] on 05-26-2024 Platelets (Bld) [#/Vol] Platelets [#/vol ume] in Blood by Automated count 150-400 [facility] Polychromasia [Presence] in Blood by Light microscopyon 05-26-2024 Polychromasia LM Ql (Bld) Polychromasia [Presence] in Blood by Light microscopy [facility] Protein [Mass/volume] in Ser um or Plasmaon 11-13-2024 Protein [Mass/Vol] Protein [Mass/volume ] in Serum or Plasma 6.3-8.0 [facility] RBC Auto (Bld) [#/Vol]on RBC (Bld) [#/Vol] Erythrocytes [#/volume] in Blood by Automated count 3.90-5.20 [facility] Serum or plasma anion gap de terminationon 05-26-2024 Anion gap [Moles/Vol] Serum or plasma an ion gap determination 8-15 [facility] X-ray reportOrdered By: Teddy Arndt on 05-26-2024 Study report [facility] Main [place] [address] [place] [address] XRay Report Signed Patient: Kathy Washburn MR#: [id number] : 1940 Acct:[id number] Age/Sex: 83 / F ADM Date: 4 Loc: XD Room: Type: [facility] Attending Dr: Ayanna Vicente DO Copies to: Ayanna Vicente DO~ Ordering Provider: Ayanna Vicente DO Date of Service: 05/26/24 XR/XR hip LT min 2V(w/wo pelvis)*: M25.552 - Pain in left hip ([id number]) XR/XR knee LT 4V*: M25.552 - Pain [...] Stanford Arndt M.D.05/26/2024 4:55 PM Dictation Location: [place] [address] Transcribed By: STAS 05/26/241654 Dictated By: Stanford Arndt DO 05/26/241652 Signed By: 05/26/241654 [facility] XR knee LT 4V*on 05-26-2024 XR knee LT 4V* [facility] Main [place] [id number] XRay Report Signed Patient: Kathy Washburn MR#: [id number] : 1940 Acct:[id number] Age/Sex: 83 / F ADM Date: 05/26/24 Loc: XD Room: Type: [facility] Attending Dr: Ayanna Vicente DO Copies to: Ayanna Vicente DO Ordering Provider: Ayanna Vicente DO Date of Service: 05/26/24 XR/XR hip LT min 2V(w/wo pelvis)*: M25.552 - Pain in left hip ([id number]) XR/XR knee LT 4V*: M25.552 - Pain [...] Stanford Arndt M.D.05/26/2024 4:55 PM Dictation Location: [place] [address] Transcribed By: STAS 05/26/241654 Dictated By: Stanford Arndt DO 05/26/241652 Signed By: 05/26/241654 Normal [facility] MM screening mammo BI w/CADo n 05-18-2024 MM screening mammo BI w/CAD [facility] Main [address] [address] Mammography Report Signed Patient: Kathy Washburn MR#: [id number] : 1940 Acct:[id number] Age/Sex: 83 / F ADM Date: 05/18/24 Loc: PR Room: Type: [facility] Attending Dr: Ayanna Vicente DO Copies to: [...] Stanford Arndt M.D.05/18/2024 3:23 PM Dictation Location: [facility] Transcribed By: [facility] 05/18/24 1523 Dictated By: Stanford Arndt DO 05/18/24 1459 Signed By: 05/18/24 1523 Normal [facility] CNOVon 05-17-2024 CNOV Office Visit (RHEUAV ) KATHY WASHBURN ([id number]) 1940 F Date Time Provider Department 05/17/24 1:00 PM ZOHAIB GERMAN During your visit today, we recorded the following information about you: Pulse Blood pressure Weight Height 62/minute 117/75 103.4 kg 1.727 m Zohaib German MD 05/17/2024 1:34 PM Signed [facility] Date of Service: 05/17/2024 Patient: Kathy Washburn Medical Record: [id number] Primary Care Physician: Ayanna Vicente DO Last Rheumatology visit: None at [facility] Referring Provider: No referring provider defined [...] Use Topics (more content not included)... Normal [facility] A1C with Estimated Average G kenny 05-06-2024 Glucose [Mass/Vol] 194 mg/dL Normal [facility] Comment on above: Result Comment: PERF ORMED BY: [place] [address] PATHOLOGIST PRICE LISTER MATHIEU RASCON M.D. Performed By: #### L IPID, A1C WTH eA, T4F, URMACRERAT, TSH3, CUU, CMP, ADDONUAPLUS, T3T ####[id number] Alanine aminotransferase [En zymatic activity/volume] in Serum or PlasmaOrdered By: Ayanna Vicente on 05-06-2024 ALT [Catalytic activity/Vol] 25 U/L Normal [facility] Comment on above: Performed By: #### L IPID, A1C WT eA, T4F, URMACRERAT, TSH3, CUU, CMP, ADDONUAPLUS, T3T #### [address] ALT [Catalytic activity/Vol] Alanine aminotransferase [Enzymatic activity/volume] in Serum or Plasma [facility] Albumin [Mass/volume] in Ser um or Plasma by Bromocresol green (BCG) dye binding methoOrdered By: Ayanna Vicente on 05-06-2024 Albumin BCG dye [Mass/Vol] 4.1 g/dL 3.5-5.7 [facility] Albumin BCG dye [Mass/Vol] Albumin [Mass/volume] in Serum or Plasma by Bromocresol green (BCG) dye binding metho 3.5-5.7 [facility] Alkaline phosphatase [Enzyma tic activity/volume] in Serum or PlasmaOrdered By: Ayanna Vicente on 05-06-2024 ALP [Catalytic activity/Vol] 89 U/L Normal 34-104 [facility] Comment on above: Performed By: #### L IPID, A1C WTH eA, T4F, URMACRERAT, TSH3, CUU, CMP, ADDONUAPLUS, T3T #### [place] [id number] [place] ALP [Catalytic activity/Vol] Alkaline phosphatase [Enzymatic activity/volume] in Serum or Plasma 34-104 [facility] Appearance of UrineOrdered B y: Ayanna Vicente on 05-06-2024 Appearance (U) Urine appearance Clear [facility] Aspartate aminotransferase [ Enzymatic activity/volume] in Serum or PlasmaOrdered By: Ayanna Vicente on 05-06-2024 AST [Catalytic activity/Vol] 23 U/L Normal 1339 [facility] Comment on above: Performed By: #### L IPID, A1C WTH eA, T4F, URMACRERAT, TSH3, CUU, CMP, ADDONUAPLUS, T3T #### [facility] [address] AST [Catalytic activity/Vol] Aspartate aminotransferase [Enzymatic activity/volume] in Serum or Plasma 1339 [facility] Bacteria [Presence] in Urine sediment by Light microscopyOrdered By: Ayanna Vicente on 05-06-2024 Bacteria LM Ql (Urine sed) 4+ [HPF] High None Seen [facility] Bacteria LM Ql (Urine sed) Bacteria [Presence] in Urine sediment by Light microscopy High None Seen [facility] Bilirubin Test strip Ql (U)O rdered By: Ayanna Vicente on 05-06-2024 Bilirubin Ql (U) Negative Negative [facility] Bilirubin Ql (U) Bilirubin.total [Presence] in Urine by Test strip Negative [facility] Bilirubin.total [Mass/volume ] in Serum or PlasmaOrdered By: Ayanna Vicente on 05-06-2024 Bilirubin [Mass/Vol] 0.4 mg/dL Normal 0.3-1.0 [facility] Comment on above: Performed By: #### L IPID, A1C WTH eA, T4F, URMACRERAT, TSH3, CUU, CMP, ADDONUAPLUS, T3T #### [facility] [address] Bilirubin [Mass/Vol] Bilirubin.total [Mass/volume] in Serum or Plasma 0.3-1.0 [facility] Blood estimated average gluc ose determination by estimation from glycated hemoglobinOrdered By: Ayanna Vicente on 05-06-2024 Average glucose Estimated from glycated hemoglobin (Bld) [Mass/Vol] Glucose mean value [Mass/volume] in Blood Estimated from glycated hemoglobin [facility] Calcium [Mass/volume] in Ser um or PlasmaOrdered By: Ayanna Vicente on 05-06-2024 Calcium [Mass/Vol] 9.6 mg/dL Normal 8.6-10.3 [facility] Comment on above: Performed By: #### L IPID, A1C WTH eA, T4F, URMACRERAT, TSH3, CUU, CMP, ADDONUAPLUS, T3T #### [facility] [address] [place] [address] [place] Calcium [Mass/Vol] Calcium [Mass/volume ] in Serum or Plasma 8.6-10.3 [facility] Carbon dioxide, total [Moles /volume] in Serum or PlasmaOrdered By: Ayanna Vicente on 05-06-2024 CO2 [Moles/Vol] 30.2 mmol/L Normal 21.0-31.0 [facility] Comment on above: Performed By: #### L IPID, A1C WTH eA, T4F, URMACRERAT, TSH3, CUU, CMP, ADDONUAPLUS, T3T #### [facility] [address] [place] [address] [place] CO2 [Moles/Vol] Carbon dioxide, tota l [Moles/volume] in Serum or Plasma 21.0-31.0 [facility] Chloride [Moles/volume] in S ebony or PlasmaOrdered By: Ayanna Vicente on 05-06-2024 Chloride [Moles/Vol] 105 mmol/L Normal 98-107 [facility] Comment on above: Performed By: #### L IPID, A1C WTH eA, T4F, URMACRERAT, TSH3, CUU, CMP, ADDONUAPLUS, T3T #### [facility] [address] [place] [id number] [place] Chloride [Moles/Vol] Chloride [Moles/volume] in Serum or Plasma 98-107 [facility] Cholesterol [Mass/volume] in Serum or PlasmaOrdered By: Ayanna Vicente on 10-24-2024 Cholesterol [Mass/Vol] 134 mg/dL Low 140-200 [facility] Comment on above: Chol less than 200 m g/dl low riskChol 201-239 mg/dl borderline riskChol 240 mg/dl and greater high risk Result Comment: Chol less than 200 mg/dl low risk Chol 201-239 mg/dl borderline risk Chol 240 mg/dl and greater high risk Performed By: #### L IPID, A1C WTH eA, T4F, URMACRERAT, TSH3, CUU, CMP, ADDONUAPLUS, T3T #### [facility] [address] Cholesterol [Mass/Vol] Cholesterol [Mass/volume] in Serum or Plasma Low 140-200 [facility] Comment on above: Chol less than 200 m g/dl low riskChol 201-239 mg/dl borderline riskChol 240 mg/dl and greater high risk Cholesterol in HDL [Mass/vol ume] in Serum or PlasmaOrdered By: Ayanna Vicente on 05-06-2024 Cholesterol in HDL [Mass/Vol] Serum or plasma high density lipoprotein (HDL) cholesterol measurement [facility] Comment on above: HDL CHOL ATP-III CLA SSIFICATION Cardiovascular RiskHDL > or equal to 60 mg/dL LOWHDL < 40 mg/dL HIGH Cholesterol in LDL Calc [Mas s/Vol]Ordered By: Ayanna Vicente on 05-06-2024 Cholesterol in LDL [Mass/Vol] 46 mg/dL 0- [facility] Comment on above: LDL ATP III CLASSIFI CATIONLDL less than 100 mg/dL OptimalLDL 100-129 mg/dL Near or above optimalLDL 130-159 mg/dL Borderline highLDL 160-189 mg/dL HighLDL greater than 189 mg/dL Very high Cholesterol in LDL [Mass/Vol] Cholesterol in LDL [Mass/volume] in Serum or Plasma by calculation 0-100 [facility] Comment on above: LDL ATP III CLASSIFI CATIONLDL less than 100 mg/dL OptimalLDL 100-129 mg/dL Near or above optimalLDL 130-159 mg/dL Borderline highLDL 160-189 mg/dL HighLDL greater than 189 mg/dL Very high Cholesterol in VLDL Calc [Ma ss/Vol]Ordered By: Ayanna Vicente on 05-06-2024 Cholesterol in VLDL [Mass/Vol] 47 mg/dL [facility] Cholesterol in VLDL [Mass/Vol] Cholesterol in VLDL [Mass/volume] in Serum or Plasma by calculation [facility] Color Auto (U)Ordered By: Vasile Vicente on 05-06-2024 Color (U) Color of Urine by Auto Yellow [facility] Color of Urine by AutoOrdere d By: Ayanna Vicente on 05-06-2024 Color (U) Yellow Normal Yellow [facility] Comment on above: Order Comment: Name Collection Type:: Clean-Voided Midstream Performed By: #### L IPID, A1C WTH eA, T4F, URMACRERAT, TSH3, CUU, CMP, ADDONUAPLUS, T3T #### [facility] [address] [place] [address] Comprehensive Metabolic Pane curt 05-06-2024 Albumin [Mass/Vol] 4.1 g/dL Normal 3.5-5.7 [facility] Comment on above: Performed By: #### L IPID, A1C WTH eA, T4F, URMACRERAT, TSH3, CUU, CMP, ADDONUAPLUS, T3T #### [facility] [address] [place] [address] GFR/1.73 sq M.predicted MDRD (S/P/Bld) [Vol rate/Area] 51.605 mL/min/{1.73_m2} Normal [facility] Comment on above: Performed By: #### L IPID, A1C WTH eA, T4F, URMACRERAT, TSH3, CUU, CMP, ADDONUAPLUS, T3T #### [facility] [address] [place] [address] Creatinine [Mass/volume] in Serum or PlasmaOrdered By: Ayanna Vicente on 05-06-2024 Creatinine [Mass/Vol] 1.08 mg/dL Normal 0.60-1.20 [facility] Comment on above: Performed By: #### L IPID, A1C WTH eA, T4F, URMACRERAT, TSH3, CUU, CMP, ADDONUAPLUS, T3T #### [facility] [address] [place] [address] Creatinine [Mass/Vol] Creatinine [Mass/volume] in Serum or Plasma 0.60-1.20 [facility] Creatinine [Mass/volume] in UrineOrdered By: Ayanna Vicente on 05-06-2024 Creatinine (U) [Mass/Vol] 93.00 mg/dL [facility] Comment on above: No reference range e stablished Creatinine (U) [Mass/Vol] Creatinine [Mass/volume] in Urine [facility] Comment on above: No reference range e stablished Dipstick and Microscopicon 1 Bacteria,Urine 4+ High None Seen [facility] Comment on above: Order Comment: Name Collection Type:: Clean-Voided Midstream Performed By: #### L IPID, A1C WTH eA, T4F, URMACRERAT, TSH3, CUU, CMP, ADDONUAPLUS, T3T #### [facility] [address] [place] [address] [place] Bilirubin,Urine Negative Normal Negative [facility] Comment on above: Order Comment: Name Collection Type:: Clean-Voided Midstream Performed By: #### L IPID, A1C WTH eA, T4F, URMACRERAT, TSH3, CUU, CMP, ADDONUAPLUS, T3T #### [facility] [address] [place], [place] [id number] [facility] Glucose Ql (U) Normal Normal Normal [facility] Comment on above: Order Comment: Name Collection Type:: Clean-Voided Midstream Performed By: #### L IPID, A1C WTH eA, T4F, URMACRERAT, TSH3, CUU, CMP, ADDONUAPLUS, T3T #### [facility] [address] [place] [address] [place] Hyaline Casts,Urine 5-9 High 0-1 [facility] Comment on above: Order Comment: Name Collection Type:: Clean-Voided Midstream Result Comment: PERF ORMED BY: [place] [address] PATHOLOGIST PRICE LISTER MATHIUE RASCON M.D. Performed By: #### L IPID, A1C WTH eA, T4F, URMACRERAT, TSH3, CUU, CMP, ADDONUAPLUS, T3T #### [place] [address] [place] Nitrite,Urine Negative Normal Negative [facility] Comment on above: Order Comment: Name Collection Type:: Clean-Voided Midstream Performed By: #### L IPID, A1C WTH eA, T4F, URMACRERAT, TSH3, CUU, CMP, ADDONUAPLUS, T3T #### [place] [address] [place] Occult Blood,Urine Negative Normal Negative [facility] Comment on above: Order Comment: Name Collection Type:: Clean-Voided Midstream Performed By: #### L IPID, A1C WTH eA, T4F, URMACRERAT, TSH3, CUU, CMP, ADDONUAPLUS, T3T #### [place] [address] [place] Protein,Urine Trace High Negative [facility] Comment on above: Order Comment: Name Collection Type:: Clean-Voided Midstream Performed By: #### L IPID, A1C WTH eA, T4F, URMACRERAT, TSH3, CUU, CMP, ADDONUAPLUS, T3T #### [address] RBC LM.HPF (Urine sed) [#/Area] 0 /[HPF] Normal 0-4 [facility] Comment on above: Order Comment: Name Collection Type:: Clean-Voided Midstream Performed By: #### L IPID, A1C WTH eA, T4F, URMACRERAT, TSH3, CUU, CMP, ADDONUAPLUS, T3T #### [address] Specificy [place],Urine 1.020 Normal 1.001-1.030 [facility] Comment on above: Order Comment: Name Collection Type:: Clean-Voided Midstream Performed By: #### L IPID, A1C WTH eA, T4F, URMACRERAT, TSH3, CUU, CMP, ADDONUAPLUS, T3T #### [facility] [address] Squamous Epithelial Cell,Urine 3-4 High 0-2 [facility] Comment on above: Order Comment: Name Collection Type:: Clean-Voided Midstream Performed By: #### L IPID, A1C WTH eA, T4F, URMACRERAT, TSH3, CUU, CMP, ADDONUAPLUS, T3T #### [address] Urobilinogen,Urine Normal Normal Normal [facility] Comment on above: Order Comment: Name Collection Type:: Clean-Voided Midstream Performed By: #### L IPID, A1C WTH eA, T4F, URMACRERAT, TSH3, CUU, CMP, ADDONUAPLUS, T3T #### [address] WBC,Urine 10-19 High 0-4 [facility] Comment on above: Order Comment: Name Collection Type:: Clean-Voided Midstream Performed By: #### L IPID, A1C WTH eA, T4F, URMACRERAT, TSH3, CUU, CMP, ADDONUAPLUS, T3T #### [address] Epithelial cells.squamous [# /area] in Urine sediment by Microscopy high power fieldOrdered By: Ayanna Vicente on 05-06-2024 Epithelial cells.squamous LM.HPF (Urine sed) [#/Area] 3-4 [HPF] High 0-2 [facility] Epithelial cells.squamous LM.HPF (Urine sed) [#/Area] Epithelial cells.squamous [#/area] in Urine sediment by Microscopy high power field High 0-2 [facility] Erythrocytes [#/area] in Uri ne sediment by Microscopy high power fieldOrdered By: Ayanna Vicente on 05-06-2024 RBC LM.HPF (Urine sed) [#/Area] 0-1 [HPF] 0-4 [facility] RBC LM.HPF (Urine sed) [#/Area] Erythrocytes [#/area] in Urine sediment by Microscopy high power field 0-4 [facility] Globulin Calc (S) [Mass/Vol] Ordered By: Ayanna Vicente on 05-06-2024 Globulin (S) [Mass/Vol] Serum globulin measurement by calculation (mass/volume) [facility] Glucose [Mass/volume] in Ser um or PlasmaOrdered By: Ayanna Vicente on 05-06-2024 Glucose [Mass/Vol] 129 mg/dL High 70-100 [facility] Comment on above: ADA recommended refe rence rangeRandom Glucose Reference Range is dependent on time and content of last meal. Glucose of more than 200 mg/dL in a nonstressed, ambulatory subject supports the diagnosis of Diabetes Mellitus. Result Comment: Carman om Glucose Reference Range is dependent on time and content of last meal. Glucose of more than 200 mg/dL in a nonstressed, ambulatory subject supports the diagnosis of Diabetes Mellitus. ADA recommended reference range Performed By: #### L IPID, A1C WTH eA, T4F, URMACRERAT, TSH3, CUU, CMP, ADDONUAPLUS, T3T #### [facility] [address] Glucose [Mass/Vol] Glucose [Mass/volume ] in Serum or Plasma High 70-100 [facility] Comment on above: ADA recommended refe rence rangeRandom Glucose Reference Range is dependent on time and content of last meal. Glucose of more than 200 mg/dL in a nonstressed, ambulatory subject supports the diagnosis of Diabetes Mellitus. Glucose [Mass/volume] in Uri ne by Test stripOrdered By: Ayanna Vicente on 05-06-2024 Glucose Test strip (U) [Mass/Vol] Normal mg/dL Normal [facility] Glucose Test strip (U) [Mass/Vol] Glucose [Mass/volume] in Urine by Test strip Normal [facility] Glucose mean value [Mass/vol ume] in Blood Estimated from glycated hemoglobinOrdered By: Ayanna Vicente on 05-06-2024 Average glucose Estimated from glycated hemoglobin (Bld) [Mass/Vol] 194 mg/dL [facility] Hemoglobin A1c percentageOrd ered By: Ayanna Vicente on 05-06-2024 HbA1c (Bld) [Mass fraction] 8.4 % High 4.3-5.6 [facility] Comment on above: Increased risk for d iabetes: 5.7 - 6.4diabetes: >6.4glycemic control for adults with diabetes: <7.0 Result Comment: Incr eased risk for diabetes: 5.7 - 6.4 diabetes: >6.4 glycemic control for adults with diabetes: <7.0 Performed By: #### L IPID, A1C WTH eA, T4F, URMACRERAT, TSH3, CUU, CMP, ADDONUAPLUS, T3T ####[facility] [id number] [place] [address] [facility] Hemoglobin A1c/Hemoglobin.to dayna in BloodOrdered By: Ayanna Vicente on 05-06-2024 HbA1c (Bld) [Mass fraction] Hemoglobin A1c percentage High 4.3-5.6 [facility] Comment on above: Increased risk for d iabetes: 5.7 - 6.4diabetes: >6.4glycemic control for adults with diabetes: <7.0 Hemoglobin Test strip Ql (U) Ordered By: Ayanna Vicente on 05-06-2024 Hemoglobin Ql (U) Negative Negative [facility] Hemoglobin Ql (U) Hemoglobin [Presence ] in Urine by Test strip Negative [facility] Hyaline casts LM.LPF (Urine sed) [#/Area]Ordered By: Ayanna Vicente on 05-06-2024 Hyaline casts (Urine sed) [#/Area] 5-9 [LPF] High 0-1 [facility] Hyaline casts (Urine sed) [#/Area] Hyaline casts [#/area] in Urine sediment by Microscopy low power field High 0-1 [facility] Ketones Test strip Ql (U)Ord ered By: Ayanna Vicente on 05-06-2024 Ketones Ql (U) Ketones [Presence] i n Urine by Test strip Negative [facility] Ketones [Presence] in Urine by Test stripOrdered By: Ayanna Vicente on 05-06-2024 Ketones Ql (U) Negative Normal Negative [facility] Comment on above: Order Comment: Name Collection Type:: Clean-Voided Midstream Performed By: #### L IPID, A1C WTH eA, T4F, URMACRERAT, TSH3, CUU, CMP, ADDONUAPLUS, T3T #### [facility] [address] Laboratory - Microbiology an d Antimicrobial susceptibilityOrdered By: Ayanna Vicente on 05-06-2024 Bacteria identified Cx Nom (U) Klebsiella variicola Abnormal [facility] Bacteria identified Cx Nom (U) Klebsiella variicola Abnormal [facility] Leukocyte esterase [Presence ] in Urine by Test stripOrdered By: Ayanna Vicente on 05-06-2024 Leukocyte esterase Test strip Ql (U) 2+ High Negative [facility] Comment on above: Order Comment: Name Collection Type:: Clean-Voided Midstream Performed By: #### L IPID, A1C WTH eA, T4F, URMACRERAT, TSH3, CUU, CMP, ADDONUAPLUS, T3T #### [facility] [address] [place] [id number] [facility] Leukocyte esterase Test strip Ql (U) Leukocyte esterase [Presence] in Urine by Test strip High Negative [facility] Leukocytes [#/area] in Urine sediment by Microscopy high power fieldOrdered By: Ayanna Vicente on 05-06-2024 WBC LM.HPF (Urine sed) [#/Area] 10-19 [HPF] High 0-4 [facility] WBC LM.HPF (Urine sed) [#/Area] Leukocytes [#/area] in Urine sediment by Microscopy high power field High 0-4 [facility] Lipid Panelon 05-06-2024 LDL Cholesterol,Calculated 46 mg/dL Normal 0-100 [facility] Comment on above: Result Comment: LDL ATP III CLASSIFICATION LDL less than 100 mg/dL Optimal LDL 100-129 mg/dL Near or above optimal LDL 130-159 mg/dL Borderline high LDL 160-189 mg/dL High LDL greater than 189 mg/dL Very high Performed By: #### L IPID, A1C WTH eA, T4F, URMACRERAT, TSH3, CUU, CMP, ADDONUAPLUS, T3T #### [facility] [address] [place] [id number] [place] Triglyceride w/Reflex 235 mg/dL High 0-149 [facility] Comment on above: Result Comment: TRIG ATP III CLASSIFICATION TRIG less than 150 mg/dL Normal TRIG 150-199 mg/dL Borderline high TRIG 200-500 mg/dL High TRIG greater than 500 mg/dL Very high Standard traceable to the Center for Disease Conrtrol and Prevention (CDC) test method. Performed By: #### L IPID, A1C WTH eA, T4F, URMACRERAT, TSH3, CUU, CMP, ADDONUAPLUS, T3T #### [address] VLDL CHOLESTEROL 47 mg/dL Normal [facility] Comment on above: Performed By: #### L IPID, A1C WT eA, T4F, URMACRERAT, TSH3, CUU, CMP, ADDONUAPLUS, T3T #### [address] MicroAlb Creat Ratio,Uon Creatinine, Urine (Random) 93.00 mg/dL Normal [facility] Comment on above: Result Comment: No r eference range established Performed By: #### L IPID, A1C WTH eA, T4F, URMACRERAT, TSH3, CUU, CMP, ADDONUAPLUS, T3T #### [address] Microalbumin/Creatinine Ratio 17.2 mg/g Normal 0.0-30.0 [facility] Comment on above: Result Comment: 30-3 00 mg/g indicates an increased risk for diabetic nephropathy. Greater than 300 mg/g is consistent with clinical nephropathy. (Am. J. Kidney Disease 1994, 25:107) PERFORMED BY: [place] [address] PATHOLOGIST PRICE LISTER MATHIEU RASCON M.D. Performed By: #### L IPID, A1C WTH eA, T4F, URMACRERAT, TSH3, CUU, CMP, ADDONUAPLUS, T3T #### [address] Microalbumin [Mass/volume] i n UrineOrdered By: Ayanna Vicente on 05-06-2024 Albumin DL <= 20 mg/L (U) [Mass/Vol] 1.6 mg/dL Normal 0.0-1.8 [facility] Comment on above: Performed By: #### L IPID, A1C WT eA, T4F, URMACRERAT, TSH3, CUU, CMP, ADDONUAPLUS, T3T #### [facility] [address] Albumin DL <= 20 mg/L (U) [Mass/Vol] Microalbumin [Mass/volume] in Urine 0.0-1.8 [facility] Nitrite Test strip Ql (U)Ord ered By: Ayanna Vicente on 05-06-2024 Nitrite Ql (U) Negative Negative [facility] Nitrite Ql (U) Nitrite [Presence] i n Urine by Test strip Negative [facility] No Panel InformationOrdered By: Ayanna Vicente on 05-06-2024 Estimated GFR (CKD-EPI) 51.605 mL/Min [facility] Creatinine Clearance (Chem N/A [facility] Potassium [Moles/volume] in Serum or PlasmaOrdered By: Ayanna Vicente on 05-06-2024 Potassium [Moles/Vol] 5.1 mmol/L Normal 3.5-5.1 [facility] Comment on above: Performed By: #### L IPID, A1C [facility] eA, T4F, URMACRERAT, TSH3, CUU, CMP, ADDONUAPLUS, T3T #### [address] Potassium [Moles/Vol] Potassium [Moles/volume] in Serum or Plasma 3.5-5.1 [facility] Protein Test strip (U) [Mass /Vol]Ordered By: Ayanna Vicente on 05-06-2024 Protein (U) [Mass/Vol] Trace mg/dL High Negative F [facility] Protein (U) [Mass/Vol] Protein [Mass/vol ume] in Urine by Test strip High Negative [facility] Protein [Mass/volume] in Ser um or PlasmaOrdered By: Ayanna Vicente on 05-06-2024 Protein [Mass/Vol] 6.8 g/dL Normal 6.4-8.9 [facility] Comment on above: Performed By: #### L IPID, A1C WTH eA, T4F, URMACRERAT, TSH3, CUU, CMP, ADDONUAPLUS, T3T #### [facility] [address] [place] [address] Protein [Mass/Vol] Protein [Mass/volume ] in Serum or Plasma 6.4-8.9 [facility] Serum globulin measurement b y calculation (mass/volume)Ordered By: Ayanna Vicente on 05-06-2024 Globulin (S) [Mass/Vol] 2.7 g/dL Normal [facility] Comment on above: Performed By: #### L IPID, A1C WTH eA, T4F, URMACRERAT, TSH3, CUU, CMP, ADDONUAPLUS, T3T #### [facility] [address] [place] [address] Serum or plasma albumin/glob ulin mass ratioOrdered By: Ayanna Vicente on 05-06-2024 Albumin/Globulin [Mass ratio] 1.5 {ratio} Normal [facility] Comment on above: Performed By: #### L IPID, A1C WTH eA, T4F, URMACRERAT, TSH3, CUU, CMP, ADDONUAPLUS, T3T #### [facility] [address] [place] [address] Albumin/Globulin [Mass ratio] Serum or plasma albumin/globulin mass ratio [facility] Serum or plasma anion gap de terminationOrdered By: Ayanna Vicente on 05-06-2024 Anion gap [Moles/Vol] 10.9 mmol/L Normal 6.0-15.0 [facility] Comment on above: Performed By: #### L IPID, A1C WTH eA, T4F, URMACRERAT, TSH3, CUU, CMP, ADDONUAPLUS, T3T #### [facility] [address] [place] [address] Anion gap [Moles/Vol] Serum or plasma an ion gap determination 6.0-15.0 [facility] Serum or plasma high density lipoprotein (HDL) cholesterol measurementOrdered By: Ayanna Vicente on 05-06-2024 Cholesterol in HDL [Mass/Vol] 41 mg/dL Normal 23-92 [facility] Comment on above: HDL CHOL ATP-III CLA SSIFICATION Cardiovascular RiskHDL > or equal to 60 mg/dL LOWHDL < 40 mg/dL HIGH Result Comment: HDL CHOL ATP-III CLASSIFICATION Cardiovascular Risk HDL > or equal to 60 mg/dL LOW HDL < 40 mg/dL HIGH Performed By: #### L IPID, A1C WT eA, T4F, URMACRERAT, TSH3, CUU, CMP, ADDONUAPLUS, T3T #### [facility] [address] Serum or plasma total choles terol/high density lipoprotein (HDL) cholesterol mass ratOrdered By: Ayanna Vicente on 05-06-2024 Cholesterol.total/Choles terol in HDL [Mass ratio] 3.3 {ratio} Normal <5.0 [facility] Comment on above: Performed By: #### L IPID, A1C [facility] eA, T4F, URMACRERAT, TSH3, CUU, CMP, ADDONUAPLUS, T3T #### [facility] [address] [place] [address] [place] Cholesterol.total/Choles terol in HDL [Mass ratio] Serum or plasma total cholesterol/high density lipoprotein (HDL) cholesterol mass rat <5.0 [facility] Sodium [Moles/volume] in Ser um or PlasmaOrdered By: Ayanna Vicente on 05-06-2024 Sodium [Moles/Vol] 141 mmol/L Normal 136-145 [facility] Comment on above: Performed By: #### L IPID, A1C WT eA, T4F, URMACRERAT, TSH3, CUU, CMP, ADDONUAPLUS, T3T #### [facility] [address] [place] [id number] [place] Sodium [Moles/Vol] Sodium [Moles/volume ] in Serum or Plasma 136-145 [facility] Specific gravity Test strip (U) [Rel density]Ordered By: Ayanna Vicente on 05-06-2024 Specific gravity (U) [Rel density] 1.020 1.001-1.030 [facility] Specific gravity (U) [Rel density] Specific gravity of Urine by Test strip 1.001-1.030 [facility] Thyrotropin [Units/volume] i n Serum or PlasmaOrdered By: Ayanna Vicente on 05-06-2024 TSH Qn 1.93 m[IU]/L Normal 0.45-5.33 [facility] Comment on above: Result Comment: PERF ORMED BY: [facility] [address] [facility] [place] [address] PATHOLOGIST PRICE LISTER MATHIEU RASCON M.D. Performed By: #### L IPID, A1C [facility] eA, T4F, URMACRERAT, TSH3, CUU, CMP, ADDONUAPLUS, T3T ####[place] [id number] [place] [id number] [facility] TSH Qn Thyrotropin [Units/volume] in Serum or Plasma 0.45-5.33 [facility] Thyroxine (T4) free [Mass/vo lume] in Serum or PlasmaOrdered By: Ayanna Vicente on 05-06-2024 Free T4 [Mass/Vol] 0.94 ng/dL Normal 0.61-1.12 [facility] Comment on above: Performed By: #### L IPID, A1C [facility] eA, T4F, URMACRERAT, TSH3, CUU, CMP, ADDONUAPLUS, T3T ####[place] [id number] [facility] Free T4 [Mass/Vol] Thyroxine (T4) free [Mass/volume] in Serum or Plasma 0.61-1.12 [facility] Triglyceride [Mass/volume] i n Serum or PlasmaOrdered By: Ayanna Vicente on 05-06-2024 Triglyceride [Mass/Vol] 235 mg/dL High 0-149 [facility] Comment on above: TRIG ATP III CLASSIF ICATIONTRIG less than 150 mg/dL NormalTRIG 150-199 mg/dL Borderline highTRIG 200-500 mg/dL High TRIG greater than 500 mg/dL Very highStandard traceable to the Center for Disease Conrtrol and Prevention (CDC) test method. Triglyceride [Mass/Vol] Triglyceride [Mass/volume] in Serum or Plasma High 0-149 [facility] Comment on above: TRIG ATP III CLASSIF ICATIONTRIG less than 150 mg/dL NormalTRIG 150-199 mg/dL Borderline highTRIG 200-500 mg/dL High TRIG greater than 500 mg/dL Very highStandard traceable to the Center for Disease Conrtrol and Prevention (CDC) test method. Triiodothyronine (T3) Totalo n 05-06-2024 Triiodothyronine (T3) Total 0.89 ng/mL Normal 0.87-1.78 [facility] Comment on above: Performed By: #### L IPID, A1C WT eA, T4F, URMACRERAT, TSH3, CUU, CMP, ADDONUAPLUS, T3T ####[facility] [id number] Triiodothyronine (T3) [Mass/ volume] in Serum or PlasmaOrdered By: Ayanna Vicente on 05-06-2024 T3 [Mass/Vol] 0.89 ng/mL 0.87-1.78 [facility] T3 [Mass/Vol] Triiodothyronine (T3 ) [Mass/volume] in Serum or Plasma 0.87-1.78 [facility] Urea nitrogen [Mass/volume] in Serum or PlasmaOrdered By: Ayanna Vicente on 05-06-2024 Urea nitrogen [Mass/Vol] 29 mg/dL High 02-04 [facility] Comment on above: Performed By: #### L IPID, A1C WT eA, T4F, URMACRERAT, TSH3, CUU, CMP, ADDONUAPLUS, T3T #### [facility] [address] Urea nitrogen [Mass/Vol] Urea nitrogen [Mass/volume] in Serum or Plasma High 02-04 [facility] Urine Cultureon 05-06-2024 Bacteria identified Cx Nom (U) ORGANISM: Klebsiella variicola (O:KLEVAR) Francis Count >100,000 Aerobic CORNELIA Charge ([id number]) ---- [...] RESISTANT TO ALL B-LACTAM DRUGS. PERFORMED BY: [place] [address] PATHOLOGIST PRICE LISTER MATHIEU RASCON M.D. Normal [facility] Comment on above: Performed By: #### L IPID, A1C WT eA, T4F, URMACRERAT, TSH3, CUU, CMP, ADDONUAPLUS, T3T ####[facility] [id number] Urine appearanceOrdered By: Ayanna Vicente on 05-06-2024 Appearance (U) Clear Normal Clear [facility] Comment on above: Order Comment: Name Collection Type:: Clean-Voided Midstream Performed By: #### L IPID, A1C WTH eA, T4F, URMACRERAT, TSH3, CUU, CMP, ADDONUAPLUS, T3T #### [facility] [address] [address] Urine cultureOrdered By: Aftab Vicente on 05-06-2024 Bacteria identified Cx Nom (U) Abnormal [facility] Urine microalbumin/creatinin e mass ratioOrdered By: Ayanna Vicente on 05-06-2024 Albumin/Creatinine DL <= 20 mg/L (U) [Mass ratio] 17.2 mg/g 0.0-30.0 [facility] Comment on above: 30-300 mg/g indicate s an increased risk for diabetic nephropathy. Greater than 300 mg/g is consistent with clinical nephropathy. (Am. J. Kidney Disease 1995, 25:107) Albumin/Creatinine DL <= 20 mg/L (U) [Mass ratio] Urine microalbumin/creatini ne mass ratio 0.0-30.0 [facility] Comment on above: 30-300 mg/g indicate s an increased risk for diabetic nephropathy. Greater than 300 mg/g is consistent with clinical nephropathy. (Am. J. Kidney Disease 1995, 25:107) Urobilinogen Test strip (U) [Mass/Vol]Ordered By: Ayanna Vicente on 05-06-2024 Urobilinogen (U) [Mass/Vol] Normal mg/dL Normal [facility] Urobilinogen (U) [Mass/Vol] Urobilinogen [Mass/volume] in Urine by Test strip Normal [facility] pH Test strip (U)Ordered By: Ayanna Vicente on 05-06-2024 pH (U) pH of Urine by Test strip 5.0-9.0 [facility] pH of Urine by Test stripOrd ered By: Ayanna Vicente on 05-06-2024 pH (U) 5.5 [pH] Normal 5.0-9.0 [facility] Comment on above: Order Comment: Name Collection Type:: Clean-Voided Midstream Performed By: #### L IPID, A1C WTH eA, T4F, URMACRERAT, TSH3, CUU, CMP, ADDONUAPLUS, T3T #### [facility] [address] Ambulatory Visit Summaryon 0 02-24-2024 Ambulatory Visit Summary Ambulatory Visi t Summary KATHY WASHBURN :1940 Visit Date:02/24/2024 Ambulatory Visit Instructions Your Diagnosis Overactive bladder Mixed incontinence Recurrent UTI Your Care Team Attending Physician - JAXSSUAN SAHU PA-C Primary Care Physician - Ayanna Vicente [...] Up with SUSAN RANDOLPH PA-C, URL When: Comments: 6 mos (no labs) Where: [address] [place] [address] [id number] Medications What How Much When Why Instructions [...] social activities (more content not included)... Normal [facility] Urology Office/Clinic Noteon 02-24-2024 Urology [...] (N32.81: Overactive bladder) S/p Botox 100u 08/30/21. -[place] sxs only improved for a few weeks [...] -Start Trospium 20mg bid. RX sent to [facility]. Discussed the medication side effects, and the [...] Contact Information JAX BECKMAN, SUSAN Miller, URL [address] [place] [address] [phone] Additional Instructions: 6 mos (no labs) Patient Education Overactive Bladder, Adult Documentation recorded by the donna Ospina accurately reflects the services(s) I performed and decisions made by me. Authenticated by Susan Randolph PA-C on 02/24/2024 10:52:41. Sarah Jackson, personally scribed for Susan Randolph PA-C on [...] mg Tab, (more content not included)... Normal [facility] Comment on above: Result Comment: Elec tronically Signed By: SUSAN RANDOLPH PA-C\.br\Date and Time Signed: 02/24/24 10:53 EDT\.br\Electronically Co-Signed By: Sarah Ospina\.br\Date and Time Co-Signed: 02/24/24 10:44 EDT\.br\Electronically Co-Signed By: Sarah Ospina\.br\Date and Time Co-Signed: 02/24/24 10:47 EDT Laboratory - Chemistry and C hemistry - challengeon 02-04-2024 Bilirubin Ql (U) Negative NEGATIVE [facility] Glucose (U) [Mass/Vol] Negative NEGATIVE [facility] Ketones Ql (U) Negative NEGATIVE [facility] pH (U) 6.0 [pH] 5.0-9.0 [facility] Specific gravity (U) [Rel density] >=1.030 Abnormal 1.005-1.025 [facility] Urobilinogen Qn (U) 0.2 {Jose'U}/dL 0.2-1.0 [facility] Laboratory - Specimen inform ationon 02-04-2024 Appearance (U) CLEAR CLEAR [facility] Color (U) YELLOW YELLOW [facility] Laboratory - Urinalysison Leukocyte esterase Test strip Ql (U) TRACE Abnormal NEGATIVE [facility] Mucus Ql (Urine sed) TRACE Abnormal NONE SEEN [facility] Nitrite Ql (U) Negative NEGATIVE [facility] Protein Ql (U) TRACE mg/dL NEG/TRACE [facility] No Panel Informationon 02-03 Miscellaneous Test Comment See comment [facility] Comment on above: Specimen Source: UCC - Urine,Clean Catch - Urine CC - 200.100 Urine Bacteria TRACE #/HPF Abnormal NONE SEEN [facility] Urine Occult Blood Negative NEGATIVE [facility] Urine Other Casts NONE SEEN #/LPF NONE SEEN [facility] Urine Other Crystals None Seen #/HPF None Seen [facility] Urine RBC 0-2 #/HPF 0-2 [facility] Urine Squamous Epithelial Cells RARE #/LPF NONE/RARE [facility] Urine WBC 2-5 #/HPF Abnormal NONE SEEN [facility] Urine culture routineon 01-12 Bacteria identified Cx Nom (U) [facility] Alanine aminotransferase [En zymatic activity/volume] in Serum or PlasmaOrdered By: Ayanna Vicente on 10-17-2023 ALT [Catalytic activity/Vol] 28 U/L 7-52 [facility] Albumin [Mass/volume] in Ser um or Plasma by Bromocresol green (BCG) dye binding methoOrdered By: Ayanna Vicente on 10-17-2023 Albumin BCG dye [Mass/Vol] 4.1 g/dL 3.5-5.7 [facility] Alkaline phosphatase [Enzyma tic activity/volume] in Serum or PlasmaOrdered By: Ayanna Vicente on 10-17-2023 ALP [Catalytic activity/Vol] 93 U/L 34-104 [facility] Anisocytosis LM Ql (Bld)Orde red By: Ayanna Vicente on 10-17-2023 Anisocytosis Ql (Bld) Slight [facility] Aspartate aminotransferase [ Enzymatic activity/volume] in Serum or PlasmaOrdered By: Ayanna Vicente on 10-17-2023 AST [Catalytic activity/Vol] 30 U/L 13-39 [facility] Automated erythrocytes count in urine sediment (number/area)Ordered By: Ayanna Vicente on 10-17-2023 RBC Auto (Urine sed) [#/Area] 1-2 [HPF] 0-4 [facility] Automated leukocytes count i n urine sediment (number/area)Ordered By: yAanna Vicente on 10-17-2023 WBC Auto (Urine sed) [#/Area] 10-19 [HPF] High 0-4 [facility] Basophils Auto (Bld) [#/Vol] Ordered By: Ayanna Vicente on 10-17-2023 Basophils (Bld) [#/Vol] N/A [facility] Basophils/100 WBC Auto (Bld) Ordered By: Ayanna Vicente on 10-17-2023 Basophils/100 WBC (Bld) N/A [facility] Bilirubin Test strip Ql (U)O rdered By: Ayanna Vicente on 10-17-2023 Bilirubin Ql (U) Negative Negative [facility] Bilirubin.total [Mass/volume ] in Serum or PlasmaOrdered By: Ayanna Vicente on 10-17-2023 Bilirubin [Mass/Vol] 0.4 mg/dL 0.3-1.0 [facility] Calcium [Mass/volume] in Ser um or PlasmaOrdered By: Ayanna Vicente on 10-17-2023 Calcium [Mass/Vol] 9.7 mg/dL 8.6-10.3 [facility] Carbon dioxide, total [Moles /volume] in Serum or PlasmaOrdered By: Ayanna Vicente on 10-17-2023 CO2 [Moles/Vol] 30.9 mmol/L 21.0-31.0 [facility] Chloride [Moles/volume] in S ebony or PlasmaOrdered By: Ayanna Vicente on 10-17-2023 Chloride [Moles/Vol] 105 mmol/L 98-107 [facility] Cholesterol [Mass/volume] in Serum or PlasmaOrdered By: Ayanna Vicente on 10-17-2023 Cholesterol [Mass/Vol] 131 mg/dL Low 140-200 [facility] Comment on above: Chol less than 200 m g/dl low riskChol 201-239 mg/dl borderline riskChol 240 mg/dl and greater high risk Cholesterol in LDL Calc [Mas s/Vol]Ordered By: Ayanna Vicente on 10-17-2023 Cholesterol in LDL [Mass/Vol] 30 mg/dL 0-100 [facility] Comment on above: LDL ATP III CLASSIFI CATIONLDL less than 100 mg/dL OptimalLDL 100-129 mg/dL Near or above optimalLDL 130-159 mg/dL Borderline highLDL 160-189 mg/dL HighLDL greater than 189 mg/dL Very high Cholesterol in VLDL Calc [Ma ss/Vol]Ordered By: Ayanna Vicente on 10-17-2023 Cholesterol in VLDL [Mass/Vol] 60 mg/dL [facility] Color Auto (U)Ordered By: Vasile Vicente on 10-17-2023 Color (U) Yellow Yellow [facility] Creatinine [Mass/volume] in Serum or PlasmaOrdered By: Ayanna Vicente on 10-17-2023 Creatinine [Mass/Vol] 1.15 mg/dL 0.60-1.20 [facility] Eosinophils Auto (Bld) [#/Vo l]Ordered By: Ayanna Vicente on 10-17-2023 Eosinophils (Bld) [#/Vol] N/A [facility] Eosinophils/100 WBC Auto (Bl d)Ordered By: Ayanna Vicente on 10-17-2023 Eosinophils/100 WBC (Bld) N/A [facility] Eosinophils/100 WBC Manual c nt (Bld)Ordered By: Ayanna Vicente on 10-17-2023 Eosinophils/100 WBC (Bld) 2 % 1-3 [facility] Erythrocyte distribution wid th Auto (RBC) [Ratio]Ordered By: Ayanna Vicente on 10-17-2023 Erythrocyte distribution width (RBC) [Ratio] 15.2 % 11.9-15.3 [facility] Globulin Calc (S) [Mass/Vol] Ordered By: Ayanna Vicente on 10-17-2023 Globulin (S) [Mass/Vol] 2.6 g/dL F [facility] Glucose [Mass/volume] in Ser um or PlasmaOrdered By: Ayanna Vicente on 10-17-2023 Glucose [Mass/Vol] 162 mg/dL High 70-100 [facility] Comment on above: ADA recommended refe [...] from glycated hemoglobin (Bld) [Mass/Vol] 197 mg/dL [facility] Hematocrit Auto (Bld) [Volum e fraction]Ordered By: Ayanna Vicente on 10-17-2023 Hematocrit (Bld) [Volume fraction] 38.8 % 34.0-46.4 [facility] Hemoglobin A1c percentageOrd ered By: Ayanna Vicente on 10-17-2023 HbA1c (Bld) [Mass fraction] 8.5 % High 4.3-5.6 [facility] Comment on above: Increased risk for d iabetes: 5.7 - 6.4diabetes: >6.4glycemic control for adults with diabetes: <7.0 Hemoglobin [Mass/volume] in BloodOrdered By: Ayanna Vicente on 10-17-2023 Hemoglobin (Bld) [Mass/Vol] 12.2 g/dL 11.8-15.4 [facility] Ketones Auto test strip (U) [Mass/Vol]Ordered By: Ayanna Vicente on 10-17-2023 Ketones (U) [Mass/Vol] Negative Negative [facility] Laboratory - UrinalysisOrder ed By: Ayanna Vicente on 10-17-2023 Hyaline casts LM Ql (Urine sed) None seen [LPF] 0-8 [facility] Leukocytes [#/volume] correc andreina for nucleated erythrocytes in Blood by Automated counOrdered By: Ayanna Vicente on 10-17-2023 WBC corrected for nucl RBC Auto (Bld) [#/Vol] 15.9 10*3/uL High 3.8-11.6 [facility] Lymphocytes Auto (Bld) [#/Vo l]Ordered By: Ayanna Vicente on 10-17-2023 Lymphocytes (Bld) [#/Vol] N/A [facility] Lymphocytes/100 WBC Auto (Bl d)Ordered By: Ayanna Vicente on 10-17-2023 Lymphocytes/100 WBC (Bld) N/A [facility] Lymphocytes/100 WBC Manual c nt (Bld)Ordered By: Ayanna Vicente on 10-17-2023 Lymphocytes/100 WBC (Bld) 51 % High 18-42 [facility] MCH Auto (RBC) [Entitic mass ]Ordered By: Ayanna Vicente on 10-17-2023 MCH (RBC) [Entitic mass] 28.0 pg 24.7-34.3 [facility] MCHC Auto (RBC) [Mass/Vol]Or dered By: Ayanna Vicente on 10-17-2023 MCHC (RBC) [Mass/Vol] 31.5 g/dL Low 32.0-35.0 [facility] MCV Auto (RBC) [Entitic vol] Ordered By: Ayanna Vicente on 10-17-2023 MCV (RBC) [Entitic vol] 89.0 fL 80-100 F [facility] Microalbumin [Mass/volume] i n UrineOrdered By: Ayanna Vicente on 10-17-2023 Albumin DL <= 20 mg/L (U) [Mass/Vol] 1.9 mg/dL High 0.0-1.8 [facility] Microcytes LM Ql (Bld)Ordere d By: Ayanna Vicente on 10-17-2023 Microcytes Ql (Bld) Slight [facility] Monocytes Auto (Bld) [#/Vol] Ordered By: Ayanna Vicente on 10-17-2023 Monocytes (Bld) [#/Vol] N/A F [facility] Monocytes/100 WBC Auto (Bld) Ordered By: Ayanna Vicente on 10-17-2023 Monocytes/100 WBC (Bld) N/A F [facility] Monocytes/100 WBC Manual cnt (Bld)Ordered By: Ayanna Vicente on 10-17-2023 Monocytes/100 WBC (Bld) 8 % 2-11 F [facility] Myelocytes/100 WBC Manual cn t (Bld)Ordered By: Ayanna Vicente on 10-17-2023 Myelocytes/100 WBC (Bld) 1 % High 0-0 [facility] Neutrophils Auto (Bld) [#/Vo l]Ordered By: Ayanna Vicente on 10-17-2023 Neutrophils (Bld) [#/Vol] N/A [facility] Neutrophils/100 WBC Auto (Bl d)Ordered By: Ayanna Vicente on 10-17-2023 Neutrophils/100 WBC (Bld) N/A [facility] Nitrite Test strip Ql (U)Ord ered By: Ayanna Vicente on 10-17-2023 Nitrite Ql (U) Positive High Negative [facility] No Panel InformationOrdered By: Ayanna Vicente on 10-17-2023 Estimated GFR (CKD-EPI) 47.859 mL/Min [facility] Creatinine Clearance (Chem N/A [facility] Nucleated erythrocytes [Pres ence] in Blood by Automated countOrdered By: Ayanna Vicente on 10-17-2023 Nucleated RBC Auto Ql (Bld) N/A [facility] Platelet adequacy [Presence] in Blood by Light microscopyOrdered By: Ayanna Vicente on 10-17-2023 Platelets LM Ql (Bld) Normal Normal [facility] Platelet mean volume Auto (B ld) [Entitic vol]Ordered By: Ayanna Vicente on 10-17-2023 Platelet mean volume (Bld) [Entitic vol] 9.2 fL 6.3-10.7 [facility] Platelet morphology finding [Identifier] in BloodOrdered By: Ayanna Vicente on 10-17-2023 Platelet morphology finding Nom (Bld) Normal Normal [facility] Platelets Auto (Bld) [#/Vol] Ordered By: Ayanna Vicente on 10-17-2023 Platelets (Bld) [#/Vol] 231 10*3/uL 150-450 [facility] Poikilocytosis [Presence] in Blood by Light microscopyOrdered By: Ayanna Vicente on 10-17-2023 Poikilocytosis LM Ql (Bld) Slight [facility] Potassium [Moles/volume] in Serum or PlasmaOrdered By: Ayanna Vicente on 10-17-2023 Potassium [Moles/Vol] 5.1 mmol/L 3.5-5.1 [facility] Protein Auto test strip (U) [Mass/Vol]Ordered By: Ayanna Vicente on 10-17-2023 Protein (U) [Mass/Vol] Trace mg/dL High Negative F [facility] Protein [Mass/volume] in Ser um or PlasmaOrdered By: Ayanna Vicente on 10-17-2023 Protein [Mass/Vol] 6.7 g/dL 6.4-8.9 [facility] RBC Auto (Bld) [#/Vol]Ordere d By: Ayanna Vicente on 10-17-2023 RBC (Bld) [#/Vol] 4.36 10*6/uL 3.60-5.00 [facility] RBC morphologyOrdered By: Vasile Vicente on 10-17-2023 RBC morphology finding Nom (Bld) N/A [facility] Segmented neutrophils/100 WB C Manual cnt (Bld)Ordered By: Ayanna Vicente on 10-17-2023 Segmented neutrophils/100 WBC (Bld) 33 % Low 50-70 [facility] Serum or plasma albumin/glob ulin mass ratioOrdered By: Ayanna Vicente on 10-17-2023 Albumin/Globulin [Mass ratio] 1.6 {ratio} [facility] Serum or plasma anion gap de terminationOrdered By: Ayanna Vicente on 10-17-2023 Anion gap [Moles/Vol] 8.2 mmol/L 6.0-15.0 [facility] Serum or plasma high density lipoprotein (HDL) cholesterol measurementOrdered By: Ayanna Vicente on 10-17-2023 Cholesterol in HDL [Mass/Vol] 40 mg/dL 23-92 [facility] Comment on above: HDL CHOL ATP-III CLA SSIFICATION Cardiovascular RiskHDL > or equal to 60 mg/dL LOWHDL < 40 mg/dL HIGH Serum or plasma total choles terol/high density lipoprotein (HDL) cholesterol mass ratOrdered By: Ayanna Vicente on 10-17-2023 Cholesterol.total/Choles terol in HDL [Mass ratio] 3.3 {ratio} <5.0 [facility] Sodium [Moles/volume] in Ser um or PlasmaOrdered By: Ayanna Vicente on 10-17-2023 Sodium [Moles/Vol] 139 mmol/L 136-145 [facility] Specific gravity Auto test s trip (U) [Rel density]Ordered By: Ayanna Vicente on 10-17-2023 Specific gravity (U) [Rel density] 1.018 1.001-1.030 [facility] Squamous epithelial cells de tection in urine sediment by light microscopyOrdered By: Ayanna Vicente on 10-17-2023 Epithelial cells.squamous LM Ql (Urine sed) 0-1 [HPF] 0-2 [facility] Thyrotropin [Units/volume] i n Serum or PlasmaOrdered By: Ayanna Vicente on 10-17-2023 TSH Qn 1.46 m[IU]/L 0.45-5.33 [facility] Thyroxine (T4) free [Mass/vo lume] in Serum or PlasmaOrdered By: Ayanna Vicente on 10-17-2023 Free T4 [Mass/Vol] 1.02 ng/dL 0.61-1.12 [facility] Triglyceride [Mass/volume] i n Serum or PlasmaOrdered By: Ayanna Vicente on 10-17-2023 Triglyceride [Mass/Vol] 303 mg/dL High 0-149 F [facility] Comment on above: TRIG ATP III CLASSIF ICATIONTRIG less than 150 mg/dL NormalTRIG 150-199 mg/dL Borderline highTRIG 200-500 mg/dL High TRIG greater than 500 mg/dL Very highStandard traceable to the Center for Disease Conrtrol and Prevention (CDC) test method. Triiodothyronine (T3) Free [ Mass/volume] in Serum or PlasmaOrdered By: Ayanna Vicente on 10-17-2023 Free T3 [Mass/Vol] 3.22 pg/mL 2.50-3.90 [facility] Urea nitrogen [Mass/volume] in Serum or PlasmaOrdered By: Ayanna Vicente on 10-17-2023 Urea nitrogen [Mass/Vol] 30 mg/dL High 7-25 [facility] Urine bacteria detection by automated methodOrdered By: Ayanna Vicente on 10-17-2023 Bacteria Auto Ql (U) 4+ High None Seen [facility] Urine clarity by refractomet ry automatedOrdered By: Ayanna Vicente on 10-17-2023 Clarity Refractometry automated (U) Clear Clear [facility] Urine culture routineOrdered By: Ayanna Vicente on 10-17-2023 Bacteria identified Cx Nom (U) Escherichia coli (MDRO) Abnormal [facility] Urine glucose measurement by automated test strip (mass/volume)Ordered By: Ayanna Vicente on 10-17-2023 Glucose Auto test strip (U) [Mass/Vol] Normal mg/dL Normal [facility] Urine hemoglobin detection b y automated test stripOrdered By: Ayanna Vicente on 10-17-2023 Hemoglobin Auto test strip Ql (U) Negative Negative [facility] Urine leukocyte esterase det ection by automated test stripOrdered By: Ayanna Vicente on 10-17-2023 Leukocyte esterase Auto test strip Ql (U) 2+ High Negative [facility] Urobilinogen Auto test strip (U) [Mass/Vol]Ordered By: Ayanna Vicente on 10-17-2023 Urobilinogen (U) [Mass/Vol] Normal mg/dL Normal [facility] Variant lymphocytes/100 WBC Manual cnt (Bld)Ordered By: Ayanna Vicente on 10-17-2023 Variant lymphocytes/100 WBC (Bld) 6 % 0-12 [facility] WBC Auto (Bld) [#/Vol]Ordere d By: Ayanna Vicente on 10-17-2023 WBC (Bld) [#/Vol] 15.9 10*3/uL High 3.8-11.6 [facility] pH Auto test strip (U)Ordere d By: Ayanna Vicente on 10-17-2023 pH (U) 5.5 [pH] 5.0-9.0 [facility] Alanine aminotransferase [En zymatic activity/volume] in Serum or PlasmaOrdered By: Ayanna Vicente on 04-09-2023 ALT [Catalytic activity/Vol] 25 U/L 7-52 [facility] Albumin [Mass/volume] in Ser um or Plasma by Bromocresol green (BCG) dye binding methoOrdered By: Ayanna Vicente on 04-09-2023 Albumin BCG dye [Mass/Vol] 4.2 g/dL 3.5-5.7 [facility] Alkaline phosphatase [Enzyma tic activity/volume] in Serum or PlasmaOrdered By: Ayanna Vicente on 04-09-2023 ALP [Catalytic activity/Vol] 95 U/L 34-104 [facility] Anisocytosis LM Ql (Bld)Orde red By: Ayanna Vicente on 04-09-2023 Anisocytosis Ql (Bld) Slight [facility] Aspartate aminotransferase [ Enzymatic activity/volume] in Serum or PlasmaOrdered By: Ayanna Vicente on 04-09-2023 AST [Catalytic activity/Vol] 21 U/L 13-39 [facility] Basophils Auto (Bld) [#/Vol] Ordered By: Ayanna Vicente on 04-09-2023 Basophils (Bld) [#/Vol] N/A F [facility] Basophils/100 WBC Auto (Bld) Ordered By: Ayanna Vicente on 04-09-2023 Basophils/100 WBC (Bld) N/A F [facility] Bilirubin.total [Mass/volume ] in Serum or PlasmaOrdered By: Ayanna Vicente on 04-09-2023 Bilirubin [Mass/Vol] 0.4 mg/dL 0.3-1.0 [facility] Calcium [Mass/volume] in Ser um or PlasmaOrdered By: Ayanna Vicente on 04-09-2023 Calcium [Mass/Vol] 9.9 mg/dL 8.6-10.3 [facility] Carbon dioxide, total [Moles /volume] in Serum or PlasmaOrdered By: Ayanna Vicente on 04-09-2023 CO2 [Moles/Vol] 31.5 mmol/L 21.0-31.0 [facility] Chloride [Moles/volume] in S ebony or PlasmaOrdered By: Ayanna Vicente on 04-09-2023 Chloride [Moles/Vol] 103 mmol/L 98-107 [facility] Cholesterol [Mass/volume] in Serum or PlasmaOrdered By: Ayanna Vicente on 04-09-2023 Cholesterol [Mass/Vol] 139 mg/dL 140-200 [facility] Comment on above: Chol less than 200 m g/dl low riskChol 201-239 mg/dl borderline riskChol 240 mg/dl and greater high risk Cholesterol in LDL Calc [Mas s/Vol]Ordered By: Ayanna Vicente on 04-09-2023 Cholesterol in LDL [Mass/Vol] 27 mg/dL 0-100 [facility] Comment on above: LDL ATP III CLASSIFI CATIONLDL less than 100 mg/dL OptimalLDL 100-129 mg/dL Near or above optimalLDL 130-159 mg/dL Borderline highLDL 160-189 mg/dL HighLDL greater than 189 mg/dL Very high Cholesterol in VLDL Calc [Ma ss/Vol]Ordered By: Ayanna Vicente on 04-09-2023 Cholesterol in VLDL [Mass/Vol] 69 mg/dL [facility] Creatinine [Mass/volume] in Serum or PlasmaOrdered By: Ayanna Vicente on 04-09-2023 Creatinine [Mass/Vol] 1.06 mg/dL 0.60-1.20 [facility] Eosinophils Auto (Bld) [#/Vo l]Ordered By: Ayanna Vicente on 04-09-2023 Eosinophils (Bld) [#/Vol] N/A [facility] Eosinophils/100 WBC Auto (Bl d)Ordered By: Ayanna Vicente on 04-09-2023 Eosinophils/100 WBC (Bld) N/A [facility] Eosinophils/100 WBC Manual c nt (Bld)Ordered By: Ayanna Vicente on 04-09-2023 Eosinophils/100 WBC (Bld) 5 % 1-3 [facility] Erythrocyte distribution wid th Auto (RBC) [Ratio]Ordered By: Ayanna Vicente on 04-09-2023 Erythrocyte distribution width (RBC) [Ratio] 15.1 % 11.9-15.3 [facility] Globulin Calc (S) [Mass/Vol] Ordered By: Ayanna Vicente on 04-09-2023 Globulin (S) [Mass/Vol] 2.4 g/dL [facility] Glucose [Mass/volume] in Ser um or PlasmaOrdered By: Ayanna Vicente on 04-09-2023 Glucose [Mass/Vol] 154 mg/dL 70-100 [facility] Comment on above: ADA recommended refe [...] from glycated hemoglobin (Bld) [Mass/Vol] 200 mg/dL [facility] Hematocrit Auto (Bld) [Volum e fraction]Ordered By: Ayanna Vicente on 04-09-2023 Hematocrit (Bld) [Volume fraction] 37.2 % 34.0-46.4 [facility] Hemoglobin A1c percentageOrd ered By: Ayanna Vicente on 04-09-2023 HbA1c (Bld) [Mass fraction] 8.6 % 4.3-5.6 [facility] Comment on above: Increased risk for d iabetes: 5.7 - 6.4diabetes: >6.4glycemic control for adults with diabetes: <7.0 Hemoglobin [Mass/volume] in BloodOrdered By: Ayanna Vicente on 04-09-2023 Hemoglobin (Bld) [Mass/Vol] 12.2 g/dL 11.8-15.4 [facility] Leukocytes [#/volume] correc andreina for nucleated erythrocytes in Blood by Automated counOrdered By: Ayanna Vicente on 04-09-2023 WBC corrected for nucl RBC Auto (Bld) [#/Vol] 15.3 10*3/uL 3.8-11.6 [facility] Lymphocytes Auto (Bld) [#/Vo l]Ordered By: Ayanna Vicente on 04-09-2023 Lymphocytes (Bld) [#/Vol] N/A [facility] Lymphocytes/100 WBC Auto (Bl d)Ordered By: Ayanna Vicente on 04-09-2023 Lymphocytes/100 WBC (Bld) N/A [facility] Lymphocytes/100 WBC Manual c nt (Bld)Ordered By: Ayanna Vicente on 04-09-2023 Lymphocytes/100 WBC (Bld) 59 % 18-42 [facility] MCH Auto (RBC) [Entitic mass ]Ordered By: Ayanna Vicente on 04-09-2023 MCH (RBC) [Entitic mass] 29.1 pg 24.7-34.3 [facility] MCHC Auto (RBC) [Mass/Vol]Or dered By: Ayanna Vicente on 04-09-2023 MCHC (RBC) [Mass/Vol] 32.9 g/dL 32.0-35.0 [facility] MCV Auto (RBC) [Entitic vol] Ordered By: Ayanna Vicente on 04-09-2023 MCV (RBC) [Entitic vol] 88.5 fL 80-100 F [facility] Monocytes Auto (Bld) [#/Vol] Ordered By: Ayanna Vicente on 04-09-2023 Monocytes (Bld) [#/Vol] N/A F [facility] Monocytes/100 WBC Auto (Bld) Ordered By: Ayanna Vicente on 04-09-2023 Monocytes/100 WBC (Bld) N/A [facility] Monocytes/100 WBC Manual cnt (Bld)Ordered By: Ayanna Vicente on 04-09-2023 Monocytes/100 WBC (Bld) 7 % 2-11 F [facility] Myelocytes/100 WBC Manual cn t (Bld)Ordered By: Ayanna Vicente on 04-09-2023 Myelocytes/100 WBC (Bld) 1 % 0-0 [facility] Neutrophils Auto (Bld) [#/Vo l]Ordered By: Ayanna Vicente on 04-09-2023 Neutrophils (Bld) [#/Vol] N/A [facility] Neutrophils/100 WBC Auto (Bl d)Ordered By: Ayanna Vicente on 04-09-2023 Neutrophils/100 WBC (Bld) N/A [facility] No Panel InformationOrdered By: Ayanna Vicente on 04-09-2023 Estimated GFR (CKD-EPI) 53.106 mL/Min [facility] Creatinine Clearance (Chem N/A [facility] Nucleated erythrocytes [Pres ence] in Blood by Automated countOrdered By: Ayanna Vicente on 04-09-2023 Nucleated RBC Auto Ql (Bld) N/A [facility] Ovalocyte detectionOrdered B y: Ayanna Vicente on 04-09-2023 Ovalocytes LM Ql (Bld) Slight [facility] Platelet adequacy [Presence] in Blood by Light microscopyOrdered By: Ayanna Vicente on 04-09-2023 Platelets LM Ql (Bld) Normal Normal [facility] Platelet mean volume Auto (B ld) [Entitic vol]Ordered By: Ayanna Vicente on 04-09-2023 Platelet mean volume (Bld) [Entitic vol] 9.5 fL 6.3-10.7 [facility] Platelet morphology finding [Identifier] in BloodOrdered By: Ayanna Vicente on 04-09-2023 Platelet morphology finding Nom (Bld) Normal Normal [facility] Platelets Auto (Bld) [#/Vol] Ordered By: Ayanna Vicente on 04-09-2023 Platelets (Bld) [#/Vol] 211 10*3/uL 150-450 [facility] Potassium [Moles/volume] in Serum or PlasmaOrdered By: Ayanna Vicente on 04-09-2023 Potassium [Moles/Vol] 5.0 mmol/L 3.5-5.1 [facility] Protein [Mass/volume] in Ser um or PlasmaOrdered By: Ayanna Vicente on 04-09-2023 Protein [Mass/Vol] 6.6 g/dL 6.4-8.9 [facility] RBC Auto (Bld) [#/Vol]Ordere d By: Ayanna Vicente on 04-09-2023 RBC (Bld) [#/Vol] 4.20 10*6/uL 3.60-5.00 [facility] RBC morphologyOrdered By: Vasile Vicente on 04-09-2023 RBC morphology finding Nom (Bld) N/A [facility] Segmented neutrophils/100 WB C Manual cnt (Bld)Ordered By: Ayanna Vicente on 04-09-2023 Segmented neutrophils/100 WBC (Bld) 27 % 50-70 [facility] Serum or plasma albumin/glob ulin mass ratioOrdered By: Ayanna Vicente on 04-09-2023 Albumin/Globulin [Mass ratio] 1.8 {ratio} [facility] Serum or plasma anion gap de terminationOrdered By: Ayanna Vicente on 04-09-2023 Anion gap [Moles/Vol] 10.5 mmol/L 6.0-15.0 [facility] Serum or plasma high density lipoprotein (HDL) cholesterol measurementOrdered By: Ayanna Vicente on 04-09-2023 Cholesterol in HDL [Mass/Vol] 42 mg/dL 23-92 [facility] Comment on above: HDL CHOL ATP-III CLA SSIFICATION Cardiovascular RiskHDL > or equal to 60 mg/dL LOWHDL < 40 mg/dL HIGH Serum or plasma total choles terol/high density lipoprotein (HDL) cholesterol mass ratOrdered By: Ayanna Vicente on 04-09-2023 Cholesterol.total/Choles terol in HDL [Mass ratio] 3.3 {ratio} <5.0 [facility] Sodium [Moles/volume] in Ser um or PlasmaOrdered By: Ayanna Vicente on 04-09-2023 Sodium [Moles/Vol] 140 mmol/L 136-145 [facility] Thyrotropin [Units/volume] i n Serum or PlasmaOrdered By: Ayanna Vicente on 04-09-2023 TSH Qn 1.62 m[IU]/L 0.45-5.33 [facility] Thyroxine (T4) free [Mass/vo lume] in Serum or PlasmaOrdered By: Ayanna Vicente on 04-09-2023 Free T4 [Mass/Vol] 0.78 ng/dL 0.61-1.12 [facility] Triglyceride [Mass/volume] i n Serum or PlasmaOrdered By: Ayanna Vicente on 04-09-2023 Triglyceride [Mass/Vol] 349 mg/dL 0-149 [facility] Comment on above: TRIG ATP III CLASSIF ICATIONTRIG less than 150 mg/dL NormalTRIG 150-199 mg/dL Borderline highTRIG 200-500 mg/dL High TRIG greater than 500 mg/dL Very highStandard traceable to the Center for Disease Conrtrol and Prevention (CDC) test method. Triiodothyronine (T3) Free [ Mass/volume] in Serum or PlasmaOrdered By: Ayanna Vicente on 04-09-2023 Free T3 [Mass/Vol] 2.71 pg/mL 2.50-3.90 [facility] Urea nitrogen [Mass/volume] in Serum or PlasmaOrdered By: Ayanna Vicente on 04-09-2023 Urea nitrogen [Mass/Vol] 28 mg/dL 7-25 [facility] Variant lymphocytes/100 WBC Manual cnt (Bld)Ordered By: Ayanna Vicente on 04-09-2023 Variant lymphocytes/100 WBC (Bld) 1 % 0-12 [facility] WBC Auto (Bld) [#/Vol]Ordere d By: Ayanna Vicente on 04-09-2023 WBC (Bld) [#/Vol] 15.3 10*3/uL 3.8-11.6 [facility] Alanine aminotransferase [En zymatic activity/volume] in Serum or PlasmaOrdered By: Ayanna Vicente on 09-30-2022 ALT [Catalytic activity/Vol] 25 U/L 7-52 [facility] Albumin [Mass/volume] in Ser um or Plasma by Bromocresol green (BCG) dye binding methoOrdered By: Ayanna Vicente on 09-30-2022 Albumin BCG dye [Mass/Vol] 4.3 g/dL 3.5-5.7 [facility] Alkaline phosphatase [Enzyma tic activity/volume] in Serum or PlasmaOrdered By: Ayanna Vicente on 09-30-2022 ALP [Catalytic activity/Vol] 97 U/L 34-104 [facility] Anisocytosis LM Ql (Bld)Orde red By: Ayanna Vicente on 09-30-2022 Anisocytosis Ql (Bld) Slight [facility] Aspartate aminotransferase [ Enzymatic activity/volume] in Serum or PlasmaOrdered By: Ayanna Vicente on 09-30-2022 AST [Catalytic activity/Vol] 22 U/L 13-39 [facility] Basophils Auto (Bld) [#/Vol] Ordered By: Ayanna Vicente on 09-30-2022 Basophils (Bld) [#/Vol] 0.0 10*3/uL 0.0-0.2 [facility] Basophils/100 WBC Auto (Bld) Ordered By: Ayanna Vicente on 09-30-2022 Basophils/100 WBC (Bld) 0.3 % . F [facility] Bilirubin.total [Mass/volume ] in Serum or PlasmaOrdered By: Ayanna Vicente on 09-30-2022 Bilirubin [Mass/Vol] 0.3 mg/dL 0.3-1.0 [facility] Calcium [Mass/volume] in Ser um or PlasmaOrdered By: Ayanna Vicente on 09-30-2022 Calcium [Mass/Vol] 9.3 mg/dL 8.6-10.3 [facility] Carbon dioxide, total [Moles /volume] in Serum or PlasmaOrdered By: Ayanna Vicente on 09-30-2022 CO2 [Moles/Vol] 30.4 mmol/L 21.0-31.0 [facility] Chloride [Moles/volume] in S ebony or PlasmaOrdered By: Ayanna Vicente on 09-30-2022 Chloride [Moles/Vol] 104 mmol/L 98-107 [facility] Cholesterol [Mass/volume] in Serum or PlasmaOrdered By: Ayanna Vicente on 09-30-2022 Cholesterol [Mass/Vol] 117 mg/dL 140-200 [facility] Comment on above: Chol less than 200 m g/dl low riskChol 201-239 mg/dl borderline riskChol 240 mg/dl and greater high risk Cholesterol in LDL Calc [Mas s/Vol]Ordered By: Ayanna Vicente on 09-30-2022 Cholesterol in LDL [Mass/Vol] 35 mg/dL 0-100 [facility] Comment on above: LDL ATP III CLASSIFI CATIONLDL less than 100 mg/dL OptimalLDL 100-129 mg/dL Near or above optimalLDL 130-159 mg/dL Borderline highLDL 160-189 mg/dL HighLDL greater than 189 mg/dL Very high Cholesterol in VLDL Calc [Ma ss/Vol]Ordered By: Ayanna Vicente on 09-30-2022 Cholesterol in VLDL [Mass/Vol] 43 mg/dL [facility] Creatinine [Mass/volume] in Serum or PlasmaOrdered By: Ayanna Vicente on 09-30-2022 Creatinine [Mass/Vol] 1.25 mg/dL 0.60-1.20 [facility] Eosinophils Auto (Bld) [#/Vo l]Ordered By: Ayanna Vicente on 09-30-2022 Eosinophils (Bld) [#/Vol] 0.3 10*3/uL 0.0-0.45 [facility] Eosinophils/100 WBC Auto (Bl d)Ordered By: Ayanna Vicente on 09-30-2022 Eosinophils/100 WBC (Bld) 2.3 % . [facility] Erythrocyte distribution wid th Auto (RBC) [Ratio]Ordered By: Ayanna Vicente on 09-30-2022 Erythrocyte distribution width (RBC) [Ratio] 15.4 % 11.9-15.3 [facility] Globulin Calc (S) [Mass/Vol] Ordered By: Ayanna Vicente on 09-30-2022 Globulin (S) [Mass/Vol] 2.4 g/dL [facility] Glucose [Mass/volume] in Ser um or PlasmaOrdered By: Ayanna Vicente on 09-30-2022 Glucose [Mass/Vol] 135 mg/dL 74-109 [facility] Comment on above: ADA recommended refe [...] from glycated hemoglobin (Bld) [Mass/Vol] 203 mg/dL [facility] Hematocrit Auto (Bld) [Volum e fraction]Ordered By: Ayanna Vicente on 09-30-2022 Hematocrit (Bld) [Volume fraction] 37.0 % 34.0-46.4 [facility] Hemoglobin A1c percentageOrd ered By: Ayanna Vicente on 09-30-2022 HbA1c (Bld) [Mass fraction] 8.7 % 4.3-5.6 [facility] Comment on above: Increased risk for d iabetes: 5.7 - 6.4diabetes: >6.4glycemic control for adults with diabetes: <7.0 Hemoglobin [Mass/volume] in BloodOrdered By: Ayanna Vicente on 09-30-2022 Hemoglobin (Bld) [Mass/Vol] 12.1 g/dL 11.8-15.4 [facility] Laboratory - Chemistry and C hemistry - challengeOrdered By: Ayanna Vicente on 09-30-2022 GFR/1.73 sq M.predicted MDRD (S/P/Bld) [Vol rate/Area] 43.572 mL/min/{1.73_m2} [facility] Leukocytes [#/volume] correc andreina for nucleated erythrocytes in Blood by Automated counOrdered By: Ayanna Vicente on 09-30-2022 WBC corrected for nucl RBC Auto (Bld) [#/Vol] 15.2 10*3/uL 3.8-11.6 [facility] Lymphocytes Auto (Bld) [#/Vo l]Ordered By: Ayanna Vicente on 09-30-2022 Lymphocytes (Bld) [#/Vol] 10.5 10*3/uL 1.00-4.8 [facility] Lymphocytes/100 WBC Auto (Bl d)Ordered By: Ayanna Vicente on 09-30-2022 Lymphocytes/100 WBC (Bld) 69.4 % . [facility] MCH Auto (RBC) [Entitic mass ]Ordered By: Ayanna Vicente on 09-30-2022 MCH (RBC) [Entitic mass] 28.4 pg 24.7-34.3 [facility] MCHC Auto (RBC) [Mass/Vol]Or dered By: Ayanna Vicente on 09-30-2022 MCHC (RBC) [Mass/Vol] 32.7 g/dL 32.0-35.0 [facility] MCV Auto (RBC) [Entitic vol] Ordered By: Ayanna Vicente on 09-30-2022 MCV (RBC) [Entitic vol] 86.9 fL 80-100 [facility] Microalbumin [Mass/volume] i n UrineOrdered By: Ayanna Vicente on 09-30-2022 Albumin DL <= 20 mg/L (U) [Mass/Vol] 1.9 mg/dL 0.0-1.8 [facility] Monocytes Auto (Bld) [#/Vol] Ordered By: Ayanna Vicente on 09-30-2022 Monocytes (Bld) [#/Vol] 0.7 10*3/uL 0.0-0.8 [facility] Monocytes/100 WBC Auto (Bld) Ordered By: Ayanna Vicente on 09-30-2022 Monocytes/100 WBC (Bld) 4.5 % . [facility] Neutrophils Auto (Bld) [#/Vo l]Ordered By: Ayanna Vicente on 09-30-2022 Neutrophils (Bld) [#/Vol] 3.6 10*3/uL 1.8-7.7 [facility] Neutrophils/100 WBC Auto (Bl d)Ordered By: Ayanna Vicente on 09-30-2022 Neutrophils/100 WBC (Bld) 23.5 % . [facility] No Panel InformationOrdered By: Ayanna Vicente on 09-30-2022 Pharmacy Creatinine Clearance (Chem N/A [facility] Nucleated erythrocytes [Pres ence] in Blood by Automated countOrdered By: Ayanna Vicente on 09-30-2022 Nucleated RBC Auto Ql (Bld) 0.6 /100{WBC} 0-0.5 [facility] Ovalocyte detectionOrdered B y: Ayanna Vicente on 09-30-2022 Ovalocytes LM Ql (Bld) Slight [facility] Platelet adequacy [Presence] in Blood by Light microscopyOrdered By: Ayanna Vicente on 09-30-2022 Platelets LM Ql (Bld) Normal Normal [facility] Platelet mean volume Auto (B ld) [Entitic vol]Ordered By: Ayanna Vicente on 09-30-2022 Platelet mean volume (Bld) [Entitic vol] 8.9 fL 6.3-10.7 [facility] Platelet morphology finding [Identifier] in BloodOrdered By: Ayanna Vicente on 09-30-2022 Platelet morphology finding Nom (Bld) Normal Normal [facility] Platelets Auto (Bld) [#/Vol] Ordered By: Ayanna Vicente on 09-30-2022 Platelets (Bld) [#/Vol] 230 10*3/uL 150-450 [facility] Poikilocytosis [Presence] in Blood by Light microscopyOrdered By: Ayanna Vicente on 09-30-2022 Poikilocytosis LM Ql (Bld) Slight [facility] Potassium [Moles/volume] in Serum or PlasmaOrdered By: Ayanna Vicente on 09-30-2022 Potassium [Moles/Vol] 4.5 mmol/L 3.5-5.1 [facility] Protein [Mass/volume] in Ser um or PlasmaOrdered By: Ayanna Vicente on 09-30-2022 Protein [Mass/Vol] 6.7 g/dL 6.4-8.9 [facility] RBC Auto (Bld) [#/Vol]Ordere d By: Ayanna Vicente on 09-30-2022 RBC (Bld) [#/Vol] 4.26 10*6/uL 3.60-5.00 [facility] RBC morphologyOrdered By: Vasile Vicente on 09-30-2022 RBC morphology finding Nom (Bld) N/A [facility] Serum or plasma albumin/glob ulin mass ratioOrdered By: Ayanna Vicente on 09-30-2022 Albumin/Globulin [Mass ratio] 1.8 {ratio} [facility] Serum or plasma anion gap de terminationOrdered By: Ayanna Vicente on 09-30-2022 Anion gap [Moles/Vol] 12.1 mmol/L 6.0-15.0 [facility] Serum or plasma high density lipoprotein (HDL) cholesterol measurementOrdered By: Ayanna Vicente on 09-30-2022 Cholesterol in HDL [Mass/Vol] 39 mg/dL 35-85 [facility] Comment on above: HDL CHOL ATP-III CLA SSIFICATION Cardiovascular RiskHDL > or equal to 60 mg/dL LOWHDL < 40 mg/dL HIGH Serum or plasma total choles terol/high density lipoprotein (HDL) cholesterol mass ratOrdered By: Ayanna Vicente on 09-30-2022 Cholesterol.total/Choles terol in HDL [Mass ratio] 3.0 {ratio} <5.0 [facility] Sodium [Moles/volume] in Ser um or PlasmaOrdered By: Ayanna Vicente on 09-30-2022 Sodium [Moles/Vol] 142 mmol/L 136-145 [facility] Thyrotropin [Units/volume] i n Serum or PlasmaOrdered By: Ayanna Vicente on 09-30-2022 TSH Qn 2.04 m[IU]/L 0.45-5.33 [facility] Thyroxine (T4) free [Mass/vo lume] in Serum or PlasmaOrdered By: Ayanna Vicente on 09-30-2022 Free T4 [Mass/Vol] 0.86 ng/dL 0.61-1.12 [facility] Triglyceride [Mass/volume] i n Serum or PlasmaOrdered By: Ayanna Vicente on 09-30-2022 Triglyceride [Mass/Vol] 216 mg/dL 0-149 [facility] Comment on above: TRIG ATP III CLASSIF ICATIONTRIG less than 150 mg/dL NormalTRIG 150-199 mg/dL Borderline highTRIG 200-500 mg/dL High TRIG greater than 500 mg/dL Very highStandard traceable to the Center for Disease Conrtrol and Prevention (CDC) test method. Triiodothyronine (T3) Free [ Mass/volume] in Serum or PlasmaOrdered By: Ayanna Vicente on 09-30-2022 Free T3 [Mass/Vol] 3.13 pg/mL 2.50-3.90 [facility] Urea nitrogen [Mass/volume] in Serum or PlasmaOrdered By: Ayanna Vicente on 09-30-2022 Urea nitrogen [Mass/Vol] 33 mg/dL 7-25 [facility] WBC Auto (Bld) [#/Vol]Ordere d By: Ayanna Vicente on 09-30-2022 WBC (Bld) [#/Vol] 15.2 10*3/uL 3.8-11.6 [facility] No Panel InformationOrdered By: Ayanna Vicente on 04-23-2022 25-Hydroxy Vitamin D Total 49.9 ng/mL 30-100 [facility] Comment on above: VITAMIN D STATUS 25( OH)VITAMIN D RANGE (ng/mL) Deficient <20 Insufficient 20 to <30Sufficient 30 to 100Reference: Nile CAMPOS,Joon HOPKINS, Chon ROD, et al. Evaluation,treatment, and prevention of vitamin D deficiency; an Endocrine Society clinical practice guideline. JCEM. 2010; 96(7):1911-30. LD LACTATE DEHYDROon 022 LDH [Catalytic activity/Vol] 202 U/L 135 - 214 U/L [facility] Albumin [Mass/volume] in Ser um or PlasmaOrdered By: Ayanna Vicente on 04-01-2022 Albumin [Mass/Vol] 3.5 g/dL 3.2-5.5 [facility] Basophils Auto (Bld) [#/Vol] Ordered By: Ayanna Vicente on 04-01-2022 Basophils (Bld) [#/Vol] N/A [facility] Basophils/100 WBC Auto (Bld) Ordered By: Ayanna Vicente on 04-01-2022 Basophils/100 WBC (Bld) N/A [facility] Blood anisocytosis detection Ordered By: Ayanna Vicente on 04-01-2022 Anisocytosis Ql (Bld) Slight [facility] Blood hemoglobin measurement (mass/volume)Ordered By: Ayanna Vicente on 04-01-2022 Hemoglobin (Bld) [Mass/Vol] 12.3 g/dL 11.8-15.4 [facility] Blood leukocytes automated c ount (number/volume)Ordered By: Ayanna Vicente on 04-01-2022 WBC (Bld) [#/Vol] 12.0 10*3/uL 4.5-11.0 [facility] Cerebrospinal fluid unidenti fied cells/100 leukocytesOrdered By: Ayanna Vicente on 04-01-2022 Unidentified cells/100 WBC (CSF) 2 % 0-0 [facility] Comment on above: PRO LYMPHOCYTE Cholesterol [Mass/volume] in Serum or PlasmaOrdered By: Ayanna Vicente on 04-01-2022 Cholesterol [Mass/Vol] 102 mg/dL 140-200 [facility] Comment on above: Chol less than 200 m g/dl low risk Chol 201-239 mg/dl borderline risk Chol 240 mg/dl and greater high risk Chol less than 200 m g/dl low riskChol 201-239 mg/dl borderline riskChol 240 mg/dl and greater high risk Cholesterol in LDL Calc [Mas s/Vol]Ordered By: Ayanna Vicente on 04-01-2022 Cholesterol in LDL [Mass/Vol] 27 mg/dL 0-100 [facility] Comment on above: LDL ATP III [...] 04-01-2022 Cholesterol in VLDL [Mass/Vol] 25 mg/dL [facility] Creatinine and Glomerular fi ltration rate.predicted panel (S/P/Bld)Ordered By: Ayanna Vicente on 04-01-2022 Creatinine [Mass/Vol] 0.84 mg/dL 0.44-1.03 [facility] Eosinophils Auto (Bld) [#/Vo l]Ordered By: Ayanna Vicente on 04-01-2022 Eosinophils (Bld) [#/Vol] N/A [facility] Eosinophils/100 WBC Auto (Bl d)Ordered By: Ayanna Vicente on 04-01-2022 Eosinophils/100 WBC (Bld) N/A [facility] Erythrocyte distribution wid th Auto (RBC) [Ratio]Ordered By: Ayanna Vicente on 04-01-2022 Erythrocyte distribution width (RBC) [Ratio] 17.0 % 11.9-15.3 [facility] Estimated glomerular filtrat ion rate (GFR) non- AmericanOrdered By: Ayanna Vicente on 04-01-2022 GFR/1.73 sq M.predicted among non-blacks MDRD (S/P/Bld) [Vol rate/Area] > 60 mL/Min [facility] Globulin Calc (S) [Mass/Vol] Ordered By: Ayanna Vicente on 04-01-2022 Globulin (S) [Mass/Vol] 2.9 g/dL [facility] Glucose mean value [Mass/vol ume] in Blood Estimated from glycated hemoglobinOrdered By: Ayanna Vicente on 04-01-2022 Average glucose Estimated from glycated hemoglobin (Bld) [Mass/Vol] 255 mg/dL [facility] Hematocrit Auto (Bld) [Volum e fraction]Ordered By: Ayanna Vicente on 04-01-2022 Hematocrit (Bld) [Volume fraction] 37.9 % 34.0-46.4 [facility] Hemoglobin A1c percentageOrd ered By: Ayanna Vicente on 04-01-2022 HbA1c (Bld) [Mass fraction] 10.5 % 4.3-5.6 [facility] Comment on above: Increased risk for d iabetes: 5.7 - 6.4 diabetes: >6.4 glycemic control for adults with diabetes: <7.0 Increased risk for d iabetes: 5.7 - 6.4diabetes: >6.4glycemic control for adults with diabetes: <7.0 Laboratory - Hematology and Cell countsOrdered By: Ayanna Vicente on 04-01-2022 Nucleated RBC/100 WBC (Bld) [Ratio] 0.2 % 0-0.5 [facility] Lymphocytes Auto (Bld) [#/Vo l]Ordered By: Ayanna Vicente on 04-01-2022 Lymphocytes (Bld) [#/Vol] N/A [facility] Lymphocytes/100 WBC Auto (Bl d)Ordered By: Ayanna Vicente on 04-01-2022 Lymphocytes/100 WBC (Bld) N/A [facility] Lymphocytes/100 WBC (Bld) 60 % 18-42 [facility] Lymphocytes/100 WBC Manual c nt (Bld)Ordered By: Ayanna Vicente on 04-01-2022 Lymphocytes/100 WBC (Bld) 3 % 0-12 [facility] MCH Auto (RBC) [Entitic mass ]Ordered By: Ayanna Vicente on 04-01-2022 MCH (RBC) [Entitic mass] 28.3 pg 24.7-34.3 [facility] MCHC Auto (RBC) [Mass/Vol]Or dered By: Ayanna Vicente on 04-01-2022 MCHC (RBC) [Mass/Vol] 32.4 g/dL 32.0-35.0 [facility] MCV Auto (RBC) [Entitic vol] Ordered By: Ayanna Vicente on 04-01-2022 MCV (RBC) [Entitic vol] 87.6 fL 80-100 [facility] Manual blood monocytes/100 l eukocytesOrdered By: Ayanna Vicente on 04-01-2022 Monocytes/100 WBC (Bld) 3 % 1-3 [facility] Monocytes Auto (Bld) [#/Vol] Ordered By: Ayanna Vicente on 04-01-2022 Monocytes (Bld) [#/Vol] N/A [facility] Monocytes/100 WBC Auto (Bld) Ordered By: Ayanna Vicente on 04-01-2022 Monocytes/100 WBC (Bld) N/A [facility] Neutrophils Auto (Bld) [#/Vo l]Ordered By: Ayanna Vicente on 04-01-2022 Neutrophils (Bld) [#/Vol] N/A [facility] Neutrophils/100 WBC Auto (Bl d)Ordered By: Ayanna Vicente on 04-01-2022 Neutrophils/100 WBC (Bld) N/A [facility] No Panel InformationOrdered By: Ayanna Vicente on 04-01-2022 Estimated GFR () > 60 mL/Min [facility] Comment on above: GFR estimated refere nce range: According to KDOQI guidelines, <60 ml/min/1.73m2 is sufficient to diagnose a patient with chronic kidney disease. Pharmacy Creatinine Clearance (Chem N/A [facility] Platelet Estimate Normal Normal [facility] Platelet Morphology Comment Normal Normal [facility] Smudge Cells Few [facility] Platelet mean volume Auto (B ld) [Entitic vol]Ordered By: Ayanna Vicente on 04-01-2022 Platelet mean volume (Bld) [Entitic vol] 9.3 fL 6.3-10.7 [facility] Platelets Auto (Bld) [#/Vol] Ordered By: Ayanna Vicente on 04-01-2022 Platelets (Bld) [#/Vol] 224 10*3/uL 150-450 [facility] Protein [Mass/volume] in Ser um or PlasmaOrdered By: Ayanna Vicente on 04-01-2022 Protein [Mass/Vol] 6.4 g/dL 6.1-7.9 [facility] RBC Auto (Bld) [#/Vol]Ordere d By: Ayanna Vicente on 04-01-2022 RBC (Bld) [#/Vol] 4.33 10*6/uL 3.60-5.00 [facility] RBC morphologyOrdered By: Vasile Vicente on 04-01-2022 RBC morphology finding Nom (Bld) N/A [facility] Segmented neutrophils/100 WB C Manual cnt (Bld)Ordered By: Ayanna Vicente on 04-01-2022 Segmented neutrophils/100 WBC (Bld) 29 % 50-70 [facility] Serum or plasma alanine roman otransferase measurement without P-5'-P (enzymatic activiOrdered By: Ayanna Vicente on 04-01-2022 ALT No additional P-5'-P [Catalytic activity/Vol] 24 U/L 10-60 [facility] Serum or plasma albumin/glob ulin mass ratioOrdered By: Ayanna Vicente on 04-01-2022 Albumin/Globulin [Mass ratio] 1.2 {ratio} [facility] Serum or plasma alkaline mayelin sphatase measurement (enzymatic activity/volume)Ordered By: Ayanna Vicente on 04-01-2022 ALP [Catalytic activity/Vol] 75 U/L 32-92 [facility] Serum or plasma anion gap de terminationOrdered By: Ayanna Vicente on 04-01-2022 Anion gap [Moles/Vol] 15.8 mmol/L 6.0-15.0 [facility] Serum or plasma aspartate am inotransferase measurement (enzymatic activity/volume)Ordered By: Ayanna Vicente on 04-01-2022 AST [Catalytic activity/Vol] 26 U/L 10-42 [facility] Serum or plasma calcium massimo urement (mass/volume)Ordered By: Ayanna Vicente on 04-01-2022 Calcium [Mass/Vol] 9.3 mg/dL 8.2-10.2 [facility] Serum or plasma chloride chris surement (moles/volume)Ordered By: Ayanna Vicente on 04-01-2022 Chloride [Moles/Vol] 103 mmol/L 95-114 [facility] Serum or plasma glucose massimo urement (mass/volume)Ordered By: Ayanna Vicente on 04-01-2022 Glucose [Mass/Vol] 163 mg/dL 70-100 [facility] Comment on above: ADA recommended refe [...] Cholesterol in HDL [Mass/Vol] 50 mg/dL 35-85 [facility] Comment on above: HDL CHOL ATP-III CLA SSIFICATION Cardiovascular Risk HDL > or equal to 60 mg/dL LOW HDL < 40 mg/dL HIGH HDL CHOL ATP-III CLA SSIFICATION Cardiovascular RiskHDL > or equal to 60 mg/dL LOWHDL < 40 mg/dL HIGH Serum or plasma potassium me asurement (moles/volume)Ordered By: Ayanna Vicente on 04-01-2022 Potassium [Moles/Vol] 4.4 mmol/L 3.5-5.1 [facility] Serum or plasma sodium measu rement (moles/volume)Ordered By: Ayanna Vicente on 04-01-2022 Sodium [Moles/Vol] 141 mmol/L 136-146 [facility] Serum or plasma total biliru bin measurement (mass/volume)Ordered By: Ayanna Vicente on 04-01-2022 Bilirubin [Mass/Vol] 0.3 mg/dL 0.3-1.2 [facility] Serum or plasma total carbon dioxide measurement (moles/volume)Ordered By: Ayanna Vicente on 04-01-2022 CO2 [Moles/Vol] 26.6 mmol/L 22.0-30.0 [facility] Serum or plasma total choles terol/high density lipoprotein (HDL) cholesterol mass ratOrdered By: Ayanna Vicente on 04-01-2022 Cholesterol.total/Choles terol in HDL [Mass ratio] 2.0 {ratio} <5.0 [facility] Serum or plasma urea nitroge n measurement (mass/volume)Ordered By: Ayanna Vicente on 04-01-2022 Urea nitrogen [Mass/Vol] 12 mg/dL 9-23 [facility] TSH DL <= 0.005 mIU/L QnOrde red By: Ayanna Vicente on 04-01-2022 TSH Qn 1.11 m[IU]/L 0.45-5.33 [facility] Thyroxine (T4) free [Mass/vo lume] in Serum or PlasmaOrdered By: Ayanna Vicente on 04-01-2022 Free T4 [Mass/Vol] 1.02 ng/dL 0.61-1.12 [facility] Triglyceride [Mass/volume] i n Serum or PlasmaOrdered By: Ayanna Vicente on 04-01-2022 Triglyceride [Mass/Vol] 125 mg/dL 35-149 [facility] Comment on above: TRIG ATP III CLASSIF [...] 04-01-2022 Free T3 [Mass/Vol] 2.81 pg/mL 2.50-3.90 [facility] Glucose Glucometer (BldC) [M ass/Vol]Ordered By: Galo Max on 01-26-2022 Glucose [Mass/Vol] 117 mg/dL [facility] Comment on above: Random Glucose Refer ence Range is dependent on time and content of last meal. Glucose of more than 200 mg/dL in a nonstressed, ambulatory subject supports the diagnosis of Diabetes Mellitus. Basophils Auto (Bld) [#/Vol] Ordered By: Ashley Ramos on 01-25-2022 Basophils (Bld) [#/Vol] 0.0 10*3/uL 0.0-0.2 [facility] Basophils/100 WBC Auto (Bld) Ordered By: Ashley Ramos on 01-25-2022 Basophils/100 WBC (Bld) 0.3 % . F [facility] Blood hemoglobin measurement (mass/volume)Ordered By: Ashley Ramos on 01-25-2022 Hemoglobin (Bld) [Mass/Vol] 11.0 g/dL 11.8-15.4 [facility] Blood leukocytes automated c ount (number/volume)Ordered By: Ashley Ramos on 01-25-2022 WBC (Bld) [#/Vol] 9.5 10*3/uL 4.5-11.0 [facility] Creatinine and Glomerular fi ltration rate.predicted panel (S/P/Bld)Ordered By: Ashley Ramos on 01-25-2022 Creatinine [Mass/Vol] 0.78 mg/dL 0.44-1.03 [facility] Eosinophils Auto (Bld) [#/Vo l]Ordered By: Ashley Ramos on 01-25-2022 Eosinophils (Bld) [#/Vol] 0.3 10*3/uL 0.0-0.45 [facility] Eosinophils/100 WBC Auto (Bl d)Ordered By: Ashley Ramos on 01-25-2022 Eosinophils/100 WBC (Bld) 3.6 % . [facility] Erythrocyte distribution wid th Auto (RBC) [Ratio]Ordered By: Ashley Ramos on 01-25-2022 Erythrocyte distribution width (RBC) [Ratio] 15.4 % 11.9-15.3 [facility] Estimated glomerular filtrat ion rate (GFR) non- AmericanOrdered By: Ashley Ramos on 01-25-2022 GFR/1.73 sq M.predicted among non-blacks MDRD (S/P/Bld) [Vol rate/Area] > 60 mL/Min [facility] Hematocrit Auto (Bld) [Volum e fraction]Ordered By: Ashley Ramos on 01-25-2022 Hematocrit (Bld) [Volume fraction] 33.2 % 34.0-46.4 [facility] Laboratory - Hematology and Cell countsOrdered By: Ashley Ramos on 01-25-2022 Nucleated RBC/100 WBC (Bld) [Ratio] 0.2 % 0-0.5 [facility] Lymphocytes Auto (Bld) [#/Vo l]Ordered By: Ashley Ramos on 01-25-2022 Lymphocytes (Bld) [#/Vol] 6.4 10*3/uL 1.00-4.8 [facility] Lymphocytes/100 WBC Auto (Bl d)Ordered By: Ashley Ramos on 01-25-2022 Lymphocytes/100 WBC (Bld) 67.6 % . [facility] MCH Auto (RBC) [Entitic mass ]Ordered By: Ashley Ramos on 01-25-2022 MCH (RBC) [Entitic mass] 28.7 pg 24.7-34.3 [facility] MCHC Auto (RBC) [Mass/Vol]Or dered By: Ashley Ramos on 01-25-2022 MCHC (RBC) [Mass/Vol] 33.3 g/dL 32.0-35.0 [facility] MCV Auto (RBC) [Entitic vol] Ordered By: Ahsley Ramos on 01-25-2022 MCV (RBC) [Entitic vol] 86.3 fL 80-100 [facility] Monocytes Auto (Bld) [#/Vol] Ordered By: Ashley Ramos on 01-25-2022 Monocytes (Bld) [#/Vol] 0.7 10*3/uL 0.0-0.8 [facility] Monocytes/100 WBC Auto (Bld) Ordered By: Ashley Ramos on 01-25-2022 Monocytes/100 WBC (Bld) 7.4 % . [facility] Neutrophils Auto (Bld) [#/Vo l]Ordered By: Ashley Ramos on 01-25-2022 Neutrophils (Bld) [#/Vol] 2.0 10*3/uL 1.8-7.7 [facility] Neutrophils/100 WBC Auto (Bl d)Ordered By: Ashley Ramos on 01-25-2022 Neutrophils/100 WBC (Bld) 21.1 % . [facility] No Panel InformationOrdered By: Ashley Ramos on 01-25-2022 Estimated GFR () > 60 mL/Min [facility] Comment on above: GFR estimated refere nce range: According to KDOQI guidelines, <60 ml/min/1.73m2 is sufficient to diagnose a patient with chronic kidney disease. Pharmacy Creatinine Clearance (Chem 76.46 [facility] Platelet Estimate Normal Normal [facility] Platelet Morphology Comment Normal Normal [facility] Smudge Cells Few [facility] Platelet mean volume Auto (B ld) [Entitic vol]Ordered By: Ashley Ramos on 01-25-2022 Platelet mean volume (Bld) [Entitic vol] 8.6 fL 6.3-10.7 [facility] Platelets Auto (Bld) [#/Vol] Ordered By: Ashley Ramos on 01-25-2022 Platelets (Bld) [#/Vol] 240 10*3/uL 150-450 [facility] RBC Auto (Bld) [#/Vol]Ordere d By: Ashley Ramos on 01-25-2022 RBC (Bld) [#/Vol] 3.84 10*6/uL 3.60-5.00 [facility] RBC morphologyOrdered By: Kendall corry Rachel on 01-25-2022 RBC morphology finding Nom (Bld) Normal [facility] Serum or plasma calcium massimo urement (mass/volume)Ordered By: Ashley Ramos on 01-25-2022 Calcium [Mass/Vol] 8.7 mg/dL 8.2-10.2 [facility] Serum or plasma chloride chris surement (moles/volume)Ordered By: Ashley Ramos on 01-25-2022 Chloride [Moles/Vol] 101 mmol/L 95-114 [facility] Serum or plasma glucose massimo urement (mass/volume)Ordered By: Ashley Ramos on 01-25-2022 Glucose [Mass/Vol] 133 mg/dL 70-100 [facility] Comment on above: ADA recommended refe [...] on 01-25-2022 Potassium [Moles/Vol] 4.0 mmol/L 3.5-5.1 [facility] Serum or plasma sodium measu rement (moles/volume)Ordered By: Ashley Ramos on 01-25-2022 Sodium [Moles/Vol] 141 mmol/L 136-146 [facility] Serum or plasma total carbon dioxide measurement (moles/volume)Ordered By: Ashley Ramos on 01-25-2022 CO2 [Moles/Vol] 30.7 mmol/L 22.0-30.0 [facility] Serum or plasma urea nitroge n measurement (mass/volume)Ordered By: Ashley Ramos on 01-25-2022 Urea nitrogen [Mass/Vol] 14 mg/dL 9-23 [facility] No Panel InformationOrdered By: Galo Max on 01-24-2022 Bedside Glucose Comment Glu2: cleaned meter [facility] Bacterial blood cultureOrder ed By: James Redding on 01-18-2022 Bacteria identified Cx Nom (Bld) NO GROWTH 5 DAYS [facility] Albumin [Mass/volume] in Ser um or PlasmaOrdered By: Galo Max on 01-16-2022 Albumin [Mass/Vol] 3.1 g/dL 3.2-5.5 [facility] Blood acanthocytes detection by light microscopyOrdered By: Galo Max on 01-16-2022 Acanthocytes LM Ql (Bld) Rare [facility] Globulin Calc (S) [Mass/Vol] Ordered By: Galo Max on 01-16-2022 Globulin (S) [Mass/Vol] 3.0 g/dL F [facility] No Panel InformationOrdered By: Galo Max on 01-16-2022 CBC Comment See comment [facility] Comment on above: Slide referred to pa thologist for review Protein [Mass/volume] in Ser um or PlasmaOrdered By: Galo Max on 01-16-2022 Protein [Mass/Vol] 6.1 g/dL 6.1-7.9 [facility] Serum or plasma alanine roman otransferase measurement without P-5'-P (enzymatic activiOrdered By: Galo Max on 01-16-2022 ALT No additional P-5'-P [Catalytic activity/Vol] 24 U/L 10-60 [facility] Serum or plasma albumin/glob ulin mass ratioOrdered By: Galo Max on 01-16-2022 Albumin/Globulin [Mass ratio] 1.0 {ratio} [facility] Serum or plasma alkaline mayelin sphatase measurement (enzymatic activity/volume)Ordered By: Galo Max on 01-16-2022 ALP [Catalytic activity/Vol] 88 U/L 32-92 [facility] Serum or plasma aspartate am inotransferase measurement (enzymatic activity/volume)Ordered By: Galo Max on 01-16-2022 AST [Catalytic activity/Vol] 23 U/L 10-42 [facility] Serum or plasma prealbumin m easurement (mass/volume)Ordered By: Galo Max on 01-16-2022 Prealbumin [Mass/Vol] 22.1 mg/dL 18.0-38.0 [facility] Serum or plasma total biliru bin measurement (mass/volume)Ordered By: Galo Max on 01-16-2022 Bilirubin [Mass/Vol] 0.6 mg/dL 0.3-1.2 [facility] Creatinine and Glomerular fi ltration rate.predicted panel (S/P/Bld)Ordered By: Bertram Garrison on 01-15-2022 Creatinine [Mass/Vol] 0.80 mg/dL 0.44-1.03 [facility] Comment on above: Delta: 1.35 on 01/14 Estimated glomerular filtrat ion rate (GFR) non- AmericanOrdered By: Bertram Garrison on 01-15-2022 GFR/1.73 sq M.predicted among non-blacks MDRD (S/P/Bld) [Vol rate/Area] > 60 mL/Min [facility] Glucose Glucometer (BldC) [M ass/Vol]Ordered By: Bertram Garrison on 01-15-2022 Glucose [Mass/Vol] 226 mg/dL [facility] Comment on above: Random Glucose Refer ence Range is dependent on time and content of last meal. Glucose of more than 200 mg/dL in a nonstressed, ambulatory subject supports the diagnosis of Diabetes Mellitus. No Panel InformationOrdered By: Bertram Garrison on 01-15-2022 Bedside Glucose Comment Glu2: cleaned meter [facility] Estimated GFR () > 60 mL/Min [facility] Comment on above: GFR estimated refere nce range: According to KDOQI guidelines, <60 ml/min/1.73m2 is sufficient to diagnose a patient with chronic kidney disease. Pharmacy Creatinine Clearance (Chem 75.85 [facility] Serum or plasma calcium massimo urement (mass/volume)Ordered By: Bertram Garrison on 01-15-2022 Calcium [Mass/Vol] 9.2 mg/dL 8.2-10.2 [facility] Serum or plasma chloride chris surement (moles/volume)Ordered By: Bertram Garrison on 01-15-2022 Chloride [Moles/Vol] 99 mmol/L 95-114 [facility] Serum or plasma glucose massimo urement (mass/volume)Ordered By: Bertram Garrison on 01-15-2022 Glucose [Mass/Vol] 293 mg/dL 70-100 [facility] Comment on above: ADA recommended refe rence range Random Glucose Reference Range is dependent on time and content of last meal. Glucose of more than 200 mg/dL in a nonstressed, ambulatory subject supports the diagnosis of Diabetes Mellitus. Serum or plasma potassium me asurement (moles/volume)Ordered By: Bertram Garrison on 01-15-2022 Potassium [Moles/Vol] 4.3 mmol/L 3.5-5.1 [facility] Serum or plasma sodium measu rement (moles/volume)Ordered By: Bertram Garrison on 01-15-2022 Sodium [Moles/Vol] 136 mmol/L 136-146 [facility] Serum or plasma total carbon dioxide measurement (moles/volume)Ordered By: Bertram Garrison on 01-15-2022 CO2 [Moles/Vol] 29.1 mmol/L 22.0-30.0 [facility] Serum or plasma urea nitroge n measurement (mass/volume)Ordered By: Bertram Garrison on 01-15-2022 Urea nitrogen [Mass/Vol] 23 mg/dL 9-23 [facility] Urine culture routineOrdered By: James Redding on 01-15-2022 Bacteria identified Cx Nom (U) Enterococcus faecalis [facility] Basophils Auto (Bld) [#/Vol] Ordered By: Bertram Garrison on 01-14-2022 Basophils (Bld) [#/Vol] 0.1 10*3/uL 0.0-0.2 [facility] Basophils/100 WBC Auto (Bld) Ordered By: Bertram Garrison on 01-14-2022 Basophils/100 WBC (Bld) 0.6 % . F [facility] Blood acanthocytes detection by light microscopyOrdered By: Bertram Garrison on 01-14-2022 Acanthocytes LM Ql (Bld) Few [facility] Blood hemoglobin measurement (mass/volume)Ordered By: Bertram Garrison on 01-14-2022 Hemoglobin (Bld) [Mass/Vol] 11.7 g/dL 11.8-15.4 [facility] Blood leukocytes automated c ount (number/volume)Ordered By: Bertram Garrison on 01-14-2022 WBC (Bld) [#/Vol] 11.5 10*3/uL 4.5-11.0 [facility] Eosinophils Auto (Bld) [#/Vo l]Ordered By: Bertram Garrison on 01-14-2022 Eosinophils (Bld) [#/Vol] 0.4 10*3/uL 0.0-0.45 [facility] Eosinophils/100 WBC Auto (Bl d)Ordered By: Bertram Garrison on 01-14-2022 Eosinophils/100 WBC (Bld) 3.3 % . [facility] Erythrocyte distribution wid th Auto (RBC) [Ratio]Ordered By: Bertram Garrison on 01-14-2022 Erythrocyte distribution width (RBC) [Ratio] 14.4 % 11.9-15.3 [facility] Hematocrit Auto (Bld) [Volum e fraction]Ordered By: Bertram Garrison on 01-14-2022 Hematocrit (Bld) [Volume fraction] 35.4 % 34.0-46.4 [facility] - Hematology and Cell countsOrdered By: Bertram Garrison on 01-14-2022 Nucleated RBC/100 WBC (Bld) [Ratio] 0.3 % 0-0.5 [facility] Lymphocytes Auto (Bld) [#/Vo l]Ordered By: Bertram Garrison on 01-14-2022 Lymphocytes (Bld) [#/Vol] 7.2 10*3/uL 1.00-4.8 [facility] Lymphocytes/100 WBC Auto (Bl d)Ordered By: Bertram Garrison on 01-14-2022 Lymphocytes/100 WBC (Bld) 62.9 % . [facility] MCH Auto (RBC) [Entitic mass ]Ordered By: Bertram Garrison on 01-14-2022 MCH (RBC) [Entitic mass] 28.4 pg 24.7-34.3 [facility] MCHC Auto (RBC) [Mass/Vol]Or dered By: Bertram Garrison on 01-14-2022 MCHC (RBC) [Mass/Vol] 32.9 g/dL 32.0-35.0 [facility] MCV Auto (RBC) [Entitic vol] Ordered By: Bertram Garrison on 01-14-2022 MCV (RBC) [Entitic vol] 86.1 fL 80-100 [facility] Monocytes Auto (Bld) [#/Vol] Ordered By: Bertram Garrison on 01-14-2022 Monocytes (Bld) [#/Vol] 0.6 10*3/uL 0.0-0.8 [facility] Monocytes/100 WBC Auto (Bld) Ordered By: Bertram Garrison on 01-14-2022 Monocytes/100 WBC (Bld) 5.0 % . [facility] Neutrophils Auto (Bld) [#/Vo l]Ordered By: Bertram Garrison on 01-14-2022 Neutrophils (Bld) [#/Vol] 3.2 10*3/uL 1.8-7.7 [facility] Neutrophils/100 WBC Auto (Bl d)Ordered By: Bertram Garrison on 01-14-2022 Neutrophils/100 WBC (Bld) 28.2 % . [facility] No Panel InformationOrdered By: Bertram Garrison on 01-14-2022 Platelet Estimate Normal Normal [facility] Platelet Morphology Comment Normal Normal [facility] Platelet mean volume Auto (B ld) [Entitic vol]Ordered By: Bertram Garrison on 01-14-2022 Platelet mean volume (Bld) [Entitic vol] 9.8 fL 6.3-10.7 [facility] Platelets Auto (Bld) [#/Vol] Ordered By: Bertram Garrison on 01-14-2022 Platelets (Bld) [#/Vol] 277 10*3/uL 150-450 [facility] RBC Auto (Bld) [#/Vol]Ordere d By: Bertram Garrison on 01-14-2022 RBC (Bld) [#/Vol] 4.11 10*6/uL 3.60-5.00 [facility] RBC morphologyOrdered By: New Garrison on 01-14-2022 RBC morphology finding Nom (Bld) Normal [facility] Albumin [Mass/volume] in Ser um or PlasmaOrdered By: James Redding on 01-13-2022 Albumin [Mass/Vol] 3.1 g/dL 3.2-5.5 [facility] Automated erythrocytes count in urine sediment (number/area)Ordered By: James Redding on 01-13-2022 RBC Auto (Urine sed) [#/Area] 0-1 [HPF] 0-4 [facility] Automated leukocytes count i n urine sediment (number/area)Ordered By: James Redding on 01-13-2022 WBC Auto (Urine sed) [#/Area] 50-100 [HPF] 0-4 [facility] Bilirubin Test strip Ql (U)O rdered By: James Redding on 01-13-2022 Bilirubin Ql (U) 1+ Negative [facility] COVID-19 Positive/NegativeOr dered By: James Redding on 01-13-2022 SARS-CoV-2 (COVID-19) N gene FARRAH+probe Ql (Resp) Negative Negative [facility] Comment on above: Testing for SARS-CoV -2 by RT-PCR This test was developed and its performance characteristics determined by [employer] ([employer] and validated at the [facility]. This test has not been FDA [...] (COVID-19) Ag IA.rapid Ql (Resp) Negative Negative [facility] Comment on above: This is a duplicate Brianna SARS Antigen (DUSTIN) result to be used for statistical tracking purpose only. Color Auto (U)Ordered By: Anni Redding on 01-13-2022 Color (U) Dark yellow Yellow [facility] Globulin Calc (S) [Mass/Vol] Ordered By: James Redding on 01-13-2022 Globulin (S) [Mass/Vol] 3.0 g/dL F [facility] Ketones Auto test strip (U) [Mass/Vol]Ordered By: James Redding on 01-13-2022 Ketones (U) [Mass/Vol] Trace Negative [facility] Laboratory - UrinalysisOrder ed By: James Redding on 01-13-2022 Hyaline casts LM Ql (Urine sed) 9-19 [LPF] 0-8 [facility] Nitrite Test strip Ql (U)Ord ered By: James Redding on 01-13-2022 Nitrite Ql (U) Negative Negative [facility] No Panel InformationOrdered By: James Redding on 01-13-2022 Smudge Cells Few [facility] SARS Antigen (LFIA) [facility] Protein Auto test strip (U) [Mass/Vol]Ordered By: James Redding on 01-13-2022 Protein (U) [Mass/Vol] 30 mg/dL Negative [facility] Protein [Mass/volume] in Ser um or PlasmaOrdered By: James Redding on 01-13-2022 Protein [Mass/Vol] 6.1 g/dL 6.1-7.9 [facility] Serum or plasma alanine roman otransferase measurement without P-5'-P (enzymatic activiOrdered By: James Redding on 01-13-2022 ALT No additional P-5'-P [Catalytic activity/Vol] 27 U/L 10-60 [facility] Serum or plasma albumin/glob ulin mass ratioOrdered By: James Redding on 01-13-2022 Albumin/Globulin [Mass ratio] 1.0 {ratio} [facility] Serum or plasma alkaline mayelin sphatase measurement (enzymatic activity/volume)Ordered By: James Redding on 01-13-2022 ALP [Catalytic activity/Vol] 95 U/L 32-92 [facility] Serum or plasma aspartate am inotransferase measurement (enzymatic activity/volume)Ordered By: James Redding on 01-13-2022 AST [Catalytic activity/Vol] 27 U/L 10-42 [facility] Serum or plasma total biliru bin measurement (mass/volume)Ordered By: James Redding on 01-13-2022 Bilirubin [Mass/Vol] 0.6 mg/dL 0.3-1.2 [facility] Specific gravity Auto test s trip (U) [Rel density]Ordered By: James Redding on 01-13-2022 Specific gravity (U) [Rel density] 1.029 1.001-1.030 [facility] Squamous epithelial cells de tection in urine sediment by light microscopyOrdered By: James Redding on 01-13-2022 Epithelial cells.squamous LM Ql (Urine sed) 1-2 [HPF] 0-1 [facility] Troponin I.cardiac [Mass/vol ume] in Serum or Plasma by High sensitivity methodOrdered By: James Redding on 01-13-2022 Troponin I.cardiac High sensitivity method [Mass/Vol] 4 pg/mL 0-15 [facility] Urine bacteria detection by automated methodOrdered By: James Redding on 01-13-2022 Bacteria Auto Ql (U) 2+ None Seen [facility] Urine clarity by refractomet ry automatedOrdered By: James Redding on 01-13-2022 Clarity Refractometry automated (U) Cloudy Clear [facility] Urine glucose measurement by automated test strip (mass/volume)Ordered By: James Redding on 01-13-2022 Glucose Auto test strip (U) [Mass/Vol] Normal mg/dL Normal [facility] Urine hemoglobin detection b y automated test stripOrdered By: James Redding on 01-13-2022 Hemoglobin Auto test strip Ql (U) Negative Negative [facility] Urine leukocyte esterase det ection by automated test stripOrdered By: James Redding on 01-13-2022 Leukocyte esterase Auto test strip Ql (U) 3+ Negative [facility] Urobilinogen Auto test strip (U) [Mass/Vol]Ordered By: James Redding on 01-13-2022 Urobilinogen (U) [Mass/Vol] Normal mg/dL Normal [facility] pH Auto test strip (U)Ordere d By: James Redding on 01-13-2022 pH (U) 5.0 [pH] 5.0-9.[address] [facility] CARDIAC STRESS/REST INJE CTIONon 01-04-2021 [facility] CARDIAC STRESS/REST INJECTION Patient Name: KATHY WASHBURN STUDY: MYOCARDIAL PERFUSION STRESS TEST WITH LEXISCAN Performing facility: [facility], [address] [place] [address], [address], [address] Provider: Osmel Fernandes MD, [facility] PCP: Dr. Lyndon Vicente Supervising provider: Osmel Fernandes MD, [facility] INDICATION: Chest Pain; HTN Hyperlipidemia Diabetes Dyspnea HISTORY: Gender: F; Age: 80 y/o ; Height: 175.26 cm; Weight: 122.1810804 kg. High Cholesterol; Diabetes; HTN; Chest Pain; SOB; Quit smoking Unknown years ago. COMPARISON: Previous nuclear testing completed at [facility]. ACCESSION NUMBER(S): [id number]; [id number]; [id number] ORDERING CLINICIAN: MONET FERNANDES TECHNIQUE: ONE DAY [...] Electronically signed by: SARAH HODGES MD Normal [facility] Vital Signs Date Time Vital Sign Value Performing Clinician Faci lity 02-15-2025 14:44-0400 Body height 175.26 cm Ayanna Earleabbi DO Work Phone: [facility] 02-15-2025 14:44-0400 Body mass index (BMI) [Ratio] 34 kg/m2 Ayanna Vicente DO Work Phone: [facility] 02-15-2025 14:44-0400 Body temperature 98.3 [degF] Ayanna Vicente DO Work Phone: [facility] 02-15-2025 14:44-0400 Body weight 104.32 kg Ayanna Sakina DO Work Phone: [facility] 02-15-2025 14:44-0400 Diastolic blood pressure 82 mm[Hg] Ayanna Earleabbi DO Work Phone: [facility] 02-15-2025 14:44-0400 Heart rate 79 /min Ayanna Sakina DO Work Phone: [facility] 02-15-2025 14:44-0400 SaO2% (BldA) [Mass fraction] 92 % Ayanna Sakina DO Work Phone: [facility] 02-15-2025 14:44-0400 Systolic blood pressure 120 mm[Hg] Ayanna Vicente DO Work Phone: [facility] 01-27-2025 13:56-0400 Body height 175.26 cm Ayanna Vicente DO Work Phone: [facility] 01-27-2025 13:56-0400 Body mass index (BMI) [Ratio] 33.5 kg/m2 Ayanna Vicente DO Work Phone: [facility] 01-27-2025 13:56-0400 Body weight 103.02 kg Ayanna Vicente DO Work Phone: [facility] 01-27-2025 13:56-0400 Diastolic blood pressure 74 mm[Hg] Ayanna Vicente DO Work Phone: [facility] 01-27-2025 13:56-0400 Heart rate 59 /min Ayanna Vicente DO Work Phone: [facility] 01-27-2025 13:56-0400 Respiratory rate 16 /min Ayanna Vicente DO Work Phone: [facility] 01-27-2025 13:56-0400 SaO2% (BldA) [Mass fraction] 94 % Ayanna Vicente DO Work Phone: [facility] 01-27-2025 13:56-0400 Systolic blood pressure 122 mm[Hg] Ayanna Vicente DO Work Phone: [facility] 01-12-2025 13:23-0400 Body height 175.3 cm Moe Itzkowitz DO Work Phone: [facility] 01-12-2025 13:23-0400 Body mass index (BMI) [Ratio] 33.23 kg/m2 Moe Itzkowitz DO Work Phone: [facility] 01-12-2025 13:23-0400 Body weight 102.06 kg Moe Itzkowitz DO Work Phone: [facility] 01-12-2025 13:23-0400 Diastolic blood pressure 76 mm[Hg] Moe Itzkowitz DO Work Phone: [facility] 01-12-2025 13:23-0400 Systolic blood pressure 122 mm[Hg] Moe Itzkowitz DO Work Phone: [facility] 12-17-2024 10:27-0400 Body height 172.7 cm Zohaib German MD Work Phone: [facility] 12-17-2024 10:27-0400 Body mass index (BMI) [Ratio] 34.74 kg/m2 Zohaib German MD Work Phone: [facility] 12-17-2024 10:27-0400 Body temperature 64.99 [degF] Zohaib German MD Work Phone: [facility] 12-17-2024 10:27-0400 Body weight 103.6 kg Zohaib German MD Work Phone: [facility] 12-17-2024 10:27-0400 Diastolic blood pressure 71 mm[Hg] Zohaib German MD Work Phone: [facility] 12-17-2024 10:27-0400 Systolic blood pressure 112 mm[Hg] Zohaib German MD Work Phone: [facility] 12-16-2024 14:21-0400 Body height 175.26 cm [facility] 12-16-2024 14:21-0400 Body mass index (BMI) [Ratio] 34.9 kg/m2 [facility] 12-16-2024 14:21-0400 Body temperature 96.9 [degF] [facility] 12-16-2024 14:21-0400 Body weight 107.5 kg [facility] 12-16-2024 14:21-0400 Diastolic blood pressure 69 mm[Hg] [facility] 12-16-2024 14:21-0400 Heart rate 68 /min [facility] 12-16-2024 14:21-0400 Respiratory rate 18 /min [facility] [facility] 12-16-2024 14:21-0400 SaO2% (BldA) [Mass fraction] 92 % [facility] 12-16-2024 14:21-0400 Systolic blood pressure 104 mm[Hg] [facility] 11-10-2024 15:40-0400 Body height 175.26 cm [facility] 11-10-2024 15:40-0400 Body mass index (BMI) [Ratio] 32.9 kg/m2 [facility] 11-10-2024 15:40-0400 Body temperature 97.3 [degF] [facility] 11-10-2024 15:40-0400 Body weight 101.15 kg [facility] 11-10-2024 15:40-0400 Diastolic blood pressure 84 mm[Hg] [facility] 11-10-2024 15:40-0400 Heart rate 74 /min [facility] 11-10-2024 15:40-0400 SaO2% (BldA) [Mass fraction] 94 % [facility] 11-10-2024 15:40-0400 Systolic blood pressure 132 mm[Hg] [facility] 08-16-2024 09:06-0500 Diastolic blood pressure 58 mm[Hg] SUSAN JAX [facility] 08-16-2024 09:06-0500 Heart rate 69 /min SUSAN JAX [facility] 08-16-2024 09:06-0500 Respiratory rate 16 /min SUSAN JAX [facility] 08-16-2024 09:06-0500 Systolic blood pressure 92 mm[Hg] SUSAN JAX [facility] 08-09-2024 14:16-0500 Body mass index (BMI) [Ratio] 32.93 kg/m2 Esvin Dubon [employer] Work Phone: [facility] 08-09-2024 14:16-0500 Body weight 101.15 kg Esvin Dubon [employer] Work Phone: [facility] 08-09-2024 14:16-0500 Diastolic blood pressure 87 mm[Hg] Esvin Dubon [employer] DEV[employer] Work Phone: [facility] 08-09-2024 14:16-0500 Heart rate 64 /min Esvin Dubon [employer] DEV[employer] Work Phone: [facility] 08-09-2024 14:16-0500 Systolic blood pressure 125 mm[Hg] Esvin Dubon [employer] Work Phone: [facility] 06-23-2024 14:34-0500 Body height 175.3 cm Moe Itzkowitz DO Work Phone: [facility] 06-23-2024 14:34-0500 Body mass index (BMI) [Ratio] 33.67 kg/m2 Moe Itzkowitz DO Work Phone: [facility] 06-23-2024 14:34-0500 Body weight 103.42 kg Moe Itzkowitz DO Work Phone: [facility] 06-23-2024 14:34-0500 Diastolic blood pressure 85 mm[Hg] Moe Itzkowitz DO Work Phone: [facility] 06-23-2024 14:34-0500 Systolic blood pressure 135 mm[Hg] Moe Itzkowitz DO Work Phone: [facility] 06-17-2024 13:58-0500 Body mass index (BMI) [Ratio] 33.82 kg/m2 Christopher Aundrea DO Work Phone: [facility] 06-17-2024 13:58-0500 Body weight 103.87 kg Christopher Aundrea DO Work Phone: [facility] 06-17-2024 13:58-0500 Diastolic blood pressure 74 mm[Hg] Christopher Aundrea DO Work Phone: [facility] 06-17-2024 13:58-0500 Heart rate 84 /min Christopher Aundrea DO Work Phone: [facility] 06-17-2024 13:58-0500 SaO2% (BldA) [Mass fraction] 90 % Christopher Aundrea DO Work Phone: [facility] 06-17-2024 13:58-0500 Systolic blood pressure 138 mm[Hg] Christopher Aundrea DO Work Phone: [facility] 05-26-2024 13:54-0500 Body height 172.7 cm Chad Freitas MD Work Phone: [facility] 05-26-2024 13:54-0500 Body mass index (BMI) [Ratio] 35.31 kg/m2 Chad Freitas MD Work Phone: [facility] 05-26-2024 13:54-0500 Body temperature 97 [degF] Chad Freitas MD Work Phone: [facility] 05-26-2024 13:54-0500 Body weight 105.33 kg Chad Freitas MD Work Phone: [facility] 05-26-2024 13:54-0500 Diastolic blood pressure 51 mm[Hg] Chad Freitas MD Work Phone: [facility] 05-26-2024 13:54-0500 Heart rate 70 /min Chad Freitas MD Work Phone: [facility] 05-26-2024 13:54-0500 Respiratory rate 16 /min Chad Freitas MD Work Phone: [facility] 05-26-2024 13:54-0500 SaO2% (BldA) [Mass fraction] 91 % Chad Freitas MD Work Phone: [facility] 05-26-2024 13:54-0500 Systolic blood pressure 92 mm[Hg] Chad Freitas MD Work Phone: [facility] 05-17-2024 13:00-0500 Body height 172.7 cm Zohaib German MD Work Phone: [facility] 05-17-2024 13:00-0500 Body mass index (BMI) [Ratio] 34.67 kg/m2 Zohaib German MD Work Phone: [facility] 05-17-2024 13:00-0500 Body weight 103.4 kg Zohaib German MD Work Phone: [facility] 05-17-2024 13:00-0500 Diastolic blood pressure 75 mm[Hg] Zohaib German MD Work Phone: [facility] 05-17-2024 13:00-0500 Heart rate 62 /min Zohaib German MD Work Phone: [facility] 05-17-2024 13:00-0500 Systolic blood pressure 117 mm[Hg] Zohaib German MD Work Phone: [facility] 05-12-2024 13:50-0400 Body height 180.34 cm DO Ayanna Ogabbi Work Phone: [facility] 05-12-2024 13:50-0400 Body mass index (BMI) [Ratio] 32.2 kg/m2 DO Ayanna Ogabbi Work Phone: [facility] 05-12-2024 13:50-0400 Body weight 104.77 kg DO Ayanna Ogabbi Work Phone: [facility] 05-12-2024 13:50-0400 Diastolic blood pressure 57 mm[Hg] DO Ayanna Vicente Work Phone: [facility] 05-12-2024 13:50-0400 Heart rate 86 /min DO Ayanna Vicente Work Phone: [facility] 05-12-2024 13:50-0400 SaO2% (BldA) [Mass fraction] 93 % DO Ayanna Sakina Work Phone: [facility] 05-12-2024 13:50-0400 Systolic blood pressure 128 mm[Hg] DO Ayanna Sakina Work Phone: [facility] 05-11-2024 14:45-0400 Body mass index (BMI) [Ratio] 31.9 kg/m2 DO Ayanna Ogabbi Work Phone: [facility] 05-11-2024 14:45-0400 Body temperature 97.3 [degF] DO Ayanna Ogabbi Work Phone: [facility] 05-11-2024 14:45-0400 Diastolic blood pressure 70 mm[Hg] DO Ayanna Vicente Work Phone: [facility] 05-11-2024 14:45-0400 Heart rate 76 /min DO Ayanna Vicente Work Phone: [facility] 05-11-2024 14:45-0400 SaO2% (BldA) [Mass fraction] 91 % DO Ayanna Vicente Work Phone: [facility] 05-11-2024 14:45-0400 Systolic blood pressure 116 mm[Hg] DO Ayanna Vicente Work Phone: [facility] 05-11-2024 13:41-0400 Body height 180.34 cm DO Ayanna Vicente Work Phone: [facility] 05-11-2024 13:41-0400 Body weight 103.87 kg DO Ayanna Vicente Work Phone: [facility] 04-05-2024 08:52-0400 Body height 180.34 cm [facility] 04-05-2024 08:52-0400 Body mass index (BMI) [Ratio] 32.3 kg/m2 [facility] 04-05-2024 08:52-0400 Body temperature 97 [degF] [facility] 04-05-2024 08:52-0400 Body weight 105.23 kg [facility] 04-05-2024 08:52-0400 Diastolic blood pressure 62 mm[Hg] [facility] 04-05-2024 08:52-0400 Heart rate 87 /min [facility] 04-05-2024 08:52-0400 SaO2% (BldA) [Mass fraction] 90 % [facility] 04-05-2024 08:52-0400 Systolic blood pressure 98 mm[Hg] [facility] 03-08-2024 14:43-0400 Body height 180.34 cm [facility] 03-08-2024 14:43-0400 Body mass index (BMI) [Ratio] 32.1 kg/m2 [facility] 03-08-2024 14:43-0400 Body temperature 97 [degF] [facility] 03-08-2024 14:43-0400 Body weight 104.32 kg [facility] 03-08-2024 14:43-0400 Diastolic blood pressure 64 mm[Hg] [facility] 03-08-2024 14:43-0400 Heart rate 73 /min [facility] 03-08-2024 14:43-0400 SaO2% (BldA) [Mass fraction] 95 % [facility] 03-08-2024 14:43-0400 Systolic blood pressure 98 mm[Hg] [facility] 02-24-2024 10:15-0400 Body temperature 97.88 [degF] SUSAN JAX [facility] 02-24-2024 10:15-0400 Diastolic blood pressure 42 mm[Hg] SUSAN JAX [facility] 02-24-2024 10:15-0400 Heart rate 68 /min SUSAN JAX [facility] 02-24-2024 10:15-0400 Respiratory rate 16 /min SUSAN JAX [facility] 02-24-2024 10:15-0400 Systolic blood pressure 106 mm[Hg] SUSAN JAX [facility] 02-05-2024 08:08-0400 Body height 180.34 cm [facility] 02-05-2024 08:08-0400 Body mass index (BMI) [Ratio] 32.3 kg/m2 [facility] 02-05-2024 08:08-0400 Body temperature 97.8 [degF] [facility] 02-05-2024 08:08-0400 Body weight 105.23 kg [facility] 02-05-2024 08:08-0400 Diastolic blood pressure 74 mm[Hg] [facility] 02-05-2024 08:08-0400 Heart rate 70 /min [facility] 02-05-2024 08:08-0400 Respiratory rate 18 /min [facility] 02-05-2024 08:08-0400 SaO2% (BldA) [Mass fraction] 98 % [facility] 02-05-2024 08:08-0400 Systolic blood pressure 122 mm[Hg] [facility] 01-12-2024 14:32-0400 Body height 180.34 cm DO Ayanna Vicente Work Phone: [facility] 01-12-2024 14:32-0400 Body mass index (BMI) [Ratio] 30.9 kg/m2 DO Ayanna Vicente Work Phone: [facility] 01-12-2024 14:32-0400 Body temperature 98 [degF] DO Ayanna Vicente Work Phone: [facility] 01-12-2024 14:32-0400 Body weight 100.69 kg DO Ayanna Vicente Work Phone: [facility] 01-12-2024 14:32-0400 Heart rate 61 /min DO Ayanna Vicente Work Phone: [facility] 01-12-2024 14:32-0400 Respiratory rate 18 /min DO Ayanna Vicente Work Phone: [facility] 01-12-2024 14:32-0400 SaO2% (BldA) [Mass fraction] 91 % DO Ayanna Vicente Work Phone: [facility] 10-21-2023 14:45-0400 Body height 180.34 cm DO Ayanna Vicente Work Phone: [facility] 10-21-2023 14:45-0400 Body mass index (BMI) [Ratio] 32.5 kg/m2 DO Ayanna Vicente Work Phone: [facility] 10-21-2023 14:45-0400 Body temperature 97.5 [degF] DO Ayanna Vicente Work Phone: [facility] 10-21-2023 14:45-0400 Body weight 105.68 kg DO Ayanna Vicente Work Phone: [facility] 10-21-2023 14:45-0400 Diastolic blood pressure 76 mm[Hg] DO Ayanna Vicente Work Phone: [facility] 10-21-2023 14:45-0400 Respiratory rate 18 /min DO Ayanna Vicente Work Phone: [facility] 10-21-2023 14:45-0400 SaO2% (BldA) [Mass fraction] 92 % DO Ayanna Vicente Work Phone: [facility] 10-21-2023 14:45-0400 Systolic blood pressure 118 mm[Hg] DO Ayanna Vicente Work Phone: [facility] 08-12-2023 14:20-0500 Body height 180.34 cm [employer] Other [facility] 08-12-2023 14:20-0500 Body mass index (BMI) [Ratio] 32.21 kg/m2 [employer] Other [facility] [employer] Other 08-12-2023 14:20-0500 Body weight 104.78 kg [employer] Other [facility] [employer] Other 08-12-2023 14:20-0500 Body weight 104.77 kg DO Ayanna Vicente Work Phone: [facility] 04-15-2023 14:40-0400 Body height 180.34 cm Ayanna Vicente Other [facility] [employer] Other 04-15-2023 14:40-0400 Body mass index (BMI) [Ratio] 33.61 kg/m2 Ayanna Vicente Other [facility] [employer] Other 04-15-2023 14:40-0400 Body temperature 98.8 [degF] Ayanna Vicente Other [employer] Other 04-15-2023 14:40-0400 Body weight 109.32 kg Ayanna Vicente Other [employer] Other 04-15-2023 14:40-0400 Diastolic blood pressure 82 mm[Hg] Ayanna Vicente Other [employer] Other 04-15-2023 14:40-0400 Respiratory rate 18 /min Ayanna Vicente Other [employer] Other 04-15-2023 14:40-0400 SaO2% (BldA) [Mass fraction] 93 % Ayanna Vicente Other [employer] Other 04-15-2023 14:40-0400 Systolic blood pressure 128 mm[Hg] Ayanna Vicente Other [employer] Other 02-25-2023 14:40-0400 Body height 180.34 cm Ayanna Vicente Other [employer] Other 02-25-2023 14:40-0400 Body mass index (BMI) [Ratio] 32.91 kg/m2 Ayanna Vicente Other [employer] Other 02-25-2023 14:40-0400 Body temperature 97.9 [degF] Ayanna Vicente Other [employer] Other 02-25-2023 14:40-0400 Body weight 107.05 kg Ayanna Vicente Other [employer] Other 02-25-2023 14:40-0400 Diastolic blood pressure 84 mm[Hg] Ayanna Vicente Other [employer] Other 02-25-2023 14:40-0400 Respiratory rate 18 /min Ayanna Vicente Other [employer] Other 02-25-2023 14:40-0400 SaO2% (BldA) [Mass fraction] 94 % Ayanna Vicente Other [employer] Other 02-25-2023 14:40-0400 Systolic blood pressure 122 mm[Hg] Ayanna Vicente Other [employer] Other 02-11-2023 11:35-0400 Blood Pressure Location SUSAN RANDOLPH [facility] 02-11-2023 11:35-0400 Diastolic blood pressure 67 mm[Hg] SUSAN RANDOLPH [facility] 02-11-2023 11:35-0400 Heart rate 70 /min SUSAN RANDOLPH [facility] 02-11-2023 11:35-0400 Systolic blood pressure 100 mm[Hg] SUSAN RANDOLPH [facility] 02-07-2023 13:28-0400 Body height 177.8 cm Santos Lares MD Work Phone: [facility] 02-07-2023 13:28-0400 Body temperature 97.3 [degF] Santos Lares MD Work Phone: [facility] 02-07-2023 13:28-0400 Body weight 107.96 kg Santos Lares MD Work Phone: [facility] 02-07-2023 13:28-0400 Diastolic blood pressure 72 mm[Hg] Santos Lares MD Work Phone: [facility] 02-07-2023 13:28-0400 Heart rate 74 /min Santos Lares MD Work Phone: [facility] 02-07-2023 13:28-0400 Respiratory rate 20 /min Santos Lares MD Work Phone: [facility] 02-07-2023 13:28-0400 SaO2% (BldA) [Mass fraction] 93 % Santos Lares MD Work Phone: [facility] 02-07-2023 13:28-0400 Systolic blood pressure 122 mm[Hg] Santos Lares MD Work Phone: [facility] 07-19-2022 12:17-0500 Body height 177.8 cm Santos Lares MD Work Phone: [facility] 07-19-2022 12:17-0500 Body temperature 98.01 [degF] Santos Lares MD Work Phone: [facility] 07-19-2022 12:17-0500 Body weight 105.6 kg Santos Lares MD Work Phone: [facility] 07-19-2022 12:17-0500 Diastolic blood pressure 71 mm[Hg] Santos Lares MD Work Phone: [facility] 07-19-2022 12:17-0500 Heart rate 72 /min Santos Lares MD Work Phone: [facility] 07-19-2022 12:17-0500 Respiratory rate 16 /min Santos Lares MD Work Phone: [facility] 07-19-2022 12:17-0500 SaO2% (BldA) [Mass fraction] 93 % Santos Lares MD Work Phone: [facility] 07-19-2022 12:17-0500 Systolic blood pressure 111 mm[Hg] Santos Lares MD Work Phone: [facility] 04-18-2022 11:58-0400 Body height 177.8 cm Santos Lares MD Work Phone: [facility] 04-18-2022 11:58-0400 Body temperature 97.81 [degF] Santos Lares MD Work Phone: [facility] 04-18-2022 11:58-0400 Body weight 102.69 kg Santos Lares MD Work Phone: [facility] 04-18-2022 11:58-0400 Diastolic blood pressure 68 mm[Hg] Santos Lares MD Work Phone: [facility] 04-18-2022 11:58-0400 Heart rate 70 /min Santos Lares MD Work Phone: [facility] 04-18-2022 11:58-0400 Respiratory rate 16 /min Santos Lares MD Work Phone: [facility] 04-18-2022 11:58-0400 SaO2% (BldA) [Mass fraction] 99 % Santos Lares MD Work Phone: [facility] 04-18-2022 11:58-0400 Systolic blood pressure 127 mm[Hg] Santos Lares MD Work Phone: [facility] 04-04-2022 10:59-0400 Body height 177.8 cm Santos Lares MD Work Phone: [facility] 04-04-2022 10:59-0400 Body temperature 97.11 [degF] Santos Lares MD Work Phone: [facility] 04-04-2022 10:59-0400 Body weight 103.78 kg Santos Lares MD Work Phone: [facility] 04-04-2022 10:59-0400 Diastolic blood pressure 73 mm[Hg] Santos Lares MD Work Phone: [facility] 04-04-2022 10:59-0400 Heart rate 68 /min Santos Lares MD Work Phone: [facility] 04-04-2022 10:59-0400 Respiratory rate 16 /min Santos Lares MD Work Phone: [facility] 04-04-2022 10:59-0400 SaO2% (BldA) [Mass fraction] 95 % Santos Lares MD Work Phone: [facility] 04-04-2022 10:59-0400 Systolic blood pressure 138 mm[Hg] Santos Lares MD Work Phone: [facility] 04-02-2022 14:20-0400 Body height 180.34 cm Ayanna Vicente Other [employer] Other 04-02-2022 14:20-0400 Body mass index (BMI) [Ratio] 31.73 kg/m2 Ayanna Vicente Other [employer] Other 04-02-2022 14:20-0400 Body temperature 97.2 [degF] Ayanna Vicente Other [employer] Other 04-02-2022 14:20-0400 Body weight 103.19 kg Ayanna Vicente Other [employer] Other 04-02-2022 14:20-0400 Diastolic blood pressure 76 mm[Hg] Ayanna Vicente Other [employer] Other 04-02-2022 14:20-0400 Respiratory rate 18 /min Ayanna Vicente Other [employer] Other 04-02-2022 14:20-0400 SaO2% (BldA) [Mass fraction] 96 % Ayanna Vicente Other [employer] Other 04-02-2022 14:20-0400 Systolic blood pressure 120 mm[Hg] Ayanna Vicente Other [employer] Other 02-06-2022 14:20-0400 Body height 180.34 cm Ayanna Vicente Other [employer] Other 02-06-2022 14:20-0400 Body mass index (BMI) [Ratio] 31.94 kg/m2 Aynana Vicente Other [employer] Other 02-06-2022 14:20-0400 Body temperature 97.4 [degF] Ayanna Vicente Other [employer] Other 02-06-2022 14:20-0400 Body weight 103.87 kg Ayanna Vicente Other [employer] Other 02-06-2022 14:20-0400 Diastolic blood pressure 68 mm[Hg] Ayanna Vicente Other [employer] Other 02-06-2022 14:20-0400 Respiratory rate 18 /min Ayanna Vicente Other [employer] Other 02-06-2022 14:20-0400 SaO2% (BldA) [Mass fraction] 93 % Ayanna Vicente Other [employer] Other 02-06-2022 14:20-0400 Systolic blood pressure 114 mm[Hg] Ayanna Vicente Other [employer] Other 01-26-2022 05:00-0400 Body temperature 97.6 [degF] DO Ayanna Vicente Work Phone: [facility] 01-26-2022 05:00-0400 Diastolic blood pressure 77 mm[Hg] DO Ayanna Vicente Work Phone: [facility] 01-26-2022 05:00-0400 Heart rate 64 /min DO Ayanna Vicente Work Phone: [facility] 01-26-2022 05:00-0400 Respiratory rate 16 /min DO Ayanna Vicente Work Phone: [facility] 01-26-2022 05:00-0400 SaO2% (BldA) [Mass fraction] 94 % DO Ayanna Vicente Work Phone: [facility] 01-26-2022 05:00-0400 Systolic blood pressure 116 mm[Hg] DO Ayanna Vicente Work Phone: [facility] 01-23-2022 06:55-0400 Body height 177.8 cm DO Ayanna Vicente Work Phone: [facility] 01-20-2022 06:00-0400 Body weight 109.6 kg DO Ayanna Vicente Work Phone: [facility] 01-15-2022 17:00-0400 Body mass index (BMI) [Ratio] 33 kg/m2 DO Ayanna Vicente Work Phone: [facility] 01-15-2022 15:40-0400 Body temperature 97.9 [degF] DO Ayanna Vicente Work Phone: [facility] 01-15-2022 15:40-0400 Diastolic blood pressure 88 mm[Hg] DO Ayanna Vicente Work Phone: [facility] 01-15-2022 15:40-0400 Heart rate 72 /min DO Ayanna Vicente Work Phone: [facility] 01-15-2022 15:40-0400 Respiratory rate 18 /min DO Ayanna Vicente Work Phone: [facility] 01-15-2022 15:40-0400 SaO2% (BldA) [Mass fraction] 95 % DO Ayanna Vicente Work Phone: [facility] 01-15-2022 15:40-0400 Systolic blood pressure 128 mm[Hg] DO Ayanna Vicente Work Phone: [facility] 01-15-2022 05:11-0400 Body weight 107.9 kg DO Ayanna Vicente Work Phone: [facility] 01-13-2022 19:52-0400 Body height 177.8 cm DO Ayanna Vicente Work Phone: [facility] 01-13-2022 19:52-0400 Body mass index (BMI) [Ratio] 34.9 kg/m2 DO Ayanna Vicente Work Phone: [facility] 12-27-2021 11:10-0400 Body height 180.34 cm Ayanna Vicente Other [employer] [facility] [employer] Other 12-27-2021 11:10-0400 Body mass index (BMI) [Ratio] 33.12 kg/m2 Ayanna Earleabbi Other [employer] Other 12-27-2021 11:10-0400 Body temperature 97.3 [degF] Ayanna Vicente Other [employer] Other 12-27-2021 11:10-0400 Body weight 107.73 kg Ayanna Vicente Other [employer] Other 12-27-2021 11:10-0400 Diastolic blood pressure 82 mm[Hg] Ayanna Sakina Other [employer] Other 12-27-2021 11:10-0400 Respiratory rate 20 /min Ayanna Vicente Other [employer] Other 12-27-2021 11:10-0400 SaO2% (BldA) [Mass fraction] 93 % Ayanna Vicente Other [employer] Other 12-27-2021 11:10-0400 Systolic blood pressure 124 mm[Hg] Ayanna Earleabbi Other [employer] Other 12-17-2021 12:00-0400 Body height 180.34 cm Ayanna Milner Other [employer] Other 12-17-2021 12:00-0400 Body mass index (BMI) [Ratio] 32.21 kg/m2 Ayanna Milner Other [employer] Other 12-17-2021 12:00-0400 Body weight 104.78 kg Ayanna Alf Other [employer] Other 12-17-2021 12:00-0400 Diastolic blood pressure 56 mm[Hg] Ayanna Milner Other [employer] Other 12-17-2021 12:00-0400 Systolic blood pressure 98 mm[Hg] Ayanna Milner Other [employer] Other 04-04-2021 14:20-0400 Body height 180.34 cm Ayanna Sakina Other [employer] Other 04-04-2021 14:20-0400 Body mass index (BMI) [Ratio] 32.35 kg/m2 Ayanna Earleabbi Other [employer] Other 04-04-2021 14:20-0400 Body temperature 97.7 [degF] Ayanna Vicente Other [employer] Other 04-04-2021 14:20-0400 Body weight 105.24 kg Ayanna Vicente Other [employer] Other 04-04-2021 14:20-0400 Diastolic blood pressure 70 mm[Hg] Ayanna Vicente Other [employer] Other 04-04-2021 14:20-0400 Respiratory rate 18 /min Ayanna Vicente Other [employer] Other 04-04-2021 14:20-0400 SaO2% (BldA) [Mass fraction] 97 % Ayanna Vicente Other [employer] Other 04-04-2021 14:20-0400 Systolic blood pressure 114 mm[Hg] Ayanna Vicente Other [employer] Other Encounters Encounter Date Encounter Type Care Provider Facility Start: 10-27-2025 ambulatory Sujey Fernandez y:[facility] Start: 02-15-2025 End: 02-15-2025 ambulatory Ayanna Vicente DO Work Phone: [facility] Work Phone: Start: 02-15-2025 End: 02-15-2025 Patient encounter procedure Ayanna Vicente DO -[facility] [place] Work Phone: Start: 02-09-2025 Non-patient / Non-visit Cem Azul MD -[facility] Work Phone: Start: 02-08-2025 End: 02-08-2025 ambulatory SUSAN RANDOLPH Facility: [place] Start: 02-08-2025 End: 02-08-2025 Patient encounter procedure SUSAN RANDOLPH [facility] Start: 01-27-2025 End: 01-27-2025 ambulatory Ayanna Vicente DO Work Phone: [facility] Work Phone: Start: 01-27-2025 End: 01-27-2025 Patient encounter procedure Lesli Arevalo MD -[facility] Work Phone: Start: 01-19-2025 End: 01-19-2025 Telephone encounter Moe Edison Betts DO Work Phone: [facility] Start: 01-19-2025 End: 01-19-2025 Patient encounter procedure Moecyndie Flemingwicortney DO -[facility] Work Phone: Start: 01-19-2025 End: 01-19-2025 ambulatory Ayanna Vicente DO Work Phone: [facility] Work Phone: Start: 01-17-2025 Non-patient / Non-visit Lesli Arevalo MD -[facility] Work Phone: Start: 01-17-2025 End: 01-17-2025 ambulatory Som Azul MD Facility: [facility] Start: 01-12-2025 End: 01-12-2025 Office outpatient visit 15 minutes Moe Edison Wylietz DO Work Phone: [facility] Comment on above: Diarrhea, unspecifie d type (Primary Dx) Start: 01-12-2025 End: 01-12-2025 ambulatory MOE Edison ITZKOWITZ Not Available Start: 12-27-2024 End: 12-27-2024 ambulatory Som Azul MD Facility: [facility] Start: 12-20-2024 End: 12-20-2024 ambulatory Som Azul MD Facility:[facility] Start: 12-17-2024 End: 12-17-2024 Patient encounter procedure Zohaib German MD Work Phone: Rheumatology Comment on above: Fibromyalgia (Primar y Dx); Primary osteoarthritis involving multiple joints; Type 2 diabetes mellitus without complication, with long-term current use of insulin (HCC); Long-term use of Plaquenil Start: 12-17-2024 End: 12-17-2024 ambulatory AYANNA VICENTE Facility:[facility] Start: 12-16-2024 End: 12-16-2024 ambulatory [facility] Work Phone: Start: 12-16-2024 End: 12-16-2024 Patient encounter procedure [facility] Physician [facility] [place] Work Phone: Start: 11-17-2024 End: 11-17-2024 Telephone encounter Chad Freitas MD Work Phone: Cancer [facility] Comment on above: Records faxed Start: 11-10-2024 End: 11-10-2024 ambulatory [facility] Work Phone: Start: 11-10-2024 End: 11-10-2024 Patient encounter procedure [facility] Physician [facility] Family Medicine [place] Work Phone: Start: 11-01-2024 Non-patient / Non-visit [facility] Physician [facility] Work Phone: Start: 11-01-2024 End: 11-01-2024 ambulatory Som Azul MD Facility: [facility] Start: 10-11-2024 End: 10-11-2024 ambulatory Som Azul MD Facility: [facility] Start: 09-03-2024 End: 09-03-2024 ambulatory Ayanna Vicente Facility:[facility] Start: 09-03-2024 Non-patient / Non-visit Tad Ag DO Work Phone: [facility] Physician [facility] Work Phone: Start: 08-16-2024 End: 08-16-2024 ambulatory SUSAN RANDOLPH Facility: [place] Start: 08-16-2024 End: 08-16-2024 Patient encounter procedure SUSAN RANDOLPH [facility] [place] Start: 08-16-2024 End: 08-16-2024 ambulatory Som Azul MD Facility:[facility] Start: 08-11-2024 End: 08-11-2024 ambulatory Ayanna Vicente DO Work Phone: [facility] Work Phone: Start: 08-11-2024 End: 08-11-2024 Patient encounter procedure Ayanna Vicente DO Work Phone: [facility] Physician Group-[facility] Family Medicine [place] Work Phone: Start: 08-11-2024 Non-patient / Non-visit Ayanna Vicente DO Work Phone: [facility] Physician Group-[facility] [place] Work Phone: Start: 08-10-2024 End: 08-10-2024 ambulatory Ayanna Vicente DO Work Phone: [facility] Work Phone: Start: 08-10-2024 End: 08-10-2024 Departed Referred Ayanna Vicente DO Work Phone: [facility] [place] Work Phone: Start: 08-09-2024 End: 08-09-2024 Office outpatient visit 15 minutes Esvin Dubon [employer]ATE DEVELOPER Work Phone: [facility] AST[facility] Comment on above: Cognitive impairment (Primary Dx) Start: 08-09-2024 End: 08-09-2024 ambulatory ESVIN DUBON Not Available Start: 08-09-2024 End: 08-09-2024 Bamboo flowsheet Esvin Dubon PLATE DEVELOPER Work Phone: [facility] Start: 08-09-2024 End: 08-09-2024 Bamboo vera Dubon PLATE DEVELOPER Work Phone: [facility] Start: 08-04-2024 End: 08-04-2024 ambulatory ESVIN DUBON Not Available Start: 07-26-2024 End: 07-26-2024 ambulatory Som Azul MD Facility:[facility] Start: 07-12-2024 End: 07-12-2024 ambulatory Som Azul MD Facility:[facility] Start: 06-28-2024 End: 06-28-2024 Bamboo flowsheet Enrique Hammonds PhD Work Phone: [facility] Start: 06-28-2024 End: 06-28-2024 Bamboo flowsheet Enrique Hammonds PhD Work Phone: [facility] Start: 06-28-2024 End: 06-28-2024 Patient encounter procedure Enrique Hammonds PhD Work Phone: [facility] Comment on above: Memory loss (Primary Dx); Concentration deficit; Word finding difficulty; Other chronic pain; Family history of dementia Start: 06-28-2024 End: 06-28-2024 ambulatory ENRIQUE HAMMONDS Not Available Start: 06-23-2024 End: 06-23-2024 ambulatory MOE H ITZKOWITZ Not Available Start: 06-23-2024 End: 06-23-2024 Office outpatient visit 15 minutes Moe H Itzkowitz DO Work Phone: [facility] Comment on above: Diarrhea, unspecifie d type (Primary Dx); Constipation, unspecified constipation type Start: 06-22-2024 End: 06-22-2024 Clinisync Result Encounter Babita Guillaume DO Work Phone: [facility] External Department Unsolicited Start: 06-22-2024 End: 06-22-2024 Clinisync Result Encounter Babita Guillaume DO Work Phone: [facility] External Department Unsolicited Start: 06-22-2024 Non-patient / Non-visit Ayanna Vicente DO Work Phone: [facility] Work Phone: Start: 06-17-2024 End: 06-17-2024 Bamboo flowsheet Babita Guillaume DO Work Phone: [facility] [address] Start: 06-17-2024 End: 06-17-2024 Bamboo flowsheet Babita Guillaume DO Work Phone: [facility] [address] Start: 06-17-2024 End: 06-17-2024 Office outpatient new 45 minutes Babita Guillaume DO [facility] Phone[facility] Comment on above: Cognitive impairment (Primary Dx); Long-term use of high-risk medication Start: 06-17-2024 End: 06-17-2024 ambulatory BABITA GUILLAUME Not Available Start: 06-15-2024 Non-patient / Non-visit Ayanna Vicente DO Work Phone: [facility] Physician [facility] Work Phone: Start: 06-15-2024 End: 06-15-2024 ambulatory Triervin Vasquez Ancelmo Facility:[facility] Start: 06-15-2024 End: 06-15-2024 Departed Referred Ayanna Vicente DO Work Phone: [facility] Start: 06-14-2024 End: 06-14-2024 ambulatory [facility] Start: 06-08-2024 End: 06-08-2024 Chart abstracting Zohaib German MD Work Phone: Rheumatology Start: 06-07-2024 End: 06-07-2024 ambulatory [facility] Start: 05-26-2024 End: 05-26-2024 ambulatory AYANNA VICENTE Facility:[facility] Start: 05-26-2024 Non-patient / Non-visit Ayanna Vicente DO Work Phone: [facility] Work Phone: Start: 05-26-2024 End: 05-26-2024 Office outpatient visit 15 minutes Chad Freitas MD Work Phone: Hematology/Oncology Comment on above: CLL (chronic lymphoc ytic leukemia) (HCC) (Primary Dx) Start: 05-26-2024 End: 05-26-2024 Patient encounter procedure Ayanna Earleabbi DO Work Phone: [facility] [place] Work Phone: Start: 05-26-2024 End: 05-26-2024 ambulatory Ayanna Vicente DO Work Phone: [facility] Work Phone: Start: 05-18-2024 End: 05-18-2024 Patient encounter procedure DO Ayanna Vicente Work Phone: [facility] Work Phone: Start: 05-18-2024 End: 05-18-2024 ambulatory DO Ayanna Vicente Work Phone: [facility] Work Phone: Start: 05-17-2024 End: 05-17-2024 ambulatory ZOHAIB GERMAN Facility:[facility] Start: 05-17-2024 End: 05-17-2024 Patient encounter procedure Zohaib German MD Work Phone: Rheumatology Comment on above: 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); Fibromyalgia; Type 2 diabetes mellitus without complication, with long-term current use of insulin (HCC) Start: 05-12-2024 End: 05-12-2024 ambulatory DO Ayanna Ogabbi Work Phone: [facility] Work Phone: Start: 05-12-2024 End: 05-12-2024 Patient encounter procedure DO Ayanna Ogabbi Work Phone: [facility] Physician [facility] Work Phone: Start: 05-11-2024 End: 05-11-2024 ambulatory DO Ayanna Ogabbi Work Phone: [facility] Work Phone: Start: 05-11-2024 End: 05-11-2024 Patient encounter procedure DO Ayanna Vicente Work Phone: [facility] Physician [facility] Medicine [place] Work Phone: Start: 05-06-2024 End: 05-06-2024 Patient encounter procedure DO Ayanna Vicente Work Phone: [facility] [place] Work Phone: Start: 05-06-2024 End: 05-06-2024 ambulatory DO Ayanna Vicnete Work Phone: [facility] Work Phone: Start: 04-05-2024 End: 04-05-2024 ambulatory [facility] Work Phone: Start: 04-05-2024 End: 04-05-2024 Patient encounter procedure [facility] Physician [facility] [place] Work Phone: Start: 03-08-2024 End: 03-08-2024 ambulatory [facility] Work Phone: Start: 03-08-2024 End: 03-08-2024 Patient encounter procedure [facility] Physician [facility] Family [facility] [place] Work Phone: Start: 02-24-2024 End: 02-24-2024 ambulatory SUSAN RANDOLPH Facility:[facility] Start: 02-24-2024 End: 02-24-2024 Patient encounter procedure SUSAN RANDOLPH [facility] Start: 02-05-2024 End: 02-05-2024 ambulatory [facility] Work Phone: Start: 02-05-2024 End: 02-05-2024 Patient encounter procedure [facility] Physician [facility] [place] Work Phone: Start: 02-04-2024 Non-patient / Non-visit [facility] Physician [facility] Work Phone: Start: 02-03-2024 End: 02-03-2024 ambulatory JAMES SMITH Not Available Start: 01-12-2024 End: 01-12-2024 ambulatory DO Ayanna Vicente Work Phone: [facility] Work Phone: Start: 01-12-2024 End: 01-12-2024 Patient encounter procedure DO Ayanna Vicente Work Phone: [facility] Physician [facility] [place] Work Phone: Start: 10-21-2023 End: 10-21-2023 ambulatory DO Ayanna Vicente Work Phone: [facility] Work Phone: Start: 10-21-2023 End: 10-21-2023 Patient encounter procedure DO Ayanna Vicente Work Phone: [facility] Family [facility] [place] Work Phone: Start: 10-20-2023 Non-patient / Non-visit DO Aftab id Girabbi Work Phone: [facility] Work Phone: Start: 10-17-2023 End: 10-17-2023 ambulatory DO Ayanna Vicente Work Phone: [facility] Work Phone: Start: 10-17-2023 End: 10-17-2023 Patient encounter procedure DO Ayanna Vicenet Work Phone: [facility] [place] Work Phone: Start: 10-16-2023 Non-patient / Non-visit DO Aftab id Girvin Work Phone: [facility] Work Phone: Start: 10-13-2023 Non-patient / Non-visit DO Aftab id Girvin Work Phone: [facility] Work Phone: Start: 08-28-2023 Bamboo flowsheet James Umanzor thal DPM Work Phone: [facility] Start: 08-28-2023 Bamboo flowsheet James Umanzor smiley DPM Work Phone: [facility] Start: 08-28-2023 End: 08-28-2023 Patient encounter procedure James Luquenthal DPM Work Phone: [facility] Comment on above: Onychomycosis (Prima ry Dx); 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); Pain in both feet Start: 08-18-2023 End: 08-18-2023 ambulatory Homa Mckeon Other [employer] Other Start: 08-18-2023 Telephone encounter Homa Mckeon [facility] [employer] Start: 08-12-2023 End: 08-12-2023 ambulatory Homa Mckeon Other [employer] Other Start: 08-12-2023 Office outpatient ne w 45 minutes Homa Mckeon [facility] Start: 08-12-2023 End: 08-12-2023 Patient encounter procedure DO Ayanna Vicente Work Phone: [facility] Physician Group- Start: 07-16-2023 End: 07-16-2023 ambulatory Ayanna Vicente Other [employer] Other Start: 07-16-2023 Telephone encounter Ayanna Vicente [facility] [place] Start: 05-12-2023 End: 05-12-2023 ambulatory Junior Butterfield Other [employer] Other Start: 05-12-2023 Telephone encounter Junior Butterfield [facility] [employer] Start: 05-07-2023 End: 05-07-2023 ambulatory Ayanna Vicente Other [employer] Other Start: 05-07-2023 Telephone encounter Ayanna Vicente [facility] [place] Start: 04-29-2023 End: 04-29-2023 ambulatory Ayanna Vicente Other [employer] Other Start: 04-29-2023 Telephone encounter Ayanna Vicente [facility] [place] Start: 04-25-2023 End: 04-25-2023 ambulatory Ayanna Vicente Other [employer] Other Start: 04-25-2023 Telephone encounter Ayanna Vicente [facility] [place] Start: 04-24-2023 End: 04-24-2023 ambulatory DO Ayanna Vicente Work Phone: [facility] Work Phone: Start: 04-24-2023 End: 04-24-2023 Patient encounter procedure DO Ayanna Sakina Work Phone: [facility] [place] Work Phone: Start: 04-22-2023 End: 04-22-2023 ambulatory Ayanna Vicente Other [employer] Other Start: 04-22-2023 Telephone encounter Ayanna Vicente [facility] [place] Start: 04-15-2023 End: 04-15-2023 ambulatory Ayanna Vicente Other [employer] Other Start: 04-15-2023 Office outpatient vi sit 25 minutes Ayanna Vicente [facility] [place] Start: 04-14-2023 End: 04-14-2023 ambulatory Ayanna Vicente Other [employer] Other Start: 04-14-2023 Telephone encounter Ayanna Vicente [facility] [place] Start: 04-09-2023 End: 04-09-2023 ambulatory DO Ayanna Vicente Work Phone: [facility] Work Phone: Start: 04-09-2023 End: 04-09-2023 Patient encounter procedure DO Ayanna Vicente Work Phone: [facility] [place] Work Phone: Start: 02-25-2023 End: 02-25-2023 ambulatory Ayanna Vicente Other [employer] Other Start: 02-25-2023 Office outpatient vi sit 15 minutes Ayanna Vicente [facility] Family Medicine [place] Start: 02-11-2023 End: 02-11-2023 Patient encounter procedure SUSAN RANDOLPH [facility] [place] Start: 02-07-2023 End: 02-07-2023 ambulatory Santos Lares MD Work Phone: Hematology/Oncology Comment on above: CLL (chronic lymphoc ytic leukemia) (HCC) (Primary Dx) Start: 02-07-2023 End: 02-07-2023 Patient encounter procedure Santos Lares MD Work Phone: [facility] Start: 01-16-2023 End: 01-16-2023 ambulatory Ayanna Vicente Other [employer] Other Start: 01-16-2023 Telephone encounter Ayanna Vicente [facility] Family [facility] [place] Start: 01-15-2023 End: 01-15-2023 ambulatory Ayanna Vicente Other [employer] Other Start: 01-15-2023 Telephone encounter Ayanna Vicente [facility] [place] Start: 01-07-2023 End: 01-07-2023 ambulatory Ayanna Vicente Other [employer] Other Start: 01-07-2023 Telephone encounter Ayanna Vicente [facility] [place] Start: 01-06-2023 End: 01-06-2023 ambulatory Ayanna Vicente Other [employer] Other Start: 01-06-2023 Telephone encounter Ayanna Vicente [facility] [place] Start: 11-29-[address] AYANNA VICENTE Facilit y:H1 Start: 10-16-2022 End: 10-16-2022 ambulatory Ayanna Vicente Other [employer] Other Start: 10-16-2022 Telephone encounter Ayanna Vicente [facility] [place] Start: 10-02-2022 End: 10-02-2022 ambulatory Ayanna Vicente Other [employer] Other Start: 10-02-2022 Telephone encounter Ayanna Vicente [facility] Family [facility] [place] Start: 09-30-2022 End: 09-30-2022 ambulatory DO Ayanna Vicente Work Phone: [facility] Work Phone: Start: 09-30-2022 End: 09-30-2022 Patient encounter procedure DO Ayanna Vicente Work Phone: [facility] [place] Work Phone: Start: 09-24-2022 End: 09-24-2022 ambulatory DO Ayanna Vicente Work Phone: [facility] Work Phone: Start: 09-24-2022 End: 09-24-2022 Patient encounter procedure DO Ayanna Vicente Work Phone: [facility] [address] Work Phone: Start: 09-02-2022 End: 09-02-2022 ambulatory Ayanna Vicente Other [employer] Other Start: 09-02-2022 Telephone encounter Ayanna Sakina [facility] [place] Start: 08-29-2022 End: 08-29-2022 ambulatory DO Ayanna Sakina Work Phone: [facility] Work Phone: Start: 08-29-2022 End: 08-29-2022 Patient encounter procedure DO Ayanna Vicente Work Phone: [facility] Work Phone: Start: 08-29-2022 End: 08-29-2022 Patient encounter procedure DO Ayanna Vicente Work Phone: [facility] [address] Work Phone: Start: 08-12-2022 End: 08-12-2022 ambulatory DO Ayanna Vicente Work Phone: [facility] Work Phone: Start: 08-12-2022 End: 08-12-2022 Patient encounter procedure DO Ayanna Vicente Work Phone: [facility] [place] Work Phone: Start: 08-05-2022 End: 08-05-2022 ambulatory Ayanna Vicente Other [employer] Other Start: 08-05-2022 Telephone encounter Ayanna Vicente [facility] Medicine [place] Start: 08-02-2022 ambulatory Ayanna Vel Vicente Faci lity:[id number] Start: 07-24-2022 End: 07-24-2022 ambulatory DO Ayanna Vicente Work Phone: [facility] Work Phone: Start: 07-24-2022 End: 07-24-2022 Patient encounter procedure DO Ayanna Vicente Work Phone: [facility]ro[facility] Work Phone: Start: 07-19-2022 Telephone encounter [facility] Comment [facility]: Referral Information (ENT) Start: [...] Santos Lares MD Work Phone: [facility] Start: 05-31-2022 End: 05-31-2022 ambulatory Ayanna Vicente Other [employer] Other Start: 05-31-2022 Telephone encounter Ayanna Sakina [facility] Family [facility] [place] Start: 05-14-2022 End: 05-14-2022 ambulatory Ayanna Sakina Other [employer] Other Start: 05-14-2022 Telephone encounter Ayanna Vicente [facility] [place] Start: 04-24-2022 End: 04-24-2022 ambulatory Ayanna Vicente Other [employer] Other Start: 04-24-2022 Telephone encounter Ayanna Vicente [facility] [place] Start: 04-23-2022 Telephone encounter Ayanna Vicente [facility] [place] Start: 04-23-2022 End: 04-23-2022 ambulatory DO Ayanna Vicente Work Phone: [employer] Other Start: 04-23-2022 End: 04-23-2022 Patient encounter procedure DO Ayanna Vicente Work Phone: [facility] [place] Start: 04-18-2022 End: 04-18-2022 ambulatory Santos Lares MD Work Phone: Hematology/Oncology Comment on above: CLL (chronic lymphoc ytic leukemia) (HCC) (Primary Dx) Start: 04-18-2022 End: 04-18-2022 Patient encounter procedure Santos Lares MD Work Phone: [facility] Start: 04-10-2022 End: 04-10-2022 ambulatory Ayanna Vicente Other [employer] Other Start: 04-10-2022 Telephone encounter Ayanna Vicente [facility] [place] Start: 04-05-2022 Telephone encounter Niurka Hood Hematology/Oncology Comment on above: Care Coordination (R esults) Start: 04-04-2022 End: 04-04-2022 ambulatory Santos Lares MD Work Phone: Hematology/Oncology Comment on above: Lymphocytosis (Prima ry Dx) Start: 04-04-2022 End: 04-04-2022 Patient encounter procedure Santos Lares MD Work Phone: [facility] Start: 04-02-2022 End: 04-02-2022 ambulatory Ayanna Vicente Other [employer] Other Start: 04-02-2022 Office outpatient vi sit 40 minutes Ayanna Vicente [facility] [place] Start: 04-01-2022 End: 04-01-2022 Patient encounter procedure DO Ayanna Vicente Work Phone: [facility] [place] Start: 03-26-2022 End: 03-26-2022 ambulatory Ayanna Vicente Other [employer] Other Start: 03-26-2022 Telephone encounter Ayanna Vicente [facility] Family Medicine [place] Start: 03-19-2022 End: 03-19-2022 ambulatory Ayanna Vicente Other [employer] Other Start: 03-19-2022 Telephone encounter Ayanna Vicente [facility] [place] Start: 03-13-2022 End: 03-13-2022 ambulatory Ayanna Vicente Other [employer] Other Start: 03-13-2022 Telephone encounter Ayanna Vicente [facility] [place] Start: 03-08-2022 End: 03-08-2022 ambulatory Ayanna Vicente Other [employer] Other Start: 03-08-2022 Telephone encounter Ayanna Vicente [facility] Family [facility] [place] Start: 03-07-2022 End: 03-07-2022 ambulatory Ayanna Vicente Other [employer] Other Start: 03-07-2022 Telephone encounter Ayanna Vicente [facility] [place] Start: 02-28-2022 End: 02-28-2022 ambulatory Ayanna Vicente Other [employer] Other Start: 02-28-2022 Telephone encounter Ayanna Vicente [facility] Family [facility] [place] Start: 02-21-2022 End: 02-21-2022 ambulatory Ayanna Vicente Other [employer] Other Start: 02-21-2022 Telephone encounter Ayanna Vicente [facility] [place] Start: 02-18-2022 End: 02-18-2022 ambulatory Ayanna Vicente Other [employer] Other Start: 02-18-2022 Telephone encounter Ayanna Vicente [facility] [place] Start: 02-15-2022 End: 02-15-2022 ambulatory Ayanna Vicente Other [employer] Other Start: 02-15-2022 Telephone encounter Ayanna Vicente [facility] Family Medicine [place] Start: 02-11-2022 End: 02-11-2022 ambulatory Ayanna Vicente Other [employer] Other Start: 02-11-2022 Telephone encounter Ayanna Vicente [facility] Family Medicine [place] Start: 02-06-2022 End: 02-06-2022 ambulatory Ayanna Vicente Other [employer] Other Start: 02-06-2022 Office outpatient vi sit 25 minutes Ayanna Vicente [facility] [place] Start: 01-31-2022 End: 01-31-2022 ambulatory Ayanna Vicente Other [employer] Other Start: 01-31-2022 Telephone encounter Ayanna Vicente [facility] [place] Start: 01-15-2022 End: 01-26-2022 Evaluation and management of inpatient DO Ayanna Vicente Work Phone: [facility] Start: 01-13-2022 End: 01-15-2022 Evaluation and management of inpatient DO Ayanna Vicente Work Phone: [facility] Start: 01-07-2022 End: 01-07-2022 ambulatory Ayanna Vicente Other [employer] Other Start: 01-07-2022 Telephone encounter Ayanna Vicente [facility] [place] Start: 12-27-2021 End: 12-27-2021 ambulatory Ayanna Vicente Other [employer] Other Start: 12-27-2021 Office outpatient vi sit 15 minutes Ayanna Vicente [facility] Family Medicine [place] Start: 12-19-2021 End: 12-19-2021 ambulatory Ayanna Vicente Other [employer] Other Start: 12-19-2021 Telephone encounter Ayanna Vicente [facility] [place] Start: 12-18-2021 End: 12-18-2021 ambulatory Ayanna Milner Other [employer] Other Start: 12-18-2021 Telephone encounter Ayanna Milner [facility] Grader [facility] Start: 12-17-2021 End: 12-17-2021 ambulatory Ayanna Milner Other [employer] Other Start: 12-17-2021 Office outpatient ne w 45 minutes Ayanna Milner [facility] Gastroenterology Start: 11-12-2021 End: 11-12-2021 ambulatory Ayanna Vicente Other [employer] Other Start: 11-12-2021 Telephone encounter Ayanna Vicente [facility] [facility] [place] Start: 10-02-2021 End: 10-02-2021 ambulatory Ayanna Vicente Other [employer] Other Start: 10-02-2021 Telephone encounter Ayanna Vicente [facility] [place] Start: 10-01-2021 End: 10-01-2021 ambulatory Ayanna Vicente Other [employer] [place] Other Start: 10-01-2021 Telephone encounter Ayanna Ogabbi [facility] [place] [place] Start: 09-17-2021 End: 09-17-2021 ambulatory Ayanna Vicente Other [employer] Other Start: 09-17-2021 Telephone encounter Ayanna Vicente [facility] [place] Start: 09-13-2021 End: 09-13-2021 ambulatory Ayanna Vicente Other [employer] Other Start: 09-13-2021 Telephone encounter Ayanna Vicente [facility] [place] Start: 09-12-2021 End: 09-12-2021 ambulatory Ayanna Vicente Other [employer] Other Start: 09-12-2021 Telephone encounter Ayanna Vicente [facility] [facility] [place] Start: 07-18-2021 End: 07-18-2021 ambulatory Ayanna Vicente Other [employer] Other Start: 07-18-2021 Telephone encounter Ayanna Vicente [facility] [place] [facility] [place] Start: 06-18-2021 End: 06-18-2021 ambulatory Ayanna Vicente Other [employer] Other Start: 06-18-2021 Telephone encounter Ayanna Vicente [facility] [place] [facility] [place] Start: 04-24-2021 Telephone encounter Ayanna Vicente [facility] [place] [facility] [place] Start: 04-04-2021 Office outpatient vi sit 25 minutes Ayanna Vicente [facility] [place] [facility] [place] Start: 02-08-2021 End: 02-08-2021 Orders Only Dale [...] repair SUSAN RANDOLPH Start: 07-14-1995 Appendectomy SUSAN P ERRY Start: 07-14-1991 History of hernia repair SUSAN [...] DTaP,Tdap,Td Vaccine (2 - Td or Tdap) [facility] Start: 05-26-2027 Diabetes Screening Diabetes Screenin g [facility] Start: 08-08-2026 [facility] Start: 02-07-2026 DIABETES SCREEN DIABETES SCREEN [facility] Start: 12-19-2025 End: 12-19-2025 Patient encounter procedure 12/19/2025 11:00 AM EDT Office Visit Rheumatology [address] [place] [address] [place] [id number] [facility] [place], [place] [id number] Return in about 1 year (around 12/17/2025). Rheumatology Comment on above: Return in about 1 ye ar (around 12/17/2025). Start: 07-19-2025 DIABETES SCREEN DIABETES SCREEN [facility] Start: 03-14-2025 Influenza vaccination Influenza Vacc ine (#1) [facility] Start: 01-28-2025 End: 01-28-2025 Patient encounter procedure 01/28/2025 10:30 AM EDT Office Visit [facility] [address] [place] [phone] Moe Betts DO [address] [facility] [address] [place] [address] EL BERUMEN Start: 11-25-2024 End: 11-25-2024 Patient encounter procedure 11/25/2024 11:20 AM EDT Office Visit Rheumatology [address] [place] [address] [place] [id number] [facility] [place] [address] 6 month follow up Rheumatology Comment on above: 6 month follow up Start: 11-24-2024 End: 11-24-2024 Follow-up encounter 11/24/2024 10:30 AM EDT Visit (SP) Office Hematology/Oncology [address] [place] [address] Chad Freitas MD [address] [place] [address] 6 month follow up Hematology/Oncology Comment on above: 6 month follow up Start: 11-24-2024 End: 11-24-2024 Patient encounter procedure 11/24/2024 10:15 AM EDT Office Visit [facility] [address] [place] [place] [address] 6 month follow up [facility] Comment on above: 6 month follow up Start: 11-15-2024 End: 11-15-2024 Patient encounter procedure 11/15/2024 11:00 AM EDT Office Visit Rheumatology [address] [facility] [place] [address] [place] [id number] [facility] [place] [address] 6 month follow up Rheumatology Comment on above: 6 month follow up Start: 11-10-2024 Patient referral [facility] Work Phone: Start: 09-16-2024 Covid-19 Vaccine ( season) Covid-19 Vaccine () [facility] Start: 09-03-2024 Urine culture [facility] Start: 08-10-2024 Bacteria identified in Urine by Culture Urine Culture [facility] Start: 08-10-2024 End: 08-10-2024 Urine culture [facility] Start: 08-09-2024 End: 08-09-2024 Patient encounter procedure [facility] Comment on above: Arrived Start: 08-04-2024 End: 08-04-2024 Patient encounter procedure 08/04/2024 11:30 AM EST Office Visit [facility] [address] [facility] [address] [place] [phone] [facility] Start: 07-14-2024 Advance Directive Discussion Advance Directive Discussion [facility] Start: 06-28-2024 End: 06-28-2024 Patient encounter procedure [facility] Comment on above: Cognitive impairment Start: 06-23-2024 End: 06-23-2024 Patient encounter procedure 06/23/2024 2:30 PM EST Consult [facility] [address] [facility] [address] [place] [phone] Moe Betts DO [address] [facility] [address] [place] [address] [facility] Start: 06-17-2024 End: 06-17-2025 Cobalamin (Vitamin B12) [Mass/volume] in Serum or Plasma Vitamin B12 Lab Routine Cognitive impairment Long-term use of high-risk medication Expected: 06/17/2024 (Approximate), Expires: 06/17/2025 [facility] Work Phone: Comment on above: Expected: 06/17/2024 (Approximate), Expires: 06/17/2025 Start: 06-17-2024 End: 06-17-2024 Patient encounter procedure 06/17/2024 2:00 PM EST Office Visit [facility] [address] [place] [phone] AundreaBabita schmidtDO [address] [place] [id number] Arrived [facility] Comment on above: Arrived Start: 06-17-2024 End: 06-17-2025 Thyrotropin [Units/volume] in Serum or Plasma TSH Lab Routine Cognitive impairment Long-term use of high-risk medication Expected: 06/17/2024 (Approximate), Expires: 06/17/2025 [facility] Comment on above: Expected: 06/17/2024 (Approximate), Expires: 06/17/2025 Start: 05-11-2024 Patient referral [facility] Work Phone: Start: 05-06-2024 Bacteria identified in Urine by Culture Urine Culture [facility] Start: 04-05-2024 Patient referral [facility] Work Phone: Start: 02-05-2024 Patient referral [facility] Work Phone: Start: 11-17-2023 End: 11-17-2023 Patient encounter procedure 11/17/2023 1:15 PM EDT Procedure Visit [facility] [address] [place] [phone] James Smith DPM [address] [place] [address] [facility] Start: 10-17-2023 Bacteria identified in Urine by Culture [facility] Start: 08-18-2023 Shingrix Vaccine (2 of 2) Rodriguez grix Vaccine (2 of 2) [facility] Start: 08-10-2023 End: 10-10-2023 CBC W Auto Differential panel - Blood CBC + DIFF Lab Routine CLL (chronic lymphocytic leukemia) (HCC) Expected: 08/10/2023 (Approximate), Expires: 10/10/2023 [facility] Work Phone: Comment on above: Expected: 08/10/2023 (Approximate), Expires: 10/10/2023 Start: 08-10-2023 End: 10-10-2023 Comprehensive metabolic 2000 panel - Serum or Plasma COMP METABOLIC PANEL Lab Routine CLL (chronic lymphocytic leukemia) (HCC) Expected: 08/10/2023 (Approximate), Expires: 10/10/2023 [facility] Work Phone: Comment on above: Expected: 08/10/2023 (Approximate), Expires: 10/10/2023 Start: 07-14-2023 Advance Directive Discussion Advance Directive Discussion [facility] Start: 03-14-2023 Influenza vaccination [facility] Start: 01-16-2023 End: 03-18-2023 CBC W Auto Differential panel - Blood CBC + DIFF Lab Routine CLL (chronic lymphocytic leukemia) (HCC) Expected: 01/16/2023 (Approximate), Expires: 03/18/2023 [facility] Work Phone: Comment on above: Expected: 01/16/2023 (Approximate), Expires: 03/18/2023 Start: 01-16-2023 End: 03-18-2023 Comprehensive metabolic 2000 panel - Serum or Plasma COMP METABOLIC PANEL Lab Routine CLL (chronic lymphocytic leukemia) (HCC) Expected: 01/16/2023 (Approximate), Expires: 03/18/2023 [facility] Work Phone: Comment on above: Expected: 01/16/2023 (Approximate), Expires: 03/18/2023 Start: 08-19-2022 COVID-19 VACCINE (5 - Pfizer series) COVID-19 VACCINE (5 - Pfizer series) [facility] Start: 07-26-2022 End: 08-18-2023 Us breast uni real time with image limited US BREAST LTD LT Radiology Routine Axillary adenopathy Other signs and symptoms in breast Expected: 07/26/2022, Expires: 08/18/2023 [facility] Work Phone: Comment on above: Expected: 07/26/2022 , Expires: 08/18/2023 Start: 07-19-2022 End: 09-18-2022 CBC W Auto Differential panel - Blood CBC + DIFF Lab Routine CLL (chronic lymphocytic leukemia) (HCC) Expected: 07/19/2022 (Approximate), Expires: 09/18/2022 [facility] Work Phone: Comment on above: Expected: 07/19/2022 (Approximate), Expires: 09/18/2022 Start: 07-19-2022 End: 09-18-2022 Comprehensive metabolic 2000 panel - Serum or Plasma COMP METABOLIC PANEL Lab Routine CLL (chronic lymphocytic leukemia) (HCC) Expected: 07/19/2022 (Approximate), Expires: 09/18/2022 [facility] Work Phone: Comment on above: Expected: 07/19/2022 (Approximate), Expires: 09/18/2022 Start: 07-19-2022 End: 09-18-2022 Lactate dehydrogenase [Enzymatic activity/volume] in Serum or Plasma LD LACTATE DEHYDRO Lab Routine CLL (chronic lymphocytic leukemia) (HCC) Expected: 07/19/2022 (Approximate), Expires: 09/18/2022 [facility] Work Phone: Comment on above: Expected: 07/19/2022 (Approximate), Expires: 09/18/2022 Start: 07-14-2022 ADVANCE DIRECTIVE DISCUSSION ADVANCE DIRECTIVE DISCUSSION [facility] Start: 07-14-2022 DEPRESSION ASSESSMENT DEPRESSION ASS ESSMENT [facility] Start: 04-04-2022 End: 06-04-2022 [id number] [Mass/volume] in Serum or Plasma [facility] Work Phone: Comment on above: Expected: 04/04/2022 , Expires: 06/04/2022 Start: 04-04-2022 End: 06-04-2022 Chronic hepatitis differentiation between hepatitis B and C virus panel - Serum or Plasma [facility] Work Phone: Comment on above: Expected: 04/04/2022 , Expires: 06/04/2022 Start: 04-04-2022 End: 06-04-2022 FLOW CYTOMETRY PERIPHERAL BLOOD LEUK/LYMPH (FCLEUK) [facility] Work Phone: Comment on above: Expected: 04/04/2022 , Expires: 06/04/2022 Start: 03-14-2022 Influenza vaccination INFLUENZA (#1) [facility] Start: 01-24-2022 [facility] Start: 01-21-2022 Consultation [facility] Start: 01-15-2022 Hospital admission [facility] Start: 01-15-2022 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 to clinical crew leader/control room operator [facility] Start: 01-15-2022 [facility] Work Phone: Start: 01-13-2022 Hospital admission [facility] Work Phone: Start: 07-27-2021 COVID-19 VACCINE (4 - Booster for Pfizer series) COVID-19 VACCINE (4 - Booster for Pfizer series) [facility] Start: 07-14-2021 ADVANCE DIRECTIVE DISCUSSION ADVANCE DIRECTIVE DISCUSSION [facility] Start: 07-14-2021 DEPRESSION ASSESSMENT DEPRESSION ASS ESSMENT [facility] Start: 03-14-2021 Influenza vaccination INFLUENZA (#1) [facility] Start: 2007 ADVANCE DIRECTIVE DISCUSSION ADVANCE DIRECTIVE DISCUSSION [facility] Start: 2007 BONE DENSITY BONE DENSITY [facility] Start: 2007 PNEUMOCOCCAL: 65+ (1 - PCV) PNEUMOCOCCAL: 65+ (1 - PCV) [facility] Start: 2007 PNEUMOVAX AGE 65 AND OVER WITH 5YR LOOKBACK (#1) PNEUMOVAX AGE 65 AND OVER WITH 5YR LOOKBACK (#1) [facility] Start: 2007 Screening for osteoporosis Bone Density Screening [facility] Start: 1992 Screening for malign ant neoplasm of colon [facility] Start: 1992 SHINGRIX VACCINE (1 of 2) RODRIGUEZ GRIX VACCINE (1 of 2) [facility] Start: 1987 DIABETES SCREEN DIABETES SCREEN [facility] Start: 1961 SHINGRIX VACCINE (1 of 2) RODRIGUEZ GRIX VACCINE (1 of 2) [facility] Start: 1961 Urine microalbumin profile DTAP,TDAP,TD (1 - Tdap) [facility] Start: 1960 Anxiety Screening Anxiety Screening [facility] Start: 1960 Depression Screening Depression Scre ening [facility] Start: 1960 Hepatitis B surface antibody level LDL Cholesterol [facility] Start: 1960 HEPATITIS C SCREENING HEPATITIS C SC BLANCA [facility] Start: 1954 Adult depression screening assessment DEPRESSION SCREENING [facility] Start: 1954 COVID-19 VACCINE (1) COVID-19 VACCIN E (1) [facility] Start: 1952 Diabetic foot examination Diabetic F oot Exam [facility] Start: 1952 Glaucoma screening Dilated Retinal E xam [facility] Start: 1952 Hepatitis B screening Urine Albumin:Creatinine Ratio [facility] Start: 1948 PNEUMOCOCCAL: 65+ (1 - PCV) PNEUMOCOCCAL: 65+ (1 - PCV) [facility] Start: 1947 Hemoglobin A1c measurement HbA1C [facility] Bacteria identified in Urine by Culture [facility] CBC W Auto Different ial panel - Blood CBC + DIFF Lab Routine Lymphocytosis 04/04/2022 11:00 AM T [facility] Work Phone: CBC W Auto Different ial panel - Blood COMPLETE BLOOD COUNT AND DIFFERENTIAL Lab Routine CLL (chronic lymphocytic leukemia) (HCC) 05/26/2024 2:20 PM EST [facility] Work Phone: Comprehensive metabo lic 1999 panel - Serum or Plasma [facility] Comprehensive metabo lic 1999 panel - Serum or Plasma [facility] Comprehensive metabo lic 1999 panel - Serum or Plasma [facility] FLOW CYTOMETRY PERIP HERAL BLOOD LEUK/LYMPH (FCLEUK) FLOW CYTOMETRY PERIPHERAL BLOOD LEUK/LYMPH (FCLEUK) Lab Routine Lymphocytosis 04/04/2022 11:02 AM T [facility] Work Phone: FLOW SLIDE FLOW SLIDE Lab R outine Lymphocytosis 04/04/2022 11:02 AM [facility] Work Phone: Glucose measurement estimated from glycated hemoglobin [facility] Hepatitis B virus co re Ab [Presence] in Serum HEP B CORE AB TOTAL Lab Routine Lymphocytosis 04/04/2022 11:00 AM [facility] Work Phone: Hepatitis B virus noe rface Ab [Presence] in Serum HEP B SURF AB QUAL Lab Routine Lymphocytosis 04/04/2022 11:00 AM EDT [facility] Work Phone: Hepatitis B virus noe rface Ab [Presence] in Serum by Immunoassay HEP B SURF AG SCRN Lab Routine Lymphocytosis 04/04/2022 11:00 AM EDT [facility] Work Phone: Hepatitis C virus Ab [Presence] in Serum HEP C AB IA W/CONF SCRN Lab Routine Lymphocytosis 04/04/2022 11:00 AM EDT [facility] Work Phone: End: 08-18-2023 SONYA SCREENING W NEYDA SONYA SCREENING W NEYDA Radiology Routine Encounter for screening mammogram for malignant neoplasm of breast 1 Occurrences starting 07/19/2022 until 08/18/2023 [facility] Work Phone: Comment on above: 1 Occurrences starti ng 07/19/2022 until 08/18/2023 MG Breast - bilatera l Screening [facility] MG Breast - bilatera l Screening [facility] Patient Education Wrist Fracture (DC) [facility] Work Phone: Patient referral [facility] Work Phone: End: 03-10-2022 Radiologic exam knee complete 4/more views XR KNEE GENERAL 4V AP BOTH/PA BOTH/LAT/MERC BILAT Radiology Routine Pain in both knees, unspecified chronicity 1 Occurrences starting 02/08/2021 until 03/10/2022 [facility] Comment on above: 1 Occurrences starti ng 02/08/2021 until 03/10/2022 End: 03-10-2022 Radiologic examination pelvis 1/2 views XR PELVIS 1V AP Radiology Routine Pain in both knees, unspecified chronicity 1 Occurrences starting 02/08/2021 until 03/10/2022 [facility] Comment on above: 1 Occurrences starti ng 02/08/2021 until 03/10/2022 Renal function 2000 panel - Serum or Plasma [facility] Renal function 1999 panel - Serum or Plasma [facility] Serum fructosamine measurement [facility] Work Phone: Urine culture [facility] Urine culture [facility] US Kidney - bilateral [facility] XR Hip - left 2 Views [facility] XR Knee - left 4 Views [facility] End: 08-18-2023 XR RIBS/CHEST 3V AP RIB/OBLS/CXR LEFT XR RIBS/CHEST 3V AP RIB/OBLS/CXR LEFT Radiology Routine Rib pain 1 Occurrences starting 07/19/2022 until 08/18/2023 [facility] Work Phone: Comment on above: 1 Occurrences starti ng 07/19/2022 until 08/18/2023 [facility] Immunizations Immunization Date Immunization Notes Care Provider Fa cility 03-19-2024 COVID-19 (PFIZER) 12Y and older Ayanna Vicente DO Work Phone: [facility] 03-19-2024 influenza virus vaccine, unspecified formulation SUSAN JAX [facility] 03-19-2024 influenza, high dose seasonal, preservative-free Ayanna Vicente DO Work Phone: [facility] 06-23-2023 COVID-19 (PFIZER) 12Y and older [facility] 06-23-2023 Pneumococcal Conjuga te Vaccine, 20 valent [facility] 06-23-2023 RSV, preF3, adj, pf [facility] 06-23-2023 zoster vaccine recombinant [facility] 04-15-2023 influenza, high dose seasonal, preservative-free Ayanna Vicente Other [employer] Other 04-15-2023 Fluzone QIV High-Dos e 65YR+ [facility] 04-15-2023 influenza virus vaccine, unspecified formulation James Smith DPM Work Phone: [facility] 04-22-2022 pneumococcal polysaccharide vaccine, 23 valent Ayanna Vicente Other [facility] 04-18-2022 COVID-19 mRNA Bivale nt Booster (Pfizer) [facility] 01-13-2022 tetanus toxoid, redu paola diphtheria toxoid, and acellular pertussis vaccine, adsorbed Ayanna Vicente Other [facility] 06-01-2021 COVID-19 Vaccine Pfi zer - Documentation Purposes Only Ayanna Vicente Other [facility] 04-25-2021 influenza virus vaccine, unspecified formulation SUSAN RANDOLPH [facility] 04-04-2021 influenza, high dose seasonal, preservative-free Ayanna Vicetne Other [employer] Other 04-04-2021 influenza virus vaccine, unspecified formulation DO Ayanna Vicente Work Phone: [facility] 04-04-2021 Influenza, High-dose Seasonal, Quadrivalent, Preservative Free James Smith DPM Work Phone: [facility] 09-01-2020 COVID-19 Vaccine Pfi zer - Documentation Purposes Only Ayanna Vicente Other [facility] 09-01-2020 SARS-CoV-2 (COVID-19 ) mRNA-1273 vaccine SUSAN RANDOLPH [facility] 08-11-2020 COVID-19 Vaccine Pfi zer - Documentation Purposes Only Ayanna Vicente Other [facility] 08-11-2020 SARS-CoV-2 (COVID-19 ) mRNA-1273 vaccine SUSAN JAX [facility] 03-14-2020 influenza virus vaccine, unspecified formulation SUSAN RANDOLPH [facility] 07-14-2019 pneumococcal conjuga te vaccine, 13 valent [facility] 04-03-2019 influenza virus vaccine, unspecified formulation SUSAN RANDOLPH [facility] 04-03-2019 Seasonal trivalent influenza vaccine, adjuvanted, preservative free [facility] 04-03-2019 pneumococcal polysaccharide vaccine, 23 valent Ayanna Vicente Other [facility] 04-03-2019 influenza, seasonal, injectable Ayanna Vicente Other [facility] 05-25-2018 influenza virus vaccine, unspecified formulation SUSAN RANDOLPH [facility] 05-25-2018 Influenza, injectabl e, Madin Anjelica Canine Kidney, preservative free, quadrivalent [facility] 05-25-2018 influenza, seasonal, injectable Ayanna Vicente Other [facility] 04-22-2018 Kenalog -40 mg Ayanna Vicente Other [employer] Other Payers Date Payer Category Payer Self-pay [id number] 2022 Unknown [id number] 2020 Private Health Insurance [facility] AARP SUPPLEMENT [id number] 2020-Present Indemnity [id number] 2020 Private Health Insurance [id number] 2007 Medicare MEDICARE MEDICAR E A AND B [id number] 2007-Present [place] Medicare [id number] 2007 Medicare [id number] .[id number] 1959 Medicare [id number] 2.16.840.1.602233.19 1959 Unknown [id number] 2.16.840.1.574737.19 1942 Unknown [id number] 2.16.840.1.369177.3.579.2 .356 1942 Unknown [id number] 2.16.840.1.628062.3.579.2 .593 1942 Unknown [id number] 2.16.840.1.142557.3.579.2 .1259 1942 Unknown [id number] 2.16.840.1.882407.3.579.2 .1259 1942 Unknown [id number] 2.16.840.1.162972.3.579.2 .1259 1942 Unknown [id number] 2.16.840.1.822583.3.579.2 .1259 1942 Unknown [id number] 2.16.840.1.530798.3.579.2 .1259 1942 Unknown [id number] 2.16.840.1.533607.3.579.2 .1259 1942 Unknown [id number] 2.16.840.1.352151.3.579.2 .1259 1942 Unknown [id number] 2.16.840.1.213471.3.579.2 .727 1942 Unknown [id number] 2.16.840.1.177280.3.579.2 .727 1942 Unknown [id number] 2.16.840.1.826838.3.579.2 .727 1942 Unknown [id number] 2.16.840.1.157494.3.579.2 .727 1942 Unknown [id number] 2.16.840.1.039305.3.579.2 .196 1942 Unknown [id number] 2.16.840.1.560601.3.579.2 .196 1942 Unknown [id number] 2.16.840.1.621770.3.579.2 .196 1942 Unknown [id number] 2.16.840.1.292690.3.579.2 .196 1942 Unknown [id number] 2.16.840.1.427932.3.579.2 .196 1942 Unknown [id number] 2.16.840.1.380176.3.579.2 .196 1942 Unknown [id number] 2.16.840.1.622014.3.579.2 .196 1942 Unknown [id number] 2.16.840.1.733316.3.579.2 .196 1942 Unknown [id number] 2.16.840.1.528737.3.579.2 .196 1942 Unknown [id number] 2.16.840.1.279516.3.579.2 .196 Unknown [id number] 2.16.840.1.177062.3.579.2 .531 Unknown [id number] Unknown [id number] Unknown [id number] Unknown [id number] Unknown [id number] Unknown [id number] Social History Date Type Detail Facility Start: 02-20-2004 End: 12-16-2024 Tobacco smoking status MNIS Former smoker [facility] Comment on above: quit smoking in 1984 Start: 07-14-1979 End: 07-14-1999 History of tobacco use Current smoker [facility] Work Phone: Start: 02-20-2004 Alcohol intake Not Asked [facility] Start: 1940 Sex Assigned At Not on file C [facility] Start: 02-07-2023 End: 01-12-2025 Sex Assigned At [facility] Start: 1940 Sex Assigned At Female F [facility] Start: 07-14-1979 End: 07-14-1999 History of tobacco use Cigarette Smoker [facility] Start: 04-04-2022 End: 01-12-2025 Cigarettes smoked current (pack per day) - Reported 1.5 [facility] Start: 04-04-2022 End: 12-17-2024 Tobacco use and exposure Smokeless tobacco non-user [facility] Start: 04-04-2022 End: 12-17-2024 Alcohol intake Ex-drinker (finding) [facility] Start: 03-25-2022 End: 04-18-2022 Exposure to SARS-CoV-2 (event) Not sure [facility] Adult Depression Screening Assessment 0 [facility] Comment on above: quit smoking in 1984 Start: 12-07-2022 Tobacco smoking stat [email or web address]IS Never smoked tobacco [facility] Start: 08-21-2023 End: 01-12-2025 Alcohol intake Current drinker of alcohol (finding) [facility] Start: 12-07-2022 Alcohol Comment Alcohol: 1-2 d rinks occasionally. Caffeine: 3-4 cups/day coffee [facility] Start: 05-27-2024 End: 12-16-2024 Sex Female (finding) [facility] Sexual Orientation [facility] Medical Equipment Procedure Code Equipment Code Equipment [...] ALLOGRAFT FUSELO X LUMBAR FDA Start: 03-24-2017 [place] One Level Deformity FDA Start: 03-24-2017 CANCELLOUS [...] ALLOGRAFT FUSELO X LUMBAR FDA Start: 03-24-2017 [place] One Level Deformity FDA Start: 03-24-2017 CANCELLOUS [...] ALLOGRAFT FUSELO X LUMBAR FDA Start: 03-24-2017 [place] One Level Deformity FDA Start: 03-24-2017 CANCELLOUS [...] ALLOGRAFT FUSELO X LUMBAR FDA Start: 03-24-2017 [place] One Level Deformity FDA Start: 03-24-2017 CANCELLOUS [...] ALLOGRAFT FUSELO X LUMBAR FDA Start: 03-24-2017 [place] One Level Deformity FDA Start: 03-24-2017 CANCELLOUS [...] ALLOGRAFT FUSELO X LUMBAR FDA Start: 03-24-2017 [place] One Level Deformity FDA Start: 03-24-2017 CANCELLOUS [...] ALLOGRAFT FUSELO X LUMBAR FDA Start: 03-24-2017 [place] One Level Deformity FDA Start: 03-24-2017 CANCELLOUS 15CC CRUSHED FDA Start: 03-24-2017 CROSSLINK CAPLOX II MED/LG FDA Start: 09-11-2017 NUVASIVE LOCK SCREWS FDA Star t: 03-24-2017 [...] ALLOGRAFT FUSELO X LUMBAR FDA Start: 03-24-2017 [place] One Level Deformity FDA Start: 03-24-2017 CANCELLOUS [...] ALLOGRAFT FUSELO X LUMBAR FDA Start: 03-24-2017 [place] One Level Deformity FDA Start: 03-24-2017 CANCELLOUS [...] ALLOGRAFT FUSELO X LUMBAR FDA Start: 03-24-2017 [place] One Level Deformity FDA Start: 03-24-2017 CANCELLOUS [...] ALLOGRAFT FUSELO X LUMBAR FDA Start: 03-24-2017 [place] One Level Deformity FDA Start: 03-24-2017 CANCELLOUS [...] ALLOGRAFT FUSELO X LUMBAR FDA Start: 03-24-2017 [place] One Level Deformity FDA Start: 03-24-2017 CANCELLOUS [...] ALLOGRAFT FUSELO X LUMBAR FDA Start: 03-24-2017 [place] One Level Deformity FDA Start: 03-24-2017 CANCELLOUS [...] ALLOGRAFT FUSELO X LUMBAR FDA Start: 03-24-2017 [place] One Level Deformity FDA Start: 03-24-2017 CANCELLOUS [...] ALLOGRAFT FUSELO X LUMBAR FDA Start: 03-24-2017 [place] One Level Deformity FDA Start: 03-24-2017 CANCELLOUS [...] ALLOGRAFT FUSELO X LUMBAR FDA Start: 03-24-2017 [place] One Level Deformity FDA Start: 03-24-2017 CANCELLOUS [...] ALLOGRAFT FUSELO X LUMBAR FDA Start: 03-24-2017 [place] One Level Deformity FDA Start: 03-24-2017 CANCELLOUS [...] ALLOGRAFT FUSELO X LUMBAR FDA Start: 03-24-2017 [place] One Level Deformity FDA Start: 03-24-2017 CANCELLOUS [...] ALLOGRAFT FUSELO X LUMBAR FDA Start: 03-24-2017 [place] One Level Deformity FDA Start: 03-24-2017 CANCELLOUS [...] ALLOGRAFT FUSELO X LUMBAR FDA Start: 03-24-2017 [place] One Level Deformity FDA Start: 03-24-2017 CANCELLOUS [...] ALLOGRAFT FUSELO X LUMBAR FDA Start: 03-24-2017 [place] One Level Deformity FDA Start: 03-24-2017 CANCELLOUS [...] ALLOGRAFT FUSELO X LUMBAR FDA Start: 03-24-2017 [place] One Level Deformity FDA Start: 03-24-2017 CANCELLOUS [...] ALLOGRAFT FUSELO X LUMBAR FDA Start: 03-24-2017 [place] One Level Deformity FDA Start: 03-24-2017 CANCELLOUS [...] ALLOGRAFT FUSELO X LUMBAR FDA Start: 03-24-2017 [place] One Level Deformity FDA Start: 03-24-2017 CANCELLOUS [...] ALLOGRAFT FUSELO X LUMBAR FDA Start: 03-24-2017 [place] One Level Deformity FDA Start: 03-24-2017 CANCELLOUS [...] ALLOGRAFT FUSELO X LUMBAR FDA Start: 03-24-2017 [place] One Level Deformity FDA Start: 03-24-2017 CANCELLOUS [...] ALLOGRAFT FUSELO X LUMBAR FDA Start: 03-24-2017 [place] One Level Deformity FDA Start: 03-24-2017 CANCELLOUS [...] ALLOGRAFT FUSELO X LUMBAR FDA Start: 03-24-2017 [place] One Level Deformity FDA Start: 03-24-2017 CANCELLOUS [...] 08-16-2024 Functional Status N/A [facility] 02-24-2024 Functional Status N/A [facility] 02-11-2023 Functional Status N/A [facility] 01-26-2022 Functional status Patient is Pro gressing [facility]ard [facility] Work Phone: Mental Status Date Assessment Result Facility 01-26-2022 Cognitive function Cognitive Sta tus Patient at [facility] Work Phone: Clinical Notes 04-04-2021 to 02-08-2025 Telephone Encounter - Moe Betts, DO - 01/19/2025 4:35 PM EDTTelephone Encounter - Moe Hogan Ankitcabreramandie, DO - 01/19/2025 4:35 PM EDTFredmaunel Hogan Ankitkasiacortney, DO - 01/12/2025 1:30 PM EDT Note Date & Type Note Facility 02-08-2025 Hospital Discharge instructions Patient Education 02/08/2025 09:23:28 Overactive Bladder, Adult [...] your health care provider. General instructions Take knyd-oen-hrfapkn and prescription medicines only as told by [...] provider. Document Revised: 03/19/2021 Document Reviewed: 03/19/2021 [employer] Patient Education 2023 Sensee. Follow Up Care 08/16/2024 09:56:41 With:Follow up in Spring Address:Unknown When: Unknown [facility] 02-08-2025 Note Patient Education Obstetrics and Gynecology Overactive Bladder, [...] other factors, such as: ??? Medical conditions: ? Urinary tract infection. ? Infection of nearby tissues. ? Prostate enlargement. ? Bladder stones, inflammation, or tumors. ? Diabetes. ? Muscle or nerve weakness, especially from these conditions: ? A spinal cord injury. ? Stroke. ? Multiple sclerosis. ? Parkinson's disease. ??? Other causes: ? Surgery on the uterus [...] may include: ??? Bladder training, such as: ? Learning to control the urge to urinate by following a schedule to urinate at regular intervals. ? Doing Kegel exercises to strengthen the pelvic floor muscles that support your bladder. ??? Special devices, such as: ? Biofeedback. This [...] supports the bladder. ??? Medicines, such as: ? Antibiotics to treat bladder infection. ? Antispasmodics to stop the bladder from releasing urine at the wrong time. ? Tricyclic antidepressants to relax bladder muscles. ? Injections of botulinum toxin type A directly into the bladder tissue to relax bladder muscles. ??? Surgery, such as: ? A device may [...] health care provider. General instructions ??? Take sbkb-vbj-xurnpqy and prescription medicines only as told by [...] how much and when you drink, and whe (more content not included)... [facility] 01-19-2025 Telephone encounter Note Marci had an attempt at a colonoscopy today, but I was not able to pass the scope beyond the sigmoid colon. I set her up for an air contrast BE which was completed today and showed diverticulosis without mass or filling defect. I called her with the results and will cancel her follow up appointment. Her diarrhea may be related to her medications. I'll see her PRN. [facility] 01-19-2025 Miscellaneous Notes Marci had an attempt at a colonoscopy today, but I was not able to pass the scope beyond the sigmoid colon. I set her up for an air contrast BE which was completed today and showed diverticulosis without mass or filling defect. I called her with the results and will cancel her follow up appointment. Her diarrhea may be related to her medications. I'll see her PRN. documented in this encounter [facility] 01-12-2025 History of Present illness Narrative Images from [...] urethra 3x per week for UTI prevention, [facility] #[facility], 178, cm, 08/16/24 9:10:00 EST, Height/Length [...] replacement OTHER SURGICAL HISTORY 1999 fissure repair RI REPAIR SLIDING INGUINAL HERNIA Hernia, inguinal TOTAL [...] 5' 9 Wt 225 lb BMI 33.23 kg/m Smoking Status Never BSA 2.23 m Physical Exam HENT: Head: Normocephalic. Cardiovascular: Rate [...] I asked the patient not to drive, operate any machinery or make any important decisions on the day of the procedure. The patient is in agreement and arrangements for colonoscopy have been made. documented in this encounter [facility] 12-17-2024 History of Present illness Narrative Images from the original note were not included. 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 There have not been any new health [...] Reviewed on 05/26/2024 Name Date COVID-19 vaccine (Consult A Doctor-BIONTSiSense) 03/19/2024, 06/23/2023 COVID-19 vaccine, bivalent (Consult A Doctor-BIONTSiSense) 04/18/2022 COVID-19 vaccine, monovalent (Consult A Doctor-BIONTSiSense) 06/01/2021, 09/01/2020, 08/11/2020 Physical Exam GENERAL APPEARANCE: [...] Plan Orders this visit: Office Visit on 06/06/25 hydrOXYchloroQUINE (PLAQUENIL) 200 mg tablet Discussed current [...] which included preparing to see the patient, xtxa-ot-tyqc patient care, completing clinical documentation, obtaining and/or reviewing separately obtained history, performing a medically appropriate examination, counseling and educating the patient/family/caregiver, and ordering medications, tests, or procedures. Medical Decision Making: Problems: Moderate: 1+ chronic illnesses with change Risk: High: High risk from testing/treatment Medical Decision Making Level: 4 - Moderate Zohaib German MD Rheumatology Date: December 17, 2024 Time: 10:27 AM documented in this encounter [facility] 12-17-2024 Note HNO ID: [id number] Author: ZOHAIB GERMAN MD Service: ? 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 There have not been any new health [...] REPLACEMENT Bilateral 2011 Family History FAMILY HISTORY (more content not included)... [facility] 12-16-2024 Evaluation note Diagnosis Onset Date Resolution Chronic kidney disease, stage 3b acute December 16, 2024 2 :13pm Hyperkalemia acute December 16 2:13pm Hypertensive chronic 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 4 chronic ki acute December 16, 2024 2 :13pm Type 2 diabetes mellitus with diabetic chronic kidney disease acute December 16, 2024 2:13pm HLD (hyperlipidemia) chronic December 16, 2024 2:13pm Vitamin D deficiency chronic December 16, 2024 2:13pm Chronic kidney disease, stage 3b acute January 27, 2025 1:47pm Hyperkalemia acute January 27, 2 025 1:47pm Hypertensive chronic 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 4 chronic ki acute January 27, 2025 1:47pm Type 2 diabetes mellitus with diabetic chronic kidney disease acute January 1:47pm HLD (hyperlipidemia) chronic January 27, 2025 1:47pm Vitamin D deficiency chronic January 27, 2025 1:47pm Hydradenitis acute February 15, 2025 2:43pm Lumbar degenerative disc disease acute February 15, 2025 2:43pm Neuropathy acute February 15 2:43pm Overactive bladder acute February 15, 2025 2:43pm Diabetes chronic February 15 2:43pm [facility] Work Phone: [phone]) 483-396905-07-2025 Telephone encounter Note* Telephone Encounter - Susan Caballero - 11/17/2024 2:35 PM EDT Records faxed to Dr. Silva [phone]. I called Roxie to let her know they were faxed. [facility]05-07-2025 Miscellaneous Notes* Telephone Encounter - Susan Caballero - 11/17/2024 2:35 PM EDT Records faxed to Dr. Silva [phone]. I called Roxie to let her know they were faxed. * Telephone Encounter - Lori Renner - 11/17/2024 11:[address] Zena DREW Received a call from patient caregiver Roxie Bhagat. She stated that patient would like to cancel her upcoming appointment with Dr Paredes on 11/24 due to patient is going to be following with Dr Silva @ [facility] as this is closer to home for patient. Roxie requested to talk to medical records regarding having records sent to Dr Silva transferred call To Heather Todd. Lori Callahan [facility] Telephone encounter Note * Telephone Encounter - Lori Renner - 11/17/2024 11:[address] Zena DREW Received a call from patient caregiver Roxie Bhagat. She stated that patient would like to cancel her upcoming appointment with Dr Paredes on 11/24 due to patient is going to be following with Dr Silva @ [facility] as this is closer to home for patient. Roxie requested to talk to medical records regarding having records sent to Dr Silva transferred call To Heather Todd. Lori Callahan [facility]04-30-2025 Evaluation note* Author Ayanna Vicente [facility] Authored November 10, 2024 4:5 1pm The above note written by __ _Melanie Conde____ acting as human recorder, note dictated by Dr. Slater .I performed the above HPI, ROS, and Examination. I formulated and dictated the treatment plan and was present for entire encounter. Ayanna Vicente D.O. [facility] Work Phone: [phone] Hospital Discharge instructionsAmbulatory Orders* Referral to Hematology Time Frame: 11/10/24, Location: None Selected * Referral to Nephrology Time Frame: 11/10/24, Location: None Selected [facility] Work Phone: [phone] 147-861702-03-2025 Hospital Discharge instructions Patient Education 08/16/2024 10:04:56 Antibiotic Medicine, [...] start to feel better. If you stop takingthem too soon: You may feel sick again. [...] as soon as possible. Do not take doubleor extra doses. What are the risks of [...] in the future with bacteria that do notrespond to medicine (antibiotic-resistant infection). Antibiotics can cause bacteria to change so that if the antibiotic is taken again, the medicine cannot kill the bacteria. These infections can bemore serious because they are hard, or sometimes [...] your antibiotics unless told otherwise. Drink enough fluidto keep your urine pale yellow. Ask your [...] provider. Document Revised: 01/28/2023 Document Reviewed: 01/28/2023 [employer] Patient Education 2023 Sensee. Follow Up Care 08/11/2024 14:41:18 With:JAX BECKMAN, SUSAN Miller, URL Address: [address] [place] [address] When:Within 6 Month(s) [facility] 02-03-2025 NotePatient Education Caregiving Antibiotic Medicine, Adult Antibiotic medicines [...] start to feel better. If you stop takingthem too soon: ??? You may feel sick [...] as soon as possible. Do not take doubleor extra doses. What are the risks of [...] in the future with bacteria that do notrespond to medicine (antibiotic-resistant infection). Antibiotics can cause bacteria to change so that if the antibiotic is taken again, the medicine cannot kill the bacteria. These infections can bemore serious because they are hard, or sometimes [...] your health care provider. Do not use antibioticsprescribed for someone else. ??? Drink a large [...] care provider. Do not stop taking your antibioticseven if you start to feel better. ??? [...] ??? You have sig (more content not included)...[facility] 08-11-2024 Evaluation note* Author Ayanna Vicente [facility] Authored August 11, 2024 1 :46pm The above note written by __ _Melanie Conde____ acting as human recorder, note dictated by Dr. Slater .I performed the above HPI, ROS, and Examination. I formulated and dictated the treatment plan and was present for entire encounter. Aaynna Vicente D.O. [facility] Work Phone: [phone]) 164-621901-27-2025 History of Present illness Narrative* Esvin Dubon NP - 08/09/2024 2:20 PM EST Images from the original note were not included. Chief Complaint Patient presents with Cognitive Impairment Subjective Kathy Car Washburn, 84 y.o., female Patient is here [...] of right knee joint replacement 2009 Leukemia (CMS/HCC) Neuropathy IDDM Past Surgical History: Procedure Laterality Date BACK SURGERY 2015 COLONOSCOPY 2013 COLONOSCOPY 2002 JOINT REPLACEMENT Left 08/2011 knee replacement; Dr. Haque JOINT REPLACEMENT Right 2009 knee replacement OTHER SURGICAL HISTORY 1999 fissure repair RI REPAIR SLIDING INGUINAL HERNIA Hernia, inguinal TOTAL [...] place and time. Previous [place] cognitive assessment: Language is fluent without [...] , wrist extensors , wrist flexor , poultry offal worker strength 5/5. LUE Strength deltoid , biceps , triceps , wrist extensors , wrist flexor , poultry offal worker strength 5/5. RLE Strength illopsoas, quadriceps, tibialis [...] knee reflex 0. Hdz's sign negative. Coordination: Lmyynj-fz-uezm testing is normal Rapid alternating movements are [...] on 06/22/2024: TSH 2.632 (wnl), B12 [address] [place] cognitive assessment at [facility] on 06/17/2024: 29/30 MRI of the brain at [facility] on 07/04/18: Mild age-related changes and atrophy [...] of mental health issues documented in this encounterWashington University Medical [id number] History of Present illness Narrative* Enrique Hammonds, [...] No history of alcohol/substance abuse. Reformed smoker. [place] language [place]. Completed a master's degree. 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 and currently lives alone. Because of one [...] PRN incontinence, #90 tab(s), Refills(s) 3, Pharmacy: [facility] #72, 178, cm, 02/11/23 11:43:00 EDT, Height/Length [...] of this individual. Please contact me with Nitro at [phone]. 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 Caffeine: 3-4 cups/day coffee Past Surgical History: Procedure Laterality Date BACK SURGERY 2016 COLONOSCOPY 2013 COLONOSCOPY 2002 JOINT REPLACEMENT Left 08/2011 knee replacement; Dr. Haque JOINT REPLACEMENT Right 2009 knee replacement OTHER SURGICAL HISTORY 1999 fissure repair RI REPAIR SLIDING INGUINAL HERNIA Hernia, inguinal TOTAL ABDOMINAL HYSTERECTOMY W/ BILATERAL SALPINGOOPHORECTOMY 1986 FAMILY HISTORY Family History Problem Relation Name [...] to have the scope. documented in this encounterWashington University Medical [id number] History of Present illness Narrative* Babita Guillaume [...] of right knee joint replacement 2009 Leukemia (CMS/HCC) Neuropathy IDDM Past Surgical History: Procedure Laterality Date BACK SURGERY 2016 COLONOSCOPY 2014 COLONOSCOPY 2002 JOINT REPLACEMENT Left 08/2011 knee replacement; Dr. Haque JOINT REPLACEMENT Right 2010 knee replacement OTHER SURGICAL HISTORY 1999 fissure repair RI REPAIR SLIDING INGUINAL HERNIA Hernia, inguinal TOTAL [...] , wrist extensors , wrist flexor , poultry offal worker strength 5/5. LUE Strength deltoid , biceps , triceps , wrist extensors , wrist flexor , poultry offal worker strength 5/5. RLE Strength illopsoas, quadriceps, tibialis [...] knee reflex 0. Hdz's sign negative. Coordination: Phchle-vc-kirs testing and rapid alternating movements are normal Gait: Normal Review and summary of old records: [place] cognitive assessment at [facility] on 06/17/2024: Assessment/Plan Diagnoses and all orders for this visit: Cognitive impairment It is my impression that the patient has cognitive feelings of memory impairment. There have been some instances where she has forgotten appointments and lost track of what she is doing. Her [place] assessment is actually quite strong at . She does also mentioned feeling out of [...] of mental health issues documented in this encounterWashington University Medical [id number] NoteHNO ID: [id number] Author: YOUNG HERRERA LPN Service: ? Author Type: LICENSED NURSE Type: Progress Notes Filed: 06/08/2024 13:05 Note Text: Eye exam for Plaquenil toxicity received from [facility] . Exam date was 06/07/2024. Exam shows no signs of Plaquenil toxicity. Forms sent for scanning.[facility]11-26-2024 History of Present illness Narrative* Young Herrera LPN - 06/08/2024 1:05 PM EST Eye exam for Plaquenil toxicity received from [facility] . Exam date was 06/07/2024. Exam shows no signs of Plaquenil toxicity. Forms sent for scanning. documented [facility]Pro[facility] Instructions* Patient Instructions* Chad Freitas MD - 05/26/2024 2:09 PM EST Labs today F/u in 6 months [place] [address]-13-2024 History of Present illness Narrative* Chad Freitas MD - 05/26/2024 2:00 PM EST Images from the original note were not included. PATIENT NAME: Kathy Washburn CLINIC NO.: [id number] ATTENDING PHYSICIAN: Chad Freitas MD DATE OF [...] sweats - Did mammogram last week at [facility]. - Scheduled to see Shearing Machine Operator PAST MEDICAL HISTORY Diagnosis Date Depression Diabetes [...] Range Status 08/08/2023 2.0 % Final Abs [place] Date Value Ref Range Status 08/08/2023 0.39 [...] do not hesitate to contact me at [phone]. Chad Freitas MD Hematology/Medical Oncology [facility] spent a total of 20 minutes on the date of the service which included preparing to see the patient, ogyc-zt-rwnc patient care, completing clinical documentation, obtaining and/or reviewing separately obtained history, counseling and educating the patient/family/caregiver, and ordering medications, tests, or procedures. CC: Ayanna Vicente DO documented in this encounterProtestant [facility]acon[facility] Hospital11-13-2024 NoteHNO ID: [id number] Author: CHAD FREITAS MD Service: ? Author Type: Physician Type: Progress Notes Filed: 05/26/2024 14:41 Note Text: PATIENT NAME: Kathy Washburn CLINIC NO.: [id number] ATTENDING PHYSICIAN: Chad Frietas MD DATE OF SERVICE: 05/25/24 Some of [...] sweats - Did mammogram last week at [facility]. - Scheduled to see Shearing Machine Operator PAST MEDICAL HISTORY Diagnosis Date Depression Diabetes [...] Date Value Ref Range (more content not included)...[facility] 05-17-2024 NoteHNO ID: [id number] Author: ZOHAIB GERMAN MD Service: ? Author Type: Physician Type: Progress Notes Filed: 05/17/2024 13:34 Note Text: Rheumatology Outpatient Clinic Date of Service: 05/17/2024 Patient: Kathy Washburn Medical Record: [id number] Primary Care Physician: Ayanna Vicente DO Last Rheumatology visit: None at [facility] Referring Provider: No referring provider defined [...] unit/mL injection Inject subcutaneously (more content not included)...[facility]11-04-2024 History of Present illness Narrative* Zohaib German MD - 05/17/2024 12:56 PM EST Images from the original note were not included. Rheumatology Outpatient Clinic Date of Service: 05/17/2024 Patient: Kathy Washburn Medical Record: [id number] Primary Care Physician: Ayanna Vicente DO Last Rheumatology visit: None at [facility] Referring Provider: No referring provider defined [...] Reviewed on 07/19/2022 Name Date COVID-19 vaccine ([employer]) 03/19/2024, 06/23/2023 COVID-19 vaccine, bivalent (Consult A Doctor-BIONTSiSense) 04/18/2022 COVID-19 vaccine, monovalent (PFIZER-BIONTSiSense) 06/01/2021, 09/01/2020, 08/11/2020 Physical Exam GENERAL APPEARANCE: [...] without complication, with long-term current use of insulin([facility]) Plan Orders this visit: Office Visit on [...] which included preparing to see the patient, attb-hc-cfuv patient care, completing clinical documentation, obtaining and/or [...] 2024 Time: 12:56 PM documented in this encounterProtest[facility]10-29-[facility] Hospital Discharge instructionsAmbulatory Orders* Referral to Neurology Time Frame: 05/11/24, Location: None Selected [facility] Work Phone: 1(997) 899-245108-26-2024 Evaluation note* Author Ayanna [facility] Authored March 08, 2024 3: 24pm The above note written by __ _Melanie Conde____ acting as human recorder, note dictated by Dr. Slater .I performed the above HPI, ROS, and Examination. I formulated and dictated the treatment plan and was present for entire encounter. Ayanna Vicente D.O. Author [facility] Authored February 05, 2024 9:11 am The above note written by __ _Melanie Conde____ acting as human recorder, note dictated by Dr. Slater .I performed the above HPI, ROS, and Examination. I formulated and dictated the treatment plan and was present for entire encounter. Ayanna Vicente D.O. [facility] Work Phone: 1(753) 205-113208-26-2024 Evaluation note* Author Ayanna [facility] Authored March 08, 2024 3: 24pm The above note written by __ _Melanie Conde____ acting as human recorder, note dictated by Dr. Slater .I performed the above HPI, ROS, and Examination. I formulated and dictated the treatment plan and was present for entire encounter. Ayanna Vicente D.O. Author [facility] Authored April 05, 2024 10:47am The above note written by __ _Melanie Conde____ acting as human recorder, note dictated by Dr. Slater .I performed the above HPI, ROS, and Examination. I formulated and dictated the treatment plan and was present for entire encounter. Ayanna Vicente D.O. [facility] Work Phone: 1(393) 130-961408-26-2024 Evaluation note* Author Ayanna [facility] Authored March 08, 2024 3: 24pm The above note written by __ _Melanie Conde____ acting as human recorder, note dictated by Dr. Slater .I performed the above HPI, ROS, and Examination. I formulated and dictated the treatment plan and was present for entire encounter. Ayanna Vicente D.O. Author [facility] Authored May 11, 2024 3 :30pm The above note written by __ _Melanie Conde____ acting as human recorder, note dictated by Dr. Slater .I performed the above HPI, ROS, and Examination. I formulated and dictated the treatment plan and was present for entire encounter. Ayanna Vicente D.O. Author [facility] Authored April 05, 2024 10:47am The above note written by __ _Melanie Conde____ acting as human recorder, note dictated by Dr. Slater .I performed the above HPI, ROS, and Examination. I formulated and dictated the treatment plan and was present for entire encounter. Ayanna Vicente D.O. [facility] Work Phone: 1(877) 348-164508-26-2024 Evaluation note* Author Ayanna [facility] Authored March 08, 2024 2: 24pm The above note written by __ _Melanie Conde____ acting as human recorder, note dictated by Dr. Slater .I performed the above HPI, ROS, and Examination. I formulated and dictated the treatment plan and was present for entire encounter. Ayanna Vicente D.O. Author [facility] Authored May 11, 2024 2 :30pm The above note written by __ _Melanie Conde____ acting as human recorder, note dictated by Dr. Slater .I performed the above HPI, ROS, and Examination. I formulated and dictated the treatment plan and was present for entire encounter. Ayanna Vicente D.O. Author Ayanna Vicente [facility] Authored April 05, 2024 9:47am The above note written by __ _Melanie Conde____ acting as human recorder, note dictated by Dr. Slater .I performed the above HPI, ROS, and Examination. I formulated and dictated the treatment plan and was present for entire encounter. Ayanna Vicente D.O. [facility] Work Phone: 1(768) 182-848808-13-2024 Hospital Discharge instructions Patient Education 02/24/2024 10:42:26 [...] your health care provider. General instructions Take tcqx-its-vwayhrh and prescription medicines only as told by [...] provider. Document Revised: 03/19/2021 Document Reviewed: 03/19/2021 [employer] Patient Education 2022 Sensee. Follow Up Care 02/11/2023 12:11:14 With:JAX BECKMAN, SUSAN Miller, URL Address: [address] [place] [address] [phone] When: Unknown Comments:6 mos (no labs) [facility] 08-13-2024 NotePatient Education Obstetrics and [...] health care provider. General instructions ? Take yscr-wfj-asmylth and prescription medicines only as told by [...] help your health care (more content not included)...[facility]07-25-2024 Evaluation note* Author Ayanna Vicente [facility] Authored February 05, 2024 9:11 am The above note written by __ _Melanie Conde____ acting as human recorder, note dictated by Dr. Slater .I performed the above HPI, ROS, and Examination. I formulated and dictated the treatment plan and was present for entire encounter. Ayanna Vicente D.O. [facility] Work Phone: 1(420) 798-155904-09-2024 Evaluation note* Author Ayanna Vicente [facility] Authored October 21, 2023 4:11 pm The above note written by __ _Melanie Conde____ acting as human recorder, note dictated by Dr. Slater .I performed the above HPI, ROS, and Examination. I formulated and dictated the treatment plan and was present for entire encounter. Ayanna Vicente D.O. [facility] Work Phone: 1(402) 316-270002-15-2024 History of Present illness Narrative* James Smith, NICOLASA - 08/28/2023 1:45 PM EST Images from [...] 150 Interested in diabetic shoes/inserts Dispensed Kandy [id number] in Purple, size 11 M on 04/11/22. [...] open areas were noted. documented in this encounterWashington University Medical [id number] Evaluation note* Encounter Date Diagnosis Assessment Notes [...] sacroiliac steroidal injection. Refer the patient to [facility] for aqua therapy. Discuss with primary care physician, Dr. Vicente, about prescribing a steroid prednisone for temporary relief during the patient's cruise, in the event unable to see painmanagment before vacation. Order a lidocaine patch for the patient to use on the sacroiliac and hip area for pain relief.Recommend owpk-hax-oohgtnu Thermacare or heat patches to use alongside the lidocaine patch. 3. 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 Monitor the degeneration and consider a preventative approach. Encourage the patient to take Tylenol arthritis for overall help. 4. Bone density: - Plan: Dexa scan within normal limits. Jul, Pain in left hip (ICD-10 - M25.552) Jul, Sacroiliac inflammation (ICD-10 - M46.1) Jul, Cervical pain (ICD-10 - M54.2) Jul, DDD (degenerative disc disease), lumbar (ICD-10 - M51.36) [employer] Other 01-03-2024 Evaluation note* Encounter Date Diagnosis [...] to see we discussed her seeing [facility] and she would like to start with [...] She will continue to monitor her memory. [facility] Other 10-03-2023 Evaluation note* Encounter Date Diagnosis [...] s he has about immunizations were answered. [employer] [employer] Other 10-02-2023 Evaluation note* Encounter Date Diagnosis Assessment Notes Treatment Notes Treatment Clinical Notes Apr, Insomnia (ICD-10 - G47.00) Apr, Neuropathy (ICD-10 - G62.9) [facility] Other 08-15-2023 Evaluation note* Encounter Date Diagnosis [...] Feb, Lumbar disc disease (ICD-10 - M51.9) [facility] Other 08-01-2023 Hospital Discharge instructions Patient Education [...] your health care provider. General instructions Take ceqb-lox-zwirjcj and prescription medicines only as told by [...] provider. Document Revised: 03/19/2021 Document Reviewed: 03/19/2021 [employer] Patient Education 2022 Sensee. Follow Up Care 01/23/2023 15:26:59 With:SUSAN RANDOLPH PA-C, URL Address: [address] [place] [address] When: Unknown [facility] 07-28-2023 History of Present illness Narrative* Santos Lares MD - 02/07/2023 1:38 PM EDT Images from the original note were not included. PATIENT NAME: Kathy Washburn CLINIC NO.: [id number] ATTENDING PHYSICIAN: Santos Lares MD DATE OF [...] Range Status 07/19/2022 5.0 % Final Abs [place] Date Value Ref Range Status 07/19/2022 0.84 [...] do not hesitate to contact me at [phone]. aSntos Lares MD Hematology/Medical Oncology [facility] spent a total of 30 minutes on the date of the service which included preparing to see the patient, pkhb-ev-gppr patient care, completing clinical documentation, obtaining and/or reviewing separately obtained history, counseling and educating the patient/family/caregiver, and ordering medications, tests, or procedures. CC: Ayanna Vicente DO documented in this encounterProtestant Deaconess Hospital06-27-2023 Evaluation note* Encounter Date Diagnosis Assessment [...] prescription of Cipro when she was in [place], she finds that her symptoms seem to happen when she is traveling. We discussed her seeing Dr. El for evaluation due to recurrent urine infections. She voices that she has not contacted that office but will do this. Dec, Other 1:43 PM - 1:59 PM [facility] Other 06-26-2023 Evaluation note* Encounter Date Diagnosis Assessment Notes Treatment Notes Treatment Clinical Notes Dec, Hyperlipidemia (ICD-10 - E78.5) [facility] [employer] Other 04-05-2023 Evaluation note* Encounter Date Diagnosis Assessment Notes Treatment Notes Treatment Clinical Notes Oct, Neuropathy (ICD-10 - G62.9) [facility] [employer] Other 03-22-2023 Evaluation note* Encounter Date Diagnosis Assessment Notes Treatment Notes Treatment Clinical Notes Sep, Insomnia (ICD-10 - G47.00) [facility] Other 03-22-2023 Evaluation note* Encounter Date Diagnosis [...] to see her blood sugars below 90. [place] sugar readings are in the 120's. 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 Sep, Insomnia (ICD-10 - G47.00) We discussed [...] has not driven past any local towns ([place] She did have a cardiac work up [...] abuse treatments are being prescribed. Sep, Other fci (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 therapy (ICD-10 - Z79.899) Sep, [...] had an MRI of her neck done. [facility] [employer] Other 01-09-2023 Miscellaneous Notes* Telephone Encounter - [...] our office. * Telephone Encounter - Lisa Geren RN - 07/22/2022 11:12 AM EST Pt [...] RN * Telephone Encounter - Susan Todd [facility] - 07/19/2022 2:21 PM EST Records faxed to Dr. Ly. * Telephone Encounter - Susana Grant - 07/19/2022 1:21 PM EST Referral to Dr. Ly for Right ear pain. Heather/Royer: Can you please send information and follow up? Manuel Romero put information in your mailbox forreferral. Thank you! Susana Grant documented in this encounterProtestant Deaconess Hospital01-06-2023 History of Present illness Narrative* Santos Lares MD - 07/19/2022 12:34 PM EST PATIENT NAME: Kathy Washburn CLINIC NO.: [id number] ATTENDING PHYSICIAN: Santos Lares MD DATE OF [...] 11.45 (H) 1.00 - 4.00 k/uL Final [place]% Date Value Ref Range Status 07/19/2022 5.0 % Final Abs [place] Date Value Ref Range Status 07/19/2022 0.84 [...] do not hesitate to contact me at [phone]. Santos Lares MD Hematology/Medical Oncology [facility] spent a total of 30 minutes on the date of the service which included preparing to see the patient, usoe-oj-cyen patient care, completing clinical documentation, obtaining and/or reviewing separately obtained history, counseling and educating the patient/family/caregiver, and ordering medications, tests, or procedures. Medical Decision Making: Medical Decision Making Level: 1 - N/A CC: Ayanna Vicente DO documented in this encounterProtestant Deaconess Hospital01-06-2023 Nurse Note* Lluvia Samuel MA - 07/19/2022 12:20 PM EST Patient would like to ask you about her right ear, it is painful to touch, her head also hurts and also has Left side pain. Lluvia Samuel MA documented in this encounterProtestant Deaconess Hospital11-18-2022 Evaluation note* Encounter Date Diagnosis Assessment Notes Treatment Notes Treatment Clinical Notes May, Cystitis (ICD-10 - N30.90) [facility] [employer] Other 10-11-2022 Evaluation note* Encounter Date Diagnosis Assessment Notes Treatment Notes Treatment Clinical Notes Apr, BMI 31.0-31.9,adult (ICD-10 - Z68.31) [facility] [employer] Other 10-06-2022 History of Present illness Narrative* Santos Lares MD - 04/18/2022 11:59 AM EDT PATIENT NAME: Kathy Washburn CLINIC NO.: [id number] ATTENDING PHYSICIAN: Santos Lares MD DATE OF [...] 9.37 (H) 1.00 - 4.00 k/uL Final [place]% Date Value Ref Range Status 04/04/2022 5.0 % Final Abs [place] Date Value Ref Range Status 04/04/2022 0.67 [...] do not hesitate to contact me at [phone]. Santos Lares MD Hematology/Medical Oncology [facility] I spent a total of 30 minutes on the date of the service which included preparing to see the patient, hawh-bb-irkf patient care, completing clinical documentation, obtaining and/or reviewing separately obtained history, counseling and educating the patient/family/caregiver, and ordering medications, tests, or procedures. Medical Decision Making: Medical Decision Making Level: 1 - N/A CC: Ayanna Vicente DO documented in this encounterProtestant Deaconess Hospital09-28-2022 Evaluation note* Encounter Date Diagnosis Assessment Notes Treatment Notes Treatment Clinical Notes Mar, Neuropathy (ICD-10 - G62.9) [employer] Other [id number] Miscellaneous Notes* Telephone Encounter - Santos Lares MD - 04/05/2022 5:06 PM EDT Spoke to the patient and answered her questions * Telephone Encounter - Niurka Hood RN - 04/05/2022 4:08 PM EDT Pt notified and verbalizes understanding. Pt would like to speak w/ you before her next appointment. Asks that you call her @ [phone] when you have time. Thanks! Niurka Hood [...] no one picked up documented in this encounterProtestant Deaconess Hospital09-22-2022 History of Present illness Narrative* Santos Lares MD - 04/04/2022 11:32 AM EDT PATIENT NAME: Kathy Washburn CLINIC NO.: [id number] ATTENDING PHYSICIAN: Santos Lares MD DATE OF [...] ago. Has a son who lives in [place]. She does not smoke nor drink heavily. [...] weeks to review results. Dear Dr. Ayanna Carlsonank you for allowing me to participate in Mrs. Kathy Washburn care, if there are any questions or concerns please do not hesitate to contact me at the number below. Santos Lares M.D. Hematology/Medical Oncology [facility] [phone] CC: Ayanna Vicente DO documented in this encounterProtestant Deaconess Hospital09-20-2022 Evaluation note* Encounter Date Diagnosis Assessment [...] hurt. She has not followed with any export freight specialist. She saw Dr. Akins in the [...] would like to refer her to a mail distribution clerk for evaluation, and she agrees. A referral [...] if needed. She can also see a buildings painter to discuss injections. She voices that she saw Dr. Guillaume in the past for migraines and would like to see Dr. Morales for evaluation. For now she will try to take the pain medication more often and see if this provides her with better relief and will continue to monitor. I will refer her to Dr. Morales for evaluation. Mar, Other fci (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 therapy (ICD-10 - Z79.899) Mar, [...] to get this until seen by the mail distribution clerk. She voices understanding. Mar, Encounter for screening [...] find out where Dr. Milner went in [place] and then will refer her back to Dr. Milner to discuss a colonoscopy. Mar, Weight loss (ICD-10 - R63.4) She has lost 1.5 pounds since last seen. [employer] Other 09-06-2022 Evaluation note* Encounter Date Diagnosis Assessment Notes Treatment Notes Treatment Clinical Notes Mar, Diabetes type 2, uncontrolled (ICD-10 - E11.65) Mar, Hypertension (ICD-10 - I10) Mar, Neuropathy (ICD-10 - G62.9) [employer] Other 08-26-2022 Evaluation note* Encounter Date Diagnosis Assessment Notes Treatment Notes Treatment Clinical Notes Feb, Diabetes type 2, uncontrolled (ICD-10 - E11.65) [facility] Other 07-27-2022 Evaluation note* Encounter Date Diagnosis [...] should cautiously continue with the above medication. 27 Bill, 2022 Other abnormal blood chemistry (ICD-10 - R79.89) [...] Ambien, she is taking Melatonin. Jan, Other fci (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 therapy (ICD-10 - Z79.899) Jan, [...] ER right away because she was at [place] which is 50 miles west of [place] and there was not an ER close [...] he thinks she can return to driving. [employer] Other 06-27-2022 Evaluation note* Encounter Date Diagnosis Assessment Notes Treatment Notes Treatment Clinical Notes Dec, Dysphagia (ICD-10 - R13.10) [facility] [employer] Other 06-27-2022 Evaluation note* Encounter Date Diagnosis Assessment Notes Treatment Notes Treatment Clinical Notes Dec, Other spondylosis with radiculopathy, lumbar region (ICD-10 - M47.26) [facility] [employer] Other 06-16-2022 Evaluation note* Encounter Date Diagnosis [...] M20.42) Dec, Foot deformity (ICD-10 - M21.969) [facility] Other 06-08-2022 Evaluation note* Encounter Date Diagnosis Assessment Notes Treatment Notes Treatment Clinical Notes Dec, Peripheral edema (ICD-10 - R60.9) [facility] Other 06-06-2022 Evaluation note* Encounter Date Diagnosis Assessment Notes Treatment Notes Treatment Clinical Notes Dec, History of colon polyps (ICD-10 - Z86.010) Dec, Irritable bowel syndrome with diarrhea (ICD-10 - K58.0) MAY USE IMODIUM NEEDED PT TO REPORT PROGRESS [facility] [employer] Other 05-02-2022 Evaluation note* Encounter Date Diagnosis Assessment Notes Treatment Notes Treatment Clinical Notes November, Cystitis (ICD-10 - N30.90) [facility] [employer] Other 03-22-2022 Evaluation note* Encounter Date Diagnosis [...] when she came home from traveling from [place] last week she had congestion and was coughing alot, she had alot of irritation in her throat and the back of her throat. She feels like someone put a bullet in her throat. She took a decongestant yesterday and feels better today. 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 I did recommend that she [...] that she was able to travel to [place] last week on her own for the first time by herself with her back issues and did well. She did have to use a wheelchair. She did need a wheelchair while in the airport. An [place] report was reviewed, no discrepancies noted. Frequent appointments needed due to addiction potential. She has not gone to the [facility]. She voices that she never got a call back from that center and did not pursue this because she got involved with a urologist then developed bowel issues. She voices that she will follow up with the [facility] and Dr. Regan for this issue. [...] Sep, Other 2:54 PM - 3:20 PM [facility] [employer] Other 03-21-2022 Evaluation note* Encounter Date Diagnosis Assessment Notes Treatment Notes Treatment Clinical Notes Sep, Cough (ICD-10 - R05.9) [facility] [employer] Other 03-03-2022 Evaluation note* Encounter Date Diagnosis [...] I did recommend that she see a petroleum inspector supervisor for evaluation to discuss these issues [...] She agrees but she is going to [place] on 09-19-21 and will not return until [...] with the Imodium until she returns from [place] and is seen by Dr. Milner. She [...] Sep, Other 9:29 AM - 9:49 AM [facility] Other 01-05-2022 Evaluation note* Encounter Date Diagnosis Assessment Notes Treatment Notes Treatment Clinical Notes Jul, Neuropathy (ICD-10 - G62.9) [facility] [employer] Other 12-06-2021 Evaluation note* Encounter Date Diagnosis [...] refer her to the spine center in [place] but she did not pursue this. We [...] - N30.90) She currently follows with a curriculum coordinator. She also saw Dr. Redding for evaluation and he did a procedure on her bladder to help with bladder leakage, she was supposed to see him again but he was sick so she is trying to get in to see either him or another doctor such as Dr. Peterson or Dr. Gleason, she does not want to see his PA or PLATE DEVELOPER. She gets a pain in her vaginal area, describes it as a cut but now it feels as if it is going up higher. When she went to slack line yarder [employer]ology yesterday she felt like someone cut [...] Jun, Other 2:53 PM - 3:23 PM [facility] [employer] Other 10-12-2021 Evaluation note* Encounter Date Diagnosis Assessment Notes Treatment Notes Treatment Clinical Notes Apr, Neuropathy (ICD-10 - G62.9) [facility] [employer] Other 09-22-2021 Evaluation note* Encounter Date Diagnosis [...] Dr. Regan is referring her to the [facility] and she is seeing [...] the kidneys. She has never seen a museum informatics specialist before. Her BUN is 40. Creatinine is [...] 6.2. We discussed referring her to a mail distribution clerk for evaluation and to discuss this further but instead we will repeat lab in one month and if her level is this high or higher then we will do a referral through the [facility] in [place]. Mar, Knee pain (ICD-10 - M25.569) She [...] attending physical therapy and will see the [facility] soon. Mar, Weight loss (ICD-10 - R63.4) She has lost 5.5 pounds since last seen. She voices that she is trying to lose weight slowly. Encouraged her to continue with what she is doing. [employer] Other Evaluation + Plan note Future Appointments Appointment Date:02/24/2024 10:00:00 AM Scheduled Provider:SUSAN RANDOLPH PA-C Location:[facility] Appointment Type:URO Office Visit [facility] evaluation + Plan note Future Appointments Appointment Date:02/14/2025 01:20:00 PM Scheduled Provider:SUSAN RANDOLPH PA-C Location:[facility] Appointment Type:URO Office Visit [facility] evaluation + Plan note Future Appointments Appointment Date:10/27/2025 10:20:00 AM Scheduled Provider:JOSE Stewart APRN, [place] [facility] Location:[facility] Appointment Type:URO Office Visit [facility] evaluation note* Diagnosis Pain in both knees, unspecified chronicity- Primary documented in this encounter [facility] [facility] noteNo [facility] [employer] Other evaluation note* Diagnosis Onset Date Resolution Status Abrasion [...] fracture acute Diabetes chronic Hypertension chronic Hypothyroidism [facility] Work Phone: evaluughgc note* Diagnosis Lymphocytosis- Primary Lymphocytosis (symptomatic) [facility] this [facility] [place] [facility]* Diagnosis CLL (chronic lymphocytic leukemia) (HCC)- Primary Chronic lymphoid leukemia, without mention of having achieved remission [facility] Diagnosis Onset Date Resolution Status Acute UTI acute Chronic back pain acute Depression acute Diabetic neuropathy acute Fall acute Hematoma of right lower leg acute Impaired mobility and activities of daily living acute Minor closed head injury acu te Right wrist fracture acute Diabetes chronic Hypertension chronic Hypothyroidism [facility] Work Phone: Evaluation note* Diagnosis CLL (chronic lymphocytic leukemia) (HCC)- Primary Chronic lymphoid leukemia, without mention of having achieved remission Right ear pain Otalgia, unspecified Rib pain Chest pain, unspecified Axillary adenopathy Enlargement of lymph nodes Other signs and symptoms in breast Encounter for screening mammogram for malignant neoplasm of breast Other screening mammogram documented in this encounter [facility] noteNo assessment information available[facility] Work Phone: evaluation note* Diagnosis CLL (chronic lymphocytic leukemia) (HCC)- Primary Chronic lymphoid leukemia, without mention of having achieved remission [facility]* Diagnosis Onychomycosis- Primary Dermatophytosis of nail 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) Pain in both feet documented in this encounter [facility] HealthcareEvaluation note* Diagnosis Onset Date Resolution Status Chronic lymphocytic leukemia acute Cystitis acute Diabetes type 2, uncontrolled acute Lumbar disc disease with radiculopathy acute Neuropathy acute Other abnormal blood chemistry acute Other meterman (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 therapy acute Peripheral edema acute HLD (hyperlipidemia) chronic Hypertension chronic Hypothyroidism chronic Insomnia chronic [facility] Work Phone: evaluoptul note* Diagnosis Onset Date Resolution Status Right otitis media acute Cystitis acute Diabetes type 2, uncontrolled acute Other spondylosis with radiculopathy, lumbar region acute Rheumatism acute Insomnia [place] Work Phone: evaluation note* Diagnosis Primary osteoarthritis involving multiple joints- Primary Fibromyalgia Mylagia and myositis, unspecified Type 2 diabetes mellitus without complication, with long-term current use of insulin ([facility]) [facility] Diagnosis CLL (chronic lymphocytic leukemia) (HCC)- Primary Chronic lymphoid leukemia, without mention of having achieved remission [facility] Diagnosis Cognitive impairment- Primary Unspecified persistent mental disorders due to conditions classified elsewhere Long-term use of high-risk medication documented in this encounter [facility] HealthcareEvaluation note* Diagnosis Diarrhea, unspecified type- Primary Constipation, unspecified constipation type documented in this encounter [facility] HealthcareEvaluation note* Diagnosis Memory loss- Primary Concentration deficit Word finding difficulty Other chronic pain Family history of dementia Family history of other neurological diseases documented in this encounter [facility] HealthcareEvaluation note* Diagnosis Cognitive impairment- Primary Unspecified persistent mental disorders due to conditions classified elsewhere documented in this encounter [facility] HealthcareEvaluation note* Diagnosis Onset Date Resolution Status Admit Date Cystitis acute August 11, 2024 1:16pm Irritable bowel syndrome wit h diarrhea acute August 11 1:16pm Other spondylosis with radiculopathy, lumbar region acute Jul 1:16pm [facility] Work Phone: Evaluation note* Diagnosis Onset Date Resolution Status Admit Date Chronic kidney disease, stage 3b acu te November 10, 2024 3:41pm Chronic lymphocytic leukemia acute November 10, 2024 3:41pm Cystitis acute November 10 3:41pm Diabetes acute November 10 3:41pm Other spondylosis with radiculopathy, lumbar region acute Oct 3:41pm Peripheral edema acute November 102024 3:41pm Premature beat acute October 3:41pm Rheumatism acute November 10 3:41pm HLD (hyperlipidemia) chronic Apr2024 3:41pm Hypertension chronic November 10, 2024 3:41pm Hypothyroidism chronic October 3:41pm [facility] Work Phone: Evaluation note* Diagnosis Fibromyalgia- Primary Mylagia and myositis, unspecified Primary osteoarthritis involving multiple joints Type 2 diabetes mellitus without complication, with long-term current use of insulin (HCC) Long-term use of Plaquenil Encounter for long-term (current) use of other medications [facility]* Diagnosis Diarrhea, unspecified type- Primary documented in this encounter [facility] HealthcareHistory general Narrative - Reported* Type Description Date Medical History pelvic exam done Medical History 2008 mammogram-normal Medical History 2009 colonoscopy Medical History 2003 CT scan done Medical History 2007 eye exam Medical History -2009 Zostavax done Medical History Flu/H1N1 vaccine Medical History -2010 mammogram Medical History -2010 DEXA scan Medical History Follows with Dr. Roxane rivera y Medical History 08-22-2011 Left femur [facility] Medical History 08-22-2011 Chest x-ray [facility] Medical History stress test-normal ([facility]) Medical History Mammogram 2015 - Dr. Fritz Surgical History bilateral inguinal hernia repai r 1982 Surgical History left knee 2000 Surgical History hysterectomy 1985 Surgical History abdominal hernia 1992 Surgical History hernia repair 1997 Surgical History appendectomy 1986 Surgical History right [...] on polyps - Hospitalization History see above [employer] Other History general Narrative - Reported* Type Description Date Medical History -2007 pelvic exam done Medical History 2008 mammogram-normal Medical History 2008 colonoscopy Medical History 2003 CT scan done Medical History 2007 eye exam Medical History Zostavax done Medical History Flu/H1N1 vaccine Medical History 1-2010 mammogram Medical History -2010 DEXA scan Medical History Follows with Dr. Betts yearl y Medical History 08-22-2011 [facility] femur [facility] Medical History 08-22-2011 Chest x-ray [facility] Medical History stress test-normal ([facility]) Medical History [...] 2000 Surgical History right knee replacement- Dr. Sahun hdz -2009 Surgical History left total knee-Dr. Haque -2011 Surgical History lumbar surgery Dr Frias 03/24/17 Surgical History Colonoscopy, col Bonifacio on polyps - Hospitalization History see above Hospitalization History fx wrist and head lacera tion after a fall 01/13/22 [employer] Other [facility] general Narrative - Reported* Type Description Date Medical History pelvic exam done Medical History 2008 mammogram-normal Medical History 2009 colonoscopy Medical History 2004 CT scan done Medical History 2007 eye exam Medical History Zostavax done Medical History Flu/H1N1 vaccine Medical History mammogram Medical History DEXA scan Medical History Follows with Dr. Betts yearcar y Medical History 08-22-2011 Left femur [facility] Medical History 08-22-2011 Chest x-ray [facility] Medical History stress test-normal ([facility]) Medical History [...] head lacera tion after a fall 01/13/22 [employer] Other Hisrnir general Narrative - Reported* Type Description Date Medical History pelvic exam done Medical History 2008 mammogram-normal Medical History 2008 colonoscopy Medical History 2003 CT scan done Medical History 2007 eye exam Medical History Zostavax done Medical History Flu/H1N1 vaccine Medical History mammogram Medical History DEXA scan Medical History Follows with Dr. Betts yearcar y Medical History 08-22-2011 Left femur [facility] Medical History 08-22-2011 Chest x-ray [facility] Medical History stress test-normal ([facility]) Medical History [...] History hernia repair 1997 Surgical History appendectomy 1986 Surgical History right [...] head lacera tion after a fall 01/13/22 [employer] Other Hospital course Narrative No data available for this section [facility] Work Phone: Hospital Discharge instructionsAmbulatory Orders* Referral to Sleep Medicine Time Frame: 02/05/24, Location: None [facility] Work Phone: Hospital Discharge instructionsAmbulatory Orders* Referral to General Surgery Time Frame: 04/05/24, Location: None [facility] Work Phone: Progress note No data available for this section [facility] reason for referral (narrative)* Diagnostic Procedure Only (Routine) Status Reason Specialty Diagnoses / Procedures Referred By Contact Referred To Contact Pending Review Auto-Generated Referral XR IMAGING Diagnoses Pain in both knees, unspecified chronicity Procedures XR PELVIS 1V AP X-RAY PELVIS AP ONLY Dale Espinoza PA-C [address] [place] [address] Xr Imaging * Diagnostic Procedure Only (Routine) Status Reason Specialty Diagnoses / Procedures Referred By Contact Referred To Contact Pending Review Auto-Generated Referral XR IMAGING Diagnoses Pain in both knees, unspecified chronicity Procedures XR KNEE GENERAL 4V AP BOTH/PA BOTH/LAT/MERC BILAT KNEE AP-WGT/LAT/MERCHA NT Dale Espinoza PA-C [address] [place] [address] Xr Imaging [facility] for referral (narrative)* Diagnostic Procedure Only (Routine) - Pending Review Specialty Diagnoses / Procedures Referred By Selin t Referred To Contact BR IMAGING Diagnoses Encounter for screening mammogram for malignant neoplasm of breast Procedures SONYA SCREENING W NEYDA SCREENING DIGITAL BREAST TOMOSYNTHESIS BI SCREENING MAMMOGRAPHY BI 2-VIEW BREAST INC CAD Santos Lares MD [address] [place] [address] [facility] [address] [place] [address] Referral ID Status Reason Start Date Expiration Date Visits Requested Visits Authorized [id number] Pending Review Auto-Generat ed Referral 07/19/2022 08/18/2023 1 1 * Diagnostic Procedure Only (Routine) - Pending Review Specialty Diagnoses / Procedures Referred By Selin vasquez Referred To Contact BR IMAGING Diagnoses Axillary adenopathy Other signs and symptoms in breast Procedures US BREAST LTD LT US BREAST UNI REAL TIME WITH IMAGE LIMITED Santos Lares MD [address] [place] [address] [facility] [address] [place] [address] Referral ID Status Reason Start Date Expiration Date Visits Requested Visits Authorized [id number] Pending Review Auto-Generat ed Referral 07/26/2022 08/18/2023 1 1 * Diagnostic Procedure Only (Routine) - Pending Review Specialty Diagnoses / Procedures Referred By Selin t Referred To Contact XR IMAGING Diagnoses Rib pain Procedures XR RIBS/CHEST 3V AP RIB/OBLS/CXR LEFT RADEX RIBS UNI W/POSTEROANT CH MINIMUM 3 VIEWS Santos Lares MD [address] [place] [address] Xr Imaging Referral ID Status Reason Start Date Expiration Date Visits Requested Visits Authorized [id number] Pending Review Auto-Generat ed Referral 07/19/2022 08/18/2023 1 1 * Consult, Test, Treat (Routine) - Authorized Specialty Diagnoses / Procedures Referred By Contac t Referred To Contact Ent - Otolaryngology Diagnoses Right ear pain Procedures CONSULT TO ENT OFFICE/OUTPATIENT [facility] 60-74 MINUTES Santos Lares MD [address] [place] [address] Referral ID Status Reason Start Date Expiration Date Visits Requested Visits Authorized [id number] Authorized PCP Requested Referral 07/19/2022 07/19/2023 1 1 [facility] Reason appt pt needs cons ult to see Homa Mckeon /Dr. Corea for evaluation of lumbar pain Diagnosis 1 Other spondylosis wi th radiculopathy, lumbar region (M47.26) Referral Organization [facility] Referring Provider First Name Ayanna Referring Provider Last Name Sakina Referring Provider Specialty Family Prac art Referred Organization [facility] Referred Provider Homa Mckeon Referred Address [address] [place] [id number] Referred Provider Specialty Nurse Uli cotto Referral Priority Routine General Notes Nereyda Sanchez 04/15/2023 03:33:35 PM > referral sent p2p. pt understands she will be contacted to schedule this appt [employer] Other Reason for referral (narrative)No reason for referral information availableBerger Hospital Work Phone: Reason for visit Narrativereview labs, refill medication, discuss multiple issues, see treatment plan for further information [employer] Other Reason for visit NarrativePT HERE AT REQUEST OF DR VICENTE FOR EVALUATION AND TREATMENT OF CHANGE IN STOOL HABITS AND HISTORY OF IRRITABLE BOWEL SYNDROME AND COLON POLYPS, REFERRAL NOTE [facility]Do[facility] [employer] Other Reason for visit Narrativereview labs/med refill, discuss multiple issues see treatment [facility] [employer] Other Reason for visit NarrativeNeurosurgery Referral Update [facility] [employer] [facility] [employer] Other reason for visit Narrative* Consultation (Routine) - Closed Specialty Diagnoses / Procedures Referred By Selin t Referred To Contact Neurology Diagnoses Other amnesia Procedures RI OFFICE/OUTPATIENT NEW LOW [facility] 30 MINUTES Ayanna Vicente MD [address] [place] [address] Phone: tel: fax: Babita Guillaume DO [address] [place] [address] Phone: tel: fax: Referral ID Status Reason Start Date Expiration Date V isits Requested Visits Authorized [id number] Closed Consult and Treat 05/21/2024 11/17/2024 1 1 [facility] Narrative* Consultation (Routine) - Closed Specialty Diagnoses / Procedures Referred By Selin vasquez Referred To Contact Psychology Diagnoses Cognitive impairment Procedures RI OFFICE/OUTPATIENT [facility] Babita Guillaume DO [address] [place] [address] Phone: tel: fax: Enrique Hammonds, PhD [address] [place] [address] Phone: tel: fax: Referral ID Status Reason Start Date Expiration Date V isits Requested Visits Authorized [id number] Closed Specialty Services Required 06/17/2024 12/14/2024 1 1 [facility] Healthcare Summary Purpose Family History Relationship Condition Age at Onset Recorded Date/T [...] Malignant neoplasm Unknown sister Unknown Advance Directives Advance Directive Response Recorded Date/ Time Advance [...] in right hip (M 25.551) [facility] Referring Provider First Name Homa Referring Provider Last Name Mckeon Referring Provider Specialty Nurse Pract itioner Referred Organization [facility] Referred Provider Bonnie Slade Referred Address [address] [place], [place],[address] Referred Provider Specialty Pain Medicin e Referral Priority Routine General Notes Susan Ugarte 04:33:20 PM >received today, holding referral for todays visit note to be locked Reason evaluate and t reat for hip pain Diagnosis 1 Pain in right hip (M 25.551) Referral [facility] Referring Provider First Name Homa Referring Provider Last Name Mckeon Referring Provider Specialty Nurse Pract itioner Referred Organization [facility] Referred Provider Gume Macedo Referred Address [address],[place],[address] Referred Provider Specialty Orthopedic S urgery Referral Priority Routine General Notes Susan Ugarte 04:34:14 PM >received today, sending p2p at this time for scheduling Reason Aqua therapy - evalu ate and treat Diagnosis 1 Pain in right hip (M 25.551) Diagnosis 2 Lumbar pain (M54.50) Referral Organization [facility] Referring Provider First Name Homa Referring Provider Last Name Mckeon Referring Provider Specialty Nurse Pract itioner Referred Organization [facility] Referred Address [address] [facility],[place],[address] Referred Provider Specialty Physical The rapist Referral Priority Routine Reason appt pt would like to discuss hip, back, knee and sciatic pain Diagnosis 1 Other spondylosis wi th radiculopathy, lumbar region (M47.26) Referral Organization [facility] [place] Referring Provider First Name Ayanna Referring Provider Last Name Sakina Referring Provider Specialty Family Prac art Referred Organization [facility] Referred Provider Homa Mckeon Referred Address [address] [facility] ,[place],[address] Referred Provider Specialty Nurse Uli cotto Referral Priority Routine General Notes Nereyda Sanchez 07/16/2023 03:06:01 PM > referral sent p2p. pt understands she will be contacted to schedule this appt Reason appt pt is willin g to see any of the providers consult for eval and treatment of rheumatism/prescribing of Plaquenil Diagnosis 1 Rheumatism, unspecif ied (M79.0) [facility] Referring Provider First Name Ayanna Referring Provider Last Name Sakina Referring Provider Specialty Family Prac art Referred Organization [facility] Referred Provider Esteban Saravia Referred Address [address] [place],[address] Referred Provider Specialty Rheumatology Referral Priority Routine [...] Wrist fracture, righ t (S62.101A) Referral Organization [facility] liseth EnriquezWilda Referring Provider First Name Ayanna Referring Provider Last Name Sakina Referring Provider Specialty Family Prac art Referred Organization [facility] Referred Provider Penny Mike Referred Address [address] [place],[address] Referred Provider Specialty Hand Surgery Referral Priority [...] th radiculopathy, lumbar region (M47.26) [facility] Referring Provider First Name Ayanna Referring Provider Last Name Sakina Referring Provider Specialty Family Prac art Referred Organization [facility] Referred Provider Anthony Morales Referred Address [address] [place],[address] Referred Provider Specialty Psychiatry, Neurology (Osteopaths only) [...] Diagnosis 1 Leukocytosis (D72.82 9) [facility] [place] Referring Provider First Name Ayanna Referring Provider Last Name Sakina Referring Provider Specialty [facility] Prac art Referred [facility] Referred Provider Saqib Coleman Referred Address [address] [place], [place],[address] Referred Provider Specialty Hematology/O ncology Referral Priority [...] Knee pain, right (M2 5.561) Referral Organization [facility] [place] Referring Provider First Name Ayanna Referring Provider Last Name Sakina Referring Provider Specialty Family Prac art Referred Organization [facility] Referred Provider Zohaib Akins II Referred Address [address] [place],[address] Referred Provider Specialty Orthopedic S urgery Referral Priority Routine General Notes Nereyda Sanchez 02/06/2022 02:16:49 PM > referral sent p2p. pt understands she will be contacted to schedule this appt. Reason appt pt needs cons ult to discuss change in stool habits, history of colon polyps, hx of IBS Diagnosis 1 Change in stool jacquie yesi (R19.4) Referral Organization [facility] [place] Referring Provider First Name Ayanna Referring Provider Last Name Sakina Referring Provider Specialty Family Prac art Referred Organization [facility] Gastroenterolo gy Referred Provider Ayanna Milner Referred Address [address] ,[place], [place],[address] Referred Provider Specialty Gastroentero logy Referral Priority [...] radiculopathy Neuropathy Other abnormal blood chemistry Other meterman (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 therapy Peripheral edema HLD (hyperlipidemia) Hypertension Hypothyroidism Insomnia Chief Complaint Amb Documentation E11.65 E78.5 E03.9 R79.89 N30.90 Amb Documentation review labs/med refill sore throat, congestion, cough Reason for Visit Chronic lymphocytic leukemia Cystitis Diabetes type 2, uncontrolled Lumbar disc disease with radiculopathy Neuropathy Other abnormal blood chemistry Other meterman (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 therapy Peripheral edema HLD (hyperlipidemia) [...] 9:49am Irritable bowel syndrome with diarrhea S epteer 2023 9:49am Other spondylosis with radiculopathy, tania mbar region April 05, 2024 9:49am Cystitis May 11, 2024 2 :37pm Diabetes type 2, uncontrolled May 112023 2:37pm Hip pain, left May 11, 2024 2 :37pm Knee pain, left May 11, 2024 2 :37pm Memory changes May 11, 2024 2 :37pm Other abnormal blood chemistry April 142023 2:37pm Other spondylosis with radiculopathy, [facility] region May 11, 2024 2:37pm HLD (hyperlipidemia) May 11, 2024 2:37pm Hypothyroidism May 11, 2024 2 :37pm BMI 32.0-32.9,adult May 12, 2024 1 :35pm Chronic insomnia May 12, 2024 1 :35pm Hypnotic-dependent sleep disorder Octobe r 2023 1:35pm Chief Complaint Admit Date Z12.31 May 18, 2024 2 :22pm M25.552 [...] anuary 2024 1:16pm Other spondylosis with radiculopathy, [facility] August 11, 2024 1:16pm Chief Complaint Admit Date Z12.31 May 18, 2024 2 :22pm M25.552 [...] 2024 3:4 1pm Other spondylosis with radiculopathy, [facility] November 10, 2024 3:41pm Peripheral edema November 10, 2024 3:4 1pm Premature beat November 10, 2024 3:4 1pm Rheumatism November 10, 2024 3:4 1pm HLD (hyperlipidemia) November 10, 2024 3: 41pm Hypertension November 10, 2024 3:4 1pm Hypothyroidism November 10, 2024 3:4 1pm Chief Complaint Admit Date med refill/ review lab November 10, 2024 3:41pm ckd 3 December 16, 2024 2:13p m Reason for Visit Admit Date Chronic kidney disease, stage 3b October 142024 3:41pm Chronic lymphocytic leukemia November 10, 2024 3:41pm Cystitis November 10, 2024 3:4 1pm Diabetes November 10, 2024 3:4 1pm Other spondylosis with radiculopathy, [facility] November 10, 2024 3:41pm Peripheral edema November 10, 2024 3:4 1pm Premature beat November 10, 2024 3:4 1pm Rheumatism November 10, 2024 3:4 1pm HLD (hyperlipidemia) November 10, 2024 3: 41pm Hypertension November 10, 2024 3:4 1pm Hypothyroidism November 10, 2024 3:4 1pm Chronic kidney disease, stage 3b December 2:13pm Hyperkalemia December 16, 2024 2:13p m Hypertensive chronic 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 4 chronic ki December 16, 2024 2:13pm Type 2 diabetes mellitus with diabetic c hronic kidney disease December 16, 2024 2:13pm HLD (hyperlipidemia) December 16, 2024 2:13 pm Vitamin D deficiency December 16, 2024 2:13 pm Chief Complaint Admit Date med refill/ review lab November 10, 2024 3:41pm ckd 3 December 16, 2024 2:13p m change in bowel habits January 19, 2025 10 :41am Chief Complaint Admit Date med refill/ review lab November 10, 2024 3:41pm ckd 3 December 16, 2024 2:13p m change in bowel habits January 19, 2025 10 :41am RENAL 6 WEEK F/U January 27, 2025 1:47 pm Reason for Visit Admit Date Chronic kidney disease, stage 3b October 142024 3:41pm Chronic lymphocytic leukemia November 10, 2024 3:41pm Cystitis November 10, 2024 3:4 1pm Diabetes November 10, 2024 3:4 1pm Other spondylosis with radiculopathy, [facility] November 10, 2024 3:41pm Peripheral edema November 10, 2024 3:4 1pm Premature beat November 10, 2024 3:4 1pm Rheumatism November 10, 2024 3:4 1pm HLD (hyperlipidemia) November 10, 2024 3: 41pm Hypertension November 10, 2024 3:4 1pm Hypothyroidism November 10, 2024 3:4 1pm Chronic kidney disease, stage 3b December 2:13pm Hyperkalemia December 16, 2024 2:13p m Hypertensive chronic 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 4 chronic ki December 16, 2024 2:13pm Type 2 diabetes mellitus with diabetic c hronic kidney disease December 16, 2024 2:13pm HLD (hyperlipidemia) December 16, 2024 2:13 pm Vitamin D deficiency December 16, 2024 2:13 pm Chronic kidney disease, stage 3b January 272024 1:47pm Hyperkalemia January 27, 2025 1:47 pm Hypertensive chronic 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 4 chronic ki January 27, 2025 1:47pm Type 2 diabetes mellitus with diabetic c hronic kidney disease January 27, 2025 1:47pm HLD (hyperlipidemia) January 27, 2025 1:4 7pm Vitamin D deficiency January 27, 2025 1:4 7pm Chief Complaint Admit Date ckd 3 December 16, 2024 2:13p m change in bowel habits January 19, 2025 10 :41am RENAL 6 WEEK F/U January 27, 2025 1:47 pm med refill February 15, 2025 2:4 3pm Reason for Visit Admit Date Chronic kidney disease, stage 3b December 2:13pm Hyperkalemia December 16, 2024 2:13p m Hypertensive chronic 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 4 chronic ki December 16, 2024 2:13pm Type 2 diabetes mellitus with diabetic c hronic kidney disease December 16, 2024 2:13pm HLD (hyperlipidemia) December 16, 2024 2:13 pm Vitamin D deficiency December 16, 2024 2:13 pm Chronic kidney disease, stage 3b January 272024 1:47pm Hyperkalemia January 27, 2025 1:47 pm Hypertensive chronic 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 4 chronic ki January 27, 2025 1:47pm Type 2 diabetes mellitus with diabetic c hronic kidney disease January 27, 2025 1:47pm HLD (hyperlipidemia) January 27, 2025 1:4 7pm Vitamin D deficiency January 27, 2025 1:4 7pm Hydradenitis February 15, 2025 2:4 3pm Lumbar degenerative disc disease February 15, 2025 2:43pm Neuropathy February 15, 2025 2:4 3pm Overactive bladder February 15, 2025 2:4 3pm Diabetes February 15, 2025 2:4 3pm Additional Source Comments INFORMATION SOURCE (unrecogn ized section and content) DATE CREATED AUTHOR 01/06/2021 [facility] DATE CREATED AUTHOR AUTHOR'S ORGANIZ ATION 08/16/2022 [facility] DATE CREATED AUTHOR AUTHOR'S ORGANIZ ATION 11/13/2022 [facility] DATE CREATED AUTHOR AUTHOR'S ORGANIZ ATION 12/18/2024 [facility] DATE CREATED AUTHOR AUTHOR'S ORGANIZ ATION 01/14/2025 [facility] DATE CREATED AUTHOR AUTHOR'S ORGANIZ ATION 02/01/2025 [facility] DATE CREATED AUTHOR AUTHOR'S ORGANIZ ATION 02/10/2025 [facility] DATE CREATED AUTHOR AUTHOR'S ORGANIZ ATION 02/12/2025 [facility] Source Comments (unrecognize d section and content) In the event this informatio n is protected by the Federal Confidentiality of Alcohol and Drug Abuse Patient Records regulations: The Federal rules restrict any use of the information to criminally investigate or prosecute any alcohol or drug abuse patient.[facility] the event this information is protected by the Federal Confidentiality of Alcohol and Drug Abuse Patient Records regulations: The Federal rules restrict any use of the information to criminally investigate or prosecute any alcohol or drug abuse patient.[facility] the event this information is protected by the Federal Confidentiality of Alcohol and Drug Abuse Patient Records regulations: The Federal rules restrict any use of the information to criminally investigate or prosecute any alcohol or drug abuse patient.[facility] the event this information is protected by the Federal Confidentiality of Alcohol and Drug Abuse Patient Records regulations: The Federal rules restrict any use of the information to criminally investigate or prosecute any alcohol or drug abuse patient.[facility] the event this information is protected by the Federal Confidentiality of Alcohol and Drug Abuse Patient Records regulations: The Federal rules restrict any use of the information to criminally investigate or prosecute any alcohol or drug abuse patient.[facility] the event this information is protected by the Federal Confidentiality of Alcohol and Drug Abuse Patient Records regulations: The Federal rules restrict any use of the information to criminally investigate or prosecute any alcohol or drug abuse patient.[facility] the event this information is protected by the Federal Confidentiality of Alcohol and Drug Abuse Patient Records regulations: The Federal rules restrict any use of the information to criminally investigate or prosecute any alcohol or drug abuse patient.[facility] the event this information is protected by the Federal Confidentiality of Alcohol and Drug Abuse Patient Records regulations: The Federal rules restrict any use of the information to criminally investigate or prosecute any alcohol or drug abuse patient.[facility] the event this information is protected by the Federal Confidentiality of Alcohol and Drug Abuse Patient Records regulations: The Federal rules restrict any use of the information to criminally investigate or prosecute any alcohol or drug abuse patient.[facility] the event this information is protected by the Federal Confidentiality of Alcohol and Drug Abuse Patient Records regulations: The Federal rules restrict any use of the information to criminally investigate or prosecute any alcohol or drug abuse patient.[facility] the event this information is protected by the Federal Confidentiality of Alcohol and Drug Abuse Patient Records regulations: The Federal rules restrict any use of the information to criminally investigate or prosecute any alcohol or drug abuse patient.[facility] the event this information is protected by the Federal Confidentiality of Alcohol and Drug Abuse Patient Records regulations: The Federal rules restrict any use of the information to criminally investigate or prosecute any alcohol or drug abuse patient.[facility] REASON FOR VISIT (unrecogniz ed section [...] Comments Cognitive Impairment Reason Comments Records faxed Reason Comments Osteoarthritis Reason Comments Schedule colonoscopy Care Teams (unrecognized sec tion and content) Team Status: Active Member Role Status Kayla Vicente DO Primary Care Provider Active Team Status: Inactive Member Role Status Kayla Vicente DO Primary Care Provider Active S tart: December 16, 2024 End: December 16, 2024 Lesli Arevalo MD Attending Provider Active Start : December 16, 2024 End: December 16, 2024 Team Status: Active Member Role Status Kayla Vicente DO Primary Care Provider Active S tart: January 17, 2025 Lesli Arevalo MD Attending Provider Active Start : January 17, 2025 Team Status: Inactive Member Role Status Kayla Vicente DO Primary Care Provider Active S tart: January 19, 2025 End: January 19, 2025 Moe Betts DO Attending Provider Active Start: January 19, 2025 End: January 19, 2025 Team Status: Inactive Member Role Status Kayla Vicente DO Primary Care Provider Active S tart: January 27, 2025 End: January 27, 2025 Lesli Arevalo MD Attending Provider Active Start : January 27, 2025 End: January 27, 2025 Team Status: Active Member Role Status Kayla Vicente DO Primary Care Provider Active S tart: February 09, 2025 Som Azul MD Attending Provider Active Start: February 09, 2025 Team Status: Inactive Member Role Status Kayla Vicente DO Primary Care Provider Active S tart: February 15, 2025 End: February 15, 2025 Ayanna Vicente DO Attending Provider Active Star t: February 15, 2025 End: February 15, 2025 Team Status: Active Member Role Status Kayla Vicente DO Primary Care Provider Active Team Status: Active Member Role Status Kayla Vicente DO Attending Provider Active Star t: November 01, 2024 Team Status: Inactive Member Role Status Kayla Vicente DO Primary Care Provider Active S tart: November 10, 2024 End: November 10, 2024 Ayanna Vicente DO Attending Provider Active Star t: November 10, 2024 End: November 10, 2024 Team Status: Inactive Member Role Status Kayla Vicente DO Primary Care Provider Active S tart: December 16, 2024 End: December 16, 2024 Lesli Arevalo MD Attending Provider Active Start : December 16, 2024 End: December 16, 2024 Team Status: Active Member Role Status Dates Ayanna Vicente DO Primary Care Provider Active S tart: January 17, 2025 Lesli Arevalo MD Attending Provider Active Start : January 17, 2025 Team Status: Inactive Member Role Status Kayla Vicente DO Primary Care Provider Active S tart: January 19, 2025 End: January 19, 2025 Moe Betts DO Attending Provider Active Start: January 19, 2025 End: January 19, 2025 Team Status: Active Member Role Status Kayla Vicente DO Family Provider Active Team Status: Inactive Member Role Status Kayla Vicente DO Primary Care Provide r, Attending Provider Active Start: May 18, 2024 End: May 18, 2024 Team Status: Inactive Member Role Status Kayla Vicente DO Primary Care Provide r, Attending Provider Active Start: May 26, 2024 End: May 26, 2024 Team Status: Active Member Role Status Kayla Vicente DO Primary Care Provide r, Attending Provider Active Start: May 26, 2024 Team Status: Inactive Member Role Status Dates Tri Ag DO Attending Provider Active Start: June 15, 2024 End: June 15, 2024 Team Status: Active Member Role Status Kayla Vicente DO Primary Care Provider Active S tart: June 15, 2024 Tri Ag , DO Attending Provider Active Start: June 15, 2024 Team Status: Active Member Role Status Kayla Vicente DO Primary Care Provide r, Attending Provider Active Start: June 22, 2024 Team Status: Inactive Member Role Status Kayla Vicente DO Attending Provider Active Star t: August 10, 2024 End: August 10, 2024 Team Status: Inactive Member Role Status Kayla Vicente DO Primary Care Provide r, Attending Provider, Family Provider Active Team Status: Inactive Member Role Status Kayla Vicente DO Primary Care Provider, Family Provid er Active Galo Max MD Admit Provider, Attending Provider A ctbalaji Penn , ALLYSSA Other Provider Active Josette Orourke , ALLYSSA Other Provider Active Estrellita Camejo , ALLYSSA Other Provider Active Ny Denslow , RN Other Provider Active Marcie Acosta , ALLYSSA Other Provider Active Laura Wall , ALLYSSA Other Provider Active Yuliana Hale MD Other Provider Active Herman Kevin MD Other Provider Active Kitty Powell APRN Other Provider Active Madeline Juarez , DO [...] MD Other Provider Active Yanira Najera , PLATE DEVELOPER-C Other Provider Active Salas Winslow MD Other [...] Santos MD Other Provider Active Kathy Taylor , ALLYSSA Other Provider Active Pietro Corral MD Other Provider Active Penny Mike MD Other Provider Active Susan Quarles , PLATE DEVELOPER-C Other Provider Active Gume Macedo , DO Other Provider Active Zohaib Akins II, MD Other Provider Active Team Status: Inactive Member Role Status Dates Ayanna Vicente , DO Primary Care Provider, Family Provid er Active James Redding MD Emergency Provider Active Bertram Garrison MD Admit Provider, Attending Provider Active Team Status: Active Member Role Status Dates Ayanna Vicente DO Family Provider Active Ayanna Vicente DO Primary Care Provider Active Cnc Milling Machine Operator Relationship Specialty Start Date End Date Ayanna Vicente, DO [address] [place] [address] PCP - General Family Medicine 08/01/11 Ayanna Vicente, DO [address] [place] [address] Referring Family Medicine 10/04/20 Ayanna Vicente, DO [address] [place] [address] Referring Family Medicine 01/09/21 Cnc Milling Machine Operator Relationship Specialty Start Date End Date Ayanna Vicente, DO [address] [place] [address] PCP - General Family Medicine 08/01/11 Ayanna Vicente, DO [address] [place] [address] Referring Family Medicine 10/04/20 Ayanna Vicente, DO [address] [place] [address] Referring Family Medicine 01/09/21 Cnc Milling Machine Operator Relationship Specialty Start Date End Date Ayanna Vicente, DO [address] [place] [address] PCP - General Family Medicine 08/01/11 Ayanna Vicente, DO [address] [place] [address] Referring Family Medicine 10/04/20 Ayanna Vicente, DO [address] [place] [address] Referring Family Medicine 01/09/21 Cnc Milling Machine Operator Relationship Specialty Start Date End Date Ayanna Vicente, DO [address] [place] [address] PCP - General Family Medicine 08/01/11 Ayanna Vicente, DO [address] [place] [address] Referring Family Medicine 10/04/20 Ayanna Vicente DO [address] [place] [address] Referring Family Medicine 01/09/21 Team Status: Inactive Member Role Status Dates Ayanna Vicente DO Primary Care Provider, Family Provid er Active Santos Lares MD Attending Provider Active Team Status: Inactive Member Role Status Dates Ayanna Vicente DO Primary Care Provider, Family Provid er Active PABLO Sam Attending Provider Active Cnc Milling Machine Operator Relationship Specialty Start Date End Date Ayanna Vicente DO [address] [place] [address] PCP - General Family Medicine 08/01/11 Ayanna Vicente DO [address] [place] [address] Referring Family Medicine 10/04/20 Ayanna Vicente DO [address] [place] [address] Referring Family Medicine 01/09/21 Cnc Milling Machine Operator Relationship Specialty Start Date End Date Ayanna Vicente MD [address] [place] [address] PCP - General Family Medicine 12/10/22 Cnc Milling Machine Operator Relationship Specialty Start Date End Date Ayanna Vicente MD [address] [place] [address] PCP - General Family Medicine 12/10/22 Team Status: Inactive Member Role Status Dates PABLO Vasquez Attending Provider Active Start: August 12, 2023 End: August 12, 2023 Team Status: Active Member Role Status Dates Ayanna Vicente DO Primary Care Provider Active S tart: October 13, 2023 Melanie Conde LPN Attending Provider Active St art: October 13, 2023 Team Status: Active Member Role Status Kayla Vicente DO Primary Care Provider Active S tart: October 16, 2023 Melanie Conde LPN Attending Provider Active St art: October 16, 2023 Team Status: Inactive Member Role Status Kayla Vicente DO Primary Care Provide r, Attending Provider Active Start: October 17, 2023 End: October 17, 2023 Team Status: Active Member Role Status Kayla Vicente DO Primary Care Provider Active S tart: October 20, 2023 Melanie Conde LPN Attending Provider Active art: October 20, 2023 Team Status: Inactive Member Role Status Kayla Vicente DO Primary Care Provide r, Attending Provider Active Start: October 21, 2023 End: October 21, 2023 Team Status: Inactive Member Role Status Kayla Vicente DO Primary Care Provider Active S tart: January 12, 2024 End: January 12, 2024 Letitia Pereira APRN Attending Provider Active Start: January 12, 2024 End: January 12, 2024 Team Status: Active Member Role Status Kayla Vicente DO Primary [...] May 12, 2024 End: May 12, 2024 Cnc Milling Machine Operator Relationship Specialty Start Date End Date Ayanna Vicente, DO [address] [place] [phone] PCP - General Family Medicine 08/01/11 Ayanna Vicente, DO [address] [place] [address] Referring Family Medicine 10/04/20 Ayanna Vicente, DO [address] [place] [address] Referring Family Medicine 01/09/21 Cnc Milling Machine Operator Relationship Specialty Start Date End Date Ayanna Vicente, DO [address] [place] [address] PCP - General Family Medicine 08/01/11 Ayanna Vicente, DO [address] [place] [address] Referring Family Medicine 10/04/20 Ayanna Vicente, DO [address] [place] [address] Referring Family Medicine 01/09/21 Cnc Milling Machine Operator Relationship Specialty Start Date End Date Ayanna Vicente, DO [address] [place] [address] PCP - General Family Medicine 08/01/11 Ayanna Vicente, DO [address] [place] [address] Referring Family Medicine 10/04/20 Ayanna Vicente DO [address] [place] [address] Referring Family Medicine 01/09/21 Cnc Milling Machine Operator Relationship Specialty Start Date End Date Ayanna Vicente MD [address] [place] [address] PCP - General Family Medicine 12/10/22 Cnc Milling Machine Operator Relationship Specialty Start Date End Date Ayanna Vicente MD [address] [place] [address] PCP - General Family Medicine 12/10/22 Cnc Milling Machine Operator Relationship Specialty Start Date End Date Ayanna Vicente MD [address] [place] [address] PCP - General Family Medicine 12/10/22 Cnc Milling Machine Operator Relationship Specialty Start Date End Date Ayanna Vicente MD [address] [place] [address] PCP - General Family Medicine 12/10/22 Cnc Milling Machine Operator Relationship Specialty Start Date End Date Ayanna Vicente MD [address] [place] [address] PCP - General Family Medicine 12/10/22 Cnc Milling Machine Operator Relationship Specialty Start Date End Date Ayanna Vicente MD [address] [place] [address] PCP - General Family Medicine 12/10/22 Cnc Milling Machine Operator Relationship Specialty Start Date End Date Ayanna Vicente MD [address] [place] [address] PCP - General Family Medicine 12/10/22 Babita Guillaume DO [address] [id number] Referring Physician Neurology 08/09/24 Cnc Milling Machine Operator Relationship Specialty Start Date End Date Ayanna Vicente MD [address] [place] [id number] PCP - General Family Medicine 12/10/22 Babita Guillaume DO [address] [place] [address] Referring Physician Neurology 08/09/24 Team Status: Active [...] Active Start: September 03, 2024 Team Status: Inactive Member Role Status Dates Ayanna Vicente DO Primary Care Provide r, Attending Provider Active Start: November 10, 2024 End: November 10, 2024 Cnc Milling Machine Operator Relationship Specialty Start Date End Date Ayanna Vicente DO [address] [place] [address] PCP - General Family Medicine 08/01/11 Ayanna Vicente DO [address] [place] [address] Referring Family Medicine 10/04/20 Ayanna Vicente DO [address] [place] [address] Referring Family Medicine 01/09/21 Cnc Milling Machine Operator Relationship Specialty Start Date End Date Ayanna Vicente DO [address] [place] [address] PCP - General Family Medicine 08/01/11 Ayanna Vicente DO [address] [place] [address] Referring Family Medicine 10/04/20 Ayanna Vicente DO [address] [place] [address] Referring Family Medicine 01/09/21 Cnc Milling Machine Operator Relationship Specialty Start Date End Date Ayanna Vicente MD [address] [place], [place] [id number] PCP - General Family Medicine 12/10/22 Babita Guillaume DO [address] [place] [address], [place] [id number] Referring Physician Neurology 08/09/24 Cnc Milling Machine Operator Relationship Specialty Start Date End Date Ayanna Vicente MD [address] [place], [place] [id number] PCP - General Family Medicine 12/10/22 Babita Guillaume DO [address] [place] [address], [place] [address] Referring Physician Neurology 08/09/24 Team Status: Inactive Member Role Status Dates Ayanna Vicente DO Primary Care Provider Active S tart: January 27, 2025 End: January 27, 2025 Lesli Arevalo MD Attending Provider Active Start : January 27, 2025 End: January 27, 2025 Team Status: Active Member Role Status Dates Ayanna Vicente DO Primary Care Provider Active S tart: February 09, 2025 Som Azul MD Attending Provider Active Start: February 09, 2025 Team Status: Inactive Member Role Status Dates Ayanna Vicente DO Primary Care Provider Active S tart: February 15, 2025 End: February 15, 2025 Ayanna Vicente DO Attending Provider Active Star t: February 15, 2025 End: February 15, 2025 Goals (unrecognized section and content) Goals may [...] ON THE PRIMARY CLINICAL RECORDS. [facility] [employer] [facility]. provides no warranty or guarantee of the accuracy or completeness of information in this document.
[2025-02-21 07:01] VITALS: BP 115/73; PULSE 73; TEMP 37.4; O2SAT 92
[2025-02-21] MEDS: 0.9 % SODIUM CHLORIDE 500 ML 1000 ML IV (07:18)
[2025-02-21] MEDS: CIPROFLOXACIN IN 5 % DEXTROSE 400 MG/200 ML PREMIX 200 MG IV (07:19)
[2025-02-21] MEDS: LIDOCAINE HCL 2%-EPINEPHRINE 1:200,000 20 ML MDV 9 ML INJ (08:02)
--- NOTE | 2025-02-21 08:04 | W.PM.PROCNOT ---
Date of procedure: 02/21/25 Pre-op diagnosis: M96.1 Post-op diagnosis: same as pre-op Procedure: Procedure Performed by: Som Azul M.D. Procedure: Placement of [employer] 16 contact neuroelectrode trial leads (x two) under fluoroscopic guidance *Needle Corporate Wellness Coordinator at the interspace below T12/L1 *Final Lead Placement Level at the top of the vertebral body T7 Anesthesia: Monitored Anesthesia Care is medically necessary for the procedure due to the procedure requiring the patient to remain motionless for a prolonged period of time. Procedure: Risks, Benefits, Alternatives were reviewed and informed consent was obtained in the preop holding area. All questions were answered appropriately. The patient was brought to the operating room and placed in the prone position with padding under all bony prominences. A pre-procedure time out was performed specifying pt. name, nature site and side of surgery, and allergies. Anesthesia provided appropriate sedation as the skin over the thoracic and lumbar spine were prepped with duraprep and draped in the usual sterile fashion. Under fluoroscopic guidance, the above noted interspace was identified as the site for epidural needle entry. The skin and subcutaneous tissues were anesthetized approximately 1 level inferior to this point with a mixture of 1% lidocaine and 0.25% bupivacaine. Two 14 gauge tuouy needles were inserted to the superior aspect of the lamina just inferior to the target interspace. Then, using loss of resistance technique as well as fluoroscopic guidance, the epidural space was entered. Two [employer] Trial Stimulator Leads were then advanced under intermittent fluoroscopic guidance until the distal tip of the electrode was observed to be in position at the final position noted above. After appropriate electrode placement was achieved, stimulation was tested intraoperatively with multiple lead configurations until concordant paresthesias were obtained covering the areas of the patient's pain. At this point, the needles and stylets were removed carefully and the leads were secured to the skin using steri-strips. The region was covered using a sterile tegaderm bandage. The patient was escorted to the recovery area in stable condition having tolerated the procedure well. Anesthesia: MAC Surgeon: Som Azul Pathology: none sent Condition: stable Disposition: no change
[2025-02-21 08:08] VITALS: BP 103/66; PULSE 65; TEMP 37.1; O2SAT 95
[2025-02-21 08:15] VITALS: BP 96/63; PULSE 60; O2SAT 94
[2025-02-21 08:22] VITALS: BP 101/58; PULSE 60; O2SAT 93
--- NOTE | 2025-02-21 08:29 | PC.NURSE ---
[place] scientific rep at bedside making adjustments to device and educating patient.
== END 2025-02-21 08:45 | disposition home or self-care (01) ==
LOC: SURGOUT 06:47
PROVIDERS: PCP Family Medicine; Visit Provider Anesthesiology
DX: Z01.812 Encounter for preprocedural laboratory examination (principal); M96.1 Postlaminectomy syndrome, not elsewhere classified; D72.829 Elevated white blood cell count, unspecified; E11.8 Type 2 diabetes mellitus with unspecified complications; Z79.84 Long term (current) use of oral hypoglycemic drugs; Z79.85 Long-term (current) use of injectable non-insulin antidiabetic drugs
CPT/HCPCS: 36415; 63650; 82948; C1778; J0744; J2250; J2704; J3010

== ENCOUNTER 2025-02-28 14:01 | Outpatient (OUT) | payer MEDICARE, SELFPAY ==
--- NOTE | 2025-02-28 15:27 | PM.CN ---
Consult Note: HPI Data of Consult Patient: known to practice within the last 3 years Consult date: 02/28/25 Requesting Physician: Som Azul MD Primary Care Provider: AYANNA VICENTE Consult Narrative Reason for consult: low back pain Narrative: 84yof who presents for lead pull after scs trial insertion. she endorses significant pain of >50% with her trial and is very excited to move forward with the implant. cc:: CC: Som Azul MD Review of Systems ROS Status of ROS 10 or more systems reviewed and unremarkable except as noted in history and below [facility] Medical History Failed back syndrome ?M96.1 - Postlaminectomy syndrome, not elsewhere classified (ICD-10) History of blood transfusion ?Z92.89 - Personal history of other medical treatment (ICD-10) Chronic kidney disease ?N18.9 - Chronic kidney disease, unspecified (ICD-10) Extremity edema ?R60.0 - Localized edema (ICD-10) Activity intolerance ?R68.89 - Other general symptoms and signs (ICD-10) Fibromyalgia ?M79.7 - Fibromyalgia (ICD-10) Irritable bowel syndrome with diarrhea ?K58.0 - Irritable bowel syndrome with diarrhea (ICD-10) Leukocytosis ?D72.829 - Elevated white blood cell count, unspecified (ICD-10) Leukemia ?C95.90 - Leukemia, unspecified not having achieved remission (ICD-10) Lung nodule ?R91.1 - Solitary pulmonary nodule (ICD-10) Migraine ?G43.909 - Migraine, unspecified, not intractable, without status migrainosus (ICD-10) Insomnia ?G47.00 - Insomnia, unspecified (ICD-10) Depression ?F32.A - Depression, unspecified (ICD-10) Hypothyroidism (acquired) ?E03.9 - Hypothyroidism, unspecified (ICD-10) Chronic back pain ?M54.9 - Dorsalgia, unspecified (ICD-10) ?G89.29 - Other chronic pain (ICD-10) Hyperlipidemia ?E78.5 - Hyperlipidemia, unspecified (ICD-10) Anemia ?D64.9 - Anemia, unspecified (ICD-10) Osteoarthritis ?M19.90 - Unspecified osteoarthritis, unspecified site (ICD-10) Chronic lymphocytic leukemia ?C91.10 - Chronic lymphocytic leukemia of B-cell type not having achieved remission (ICD-10) Diabetes ?E11.9 - Type 2 diabetes mellitus without complications (ICD-10) Former smoker ?Z87.891 - Personal history of nicotine dependence (ICD-10) High cholesterol ?E78.00 - Pure hypercholesterolemia, unspecified (ICD-10) Hypertension ?I10 - Essential (primary) hypertension (ICD-10) Surgical History History of radiofrequency ablation (RFA) of nerve of lumbar spine ?Z98.890 - Other specified postprocedural states (ICD-10) S/P epidural steroid injection ?Z92.241 - Personal history of systemic steroid therapy (ICD-10) History of cataract extraction with lens replacement History of appendectomy ?Z90.49 - Acquired absence of other specified parts of digestive tract (ICD-10) H/O colonoscopy ?Z98.890 - Other specified postprocedural states (ICD-10) History of total knee arthroplasty ?Z96.659 - Presence of unspecified artificial knee joint (ICD-10) History of hernia repair ?Z98.890 - Other specified postprocedural states (ICD-10) ?Z87.19 - Personal history of other diseases of the digestive system (ICD-10) S/P lumbar fusion ?Z98.1 - Arthrodesis status (ICD-10) S/P hernia surgery ?Z98.890 - Other specified postprocedural states (ICD-10) ?Z87.19 - Personal history of other diseases of the digestive system (ICD-10) H/O: hysterectomy ?Z90.710 - Acquired absence of both cervix and uterus (ICD-10) Family History Other Family history of Parkinson disease Family history of cancer Family history of hypertension Family history of myocardial infarction Family history of stroke Heart disease Social History Within the past year, how often did you have a drink containing alcohol: monthly or less Smoking status: Never smoker Non-prescribed substance use: denies use Highest level of school completed/degree received: high school graduate Little interest or pleasure in doing things: not at all Feeling down, depressed, or hopeless: not at all Meds Home Medications and Allergies Home Medications ?Medication ?Instructions ?Recorded ?Confirmed ?Type B-complex with vitamin C 1 tab PO DAILY 08/25/23 02/21/25 History aspirin 81 mg tablet,delayed 81 mg PO DAILY 08/25/23 02/21/25 History release atorvastatin 20 mg tablet (Lipitor) 20 mg PO DAILY 08/25/23 02/21/25 History cholecalciferol (vitamin D3) 125 125 mcg PO DAILY 08/25/23 02/21/25 History mcg (5,000 unit) capsule ezetimibe 10 mg tablet (Zetia) 10 mg PO DAILY 08/25/23 02/21/25 History levothyroxine 100 mcg tablet 100 mcg PO DAILY 08/25/23 02/21/25 History (Synthroid) lisinopril 10 mg tablet 10 mg PO DAILY 08/25/23 02/21/25 History multivitamin 1 tab PO DAILY 08/25/23 02/21/25 History oxycodone-acetaminophen 5 mg-325 1 tab PO BID PRN pain 08/25/23 02/21/25 History mg tablet pregabalin 225 mg capsule (Lyrica) 225 mg PO BID 08/25/23 02/21/25 History propranolol 60 mg tablet 60 mg PO DAILY 08/25/23 02/21/25 History triamterene 37.5 1 tab PO DAILY 08/25/23 02/21/25 History mg-hydrochlorothiazide 25 mg tablet (Maxzide-25mg) venlafaxine 75 mg capsule,extended 75 mg PO DAILY 08/25/23 02/21/25 History release 24 hr (Effexor XR) zolpidem 5 mg tablet 5 mg PO DAILY 08/25/23 02/21/25 History insulin glargine 100 unit/mL (3 36 unit subcut QPM 02/09/25 02/21/25 History mL) subcutaneous pen (Lantus Solostar U-100 Insulin) magnesium oxide 400 mg (241.3 mg 400 mg PO DAILY 02/09/25 02/21/25 History magnesium) tablet metformin 500 mg tablet 500 mg PO BID 02/09/25 02/21/25 History Allergies Allergy/AdvReac Type Severity Reaction Status Date / Time cefpodoxime (From Vantin) Allergy Unknown Unknown Verified 02/21/25 07:08 Exam Narrative Exam Narrative: Psych-alert and oriented x 3. Attentive and appropriate, constitutionally normal, displays normal mood and affect per situation.? There are no obvious deficits in memory, reasoning, or intellect.? Skin-no obvious rashes, bruising, erythema noted to the patient's area of pain. Extremities- extremities are warm with minimal edema and palpable pulses. Lumbar-no significant tenderness to palpation noted in the lumbar spine and paraspinal musculature.? Pain is elicited with extension, and lateral rotation of the lumbar spine. Range of motion is slightly diminished with these motions due to pain. Coordination remains intact.? Gait remains non-antalgic. Assessment and Plan Assessment and Plan (1) Failed back syndrome: (2) Lumbar postlaminectomy syndrome: Plan 84yof who presents for scs trial lead pull. leads were removed with the tips intact. insertion site was found to be clean, dry, and intact. we will move forward with the implant given her significant relief with her trial. she will follow up after the implant.
== END 2025-02-28 14:02 | disposition home or self-care (01) ==
LOC: PM 14:03
PROVIDERS: PCP Family Medicine; Visit Provider Anesthesiology
DX: M96.1 Postlaminectomy syndrome, not elsewhere classified (principal)
CPT/HCPCS: G0463

== ENCOUNTER 2025-03-07 14:51 | Outpatient (OUT) | payer MEDICARE, SELFPAY ==
--- OUTSIDE RECORDS SUMMARY | 2024-11-30 04:45 | XMS_ITS ---
Author Organization [facility] in [place] Address [address] [place] [address] Care Team Providers Care Creative Writing English Professor Name Role Phone Dmitriy Presley DO Primary Care Provider Unavailab Carolin Mc Unavailable [phone] REASON FOR VISIT New PT Onc Encounters Encounter Location Date Provider Diagnosis [facility] [address] [place] [address] 11/30/2024 Carolin Silva Plan Of Treatment Next Appt Details Provider Name:Carolin Silva , 06/28/2025 01:00:00 PM, [address] [place], [address], Progress Notes * Viki WASHBURNOB: 2 (84 yo F)Acc No.[id number]:11/30/2024 UNLOCKED PROGRESS NOTE Progress Notes Patient: Kathy GUILLEN Provider: Rolo Silva M.D. :1940 A ge:84 Y S ex:Female Date:11/30/2024 Address:[address] [place], [place] [address], [id number] Pcp:Dmitriy Presley DO Subjective: * Chief Complaints: * 1 . New PT Onc. * Medical History: Objective: * Vitals: Assessment: Plan: * Treatment: * * Electronic signature of Reina Silva MD, [id number] on 03/07/2025 at 02:53 PM EDT Sign off status: Pending Visit Status: P EN (Pending) * Provider: Rolo Silva M.D. Date: 0 11/30/2024 Generated for Birgit sultana/Zena/Isha on: 0 03/07/2025 02:53 PM EDT
--- OUTSIDE RECORDS SUMMARY | 2025-02-22 09:15 | XMS_ITS ---
Author Organization The [facility] in [place] Address [address] [place] [address] Care Team Providers Care Carpet Renovator Name Role Phone Dmitriy Presley DO Primary Care Provider Unavailab Carolin Mc Unavailable [phone] REASON FOR VISIT MD Encounters Encounter Location Date Provider Diagnosis [facility] Oncology [address] [place] [address] 02/22/2025 Carolin Silva Plan Of Treatment Next Appt Details Provider Name:Carolin Silva , 06/28/2025 01:00:00 PM, [address] [place], [address], Progress Notes * Viki WASHBURNOB: 2 (84 yo F)Acc No.[id number]:02/22/2025 UNLOCKED PROGRESS NOTE Progress Notes Patient: Kathy GUILLEN Provider: Rolo Silva M.D. :1940 A ge:84 Y S ex:Female Date:02/22/2025 Address:[address] [place], [place] [address] Pcp:Dmitriy Presley DO Subjective: * Chief Complaints: * 1 . MD. * Medical History: Objective: * Vitals: Assessment: Plan: * Treatment: * * Electronic signature of Reina Silva MD, [id number] on 03/07/2025 at 02:52 PM EDT Sign off status: Pending Visit Status: C ANC (Cancelled) * Provider: Rolo Silva M.D. Date: 0 02/22/2025 Generated for Birgit sultana/Zena/Isha on: 0 03/07/2025 02:52 PM EDT
--- OUTSIDE RECORDS SUMMARY | 2025-03-01 07:45 | XMS_ITS ---
Author Organization The [facility] in [place] Address [address] [place] [address] Care Team Providers Care Concrete Block Maker Name Role Phone Dmitriy Presley DO Primary Care Provider Unavailab Carolin Mc Unavailable [phone] REASON FOR VISIT MD Encounters Encounter Location Date Provider Diagnosis The [facility] Oncology [address] [place] [address] 03/01/2025 Carolin Silva Plan Of Treatment Next Appt Details Provider Name:Carolin Silva , 06/28/2025 01:00:00 PM, [address] [place], [address], Progress Notes * Viki WASHBURNOB: 2 (84 yo F)Acc No.[id number]:03/01/2025 UNLOCKED PROGRESS NOTE Progress Notes Patient: Kathy GUILLEN Provider: Rolo Silva M.D. :1940 A ge:84 Y S ex:Female Date:03/01/2025 Address:[address] [place], [place] [address] Pcp:Dmitriy Presley DO Subjective: * Chief Complaints: * 1 . MD. * Medical History: Objective: * Vitals: Assessment: Plan: * Treatment: * * Electronic signature of Reina Silva MD, [id number] on 03/07/2025 at 02:53 PM EDT Sign off status: Pending Visit Status: P EN (Pending) * Provider: Rolo Silva M.D. Date: 0 03/01/2025 Generated for Birgit sultana/Zena/Isha on: 0 03/07/2025 02:53 PM EDT
--- OUTSIDE RECORDS SUMMARY | 2025-03-07 14:53 | XMS_ITS | Clinical Summary ---
Author Organization [facility] Address [address], [address] [place] [address] Care Team Providers Care Utility Driver Name Role Phone Dmitriy Presley DO Primary [...] [employer] MEDICARE SUPP Care Teams Utility Driver Relationship Specialty Start Date End Date Dmitriy Presley DO PCP - General Family Medicine 02/05/19
--- OUTSIDE RECORDS SUMMARY | 2025-03-07 14:53 | XMS_ITS | Encounter Summary ---
Author Organization [facility] Address [address] [place] [address] Care Team Providers Care Manager Gallery Name Role Phone Dmitriy Presley DO Primary Care Provider [phone] Dmitriy Presley DO Unavailable [phone] Dmitriy Presley DO Unavailable [phone] Source Comments In the event this information is protected by the Federal Confidentiality of Alcohol and Drug AbusePatient Records regulations: The Federal rules restrict any use of the information to criminally investigate or prosecute any alcohol or drug abuse patient.[facility] Encounter Details Date Type Department Care Team (Late st Contact Info) Description 04/03/2022 Abstract Hematology/Oncology [address] [place] [address] Santos Lares MD [address] [facility] [place] [address] Social History Tobacco Use Types [...] ot on file 03/12/2021 Data from: https://www.neighborhoodatlas.medicine.[facility].edu/. Last address used for calculation Not [...] 12/19/2025 11:00 AM EDT Office Visit Rheumatology [address] [place] [address] [place] [address] [place] [address] Return in about 1 year (around 12/17/2025). documented as of this encounter Visit Diagnoses Not on filedocumented in this encounter Care Teams Manager Gallery Relationship Specialty Start Date End Date Dmitriy Presley DO [address] [place] [address] PCP - General Family Medicine 08/01/11 Dmitriy Presley DO [address] [place] [address] Referring Family Medicine 10/04/20 Dmitriy Presley DO [address] [place] [address] Referring Family Medicine 01/09/21 documented as of this encounter
--- OUTSIDE RECORDS SUMMARY | 2025-03-07 14:53 | XMS_ITS | Encounter Summary ---
Author Organization [facility] Address [facility] [place] [address] Care Team Providers Care Japanese Interpreter Name Role Phone Dmitriy Presley DO Primary Care Provider [phone] Dmitriy Presley DO Unavailable [phone] Dmitriy Presley DO Unavailable [phone] Source Comments In the event this information is protected by the Federal Confidentiality of Alcohol and Drug AbusePatient Records regulations: The Federal rules restrict any use of the information to criminally investigate or prosecute any alcohol or drug abuse patient.[facility] Encounter Details Date Type Department Care Team (Late st Contact Info) Description 05/10/2024 Patient [facility] -[address] [place] [address] Leona Romero RPh At your next appointment, choose [facility]. Social History Tobacco Use Types [...] is lower risk 4 02/07/2023 Data from: https://www.neighborhoodatlas.[facility].edu/. Last address used for calculation [address] [...] 12/19/2025 11:00 AM EDT Office Visit Rheumatology [address] [place] [address] [place] [address] [place] [address] Return in about 1 year (around 12/17/2025). documented as of this encounter Visit Diagnoses Not on filedocumented in this encounter Care Teams Japanese Interpreter Relationship Specialty Start Date End Date Dmitriy Presley DO [address] [place] [address] PCP - General Family Medicine 08/01/11 Dmitriy Presley DO [address] [place] [address] Referring Family Medicine 10/04/20 Dmitriy Presley DO [address] [place] [address] Referring Family Medicine 01/09/21 documented as of this encounter
--- OUTSIDE RECORDS SUMMARY | 2025-03-07 14:53 | XMS_ITS | Encounter Summary ---
Author Organization [facility] Address [address] [place] [address] Care Team Providers Care Wheelchair Van Driver Name Role Phone Dmitriy Presley DO Primary Care Provider [phone] Dmitriy Presley DO Unavailable [phone] Dmitriy Presley DO Unavailable [phone] Source Comments In the event this information is protected by the Federal Confidentiality of Alcohol and Drug AbusePatient Records regulations: The Federal rules restrict any use of the information to criminally investigate or prosecute any alcohol or drug abuse patient.[facility] Encounter Details Date Type Department Care Team [...] N ot on file 03/12/2021 Data from: https://www.neighborhoodatlas.medicine.[facility]/. Last address used for calculation Not on [...] 12/19/2025 11:00 AM EDT Office Visit Rheumatology [address] [place] [address] [place] [address] [place] [address] Return in about 1 year (around 12/17/2025). documented as of this encounter Visit Diagnoses Not on filedocumented in this encounter Care Teams Wheelchair Van Driver Relationship Specialty Start Date End Date Dmitriy Presley DO [address] [place] [address] PCP - General Family Medicine 08/01/11 Dmitriy Presley DO [address] [place] [address] Referring Family Medicine 10/04/20 Dmitriy Presley DO [address] [place] [address] Referring Family Medicine 01/09/21 documented as of this encounter
--- OUTSIDE RECORDS SUMMARY | 2025-03-07 14:53 | XMS_ITS | Encounter Summary ---
Author Organization [facility] Address [facility] [place] [address] Care Team Providers Care Welder Tech Name Role Phone Dmitriy Presley DO Primary Care Provider [phone] Dmitriy Presley DO Unavailable [phone] Dmitriy Presley DO Unavailable [phone] Source Comments In the event this information is protected by the Federal Confidentiality of Alcohol and Drug AbusePatient Records regulations: The Federal rules restrict any use of the information to criminally investigate or prosecute any alcohol or drug abuse patient.[facility] Encounter Details Date Type Department Care Team (Late st Contact Info) Description 11/11/2024 Patient [facility] -[address] [place] [id number] Leona Romero RPh At your next appointment, choose [facility]. Social History Tobacco Use [...] lower risk 4 02/07/2023 Data from: https://www.neighborhoodatlas.medicine.[facility].edu/. Last address used for calculation [address] [...] 12/19/2025 11:00 AM EDT Office Visit Rheumatology [address] [place] [address] [place] [address] [facility] [address] Return in about 1 year (around 12/17/2025). documented as of this encounter Visit Diagnoses Not on filedocumented in this encounter Care Teams Welder Tech Relationship Specialty Start Date End Date Dmitriy Presley DO [address] [place] [address] PCP - General Family Medicine 08/01/11 Dmitriy Presley DO [address] [place] [address] Referring Family Medicine 10/04/20 Dmitriy Presley DO [address] [place] [address] Referring Family Medicine 01/09/21 documented as of this encounter
--- OUTSIDE RECORDS SUMMARY | 2025-03-07 14:53 | XMS_ITS | Clinical Summary ---
Author Organization [facility] Address [address] [place] [address] Care Team Providers Care Full Stack Developer Name Role Phone Dmitriy Presley DO Primary Care Provider [phone] Dmitriy Presley DO Unavailable [phone] Dmitriy Presley DO Unavailable [phone] Allergies Active Allergy Reactions Criticality Noted Date [...] 12/17/2024 10:20 AM EDT Office Visit Rheumatology [address] [place] [address] Bertrand Morrow MD Fibromyalgia (Primary Dx); Primary [...] is lower risk 4 02/07/2023 Data from: https://www.neighborhoodatlas.medicine.[facility].edu/. Last address used for calculation [address] [facility] 02/07/2023 Comments No Sex and Gender [...] 12/19/2025 11:00 AM EDT Office Visit Rheumatology [address] [place] [address] [place] [address] [facility] [address] Return in about 1 year (around 12/17/2025). [...] history exists RSV Vaccine Completed 06/23/2023 Insurance [facility] Address: [address] [place] [address] MEDICARE Care Teams Full Stack Developer Relationship Specialty Start Date End Date Dmitriy Presley DO [address] [place] [address] PCP - General Family Medicine 08/01/11 Dmitriy Presley DO [address] [place] [address] Referring Family Medicine 10/04/20 Dmitriy Presley DO [address] [place] [address] Referring Family Medicine 01/09/21
--- OUTSIDE RECORDS SUMMARY | 2025-03-07 14:53 | XMS_ITS | Patient Health Record ---
Author Organization [facility] [place] Address [address] [place] [address] Care Team Providers Care Business Relations Manager Name Role Phone Dmitriy Presley DO Primary Care Provider Unavailab Carolin Mc Unavailable [phone] Reason For Referral No Information Encounters Encounter Location Date Provider Diagnosis [facility] [address] [place] [address] 03/01/2025 Carolin Silva [facility] [address] [place] [address] 11/30/2024 Carolin Silva Plan Of Treatment Next Appt Details Provider Name:Carolin Silva , 06/28/2025 01:00:00 PM, [address] [place], [address], Insurance Providers Payer Name Payer Address Payer Phone Subscriber Number Group Number Insured Name Patient Relationship to Insured Coverage Start Date Coverage End Date [place] [address] [place] [address] [id number] Kathy Washburn Self - patient is the insured 7 [facility] [address] [facility] [place] [address] [phone] [id number] Kathy Washburn Self - patient is the insured 7
--- OUTSIDE RECORDS SUMMARY | 2025-03-07 14:53 | XMS_ITS | Clinical Summary ---
Author Organization [facility] Address [address] [place] [address] Phone Care Team Providers Care Shaker Plate Operator Name Role Phone Dmitriy Presley DO Primary Care Provider [phone] Social History Tobacco Use Types Packs/Day Years [...] age to complete this topic Care Teams Shaker Plate Operator Relationship Specialty Start Date End Date Dmitriy Presley DO PCP - General 05/13/18
--- OUTSIDE RECORDS SUMMARY | 2025-03-07 15:00 | XMS_ITS | CCD ---
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 Name Role Phone Ayanna Vicente Primary Care Provider Ayanna Vicente Unavailable [phone] Ayanna Vicente Unavailable Ayanna Vicente Unavailable Ayanna Milner Unavailable DO Ayanna Vicente Primary Care Provider MD James Redding Emergency Provider MD Bertram Garrison Admit Provider MD Bertram Garrison Attending Provider [phone] MD Galo Max Admit Provider MD Galo Max Attending Provider ALLYSSA Penn Other Provider Unavailable ALLYSSA Orourke Other Provider Unavailable ALLYSSA Camejo Other Provider Unavailable ALLYSSA Das Other Provider Unavailable ALLYSSA Acosta Other Provider Unavailable ALLYSSA Wall Other Provider Unavailable MD Yuliana Hale Other Provider MD Herman Kevin Other Provider [place], 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 Kitty Villalobos Other Provider DO Madeline Juarez Other Provider MD Marcio Hernandez Other Provider DO Loco Velasquez Other Provider [phone] MD Elgin Irby Other Provider MD Adali Salamanca Other Provider ART Riojas-BC [...] Other Provider DO Felipe Howard Other Provider [phone] NATALI Montanez Other Provider DO Santiago Fontaine Other Provider MD Tyson De Los Santos Other Provider Claudia, ALLYSSA Chavez Other Provider Unavailable MD Pietro Corral Other Provider MD Penny Mike Other Provider BERTA Quarles-C Susan Briggs Other Provider DO Gume Macedo Other Provider [phone] MD Zohaib Akins II Other Provider DO Ayanna Vicente Attending Provider Ayanna Vicente DO Primary Care Provider Ayanna Vicente DO Unavailable Ayanna Vicente DO Unavailable DO Ayanna Vicente Primary Care Provider Ayanna Vicente DO Primary Care Provider Ayanna Vicente DO Unavailable [phone] Ayanna Vicente DO Unavailable DO Ayanna Vicente [...] Unavailable Ayanna Vicente MD Primary Care Provider [phone] DO Ayanna Vicente Primary Care Provider DO Ayanna Vicente Attending Provider DO Ayanna Vicente Primary Care Provider DO Ayanna Vicente Attending Provider [phone] Ayanna Vicente DO Primary Care Provider [phone] Ayanna Vicente DO Unavailable [phone] Ayanna Vicente DO Unavailable DO Ayanna Vicente Primary Care Provider DO Ayanna Vicente Attending Provider Ayanna Vicente DO Primary Care Provider Sakina WISDOM, Ayanna Attending Provider Aundrea DO, Christopher Unavailable [phone] Ayanna Vicente DO Primary Care Provider [phone] Ayanna Vicente DO Attending Provider [phone] Marker DO, Tri Vasquez Attending Provider [phone] Ayanna Vicente DO Attending Provider [phone] AYANNA VICENTE Primary Care Unavailable SELF Referring Unavailable ZOHAIB GERMAN Attending Unavailable AYANNA VICENTE Primary Care Unavailable AYANNA VICENTE Primary Care Unavailable CHAD FREITAS Attending Unavailable ZOHAIB GERMAN Attending Unavailable AYANNA VICENTE Primary Care Unavailable Ayanna Vicente MD Primary Care Provider [phone] Aundrea WISDOM Christopher Unavailable ESVIN DUBON Attending Unavailable JAMES SMITH Attending Unavailable BABITA GUILLAUME Attending Unavailable AYANNA VICENTE Referring Unavailable MOE BETTS Attending Unavailable ROXANE, MEO Hgoan Attending Unavailable ENRIQUE HAMMONDS Attending Unavailable BABITA GUILLAUME Referring Unavailable Aundrea WISDOM, Christopher Unavailable [phone] Ayanna Vicente DO Attending Provider Sakina WISDOM, Ayanna Primary Care Provider Lesli Arevalo MD Attending Provider [phone] Roxane WISDOM, Moe Attending Provider [phone] Ayanna Vicente Admitting Unavailable Ayanna Vicente Attending Unavailable Roxane, Moe Attending Unavailable Ayanna Vicente Primary Care Unavailable Itjose, Moe Admitting Unavailable Marker, Tri Vasquez Admitting Unavailable Marker, Tri Vasquez Attending Unavailable Ayanna Vicente Admitting Unavailable Ayanna Vicente Attending Unavailable Ayanna Vicente Attending Unavailable Ayanna Vicente Admitting Unavailable Ayanna Vicente Primary Care Unavailable Ayanna Vicente Admitting Unavailable Sakina, Ayanna Primary Care Unavailable Ayanna Vicente Attending Unavailable Sakina, Ayanna Admitting Unavailable Sakina, Ayanna Primary Care Unavailable Sakina, Ayanna Attending Unavailable Orzech, Sujey X Attending Unavailable SUSAN RANDOLPH Attending Unavailable SUSAN RANDOLPH Attending Unavailable SUSAN RANDOLPH Attending Unavailable Ayanna Vicente DO Primary Care Provider Gieditis MD, Andrius Attending Provider Ayanna Vicente DO Attending Provider Giedraitis MD, Andrius Vytautas Attending Unavailable Giedraitis [...] Unavailable Giedraitis MD, Andrius Vytautas Attending Unavailable Allergies Allergy Classification Reported Allergen(s) Allergy Type Date of Onset Reaction(s) Facility Cephalosporins (antibiotic) (1 source) Cephalosporins (Antibiotic) Drug Allergy 02-20-20 04 Hives, Swelling [facility] (20 sources) cefpodoxime; Translations: [Vantin] Drug Allergy 12-24-19 16 Eye swelling (finding) [facility] (20 sources) cepahlosporins Propensity to adverse reactions Unknown [facility] Other (20 sources) Cephalosporins (Antibiotic); Translations: [Cephalosporins] Allergy to substance 02-20-20 04 Hives, Swelling, Swelling (morphologic abnormality), Eye swelling (finding), Unknown [facility] Comment on above: Eyes swelled also (20 sources) cefpodoxime; Translations: [CEFPODOXIME] Drug Allergy 02-17-20 19 Unknown, Other [facility] (1 source) Amoxicillin Drug Allergy 12-24-19 16 [facility] (15 sources) Medicinal cephalosporin and acting as antibacterial agent (FN) Drug allergy Unknown [facility] Other (2 sources) Bacitracin / Neomycin / Polymyxin B Drug Allergy Unknown [facility] Other (20 sources) Bacitracin; Translations: [bacitracin] Drug Allergy 08-12-19 Unknown Reaction [facility] (20 sources) Neomycin; Translations: [neomycin] Drug Allergy 08-12-19 Unknown Reaction [facility] (20 sources) polymyxin B; Translations: [polymyxin B] Allergy to substance 08-12-19 Unknown Reaction [facility] (1 source) cefpodoxime Drug Allergy 01-28-20 [facility] Repository Medications Current Medications Medication Drug Class(es) [...] day(s), # 14 tab(s), Refills(s) 0, Pharmacy: [facility], 178, cm, 02/08/25 9:03:00 EDT, Height/Length Dosing, 105.1, kg, 07/29/25 9:03:00 EDT, Weight Dosing Start Date: 02/08/25 [...] urethra 3x per week for UTI prevention, [facility], 178, cm, 02/08/25 9:03:00 EDT, Height/Length [...] urethra 3x per week for UTI prevention, [facility], 178, cm, 08/16/24 9:10:00 EST, Height/Length Dosing, 103, kg, 08/16/24 9:10:00 EST, Weight Dosing 08/16/2024 Active Start: 08-16-2024 Estrace 0.1 mg /g Cream See Instructions, 42.5 gm, Refill(s) 6, apply a pea-sized amount vaginally and around the urethra 3x per week for UTI prevention, [facility], 178, cm, 08/16/24 9:10:00 EST, [...] 12:00am January 24, 2022 3:09pm Start: 11-28-2020 [address] UNIT/ML as directed Subcutaneous [...] magnesium) tablet Active 400 MG PO Daily January 27, 2025 12:00am Complies with drug [...] incontinence, # 90 tab(s), Refills(s) 3, Pharmacy: [facility], 178, cm, 02/11/23 11:43:00 EDT, [...] (20 sources) Muscle Relaxant Start: 017 End: 022 take 1 tablet by mouth every eight [...] 4:43pm docusate sodium 50 mg / sennosides, care [...] tablet Discontinued 10 MG PO Daily at 0800 January 13, 2022 4:48pm January 15, 2022 12:05pm Start: 01-13-2022 End: 01-15-2022 take 10 mg by mouth once daily Furosemide Discontinued 10 MG PO Daily at 0800 January 13, 2022 3:48pm January 15, 2022 [...] MCG PO Daily at 0730 30 30 Flori 14th, 2022 12:00am October 21, 2023 3:14pm Start: [...] Discontinued 10 MG PO Daily at bedtime January 23, 2022 11:00pm October 21, 2023 [...] 2017 12:00am January 13, 2022 4:47pm sennosides, care home 8.6 mg oral tablet (3 sources) Start: [...] 20 mg Start: 04-22-2018 Kenalog -40 mg Apr, 40 [...] 03-08-2024 Episodic Other aftercare (6 sources) Other alf (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 therapy; Translations: [Long-term (current) use of other medications] Onset: 02-06-2022 Resolved: 02-06-2022 Episodic Other aftercare (18 sources) Long-term current use of drug therapy; 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] 10-21-2023 Episodic Other aftercare (2 sources) H/O: high risk medication; Translations: [Other alf (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 therapy] 06-17-2024 Episodic Other aftercare (1 source) Drug therapy finding; Translations: [Other alf (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 therapy] 12-17-2024 Episodic Other aftercare (1 source) USP (current) use of insulin; Translations: [Type 2 [...] Basophils/100 WBC (Bld) 0.0 % Low 0.2-2.0 F [facility] Eosinophils/100 WBC Manual c nt (Bld)Ordered By: Andrius Giedraitis on 02-09-2025 Eosinophils/100 WBC (Bld) 0.0 % Low 0.9-7.0 [facility] Erythrocyte distribution wid th Auto (RBC) [Ratio]Ordered By: Som Azul on 02-09-2025 Erythrocyte distribution width (RBC) [Ratio] 13.7 % 11.0-15.0 [facility] Estimated glomerular filtrat ion rate (GFR) non- AmericanOrdered By: Som Azul on 02-09-2025 GFR/1.73 sq M.predicted among non-blacks MDRD (S/P/Bld) [Vol rate/Area] 35 mL/min/{1.73_m2} Low >=60 mL/min/1.73 m 2 [facility] Hematocrit Auto (Bld) [Volum e fraction]Ordered By: Som Azul on 02-09-2025 Hematocrit (Bld) [Volume fraction] 36.4 % 36.0-48.0 [facility] Hemoglobin [Mass/volume] in BloodOrdered By: Som Azul on 02-09-2025 Hemoglobin (Bld) [Mass/Vol] 11.6 g/dL Low 12.0-16.0 [facility] Laboratory - Chemistry and C hemistry - challengeOrdered By: Som Azul on 02-09-2025 Calcium [Mass/Vol] 9.0 mg/dL 8.5-10.1 [facility] Chloride [Moles/Vol] 107 mmol/L 98-107 [facility] CO2 [Moles/Vol] 30.8 mmol/L 21.0-32.0 [facility] Creatinine [Mass/Vol] 1.43 mg/dL High 0.55-1.02 [facility] GFR/1.73 sq M.predicted MDRD (S/P/Bld) [Vol rate/Area] 43 mL/min/{1.73_m2} Low >=60 mL/min/1.73 m 2 [facility] Glucose [Mass/Vol] 120 mg/dL High 74-106 [facility] Potassium [Moles/Vol] 5.0 mmol/L 3.5-5.1 [facility] Sodium [Moles/Vol] 143 mmol/L 136-145 [facility] Urea nitrogen [Mass/Vol] 36.0 mg/dL High 7.0-18.0 [facility] Urea nitrogen/Creatinine [Mass ratio] 25.2 mg/mg [facility] Laboratory - Hematology and Cell countsOrdered By: Andrius Giedraitis on 02-09-2025 Lymphocytes/100 WBC (Bld) 51.0 % 20.5-60.0 [facility] Monocytes/100 WBC (Bld) 5.0 % 1.7-12.0 [facility] Leukocytes [#/volume] correc andreina for nucleated erythrocytes in Blood by Automated counOrdered By: Andrius Giedraitis on 02-09-2025 WBC corrected for nucl RBC Auto (Bld) [#/Vol] 19.3 10 3/uL High 4.0-11.0 [facility] MCH Auto (RBC) [Entitic mass ]Ordered By: Andrius Giedraitis on 02-09-2025 MCH (RBC) [Entitic mass] 30.2 pg 26.7-34.0 [facility] MCHC Auto (RBC) [Mass/Vol]Or dered By: Andrius Giedraitis on 02-09-2025 MCHC (RBC) [Mass/Vol] 31.9 g/dL 29.9-35.2 [facility] MCV Auto (RBC) [Entitic vol] Ordered By: Andrius Giedraitis on 02-09-2025 MCV (RBC) [Entitic vol] 94.8 fL 81.0-99.0 [facility] No Panel InformationOrdered By: Andrius Giedraitis on 02-09-2025 Absolute Basophils (Manual) 0.00 10 3/uL 0.00-0.10 [facility] Eosinophils # (Manual) 0.00 10 3/uL 0.00-0.70 [facility] Lymphocytes # (Manual) 9.84 10 3/uL High 1.20-3.80 [facility] Monocytes # (Manual) 0.96 10 3/uL High 0.30-0.80 [facility] Segmented Neutrophils # (Manual) 8.49 10 3/uL High 1.4-6.5 [facility] Platelet mean volume Auto (B ld) [Entitic vol]Ordered By: Andrius Giedraitis on 02-09-2025 Platelet mean volume (Bld) [Entitic vol] 11.8 fL 9.5-13.5 [facility] Platelets Auto (Bld) [#/Vol] Ordered By: Andrius Giedraitis on 02-09-2025 Platelets (Bld) [#/Vol] 213 10 3/uL 150-450 [facility] RBC Auto (Bld) [#/Vol]Ordere d By: Andrius Giedraitis on 02-09-2025 RBC (Bld) [#/Vol] 3.84 10 6/uL Low 4.20-5.40 [facility] Segmented neutrophils/100 WB C Manual cnt (Bld)Ordered By: Andrius Giedraitis on 02-09-2025 Segmented neutrophils/100 WBC (Bld) 44.0 % 43.0-75.0 [facility] Serum or plasma anion gap de terminationOrdered By: Andrius Giedraitis on 02-09-2025 Anion gap [Moles/Vol] 10.2 mmol/L [facility] Smudge cell detectionOrdered By: Andrius Giedraitis on 02-09-2025 Smudge cells LM Ql (Bld) SEEN [facility] Ambulatory Visit Summaryon 0 02-08-2025 Ambulatory Visit [...] 10:20 AM EDT With: JOSE Stewart APRN, Sujey Lopez Where: [facility] [place] [id number]- You Need to Schedule the Following Appointments Follow Up with Follow up in Spring When: Medications What How Much When Instructions New ciprofloxacin (Cipro 500 mg Tab) 1 Tablets By Mouth Every 12 hours Duration: 7 Days Pickup at [facility] Unchanged estradiol topical (Estrace 0.1 mg/ g Cream) See instructions apply a pea-sized amount vaginally and around the urethra 3x per week for UTI prevention Pickup at [facility] Unchanged trospium (trospium 20 mg oral [...] Drug Ma (more content not included)... Normal [facility] Urology Office/Clinic Noteon 02-08-2025 Urology Office/Clinic Note Urology Office/Clinic Note Chief Complaint 6 month F/U HPI Staff 84 year old female here for 6 month f/u Previous DX: recurrent UTI, urgency incontinence Trospium IR PRN, Estradiol 3x week Renal US 6/11/25 C&S 09/03/24 - 75,000 colonies/ml mixed bacterial [...] (N39.41: Urge incontinence) S/p Botox 100u 08/30/21. [place] sxs only improved for a few weeks or so. Wasn't very impressed w improvement. Does not wish to repeat Botox. Failed Myrbetriq and Oxybutynin previously. TODAY: BBSQ 18 poor control. Using Trospium IR PRN when traveling or going out of the house. Helps a lot. Minimizes side effects by using PRN. Did review [employer] brochure I provided last ov. Came w some questions. Discussed at length today. Pt would like to continue to think about it but is interested in BNE in future. Ordered: Complex E&M Add on G2211 E&M of Est. Patient Moderate 30-39 Min 55477 2. 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 Patient Moderate 30-39 Min 86054 Orders: ciprofloxacin, 500 mg = 1 tab(s), Oral, q12hr, X 7 day(s), # 14 tab(s), Refills(s) 0, Pharmacy: [facility], 178, cm, 02/08/25 9:03:00 EDT, Height/Length Dosing, 105.1, kg, 02/08/25 9:03:00 EDT, Weight Dosing estradiol topical, See Instructions, 42.5 gm, Refill(s) 6, apply a pea-sized amount vaginally and around the urethra 3x per week for UTI prevention, [facility], 178, cm, 02/08/25 9:03:00 EDT, Height/Length [...] oral tablet (more content not included)... Normal [facility] Comment on above: Result Comment: Elec tronically Signed By: SUSAN RANDOLPH PA-C\.br\Date and Time Signed: 02/08/25 10:51 EDT [place] barium enemaon 01-19-2025 FL barium enema [facility] [address] Fluoroscopy Report Signed Patient: Kathy Washburn MR#: [id number] : 1940 Acct:[id number] Age/Sex: 84 / F ADM Date: 01/19/25 Loc: XD Room: Type: [facility] Attending Dr: Moe Betts DO Copies to: [...] Arndt M.D. 01/19/2025 2:20 PM Dictation Location: [place] [address] Transcribed By: [facility] 01/19/25 1420 Dictated By: Stanford Arndt DO 01/19/25 1417 Signed By: 01/19/25 1420 Normal [facility] Fluoroscopy reportOrdered By : Stanford Arndt on 01-19-2025 RF Unspecified body region Views [facility] [place] [address] [place] [address] Fluoroscopy Report Signed Patient: Kathy Washburn MR#: [id number] : 1940 Acct:[id number] Age/Sex: 84 / F ADM Date: 5 Loc: Room: Type: [facility] Attending Dr: Moe Betts DO Copies to: [...] Arndt M.D. 01/19/2025 2:20 PM Dictation Location: [place] [address] Transcribed By: [facility] 01/19/25 1420 Dictated By: Stanford Arndt DO 01/19/25 1417 Signed By: 01/19/25 1420 [facility] Erythrocyte distribution wid th Auto (RBC) [Ratio]Ordered By: Lesli Arevalo on 01-17-2025 Erythrocyte distribution width (RBC) [Ratio] 14.3 % 11.0-15.0 [facility] Estimated glomerular filtrat ion rate (GFR) non- AmericanOrdered By: Lesli Arevalo on 01-17-2025 GFR/1.73 sq M.predicted among non-blacks MDRD (S/P/Bld) [Vol rate/Area] 43 mL/min/{1.73_m2} Low >=60 mL/min/1.73 m 2 [facility] Hematocrit Auto (Bld) [Volum e fraction]Ordered By: Lesli Arevalo on 01-17-2025 Hematocrit (Bld) [Volume fraction] 39.4 % 36.0-48.0 [facility] Hemoglobin [Mass/volume] in BloodOrdered By: Lesli Arevalo on 01-17-2025 Hemoglobin (Bld) [Mass/Vol] 12.7 g/dL 12.0-16.0 [facility] Laboratory - Chemistry and C hemistry - challengeOrdered By: Lesli Arevalo on 01-17-2025 Albumin [Mass/Vol] 3.5 g/dL 3.4-5.0 [facility] Calcium [Mass/Vol] 9.0 mg/dL 8.5-10.1 [facility] Chloride [Moles/Vol] 109 mmol/L High 98-107 [facility] CO2 [Moles/Vol] 29.7 mmol/L 21.0-32.0 [facility] Creatinine [Mass/Vol] 1.20 mg/dL High 0.55-1.02 [facility] GFR/1.73 sq M.predicted MDRD (S/P/Bld) [Vol rate/Area] 52 mL/min/{1.73_m2} Low >=60 mL/min/1.73 m 2 [facility] Glucose [Mass/Vol] 99 mg/dL 74-106 [facility] Magnesium [Mass/Vol] 1.5 mg/dL Low 1.8-2.4 [facility] Potassium [Moles/Vol] 4.9 mmol/L 3.5-5.1 [facility] Sodium [Moles/Vol] 146 mmol/L High 136-145 [facility] Urate [Mass/Vol] 6.2 mg/dL High 2.6-6.0 [facility] Urea nitrogen [Mass/Vol] 35.0 mg/dL High 7.0-18.0 [facility] Urea nitrogen/Creatinine [Mass ratio] 29.2 mg/mg [facility] Bilirubin Ql (U) Negative NEGATIVE [facility] Glucose (U) [Mass/Vol] Negative NEGATIVE [facility] Ketones Ql (U) Negative NEGATIVE [facility] pH (U) 6.0 [pH] 5.0-9.0 [facility] Specific gravity (U) [Rel density] 1.025 1.005-1.025 [facility] Urobilinogen Qn (U) 0.2 {Jose'U}/dL 0.2-1.0 [facility] Laboratory - Specimen inform ationOrdered By: Lesli Arevalo on 01-17-2025 Appearance (U) CLEAR CLEAR [facility] Color (U) DK. YELLOW YELLOW [facility] Laboratory - UrinalysisOrder ed By: Lesli Arevalo on 01-17-2025 Leukocyte esterase Test strip Ql (U) Negative NEGATIVE [facility] Mucus Ql (Urine sed) TRACE Abnormal NONE SEEN [facility] Nitrite Ql (U) Negative NEGATIVE [facility] Protein (U) [Mass/Vol] 41.4 mg/dL High <=11.9 [facility] Protein Ql (U) TRACE mg/dL NEG/TRACE [facility] Leukocytes [#/volume] correc andreina for nucleated erythrocytes in Blood by Automated counOrdered By: Lesli Arevalo on 01-17-2025 WBC corrected for nucl RBC Auto (Bld) [#/Vol] 18.8 10 3/uL High 4.0-11.0 [facility] MCH Auto (RBC) [Entitic mass ]Ordered By: Lesli Arevalo on 01-17-2025 MCH (RBC) [Entitic mass] 30.2 pg 26.7-34.0 [facility] MCHC Auto (RBC) [Mass/Vol]Or dered By: Lesli Arevalo on 01-17-2025 MCHC (RBC) [Mass/Vol] 32.2 g/dL 29.9-35.2 [facility] MCV Auto (RBC) [Entitic vol] Ordered By: Lesli Arevalo on 01-17-2025 MCV (RBC) [Entitic vol] 93.6 fL 81.0-99.0 [facility] No Panel InformationOrdered By: Lesli Arevalo on 01-17-2025 25-Hydroxy Vitamin D Total 61.8 ng/mL [facility] Comment on above: <20 ng/mL Vit D defi cient20-<30 ng/mL Vit D [id number] ng/mL Vit D sufficient>100 ng/mL Potential Toxicity Parathyroid Hormone (Intact) 42 pg/mL 15-65 [facility] Comment on above: Performed at: - [address] [id number] Director: Narinder Elam PhD, Phone: [phone] Phosphorus Level 4.1 mg/dL 2.6-4.7 [facility] Urine Bacteria SMALL #/HPF Abnormal NONE SEEN [facility] Urine Occult Blood Negative NEGATIVE [facility] Urine Other Casts NONE SEEN #/LPF NONE SEEN [facility] Urine Other Crystals None Seen #/HPF None Seen [facility] Urine Random Creatinine 119.94 mg/dL 20.0 0-300.0 0 [facility] Urine RBC 0-2 #/HPF 0-2 [facility] Urine Squamous Epithelial Cells RARE #/LPF NONE/RARE [facility] Urine WBC 0-2 #/HPF Abnormal NONE SEEN [facility] Platelet mean volume Auto (B ld) [Entitic vol]Ordered By: Lesli Nelsondir on 01-17-2025 Platelet mean volume (Bld) [Entitic vol] 11.4 fL 9.5-13.5 [facility] Platelets Auto (Bld) [#/Vol] Ordered By: Lesli Mickey on 01-17-2025 Platelets (Bld) [#/Vol] 217 10 3/uL 150-450 [facility] RBC Auto (Bld) [#/Vol]Ordere d By: Lesli Mickey on 01-17-2025 RBC (Bld) [#/Vol] 4.21 10 6/uL 4.20-5.40 [facility] Serum or plasma anion gap de terminationOrdered By: Lesli Mickey on 01-17-2025 Anion gap [Moles/Vol] 12.2 mmol/L [facility] Urine protein/creatinine rat ioOrdered By: Lesli Mickey on 01-17-2025 Protein/Creatinine (U) [Ratio] 0.35 [facility] CNOVon 12-17-2024 CNOV Office Visit (INEZ ) KATHY WASHBURN ([id number]) 1940 F Date Time Provider Department 12/17/24 10:20 AM ZOHAIB GERMAN During your visit today, we recorded the following information about you: Temperature Blood pressure Weight Height 65 degrees 112/71 103.6 kg 1.727 m Zohaib German MD 12/17/2024 10:49 AM Signed [facility] Date of Service: 12/17/2024 Patient: Kathy Washburn Medical Record: [id number] Primary Care Physician: Ayanna Vicente DO Last [...] status and she is working with a rn disease management. There have not been any new health [...] Mixed hyp (more content not included)... Normal [facility] Prakash 11-17-2024 CNPN Telephone ([facility]) KATHY WASHBURN ([id number]) 1940 F Date Time Provider Department 11/17/24 [...] to be following with Dr Silva @ [facility] as this is closer to home for patient. Roxie requested to talk to medical records regarding having records sent to Dr Silva transferred call To Heather Todd. [facility]/17/2024 2:36 PM Signed Records faxed to Dr. Silva [phone]. I called Roxie to let her know [...] Status:Closed by LORI RENNER on 11/17/24 Normal [facility] Acanthocytes [Presence] in B lood by Light microscopyon 11-01-2024 Acanthocytes LM Ql (Bld) Acanthocytes [Presence] in Blood by Light microscopy [facility] Acanthocytes LM Ql (Bld) 1+ [facility] Basophils/100 WBC Manual cnt (Bld)on 11-01-2024 Basophils/100 WBC (Bld) Basophils/100 leukocytes in Blood by Manual count 0.2-2.0 [facility] Basophils/100 WBC (Bld) 2.0 % 0.2-2.0 F [facility] Cholesterol in LDL Calc [Mas s/Vol]on 11-01-2024 Cholesterol in LDL [Mass/Vol] Cholesterol in LDL [Mass/volume] in Serum or Plasma by calculation [facility] Comment on above: <100 mg/dl [id number] 0-129 mg/dl NEAR OR ABOVE [id number] mg/dl BORDERLINE [id number] mg/dl HIGH>190 mg/dl VERY HIGH Cholesterol in LDL [Mass/Vol] 29.2 mg/dL [facility] Comment on above: <100 mg/dl [id number] 0-129 mg/dl NEAR OR ABOVE [id number] mg/dl BORDERLINE [id number] mg/dl HIGH>190 mg/dl VERY HIGH Cholesterol in VLDL Calc [Ma ss/Vol]on 11-01-2024 Cholesterol in VLDL [Mass/Vol] Cholesterol in VLDL [Mass/volume] in Serum or Plasma by calculation [facility] Cholesterol in VLDL [Mass/Vol] 22.8 mg/dL [facility] Eosinophils/100 WBC Manual c nt (Bld)on 11-01-2024 Eosinophils/100 WBC (Bld) Eosinophils/100 leukocytes in Blood by Manual count 0.9-7.0 [facility] Eosinophils/100 WBC (Bld) 1.0 % 0.9-7.0 [facility] Erythrocyte distribution wid th Auto (RBC) [Ratio]on 11-01-2024 Erythrocyte distribution width (RBC) [Ratio] 14.6 % 11.0-15.0 [facility] Estimated glomerular filtrat ion rate (GFR) non- Americanon 11-01-2024 GFR/1.73 sq M.predicted among non-blacks MDRD (S/P/Bld) [Vol rate/Area] Estimated glomerular filtration rate (GFR) non- Low >=60 mL/min/1.73 m 2 [facility] GFR/1.73 sq M.predicted among non-blacks MDRD (S/P/Bld) [Vol rate/Area] 36 mL/min/{1.73_m2} Low >=60 mL/min/1.73 m 2 [facility] Globulin Calc (S) [Mass/Vol] on 11-01-2024 Globulin (S) [Mass/Vol] Serum globulin measurement by calculation (mass/volume) [facility] Globulin (S) [Mass/Vol] 3.4 g/dL F [facility] Glucose mean value [Mass/vol ume] in Blood Estimated from glycated hemoglobinon 11-01-2024 Average glucose Estimated from glycated hemoglobin (Bld) [Mass/Vol] Glucose mean value [Mass/volume] in Blood Estimated from glycated hemoglobin [facility] Average glucose Estimated from glycated hemoglobin (Bld) [Mass/Vol] 154 mg/dL [facility] Hematocrit Auto (Bld) [Volum e fraction]on 11-01-2024 Hematocrit (Bld) [Volume fraction] 41.5 % 36.0-48.0 [facility] Hemoglobin A1c percentageon 11-01-2024 HbA1c (Bld) [Mass fraction] Hemoglobin A1c percentage High 4.5-6.2 [facility] Comment on above: ADA RECOMMENDED LIMI T 4.0 - 6.0ADA THERAPEUTIC TARGET < 7.0ACTION SUGGESTED> 7.0 HbA1c (Bld) [Mass fraction] 7.0 % High 4.5-6.2 [facility] Comment on above: ADA RECOMMENDED LIMI T 4.0 - 6.0ADA THERAPEUTIC TARGET < 7.0ACTION SUGGESTED> 7.0 Hemoglobin [Mass/volume] in Bloodon 11-01-2024 Hemoglobin (Bld) [Mass/Vol] 13.2 g/dL 12.0-16.0 [facility] Laboratory - Chemistry and C hemistry - challengeon 11-01-2024 Albumin [Mass/Vol] 3.3 g/dL Low 3.4-5.0 [facility] ALP [Catalytic activity/Vol] 89 U/L 46-116 [facility] ALT [Catalytic activity/Vol] 43 U/L 14-59 [facility] AST [Catalytic activity/Vol] 26 U/L 15-37 [facility] Bilirubin [Mass/Vol] 0.3 mg/dL 0.2-1.0 [facility] Calcium [Mass/Vol] 9.0 mg/dL 8.5-10.1 [facility] Chloride [Moles/Vol] 109 mmol/L High 98-107 [facility] Cholesterol [Mass/Vol] 111 mg/dL <=200 [facility] Cholesterol in HDL [Mass/Vol] 59 mg/dL 40-60 [facility] Comment on above: > or =60 mg/dl - LOW CARDIOVASCULAR RISK<40 mg/dl - HIGH CARDIOVASCULAR RISK CO2 [Moles/Vol] 29.4 mmol/L 21.0-32.0 [facility] Creatinine [Mass/Vol] 1.39 mg/dL High 0.55-1.02 [facility] Free T4 [Mass/Vol] 1.14 ng/dL 0.76-1.46 [facility] GFR/1.73 sq M.predicted MDRD (S/P/Bld) [Vol rate/Area] 44 mL/min/{1.73_m2} Low >=60 mL/min/1.73 m 2 [facility] Glucose [Mass/Vol] 88 mg/dL 74-106 [facility] Potassium [Moles/Vol] 5.4 mmol/L High 3.5-5.1 [facility] Protein [Mass/Vol] 6.7 g/dL 6.4-8.2 [facility] Sodium [Moles/Vol] 143 mmol/L 136-145 [facility] Triglyceride [Mass/Vol] 114 mg/dL <=150 F [facility] TSH Qn 0.958 m[IU]/L 0.358-3.740 [facility] Urea nitrogen [Mass/Vol] 44.0 mg/dL High 7.0-18.0 [facility] Urea nitrogen/Creatinine [Mass ratio] 31.7 mg/mg [facility] Laboratory - Hematology and Cell countson 11-01-2024 Band form neutrophils/100 WBC (Bld) 1.0 % 0-5 [facility] Lymphocytes/100 WBC (Bld) 66.0 % High 20.5-60.0 [facility] Monocytes/100 WBC (Bld) 7.0 % 1.7-12.0 F [facility] Leukocytes [#/volume] correc andreina for nucleated erythrocytes in Blood by Automated counon 11-01-2024 WBC corrected for nucl RBC Auto (Bld) [#/Vol] 21.6 10 3/uL High 4.0-11.0 [facility] MCH Auto (RBC) [Entitic mass ]on 11-01-2024 MCH (RBC) [Entitic mass] 30.2 pg 26.7-34.0 [facility] MCHC Auto (RBC) [Mass/Vol]on 11-01-2024 MCHC (RBC) [Mass/Vol] 31.8 g/dL 29.9-35.2 [facility] MCV Auto (RBC) [Entitic vol] on 11-01-2024 MCV (RBC) [Entitic vol] 95.0 fL 81.0-99.0 [facility] Microalbumin [Mass/volume] i n Urineon 11-01-2024 Albumin DL <= 20 mg/L (U) [Mass/Vol] Microalbumin [Mass/volume] in Urine <=30.0 [facility] Albumin DL <= 20 mg/L (U) [Mass/Vol] 1.3 mg/dL <=30.0 [facility] No Panel Informationon 11-01 Absolute Basophils (Manual) 0.43 10 3/uL High 0.00-0.10 [facility] Band Neutrophils # (Manual) 0.2 10 3/uL 0.0-0.3 [facility] Eosinophils # (Manual) 0.21 10 3/uL 0.00-0.70 [facility] Free Triiodothyronine 1.62 pg/mL Low 2.18-3.98 [facility] Lymphocytes # (Manual) 14.25 10 3/uL High 1.20-3.80 [facility] Monocytes # (Manual) 1.51 10 3/uL High 0.30-0.80 [facility] Segmented Neutrophils # (Manual) 4.96 10 3/uL 1.4-6.5 [facility] Urine Random Creatinine 93.71 mg/dL 20.0 0-300.0 0 [facility] Ovalocyte detectionon 2024 Ovalocytes LM Ql (Bld) Ovalocyte detection [facility] Ovalocytes LM Ql (Bld) 1+ Fi [facility] Platelet mean volume Auto (B ld) [Entitic vol]on 11-01-2024 Platelet mean volume (Bld) [Entitic vol] 11.0 fL 9.5-13.5 [facility] Platelets Auto (Bld) [#/Vol] on 11-01-2024 Platelets (Bld) [#/Vol] 239 10 3/uL 150-450 [facility] Poikilocytosis [Presence] in Blood by Light microscopyon 11-01-2024 Poikilocytosis LM Ql (Bld) Poikilocytosis [Presence] in Blood by Light microscopy [facility] Poikilocytosis LM Ql (Bld) 1+ [facility] RBC Auto (Bld) [#/Vol]on RBC (Bld) [#/Vol] 4.37 10 6/uL 4.20-5.40 [facility] Segmented neutrophils/100 WB C Manual cnt (Bld)on 11-01-2024 Segmented neutrophils/100 WBC (Bld) Manual blood segmented neutrophils/100 leukocytes Low 43.0-75.0 [facility] Segmented neutrophils/100 WBC (Bld) 23.0 % Low 43.0-75.0 [facility] Serum or plasma albumin/glob ulin mass ratioon 11-01-2024 Albumin/Globulin [Mass ratio] Serum or plasma albumin/globulin mass ratio [facility] Albumin/Globulin [Mass ratio] 1.0 {ratio} [facility] Serum or plasma anion gap de terminationon 11-01-2024 Anion gap [Moles/Vol] Serum or plasma an ion gap determination [facility] Anion gap [Moles/Vol] 10.0 mmol/L [facility] Serum or plasma total choles terol/high density lipoprotein (HDL) cholesterol mass faustino 11-01-2024 Cholesterol.total/Choles terol in HDL [Mass ratio] Serum or plasma total cholesterol/high density lipoprotein (HDL) cholesterol mass rat [facility] Comment on above: 3.3 - 4.4 LOW RISK4. 4 - 7.1 AVERAGE RISK7.1 - 11.0 MODERATE RISK>11.0 HIGH RISK Cholesterol.total/Choles terol in HDL [Mass ratio] 1.9 {ratio} [facility] Comment on above: 3.3 - 4.4 LOW RISK4. 4 - 7.1 AVERAGE RISK7.1 - 11.0 MODERATE RISK>11.0 HIGH RISK Urine microalbumin/creatinin e mass ratioon 11-01-2024 Albumin/Creatinine DL <= 20 mg/L (U) [Mass ratio] Urine microalbumin/creatini ne mass ratio 0.0-29.9 [facility] Comment on above: NO MICROALBUMINURIA 0-29 MG/GCLINICAL MICROALBUMINURIA 30-300 MG/GMACROALBUMINURIA >300 MG/G Albumin/Creatinine DL <= 20 mg/L (U) [Mass ratio] 13.8 mg/g 0.0-29.9 [facility] Comment on above: NO MICROALBUMINURIA 0-29 MG/GCLINICAL MICROALBUMINURIA 30-300 MG/GMACROALBUMINURIA >300 MG/G Reminderson 09-15-2024 Reminders Reminders From: Lori Bledsoe To: EU - Administrative; Sent: 02/24/2024 10:44:10 EDT Show up: 06/25/2024 09:43:00 EST Subject: 6 MO F/U Due Date/Time: 08/26/2024 09:43:00 EST Reminder/Recall PT SEEN ON 02/24/2024 BY J[facility]NY IN [facility]. PT WILL NEED A 6 MO F/U. APPT DUE BY 08/26/2024 NO ANSWER Pt is scheduled for 02/14/25. Normal [facility] Laboratory - Chemistry and C hemistry - challengeon 09-03-2024 Bilirubin Ql (U) Negative NEGATIVE [facility] Glucose (U) [Mass/Vol] Negative NEGATIVE [facility] Ketones Ql (U) TRACE mg/dL Abnormal NEGATIVE [facility] pH (U) 5.5 [pH] 5.0-9.0 [facility] Specific gravity (U) [Rel density] 1.025 1.005-1.025 [facility] Urobilinogen Qn (U) 0.2 {Jose'U}/dL 0.2-1.0 [facility] Laboratory - Specimen inform ationon 09-03-2024 Appearance (U) CLEAR CLEAR [facility] Color (U) LT YELLOW YELLOW [facility] Laboratory - Urinalysison Leukocyte esterase Test strip Ql (U) Negative NEGATIVE [facility] Nitrite Ql (U) Negative NEGATIVE [facility] Protein Ql (U) TRACE mg/dL NEG/TRACE [facility] No Panel Informationon 09-03 Urine Occult Blood Negative NEGATIVE [facility] Urine Cultureon 09-03-2024 Bacteria identified Cx Nom (U) 75,000 colonies/ml mixed bacterial skin contaminants 2 Days PERFORMED BY: [place] [address] PATHOLOGIST BEATER ROOM SUPERVISOR IDA ARMIJO M.D. Normal [facility] Comment on above: Performed By: #### C UU #### [address] Ambulatory Visit Summaryon 0 08-16-2024 Ambulatory Visit Summary Ambulatory Visi t Summary KATHY WASHBURN [place] :1940 Visit Date:08/16/2024 Ambulatory Visit Instructions Your Diagnosis Recurrent UTI Urgency incontinence Your Care Team Attending Physician - JAX BECKMAN, SUSAN Miller Primary Care Physician - Ayanna Vicente DO [...] SUSAN RANDOLPH PA-C Where: [facility] [address] [place] [address]- You Need to Schedule the Following Appointments Follow Up with SUSAN RANDOLPH PA-C, ALMA ROSA When: In 6 months Where: [address] [place] [address] Medications What How Much When Instructions New estradiol topical (Estrace 0.1 mg/ g Cream) See instructions Refills: 6 apply a pea-sized amount vaginally and around the urethra 3x per week for UTI prevention Pickup at [facility] [address] Unchanged acetaminophen-oxycodo ne (acetaminophen-oxycod one 325 [...] Discount D (more content not included)... Normal [facility] Urology Office/Clinic Noteon 08-16-2024 Urology Office/Clinic Note [...] 10-25k (S-FQ) 03/17/24 (7d) 04/05/24 (10d) Cx 10/26/24 >100k Klebsiella (lopez-S) 06/18/24 (7d) 08/11/24 (7d) [...] will consider cystoscopy w possible UD. Ordered: [id number] Measure Post Void residual urine and/or bladder capacity by US- non-imaging Complex E&M Add on G2211 E&M of Est. Patient Moderate 30-39 Min 14561 Urnls Dip Stick Auto w/o Microscopy POC 43440 2. Urgency incontinence (N39.41: Urge incontinence) S/p Botox 100u 08/30/21. [place] sxs only improved for a few weeks [...] E&M of Est. Patient Moderate 30-39 Min 14608 Orders: estradiol topical, See Instructions, 42.5 gm, Refill(s) 6, apply a pea-sized amount vaginally and around the urethra 3x per week for UTI prevention, [facility], 178, cm, 08/16/24 9:10:00 EST, Height/Length Dosing, 103, kg, 08/16/24 9:10:00 EST, Weight Do... Follow-up With When Contact Information SUSAN RANDOLPH PA-C, URL In 6 months [address] [place] [address] Additional Instructions: Patient Education Antibiotic [...] ne 325 (more content not included)... Normal [facility] Comment on above: Result Comment: Elec tronically Signed By: SUSAN RANDOLPH PA-C\.br\Date and Time Signed: 08/16/24 10:05 EST Appearance of UrineOrdered B y: Ayanna Vicente on 08-10-2024 Appearance (U) Urine appearance Abnormal Clear [facility] Bacteria [Presence] in Urine by AutomatedOrdered By: Ayanna Vicente on 08-10-2024 Bacteria Auto Ql (U) Bacteria [Presence] in Urine by Automated None Seen [facility] Bilirubin Test strip Ql (U)O rdered By: Ayanna Vicente on 08-10-2024 Bilirubin Ql (U) Bilirubin.total [Presence] in Urine by Test strip Negative [facility] Color Auto (U)Ordered By: Vasile Vicente on 08-10-2024 Color (U) Color of Urine by Auto Abnormal Yellow [facility] Dipstick and Microscopicon 0 08-10-2024 Appearance (U) Cloudy Critically abnormal Clear [facility] Comment on above: Order Comment: Name Collection Type:: Clean-Voided Midstream Performed By: #### A DDONUAPLUS, CUU #### [address] Bacteria,Urine None Seen Normal None Seen [facility] Comment on above: Order Comment: Name Collection Type:: Clean-Voided Midstream Performed By: #### A DDONUAPLUS, CUU #### [place] [address] [place] Bilirubin,Urine Negative Normal Negative [facility] Comment on above: Order Comment: Name Collection Type:: Clean-Voided Midstream Performed By: #### A DDONUAPLUS, CUU #### [address] Color (U) Dark-Yellow Critically abnormal Yellow [facility] Comment on above: Order Comment: Name Collection Type:: Clean-Voided Midstream Performed By: #### A DDONUAPLUS, CUU #### [address] Glucose Ql (U) Normal Normal Normal [facility] Comment on above: Order Comment: Name Collection Type:: Clean-Voided Midstream Performed By: #### A DDONUAPLUS, CUU #### [place] [address] [place] Hyaline Casts,Urine 0 [LPF] Normal 0-8 [facility] Comment on above: Order Comment: Name Collection Type:: Clean-Voided Midstream Performed By: #### A DDONUAPLUS, CUU #### [place] [address] [place] Ketones Ql (U) Negative Normal Negative [facility] Comment on above: Order Comment: Name Collection Type:: Clean-Voided Midstream Performed By: #### A DDONUAPLUS, CUU #### [address] Leukocyte esterase Test strip Ql (U) 4+ High Negative [facility] Comment on above: Order Comment: Name Collection Type:: Clean-Voided Midstream Performed By: #### A DDONUAPLUS, CUU #### [place] [address] [place] Mucus,Urine Rare Normal [facility] Comment on above: Order Comment: Name Collection Type:: Clean-Voided Midstream Result Comment: PERF ORMED BY: [place] [address] PATHOLOGIST BEATER ROOM SUPERVISOR IDA ARMIJO M.D. Performed By: #### A DDONUAPLUS, CUU #### [place] [address] [place] Nitrite,Urine Positive High Negative [facility] Comment on above: Order Comment: Name Collection Type:: Clean-Voided Midstream Performed By: #### A DDONUAPLUS, CUU #### [place] [address] [place] Occult Blood,Urine Negative Normal Negative [facility] Comment on above: Order Comment: Name Collection Type:: Clean-Voided Midstream Result Comment: PERF ORMED BY: [place] [address] PATHOLOGIST BEATER ROOM SUPERVISOR IDA ARMJIO M.D. Performed By: #### A DDONUAPLUS, CUU #### [address] pH (U) 6.0 [pH] Normal 5.0-9.0 [facility] Comment on above: Order Comment: Name Collection Type:: Clean-Voided Midstream Performed By: #### A DDONUAPLUS, CUU #### [place] [address] [place] Protein (U) [Mass/Vol] 30 mg/dL High Negative Th e [facility] Comment on above: Order Comment: Name Collection Type:: Clean-Voided Midstream Performed By: #### A DDONUAPLUS, CUU #### [place] [address] [place] RBC,Urine 1 [HPF] Normal 0-4 [facility] Comment on above: Order Comment: Name Collection Type:: Clean-Voided Midstream Performed By: #### A DDONUAPLUS, CUU #### [address] Specificy [place],Urine 1.022 Normal 1.001-1.030 [facility] Comment on above: Order Comment: Name Collection Type:: Clean-Voided Midstream Performed By: #### A DDONUAPLUS, CUU #### [address] Squamous Epithelial Cell,Urine 1 [HPF] Normal 0-2 [facility] Comment on above: Order Comment: Name Collection Type:: Clean-Voided Midstream Performed By: #### A DDONUAPLUS, CUU #### [address] Urobilinogen,Urine Normal Normal Normal [facility] Comment on above: Order Comment: Name Collection Type:: Clean-Voided Midstream Performed By: #### A DDONUAPLUS, CUU #### [address] WBC CLUMP, Urine Many High None Seen [facility] Comment on above: Order Comment: Name Collection Type:: Clean-Voided Midstream Performed By: #### A DDONUAPLUS, CUU #### [address] WBC,Urine Innumerable High 0-4 [facility] Comment on above: Order Comment: Name Collection Type:: Clean-Voided Midstream Performed By: #### A DDONUAPLUS, CUU #### [address] Epithelial cells.squamous [# /area] in Urine sediment by Automated countOrdered By: Ayanna Vicente on 08-10-2024 Epithelial cells.squamous Auto (Urine sed) [#/Area] Epithelial cells.squamous [#/area] in Urine sediment by Automated count 0-2 [facility] Erythrocytes [#/area] in Uri ne sediment by Automated countOrdered By: Ayanna Vicente on 08-10-2024 RBC Auto (Urine sed) [#/Area] Erythrocytes [#/area] in Urine sediment by Automated count 0-4 [facility] Glucose [Mass/volume] in Uri ne by Test stripOrdered By: Ayanna Vicente on 08-10-2024 Glucose Test strip (U) [Mass/Vol] Glucose [Mass/volume] in Urine by Test strip Normal [facility] Hemoglobin Test strip Ql (U) Ordered By: Ayanna Vicente on 08-10-2024 Hemoglobin Ql (U) Hemoglobin [Presence ] in Urine by Test strip Negative [facility] Hyaline casts [#/area] in Ur ine sediment by Automated countOrdered By: Ayanna Vicente on 08-10-2024 Hyaline casts Auto (Urine sed) [#/Area] Hyaline casts [#/area] in Urine sediment by Automated count 0-8 [facility] Ketones Test strip Ql (U)Ord ered By: Ayanna Vicente on 08-10-2024 Ketones Ql (U) Ketones [Presence] i n Urine by Test strip Negative [facility] Leukocyte clumps [Presence] in Urine by AutomatedOrdered By: Ayanna Vicente on 08-10-2024 Leukocyte clumps Auto Ql (U) Leukocyte clumps [Presence] in Urine by Automated High None Seen [facility] Leukocyte esterase [Presence ] in Urine by Test stripOrdered By: Ayanna Vicente on 08-10-2024 Leukocyte esterase Test strip Ql (U) Leukocyte esterase [Presence] in Urine by Test strip High Negative [facility] Leukocytes [#/area] in Urine sediment by Automated countOrdered By: Ayanna Vicente on 08-10-2024 WBC Auto (Urine sed) [#/Area] Leukocytes [#/area] in Urine sediment by Automated count High 0-4 [facility] Mucus [Presence] in Urine by AutomatedOrdered By: Ayanna Vicnete on 08-10-2024 Mucus Auto Ql (U) Mucus [Presence] in Urine by Automated [facility] Nitrite Test strip Ql (U)Ord ered By: Ayanna Vicente on 08-10-2024 Nitrite Ql (U) Nitrite [Presence] i n Urine by Test strip High Negative [facility] Protein Test strip (U) [Mass /Vol]Ordered By: Ayanna Vicente on 08-10-2024 Protein (U) [Mass/Vol] Protein [Mass/vol ume] in Urine by Test strip High Negative [facility] Specific gravity Test strip (U) [Rel density]Ordered By: Ayanna Vicente on 08-10-2024 Specific gravity (U) [Rel density] Specific gravity of Urine by Test strip 1.001-1.030 [facility] Urine Cultureon 08-10-2024 Bacteria identified Cx Nom (U) ORGANISM: Escherichia coli (O:ESCCOL) [place] Count >100,000 Aerobic CORNELIA Charge (NMIC56) ---- [...] RESISTANT TO ALL B-LACTAM DRUGS. PERFORMED BY: [address] [place] [address] PATHOLOGIST BEATER ROOM SUPERVISOR IDA ARMIJO M.D. Normal [facility] Comment on above: Performed By: #### A DDONUAPLUS, CUU #### [facility] [address] Urine cultureOrdered By: Aftab Vicente on 08-10-2024 Bacteria identified Cx Nom (U) Escherichia coli Abnormal [facility] Urobilinogen Test strip (U) [Mass/Vol]Ordered By: Ayanna Vicente on 08-10-2024 Urobilinogen (U) [Mass/Vol] Urobilinogen [Mass/volume] in Urine by Test strip Normal [facility] pH Test strip (U)Ordered By: Ayanna Vicente on 08-10-2024 pH (U) pH of Urine by Test strip 5.0-9.0 [facility] ALL THYROID STIM HORMONEon 1 08-23-2023 TSH Qn 2.632 m[IU]/L [facility] Estimated glomerular filtrat ion rate (GFR) non- Americanon 06-22-2024 GFR/1.73 sq M.predicted among non-blacks MDRD (S/P/Bld) [Vol rate/Area] Estimated glomerular filtration rate (GFR) non- Low >=60 mL/min/1.73 m 2 [facility] Laboratory - Chemistry and C hemistry - challengeon 06-22-2024 Calcium [Mass/Vol] 9.2 mg/dL 8.5-10.1 [facility] Chloride [Moles/Vol] 105 mmol/L 98-107 [facility] CO2 [Moles/Vol] 30.0 mmol/L 21.0-32.0 [facility] Cobalamin (Vitamin B12) [Mass/Vol] 721 pg/mL [id number] [facility] Comment on above: Performed at: [facility] stewart [address] [id number] Director: Narinder Elam PhD, Phone: [phone] Creatinine [Mass/Vol] 1.36 mg/dL High 0.55-1.02 [facility] GFR/1.73 sq M.predicted MDRD (S/P/Bld) [Vol rate/Area] 45 mL/min/{1.73_m2} Low >=60 mL/min/1.73 m 2 [facility] Glucose [Mass/Vol] 125 mg/dL High 74-106 [facility] Potassium [Moles/Vol] 4.8 mmol/L 3.5-5.1 [facility] Sodium [Moles/Vol] 141 mmol/L 136-145 [facility] TSH Qn 2.632 m[IU]/L 0.358-3.740 [facility] Urea nitrogen [Mass/Vol] 28.0 mg/dL High 7.0-18.0 [facility] Urea nitrogen/Creatinine [Mass ratio] 20.6 mg/mg [facility] Serum or plasma anion gap de terminationon 06-22-2024 Anion gap [Moles/Vol] Serum or plasma an ion gap determination [facility] Basophils/100 WBC Manual cnt (Bld)on 06-15-2024 Basophils/100 WBC (Bld) Basophils/100 leukocytes in Blood by Manual count 0.2-2.0 [facility] Eosinophils/100 WBC Manual c nt (Bld)on 06-15-2024 Eosinophils/100 WBC (Bld) Eosinophils/100 leukocytes in Blood by Manual count 0.9-7.0 [facility] Erythrocyte distribution wid th Auto (RBC) [Ratio]on 06-15-2024 Erythrocyte distribution width (RBC) [Ratio] Erythrocyte distribution width [Ratio] by Automated count 11.0-15.0 [facility] Estimated glomerular filtrat ion rate (GFR) non- Americanon 06-15-2024 GFR/1.73 sq M.predicted among non-blacks MDRD (S/P/Bld) [Vol rate/Area] Estimated glomerular filtration rate (GFR) non- Low >=60 mL/min/1.73 m 2 [facility] Globulin Calc (S) [Mass/Vol] on 06-15-2024 Globulin (S) [Mass/Vol] Serum globulin measurement by calculation (mass/volume) [facility] Hematocrit Auto (Bld) [Volum e fraction]on 06-15-2024 Hematocrit (Bld) [Volume fraction] Hematocrit [Volume Fraction] of Blood by Automated count 36.0-48.0 [facility] Hemoglobin [Mass/volume] in Bloodon 06-15-2024 Hemoglobin (Bld) [Mass/Vol] Hemoglobin [Mass/volume] in Blood 12.0-16.0 [facility] Curt 06-15-2024 L - -------- Specimen: [id number] Received: 06/16/24 Status: JEFFERY Lemon Num: [id number] Spec Type: Impression Subm Dr: Tri Ag DO Tissues: PATHPER Procedures: PATHREVIEW -------- Age/ Patient Sex Location Account Attending Physician -------- Kathy Washburn 83/F [place] [id number] Tri Ag DO -------- SPEC NUM: [id number] RECD: 06/16/24 STATUS: JEFFERY LEMON NUM: [id number] JESSICA: 06/15/24- SUBM DR: Tri Ag DO ENTERED: 06/16/24-[address]: Wilda,Lab SPEC TYPE: Impression DEPT: [facility] Lance ENTERED BY: [id number] RECV BY: [id number] ORDERED: PATHREVIEW ORDERED: PATHREVIEW Pathologist Review Peripheral blood smear evaluation: - Severe lymphocytosis with atypical lymphocytes and smudges consistent with CLL, flow cytometry if clinically indicated. - Red blood cell and Platelet: Unremarkable. CPT: 79024 Jose Angel Kc MD 06/16/24 -------- -------- Specimen: [id number] Received: 06/16/24 Status: JEFFERY Argenis Num: [id number] Spec Type: Impression Subm Dr: Tri Ag DO Tissues: PATHPER Procedures: PATHREVIEW -------- Patient: Kathy Washburn [id number] (Continued) -------- Signed (signature on file) Jose Angel Kc MD 06/16/24 1635 Normal [facility] Laboratory - Chemistry and C hemistry - challengeon 06-15-2024 Albumin [Mass/Vol] 3.5 g/dL 3.4-5.0 [facility] ALP [Catalytic activity/Vol] 103 U/L 46-116 [facility] ALT [Catalytic activity/Vol] 34 U/L 14-59 [facility] AST [Catalytic activity/Vol] 25 U/L 15-37 [facility] Bilirubin [Mass/Vol] 0.3 mg/dL 0.2-1.0 [facility] Calcium [Mass/Vol] 9.1 mg/dL 8.5-10.1 [facility] Chloride [Moles/Vol] 108 mmol/L High 98-107 [facility] CO2 [Moles/Vol] 28.4 mmol/L 21.0-32.0 [facility] Creatinine [Mass/Vol] 1.42 mg/dL High 0.55-1.02 [facility] GFR/1.73 sq M.predicted MDRD (S/P/Bld) [Vol rate/Area] 43 mL/min/{1.73_m2} Low >=60 mL/min/1.73 m 2 [facility] Glucose [Mass/Vol] 140 mg/dL High 74-106 [facility] Potassium [Moles/Vol] 4.3 mmol/L 3.5-5.1 [facility] Protein [Mass/Vol] 6.9 g/dL 6.4-8.2 [facility] Sodium [Moles/Vol] 143 mmol/L 136-145 [facility] Urea nitrogen [Mass/Vol] 31.0 mg/dL High 7.0-18.0 [facility] Urea nitrogen/Creatinine [Mass ratio] 21.8 mg/mg [facility] Laboratory - Hematology and Cell countson 06-15-2024 Lymphocytes/100 WBC (Bld) 54.0 % 20.5-60.0 [facility] Monocytes/100 WBC (Bld) 0.0 % Low 1.7-12.0 F [facility] Leukocytes [#/volume] correc andreina for nucleated erythrocytes in Blood by Automated counon 06-15-2024 WBC corrected for nucl RBC Auto (Bld) [#/Vol] Leukocytes [#/volume] corrected for nucleated erythrocytes in Blood by Automated coun High 4.0-11.0 [facility] MCH Auto (RBC) [Entitic mass ]on 06-15-2024 MCH (RBC) [Entitic mass] MCH [Entitic ma ss] by Automated count 26.7-34.0 [facility] MCHC Auto (RBC) [Mass/Vol]on 06-15-2024 MCHC (RBC) [Mass/Vol] MCHC [Mass/volume] by Automated count 29.9-35.2 [facility] MCV Auto (RBC) [Entitic vol] on 06-15-2024 MCV (RBC) [Entitic vol] MCV [Entitic vol ume] by Automated count 81.0-99.0 [facility] No Panel Informationon 06-15 Absolute Basophils (Manual) 0.22 10 3/uL High 0.00-0.10 [facility] Add Manual Differential See comment [facility] Comment on above: SEE SCANNED REPORT Eosinophils # (Manual) 0.44 10 3/uL 0.00-0.70 [facility] Lymphocytes # (Manual) 11.88 10 3/uL High 1.20-3.80 [facility] Monocytes # (Manual) 0.00 10 3/uL Low 0.30-0.80 [facility] Lymphocytes 1.76 [facility] Reactive Lymphocytes 8.0 % [facility] Segmented Neutrophils # (Manual) 7.70 10 3/uL High 1.4-6.5 [facility] Platelet mean volume Auto (B ld) [Entitic vol]on 06-15-2024 Platelet mean volume (Bld) [Entitic vol] Platelet mean volume [Entitic volume] in Blood by Automated count 9.5-13.5 [facility] Platelets Auto (Bld) [#/Vol] on 06-15-2024 Platelets (Bld) [#/Vol] Platelets [#/vol ume] in Blood by Automated count 150-450 [facility] RBC Auto (Bld) [#/Vol]on RBC (Bld) [#/Vol] Erythrocytes [#/volume] in Blood by Automated count 4.20-5.40 [facility] Segmented neutrophils/100 WB C Manual cnt (Bld)on 06-15-2024 Segmented neutrophils/100 WBC (Bld) Manual blood segmented neutrophils/100 leukocytes Low 43.0-75.0 [facility] Serum or plasma albumin/glob ulin mass ratioon 06-15-2024 Albumin/Globulin [Mass ratio] Serum or plasma albumin/globulin mass ratio [facility] Serum or plasma anion gap de terminationon 06-15-2024 Anion gap [Moles/Vol] Serum or plasma an ion gap determination [facility] Smudge cell detectionon Smudge cells LM Ql (Bld) Smudge cell detection [facility] Basophils Auto (Bld) [#/Vol] on 05-26-2024 Basophils (Bld) [#/Vol] Automated basoph il count <0.11 [facility] Basophils/100 WBC Auto (Bld) on 05-26-2024 Basophils/100 WBC (Bld) Automated basophil % [facility] Blood manual differential co mment interpretation narrativeon 05-26-2024 Manual differential comment Himanshu (Bld) [Interp] Blood manual differential comment interpretation narrative [facility] CBC W Auto Differential pane l (Bld)on 05-26-2024 Basophils (Bld) [#/Vol] 0.00 10*3/uL Normal <0.11 [facility] Comment on above: Order Comment: Speci men Type: BLOOD SPECIMEN Ordering Facility: [facility] Address: [address] [place] [address] Performed By: #### 5 7021-8 #### [facility] CLIA [id number] [address] [place] [address] LAB CLIA [id number] [address] [place] [address] [place] Basophils/100 WBC (Bld) 0.0 % [facility] Comment on above: Order Comment: Speci men Type: BLOOD SPECIMEN Ordering Facility: [facility] Address: [address] [place] [address] Performed By: #### 5 7021-8 #### [facility] CLIA [id number] [address] [place] [address] LAB CLIA [id number] [address] [place] [address] [place] Differential cell count method Nom (Bld) Manual Normal [facility] Comment on above: Order Comment: Speci men Type: BLOOD SPECIMEN Ordering Facility: [facility] Address: [address] [place] [address] Performed By: #### 5 7021-8 #### [facility] CLIA [id number] [address] [place] [address] LAB CLIA [id number] [address] [place] [address] [place] Eosinophils (Bld) [#/Vol] 0.19 10*3/uL Normal <0.46 [facility] Comment on above: Order Comment: Speci men Type: BLOOD SPECIMEN Ordering Facility: [facility] Address: [address] [place] [address] Performed By: #### 5 7021-8 #### [facility] CLIA [id number] [address] [place] [address] LAB CLIA [id number] [address] [place] [address] [place] Eosinophils/100 WBC (Bld) 1.0 % Normal [facility] Comment on above: Order Comment: Speci men Type: BLOOD SPECIMEN Ordering Facility: [facility] Address: [address] [place] [address] Performed By: #### 5 7021-8 #### [facility] CLIA [id number] [address] [place] [address] LAB CLIA [id number] [address] [place] [address] [place] Erythrocyte distribution width (RBC) [Ratio] 14.2 % Normal 11.5-15.0 [facility] Comment on above: Order Comment: Speci men Type: BLOOD SPECIMEN Ordering Facility: [facility] Address: [address] [place] [address] Performed By: #### 5 7021-8 #### [facility] CLIA [id number] [address] [place] [address] LAB CLIA [id number] [address] [place] [address] [place] Hematocrit (Bld) [Volume fraction] 38.4 % Normal 36.0-46.0 [facility] Comment on above: Order Comment: Speci men Type: BLOOD SPECIMEN Ordering Facility: [facility] Address: [address] [place] [address] Performed By: #### 5 7021-8 #### [facility] CLIA [id number] [address] [place] [address] LAB CLIA [id number] [address] [place] [address] [place] Hemoglobin (Bld) [Mass/Vol] 12.7 g/dL Normal 11.5-15.5 [facility] Comment on above: Order Comment: Speci men Type: BLOOD SPECIMEN Ordering Facility: [facility] Address: [address] [place] [address] Performed By: #### 5 7021-8 #### [facility] CLIA [id number] [address] [place] [address] LAB CLIA [id number] [address] [place] [address] [place] Lymphocytes (Bld) [#/Vol] 14.61 10*3/uL High 1.00-4.00 [facility] Comment on above: Order Comment: Speci men Type: BLOOD SPECIMEN Ordering Facility: [facility] Address: [address] [place] [address] Performed By: #### 5 7021-8 #### [facility] CLIA [id number] [address] [place] [address] LAB CLIA [id number] [address] [place] [address] [place] Lymphocytes/100 WBC (Bld) 76.0 % Normal [facility] Comment on above: Order Comment: Speci men Type: BLOOD SPECIMEN Ordering Facility: [facility] Address: [address] [place] [address] Performed By: #### 5 7021-8 #### [facility] CLIA [id number] [address] [place] [address] LAB CLIA [id number] [address] [place] [address] [place] MCH (RBC) [Entitic mass] 30.0 pg Normal 26.0-34.0 [facility] Comment on above: Order Comment: Speci men Type: BLOOD SPECIMEN Ordering Facility: [facility] Address: [address] [place] [address] Performed By: #### 5 7021-8 #### [facility] CLIA [id number] [address] [place] [address] LAB CLIA [id number] [address] [place] [address] [place] MCHC (RBC) [Mass/Vol] 33.1 g/dL Normal 30.5-36.0 [facility] Comment on above: Order Comment: Speci men Type: BLOOD SPECIMEN Ordering Facility: [facility] Address: [address] [place] [address] Performed By: #### 5 7021-8 #### [facility] CLIA [id number] [address] [place] [address] LAB CLIA [id number] [address] [place] [address] [place] MCV (RBC) [Entitic vol] 90.8 fL Normal 80.0-100.0 C [facility] Comment on above: Order Comment: Speci men Type: BLOOD SPECIMEN Ordering Facility: [facility] Address: [address] [place] [address] Performed By: #### 5 7021-8 #### [facility] CLIA [id number] [address] [place] [address] LAB CLIA [id number] [address] [place] [address] [place] Monocytes (Bld) [#/Vol] 0.19 10*3/uL Normal <0.87 [facility] Comment on above: Order Comment: Speci men Type: BLOOD SPECIMEN Ordering Facility: [facility] Address: [address] [place] [address] Performed By: #### 5 7021-8 #### [facility] CLIA [id number] [address] [place] [address] LAB CLIA [id number] [address] [place] [address] [place] Monocytes/100 WBC (Bld) 1.0 % Normal C [facility] Comment on above: Order Comment: Speci men Type: BLOOD SPECIMEN Ordering Facility: [facility] Address: [address] [place] [address] Performed By: #### 5 7021-8 #### [facility] CLIA [id number] [address] [place], [place] [id number] [facility] CLIA [id number] [address] [place] [address] [place] Neutrophils (Bld) [#/Vol] 4.23 10*3/uL Normal 1.45-7.50 [facility] Comment on above: Order Comment: Speci men Type: BLOOD SPECIMEN Ordering Facility: [facility] Address: [address] [place] [address] Performed By: #### 5 7021-8 #### [facility] CLIA [id number] [address] [place] [address] LAB CLIA [id number] [address] [place] [address] [place] Neutrophils/100 WBC (Bld) 22.0 % Normal [facility] Comment on above: Order Comment: Speci men Type: BLOOD SPECIMEN Ordering Facility: [facility] Address: [address] [place] [address] Performed By: #### 5 7021-8 #### [facility] CLIA [id number] [address] [place] [address] LAB CLIA [id number] [address] [place] [address] [place] Nucleated RBC (Bld) [#/Vol] 10*3/uL Normal <0.01 [facility] Comment on above: Order Comment: Speci men Type: BLOOD SPECIMEN Ordering Facility: [facility] Address: [address] [place] [address] Performed By: #### 5 7021-8 #### [facility] CLIA [id number] [address] [place] [address] LAB CLIA [id number] [address] [place] [address] [place] Nucleated RBC/100 WBC (Bld) [Ratio] 0.0 /100 WBC Normal [facility] Comment on above: Order Comment: Speci men Type: BLOOD SPECIMEN Ordering Facility: [facility] Address: [address] [place] [address] Performed By: #### 5 7021-8 #### [facility] CLIA [id number] [address] [place] [address] LAB CLIA [id number] [address] [place] [address] [place] Ovalocytes LM Ql (Bld) Few Normal Cl [facility] Comment on above: Order Comment: Speci men Type: BLOOD SPECIMEN Ordering Facility: [facility] Address: [address] [place] [address] Performed By: #### 5 7021-8 #### [facility] CLIA [id number] [address] [place] [address] LAB CLIA [id number] [address] [place] [address] [place] Platelet mean volume (Bld) [Entitic vol] 10.4 fL Normal 9.0-12.7 [facility] Comment on above: Order Comment: Speci men Type: BLOOD SPECIMEN Ordering Facility: [facility] Address: [address] [place] [address] Performed By: #### 5 7021-8 #### [facility] CLIA [id number] [address] [place] [address] LAB CLIA [id number] [address] [place] [address] [place] Platelets (Bld) [#/Vol] 244 10*3/uL Normal 150-400 [facility] Comment on above: Order Comment: Speci men Type: BLOOD SPECIMEN Ordering Facility: [facility] Address: [address] [place] [address] Performed By: #### 5 7021-8 #### [facility] CLIA [id number] [address] [place] [address] LAB CLIA [id number] [address] [place] [address] [place] Platelets Estimate (Bld) [#/Vol] Adequate Normal [facility] Comment on above: Order Comment: Speci men Type: BLOOD SPECIMEN Ordering Facility: [facility] Address: [address] [place] [address] Performed By: #### 5 7021-8 #### [facility] CLIA [id number] [address] [place] [address] LAB CLIA [id number] [address] [place] [address] [place] Polychromasia LM Ql (Bld) Slight Normal [facility] Comment on above: Order Comment: Speci men Type: BLOOD SPECIMEN Ordering Facility: [facility] Address: [address] [place] [address] Performed By: #### 5 7021-8 #### [facility] CLIA [id number] [address] [place] [address] LAB CLIA [id number] [address] [place] [address] [place] RBC (Bld) [#/Vol] 4.23 10*6/uL Normal 3.90-5.20 [facility] Comment on above: Order Comment: Speci men Type: BLOOD SPECIMEN Ordering Facility: [facility] Address: [address] [place] [address] Performed By: #### 5 7021-8 #### [facility] CLIA [id number] [address] [place] [address] LAB CLIA [id number] [address] [place] [address] [place] RED CELL MORPH Reviewed: see result s of individual morphologies Normal [facility] Comment on above: Order Comment: Speci men Type: BLOOD SPECIMEN Ordering Facility: [facility] Address: [address] [place] [address] Performed By: #### 5 7021-8 #### [facility] CLIA [id number] [address] LAB CLIA [id number] [address] [place] [address] [place] WBC (Bld) [#/Vol] 19.22 10*3/uL High 3.70-11.00 [facility] Comment on above: Order Comment: Speci men Type: BLOOD SPECIMEN Ordering Facility: [facility] Address: [address] [place] [address] Result Comment: No c lot detected.Results checked and verified. Performed By: #### 5 7021-8 #### [facility] CLIA [id number] [address] [place] [address] LAB CLIA [id number] [address] [place] [address] [place] CNOVSPon 05-26-2024 CNOVSP Visit (SP) Office ([facility]) MARKUSKATHY Briggs ([id number]) 1940 F Date Time Provider Department 05/26/24 2:00 PM CHAD FREITAS During your visit today, we recorded the following information about you: Temperature Pulse Respiration Blood pressure 97 degrees 70/minute 16/minute 92/51 Weight Height 105.3 kg 1.727 m Chad Freitas MD 05/26/2024 2:41 PM Signed PATIENT NAME: Kathy Washburn CLINIC NO.: [id number] ATTENDING PHYSICIAN: Chad Freitas MD DATE OF [...] sweats - Did mammogram last week at [facility]. - Scheduled to see Fitting Room Attendant PAST MEDICAL HISTORY Diagnosis Date Depression Diabetes [...] Status 05/26 (more content not included)... Normal [facility] metabolic 2000 panelOrdered By: Malka Galvez on 05-26-2024 Albumin [Mass/Vol] 4.1 g/dL 3.9 - 4.9 g/dL [facility] ALP [Catalytic activity/Vol] 107 U/L 34 - 123 U/L [facility] ALT [Catalytic activity/Vol] 21 U/L 7 - 38 U/L [facility] Anion gap [Moles/Vol] 11 mmol/L 8 - 15 mmol/L [facility] AST [Catalytic activity/Vol] 23 U/L 13 - 35 U/L [facility] Bilirubin [Mass/Vol] 0.2 mg/dL 0.2 - 1 .3 mg/dL [facility] Calcium [Mass/Vol] 9.3 mg/dL 8.5 - 10. 2 mg/dL [facility] Chloride [Moles/Vol] 105 mmol/L 98 - 10 7 mmol/L [facility] CO2 [Moles/Vol] 26 mmol/L 22 - 30 mmol/L [facility] Creatinine [Mass/Vol] 1.20 mg/dL High 0.58 - 0.96 mg/dL [facility] GFR/1.73 sq M.predicted among non-blacks MDRD (S/P/Bld) [Vol rate/Area] 46 mL/min/{1.73_m2} Low - PINF [facility] Comment on above: Estimated Glomerular Filtration [...] 231 mg/dL High 74 - 99 mg/dL [facility] Comment on above: The [place] [employer] Association (ADA) provides guidance for [...] Standards of Medical Care in Diabetes 2016, [place] [employer]. Diabetes Care. 2016.39(Suppl 1). Interpretation and review of laboratory results Abnormal [facility] Potassium [Moles/Vol] 5.3 mmol/L High 3.7 - 5.1 mmol/L [facility] Protein [Mass/Vol] 6.9 g/dL 6.3 - 8.0 g/dL [facility] Sodium [Moles/Vol] 142 mmol/L 136 - 144 mmol/L [facility] Urea nitrogen [Mass/Vol] 36 mg/dL High 7 - 21 mg/dL [facility] Comprehensive metabolic 2000 panelon 05-26-2024 Albumin [Mass/Vol] 4.1 g/dL Normal 3.9-4.9 [facility] Comment on above: Order Comment: Chavai johnna Type: BLOOD SPECIMEN Ordering Facility: [facility] Address: [address] [place] [address] Performed By: #### 2 532-0, 96707-8 #### [facility] CLIA [id number] [address] [place] [address] ALP [Catalytic activity/Vol] 107 U/L Normal 34-123 [facility] Comment on above: Order Comment: Speci men Type: BLOOD SPECIMEN Ordering Facility: [facility] Address: [address] [place] [address] Performed By: #### 2 532-0, 27651-1 #### [facility] CLIA [id number] [address] [place] [address] ALT [Catalytic activity/Vol] 21 U/L Normal 7-38 [facility] Comment on above: Order Comment: Speci men Type: BLOOD SPECIMEN Ordering Facility: [facility] Address: [address] [facility] [place] [id number] Performed By: #### 2 532-0, #### [facility] CLIA [id number] [address] [place] [address] Anion gap [Moles/Vol] 11 mmol/L Normal 8-15 [facility] Comment on above: Order Comment: Speci men Type: BLOOD SPECIMEN Ordering Facility: [facility] Address: [address] [place] [id number] Performed By: #### 2 532-0, #### [facility] CLIA [id number] [address] [place] [address] AST [Catalytic activity/Vol] 23 U/L Normal 13-35 [facility] Comment on above: Order Comment: Speci men Type: BLOOD SPECIMEN Ordering Facility: [facility] Address: [address] [facility] [place] [address] Performed By: #### 2 532-0, #### [facility] CLIA [id number] [address] [place] [address] Bilirubin [Mass/Vol] 0.2 mg/dL Normal 0.2-1.3 [facility] Comment on above: Order Comment: Speci men Type: BLOOD SPECIMEN Ordering Facility: [facility] Address: [address] [place] [address] Performed By: #### 2 532-0, #### [facility] CLIA [id number] [address] [place] [address] Calcium [Mass/Vol] 9.3 mg/dL Normal 8.5-10.2 [facility] Comment on above: Order Comment: Speci men Type: BLOOD SPECIMEN Ordering Facility: [facility] Address: [address] [place] [address] Performed By: #### 2 532-0, #### [facility] CLIA [id number] [address] [place] [address] Chloride [Moles/Vol] 105 mmol/L Normal 98-107 [facility] Comment on above: Order Comment: Speci men Type: BLOOD SPECIMEN Ordering Facility: [facility] Address: [facility] [place] [address] Performed By: #### 2 532-0, 05213-0 #### [facility] CLIA [id number] [address] [place] [address] CO2 [Moles/Vol] 26 mmol/L Normal 22-30 [facility] Comment on above: Order Comment: Speci men Type: BLOOD SPECIMEN Ordering Facility: [facility] Address: [address] [place] [address] Performed By: #### 2 532-0, 54999-0 #### [facility] CLIA [id number] [address] [place] [address] Creatinine [Mass/Vol] 1.20 mg/dL High 0.58-0.96 [facility] Comment on above: Order Comment: Speci men Type: BLOOD SPECIMEN Ordering Facility: [facility] Address: [address] [place] [address] Performed By: #### 2 532-0, 32904-3 #### [facility] CLIA [id number] [address] [place] [address] Creatinine and Glomerular filtration rate.predicted panel (S/P/Bld) 46 mL/min/1.73m??? Low >=60 [facility] Comment on above: Order Comment: Speci men Type: BLOOD SPECIMEN Ordering Facility: [facility] Address: [address] [place] [address] Result Comment: Aimee mated Glomerular Filtration Rate [...] actual GFR. Performed By: #### 2 532-0, 68508-4 #### [facility] CLIA [id number] [address] [place] [address] Glucose [Mass/Vol] 231 mg/dL High 74-99 [facility] Comment on above: Order Comment: Speci men Type: BLOOD SPECIMEN Ordering Facility: [facility] Address: [address] [place], [place] [address] Result Comment: The [place] Diabetes Association (ADA) provides guidance for cutoff [...] Standards of Medical Care in Diabetes 2016, [place] [employer]. Diabetes Care. 2016.39(Suppl 1). Performed By: #### 2 532-0, 34002-4 #### [facility] CLIA [id number] [address] [place] [address] Potassium [Moles/Vol] 5.3 mmol/L High 3.7-5.1 [facility] Comment on above: Order Comment: Speci men Type: BLOOD SPECIMEN Ordering Facility: [facility] Address: [address] [place] [address] Performed By: #### 2 532-0, 66835-8 #### [facility] CLIA [id number] [address] [place] [address] Protein [Mass/Vol] 6.9 g/dL Normal 6.3-8.0 [facility] Comment on above: Order Comment: Speci men Type: BLOOD SPECIMEN Ordering Facility: [facility] Address: [address] [place], [place] [address] Performed By: #### 2 532-0, 24617-1 #### [facility] CLIA [id number] [address] [place] [address] Sodium [Moles/Vol] 142 mmol/L Normal 136-144 [facility] Comment on above: Order Comment: Speci men Type: BLOOD SPECIMEN Ordering Facility: [facility] Address: [address] [place] [address] Performed By: #### 2 532-0, 87139-7 #### [facility] CLIA [id number] [address] [place] [address] Urea nitrogen [Mass/Vol] 36 mg/dL High 7-21 [facility] Comment on above: Order Comment: Speci men Type: BLOOD SPECIMEN Ordering Facility: [facility] Address: [address] [place] [address] Performed By: #### 2 532-0, 75597-9 #### [facility] CLIA [id number] [address] [place] [address] Eosinophils/100 WBC Auto (Bl d)on 05-26-2024 Eosinophils/100 WBC (Bld) Automated eosinophil % [facility] Erythrocyte distribution wid th Auto (RBC) [Ratio]on 05-26-2024 Erythrocyte distribution width (RBC) [Ratio] Erythrocyte distribution width [Ratio] by Automated count 11.5-15.0 [facility] Hematocrit Auto (Bld) [Volum e fraction]on 05-26-2024 Hematocrit (Bld) [Volume fraction] Hematocrit [Volume Fraction] of Blood by Automated count 36.0-46.0 [facility] Hemoglobin [Mass/volume] in Bloodon 05-26-2024 Hemoglobin (Bld) [Mass/Vol] Hemoglobin [Mass/volume] in Blood 11.5-15.5 [facility] LACTATE DEHYDROGENASEon 05-14 LDH [Catalytic activity/Vol] 184 U/L 135 - 214 U/L [facility] LDH SerPl-cCncon 05-26-2024 LDH [Catalytic activity/Vol] 184 U/L Normal 135-214 [facility] Comment on above: Order Comment: Speci men Type: BLOOD SPECIMEN Ordering Facility: [facility] Address: [address] [place] [address] Performed By: #### 2 532-0, 55095-8 #### [facility] CLIA [id number] [address] [place] [address] LDH [Catalytic activity/Vol] on 05-26-2024 Interpretation and review of laboratory results Normal [facility] Laboratory - Chemistry and C hemistry - challengeon 05-26-2024 Albumin [Mass/Vol] 4.1 g/dL 3.9-4.9 [facility] ALP [Catalytic activity/Vol] 107 U/L 34-123 [facility] ALT [Catalytic activity/Vol] 21 U/L 7-38 [facility] AST [Catalytic activity/Vol] 23 U/L 13-35 [facility] Bilirubin [Mass/Vol] 0.2 mg/dL 0.2-1.3 [facility] Calcium [Mass/Vol] 9.3 mg/dL 8.5-10.2 [facility] Chloride [Moles/Vol] 105 mmol/L 98-107 [facility] CO2 [Moles/Vol] 26 mmol/L 22-30 [facility] Creatinine [Mass/Vol] 1.20 mg/dL High 0.58-0.96 [facility] Glucose [Mass/Vol] 231 mg/dL High 74-99 [facility] Comment on above: The [place] Diabete s Association (ADA) provides guidance for [...] Standards of Medical Care in Diabetes 2016, [place] Diabetes Association. Diabetes Care. 2016.39(Suppl 1). LDH [Catalytic activity/Vol] 184 U/L 135-214 [facility] Potassium [Moles/Vol] 5.3 mmol/L High 3.7-5.1 [facility] Sodium [Moles/Vol] 142 mmol/L 136-144 [facility] Urea nitrogen [Mass/Vol] 36 mg/dL High 7-21 [facility] Laboratory - Hematology and Cell countson 05-26-2024 Eosinophils (Bld) [#/Vol] 0.19 10*3/uL <0.46 [facility] Leukocytes [#/volume] correc andreina for nucleated erythrocytes in Blood by Automated counon 05-26-2024 WBC corrected for nucl RBC Auto (Bld) [#/Vol] Leukocytes [#/volume] corrected for nucleated erythrocytes in Blood by Automated coun High 3.70-11.00 [facility] Comment on above: No clot detected.Res ults checked and verified. Lymphocytes Auto (Bld) [#/Vo l]on 05-26-2024 Lymphocytes (Bld) [#/Vol] Lymphocytes [#/volume] in Blood by Automated count High 1.00-4.00 [facility] Lymphocytes/100 WBC Auto (Bl d)on 05-26-2024 Lymphocytes/100 WBC (Bld) Lymphocytes/100 leukocytes in Blood by Automated count [facility] MCH Auto (RBC) [Entitic mass ]on 05-26-2024 MCH (RBC) [Entitic mass] MCH [Entitic ma ss] by Automated count 26.0-34.0 [facility] MCHC Auto (RBC) [Mass/Vol]on 05-26-2024 MCHC (RBC) [Mass/Vol] MCHC [Mass/volume] by Automated count 30.5-36.0 [facility] MCV Auto (RBC) [Entitic vol] on 05-26-2024 MCV (RBC) [Entitic vol] MCV [Entitic vol ume] by Automated count 80.0-100.0 [facility] Monocytes Auto (Bld) [#/Vol] on 05-26-2024 Monocytes (Bld) [#/Vol] Automated blood monocyte count <0.87 [facility] Monocytes/100 WBC Auto (Bld) on 05-26-2024 Monocytes/100 WBC (Bld) Automated monocyte % [facility] Neutrophils Auto (Bld) [#/Vo l]on 05-26-2024 Neutrophils (Bld) [#/Vol] Neutrophils [#/volume] in Blood by Automated count 1.45-7.50 [facility] Neutrophils/100 WBC Auto (Bl d)on 05-26-2024 Neutrophils/100 WBC (Bld) Automated neutrophil % [facility] No Panel Informationon 05-26 Estimated GFR (CKD-EPI) 46 mL/min/1.73m??? Low >=60 [facility] Comment on above: Estimated Glomerular Filtration Rate [...] Reviewed: see resu lts of individual morphologies [facility] Nucleated RBC Auto (Bld) [#/ Vol]on 05-26-2024 Nucleated RBC (Bld) [#/Vol] Nucleated erythrocytes [#/volume] in Blood by Automated count <0.01 [facility] Nucleated erythrocytes [Pres ence] in Blood by Automated counton 05-26-2024 Nucleated RBC Auto Ql (Bld) Nucleated erythrocytes [Presence] in Blood by Automated count [facility] Ovalocyte detectionon 2023 Ovalocytes LM Ql (Bld) Ovalocyte detection [facility] Platelet adequacy [Presence] in Blood by Light microscopyon 05-26-2024 Platelets LM Ql (Bld) Platelet adequacy [Presence] in Blood by Light microscopy [facility] Platelet mean volume Auto (B ld) [Entitic vol]on 05-26-2024 Platelet mean volume (Bld) [Entitic vol] Platelet mean volume [Entitic volume] in Blood by Automated count 9.0-12.7 [facility] Platelets Auto (Bld) [#/Vol] on 05-26-2024 Platelets (Bld) [#/Vol] Platelets [#/vol ume] in Blood by Automated count 150-400 [facility] Polychromasia [Presence] in Blood by Light microscopyon 05-26-2024 Polychromasia LM Ql (Bld) Polychromasia [Presence] in Blood by Light microscopy [facility] Protein [Mass/volume] in Ser um or Plasmaon 05-26-2024 Protein [Mass/Vol] Protein [Mass/volume ] in Serum or Plasma 6.3-8.0 [facility] RBC Auto (Bld) [#/Vol]on RBC (Bld) [#/Vol] Erythrocytes [#/volume] in Blood by Automated count 3.90-5.20 [facility] Serum or plasma anion gap de terminationon 05-26-2024 Anion gap [Moles/Vol] Serum or plasma an ion gap determination 8-15 [facility] X-ray reportOrdered By: Teddy Arndt on 05-26-2024 Study report [facility] [address] XRay Report Signed Patient: Kathy Washburn MR#: [id number] : 1940 Acct:[id number] Age/Sex: 83 / F ADM Date: 4 Loc: XD Room: Type: [facility] Attending Dr: Ayanna Vicente DO Copies to: Ayanna Vicente DO~ Ordering Provider: Ayanna Vicente DO Date of Service: 05/26/24 XR/XR hip LT min 2V(w/wo pelvis)*: M25.552 - Pain in left hip ([id number]) XR/XR knee LT 4V*: M25.552 - Pain [...] Stanford Arndt M.D.05/26/2024 4:55 PM Dictation Location: [facility] Transcribed By: [facility] 05/26/241654 Dictated By: Stanford Arndt DO 05/26/241652 Signed By: 05/26/241654 [facility] XR knee LT 4V*on 05-26-2024 XR knee LT 4V* [facility] [place] [address] [place] [address] XRay Report Signed Patient: Kathy Washburn MR#: [id number] : 1940 Acct:[id number] Age/Sex: 83 / F ADM Date: 05/26/24 Loc: XD Room: Type: [facility] Attending Dr: Ayanna Vicente DO Copies to: Ayanna Vicente DO Ordering Provider: Ayanna Vicente DO Date of Service: 05/26/24 XR/XR hip LT min 2V(w/wo pelvis)*: M25.552 - Pain in left hip ([id number]) XR/XR knee LT 4V*: M25.552 - Pain [...] Stanford Arndt M.D.05/26/2024 4:55 PM Dictation Location: [facility] Transcribed By: [facility] 05/26/241654 Dictated By: Stanford Arndt DO 05/26/241652 Signed By: 05/26/241654 Normal [facility] MM screening mammo BI w/CADo n 05-18-2024 MM screening mammo BI w/CAD [facility] [address] Mammography Report Signed Patient: Kathy Washburn MR#: [id number] : 1940 Acct:[id number] Age/Sex: 83 / F ADM Date: 05/18/24 Loc: [place] Room: Type: [facility] Attending Dr: Ayanna Vicente DO Copies [...] Stanford Arndt M.D.05/18/2024 3:23 PM Dictation Location: [facility] Transcribed By: [facility] 05/18/24 1523 Dictated By: Stanford Arndt DO 05/18/24 1459 Signed By: 05/18/24 1523 Normal [facility] Jose 05-17-2024 CNOV Office Visit (INEZ ) KATHY WASHBURN ([id number]) 1940 F Date Time Provider Department 05/17/24 1:00 PM ZOHAIB GERMAN During your visit today, we recorded the following information about you: Pulse Blood pressure Weight Height 62/minute 117/75 103.4 kg 1.727 m Zohaib German MD 05/17/2024 1:34 PM Signed [facility] Date of Service: 05/17/2024 Patient: Kathy Washburn Medical Record: [id number] Primary Care Physician: Ayanna Vicente DO Last Rheumatology visit: None at [facility] Referring Provider: No referring provider defined [...] Use Topics (more content not included)... Normal [facility] A1C with Estimated Average G sagrarion 05-06-2024 Glucose [Mass/Vol] 194 mg/dL Normal [facility] Comment on above: Result Comment: PERF ORMED BY: [place] [address] PATHOLOGIST [employer] RO[employer] SUPERVISOR MATHIEU RASCON M.D. Performed By: #### L IPID, A1C WT eA, T4F, URMACRERAT, TSH3, CUU, CMP, ADDONUAPLUS, T3T ####[id number] Alanine aminotransferase [En zymatic activity/volume] in Serum or PlasmaOrdered By: Ayanna Vicente on 05-06-2024 ALT [Catalytic activity/Vol] 25 U/L Normal [facility] Comment on above: Performed By: #### L IPID, A1C WT eA, T4F, URMACRERAT, TSH3, CUU, CMP, ADDONUAPLUS, T3T #### [facility] [address] ALT [Catalytic activity/Vol] Alanine aminotransferase [Enzymatic activity/volume] in Serum or Plasma [facility] Albumin [Mass/volume] in Ser um or Plasma by Bromocresol green (BCG) dye binding methoOrdered By: Ayanna Vicente on 05-06-2024 Albumin BCG dye [Mass/Vol] 4.1 g/dL 3.5-5.7 [facility] Albumin BCG dye [Mass/Vol] Albumin [Mass/volume] in Serum or Plasma by Bromocresol green (BCG) dye binding metho 3.5-5.7 [facility] Alkaline phosphatase [Enzyma tic activity/volume] in Serum or PlasmaOrdered By: Ayanna Vicente on 05-06-2024 ALP [Catalytic activity/Vol] 89 U/L Normal 34-104 [facility] Comment on above: Performed By: #### L IPID, A1C WTH eA, T4F, URMACRERAT, TSH3, CUU, CMP, ADDONUAPLUS, T3T #### [facility] [address] [place] [address] [place] ALP [Catalytic activity/Vol] Alkaline phosphatase [Enzymatic activity/volume] in Serum or Plasma 34-104 [facility] Appearance of UrineOrdered B y: Ayanna Vicente on 05-06-2024 Appearance (U) Urine appearance Clear [facility] Aspartate aminotransferase [ Enzymatic activity/volume] in Serum or PlasmaOrdered By: Ayanna Vicente on 05-06-2024 AST [Catalytic activity/Vol] 23 U/L Normal 13-39 [facility] Comment on above: Performed By: #### L IPID, A1C WTH eA, T4F, URMACRERAT, TSH3, CUU, CMP, ADDONUAPLUS, T3T #### [facility] [address] [place] [address] [place] AST [Catalytic activity/Vol] Aspartate aminotransferase [Enzymatic activity/volume] in Serum or Plasma 13-39 [facility] Bacteria [Presence] in Urine sediment by Light microscopyOrdered By: Ayanna Vicente on 05-06-2024 Bacteria LM Ql (Urine sed) 4+ [HPF] High None Seen [facility] Bacteria LM Ql (Urine sed) Bacteria [Presence] in Urine sediment by Light microscopy High None Seen [facility] Bilirubin Test strip Ql (U)O rdered By: Ayanna Vicente on 05-06-2024 Bilirubin Ql (U) Negative Negative [facility] Bilirubin Ql (U) Bilirubin.total [Presence] in Urine by Test strip Negative [facility] Bilirubin.total [Mass/volume ] in Serum or PlasmaOrdered By: Ayanna Vicente on 05-06-2024 Bilirubin [Mass/Vol] 0.4 mg/dL Normal 0.3-1.0 [facility] Comment on above: Performed By: #### L IPID, A1C WTH eA, T4F, URMACRERAT, TSH3, CUU, CMP, ADDONUAPLUS, T3T #### [facility] [address] [place] [id number] [place] Bilirubin [Mass/Vol] Bilirubin.total [Mass/volume] in Serum or Plasma 0.3-1.0 [facility] Blood estimated average gluc ose determination by estimation from glycated hemoglobinOrdered By: Ayanna Vicente on 05-06-2024 Average glucose Estimated from glycated hemoglobin (Bld) [Mass/Vol] Glucose mean value [Mass/volume] in Blood Estimated from glycated hemoglobin [facility] Calcium [Mass/volume] in Ser um or PlasmaOrdered By: Ayanna Vicente on 05-06-2024 Calcium [Mass/Vol] 9.6 mg/dL Normal 8.6-10.3 [facility] Comment on above: Performed By: #### L IPID, A1C WTH eA, T4F, URMACRERAT, TSH3, CUU, CMP, ADDONUAPLUS, T3T #### [facility] [address] Calcium [Mass/Vol] Calcium [Mass/volume ] in Serum or Plasma 8.6-10.3 [facility] Carbon dioxide, total [Moles /volume] in Serum or PlasmaOrdered By: Ayanna Vicente on 05-06-2024 CO2 [Moles/Vol] 30.2 mmol/L Normal 21.0-31.0 [facility] Comment on above: Performed By: #### L IPID, A1C WTH eA, T4F, URMACRERAT, TSH3, CUU, CMP, ADDONUAPLUS, T3T #### [facility] [address] [place] [address] [place] CO2 [Moles/Vol] Carbon dioxide, tota l [Moles/volume] in Serum or Plasma 21.0-31.0 [facility] Chloride [Moles/volume] in S ebony or PlasmaOrdered By: Ayanna Vicente on 05-06-2024 Chloride [Moles/Vol] 105 mmol/L Normal 98-107 [facility] Comment on above: Performed By: #### L IPID, A1C WTH eA, T4F, URMACRERAT, TSH3, CUU, CMP, ADDONUAPLUS, T3T #### [facility] [address] [place] [id number] [place] Chloride [Moles/Vol] Chloride [Moles/volume] in Serum or Plasma 98-107 [facility] Cholesterol [Mass/volume] in Serum or PlasmaOrdered By: Ayanna Vicente on 05-06-2024 Cholesterol [Mass/Vol] 134 mg/dL Low 140-200 [facility] Comment on above: Chol less than 200 [...] [facility] [address] Cholesterol [Mass/Vol] Cholesterol [Mass/volume] in Serum or Plasma Low 140-200 [facility] Comment on above: Chol less than 200 m g/dl low riskChol 201-239 mg/dl borderline riskChol 240 mg/dl and greater high risk Cholesterol in HDL [Mass/vol ume] in Serum or PlasmaOrdered By: Ayanna Vicente on 05-06-2024 Cholesterol in HDL [Mass/Vol] Serum or plasma high density lipoprotein (HDL) cholesterol measurement 23-92 [facility] Comment on above: HDL CHOL ATP-III CLA SSIFICATION Cardiovascular RiskHDL > or equal to 60 mg/dL LOWHDL < 40 mg/dL HIGH Cholesterol in LDL Calc [Mas s/Vol]Ordered By: Ayanna Vicente on 05-06-2024 Cholesterol in LDL [Mass/Vol] 46 mg/dL 0-100 [facility] Comment on above: LDL ATP III CLASSIFI CATIONLDL less than 100 mg/dL OptimalLDL 100-129 mg/dL Near or above optimalLDL 130-159 mg/dL Borderline highLDL 160-189 mg/dL HighLDL greater than 189 mg/dL Very high Cholesterol in LDL [Mass/Vol] Cholesterol in LDL [Mass/volume] in Serum or Plasma by calculation 0-100 [facility] Comment on above: LDL ATP III CLASSIFI CATIONLDL less than 100 mg/dL OptimalLDL 100-129 mg/dL Near or above optimalLDL 130-159 mg/dL Borderline highLDL 160-189 mg/dL HighLDL greater than 189 mg/dL Very high Cholesterol in VLDL Calc [Ma ss/Vol]Ordered By: Ayanna Vicente on 05-06-2024 Cholesterol in VLDL [Mass/Vol] 47 mg/dL [facility] Cholesterol in VLDL [Mass/Vol] Cholesterol in VLDL [Mass/volume] in Serum or Plasma by calculation [facility] Color Auto (U)Ordered By: Vasile Vicente on 05-06-2024 Color (U) Color of Urine by Auto Yellow [facility] Color of Urine by AutoOrdere d By: Ayanna Vicente on 05-06-2024 Color (U) Yellow Normal Yellow [facility] Comment on above: Order Comment: Name Collection Type:: Clean-Voided Midstream Performed By: #### L IPID, A1C WTH eA, T4F, URMACRERAT, TSH3, CUU, CMP, ADDONUAPLUS, T3T #### [facility] [address] [place] [address] Comprehensive Metabolic Pane curt 05-06-2024 Albumin [Mass/Vol] 4.1 g/dL Normal 3.5-5.7 [facility] Comment on above: Performed By: #### L IPID, A1C WTH eA, T4F, URMACRERAT, TSH3, CUU, CMP, ADDONUAPLUS, T3T #### [facility] [address] [place] [address] GFR/1.73 sq M.predicted MDRD (S/P/Bld) [Vol rate/Area] 51.605 mL/min/{1.73_m2} Normal [facility] Comment on above: Performed By: #### L IPID, A1C WTH eA, T4F, URMACRERAT, TSH3, CUU, CMP, ADDONUAPLUS, T3T #### [facility] [address] [place] [address] [place] Creatinine [Mass/volume] in Serum or PlasmaOrdered By: Ayanna Vicente on 05-06-2024 Creatinine [Mass/Vol] 1.08 mg/dL Normal 0.60-1.20 [facility] Comment on above: Performed By: #### L IPID, A1C WTH eA, T4F, URMACRERAT, TSH3, CUU, CMP, ADDONUAPLUS, T3T #### [facility] [address] Creatinine [Mass/Vol] Creatinine [Mass/volume] in Serum or Plasma 0.60-1.20 [facility] Creatinine [Mass/volume] in UrineOrdered By: Ayanna Vicente on 05-06-2024 Creatinine (U) [Mass/Vol] 93.00 mg/dL [facility] Comment on above: No reference range e stablished Creatinine (U) [Mass/Vol] Creatinine [Mass/volume] in Urine [facility] Comment on above: No reference range e stablished Dipstick and Microscopicon Bacteria,Urine 4+ High None Seen [facility] Comment on above: Order Comment: Name Collection Type:: Clean-Voided Midstream Performed By: #### L IPID, A1C WTH eA, T4F, URMACRERAT, TSH3, CUU, CMP, ADDONUAPLUS, T3T #### [facility] [address] [place] [address] [place] Bilirubin,Urine Negative Normal Negative [facility] Comment on above: Order Comment: Name Collection Type:: Clean-Voided Midstream Performed By: #### L IPID, A1C WTH eA, T4F, URMACRERAT, TSH3, CUU, CMP, ADDONUAPLUS, T3T #### [facility] [address] [place] [address] [place] Glucose Ql (U) Normal Normal Normal [facility] Comment on above: Order Comment: Name Collection Type:: Clean-Voided Midstream Performed By: #### L IPID, A1C WTH eA, T4F, URMACRERAT, TSH3, CUU, CMP, ADDONUAPLUS, T3T #### [facility] [address] [place] [address] [place] Hyaline Casts,Urine 5-9 High 0-1 [facility] Comment on above: Order Comment: Name Collection Type:: Clean-Voided Midstream Result Comment: PERF ORMED BY: [facility] [address] [place] [id number] PATHOLOGIST [employer] SUPERVISOR MATHIEU RASCON M.D. Performed By: #### L IPID, A1C WTH eA, T4F, URMACRERAT, TSH3, CUU, CMP, ADDONUAPLUS, T3T #### [facility] [address] [place] [address] [place] Nitrite,Urine Negative Normal Negative [facility] Comment on above: Order Comment: Name Collection Type:: Clean-Voided Midstream Performed By: #### L IPID, A1C WTH eA, T4F, URMACRERAT, TSH3, CUU, CMP, ADDONUAPLUS, T3T #### [place] [address] [place] Occult Blood,Urine Negative Normal Negative [facility] Comment on above: Order Comment: Name Collection Type:: Clean-Voided Midstream Performed By: #### L IPID, A1C WTH eA, T4F, URMACRERAT, TSH3, CUU, CMP, ADDONUAPLUS, T3T #### [place] [address] [place] Protein,Urine Trace High Negative [facility] Comment on above: Order Comment: Name Collection Type:: Clean-Voided Midstream Performed By: #### L IPID, A1C WTH eA, T4F, URMACRERAT, TSH3, CUU, CMP, ADDONUAPLUS, T3T #### [place] [address] [place] RBC LM.HPF (Urine sed) [#/Area] 0 /[HPF] Normal 0-4 [facility] Comment on above: Order Comment: Name Collection Type:: Clean-Voided Midstream Performed By: #### L IPID, A1C WTH eA, T4F, URMACRERAT, TSH3, CUU, CMP, ADDONUAPLUS, T3T #### [place] [address] [place] Specificy [place],Urine 1.020 Normal 1.001-1.030 [facility] Comment on above: Order Comment: Name Collection Type:: Clean-Voided Midstream Performed By: #### L IPID, A1C WTH eA, T4F, URMACRERAT, TSH3, CUU, CMP, ADDONUAPLUS, T3T #### [address] Squamous Epithelial Cell,Urine 3-4 High 0-2 [facility] Comment on above: Order Comment: Name Collection Type:: Clean-Voided Midstream Performed By: #### L IPID, A1C WTH eA, T4F, URMACRERAT, TSH3, CUU, CMP, ADDONUAPLUS, T3T #### [address] Urobilinogen,Urine Normal Normal Normal [facility] Comment on above: Order Comment: Name Collection Type:: Clean-Voided Midstream Performed By: #### L IPID, A1C WTH eA, T4F, URMACRERAT, TSH3, CUU, CMP, ADDONUAPLUS, T3T #### [address] WBC,Urine 10-19 High 0-4 [facility] Comment on above: Order Comment: Name Collection Type:: Clean-Voided Midstream Performed By: #### L IPID, A1C WTH eA, T4F, URMACRERAT, TSH3, CUU, CMP, ADDONUAPLUS, T3T #### [address] Epithelial cells.squamous [# /area] in Urine sediment by Microscopy high power fieldOrdered By: Ayanna Vicente on 05-06-2024 Epithelial cells.squamous LM.HPF (Urine sed) [#/Area] 3-4 [HPF] High 0-2 [facility] Epithelial cells.squamous LM.HPF (Urine sed) [#/Area] Epithelial cells.squamous [#/area] in Urine sediment by Microscopy high power field High 0-2 [facility] Erythrocytes [#/area] in Uri ne sediment by Microscopy high power fieldOrdered By: Ayanna Vicente on 05-06-2024 RBC LM.HPF (Urine sed) [#/Area] 0-1 [HPF] 0-4 [facility] RBC LM.HPF (Urine sed) [#/Area] Erythrocytes [#/area] in Urine sediment by Microscopy high power field 0-4 [facility] Globulin Calc (S) [Mass/Vol] Ordered By: Ayanna Vicente on 05-06-2024 Globulin (S) [Mass/Vol] Serum globulin measurement by calculation (mass/volume) [facility] Glucose [Mass/volume] in Ser um or PlasmaOrdered By: Ayanna Vicente on 05-06-2024 Glucose [Mass/Vol] 129 mg/dL High 70-100 [facility] Comment on above: ADA recommended refe rence rangeRandom Glucose Reference Range is dependent on time and content of last meal. Glucose of more than 200 mg/dL in a nonstressed, ambulatory subject supports the diagnosis of Diabetes Mellitus. Result Comment: [place] om Glucose Reference Range is dependent on time and content of last meal. Glucose of more than 200 mg/dL in a nonstressed, ambulatory subject supports the diagnosis of Diabetes Mellitus. ADA recommended reference range Performed By: #### L IPID, A1C WTH eA, T4F, URMACRERAT, TSH3, CUU, CMP, ADDONUAPLUS, T3T #### [facility] [address] Glucose [Mass/Vol] Glucose [Mass/volume ] in Serum or Plasma High 70-100 [facility] Comment on above: ADA recommended refe rence rangeRandom Glucose Reference Range is dependent on time and content of last meal. Glucose of more than 200 mg/dL in a nonstressed, ambulatory subject supports the diagnosis of Diabetes Mellitus. Glucose [Mass/volume] in Uri ne by Test stripOrdered By: Ayanna Vicente on 05-06-2024 Glucose Test strip (U) [Mass/Vol] Normal mg/dL Normal [facility] Glucose Test strip (U) [Mass/Vol] Glucose [Mass/volume] in Urine by Test strip Normal [facility] Glucose mean value [Mass/vol ume] in Blood Estimated from glycated hemoglobinOrdered By: Ayanna Vicente on 05-06-2024 Average glucose Estimated from glycated hemoglobin (Bld) [Mass/Vol] 194 mg/dL [facility] Hemoglobin A1c percentageOrd ered By: Ayanna Vicente on 05-06-2024 HbA1c (Bld) [Mass fraction] 8.4 % High 4.3-5.6 [facility] Comment on above: Increased risk for d iabetes: 5.7 - 6.4diabetes: >6.4glycemic control for adults with diabetes: <7.0 Result Comment: Incr eased risk for diabetes: 5.7 - 6.4 diabetes: >6.4 glycemic control for adults with diabetes: <7.0 Performed By: #### L IPID, A1C WTH eA, T4F, URMACRERAT, TSH3, CUU, CMP, ADDONUAPLUS, T3T ####[facility] [id number] [place] [address] [facility] Hemoglobin A1c/Hemoglobin.to dayna in BloodOrdered By: Ayanna Vicente on 05-06-2024 HbA1c (Bld) [Mass fraction] Hemoglobin A1c percentage High 4.3-5.6 [facility] Comment on above: Increased risk for d iabetes: 5.7 - 6.4diabetes: >6.4glycemic control for adults with diabetes: <7.0 Hemoglobin Test strip Ql (U) Ordered By: Ayanna Vicente on 05-06-2024 Hemoglobin Ql (U) Negative Negative [facility] Hemoglobin Ql (U) Hemoglobin [Presence ] in Urine by Test strip Negative [facility] Hyaline casts LM.LPF (Urine sed) [#/Area]Ordered By: Ayanna Vicente on 05-06-2024 Hyaline casts (Urine sed) [#/Area] 5-9 [LPF] High 0-1 [facility] Hyaline casts (Urine sed) [#/Area] Hyaline casts [#/area] in Urine sediment by Microscopy low power field High 0-1 [facility] Ketones Test strip Ql (U)Ord ered By: Ayanna Vicente on 05-06-2024 Ketones Ql (U) Ketones [Presence] i n Urine by Test strip Negative [facility] Ketones [Presence] in Urine by Test stripOrdered By: Ayanna Vicente on 05-06-2024 Ketones Ql (U) Negative Normal Negative [facility] Comment on above: Order Comment: Name Collection Type:: Clean-Voided Midstream Performed By: #### L IPID, A1C WTH eA, T4F, URMACRERAT, TSH3, CUU, CMP, ADDONUAPLUS, T3T #### [facility] [address] [place] [address] Laboratory - Microbiology an d Antimicrobial susceptibilityOrdered By: Ayanna Vicente on 05-06-2024 Bacteria identified Cx Nom (U) Klebsiella variicola Abnormal [facility] Bacteria identified Cx Nom (U) Klebsiella variicola Abnormal [facility] Leukocyte esterase [Presence ] in Urine by Test stripOrdered By: Ayanna Vicente on 05-06-2024 Leukocyte esterase Test strip Ql (U) 2+ High Negative [facility] Comment on above: Order Comment: Name Collection Type:: Clean-Voided Midstream Performed By: #### L IPID, A1C WTH eA, T4F, URMACRERAT, TSH3, CUU, CMP, ADDONUAPLUS, T3T #### [facility] [address] [place] [address] Leukocyte esterase Test strip Ql (U) Leukocyte esterase [Presence] in Urine by Test strip High Negative [facility] Leukocytes [#/area] in Urine sediment by Microscopy high power fieldOrdered By: Ayanna Vicente on 05-06-2024 WBC LM.HPF (Urine sed) [#/Area] 10-19 [HPF] High 0-4 [facility] WBC LM.HPF (Urine sed) [#/Area] Leukocytes [#/area] in Urine sediment by Microscopy high power field High 0-4 [facility] Lipid Panelon 05-06-2024 LDL Cholesterol,Calculated 46 mg/dL Normal 0-100 [facility] Comment on above: Result Comment: LDL ATP III CLASSIFICATION LDL less than 100 mg/dL Optimal LDL 100-129 mg/dL Near or above optimal LDL 130-159 mg/dL Borderline high LDL 160-189 mg/dL High LDL greater than 189 mg/dL Very high Performed By: #### L IPID, A1C WTH eA, T4F, URMACRERAT, TSH3, CUU, CMP, ADDONUAPLUS, T3T #### [facility] [address] [place] [address] Triglyceride w/Reflex 235 mg/dL High 0-149 [facility] Comment on above: Result Comment: TRIG ATP III CLASSIFICATION TRIG less than 150 mg/dL Normal TRIG 150-199 mg/dL Borderline high TRIG 200-500 mg/dL High TRIG greater than 500 mg/dL Very high Standard traceable to the Center for Disease Conrtrol and Prevention (CDC) test method. Performed By: #### L IPID, A1C WTH eA, T4F, URMACRERAT, TSH3, CUU, CMP, ADDONUAPLUS, T3T #### [address] VLDL CHOLESTEROL 47 mg/dL Normal [facility] Comment on above: Performed By: #### L IPID, A1C WTH eA, T4F, URMACRERAT, TSH3, CUU, CMP, ADDONUAPLUS, T3T #### [address] MicroAlb Creat Ratio,Uon Creatinine, Urine (Random) 93.00 mg/dL Normal [facility] Comment on above: Result Comment: No r eference range established Performed By: #### L IPID, A1C WTH eA, T4F, URMACRERAT, TSH3, CUU, CMP, ADDONUAPLUS, T3T #### [address] Microalbumin/Creatinine Ratio 17.2 mg/g Normal 0.0-30.0 [facility] Comment on above: Result Comment: 30-3 00 mg/g indicates an increased risk for diabetic nephropathy. Greater than 300 mg/g is consistent with clinical nephropathy. (Am. J. Kidney Disease 1995, 25:107) PERFORMED BY: [place] [address] PATHOLOGIST [employer] SUPERVISOR MATHIEU RASCON M.D. Performed By: #### L IPID, A1C WTH eA, T4F, URMACRERAT, TSH3, CUU, CMP, ADDONUAPLUS, T3T #### [address] Microalbumin [Mass/volume] i n UrineOrdered By: Ayanna Vicente on 05-06-2024 Albumin DL <= 20 mg/L (U) [Mass/Vol] 1.6 mg/dL Normal 0.0-1.8 [facility] Comment on above: Performed By: #### L IPID, A1C WTH eA, T4F, URMACRERAT, TSH3, CUU, CMP, ADDONUAPLUS, T3T #### [facility] [address] Albumin DL <= 20 mg/L (U) [Mass/Vol] Microalbumin [Mass/volume] in Urine 0.0-1.8 [facility] Nitrite Test strip Ql (U)Ord ered By: Ayanna Vicente on 05-06-2024 Nitrite Ql (U) Negative Negative [facility] Nitrite Ql (U) Nitrite [Presence] i n Urine by Test strip Negative [facility] No Panel InformationOrdered By: Ayanna Vicente on 05-06-2024 Estimated GFR (CKD-EPI) 51.605 mL/Min [facility] Creatinine Clearance (Chem N/A [facility] Potassium [Moles/volume] in Serum or PlasmaOrdered By: Ayanna Vicente on 05-06-2024 Potassium [Moles/Vol] 5.1 mmol/L Normal 3.5-5.1 [facility] Comment on above: Performed By: #### L IPID, A1C WTH eA, T4F, URMACRERAT, TSH3, CUU, CMP, ADDONUAPLUS, T3T #### [address] Potassium [Moles/Vol] Potassium [Moles/volume] in Serum or Plasma 3.5-5.1 [facility] Protein Test strip (U) [Mass /Vol]Ordered By: Ayanna Vicente on 05-06-2024 Protein (U) [Mass/Vol] Trace mg/dL High Negative F [facility] Protein (U) [Mass/Vol] Protein [Mass/vol ume] in Urine by Test strip High Negative [facility] Protein [Mass/volume] in Ser um or PlasmaOrdered By: Ayanna Vicente on 05-06-2024 Protein [Mass/Vol] 6.8 g/dL Normal 6.4-8.9 [facility] Comment on above: Performed By: #### L IPID, A1C WTH eA, T4F, URMACRERAT, TSH3, CUU, CMP, ADDONUAPLUS, T3T #### [facility] [address] Protein [Mass/Vol] Protein [Mass/volume ] in Serum or Plasma 6.4-8.9 [facility] Serum globulin measurement b y calculation (mass/volume)Ordered By: Ayanna Vicente on 05-06-2024 Globulin (S) [Mass/Vol] 2.7 g/dL Normal [facility] Comment on above: Performed By: #### L IPID, A1C WTH eA, T4F, URMACRERAT, TSH3, CUU, CMP, ADDONUAPLUS, T3T #### [facility] [address] Serum or plasma albumin/glob ulin mass ratioOrdered By: Ayanna Vicente on 05-06-2024 Albumin/Globulin [Mass ratio] 1.5 {ratio} Normal [facility] Comment on above: Performed By: #### L IPID, A1C WTH eA, T4F, URMACRERAT, TSH3, CUU, CMP, ADDONUAPLUS, T3T #### [facility] [address] Albumin/Globulin [Mass ratio] Serum or plasma albumin/globulin mass ratio [facility] Serum or plasma anion gap de terminationOrdered By: Ayanna Vicente on 05-06-2024 Anion gap [Moles/Vol] 10.9 mmol/L Normal 6.0-15.0 [facility] Comment on above: Performed By: #### L IPID, A1C WTH eA, T4F, URMACRERAT, TSH3, CUU, CMP, ADDONUAPLUS, T3T #### [facility] [address] Anion gap [Moles/Vol] Serum or plasma an ion gap determination 6.0-15.0 [facility] Serum or plasma high density lipoprotein (HDL) cholesterol measurementOrdered By: Ayanna Vicente on 05-06-2024 Cholesterol in HDL [Mass/Vol] 41 mg/dL Normal 23-92 [facility] Comment on above: HDL CHOL ATP-III CLA SSIFICATION Cardiovascular RiskHDL > or equal to 60 mg/dL LOWHDL < 40 mg/dL HIGH Result Comment: HDL CHOL ATP-III CLASSIFICATION Cardiovascular Risk HDL > or equal to 60 mg/dL LOW HDL < 40 mg/dL HIGH Performed By: #### L IPID, A1C WTH eA, T4F, URMACRERAT, TSH3, CUU, CMP, ADDONUAPLUS, T3T #### [facility] [address] Serum or plasma total choles terol/high density lipoprotein (HDL) cholesterol mass ratOrdered By: Ayanna Vicente on 05-06-2024 Cholesterol.total/Choles terol in HDL [Mass ratio] 3.3 {ratio} Normal <5.0 [facility] Comment on above: Performed By: #### L IPID, A1C WT eA, T4F, URMACRERAT, TSH3, CUU, CMP, ADDONUAPLUS, T3T #### [facility] [address] Cholesterol.total/Choles terol in HDL [Mass ratio] Serum or plasma total cholesterol/high density lipoprotein (HDL) cholesterol mass rat <5.0 [facility] Sodium [Moles/volume] in Ser um or PlasmaOrdered By: Ayanna Vicente on 05-06-2024 Sodium [Moles/Vol] 141 mmol/L Normal 136-145 [facility] Comment on above: Performed By: #### L IPID, A1C WTH eA, T4F, URMACRERAT, TSH3, CUU, CMP, ADDONUAPLUS, T3T #### [facility] [address] Sodium [Moles/Vol] Sodium [Moles/volume ] in Serum or Plasma 136-145 [facility] Specific gravity Test strip (U) [Rel density]Ordered By: Ayanna Vicente on 05-06-2024 Specific gravity (U) [Rel density] 1.020 1.001-1.030 [facility] Specific gravity (U) [Rel density] Specific gravity of Urine by Test strip 1.001-1.030 [facility] Thyrotropin [Units/volume] i n Serum or PlasmaOrdered By: Ayanna Vicente on 05-06-2024 TSH Qn 1.93 m[IU]/L Normal 0.45-5.33 [facility] Comment on above: Result Comment: PERF ORMED BY: [facility] [address] [facility] [place] [id number] PATHOLOGIST [employer] SUPERVIS[employer] MATHIEU RASCON M.D. Performed By: #### L IPID, A1C [facility] eA, T4F, URMACRERAT, TSH3, CUU, CMP, ADDONUAPLUS, T3T ####[place] [address] [place] [id number] [facility] TSH Qn Thyrotropin [Units/volume] in Serum or Plasma 0.45-5.33 [facility] Thyroxine (T4) free [Mass/vo lume] in Serum or PlasmaOrdered By: Ayanna Vicente on 05-06-2024 Free T4 [Mass/Vol] 0.94 ng/dL Normal 0.61-1.12 [facility] Comment on above: Performed By: #### L IPID, A1C WTH eA, T4F, URMACRERAT, TSH3, CUU, CMP, ADDONUAPLUS, T3T ####[place] [id number] [place] [id number] [facility] Free T4 [Mass/Vol] Thyroxine (T4) free [Mass/volume] in Serum or Plasma 0.61-1.12 [facility] Triglyceride [Mass/volume] i n Serum or PlasmaOrdered By: Ayanna Vicente on 05-06-2024 Triglyceride [Mass/Vol] 235 mg/dL High 0-149 F [facility] Comment on above: TRIG ATP III CLASSIF ICATIONTRIG less than 150 mg/dL NormalTRIG 150-199 mg/dL Borderline highTRIG 200-500 mg/dL High TRIG greater than 500 mg/dL Very highStandard traceable to the Center for Disease Conrtrol and Prevention (CDC) test method. Triglyceride [Mass/Vol] Triglyceride [Mass/volume] in Serum or Plasma High 0-149 [facility] Comment on above: TRIG ATP III CLASSIF ICATIONTRIG less than 150 mg/dL NormalTRIG 150-199 mg/dL Borderline highTRIG 200-500 mg/dL High TRIG greater than 500 mg/dL Very highStandard traceable to the Center for Disease Conrtrol and Prevention (CDC) test method. Triiodothyronine (T3) Totalo n 05-06-2024 Triiodothyronine (T3) Total 0.89 ng/mL Normal 0.87-1.78 [facility] Comment on above: Performed By: #### L IPID, A1C [facility] eA, T4F, URMACRERAT, TSH3, CUU, CMP, ADDONUAPLUS, T3T ####[facility] [id number] Triiodothyronine (T3) [Mass/ volume] in Serum or PlasmaOrdered By: Ayanna Vicente on 05-06-2024 T3 [Mass/Vol] 0.89 ng/mL 0.87-1.78 [facility] T3 [Mass/Vol] Triiodothyronine (T3 ) [Mass/volume] in Serum or Plasma 0.87-1.78 [facility] Urea nitrogen [Mass/volume] in Serum or PlasmaOrdered By: Ayanna Vicente on 05-06-2024 Urea nitrogen [Mass/Vol] 29 mg/dL High 02-04 [facility] Comment on above: Performed By: #### L IPID, A1C [facility] eA, T4F, URMACRERAT, TSH3, CUU, CMP, ADDONUAPLUS, T3T #### [facility] [address] Urea nitrogen [Mass/Vol] Urea nitrogen [Mass/volume] in Serum or Plasma High 02-04 [facility] Urine Cultureon 05-06-2024 Bacteria identified Cx Nom (U) ORGANISM: Klebsiella variicola (O:KLEVAR) [place] Count >100,000 Aerobic CORNELIA Charge ([id number]) ---- [...] RESISTANT TO ALL B-LACTAM DRUGS. PERFORMED BY: [facility] [address] [place] [address] PATHOLOGIST [employer] SUPERVISOR MATHIEU RASCON M.D. Normal [facility] Comment on above: Performed By: #### L IPID, A1C WT eA, T4F, URMACRERAT, TSH3, CUU, CMP, ADDONUAPLUS, T3T ####[facility] [id number] Urine appearanceOrdered By: Ayanna Vicente on 05-06-2024 Appearance (U) Clear Normal Clear [facility] Comment on above: Order Comment: Name Collection Type:: Clean-Voided Midstream Performed By: #### L IPID, A1C WTH eA, T4F, URMACRERAT, TSH3, CUU, CMP, ADDONUAPLUS, T3T #### [facility] [address] Urine cultureOrdered By: Aftab Vicente on 05-06-2024 Bacteria identified Cx Nom (U) Abnormal [facility] Urine microalbumin/creatinin e mass ratioOrdered By: Ayanna Vicente on 05-06-2024 Albumin/Creatinine DL <= 20 mg/L (U) [Mass ratio] 17.2 mg/g 0.0-30.0 [facility] Comment on above: 30-300 mg/g indicate s an increased risk for diabetic nephropathy. Greater than 300 mg/g is consistent with clinical nephropathy. (Am. J. Kidney Disease 1995, 25:107) Albumin/Creatinine DL <= 20 mg/L (U) [Mass ratio] Urine microalbumin/creatini ne mass ratio 0.0-30.0 [facility] Comment on above: 30-300 mg/g indicate s an increased risk for diabetic nephropathy. Greater than 300 mg/g is consistent with clinical nephropathy. (Am. J. Kidney Disease 1995, 25:107) Urobilinogen Test strip (U) [Mass/Vol]Ordered By: Ayanna Vicente on 05-06-2024 Urobilinogen (U) [Mass/Vol] Normal mg/dL Normal [facility] Urobilinogen (U) [Mass/Vol] Urobilinogen [Mass/volume] in Urine by Test strip Normal [facility] pH Test strip (U)Ordered By: Ayanna Vicente on 05-06-2024 pH (U) pH of Urine by Test strip 5.0-9.0 [facility] pH of Urine by Test stripOrd ered By: Ayanna Vicente on 05-06-2024 pH (U) 5.5 [pH] Normal 5.0-9.0 [facility] Comment on above: Order Comment: Name Collection Type:: Clean-Voided Midstream Performed By: #### L IPID, A1C WTH eA, T4F, URMACRERAT, TSH3, CUU, CMP, ADDONUAPLUS, T3T #### [facility] [address] Ambulatory Visit Summaryon 0 02-24-2024 Ambulatory [...] 6 mos (no labs) Where: [address] [place] [address] [phone] Medications What How Much When Why Instructions [...] social activities (more content not included)... Normal [facility] Urology Office/Clinic Noteon 02-24-2024 Urology Office/Clinic [...] (N32.81: Overactive bladder) S/p Botox 100u 08/30/21. -[place] sxs only improved for a few weeks [...] Contact Information JAX BECKMAN, SUSAN Miller, URL [address] [place] [address] [phone] Additional Instructions: 6 mos (no labs) Patient Education Overactive Bladder, Adult Documentation recorded by the scribe Sarah Ospina accurately reflects the services(s) I performed [...] mg Tab, (more content not included)... Normal [facility] Comment on above: Result Comment: Elec tronically Signed By: JAX BECKMAN, SUSAN Miller\.br\Date and Time Signed: 02/24/24 10:53 EDT\.br\Electronically Co-Signed By: Sarah Ospina\.br\Date and Time Co-Signed: 02/24/24 10:44 EDT\.br\Electronically Co-Signed By: Sarah Ospina\.br\Date and Time Co-Signed: 02/24/24 10:47 EDT Laboratory - Chemistry and C hemistry - challengeon 02-04-2024 Bilirubin Ql (U) Negative NEGATIVE [facility] Glucose (U) [Mass/Vol] Negative NEGATIVE [facility] Ketones Ql (U) Negative NEGATIVE [facility] pH (U) 6.0 [pH] 5.0-9.0 [facility] Specific gravity (U) [Rel density] >=1.030 Abnormal 1.005-1.025 [facility] Urobilinogen Qn (U) 0.2 {Jose'U}/dL 0.2-1.0 [facility] Laboratory - Specimen inform ationon 02-04-2024 Appearance (U) CLEAR CLEAR [facility] Color (U) YELLOW YELLOW [facility] Laboratory - Urinalysison Leukocyte esterase Test strip Ql (U) TRACE Abnormal NEGATIVE [facility] Mucus Ql (Urine sed) TRACE Abnormal NONE SEEN [facility] Nitrite Ql (U) Negative NEGATIVE [facility] Protein Ql (U) TRACE mg/dL NEG/TRACE [facility] No Panel Informationon 02-03 Miscellaneous Test Comment See comment [facility] Comment on above: Specimen Source: UCC - Urine,Clean Catch - Urine CC - 200.100 Urine Bacteria TRACE #/HPF Abnormal NONE SEEN [facility] Urine Occult Blood Negative NEGATIVE [facility] Urine Other Casts NONE SEEN #/LPF NONE SEEN [facility] Urine Other Crystals None Seen #/HPF None Seen [facility] Urine RBC 0-2 #/HPF 0-2 [facility] Urine Squamous Epithelial Cells RARE #/LPF NONE/RARE [facility] Urine WBC 2-5 #/HPF Abnormal NONE SEEN [facility] Urine culture routineon 01-12 Bacteria identified Cx Nom (U) [facility] Alanine aminotransferase [En zymatic activity/volume] in Serum or PlasmaOrdered By: Ayanna Vicente on 10-17-2023 ALT [Catalytic activity/Vol] 28 U/L 7-52 [facility] Albumin [Mass/volume] in Ser um or Plasma by Bromocresol green (BCG) dye binding methoOrdered By: Ayanna Vicente on 10-17-2023 Albumin BCG dye [Mass/Vol] 4.1 g/dL 3.5-5.7 [facility] Alkaline phosphatase [Enzyma tic activity/volume] in Serum or PlasmaOrdered By: Ayanna Vicente on 10-17-2023 ALP [Catalytic activity/Vol] 93 U/L 34-104 [facility] Anisocytosis LM Ql (Bld)Orde red By: Ayanna Vicente on 10-17-2023 Anisocytosis Ql (Bld) Slight [facility] Aspartate aminotransferase [ Enzymatic activity/volume] in Serum or PlasmaOrdered By: Ayanna Vicente on 10-17-2023 AST [Catalytic activity/Vol] 30 U/L 13-39 [facility] Automated erythrocytes count in urine sediment (number/area)Ordered By: Ayanna Vicente on 10-17-2023 RBC Auto (Urine sed) [#/Area] 1-2 [HPF] 0-4 [facility] Automated leukocytes count i n urine sediment (number/area)Ordered By: Ayanna Vicente on 10-17-2023 WBC Auto (Urine sed) [#/Area] 10-19 [HPF] High 0-4 [facility] Basophils Auto (Bld) [#/Vol] Ordered By: Ayanna Vicente on 10-17-2023 Basophils (Bld) [#/Vol] N/A F [facility] Basophils/100 WBC Auto (Bld) Ordered By: Ayanna Vicente on 10-17-2023 Basophils/100 WBC (Bld) N/A F [facility] Bilirubin Test strip Ql (U)O rdered By: Ayanna Vicente on 10-17-2023 Bilirubin Ql (U) Negative Negative [facility] Bilirubin.total [Mass/volume ] in Serum or PlasmaOrdered By: Ayanna Vicente on 10-17-2023 Bilirubin [Mass/Vol] 0.4 mg/dL 0.3-1.0 [facility] Calcium [Mass/volume] in Ser um or PlasmaOrdered By: Ayanna Vicente on 10-17-2023 Calcium [Mass/Vol] 9.7 mg/dL 8.6-10.3 [facility] Carbon dioxide, total [Moles /volume] in Serum or PlasmaOrdered By: Ayanna Vicente on 10-17-2023 CO2 [Moles/Vol] 30.9 mmol/L 21.0-31.0 [facility] Chloride [Moles/volume] in S ebony or PlasmaOrdered By: Ayanna Vicente on 04-05-2024 Chloride [Moles/Vol] 105 mmol/L 98-107 [facility] Cholesterol [Mass/volume] in Serum or PlasmaOrdered By: Ayanna Vicente on 10-17-2023 Cholesterol [Mass/Vol] 131 mg/dL Low 140-200 [facility] Comment on above: Chol less than 200 m g/dl low riskChol 201-239 mg/dl borderline riskChol 240 mg/dl and greater high risk Cholesterol in LDL Calc [Mas s/Vol]Ordered By: Ayanna Vicente on 10-17-2023 Cholesterol in LDL [Mass/Vol] 30 mg/dL 0-100 [facility] Comment on above: LDL ATP III CLASSIFI CATIONLDL less than 100 mg/dL OptimalLDL 100-129 mg/dL Near or above optimalLDL 130-159 mg/dL Borderline highLDL 160-189 mg/dL HighLDL greater than 189 mg/dL Very high Cholesterol in VLDL Calc [Ma ss/Vol]Ordered By: Ayanna Vicente on 10-17-2023 Cholesterol in VLDL [Mass/Vol] 60 mg/dL [facility] Color Auto (U)Ordered By: Vasile Vicente on 10-17-2023 Color (U) Yellow Yellow [facility] Creatinine [Mass/volume] in Serum or PlasmaOrdered By: Ayanna Vicente on 10-17-2023 Creatinine [Mass/Vol] 1.15 mg/dL 0.60-1.20 [facility] Eosinophils Auto (Bld) [#/Vo l]Ordered By: Ayanna Vicente on 10-17-2023 Eosinophils (Bld) [#/Vol] N/A [facility] Eosinophils/100 WBC Auto (Bl d)Ordered By: Ayanna Vicente on 10-17-2023 Eosinophils/100 WBC (Bld) N/A [facility] Eosinophils/100 WBC Manual c nt (Bld)Ordered By: Ayanna Vicente on 10-17-2023 Eosinophils/100 WBC (Bld) 2 % 1-3 [facility] Erythrocyte distribution wid th Auto (RBC) [Ratio]Ordered By: Ayanna Vicente on 10-17-2023 Erythrocyte distribution width (RBC) [Ratio] 15.2 % 11.9-15.3 [facility] Globulin Calc (S) [Mass/Vol] Ordered By: Ayanna Vicente on 10-17-2023 Globulin (S) [Mass/Vol] 2.6 g/dL F [facility] Glucose [Mass/volume] in Ser um or PlasmaOrdered By: Ayanna Vicente on 10-17-2023 Glucose [Mass/Vol] 162 mg/dL High 70-100 [facility] Comment on above: ADA recommended [...] from glycated hemoglobin (Bld) [Mass/Vol] 197 mg/dL [facility] Hematocrit Auto (Bld) [Volum e fraction]Ordered By: Ayanna Vicente on 10-17-2023 Hematocrit (Bld) [Volume fraction] 38.8 % 34.0-46.4 [facility] Hemoglobin A1c percentageOrd ered By: Ayanna Vicente on 10-17-2023 HbA1c (Bld) [Mass fraction] 8.5 % High 4.3-5.6 [facility] Comment on above: Increased risk for d iabetes: 5.7 - 6.4diabetes: >6.4glycemic control for adults with diabetes: <7.0 Hemoglobin [Mass/volume] in BloodOrdered By: Ayanna Vicente on 10-17-2023 Hemoglobin (Bld) [Mass/Vol] 12.2 g/dL 11.8-15.4 [facility] Ketones Auto test strip (U) [Mass/Vol]Ordered By: Ayanna Vicente on 10-17-2023 Ketones (U) [Mass/Vol] Negative Negative [facility] Laboratory - UrinalysisOrder ed By: Ayanna Vicente on 10-17-2023 Hyaline casts LM Ql (Urine sed) None seen [LPF] 0-8 [facility] Leukocytes [#/volume] correc andreina for nucleated erythrocytes in Blood by Automated counOrdered By: Ayanna Vicente on 10-17-2023 WBC corrected for nucl RBC Auto (Bld) [#/Vol] 15.9 10*3/uL High 3.8-11.6 [facility] Lymphocytes Auto (Bld) [#/Vo l]Ordered By: Ayanna Vicente on 10-17-2023 Lymphocytes (Bld) [#/Vol] N/A [facility] Lymphocytes/100 WBC Auto (Bl d)Ordered By: Ayanna Vicente on 10-17-2023 Lymphocytes/100 WBC (Bld) N/A [facility] Lymphocytes/100 WBC Manual c nt (Bld)Ordered By: Ayanna Vicente on 10-17-2023 Lymphocytes/100 WBC (Bld) 51 % High 18-42 [facility] MCH Auto (RBC) [Entitic mass ]Ordered By: Ayanna Vicente on 10-17-2023 MCH (RBC) [Entitic mass] 28.0 pg 24.7-34.3 [facility] MCHC Auto (RBC) [Mass/Vol]Or dered By: Ayanna Vicente on 10-17-2023 MCHC (RBC) [Mass/Vol] 31.5 g/dL Low 32.0-35.0 [facility] MCV Auto (RBC) [Entitic vol] Ordered By: Ayanna Vicente on 10-17-2023 MCV (RBC) [Entitic vol] 89.0 fL 80-100 F [facility] Microalbumin [Mass/volume] i n UrineOrdered By: Ayanna Vicente on 10-17-2023 Albumin DL <= 20 mg/L (U) [Mass/Vol] 1.9 mg/dL High 0.0-1.8 [facility] Microcytes LM Ql (Bld)Ordere d By: Ayanna Vicente on 10-17-2023 Microcytes Ql (Bld) Slight [facility] Monocytes Auto (Bld) [#/Vol] Ordered By: Ayanna Vicente on 10-17-2023 Monocytes (Bld) [#/Vol] N/A F [facility] Monocytes/100 WBC Auto (Bld) Ordered By: Ayanna Vicente on 10-17-2023 Monocytes/100 WBC (Bld) N/A F [facility] Monocytes/100 WBC Manual cnt (Bld)Ordered By: Ayanna Vicente on 10-17-2023 Monocytes/100 WBC (Bld) 8 % 2-11 [facility] Myelocytes/100 WBC Manual cn t (Bld)Ordered By: Ayanna Vicente on 10-17-2023 Myelocytes/100 WBC (Bld) 1 % High 0-0 [facility] Neutrophils Auto (Bld) [#/Vo l]Ordered By: Ayanna Vicente on 10-17-2023 Neutrophils (Bld) [#/Vol] N/A [facility] Neutrophils/100 WBC Auto (Bl d)Ordered By: Ayanna Vicente on 10-17-2023 Neutrophils/100 WBC (Bld) N/A [facility] Nitrite Test strip Ql (U)Ord ered By: Ayanna Vicente on 10-17-2023 Nitrite Ql (U) Positive High Negative [facility] No Panel InformationOrdered By: Ayanna Vicente on 10-17-2023 Estimated GFR (CKD-EPI) 47.859 mL/Min [facility] Creatinine Clearance (Chem N/A [facility] Nucleated erythrocytes [Pres ence] in Blood by Automated countOrdered By: Ayanna Vicente on 10-17-2023 Nucleated RBC Auto Ql (Bld) N/A [facility] Platelet adequacy [Presence] in Blood by Light microscopyOrdered By: Ayanna Vicente on 10-17-2023 Platelets LM Ql (Bld) Normal Normal [facility] Platelet mean volume Auto (B ld) [Entitic vol]Ordered By: Ayanna Vicente on 10-17-2023 Platelet mean volume (Bld) [Entitic vol] 9.2 fL 6.3-10.7 [facility] Platelet morphology finding [Identifier] in BloodOrdered By: Ayanna Vicente on 10-17-2023 Platelet morphology finding Nom (Bld) Normal Normal [facility] Platelets Auto (Bld) [#/Vol] Ordered By: Ayanna Vicente on 10-17-2023 Platelets (Bld) [#/Vol] 231 10*3/uL 150-450 [facility] Poikilocytosis [Presence] in Blood by Light microscopyOrdered By: Ayanna Vicente on 10-17-2023 Poikilocytosis LM Ql (Bld) Slight [facility] Potassium [Moles/volume] in Serum or PlasmaOrdered By: Ayanna Vicente on 10-17-2023 Potassium [Moles/Vol] 5.1 mmol/L 3.5-5.1 [facility] Protein Auto test strip (U) [Mass/Vol]Ordered By: Ayanna Vicente on 10-17-2023 Protein (U) [Mass/Vol] Trace mg/dL High Negative F [facility] Protein [Mass/volume] in Ser um or PlasmaOrdered By: Ayanna Vicente on 10-17-2023 Protein [Mass/Vol] 6.7 g/dL 6.4-8.9 [facility] RBC Auto (Bld) [#/Vol]Ordere d By: Ayanna Vicente on 10-17-2023 RBC (Bld) [#/Vol] 4.36 10*6/uL 3.60-5.00 [facility] RBC morphologyOrdered By: Vasile Vicente on 10-17-2023 RBC morphology finding Nom (Bld) N/A [facility] Segmented neutrophils/100 WB C Manual cnt (Bld)Ordered By: Ayanna Vicente on 10-17-2023 Segmented neutrophils/100 WBC (Bld) 33 % Low 50-70 [facility] Serum or plasma albumin/glob ulin mass ratioOrdered By: Ayanna Vicente on 10-17-2023 Albumin/Globulin [Mass ratio] 1.6 {ratio} [facility] Serum or plasma anion gap de terminationOrdered By: Ayanna Vicente on 10-17-2023 Anion gap [Moles/Vol] 8.2 mmol/L 6.0-15.0 [facility] Serum or plasma high density lipoprotein (HDL) cholesterol measurementOrdered By: Ayanna Vicente on 10-17-2023 Cholesterol in HDL [Mass/Vol] 40 mg/dL 23-92 [facility] Comment on above: HDL CHOL ATP-III CLA SSIFICATION Cardiovascular RiskHDL > or equal to 60 mg/dL LOWHDL < 40 mg/dL HIGH Serum or plasma total choles terol/high density lipoprotein (HDL) cholesterol mass ratOrdered By: Ayanna Vicente on 10-17-2023 Cholesterol.total/Choles terol in HDL [Mass ratio] 3.3 {ratio} <5.0 [facility] Sodium [Moles/volume] in Ser um or PlasmaOrdered By: Ayanna Vicente on 10-17-2023 Sodium [Moles/Vol] 139 mmol/L 136-145 [facility] Specific gravity Auto test s trip (U) [Rel density]Ordered By: Ayanna Vicente on 10-17-2023 Specific gravity (U) [Rel density] 1.018 1.001-1.030 [facility] Squamous epithelial cells de tection in urine sediment by light microscopyOrdered By: Ayanna Vicente on 10-17-2023 Epithelial cells.squamous LM Ql (Urine sed) 0-1 [HPF] 0-2 [facility] Thyrotropin [Units/volume] i n Serum or PlasmaOrdered By: Ayanna Vicente on 10-17-2023 TSH Qn 1.46 m[IU]/L 0.45-5.33 [facility] Thyroxine (T4) free [Mass/vo lume] in Serum or PlasmaOrdered By: Ayanna Vicente on 10-17-2023 Free T4 [Mass/Vol] 1.02 ng/dL 0.61-1.12 [facility] Triglyceride [Mass/volume] i n Serum or PlasmaOrdered By: Ayanna Vicente on 10-17-2023 Triglyceride [Mass/Vol] 303 mg/dL High 0-149 [facility] Comment on above: TRIG ATP III CLASSIF ICATIONTRIG less than 150 mg/dL NormalTRIG 150-199 mg/dL Borderline highTRIG 200-500 mg/dL High TRIG greater than 500 mg/dL Very highStandard traceable to the Center for Disease Conrtrol and Prevention (CDC) test method. Triiodothyronine (T3) Free [ Mass/volume] in Serum or PlasmaOrdered By: Ayanna Vicente on 10-17-2023 Free T3 [Mass/Vol] 3.22 pg/mL 2.50-3.90 [facility] Urea nitrogen [Mass/volume] in Serum or PlasmaOrdered By: Ayanna Vicente on 10-17-2023 Urea nitrogen [Mass/Vol] 30 mg/dL High 7-25 [facility] Urine bacteria detection by automated methodOrdered By: Ayanna Vicente on 10-17-2023 Bacteria Auto Ql (U) 4+ High None Seen [facility] Urine clarity by refractomet ry automatedOrdered By: Ayanna Vicente on 10-17-2023 Clarity Refractometry automated (U) Clear Clear [facility] Urine culture routineOrdered By: Ayanna Vicente on 10-17-2023 Bacteria identified Cx Nom (U) Escherichia coli (MDRO) Abnormal [facility] Urine glucose measurement by automated test strip (mass/volume)Ordered By: Ayanna Vicente on 10-17-2023 Glucose Auto test strip (U) [Mass/Vol] Normal mg/dL Normal [facility] Urine hemoglobin detection b y automated test stripOrdered By: Ayanna Vicente on 10-17-2023 Hemoglobin Auto test strip Ql (U) Negative Negative [facility] Urine leukocyte esterase det ection by automated test stripOrdered By: Ayanna Vicente on 10-17-2023 Leukocyte esterase Auto test strip Ql (U) 2+ High Negative [facility] Urobilinogen Auto test strip (U) [Mass/Vol]Ordered By: Ayanna Vicente on 10-17-2023 Urobilinogen (U) [Mass/Vol] Normal mg/dL Normal [facility] Variant lymphocytes/100 WBC Manual cnt (Bld)Ordered By: Ayanna Vicente on 10-17-2023 Variant lymphocytes/100 WBC (Bld) 6 % 0-12 [facility] WBC Auto (Bld) [#/Vol]Ordere d By: Ayanna Vicente on 10-17-2023 WBC (Bld) [#/Vol] 15.9 10*3/uL High 3.8-11.6 [facility] pH Auto test strip (U)Ordere d By: Ayanna Vicente on 10-17-2023 pH (U) 5.5 [pH] 5.0-9.0 [facility] Alanine aminotransferase [En zymatic activity/volume] in Serum or PlasmaOrdered By: Ayanna Vicente on 04-09-2023 ALT [Catalytic activity/Vol] 25 U/L 7-52 [facility] Albumin [Mass/volume] in Ser um or Plasma by Bromocresol green (BCG) dye binding methoOrdered By: Ayanna Vicente on 04-09-2023 Albumin BCG dye [Mass/Vol] 4.2 g/dL 3.5-5.7 [facility] Alkaline phosphatase [Enzyma tic activity/volume] in Serum or PlasmaOrdered By: Ayanna Vicente on 04-09-2023 ALP [Catalytic activity/Vol] 95 U/L 34-104 [facility] Anisocytosis LM Ql (Bld)Orde red By: Ayanan Vicente on 04-09-2023 Anisocytosis Ql (Bld) Slight [facility] Aspartate aminotransferase [ Enzymatic activity/volume] in Serum or PlasmaOrdered By: Ayanna Vicente on 04-09-2023 AST [Catalytic activity/Vol] 21 U/L 13-39 [facility] Basophils Auto (Bld) [#/Vol] Ordered By: Ayanna Vicente on 04-09-2023 Basophils (Bld) [#/Vol] N/A F [facility] Basophils/100 WBC Auto (Bld) Ordered By: Ayanna Vicente on 04-09-2023 Basophils/100 WBC (Bld) N/A F [facility] Bilirubin.total [Mass/volume ] in Serum or PlasmaOrdered By: Ayanna Vicente on 04-09-2023 Bilirubin [Mass/Vol] 0.4 mg/dL 0.3-1.0 [facility] Calcium [Mass/volume] in Ser um or PlasmaOrdered By: Ayanna Vicente on 04-09-2023 Calcium [Mass/Vol] 9.9 mg/dL 8.6-10.3 [facility] Carbon dioxide, total [Moles /volume] in Serum or PlasmaOrdered By: Ayanna Vicente on 04-09-2023 CO2 [Moles/Vol] 31.5 mmol/L 21.0-31.0 [facility] Chloride [Moles/volume] in S ebony or PlasmaOrdered By: Ayanna Vicente on 04-09-2023 Chloride [Moles/Vol] 103 mmol/L 98-107 [facility] Cholesterol [Mass/volume] in Serum or PlasmaOrdered By: Ayanna Vicente on 04-09-2023 Cholesterol [Mass/Vol] 139 mg/dL 140-200 [facility] Comment on above: Chol less than 200 m g/dl low riskChol 201-239 mg/dl borderline riskChol 240 mg/dl and greater high risk Cholesterol in LDL Calc [Mas s/Vol]Ordered By: Ayanna Vicente on 04-09-2023 Cholesterol in LDL [Mass/Vol] 27 mg/dL 0-100 [facility] Comment on above: LDL ATP III CLASSIFI CATIONLDL less than 100 mg/dL OptimalLDL 100-129 mg/dL Near or above optimalLDL 130-159 mg/dL Borderline highLDL 160-189 mg/dL HighLDL greater than 189 mg/dL Very high Cholesterol in VLDL Calc [Ma ss/Vol]Ordered By: Ayanna Vicente on 04-09-2023 Cholesterol in VLDL [Mass/Vol] 69 mg/dL [facility] Creatinine [Mass/volume] in Serum or PlasmaOrdered By: Ayanna Vicente on 04-09-2023 Creatinine [Mass/Vol] 1.06 mg/dL 0.60-1.20 [facility] Eosinophils Auto (Bld) [#/Vo l]Ordered By: Ayanna Vicente on 04-09-2023 Eosinophils (Bld) [#/Vol] N/A [facility] Eosinophils/100 WBC Auto (Bl d)Ordered By: Ayanna Vicente on 04-09-2023 Eosinophils/100 WBC (Bld) N/A [facility] Eosinophils/100 WBC Manual c nt (Bld)Ordered By: Ayanna Vicente on 04-09-2023 Eosinophils/100 WBC (Bld) 5 % 1-3 [facility] Erythrocyte distribution wid th Auto (RBC) [Ratio]Ordered By: Ayanna Vicente on 04-09-2023 Erythrocyte distribution width (RBC) [Ratio] 15.1 % 11.9-15.3 [facility] Globulin Calc (S) [Mass/Vol] Ordered By: Ayanna Vicente on 04-09-2023 Globulin (S) [Mass/Vol] 2.4 g/dL [facility] Glucose [Mass/volume] in Ser um or PlasmaOrdered By: Ayanna Vicente on 04-09-2023 Glucose [Mass/Vol] 154 mg/dL 70-100 [facility] Comment on above: ADA recommended [...] from glycated hemoglobin (Bld) [Mass/Vol] 200 mg/dL [facility] Hematocrit Auto (Bld) [Volum e fraction]Ordered By: Ayanna Vicente on 04-09-2023 Hematocrit (Bld) [Volume fraction] 37.2 % 34.0-46.4 [facility] Hemoglobin A1c percentageOrd ered By: Ayanna Vicente on 04-09-2023 HbA1c (Bld) [Mass fraction] 8.6 % 4.3-5.6 [facility] Comment on above: Increased risk for d iabetes: 5.7 - 6.4diabetes: >6.4glycemic control for adults with diabetes: <7.0 Hemoglobin [Mass/volume] in BloodOrdered By: Ayanna Vicente on 04-09-2023 Hemoglobin (Bld) [Mass/Vol] 12.2 g/dL 11.8-15.4 [facility] Leukocytes [#/volume] correc andreina for nucleated erythrocytes in Blood by Automated counOrdered By: Ayanna Vicente on 04-09-2023 WBC corrected for nucl RBC Auto (Bld) [#/Vol] 15.3 10*3/uL 3.8-11.6 [facility] Lymphocytes Auto (Bld) [#/Vo l]Ordered By: Ayanna Vicente on 04-09-2023 Lymphocytes (Bld) [#/Vol] N/A [facility] Lymphocytes/100 WBC Auto (Bl d)Ordered By: Ayanna Vicente on 04-09-2023 Lymphocytes/100 WBC (Bld) N/A [facility] Lymphocytes/100 WBC Manual c nt (Bld)Ordered By: Ayanna Vicente on 04-09-2023 Lymphocytes/100 WBC (Bld) 59 % 18-42 [facility] MCH Auto (RBC) [Entitic mass ]Ordered By: Ayanna Vicente on 04-09-2023 MCH (RBC) [Entitic mass] 29.1 pg 24.7-34.3 [facility] MCHC Auto (RBC) [Mass/Vol]Or dered By: Ayanna Vicente on 04-09-2023 MCHC (RBC) [Mass/Vol] 32.9 g/dL 32.0-35.0 [facility] MCV Auto (RBC) [Entitic vol] Ordered By: Ayanna Vicente on 04-09-2023 MCV (RBC) [Entitic vol] 88.5 fL 80-100 [facility] Monocytes Auto (Bld) [#/Vol] Ordered By: Ayanna Vicente on 04-09-2023 Monocytes (Bld) [#/Vol] N/A [facility] Monocytes/100 WBC Auto (Bld) Ordered By: Ayanna Vicente on 04-09-2023 Monocytes/100 WBC (Bld) N/A [facility] Monocytes/100 WBC Manual cnt (Bld)Ordered By: Ayanna Vicente on 04-09-2023 Monocytes/100 WBC (Bld) 7 % 2-11 [facility] Myelocytes/100 WBC Manual cn t (Bld)Ordered By: Ayanna Vicente on 04-09-2023 Myelocytes/100 WBC (Bld) 1 % 0-0 [facility] Neutrophils Auto (Bld) [#/Vo l]Ordered By: Ayanna Vicente on 04-09-2023 Neutrophils (Bld) [#/Vol] N/A [facility] Neutrophils/100 WBC Auto (Bl d)Ordered By: Ayanna Vicente on 04-09-2023 Neutrophils/100 WBC (Bld) N/A [facility] No Panel InformationOrdered By: Ayanna Vicente on 04-09-2023 Estimated GFR (CKD-EPI) 53.106 mL/Min [facility] Creatinine Clearance (Chem N/A [facility] Nucleated erythrocytes [Pres ence] in Blood by Automated countOrdered By: Ayanna Vicente on 04-09-2023 Nucleated RBC Auto Ql (Bld) N/A [facility] Ovalocyte detectionOrdered B y: Ayanna Vicente on 04-09-2023 Ovalocytes LM Ql (Bld) [facility] Platelet adequacy [Presence] in Blood by Light microscopyOrdered By: Ayanna Vicente on 04-09-2023 Platelets LM Ql (Bld) Normal Normal [facility] Platelet mean volume Auto (B ld) [Entitic vol]Ordered By: Ayanna Vicente on 04-09-2023 Platelet mean volume (Bld) [Entitic vol] 9.5 fL 6.3-10.7 [facility] Platelet morphology finding [Identifier] in BloodOrdered By: Ayanna Vicente on 04-09-2023 Platelet morphology finding Nom (Bld) Normal Normal [facility] Platelets Auto (Bld) [#/Vol] Ordered By: Ayanna Vicente on 04-09-2023 Platelets (Bld) [#/Vol] 211 10*3/uL 150-450 [facility] Potassium [Moles/volume] in Serum or PlasmaOrdered By: Ayanna Vicente on 04-09-2023 Potassium [Moles/Vol] 5.0 mmol/L 3.5-5.1 [facility] Protein [Mass/volume] in Ser um or PlasmaOrdered By: Ayanna Vicente on 04-09-2023 Protein [Mass/Vol] 6.6 g/dL 6.4-8.9 [facility] RBC Auto (Bld) [#/Vol]Ordere d By: Ayanna Vicente on 04-09-2023 RBC (Bld) [#/Vol] 4.20 10*6/uL 3.60-5.00 [facility] RBC morphologyOrdered By: Vasile Vicente on 04-09-2023 RBC morphology finding Nom (Bld) N/A [facility] Segmented neutrophils/100 WB C Manual cnt (Bld)Ordered By: Ayanna Vicente on 04-09-2023 Segmented neutrophils/100 WBC (Bld) 27 % 50-70 [facility] Serum or plasma albumin/glob ulin mass ratioOrdered By: Ayanna Vicente on 04-09-2023 Albumin/Globulin [Mass ratio] 1.8 {ratio} [facility] Serum or plasma anion gap de terminationOrdered By: Ayanna Vicente on 04-09-2023 Anion gap [Moles/Vol] 10.5 mmol/L 6.0-15.0 [facility] Serum or plasma high density lipoprotein (HDL) cholesterol measurementOrdered By: Ayanna Vicente on 04-09-2023 Cholesterol in HDL [Mass/Vol] 42 mg/dL 23-92 [facility] Comment on above: HDL CHOL ATP-III CLA SSIFICATION Cardiovascular RiskHDL > or equal to 60 mg/dL LOWHDL < 40 mg/dL HIGH Serum or plasma total choles terol/high density lipoprotein (HDL) cholesterol mass ratOrdered By: Ayanna Vicente on 04-09-2023 Cholesterol.total/Choles terol in HDL [Mass ratio] 3.3 {ratio} <5.0 [facility] Sodium [Moles/volume] in Ser um or PlasmaOrdered By: Ayanna Vicente on 04-09-2023 Sodium [Moles/Vol] 140 mmol/L 136-145 [facility] Thyrotropin [Units/volume] i n Serum or PlasmaOrdered By: Ayanna Vicente on 04-09-2023 TSH Qn 1.62 m[IU]/L 0.45-5.33 [facility] Thyroxine (T4) free [Mass/vo lume] in Serum or PlasmaOrdered By: Ayanna Vicente on 04-09-2023 Free T4 [Mass/Vol] 0.78 ng/dL 0.61-1.12 [facility] Triglyceride [Mass/volume] i n Serum or PlasmaOrdered By: Ayanna Vicente on 04-09-2023 Triglyceride [Mass/Vol] 349 mg/dL 0-149 [facility] Comment on above: TRIG ATP III CLASSIF ICATIONTRIG less than 150 mg/dL NormalTRIG 150-199 mg/dL Borderline highTRIG 200-500 mg/dL High TRIG greater than 500 mg/dL Very highStandard traceable to the Center for Disease Conrtrol and Prevention (CDC) test method. Triiodothyronine (T3) Free [ Mass/volume] in Serum or PlasmaOrdered By: Ayanna Vicente on 04-09-2023 Free T3 [Mass/Vol] 2.71 pg/mL 2.50-3.90 [facility] Urea nitrogen [Mass/volume] in Serum or PlasmaOrdered By: Ayanna Vicente on 04-09-2023 Urea nitrogen [Mass/Vol] 28 mg/dL 7- [facility] Variant lymphocytes/100 WBC Manual cnt (Bld)Ordered By: Ayanna Vicente on 04-09-2023 Variant lymphocytes/100 WBC (Bld) 1 % 0-12 [facility] WBC Auto (Bld) [#/Vol]Ordere d By: Ayanna Vicente on 04-09-2023 WBC (Bld) [#/Vol] 15.3 10*3/uL 3.8-11.6 [facility] Alanine aminotransferase [En zymatic activity/volume] in Serum or PlasmaOrdered By: Ayanna Vicente on 09-30-2022 ALT [Catalytic activity/Vol] 25 U/L 7-52 [facility] Albumin [Mass/volume] in Ser um or Plasma by Bromocresol green (BCG) dye binding methoOrdered By: Ayanna Vicente on 09-30-2022 Albumin BCG dye [Mass/Vol] 4.3 g/dL 3.5-5.7 [facility] Alkaline phosphatase [Enzyma tic activity/volume] in Serum or PlasmaOrdered By: Ayanna Vicente on 09-30-2022 ALP [Catalytic activity/Vol] 97 U/L 34-104 [facility] Anisocytosis LM Ql (Bld)Orde red By: Ayanna Vicente on 09-30-2022 Anisocytosis Ql (Bld) Slight [facility] Aspartate aminotransferase [ Enzymatic activity/volume] in Serum or PlasmaOrdered By: Ayanna Vicente on 09-30-2022 AST [Catalytic activity/Vol] 22 U/L 13-39 [facility] Basophils Auto (Bld) [#/Vol] Ordered By: Ayanna Vicente on 09-30-2022 Basophils (Bld) [#/Vol] 0.0 10*3/uL 0.0-0.2 [facility] Basophils/100 WBC Auto (Bld) Ordered By: Ayanna Vicente on 09-30-2022 Basophils/100 WBC (Bld) 0.3 % . [facility] Bilirubin.total [Mass/volume ] in Serum or PlasmaOrdered By: Ayanna Vicente on 09-30-2022 Bilirubin [Mass/Vol] 0.3 mg/dL 0.3-1.0 [facility] Calcium [Mass/volume] in Ser um or PlasmaOrdered By: Ayanna Vicente on 09-30-2022 Calcium [Mass/Vol] 9.3 mg/dL 8.6-10.3 [facility] Carbon dioxide, total [Moles /volume] in Serum or PlasmaOrdered By: Ayanna Vicente on 09-30-2022 CO2 [Moles/Vol] 30.4 mmol/L 21.0-31.0 [facility] Chloride [Moles/volume] in S ebony or PlasmaOrdered By: Ayanna Vicente on 09-30-2022 Chloride [Moles/Vol] 104 mmol/L 98-107 [facility] Cholesterol [Mass/volume] in Serum or PlasmaOrdered By: Ayanna Vicente on 09-30-2022 Cholesterol [Mass/Vol] 117 mg/dL 140-200 [facility] Comment on above: Chol less than 200 m g/dl low riskChol 201-239 mg/dl borderline riskChol 240 mg/dl and greater high risk Cholesterol in LDL Calc [Mas s/Vol]Ordered By: Ayanna Vicente on 09-30-2022 Cholesterol in LDL [Mass/Vol] 35 mg/dL 0-100 [facility] Comment on above: LDL ATP III CLASSIFI CATIONLDL less than 100 mg/dL OptimalLDL 100-129 mg/dL Near or above optimalLDL 130-159 mg/dL Borderline highLDL 160-189 mg/dL HighLDL greater than 189 mg/dL Very high Cholesterol in VLDL Calc [Ma ss/Vol]Ordered By: Ayanna Vicente on 09-30-2022 Cholesterol in VLDL [Mass/Vol] 43 mg/dL [facility] Creatinine [Mass/volume] in Serum or PlasmaOrdered By: Ayanna Vicente on 09-30-2022 Creatinine [Mass/Vol] 1.25 mg/dL 0.60-1.20 [facility] Eosinophils Auto (Bld) [#/Vo l]Ordered By: Ayanna Vicente on 09-30-2022 Eosinophils (Bld) [#/Vol] 0.3 10*3/uL 0.0-0.45 [facility] Eosinophils/100 WBC Auto (Bl d)Ordered By: Ayanna Vicente on 09-30-2022 Eosinophils/100 WBC (Bld) 2.3 % . [facility] Erythrocyte distribution wid th Auto (RBC) [Ratio]Ordered By: Ayanna Vicente on 09-30-2022 Erythrocyte distribution width (RBC) [Ratio] 15.4 % 11.9-15.3 [facility] Globulin Calc (S) [Mass/Vol] Ordered By: Ayanna Vicente on 09-30-2022 Globulin (S) [Mass/Vol] 2.4 g/dL [facility] Glucose [Mass/volume] in Ser um or PlasmaOrdered By: Ayanna Vicente on 09-30-2022 Glucose [Mass/Vol] 135 mg/dL 74-109 [facility] Comment on above: ADA recommended [...] from glycated hemoglobin (Bld) [Mass/Vol] 203 mg/dL [facility] Hematocrit Auto (Bld) [Volum e fraction]Ordered By: Ayanna Vicente on 09-30-2022 Hematocrit (Bld) [Volume fraction] 37.0 % 34.0-46.4 [facility] Hemoglobin A1c percentageOrd ered By: Ayanna Vicente on 09-30-2022 HbA1c (Bld) [Mass fraction] 8.7 % 4.3-5.6 [facility] Comment on above: Increased risk for d iabetes: 5.7 - 6.4diabetes: >6.4glycemic control for adults with diabetes: <7.0 Hemoglobin [Mass/volume] in BloodOrdered By: Ayanna Vicente on 09-30-2022 Hemoglobin (Bld) [Mass/Vol] 12.1 g/dL 11.8-15.4 [facility] Laboratory - Chemistry and C hemistry - challengeOrdered By: Ayanna Vicente on 09-30-2022 GFR/1.73 sq M.predicted MDRD (S/P/Bld) [Vol rate/Area] 43.572 mL/min/{1.73_m2} [facility] Leukocytes [#/volume] correc andreina for nucleated erythrocytes in Blood by Automated counOrdered By: Ayanna Vicente on 09-30-2022 WBC corrected for nucl RBC Auto (Bld) [#/Vol] 15.2 10*3/uL 3.8-11.6 [facility] Lymphocytes Auto (Bld) [#/Vo l]Ordered By: Ayanna Vicente on 09-30-2022 Lymphocytes (Bld) [#/Vol] 10.5 10*3/uL 1.00-4.8 [facility] Lymphocytes/100 WBC Auto (Bl d)Ordered By: Ayanna Vicente on 09-30-2022 Lymphocytes/100 WBC (Bld) 69.4 % . [facility] MCH Auto (RBC) [Entitic mass ]Ordered By: Ayanna Vicente on 09-30-2022 MCH (RBC) [Entitic mass] 28.4 pg 24.7-34.3 [facility] MCHC Auto (RBC) [Mass/Vol]Or dered By: Ayanna Vicente on 09-30-2022 MCHC (RBC) [Mass/Vol] 32.7 g/dL 32.0-35.0 [facility] MCV Auto (RBC) [Entitic vol] Ordered By: Ayanna Vicente on 09-30-2022 MCV (RBC) [Entitic vol] 86.9 fL 80-100 [facility] Microalbumin [Mass/volume] i n UrineOrdered By: Ayanna Vicente on 09-30-2022 Albumin DL <= 20 mg/L (U) [Mass/Vol] 1.9 mg/dL 0.0-1.8 [facility] Monocytes Auto (Bld) [#/Vol] Ordered By: Ayanna Vicente on 09-30-2022 Monocytes (Bld) [#/Vol] 0.7 10*3/uL 0.0-0.8 [facility] Monocytes/100 WBC Auto (Bld) Ordered By: Ayanna Vicente on 09-30-2022 Monocytes/100 WBC (Bld) 4.5 % . [facility] Neutrophils Auto (Bld) [#/Vo l]Ordered By: Ayanna Vicente on 09-30-2022 Neutrophils (Bld) [#/Vol] 3.6 10*3/uL 1.8-7.7 [facility] Neutrophils/100 WBC Auto (Bl d)Ordered By: Ayanna Vicente on 09-30-2022 Neutrophils/100 WBC (Bld) 23.5 % . [facility] No Panel InformationOrdered By: Ayanna Vicente on 09-30-2022 Pharmacy Creatinine Clearance (Chem N/A [facility] Nucleated erythrocytes [Pres ence] in Blood by Automated countOrdered By: Ayanna Vicente on 09-30-2022 Nucleated RBC Auto Ql (Bld) 0.6 /100{WBC} 0-0.5 [facility] Ovalocyte detectionOrdered B y: Ayanna Vicente on 09-30-2022 Ovalocytes LM Ql (Bld) [facility] Platelet adequacy [Presence] in Blood by Light microscopyOrdered By: Ayanna Vicente on 09-30-2022 Platelets LM Ql (Bld) Normal Normal [facility] Platelet mean volume Auto (B ld) [Entitic vol]Ordered By: Ayanna Vicente on 09-30-2022 Platelet mean volume (Bld) [Entitic vol] 8.9 fL 6.3-10.7 [facility] Platelet morphology finding [Identifier] in BloodOrdered By: Ayanna Vicente on 09-30-2022 Platelet morphology finding Nom (Bld) Normal Normal [facility] Platelets Auto (Bld) [#/Vol] Ordered By: Ayanna Vicente on 09-30-2022 Platelets (Bld) [#/Vol] 230 10*3/uL 150-450 [facility] Poikilocytosis [Presence] in Blood by Light microscopyOrdered By: Ayanna Vicente on 09-30-2022 Poikilocytosis LM Ql (Bld) Slight [facility] Potassium [Moles/volume] in Serum or PlasmaOrdered By: Ayanna Vicente on 09-30-2022 Potassium [Moles/Vol] 4.5 mmol/L 3.5-5.1 [facility] Protein [Mass/volume] in Ser um or PlasmaOrdered By: Ayanna Vicente on 09-30-2022 Protein [Mass/Vol] 6.7 g/dL 6.4-8.9 [facility] RBC Auto (Bld) [#/Vol]Ordere d By: Ayanna Vicente on 09-30-2022 RBC (Bld) [#/Vol] 4.26 10*6/uL 3.60-5.00 [facility] RBC morphologyOrdered By: Vasile Vicente on 09-30-2022 RBC morphology finding Nom (Bld) N/A [facility] Serum or plasma albumin/glob ulin mass ratioOrdered By: Ayanna Vicente on 09-30-2022 Albumin/Globulin [Mass ratio] 1.8 {ratio} [facility] Serum or plasma anion gap de terminationOrdered By: Ayanna Vicente on 09-30-2022 Anion gap [Moles/Vol] 12.1 mmol/L 6.0-15.0 [facility] Serum or plasma high density lipoprotein (HDL) cholesterol measurementOrdered By: Ayanna Vicente on 09-30-2022 Cholesterol in HDL [Mass/Vol] 39 mg/dL 35-85 [facility] Comment on above: HDL CHOL ATP-III CLA SSIFICATION Cardiovascular RiskHDL > or equal to 60 mg/dL LOWHDL < 40 mg/dL HIGH Serum or plasma total choles terol/high density lipoprotein (HDL) cholesterol mass ratOrdered By: Ayanna Vicente on 09-30-2022 Cholesterol.total/Choles terol in HDL [Mass ratio] 3.0 {ratio} <5.0 [facility] Sodium [Moles/volume] in Ser um or PlasmaOrdered By: Ayanna Vicente on 09-30-2022 Sodium [Moles/Vol] 142 mmol/L 136-145 [facility] Thyrotropin [Units/volume] i n Serum or PlasmaOrdered By: Ayanna Vicente on 09-30-2022 TSH Qn 2.04 m[IU]/L 0.45-5.33 [facility] Thyroxine (T4) free [Mass/vo lume] in Serum or PlasmaOrdered By: Ayanna Vicente on 09-30-2022 Free T4 [Mass/Vol] 0.86 ng/dL 0.61-1.12 [facility] Triglyceride [Mass/volume] i n Serum or PlasmaOrdered By: Ayanna Vicente on 09-30-2022 Triglyceride [Mass/Vol] 216 mg/dL 0-149 [facility] Comment on above: TRIG ATP III CLASSIF ICATIONTRIG less than 150 mg/dL NormalTRIG 150-199 mg/dL Borderline highTRIG 200-500 mg/dL High TRIG greater than 500 mg/dL Very highStandard traceable to the [place] for Disease Conrtrol and Prevention (CDC) test method. Triiodothyronine (T3) Free [ Mass/volume] in Serum or PlasmaOrdered By: Ayanna Vicente on 09-30-2022 Free T3 [Mass/Vol] 3.13 pg/mL 2.50-3.90 [facility] Urea nitrogen [Mass/volume] in Serum or PlasmaOrdered By: Ayanna Vicente on 09-30-2022 Urea nitrogen [Mass/Vol] 33 mg/dL 7-25 [facility] WBC Auto (Bld) [#/Vol]Ordere d By: Ayanna Vicente on 09-30-2022 WBC (Bld) [#/Vol] 15.2 10*3/uL 3.8-11.6 [facility] No Panel InformationOrdered By: Ayanna Vicente on 04-23-2022 25-Hydroxy Vitamin D Total 49.9 ng/mL 30-100 [facility] Comment on above: VITAMIN D STATUS 25( [place])VITAMIN D RANGE (ng/mL) Deficient <20 Insufficient 20 to <30Sufficient 30 to 100Reference: Nile MF,Joon NC, Chon ROD, et al. Evaluation,treatment, and prevention of vitamin D deficiency; an Endocrine Society clinical practice guideline. JCEM. 2010; 96(7):1911-30. LD LACTATE DEHYDROon 022 LDH [Catalytic activity/Vol] 202 U/L 135 - 214 U/L [facility] Albumin [Mass/volume] in Ser um or PlasmaOrdered By: Ayanna Vicente on 04-01-2022 Albumin [Mass/Vol] 3.5 g/dL 3.2-5.5 [facility] Basophils Auto (Bld) [#/Vol] Ordered By: Ayanna Vicente on 04-01-2022 Basophils (Bld) [#/Vol] N/A [facility] Basophils/100 WBC Auto (Bld) Ordered By: Ayanna Vicente on 04-01-2022 Basophils/100 WBC (Bld) N/A [facility] Blood anisocytosis detection Ordered By: Ayanna Vicente on 04-01-2022 Anisocytosis Ql (Bld) Slight [facility] Blood hemoglobin measurement (mass/volume)Ordered By: Ayanna Vicente on 04-01-2022 Hemoglobin (Bld) [Mass/Vol] 12.3 g/dL 11.8-15.4 [facility] Blood leukocytes automated c ount (number/volume)Ordered By: Ayanna Vicente on 04-01-2022 WBC (Bld) [#/Vol] 12.0 10*3/uL 4.5-11.0 [facility] Cerebrospinal fluid unidenti fied cells/100 leukocytesOrdered By: Ayanna Vicente on 04-01-2022 Unidentified cells/100 WBC (CSF) 2 % 0-0 [facility] Comment on above: PRO LYMPHOCYTE Cholesterol [Mass/volume] in Serum or PlasmaOrdered By: Ayanna Vicente on 04-01-2022 Cholesterol [Mass/Vol] 102 mg/dL 140-200 [facility] Comment on above: Chol less than 200 m g/dl low risk Chol 201-239 mg/dl borderline risk Chol 240 mg/dl and greater high risk Chol less than 200 m g/dl low riskChol 201-239 mg/dl borderline riskChol 240 mg/dl and greater high risk Cholesterol in LDL Calc [Mas s/Vol]Ordered By: Ayanna Vicente on 04-01-2022 Cholesterol in LDL [Mass/Vol] 27 mg/dL 0-100 [facility] Comment on above: LDL ATP III CLASSIFI [...] 04-01-2022 Cholesterol in VLDL [Mass/Vol] 25 mg/dL [facility] Creatinine and Glomerular fi ltration rate.predicted panel (S/P/Bld)Ordered By: Ayanna Vicente on 04-01-2022 Creatinine [Mass/Vol] 0.84 mg/dL 0.44-1.03 [facility] Eosinophils Auto (Bld) [#/Vo l]Ordered By: Ayanna Vicente on 04-01-2022 Eosinophils (Bld) [#/Vol] N/A [facility] Eosinophils/100 WBC Auto (Bl d)Ordered By: Ayanna Vicente on 04-01-2022 Eosinophils/100 WBC (Bld) N/A [facility] Erythrocyte distribution wid th Auto (RBC) [Ratio]Ordered By: Ayanna Vicente on 04-01-2022 Erythrocyte distribution width (RBC) [Ratio] 17.0 % 11.9-15.3 [facility] Estimated glomerular filtrat ion rate (GFR) non- AmericanOrdered By: Ayanna Vicente on 04-01-2022 GFR/1.73 sq M.predicted among non-blacks MDRD (S/P/Bld) [Vol rate/Area] > 60 mL/Min [facility] Globulin Calc (S) [Mass/Vol] Ordered By: Ayanna Vicente on 04-01-2022 Globulin (S) [Mass/Vol] 2.9 g/dL [facility] Glucose mean value [Mass/vol ume] in Blood Estimated from glycated hemoglobinOrdered By: Ayanna Vicente on 04-01-2022 Average glucose Estimated from glycated hemoglobin (Bld) [Mass/Vol] 255 mg/dL [facility] Hematocrit Auto (Bld) [Volum e fraction]Ordered By: Ayanna Vicente on 04-01-2022 Hematocrit (Bld) [Volume fraction] 37.9 % 34.0-46.4 [facility] Hemoglobin A1c percentageOrd ered By: Ayanna Vicente on 04-01-2022 HbA1c (Bld) [Mass fraction] 10.5 % 4.3-5.6 [facility] Comment on above: Increased risk for d iabetes: 5.7 - 6.4 diabetes: >6.4 glycemic control for adults with diabetes: <7.0 Increased risk for d iabetes: 5.7 - 6.4diabetes: >6.4glycemic control for adults with diabetes: <7.0 Laboratory - Hematology and Cell countsOrdered By: Ayanna Vicente on 04-01-2022 Nucleated RBC/100 WBC (Bld) [Ratio] 0.2 % 0-0.5 [facility] Lymphocytes Auto (Bld) [#/Vo l]Ordered By: Ayanna Vicente on 04-01-2022 Lymphocytes (Bld) [#/Vol] N/A [facility] Lymphocytes/100 WBC Auto (Bl d)Ordered By: Ayanna Vicente on 04-01-2022 Lymphocytes/100 WBC (Bld) N/A [facility] Lymphocytes/100 WBC (Bld) 60 % 18-42 [facility] Lymphocytes/100 WBC Manual c nt (Bld)Ordered By: Ayanna Vicente on 04-01-2022 Lymphocytes/100 WBC (Bld) 3 % 0-12 [facility] MCH Auto (RBC) [Entitic mass ]Ordered By: Ayanna Vicente on 04-01-2022 MCH (RBC) [Entitic mass] 28.3 pg 24.7-34.3 [facility] MCHC Auto (RBC) [Mass/Vol]Or dered By: Ayanna Vicente on 04-01-2022 MCHC (RBC) [Mass/Vol] 32.4 g/dL 32.0-35.0 [facility] MCV Auto (RBC) [Entitic vol] Ordered By: Ayanna Vicente on 04-01-2022 MCV (RBC) [Entitic vol] 87.6 fL 80-100 [facility] Manual blood monocytes/100 l eukocytesOrdered By: Ayanna Vicente on 04-01-2022 Monocytes/100 WBC (Bld) 3 % 1-3 [facility] Monocytes Auto (Bld) [#/Vol] Ordered By: Ayanna Vicente on 04-01-2022 Monocytes (Bld) [#/Vol] N/A [facility] Monocytes/100 WBC Auto (Bld) Ordered By: Ayanna Vicente on 04-01-2022 Monocytes/100 WBC (Bld) N/A [facility] Neutrophils Auto (Bld) [#/Vo l]Ordered By: Ayanna Vicente on 04-01-2022 Neutrophils (Bld) [#/Vol] N/A [facility] Neutrophils/100 WBC Auto (Bl d)Ordered By: Ayanna Vicente on 04-01-2022 Neutrophils/100 WBC (Bld) N/A [facility] No Panel InformationOrdered By: Ayanna Vicente on 04-01-2022 Estimated GFR () > 60 mL/Min [facility] Comment on above: GFR estimated refere nce range: According to KDOQI guidelines, <60 ml/min/1.73m2 is sufficient to diagnose a patient with chronic kidney disease. Pharmacy Creatinine Clearance (Chem N/A [facility] Platelet Estimate Normal Normal [facility] Platelet Morphology Comment Normal Normal [facility] Smudge Cells Few [facility] Platelet mean volume Auto (B ld) [Entitic vol]Ordered By: Ayanna Vicente on 04-01-2022 Platelet mean volume (Bld) [Entitic vol] 9.3 fL 6.3-10.7 [facility] Platelets Auto (Bld) [#/Vol] Ordered By: Ayanna Vicente on 04-01-2022 Platelets (Bld) [#/Vol] 224 10*3/uL 150-450 [facility] Protein [Mass/volume] in Ser um or PlasmaOrdered By: Ayanna Vicente on 04-01-2022 Protein [Mass/Vol] 6.4 g/dL 6.1-7.9 [facility] RBC Auto (Bld) [#/Vol]Ordere d By: Ayanna Vicente on 04-01-2022 RBC (Bld) [#/Vol] 4.33 10*6/uL 3.60-5.00 [facility] RBC morphologyOrdered By: Vasile Vicente on 04-01-2022 RBC morphology finding Nom (Bld) N/A [facility] Segmented neutrophils/100 WB C Manual cnt (Bld)Ordered By: Ayanna Vicente on 04-01-2022 Segmented neutrophils/100 WBC (Bld) 29 % 50-70 [facility] Serum or plasma alanine roman otransferase measurement without P-5'-P (enzymatic activiOrdered By: Ayanna Vicente on 04-01-2022 ALT No additional P-5'-P [Catalytic activity/Vol] 24 U/L 10-60 [facility] Serum or plasma albumin/glob ulin mass ratioOrdered By: Ayanna Vicente on 04-01-2022 Albumin/Globulin [Mass ratio] 1.2 {ratio} [facility] Serum or plasma alkaline mayelin sphatase measurement (enzymatic activity/volume)Ordered By: Ayanna Vicente on 04-01-2022 ALP [Catalytic activity/Vol] 75 U/L 32-92 [facility] Serum or plasma anion gap de terminationOrdered By: Ayanna Vicente on 04-01-2022 Anion gap [Moles/Vol] 15.8 mmol/L 6.0-15.0 [facility] Serum or plasma aspartate am inotransferase measurement (enzymatic activity/volume)Ordered By: Ayanna Vicente on 04-01-2022 AST [Catalytic activity/Vol] 26 U/L 10-42 [facility] Serum or plasma calcium massimo urement (mass/volume)Ordered By: Ayanna Vicente on 04-01-2022 Calcium [Mass/Vol] 9.3 mg/dL 8.2-10.2 [facility] Serum or plasma chloride chris surement (moles/volume)Ordered By: Ayanna Vicente on 04-01-2022 Chloride [Moles/Vol] 103 mmol/L 95-114 [facility] Serum or plasma glucose massimo urement (mass/volume)Ordered By: Ayanna Vicente on 04-01-2022 Glucose [Mass/Vol] 163 mg/dL 70-100 [facility] Comment on above: ADA recommended [...] Cholesterol in HDL [Mass/Vol] 50 mg/dL 35-85 [facility] Comment on above: HDL CHOL ATP-III CLA [...] on 04-01-2022 Sodium [Moles/Vol] 141 mmol/L 136-146 [facility] Serum or plasma total biliru bin measurement (mass/volume)Ordered By: Ayanna Vicente on 04-01-2022 Bilirubin [Mass/Vol] 0.3 mg/dL 0.3-1.2 [facility] Serum or plasma total carbon dioxide measurement (moles/volume)Ordered By: Ayanna Vicente on 04-01-2022 CO2 [Moles/Vol] 26.6 mmol/L 22.0-30.0 [facility] Serum or plasma total choles terol/high density lipoprotein (HDL) cholesterol mass ratOrdered By: Ayanna Vicente on 04-01-2022 Cholesterol.total/Choles terol in HDL [Mass ratio] 2.0 {ratio} <5.0 [facility] Serum or plasma urea nitroge n measurement (mass/volume)Ordered By: Ayanna Vicente on 04-01-2022 Urea nitrogen [Mass/Vol] 12 mg/dL 9-23 [facility] TSH DL <= 0.005 mIU/L QnOrde red By: Ayanna Vicente on 04-01-2022 TSH Qn 1.11 m[IU]/L 0.45-5.33 [facility] Thyroxine (T4) free [Mass/vo lume] in Serum or PlasmaOrdered By: Ayanna Vicente on 04-01-2022 Free T4 [Mass/Vol] 1.02 ng/dL 0.61-1.12 [facility] Triglyceride [Mass/volume] i n Serum or PlasmaOrdered By: Ayanna Vicente on 04-01-2022 Triglyceride [Mass/Vol] 125 mg/dL 35-149 [facility] Comment on above: TRIG ATP III [...] 04-01-2022 Free T3 [Mass/Vol] 2.81 pg/mL 2.50-3.90 [facility] Glucose Glucometer (BldC) [M ass/Vol]Ordered By: Galo Max on 01-26-2022 Glucose [Mass/Vol] 117 mg/dL [facility] Comment on above: Random Glucose Refer ence Range is dependent on time and content of last meal. Glucose of more than 200 mg/dL in a nonstressed, ambulatory subject supports the diagnosis of Diabetes Mellitus. Basophils Auto (Bld) [#/Vol] Ordered By: Ashley Ramos on 01-25-2022 Basophils (Bld) [#/Vol] 0.0 10*3/uL 0.0-0.2 [facility] Basophils/100 WBC Auto (Bld) Ordered By: Ashley Ramos on 01-25-2022 Basophils/100 WBC (Bld) 0.3 % . [facility] Blood hemoglobin measurement (mass/volume)Ordered By: Ashley Ramos on 01-25-2022 Hemoglobin (Bld) [Mass/Vol] 11.0 g/dL 11.8-15.4 [facility] Blood leukocytes automated c ount (number/volume)Ordered By: Ashley Ramos on 01-25-2022 WBC (Bld) [#/Vol] 9.5 10*3/uL 4.5-11.0 [facility] Creatinine and Glomerular fi ltration rate.predicted panel (S/P/Bld)Ordered By: Ashley Ramos on 01-25-2022 Creatinine [Mass/Vol] 0.78 mg/dL 0.44-1.03 [facility] Eosinophils Auto (Bld) [#/Vo l]Ordered By: Ashley Ramos on 01-25-2022 Eosinophils (Bld) [#/Vol] 0.3 10*3/uL 0.0-0.45 [facility] Eosinophils/100 WBC Auto (Bl d)Ordered By: Ashley Ramos on 01-25-2022 Eosinophils/100 WBC (Bld) 3.6 % . [facility] Erythrocyte distribution wid th Auto (RBC) [Ratio]Ordered By: Ashley Ramos on 01-25-2022 Erythrocyte distribution width (RBC) [Ratio] 15.4 % 11.9-15.3 [facility] Estimated glomerular filtrat ion rate (GFR) non- AmericanOrdered By: Ashley Ramos on 01-25-2022 GFR/1.73 sq M.predicted among non-blacks MDRD (S/P/Bld) [Vol rate/Area] > 60 mL/Min [facility] Hematocrit Auto (Bld) [Volum e fraction]Ordered By: Ashley Ramos on 01-25-2022 Hematocrit (Bld) [Volume fraction] 33.2 % 34.0-46.4 [facility] Laboratory - Hematology and Cell countsOrdered By: Ashley Ramos on 01-25-2022 Nucleated RBC/100 WBC (Bld) [Ratio] 0.2 % 0-0.5 [facility] Lymphocytes Auto (Bld) [#/Vo l]Ordered By: Ashley Ramos on 01-25-2022 Lymphocytes (Bld) [#/Vol] 6.4 10*3/uL 1.00-4.8 [facility] Lymphocytes/100 WBC Auto (Bl d)Ordered By: Ashley Ramos on 01-25-2022 Lymphocytes/100 WBC (Bld) 67.6 % . [facility] MCH Auto (RBC) [Entitic mass ]Ordered By: Ashley Ramos on 01-25-2022 MCH (RBC) [Entitic mass] 28.7 pg 24.7-34.3 [facility] MCHC Auto (RBC) [Mass/Vol]Or dered By: Ashley Ramos on 01-25-2022 MCHC (RBC) [Mass/Vol] 33.3 g/dL 32.0-35.0 [facility] MCV Auto (RBC) [Entitic vol] Ordered By: Ashley Ramos on 01-25-2022 MCV (RBC) [Entitic vol] 86.3 fL 80-100 [facility] Monocytes Auto (Bld) [#/Vol] Ordered By: Ashley Ramos on 01-25-2022 Monocytes (Bld) [#/Vol] 0.7 10*3/uL 0.0-0.8 [facility] Monocytes/100 WBC Auto (Bld) Ordered By: Ashley Ramos on 01-25-2022 Monocytes/100 WBC (Bld) 7.4 % . [facility] Neutrophils Auto (Bld) [#/Vo l]Ordered By: Ashley Ramos on 01-25-2022 Neutrophils (Bld) [#/Vol] 2.0 10*3/uL 1.8-7.7 [facility] Neutrophils/100 WBC Auto (Bl d)Ordered By: Ashley Ramos on 01-25-2022 Neutrophils/100 WBC (Bld) 21.1 % . [facility] No Panel InformationOrdered By: Ashley Ramos on 01-25-2022 Estimated GFR () > 60 mL/Min [facility] Comment on above: GFR estimated refere nce range: According to KDOQI guidelines, <60 ml/min/1.73m2 is sufficient to diagnose a patient with chronic kidney disease. Pharmacy Creatinine Clearance (Chem 76.46 [facility] Platelet Estimate Normal Normal [facility] Platelet Morphology Comment Normal Normal [facility] Smudge Cells Few [facility] Platelet mean volume Auto (B ld) [Entitic vol]Ordered By: Ashley Ramos on 01-25-2022 Platelet mean volume (Bld) [Entitic vol] 8.6 fL 6.3-10.7 [facility] Platelets Auto (Bld) [#/Vol] Ordered By: Ashley Ramos on 01-25-2022 Platelets (Bld) [#/Vol] 240 10*3/uL 150-450 [facility] RBC Auto (Bld) [#/Vol]Ordere d By: Ashley Ramos on 01-25-2022 RBC (Bld) [#/Vol] 3.84 10*6/uL 3.60-5.00 [facility] RBC morphologyOrdered By: Kendall Ramos on 01-25-2022 RBC morphology finding Nom (Bld) Normal [facility] Serum or plasma calcium massimo urement (mass/volume)Ordered By: Ashley Ramos on 01-25-2022 Calcium [Mass/Vol] 8.7 mg/dL 8.2-10.2 [facility] Serum or plasma chloride chris surement (moles/volume)Ordered By: Ashley Ramos on 01-25-2022 Chloride [Moles/Vol] 101 mmol/L 95-114 [facility] Serum or plasma glucose massimo urement (mass/volume)Ordered By: Ashley Ramos on 01-25-2022 Glucose [Mass/Vol] 133 mg/dL 70-100 [facility] Comment on above: ADA recommended [...] on 01-25-2022 Sodium [Moles/Vol] 141 mmol/L 136-146 [facility] Serum or plasma total carbon dioxide measurement (moles/volume)Ordered By: Ashley Ramos on 01-25-2022 CO2 [Moles/Vol] 30.7 mmol/L 22.0-30.0 [facility] Serum or plasma urea nitroge n measurement (mass/volume)Ordered By: Ashley Ramos on 01-25-2022 Urea nitrogen [Mass/Vol] 14 mg/dL 9-23 [facility] No Panel InformationOrdered By: Galo Max on 01-24-2022 Bedside Glucose Comment Glu2: cleaned meter [facility] Bacterial blood cultureOrder ed By: James Redding on 01-18-2022 Bacteria identified Cx Nom (Bld) NO GROWTH 5 DAYS [facility] Albumin [Mass/volume] in Ser um or PlasmaOrdered By: Galo Max on 01-16-2022 Albumin [Mass/Vol] 3.1 g/dL 3.2-5.5 [facility] Blood acanthocytes detection by light microscopyOrdered By: Galo Max on 01-16-2022 Acanthocytes LM Ql (Bld) Rare [facility] Globulin Calc (S) [Mass/Vol] Ordered By: Galo Max on 01-16-2022 Globulin (S) [Mass/Vol] 3.0 g/dL F [facility] No Panel InformationOrdered By: Galo Max on 01-16-2022 CBC Comment See comment [facility] Comment on above: Slide referred to pa thologist for review Protein [Mass/volume] in Ser um or PlasmaOrdered By: Galo Max on 01-16-2022 Protein [Mass/Vol] 6.1 g/dL 6.1-7.9 [facility] Serum or plasma alanine roman otransferase measurement without P-5'-P (enzymatic activiOrdered By: Galo Max on 01-16-2022 ALT No additional P-5'-P [Catalytic activity/Vol] 24 U/L 10-60 [facility] Serum or plasma albumin/glob ulin mass ratioOrdered By: Galo Max on 01-16-2022 Albumin/Globulin [Mass ratio] 1.0 {ratio} [facility] Serum or plasma alkaline mayelin sphatase measurement (enzymatic activity/volume)Ordered By: Galo Max on 01-16-2022 ALP [Catalytic activity/Vol] 88 U/L 32-92 [facility] Serum or plasma aspartate am inotransferase measurement (enzymatic activity/volume)Ordered By: Galo Max on 01-16-2022 AST [Catalytic activity/Vol] 23 U/L 10-42 [facility] Serum or plasma prealbumin m easurement (mass/volume)Ordered By: Galo Max on 01-16-2022 Prealbumin [Mass/Vol] 22.1 mg/dL 18.0-38.0 [facility] Serum or plasma total biliru bin measurement (mass/volume)Ordered By: Galo Max on 01-16-2022 Bilirubin [Mass/Vol] 0.6 mg/dL 0.3-1.2 [facility] Creatinine and Glomerular fi ltration rate.predicted panel (S/P/Bld)Ordered By: Bertram Garrison on 01-15-2022 Creatinine [Mass/Vol] 0.80 mg/dL 0.44-1.03 [facility] Comment on above: Delta: 1.35 on 01/14 Estimated glomerular filtrat ion rate (GFR) non- AmericanOrdered By: Bertram Garrison on 01-15-2022 GFR/1.73 sq M.predicted among non-blacks MDRD (S/P/Bld) [Vol rate/Area] > 60 mL/Min [facility] Glucose Glucometer (BldC) [M ass/Vol]Ordered By: Bertram Garrison on 01-15-2022 Glucose [Mass/Vol] 226 mg/dL [facility] Comment on above: Random Glucose Refer ence Range is dependent on time and content of last meal. Glucose of more than 200 mg/dL in a nonstressed, ambulatory subject supports the diagnosis of Diabetes Mellitus. No Panel InformationOrdered By: Bertram Garrison on 01-15-2022 Bedside Glucose Comment Glu2: cleaned meter [facility] Estimated GFR () > 60 mL/Min [facility] Comment on above: GFR estimated refere nce range: According to KDOQI guidelines, <60 ml/min/1.73m2 is sufficient to diagnose a patient with chronic kidney disease. Pharmacy Creatinine Clearance (Chem 75.85 [facility] Serum or plasma calcium massimo urement (mass/volume)Ordered By: Bertram Garrison on 01-15-2022 Calcium [Mass/Vol] 9.2 mg/dL 8.2-10.2 [facility] Serum or plasma chloride chris surement (moles/volume)Ordered By: Bertram Garrison on 01-15-2022 Chloride [Moles/Vol] 99 mmol/L 95-114 [facility] Serum or plasma glucose massimo urement (mass/volume)Ordered By: Bertram Garrison on 01-15-2022 Glucose [Mass/Vol] 293 mg/dL 70-100 [facility] Comment on above: ADA recommended [...] on 01-15-2022 Sodium [Moles/Vol] 136 mmol/L 136-146 [facility] Serum or plasma total carbon dioxide measurement (moles/volume)Ordered By: Bertram Garrison on 01-15-2022 CO2 [Moles/Vol] 29.1 mmol/L 22.0-30.0 [facility] Serum or plasma urea nitroge n measurement (mass/volume)Ordered By: Bertram Garrison on 01-15-2022 Urea nitrogen [Mass/Vol] 23 mg/dL 9-23 [facility] Urine culture routineOrdered By: James Redding on 01-15-2022 Bacteria identified Cx Nom (U) Enterococcus faecalis [facility] Basophils Auto (Bld) [#/Vol] Ordered By: Bertram Garrison on 01-14-2022 Basophils (Bld) [#/Vol] 0.1 10*3/uL 0.0-0.2 [facility] Basophils/100 WBC Auto (Bld) Ordered By: Bertram Garrison on 01-14-2022 Basophils/100 WBC (Bld) 0.6 % . F [facility] Blood acanthocytes detection by light microscopyOrdered By: Bertram Garrison on 01-14-2022 Acanthocytes LM Ql (Bld) Few [facility] Blood hemoglobin measurement (mass/volume)Ordered By: Bertram Garrison on 01-14-2022 Hemoglobin (Bld) [Mass/Vol] 11.7 g/dL 11.8-15.4 [facility] Blood leukocytes automated c ount (number/volume)Ordered By: Bertram Garrison on 01-14-2022 WBC (Bld) [#/Vol] 11.5 10*3/uL 4.5-11.0 [facility] Eosinophils Auto (Bld) [#/Vo l]Ordered By: Bertram Garrison on 01-14-2022 Eosinophils (Bld) [#/Vol] 0.4 10*3/uL 0.0-0.45 [facility] Eosinophils/100 WBC Auto (Bl d)Ordered By: Bertram Garrison on 01-14-2022 Eosinophils/100 WBC (Bld) 3.3 % . [facility] Erythrocyte distribution wid th Auto (RBC) [Ratio]Ordered By: Bertram Garrison on 01-14-2022 Erythrocyte distribution width (RBC) [Ratio] 14.4 % 11.9-15.3 [facility] Hematocrit Auto (Bld) [Volum e fraction]Ordered By: Bertram Garrison on 01-14-2022 Hematocrit (Bld) [Volume fraction] 35.4 % 34.0-46.4 [facility] Laboratory - Hematology and Cell countsOrdered By: Bertram Garrison on 01-14-2022 Nucleated RBC/100 WBC (Bld) [Ratio] 0.3 % 0-0.5 [facility] Lymphocytes Auto (Bld) [#/Vo l]Ordered By: Bertram Garrison on 01-14-2022 Lymphocytes (Bld) [#/Vol] 7.2 10*3/uL 1.00-4.8 [facility] Lymphocytes/100 WBC Auto (Bl d)Ordered By: Bertram Garrison on 01-14-2022 Lymphocytes/100 WBC (Bld) 62.9 % . [facility] MCH Auto (RBC) [Entitic mass ]Ordered By: Bertram Garrison on 01-14-2022 MCH (RBC) [Entitic mass] 28.4 pg 24.7-34.3 [facility] MCHC Auto (RBC) [Mass/Vol]Or dered By: Bertram Garrison on 01-14-2022 MCHC (RBC) [Mass/Vol] 32.9 g/dL 32.0-35.0 [facility] MCV Auto (RBC) [Entitic vol] Ordered By: Bertram Garrison on 01-14-2022 MCV (RBC) [Entitic vol] 86.1 fL 80-100 [facility] Monocytes Auto (Bld) [#/Vol] Ordered By: Bertram Garrison on 01-14-2022 Monocytes (Bld) [#/Vol] 0.6 10*3/uL 0.0-0.8 [facility] Monocytes/100 WBC Auto (Bld) Ordered By: Bertram Garrison on 01-14-2022 Monocytes/100 WBC (Bld) 5.0 % . [facility] Neutrophils Auto (Bld) [#/Vo l]Ordered By: Bertram Garrison on 01-14-2022 Neutrophils (Bld) [#/Vol] 3.2 10*3/uL 1.8-7.7 [facility] Neutrophils/100 WBC Auto (Bl d)Ordered By: Bertram Garrison on 01-14-2022 Neutrophils/100 WBC (Bld) 28.2 % . [facility] No Panel InformationOrdered By: Bertram Garrison on 01-14-2022 Platelet Estimate Normal Normal [facility] Platelet Morphology Comment Normal Normal [facility] Platelet mean volume Auto (B ld) [Entitic vol]Ordered By: Bertram Garrison on 01-14-2022 Platelet mean volume (Bld) [Entitic vol] 9.8 fL 6.3-10.7 [facility] Platelets Auto (Bld) [#/Vol] Ordered By: Bertram Garrison on 01-14-2022 Platelets (Bld) [#/Vol] 277 10*3/uL 150-450 [facility] RBC Auto (Bld) [#/Vol]Ordere d By: Bertram Garrison on 01-14-2022 RBC (Bld) [#/Vol] 4.11 10*6/uL 3.60-5.00 [facility] RBC morphologyOrdered By: New Garrison on 01-14-2022 RBC morphology finding Nom (Bld) Normal [facility] Albumin [Mass/volume] in Ser um or PlasmaOrdered By: James Redding on 01-13-2022 Albumin [Mass/Vol] 3.1 g/dL 3.2-5.5 [facility] Automated erythrocytes count in urine sediment (number/area)Ordered By: James Redding on 01-13-2022 RBC Auto (Urine sed) [#/Area] 0-1 [HPF] 0-4 [facility] Automated leukocytes count i n urine sediment (number/area)Ordered By: James Redding on 01-13-2022 WBC Auto (Urine sed) [#/Area] 50-100 [HPF] 0-4 [facility] Bilirubin Test strip Ql (U)O rdered By: James Redding on 01-13-2022 Bilirubin Ql (U) 1+ Negative [facility] COVID-19 Positive/NegativeOr dered By: James Redding on 01-13-2022 SARS-CoV-2 (COVID-19) N gene FARRAH+probe Ql (Resp) Negative Negative [facility] Comment on above: Testing for SARS-CoV -2 by RT-PCR This test was developed and its performance characteristics determined by [employer] and validated at the [facility]. This test has not been FDA cleared [...] (COVID-19) Ag IA.rapid Ql (Resp) Negative Negative [facility] Comment on above: This is a duplicate Brianna SARS Antigen (DUSTIN) result to be used for statistical tracking purpose only. Color Auto (U)Ordered By: Anni Redding on 01-13-2022 Color (U) Dark yellow Yellow [facility] Globulin Calc (S) [Mass/Vol] Ordered By: James Redding on 01-13-2022 Globulin (S) [Mass/Vol] 3.0 g/dL F [facility] Ketones Auto test strip (U) [Mass/Vol]Ordered By: James Redding on 01-13-2022 Ketones (U) [Mass/Vol] Trace Negative [facility] Laboratory - UrinalysisOrder ed By: James Redding on 01-13-2022 Hyaline casts LM Ql (Urine sed) 9-19 [LPF] 0-8 [facility] Nitrite Test strip Ql (U)Ord ered By: James Redding on 01-13-2022 Nitrite Ql (U) Negative Negative [facility] No Panel InformationOrdered By: James Redding on 01-13-2022 Smudge Cells Few [facility] SARS Antigen (LFIA) [facility] Protein Auto test strip (U) [Mass/Vol]Ordered By: James Redding on 01-13-2022 Protein (U) [Mass/Vol] 30 mg/dL Negative [facility] Protein [Mass/volume] in Ser um or PlasmaOrdered By: James Redding on 01-13-2022 Protein [Mass/Vol] 6.1 g/dL 6.1-7.9 [facility] Serum or plasma alanine roman otransferase measurement without P-5'-P (enzymatic activiOrdered By: James Redding on 01-13-2022 ALT No additional P-5'-P [Catalytic activity/Vol] 27 U/L 10-60 [facility] Serum or plasma albumin/glob ulin mass ratioOrdered By: James Redding on 01-13-2022 Albumin/Globulin [Mass ratio] 1.0 {ratio} [facility] Serum or plasma alkaline mayelin sphatase measurement (enzymatic activity/volume)Ordered By: James Redding on 01-13-2022 ALP [Catalytic activity/Vol] 95 U/L 32-92 [facility] Serum or plasma aspartate am inotransferase measurement (enzymatic activity/volume)Ordered By: James Redding on 01-13-2022 AST [Catalytic activity/Vol] 27 U/L 10-42 [facility] Serum or plasma total biliru bin measurement (mass/volume)Ordered By: James Redding on 01-13-2022 Bilirubin [Mass/Vol] 0.6 mg/dL 0.3-1.2 [facility] Specific gravity Auto test s trip (U) [Rel density]Ordered By: James Redding on 01-13-2022 Specific gravity (U) [Rel density] 1.029 1.001-1.030 [facility] Squamous epithelial cells de tection in urine sediment by light microscopyOrdered By: James Redding on 01-13-2022 Epithelial cells.squamous LM Ql (Urine sed) 1-2 [HPF] 0-1 [facility] Troponin I.cardiac [Mass/vol ume] in Serum or Plasma by High sensitivity methodOrdered By: James Redding on 01-13-2022 Troponin I.cardiac High sensitivity method [Mass/Vol] 4 pg/mL 0-15 [facility] Urine bacteria detection by automated methodOrdered By: James Redding on 01-13-2022 Bacteria Auto Ql (U) 2+ None Seen [facility] Urine clarity by refractomet ry automatedOrdered By: James Redding on 01-13-2022 Clarity Refractometry automated (U) Cloudy Clear [facility] Urine glucose measurement by automated test strip (mass/volume)Ordered By: James Redding on 01-13-2022 Glucose Auto test strip (U) [Mass/Vol] Normal mg/dL Normal [facility] Urine hemoglobin detection b y automated test stripOrdered By: James Redding on 01-13-2022 Hemoglobin Auto test strip Ql (U) Negative Negative [facility] Urine leukocyte esterase det ection by automated test stripOrdered By: James Redding on 01-13-2022 Leukocyte esterase Auto test strip Ql (U) 3+ Negative [facility] Urobilinogen Auto test strip (U) [Mass/Vol]Ordered By: James Redding on 01-13-2022 Urobilinogen (U) [Mass/Vol] Normal mg/dL Normal [facility] pH Auto test strip (U)Ordere d By: James Redding on 01-13-2022 pH (U) 5.0 [pH] 5.0-9.0 [facility] CARDIAC STRESS/REST INJE CTIONon 01-04-2021 [facility] CARDIAC STRESS/REST INJECTION Patient Name: KATHY WASHBURN STUDY: MYOCARDIAL PERFUSION STRESS TEST WITH LEXISCAN Performing facility: [facility], [address] [place] [address], [address], [address] Provider: Osmel Fernandes MD, [facility] PCP: Dr. Lyndon Vicente Supervising provider: Osmel Fernandes MD, [facility] INDICATION: Chest Pain; HTN Hyperlipidemia Diabetes Dyspnea HISTORY: Gender: F; Age: 80 y/o ; Height: 175.26 cm; Weight: [phone] kg. High Cholesterol; Diabetes; HTN; Chest Pain; SOB; Quit smoking Unknown years ago. COMPARISON: Previous nuclear testing completed at [facility]. ACCESSION NUMBER(S): [id number]; [id number]; [id number] ORDERING CLINICIAN: MONET FERNANDES TECHNIQUE: ONE DAY [...] comparison. Electronically signed by: SARAH HODGES MD [facility] Vital Signs Date Time Vital Sign Value Performing Clinician Elli panchal 02-15-2025 14:44-0400 Body height 175.26 cm Ayanna Vicente DO Work Phone: [facility] 02-15-2025 14:44-0400 Body mass index (BMI) [Ratio] 34 kg/m2 Ayanna Vicente DO Work Phone: [facility] 02-15-2025 14:44-0400 Body temperature 98.3 [degF] Ayanna Vicente DO Work Phone: [facility] 02-15-2025 14:44-0400 Body weight 104.32 kg Ayanna Vicente DO Work Phone: [facility] 02-15-2025 14:44-0400 Diastolic blood pressure 82 mm[Hg] Ayanna Vicente DO Work Phone: [facility] 02-15-2025 14:44-0400 Heart rate 79 /min Ayanna Vicente DO Work Phone: [facility] 02-15-2025 14:44-0400 SaO2% (BldA) [Mass fraction] 92 % Ayanna Vicente DO Work Phone: [facility] 02-15-2025 14:44-0400 Systolic blood pressure 120 mm[Hg] Ayanna Vicente DO Work Phone: [facility] 01-27-2025 13:56-0400 Body height 175.26 cm Ayanna Vicente DO Work Phone: [facility] 01-27-2025 13:56-0400 Body mass index (BMI) [Ratio] 33.5 kg/m2 Ayanna Vicente DO Work Phone: [facility] 01-27-2025 13:56-0400 Body weight 103.02 kg Ayanna Vicente DO Work Phone: [facility] 01-27-2025 13:56-0400 Diastolic blood pressure 74 mm[Hg] Ayanna Vicente DO Work Phone: [facility] 01-27-2025 13:56-0400 Heart rate 59 /min Ayanna Vicente DO Work Phone: [facility] 01-27-2025 13:56-0400 Respiratory rate 16 /min Ayanna Vicente DO Work Phone: [facility] 01-27-2025 13:56-0400 SaO2% (BldA) [Mass fraction] 94 % Ayanna Vicente DO Work Phone: [facility] 01-27-2025 13:56-0400 Systolic blood pressure 122 mm[Hg] Ayanna Vicente DO Work Phone: [facility] 01-12-2025 13:23-0400 Body height 175.3 cm Moe Itzkowitz DO Work Phone: [facility] 01-12-2025 13:23-0400 Body mass index (BMI) [Ratio] 33.23 kg/m2 Moe Itzkowitz DO Work Phone: [facility] 01-12-2025 13:23-0400 Body weight 102.06 kg Moe Itzkowitz DO Work Phone: [facility] 01-12-2025 13:23-0400 Diastolic blood pressure 76 mm[Hg] Moe Itzkowitz DO Work Phone: [facility] 01-12-2025 13:23-0400 Systolic blood pressure 122 mm[Hg] Moe Itzkowitz DO Work Phone: [facility] 12-17-2024 10:27-0400 Body height 172.7 cm Zohaib German MD Work Phone: [facility] 12-17-2024 10:27-0400 Body mass index (BMI) [Ratio] 34.74 kg/m2 Zohaib German MD Work Phone: [facility] 12-17-2024 10:27-0400 Body temperature 64.99 [degF] Zohaib German MD Work Phone: [facility] 12-17-2024 10:27-0400 Body weight 103.6 kg Zohaib German MD Work Phone: [facility] 12-17-2024 10:27-0400 Diastolic blood pressure 71 mm[Hg] Zohaib German MD Work Phone: [facility] 12-17-2024 10:27-0400 Systolic blood pressure 112 mm[Hg] Zohaib German MD Work Phone: [facility] 12-16-2024 [id number] Body height 175.26 cm [facility] 12-16-2024 14:21-0400 Body mass index (BMI) [Ratio] 34.9 kg/m2 [facility] 12-16-2024 14:21-0400 Body temperature 96.9 [degF] [facility] 12-16-2024 14:21-0400 Body weight 107.5 kg [facility] 12-16-2024 14:21-0400 Diastolic blood pressure 69 mm[Hg] [facility] 12-16-2024 14:21-0400 Heart rate 68 /min [facility] 12-16-2024 14:21-0400 Respiratory rate 18 /min [facility] 12-16-2024 14:21-0400 SaO2% (BldA) [Mass fraction] 92 % [facility] 12-16-2024 14:21-0400 Systolic blood pressure 104 mm[Hg] [facility] 11-10-2024 15:40-0400 Body height 175.26 cm [facility] 11-10-2024 15:40-0400 Body mass index (BMI) [Ratio] 32.9 kg/m2 [facility] 11-10-2024 15:40-0400 Body temperature 97.3 [degF] [facility] 11-10-2024 15:40-0400 Body weight 101.15 kg [facility] 11-10-2024 15:40-0400 Diastolic blood pressure 84 mm[Hg] [facility] 11-10-2024 15:40-0400 Heart rate 74 /min [facility] 11-10-2024 15:40-0400 SaO2% (BldA) [Mass fraction] 94 % [facility] 11-10-2024 15:40-0400 Systolic blood pressure 132 mm[Hg] [facility] 08-16-2024 09:06-0500 Diastolic blood pressure 58 mm[Hg] SUSAN RANDOLPH [facility] 08-16-2024 09:06-0500 Heart rate 69 /min SUSAN JAX [facility] 08-16-2024 09:06-0500 Respiratory rate 16 /min SUSAN JAX [facility] 08-16-2024 09:06-0500 Systolic blood pressure 92 mm[Hg] SUSAN JAX [facility] 08-09-2024 14:16-0500 Body mass index (BMI) [Ratio] 32.93 kg/m2 Esvin Dubon [employer]ARM[employer]Y SALES ASSISTANT Work Phone: [facility] 08-09-2024 14:16-0500 Body weight 101.15 kg Esvin Dubon PHARMACY SALES ASSISTANT Work Phone: [facility] 08-09-2024 14:16-0500 Diastolic blood pressure 87 mm[Hg] Esvin Dubon PHARMACY SALES ASSISTANT Work Phone: [facility] 08-09-2024 14:16-0500 Heart rate 64 /min Esvin Dubon PHARMACY SALES ASSISTANT Work Phone: [facility] 08-09-2024 14:16-0500 Systolic blood pressure 125 mm[Hg] Esvin Dubon PHARMACY SALES ASSISTANT Work Phone: [facility] 06-23-2024 14:34-0500 Body height 175.3 cm Moe Itzkowitz DO Work Phone: [facility] 06-23-2024 14:34-0500 Body mass index (BMI) [Ratio] 33.67 kg/m2 Moe Itzkowitz DO Work Phone: [facility] 06-23-2024 14:34-0500 Body weight 103.42 kg Moe Itzkowitz DO Work Phone: [facility] 06-23-2024 14:34-0500 Diastolic blood pressure 85 mm[Hg] Moe Itzkowitz DO Work Phone: [facility] 06-23-2024 14:34-0500 Systolic blood pressure 135 mm[Hg] Moe Itzkowitz DO Work Phone: [facility] 06-17-2024 13:58-0500 Body mass index (BMI) [Ratio] 33.82 kg/m2 Christopher Aundrea DO Work Phone: [facility] 06-17-2024 13:58-0500 Body weight 103.87 kg Christopher Aundrea DO Work Phone: [facility] 06-17-2024 13:58-0500 Diastolic blood pressure 74 mm[Hg] Christopher Aundrea DO Work Phone: [facility] 06-17-2024 13:58-0500 Heart rate 84 /min Christopher Aundrea DO Work Phone: [facility] 06-17-2024 13:58-0500 SaO2% (BldA) [Mass fraction] 90 % Christopher Aundrea DO Work Phone: [facility] 06-17-2024 13:58-0500 Systolic blood pressure 138 mm[Hg] Primoalicia Guillaume Work Phone: [facility] 05-26-2024 13:54-0500 Body height 172.7 cm Chad Freitas MD Work Phone: [facility] 05-26-2024 13:54-0500 Body mass index (BMI) [Ratio] 35.31 kg/m2 Chad Freitas MD Work Phone: [facility] 05-26-2024 13:54-0500 Body temperature 97 [degF] Chad Freitas MD Work Phone: [facility] 05-26-2024 13:54-0500 Body weight 105.33 kg Chad Freitas MD Work Phone: [facility] 05-26-2024 13:54-0500 Diastolic blood pressure 51 mm[Hg] Chad Freitas MD Work Phone: [facility] 05-26-2024 13:54-0500 Heart rate 70 /min Chad Freitas MD Work Phone: [facility] 05-26-2024 13:54-0500 Respiratory rate 16 /min Chad Freitas MD Work Phone: [facility] 05-26-2024 13:54-0500 SaO2% (BldA) [Mass fraction] 91 % Chad Freitas MD Work Phone: [facility] 05-26-2024 13:54-0500 Systolic blood pressure 92 mm[Hg] Chad Freitas MD Work Phone: [facility] 05-17-2024 13:00-0500 Body height 172.7 cm Zohaib German MD Work Phone: [facility] 05-17-2024 13:00-0500 Body mass index (BMI) [Ratio] 34.67 kg/m2 Zohaib German MD Work Phone: [facility] 05-17-2024 13:00-0500 Body weight 103.4 kg Zohaib German MD Work Phone: [facility] 05-17-2024 13:00-0500 Diastolic blood pressure 75 mm[Hg] Zohaib German MD Work Phone: [facility] 05-17-2024 13:00-0500 Heart rate 62 /min Zohaib German MD Work Phone: [facility] 05-17-2024 13:00-0500 Systolic blood pressure 117 mm[Hg] Zohaib German MD Work Phone: [facility] 05-12-2024 13:50-0400 Body height 180.34 cm DO Ayanna Ogabbi Work Phone: [facility] 05-12-2024 13:50-0400 Body mass index (BMI) [Ratio] 32.2 kg/m2 DO Ayanna Ogabbi Work Phone: [facility] 05-12-2024 13:50-0400 Body weight 104.77 kg DO Ayanna Vicente Work Phone: [facility] 05-12-2024 13:50-0400 Diastolic blood pressure 57 mm[Hg] DO Ayanna Ogabbi Work Phone: [facility] 05-12-2024 13:50-0400 Heart rate 86 /min DO Ayanna Earleabbi Work Phone: [facility] 05-12-2024 13:50-0400 SaO2% (BldA) [Mass fraction] 93 % DO Ayanna Vicente Work Phone: [facility] 05-12-2024 13:50-0400 Systolic blood pressure 128 mm[Hg] DO Ayanna Ogabbi Work Phone: [facility] 05-11-2024 14:45-0400 Body mass index (BMI) [Ratio] 31.9 kg/m2 DO Ayanna Ogabbi Work Phone: [facility] 05-11-2024 14:45-0400 Body temperature 97.3 [degF] DO Ayanna Vicente Work Phone: [facility] 05-11-2024 14:45-0400 Diastolic blood pressure 70 mm[Hg] DO Ayanna Vicente Work Phone: [facility] 05-11-2024 14:45-0400 Heart rate 76 /min DO Ayanna Vicente Work Phone: [facility] 05-11-2024 14:45-0400 SaO2% (BldA) [Mass fraction] 91 % DO Ayanna Vicente Work Phone: [facility] 05-11-2024 14:45-0400 Systolic blood pressure 116 mm[Hg] DO Ayanna Vicente Work Phone: [facility] 05-11-2024 13:41-0400 Body height 180.34 cm DO Ayanna Vicente Work Phone: [facility] 05-11-2024 13:41-0400 Body weight 103.87 kg DO Ayanna Vicente Work Phone: [facility] 04-05-2024 08:52-0400 Body height 180.34 cm [facility] 04-05-2024 08:52-0400 Body mass index (BMI) [Ratio] 32.3 kg/m2 [facility] 04-05-2024 08:52-0400 Body temperature 97 [degF] [facility] 04-05-2024 08:52-0400 Body weight 105.23 kg [facility] 04-05-2024 08:52-0400 Diastolic blood pressure 62 mm[Hg] [facility] 04-05-2024 08:52-0400 Heart rate 87 /min [facility] 04-05-2024 08:52-0400 SaO2% (BldA) [Mass fraction] 90 % [facility] 04-05-2024 08:52-0400 Systolic blood pressure 98 mm[Hg] [facility] 03-08-2024 14:43-0400 Body height 180.34 cm [facility] 03-08-2024 14:43-0400 Body mass index (BMI) [Ratio] 32.1 kg/m2 [facility] 03-08-2024 14:43-0400 Body temperature 97 [degF] [facility] 03-08-2024 14:43-0400 Body weight 104.32 kg [facility] 03-08-2024 14:43-0400 Diastolic blood pressure 64 mm[Hg] [facility] 03-08-2024 14:43-0400 Heart rate 73 /min [facility] 03-08-2024 14:43-0400 SaO2% (BldA) [Mass fraction] 95 % [facility] 03-08-2024 14:43-0400 Systolic blood pressure 98 mm[Hg] [facility] 02-24-2024 10:15-0400 Body temperature 97.88 [degF] SUSAN J[facility] 02-24-2024 10:15-0400 Diastolic blood pressure 42 mm[Hg] SUSAN JAX [facility] 02-24-2024 10:15-0400 Heart rate 68 /min SUSAN JAX [facility] 02-24-2024 10:15-0400 Respiratory rate 16 /min SUSAN JAX [facility] 02-24-2024 10:15-0400 Systolic blood pressure 106 mm[Hg] SUSAN JAX [facility] 02-05-2024 08:08-0400 Body height 180.34 cm [facility] 02-05-2024 08:08-0400 Body mass index (BMI) [Ratio] 32.3 kg/m2 [facility] 02-05-2024 08:08-0400 Body temperature 97.8 [degF] [facility] 02-05-2024 08:08-0400 Body weight 105.23 kg [facility] 02-05-2024 08:08-0400 Diastolic blood pressure 74 mm[Hg] [facility] 02-05-2024 08:08-0400 Heart rate 70 /min [facility] 02-05-2024 08:08-0400 Respiratory rate 18 /min [facility] 02-05-2024 08:08-0400 SaO2% (BldA) [Mass fraction] 98 % [facility] 02-05-2024 08:08-0400 Systolic blood pressure 122 mm[Hg] [facility] 01-12-2024 14:32-0400 Body height 180.34 cm DO Ayanna Ogabbi Work Phone: [facility] 01-12-2024 14:32-0400 Body mass index (BMI) [Ratio] 30.9 kg/m2 DO Ayanna Ogabbi Work Phone: [facility] 01-12-2024 14:32-0400 Body temperature 98 [degF] DO Ayanna Earleabbi Work Phone: [facility] 01-12-2024 14:32-0400 Body weight 100.69 kg DO Ayanna Ogabbi Work Phone: [facility] 01-12-2024 14:32-0400 Heart rate 61 /min DO Ayanna Ogabbi Work Phone: [facility] 01-12-2024 14:32-0400 Respiratory rate 18 /min DO Ayanna Earleabbi Work Phone: [facility] 01-12-2024 14:32-0400 SaO2% (BldA) [Mass fraction] 91 % DO Ayanna Ogabbi Work Phone: [facility] 10-21-2023 14:45-0400 Body height 180.34 cm DO Ayanna Vicente Work Phone: [facility] 10-21-2023 14:45-0400 Body mass index (BMI) [Ratio] 32.5 kg/m2 DO Ayanna Vicente Work Phone: [facility] 10-21-2023 14:45-0400 Body temperature 97.5 [degF] DO Ayanna Vicente Work Phone: [facility] 10-21-2023 14:45-0400 Body weight 105.68 kg DO Ayanna Vicente Work Phone: [facility] 10-21-2023 14:45-0400 Diastolic blood pressure 76 mm[Hg] DO Ayanna Vicente Work Phone: [facility] 10-21-2023 14:45-0400 Respiratory rate 18 /min DO Ayanna Vicente Work Phone: [facility] 10-21-2023 14:45-0400 SaO2% (BldA) [Mass fraction] 92 % DO Ayanna Vicente Work Phone: [facility] 10-21-2023 14:45-0400 Systolic blood pressure 118 mm[Hg] DO Ayanna Vicente Work Phone: [facility] 08-12-2023 14:20-0500 Body height 180.34 cm Homa Mckeon Other [facility] 08-12-2023 14:20-0500 Body mass index (BMI) [Ratio] 32.21 kg/m2 Homa Mckeon Other [facility] [employer] Other 08-12-2023 14:20-0500 Body weight 104.78 kg Homa Mckeon Other [facility] [employer] Other 08-12-2023 14:20-0500 Body weight 104.77 kg DO Ayanna Vicente Work Phone: [facility] 04-15-2023 14:40-0400 Body height 180.34 cm Ayanna Vicente Other [facility] [employer] Other 04-15-2023 14:40-0400 Body mass index (BMI) [Ratio] 33.61 kg/m2 Ayanna Vicente Other [facility] Other 04-15-2023 14:40-0400 Body temperature 98.8 [degF] Ayanna Vicente Other [facility] Other 04-15-2023 14:40-0400 Body weight 109.32 kg Ayanna Vicente Other [facility] Other 04-15-2023 14:40-0400 Diastolic blood pressure 82 mm[Hg] Ayanna Vicente Other [facility] Other 04-15-2023 14:40-0400 Respiratory rate 18 /min Ayanna Vicente Other [facility] Other 04-15-2023 14:40-0400 SaO2% (BldA) [Mass fraction] 93 % Ayanna Vicente Other [facility] Other 04-15-2023 14:40-0400 Systolic blood pressure 128 mm[Hg] Ayanna Vicente Other [facility] Other 02-25-2023 14:40-0400 Body height 180.34 cm Ayanna Vicente Other [facility] Other 02-25-2023 14:40-0400 Body mass index (BMI) [Ratio] 32.91 kg/m2 Ayanna Vicente Other [facility] Other 02-25-2023 14:40-0400 Body temperature 97.9 [degF] Ayanna Sakina Other [facility] Other 02-25-2023 14:40-0400 Body weight 107.05 kg Ayanna Earleabbi Other [facility] Other 02-25-2023 14:40-0400 Diastolic blood pressure 84 mm[Hg] Ayanna Vicente Other [facility] [employer] Other 02-25-2023 14:40-0400 Respiratory rate 18 /min Ayanna Vicente Other [facility] [employer] Other 02-25-2023 14:40-0400 SaO2% (BldA) [Mass fraction] 94 % Ayanna Vicente Other [facility] [employer] Other 02-25-2023 14:40-0400 Systolic blood pressure 122 mm[Hg] Ayanna Vicente Other [facility] [employer] Other 02-11-2023 11:35-0400 Blood Pressure Location SUSAN RANDOLPH [facility] 02-11-2023 11:35-0400 Diastolic blood pressure 67 mm[Hg] SUSAN RANDOLPH [facility] 02-11-2023 11:35-0400 Heart rate 70 /min SUSAN RANDOLPH [facility] 02-11-2023 11:35-0400 Systolic blood pressure 100 mm[Hg] SUSAN RANDOLPH [facility] 02-07-2023 13:28-0400 Body height 177.8 cm Santos Lares MD Work Phone: [facility] 02-07-2023 13:28-0400 Body temperature 97.3 [degF] Santos Lares MD Work Phone: [facility] 02-07-2023 13:28-0400 Body weight 107.96 kg Santos Lares MD Work Phone: [facility] 02-07-2023 13:28-0400 Diastolic blood pressure 72 mm[Hg] Santos Lares MD Work Phone: [facility] 02-07-2023 13:28-0400 Heart rate 74 /min Santos Lares MD Work Phone: [facility] 02-07-2023 13:28-0400 Respiratory rate 20 /min Santos Lares MD Work Phone: [facility] 02-07-2023 13:28-0400 SaO2% (BldA) [Mass fraction] 93 % Santos Lares MD Work Phone: [facility] 02-07-2023 13:28-0400 Systolic blood pressure 122 mm[Hg] Santos Lares MD Work Phone: [facility] 07-19-2022 12:17-0500 Body height 177.8 cm Santos Lares MD Work Phone: [facility] 07-19-2022 12:17-0500 Body temperature 98.01 [degF] Santos Lares MD Work Phone: [facility] 07-19-2022 12:17-0500 Body weight 105.6 kg Santos Lares MD Work Phone: [facility] 07-19-2022 12:17-0500 Diastolic blood pressure 71 mm[Hg] Santos Lares MD Work Phone: [facility] 07-19-2022 12:17-0500 Heart rate 72 /min Santos Lares MD Work Phone: [facility] 07-19-2022 12:17-0500 Respiratory rate 16 /min Santos Lares MD Work Phone: [facility] 07-19-2022 12:17-0500 SaO2% (BldA) [Mass fraction] 93 % Santos Lares MD Work Phone: [facility] 07-19-2022 12:17-0500 Systolic blood pressure 111 mm[Hg] Santos Lares MD Work Phone: [facility] 04-18-2022 11:58-0400 Body height 177.8 cm Santos Lares MD Work Phone: [facility] 04-18-2022 11:58-0400 Body temperature 97.81 [degF] Santos Lares MD Work Phone: [facility] 04-18-2022 11:58-0400 Body weight 102.69 kg Santos Lares MD Work Phone: [facility] 04-18-2022 11:58-0400 Diastolic blood pressure 68 mm[Hg] Santos Lares MD Work Phone: [facility] 04-18-2022 11:58-0400 Heart rate 70 /min Santos Lares MD Work Phone: [facility] 04-18-2022 11:58-0400 Respiratory rate 16 /min Santos Lares MD Work Phone: [facility] 04-18-2022 11:58-0400 SaO2% (BldA) [Mass fraction] 99 % Santos Lares MD Work Phone: [facility] 04-18-2022 11:58-0400 Systolic blood pressure 127 mm[Hg] Santos Lares MD Work Phone: [facility] 04-04-2022 10:59-0400 Body height 177.8 cm Santos Lares MD Work Phone: [facility] 04-04-2022 10:59-0400 Body temperature 97.11 [degF] Santos Lares MD Work Phone: [facility] 04-04-2022 10:59-0400 Body weight 103.78 kg Santos Lares MD Work Phone: [facility] 04-04-2022 10:59-0400 Diastolic blood pressure 73 mm[Hg] Santos Lares MD Work Phone: [facility] 04-04-2022 10:59-0400 Heart rate 68 /min Santos Lares MD Work Phone: [facility] 04-04-2022 10:59-0400 Respiratory rate 16 /min Santos Lares MD Work Phone: [facility] 04-04-2022 10:59-0400 SaO2% (BldA) [Mass fraction] 95 % Santos Lares MD Work Phone: [facility] 04-04-2022 10:59-0400 Systolic blood pressure 138 mm[Hg] Santos Lares MD Work Phone: [facility] 04-02-2022 14:20-0400 Body height 180.34 cm Ayanna Vicente Other [facility] Other 04-02-2022 14:20-0400 Body mass index (BMI) [Ratio] 31.73 kg/m2 Ayanna Vicente Other [facility] Other 04-02-2022 14:20-0400 Body temperature 97.2 [degF] Ayanna Vicente Other [facility] Other 04-02-2022 14:20-0400 Body weight 103.19 kg Ayanna Vicente Other [facility] Other 04-02-2022 14:20-0400 Diastolic blood pressure 76 mm[Hg] Ayanna Vicente Other [facility] Other 04-02-2022 14:20-0400 Respiratory rate 18 /min Ayanna Vicente Other [facility] Other 04-02-2022 14:20-0400 SaO2% (BldA) [Mass fraction] 96 % Ayanna Vicente Other [facility] Other 04-02-2022 14:20-0400 Systolic blood pressure 120 mm[Hg] Ayanna Vicente Other [facility] Other 02-06-2022 14:20-0400 Body height 180.34 cm Ayanna Vicente Other [facility] Other 02-06-2022 14:20-0400 Body mass index (BMI) [Ratio] 31.94 kg/m2 Ayanna Vicente Other [facility] Other 02-06-2022 14:20-0400 Body temperature 97.4 [degF] Ayanna Vicente Other [facility] Other 02-06-2022 14:20-0400 Body weight 103.87 kg Ayanna Vicente Other [facility] Other 02-06-2022 14:20-0400 Diastolic blood pressure 68 mm[Hg] Ayanna Vicente Other [facility] Other 02-06-2022 14:20-0400 Respiratory rate 18 /min Ayanna Vicente Other [facility] Other 02-06-2022 14:20-0400 SaO2% (BldA) [Mass fraction] 93 % Ayanna Vicente Other [facility] Other 02-06-2022 14:20-0400 Systolic blood pressure 114 mm[Hg] Ayanna Vicente Other [facility] Other 01-26-2022 05:00-0400 Body temperature 97.6 [degF] DO Ayanna Vicente Work Phone: [facility] 01-26-2022 05:00-0400 Diastolic blood pressure 77 mm[Hg] DO Ayanna Vicente Work Phone: [facility] 01-26-2022 05:00-0400 Heart rate 64 /min DO Ayanna Vicente Work Phone: [facility] 01-26-2022 05:00-0400 Respiratory rate 16 /min DO Ayanna Vicente Work Phone: [facility] 01-26-2022 05:00-0400 SaO2% (BldA) [Mass fraction] 94 % DO Ayanna Vicente Work Phone: [facility] 01-26-2022 05:00-0400 Systolic blood pressure 116 mm[Hg] DO Ayanna Vicente Work Phone: [facility] 01-23-2022 06:55-0400 Body height 177.8 cm DO Ayanna Vicente Work Phone: [facility] 01-20-2022 06:00-0400 Body weight 109.6 kg DO Ayanna Vicente Work Phone: [facility] 01-15-2022 17:00-0400 Body mass index (BMI) [Ratio] 33 kg/m2 DO Ayanna Vicente Work Phone: [facility] 01-15-2022 15:40-0400 Body temperature 97.9 [degF] DO Ayanna Vicente Work Phone: [facility] 01-15-2022 15:40-0400 Diastolic blood pressure 88 mm[Hg] DO Ayanna Vicente Work Phone: [facility] 01-15-2022 15:40-0400 Heart rate 72 /min DO Ayanna Vicente Work Phone: [facility] 01-15-2022 15:40-0400 Respiratory rate 18 /min DO Ayanna Vicente Work Phone: [facility] 01-15-2022 15:40-0400 SaO2% (BldA) [Mass fraction] 95 % DO Ayanna Vicente Work Phone: [facility] 01-15-2022 15:40-0400 Systolic blood pressure 128 mm[Hg] DO Ayanna Vicente Work Phone: [facility] 01-15-2022 05:11-0400 Body weight 107.9 kg DO Ayanna Vicente Work Phone: [facility] 01-13-2022 19:52-0400 Body height 177.8 cm DO Ayanna Vicente Work Phone: [facility] 01-13-2022 19:52-0400 Body mass index (BMI) [Ratio] 34.9 kg/m2 DO Ayanna Vicente Work Phone: [facility] 12-27-2021 11:10-0400 Body height 180.34 cm Ayanna Vicente Other [employer] [facility] [employer] Other 12-27-2021 11:10-0400 Body mass index (BMI) [Ratio] 33.12 kg/m2 Ayanna Vicente Other [facility] Other 12-27-2021 11:10-0400 Body temperature 97.3 [degF] Ayanna Vicente Other [facility] Other 12-27-2021 11:10-0400 Body weight 107.73 kg Ayanna Vicente Other [facility] Other 12-27-2021 11:10-0400 Diastolic blood pressure 82 mm[Hg] Ayanna Vicente Other [facility] Other 12-27-2021 11:10-0400 Respiratory rate 20 /min Ayanna Vicente Other [facility] Other 12-27-2021 11:10-0400 SaO2% (BldA) [Mass fraction] 93 % Ayanna Vicente Other [facility] Other 12-27-2021 11:10-0400 Systolic blood pressure 124 mm[Hg] Ayanna Vicente Other [facility] Other 12-17-2021 12:00-0400 Body height 180.34 cm Ayanna Alf Other [facility] Other 12-17-2021 12:00-0400 Body mass index (BMI) [Ratio] 32.21 kg/m2 Ayanna Alf Other [facility] Other 12-17-2021 12:00-0400 Body weight 104.78 kg Ayanna Alf Other [facility] Other 12-17-2021 12:00-0400 Diastolic blood pressure 56 mm[Hg] Ayanna Milner Other [facility] Other 12-17-2021 12:00-0400 Systolic blood pressure 98 mm[Hg] Ayanna Milner Other [facility] Other 04-04-2021 14:20-0400 Body height 180.34 cm Ayanna Vicente Other [facility] Other 04-04-2021 14:20-0400 Body mass index (BMI) [Ratio] 32.35 kg/m2 Ayanna Vicente Other [facility] Other 04-04-2021 14:20-0400 Body temperature 97.7 [degF] Ayanna Vicente Other [facility] Other 04-04-2021 14:20-0400 Body weight 105.24 kg Ayanna Vicente Other [facility] Other 04-04-2021 14:20-0400 Diastolic blood pressure 70 mm[Hg] Ayanna Vicente Other [facility] Other 04-04-2021 14:20-0400 Respiratory rate 18 /min Ayanna Vicente Other [facility] Other 04-04-2021 14:20-0400 SaO2% (BldA) [Mass fraction] 97 % Ayanna Vicente Other [facility] Other 04-04-2021 14:20-0400 Systolic blood pressure 114 mm[Hg] Ayanna Vicente Other [facility] Other Encounters Encounter Date Encounter Type Care Provider Facility Start: 10-27-2025 ambulatory Sujey X Pat Fernandez y:[facility] Start: 02-28-2025 End: 02-28-2025 ambulatory Som Azul MD Facility:[facility] Start: 02-21-2025 End: 02-21-2025 ambulatory Som Azul MD Facility:[facility] Start: 02-15-2025 End: 02-15-2025 ambulatory Ayanna Vicente DO Work Phone: [facility] Work Phone: Start: 02-15-2025 End: 02-15-2025 Patient encounter procedure Ayanna Vicente DO -[facility] [place] Work Phone: Start: 02-09-2025 Non-patient / Non-visit Cem Azul MD -[employer] Work Phone: Start: 02-08-2025 End: 02-08-2025 ambulatory SUSAN RANDOLPH Facility:[facility] Start: 02-08-2025 End: 02-08-2025 Patient encounter procedure SUSAN RANDOLPH [facility] [place] Start: 01-27-2025 End: 01-27-2025 ambulatory Ayanna Earleabbi DO Work Phone: [facility] Work Phone: Start: 01-27-2025 End: 01-27-2025 Patient encounter procedure Lesli Arevalo MD -[facility] Work Phone: Start: 01-19-2025 End: 01-19-2025 Telephone encounter Moe H Roxane DO Work Phone: [facility] Start: 01-19-2025 End: 01-19-2025 Patient encounter procedure Moe Betts DO -[facility] Work Phone: Start: 01-19-2025 End: 01-19-2025 ambulatory Ayanna Vicente DO Work Phone: [facility] Work Phone: Start: 01-17-2025 Non-patient / Non-visit Lesli Arevalo MD -[facility] Work Phone: Start: 01-17-2025 End: 01-17-2025 ambulatory Som Azul MD Facility: [facility] Start: 01-12-2025 End: 01-12-2025 Office outpatient visit 15 minutes Moe H Roxane DO Work Phone: [facility] Comment on above: Diarrhea, unspecifie d type (Primary Dx) Start: 01-12-2025 End: 01-12-2025 ambulatory MOE H ROXANE Not Available Start: 12-27-2024 End: 12-27-2024 ambulatory Som Azul MD Facility: [facility] Start: 12-20-2024 End: 12-20-2024 ambulatory Som Azul MD Facility: [facility] Start: 12-17-2024 End: 12-17-2024 Patient encounter procedure Zohaib German MD Work Phone: Rheumatology Comment on above: Fibromyalgia (Primar y Dx); Primary osteoarthritis involving multiple joints; Type 2 diabetes mellitus without complication, with long-term current use of insulin (HCC); Long-term use of Plaquenil Start: 12-17-2024 End: 12-17-2024 ambulatory AYANNA VICENTE Facility:[facility] Start: 12-16-2024 End: 12-16-2024 ambulatory [facility] Work Phone: Start: 12-16-2024 End: 12-16-2024 Patient encounter procedure [facility] Work Phone: Start: 11-17-2024 End: 11-17-2024 Telephone encounter Chad Freitas MD Work Phone: [facility] Comment on above: Records faxed Start: 11-10-2024 End: 11-10-2024 ambulatory [facility] Work Phone: Start: 11-10-2024 End: 11-10-2024 Patient encounter procedure [facility] Work Phone: Start: 11-01-2024 Non-patient / Non-visit [facility] Work Phone: Start: 11-01-2024 End: 11-01-2024 ambulatory Som Azul MD Facility:[facility] Start: 10-11-2024 End: 10-11-2024 ambulatory Som Azul MD Facility:[facility] Start: 09-03-2024 End: 09-03-2024 ambulatory Ayanna Vicente Facility:[facility] Start: 09-03-2024 Non-patient / Non-visit Tad Ag DO Work Phone: [facility] Phys[facility] Work Phone: Start: 08-16-2024 End: 08-16-2024 ambulatory SUSAN RANDOLPH Facility:[facility] [place] Start: 08-16-2024 End: 08-16-2024 Patient encounter procedure SUSANCHARLI KHANRY [facility] [place] Start: 08-16-2024 End: 08-16-2024 ambulatory Som Azul MD Facility:[facility] [place] Start: 08-11-2024 End: 08-11-2024 ambulatory Ayanna Sakina DO Work Phone: [facility] Work Phone: Start: 08-11-2024 End: 08-11-2024 Patient encounter procedure Ayanna Vicente DO Work Phone: [facility] Physician [facility] [place] Work Phone: Start: 08-11-2024 Non-patient / Non-visit Ayanna Vicente DO Work Phone: [facility] Physician [facility] Work Phone: Start: 08-10-2024 End: 08-10-2024 ambulatory Ayanna Sakina DO Work Phone: [facility] Work Phone: Start: 08-10-2024 End: 08-10-2024 Departed Referred Ayanna Vicente DO Work Phone: [facility] [place] Work Phone: Start: 08-09-2024 End: 08-09-2024 Office outpatient visit 15 minutes Esvin Dubon [employer] SALES [employer]ISTANT Work Phone: [facility] Comment on above: Cognitive impairment (Primary Dx) Start: 08-09-2024 End: 08-09-2024 ambulatory ESVIN DUBON Not Available Start: 08-09-2024 End: 08-09-2024 Bamboo flowsheet Esvin Dubon PHARMACY SALES ASSISTANT Work Phone: [facility] Start: 08-09-2024 End: 08-09-2024 Bamboo flowsheet Esvin Dubon PHARMACY SALES ASSISTANT Work Phone: [facility] Start: 08-04-2024 End: 08-04-2024 ambulatory ESVIN DUBON Not Available Start: 07-26-2024 End: 07-26-2024 ambulatory Som Azul MD Facility:[facility] Start: 07-12-2024 End: 07-12-2024 ambulatory Som Azul MD Facility:[facility] Start: 06-28-2024 End: 06-28-2024 Bamboo flowsheet Enrique Hammonds PhD Work Phone: [facility] Start: 06-28-2024 End: 06-28-2024 Bamboo flowspieter Hammonds PhD Work Phone: [facility] Start: 06-28-2024 End: 06-28-2024 Patient encounter procedure Enrique Hammonds PhD Work Phone: [facility] Comment on above: Memory loss (Primary Dx); Concentration deficit; Word finding difficulty; Other chronic pain; Family history of dementia Start: 06-28-2024 End: 06-28-2024 ambulatory ENRIQUE HAMMONDS Not Available Start: 06-23-2024 End: 06-23-2024 ambulatory MOE H ITZANNE Not Available Start: 06-23-2024 End: 06-23-2024 Office outpatient visit 15 minutes Moe H Itzkasiatz DO Work Phone: [facility] Comment on above: Diarrhea, unspecifie d type (Primary Dx); Constipation, unspecified constipation type Start: 06-22-2024 End: 06-22-2024 Clinisync Result Encounter Babita Guillaume DO Work Phone: [facility] Unsolicited Start: 06-22-2024 End: 06-22-2024 Clinisync Result Encounter Babita Guillaume DO Work Phone: [facility] External Department Unsolicited Start: 06-22-2024 Non-patient / Non-visit Ayanna Vicente DO Work Phone: [facility] Work Phone: Start: 06-17-2024 End: 06-17-2024 Bamboo flowsheet Primoalicia Tranett DO Work Phone: [facility] Start: 06-17-2024 End: 06-17-2024 Bamboo flowsheet Yaircherie Tranett DO Work Phone: [facility] [address] Start: 06-17-2024 End: 06-17-2024 Office outpatient new 45 minutes Babita Guillaume DO [facility] Comment on above: Cognitive impairment (Primary Dx); Long-term use of high-risk medication Start: 06-17-2024 End: 06-17-2024 ambulatory BABITA GUILLAUME Not Available Start: 06-15-2024 Non-patient / Non-visit Ayanna Vicente DO Work Phone: [facility] Work Phone: Start: 06-15-2024 End: 06-15-2024 ambulatory Tri Vasquez Marker Facility:[facility] Start: 06-15-2024 End: 06-15-2024 Departed Referred Ayanna Vicente DO Work Phone: [facility] Start: 06-14-2024 End: 06-14-2024 ambulatory Som Azul MD [facility] Start: 06-08-2024 End: 06-08-2024 Chart abstracting Zohaib German MD Work Phone: Rheumatology Start: 06-07-2024 End: 06-07-2024 ambulatory Som Azul MD Facility[facility] Start: 05-26-2024 End: 05-26-2024 ambulatory AYANNA VICENTE Facility:[facility] Start: 05-26-2024 Non-patient / Non-visit Ayanna Vicente DO Work Phone: [facility] Work Phone: Start: 05-26-2024 End: 05-26-2024 Office outpatient visit 15 minutes Chad Freitas MD Work Phone: Hematology/Oncology Comment on above: CLL (chronic lymphoc ytic leukemia) (HCC) (Primary Dx) Start: 05-26-2024 End: 05-26-2024 Patient encounter procedure Ayanna Vicente DO Work Phone: [facility] Work Phone: Start: 05-26-2024 End: 05-26-2024 ambulatory Ayanna Vicente DO Work Phone: [facility] Work Phone: Start: 05-18-2024 End: 05-18-2024 Patient encounter procedure DO Ayanna Vicente Work Phone: [facility] Work Phone: Start: 05-18-2024 End: 05-18-2024 ambulatory DO Ayanna Vicente Work Phone: [facility] Work Phone: Start: 05-17-2024 End: 05-17-2024 ambulatory ZOHAIB GERMAN Facility:[facility] Start: 05-17-2024 End: 05-17-2024 Patient encounter procedure Zohaib German MD Work Phone: Rheumatology Comment on above: 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); Fibromyalgia; Type 2 diabetes mellitus without complication, with long-term current use of insulin (HCC) Start: 05-12-2024 End: 05-12-2024 ambulatory DO Ayanna Vicente Work Phone: [facility] Work Phone: Start: 05-12-2024 End: 05-12-2024 Patient encounter procedure DO Ayanna Vicente Work Phone: [facility] Work Phone: Start: 05-11-2024 End: 05-11-2024 ambulatory DO Ayanna Vicente Work Phone: [facility] Work Phone: Start: 05-11-2024 End: 05-11-2024 Patient encounter procedure DO Ayanna Vicente Work Phone: [facility] [place] Work Phone: Start: 05-06-2024 End: 05-06-2024 Patient encounter procedure DO Ayanna Vicente Work Phone: [facility] [place] Work Phone: Start: 05-06-2024 End: 05-06-2024 ambulatory DO Ayanna Vicente Work Phone: [facility] Work Phone: Start: 04-05-2024 End: 04-05-2024 ambulatory [facility] Work Phone: Start: 04-05-2024 End: 04-05-2024 Patient encounter procedure [facility] [place] Work Phone: Start: 03-08-2024 End: 03-08-2024 ambulatory [facility] Work Phone: Start: 03-08-2024 End: 03-08-2024 Patient encounter procedure [facility] [place] Work Phone: Start: 02-24-2024 End: 02-24-2024 ambulatory SUSAN RANDOLPH Facility: [place] Start: 02-24-2024 End: 02-24-2024 Patient encounter procedure [facility]ANDOLPH [facility] Start: 02-05-2024 End: 02-05-2024 ambulatory [facility] Work Phone: Start: 02-05-2024 End: 02-05-2024 Patient encounter procedure [place] [facility] [place] Work Phone: Start: 02-04-2024 Non-patient / Non-visit [facility] Work Phone: Start: 02-03-2024 End: 02-03-2024 ambulatory JAMES SMITH Not Available Start: 01-12-2024 End: 01-12-2024 ambulatory DO Ayanna Vicente Work Phone: [facility] Work Phone: Start: 01-12-2024 End: 01-12-2024 Patient encounter procedure DO Ayanna Vicente Work Phone: [facility] Work Phone: Start: 10-21-2023 End: 10-21-2023 ambulatory DO Ayanna Vicente Work Phone: [facility] Work Phone: Start: 10-21-2023 End: 10-21-2023 Patient encounter procedure DO Ayanna Vicente Work Phone: [facility] [place] Work Phone: Start: 10-20-2023 Non-patient / Non-visit DO Aftab Vicente Work Phone: [facility] Work Phone: Start: 10-17-2023 End: 10-17-2023 ambulatory DO Ayanna Vicente Work Phone: [facility] Work Phone: Start: 10-17-2023 End: 10-17-2023 Patient encounter procedure DO Ayanna Vicente Work Phone: [facility] [place] Work Phone: Start: 10-16-2023 Non-patient / Non-visit DO Aftab id Earlevin Work Phone: [facility] Physician [facility] Work Phone: Start: 10-13-2023 Non-patient / Non-visit DO Aftab Vicente Work Phone: [facility] [employer] Work Phone: Start: 08-28-2023 Bamboo flowsheet James Vazquez Noé reis DPM Work Phone: [facility] Start: 08-28-2023 Bamboo flowsheet James Vazquez Noé reis DPM Work Phone: [facility] Start: 08-28-2023 End: 08-28-2023 Patient encounter procedure James Smith DPM Work Phone: [facility] Comment on above: Onychomycosis (Prima ry Dx); 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); Pain in both feet Start: 08-18-2023 End: 08-18-2023 ambulatory Homa Mckeon Other [facility] Other Start: 08-18-2023 Telephone encounter Homa Mckeon [facility] Start: 08-12-2023 End: 08-12-2023 ambulatory Homa Mckeon Other [facility] Other Start: 08-12-2023 Office outpatient ne w 45 minutes Homa Mckeon [facility] Start: 08-12-2023 End: 08-12-2023 Patient encounter procedure DO Ayanna Vicente Work Phone: [facility]- Start: 07-16-2023 End: 07-16-2023 ambulatory Ayanna Vicente Other [facility] Other Start: 07-16-2023 Telephone encounter Ayanna Vicente [facility] [place] Start: 05-12-2023 End: 05-12-2023 ambulatory Junior Butterfield Other [facility] Other Start: 05-12-2023 Telephone encounter Junior Butterfield [facility] Start: 05-07-2023 End: 05-07-2023 ambulatory Ayanna Vicente Other [facility] Other Start: 05-07-2023 Telephone encounter Ayanna Vicente [facility] [place] Start: 04-29-2023 End: 04-29-2023 ambulatory Ayanna Vicente Other [facility] Other Start: 04-29-2023 Telephone encounter Ayanna Vicente [facility] [place] Start: 04-25-2023 End: 04-25-2023 ambulatory Ayanna Vicente Other [facility] Other Start: 04-25-2023 Telephone encounter Ayanna Vicente [facility] [place] Start: 04-24-2023 End: 04-24-2023 ambulatory DO Ayanna Vicente Work Phone: [facility] Work Phone: Start: 04-24-2023 End: 04-24-2023 Patient encounter procedure DO Ayanna Vicente Work Phone: [facility] [place] Work Phone: Start: 04-22-2023 End: 04-22-2023 ambulatory Ayanna Vicente Other [facility] Other Start: 04-22-2023 Telephone encounter Ayanna Vicente [facility] [place] Start: 04-15-2023 End: 04-15-2023 ambulatory Ayanna Vicente Other [facility] Other Start: 04-15-2023 Office outpatient vi sit 25 minutes Ayanna Vicente [facility] [place] Start: 04-14-2023 End: 04-14-2023 ambulatory Ayanna Vicente Other [facility] Other Start: 04-14-2023 Telephone encounter Ayanna Vicente [facility] [place] Start: 04-09-2023 End: 04-09-2023 ambulatory DO Ayanna Vicente Work Phone: [facility] Work Phone: Start: 04-09-2023 End: 04-09-2023 Patient encounter procedure DO Ayanna Sakina Work Phone: [facility] [place] Work Phone: Start: 02-25-2023 End: 02-25-2023 ambulatory Ayanna Vicente Other [facility] Other Start: 02-25-2023 Office outpatient vi sit 15 minutes Ayanna Vicente [facility] Start: 02-11-2023 End: 02-11-2023 Patient encounter procedure SUSAN RANDOLPH [facility] Start: 02-07-2023 End: 02-07-2023 ambulatory Santos Lares MD Work Phone: Hematology/Oncology Comment on above: CLL (chronic lymphoc ytic leukemia) (HCC) (Primary Dx) Start: 02-07-2023 End: 02-07-2023 Patient encounter procedure Santos Lares MD Work Phone: [facility] Start: 01-16-2023 End: 01-16-2023 ambulatory Ayanna Vicente Other [facility] Other Start: 01-16-[address]23 [address] Vicente [facility] Start: 01-15-2023 End: 01-15-2023 ambulatory Ayanna Vicente Other [facility] Other Start: 01-15-[address] Vicente [facility] Start: 01-07-2023 End: 01-07-2023 ambulatory Ayanna Vicente Other [facility] Other Start: 01-07-2023 Telephone encounter Ayanna Vicente [facility] [place] Start: 01-06-2023 End: 01-06-2023 ambulatory Ayanna Vicente Other [facility] Other Start: 01-06-2023 Telephone encounter Ayanna Vicente [facility] [place] Start: 11-29-[address] AYANNA VICENTE Facilit y:H1 Start: 10-16-2022 End: 10-16-2022 ambulatory Ayanna Vicente Other [facility] Other Start: 10-16-2022 Telephone encounter Ayanna Vicente [facility] [place] Start: 10-02-2022 End: 10-02-2022 ambulatory Ayanna Vicente Other [facility] Other Start: 10-02-2022 Telephone encounter Ayanna Vicente [facility] [place] Start: 09-30-2022 End: 09-30-2022 ambulatory DO Ayanna Vicente Work Phone: [facility] Work Phone: Start: 09-30-2022 End: 09-30-2022 Patient encounter procedure DO Ayanna Vicente Work Phone: [facility] [place] Work Phone: Start: 09-24-2022 End: 09-24-2022 ambulatory DO Ayanna Vicente Work Phone: [facility] Work Phone: Start: 09-24-2022 End: 09-24-2022 Patient encounter procedure DO Ayanna Vicente Work Phone: [facility] [address] Work Phone: Start: 09-02-2022 End: 09-02-2022 ambulatory Ayanna Vicente Other [facility] Other Start: 09-02-2022 Telephone encounter Ayanna Vicente [facility] [place] Start: 08-29-2022 End: 08-29-2022 ambulatory DO Ayanna Vicente Work Phone: [facility] Work Phone: Start: 08-29-2022 End: 08-29-2022 Patient encounter procedure DO Ayanna Vicente Work Phone: [facility] Work Phone: Start: 08-29-2022 End: 08-29-2022 Patient encounter procedure DO Ayanna Vicente Work Phone: [facility] [address] Work Phone: Start: 08-12-2022 End: 08-12-2022 ambulatory DO Ayanna Vicente Work Phone: [facility] Work Phone: Start: 08-12-2022 End: 08-12-2022 Patient encounter procedure DO Ayanna Vicente Work Phone: [facility] Work Phone: Start: 08-05-2022 End: 08-05-2022 ambulatory Ayanna Vicente Other [facility] Other Start: 08-05-2022 Telephone encounter Ayanna Vicente [facility] [place] Start: 08-02-2022 ambulatory Ayanna Vel Vicente Faci [id number] Start: 07-24-2022 End: 07-24-2022 ambulatory DO Ayanna Vicente Work Phone: [facility] Work Phone: Start: 07-24-2022 End: 07-24-2022 Patient encounter procedure DO Ayanna Vicente Work Phone: [facility]-Electrodiagnostics Work Phone: Start: 07-19-2022 Telephone encounter Santos justice MD Work Phone: [facility] Comment [...] encounter procedure Santos Lares MD Work Phone: [facility] Start: 05-31-2022 End: 05-31-2022 ambulatory Ayanna Vicente Other [facility] Other Start: 05-31-2022 Telephone encounter Ayanna Vicente [facility] [place] Start: 05-14-2022 End: 05-14-2022 ambulatory Ayanna Vicente Other [facility] Other Start: 05-14-2022 Telephone encounter Ayanna Vicente [facility] [place] Start: 04-24-2022 End: 04-24-2022 ambulatory Ayanna Vicente Other [facility] Other Start: 04-24-2022 Telephone encounter Ayanna Vicente [facility] Start: 04-23-2022 [address]phone [address] Ayanna Vicente [facility] Start: 04-23-2022 End: 04-23-2022 ambulatory DO Ayanna Vicente Work Phone: [facility] Other Start: 04-23-2022 End: 04-23-2022 Patient encounter procedure DO Ayanna Vicente Work Phone: [facility] [place] Start: 04-18-2022 End: 04-18-2022 ambulatory Santos Lares MD Work Phone: Hematology/Oncology Comment on above: CLL (chronic lymphoc ytic leukemia) (HCC) (Primary Dx) Start: 04-18-2022 End: 04-18-2022 Patient encounter procedure Santos Lares MD Work Phone: [facility] Start: 04-10-2022 End: 04-10-2022 ambulatory Ayanna Vicente Other [facility] Other Start: 04-10-2022 Telephone encounter Ayanna Vicente [facility] [place] Start: 04-05-2022 Telephone encounter Niurka Hood Hematology/Oncology Comment on above: Care Coordination (R esults) Start: 04-04-2022 End: 04-04-2022 ambulatory Santos Lares MD Work Phone: Hematology/Oncology Comment on above: Lymphocytosis (Prima ry Dx) Start: 04-04-2022 End: 04-04-2022 Patient encounter procedure Santos Lares MD Work Phone: [facility] Start: 04-02-2022 End: 04-02-2022 ambulatory Ayanna Vicente Other [facility] Other Start: 04-02-2022 Office outpatient vi sit 40 minutes Ayanna Vicente [facility] [place] Start: 04-01-2022 End: 04-01-2022 Patient encounter procedure DO Ayanna Vicente Work Phone: [facility] [place] Start: 03-26-2022 End: 03-26-2022 ambulatory Ayanna Vicente Other [facility] Other Start: 03-26-2022 Telephone encounter Ayanna Vicente [facility] [place] Start: 03-19-2022 End: 03-19-2022 ambulatory Ayanna Vicente Other [facility] Other Start: 03-19-2022 Telephone encounter Ayanna Vicente [facility] [place] Start: 03-13-2022 End: 03-13-2022 ambulatory Ayanna Vicente Other [facility] Other Start: 03-13-2022 Telephone encounter Ayanna Vicente [facility] [place] Start: 03-08-2022 End: 03-08-2022 ambulatory Ayanna Vicente Other [facility] Other Start: 03-08-2022 Telephone encounter Ayanna Vicente [facility] Start: 03-07-2022 End: 03-07-2022 ambulatory Ayanna Vicente Other [facility] Other Start: 03-07-2022 Telephone encounter Ayanna Vicente [facility] Start: 02-28-2022 End: 02-28-2022 ambulatory Ayanna Vicente Other [facility] Other Start: 02-28-2022 Telephone encounter Ayanna Vicente [facility] [place] Start: 02-21-2022 End: 02-21-2022 ambulatory Ayanna Vicente Other [facility] Other Start: 02-21-2022 Telephone encounter Ayanna Vicente [facility] Start: 02-18-2022 End: 02-18-2022 ambulatory Ayanna Vicente Other [facility] Other Start: 02-18-2022 Telephone encounter Ayanna Vicente [facility] [place] Start: 02-15-2022 End: 02-15-2022 ambulatory Ayanna Vicente Other [facility] Other Start: 02-15-2022 Telephone encounter Ayanna Vicente [facility] [place] Start: 02-11-2022 End: 02-11-2022 ambulatory Ayanna Vicente Other [facility] Other Start: 02-11-2022 Telephone encounter Ayanna Vicente [facility] [place] Start: 02-06-2022 End: 02-06-2022 ambulatory Ayanna Vicente Other [facility] Other Start: 02-06-2022 Office outpatient vi sit 25 minutes Ayanna Vicente [facility] [place] Start: 01-31-2022 End: 01-31-2022 ambulatory Ayanna Vicente Other [facility] Other Start: 01-31-2022 Telephone encounter Ayanna Vicente [facility] [place] Start: 01-15-2022 End: 01-26-2022 Evaluation and management of inpatient DO Ayanna Vicente Work Phone: [facility] Start: 01-13-2022 End: 01-15-2022 Evaluation and management of inpatient DO Ayanna Vicente Work Phone: [facility] Start: 01-07-2022 End: 01-07-2022 ambulatory Ayanna Vicente Other [facility] Other Start: 01-07-2022 Telephone encounter Ayanna Vicente [facility] [place] Start: 12-27-2021 End: 12-27-2021 ambulatory Ayanna Vicente Other [facility] Other Start: 12-27-2021 Office outpatient vi sit 15 minutes Ayanna Vicente [facility] [place] Start: 12-19-2021 End: 12-19-2021 ambulatory Ayanna Vicente Other [facility] Other Start: 12-19-2021 Telephone encounter Ayanna Vicente [facility] [place] Start: 12-18-2021 End: 12-18-2021 ambulatory Ayanna Milner Other [facility] Other Start: 12-18-2021 Telephone encounter Ayanna Milner [facility] Field Technician Start: 12-17-2021 End: 12-17-2021 ambulatory Ayanna Milner Other [facility] Other Start: 12-17-2021 Office outpatient ne w 45 minutes Ayanna Milner [facility] G[facility] Start: 11-12-2021 End: 11-12-2021 ambulatory Ayanna Vicente Other [facility] Other Start: 11-12-2021 Telephone encounter Ayanna Vicente [facility] [place] Start: 10-02-2021 End: 10-02-2021 ambulatory Ayanna Sakina Other [facility] Other Start: 10-02-2021 Telephone encounter Ayanna Vicente [facility] [place] Start: 10-01-2021 End: 10-01-2021 ambulatory Ayanna Vicente Other [facility] Other Start: 10-01-2021 Telephone encounter Ayanna Vicente [facility] [place] Start: 09-17-2021 End: 09-17-2021 ambulatory Ayanna Vicente Other [facility] Other Start: 09-17-2021 Telephone encounter Ayanna Vicente [facility] [place] Start: 09-13-2021 End: 09-13-2021 ambulatory Ayanna Vicente Other [facility] Other Start: 09-13-2021 Telephone encounter Ayanna Vicente [facility] [place] Start: 09-12-2021 End: 09-12-2021 ambulatory Ayanna Vicente Other [facility] Other Start: 09-12-2021 Telephone encounter Ayanna Earleabbi [facility] [place] Start: 07-18-2021 End: 07-18-2021 ambulatory Ayanna Vicente Other [facility] Other Start: 07-18-2021 Telephone encounter Ayanna Sakina [facility] [place] Start: 06-18-2021 End: 06-18-2021 ambulatory Ayanna Vicente Other [facility] Other Start: 06-18-2021 Telephone encounter Ayanna Vicente [facility] [place] Start: 04-24-2021 Telephone encounter Ayanna Vicente [facility] [place] Start: 04-04-2021 Office outpatient vi sit 25 minutes Ayanna Vicente [facility] Start: 02-08-2021 End: 02-08-2021 Orders Only Dale [...] Vicente Work Phone: Urine culture DO Ayanna Young [employer] Work Phone: Plan of Treatment Date Care Activity Detail Author Start: 01-14-2032 Urine microalbumin profile DTaP,Tdap,Td Vaccine (2 - Td or Tdap) [facility] Start: 05-26-2027 Diabetes Screening Diabetes Screenin g [facility] Start: 08-08-2026 Diabetes Screening Diabetes Screenin g [facility] Start: 02-07-2026 DIABETES SCREEN DIABETES SCREEN [facility] Start: 12-19-2025 End: 12-19-2025 Patient encounter procedure 12/19/2025 11:00 AM EDT Office Visit Rheumatology [id number] [place] [address] [place] [id number] [place] [address] Return in about 1 year (around 12/17/2025). Rheumatology Comment on above: Return in about 1 ye ar (around 12/17/2025). Start: 07-19-2025 DIABETES SCREEN DIABETES SCREEN [facility] Start: 03-14-2025 Influenza vaccination Influenza Vacc ine (#1) [facility] Start: 01-28-2025 End: 01-28-2025 Patient encounter procedure 01/28/2025 10:30 AM EDT Office Visit [facility] [address] [facility] [address] [place] [address] Moe Betts DO [address] [facility] [address] [place] [address] [facility] Start: 11-25-2024 End: 11-25-2024 Patient encounter procedure 11/25/2024 11:20 AM EDT Office Visit Rheumatology [address] [place] [address] [place] [id number] [place] [place] [address] 6 month follow up Rheumatology Comment on above: 6 month follow up Start: 11-24-2024 End: 11-24-2024 Follow-up encounter 11/24/2024 10:30 AM EDT Visit (SP) Office Hematology/Oncology [address] [place] [address] Chad Freitas MD [address] [place] [place] [address] 6 month follow up Hematology/Oncology Comment on above: 6 month follow up Start: 11-24-2024 End: 11-24-2024 Patient encounter procedure 11/24/2024 10:15 AM EDT Office Visit [facility] [address] [place] [address] 6 month follow up [facility] Comment on above: 6 month follow up Start: 11-15-2024 End: 11-15-2024 Patient encounter procedure 11/15/2024 11:00 AM EDT Office Visit Rheumatology [address] [place] [address] [place] [address] [facility] [place] [id number] 6 month follow up Rheumatology Comment on above: 6 month follow up Start: 11-10-2024 Patient referral [facility] Work Phone: Start: 09-16-2024 Covid-19 Vaccine ( season) Covid-19 Vaccine () [facility] Start: 09-03-2024 Urine culture [facility] Start: 08-10-2024 Bacteria identified in Urine by Culture Urine Culture [facility] Start: 08-10-2024 End: 08-10-2024 Urine culture [facility] Start: 08-09-2024 End: 08-09-2024 Patient encounter procedure [facility] [address] Comment on above: Arrived Start: 08-04-2024 End: 08-04-2024 Patient encounter procedure 08/04/2024 11:30 AM EST [facility] [address] [facility] [address] [place] [address] [facility] Start: 07-14-2024 Advance Directive Discussion Advance Directive Discussion [facility] Start: 06-28-2024 End: 06-28-2024 Patient encounter [address] [facility] Comment on above: Cognitive impairment Start: 06-23-2024 End: 06-23-2024 Patient encounter procedure 06/23/2024 2:30 PM EST Consult [facility] [address] [facility] [address] [place] [id number] Moe Betts DO [address] [facility] [address] [place] [address] [facility] [address] [facility] Start: 06-17-2024 End: 06-17-2025 Cobalamin (Vitamin B12) [Mass/volume] in Serum or Plasma Vitamin B12 Lab Routine Cognitive impairment Long-term use of high-risk medication Expected: 06/17/2024 (Approximate), Expires: 06/17/2025 [facility] Work Phone: Comment on above: Expected: 06/17/2024 (Approximate), Expires: 06/17/2025 Start: 06-17-2024 End: 06-17-2024 Patient encounter procedure 06/17/2024 2:00 PM EST Office Visit [facility] [address] [address] [place] [id number] Babita Guillaume DO [address] [place] [id number] Arrived [facility] Comment on above: Arrived Start: 06-17-2024 End: 06-17-2025 Thyrotropin [Units/volume] in Serum or Plasma TSH Lab Routine Cognitive impairment Long-term use of high-risk medication Expected: 06/17/2024 (Approximate), Expires: 06/17/2025 [facility] Comment on above: Expected: 06/17/2024 (Approximate), Expires: 06/17/2025 Start: 05-11-2024 Patient referral [facility] Work Phone: Start: 05-06-2024 Bacteria identified in Urine by Culture Urine Culture [facility] Start: 04-05-2024 Patient referral [facility] Work Phone: Start: 02-05-2024 Patient referral [facility] Work Phone: Start: 11-17-2023 End: 11-17-2023 Patient encounter procedure 11/17/2023 1:15 PM EDT Procedure Visit [facility] [address] [place] [id number] James Smith DPM [address] [place] [address] [facility] Start: 04-05-2024 Bacteria identified in Urine by Culture [facility] Start: 08-18-2023 Shingrix Vaccine (2 of 2) Rodriguez grix Vaccine (2 of 2) [facility] Start: 08-10-2023 End: 10-10-2023 CBC W Auto Differential panel - Blood CBC + DIFF Lab Routine CLL (chronic lymphocytic leukemia) (HCC) Expected: 08/10/2023 (Approximate), Expires: 10/10/2023 [facility] Work Phone: Comment on above: Expected: 08/10/2023 (Approximate), Expires: 10/10/2023 Start: 08-10-2023 End: 10-10-2023 Comprehensive metabolic 2000 panel - Serum or Plasma COMP METABOLIC PANEL Lab Routine CLL (chronic lymphocytic leukemia) (HCC) Expected: 08/10/2023 (Approximate), Expires: 10/10/2023 [facility] Work Phone: Comment on above: Expected: 08/10/2023 (Approximate), Expires: 10/10/2023 Start: 07-14-2023 Advance Directive Discussion Advance Directive Discussion [facility] Start: 03-14-2023 Influenza vaccination [facility] Start: 01-16-2023 End: 03-18-2023 CBC W Auto Differential panel - Blood CBC + DIFF Lab Routine CLL (chronic lymphocytic leukemia) (HCC) Expected: 01/16/2023 (Approximate), Expires: 03/18/2023 [facility] Work Phone: Comment on above: Expected: 01/16/2023 (Approximate), Expires: 03/18/2023 Start: 01-16-2023 End: 03-18-2023 Comprehensive metabolic 2000 panel - Serum or Plasma COMP METABOLIC PANEL Lab Routine CLL (chronic lymphocytic leukemia) (HCC) Expected: 01/16/2023 (Approximate), Expires: 03/18/2023 [facility] Work Phone: Comment on above: Expected: 01/16/2023 (Approximate), Expires: 03/18/2023 Start: 08-19-2022 COVID-19 VACCINE (5 - Pfizer series) COVID-19 VACCINE (5 - Pfizer series) [facility] Start: 07-26-2022 End: 08-18-2023 Us breast uni real time with image limited US BREAST LTD LT Radiology Routine Axillary adenopathy Other signs and symptoms in breast Expected: 07/26/2022, Expires: 08/18/2023 [facility] Work Phone: Comment on above: Expected: 07/26/2022 , Expires: 08/18/2023 Start: 07-19-2022 End: 09-18-2022 CBC W Auto Differential panel - Blood CBC + DIFF Lab Routine CLL (chronic lymphocytic leukemia) ([facility]) Expected: 07/19/2022 (Approximate), Expires: 09/18/2022 [facility] Work Phone: Comment on above: Expected: 07/19/2022 (Approximate), Expires: 09/18/2022 Start: 07-19-2022 End: 09-18-2022 Comprehensive metabolic 2000 panel - Serum or Plasma COMP METABOLIC PANEL Lab Routine CLL (chronic lymphocytic leukemia) ([facility]) Expected: 07/19/2022 (Approximate), Expires: 09/18/2022 [facility] Work Phone: Comment on above: Expected: 07/19/2022 (Approximate), Expires: 09/18/2022 Start: 07-19-2022 End: 09-18-2022 Lactate dehydrogenase [Enzymatic activity/volume] in Serum or Plasma LD LACTATE DEHYDRO Lab Routine CLL (chronic lymphocytic leukemia) ([facility]) Expected: 07/19/2022 (Approximate), Expires: 09/18/2022 [facility] Work Phone: Comment on above: Expected: 07/19/2022 (Approximate), Expires: 09/18/2022 Start: 07-14-2022 ADVANCE DIRECTIVE DISCUSSION ADVANCE DIRECTIVE DISCUSSION [facility] Start: 07-14-2022 DEPRESSION ASSESSMENT DEPRESSION ASS ESSMENT [facility] Start: 04-04-2022 End: 06-04-2022 [id number] [Mass/volume] in Serum or Plasma [facility] Work Phone: Comment on above: Expected: 04/04/2022 , Expires: 06/04/2022 Start: 04-04-2022 End: 06-04-2022 Chronic hepatitis differentiation between hepatitis B and C virus panel - Serum or Plasma [facility] Work Phone: Comment on above: Expected: 04/04/2022 , Expires: 06/04/2022 Start: 04-04-2022 End: 06-04-2022 FLOW CYTOMETRY PERIPHERAL BLOOD LEUK/LYMPH (FCLEUK) [facility] Work Phone: Comment on above: Expected: 04/04/2022 , Expires: 06/04/2022 Start: 03-14-2022 Influenza vaccination INFLUENZA (#1) [facility] Start: 01-24-2022 [facility] Start: 01-21-2022 Consultation [facility] Start: 01-15-2022 Hospital admission [facility] Start: 01-15-2022 Referral to clinical curator of collections [facility] Start: 01-15-2022 [facility] Work Phone: Start: 01-13-2022 Hospital admission [facility] Work Phone: Start: 07-27-2021 COVID-19 VACCINE (4 - Booster for Pfizer series) COVID-19 VACCINE (4 - Booster for Pfizer series) [facility] Start: 07-14-2021 ADVANCE DIRECTIVE DISCUSSION ADVANCE DIRECTIVE DISCUSSION [facility] Start: 07-14-2021 DEPRESSION ASSESSMENT DEPRESSION ASS ESSMENT [facility] Start: 03-14-2021 Influenza vaccination INFLUENZA (#1) [facility] Start: 2007 ADVANCE DIRECTIVE DISCUSSION ADVANCE DIRECTIVE DISCUSSION [facility] Start: 2007 BONE DENSITY BONE DENSITY [facility] Start: 2007 PNEUMOCOCCAL: 65+ (1 - PCV) PNEUMOCOCCAL: 65+ (1 - PCV) [facility] Start: 2007 PNEUMOVAX AGE 65 AND OVER WITH 5YR LOOKBACK (#1) PNEUMOVAX AGE 65 AND OVER WITH 5YR LOOKBACK (#1) [facility] Start: 2007 Screening for osteoporosis Bone Density Screening [facility] Start: 1992 Screening for malign ant neoplasm of colon [facility] Start: 1992 SHINGRIX VACCINE (1 of 2) RODRIGUEZ GRIX VACCINE (1 of 2) [facility] Start: 1987 DIABETES SCREEN DIABETES SCREEN [facility] Start: 1961 SHINGRIX VACCINE (1 of 2) RODRIGUEZ GRIX VACCINE (1 of 2) [facility] Start: 1961 Urine microalbumin profile DTAP,TDAP,TD (1 - Tdap) [facility] Start: 1960 Anxiety Screening Anxiety Screening [facility] Start: 1960 Depression Screening Depression Scre ening [facility] Start: 1960 Hepatitis B surface antibody level LDL Cholesterol [facility] Start: 1960 HEPATITIS C SCREENING HEPATITIS C SC REENING [facility] Start: 1954 Adult depression screening assessment DEPRESSION SCREENING [facility] Start: 1954 COVID-19 VACCINE (1) COVID-19 VACCIN E (1) [facility] Start: 1952 Diabetic foot examination Diabetic F oot Exam [facility] Start: 1952 Glaucoma screening Dilated Retinal E xam [facility] Start: 1952 Hepatitis B screening Urine Albumin:Creatinine Ratio [facility] Start: 1948 PNEUMOCOCCAL: 65+ (1 - PCV) PNEUMOCOCCAL: 65+ (1 - PCV) [facility] Start: 1947 Hemoglobin A1c measurement HbA1C [facility] Bacteria identified in Urine by Culture [facility] CBC W Auto Different ial panel - Blood CBC + DIFF Lab Routine Lymphocytosis 04/04/2022 11:[address] [facility] Work Phone: CBC W Auto Different ial panel - Blood COMPLETE BLOOD COUNT AND DIFFERENTIAL Lab Routine CLL (chronic lymphocytic leukemia) (HCC) 05/26/2024 2:[address] [facility] Work Phone: Comprehensive metabo lic 1999 panel - Serum or Plasma [facility] Comprehensive metabo lic 2000 panel - Serum or Plasma [facility] Comprehensive metabo lic 1999 panel - Serum or Plasma [facility] FLOW CYTOMETRY PERIP HERAL BLOOD LEUK/LYMPH (FCLEUK) FLOW CYTOMETRY PERIPHERAL BLOOD LEUK/LYMPH (FCLEUK) Lab Routine Lymphocytosis 04/04/2022 11:[address] [facility] Work Phone: FLOW SLIDE FLOW SLIDE Lab R outine Lymphocytosis 04/04/2022 11:02 AM [facility] Work Phone: Glucose measurement estimated from glycated hemoglobin [facility] Hepatitis B virus co re Ab [Presence] in Serum HEP B CORE AB TOTAL Lab Routine Lymphocytosis 04/04/2022 11:00 AM [facility] Work Phone: Hepatitis B virus noe rface Ab [Presence] in Serum HEP B SURF AB QUAL Lab Routine Lymphocytosis 04/04/2022 11:00 AM [facility] Work Phone: Hepatitis B virus noe rface Ab [Presence] in Serum by Immunoassay HEP B SURF AG SCRN Lab Routine Lymphocytosis 04/04/2022 11:00 AM [facility] Work Phone: Hepatitis C virus Ab [Presence] in Serum HEP C AB IA W/CONF SCRN Lab Routine Lymphocytosis 04/04/2022 11:00 AM [facility] Work Phone: End: 08-18-2023 SONYA SCREENING W NEYDA SONYA SCREENING W NEYDA Radiology Routine Encounter for screening mammogram for malignant neoplasm of breast 1 Occurrences starting 07/19/2022 until 08/18/2023 [facility] Work Phone: Comment on above: 1 Occurrences starti ng 07/19/2022 until 08/18/2023 MG Breast - bilatera l Screening [facility] MG Breast - bilatera l Screening [facility] Patient Education Wrist Fracture (DC) [facility] Work Phone: Patient referral [facility] Work Phone: End: 03-10-2022 Radiologic exam knee complete 4/more views XR KNEE GENERAL 4V AP BOTH/PA BOTH/LAT/MERC BILAT Radiology Routine Pain in both knees, unspecified chronicity 1 Occurrences starting 02/08/2021 until 03/10/2022 [facility] Comment on above: 1 Occurrences starti ng 02/08/2021 until 03/10/2022 End: 03-10-2022 Radiologic examination pelvis 1/2 views XR PELVIS 1V AP Radiology Routine Pain in both knees, unspecified chronicity 1 Occurrences starting 02/08/2021 until 03/10/2022 [facility] Comment on above: 1 Occurrences starti ng 02/08/2021 until 03/10/2022 Renal function 1999 panel - Serum or Plasma [facility] Renal function 1999 panel - Serum or Plasma [facility] Serum fructosamine measurement [facility] Work Phone: Urine culture [facility] Urine culture [facility] US Kidney - bilateral [facility] XR Hip - left 2 Views [facility] XR Knee - left 4 Views [facility] End: 08-18-2023 XR RIBS/CHEST 3V AP RIB/OBLS/CXR LEFT XR RIBS/CHEST 3V AP RIB/OBLS/CXR LEFT Radiology Routine Rib pain 1 Occurrences starting 07/19/2022 until 08/18/2023 [facility] Work Phone: Comment on above: 1 Occurrences starti ng 07/19/2022 until 08/18/2023 [facility] Immunizations Immunization Date Immunization Notes Care Provider Fa cility 03-19-2024 COVID-19 (PFIZER) 12Y and older Ayanna Vicente DO Work Phone: [facility] 03-19-2024 influenza virus vaccine, unspecified formulation SUSAN RANDOLPH [facility] 03-19-2024 influenza, high dose seasonal, preservative-free Ayanna Vicente DO Work Phone: [facility] 06-23-2023 COVID-19 (PFIZER) 12Y and older [facility] 06-23-2023 Pneumococcal Conjuga te Vaccine, 20 valent [facility] 06-23-2023 RSV, preF3, adj, pf [facility] 06-23-2023 zoster vaccine recombinant [facility] 04-15-2023 influenza, high dose seasonal, preservative-free Ayanna Vicente Other [facility] [employer] Other 04-15-2023 Fluzone QIV High-Dos e 65YR+ [facility] 04-15-2023 influenza virus vaccine, unspecified formulation James Smith DPM Work Phone: [facility] 04-22-2022 pneumococcal polysaccharide vaccine, 23 valent Ayanna Vicente Other [facility] 04-18-2022 COVID-19 mRNA Bivale nt Booster (Pfizer) [facility] 01-13-2022 tetanus toxoid, redu paola diphtheria toxoid, and acellular pertussis vaccine, adsorbed Ayanna Vicente Other [facility] 06-01-2021 COVID-19 Vaccine Pfi zer - Documentation Purposes Only Ayanna Vicente Other [facility] 04-25-2021 influenza virus vaccine, unspecified formulation SUSAN JAX [facility] 04-04-2021 influenza, high dose seasonal, preservative-free Ayanna Vicente Other [facility] [employer] Other 04-04-2021 influenza virus vaccine, unspecified formulation DO Ayanna Vicente Work Phone: [facility] 04-04-2021 Influenza, High-dose Seasonal, Quadrivalent, Preservative Free James Smith DPM Work Phone: [facility] 09-01-2020 COVID-19 Vaccine Pfi zer - Documentation Purposes Only Ayanna Vicente Other [facility] 09-01-2020 SARS-CoV-2 (COVID-19 ) mRNA-1273 vaccine SUSAN RANDOLPH [facility] 08-11-2020 COVID-19 Vaccine Pfi zer - Documentation Purposes Only Ayanna Vicente Other [facility] 08-11-2020 SARS-CoV-2 (COVID-19 ) mRNA-1273 vaccine SUSAN RANDOLPH [facility] 03-14-2020 influenza virus vaccine, unspecified formulation SUSAN RANDOLPH [facility] 07-14-2019 pneumococcal conjuga te vaccine, 13 valent [facility] 04-03-2019 influenza virus vaccine, unspecified formulation SUSAN RANDOLPH [facility] 04-03-2019 Seasonal trivalent influenza vaccine, adjuvanted, preservative free [facility] 04-03-2019 pneumococcal polysaccharide vaccine, 23 valent Ayanna Vicente Other [facility] 04-03-2019 influenza, seasonal, injectable Ayanna Vicente Other [facility] 05-25-2018 influenza virus vaccine, unspecified formulation SUSAN RANDOLPH [facility] 05-25-2018 Influenza, injectabl e, Madin Anjelica Canine Kidney, preservative free, quadrivalent [facility] 05-25-2018 influenza, seasonal, injectable Ayanna Vicente Other [facility] 04-22-2018 Kenalog -40 mg Ayanna Vicente Other [facility] Other Payers Date Payer Category Payer Self-pay [id number] 2022 Unknown [id number] 2020 Private Health Insurance [facility] AAR SUPPLEMENT [id number] 2020-Present Indemnity [id number] 2020 Private Health Insurance [id number] 2007 Medicare MEDICARE MEDICAR E A AND B [id number] 2007-Present [place] Medicare [id number] 2007 Medicare [id number] .[id number] 1959 Medicare [id number] 2.16.840.1.083573.19 1959 Unknown [id number] 2.16.840.1.333272.19 1942 Unknown [id number] 2.16.840.1.906794.3.579.2 .356 1942 Unknown [id number] 2.16.840.1.486200.3.579.2 .593 1942 Unknown [id number] 2.16.840.1.125336.3.579.2 .1259 1942 Unknown [id number] 2.16.840.1.732392.3.579.2 .1259 1942 Unknown [id number] 2.16.840.1.925842.3.579.2 .1259 1942 Unknown [id number] 2.16.840.1.562046.3.579.2 .1259 1942 Unknown [id number] 2.16.840.1.214441.3.579.2 .1259 1942 Unknown [id number] 2.16.840.1.695964.3.579.2 .1259 1942 Unknown [id number] 2.16.840.1.233725.3.579.2 .1259 1942 Unknown [id number] 2.16.840.1.494526.3.579.2 .727 1942 Unknown [id number] 2.16.840.1.550469.3.579.2 .727 1942 Unknown [id number] 2.16.840.1.105647.3.579.2 .727 1942 Unknown [id number] 2.16.840.1.465699.3.579.2 .727 1942 Unknown [id number] 2.16.840.1.145653.3.579.2 .196 1942 Unknown [id number] 2.16.840.1.624628.3.579.2 .196 1942 Unknown [id number] 2.16.840.1.191646.3.579.2 .196 1942 Unknown [id number] 2.16.840.1.169175.3.579.2 .196 1942 Unknown [id number] 2.16.840.1.212749.3.579.2 .196 1942 Unknown [id number] 2.16.840.1.275062.3.579.2 .196 1942 Unknown [id number] 2.16.840.1.404911.3.579.2 .196 1942 Unknown [id number] 2.16.840.1.805632.3.579.2 .196 1942 Unknown [id number] 2.16.840.1.791200.3.579.2 .196 1942 Unknown [id number] 2.16.840.1.666950.3.579.2 .196 1942 Unknown [id number] 2.16.840.1.288147.3.579.2 .196 1942 Unknown [id number] 2.16.840.1.937831.3.579.2 .196 Unknown [id number] 2.16.840.1.902489.3.579.2 .531 Unknown [id number] 2.16.840.1.072802.3.579.2 .531 Unknown [id number] 2.16.840.1.589540.3.579.2 .531 Unknown [id number] 2.16.840.1.708129.3.579.2 .531 Unknown [id number] 2.16.840.1.907560.3.579.2 .531 Unknown [id number] 2.16.840.1.420618.3.579.2 .531 Unknown [id number] 2.16.840.1.581525.3.579.2 .531 Social History Date Type Detail Facility Start: 02-20-2004 End: 12-16-2024 Tobacco smoking status NHIS Former smoker [facility] Comment on above: quit smoking in 1984 Start: 07-14-1979 End: 07-14-1999 History of tobacco use Current smoker [facility] Work Phone: Start: 02-20-2004 [facility] Start: 1940 Sex Assigned At Not on file [facility] Start: 02-07-2023 End: 01-12-2025 Sex Assigned At [facility] Start: 1940 Sex Assigned At Female F [facility] Start: 07-14-1979 End: 07-14-1999 History of tobacco use Cigarette Smoker [facility] Start: 04-04-2022 End: 01-12-2025 Cigarettes smoked current (pack per day) - Reported 1.5 [facility] Start: 04-04-2022 End: 12-17-2024 Tobacco use and exposure Smokeless tobacco non-user [facility] Start: 04-04-2022 End: 12-17-2024 Alcohol intake Ex-drinker (finding) [facility] Start: 03-25-2022 End: 04-18-2022 Exposure to SARS-CoV-2 (event) Not sure [facility] Adult Depression Screening Assessment 0 [facility] Comment on above: quit smoking in 1984 Start: 12-07-2022 Tobacco smoking stat us OHIS Never smoked tobacco [facility] Start: 08-21-2023 End: 01-12-2025 Alcohol intake Current drinker of alcohol (finding) [facility] Start: 12-07-2022 Alcohol Comment Alcohol: 1-2 d rinks occasionally. Caffeine: 3-4 cups/day coffee [facility] Start: 05-27-2024 End: 12-16-2024 Sex Female (finding) [facility] Sexual Orientation [facility] [place] Medical Equipment Procedure Code Equipment Code Equipment [...] ALLOGRAFT FUSELO X LUMBAR FDA Start: 03-24-2017 Cecilia One Level Deformity FDA Start: 03-24-2017 CANCELLOUS [...] ALLOGRAFT FUSELO X LUMBAR FDA Start: 03-24-2017 Cecilia One Level Deformity FDA Start: 03-24-2017 CANCELLOUS [...] ALLOGRAFT FUSELO X LUMBAR FDA Start: 03-24-2017 Cecilia One Level Deformity FDA Start: 03-24-2017 CANCELLOUS [...] ALLOGRAFT FUSELO X LUMBAR FDA Start: 03-24-2017 Cecilia One Level Deformity FDA Start: 03-24-2017 CANCELLOUS [...] ALLOGRAFT FUSELO X LUMBAR FDA Start: 03-24-2017 Cecilia One Level Deformity FDA Start: 03-24-2017 CANCELLOUS [...] ALLOGRAFT FUSELO X LUMBAR FDA Start: 03-24-2017 Cecilia One Level Deformity FDA Start: 03-24-2017 CANCELLOUS [...] ALLOGRAFT FUSELO X LUMBAR FDA Start: 03-24-2017 Cecilia One Level Deformity FDA Start: 03-24-2017 CANCELLOUS [...] ALLOGRAFT FUSELO X LUMBAR FDA Start: 03-24-2017 Cecilia One Level Deformity FDA Start: 03-24-2017 CANCELLOUS [...] ALLOGRAFT FUSELO X LUMBAR FDA Start: 03-24-2017 Cecilia One Level Deformity FDA Start: 03-24-2017 CANCELLOUS [...] ALLOGRAFT FUSELO X LUMBAR FDA Start: 03-24-2017 Cecilia One Level Deformity FDA Start: 03-24-2017 CANCELLOUS [...] ALLOGRAFT FUSELO X LUMBAR FDA Start: 03-24-2017 Cecilia One Level Deformity FDA Start: 03-24-2017 CANCELLOUS [...] ALLOGRAFT FUSELO X LUMBAR FDA Start: 03-24-2017 Cecilia One Level Deformity FDA Start: 03-24-2017 CANCELLOUS [...] ALLOGRAFT FUSELO X LUMBAR FDA Start: 03-24-2017 Cecilia One Level Deformity FDA Start: 03-24-2017 CANCELLOUS [...] ALLOGRAFT FUSELO X LUMBAR FDA Start: 03-24-2017 Cecilia One Level Deformity FDA Start: 03-24-2017 CANCELLOUS [...] ALLOGRAFT FUSELO X LUMBAR FDA Start: 03-24-2017 Cecilia One Level Deformity FDA Start: 03-24-2017 CANCELLOUS [...] ALLOGRAFT FUSELO X LUMBAR FDA Start: 03-24-2017 Cecilia One Level Deformity FDA Start: 03-24-2017 CANCELLOUS [...] ALLOGRAFT FUSELO X LUMBAR FDA Start: 03-24-2017 Cecilia One Level Deformity FDA Start: 03-24-2017 CANCELLOUS [...] ALLOGRAFT FUSELO X LUMBAR FDA Start: 03-24-2017 Cecilia One Level Deformity FDA Start: 03-24-2017 CANCELLOUS [...] ALLOGRAFT FUSELO X LUMBAR FDA Start: 03-24-2017 Cecilia One Level Deformity FDA Start: 03-24-2017 CANCELLOUS [...] ALLOGRAFT FUSELO X LUMBAR FDA Start: 03-24-2017 Cecilia One Level Deformity FDA Start: 03-24-2017 CANCELLOUS [...] ALLOGRAFT FUSELO X LUMBAR FDA Start: 03-24-2017 Cecilia One Level Deformity FDA Start: 03-24-2017 CANCELLOUS [...] ALLOGRAFT FUSELO X LUMBAR FDA Start: 03-24-2017 Cecilia One Level Deformity FDA Start: 03-24-2017 CANCELLOUS [...] ALLOGRAFT FUSELO X LUMBAR FDA Start: 03-24-2017 Cecilia One Level Deformity FDA Start: 03-24-2017 CANCELLOUS [...] ALLOGRAFT FUSELO X LUMBAR FDA Start: 03-24-2017 Cecilia One Level Deformity FDA Start: 03-24-2017 CANCELLOUS [...] ALLOGRAFT FUSELO X LUMBAR FDA Start: 03-24-2017 Cecilia One Level Deformity FDA Start: 03-24-2017 CANCELLOUS [...] ALLOGRAFT FUSELO X LUMBAR FDA Start: 03-24-2017 Cecilia One Level Deformity FDA Start: 03-24-2017 CANCELLOUS [...] ALLOGRAFT FUSELO X LUMBAR FDA Start: 03-24-2017 Cecilia One Level Deformity FDA Start: 03-24-2017 CANCELLOUS [...] ALLOGRAFT FUSELO X LUMBAR FDA Start: 03-24-2017 Cecilia One Level Deformity FDA Start: 03-24-2017 CANCELLOUS [...] 08-16-2024 Functional Status N/A [facility] 02-24-2024 Functional Status N/A [facility] 02-11-2023 Functional Status N/A [facility] 01-26-2022 Functional status Patient is Pro gressing Toward [facility] Work Phone: Mental Status Date Assessment Result Facility 01-26-2022 Cognitive function Cognitive Sta tus Patient at [facility] Work Phone: Clinical Notes 04-04-2021 to 02-08-2025 Telephone Encounter - Moe Betts, DO - 01/19/2025 4:35 PM EDTTelephone Encounter - Moe Betts, DO - 01/19/2025 4:35 PM EDTFredric Edison Betts, DO - 01/12/2025 1:30 PM EDT Note [...] your health care provider. General instructions Take yecl-otr-[id number] and prescription medicines only as told by [...] provider. Document Revised: 03/19/2021 Document Reviewed: 03/19/2021 [employer] Patient Education 2023 [employer] (formerly [employer] Follow Up Care 08/16/2024 09:56:41 With:Follow up in Spring Address:Unknown When: Unknown [facility] [place] 02-08-2025 Note Patient Education Obstetrics and Gynecology [...] health care provider. General instructions ??? Take mwmo-get-[id number] and prescription medicines only as told by [...] drink, and whe (more content not included)... The [facility] 01-19-2025 Telephone encounter Note Marci had an [...] to her medications. I'll see her PRN. [facility] 01-19-2025 Miscellaneous Notes Marci had [...] see her PRN. documented in this encounter [facility] 01-12-2025 History of Present illness Narrative Images from the original note were not included. Kathy Washburn 1940 Kathy Washubrn is a 84 y.o. 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 Caffeine: 3-4 cups/day coffee Past Surgical History: Procedure Laterality Date BACK SURGERY 2016 COLONOSCOPY 2013 COLONOSCOPY 2002 JOINT REPLACEMENT Left 08/2011 knee replacement; Dr. Haque JOINT REPLACEMENT Right 2010 knee replacement OTHER SURGICAL HISTORY 1999 fissure repair [place] REPAIR SLIDING INGUINAL HERNIA Hernia, inguinal TOTAL [...] have been made. documented in this encounter [facility] 12-17-2024 History of Present illness Narrative Images from the original note were not included. Rheumatology Outpatient Clinic Date of Service: 12/17/2024 Patient: Kathy Washburn Medical Record: [id number] Primary Care Physician: Ayanna Vicente DO Last [...] status and she is working with a rn disease management. There have not been any new health [...] Reviewed on 05/26/2024 Name Date COVID-19 vaccine (SlideShare) 03/19/2024, 06/23/2023 COVID-19 vaccine, bivalent (SlideShare) 04/18/2022 COVID-19 vaccine, monovalent (SlideShare) 06/01/2021, 09/01/2020, 08/11/2020 Physical Exam GENERAL APPEARANCE: [...] which included preparing to see the patient, uxlt-ht-azly patient care, completing clinical documentation, obtaining and/or [...] Time: 10:27 AM documented in this encounter [facility] 12-17-2024 Note HNO ID: [id number] Author: ZOHAIB GERMAN MD Service: ? Author Type: Physician Type: Progress Notes Filed: 12/17/2024 10:49 Note Text: Rheumatology Outpatient Clinic Date of Service: 12/17/2024 Patient: Kathy Washburn Medical Record: [id number] Primary Care Physician: Ayanna Vicente DO Last [...] status and she is working with a rn disease management. There have not been any new health [...] History FAMILY HISTORY (more content not included)... [facility] 12-16-2024 Evaluation note Diagnosis Onset Date Resolution [...] 27, 2025 1:47pm Hyperkalemia acute January 27, 1:47pm Hypertensive chronic kidney disease with stage [...] 2025 2:43pm Diabetes chronic February 15 2:43pm [facility] Work Phone: 1(219) 912-538005-07-2025 Telephone encounter Note* Telephone Encounter - Susan Caballero - 11/17/2024 2:35 PM EDT Records faxed to Dr. Silva [phone]. I called Roxie to let her know they were faxed. [facility]05-07-2025 Miscellaneous Notes* Telephone Encounter - Susan Caballero - 11/17/2024 2:35 PM EDT Records faxed to Dr. Silva [phone]. I called Roxie to let her know they were faxed. * Telephone Encounter - Lori Renner - 11/17/2024 11:[address] Zena DREW Received a call from patient caregiver Roxie Bhagat. She stated that patient would like to cancel her upcoming appointment with Dr Paredes on 11/24 due to patient is going to be following with Dr Silva @ [facility] as this is closer to home for patient. Roxie requested to talk to medical records regarding having records sent to Dr Silva transferred call To Heather Todd. Lori Callahan [facility] Telephone encounter Note * Telephone Encounter - Lori Renner - 11/17/2024 11:[address] Zena DREW Received a call from patient caregiver Roxie Bhagat. She stated that patient would like to cancel her upcoming appointment with Dr Paredes on 11/24 due to patient is going to be following with Dr Silva @ [facility] as this is closer to home for patient. Roxie requested to talk to medical records regarding having records sent to Dr Silva transferred call To Heather Todd. Lori Callahan [facility]04-30-2025 Evaluation note* Author Ayanna Vicente [facility] Authored November 10, 2024 4:5 1pm The above note written by __ _Melanie Conde____ acting as human recorder, note dictated by Dr. Slater .I performed the above HPI, ROS, and Examination. I formulated and dictated the treatment plan and was present for entire encounter. Ayanna Vicente D.O. [facility] Work Phone: 1([phone]) 145-551204-30-2025 Hospital Discharge instructionsAmbulatory Orders* Referral to Hematology Time Frame: 11/10/24, Location: None Selected * Referral to Nephrology Time Frame: 11/10/24, Location: None Selected [facility] Work Phone: 1(286) 644-292502-03-2025 Hospital Discharge instructions Patient Education 08/16/2024 10:04:56 [...] provider. Document Revised: 01/28/2023 Document Reviewed: 01/28/2023 [employer] Patient Education 2023 Gradible (formerly [employer]savers). Follow Up Care 08/11/2024 14:41:18 With:JAX BECKMAN, SUSAN Miller, URL Address: [address] [place] [address] [facility] [place] [address] When:Within 6 Month(s) [facility] 02-03-2025 NotePatient Education Caregiving Antibiotic Medicine, [...] ??? You have sig (more content not included)...[facility] 08-11-2024 Evaluation note* Author Ayanna Vicente [facility] Authored August 11, 2024 1 :46pm The above note written by __ _Melanie Conde____ acting as human recorder, note dictated by Dr. Slater .I performed the above HPI, ROS, and Examination. I formulated and dictated the treatment plan and was present for entire encounter. Ayanna Vicente D.O. [facility] Work Phone: 1(148) 879-548601-27-2025 History of Present illness Narrative* Esvin Dubon, PHARMACY SALES ASSISTANT - 08/09/2024 2:20 PM EST Images from the original note were not included. Chief Complaint Patient presents with Cognitive Impairment Subjective Kathy Washburn, 84 y.o., female Patient is here [...] replacement OTHER SURGICAL HISTORY 1999 fissure repair [place] REPAIR SLIDING INGUINAL HERNIA Hernia, inguinal TOTAL [...] oriented to person, place and time. Previous [place] cognitive assessment: Language is fluent without aphasia. [...] , wrist extensors , wrist flexor , events director strength 5/5. LUE Strength deltoid , biceps , triceps , wrist extensors , wrist flexor , events director strength 5/5. RLE Strength illopsoas, quadriceps, tibialis [...] knee reflex 0. Hdz's sign negative. Coordination: Rnrpel-am-tocv testing is normal Rapid alternating movements are [...] (wnl), B12 721 Del[place] cognitive assessment at [facility] on 06/17/2024: 29/30 MRI of the brain at [facility] on 07/04/18: Mild age-related changes and atrophy [...] of mental health issues [id number] History of Present illness Narrative* Enrique Hammonds, [...] No history of alcohol/substance abuse. Reformed smoker. Que[place] language Citizen [place]. Completed a master's degree. 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 and currently lives alone. Because of one child living out of state. MEDICAL HISTORY/MEDICATION: Past Medical History: Diagnosis Date Hernia, inguinal History of insulin dependent diabetes mellitus IDDM History of left knee replacement History of right knee joint replacement 2010 Leukemia ([facility]) Neuropathy IDDM MEDICATIONS: Current Outpatient Medications Medication [...] PRN incontinence, #90 tab(s), Refills(s) 3, Pharmacy: [facility], 178, cm, 02/11/23 11:43:00 EDT, Height/Length [...] of this individual. Please contact me with anyquestions at [phone]. documented in this [facility] [id number] History of Present illness Narrative* Moe Betts, [...] replacement OTHER SURGICAL HISTORY 1999 fissure repair [place] REPAIR SLIDING INGUINAL HERNIA Hernia, inguinal TOTAL [...] to have the scope. documented in [facility] [id number] History of Present illness Narrative* Babita Guillaume [...] replacement OTHER SURGICAL HISTORY 1999 fissure repair [place] REPAIR SLIDING INGUINAL HERNIA Hernia, inguinal TOTAL [...] , wrist extensors , wrist flexor , events director strength 5/5. LUE Strength deltoid , biceps , triceps , wrist extensors , wrist flexor , events director strength 5/5. RLE Strength illopsoas, quadriceps, tibialis [...] knee reflex 0. Hdz's sign negative. Coordination: Ctzwka-tp-uszd testing and rapid alternating movements are normal Gait: Normal Review and summary of old records: Delonte cognitive assessment at [facility] on 06/17/2024: Assessment/Plan Diagnoses and [...] of mental health issues documented in [facility] [id number] NoteHNO ID: [id number] Author: YOUNG HERRERA LPN Service: ? Author Type: LICENSED NURSE Type: Progress Notes Filed: 06/08/2024 13:05 Note Text: Eye exam for Plaquenil toxicity received from [facility] . Exam date was 06/07/2024. Exam shows no signs of Plaquenil toxicity. Forms sent for scanning.[facility]11-26-2024 History of Present illness Narrative* Young Herrera LPN - 06/08/2024 1:05 PM EST Eye exam for Plaquenil toxicity received from [facility] . Exam date was 06/07/2024. Exam shows no signs of Plaquenil toxicity. Forms sent for scanning. documented in this encounterC[facility]11-[facility]24 Instructions* Patient Instructions* Chad Freitas MD - 05/26/2024 2:09 PM EST Labs today F/u in 6 months documented in this encounterCleveland [facility]11-13-2024 History of Present illness Narrative* Chad Freitas MD - 05/26/2024 2:00 PM EST Images from the original note were not included. PATIENT NAME: Kathy Washburn CLINIC NO.: [id number] ATTENDING PHYSICIAN: Chad Freitas MD DATE OF [...] sweats - Did mammogram last week at [facility]. - Scheduled to see Fitting Room Attendant PAST MEDICAL HISTORY Diagnosis Date Depression Diabetes [...] Range Status 08/08/2023 2.0 % Final Abs Charlotte Date Value Ref Range Status 08/08/2023 0.39 [...] do not hesitate to contact me at [phone]. Chad Freitas MD Hematology/Medical Oncology [facility] spent a total of 20 minutes on the date of the service which included preparing to see the patient, josv-yw-qgiw patient care, completing clinical documentation, obtaining and/or reviewing separately obtained history, counseling and educating the patient/family/caregiver, and ordering medications, tests, or procedures. CC: Ayanna Vicente DO documented in this encounterCleveland Clinic [facility]11-13-2024 NoteHNO ID: [id number] Author: CHAD FREITAS MD Service: ? Author Type: Physician Type: Progress Notes Filed: 05/26/2024 14:41 Note Text: PATIENT NAME: Kathy Washburn [facility] NO.: [id number] ATTENDING PHYSICIAN: Chad Freitas MD DATE OF [...] sweats - Did mammogram last week at [facility]. - Scheduled to see Fitting Room Attendant PAST MEDICAL HISTORY Diagnosis Date Depression Diabetes [...] Date Value Ref Range (more content not included)...[facility] 05-17-2024 NoteHNO ID: [id number] Author: ZOHAIB GERMAN MD Service: ? Author Type: Physician Type: Progress Notes Filed: 05/17/2024 13:34 Note Text: Rheumatology Outpatient Clinic Date of Service: 05/17/2024 Patient: Kathy Washburn Medical Record: [id number] Primary Care Physician: Ayanna C Girvin, DO Last Rheumatology visit: None at [facility] Referring Provider: No referring provider defined [...] unit/mL injection Inject subcutaneously (more content not included)...[facility]11-04-2024 History of Present illness Narrative* Zohaib German MD - 05/17/2024 12:56 PM EST Images from the original note were not included. Rheumatology Outpatient Clinic Date of Service: 05/17/2024 Patient: Kathy Washburn Medical Record: [id number] Primary Care Physician: Ayanna Vicente DO Last Rheumatology visit: None at [facility] Referring Provider: No referring provider defined [...] Reviewed on 07/19/2022 Name Date COVID-19 vaccine (SlideShare) 03/19/2024, 06/23/2023 COVID-19 vaccine, bivalent (GigaMedia-BIONTECH) 04/18/2022 COVID-19 vaccine, monovalent (PFIZER-BIONTECH) 06/01/2021, 09/01/2020, [...] without complication, with long-term current use of insulin([facility]) Plan Orders this visit: Office [...] which included preparing to see the patient, ocds-bz-jcft patient care, completing clinical documentation, obtaining and/or [...] 2024 Time: 12:56 PM documented in this encounterCleveland [facility]10-29-2024 Hospital Discharge instructionsAmbulatory Orders* Referral to Neurology Time Frame: 05/11/24, Location: [facility] Work Phone: 1(198) 328-603408-26-2024 Evaluation note* Author Ayanna Vicente [facility] Authored March 08, 2024 3: 24pm The above note written by __ _Melanie Conde____ acting as human recorder, note dictated by Dr. Slater .I performed the above HPI, ROS, and Examination. I formulated and dictated the treatment plan and was present for entire encounter. Ayanna Vicente D.O. Author Ayanna Vicente [facility] Authored February 05, 2024 9:11 am The above note written by __ _Melanie Conde____ acting as human recorder, note dictated by Dr. Slater .I performed the above HPI, ROS, and Examination. I formulated and dictated the treatment plan and was present for entire encounter. Ayanna Vicente D.O. [facility] Work Phone: [phone] Evaluation note* Author Ayanna [facility] Authored March 08, 2024 3: 24pm The above note written by __ _Melanie Conde____ acting as human recorder, note dictated by Dr. Slater .I performed the above HPI, ROS, and Examination. I formulated and dictated the treatment plan and was present for entire encounter. Ayanna Vicente D.O. Author [facility] Authored April 05, 2024 10:47am The above note written by __ _Melanie Conde____ acting as human recorder, note dictated by Dr. Slater .I performed the above HPI, ROS, and Examination. I formulated and dictated the treatment plan and was present for entire encounter. Ayanna Vicente D.O. [facility] Work Phone: [phone] Evaluation note* Author Ayanna [facility] Authored March 08, 2024 3: 24pm The above note written by __ _Melanie Conde____ acting as human recorder, note dictated by Dr. Slater .I performed the above HPI, ROS, and Examination. I formulated and dictated the treatment plan and was present for entire encounter. Ayanna Vicente D.O. Author [facility] Authored May 11, 2024 3 :30pm The above note written by __ _Melanie Conde____ acting as human recorder, note dictated by Dr. Slater .I performed the above HPI, ROS, and Examination. I formulated and dictated the treatment plan and was present for entire encounter. Ayanna Vicente D.O. Author [facility] Authored April 05, 2024 10:47am The above note written by __ _Melanie Conde____ acting as human recorder, note dictated by Dr. Slater .I performed the above HPI, ROS, and Examination. I formulated and dictated the treatment plan and was present for entire encounter. Ayanna Vicente D.O. [facility] Work Phone: 1([phone]) 262-867808-26-2024 Evaluation note* Author Ayanna [facility] Authored March 08, 2024 2: 24pm The above note written by __ _Melanie Conde____ acting as human recorder, note dictated by Dr. Slater .I performed the above HPI, ROS, and Examination. I formulated and dictated the treatment plan and was present for entire encounter. Ayanna Vicente D.O. Author [facility] Authored May 11, 2024 2 :30pm The above note written by __ _Melanie Conde____ acting as human recorder, note dictated by Dr. Slater .I performed the above HPI, ROS, and Examination. I formulated and dictated the treatment plan and was present for entire encounter. Ayanna Vicente D.O. Author [facility] Authored April 05, 2024 9:47am The above note written by __ _Melanie Conde____ acting as human recorder, note dictated by Dr. Slater .I performed the above HPI, ROS, and Examination. I formulated and dictated the treatment plan and was present for entire encounter. Ayanna Vicente D.O. [facility] Work Phone: [phone]) 243-372408-13-2024 Hospital Discharge instructions Patient Education 02/24/2024 10:42:26 [...] your health care provider. General instructions Take jrrc-pts-ogqcbei and prescription medicines only as told by [...] provider. Document Revised: 03/19/2021 Document Reviewed: 03/19/2021 [employer] Patient Education 2022 Gradible (formerly gradsavers). Follow Up Care 02/11/2023 12:11:14 With:SUSAN RANDOLPH PA-C, URL Address: [address] [place] [address] [phone] When: Unknown Comments:6 mos (no labs) [facility] 08-13-2024 NotePatient Education Obstetrics and Gynecology [...] health care provider. General instructions ? Take qhkc-psh-vnbuvga and prescription medicines only as told by [...] help your health care (more content not included)...[facility]07-25-2024 Evaluation note* Author Ayanna Vicente [facility] Authored February 05, 2024 9:11 am The above note written by __ _Melanie Conde____ acting as human recorder, note dictated by Dr. Slater .I performed the above HPI, ROS, and Examination. I formulated and dictated the treatment plan and was present for entire encounter. Ayanna Vicente D.O. [facility] Work Phone: 1(156) 307-302604-09-2024 Evaluation note* Author Ayanna Vicente [facility] Authored October 21, 2023 4:11 pm The above note written by __ _Melanie Conde____ acting as human recorder, note dictated by Dr. Slater .I performed the above HPI, ROS, and Examination. I formulated and dictated the treatment plan and was present for entire encounter. Ayanna Vicente D.O. [facility] Work Phone: 1([phone]) 882-654902-15-2024 History of Present illness Narrative* James Smith, [...] 150 Interested in diabetic shoes/inserts Dispensed Kandy Michelle in Purple, size 11 M on 04/11/22. [...] open areas were noted. documented in this encounterMer[facility] [id number] Evaluation note* Encounter Date Diagnosis Assessment Notes [...] patient to [facility] for aqua therapy. Discuss with primary care physician, Dr. Vicente, about prescribing a steroid prednisone for temporary relief during the patient's cruise, in the event unable to see painmanagment before vacation. Order a lidocaine patch for the patient to use on the sacroiliac and hip area for pain relief.Recommend xhjz-blm-qowbvko Thermacare or heat patches to use alongside the lidocaine patch. 3. 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 Monitor the degeneration and consider a preventative approach. Encourage the patient to take Tylenol arthritis for overall help. 4. Bone density: - Plan: Dexa scan within normal limits. Jul, Pain in left hip (ICD-10 - M25.552) Jul, Sacroiliac inflammation (ICD-10 - M46.1) Jul, Cervical pain (ICD-10 - M54.2) Jul, DDD (degenerative disc disease), lumbar (ICD-10 - M51.36) [facility] Other 01-03-2024 Evaluation note* Encounter Date Diagnosis [...] She will continue to monitor her memory. [facility] Other 10-03-2023 Evaluation note* Encounter Date Diagnosis [...] s he has about immunizations were answered. [facility] Other 10-02-2023 Evaluation note* Encounter Date Diagnosis Assessment Notes Treatment Notes Treatment Clinical Notes Apr, Insomnia (ICD-10 - G47.00) Apr, Neuropathy (ICD-10 - G62.9) [facility] Other 08-15-2023 Evaluation note* Encounter Date Diagnosis [...] Feb, Lumbar disc disease (ICD-10 - M51.9) [facility] Other 08-01-2023 Hospital Discharge instructions Patient Education [...] your health care provider. General instructions Take ulji-deh-nhrbxip and prescription medicines only as told by [...] provider. Document Revised: 03/19/2021 Document Reviewed: 03/19/2021 [employer] Patient Education 2022 [employer] (formerly [employer]savers). Follow Up Care 01/23/2023 15:26:59 With:SUSAN RANDOLPH PA-C, URL Address: [facility] [place] [address] When: Unknown [facility] 07-28-2023 History of Present illness Narrative* Santos Lares MD - 02/07/2023 1:38 PM EDT Images from the original note were not included. PATIENT NAME: Kathy Washburn CLINIC NO.: [id number] ATTENDING PHYSICIAN: Santos Lares MD DATE OF [...] Range Status 07/19/2022 5.0 % Final Abs Charlotte Date Value Ref Range Status 07/19/2022 0.84 [...] do not hesitate to contact me at [phone]. Santos Lares MD Hematology/Medical Oncology [facility] spent a total of 30 minutes on the date of the service which included preparing to see the patient, izms-am-shvh patient care, completing clinical documentation, obtaining and/or reviewing separately obtained history, counseling and educating the patient/family/caregiver, and ordering medications, tests, or procedures. CC: Ayanna Vicente DO documented in this encounterCleveland [facility]06-27-2023 Evaluation note* Encounter Date Diagnosis Assessment [...] prescription of Cipro when she was in [place], she finds that her symptoms seem to happen when she is traveling. We discussed her seeing Dr. El for evaluation due to recurrent urine infections. She voices that she has not contacted that office but will do this. Dec, Other 1:43 PM - 1:59 PM [facility] Other 06-26-2023 Evaluation note* Encounter Date Diagnosis Assessment Notes Treatment Notes Treatment Clinical Notes Dec, Hyperlipidemia (ICD-10 - E78.5) [facility] Other 04-05-2023 Evaluation note* Encounter Date Diagnosis Assessment Notes Treatment Notes Treatment Clinical Notes Oct, Neuropathy (ICD-10 - G62.9) [facility] Other 03-22-2023 Evaluation note* Encounter Date Diagnosis Assessment Notes Treatment Notes Treatment Clinical Notes Sep, Insomnia (ICD-10 - G47.00) [facility] Other 03-22-2023 Evaluation note* Encounter Date Diagnosis [...] to see her blood sugars below 90. [place] sugar readings are in the 120's. She [...] discussion for her to have with her crate repairer. Sep, Insomnia (ICD-10 - G47.00) We discussed [...] has not driven past any local towns ([facility]). She did have a cardiac work up [...] abuse treatments are being prescribed. Sep, Other alf (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 therapy (ICD-10 - Z79.899) Sep, [...] had an MRI of her neck done. [facility] Other 01-09-2023 Miscellaneous Notes* Telephone Encounter - Santos Lares MD - 07/22/2022 12:41 PM EST Thanks * Telephone Encounter - Lori Monzon [facility] - 07/22/2022 11:[address] Ly office to check on this referral spoke with Leola. She states they did receive this referral and when they called patient and offered her an appointment on 08/14 patient declined appointment and stated she would call her PCP. Lori Monzon [facility] I had already called [facility] office before [...] RN * Telephone Encounter - Susan Todd [facility] - 07/19/2022 2:21 PM EST Records faxed to Dr. Ly. * Telephone Encounter - Susana Grant - 07/19/2022 1:21 PM EST Referral to Dr. Ly for Right ear pain. Heather/Royer: Can you please send information and follow up? Manuel Romero put information in your mailbox forreferral. Thank you! Susana Grant documented [facility] History of Present illness Narrative* Santos Lares MD - 07/19/2022 12:34 PM EST PATIENT NAME: Kathy Washburn CLINIC NO.: [id number] ATTENDING PHYSICIAN: Santos Lares MD DATE OF [...] 11.45 (H) 1.00 - 4.00 k/uL Final Charlotte% Date Value Ref Range Status 07/19/2022 5.0 % Final Abs Charlotte Date Value Ref Range Status 07/19/2022 0.84 [...] do not hesitate to contact me at [phone]. Santos Lares MD Hematology/Medical Oncology [facility] spent a total of 30 minutes on the date of the service which included preparing to see the patient, [id number] patient care, completing clinical documentation, obtaining and/or reviewing separately obtained history, counseling and educating the patient/family/caregiver, and ordering medications, tests, or procedures. Medical Decision Making: Medical Decision Making Level: 1 - N/A CC: Ayanna Vicente DO documented in this encounterC[facility]-06-[facility]23 Nurse Note* Lluvia Samuel MA - 07/19/2022 12:20 PM EST Patient would like to ask you about her right ear, it is painful to touch, her head also hurts and also has Left side pain. Lluvia Saumel MA documented in this encounterC[facility]11-18-[facility]22 Evaluation note* Encounter Date Diagnosis Assessment Notes Treatment Notes Treatment Clinical Notes May, Cystitis (ICD-10 - N30.90) [facility] Other 10-11-2022 Evaluation note* Encounter Date Diagnosis Assessment Notes Treatment Notes Treatment Clinical Notes Apr, BMI 31.0-31.9,adult (ICD-10 - Z68.31) [place] [facility] Other 10-06-2022 History of Present illness Narrative* Santos Lares MD - 04/18/2022 11:59 AM EDT PATIENT NAME: Kathy Washburn CLINIC NO.: [id number] ATTENDING PHYSICIAN: Santos Lares MD DATE OF [...] 9.37 (H) 1.00 - 4.00 k/uL Final Charlotte% Date Value Ref Range Status 04/04/2022 5.0 % Final Abs Charlotte Date Value Ref Range Status 04/04/2022 0.67 [...] do not hesitate to contact me at [phone]. Santos Lares MD Hematology/Medical Oncology [facility] I spent a total of 30 minutes on the date of the service which included preparing to see the patient, [id number] patient care, completing clinical documentation, obtaining and/or reviewing separately obtained history, counseling and educating the patient/family/caregiver, and ordering medications, tests, or procedures. Medical Decision Making: Medical Decision Making Level: 1 - N/A CC: Ayanna Vicente DO documented in this encounterC[facility]09-28-2022 Evaluation note* Encounter Date Diagnosis Assessment Notes Treatment Notes Treatment Clinical Notes Mar, Neuropathy (ICD-10 - G62.9) [facility] Other [id number] Miscellaneous Notes* Telephone Encounter - Santos Lares MD - 04/05/2022 5:06 PM EDT Spoke to the patient and answered her questions * Telephone Encounter - Niurka Hood RN - 04/05/2022 4:08 PM EDT Pt notified and verbalizes understanding. Pt would like to speak w/ you before her next appointment. Asks that you call her @ [phone] when you have time. Thanks! Niurka Hood [...] no one picked up documented in this encounterC[facility]09-22-2022 History of Present illness Narrative* Santos Lares MD - 04/04/2022 11:32 AM EDT PATIENT NAME: Kathy Washburn CLINIC NO.: [id number] ATTENDING PHYSICIAN: Santos Lares MD DATE OF [...] ago. Has a son who lives in [place]. She does not smoke nor drink heavily. [...] Santos Lares M.D. Hematology/Medical Oncology [facility] [phone] CC: Ayanna Vicente DO documented in this encounterC[facility]09-20-2022 Evaluation note* Encounter Date Diagnosis Assessment [...] She has not followed with any clinical trial specialist. She saw Dr. Akins in the [...] would like to refer her to a radar scientist for evaluation, and she agrees. A referral [...] if needed. She can also see a neckties painter to discuss injections. She voices that she saw Dr. Guillaume in the past for migraines and would like to see Dr. Morales for evaluation. For now she will try to take the pain medication more often and see if this provides her with better relief and will continue to monitor. I will refer her to Dr. Morales for evaluation. 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 She voices understanding. Mar, Encounter for screening [...] find out where Dr. Milner went in [place] and then will refer her back to Dr. Milner to discuss a colonoscopy. Mar, Weight loss (ICD-10 - R63.4) She has lost 1.5 pounds since last seen. [facility] Other 09-06-2022 Evaluation note* Encounter Date Diagnosis Assessment Notes Treatment Notes Treatment Clinical Notes Mar, Diabetes type 2, uncontrolled (ICD-10 - E11.65) Mar, Hypertension (ICD-10 - I10) Mar, Neuropathy (ICD-10 - G62.9) [facility] Other 08-26-2022 Evaluation note* Encounter Date Diagnosis Assessment Notes Treatment Notes Treatment Clinical Notes Feb, Diabetes type 2, uncontrolled (ICD-10 - E11.65) [facility] Other 07-27-2022 Evaluation note* Encounter Date Diagnosis [...] Ambien, she is taking Melatonin. 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 [facility] Other 06-27-2022 Evaluation note* Encounter Date Diagnosis Assessment Notes Treatment Notes Treatment Clinical Notes Dec, Dysphagia (ICD-10 - R13.10) [facility] Other 06-27-2022 Evaluation note* Encounter Date Diagnosis Assessment Notes Treatment Notes Treatment Clinical Notes Dec, Other spondylosis with radiculopathy, lumbar region (ICD-10 - M47.26) [facility] Other 06-16-2022 Evaluation note* Encounter Date Diagnosis [...] M20.42) Dec, Foot deformity (ICD-10 - M21.969) [facility] Other 06-08-2022 Evaluation note* Encounter Date Diagnosis Assessment Notes Treatment Notes Treatment Clinical Notes Dec, Peripheral edema (ICD-10 - R60.9) [facility] Other 06-06-2022 Evaluation note* Encounter Date Diagnosis Assessment Notes Treatment Notes Treatment Clinical Notes Dec, History of colon polyps (ICD-10 - Z86.010) Dec, Irritable bowel syndrome with diarrhea (ICD-10 - K58.0) MAY USE IMODIUM NEEDED PT TO REPORT PROGRESS [facility] Other 05-02-2022 Evaluation note* Encounter Date Diagnosis Assessment Notes Treatment Notes Treatment Clinical Notes November, Cystitis (ICD-10 - N30.90) [facility] Other 03-22-2022 Evaluation note* Encounter Date Diagnosis [...] when she came home from traveling from [place] last week she had congestion and was coughing alot, she had alot of irritation in her throat and the back of her throat. She feels like someone put a bullet in her throat. She took a decongestant yesterday and feels better today. She wonders if the cough is from pulling something in her upper back because of bending to roller picker suitcases. I did recommend that she [...] that she was able to travel to [place] last week on her own for the first time by herself with her back issues and did well. She did have to use a wheelchair. She did need a wheelchair while in the airport. An OAR[place] report was reviewed, no discrepancies noted. Frequent appointments needed due to addiction potential. [facility]. She voices that she never got a call back from that center and did not pursue this because she got involved with a urologist then developed bowel issues. She voices that she will follow up with [facility] and Dr. Regan for this issue. [...] Sep, Other 2:54 PM - 3:20 PM [facility] Other 03-21-2022 Evaluation note* Encounter Date Diagnosis Assessment Notes Treatment Notes Treatment Clinical Notes Sep, Cough (ICD-10 - R05.9) [facility] Other 03-03-2022 Evaluation note* Encounter Date Diagnosis [...] I did recommend that she see a mailing jogger for evaluation to discuss these issues further, [...] She agrees but she is going to [place] on 09-19-21 and will not return until [...] with the Imodium until she returns from [place] and is seen by Dr. Milner. She [...] Sep, Other 9:29 AM - 9:49 AM [facility] Other 01-05-2022 Evaluation note* Encounter Date Diagnosis Assessment Notes Treatment Notes Treatment Clinical Notes Jul, Neuropathy (ICD-10 - G62.9) [facility] Other 12-06-2021 Evaluation note* Encounter Date Diagnosis [...] refer her to the spine center in [place] but she did not pursue this. We [...] - N30.90) She currently follows with a digital product manager. She also saw Dr. Redding for evaluation and he did a procedure on her bladder to help with bladder leakage, she was supposed to see him again but he was sick so she is trying to get in to see either him or another doctor such as Dr. Peterson or Dr. Gleason, she does not want to see his PA or PHARMACY SALES ASSISTANT. She gets a pain in her vaginal area, describes it as a cut but now it feels as if it is going up higher. When she went to [employer] yesterday she felt like someone cut her [...] Jun, Other 2:53 PM - 3:23 PM [facility] Other 10-12-2021 Evaluation note* Encounter Date Diagnosis Assessment Notes Treatment Notes Treatment Clinical Notes Apr, Neuropathy (ICD-10 - G62.9) [facility] Other 09-22-2021 Evaluation note* Encounter Date Diagnosis [...] Dr. Regan is [facility] and she is seeing [...] the kidneys. She has never seen a rn disease management before. Her BUN is 40. Creatinine is [...] 6.2. We discussed referring her to a radar scientist for evaluation and to discuss this further but instead we will repeat lab in one month and if her level is this high or higher then we will do a referral through the [facility] in [place]. Mar, Knee pain (ICD-10 - M25.569) She [...] attending physical therapy and will see the [facility] soon. Mar, Weight loss (ICD-10 - R63.4) She has lost 5.5 pounds since last seen. She voices that she is trying to lose weight slowly. Encouraged her to continue with what she is doing. [facility] Other evaluation + Plan note Future Appointments Appointment Date:02/24/2024 10:00:00 AM Scheduled Provider:SUSAN RANDOLPH PA-C Location:[facility] Appointment Type:URO Office Visit [facility] evaluation + Plan note Future Appointments Appointment Date:02/14/2025 01:20:00 PM Scheduled Provider:SUSAN RANDOLPH PA-C Location:[facility] Appointment Type:URO Office Visit [facility] evaluation + Plan note Future Appointments Appointment Date:10/27/2025 10:20:00 AM Scheduled Provider:JOSE Stewart APRN, [place] [facility] Location:[facility] Appointment Type:URO Office Visit [facility] evaluation note* Diagnosis Pain in both knees, unspecified chronicity- Primary documented in this encounter [facility] Hospital[facility] noteNo InformationNort L[facility] Other Evysmfvfsc note* Diagnosis Onset Date Resolution Status Abrasion acute Acute hypotension acute Acute UTI acute TIP (acute kidney injury) [place] Contusion of leg, right acut e Fall [...] fracture acute Diabetes chronic Hypertension chronic Hypothyroidism [facility] Work Phone: Evaluation note* Diagnosis Lymphocytosis- Primary Lymphocytosis (symptomatic) [facility]* Diagnosis CLL (chronic lymphocytic leukemia) (HCC)- Primary Chronic lymphoid leukemia, without mention of having achieved remission [facility]* Diagnosis Onset Date Resolution Status Acute UTI acute Chronic back pain acute Depression acute Diabetic neuropathy acute Fall acute Hematoma of right lower leg acute Impaired mobility and activities of daily living acute Minor closed head injury acu te Right wrist fracture acute Diabetes chronic Hypertension chronic Hypothyroidism [facility] Work Phone: Evaluation note* Diagnosis CLL (chronic lymphocytic leukemia) (HCC)- Primary Chronic lymphoid leukemia, without mention of having achieved remission Right ear pain Otalgia, unspecified Rib pain Chest pain, unspecified Axillary adenopathy Enlargement of lymph nodes Other signs and symptoms in breast Encounter for screening mammogram for malignant neoplasm of breast Other screening mammogram documented [facility] noteNo assessment information availableBlanchard [facility] Work Phone: Evaluation note* Diagnosis CLL (chronic lymphocytic leukemia) (HCC)- Primary Chronic lymphoid leukemia, without mention of having achieved remission documented [facility]* Diagnosis Onychomycosis- Primary Dermatophytosis of nail 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) Pain in both feet documented 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 acute Peripheral edema acute HLD (hyperlipidemia) chronic Hypertension chronic Hypothyroidism chronic Insomnia [facility] Work Phone: Evaluation note* Diagnosis Onset Date Resolution Status Right otitis media acute Cystitis acute Diabetes type 2, uncontrolled acute Other spondylosis with radiculopathy, lumbar region acute Rheumatism acute Insomnia [facility] Work Phone: Evaluation note* Diagnosis Primary osteoarthritis involving multiple joints- Primary Fibromyalgia Mylagia and myositis, unspecified Type 2 diabetes mellitus without complication, with long-term current use of insulin (HCC) documented [facility] encounter [facility]* Diagnosis CLL (chronic lymphocytic leukemia) (HCC)- Primary Chronic lymphoid leukemia, without mention of having achieved remission documented [facility] this encounter [facility]* Diagnosis Cognitive impairment- Primary Unspecified persistent mental disorders due to conditions classified elsewhere Long-term use of high-risk medication documented in this encounter [facility]* Diagnosis Diarrhea, unspecified type- Primary Constipation, unspecified constipation type documented in this encounter [facility] Healthcare[facility]* Diagnosis Memory loss- Primary Concentration deficit Word finding difficulty Other chronic pain Family history of dementia Family history of other neurological diseases documented in this encounter [facility] Healthcare[facility]* Diagnosis Cognitive impairment- Primary Unspecified persistent mental disorders due to conditions classified elsewhere documented in this encounter [facility] Healthcare[facility] note* Diagnosis Onset Date Resolution Status Admit Date Cystitis acute August 11, 2024 1:16pm Irritable bowel syndrome wit h diarrhea acute August 11 1:16pm Other spondylosis with radiculopathy, lumbar region acute Jul 1:16pm [facility] Work Phone: evaluation note* Diagnosis Onset Date Resolution Status Admit [...] acute November 10 3:41pm HLD (hyperlipidemia) chronic 2024 3:41pm Hypertension chronic November 10, 2024 3:41pm Hypothyroidism chronic October 3:41pm [facility] Work Phone: Evaluation note* Diagnosis Fibromyalgia- Primary Mylagia and myositis, unspecified Primary osteoarthritis involving multiple joints Type 2 diabetes mellitus without complication, with long-term current use of insulin (HCC) Long-term use of Plaquenil Encounter for long-term (current) use of other medications documented [facility] encounter [facility]* Diagnosis Diarrhea, unspecified type- Primary documented in this encounter [facility] Narrative - Reported* Type Description Date Medical History pelvic exam done Medical History 2008 mammogram-normal Medical History 2008 colonoscopy Medical History 2003 CT scan done Medical History 2007 eye exam Medical History Zostavax done Medical History Flu/H1N1 vaccine Medical History mammogram Medical History DEXA scan Medical History Follows with Dr. Roxane rivera y Medical History 08-22-2011 [place] femur [facility] [place] History 08-22-2011 Chest x-ray [facility] Medical History stress test-normal ([facility]) Medical History Mammogram 2015 - Dr. Fritz Surgical History bilateral inguinal hernia repai r 1982 Surgical History left knee 1999 Surgical History hysterectomy 1985 Surgical History abdominal hernia 1992 Surgical History hernia repair 1998 Surgical History appendectomy 1985 Surgical History right knee replacement (Dr Monique hdz) -2009 Surgical History left total knee (Dr Haque) 2- 2 Surgical History geraldo inguinal hernia repair 1981 Surgical History lt knee 1999 Surgical History right knee replacement- Dr. Shaun hdz -2009 Surgical History left total knee-Dr. Haque -2011 Surgical History lumbar surgery Dr Frias 03/24/17 Surgical History Colonoscopy, Dr. Betts, col on polyps - Hospitalization History see above [facility] Other History general Narrative - Reported* Type Description Date Medical History pelvic exam done Medical History 2009 mammogram-normal Medical History 2009 colonoscopy Medical History 2004 CT scan done Medical History 2007 eye exam Medical History Zostavax done Medical History Flu/H1N1 vaccine Medical History mammogram Medical History DEXA scan Medical History Follows with Dr. oRxane rivera y Medical History 08-22-2011 Left femur [facility] Medical History 08-22-2011 Chest x-ray [facility] Medical History stress test-normal ([facility]) Medical History [...] head lacera tion after a fall 01/13/22 [facility] Other History general Narrative - Reported* Type Description Date Medical History -2007 pelvic exam done Medical History 2008 mammogram-normal Medical History 2009 colonoscopy Medical History 2003 CT scan done Medical History 2007 eye exam Medical History Zostavax done Medical History Flu/H1N1 vaccine Medical History -2010 mammogram Medical History -2010 DEXA scan Medical History Follows with Dr. Betts yearl y Medical History - Left femur [facility] Medical History - Chest x-ray [facility] Medical History stress test-normal ([facility]) Medical History [...] head lacera tion after a fall 01/13/22 [facility] Other His[facility]b general Narrative - Reported* Type Description Date Medical History pelvic exam done Medical History 2009 mammogram-normal Medical History 2009 colonoscopy Medical History 2004 CT scan done Medical History 2007 eye exam Medical History Zostavax done Medical History Flu/H1N1 vaccine Medical History 1-2010 mammogram Medical History DEXA scan Medical History Follows with Dr. Roxane lil y Medical History - Left femur [facility] Medical History - Chest x-ray [facility] Medical History stress test-normal ([facility]) Medical History [...] Surgical History left total knee (Dr Haque) Surgical History geraldo inguinal hernia repair 1981 Surgical History lt knee 1999 Surgical History right knee replacement- Dr. Shaun hdz Surgical History left total knee-Dr. Haque Surgical History lumbar surgery Dr Frias 03/24/17 Surgical History Colonoscopy, Dr. Betts, col on polyps 12-13-2013 Hospitalization History see above Hospitalization History fx wrist and head lacera tion after a fall 01/13/22 [facility] Other Hospital course Narrative No data available for this section [facility] Work Phone: Hospital Discharge instructionsAmbulatory Orders* Referral to Sleep Medicine Time Frame: 02/05/24, Location: None [facility] Work Phone: Hospital Discharge instructionsAmbulatory Orders* Referral to General Surgery Time Frame: 04/05/24, Location: None [facility] Work Phone: Progress note No data available for this section [facility] reason for referral (narrative)* Diagnostic Procedure Only (Routine) Status Reason Specialty Diagnoses / Procedures Referred By Contact Referred To Contact Pending Review Auto-Generated Referral XR IMAGING Diagnoses Pain in both knees, unspecified chronicity Procedures XR PELVIS 1V AP X-RAY PELVIS AP ONLY Dale Espinoza PA-C [address] [place] [address] Xr Imaging * Diagnostic Procedure Only (Routine) Status Reason Specialty Diagnoses / Procedures Referred By Contact Referred To Contact Pending Review Auto-Generated Referral XR IMAGING Diagnoses Pain in both knees, unspecified chronicity Procedures XR KNEE GENERAL 4V AP BOTH/PA BOTH/LAT/MERC BILAT KNEE AP-WGT/LAT/MERCHA NT Dale Espinoza PA-C [address] [place] [address] Xr Imaging [facility] for referral (narrative)* Diagnostic Procedure Only (Routine) - Pending Review Specialty Diagnoses / Procedures Referred By Selin vasquez Referred To Contact BR IMAGING Diagnoses Encounter for screening mammogram for malignant neoplasm of breast Procedures SONYA SCREENING W NEYDA SCREENING DIGITAL BREAST TOMOSYNTHESIS BI SCREENING MAMMOGRAPHY BI 2-VIEW BREAST INC CAD Santos Lares MD [address] [place] [id number] [facility] [address] [place] [address] Referral ID Status Reason Start Date Expiration Date Visits Requested Visits Authorized [id number] Pending Review Auto-Generat ed Referral 07/19/2022 08/18/2023 1 1 * Diagnostic Procedure Only (Routine) - Pending Review Specialty Diagnoses / Procedures Referred By Selin vasquez Referred To Contact BR IMAGING Diagnoses Axillary adenopathy Other signs and symptoms in breast Procedures US BREAST LTD LT US BREAST UNI REAL TIME WITH IMAGE LIMITED Santos Lares MD [address] [place] [id number] [facility] [address] [place] [place] [address] Referral ID Status Reason Start Date Expiration Date Visits Requested Visits Authorized [id number] Pending Review Auto-Generat ed Referral 07/26/2022 08/18/2023 1 1 * Diagnostic Procedure Only (Routine) - Pending Review Specialty Diagnoses / Procedures Referred By Contac t Referred To Contact XR IMAGING Diagnoses Rib pain Procedures XR RIBS/CHEST 3V AP RIB/OBLS/CXR LEFT RADEX RIBS UNI W/POSTEROANT CH MINIMUM 3 VIEWS Santos Lares MD [address] [place] [id number] Xr Imaging Referral ID Status Reason Start Date Expiration Date Visits Requested Visits Authorized [id number] Pending Review Auto-Generat ed Referral 07/19/2022 08/18/2023 1 1 * Consult, Test, Treat (Routine) - Authorized Specialty Diagnoses / Procedures Referred By Contac t Referred To Contact Ent - Otolaryngology Diagnoses Right ear pain Procedures CONSULT TO ENT OFFICE/OUTPATIENT [facility] 60-74 MINUTES Santos Lares MD [address] [place] [id number] Referral ID Status Reason Start Date Expiration Date Visits Requested Visits Authorized [id number] Authorized PCP Requested Referral 07/19/2022 07/19/2023 1 1 [facility] for referral (narrative)* Reason appt pt needs cons ult to see Homa Mckeon /Dr. Corea for evaluation of lumbar pain Diagnosis 1 Other spondylosis wi th radiculopathy, lumbar region (M47.26) Referral Organization [facility] [place] Referring Provider First Name Ayanna Referring Provider Last Name Sakina Referring Provider Specialty Family Prac art Referred Organization [facility] urosurgery Referred Provider Homa Mckeon Referred Address [address],[address] Referred Provider Specialty Nurse Uli cotto Referral Priority Routine General Notes Nereyda Sanchez 04/15/2023 03:33:35 PM > referral sent p2p. pt understands she will be contacted to schedule this appt Influ[employer]ds [facility] [employer] Other Reampd for referral (narrative)No reason for referral information [facility]Bl[facility] Work Phone: Reason for visit Narrativereview labs, refill medication, discuss multiple issues, see treatment plan for further information MONTAJ Other reason for visit NarrativePT HERE AT REQUEST OF DR VICNETE FOR EVALUATION AND TREATMENT OF CHANGE IN STOOL HABITS AND HISTORY OF IRRITABLE BOWEL SYNDROME AND COLON POLYPS, REFERRAL NOTE RECEIVEDNort Linguastat Other Renfse for visit Narrativereview labs/med refill, discuss multiple issues see treatment planNost. [facility] Linguastat Other reason for visit NarrativeNeurosurgery Referral Update MONTAJ Other reason for visit Narrative* Consultation (Routine) - Closed Specialty Diagnoses / Procedures Referred By Selin vasquez Referred To Contact Neurology Diagnoses Other amnesia Procedures UT OFFICE/OUTPATIENT NEW LOW MDM 30 MINUTES Ayanna Vicente MD [address] [place] [address] Phone: tel: fax: Babita Guillaume DO [address] [place] [address] Phone: tel: fax: Referral ID Status Reason Start Date Expiration Date V isits Requested Visits Authorized [id number] Closed Consult and Treat 05/21/2024 11/17/2024 1 1 [facility] N[facility]* Consultation (Routine) - Closed Specialty Diagnoses / Procedures Referred By Selin vasquez Referred To Contact Psychology Diagnoses Cognitive impairment Procedures UT OFFICE/OUTPATIENT NEW HIGH MDM Babita Guillaume DO [address] [place] [address] Phone: tel: fax: Enrique Hammonds, PhD [address] [address] Phone: tel: fax: Referral ID Status Reason Start Date Expiration Date V isits Requested Visits Authorized [id number] Closed Specialty Services Required 06/17/2024 12/14/2024 1 [...] in right hip (M 25.551) Referral Organization [facility] urosurger Referring Provider First Name Homa Referring Provider Last Name Mike Referring Provider Specialty Nurse Pract itioner Referred Organization [facility] Referred Provider Bonnie Slade Referred Address [address], [place],[address] Referred Provider Specialty Pain Medicin e Referral Priority Routine General Notes Susan Ugarte 04:33:20 PM >received today, holding referral for todays visit note to be locked Reason evaluate and t reat for hip pain Diagnosis 1 Pain in right hip (M 25.551) Referral Organization [facility] urosurgery Referring Provider First Name Homa Referring Provider Last Name Mike Referring Provider Specialty Nurse Pract itioner Referred Organization [facility] Referred Provider Gume Macedo Referred Address [address] [facility] [address],[place],[address] Referred Provider Specialty Orthopedic S urgery Referral Priority Routine General Notes Susan Ugarte 04:34:14 PM >received today, sending p2p at this time for scheduling Reason Aqua therapy - evalu ate and treat Diagnosis 1 Pain in right hip (M 25.551) Diagnosis 2 Lumbar pain (M54.50) Referral Organization [facility] urosurger Referring Provider First Name Homa Referring Provider Last Name Mike Referring Provider Specialty Nurse Pract itioner Referred Organization [facility] Referred Address [address], [place],[address] Referred Provider Specialty Physical The rapist Referral Priority Routine Reason appt pt would like to discuss hip, back, knee and sciatic pain Diagnosis 1 Other spondylosis wi th radiculopathy, lumbar region (M47.26) Referral Organization [facility] [place] Referring Provider First Name Ayanna Referring Provider Last Name Sakina Referring Provider Specialty Family Prac art Referred Organization [facility] urosurgery Referred Provider Homa Mckeon Referred Address [address] [facility] [address] ,[place],[address] Referred Provider Specialty Nurse Uli cotto Referral Priority Routine General Notes Nereyda Sanchez 07/16/2023 03:06:01 PM > referral sent p2p. pt understands she will be contacted to schedule this appt Reason appt pt is lu gilliam to see any of the providers consult for eval and treatment of rheumatism/prescribing of Plaquenil Diagnosis 1 Rheumatism, unspecif ied (M79.0) Referral Organization [facility] [place] Referring Provider First Name Ayanna Referring Provider Last Name Sakina Referring Provider Specialty Family Prac art Referred Organization [facility] Referred Provider Esteban Saravia Referred Address [address] [place],[address] Referred Provider Specialty Rheumatology Referral Priority Routine [...] Wrist fracture, righ t (S62.101A) Referral Organization [facility] [place] Referring Provider First Name Ayanna Referring Provider Last Name Sakina Referring Provider Specialty Family Prac art Referred Organization [facility] Referred Provider Penny Mike Referred Address [address] [facility] [address] [place],[address] Referred Provider Specialty Hand Surgery Referral Priority [...] th radiculopathy, lumbar region (M47.26) Referral Organization [facility] [employer] [facility] [place] Referring Provider First Name Ayanna Referring Provider Last Name Sakina Referring Provider Specialty Family Prac art Referred Organization [facility] Referred Provider Anthony Morales Referred Address [address] [place],[address] Referred Provider Specialty Psychiatry, Neurology (Osteopaths only) [...] Diagnosis 1 Leukocytosis (D72.82 9) Referral Organization [facility] [place] Referring Provider First Name Ayanna Referring Provider Last Name Sakina Referring Provider Specialty [facility] Prac art Referred Organization [facility] Referred Provider Saqib Coleman Referred Address [address] [place], [place],[address] Referred Provider Specialty Hematology/O ncology Referral Priority [...] Knee pain, right (M2 5.561) Referral Organization [facility] [place] Referring Provider First Name Ayanna Referring Provider Last Name Sakina Referring Provider Specialty Family Prac art Referred Organization [facility] Referred Provider Zohaib Akins II Referred Address [address] [place], [place],[address] Referred Provider Specialty Orthopedic S urgery Referral Priority Routine General Notes Nereyda Sanchez 02/06/2022 02:16:49 PM > referral sent p2p. pt understands she will be contacted to schedule this appt. Reason appt pt needs cons ult to discuss change in stool habits, history of colon polyps, hx of IBS Diagnosis 1 Change in stool jacquie yesi (R19.4) Referral Organization [facility] [place] Referring Provider First Name Ayanna Referring Provider Last Name Sakina Referring Provider Specialty Family Prac art Referred Organization [facility] G[facility]olo gy Referred Provider Ayanna Milner Referred Address [address] [facility] [address] ,[place], [place],[address] Referred Provider Specialty Gastroentero logy Referral Priority [...] radiculopathy Neuropathy Other abnormal blood chemistry Other alf (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 therapy Peripheral edema HLD (hyperlipidemia) Hypertension Hypothyroidism Insomnia Chief Complaint Amb Documentation E11.65 E78.5 E03.9 R79.89 N30.90 Amb Documentation review labs/med refill sore throat, congestion, cough Reason for Visit Chronic lymphocytic leukemia Cystitis Diabetes type 2, uncontrolled Lumbar disc disease with radiculopathy Neuropathy Other abnormal blood chemistry 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 Peripheral edema HLD (hyperlipidemia) [...] eptember 2023 9:49am Other spondylosis with radiculopathy, [facility] April 05, 2024 9:49am Cystitis May 11, 2024 2 :37pm Diabetes type 2, uncontrolled May 112023 2:37pm Hip pain, left May 11, 2024 2 :37pm Knee pain, left May 11, 2024 2 :37pm Memory changes May 11, 2024 2 :37pm Other abnormal blood chemistry April 142023 2:37pm Other spondylosis with radiculopathy, [facility] May 11, 2024 2:37pm HLD (hyperlipidemia) May [...] anuary 2024 1:16pm Other spondylosis with radiculopathy, [facility] August 11, 2024 1:16pm Chief Complaint Admit [...] 2024 3:4 1pm Other spondylosis with radiculopathy, [facility] November 10, 2024 3:41pm Peripheral edema [...] 2024 3:4 1pm Other spondylosis with radiculopathy, [facility] November 10, 2024 3:41pm Peripheral edema [...] 3:4 1pm Other spondylosis with radiculopathy, [facility] November 10, 2024 3:41pm Peripheral edema [...] section and content) DATE CREATED AUTHOR 01/06/2021 [facility] DATE CREATED AUTHOR AUTHOR'S ORGANIZ ATION 08/16/2022 [facility] DATE CREATED AUTHOR AUTHOR'S ORGANIZ ATION 11/13/2022 [facility] [place] [facility] DATE CREATED AUTHOR AUTHOR'S ORGANIZ ATION 12/18/2024 [facility] DATE CREATED AUTHOR AUTHOR'S ORGANIZ ATION 01/14/2025 [facility] DATE CREATED AUTHOR AUTHOR'S ORGANIZ ATION 02/01/2025 [facility] DATE CREATED AUTHOR AUTHOR'S ORGANIZ ATION 02/10/2025 [facility] DATE CREATED AUTHOR AUTHOR'S ORGANIZ ATION 03/06/2025 [facility] Source Comments (unrecognize d section and content) In the event this informatio n is protected by the Federal Confidentiality of Alcohol and Drug Abuse Patient Records regulations: The Federal rules restrict any use of the information to criminally investigate or prosecute any alcohol or drug abuse patient.[facility] the event this information is protected by the Federal Confidentiality of Alcohol and Drug Abuse Patient Records regulations: The Federal rules restrict any use of the information to criminally investigate or prosecute any alcohol or drug abuse patient.[facility] the event this information is protected by the Federal Confidentiality of Alcohol and Drug Abuse Patient Records regulations: The Federal rules restrict any use of the information to criminally investigate or prosecute any alcohol or drug abuse patient.[facility] the event this information is protected by the Federal Confidentiality of Alcohol and Drug Abuse Patient Records regulations: The Federal rules restrict any use of the information to criminally investigate or prosecute any alcohol or drug abuse patient.[facility] the event this information is protected by the Federal Confidentiality of Alcohol and Drug Abuse Patient Records regulations: The Federal rules restrict any use of the information to criminally investigate or prosecute any alcohol or drug abuse patient.[facility] the event this information is protected by the Federal Confidentiality of Alcohol and Drug Abuse Patient Records regulations: The Federal rules restrict any use of the information to criminally investigate or prosecute any alcohol or drug abuse patient.[facility] the event this information is protected by the Federal Confidentiality of Alcohol and Drug Abuse Patient Records regulations: The Federal rules restrict any use of the information to criminally investigate or prosecute any alcohol or drug abuse patient.[facility] the event this information is protected by the Federal Confidentiality of Alcohol and Drug Abuse Patient Records regulations: The Federal rules restrict any use of the information to criminally investigate or prosecute any alcohol or drug abuse patient.[facility] the event this information is protected by the Federal Confidentiality of Alcohol and Drug Abuse Patient Records regulations: The Federal rules restrict any use of the information to criminally investigate or prosecute any alcohol or drug abuse patient.[facility] the event this information is protected by the Federal Confidentiality of Alcohol and Drug Abuse Patient Records regulations: The Federal rules restrict any use of the information to criminally investigate or prosecute any alcohol or drug abuse patient.[facility] the event this information is protected by the Federal Confidentiality of Alcohol and Drug Abuse Patient Records regulations: The Federal rules restrict any use of the information to criminally investigate or prosecute any alcohol or drug abuse patient.[facility] Hospital[facility] the event this information is protected by the Federal Confidentiality of Alcohol and Drug Abuse Patient Records regulations: The Federal rules restrict any use of the information to criminally investigate or prosecute any alcohol or drug abuse patient.[facility] REASON FOR VISIT (unrecogniz ed section [...] 2025 Team Status: Inactive Member Role Status Kayal Vicente DO Primary Care Provider Active S [...] 2024 End: November 10, 2024 Team Status: Active Member Role Status [...] Provider Active S tart: June 15, 2024 Tir Ag , DO Attending Provider Active Start: [...] , ALLYSSA Other Provider Active Marcie Acosta , RN Other Provider Active Laura Wall , ALLYSSA Other Provider Active Yuliana Hale MD Other Provider Active Herman Kevin MD Other Provider Active Kitty Powell 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 Other Provider Active Madeline Juarez , DO Other Provider Active Marcio Hernandez MD Other Provider Active Loco Velasquez , DO Other Provider Active Elgin Irby MD Other Provider Active Adali Salamanca MD Other Provider Active Valarie Riojas , ANP- Other Provider Active Max Paulino MD Other Provider Active Faisal Abel MD Other Provider Active Bertram Garrison MD Other Provider Active Bobby Guevara MD Other Provider Active Pietro Chaparro MD Other Provider Active Bin Rock MD Other Provider Active Michael Burnett MD Other Provider Active Yanira Najera , PHARMACY SALES ASSISTANT-C Other Provider Active Salas Winslow MD Other Provider Active Joss Stoner MD Other Provider Active Terrie Hua MD Other Provider Active Chase Glover MD Other Provider Active Meron Estrada , DO Other Provider Active Hasmukh Palacios MD Other Provider Active Felipe Howard , DO Other Provider Active Suki Montanez , 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 Other Provider Active Santiago Fontaine , DO Other Provider Active Tyson De Los Santos MD Other Provider Active Kathy Taylor , ALLYSSA Other Provider Active Pietro Corral MD Other Provider Active Penny Mike MD Other Provider Active Susan Quarles , PHARMACY SALES ASSISTANT-C Other Provider Active Gume Macedo , DO [...] Ayanna Vicente DO Primary Care Provider Active Spa Manager/Esthetician Relationship Specialty Start Date End Date Ayanna Vicente, DO [address] [place] [address] PCP - General Family Medicine 08/01/11 Ayanna Vicente, DO [address] [place] [address] Referring Family Medicine 10/04/20 Ayanna Vicente, DO [address] [place] [address] Referring Family Medicine 01/09/21 Spa Manager/Esthetician Relationship Specialty Start Date End Date Ayanna Vicente, DO [address] [place] [address] PCP - General Family Medicine 08/01/11 Ayanna Vicente, DO [address] [place] [address] Referring Family Medicine 10/04/20 Ayanna Vicente, DO [address] [place] [address] Referring Family Medicine 01/09/21 Spa Manager/Esthetician Relationship Specialty Start Date End Date Ayanna Vicente, DO [address] [place] [address] PCP - General Family Medicine 08/01/11 Ayanna Vicente, DO [address] [place] [address] Referring Family Medicine 10/04/20 Ayanna Vicente, DO [address] [place] [address] Referring Family Medicine 01/09/21 Spa Manager/Esthetician Relationship Specialty Start Date End Date Ayanna Vicente, DO [address] [place] [address] PCP - General Family Medicine 08/01/11 Ayanna Vicente, DO [address] [place] [address] Referring Family Medicine 10/04/20 Ayanna Vicente DO [address] [place] [address] Referring Family Medicine 01/09/21 Team Status: Inactive Member Role Status Dates Ayanna Vicente DO Primary Care Provider, Family Provid er Active Santos Lares MD Attending Provider Active Team Status: Inactive Member Role Status Dates Ayanna Vicente DO Primary Care Provider, Family Provid er Active Esvin Dubon NP-C Attending Provider Active Spa Manager/Esthetician Relationship Specialty Start Date End Date Ayanna Vicente DO [address] [place] [address] PCP - General Family Medicine 08/01/11 Ayanna Vicente DO [address] [place] [address] Referring Family Medicine 10/04/20 Ayanna Vicente DO [address] [place] [address] Referring Family Medicine 01/09/21 Spa Manager/Esthetician Relationship Specialty Start Date End Date Ayanna Vicente MD [address] [place] [address] PCP - General Family Medicine 12/10/22 Spa Manager/Esthetician Relationship Specialty Start Date End Date Ayanna Vicente MD [address] [place] [address] PCP - General Family Medicine [...] May 12, 2024 End: May 12, 2024 Spa Manager/Esthetician Relationship Specialty Start Date End Date Ayanna Vicente, DO [address] [place] [address] PCP - General Family Medicine 08/01/11 Ayanna Vicente, DO [address] [place] [address] Referring Family Medicine 10/04/20 Ayanna Vicente, DO [address] [place] [address] Referring Family Medicine 01/09/21 Spa Manager/Esthetician Relationship Specialty Start Date End Date Ayanna Vicente, DO [address] [place] [address] PCP - General Family Medicine 08/01/11 Ayanna Vicente, DO [address] [place] [address] Referring Family Medicine 10/04/20 Ayanna Vicente, DO [address] [place] [address] Referring Family Medicine 01/09/21 Spa Manager/Esthetician Relationship Specialty Start Date End Date Ayanna Vicente, DO [address] [place] [address] PCP - General Family Medicine 08/01/11 Ayanna Vicente, DO [address] [place] [address] Referring Family Medicine 10/04/20 Ayanna Vicente, DO [address] [place] [address] Referring Family Medicine 01/09/21 Spa Manager/Esthetician Relationship Specialty Start Date End Date Ayanna Vicente MD [address] [place] [address] PCP - General Family Medicine 12/10/22 Spa Manager/Esthetician Relationship Specialty Start Date End Date Ayanna Vicente MD [address] [place] [address] PCP - General Family Medicine 12/10/22 Spa Manager/Esthetician Relationship Specialty Start Date End Date Ayanna Vicente MD [address] [place] [address] PCP - General Family Medicine 12/10/22 Spa Manager/Esthetician Relationship Specialty Start Date End Date Ayanna Vicente MD [address] [place] [address] PCP - General Family Medicine 12/10/22 Spa Manager/Esthetician Relationship Specialty Start Date End Date Ayanna Vicente MD [address] [place] [address] PCP - General Family Medicine 12/10/22 Spa Manager/Esthetician Relationship Specialty Start Date End Date Ayanna Vicente MD [address] [place] [address] PCP - General Family Medicine 12/10/22 Spa Manager/Esthetician Relationship Specialty Start Date End Date Ayanna Vicente MD [address] [place] [address] PCP - General Family Medicine 12/10/22 Babita Guillaume DO [address] [id number] Referring Physician Neurology 08/09/24 Spa Manager/Esthetician Relationship Specialty Start Date End Date Ayanna Vicente MD [address] [place], [place] [address] PCP - General Family Medicine 12/10/22 Babita Guillaume DO [address] [place] [id number] Referring Physician Neurology 08/09/24 Team Status: Active [...] November 10, 2024 End: November 10, 2024 Spa Manager/Esthetician Relationship Specialty Start Date End Date Ayanna Vicente DO [address] [place] [address] PCP - General Family Medicine 08/01/11 Ayanna Vicente DO [address] [place] [address] Referring Family Medicine 10/04/20 Ayanna Vicente DO [address] [place] [address] Referring Family Medicine 01/09/21 Spa Manager/Esthetician Relationship Specialty Start Date End Date Ayanna Vicente DO [address] [place] [address] PCP - General Family Medicine 08/01/11 Ayanna Vicente DO [address] [place] [address] Referring Family Medicine 10/04/20 yAanna Vicente DO [address] [place] [address] Referring Family Medicine 01/09/21 Spa Manager/Esthetician Relationship Specialty Start Date End Date Ayanna Vicente MD [address] [place] [address] [place] [address] PCP - General Family Medicine 12/10/22 Babita Guillaume DO [address] [id number] Referring Physician Neurology 08/09/24 Spa Manager/Esthetician Relationship Specialty Start Date End Date Ayanna Vicente MD [address] [place], [place] [id number] PCP - General Family Medicine 12/10/22 Babita Guillaume DO [address] [id number] Referring Physician Neurology 08/09/24 Goals (unrecognized section and content) Goals may [...] BE BASED ON THE PRIMARY CLINICAL RECORDS. [facility]. provides no warranty or guarantee of the accuracy or completeness of information in this document.
--- NOTE | 2025-03-07 15:49 | PM.CN ---
Consult Note: HPI Data of Consult Patient: known to practice within the last 3 years Consult date: 03/07/25 Requesting Physician: Som Azul MD Primary Care Provider: AYANNA VICENTE Consult Narrative Reason for consult: right shoulder pain Narrative: 84yof who presents for in office injection. continues to have right shoulder pain, would like injection. cc:: CC: Som Azul MD Review of Systems ROS Status of ROS 10 or more systems reviewed and unremarkable except as noted in history and below [facility] Medical History Failed back syndrome ?M96.1 - Postlaminectomy syndrome, not elsewhere classified (ICD-10) History of blood transfusion ?Z92.89 - Personal history of other medical treatment (ICD-10) Chronic kidney disease ?N18.9 - Chronic kidney disease, unspecified (ICD-10) Extremity edema ?R60.0 - Localized edema (ICD-10) Activity intolerance ?R68.89 - Other general symptoms and signs (ICD-10) Fibromyalgia ?M79.7 - Fibromyalgia (ICD-10) Irritable bowel syndrome with diarrhea ?K58.0 - Irritable bowel syndrome with diarrhea (ICD-10) Leukocytosis ?D72.829 - Elevated white blood cell count, unspecified (ICD-10) Leukemia ?C95.90 - Leukemia, unspecified not having achieved remission (ICD-10) Lung nodule ?R91.1 - Solitary pulmonary nodule (ICD-10) Migraine ?G43.909 - Migraine, unspecified, not intractable, without status migrainosus (ICD-10) Insomnia ?G47.00 - Insomnia, unspecified (ICD-10) Depression ?F32.A - Depression, unspecified (ICD-10) Hypothyroidism (acquired) ?E03.9 - Hypothyroidism, unspecified (ICD-10) Chronic back pain ?M54.9 - Dorsalgia, unspecified (ICD-10) ?G89.29 - Other chronic pain (ICD-10) Hyperlipidemia ?E78.5 - Hyperlipidemia, unspecified (ICD-10) Anemia ?D64.9 - Anemia, unspecified (ICD-10) Osteoarthritis ?M19.90 - Unspecified osteoarthritis, unspecified site (ICD-10) Chronic lymphocytic leukemia ?C91.10 - Chronic lymphocytic leukemia of B-cell type not having achieved remission (ICD-10) Diabetes ?E11.9 - Type 2 diabetes mellitus without complications (ICD-10) Former smoker ?Z87.891 - Personal history of nicotine dependence (ICD-10) High cholesterol ?E78.00 - Pure hypercholesterolemia, unspecified (ICD-10) Hypertension ?I10 - Essential (primary) hypertension (ICD-10) Surgical History History of radiofrequency ablation (RFA) of nerve of lumbar spine ?Z98.890 - Other specified postprocedural states (ICD-10) S/P epidural steroid injection ?Z92.241 - Personal history of systemic steroid therapy (ICD-10) History of cataract extraction with lens replacement History of appendectomy ?Z90.49 - Acquired absence of other specified parts of digestive tract (ICD-10) H/O colonoscopy ?Z98.890 - Other specified postprocedural states (ICD-10) History of total knee arthroplasty ?Z96.659 - Presence of unspecified artificial knee joint (ICD-10) History of hernia repair ?Z98.890 - Other specified postprocedural states (ICD-10) ?Z87.19 - Personal history of other diseases of the digestive system (ICD-10) S/P lumbar fusion ?Z98.1 - Arthrodesis status (ICD-10) S/P hernia surgery ?Z98.890 - Other specified postprocedural states (ICD-10) ?Z87.19 - Personal history of other diseases of the digestive system (ICD-10) H/O: hysterectomy ?Z90.710 - Acquired absence of both cervix and uterus (ICD-10) Family History Other Family history of Parkinson disease Family history of cancer Family history of hypertension Family history of myocardial infarction Family history of stroke Heart disease Social History Within the past year, how often did you have a drink containing alcohol: monthly or less Smoking status: Never smoker Non-prescribed substance use: denies use Highest level of school completed/degree received: high school graduate Little interest or pleasure in doing things: not at all Feeling down, depressed, or hopeless: not at all Meds Home Medications and Allergies Home Medications ?Medication ?Instructions ?Recorded ?Confirmed ?Type B-complex with vitamin C 1 tab PO DAILY 08/25/23 02/21/25 History aspirin 81 mg tablet,delayed 81 mg PO DAILY 08/25/23 02/21/25 History release atorvastatin 20 mg tablet (Lipitor) 20 mg PO DAILY 08/25/23 02/21/25 History cholecalciferol (vitamin D3) 125 125 mcg PO DAILY 08/25/23 02/21/25 History mcg (5,000 unit) capsule ezetimibe 10 mg tablet (Zetia) 10 mg PO DAILY 08/25/23 02/21/25 History levothyroxine 100 mcg tablet 100 mcg PO DAILY 08/25/23 02/21/25 History (Synthroid) lisinopril 10 mg tablet 10 mg PO DAILY 08/25/23 02/21/25 History multivitamin 1 tab PO DAILY 08/25/23 02/21/25 History oxycodone-acetaminophen 5 mg-325 1 tab PO BID PRN pain 08/25/23 02/21/25 History mg tablet pregabalin 225 mg capsule (Lyrica) 225 mg PO BID 08/25/23 02/21/25 History propranolol 60 mg tablet 60 mg PO DAILY 08/25/23 02/21/25 History triamterene 37.5 1 tab PO DAILY 08/25/23 02/21/25 History mg-hydrochlorothiazide 25 mg tablet (Maxzide-25mg) venlafaxine 75 mg capsule,extended 75 mg PO DAILY 08/25/23 02/21/25 History release 24 hr (Effexor XR) zolpidem 5 mg tablet 5 mg PO DAILY 08/25/23 02/21/25 History insulin glargine 100 unit/mL (3 36 unit subcut QPM 02/09/25 02/21/25 History mL) subcutaneous pen (Lantus Solostar U-100 Insulin) magnesium oxide 400 mg (241.3 mg 400 mg PO DAILY 02/09/25 02/21/25 History magnesium) tablet metformin 500 mg tablet 500 mg PO BID 02/09/25 02/21/25 History Allergies Allergy/AdvReac Type Severity Reaction Status Date / Time cefpodoxime (From Vantin) Allergy Unknown Unknown Verified 02/21/25 07:08 Exam Narrative Exam Narrative: Psych-alert and oriented x 3.? Attentive and appropriate, constitutionally normal, displays normal mood and affect per situation.? There are no obvious deficits in memory, reasoning, or intellect.? Skin-no obvious rashes, bruising, or erythema noted to the patient's area of pain. Extremities-upper extremities are warm with minimal edema and palpable pulses. Shoulder- tender to palpation in right shoulder. Pain elicited with abduction, external rotation of right shoulder. Cervical- tenderness to palpation noted in the cervical spine and paraspinal musculature.? Pain is elicited with extension, and lateral rotation of the cervical spine.? Range of motion is slightly diminished due to pain. Coordination remains intact.? Gait remains non-antalgic. Assessment and Plan Assessment and Plan (1) Right shoulder pain: Qualifiers: Chronicity: chronic Qualified Code(s): M25.511 - Pain in right shoulder; G89.29 - Other chronic pain Plan 84yof who presents for in office injection. would like right shoulder injection. agree to proceed. procedure: right shoulder injection medications: bupivacaine 0.25% 4cc, depomedrol 40mg I explained the details of the procedure to the patient including the risks, benefits, and alternatives.? We had an informed discussion.? The patient verbalized understanding and signed the consent form.? All questions were answered appropriately.? A time-out was performed.? After obtaining a comfortable seated position, the skin overlying the right shoulder was prepped with alcohol 3 times.? The sulcus between the head of the humerus and the acromion was identified.? The needle was inserted in a sterile manner 2 cm inferior and medial to the posterolateral corner of the acromion and was directed anteriorly toward the coracoid process. The contents of the syringe were gently injected without any resistance into the joint space after negative aspiration for blood or other bodily fluids.? The needle was removed and pressure was applied at the injection site to decrease the incidence of ecchymosis and hematoma formation.? A sterile bandage was applied.
== END 2025-03-07 14:52 | disposition home or self-care (01) ==
LOC: PM 14:51
PROVIDERS: PCP Family Medicine; Visit Provider Anesthesiology
DX: M25.511 Pain in right shoulder (principal); G89.29 Other chronic pain
CPT/HCPCS: 20610; J0665; J1010

== ENCOUNTER 2025-03-16 07:55 | Outpatient (OUT) | payer MEDICARE, SELFPAY ==
--- OUTSIDE RECORDS SUMMARY | 2024-08-03 09:30 | XMS_ITS ---
Author Organization [facility] Address [address] [place] [address] [place] [address] [place] [address] Care Team Providers Care Supervisor Dyer Name Role Phone Dmitriy Presley DO Primary Care Provider Unavailab Willy Davis Unavailable [phone] REASON FOR VISIT rfc Encounters Encounter Location Date Provider Diagnosis [facility] [address] [place] [address] [place] [address] 08/03/2024 Willy Schwarz Plan Of Treatment Next Appt Details Provider Name:Willy muir, 05/10/2025 03:15:00 PM, [address] [place] [address] [address], [address], [place], [address], Progress Notes * Viki WASHBURNOB: 2 (84 yo F)Acc No.[id number]:08/03/2024 Patient: Kathy GUILLEN Provider: Wilfredo Schwarz DPM :1940 A ge:84 Y S ex:Female Date:08/03/2024 Phone: Address:[address] [place] [address] Pcp:Dmitriy Presley DO Subjective: * Chief Complaints: * 1 . Rfc. * Medical History: Objective: * Vitals: Assessment: Plan: * Treatment: * Images: * Electronic signature of [place] in [place]ICOL[place]A Schwarz on 03/16/2025 at 07:57 AM EDT Sign off status: Pending * Provider: Wilfredo Schwarz DPM Date: 0 08/03/2024 Generated for Birgit sultana/Zena/eTransmitting on: 0 03/16/2025 07:57 AM EDT
--- OUTSIDE RECORDS SUMMARY | 2024-11-30 04:45 | XMS_ITS ---
Author Organization [facility] in [place] Address [address] [place] [address] Care Team Providers Care Marine Engineer Name Role Phone Dmitriy Presley DO Primary Care Provider Unavailab Carolin Mc Unavailable [phone] REASON FOR VISIT New PT Onc Encounters Encounter Location Date Provider Diagnosis [facility] [address] [place] [address] 11/30/2024 Carolin Silva Plan Of Treatment Next Appt Details Provider Name:Carolin Silva , 06/28/2025 01:00:00 PM, [address] [place], [address], Progress Notes * Viki WASHBURNOB: 2 (84 yo F)Acc No.[id number]:11/30/2024 UNLOCKED PROGRESS NOTE Progress Notes Patient: Kathy GUILLEN Provider: Rolo Silva M.D. :1940 A ge:84 Y S ex:Female Date:11/30/2024 Address:[address] [place], [place] [address], [id number] Pcp:Dmitriy Presley DO Subjective: * Chief Complaints: * 1 . New PT Onc. * Medical History: Objective: * Vitals: Assessment: Plan: * Treatment: * * Electronic signature of Reina Silva MD, [id number] on 03/16/2025 at 07:57 AM EDT Sign off status: Pending Visit Status: P EN (Pending) * Provider: Rolo Silva M.D. Date: 0 11/30/2024 Generated for Birgit sultana/Zena/Isha on: 0 03/16/2025 07:57 AM EDT
--- OUTSIDE RECORDS SUMMARY | 2025-02-22 09:15 | XMS_ITS ---
Author Organization The [facility] in [place] Address [address] [place] [address] Care Team Providers Care Refinery Operator Polymerization Plant Name Role Phone Dmitriy Presley DO Primary Care Provider Unavailab Carolin Mc Unavailable [phone] REASON FOR VISIT MD Encounters Encounter Location Date Provider Diagnosis The [facility] Oncology [address] [place] [address] 02/22/2025 Carolin Silva Plan Of Treatment Next Appt Details Provider Name:Carolin Silva , 06/28/2025 01:00:00 PM, [address] [place], [address], Progress Notes * Viki WASHBURNOB: 2 (84 yo F)Acc No.[id number]:02/22/2025 UNLOCKED PROGRESS NOTE Progress Notes Patient: Kathy GUILLEN Provider: Rolo Silva M.D. :1940 A ge:84 Y S ex:Female Date:02/22/2025 Address:[address] [place], [place] [address] Pcp:Dmitriy Presley DO Subjective: * Chief Complaints: * 1 . MD. * Medical History: Objective: * Vitals: Assessment: Plan: * Treatment: * * Electronic signature of Reina Silva MD, [id number] on 03/16/2025 at 07:58 AM EDT Sign off status: Pending Visit Status: C ANC (Cancelled) * Provider: Rolo Silva M.D. Date: 0 02/22/2025 Generated for Birgit sultana/Zena/Isha on: 0 03/16/2025 07:58 AM EDT
--- OUTSIDE RECORDS SUMMARY | 2025-03-01 07:45 | XMS_ITS ---
Author Organization The [facility] in [place] Address [address] [place] [address] Care Team Providers Care Estimator Project Manager Name Role Phone Dmitriy Presley DO Primary Care Provider Unavailab Carolin Mc Unavailable [phone] REASON FOR VISIT MD Encounters Encounter Location Date Provider Diagnosis The [facility] Oncology [address] [place] [address] 03/01/2025 Carolin Silva Plan Of Treatment Next Appt Details Provider Name:Carolin Silva , 06/28/2025 01:00:00 PM, [address] [place], [address], Progress Notes * Viki WASHBURNOB: 2 (84 yo F)Acc No.[id number]:03/01/2025 UNLOCKED PROGRESS NOTE Progress Notes Patient: Kathy GUILLEN Provider: Rolo Silva M.D. :1940 A ge:84 Y S ex:Female Date:03/01/2025 Address:[address] [place], [place] [address] Pcp:Dmitriy Presley DO Subjective: * Chief Complaints: * 1 . MD. * Medical History: Objective: * Vitals: Assessment: Plan: * Treatment: * * Electronic signature of Reina Silva MD, [id number] on 03/16/2025 at 07:58 AM EDT Sign off status: Pending Visit Status: P EN (Pending) * Provider: Rolo Silva M.D. Date: 0 03/01/2025 Generated for Birgit sultana/Zena/Isha on: 0 03/16/2025 07:58 AM EDT
--- OUTSIDE RECORDS SUMMARY | 2025-03-16 07:57 | XMS_ITS | Encounter Summary ---
Author Organization [facility] Address [address] [place] [address] Care Team Providers Care Asset Protection Greeter Name Role Phone Dmitriy Presley DO Primary Care Provider [phone] Dmitriy Presley DO Unavailable [phone] Dmitiry Presley DO Unavailable [phone] Source Comments In the event this information is protected by the Federal Confidentiality of Alcohol and Drug AbusePatient Records regulations: The Federal rules restrict any use of the information to criminally investigate or prosecute any alcohol or drug abuse patient.[facility] Encounter Details Date Type Department [...] N ot on file 03/12/2021 Data from: https://www.neighborhoodatlas.medicine.[facility]/. Last address used for calculation Not [...] 12/19/2025 11:00 AM EDT Office Visit Rheumatology [address] [place] [address] [place] [address] [place] [address] Return in about 1 year (around 12/17/2025). documented as of this encounter Visit Diagnoses Not on filedocumented in this encounter Care Teams Asset Protection Greeter Relationship Specialty Start Date End Date Dmitriy Presley DO [address] [place] [address] PCP - General Family Medicine 08/01/11 Dmitriy Presley DO [address] [place] [address] Referring Family Medicine 10/04/20 Dmitriy Presley DO [address] [place] [address] Referring Family Medicine 01/09/21 documented as of this encounter
--- OUTSIDE RECORDS SUMMARY | 2025-03-16 07:57 | XMS_ITS | Encounter Summary ---
Author Organization [facility] Address [facility] [place] [address] Care Team Providers Care Rural Carrier Associate Name Role Phone Dmitriy Presley DO Primary Care Provider [phone] Dmitriy Presley DO Unavailable [phone] Dmitriy Presley DO Unavailable Source Comments In the event this information is protected by the Federal Confidentiality of Alcohol and Drug AbusePatient Records regulations: The Federal rules restrict any use of the information to criminally investigate or prosecute any alcohol or drug abuse patient.[facility] Encounter Details Date Type Department Care Team (Late st Contact Info) Description 05/10/2024 Patient [facility] -3 [address] [place] [address] Leona Romero RPh At your next appointment, choose [facility]. Social History Tobacco Use [...] is lower risk 4 02/07/2023 Data from: https://www.neighborhoodatlas.medicine.[facility].edu/. Last address used for calculation [address] [...] 12/19/2025 11:00 AM EDT Office Visit Rheumatology [address] [place] [address] [place] [address] [facility] [place] [address] Return in about 1 year (around 12/17/2025). documented as of this encounter Visit Diagnoses Not on filedocumented in this encounter Care Teams Rural Carrier Associate Relationship Specialty Start Date End Date Dmitriy Presley DO [address] [place] [address] PCP - General Family Medicine 08/01/11 Dmitriy Presley DO [address] [place] [address] Referring Family Medicine 10/04/20 Dmitriy Presley DO [address] [place] [address] Referring Family Medicine 01/09/21 documented as of this encounter
--- OUTSIDE RECORDS SUMMARY | 2025-03-16 07:57 | XMS_ITS | Clinical Summary ---
Author Organization [facility] Address [address], [address] [place] [address] Care Team Providers Care Peoplesoft Financial Developer Name Role Phone Dmitriy Presley DO [...] AARP HEALTH CARE MEDICARE SUPP Care Teams Peoplesoft Financial Developer Relationship Specialty Start Date End Date Dmitriy Presley DO PCP - General Family Medicine 02/05/19
--- OUTSIDE RECORDS SUMMARY | 2025-03-16 07:57 | XMS_ITS | Patient Health Record ---
Author Organization [facility] Address [address] [place] [address] Care Team Providers Care Living Supervisor Name Role Phone Dmitriy Presley DO Primary Care Provider Unavailab Carolin Mc Unavailable [phone] Reason For Referral No Information Encounters Encounter Location Date Provider Diagnosis [facility] [address] [place] [address] 03/01/2025 Carolin Silva [facility] [address] [place] [address] 11/30/2024 Carolin Silva Plan Of Treatment Next Appt Details Provider Name:Carolin Silva , 06/28/2025 01:00:00 PM, [address] [place], [address], Insurance Providers Payer Name Payer Address Payer Phone Subscriber Number Group Number Insured Name Patient Relationship to Insured Coverage Start Date Coverage End Date [place] [address] [place] [address] [id number] Kathy Washburn Self - patient is the insured 7 [facility] [address] [facility] [place] [address] [phone] [id number] Kathy Washburn Self - patient is the insured 7
--- OUTSIDE RECORDS SUMMARY | 2025-03-16 07:57 | XMS_ITS | Encounter Summary ---
Author Organization [facility] Address [address] [place] [address] Care Team Providers Care Sales Account Representative Name Role Phone Dmitriy Presley DO Primary Care Provider [phone] Dmitriy Presley DO Unavailable Dmitriy Presley DO Unavailable Source Comments In the event this information is protected by the Federal Confidentiality of Alcohol and Drug AbusePatient Records regulations: The Federal rules restrict any use of the information to criminally investigate or prosecute any alcohol or drug abuse patient.[facility] Encounter Details Date Type Department Care Team (Late st Contact Info) Description 04/03/2022 Abstract Hematology/Oncology [address] [place] [place] [address] Santos Lares MD [address] [place] [address] Social History Tobacco Use Types [...] N ot on file 03/12/2021 Data from: https://www.neighborhoodatlas.medicine.[facility].edu/. Last address used for calculation Not on [...] 12/19/2025 11:00 AM EDT Office Visit Rheumatology [address] [place] [address] [place] [address] [facility] [place] [address] Return in about 1 year (around 12/17/2025). documented as of this encounter Visit Diagnoses Not on filedocumented in this encounter Care Teams Sales Account Representative Relationship Specialty Start Date End Date Dmitriy Presley DO [address] [place] [address] PCP - General Family Medicine 08/01/11 Dmitriy Presley DO [address] [place] [address] Referring Family Medicine 10/04/20 Dmitriy Presley DO [address] [place] [address] Referring Family Medicine 01/09/21 documented as of this encounter
--- OUTSIDE RECORDS SUMMARY | 2025-03-16 07:58 | XMS_ITS | Encounter Summary ---
Author Organization [facility] Address [address] [place] [address] Care Team Providers Care Diesel Engine Assembler Name Role Phone Dmitriy Presley MD Primary Care Provider [phone] Maco Guillaume DO Unavailable [phone] Encounter Details Date Type Department Care Team (Late st Contact Info) Description 12/07/2022 [facility] [address] [place] [address] Butch Smith DPM [address] [place] [address] Social History Tobacco Use Types Packs/Day Years [...] Care Team (Late st Contact Info) Description 04/18/2025 2:30 PM EDT Office Visit [facility] [address] [place] [address] Nay Louis PA [address] [place] [address] documented as of this encounter Visit Diagnoses Not on filedocumented in this encounter Care Teams Diesel Engine Assembler Relationship Specialty Start Date End Date Dmitriy Presley MD [address] [place] [address] [place] [address] PCP - General Family Medicine 12/10/22 Maco Guillaume DO [address] [place] [address] Referring Physician Neurology 08/09/24 documented as of this encounter
--- OUTSIDE RECORDS SUMMARY | 2025-03-16 07:58 | XMS_ITS | Encounter Summary ---
Author Organization [facility] Address [address] [address] Care Team Providers Care Insulation Supervisor Name Role Phone Dmirtiy Presley MD Primary Care Provider [phone] Maco Guillaume DO Unavailable Encounter Details Date Type Department Care Team (Late st Contact Info) Description 01/19/2025 External Result Encounter [facility] External Department Unsolicited Keith Iglesias DO [address] [place] [address] Social History Tobacco Use Types Packs/Day Years [...] Description 04/18/2025 2:30 PM EDT Office [facility] [address] [place] [address] Nay Louis PA [address] [place] [address] documented as of this encounter Procedures Procedure Name Priority Date/Time Associated Diagnosis Comments FL BARIUM ENEMA 01/19/2025 2:17 PM EDT documented in this encounter Results * FL BARIUM ENEMA (01/19/2025 2:17 PM EDT) Anatomical Region Laterality Modality Radiographic Sandy ging 01/19/2025 2:17 PM EDT Impressions 01/19/2025 2:23 PM EDT SIGMOID DIVERTICULOSIS. NO FIXED INTRALUMINAL FILLING DEFECT OR SIGNIFICANT NARROWING. NO SIGNIFICANT MUCOSAL ABNORMALITY IDENTIFIED. Impression dictated by: Stanford Arndt M.D. 01/19/2025 2:20 PM Dictation Location: [facility] Transcribed By: [facility] 01/19/25 1420 Dictated By: Stanford Arndt DO 01/19/25 1417 Signed By: <Electronically signed by Stanford Arndt DO in OV> 01/19/25 1420 Narrative 01/19/2025 2:23 PM EDT [facility] [place] [address] Fluoroscopy Report Signed Patient: Kathy Washburn MR#: [id number] : 1940 Acct:[id number] Age/Sex: 84 / F ADM Date: 01/19/25 Loc: XD Room: Type: [facility] Attending Dr: Keith Iglesias DO Copies to: Keith Iglesias DO Ordering Provider: Keith Iglesias DO Date of Service: 01/19/25 FL/FL barium [...] with lumbar fixation hardware. FL/FL barium enema Procedure Note Radiology, Radiologist, - 01/19/20[address] [place] [address] [place] [address] Fluoroscopy Report Signed Patient: Kathy Washburn LMR#: [id number] : 2Acct:[id number] Age/Sex: 84 / FADM Date: 01/19/25 Loc: XD Room:Type: [facility] Attending Dr: Keith Iglesias DO Copies to: Keith Iglesias DO Ordering Provider: Keith Iglesias DO Date of Service: 01/19/25 FL/FL barium enema: CHANGE IN BOWEL SINGLE CONTRAST BARIUM ENEMA History: Incomplete colonoscopy. Loose stools. Emergency. Sigmoiddiverticuli prior polypectomy. Findings: 49 images obtained. Cumulative Air Kerma in mGy: 445.94 mGy Passage of contrast from the rectum to the cecum identified. Ileocecalvalve identified. There are scattered diverticuli of the sigmoid colon with associated nonspecificnarrowing of the lumen. There is no fixed luminal filling defect or additional fixed narrowingidentified. No mucosal abnormality of the colon identified. Degenerative change with lumbar fixation hardware. FL/FL barium enema IMPRESSION: SIGMOID DIVERTICULOSIS. NO FIXED INTRALUMINAL FILLING DEFECT ORSIGNIFICANT NARROWING. NO SIGNIFICANT MUCOSAL ABNORMALITY IDENTIFIED. Impression dictated by: Stanford Arndt M.D. 01/19/2025 2:20 PM Dictation Location: [place] [address] Transcribed By: [facility] 01/19/25 1420 Dictated By: Stanford Arndt DO 01/19/25 1417 Signed By: <Electronically signed by Stanford Arndt DO in OV> 01/19/25 1420 Keith Iglesias DO IMG XR PROCEDURES Final R esult documented in this encounter Visit Diagnoses Not on filedocumented in this encounter Care Teams Insulation Supervisor Relationship Specialty Start Date End Date Dmitriy Presley MD [address] [place], [place] [id number] PCP - General Family Medicine 12/10/22 Maco Guillaume DO [address] [place] [address] Referring Physician Neurology 08/09/24 documented as of this encounter
--- OUTSIDE RECORDS SUMMARY | 2025-03-16 07:58 | XMS_ITS | Encounter Summary ---
Author Organization [facility] Address [facility] [place] [address] Care Team Providers Care Drilling Rig Operator Name Role Phone Dmitriy Presley DO Primary Care Provider [phone] Dmitriy Presley DO Unavailable [phone] Dmitriy Presley DO Unavailable [phone] Source Comments In the event this information is protected by the Federal Confidentiality of Alcohol and Drug AbusePatient Records regulations: The Federal rules restrict any use of the information to criminally investigate or prosecute any alcohol or drug abuse patient.[facility] Encounter Details Date Type Department Care Team (Late st Contact Info) Description 11/11/2024 Patient [facility] -[address] [place] [address] Leona Romero RPh At your next appointment, [...] risk 4 02/07/2023 Data from: https://www.neighborhoodatlas.medicine.[facility].edu/. Last address used for calculation [...] 12/19/2025 11:00 AM EDT Office Visit Rheumatology [address] [place] [address] [place] [address] [facility] [place] [address] Return in about 1 year (around 12/17/2025). documented as of this encounter Visit Diagnoses Not on filedocumented in this encounter Care Teams Drilling Rig Operator Relationship Specialty Start Date End Date Dmitriy Presley DO [address] [place] [address] PCP - General Family Medicine 08/01/11 Dmitriy Presley DO [address] [place] [address] Referring Family Medicine 10/04/20 Dmitriy Presley DO [address] [place] [address] Referring Family Medicine 01/09/21 documented as of this encounter
--- OUTSIDE RECORDS SUMMARY | 2025-03-16 07:58 | XMS_ITS | Clinical Summary ---
Author Organization [facility] Address [address] [place] [address] Care Team Providers Care Motor Hotel Manager Name Role Phone Dmitriy Presley MD Primary Care Provider [phone] Maco Guillaume DO Unavailable [phone] Allergies Active Allergy Reactions Criticality Noted Date [...] urethra 3x per week for UTI prevention, InRiver #72, 178, cm, 08/16/24 9:10:00 EST, Height/Length Dosing, 103, kg, 08/16/24 9:10:00 EST, Weight Dosing 5 Active aspirin 81 MG EC tablet 1 (one) time each day at the same time Active Active Problems Problem Noted Date Diagnosed [...] Encounters Date Type Department Care Team Description 01/20/2025 Orders Only [facility] [address] [place] [phone] Keith Iglesias DO 01/19/2025 Telephone [facility] [address] [place] [address] [address] [place] [phone] Keith Iglesias DO 01/19/2025 External Result Encounter [facility] Unsolicited Keith Iglesias DO 01/12/2025 1:30 PM EDT Office Visit [facility] [address] [place] [phone] Keith Iglesias, Diarrhea, unspecified type (Primary Dx) [...] [facility] [address] [place] [address] Nay Louis PA [address] [place] [address] Health Maintenance Due Date Last Done Comments Influenza Vaccine (#1) 2025 4, 04/15/2023, 04/25/2021, Additional history exists Pneumococcal Vaccine: 65+ Years Completed 06/23/2023, 04/22/2022, 07/14/2019, Additional history exists Procedures Procedure Name Priority Date/Time Associated Diagnosis Comments FL BARIUM ENEMA 01/19/2025 2:17 PM EDT COLONOSCOPY Routine 01/19/2025 1:56 PM EDT from Last 3 Months Results * FL BARIUM ENEMA (01/19/2025 2:17 PM EDT) Anatomical Region Laterality Modality Radiographic [place] ging 01/19/2025 2:17 PM EDT Impressions 01/19/2025 2:23 PM EDT SIGMOID DIVERTICULOSIS. NO FIXED INTRALUMINAL FILLING DEFECT OR SIGNIFICANT NARROWING. NO SIGNIFICANT MUCOSAL ABNORMALITY IDENTIFIED. Impression dictated by: Stanford Arndt M.D. 01/19/2025 2:20 PM Dictation Location: [id number] Transcribed By: [facility] 01/19/25 1420 Dictated By: Stanford Arndt DO 01/19/25 1417 Signed By: <Electronically signed by Stanford Arndt DO in OV> 01/19/25 1420 Narrative 01/19/2025 2:23 PM EDT [place] [address] Fluoroscopy Report Signed Patient: Kathy Washburn MR#: [id number] : 1940 Acct:[id number] Age/Sex: 84 / F ADM Date: 01/19/25 Loc: XD Room: Type: REG CLI Attending Dr: Keith Iglesias DO Copies to: [...] FL/FL barium enema Procedure Note Radiology, Radiologist, MD - 01/19/2025 [facility] [address] [place] [id number] Fluoroscopy Report Signed Patient: Kathy Washburn LMR#: [id number] : 1940cct:[id number] Age/Sex: 84 / FADM Date: 01/19/25 Loc: XD Room:Type: REG CLI Attending Dr: Keith Iglesias DO Copies to: [...] Arndt M.D. 01/19/2025 2:20 PM Dictation Location: [place] [address] Transcribed By: [facility] 01/19/25 1420 Dictated By: Stanford Arndt DO 01/19/25 1417 Signed By: <Electronically signed by Stanford Arndt DO in OV> 01/19/25 1420 Keith Iglesias DO IMG XR PROCEDURES Final R esult * Colonoscopy (01/19/2025 1:56 PM EDT) Anatomical Region Laterality Modality Endoscopy Keith Iglesias DO ENDOSCOPY PROCEDURE ORDER LIU Final Result from Last 3 Months Insurance MEDICARE [facility] Care Teams Motor Hotel Manager Relationship Specialty Start Date End Date Dmitriy Presley MD [address] [address] [place] [address] PCP - General Family Medicine 12/10/22 Maco Guillaume DO [address] [place] [address] Referring Physician Neurology 08/09/24
--- OUTSIDE RECORDS SUMMARY | 2025-03-16 07:58 | XMS_ITS | Encounter Summary ---
Author Organization [facility] Address [address] [place] [address] Care Team Providers Care Compound Machine Operator Name Role Phone Dmitriy Presley MD Primary Care Provider [phone] Maco Guillaume DO Unavailable [phone] Encounter Details Date Type Department Care Team (Late st Contact Info) Description 01/20/2025 Orders Only [facility] [address] [place] [address] Keith Iglesias DO [address] [place] [address] Social History Tobacco Use Types [...] Dermatology [address] [place] [address] Nay Louis PA [address] [place] [address] documented as of this encounter Procedures Procedure Name Priority Date/Time Associated Diagnosis Comments COLONOSCOPY Routine 01/19/2025 1:56 PM EDT documented in this encounter Results * Colonoscopy (01/19/2025 1:56 PM EDT) Anatomical Region Laterality Modality Endoscopy Keith Iglesias DO ENDOSCOPY PROCEDURE ORDER LIU Final Result documented in this encounter Visit Diagnoses Not on filedocumented in this encounter Care Teams Compound Machine Operator Relationship Specialty Start Date End Date Dmitriy Presley MD [address] [place] [address] [place] [address] PCP - General Family Medicine 12/10/22 Maco Guillaume DO [address] [place] [address] Referring Physician Neurology 08/09/24 documented as of this encounter
--- OUTSIDE RECORDS SUMMARY | 2025-03-16 07:58 | XMS_ITS | Clinical Summary ---
Author Organization [facility] Address [address] [place] [address] Care Team Providers Care Geographic Information Systems Engineer Name Role Phone Dmitriy Presley DO Primary Care Provider [phone] Dmitriy Presley DO Unavailable [phone] Dmitriy Presley DO Unavailable [phone] Allergies Active Allergy Reactions Criticality Noted Date [...] 12/17/2024 10:20 AM EDT Office Visit Rheumatology [address] [place] [address] Bertrand Morrow MD Fibromyalgia (Primary Dx); Primary [...] is lower risk 4 02/07/2023 Data from: https://www.neighborhoodatlas.medicine.[facility].edu/. Last address used for calculation [address] 02/07/2023 Comments No Sex and Gender [...] 12/19/2025 11:00 AM EDT Office Visit Rheumatology [address] [place] [address] [place] [address] [place] [address] Return in about 1 year (around 12/17/2025). [...] history exists RSV Vaccine Completed 06/23/2023 Insurance [facility] MEDICARE Care Teams Geographic Information Systems Engineer Relationship Specialty Start Date End Date Dmitriy Presley DO [address] [place] [address] PCP - General Family Medicine 08/01/11 Dmitriy Presley DO [address] [place] [address] Referring Family Medicine 10/04/20 Dmitriy Presley DO [address] [place] [address] Referring Family Medicine 01/09/21
--- OUTSIDE RECORDS SUMMARY | 2025-03-16 07:58 | XMS_ITS | Patient Health Record ---
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) Active confirmed Problem Polyneuropathy due to type 2 diabetes mellitus (270268534) Type 2 diabetes mellitus with diabetic polyneuropathy (E11.42) Active confirmed Problem Type 2 diabetes mellitus with peripheral angiopathy (949000357) Type 2 diabetes mellitus with diabetic peripheral angiopathy without gangrene (E11.51) Active confirmed Problem Dilatation of aorta (66075745) Thoracic aortic ectasia (I77.810) Active confirmed Problem Rheumatoid arthritis (84769196) Rheumatoid arthritis, unspecified (M06.9) Active confirmed Problem Tinea unguium (093530111) Tinea unguium (B35.1) Active confirmed Problem Immunodeficiency disorder (disorder) (129221561) 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) Active confirmed Problem Chronic kidney disease stage 3B (disorder) (753845821) Chronic kidney disease, stage 3b (N18.32) Active confirmed Vital Signs Blood pressure diastolic 60 mm Hg 02/08/2025 Height 69 in 02/08/2025 Blood pressure systolic 86 mm Hg 02/08/2025 Weight 232 lbs 02/08/2025 BMI 34.26 02/08/2025 Encounters Encounter Location Date Provider Diagnosis [address] [place] [address] 05/03/2024 Willy Schwarz Tinea unguium B35.1 ; Type 2 diabetes mellitus with diabetic peripheral angiopathy without gangrene E11.51 and Type 2 diabetes mellitus with diabetic polyneuropathy E11.42 [facility] [address] [place] [address] 08/10/2024 Willy Schwarz Tinea unguium B35.1 ; Type 2 diabetes mellitus with diabetic peripheral angiopathy without gangrene E11.51 ; Type 2 diabetes mellitus with diabetic polyneuropathy E11.42 ; Chronic lymphocytic leukemia of B-cell type not having achieved remission C91.10 ; Rheumatoid arthritis, unspecified M06.9 and Immunodeficiency due to conditions classified elsewhere D84.[address] [facility] [address] [place] [address] 11/09/2024 Willy Schwarz Tinea unguium B35.1 ; Type 2 diabetes mellitus with diabetic peripheral angiopathy without gangrene E11.51 ; Type 2 diabetes mellitus with diabetic polyneuropathy E11.42 and 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 11/09/2024 half-way (current) use of oral hypoglycemic drugs (ICD-10 - Z79.84) 02/08/2025 terminal worker (current) use of oral hypoglycemic drugs (ICD-10 [...] Details Provider Name:Willy muir, 05/10/2025 03:15:00 PM, Pending sale to [facility] [place], [facility], [place], [address], Insurance Providers Payer Name Payer Address Payer Phone Subscriber Number Group Number Insured Name Patient Relationship to Insured Coverage Start Date Coverage End Date Medicare Part B J-15 Part [facility] [place] [address] [place] [address] [id number] Kathy Washburn Self - patient is the insured [facility] Health Care Options [address] [place] [address] [id number] Kathy Washburn Self - patient is the insured Medical (General) History Medical History History ICD Code Type II diabetes leukemia hypertension osteoarthritis fibromyalgia Thyroid disease Hypercholestrolemia Surgical History Surgery Date(Month/Year) hernia repair hysterectomy knee replacement x2 back surgery Hospitalization History Reason Date(Month/Year) see surgical
--- OUTSIDE RECORDS SUMMARY | 2025-03-16 08:07 | XMS_ITS | CCD ---
Author Organization [facility] CliniSyks Care Team Providers Care Vessel Specialist Name Role Phone Ayanna Vicente Primary Care Provider Ayanna Vicente Unavailable Ayanna Vicente Unavailable [phone] Ayanna Vicente Unavailable Ayanna Milner Unavailable DO Ayanna Vicente Primary Care Provider MD James Redding Emergency Provider [phone] MD Bertram Garrison Admit Provider MD Bertram Garrison Attending Provider MD Galo Max Admit Provider MD Galo Max Attending Provider ALLYSSA Penn Other Provider Unavailable ALLYSSA Orourke Other Provider Unavailable ALLYSSA Camejo Other Provider Unavailable ALLYSSA Das Other Provider Unavailable ALLYSSA Acosta Other Provider Unavailable ALLYSSA Wall Other Provider Unavailable MD Yuliana Hale Other Provider MD Herman Kevin Other Provider 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, 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 CAR 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 Kitty Villalobos Other Provider DO Madeline Juarez Other Provider MD Marcio Hernandez Other Provider DO Loco Velasquez Other Provider [phone] MD Elgin Irby Other Provider MD Adali [...] Vicente DO Unavailable Ayanna Vicente DO Unavailable [phone] DO Ayanna Vicente Primary Care Provider Ayanna Vicente DO Primary Care Provider Ayanna Vicente DO Unavailable Ayanna Vicente DO Unavailable [phone] DO Ayanna Vicente Primary Care Provider DO Ayanna Vicente Attending Provider MD Santos Lares Attending Provider [phone] Ayanna Vicente Primary Care Unavailable PABLO Dubon Attending Provider DO Ayanna Vicente Primary Care Provider DO Ayanna Vicente Attending Provider [phone] MD Santos Lares Attending Provider PABLO Dubon Attending Provider DR AYANNA VICENTE Primary Care Unavailable LAKSHMIPATHY ., NARENDRANATH Attending Abigail vailable VERNONMIPATHKamari ., NARENDRANATH Admitting Abigail vailable Ayanna Vicente Primary Care Physician DO Ayanna Vicente Primary Care Provider DO Ayanna Vicente Attending Provider Junior Butterfield Unavailable Homa Mckeon Unavailable Ayanna Vicente MD Primary Care Provider DO Ayanna Vicente Primary Care Provider [phone] DO Ayanna Vicente Attending Provider DO Ayanna Vicente Primary Care Provider DO Ayanna Vicente Attending Provider Ayanna Vicente DO Primary Care Provider Ayanna Vicente DO Unavailable [phone] Ayanna Vicente DO Unavailable [phone] DO Ayanna Vicente Primary Care Provider DO Ayanna Vicente Attending Provider Ayanna Vicente DO Primary Care Provider Sakina WISDOM, Ayanna Attending Provider [phone] Aundrea DO, Christopher Unavailable Ayanna Vicente DO Primary Care Provider Ayanna Vicente DO Attending Provider Marker DO, Tri Vasquez Attending Provider [phone] Ayanna Vicente DO Attending Provider AYANNA VICENTE Primary Care Unavailable SELF Referring Unavailable ZOHAIB GERMAN Attending Unavailable AYANNA VICENTE Primary Care Unavailable AYANNA VICENTE Primary Care Unavailable CHAD FREITAS Attending Unavailable ZOHAIB GERMAN Attending Unavailable AYANNA VICENTE Primary Care Unavailable Ayanna Vicente MD Primary Care Provider [phone] Aundrea WISDOM Christopher Unavailable [phone] ESVIN DUBON Attending Unavailable JAMES SMITH Attending Unavailable BABITA GUILLAUME Attending Unavailable AYANNA VICENTE Referring Unavailable MOE BETTS Attending Unavailable ROXANE, MOE Hogan Attending Unavailable ENRIQUE HAMMONDS Attending Unavailable BABITA GUILLAUME Referring Unavailable Aundrea WISDOM, Christopher Unavailable [phone] Ayanna Vicente DO Attending Provider [phone] Sakina WISDOM, Ayanna Primary Care Provider Lesli Arevalo MD Attending Provider Roxane WISDOM, Moe Attending Provider Ayanna Vicente Admitting Unavailable Ayanna Vicente Attending Unavailable Roxane, Moe Attending Unavailable Ayanna Vicente Primary Care Unavailable Itjose, Moe Admitting Unavailable Marker, Tri Vasquez Admitting Unavailable Marker, Tri Vasquez Attending Unavailable Ayanna Vicente Admitting Unavailable Ayanna Vicnete Attending Unavailable Ayanna Vicente Attending Unavailable Ayanna [...] Allergy 02-20-20 04 Hives, Swelling [facility] (20 sources) cefpodoxime; Translations: [Vantin] Drug Allergy 12-24-19 16 Eye swelling (finding) [facility] (20 sources) cepahlosporins Propensity to adverse reactions Unknown [facility] Other (20 sources) Cephalosporins (Antibiotic); Translations: [Cephalosporins] Allergy to substance 02-20-20 04 Hives, Swelling, Swelling (morphologic abnormality), Eye swelling (finding), Unknown [facility] Comment on above: Eyes swelled also (20 sources) cefpodoxime; Translations: [CEFPODOXIME] Drug Allergy 02-17-20 19 Unknown, Other [facility] (1 source) Amoxicillin Drug Allergy 12-24-19 16 [facility] (15 sources) Medicinal cephalosporin and acting as antibacterial agent (FN) Drug allergy Unknown [facility] Other (2 sources) Bacitracin / Neomycin / Polymyxin B Drug Allergy Unknown [facility] Other (20 sources) Bacitracin; Translations: [bacitracin] Drug Allergy 08-12-19 Unknown Reaction [facility] (20 sources) Neomycin; Translations: [neomycin] Drug Allergy 08-12-19 Unknown Reaction [facility] (20 sources) polymyxin B; Translations: [polymyxin B] Allergy to substance 08-12-19 Unknown Reaction [facility] (1 source) cefpodoxime Drug Allergy 01-28-20 [facility] Repository Medications Current Medications Medication Drug Class(es) [...] day(s), # 14 tab(s), Refills(s) 0, Pharmacy: [facility] #[facility], 178, cm, 02/08/25 9:03:00 EDT, [...] urethra 3x per week for UTI prevention, [facility], 178, cm, 02/08/25 9:03:00 EDT, Height/Length [...] urethra 3x per week for UTI prevention, [facility], 178, cm, 08/16/24 9:10:00 EST, Height/Length Dosing, 103, kg, 08/16/24 9:10:00 EST, Weight Dosing 08/16/2024 Active Start: 08-16-2024 Estrace 0.1 mg /g Cream See Instructions, 42.5 gm, Refill(s) 6, apply a pea-sized amount vaginally and around the urethra 3x per week for UTI prevention, [facility], 178, cm, 08/16/24 9:10:00 EST, Height/Length [...] Active 36 UNIT SUBCUT Every evening 45 January 11, 2025 9:44am Complies with drug [...] 12:00am January 24, 2022 3:09pm Start: 11-28-[address] UN[address]/ML as directed Subcutaneous [...] incontinence, # 90 tab(s), Refills(s) 3, Pharmacy: [facility] #72, 178, cm, 02/11/23 11:43:00 [...] tablet (20 sources) Anticholinergic Start: 024 End: take 1 tablet by mouth twice [...] 4:43pm docusate sodium 50 mg / sennosides, retirement 8.6 mg oral tablet (20 sources) Start: [...] Comment on above: Take one(1) tablet d lauriey. 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; Translations: [Long-term (current) use of other medications] Onset: 02-06-2022 Resolved: 02-06-2022 Episodic Other aftercare (18 sources) Long-term current use of drug therapy; Translations: [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] 10-21-2023 Episodic Other aftercare (2 sources) H/O: high risk medication; Translations: [Other half-way (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 therapy] 06-17-2024 Episodic Other aftercare (1 source) Drug therapy finding; Translations: [Other half-way (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 therapy] 12-17-2024 Episodic Other aftercare (1 source) bufferer (current) use of insulin; Translations: [Type 2 [...] Facility Basophils/100 WBC Manual cnt (Bld)Ordered By: Som Giedraitis on 02-09-2025 Basophils/100 WBC (Bld) 0.0 % Low 0.2-2.0 [facility] Eosinophils/100 WBC Manual c nt (Bld)Ordered By: Som Giedraitis on 02-09-2025 Eosinophils/100 WBC (Bld) 0.0 % Low 0.9-7.0 [facility] Erythrocyte distribution wid th Auto (RBC) [Ratio]Ordered By: Som Azul on 02-09-2025 Erythrocyte distribution width (RBC) [Ratio] 13.7 % 11.0-15.0 [facility] Estimated glomerular filtrat ion rate (GFR) non- AmericanOrdered By: Som Azul on 02-09-2025 GFR/1.73 sq M.predicted among non-blacks MDRD (S/P/Bld) [Vol rate/Area] 35 mL/min/{1.73_m2} Low >=60 mL/min/1.73 m 2 [facility] Hematocrit Auto (Bld) [Volum e fraction]Ordered By: Som Azul on 02-09-2025 Hematocrit (Bld) [Volume fraction] 36.4 % 36.0-48.0 [facility] Hemoglobin [Mass/volume] in BloodOrdered By: Som Azul on 02-09-2025 Hemoglobin (Bld) [Mass/Vol] 11.6 g/dL Low 12.0-16.0 [facility] Laboratory - Chemistry and C hemistry - challengeOrdered By: Som Azul on 02-09-2025 Calcium [Mass/Vol] 9.0 mg/dL 8.5-10.1 [facility] Chloride [Moles/Vol] 107 mmol/L 98-107 [facility] CO2 [Moles/Vol] 30.8 mmol/L 21.0-32.0 [facility] Creatinine [Mass/Vol] 1.43 mg/dL High 0.55-1.02 [facility] GFR/1.73 sq M.predicted MDRD (S/P/Bld) [Vol rate/Area] 43 mL/min/{1.73_m2} Low >=60 mL/min/1.73 m 2 [facility] Glucose [Mass/Vol] 120 mg/dL High 74-106 [facility] Potassium [Moles/Vol] 5.0 mmol/L 3.5-5.1 [facility] Sodium [Moles/Vol] 143 mmol/L 136-145 [facility] Urea nitrogen [Mass/Vol] 36.0 mg/dL High 7.0-18.0 [facility] Urea nitrogen/Creatinine [Mass ratio] 25.2 mg/mg [facility] Laboratory - Hematology and Cell countsOrdered By: Andrius Molinaraitis on 02-09-2025 Lymphocytes/100 WBC (Bld) 51.0 % 20.5-60.0 [facility] Monocytes/100 WBC (Bld) 5.0 % 1.7-12.0 [facility] Leukocytes [#/volume] correc andreina for nucleated erythrocytes in Blood by Automated counOrdered By: Andrius Giadelaraitis on 02-09-2025 WBC corrected for nucl RBC Auto (Bld) [#/Vol] 19.3 10 3/uL High 4.0-11.0 [facility] MCH Auto (RBC) [Entitic mass ]Ordered By: Andrius Molinaraitis on 02-09-2025 MCH (RBC) [Entitic mass] 30.2 pg 26.7-34.0 [facility] MCHC Auto (RBC) [Mass/Vol]Or dered By: Andrius Giedraitis on 02-09-2025 MCHC (RBC) [Mass/Vol] 31.9 g/dL 29.9-35.2 [facility] MCV Auto (RBC) [Entitic vol] Ordered By: Andrius Giedraitis on 02-09-2025 MCV (RBC) [Entitic vol] 94.8 fL 81.0-99.0 [facility] No Panel InformationOrdered By: Andrius Giedraitis on 02-09-2025 Absolute Basophils (Manual) 0.00 10 3/uL 0.00-0.10 [facility] Eosinophils # (Manual) 0.00 10 3/uL 0.00-0.70 [facility] Lymphocytes # (Manual) 9.84 10 3/uL High 1.20-3.80 [facility] Monocytes # (Manual) 0.96 10 3/uL High 0.30-0.80 [facility] Segmented Neutrophils # (Manual) 8.49 10 3/uL High 1.4-6.5 [facility] Platelet mean volume Auto (B ld) [Entitic vol]Ordered By: Andrius Giedraitis on 02-09-2025 Platelet mean volume (Bld) [Entitic vol] 11.8 fL 9.5-13.5 [facility] Platelets Auto (Bld) [#/Vol] Ordered By: Andrius Giedraitis on 02-09-2025 Platelets (Bld) [#/Vol] 213 10 3/uL 150-450 [facility] RBC Auto (Bld) [#/Vol]Ordere d By: Andrius Giedraitis on 02-09-2025 RBC (Bld) [#/Vol] 3.84 10 6/uL Low 4.20-5.40 [facility] Segmented neutrophils/100 WB C Manual cnt (Bld)Ordered By: Andrius Giedraitis on 02-09-2025 Segmented neutrophils/100 WBC (Bld) 44.0 % 43.0-75.0 [facility] Serum or plasma anion gap de terminationOrdered By: Andrius Giedraitis on 02-09-2025 Anion gap [Moles/Vol] 10.2 mmol/L [facility] Smudge cell detectionOrdered By: Andrius Giedraitis on 02-09-2025 Smudge cells LM Ql (Bld) SEEN [facility] Ambulatory Visit Summaryon 0 02-08-2025 Ambulatory Visit Summary Ambulatory Visi t Summary KATHY WASHBURN Car :1940 Visit Date:02/08/2025 Ambulatory Visit Instructions Your [...] APRN, Sujey Lopez Where: [facility] [id number]- You Need to Schedule the Following Appointments Follow Up with Follow up in Spring When: Medications What How Much When Instructions New ciprofloxacin (Cipro 500 mg Tab) 1 Tablets By Mouth Every 12 hours Duration: 7 Days Pickup at [facility] Unchanged estradiol topical (Estrace 0.1 mg/ g Cream) See instructions apply a pea-sized amount vaginally and around the urethra 3x per week for UTI prevention Pickup at [facility] Unchanged trospium (trospium 20 mg oral [...] Drug Ma (more content not included)... Normal [facility] Urology Office/Clinic Noteon 02-08-2025 Urology Office/Clinic [...] (N39.41: Urge incontinence) S/p Botox 100u 08/30/21. Childs sxs only improved for a few weeks or so. Wasn't very impressed w improvement. Does not wish to repeat Botox. Failed Myrbetriq and Oxybutynin previously. TODAY: BBSQ 18 poor control. Using Trospium IR PRN when traveling or going out of the house. Helps a lot. Minimizes side effects by using PRN. Did review [employer] brochure I provided last ov. Came w some questions. Discussed at length today. Pt would like to continue to think about it but is interested in BNE in future. Ordered: Complex E&M Add on G2211 E&M of Est. Patient Moderate 30-39 Min 45772 2. Recurrent UTI (N39.0: Urinary tract infection, [...] 11/01/24 - 7.0 01/17/25 - BUN 35 [employer] 1.2 GFR [address] Arevalo [...] E&M of Est. Patient Moderate 30-39 Min 80482 Orders: ciprofloxacin, 500 mg = 1 tab(s), Oral, q12hr, X 7 day(s), # 14 tab(s), Refills(s) 0, Pharmacy: [facility] #[facility], 178, cm, 02/08/25 9:03:00 EDT, Height/Length Dosing, 105.1, kg, 02/08/25 9:03:00 EDT, Weight Dosing estradiol topical, See Instructions, 42.5 gm, Refill(s) 6, apply a pea-sized amount vaginally and around the urethra 3x per week for UTI prevention, [facility], 178, cm, 02/08/25 9:03:00 EDT, Height/Length [...] oral tablet (more content not included)... Normal [facility] Comment on above: Result Comment: Elec tronically Signed By: SUSAN RANDOLPH PA-C\.br\Date and Time Signed: 02/08/25 10:51 EDT [place] barium enemaon 01-19-2025 [place] barium enema [facility] [place] [address] Fluoroscopy Report Signed Patient: Kathy Washburn MR#: [id number] : 1940 Acct:[id number] Age/Sex: 84 / F ADM Date: 01/19/25 Loc: XD Room: Type: [facility] Attending Dr: Moe Betts DO Copies to: [...] Arndt M.D. 01/19/2025 2:20 PM Dictation Location: [place] [address] Transcribed By: [facility] 01/19/25 1420 Dictated By: Stanford Arndt DO 01/19/25 1417 Signed By: 01/19/25 1420 Normal [facility] Fluoroscopy reportOrdered By : Stanford Arndt on 01-19-2025 RF Unspecified body region Views [facility] [place] [address] [place] [address] Fluoroscopy Report Signed Patient: Kathy Washburn MR#: [id number] : 1940 Acct:[id number] Age/Sex: 84 / F ADM Date: 5 Loc: XD Room: Type: [facility] Attending Dr: Moe Betts DO Copies to: [...] Arndt M.D. 01/19/2025 2:20 PM Dictation Location: [place] [address] Transcribed By: [facility] 01/19/25 1420 Dictated By: Stanford Arndt DO 01/19/25 1417 Signed By: 01/19/25 1420 [facility] Erythrocyte distribution wid th Auto (RBC) [Ratio]Ordered By: Lesli Arevalo on 01-17-2025 Erythrocyte distribution width (RBC) [Ratio] 14.3 % 11.0-15.0 [facility] Estimated glomerular filtrat ion rate (GFR) non- AmericanOrdered By: Lesli Arevalo on 01-17-2025 GFR/1.73 sq M.predicted among non-blacks MDRD (S/P/Bld) [Vol rate/Area] 43 mL/min/{1.73_m2} Low >=60 mL/min/1.73 m 2 [facility] Hematocrit Auto (Bld) [Volum e fraction]Ordered By: Lesli Arevalo on 01-17-2025 Hematocrit (Bld) [Volume fraction] 39.4 % 36.0-48.0 [facility] Hemoglobin [Mass/volume] in BloodOrdered By: Lesli Arevalo on 01-17-2025 Hemoglobin (Bld) [Mass/Vol] 12.7 g/dL 12.0-16.0 [facility] Laboratory - Chemistry and C hemistry - challengeOrdered By: Lesli Arevalo on 01-17-2025 Albumin [Mass/Vol] 3.5 g/dL 3.4-5.0 [facility] Calcium [Mass/Vol] 9.0 mg/dL 8.5-10.1 [facility] Chloride [Moles/Vol] 109 mmol/L High 98-107 [facility] CO2 [Moles/Vol] 29.7 mmol/L 21.0-32.0 [facility] Creatinine [Mass/Vol] 1.20 mg/dL High 0.55-1.02 [facility] GFR/1.73 sq M.predicted MDRD (S/P/Bld) [Vol rate/Area] 52 mL/min/{1.73_m2} Low >=60 mL/min/1.73 m 2 [facility] Glucose [Mass/Vol] 99 mg/dL 74-106 [facility] Magnesium [Mass/Vol] 1.5 mg/dL Low 1.8-2.4 [facility] Potassium [Moles/Vol] 4.9 mmol/L 3.5-5.1 [facility] Sodium [Moles/Vol] 146 mmol/L High 136-145 [facility] Urate [Mass/Vol] 6.2 mg/dL High 2.6-6.0 [facility] Urea nitrogen [Mass/Vol] 35.0 mg/dL High 7.0-18.0 [facility] Urea nitrogen/Creatinine [Mass ratio] 29.2 mg/mg [facility] Bilirubin Ql (U) Negative NEGATIVE [facility] Glucose (U) [Mass/Vol] Negative NEGATIVE [facility] Ketones Ql (U) Negative NEGATIVE [facility] pH (U) 6.0 [pH] 5.0-9.0 [facility] Specific gravity (U) [Rel density] 1.025 1.005-1.025 [facility] Urobilinogen Qn (U) 0.2 {Jose'U}/dL 0.2-1.0 [facility] Laboratory - Specimen inform ationOrdered By: Lesli Arevalo on 01-17-2025 Appearance (U) CLEAR CLEAR [facility] Color (U) DK. YELLOW YELLOW [facility] Laboratory - UrinalysisOrder ed By: Lesli Arevalo on 01-17-2025 Leukocyte esterase Test strip Ql (U) Negative NEGATIVE [facility] Mucus Ql (Urine sed) TRACE Abnormal NONE SEEN [facility] Nitrite Ql (U) Negative NEGATIVE [facility] Protein (U) [Mass/Vol] 41.4 mg/dL High <=11.9 [facility] Protein Ql (U) TRACE mg/dL NEG/TRACE [facility] Leukocytes [#/volume] correc andreina for nucleated erythrocytes in Blood by Automated counOrdered By: Lesli Arevalo on 01-17-2025 WBC corrected for nucl RBC Auto (Bld) [#/Vol] 18.8 10 3/uL High 4.0-11.0 [facility] MCH Auto (RBC) [Entitic mass ]Ordered By: Lesli Arevalo on 01-17-2025 MCH (RBC) [Entitic mass] 30.2 pg 26.7-34.0 [facility] MCHC Auto (RBC) [Mass/Vol]Or dered By: eLsli Arevalo on 01-17-2025 MCHC (RBC) [Mass/Vol] 32.2 g/dL 29.9-35.2 [facility] MCV Auto (RBC) [Entitic vol] Ordered By: Lesli Arevalo on 01-17-2025 MCV (RBC) [Entitic vol] 93.6 fL 81.0-99.0 [facility] No Panel InformationOrdered By: Lesli Arevalo on 01-17-2025 25-Hydroxy Vitamin D Total 61.8 ng/mL [facility] Comment on above: <20 ng/mL Vit D defi cient20-<30 ng/mL Vit D ulnwiasqxtqe08-700 ng/mL Vit D sufficient>100 ng/mL Potential Toxicity Parathyroid Hormone (Intact) 42 pg/mL 15-65 [facility] Comment on above: Performed at: - [facility] [address] [id number] Director: Narinder Elam PhD, Phone: [phone] Phosphorus Level 4.1 mg/dL 2.6-4.7 [facility] Urine Bacteria SMALL #/HPF Abnormal NONE SEEN [facility] Urine Occult Blood Negative NEGATIVE [facility] Urine Other Casts NONE SEEN #/LPF NONE SEEN [facility] Urine Other Crystals None Seen #/HPF None Seen [facility] Urine Random Creatinine 119.94 mg/dL 20.0 0-300.0 0 [facility] Urine RBC 0-2 #/HPF 0-2 [facility] Urine Squamous Epithelial Cells RARE #/LPF NONE/RARE [facility] Urine WBC 0-2 #/HPF Abnormal NONE SEEN [facility] Platelet mean volume Auto (B ld) [Entitic vol]Ordered By: Lesli Arevalo on 01-17-2025 Platelet mean volume (Bld) [Entitic vol] 11.4 fL 9.5-13.5 [facility] Platelets Auto (Bld) [#/Vol] Ordered By: Lesli Mickey on 01-17-2025 Platelets (Bld) [#/Vol] 217 10 3/uL 150-450 [facility] RBC Auto (Bld) [#/Vol]Ordere d By: Lesli Mickey on 01-17-2025 RBC (Bld) [#/Vol] 4.21 10 6/uL 4.20-5.40 [facility] Serum or plasma anion gap de terminationOrdered By: Lesli Mickey on 01-17-2025 Anion gap [Moles/Vol] 12.2 mmol/L [facility] Urine protein/creatinine rat ioOrdered By: Lesli Mickey on 01-17-2025 Protein/Creatinine (U) [Ratio] 0.35 [facility] CNOVon 12-17-2024 CNOV Office Visit (INEZ ) KATHY WASHBURN ([id number]) 1940 F Date Time Provider Department 12/17/24 10:20 AM ZOHAIB GERMAN During your visit today, we recorded the following information about you: Temperature Blood pressure Weight Height 65 degrees 112/71 103.6 kg 1.727 m Zohaib German MD 12/17/2024 10:49 AM Signed [facility] Date of Service: 12/17/2024 Patient: Kathy Washburn Medical Record: [id number] Primary Care Physician: Ayanna Vicente DO Last [...] status and 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 There have not been any new health [...] Mixed hyp (more content not included)... Normal [facility] Prakash 11-17-2024 [facility] Telephone ([facility]) MARKUSKATHY Car ([id number]) 1940 F Date Time Provider Department 11/17/24 CHAD FREITAS During your visit today, we recorded the following information about you: Nicolás Callahan Lori 11/17/2024 11:[address] Zena DREW Received a call from patient caregiver Roxie Alexandregins. She stated that patient would like to cancel her upcoming appointment with Dr Paredes on 11/24 due to patient is going to be following with Dr Silva @ [facility] as this is closer to home for patient. Roxie requested to talk to medical records regarding having records sent to Dr Silva transferred call To Heather Todd. Susan Rodriguez 11/17/2024 2:36 PM Signed Records faxed to Dr. Silva [phone]. I called Roxie to let her know [...] Status:Closed by LORI RENNER on 11/17/24 Normal [facility] Acanthocytes [Presence] in B lood by Light microscopyon 11-01-2024 Acanthocytes LM Ql (Bld) Acanthocytes [Presence] in Blood by Light microscopy [facility] Acanthocytes LM Ql (Bld) 1+ [facility] Basophils/100 WBC Manual cnt (Bld)on 11-01-2024 Basophils/100 WBC (Bld) Basophils/100 leukocytes in Blood by Manual count 0.2-2.0 [facility] Basophils/100 WBC (Bld) 2.0 % 0.2-2.0 F [facility] Cholesterol in LDL Calc [Mas s/Vol]on 11-01-2024 Cholesterol in LDL [Mass/Vol] Cholesterol in LDL [Mass/volume] in Serum or Plasma by calculation [facility] Comment on above: <100 mg/dl [id number] 0-129 mg/dl NEAR OR ABOVE [id number] mg/dl BORDERLINE [id number] mg/dl HIGH>190 mg/dl VERY HIGH Cholesterol in LDL [Mass/Vol] 29.2 mg/dL [facility] Comment on above: <100 mg/dl [id number] 0-129 mg/dl NEAR OR ABOVE [id number] mg/dl BORDERLINE [id number] mg/dl HIGH>190 mg/dl VERY HIGH Cholesterol in VLDL Calc [Ma ss/Vol]on 11-01-2024 Cholesterol in VLDL [Mass/Vol] Cholesterol in VLDL [Mass/volume] in Serum or Plasma by calculation [facility] Cholesterol in VLDL [Mass/Vol] 22.8 mg/dL [facility] Eosinophils/100 WBC Manual c nt (Bld)on 11-01-2024 Eosinophils/100 WBC (Bld) Eosinophils/100 leukocytes in Blood by Manual count 0.9-7.0 [facility] Eosinophils/100 WBC (Bld) 1.0 % 0.9-7.0 [facility] Erythrocyte distribution wid th Auto (RBC) [Ratio]on 11-01-2024 Erythrocyte distribution width (RBC) [Ratio] 14.6 % 11.0-15.0 [facility] Estimated glomerular filtrat ion rate (GFR) non- Americanon 11-01-2024 GFR/1.73 sq M.predicted among non-blacks MDRD (S/P/Bld) [Vol rate/Area] Estimated glomerular filtration rate (GFR) non- Low >=60 mL/min/1.73 m 2 [facility] GFR/1.73 sq M.predicted among non-blacks MDRD (S/P/Bld) [Vol rate/Area] 36 mL/min/{1.73_m2} Low >=60 mL/min/1.73 m 2 [facility] Globulin Calc (S) [Mass/Vol] on 11-01-2024 Globulin (S) [Mass/Vol] Serum globulin measurement by calculation (mass/volume) [facility] Globulin (S) [Mass/Vol] 3.4 g/dL F [facility] Glucose mean value [Mass/vol ume] in Blood Estimated from glycated hemoglobinon 11-01-2024 Average glucose Estimated from glycated hemoglobin (Bld) [Mass/Vol] Glucose mean value [Mass/volume] in Blood Estimated from glycated hemoglobin [facility] Average glucose Estimated from glycated hemoglobin (Bld) [Mass/Vol] 154 mg/dL [facility] Hematocrit Auto (Bld) [Volum e fraction]on 11-01-2024 Hematocrit (Bld) [Volume fraction] 41.5 % 36.0-48.0 [facility] Hemoglobin A1c percentageon 11-01-2024 HbA1c (Bld) [Mass fraction] Hemoglobin A1c percentage High 4.5-6.2 [facility] Comment on above: ADA RECOMMENDED LIMI T 4.0 - 6.0ADA THERAPEUTIC TARGET < 7.0ACTION SUGGESTED> 7.0 HbA1c (Bld) [Mass fraction] 7.0 % High 4.5-6.2 [facility] Comment on above: ADA RECOMMENDED LIMI T 4.0 - 6.0ADA THERAPEUTIC TARGET < 7.0ACTION SUGGESTED> 7.0 Hemoglobin [Mass/volume] in Bloodon 11-01-2024 Hemoglobin (Bld) [Mass/Vol] 13.2 g/dL 12.0-16.0 [facility] Laboratory - Chemistry and C hemistry - challengeon 11-01-2024 Albumin [Mass/Vol] 3.3 g/dL Low 3.4-5.0 [facility] ALP [Catalytic activity/Vol] 89 U/L 46-116 [facility] ALT [Catalytic activity/Vol] 43 U/L 14-59 [facility] AST [Catalytic activity/Vol] 26 U/L 15-37 [facility] Bilirubin [Mass/Vol] 0.3 mg/dL 0.2-1.0 [facility] Calcium [Mass/Vol] 9.0 mg/dL 8.5-10.1 [facility] Chloride [Moles/Vol] 109 mmol/L High 98-107 [facility] Cholesterol [Mass/Vol] 111 mg/dL <=200 [facility] Cholesterol in HDL [Mass/Vol] 59 mg/dL 40-60 [facility] Comment on above: > or =60 mg/dl - LOW CARDIOVASCULAR RISK<40 mg/dl - HIGH CARDIOVASCULAR RISK CO2 [Moles/Vol] 29.4 mmol/L 21.0-32.0 [facility] Creatinine [Mass/Vol] 1.39 mg/dL High 0.55-1.02 [facility] Free T4 [Mass/Vol] 1.14 ng/dL 0.76-1.46 [facility] GFR/1.73 sq M.predicted MDRD (S/P/Bld) [Vol rate/Area] 44 mL/min/{1.73_m2} Low >=60 mL/min/1.73 m 2 [facility] Glucose [Mass/Vol] 88 mg/dL 74-106 [facility] Potassium [Moles/Vol] 5.4 mmol/L High 3.5-5.1 [facility] Protein [Mass/Vol] 6.7 g/dL 6.4-8.2 [facility] Sodium [Moles/Vol] 143 mmol/L 136-145 [facility] Triglyceride [Mass/Vol] 114 mg/dL <=150 [facility] TSH Qn 0.958 m[IU]/L 0.358-3.740 [facility] Urea nitrogen [Mass/Vol] 44.0 mg/dL High 7.0-18.0 [facility] Urea nitrogen/Creatinine [Mass ratio] 31.7 mg/mg [facility] Laboratory - Hematology and Cell countson 11-01-2024 Band form neutrophils/100 WBC (Bld) 1.0 % 0-5 [facility] Lymphocytes/100 WBC (Bld) 66.0 % High 20.5-60.0 [facility] Monocytes/100 WBC (Bld) 7.0 % 1.7-12.0 [facility] Leukocytes [#/volume] correc andreina for nucleated erythrocytes in Blood by Automated counon 11-01-2024 WBC corrected for nucl RBC Auto (Bld) [#/Vol] 21.6 10 3/uL High 4.0-11.0 [facility] MCH Auto (RBC) [Entitic mass ]on 11-01-2024 MCH (RBC) [Entitic mass] 30.2 pg 26.7-34.0 [facility] MCHC Auto (RBC) [Mass/Vol]on 11-01-2024 MCHC (RBC) [Mass/Vol] 31.8 g/dL 29.9-35.2 [facility] MCV Auto (RBC) [Entitic vol] on 11-01-2024 MCV (RBC) [Entitic vol] 95.0 fL 81.0-99.0 F [facility] Microalbumin [Mass/volume] i n Urineon 11-01-2024 Albumin DL <= 20 mg/L (U) [Mass/Vol] Microalbumin [Mass/volume] in Urine <=30.0 [facility] Albumin DL <= 20 mg/L (U) [Mass/Vol] 1.3 mg/dL <=30.0 [facility] No Panel Informationon 11-01 Absolute Basophils (Manual) 0.43 10 3/uL High 0.00-0.10 [facility] Band Neutrophils # (Manual) 0.2 10 3/uL 0.0-0.3 [facility] Eosinophils # (Manual) 0.21 10 3/uL 0.00-0.70 [facility] Free Triiodothyronine 1.62 pg/mL Low 2.18-3.98 [facility] Lymphocytes # (Manual) 14.25 10 3/uL High 1.20-3.80 [facility] Monocytes # (Manual) 1.51 10 3/uL High 0.30-0.80 [facility] Segmented Neutrophils # (Manual) 4.96 10 3/uL 1.4-6.5 [facility] Urine Random Creatinine 93.71 mg/dL 20.0 0-300.0 0 [facility] Ovalocyte detectionon 2024 Ovalocytes LM Ql (Bld) Ovalocyte detection [facility] Ovalocytes LM Ql (Bld) 1+ [facility] Platelet mean volume Auto (B ld) [Entitic vol]on 11-01-2024 Platelet mean volume (Bld) [Entitic vol] 11.0 fL 9.5-13.5 [facility] Platelets Auto (Bld) [#/Vol] on 11-01-2024 Platelets (Bld) [#/Vol] 239 10 3/uL 150-450 [facility] Poikilocytosis [Presence] in Blood by Light microscopyon 11-01-2024 Poikilocytosis LM Ql (Bld) Poikilocytosis [Presence] in Blood by Light microscopy [facility] Poikilocytosis LM Ql (Bld) 1+ [facility] RBC Auto (Bld) [#/Vol]on RBC (Bld) [#/Vol] 4.37 10 6/uL 4.20-5.40 [facility] Segmented neutrophils/100 WB C Manual cnt (Bld)on 11-01-2024 Segmented neutrophils/100 WBC (Bld) Manual blood segmented neutrophils/100 leukocytes Low 43.0-75.0 [facility] Segmented neutrophils/100 WBC (Bld) 23.0 % Low 43.0-75.0 [facility] Serum or plasma albumin/glob ulin mass ratioon 11-01-2024 Albumin/Globulin [Mass ratio] Serum or plasma albumin/globulin mass ratio [facility] Albumin/Globulin [Mass ratio] 1.0 {ratio} [facility] Serum or plasma anion gap de terminationon 11-01-2024 Anion gap [Moles/Vol] Serum or plasma an ion gap determination [facility] Anion gap [Moles/Vol] 10.0 mmol/L [facility] Serum or plasma total choles terol/high density lipoprotein (HDL) cholesterol mass faustino 11-01-2024 Cholesterol.total/Choles terol in HDL [Mass ratio] Serum or plasma total cholesterol/high density lipoprotein (HDL) cholesterol mass rat [facility] Comment on above: 3.3 - 4.4 LOW RISK4. 4 - 7.1 AVERAGE RISK7.1 - 11.0 MODERATE RISK>11.0 HIGH RISK Cholesterol.total/Choles terol in HDL [Mass ratio] 1.9 {ratio} [facility] Comment on above: 3.3 - 4.4 LOW RISK4. 4 - 7.1 AVERAGE RISK7.1 - 11.0 MODERATE RISK>11.0 HIGH RISK Urine microalbumin/creatinin e mass ratioon 11-01-2024 Albumin/Creatinine DL <= 20 mg/L (U) [Mass ratio] Urine microalbumin/creatini ne mass ratio 0.0-29.9 [facility] Comment on above: NO MICROALBUMINURIA 0-29 MG/GCLINICAL MICROALBUMINURIA 30-300 MG/GMACROALBUMINURIA >300 MG/G Albumin/Creatinine DL <= 20 mg/L (U) [Mass ratio] 13.8 mg/g 0.0-29.9 [facility] Comment on above: NO MICROALBUMINURIA 0-29 MG/GCLINICAL MICROALBUMINURIA 30-300 MG/GMACROALBUMINURIA >300 MG/G Reminderson 09-15-2024 Reminders Reminders From: Lori Bledsoe To: EU - Administrative; Sent: 02/24/2024 10:44:10 EDT Show up: 06/25/2024 09:43:00 EST Subject: 6 MO F/U Due Date/Time: 08/26/2024 09:43:00 EST Reminder/Recall PT SEEN ON 02/24/2024 BY JINNY IN [place]. PT WILL NEED A 6 MO F/U. APPT DUE BY 08/26/2024 NO ANSWER Pt is scheduled for 02/14/25. Normal [facility] Laboratory - Chemistry and C hemistry - challengeon 09-03-2024 Bilirubin Ql (U) Negative NEGATIVE [facility] Glucose (U) [Mass/Vol] Negative NEGATIVE [facility] Ketones Ql (U) TRACE mg/dL Abnormal NEGATIVE [facility] pH (U) 5.5 [pH] 5.0-9.0 [facility] Specific gravity (U) [Rel density] 1.025 1.005-1.025 [facility] Urobilinogen Qn (U) 0.2 {Jose'U}/dL 0.2-1.0 [facility] Laboratory - Specimen inform ationon 09-03-2024 Appearance (U) CLEAR CLEAR [facility] Color (U) LT YELLOW YELLOW [facility] Laboratory - Urinalysison Leukocyte esterase Test strip Ql (U) Negative NEGATIVE [facility] Nitrite Ql (U) Negative NEGATIVE [facility] Protein Ql (U) TRACE mg/dL NEG/TRACE [facility] No Panel Informationon 09-03 Urine Occult Blood Negative NEGATIVE [facility] Urine Cultureon 09-03-2024 Bacteria identified Cx Nom (U) 75,000 colonies/ml mixed bacterial skin contaminants 2 Days PERFORMED BY: [place] [address] PATHOLOGIST INSURANCE ACCOUNT REPRESENTATIVE IDA ARMIJO M.D. Normal [facility] Comment on above: Performed By: #### C UU #### [address] Ambulatory Visit Summaryon 0 08-16-2024 Ambulatory Visit Summary Ambulatory Visi t Summary KATHY WASHBURN Car :1940 Visit Date:08/16/2024 Ambulatory Visit Instructions Your [...] SUSAN RANDOLPH PA-C Where: [facility] [address] [place] [address]- You Need to Schedule the Following Appointments Follow Up with JAX PA-C, SUSAN E, URL When: In 6 months Where: [address] [place] [address] Medications What How Much When Instructions New estradiol topical (Estrace 0.1 mg/ g Cream) See instructions Refills: 6 apply a pea-sized amount vaginally and around the urethra 3x per week for UTI prevention Pickup at [facility] Unchanged acetaminophen-oxycodo ne (acetaminophen-oxycod one 325 [...] Discount D (more content not included)... Normal [facility] Urology Office/Clinic Noteon 08-16-2024 Urology Office/Clinic Note Urology Office/Clinic Note Chief Complaint Frequent UTI HPI Staff 84 year old female patient her here for 6 month follow up. Previous Dx: OAB, Mixed Incontinence & Recurrent UTI *started trospium 20 mg bid last , d/c Oxybutynin Filled Cipro 7x in past [...] will consider cystoscopy w possible UD. Ordered: [id number] Measure Post Void residual urine and/or bladder capacity by US- non-imaging Complex E&M Add on G2211 E&M of Est. Patient Moderate 30-39 Min 36442 Urnls Dip Stick Auto w/o Microscopy POC 88129 2. Urgency incontinence (N39.41: Urge incontinence) S/p Botox 100u 08/30/21. Childs sxs only improved for a few weeks [...] E&M of Est. Patient Moderate 30-39 Min 35127 Orders: estradiol topical, See Instructions, 42.5 gm, Refill(s) 6, apply a pea-sized amount vaginally and around the urethra 3x per week for UTI prevention, [facility], 178, cm, 08/16/24 9:10:00 EST, Height/Length Dosing, 103, kg, 08/16/24 9:10:00 EST, Weight Do... Follow-up With When Contact Information SUSAN RANDOLPH PA-C, URL In 6 months [address] [place] [address] Additional Instructions: Patient Education Antibiotic [...] ne 325 (more content not included)... Normal [facility] Comment on above: Result Comment: Elec tronically Signed By: SUSAN RANDOLPH PA-C\.br\Date and Time Signed: 08/16/24 10:05 EST Appearance of UrineOrdered B y: Ayanna Vicente on 08-10-2024 Appearance (U) Urine appearance Abnormal Clear [facility] Bacteria [Presence] in Urine by AutomatedOrdered By: Ayanna Vciente on 08-10-2024 Bacteria Auto Ql (U) Bacteria [Presence] in Urine by Automated None Seen [facility] Bilirubin Test strip Ql (U)O rdered By: Ayanna Vicente on 08-10-2024 Bilirubin Ql (U) Bilirubin.total [Presence] in Urine by Test strip Negative [facility] Color Auto (U)Ordered By: Vasile Vicente on 08-10-2024 Color (U) Color of Urine by Auto Abnormal Yellow [facility] Dipstick and Microscopicon 0 08-10-2024 Appearance (U) Cloudy Critically abnormal Clear [facility] Comment on above: Order Comment: Name Collection Type:: Clean-Voided Midstream Performed By: #### A DDONUAPLUS, CUU #### [address] Bacteria,Urine None Seen Normal None Seen [facility] Comment on above: Order Comment: Name Collection Type:: Clean-Voided Midstream Performed By: #### A DDONUAPLUS, CUU #### [place] [address] [place] Bilirubin,Urine Negative Normal Negative [facility] Comment on above: Order Comment: Name Collection Type:: Clean-Voided Midstream Performed By: #### A DDONUAPLUS, CUU #### [address] Color (U) Dark-Yellow Critically abnormal Yellow [facility] Comment on above: Order Comment: Name Collection Type:: Clean-Voided Midstream Performed By: #### A DDONUAPLUS, CUU #### [place] [address] [place] Glucose Ql (U) Normal Normal Normal [facility] Comment on above: Order Comment: Name Collection Type:: Clean-Voided Midstream Performed By: #### A DDONUAPLUS, CUU #### [place] [address] [place] Hyaline Casts,Urine 0 [LPF] Normal 0-8 [facility] Comment on above: Order Comment: Name Collection Type:: Clean-Voided Midstream Performed By: #### A DDONUAPLUS, CUU #### [place] [address] [place] Ketones Ql (U) Negative Normal Negative [facility] Comment on above: Order Comment: Name Collection Type:: Clean-Voided Midstream Performed By: #### A DDONUAPLUS, CUU #### [place] [address] [place] Leukocyte esterase Test strip Ql (U) 4+ High Negative [facility] Comment on above: Order Comment: Name Collection Type:: Clean-Voided Midstream Performed By: #### A DDONUAPLUS, CUU #### [address] Mucus,Urine Rare Normal [facility] Comment on above: Order Comment: Name Collection Type:: Clean-Voided Midstream Result Comment: PERF ORMED BY: [place] [address] PATHOLOGIST INSURANCE ACCOUNT REPRESENTATIVE IDA ARMIJO M.D. Performed By: #### A DDONUAPLUS, CUU #### [address] Nitrite,Urine Positive High Negative [facility] Comment on above: Order Comment: Name Collection Type:: Clean-Voided Midstream Performed By: #### A DDONUAPLUS, CUU #### [address] Occult Blood,Urine Negative Normal Negative [facility] Comment on above: Order Comment: Name Collection Type:: Clean-Voided Midstream Result Comment: PERF ORMED BY: [place] [address] PATHOLOGIST INSURANCE ACCOUNT REPRESENTATIVE IDA ARMIJO M.D. Performed By: #### A DDONUAPLUS, CUU #### [address] pH (U) 6.0 [pH] Normal 5.0-9.0 [facility] Comment on above: Order Comment: Name Collection Type:: Clean-Voided Midstream Performed By: #### A DDONUAPLUS, CUU #### [place] [address] [place] Protein (U) [Mass/Vol] 30 mg/dL High Negative [facility] Comment on above: Order Comment: Name Collection Type:: Clean-Voided Midstream Performed By: #### A DDONUAPLUS, CUU #### [address] [place] [address] [place] RBC,Urine 1 [HPF] Normal 0-4 [facility] Comment on above: Order Comment: Name Collection Type:: Clean-Voided Midstream Performed By: #### A DDONUAPLUS, CUU #### [address] Specificy [place],Urine 1.022 Normal 1.001-1.030 [facility] Comment on above: Order Comment: Name Collection Type:: Clean-Voided Midstream Performed By: #### A DDONUAPLUS, CUU #### [address] Squamous Epithelial Cell,Urine 1 [HPF] Normal 0-2 [facility] Comment on above: Order Comment: Name Collection Type:: Clean-Voided Midstream Performed By: #### A DDONUAPLUS, CUU #### [address] Urobilinogen,Urine Normal Normal Normal [facility] Comment on above: Order Comment: Name Collection Type:: Clean-Voided Midstream Performed By: #### A DDONUAPLUS, CUU #### [address] WBC CLUMP, Urine Many High None Seen [facility] Comment on above: Order Comment: Name Collection Type:: Clean-Voided Midstream Performed By: #### A DDONUAPLUS, CUU #### [address] WBC,Urine Innumerable High 0-4 [facility] Comment on above: Order Comment: Name Collection Type:: Clean-Voided Midstream Performed By: #### A DDONUAPLUS, CUU #### [address] Epithelial cells.squamous [# /area] in Urine sediment by Automated countOrdered By: Ayanna Vicente on 08-10-2024 Epithelial cells.squamous Auto (Urine sed) [#/Area] Epithelial cells.squamous [#/area] in Urine sediment by Automated count 0-2 [facility] Erythrocytes [#/area] in Uri ne sediment by Automated countOrdered By: Ayanna Vicente on 08-10-2024 RBC Auto (Urine sed) [#/Area] Erythrocytes [#/area] in Urine sediment by Automated count 0-4 [facility] Glucose [Mass/volume] in Uri ne by Test stripOrdered By: Ayanna Vicente on 08-10-2024 Glucose Test strip (U) [Mass/Vol] Glucose [Mass/volume] in Urine by Test strip Normal [facility] Hemoglobin Test strip Ql (U) Ordered By: Ayanna Vicente on 08-10-2024 Hemoglobin Ql (U) Hemoglobin [Presence ] in Urine by Test strip Negative [facility] Hyaline casts [#/area] in Ur ine sediment by Automated countOrdered By: Ayanna Vicente on 08-10-2024 Hyaline casts Auto (Urine sed) [#/Area] Hyaline casts [#/area] in Urine sediment by Automated count 0-8 [facility] Ketones Test strip Ql (U)Ord ered By: Ayanna Viecnte on 08-10-2024 Ketones Ql (U) Ketones [Presence] i n Urine by Test strip Negative [facility] Leukocyte clumps [Presence] in Urine by AutomatedOrdered By: Ayanna Vicente on 08-10-2024 Leukocyte clumps Auto Ql (U) Leukocyte clumps [Presence] in Urine by Automated High None Seen [facility] Leukocyte esterase [Presence ] in Urine by Test stripOrdered By: Ayanna Vicente on 08-10-2024 Leukocyte esterase Test strip Ql (U) Leukocyte esterase [Presence] in Urine by Test strip High Negative [facility] Leukocytes [#/area] in Urine sediment by Automated countOrdered By: Ayanna Vicente on 08-10-2024 WBC Auto (Urine sed) [#/Area] Leukocytes [#/area] in Urine sediment by Automated count High 0-4 [facility] Mucus [Presence] in Urine by AutomatedOrdered By: Ayanna Vicente on 08-10-2024 Mucus Auto Ql (U) Mucus [Presence] in Urine by Automated [facility] Nitrite Test strip Ql (U)Ord ered By: Ayanna Vicente on 08-10-2024 Nitrite Ql (U) Nitrite [Presence] i n Urine by Test strip High Negative [facility] Protein Test strip (U) [Mass /Vol]Ordered By: Ayanna Vicente on 08-10-2024 Protein (U) [Mass/Vol] Protein [Mass/vol ume] in Urine by Test strip High Negative [facility] Specific gravity Test strip (U) [Rel density]Ordered By: Ayanna Vicente on 08-10-2024 Specific gravity (U) [Rel density] Specific gravity of Urine by Test strip 1.001-1.030 [facility] Urine Cultureon 08-10-2024 Bacteria identified Cx Nom (U) ORGANISM: Escherichia coli (O:ESCCOL) [place] Count >100,000 Aerobic CORNELIA Charge ([id number]) ---- [...] RESISTANT TO ALL B-LACTAM DRUGS. PERFORMED BY: [place] [address] [place], [place] [id number] PATHOLOGIST INSURANCE ACCOUNT REPRESENTATIVE IDA ARMIJO M.D. Normal [facility] Comment on above: Performed By: #### A PERNELL JOINER #### [facility] [address] Urine cultureOrdered By: Aftab Vicente on 08-10-2024 Bacteria identified Cx Nom (U) Escherichia coli Abnormal [facility] Urobilinogen Test strip (U) [Mass/Vol]Ordered By: Ayanna Vicente on 08-10-2024 Urobilinogen (U) [Mass/Vol] Urobilinogen [Mass/volume] in Urine by Test strip Normal [facility] pH Test strip (U)Ordered By: Ayanna Vicente on 08-10-2024 pH (U) pH of Urine by Test strip 5.0-9.0 [facility] ALL THYROID STIM HORMONEon 1 08-23-2023 TSH Qn 2.632 m[IU]/L [facility] Estimated glomerular filtrat ion rate (GFR) non- Americanon 06-22-2024 GFR/1.73 sq M.predicted among non-blacks MDRD (S/P/Bld) [Vol rate/Area] Estimated glomerular filtration rate (GFR) non- Low >=60 mL/min/1.73 m 2 [facility] Laboratory - Chemistry and C hemistry - challengeon 06-22-2024 Calcium [Mass/Vol] 9.2 mg/dL 8.5-10.1 [facility] Chloride [Moles/Vol] 105 mmol/L 98-107 [facility] CO2 [Moles/Vol] 30.0 mmol/L 21.0-32.0 [facility] Cobalamin (Vitamin B12) [Mass/Vol] 721 pg/mL 232-1245 [facility] Comment on above: Performed at: [facility] - [facility] [address] [id number] Director: Narinder Elam PhD, Phone: [phone] Creatinine [Mass/Vol] 1.36 mg/dL High 0.55-1.02 [facility] GFR/1.73 sq M.predicted MDRD (S/P/Bld) [Vol rate/Area] 45 mL/min/{1.73_m2} Low >=60 mL/min/1.73 m 2 [facility] Glucose [Mass/Vol] 125 mg/dL High 74-106 [facility] Potassium [Moles/Vol] 4.8 mmol/L 3.5-5.1 [facility] Sodium [Moles/Vol] 141 mmol/L 136-145 [facility] TSH Qn 2.632 m[IU]/L 0.358-3.740 [facility] Urea nitrogen [Mass/Vol] 28.0 mg/dL High 7.0-18.0 [facility] Urea nitrogen/Creatinine [Mass ratio] 20.6 mg/mg [facility] Serum or plasma anion gap de terminationon 06-22-2024 Anion gap [Moles/Vol] Serum or plasma an ion gap determination [facility] Basophils/100 WBC Manual cnt (Bld)on 06-15-2024 Basophils/100 WBC (Bld) Basophils/100 leukocytes in Blood by Manual count 0.2-2.0 [facility] Eosinophils/100 WBC Manual c nt (Bld)on 06-15-2024 Eosinophils/100 WBC (Bld) Eosinophils/100 leukocytes in Blood by Manual count 0.9-7.0 [facility] Erythrocyte distribution wid th Auto (RBC) [Ratio]on 06-15-2024 Erythrocyte distribution width (RBC) [Ratio] Erythrocyte distribution width [Ratio] by Automated count 11.0-15.0 [facility] Estimated glomerular filtrat ion rate (GFR) non- Americanon 06-15-2024 GFR/1.73 sq M.predicted among non-blacks MDRD (S/P/Bld) [Vol rate/Area] Estimated glomerular filtration rate (GFR) non- Low >=60 mL/min/1.73 m 2 [facility] Globulin Calc (S) [Mass/Vol] on 06-15-2024 Globulin (S) [Mass/Vol] Serum globulin measurement by calculation (mass/volume) [facility] Hematocrit Auto (Bld) [Volum e fraction]on 06-15-2024 Hematocrit (Bld) [Volume fraction] Hematocrit [Volume Fraction] of Blood by Automated count 36.0-48.0 [facility] Hemoglobin [Mass/volume] in Bloodon 06-15-2024 Hemoglobin (Bld) [Mass/Vol] Hemoglobin [Mass/volume] in Blood 12.0-16.0 [facility] Curt 06-15-2024 L - -------- Specimen: [id number] Received: 06/16/24 Status: JEFFERY Lemon Num: [id number] Spec Type: Impression Subm Dr: Tri Ag DO Tissues: PATHPER Procedures: PATHREVIEW -------- Age/ Patient Sex Location Account Attending Physician -------- Kathy Washburn 83/F LABELL [id number] Tri Ag DO -------- SPEC NUM: [id number] RECD: 06/16/24 STATUS: JEFFERY LEMON NUM: [id number] JESSICA: 06/15/24- SUBM DR: Tri Ag DO ENTERED: 06/16/24-[address]: Angi Astudillo SPEC TYPE: Impression DEPT: [facility] Lance ENTERED BY: [id number] RECV BY: [id number] ORDERED: PATHREVIEW ORDERED: PATHREVIEW Pathologist Review Peripheral blood smear evaluation: - Severe lymphocytosis with atypical lymphocytes and smudges consistent with CLL, flow cytometry if clinically indicated. - Red blood cell and Platelet: Unremarkable. CPT: 59332 Jose Angel Kc MD 06/16/24 -------- -------- Specimen: [id number] Received: 06/16/24 Status: JEFFERY Argenis Num: [id number] Spec Type: Impression Subm Dr: Tri Ag DO Tissues: PATHPER Procedures: PATHREVIEW -------- Patient: Kathy Washburn [id number] (Continued) -------- Signed (signature on file) Jose Angel Kc MD 06/16/24 1635 Normal [facility] Laboratory - Chemistry and C hemistry - challengeon 06-15-2024 Albumin [Mass/Vol] 3.5 g/dL 3.4-5.0 [facility] ALP [Catalytic activity/Vol] 103 U/L 46-116 [facility] ALT [Catalytic activity/Vol] 34 U/L 14-59 [facility] AST [Catalytic activity/Vol] 25 U/L 15-37 [facility] Bilirubin [Mass/Vol] 0.3 mg/dL 0.2-1.0 [facility] Calcium [Mass/Vol] 9.1 mg/dL 8.5-10.1 [facility] Chloride [Moles/Vol] 108 mmol/L High 98-107 [facility] CO2 [Moles/Vol] 28.4 mmol/L 21.0-32.0 [facility] Creatinine [Mass/Vol] 1.42 mg/dL High 0.55-1.02 [facility] GFR/1.73 sq M.predicted MDRD (S/P/Bld) [Vol rate/Area] 43 mL/min/{1.73_m2} Low >=60 mL/min/1.73 m 2 [facility] Glucose [Mass/Vol] 140 mg/dL High 74-106 [facility] Potassium [Moles/Vol] 4.3 mmol/L 3.5-5.1 [facility] Protein [Mass/Vol] 6.9 g/dL 6.4-8.2 [facility] Sodium [Moles/Vol] 143 mmol/L 136-145 [facility] Urea nitrogen [Mass/Vol] 31.0 mg/dL High 7.0-18.0 [facility] Urea nitrogen/Creatinine [Mass ratio] 21.8 mg/mg [facility] Laboratory - Hematology and Cell countson 06-15-2024 Lymphocytes/100 WBC (Bld) 54.0 % 20.5-60.0 [facility] Monocytes/100 WBC (Bld) 0.0 % Low 1.7-12.0 F [facility] Leukocytes [#/volume] correc andreina for nucleated erythrocytes in Blood by Automated counon 06-15-2024 WBC corrected for nucl RBC Auto (Bld) [#/Vol] Leukocytes [#/volume] corrected for nucleated erythrocytes in Blood by Automated coun High 4.0-11.0 [facility] MCH Auto (RBC) [Entitic mass ]on 06-15-2024 MCH (RBC) [Entitic mass] MCH [Entitic ma ss] by Automated count 26.7-34.0 [facility] MCHC Auto (RBC) [Mass/Vol]on 06-15-2024 MCHC (RBC) [Mass/Vol] MCHC [Mass/volume] by Automated count 29.9-35.2 [facility] MCV Auto (RBC) [Entitic vol] on 06-15-2024 MCV (RBC) [Entitic vol] MCV [Entitic vol ume] by Automated count 81.0-99.0 [facility] No Panel Informationon 06-15 Absolute Basophils (Manual) 0.22 10 3/uL High 0.00-0.10 [facility] Add Manual Differential See comment [facility] Comment on above: SEE SCANNED REPORT Eosinophils # (Manual) 0.44 10 3/uL 0.00-0.70 [facility] Lymphocytes # (Manual) 11.88 10 3/uL High 1.20-3.80 [facility] Monocytes # (Manual) 0.00 10 3/uL Low 0.30-0.80 [facility] Reactive Lymphocytes 1.76 [facility] Reactive Lymphocytes 8.0 % [facility] Segmented Neutrophils # (Manual) 7.70 10 3/uL High 1.4-6.5 [facility] Platelet mean volume Auto (B ld) [Entitic vol]on 06-15-2024 Platelet mean volume (Bld) [Entitic vol] Platelet mean volume [Entitic volume] in Blood by Automated count 9.5-13.5 [facility] Platelets Auto (Bld) [#/Vol] on 06-15-2024 Platelets (Bld) [#/Vol] Platelets [#/vol ume] in Blood by Automated count 150-450 [facility] RBC Auto (Bld) [#/Vol]on RBC (Bld) [#/Vol] Erythrocytes [#/volume] in Blood by Automated count 4.20-5.40 [facility] Segmented neutrophils/100 WB C Manual cnt (Bld)on 06-15-2024 Segmented neutrophils/100 WBC (Bld) Manual blood segmented neutrophils/100 leukocytes Low 43.0-75.0 [facility] Serum or plasma albumin/glob ulin mass ratioon 06-15-2024 Albumin/Globulin [Mass ratio] Serum or plasma albumin/globulin mass ratio [facility] Serum or plasma anion gap de terminationon 06-15-2024 Anion gap [Moles/Vol] Serum or plasma an ion gap determination [facility] Smudge cell detectionon Smudge cells LM Ql (Bld) Smudge cell detection [facility] Basophils Auto (Bld) [#/Vol] on 05-26-2024 Basophils (Bld) [#/Vol] Automated basoph il count <0.11 [facility] Basophils/100 WBC Auto (Bld) on 05-26-2024 Basophils/100 WBC (Bld) Automated basophil % [facility] Blood manual differential co mment interpretation narrativeon 05-26-2024 Manual differential comment Himanshu (Bld) [Interp] Blood manual differential comment interpretation narrative [facility] CBC W Auto Differential pane l (Bld)on 05-26-2024 Basophils (Bld) [#/Vol] 0.00 10*3/uL Normal <0.11 [facility] Comment on above: Order Comment: Speci men Type: BLOOD SPECIMEN Ordering Facility: [facility] Address: [address] [place] [address] Performed By: #### 5 7021-8 #### DEMUNDO [facility] CLIA [id number] [address] [place] [address] LAB CLIA [id number] [address] [place] [address] [place] Basophils/100 WBC (Bld) 0.0 % Normal [facility] [place] Comment on above: Order Comment: Speci men Type: BLOOD SPECIMEN Ordering Facility: [facility] Address: [address] [place] [address] Performed By: #### 5 7021-8 #### [facility] CLIA [id number] [address] [place] [address] LAB CLIA [id number] [address] [place] [address] [place] Differential cell count method Nom (Bld) Manual Normal [facility] Comment on above: Order Comment: Speci men Type: BLOOD SPECIMEN Ordering Facility: [facility] Address: [address] [place] [address] Performed By: #### 5 7021-8 #### [facility] CLIA [id number] [address] [place] [address] LAB CLIA [id number] [address] [place] [address] [place] Eosinophils (Bld) [#/Vol] 0.19 10*3/uL Normal <0.46 [facility] Comment on above: Order Comment: Speci men Type: BLOOD SPECIMEN Ordering Facility: [facility] Address: [address] [place] [address] Performed By: #### 5 7021-8 #### [facility] CLIA [id number] [address] [place] [address] LAB CLIA [id number] [address] [place] [address] [place] Eosinophils/100 WBC (Bld) 1.0 % Normal [facility] Comment on above: Order Comment: Speci men Type: BLOOD SPECIMEN Ordering Facility: [facility] Address: [address] [place] [address] Performed By: #### 5 7021-8 #### [facility] CLIA [id number] [address] [place] [address] LAB CLIA [id number] [address] [place] [address] [place] Erythrocyte distribution width (RBC) [Ratio] 14.2 % Normal 11.5-15.0 [facility] Comment on above: Order Comment: Speci men Type: BLOOD SPECIMEN Ordering Facility: [facility] Address: [address] [place] [address] Performed By: #### 5 7021-8 #### [facility] CLIA [id number] [address] [place] [address] LAB CLIA [id number] [address] [place] [address] [place] Hematocrit (Bld) [Volume fraction] 38.4 % Normal 36.0-46.0 [facility] Comment on above: Order Comment: Speci men Type: BLOOD SPECIMEN Ordering Facility: [facility] Address: [address] [place] [address] Performed By: #### 5 7021-8 #### [facility] CLIA [id number] [address] [place] [address] LAB CLIA [id number] [address] [place] [address] [place] Hemoglobin (Bld) [Mass/Vol] 12.7 g/dL Normal 11.5-15.5 [facility] Comment on above: Order Comment: Speci men Type: BLOOD SPECIMEN Ordering Facility: [facility] Address: [address] [place] [address] Performed By: #### 5 7021-8 #### [facility] CLIA [id number] [address] [place] [address] LAB CLIA [id number] [address] [place] [address] [place] Lymphocytes (Bld) [#/Vol] 14.61 10*3/uL High 1.00-4.00 [facility] Comment on above: Order Comment: Speci men Type: BLOOD SPECIMEN Ordering Facility: [facility] Address: [address] [place] [address] Performed By: #### 5 7021-8 #### [facility] CLIA [id number] [address] [place] [address] LAB CLIA [id number] [address] [place] [address] [place] Lymphocytes/100 WBC (Bld) 76.0 % Normal [facility] Comment on above: Order Comment: Speci men Type: BLOOD SPECIMEN Ordering Facility: [facility] Address: [address] [place] [address] Performed By: #### 5 7021-8 #### [facility] CLIA [id number] [address] [place] [address] LAB CLIA [id number] [address] [place] [address] [place] MCH (RBC) [Entitic mass] 30.0 pg Normal 26.0-34.0 [facility] Comment on above: Order Comment: Speci men Type: BLOOD SPECIMEN Ordering Facility: [facility] Address: [address] [place] [address] Performed By: #### 5 7021-8 #### [facility] CLIA [id number] [address] [place] [address] LAB CLIA [id number] [address] [place] [address] [place] MCHC (RBC) [Mass/Vol] 33.1 g/dL Normal 30.5-36.0 [facility] Comment on above: Order Comment: Speci men Type: BLOOD SPECIMEN Ordering Facility: [facility] Address: [address] [place] [address] Performed By: #### 5 7021-8 #### EDMUNDO [facility] CLIA [id number] [address] [place] [address] LAB CLIA [id number] [address] [place] [address] [place] MCV (RBC) [Entitic vol] 90.8 fL Normal 80.0-100.0 [facility] [place] Comment on above: Order Comment: Speci men Type: BLOOD SPECIMEN Ordering Facility: [facility] Address: [address] [place] [address] Performed By: #### 5 7021-8 #### [facility] CLIA [id number] [address] [place] [address] LAB CLIA [id number] [address] [place] [address] [place] Monocytes (Bld) [#/Vol] 0.19 10*3/uL Normal <0.87 [facility] Comment on above: Order Comment: Speci men Type: BLOOD SPECIMEN Ordering Facility: [facility] Address: [address] [place] [address] Performed By: #### 5 7021-8 #### [facility] CLIA [id number] [address] [place] [address] LAB CLIA [id number] [address] [place] [address] [place] Monocytes/100 WBC (Bld) 1.0 % Normal [facility] [place] Comment on above: Order Comment: Speci men Type: BLOOD SPECIMEN Ordering Facility: [facility] Address: [address] [place] [address] Performed By: #### 5 7021-8 #### [facility] CLIA [id number] [address] [place] [address] LAB CLIA [id number] [address] [place] [address] [place] Neutrophils (Bld) [#/Vol] 4.23 10*3/uL Normal 1.45-7.50 [facility] Comment on above: Order Comment: Speci men Type: BLOOD SPECIMEN Ordering Facility: [facility] Address: [address] [place] [address] Performed By: #### 5 7021-8 #### [facility] CLIA [id number] [address] [place] [address] LAB CLIA [id number] [address] [place] [address] [place] Neutrophils/100 WBC (Bld) 22.0 % Normal [facility] Comment on above: Order Comment: Speci men Type: BLOOD SPECIMEN Ordering Facility: [facility] Address: [address] [place] [address] Performed By: #### 5 7021-8 #### [facility] CLIA [id number] [address] [place] [address] LAB CLIA [id number] [address] [place] [address] [place] Nucleated RBC (Bld) [#/Vol] 10*3/uL Normal <0.01 [facility] Comment on above: Order Comment: Speci men Type: BLOOD SPECIMEN Ordering Facility: [facility] Address: [address] [place] [address] Performed By: #### 5 7021-8 #### [facility] CLIA [id number] [address] [place] [address] LAB CLIA [id number] [address] [place], [place] [id number] [place] Nucleated RBC/100 WBC (Bld) [Ratio] 0.0 /100 WBC Normal [facility] Comment on above: Order Comment: Speci men Type: BLOOD SPECIMEN Ordering Facility: [facility] Address: [address] [place] [address] Performed By: #### 5 7021-8 #### EDMUNDO [facility] CLIA [id number] [address] [place] [address] LAB CLIA [id number] [address] [place] [address] [place] Ovalocytes LM Ql (Bld) Few Normal [facility] Comment on above: Order Comment: Speci men Type: BLOOD SPECIMEN Ordering Facility: [facility] Address: [address] [place] [address] Performed By: #### 5 7021-8 #### [facility] CLIA [id number] [address] [place] [address] LAB CLIA [id number] [address] [place] [address] [place] Platelet mean volume (Bld) [Entitic vol] 10.4 fL Normal 9.0-12.7 [facility] Comment on above: Order Comment: Speci men Type: BLOOD SPECIMEN Ordering Facility: [facility] Address: [address] [place] [address] Performed By: #### 5 7021-8 #### [facility] CLIA [id number] [address] [place] [address] LAB CLIA [id number] [address] [place] [address] [place] Platelets (Bld) [#/Vol] 244 10*3/uL Normal 150-400 [facility] Comment on above: Order Comment: Speci men Type: BLOOD SPECIMEN Ordering Facility: [facility] Address: [address] [place] [address] Performed By: #### 5 7021-8 #### [facility] CLIA [id number] [address] LAB CLIA [id number] [address] [place] [address] [place] Platelets Estimate (Bld) [#/Vol] Adequate Normal [facility] Comment on above: Order Comment: Speci men Type: BLOOD SPECIMEN Ordering Facility: [facility] Address: [address] [place] [address] Performed By: #### 5 7021-8 #### [facility] CLIA [id number] [address] [place] [address] LAB CLIA [id number] [address] [place] [address] [place] Polychromasia LM Ql (Bld) Slight Normal [facility] Comment on above: Order Comment: Speci men Type: BLOOD SPECIMEN Ordering Facility: [facility] Address: [address] [place] [address] Performed By: #### 5 7021-8 #### [facility] CLIA [id number] [address] [place] [address] LAB CLIA [id number] [address] [place] [address] [place] RBC (Bld) [#/Vol] 4.23 10*6/uL Normal 3.90-5.20 [facility] Comment on above: Order Comment: Speci men Type: BLOOD SPECIMEN Ordering Facility: [facility] Address: [address] [place] [address] Performed By: #### 5 7021-8 #### [facility] CLIA [id number] [address] [place] [address] LAB CLIA [id number] [address] [place] [address] [place] RED CELL MORPH Reviewed: see result s of individual morphologies Normal [facility] Comment on above: Order Comment: Speci men Type: BLOOD SPECIMEN Ordering Facility: [facility] Address: [address] [place] [address] Performed By: #### 5 7021-8 #### [facility] CLIA [id number] [address] [place], [place] [id number] [facility] CLIA [id number] [address] [place] [address] [place] WBC (Bld) [#/Vol] 19.22 10*3/uL High 3.70-11.00 [facility] Comment on above: Order Comment: Speci men Type: BLOOD SPECIMEN Ordering Facility: [facility] Address: [address] [place] [address] Result Comment: No c lot detected.Results checked and verified. Performed By: #### 5 7021-8 #### [facility] CLIA [id number] [address] [place] [address] LAB CLIA [id number] [address] [place] [address] [place] CNOVSPon 05-26-2024 CNOVSP Visit (SP) Office ([place]) ROBERT WASHBURNRA Car ([id number]) 1940 F Date Time Provider Department 05/26/24 2:00 PM CHAD FREITAS HEMASA During your visit today, we recorded the following information about you: Temperature Pulse Respiration Blood pressure 97 degrees 70/minute 16/minute 92/51 Weight Height 105.3 kg 1.727 m Chad Freitas MD 05/26/2024 2:41 PM Signed PATIENT NAME: Kathy Washburn [facility] NO.: [id number] ATTENDING PHYSICIAN: Chad Freitas MD DATE OF [...] sweats - Did mammogram last week at [facility]. - Scheduled to see Intensive Care Anaesthetist PAST MEDICAL HISTORY Diagnosis Date Depression Diabetes [...] Status 05/26 (more content not included)... Normal [facility] metabolic 2000 panelOrdered By: Malka Galvez on 05-26-2024 Albumin [Mass/Vol] 4.1 g/dL 3.9 - 4.9 g/dL [facility] ALP [Catalytic activity/Vol] 107 U/L 34 - 123 U/L [facility] ALT [Catalytic activity/Vol] 21 U/L 7 - 38 U/L [facility] Anion gap [Moles/Vol] 11 mmol/L 8 - 15 mmol/L [facility] AST [Catalytic activity/Vol] 23 U/L 13 - 35 U/L [facility] Bilirubin [Mass/Vol] 0.2 mg/dL 0.2 - 1 .3 mg/dL [facility] Calcium [Mass/Vol] 9.3 mg/dL 8.5 - 10. 2 mg/dL [facility] Chloride [Moles/Vol] 105 mmol/L 98 - 10 7 mmol/L [facility] CO2 [Moles/Vol] 26 mmol/L 22 - 30 mmol/L [facility] Creatinine [Mass/Vol] 1.20 mg/dL High 0.58 - 0.96 mg/dL [facility] GFR/1.73 sq M.predicted among non-blacks MDRD (S/P/Bld) [Vol rate/Area] 46 mL/min/{1.73_m2} Low - PINF [facility] Comment on above: Estimated Glomerular Filtration [...] High 74 - 99 mg/dL [facility] Comment on above: The [place] Diabete s Association (ADA) provides guidance for [...] Standards of Medical Care in Diabetes 2016, [place] [employer]. Diabetes Care. 2016.39(Suppl 1). Interpretation and review of laboratory results Abnormal [facility] Potassium [Moles/Vol] 5.3 mmol/L High 3.7 - 5.1 mmol/L [facility] Protein [Mass/Vol] 6.9 g/dL 6.3 - 8.0 g/dL [facility] Sodium [Moles/Vol] 142 mmol/L 136 - 144 mmol/L [facility] Urea nitrogen [Mass/Vol] 36 mg/dL High 7 - 21 mg/dL [facility] Comprehensive metabolic 2000 panelon 05-26-2024 Albumin [Mass/Vol] 4.1 g/dL Normal 3.9-4.9 [facility] Comment on above: Order Comment: Speci men Type: BLOOD SPECIMEN Ordering Facility: [facility] Address: [address] [place] [address] Performed By: #### 2 532-0, 91377-4 #### [facility] CLIA [id number] [address] [place] [address] ALP [Catalytic activity/Vol] 107 U/L Normal 34-123 [facility] Comment on above: Order Comment: Speci men Type: BLOOD SPECIMEN Ordering Facility: [facility] Address: [address] [place] [address] Performed By: #### 2 532-0, 22067-6 #### [facility] CLIA [id number] [address] [place] [address] ALT [Catalytic activity/Vol] 21 U/L Normal 7-38 [facility] Comment on above: Order Comment: Speci men Type: BLOOD SPECIMEN Ordering Facility: [facility] Address: [address] [place] [address] Performed By: #### 2 532-0, #### [facility] CLIA [id number] [address] [place] [address] Anion gap [Moles/Vol] 11 mmol/L Normal 8-15 [facility] Comment on above: Order Comment: Speci men Type: BLOOD SPECIMEN Ordering Facility: [facility] Address: [address] [id number] Performed By: #### 2 532-0, #### [facility] CLIA [id number] [address] [place] [address] AST [Catalytic activity/Vol] 23 U/L Normal 13-35 [facility] Comment on above: Order Comment: Speci men Type: BLOOD SPECIMEN Ordering Facility: [facility] Address: [address] [place], [place] [address] Performed By: #### 2 532-0, #### [facility] CLIA [id number] [address] [place] [address] Bilirubin [Mass/Vol] 0.2 mg/dL Normal 0.2-1.3 [facility] Comment on above: Order Comment: Speci men Type: BLOOD SPECIMEN Ordering Facility: [facility] Address: [address] [place] [address] Performed By: #### 2 532-0, #### [facility] CLIA [id number] [address] [place] [address] Calcium [Mass/Vol] 9.3 mg/dL Normal 8.5-10.2 [facility] Comment on above: Order Comment: Speci men Type: BLOOD SPECIMEN Ordering Facility: [facility] Address: [address] [place] [address] Performed By: #### 2 532-0, 56073-7 #### [facility] CLIA [id number] [address] [place] [address] Chloride [Moles/Vol] 105 mmol/L Normal 98-107 [facility] Comment on above: Order Comment: Speci men Type: BLOOD SPECIMEN Ordering Facility: [facility] Address: [address] [place] [address] Performed By: #### 2 532-0, 39628-7 #### [facility] CLIA [id number] [address] [place] [address] CO2 [Moles/Vol] 26 mmol/L Normal 22-30 [facility] Comment on above: Order Comment: Speci men Type: BLOOD SPECIMEN Ordering Facility: [facility] Address: [address] [place] [address] Performed By: #### 2 532-0, 13950-0 #### [facility] CLIA [id number] [address] [place] [address] Creatinine [Mass/Vol] 1.20 mg/dL High 0.58-0.96 [facility] Comment on above: Order Comment: Speci men Type: BLOOD SPECIMEN Ordering Facility: [facility] Address: [address] [place] [address] Performed By: #### 2 532-0, 12794-5 #### [facility] CLIA [id number] [address] [place] [address] Creatinine and Glomerular filtration rate.predicted panel (S/P/Bld) 46 mL/min/1.73m??? Low >=60 [facility] Comment on above: Order Comment: Speci men Type: BLOOD SPECIMEN Ordering Facility: [facility] Address: [address] [place] [address] Result Comment: Aimee mated Glomerular Filtration Rate [...] actual GFR. Performed By: #### 2 532-0, 84344-9 #### [facility] CLIA [id number] [address] [place] [address] Glucose [Mass/Vol] 231 mg/dL High 74-99 [facility] Comment on above: Order Comment: Speci men Type: BLOOD SPECIMEN Ordering Facility: [facility] Address: [address] [place] [address] Result Comment: The [place] Diabetes Association (ADA) provides guidance for cutoff [...] Standards of Medical Care in Diabetes 2016, [place] [employer]. Diabetes Care. 2016.39(Suppl 1). Performed By: #### 2 532-0, 66429-3 #### [facility] CLIA [id number] [address] [place] [address] Potassium [Moles/Vol] 5.3 mmol/L High 3.7-5.1 [facility] Comment on above: Order Comment: Speci men Type: BLOOD SPECIMEN Ordering Facility: [facility] Address: [address] [place] [address] Performed By: #### 2 532-0, 75195-5 #### [facility] CLIA [id number] [address] [place] [address] Protein [Mass/Vol] 6.9 g/dL Normal 6.3-8.0 [facility] Comment on above: Order Comment: Speci men Type: BLOOD SPECIMEN Ordering Facility: [facility] Address: [address] [place] [address] Performed By: #### 2 532-0, 35184-5 #### [facility] CLIA [id number] [address] [place] [address] Sodium [Moles/Vol] 142 mmol/L Normal 136-144 [facility] Comment on above: Order Comment: Speci men Type: BLOOD SPECIMEN Ordering Facility: [facility] Address: [address] [place] [address] Performed By: #### 2 532-0, 82329-8 #### [facility] CLIA [id number] [address] [place] [address] Urea nitrogen [Mass/Vol] 36 mg/dL High 7-21 [facility] Comment on above: Order Comment: Speci men Type: BLOOD SPECIMEN Ordering Facility: [facility] Address: [address] [place] [address] Performed By: #### 2 532-0, 94071-4 #### [facility] CLIA [id number] [address] [place] [address] Eosinophils/100 WBC Auto (Bl d)on 05-26-2024 Eosinophils/100 WBC (Bld) Automated eosinophil % [facility] Erythrocyte distribution wid th Auto (RBC) [Ratio]on 05-26-2024 Erythrocyte distribution width (RBC) [Ratio] Erythrocyte distribution width [Ratio] by Automated count 11.-15.0 [facility] Hematocrit Auto (Bld) [Volum e fraction]on 05-26-2024 Hematocrit (Bld) [Volume fraction] Hematocrit [Volume Fraction] of Blood by Automated count 36.0-46.0 [facility] Hemoglobin [Mass/volume] in Bloodon 05-26-2024 Hemoglobin (Bld) [Mass/Vol] Hemoglobin [Mass/volume] in Blood 11.5-15.5 [facility] LACTATE DEHYDROGENASEon 05-14 LDH [Catalytic activity/Vol] 184 U/L 135 - 214 U/L [facility] LDH SerPl-cCncon 05-26-2024 LDH [Catalytic activity/Vol] 184 U/L Normal 135-214 [facility] Comment on above: Order Comment: Speci men Type: BLOOD SPECIMEN Ordering Facility: [facility] Address: [address] [place], [place] [address] Performed By: #### 2 532-0, 19100-6 #### [facility] CLIA [id number] [address] [place] [address] LDH [Catalytic activity/Vol] on 05-26-2024 Interpretation and review of laboratory results Normal [facility] Laboratory - Chemistry and C hemistry - challengeon 05-26-2024 Albumin [Mass/Vol] 4.1 g/dL 3.9-4.9 [facility] ALP [Catalytic activity/Vol] 107 U/L 34-123 [facility] ALT [Catalytic activity/Vol] 21 U/L 7-38 [facility] AST [Catalytic activity/Vol] 23 U/L 13-35 [facility] Bilirubin [Mass/Vol] 0.2 mg/dL 0.2-1.3 [facility] Calcium [Mass/Vol] 9.3 mg/dL 8.5-10.2 [facility] Chloride [Moles/Vol] 105 mmol/L 98-107 [facility] CO2 [Moles/Vol] 26 mmol/L 22-30 [facility] Creatinine [Mass/Vol] 1.20 mg/dL High 0.58-0.96 [facility] Glucose [Mass/Vol] 231 mg/dL High 74-99 [facility] Comment on above: The [place] Diabete s Association (ADA) provides guidance for [...] Standards of Medical Care in Diabetes 2016, [place] [employer]. Diabetes Care. 2016.39(Suppl 1). LDH [Catalytic activity/Vol] 184 U/L 135-214 [facility] Potassium [Moles/Vol] 5.3 mmol/L High 3.7-5.1 [facility] Sodium [Moles/Vol] 142 mmol/L 136-144 [facility] Urea nitrogen [Mass/Vol] 36 mg/dL High 7-21 [facility] Laboratory - Hematology and Cell countson 05-26-2024 Eosinophils (Bld) [#/Vol] 0.19 10*3/uL <0.46 [facility] Leukocytes [#/volume] correc andreina for nucleated erythrocytes in Blood by Automated counon 05-26-2024 WBC corrected for nucl RBC Auto (Bld) [#/Vol] Leukocytes [#/volume] corrected for nucleated erythrocytes in Blood by Automated coun High 3.70-11.00 [facility] Comment on above: No clot detected.Res ults checked and verified. Lymphocytes Auto (Bld) [#/Vo l]on 05-26-2024 Lymphocytes (Bld) [#/Vol] Lymphocytes [#/volume] in Blood by Automated count High 1.00-4.00 [facility] Lymphocytes/100 WBC Auto (Bl d)on 05-26-2024 Lymphocytes/100 WBC (Bld) Lymphocytes/100 leukocytes in Blood by Automated count [facility] MCH Auto (RBC) [Entitic mass ]on 05-26-2024 MCH (RBC) [Entitic mass] MCH [Entitic ma ss] by Automated count 26.0-34.0 [facility] MCHC Auto (RBC) [Mass/Vol]on 05-26-2024 MCHC (RBC) [Mass/Vol] MCHC [Mass/volume] by Automated count 30.5-36.0 [facility] MCV Auto (RBC) [Entitic vol] on 05-26-2024 MCV (RBC) [Entitic vol] MCV [Entitic vol ume] by Automated count 80.0-100.0 [facility] Monocytes Auto (Bld) [#/Vol] on 05-26-2024 Monocytes (Bld) [#/Vol] Automated blood monocyte count <0.87 [facility] Monocytes/100 WBC Auto (Bld) on 05-26-2024 Monocytes/100 WBC (Bld) Automated monocyte % [facility] Neutrophils Auto (Bld) [#/Vo l]on 05-26-2024 Neutrophils (Bld) [#/Vol] Neutrophils [#/volume] in Blood by Automated count 1.45-7.50 [facility] Neutrophils/100 WBC Auto (Bl d)on 05-26-2024 Neutrophils/100 WBC (Bld) Automated neutrophil % [facility] No Panel Informationon 05-26 Estimated GFR (CKD-EPI) 46 mL/min/1.73m??? Low >=60 [facility] Comment on above: Estimated Glomerular Filtration Rate [...] Reviewed: see resu lts of individual morphologies [facility] Nucleated RBC Auto (Bld) [#/ Vol]on 05-26-2024 Nucleated RBC (Bld) [#/Vol] Nucleated erythrocytes [#/volume] in Blood by Automated count <0.01 [facility] Nucleated erythrocytes [Pres ence] in Blood by Automated counton 05-26-2024 Nucleated RBC Auto Ql (Bld) Nucleated erythrocytes [Presence] in Blood by Automated count [facility] Ovalocyte detectionon 2023 Ovalocytes LM Ql (Bld) Ovalocyte detection [facility] Platelet adequacy [Presence] in Blood by Light microscopyon 05-26-2024 Platelets LM Ql (Bld) Platelet adequacy [Presence] in Blood by Light microscopy [facility] Platelet mean volume Auto (B ld) [Entitic vol]on 05-26-2024 Platelet mean volume (Bld) [Entitic vol] Platelet mean volume [Entitic volume] in Blood by Automated count 9.0-12.7 [facility] Platelets Auto (Bld) [#/Vol] on 05-26-2024 Platelets (Bld) [#/Vol] Platelets [#/vol ume] in Blood by Automated count 150-400 [facility] Polychromasia [Presence] in Blood by Light microscopyon 05-26-2024 Polychromasia LM Ql (Bld) Polychromasia [Presence] in Blood by Light microscopy [facility] Protein [Mass/volume] in Ser um or Plasmaon 05-26-2024 Protein [Mass/Vol] Protein [Mass/volume ] in Serum or Plasma 6.3-8.0 [facility] RBC Auto (Bld) [#/Vol]on RBC (Bld) [#/Vol] Erythrocytes [#/volume] in Blood by Automated count 3.90-5.20 [facility] Serum or plasma anion gap de terminationon 05-26-2024 Anion gap [Moles/Vol] Serum or plasma an ion gap determination 8-15 [facility] X-ray reportOrdered By: Teddy Arndt on 05-26-2024 Study report [facility] [place] [address] XRay Report Signed Patient: Kathy Washburn MR#: [id number] : 1940 Acct:[id number] Age/Sex: 83 / F ADM Date: 4 Loc: XD Room: Type: [facility] Attending Dr: Ayanna Vicente DO Copies to: Ayanna Vicente DO~ Ordering Provider: Ayanna Vicente DO Date of Service: 05/26/24 XR/XR hip LT min 2V(w/wo pelvis)*: M25.552 - Pain in left hip ([id number]) XR/XR knee LT 4V*: M25.552 - Pain [...] Stanford Arndt M.D.05/26/2024 4:55 PM Dictation Location: RADIO--01 Transcribed By: [facility] 05/26/241654 Dictated By: Stanford Arndt DO 05/26/241652 Signed By: 05/26/241654 [facility] XR knee LT 4V*on 05-26-2024 XR knee LT 4V* [facility] [place] [address] XRay Report Signed Patient: Kathy Washburn MR#: [id number] : 1940 Acct:[id number] Age/Sex: 83 / F ADM Date: 05/26/24 Loc: XD Room: Type: [facility] Attending Dr: Ayanna Vicente DO Copies to: Ayanna Vicente DO Ordering Provider: Ayanna Vicente DO Date of Service: 05/26/24 XR/XR hip LT min 2V(w/wo pelvis)*: M25.552 - Pain in left hip ([id number]) XR/XR knee LT 4V*: M25.552 - Pain [...] Stanford Arndt M.D.05/26/2024 4:55 PM Dictation [facility] Transcribed By: [facility] 05/26/241654 Dictated By: Stanford Arndt DO 05/26/241652 Signed By: 05/26/241654 Normal [facility] MM screening mammo BI w/CADo n 05-18-2024 MM screening mammo BI w/CAD [facility] [place] [address] Mammography Report Signed Patient: Kathy Washburn MR#: [id number] : 1940 Acct:[id number] Age/Sex: 83 / F ADM Date: 05/18/24 Loc: MD Room: Type: [facility] Attending Dr: Ayanna Vicente DO Copies [...] Stanford Arndt M.D.05/18/2024 3:23 PM Dictation Location: [facility] Transcribed By: [facility] 05/18/24 1523 Dictated By: Stanford Arndt DO 05/18/24 1459 Signed By: 05/18/24 1523 Normal [facility] CNOVon 05-17-2024 CNOV Office Visit (INEZ ) KATHY WASHBURN ([id number]) 1940 F Date Time Provider Department 05/17/24 1:00 PM ZOHAIB GERMAN During your visit today, we recorded the following information about you: Pulse Blood pressure Weight Height 62/minute 117/75 103.4 kg 1.727 m Zohaib German MD 05/17/2024 1:34 PM Signed [facility] Date of Service: 05/17/2024 Patient: Kathy Washburn Medical Record: [id number] Primary Care Physician: Ayanna Vicente DO Last Rheumatology visit: None at [facility] Referring Provider: No referring provider defined [...] Use Topics (more content not included)... Normal [facility] A1C with Estimated Average G sagrarion 05-06-2024 Glucose [Mass/Vol] 194 mg/dL Normal [facility] Comment on above: Result Comment: PERF ORMED BY: [facility] [address] [place] [address] PATHOLOGIST INSURANCE ACCOUNT REPRESENTATIVE MATHIEU RASCON M.D. Performed By: #### L IPID, A1C [facility] eA, T4F, URMACRERAT, TSH3, CUU, CMP, ADDONUAPLUS, T3T ####[facility] [id number] Alanine aminotransferase [En zymatic activity/volume] in Serum or PlasmaOrdered By: Ayanna Vicente on 05-06-2024 ALT [Catalytic activity/Vol] 25 U/L Normal [facility] Comment on above: Performed By: #### L IPID, A1C WT eA, T4F, URMACRERAT, TSH3, CUU, CMP, ADDONUAPLUS, T3T #### [facility] [address] ALT [Catalytic activity/Vol] Alanine aminotransferase [Enzymatic activity/volume] in Serum or Plasma [facility] Albumin [Mass/volume] in Ser um or Plasma by Bromocresol green (BCG) dye binding methoOrdered By: Ayanna Vicente on 05-06-2024 Albumin BCG dye [Mass/Vol] 4.1 g/dL 3.5-5.7 [facility] Albumin BCG dye [Mass/Vol] Albumin [Mass/volume] in Serum or Plasma by Bromocresol green (BCG) dye binding metho 3.5-5.7 [facility] Alkaline phosphatase [Enzyma tic activity/volume] in Serum or PlasmaOrdered By: Ayanna Vicente on 05-06-2024 ALP [Catalytic activity/Vol] 89 U/L Normal 34-104 [facility] Comment on above: Performed By: #### L IPID, A1C WTH eA, T4F, URMACRERAT, TSH3, CUU, CMP, ADDONUAPLUS, T3T #### [facility] [address] [place] [id number] [place] ALP [Catalytic activity/Vol] Alkaline phosphatase [Enzymatic activity/volume] in Serum or Plasma 34-104 [facility] Appearance of UrineOrdered B y: Ayanna Vicente on 05-06-2024 Appearance (U) Urine appearance Clear [facility] Aspartate aminotransferase [ Enzymatic activity/volume] in Serum or PlasmaOrdered By: Ayanna Vicente on 05-06-2024 AST [Catalytic activity/Vol] 23 U/L Normal 1339 [facility] Comment on above: Performed By: #### L IPID, A1C WT eA, T4F, URMACRERAT, TSH3, CUU, CMP, ADDONUAPLUS, T3T #### [facility] [address] [place] [address] [place] AST [Catalytic activity/Vol] Aspartate aminotransferase [Enzymatic activity/volume] in Serum or Plasma 1339 [facility] Bacteria [Presence] in Urine sediment by Light microscopyOrdered By: Ayanna Vicente on 05-06-2024 Bacteria LM Ql (Urine sed) 4+ [HPF] High None Seen [facility] Bacteria LM Ql (Urine sed) Bacteria [Presence] in Urine sediment by Light microscopy High None Seen [facility] Bilirubin Test strip Ql (U)O rdered By: Ayanna Vicente on 05-06-2024 Bilirubin Ql (U) Negative Negative [facility] Bilirubin Ql (U) Bilirubin.total [Presence] in Urine by Test strip Negative [facility] Bilirubin.total [Mass/volume ] in Serum or PlasmaOrdered By: Ayanna Vicente on 05-06-2024 Bilirubin [Mass/Vol] 0.4 mg/dL Normal 0.3-1.0 [facility] Comment on above: Performed By: #### L IPID, A1C WTH eA, T4F, URMACRERAT, TSH3, CUU, CMP, ADDONUAPLUS, T3T #### [facility] [address] [place] [id number] [place] Bilirubin [Mass/Vol] Bilirubin.total [Mass/volume] in Serum or Plasma 0.3-1.0 [facility] Blood estimated average gluc ose determination by estimation from glycated hemoglobinOrdered By: Ayanna Vicente on 05-06-2024 Average glucose Estimated from glycated hemoglobin (Bld) [Mass/Vol] Glucose mean value [Mass/volume] in Blood Estimated from glycated hemoglobin [facility] Calcium [Mass/volume] in Ser um or PlasmaOrdered By: Ayanna Vicente on 05-06-2024 Calcium [Mass/Vol] 9.6 mg/dL Normal 8.6-10.3 [facility] Comment on above: Performed By: #### L IPID, A1C WTH eA, T4F, URMACRERAT, TSH3, CUU, CMP, ADDONUAPLUS, T3T #### [facility] [address] Calcium [Mass/Vol] Calcium [Mass/volume ] in Serum or Plasma 8.6-10.3 [facility] Carbon dioxide, total [Moles /volume] in Serum or PlasmaOrdered By: Ayanna Vicente on 05-06-2024 CO2 [Moles/Vol] 30.2 mmol/L Normal 21.0-31.0 [facility] Comment on above: Performed By: #### L IPID, A1C WTH eA, T4F, URMACRERAT, TSH3, CUU, CMP, ADDONUAPLUS, T3T #### [facility] [address] [place] [address] [place] CO2 [Moles/Vol] Carbon dioxide, tota l [Moles/volume] in Serum or Plasma 21.0-31.0 [facility] Chloride [Moles/volume] in S ebony or PlasmaOrdered By: Ayanna Vicente on 05-06-2024 Chloride [Moles/Vol] 105 mmol/L Normal 98-107 [facility] Comment on above: Performed By: #### L IPID, A1C WTH eA, T4F, URMACRERAT, TSH3, CUU, CMP, ADDONUAPLUS, T3T #### [facility] [address] [place] [id number] [place] Chloride [Moles/Vol] Chloride [Moles/volume] in Serum or Plasma 98-107 [facility] Cholesterol [Mass/volume] in Serum or PlasmaOrdered By: Ayanna Vicente on 05-06-2024 Cholesterol [Mass/Vol] 134 mg/dL Low 140-200 [facility] Comment on above: Chol less than 200 m g/dl low riskChol 201-239 mg/dl borderline riskChol 240 mg/dl and greater high risk Result Comment: Chol less than 200 mg/dl low risk Chol 201-239 mg/dl borderline risk Chol 240 mg/dl and greater high risk Performed By: #### L IPID, A1C WTH eA, T4F, URMACRERAT, TSH3, CUU, CMP, ADDONUAPLUS, T3T #### [address] Cholesterol [Mass/Vol] Cholesterol [Mass/volume] in Serum or Plasma Low 140-200 [facility] Comment on above: Chol less than 200 m g/dl low riskChol 201-239 mg/dl borderline riskChol 240 mg/dl and greater high risk Cholesterol in HDL [Mass/vol ume] in Serum or PlasmaOrdered By: Ayanna Vicente on 05-06-2024 Cholesterol in HDL [Mass/Vol] Serum or plasma high density lipoprotein (HDL) cholesterol measurement 23- [facility] [place] Comment on above: HDL CHOL ATP-III CLA SSIFICATION Cardiovascular RiskHDL > or equal to 60 mg/dL LOWHDL < 40 mg/dL HIGH Cholesterol in LDL Calc [Mas s/Vol]Ordered By: Ayanna Vicente on 05-06-2024 Cholesterol in LDL [Mass/Vol] 46 mg/dL 0-100 [facility] [place] Comment on above: LDL ATP III CLASSIFI CATIONLDL less than 100 mg/dL OptimalLDL 100-129 mg/dL Near or above optimalLDL 130-159 mg/dL Borderline highLDL 160-189 mg/dL HighLDL greater than 189 mg/dL Very high Cholesterol in LDL [Mass/Vol] Cholesterol in LDL [Mass/volume] in Serum or Plasma by calculation 0-100 [facility] [place] Comment on above: LDL ATP III CLASSIFI CATIONLDL less than 100 mg/dL OptimalLDL 100-129 mg/dL Near or above optimalLDL 130-159 mg/dL Borderline highLDL 160-189 mg/dL HighLDL greater than 189 mg/dL Very high Cholesterol in VLDL Calc [Ma ss/Vol]Ordered By: Ayanna Vicente on 05-06-2024 Cholesterol in VLDL [Mass/Vol] 47 mg/dL [facility] [place] Cholesterol in VLDL [Mass/Vol] Cholesterol in VLDL [Mass/volume] in Serum or Plasma by calculation [facility] [place] Color Auto (U)Ordered By: Vasile Vicente on 05-06-2024 Color (U) Color of Urine by Auto Yellow [facility] [place] Color of Urine by AutoOrdere d By: Ayanna Vicente on 05-06-2024 Color (U) Yellow Normal Yellow [facility] [place] Comment on above: Order Comment: Name Collection Type:: Clean-Voided Midstream Performed By: #### L IPID, A1C WTH eA, T4F, URMACRERAT, TSH3, CUU, CMP, ADDONUAPLUS, T3T #### [facility] [address] Comprehensive Metabolic Pane curt 05-06-2024 Albumin [Mass/Vol] 4.1 g/dL Normal 3.5-5.7 [facility] Comment on above: Performed By: #### L IPID, A1C WTH eA, T4F, URMACRERAT, TSH3, CUU, CMP, ADDONUAPLUS, T3T #### [facility] [address] [place] [address] GFR/1.73 sq M.predicted MDRD (S/P/Bld) [Vol rate/Area] 51.605 mL/min/{1.73_m2} Normal [facility] Comment on above: Performed By: #### L IPID, A1C WTH eA, T4F, URMACRERAT, TSH3, CUU, CMP, ADDONUAPLUS, T3T #### [facility] [address] Creatinine [Mass/volume] in Serum or PlasmaOrdered By: Ayanna Vicente on 05-06-2024 Creatinine [Mass/Vol] 1.08 mg/dL Normal 0.60-1.20 [facility] Comment on above: Performed By: #### L IPID, A1C WTH eA, T4F, URMACRERAT, TSH3, CUU, CMP, ADDONUAPLUS, T3T #### [facility] [address] Creatinine [Mass/Vol] Creatinine [Mass/volume] in Serum or Plasma 0.60-1.20 [facility] [place] Creatinine [Mass/volume] in UrineOrdered By: Ayanna Vicente on 05-06-2024 Creatinine (U) [Mass/Vol] 93.00 mg/dL [facility] [place] Comment on above: No reference range e stablished Creatinine (U) [Mass/Vol] Creatinine [Mass/volume] in Urine [facility] [place] Comment on above: No reference range e stablished Dipstick and Microscopicon 1 Bacteria,Urine 4+ High None Seen [facility] Comment on above: Order Comment: Name Collection Type:: Clean-Voided Midstream Performed By: #### L IPID, A1C WTH eA, T4F, URMACRERAT, TSH3, CUU, CMP, ADDONUAPLUS, T3T #### [facility] [address] [place] [id number] [place] Bilirubin,Urine Negative Normal Negative [facility] Comment on above: Order Comment: Name Collection Type:: Clean-Voided Midstream Performed By: #### L IPID, A1C WTH eA, T4F, URMACRERAT, TSH3, CUU, CMP, ADDONUAPLUS, T3T #### [facility] [address] [place] [address] [place] Glucose Ql (U) Normal Normal Normal [facility] Comment on above: Order Comment: Name Collection Type:: Clean-Voided Midstream Performed By: #### L IPID, A1C WTH eA, T4F, URMACRERAT, TSH3, CUU, CMP, ADDONUAPLUS, T3T #### [facility] [address] [place] [id number] [place] Hyaline Casts,Urine 5-9 High 0-1 [facility] Comment on above: Order Comment: Name Collection Type:: Clean-Voided Midstream Result Comment: PERF ORMED BY: [place] [address] PATHOLOGIST INSURANCE ACCOUNT REPRESENTATIVE MATHIEU RASCON M.D. Performed By: #### L IPID, A1C WTH eA, T4F, URMACRERAT, TSH3, CUU, CMP, ADDONUAPLUS, T3T #### [place] [address] [place] Nitrite,Urine Negative Normal Negative [facility] Comment on above: Order Comment: Name Collection Type:: Clean-Voided Midstream Performed By: #### L IPID, A1C WTH eA, T4F, URMACRERAT, TSH3, CUU, CMP, ADDONUAPLUS, T3T #### [address] Occult Blood,Urine Negative Normal Negative [facility] Comment on above: Order Comment: Name Collection Type:: Clean-Voided Midstream Performed By: #### L IPID, A1C WTH eA, T4F, URMACRERAT, TSH3, CUU, CMP, ADDONUAPLUS, T3T #### [place] [address] [place] Protein,Urine Trace High Negative [facility] Comment on above: Order Comment: Name Collection Type:: Clean-Voided Midstream Performed By: #### L IPID, A1C WTH eA, T4F, URMACRERAT, TSH3, CUU, CMP, ADDONUAPLUS, T3T #### [place] [address] [place] RBC LM.HPF (Urine sed) [#/Area] 0 /[HPF] Normal 0-4 [facility] Comment on above: Order Comment: Name Collection Type:: Clean-Voided Midstream Performed By: #### L IPID, A1C WTH eA, T4F, URMACRERAT, TSH3, CUU, CMP, ADDONUAPLUS, T3T #### [address] Specificy [place],Urine 1.020 Normal 1.001-1.030 [facility] Comment on above: Order Comment: Name Collection Type:: Clean-Voided Midstream Performed By: #### L IPID, A1C WTH eA, T4F, URMACRERAT, TSH3, CUU, CMP, ADDONUAPLUS, T3T #### [facility] [address] Squamous Epithelial Cell,Urine 3-4 High 0-2 [facility] Comment on above: Order Comment: Name Collection Type:: Clean-Voided Midstream Performed By: #### L IPID, A1C WTH eA, T4F, URMACRERAT, TSH3, CUU, CMP, ADDONUAPLUS, T3T #### [address] Urobilinogen,Urine Normal Normal Normal [facility] Comment on above: Order Comment: Name Collection Type:: Clean-Voided Midstream Performed By: #### L IPID, A1C WTH eA, T4F, URMACRERAT, TSH3, CUU, CMP, ADDONUAPLUS, T3T #### [address] WBC,Urine 10-19 High 0-4 [facility] Comment on above: Order Comment: Name Collection Type:: Clean-Voided Midstream Performed By: #### L IPID, A1C WTH eA, T4F, URMACRERAT, TSH3, CUU, CMP, ADDONUAPLUS, T3T #### [address] Epithelial cells.squamous [# /area] in Urine sediment by Microscopy high power fieldOrdered By: Ayanna Vicente on 05-06-2024 Epithelial cells.squamous LM.HPF (Urine sed) [#/Area] 3-4 [HPF] High 0-2 [facility] [place] Epithelial cells.squamous LM.HPF (Urine sed) [#/Area] Epithelial cells.squamous [#/area] in Urine sediment by Microscopy high power field High 0-2 [facility] [place] Erythrocytes [#/area] in Uri ne sediment by Microscopy high power fieldOrdered By: Ayanna Vicente on 05-06-2024 RBC LM.HPF (Urine sed) [#/Area] 0-1 [HPF] 0-4 [facility] [place] RBC LM.HPF (Urine sed) [#/Area] Erythrocytes [#/area] in Urine sediment by Microscopy high power field 0-4 [facility] [place] Globulin Calc (S) [Mass/Vol] Ordered By: Ayanna Vicente on 05-06-2024 Globulin (S) [Mass/Vol] Serum globulin measurement by calculation (mass/volume) [facility] [place] Glucose [Mass/volume] in Ser um or PlasmaOrdered By: Ayanna Vicente on 05-06-2024 Glucose [Mass/Vol] 129 mg/dL High 70-100 [facility] Comment on above: ADA recommended refe rence rangeRandom Glucose Reference Range is dependent on time and content of last meal. Glucose of more than 200 mg/dL in a nonstressed, ambulatory subject supports the diagnosis of Diabetes Mellitus. Result Comment: [place] om Glucose Reference Range is dependent on time and content of last meal. Glucose of more than 200 mg/dL in a nonstressed, ambulatory subject supports the diagnosis of Diabetes Mellitus. ADA recommended reference range Performed By: #### L IPID, A1C WTH eA, T4F, URMACRERAT, TSH3, CUU, CMP, ADDONUAPLUS, T3T #### [address] Glucose [Mass/Vol] Glucose [Mass/volume ] in Serum or Plasma High 70-100 [facility] [place] Comment on above: ADA recommended refe rence rangeRandom Glucose Reference Range is dependent on time and content of last meal. Glucose of more than 200 mg/dL in a nonstressed, ambulatory subject supports the diagnosis of Diabetes Mellitus. Glucose [Mass/volume] in Uri ne by Test stripOrdered By: Ayanna Vicente on 05-06-2024 Glucose Test strip (U) [Mass/Vol] Normal mg/dL Normal [facility] [place] Glucose Test strip (U) [Mass/Vol] Glucose [Mass/volume] in Urine by Test strip Normal [facility] [place] Glucose mean value [Mass/vol ume] in Blood Estimated from glycated hemoglobinOrdered By: Ayanna Vicente on 05-06-2024 Average glucose Estimated from glycated hemoglobin (Bld) [Mass/Vol] 194 mg/dL [facility] [place] Hemoglobin A1c percentageOrd ered By: Ayanna Vicente on 05-06-2024 HbA1c (Bld) [Mass fraction] 8.4 % High 4.3-5.6 [facility] [place] Comment on above: Increased risk for d iabetes: 5.7 - 6.4diabetes: >6.4glycemic control for adults with diabetes: <7.0 Result Comment: Incr eased risk for diabetes: 5.7 - 6.4 diabetes: >6.4 glycemic control for adults with diabetes: <7.0 Performed By: #### L IPID, A1C WTH eA, T4F, URMACRERAT, TSH3, CUU, CMP, ADDONUAPLUS, T3T ####[facility] [id number] [place] [address] [facility] Hemoglobin A1c/Hemoglobin.to dayna in BloodOrdered By: Ayanna Vicente on 05-06-2024 HbA1c (Bld) [Mass fraction] Hemoglobin A1c percentage High 4.3-5.6 [facility] [place] Comment on above: Increased risk for d iabetes: 5.7 - 6.4diabetes: >6.4glycemic control for adults with diabetes: <7.0 Hemoglobin Test strip Ql (U) Ordered By: Ayanna Vicente on 05-06-2024 Hemoglobin Ql (U) Negative Negative [facility] Hemoglobin Ql (U) Hemoglobin [Presence ] in Urine by Test strip Negative [facility] [place] Hyaline casts LM.LPF (Urine sed) [#/Area]Ordered By: Ayanna Vicente on 05-06-2024 Hyaline casts (Urine sed) [#/Area] 5-9 [LPF] High 0-1 [facility] [place] Hyaline casts (Urine sed) [#/Area] Hyaline casts [#/area] in Urine sediment by Microscopy low power field High 0-1 [facility] [place] Ketones Test strip Ql (U)Ord ered By: Ayanna Vicente on 05-06-2024 Ketones Ql (U) Ketones [Presence] i n Urine by Test strip Negative [facility] [place] Ketones [Presence] in Urine by Test stripOrdered By: Ayanna Vicente on 05-06-2024 Ketones Ql (U) Negative Normal Negative [facility] [place] Comment on above: Order Comment: Name Collection Type:: Clean-Voided Midstream Performed By: #### L IPID, A1C WTH eA, T4F, URMACRERAT, TSH3, CUU, CMP, ADDONUAPLUS, T3T #### [facility] [address] Laboratory - Microbiology an d Antimicrobial susceptibilityOrdered By: Ayanna Vicente on 05-06-2024 Bacteria identified Cx Nom (U) Klebsiella variicola Abnormal [facility] [place] Bacteria identified Cx Nom (U) Klebsiella variicola Abnormal [facility] [place] Leukocyte esterase [Presence ] in Urine by Test stripOrdered By: Ayanna Vicente on 05-06-2024 Leukocyte esterase Test strip Ql (U) 2+ High Negative [facility] [place] Comment on above: Order Comment: Name Collection Type:: Clean-Voided Midstream Performed By: #### L IPID, A1C WTH eA, T4F, URMACRERAT, TSH3, CUU, CMP, ADDONUAPLUS, T3T #### [facility] [address] Leukocyte esterase Test strip Ql (U) Leukocyte esterase [Presence] in Urine by Test strip High Negative [facility] [place] Leukocytes [#/area] in Urine sediment by Microscopy high power fieldOrdered By: Ayanna Vicente on 05-06-2024 WBC LM.HPF (Urine sed) [#/Area] 10-19 [HPF] High 0-4 [facility] [place] WBC LM.HPF (Urine sed) [#/Area] Leukocytes [#/area] in Urine sediment by Microscopy high power field High 0-4 [facility] [place] Lipid Panelon 05-06-2024 LDL Cholesterol,Calculated 46 mg/dL Normal 0-100 [facility] Comment on above: Result Comment: LDL ATP III CLASSIFICATION LDL less than 100 mg/dL Optimal LDL 100-129 mg/dL Near or above optimal LDL 130-159 mg/dL Borderline high LDL 160-189 mg/dL High LDL greater than 189 mg/dL Very high Performed By: #### L IPID, A1C WTH eA, T4F, URMACRERAT, TSH3, CUU, CMP, ADDONUAPLUS, T3T #### [address] Triglyceride w/Reflex 235 mg/dL High 0-149 [facility] Comment on above: Result Comment: TRIG ATP III CLASSIFICATION TRIG less than 150 mg/dL Normal TRIG 150-199 mg/dL Borderline high TRIG 200-500 mg/dL High TRIG greater than 500 mg/dL Very high Standard traceable to the Center for Disease Conrtrol and Prevention (CDC) test method. Performed By: #### L IPID, A1C WTH eA, T4F, URMACRERAT, TSH3, CUU, CMP, ADDONUAPLUS, T3T #### [address] VLDL CHOLESTEROL 47 mg/dL Normal [facility] Comment on above: Performed By: #### L IPID, A1C WTH eA, T4F, URMACRERAT, TSH3, CUU, CMP, ADDONUAPLUS, T3T #### [address] MicroAlb Creat Ratio,[place] Creatinine, Urine (Random) 93.00 mg/dL Normal [facility] Comment on above: Result Comment: No r eference range established Performed By: #### L IPID, A1C WTH eA, T4F, URMACRERAT, TSH3, CUU, CMP, ADDONUAPLUS, T3T #### [address] Microalbumin/Creatinine Ratio 17.2 mg/g Normal 0.0-30.0 [facility] Comment on above: Result Comment: 30-3 00 mg/g indicates an increased risk for diabetic nephropathy. Greater than 300 mg/g is consistent with clinical nephropathy. (Am. J. Kidney Disease 1995, 25:107) PERFORMED BY: [place] [address] PATHOLOGIST INSURANCE ACCOUNT REPRESENTATIVE MATHIEU RASCON M.D. Performed By: #### L IPID, A1C WTH eA, T4F, URMACRERAT, TSH3, CUU, CMP, ADDONUAPLUS, T3T #### [facility] [address] Microalbumin [Mass/volume] i n UrineOrdered By: Ayanna Vicente on 05-06-2024 Albumin DL <= 20 mg/L (U) [Mass/Vol] 1.6 mg/dL Normal 0.0-1.8 [facility] [place] Comment on above: Performed By: #### L IPID, A1C WT eA, T4F, URMACRERAT, TSH3, CUU, CMP, ADDONUAPLUS, T3T #### [facility] [address] [place] [id number] [facility] Albumin DL <= 20 mg/L (U) [Mass/Vol] Microalbumin [Mass/volume] in Urine 0.0-1.8 [facility] [place] Nitrite Test strip Ql (U)Ord ered By: Ayanna Vicente on 05-06-2024 Nitrite Ql (U) Negative Negative [facility] [place] Nitrite Ql (U) Nitrite [Presence] i n Urine by Test strip Negative [facility] [place] No Panel InformationOrdered By: Ayanna Vicente on 05-06-2024 Estimated GFR (CKD-EPI) 51.605 mL/Min [facility] [place] Pharmacy Creatinine Clearance (Chem N/A [facility] [place] Potassium [Moles/volume] in Serum or PlasmaOrdered By: Ayanna Vicente on 05-06-2024 Potassium [Moles/Vol] 5.1 mmol/L Normal 3.5-5.1 [facility] Comment on above: Performed By: #### L IPID, A1C [facility] eA, T4F, URMACRERAT, TSH3, CUU, CMP, ADDONUAPLUS, T3T #### [facility] [address] Potassium [Moles/Vol] Potassium [Moles/volume] in Serum or Plasma 3.5-5.1 [facility] [place] Protein Test strip (U) [Mass /Vol]Ordered By: Ayanna Vicente on 05-06-2024 Protein (U) [Mass/Vol] Trace mg/dL High Negative F [facility] Protein (U) [Mass/Vol] Protein [Mass/vol ume] in Urine by Test strip High Negative [facility] [place] Protein [Mass/volume] in Ser um or PlasmaOrdered By: Ayanna Vicente on 05-06-2024 Protein [Mass/Vol] 6.8 g/dL Normal 6.4-8.9 [facility] Comment on above: Performed By: #### L IPID, A1C WTH eA, T4F, URMACRERAT, TSH3, CUU, CMP, ADDONUAPLUS, T3T #### [facility] [address] Protein [Mass/Vol] Protein [Mass/volume ] in Serum or Plasma 6.4-8.9 [facility] [place] Serum globulin measurement b y calculation (mass/volume)Ordered By: Ayanna Vicente on 05-06-2024 Globulin (S) [Mass/Vol] 2.7 g/dL Normal [facility] Comment on above: Performed By: #### L IPID, A1C WTH eA, T4F, URMACRERAT, TSH3, CUU, CMP, ADDONUAPLUS, T3T #### [facility] [address] [place] [address] Serum or plasma albumin/glob ulin mass ratioOrdered By: Ayanna Vicente on 05-06-2024 Albumin/Globulin [Mass ratio] 1.5 {ratio} Normal [facility] [place] Comment on above: Performed By: #### L IPID, A1C WTH eA, T4F, URMACRERAT, TSH3, CUU, CMP, ADDONUAPLUS, T3T #### [facility] [address] [place] [address] Albumin/Globulin [Mass ratio] Serum or plasma albumin/globulin mass ratio [facility] [place] Serum or plasma anion gap de terminationOrdered By: Ayanna Vicente on 05-06-2024 Anion gap [Moles/Vol] 10.9 mmol/L Normal 6.0-15.0 [facility] Comment on above: Performed By: #### L IPID, A1C WTH eA, T4F, URMACRERAT, TSH3, CUU, CMP, ADDONUAPLUS, T3T #### [facility] [address] [place] [address] Anion gap [Moles/Vol] Serum or plasma an ion gap determination 6.0-15.0 [facility] [place] Serum or plasma high density lipoprotein (HDL) cholesterol measurementOrdered By: Ayanna Vicente on 05-06-2024 Cholesterol in HDL [Mass/Vol] 41 mg/dL Normal 23-92 [facility] [place] Comment on above: HDL CHOL ATP-III CLA SSIFICATION Cardiovascular RiskHDL > or equal to 60 mg/dL LOWHDL < 40 mg/dL HIGH Result Comment: HDL CHOL ATP-III CLASSIFICATION Cardiovascular Risk HDL > or equal to 60 mg/dL LOW HDL < 40 mg/dL HIGH Performed By: #### L IPID, A1C WTH eA, T4F, URMACRERAT, TSH3, CUU, CMP, ADDONUAPLUS, T3T #### [facility] [address] Serum or plasma total choles terol/high density lipoprotein (HDL) cholesterol mass ratOrdered By: Ayanna Vicente on 05-06-2024 Cholesterol.total/Choles terol in HDL [Mass ratio] 3.3 {ratio} Normal <5.0 [facility] [place] Comment on above: Performed By: #### L IPID, A1C WTH eA, T4F, URMACRERAT, TSH3, CUU, CMP, ADDONUAPLUS, T3T #### [facility] [address] [place] [phone] [facility] Cholesterol.total/Choles terol in HDL [Mass ratio] Serum or plasma total cholesterol/high density lipoprotein (HDL) cholesterol mass rat <5.0 [facility] [place] Sodium [Moles/volume] in Ser um or PlasmaOrdered By: Ayanna Vicente on 05-06-2024 Sodium [Moles/Vol] 141 mmol/L Normal 136-145 [facility] Comment on above: Performed By: #### L IPID, A1C WTH eA, T4F, URMACRERAT, TSH3, CUU, CMP, ADDONUAPLUS, T3T #### [facility] [address] [place] [id number] [facility] Sodium [Moles/Vol] Sodium [Moles/volume ] in Serum or Plasma 136-145 [facility] [place] Specific gravity Test strip (U) [Rel density]Ordered By: Ayanna Vicente on 05-06-2024 Specific gravity (U) [Rel density] 1.020 1.001-1.030 [facility] [place] Specific gravity (U) [Rel density] Specific gravity of Urine by Test strip 1.001-1.030 [facility] [place] Thyrotropin [Units/volume] i n Serum or PlasmaOrdered By: Ayanna Vicente on 05-06-2024 TSH Qn 1.93 m[IU]/L Normal 0.45-5.33 [facility] [place] Comment on above: Result Comment: PERF ORMED BY: [facility] [address] [place] [address] PATHOLOGIST INSURANCE ACCOUNT REPRESENTATIVE MATHIEU RASCON M.D. Performed By: #### L IPID, A1C WT eA, T4F, URMACRERAT, TSH3, CUU, CMP, ADDONUAPLUS, T3T ####[place] [address] [place] [id number] [facility] TSH Qn Thyrotropin [Units/volume] in Serum or Plasma 0.45-5.33 [facility] [place] Thyroxine (T4) free [Mass/vo lume] in Serum or PlasmaOrdered By: Ayanna Vicente on 05-06-2024 Free T4 [Mass/Vol] 0.94 ng/dL Normal 0.61-1.12 [facility] Comment on above: Performed By: #### L IPID, A1C WTH eA, T4F, URMACRERAT, TSH3, CUU, CMP, ADDONUAPLUS, T3T ####[place] [address] [place] [id number] [facility] Free T4 [Mass/Vol] Thyroxine (T4) free [Mass/volume] in Serum or Plasma 0.61-1.12 [facility] [place] Triglyceride [Mass/volume] i n Serum or PlasmaOrdered By: Ayanna Vicente on 05-06-2024 Triglyceride [Mass/Vol] 235 mg/dL High 0-149 [facility] Comment on above: TRIG ATP III CLASSIF ICATIONTRIG less than 150 mg/dL NormalTRIG 150-199 mg/dL Borderline highTRIG 200-500 mg/dL High TRIG greater than 500 mg/dL Very highStandard traceable to the Center for Disease Conrtrol and Prevention (CDC) test method. Triglyceride [Mass/Vol] Triglyceride [Mass/volume] in Serum or Plasma High 0-149 [facility] [place] Comment on above: TRIG ATP III CLASSIF ICATIONTRIG less than 150 mg/dL NormalTRIG 150-199 mg/dL Borderline highTRIG 200-500 mg/dL High TRIG greater than 500 mg/dL Very highStandard traceable to the Center for Disease Conrtrol and Prevention (CDC) test method. Triiodothyronine (T3) Totalo n 05-06-2024 Triiodothyronine (T3) Total 0.89 ng/mL Normal 0.87-1.78 [facility] Comment on above: Performed By: #### L IPID, A1C WT eA, T4F, URMACRERAT, TSH3, CUU, CMP, ADDONUAPLUS, T3T ####[facility] [id number] Triiodothyronine (T3) [Mass/ volume] in Serum or PlasmaOrdered By: Ayanna Vicente on 05-06-2024 T3 [Mass/Vol] 0.89 ng/mL 0.87-1.78 [facility] [place] T3 [Mass/Vol] Triiodothyronine (T3 ) [Mass/volume] in Serum or Plasma 0.87-1.78 [facility] [place] Urea nitrogen [Mass/volume] in Serum or PlasmaOrdered By: Ayanna Vicente on 05-06-2024 Urea nitrogen [Mass/Vol] 29 mg/dL High 02-04 [facility] [place] Comment on above: Performed By: #### L IPID, A1C WTH eA, T4F, URMACRERAT, TSH3, CUU, CMP, ADDONUAPLUS, T3T #### [facility] [address] Urea nitrogen [Mass/Vol] Urea nitrogen [Mass/volume] in Serum or Plasma High 02-04 [facility] Urine Cultureon 05-06-2024 Bacteria identified Cx Nom (U) ORGANISM: Klebsiella variicola (O:KLEVAR) [place] Count >100,000 Aerobic CORNELIA Charge ([id number]) ---- [...] RESISTANT TO ALL B-LACTAM DRUGS. PERFORMED BY: [facility] [address] [place] [address] PATHOLOGIST INSURANCE ACCOUNT REPRESENTATIVE MATHIEU RASCON M.D. Normal [facility] Comment on above: Performed By: #### L IPID, A1C [facility] eA, T4F, URMACRERAT, TSH3, CUU, CMP, ADDONUAPLUS, T3T ####[facility] [id number] Urine appearanceOrdered By: Ayanna Vicente on 05-06-2024 Appearance (U) Clear Normal Clear [facility] Comment on above: Order Comment: Name Collection Type:: Clean-Voided Midstream Performed By: #### L IPID, A1C WT eA, T4F, URMACRERAT, TSH3, CUU, CMP, ADDONUAPLUS, T3T #### [facility] [address] [id number] [facility] Urine cultureOrdered By: Aftab Vicente on 05-06-2024 Bacteria identified Cx Nom (U) Abnormal [facility] Urine microalbumin/creatinin e mass ratioOrdered By: Ayanna Vicente on 05-06-2024 Albumin/Creatinine DL <= 20 mg/L (U) [Mass ratio] 17.2 mg/g 0.0-30.0 [facility] Comment on above: 30-300 mg/g indicate s an increased risk for diabetic nephropathy. Greater than 300 mg/g is consistent with clinical nephropathy. (Am. J. Kidney Disease 1995, 25:107) Albumin/Creatinine DL <= 20 mg/L (U) [Mass ratio] Urine microalbumin/creatini ne mass ratio 0.0-30.0 [facility] Comment on above: 30-300 mg/g indicate s an increased risk for diabetic nephropathy. Greater than 300 mg/g is consistent with clinical nephropathy. (Am. J. Kidney Disease 1995, 25:107) Urobilinogen Test strip (U) [Mass/Vol]Ordered By: Ayanna Vicente on 05-06-2024 Urobilinogen (U) [Mass/Vol] Normal mg/dL Normal [facility] Urobilinogen (U) [Mass/Vol] Urobilinogen [Mass/volume] in Urine by Test strip Normal [facility] pH Test strip (U)Ordered By: Ayanna Vicente on 05-06-2024 pH (U) pH of Urine by Test strip 5.0-9.0 [facility] pH of Urine by Test stripOrd ered By: Ayanna Vicente on 05-06-2024 pH (U) 5.5 [pH] Normal 5.0-9.0 [facility] Comment on above: Order Comment: Name Collection Type:: Clean-Voided Midstream Performed By: #### L IPID, A1C WTH eA, T4F, URMACRERAT, TSH3, CUU, CMP, ADDONUAPLUS, T3T #### [facility] [address] [id number] [facility] Ambulatory Visit Summaryon 0 02-24-2024 Ambulatory Visit [...] with SUSAN RANDOLPH PA-C, [place] ROSA When: Comments: 6 mos (no labs) Where: [address] [place] [address] [id number] Medications What How Much When Why Instructions [...] social activities (more content not included)... Normal [facility] Urology Office/Clinic Noteon 02-24-2024 Urology Office/Clinic [...] (N32.81: Overactive bladder) S/p Botox 100u 08/30/21. -Childs sxs only improved for a few weeks [...] Contact Information JAX BECKMAN, SUSAN Miller, URL [address] [place] [address] [phone] Additional Instructions: 6 mos (no labs) Patient Education Overactive Bladder, Adult Documentation recorded by the scribangela Ospina accurately reflects the services(s) I performed [...] mg Tab, (more content not included)... Normal [facility] Comment on above: Result Comment: Elec tronically Signed By: SUSAN RANDOLPH PA-C\.br\Date and Time Signed: 02/24/24 10:53 EDT\.br\Electronically Co-Signed By: Sarah Ospina\.br\Date and Time Co-Signed: 02/24/24 10:44 EDT\.br\Electronically Co-Signed By: Sarah Ospina.br\Date and Time Co-Signed: 02/24/24 10:47 EDT Laboratory - Chemistry and C hemistry - challengeon 02-04-2024 Bilirubin Ql (U) Negative NEGATIVE [facility] Glucose (U) [Mass/Vol] Negative NEGATIVE [facility] Ketones Ql (U) Negative NEGATIVE [facility] pH (U) 6.0 [pH] 5.0-9.0 [facility] Specific gravity (U) [Rel density] >=1.030 Abnormal 1.005-1.025 [facility] Urobilinogen Qn (U) 0.2 {Jose'U}/dL 0.2-1.0 [facility] Laboratory - Specimen inform ationon 02-04-2024 Appearance (U) CLEAR CLEAR [facility] Color (U) YELLOW YELLOW [facility] Laboratory - Urinalysison Leukocyte esterase Test strip Ql (U) TRACE Abnormal NEGATIVE [facility] Mucus Ql (Urine sed) TRACE Abnormal NONE SEEN [facility] Nitrite Ql (U) Negative NEGATIVE [facility] Protein Ql (U) TRACE mg/dL NEG/TRACE [facility] No Panel Informationon 02-03 Miscellaneous Test Comment See comment [facility] Comment on above: Specimen Source: UCC - Urine,Clean Catch - Urine CC - 200.100 Urine Bacteria TRACE #/HPF Abnormal NONE SEEN [facility] Urine Occult Blood Negative NEGATIVE [facility] Urine Other Casts NONE SEEN #/LPF NONE SEEN [facility] Urine Other Crystals None Seen #/HPF None Seen [facility] Urine RBC 0-2 #/HPF 0-2 [facility] Urine Squamous Epithelial Cells RARE #/LPF NONE/RARE [facility] Urine WBC 2-5 #/HPF Abnormal NONE SEEN [facility] Urine culture routineon 01-12 Bacteria identified Cx Nom (U) [facility] Alanine aminotransferase [En zymatic activity/volume] in Serum or PlasmaOrdered By: Ayanna Vicente on 10-17-2023 ALT [Catalytic activity/Vol] 28 U/L 7-52 [facility] Albumin [Mass/volume] in Ser um or Plasma by Bromocresol green (BCG) dye binding methoOrdered By: Ayanna Vicente on 10-17-2023 Albumin BCG dye [Mass/Vol] 4.1 g/dL 3.5-5.7 [facility] Alkaline phosphatase [Enzyma tic activity/volume] in Serum or PlasmaOrdered By: Ayanna Vicente on 10-17-2023 ALP [Catalytic activity/Vol] 93 U/L 34-104 [facility] Anisocytosis LM Ql (Bld)Orde red By: Ayanna Vicente on 10-17-2023 Anisocytosis Ql (Bld) Slight Fir [facility] Aspartate aminotransferase [ Enzymatic activity/volume] in Serum or PlasmaOrdered By: Ayanna Vicente on 10-17-2023 AST [Catalytic activity/Vol] 30 U/L 13-39 [facility] Automated erythrocytes count in urine sediment (number/area)Ordered By: Ayanna Vicente on 10-17-2023 RBC Auto (Urine sed) [#/Area] 1-2 [HPF] 0-4 [facility] Automated leukocytes count i n urine sediment (number/area)Ordered By: Ayanna Vicente on 10-17-2023 WBC Auto (Urine sed) [#/Area] 10-19 [HPF] High 0-4 [facility] Basophils Auto (Bld) [#/Vol] Ordered By: Ayanna Vicente on 10-17-2023 Basophils (Bld) [#/Vol] N/A F [facility] Basophils/100 WBC Auto (Bld) Ordered By: Ayanna Vicente on 10-17-2023 Basophils/100 WBC (Bld) N/A F [facility] Bilirubin Test strip Ql (U)O rdered By: Ayanna Vicente on 10-17-2023 Bilirubin Ql (U) Negative Negative [facility] Bilirubin.total [Mass/volume ] in Serum or PlasmaOrdered By: Ayanna Vicente on 10-17-2023 Bilirubin [Mass/Vol] 0.4 mg/dL 0.3-1.0 [facility] Calcium [Mass/volume] in Ser um or PlasmaOrdered By: Ayanna Vicente on 10-17-2023 Calcium [Mass/Vol] 9.7 mg/dL 8.6-10.3 [facility] Carbon dioxide, total [Moles /volume] in Serum or PlasmaOrdered By: Ayanna Vicente on 10-17-2023 CO2 [Moles/Vol] 30.9 mmol/L 21.0-31.0 [facility] Chloride [Moles/volume] in S ebony or PlasmaOrdered By: Ayanna Vicente on 10-17-2023 Chloride [Moles/Vol] 105 mmol/L 98-107 [facility] Cholesterol [Mass/volume] in Serum or PlasmaOrdered By: Ayanna Vicente on 10-17-2023 Cholesterol [Mass/Vol] 131 mg/dL Low 140-200 [facility] Comment on above: Chol less than 200 m g/dl low riskChol 201-239 mg/dl borderline riskChol 240 mg/dl and greater high risk Cholesterol in LDL Calc [Mas s/Vol]Ordered By: Ayanna Vicente on 10-17-2023 Cholesterol in LDL [Mass/Vol] 30 mg/dL 0-100 [facility] Comment on above: LDL ATP III CLASSIFI CATIONLDL less than 100 mg/dL OptimalLDL 100-129 mg/dL Near or above optimalLDL 130-159 mg/dL Borderline highLDL 160-189 mg/dL HighLDL greater than 189 mg/dL Very high Cholesterol in VLDL Calc [Ma ss/Vol]Ordered By: Ayanna Vicente on 10-17-2023 Cholesterol in VLDL [Mass/Vol] 60 mg/dL [facility] Color Auto (U)Ordered By: Vasile Vicente on 10-17-2023 Color (U) Yellow Yellow [facility] Creatinine [Mass/volume] in Serum or PlasmaOrdered By: Ayanna Vicente on 10-17-2023 Creatinine [Mass/Vol] 1.15 mg/dL 0.60-1.20 [facility] Eosinophils Auto (Bld) [#/Vo l]Ordered By: Ayanna Vicente on 10-17-2023 Eosinophils (Bld) [#/Vol] N/A [facility] Eosinophils/100 WBC Auto (Bl d)Ordered By: Ayanna Vicente on 10-17-2023 Eosinophils/100 WBC (Bld) N/A [facility] Eosinophils/100 WBC Manual c nt (Bld)Ordered By: Ayanna Vicente on 10-17-2023 Eosinophils/100 WBC (Bld) 2 % 1-3 [facility] Erythrocyte distribution wid th Auto (RBC) [Ratio]Ordered By: Ayanna Vicente on 10-17-2023 Erythrocyte distribution width (RBC) [Ratio] 15.2 % 11.9-15.3 [facility] Globulin Calc (S) [Mass/Vol] Ordered By: Ayanna Vicente on 10-17-2023 Globulin (S) [Mass/Vol] 2.6 g/dL F [facility] Glucose [Mass/volume] in Ser um or PlasmaOrdered By: Ayanna Vicente on 10-17-2023 Glucose [Mass/Vol] 162 mg/dL High 70-100 [facility] Comment on above: ADA recommended [...] from glycated hemoglobin (Bld) [Mass/Vol] 197 mg/dL [facility] Hematocrit Auto (Bld) [Volum e fraction]Ordered By: Ayanna Vicente on 10-17-2023 Hematocrit (Bld) [Volume fraction] 38.8 % 34.0-46.4 [facility] Hemoglobin A1c percentageOrd ered By: Ayanna Vicente on 10-17-2023 HbA1c (Bld) [Mass fraction] 8.5 % High 4.3-5.6 [facility] Comment on above: Increased risk for d iabetes: 5.7 - 6.4diabetes: >6.4glycemic control for adults with diabetes: <7.0 Hemoglobin [Mass/volume] in BloodOrdered By: Ayanna Vicente on 10-17-2023 Hemoglobin (Bld) [Mass/Vol] 12.2 g/dL 11.8-15.4 [facility] Ketones Auto test strip (U) [Mass/Vol]Ordered By: Ayanna Vicente on 10-17-2023 Ketones (U) [Mass/Vol] Negative Negative [facility] Laboratory - UrinalysisOrder ed By: Ayanna Vicente on 10-17-2023 Hyaline casts LM Ql (Urine sed) None seen [LPF] 0-8 [facility] Leukocytes [#/volume] correc andreina for nucleated erythrocytes in Blood by Automated counOrdered By: Ayanna Vicente on 10-17-2023 WBC corrected for nucl RBC Auto (Bld) [#/Vol] 15.9 10*3/uL High 3.8-11.6 [facility] Lymphocytes Auto (Bld) [#/Vo l]Ordered By: Ayanna Vicente on 10-17-2023 Lymphocytes (Bld) [#/Vol] N/A [facility] Lymphocytes/100 WBC Auto (Bl d)Ordered By: Ayanna Vicente on 10-17-2023 Lymphocytes/100 WBC (Bld) N/A [facility] Lymphocytes/100 WBC Manual c nt (Bld)Ordered By: Ayanna Vicente on 10-17-2023 Lymphocytes/100 WBC (Bld) 51 % High 18-42 [facility] MCH Auto (RBC) [Entitic mass ]Ordered By: Ayanna Vicente on 10-17-2023 MCH (RBC) [Entitic mass] 28.0 pg 24.7-34.3 [facility] MCHC Auto (RBC) [Mass/Vol]Or dered By: Ayanna Vicente on 10-17-2023 MCHC (RBC) [Mass/Vol] 31.5 g/dL Low 32.0-35.0 [facility] MCV Auto (RBC) [Entitic vol] Ordered By: Ayanna Vicente on 10-17-2023 MCV (RBC) [Entitic vol] 89.0 fL 80-100 F [facility] Microalbumin [Mass/volume] i n UrineOrdered By: Ayanna Vicente on 10-17-2023 Albumin DL <= 20 mg/L (U) [Mass/Vol] 1.9 mg/dL High 0.0-1.8 [facility] Microcytes LM Ql (Bld)Ordere d By: Ayanna Vicente on 10-17-2023 Microcytes Ql (Bld) Slight [facility] Monocytes Auto (Bld) [#/Vol] Ordered By: Ayanna Vicente on 10-17-2023 Monocytes (Bld) [#/Vol] N/A F [facility] Monocytes/100 WBC Auto (Bld) Ordered By: Ayanna Vicente on 10-17-2023 Monocytes/100 WBC (Bld) N/A F [facility] Monocytes/100 WBC Manual cnt (Bld)Ordered By: Ayanna Vicente on 10-17-2023 Monocytes/100 WBC (Bld) 8 % 2-11 F [facility] Myelocytes/100 WBC Manual cn t (Bld)Ordered By: Ayanna Vicente on 10-17-2023 Myelocytes/100 WBC (Bld) 1 % High 0-0 [facility] Neutrophils Auto (Bld) [#/Vo l]Ordered By: Ayanna Vicente on 10-17-2023 Neutrophils (Bld) [#/Vol] N/A [facility] Neutrophils/100 WBC Auto (Bl d)Ordered By: Ayanna Vicente on 10-17-2023 Neutrophils/100 WBC (Bld) N/A [facility] Nitrite Test strip Ql (U)Ord ered By: Ayanna Vicente on 10-17-2023 Nitrite Ql (U) Positive High Negative [facility] No Panel InformationOrdered By: Ayanna Vicente on 10-17-2023 Estimated GFR (CKD-EPI) 47.859 mL/Min [facility] Pharmacy Creatinine Clearance (Chem N/A [facility] Nucleated erythrocytes [Pres ence] in Blood by Automated countOrdered By: Ayanna Vicente on 10-17-2023 Nucleated RBC Auto Ql (Bld) N/A [facility] Platelet adequacy [Presence] in Blood by Light microscopyOrdered By: Ayanna Vicente on 10-17-2023 Platelets LM Ql (Bld) Normal Normal Fir [facility] Platelet mean volume Auto (B ld) [Entitic vol]Ordered By: Ayanna Vicente on 10-17-2023 Platelet mean volume (Bld) [Entitic vol] 9.2 fL 6.3-10.7 [facility] Platelet morphology finding [Identifier] in BloodOrdered By: Ayanna Vicetne on 10-17-2023 Platelet morphology finding Nom (Bld) Normal Normal [facility] Platelets Auto (Bld) [#/Vol] Ordered By: Ayanna Vicente on 10-17-2023 Platelets (Bld) [#/Vol] 231 10*3/uL 150-450 [facility] Poikilocytosis [Presence] in Blood by Light microscopyOrdered By: Ayanna Vicente on 10-17-2023 Poikilocytosis LM Ql (Bld) Slight [facility] Potassium [Moles/volume] in Serum or PlasmaOrdered By: Ayanna Vicente on 10-17-2023 Potassium [Moles/Vol] 5.1 mmol/L 3.5-5.1 [facility] Protein Auto test strip (U) [Mass/Vol]Ordered By: Ayanna Vicente on 10-17-2023 Protein (U) [Mass/Vol] Trace mg/dL High Negative F [facility] Protein [Mass/volume] in Ser um or PlasmaOrdered By: Ayanna Vicente on 10-17-2023 Protein [Mass/Vol] 6.7 g/dL 6.4-8.9 [facility] RBC Auto (Bld) [#/Vol]Ordere d By: Ayanna Vicente on 10-17-2023 RBC (Bld) [#/Vol] 4.36 10*6/uL 3.60-5.00 [facility] RBC morphologyOrdered By: Vasile Vicente on 10-17-2023 RBC morphology finding Nom (Bld) N/A [facility] Segmented neutrophils/100 WB C Manual cnt (Bld)Ordered By: Ayanna Vicente on 10-17-2023 Segmented neutrophils/100 WBC (Bld) 33 % Low 50-70 [facility] Serum or plasma albumin/glob ulin mass ratioOrdered By: Ayanna Vicente on 10-17-2023 Albumin/Globulin [Mass ratio] 1.6 {ratio} [facility] Serum or plasma anion gap de terminationOrdered By: Ayanna Vicente on 10-17-2023 Anion gap [Moles/Vol] 8.2 mmol/L 6.0-15.0 [facility] Serum or plasma high density lipoprotein (HDL) cholesterol measurementOrdered By: Ayanna Vicente on 10-17-2023 Cholesterol in HDL [Mass/Vol] 40 mg/dL 23-92 [facility] Comment on above: HDL CHOL ATP-III CLA SSIFICATION Cardiovascular RiskHDL > or equal to 60 mg/dL LOWHDL < 40 mg/dL HIGH Serum or plasma total choles terol/high density lipoprotein (HDL) cholesterol mass ratOrdered By: Ayanna Vicente on 10-17-2023 Cholesterol.total/Choles terol in HDL [Mass ratio] 3.3 {ratio} <5.0 [facility] Sodium [Moles/volume] in Ser um or PlasmaOrdered By: Ayanna Vicente on 10-17-2023 Sodium [Moles/Vol] 139 mmol/L 136-145 [facility] Specific gravity Auto test s trip (U) [Rel density]Ordered By: Ayanna Vicente on 10-17-2023 Specific gravity (U) [Rel density] 1.018 1.001-1.030 [facility] Squamous epithelial cells de tection in urine sediment by light microscopyOrdered By: Ayanna Vicente on 10-17-2023 Epithelial cells.squamous LM Ql (Urine sed) 0-1 [HPF] 0-2 [facility] Thyrotropin [Units/volume] i n Serum or PlasmaOrdered By: Ayanna Vicente on 10-17-2023 TSH Qn 1.46 m[IU]/L 0.45-5.33 [facility] Thyroxine (T4) free [Mass/vo lume] in Serum or PlasmaOrdered By: Ayanna Vicente on 10-17-2023 Free T4 [Mass/Vol] 1.02 ng/dL 0.61-1.12 [facility] Triglyceride [Mass/volume] i n Serum or PlasmaOrdered By: Ayanna Vicente on 10-17-2023 Triglyceride [Mass/Vol] 303 mg/dL High 0-149 F [facility] Comment on above: TRIG ATP III CLASSIF ICATIONTRIG less than 150 mg/dL NormalTRIG 150-199 mg/dL Borderline highTRIG 200-500 mg/dL High TRIG greater than 500 mg/dL Very highStandard traceable to the Center for Disease Conrtrol and Prevention (CDC) test method. Triiodothyronine (T3) Free [ Mass/volume] in Serum or PlasmaOrdered By: Ayanna Vicente on 10-17-2023 Free T3 [Mass/Vol] 3.22 pg/mL 2.50-3.90 [facility] Urea nitrogen [Mass/volume] in Serum or PlasmaOrdered By: Ayanna Vicente on 10-17-2023 Urea nitrogen [Mass/Vol] 30 mg/dL High 7-25 [facility] Urine bacteria detection by automated methodOrdered By: Ayanna Vicente on 10-17-2023 Bacteria Auto Ql (U) 4+ High None Seen [facility] Urine clarity by refractomet ry automatedOrdered By: Ayanan Vicente on 10-17-2023 Clarity Refractometry automated (U) Clear Clear [facility] Urine culture routineOrdered By: Ayanna Vicente on 10-17-2023 Bacteria identified Cx Nom (U) Escherichia coli (MDRO) Abnormal [facility] Urine glucose measurement by automated test strip (mass/volume)Ordered By: Ayanna Vicente on 10-17-2023 Glucose Auto test strip (U) [Mass/Vol] Normal mg/dL Normal [facility] Urine hemoglobin detection b y automated test stripOrdered By: Ayanna Vicente on 10-17-2023 Hemoglobin Auto test strip Ql (U) Negative Negative [facility] Urine leukocyte esterase det ection by automated test stripOrdered By: Ayanna Vicente on 10-17-2023 Leukocyte esterase Auto test strip Ql (U) 2+ High Negative [facility] Urobilinogen Auto test strip (U) [Mass/Vol]Ordered By: Ayanna Vicente on 10-17-2023 Urobilinogen (U) [Mass/Vol] Normal mg/dL Normal [facility] Variant lymphocytes/100 WBC Manual cnt (Bld)Ordered By: Ayanna Vicente on 10-17-2023 Variant lymphocytes/100 WBC (Bld) 6 % 0-12 [facility] WBC Auto (Bld) [#/Vol]Ordere d By: Ayanna Vicente on 10-17-2023 WBC (Bld) [#/Vol] 15.9 10*3/uL High 3.8-11.6 [facility] pH Auto test strip (U)Ordere d By: Ayanna Vicente on 10-17-2023 pH (U) 5.5 [pH] 5.0-9.0 [facility] Alanine aminotransferase [En zymatic activity/volume] in Serum or PlasmaOrdered By: Ayanna Vicente on 04-09-2023 ALT [Catalytic activity/Vol] 25 U/L 7-52 [facility] Albumin [Mass/volume] in Ser um or Plasma by Bromocresol green (BCG) dye binding methoOrdered By: Ayanna Vicente on 04-09-2023 Albumin BCG dye [Mass/Vol] 4.2 g/dL 3.5-5.7 [facility] Alkaline phosphatase [Enzyma tic activity/volume] in Serum or PlasmaOrdered By: Ayanna Vicente on 04-09-2023 ALP [Catalytic activity/Vol] 95 U/L 34-104 [facility] Anisocytosis LM Ql (Bld)Orde red By: Ayanna Vicente on 04-09-2023 Anisocytosis Ql (Bld) Slight Fir [facility] Aspartate aminotransferase [ Enzymatic activity/volume] in Serum or PlasmaOrdered By: Ayanna Vicente on 04-09-2023 AST [Catalytic activity/Vol] 21 U/L 13-39 [facility] Basophils Auto (Bld) [#/Vol] Ordered By: Ayanna Vicente on 04-09-2023 Basophils (Bld) [#/Vol] N/A F [facility] Basophils/100 WBC Auto (Bld) Ordered By: Ayanna Vicente on 04-09-2023 Basophils/100 WBC (Bld) N/A F [facility] Bilirubin.total [Mass/volume ] in Serum or PlasmaOrdered By: Ayanna Vicente on 04-09-2023 Bilirubin [Mass/Vol] 0.4 mg/dL 0.3-1.0 [facility] Calcium [Mass/volume] in Ser um or PlasmaOrdered By: Ayanna Vicente on 04-09-2023 Calcium [Mass/Vol] 9.9 mg/dL 8.6-10.3 [facility] Carbon dioxide, total [Moles /volume] in Serum or PlasmaOrdered By: Ayanna Vicente on 04-09-2023 CO2 [Moles/Vol] 31.5 mmol/L 21.0-31.0 [facility] Chloride [Moles/volume] in S ebony or PlasmaOrdered By: Ayanna Vicente on 04-09-2023 Chloride [Moles/Vol] 103 mmol/L 98-107 [facility] Cholesterol [Mass/volume] in Serum or PlasmaOrdered By: Ayanna Vicente on 04-09-2023 Cholesterol [Mass/Vol] 139 mg/dL 140-200 [facility] Comment on above: Chol less than 200 m g/dl low riskChol 201-239 mg/dl borderline riskChol 240 mg/dl and greater high risk Cholesterol in LDL Calc [Mas s/Vol]Ordered By: Ayanna Vicente on 04-09-2023 Cholesterol in LDL [Mass/Vol] 27 mg/dL 0-100 [facility] Comment on above: LDL ATP III CLASSIFI CATIONLDL less than 100 mg/dL OptimalLDL 100-129 mg/dL Near or above optimalLDL 130-159 mg/dL Borderline highLDL 160-189 mg/dL HighLDL greater than 189 mg/dL Very high Cholesterol in VLDL Calc [Ma ss/Vol]Ordered By: Ayanna Vicente on 04-09-2023 Cholesterol in VLDL [Mass/Vol] 69 mg/dL [facility] Creatinine [Mass/volume] in Serum or PlasmaOrdered By: Ayanna Vicente on 04-09-2023 Creatinine [Mass/Vol] 1.06 mg/dL 0.60-1.20 [facility] Eosinophils Auto (Bld) [#/Vo l]Ordered By: Ayanna Vicente on 04-09-2023 Eosinophils (Bld) [#/Vol] N/A [facility] Eosinophils/100 WBC Auto (Bl d)Ordered By: Ayanna Vicente on 04-09-2023 Eosinophils/100 WBC (Bld) N/A [facility] Eosinophils/100 WBC Manual c nt (Bld)Ordered By: Ayanna Vicente on 04-09-2023 Eosinophils/100 WBC (Bld) 5 % 1-3 [facility] Erythrocyte distribution wid th Auto (RBC) [Ratio]Ordered By: Ayanna Vicente on 04-09-2023 Erythrocyte distribution width (RBC) [Ratio] 15.1 % 11.9-15.3 [facility] Globulin Calc (S) [Mass/Vol] Ordered By: Ayanna Vicente on 04-09-2023 Globulin (S) [Mass/Vol] 2.4 g/dL [facility] Glucose [Mass/volume] in Ser um or PlasmaOrdered By: Ayanna Vicente on 04-09-2023 Glucose [Mass/Vol] 154 mg/dL 70-100 [facility] Comment on above: ADA recommended refe rence [...] hemoglobin (Bld) [Mass/Vol] 200 mg/dL [facility] Hematocrit Auto (Bld) [Volum e fraction]Ordered By: Ayanna Vicente on 04-09-2023 Hematocrit (Bld) [Volume fraction] 37.2 % 34.0-46.4 [facility] Hemoglobin A1c percentageOrd ered By: Ayanna Vicente on 04-09-2023 HbA1c (Bld) [Mass fraction] 8.6 % 4.3-5.6 [facility] Comment on above: Increased risk for d iabetes: 5.7 - 6.4diabetes: >6.4glycemic control for adults with diabetes: <7.0 Hemoglobin [Mass/volume] in BloodOrdered By: Ayanna Vicente on 04-09-2023 Hemoglobin (Bld) [Mass/Vol] 12.2 g/dL 11.8-15.4 [facility] Leukocytes [#/volume] correc andreina for nucleated erythrocytes in Blood by Automated counOrdered By: Ayanna Vicente on 04-09-2023 WBC corrected for nucl RBC Auto (Bld) [#/Vol] 15.3 10*3/uL 3.8-11.6 [facility] Lymphocytes Auto (Bld) [#/Vo l]Ordered By: Ayanna Vicente on 04-09-2023 Lymphocytes (Bld) [#/Vol] N/A [facility] Lymphocytes/100 WBC Auto (Bl d)Ordered By: Ayanna Vicente on 04-09-2023 Lymphocytes/100 WBC (Bld) N/A [facility] Lymphocytes/100 WBC Manual c nt (Bld)Ordered By: Ayanna Vicente on 04-09-2023 Lymphocytes/100 WBC (Bld) 59 % 18-42 [facility] MCH Auto (RBC) [Entitic mass ]Ordered By: Ayanna Vicente on 04-09-2023 MCH (RBC) [Entitic mass] 29.1 pg 24.7-34.3 [facility] MCHC Auto (RBC) [Mass/Vol]Or dered By: Ayanna Vicente on 04-09-2023 MCHC (RBC) [Mass/Vol] 32.9 g/dL 32.0-35.0 [facility] MCV Auto (RBC) [Entitic vol] Ordered By: Ayanna Vicente on 04-09-2023 MCV (RBC) [Entitic vol] 88.5 fL 80-100 [facility] Monocytes Auto (Bld) [#/Vol] Ordered By: Ayanna Vicente on 04-09-2023 Monocytes (Bld) [#/Vol] N/A [facility] Monocytes/100 WBC Auto (Bld) Ordered By: Ayanna Vicente on 04-09-2023 Monocytes/100 WBC (Bld) N/A [facility] Monocytes/100 WBC Manual cnt (Bld)Ordered By: Ayanna Vicente on 04-09-2023 Monocytes/100 WBC (Bld) 7 % 2-11 [facility] Myelocytes/100 WBC Manual cn t (Bld)Ordered By: Ayanna Vicente on 04-09-2023 Myelocytes/100 WBC (Bld) 1 % 0-0 [facility] Neutrophils Auto (Bld) [#/Vo l]Ordered By: Ayanna Vicente on 04-09-2023 Neutrophils (Bld) [#/Vol] N/A [facility] Neutrophils/100 WBC Auto (Bl d)Ordered By: Ayanna Vicente on 04-09-2023 Neutrophils/100 WBC (Bld) N/A [facility] No Panel InformationOrdered By: Ayanna Vicente on 04-09-2023 Estimated GFR (CKD-EPI) 53.106 mL/Min [facility] Pharmacy Creatinine Clearance (Chem N/A [facility] Nucleated erythrocytes [Pres ence] in Blood by Automated countOrdered By: Ayanna Vicente on 04-09-2023 Nucleated RBC Auto Ql (Bld) N/A [facility] Ovalocyte detectionOrdered B y: Ayanna Vicente on 04-09-2023 Ovalocytes LM Ql (Bld) Slight [facility] Platelet adequacy [Presence] in Blood by Light microscopyOrdered By: Ayanna Vicente on 04-09-2023 Platelets LM Ql (Bld) Normal Normal [facility] Platelet mean volume Auto (B ld) [Entitic vol]Ordered By: Ayanna Vicente on 04-09-2023 Platelet mean volume (Bld) [Entitic vol] 9.5 fL 6.3-10.7 [facility] Platelet morphology finding [Identifier] in BloodOrdered By: Ayanna Vicente on 04-09-2023 Platelet morphology finding Nom (Bld) Normal Normal [facility] Platelets Auto (Bld) [#/Vol] Ordered By: Ayanna Vicente on 04-09-2023 Platelets (Bld) [#/Vol] 211 10*3/uL 150-450 [facility] Potassium [Moles/volume] in Serum or PlasmaOrdered By: Ayanna Vicente on 04-09-2023 Potassium [Moles/Vol] 5.0 mmol/L 3.5-5.1 [facility] Protein [Mass/volume] in Ser um or PlasmaOrdered By: Ayanna Vicente on 04-09-2023 Protein [Mass/Vol] 6.6 g/dL 6.4-8.9 [facility] RBC Auto (Bld) [#/Vol]Ordere d By: Ayanna Vicente on 04-09-2023 RBC (Bld) [#/Vol] 4.20 10*6/uL 3.60-5.00 [facility] RBC morphologyOrdered By: Vasile Vicente on 04-09-2023 RBC morphology finding Nom (Bld) N/A [facility] Segmented neutrophils/100 WB C Manual cnt (Bld)Ordered By: Ayanna Vicente on 04-09-2023 Segmented neutrophils/100 WBC (Bld) 27 % 50-70 [facility] Serum or plasma albumin/glob ulin mass ratioOrdered By: Ayanna Vicente on 04-09-2023 Albumin/Globulin [Mass ratio] 1.8 {ratio} [facility] Serum or plasma anion gap de terminationOrdered By: Ayanna Vicente on 04-09-2023 Anion gap [Moles/Vol] 10.5 mmol/L 6.0-15.0 [facility] Serum or plasma high density lipoprotein (HDL) cholesterol measurementOrdered By: Ayanna Vicente on 04-09-2023 Cholesterol in HDL [Mass/Vol] 42 mg/dL 23-92 [facility] Comment on above: HDL CHOL ATP-III CLA SSIFICATION Cardiovascular RiskHDL > or equal to 60 mg/dL LOWHDL < 40 mg/dL HIGH Serum or plasma total choles terol/high density lipoprotein (HDL) cholesterol mass ratOrdered By: Ayanna Vicente on 04-09-2023 Cholesterol.total/Choles terol in HDL [Mass ratio] 3.3 {ratio} <5.0 [facility] Sodium [Moles/volume] in Ser um or PlasmaOrdered By: Ayanna Vicente on 04-09-2023 Sodium [Moles/Vol] 140 mmol/L 136-145 [facility] Thyrotropin [Units/volume] i n Serum or PlasmaOrdered By: Ayanna Vicente on 04-09-2023 TSH Qn 1.62 m[IU]/L 0.45-5.33 [facility] Thyroxine (T4) free [Mass/vo lume] in Serum or PlasmaOrdered By: Ayanna Vicente on 04-09-2023 Free T4 [Mass/Vol] 0.78 ng/dL 0.61-1.12 [facility] Triglyceride [Mass/volume] i n Serum or PlasmaOrdered By: Ayanna Vicente on 04-09-2023 Triglyceride [Mass/Vol] 349 mg/dL 0-149 [facility] Comment on above: TRIG ATP III CLASSIF ICATIONTRIG less than 150 mg/dL NormalTRIG 150-199 mg/dL Borderline highTRIG 200-500 mg/dL High TRIG greater than 500 mg/dL Very highStandard traceable to the Center for Disease Conrtrol and Prevention (CDC) test method. Triiodothyronine (T3) Free [ Mass/volume] in Serum or PlasmaOrdered By: Ayanna Vicente on 04-09-2023 Free T3 [Mass/Vol] 2.71 pg/mL 2.50-3.90 [facility] Urea nitrogen [Mass/volume] in Serum or PlasmaOrdered By: Ayanna Vicente on 04-09-2023 Urea nitrogen [Mass/Vol] 28 mg/dL 7- [facility] Variant lymphocytes/100 WBC Manual cnt (Bld)Ordered By: Ayanna Vicente on 04-09-2023 Variant lymphocytes/100 WBC (Bld) 1 % 0-12 [facility] WBC Auto (Bld) [#/Vol]Ordere d By: Ayanna Vicente on 04-09-2023 WBC (Bld) [#/Vol] 15.3 10*3/uL 3.8-11.6 [facility] Alanine aminotransferase [En zymatic activity/volume] in Serum or PlasmaOrdered By: Ayanna Vicente on 09-30-2022 ALT [Catalytic activity/Vol] 25 U/L 7-52 [facility] Albumin [Mass/volume] in Ser um or Plasma by Bromocresol green (BCG) dye binding methoOrdered By: Ayanna Vicente on 09-30-2022 Albumin BCG dye [Mass/Vol] 4.3 g/dL 3.5-5.7 [facility] Alkaline phosphatase [Enzyma tic activity/volume] in Serum or PlasmaOrdered By: Ayanna Vicente on 09-30-2022 ALP [Catalytic activity/Vol] 97 U/L 34-104 [facility] Anisocytosis LM Ql (Bld)Orde red By: Ayanna Vicente on 09-30-2022 Anisocytosis Ql (Bld) Slight [facility] Aspartate aminotransferase [ Enzymatic activity/volume] in Serum or PlasmaOrdered By: Ayanna Vicente on 09-30-2022 AST [Catalytic activity/Vol] 22 U/L 13-39 [facility] Basophils Auto (Bld) [#/Vol] Ordered By: Ayanna Vicente on 09-30-2022 Basophils (Bld) [#/Vol] 0.0 10*3/uL 0.0-0.2 [facility] Basophils/100 WBC Auto (Bld) Ordered By: Ayanna Vicente on 09-30-2022 Basophils/100 WBC (Bld) 0.3 % . [facility] Bilirubin.total [Mass/volume ] in Serum or PlasmaOrdered By: Ayanna Vicente on 09-30-2022 Bilirubin [Mass/Vol] 0.3 mg/dL 0.3-1.0 [facility] Calcium [Mass/volume] in Ser um or PlasmaOrdered By: Ayanna Vicente on 09-30-2022 Calcium [Mass/Vol] 9.3 mg/dL 8.6-10.3 [facility] Carbon dioxide, total [Moles /volume] in Serum or PlasmaOrdered By: Ayanna Vicente on 09-30-2022 CO2 [Moles/Vol] 30.4 mmol/L 21.0-31.0 [facility] Chloride [Moles/volume] in S ebony or PlasmaOrdered By: Ayanna Vicente on 09-30-2022 Chloride [Moles/Vol] 104 mmol/L 98-107 [facility] Cholesterol [Mass/volume] in Serum or PlasmaOrdered By: Ayanna Vicente on 09-30-2022 Cholesterol [Mass/Vol] 117 mg/dL 140-200 [facility] Comment on above: Chol less than 200 m g/dl low riskChol 201-239 mg/dl borderline riskChol 240 mg/dl and greater high risk Cholesterol in LDL Calc [Mas s/Vol]Ordered By: Ayanna Vicente on 09-30-2022 Cholesterol in LDL [Mass/Vol] 35 mg/dL 0-100 [facility] Comment on above: LDL ATP III CLASSIFI CATIONLDL less than 100 mg/dL OptimalLDL 100-129 mg/dL Near or above optimalLDL 130-159 mg/dL Borderline highLDL 160-189 mg/dL HighLDL greater than 189 mg/dL Very high Cholesterol in VLDL Calc [Ma ss/Vol]Ordered By: Ayanna Vicente on 09-30-2022 Cholesterol in VLDL [Mass/Vol] 43 mg/dL [facility] Creatinine [Mass/volume] in Serum or PlasmaOrdered By: Ayanna Vicente on 09-30-2022 Creatinine [Mass/Vol] 1.25 mg/dL 0.60-1.20 [facility] Eosinophils Auto (Bld) [#/Vo l]Ordered By: Ayanna Vicente on 09-30-2022 Eosinophils (Bld) [#/Vol] 0.3 10*3/uL 0.0-0.45 [facility] Eosinophils/100 WBC Auto (Bl d)Ordered By: Ayanna Vicente on 09-30-2022 Eosinophils/100 WBC (Bld) 2.3 % . [facility] Erythrocyte distribution wid th Auto (RBC) [Ratio]Ordered By: Ayanna Vicente on 09-30-2022 Erythrocyte distribution width (RBC) [Ratio] 15.4 % 11.9-15.3 [facility] Globulin Calc (S) [Mass/Vol] Ordered By: Ayanna Vicente on 09-30-2022 Globulin (S) [Mass/Vol] 2.4 g/dL [facility] Glucose [Mass/volume] in Ser um or PlasmaOrdered By: Ayanna Vicente on 09-30-2022 Glucose [Mass/Vol] 135 mg/dL 74-109 [facility] Comment on above: ADA recommended refe rence [...] hemoglobin (Bld) [Mass/Vol] 203 mg/dL [facility] Hematocrit Auto (Bld) [Volum e fraction]Ordered By: Ayanna Vicente on 09-30-2022 Hematocrit (Bld) [Volume fraction] 37.0 % 34.0-46.4 [facility] Hemoglobin A1c percentageOrd ered By: Ayanna Vicente on 09-30-2022 HbA1c (Bld) [Mass fraction] 8.7 % 4.3-5.6 [facility] Comment on above: Increased risk for d iabetes: 5.7 - 6.4diabetes: >6.4glycemic control for adults with diabetes: <7.0 Hemoglobin [Mass/volume] in BloodOrdered By: Ayanna Vicente on 09-30-2022 Hemoglobin (Bld) [Mass/Vol] 12.1 g/dL 11.8-15.4 [facility] Laboratory - Chemistry and C hemistry - challengeOrdered By: Ayanna Vicente on 09-30-2022 GFR/1.73 sq M.predicted MDRD (S/P/Bld) [Vol rate/Area] 43.572 mL/min/{1.73_m2} [facility] Leukocytes [#/volume] correc andreina for nucleated erythrocytes in Blood by Automated counOrdered By: Ayanna Vicente on 09-30-2022 WBC corrected for nucl RBC Auto (Bld) [#/Vol] 15.2 10*3/uL 3.8-11.6 [facility] Lymphocytes Auto (Bld) [#/Vo l]Ordered By: Ayanna Vicente on 09-30-2022 Lymphocytes (Bld) [#/Vol] 10.5 10*3/uL 1.00-4.8 [facility] Lymphocytes/100 WBC Auto (Bl d)Ordered By: Ayanna Vicente on 09-30-2022 Lymphocytes/100 WBC (Bld) 69.4 % . [facility] MCH Auto (RBC) [Entitic mass ]Ordered By: Ayanna Vicente on 09-30-2022 MCH (RBC) [Entitic mass] 28.4 pg 24.7-34.3 [facility] MCHC Auto (RBC) [Mass/Vol]Or dered By: Ayanna Vicente on 09-30-2022 MCHC (RBC) [Mass/Vol] 32.7 g/dL 32.0-35.0 [facility] MCV Auto (RBC) [Entitic vol] Ordered By: Ayanna Vicente on 09-30-2022 MCV (RBC) [Entitic vol] 86.9 fL 80-100 [facility] Microalbumin [Mass/volume] i n UrineOrdered By: Ayanna Vicente on 09-30-2022 Albumin DL <= 20 mg/L (U) [Mass/Vol] 1.9 mg/dL 0.0-1.8 [facility] Monocytes Auto (Bld) [#/Vol] Ordered By: Ayanna Vicente on 09-30-2022 Monocytes (Bld) [#/Vol] 0.7 10*3/uL 0.0-0.8 [facility] Monocytes/100 WBC Auto (Bld) Ordered By: Ayanna Vicente on 09-30-2022 Monocytes/100 WBC (Bld) 4.5 % . [facility] Neutrophils Auto (Bld) [#/Vo l]Ordered By: Ayanna Vicente on 09-30-2022 Neutrophils (Bld) [#/Vol] 3.6 10*3/uL 1.8-7.7 [facility] Neutrophils/100 WBC Auto (Bl d)Ordered By: Ayanna Vicente on 09-30-2022 Neutrophils/100 WBC (Bld) 23.5 % . [facility] No Panel InformationOrdered By: Ayanna Vicente on 09-30-2022 Pharmacy Creatinine Clearance (Chem N/A [facility] Nucleated erythrocytes [Pres ence] in Blood by Automated countOrdered By: Ayanna Vicente on 09-30-2022 Nucleated RBC Auto Ql (Bld) 0.6 /100{WBC} 0-0.5 [facility] Ovalocyte detectionOrdered B y: Ayanna Vicente on 09-30-2022 Ovalocytes LM Ql (Bld) Slight Fi [facility] Platelet adequacy [Presence] in Blood by Light microscopyOrdered By: Ayanna Vicente on 09-30-2022 Platelets LM Ql (Bld) Normal Normal [facility] Platelet mean volume Auto (B ld) [Entitic vol]Ordered By: Ayanna Vicente on 09-30-2022 Platelet mean volume (Bld) [Entitic vol] 8.9 fL 6.3-10.7 [facility] Platelet morphology finding [Identifier] in BloodOrdered By: Ayanna Vicente on 09-30-2022 Platelet morphology finding Nom (Bld) Normal Normal [facility] Platelets Auto (Bld) [#/Vol] Ordered By: Ayanna Vicente on 09-30-2022 Platelets (Bld) [#/Vol] 230 10*3/uL 150-450 [facility] Poikilocytosis [Presence] in Blood by Light microscopyOrdered By: Ayanna Vicente on 09-30-2022 Poikilocytosis LM Ql (Bld) Slight [facility] Potassium [Moles/volume] in Serum or PlasmaOrdered By: Ayanna Vicente on 09-30-2022 Potassium [Moles/Vol] 4.5 mmol/L 3.5-5.1 [facility] Protein [Mass/volume] in Ser um or PlasmaOrdered By: Ayanna Vicente on 09-30-2022 Protein [Mass/Vol] 6.7 g/dL 6.4-8.9 [facility] RBC Auto (Bld) [#/Vol]Ordere d By: Ayanna Vicente on 09-30-2022 RBC (Bld) [#/Vol] 4.26 10*6/uL 3.60-5.00 [facility] RBC morphologyOrdered By: Vasile angelaaurora Vicente on 09-30-2022 RBC morphology finding Nom (Bld) N/A [facility] Serum or plasma albumin/glob ulin mass ratioOrdered By: Ayanna Vicente on 09-30-2022 Albumin/Globulin [Mass ratio] 1.8 {ratio} [facility] Serum or plasma anion gap de terminationOrdered By: Ayanna Vicente on 09-30-2022 Anion gap [Moles/Vol] 12.1 mmol/L 6.0-15.0 [facility] Serum or plasma high density lipoprotein (HDL) cholesterol measurementOrdered By: Ayanna Vicente on 09-30-2022 Cholesterol in HDL [Mass/Vol] 39 mg/dL 35-85 [facility] Comment on above: HDL CHOL ATP-III CLA SSIFICATION Cardiovascular RiskHDL > or equal to 60 mg/dL LOWHDL < 40 mg/dL HIGH Serum or plasma total choles terol/high density lipoprotein (HDL) cholesterol mass ratOrdered By: Ayanna Vicente on 09-30-2022 Cholesterol.total/Choles terol in HDL [Mass ratio] 3.0 {ratio} <5.0 [facility] Sodium [Moles/volume] in Ser um or PlasmaOrdered By: Ayanna Vicente on 09-30-2022 Sodium [Moles/Vol] 142 mmol/L 136-145 [facility] Thyrotropin [Units/volume] i n Serum or PlasmaOrdered By: Ayanna Vicente on 09-30-2022 TSH Qn 2.04 m[IU]/L 0.45-5.33 [facility] Thyroxine (T4) free [Mass/vo lume] in Serum or PlasmaOrdered By: Ayanna Vicente on 09-30-2022 Free T4 [Mass/Vol] 0.86 ng/dL 0.61-1.12 [facility] Triglyceride [Mass/volume] i n Serum or PlasmaOrdered By: Ayanna Vicente on 09-30-2022 Triglyceride [Mass/Vol] 216 mg/dL 0-149 [facility] Comment on above: TRIG ATP III CLASSIF ICATIONTRIG less than 150 mg/dL NormalTRIG 150-199 mg/dL Borderline highTRIG 200-500 mg/dL High TRIG greater than 500 mg/dL Very highStandard traceable to the Center for Disease Conrtrol and Prevention (CDC) test method. Triiodothyronine (T3) Free [ Mass/volume] in Serum or PlasmaOrdered By: Ayanna Vicente on 09-30-2022 Free T3 [Mass/Vol] 3.13 pg/mL 2.50-3.90 [facility] Urea nitrogen [Mass/volume] in Serum or PlasmaOrdered By: Ayanna Vicente on 09-30-2022 Urea nitrogen [Mass/Vol] 33 mg/dL 7-25 [facility] WBC Auto (Bld) [#/Vol]Ordere d By: Ayanna Vicente on 09-30-2022 WBC (Bld) [#/Vol] 15.2 10*3/uL 3.8-11.6 [facility] No Panel InformationOrdered By: Ayanna Vicente on 04-23-2022 25-Hydroxy Vitamin D Total 49.9 ng/mL 30-100 [facility] Comment on above: VITAMIN D STATUS 25( [place])VITAMIN D RANGE (ng/mL) Deficient <20 Insufficient 20 to <30Sufficient 30 to 100Reference: Nile MF,Joon NC, Chon ROD, et al. Evaluation,treatment, and prevention of vitamin D deficiency; an Endocrine Society clinical practice guideline. JCEM. 2010; 96(7):1911-30. LD LACTATE DEHYDROon 022 LDH [Catalytic activity/Vol] 202 U/L 135 - 214 U/L [facility] Albumin [Mass/volume] in Ser um or PlasmaOrdered By: Ayanna Vicente on 04-01-2022 Albumin [Mass/Vol] 3.5 g/dL 3.2-5.5 [facility] Basophils Auto (Bld) [#/Vol] Ordered By: Ayanna Vicente on 04-01-2022 Basophils (Bld) [#/Vol] N/A F [facility] Basophils/100 WBC Auto (Bld) Ordered By: Ayanna Vicente on 04-01-2022 Basophils/100 WBC (Bld) N/A F [facility] Blood anisocytosis detection Ordered By: Ayanna Vicente on 04-01-2022 Anisocytosis Ql (Bld) Slight [facility] Blood hemoglobin measurement (mass/volume)Ordered By: Ayanna Vicente on 04-01-2022 Hemoglobin (Bld) [Mass/Vol] 12.3 g/dL 11.8-15.4 [facility] Blood leukocytes automated c ount (number/volume)Ordered By: Ayanna Vicente on 04-01-2022 WBC (Bld) [#/Vol] 12.0 10*3/uL 4.5-11.0 [facility] Cerebrospinal fluid unidenti fied cells/100 leukocytesOrdered By: Ayanna Vicente on 04-01-2022 Unidentified cells/100 WBC (CSF) 2 % 0-0 [facility] Comment on above: PRO LYMPHOCYTE Cholesterol [Mass/volume] in Serum or PlasmaOrdered By: Ayanna Vicente on 04-01-2022 Cholesterol [Mass/Vol] 102 mg/dL 140-200 [facility] Comment on above: Chol less than 200 m g/dl low risk Chol 201-239 mg/dl borderline risk Chol 240 mg/dl and greater high risk Chol less than 200 m g/dl low riskChol 201-239 mg/dl borderline riskChol 240 mg/dl and greater high risk Cholesterol in LDL Calc [Mas s/Vol]Ordered By: Ayanna Vicente on 04-01-2022 Cholesterol in LDL [Mass/Vol] 27 mg/dL 0-100 [facility] Comment on above: LDL ATP III CLASSIFI [...] in VLDL [Mass/Vol] 25 mg/dL [facility] Creatinine and Glomerular fi ltration rate.predicted panel (S/P/Bld)Ordered By: Ayanna Vicente on 04-01-2022 Creatinine [Mass/Vol] 0.84 mg/dL 0.44-1.03 [facility] Eosinophils Auto (Bld) [#/Vo l]Ordered By: Ayanna Vicente on 04-01-2022 Eosinophils (Bld) [#/Vol] N/A [facility] Eosinophils/100 WBC Auto (Bl d)Ordered By: Ayanna Vicente on 04-01-2022 Eosinophils/100 WBC (Bld) N/A [facility] Erythrocyte distribution wid th Auto (RBC) [Ratio]Ordered By: Ayanna Vicente on 04-01-2022 Erythrocyte distribution width (RBC) [Ratio] 17.0 % 11.9-15.3 [facility] Estimated glomerular filtrat ion rate (GFR) non- AmericanOrdered By: Ayanna Vicente on 04-01-2022 GFR/1.73 sq M.predicted among non-blacks MDRD (S/P/Bld) [Vol rate/Area] > 60 mL/Min [facility] Globulin Calc (S) [Mass/Vol] Ordered By: Ayanna Vicente on 04-01-2022 Globulin (S) [Mass/Vol] 2.9 g/dL F [facility] Glucose mean value [Mass/vol ume] in Blood Estimated from glycated hemoglobinOrdered By: Ayanna Vicente on 04-01-2022 Average glucose Estimated from glycated hemoglobin (Bld) [Mass/Vol] 255 mg/dL [facility] Hematocrit Auto (Bld) [Volum e fraction]Ordered By: Ayanna Vicente on 04-01-2022 Hematocrit (Bld) [Volume fraction] 37.9 % 34.0-46.4 [facility] [place] Hemoglobin A1c percentageOrd ered By: Ayanna Vicente on 04-01-2022 HbA1c (Bld) [Mass fraction] 10.5 % 4.3-5.6 [facility] [place] Comment on above: Increased risk for d iabetes: 5.7 - 6.4 diabetes: >6.4 glycemic control for adults with diabetes: <7.0 Increased risk for d iabetes: 5.7 - 6.4diabetes: >6.4glycemic control for adults with diabetes: <7.0 Laboratory - Hematology and Cell countsOrdered By: Ayanna Vicente on 09-19-2022 Nucleated RBC/100 WBC (Bld) [Ratio] 0.2 % 0-0.5 [facility] [place] Lymphocytes Auto (Bld) [#/Vo l]Ordered By: Ayanna Vicente on 04-01-2022 Lymphocytes (Bld) [#/Vol] N/A [facility] [place] Lymphocytes/100 WBC Auto (Bl d)Ordered By: Ayanna Vicente on 04-01-2022 Lymphocytes/100 WBC (Bld) N/A [facility] [place] Lymphocytes/100 WBC (Bld) 60 % 18-42 [facility] [place] Lymphocytes/100 WBC Manual c nt (Bld)Ordered By: Ayanna Vicente on 04-01-2022 Lymphocytes/100 WBC (Bld) 3 % 0-12 [facility] [place] MCH Auto (RBC) [Entitic mass ]Ordered By: Ayanna Vicente on 04-01-2022 MCH (RBC) [Entitic mass] 28.3 pg 24.7-34.3 [facility] [place] MCHC Auto (RBC) [Mass/Vol]Or dered By: Ayanna Vicente on 04-01-2022 MCHC (RBC) [Mass/Vol] 32.4 g/dL 32.0-35.0 [facility] MCV Auto (RBC) [Entitic vol] Ordered By: Ayanna Vicente on 04-01-2022 MCV (RBC) [Entitic vol] 87.6 fL 80-100 F [facility] Manual blood monocytes/100 l eukocytesOrdered By: Ayanna Vicente on 04-01-2022 Monocytes/100 WBC (Bld) 3 % 1-3 F [facility] Monocytes Auto (Bld) [#/Vol] Ordered By: Ayanna Vicente on 04-01-2022 Monocytes (Bld) [#/Vol] N/A F [facility] Monocytes/100 WBC Auto (Bld) Ordered By: Ayanna Vicente on 04-01-2022 Monocytes/100 WBC (Bld) N/A [facility] Neutrophils Auto (Bld) [#/Vo l]Ordered By: Ayanna Vicente on 04-01-2022 Neutrophils (Bld) [#/Vol] N/A [facility] Neutrophils/100 WBC Auto (Bl d)Ordered By: Ayanna Vicente on 04-01-2022 Neutrophils/100 WBC (Bld) N/A [facility] [place] No Panel InformationOrdered By: Ayanna Vicente on 04-01-2022 Estimated GFR () > 60 mL/Min [facility] [place] Comment on above: GFR estimated refere nce range: According to KDOQI guidelines, <60 ml/min/1.73m2 is sufficient to diagnose a patient with chronic kidney disease. Pharmacy Creatinine Clearance (Chem N/A [facility] Platelet Estimate Normal Normal [facility] Platelet Morphology Comment Normal Normal [facility] Smudge Cells Few [facility] Platelet mean volume Auto (B ld) [Entitic vol]Ordered By: Ayanna Vicente on 04-01-2022 Platelet mean volume (Bld) [Entitic vol] 9.3 fL 6.3-10.7 [facility] [place] Platelets Auto (Bld) [#/Vol] Ordered By: Ayanna Vicente on 04-01-2022 Platelets (Bld) [#/Vol] 224 10*3/uL 150-450 [facility] [place] Protein [Mass/volume] in Ser um or PlasmaOrdered By: Ayanna Vicente on 04-01-2022 Protein [Mass/Vol] 6.4 g/dL 6.1-7.9 [facility] RBC Auto (Bld) [#/Vol]Ordere d By: Ayanna Vicente on 04-01-2022 RBC (Bld) [#/Vol] 4.33 10*6/uL 3.60-5.00 [facility] RBC morphologyOrdered By: Vasile Vicente on 04-01-2022 RBC morphology finding Nom (Bld) N/A [facility] [place] Segmented neutrophils/100 WB C Manual cnt (Bld)Ordered By: Ayanna Vicente on 04-01-2022 Segmented neutrophils/100 WBC (Bld) 29 % 50-70 [facility] [place] Serum or plasma alanine roman otransferase measurement without P-5'-P (enzymatic activiOrdered By: Ayanna Vicente on 04-01-2022 ALT No additional P-5'-P [Catalytic activity/Vol] 24 U/L 10-60 [facility] Serum or plasma albumin/glob ulin mass ratioOrdered By: Ayanna Vicente on 04-01-2022 Albumin/Globulin [Mass ratio] 1.2 {ratio} [facility] [place] Serum or plasma alkaline mayelin sphatase measurement (enzymatic activity/volume)Ordered By: Ayanna Vicente on 04-01-2022 ALP [Catalytic activity/Vol] 75 U/L 32-92 [facility] [place] Serum or plasma anion gap de terminationOrdered By: Ayanna Vicente on 04-01-2022 Anion gap [Moles/Vol] 15.8 mmol/L 6.0-15.0 [facility] Serum or plasma aspartate am inotransferase measurement (enzymatic activity/volume)Ordered By: Ayanna Vicente on 04-01-2022 AST [Catalytic activity/Vol] 26 U/L 10-42 [facility] [place] Serum or plasma calcium massimo urement (mass/volume)Ordered By: Ayanna Vicente on 04-01-2022 Calcium [Mass/Vol] 9.3 mg/dL 8.2-10.2 [facility] Serum or plasma chloride chris surement (moles/volume)Ordered By: Ayanna Vicente on 04-01-2022 Chloride [Moles/Vol] 103 mmol/L 95-114 [facility] Serum or plasma glucose massimo urement (mass/volume)Ordered By: Ayanna Vicente on 04-01-2022 Glucose [Mass/Vol] 163 mg/dL 70-100 [facility] Comment on above: ADA recommended refe rence [...] HDL [Mass/Vol] 50 mg/dL 35-85 [facility] [place] Comment on above: HDL CHOL ATP-III CLA SSIFICATION Cardiovascular Risk HDL > or equal to 60 mg/dL LOW HDL < 40 mg/dL HIGH HDL CHOL ATP-III CLA SSIFICATION Cardiovascular RiskHDL > or equal to 60 mg/dL LOWHDL < 40 mg/dL HIGH Serum or plasma potassium me asurement (moles/volume)Ordered By: Ayanna Vicente on 04-01-2022 Potassium [Moles/Vol] 4.4 mmol/L 3.5-5.1 [facility] Serum or plasma sodium measu rement (moles/volume)Ordered By: Ayanna Vicente on 04-01-2022 Sodium [Moles/Vol] 141 mmol/L 136-146 [facility] Serum or plasma total biliru bin measurement (mass/volume)Ordered By: Ayanna Vicente on 04-01-2022 Bilirubin [Mass/Vol] 0.3 mg/dL 0.3-1.2 [facility] Serum or plasma total carbon dioxide measurement (moles/volume)Ordered By: Ayanna Vicente on 04-01-2022 CO2 [Moles/Vol] 26.6 mmol/L 22.0-30.0 [facility] Serum or plasma total choles terol/high density lipoprotein (HDL) cholesterol mass ratOrdered By: Ayanna Vicente on 04-01-2022 Cholesterol.total/Choles terol in HDL [Mass ratio] 2.0 {ratio} <5.0 [facility] [place] Serum or plasma urea nitroge n measurement (mass/volume)Ordered By: Ayanna Vicente on 04-01-2022 Urea nitrogen [Mass/Vol] 12 mg/dL 9-23 [facility] [place] TSH DL <= 0.005 mIU/L QnOrde red By: Ayanna Vicente on 04-01-2022 TSH Qn 1.11 m[IU]/L 0.45-5.33 [facility] [place] Thyroxine (T4) free [Mass/vo lume] in Serum or PlasmaOrdered By: Ayanna Vicente on 04-01-2022 Free T4 [Mass/Vol] 1.02 ng/dL 0.61-1.12 [facility] Triglyceride [Mass/volume] i n Serum or PlasmaOrdered By: Ayanna Vicente on 04-01-2022 Triglyceride [Mass/Vol] 125 mg/dL 35-149 F [facility] Comment on above: TRIG ATP III [...] 04-01-2022 Free T3 [Mass/Vol] 2.81 pg/mL 2.50-3.90 [facility] Glucose Glucometer (BldC) [M ass/Vol]Ordered By: Galo Max on 01-26-2022 Glucose [Mass/Vol] 117 mg/dL [facility] Comment on above: Random Glucose Refer ence Range is dependent on time and content of last meal. Glucose of more than 200 mg/dL in a nonstressed, ambulatory subject supports the diagnosis of Diabetes Mellitus. Basophils Auto (Bld) [#/Vol] Ordered By: Ashley Ramos on 01-25-2022 Basophils (Bld) [#/Vol] 0.0 10*3/uL 0.0-0.2 [facility] [place] Basophils/100 WBC Auto (Bld) Ordered By: Ashley Ramos on 01-25-2022 Basophils/100 WBC (Bld) 0.3 % . F [facility] Blood hemoglobin measurement (mass/volume)Ordered By: Ashley Ramos on 01-25-2022 Hemoglobin (Bld) [Mass/Vol] 11.0 g/dL 11.8-15.4 [facility] [place] Blood leukocytes automated c ount (number/volume)Ordered By: Ashley Ramos on 01-25-2022 WBC (Bld) [#/Vol] 9.5 10*3/uL 4.5-11.0 [facility] Creatinine and Glomerular fi ltration rate.predicted panel (S/P/Bld)Ordered By: Ashley Ramos on 01-25-2022 Creatinine [Mass/Vol] 0.78 mg/dL 0.44-1.03 [facility] Eosinophils Auto (Bld) [#/Vo l]Ordered By: Ashley Ramos on 01-25-2022 Eosinophils (Bld) [#/Vol] 0.3 10*3/uL 0.0-0.45 [facility] [place] Eosinophils/100 WBC Auto (Bl d)Ordered By: Ashley Ramos on 01-25-2022 Eosinophils/100 WBC (Bld) 3.6 % . [facility] [place] Erythrocyte distribution wid th Auto (RBC) [Ratio]Ordered By: Ashley Ramos on 01-25-2022 Erythrocyte distribution width (RBC) [Ratio] 15.4 % 11.9-15.3 [facility] [place] Estimated glomerular filtrat ion rate (GFR) non- AmericanOrdered By: Ashley Ramos on 01-25-2022 GFR/1.73 sq M.predicted among non-blacks MDRD (S/P/Bld) [Vol rate/Area] > 60 mL/Min [facility] [place] Hematocrit Auto (Bld) [Volum e fraction]Ordered By: Ashley Ramos on 01-25-2022 Hematocrit (Bld) [Volume fraction] 33.2 % 34.0-46.4 [facility] [place] Laboratory - Hematology and Cell countsOrdered By: Ashley Ramos on 01-25-2022 Nucleated RBC/100 WBC (Bld) [Ratio] 0.2 % 0-0.5 [facility] [place] Lymphocytes Auto (Bld) [#/Vo l]Ordered By: Ashley Ramos on 01-25-2022 Lymphocytes (Bld) [#/Vol] 6.4 10*3/uL 1.00-4.8 [facility] [place] Lymphocytes/100 WBC Auto (Bl d)Ordered By: Ashley Ramos on 01-25-2022 Lymphocytes/100 WBC (Bld) 67.6 % . [facility] [place] MCH Auto (RBC) [Entitic mass ]Ordered By: Ashley Ramos on 01-25-2022 MCH (RBC) [Entitic mass] 28.7 pg 24.7-34.3 [facility] [place] MCHC Auto (RBC) [Mass/Vol]Or dered By: Ashley Ramos on 01-25-2022 MCHC (RBC) [Mass/Vol] 33.3 g/dL 32.0-35.0 [facility] MCV Auto (RBC) [Entitic vol] Ordered By: Ashley Ramos on 01-25-2022 MCV (RBC) [Entitic vol] 86.3 fL 80-100 F [facility] Monocytes Auto (Bld) [#/Vol] Ordered By: Ashley Ramos on 01-25-2022 Monocytes (Bld) [#/Vol] 0.7 10*3/uL 0.0-0.8 [facility] [place] Monocytes/100 WBC Auto (Bld) Ordered By: Ashley Ramos on 01-25-2022 Monocytes/100 WBC (Bld) 7.4 % . F [facility] Neutrophils Auto (Bld) [#/Vo l]Ordered By: Ashley Ramos on 01-25-2022 Neutrophils (Bld) [#/Vol] 2.0 10*3/uL 1.8-7.7 [facility] [place] Neutrophils/100 WBC Auto (Bl d)Ordered By: Ashley Ramos on 01-25-2022 Neutrophils/100 WBC (Bld) 21.1 % . [facility] [place] No Panel InformationOrdered By: Ashley Ramos on 01-25-2022 Estimated GFR () > 60 mL/Min [facility] [place] Comment on above: GFR estimated refere nce range: According to KDOQI guidelines, <60 ml/min/1.73m2 is sufficient to diagnose a patient with chronic kidney disease. Pharmacy Creatinine Clearance (Chem 76.46 [facility] [place] Platelet Estimate Normal Normal [facility] Platelet Morphology Comment Normal Normal [facility] Smudge Cells Few [facility] [place] Platelet mean volume Auto (B ld) [Entitic vol]Ordered By: Ashley Ramos on 01-25-2022 Platelet mean volume (Bld) [Entitic vol] 8.6 fL 6.3-10.7 [facility] [place] Platelets Auto (Bld) [#/Vol] Ordered By: Ashley Ramos on 01-25-2022 Platelets (Bld) [#/Vol] 240 10*3/uL 150-450 [facility] [place] RBC Auto (Bld) [#/Vol]Ordere d By: Ashley Ramos on 01-25-2022 RBC (Bld) [#/Vol] 3.84 10*6/uL 3.60-5.00 [facility] RBC morphologyOrdered By: Kendall Ramos on 01-25-2022 RBC morphology finding Nom (Bld) Normal [facility] [place] Serum or plasma calcium massimo urement (mass/volume)Ordered By: Ashley Ramos on 01-25-2022 Calcium [Mass/Vol] 8.7 mg/dL 8.2-10.2 [facility] Serum or plasma chloride chris surement (moles/volume)Ordered By: Ashley Ramos on 01-25-2022 Chloride [Moles/Vol] 101 mmol/L 95-114 [facility] Serum or plasma glucose massimo urement (mass/volume)Ordered By: Ashley Ramos on 01-25-2022 Glucose [Mass/Vol] 133 mg/dL 70-100 [facility] Comment on above: ADA recommended refe rence [...] on 01-25-2022 Potassium [Moles/Vol] 4.0 mmol/L 3.5-5.1 [facility] Serum or plasma sodium measu rement (moles/volume)Ordered By: Ashley Ramos on 01-25-2022 Sodium [Moles/Vol] 141 mmol/L 136-146 [facility] Serum or plasma total carbon dioxide measurement (moles/volume)Ordered By: Ashley Ramos on 01-25-2022 CO2 [Moles/Vol] 30.7 mmol/L 22.0-30.0 [facility] Serum or plasma urea nitroge n measurement (mass/volume)Ordered By: Ashley Ramos on 01-25-2022 Urea nitrogen [Mass/Vol] 14 mg/dL 9-23 [facility] No Panel InformationOrdered By: Galo Max on 01-24-2022 Bedside Glucose Comment Glu2: cleaned meter [facility] [place] Bacterial blood cultureOrder ed By: James Redding on 01-18-2022 Bacteria identified Cx Nom (Bld) NO GROWTH 5 DAYS [facility] [place] Albumin [Mass/volume] in Ser um or PlasmaOrdered By: Galo Max on 01-16-2022 Albumin [Mass/Vol] 3.1 g/dL 3.2-5.5 [facility] Blood acanthocytes detection by light microscopyOrdered By: Galo Max on 01-16-2022 Acanthocytes LM Ql (Bld) Rare [facility] [place] Globulin Calc (S) [Mass/Vol] Ordered By: Galo Max on 01-16-2022 Globulin (S) [Mass/Vol] 3.0 g/dL F [facility] No Panel InformationOrdered By: Galo Max on 01-16-2022 CBC Comment See comment [facility] [place] Comment on above: Slide referred to joshua thologist for review Protein [Mass/volume] in Ser um or PlasmaOrdered By: Galo Max on 01-16-2022 Protein [Mass/Vol] 6.1 g/dL 6.1-7.9 [facility] Serum or plasma alanine roman otransferase measurement without P-5'-P (enzymatic activiOrdered By: Galo Max on 01-16-2022 ALT No additional P-5'-P [Catalytic activity/Vol] 24 U/L 10-60 [facility] Serum or plasma albumin/glob ulin mass ratioOrdered By: Galo Max on 01-16-2022 Albumin/Globulin [Mass ratio] 1.0 {ratio} [facility] [place] Serum or plasma alkaline mayelin sphatase measurement (enzymatic activity/volume)Ordered By: Galo Max on 01-16-2022 ALP [Catalytic activity/Vol] 88 U/L 32-92 [facility] [place] Serum or plasma aspartate am inotransferase measurement (enzymatic activity/volume)Ordered By: Galo Max on 01-16-2022 AST [Catalytic activity/Vol] 23 U/L 10-42 [facility] [place] Serum or plasma prealbumin m easurement (mass/volume)Ordered By: Galo Max on 01-16-2022 Prealbumin [Mass/Vol] 22.1 mg/dL 18.0-38.0 [facility] Serum or plasma total biliru bin measurement (mass/volume)Ordered By: Galo Max on 01-16-2022 Bilirubin [Mass/Vol] 0.6 mg/dL 0.3-1.2 [facility] Creatinine and Glomerular fi ltration rate.predicted panel (S/P/Bld)Ordered By: Bertram Garrison on 01-15-2022 Creatinine [Mass/Vol] 0.80 mg/dL 0.44-1.03 [facility] Comment on above: Delta: 1.35 on 01/14 Estimated glomerular filtrat ion rate (GFR) non- AmericanOrdered By: Bertram Garrison on 01-15-2022 GFR/1.73 sq M.predicted among non-blacks MDRD (S/P/Bld) [Vol rate/Area] > 60 mL/Min [facility] [place] Glucose Glucometer (BldC) [M ass/Vol]Ordered By: Bertram Garrison on 01-15-2022 Glucose [Mass/Vol] 226 mg/dL [facility] Comment on above: Random Glucose Refer ence Range is dependent on time and content of last meal. Glucose of more than 200 mg/dL in a nonstressed, ambulatory subject supports the diagnosis of Diabetes Mellitus. No Panel InformationOrdered By: Bertram Garrison on 01-15-2022 Bedside Glucose Comment Glu2: cleaned meter [facility] [place] Estimated GFR () > 60 mL/Min [facility] [place] Comment on above: GFR estimated refere nce range: According to KDOQI guidelines, <60 ml/min/1.73m2 is sufficient to diagnose a patient with chronic kidney disease. Pharmacy Creatinine Clearance (Chem 75.85 [facility] [place] Serum or plasma calcium massimo urement (mass/volume)Ordered By: Bertram Garrison on 01-15-2022 Calcium [Mass/Vol] 9.2 mg/dL 8.2-10.2 [facility] Serum or plasma chloride chris surement (moles/volume)Ordered By: Bertram Garrison on 01-15-2022 Chloride [Moles/Vol] 99 mmol/L 95-114 [facility] Serum or plasma glucose massimo urement (mass/volume)Ordered By: Bertram Garrison on 01-15-2022 Glucose [Mass/Vol] 293 mg/dL 70-100 [facility] Comment on above: ADA recommended refe rence range Random Glucose Reference Range is dependent on time and content of last meal. Glucose of more than 200 mg/dL in a nonstressed, ambulatory subject supports the diagnosis of Diabetes Mellitus. Serum or plasma potassium me asurement (moles/volume)Ordered By: Bertram Garrison on 01-15-2022 Potassium [Moles/Vol] 4.3 mmol/L 3.5-5.1 [facility] Serum or plasma sodium measu rement (moles/volume)Ordered By: Bertram Garrison on 01-15-2022 Sodium [Moles/Vol] 136 mmol/L 136-146 [facility] Serum or plasma total carbon dioxide measurement (moles/volume)Ordered By: Bertram Garrison on 01-15-2022 CO2 [Moles/Vol] 29.1 mmol/L 22.0-30.0 [facility] Serum or plasma urea nitroge n measurement (mass/volume)Ordered By: Bertram Garrison on 01-15-2022 Urea nitrogen [Mass/Vol] 23 mg/dL 9-23 [facility] Urine culture routineOrdered By: James Redding on 01-15-2022 Bacteria identified Cx Nom (U) Enterococcus faecalis [facility] [place] Basophils Auto (Bld) [#/Vol] Ordered By: Bertram Garrison on 01-14-2022 Basophils (Bld) [#/Vol] 0.1 10*3/uL 0.0-0.2 [facility] [place] Basophils/100 WBC Auto (Bld) Ordered By: Bertram Garrison on 01-14-2022 Basophils/100 WBC (Bld) 0.6 % . F [facility] Blood acanthocytes detection by light microscopyOrdered By: Bertram Garrison on 01-14-2022 Acanthocytes LM Ql (Bld) Few [facility] [place] Blood hemoglobin measurement (mass/volume)Ordered By: Bertram Garrison on 01-14-2022 Hemoglobin (Bld) [Mass/Vol] 11.7 g/dL 11.8-15.4 [facility] [place] Blood leukocytes automated c ount (number/volume)Ordered By: Bertram Garrison on 01-14-2022 WBC (Bld) [#/Vol] 11.5 10*3/uL 4.5-11.0 [facility] Eosinophils Auto (Bld) [#/Vo l]Ordered By: Bertram Garrison on 01-14-2022 Eosinophils (Bld) [#/Vol] 0.4 10*3/uL 0.0-0.45 [facility] [place] Eosinophils/100 WBC Auto (Bl d)Ordered By: Bertram Garrison on 01-14-2022 Eosinophils/100 WBC (Bld) 3.3 % . [facility] [place] Erythrocyte distribution wid th Auto (RBC) [Ratio]Ordered By: Bertram Garrison on 01-14-2022 Erythrocyte distribution width (RBC) [Ratio] 14.4 % 11.9-15.3 [facility] [place] Hematocrit Auto (Bld) [Volum e fraction]Ordered By: Bertram Garrison on 01-14-2022 Hematocrit (Bld) [Volume fraction] 35.4 % 34.0-46.4 [facility] [place] Laboratory - Hematology and Cell countsOrdered By: Bertram Garrison on 01-14-2022 Nucleated RBC/100 WBC (Bld) [Ratio] 0.3 % 0-0.5 [facility] [place] Lymphocytes Auto (Bld) [#/Vo l]Ordered By: Bertram Garrison on 01-14-2022 Lymphocytes (Bld) [#/Vol] 7.2 10*3/uL 1.00-4.8 [facility] [place] Lymphocytes/100 WBC Auto (Bl d)Ordered By: Bertram Garrison on 01-14-2022 Lymphocytes/100 WBC (Bld) 62.9 % . [facility] MCH Auto (RBC) [Entitic mass ]Ordered By: Bertram Garrison on 01-14-2022 MCH (RBC) [Entitic mass] 28.4 pg 24.7-34.3 [facility] MCHC Auto (RBC) [Mass/Vol]Or dered By: Bertram Garrison on 01-14-2022 MCHC (RBC) [Mass/Vol] 32.9 g/dL 32.0-35.0 [facility] MCV Auto (RBC) [Entitic vol] Ordered By: Bertram Garrison on 01-14-2022 MCV (RBC) [Entitic vol] 86.1 fL 80-100 F [facility] Monocytes Auto (Bld) [#/Vol] Ordered By: Bertram Garrison on 01-14-2022 Monocytes (Bld) [#/Vol] 0.6 10*3/uL 0.0-0.8 [facility] Monocytes/100 WBC Auto (Bld) Ordered By: Bertram Garrison on 01-14-2022 Monocytes/100 WBC (Bld) 5.0 % . F [facility] Neutrophils Auto (Bld) [#/Vo l]Ordered By: Bertram Garrison on 01-14-2022 Neutrophils (Bld) [#/Vol] 3.2 10*3/uL 1.8-7.7 [facility] [place] Neutrophils/100 WBC Auto (Bl d)Ordered By: Bertram Garrison on 01-14-2022 Neutrophils/100 WBC (Bld) 28.2 % . [facility] No Panel InformationOrdered By: Bertram Garrison on 01-14-2022 Platelet Estimate Normal Normal [facility] Platelet Morphology Comment Normal Normal [facility] Platelet mean volume Auto (B ld) [Entitic vol]Ordered By: Bertram Garrison on 01-14-2022 Platelet mean volume (Bld) [Entitic vol] 9.8 fL 6.3-10.7 [facility] Platelets Auto (Bld) [#/Vol] Ordered By: Bertram Garrison on 01-14-2022 Platelets (Bld) [#/Vol] 277 10*3/uL 150-450 [facility] RBC Auto (Bld) [#/Vol]Ordere d By: Bertram Garrison on 01-14-2022 RBC (Bld) [#/Vol] 4.11 10*6/uL 3.60-5.00 [facility] RBC morphologyOrdered By: New Garrison on 01-14-2022 RBC morphology finding Nom (Bld) Normal [facility] Albumin [Mass/volume] in Ser um or PlasmaOrdered By: James Redding on 01-13-2022 Albumin [Mass/Vol] 3.1 g/dL 3.2-5.5 [facility] Automated erythrocytes count in urine sediment (number/area)Ordered By: James Redding on 01-13-2022 RBC Auto (Urine sed) [#/Area] 0-1 [HPF] 0-4 [facility] Automated leukocytes count i n urine sediment (number/area)Ordered By: James Redding on 01-13-2022 WBC Auto (Urine sed) [#/Area] 50-100 [HPF] 0-4 [facility] Bilirubin Test strip Ql (U)O rdered By: James Redding on 01-13-2022 Bilirubin Ql (U) 1+ Negative [facility] COVID-19 Positive/NegativeOr dered By: James Redding on 01-13-2022 SARS-CoV-2 (COVID-19) N gene FARRAH+probe Ql (Resp) Negative Negative [facility] Comment on above: Testing for SARS-CoV -2 by RT-PCR This test was developed and its performance characteristics determined by [employer] and validated at the [facility] [place]. This test has not been FDA cleared [...] IA.rapid Ql (Resp) Negative Negative [facility] [place] Comment on above: This is a duplicate Brianna SARS Antigen (DUSTIN) result to be used for statistical tracking purpose only. Color Auto (U)Ordered By: Anni Redding on 01-13-2022 Color (U) Dark yellow Yellow [facility] [place] Globulin Calc (S) [Mass/Vol] Ordered By: James Redding on 01-13-2022 Globulin (S) [Mass/Vol] 3.0 g/dL F [facility] Ketones Auto test strip (U) [Mass/Vol]Ordered By: James Redding on 01-13-2022 Ketones (U) [Mass/Vol] Trace Negative [facility] - UrinalysisOrder ed By: James Redding on 01-13-2022 Hyaline casts LM Ql (Urine sed) 9-19 [LPF] 0-8 [facility] Nitrite Test strip Ql (U)Ord ered By: James Redding on 01-13-2022 Nitrite Ql (U) Negative Negative [facility] [place] No Panel InformationOrdered By: James Redding on 01-13-2022 Smudge Cells Few [facility] [place] SARS Antigen (LFIA) [facility] Protein Auto test strip (U) [Mass/Vol]Ordered By: James Redding on 01-13-2022 Protein (U) [Mass/Vol] 30 mg/dL Negative [facility] Protein [Mass/volume] in Ser um or PlasmaOrdered By: James Redding on 01-13-2022 Protein [Mass/Vol] 6.1 g/dL 6.1-7.9 [facility] Serum or plasma alanine roman otransferase measurement without P-5'-P (enzymatic activiOrdered By: James Redding on 01-13-2022 ALT No additional P-5'-P [Catalytic activity/Vol] 27 U/L 10-60 [facility] Serum or plasma albumin/glob ulin mass ratioOrdered By: James Redding on 01-13-2022 Albumin/Globulin [Mass ratio] 1.0 {ratio} [facility] [place] Serum or plasma alkaline mayelin sphatase measurement (enzymatic activity/volume)Ordered By: James Redding on 01-13-2022 ALP [Catalytic activity/Vol] 95 U/L 32-92 [facility] [place] Serum or plasma aspartate am inotransferase measurement (enzymatic activity/volume)Ordered By: James Redding on 01-13-2022 AST [Catalytic activity/Vol] 27 U/L 10-42 [facility] [place] Serum or plasma total biliru bin measurement (mass/volume)Ordered By: James Redding on 01-13-2022 Bilirubin [Mass/Vol] 0.6 mg/dL 0.3-1.2 [facility] Specific gravity Auto test s trip (U) [Rel density]Ordered By: James Redding on 01-13-2022 Specific gravity (U) [Rel density] 1.029 1.001-1.030 [facility] [place] Squamous epithelial cells de tection in urine sediment by light microscopyOrdered By: James Redding on 01-13-2022 Epithelial cells.squamous LM Ql (Urine sed) 1-2 [HPF] 0-1 [facility] [place] Troponin I.cardiac [Mass/vol ume] in Serum or Plasma by High sensitivity methodOrdered By: James Redding on 01-13-2022 Troponin I.cardiac High sensitivity method [Mass/Vol] 4 pg/mL 0-15 [facility] [place] Urine bacteria detection by automated methodOrdered By: James Redding on 01-13-2022 Bacteria Auto Ql (U) 2+ None Seen [facility] Urine clarity by refractomet ry automatedOrdered By: James Redding on 01-13-2022 Clarity Refractometry automated (U) Cloudy Clear [facility] [place] Urine glucose measurement by automated test strip (mass/volume)Ordered By: James Redding on 01-13-2022 Glucose Auto test strip (U) [Mass/Vol] Normal mg/dL Normal [facility] [place] Urine hemoglobin detection b y automated test stripOrdered By: James Redding on 01-13-2022 Hemoglobin Auto test strip Ql (U) Negative Negative [facility] [place] Urine leukocyte esterase det ection by automated test stripOrdered By: James Redding on 01-13-2022 Leukocyte esterase Auto test strip Ql (U) 3+ Negative [facility] [place] Urobilinogen Auto test strip (U) [Mass/Vol]Ordered By: James Redding on 01-13-2022 Urobilinogen (U) [Mass/Vol] Normal mg/dL Normal [facility] [place] pH Auto test strip (U)Ordere d By: James Redding on 01-13-2022 pH (U) 5.0 [pH] 5.0-9.0 [facility] CARDIAC STRESS/REST INJE CTIONon 01-04-2021 [facility] CARDIAC STRESS/REST INJECTION Patient Name: KATHY WASHBURN STUDY: MYOCARDIAL PERFUSION STRESS TEST WITH LEXISCAN Performing facility: [facility], [address] [place] [address], [address] Provider: Osmel Fernandes MD, FACC PCP: Dr. Lyndon Vicente Supervising provider: Osmel Fernandes MD, FACC INDICATION: Chest Pain; HTN Hyperlipidemia Diabetes Dyspnea HISTORY: Gender: F; Age: 80 y/o ; Height: 175.26 cm; Weight: [id number] kg. High Cholesterol; Diabetes; HTN; Chest Pain; SOB; Quit smoking Unknown years ago. COMPARISON: Previous nuclear testing completed at [facility]. ACCESSION NUMBER(S): [id number]; [id number]; [id number] ORDERING CLINICIAN: MONET FERNANDES TECHNIQUE: ONE DAY [...] comparison. Electronically signed by: SARAH HODGES MD [facility] Vital Signs Date Time Vital Sign Value Performing Clinician Faci lity 02-15-2025 14:44-0400 Body height 175.26 cm Ayanna Vicente DO Work Phone: [facility] [place] 02-15-2025 14:44-0400 Body mass index (BMI) [Ratio] 34 kg/m2 Ayanna Vicente DO Work Phone: [facility] [place] 02-15-2025 14:44-0400 Body temperature 98.3 [degF] Ayanna Vicente DO Work Phone: [facility] [place] 02-15-2025 14:44-0400 Body weight 104.32 kg Ayanna Vicente DO Work Phone: [facility] [place] 02-15-2025 14:44-0400 Diastolic blood pressure 82 mm[Hg] Ayanna Vicente DO Work Phone: [facility] [place] 02-15-2025 14:44-0400 Heart rate 79 /min Ayanna Vicente DO Work Phone: [facility] [place] 02-15-2025 14:44-0400 SaO2% (BldA) [Mass fraction] 92 % Ayanna Vicente DO Work Phone: [facility] [place] 02-15-2025 14:44-0400 Systolic blood pressure 120 mm[Hg] Ayanna Vicente DO Work Phone: [facility] [place] 01-27-2025 13:56-0400 Body height 175.26 cm Ayanna Girvin DO Work Phone: [facility] [place] 01-27-2025 13:56-0400 Body mass index (BMI) [Ratio] 33.5 kg/m2 Ayanna Vicente DO Work Phone: [facility] [place] 01-27-2025 13:56-0400 Body weight 103.02 kg Ayanna Vicente DO Work Phone: [facility] [place] 01-27-2025 13:56-0400 Diastolic blood pressure 74 mm[Hg] Ayanna Vicente DO Work Phone: [facility] [place] 01-27-2025 13:56-0400 Heart rate 59 /min Ayanna Vicente DO Work Phone: [facility] [place] 01-27-2025 13:56-0400 Respiratory rate 16 /min Ayanna Vicente DO Work Phone: [facility] [place] 01-27-2025 13:56-0400 SaO2% (BldA) [Mass fraction] 94 % Ayanna Vicente DO Work Phone: [facility] [place] 01-27-2025 13:56-0400 Systolic blood pressure 122 mm[Hg] Ayanna Vicente DO Work Phone: [facility] [place] 01-12-2025 13:23-0400 Body height 175.3 cm Moe Itzkowitz DO Work Phone: [facility] 01-12-2025 13:23-0400 Body mass index (BMI) [Ratio] 33.23 kg/m2 Moe Itzkowitz DO Work Phone: [facility] 01-12-2025 13:23-0400 Body weight 102.06 kg Moe Itzkowitz DO Work Phone: [facility] 01-12-2025 13:23-0400 Diastolic blood pressure 76 mm[Hg] Moe Itzkowitz DO Work Phone: [facility] 01-12-2025 13:23-0400 Systolic blood pressure 122 mm[Hg] Moe Itzkowitz DO Work Phone: [facility] 12-17-2024 10:270400 Body height 172.7 cm Zohaib German MD Work Phone: [facility] 12-17-2024 10:27-0400 Body mass index (BMI) [Ratio] 34.74 kg/m2 Zohaib German MD Work Phone: [facility] 12-17-2024 10:27-0400 Body temperature 64.99 [degF] Zohaib German MD Work Phone: [facility] 12-17-2024 10:270400 Body weight 103.6 kg Zohaib German MD Work Phone: [facility] 12-17-2024 10:27-0400 Diastolic blood pressure 71 mm[Hg] Zohaib German MD Work Phone: [facility] 12-17-2024 10:27-0400 Systolic blood pressure 112 mm[Hg] Zohaib German MD Work Phone: [facility] 12-16-2024 [id number] Body height 175.26 cm [facility] 12-16-2024 14:21-0400 Body mass index (BMI) [Ratio] 34.9 kg/m2 [facility] [place] 12-16-2024 14:21-0400 Body temperature 96.9 [degF] [facility] 12-16-2024 14:21-0400 Body weight 107.5 kg [facility] 12-16-2024 14:21-0400 Diastolic blood pressure 69 mm[Hg] [facility] [place] 12-16-2024 14:21-0400 Heart rate 68 /min [facility] 12-16-2024 14:21-0400 Respiratory rate 18 /min [facility] 12-16-2024 14:21-0400 SaO2% (BldA) [Mass fraction] 92 % [facility] [place] 12-16-2024 14:21-0400 Systolic blood pressure 104 mm[Hg] [facility] 11-10-2024 15:40-0400 Body height 175.26 cm [facility] 11-10-2024 15:40-0400 Body mass index (BMI) [Ratio] 32.9 kg/m2 [facility] [place] 11-10-2024 15:40-0400 Body temperature 97.3 [degF] [facility] 11-10-2024 15:40-0400 Body weight 101.15 kg [facility] 11-10-2024 15:40-0400 Diastolic blood pressure 84 mm[Hg] [facility] 11-10-2024 15:40-0400 Heart rate 74 /min [facility] 11-10-2024 15:40-0400 SaO2% (BldA) [Mass fraction] 94 % [facility] [place] 11-10-2024 15:40-0400 Systolic blood pressure 132 mm[Hg] [facility] 08-16-2024 09:06-0500 Diastolic blood pressure 58 mm[Hg] SUSAN JAX [facility] 08-16-2024 09:06-0500 Heart rate 69 /min SUSAN JAX [facility] 08-16-2024 09:06-0500 Respiratory rate 16 /min SUSAN JAX [facility] 08-16-2024 09:06-0500 Systolic blood pressure 92 mm[Hg] SUSAN JAX [facility] 08-09-2024 14:16-0500 Body mass index (BMI) [Ratio] 32.93 kg/m2 Esvin Dubon NP Work Phone: [facility] 08-09-2024 14:16-0500 Body weight 101.15 kg Esvin Dubon COPPING MACHINE OPERATOR Work Phone: [facility] 08-09-2024 14:16-0500 Diastolic blood pressure 87 mm[Hg] Esvin Dubon COPPING MACHINE OPERATOR Work Phone: [facility] 08-09-2024 14:16-0500 Heart rate 64 /min Esvin Dubon COPPING MACHINE OPERATOR Work Phone: [facility] 08-09-2024 14:16-0500 Systolic blood pressure 125 mm[Hg] Esvin Dubon COPPING MACHINE OPERATOR Work Phone: [facility] 06-23-2024 14:34-0500 Body height 175.3 cm Moe Itzkowitz DO Work Phone: [facility] 06-23-2024 14:34-0500 Body mass index (BMI) [Ratio] 33.67 kg/m2 Moe Itzkowitz DO Work Phone: [facility] 06-23-2024 14:34-0500 Body weight 103.42 kg Moe Itzkowitz DO Work Phone: [facility] 06-23-2024 14:34-0500 Diastolic blood pressure 85 mm[Hg] Moe Itzkowitz DO Work Phone: [facility] 06-23-2024 14:34-0500 Systolic blood pressure 135 mm[Hg] Moe Itzkowitz DO Work Phone: [facility] 06-17-2024 13:58-0500 Body mass index (BMI) [Ratio] 33.82 kg/m2 Christopher Aundrea DO Work Phone: [facility] 06-17-2024 13:58-0500 Body weight 103.87 kg Christopher Aundrea DO Work Phone: [facility] 06-17-2024 13:58-0500 Diastolic blood pressure 74 mm[Hg] Christopher Aundrea DO Work Phone: [facility] 06-17-2024 13:58-0500 Heart rate 84 /min Christopher Aundrea DO Work Phone: [facility] 06-17-2024 13:58-0500 SaO2% (BldA) [Mass fraction] 90 % Christopher Aundrea DO Work Phone: [facility] 06-17-2024 13:58-0500 Systolic blood pressure 138 mm[Hg] Primoalicia Guillaume DO Work Phone: [facility] 05-26-2024 13:54-0500 Body height 172.7 cm Chad Freitas MD Work Phone: [facility] 05-26-2024 13:54-0500 Body mass index (BMI) [Ratio] 35.31 kg/m2 Chad Freitas MD Work Phone: [facility] 05-26-2024 13:54-0500 Body temperature 97 [degF] Chad Freitas MD Work Phone: [facility] 05-26-2024 13:54-0500 Body weight 105.33 kg Chad Freitas MD Work Phone: [facility] 05-26-2024 13:54-0500 Diastolic blood pressure 51 mm[Hg] Chad Freitas MD Work Phone: [facility] 05-26-2024 13:54-0500 Heart rate 70 /min Chad Freitas MD Work Phone: [facility] 05-26-2024 13:54-0500 Respiratory rate 16 /min Chad Freitas MD Work Phone: [facility] 05-26-2024 13:54-0500 SaO2% (BldA) [Mass fraction] 91 % Chad Freitas MD Work Phone: [facility] 05-26-2024 13:54-0500 Systolic blood pressure 92 mm[Hg] Chad Freitas MD Work Phone: [facility] 05-17-2024 13:00-0500 Body height 172.7 cm Zohaib German MD Work Phone: [facility] 05-17-2024 13:00-0500 Body mass index (BMI) [Ratio] 34.67 kg/m2 Zohaib German MD Work Phone: [facility] 05-17-2024 13:00-0500 Body weight 103.4 kg Zohaib German MD Work Phone: [facility] 05-17-2024 13:00-0500 Diastolic blood pressure 75 mm[Hg] Zohaib German MD Work Phone: [facility] 05-17-2024 13:00-0500 Heart rate 62 /min Zohaib German MD Work Phone: [facility] 05-17-2024 13:00-0500 Systolic blood pressure 117 mm[Hg] Zohaib German MD Work Phone: [facility] 05-12-2024 13:50-0400 Body height 180.34 cm DO Ayanna Vicente Work Phone: [facility] [place] 05-12-2024 13:50-0400 Body mass index (BMI) [Ratio] 32.2 kg/m2 DO Ayanna Vicente Work Phone: [facility] [place] 05-12-2024 13:50-0400 Body weight 104.77 kg DO Ayanna Vicente Work Phone: [facility] [place] 05-12-2024 13:50-0400 Diastolic blood pressure 57 mm[Hg] DO Ayanna Ogabbi Work Phone: [facility] [place] 05-12-2024 13:50-0400 Heart rate 86 /min DO Ayanna Vicente Work Phone: [facility] [place] 05-12-2024 13:50-0400 SaO2% (BldA) [Mass fraction] 93 % DO Ayanna Vicente Work Phone: [facility] [place] 05-12-2024 13:50-0400 Systolic blood pressure 128 mm[Hg] DO Ayanna Vicente Work Phone: [facility] [place] 05-11-2024 14:45-0400 Body mass index (BMI) [Ratio] 31.9 kg/m2 DO Ayanna Vicente Work Phone: [facility] [place] 05-11-2024 14:45-0400 Body temperature 97.3 [degF] DO Ayanna Vicente Work Phone: [facility] [place] 05-11-2024 14:45-0400 Diastolic blood pressure 70 mm[Hg] DO Ayanna Vicente Work Phone: [facility] [place] 05-11-2024 14:45-0400 Heart rate 76 /min DO Ayanna Vicente Work Phone: [facility] [place] 05-11-2024 14:45-0400 SaO2% (BldA) [Mass fraction] 91 % DO Ayanna Vicente Work Phone: [facility] [place] 05-11-2024 14:45-0400 Systolic blood pressure 116 mm[Hg] DO Ayanna Vicente Work Phone: [facility] [place] 05-11-2024 13:41-0400 Body height 180.34 cm DO Ayanna Vicente Work Phone: [facility] [place] 05-11-2024 13:41-0400 Body weight 103.87 kg DO Ayanna Vicente Work Phone: [facility] [place] 04-05-2024 08:52-0400 Body height 180.34 cm [facility] 04-05-2024 08:52-0400 Body mass index (BMI) [Ratio] 32.3 kg/m2 [facility] [place] 04-05-2024 08:52-0400 Body temperature 97 [degF] [facility] 04-05-2024 08:52-0400 Body weight 105.23 kg [facility] 04-05-2024 08:52-0400 Diastolic blood pressure 62 mm[Hg] [facility] 04-05-2024 08:52-0400 Heart rate 87 /min [facility] 04-05-2024 08:52-0400 SaO2% (BldA) [Mass fraction] 90 % [facility] [place] 04-05-2024 08:52-0400 Systolic blood pressure 98 mm[Hg] [facility] 03-08-2024 14:43-0400 Body height 180.34 cm [facility] 03-08-2024 14:43-0400 Body mass index (BMI) [Ratio] 32.1 kg/m2 [facility] [place] 03-08-2024 14:43-0400 Body temperature 97 [degF] [facility] 03-08-2024 14:43-0400 Body weight 104.32 kg [facility] 03-08-2024 14:43-0400 Diastolic blood pressure 64 mm[Hg] [facility] 03-08-2024 14:43-0400 Heart rate 73 /min [facility] 03-08-2024 14:43-0400 SaO2% (BldA) [Mass fraction] 95 % [facility] [place] 03-08-2024 14:43-0400 Systolic blood pressure 98 mm[Hg] [facility] 02-24-2024 10:15-0400 Body temperature 97.88 [degF] SUSAN J[facility] 02-24-2024 10:15-0400 Diastolic blood pressure 42 mm[Hg] SUSAN JAX [facility] 02-24-2024 10:15-0400 Heart rate 68 /min SUSAN JAX [facility] 02-24-2024 10:15-0400 Respiratory rate 16 /min SUSAN JAX [facility] 02-24-2024 10:15-0400 Systolic blood pressure 106 mm[Hg] SUSAN JAX [facility] 02-05-2024 08:08-0400 Body height 180.34 cm [facility] 02-05-2024 08:08-0400 Body mass index (BMI) [Ratio] 32.3 kg/m2 [facility] 02-05-2024 08:08-0400 Body temperature 97.8 [degF] [facility] 02-05-2024 08:08-0400 Body weight 105.23 kg [facility] 02-05-2024 08:08-0400 Diastolic blood pressure 74 mm[Hg] [facility] 02-05-2024 08:08-0400 Heart rate 70 /min [facility] 02-05-2024 08:08-0400 Respiratory rate 18 /min [facility] 02-05-2024 08:08-0400 SaO2% (BldA) [Mass fraction] 98 % [facility] 02-05-2024 08:08-0400 Systolic blood pressure 122 mm[Hg] [facility] 01-12-2024 14:32-0400 Body height 180.34 cm DO Ayanna Vicente Work Phone: [facility] 01-12-2024 14:32-0400 Body mass index (BMI) [Ratio] 30.9 kg/m2 DO Ayanna Vicente Work Phone: [facility] [place] 01-12-2024 14:32-0400 Body temperature 98 [degF] DO Ayanna Vicente Work Phone: [facility] 01-12-2024 14:32-0400 Body weight 100.69 kg DO Ayanna Vicente Work Phone: [facility] 01-12-2024 14:32-0400 Heart rate 61 /min DO Ayanna Vicente Work Phone: [facility] [place] 01-12-2024 14:32-0400 Respiratory rate 18 /min DO Ayanna Vicente Work Phone: [facility] 01-12-2024 14:32-0400 SaO2% (BldA) [Mass fraction] 91 % DO Ayanna Vicente Work Phone: [facility] 10-21-2023 14:45-0400 Body height 180.34 cm DO Ayanna Ogabbi Work Phone: [facility] 10-21-2023 14:45-0400 Body mass index (BMI) [Ratio] 32.5 kg/m2 DO Ayanna Vicente Work Phone: [facility] 10-21-2023 14:45-0400 Body temperature 97.5 [degF] DO Ayanna Vicente Work Phone: [facility] 10-21-2023 14:45-0400 Body weight 105.68 kg DO Ayanna Vicente Work Phone: [facility] 10-21-2023 14:45-0400 Diastolic blood pressure 76 mm[Hg] DO Ayanna Vicente Work Phone: [facility] 10-21-2023 14:45-0400 Respiratory rate 18 /min DO Ayanna Vicente Work Phone: [facility] 10-21-2023 14:45-0400 SaO2% (BldA) [Mass fraction] 92 % DO Ayanna Vicente Work Phone: [facility] 10-21-2023 14:45-0400 Systolic blood pressure 118 mm[Hg] DO Ayanna Vicente Work Phone: [facility] 08-12-2023 14:20-0500 Body height 180.34 cm Homa Mckeon Other [facility] 08-12-2023 14:20-0500 Body mass index (BMI) [Ratio] 32.21 kg/m2 Homa Mckeon Other [facility] Other 08-12-2023 14:20-0500 Body weight 104.78 kg Homa Mckeon Other [facility] Other 08-12-2023 14:20-0500 Body weight 104.77 kg DO Ayanna Vicente Work Phone: [facility] 04-15-2023 14:40-0400 Body height 180.34 cm Ayanna Ogabbi Other [facility] Other 04-15-2023 14:40-0400 Body mass index (BMI) [Ratio] 33.61 kg/m2 Ayanna Sakina Other [employer] Other 04-15-2023 14:40-0400 Body temperature 98.8 [degF] Ayanna Sakina Other [employer] Other 04-15-2023 14:40-0400 Body weight 109.32 kg Ayanna Vicente Other [employer] Other 04-15-2023 14:40-0400 Diastolic blood pressure 82 mm[Hg] Ayanna Vicente Other [employer] Other 04-15-2023 14:40-0400 Respiratory rate 18 /min Ayanna Earleabbi Other [employer] Other 04-15-2023 14:40-0400 SaO2% (BldA) [Mass fraction] 93 % Ayanna Sakina Other [employer] Other 04-15-2023 14:40-0400 Systolic blood pressure 128 mm[Hg] Ayanna Sakina Other [employer] Other 02-25-2023 14:40-0400 Body height 180.34 cm Ayanna Vicente Other [employer] Other 02-25-2023 14:40-0400 Body mass index (BMI) [Ratio] 32.91 kg/m2 Ayanna Earleabbi Other [employer] Other 02-25-2023 14:40-0400 Body temperature 97.9 [degF] Ayanna Vicente Other [employer] Other 02-25-2023 14:40-0400 Body weight 107.05 kg Ayanna Vicente Other [employer] Other 02-25-2023 14:40-0400 Diastolic blood pressure 84 mm[Hg] Ayanna Vicente Other [employer] Other 02-25-2023 14:40-0400 Respiratory rate 18 /min Ayanna Vicente Other [employer] Other 02-25-2023 14:40-0400 SaO2% (BldA) [Mass fraction] 94 % Ayanna Vicente Other [employer] Other 02-25-2023 14:40-0400 Systolic blood pressure 122 mm[Hg] Ayanna Vicente Other [employer] Other 02-11-2023 11:35-0400 Blood Pressure Location SUSAN RANDOLPH [facility] 02-11-2023 11:35-0400 Diastolic blood pressure 67 mm[Hg] SUSAN JAX [facility] 02-11-2023 11:35-0400 Heart rate 70 /min SUSAN KHANRY [facility] 02-11-2023 11:35-0400 Systolic blood pressure 100 mm[Hg] SUSAN JAX [facility] 02-07-2023 13:28-0400 Body height 177.8 cm Santos Lares MD Work Phone: [facility] 02-07-2023 13:28-0400 Body temperature 97.3 [degF] Santos Lares MD Work Phone: [facility] 02-07-2023 13:28-0400 Body weight 107.96 kg Santos Lares MD Work Phone: [facility] 02-07-2023 13:28-0400 Diastolic blood pressure 72 mm[Hg] Santos Lares MD Work Phone: [facility] 02-07-2023 13:28-0400 Heart rate 74 /min Santos Lares MD Work Phone: [facility] 02-07-2023 13:28-0400 Respiratory rate 20 /min Santos Lares MD Work Phone: [facility] 02-07-2023 13:28-0400 SaO2% (BldA) [Mass fraction] 93 % Santos Lares MD Work Phone: [facility] 02-07-2023 13:28-0400 Systolic blood pressure 122 mm[Hg] Santos Lares MD Work Phone: [facility] 07-19-2022 12:17-0500 Body height 177.8 cm Santos Lares MD Work Phone: [facility] 07-19-2022 12:17-0500 Body temperature 98.01 [degF] Santos Lares MD Work Phone: [facility] 07-19-2022 12:17-0500 Body weight 105.6 kg Santos Lares MD Work Phone: [facility] 07-19-2022 12:17-0500 Diastolic blood pressure 71 mm[Hg] Santos Lares MD Work Phone: [facility] 07-19-2022 12:17-0500 Heart rate 72 /min Santos Lares MD Work Phone: [facility] 07-19-2022 12:17-0500 Respiratory rate 16 /min Santos Lares MD Work Phone: [facility] 07-19-2022 12:17-0500 SaO2% (BldA) [Mass fraction] 93 % Santos Lares MD Work Phone: [facility] 07-19-2022 12:17-0500 Systolic blood pressure 111 mm[Hg] Santos Lares MD Work Phone: [facility] 04-18-2022 11:58-0400 Body height 177.8 cm Santos Lares MD Work Phone: [facility] 04-18-2022 11:58-0400 Body temperature 97.81 [degF] Santos Lares MD Work Phone: [facility] 04-18-2022 11:58-0400 Body weight 102.69 kg Santos Lares MD Work Phone: [facility] 04-18-2022 11:58-0400 Diastolic blood pressure 68 mm[Hg] Santos Lares MD Work Phone: [facility] 04-18-2022 11:58-0400 Heart rate 70 /min Santos Lares MD Work Phone: [facility] 04-18-2022 11:58-0400 Respiratory rate 16 /min Santos Lares MD Work Phone: [facility] 04-18-2022 11:58-0400 SaO2% (BldA) [Mass fraction] 99 % Santos Lares MD Work Phone: [facility] 04-18-2022 11:58-0400 Systolic blood pressure 127 mm[Hg] Santos Lares MD Work Phone: [facility] 04-04-2022 10:59-0400 Body height 177.8 cm Santos Lares MD Work Phone: [facility] 04-04-2022 10:59-0400 Body temperature 97.11 [degF] Santos Lares MD Work Phone: [facility] 04-04-2022 10:59-0400 Body weight 103.78 kg Santos Lares MD Work Phone: [facility] 04-04-2022 10:59-0400 Diastolic blood pressure 73 mm[Hg] Santos Lares MD Work Phone: [facility] 04-04-2022 10:59-0400 Heart rate 68 /min Santos Lares MD Work Phone: [facility] 04-04-2022 10:59-0400 Respiratory rate 16 /min Santos Lares MD Work Phone: [facility] 04-04-2022 10:59-0400 SaO2% (BldA) [Mass fraction] 95 % Santos Lares MD Work Phone: [facility] 04-04-2022 10:59-0400 Systolic blood pressure 138 mm[Hg] Santos Lares MD Work Phone: [facility] 04-02-2022 14:20-0400 Body height 180.34 cm Ayanna Vicente Other [employer] Other 04-02-2022 14:20-0400 Body mass index (BMI) [Ratio] 31.73 kg/m2 Ayanna Vicente Other [employer] Other 04-02-2022 14:20-0400 Body temperature 97.2 [degF] Ayanna Vicente Other [employer] Other 04-02-2022 14:20-0400 Body weight 103.19 kg Ayanna Vicente Other [employer] Other 04-02-2022 14:20-0400 Diastolic blood pressure 76 mm[Hg] Ayanna Vicente Other [employer] Other 04-02-2022 14:20-0400 Respiratory rate 18 /min Ayanna Vicente Other [employer] Other 04-02-2022 14:20-0400 SaO2% (BldA) [Mass fraction] 96 % Ayanna Vicente Other [employer] Other 04-02-2022 14:20-0400 Systolic blood pressure 120 mm[Hg] Ayanna Vicente Other [employer] Other 02-06-2022 14:20-0400 Body height 180.34 cm Ayanna Vicente Other [employer] Other 02-06-2022 14:20-0400 Body mass index (BMI) [Ratio] 31.94 kg/m2 Ayanna Vicente Other [employer] Other 02-06-2022 14:20-0400 Body temperature 97.4 [degF] Ayanna Vicente Other [employer] Other 02-06-2022 14:20-0400 Body weight 103.87 kg Ayanna Vicente Other [employer] Other 02-06-2022 14:20-0400 Diastolic blood pressure 68 mm[Hg] Ayanna Vicente Other [employer] Other 02-06-2022 14:20-0400 Respiratory rate 18 /min Ayanna Vicente Other [employer] Other 02-06-2022 14:20-0400 SaO2% (BldA) [Mass fraction] 93 % Ayanna Vicente Other [employer] Other 02-06-2022 14:20-0400 Systolic blood pressure 114 mm[Hg] Ayanna Vicente Other [employer] Other 01-26-2022 05:00-0400 Body temperature 97.6 [degF] DO Ayanna Vicente Work Phone: [facility] 01-26-2022 05:00-0400 Diastolic blood pressure 77 mm[Hg] DO Ayanna Vicente Work Phone: [facility] 01-26-2022 05:00-0400 Heart rate 64 /min DO Ayanna Vicente Work Phone: [facility] 01-26-2022 05:00-0400 Respiratory rate 16 /min DO Ayanna Vicente Work Phone: [facility] 01-26-2022 05:00-0400 SaO2% (BldA) [Mass fraction] 94 % DO Ayanna Vicente Work Phone: [facility] 01-26-2022 05:00-0400 Systolic blood pressure 116 mm[Hg] DO Ayanna Vicente Work Phone: [facility] 01-23-2022 06:55-0400 Body height 177.8 cm DO Ayanna Vicente Work Phone: [facility] 01-20-2022 06:00-0400 Body weight 109.6 kg DO Ayanna Vicente Work Phone: [facility] 01-15-2022 17:00-0400 Body mass index (BMI) [Ratio] 33 kg/m2 DO Ayanna Vicente Work Phone: [facility] 01-15-2022 15:40-0400 Body temperature 97.9 [degF] DO Ayanna Vicente Work Phone: [facility] 01-15-2022 15:40-0400 Diastolic blood pressure 88 mm[Hg] DO Ayanna Vicente Work Phone: [facility] 01-15-2022 15:40-0400 Heart rate 72 /min DO Ayanna Vicente Work Phone: [facility] 01-15-2022 15:40-0400 Respiratory rate 18 /min DO Ayanna Vicente Work Phone: [facility] 01-15-2022 15:40-0400 SaO2% (BldA) [Mass fraction] 95 % DO Ayanna Vicente Work Phone: [facility] 01-15-2022 15:40-0400 Systolic blood pressure 128 mm[Hg] DO Ayanna Vicente Work Phone: [facility] 01-15-2022 05:11-0400 Body weight 107.9 kg DO Ayanna Vicente Work Phone: [facility] 01-13-2022 19:52-0400 Body height 177.8 cm DO Ayanna Vicente Work Phone: [facility] 01-13-2022 19:52-0400 Body mass index (BMI) [Ratio] 34.9 kg/m2 DO Ayanna Vicente Work Phone: [facility] 12-27-2021 11:10-0400 Body height 180.34 cm Ayanna Vicente Other [employer] [facility] Other 12-27-2021 11:10-0400 Body mass index (BMI) [Ratio] 33.12 kg/m2 Ayanna Sakina Other [employer] Other 12-27-2021 11:10-0400 Body temperature 97.3 [degF] Ayanna Vicente Other [employer] Other 12-27-2021 11:10-0400 Body weight 107.73 kg Ayanna Ogabbi Other [employer] Other 12-27-2021 11:10-0400 Diastolic blood pressure 82 mm[Hg] Ayanna Vicente Other [employer] Other 12-27-2021 11:10-0400 Respiratory rate 20 /min Ayanna Vicente Other [employer] Other 12-27-2021 11:10-0400 SaO2% (BldA) [Mass fraction] 93 % Ayanna Vicente Other [employer] Other 12-27-2021 11:10-0400 Systolic blood pressure 124 mm[Hg] Ayanna Vicente Other [employer] Other 12-17-2021 12:00-0400 Body height 180.34 cm Ayanna Clevelandnilton Other [employer] Other 12-17-2021 12:00-0400 Body mass index (BMI) [Ratio] 32.21 kg/m2 Ayanna Milner Other [employer] Other 12-17-2021 12:00-0400 Body weight 104.78 kg Ayanna Milner Other [employer] Other 12-17-2021 12:00-0400 Diastolic blood pressure 56 mm[Hg] Ayanna Clevelandnilton Other [employer] Other 12-17-2021 12:00-0400 Systolic blood pressure 98 mm[Hg] Ayanna Clevelandnilton Other [employer] Other 04-04-2021 14:20-0400 Body height 180.34 cm Ayanna Vicente Other [employer] Other 04-04-2021 14:20-0400 Body mass index (BMI) [Ratio] 32.35 kg/m2 Ayanna Vicente Other [employer] Other 04-04-2021 14:20-0400 Body temperature 97.7 [degF] Ayanna Vicente Other [employer] Other 04-04-2021 14:20-0400 Body weight 105.24 kg Ayanna Vicente Other [employer] Other 04-04-2021 14:20-0400 Diastolic blood pressure 70 mm[Hg] Ayanna Vicente Other [employer] Other 04-04-2021 14:20-0400 Respiratory rate 18 /min Ayanna Vicente Other [employer] Other 04-04-2021 14:20-0400 SaO2% (BldA) [Mass fraction] 97 % Ayanna Vicente Other [employer] Other 04-04-2021 14:20-0400 Systolic blood pressure 114 mm[Hg] Ayanna Vicente Other [employer] Other Encounters Encounter Date Encounter Type Care Provider Facility Start: 10-27-2025 ambulatory Sujey X Orzech Facilit y:[facility] Start: 03-07-2025 End: 03-07-2025 ambulatory Som Azul MD Facility: [facility] Start: 02-28-2025 End: 02-28-2025 ambulatory Som Azul MD Facility: [facility] Start: 02-21-2025 End: 02-21-2025 ambulatory Som Azul MD Facility: [facility] Start: 02-15-2025 End: 02-15-2025 ambulatory Ayanna Vicente DO Work Phone: [facility] Work Phone: Start: 02-15-2025 End: 02-15-2025 Patient encounter procedure Ayanna Vicente DO -[facility] [place] Work Phone: Start: 02-09-2025 Non-patient / Non-visit Cem Azul MD -[facility] Work Phone: Start: 02-08-2025 End: 02-08-2025 ambulatory SUSAN RANDOLPH Facility:[facility] Start: 02-08-2025 End: 02-08-2025 Patient encounter procedure SUSAN RANDOLPH [facility] Start: 01-27-2025 End: 01-27-2025 ambulatory Ayanna Vicente DO Work Phone: [facility] Work Phone: Start: 01-27-2025 End: 01-27-2025 Patient encounter procedure Lesli Arevalo MD -[facility] Work Phone: Start: 01-19-2025 End: 01-19-2025 Telephone encounter Moe H Itzkowitz DO Work Phone: [facility] Start: 01-19-2025 End: 01-19-2025 Patient encounter procedure Moe Itzkowitz DO -[facility] Work Phone: Start: 01-19-2025 End: 01-19-2025 ambulatory Ayanna Vicente DO Work Phone: [facility] Work Phone: Start: 01-17-2025 Non-patient / Non-visit Lesli Arevalo MD -[facility] Work Phone: Start: 01-17-2025 End: 01-17-2025 ambulatory Som Azul MD Facility:[facility] Start: 01-12-2025 End: 01-12-2025 Office outpatient visit 15 minutes Moe H Itzkowitz DO Work Phone: [facility] Comment on above: Diarrhea, unspecifie d type (Primary Dx) Start: 01-12-2025 End: 01-12-2025 ambulatory MOE H ITZKOWITZ Not Available Start: 12-27-2024 End: 12-27-2024 ambulatory Som Azul MD Facility:[facility] Start: 12-20-2024 End: 12-20-2024 ambulatory Som Azul MD Facility: [facility] Start: 12-17-2024 End: 12-17-2024 Patient encounter procedure Zohaib German MD Work Phone: Rheumatology Comment on above: Fibromyalgia (Primar y Dx); Primary osteoarthritis involving multiple joints; Type 2 diabetes mellitus without complication, with long-term current use of insulin (HCC); Long-term use of Plaquenil Start: 12-17-2024 End: 12-17-2024 ambulatory AYANNA VICENTE Facility:[facility] Start: 12-16-2024 End: 12-16-2024 ambulatory [facility] Work Phone: Start: 12-16-2024 End: 12-16-2024 Patient encounter procedure [facility] Work Phone: Start: 11-17-2024 End: 11-17-2024 Telephone encounter Chad Freitas MD Work Phone: [facility] Comment on above: Records faxed Start: 11-10-2024 End: 11-10-2024 ambulatory [facility] Work Phone: Start: 11-10-2024 End: 11-10-2024 Patient encounter procedure [facility] [employer] [facility] Work Phone: Start: 11-01-2024 Non-patient / Non-visit [facility] Work Phone: Start: 11-01-2024 End: 11-01-2024 ambulatory Som Azul MD Facility: [facility] Start: 10-11-2024 End: 10-11-2024 ambulatory Som Azul MD Facility: [facility] Start: 09-03-2024 End: 09-03-2024 ambulatory Ayanna Vicente Facility:[facility] Start: 09-03-2024 Non-patient / Non-visit Tad Ag DO Work Phone: [facility] Work Phone: Start: 08-16-2024 End: 08-16-2024 ambulatory SUSAN RANDOLPH Facility:[facility] Start: 08-16-2024 End: 08-16-2024 Patient encounter procedure SUSAN RANDOLPH [facility] [place] Start: 08-16-2024 End: 08-16-2024 ambulatory Som Azul MD Facility: [facility] Start: 08-11-2024 End: 08-11-2024 ambulatory Ayanna Vicente DO Work Phone: [facility] Work Phone: Start: 08-11-2024 End: 08-11-2024 Patient encounter procedure Ayanna Vicente DO Work Phone: [facility] [place] Work Phone: Start: 08-11-2024 Non-patient / Non-visit Ayanna Vicente DO Work Phone: [facility] Work Phone: Start: 08-10-2024 End: 08-10-2024 ambulatory Ayanna Vicente DO Work Phone: [facility] Work Phone: Start: 08-10-2024 End: 08-10-2024 Departed Referred Ayanna Vicente DO Work Phone: [facility] [place] Work Phone: Start: 08-09-2024 End: 08-09-2024 Office outpatient visit 15 minutes Esvin Dubon COPPING MACHINE OPERATOR Work Phone: [facility] Comment on above: Cognitive impairment (Primary Dx) Start: 08-09-2024 End: 08-09-2024 ambulatory ESVIN DUBON Not Available Start: 08-09-2024 End: 08-09-2024 Bamboo flowspieter Dubon COPPING MACHINE OPERATOR Work Phone: [facility] Start: 08-09-2024 End: 08-09-2024 Bamboo aparnaheet Esvinkamari Dubon COPPING MACHINE OPERATOR Work Phone: [facility] Start: 08-04-2024 End: 08-04-2024 ambulatory ESVINKamari DUBON Not Available Start: 07-26-2024 End: 07-26-2024 ambulatory Som Azul MD [facility] Start: 07-12-2024 End: 07-12-2024 ambulatory Som Azul MD Facility:[facility] Start: 06-28-2024 End: 06-28-2024 Bamboo flowspieter Hammonds PhD Work Phone: [facility] Start: 06-28-2024 End: 06-28-2024 Bamboo flowsheet Enrique Hammonds PhD Work Phone: [facility] Start: 06-28-2024 End: 06-28-2024 Patient encounter procedure Enrique Hammonds PhD Work Phone: [facility] Comment on above: Memory loss (Primary Dx); Concentration deficit; Word finding difficulty; Other chronic pain; Family history of dementia Start: 06-28-2024 End: 06-28-2024 ambulatory ENRIQUE HAMMONDS Not Available Start: 06-23-2024 End: 06-23-2024 ambulatory MOE H ITZKOWITZ Not Available Start: 06-23-2024 End: 06-23-2024 Office outpatient visit 15 minutes Moe H Itzkowitz DO Work Phone: [facility] Comment on above: Diarrhea, unspecifie d type (Primary Dx); Constipation, unspecified constipation type Start: 06-22-2024 End: 06-22-2024 Clinisync Result Encounter Babita Guillaume DO Work Phone: [facility] Department Unsolicited Start: 06-22-2024 End: 06-22-2024 Clinisync Result Encounter Babita Guillaume DO Work Phone: [facility] External Department Unsolicited Start: 06-22-2024 Non-patient / Non-visit Ayanna Vicente DO Work Phone: [facility] Work Phone: Start: 06-17-2024 End: 06-17-2024 Bamboo flowsheet Babita Tranett DO Work Phone: [facility] [address] Start: 06-17-2024 End: 06-17-2024 Bamboo flowsheet Babita Guillaume DO Work Phone: [facility] [address] Start: 06-17-2024 End: 06-17-2024 Office outpatient new 45 minutes Babita Guillaume DO Work Phone: [facility] [employer] [address] [address] Comment on above: Cognitive impairment (Primary Dx); Long-term use of high-risk medication Start: 06-17-2024 End: 06-17-2024 ambulatory BABITA GUILLAUME Not Available Start: 06-15-2024 Non-patient / Non-visit Ayanna Vicente DO Work Phone: [facility] Work Phone: Start: 06-15-2024 End: 06-15-2024 ambulatory Triervin Vasquez Marker Facility:[facility] Start: 06-15-2024 End: 06-15-2024 Departed Referred Ayanna Vicente DO Work Phone: [facility] [place] [facility] Start: 06-14-2024 End: 06-14-2024 ambulatory Som Azul MD Facility: [facility] Start: 06-08-2024 End: 06-08-2024 Chart abstracting Zohaib [facility] MD Work Phone: Rheumatology Start: 06-07-2024 End: 06-07-2024 ambulatory Som Azul MD Facility: [facility] Start: 05-26-2024 End: 05-26-2024 ambulatory AYANNA VICENTE Facility:[facility] Start: 05-26-2024 Non-patient / Non-visit Ayanna Vicente DO Work Phone: [facility] Work Phone: Start: 05-26-2024 End: 05-26-2024 Office outpatient visit 15 minutes Chad Freitas MD Work Phone: Hematology/Oncology Comment on above: CLL (chronic lymphoc ytic leukemia) (HCC) (Primary Dx) Start: 05-26-2024 End: 05-26-2024 Patient encounter procedure Ayanna Vicente DO Work Phone: [facility] Work Phone: Start: 05-26-2024 End: 05-26-2024 ambulatory Ayanna Vicente DO Work Phone: [facility] Work Phone: Start: 05-18-2024 End: 05-18-2024 Patient encounter procedure DO Ayanna Vicente Work Phone: [facility] Work Phone: Start: 05-18-2024 End: 05-18-2024 ambulatory DO Ayanna Vicente Work Phone: [facility] Work Phone: Start: 05-17-2024 End: 05-17-2024 ambulatory ZOHAIB GERMAN Facility:[facility] Start: 05-17-2024 End: 05-17-2024 Patient encounter procedure Zohaib [facility] MD Work Phone: Rheumatology Comment on above: 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); Fibromyalgia; Type 2 diabetes mellitus without complication, with long-term current use of insulin (HCC) Start: 05-12-2024 End: 05-12-2024 ambulatory DO Ayanna Vicente Work Phone: [facility] Work Phone: Start: 05-12-2024 End: 05-12-2024 Patient encounter procedure DO Ayanna Vicente Work Phone: [facility] Work Phone: Start: 05-11-2024 End: 05-11-2024 ambulatory DO Ayanna Vicente Work Phone: [facility] Work Phone: Start: 05-11-2024 End: 05-11-2024 Patient encounter procedure DO Ayanna Vicente Work Phone: [facility] Work Phone: Start: 05-06-2024 End: 05-06-2024 Patient encounter procedure DO Ayanna Vicente Work Phone: [facility] [place] Work Phone: Start: 05-06-2024 End: 05-06-2024 ambulatory DO Ayanna Vicente Work Phone: [facility] Work Phone: Start: 04-05-2024 End: 04-05-2024 ambulatory [facility] Work Phone: Start: 04-05-2024 End: 04-05-2024 Patient encounter procedure [facility] Work Phone: Start: 03-08-2024 End: 03-08-2024 ambulatory [facility] Work Phone: Start: 03-08-2024 End: 03-08-2024 Patient encounter procedure [facility] [place] Work Phone: Start: 02-24-2024 End: 02-24-2024 ambulatory SUSAN RANDOLPH Facility: [facility] Start: 02-24-2024 End: 02-24-2024 Patient encounter procedure SUSAN RANDOLPH [facility] Start: 02-05-2024 End: 02-05-2024 ambulatory [facility] Work Phone: Start: 02-05-2024 End: 02-05-2024 Patient encounter procedure [facility] [place] Work Phone: Start: 02-04-2024 Non-patient / Non-visit [facility] Work Phone: Start: 02-03-2024 End: 02-03-2024 ambulatory JAMES SMITH Not Available Start: 01-12-2024 End: 01-12-2024 ambulatory DO Ayanna Vicente Work Phone: [facility] Work Phone: Start: 01-12-2024 End: 01-12-2024 Patient encounter procedure DO Ayanna Vicente Work Phone: [facility] Work Phone: Start: 10-21-2023 End: 10-21-2023 ambulatory DO Ayanna Vciente Work Phone: [facility] Work Phone: Start: 10-21-2023 End: 10-21-2023 Patient encounter procedure DO Ayanna Vicente Work Phone: [facility] Work Phone: Start: 10-20-2023 Non-patient / Non-visit DO Aftab Vicente Work Phone: [facility] Work Phone: Start: 10-17-2023 End: 10-17-2023 ambulatory DO Ayanna Vicente Work Phone: [facility] Work Phone: Start: 10-17-2023 End: 10-17-2023 Patient encounter procedure DO Ayanna Vicente Work Phone: [facility] [place] Work Phone: Start: 10-16-2023 Non-patient / Non-visit DO Aftab id Sakina Work Phone: [facility] Work Phone: Start: 10-13-2023 Non-patient / Non-visit DO Aftab Vicente Work Phone: [facility] Work Phone: Start: 08-28-2023 Bamboo flowsheet James reis DPM Work Phone: [facility] Start: 08-28-2023 Bamboo flowsheet James reis DPM Work Phone: [facility] Start: 08-28-2023 End: 08-28-2023 Patient encounter procedure James Smith DPM Work Phone: [facility] Comment on above: Onychomycosis (Prima ry Dx); 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); Pain in both feet Start: 08-18-2023 End: 08-18-2023 ambulatory Homa Mckeon Other [facility] Other Start: 08-18-2023 Telephone encounter Homa BOUCHER Photographer Apprentice Start: 08-12-2023 End: 08-12-2023 ambulatory Homa Mckeon Other [facility] Other Start: 08-12-2023 Office outpatient ne w 45 minutes Homa Mckeon [facility] Start: 08-12-2023 End: 08-12-2023 Patient encounter procedure DO Ayanna Vicente Work Phone: [facility]- Start: 07-16-2023 End: 07-16-2023 ambulatory Ayanna Vicente Other [facility] [facility] Other Start: 07-16-2023 Telephone encounter Ayanna Vicente [facility] [place] Start: 05-12-2023 End: 05-12-2023 ambulatory Junior Butterfield Other [employer] Other Start: 05-12-2023 Telephone encounter Junior Butterfield [facility] Start: 05-07-2023 End: 05-07-2023 ambulatory Ayanna Vicente Other [employer] Other Start: 05-07-2023 Telephone encounter Ayanna Vicente [facility] [place] Start: 04-29-2023 End: 04-29-2023 ambulatory Ayanna Vicente Other [employer] Other Start: 04-29-2023 Telephone encounter Ayanna Vicente [facility] [place] Start: 04-25-2023 End: 04-25-2023 ambulatory Ayanna Vicente Other [employer] Other Start: 04-25-2023 Telephone encounter Ayanna Vicente [facility] [place] Start: 04-24-2023 End: 04-24-2023 ambulatory DO Ayanna Vicente Work Phone: [facility] Work Phone: Start: 04-24-2023 End: 04-24-2023 Patient encounter procedure DO Ayanna Vicente Work Phone: [facility] [place] Work Phone: Start: 04-22-2023 End: 04-22-2023 ambulatory Ayanna Vicente Other [employer] Other Start: 04-22-2023 Telephone encounter Ayanna Vicente [facility] [place] Start: 04-15-2023 End: 04-15-2023 ambulatory Ayanna Vicente Other [employer] Other Start: 04-15-2023 Office outpatient vi sit 25 minutes Ayanna Vicente [facility] [place] Start: 04-14-2023 End: 04-14-2023 ambulatory Ayanna Vicente Other [employer] Other Start: 04-14-2023 Telephone encounter [facility] Start: 04-09-2023 End: 04-09-2023 ambulatory DO Ayanna Vicente Work Phone: [facility] Work Phone: Start: 04-09-2023 End: 04-09-2023 Patient encounter procedure DO Ayanna Vicente Work Phone: [facility] [place] Work Phone: Start: 02-25-2023 End: 02-25-2023 ambulatory Ayanna Vicente Other [employer] Other Start: 02-25-2023 Office outpatient vi sit 15 minutes Ayanna Vicente [facility] Start: 02-11-2023 End: 02-11-2023 Patient encounter procedure SUSAN RANDOLPH [facility] Start: 02-07-2023 End: 02-07-2023 ambulatory Santos Lares MD Work Phone: Hematology/Oncology Comment on above: CLL (chronic lymphoc ytic leukemia) (HCC) (Primary Dx) Start: 02-07-2023 End: 02-07-2023 Patient encounter procedure Santos Lares MD Work Phone: [facility] Start: 01-16-2023 End: 01-16-2023 ambulatory Ayanna Vicente Other [employer] Other Start: 01-16-2023 Telephone encounter Ayanna Vicente [facility] Start: 01-15-2023 End: 01-15-2023 ambulatory Ayanna Vicente Other [employer] Other Start: 01-15-2023 Telephone encounter Ayanna Vicente [facility] Start: 01-07-2023 End: 01-07-2023 ambulatory Ayanna Vicente Other [employer] Other Start: 01-07-2023 Telephone encounter Ayanna Vicente [facility] [place] Start: 01-06-2023 End: 01-06-2023 ambulatory Ayanna Vicente Other [employer] Other Start: 01-06-2023 Telephone encounter Ayanna Vicente [facility] [place] Start: 11-29-[address] AYANNA VICENTE Facilit y:H1 Start: 10-16-2022 End: 10-16-2022 ambulatory Ayanna Vicente Other [employer] Other Start: 10-16-2022 Telephone encounter Ayanna Vicente [facility] [place] Start: 10-02-2022 End: 10-02-2022 ambulatory Ayanna Vicente Other [employer] Other Start: 10-02-2022 Telephone encounter Ayanna Vicente [facility] [place] Start: 09-30-2022 End: 09-30-2022 ambulatory DO Ayanna Vicente Work Phone: [facility] Work Phone: Start: 09-30-2022 End: 09-30-2022 Patient encounter procedure DO Ayanna Vicente Work Phone: [facility] [place] Work Phone: Start: 09-24-2022 End: 09-24-2022 ambulatory DO Ayanna Vicente Work Phone: [facility] Work Phone: Start: 09-24-2022 End: 09-24-2022 Patient encounter procedure DO Ayanna Vicente Work Phone: [facility]-MRI [address] Work Phone: Start: 09-02-2022 End: 09-02-2022 ambulatory Ayanna Vicente Other [employer] Other Start: 09-02-2022 Telephone encounter Ay[facility] Vic[facility] Start: 08-29-2022 End: 08-29-2022 ambulatory DO Ayanna Vicente Work Phone: [facility] Work Phone: Start: 08-29-2022 End: 08-29-2022 Patient encounter procedure DO Ayanna Vicente Work Phone: [facility] Work Phone: Start: 08-29-2022 End: 08-29-2022 Patient encounter procedure DO Ayanna Vicente Work Phone: [facility]-MRI [address] Work Phone: Start: 08-12-2022 End: 08-12-2022 ambulatory DO Ayanna Vicente Work Phone: [facility] Work Phone: Start: 08-12-2022 End: 08-12-2022 Patient encounter procedure DO Ayanna Vicente Work Phone: [facility]-ay [facility] Work Phone: Start: 08-05-2022 End: 08-05-2022 ambulatory Ayanna Vicente Other [employer] Other Start: 08-05-2022 Telephone encounter Ayanna Vicente [facility] Start: 08-02-2022 ambulatory Ayanna Vicente Faci [id number] Start: 07-24-2022 End: 07-24-2022 ambulatory DO Ayanna Vicente Work Phone: [facility] Work Phone: Start: 07-24-2022 End: 07-24-2022 Patient encounter procedure DO Ayanna Vicente Work Phone: [facility]-Electrodiagnostics Work Phone: Start: 07-19-2022 Telephone encounter Santos justice MD Work Phone: [facility] Comment on above: Referral Information (ENT) Start: 07-19-2022 End: 07-19-2022 ambulatory Santos Lares MD Work Phone: Hematology/Oncology Comment on above: CLL (chronic lymphoc ytic leukemia) (HCC) (Primary Dx); Right ear pain; Rib pain; Axillary adenopathy; Other signs and symptoms in breast ; Encounter for screening mammogram for malignant neoplasm of breast Start: 07-19-2022 End: 07-19-2022 Patient encounter procedure Santos Lares MD Work Phone: [facility] Start: 05-31-2022 End: 05-31-2022 ambulatory Ayanna Vicente Other [employer] Other Start: 05-31-2022 Telephone encounter Ayanna Vicente [facility] Start: 05-14-2022 End: 05-14-2022 ambulatory Ayanna Vicente Other [employer] Other Start: 05-14-2022 Telephone encounter Ayanna Vicente [facility] Start: 04-24-2022 End: 04-24-2022 ambulatory Ayanna Vicente Other [employer] Other Start: 04-24-2022 Telephone encounter Ayanna Vicente [facility] Start: 04-23-2022 Telephone encounter Ayanna Vicente [facility] Start: 04-23-2022 End: 04-23-2022 ambulatory DO Ayanna Vicente Work Phone: [employer] Other Start: 04-23-2022 End: 04-23-2022 Patient encounter procedure DO Ayanna Vicente Work Phone: [facility] [place] Start: 04-18-2022 End: 04-18-2022 ambulatory Santos Lares MD Work Phone: Hematology/Oncology Comment on above: CLL (chronic lymphoc ytic leukemia) (HCC) (Primary Dx) Start: 04-18-2022 End: 04-18-2022 Patient encounter procedure Santos Lares MD Work Phone: [place] Start: 04-10-2022 End: 04-10-2022 ambulatory Ayanna Vicente Other [employer] Other Start: 04-10-2022 Telephone encounter Ayanna Vicente [facility] Start: 04-05-2022 Telephone encounter Niurka Erwin Hemat[facility]/Oncology Comment on above: Care Coordination (R esults) Start: 04-04-2022 End: 04-04-2022 ambulatory Santos Lares MD Work Phone: Hematology/Oncology Comment on above: Lymphocytosis (Prima ry Dx) Start: 04-04-2022 End: 04-04-2022 Patient encounter procedure Santos Lares MD Work Phone: [place] Start: 04-02-2022 End: 04-02-2022 ambulatory Ayanna Vicente Other [employer] Other Start: 04-02-2022 Office outpatient vi sit 40 minutes Ayanna Vicente [facility] Start: 04-01-2022 End: 04-01-2022 Patient encounter procedure DO Ayanna Vicente Work Phone: [facility] [place] Start: 03-26-2022 End: 03-26-2022 ambulatory Ayanna Vicente Other [employer] Other Start: 03-26-2022 Telephone encounter Ayanna Vicente [facility] Start: 03-19-2022 End: 03-19-2022 ambulatory Ayanna Vicente Other [employer] Other Start: 03-19-2022 Telephone encounter Ayanna Vicente [facility] Start: 03-13-2022 End: 03-13-2022 ambulatory Ayanna Vicente Other [employer] Other Start: 03-13-2022 Telephone encounter Ayanna Vicente [facility] [place] Start: 03-08-2022 End: 03-08-2022 ambulatory Ayanna Vicente Other [employer] Other Start: 03-08-2022 Telephone encounter Ayanna Earleabbi [facility] [place] Start: 03-07-2022 End: 03-07-2022 ambulatory Ayanna Vicente Other [employer] Other Start: 03-07-2022 Telephone encounter Ayanna Vicente [facility] [place] Start: 02-28-2022 End: 02-28-2022 ambulatory Ayanna Vicente Other [employer] Other Start: 02-28-2022 Telephone encounter Ayanna Vicente [facility] [place] Start: 02-21-2022 End: 02-21-2022 ambulatory Ayanna Vicente Other [employer] Other Start: 02-21-2022 Telephone encounter Ayanna Vicente [facility] [place] Start: 02-18-2022 End: 02-18-2022 ambulatory Ayanna Vicente Other [employer] Other Start: 02-18-2022 Telephone encounter Ayanna Sakina [facility] [place] Start: 02-15-2022 End: 02-15-2022 ambulatory Ayanna Vicente Other [employer] Other Start: 02-15-2022 Telephone encounter Ayanna Vicente [facility] [place] Start: 02-11-2022 End: 02-11-2022 ambulatory Ayanna Vicente Other [employer] Other Start: 02-11-2022 Telephone encounter Ayanna Vicente [facility] [place] Start: 02-06-2022 End: 02-06-2022 ambulatory Ayanna Vicente Other [employer] Other Start: 02-06-2022 Office outpatient vi sit 25 minutes Ayanna Sakina [facility] [place] Start: 01-31-2022 End: 01-31-2022 ambulatory Ayanna Vicente Other [employer] Other Start: 01-31-2022 Telephone encounter Ayanna Vicente [facility] [place] Start: 01-15-2022 End: 01-26-2022 Evaluation and management of inpatient DO Ayanna Vicente Work Phone: [facility] [place] [facility] Start: 01-13-2022 End: 01-15-2022 Evaluation and management of inpatient DO Ayanna Vicente Work Phone: [facility] [place] [facility] Start: 01-07-2022 End: 01-07-2022 ambulatory Ayanna Vicente Other [employer] Other Start: 01-07-2022 Telephone encounter Ayanna Vicente [facility] [place] Start: 12-27-2021 End: 12-27-2021 ambulatory Ayanna Vicente Other [employer] Other Start: 12-27-2021 Office outpatient vi sit 15 minutes Ayanna Ogabbi [facility] [place] Start: 12-19-2021 End: 12-19-2021 ambulatory Ayanna Vicente Other [employer] Other Start: 12-19-2021 Telephone encounter Ayanna Vicente [facility] [place] Start: 12-18-2021 End: 12-18-2021 ambulatory Ayanna Milner Other [employer] Other Start: 12-18-2021 Telephone encounter Ayanna Milner [facility] Start: 12-17-2021 End: 12-17-2021 ambulatory Ayanna Milner Other [employer] Other Start: 12-17-2021 Office outpatient ne w 45 minutes Ayanna Milner [facility] Start: 11-12-2021 End: 11-12-2021 ambulatory Ayanna Vicente Other [employer] Other Start: 11-12-2021 Telephone encounter Ayanna Vicente [facility] [place] Start: 10-02-2021 End: 10-02-2021 ambulatory Ayanna Vicente Other [employer] Other Start: 10-02-2021 Telephone encounter Ayanna Vicente [facility] [place] Start: 10-01-2021 End: 10-01-2021 ambulatory Ayanna Vicente Other [employer] Other Start: 10-01-2021 Telephone encounter Ayanna Vicente [facility] [place] Start: 09-17-2021 End: 09-17-2021 ambulatory Ayanna Vicente Other [employer] Other Start: 09-17-2021 Telephone encounter Ayanna Vicente [facility] [place] Start: 09-13-2021 End: 09-13-2021 ambulatory Ayanna Vicente Other [employer] Other Start: 09-13-2021 Telephone encounter Ayanna Vicente [facility] [place] Start: 09-12-2021 End: 09-12-2021 ambulatory Ayanna Vicente Other [employer] Other Start: 09-12-2021 Telephone encounter Ayanna Vicente [facility] [place] Start: 07-18-2021 End: 07-18-2021 ambulatory Ayanna Vicente Other [employer] Other Start: 07-18-2021 Telephone encounter Ayanna Vicente [facility] [place] Start: 06-18-2021 End: 06-18-2021 ambulatory Ayanna Vicente Other [place] Other Start: 06-18-2021 Telephone encounter Ay[facility] Vic[facility] Start: 04-24-2021 [facility] Start: 04-04-2021 Office outpatient vi sit 25 minutes Ayanna Vicente [facility] Start: 02-08-2021 End: 02-08-2021 Orders Only Dale [...] Phone: Colonoscopy SUSAN RANDOLPH Extraction of cataract SUKMUAR RANDOLPH History of hernia repair HEATHER RANDOLPH SARS Antigen (LFIA) DO Ayanna Vicente Work Phone: Urine culture DO Ayanna Young [facility] Work Phone: Plan of Treatment Date Care Activity Detail Author Start: 01-14-2032 Urine microalbumin profile DTaP,Tdap,Td Vaccine (2 - Td or Tdap) [facility] Start: 05-26-2027 Diabetes Screening Diabetes Screenin [facility] Start: 08-08-2026 Diabetes Screening Diabetes Screenin g [facility] Start: 02-07-2026 DIABETES SCREEN DIABETES SCREEN [facility] Start: 12-19-2025 End: 12-19-2025 Patient encounter procedure 12/19/2025 11:00 AM EDT Office Visit Rheumatology [id number] [place], [place] [id number] [place] [id number] [facility] [place] [address] Return in about 1 year (around 12/17/2025). Rheumatology Comment on above: Return in about 1 ye ar (around 12/17/2025). Start: 07-19-2025 DIABETES SCREEN DIABETES SCREEN [facility] Start: 03-14-2025 Influenza vaccination Influenza Vacc ine (#1) [facility] Start: 01-28-2025 End: 01-28-2025 Patient encounter procedure 01/28/2025 10:30 AM EDT Office Visit [facility] [address] [facility] [facility] [address] [place] [id number] Moe Betts DO [address] [facility] [address] [place] [address] [facility] Start: 11-25-2024 End: 11-25-2024 Patient encounter procedure 11/25/2024 11:20 AM EDT Office Visit [facility] [address] [facility] [place] [address] [place] [id number] [facility] [place] [address] 6 month follow up Rheumatology Comment on above: 6 month follow up Start: 11-24-2024 End: 11-24-2024 Follow-up encounter 11/24/2024 10:30 AM EDT Visit (SP) Office Hematology/Oncology [address] [place] [address] [place] [address] Chad Freitas MD [address] [facility] [place] [address] 6 month follow up Hematology/Oncology Comment on above: 6 month follow up Start: 11-24-2024 End: 11-24-2024 Patient encounter procedure 11/24/2024 10:15 AM EDT Office Visit [facility] [address] [place], [place] [address] [address] 6 month follow up [facility] Comment on above: 6 month follow up Start: 11-15-2024 End: 11-15-2024 Patient encounter procedure 11/15/2024 11:00 AM EDT Office Visit Rheumatology [id number] [facility] [place] [address] [place] [id number] [facility] [place] [address] 6 month follow up Rheumatology Comment on above: 6 month follow up Start: 11-10-2024 Patient referral [facility] Work Phone: Start: 09-16-2024 Covid-19 Vaccine ( season) Covid-19 Vaccine ( season) [facility] Start: 09-03-2024 Urine culture [facility] Start: 08-10-2024 Bacteria identified in Urine by Culture Urine Culture [facility] Start: 08-10-2024 End: 08-10-2024 Urine culture [facility] Start: 08-09-2024 End: 08-09-2024 Patient encounter procedure [facility] [address] Comment on above: Arrived Start: 08-04-2024 End: 08-04-2024 Patient encounter procedure 08/04/2024 11:30 AM EST [facility] [address] [facility] [address] [place] [phone] [facility] Start: 07-14-2024 Advance Directive Discussion Advance Directive Discussion [facility] Start: 06-28-2024 End: 06-28-2024 Patient [address] [facility] Comment on above: Cognitive impairment Start: 06-23-2024 End: 06-23-2024 Patient encounter procedure 06/23/2024 2:30 PM EST Consult [facility] [address] [facility] [address] [place] [id number] Moe Betts DO [address] [facility] [address] [place] [address] [facility] Start: 06-17-2024 End: 06-17-2025 Cobalamin (Vitamin B12) [Mass/volume] in Serum or Plasma Vitamin B12 Lab Routine Cognitive impairment Long-term use of high-risk medication Expected: 06/17/2024 (Approximate), Expires: 06/17/2025 [facility] Work Phone: Comment on above: Expected: 06/17/2024 (Approximate), Expires: 06/17/2025 Start: 06-17-2024 End: 06-17-2024 Patient encounter procedure 06/17/2024 2:00 PM EST Office Visit [facility] [address] [place] [phone] Babita Guillaume, [address] [place], [place] [address] Arrived [facility] Comment on above: Arrived Start: 06-17-2024 End: 06-17-2025 Thyrotropin [Units/volume] in Serum or Plasma TSH Lab Routine Cognitive impairment Long-term use of high-risk medication Expected: 06/17/2024 (Approximate), Expires: 06/17/2025 [facility] Comment on above: Expected: 06/17/2024 (Approximate), Expires: 06/17/2025 Start: 05-11-2024 Patient referral [facility] Work Phone: Start: 05-06-2024 Bacteria identified in Urine by Culture Urine Culture [facility] Start: 04-05-2024 Patient referral [facility] Work Phone: Start: 02-05-2024 Patient referral [facility] Work Phone: Start: 11-17-2023 End: 11-17-2023 Patient encounter procedure 11/17/2023 1:15 PM EDT Procedure Visit [facility] [address] [place] [address] Nordheim, James S, DPM [address] [place] [address] [facility] Start: 10-17-2023 Bacteria identified in Urine by Culture [facility] Start: 08-18-2023 Shingrix Vaccine (2 of 2) Rodriguez grix Vaccine (2 of 2) [facility] Start: 08-10-2023 End: 10-10-2023 CBC W Auto Differential panel - Blood CBC + DIFF Lab Routine CLL (chronic lymphocytic leukemia) ([facility]) Expected: 08/10/2023 (Approximate), Expires: 10/10/2023 [facility] Work Phone: Comment on above: Expected: 08/10/2023 (Approximate), Expires: 10/10/2023 Start: 08-10-2023 End: 10-10-2023 Comprehensive metabolic 2000 panel - Serum or Plasma COMP METABOLIC PANEL Lab Routine CLL (chronic lymphocytic leukemia) ([facility]) Expected: 08/10/2023 (Approximate), Expires: 10/10/2023 [facility] Work Phone: Comment on above: Expected: 08/10/2023 (Approximate), Expires: 10/10/2023 Start: 07-14-2023 Advance Directive Discussion Advance Directive Discussion [facility] Start: 03-14-2023 Influenza vaccination C [facility] Start: 01-16-2023 End: 03-18-2023 CBC W Auto Differential panel - Blood CBC + DIFF Lab Routine CLL (chronic lymphocytic leukemia) ([facility]) Expected: 01/16/2023 (Approximate), Expires: 03/18/2023 [facility] Work Phone: Comment on above: Expected: 01/16/2023 (Approximate), Expires: 03/18/2023 Start: 01-16-2023 End: 03-18-2023 Comprehensive metabolic 2000 panel - Serum or Plasma COMP METABOLIC PANEL Lab Routine CLL (chronic lymphocytic leukemia) ([facility]) Expected: 01/16/2023 (Approximate), Expires: 03/18/2023 [facility] Work Phone: Comment on above: Expected: 01/16/2023 (Approximate), Expires: 03/18/2023 Start: 08-19-2022 COVID-19 VACCINE (5 - Pfizer series) COVID-19 VACCINE (5 - Pfizer series) [facility] Start: 07-26-2022 End: 08-18-2023 Us breast uni real time with image limited US BREAST LTD LT Radiology Routine Axillary adenopathy Other signs and symptoms in breast Expected: 07/26/2022, Expires: 08/18/2023 [facility] Work Phone: Comment on above: Expected: 07/26/2022 , Expires: 08/18/2023 Start: 07-19-2022 End: 09-18-2022 CBC W Auto Differential panel - Blood CBC + DIFF Lab Routine CLL (chronic lymphocytic leukemia) ([facility]) Expected: 07/19/2022 (Approximate), Expires: 09/18/2022 [facility] Work Phone: Comment on above: Expected: 07/19/2022 (Approximate), Expires: 09/18/2022 Start: 07-19-2022 End: 09-18-2022 Comprehensive metabolic 2000 panel - Serum or Plasma COMP METABOLIC PANEL Lab Routine CLL (chronic lymphocytic leukemia) (HCC) Expected: 07/19/2022 (Approximate), Expires: 09/18/2022 [facility] Work Phone: Comment on above: Expected: 07/19/2022 (Approximate), Expires: 09/18/2022 Start: 07-19-2022 End: 09-18-2022 Lactate dehydrogenase [Enzymatic activity/volume] in Serum or Plasma LD LACTATE DEHYDRO Lab Routine CLL (chronic lymphocytic leukemia) (HCC) Expected: 07/19/2022 (Approximate), Expires: 09/18/2022 [facility] Work Phone: Comment on above: Expected: 07/19/2022 (Approximate), Expires: 09/18/2022 Start: 07-14-2022 ADVANCE DIRECTIVE DISCUSSION ADVANCE DIRECTIVE DISCUSSION [facility] Start: 07-14-2022 DEPRESSION ASSESSMENT DEPRESSION ASS ESSMENT [facility] Start: 04-04-2022 End: 06-04-2022 [id number] [Mass/volume] in Serum or Plasma [facility] Work Phone: Comment on above: Expected: 04/04/2022 , Expires: 06/04/2022 Start: 04-04-2022 End: 06-04-2022 Chronic hepatitis differentiation between hepatitis B and C virus panel - Serum or Plasma [facility] Work Phone: Comment on above: Expected: 04/04/2022 , Expires: 06/04/2022 Start: 04-04-2022 End: 06-04-2022 FLOW CYTOMETRY PERIPHERAL BLOOD LEUK/LYMPH (FCLEUK) [facility] Work Phone: Comment on above: Expected: 04/04/2022 , Expires: 06/04/2022 Start: 03-14-2022 Influenza vaccination INFLUENZA (#1) [facility] Start: 01-24-2022 [facility] Start: 01-21-2022 Consultation [facility] Start: 01-15-2022 Hospital admission [facility] Start: 01-15-2022 Referral to clinical worship director [facility] Start: 01-15-2022 [facility] Work Phone: Start: 01-13-2022 Hospital admission [facility] Work Phone: Start: 07-27-2021 COVID-19 VACCINE (4 - Booster for Pfizer series) COVID-19 VACCINE (4 - Booster for Pfizer series) [facility] Start: 07-14-2021 ADVANCE DIRECTIVE DISCUSSION ADVANCE DIRECTIVE DISCUSSION [facility] Start: 07-14-2021 DEPRESSION ASSESSMENT DEPRESSION ASS ESSMENT [facility] Start: 03-14-2021 Influenza vaccination INFLUENZA (#1) [facility] Start: 2007 ADVANCE DIRECTIVE DISCUSSION ADVANCE DIRECTIVE DISCUSSION [facility] Start: 2007 BONE DENSITY BONE DENSITY [facility] Start: 2007 PNEUMOCOCCAL: 65+ (1 - PCV) PNEUMOCOCCAL: 65+ (1 - PCV) [facility] Start: 2007 PNEUMOVAX AGE 65 AND OVER WITH 5YR LOOKBACK (#1) PNEUMOVAX AGE 65 AND OVER WITH 5YR LOOKBACK (#1) [facility] Start: 2007 Screening for osteoporosis Bone Density Screening [facility] Start: 1992 Screening for malign ant neoplasm of colon [facility] Start: 1992 SHINGRIX VACCINE (1 of 2) RODRIGUEZ GRIX VACCINE (1 of 2) [facility] Start: 1987 DIABETES SCREEN DIABETES SCREEN [facility] Start: 1961 SHINGRIX VACCINE (1 of 2) RODRIGUEZ GRIX VACCINE (1 of 2) [facility] Start: 1961 Urine microalbumin profile DTAP,TDAP,TD (1 - Tdap) [facility] Start: 1960 Anxiety Screening Anxiety Screening [facility] Start: 1960 Depression Screening Depression Scre ening [facility] Start: 1960 Hepatitis B surface antibody level LDL Cholesterol [facility] Start: 1960 HEPATITIS C SCREENING HEPATITIS C SC [facility] Start: 1954 Adult depression screening assessment DEPRESSION SCREENING [facility] Start: 1954 COVID-19 VACCINE (1) COVID-19 VACCIN E (1) [facility] Start: 1952 Diabetic foot examination Diabetic F oot Exam [facility] Start: 1952 Glaucoma screening Dilated Retinal E xam [facility] Start: 1952 Hepatitis B screening Urine Albumin:Creatinine Ratio [facility] Start: 1948 PNEUMOCOCCAL: 65+ (1 - PCV) PNEUMOCOCCAL: 65+ (1 - PCV) [facility] Start: 1947 Hemoglobin A1c measurement HbA1C [facility] Bacteria identified in Urine by Culture [facility] CBC W Auto Different ial panel - Blood CBC + DIFF Lab Routine Lymphocytosis 04/04/2022 11:00 AM EDT [facility] Work Phone: CBC W Auto Different ial panel - Blood COMPLETE BLOOD COUNT AND DIFFERENTIAL Lab Routine CLL (chronic lymphocytic leukemia) (HCC) 05/26/2024 2:20 PM EST [facility] Work Phone: Comprehensive metabo lic 1999 panel - Serum or Plasma [facility] Comprehensive metabo lic 1999 panel - Serum or Plasma [facility] Comprehensive metabo lic 1999 panel - Serum or Plasma [facility] FLOW CYTOMETRY PERIP HERAL BLOOD LEUK/LYMPH (FCLEUK) FLOW CYTOMETRY PERIPHERAL BLOOD LEUK/LYMPH (FCLEUK) Lab Routine Lymphocytosis 04/04/2022 11:02 AM [facility] Work Phone: FLOW SLIDE FLOW SLIDE Lab R outine Lymphocytosis 04/04/2022 11:02 AM [facility] Work Phone: Glucose measurement estimated from glycated hemoglobin [facility] Hepatitis B virus co re Ab [Presence] in Serum HEP B CORE AB TOTAL Lab Routine Lymphocytosis 04/04/2022 11:00 AM [facility] Work Phone: Hepatitis B virus noe rface Ab [Presence] in Serum HEP B SURF AB QUAL Lab Routine Lymphocytosis 04/04/2022 11:00 AM [facility] Work Phone: Hepatitis B virus noe rface Ab [Presence] in Serum by Immunoassay HEP B SURF AG SCRN Lab Routine Lymphocytosis 04/04/2022 11:00 AM [facility] Work Phone: Hepatitis C virus Ab [Presence] in Serum HEP C AB IA W/CONF SCRN Lab Routine Lymphocytosis 04/04/2022 11:00 AM [facility] Work Phone: End: 08-18-2023 SONYA SCREENING W NEYDA SONYA SCREENING W NEYDA Radiology Routine Encounter for screening mammogram for malignant neoplasm of breast 1 Occurrences starting 07/19/2022 until 08/18/2023 [facility] Work Phone: Comment on above: 1 Occurrences starti ng 07/19/2022 until 08/18/2023 MG Breast - bilatera l Screening [facility] MG Breast - bilatera l Screening [facility] Patient Education Wrist Fracture (DC) [facility] Work Phone: Patient referral [facility] Work Phone: End: 03-10-2022 Radiologic exam knee complete 4/more views XR KNEE GENERAL 4V AP BOTH/PA BOTH/LAT/MERC BILAT Radiology Routine Pain in both knees, unspecified chronicity 1 Occurrences starting 02/08/2021 until 03/10/2022 [facility] Comment on above: 1 Occurrences starti ng 02/08/2021 until 03/10/2022 End: 03-10-2022 Radiologic examination pelvis 1/2 views XR PELVIS 1V AP Radiology Routine Pain in both knees, unspecified chronicity 1 Occurrences starting 02/08/2021 until 03/10/2022 [facility] Comment on above: 1 Occurrences starti ng 02/08/2021 until 03/10/2022 Renal function 1999 panel - Serum or Plasma [facility] Renal function 1999 panel - Serum or Plasma [facility] Serum fructosamine measurement [facility] Work Phone: Urine culture [facility] Urine culture [facility] US Kidney - bilateral [facility] XR Hip - left 2 Views [facility] XR Knee - left 4 Views [facility] End: 08-18-2023 XR RIBS/CHEST 3V AP RIB/OBLS/CXR LEFT XR RIBS/CHEST 3V AP RIB/OBLS/CXR LEFT Radiology Routine Rib pain 1 Occurrences starting 07/19/2022 until 08/18/2023 [facility] Work Phone: Comment on above: 1 Occurrences starti ng 07/19/2022 until 08/18/2023 [facility] Immunizations Immunization Date Immunization Notes Care Provider Astrid [email or web address] 03-19-2024 COVID-19 (PFIZER) 12Y and older Ayanna Vicente DO Work Phone: [facility] 03-19-2024 influenza virus vaccine, unspecified formulation SUSAN RANDOLPH [facility] 03-19-2024 influenza, high dose seasonal, preservative-free Ayanna Vicente DO Work Phone: [facility] 06-23-2023 COVID-19 (PFIZER) 12Y and older [facility] 06-23-2023 Pneumococcal Conjuga te Vaccine, 20 valent [facility] 06-23-2023 RSV, preF3, adj, pf [facility] 06-23-2023 zoster vaccine recombinant [facility] 04-15-2023 influenza, high dose seasonal, preservative-free Ayanna Vicente Other [employer] [facility] Other 04-15-2023 Fluzone QIV High-Dos e 65YR+ [facility] 04-15-2023 influenza virus vaccine, unspecified formulation James Smith DPM Work Phone: [facility] 04-22-2022 pneumococcal polysaccharide vaccine, 23 valent Ayanna Vicente Other [facility] 04-18-2022 COVID-19 mRNA Bivale nt Booster (Pfizer) [facility] 01-13-2022 tetanus toxoid, redu paola diphtheria toxoid, and acellular pertussis vaccine, adsorbed Ayanna Vicente Other [facility] 06-01-2021 COVID-19 Vaccine Pfi zer - Documentation Purposes Only Ayanna Vicente Other [facility] 04-25-2021 influenza virus vaccine, unspecified formulation SUSAN RANDOLPH [facility] 04-04-2021 influenza, high dose seasonal, preservative-free Ayanna Vicente Other [employer] Other 04-04-2021 influenza virus vaccine, unspecified formulation DO Ayanna Vicente Work Phone: [facility] 04-04-2021 Influenza, High-dose Seasonal, Quadrivalent, Preservative Free James Smith DPM Work Phone: [facility] 09-01-2020 COVID-19 Vaccine Pfi zer - Documentation Purposes Only Ayanna Vicente Other [facility] 09-01-2020 SARS-CoV-2 (COVID-19 ) mRNA-1273 vaccine SUSAN RANDOLPH [facility] 08-11-2020 COVID-19 Vaccine Pfi zer - Documentation Purposes Only Ayanna Vicente Other [facility] 08-11-2020 SARS-CoV-2 (COVID-19 ) mRNA-1273 vaccine SUSAN RANDOLPH [facility] 03-14-2020 influenza virus vaccine, unspecified formulation SUSAN RANDOLPH [facility] 07-14-2019 pneumococcal conjuga te vaccine, 13 valent [facility] 04-03-2019 influenza virus vaccine, unspecified formulation SUSAN RANDOLPH [facility] 04-03-2019 Seasonal trivalent influenza vaccine, adjuvanted, preservative free [facility] 04-03-2019 pneumococcal polysaccharide vaccine, 23 valent Ayanna Vicente Other [facility] 04-03-2019 influenza, seasonal, injectable Ayanna Vicente Other [facility] 05-25-2018 influenza virus vaccine, unspecified formulation SUSAN RANDOLPH [facility] 05-25-2018 Influenza, injectabl e, Madin Anjelica Canine Kidney, preservative free, quadrivalent [facility] 05-25-2018 influenza, seasonal, injectable Ayanna Vicente Other [facility] 04-22-2018 Kenalog -40 mg Ayanna Vicente Other [employer] Other Payers Date Payer Category Payer Self-pay [id number] 2022 Unknown [id number] 2020 Private Health Insurance [facility] AARP SUPPLEMENT [id number] 2020-Present Indemnity [id number] 2020 Private Health Insurance [id number] 2007 Medicare MEDICARE MEDICAR E A AND B [id number] 2007-Present [place] Medicare [id number] 2007 Medicare [id number] [id number] .[id number] 1959 Medicare [id number] 2.16.840.1.295560.19 1959 Unknown [id number] 2.16.840.1.377346.19 1942 Unknown [id number] 2.16.840.1.115623.3.579.2 .356 1942 Unknown [id number] 2.16.840.1.064754.3.579.2 .593 1942 Unknown [id number] 2.16.840.1.819988.3.579.2 .1259 1942 Unknown [id number] 2.16.840.1.729596.3.579.2 .1259 1942 Unknown [id number] 2.16.840.1.639856.3.579.2 .1259 1942 Unknown [id number] 2.16.840.1.890910.3.579.2 .1259 1942 Unknown [id number] 2.16.840.1.337722.3.579.2 .1259 1942 Unknown [id number] 2.16.840.1.683601.3.579.2 .1259 1942 Unknown [id number] 2.16.840.1.677456.3.579.2 .1259 1942 Unknown [id number] 2.16.840.1.050087.3.579.2 .727 1942 Unknown [id number] 2.16.840.1.818053.3.579.2 .727 1942 Unknown [id number] 2.16.840.1.182360.3.579.2 .727 1942 Unknown [id number] 2.16.840.1.574688.3.579.2 .727 1942 Unknown [id number] 2.16.840.1.449729.3.579.2 .196 1942 Unknown [id number] 2.16.840.1.597938.3.579.2 .196 1942 Unknown [id number] 2.16.840.1.997724.3.579.2 .196 1942 Unknown [id number] 2.16.840.1.783933.3.579.2 .196 1942 Unknown [id number] 2.16.840.1.499036.3.579.2 .196 1942 Unknown [id number] 2.16.840.1.536905.3.579.2 .196 1942 Unknown [id number] 2.16.840.1.889749.3.579.2 .196 1942 Unknown [id number] 2.16.840.1.737091.3.579.2 .196 1942 Unknown [id number] 2.16.840.1.102794.3.579.2 .196 1942 Unknown [id number] 2.16.840.1.527583.3.579.2 .196 1942 Unknown [id number] 2.16.840.1.969048.3.579.2 .196 1942 Unknown [id number] 2.16.840.1.177134.3.579.2 .196 1942 Unknown [id number] 2.16.840.1.244150.3.579.2 .196 Unknown [id number] 2.16.840.1.508830.3.579.2 .531 Unknown [id number] 2.16.840.1.249365.3.579.2 .531 Unknown [id number] 2.16.840.1.735680.3.579.2 .531 Unknown [id number] 2.16.840.1.781759.3.579.2 .531 Unknown [id number] 2.16.840.1.097621.3.579.2 .531 Unknown [id number] 2.16.840.1.273335.3.579.2 .531 Unknown [id number] 2.16.840.1.488576.3.579.2 .531 Social History Date Type Detail Facility Start: 02-20-2004 End: 12-16-2024 Tobacco smoking status NHIS Former smoker [facility] Comment on above: quit smoking in 1985 Start: 07-14-1979 End: 07-14-1999 History of tobacco use Current smoker [facility] Work Phone: Start: 02-20-2004 Alcohol intake Not Asked Renita keen [facility] Start: 1940 Sex Assigned At Not on file C [facility] Start: 02-07-2023 End: 01-12-2025 Sex Assigned At [facility] Start: 1940 Sex Assigned At Female F [facility] Start: 07-14-1979 End: 07-14-1999 History of tobacco use Cigarette Smoker [facility] Start: 04-04-2022 End: 01-12-2025 Cigarettes smoked current (pack per day) - Reported 1.5 [facility] Start: 04-04-2022 End: 12-17-2024 Tobacco use and exposure Smokeless tobacco non-user [facility] Start: 04-04-2022 End: 12-17-2024 Alcohol intake Ex-drinker (finding) [facility] Start: 03-25-2022 End: 04-18-2022 Exposure to SARS-CoV-2 (event) Not sure [facility] Adult Depression Screening Assessment 0 [facility] Comment on above: quit smoking in 1984 Start: 12-07-2022 Tobacco smoking stat [facility] Never smoked tobacco [facility] Start: 08-21-2023 End: 01-12-2025 Alcohol intake Current drinker of alcohol (finding) [facility] Start: 12-07-2022 Alcohol Comment Alcohol: 1-2 d rinks occasionally. Caffeine: 3-4 cups/day coffee [facility] Start: 05-27-2024 End: 12-16-2024 Sex Female (finding) [facility] Sexual Orientation [facility] Medical Equipment Procedure Code Equipment [...] ALLOGRAFT FUSELO X LUMBAR FDA Start: 03-24-2017 [place] One Level Deformity FDA Start: 03-24-2017 CANCELLOUS 15CC CRUSHED FDA Start: 03-24-2017 CROSSLINK CAPLOX II MED/LG FDA Start: 03-24-2017 NUVASIVE LOCK SCREWS FDA Star t: 09-11-2017 NUVASIVE LOCK SCREWS FDA Star t: [...] ALLOGRAFT FUSELO X LUMBAR FDA Start: 03-24-2017 [place] One Level Deformity FDA Start: 03-24-2017 CANCELLOUS [...] ALLOGRAFT FUSELO X LUMBAR FDA Start: 03-24-2017 [place] One Level Deformity FDA Start: 03-24-2017 CANCELLOUS [...] ALLOGRAFT FUSELO X LUMBAR FDA Start: 03-24-2017 [place] One Level Deformity FDA Start: 03-24-2017 CANCELLOUS [...] ALLOGRAFT FUSELO X LUMBAR FDA Start: 03-24-2017 [place] One Level Deformity FDA Start: 03-24-2017 CANCELLOUS [...] ALLOGRAFT FUSELO X LUMBAR FDA Start: 03-24-2017 [place] One Level Deformity FDA Start: 03-24-2017 CANCELLOUS [...] ALLOGRAFT FUSELO X LUMBAR FDA Start: 03-24-2017 [place] One Level Deformity FDA Start: 03-24-2017 CANCELLOUS [...] ALLOGRAFT FUSELO X LUMBAR FDA Start: 03-24-2017 [place] One Level Deformity FDA Start: 03-24-2017 CANCELLOUS [...] ALLOGRAFT FUSELO X LUMBAR FDA Start: 03-24-2017 [place] One Level Deformity FDA Start: 03-24-2017 CANCELLOUS [...] ALLOGRAFT FUSELO X LUMBAR FDA Start: 03-24-2017 [place] One Level Deformity FDA Start: 03-24-2017 CANCELLOUS [...] ALLOGRAFT FUSELO X LUMBAR FDA Start: 03-24-2017 [place] One Level Deformity FDA Start: 03-24-2017 CANCELLOUS [...] 03-24-2017 NUVASIVE KAREEM FDA Start: 03-24-2017 NUVASIVE AKREEM FDA Start: 03-24-2017 OSTEOAMP GRANULE S 10CC FDA Start: 03-24-2017 ALLOGRAFT FUSELO X LUMBAR FDA Start: 03-24-2017 [place] One Level Deformity FDA Start: 03-24-2017 CANCELLOUS [...] ALLOGRAFT FUSELO X LUMBAR FDA Start: 03-24-2017 [place] One Level Deformity FDA Start: 03-24-2017 CANCELLOUS [...] ALLOGRAFT FUSELO X LUMBAR FDA Start: 03-24-2017 [place] One Level Deformity FDA Start: 03-24-2017 CANCELLOUS [...] ALLOGRAFT FUSELO X LUMBAR FDA Start: 03-24-2017 [place] One Level Deformity FDA Start: 03-24-2017 CANCELLOUS [...] ALLOGRAFT FUSELO X LUMBAR FDA Start: 03-24-2017 [place] One Level Deformity FDA Start: 03-24-2017 CANCELLOUS [...] ALLOGRAFT FUSELO X LUMBAR FDA Start: 03-24-2017 [place] One Level Deformity FDA Start: 03-24-2017 CANCELLOUS [...] ALLOGRAFT FUSELO X LUMBAR FDA Start: 03-24-2017 [place] One Level Deformity FDA Start: 03-24-2017 CANCELLOUS [...] ALLOGRAFT FUSELO X LUMBAR FDA Start: 03-24-2017 [place] One Level Deformity FDA Start: 03-24-2017 CANCELLOUS [...] ALLOGRAFT FUSELO X LUMBAR FDA Start: 03-24-2017 [place] One Level Deformity FDA Start: 03-24-2017 CANCELLOUS [...] ALLOGRAFT FUSELO X LUMBAR FDA Start: 03-24-2017 [place] One Level Deformity FDA Start: 03-24-2017 CANCELLOUS [...] ALLOGRAFT FUSELO X LUMBAR FDA Start: 03-24-2017 [place] One Level Deformity FDA Start: 03-24-2017 CANCELLOUS [...] ALLOGRAFT FUSELO X LUMBAR FDA Start: 03-24-2017 [place] One Level Deformity FDA Start: 03-24-2017 CANCELLOUS [...] ALLOGRAFT FUSELO X LUMBAR FDA Start: 03-24-2017 [place] One Level Deformity FDA Start: 03-24-2017 CANCELLOUS [...] ALLOGRAFT FUSELO X LUMBAR FDA Start: 03-24-2017 [place] One Level Deformity FDA Start: 03-24-2017 CANCELLOUS [...] ALLOGRAFT FUSELO X LUMBAR FDA Start: 03-24-2017 [place] One Level Deformity FDA Start: 03-24-2017 CANCELLOUS [...] ALLOGRAFT FUSELO X LUMBAR FDA Start: 03-24-2017 [place] One Level Deformity FDA Start: 03-24-2017 CANCELLOUS [...] ALLOGRAFT FUSELO X LUMBAR FDA Start: 03-24-2017 [place] One Level Deformity FDA Start: 03-24-2017 CANCELLOUS [...] 08-16-2024 Functional Status N/A [facility] 02-24-2024 Functional Status N/A [facility] 02-11-2023 Functional Status N/A [facility] 01-26-2022 Functional status Patient is Pro gressing Toward [facility] Work Phone: Mental Status Date Assessment Result Facility 01-26-2022 Cognitive function Cognitive Sta tus Patient at [facility] Work Phone: Clinical Notes 04-04-2021 to 02-08-2025 Telephone Encounter - Moe Betts, DO - 01/19/2025 4:35 PM EDTTelephone Encounter - Moe Betts, DO - 01/19/2025 4:35 PM EDTFnoemí Betts, DO - 01/12/2025 1:30 PM EDT [...] your health care provider. General instructions Take ysvy-ava-thdmxen and prescription medicines only as told by [...] provider. Document Revised: 03/19/2021 Document Reviewed: 03/19/2021 [employer] Patient Education 2023 [employer]. Follow Up Care 08/16/2024 09:56:41 With:Follow up in Spring Address:Unknown When: Unknown [facility] 02-08-2025 Note Patient Education Obstetrics and Gynecology [...] health care provider. General instructions ??? Take xhgg-ibo-uyonubo and prescription medicines only as told by [...] drink, and whe (more content not included)... [facility] 01-19-2025 Telephone encounter Note Marci had [...] to her medications. I'll see her PRN. [facility] 01-19-2025 Miscellaneous Notes Marci had an attempt [...] see her PRN. documented in this encounter [facility] 01-12-2025 History of Present illness Narrative Images [...] urethra 3x per week for UTI prevention, CoAxia #72, 178, cm, 08/16/24 9:10:00 EST, Height/Length [...] replacement OTHER SURGICAL HISTORY 1999 fissure repair MA REPAIR SLIDING INGUINAL HERNIA Hernia, inguinal TOTAL [...] have been made. documented in this encounter [facility] 12-17-2024 History of Present illness Narrative Images from the original note were not included. 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 There have not been any new health [...] Reviewed on 05/26/2024 Name Date COVID-19 vaccine ([employer]) 03/19/2024, 06/23/2023 COVID-19 vaccine, bivalent ([employer]) 04/18/2022 COVID-19 vaccine, monovalent ([employer]) 06/01/2021, 09/01/2020, 08/11/2020 Physical Exam GENERAL APPEARANCE: [...] which included preparing to see the patient, iurq-kg-wudc patient care, completing clinical documentation, obtaining and/or [...] Time: 10:27 AM documented in this encounter [facility] 12-17-2024 Note HNO ID: [id number] Author: ZOHAIB GERMAN MD Service: ? 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 There have not been any new health [...] History FAMILY HISTORY (more content not included)... [facility] 12-16-2024 Evaluation note Diagnosis Onset Date Resolution [...] 27, 2025 1:47pm Hyperkalemia acute January 27, 025 1:47pm Hypertensive chronic kidney disease with [...] 2025 2:43pm Diabetes chronic February 15 2:43pm [facility] Work Phone: 1(783) 512-655405-07-2025 Telephone encounter Note* Telephone Encounter - Susan Caballero - 11/17/2024 2:35 PM EDT Records faxed to Dr. Silva [phone]. I called Roxie to let her know they were faxed. [facility]05-07-2025 Miscellaneous Notes* Telephone Encounter - Susan Caballero - 11/17/2024 2:35 PM EDT Records faxed to Dr. Silva [phone]. I called Roxie to let her know they were faxed. * Telephone Encounter - Lori Renner - 11/17/2024 11:[address] Zena DREW Received a call from patient caregiver Roxie Bhagat. She stated that patient would like to cancel her upcoming appointment with Dr Paredes on 11/24 due to patient is going to be following with Dr Silva @ [facility] as this is closer to home for patient. Roxie requested to talk to medical records regarding having records sent to Dr Silva transferred call To Heather Todd. Lori Callahan [facility] Telephone encounter Note * Telephone Encounter - Lori Renner - 11/17/2024 11:[address] Zena DREW Received a call from patient caregiver Roxie Bhagat. She stated that patient would like to cancel her upcoming appointment with Dr Paredes on 11/24 due to patient is going to be following with Dr Silva @ [facility] as this is closer to home for patient. Roxie requested to talk to medical records regarding having records sent to Dr Silva transferred call To Heather Todd. Lori Callahan [facility]04-30-2025 Evaluation note* Author Ayanna Vicente [facility] Authored November 10, 2024 4:5 1pm The above note written by __ _Melanie Conde____ acting as human recorder, note dictated by Dr. Slater .I performed the above HPI, ROS, and Examination. I formulated and dictated the treatment plan and was present for entire encounter. Ayanna Vicente D.O. [facility] Work Phone: 1(848) 728-682604-30-2025 Hospital Discharge instructionsAmbulatory Orders* Referral to Hematology Time Frame: 11/10/24, Location: None Selected * Referral to Nephrology Time Frame: 11/10/24, Location: None Selected [facility] Work Phone: 1(709) 492-623802-03-2025 Hospital Discharge instructions Patient Education 08/16/2024 10:04:56 [...] provider. Document Revised: 01/28/2023 Document Reviewed: 01/28/2023 [employer] Patient Education 2023 [employer]. Follow Up Care 08/11/2024 14:41:18 With:JAX BECKMAN, SUSAN Miller, URL Address: [facility] Robb Esvinangela [facility] [place] [address] When:Within 6 Month(s) [facility] 02-03-2025 NotePatient Education Caregiving Antibiotic Medicine, Adult [...] ??? You have sig (more content not included)...[facility] 08-11-2024 Evaluation note* Author Ayanna Vicente [facility] Authored August 11, 2024 1 :46pm The above note written by __ _Melanie Conde____ acting as human recorder, note dictated by Dr. Slater .I performed the above HPI, ROS, and Examination. I formulated and dictated the treatment plan and was present for entire encounter. Ayanna Vicente D.O. [facility] Work Phone: 1(299) 263-123801-27-2025 History of Present illness Narrative* Esvin Dubon [...] Right 2009 knee replacement OTHER SURGICAL HISTORY 2000 fissure repair MA REPAIR SLIDING INGUINAL HERNIA Hernia, inguinal TOTAL [...] , wrist extensors , wrist flexor , site monitor strength 5/5. LUE Strength deltoid , biceps , triceps , wrist extensors , wrist flexor , site monitor strength 5/5. RLE Strength illopsoas, quadriceps, tibialis [...] knee reflex 0. Hdz's sign negative. Coordination: Icycxa-tz-soyy testing is normal Rapid alternating movements are [...] on 06/22/2024: TSH 2.632 (wnl), B12 721 [place] cognitive assessment at [facility] on 06/17/2024: 30 MRI [facility] brain at [facility] on 07/04/18: Mild age-related changes and [...] of mental health issues documented in this [facility]12-16-2024 History of Present illness Narrative* Enrique Hammonds, [...] No history of alcohol/substance abuse. Reformed smoker. [place] language Spanish. Completed a master's degree. 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 and currently lives alone. Because of one child living out of state. MEDICAL HISTORY/MEDICATION: Past Medical History: Diagnosis Date Hernia, inguinal History of insulin dependent diabetes mellitus IDDM History of left knee replacement History of right knee joint replacement 2010 Leukemia ([facility]) Neuropathy IDDM MEDICATIONS: Current Outpatient [...] PRN incontinence, #90 tab(s), Refills(s) 3, Pharmacy: [facility], 178, cm, 02/11/23 11:43:00 EDT, Height/Length [...] of this individual. Please contact me with [place] at [phone]. documented in this encounterKindred [id number] History of Present illness Narrative* Moe Betts, [...] replacement OTHER SURGICAL HISTORY 1999 fissure repair MA REPAIR SLIDING INGUINAL HERNIA Hernia, inguinal TOTAL [...] to have the scope. documented in this encounterKindred [id number] History of Present illness Narrative* Babita Guillaume [...] at times and having difficulty concentrating. `MOCA 29/30 Review of Systems Constitutional: Negative for appetite [...] replacement OTHER SURGICAL HISTORY 1999 fissure repair MA REPAIR SLIDING INGUINAL HERNIA Hernia, inguinal TOTAL [...] person, place and time. [place] cognitive assessment: 2930 Language is fluent [...] , wrist extensors , wrist flexor , site monitor strength 5/5. LUE Strength deltoid , biceps , triceps , wrist extensors , wrist flexor , site monitor strength 5/5. RLE Strength illopsoas, quadriceps, tibialis [...] knee reflex 0. Hdz's sign negative. Coordination: Qiomrk-hz-xihm testing and rapid alternating movements are normal Gait: Normal Review and summary of old records: [place] cognitive assessment at [facility] on 06/17/2024: Assessment/Plan Diagnoses and all [...] of mental health issues documented in this encounterKindred [id number] NoteHNO ID: [id number] Author: YOUNG HERRERA LPN Service: ? Author Type: LICENSED NURSE Type: Progress Notes Filed: 06/08/2024 13:05 Note Text: Eye exam for Plaquenil toxicity received from [facility] . Exam date was 06/07/2024. Exam shows no signs of Plaquenil toxicity. Forms sent for scanning.[facility] History of Present illness Narrative* Young Herrera LPN - 06/08/2024 1:05 PM EST Eye exam for Plaquenil toxicity received from [facility] . Exam date was 06/07/2024. Exam shows no signs of Plaquenil toxicity. Forms sent for scanning. documented in this encounterMercy [facility]11-13-2024 Instructions* Patient Instructions* Chad Freitas MD - 05/26/2024 2:09 PM EST Labs today F/u in 6 months documented in this encounterMercy Health Clermont Hospital11-13-2024 History of Present illness Narrative* Chad Freitas MD - 05/26/2024 2:00 PM EST Images from the original note were not included. PATIENT NAME: Kathy Washburn CLINIC NO.: [id number] ATTENDING PHYSICIAN: Chad Freitas MD DATE OF [...] sweats - Did mammogram last week at [facility]. - Scheduled to see Intensive Care Anaesthetist PAST MEDICAL HISTORY Diagnosis Date Depression Diabetes [...] Range Status 08/08/2023 2.0 % Final Abs [place] Date Value Ref Range Status 08/08/2023 0.39 [...] do not hesitate to contact me at [phone]. Chad Freitas MD Hematology/Medical Oncology [facility] [place] [facility] spent a total of 20 minutes on the date of the service which included preparing to see the patient, wqaj-jp-ykdr patient care, completing clinical documentation, obtaining and/or reviewing separately obtained history, counseling and educating the patient/family/caregiver, and ordering medications, tests, or procedures. CC: Ayanna Vicente DO documented in this encounterMercy Health Clermont Hospital11-13-2024 NoteHNO ID: [id number] Author: CHAD FREITAS MD Service: ? Author Type: Physician Type: Progress Notes Filed: 05/26/2024 14:41 Note Text: PATIENT NAME: Kathy Washburn CLINIC NO.: [id number] ATTENDING PHYSICIAN: Chad Freitas MD DATE OF [...] sweats - Did mammogram last week at [facility]. - Scheduled to see Intensive Care Anaesthetist PAST MEDICAL HISTORY Diagnosis Date Depression Diabetes [...] Date Value Ref Range (more content not included)...[facility] 05-17-2024 NoteHNO ID: [id number] Author: ZOHAIB GERMAN MD Service: ? Author Type: Physician Type: Progress Notes Filed: 05/17/2024 13:34 Note Text: Rheumatology Outpatient Clinic Date of Service: 05/17/2024 Patient: Kathy Washburn Medical Record: [id number] Primary Care Physician: Ayanna Vicente DO [facility] Referring Provider: No referring provider defined [...] unit/mL injection Inject subcutaneously (more content not included)...[facility]11-04-2024 History of Present illness Narrative* Zohaib German MD - 05/17/2024 12:56 PM EST Images from the original note were not included. Rheumatology Outpatient Clinic Date of Service: 05/17/2024 Patient: Kathy Washburn Medical Record: [id number] Primary Care Physician: Ayanna Vicente DO [facility] Referring Provider: No referring provider defined [...] Reviewed on 07/19/2022 Name Date COVID-19 vaccine (PFIZER-BIONTECH) 03/19/2024, 06/23/2023 COVID-19 vaccine, bivalent (PFIZER-BIONTECH) 04/18/2022 [...] without complication, with long-term current use of insulin([facility]) Plan Orders this visit: Office [...] which included preparing to see the patient, uizt-dk-gnsq patient care, completing clinical documentation, obtaining and/or [...] 12:56 PM documented in this encounterMercy Health Clermont Hospital10-29-2024 Hospital Discharge instructionsAmbulatory Orders* Referral to Neurology Time Frame: 05/11/24, Location: None [facility] Work Phone: 1(676) 737-369308-26-2024 Evaluation note* Author Ayanna Vicente [facility] Authored March 08, 2024 3: 24pm The above note written by __ _Melanie Conde____ acting as human recorder, note dictated by Dr. Slater .I performed the above HPI, ROS, and Examination. I formulated and dictated the treatment plan and was present for entire encounter. Ayanna Vicente D.O. Author Ayanna [facility] Authored February 05, 2024 9:11 am The above note written by __ _Melanie Conde____ acting as human recorder, note dictated by Dr. Slater .I performed the above HPI, ROS, and Examination. I formulated and dictated the treatment plan and was present for entire encounter. Ayanna Vicente D.O. [facility] Work Phone: 1(674) 238-779208-26-2024 Evaluation note* Author Ayanna [facility] Authored March 08, 2024 3: 24pm The above note written by __ _Melanie Conde____ acting as human recorder, note dictated by Dr. Slater .I performed the above HPI, ROS, and Examination. I formulated and dictated the treatment plan and was present for entire encounter. Ayanna Vicente D.O. Author [facility] Authored April 05, 2024 10:47am The above note written by __ _Melanie Conde____ acting as human recorder, note dictated by Dr. Slater .I performed the above HPI, ROS, and Examination. I formulated and dictated the treatment plan and was present for entire encounter. Ayanna Vicente D.O. [facility] Work Phone: 1(707) 896-430408-26-2024 Evaluation note* Author Ayanna [facility] Authored March 08, 2024 3: 24pm The above note written by __ _Melanie Conde____ acting as human recorder, note dictated by Dr. Slater .I performed the above HPI, ROS, and Examination. I formulated and dictated the treatment plan and was present for entire encounter. Ayanna Vicente D.O. Author [facility] Authored May 11, 2024 3 :30pm The above note written by __ _Melanie Conde____ acting as human recorder, note dictated by Dr. Slater .I performed the above HPI, ROS, and Examination. I formulated and dictated the treatment plan and was present for entire encounter. Ayanna Vicente D.O. Author [facility] Authored April 05, 2024 10:47am The above note written by __ _Melanie Conde____ acting as human recorder, note dictated by Dr. Slater .I performed the above HPI, ROS, and Examination. I formulated and dictated the treatment plan and was present for entire encounter. Ayanna Vicente D.O. [facility] Work Phone: 1(766) 161-673608-26-2024 Evaluation note* Author Ayanna [facility] Authored March 08, 2024 2: 24pm The above note written by __ _Melanie Conde____ acting as human recorder, note dictated by Dr. Slater .I performed the above HPI, ROS, and Examination. I formulated and dictated the treatment plan and was present for entire encounter. Ayanna Vicente D.O. Author [facility] Authored May 11, 2024 2 :30pm The above note written by __ _Melanie Conde____ acting as human recorder, note dictated by Dr. Slater .I performed the above HPI, ROS, and Examination. I formulated and dictated the treatment plan and was present for entire encounter. Ayanna Vicente D.O. Author [facility] Authored April 05, 2024 9:47am The above note written by __ _Melanie Conde____ acting as human recorder, note dictated by Dr. Slater .I performed the above HPI, ROS, and Examination. I formulated and dictated the treatment plan and was present for entire encounter. Ayanna Vicente D.O. [facility] Work Phone: 1(191) 845-211508-13-2024 Hospital Discharge instructions Patient Education 02/24/2024 10:42:26 [...] your health care provider. General instructions Take fuzh-apj-jcfdrob and prescription medicines only as told by [...] provider. Document Revised: 03/19/2021 Document Reviewed: 03/19/2021 [employer] Patient Education 2022 [employer]. Follow Up Care 02/11/2023 12:11:14 With:JAX BECKMAN, SUSAN Miller, URL Address: [address] [place] [address] [id number] When: Unknown Comments:6 mos (no labs) [facility] 08-13-2024 NotePatient Education Obstetrics and [...] health care provider. General instructions ? Take jnuk-ivl-tzzcwro and prescription medicines only as told by [...] help your health care (more content not included)...[facility]07-25-2024 Evaluation note* Author Ayanna Vicente [facility] Authored February 05, 2024 9:11 am The above note written by __ _Melanie Conde____ acting as human recorder, note dictated by Dr. Slater .I performed the above HPI, ROS, and Examination. I formulated and dictated the treatment plan and was present for entire encounter. Ayanna Vicente D.O. [facility] Work Phone: 1(682) 506-644504-09-2024 Evaluation note* Author Ayanna Vicente [facility] Authored October 21, 2023 4:11 pm The above note written by __ _Melanie Conde____ acting as human recorder, note dictated by Dr. Slater .I performed the above HPI, ROS, and Examination. I formulated and dictated the treatment plan and was present for entire encounter. Ayanna Vicente D.O. [facility] Work Phone: 1(876) 197-293402-15-2024 History of Present illness Narrative* James Smith DPM - 08/28/2023 1:45 PM EST Images [...] open areas were noted. documented in this encounterKindred [id number] Evaluation note* Encounter Date Diagnosis Assessment Notes [...] sacroiliac steroidal injection. Refer the patient to [facility] for aqua therapy. Discuss with primary care physician, Dr. Vicente, about prescribing a steroid prednisone for temporary relief during the patient's cruise, in the event unable to see painmanagment before vacation. Order a lidocaine patch for the patient to use on the sacroiliac and hip area for pain relief.Recommend vyyr-dup-ysjacnp Thermacare or heat patches to use alongside the lidocaine patch. 3. 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 Monitor the degeneration and consider a preventative approach. Encourage the patient to take Tylenol arthritis for overall help. 4. Bone density: - Plan: Dexa scan within normal limits. Jul, Pain in left hip (ICD-10 - M25.552) Jul, Sacroiliac inflammation (ICD-10 - M46.1) Jul, Cervical pain (ICD-10 - M54.2) Jul, DDD (degenerative disc disease), lumbar (ICD-10 - M51.36) [employer] Other 01-03-2024 Evaluation note* Encounter Date Diagnosis [...] She will continue to monitor her memory. [facility] Other 10-03-2023 Evaluation note* Encounter Date Diagnosis [...] s he has about immunizations were answered. [facility] Other 10-02-2023 Evaluation note* Encounter Date Diagnosis Assessment Notes Treatment Notes Treatment Clinical Notes Apr, Insomnia (ICD-10 - G47.00) Apr, Neuropathy (ICD-10 - G62.9) [facility] Other 08-15-2023 Evaluation note* Encounter Date Diagnosis [...] Feb, Lumbar disc disease (ICD-10 - M51.9) [facility] Other 08-01-2023 Hospital Discharge instructions Patient Education [...] your health care provider. General instructions Take jhoa-biu-qxplwne and prescription medicines only as told by [...] provider. Document Revised: 03/19/2021 Document Reviewed: 03/19/2021 [employer] Patient Education 2022 [employer]. Follow Up Care 01/23/2023 15:26:59 With:JAX BECKMAN, SUSAN Miller, URL Address: [address] [facility] [place] [address] When: Unknown [facility] 07-28-2023 History of Present illness Narrative* Santos Lares MD - 02/07/2023 1:38 PM EDT Images from the original note were not included. PATIENT NAME: Kathy Washburn CLINIC NO.: [id number] ATTENDING PHYSICIAN: Santos Lares MD DATE OF [...] Range Status 07/19/2022 5.0 % Final Abs [place] Date Value Ref Range Status 07/19/2022 0.84 [...] do not hesitate to contact me at [phone]. Santos Lares MD Hematology/Medical Oncology [facility] [place] [facility] spent a total of 30 minutes on the date of the service which included preparing to see the patient, arck-zu-yzam patient care, completing clinical documentation, obtaining and/or reviewing separately obtained history, counseling and educating the patient/family/caregiver, and ordering medications, tests, or procedures. CC: Ayanna Vicente DO documented in this encounterMercy [facility]06-27-2023 Evaluation note* Encounter Date Diagnosis Assessment [...] Dec, Other 1:43 PM - 1:59 PM [facility] Other 06-26-2023 Evaluation note* Encounter Date Diagnosis Assessment Notes Treatment Notes Treatment Clinical Notes Dec, Hyperlipidemia (ICD-10 - E78.5) [facility] Other 04-05-2023 Evaluation note* Encounter Date Diagnosis Assessment Notes Treatment Notes Treatment Clinical Notes Oct, Neuropathy (ICD-10 - G62.9) [facility] Other 03-22-2023 Evaluation note* Encounter Date Diagnosis Assessment Notes Treatment Notes Treatment Clinical Notes Sep, Insomnia (ICD-10 - G47.00) [facility] Other 03-22-2023 Evaluation note* Encounter Date Diagnosis [...] to see her blood sugars below 90. Alexander sugar readings are in the 120's. She [...] discussion for her to have with her it communications manager. Sep, Insomnia (ICD-10 - G47.00) We discussed [...] has not driven past any local towns ([place], [place]). She did have a cardiac work up [...] abuse treatments are being prescribed. Sep, Other half-way (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 therapy (ICD-10 - Z79.899) Sep, [...] had an MRI of her neck done. [facility] Other 01-09-2023 Miscellaneous Notes* Telephone Encounter - [...] stated she would call her PCP. Lori Callahan I had already called [facility] office before [...] ear pain and would like to know Stefany Lares can help her get in to see Dr Ly sooner. Lisa Green, RN * Telephone Encounter - Susan Todd [facility] - 07/19/2022 2:21 PM EST Records faxed to Dr. Ly. * Telephone Encounter - Susana Grant - 07/19/2022 1:21 PM EST Referral to Dr. Ly for Right ear pain. Ehather/Royer: Can you please send information and follow up? Manuel Romero put information in your mailbox forreferral. Thank you! Susana Liaoashley documented in this encounterMercy Health Clermont Hospital01-06-2023 History of Present illness Narrative* Santos Lares MD - 07/19/2022 12:34 PM EST PATIENT NAME: Kathy Washburn CLINIC NO.: [id number] ATTENDING PHYSICIAN: Santos Lares MD DATE OF [...] 11.45 (H) 1.00 - 4.00 k/uL Final [place]% Date Value Ref Range Status 07/19/2022 5.0 % Final Abs [place] Date Value Ref Range Status 07/19/2022 0.84 [...] do not hesitate to contact me at [phone]. Santos Lares MD Hematology/Medical Oncology [facility] [place] [facility] spent a total of 30 minutes on the date of the service which included preparing to see the patient, qsfp-sf-uzvt patient care, completing clinical documentation, obtaining and/or reviewing separately obtained history, counseling and educating the patient/family/caregiver, and ordering medications, tests, or procedures. Medical Decision Making: Medical Decision Making Level: 1 - N/A CC: Ayanna Vicente DO documented in this encounterMercy Health Clermont Hospital01-06-2023 Nurse Note* Lluvia Samuel MA - 07/19/2022 12:20 PM EST Patient would like to ask you about her right ear, it is painful to touch, her head also hurts and also has Left side pain. Lluvia Samuel MA documented in this encounterMercy Health Clerm[facility] Hospital11-18-2022 Evaluation note* Encounter Date Diagnosis Assessment Notes Treatment Notes Treatment Clinical Notes May, Cystitis (ICD-10 - N30.90) [facility] Other 10-11-2022 Evaluation note* Encounter Date Diagnosis Assessment Notes Treatment Notes Treatment Clinical Notes Apr, BMI 31.0-31.9,adult (ICD-10 - Z68.31) [facility] Other 10-06-2022 History of Present illness Narrative* Santos Lares MD - 04/18/2022 11:59 AM EDT PATIENT NAME: Kathy Washburn [facility] NO.: [id number] ATTENDING PHYSICIAN: Santos Lares MD DATE OF [...] 9.37 (H) 1.00 - 4.00 k/uL Final [place]% Date Value Ref Range Status 04/04/2022 5.0 % Final Abs [place] Date Value Ref Range Status 04/04/2022 0.67 [...] do not hesitate to contact me at [phone]. Santos Lares MD Hematology/Medical Oncology [facility] [place] I spent a total of 30 minutes on the date of the service which included preparing to see the patient, nlgd-yg-edbf patient care, completing clinical documentation, obtaining and/or reviewing separately obtained history, counseling and educating the patient/family/caregiver, and ordering medications, tests, or procedures. Medical Decision Making: Medical Decision Making Level: 1 - N/A CC: Ayanna Vicente DO documented in this encounterMercy Health Clerm[facility] Hospital09-28-2022 Evaluation note* Encounter Date Diagnosis Assessment Notes Treatment Notes Treatment Clinical Notes Mar, Neuropathy (ICD-10 - G62.9) [facility] Other [phone] Miscellaneous Notes* Telephone Encounter - Santos Lares MD - 04/05/2022 5:06 PM EDT Spoke to the patient and answered her questions * Telephone Encounter - Niurka Hood RN - 04/05/2022 4:08 PM EDT Pt notified and verbalizes understanding. Pt would like to speak w/ you before her next appointment. Asks that you call her @ [phone] when you have time. Thanks! Niurka Hood RN * Telephone Encounter - Niukra Hood RN - 04/05/2022 4:07 PM EDT ----- Message from Santos Lares MD sent at 04/05/2022 3:08 PM EDT ----- Please let her know that as we discussed yesterday she has confirmed CLL and we can discuss more atmy appointment with her. I tried calling her but no one picked up documented in this encounterMercy Health Clermont Hospital09-22-2022 History of Present illness Narrative* Santos Lares MD - 04/04/2022 11:32 AM EDT PATIENT NAME: Kathy Washburn CLINIC NO.: [id number] ATTENDING PHYSICIAN: Santos Lares MD DATE OF [...] ago. Has a son who lives in [place]. She does not smoke nor drink heavily. [...] Santos Lares M.D. Hematology/Medical Oncology [facility] [place] [phone] CC: Ayanna Vicente DO documented in this encounterMercy Health Clermont Hospital09-20-2022 Evaluation note* Encounter Date Diagnosis Assessment [...] hurt. She has not followed with any peer support specialist. She saw Dr. Akins in the [...] would like to refer her to a assistant finance director for evaluation, and she agrees. A referral [...] if needed. She can also see a painter and body mechanic apprentice to discuss injections. She voices that she saw Dr. Guillaume in the past for migraines and would like to see Dr. Morales for evaluation. For now she will try to take the pain medication more often and see if this provides her with better relief and will continue to monitor. I will refer her to Dr. Morales for evaluation. 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 She voices understanding. Mar, Encounter for screening [...] find out where Dr. Milner went in [place] and then will refer her back to Dr. Milner to discuss a colonoscopy. Mar, Weight loss (ICD-10 - R63.4) She has lost 1.5 pounds since last seen. [facility] Other 09-06-2022 Evaluation note* Encounter Date Diagnosis Assessment Notes Treatment Notes Treatment Clinical Notes Mar, Diabetes type 2, uncontrolled (ICD-10 - E11.65) Mar, Hypertension (ICD-10 - I10) Mar, Neuropathy (ICD-10 - G62.9) [facility] Other 08-26-2022 Evaluation note* Encounter Date Diagnosis Assessment Notes Treatment Notes Treatment Clinical Notes Feb, Diabetes type 2, uncontrolled (ICD-10 - E11.65) [facility] Other 07-27-2022 Evaluation note* Encounter Date Diagnosis [...] home. She would like to see Dr. Akisn for evaluation and a referral is provided [...] Ambien, she is taking Melatonin. Jan, 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 (ICD-10 - Z79.899) Jan, [...] ER right away because she was at [facility] which is [place] miles west of [place] and there was not an ER close [...] he thinks she can return to driving. [facility] Other 06-27-2022 Evaluation note* Encounter Date Diagnosis Assessment Notes Treatment Notes Treatment Clinical Notes Dec, Dysphagia (ICD-10 - R13.10) [facility] Other 06-27-2022 Evaluation note* Encounter Date Diagnosis Assessment Notes Treatment Notes Treatment Clinical Notes Dec, Other spondylosis with radiculopathy, lumbar region (ICD-10 - M47.26) [facility] Other 06-16-2022 Evaluation note* Encounter Date Diagnosis [...] M20.42) Dec, Foot deformity (ICD-10 - M21.969) [facility] Other 06-08-2022 Evaluation note* Encounter Date Diagnosis Assessment Notes Treatment Notes Treatment Clinical Notes Dec, Peripheral edema (ICD-10 - R60.9) [facility] Other 06-06-2022 Evaluation note* Encounter Date Diagnosis Assessment Notes Treatment Notes Treatment Clinical Notes Dec, History of colon polyps (ICD-10 - Z86.010) Dec, Irritable bowel syndrome with diarrhea (ICD-10 - K58.0) MAY USE IMODIUM NEEDED PT TO REPORT PROGRESS [facility]IP[facility] Other 05-02-2022 Evaluation note* Encounter Date Diagnosis Assessment Notes Treatment Notes Treatment Clinical Notes November, Cystitis (ICD-10 - N30.90) [facility] Other 03-22-2022 Evaluation note* Encounter Date Diagnosis [...] when she came home from traveling from [place] last week she had congestion and was coughing alot, she had alot of irritation in her throat and the back of her throat. She feels like someone put a bullet in her throat. She took a decongestant yesterday and feels better today. 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 I did recommend that she have [...] that she was able to travel to [place] last week on her own for the first time by herself with her back issues and did well. She did have to use a wheelchair. She did need a wheelchair while in the airport. An OARRS report was reviewed, no discrepancies noted. Frequent appointments needed due to addiction potential. She has not gone to the [facility]. She voices that she never got a call back from that center and did not pursue this because she got involved with a urologist then developed bowel issues. She voices that she will follow up with the [facility] and Dr. Regan for this issue. [...] Sep, Other 2:54 PM - 3:20 PM [facility]IP[facility] Other 03-21-2022 Evaluation note* Encounter Date Diagnosis Assessment Notes Treatment Notes Treatment Clinical Notes Sep, Cough (ICD-10 - R05.9) [facility] Other 03-03-2022 Evaluation note* Encounter Date Diagnosis [...] I did recommend that she see a holistic pulser for evaluation to discuss these issues further, [...] She agrees but she is going to [place] on 09-19-21 and will not return until [...] with the Imodium until she returns from [place] and is seen by Dr. Milner. She [...] Sep, Other 9:29 AM - 9:49 AM [facility] Other 01-05-2022 Evaluation note* Encounter Date Diagnosis Assessment Notes Treatment Notes Treatment Clinical Notes Jul, Neuropathy (ICD-10 - G62.9) [facility] Other 12-06-2021 Evaluation note* Encounter Date Diagnosis [...] refer her to the spine center in [place] but she did not pursue this. We [...] - N30.90) She currently follows with a clinical rehab liaison. She also saw Dr. Redding for evaluation and he did a procedure on her bladder to help with bladder leakage, she was supposed to see him again but he was sick so she is trying to get in to see either him or another doctor such as Dr. Peterson or Dr. Gleason, she does not want to see his PA or COPPING MACHINE OPERATOR. She gets a pain in her vaginal area, describes it as a cut but now it feels as if it is going up higher. When she went to brushing operator alevism yesterday she felt like someone cut her [...] Jun, Other 2:53 PM - 3:23 PM SIP[facility] Other 10-12-2021 Evaluation note* Encounter Date Diagnosis Assessment Notes Treatment Notes Treatment Clinical Notes Apr, Neuropathy (ICD-10 - G62.9) [facility] Other 09-22-2021 Evaluation note* Encounter Date Diagnosis [...] is referring her to the [facility] and she is seeing [...] the kidneys. She has never seen a toolmaker before. Her BUN is 40. Creatinine is [...] 6.2. We discussed referring her to a assistant finance director for evaluation and to discuss this further but instead we will repeat lab in one month and if her level is this high or higher then we will do a referral through the [facility] in [place]. Mar, Knee pain (ICD-10 - M25.569) She [...] attending physical therapy and will [facility]. Mar, Weight loss (ICD-10 - R63.4) She has lost 5.5 pounds since last seen. She voices that she is trying to lose weight slowly. Encouraged her to continue with what she is doing. SIPphone Other Evaluation + Plan note Future Appointments Appointment Date:02/24/2024 10:00:00 AM Scheduled Provider:SUSAN RANDOLPH PA-C Location:[facility] Appointment Type:URO Office Visit [facility] evaluation + Plan note Future Appointments Appointment Date:02/14/2025 01:20:00 PM Scheduled Provider:SUSAN RANDOLPH PA-C Location:[facility] Appointment Type:URO Office Visit [facility] evaluation + Plan note Future Appointments Appointment Date:10/27/2025 10:20:00 AM Scheduled Provider:JOSE Stewart APRN, [place] [facility] Location:[facility] Appointment Type:URO Office Visit [facility] evaluation note* Diagnosis Pain in both knees, unspecified chronicity- Primary [facility] Information[facility] [place] Other Evaluation note* Diagnosis Onset Date Resolution Status Abrasion acute Acute hypotension acute Acute UTI acute TIP (acute kidney injury) ac rampart Contusion of leg, right acut e Fall [...] fracture acute Diabetes chronic Hypertension chronic Hypothyroidism [facility] Work Phone: Evaluation note* Diagnosis Lymphocytosis- Primary Lymphocytosis (symptomatic) [facility] Diagnosis CLL (chronic lymphocytic leukemia) (HCC)- Primary Chronic lymphoid leukemia, without mention of having achieved remission [facility] Diagnosis Onset Date Resolution Status Acute UTI acute Chronic back pain acute Depression acute Diabetic neuropathy acute Fall acute Hematoma of right lower leg acute Impaired mobility and activities of daily living acute Minor closed head injury acu te Right wrist fracture acute Diabetes chronic Hypertension chronic Hypothyroidism [facility] Work Phone: Evaluation note* Diagnosis CLL (chronic lymphocytic leukemia) (HCC)- Primary Chronic lymphoid leukemia, without mention of having achieved remission Right ear pain Otalgia, unspecified Rib pain Chest pain, unspecified Axillary adenopathy Enlargement of lymph nodes Other signs and symptoms in breast Encounter for screening mammogram for malignant neoplasm of breast Other screening mammogram [facility]No assessment information [facility] Work Phone: Evaluation note* Diagnosis CLL (chronic lymphocytic leukemia) (HCC)- Primary Chronic lymphoid leukemia, without mention of having achieved remission [facility]* Diagnosis Onychomycosis- Primary Dermatophytosis of nail 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) Pain in both feet [facility] Diagnosis Onset Date Resolution Status Chronic lymphocytic leukemia acute Cystitis acute Diabetes type 2, uncontrolled acute Lumbar disc disease with radiculopathy acute Neuropathy acute Other abnormal blood chemistry acute 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 acute Peripheral edema acute HLD (hyperlipidemia) chronic Hypertension chronic Hypothyroidism chronic Insomnia chronic [facility] Work Phone: Evaluation note* Diagnosis Onset Date Resolution Status Right otitis media acute Cystitis acute Diabetes type 2, uncontrolled acute Other spondylosis with radiculopathy, lumbar region acute Rheumatism acute Insomnia chronic [facility] Work Phone: Evaluation note* Diagnosis Primary osteoarthritis involving multiple joints- Primary Fibromyalgia Mylagia and myositis, unspecified Type 2 diabetes mellitus without complication, with long-term current use of insulin ([facility]) [facility] Diagnosis CLL (chronic lymphocytic leukemia) ([facility])- Primary Chronic lymphoid leukemia, without mention of having achieved remission [facility] Diagnosis Cognitive impairment- Primary Unspecified persistent mental disorders due to conditions classified elsewhere Long-term use of high-risk medication documented in this encounter [facility]* Diagnosis Diarrhea, unspecified type- Primary Constipation, unspecified constipation type documented in this encounter [facility] note* Diagnosis Memory loss- Primary Concentration deficit Word finding difficulty Other chronic pain Family history of dementia Family history of other neurological diseases [facility]* Diagnosis Cognitive impairment- Primary Unspecified persistent mental disorders due to conditions classified elsewhere documented in this encounter [facility] HealthcareEvaluation note* Diagnosis Onset Date Resolution Status Admit Date Cystitis acute August 11, 2024 1:16pm Irritable bowel syndrome wit h diarrhea acute August 11 1:16pm Other spondylosis with radiculopathy, lumbar region acute Jason uary 2024 1:16pm [facility] Work Phone: Evaluation note* Diagnosis [...] November 10 3:41pm HLD (hyperlipidemia) chronic Apri l 2024 3:41pm Hypertension chronic November 10, 2024 3:41pm Hypothyroidism chronic October 3:41pm [facility] Work Phone: Evaluation note* Diagnosis Fibromyalgia- Primary Mylagia and myositis, unspecified Primary osteoarthritis involving multiple joints Type 2 diabetes mellitus without complication, with long-term current use of insulin (HCC) Long-term use of Plaquenil Encounter for long-term (current) use of other medications [facility] Diagnosis Diarrhea, unspecified type- Primary documented in this encounter [facility] HealthcareHistory general [...] yearl y Medical History 08-22-2011 Left femur [facility] [place] [place] Medical History - Chest x-ray [facility] [place] [place] Medical History stress test-normal ([facility]) Medical History [...] on polyps - Hospitalization History see above SIPphone Other History general Narrative - Reported* Type Description Date Medical History pelvic exam done Medical History 2008 mammogram-normal Medical History 2009 colonoscopy Medical History 2003 CT scan done Medical History 2007 eye exam Medical History Zostavax done Medical History Flu/H1N1 vaccine Medical History mammogram Medical History -2010 DEXA scan Medical History Follows with Dr. Roxane rivera y Medical History 08-22-2011 Left femur [facility] [place] [place] Medical History 08-22-2011 Chest x-ray [facility] [place] [place] Medical History stress test-normal ([facility]) Medical History [...] head lacera tion after a fall 01/13/22 SIPphone Other Hiskfwt general Narrative - Reported* Type Description Date Medical History pelvic exam done Medical History 2009 mammogram-normal Medical History 2009 colonoscopy Medical History 2003 CT scan done Medical History 2007 eye exam Medical History Zostavax done Medical History Flu/H1N1 vaccine Medical History mammogram Medical History DEXA scan Medical History Follows with Dr. Betts yearcar y Medical History 08-22-2011 Left femur [facility] [place] [place] Medical History 08-22-2011 Chest x-ray [facility] [place] [place] Medical History stress test-normal ([facility]) Medical History [...] head lacera tion after a fall 01/13/22 [facility] Other Hisjeus general Narrative - Reported* Type Description Date Medical History pelvic exam done Medical History 2008 mammogram-normal Medical History 2008 colonoscopy Medical History 2003 CT scan done Medical History 2007 eye exam Medical History Zostavax done Medical History Flu/H1N1 vaccine Medical History -2010 mammogram Medical History -2010 DEXA scan Medical History Follows with Dr. Betts yearl y Medical History - Left femur [facility] [place] [place] Medical History 08-22-2011 Chest x-ray [facility] [place] [place] Medical History stress test-normal ([facility]) Medical History [...] head lacera tion after a fall 01/13/22 SIPphone Other Hospital course Narrative No data available for this section [facility]: Hospital Discharge instructionsAmbulatory Orders* Referral to Sleep Medicine Time Frame: 02/05/24, Location: None [facility] Work Phone: Hospital Discharge instructionsAmbulatory Orders* Referral to General Surgery Time Frame: 04/05/24, Location: None [facility] Work Phone: Progress note No data available for this section [facility] Wilda reason for referral (narrative)* Diagnostic Procedure Only (Routine) Status Reason Specialty Diagnoses / Procedures Referred By Contact Referred To Contact Pending Review Auto-Generated Referral XR IMAGING Diagnoses Pain in both knees, unspecified chronicity Procedures XR PELVIS 1V AP X-RAY PELVIS AP ONLY Dale Espinoza PA-C [address] [address] Xr Imaging * Diagnostic Procedure Only (Routine) Status Reason Specialty Diagnoses / Procedures Referred By Contact Referred To Contact Pending Review Auto-Generated Referral XR IMAGING Diagnoses Pain in both knees, unspecified chronicity Procedures XR KNEE GENERAL 4V AP BOTH/PA BOTH/LAT/MERC BILAT KNEE AP-WGT/LAT/MERCHA NT Dale Espinoza PA-C [address] [place] [address] Xr Imaging [facility] for referral (narrative)* Diagnostic Procedure Only (Routine) - Pending Review Specialty Diagnoses / Procedures Referred By Selin vasquez Referred To Contact BR IMAGING Diagnoses Encounter for screening mammogram for malignant neoplasm of breast Procedures SONYA SCREENING W NEYDA SCREENING DIGITAL BREAST TOMOSYNTHESIS BI SCREENING MAMMOGRAPHY BI 2-VIEW BREAST INC CAD Santos Lares MD [address] [place] [address] [facility] [address] [place] [address] Referral ID Status Reason Start Date Expiration Date Visits Requested Visits Authorized [id number] Pending Review Auto-Generat ed Referral 07/19/2022 08/18/2023 1 1 * Diagnostic Procedure Only (Routine) - Pending Review Specialty Diagnoses / Procedures Referred By Contac t Referred To Contact BR IMAGING Diagnoses Axillary adenopathy Other signs and symptoms in breast Procedures US BREAST LTD LT US BREAST UNI REAL TIME WITH IMAGE LIMITED Santos Lares MD [address] [place] [address] [facility] [address] [place] [address] Referral ID Status Reason Start Date Expiration Date Visits Requested Visits Authorized [id number] Pending Review Auto-Generat ed Referral 07/26/2022 08/18/2023 1 1 * Diagnostic Procedure Only (Routine) - Pending Review Specialty Diagnoses / Procedures Referred By Contac t Referred To Contact XR IMAGING Diagnoses Rib pain Procedures XR RIBS/CHEST 3V AP RIB/OBLS/CXR LEFT RADEX RIBS UNI W/POSTEROANT CH MINIMUM 3 VIEWS Santos Lares MD [address] [place] [address] Xr Imaging Referral ID Status Reason Start Date Expiration Date Visits Requested Visits Authorized [id number] Pending Review Auto-Generat ed Referral 07/19/2022 08/18/2023 1 1 * Consult, Test, Treat (Routine) - Authorized Specialty Diagnoses / Procedures Referred By Contac t Referred To Contact Ent - Otolaryngology Diagnoses Right ear pain Procedures CONSULT TO ENT OFFICE/OUTPATIENT [facility] 60-74 MINUTES Santos Lares MD [address] [place] [id number] Referral ID Status Reason Start Date Expiration Date Visits Requested Visits Authorized [id number] Authorized PCP Requested Referral 07/19/2022 07/19/2023 1 1 [facility] for referral (narrative)* Reason appt pt needs cons ult to see Homa Mckeon /Dr. Corea for evaluation of lumbar pain Diagnosis 1 Other spondylosis wi th radiculopathy, lumbar region (M47.26) Referral Organization [facility] [place] Referring Provider First Name Ayanna Referring Provider Last Name Sakina Referring Provider Specialty Family Prac art Referred Organization [facility] urosurgery Referred Provider MckeonHoma Referred Address [address],[address] Referred Provider Specialty Nurse Uli cotto Referral Priority Routine General Notes Nereyda Sanchez 04/15/2023 03:33:35 PM > referral sent p2p. pt understands she will be contacted to schedule this appt [facility] Other reason for referral (narrative)No reason for referral information [facility]Main [facility] Work Phone: Reason for visit Narrativereview labs, refill medication, discuss multiple issues, see treatment plan for further information [facility] Other reason for visit NarrativePT HERE AT REQUEST OF DR VICENTE FOR EVALUATION AND TREATMENT OF CHANGE IN STOOL HABITS AND HISTORY OF IRRITABLE BOWEL SYNDROME AND COLON POLYPS, REFERRAL NOTE RECEIVEDNoKnimbus [place] Other Rekshp for visit Narrativereview labs/med refill, discuss multiple issues see treatment planNocox branson [place] Other Reqfaa for visit NarrativeNeurosurgery Referral Update SIPphone Other reason for visit Narrative* Consultation (Routine) - Closed Specialty Diagnoses / Procedures Referred By Selin vasquez Referred To Contact Neurology Diagnoses Other amnesia Procedures MA OFFICE/OUTPATIENT [facility] 30 MINUTES Ayanna Vicente MD [address] [place] [address] Phone: tel: fax: Babita Guillaume DO [address] [place] [address] Phone: tel: fax: Referral ID Status Reason Start Date Expiration Date V isits Requested Visits Authorized [id number] Closed Consult and Treat 05/21/2024 11/17/2024 1 1 [facility] for [facility] Narrative* Consultation (Routine) - Closed Specialty Diagnoses / Procedures Referred By Contfelipa t Referred To Contact Psychology Diagnoses Cognitive impairment Procedures MA OFFICE/OUTPATIENT NEW HIGH MDM Babita Guillaume DO [address] [place] [address] Phone: tel: fax: Enrique Hammonds, PhD [address] [address] Phone: tel: fax: Referral ID Status Reason Start Date Expiration Date V isits Requested Visits Authorized [id number] Closed Specialty Services Required 06/17/2024 12/14/2024 1 1 [facility] Healthcare Summary Purpose Family History No Family [...] in right hip (M 25.551) Referral Organization [facility] Ne urosurgery Referring Provider First Name Homa Referring Provider Last Name Mike Referring Provider Specialty Nurse Pract itioner Referred Organization [facility] Referred Provider Bonnie Slade Referred Address [address] [place], [place],[address] Referred Provider Specialty Pain Medicin e Referral Priority Routine General Notes Susan Ugarte 04:33:20 PM >received today, holding referral for todays visit note to be locked Reason evaluate and t reat for hip pain Diagnosis 1 Pain in right hip (M 25.551) Referral Organization [facility] urosurger Referring Provider First Name Homa Referring Provider Last Name Mike Referring Provider Specialty Nurse Pract itioner Referred Organization [facility] Orth[facility] ped[facility] Referred Provider Gume Macedo Referred Address [address] [facility],[place],[address] Referred Provider Specialty Orthopedic S urgery Referral Priority Routine General Notes Susan Ugarte 04:34:14 PM >received today, sending p2p at this time for scheduling Reason Aqua therapy - evalu ate and treat Diagnosis 1 Pain in right hip (M 25.551) Diagnosis 2 Lumbar pain (M54.50) Referral Organization [facility] Referring Provider First Name Homa Referring Provider Last Name Mike Referring Provider Specialty Nurse Pract itioner Referred Organization [facility] Referred Address [address] [place],[address] Referred Provider Specialty Physical The rapist Referral Priority Routine Reason appt pt would like to discuss hip, back, knee and sciatic pain Diagnosis 1 Other spondylosis wi th radiculopathy, lumbar region (M47.26) Referral Organization [facility] Referring Provider First Name Ayanna Referring Provider Last Name Sakina Referring Provider Specialty Family Prac art Referred Organization [facility] Referred Provider Homa Mckeon Referred Address [address],[address] Referred Provider Specialty Nurse Uli cotto Referral Priority Routine General Notes Nereyda Sanchez 07/16/2023 03:06:01 PM > referral sent p2p. pt understands she will be contacted to schedule this appt Reason appt pt is lu gilliam to see any of the providers consult for eval and treatment of rheumatism/prescribing of Plaquenil Diagnosis 1 Rheumatism, unspecif ied (M79.0) [facility] Referring Provider First Name Ayanna Referring Provider Last Name [facility] Referring Provider Specialty Family Prac art Referred Organization [facility] Referred Provider Esteban Saravia Referred Address [address] [place] [address],[address] Referred Provider Specialty Rheumatology Referral Priority Routine General Notes SanchezFaridaNereyda 05/14/2022 03:07:43 PM > referral faxed with TE message, last visit note and insurance cards. pt understands that she will be contacted to schedule this appt. Reason appt 05/22/22 at 3pm pt needs consult to evaluate right wrist fracture 10 weeks ago, but continued pain in the right hand/wrist Diagnosis 1 Wrist fracture, righ t (S62.101A) Referral Organization [facility] Gabrielain e Scurry Referring Provider First Name Ayanna Referring Provider Last Name Sakina Referring Provider Specialty Family Prac art Referred Organization [facility] Referred Provider Penny Mike Referred Address [address] [facility] [place],[address] Referred Provider Specialty Hand Surgery Referral Priority [...] th radiculopathy, lumbar region (M47.26) Referral Organization [facility] Gabrielain Calsys Scurry Referring Provider First Name Ayanna Referring Provider Last Name Earleabbi Referring Provider Specialty Family Prac art Referred Organization [facility] Referred Provider Anthony Morales Referred Address [address] [place],[address] Referred Provider Specialty Psychiatry, Neurology (Osteopaths only) [...] Diagnosis 1 Leukocytosis (D72.82 9) Referral Organization [facility] Family Gabrielaramila Astudillo Referring Provider First Name Ayanna Referring Provider Last Name Sakina Referring Provider Specialty Family Prac art Referred Organization [facility] Referred Provider Saqib Coleman Referred Address [address] [place], [place],[address] Referred Provider Specialty Hematology/O ncology Referral Priority [...] Knee pain, right (M2 5.561) Referral Organization [facility] Gabrielaramila Astudillo Referring Provider First Name Ayanna Referring Provider Last Name Sakina Referring Provider Specialty [facility] Prac art Referred Organization [facility] Referred Provider Zohaib Akins II Referred Address [address] [place], [place],[address] Referred Provider Specialty Orthopedic S urgery Referral Priority Routine General Notes Nereyda Sanchez 02/06/2022 02:16:49 PM > referral sent p2p. pt understands she will be contacted to schedule this appt. Reason appt pt needs cons ult to discuss change in stool habits, history of colon polyps, hx of IBS Diagnosis 1 Change in stool jacquie yesi (R19.4) Referral Organization [facility] Gabrielaramila Astudillo Referring Provider First Name Ayanna Referring Provider Last Name Sakina Referring Provider Specialty [facility] Prac art Referred Organization [facility] Gastroenterolo gy Referred Provider Ayanna Milner Referred Address [address] [facility] [address] ,[place], [place],[address] Referred Provider Specialty Gastroentero logy Referral Priority [...] radiculopathy Neuropathy Other abnormal blood chemistry 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 Peripheral edema HLD (hyperlipidemia) Hypertension Hypothyroidism Insomnia Chief Complaint Amb Documentation E11.65 E78.5 E03.9 R79.89 N30.90 Amb Documentation review labs/med refill sore throat, congestion, cough Reason for Visit Chronic lymphocytic leukemia Cystitis Diabetes type 2, uncontrolled Lumbar disc disease with radiculopathy Neuropathy Other abnormal blood chemistry Other half-way (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 therapy Peripheral edema HLD (hyperlipidemia) [...] eptember 2023 9:49am Other spondylosis with radiculopathy, [facility] April 05, 2024 9:49am Cystitis May 11, 2024 2 :37pm Diabetes type 2, uncontrolled May 112023 2:37pm Hip pain, left May 11, 2024 2 :37pm Knee pain, left May 11, 2024 2 :37pm Memory changes May 11, 2024 2 :37pm Other abnormal blood chemistry April 142023 2:37pm Other spondylosis with radiculopathy, [facility] May 11, 2024 2:37pm HLD (hyperlipidemia) May [...] anuary 2024 1:16pm Other spondylosis with radiculopathy, [facility] August 11, 2024 1:16pm Chief Complaint Admit [...] 2024 3:4 1pm Other spondylosis with radiculopathy, [facility] November 10, 2024 3:41pm Peripheral edema November [...] 2024 3:4 1pm Other spondylosis with radiculopathy, [facility] November 10, 2024 3:41pm Peripheral edema November [...] 2024 3:4 1pm Other spondylosis with radiculopathy, [facility] November 10, 2024 3:41pm Peripheral edema [...] disease December 16, 2024 2:13pm HLD (hyperlipidemia) Marika 5th, 2025 2:13 pm Vitamin D deficiency December 16, [...] section and content) DATE CREATED AUTHOR 01/06/2021 [facility] DATE CREATED AUTHOR AUTHOR'S ORGANIZ ATION 08/16/2022 [facility] DATE CREATED AUTHOR AUTHOR'S ORGANIZ ATION 11/13/2022 [facility] [place] [facility] DATE CREATED AUTHOR AUTHOR'S ORGANIZ ATION 12/18/2024 [facility] DATE CREATED AUTHOR AUTHOR'S ORGANIZ ATION 01/14/2025 [facility] DATE CREATED AUTHOR AUTHOR'S ORGANIZ ATION 02/01/2025 [facility] DATE CREATED AUTHOR AUTHOR'S ORGANIZ ATION 02/10/2025 [facility] DATE CREATED AUTHOR AUTHOR'S ORGANIZ ATION 03/12/2025 [facility] Source Comments (unrecognize d section and content) In the event this informatio n is protected by the Federal Confidentiality of Alcohol and Drug Abuse Patient Records regulations: The Federal rules restrict any use of the information to criminally investigate or prosecute any alcohol or drug abuse patient.[facility] the event this information is protected by the Federal Confidentiality of Alcohol and Drug Abuse Patient Records regulations: The Federal rules restrict any use of the information to criminally investigate or prosecute any alcohol or drug abuse patient.[facility] the event this information is protected by the Federal Confidentiality of Alcohol and Drug Abuse Patient Records regulations: The Federal rules restrict any use of the information to criminally investigate or prosecute any alcohol or drug abuse patient.[facility] the event this information is protected by the Federal Confidentiality of Alcohol and Drug Abuse Patient Records regulations: The Federal rules restrict any use of the information to criminally investigate or prosecute any alcohol or drug abuse patient.[facility] the event this information is protected by the Federal Confidentiality of Alcohol and Drug Abuse Patient Records regulations: The Federal rules restrict any use of the information to criminally investigate or prosecute any alcohol or drug abuse patient.[facility] the event this information is protected by the Federal Confidentiality of Alcohol and Drug Abuse Patient Records regulations: The Federal rules restrict any use of the information to criminally investigate or prosecute any alcohol or drug abuse patient.[facility] the event this information is protected by the Federal Confidentiality of Alcohol and Drug Abuse Patient Records regulations: The Federal rules restrict any use of the information to criminally investigate or prosecute any alcohol or drug abuse patient.[facility] Hospital[facility] the event this information is protected by the Federal Confidentiality of Alcohol and Drug Abuse Patient Records regulations: The Federal rules restrict any use of the information to criminally investigate or prosecute any alcohol or drug abuse patient.[facility] Hospital[facility] the event this information is protected by the Federal Confidentiality of Alcohol and Drug Abuse Patient Records regulations: The Federal rules restrict any use of the information to criminally investigate or prosecute any alcohol or drug abuse patient.[facility] Hospital[facility] the event this information is protected by the Federal Confidentiality of Alcohol and Drug Abuse Patient Records regulations: The Federal rules restrict any use of the information to criminally investigate or prosecute any alcohol or drug abuse patient.[facility] Hospital[facility] the event this information is protected by the Federal Confidentiality of Alcohol and Drug Abuse Patient Records regulations: The Federal rules restrict any use of the information to criminally investigate or prosecute any alcohol or drug abuse patient.[facility] Hospital[facility] the event this information is protected by the Federal Confidentiality of Alcohol and Drug Abuse Patient Records regulations: The Federal rules restrict any use of the information to criminally investigate or prosecute any alcohol or drug abuse patient.[facility] REASON FOR VISIT (unrecogniz ed section [...] S tart: June 15, 2024 Tri Ag DO Attending Provider Active Start: [...] Galo Max MD Admit Provider, Attending Provider Rolo Penn , RN Other Provider Active Josette Orourke , RN Other Provider Active Estrellita Camejo , RN Other Provider Active Ny Das , RN Other Provider Active Marcie Acosta , ALLYSSA Other Provider Active Laura Wall , ALLYSSA Other Provider Active Yuliana Hale MD Other Provider Active Herman Kevin MD Other Provider Active Kitty Powell RENTAL CAR DELIVERER Other Provider Active Madeline Juarez , DO [...] MD Other Provider Active Yanira Najera , COPPING MACHINE OPERATOR-C Other Provider Active Salas Winslow MD Other [...] MD Other Provider Active Susan Quarles , COPPING MACHINE OPERATOR-C Other Provider Active Gume Macedo , DO Other Provider Active Zohaib Akins II, MD Other Provider Active Team Status: Inactive Member Role Status Dates Ayanna Vicente , DO Primary Care Provider, Family Provid er Active James Redding MD Emergency Provider Active Bertram Garrison MD Admit Provider, Attending Provider Active Team Status: Active Member Role Status Dates Ayanna Vicenet DO Family Provider Active Ayanna Vicente DO Primary Care Provider Active Vessel Specialist Relationship Specialty Start Date End Date Ayanna Vicente, DO [address] [place] [address] PCP - General [facility] Medicine 08/01/11 Ayanna Vicente, DO [address] [place] [address] Referring Family Medicine 10/04/20 Ayanna Vicente, DO [address] [place] [address] Referring Family Medicine 01/09/21 Vessel Specialist Relationship Specialty Start Date End Date Ayanna Vicente, DO [address] [place] [address] PCP - General Family Medicine 08/01/11 Ayanna Vicente, DO [address] [place] [address] Referring Family Medicine 10/04/20 Ayanna Vicente, DO [address] [place] [address] Referring Family Medicine 01/09/21 Vessel Specialist Relationship Specialty Start Date End Date Ayanna Vicente, DO [address] [place] [address] PCP - General Family Medicine 08/01/11 Ayanna Vicente, DO [address] [place] [address] Referring Family Medicine 10/04/20 Ayanna Vicente, DO [address] [place] [address] Referring Family Medicine 01/09/21 Vessel Specialist Relationship Specialty Start Date End Date Ayanna Vicente, DO [address] [place] [address] PCP - General Family Medicine 08/01/11 Ayanna Vicente, DO [address] [place] [address] Referring Family Medicine 10/04/20 Ayanna Vicente, DO [address] [place] [address] Referring Family Medicine 01/09/21 Team Status: Inactive Member Role Status Dates Ayanna Vicente DO Primary Care Provider, Family Provid er Active Santos Lares MD Attending Provider Active Team Status: Inactive Member Role Status Dates Ayanna Vicente DO Primary Care Provider, Family Provid er Active Esvin Dubon NP-C Attending Provider Active Vessel Specialist Relationship Specialty Start Date End Date Ayanna Vicente DO [address] [place] [address] PCP - General Family Medicine 08/01/11 Ayanna Vicente DO [address] [place] [address] Referring Family Medicine 10/04/20 Ayanna Vicente DO [address] [place] [address] Referring Family Medicine 01/09/21 Vessel Specialist Relationship Specialty Start Date End Date Ayanna Vicente MD [address] [place], [place] [id number] PCP - General Family Medicine 12/10/22 Vessel Specialist Relationship Specialty Start Date End Date Ayanna Vicente MD [address] [place] [id number] PCP - General Family Medicine 12/10/22 Team [...] Status: Inactive Member Role Status Dates Ayanna Girvin , DO Primary Care Provide r, Attending Provider Active Start: May 11, 2024 End: May 11, 2024 Team Status: Inactive Member Role Status Dates Ayanna Dubon MD Attending Provider Active S tart: May 12, 2024 End: May 12, 2024 Ayanna Vicente DO Primary Care Provide r, Referring Provider Active Start: May 12, 2024 End: May 12, 2024 Vessel Specialist Relationship Specialty Start Date End Date Ayanna Vicente DO [address] [place] [address] PCP - General Family Medicine 08/01/11 Ayanna Vicente DO [address] [place] [address] Referring Family Medicine 10/04/20 Ayanna Vicente DO [address] [place] [address] Referring Family Medicine 01/09/21 Vessel Specialist Relationship Specialty Start Date End Date Ayanna Vicente DO [address] [place] [address] PCP - General Family Medicine 08/01/11 Ayanna Vicente, [address] [place] [address] Referring Family Medicine 10/04/20 Ayanna Vicente, [address] [place] [address] Referring Family Medicine 01/09/21 Vessel Specialist Relationship Specialty Start Date End Date Ayanna Vicente DO [address] [place] [address] PCP - General Family Medicine 08/01/11 Ayanna Vicente DO [address] [place] [address] Referring Family Medicine 10/04/20 Ayanna Vicente DO [address] [place] [address] Referring Family Medicine 01/09/21 Vessel Specialist Relationship Specialty Start Date End Date Ayanna Vicente MD [address] [place], [place] [phone] PCP - General Family Medicine 12/10/22 Vessel Specialist Relationship Specialty Start Date End Date Ayanna Vicente MD [address] [place], [place] [id number] PCP - General Family Medicine 12/10/22 Vessel Specialist Relationship Specialty Start Date End Date Ayanna Vicente MD [address] [place], [place] [id number] PCP - General Family Medicine 12/10/22 Vessel Specialist Relationship Specialty Start Date End Date Ayanna Vicente MD [address] [place] [address] PCP - General Family Medicine 12/10/22 Vessel Specialist Relationship Specialty Start Date End Date Ayanna Vicente MD [address] [place] [address] PCP - General Family Medicine 12/10/22 Vessel Specialist Relationship Specialty Start Date End Date Ayanna Vicente MD [address] [place] [address] PCP - General Family Medicine 12/10/22 Vessel Specialist Relationship Specialty Start Date End Date Ayanna Vicente MD [address] [place], [place] [id number] PCP - General Family Medicine 12/10/22 Babita Guillaume DO [address] [place] [phone] Referring Physician Neurology 08/09/24 Vessel Specialist Relationship Specialty Start Date End Date Ayanna Vicente MD [address] [place], [place] [address] PCP - General Family Medicine 12/10/22 Babita Guillaume DO [address] [place] [phone] Referring Physician Neurology 08/09/24 Team Status: Active [...] November 10, 2024 End: November 10, 2024 Vessel Specialist Relationship Specialty Start Date End Date Ayanna Vicente DO [address] [place] [address] PCP - General Family Medicine 08/01/11 Ayanna Vicente DO [address] [place] [address] Referring Family Medicine 10/04/20 Ayanna Vicente DO [address] [place] [address] Referring Family Medicine 01/09/21 Vessel Specialist Relationship Specialty Start Date End Date Ayanna Vicente DO [address] [place] [address] PCP - General Family Medicine 08/01/11 Ayanna Vicente DO [address] [place] [address] Referring Family Medicine 10/04/20 Ayanna Vicente DO [address] [place] [address] Referring Family Medicine 01/09/21 Vessel Specialist Relationship Specialty Start Date End Date Ayanna Vicente MD [address] [place], [place] [phone] PCP - General Family Medicine 12/10/22 Babita Guillaume DO [address] [place], [place] [phone] Referring Physician Neurology 08/09/24 Vessel Specialist Relationship Specialty Start Date End Date Ayanna Vicente MD [address] [place], [place] [phone] PCP - General Family Medicine 12/10/22 Babita Guillaume DO [address] [place] [address] Referring Physician Neurology 08/09/24 Goals (unrecognized section [...] BE BASED ON THE PRIMARY CLINICAL RECORDS. [facility]. provides no warranty or guarantee of the accuracy or completeness of information in this document.
--- NOTE | 2025-03-16 08:45 | PM.PRESUREVA ---
History of Present Illness History of Present Illness Chief complaint: failed back syndrome Narrative: Patient presents for presurgical testing. Please see HPI from Dr. Azul dated February 28, 2025. Review of Systems ROS Narrative Please see ROS from Dr. Azul dated February 28, 2025. [facility] Medical History (Updated 03/16/25 @ 08:31 by Zoila Valladares NP) Post laminectomy syndrome ?M96.1 - Postlaminectomy syndrome, not elsewhere classified (ICD-10) Failed back syndrome ?M96.1 - Postlaminectomy syndrome, not elsewhere classified (ICD-10) History of blood transfusion ?Z92.89 - Personal history of other medical treatment (ICD-10) Chronic kidney disease ?N18.9 - Chronic kidney disease, unspecified (ICD-10) Extremity edema ?R60.0 - Localized edema (ICD-10) Activity intolerance ?R68.89 - Other general symptoms and signs (ICD-10) Fibromyalgia ?M79.7 - Fibromyalgia (ICD-10) Irritable bowel syndrome with diarrhea ?K58.0 - Irritable bowel syndrome with diarrhea (ICD-10) Leukocytosis ?D72.829 - Elevated white blood cell count, unspecified (ICD-10) Leukemia ?C95.90 - Leukemia, unspecified not having achieved remission (ICD-10) Lung nodule ?R91.1 - Solitary pulmonary nodule (ICD-10) Migraine ?G43.909 - Migraine, unspecified, not intractable, without status migrainosus (ICD-10) Insomnia ?G47.00 - Insomnia, unspecified (ICD-10) Depression ?F32.A - Depression, unspecified (ICD-10) Hypothyroidism (acquired) ?E03.9 - Hypothyroidism, unspecified (ICD-10) Chronic back pain ?M54.9 - Dorsalgia, unspecified (ICD-10) ?G89.29 - Other chronic pain (ICD-10) Hyperlipidemia ?E78.5 - Hyperlipidemia, unspecified (ICD-10) Anemia ?D64.9 - Anemia, unspecified (ICD-10) Osteoarthritis ?M19.90 - Unspecified osteoarthritis, unspecified site (ICD-10) Chronic lymphocytic leukemia ?C91.10 - Chronic lymphocytic leukemia of B-cell type not having achieved remission (ICD-10) Diabetes ?E11.9 - Type 2 diabetes mellitus without complications (ICD-10) Former smoker ?Z87.891 - Personal history of nicotine dependence (ICD-10) High cholesterol ?E78.00 - Pure hypercholesterolemia, unspecified (ICD-10) Hypertension ?I10 - Essential (primary) hypertension (ICD-10) Surgical History History of radiofrequency ablation (RFA) of nerve of lumbar spine ?Z98.890 - Other specified postprocedural states (ICD-10) S/P epidural steroid injection ?Z92.241 - Personal history of systemic steroid therapy (ICD-10) History of cataract extraction with lens replacement History of appendectomy ?Z90.49 - Acquired absence of other specified parts of digestive tract (ICD-10) H/O colonoscopy ?Z98.890 - Other specified postprocedural states (ICD-10) History of total knee arthroplasty ?Z96.659 - Presence of unspecified artificial knee joint (ICD-10) History of hernia repair ?Z98.890 - Other specified postprocedural states (ICD-10) ?Z87.19 - Personal history of other diseases of the digestive system (ICD-10) S/P lumbar fusion ?Z98.1 - Arthrodesis status (ICD-10) S/P hernia surgery ?Z98.890 - Other specified postprocedural states (ICD-10) ?Z87.19 - Personal history of other diseases of the digestive system (ICD-10) H/O: hysterectomy ?Z90.710 - Acquired absence of both cervix and uterus (ICD-10) Family History Other Family history of Parkinson disease Family history of cancer Family history of hypertension Family history of myocardial infarction Family history of stroke Heart disease Social History Within the past year, how often did you have a drink containing alcohol: monthly or less Smoking status: Never smoker Non-prescribed substance use: denies use Highest level of school completed/degree received: high school graduate Little interest or pleasure in doing things: not at all Feeling down, depressed, or hopeless: not at all Meds Home Medications and Allergies Home Medications ?Medication ?Instructions ?Recorded ?Confirmed ?Type B-complex with vitamin C 1 tab PO DAILY 08/25/23 03/16/25 History aspirin 81 mg tablet,delayed 81 mg PO DAILY 08/25/23 03/16/25 History release atorvastatin 20 mg tablet (Lipitor) 20 mg PO DAILY 08/25/23 03/16/25 History cholecalciferol (vitamin D3) 125 125 mcg PO DAILY 08/25/23 03/16/25 History mcg (5,000 unit) capsule ezetimibe 10 mg tablet (Zetia) 10 mg PO DAILY 08/25/23 03/16/25 History levothyroxine 100 mcg tablet 100 mcg PO DAILY 08/25/23 03/16/25 History (Synthroid) lisinopril 10 mg tablet 10 mg PO DAILY 08/25/23 03/16/25 History multivitamin 1 tab PO DAILY 08/25/23 03/16/25 History oxycodone-acetaminophen 5 mg-325 1 tab PO BID PRN pain 08/25/23 02/21/25 History mg tablet pregabalin 225 mg capsule (Lyrica) 225 mg PO BID 08/25/23 03/16/25 History propranolol 60 mg tablet 60 mg PO DAILY 08/25/23 03/16/25 History triamterene 37.5 1 tab PO DAILY 08/25/23 03/16/25 History mg-hydrochlorothiazide 25 mg tablet (Maxzide-25mg) venlafaxine 75 mg capsule,extended 75 mg PO DAILY 08/25/23 03/16/25 History release 24 hr (Effexor XR) zolpidem 5 mg tablet 5 mg PO DAILY 08/25/23 03/16/25 History insulin glargine 100 unit/mL (3 36 unit subcut QPM 02/09/25 03/16/25 History mL) subcutaneous pen (Lantus Solostar U-100 Insulin) magnesium oxide 400 mg (241.3 mg 400 mg PO DAILY 02/09/25 03/16/25 History magnesium) tablet metformin 1,000 mg tablet 1,000 mg PO BID 03/16/25 03/16/25 History Allergies Allergy/AdvReac Type Severity Reaction Status Date / Time cefpodoxime (From Vantin) Allergy Unknown Unknown Verified 03/16/25 08:24 Exam Narrative Exam Narrative: Constitutional: Awake, alert, comfortable, well-appearing, nontoxic, interactive, vital signs as charted Head: Normocephalic, atraumatic Neck: Supple, normal appearance, normal range of motion, no meningeal signs, no lymphadenopathy Respiratory: No respiratory distress, breath sounds clear Cardiovascular: Regular rate and rhythm, strong and regular heart tones Abdomen: Nontender, normal bowel sounds, soft Skin: No rashes or induration, no lesions, only visible skin inspected Neuro: No neurological deficits, normal sensation Psychiatric: Oriented ?3, normal affect Assessment and Plan Assessment and Plan (1) Post laminectomy syndrome: (2) Failed back syndrome: (3) Chronic back pain: Plan Permanent spinal cord stimulator placement scheduled with Dr. Azul March 21, 2025.
[2025-03-16 11:26] LABS: Hematocrit 39.4 % (36.0-48.0); Hemoglobin 12.8 g/dL (12.0-16.0); Mean Corpuscular HGB Conc 32.5 g/dL (29.9-35.2); Mean Corpuscular Hemoglobin 30.5 pg (26.7-34.0); Mean Corpuscular Volume 93.8 fL (81.0-99.0); Platelet Count 219 10^3/uL (150-450); Red Blood Count 4.20 10^6/uL (4.20-5.40); White Blood Count 18.5 10^3/uL (4.0-11.0)
[2025-03-16 11:45] LABS: Anion Gap 11.8; Blood Urea Nitrogen 28.0 mg/dL (7.0-18.0); Calcium 8.9 mg/dL (8.5-10.1); Carbon Dioxide 30.0 mmol/L (21.0-32.0); Chloride 107 mmol/L (98-107); Estimated GFR (African America 50 (>=60 mL/min/1.73m^2); Estimated GFR (Non-African Ame 41 (>=60 mL/min/1.73m^2); Glucose 144 mg/dL (74-106); Potassium 4.8 mmol/L (3.5-5.1); Sodium 144 mmol/L (136-145)
[2025-03-16 13:53] LABS: Basophils Abs Manual 0.00 10^3/uL (0.00-0.10); Basophils Percent Manual 0.0 % (0.2-2.0); Eosinophils Absolute Manual 0.37 10^3/uL (0.00-0.70); Eosinophils Percent Manual 2.0 % (0.9-7.0); Lymphocytes Absolute Manual 12.95 10^3/uL (1.20-3.80); Lymphocytes Percent Manual 70.0 % (20.5-60.0); Monocytes Absolute Manual 1.11 10^3/uL (0.30-0.80); Monocytes Percent Manual 6.0 % (1.7-12.0); Segmented Neut Absolute Manual 4.07 10^3/uL (1.4-6.5); Segmented Neutrophils % Manual 22.0 (43.0-75.0)
== END 2025-03-16 07:56 | disposition home or self-care (01) ==
LOC: PST 07:56
PROVIDERS: PCP Family Medicine; Visit Provider Anesthesiology
DX: Z01.810 Encounter for preprocedural cardiovascular examination (principal); Z01.818 Encounter for other preprocedural examination; M96.1 Postlaminectomy syndrome, not elsewhere classified
CPT/HCPCS: 80048; 85007; 85027; G0463

== ENCOUNTER 2025-03-21 06:46 | Day surgery (SDC) | payer MEDICARE, SELFPAY ==
[2025-03-16 08:38] VITALS: BP 107/68; PULSE 72; TEMP 36.3; O2SAT 92; BMI 33.9
--- OUTSIDE RECORDS SUMMARY | 2025-03-21 06:51 | XMS_ITS | CCD ---
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 HAND Kitty Villalobos Other Provider DO Madeline Juarez [...] MD Michael Burnett Other Provider BERTA Najera-C Yaniar Mane Other Provider MD Salas Winslow Other [...] Ayanna Vicente DO Primary Care Provider [phone] Ayanna Vicente DO Unavailable Ayanna Vicente DO [...] Care Provider DO Ayanna Vicente Attending Provider [phone] MD Santos Lares Attending Provider PABLO Dubon Attending Provider DR AYANNA VICENTE Primary Care Unavailable LAKSHMIPATHY ., NARENDRANATH Attending Abigail vailable VERNONMIPATHKamari ., NARENDRANATH Admitting Abigail vailable Ayanna Vicente Primary Care Physician [phone] DO Ayanna Vicente Primary Care Provider [phone] DO Ayanna Vicente Attending Provider Junior Butterfield Unavailable Homa Mckeon Unavailable Ayanna Vicente MD Primary Care Provider DO Ayanna Vicente Primary Care Provider DO Ayanna Vicente Attending Provider DO Ayanna Vicente Primary Care Provider DO Ayanna Vicente Attending Provider Ayanna Vicente DO Primary Care Provider Ayanna Vicente DO Unavailable [phone] Ayanna Vicente DO Unavailable DO Ayanna Vicente Primary Care Provider DO Ayanna Vicente Attending Provider Ayanna Vicente DO Primary Care Provider Sakina WISDOM, Ayanna Attending Provider [phone] Aundrea DO, Christopher Unavailable Ayanna Vicente DO Primary Care Provider Ayanna Vicente DO Attending Provider Marker DO, Tri Vasquez Attending Provider [phone] Ayanna Vicente DO Attending Provider AYANNA VICENTE Primary Care Unavailable SELF Referring Unavailable ZOHAIB GERMAN Attending Unavailable AYANNA VICENTE Primary Care Unavailable AYANNA VICENTE Primary Care Unavailable CHAD FREITAS Attending Unavailable ZOHAIB GERMAN Attending Unavailable AYANNA VICENTE Primary Care Unavailable Ayanna Vicente MD Primary Care Provider Aundrea WISDOM Christopher Unavailable [phone] ESVNI DUBON Attending Unavailable JAMES SMITH Attending Unavailable BABITA GUILLAUME Attending Unavailable AYANNA VICENTE Referring Unavailable MOE BETTS Attending Unavailable ROXANE, MOE Hogan Attending Unavailable ENRIQUE HAMMONDS Attending Unavailable BABITA GUILLAUME Referring Unavailable Aundrea WISDOM, Christopher Unavailable Ayanna Vicente DO Attending Provider Sakina WISDOM, Ayanna Primary Care Provider Lesli Arevalo MD Attending Provider [phone] Roxane WISDOM, Moe Attending Provider Ayanna Vicente Admitting Unavailable Ayanna Vicente Attending Unavailable Roxane, Moe Attending Unavailable yAanna Vicente Primary Care Unavailable Itjose, Moe Admitting [...] Attending Provider Ayanna Vicente DO Attending Provider [phone] Giedraitis MD, Andrius Vytautas Attending Unavailable Giedraitis [...] (Antibiotic) Drug Allergy 02-20-20 04 Hives, Swelling [facility] (20 sources) cefpodoxime; Translations: [Vantin] Drug Allergy 12-24-19 16 Eye swelling (finding) [facility] (20 sources) cepahlosporins Propensity to adverse reactions Unknown [employer] Other (20 sources) Cephalosporins (Antibiotic); Translations: [Cephalosporins] Allergy to substance 02-20-20 04 Hives, Swelling, Swelling (morphologic abnormality), Eye swelling (finding), Unknown [facility] Comment on above: Eyes swelled also (20 sources) cefpodoxime; Translations: [CEFPODOXIME] Drug Allergy 02-17-20 19 Unknown, Other [facility] (1 source) Amoxicillin Drug Allergy 12-24-19 16 [facility] (15 sources) Medicinal cephalosporin and acting as antibacterial agent (FN) Drug allergy Unknown [employer] [facility] [employer] Other (2 sources) Bacitracin / Neomycin / Polymyxin B Drug Allergy Unknown [employer] Other (20 sources) Bacitracin; Translations: [bacitracin] Drug Allergy 08-12-19 Unknown Reaction [facility] (20 sources) Neomycin; Translations: [neomycin] Drug Allergy 08-12-19 Unknown Reaction [facility] (20 sources) polymyxin B; Translations: [polymyxin B] Allergy to substance 08-12-19 Unknown Reaction [facility] (1 source) cefpodoxime Drug Allergy 01-28-20 [facility] Repository Medications Current Medications Medication Drug [...] day(s), # 14 tab(s), Refills(s) 0, Pharmacy: [facility] #72, 178, cm, 02/08/25 9:03:00 EDT, [...] urethra 3x per week for UTI prevention, [facility], 178, cm, 02/08/25 9:03:00 EDT, Height/Length [...] urethra 3x per week for UTI prevention, [facility] #72, 178, cm, 08/16/24 9:10:00 EST, Height/Length Dosing, 103, kg, 08/16/24 9:10:00 EST, Weight Dosing 08/16/2024 Active Start: 08-16-2024 Estrace 0.1 mg /g Cream See Instructions, 42.5 gm, Refill(s) 6, apply a pea-sized amount vaginally and around the urethra 3x per week for UTI prevention, [facility] #[facility], 178, cm, 08/16/24 9:10:00 EST, Height/Length [...] incontinence, # 90 tab(s), Refills(s) 3, Pharmacy: [facility] #72, 178, cm, 02/11/23 11:43:00 EDT, [...] 4:43pm docusate sodium 50 mg / sennosides, skilled nursing 8.6 mg oral tablet (20 sources) Start: [...] TAKING Start: 10-26-2020 take 1 tablet by jeniffre th once daily Synthroid 100 mcg Tab [...] 2017 12:00am January 13, 2022 4:47pm sennosides, skilled nursing 8.6 mg oral tablet (3 sources) Start: [...] 03-08-2024 Episodic Other aftercare (6 sources) 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; Translations: [Long-term (current) use of other medications] Onset: 02-06-2022 Resolved: 02-06-2022 Episodic Other aftercare (18 sources) Long-term current use of drug therapy; Translations: [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] 10-21-2023 Episodic Other aftercare (2 sources) H/O: high risk medication; Translations: [Other shelter (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 therapy] 06-17-2024 Episodic Other aftercare (1 source) Drug therapy finding; Translations: [Other shelter (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 therapy] 12-17-2024 Episodic Other aftercare (1 source) 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; Translations: [Type 2 [...] Basophils/100 WBC (Bld) 0.0 % Low 0.2-2.0 [facility] Eosinophils/100 WBC Manual c nt (Bld)Ordered By: Som Giedraitis on 02-09-2025 Eosinophils/100 WBC (Bld) 0.0 % Low 0.9-7.0 [facility] Erythrocyte distribution wid th Auto (RBC) [Ratio]Ordered By: Som Azul on 02-09-2025 Erythrocyte distribution width (RBC) [Ratio] 13.7 % 11.0-15.0 [facility] Estimated glomerular filtrat ion rate (GFR) non- AmericanOrdered By: Som Azul on 02-09-2025 GFR/1.73 sq M.predicted among non-blacks MDRD (S/P/Bld) [Vol rate/Area] 35 mL/min/{1.73_m2} Low >=60 mL/min/1.73 m 2 [facility] Hematocrit Auto (Bld) [Volum e fraction]Ordered By: Som Azul on 02-09-2025 Hematocrit (Bld) [Volume fraction] 36.4 % 36.0-48.0 [facility] Hemoglobin [Mass/volume] in BloodOrdered By: Som Azul on 02-09-2025 Hemoglobin (Bld) [Mass/Vol] 11.6 g/dL Low 12.0-16.0 [facility] Laboratory - Chemistry and C hemistry - challengeOrdered By: Som Azul on 02-09-2025 Calcium [Mass/Vol] 9.0 mg/dL 8.5-10.1 [facility] Chloride [Moles/Vol] 107 mmol/L 98-107 [facility] CO2 [Moles/Vol] 30.8 mmol/L 21.0-32.0 [facility] Creatinine [Mass/Vol] 1.43 mg/dL High 0.55-1.02 [facility] GFR/1.73 sq M.predicted MDRD (S/P/Bld) [Vol rate/Area] 43 mL/min/{1.73_m2} Low >=60 mL/min/1.73 m 2 [facility] Glucose [Mass/Vol] 120 mg/dL High 74-106 [facility] Potassium [Moles/Vol] 5.0 mmol/L 3.5-5.1 [facility] Sodium [Moles/Vol] 143 mmol/L 136-145 [facility] Urea nitrogen [Mass/Vol] 36.0 mg/dL High 7.0-18.0 [facility] Urea nitrogen/Creatinine [Mass ratio] 25.2 mg/mg [facility] Laboratory - Hematology and Cell countsOrdered By: Andrius Molinaraitis on 02-09-2025 Lymphocytes/100 WBC (Bld) 51.0 % 20.5-60.0 [facility] Monocytes/100 WBC (Bld) 5.0 % 1.7-12.0 [facility] Leukocytes [#/volume] correc andreina for nucleated erythrocytes in Blood by Automated counOrdered By: Andrius Giadelaraitis on 02-09-2025 WBC corrected for nucl RBC Auto (Bld) [#/Vol] 19.3 10 3/uL High 4.0-11.0 [facility] MCH Auto (RBC) [Entitic mass ]Ordered By: Andrius Molinaraitis on 02-09-2025 MCH (RBC) [Entitic mass] 30.2 pg 26.7-34.0 [facility] MCHC Auto (RBC) [Mass/Vol]Or dered By: Andrius Giedraitis on 02-09-2025 MCHC (RBC) [Mass/Vol] 31.9 g/dL 29.9-35.2 [facility] MCV Auto (RBC) [Entitic vol] Ordered By: Andrius Giedraitis on 02-09-2025 MCV (RBC) [Entitic vol] 94.8 fL 81.0-99.0 [facility] No Panel InformationOrdered By: Andrius Giedraitis on 02-09-2025 Absolute Basophils (Manual) 0.00 10 3/uL 0.00-0.10 [facility] Eosinophils # (Manual) 0.00 10 3/uL 0.00-0.70 [facility] Lymphocytes # (Manual) 9.84 10 3/uL High 1.20-3.80 [facility] Monocytes # (Manual) 0.96 10 3/uL High 0.30-0.80 [facility] Segmented Neutrophils # (Manual) 8.49 10 3/uL High 1.4-6.5 [facility] Platelet mean volume Auto (B ld) [Entitic vol]Ordered By: Andrius Giedraitis on 02-09-2025 Platelet mean volume (Bld) [Entitic vol] 11.8 fL 9.5-13.5 [facility] Platelets Auto (Bld) [#/Vol] Ordered By: Andrius Giedraitis on 02-09-2025 Platelets (Bld) [#/Vol] 213 10 3/uL 150-450 [facility] RBC Auto (Bld) [#/Vol]Ordere d By: Andrius Giedraitis on 02-09-2025 RBC (Bld) [#/Vol] 3.84 10 6/uL Low 4.20-5.40 [facility] Segmented neutrophils/100 WB C Manual cnt (Bld)Ordered By: Andrius Giedraitis on 02-09-2025 Segmented neutrophils/100 WBC (Bld) 44.0 % 43.0-75.0 [facility] Serum or plasma anion gap de terminationOrdered By: Andrius Giedraitis on 02-09-2025 Anion gap [Moles/Vol] 10.2 mmol/L [facility] Smudge cell detectionOrdered By: Andrius Giedraitis on 02-09-2025 Smudge cells LM Ql (Bld) SEEN [facility] Ambulatory Visit Summaryon 0 02-08-2025 Ambulatory [...] APRN, Sujey Lopez Where: [facility] [place] [id number]- You Need to Schedule the Following Appointments Follow Up with Follow up in Spring When: Medications What How Much When Instructions New ciprofloxacin (Cipro 500 mg Tab) 1 Tablets By Mouth Every 12 hours Duration: 7 Days Pickup at [facility] Unchanged estradiol topical (Estrace 0.1 mg/ g Cream) See instructions apply a pea-sized amount vaginally and around the urethra 3x per week for UTI prevention Pickup at [facility] Unchanged trospium (trospium 20 mg oral [...] Drug Ma (more content not included)... Normal [facility] Urology Office/Clinic Noteon 02-08-2025 Urology Office/Clinic Note [...] (N39.41: Urge incontinence) S/p Botox 100u 08/30/21. [place] sxs only improved for a few weeks or so. Wasn't very impressed w improvement. Does not wish to repeat Botox. Failed Myrbetriq and Oxybutynin previously. TODAY: BBSQ 18 poor control. Using Trospium IR PRN when traveling or going out of the house. Helps a lot. Minimizes side effects by using PRN. Did review [employer] brochure I provided last ov. Came w some questions. Discussed at length today. Pt would like to continue to think about it but is interested in BNE in future. Ordered: Complex E&M Add on G2211 E&M of Est. Patient Moderate 30-39 Min 41362 2. 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 Patient Moderate 30-39 Min 52251 Orders: ciprofloxacin, 500 mg = 1 tab(s), Oral, q12hr, X 7 day(s), # 14 tab(s), Refills(s) 0, Pharmacy: [facility], 178, cm, 02/08/25 9:03:00 EDT, Height/Length Dosing, 105.1, kg, 02/08/25 9:03:00 EDT, Weight Dosing estradiol topical, See Instructions, 42.5 gm, Refill(s) 6, apply a pea-sized amount vaginally and around the urethra 3x per week for UTI prevention, [facility] #[facility], 178, cm, 02/08/25 9:03:00 EDT, Height/Length [...] oral tablet (more content not included)... Normal [facility] Comment on above: Result Comment: Elec tronically Signed By: SUSAN RANDOLPH PA-C\.br\Date and Time Signed: 02/08/25 10:51 EDT [place] barium enemaon 01-19-2025 FL barium enema [place] [address] Fluoroscopy Report Signed Patient: Kathy Washburn MR#: [id number] : 1940 Acct:[id number] Age/Sex: 84 / F ADM Date: 01/19/25 Loc: XD Room: Type: [facility] Attending Dr: Moe Betts DO [...] Arndt M.D. 01/19/2025 2:20 PM Dictation Location: [place] [address] Transcribed By: [facility] 01/19/25 1420 Dictated By: Stanford Arndt DO 01/19/25 1417 Signed By: 01/19/25 1420 Normal [facility] Fluoroscopy reportOrdered By : Stanford Arndt on 01-19-2025 RF Unspecified body region Views [facility] [place] [address] [place] [address] Fluoroscopy Report Signed Patient: Kathy Washburn MR#: [id number] : 1940 Acct:[id number] Age/Sex: 84 / F ADM Date: 5 Loc: XD Room: Type: [facility] Attending Dr: Moe Betts DO [...] Arndt M.D. 01/19/2025 2:20 PM Dictation Location: [place] [address] Transcribed By: [facility] 01/19/25 1420 Dictated By: Stanford Arndt DO 01/19/25 1417 Signed By: 01/19/25 1420 [facility] Erythrocyte distribution wid th Auto (RBC) [Ratio]Ordered By: Lesli Arevalo on 01-17-2025 Erythrocyte distribution width (RBC) [Ratio] 14.3 % 11.0-15.0 [facility] Estimated glomerular filtrat ion rate (GFR) non- AmericanOrdered By: Lesli Arevalo on 01-17-2025 GFR/1.73 sq M.predicted among non-blacks MDRD (S/P/Bld) [Vol rate/Area] 43 mL/min/{1.73_m2} Low >=60 mL/min/1.73 m 2 [facility] Hematocrit Auto (Bld) [Volum e fraction]Ordered By: Lesli Arevalo on 01-17-2025 Hematocrit (Bld) [Volume fraction] 39.4 % 36.0-48.0 [facility] Hemoglobin [Mass/volume] in BloodOrdered By: Lesli Arevalo on 01-17-2025 Hemoglobin (Bld) [Mass/Vol] 12.7 g/dL 12.0-16.0 [facility] Laboratory - Chemistry and C hemistry - challengeOrdered By: Lesli Arevalo on 01-17-2025 Albumin [Mass/Vol] 3.5 g/dL 3.4-5.0 [facility] Calcium [Mass/Vol] 9.0 mg/dL 8.5-10.1 [facility] Chloride [Moles/Vol] 109 mmol/L High 98-107 [facility] CO2 [Moles/Vol] 29.7 mmol/L 21.0-32.0 [facility] Creatinine [Mass/Vol] 1.20 mg/dL High 0.55-1.02 [facility] GFR/1.73 sq M.predicted MDRD (S/P/Bld) [Vol rate/Area] 52 mL/min/{1.73_m2} Low >=60 mL/min/1.73 m 2 [facility] Glucose [Mass/Vol] 99 mg/dL 74-106 [facility] Magnesium [Mass/Vol] 1.5 mg/dL Low 1.8-2.4 [facility] Potassium [Moles/Vol] 4.9 mmol/L 3.5-5.1 [facility] Sodium [Moles/Vol] 146 mmol/L High 136-145 [facility] Urate [Mass/Vol] 6.2 mg/dL High 2.6-6.0 [facility] Urea nitrogen [Mass/Vol] 35.0 mg/dL High 7.0-18.0 [facility] Urea nitrogen/Creatinine [Mass ratio] 29.2 mg/mg [facility] Bilirubin Ql (U) Negative NEGATIVE [facility] Glucose (U) [Mass/Vol] Negative NEGATIVE [facility] Ketones Ql (U) Negative NEGATIVE [facility] pH (U) 6.0 [pH] 5.0-9.0 [facility] Specific gravity (U) [Rel density] 1.025 1.005-1.025 [facility] Urobilinogen Qn (U) 0.2 {Jose'U}/dL 0.2-1.0 [facility] Laboratory - Specimen inform ationOrdered By: Lesli Arevalo on 01-17-2025 Appearance (U) CLEAR CLEAR [facility] Color (U) DK. YELLOW YELLOW [facility] Laboratory - UrinalysisOrder ed By: Lesli Arevalo on 01-17-2025 Leukocyte esterase Test strip Ql (U) Negative NEGATIVE [facility] Mucus Ql (Urine sed) TRACE Abnormal NONE SEEN [facility] Nitrite Ql (U) Negative NEGATIVE [facility] Protein (U) [Mass/Vol] 41.4 mg/dL High <=11.9 [facility] Protein Ql (U) TRACE mg/dL NEG/TRACE [facility] Leukocytes [#/volume] correc andreina for nucleated erythrocytes in Blood by Automated counOrdered By: Lesli Arevalo on 01-17-2025 WBC corrected for nucl RBC Auto (Bld) [#/Vol] 18.8 10 3/uL High 4.0-11.0 [facility] MCH Auto (RBC) [Entitic mass ]Ordered By: Lesli Arevalo on 01-17-2025 MCH (RBC) [Entitic mass] 30.2 pg 26.7-34.0 [facility] MCHC Auto (RBC) [Mass/Vol]Or dered By: Lesli Arevalo on 01-17-2025 MCHC (RBC) [Mass/Vol] 32.2 g/dL 29.9-35.2 [facility] MCV Auto (RBC) [Entitic vol] Ordered By: Lesli Arevalo on 01-17-2025 MCV (RBC) [Entitic vol] 93.6 fL 81.0-99.0 [facility] No Panel InformationOrdered By: Lesli Arevalo on 01-17-2025 25-Hydroxy Vitamin D Total 61.8 ng/mL [facility] Comment on above: <20 ng/mL Vit D defi cient20-<30 ng/mL Vit D [id number] ng/mL Vit D sufficient>100 ng/mL Potential Toxicity Parathyroid Hormone (Intact) 42 pg/mL 15-65 [facility] Comment on above: [facility]formed at: [facility] [address] [id number] Director: Narinder Elam PhD, Phone: [phone] Phosphorus Level 4.1 mg/dL 2.6-4.7 [facility] Urine Bacteria SMALL #/HPF Abnormal NONE SEEN [facility] Urine Occult Blood Negative NEGATIVE [facility] Urine Other Casts NONE SEEN #/LPF NONE SEEN [facility] Urine Other Crystals None Seen #/HPF None Seen [facility] Urine Random Creatinine 119.94 mg/dL 20.0 0-300.0 0 [facility] Urine RBC 0-2 #/HPF 0-2 [facility] Urine Squamous Epithelial Cells RARE #/LPF NONE/RARE [facility] Urine WBC 0-2 #/HPF Abnormal NONE SEEN [facility] Platelet mean volume Auto (B ld) [Entitic vol]Ordered By: Lesli Arevalo on 01-17-2025 Platelet mean volume (Bld) [Entitic vol] 11.4 fL 9.5-13.5 [facility] Platelets Auto (Bld) [#/Vol] Ordered By: Lesli Mickey on 01-17-2025 Platelets (Bld) [#/Vol] 217 10 3/uL 150-450 [facility] RBC Auto (Bld) [#/Vol]Ordere d By: Lesli Mickey on 01-17-2025 RBC (Bld) [#/Vol] 4.21 10 6/uL 4.20-5.40 [facility] Serum or plasma anion gap de terminationOrdered By: Lesli Mickey on 01-17-2025 Anion gap [Moles/Vol] 12.2 mmol/L [facility] Urine protein/creatinine rat ioOrdered By: Lesli Mickey on 01-17-2025 Protein/Creatinine (U) [Ratio] 0.35 [facility] CNOVon 12-17-2024 CNOV Office Visit (INEZ ) KATHY WASHBURN ([id number]) 1940 F Date Time Provider Department 12/17/24 10:20 AM ZOHAIB GERMAN During your visit today, we recorded the following information about you: Temperature Blood pressure Weight Height 65 degrees 112/71 103.6 kg 1.727 m Zohaib German MD 12/17/2024 10:49 AM Signed [facility] Date of Service: 12/17/2024 Patient: Kathy Washburn Medical Record: [id number] Primary Care Physician: Ayanna Vicente DO Last [...] status and she is working with a pheresis specialist. There have not been any new [...] Mixed hyp (more content not included)... Normal [facility] Prakash 11-17-2024 [facility] Telephone ([facility]) MARKUSKATHY Car ([id number]) 1940 F Date Time Provider Department 11/17/24 [...] to be following with Dr Silva @ [facility] as this is closer to home for patient. Roxie requested to talk to medical records regarding having records sent to Dr Silva transferred call To Heather Todd. Susan Rodriguez 11/17/2024 2:36 PM Signed Records faxed to Dr. Silva [phone]. I called Roxie to let her know [...] Status:Closed by LORI RENNER on 11/17/24 Normal [facility] Acanthocytes [Presence] in B lood by Light microscopyon 11-01-2024 Acanthocytes LM Ql (Bld) Acanthocytes [Presence] in Blood by Light microscopy [facility] Acanthocytes LM Ql (Bld) 1+ [facility] Basophils/100 WBC Manual cnt (Bld)on 11-01-2024 Basophils/100 WBC (Bld) Basophils/100 leukocytes in Blood by Manual count 0.2-2.0 [facility] Basophils/100 WBC (Bld) 2.0 % 0.2-2.0 [facility] Cholesterol in LDL Calc [Mas s/Vol]on 11-01-2024 Cholesterol in LDL [Mass/Vol] Cholesterol in LDL [Mass/volume] in Serum or Plasma by calculation [facility] Comment on above: <100 mg/dl [id number] 0-129 mg/dl NEAR OR ABOVE [id number] mg/dl BORDERLINE [id number] mg/dl HIGH>190 mg/dl VERY HIGH Cholesterol in LDL [Mass/Vol] 29.2 mg/dL [facility] Comment on above: <100 mg/dl [id number] 0-129 mg/dl NEAR OR ABOVE [id number] mg/dl BORDERLINE [id number] mg/dl HIGH>190 mg/dl VERY HIGH Cholesterol in VLDL Calc [Ma ss/Vol]on 11-01-2024 Cholesterol in VLDL [Mass/Vol] Cholesterol in VLDL [Mass/volume] in Serum or Plasma by calculation [facility] Cholesterol in VLDL [Mass/Vol] 22.8 mg/dL [facility] Eosinophils/100 WBC Manual c nt (Bld)on 11-01-2024 Eosinophils/100 WBC (Bld) Eosinophils/100 leukocytes in Blood by Manual count 0.9-7.0 [facility] Eosinophils/100 WBC (Bld) 1.0 % 0.9-7.0 [facility] Erythrocyte distribution wid th Auto (RBC) [Ratio]on 11-01-2024 Erythrocyte distribution width (RBC) [Ratio] 14.6 % 11.0-15.0 [facility] Estimated glomerular filtrat ion rate (GFR) non- Americanon 11-01-2024 GFR/1.73 sq M.predicted among non-blacks MDRD (S/P/Bld) [Vol rate/Area] Estimated glomerular filtration rate (GFR) non- Low >=60 mL/min/1.73 m 2 [facility] GFR/1.73 sq M.predicted among non-blacks MDRD (S/P/Bld) [Vol rate/Area] 36 mL/min/{1.73_m2} Low >=60 mL/min/1.73 m 2 [facility] Globulin Calc (S) [Mass/Vol] on 11-01-2024 Globulin (S) [Mass/Vol] Serum globulin measurement by calculation (mass/volume) [facility] Globulin (S) [Mass/Vol] 3.4 g/dL F [facility] Glucose mean value [Mass/vol ume] in Blood Estimated from glycated hemoglobinon 11-01-2024 Average glucose Estimated from glycated hemoglobin (Bld) [Mass/Vol] Glucose mean value [Mass/volume] in Blood Estimated from glycated hemoglobin [facility] Average glucose Estimated from glycated hemoglobin (Bld) [Mass/Vol] 154 mg/dL [facility] Hematocrit Auto (Bld) [Volum e fraction]on 11-01-2024 Hematocrit (Bld) [Volume fraction] 41.5 % 36.0-48.0 [facility] Hemoglobin A1c percentageon 11-01-2024 HbA1c (Bld) [Mass fraction] Hemoglobin A1c percentage High 4.5-6.2 [facility] Comment on above: ADA RECOMMENDED LIMI T 4.0 - 6.0ADA THERAPEUTIC TARGET < 7.0ACTION SUGGESTED> 7.0 HbA1c (Bld) [Mass fraction] 7.0 % High 4.5-6.2 [facility] Comment on above: ADA RECOMMENDED LIMI T 4.0 - 6.0ADA THERAPEUTIC TARGET < 7.0ACTION SUGGESTED> 7.0 Hemoglobin [Mass/volume] in Bloodon 11-01-2024 Hemoglobin (Bld) [Mass/Vol] 13.2 g/dL 12.0-16.0 [facility] Laboratory - Chemistry and C hemistry - challengeon 11-01-2024 Albumin [Mass/Vol] 3.3 g/dL Low 3.4-5.0 [facility] ALP [Catalytic activity/Vol] 89 U/L 46-116 [facility] ALT [Catalytic activity/Vol] 43 U/L 14-59 [facility] AST [Catalytic activity/Vol] 26 U/L 15-37 [facility] Bilirubin [Mass/Vol] 0.3 mg/dL 0.2-1.0 [facility] Calcium [Mass/Vol] 9.0 mg/dL 8.5-10.1 [facility] Chloride [Moles/Vol] 109 mmol/L High 98-107 [facility] Cholesterol [Mass/Vol] 111 mg/dL <=200 [facility] Cholesterol in HDL [Mass/Vol] 59 mg/dL 40-60 [facility] Comment on above: > or =60 mg/dl - LOW CARDIOVASCULAR RISK<40 mg/dl - HIGH CARDIOVASCULAR RISK CO2 [Moles/Vol] 29.4 mmol/L 21.0-32.0 [facility] Creatinine [Mass/Vol] 1.39 mg/dL High 0.55-1.02 [facility] Free T4 [Mass/Vol] 1.14 ng/dL 0.76-1.46 [facility] GFR/1.73 sq M.predicted MDRD (S/P/Bld) [Vol rate/Area] 44 mL/min/{1.73_m2} Low >=60 mL/min/1.73 m 2 [facility] Glucose [Mass/Vol] 88 mg/dL 74-106 [facility] Potassium [Moles/Vol] 5.4 mmol/L High 3.5-5.1 [facility] Protein [Mass/Vol] 6.7 g/dL 6.4-8.2 [facility] Sodium [Moles/Vol] 143 mmol/L 136-145 [facility] Triglyceride [Mass/Vol] 114 mg/dL <=150 F [facility] TSH Qn 0.958 m[IU]/L 0.358-3.740 [facility] Urea nitrogen [Mass/Vol] 44.0 mg/dL High 7.0-18.0 [facility] Urea nitrogen/Creatinine [Mass ratio] 31.7 mg/mg [facility] Laboratory - Hematology and Cell countson 11-01-2024 Band form neutrophils/100 WBC (Bld) 1.0 % 0-5 [facility] Lymphocytes/100 WBC (Bld) 66.0 % High 20.5-60.0 [facility] Monocytes/100 WBC (Bld) 7.0 % 1.7-12.0 F [facility] Leukocytes [#/volume] correc andreina for nucleated erythrocytes in Blood by Automated counon 11-01-2024 WBC corrected for nucl RBC Auto (Bld) [#/Vol] 21.6 10 3/uL High 4.0-11.0 [facility] MCH Auto (RBC) [Entitic mass ]on 11-01-2024 MCH (RBC) [Entitic mass] 30.2 pg 26.7-34.0 [facility] MCHC Auto (RBC) [Mass/Vol]on 11-01-2024 MCHC (RBC) [Mass/Vol] 31.8 g/dL 29.9-35.2 [facility]ir [facility] MCV Auto (RBC) [Entitic vol] on 11-01-2024 MCV (RBC) [Entitic vol] 95.0 fL 81.0-99.0 F [facility] Microalbumin [Mass/volume] i n Urineon 11-01-2024 Albumin DL <= 20 mg/L (U) [Mass/Vol] Microalbumin [Mass/volume] in Urine <=30.0 [facility] Albumin DL <= 20 mg/L (U) [Mass/Vol] 1.3 mg/dL <=30.0 [facility] No Panel Informationon 11-01 Absolute Basophils (Manual) 0.43 10 3/uL High 0.00-0.10 [facility] Band Neutrophils # (Manual) 0.2 10 3/uL 0.0-0.3 [facility] Eosinophils # (Manual) 0.21 10 3/uL 0.00-0.70 [facility] Free Triiodothyronine 1.62 pg/mL Low 2.18-3.98 [facility] Lymphocytes # (Manual) 14.25 10 3/uL High 1.20-3.80 [facility] Monocytes # (Manual) 1.51 10 3/uL High 0.30-0.80 [facility] Segmented Neutrophils # (Manual) 4.96 10 3/uL 1.4-6.5 [facility] Urine Random Creatinine 93.71 mg/dL 20.0 0-300.0 0 [facility] Ovalocyte detectionon 2024 Ovalocytes LM Ql (Bld) Ovalocyte detection [facility] Ovalocytes LM Ql (Bld) 1+ [facility] Platelet mean volume Auto (B ld) [Entitic vol]on 11-01-2024 Platelet mean volume (Bld) [Entitic vol] 11.0 fL 9.5-13.5 [facility] Platelets Auto (Bld) [#/Vol] on 11-01-2024 Platelets (Bld) [#/Vol] 239 10 3/uL 150-450 [facility] Poikilocytosis [Presence] in Blood by Light microscopyon 11-01-2024 Poikilocytosis LM Ql (Bld) Poikilocytosis [Presence] in Blood by Light microscopy [facility] Poikilocytosis LM Ql (Bld) 1+ [facility] RBC Auto (Bld) [#/Vol]on RBC (Bld) [#/Vol] 4.37 10 6/uL 4.20-5.40 [facility] Segmented neutrophils/100 WB C Manual cnt (Bld)on 11-01-2024 Segmented neutrophils/100 WBC (Bld) Manual blood segmented neutrophils/100 leukocytes Low 43.0-75.0 [facility] Segmented neutrophils/100 WBC (Bld) 23.0 % Low 43.0-75.0 [facility] Serum or plasma albumin/glob ulin mass ratioon 11-01-2024 Albumin/Globulin [Mass ratio] Serum or plasma albumin/globulin mass ratio [facility] Albumin/Globulin [Mass ratio] 1.0 {ratio} [facility] Serum or plasma anion gap de terminationon 11-01-2024 Anion gap [Moles/Vol] Serum or plasma an ion gap determination [facility] Anion gap [Moles/Vol] 10.0 mmol/L [facility] Serum or plasma total choles terol/high density lipoprotein (HDL) cholesterol mass faustino 11-01-2024 Cholesterol.total/Choles terol in HDL [Mass ratio] Serum or plasma total cholesterol/high density lipoprotein (HDL) cholesterol mass rat [facility] Comment on above: 3.3 - 4.4 LOW RISK4. 4 - 7.1 AVERAGE RISK7.1 - 11.0 MODERATE RISK>11.0 HIGH RISK Cholesterol.total/Choles terol in HDL [Mass ratio] 1.9 {ratio} [facility] Comment on above: 3.3 - 4.4 LOW RISK4. 4 - 7.1 AVERAGE RISK7.1 - 11.0 MODERATE RISK>11.0 HIGH RISK Urine microalbumin/creatinin e mass ratioon 11-01-2024 Albumin/Creatinine DL <= 20 mg/L (U) [Mass ratio] Urine microalbumin/creatini ne mass ratio 0.0-29.9 [facility] Comment on above: NO MICROALBUMINURIA 0-29 MG/GCLINICAL MICROALBUMINURIA 30-300 MG/GMACROALBUMINURIA >300 MG/G Albumin/Creatinine DL <= 20 mg/L (U) [Mass ratio] 13.8 mg/g 0.0-29.9 [facility] Comment on above: NO MICROALBUMINURIA 0-29 MG/GCLINICAL MICROALBUMINURIA 30-300 MG/GMACROALBUMINURIA >300 MG/G Reminderson 09-15-2024 Reminders Reminders From: Lori Bledsoe To: EU - Administrative; Sent: 02/24/2024 10:44:10 EDT Show up: 06/25/2024 09:43:00 EST Subject: 6 MO F/U Due Date/Time: 08/26/2024 09:43:00 EST Reminder/Recall PT SEEN ON 02/24/2024 BY [facility] [place]. PT WILL NEED A 6 MO F/U. APPT DUE BY 08/26/2024 NO ANSWER Pt is scheduled for 02/14/25. Normal [facility] Laboratory - Chemistry and C hemistry - challengeon 09-03-2024 Bilirubin Ql (U) Negative NEGATIVE [facility] Glucose (U) [Mass/Vol] Negative NEGATIVE [facility] Ketones Ql (U) TRACE mg/dL Abnormal NEGATIVE [facility] pH (U) 5.5 [pH] 5.0-9.0 [facility] Specific gravity (U) [Rel density] 1.025 1.005-1.025 [facility] Urobilinogen Qn (U) 0.2 {Jose'U}/dL 0.2-1.0 [facility] Laboratory - Specimen inform ationon 09-03-2024 Appearance (U) CLEAR CLEAR [facility] Color (U) LT YELLOW YELLOW [facility] Laboratory - Urinalysison Leukocyte esterase Test strip Ql (U) Negative NEGATIVE [facility] Nitrite Ql (U) Negative NEGATIVE [facility] Protein Ql (U) TRACE mg/dL NEG/TRACE [facility] No Panel Informationon 09-03 Urine Occult Blood Negative NEGATIVE [facility] Urine Cultureon 09-03-2024 Bacteria identified Cx Nom (U) 75,000 colonies/ml mixed bacterial skin contaminants 2 Days PERFORMED BY: [place] [address] PATHOLOGIST SUPERVISOR FIREARMS IDA ARMIJO M.D. Normal [facility] Comment on above: Performed By: #### C UU #### [address] Ambulatory Visit Summaryon 0 08-16-2024 Ambulatory [...] SUSAN RANDOLPH PA-C Where: [facility] [address] [place] [address]- You Need to Schedule the Following Appointments Follow Up with JAX PA-C, SUSAN E, URL When: In 6 months Where: [address] [place] [address] Medications What How Much When Instructions New estradiol topical (Estrace 0.1 mg/ g Cream) See instructions Refills: 6 apply a pea-sized amount vaginally and around the urethra 3x per week for UTI prevention Pickup at [facility] [address] Unchanged acetaminophen-oxycodo ne (acetaminophen-oxycod one 325 [...] Discount D (more content not included)... Normal [facility] Urology Office/Clinic Noteon 08-16-2024 Urology Office/Clinic Note [...] will consider cystoscopy w possible UD. Ordered: 92975 Measure Post Void residual urine and/or bladder capacity by US- non-imaging Complex E&M Add on G2211 E&M of Est. Patient Moderate 30-39 Min 23066 Urnls Dip Stick Auto w/o Microscopy POC 02679 2. Urgency incontinence (N39.41: Urge incontinence) S/p Botox 100u 08/30/21. [place] sxs only improved for a few weeks [...] E&M of Est. Patient Moderate 30-39 Min 70311 Orders: estradiol topical, See Instructions, 42.5 gm, Refill(s) 6, apply a pea-sized amount vaginally and around the urethra 3x per week for UTI prevention, [facility] [address], 178, cm, 08/16/24 9:10:00 EST, Height/Length Dosing, 103, kg, 08/16/24 9:10:00 EST, Weight Do... Follow-up With When Contact Information SUSAN RANDOLPH PA-C, URL In 6 months [address] [place] [address] Additional Instructions: Patient Education Antibiotic [...] ne 325 (more content not included)... Normal [facility] Comment on above: Result Comment: Elec tronically Signed By: SUSAN RANDOLPH PA-C\.br\Date and Time Signed: 08/16/24 10:05 EST Appearance of UrineOrdered B y: Ayanna Vicente on 08-10-2024 Appearance (U) Urine appearance Abnormal [facility] Bacteria [Presence] in Urine by AutomatedOrdered By: Ayanna Vicente on 08-10-2024 Bacteria Auto Ql (U) Bacteria [Presence] in Urine by Automated None Seen [facility] Bilirubin Test strip Ql (U)O rdered By: Ayanna Vicente on 08-10-2024 Bilirubin Ql (U) Bilirubin.total [Presence] in Urine by Test strip Negative [facility] Color Auto (U)Ordered By: Vasile Vicente on 08-10-2024 Color (U) Color of Urine by Auto Abnormal Yellow [facility] Dipstick and Microscopicon 0 08-10-2024 Appearance (U) Cloudy Critically abnormal Clear [facility] Comment on above: Order Comment: Name Collection Type:: Clean-Voided Midstream Performed By: #### A DDONUAPLUS, CUU #### [address] Bacteria,Urine None Seen Normal None Seen [facility] Comment on above: Order Comment: Name Collection Type:: Clean-Voided Midstream Performed By: #### A DDONUAPLUS, CUU #### [place] [address] [place] Bilirubin,Urine Negative Normal Negative [facility] Comment on above: Order Comment: Name Collection Type:: Clean-Voided Midstream Performed By: #### A DDONUAPLUS, CUU #### [address] Color (U) Dark-Yellow Critically abnormal Yellow [facility] Comment on above: Order Comment: Name Collection Type:: Clean-Voided Midstream Performed By: #### A DDONUAPLUS, CUU #### [place] [address] [place] Glucose Ql (U) Normal Normal Normal [facility] Comment on above: Order Comment: Name Collection Type:: Clean-Voided Midstream Performed By: #### A DDONUAPLUS, CUU #### [place] [address] [place] Hyaline Casts,Urine 0 [LPF] Normal 0-8 [facility] Comment on above: Order Comment: Name Collection Type:: Clean-Voided Midstream Performed By: #### A DDONUAPLUS, CUU #### [place] [address] [place] Ketones Ql (U) Negative Normal Negative [facility] Comment on above: Order Comment: Name Collection Type:: Clean-Voided Midstream Performed By: #### A DDONUAPLUS, CUU #### [place] [address] [place] Leukocyte esterase Test strip Ql (U) 4+ High Negative [facility] Comment on above: Order Comment: Name Collection Type:: Clean-Voided Midstream Performed By: #### A DDONUAPLUS, CUU #### [address] Mucus,Urine Rare Normal [facility] Comment on above: Order Comment: Name Collection Type:: Clean-Voided Midstream Result Comment: PERF ORMED BY: [place] [address] PATHOLOGIST SUPERVISOR FIREARMS IDA ARMIJO M.D. Performed By: #### A DDONUAPLUS, CUU #### [address] Nitrite,Urine Positive High Negative [facility] Comment on above: Order Comment: Name Collection Type:: Clean-Voided Midstream Performed By: #### A DDONUAPLUS, CUU #### [address] Occult Blood,Urine Negative Normal Negative [facility] Comment on above: Order Comment: Name Collection Type:: Clean-Voided Midstream Result Comment: PERF ORMED BY: [place] [address] PATHOLOGIST SUPERVISOR FIREARMS IDA ARMIJO M.D. Performed By: #### A DDONUAPLUS, CUU #### [address] pH (U) 6.0 [pH] Normal 5.0-9.0 [facility] Comment on above: Order Comment: Name Collection Type:: Clean-Voided Midstream Performed By: #### A DDONUAPLUS, CUU #### [place] [address] [place] Protein (U) [Mass/Vol] 30 mg/dL High Negative [facility] Comment on above: Order Comment: Name Collection Type:: Clean-Voided Midstream Performed By: #### A DDONUAPLUS, CUU #### [address] [place] [address] [place] RBC,Urine 1 [HPF] Normal 0-4 [facility] Comment on above: Order Comment: Name Collection Type:: Clean-Voided Midstream Performed By: #### A DDONUAPLUS, CUU #### [address] Specificy [place],Urine 1.022 Normal 1.001-1.030 [facility] Comment on above: Order Comment: Name Collection Type:: Clean-Voided Midstream Performed By: #### A DDONUAPLUS, CUU #### [address] Squamous Epithelial Cell,Urine 1 [HPF] Normal 0-2 [facility] Comment on above: Order Comment: Name Collection Type:: Clean-Voided Midstream Performed By: #### A DDONUAPLUS, CUU #### [address] Urobilinogen,Urine Normal Normal Normal [facility] Comment on above: Order Comment: Name Collection Type:: Clean-Voided Midstream Performed By: #### A DDONUAPLUS, CUU #### [address] WBC CLUMP, Urine Many High None Seen [facility] Comment on above: Order Comment: Name Collection Type:: Clean-Voided Midstream Performed By: #### A DDONUAPLUS, CUU #### [address] WBC,Urine Innumerable High 0-4 [facility] Comment on above: Order Comment: Name Collection Type:: Clean-Voided Midstream Performed By: #### A DDONUAPLUS, CUU #### [address] Epithelial cells.squamous [# /area] in Urine sediment by Automated countOrdered By: Ayanna Vicente on 08-10-2024 Epithelial cells.squamous Auto (Urine sed) [#/Area] Epithelial cells.squamous [#/area] in Urine sediment by Automated count 0-2 [facility] Erythrocytes [#/area] in Uri ne sediment by Automated countOrdered By: Ayanna Vicente on 08-10-2024 RBC Auto (Urine sed) [#/Area] Erythrocytes [#/area] in Urine sediment by Automated count 0-4 [facility] Glucose [Mass/volume] in Uri ne by Test stripOrdered By: Ayanna Vicente on 08-10-2024 Glucose Test strip (U) [Mass/Vol] Glucose [Mass/volume] in Urine by Test strip Normal [facility] Hemoglobin Test strip Ql (U) Ordered By: Ayanna Vicente on 08-10-2024 Hemoglobin Ql (U) Hemoglobin [Presence ] in Urine by Test strip Negative [facility] Hyaline casts [#/area] in Ur ine sediment by Automated countOrdered By: Ayanna Vicente on 08-10-2024 Hyaline casts Auto (Urine sed) [#/Area] Hyaline casts [#/area] in Urine sediment by Automated count 0-8 [facility] Ketones Test strip Ql (U)Ord ered By: Ayanna Vicente on 08-10-2024 Ketones Ql (U) Ketones [Presence] i n Urine by Test strip Negative [facility] Leukocyte clumps [Presence] in Urine by AutomatedOrdered By: Ayanna Vicente on 08-10-2024 Leukocyte clumps Auto Ql (U) Leukocyte clumps [Presence] in Urine by Automated High None Seen [facility] Leukocyte esterase [Presence ] in Urine by Test stripOrdered By: Ayanna Vicente on 08-10-2024 Leukocyte esterase Test strip Ql (U) Leukocyte esterase [Presence] in Urine by Test strip High Negative [facility] Leukocytes [#/area] in Urine sediment by Automated countOrdered By: Ayanna Vicente on 08-10-2024 WBC Auto (Urine sed) [#/Area] Leukocytes [#/area] in Urine sediment by Automated count High 0-4 [facility] Mucus [Presence] in Urine by AutomatedOrdered By: Ayanna Vicente on 08-10-2024 Mucus Auto Ql (U) Mucus [Presence] in Urine by Automated [facility] Nitrite Test strip Ql (U)Ord ered By: Ayanna Vicente on 08-10-2024 Nitrite Ql (U) Nitrite [Presence] i n Urine by Test strip High Negative [facility] Protein Test strip (U) [Mass /Vol]Ordered By: Ayanna Vicente on 08-10-2024 Protein (U) [Mass/Vol] Protein [Mass/vol ume] in Urine by Test strip High Negative [facility] Specific gravity Test strip (U) [Rel density]Ordered By: Ayanna Vicente on 08-10-2024 Specific gravity (U) [Rel density] Specific gravity of Urine by Test strip 1.001-1.030 [facility] Urine Cultureon 08-10-2024 Bacteria identified Cx Nom (U) ORGANISM: Escherichia coli (O:ESCCOL) [place] Count >100,000 Aerobic CORNELIA Charge (NMIC56) ---- [...] RESISTANT TO ALL B-LACTAM DRUGS. PERFORMED BY: [place] [address] [place], [place] [id number] PATHOLOGIST SUPERVISOR FIREARMS IDA ARMIJO M.D. Normal [facility] Comment on above: Performed By: #### A PERNELL JOINER #### [facility] [address] Urine cultureOrdered By: Aftab Vicente on 08-10-2024 Bacteria identified Cx Nom (U) Escherichia coli Abnormal [facility] Urobilinogen Test strip (U) [Mass/Vol]Ordered By: Ayanna Vicente on 08-10-2024 Urobilinogen (U) [Mass/Vol] Urobilinogen [Mass/volume] in Urine by Test strip Normal [facility] pH Test strip (U)Ordered By: Ayanna Vicente on 08-10-2024 pH (U) pH of Urine by Test strip 5.0-9.0 [facility] ALL THYROID STIM HORMONEon 1 08-23-2023 TSH Qn 2.632 m[IU]/L [facility] Estimated glomerular filtrat ion rate (GFR) non- Americanon 06-22-2024 GFR/1.73 sq M.predicted among non-blacks MDRD (S/P/Bld) [Vol rate/Area] Estimated glomerular filtration rate (GFR) non- Low >=60 mL/min/1.73 m 2 [facility] Laboratory - Chemistry and C hemistry - challengeon 06-22-2024 Calcium [Mass/Vol] 9.2 mg/dL 8.5-10.1 [facility] Chloride [Moles/Vol] 105 mmol/L 98-107 [facility] CO2 [Moles/Vol] 30.0 mmol/L 21.0-32.0 [facility] Cobalamin (Vitamin B12) [Mass/Vol] 721 pg/mL 232-1245 [facility] Comment on above: Performed at: [facility] [address] [id number] Director: Narinder Elam PhD, Phone: [phone] Creatinine [Mass/Vol] 1.36 mg/dL High 0.55-1.02 [facility] GFR/1.73 sq M.predicted MDRD (S/P/Bld) [Vol rate/Area] 45 mL/min/{1.73_m2} Low >=60 mL/min/1.73 m 2 [facility] Glucose [Mass/Vol] 125 mg/dL High 74-106 [facility] Potassium [Moles/Vol] 4.8 mmol/L 3.5-5.1 [facility] Sodium [Moles/Vol] 141 mmol/L 136-145 [facility] TSH Qn 2.632 m[IU]/L 0.358-3.740 [facility] Urea nitrogen [Mass/Vol] 28.0 mg/dL High 7.0-18.0 [facility] Urea nitrogen/Creatinine [Mass ratio] 20.6 mg/mg [facility] Serum or plasma anion gap de terminationon 06-22-2024 Anion gap [Moles/Vol] Serum or plasma an ion gap determination [facility] Basophils/100 WBC Manual cnt (Bld)on 06-15-2024 Basophils/100 WBC (Bld) Basophils/100 leukocytes in Blood by Manual count 0.2-2.0 [facility] Eosinophils/100 WBC Manual c nt (Bld)on 06-15-2024 Eosinophils/100 WBC (Bld) Eosinophils/100 leukocytes in Blood by Manual count 0.9-7.0 [facility] Erythrocyte distribution wid th Auto (RBC) [Ratio]on 06-15-2024 Erythrocyte distribution width (RBC) [Ratio] Erythrocyte distribution width [Ratio] by Automated count 11.0-15.0 [facility] Estimated glomerular filtrat ion rate (GFR) non- Americanon 06-15-2024 GFR/1.73 sq M.predicted among non-blacks MDRD (S/P/Bld) [Vol rate/Area] Estimated glomerular filtration rate (GFR) non- Low >=60 mL/min/1.73 m 2 [facility] Globulin Calc (S) [Mass/Vol] on 06-15-2024 Globulin (S) [Mass/Vol] Serum globulin measurement by calculation (mass/volume) [facility] Hematocrit Auto (Bld) [Volum e fraction]on 06-15-2024 Hematocrit (Bld) [Volume fraction] Hematocrit [Volume Fraction] of Blood by Automated count 36.0-48.0 [facility] Hemoglobin [Mass/volume] in Bloodon 06-15-2024 Hemoglobin (Bld) [Mass/Vol] Hemoglobin [Mass/volume] in Blood 12.0-16.0 [facility] Curt 06-15-2024 L - -------- Specimen: [id number] Received: 06/16/24 Status: JEFFERY Lemon Num: [id number] Spec Type: Impression Subm Dr: Tri Ag DO Tissues: PATHPER Procedures: PATHREVIEW -------- Age/ Patient Sex Location Account Attending Physician -------- Kathy Washburn 83/F [facility] [id number] Tri Ag DO -------- SPEC NUM: [id number] RECD: 06/16/24 STATUS: JEFFERY LEMON NUM: [id number] JESSICA: 06/15/24- SUBM DR: Tri Ag DO ENTERED: 06/16/24-[address]: Angi Astudillo SPEC TYPE: Impression DEPT: [facility] Lance ENTERED BY: [id number] RECV BY: [id number] ORDERED: PATHREVIEW ORDERED: PATHREVIEW Pathologist Review Peripheral blood smear evaluation: - Severe lymphocytosis with atypical lymphocytes and smudges consistent with CLL, flow cytometry if clinically indicated. - Red blood cell and Platelet: Unremarkable. CPT: 07116 Jose Angel Kc MD 06/16/24 -------- -------- Specimen: [id number] Received: 06/16/24 Status: JEFFERY Argenis Num: [id number] Spec Type: Impression Subm Dr: Tri Ag DO Tissues: PATHPER Procedures: PATHREVIEW -------- Patient: Kathy Washburn [id number] (Continued) -------- Signed (signature on file) Jose Angel Kc MD 06/16/24 1635 Normal [facility] Laboratory - Chemistry and C hemistry - challengeon 06-15-2024 Albumin [Mass/Vol] 3.5 g/dL 3.4-5.0 [facility] ALP [Catalytic activity/Vol] 103 U/L 46-116 [facility] ALT [Catalytic activity/Vol] 34 U/L 14-59 [facility] AST [Catalytic activity/Vol] 25 U/L 15-37 [facility] Bilirubin [Mass/Vol] 0.3 mg/dL 0.2-1.0 [facility] Calcium [Mass/Vol] 9.1 mg/dL 8.5-10.1 [facility] Chloride [Moles/Vol] 108 mmol/L High 98-107 [facility] CO2 [Moles/Vol] 28.4 mmol/L 21.0-32.0 [facility] Creatinine [Mass/Vol] 1.42 mg/dL High 0.55-1.02 [facility] GFR/1.73 sq M.predicted MDRD (S/P/Bld) [Vol rate/Area] 43 mL/min/{1.73_m2} Low >=60 mL/min/1.73 m 2 [facility] Glucose [Mass/Vol] 140 mg/dL High 74-106 [facility] Potassium [Moles/Vol] 4.3 mmol/L 3.5-5.1 [facility] Protein [Mass/Vol] 6.9 g/dL 6.4-8.2 [facility] Sodium [Moles/Vol] 143 mmol/L 136-145 [facility] Urea nitrogen [Mass/Vol] 31.0 mg/dL High 7.0-18.0 [facility] Urea nitrogen/Creatinine [Mass ratio] 21.8 mg/mg [facility] Laboratory - Hematology and Cell countson 06-15-2024 Lymphocytes/100 WBC (Bld) 54.0 % 20.5-60.0 [facility] Monocytes/100 WBC (Bld) 0.0 % Low 1.7-12.0 F [facility] Leukocytes [#/volume] correc andreina for nucleated erythrocytes in Blood by Automated counon 06-15-2024 WBC corrected for nucl RBC Auto (Bld) [#/Vol] Leukocytes [#/volume] corrected for nucleated erythrocytes in Blood by Automated coun High 4.0-11.0 [facility] MCH Auto (RBC) [Entitic mass ]on 06-15-2024 MCH (RBC) [Entitic mass] MCH [Entitic ma ss] by Automated count 26.7-34.0 [facility] MCHC Auto (RBC) [Mass/Vol]on 06-15-2024 MCHC (RBC) [Mass/Vol] MCHC [Mass/volume] by Automated count 29.9-35.2 [facility] MCV Auto (RBC) [Entitic vol] on 06-15-2024 MCV (RBC) [Entitic vol] MCV [Entitic vol ume] by Automated count 81.0-99.0 [facility] No Panel Informationon 06-15 Absolute Basophils (Manual) 0.22 10 3/uL High 0.00-0.10 [facility] Add Manual Differential See comment [facility] Comment on above: SEE SCANNED REPORT Eosinophils # (Manual) 0.44 10 3/uL 0.00-0.70 [facility] Lymphocytes # (Manual) 11.88 10 3/uL High 1.20-3.80 [facility] Monocytes # (Manual) 0.00 10 3/uL Low 0.30-0.80 [facility] Reactive Lymphocytes 1.76 [facility] Reactive Lymphocytes 8.0 % [facility] Segmented Neutrophils # (Manual) 7.70 10 3/uL High 1.4-6.5 [facility] Platelet mean volume Auto (B ld) [Entitic vol]on 06-15-2024 Platelet mean volume (Bld) [Entitic vol] Platelet mean volume [Entitic volume] in Blood by Automated count 9.5-13.5 [facility] Platelets Auto (Bld) [#/Vol] on 06-15-2024 Platelets (Bld) [#/Vol] Platelets [#/vol ume] in Blood by Automated count 150-450 [facility] RBC Auto (Bld) [#/Vol]on RBC (Bld) [#/Vol] Erythrocytes [#/volume] in Blood by Automated count 4.20-5.40 [facility] Segmented neutrophils/100 WB C Manual cnt (Bld)on 06-15-2024 Segmented neutrophils/100 WBC (Bld) Manual blood segmented neutrophils/100 leukocytes Low 43.0-75.0 [facility] Serum or plasma albumin/glob ulin mass ratioon 06-15-2024 Albumin/Globulin [Mass ratio] Serum or plasma albumin/globulin mass ratio [facility] Serum or plasma anion gap de terminationon 06-15-2024 Anion gap [Moles/Vol] Serum or plasma an ion gap determination [facility] Smudge cell detectionon Smudge cells LM Ql (Bld) Smudge cell detection [facility] Basophils Auto (Bld) [#/Vol] on 05-26-2024 Basophils (Bld) [#/Vol] Automated basoph il count <0.11 [facility] Basophils/100 WBC Auto (Bld) on 05-26-2024 Basophils/100 WBC (Bld) Automated basophil % [facility] Blood manual differential co mment interpretation narrativeon 05-26-2024 Manual differential comment Himanshu (Bld) [Interp] Blood manual differential comment interpretation narrative [facility] CBC W Auto Differential pane l (Bld)on 05-26-2024 Basophils (Bld) [#/Vol] 0.00 10*3/uL Normal <0.11 [facility] Comment on above: Order Comment: Speci men Type: BLOOD SPECIMEN Ordering Facility: [facility] Address: [address] [place] [address] Performed By: #### 5 7021-8 #### [facility] CLIA [id number] [address] [place] [address] LAB CLIA [id number] [address] [place] [address] [place] Basophils/100 WBC (Bld) 0.0 % Normal [facility] Comment on above: Order Comment: Speci men Type: BLOOD SPECIMEN Ordering Facility: [facility] Address: [address] [place] [address] Performed By: #### 5 7021-8 #### [facility] CLIA [id number] [address] [place] [address] LAB CLIA [id number] [address] [place] [address] [place] Differential cell count method Nom (Bld) Manual Normal [facility] Comment on above: Order Comment: Speci men Type: BLOOD SPECIMEN [facility]ing Facility: [facility] Address: [address] [place] [address] Performed By: #### 5 7021-8 #### [facility] CLIA [id number] [address] [place] [address] LAB CLIA [id number] [address] [place] [address] [place] Eosinophils (Bld) [#/Vol] 0.19 10*3/uL Normal <0.46 [facility] Comment on above: Order Comment: Speci men Type: BLOOD SPECIMEN [facility]ing Facility: [facility] Address: [address] [place] [address] Performed By: #### 5 7021-8 #### [facility] CLIA [id number] [address] [place] [address] LAB CLIA [id number] [address] [place] [address] [place] Eosinophils/100 WBC (Bld) 1.0 % Normal [facility] Comment on above: Order Comment: Speci men Type: BLOOD SPECIMEN Ordering Facility: [facility] Address: [address] [place] [address] Performed By: #### 5 7021-8 #### [facility] CLIA [id number] [address] [place] [address] LAB CLIA [id number] [address] [place] [address] [place] Erythrocyte distribution width (RBC) [Ratio] 14.2 % Normal 11.5-15.0 [facility] Comment on above: Order Comment: Speci men Type: BLOOD SPECIMEN Ordering Facility: [facility] Address: [address] [place] [address] Performed By: #### 5 7021-8 #### [facility] CLIA [id number] [address] [place] [address] LAB CLIA [id number] [address] [place] [address] [place] Hematocrit (Bld) [Volume fraction] 38.4 % Normal 36.0-46.0 [facility] Comment on above: Order Comment: Speci men Type: BLOOD SPECIMEN Ordering Facility: [facility] Address: [address] [place] [address] Performed By: #### 5 7021-8 #### [facility] CLIA [id number] [address] [place] [address] LAB CLIA [id number] [address] [place] [address] [place] Hemoglobin (Bld) [Mass/Vol] 12.7 g/dL Normal 11.5-15.5 [facility] Comment on above: Order Comment: Speci men Type: BLOOD SPECIMEN Ordering Facility: [facility] Address: [address] [place] [address] Performed By: #### 5 7021-8 #### [facility] CLIA [id number] [address] [place] [address] LAB CLIA [id number] [address] [place] [address] [place] Lymphocytes (Bld) [#/Vol] 14.61 10*3/uL High 1.00-4.00 [facility] Comment on above: Order Comment: Speci men Type: BLOOD SPECIMEN Ordering Facility: [facility] Address: [address] [place] [address] Performed By: #### 5 7021-8 #### [facility] CLIA [id number] [address] [place] [address] LAB CLIA [id number] [address] [place] [address] [place] Lymphocytes/100 WBC (Bld) 76.0 % Normal [facility] Comment on above: Order Comment: Speci men Type: BLOOD SPECIMEN Ordering Facility: [facility] Address: [address] [place] [address] Performed By: #### 5 7021-8 #### [facility] CLIA [id number] [address] [place] [address] LAB CLIA [id number] [address] [place] [address] [place] MCH (RBC) [Entitic mass] 30.0 pg Normal 26.0-34.0 [facility] Comment on above: Order Comment: Speci men Type: BLOOD SPECIMEN Ordering Facility: [facility] Address: [address] [place] [address] Performed By: #### 5 7021-8 #### [facility] CLIA [id number] [address] [place] [address] LAB CLIA [id number] [address] [place] [address] [place] MCHC (RBC) [Mass/Vol] 33.1 g/dL Normal 30.5-36.0 [facility] Comment on above: Order Comment: Speci men Type: BLOOD SPECIMEN Ordering Facility: [facility] Address: [address] [place] [address] Performed By: #### 5 7021-8 #### [facility] CLIA [id number] [address] [place] [address] LAB CLIA [id number] [address] [place] [address] [place] MCV (RBC) [Entitic vol] 90.8 fL Normal 80.0-100.0 [facility] Comment on above: Order Comment: Speci men Type: BLOOD SPECIMEN Ordering Facility: [facility] Address: [address] [place] [address] Performed By: #### 5 7021-8 #### [facility] CLIA [id number] [address] [place] [address] LAB CLIA [id number] [address] [place] [address] [place] Monocytes (Bld) [#/Vol] 0.19 10*3/uL Normal <0.87 [facility] Comment on above: Order Comment: Speci men Type: BLOOD SPECIMEN Ordering Facility[facility] Address: [address] [place] [address] Performed By: #### 5 7021-8 #### [facility] CLIA [id number] [address] [place] [address] LAB CLIA [id number] [address] [place] [address] [place] Monocytes/100 WBC (Bld) 1.0 % Normal C [facility] Comment on above: Order Comment: Speci men Type: BLOOD SPECIMEN Ordering Facility[facility] Address: [address] [place] [address] Performed By: #### 5 7021-8 #### [facility] CLIA [id number] [address] [place] [address] LAB CLIA [id number] [address] [place] [address] [place] Neutrophils (Bld) [#/Vol] 4.23 10*3/uL Normal 1.45-7.50 [facility] Comment on above: Order Comment: Speci men Type: BLOOD SPECIMEN Ordering [facility] Address: [address] [place] [address] Performed By: #### 5 7021-8 #### [facility] CLIA [id number] [address] [place] [address] LAB CLIA [id number] [address] [place] [address] [place] Neutrophils/100 WBC (Bld) 22.0 % Normal [facility] Comment on above: Order Comment: Speci men Type: BLOOD SPECIMEN Ordering Facility[facility] Address: [address] [place] [address] Performed By: #### 5 7021-8 #### [facility] CLIA [id number] [address] [place] [address] LAB CLIA [id number] [address] [place] [address] [place] Nucleated RBC (Bld) [#/Vol] 10*3/uL Normal <0.01 [facility] Comment on above: Order Comment: Speci men Type: BLOOD SPECIMEN Ordering Facility[facility] Address: [address] [place] [address] Performed By: #### 5 7021-8 #### [facility] CLIA [id number] [address] [place] [address] LAB CLIA [id number] [address] [place], [place] [address] [place] Nucleated RBC/100 WBC (Bld) [Ratio] 0.0 /100 WBC Normal [facility] Comment on above: Order Comment: Speci men Type: BLOOD SPECIMEN Ordering Facility[facility] Address: [address] [place] [address] Performed By: #### 5 7021-8 #### [facility] CLIA [id number] [address] [place] [address] LAB CLIA [id number] [address] [place] [address] [place] Ovalocytes LM Ql (Bld) Few Normal [facility] Comment on above: Order Comment: Speci men Type: BLOOD SPECIMEN Ordering [facility] Address: [address] [place] [address] Performed By: #### 5 7021-8 #### [facility] CLIA [id number] [address] [place] [address] LAB CLIA [id number] [address] [place] [address] [place] Platelet mean volume (Bld) [Entitic vol] 10.4 fL Normal 9.0-12.7 [facility] Comment on above: Order Comment: Speci men Type: BLOOD SPECIMEN Ordering Facility[facility] Address: [address] [place] [address] Performed By: #### 5 7021-8 #### [facility] CLIA [id number] [address] [place] [address] LAB CLIA [id number] [address] [place] [address] [place] Platelets (Bld) [#/Vol] 244 10*3/uL Normal 150-400 [facility] Comment on above: Order Comment: Speci men Type: BLOOD SPECIMEN Ordering Facility[facility] Address: [address] [place] [address] Performed By: #### 5 7021-8 #### [facility] CLIA [id number] [address] LAB CLIA [id number] [address] [place] [address] [place] Platelets Estimate (Bld) [#/Vol] Adequate Normal [facility] Comment on above: Order Comment: Speci men Type: BLOOD SPECIMEN Order[facility] Address: [address] [place] [address] Performed By: #### 5 7021-8 #### [facility] CLIA [id number] [address] [place] [address] LAB CLIA [id number] [address] [place] [address] [place] Polychromasia LM Ql (Bld) Slight Normal [facility] Comment on above: Order Comment: Speci men Type: BLOOD SPECIMEN Ordering Facility[facility] Address: [address] [place] [address] Performed By: #### 5 7021-8 #### [facility] CLIA [id number] [address] [place] [address] LAB CLIA [id number] [address] [place] [address] [place] RBC (Bld) [#/Vol] 4.23 10*6/uL Normal 3.90-5.20 [facility] Comment on above: Order Comment: Speci men Type: BLOOD SPECIMEN Ordering [facility] Address: [address] [place] [address] Performed By: #### 5 7021-8 #### [facility] CLIA [id number] [address] [place] [address] LAB CLIA [id number] [address] [place] [address] [place] RED CELL MORPH Reviewed: see result s of individual morphologies Normal [facility] Comment on above: Order Comment: Speci men Type: BLOOD SPECIMEN Order[facility] Address: [address] [place] [address] Performed By: #### 5 7021-8 #### [facility] CLIA [id number] [address] [place], [place] [address] [facility] CLIA [id number] [address] [place] [address] [place] WBC (Bld) [#/Vol] 19.22 10*3/uL High 3.70-11.00 [facility] Comment on above: Order Comment: Speci men Type: BLOOD SPECIMEN Ordering Facility[facility] Address: [address] [place] [address] Result Comment: No c lot detected.Results checked and verified. Performed By: #### 5 7021-8 #### [facility] CLIA [id number] [address] [place] [address] LAB CLIA [id number] [address] [place] [address] [place] CNOVSPon 05-26-2024 CNOVSP Visit (SP) Office ([place]) ROBERT WASHBURNRA Car ([id number]) 1940 F Date Time Provider Department 05/26/24 2:00 PM CHAD FREITAS HEMAS[facility] During your visit today, we recorded the following information about you: Temperature Pulse Respiration Blood pressure 97 degrees 70/minute 16/minute 92/51 Weight Height 105.3 kg 1.727 m Chad Freitas MD 05/26/2024 2:41 PM Signed PATIENT NAME: Kathy Washburn [facility] NO.: [id number] ATTENDING PHYSICIAN: Chad Freitas MD DATE OF [...] sweats - Did mammogram last week at [facility]. - Scheduled to see Occupational Rehabilitation Aide PAST MEDICAL HISTORY Diagnosis Date Depression Diabetes [...] Status 05/26 (more content not included)... Normal [facility] metabolic 2000 panelOrdered By: Malka Galvez on 05-26-2024 Albumin [Mass/Vol] 4.1 g/dL 3.9 - 4.9 g/dL [facility] ALP [Catalytic activity/Vol] 107 U/L 34 - 123 U/L [facility] ALT [Catalytic activity/Vol] 21 U/L 7 - 38 U/L [facility] Anion gap [Moles/Vol] 11 mmol/L 8 - 15 mmol/L [facility] AST [Catalytic activity/Vol] 23 U/L 13 - 35 U/L [facility] Bilirubin [Mass/Vol] 0.2 mg/dL 0.2 - 1 .3 mg/dL [facility] Calcium [Mass/Vol] 9.3 mg/dL 8.5 - 10. 2 mg/dL [facility] Chloride [Moles/Vol] 105 mmol/L 98 - 10 7 mmol/L [facility] CO2 [Moles/Vol] 26 mmol/L 22 - 30 mmol/L [facility] Creatinine [Mass/Vol] 1.20 mg/dL High 0.58 - 0.96 mg/dL [facility] GFR/1.73 sq M.predicted among non-blacks MDRD (S/P/Bld) [Vol rate/Area] 46 mL/min/{1.73_m2} Low - PINF [facility] Comment on above: Estimated Glomerular Filtration [...] 231 mg/dL High 74 - 99 mg/dL [facility] Comment on above: The [place] Diabete s Association (ADA) provides guidance for [...] Standards of Medical Care in Diabetes 2016, [place] Diabetes Association. Diabetes Care. 2016.39(Suppl 1). Interpretation and review of laboratory results Abnormal [facility] Potassium [Moles/Vol] 5.3 mmol/L High 3.7 - 5.1 mmol/L [facility] Protein [Mass/Vol] 6.9 g/dL 6.3 - 8.0 g/dL [facility] Sodium [Moles/Vol] 142 mmol/L 136 - 144 mmol/L [facility] Urea nitrogen [Mass/Vol] 36 mg/dL High 7 - 21 mg/dL [facility] Comprehensive metabolic 2000 panelon 05-26-2024 Albumin [Mass/Vol] 4.1 g/dL Normal 3.9-4.9 [facility] Comment on above: Order Comment: Speci men Type: BLOOD SPECIMEN Ordering Facility[facility] Address: [address] [place] [address] Performed By: #### 2 532-0, 79960-0 #### [facility] CLIA [id number] [address] [place] [address] ALP [Catalytic activity/Vol] 107 U/L Normal 34-123 [facility] Comment on above: Order Comment: Speci men Type: BLOOD SPECIMEN Ordering Facility[facility] Address: [address] [place] [address] Performed By: #### 2 532-0, 85031-2 #### [facility] CLIA [id number] [address] [place] [address] ALT [Catalytic activity/Vol] 21 U/L Normal 7-38 [facility] Comment on above: Order Comment: Speci men Type: BLOOD SPECIMEN Ordering Facility[facility] Address: [address] [place] [address] Performed By: #### 2 532-0, #### [facility] CLIA [id number] [address] [place] [address] Anion gap [Moles/Vol] 11 mmol/L Normal 8-15 [facility] Comment on above: Order Comment: Speci men Type: BLOOD SPECIMEN Ordering Facility: [facility] Address: [address] [place] [id number] Performed By: #### 2 532-0, #### [facility] CLIA [id number] [address] [place] [address] AST [Catalytic activity/Vol] 23 U/L Normal 13-35 [facility] Comment on above: Order Comment: Speci men Type: BLOOD SPECIMEN Ordering Facility[facility] Address: [address] [place], [place] [address] Performed By: #### 2 532-0, #### [facility] CLIA [id number] [address] [place] [address] Bilirubin [Mass/Vol] 0.2 mg/dL Normal 0.2-1.3 [facility] Comment on above: Order Comment: Speci men Type: BLOOD SPECIMEN Order[facility] Facility[facility] Address: [address] [place] [address] Performed By: #### 2 532-0, #### [facility] CLIA [id number] [address] [place] [address] Calcium [Mass/Vol] 9.3 mg/dL Normal 8.5-10.2 [facility] Comment on above: Order Comment: Speci men Type: BLOOD SPECIMEN Order[facility] Facility[facility] Address: [address] [place] [address] Performed By: #### 2 532-0, 04981-6 #### [facility] CLIA [id number] [address] [place] [address] Chloride [Moles/Vol] 105 mmol/L Normal 98-107 [facility] Comment on above: Order Comment: Speci men Type: BLOOD SPECIMEN Ordering Facility[facility] Address: [address] [place] [address] Performed By: #### 2 532-0, 01548-7 #### [facility] CLIA [id number] [address] [place] [address] CO2 [Moles/Vol] 26 mmol/L Normal 22-30 [facility] Comment on above: Order Comment: Speci men Type: BLOOD SPECIMEN Order[facility] Facility[facility] Address: [address] [place] [address] Performed By: #### 2 532-0, 46475-5 #### [facility] CLIA [id number] [address] [place] [address] Creatinine [Mass/Vol] 1.20 mg/dL High 0.58-0.96 [facility] Comment on above: Order Comment: Speci men Type: BLOOD SPECIMEN Ordering Facility[facility] Address: [address] [place] [address] Performed By: #### 2 532-0, 42526-9 #### [facility] CLIA [id number] [address] [place] [address] Creatinine and Glomerular filtration rate.predicted panel (S/P/Bld) 46 mL/min/1.73m??? Low >=60 [facility] Comment on above: Order Comment: Speci men Type: BLOOD SPECIMEN Order[facility] Address: [address] [place] [address] Result Comment: Aimee mated Glomerular Filtration Rate [...] actual GFR. Performed By: #### 2 532-0, 99640-8 #### [facility] CLIA [id number] [address] [place] [address] Glucose [Mass/Vol] 231 mg/dL High 74-99 [facility] Comment on above: Order Comment: Speci men Type: BLOOD SPECIMEN Ordering Facility: [facility] Address: [address] [place] [address] Result Comment: The [place] Diabetes Association (ADA) provides guidance for cutoff [...] Standards of Medical Care in Diabetes 2016, [place] Diabetes Association. Diabetes Care. 2016.39(Suppl 1). Performed By: #### 2 532-0, 09674-5 #### [facility] CLIA [id number] [address] [place] [address] Potassium [Moles/Vol] 5.3 mmol/L High 3.7-5.1 [facility] Comment on above: Order Comment: Speci men Type: BLOOD SPECIMEN Ordering Facility[facility] Address: [address] [place] [address] Performed By: #### 2 532-0, 13358-6 #### [facility] CLIA [id number] [address] [place] [address] Protein [Mass/Vol] 6.9 g/dL Normal 6.3-8.0 [facility] Comment on above: Order Comment: Speci men Type: BLOOD SPECIMEN Ordering Facility[facility] Address: [address] [place] [address] Performed By: #### 2 532-0, 07260-9 #### [facility] CLIA [id number] [address] [place] [address] Sodium [Moles/Vol] 142 mmol/L Normal 136-144 [facility] Comment on above: Order Comment: Speci men Type: BLOOD SPECIMEN Ordering Facility[facility] Address: [address] [place] [address] Performed By: #### 2 532-0, 67763-7 #### [facility] CLIA [id number] [address] [place] [address] Urea nitrogen [Mass/Vol] 36 mg/dL High 7-21 [facility] Comment on above: Order Comment: Speci men Type: BLOOD SPECIMEN Ordering Facility[facility] Address: [address] [place] [address] Performed By: #### 2 532-0, 32109-3 #### [facility] CLIA [id number] [address] [place] [address] Eosinophils/100 WBC Auto (Bl d)on 05-26-2024 Eosinophils/100 WBC (Bld) Automated eosinophil % [facility] Erythrocyte distribution wid th Auto (RBC) [Ratio]on 05-26-2024 Erythrocyte distribution width (RBC) [Ratio] Erythrocyte distribution width [Ratio] by Automated count 11.-15.0 [facility] Hematocrit Auto (Bld) [Volum e fraction]on 05-26-2024 Hematocrit (Bld) [Volume fraction] Hematocrit [Volume Fraction] of Blood by Automated count 36.0-46.0 [facility] Hemoglobin [Mass/volume] in Bloodon 05-26-2024 Hemoglobin (Bld) [Mass/Vol] Hemoglobin [Mass/volume] in Blood 11.5-15.5 [facility] LACTATE DEHYDROGENASEon 05-14 LDH [Catalytic activity/Vol] 184 U/L 135 - 214 U/L [facility] LDH SerPl-cCncon 05-26-2024 LDH [Catalytic activity/Vol] 184 U/L Normal 135-214 [facility] Comment on above: Order Comment: Speci men Type: BLOOD SPECIMEN [facility] Facility[facility] Address: [address] [place], [place] [address] Performed By: #### 2 532-0, 93196-4 #### [facility] CLIA [id number] [address] [place] [address] LDH [Catalytic activity/Vol] on 05-26-2024 Interpretation and review of laboratory results Normal [facility] - Chemistry and C hemistry - challengeon 05-26-2024 Albumin [Mass/Vol] 4.1 g/dL 3.9-4.9 [facility] ALP [Catalytic activity/Vol] 107 U/L 34-123 [facility] ALT [Catalytic activity/Vol] 21 U/L 7-38 [facility] AST [Catalytic activity/Vol] 23 U/L 13-35 [facility] Bilirubin [Mass/Vol] 0.2 mg/dL 0.2-1.3 [facility] Calcium [Mass/Vol] 9.3 mg/dL 8.5-10.2 [facility] Chloride [Moles/Vol] 105 mmol/L 98-107 [facility] CO2 [Moles/Vol] 26 mmol/L 22-30 [facility] Creatinine [Mass/Vol] 1.20 mg/dL High 0.58-0.96 [facility] Glucose [Mass/Vol] 231 mg/dL High 74-99 [facility] Comment on above: The [place] Diabete s Association (ADA) provides guidance for [...] Standards of Medical Care in Diabetes 2016, [place] Diabetes Association. Diabetes Care. 2016.39(Suppl 1). LDH [Catalytic activity/Vol] 184 U/L 135-214 [facility] Potassium [Moles/Vol] 5.3 mmol/L High 3.7-5.1 [facility] [facility] Sodium [Moles/Vol] 142 mmol/L 136-144 [facility] Urea nitrogen [Mass/Vol] 36 mg/dL High 7-21 [facility] - Hematology and Cell countson 05-26-2024 Eosinophils (Bld) [#/Vol] 0.19 10*3/uL <0.46 [facility] Leukocytes [#/volume] correc andreina for nucleated erythrocytes in Blood by Automated counon 05-26-2024 WBC corrected for nucl RBC Auto (Bld) [#/Vol] Leukocytes [#/volume] corrected for nucleated erythrocytes in Blood by Automated coun High 3.70-11.00 [facility] Comment on above: No clot detected.Res ults checked and verified. Lymphocytes Auto (Bld) [#/Vo l]on 05-26-2024 Lymphocytes (Bld) [#/Vol] Lymphocytes [#/volume] in Blood by Automated count High 1.00-4.00 [facility] Lymphocytes/100 WBC Auto (Bl d)on 05-26-2024 Lymphocytes/100 WBC (Bld) Lymphocytes/100 leukocytes in Blood by Automated count [facility] MCH Auto (RBC) [Entitic mass ]on 05-26-2024 MCH (RBC) [Entitic mass] MCH [Entitic ma ss] by Automated count 26.0-34.0 [facility] MCHC Auto (RBC) [Mass/Vol]on 05-26-2024 MCHC (RBC) [Mass/Vol] MCHC [Mass/volume] by Automated count 30.5-36.0 [facility] MCV Auto (RBC) [Entitic vol] on 05-26-2024 MCV (RBC) [Entitic vol] MCV [Entitic vol ume] by Automated count 80.0-100.0 [facility] Monocytes Auto (Bld) [#/Vol] on 05-26-2024 Monocytes (Bld) [#/Vol] Automated blood monocyte count <0.87 [facility] Monocytes/100 WBC Auto (Bld) on 05-26-2024 Monocytes/100 WBC (Bld) Automated monocyte % [facility] Neutrophils Auto (Bld) [#/Vo l]on 05-26-2024 Neutrophils (Bld) [#/Vol] Neutrophils [#/volume] in Blood by Automated count 1.45-7.50 [facility] Neutrophils/100 WBC Auto (Bl d)on 05-26-2024 Neutrophils/100 WBC (Bld) Automated neutrophil % [facility] No Panel Informationon 05-26 Estimated GFR (CKD-EPI) 46 mL/min/1.73m??? Low >=60 [facility] Comment on above: Estimated Glomerular Filtration [...] Reviewed: see resu lts of individual morphologies [facility] Nucleated RBC Auto (Bld) [#/ Vol]on 05-26-2024 Nucleated RBC (Bld) [#/Vol] Nucleated erythrocytes [#/volume] in Blood by Automated count <0.01 [facility] Nucleated erythrocytes [Pres ence] in Blood by Automated counton 05-26-2024 Nucleated RBC Auto Ql (Bld) Nucleated erythrocytes [Presence] in Blood by Automated count [facility] Ovalocyte detectionon 2023 Ovalocytes LM Ql (Bld) Ovalocyte detection [facility] Platelet adequacy [Presence] in Blood by Light microscopyon 05-26-2024 Platelets LM Ql (Bld) Platelet adequacy [Presence] in Blood by Light microscopy [facility] Platelet mean volume Auto (B ld) [Entitic vol]on 05-26-2024 Platelet mean volume (Bld) [Entitic vol] Platelet mean volume [Entitic volume] in Blood by Automated count 9.0-12.7 [facility] Platelets Auto (Bld) [#/Vol] on 05-26-2024 Platelets (Bld) [#/Vol] Platelets [#/vol ume] in Blood by Automated count 150-400 [facility] Polychromasia [Presence] in Blood by Light microscopyon 05-26-2024 Polychromasia LM Ql (Bld) Polychromasia [Presence] in Blood by Light microscopy [facility] Protein [Mass/volume] in Ser um or Plasmaon 05-26-2024 Protein [Mass/Vol] Protein [Mass/volume ] in Serum or Plasma 6.3-8.0 [facility] RBC Auto (Bld) [#/Vol]on RBC (Bld) [#/Vol] Erythrocytes [#/volume] in Blood by Automated count 3.90-5.20 [facility] Serum or plasma anion gap de terminationon 05-26-2024 Anion gap [Moles/Vol] Serum or plasma an ion gap determination 8-15 [facility] X-ray reportOrdered By: Teddy Arndt on 05-26-2024 Study report [place] [address] XRay Report Signed Patient: Kathy Washburn MR#: [id number] : 1940 Acct:[id number] Age/Sex: 83 / F ADM Date: 4 Loc: XD Room: Type: [facility] Attending Dr: Ayanna Vicnete DO Copies to: Ayanna Vicente DO~ Ordering Provider: Ayanna Vicente DO Date of Service: 05/26/24 XR/XR hip LT min 2V(w/wo pelvis)*: M25.552 - Pain in left hip ([id number]) XR/XR knee LT 4V*: M25.552 - Pain [...] 4:55 PM Dictation Location: RADIO--01 Transcribed By: [facility] 05/26/241654 Dictated By: Stanford Arndt DO 05/26/241652 Signed By: 05/26/241654 [facility] XR knee LT 4V*on 05-26-2024 XR knee LT 4V* [place] [address] XRay Report Signed Patient: Kathy Washburn MR#: [id number] : 1940 Acct:[id number] Age/Sex: 83 / F ADM Date: 05/26/24 Loc: XD Room: Type: [facility] Attending Dr: Ayanna Vicente DO Copies to: Ayanna Vicente DO Ordering Provider: Ayanna Vicente DO Date of Service: 05/26/24 XR/XR hip LT min 2V(w/wo pelvis)*: M25.552 - Pain in left hip ([id number]) XR/XR knee LT 4V*: M25.552 - Pain [...] Stanford Arndt M.D.05/26/2024 4:55 PM Dictation Location: [facility] Transcribed By: [facility] 05/26/241654 Dictated By: Stanford Arndt DO 05/26/241652 Signed By: 05/26/241654 Normal [facility] MM screening mammo BI w/CADo n 05-18-2024 MM screening mammo BI w/CAD [facility] [address] Mammography Report Signed Patient: Kathy Washburn MR#: [id number] : 1940 Acct:[id number] Age/Sex: 83 / F ADM Date: 05/18/24 Loc: [place] Room: Type: [facility] Attending Dr: Ayanna Vicente DO [...] Stanford Arndt M.D.05/18/2024 3:23 PM Dictation Location: [facility] Transcribed By: [facility] 05/18/24 1523 Dictated By: Stanford Arndt DO 05/18/24 1459 Signed By: 05/18/24 1523 Normal [facility] CNOVon 05-17-2024 CNOV Office Visit (INEZ ) KATHY WASHBURN ([id number]) 1940 F Date Time Provider Department 05/17/24 1:00 PM ZOHAIB GERMAN During your visit today, we recorded the following information about you: Pulse Blood pressure Weight Height 62/minute 117/75 103.4 kg 1.727 m Zohaib German MD 05/17/2024 1:34 PM Signed [facility] Date of Service: 05/17/2024 Patient: Kathy Washburn Medical Record: [id number] Primary Care Physician: Ayanna Vicente DO Last Rheumatology visit: None at [facility] Referring Provider: No referring provider defined [...] Use Topics (more content not included)... Normal [facility] A1C with Estimated Average G sagrarion 05-06-2024 Glucose [Mass/Vol] 194 mg/dL Normal [facility] Comment on above: Result Comment: PERF ORMED BY: [facility] [address] [place] [address] PATHOLOGIST SUPERVISOR [employer]AR[employer] MATHIEU RASCON M.D. Performed By: #### L IPID, A1C [facility] eA, T4F, URMACRERAT, TSH3, CUU, CMP, ADDONUAPLUS, T3T ####[facility] [address] Alanine aminotransferase [En zymatic activity/volume] in Serum or PlasmaOrdered By: Ayanna Vicente on 05-06-2024 ALT [Catalytic activity/Vol] 25 U/L Normal [facility] Comment on above: Performed By: #### L IPID, A1C WT eA, T4F, URMACRERAT, TSH3, CUU, CMP, ADDONUAPLUS, T3T #### [facility] [address] ALT [Catalytic activity/Vol] Alanine aminotransferase [Enzymatic activity/volume] in Serum or Plasma [facility] Albumin [Mass/volume] in Ser um or Plasma by Bromocresol green (BCG) dye binding methoOrdered By: Ayanna Vicente on 05-06-2024 Albumin BCG dye [Mass/Vol] 4.1 g/dL 3.5-5.7 [facility] Albumin BCG dye [Mass/Vol] Albumin [Mass/volume] in Serum or Plasma by Bromocresol green (BCG) dye binding metho 3.5-5.7 [facility] Alkaline phosphatase [Enzyma tic activity/volume] in Serum or PlasmaOrdered By: Ayanna Vicente on 05-06-2024 ALP [Catalytic activity/Vol] 89 U/L Normal 34-104 [facility] Comment on above: Performed By: #### L IPID, A1C WTH eA, T4F, URMACRERAT, TSH3, CUU, CMP, ADDONUAPLUS, T3T #### [facility] [address] [place] [id number] [place] ALP [Catalytic activity/Vol] Alkaline phosphatase [Enzymatic activity/volume] in Serum or Plasma 34-104 [facility] Appearance of UrineOrdered B y: Ayanna Vicente on 05-06-2024 Appearance (U) Urine appearance [facility] Aspartate aminotransferase [ Enzymatic activity/volume] in Serum or PlasmaOrdered By: Ayanna Vicente on 05-06-2024 AST [Catalytic activity/Vol] 23 U/L Normal 1339 [facility] Comment on above: Performed By: #### L IPID, A1C WT eA, T4F, URMACRERAT, TSH3, CUU, CMP, ADDONUAPLUS, T3T #### [facility] [address] [place] [address] [place] AST [Catalytic activity/Vol] Aspartate aminotransferase [Enzymatic activity/volume] in Serum or Plasma 1339 [facility] Bacteria [Presence] in Urine sediment by Light microscopyOrdered By: Ayanna Vicente on 05-06-2024 Bacteria LM Ql (Urine sed) 4+ [HPF] High None Seen [facility] Bacteria LM Ql (Urine sed) Bacteria [Presence] in Urine sediment by Light microscopy High None Seen [facility] Bilirubin Test strip Ql (U)O rdered By: Ayanna Vicente on 05-06-2024 Bilirubin Ql (U) Negative Negative [facility] Bilirubin Ql (U) Bilirubin.total [Presence] in Urine by Test strip Negative [facility] Bilirubin.total [Mass/volume ] in Serum or PlasmaOrdered By: Ayanna Vicente on 05-06-2024 Bilirubin [Mass/Vol] 0.4 mg/dL Normal 0.3-1.0 [facility] Comment on above: Performed By: #### L IPID, A1C WTH eA, T4F, URMACRERAT, TSH3, CUU, CMP, ADDONUAPLUS, T3T #### [facility] [address] [place] [id number] [place] Bilirubin [Mass/Vol] Bilirubin.total [Mass/volume] in Serum or Plasma 0.3-1.0 [facility] Blood estimated average gluc ose determination by estimation from glycated hemoglobinOrdered By: Ayanna Vicente on 05-06-2024 Average glucose Estimated from glycated hemoglobin (Bld) [Mass/Vol] Glucose mean value [Mass/volume] in Blood Estimated from glycated hemoglobin [facility] Calcium [Mass/volume] in Ser um or PlasmaOrdered By: Ayanna Vicente on 05-06-2024 Calcium [Mass/Vol] 9.6 mg/dL Normal 8.6-10.3 [facility] Comment on above: Performed By: #### L IPID, A1C WTH eA, T4F, URMACRERAT, TSH3, CUU, CMP, ADDONUAPLUS, T3T #### [facility] [address] Calcium [Mass/Vol] Calcium [Mass/volume ] in Serum or Plasma 8.6-10.3 [facility] Carbon dioxide, total [Moles /volume] in Serum or PlasmaOrdered By: Ayanna Vicente on 05-06-2024 CO2 [Moles/Vol] 30.2 mmol/L Normal 21.0-31.0 [facility] Comment on above: Performed By: #### L IPID, A1C WTH eA, T4F, URMACRERAT, TSH3, CUU, CMP, ADDONUAPLUS, T3T #### [facility] [address] [place] [address] [place] CO2 [Moles/Vol] Carbon dioxide, tota l [Moles/volume] in Serum or Plasma 21.0-31.0 [facility] Chloride [Moles/volume] in S ebony or PlasmaOrdered By: Ayanna Vicente on 05-06-2024 Chloride [Moles/Vol] 105 mmol/L Normal 98-107 [facility] Comment on above: Performed By: #### L IPID, A1C WTH eA, T4F, URMACRERAT, TSH3, CUU, CMP, ADDONUAPLUS, T3T #### [facility] [address] [place] [id number] [place] Chloride [Moles/Vol] Chloride [Moles/volume] in Serum or Plasma 98-107 [facility] Cholesterol [Mass/volume] in Serum or PlasmaOrdered By: Ayanna Vicente on 05-06-2024 Cholesterol [Mass/Vol] 134 mg/dL Low 140-200 [facility] Comment on above: Chol less than 200 m g/dl low riskChol 201-239 mg/dl borderline riskChol 240 mg/dl and greater high risk Result Comment: Chol less than 200 mg/dl low risk Chol 201-239 mg/dl borderline risk Chol 240 mg/dl and greater high risk Performed By: #### L IPID, A1C WTH eA, T4F, URMACRERAT, TSH3, CUU, CMP, ADDONUAPLUS, T3T #### [address] Cholesterol [Mass/Vol] Cholesterol [Mass/volume] in Serum or Plasma Low 140-200 [facility] Comment on above: Chol less than 200 m g/dl low riskChol 201-239 mg/dl borderline riskChol 240 mg/dl and greater high risk Cholesterol in HDL [Mass/vol ume] in Serum or PlasmaOrdered By: Ayanna Vicente on 05-06-2024 Cholesterol in HDL [Mass/Vol] Serum or plasma high density lipoprotein (HDL) cholesterol measurement 23- [facility] Comment on above: HDL CHOL ATP-III CLA SSIFICATION Cardiovascular RiskHDL > or equal to 60 mg/dL LOWHDL < 40 mg/dL HIGH Cholesterol in LDL Calc [Mas s/Vol]Ordered By: Ayanna Vicente on 05-06-2024 Cholesterol in LDL [Mass/Vol] 46 mg/dL 0-100 [facility] Comment on above: LDL ATP III CLASSIFI CATIONLDL less than 100 mg/dL OptimalLDL 100-129 mg/dL Near or above optimalLDL 130-159 mg/dL Borderline highLDL 160-189 mg/dL HighLDL greater than 189 mg/dL Very high Cholesterol in LDL [Mass/Vol] Cholesterol in LDL [Mass/volume] in Serum or Plasma by calculation 0-100 [facility] Comment on above: LDL ATP III CLASSIFI CATIONLDL less than 100 mg/dL OptimalLDL 100-129 mg/dL Near or above optimalLDL 130-159 mg/dL Borderline highLDL 160-189 mg/dL HighLDL greater than 189 mg/dL Very high Cholesterol in VLDL Calc [Ma ss/Vol]Ordered By: Ayanna Vicente on 05-06-2024 Cholesterol in VLDL [Mass/Vol] 47 mg/dL [facility] Cholesterol in VLDL [Mass/Vol] Cholesterol in VLDL [Mass/volume] in Serum or Plasma by calculation [facility] Color Auto (U)Ordered By: Vasile Vicente on 05-06-2024 Color (U) Color of Urine by Auto Yellow [facility] Color of Urine by AutoOrdere d By: Ayanna Vicente on 05-06-2024 Color (U) Yellow Normal Yellow [facility] Comment on above: Order Comment: Name Collection Type:: Clean-Voided Midstream Performed By: #### L IPID, A1C WTH eA, T4F, URMACRERAT, TSH3, CUU, CMP, ADDONUAPLUS, T3T #### [facility] [address] Comprehensive Metabolic Pane curt 05-06-2024 Albumin [Mass/Vol] 4.1 g/dL Normal 3.5-5.7 [facility] Comment on above: Performed By: #### L IPID, A1C WTH eA, T4F, URMACRERAT, TSH3, CUU, CMP, ADDONUAPLUS, T3T #### [facility] [address] [place] [address] GFR/1.73 sq M.predicted MDRD (S/P/Bld) [Vol rate/Area] 51.605 mL/min/{1.73_m2} Normal [facility] Comment on above: Performed By: #### L IPID, A1C WTH eA, T4F, URMACRERAT, TSH3, CUU, CMP, ADDONUAPLUS, T3T #### [facility] [address] Creatinine [Mass/volume] in Serum or PlasmaOrdered By: Ayanna Vicente on 05-06-2024 Creatinine [Mass/Vol] 1.08 mg/dL Normal 0.60-1.20 [facility] Comment on above: Performed By: #### L IPID, A1C WTH eA, T4F, URMACRERAT, TSH3, CUU, CMP, ADDONUAPLUS, T3T #### [facility] [address] Creatinine [Mass/Vol] Creatinine [Mass/volume] in Serum or Plasma 0.60-1.20 [facility] Creatinine [Mass/volume] in UrineOrdered By: Ayanna Vicente on 05-06-2024 Creatinine (U) [Mass/Vol] 93.00 mg/dL [facility] Comment on above: No reference range e stablished Creatinine (U) [Mass/Vol] Creatinine [Mass/volume] in Urine [facility] Comment on above: No reference range e stablished Dipstick and Microscopicon 1 Bacteria,Urine 4+ High None Seen [facility] Comment on above: Order Comment: Name Collection Type:: Clean-Voided Midstream Performed By: #### L IPID, A1C WTH eA, T4F, URMACRERAT, TSH3, CUU, CMP, ADDONUAPLUS, T3T #### [facility] [address] [place] [id number] [place] Bilirubin,Urine Negative Normal Negative [facility] Comment on above: Order Comment: Name Collection Type:: Clean-Voided Midstream Performed By: #### L IPID, A1C WTH eA, T4F, URMACRERAT, TSH3, CUU, CMP, ADDONUAPLUS, T3T #### [facility] [address] [place] [address] [place] Glucose Ql (U) Normal Normal Normal [facility] Comment on above: Order Comment: Name Collection Type:: Clean-Voided Midstream Performed By: #### L IPID, A1C WTH eA, T4F, URMACRERAT, TSH3, CUU, CMP, ADDONUAPLUS, T3T #### [facility] [address] [place] [id number] [place] Hyaline Casts,Urine 5-9 High 0-1 [facility] Comment on above: Order Comment: Name Collection Type:: Clean-Voided Midstream Result Comment: PERF ORMED BY: [place] [address] PATHOLOGIST SUPERVISOR FIREARMS MATHIEU RASCON M.D. Performed By: #### L IPID, A1C WTH eA, T4F, URMACRERAT, TSH3, CUU, CMP, ADDONUAPLUS, T3T #### [place] [address] [place] Nitrite,Urine Negative Normal Negative [facility] Comment on above: Order Comment: Name Collection Type:: Clean-Voided Midstream Performed By: #### L IPID, A1C WTH eA, T4F, URMACRERAT, TSH3, CUU, CMP, ADDONUAPLUS, T3T #### [address] Occult Blood,Urine Negative Normal Negative [facility] Comment on above: Order Comment: Name Collection Type:: Clean-Voided Midstream Performed By: #### L IPID, A1C WTH eA, T4F, URMACRERAT, TSH3, CUU, CMP, ADDONUAPLUS, T3T #### [place] [address] [place] Protein,Urine Trace High Negative [facility] Comment on above: Order Comment: Name Collection Type:: Clean-Voided Midstream Performed By: #### L IPID, A1C WTH eA, T4F, URMACRERAT, TSH3, CUU, CMP, ADDONUAPLUS, T3T #### [place] [address] [place] RBC LM.HPF (Urine sed) [#/Area] 0 /[HPF] Normal 0-4 [facility] Comment on above: Order Comment: Name Collection Type:: Clean-Voided Midstream Performed By: #### L IPID, A1C WTH eA, T4F, URMACRERAT, TSH3, CUU, CMP, ADDONUAPLUS, T3T #### [address] Specificy [place],Urine 1.020 Normal 1.001-1.030 [facility] Comment on above: Order Comment: Name Collection Type:: Clean-Voided Midstream Performed By: #### L IPID, A1C WTH eA, T4F, URMACRERAT, TSH3, CUU, CMP, ADDONUAPLUS, T3T #### [facility] [address] Squamous Epithelial Cell,Urine 3-4 High 0-2 [facility] Comment on above: Order Comment: Name Collection Type:: Clean-Voided Midstream Performed By: #### L IPID, A1C WTH eA, T4F, URMACRERAT, TSH3, CUU, CMP, ADDONUAPLUS, T3T #### [address] Urobilinogen,Urine Normal Normal Normal [facility] Comment on above: Order Comment: Name Collection Type:: Clean-Voided Midstream Performed By: #### L IPID, A1C WTH eA, T4F, URMACRERAT, TSH3, CUU, CMP, ADDONUAPLUS, T3T #### [address] WBC,Urine 10-19 High 0-4 [facility] Comment on above: Order Comment: Name Collection Type:: Clean-Voided Midstream Performed By: #### L IPID, A1C WTH eA, T4F, URMACRERAT, TSH3, CUU, CMP, ADDONUAPLUS, T3T #### [address] Epithelial cells.squamous [# /area] in Urine sediment by Microscopy high power fieldOrdered By: Ayanna Vicente on 05-06-2024 Epithelial cells.squamous LM.HPF (Urine sed) [#/Area] 3-4 [HPF] High 0-2 [facility] Epithelial cells.squamous LM.HPF (Urine sed) [#/Area] Epithelial cells.squamous [#/area] in Urine sediment by Microscopy high power field High 0-2 [facility] Erythrocytes [#/area] in Uri ne sediment by Microscopy high power fieldOrdered By: Ayanna Vicente on 05-06-2024 RBC LM.HPF (Urine sed) [#/Area] 0-1 [HPF] 0-4 [facility] RBC LM.HPF (Urine sed) [#/Area] Erythrocytes [#/area] in Urine sediment by Microscopy high power field 0-4 [facility] Globulin Calc (S) [Mass/Vol] Ordered By: Ayanna Vicente on 05-06-2024 Globulin (S) [Mass/Vol] Serum globulin measurement by calculation (mass/volume) [facility] Glucose [Mass/volume] in Ser um or PlasmaOrdered By: Ayanna Vicente on 05-06-2024 Glucose [Mass/Vol] 129 mg/dL High 70-100 [facility] Comment on above: ADA recommended refe rence rangeRandom Glucose Reference Range is dependent on time and content of last meal. Glucose of more than 200 mg/dL in a nonstressed, ambulatory subject supports the diagnosis of Diabetes Mellitus. Result Comment: [place] om Glucose Reference Range is dependent on time and content of last meal. Glucose of more than 200 mg/dL in a nonstressed, ambulatory subject supports the diagnosis of Diabetes Mellitus. ADA recommended reference range Performed By: #### L IPID, A1C WTH eA, T4F, URMACRERAT, TSH3, CUU, CMP, ADDONUAPLUS, T3T #### [address] Glucose [Mass/Vol] Glucose [Mass/volume ] in Serum or Plasma High 70-100 [facility] Comment on above: ADA recommended refe rence rangeRandom Glucose Reference Range is dependent on time and content of last meal. Glucose of more than 200 mg/dL in a nonstressed, ambulatory subject supports the diagnosis of Diabetes Mellitus. Glucose [Mass/volume] in Uri ne by Test stripOrdered By: Ayanna Vicente on 05-06-2024 Glucose Test strip (U) [Mass/Vol] Normal mg/dL Normal [facility] Glucose Test strip (U) [Mass/Vol] Glucose [Mass/volume] in Urine by Test strip Normal [facility] Glucose mean value [Mass/vol ume] in Blood Estimated from glycated hemoglobinOrdered By: Ayanna Vicente on 05-06-2024 Average glucose Estimated from glycated hemoglobin (Bld) [Mass/Vol] 194 mg/dL [facility] Hemoglobin A1c percentageOrd ered By: Ayanna Vicente on 05-06-2024 HbA1c (Bld) [Mass fraction] 8.4 % High 4.3-5.6 [facility] Comment on above: Increased risk for d iabetes: 5.7 - 6.4diabetes: >6.4glycemic control for adults with diabetes: <7.0 Result Comment: Incr eased risk for diabetes: 5.7 - 6.4 diabetes: >6.4 glycemic control for adults with diabetes: <7.0 Performed By: #### L IPID, A1C WTH eA, T4F, URMACRERAT, TSH3, CUU, CMP, ADDONUAPLUS, T3T ####[facility] [address] [place] [address] [facility] Hemoglobin A1c/Hemoglobin.to dayna in BloodOrdered By: Ayanna Vicente on 05-06-2024 HbA1c (Bld) [Mass fraction] Hemoglobin A1c percentage High 4.3-5.6 [facility] Comment on above: Increased risk for d iabetes: 5.7 - 6.4diabetes: >6.4glycemic control for adults with diabetes: <7.0 Hemoglobin Test strip Ql (U) Ordered By: Ayanna Vicente on 05-06-2024 Hemoglobin Ql (U) Negative Negative [facility] Hemoglobin Ql (U) Hemoglobin [Presence ] in Urine by Test strip Negative [facility] Hyaline casts LM.LPF (Urine sed) [#/Area]Ordered By: Ayanna Vicente on 05-06-2024 Hyaline casts (Urine sed) [#/Area] 5-9 [LPF] High 0-1 [facility] Hyaline casts (Urine sed) [#/Area] Hyaline casts [#/area] in Urine sediment by Microscopy low power field High 0-1 [facility] Ketones Test strip Ql (U)Ord ered By: Ayanna Vicente on 05-06-2024 Ketones Ql (U) Ketones [Presence] i n Urine by Test strip Negative [facility] Ketones [Presence] in Urine by Test stripOrdered By: Ayanna Vicente on 05-06-2024 Ketones Ql (U) Negative Normal Negative [facility] Comment on above: Order Comment: Name Collection Type:: Clean-Voided Midstream Performed By: #### L IPID, A1C WTH eA, T4F, URMACRERAT, TSH3, CUU, CMP, ADDONUAPLUS, T3T #### [facility] [address] Laboratory - Microbiology an d Antimicrobial susceptibilityOrdered By: Ayanna Vicente on 05-06-2024 Bacteria identified Cx Nom (U) Klebsiella variicola Abnormal [facility] Bacteria identified Cx Nom (U) Klebsiella variicola Abnormal [facility] Leukocyte esterase [Presence ] in Urine by Test stripOrdered By: Ayanna Vicente on 05-06-2024 Leukocyte esterase Test strip Ql (U) 2+ High Negative [facility] Comment on above: Order Comment: Name Collection Type:: Clean-Voided Midstream Performed By: #### L IPID, A1C WTH eA, T4F, URMACRERAT, TSH3, CUU, CMP, ADDONUAPLUS, T3T #### [facility] [address] Leukocyte esterase Test strip Ql (U) Leukocyte esterase [Presence] in Urine by Test strip High Negative [facility] Leukocytes [#/area] in Urine sediment by Microscopy high power fieldOrdered By: Ayanna Vicente on 05-06-2024 WBC LM.HPF (Urine sed) [#/Area] 10-19 [HPF] High 0-4 [facility] WBC LM.HPF (Urine sed) [#/Area] Leukocytes [#/area] in Urine sediment by Microscopy high power field High 0-4 [facility] Lipid Panelon 05-06-2024 LDL Cholesterol,Calculated 46 mg/dL Normal 0-100 [facility] Comment on above: Result Comment: LDL ATP III CLASSIFICATION LDL less than 100 mg/dL Optimal LDL 100-129 mg/dL Near or above optimal LDL 130-159 mg/dL Borderline high LDL 160-189 mg/dL High LDL greater than 189 mg/dL Very high Performed By: #### L IPID, A1C WTH eA, T4F, URMACRERAT, TSH3, CUU, CMP, ADDONUAPLUS, T3T #### [address] Triglyceride w/Reflex 235 mg/dL High 0-149 [facility] Comment on above: Result Comment: TRIG ATP III CLASSIFICATION TRIG less than 150 mg/dL Normal TRIG 150-199 mg/dL Borderline high TRIG 200-500 mg/dL High TRIG greater than 500 mg/dL Very high Standard traceable to the Center for Disease Conrtrol and Prevention (CDC) test method. Performed By: #### L IPID, A1C WTH eA, T4F, URMACRERAT, TSH3, CUU, CMP, ADDONUAPLUS, T3T #### [address] VLDL CHOLESTEROL 47 mg/dL Normal [facility] Comment on above: Performed By: #### L IPID, A1C WTH eA, T4F, URMACRERAT, TSH3, CUU, CMP, ADDONUAPLUS, T3T #### [address] MicroAlb Creat Ratio,Uon Creatinine, Urine (Random) 93.00 mg/dL Normal [facility] Comment on above: Result Comment: No r eference range established Performed By: #### L IPID, A1C WTH eA, T4F, URMACRERAT, TSH3, CUU, CMP, ADDONUAPLUS, T3T #### [address] Microalbumin/Creatinine Ratio 17.2 mg/g Normal 0.0-30.0 [facility] Comment on above: Result Comment: 30-3 00 mg/g indicates an increased risk for diabetic nephropathy. Greater than 300 mg/g is consistent with clinical nephropathy. (Am. J. Kidney Disease 1995, 25:107) PERFORMED BY: [place] [address] PATHOLOGIST SUPERVISOR FIREARMS MATHIEU RASCON M.D. Performed By: #### L IPID, A1C WTH eA, T4F, URMACRERAT, TSH3, CUU, CMP, ADDONUAPLUS, T3T #### [facility] [address] Microalbumin [Mass/volume] i n UrineOrdered By: Ayanna Vicente on 05-06-2024 Albumin DL <= 20 mg/L (U) [Mass/Vol] 1.6 mg/dL Normal 0.0-1.8 [facility] Comment on above: Performed By: #### L IPID, A1C WT eA, T4F, URMACRERAT, TSH3, CUU, CMP, ADDONUAPLUS, T3T #### [facility] [address] [place] [id number] [facility] Albumin DL <= 20 mg/L (U) [Mass/Vol] Microalbumin [Mass/volume] in Urine 0.0-1.8 [facility] Nitrite Test strip Ql (U)Ord ered By: Ayanna Vicente on 05-06-2024 Nitrite Ql (U) Negative Negative [facility] Nitrite Ql (U) Nitrite [Presence] i n Urine by Test strip Negative [facility] No Panel InformationOrdered By: Ayanna Vicente on 05-06-2024 Estimated GFR (CKD-EPI) 51.605 mL/Min [facility] Creatinine Clearance (Chem N/A [facility] Potassium [Moles/volume] in Serum or PlasmaOrdered By: Ayanna Vicente on 05-06-2024 Potassium [Moles/Vol] 5.1 mmol/L Normal 3.5-5.1 [facility] Comment on above: Performed By: #### L IPID, A1C [facility] eA, T4F, URMACRERAT, TSH3, CUU, CMP, ADDONUAPLUS, T3T #### [facility] [address] Potassium [Moles/Vol] Potassium [Moles/volume] in Serum or Plasma 3.5-5.1 [facility] Protein Test strip (U) [Mass /Vol]Ordered By: Ayanna Vicente on 05-06-2024 Protein (U) [Mass/Vol] Trace mg/dL High Negative F [facility] Protein (U) [Mass/Vol] Protein [Mass/vol ume] in Urine by Test strip High Negative [facility] Protein [Mass/volume] in Ser um or PlasmaOrdered By: Ayanna Vicente on 05-06-2024 Protein [Mass/Vol] 6.8 g/dL Normal 6.4-8.9 [facility] Comment on above: Performed By: #### L IPID, A1C WTH eA, T4F, URMACRERAT, TSH3, CUU, CMP, ADDONUAPLUS, T3T #### [facility] [address] Protein [Mass/Vol] Protein [Mass/volume ] in Serum or Plasma 6.4-8.9 [facility] Serum globulin measurement b y calculation (mass/volume)Ordered By: Ayanna Vicente on 05-06-2024 Globulin (S) [Mass/Vol] 2.7 g/dL Normal [facility] Comment on above: Performed By: #### L IPID, A1C WTH eA, T4F, URMACRERAT, TSH3, CUU, CMP, ADDONUAPLUS, T3T #### [facility] [address] [place] [address] Serum or plasma albumin/glob ulin mass ratioOrdered By: Ayanna Vicente on 05-06-2024 Albumin/Globulin [Mass ratio] 1.5 {ratio} Normal [facility] Comment on above: Performed By: #### L IPID, A1C WTH eA, T4F, URMACRERAT, TSH3, CUU, CMP, ADDONUAPLUS, T3T #### [facility] [address] [place] [address] Albumin/Globulin [Mass ratio] Serum or plasma albumin/globulin mass ratio [facility] Serum or plasma anion gap de terminationOrdered By: Ayanna Vicente on 05-06-2024 Anion gap [Moles/Vol] 10.9 mmol/L Normal 6.0-15.0 [facility] Comment on above: Performed By: #### L IPID, A1C WTH eA, T4F, URMACRERAT, TSH3, CUU, CMP, ADDONUAPLUS, T3T #### [facility] [address] [place] [address] Anion gap [Moles/Vol] Serum or plasma an ion gap determination 6.0-15.0 [facility] Serum or plasma high density lipoprotein (HDL) cholesterol measurementOrdered By: Ayanna Vicente on 05-06-2024 Cholesterol in HDL [Mass/Vol] 41 mg/dL Normal 23-92 [facility] Comment on above: HDL CHOL ATP-III CLA SSIFICATION Cardiovascular RiskHDL > or equal to 60 mg/dL LOWHDL < 40 mg/dL HIGH Result Comment: HDL CHOL ATP-III CLASSIFICATION Cardiovascular Risk HDL > or equal to 60 mg/dL LOW HDL < 40 mg/dL HIGH Performed By: #### L IPID, A1C WTH eA, T4F, URMACRERAT, TSH3, CUU, CMP, ADDONUAPLUS, T3T #### [facility] [address] Serum or plasma total choles terol/high density lipoprotein (HDL) cholesterol mass ratOrdered By: Ayanna Vicente on 05-06-2024 Cholesterol.total/Choles terol in HDL [Mass ratio] 3.3 {ratio} Normal <5.0 [facility] Comment on above: Performed By: #### L IPID, A1C WTH eA, T4F, URMACRERAT, TSH3, CUU, CMP, ADDONUAPLUS, T3T #### [facility] [address] [place] [id number] [facility] Cholesterol.total/Choles terol in HDL [Mass ratio] Serum or plasma total cholesterol/high density lipoprotein (HDL) cholesterol mass rat <5.0 [facility] Sodium [Moles/volume] in Ser um or PlasmaOrdered By: Ayanna Vicente on 05-06-2024 Sodium [Moles/Vol] 141 mmol/L Normal 136-145 [facility] Comment on above: Performed By: #### L IPID, A1C WTH eA, T4F, URMACRERAT, TSH3, CUU, CMP, ADDONUAPLUS, T3T #### [facility] [address] [place] [id number] [facility] Sodium [Moles/Vol] Sodium [Moles/volume ] in Serum or Plasma 136-145 [facility] Specific gravity Test strip (U) [Rel density]Ordered By: Ayanna Vicente on 05-06-2024 Specific gravity (U) [Rel density] 1.020 1.001-1.030 [facility] Specific gravity (U) [Rel density] Specific gravity of Urine by Test strip 1.001-1.030 [facility] Thyrotropin [Units/volume] i n Serum or PlasmaOrdered By: Ayanna Vicente on 05-06-2024 TSH Qn 1.93 m[IU]/L Normal 0.45-5.33 [facility] Comment on above: Result Comment: PERF ORMED BY: [facility] [address] [place] [address] PATHOLOGIST SUPERVISOR FI[employer]AR[employer] MATHIEU RASCON M.D. Performed By: #### L IPID, A1C WT eA, T4F, URMACRERAT, TSH3, CUU, CMP, ADDONUAPLUS, T3T ####[place] [address] [place] [id number] [facility] TSH Qn Thyrotropin [Units/volume] in Serum or Plasma 0.45-5.33 [facility] Thyroxine (T4) free [Mass/vo lume] in Serum or PlasmaOrdered By: Ayanna Vicente on 05-06-2024 Free T4 [Mass/Vol] 0.94 ng/dL Normal 0.61-1.12 [facility] Comment on above: Performed By: #### L IPID, A1C WTH eA, T4F, URMACRERAT, TSH3, CUU, CMP, ADDONUAPLUS, T3T ####[place] [address] [place] [phone] [facility] Free T4 [Mass/Vol] Thyroxine (T4) free [Mass/volume] in Serum or Plasma 0.61-1.12 [facility] Triglyceride [Mass/volume] i n Serum or PlasmaOrdered By: Ayanna Vicente on 05-06-2024 Triglyceride [Mass/Vol] 235 mg/dL High 0-149 F [facility] Comment on above: TRIG ATP III CLASSIF ICATIONTRIG less than 150 mg/dL NormalTRIG 150-199 mg/dL Borderline highTRIG 200-500 mg/dL High TRIG greater than 500 mg/dL Very highStandard traceable to the Center for Disease Conrtrol and Prevention (CDC) test method. Triglyceride [Mass/Vol] Triglyceride [Mass/volume] in Serum or Plasma High 0-149 [facility] Comment on above: TRIG ATP III CLASSIF ICATIONTRIG less than 150 mg/dL NormalTRIG 150-199 mg/dL Borderline highTRIG 200-500 mg/dL High TRIG greater than 500 mg/dL Very highStandard traceable to the Center for Disease Conrtrol and Prevention (CDC) test method. Triiodothyronine (T3) Totalo n 05-06-2024 Triiodothyronine (T3) Total 0.89 ng/mL Normal 0.87-1.78 [facility] Comment on above: Performed By: #### L IPID, A1C WT eA, T4F, URMACRERAT, TSH3, CUU, CMP, ADDONUAPLUS, T3T ####[facility] [id number] Triiodothyronine (T3) [Mass/ volume] in Serum or PlasmaOrdered By: Ayanna Vicente on 05-06-2024 T3 [Mass/Vol] 0.89 ng/mL 0.87-1.78 [facility] T3 [Mass/Vol] Triiodothyronine (T3 ) [Mass/volume] in Serum or Plasma 0.87-1.78 [facility] Urea nitrogen [Mass/volume] in Serum or PlasmaOrdered By: Ayanna Viecnte on 05-06-2024 Urea nitrogen [Mass/Vol] 29 mg/dL High 02-04 [facility] Comment on above: Performed By: #### L IPID, A1C WTH eA, T4F, URMACRERAT, TSH3, CUU, CMP, ADDONUAPLUS, T3T #### [facility] [address] Urea nitrogen [Mass/Vol] Urea nitrogen [Mass/volume] in Serum or Plasma High 02-04 [facility] Urine Cultureon 05-06-2024 Bacteria identified Cx Nom (U) ORGANISM: Klebsiella variicola (O:KLEVAR) [place] Count >100,000 Aerobic CORNELIA Charge ([id number]) ---- [...] RESISTANT TO ALL B-LACTAM DRUGS. PERFORMED BY: [facility] [address] [place] [address] PATHOLOGIST SUPERVISOR FIREARMS MATHIEU RASCON M.D. Normal [facility] Comment on above: Performed By: #### L IPID, A1C [facility] eA, T4F, URMACRERAT, TSH3, CUU, CMP, ADDONUAPLUS, T3T ####[facility] [id number] Urine appearanceOrdered By: Ayanna Vicente on 05-06-2024 Appearance (U) Clear Normal Clear [facility] Comment on above: Order Comment: Name Collection Type:: Clean-Voided Midstream Performed By: #### L IPID, A1C WT eA, T4F, URMACRERAT, TSH3, CUU, CMP, ADDONUAPLUS, T3T #### [facility] [address] [place] [id number] [facility] Urine cultureOrdered By: Aftab Vicente on 05-06-2024 Bacteria identified Cx Nom (U) Abnormal [facility] Urine microalbumin/creatinin e mass ratioOrdered By: Ayanna Vicente on 05-06-2024 Albumin/Creatinine DL <= 20 mg/L (U) [Mass ratio] 17.2 mg/g 0.0-30.0 [facility] Comment on above: 30-300 mg/g indicate s an increased risk for diabetic nephropathy. Greater than 300 mg/g is consistent with clinical nephropathy. (Am. J. Kidney Disease 1995, 25:107) Albumin/Creatinine DL <= 20 mg/L (U) [Mass ratio] Urine microalbumin/creatini ne mass ratio 0.0-30.0 [facility] Comment on above: 30-300 mg/g indicate s an increased risk for diabetic nephropathy. Greater than 300 mg/g is consistent with clinical nephropathy. (Am. J. Kidney Disease 1995, 25:107) Urobilinogen Test strip (U) [Mass/Vol]Ordered By: Ayanna Vicente on 05-06-2024 Urobilinogen (U) [Mass/Vol] Normal mg/dL Normal [facility] Urobilinogen (U) [Mass/Vol] Urobilinogen [Mass/volume] in Urine by Test strip Normal [facility] pH Test strip (U)Ordered By: Ayanna Vicente on 05-06-2024 pH (U) pH of Urine by Test strip 5.0-9.0 [facility] pH of Urine by Test stripOrd ered By: Ayanna Vicente on 05-06-2024 pH (U) 5.5 [pH] Normal 5.0-9.0 [facility] Comment on above: Order Comment: Name Collection Type:: Clean-Voided Midstream Performed By: #### L IPID, A1C WTH eA, T4F, URMACRERAT, TSH3, CUU, CMP, ADDONUAPLUS, T3T #### [facility] [address] [place] [id number] [facility] Ambulatory Visit Summaryon 0 02-24-2024 Ambulatory Visit [...] mos (no labs) Where: [address] [place] [id number] Medications What How Much When Why Instructions [...] social activities (more content not included)... Normal [facility] Urology Office/Clinic Noteon 02-24-2024 Urology Office/Clinic Note [...] (N32.81: Overactive bladder) S/p Botox 100u 08/30/21. -[place] sxs only improved for a few weeks [...] Contact Information JAX BECKMAN, SUSAN Miller, URL [address] [place] [address] [phone] Additional Instructions: 6 mos (no labs) Patient [...] mg Tab, (more content not included)... Normal [facility] Comment on above: Result Comment: Elec tronically Signed By: SUSAN RANDOLPH PA-C\.br\Date and Time Signed: 02/24/24 10:53 EDT\.br\Electronically Co-Signed By: Sarah Ospina\.br\Date and Time Co-Signed: 02/24/24 10:44 EDT\.br\Electronically Co-Signed By: Sarah Ospina.br\Date and Time Co-Signed: 02/24/24 10:47 EDT Laboratory - Chemistry and C hemistry - challengeon 02-04-2024 Bilirubin Ql (U) Negative NEGATIVE [facility] Glucose (U) [Mass/Vol] Negative NEGATIVE [facility] Ketones Ql (U) Negative NEGATIVE [facility] pH (U) 6.0 [pH] 5.0-9.0 [facility] Specific gravity (U) [Rel density] >=1.030 Abnormal 1.005-1.025 [facility] Urobilinogen Qn (U) 0.2 {Jose'U}/dL 0.2-1.0 [facility] Laboratory - Specimen inform ationon 02-04-2024 Appearance (U) CLEAR CLEAR [facility] Color (U) YELLOW YELLOW [facility] Laboratory - Urinalysison Leukocyte esterase Test strip Ql (U) TRACE Abnormal NEGATIVE [facility] Mucus Ql (Urine sed) TRACE Abnormal NONE SEEN [facility] Nitrite Ql (U) Negative NEGATIVE [facility] Protein Ql (U) TRACE mg/dL NEG/TRACE [facility] No Panel Informationon 02-03 Miscellaneous Test Comment See comment [facility] Comment on above: Specimen Source: UCC - Urine,Clean Catch - Urine CC - 200.100 Urine Bacteria TRACE #/HPF Abnormal NONE SEEN [facility] Urine Occult Blood Negative NEGATIVE [facility] Urine Other Casts NONE SEEN #/LPF NONE SEEN [facility] Urine Other Crystals None Seen #/HPF None Seen [facility] Urine RBC 0-2 #/HPF 0-2 [facility] Urine Squamous Epithelial Cells RARE #/LPF NONE/RARE [facility] Urine WBC 2-5 #/HPF Abnormal NONE SEEN [facility] Urine culture routineon 01-12 Bacteria identified Cx Nom (U) [facility] Alanine aminotransferase [En zymatic activity/volume] in Serum or PlasmaOrdered By: Ayanna Vicente on 10-17-2023 ALT [Catalytic activity/Vol] 28 U/L 7-52 [facility] Albumin [Mass/volume] in Ser um or Plasma by Bromocresol green (BCG) dye binding methoOrdered By: Ayanna Vicente on 10-17-2023 Albumin BCG dye [Mass/Vol] 4.1 g/dL 3.5-5.7 [facility] Alkaline phosphatase [Enzyma tic activity/volume] in Serum or PlasmaOrdered By: Ayanna Vicente on 10-17-2023 ALP [Catalytic activity/Vol] 93 U/L 34-104 [facility] Anisocytosis LM Ql (Bld)Orde red By: Ayanna Vicente on 10-17-2023 Anisocytosis Ql (Bld) Slight [facility] Aspartate aminotransferase [ Enzymatic activity/volume] in Serum or PlasmaOrdered By: Ayanna Vicente on 10-17-2023 AST [Catalytic activity/Vol] 30 U/L 13-39 [facility] Automated erythrocytes count in urine sediment (number/area)Ordered By: Ayanna Vicente on 10-17-2023 RBC Auto (Urine sed) [#/Area] 1-2 [HPF] 0-4 [facility] Automated leukocytes count i n urine sediment (number/area)Ordered By: Ayanna Vicente on 10-17-2023 WBC Auto (Urine sed) [#/Area] 10-19 [HPF] High 0-4 [facility] Basophils Auto (Bld) [#/Vol] Ordered By: Ayanna Vicente on 10-17-2023 Basophils (Bld) [#/Vol] N/A F [facility] Basophils/100 WBC Auto (Bld) Ordered By: Ayanna Vicente on 10-17-2023 Basophils/100 WBC (Bld) N/A F [facility] Bilirubin Test strip Ql (U)O rdered By: Ayanna Vicente on 10-17-2023 Bilirubin Ql (U) Negative Negative [facility] Bilirubin.total [Mass/volume ] in Serum or PlasmaOrdered By: Ayanna Vicente on 10-17-2023 Bilirubin [Mass/Vol] 0.4 mg/dL 0.3-1.0 [facility] Calcium [Mass/volume] in Ser um or PlasmaOrdered By: Ayanna Vicente on 10-17-2023 Calcium [Mass/Vol] 9.7 mg/dL 8.6-10.3 [facility] Carbon dioxide, total [Moles /volume] in Serum or PlasmaOrdered By: Ayanna Vicente on 10-17-2023 CO2 [Moles/Vol] 30.9 mmol/L 21.0-31.0 [facility] Chloride [Moles/volume] in S ebony or PlasmaOrdered By: Ayanna Vicente on 10-17-2023 Chloride [Moles/Vol] 105 mmol/L 98-107 [facility] Cholesterol [Mass/volume] in Serum or PlasmaOrdered By: Ayanna Vicente on 10-17-2023 Cholesterol [Mass/Vol] 131 mg/dL Low 140-200 Fi [facility] Comment on above: Chol less than 200 m g/dl low riskChol 201-239 mg/dl borderline riskChol 240 mg/dl and greater high risk Cholesterol in LDL Calc [Mas s/Vol]Ordered By: Ayanna Vicente on 10-17-2023 Cholesterol in LDL [Mass/Vol] 30 mg/dL 0-100 [facility] Comment on above: LDL ATP III CLASSIFI CATIONLDL less than 100 mg/dL OptimalLDL 100-129 mg/dL Near or above optimalLDL 130-159 mg/dL Borderline highLDL 160-189 mg/dL HighLDL greater than 189 mg/dL Very high Cholesterol in VLDL Calc [Ma ss/Vol]Ordered By: Ayanna Vicente on 10-17-2023 Cholesterol in VLDL [Mass/Vol] 60 mg/dL [facility] Color Auto (U)Ordered By: Vasile Vicente on 10-17-2023 Color (U) Yellow Yellow [facility] Creatinine [Mass/volume] in Serum or PlasmaOrdered By: Ayanna Vicente on 10-17-2023 Creatinine [Mass/Vol] 1.15 mg/dL 0.60-1.20 [facility] Eosinophils Auto (Bld) [#/Vo l]Ordered By: Ayanna Vicente on 10-17-2023 Eosinophils (Bld) [#/Vol] N/A [facility] Eosinophils/100 WBC Auto (Bl d)Ordered By: Ayanna Vicente on 10-17-2023 Eosinophils/100 WBC (Bld) N/A [facility] Eosinophils/100 WBC Manual c nt (Bld)Ordered By: Ayanna Vicente on 10-17-2023 Eosinophils/100 WBC (Bld) 2 % 1-3 [facility] Erythrocyte distribution wid th Auto (RBC) [Ratio]Ordered By: Ayanna Vicente on 10-17-2023 Erythrocyte distribution width (RBC) [Ratio] 15.2 % 11.9-15.3 [facility] Globulin Calc (S) [Mass/Vol] Ordered By: Ayanna Vicente on 10-17-2023 Globulin (S) [Mass/Vol] 2.6 g/dL F [facility] Glucose [Mass/volume] in Ser um or PlasmaOrdered By: Ayanna Vicente on 10-17-2023 Glucose [Mass/Vol] 162 mg/dL High 70-[address] [facility] Comment on above: ADA recommended refe [...] from glycated hemoglobin (Bld) [Mass/Vol] 197 mg/dL [facility] Hematocrit Auto (Bld) [Volum e fraction]Ordered By: Ayanna Vicente on 10-17-2023 Hematocrit (Bld) [Volume fraction] 38.8 % 34.0-46.4 [facility] Hemoglobin A1c percentageOrd ered By: Ayanna Vicente on 10-17-2023 HbA1c (Bld) [Mass fraction] 8.5 % High 4.3-5.6 [facility] Comment on above: Increased risk for d iabetes: 5.7 - 6.4diabetes: >6.4glycemic control for adults with diabetes: <7.0 Hemoglobin [Mass/volume] in BloodOrdered By: Ayanna Vicente on 10-17-2023 Hemoglobin (Bld) [Mass/Vol] 12.2 g/dL 11.8-15.4 [facility] Ketones Auto test strip (U) [Mass/Vol]Ordered By: Ayanna Vicente on 10-17-2023 Ketones (U) [Mass/Vol] Negative Negative [facility] Laboratory - UrinalysisOrder ed By: Ayanna Vicente on 10-17-2023 Hyaline casts LM Ql (Urine sed) None seen [LPF] 0-8 [facility] Leukocytes [#/volume] correc andreina for nucleated erythrocytes in Blood by Automated counOrdered By: Ayanna Vicente on 10-17-2023 WBC corrected for nucl RBC Auto (Bld) [#/Vol] 15.9 10*3/uL High 3.8-11.6 [facility] Lymphocytes Auto (Bld) [#/Vo l]Ordered By: Ayanna Vicente on 10-17-2023 Lymphocytes (Bld) [#/Vol] N/A [facility] Lymphocytes/100 WBC Auto (Bl d)Ordered By: Ayanna Vicente on 10-17-2023 Lymphocytes/100 WBC (Bld) N/A [facility] Lymphocytes/100 WBC Manual c nt (Bld)Ordered By: Ayanna Vicente on 10-17-2023 Lymphocytes/100 WBC (Bld) 51 % High 18-42 [facility] MCH Auto (RBC) [Entitic mass ]Ordered By: Ayanna Vicente on 10-17-2023 MCH (RBC) [Entitic mass] 28.0 pg 24.7-34.3 [facility] MCHC Auto (RBC) [Mass/Vol]Or dered By: Ayanna Vicente on 10-17-2023 MCHC (RBC) [Mass/Vol] 31.5 g/dL Low 32.0-35.0 [facility] MCV Auto (RBC) [Entitic vol] Ordered By: Ayanna Vicente on 10-17-2023 MCV (RBC) [Entitic vol] 89.0 fL 80-100 F [facility] Microalbumin [Mass/volume] i n UrineOrdered By: Ayanna Vicente on 10-17-2023 Albumin DL <= 20 mg/L (U) [Mass/Vol] 1.9 mg/dL High 0.0-1.8 [facility] Microcytes LM Ql (Bld)Ordere d By: Ayanna Vicente on 10-17-2023 Microcytes Ql (Bld) Slight [facility] Monocytes Auto (Bld) [#/Vol] Ordered By: Ayanna Vicente on 10-17-2023 Monocytes (Bld) [#/Vol] N/A F [facility] Monocytes/100 WBC Auto (Bld) Ordered By: Ayanna Vicente on 10-17-2023 Monocytes/100 WBC (Bld) N/A F [facility] Monocytes/100 WBC Manual cnt (Bld)Ordered By: Ayanna Vicente on 10-17-2023 Monocytes/100 WBC (Bld) 8 % 2-11 F [facility] Myelocytes/100 WBC Manual cn t (Bld)Ordered By: Ayanna Vicente on 10-17-2023 Myelocytes/100 WBC (Bld) 1 % High 0-0 [facility] Neutrophils Auto (Bld) [#/Vo l]Ordered By: Ayanna Vicente on 10-17-2023 Neutrophils (Bld) [#/Vol] N/A [facility] Neutrophils/100 WBC Auto (Bl d)Ordered By: Ayanna Vicente on 10-17-2023 Neutrophils/100 WBC (Bld) N/A [facility] Nitrite Test strip Ql (U)Ord ered By: Ayanna Vicente on 10-17-2023 Nitrite Ql (U) Positive High Negative [facility] No Panel InformationOrdered By: Ayanna Vicente on 10-17-2023 Estimated GFR (CKD-EPI) 47.859 mL/Min [facility] Creatinine Clearance (Chem N/A [facility] Nucleated erythrocytes [Pres ence] in Blood by Automated countOrdered By: Ayanna Vicente on 10-17-2023 Nucleated RBC Auto Ql (Bld) N/A [facility] Platelet adequacy [Presence] in Blood by Light microscopyOrdered By: Ayanna Vicente on 10-17-2023 Platelets LM Ql (Bld) Normal Normal Fir [facility] Platelet mean volume Auto (B ld) [Entitic vol]Ordered By: Ayanna Vicente on 10-17-2023 Platelet mean volume (Bld) [Entitic vol] 9.2 fL 6.3-10.7 [facility] Platelet morphology finding [Identifier] in BloodOrdered By: Ayanna Vicente on 10-17-2023 Platelet morphology finding Nom (Bld) Normal Normal [facility] Platelets Auto (Bld) [#/Vol] Ordered By: Ayanna Vicente on 10-17-2023 Platelets (Bld) [#/Vol] 231 10*3/uL 150-450 [facility] Poikilocytosis [Presence] in Blood by Light microscopyOrdered By: Ayanna Vicente on 10-17-2023 Poikilocytosis LM Ql (Bld) Slight [facility] Potassium [Moles/volume] in Serum or PlasmaOrdered By: Ayanna Vicente on 10-17-2023 Potassium [Moles/Vol] 5.1 mmol/L 3.5-5.1 [facility] Protein Auto test strip (U) [Mass/Vol]Ordered By: Ayanna Vicente on 10-17-2023 Protein (U) [Mass/Vol] Trace mg/dL High Negative F [facility] Protein [Mass/volume] in Ser um or PlasmaOrdered By: Ayanna Vicente on 10-17-2023 Protein [Mass/Vol] 6.7 g/dL 6.4-8.9 [facility] RBC Auto (Bld) [#/Vol]Ordere d By: Ayanna Vicente on 10-17-2023 RBC (Bld) [#/Vol] 4.36 10*6/uL 3.60-5.00 [facility] RBC morphologyOrdered By: Vasile Vicente on 10-17-2023 RBC morphology finding Nom (Bld) N/A [facility] Segmented neutrophils/100 WB C Manual cnt (Bld)Ordered By: Ayanna Vicente on 10-17-2023 Segmented neutrophils/100 WBC (Bld) 33 % Low 50-70 [facility] Serum or plasma albumin/glob ulin mass ratioOrdered By: Ayanna Vicente on 10-17-2023 Albumin/Globulin [Mass ratio] 1.6 {ratio} [facility] Serum or plasma anion gap de terminationOrdered By: Ayanna Vicente on 10-17-2023 Anion gap [Moles/Vol] 8.2 mmol/L 6.0-15.0 [facility] Serum or plasma high density lipoprotein (HDL) cholesterol measurementOrdered By: Ayanna Vicente on 10-17-2023 Cholesterol in HDL [Mass/Vol] 40 mg/dL 23-92 [facility] Comment on above: HDL CHOL ATP-III CLA SSIFICATION Cardiovascular RiskHDL > or equal to 60 mg/dL LOWHDL < 40 mg/dL HIGH Serum or plasma total choles terol/high density lipoprotein (HDL) cholesterol mass ratOrdered By: Ayanna Vicente on 10-17-2023 Cholesterol.total/Choles terol in HDL [Mass ratio] 3.3 {ratio} <5.0 [facility] Sodium [Moles/volume] in Ser um or PlasmaOrdered By: Ayanna Vicente on 10-17-2023 Sodium [Moles/Vol] 139 mmol/L 136-145 [facility] Specific gravity Auto test s trip (U) [Rel density]Ordered By: Ayanna Vicente on 10-17-2023 Specific gravity (U) [Rel density] 1.018 1.001-1.030 [facility] Squamous epithelial cells de tection in urine sediment by light microscopyOrdered By: Ayanna Vicente on 10-17-2023 Epithelial cells.squamous LM Ql (Urine sed) 0-1 [HPF] 0-2 [facility] Thyrotropin [Units/volume] i n Serum or PlasmaOrdered By: Ayanna Vicente on 10-17-2023 TSH Qn 1.46 m[IU]/L 0.45-5.33 [facility] Thyroxine (T4) free [Mass/vo lume] in Serum or PlasmaOrdered By: Ayanna Vicente on 10-17-2023 Free T4 [Mass/Vol] 1.02 ng/dL 0.61-1.12 [facility] Triglyceride [Mass/volume] i n Serum or PlasmaOrdered By: Ayanna Vicente on 10-17-2023 Triglyceride [Mass/Vol] 303 mg/dL High 0-149 F [facility] Comment on above: TRIG ATP III CLASSIF ICATIONTRIG less than 150 mg/dL NormalTRIG 150-199 mg/dL Borderline highTRIG 200-500 mg/dL High TRIG greater than 500 mg/dL Very highStandard traceable to the Center for Disease Conrtrol and Prevention (CDC) test method. Triiodothyronine (T3) Free [ Mass/volume] in Serum or PlasmaOrdered By: Ayanna Vicente on 10-17-2023 Free T3 [Mass/Vol] 3.22 pg/mL 2.50-3.90 [facility] Urea nitrogen [Mass/volume] in Serum or PlasmaOrdered By: Ayanna Vicente on 10-17-2023 Urea nitrogen [Mass/Vol] 30 mg/dL High 7-25 [facility] Urine bacteria detection by automated methodOrdered By: Ayanna Vicente on 10-17-2023 Bacteria Auto Ql (U) 4+ High None Seen [facility] Urine clarity by refractomet ry automatedOrdered By: Ayanna Vicente on 10-17-2023 Clarity Refractometry automated (U) Clear Clear [facility] Urine culture routineOrdered By: Ayanna Vicente on 10-17-2023 Bacteria identified Cx Nom (U) Escherichia coli (MDRO) Abnormal [facility] Urine glucose measurement by automated test strip (mass/volume)Ordered By: Ayanna Vicente on 10-17-2023 Glucose Auto test strip (U) [Mass/Vol] Normal mg/dL Normal [facility] Urine hemoglobin detection b y automated test stripOrdered By: Ayanna Vicente on 10-17-2023 Hemoglobin Auto test strip Ql (U) Negative Negative [facility] Urine leukocyte esterase det ection by automated test stripOrdered By: Ayanna Vicente on 10-17-2023 Leukocyte esterase Auto test strip Ql (U) 2+ High Negative [facility] Urobilinogen Auto test strip (U) [Mass/Vol]Ordered By: Ayanna Vicente on 10-17-2023 Urobilinogen (U) [Mass/Vol] Normal mg/dL Normal [facility] Variant lymphocytes/100 WBC Manual cnt (Bld)Ordered By: Ayanna Vicente on 10-17-2023 Variant lymphocytes/100 WBC (Bld) 6 % 0-12 [facility] WBC Auto (Bld) [#/Vol]Ordere d By: Ayanna Vicente on 10-17-2023 WBC (Bld) [#/Vol] 15.9 10*3/uL High 3.8-11.6 [facility] pH Auto test strip (U)Ordere d By: Ayanna Vicente on 10-17-2023 pH (U) 5.5 [pH] 5.0-9.0 [facility] Alanine aminotransferase [En zymatic activity/volume] in Serum or PlasmaOrdered By: Ayanna Vicente on 04-09-2023 ALT [Catalytic activity/Vol] 25 U/L 7-52 [facility] Albumin [Mass/volume] in Ser um or Plasma by Bromocresol green (BCG) dye binding methoOrdered By: Ayanna Vicente on 04-09-2023 Albumin BCG dye [Mass/Vol] 4.2 g/dL 3.5-5.7 [facility] Alkaline phosphatase [Enzyma tic activity/volume] in Serum or PlasmaOrdered By: Ayanna Vicente on 04-09-2023 ALP [Catalytic activity/Vol] 95 U/L 34-104 [facility] Anisocytosis LM Ql (Bld)Orde red By: Ayanna Vicente on 04-09-2023 Anisocytosis Ql (Bld) Slight [facility] Aspartate aminotransferase [ Enzymatic activity/volume] in Serum or PlasmaOrdered By: Ayanna Vicente on 04-09-2023 AST [Catalytic activity/Vol] 21 U/L 13-39 [facility] Basophils Auto (Bld) [#/Vol] Ordered By: Ayanna Vicente on 04-09-2023 Basophils (Bld) [#/Vol] N/A F [facility] Basophils/100 WBC Auto (Bld) Ordered By: Ayanna Vicente on 04-09-2023 Basophils/100 WBC (Bld) N/A F [facility] Bilirubin.total [Mass/volume ] in Serum or PlasmaOrdered By: Ayanna Vicente on 04-09-2023 Bilirubin [Mass/Vol] 0.4 mg/dL 0.3-1.0 [facility] Calcium [Mass/volume] in Ser um or PlasmaOrdered By: Ayanna Vicente on 04-09-2023 Calcium [Mass/Vol] 9.9 mg/dL 8.6-10.3 [facility] Carbon dioxide, total [Moles /volume] in Serum or PlasmaOrdered By: Ayanna Vicente on 04-09-2023 CO2 [Moles/Vol] 31.5 mmol/L 21.0-31.0 [facility] Chloride [Moles/volume] in S ebony or PlasmaOrdered By: Ayanna Vicente on 04-09-2023 Chloride [Moles/Vol] 103 mmol/L 98-107 [facility] Cholesterol [Mass/volume] in Serum or PlasmaOrdered By: Ayanna Vicente on 04-09-2023 Cholesterol [Mass/Vol] 139 mg/dL 140-200 [facility] Comment on above: Chol less than 200 m g/dl low riskChol 201-239 mg/dl borderline riskChol 240 mg/dl and greater high risk Cholesterol in LDL Calc [Mas s/Vol]Ordered By: Ayanna Vicente on 04-09-2023 Cholesterol in LDL [Mass/Vol] 27 mg/dL 0-100 [facility] Comment on above: LDL ATP III CLASSIFI CATIONLDL less than 100 mg/dL OptimalLDL 100-129 mg/dL Near or above optimalLDL 130-159 mg/dL Borderline highLDL 160-189 mg/dL HighLDL greater than 189 mg/dL Very high Cholesterol in VLDL Calc [Ma ss/Vol]Ordered By: Ayanna Vicente on 04-09-2023 Cholesterol in VLDL [Mass/Vol] 69 mg/dL [facility] Creatinine [Mass/volume] in Serum or PlasmaOrdered By: Ayanna Vicente on 04-09-2023 Creatinine [Mass/Vol] 1.06 mg/dL 0.60-1.20 [facility] Eosinophils Auto (Bld) [#/Vo l]Ordered By: Ayanna Vicente on 04-09-2023 Eosinophils (Bld) [#/Vol] N/A [facility] Eosinophils/100 WBC Auto (Bl d)Ordered By: Ayanna Vicente on 04-09-2023 Eosinophils/100 WBC (Bld) N/A [facility] Eosinophils/100 WBC Manual c nt (Bld)Ordered By: Ayanna Vicente on 04-09-2023 Eosinophils/100 WBC (Bld) 5 % 1-3 [facility] Erythrocyte distribution wid th Auto (RBC) [Ratio]Ordered By: Ayanna Vicente on 04-09-2023 Erythrocyte distribution width (RBC) [Ratio] 15.1 % 11.9-15.3 [facility] Globulin Calc (S) [Mass/Vol] Ordered By: Ayanna Vicente on 04-09-2023 Globulin (S) [Mass/Vol] 2.4 g/dL [facility] Glucose [Mass/volume] in Ser um or PlasmaOrdered By: Ayanna Vicente on 04-09-2023 Glucose [Mass/Vol] 154 mg/dL 70-100 [facility] Comment on above: ADA recommended refe rence rangeRandom Glucose Reference Range is dependent on time and content of last meal. Glucose of more than 200 mg/dL in a nonstressed, ambulatory subject supports the diagnosis of Diabetes Mellitus. Glucose mean value [Mass/vol ume] in Blood Estimated from glycated hemoglobinOrdered By: Ayanna Vicente on 04-09-2023 Average glucose Estimated from glycated hemoglobin (Bld) [Mass/Vol] 200 mg/dL [facility] Hematocrit Auto (Bld) [Volum e fraction]Ordered By: Ayanna Vicente on 04-09-2023 Hematocrit (Bld) [Volume fraction] 37.2 % 34.0-46.4 [facility] Hemoglobin A1c percentageOrd ered By: Ayanna Vicente on 04-09-2023 HbA1c (Bld) [Mass fraction] 8.6 % 4.3-5.6 [facility] Comment on above: Increased risk for d iabetes: 5.7 - 6.4diabetes: >6.4glycemic control for adults with diabetes: <7.0 Hemoglobin [Mass/volume] in BloodOrdered By: Ayanna Vicente on 04-09-2023 Hemoglobin (Bld) [Mass/Vol] 12.2 g/dL 11.8-15.4 [facility] Leukocytes [#/volume] correc andreina for nucleated erythrocytes in Blood by Automated counOrdered By: Ayanna Vicente on 04-09-2023 WBC corrected for nucl RBC Auto (Bld) [#/Vol] 15.3 10*3/uL 3.8-11.6 [facility] Lymphocytes Auto (Bld) [#/Vo l]Ordered By: Ayanna Vicente on 04-09-2023 Lymphocytes (Bld) [#/Vol] N/A [facility] Lymphocytes/100 WBC Auto (Bl d)Ordered By: Ayanna Vicente on 04-09-2023 Lymphocytes/100 WBC (Bld) N/A [facility] Lymphocytes/100 WBC Manual c nt (Bld)Ordered By: Ayanna Vicente on 04-09-2023 Lymphocytes/100 WBC (Bld) 59 % 18-42 [facility] MCH Auto (RBC) [Entitic mass ]Ordered By: Ayanna Vicente on 04-09-2023 MCH (RBC) [Entitic mass] 29.1 pg 24.7-34.3 [facility] MCHC Auto (RBC) [Mass/Vol]Or dered By: Ayanna Vicente on 04-09-2023 MCHC (RBC) [Mass/Vol] 32.9 g/dL 32.0-35.0 [facility] MCV Auto (RBC) [Entitic vol] Ordered By: Ayanna Vicente on 04-09-2023 MCV (RBC) [Entitic vol] 88.5 fL 80-100 F [facility] Monocytes Auto (Bld) [#/Vol] Ordered By: Ayanna Vicente on 04-09-2023 Monocytes (Bld) [#/Vol] N/A [facility] Monocytes/100 WBC Auto (Bld) Ordered By: Ayanna Vicenet on 04-09-2023 Monocytes/100 WBC (Bld) N/A [facility] Monocytes/100 WBC Manual cnt (Bld)Ordered By: Ayanna Vicente on 04-09-2023 Monocytes/100 WBC (Bld) 7 % 2-11 [facility] Myelocytes/100 WBC Manual cn t (Bld)Ordered By: Ayanna Vicente on 04-09-2023 Myelocytes/100 WBC (Bld) 1 % 0-0 [facility] Neutrophils Auto (Bld) [#/Vo l]Ordered By: Ayanna Vicente on 04-09-2023 Neutrophils (Bld) [#/Vol] N/A [facility] Neutrophils/100 WBC Auto (Bl d)Ordered By: Ayanna Vicente on 04-09-2023 Neutrophils/100 WBC (Bld) N/A [facility] No Panel InformationOrdered By: Ayanna Vicente on 04-09-2023 Estimated GFR (CKD-EPI) 53.106 mL/Min [facility] Creatinine Clearance (Chem N/A [facility] Nucleated erythrocytes [Pres ence] in Blood by Automated countOrdered By: Ayanna Vicente on 04-09-2023 Nucleated RBC Auto Ql (Bld) N/A [facility] Ovalocyte detectionOrdered B y: Ayanna Vicente on 04-09-2023 Ovalocytes LM Ql (Bld) [facility] Plate[facility] adequacy [Presence] in Blood by Light microscopyOrdered By: Ayanna Vicente on 04-09-2023 Platelets LM Ql (Bld) Normal Normal [facility] Platelet mean volume Auto (B ld) [Entitic vol]Ordered By: Ayanna Vicente on 04-09-2023 Platelet mean volume (Bld) [Entitic vol] 9.5 fL 6.3-10.7 [facility] Platelet morphology finding [Identifier] in BloodOrdered By: Ayanna Vicente on 04-09-2023 Platelet morphology finding Nom (Bld) Normal Normal [facility] Platelets Auto (Bld) [#/Vol] Ordered By: Ayanna Vicente on 04-09-2023 Platelets (Bld) [#/Vol] 211 10*3/uL 150-450 [facility] Potassium [Moles/volume] in Serum or PlasmaOrdered By: Ayanna Vicente on 04-09-2023 Potassium [Moles/Vol] 5.0 mmol/L 3.5-5.1 [facility] Protein [Mass/volume] in Ser um or PlasmaOrdered By: Ayanna Vicente on 04-09-2023 Protein [Mass/Vol] 6.6 g/dL 6.4-8.9 [facility] RBC Auto (Bld) [#/Vol]Ordere d By: Ayanna Vicente on 04-09-2023 RBC (Bld) [#/Vol] 4.20 10*6/uL 3.60-5.00 [facility] RBC morphologyOrdered By: Vasile Vicente on 04-09-2023 RBC morphology finding Nom (Bld) N/A [facility] Segmented neutrophils/100 WB C Manual cnt (Bld)Ordered By: Ayanna Vicente on 04-09-2023 Segmented neutrophils/100 WBC (Bld) 27 % 50-70 [facility] Serum or plasma albumin/glob ulin mass ratioOrdered By: Ayanna Vicente on 04-09-2023 Albumin/Globulin [Mass ratio] 1.8 {ratio} [facility] Serum or plasma anion gap de terminationOrdered By: Ayanna Vicente on 04-09-2023 Anion gap [Moles/Vol] 10.5 mmol/L 6.0-15.0 [facility] Serum or plasma high density lipoprotein (HDL) cholesterol measurementOrdered By: Ayanna Vicente on 04-09-2023 Cholesterol in HDL [Mass/Vol] 42 mg/dL 23-92 [facility] Comment on above: HDL CHOL ATP-III CLA SSIFICATION Cardiovascular RiskHDL > or equal to 60 mg/dL LOWHDL < 40 mg/dL HIGH Serum or plasma total choles terol/high density lipoprotein (HDL) cholesterol mass ratOrdered By: Ayanna Vicente on 04-09-2023 Cholesterol.total/Choles terol in HDL [Mass ratio] 3.3 {ratio} <5.0 [facility] Sodium [Moles/volume] in Ser um or PlasmaOrdered By: Ayanna Vicente on 04-09-2023 Sodium [Moles/Vol] 140 mmol/L 136-145 [facility] Thyrotropin [Units/volume] i n Serum or PlasmaOrdered By: Ayanna Vicente on 04-09-2023 TSH Qn 1.62 m[IU]/L 0.45-5.33 [facility] Thyroxine (T4) free [Mass/vo lume] in Serum or PlasmaOrdered By: Ayanna Vicente on 04-09-2023 Free T4 [Mass/Vol] 0.78 ng/dL 0.61-1.12 [facility] Triglyceride [Mass/volume] i n Serum or PlasmaOrdered By: Ayanna Vicente on 04-09-2023 Triglyceride [Mass/Vol] 349 mg/dL 0-149 F [facility] Comment on above: TRIG ATP III CLASSIF ICATIONTRIG less than 150 mg/dL NormalTRIG 150-199 mg/dL Borderline highTRIG 200-500 mg/dL High TRIG greater than 500 mg/dL Very highStandard traceable to the Center for Disease Conrtrol and Prevention (CDC) test method. Triiodothyronine (T3) Free [ Mass/volume] in Serum or PlasmaOrdered By: Ayanna Vicente on 04-09-2023 Free T3 [Mass/Vol] 2.71 pg/mL 2.50-3.90 [facility] Urea nitrogen [Mass/volume] in Serum or PlasmaOrdered By: Ayanna Vicente on 04-09-2023 Urea nitrogen [Mass/Vol] 28 mg/dL 7- [facility] Variant lymphocytes/100 WBC Manual cnt (Bld)Ordered By: Ayanna Vicente on 04-09-2023 Variant lymphocytes/100 WBC (Bld) 1 % 0-12 [facility] WBC Auto (Bld) [#/Vol]Ordere d By: Ayanna Vicente on 04-09-2023 WBC (Bld) [#/Vol] 15.3 10*3/uL 3.8-11.6 [facility] Alanine aminotransferase [En zymatic activity/volume] in Serum or PlasmaOrdered By: Ayanna Vicente on 09-30-2022 ALT [Catalytic activity/Vol] 25 U/L 7-52 [facility] Albumin [Mass/volume] in Ser um or Plasma by Bromocresol green (BCG) dye binding methoOrdered By: Ayanna Vicente on 09-30-2022 Albumin BCG dye [Mass/Vol] 4.3 g/dL 3.5-5.7 [facility] Alkaline phosphatase [Enzyma tic activity/volume] in Serum or PlasmaOrdered By: Ayanna Vicente on 09-30-2022 ALP [Catalytic activity/Vol] 97 U/L 34-104 [facility] Anisocytosis LM Ql (Bld)Orde red By: Ayanna Vicente on 09-30-2022 Anisocytosis Ql (Bld) Slight [facility] Aspartate aminotransferase [ Enzymatic activity/volume] in Serum or PlasmaOrdered By: Ayanna Vicente on 09-30-2022 AST [Catalytic activity/Vol] 22 U/L 13-39 [facility] Basophils Auto (Bld) [#/Vol] Ordered By: Ayanna Vicente on 09-30-2022 Basophils (Bld) [#/Vol] 0.0 10*3/uL 0.0-0.2 [facility] Basophils/100 WBC Auto (Bld) Ordered By: Ayanna Vicente on 09-30-2022 Basophils/100 WBC (Bld) 0.3 % . F [facility] Bilirubin.total [Mass/volume ] in Serum or PlasmaOrdered By: Ayanna Vicente on 09-30-2022 Bilirubin [Mass/Vol] 0.3 mg/dL 0.3-1.0 [facility] Calcium [Mass/volume] in Ser um or PlasmaOrdered By: Ayanna Vicente on 09-30-2022 Calcium [Mass/Vol] 9.3 mg/dL 8.6-10.3 [facility] Carbon dioxide, total [Moles /volume] in Serum or PlasmaOrdered By: Ayanna Vicente on 09-30-2022 CO2 [Moles/Vol] 30.4 mmol/L 21.0-31.0 [facility] Chloride [Moles/volume] in S ebony or PlasmaOrdered By: Ayanna Vicente on 09-30-2022 Chloride [Moles/Vol] 104 mmol/L 98-107 [facility] Cholesterol [Mass/volume] in Serum or PlasmaOrdered By: Ayanna Vicente on 09-30-2022 Cholesterol [Mass/Vol] 117 mg/dL 140-200 [facility] Comment on above: Chol less than 200 m g/dl low riskChol 201-239 mg/dl borderline riskChol 240 mg/dl and greater high risk Cholesterol in LDL Calc [Mas s/Vol]Ordered By: Ayanna Vicente on 09-30-2022 Cholesterol in LDL [Mass/Vol] 35 mg/dL 0-100 [facility] Comment on above: LDL ATP III CLASSIFI CATIONLDL less than 100 mg/dL OptimalLDL 100-129 mg/dL Near or above optimalLDL 130-159 mg/dL Borderline highLDL 160-189 mg/dL HighLDL greater than 189 mg/dL Very high Cholesterol in VLDL Calc [Ma ss/Vol]Ordered By: Ayanna Vicente on 09-30-2022 Cholesterol in VLDL [Mass/Vol] 43 mg/dL [facility] Creatinine [Mass/volume] in Serum or PlasmaOrdered By: Ayanna Vicente on 09-30-2022 Creatinine [Mass/Vol] 1.25 mg/dL 0.60-1.20 [facility] Eosinophils Auto (Bld) [#/Vo l]Ordered By: Ayanna Vicente on 09-30-2022 Eosinophils (Bld) [#/Vol] 0.3 10*3/uL 0.0-0.45 [facility] Eosinophils/100 WBC Auto (Bl d)Ordered By: Ayanna Vicente on 09-30-2022 Eosinophils/100 WBC (Bld) 2.3 % . [facility] Erythrocyte distribution wid th Auto (RBC) [Ratio]Ordered By: Ayanna Vicente on 09-30-2022 Erythrocyte distribution width (RBC) [Ratio] 15.4 % 11.9-15.3 [facility] Globulin Calc (S) [Mass/Vol] Ordered By: Ayanna Vicente on 09-30-2022 Globulin (S) [Mass/Vol] 2.4 g/dL F [facility] Glucose [Mass/volume] in Ser um or PlasmaOrdered By: Ayanna Vicente on 09-30-2022 Glucose [Mass/Vol] 135 mg/dL 74-109 [facility] Comment on above: ADA recommended refe rence rangeRandom Glucose Reference Range is dependent on time and content of last meal. Glucose of more than 200 mg/dL in a nonstressed, ambulatory subject supports the diagnosis of Diabetes Mellitus. Glucose mean value [Mass/vol ume] in Blood Estimated from glycated hemoglobinOrdered By: Ayanna Vicente on 09-30-2022 Average glucose Estimated from glycated hemoglobin (Bld) [Mass/Vol] 203 mg/dL [facility] Hematocrit Auto (Bld) [Volum e fraction]Ordered By: Ayanna Vicente on 09-30-2022 Hematocrit (Bld) [Volume fraction] 37.0 % 34.0-46.4 [facility] Hemoglobin A1c percentageOrd ered By: Ayanna Vicente on 09-30-2022 HbA1c (Bld) [Mass fraction] 8.7 % 4.3-5.6 [facility] Comment on above: Increased risk for d iabetes: 5.7 - 6.4diabetes: >6.4glycemic control for adults with diabetes: <7.0 Hemoglobin [Mass/volume] in BloodOrdered By: Ayanna Vicente on 09-30-2022 Hemoglobin (Bld) [Mass/Vol] 12.1 g/dL 11.8-15.4 [facility] Laboratory - Chemistry and C hemistry - challengeOrdered By: Ayanna Vicente on 09-30-2022 GFR/1.73 sq M.predicted MDRD (S/P/Bld) [Vol rate/Area] 43.572 mL/min/{1.73_m2} [facility] Leukocytes [#/volume] correc andreina for nucleated erythrocytes in Blood by Automated counOrdered By: Ayanna Vicente on 09-30-2022 WBC corrected for nucl RBC Auto (Bld) [#/Vol] 15.2 10*3/uL 3.8-11.6 [facility] Lymphocytes Auto (Bld) [#/Vo l]Ordered By: Ayanna Vicente on 09-30-2022 Lymphocytes (Bld) [#/Vol] 10.5 10*3/uL 1.00-4.8 [facility] Lymphocytes/100 WBC Auto (Bl d)Ordered By: Ayanna Vicente on 09-30-2022 Lymphocytes/100 WBC (Bld) 69.4 % . [facility] MCH Auto (RBC) [Entitic mass ]Ordered By: Ayanna Vicente on 09-30-2022 MCH (RBC) [Entitic mass] 28.4 pg 24.7-34.3 [facility] MCHC Auto (RBC) [Mass/Vol]Or dered By: Ayanna Vicente on 09-30-2022 MCHC (RBC) [Mass/Vol] 32.7 g/dL 32.0-35.0 [facility] MCV Auto (RBC) [Entitic vol] Ordered By: Ayanna Vicente on 09-30-2022 MCV (RBC) [Entitic vol] 86.9 fL 80-100 [facility] Microalbumin [Mass/volume] i n UrineOrdered By: Ayanna Vicente on 09-30-2022 Albumin DL <= 20 mg/L (U) [Mass/Vol] 1.9 mg/dL 0.0-1.8 [facility] Monocytes Auto (Bld) [#/Vol] Ordered By: Ayanna Vicente on 09-30-2022 Monocytes (Bld) [#/Vol] 0.7 10*3/uL 0.0-0.8 [facility] Monocytes/100 WBC Auto (Bld) Ordered By: Ayanna Vicente on 09-30-2022 Monocytes/100 WBC (Bld) 4.5 % . F [facility] Neutrophils Auto (Bld) [#/Vo l]Ordered By: Ayanna Vicente on 09-30-2022 Neutrophils (Bld) [#/Vol] 3.6 10*3/uL 1.8-7.7 [facility] Neutrophils/100 WBC Auto (Bl d)Ordered By: Ayanna Vicente on 09-30-2022 Neutrophils/100 WBC (Bld) 23.5 % . [facility] No Panel InformationOrdered By: Ayanna Vicente on 09-30-2022 Pharmacy Creatinine Clearance (Chem N/A [facility] Nucleated erythrocytes [Pres ence] in Blood by Automated countOrdered By: Ayanna Vicente on 09-30-2022 Nucleated RBC Auto Ql (Bld) 0.6 /100{WBC} 0-0.5 [facility] Ovalocyte detectionOrdered B y: Ayanna Vicente on 09-30-2022 Ovalocytes LM Ql (Bld) Slight Fi [facility] Platelet adequacy [Presence] in Blood by Light microscopyOrdered By: Ayanna Vicente on 09-30-2022 Platelets LM Ql (Bld) Normal Normal [facility] Platelet mean volume Auto (B ld) [Entitic vol]Ordered By: Ayanna Vicente on 09-30-2022 Platelet mean volume (Bld) [Entitic vol] 8.9 fL 6.3-10.7 [facility] Platelet morphology finding [Identifier] in BloodOrdered By: Ayanna Vicente on 09-30-2022 Platelet morphology finding Nom (Bld) Normal Normal [facility] Platelets Auto (Bld) [#/Vol] Ordered By: Ayanna Vicente on 09-30-2022 Platelets (Bld) [#/Vol] 230 10*3/uL 150-450 [facility] Poikilocytosis [Presence] in Blood by Light microscopyOrdered By: Ayanna Vicente on 09-30-2022 Poikilocytosis LM Ql (Bld) Slight [facility] Potassium [Moles/volume] in Serum or PlasmaOrdered By: Ayanna Vicente on 09-30-2022 Potassium [Moles/Vol] 4.5 mmol/L 3.5-5.1 [facility] Protein [Mass/volume] in Ser um or PlasmaOrdered By: Ayanna Vicente on 09-30-2022 Protein [Mass/Vol] 6.7 g/dL 6.4-8.9 [facility] RBC Auto (Bld) [#/Vol]Ordere d By: Ayanna Vicente on 09-30-2022 RBC (Bld) [#/Vol] 4.26 10*6/uL 3.60-5.00 [facility] RBC morphologyOrdered By: Vasile angelaaurora Vicente on 09-30-2022 RBC morphology finding Nom (Bld) N/A [facility] Serum or plasma albumin/glob ulin mass ratioOrdered By: Ayanna Vicente on 09-30-2022 Albumin/Globulin [Mass ratio] 1.8 {ratio} [facility] Serum or plasma anion gap de terminationOrdered By: Ayanna Vicente on 09-30-2022 Anion gap [Moles/Vol] 12.1 mmol/L 6.0-15.0 [facility] Serum or plasma high density lipoprotein (HDL) cholesterol measurementOrdered By: Ayanna Vicente on 09-30-2022 Cholesterol in HDL [Mass/Vol] 39 mg/dL 35-85 [facility] Comment on above: HDL CHOL ATP-III CLA SSIFICATION Cardiovascular RiskHDL > or equal to 60 mg/dL LOWHDL < 40 mg/dL HIGH Serum or plasma total choles terol/high density lipoprotein (HDL) cholesterol mass ratOrdered By: Ayanna Vicente on 09-30-2022 Cholesterol.total/Choles terol in HDL [Mass ratio] 3.0 {ratio} <5.0 [facility] Sodium [Moles/volume] in Ser um or PlasmaOrdered By: Ayanna Vicente on 09-30-2022 Sodium [Moles/Vol] 142 mmol/L 136-145 [facility] Thyrotropin [Units/volume] i n Serum or PlasmaOrdered By: Ayanna Vicente on 09-30-2022 TSH Qn 2.04 m[IU]/L 0.45-5.33 [facility] Thyroxine (T4) free [Mass/vo lume] in Serum or PlasmaOrdered By: Ayanna Vicente on 09-30-2022 Free T4 [Mass/Vol] 0.86 ng/dL 0.61-1.12 [facility] Triglyceride [Mass/volume] i n Serum or PlasmaOrdered By: Ayanna Vicente on 09-30-2022 Triglyceride [Mass/Vol] 216 mg/dL 0-149 [facility] Comment on above: TRIG ATP III CLASSIF ICATIONTRIG less than 150 mg/dL NormalTRIG 150-199 mg/dL Borderline highTRIG 200-500 mg/dL High TRIG greater than 500 mg/dL Very highStandard traceable to the Center for Disease Conrtrol and Prevention (CDC) test method. Triiodothyronine (T3) Free [ Mass/volume] in Serum or PlasmaOrdered By: Ayanna Vicente on 09-30-2022 Free T3 [Mass/Vol] 3.13 pg/mL 2.50-3.90 [facility] Urea nitrogen [Mass/volume] in Serum or PlasmaOrdered By: Ayanna Vicente on 09-30-2022 Urea nitrogen [Mass/Vol] 33 mg/dL 7-25 [facility] WBC Auto (Bld) [#/Vol]Ordere d By: Ayanna Vicente on 09-30-2022 WBC (Bld) [#/Vol] 15.2 10*3/uL 3.8-11.6 [facility] No Panel InformationOrdered By: Ayanna Vicente on 04-23-2022 25-Hydroxy Vitamin D Total 49.9 ng/mL 30-100 [facility] Comment on above: VITAMIN D STATUS 25( OH)VITAMIN D RANGE (ng/mL) Deficient <20 Insufficient 20 to <30Sufficient 30 to 100Reference: Nile MF,Joon NC, Chon ROD, et al. Evaluation,treatment, and prevention of vitamin D deficiency; an Endocrine Society clinical practice guideline. JCEM. 2010; 96(7):1911-30. LD LACTATE DEHYDROon 022 LDH [Catalytic activity/Vol] 202 U/L 135 - 214 U/L [facility] Albumin [Mass/volume] in Ser um or PlasmaOrdered By: Ayanna Vicetne on 04-01-2022 Albumin [Mass/Vol] 3.5 g/dL 3.2-5.5 [facility] Basophils Auto (Bld) [#/Vol] Ordered By: Ayanna Vicente on 04-01-2022 Basophils (Bld) [#/Vol] N/A [facility] Basophils/100 WBC Auto (Bld) Ordered By: Ayanna Vicente on 04-01-2022 Basophils/100 WBC (Bld) N/A [facility] Blood anisocytosis detection Ordered By: Ayanna Vicente on 04-01-2022 Anisocytosis Ql (Bld) Slight Fir [facility] Blood hemoglobin measurement (mass/volume)Ordered By: Ayanna Vicente on 04-01-2022 Hemoglobin (Bld) [Mass/Vol] 12.3 g/dL 11.8-15.4 [facility] Blood leukocytes automated c ount (number/volume)Ordered By: Ayanna Viecnte on 04-01-2022 WBC (Bld) [#/Vol] 12.0 10*3/uL 4.5-11.0 [facility] Cerebrospinal fluid unidenti fied cells/100 leukocytesOrdered By: Ayanna Vicente on 04-01-2022 Unidentified cells/100 WBC (CSF) 2 % 0-0 [facility] Comment on above: PRO LYMPHOCYTE Cholesterol [Mass/volume] in Serum or PlasmaOrdered By: Ayanna Vicente on 04-01-2022 Cholesterol [Mass/Vol] 102 mg/dL 140-200 [facility] Comment on above: Chol less than 200 m g/dl low risk Chol 201-239 mg/dl borderline risk Chol 240 mg/dl and greater high risk Chol less than 200 m g/dl low riskChol 201-239 mg/dl borderline riskChol 240 mg/dl and greater high risk Cholesterol in LDL Calc [Mas s/Vol]Ordered By: Ayanna Vicente on 04-01-2022 Cholesterol in LDL [Mass/Vol] 27 mg/dL 0-100 [facility] Comment on above: LDL ATP III [...] 04-01-2022 Cholesterol in VLDL [Mass/Vol] 25 mg/dL [facility] Creatinine and Glomerular fi ltration rate.predicted panel (S/P/Bld)Ordered By: Ayanna Vicente on 04-01-2022 Creatinine [Mass/Vol] 0.84 mg/dL 0.44-1.03 [facility] Eosinophils Auto (Bld) [#/Vo l]Ordered By: Ayanna Vicente on 04-01-2022 Eosinophils (Bld) [#/Vol] N/A [facility] Eosinophils/100 WBC Auto (Bl d)Ordered By: Ayanna Vicente on 04-01-2022 Eosinophils/100 WBC (Bld) N/A [facility] Erythrocyte distribution wid th Auto (RBC) [Ratio]Ordered By: Ayanna Vicente on 04-01-2022 Erythrocyte distribution width (RBC) [Ratio] 17.0 % 11.9-15.3 [facility] Estimated glomerular filtrat ion rate (GFR) non- AmericanOrdered By: Ayanna Vicente on 04-01-2022 GFR/1.73 sq M.predicted among non-blacks MDRD (S/P/Bld) [Vol rate/Area] > 60 mL/Min [facility] Globulin Calc (S) [Mass/Vol] Ordered By: Ayanna Vicente on 04-01-2022 Globulin (S) [Mass/Vol] 2.9 g/dL [facility] Glucose mean value [Mass/vol ume] in Blood Estimated from glycated hemoglobinOrdered By: Ayanna Vicente on 04-01-2022 Average glucose Estimated from glycated hemoglobin (Bld) [Mass/Vol] 255 mg/dL [facility] Hematocrit Auto (Bld) [Volum e fraction]Ordered By: Ayanna Vicente on 04-01-2022 Hematocrit (Bld) [Volume fraction] 37.9 % 34.0-46.4 [facility] Hemoglobin A1c percentageOrd ered By: Ayanna Vicente on 04-01-2022 HbA1c (Bld) [Mass fraction] 10.5 % 4.3-5.6 [facility] Comment on above: Increased risk for d iabetes: 5.7 - 6.4 diabetes: >6.4 glycemic control for adults with diabetes: <7.0 Increased risk for d iabetes: 5.7 - 6.4diabetes: >6.4glycemic control for adults with diabetes: <7.0 Laboratory - Hematology and Cell countsOrdered By: Ayanna Vicente on 09-19-2022 Nucleated RBC/100 WBC (Bld) [Ratio] 0.2 % 0-0.5 [facility] Lymphocytes Auto (Bld) [#/Vo l]Ordered By: Ayanna Vicente on 04-01-2022 Lymphocytes (Bld) [#/Vol] N/A [facility] Lymphocytes/100 WBC Auto (Bl d)Ordered By: Ayanna Vicente on 04-01-2022 Lymphocytes/100 WBC (Bld) N/A [facility] Lymphocytes/100 WBC (Bld) 60 % 18-42 [facility] Lymphocytes/100 WBC Manual c nt (Bld)Ordered By: Ayanna Vicente on 04-01-2022 Lymphocytes/100 WBC (Bld) 3 % 0-12 [facility] MCH Auto (RBC) [Entitic mass ]Ordered By: Ayanna Vicente on 04-01-2022 MCH (RBC) [Entitic mass] 28.3 pg 24.7-34.3 [facility] MCHC Auto (RBC) [Mass/Vol]Or dered By: Ayanna Vicente on 04-01-2022 MCHC (RBC) [Mass/Vol] 32.4 g/dL 32.0-35.0 [facility] MCV Auto (RBC) [Entitic vol] Ordered By: Ayanna Vicente on 04-01-2022 MCV (RBC) [Entitic vol] 87.6 fL 80-100 [facility] Manual blood monocytes/100 l eukocytesOrdered By: Ayanna Vicente on 04-01-2022 Monocytes/100 WBC (Bld) 3 % 1-3 [facility] Monocytes Auto (Bld) [#/Vol] Ordered By: Ayanna Vicente on 04-01-2022 Monocytes (Bld) [#/Vol] N/A [facility] Monocytes/100 WBC Auto (Bld) Ordered By: Ayanna Vicente on 04-01-2022 Monocytes/100 WBC (Bld) N/A [facility] Neutrophils Auto (Bld) [#/Vo l]Ordered By: Ayanna Vicente on 04-01-2022 Neutrophils (Bld) [#/Vol] N/A [facility] Neutrophils/100 WBC Auto (Bl d)Ordered By: Ayanna Vicente on 04-01-2022 Neutrophils/100 WBC (Bld) N/A [facility] No Panel InformationOrdered By: Ayanna Vicente on 04-01-2022 Estimated GFR () > 60 mL/Min [facility] Comment on above: GFR estimated refere nce range: According to KDOQI guidelines, <60 ml/min/1.73m2 is sufficient to diagnose a patient with chronic kidney disease. Pharmacy Creatinine Clearance (Chem N/A [facility] Platelet Estimate Normal Normal [facility] Platelet Morphology Comment Normal Normal [facility] Smudge Cells Few [facility] Platelet mean volume Auto (B ld) [Entitic vol]Ordered By: Ayanna Vicente on 04-01-2022 Platelet mean volume (Bld) [Entitic vol] 9.3 fL 6.3-10.7 [facility] Platelets Auto (Bld) [#/Vol] Ordered By: Ayanna Vicente on 04-01-2022 Platelets (Bld) [#/Vol] 224 10*3/uL 150-450 [facility] Protein [Mass/volume] in Ser um or PlasmaOrdered By: Ayanna Vicente on 04-01-2022 Protein [Mass/Vol] 6.4 g/dL 6.1-7.9 [facility] RBC Auto (Bld) [#/Vol]Ordere d By: Ayanna Vicente on 04-01-2022 RBC (Bld) [#/Vol] 4.33 10*6/uL 3.60-5.00 [facility] RBC morphologyOrdered By: Vasile Vicente on 04-01-2022 RBC morphology finding Nom (Bld) N/A [facility] Segmented neutrophils/100 WB C Manual cnt (Bld)Ordered By: Ayanna Vicente on 04-01-2022 Segmented neutrophils/100 WBC (Bld) 29 % 50-70 [facility] Serum or plasma alanine roman otransferase measurement without P-5'-P (enzymatic activiOrdered By: Ayanna Vicente on 04-01-2022 ALT No additional P-5'-P [Catalytic activity/Vol] 24 U/L 10-60 [facility] Serum or plasma albumin/glob ulin mass ratioOrdered By: Ayanna Vicente on 04-01-2022 Albumin/Globulin [Mass ratio] 1.2 {ratio} [facility] Serum or plasma alkaline mayelin sphatase measurement (enzymatic activity/volume)Ordered By: Ayanna Vicente on 04-01-2022 ALP [Catalytic activity/Vol] 75 U/L 32-92 [facility] Serum or plasma anion gap de terminationOrdered By: Ayanna Vicente on 04-01-2022 Anion gap [Moles/Vol] 15.8 mmol/L 6.0-15.0 [facility] Serum or plasma aspartate am inotransferase measurement (enzymatic activity/volume)Ordered By: Ayanna Vicente on 04-01-2022 AST [Catalytic activity/Vol] 26 U/L 10-42 [facility] Serum or plasma calcium massimo urement (mass/volume)Ordered By: Ayanna Vicente on 04-01-2022 Calcium [Mass/Vol] 9.3 mg/dL 8.2-10.2 [facility] Serum or plasma chloride chris surement (moles/volume)Ordered By: Ayanna Vicente on 04-01-2022 Chloride [Moles/Vol] 103 mmol/L 95-114 [facility] Serum or plasma glucose massimo urement (mass/volume)Ordered By: Ayanna Vicente on 04-01-2022 Glucose [Mass/Vol] 163 mg/dL 70-100 [facility] Comment on above: ADA recommended refe rence [...] Cholesterol in HDL [Mass/Vol] 50 mg/dL 35-85 [facility] Comment on above: HDL CHOL ATP-III CLA SSIFICATION Cardiovascular Risk HDL > or equal to 60 mg/dL LOW HDL < 40 mg/dL HIGH HDL CHOL ATP-III CLA SSIFICATION Cardiovascular RiskHDL > or equal to 60 mg/dL LOWHDL < 40 mg/dL HIGH Serum or plasma potassium me asurement (moles/volume)Ordered By: Ayanna Vicente on 04-01-2022 Potassium [Moles/Vol] 4.4 mmol/L 3.5-5.1 [facility] Serum or plasma sodium measu rement (moles/volume)Ordered By: Ayanna Vicente on 04-01-2022 Sodium [Moles/Vol] 141 mmol/L 136-146 [facility] Serum or plasma total biliru bin measurement (mass/volume)Ordered By: Ayanna Vicente on 04-01-2022 Bilirubin [Mass/Vol] 0.3 mg/dL 0.3-1.2 [facility] Serum or plasma total carbon dioxide measurement (moles/volume)Ordered By: Ayanna Vicente on 04-01-2022 CO2 [Moles/Vol] 26.6 mmol/L 22.0-30.0 [facility] Serum or plasma total choles terol/high density lipoprotein (HDL) cholesterol mass ratOrdered By: Ayanna Vicente on 04-01-2022 Cholesterol.total/Choles terol in HDL [Mass ratio] 2.0 {ratio} <5.0 [facility] Serum or plasma urea nitroge n measurement (mass/volume)Ordered By: Ayanna Vicente on 04-01-2022 Urea nitrogen [Mass/Vol] 12 mg/dL 9-23 [facility] TSH DL <= 0.005 mIU/L QnOrde red By: Ayanna Vicente on 04-01-2022 TSH Qn 1.11 m[IU]/L 0.45-5.33 [facility] Thyroxine (T4) free [Mass/vo lume] in Serum or PlasmaOrdered By: Ayanna Vicente on 04-01-2022 Free T4 [Mass/Vol] 1.02 ng/dL 0.61-1.12 [facility] Triglyceride [Mass/volume] i n Serum or PlasmaOrdered By: Ayanna Vicente on 04-01-2022 Triglyceride [Mass/Vol] 125 mg/dL 35-149 [facility] Comment on above: TRIG ATP III [...] Mass/volume] in Serum or PlasmaOrdered By: Ayanna Vicenet on 04-01-2022 Free T3 [Mass/Vol] 2.81 pg/mL 2.50-3.90 [facility] Glucose Glucometer (BldC) [M ass/Vol]Ordered By: Galo Max on 01-26-2022 Glucose [Mass/Vol] 117 mg/dL [facility] Comment on above: Random Glucose Refer ence Range is dependent on time and content of last meal. Glucose of more than 200 mg/dL in a nonstressed, ambulatory subject supports the diagnosis of Diabetes Mellitus. Basophils Auto (Bld) [#/Vol] Ordered By: Ashley Ramos on 01-25-2022 Basophils (Bld) [#/Vol] 0.0 10*3/uL 0.0-0.2 [facility] Basophils/100 WBC Auto (Bld) Ordered By: Ashley Ramos on 01-25-2022 Basophils/100 WBC (Bld) 0.3 % . [facility] Blood hemoglobin measurement (mass/volume)Ordered By: Ashley Ramos on 01-25-2022 Hemoglobin (Bld) [Mass/Vol] 11.0 g/dL 11.8-15.4 [facility] Blood leukocytes automated c ount (number/volume)Ordered By: Ashley Ramos on 01-25-2022 WBC (Bld) [#/Vol] 9.5 10*3/uL 4.5-11.0 [facility] Creatinine and Glomerular fi ltration rate.predicted panel (S/P/Bld)Ordered By: Ashley Ramos on 01-25-2022 Creatinine [Mass/Vol] 0.78 mg/dL 0.44-1.03 [facility] Eosinophils Auto (Bld) [#/Vo l]Ordered By: Ashley Ramos on 01-25-2022 Eosinophils (Bld) [#/Vol] 0.3 10*3/uL 0.0-0.45 [facility] Eosinophils/100 WBC Auto (Bl d)Ordered By: Ashley Ramos on 01-25-2022 Eosinophils/100 WBC (Bld) 3.6 % . [facility] Erythrocyte distribution wid th Auto (RBC) [Ratio]Ordered By: Ashley Ramos on 01-25-2022 Erythrocyte distribution width (RBC) [Ratio] 15.4 % 11.9-15.3 [facility] Estimated glomerular filtrat ion rate (GFR) non- AmericanOrdered By: Ashley Ramos on 01-25-2022 GFR/1.73 sq M.predicted among non-blacks MDRD (S/P/Bld) [Vol rate/Area] > 60 mL/Min [facility] Hematocrit Auto (Bld) [Volum e fraction]Ordered By: Aslhey Ramos on 01-25-2022 Hematocrit (Bld) [Volume fraction] 33.2 % 34.0-46.4 [facility] Laboratory - Hematology and Cell countsOrdered By: Ashley Ramos on 01-25-2022 Nucleated RBC/100 WBC (Bld) [Ratio] 0.2 % 0-0.5 [facility] Lymphocytes Auto (Bld) [#/Vo l]Ordered By: Ashley Ramos on 01-25-2022 Lymphocytes (Bld) [#/Vol] 6.4 10*3/uL 1.00-4.8 [facility] Lymphocytes/100 WBC Auto (Bl d)Ordered By: Ashley Ramos on 01-25-2022 Lymphocytes/100 WBC (Bld) 67.6 % . [facility] MCH Auto (RBC) [Entitic mass ]Ordered By: Ashley Ramos on 01-25-2022 MCH (RBC) [Entitic mass] 28.7 pg 24.7-34.3 [facility] MCHC Auto (RBC) [Mass/Vol]Or dered By: Ashley Ramos on 01-25-2022 MCHC (RBC) [Mass/Vol] 33.3 g/dL 32.0-35.0 [facility] MCV Auto (RBC) [Entitic vol] Ordered By: Ashley Ramos on 01-25-2022 MCV (RBC) [Entitic vol] 86.3 fL 80-100 [facility] Monocytes Auto (Bld) [#/Vol] Ordered By: Ashley Ramos on 01-25-2022 Monocytes (Bld) [#/Vol] 0.7 10*3/uL 0.0-0.8 [facility] Monocytes/100 WBC Auto (Bld) Ordered By: Ashley Ramos on 01-25-2022 Monocytes/100 WBC (Bld) 7.4 % . [facility] Neutrophils Auto (Bld) [#/Vo l]Ordered By: Ashley Ramos on 01-25-2022 Neutrophils (Bld) [#/Vol] 2.0 10*3/uL 1.8-7.7 [facility] Neutrophils/100 WBC Auto (Bl d)Ordered By: Ashley Ramos on 01-25-2022 Neutrophils/100 WBC (Bld) 21.1 % . [facility] No Panel InformationOrdered By: Ashley Ramos on 01-25-2022 Estimated GFR () > 60 mL/Min [facility] Comment on above: GFR estimated refere nce range: According to KDOQI guidelines, <60 ml/min/1.73m2 is sufficient to diagnose a patient with chronic kidney disease. Pharmacy Creatinine Clearance (Chem 76.46 [facility] Platelet Estimate Normal Normal [facility] Platelet Morphology Comment Normal Normal [facility] Smudge Cells Few [facility] Platelet mean volume Auto (B ld) [Entitic vol]Ordered By: Ashley Ramos on 01-25-2022 Platelet mean volume (Bld) [Entitic vol] 8.6 fL 6.3-10.7 [facility] Platelets Auto (Bld) [#/Vol] Ordered By: Ashley Ramos on 01-25-2022 Platelets (Bld) [#/Vol] 240 10*3/uL 150-450 [facility] RBC Auto (Bld) [#/Vol]Ordere d By: Ashley Ramos on 01-25-2022 RBC (Bld) [#/Vol] 3.84 10*6/uL 3.60-5.00 [facility] RBC morphologyOrdered By: Kendall Ramos on 01-25-2022 RBC morphology finding Nom (Bld) Normal [facility] Serum or plasma calcium massimo urement (mass/volume)Ordered By: Ashley Ramos on 01-25-2022 Calcium [Mass/Vol] 8.7 mg/dL 8.2-10.2 [facility] Serum or plasma chloride chris surement (moles/volume)Ordered By: Ashley Ramos on 01-25-2022 Chloride [Moles/Vol] 101 mmol/L 95-114 [facility] Serum or plasma glucose massimo urement (mass/volume)Ordered By: Ashley Ramos on 01-25-2022 Glucose [Mass/Vol] 133 mg/dL 70-100 [facility] Comment on above: ADA recommended refe rence [...] on 01-25-2022 Potassium [Moles/Vol] 4.0 mmol/L 3.5-5.1 [facility] Serum or plasma sodium measu rement (moles/volume)Ordered By: Ashley Ramos on 01-25-2022 Sodium [Moles/Vol] 141 mmol/L 136-146 [facility] Serum or plasma total carbon dioxide measurement (moles/volume)Ordered By: Ashley Ramos on 01-25-2022 CO2 [Moles/Vol] 30.7 mmol/L 22.0-30.0 [facility] Serum or plasma urea nitroge n measurement (mass/volume)Ordered By: Ashley Ramos on 01-25-2022 Urea nitrogen [Mass/Vol] 14 mg/dL 9-23 [facility] No Panel InformationOrdered By: Galo Max on 01-24-2022 Bedside Glucose Comment Glu2: cleaned meter [facility] Bacterial blood cultureOrder ed By: James Redding on 01-18-2022 Bacteria identified Cx Nom (Bld) NO GROWTH 5 DAYS [facility] Albumin [Mass/volume] in Ser um or PlasmaOrdered By: Galo Max on 01-16-2022 Albumin [Mass/Vol] 3.1 g/dL 3.2-5.5 [facility] Blood acanthocytes detection by light microscopyOrdered By: Galo Max on 01-16-2022 Acanthocytes LM Ql (Bld) Rare [facility] Globulin Calc (S) [Mass/Vol] Ordered By: Galo Max on 01-16-2022 Globulin (S) [Mass/Vol] 3.0 g/dL [facility] No Panel InformationOrdered By: Galo Max on 01-16-2022 CBC Comment See comment [facility] Comment on above: Slide referred to joshua thologist for review Protein [Mass/volume] in Ser um or PlasmaOrdered By: Galo Max on 01-16-2022 Protein [Mass/Vol] 6.1 g/dL 6.1-7.9 [facility] Serum or plasma alanine roman otransferase measurement without P-5'-P (enzymatic activiOrdered By: Galo Max on 01-16-2022 ALT No additional P-5'-P [Catalytic activity/Vol] 24 U/L 10-60 [facility] Serum or plasma albumin/glob ulin mass ratioOrdered By: Galo Max on 01-16-2022 Albumin/Globulin [Mass ratio] 1.0 {ratio} [facility] Serum or plasma alkaline mayelin sphatase measurement (enzymatic activity/volume)Ordered By: Galo Max on 01-16-2022 ALP [Catalytic activity/Vol] 88 U/L 32-92 [facility] Serum or plasma aspartate am inotransferase measurement (enzymatic activity/volume)Ordered By: Galo Max on 01-16-2022 AST [Catalytic activity/Vol] 23 U/L 10-42 [facility] Serum or plasma prealbumin m easurement (mass/volume)Ordered By: Galo Max on 01-16-2022 Prealbumin [Mass/Vol] 22.1 mg/dL 18.0-38.0 [facility] Serum or plasma total biliru bin measurement (mass/volume)Ordered By: Galo Max on 01-16-2022 Bilirubin [Mass/Vol] 0.6 mg/dL 0.3-1.2 [facility] Creatinine and Glomerular fi ltration rate.predicted panel (S/P/Bld)Ordered By: Bertram Garrison on 01-15-2022 Creatinine [Mass/Vol] 0.80 mg/dL 0.44-1.03 [facility] Comment on above: Delta: 1.35 on 01/14 Estimated glomerular filtrat ion rate (GFR) non- AmericanOrdered By: Bertram Garrison on 01-15-2022 GFR/1.73 sq M.predicted among non-blacks MDRD (S/P/Bld) [Vol rate/Area] > 60 mL/Min [facility] Glucose Glucometer (BldC) [M ass/Vol]Ordered By: Bertram Garrison on 01-15-2022 Glucose [Mass/Vol] 226 mg/dL [facility] Comment on above: Random Glucose Refer ence Range is dependent on time and content of last meal. Glucose of more than 200 mg/dL in a nonstressed, ambulatory subject supports the diagnosis of Diabetes Mellitus. No Panel InformationOrdered By: Bertram Garrison on 01-15-2022 Bedside Glucose Comment Glu2: cleaned meter [facility] Estimated GFR () > 60 mL/Min [facility] Comment on above: GFR estimated refere nce range: According to KDOQI guidelines, <60 ml/min/1.73m2 is sufficient to diagnose a patient with chronic kidney disease. Pharmacy Creatinine Clearance (Chem 75.85 [facility] Serum or plasma calcium massimo urement (mass/volume)Ordered By: Bertram Garrison on 01-15-2022 Calcium [Mass/Vol] 9.2 mg/dL 8.2-10.2 [facility] Serum or plasma chloride chris surement (moles/volume)Ordered By: Bertram Garrison on 01-15-2022 Chloride [Moles/Vol] 99 mmol/L 95-114 [facility] Serum or plasma glucose massimo urement (mass/volume)Ordered By: Bertram Garrison on 01-15-2022 Glucose [Mass/Vol] 293 mg/dL 70-100 [facility] Comment on above: ADA recommended refe rence range Random Glucose Reference Range is dependent on time and content of last meal. Glucose of more than 200 mg/dL in a nonstressed, ambulatory subject supports the diagnosis of Diabetes Mellitus. Serum or plasma potassium me asurement (moles/volume)Ordered By: Bertram Garrison on 01-15-2022 Potassium [Moles/Vol] 4.3 mmol/L 3.5-5.1 [facility] Serum or plasma sodium measu rement (moles/volume)Ordered By: Bertram Garrison on 01-15-2022 Sodium [Moles/Vol] 136 mmol/L 136-146 [facility] Serum or plasma total carbon dioxide measurement (moles/volume)Ordered By: Bertram Garrison on 01-15-2022 CO2 [Moles/Vol] 29.1 mmol/L 22.0-30.0 [facility] Serum or plasma urea nitroge n measurement (mass/volume)Ordered By: Bertram Garrison on 01-15-2022 Urea nitrogen [Mass/Vol] 23 mg/dL 9-23 [facility] Urine culture routineOrdered By: James Redding on 01-15-2022 Bacteria identified Cx Nom (U) Enterococcus faecalis [facility] Basophils Auto (Bld) [#/Vol] Ordered By: Bertram Garrison on 01-14-2022 Basophils (Bld) [#/Vol] 0.1 10*3/uL 0.0-0.2 [facility] Basophils/100 WBC Auto (Bld) Ordered By: Bertram Garrison on 01-14-2022 Basophils/100 WBC (Bld) 0.6 % . [facility] Blood acanthocytes detection by light microscopyOrdered By: Bertram Garrison on 01-14-2022 Acanthocytes LM Ql (Bld) Few [facility] Blood hemoglobin measurement (mass/volume)Ordered By: Bertram Garrison on 01-14-2022 Hemoglobin (Bld) [Mass/Vol] 11.7 g/dL 11.8-15.4 [facility] Blood leukocytes automated c ount (number/volume)Ordered By: Bertram Garrison on 01-14-2022 WBC (Bld) [#/Vol] 11.5 10*3/uL 4.5-11.0 [facility] Eosinophils Auto (Bld) [#/Vo l]Ordered By: Bertram Garrison on 01-14-2022 Eosinophils (Bld) [#/Vol] 0.4 10*3/uL 0.0-0.45 [facility] Eosinophils/100 WBC Auto (Bl d)Ordered By: Bertram Garrison on 01-14-2022 Eosinophils/100 WBC (Bld) 3.3 % . [facility] Erythrocyte distribution wid th Auto (RBC) [Ratio]Ordered By: Bertram Garrison on 01-14-2022 Erythrocyte distribution width (RBC) [Ratio] 14.4 % 11.9-15.3 [facility] Hematocrit Auto (Bld) [Volum e fraction]Ordered By: Bertram Garrison on 01-14-2022 Hematocrit (Bld) [Volume fraction] 35.4 % 34.0-46.4 [facility] Laboratory - Hematology and Cell countsOrdered By: Bertram Garrison on 01-14-2022 Nucleated RBC/100 WBC (Bld) [Ratio] 0.3 % 0-0.5 [facility] Lymphocytes Auto (Bld) [#/Vo l]Ordered By: Bertram Garrison on 01-14-2022 Lymphocytes (Bld) [#/Vol] 7.2 10*3/uL 1.00-4.8 [facility] Lymphocytes/100 WBC Auto (Bl d)Ordered By: Bertram Garrison on 01-14-2022 Lymphocytes/100 WBC (Bld) 62.9 % . [facility] MCH Auto (RBC) [Entitic mass ]Ordered By: Bertram Garrison on 01-14-2022 MCH (RBC) [Entitic mass] 28.4 pg 24.7-34.3 [facility] MCHC Auto (RBC) [Mass/Vol]Or dered By: Bertram Garrison on 01-14-2022 MCHC (RBC) [Mass/Vol] 32.9 g/dL 32.0-35.0 [facility] MCV Auto (RBC) [Entitic vol] Ordered By: Bertram Garrison on 01-14-2022 MCV (RBC) [Entitic vol] 86.1 fL 80-100 F [facility] Monocytes Auto (Bld) [#/Vol] Ordered By: Bertram Garrison on 01-14-2022 Monocytes (Bld) [#/Vol] 0.6 10*3/uL 0.0-0.8 [facility] Monocytes/100 WBC Auto (Bld) Ordered By: Bertram Garrison on 01-14-2022 Monocytes/100 WBC (Bld) 5.0 % . F [facility] Neutrophils Auto (Bld) [#/Vo l]Ordered By: Bertram Garrison on 01-14-2022 Neutrophils (Bld) [#/Vol] 3.2 10*3/uL 1.8-7.7 [facility] Neutrophils/100 WBC Auto (Bl d)Ordered By: Bertram Garrison on 01-14-2022 Neutrophils/100 WBC (Bld) 28.2 % . [facility] No Panel InformationOrdered By: Bertram Garrison on 01-14-2022 Platelet Estimate Normal Normal [facility] Platelet Morphology Comment Normal Normal [facility] Platelet mean volume Auto (B ld) [Entitic vol]Ordered By: Bertram Garrison on 01-14-2022 Platelet mean volume (Bld) [Entitic vol] 9.8 fL 6.3-10.7 [facility] Platelets Auto (Bld) [#/Vol] Ordered By: Bertram Garrison on 01-14-2022 Platelets (Bld) [#/Vol] 277 10*3/uL 150-450 [facility] RBC Auto (Bld) [#/Vol]Ordere d By: Bertram Garrison on 01-14-2022 RBC (Bld) [#/Vol] 4.11 10*6/uL 3.60-5.00 [facility] RBC morphologyOrdered By: New Garrison on 01-14-2022 RBC morphology finding Nom (Bld) Normal [facility] Albumin [Mass/volume] in Ser um or PlasmaOrdered By: James Redding on 01-13-2022 Albumin [Mass/Vol] 3.1 g/dL 3.2-5.5 [facility] Automated erythrocytes count in urine sediment (number/area)Ordered By: James Redding on 01-13-2022 RBC Auto (Urine sed) [#/Area] 0-1 [HPF] 0-4 [facility] Automated leukocytes count i n urine sediment (number/area)Ordered By: James Redding on 01-13-2022 WBC Auto (Urine sed) [#/Area] 50-100 [HPF] 0-4 [facility] Bilirubin Test strip Ql (U)O rdered By: James Redding on 01-13-2022 Bilirubin Ql (U) 1+ Negative [facility] COVID-19 Positive/NegativeOr dered By: James Redding on 01-13-2022 SARS-CoV-2 (COVID-19) N gene FARRAH+probe Ql (Resp) Negative Negative [facility] Comment on above: Testing for SARS-CoV -2 by RT-PCR This test was developed and its performance characteristics determined by [employer] and validated at the [facility]. This test has not been FDA [...] (COVID-19) Ag IA.rapid Ql (Resp) Negative Negative [facility] Comment on above: This is a duplicate Brianna SARS Antigen (DUSTIN) result to be used for statistical tracking purpose only. Color Auto (U)Ordered By: Anni Redding on 01-13-2022 Color (U) Dark yellow Yellow [facility] Globulin Calc (S) [Mass/Vol] Ordered By: James Redding on 01-13-2022 Globulin (S) [Mass/Vol] 3.0 g/dL F [facility] Ketones Auto test strip (U) [Mass/Vol]Ordered By: James Redding on 01-13-2022 Ketones (U) [Mass/Vol] Trace Negative [facility] - UrinalysisOrder ed By: James Redding on 01-13-2022 Hyaline casts LM Ql (Urine sed) 9-19 [LPF] 0-8 [facility] Nitrite Test strip Ql (U)Ord ered By: James Redding on 01-13-2022 Nitrite Ql (U) Negative Negative [facility] No Panel InformationOrdered By: James Redding on 01-13-2022 Smudge Cells Few [facility] SARS Antigen (LFIA) [facility] Protein Auto test strip (U) [Mass/Vol]Ordered By: James Redding on 01-13-2022 Protein (U) [Mass/Vol] 30 mg/dL Negative [facility] Protein [Mass/volume] in Ser um or PlasmaOrdered By: James Redding on 01-13-2022 Protein [Mass/Vol] 6.1 g/dL 6.1-7.9 [facility] Serum or plasma alanine roman otransferase measurement without P-5'-P (enzymatic activiOrdered By: James Redding on 01-13-2022 ALT No additional P-5'-P [Catalytic activity/Vol] 27 U/L 10-60 [facility] Serum or plasma albumin/glob ulin mass ratioOrdered By: James Redding on 01-13-2022 Albumin/Globulin [Mass ratio] 1.0 {ratio} [facility] Serum or plasma alkaline mayelin sphatase measurement (enzymatic activity/volume)Ordered By: James Redding on 01-13-2022 ALP [Catalytic activity/Vol] 95 U/L 32-92 [facility] Serum or plasma aspartate am inotransferase measurement (enzymatic activity/volume)Ordered By: James Redding on 01-13-2022 AST [Catalytic activity/Vol] 27 U/L 10-42 [facility] Serum or plasma total biliru bin measurement (mass/volume)Ordered By: James Redding on 01-13-2022 Bilirubin [Mass/Vol] 0.6 mg/dL 0.3-1.2 [facility] Specific gravity Auto test s trip (U) [Rel density]Ordered By: James Redding on 01-13-2022 Specific gravity (U) [Rel density] 1.029 1.001-1.030 [facility] Squamous epithelial cells de tection in urine sediment by light microscopyOrdered By: James Redding on 01-13-2022 Epithelial cells.squamous LM Ql (Urine sed) 1-2 [HPF] 0-1 [facility] Troponin I.cardiac [Mass/vol ume] in Serum or Plasma by High sensitivity methodOrdered By: James Redding on 01-13-2022 Troponin I.cardiac High sensitivity method [Mass/Vol] 4 pg/mL 0-15 [facility] Urine bacteria detection by automated methodOrdered By: James Redding on 01-13-2022 Bacteria Auto Ql (U) 2+ None Seen [facility] Urine clarity by refractomet ry automatedOrdered By: James Redding on 01-13-2022 Clarity Refractometry automated (U) Cloudy Clear [facility] Urine glucose measurement by automated test strip (mass/volume)Ordered By: James Redding on 01-13-2022 Glucose Auto test strip (U) [Mass/Vol] Normal mg/dL Normal [facility] Urine hemoglobin detection b y automated test stripOrdered By: James Redding on 01-13-2022 Hemoglobin Auto test strip Ql (U) Negative Negative [facility] Urine leukocyte esterase det ection by automated test stripOrdered By: James Redding on 01-13-2022 Leukocyte esterase Auto test strip Ql (U) 3+ Negative [facility] Urobilinogen Auto test strip (U) [Mass/Vol]Ordered By: James Redding on 01-13-2022 Urobilinogen (U) [Mass/Vol] Normal mg/dL Normal [facility] pH Auto test strip (U)Ordere d By: James Redding on 01-13-2022 pH (U) 5.0 [pH] 5.0-9.0 [facility] CARDIAC STRESS/REST INJE CTIONon 01-04-2021 [facility] CARDIAC STRESS/REST INJECTION Patient Name: KATHY WASHBURN STUDY: MYOCARDIAL PERFUSION STRESS TEST WITH LEXISCAN Performing facility: [facility], [address] [place] [address], [address] Provider: Osmel Fernandes MD, FACC PCP: Dr. Lyndon Vicente Supervising provider: Osmel Fernandes MD, FACC INDICATION: Chest Pain; HTN Hyperlipidemia Diabetes Dyspnea HISTORY: Gender: F; Age: 80 y/o ; Height: 175.26 cm; Weight: [phone] kg. High Cholesterol; Diabetes; HTN; Chest Pain; SOB; Quit smoking Unknown years ago. COMPARISON: Previous nuclear testing completed at [facility]. ACCESSION NUMBER(S): [id number]; [id number]; [id number] ORDERING CLINICIAN: MONET FERNANDES TECHNIQUE: ONE DAY [...] comparison. Electronically signed by: SARAH HODGES MD [facility] Vital Signs Date Time Vital Sign Value Performing Clinician Faci lity 02-15-2025 14:44-0400 Body height 175.26 cm Ayanna Vicente DO Work Phone: [facility] 02-15-2025 14:44-0400 Body mass index (BMI) [Ratio] 34 kg/m2 Ayanna Vicente DO Work Phone: [facility] 02-15-2025 14:44-0400 Body temperature 98.3 [degF] yAanna Vicente DO Work Phone: [facility] 02-15-2025 14:44-0400 Body weight 104.32 kg Ayanna Vicente DO Work Phone: [facility] 02-15-2025 14:44-0400 Diastolic blood pressure 82 mm[Hg] Ayanna Vicente DO Work Phone: [facility] 02-15-2025 14:44-0400 Heart rate 79 /min Ayanna Vicente DO Work Phone: [facility] 02-15-2025 14:44-0400 SaO2% (BldA) [Mass fraction] 92 % Ayanna Vicente DO Work Phone: [facility] 02-15-2025 14:44-0400 Systolic blood pressure 120 mm[Hg] Ayanna Vicente DO Work Phone: [facility] 01-27-2025 13:56-0400 Body height 175.26 cm Ayanna Girvin DO Work Phone: [facility] 01-27-2025 13:56-0400 Body mass index (BMI) [Ratio] 33.5 kg/m2 Ayanna Vicente DO Work Phone: [facility] 01-27-2025 13:56-0400 Body weight 103.02 kg Ayanna Vicente DO Work Phone: [facility] 01-27-2025 13:56-0400 Diastolic blood pressure 74 mm[Hg] Ayanna Vicente DO Work Phone: [facility] 01-27-2025 13:56-0400 Heart rate 59 /min Ayanna Vicente DO Work Phone: [facility] 01-27-2025 13:56-0400 Respiratory rate 16 /min Ayanna Vicente DO Work Phone: [facility] 01-27-2025 13:56-0400 SaO2% (BldA) [Mass fraction] 94 % Ayanna Vicente DO Work Phone: [facility] 01-27-2025 13:56-0400 Systolic blood pressure 122 mm[Hg] Ayanna Vicente DO Work Phone: [facility] 01-12-2025 13:23-0400 Body height 175.3 cm Moe Itzkowitz DO Work Phone: [facility] 01-12-2025 13:23-0400 Body mass index (BMI) [Ratio] 33.23 kg/m2 Moe Itzkowitz DO Work Phone: [facility] 01-12-2025 13:23-0400 Body weight 102.06 kg Moe Itzkowitz DO Work Phone: [facility] 01-12-2025 13:23-0400 Diastolic blood pressure 76 mm[Hg] Moe Itzkowitz DO Work Phone: [facility] 01-12-2025 13:23-0400 Systolic blood pressure 122 mm[Hg] Moe Itzkowitz DO Work Phone: [facility] 12-17-2024 10:270400 Body height 172.7 cm Zohaib German MD Work Phone: [facility] 12-17-2024 10:27-0400 Body mass index (BMI) [Ratio] 34.74 kg/m2 Zohaib German MD Work Phone: [facility] 12-17-2024 10:27-0400 Body temperature 64.99 [degF] Zohaib German MD Work Phone: [facility] 12-17-2024 10:270400 Body weight 103.6 kg Zohaib German MD Work Phone: [facility] 12-17-2024 10:27-0400 Diastolic blood pressure 71 mm[Hg] Zohaib German MD Work Phone: [facility] 12-17-2024 10:27-0400 Systolic blood pressure 112 mm[Hg] Zohaib German MD Work Phone: [facility] 12-16-2024 14:210400 Body height 175.26 cm [facility] 12-16-2024 14:21-0400 Body mass index (BMI) [Ratio] 34.9 kg/m2 [facility] 12-16-2024 14:21-0400 Body temperature 96.9 [degF] [facility] 12-16-2024 14:21-0400 Body weight 107.5 kg [facility] 12-16-2024 14:21-0400 Diastolic blood pressure 69 mm[Hg] [facility] 12-16-2024 14:21-0400 Heart rate 68 /min [facility] 12-16-2024 14:21-0400 Respiratory rate 18 /min [facility] 12-16-2024 14:21-0400 SaO2% (BldA) [Mass fraction] 92 % [facility] 12-16-2024 14:21-0400 Systolic blood pressure 104 mm[Hg] [facility] 11-10-2024 15:40-0400 Body height 175.26 cm [facility] 11-10-2024 15:40-0400 Body mass index (BMI) [Ratio] 32.9 kg/m2 [facility] 11-10-2024 15:40-0400 Body temperature 97.3 [degF] [facility] 11-10-2024 15:40-0400 Body weight 101.15 kg [facility] 11-10-2024 15:40-0400 Diastolic blood pressure 84 mm[Hg] [facility] 11-10-2024 15:40-0400 Heart rate 74 /min [facility] 11-10-2024 15:40-0400 SaO2% (BldA) [Mass fraction] 94 % [facility] 11-10-2024 15:40-0400 Systolic blood pressure 132 mm[Hg] [facility] 08-16-2024 09:06-0500 Diastolic blood pressure 58 mm[Hg] SUSAN JAX [facility] 08-16-2024 09:06-0500 Heart rate 69 /min SUSAN JAX [facility] 08-16-2024 09:06-0500 Respiratory rate 16 /min SUSAN JAX [facility] 08-16-2024 09:06-0500 Systolic blood pressure 92 mm[Hg] SUSAN JAX [facility] 08-09-2024 14:16-0500 Body mass index (BMI) [Ratio] 32.93 kg/m2 Esvin Dubon NP Work Phone: [facility] 08-09-2024 14:16-0500 Body weight 101.15 kg Esvin Dubon [employer] AUDIT CLERK Work Phone: [facility] 08-09-2024 14:16-0500 Diastolic blood pressure 87 mm[Hg] Esvin Dubon CHARGE ACCOUNTS AUDIT CLERK Work Phone: [facility] 08-09-2024 14:16-0500 Heart rate 64 /min Esvin Dubon [employer] ACCOUNTS AUDIT CLERK Work Phone: [facility] 08-09-2024 14:16-0500 Systolic blood pressure 125 mm[Hg] Esvin Dubon [employer] ACCOUNTS AUDIT CLERK Work Phone: [facility] 06-23-2024 14:34-0500 Body height 175.3 cm Moe Itzkowitz DO Work Phone: [facility] 06-23-2024 14:34-0500 Body mass index (BMI) [Ratio] 33.67 kg/m2 Moe Itzkowitz DO Work Phone: [facility] 06-23-2024 14:34-0500 Body weight 103.42 kg Moe Itzkowitz DO Work Phone: [facility] 06-23-2024 14:34-0500 Diastolic blood pressure 85 mm[Hg] Moe Itzkowitz DO Work Phone: [facility] 06-23-2024 14:34-0500 Systolic blood pressure 135 mm[Hg] Moe Itzkowitz DO Work Phone: [facility] 06-17-2024 13:58-0500 Body mass index (BMI) [Ratio] 33.82 kg/m2 Christopher Aundrea DO Work Phone: [facility] 06-17-2024 13:58-0500 Body weight 103.87 kg Christopher Aundrea DO Work Phone: [facility] 06-17-2024 13:58-0500 Diastolic blood pressure 74 mm[Hg] Christopher Aundrea DO Work Phone: [facility] 06-17-2024 13:58-0500 Heart rate 84 /min Christopher Aundrea DO Work Phone: [facility] 06-17-2024 13:58-0500 SaO2% (BldA) [Mass fraction] 90 % Christopher Aundrea DO Work Phone: [facility] 06-17-2024 13:58-0500 Systolic blood pressure 138 mm[Hg] Primoalicia Guillaume DO Work Phone: [facility] 05-26-2024 13:54-0500 Body height 172.7 cm Chad Freitas MD Work Phone: [facility] 05-26-2024 13:54-0500 Body mass index (BMI) [Ratio] 35.31 kg/m2 Chad Freitas MD Work Phone: [facility] 05-26-2024 13:54-0500 Body temperature 97 [degF] Chad Freitas MD Work Phone: [facility] 05-26-2024 13:54-0500 Body weight 105.33 kg Chad Freitas MD Work Phone: [facility] 05-26-2024 13:54-0500 Diastolic blood pressure 51 mm[Hg] Chad Freitas MD Work Phone: [facility] 05-26-2024 13:54-0500 Heart rate 70 /min Chad Freitas MD Work Phone: [facility] 05-26-2024 13:54-0500 Respiratory rate 16 /min Chad Freitas MD Work Phone: [facility] 05-26-2024 13:54-0500 SaO2% (BldA) [Mass fraction] 91 % Chad Freitas MD Work Phone: [facility] 05-26-2024 13:54-0500 Systolic blood pressure 92 mm[Hg] Chad Freitas MD Work Phone: [facility] 05-17-2024 13:00-0500 Body height 172.7 cm Zohaib German MD Work Phone: [facility] 05-17-2024 13:00-0500 Body mass index (BMI) [Ratio] 34.67 kg/m2 Zohaib German MD Work Phone: [facility] 05-17-2024 13:00-0500 Body weight 103.4 kg Zohaib German MD Work Phone: [facility] 05-17-2024 13:00-0500 Diastolic blood pressure 75 mm[Hg] Zohaib German MD Work Phone: [facility] 05-17-2024 13:00-0500 Heart rate 62 /min Zohaib German MD Work Phone: [facility] 05-17-2024 13:00-0500 Systolic blood pressure 117 mm[Hg] Zohaib German MD Work Phone: [facility] 05-12-2024 13:50-0400 Body height 180.34 cm DO Ayanna Vicente Work Phone: [facility] 05-12-2024 13:50-0400 Body mass index (BMI) [Ratio] 32.2 kg/m2 DO Ayanna Vicente Work Phone: [facility] 05-12-2024 13:50-0400 Body weight 104.77 kg DO Ayanna Vicente Work Phone: [facility] 05-12-2024 13:50-0400 Diastolic blood pressure 57 mm[Hg] DO Ayanna Ogabbi Work Phone: [facility] 05-12-2024 13:50-0400 Heart rate 86 /min DO Ayanna Vicente Work Phone: [facility] 05-12-2024 13:50-0400 SaO2% (BldA) [Mass fraction] 93 % DO Ayanna Vicente Work Phone: [facility] 05-12-2024 13:50-0400 Systolic blood pressure 128 mm[Hg] DO Ayanna Vicente Work Phone: [facility] 05-11-2024 14:45-0400 Body mass index (BMI) [Ratio] 31.9 kg/m2 DO Ayanna Vicente Work Phone: [facility] 05-11-2024 14:45-0400 Body temperature 97.3 [degF] DO Ayanna Vicente Work Phone: [facility] 05-11-2024 14:45-0400 Diastolic blood pressure 70 mm[Hg] DO Ayanna Vicente Work Phone: [facility] 05-11-2024 14:45-0400 Heart rate 76 /min DO Ayanna Vicente Work Phone: [facility] 05-11-2024 14:45-0400 SaO2% (BldA) [Mass fraction] 91 % DO Ayanna Vicente Work Phone: [facility] 05-11-2024 14:45-0400 Systolic blood pressure 116 mm[Hg] DO Ayanna Vicente Work Phone: [facility] 05-11-2024 13:41-0400 Body height 180.34 cm DO Ayanna Vicente Work Phone: [facility] 05-11-2024 13:41-0400 Body weight 103.87 kg DO Ayanna Vicente Work Phone: [facility] 04-05-2024 08:52-0400 Body height 180.34 cm [facility] 04-05-2024 08:52-0400 Body mass index (BMI) [Ratio] 32.3 kg/m2 [facility] 04-05-2024 08:52-0400 Body temperature 97 [degF] [facility] 04-05-2024 08:52-0400 Body weight 105.23 kg [facility] 04-05-2024 08:52-0400 Diastolic blood pressure 62 mm[Hg] [facility] 04-05-2024 08:52-0400 Heart rate 87 /min [facility] 04-05-2024 08:52-0400 SaO2% (BldA) [Mass fraction] 90 % [facility] 04-05-2024 08:52-0400 Systolic blood pressure 98 mm[Hg] [facility] 03-08-2024 14:43-0400 Body height 180.34 cm [facility] 03-08-2024 14:43-0400 Body mass index (BMI) [Ratio] 32.1 kg/m2 [facility] 03-08-2024 14:43-0400 Body temperature 97 [degF] [facility] 03-08-2024 14:43-0400 Body weight 104.32 kg [facility] 03-08-2024 14:43-0400 Diastolic blood pressure 64 mm[Hg] [facility] 03-08-2024 14:43-0400 Heart rate 73 /min [facility] 03-08-2024 14:43-0400 SaO2% (BldA) [Mass fraction] 95 % [facility] 03-08-2024 14:43-0400 Systolic blood pressure 98 mm[Hg] [facility] 02-24-2024 10:15-0400 Body temperature 97.88 [degF] SUSAN JAX [facility] 02-24-2024 10:15-0400 Diastolic blood pressure 42 mm[Hg] SUSAN JAX [facility] 02-24-2024 10:15-0400 Heart rate 68 /min SUSAN JAX [facility] 02-24-2024 10:15-0400 Respiratory rate 16 /min SUSAN JAX [facility] 02-24-2024 10:15-0400 Systolic blood pressure 106 mm[Hg] SUSAN JAX [facility] 02-05-2024 08:08-0400 Body height 180.34 cm [facility] 02-05-2024 08:08-0400 Body mass index (BMI) [Ratio] 32.3 kg/m2 [facility] 02-05-2024 08:08-0400 Body temperature 97.8 [degF] [facility] 02-05-2024 08:08-0400 Body weight 105.23 kg [facility] 02-05-2024 08:08-0400 Diastolic blood pressure 74 mm[Hg] [facility] 02-05-2024 08:08-0400 Heart rate 70 /min [facility] 02-05-2024 08:08-0400 Respiratory rate 18 /min [facility] 02-05-2024 08:08-0400 SaO2% (BldA) [Mass fraction] 98 % [facility] 02-05-2024 08:08-0400 Systolic blood pressure 122 mm[Hg] [facility] 01-12-2024 14:32-0400 Body height 180.34 cm DO Ayanna Vicente Work Phone: [facility] 01-12-2024 14:32-0400 Body mass index (BMI) [Ratio] 30.9 kg/m2 DO Ayanna Vicente Work Phone: [facility] 01-12-2024 14:32-0400 Body temperature 98 [degF] DO Ayanna Vicente Work Phone: [facility] 01-12-2024 14:32-0400 Body weight 100.69 kg DO Ayanna Vicente Work Phone: [facility] 01-12-2024 14:32-0400 Heart rate 61 /min DO Ayanna Vicente Work Phone: [facility] 01-12-2024 14:32-0400 Respiratory rate 18 /min DO Ayanna Vicente Work Phone: [facility] 01-12-2024 14:32-0400 SaO2% (BldA) [Mass fraction] 91 % DO Ayanna Vicente Work Phone: [facility] 10-21-2023 14:45-0400 Body height 180.34 cm DO Ayanna Ogabbi Work Phone: [facility] 10-21-2023 14:45-0400 Body mass index (BMI) [Ratio] 32.5 kg/m2 DO Ayanna Vicente Work Phone: [facility] 10-21-2023 14:45-0400 Body temperature 97.5 [degF] DO Ayanna Vicente Work Phone: [facility] 10-21-2023 14:45-0400 Body weight 105.68 kg DO Ayanna Vicente Work Phone: [facility] 10-21-2023 14:45-0400 Diastolic blood pressure 76 mm[Hg] DO Ayanna Vicente Work Phone: [facility] 10-21-2023 14:45-0400 Respiratory rate 18 /min DO Ayanna Vicente Work Phone: [facility] 10-21-2023 14:45-0400 SaO2% (BldA) [Mass fraction] 92 % DO Ayanna Vicente Work Phone: [facility] 10-21-2023 14:45-0400 Systolic blood pressure 118 mm[Hg] DO Ayanna Vicente Work Phone: [facility] 08-12-2023 14:20-0500 Body height 180.34 cm Homa Mckeon Other [facility] 08-12-2023 14:20-0500 Body mass index (BMI) [Ratio] 32.21 kg/m2 Homa Mckeon Other [facility] [employer] Other 08-12-2023 14:20-0500 Body weight 104.78 kg Homa Mckeon Other [facility] [employer] Other 08-12-2023 14:20-0500 Body weight 104.77 kg DO Ayanna Vicente Work Phone: [facility] 04-15-2023 14:40-0400 Body height 180.34 cm Ayanna Ogabbi Other [facility] [employer] Other 04-15-2023 14:40-0400 Body mass index (BMI) [Ratio] 33.61 kg/m2 Ayanna Sakina Other [employer] Other 04-15-2023 14:40-0400 Body temperature 98.8 [degF] Ayanna Sakina Other [employer] Other 04-15-2023 14:40-0400 Body weight 109.32 kg Ayanna Vicente Other [employer] Other 04-15-2023 14:40-0400 Diastolic blood pressure 82 mm[Hg] Ayanna Vicente Other [employer] Other 04-15-2023 14:40-0400 Respiratory rate 18 /min Ayanna Earleabbi Other [employer] Other 04-15-2023 14:40-0400 SaO2% (BldA) [Mass fraction] 93 % Ayanna Sakina Other [employer] Other 04-15-2023 14:40-0400 Systolic blood pressure 128 mm[Hg] Ayanna Sakina Other [employer] Other 02-25-2023 14:40-0400 Body height 180.34 cm Ayanna Vicente Other [employer] Other 02-25-2023 14:40-0400 Body mass index (BMI) [Ratio] 32.91 kg/m2 Ayanna Earleabbi Other [employer] Other 02-25-2023 14:40-0400 Body temperature 97.9 [degF] Ayanna Vicente Other [employer] Other 02-25-2023 14:40-0400 Body weight 107.05 kg Ayanna Vicente Other [employer] Other 02-25-2023 14:40-0400 Diastolic blood pressure 84 mm[Hg] Ayanna Vicente Other [employer] Other 02-25-2023 14:40-0400 Respiratory rate 18 /min Ayanna Vicente Other [employer] Other 02-25-2023 14:40-0400 SaO2% (BldA) [Mass fraction] 94 % Ayanna Vicente Other [employer] Other 02-25-2023 14:40-0400 Systolic blood pressure 122 mm[Hg] Ayanna Vicente Other [employer] Other 02-11-2023 11:35-0400 Blood Pressure Location SUSAN RANDOLPH [facility] 02-11-2023 11:35-0400 Diastolic blood pressure 67 mm[Hg] SUSAN JAX [facility] 02-11-2023 11:35-0400 Heart rate 70 /min SUSAN KHANRY [facility] 02-11-2023 11:35-0400 Systolic blood pressure 100 mm[Hg] SUSAN JAX [facility] 02-07-2023 13:28-0400 Body height 177.8 cm Santos Lares MD Work Phone: [facility] 02-07-2023 13:28-0400 Body temperature 97.3 [degF] Santos Lares MD Work Phone: [facility] 02-07-2023 13:28-0400 Body weight 107.96 kg Santos Lares MD Work Phone: [facility] 02-07-2023 13:28-0400 Diastolic blood pressure 72 mm[Hg] Santos Lares MD Work Phone: [facility] 02-07-2023 13:28-0400 Heart rate 74 /min Santos Lares MD Work Phone: [facility] 02-07-2023 13:28-0400 Respiratory rate 20 /min Santos Lares MD Work Phone: [facility] 02-07-2023 13:28-0400 SaO2% (BldA) [Mass fraction] 93 % Santos Lares MD Work Phone: [facility] 02-07-2023 13:28-0400 Systolic blood pressure 122 mm[Hg] Santos Lares MD Work Phone: [facility] 07-19-2022 12:17-0500 Body height 177.8 cm Santos Lares MD Work Phone: [facility] 07-19-2022 12:17-0500 Body temperature 98.01 [degF] Santos Lares MD Work Phone: [facility] 07-19-2022 12:17-0500 Body weight 105.6 kg Santos Lares MD Work Phone: [facility] 07-19-2022 12:17-0500 Diastolic blood pressure 71 mm[Hg] Santos Lares MD Work Phone: [facility] 07-19-2022 12:17-0500 Heart rate 72 /min Santos Lares MD Work Phone: [facility] 07-19-2022 12:17-0500 Respiratory rate 16 /min Santos Lares MD Work Phone: [facility] 07-19-2022 12:17-0500 SaO2% (BldA) [Mass fraction] 93 % Santos Lares MD Work Phone: [facility] 07-19-2022 12:17-0500 Systolic blood pressure 111 mm[Hg] Santos Lares MD Work Phone: [facility] 04-18-2022 11:58-0400 Body height 177.8 cm Santos Lares MD Work Phone: [facility] 04-18-2022 11:58-0400 Body temperature 97.81 [degF] Santos Lares MD Work Phone: [facility] 04-18-2022 11:58-0400 Body weight 102.69 kg Santos Lares MD Work Phone: [facility] 04-18-2022 11:58-0400 Diastolic blood pressure 68 mm[Hg] Santos Lares MD Work Phone: [facility] 04-18-2022 11:58-0400 Heart rate 70 /min Santos Lares MD Work Phone: [facility] 04-18-2022 11:58-0400 Respiratory rate 16 /min Santos Lares MD Work Phone: [facility] 04-18-2022 11:58-0400 SaO2% (BldA) [Mass fraction] 99 % Santos Lares MD Work Phone: [facility] 04-18-2022 11:58-0400 Systolic blood pressure 127 mm[Hg] Santos Lares MD Work Phone: [facility] 04-04-2022 10:59-0400 Body height 177.8 cm Santos Lares MD Work Phone: [facility] 04-04-2022 10:59-0400 Body temperature 97.11 [degF] Santos Lares MD Work Phone: [facility] 04-04-2022 10:59-0400 Body weight 103.78 kg Santos Lares MD Work Phone: [facility] 04-04-2022 10:59-0400 Diastolic blood pressure 73 mm[Hg] Santos Lares MD Work Phone: [facility] 04-04-2022 10:59-0400 Heart rate 68 /min Santos Lares MD Work Phone: [facility] 04-04-2022 10:59-0400 Respiratory rate 16 /min Santos Lares MD Work Phone: [facility] 04-04-2022 10:59-0400 SaO2% (BldA) [Mass fraction] 95 % Santos Lares MD Work Phone: [facility] 04-04-2022 10:59-0400 Systolic blood pressure 138 mm[Hg] Santos Lares MD Work Phone: [facility] 04-02-2022 14:20-0400 Body height 180.34 cm Ayanna Vicente Other [employer] Other 04-02-2022 14:20-0400 Body mass index (BMI) [Ratio] 31.73 kg/m2 Ayanna Vicente Other [employer] Other 04-02-2022 14:20-0400 Body temperature 97.2 [degF] Ayanna Vicente Other [employer] Other 04-02-2022 14:20-0400 Body weight 103.19 kg Ayanna Vicente Other [employer] Other 04-02-2022 14:20-0400 Diastolic blood pressure 76 mm[Hg] Ayanna Vicente Other [employer] Other 04-02-2022 14:20-0400 Respiratory rate 18 /min Ayanna Vicente Other [employer] Other 04-02-2022 14:20-0400 SaO2% (BldA) [Mass fraction] 96 % Ayanna Vicente Other [employer] Other 04-02-2022 14:20-0400 Systolic blood pressure 120 mm[Hg] Ayanna Vicente Other [employer] Other 02-06-2022 14:20-0400 Body height 180.34 cm Ayanna Vicente Other [employer] Other 02-06-2022 14:20-0400 Body mass index (BMI) [Ratio] 31.94 kg/m2 Ayanna Vicente Other [employer] Other 02-06-2022 14:20-0400 Body temperature 97.4 [degF] Ayanna Vicente Other [employer] Other 02-06-2022 14:20-0400 Body weight 103.87 kg Ayanna Vicente Other [employer] Other 02-06-2022 14:20-0400 Diastolic blood pressure 68 mm[Hg] Ayanna Vicente Other [employer] Other 02-06-2022 14:20-0400 Respiratory rate 18 /min Ayanna Vicente Other [employer] Other 02-06-2022 14:20-0400 SaO2% (BldA) [Mass fraction] 93 % Ayanna Vicente Other [employer] Other 02-06-2022 14:20-0400 Systolic blood pressure 114 mm[Hg] Ayanna Vicente Other [employer] Other 01-26-2022 05:00-0400 Body temperature 97.6 [degF] DO yAanna Vicente Work Phone: [facility] 01-26-2022 05:00-0400 Diastolic blood pressure 77 mm[Hg] DO Ayanna Vicente Work Phone: [facility] 01-26-2022 05:00-0400 Heart rate 64 /min DO Ayanna Vicente Work Phone: [facility] 01-26-2022 05:00-0400 Respiratory rate 16 /min DO Ayanna Vicente Work Phone: [facility] 01-26-2022 05:00-0400 SaO2% (BldA) [Mass fraction] 94 % DO Ayanna Vicente Work Phone: [facility] 01-26-2022 05:00-0400 Systolic blood pressure 116 mm[Hg] DO Ayanna Vicente Work Phone: [facility] 01-23-2022 06:55-0400 Body height 177.8 cm DO Ayanna Vicente Work Phone: [facility] 01-20-2022 06:00-0400 Body weight 109.6 kg DO Ayanna Vicente Work Phone: [facility] 01-15-2022 17:00-0400 Body mass index (BMI) [Ratio] 33 kg/m2 DO Ayanna Vicente Work Phone: [facility] 01-15-2022 15:40-0400 Body temperature 97.9 [degF] DO Ayanna Vicente Work Phone: [facility] 01-15-2022 15:40-0400 Diastolic blood pressure 88 mm[Hg] DO Ayanna Vicente Work Phone: [facility] 01-15-2022 15:40-0400 Heart rate 72 /min DO Ayanna Vicente Work Phone: [facility] 01-15-2022 15:40-0400 Respiratory rate 18 /min DO Ayanna Vicente Work Phone: [facility] 01-15-2022 15:40-0400 SaO2% (BldA) [Mass fraction] 95 % DO Ayanna Vicente Work Phone: [facility] 01-15-2022 15:40-0400 Systolic blood pressure 128 mm[Hg] DO Ayanna Vicente Work Phone: [facility] 01-15-2022 05:11-0400 Body weight 107.9 kg DO Ayanna Vicente Work Phone: [facility] 01-13-2022 19:52-0400 Body height 177.8 cm DO Ayanna Vicente Work Phone: [facility] 01-13-2022 19:52-0400 Body mass index (BMI) [Ratio] 34.9 kg/m2 DO Ayanna Vicente Work Phone: [facility] 12-27-2021 11:10-0400 Body height 180.34 cm Ayanna Vicente Other [employer] [facility] [employer] Other 12-27-2021 11:10-0400 Body mass index (BMI) [Ratio] 33.12 kg/m2 Ayanna Sakina Other [employer] Other 12-27-2021 11:10-0400 Body temperature 97.3 [degF] Ayanna Vicente Other [employer] Other 12-27-2021 11:10-0400 Body weight 107.73 kg Ayanna Ogabbi Other [employer] Other 12-27-2021 11:10-0400 Diastolic blood pressure 82 mm[Hg] Ayanna Vicente Other [employer] Other 12-27-2021 11:10-0400 Respiratory rate 20 /min Ayanna Vicente Other [employer] Other 12-27-2021 11:10-0400 SaO2% (BldA) [Mass fraction] 93 % Ayanna Vicente Other [employer] Other 12-27-2021 11:10-0400 Systolic blood pressure 124 mm[Hg] Ayanna Vicente Other [employer] Other 12-17-2021 12:00-0400 Body height 180.34 cm Ayanna Clevelandnilton Other [employer] Other 12-17-2021 12:00-0400 Body mass index (BMI) [Ratio] 32.21 kg/m2 Ayanna Milner Other [employer] Other 12-17-2021 12:00-0400 Body weight 104.78 kg Ayanna Milner Other [employer] Other 12-17-2021 12:00-0400 Diastolic blood pressure 56 mm[Hg] Ayanna Clevelandnilton Other [employer] Other 12-17-2021 12:00-0400 Systolic blood pressure 98 mm[Hg] Ayanna Clevelandnilton Other [employer] Other 04-04-2021 14:20-0400 Body height 180.34 cm Ayanna Vicente Other [employer] Other 04-04-2021 14:20-0400 Body mass index (BMI) [Ratio] 32.35 kg/m2 Ayanna Vicente Other [employer] Other 04-04-2021 14:20-0400 Body temperature 97.7 [degF] Ayanna Vicente Other [employer] Other 04-04-2021 14:20-0400 Body weight 105.24 kg Ayanna Vicente Other [employer] Other 04-04-2021 14:20-0400 Diastolic blood pressure 70 mm[Hg] Ayanna Vicente Other [employer] Other 04-04-2021 14:20-0400 Respiratory rate 18 /min Ayanna Vicente Other [employer] Other 04-04-2021 14:20-0400 SaO2% (BldA) [Mass fraction] 97 % Ayanna Vicente Other [employer] Other 04-04-2021 14:20-0400 Systolic blood pressure 114 mm[Hg] Ayanna Vicente Other [employer] Other Encounters Encounter Date Encounter Type Care Provider Facility Start: 10-27-2025 ambulatory Sujey X Orzech Facilit y:[facility] Start: 03-07-2025 End: 03-07-2025 ambulatory Som Azul MD Facility: [facility] Start: 02-28-2025 End: 02-28-2025 ambulatory Som Azul MD Facility: [facility] Start: 02-21-2025 End: 02-21-2025 ambulatory Som Azul MD Facility: [facility] Start: 02-15-2025 End: 02-15-2025 ambulatory Ayanna Vicente DO Work Phone: [facility] Work Phone: Start: 02-15-2025 End: 02-15-2025 Patient encounter procedure Ayanna Vicente DO -[facility] [place] Work Phone: Start: 02-09-2025 Non-patient / Non-visit Cem Azul MD -[email or web address] Work Phone: Start: 02-08-2025 End: 02-08-2025 ambulatory SUSAN RANDOLPH Facility:[facility] [place] Start: 02-08-2025 End: 02-08-2025 Patient encounter procedure SUSAN RANDOLPH [facility] Start: 01-27-2025 End: 01-27-2025 ambulatory Ayanna Vicente DO Work Phone: [facility] Work Phone: Start: 01-27-2025 End: 01-27-2025 Patient encounter procedure Lesli Arevalo MD -[facility] Work Phone: Start: 01-19-2025 End: 01-19-2025 Telephone encounter Moe H Itzkowitz DO Work Phone: [facility] Start: 01-19-2025 End: 01-19-2025 Patient encounter procedure Moe Itzkowitz DO -[facility] Work Phone: Start: 01-19-2025 End: 01-19-2025 ambulatory Ayanna Vicente DO Work Phone: [facility] Work Phone: Start: 01-17-2025 Non-patient / Non-visit Lesli Arevalo MD -[facility] Work Phone: Start: 01-17-2025 End: 01-17-2025 ambulatory [...] Start: 12-17-2024 End: 12-17-2024 ambulatory AYANNA VICENTE Facility:[facility] Start: 12-16-2024 End: 12-16-2024 ambulatory [facility] Work Phone: Start: 12-16-2024 End: 12-16-2024 Patient encounter procedure [facility] Work Phone: Start: 11-17-2024 End: 11-17-2024 Telephone encounter Chad Freitas MD Work Phone: [facility] Comment on above: Records faxed Start: 11-10-2024 End: 11-10-2024 ambulatory [facility] Work Phone: Start: 11-10-2024 End: 11-10-2024 Patient encounter procedure [facility] Work Phone: Start: 11-01-2024 Non-patient / Non-visit [facility] Work Phone: Start: 11-01-2024 End: 11-01-2024 ambulatory Som Azul MD Facility: [facility] Start: 10-11-2024 End: 10-11-2024 ambulatory Som Azul MD Facility: [facility] Start: 09-03-2024 End: 09-03-2024 ambulatory Ayanna Vicente Facility:[facility] Start: 09-03-2024 Non-patient / Non-visit Tad Ag DO Work Phone: [facility] Work Phone: Start: 08-16-2024 End: 08-16-2024 ambulatory SUSAN RANDOLPH Facility:[facility] [place] Start: 08-16-2024 End: 08-16-2024 Patient encounter procedure SUSAN RANDOLPH [facility] [place] Start: 08-16-2024 End: 08-16-2024 ambulatory Som Azul MD Facility: [place] Start: 08-11-2024 End: 08-11-2024 ambulatory Ayanna Vicente DO Work Phone: [facility] Work Phone: Start: 08-11-2024 End: 08-11-2024 Patient encounter procedure Ayanna Vicente DO Work Phone: [facility] [place] Work Phone: Start: 08-11-2024 Non-patient / Non-visit Ayanna Vicente DO Work Phone: [facility] Work Phone: Start: 08-10-2024 End: 08-10-2024 ambulatory Ayanna Vicente DO Work Phone: [facility] Work Phone: Start: 08-10-2024 End: 08-10-2024 Departed Referred Ayanna Vicente DO Work Phone: [facility] [place] Work Phone: Start: 08-09-2024 End: 08-09-2024 Office outpatient visit 15 minutes Esvin Dubon CHARGE ACCOUNTS AUDIT CLERK Work Phone: [facility] Comment on above: Cognitive impairment (Primary Dx) Start: 08-09-2024 End: 08-09-2024 ambulatory ESVIN DUBON Not Available Start: 08-09-2024 End: 08-09-2024 Bamboo flowspieter Dubon CHARGE ACCOUNTS AUDIT CLERK Work Phone: [facility] Start: 08-09-2024 End: 08-09-2024 Bamboo aparnaheet Esvinkamari Dubon CHARGE ACCOUNTS AUDIT CLERK Work Phone: [facility] Start: 08-04-2024 End: 08-04-2024 ambulatory ESVINKamari DUBON Not Available Start: 07-26-2024 End: 07-26-2024 ambulatory [facility] Start: 07-12-2024 End: 07-12-2024 ambulatory Som Azul MD Facility:[facility] Start: 06-28-2024 End: 06-28-2024 Bamboo flowspieter Hammonds PhD Work Phone: [facility] Start: 06-28-2024 End: 06-28-2024 Bamboo flowsheet Enrique Hammonds PhD Work Phone: [facility] Start: 06-28-2024 End: 06-28-2024 Patient encounter procedure Enrique Hammonds PhD Work Phone: [facility] Comment on above: Memory loss (Primary Dx); Concentration deficit; Word finding difficulty; Other chronic pain; Family history of dementia Start: 06-28-2024 End: 06-28-2024 ambulatory ENRIQUE HAMMONDS Not Available Start: 06-23-2024 End: 06-23-2024 ambulatory MOE H ITZKOWITZ Not Available Start: 06-23-2024 End: 06-23-2024 Office outpatient visit 15 minutes Moe H Itzkowitz DO Work Phone: [facility] Comment on above: Diarrhea, unspecifie d type (Primary Dx); Constipation, unspecified constipation type Start: 06-22-2024 End: 06-22-2024 Clinisync Result Encounter Babita Guillaume DO Work Phone: [facility] Department Unsolicited Start: 06-22-2024 End: 06-22-2024 Clinisync Result Encounter Babita Guillaume DO Work Phone: [facility] External Department Unsolicited Start: 06-22-2024 Non-patient / Non-visit Ayanna Vicente DO Work Phone: [facility] Work Phone: Start: 06-17-2024 End: 06-17-2024 Bamboo flowsheet Babita Tranett DO Work Phone: [facility] [address] Start: 06-17-2024 End: 06-17-2024 Bamboo flowsheet Babita Guillaume DO Work Phone: [facility] [address] Start: 06-17-2024 End: 06-17-2024 Office outpatient new 45 minutes Babita Guillaume DO Work Phone: [facility] [address] Comment on above: Cognitive impairment (Primary Dx); Long-term use of high-risk medication Start: 06-17-2024 End: 06-17-2024 ambulatory BABITA GUILLAUME Not Available Start: 06-15-2024 Non-patient / Non-visit Ayanna Vicente DO Work Phone: [facility] Work Phone: Start: 06-15-2024 End: 06-15-2024 ambulatory Triervin Vasquez Marker Facility:[facility] Start: 06-15-2024 End: 06-15-2024 Departed Referred Ayanna Vicente DO Work Phone: [facility] [place] [facility] Start: 06-14-2024 End: 06-14-2024 ambulatory oSm Azul MD Facility: [facility] Start: 06-08-2024 End: 06-08-2024 Chart abstracting Zohaib German MD Work Phone: Rheumatology Start: 06-07-2024 End: 06-07-2024 ambulatory Som Azul MD Facility: [facility] Start: 05-26-2024 End: 05-26-2024 ambulatory AYANNA VICENTE Facility:[facility] Start: 05-26-2024 Non-patient / Non-visit Ayanna Vicente DO Work Phone[facility] Work Phone: Start: 05-26-2024 End: 05-26-2024 Office outpatient visit 15 minutes Chad Freitas MD Work Phone: Hematology/Oncology Comment on above: CLL (chronic lymphoc ytic leukemia) (HCC) (Primary Dx) Start: 05-26-2024 End: 05-26-2024 Patient encounter procedure Ayanna Vicente DO Work Phone: [facility] Work Phone: Start: 05-26-2024 End: 05-26-2024 ambulatory Ayanna Vicente DO Work Phone: [facility] Work Phone: Start: 05-18-2024 End: 05-18-2024 Patient encounter procedure DO Ayanna Vicente Work Phone: [facility] Work Phone: Start: 05-18-2024 End: 05-18-2024 ambulatory DO Ayanna Vicente Work Phone: [facility] Work Phone: Start: 05-17-2024 End: 05-17-2024 ambulatory ZOHAIB GERMAN Facility:[facility] Start: 05-17-2024 End: 05-17-2024 Patient encounter procedure Zohaib German MD Work Phone: Rheumatology Comment on above: 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 Work Phone: Start: 05-12-2024 End: 05-12-2024 Patient encounter procedure DO Ayanna Vicente Work Phone: [facility] Work Phone: Start: 05-11-2024 End: 05-11-2024 ambulatory DO Ayanna Vicente Work Phone: [facility] Work Phone: Start: 05-11-2024 End: 05-11-2024 Patient encounter procedure DO Ayanna Vicente Work Phone: [facility] Work Phone: Start: 05-06-2024 End: 05-06-2024 Patient encounter procedure DO Ayanna Vicente Work Phone: [facility] [place] Work Phone: Start: 05-06-2024 End: 05-06-2024 ambulatory DO Ayanna Vicente Work Phone: [facility] Work Phone: Start: 04-05-2024 End: 04-05-2024 ambulatory [facility] Work Phone: Start: 04-05-2024 End: 04-05-2024 Patient encounter procedure [facility] Work Phone: Start: 03-08-2024 End: 03-08-2024 ambulatory [facility] Work Phone: Start: 03-08-2024 End: 03-08-2024 Patient encounter procedure [facility] [place] Work Phone: Start: 02-24-2024 End: 02-24-2024 ambulatory SUSAN RANDOLPH Facility: [facility] Start: 02-24-2024 End: 02-24-2024 Patient encounter procedure SUSAN RANDOLPH [facility] Start: 02-05-2024 End: 02-05-2024 ambulatory [facility] Work Phone: Start: 02-05-2024 End: 02-05-2024 Patient encounter procedure [facility] [place] Work Phone: Start: 02-04-2024 Non-patient / Non-visit [facility] Work Phone: Start: 02-03-2024 End: 02-03-2024 ambulatory JAMES SMITH Not Available Start: 01-12-2024 End: 01-12-2024 ambulatory DO Ayanna Vicente Work Phone: [facility] Work Phone: Start: 01-12-2024 End: 01-12-2024 Patient encounter procedure DO Ayanna Vicente Work Phone: [facility] Work Phone: Start: 10-21-2023 End: 10-21-2023 ambulatory DO Ayanna Vicente Work Phone: [facility] Work Phone: Start: 10-21-2023 End: 10-21-2023 Patient encounter procedure DO Ayanna Vicente Work Phone: [facility] Work Phone: Start: 10-20-2023 Non-patient / Non-visit DO Aftab Vicente Work Phone: [facility] Work Phone: Start: 10-17-2023 End: 10-17-2023 ambulatory DO Ayanna Vicente Work Phone: [facility] Work Phone: Start: 10-17-2023 End: 10-17-2023 Patient encounter procedure DO Ayanna Vicente Work Phone: [facility] [place] Work Phone: Start: 10-16-2023 Non-patient / Non-visit DO Aftab id Sakina Work Phone: [facility] Work Phone: Start: 10-13-2023 Non-patient / Non-visit DO Aftab Vicente Work Phone: [facility] Work Phone: Start: 08-28-2023 Bamboo flowsheet James reis DPM Work Phone: [facility] Start: 08-28-2023 Bamboo flowsheet James reis DPM Work Phone: [facility] Start: 08-28-2023 End: 08-28-2023 Patient encounter procedure James Smith DPM Work Phone: [facility] Comment on above: Onychomycosis (Prima ry Dx); 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); Pain in both feet Start: 08-18-2023 End: 08-18-2023 ambulatory Homa Mckeon Other [facility] [employer] Other Start: 08-18-2023 Telephone encounter Homa BOUCHER [employer] Start: 08-12-2023 End: 08-12-2023 ambulatory Homa Mckeon Other [facility] [employer] Other Start: 08-12-2023 Office outpatient ne w 45 minutes Homa Mckeon [facility] Start: 08-12-2023 End: 08-12-2023 Patient encounter procedure DO Ayanna Vicente Work Phone: [facility]- Start: 07-16-2023 End: 07-16-2023 ambulatory Ayanna Vicente Other [facility] [employer] Other Start: 07-16-2023 Telephone encounter Ayanna Vicente [facility] [place] Start: 05-12-2023 End: 05-12-2023 ambulatory Junior Butterfield Other [employer] Other Start: 05-12-2023 Telephone encounter Junior Butterfield [facility] [place] Start: 05-07-2023 End: 05-07-2023 ambulatory Ayanna Vicente Other [employer] Other Start: 05-07-2023 Telephone encounter Ayanna Vicente [facility] [place] Start: 04-29-2023 End: 04-29-2023 ambulatory Ayanna Vicente Other [employer] Other Start: 04-29-2023 Telephone encounter Ayanna Vicente [facility] [place] Start: 04-25-2023 End: 04-25-2023 ambulatory Ayanna Vicente Other [employer] Other Start: 04-25-2023 Telephone encounter Ayanna Vicente [facility] [place] Start: 04-24-2023 End: 04-24-2023 ambulatory DO Ayanna Vicente Work Phone: [facility] Work Phone: Start: 04-24-2023 End: 04-24-2023 Patient encounter procedure DO Ayanna Vicente Work Phone: [facility]-XRay [facility] [place] Work Phone: Start: 04-22-2023 End: 04-22-2023 ambulatory Ayanna Vicente Other [employer] Other Start: 04-22-2023 Telephone encounter Ayanna Vicente [facility] [place] Start: 04-15-2023 End: 04-15-2023 ambulatory Ayanna Vicente Other [employer] Other Start: 04-15-2023 Office outpatient vi sit 25 minutes Ayanna Vicente [facility] [place] Start: 04-14-2023 End: 04-14-2023 ambulatory Ayanna Vicente Other [employer] Other Start: 04-14-2023 [facility] Start: 04-09-2023 End: 04-09-2023 ambulatory DO Ayanna Vicente Work Phone: [facility] Work Phone: Start: 04-09-2023 End: 04-09-2023 Patient encounter procedure DO Ayanna Vicente Work Phone: [facility] [place] Work Phone: Start: 02-25-2023 End: 02-25-2023 ambulatory Ayanna Vicente Other [employer] Other Start: 02-25-2023 Office outpatient vi sit 15 minutes Ayanna Vicente [facility] Start: 02-11-2023 End: 02-11-2023 Patient encounter procedure SUSAN RANDOLPH [facility] Start: 02-07-2023 End: 02-07-2023 ambulatory Santos Lares MD Work Phone: Hematology/Oncology Comment on above: CLL (chronic lymphoc ytic leukemia) (HCC) (Primary Dx) Start: 02-07-2023 End: 02-07-2023 Patient encounter procedure Santos Lares MD Work Phone: [facility] Start: 01-16-2023 End: 01-16-2023 ambulatory Ayanna Vicente Other [employer] Other Start: 01-16-2023 Telephone encounter Ayanna Vicente [facility] Start: 01-15-2023 End: 01-15-2023 ambulatory Ayanna Vicente Other [employer] Other Start: 01-15-2023 Telephone encounter Ayanna Vicente [facility] Start: 01-07-2023 End: 01-07-2023 ambulatory Ayanna Vicente Other [employer] Other Start: 01-07-2023 Telephone encounter Ayanna Vicente [facility] [place] Start: 01-06-2023 End: 01-06-2023 ambulatory Ayanna Vicente Other [employer] Other Start: 01-06-2023 Telephone encounter Ayanna Vicente [facility] [place] Start: 11-29-[address] AYANNA VICENTE Facilit y:H1 Start: 10-16-2022 End: 10-16-2022 ambulatory Ayanna Vicente Other [employer] Other Start: 10-16-2022 Telephone encounter Ayanna Vicente [facility] [place] Start: 10-02-2022 End: 10-02-2022 ambulatory Ayanna Vicente Other [employer] Other Start: 10-02-2022 Telephone encounter Ayanna Vicente [facility] [place] Start: 09-30-2022 End: 09-30-2022 ambulatory DO Ayanna Vicente Work Phone: [facility] Work Phone: Start: 09-30-2022 End: 09-30-2022 Patient encounter procedure DO Ayanna Vicente Work Phone: [facility]-Lab Main [place] Work Phone: Start: 09-24-2022 End: 09-24-2022 ambulatory DO Ayanna Vicente Work Phone: [facility] Work Phone: Start: 09-24-2022 End: 09-24-2022 Patient encounter procedure DO Ayanna Vicente Work Phone: [facility]-MRI [address] Work Phone: Start: 09-02-2022 End: 09-02-2022 ambulatory Ayanna Vicente Other [employer] Other Start: 09-02-2022 Telephone encounter Ayanna Vicente [facility] Start: 08-29-2022 End: 08-29-2022 ambulatory DO Ayanna Vicente Work Phone: [facility] Work Phone: Start: 08-29-2022 End: 08-29-2022 Patient encounter procedure DO Ayanna Vicente Work Phone: [facility] Work Phone: Start: 08-29-2022 End: 08-29-2022 Patient encounter procedure DO Ayanna Vicente Work Phone: [facility]-MRI [address] Work Phone: Start: 08-12-2022 End: 08-12-2022 ambulatory DO Ayanna Vicente Work Phone: [facility] Work Phone: Start: 08-12-2022 End: 08-12-2022 Patient encounter procedure DO Ayanna Vicente Work Phone: [facility] Work Phone: Start: 08-05-2022 End: 08-05-2022 ambulatory Ayanna Vicente Other [employer] Other Start: 08-05-2022 Telephone encounter Ayanna Vicente [facility] Start: 08-02-2022 ambulatory Ayanna Vicente Faci [id number] Start: 07-24-2022 End: 07-24-2022 ambulatory DO Ayanna Vicente Work Phone: [facility] Work Phone: Start: 07-24-2022 End: 07-24-2022 Patient encounter procedure DO Ayanna Vicente Work Phone: [facility]-Electrodiagnostics Work Phone: Start: 07-19-2022 Telephone encounter Santos justice MD Work Phone: [facility] Comment on above: Referral Information [...] encounter procedure Santos Lares MD Work Phone: [facility] Start: 05-31-2022 End: 05-31-2022 ambulatory Ayanna Vicente Other [employer] Other Start: 05-31-2022 Telephone encounter Ayanna Vicente [facility] Start: 05-14-2022 End: 05-14-2022 ambulatory Ayanna Vicente Other [employer] Other Start: 05-14-2022 Telephone encounter Ayanna Vicente [facility] Start: 04-24-2022 End: 04-24-2022 ambulatory Ayanna Vicente Other [employer] Other Start: 04-24-2022 Telephone encounter Ayanna Vicente [facility] Start: 04-23-2022 Telephone encounter Ayanna Vicente [facility] Start: 04-23-2022 End: 04-23-2022 ambulatory DO Ayanna Vicente Work Phone: [employer] Other Start: 04-23-2022 End: 04-23-2022 Patient encounter procedure DO Ayanna Vicente Work Phone: [facility]-Lab [facility] [place] Start: 04-18-2022 End: 04-18-2022 ambulatory Santos Lares MD Work Phone: Hematology/Oncology Comment on above: CLL (chronic lymphoc ytic leukemia) (HCC) (Primary Dx) Start: 04-18-2022 End: 04-18-2022 Patient encounter procedure Santos Lares MD Work Phone: [place] Start: 04-10-2022 End: 04-10-2022 ambulatory Ayanna Vicente Other [employer] Other Start: 04-10-2022 Telephone encounter Ayanna Vicente [facility] Start: 04-05-2022 Telephone encounter Niurka Erwin Hematology/Oncology Comment on above: Care Coordination (R esults) Start: 04-04-2022 End: 04-04-2022 ambulatory Santos Lares MD Work Phone: Hematology/Oncology Comment on above: Lymphocytosis (Prima ry Dx) Start: 04-04-2022 End: 04-04-2022 Patient encounter procedure Santos Lares MD Work Phone: [place] Start: 04-02-2022 End: 04-02-2022 ambulatory Ayanna Vicente Other [employer] Other Start: 04-02-2022 Office outpatient vi sit 40 minutes Ayanna Vicente [facility] Start: 04-01-2022 End: 04-01-2022 Patient encounter procedure DO Ayanna Vicente Work Phone: [facility]-Lab [facility] [place] Start: 03-26-2022 End: 03-26-2022 ambulatory Ayanna Vicente Other [employer] Other Start: 03-26-2022 Telephone encounter Ayanna Vicente [facility] Start: 03-19-2022 End: 03-19-2022 ambulatory Ayanna Vicente Other [employer] Other Start: 03-19-2022 Telephone encounter Ayanna Vicente [facility] Start: 03-13-2022 End: 03-13-2022 ambulatory Ayanna Vicente Other [employer] Other Start: 03-13-2022 Telephone encounter Ayanna Vicente [facility] [place] Start: 03-08-2022 End: 03-08-2022 ambulatory Ayanna Vicente Other [employer] Other Start: 03-08-2022 Telephone encounter Ayanna Earleabbi [facility] [place] Start: 03-07-2022 End: 03-07-2022 ambulatory Ayanna Vicente Other [employer] Other Start: 03-07-2022 Telephone encounter Ayanna Vicente [facility] [place] Start: 02-28-2022 End: 02-28-2022 ambulatory Ayanna Vicente Other [employer] Other Start: 02-28-2022 Telephone encounter Ayanna Vicente [facility] [place] Start: 02-21-2022 End: 02-21-2022 ambulatory Ayanna Vicente Other [employer] Other Start: 02-21-2022 Telephone encounter Ayanna Vicente [facility] [place] Start: 02-18-2022 End: 02-18-2022 ambulatory Ayanna Vicente Other [employer] Other Start: 02-18-2022 Telephone encounter Ayanna Sakina [facility] [place] Start: 02-15-2022 End: 02-15-2022 ambulatory Ayanna Vicente Other [employer] Other Start: 02-15-2022 Telephone encounter Ayanna Vicente [facility] [place] Start: 02-11-2022 End: 02-11-2022 ambulatory Ayanna Vicente Other [employer] Other Start: 02-11-2022 Telephone encounter Ayanna Vicente [facility] [place] Start: 02-06-2022 End: 02-06-2022 ambulatory Ayanna Vicente Other [employer] Other Start: 02-06-2022 Office outpatient vi sit 25 minutes Ayanna Sakina [facility] [place] Start: 01-31-2022 End: 01-31-2022 ambulatory Ayanna Vicente Other [employer] Other Start: 01-31-2022 Telephone encounter Ayanna Vicente [facility] [place] Start: 01-15-2022 End: 01-26-2022 Evaluation and management of inpatient DO Ayanna Vicente Work Phone: [facility] Start: 01-13-2022 End: 01-15-2022 Evaluation and management of inpatient DO Ayanna Vicente Work Phone: [facility] Start: 01-07-2022 End: 01-07-2022 ambulatory Ayanna Vicente Other [employer] Other Start: 01-07-2022 Telephone encounter Ayanna Vicente [facility] [place] Start: 12-27-2021 End: 12-27-2021 ambulatory Ayanna Vicente Other [employer] Other Start: 12-27-2021 Office outpatient vi sit 15 minutes Ayanna Ogabbi [facility] [place] Start: 12-19-2021 End: 12-19-2021 ambulatory Ayanna Vicente Other [employer] Other Start: 12-19-2021 Telephone encounter Ayanna Vicente [facility] [place] Start: 12-18-2021 End: 12-18-2021 ambulatory Ayanna Milner Other [employer] Other Start: 12-18-2021 Telephone encounter Ayanna Milner [facility] [place] Start: 12-17-2021 End: 12-17-2021 ambulatory Ayanna Milner Other [employer] Other Start: 12-17-2021 Office outpatient ne w 45 minutes Ayanna Milner [facility] Start: 11-12-2021 End: 11-12-2021 ambulatory Ayanna Vicente Other [employer] Other Start: 11-12-2021 Telephone encounter Ayanna Vicente [facility] [place] Start: 10-02-2021 End: 10-02-2021 ambulatory Ayanna Vicente Other [employer] Other Start: 10-02-2021 Telephone encounter Ayanna Vicente [facility] [place] Start: 10-01-2021 End: 10-01-2021 ambulatory Ayanna Vicente Other [employer] Other Start: 10-01-2021 Telephone encounter Ayanna Vicente [facility] [place] Start: 09-17-2021 End: 09-17-2021 ambulatory Ayanna Vicente Other [employer] Other Start: 09-17-2021 Telephone encounter Ayanna Vicente [facility] [place] Start: 09-13-2021 End: 09-13-2021 ambulatory Ayanna Vicente Other [employer] Other Start: 09-13-2021 Telephone encounter Ayanna Vicente [facility] [place] Start: 09-12-2021 End: 09-12-2021 ambulatory Ayanna Vicente Other [employer] Other Start: 09-12-2021 Telephone encounter Ayanna Vicente [facility] [place] Start: 07-18-2021 End: 07-18-2021 ambulatory Ayanna Vicente Other [employer] Other Start: 07-18-2021 Telephone encounter Ayanna Vicente [facility] [place] Start: 06-18-2021 End: 06-18-2021 ambulatory Ayanna Vicente Other [employer] Other Start: 06-18-2021 Telephone encounter Ayanna Vicente [facility] Start: 04-24-2021 [facility] Start: 04-04-2021 Office outpatient vi sit 25 minutes Ayanna Vicente [facility] Start: 02-08-2021 End: 02-08-2021 Orders Only [...] SUKUMAR RANDOLPH History of hernia repair HEATHER RADNOLPH SARS Antigen (LFIA) DO Ayanna Vicente Work Phone: Urine culture DO Ayanna Young [employer] Work Phone: Plan of Treatment Date Care Activity Detail Author Start: 01-14-2032 Urine microalbumin profile DTaP,Tdap,Td Vaccine (2 - Td or Tdap) [facility] Start: 05-26-2027 Diabetes Screening Diabetes Screenin [facility] Start: 08-08-2026 Diabetes Screening Diabetes Screenin g [facility] Start: 02-07-2026 DIABETES SCREEN DIABETES SCREEN [facility] Start: 12-19-2025 End: 12-19-2025 Patient encounter procedure 12/19/2025 11:00 AM EDT Office Visit Rheumatology [address] [place], [place] [id number] [place] [id number] [place] [address] Return in about 1 year (around 12/17/2025). Rheumatology Comment on above: Return in about 1 ye ar (around 12/17/2025). Start: 07-19-2025 DIABETES SCREEN DIABETES SCREEN [facility] Start: 03-14-2025 Influenza vaccination Influenza Vacc ine (#1) [facility] Start: 01-28-2025 End: 01-28-2025 Patient encounter procedure 01/28/2025 10:30 AM EDT Office Visit [facility] [address] [facility] [address] [place] [id number] Moe Betts DO [address] [facility] [address] [place] [address] [facility] Start: 11-25-2024 End: 11-25-2024 Patient encounter procedure 11/25/2024 11:20 AM EDT Office Visit Rheumatology [address] [place] [address] [place] [id number] [facility] [place] [address] 6 month follow up Rheumatology Comment on above: 6 month follow up Start: 11-24-2024 End: 11-24-2024 Follow-up encounter 11/24/2024 10:30 AM EDT Visit (SP) Office Hematology/Oncology [address] [place] [address] [place] [address] Chad Freitas MD [address] [place] [place] [address] 6 month follow up Hematology/Oncology Comment on above: 6 month follow up Start: 11-24-2024 End: 11-24-2024 Patient encounter procedure 11/24/2024 10:15 AM EDT Office Visit [facility] [address] [place], [place] [address] [address] 6 month follow up [facility] Comment on above: 6 month follow up Start: 11-15-2024 End: 11-15-2024 Patient encounter procedure 11/15/2024 11:00 AM EDT Office Visit Rheumatology [address] [place] [address] [place] [id number] [place] [address] 6 month follow up Rheumatology Comment on above: 6 month follow up Start: 11-10-2024 Patient referral [facility] Work Phone: Start: 09-16-2024 Covid-19 Vaccine ( season) Covid-19 Vaccine ( season) [facility] Start: 09-03-2024 Urine culture [facility] Start: 08-10-2024 Bacteria identified in Urine by Culture Urine Culture [facility] Start: 08-10-2024 End: 08-10-2024 Urine culture [facility] Start: 08-09-2024 End: 08-09-2024 Patient encounter procedure [facility] [address] Comment on above: Arrived Start: 08-04-2024 End: 08-04-2024 Patient encounter procedure 08/04/2024 11:30 AM EST Office Visit [facility] [address] [facility] [address] [place] [id number] [facility] Start: 07-14-2024 Advance Directive Discussion Advance Directive Discussion [facility] Start: 06-28-2024 End: 06-28-2024 Patient encounter [address] [facility] Comment on above: Cognitive impairment Start: 06-23-2024 End: 06-23-2024 Patient encounter procedure 06/23/2024 2:30 PM EST Consult [facility] [address] [facility] [address] [place] [id number] Moe Betts DO [address] [facility] [address] [place] [address] [facility] [address] [facility] Start: 06-17-2024 End: 06-17-2025 Cobalamin (Vitamin B12) [Mass/volume] in Serum or Plasma Vitamin B12 Lab Routine Cognitive impairment Long-term use of high-risk medication Expected: 06/17/2024 (Approximate), Expires: 06/17/2025 [facility] Work Phone: Comment on above: Expected: 06/17/2024 (Approximate), Expires: 06/17/2025 Start: 06-17-2024 End: 06-17-2024 Patient encounter procedure 06/17/2024 2:00 PM EST Office Visit [facility] [address] [place] [id number] Babita Guillaume, [address] [place], [place] [id number] Arrived [facility] Comment on above: Arrived Start: 06-17-2024 End: 06-17-2025 Thyrotropin [Units/volume] in Serum or Plasma TSH Lab Routine Cognitive impairment Long-term use of high-risk medication Expected: 06/17/2024 (Approximate), Expires: 06/17/2025 [facility] Comment on above: Expected: 06/17/2024 (Approximate), Expires: 06/17/2025 Start: 05-11-2024 Patient referral [facility] Work Phone: Start: 05-06-2024 Bacteria identified in Urine by Culture Urine Culture [facility] Start: 04-05-2024 Patient referral [facility] Work Phone: Start: 02-05-2024 Patient referral [facility] Work Phone: Start: 11-17-2023 End: 11-17-2023 Patient encounter procedure 11/17/2023 1:15 PM EDT Procedure Visit [facility] [address] [place] [address] [place], James S, DPM [address] [place] [address] [facility] Start: 10-17-2023 Bacteria identified in Urine by Culture [facility] Start: 08-18-2023 Shingrix Vaccine (2 of 2) Rodriguez grix Vaccine (2 of 2) [facility] Start: 08-10-2023 End: 10-10-2023 CBC W Auto Differential panel - Blood CBC + DIFF Lab Routine CLL (chronic lymphocytic leukemia) ([facility]) Expected: 08/10/2023 (Approximate), Expires: 10/10/2023 [facility] Work Phone: Comment on above: Expected: 08/10/2023 (Approximate), Expires: 10/10/2023 Start: 08-10-2023 End: 10-10-2023 Comprehensive metabolic 2000 panel - Serum or Plasma COMP METABOLIC PANEL Lab Routine CLL (chronic lymphocytic leukemia) ([facility]) Expected: 08/10/2023 (Approximate), Expires: 10/10/2023 [facility] Work Phone: Comment on above: Expected: 08/10/2023 (Approximate), Expires: 10/10/2023 Start: 07-14-2023 Advance Directive Discussion Advance Directive Discussion [facility] Start: 03-14-2023 Influenza vaccination C [facility] Start: 01-16-2023 End: 03-18-2023 CBC W Auto Differential panel - Blood CBC + DIFF Lab Routine CLL (chronic lymphocytic leukemia) ([facility]) Expected: 01/16/2023 (Approximate), Expires: 03/18/2023 [facility] Work Phone: Comment on above: Expected: 01/16/2023 (Approximate), Expires: 03/18/2023 Start: 01-16-2023 End: 03-18-2023 Comprehensive metabolic 2000 panel - Serum or Plasma COMP METABOLIC PANEL Lab Routine CLL (chronic lymphocytic leukemia) ([facility]) Expected: 01/16/2023 (Approximate), Expires: 03/18/2023 [facility] Work Phone: Comment on above: Expected: 01/16/2023 (Approximate), Expires: 03/18/2023 Start: 08-19-2022 COVID-19 VACCINE (5 - Pfizer series) COVID-19 VACCINE (5 - Pfizer series) [facility] Start: 07-26-2022 End: 08-18-2023 Us breast uni real time with image limited US BREAST LTD LT Radiology Routine Axillary adenopathy Other signs and symptoms in breast Expected: 07/26/2022, Expires: 08/18/2023 [facility] Work Phone: Comment on above: Expected: 07/26/2022 , Expires: 08/18/2023 Start: 07-19-2022 End: 09-18-2022 CBC W Auto Differential panel - Blood CBC + DIFF Lab Routine CLL (chronic lymphocytic leukemia) ([facility]) Expected: 07/19/2022 (Approximate), Expires: 09/18/2022 [facility] Work Phone: Comment on above: Expected: 07/19/2022 (Approximate), Expires: 09/18/2022 Start: 07-19-2022 End: 09-18-2022 Comprehensive metabolic 2000 panel - Serum or Plasma COMP METABOLIC PANEL Lab Routine CLL (chronic lymphocytic leukemia) (HCC) Expected: 07/19/2022 (Approximate), Expires: 09/18/2022 [facility] Work Phone: Comment on above: Expected: 07/19/2022 (Approximate), Expires: 09/18/2022 Start: 07-19-2022 End: 09-18-2022 Lactate dehydrogenase [Enzymatic activity/volume] in Serum or Plasma LD LACTATE DEHYDRO Lab Routine CLL (chronic lymphocytic leukemia) (HCC) Expected: 07/19/2022 (Approximate), Expires: 09/18/2022 [facility] Work Phone: Comment on above: Expected: 07/19/2022 (Approximate), Expires: 09/18/2022 Start: 07-14-2022 ADVANCE DIRECTIVE DISCUSSION ADVANCE DIRECTIVE DISCUSSION [facility] Start: 07-14-2022 DEPRESSION ASSESSMENT DEPRESSION ASS ESSMENT [facility] Start: 04-04-2022 End: 06-04-2022 [id number] [Mass/volume] in Serum or Plasma [facility] Work Phone: Comment on above: Expected: 04/04/2022 , Expires: 06/04/2022 Start: 04-04-2022 End: 06-04-2022 Chronic hepatitis differentiation between hepatitis B and C virus panel - Serum or Plasma [facility] Work Phone: Comment on above: Expected: 04/04/2022 , Expires: 06/04/2022 Start: 04-04-2022 End: 06-04-2022 FLOW CYTOMETRY PERIPHERAL BLOOD LEUK/LYMPH (FCLEUK) [facility] Work Phone: Comment on above: Expected: 04/04/2022 , Expires: 06/04/2022 Start: 03-14-2022 Influenza vaccination INFLUENZA (#1) [facility] Start: 01-24-2022 [facility] Start: 01-21-2022 Consultation [facility] Start: 01-15-2022 Hospital admission [facility] Start: 01-15-2022 Referral to clinical printing manager [facility] Start: 01-15-2022 [facility] Work Phone: Start: 01-13-2022 Hospital admission [facility] Work Phone: Start: 07-27-2021 COVID-19 VACCINE (4 - Booster for Pfizer series) COVID-19 VACCINE (4 - Booster for Pfizer series) [facility] Start: 07-14-2021 ADVANCE DIRECTIVE DISCUSSION ADVANCE DIRECTIVE DISCUSSION [facility] Start: 07-14-2021 DEPRESSION ASSESSMENT DEPRESSION ASS ESSMENT [facility] Start: 03-14-2021 Influenza vaccination INFLUENZA (#1) [facility] Start: 2007 ADVANCE DIRECTIVE DISCUSSION ADVANCE DIRECTIVE DISCUSSION [facility] Start: 2007 BONE DENSITY BONE DENSITY [facility] Start: 2007 PNEUMOCOCCAL: 65+ (1 - PCV) PNEUMOCOCCAL: 65+ (1 - PCV) [facility] Start: 2007 PNEUMOVAX AGE 65 AND OVER WITH 5YR LOOKBACK (#1) PNEUMOVAX AGE 65 AND OVER WITH 5YR LOOKBACK (#1) [facility] Start: 2007 Screening for osteoporosis Bone Density Screening [facility] Start: 1992 Screening for malign ant neoplasm of colon [facility] Start: 1992 SHINGRIX VACCINE (1 of 2) RODRIGUEZ GRIX VACCINE (1 of 2) [facility] Start: 1987 DIABETES SCREEN DIABETES SCREEN [facility] Start: 1961 SHINGRIX VACCINE (1 of 2) RODRIGUEZ GRIX VACCINE (1 of 2) [facility] Start: 1961 Urine microalbumin profile DTAP,TDAP,TD (1 - Tdap) [facility] Start: 1960 Anxiety Screening Anxiety Screening [facility] Start: 1960 Depression Screening Depression Scre ening [facility] Start: 1960 Hepatitis B surface antibody level LDL Cholesterol [facility] Start: 1960 HEPATITIS C SCREENING HEPATITIS C SC [facility] Start: 1954 Adult depression screening assessment DEPRESSION SCREENING [facility] Start: 1954 COVID-19 VACCINE (1) COVID-19 VACCIN E (1) [facility] Start: 1952 Diabetic foot examination Diabetic F oot Exam [facility] Start: 1952 Glaucoma screening Dilated Retinal E xam [facility] Start: 1952 Hepatitis B screening Urine Albumin:Creatinine Ratio [facility] Start: 1948 PNEUMOCOCCAL: 65+ (1 - PCV) PNEUMOCOCCAL: 65+ (1 - PCV) [facility] Start: 1947 Hemoglobin A1c measurement HbA1C [facility] Bacteria identified in Urine by Culture [facility] CBC W Auto Different ial panel - Blood CBC + DIFF Lab Routine Lymphocytosis 04/04/2022 11:00 AM EDT [facility] Work Phone: CBC W Auto Different ial panel - Blood COMPLETE BLOOD COUNT AND DIFFERENTIAL Lab Routine CLL (chronic lymphocytic leukemia) (HCC) 05/26/2024 2:20 PM EST [facility] Work Phone: Comprehensive metabo lic 1999 panel - Serum or Plasma [facility] Comprehensive metabo lic 1999 panel - Serum or Plasma [facility] Comprehensive metabo lic 1999 panel - Serum or Plasma [facility] FLOW CYTOMETRY PERIP HERAL BLOOD LEUK/LYMPH (FCLEUK) FLOW CYTOMETRY PERIPHERAL BLOOD LEUK/LYMPH (FCLEUK) Lab Routine Lymphocytosis 04/04/2022 11:02 AM [facility] Work Phone: FLOW SLIDE FLOW SLIDE Lab R outine Lymphocytosis 04/04/2022 11:02 AM [facility] Work Phone: Glucose measurement estimated from glycated hemoglobin [facility] Hepatitis B virus co re Ab [Presence] in Serum HEP B CORE AB TOTAL Lab Routine Lymphocytosis 04/04/2022 11:00 AM [facility] Work Phone: Hepatitis B virus noe rface Ab [Presence] in Serum HEP B SURF AB QUAL Lab Routine Lymphocytosis 04/04/2022 11:00 AM [facility] Work Phone: Hepatitis B virus noe rface Ab [Presence] in Serum by Immunoassay HEP B SURF AG SCRN Lab Routine Lymphocytosis 04/04/2022 11:00 [facility] Work Phone: Hepatitis C virus Ab [Presence] in Serum HEP C AB IA W/CONF SCRN Lab Routine Lymphocytosis 04/04/2022 11:00 [facility] Work Phone: End: 08-18-2023 SONYA SCREENING W NEYDA SONYA SCREENING W NEYDA Radiology Routine Encounter for screening mammogram for malignant neoplasm of breast 1 Occurrences starting 07/19/2022 until 08/18/2023 [facility] Work Phone: Comment on above: 1 Occurrences starti ng 07/19/2022 until 08/18/2023 MG Breast - bilatera l Screening [facility] MG Breast - bilatera l Screening [facility] Patient Education Wrist Fracture (DC) [facility] Work Phone: Patient referral [facility] Work Phone: End: 03-10-2022 Radiologic exam knee complete 4/more views XR KNEE GENERAL 4V AP BOTH/PA BOTH/LAT/MERC BILAT Radiology Routine Pain in both knees, unspecified chronicity 1 Occurrences starting 02/08/2021 until 03/10/2022 [facility] Comment on above: 1 Occurrences starti ng 02/08/2021 until 03/10/2022 End: 03-10-2022 Radiologic examination pelvis 1/2 views XR PELVIS 1V AP Radiology Routine Pain in both knees, unspecified chronicity 1 Occurrences starting 02/08/2021 until 03/10/2022 [facility] Comment on above: 1 Occurrences starti ng 02/08/2021 until 03/10/2022 Renal function 1999 panel - Serum or Plasma [facility] Renal function 1999 panel - Serum or Plasma [facility] Serum fructosamine measurement [facility] Work Phone: Urine culture [facility] Urine culture [facility] US Kidney - bilateral [facility] XR Hip - left 2 Views [facility] XR Knee - left 4 Views [facility] End: 08-18-2023 XR RIBS/CHEST 3V AP RIB/OBLS/CXR LEFT XR RIBS/CHEST 3V AP RIB/OBLS/CXR LEFT Radiology Routine Rib pain 1 Occurrences starting 07/19/2022 until 08/18/2023 [facility] Work Phone: Comment on above: 1 Occurrences starti ng 07/19/2022 until 08/18/2023 [facility] Immunizations Immunization Date Immunization Notes Care Provider Astrid cilirafiq 03-19-2024 COVID-19 (PFIZER) 12Y and older Ayanna Vicente DO Work Phone: [facility] 03-19-2024 influenza virus vaccine, unspecified formulation SUSAN RANDOLPH [facility] 03-19-2024 influenza, high dose seasonal, preservative-free Ayanna Vicente DO Work Phone: [facility] 06-23-2023 COVID-19 (PFIZER) 12Y and older [facility] 06-23-2023 Pneumococcal Conjuga te Vaccine, 20 valent [facility] 06-23-2023 RSV, preF3, adj, pf [facility] 06-23-2023 zoster vaccine recombinant [facility] 04-15-2023 influenza, high dose seasonal, preservative-free Ayanna Vicente Other [employer] [facility] [employer] Other 04-15-2023 Fluzone QIV High-Dos e 65YR+ [facility] 04-15-2023 influenza virus vaccine, unspecified formulation James Smith DPM Work Phone: [facility] 04-22-2022 pneumococcal polysaccharide vaccine, 23 valent Ayanna Vicente Other [facility] 04-18-2022 COVID-19 mRNA Bivale nt Booster (Pfizer) [facility] 01-13-2022 tetanus toxoid, redu paola diphtheria toxoid, and acellular pertussis vaccine, adsorbed Ayanna Vicente Other [facility] 06-01-2021 COVID-19 Vaccine Pfi zer - Documentation Purposes Only Ayanna Vicente Other [facility] 04-25-2021 influenza virus vaccine, unspecified formulation SUSAN RANDOLPH [facility] 04-04-2021 influenza, high dose seasonal, preservative-free Ayanna Vicente Other [employer] Other 04-04-2021 influenza virus vaccine, unspecified formulation DO Ayanna Vicente Work Phone: [facility] 04-04-2021 Influenza, High-dose Seasonal, Quadrivalent, Preservative Free James Smith DPM Work Phone: [facility] 09-01-2020 COVID-19 Vaccine Pfi zer - Documentation Purposes Only Ayanna Vicente Other [facility] 09-01-2020 SARS-CoV-2 (COVID-19 ) mRNA-1273 vaccine SUSAN RANDOLPH [facility] 08-11-2020 COVID-19 Vaccine Pfi zer - Documentation Purposes Only Ayanna Vicente Other [facility] 08-11-2020 SARS-CoV-2 (COVID-19 ) mRNA-1273 vaccine SUSAN RANDOLPH [facility] 03-14-2020 influenza virus vaccine, unspecified formulation SUSAN RANDOLPH [facility] 07-14-2019 pneumococcal conjuga te vaccine, 13 valent [facility] 04-03-2019 influenza virus vaccine, unspecified formulation SUSAN RANDOLPH [facility] 04-03-2019 Seasonal trivalent influenza vaccine, adjuvanted, preservative free [facility] 04-03-2019 pneumococcal polysaccharide vaccine, 23 valent Ayanna Vicente Other [facility] 04-03-2019 influenza, seasonal, injectable Ayanna Vicente Other [facility] 05-25-2018 influenza virus vaccine, unspecified formulation SUSAN RANDOLPH [facility] 05-25-2018 Influenza, injectabl e, Madin Anjelica Canine Kidney, preservative free, quadrivalent [facility] 05-25-2018 influenza, seasonal, injectable Ayanna Vicente Other [facility] 04-22-2018 Kenalog -40 mg Ayanna Vicente Other [employer] Other Payers Date Payer Category Payer Self-pay [id number] 2022 Unknown [id number] 2020 Private Health Insurance [facility] AARP SUPPLEMENT [id number] 2020-Present Indemnity [id number] 2020 Private Health Insurance [id number] 2007 Medicare MEDICARE MEDICAR E A AND B [id number] 2007-Present [place] Medicare [id number] .[id number] 2007 Medicare [id number] 1.13.159.2 .[id number] 1959 Medicare [id number] 2.16.840.1.225083.19 1959 Unknown [id number] 2.16.840.1.239626.19 1942 Unknown [id number] 2.16.840.1.206222.3.579.2 .356 1942 Unknown [id number] 2.16.840.1.200711.3.579.2 .593 1942 Unknown [id number] 2.16.840.1.371376.3.579.2 .1259 1942 Unknown [id number] 2.16.840.1.422927.3.579.2 .1259 1942 Unknown [id number] 2.16.840.1.468279.3.579.2 .1259 1942 Unknown [id number] 2.16.840.1.232380.3.579.2 .1259 1942 Unknown [id number] 2.16.840.1.176010.3.579.2 .1259 1942 Unknown [id number] 2.16.840.1.910468.3.579.2 .1259 1942 Unknown [id number] 2.16.840.1.865260.3.579.2 .1259 1942 Unknown [id number] 2.16.840.1.727151.3.579.2 .727 1942 Unknown [id number] 2.16.840.1.439801.3.579.2 .727 1942 Unknown [id number] 2.16.840.1.685625.3.579.2 .727 1942 Unknown [id number] 2.16.840.1.986180.3.579.2 .727 1942 Unknown [id number] 2.16.840.1.398475.3.579.2 .196 1942 Unknown [id number] 2.16.840.1.330761.3.579.2 .196 1942 Unknown [id number] 2.16.840.1.198075.3.579.2 .196 1942 Unknown [id number] 2.16.840.1.892089.3.579.2 .196 1942 Unknown [id number] 2.16.840.1.904858.3.579.2 .196 1942 Unknown [id number] 2.16.840.1.269879.3.579.2 .196 1942 Unknown [id number] 2.16.840.1.463238.3.579.2 .196 1942 Unknown [id number] 2.16.840.1.481366.3.579.2 .196 1942 Unknown [id number] 2.16.840.1.447196.3.579.2 .196 1942 Unknown [id number] 2.16.840.1.977373.3.579.2 .196 1942 Unknown [id number] 2.16.840.1.524105.3.579.2 .196 1942 Unknown [id number] 2.16.840.1.026492.3.579.2 .196 1942 Unknown [id number] 2.16.840.1.444110.3.579.2 .196 Unknown [id number] 2.16.840.1.262436.3.579.2 .531 Unknown [id number] 2.16.840.1.753954.3.579.2 .531 Unknown [id number] 2.16.840.1.023786.3.579.2 .531 Unknown [id number] 2.16.840.1.720235.3.579.2 .531 Unknown [id number] 2.16.840.1.395666.3.579.2 .531 Unknown [id number] 2.16.840.1.573357.3.579.2 .531 Unknown [id number] 2.16.840.1.098932.3.579.2 .531 Social History Date Type Detail Facility Start: 02-20-2004 End: 12-16-2024 Tobacco smoking status NHIS Former smoker [facility] Comment on above: quit smoking in 1985 Start: 07-14-1979 End: 07-14-1999 History of tobacco use Current smoker [facility] Work Phone: Start: 02-20-2004 Alcohol intake Not Asked Renita keen [facility] Start: 1940 Sex Assigned At Not on file C [facility] Start: 02-07-2023 End: 01-12-2025 Sex Assigned At [facility] Start: 1940 Sex Assigned At Female F [facility] Start: 07-14-1979 End: 07-14-1999 History of tobacco use Cigarette Smoker [facility] Start: 04-04-2022 End: 01-12-2025 Cigarettes smoked current (pack per day) - Reported 1.5 [facility] Start: 04-04-2022 End: 12-17-2024 Tobacco use and exposure Smokeless tobacco non-user [facility] Start: 04-04-2022 End: 12-17-2024 Alcohol intake Ex-drinker (finding) [facility] Start: 03-25-2022 End: 04-18-2022 Exposure to SARS-CoV-2 (event) Not sure [facility] Adult Depression Screening Assessment 0 [facility] Comment on above: quit smoking in 1984 Start: 12-07-2022 Tobacco smoking stat [facility] Never smoked tobacco [facility] Start: 08-21-2023 End: 01-12-2025 Alcohol intake Current drinker of alcohol (finding) [facility] Start: 12-07-2022 Alcohol Comment Alcohol: 1-2 d rinks occasionally. Caffeine: 3-4 cups/day coffee [facility] Start: 05-27-2024 End: 12-16-2024 Sex Female (finding) [facility] Sexual Orientation [facility] Medical Equipment Procedure Code Equipment Code [...] ALLOGRAFT FUSELO X LUMBAR FDA Start: 03-24-2017 [place] [employer] FDA Start: 03-24-2017 CANCELLOUS [...] ALLOGRAFT FUSELO X LUMBAR FDA Start: 03-24-2017 [place] [employer] FDA Start: 03-24-2017 CANCELLOUS [...] ALLOGRAFT FUSELO X LUMBAR FDA Start: 03-24-2017 [place] [employer] FDA Start: 03-24-2017 CANCELLOUS [...] ALLOGRAFT FUSELO X LUMBAR FDA Start: 03-24-2017 [place] [employer] FDA Start: 03-24-2017 CANCELLOUS [...] ALLOGRAFT FUSELO X LUMBAR FDA Start: 03-24-2017 [place] [employer] FDA Start: 03-24-2017 CANCELLOUS [...] ALLOGRAFT FUSELO X LUMBAR FDA Start: 03-24-2017 [place] [employer] FDA Start: 03-24-2017 CANCELLOUS [...] ALLOGRAFT FUSELO X LUMBAR FDA Start: 03-24-2017 [place] [employer] FDA Start: 03-24-2017 CANCELLOUS [...] ALLOGRAFT FUSELO X LUMBAR FDA Start: 03-24-2017 [place] [employer] FDA Start: 03-24-2017 CANCELLOUS [...] ALLOGRAFT FUSELO X LUMBAR FDA Start: 03-24-2017 [place] [employer] FDA Start: 03-24-2017 CANCELLOUS [...] ALLOGRAFT FUSELO X LUMBAR FDA Start: 03-24-2017 [place] [employer] FDA Start: 03-24-2017 CANCELLOUS [...] ALLOGRAFT FUSELO X LUMBAR FDA Start: 03-24-2017 [place] [employer] FDA Start: 03-24-2017 CANCELLOUS [...] ALLOGRAFT FUSELO X LUMBAR FDA Start: 03-24-2017 [place] [employer] FDA Start: 03-24-2017 CANCELLOUS [...] ALLOGRAFT FUSELO X LUMBAR FDA Start: 03-24-2017 [place] [employer] FDA Start: 03-24-2017 CANCELLOUS [...] ALLOGRAFT FUSELO X LUMBAR FDA Start: 03-24-2017 [place] [employer] FDA Start: 03-24-2017 CANCELLOUS [...] ALLOGRAFT FUSELO X LUMBAR FDA Start: 03-24-2017 [place] [employer] FDA Start: 03-24-2017 CANCELLOUS [...] ALLOGRAFT FUSELO X LUMBAR FDA Start: 03-24-2017 [place] [employer] FDA Start: 03-24-2017 CANCELLOUS [...] ALLOGRAFT FUSELO X LUMBAR FDA Start: 03-24-2017 [place] [employer] FDA Start: 03-24-2017 CANCELLOUS [...] ALLOGRAFT FUSELO X LUMBAR FDA Start: 03-24-2017 [place] [employer] FDA Start: 03-24-2017 CANCELLOUS [...] ALLOGRAFT FUSELO X LUMBAR FDA Start: 03-24-2017 [place] [employer] FDA Start: 03-24-2017 CANCELLOUS [...] ALLOGRAFT FUSELO X LUMBAR FDA Start: 03-24-2017 [place] [employer] FDA Start: 03-24-2017 CANCELLOUS [...] ALLOGRAFT FUSELO X LUMBAR FDA Start: 03-24-2017 [place] [employer] FDA Start: 03-24-2017 CANCELLOUS [...] ALLOGRAFT FUSELO X LUMBAR FDA Start: 03-24-2017 [place] [employer] FDA Start: 03-24-2017 CANCELLOUS [...] ALLOGRAFT FUSELO X LUMBAR FDA Start: 03-24-2017 [place] [employer] FDA Start: 03-24-2017 CANCELLOUS [...] ALLOGRAFT FUSELO X LUMBAR FDA Start: 03-24-2017 [place] [employer] FDA Start: 03-24-2017 CANCELLOUS [...] ALLOGRAFT FUSELO X LUMBAR FDA Start: 03-24-2017 [place] [employer] FDA Start: 03-24-2017 CANCELLOUS [...] ALLOGRAFT FUSELO X LUMBAR FDA Start: 03-24-2017 [place] [employer] FDA Start: 03-24-2017 CANCELLOUS [...] ALLOGRAFT FUSELO X LUMBAR FDA Start: 03-24-2017 [place] [employer] FDA Start: 03-24-2017 CANCELLOUS [...] ALLOGRAFT FUSELO X LUMBAR FDA Start: 03-24-2017 [place] [employer] FDA Start: 03-24-2017 CANCELLOUS [...] 08-16-2024 Functional Status N/A [facility] 02-24-2024 Functional Status N/A [facility] 02-11-2023 Functional Status N/A [facility] 01-26-2022 Functional status Patient is Pro gressing [facility]ard [facility] Work Phone: Mental Status Date Assessment Result Facility 01-26-2022 Cognitive function Cognitive Sta tus Patient at [facility] Work Phone: Clinical Notes 04-04-2021 to 02-08-2025 [...] your health care provider. General instructions Take kqmd-otc-loftniw and prescription medicines only as told by [...] provider. Document Revised: 03/19/2021 Document Reviewed: 03/19/2021 [employer] Patient Education 2023 [employer]y. Follow Up Care 08/16/2024 09:56:41 With:Follow up in Spring Address:Unknown When: Unknown [facility] 02-08-2025 Note Patient Education Obstetrics and [...] health care provider. General instructions ??? Take tlrv-omf-hfoiwrx and prescription medicines only as told by [...] drink, and whe (more content not included)... [facility] 01-19-2025 Telephone encounter Note Marci had an [...] to her medications. I'll see her PRN. [facility] 01-19-2025 Miscellaneous Notes Marci had an attempt [...] see her PRN. documented in this encounter [facility] 01-12-2025 History of Present illness Narrative Images [...] urethra 3x per week for UTI prevention, [facility], 178, cm, 08/16/24 9:10:00 EST, Height/Length [...] have been made. documented in this encounter [facility] 12-17-2024 History of Present illness Narrative Images from the original note were not included. Rheumatology Outpatient Clinic Date of Service: 12/17/2024 Patient: Kathy Washburn Medical Record: [id number] Primary Care Physician: Ayanna Vicente DO Last [...] status and she is working with a pheresis specialist. There have not been any new [...] Reviewed on 05/26/2024 Name Date COVID-19 vaccine ([employer]) 03/19/2024, 06/23/2023 COVID-19 vaccine, bivalent ([employer]) 04/18/2022 COVID-19 vaccine, monovalent ([employer]) 06/01/2021, 09/01/2020, 08/11/2020 Physical Exam GENERAL APPEARANCE: [...] which included preparing to see the patient, nbcg-vu-stsw patient care, completing clinical documentation, obtaining and/or [...] Time: 10:27 AM documented in this encounter [facility] 12-17-2024 Note HNO ID: [id number] Author: ZOHAIB GERMAN MD Service: ? Author Type: Physician Type: Progress Notes Filed: 12/17/2024 10:49 Note Text: Rheumatology Outpatient Clinic Date of Service: 12/17/2024 Patient: Kathy Washburn Medical Record: [id number] Primary Care Physician: Ayanna Vicente DO Last [...] status and she is working with a pheresis specialist. There have not been any new [...] History FAMILY HISTORY (more content not included)... [facility] 12-16-2024 Evaluation note Diagnosis Onset Date [...] 2025 2:43pm Diabetes chronic February 15 2:43pm [facility] Work Phone: 1(282) 588-426805-07-2025 Telephone encounter Note* Telephone Encounter - Susan Caballero - 11/17/2024 2:35 PM EDT Records faxed to Dr. Silva [phone]. I called Roxie to let her know they were faxed. [facility]05-07-2025 Miscellaneous Notes* Telephone Encounter - Susan Caballero - 11/17/2024 2:35 PM EDT Records faxed to Dr. Silva [phone]. I called Roxie to let her know they were faxed. * Telephone Encounter - Lori Renner - 11/17/2024 11:[address] Zena DREW Received a call from patient caregiver Roxie Bhagat. She stated that patient would like to cancel her upcoming appointment with Dr Paredes on 11/24 due to patient is going to be following with Dr Silva @ [facility] as this is closer to home for patient. Roxie requested to talk to medical records regarding having records sent to Dr Silva transferred call To Heather Todd. Lori Callahan [facility] Telephone encounter Note * Telephone Encounter - Lori Renner - 11/17/2024 11:[address] Zena DREW Received a call from patient caregiver Roxie Bhagat. She stated that patient would like to cancel her upcoming appointment with Dr Paredes on 11/24 due to patient is going to be following with Dr Silva @ [facility] as this is closer to home for patient. Roxie requested to talk to medical records regarding having records sent to Dr Silva transferred call To Heather Todd. Lori Callahan [facility]04-30-2025 Evaluation note* Author Ayanna Vicente [facility] Authored November 10, 2024 4:5 1pm The above note written by __ _Melanie Conde____ acting as human recorder, note dictated by Dr. Slater .I performed the above HPI, ROS, and Examination. I formulated and dictated the treatment plan and was present for entire encounter. Ayanna Vicente D.O. [facility] Work Phone: 1(788) 222-533704-30-2025 Hospital Discharge instructionsAmbulatory Orders* Referral to Hematology Time Frame: 11/10/24, Location: None Selected * Referral to Nephrology Time Frame: 11/10/24, Location: None Selected [facility] Work Phone: 1(694) 272-419402-03-2025 Hospital Discharge instructions Patient Education 08/16/2024 10:04:56 [...] provider. Document Revised: 01/28/2023 Document Reviewed: 01/28/2023 [employer] Patient Education 2023 Findery. Follow Up Care 08/11/2024 14:41:18 With:JAX BECKMAN, SUSAN Miller, URL Address: [facility] Robb Esvinangela [facility] [place] [address] When:Within 6 Month(s) [facility] 02-03-2025 NotePatient Education Caregiving Antibiotic Medicine, [...] ??? You have sig (more content not included)...[facility] 08-11-2024 Evaluation note* Author Ayanna Vicente [facility] Authored August 11, 2024 1 :46pm The above note written by __ _Melanie Conde____ acting as human recorder, note dictated by Dr. Slater .I performed the above HPI, ROS, and Examination. I formulated and dictated the treatment plan and was present for entire encounter. Ayanna Vicente D.O. [facility] Work Phone: 1(309) 735-858301-27-2025 History of Present illness Narrative* Esvin Dubon [...] replacement OTHER SURGICAL HISTORY 2000 fissure repair NE REPAIR SLIDING INGUINAL HERNIA [...] , wrist extensors , wrist flexor , registered nurses strength 5/5. LUE Strength deltoid , biceps , triceps , wrist extensors , wrist flexor , registered nurses strength 5/5. RLE Strength illopsoas, quadriceps, tibialis [...] knee reflex 0. Hdz's sign negative. Coordination: Oateys-ap-wocs testing is normal Rapid alternating movements are [...] on 06/22/2024: TSH 2.632 (wnl), B12 [address] [place] cognitive assessment at [facility] on 06/17/2024: 30 MRI of the brain at [facility] on 07/04/18: Mild age-related changes and atrophy [...] of mental health issues documented in this [facility]12-16-2024 History of Present illness Narrative* Enrique Hammonds, [...] No history of alcohol/substance abuse. Reformed smoker. [place] language [place]. Completed a master's degree. 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 and currently lives alone. Because of one child living out of state. 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 Please contact me with [employer] at [phone]. documented in this encounterThree [facility] [id number] History of Present illness Narrative* Moe Betts, [...] to have the scope. documented in this encounterThree Rivers [id number] History of Present illness Narrative* Babita Guillaume [...] JOINT REPLACEMENT Left 08/2011 knee replacement; Dr. Hqaue JOINT REPLACEMENT Right 2010 knee replacement OTHER [...] , wrist extensors , wrist flexor , registered nurses strength 5/5. LUE Strength deltoid , biceps , triceps , wrist extensors , wrist flexor , registered nurses strength 5/5. RLE Strength illopsoas, quadriceps, tibialis [...] knee reflex 0. Hdz's sign negative. Coordination: Bisoxo-lx-orkg testing and rapid alternating movements are normal Gait: Normal Review and summary of old records: [place] cognitive assessment at [facility] on 06/17/2024: Assessment/Plan Diagnoses and all [...] of mental health issues documented in this encounterThree Rivers [id number] NoteHNO ID: [id number] Author: YOUNG HERRERA LPN Service: ? Author Type: LICENSED NURSE Type: Progress Notes Filed: 06/08/2024 13:05 Note Text: Eye exam for Plaquenil toxicity received from [facility] . Exam date was 06/07/2024. Exam shows no signs of Plaquenil toxicity. Forms sent for scanning.[facility]11-26-2024 History of Present illness Narrative* Young Herrera LPN - 06/08/2024 1:05 PM EST Eye exam for Plaquenil toxicity received from [facility] . Exam date was 06/07/2024. Exam shows no signs of Plaquenil toxicity. Forms sent for scanning. [facility] Instructions* Patient Instructions* Chad Freitas MD - 05/26/2024 2:09 PM EST Labs today F/u in 6 months documented in [facility] History of Present illness Narrative* Chad Freitas MD - 05/26/2024 2:00 PM EST Images from the original note were not included. PATIENT NAME: Kathy Washburn CLINIC NO.: [id number] ATTENDING PHYSICIAN: Chad Freitas MD DATE OF [...] sweats - Did mammogram last week at [facility]. - Scheduled to see Occupational Rehabilitation Aide PAST MEDICAL HISTORY Diagnosis Date Depression Diabetes [...] Range Status 08/08/2023 2.0 % Final Abs [place] Date Value Ref Range Status 08/08/2023 0.39 [...] do not hesitate to contact me at [phone]. Chad Freitas MD Hematology/Medical Oncology [facility] spent a total of 20 minutes on the date of the service which included preparing to see the patient, gzge-lf-nmdi patient care, completing clinical documentation, obtaining and/or reviewing separately obtained history, counseling and educating the patient/family/caregiver, and ordering medications, tests, or procedures. CC: Ayanna Vicente DO documented in this encounterMary [facility]11-[facility]-2024 NoteHNO ID: [id number] Author: CHAD FREITAS MD Service: ? Author Type: Physician Type: Progress Notes Filed: 05/26/2024 14:41 Note Text: PATIENT NAME: Kathy Washburn CLINIC NO.: [id number] ATTENDING PHYSICIAN: Chad Freitas MD DATE OF [...] sweats - Did mammogram last week at [facility]. - Scheduled to see Occupational Rehabilitation Aide PAST MEDICAL HISTORY Diagnosis Date Depression Diabetes [...] Date Value Ref Range (more content not included)...[facility] 05-17-2024 NoteHNO ID: [id number] Author: ZOHAIB GERMAN MD Service: ? Author Type: Physician Type: Progress Notes Filed: 05/17/2024 13:34 Note Text: Rheumatology Outpatient Clinic Date of Service: 05/17/2024 Patient: Kathy Washburn Medical Record: [id number] Primary Care Physician: Ayanna Vicente DO Last Rheumatology visit: None at [facility] Referring Provider: No referring provider defined [...] unit/mL injection Inject subcutaneously (more content not included)...[facility]11-04-2024 History of Present illness Narrative* Zohaib German MD - 05/17/2024 12:56 PM EST Images from the original note were not included. Rheumatology Outpatient Clinic Date of Service: 05/17/2024 Patient: Kathy Washburn Medical Record: [id number] Primary Care Physician: Ayanna Vicente DO Last Rheumatology visit: None at [facility] Referring Provider: No referring provider defined [...] without complication, with long-term current use of insulin([facility]) Plan Orders this visit: Office Visit on [...] which included preparing to see the patient, bjee-wp-uiys patient care, completing clinical documentation, obtaining and/or [...] 2024 Time: 12:56 PM documented in [facility] Hospital Discharge instructionsAmbulatory Orders* Referral to Neurology Time Frame: 05/11/24, Location: None Selected [facility] Work Phone: 1(493) 162-565208-26-2024 Evaluation note* Author Ayanna Vicente [facility] Authored March 08, 2024 3: 24pm The above note written by __ _Melanie Conde____ acting as human recorder, note dictated by Dr. Slater .I performed the above HPI, ROS, and Examination. I formulated and dictated the treatment plan and was present for entire encounter. Ayanna Vicente D.O. Author Ayanna [facility] Authored February 05, 2024 9:11 am The above note written by __ _Melanie Conde____ acting as human recorder, note dictated by Dr. Slater .I performed the above HPI, ROS, and Examination. I formulated and dictated the treatment plan and was present for entire encounter. Ayanna Vicente D.O. [facility] Work Phone: 1(998) 927-303108-26-2024 Evaluation note* Author Ayanna [facility] Authored March 08, 2024 3: 24pm The above note written by __ _Melanie Conde____ acting as human recorder, note dictated by Dr. Slater .I performed the above HPI, ROS, and Examination. I formulated and dictated the treatment plan and was present for entire encounter. Ayanna Vicente D.O. Author [facility] Authored April 05, 2024 10:47am The above note written by __ _Melanie Conde____ acting as human recorder, note dictated by Dr. Slater .I performed the above HPI, ROS, and Examination. I formulated and dictated the treatment plan and was present for entire encounter. Ayanna Vicente D.O. [facility] Work Phone: 1(949) 681-302108-26-2024 Evaluation note* Author Ayanna [facility] Authored March 08, 2024 3: 24pm The above note written by __ _Melanie Conde____ acting as human recorder, note dictated by Dr. Slater .I performed the above HPI, ROS, and Examination. I formulated and dictated the treatment plan and was present for entire encounter. Ayanna Vicente D.O. Author [facility] Authored May 11, 2024 3 :30pm The above note written by __ _Melanie Conde____ acting as human recorder, note dictated by Dr. Slater .I performed the above HPI, ROS, and Examination. I formulated and dictated the treatment plan and was present for entire encounter. Ayanna Vicente D.O. Author [facility] Authored April 05, 2024 10:47am The above note written by __ _Melanie Conde____ acting as human recorder, note dictated by Dr. Slater .I performed the above HPI, ROS, and Examination. I formulated and dictated the treatment plan and was present for entire encounter. Ayanna Vicente D.O. [facility] Work Phone: 1(369) 521-116808-26-2024 Evaluation note* Author Ayanna [facility] Authored March 08, 2024 2: 24pm The above note written by __ _Melanie Conde____ acting as human recorder, note dictated by Dr. Slater .I performed the above HPI, ROS, and Examination. I formulated and dictated the treatment plan and was present for entire encounter. Ayanna Vicente D.O. Author [facility] Authored May 11, 2024 2 :30pm The above note written by __ _Melanie Conde____ acting as human recorder, note dictated by Dr. Slater .I performed the above HPI, ROS, and Examination. I formulated and dictated the treatment plan and was present for entire encounter. Ayanna Vicente D.O. Author [facility] Authored April 05, 2024 9:47am The above note written by __ _Melanie Conde____ acting as human recorder, note dictated by Dr. Slater .I performed the above HPI, ROS, and Examination. I formulated and dictated the treatment plan and was present for entire encounter. Ayanna Vicente D.O. [facility] Work Phone: 1(264) 492-978508-13-2024 Hospital Discharge instructions Patient Education 02/24/2024 10:42:26 [...] your health care provider. General instructions Take eqnw-oxx-ozvbbjn and prescription medicines only as told by [...] provider. Document Revised: 03/19/2021 Document Reviewed: 03/19/2021 [employer] Patient Education 2022 [employer]. Follow Up Care 02/11/2023 12:11:14 With:JAX BECKMAN, SUSAN Miller, URL Address: [address] [place] [address] [phone] When: Unknown Comments:6 mos (no labs) [facility] 08-13-2024 NotePatient Education Obstetrics and Gynecology [...] health care provider. General instructions ? Take oifc-cdo-snjnwyn and prescription medicines only as told by [...] help your health care (more content not included)...[facility]07-25-2024 Evaluation note* Author Ayanna Vicente [facility] Authored February 05, 2024 9:11 am The above note written by __ _Melanie Conde____ acting as human recorder, note dictated by Dr. Slater .I performed the above HPI, ROS, and Examination. I formulated and dictated the treatment plan and was present for entire encounter. Ayanna Vicente D.O. [facility] Work Phone: 1(730) 555-287904-09-2024 Evaluation note* Author Ayanna Vicente [facility] Authored October 21, 2023 4:11 pm The above note written by __ _Melanie Conde____ acting as human recorder, note dictated by Dr. Slater .I performed the above HPI, ROS, and Examination. I formulated and dictated the treatment plan and was present for entire encounter. Ayanna Vicente D.O. [facility] Work Phone: 1(280) 681-769702-15-2024 History of Present illness Narrative* James Smith [...] open areas were noted. documented in this encounterThree Rivers [id number] Evaluation note* Encounter Date Diagnosis Assessment Notes [...] sacroiliac steroidal injection. Refer the patient to [facility] for aqua therapy. Discuss with primary care physician, Dr. Vicente, about prescribing a steroid prednisone for temporary relief during the patient's cruise, in the event unable to see painmanagment before vacation. Order a lidocaine patch for the patient to use on the sacroiliac and hip area for pain relief.Recommend afab-xng-jqoyplc Thermacare or heat patches to use alongside the lidocaine patch. 3. 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 Monitor the degeneration and consider a preventative approach. Encourage the patient to take Tylenol arthritis for overall help. 4. Bone density: - Plan: Dexa scan within normal limits. Jul, Pain in left hip (ICD-10 - M25.552) Jul, Sacroiliac inflammation (ICD-10 - M46.1) Jul, Cervical pain (ICD-10 - M54.2) Jul, DDD (degenerative disc disease), lumbar (ICD-10 - M51.36) [facility] Other 01-03-2024 Evaluation note* Encounter Date Diagnosis [...] back (trigger point injection) done by Dr. Vicnete in 2014 but when she returned to [...] She will continue to monitor her memory. [facility] Other 10-03-2023 Evaluation note* Encounter Date Diagnosis [...] s he has about immunizations were answered. [facility] Other 10-02-2023 Evaluation note* Encounter Date Diagnosis Assessment Notes Treatment Notes Treatment Clinical Notes Apr, Insomnia (ICD-10 - G47.00) Apr, Neuropathy (ICD-10 - G62.9) [facility] Other 08-15-2023 Evaluation note* Encounter Date Diagnosis [...] Feb, Lumbar disc disease (ICD-10 - M51.9) [facility] Other 08-01-2023 Hospital Discharge instructions Patient Education [...] your health care provider. General instructions Take ixuv-hcs-xvqvxos and prescription medicines only as told by [...] provider. Document Revised: 03/19/2021 Document Reviewed: 03/19/2021 [employer] Patient Education 2022 [employer]. Follow Up Care 01/23/2023 15:26:59 With:JAX BECKMAN, SUSAN Miller, URL Address: [address] [facility] [place] [address] When: Unknown [facility] 07-28-2023 History of Present illness Narrative* Santos Lares MD - 02/07/2023 1:38 PM EDT Images from the original note were not included. PATIENT NAME: Kathy Washburn CLINIC NO.: [id number] ATTENDING PHYSICIAN: Santos Lares MD DATE OF [...] Range Status 07/19/2022 5.0 % Final Abs [place] Date Value Ref Range Status 07/19/2022 0.84 [...] do not hesitate to contact me at [phone]. Santos Lares MD Hematology/Medical Oncology [facility] [place] [facility] spent a total of 30 minutes on the date of the service which included preparing to see the patient, msvl-eg-bydm patient care, completing clinical documentation, obtaining and/or reviewing separately obtained history, counseling and educating the patient/family/caregiver, and ordering medications, tests, or procedures. CC: Ayanna Vicente DO documented in this encounterMary [facility]06-[facility] Evaluation note* Encounter Date Diagnosis Assessment [...] prescription of Cipro when she was in [place], she finds that her symptoms seem to happen when she is traveling. We discussed her seeing Dr. El for evaluation due to recurrent urine infections. She voices that she has not contacted that office but will do this. Dec, Other 1:43 PM - 1:59 PM [facility] Other 06-26-2023 Evaluation note* Encounter Date Diagnosis Assessment Notes Treatment Notes Treatment Clinical Notes Dec, Hyperlipidemia (ICD-10 - E78.5) [facility] Other 04-05-2023 Evaluation note* Encounter Date Diagnosis Assessment Notes Treatment Notes Treatment Clinical Notes Oct, Neuropathy (ICD-10 - G62.9) [facility] Other 03-22-2023 Evaluation note* Encounter Date Diagnosis Assessment Notes Treatment Notes Treatment Clinical Notes Sep, Insomnia (ICD-10 - G47.00) [facility] Other 03-22-2023 Evaluation note* Encounter Date Diagnosis [...] to see her blood sugars below 90. [place] sugar readings are in the 120's. She [...] discussion for her to have with her architectural draftsperson. Sep, Insomnia (ICD-10 - G47.00) We discussed [...] has not driven past any local towns ([place], [place]). She did have a cardiac work up [...] abuse treatments are being prescribed. Sep, Other shelter (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 therapy (ICD-10 - Z79.899) Sep, [...] had an MRI of her neck done. [facility] Other 01-09-2023 Miscellaneous Notes* Telephone Encounter - [...] RN * Telephone Encounter - Susan Todd [facility] - 07/19/2022 2:21 PM EST Records faxed to Dr. Ly. * Telephone Encounter - Susana Grant - 07/19/2022 1:21 PM EST Referral to Dr. Ly for Right ear pain. Heather/Royer: Can you please send information and follow up? Manuel Romero put information in your mailbox forreferral. Thank you! Susana Liaoashley documented in this encounterMary [facility]01-[facility]23 History of Present illness Narrative* Santos Lares MD - 07/19/2022 12:34 PM EST PATIENT NAME: Kathy Washburn CLINIC NO.: [id number] ATTENDING PHYSICIAN: Santos Lares MD DATE OF [...] 11.45 (H) 1.00 - 4.00 k/uL Final [place]% Date Value Ref Range Status 07/19/2022 5.0 % Final Abs [place] Date Value Ref Range Status 07/19/2022 0.84 [...] do not hesitate to contact me at [phone]. Santos Lares MD Hematology/Medical Oncology [facility] [place] [facility] spent a total of 30 minutes on the date of the service which included preparing to see the patient, ykxa-um-ikod patient care, completing clinical documentation, obtaining and/or reviewing separately obtained history, counseling and educating the patient/family/caregiver, and ordering medications, tests, or procedures. Medical Decision Making: Medical Decision Making Level: 1 - N/A CC: Ayanna Vicente DO documented in this encounterMary [facility] Hospital01-06-[facility]23 Nurse Note* Lluvia Samuel MA - 07/19/2022 12:20 PM EST Patient would like to ask you about her right ear, it is painful to touch, her head also hurts and also has Left side pain. Lluvia Samuel MA documented in this encounterMary [facility] Hospital11-18-2022 Evaluation note* Encounter Date Diagnosis Assessment Notes Treatment Notes Treatment Clinical Notes May, Cystitis (ICD-10 - N30.90) [facility] Other 10-11-2022 Evaluation note* Encounter Date Diagnosis Assessment Notes Treatment Notes Treatment Clinical Notes Apr, BMI 31.0-31.9,adult (ICD-10 - Z68.31) [facility] Other 10-06-2022 History of Present illness Narrative* Santos Lares MD - 04/18/2022 11:59 AM EDT PATIENT NAME: Kathy Washburn [facility] NO.: [id number] ATTENDING PHYSICIAN: Santos Lares MD DATE OF [...] 9.37 (H) 1.00 - 4.00 k/uL Final [place]% Date Value Ref Range Status 04/04/2022 5.0 % Final Abs [place] Date Value Ref Range Status 04/04/2022 0.67 [...] do not hesitate to contact me at [phone]. Santos Lares MD Hematology/Medical Oncology [facility] [place] I spent a total of 30 minutes on the date of the service which included preparing to see the patient, rbkw-ym-bzhi patient care, completing clinical documentation, obtaining and/or reviewing separately obtained history, counseling and educating the patient/family/caregiver, and ordering medications, tests, or procedures. Medical Decision Making: Medical Decision Making Level: 1 - N/A CC: Ayanna Vicente DO documented in this encounterMary [facility] Hospital09-28-[facility]22 Evaluation note* Encounter Date Diagnosis Assessment Notes Treatment Notes Treatment Clinical Notes Mar, Neuropathy (ICD-10 - G62.9) [facility] Other [id number] Miscellaneous Notes* Telephone Encounter - Santos Lares MD - 04/05/2022 5:06 PM EDT Spoke to the patient and answered her questions * Telephone Encounter - Niurka Hood RN - 04/05/2022 4:08 PM EDT Pt notified and verbalizes understanding. Pt would like to speak w/ you before her next appointment. Asks that you call her @ [phone] when you have time. Thanks! Niurka Hood [...] no one picked up documented in this encounterMary [facility] Hospital09-22-2022 History of Present illness Narrative* Santos Lares MD - 04/04/2022 11:32 AM EDT PATIENT NAME: Kathy Washburn CLINIC NO.: [id number] ATTENDING PHYSICIAN: Santos Lares MD DATE OF [...] ago. Has a son who lives in [place]. She does not smoke nor drink heavily. [...] Santos Lares M.D. Hematology/Medical Oncology [facility] [place] [phone] CC: Ayanna Vicente DO documented in this encounterMary [facility] Hospital09-20-2022 Evaluation note* Encounter Date Diagnosis Assessment [...] hurt. She has not followed with any hris specialist. She saw Dr. Akins in the [...] would like to refer her to a kindergarten assistant for evaluation, and she agrees. A referral [...] if needed. She can also see a electrostatic painter to discuss injections. She voices that she saw Dr. Guillaume in the past for migraines and would like to see Dr. Morales for evaluation. For now she will try to take the pain medication more often and see if this provides her with better relief and will continue to monitor. I will refer her to Dr. Morales for evaluation. 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 She voices understanding. Mar, Encounter for screening [...] find out where Dr. Milner went in [place] and then will refer her back to Dr. Milner to discuss a colonoscopy. Mar, Weight loss (ICD-10 - R63.4) She has lost 1.5 pounds since last seen. [facility] Other 09-06-2022 Evaluation note* Encounter Date Diagnosis Assessment Notes Treatment Notes Treatment Clinical Notes Mar, Diabetes type 2, uncontrolled (ICD-10 - E11.65) Mar, Hypertension (ICD-10 - I10) Mar, Neuropathy (ICD-10 - G62.9) [facility] Other 08-26-2022 Evaluation note* Encounter Date Diagnosis Assessment Notes Treatment Notes Treatment Clinical Notes Feb, Diabetes type 2, uncontrolled (ICD-10 - E11.65) [facility] Other 07-27-2022 Evaluation note* Encounter Date Diagnosis [...] Ambien, she is taking Melatonin. 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 [facility] Other 06-27-2022 Evaluation note* Encounter Date Diagnosis Assessment Notes Treatment Notes Treatment Clinical Notes Dec, Dysphagia (ICD-10 - R13.10) [facility] Other 06-27-2022 Evaluation note* Encounter Date Diagnosis Assessment Notes Treatment Notes Treatment Clinical Notes Dec, Other spondylosis with radiculopathy, lumbar region (ICD-10 - M47.26) [facility] Other 06-16-2022 Evaluation note* Encounter Date Diagnosis [...] M20.42) Dec, Foot deformity (ICD-10 - M21.969) [facility] Other 06-08-2022 Evaluation note* Encounter Date Diagnosis Assessment Notes Treatment Notes Treatment Clinical Notes Dec, Peripheral edema (ICD-10 - R60.9) [facility] Other 06-06-2022 Evaluation note* Encounter Date Diagnosis Assessment Notes Treatment Notes Treatment Clinical Notes Dec, History of colon polyps (ICD-10 - Z86.010) Dec, Irritable bowel syndrome with diarrhea (ICD-10 - K58.0) MAY USE IMODIUM NEEDED PT TO REPORT PROGRESS [facility] Other 05-02-2022 Evaluation note* Encounter Date Diagnosis Assessment Notes Treatment Notes Treatment Clinical Notes November, Cystitis (ICD-10 - N30.90) [facility] Other 03-22-2022 Evaluation note* Encounter Date Diagnosis [...] when she came home from traveling from [place] last week she had congestion and was coughing alot, she had alot of irritation in her throat and the back of her throat. She feels like someone put a bullet in her throat. She took a decongestant yesterday and feels better today. 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 I did recommend that she [...] that she was able to travel to [place] last week on her own for the first time by herself with her back issues and did well. She did have to use a wheelchair. She did need a wheelchair while in the airport. An [place]AR[place] report was reviewed, no discrepancies noted. Frequent appointments needed due to addiction potential. She has not gone to the [facility]. She voices that she never got a call back from that center and did not pursue this because she got involved with a urologist then developed bowel issues. She voices that she will follow up with the [facility] and Dr. Regan for this issue. [...] Sep, Other 2:54 PM - 3:20 PM [facility] Other 03-21-2022 Evaluation note* Encounter Date Diagnosis Assessment Notes Treatment Notes Treatment Clinical Notes Sep, Cough (ICD-10 - R05.9) [facility] Other 03-03-2022 Evaluation note* Encounter Date Diagnosis [...] I did recommend that she see a jewel hole gauger for evaluation to discuss these issues further, [...] She agrees but she is going to [place] on 09-19-21 and will not return until [...] with the Imodium until she returns from [place] and is seen by Dr. Milner. She [...] Sep, Other 9:29 AM - 9:49 AM [facility] Other 01-05-2022 Evaluation note* Encounter Date Diagnosis Assessment Notes Treatment Notes Treatment Clinical Notes Jul, Neuropathy (ICD-10 - G62.9) [facility] Other 12-06-2021 Evaluation note* Encounter Date Diagnosis [...] refer her to the spine center in [place] but she did not pursue this. We [...] - N30.90) She currently follows with a knuckle bender. She also saw Dr. Redding for evaluation and he did a procedure on her bladder to help with bladder leakage, she was supposed to see him again but he was sick so she is trying to get in to see either him or another doctor such as Dr. Peterson or Dr. Gleason, she does not want to see his PA or CHARGE ACCOUNTS AUDIT CLERK. She gets a pain in her vaginal area, describes it as a cut but now it feels as if it is going up higher. When she went to capacity planning manager [facility] yesterday she felt like someone cut her [...] Jun, Other 2:53 PM - 3:23 PM [facility] Other 10-12-2021 Evaluation note* Encounter Date Diagnosis Assessment Notes Treatment Notes Treatment Clinical Notes Apr, Neuropathy (ICD-10 - G62.9) [facility] Other 09-22-2021 Evaluation note* Encounter Date Diagnosis [...] Dr. Regan is referring her to the [facility] and she is seeing [...] the kidneys. She has never seen a pheresis specialist before. Her BUN is 40. Creatinine [...] 6.2. We discussed referring her to a kindergarten assistant for evaluation and to discuss this further but instead we will repeat lab in one month and if her level is this high or higher then we will do a referral through the [facility] in [place]. Mar, Knee pain (ICD-10 - M25.569) She [...] attending physical therapy and will see the [facility] soon. Mar, Weight loss (ICD-10 - R63.4) She has lost 5.5 pounds since last seen. She voices that she is trying to lose weight slowly. Encouraged her to continue with what she is doing. [facility] Other Evaluation + Plan note Future Appointments Appointment Date:02/24/2024 10:00:00 AM Scheduled Provider:SUSAN RANDOLPH PA-C Location:[facility] Appointment Type:URO Office Visit [facility] evaluation + Plan note Future Appointments Appointment Date:02/14/2025 01:20:00 PM Scheduled Provider:SUSAN RANDOLPH PA-C Location:[facility] Appointment Type:URO Office Visit [facility] evaluation + Plan note Future Appointments Appointment Date:10/27/2025 10:20:00 AM Scheduled Provider:JOSE Stewart APRN, [place] [facility] Location:[facility] Appointment Type:URO Office Visit [facility] evaluation note* Diagnosis Pain in both knees, unspecified chronicity- Primary [facility] noteNo InformationNort Interactive Investor Other Evaluation note* Diagnosis Onset Date Resolution Status Abrasion acute Acute hypotension acute Acute UTI acute TIP (acute kidney injury) ac hoh Contusion of leg, right acut e Fall [...] fracture acute Diabetes chronic Hypertension chronic Hypothyroidism [facility] Work Phone: Evaluation note* Diagnosis Lymphocytosis- Primary Lymphocytosis (symptomatic) documented in this encounter [facility]un[facility]ours foundation [facility]* Diagnosis CLL (chronic lymphocytic leukemia) (HCC)- Primary Chronic lymphoid leukemia, without mention of having achieved remission [facility] Diagnosis Onset Date Resolution Status Acute UTI acute Chronic back pain acute Depression acute Diabetic neuropathy acute Fall acute Hematoma of right lower leg acute Impaired mobility and activities of daily living acute Minor closed head injury acu te Right wrist fracture acute Diabetes chronic Hypertension chronic Hypothyroidism [facility] Work Phone: Evaluation note* Diagnosis CLL (chronic lymphocytic leukemia) (HCC)- Primary Chronic lymphoid leukemia, without mention of having achieved remission Right ear pain Otalgia, unspecified Rib pain Chest pain, unspecified Axillary adenopathy Enlargement of lymph nodes Other signs and symptoms in breast Encounter for screening mammogram for malignant neoplasm of breast Other screening mammogram documented in this encounter [facility]Evalunemours foundation noteNo assessment information [facility] Work Phone: Evaluation note* Diagnosis CLL (chronic lymphocytic leukemia) (HCC)- Primary Chronic lymphoid leukemia, without mention of having achieved remission [facility]* Diagnosis Onychomycosis- Primary Dermatophytosis of nail 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) Pain in both feet [facility] Diagnosis Onset Date Resolution Status Chronic lymphocytic leukemia acute Cystitis acute Diabetes type 2, uncontrolled acute Lumbar disc disease with radiculopathy acute Neuropathy acute Other abnormal blood chemistry acute 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 Work Phone: Evaluation note* Diagnosis Onset Date Resolution Status Right otitis media acute Cystitis acute Diabetes type 2, uncontrolled acute Other spondylosis with radiculopathy, lumbar region acute Rheumatism acute Insomnia chronic [facility] Work Phone: Evaluation note* Diagnosis Primary osteoarthritis involving multiple joints- Primary Fibromyalgia Mylagia and myositis, unspecified Type 2 diabetes mellitus without complication, with long-term current use of insulin ([facility]) [facility] Diagnosis CLL (chronic lymphocytic leukemia) ([facility])- Primary Chronic lymphoid leukemia, without mention of having achieved remission [facility] Diagnosis Cognitive impairment- Primary Unspecified persistent mental disorders due to conditions classified elsewhere Long-term use of high-risk medication documented in [facility] encounter [facility]* Diagnosis Diarrhea, unspecified type- Primary Constipation, unspecified constipation type documented in this encounter [facility]* Diagnosis Memory loss- Primary Concentration deficit Word finding difficulty Other chronic pain Family history of dementia Family history of other neurological diseases [facility] Diagnosis Cognitive impairment- Primary Unspecified persistent mental disorders due to conditions classified elsewhere documented in this encounter [facility]* Diagnosis Onset Date Resolution Status Admit Date Cystitis acute August 11, 2024 1:16pm Irritable bowel syndrome wit h diarrhea acute August 11 1:16pm Other spondylosis with radiculopathy, lumbar region acute Jason uary 2024 1:16pm [facility] Work Phone: Evaluation note* Diagnosis Onset [...] 10, 2024 3:41pm Hypothyroidism chronic October 3:41pm [facility] Work Phone: Evaluation note* Diagnosis Fibromyalgia- Primary Mylagia and myositis, unspecified Primary osteoarthritis involving multiple joints Type 2 diabetes mellitus without complication, with long-term current use of insulin (HCC) Long-term use of Plaquenil Encounter for long-term (current) use of other medications [facility] Diagnosis Diarrhea, unspecified type- Primary [...] yearl y Medical History 08-22-2011 Left femur [facility] Medical History - Chest x-ray [facility] Medical History stress test-normal ([facility]) Medical History [...] on polyps - Hospitalization History see above [employer] Other History general Narrative - Reported* Type Description Date Medical History pelvic exam done Medical History 2008 mammogram-normal Medical History 2009 colonoscopy Medical History 2003 CT scan done Medical History 2007 eye exam Medical History Zostavax done Medical History Flu/H1N1 vaccine Medical History mammogram Medical History -2010 DEXA scan Medical History Follows with Dr. Roxane rivera y Medical History 08-22-2011 Left femur [facility] Medical History 08-22-2011 Chest x-ray [facility] Medical History stress test-normal ([facility]) Medical History [...] head lacera tion after a fall 01/13/22 [employer] Other [employer] general Narrative - Reported* Type Description Date Medical History pelvic exam done Medical History 2009 mammogram-normal Medical History 2009 colonoscopy Medical History 2003 CT scan done Medical History 2007 eye exam Medical History Zostavax done Medical History Flu/H1N1 vaccine Medical History mammogram Medical History DEXA scan Medical History Follows with Dr. Betts yearcar y Medical History 08-22-2011 Left femur [facility] Medical History 08-22-2011 Chest x-ray [facility] Medical History stress test-normal ([facility]) Medical History [...] head lacera tion after a fall 01/13/22 [employer] [facility] [employer] Other [employer] general Narrative - Reported* Type Description Date Medical History pelvic exam done Medical History 2008 mammogram-normal Medical History 2008 colonoscopy Medical History 2003 CT scan done Medical History 2007 eye exam Medical History Zostavax done Medical History Flu/H1N1 vaccine Medical History -2010 mammogram Medical History -2010 DEXA scan Medical History Follows with Dr. Betts yearl y Medical History - Left femur [facility] Medical History 08-22-2011 Chest x-ray [facility] Medical History stress test-normal ([facility]) Medical History [...] head lacera tion after a fall 01/13/22 [employer] Other Hospital course Narrative No data available for this section [facility] Hospital Discharge instructionsAmbulatory Orders* Referral to Sleep Medicine Time Frame: 02/05/24, Location: None [facility] Work Phone: Hospital Discharge instructionsAmbulatory Orders* Referral to General Surgery Time Frame: 04/05/24, Location: None [facility] Work Phone: Progress note No data available for this section [facility] reason for referral (narrative)* Diagnostic Procedure Only (Routine) Status Reason Specialty Diagnoses / Procedures Referred By Contact Referred To Contact Pending Review Auto-Generated Referral XR IMAGING Diagnoses Pain in both knees, unspecified chronicity Procedures XR PELVIS 1V AP X-RAY PELVIS AP ONLY Dale Espinoza PA-C [address] [address] Xr Imaging * Diagnostic Procedure Only (Routine) Status Reason Specialty Diagnoses / Procedures Referred By Contact Referred To Contact Pending Review Auto-Generated Referral XR IMAGING Diagnoses Pain in both knees, unspecified chronicity Procedures XR KNEE GENERAL 4V AP BOTH/PA BOTH/LAT/MERC BILAT KNEE AP-WGT/LAT/MERCHA NT Dale Espinoza PA-C [address] [place] [address] Xr Imaging [facility] for referral (narrative)* Diagnostic Procedure Only (Routine) - Pending Review Specialty Diagnoses / Procedures Referred By Selin vasquez Referred To Contact BR IMAGING Diagnoses Encounter for screening mammogram for malignant neoplasm of breast Procedures SONYA SCREENING W NEYDA SCREENING DIGITAL BREAST TOMOSYNTHESIS BI SCREENING MAMMOGRAPHY BI 2-VIEW BREAST INC CAD Santos Lares MD [address] [place] [address] [facility] [address] [place] [address] Referral ID Status Reason Start Date Expiration Date Visits Requested Visits Authorized [id number] Pending Review Auto-Generat ed Referral 07/19/2022 08/18/2023 1 1 * Diagnostic Procedure Only (Routine) - Pending Review Specialty Diagnoses / Procedures Referred By Contac t Referred To Contact BR IMAGING Diagnoses Axillary adenopathy Other signs and symptoms in breast Procedures US BREAST LTD LT US BREAST UNI REAL TIME WITH IMAGE LIMITED Santos Lares MD [address] [place] [address] [facility] [address] [place] [address] Referral ID Status Reason Start Date Expiration Date Visits Requested Visits Authorized [id number] Pending Review Auto-Generat ed Referral 07/26/2022 08/18/2023 1 1 * Diagnostic Procedure Only (Routine) - Pending Review Specialty Diagnoses / Procedures Referred By Contac t Referred To Contact XR IMAGING Diagnoses Rib pain Procedures XR RIBS/CHEST 3V AP RIB/OBLS/CXR LEFT RADEX RIBS UNI W/POSTEROANT CH MINIMUM 3 VIEWS Santos Lares MD [address] [place] [address] Xr Imaging Referral ID Status Reason Start Date Expiration Date Visits Requested Visits Authorized [id number] Pending Review Auto-Generat ed Referral 07/19/2022 08/18/2023 1 1 * Consult, Test, Treat (Routine) - Authorized Specialty Diagnoses / Procedures Referred By Contac t Referred To Contact Ent - Otolaryngology Diagnoses Right ear pain Procedures CONSULT TO ENT OFFICE/OUTPATIENT [facility] 60-74 MINUTES Santos Lares MD [address] [place] [address] Referral ID Status Reason Start Date Expiration Date Visits Requested Visits Authorized [id number] Authorized PCP Requested Referral 07/19/2022 07/19/2023 1 1 [facility] for referral (narrative)* Reason appt pt needs cons ult to see Homa Mckeon /Dr. Corea for evaluation of lumbar pain Diagnosis 1 Other spondylosis wi th radiculopathy, lumbar region (M47.26) Referral Organization [facility] Referring Provider First Name Ayanna Referring Provider Last Name Sakina Referring Provider Specialty Family Prac art Referred Organization [facility] urosurgery Referred Provider MckeonHoma Referred Address [address],[address] Referred Provider Specialty Nurse Uli cotto Referral Priority Routine General Notes Nereyda Sanchez 04/15/2023 03:33:35 PM > referral sent p2p. pt understands she will be contacted to schedule this appt [facility] [employer] Other reason for referral (narrative)No reason for referral information [facility] Work Phone: Reason for visit Narrativereview labs, refill medication, discuss multiple issues, see treatment plan for further information [employer] [facility] [employer] Other reason for visit NarrativePT HERE AT REQUEST OF DR VICENTE FOR EVALUATION AND TREATMENT OF CHANGE IN STOOL HABITS AND HISTORY OF IRRITABLE BOWEL SYNDROME AND COLON POLYPS, REFERRAL NOTE RECEIVEDNoPinnacle Engines [employer] Other [employer] for visit Narrativereview labs/med refill, discuss multiple issues see treatment planNophelps health [employer] Other Requ[employer] for visit NarrativeNeurosurgery Referral Update [employer] Other reason for visit Narrative* Consultation (Routine) - Closed Specialty Diagnoses / Procedures Referred By Selin vasquez Referred To Contact Neurology Diagnoses Other amnesia Procedures NE OFFICE/OUTPATIENT [facility] 30 MINUTES Ayanna Vicente MD [address] [place] [address] Phone: tel: fax: Babita Guillaume DO [address] [place] [address] Phone: tel: fax: Referral ID Status Reason Start Date Expiration Date V isits Requested Visits Authorized [id number] Closed Consult and Treat 05/21/2024 11/17/2024 1 1 [facility] Narrative* Consultation (Routine) - Closed Specialty Diagnoses / Procedures Referred By Contfelipa t Referred To Contact Psychology Diagnoses Cognitive impairment Procedures NE OFFICE/OUTPATIENT [facility] Babita Guillaume DO [address] [place] [address] Phone: tel: fax: Enrique Hammonds, PhD [address] [address] Phone: tel: fax: Referral ID Status Reason Start Date Expiration Date V isits Requested Visits Authorized [id number] Closed Specialty Services Required 06/17/2024 12/14/2024 1 1 [facility] Healthcare Summary Purpose Family History No [...] in right hip (M 25.551) Referral Organization [facility] Ne urosurgery Referring Provider First Name Homa Referring Provider Last Name Mike Referring Provider Specialty Nurse Pract itioner Referred Organization [facility] Referred Provider Bonnie Slade Referred Address [address], [place],[address] Referred Provider Specialty Pain Medicin e Referral Priority Routine General Notes Susan Ugarte 04:33:20 PM >received today, holding referral for todays visit note to be locked Reason evaluate and t reat for hip pain Diagnosis 1 Pain in right hip (M 25.551) Referral Organization [facility] urosurger Referring Provider First Name Homa Referring Provider Last Name Mike Referring Provider Specialty Nurse Pract itioner Referred Organization [facility] Orth[facility] pedics Referred Provider Gume Macedo Referred Address [address] [facility] Referred Provider Specialty Orthopedic S urgery Referral Priority Routine General Notes Susan Ugarte 04:34:14 PM >received today, sending p2p at this time for scheduling Reason Aqua therapy - evalu ate and treat Diagnosis 1 Pain in right hip (M 25.551) Diagnosis 2 Lumbar pain (M54.50) Referral Organization [facility] Referring Provider First Name Homa Referring Provider Last Name Mike Referring Provider Specialty Nurse Pract itioner Referred Organization [facility] Referred Address [address], [place],[address] Referred Provider Specialty Physical The rapist Referral Priority Routine Reason appt pt would like to discuss hip, back, knee and sciatic pain Diagnosis 1 Other spondylosis wi th radiculopathy, lumbar region (M47.26) Referral Organization [facility] Referring Provider First Name Ayanna Referring Provider Last Name Sakina Referring Provider Specialty Family Prac art Referred Organization [facility] Referred Provider Homa Mckeon Referred Address [address],[address] Referred Provider Specialty Nurse Uli cotto Referral Priority Routine General Notes Nereyda Sanchez 07/16/2023 03:06:01 PM > referral sent p2p. pt understands she will be contacted to schedule this appt Reason appt pt is lu gilliam to see any of the providers consult for eval and treatment of rheumatism/prescribing of Plaquenil Diagnosis 1 Rheumatism, unspecif ied (M79.0) [facility] Referring Provider First Name Ayanna Referring Provider Last Name [facility] Referring Provider Specialty Family Prac art Referred Organization [facility] Referred Provider Esteban Saravia Referred Address [address] [place], [place],[address] Referred Provider Specialty Rheumatology Referral Priority Routine [...] Wrist fracture, righ t (S62.101A) Referral Organization [facility] [place] Referring Provider First Name Ayanna Referring Provider Last Name Sakina Referring Provider Specialty Family Prac art Referred Organization [facility] Referred Provider Penny Mike Referred Address [address] [facility] [place],[address] Referred Provider Specialty Hand Surgery Referral Priority [...] th radiculopathy, lumbar region (M47.26) Referral Organization [facility] Gabrielain Zapa [place] Referring Provider First Name Ayanna Referring Provider Last Name Earleabbi Referring Provider Specialty Family Prac art Referred Organization [facility] Referred Provider Anthony Morales Referred Address [address] [place],[address] Referred Provider Specialty Psychiatry, Neurology (Osteopaths only) [...] Diagnosis 1 Leukocytosis (D72.82 9) Referral Organization [facility] Family Gabrielaramila Astudillo Referring Provider First Name Ayanna Referring Provider Last Name Sakina Referring Provider Specialty Family Prac art [facility] Referred Provider Saqib Coleman Referred Address [address],[address] Referred Provider Specialty Hematology/O ncology Referral Priority [...] Knee pain, right (M2 5.561) Referral Organization [facility] Gabrielaramila Astudillo Referring Provider First Name Ayanna Referring Provider Last Name Sakina Referring Provider Specialty [facility] Prac art Referred Organization [facility] Referred Provider Zohaib Akins II Referred Address [address] [place], [place],[address] Referred Provider Specialty Orthopedic S urgery Referral Priority Routine General Notes Nereyda Sanchez 02/06/2022 02:16:49 PM > referral sent p2p. pt understands she will be contacted to schedule this appt. Reason appt pt needs cons ult to discuss change in stool habits, history of colon polyps, hx of IBS Diagnosis 1 Change in stool jacquie yesi (R19.4) Referral Organization [facility] Gabrielaramila Astudillo Referring Provider First Name Ayanna Referring Provider Last Name Sakina Referring Provider Specialty [facility] Prac art Referred Organization [facility] Gastroenterolo gy Referred Provider Ayanna Milner Referred Address [address] [facility] [address] ,[place], [place],[address] Referred Provider Specialty Gastroentero logy Referral Priority [...] radiculopathy Neuropathy Other abnormal blood chemistry 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 Peripheral edema HLD (hyperlipidemia) Hypertension Hypothyroidism Insomnia Chief Complaint Amb Documentation E11.65 E78.5 E03.9 R79.89 N30.90 Amb Documentation review labs/med refill sore throat, congestion, cough Reason for Visit Chronic lymphocytic leukemia Cystitis Diabetes type 2, uncontrolled Lumbar disc disease with radiculopathy Neuropathy Other abnormal blood chemistry Other shelter (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 therapy Peripheral edema HLD (hyperlipidemia) [...] eptember 2023 9:49am Other spondylosis with radiculopathy, [facility] April 05, 2024 9:49am Cystitis May 11, 2024 2 :37pm Diabetes type 2, uncontrolled May 112023 2:37pm Hip pain, left May 11, 2024 2 :37pm Knee pain, left May 11, 2024 2 :37pm Memory changes May 11, 2024 2 :37pm Other abnormal blood chemistry April 142023 2:37pm Other spondylosis with radiculopathy, [facility] May 11, 2024 2:37pm HLD (hyperlipidemia) [...] anuary 2024 1:16pm Other spondylosis with radiculopathy, [facility] August 11, 2024 1:16pm Chief Complaint [...] 2024 3:4 1pm Other spondylosis with radiculopathy, [facility] November 10, 2024 3:41pm Peripheral edema [...] 2024 3:4 1pm Other spondylosis with radiculopathy, [facility] November 10, 2024 3:41pm Peripheral edema [...] 2024 3:4 1pm Other spondylosis with radiculopathy, [facility] November 10, 2024 3:41pm Peripheral edema [...] disease December 16, 2024 2:13pm HLD (hyperlipidemia) Mairka 5th, 2025 2:13 pm Vitamin D deficiency [...] section and content) DATE CREATED AUTHOR 01/06/2021 [facility] [employer] [facility] DATE CREATED AUTHOR AUTHOR'S ORGANIZ ATION 08/16/2022 [facility] DATE CREATED AUTHOR AUTHOR'S ORGANIZ ATION 11/13/2022 [facility] DATE CREATED AUTHOR AUTHOR'S ORGANIZ ATION 12/18/2024 [facility] DATE CREATED AUTHOR AUTHOR'S ORGANIZ ATION 01/14/2025 [facility] DATE CREATED AUTHOR AUTHOR'S ORGANIZ ATION 02/01/2025 [facility] DATE CREATED AUTHOR AUTHOR'S ORGANIZ ATION 02/10/2025 [facility] DATE CREATED AUTHOR AUTHOR'S ORGANIZ ATION 03/12/2025 [facility] Source Comments (unrecognize d section and content) In the event this informatio n is protected by the Federal Confidentiality of Alcohol and Drug Abuse Patient Records regulations: The Federal rules restrict any use of the information to criminally investigate or prosecute any alcohol or drug abuse patient.[facility] HospitalIn the event this information is protected by the Federal Confidentiality of Alcohol and Drug Abuse Patient Records regulations: The Federal rules restrict any use of the information to criminally investigate or prosecute any alcohol or drug abuse patient.[facility] HospitalIn the event this information is protected by the Federal Confidentiality of Alcohol and Drug Abuse Patient Records regulations: The Federal rules restrict any use of the information to criminally investigate or prosecute any alcohol or drug abuse patient.[facility] HospitalIn the event this information is protected by the Federal Confidentiality of Alcohol and Drug Abuse Patient Records regulations: The Federal rules restrict any use of the information to criminally investigate or prosecute any alcohol or drug abuse patient.[facility] HospitalIn the event this information is protected by the Federal Confidentiality of Alcohol and Drug Abuse Patient Records regulations: The Federal rules restrict any use of the information to criminally investigate or prosecute any alcohol or drug abuse patient.[facility] HospitalIn the event this information is protected by the Federal Confidentiality of Alcohol and Drug Abuse Patient Records regulations: The Federal rules restrict any use of the information to criminally investigate or prosecute any alcohol or drug abuse patient.[facility] HospitalIn the event this information is protected by the Federal Confidentiality of Alcohol and Drug Abuse Patient Records regulations: The Federal rules restrict any use of the information to criminally investigate or prosecute any alcohol or drug abuse patient.[facility] HospitalIn the event this information is protected by the Federal Confidentiality of Alcohol and Drug Abuse Patient Records regulations: The Federal rules restrict any use of the information to criminally investigate or prosecute any alcohol or drug abuse patient.[facility] HospitalIn the event this information is protected by the Federal Confidentiality of Alcohol and Drug Abuse Patient Records regulations: The Federal rules restrict any use of the information to criminally investigate or prosecute any alcohol or drug abuse patient.[facility] HospitalIn the event this information is protected by the Federal Confidentiality of Alcohol and Drug Abuse Patient Records regulations: The Federal rules restrict any use of the information to criminally investigate or prosecute any alcohol or drug abuse patient.[facility] HospitalIn the event this information is protected by the Federal Confidentiality of Alcohol and Drug Abuse Patient Records regulations: The Federal rules restrict any use of the information to criminally investigate or prosecute any alcohol or drug abuse patient.[facility] HospitalIn the event this information is protected by the Federal Confidentiality of Alcohol and Drug Abuse Patient Records regulations: The Federal rules restrict any use of the information to criminally investigate or prosecute any alcohol or drug abuse patient.[facility] REASON FOR VISIT (unrecogniz ed section [...] Kevin MD Other Provider Active Kitty Powell ONE PIECE EXPANSION MAKER HAND Other Provider Active Madeline Juarez , DO [...] MD Other Provider Active Yanira Najera , CHARGE ACCOUNTS AUDIT CLERK-C Other Provider Active Slaas Winslow MD Other Provider Active Joss Stoner [...] MD Other Provider Active Susan Quarles , CHARGE ACCOUNTS AUDIT CLERK-C Other Provider Active Gume Macedo , DO [...] Ayanna Vicente DO Primary Care Provider Active Gauge Operator Relationship Specialty Start Date End Date Ayanna Vicente, DO [address] [place] [address] PCP - General [facility] Medicine 08/01/11 Ayanna Vicente, DO [address] [place] [address] Referring Family Medicine 10/04/20 Ayanna Vicente, DO [address] [place] [address] Referring Family Medicine 01/09/21 Gauge Operator Relationship Specialty Start Date End Date Ayanna Vicente, DO [address] [place] [address] PCP - General Family Medicine 08/01/11 Ayanna Vicente, DO [address] [place] [address] Referring Family Medicine 10/04/20 Ayanna Vicente, DO [address] [place] [address] Referring Family Medicine 01/09/21 Gauge Operator Relationship Specialty Start Date End Date Ayanna Vicente, DO [address] [place] [address] PCP - General Family Medicine 08/01/11 Ayanna Vicente, DO [address] [place] [address] Referring Family Medicine 10/04/20 Ayanna Vicente, DO [address] [place] [address] Referring Family Medicine 01/09/21 Gauge Operator Relationship Specialty Start Date End Date Ayanna Vicente, DO [address] [place] [address] PCP - General Family Medicine 08/01/11 Ayanna Vicente, DO [address] [place] [address] Referring Family Medicine 10/04/20 Ayanna Vicente, DO [address] [place] [address] Referring Family Medicine 01/09/21 Team Status: Inactive Member Role Status Dates yAanna Vicente DO Primary Care Provider, Family Provid er Active Santos Lares MD Attending Provider Active Team Status: Inactive Member Role Status Dates Ayanna Vicente DO Primary Care Provider, Family Provid er Active Esvin Dubon NP-C Attending Provider Active Gauge Operator Relationship Specialty Start Date End Date Ayanna Vicente DO [address] [place] [address] PCP - General Family Medicine 08/01/11 Ayanna Vicente DO [address] [place] [address] Referring Family Medicine 10/04/20 Ayanna Vicente DO [address] [place] [address] Referring Family Medicine 01/09/21 Gauge Operator Relationship Specialty Start Date End Date Ayanna Vicente MD [address] [place], [place] [id number] PCP - General Family Medicine 12/10/22 Gauge Operator Relationship Specialty Start Date End Date Ayanna Vicente MD [address] [place] [id number] PCP - General Family Medicine 12/10/22 Team [...] May 12, 2024 End: May 12, 2024 Gauge Operator Relationship Specialty Start Date End Date Ayanna Vicente DO [address] [place] [address] PCP - General Family Medicine 08/01/11 Ayanna Vicente DO [address] [place] [address] Referring Family Medicine 10/04/20 Ayanna Vicente DO [address] [place] [address] Referring Family Medicine 01/09/21 Gauge Operator Relationship Specialty Start Date End Date Ayanna Vicente DO [address] [place] [address] PCP - General Family Medicine 08/01/11 Ayanna Vicente, [address] [place] [address] Referring Family Medicine 10/04/20 Ayanna Vicente, [address] [place] [address] Referring Family Medicine 01/09/21 Gauge Operator Relationship Specialty Start Date End Date Ayanna Vicente DO [address] [place] [address] PCP - General Family Medicine 08/01/11 Ayanna Vicente DO [address] [place] [address] Referring Family Medicine 10/04/20 Ayanna Vicente DO [address] [place] [address] Referring Family Medicine 01/09/21 Gauge Operator Relationship Specialty Start Date End Date Ayanna Vicente MD [address] [place], [place] [address] PCP - General Family Medicine 12/10/22 Gauge Operator Relationship Specialty Start Date End Date Ayanna Vicente MD [address] [place], [place] [id number] PCP - General Family Medicine 12/10/22 Gauge Operator Relationship Specialty Start Date End Date Ayanna Vicente MD [address] [place], [place] [id number] PCP - General Family Medicine 12/10/22 Gauge Operator Relationship Specialty Start Date End Date Ayanna Vicente MD [address] [place] [address] PCP - General Family Medicine 12/10/22 Gauge Operator Relationship Specialty Start Date End Date Ayanna Vicente MD [address] [place] [address] PCP - General Family Medicine 12/10/22 Gauge Operator Relationship Specialty Start Date End Date Ayanna Vicente MD [address] [place] [address] PCP - General Family Medicine 12/10/22 Gauge Operator Relationship Specialty Start Date End Date Ayanna Vicente MD [address] [place], [place] [id number] PCP - General Family Medicine 12/10/22 Babita Guillaume DO [address] [place] [id number] Referring Physician Neurology 08/09/24 Gauge Operator Relationship Specialty Start Date End Date Ayanna Vicente MD [address] [place], [place] [id number] PCP - General Family Medicine 12/10/22 aBbita Guillaume DO [address] [place] [id number] Referring Physician Neurology 08/09/24 Team Status: Active [...] November 10, 2024 End: November 10, 2024 Gauge Operator Relationship Specialty Start Date End Date Ayanna Vicente DO [address] [place] [address] PCP - General Family Medicine 08/01/11 Ayanna Vicente DO [address] [place] [address] Referring Family Medicine 10/04/20 Ayanna Vicente DO [address] [place] [address] Referring Family Medicine 01/09/21 Gauge Operator Relationship Specialty Start Date End Date Ayanna Vicente DO [address] [place] [address] PCP - General Family Medicine 08/01/11 Ayanna Vicente DO [address] [place] [address] Referring Family Medicine 10/04/20 Ayanna Vicente DO [address] [place] [address] Referring Family Medicine 01/09/21 Gauge Operator Relationship Specialty Start Date End Date Ayanna Vicente MD [address] [place], [place] [id number] PCP - General Family Medicine 12/10/22 Babita Guillaume DO [address] [place], [place] [id number] Referring Physician Neurology 08/09/24 Gauge Operator Relationship Specialty Start Date End Date Ayanna Vicente MD [address] [place], [place] [id number] PCP - General Family Medicine 12/10/22 Babita Guillaume DO [address] [place] [address] Referring Physician Neurology 08/09/24 Goals (unrecognized section [...] BE BASED ON THE PRIMARY CLINICAL RECORDS. [facility] [employer] [facility]. provides no warranty or guarantee of the accuracy or completeness of information in this document.
[2025-03-21 07:00] VITALS: BP 104/72; PULSE 62; TEMP 36.7; O2SAT 93
[2025-03-21] MEDS: 0.9 % SODIUM CHLORIDE 500 ML IV ×2 (07:12→08:41)
[2025-03-21] MEDS: CLINDAMYCIN PHOSPHATE/D5W 600 MG/50 ML PREMIX 100 MG IV (07:28)
[2025-03-21] MEDS: LIDOCAINE HCL 2%-EPINEPHRINE 1:200,000 20 ML MDV INJ (08:12)
--- NOTE | 2025-03-21 09:03 | P.ON_ITS ---
Date of procedure: 03/21/25 Pre-op diagnosis: M96.1 Post-op diagnosis: same as pre-op Procedure: Procedure Performed by: Som Azul M.D. 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 Procedure: Risks, Benefits, Alternatives were reviewed and informed consent was obtained in the preop holding area. All questions were answered appropriately. The patient was brought to the operating room and placed in the prone position with padding under all bony prominences. A pre-procedure time out was performed specifying pt. name, nature site and side of surgery, and allergies. Anesthesia provided appropriate sedation as the skin over the thoracic and lumbar spine were prepped and draped in the usual sterile fashion. Under fluoroscopic guidance, the needle direct entry midwife interspace noted above was identified as the site for epidural needle entry. The skin and subcutaneous tissues were anesthetized approximately 1 level inferior to this point with a mixture of 1% lidocaine and 0.25% bupivacaine. A 14 gauge tuohy needle was inserted to the superior aspect of the lamina just inferior to the target interspace. Then, using loss of resistance technique as well as fluoroscopic guidance, the epidural space was entered. Two [employer] Leads were then advanced under intermittent fluoroscopic guidance until the distal tip of the electrode was observed to be in position at the location noted above. After appropriate electrode placement was achieved, stimulation was tested intraoperatively with multiple lead configurations until concordant paresthesias were obtained covering the areas of the patient's pain. Intraoperative analysis and programming of the neurostimulator pulse generator was completed by the physician and the sales representative printing supplies from [employer]. Next, the skin approximately 1cm superior to the needle entry point and 3cm distal to the needle entry point were anesthetized with 1% lidocaine and 0.25% bupivacaine. An incision was made along this area exposing the underlying fascia. Hemostasis was achieved. A small horizontal incision was made in the subcutaneous tissue overlying the posterior ilium after local anesthetic was infiltrated with 1% lidocaine and 0.25% bupivacaine mixture. A small pocket was made in the subcutaneous fat using blunt dissection. Hemostasis was obtained. A stimulator battery/implantable generator was then placed into the small pocket and attached to the electrodes. Testing was performed to ensure adequate connection between the electrodes and battery. After testing was completed, the two incisions were sutured with Vicryl 3-0 for deep tissue and Vicryl 4-0 for epidermis. The incisions were covered with sterile bandages. The patient was then taken to the recovery area in good condition. Anesthesia: MAC Surgeon: Som Azul Pathology: none sent Condition: stable Disposition: no change
[2025-03-21 09:09] VITALS: BP 101/59; PULSE 63; TEMP 36.3; O2SAT 95
[2025-03-21 09:13] VITALS: BP 96/60; PULSE 58; O2SAT 92
== END 2025-03-21 10:00 | disposition home or self-care (01) ==
LOC: SURGOUT 06:47
PROVIDERS: PCP Family Medicine; Visit Provider Anesthesiology
DX: M96.1 Postlaminectomy syndrome, not elsewhere classified (principal); Z45.42 Encounter for adjustment and management of neurostimulator; E11.8 Type 2 diabetes mellitus with unspecified complications; Z79.85 Long-term (current) use of injectable non-insulin antidiabetic drugs; Z79.84 Long term (current) use of oral hypoglycemic drugs; M54.50 Low back pain, unspecified
CPT/HCPCS: 36415; 63650; 63685; 82948; C1820; J1100; J2250; J2704; J3010

== ENCOUNTER 2025-03-24 13:27 | Outpatient (OUT) | payer MEDICARE, SELFPAY ==
--- OUTSIDE RECORDS SUMMARY | 2025-03-24 13:51 | XMS_ITS | CCD ---
Author Organization [facility] CliniSywv Care Team Providers Care Director Clinical Data Name Role Phone Ayanna Vicente Primary Care Provider Ayanna Vicente Unavailable Ayanna Vicente Unavailable Ayanna Vicente Unavailable Ayanna Milner Unavailable DO Ayanna Vicente Primary Care Provider MD James Redding Emergency Provider [phone] MD Bertram Garrison Admit Provider MD Bertram Garrison Attending Provider MD Galo Max Admit Provider MD Galo Max Attending Provider [phone] ALLYSSA Penn Other Provider Unavailable ALLYSSA Orourke Other Provider Unavailable ALLYSSA Camejo Other Provider Unavailable ALLYSSA Das Other Provider Unavailable ALLYSSA Acosta Other Provider Unavailable ALLYSSA Wall Other Provider Unavailable MD Yuliana Hale Other Provider MD Herman Kevin Other Provider [place], 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 Kitty Villalobos Other Provider DO Madeline [...] MD Tyson De Los Santos Other Provider [phone] Claudia, ALLYSSA Chavez Other Provider Unavailable MD Pietro Corral Other Provider MD Penny Mike Other Provider BERTA Quarles-C Susan Briggs Other Provider DO Gume Macedo Other Provider MD Zohaib Akins II Other Provider DO Ayanna Vicente Attending Provider Ayanna Vicente DO Primary Care Provider Ayanna Vicente DO Unavailable [phone] Ayanna Vicente DO Unavailable DO Ayanna Vicente Primary Care Provider Ayanna Vicente DO Primary Care Provider Ayanna Vicente DO Unavailable Ayanna Vicente DO Unavailable DO Ayanna Vicente Primary Care Provider DO Ayanna Vicente Attending Provider [phone] MD Santos Lares Attending Provider Ayanna Vicente [...] Care Provider DO Ayanna Vicente Attending Provider [phone] DO Ayanna Vicente Primary Care Provider [phone] DO Ayanna Vicente Attending Provider Ayanna Vicente DO Primary Care Provider [phone] Ayanna Vicente DO Unavailable [phone] Ayanna Vicente DO Unavailable DO Ayanna Vicente Primary Care Provider [phone] DO Ayanna Vicente Attending Provider Ayanna Vicente DO Primary Care Provider Sakina WISDOM, Ayanna Attending Provider Aundrea DO, Christopher Unavailable Ayanna Vicente DO Primary Care Provider Ayanna Vicente DO Attending Provider [phone] Marker DO, Tri Vasquez Attending Provider Ayanna Vicente DO Attending Provider AYANNA VICENTE Primary Care Unavailable SELF Referring Unavailable ZOHAIB GERMAN Attending Unavailable AYANNA VICENTE Primary Care Unavailable AYANNA VICENTE Primary Care Unavailable CHAD FREITAS Attending Unavailable ZOHAIB GERMAN Attending Unavailable AYANNA VICENTE Primary Care Unavailable Ayanna Vicente MD Primary Care Provider [phone] Aundrea WISDOM Christopher Unavailable [phone] ESVIN DUBON Attending Unavailable JAMES SMITH Attending Unavailable BABITA GUILLAUME Attending Unavailable AYANNA VICENTE Referring Unavailable MOE BETTS Attending Unavailable ROXANE, MOE Hogan Attending Unavailable ENRIQUE HAMMONDS Attending Unavailable BABITA GUILLAUME Referring Unavailable Aundrea WISDOM, Christopher Unavailable Ayanna Vicente DO Attending Provider [phone] Sakina WISDOM, Ayanna Primary Care Provider Lesli [...] Unavailable Ayanna Vicente DO Primary Care Provider [phone] Gieditis MD, Andrius Attending Provider Ayanna Vicente [...] (Antibiotic) Drug Allergy 02-20-20 04 Hives, Swelling [facility] (20 sources) cefpodoxime; Translations: [Vantin] Drug Allergy 12-24-19 16 Eye swelling (finding) [facility] (20 sources) cepahlosporins Propensity to adverse reactions Unknown [facility] Other (20 sources) Cephalosporins (Antibiotic); Translations: [Cephalosporins] Allergy to substance 02-20-20 04 Hives, Swelling, Swelling (morphologic abnormality), Eye swelling (finding), Unknown [facility] Comment on above: Eyes swelled also (20 sources) cefpodoxime; Translations: [CEFPODOXIME] Drug Allergy 02-17-20 19 Unknown, Other [facility] (1 source) Amoxicillin Drug Allergy 12-24-19 16 [facility] (15 sources) Medicinal cephalosporin and acting as antibacterial agent (FN) Drug allergy Unknown [facility] Other (2 sources) Bacitracin / Neomycin / Polymyxin B Drug Allergy Unknown [facility] Other (20 sources) Bacitracin; Translations: [bacitracin] Drug Allergy 08-12-19 Unknown Reaction [facility] (20 sources) Neomycin; Translations: [neomycin] Drug Allergy 08-12-19 Unknown Reaction [facility] (20 sources) polymyxin B; Translations: [polymyxin B] Allergy to substance 08-12-19 Unknown Reaction [facility] (1 source) cefpodoxime Drug Allergy 01-28-20 [facility] Repository Medications Current Medications Medication Drug [...] day(s), # 14 tab(s), Refills(s) 0, Pharmacy: [facility] #72, 178, cm, 02/08/25 9:03:00 EDT, [...] urethra 3x per week for UTI prevention, [facility], 178, cm, 02/08/25 9:03:00 EDT, Height/Length [...] urethra 3x per week for UTI prevention, [facility] #[facility], 178, cm, 08/16/24 9:10:00 EST, Height/Length Dosing, 103, kg, 08/16/24 9:10:00 EST, Weight Dosing 08/16/2024 Active Start: 08-16-2024 Estrace 0.1 mg /g Cream See Instructions, 42.5 gm, Refill(s) 6, apply a pea-sized amount vaginally and around the urethra 3x per week for UTI prevention, [facility] #[facility], 178, cm, 08/16/24 9:10:00 EST, Height/Length [...] at the same time Active Multiple Vitamin (Tab-A-Siavn) tablet (16 sources) Start: 01-24-2022 take 1 [...] incontinence, # 90 tab(s), Refills(s) 3, Pharmacy: 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 therapy] 10-21-2023 Episodic Other aftercare (2 sources) H/O: high risk medication; Translations: [Other jail (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 therapy] 06-17-2024 Episodic Other aftercare (1 source) Drug therapy finding; Translations: [Other 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 therapy] 12-17-2024 Episodic Other aftercare (1 source) skilled nursing (current) use of insulin; Translations: [Type 2 [...] Basophils/100 WBC (Bld) 0.0 % Low 0.2-2.0 [facility] Eosinophils/100 WBC Manual c nt (Bld)Ordered By: Som Giedraitis on 02-09-2025 Eosinophils/100 WBC (Bld) 0.0 % Low 0.9-7.0 [facility] Erythrocyte distribution wid th Auto (RBC) [Ratio]Ordered By: Som Azul on 02-09-2025 Erythrocyte distribution width (RBC) [Ratio] 13.7 % 11.0-15.0 [facility] Estimated glomerular filtrat ion rate (GFR) non- AmericanOrdered By: Som Azul on 02-09-2025 GFR/1.73 sq M.predicted among non-blacks MDRD (S/P/Bld) [Vol rate/Area] 35 mL/min/{1.73_m2} Low >=60 mL/min/1.73 m 2 [facility] Hematocrit Auto (Bld) [Volum e fraction]Ordered By: Som Azul on 02-09-2025 Hematocrit (Bld) [Volume fraction] 36.4 % 36.0-48.0 [facility] Hemoglobin [Mass/volume] in BloodOrdered By: Som Azul on 02-09-2025 Hemoglobin (Bld) [Mass/Vol] 11.6 g/dL Low 12.0-16.0 [facility] Laboratory - Chemistry and C hemistry - challengeOrdered By: Som Azul on 02-09-2025 Calcium [Mass/Vol] 9.0 mg/dL 8.5-10.1 [facility] Chloride [Moles/Vol] 107 mmol/L 98-107 [facility] CO2 [Moles/Vol] 30.8 mmol/L 21.0-32.0 [facility] Creatinine [Mass/Vol] 1.43 mg/dL High 0.55-1.02 [facility] GFR/1.73 sq M.predicted MDRD (S/P/Bld) [Vol rate/Area] 43 mL/min/{1.73_m2} Low >=60 mL/min/1.73 m 2 [facility] Glucose [Mass/Vol] 120 mg/dL High 74-106 [facility] Potassium [Moles/Vol] 5.0 mmol/L 3.5-5.1 [facility] Sodium [Moles/Vol] 143 mmol/L 136-145 [facility] Urea nitrogen [Mass/Vol] 36.0 mg/dL High 7.0-18.0 [facility] Urea nitrogen/Creatinine [Mass ratio] 25.2 mg/mg [facility] Laboratory - Hematology and Cell countsOrdered By: Andrius Molinaraitis on 02-09-2025 Lymphocytes/100 WBC (Bld) 51.0 % 20.5-60.0 [facility] Monocytes/100 WBC (Bld) 5.0 % 1.7-12.0 [facility] Leukocytes [#/volume] correc andreina for nucleated erythrocytes in Blood by Automated counOrdered By: Andrius Giadelaraitis on 02-09-2025 WBC corrected for nucl RBC Auto (Bld) [#/Vol] 19.3 10 3/uL High 4.0-11.0 [facility] MCH Auto (RBC) [Entitic mass ]Ordered By: Andrius Molinaraitis on 02-09-2025 MCH (RBC) [Entitic mass] 30.2 pg 26.7-34.0 [facility] MCHC Auto (RBC) [Mass/Vol]Or dered By: Andrius Giedraitis on 02-09-2025 MCHC (RBC) [Mass/Vol] 31.9 g/dL 29.9-35.2 [facility] MCV Auto (RBC) [Entitic vol] Ordered By: Andrius Giedraitis on 02-09-2025 MCV (RBC) [Entitic vol] 94.8 fL 81.0-99.0 [facility] No Panel InformationOrdered By: Andrius Giedraitis on 02-09-2025 Absolute Basophils (Manual) 0.00 10 3/uL 0.00-0.10 [facility] Eosinophils # (Manual) 0.00 10 3/uL 0.00-0.70 [facility] Lymphocytes # (Manual) 9.84 10 3/uL High 1.20-3.80 [facility] Monocytes # (Manual) 0.96 10 3/uL High 0.30-0.80 [facility] Segmented Neutrophils # (Manual) 8.49 10 3/uL High 1.4-6.5 [facility] Platelet mean volume Auto (B ld) [Entitic vol]Ordered By: Andrius Giedraitis on 02-09-2025 Platelet mean volume (Bld) [Entitic vol] 11.8 fL 9.5-13.5 [facility] Platelets Auto (Bld) [#/Vol] Ordered By: Andrius Giedraitis on 02-09-2025 Platelets (Bld) [#/Vol] 213 10 3/uL 150-450 [facility] RBC Auto (Bld) [#/Vol]Ordere d By: Andrius Giedraitis on 02-09-2025 RBC (Bld) [#/Vol] 3.84 10 6/uL Low 4.20-5.40 [facility] Segmented neutrophils/100 WB C Manual cnt (Bld)Ordered By: Andrius Giedraitis on 02-09-2025 Segmented neutrophils/100 WBC (Bld) 44.0 % 43.0-75.0 [facility] Serum or plasma anion gap de terminationOrdered By: Andrius Giedraitis on 02-09-2025 Anion gap [Moles/Vol] 10.2 mmol/L [facility] Smudge cell detectionOrdered By: Andrius Giedraitis on 02-09-2025 Smudge cells LM Ql (Bld) SEEN [facility] Ambulatory Visit Summaryon 0 02-08-2025 Ambulatory Visit Summary Ambulatory Visi t Summary AKTHY WASHBURN Car :1940 Visit Date:02/08/2025 Ambulatory Visit [...] APRN, Sujey Lopez Where: [facility] [place] [id number]- You Need to Schedule the Following Appointments Follow Up with Follow up in Spring When: Medications What How Much When Instructions New ciprofloxacin (Cipro 500 mg Tab) 1 Tablets By Mouth Every 12 hours Duration: 7 Days Pickup at [facility] Unchanged estradiol topical (Estrace 0.1 mg/ g Cream) See instructions apply a pea-sized amount vaginally and around the urethra 3x per week for UTI prevention Pickup at [facility] #[facility] Unchanged trospium (trospium 20 mg oral [...] Drug Ma (more content not included)... Normal [facility] Urology Office/Clinic Noteon 02-08-2025 Urology Office/Clinic Note [...] (N39.41: Urge incontinence) S/p Botox 100u 08/30/21. Malone sxs only improved for a few weeks or so. Wasn't very impressed w improvement. Does not wish to repeat Botox. Failed Myrbetriq and Oxybutynin previously. TODAY: BBSQ 18 poor control. Using Trospium IR PRN when traveling or going out of the house. Helps a lot. Minimizes side effects by using PRN. Did review [employer] brochure I provided last ov. Came w some questions. Discussed at length today. Pt would like to continue to think about it but is interested in BNE in future. Ordered: Complex E&M Add on G2211 E&M of Est. Patient Moderate 30-39 Min 08993 2. 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 Patient Moderate 30-39 Min 32942 Orders: ciprofloxacin, 500 mg = 1 tab(s), Oral, q12hr, X 7 day(s), # 14 tab(s), Refills(s) 0, Pharmacy: [facility], 178, cm, 02/08/25 9:03:00 EDT, Height/Length Dosing, 105.1, kg, 02/08/25 9:03:00 EDT, Weight Dosing estradiol topical, See Instructions, 42.5 gm, Refill(s) 6, apply a pea-sized amount vaginally and around the urethra 3x per week for UTI prevention, [facility], 178, cm, 02/08/25 9:03:00 EDT, Height/Length [...] oral tablet (more content not included)... Normal [facility] Comment on above: Result Comment: Elec tronically Signed By: SUSAN RANDOLPH PA-C\.br\Date and Time Signed: 02/08/25 10:51 EDT [place] barium enemaon 01-19-2025 FL barium enema [place] [address] Fluoroscopy Report Signed Patient: Kathy Washburn MR#: [id number] : 1940 Acct:[id number] Age/Sex: 84 / F ADM Date: 01/19/25 Loc: XD Room: Type: [facility] Attending Dr: Moe Betts DO Copies [...] Arndt M.D. 01/19/2025 2:20 PM Dictation Location: [place] [address] Transcribed By: [facility] 01/19/25 1420 Dictated By: Stanford Arndt DO 01/19/25 1417 Signed By: 01/19/25 1420 Normal [facility] Fluoroscopy reportOrdered By : Stanford Arndt on 01-19-2025 RF Unspecified body region Views [facility] [place] [address] [place] [address] Fluoroscopy Report Signed Patient: Kathy Washburn MR#: [id number] : 1940 Acct:[id number] Age/Sex: 84 / F ADM Date: 5 Loc: XD Room: Type: [facility] Attending Dr: Moe Betts DO Copies [...] Arndt M.D. 01/19/2025 2:20 PM Dictation Location: [place] [address] Transcribed By: [facility] 01/19/25 1420 Dictated By: Stanford Arndt DO 01/19/25 1417 Signed By: 01/19/25 1420 [facility] Erythrocyte distribution wid th Auto (RBC) [Ratio]Ordered By: Lesli Arevalo on 01-17-2025 Erythrocyte distribution width (RBC) [Ratio] 14.3 % 11.0-15.0 [facility] Estimated glomerular filtrat ion rate (GFR) non- AmericanOrdered By: Lesli Arevalo on 01-17-2025 GFR/1.73 sq M.predicted among non-blacks MDRD (S/P/Bld) [Vol rate/Area] 43 mL/min/{1.73_m2} Low >=60 mL/min/1.73 m 2 [facility] Hematocrit Auto (Bld) [Volum e fraction]Ordered By: Lesli Arevalo on 01-17-2025 Hematocrit (Bld) [Volume fraction] 39.4 % 36.0-48.0 [facility] Hemoglobin [Mass/volume] in BloodOrdered By: Lesli Arevalo on 01-17-2025 Hemoglobin (Bld) [Mass/Vol] 12.7 g/dL 12.0-16.0 [facility] Laboratory - Chemistry and C hemistry - challengeOrdered By: Lesli Arevalo on 01-17-2025 Albumin [Mass/Vol] 3.5 g/dL 3.4-5.0 [facility] Calcium [Mass/Vol] 9.0 mg/dL 8.5-10.1 [facility] Chloride [Moles/Vol] 109 mmol/L High 98-107 [facility] CO2 [Moles/Vol] 29.7 mmol/L 21.0-32.0 [facility] Creatinine [Mass/Vol] 1.20 mg/dL High 0.55-1.02 [facility] GFR/1.73 sq M.predicted MDRD (S/P/Bld) [Vol rate/Area] 52 mL/min/{1.73_m2} Low >=60 mL/min/1.73 m 2 [facility] Glucose [Mass/Vol] 99 mg/dL 74-106 [facility] Magnesium [Mass/Vol] 1.5 mg/dL Low 1.8-2.4 [facility] Potassium [Moles/Vol] 4.9 mmol/L 3.5-5.1 [facility] Sodium [Moles/Vol] 146 mmol/L High 136-145 [facility] Urate [Mass/Vol] 6.2 mg/dL High 2.6-6.0 [facility] Urea nitrogen [Mass/Vol] 35.0 mg/dL High 7.0-18.0 [facility] Urea nitrogen/Creatinine [Mass ratio] 29.2 mg/mg [facility] Bilirubin Ql (U) Negative NEGATIVE [facility] Glucose (U) [Mass/Vol] Negative NEGATIVE [facility] Ketones Ql (U) Negative NEGATIVE [facility] pH (U) 6.0 [pH] 5.0-9.0 [facility] Specific gravity (U) [Rel density] 1.025 1.005-1.025 [facility] Urobilinogen Qn (U) 0.2 {Jose'U}/dL 0.2-1.0 [facility] Laboratory - Specimen inform ationOrdered By: Lesli Arevalo on 01-17-2025 Appearance (U) CLEAR CLEAR [facility] Color (U) DK. YELLOW YELLOW [facility] Laboratory - UrinalysisOrder ed By: Lesli Arevalo on 01-17-2025 Leukocyte esterase Test strip Ql (U) Negative NEGATIVE [facility] Mucus Ql (Urine sed) TRACE Abnormal NONE SEEN [facility] Nitrite Ql (U) Negative NEGATIVE [facility] Protein (U) [Mass/Vol] 41.4 mg/dL High <=11.9 [facility] Protein Ql (U) TRACE mg/dL NEG/TRACE [facility] Leukocytes [#/volume] correc andreina for nucleated erythrocytes in Blood by Automated counOrdered By: Lesli Arevalo on 01-17-2025 WBC corrected for nucl RBC Auto (Bld) [#/Vol] 18.8 10 3/uL High 4.0-11.0 [facility] MCH Auto (RBC) [Entitic mass ]Ordered By: Lesli Arevalo on 01-17-2025 MCH (RBC) [Entitic mass] 30.2 pg 26.7-34.0 [facility] MCHC Auto (RBC) [Mass/Vol]Or dered By: Lesli Arevalo on 01-17-2025 MCHC (RBC) [Mass/Vol] 32.2 g/dL 29.9-35.2 [facility] MCV Auto (RBC) [Entitic vol] Ordered By: Lesli Arevalo on 01-17-2025 MCV (RBC) [Entitic vol] 93.6 fL 81.0-99.0 [facility] No Panel InformationOrdered By: Lesli Arevalo on 01-17-2025 25-Hydroxy Vitamin D Total 61.8 ng/mL [facility] Comment on above: <20 ng/mL Vit D defi cient20-<30 ng/mL Vit D jbiidiuxkofc15-300 ng/mL Vit D sufficient>100 ng/mL Potential Toxicity Parathyroid Hormone (Intact) 42 pg/mL 15-65 [facility] Comment on above: [facility]formed at: [facility] [address] [id number] Director: Narinder Elam PhD, Phone: [phone] Phosphorus Level 4.1 mg/dL 2.6-4.7 [facility] Urine Bacteria SMALL #/HPF Abnormal NONE SEEN [facility] Urine Occult Blood Negative NEGATIVE [facility] Urine Other Casts NONE SEEN #/LPF NONE SEEN [facility] Urine Other Crystals None Seen #/HPF None Seen [facility] Urine Random Creatinine 119.94 mg/dL 20.0 0-300.0 0 [facility] Urine RBC 0-2 #/HPF 0-2 [facility] Urine Squamous Epithelial Cells RARE #/LPF NONE/RARE [facility] Urine WBC 0-2 #/HPF Abnormal NONE SEEN [facility] Platelet mean volume Auto (B ld) [Entitic vol]Ordered By: Lesli Arevalo on 01-17-2025 Platelet mean volume (Bld) [Entitic vol] 11.4 fL 9.5-13.5 [facility] Platelets Auto (Bld) [#/Vol] Ordered By: Lesli Mickey on 01-17-2025 Platelets (Bld) [#/Vol] 217 10 3/uL 150-450 [facility] RBC Auto (Bld) [#/Vol]Ordere d By: Lesli Mickey on 01-17-2025 RBC (Bld) [#/Vol] 4.21 10 6/uL 4.20-5.40 [facility] Serum or plasma anion gap de terminationOrdered By: Lesli Mickey on 01-17-2025 Anion gap [Moles/Vol] 12.2 mmol/L [facility] Urine protein/creatinine rat ioOrdered By: Lesli Mickey on 01-17-2025 Protein/Creatinine (U) [Ratio] 0.35 [facility] CNOVon 12-17-2024 CNOV Office Visit (INEZ ) KATHY WASHBURN ([id number]) 1940 F Date Time Provider Department 12/17/24 10:20 AM ZOHAIB GERMAN During your visit today, we recorded the following information about you: Temperature Blood pressure Weight Height 65 degrees 112/71 103.6 kg 1.727 m Zohaib German MD 12/17/2024 10:49 AM Signed [facility] Date of Service: 12/17/2024 Patient: Kathy Washburn Medical Record: [id number] Primary Care Physician: Ayanna Vicente DO Last [...] status and 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 There have not been any new health [...] Mixed hyp (more content not included)... Normal [facility] Prakash 11-17-2024 [facility] Telephone ([facility]) MARKUSKATHY Car ([id number]) 1940 F Date Time Provider Department 11/17/24 [...] to be following with Dr Silva @ [facility] as this is closer to home for patient. Roxie requested to talk to medical records regarding having records sent to Dr Silva transferred call To Heather Todd. Susan Rodriguez 11/17/2024 2:36 PM Signed Records faxed to Dr. Silva [phone]. I called Roxie to let her know [...] Status:Closed by LORI RENNER on 11/17/24 Normal [facility] Acanthocytes [Presence] in B lood by Light microscopyon 11-01-2024 Acanthocytes LM Ql (Bld) Acanthocytes [Presence] in Blood by Light microscopy [facility] Acanthocytes LM Ql (Bld) 1+ [facility] Basophils/100 WBC Manual cnt (Bld)on 11-01-2024 Basophils/100 WBC (Bld) Basophils/100 leukocytes in Blood by Manual count 0.2-2.0 [facility] Basophils/100 WBC (Bld) 2.0 % 0.2-2.0 [facility] Cholesterol in LDL Calc [Mas s/Vol]on 11-01-2024 Cholesterol in LDL [Mass/Vol] Cholesterol in LDL [Mass/volume] in Serum or Plasma by calculation [facility] Comment on above: <100 mg/dl [id number] 0-129 mg/dl NEAR OR ABOVE [id number] mg/dl BORDERLINE [id number] mg/dl HIGH>190 mg/dl VERY HIGH Cholesterol in LDL [Mass/Vol] 29.2 mg/dL [facility] Comment on above: <100 mg/dl [id number] 0-129 mg/dl NEAR OR ABOVE [id number] mg/dl BORDERLINE [id number] mg/dl HIGH>190 mg/dl VERY HIGH Cholesterol in VLDL Calc [Ma ss/Vol]on 11-01-2024 Cholesterol in VLDL [Mass/Vol] Cholesterol in VLDL [Mass/volume] in Serum or Plasma by calculation [facility] Cholesterol in VLDL [Mass/Vol] 22.8 mg/dL [facility] Eosinophils/100 WBC Manual c nt (Bld)on 11-01-2024 Eosinophils/100 WBC (Bld) Eosinophils/100 leukocytes in Blood by Manual count 0.9-7.0 [facility] Eosinophils/100 WBC (Bld) 1.0 % 0.9-7.0 [facility] Erythrocyte distribution wid th Auto (RBC) [Ratio]on 11-01-2024 Erythrocyte distribution width (RBC) [Ratio] 14.6 % 11.0-15.0 [facility] Estimated glomerular filtrat ion rate (GFR) non- Americanon 11-01-2024 GFR/1.73 sq M.predicted among non-blacks MDRD (S/P/Bld) [Vol rate/Area] Estimated glomerular filtration rate (GFR) non- Low >=60 mL/min/1.73 m 2 [facility] GFR/1.73 sq M.predicted among non-blacks MDRD (S/P/Bld) [Vol rate/Area] 36 mL/min/{1.73_m2} Low >=60 mL/min/1.73 m 2 [facility] Globulin Calc (S) [Mass/Vol] on 11-01-2024 Globulin (S) [Mass/Vol] Serum globulin measurement by calculation (mass/volume) [facility] Globulin (S) [Mass/Vol] 3.4 g/dL F [facility] Glucose mean value [Mass/vol ume] in Blood Estimated from glycated hemoglobinon 11-01-2024 Average glucose Estimated from glycated hemoglobin (Bld) [Mass/Vol] Glucose mean value [Mass/volume] in Blood Estimated from glycated hemoglobin [facility] Average glucose Estimated from glycated hemoglobin (Bld) [Mass/Vol] 154 mg/dL [facility] Hematocrit Auto (Bld) [Volum e fraction]on 11-01-2024 Hematocrit (Bld) [Volume fraction] 41.5 % 36.0-48.0 [facility] Hemoglobin A1c percentageon 11-01-2024 HbA1c (Bld) [Mass fraction] Hemoglobin A1c percentage High 4.5-6.2 [facility] Comment on above: ADA RECOMMENDED LIMI T 4.0 - 6.0ADA THERAPEUTIC TARGET < 7.0ACTION SUGGESTED> 7.0 HbA1c (Bld) [Mass fraction] 7.0 % High 4.5-6.2 [facility] Comment on above: ADA RECOMMENDED LIMI T 4.0 - 6.0ADA THERAPEUTIC TARGET < 7.0ACTION SUGGESTED> 7.0 Hemoglobin [Mass/volume] in Bloodon 11-01-2024 Hemoglobin (Bld) [Mass/Vol] 13.2 g/dL 12.0-16.0 [facility] Laboratory - Chemistry and C hemistry - challengeon 11-01-2024 Albumin [Mass/Vol] 3.3 g/dL Low 3.4-5.0 [facility] ALP [Catalytic activity/Vol] 89 U/L 46-116 [facility] ALT [Catalytic activity/Vol] 43 U/L 14-59 [facility] AST [Catalytic activity/Vol] 26 U/L 15-37 [facility] Bilirubin [Mass/Vol] 0.3 mg/dL 0.2-1.0 [facility] Calcium [Mass/Vol] 9.0 mg/dL 8.5-10.1 [facility] Chloride [Moles/Vol] 109 mmol/L High 98-107 [facility] Cholesterol [Mass/Vol] 111 mg/dL <=200 [facility] Cholesterol in HDL [Mass/Vol] 59 mg/dL 40-60 [facility] Comment on above: > or =60 mg/dl - LOW CARDIOVASCULAR RISK<40 mg/dl - HIGH CARDIOVASCULAR RISK CO2 [Moles/Vol] 29.4 mmol/L 21.0-32.0 [facility] Creatinine [Mass/Vol] 1.39 mg/dL High 0.55-1.02 [facility] Free T4 [Mass/Vol] 1.14 ng/dL 0.76-1.46 [facility] GFR/1.73 sq M.predicted MDRD (S/P/Bld) [Vol rate/Area] 44 mL/min/{1.73_m2} Low >=60 mL/min/1.73 m 2 [facility] Glucose [Mass/Vol] 88 mg/dL 74-106 [facility] Potassium [Moles/Vol] 5.4 mmol/L High 3.5-5.1 [facility] Protein [Mass/Vol] 6.7 g/dL 6.4-8.2 [facility] Sodium [Moles/Vol] 143 mmol/L 136-145 [facility] Triglyceride [Mass/Vol] 114 mg/dL <=150 [facility] TSH Qn 0.958 m[IU]/L 0.358-3.740 [facility] Urea nitrogen [Mass/Vol] 44.0 mg/dL High 7.0-18.0 [facility] Urea nitrogen/Creatinine [Mass ratio] 31.7 mg/mg [facility] Laboratory - Hematology and Cell countson 11-01-2024 Band form neutrophils/100 WBC (Bld) 1.0 % 0-5 [facility] Lymphocytes/100 WBC (Bld) 66.0 % High 20.5-60.0 [facility] Monocytes/100 WBC (Bld) 7.0 % 1.7-12.0 F [facility] Leukocytes [#/volume] correc andreina for nucleated erythrocytes in Blood by Automated counon 11-01-2024 WBC corrected for nucl RBC Auto (Bld) [#/Vol] 21.6 10 3/uL High 4.0-11.0 [facility] MCH Auto (RBC) [Entitic mass ]on 11-01-2024 MCH (RBC) [Entitic mass] 30.2 pg 26.7-34.0 [facility] MCHC Auto (RBC) [Mass/Vol]on 11-01-2024 MCHC (RBC) [Mass/Vol] 31.8 g/dL 29.9-35.2 [facility] MCV Auto (RBC) [Entitic vol] on 11-01-2024 MCV (RBC) [Entitic vol] 95.0 fL 81.0-99.0 F [facility] Microalbumin [Mass/volume] i n Urineon 11-01-2024 Albumin DL <= 20 mg/L (U) [Mass/Vol] Microalbumin [Mass/volume] in Urine <=30.0 [facility] Albumin DL <= 20 mg/L (U) [Mass/Vol] 1.3 mg/dL <=30.0 [facility] No Panel Informationon 11-01 Absolute Basophils (Manual) 0.43 10 3/uL High 0.00-0.10 [facility] Band Neutrophils # (Manual) 0.2 10 3/uL 0.0-0.3 [facility] Eosinophils # (Manual) 0.21 10 3/uL 0.00-0.70 [facility] Free Triiodothyronine 1.62 pg/mL Low 2.18-3.98 [facility] Lymphocytes # (Manual) 14.25 10 3/uL High 1.20-3.80 [facility] Monocytes # (Manual) 1.51 10 3/uL High 0.30-0.80 [facility] Segmented Neutrophils # (Manual) 4.96 10 3/uL 1.4-6.5 [facility] Urine Random Creatinine 93.71 mg/dL 20.0 0-300.0 0 [facility] Ovalocyte detectionon 2024 Ovalocytes LM Ql (Bld) Ovalocyte detection [facility] Ovalocytes LM Ql (Bld) 1+ [facility] Platelet mean volume Auto (B ld) [Entitic vol]on 11-01-2024 Platelet mean volume (Bld) [Entitic vol] 11.0 fL 9.5-13.5 [facility] Platelets Auto (Bld) [#/Vol] on 11-01-2024 Platelets (Bld) [#/Vol] 239 10 3/uL 150-450 [facility] Poikilocytosis [Presence] in Blood by Light microscopyon 11-01-2024 Poikilocytosis LM Ql (Bld) Poikilocytosis [Presence] in Blood by Light microscopy [facility] Poikilocytosis LM Ql (Bld) 1+ [facility] RBC Auto (Bld) [#/Vol]on RBC (Bld) [#/Vol] 4.37 10 6/uL 4.20-5.40 [facility] Segmented neutrophils/100 WB C Manual cnt (Bld)on 11-01-2024 Segmented neutrophils/100 WBC (Bld) Manual blood segmented neutrophils/100 leukocytes Low 43.0-75.0 [facility] Segmented neutrophils/100 WBC (Bld) 23.0 % Low 43.0-75.0 [facility] Serum or plasma albumin/glob ulin mass ratioon 11-01-2024 Albumin/Globulin [Mass ratio] Serum or plasma albumin/globulin mass ratio [facility] Albumin/Globulin [Mass ratio] 1.0 {ratio} [facility] Serum or plasma anion gap de terminationon 11-01-2024 Anion gap [Moles/Vol] Serum or plasma an ion gap determination [facility] Anion gap [Moles/Vol] 10.0 mmol/L [facility] Serum or plasma total choles terol/high density lipoprotein (HDL) cholesterol mass faustino 11-01-2024 Cholesterol.total/Choles terol in HDL [Mass ratio] Serum or plasma total cholesterol/high density lipoprotein (HDL) cholesterol mass rat [facility] Comment on above: 3.3 - 4.4 LOW RISK4. 4 - 7.1 AVERAGE RISK7.1 - 11.0 MODERATE RISK>11.0 HIGH RISK Cholesterol.total/Choles terol in HDL [Mass ratio] 1.9 {ratio} [facility] Comment on above: 3.3 - 4.4 LOW RISK4. 4 - 7.1 AVERAGE RISK7.1 - 11.0 MODERATE RISK>11.0 HIGH RISK Urine microalbumin/creatinin e mass ratioon 11-01-2024 Albumin/Creatinine DL <= 20 mg/L (U) [Mass ratio] Urine microalbumin/creatini ne mass ratio 0.0-29.9 [facility] Comment on above: NO MICROALBUMINURIA 0-29 MG/GCLINICAL MICROALBUMINURIA 30-300 MG/GMACROALBUMINURIA >300 MG/G Albumin/Creatinine DL <= 20 mg/L (U) [Mass ratio] 13.8 mg/g 0.0-29.9 [facility] Comment on above: NO MICROALBUMINURIA 0-29 MG/GCLINICAL MICROALBUMINURIA 30-300 MG/GMACROALBUMINURIA >300 MG/G Reminderson 09-15-2024 Reminders Reminders From: Lori Bledsoe To: EU - Administrative; Sent: 02/24/2024 10:44:10 EDT Show up: 06/25/2024 09:43:00 EST Subject: 6 MO F/U Due Date/Time: 08/26/2024 09:43:00 EST Reminder/Recall PT SEEN ON 02/24/2024 BY JINNY IN [place]. PT WILL NEED A 6 MO F/U. APPT DUE BY 08/26/2024 NO ANSWER Pt is scheduled for 02/14/25. Normal [facility] Laboratory - Chemistry and C hemistry - challengeon 09-03-2024 Bilirubin Ql (U) Negative NEGATIVE [facility] Glucose (U) [Mass/Vol] Negative NEGATIVE [facility] Ketones Ql (U) TRACE mg/dL Abnormal NEGATIVE [facility] pH (U) 5.5 [pH] 5.0-9.0 [facility] Specific gravity (U) [Rel density] 1.025 1.005-1.025 [facility] Urobilinogen Qn (U) 0.2 {Jose'U}/dL 0.2-1.0 [facility] Laboratory - Specimen inform ationon 09-03-2024 Appearance (U) CLEAR CLEAR [facility] Color (U) LT YELLOW YELLOW [facility] Laboratory - Urinalysison Leukocyte esterase Test strip Ql (U) Negative NEGATIVE [facility] Nitrite Ql (U) Negative NEGATIVE [facility] Protein Ql (U) TRACE mg/dL NEG/TRACE [facility] No Panel Informationon 09-03 Urine Occult Blood Negative NEGATIVE [facility] Urine Cultureon 09-03-2024 Bacteria identified Cx Nom (U) 75,000 colonies/ml mixed bacterial skin contaminants 2 Days PERFORMED BY: [place] [address] PATHOLOGIST [employer] IDA ARMIJO M.D. Normal [facility] Comment on above: Performed By: #### C UU #### [address] Ambulatory Visit Summaryon 0 08-16-2024 Ambulatory [...] SUSAN RANDOLPH PA-C Where: [facility] [address] [place] [address]- You Need to Schedule the Following Appointments Follow Up with JAX PA-C, SUSAN E, URL When: In 6 months Where: [address] [place] [address] Medications What How Much When Instructions New estradiol topical (Estrace 0.1 mg/ g Cream) See instructions Refills: 6 apply a pea-sized amount vaginally and around the urethra 3x per week for UTI prevention Pickup at [facility] Unchanged acetaminophen-oxycodo ne (acetaminophen-oxycod one 325 [...] Discount D (more content not included)... Normal [facility] Urology Office/Clinic Noteon 08-16-2024 Urology Office/Clinic Note [...] will consider cystoscopy w possible UD. Ordered: [id number] Measure Post Void residual urine and/or bladder capacity by US- non-imaging Complex E&M Add on G2211 E&M of Est. Patient Moderate 30-39 Min 81943 Urnls Dip Stick Auto w/o Microscopy POC 73475 2. Urgency incontinence (N39.41: Urge incontinence) S/p Botox 100u 08/30/21. Malone sxs only improved for a few weeks [...] E&M of Est. Patient Moderate 30-39 Min 36780 Orders: estradiol topical, See Instructions, 42.5 gm, Refill(s) 6, apply a pea-sized amount vaginally and around the urethra 3x per week for UTI prevention, [facility], 178, cm, 08/16/24 9:10:00 EST, Height/Length Dosing, 103, kg, 08/16/24 9:10:00 EST, Weight Do... Follow-up With When Contact Information SUSAN RADNOLPH PA-C, URL In 6 months [address] [place] [address] Additional Instructions: Patient Education Antibiotic [...] ne 325 (more content not included)... Normal [facility] Comment on above: Result Comment: Elec tronically Signed By: SUSAN RANDOLPH PA-C\.br\Date and Time Signed: 08/16/24 10:05 EST Appearance of UrineOrdered B y: Ayanna Vicente on 08-10-2024 Appearance (U) Urine appearance Abnormal Clear [facility] Bacteria [Presence] in Urine by AutomatedOrdered By: Ayanna Vicente on 08-10-2024 Bacteria Auto Ql (U) Bacteria [Presence] in Urine by Automated None Seen [facility] Bilirubin Test strip Ql (U)O rdered By: Ayanna Vicente on 08-10-2024 Bilirubin Ql (U) Bilirubin.total [Presence] in Urine by Test strip Negative [facility] Color Auto (U)Ordered By: Vasile Vicente on 08-10-2024 Color (U) Color of Urine by Auto Abnormal Yellow [facility] Dipstick and Microscopicon 0 08-10-2024 Appearance (U) Cloudy Critically abnormal Clear [facility] Comment on above: Order Comment: Name Collection Type:: Clean-Voided Midstream Performed By: #### A DDONUAPLUS, CUU #### [address] Bacteria,Urine None Seen Normal None Seen [facility] Comment on above: Order Comment: Name Collection Type:: Clean-Voided Midstream Performed By: #### A DDONUAPLUS, CUU #### [place] [address] [place] Bilirubin,Urine Negative Normal Negative [facility] Comment on above: Order Comment: Name Collection Type:: Clean-Voided Midstream Performed By: #### A DDONUAPLUS, CUU #### [address] Color (U) Dark-Yellow Critically abnormal Yellow [facility] Comment on above: Order Comment: Name Collection Type:: Clean-Voided Midstream Performed By: #### A DDONUAPLUS, CUU #### [place] [address] [place] Glucose Ql (U) Normal Normal Normal [facility] Comment on above: Order Comment: Name Collection Type:: Clean-Voided Midstream Performed By: #### A DDONUAPLUS, CUU #### [place] [address] [place] Hyaline Casts,Urine 0 [LPF] Normal 0-8 [facility] Comment on above: Order Comment: Name Collection Type:: Clean-Voided Midstream Performed By: #### A DDONUAPLUS, CUU #### [place] [address] [place] Ketones Ql (U) Negative Normal Negative [facility] Comment on above: Order Comment: Name Collection Type:: Clean-Voided Midstream Performed By: #### A DDONUAPLUS, CUU #### [place] [address] [place] Leukocyte esterase Test strip Ql (U) 4+ High Negative [facility] Comment on above: Order Comment: Name Collection Type:: Clean-Voided Midstream Performed By: #### A DDONUAPLUS, CUU #### [address] Mucus,Urine Rare Normal [facility] Comment on above: Order Comment: Name Collection Type:: Clean-Voided Midstream Result Comment: PERF ORMED BY: [place] [address] PATHOLOGIST [employer] IDA ARMIJO M.D. Performed By: #### A DDONUAPLUS, CUU #### [address] Nitrite,Urine Positive High Negative [facility] Comment on above: Order Comment: Name Collection Type:: Clean-Voided Midstream Performed By: #### A DDONUAPLUS, CUU #### [address] Occult Blood,Urine Negative Normal Negative [facility] Comment on above: Order Comment: Name Collection Type:: Clean-Voided Midstream Result Comment: PERF ORMED BY: [place] [address] PATHOLOGIST [employer] IDA ARMIJO M.D. Performed By: #### A DDONUAPLUS, CUU #### [address] pH (U) 6.0 [pH] Normal 5.0-9.0 [facility] Comment on above: Order Comment: Name Collection Type:: Clean-Voided Midstream Performed By: #### A DDONUAPLUS, CUU #### [place] [address] [place] Protein (U) [Mass/Vol] 30 mg/dL High Negative [facility] Comment on above: Order Comment: Name Collection Type:: Clean-Voided Midstream Performed By: #### A DDONUAPLUS, CUU #### [address] [place] [address] [place] RBC,Urine 1 [HPF] Normal 0-4 [facility] Comment on above: Order Comment: Name Collection Type:: Clean-Voided Midstream Performed By: #### A DDONUAPLUS, CUU #### [address] Specificy [place],Urine 1.022 Normal 1.001-1.030 [facility] Comment on above: Order Comment: Name Collection Type:: Clean-Voided Midstream Performed By: #### A DDONUAPLUS, CUU #### [address] Squamous Epithelial Cell,Urine 1 [HPF] Normal 0-2 [facility] Comment on above: Order Comment: Name Collection Type:: Clean-Voided Midstream Performed By: #### A DDONUAPLUS, CUU #### [address] Urobilinogen,Urine Normal Normal Normal [facility] Comment on above: Order Comment: Name Collection Type:: Clean-Voided Midstream Performed By: #### A DDONUAPLUS, CUU #### [address] WBC CLUMP, Urine Many High None Seen [facility] Comment on above: Order Comment: Name Collection Type:: Clean-Voided Midstream Performed By: #### A DDONUAPLUS, CUU #### [address] WBC,Urine Innumerable High 0-4 [facility] Comment on above: Order Comment: Name Collection Type:: Clean-Voided Midstream Performed By: #### A DDONUAPLUS, CUU #### [address] Epithelial cells.squamous [# /area] in Urine sediment by Automated countOrdered By: Ayanna Vicente on 08-10-2024 Epithelial cells.squamous Auto (Urine sed) [#/Area] Epithelial cells.squamous [#/area] in Urine sediment by Automated count 0-2 [facility] Erythrocytes [#/area] in Uri ne sediment by Automated countOrdered By: Ayanna Vicente on 08-10-2024 RBC Auto (Urine sed) [#/Area] Erythrocytes [#/area] in Urine sediment by Automated count 0-4 [facility] Glucose [Mass/volume] in Uri ne by Test stripOrdered By: Ayanna Vicente on 08-10-2024 Glucose Test strip (U) [Mass/Vol] Glucose [Mass/volume] in Urine by Test strip Normal [facility] Hemoglobin Test strip Ql (U) Ordered By: Ayanna Vicente on 08-10-2024 Hemoglobin Ql (U) Hemoglobin [Presence ] in Urine by Test strip Negative [facility] Hyaline casts [#/area] in Ur ine sediment by Automated countOrdered By: Ayanna Vicente on 08-10-2024 Hyaline casts Auto (Urine sed) [#/Area] Hyaline casts [#/area] in Urine sediment by Automated count 0-8 [facility] Ketones Test strip Ql (U)Ord ered By: Ayanna Vicente on 08-10-2024 Ketones Ql (U) Ketones [Presence] i n Urine by Test strip Negative [facility] Leukocyte clumps [Presence] in Urine by AutomatedOrdered By: Ayanna Vicente on 08-10-2024 Leukocyte clumps Auto Ql (U) Leukocyte clumps [Presence] in Urine by Automated High None Seen [facility] Leukocyte esterase [Presence ] in Urine by Test stripOrdered By: Ayanna Vicente on 08-10-2024 Leukocyte esterase Test strip Ql (U) Leukocyte esterase [Presence] in Urine by Test strip High Negative [facility] Leukocytes [#/area] in Urine sediment by Automated countOrdered By: Ayanna Vicente on 08-10-2024 WBC Auto (Urine sed) [#/Area] Leukocytes [#/area] in Urine sediment by Automated count High 0-4 [facility] Mucus [Presence] in Urine by AutomatedOrdered By: Ayanna Vicente on 08-10-2024 Mucus Auto Ql (U) Mucus [Presence] in Urine by Automated [facility] Nitrite Test strip Ql (U)Ord ered By: Ayanna Vicente on 08-10-2024 Nitrite Ql (U) Nitrite [Presence] i n Urine by Test strip High Negative [facility] Protein Test strip (U) [Mass /Vol]Ordered By: Ayanna Vicente on 08-10-2024 Protein (U) [Mass/Vol] Protein [Mass/vol ume] in Urine by Test strip High Negative [facility] Specific gravity Test strip (U) [Rel density]Ordered By: Ayanna Vicente on 08-10-2024 Specific gravity (U) [Rel density] Specific gravity of Urine by Test strip 1.001-1.030 [facility] Urine Cultureon 08-10-2024 Bacteria identified Cx Nom (U) ORGANISM: Escherichia coli (O:ESCCOL) [place] Count >100,000 Aerobic CORNELIA Charge (NMIC56) ---- [...] RESISTANT TO ALL B-LACTAM DRUGS. PERFORMED BY: [place] [address] [place], [place] [id number] PATHOLOGIST [employer] R[employer] IDA ARMIJO M.D. Normal [facility] Comment on above: Performed By: #### A PERNELL JOINER #### [facility] [address] Urine cultureOrdered By: Aftab Vicente on 08-10-2024 Bacteria identified Cx Nom (U) Escherichia coli Abnormal [facility] Urobilinogen Test strip (U) [Mass/Vol]Ordered By: Ayanna Vicente on 08-10-2024 Urobilinogen (U) [Mass/Vol] Urobilinogen [Mass/volume] in Urine by Test strip Normal [facility] pH Test strip (U)Ordered By: Ayanna Vicente on 08-10-2024 pH (U) pH of Urine by Test strip 5.0-9.0 [facility] ALL THYROID STIM HORMONEon 1 08-23-2023 TSH Qn 2.632 m[IU]/L [facility] Estimated glomerular filtrat ion rate (GFR) non- Americanon 06-22-2024 GFR/1.73 sq M.predicted among non-blacks MDRD (S/P/Bld) [Vol rate/Area] Estimated glomerular filtration rate (GFR) non- Low >=60 mL/min/1.73 m 2 [facility] Laboratory - Chemistry and C hemistry - challengeon 06-22-2024 Calcium [Mass/Vol] 9.2 mg/dL 8.5-10.1 [facility] Chloride [Moles/Vol] 105 mmol/L 98-107 [facility] CO2 [Moles/Vol] 30.0 mmol/L 21.0-32.0 [facility] Cobalamin (Vitamin B12) [Mass/Vol] 721 pg/mL 232-1245 [facility] Comment on above: Performed at: [facility] [address] [id number] Director: Narinder Elam PhD, Phone: [phone] Creatinine [Mass/Vol] 1.36 mg/dL High 0.55-1.02 [facility] GFR/1.73 sq M.predicted MDRD (S/P/Bld) [Vol rate/Area] 45 mL/min/{1.73_m2} Low >=60 mL/min/1.73 m 2 [facility] Glucose [Mass/Vol] 125 mg/dL High 74-106 [facility] Potassium [Moles/Vol] 4.8 mmol/L 3.5-5.1 [facility] Sodium [Moles/Vol] 141 mmol/L 136-145 [facility] TSH Qn 2.632 m[IU]/L 0.358-3.740 [facility] Urea nitrogen [Mass/Vol] 28.0 mg/dL High 7.0-18.0 [facility] Urea nitrogen/Creatinine [Mass ratio] 20.6 mg/mg [facility] Serum or plasma anion gap de terminationon 06-22-2024 Anion gap [Moles/Vol] Serum or plasma an ion gap determination [facility] Basophils/100 WBC Manual cnt (Bld)on 06-15-2024 Basophils/100 WBC (Bld) Basophils/100 leukocytes in Blood by Manual count 0.2-2.0 [facility] Eosinophils/100 WBC Manual c nt (Bld)on 06-15-2024 Eosinophils/100 WBC (Bld) Eosinophils/100 leukocytes in Blood by Manual count 0.9-7.0 [facility] Erythrocyte distribution wid th Auto (RBC) [Ratio]on 06-15-2024 Erythrocyte distribution width (RBC) [Ratio] Erythrocyte distribution width [Ratio] by Automated count 11.0-15.0 [facility] Estimated glomerular filtrat ion rate (GFR) non- Americanon 06-15-2024 GFR/1.73 sq M.predicted among non-blacks MDRD (S/P/Bld) [Vol rate/Area] Estimated glomerular filtration rate (GFR) non- Low >=60 mL/min/1.73 m 2 [facility] Globulin Calc (S) [Mass/Vol] on 06-15-2024 Globulin (S) [Mass/Vol] Serum globulin measurement by calculation (mass/volume) [facility] Hematocrit Auto (Bld) [Volum e fraction]on 06-15-2024 Hematocrit (Bld) [Volume fraction] Hematocrit [Volume Fraction] of Blood by Automated count 36.0-48.0 [facility] Hemoglobin [Mass/volume] in Bloodon 06-15-2024 Hemoglobin (Bld) [Mass/Vol] Hemoglobin [Mass/volume] in Blood 12.0-16.0 [facility] Curt 06-15-2024 L - -------- Specimen: [id number] Received: 06/16/24 Status: JEFFERY Lemon Num: [id number] Spec Type: Impression Subm Dr: Tri Ag DO Tissues: PATHPER Procedures: PATHREVIEW -------- Age/ Patient Sex Location Account Attending Physician -------- Kathy Washburn 83/F [facility] [id number] Tri Ag DO -------- SPEC NUM: [id number] RECD: 06/16/24 STATUS: JEFFERY LEMON NUM: [id number] JESSICA: 06/15/24- SUBM DR: Tri Ag DO ENTERED: 06/16/24-[address]: Angi Astudillo SPEC TYPE: Impression DEPT: [facility] Lance ENTERED BY: [id number] RECV BY: [id number] ORDERED: PATHREVIEW ORDERED: PATHREVIEW Pathologist Review Peripheral blood smear evaluation: - Severe lymphocytosis with atypical lymphocytes and smudges consistent with CLL, flow cytometry if clinically indicated. - Red blood cell and Platelet: Unremarkable. CPT: 30428 Jose Angel Kc MD 06/16/24 -------- -------- Specimen: [id number] Received: 06/16/24 Status: JEFFERY Argenis Num: [id number] Spec Type: Impression Subm Dr: Tri Ag DO Tissues: PATHPER Procedures: PATHREVIEW -------- Patient: Kathy Washburn [id number] (Continued) -------- Signed (signature on file) Jose Angel Kc MD 06/16/24 1635 Normal [facility] Laboratory - Chemistry and C hemistry - challengeon 06-15-2024 Albumin [Mass/Vol] 3.5 g/dL 3.4-5.0 [facility] ALP [Catalytic activity/Vol] 103 U/L 46-116 [facility] ALT [Catalytic activity/Vol] 34 U/L 14-59 [facility] AST [Catalytic activity/Vol] 25 U/L 15-37 [facility] Bilirubin [Mass/Vol] 0.3 mg/dL 0.2-1.0 [facility] Calcium [Mass/Vol] 9.1 mg/dL 8.5-10.1 [facility] Chloride [Moles/Vol] 108 mmol/L High 98-107 [facility] CO2 [Moles/Vol] 28.4 mmol/L 21.0-32.0 [facility] Creatinine [Mass/Vol] 1.42 mg/dL High 0.55-1.02 [facility] GFR/1.73 sq M.predicted MDRD (S/P/Bld) [Vol rate/Area] 43 mL/min/{1.73_m2} Low >=60 mL/min/1.73 m 2 [facility] Glucose [Mass/Vol] 140 mg/dL High 74-106 [facility] Potassium [Moles/Vol] 4.3 mmol/L 3.5-5.1 [facility] Protein [Mass/Vol] 6.9 g/dL 6.4-8.2 [facility] Sodium [Moles/Vol] 143 mmol/L 136-145 [facility] Urea nitrogen [Mass/Vol] 31.0 mg/dL High 7.0-18.0 [facility] Urea nitrogen/Creatinine [Mass ratio] 21.8 mg/mg [facility] Laboratory - Hematology and Cell countson 06-15-2024 Lymphocytes/100 WBC (Bld) 54.0 % 20.5-60.0 [facility] Monocytes/100 WBC (Bld) 0.0 % Low 1.7-12.0 F [facility] Leukocytes [#/volume] correc andreina for nucleated erythrocytes in Blood by Automated counon 06-15-2024 WBC corrected for nucl RBC Auto (Bld) [#/Vol] Leukocytes [#/volume] corrected for nucleated erythrocytes in Blood by Automated coun High 4.0-11.0 [facility] MCH Auto (RBC) [Entitic mass ]on 06-15-2024 MCH (RBC) [Entitic mass] MCH [Entitic ma ss] by Automated count 26.7-34.0 [facility] MCHC Auto (RBC) [Mass/Vol]on 06-15-2024 MCHC (RBC) [Mass/Vol] MCHC [Mass/volume] by Automated count 29.9-35.2 [facility] MCV Auto (RBC) [Entitic vol] on 06-15-2024 MCV (RBC) [Entitic vol] MCV [Entitic vol ume] by Automated count 81.0-99.0 [facility] No Panel Informationon 06-15 Absolute Basophils (Manual) 0.22 10 3/uL High 0.00-0.10 [facility] Add Manual Differential See comment [facility] Comment on above: SEE SCANNED REPORT Eosinophils # (Manual) 0.44 10 3/uL 0.00-0.70 [facility] Lymphocytes # (Manual) 11.88 10 3/uL High 1.20-3.80 [facility] Monocytes # (Manual) 0.00 10 3/uL Low 0.30-0.80 [facility] Reactive Lymphocytes 1.76 [facility] Reactive Lymphocytes 8.0 % [facility] Segmented Neutrophils # (Manual) 7.70 10 3/uL High 1.4-6.5 [facility] Platelet mean volume Auto (B ld) [Entitic vol]on 06-15-2024 Platelet mean volume (Bld) [Entitic vol] Platelet mean volume [Entitic volume] in Blood by Automated count 9.5-13.5 [facility] Platelets Auto (Bld) [#/Vol] on 06-15-2024 Platelets (Bld) [#/Vol] Platelets [#/vol ume] in Blood by Automated count 150-450 [facility] RBC Auto (Bld) [#/Vol]on RBC (Bld) [#/Vol] Erythrocytes [#/volume] in Blood by Automated count 4.20-5.40 [facility] Segmented neutrophils/100 WB C Manual cnt (Bld)on 06-15-2024 Segmented neutrophils/100 WBC (Bld) Manual blood segmented neutrophils/100 leukocytes Low 43.0-75.0 [facility] Serum or plasma albumin/glob ulin mass ratioon 06-15-2024 Albumin/Globulin [Mass ratio] Serum or plasma albumin/globulin mass ratio [facility] Serum or plasma anion gap de terminationon 06-15-2024 Anion gap [Moles/Vol] Serum or plasma an ion gap determination [facility] Smudge cell detectionon Smudge cells LM Ql (Bld) Smudge cell detection [facility] Basophils Auto (Bld) [#/Vol] on 05-26-2024 Basophils (Bld) [#/Vol] Automated basoph il count <0.11 [facility] Basophils/100 WBC Auto (Bld) on 05-26-2024 Basophils/100 WBC (Bld) Automated basophil % [facility] Blood manual differential co mment interpretation narrativeon 05-26-2024 Manual differential comment Himanshu (Bld) [Interp] Blood manual differential comment interpretation narrative [facility] CBC W Auto Differential pane l (Bld)on 05-26-2024 Basophils (Bld) [#/Vol] 0.00 10*3/uL Normal <0.11 [facility] Comment on above: Order Comment: Speci men Type: BLOOD SPECIMEN Ordering Facility: [facility] Address: [address] [place] [address] Performed By: #### 5 7021-8 #### [facility] CLIA [id number] [address] [place] [address] LAB CLIA [id number] [address] [place] [address] [place] Basophils/100 WBC (Bld) 0.0 % Normal C [facility] Comment on above: Order Comment: Speci men Type: BLOOD SPECIMEN Ordering Facility: [facility] Address: [address] [place] [address] Performed By: #### 5 7021-8 #### [facility] CLIA [id number] [address] [place] [address] LAB CLIA [id number] [address] [place] [address] [place] Differential cell count method Nom (Bld) Manual Normal [facility] Comment on above: Order Comment: Speci men Type: BLOOD SPECIMEN Ordering Facility: [facility] Address: [address] [place] [address] Performed By: #### 5 7021-8 #### [facility] CLIA [id number] [address] [place] [address] LAB CLIA [id number] [address] [place] [address] [place] Eosinophils (Bld) [#/Vol] 0.19 10*3/uL Normal <0.46 [facility] Comment on above: Order Comment: Speci men Type: BLOOD SPECIMEN Ordering Facility: [facility] Address: [address] [place] [address] Performed By: #### 5 7021-8 #### [facility] CLIA [id number] [address] [place] [address] LAB CLIA [id number] [address] [place] [address] [place] Eosinophils/100 WBC (Bld) 1.0 % Normal [facility] Comment on above: Order Comment: Speci men Type: BLOOD SPECIMEN Ordering Facility: [facility] Address: [address] [place] [address] Performed By: #### 5 7021-8 #### [facility] CLIA [id number] [address] [place] [address] LAB CLIA [id number] [address] [place] [address] [place] Erythrocyte distribution width (RBC) [Ratio] 14.2 % Normal 11.5-15.0 [facility] Comment on above: Order Comment: Speci men Type: BLOOD SPECIMEN Ordering Facility: [facility] Address: [address] [place] [address] Performed By: #### 5 7021-8 #### [facility] CLIA [id number] [address] [place] [address] LAB CLIA [id number] [address] [place] [address] [place] Hematocrit (Bld) [Volume fraction] 38.4 % Normal 36.0-46.0 [facility] Comment on above: Order Comment: Speci men Type: BLOOD SPECIMEN Ordering Facility: [facility] Address: [address] [place] [address] Performed By: #### 5 7021-8 #### [facility] CLIA [id number] [address] [place] [address] LAB CLIA [id number] [address] [place] [address] [place] Hemoglobin (Bld) [Mass/Vol] 12.7 g/dL Normal 11.5-15.5 [facility] Comment on above: Order Comment: Speci men Type: BLOOD SPECIMEN Ordering Facility: [facility] Address: [address] [place] [address] Performed By: #### 5 7021-8 #### [facility] CLIA [id number] [address] [place] [address] LAB CLIA [id number] [address] [place] [address] [place] Lymphocytes (Bld) [#/Vol] 14.61 10*3/uL High 1.00-4.00 [facility] Comment on above: Order Comment: Speci men Type: BLOOD SPECIMEN Ordering Facility: [facility] Address: [address] [place] [address] Performed By: #### 5 7021-8 #### [facility] CLIA [id number] [address] [place] [address] LAB CLIA [id number] [address] [place] [address] [place] Lymphocytes/100 WBC (Bld) 76.0 % Normal [facility] Comment on above: Order Comment: Speci men Type: BLOOD SPECIMEN Ordering Facility: [facility] Address: [address] [place] [address] Performed By: #### 5 7021-8 #### [facility] CLIA [id number] [address] [place] [address] LAB CLIA [id number] [address] [place] [address] [place] MCH (RBC) [Entitic mass] 30.0 pg Normal 26.0-34.0 [facility] Comment on above: Order Comment: Speci men Type: BLOOD SPECIMEN Ordering Facility: [facility] Address: [address] [place] [address] Performed By: #### 5 7021-8 #### [facility] CLIA [id number] [address] [place] [address] LAB CLIA [id number] [address] [place] [address] [place] MCHC (RBC) [Mass/Vol] 33.1 g/dL Normal 30.5-36.0 [facility] Comment on above: Order Comment: Speci men Type: BLOOD SPECIMEN Ordering Facility: [facility] Address: [address] [place] [address] Performed By: #### 5 7021-8 #### [facility] CLIA [id number] [address] [place] [address] LAB CLIA [id number] [address] [place] [address] [place] MCV (RBC) [Entitic vol] 90.8 fL Normal 80.0-100.0 C [facility] Comment on above: Order Comment: Speci men Type: BLOOD SPECIMEN Ordering Facility: [facility] Address: [address] [place] [address] Performed By: #### 5 7021-8 #### [facility] CLIA [id number] [address] [place] [address] LAB CLIA [id number] [address] [place] [address] [place] Monocytes (Bld) [#/Vol] 0.19 10*3/uL Normal <0.87 [facility] Comment on above: Order Comment: Speci men Type: BLOOD SPECIMEN Ordering Facility: [facility] Address: [address] [place] [address] Performed By: #### 5 7021-8 #### [facility] CLIA [id number] [address] [place] [address] LAB CLIA [id number] [address] [place] [address] [place] Monocytes/100 WBC (Bld) 1.0 % Normal C [facility] Comment on above: Order Comment: Speci men Type: BLOOD SPECIMEN Ordering Facility: [facility] Address: [address] [place] [address] Performed By: #### 5 7021-8 #### [facility] CLIA [id number] [address] [place] [address] LAB CLIA [id number] [address] [place] [address] [place] Neutrophils (Bld) [#/Vol] 4.23 10*3/uL Normal 1.45-7.50 [facility] Comment on above: Order Comment: Speci men Type: BLOOD SPECIMEN Ordering Facility: [facility] Address: [address] [place] [address] Performed By: #### 5 7021-8 #### [facility] CLIA [id number] [address] [place] [address] LAB CLIA [id number] [address] [place] [address] [place] Neutrophils/100 WBC (Bld) 22.0 % Normal [facility] Comment on above: Order Comment: Speci men Type: BLOOD SPECIMEN Ordering Facility: [facility] Address: [address] [place] [address] Performed By: #### 5 7021-8 #### [facility] CLIA [id number] [address] [place] [address] LAB CLIA [id number] [address] [place] [address] [place] Nucleated RBC (Bld) [#/Vol] 10*3/uL Normal <0.01 [facility] Comment on above: Order Comment: Speci men Type: BLOOD SPECIMEN Ordering Facility: [facility] Address: [address] [place] [address] Performed By: #### 5 7021-8 #### [facility] CLIA [id number] [address] [place] [address] LAB CLIA [id number] [address] [place], [place] [id number] [place] Nucleated RBC/100 WBC (Bld) [Ratio] 0.0 /100 WBC Normal [facility] Comment on above: Order Comment: Speci men Type: BLOOD SPECIMEN Ordering Facility: [facility] Address: [address] [place] [address] Performed By: #### 5 7021-8 #### [facility] CLIA [id number] [address] [place] [address] LAB CLIA [id number] [address] [place] [address] [place] Ovalocytes LM Ql (Bld) Few Normal [facility] Comment on above: Order Comment: Speci men Type: BLOOD SPECIMEN Ordering Facility: [facility] Address: [address] [place] [address] Performed By: #### 5 7021-8 #### [facility] CLIA [id number] [address] [place] [address] LAB CLIA [id number] [address] [place] [address] [place] Platelet mean volume (Bld) [Entitic vol] 10.4 fL Normal 9.0-12.7 [facility] Comment on above: Order Comment: Speci men Type: BLOOD SPECIMEN Ordering Facility: [facility] Address: [address] [place] [address] Performed By: #### 5 7021-8 #### [facility] CLIA [id number] [address] [place] [address] LAB CLIA [id number] [address] [place] [address] [place] Platelets (Bld) [#/Vol] 244 10*3/uL Normal 150-400 [facility] Comment on above: Order Comment: Speci men Type: BLOOD SPECIMEN Ordering Facility: [facility] Address: [address] [place] [address] Performed By: #### 5 7021-8 #### [facility] CLIA [id number] [address] LAB CLIA [id number] [address] [place] [address] [place] Platelets Estimate (Bld) [#/Vol] Adequate Normal [facility] Comment on above: Order Comment: Speci men Type: BLOOD SPECIMEN Ordering Facility: [facility] Address: [address] [place] [address] Performed By: #### 5 7021-8 #### [facility] CLIA [id number] [address] [place] [address] LAB CLIA [id number] [address] [place] [address] [place] Polychromasia LM Ql (Bld) Slight Normal [facility] Comment on above: Order Comment: Speci men Type: BLOOD SPECIMEN Ordering Facility: [facility] Address: [address] [place] [address] Performed By: #### 5 7021-8 #### [facility] CLIA [id number] [address] [place] [address] LAB CLIA [id number] [address] [place] [address] [place] RBC (Bld) [#/Vol] 4.23 10*6/uL Normal 3.90-5.[address] [facility] Comment on above: Order Comment: Speci men Type: BLOOD SPECIMEN Ordering Facility: [facility] Address: [address] [place] [address] Performed By: #### 5 7021-8 #### [facility] CLIA [id number] [address] [place] [address] LAB CLIA [id number] [address] [place] [address] [place] RED CELL MORPH Reviewed: see result s of individual morphologies Normal [facility] Comment on above: Order Comment: Speci men Type: BLOOD SPECIMEN Ordering Facility: [facility] Address: [address] [place] [address] Performed By: #### 5 7021-8 #### [facility] CLIA [id number] [address] [place], [place] [id number] [facility] CLIA [id number] [address] [place] [address] [place] WBC (Bld) [#/Vol] 19.22 10*3/uL High 3.70-11.00 [facility] Comment on above: Order Comment: Speci men Type: BLOOD SPECIMEN Ordering Facility: [facility] Address: [address] [place] [address] Result Comment: No c lot detected.Results checked and verified. Performed By: #### 5 7021-8 #### [facility] CLIA [id number] [address] [place] [address] LAB CLIA [id number] [address] [place] [address] [place] CNOVSPon 05-26-2024 CNOVSP Visit (SP) Office ([place]) ROBERT WASHBURNRA Car ([id number]) 1940 F Date Time Provider Department 05/26/24 2:00 PM CHAD FREITAS HEMASA During your visit today, we recorded the following information about you: Temperature Pulse Respiration Blood pressure 97 degrees 70/minute 16/minute 92/51 Weight Height 105.3 kg 1.727 m Chad Freitas MD 05/26/2024 2:41 PM Signed PATIENT NAME: Kathy Washburn [facility] NO.: [id number] ATTENDING PHYSICIAN: Chad Freitas MD DATE OF [...] sweats - Did mammogram last week at [facility]. 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 Normal [facility] metabolic 2000 panelOrdered By: Malka Galvez on 05-26-2024 Albumin [Mass/Vol] 4.1 g/dL 3.9 - 4.9 g/dL [facility] ALP [Catalytic activity/Vol] 107 U/L 34 - 123 U/L [facility] ALT [Catalytic activity/Vol] 21 U/L 7 - 38 U/L [facility] Anion gap [Moles/Vol] 11 mmol/L 8 - 15 mmol/L [facility] AST [Catalytic activity/Vol] 23 U/L 13 - 35 U/L [facility] Bilirubin [Mass/Vol] 0.2 mg/dL 0.2 - 1 .3 mg/dL [facility] Calcium [Mass/Vol] 9.3 mg/dL 8.5 - 10. 2 mg/dL [facility] Chloride [Moles/Vol] 105 mmol/L 98 - 10 7 mmol/L [facility] CO2 [Moles/Vol] 26 mmol/L 22 - 30 mmol/L [facility] Creatinine [Mass/Vol] 1.20 mg/dL High 0.58 - 0.96 mg/dL [facility] GFR/1.73 sq M.predicted among non-blacks MDRD (S/P/Bld) [Vol rate/Area] 46 mL/min/{1.73_m2} Low - PINF [facility] Comment on above: Estimated Glomerular Filtration [...] 231 mg/dL High 74 - 99 mg/dL [facility] Comment on above: The [place] [employer] (ADA) provides guidance for [...] Standards of Medical Care in Diabetes 2016, [place] [employer]. Diabetes Care. 2016.39(Suppl 1). Interpretation and review of laboratory results Abnormal [facility] Potassium [Moles/Vol] 5.3 mmol/L High 3.7 - 5.1 mmol/L [facility] Protein [Mass/Vol] 6.9 g/dL 6.3 - 8.0 g/dL [facility] Sodium [Moles/Vol] 142 mmol/L 136 - 144 mmol/L [facility] Urea nitrogen [Mass/Vol] 36 mg/dL High 7 - 21 mg/dL [facility] Comprehensive metabolic 2000 panelon 05-26-2024 Albumin [Mass/Vol] 4.1 g/dL Normal 3.9-4.9 [facility] Comment on above: Order Comment: Speci men Type: BLOOD SPECIMEN Ordering Facility: [facility] Address: [address] [place] [address] Performed By: #### 2 532-0, 96558-9 #### [facility] CLIA [id number] [address] [place] [address] ALP [Catalytic activity/Vol] 107 U/L Normal 34-123 [facility] Comment on above: Order Comment: Speci men Type: BLOOD SPECIMEN Ordering Facility: [facility] Address: [address] [place] [address] Performed By: #### 2 532-0, 19456-1 #### [facility] CLIA [id number] [address] [place] [address] ALT [Catalytic activity/Vol] 21 U/L Normal 7-38 [facility] Comment on above: Order Comment: Speci men Type: BLOOD SPECIMEN Ordering Facility: [facility] Address: [address] [place] [address] Performed By: #### 2 532-0, #### [facility] CLIA [id number] [address] [place] [address] Anion gap [Moles/Vol] 11 mmol/L Normal 8-15 [facility] Comment on above: Order Comment: Speci men Type: BLOOD SPECIMEN Ordering Facility: [facility] Address: [address] [place] [id number] Performed By: #### 2 532-0, #### [facility] CLIA [id number] [address] [place] [address] AST [Catalytic activity/Vol] 23 U/L Normal 13-35 [facility] Comment on above: Order Comment: Speci men Type: BLOOD SPECIMEN Ordering Facility: [facility] Address: [address] [place], [place] [id number] Performed By: #### 2 532-0, #### [facility] CLIA [id number] [address] [place] [address] Bilirubin [Mass/Vol] 0.2 mg/dL Normal 0.2-1.3 [facility] Comment on above: Order Comment: Speci men Type: BLOOD SPECIMEN Ordering Facility: [facility] Address: [address] [place] [address] Performed By: #### 2 532-0, #### [facility] CLIA [id number] [address] [place] [address] Calcium [Mass/Vol] 9.3 mg/dL Normal 8.5-10.2 [facility] Comment on above: Order Comment: Speci men Type: BLOOD SPECIMEN Ordering Facility: [facility] Address: [address] [place] [address] Performed By: #### 2 532-0, 02010-3 #### [facility] CLIA [id number] [address] [place] [address] Chloride [Moles/Vol] 105 mmol/L Normal 98-107 [facility] Comment on above: Order Comment: Speci men Type: BLOOD SPECIMEN Ordering Facility: [facility] Address: [address] [place] [address] Performed By: #### 2 532-0, 33168-1 #### [facility] CLIA [id number] [address] [place] [address] CO2 [Moles/Vol] 26 mmol/L Normal 22-30 [facility] Comment on above: Order Comment: Speci men Type: BLOOD SPECIMEN Ordering Facility: [facility] Address: [address] [place] [address] Performed By: #### 2 532-0, 22912-1 #### [facility] CLIA [id number] [address] [place] [address] Creatinine [Mass/Vol] 1.20 mg/dL High 0.58-0.96 [facility] Comment on above: Order Comment: Speci men Type: BLOOD SPECIMEN Ordering Facility: [facility] Address: [address] [place] [address] Performed By: #### 2 532-0, 57358-7 #### [facility] CLIA [id number] [address] [place] [address] Creatinine and Glomerular filtration rate.predicted panel (S/P/Bld) 46 mL/min/1.73m??? Low >=60 [facility] Comment on above: Order Comment: Speci men Type: BLOOD SPECIMEN Ordering Facility: [facility] Address: [address] [place] [address] Result Comment: Aimee mated Glomerular Filtration Rate [...] actual GFR. Performed By: #### 2 532-0, 75810-1 #### [facility] CLIA [id number] [address] [place] [address] Glucose [Mass/Vol] 231 mg/dL High 74-99 [facility] Comment on above: Order Comment: Speci men Type: BLOOD SPECIMEN Ordering Facility: [facility] Address: [address] [place] [address] Result Comment: The [place] Diabetes Association (ADA) provides guidance for cutoff [...] Standards of Medical Care in Diabetes 2016, [place] [employer]. Diabetes Care. 2016.39(Suppl 1). Performed By: #### 2 532-0, 36207-2 #### [facility] CLIA [id number] [address] [place] [address] Potassium [Moles/Vol] 5.3 mmol/L High 3.7-5.1 [facility] Comment on above: Order Comment: Speci men Type: BLOOD SPECIMEN Ordering Facility: [facility] Address: [address] [place] [address] Performed By: #### 2 532-0, 98885-7 #### [facility] CLIA [id number] [address] [place] [address] Protein [Mass/Vol] 6.9 g/dL Normal 6.3-8.0 [facility] Comment on above: Order Comment: Speci men Type: BLOOD SPECIMEN Ordering Facility: [facility] Address: [address] [place] [address] Performed By: #### 2 532-0, 69812-5 #### [facility] CLIA [id number] [address] [place] [address] Sodium [Moles/Vol] 142 mmol/L Normal 136-144 [facility] Comment on above: Order Comment: Speci men Type: BLOOD SPECIMEN Ordering Facility: [facility] Address: [address] [place] [address] Performed By: #### 2 532-0, 05569-7 #### [facility] CLIA [id number] [address] [place] [address] Urea nitrogen [Mass/Vol] 36 mg/dL High 7-21 [facility] Comment on above: Order Comment: Speci men Type: BLOOD SPECIMEN Ordering Facility: [facility] Address: [address] [place] [address] Performed By: #### 2 532-0, 24293-1 #### [facility] CLIA [id number] [address] [place] [address] Eosinophils/100 WBC Auto (Bl d)on 05-26-2024 Eosinophils/100 WBC (Bld) Automated eosinophil % [facility] Erythrocyte distribution wid th Auto (RBC) [Ratio]on 05-26-2024 Erythrocyte distribution width (RBC) [Ratio] Erythrocyte distribution width [Ratio] by Automated count 11.-15.0 [facility] Hematocrit Auto (Bld) [Volum e fraction]on 05-26-2024 Hematocrit (Bld) [Volume fraction] Hematocrit [Volume Fraction] of Blood by Automated count 36.0-46.0 [facility] Hemoglobin [Mass/volume] in Bloodon 05-26-2024 Hemoglobin (Bld) [Mass/Vol] Hemoglobin [Mass/volume] in Blood 11.5-15.5 [facility] LACTATE DEHYDROGENASEon 05-14 LDH [Catalytic activity/Vol] 184 U/L 135 - 214 U/L [facility] LDH SerPl-cCncon 05-26-2024 LDH [Catalytic activity/Vol] 184 U/L Normal 135-214 [facility] Comment on above: Order Comment: Speci men Type: BLOOD SPECIMEN Ordering Facility: [facility] Address: [address] [place], [place] [id number] Performed By: #### 2 [id number], [id number] #### [facility] CLIA [id number] [address] [place] [id number] LDH [Catalytic activity/Vol] on 05-26-2024 Interpretation and review of laboratory results Normal [facility] - Chemistry and C hemistry - challengeon 05-26-2024 Albumin [Mass/Vol] 4.1 g/dL 3.9-4.9 [facility] ALP [Catalytic activity/Vol] 107 U/L 34-123 [facility] ALT [Catalytic activity/Vol] 21 U/L 7-38 [facility] AST [Catalytic activity/Vol] 23 U/L 13-35 [facility] Bilirubin [Mass/Vol] 0.2 mg/dL 0.2-1.3 [facility] Calcium [Mass/Vol] 9.3 mg/dL 8.5-10.2 [facility] Chloride [Moles/Vol] 105 mmol/L 98-107 [facility] CO2 [Moles/Vol] 26 mmol/L 22-30 [facility] Creatinine [Mass/Vol] 1.20 mg/dL High 0.58-0.96 [facility] Glucose [Mass/Vol] 231 mg/dL High 74-99 [facility] Comment on above: The [place] Diabete s Association (ADA) provides guidance for [...] Standards of Medical Care in Diabetes 2016, [place] Diabetes Association. Diabetes Care. 2016.39(Suppl 1). LDH [Catalytic activity/Vol] 184 U/L 135-214 [facility] Potassium [Moles/Vol] 5.3 mmol/L High 3.7-5.1 [facility] Sodium [Moles/Vol] 142 mmol/L 136-144 [facility] Urea nitrogen [Mass/Vol] 36 mg/dL High 7-21 [facility] Laboratory - Hematology and Cell countson 05-26-2024 Eosinophils (Bld) [#/Vol] 0.19 10*3/uL <0.46 [facility] Leukocytes [#/volume] correc andreina for nucleated erythrocytes in Blood by Automated counon 05-26-2024 WBC corrected for nucl RBC Auto (Bld) [#/Vol] Leukocytes [#/volume] corrected for nucleated erythrocytes in Blood by Automated coun High 3.70-11.00 [facility] Comment on above: No clot detected.Res ults checked and verified. Lymphocytes Auto (Bld) [#/Vo l]on 05-26-2024 Lymphocytes (Bld) [#/Vol] Lymphocytes [#/volume] in Blood by Automated count High 1.00-4.00 [facility] Lymphocytes/100 WBC Auto (Bl d)on 05-26-2024 Lymphocytes/100 WBC (Bld) Lymphocytes/100 leukocytes in Blood by Automated count [facility] MCH Auto (RBC) [Entitic mass ]on 05-26-2024 MCH (RBC) [Entitic mass] MCH [Entitic ma ss] by Automated count 26.0-34.0 [facility] MCHC Auto (RBC) [Mass/Vol]on 05-26-2024 MCHC (RBC) [Mass/Vol] MCHC [Mass/volume] by Automated count 30.5-36.0 [facility] MCV Auto (RBC) [Entitic vol] on 05-26-2024 MCV (RBC) [Entitic vol] MCV [Entitic vol ume] by Automated count 80.0-100.0 [facility] Monocytes Auto (Bld) [#/Vol] on 05-26-2024 Monocytes (Bld) [#/Vol] Automated blood monocyte count <0.87 [facility] Monocytes/100 WBC Auto (Bld) on 05-26-2024 Monocytes/100 WBC (Bld) Automated monocyte % [facility] Neutrophils Auto (Bld) [#/Vo l]on 05-26-2024 Neutrophils (Bld) [#/Vol] Neutrophils [#/volume] in Blood by Automated count 1.45-7.50 [facility] Neutrophils/100 WBC Auto (Bl d)on 05-26-2024 Neutrophils/100 WBC (Bld) Automated neutrophil % [facility] No Panel Informationon 05-26 Estimated GFR (CKD-EPI) 46 mL/min/1.73m??? Low >=60 [facility] Comment on above: [...] Reviewed: see resu lts of individual morphologies [facility] Nucleated RBC Auto (Bld) [#/ Vol]on 05-26-2024 Nucleated RBC (Bld) [#/Vol] Nucleated erythrocytes [#/volume] in Blood by Automated count <0.01 [facility] Nucleated erythrocytes [Pres ence] in Blood by Automated counton 05-26-2024 Nucleated RBC Auto Ql (Bld) Nucleated erythrocytes [Presence] in Blood by Automated count [facility] Ovalocyte detectionon 2023 Ovalocytes LM Ql (Bld) Ovalocyte detection [facility] Platelet adequacy [Presence] in Blood by Light microscopyon 05-26-2024 Platelets LM Ql (Bld) Platelet adequacy [Presence] in Blood by Light microscopy [facility] Platelet mean volume Auto (B ld) [Entitic vol]on 05-26-2024 Platelet mean volume (Bld) [Entitic vol] Platelet mean volume [Entitic volume] in Blood by Automated count 9.0-12.7 [facility] Platelets Auto (Bld) [#/Vol] on 05-26-2024 Platelets (Bld) [#/Vol] Platelets [#/vol ume] in Blood by Automated count 150-400 [facility] Polychromasia [Presence] in Blood by Light microscopyon 05-26-2024 Polychromasia LM Ql (Bld) Polychromasia [Presence] in Blood by Light microscopy [facility] Protein [Mass/volume] in Ser um or Plasmaon 05-26-2024 Protein [Mass/Vol] Protein [Mass/volume ] in Serum or Plasma 6.3-8.0 [facility] RBC Auto (Bld) [#/Vol]on RBC (Bld) [#/Vol] Erythrocytes [#/volume] in Blood by Automated count 3.90-5.20 [facility] Serum or plasma anion gap de terminationon 05-26-2024 Anion gap [Moles/Vol] Serum or plasma an ion gap determination 8-15 [facility] X-ray reportOrdered By: Teddy Arndt on 05-26-2024 Study report [place] [address] XRay Report Signed Patient: Kathy Washburn MR#: [id number] : 1940 Acct:[id number] Age/Sex: 83 / F ADM Date: 4 Loc: XD Room: Type: [facility] Attending Dr: Ayanna Vicente DO Copies to: Ayanna Vicente DO~ Ordering Provider: Ayanna Vicente DO Date of Service: 05/26/24 XR/XR hip LT min 2V(w/wo pelvis)*: M25.552 - Pain in left hip ([id number]) XR/XR knee LT 4V*: M25.552 - Pain [...] 4:55 PM Dictation Location: RAD[facility]--01 Transcribed By: [facility] 05/26/241654 Dictated By: Stanford Arndt DO 05/26/241652 Signed By: 05/26/241654 [facility] XR knee LT 4V*on 05-26-2024 XR knee LT 4V* [place] [address] XRay Report Signed Patient: Kathy Washburn MR#: [id number] : 1940 Acct:[id number] Age/Sex: 83 / F ADM Date: 05/26/24 Loc: XD Room: Type: [facility] Attending Dr: Ayanna Vicente DO Copies to: Ayanna Vicente DO Ordering Provider: Ayanna Vicente DO Date of Service: 05/26/24 XR/XR hip LT min 2V(w/wo pelvis)*: M25.552 - Pain in left hip ([id number]) XR/XR knee LT 4V*: M25.552 - Pain [...] Stanford Arndt M.D.05/26/2024 4:55 PM Dictation Location: [facility] Transcribed By: [facility] 05/26/241654 Dictated By: Stanford Arndt DO 05/26/241652 Signed By: 05/26/241654 Normal [facility] MM screening mammo BI w/CADo n 05-18-2024 MM screening mammo BI w/CAD [place] [address] Mammography Report Signed Patient: Kathy Washburn MR#: [id number] : 1940 Acct:[id number] Age/Sex: 83 / F ADM Date: 05/18/24 Loc: [place] Room: Type: [facility] Attending Dr: Ayanna Vicente DO Copies [...] Location: [facility] Transcribed By: [facility] 05/18/24 1523 Dictated By: Stanford Arndt DO 05/18/24 1459 Signed By: 05/18/24 1523 Normal [facility] CNOVon 05-17-2024 CNOV Office Visit (INEZ ) KATHY WASHBURN ([id number]) 1940 F Date Time Provider Department 05/17/24 1:00 PM ZOHAIB GERMAN During your visit today, we recorded the following information about you: Pulse Blood pressure Weight Height 62/minute 117/75 103.4 kg 1.727 m Zohaib German MD 05/17/2024 1:34 PM Signed [facility] Date of Service: 05/17/2024 Patient: Kathy Washburn Medical Record: [id number] Primary Care Physician: Ayanna Vicente DO Last Rheumatology visit: None at [facility] Referring Provider: No referring provider defined [...] Use Topics (more content not included)... Normal [facility] A1C with Estimated Average G sagrarion 05-06-2024 Glucose [Mass/Vol] 194 mg/dL Normal [facility] Comment on above: Result Comment: PERF ORMED BY: [facility] [address] [place] [address] PATHOLOGIST [employer] MATHIEU RASCON M.D. Performed By: #### L IPID, A1C [facility] eA, T4F, URMACRERAT, TSH3, CUU, CMP, ADDONUAPLUS, T3T ####[facility] [id number] Alanine aminotransferase [En zymatic activity/volume] in Serum or PlasmaOrdered By: Ayanna Vicente on 05-06-2024 ALT [Catalytic activity/Vol] 25 U/L Normal [facility] Comment on above: Performed By: #### L IPID, A1C WT eA, T4F, URMACRERAT, TSH3, CUU, CMP, ADDONUAPLUS, T3T #### [facility] [address] ALT [Catalytic activity/Vol] Alanine aminotransferase [Enzymatic activity/volume] in Serum or Plasma [facility] Albumin [Mass/volume] in Ser um or Plasma by Bromocresol green (BCG) dye binding methoOrdered By: Ayanna Vicente on 05-06-2024 Albumin BCG dye [Mass/Vol] 4.1 g/dL 3.5-5.7 [facility] Albumin BCG dye [Mass/Vol] Albumin [Mass/volume] in Serum or Plasma by Bromocresol green (BCG) dye binding metho 3.5-5.7 [facility] Alkaline phosphatase [Enzyma tic activity/volume] in Serum or PlasmaOrdered By: Ayanna Vicente on 05-06-2024 ALP [Catalytic activity/Vol] 89 U/L Normal 34-104 [facility] Comment on above: Performed By: #### L IPID, A1C WTH eA, T4F, URMACRERAT, TSH3, CUU, CMP, ADDONUAPLUS, T3T #### [facility] [address] [place] [id number] [place] ALP [Catalytic activity/Vol] Alkaline phosphatase [Enzymatic activity/volume] in Serum or Plasma 34-104 [facility] Appearance of UrineOrdered B y: Ayanna Vicente on 05-06-2024 Appearance (U) Urine appearance Clear [facility] Aspartate aminotransferase [ Enzymatic activity/volume] in Serum or PlasmaOrdered By: Ayanna Vicente on 05-06-2024 AST [Catalytic activity/Vol] 23 U/L Normal 1339 [facility] Comment on above: Performed By: #### L IPID, A1C WT eA, T4F, URMACRERAT, TSH3, CUU, CMP, ADDONUAPLUS, T3T #### [facility] [address] [place] [address] [place] AST [Catalytic activity/Vol] Aspartate aminotransferase [Enzymatic activity/volume] in Serum or Plasma 1339 [facility] Bacteria [Presence] in Urine sediment by Light microscopyOrdered By: Ayanna Vicente on 05-06-2024 Bacteria LM Ql (Urine sed) 4+ [HPF] High None Seen [facility] Bacteria LM Ql (Urine sed) Bacteria [Presence] in Urine sediment by Light microscopy High None Seen [facility] Bilirubin Test strip Ql (U)O rdered By: Ayanna Vicente on 05-06-2024 Bilirubin Ql (U) Negative Negative [facility] Bilirubin Ql (U) Bilirubin.total [Presence] in Urine by Test strip Negative [facility] Bilirubin.total [Mass/volume ] in Serum or PlasmaOrdered By: Ayanna Vicente on 05-06-2024 Bilirubin [Mass/Vol] 0.4 mg/dL Normal 0.3-1.0 [facility] Comment on above: Performed By: #### L IPID, A1C WTH eA, T4F, URMACRERAT, TSH3, CUU, CMP, ADDONUAPLUS, T3T #### [facility] [address] [place] [id number] [place] Bilirubin [Mass/Vol] Bilirubin.total [Mass/volume] in Serum or Plasma 0.3-1.0 [facility] Blood estimated average gluc ose determination by estimation from glycated hemoglobinOrdered By: Ayanna Vicente on 05-06-2024 Average glucose Estimated from glycated hemoglobin (Bld) [Mass/Vol] Glucose mean value [Mass/volume] in Blood Estimated from glycated hemoglobin [facility] Calcium [Mass/volume] in Ser um or PlasmaOrdered By: Ayanna Vicente on 05-06-2024 Calcium [Mass/Vol] 9.6 mg/dL Normal 8.6-10.3 [facility] Comment on above: Performed By: #### L IPID, A1C WTH eA, T4F, URMACRERAT, TSH3, CUU, CMP, ADDONUAPLUS, T3T #### [facility] [address] Calcium [Mass/Vol] Calcium [Mass/volume ] in Serum or Plasma 8.6-10.3 [facility] Carbon dioxide, total [Moles /volume] in Serum or PlasmaOrdered By: Ayanna Vicente on 05-06-2024 CO2 [Moles/Vol] 30.2 mmol/L Normal 21.0-31.0 [facility] Comment on above: Performed By: #### L IPID, A1C WTH eA, T4F, URMACRERAT, TSH3, CUU, CMP, ADDONUAPLUS, T3T #### [facility] [address] [place] [address] [place] CO2 [Moles/Vol] Carbon dioxide, tota l [Moles/volume] in Serum or Plasma 21.0-31.0 [facility] Chloride [Moles/volume] in S ebony or PlasmaOrdered By: Ayanna Vicente on 05-06-2024 Chloride [Moles/Vol] 105 mmol/L Normal 98-107 [facility] Comment on above: Performed By: #### L IPID, A1C WTH eA, T4F, URMACRERAT, TSH3, CUU, CMP, ADDONUAPLUS, T3T #### [facility] [address] [place] [id number] [place] Chloride [Moles/Vol] Chloride [Moles/volume] in Serum or Plasma 98-107 [facility] Cholesterol [Mass/volume] in Serum or PlasmaOrdered By: Ayanna Vicente on 05-06-2024 Cholesterol [Mass/Vol] 134 mg/dL Low 140-200 [facility] Comment on above: Chol less than 200 m g/dl low riskChol 201-239 mg/dl borderline riskChol 240 mg/dl and greater high risk Result Comment: Chol less than 200 mg/dl low risk Chol 201-239 mg/dl borderline risk Chol 240 mg/dl and greater high risk Performed By: #### L IPID, A1C WTH eA, T4F, URMACRERAT, TSH3, CUU, CMP, ADDONUAPLUS, T3T #### [address] Cholesterol [Mass/Vol] Cholesterol [Mass/volume] in Serum or Plasma Low 140-200 [facility] Comment on above: Chol less than 200 m g/dl low riskChol 201-239 mg/dl borderline riskChol 240 mg/dl and greater high risk Cholesterol in HDL [Mass/vol ume] in Serum or PlasmaOrdered By: Ayanna Vicente on 05-06-2024 Cholesterol in HDL [Mass/Vol] Serum or plasma high density lipoprotein (HDL) cholesterol measurement 23- [facility] Comment on above: HDL CHOL ATP-III CLA SSIFICATION Cardiovascular RiskHDL > or equal to 60 mg/dL LOWHDL < 40 mg/dL HIGH Cholesterol in LDL Calc [Mas s/Vol]Ordered By: Ayanna Vicente on 05-06-2024 Cholesterol in LDL [Mass/Vol] 46 mg/dL 0-100 [facility] Comment on above: LDL ATP III CLASSIFI CATIONLDL less than 100 mg/dL OptimalLDL 100-129 mg/dL Near or above optimalLDL 130-159 mg/dL Borderline highLDL 160-189 mg/dL HighLDL greater than 189 mg/dL Very high Cholesterol in LDL [Mass/Vol] Cholesterol in LDL [Mass/volume] in Serum or Plasma by calculation 0-100 [facility] Comment on above: LDL ATP III CLASSIFI CATIONLDL less than 100 mg/dL OptimalLDL 100-129 mg/dL Near or above optimalLDL 130-159 mg/dL Borderline highLDL 160-189 mg/dL HighLDL greater than 189 mg/dL Very high Cholesterol in VLDL Calc [Ma ss/Vol]Ordered By: Ayanna Vicente on 05-06-2024 Cholesterol in VLDL [Mass/Vol] 47 mg/dL [facility] Cholesterol in VLDL [Mass/Vol] Cholesterol in VLDL [Mass/volume] in Serum or Plasma by calculation [facility] Color Auto (U)Ordered By: Vasile Vicente on 05-06-2024 Color (U) Color of Urine by Auto Yellow [facility] Color of Urine by AutoOrdere d By: Ayanna Vicente on 05-06-2024 Color (U) Yellow Normal Yellow [facility] Comment on above: Order Comment: Name Collection Type:: Clean-Voided Midstream Performed By: #### L IPID, A1C WTH eA, T4F, URMACRERAT, TSH3, CUU, CMP, ADDONUAPLUS, T3T #### [facility] [address] Comprehensive Metabolic Pane curt 05-06-2024 Albumin [Mass/Vol] 4.1 g/dL Normal 3.5-5.7 [facility] Comment on above: Performed By: #### L IPID, A1C WTH eA, T4F, URMACRERAT, TSH3, CUU, CMP, ADDONUAPLUS, T3T #### [facility] [address] [place] [address] GFR/1.73 sq M.predicted MDRD (S/P/Bld) [Vol rate/Area] 51.605 mL/min/{1.73_m2} Normal [facility] Comment on above: Performed By: #### L IPID, A1C WTH eA, T4F, URMACRERAT, TSH3, CUU, CMP, ADDONUAPLUS, T3T #### [facility] [address] Creatinine [Mass/volume] in Serum or PlasmaOrdered By: Ayanna Vicente on 05-06-2024 Creatinine [Mass/Vol] 1.08 mg/dL Normal 0.60-1.20 [facility] Comment on above: Performed By: #### L IPID, A1C WTH eA, T4F, URMACRERAT, TSH3, CUU, CMP, ADDONUAPLUS, T3T #### [facility] [address] Creatinine [Mass/Vol] Creatinine [Mass/volume] in Serum or Plasma 0.60-1.20 [facility] Creatinine [Mass/volume] in UrineOrdered By: Ayanna Vicente on 05-06-2024 Creatinine (U) [Mass/Vol] 93.00 mg/dL [facility] Comment on above: No reference range e stablished Creatinine (U) [Mass/Vol] Creatinine [Mass/volume] in Urine [facility] Comment on above: No reference range e stablished Dipstick and Microscopicon 1 Bacteria,Urine 4+ High None Seen [facility] Comment on above: Order Comment: Name Collection Type:: Clean-Voided Midstream Performed By: #### L IPID, A1C WTH eA, T4F, URMACRERAT, TSH3, CUU, CMP, ADDONUAPLUS, T3T #### [facility] [address] [place] [id number] [place] Bilirubin,Urine Negative Normal Negative [facility] Comment on above: Order Comment: Name Collection Type:: Clean-Voided Midstream Performed By: #### L IPID, A1C WTH eA, T4F, URMACRERAT, TSH3, CUU, CMP, ADDONUAPLUS, T3T #### [facility] [address] [place] [address] [place] Glucose Ql (U) Normal Normal Normal [facility] Comment on above: Order Comment: Name Collection Type:: Clean-Voided Midstream Performed By: #### L IPID, A1C WTH eA, T4F, URMACRERAT, TSH3, CUU, CMP, ADDONUAPLUS, T3T #### [facility] [address] [place] [id number] [place] Hyaline Casts,Urine 5-9 High 0-1 [facility] Comment on above: Order Comment: Name Collection Type:: Clean-Voided Midstream Result Comment: PERF ORMED BY: [place] [address] PATHOLOGIST [employer] MATHIEU RASCON M.D. Performed By: #### L IPID, A1C WTH eA, T4F, URMACRERAT, TSH3, CUU, CMP, ADDONUAPLUS, T3T #### [place] [address] [place] Nitrite,Urine Negative Normal Negative [facility] Comment on above: Order Comment: Name Collection Type:: Clean-Voided Midstream Performed By: #### L IPID, A1C WTH eA, T4F, URMACRERAT, TSH3, CUU, CMP, ADDONUAPLUS, T3T #### [address] Occult Blood,Urine Negative Normal Negative [facility] Comment on above: Order Comment: Name Collection Type:: Clean-Voided Midstream Performed By: #### L IPID, A1C WTH eA, T4F, URMACRERAT, TSH3, CUU, CMP, ADDONUAPLUS, T3T #### [place] [address] [place] Protein,Urine Trace High Negative [facility] Comment on above: Order Comment: Name Collection Type:: Clean-Voided Midstream Performed By: #### L IPID, A1C WTH eA, T4F, URMACRERAT, TSH3, CUU, CMP, ADDONUAPLUS, T3T #### [place] [address] [place] RBC LM.HPF (Urine sed) [#/Area] 0 /[HPF] Normal 0-4 [facility] Comment on above: Order Comment: Name Collection Type:: Clean-Voided Midstream Performed By: #### L IPID, A1C WTH eA, T4F, URMACRERAT, TSH3, CUU, CMP, ADDONUAPLUS, T3T #### [address] Specificy [place],Urine 1.020 Normal 1.001-1.030 [facility] Comment on above: Order Comment: Name Collection Type:: Clean-Voided Midstream Performed By: #### L IPID, A1C WTH eA, T4F, URMACRERAT, TSH3, CUU, CMP, ADDONUAPLUS, T3T #### [facility] [address] Squamous Epithelial Cell,Urine 3-4 High 0-2 [facility] Comment on above: Order Comment: Name Collection Type:: Clean-Voided Midstream Performed By: #### L IPID, A1C WTH eA, T4F, URMACRERAT, TSH3, CUU, CMP, ADDONUAPLUS, T3T #### [address] Urobilinogen,Urine Normal Normal Normal [facility] Comment on above: Order Comment: Name Collection Type:: Clean-Voided Midstream Performed By: #### L IPID, A1C WTH eA, T4F, URMACRERAT, TSH3, CUU, CMP, ADDONUAPLUS, T3T #### [address] WBC,Urine 10-19 High 0-4 [facility] Comment on above: Order Comment: Name Collection Type:: Clean-Voided Midstream Performed By: #### L IPID, A1C WTH eA, T4F, URMACRERAT, TSH3, CUU, CMP, ADDONUAPLUS, T3T #### [address] Epithelial cells.squamous [# /area] in Urine sediment by Microscopy high power fieldOrdered By: Ayanna Vicente on 05-06-2024 Epithelial cells.squamous LM.HPF (Urine sed) [#/Area] 3-4 [HPF] High 0-2 [facility] Epithelial cells.squamous LM.HPF (Urine sed) [#/Area] Epithelial cells.squamous [#/area] in Urine sediment by Microscopy high power field High 0-2 [facility] Erythrocytes [#/area] in Uri ne sediment by Microscopy high power fieldOrdered By: Ayanna Vicente on 05-06-2024 RBC LM.HPF (Urine sed) [#/Area] 0-1 [HPF] 0-4 [facility] RBC LM.HPF (Urine sed) [#/Area] Erythrocytes [#/area] in Urine sediment by Microscopy high power field 0-4 [facility] Globulin Calc (S) [Mass/Vol] Ordered By: Ayanna Vicente on 05-06-2024 Globulin (S) [Mass/Vol] Serum globulin measurement by calculation (mass/volume) [facility] Glucose [Mass/volume] in Ser um or PlasmaOrdered By: Ayanna Vicente on 05-06-2024 Glucose [Mass/Vol] 129 mg/dL High 70-100 [facility] Comment on above: ADA recommended refe rence rangeRandom Glucose Reference Range is dependent on time and content of last meal. Glucose of more than 200 mg/dL in a nonstressed, ambulatory subject supports the diagnosis of Diabetes Mellitus. Result Comment: [place] om Glucose Reference Range is dependent on time and content of last meal. Glucose of more than 200 mg/dL in a nonstressed, ambulatory subject supports the diagnosis of Diabetes Mellitus. ADA recommended reference range Performed By: #### L IPID, A1C WTH eA, T4F, URMACRERAT, TSH3, CUU, CMP, ADDONUAPLUS, T3T #### [address] Glucose [Mass/Vol] Glucose [Mass/volume ] in Serum or Plasma High 70-100 [facility] Comment on above: ADA recommended refe rence rangeRandom Glucose Reference Range is dependent on time and content of last meal. Glucose of more than 200 mg/dL in a nonstressed, ambulatory subject supports the diagnosis of Diabetes Mellitus. Glucose [Mass/volume] in Uri ne by Test stripOrdered By: Ayanna Vicente on 05-06-2024 Glucose Test strip (U) [Mass/Vol] Normal mg/dL Normal [facility] Glucose Test strip (U) [Mass/Vol] Glucose [Mass/volume] in Urine by Test strip Normal [facility] Glucose mean value [Mass/vol ume] in Blood Estimated from glycated hemoglobinOrdered By: Ayanna Vicente on 05-06-2024 Average glucose Estimated from glycated hemoglobin (Bld) [Mass/Vol] 194 mg/dL [facility] Hemoglobin A1c percentageOrd ered By: Ayanna Vicente on 05-06-2024 HbA1c (Bld) [Mass fraction] 8.4 % High 4.3-5.6 [facility] Comment on above: Increased risk for d iabetes: 5.7 - 6.4diabetes: >6.4glycemic control for adults with diabetes: <7.0 Result Comment: Incr eased risk for diabetes: 5.7 - 6.4 diabetes: >6.4 glycemic control for adults with diabetes: <7.0 Performed By: #### L IPID, A1C WTH eA, T4F, URMACRERAT, TSH3, CUU, CMP, ADDONUAPLUS, T3T ####[facility] [id number] [place] [address] [facility] Hemoglobin A1c/Hemoglobin.to dayna in BloodOrdered By: Ayanna Vicente on 05-06-2024 HbA1c (Bld) [Mass fraction] Hemoglobin A1c percentage High 4.3-5.6 [facility] Comment on above: Increased risk for d iabetes: 5.7 - 6.4diabetes: >6.4glycemic control for adults with diabetes: <7.0 Hemoglobin Test strip Ql (U) Ordered By: Ayanna Vicente on 05-06-2024 Hemoglobin Ql (U) Negative Negative [facility] Hemoglobin Ql (U) Hemoglobin [Presence ] in Urine by Test strip Negative [facility] Hyaline casts LM.LPF (Urine sed) [#/Area]Ordered By: Ayanna Vicente on 05-06-2024 Hyaline casts (Urine sed) [#/Area] 5-9 [LPF] High 0-1 [facility] Hyaline casts (Urine sed) [#/Area] Hyaline casts [#/area] in Urine sediment by Microscopy low power field High 0-1 [facility] Ketones Test strip Ql (U)Ord ered By: Ayanna Vicente on 05-06-2024 Ketones Ql (U) Ketones [Presence] i n Urine by Test strip Negative [facility] Ketones [Presence] in Urine by Test stripOrdered By: Ayanna Vicente on 05-06-2024 Ketones Ql (U) Negative Normal Negative [facility] Comment on above: Order Comment: Name Collection Type:: Clean-Voided Midstream Performed By: #### L IPID, A1C WTH eA, T4F, URMACRERAT, TSH3, CUU, CMP, ADDONUAPLUS, T3T #### [facility] [address] Laboratory - Microbiology an d Antimicrobial susceptibilityOrdered By: Ayanna Vicente on 05-06-2024 Bacteria identified Cx Nom (U) Klebsiella variicola Abnormal [facility] Bacteria identified Cx Nom (U) Klebsiella variicola Abnormal [facility] Leukocyte esterase [Presence ] in Urine by Test stripOrdered By: Ayanna Vicente on 05-06-2024 Leukocyte esterase Test strip Ql (U) 2+ High Negative [facility] Comment on above: Order Comment: Name Collection Type:: Clean-Voided Midstream Performed By: #### L IPID, A1C WTH eA, T4F, URMACRERAT, TSH3, CUU, CMP, ADDONUAPLUS, T3T #### [facility] [address] Leukocyte esterase Test strip Ql (U) Leukocyte esterase [Presence] in Urine by Test strip High Negative [facility] Leukocytes [#/area] in Urine sediment by Microscopy high power fieldOrdered By: Ayanna Vicente on 05-06-2024 WBC LM.HPF (Urine sed) [#/Area] 10-19 [HPF] High 0-4 [facility] WBC LM.HPF (Urine sed) [#/Area] Leukocytes [#/area] in Urine sediment by Microscopy high power field High 0-4 [facility] Lipid Panelon 05-06-2024 LDL Cholesterol,Calculated 46 mg/dL Normal 0-100 [facility] Comment on above: Result Comment: LDL ATP III CLASSIFICATION LDL less than 100 mg/dL Optimal LDL 100-129 mg/dL Near or above optimal LDL 130-159 mg/dL Borderline high LDL 160-189 mg/dL High LDL greater than 189 mg/dL Very high Performed By: #### L IPID, A1C WTH eA, T4F, URMACRERAT, TSH3, CUU, CMP, ADDONUAPLUS, T3T #### [address] Triglyceride w/Reflex 235 mg/dL High 0-149 [facility] Comment on above: [...] URMACRERAT, TSH3, CUU, CMP, ADDONUAPLUS, T3T #### [address] VLDL CHOLESTEROL 47 mg/dL Normal [facility] Comment on above: Performed By: #### L IPID, A1C WTH eA, T4F, URMACRERAT, TSH3, CUU, CMP, ADDONUAPLUS, T3T #### [address] MicroAlb Creat Ratio,Uon Creatinine, Urine (Random) 93.00 mg/dL Normal [facility] Comment on above: Result Comment: No r eference range established Performed By: #### L IPID, A1C WTH eA, T4F, URMACRERAT, TSH3, CUU, CMP, ADDONUAPLUS, T3T #### [address] Microalbumin/Creatinine Ratio 17.2 mg/g Normal 0.0-30.0 [facility] Comment on above: Result Comment: 30-3 00 mg/g indicates an increased risk for diabetic nephropathy. Greater than 300 mg/g is consistent with clinical nephropathy. (Am. J. Kidney Disease 1995, 25:107) PERFORMED BY: [place] [address] PATHOLOGIST [employer] MATHIEU RASCON M.D. Performed By: #### L IPID, A1C WTH eA, T4F, URMACRERAT, TSH3, CUU, CMP, ADDONUAPLUS, T3T #### [facility] [address] Microalbumin [Mass/volume] i n UrineOrdered By: Ayanna Vicente on 05-06-2024 Albumin DL <= 20 mg/L (U) [Mass/Vol] 1.6 mg/dL Normal 0.0-1.8 [facility] Comment on above: Performed By: #### L IPID, A1C WT eA, T4F, URMACRERAT, TSH3, CUU, CMP, ADDONUAPLUS, T3T #### [facility] [address] [place] [id number] [facility] Albumin DL <= 20 mg/L (U) [Mass/Vol] Microalbumin [Mass/volume] in Urine 0.0-1.8 [facility] Nitrite Test strip Ql (U)Ord ered By: Ayanna Vicente on 05-06-2024 Nitrite Ql (U) Negative Negative [facility] Nitrite Ql (U) Nitrite [Presence] i n Urine by Test strip Negative [facility] No Panel InformationOrdered By: Ayanna Vicente on 05-06-2024 Estimated GFR (CKD-EPI) 51.605 mL/Min [facility] Creatinine Clearance (Chem N/A [facility] Potassium [Moles/volume] in Serum or PlasmaOrdered By: Ayanna Vicente on 05-06-2024 Potassium [Moles/Vol] 5.1 mmol/L Normal 3.5-5.1 [facility] Comment on above: Performed By: #### L IPID, A1C [facility] eA, T4F, URMACRERAT, TSH3, CUU, CMP, ADDONUAPLUS, T3T #### [facility] [address] Potassium [Moles/Vol] Potassium [Moles/volume] in Serum or Plasma 3.5-5.1 [facility] Protein Test strip (U) [Mass /Vol]Ordered By: Ayanna Vicente on 05-06-2024 Protein (U) [Mass/Vol] Trace mg/dL High Negative [facility] Protein (U) [Mass/Vol] Protein [Mass/vol ume] in Urine by Test strip High Negative [facility] Protein [Mass/volume] in Ser um or PlasmaOrdered By: Ayanna Vicente on 05-06-2024 Protein [Mass/Vol] 6.8 g/dL Normal 6.4-8.9 [facility] Comment on above: Performed By: #### L IPID, A1C WTH eA, T4F, URMACRERAT, TSH3, CUU, CMP, ADDONUAPLUS, T3T #### [facility] [address] Protein [Mass/Vol] Protein [Mass/volume ] in Serum or Plasma 6.4-8.9 [facility] Serum globulin measurement b y calculation (mass/volume)Ordered By: Ayanna Vicente on 05-06-2024 Globulin (S) [Mass/Vol] 2.7 g/dL Normal [facility] Comment on above: Performed By: #### L IPID, A1C WTH eA, T4F, URMACRERAT, TSH3, CUU, CMP, ADDONUAPLUS, T3T #### [facility] [address] [place] [address] Serum or plasma albumin/glob ulin mass ratioOrdered By: Ayanna Vicente on 05-06-2024 Albumin/Globulin [Mass ratio] 1.5 {ratio} Normal [facility] Comment on above: Performed By: #### L IPID, A1C WTH eA, T4F, URMACRERAT, TSH3, CUU, CMP, ADDONUAPLUS, T3T #### [facility] [address] [place] [address] Albumin/Globulin [Mass ratio] Serum or plasma albumin/globulin mass ratio [facility] Serum or plasma anion gap de terminationOrdered By: Ayanna Vicente on 05-06-2024 Anion gap [Moles/Vol] 10.9 mmol/L Normal 6.0-15.0 [facility] Comment on above: Performed By: #### L IPID, A1C WTH eA, T4F, URMACRERAT, TSH3, CUU, CMP, ADDONUAPLUS, T3T #### [facility] [address] [place] [address] Anion gap [Moles/Vol] Serum or plasma an ion gap determination 6.0-15.0 [facility] Serum or plasma high density lipoprotein (HDL) cholesterol measurementOrdered By: Ayanna Vicente on 05-06-2024 Cholesterol in HDL [Mass/Vol] 41 mg/dL Normal 23-92 [facility] Comment on above: HDL CHOL ATP-III CLA SSIFICATION Cardiovascular RiskHDL > or equal to 60 mg/dL LOWHDL < 40 mg/dL HIGH Result Comment: HDL CHOL ATP-III CLASSIFICATION Cardiovascular Risk HDL > or equal to 60 mg/dL LOW HDL < 40 mg/dL HIGH Performed By: #### L IPID, A1C WTH eA, T4F, URMACRERAT, TSH3, CUU, CMP, ADDONUAPLUS, T3T #### [facility] [address] Serum or plasma total choles terol/high density lipoprotein (HDL) cholesterol mass ratOrdered By: Ayanna Vicente on 05-06-2024 Cholesterol.total/Choles terol in HDL [Mass ratio] 3.3 {ratio} Normal <5.0 [facility] Comment on above: Performed By: #### L IPID, A1C WTH eA, T4F, URMACRERAT, TSH3, CUU, CMP, ADDONUAPLUS, T3T #### [facility] [address] [place] [id number] [facility] Cholesterol.total/Choles terol in HDL [Mass ratio] Serum or plasma total cholesterol/high density lipoprotein (HDL) cholesterol mass rat <5.0 [facility] Sodium [Moles/volume] in Ser um or PlasmaOrdered By: Ayanna Vicente on 05-06-2024 Sodium [Moles/Vol] 141 mmol/L Normal 136-145 [facility] Comment on above: Performed By: #### L IPID, A1C WTH eA, T4F, URMACRERAT, TSH3, CUU, CMP, ADDONUAPLUS, T3T #### [facility] [address] [place] [id number] [facility] Sodium [Moles/Vol] Sodium [Moles/volume ] in Serum or Plasma 136-145 [facility] Specific gravity Test strip (U) [Rel density]Ordered By: Ayanna Vicente on 05-06-2024 Specific gravity (U) [Rel density] 1.020 1.001-1.030 [facility] Specific gravity (U) [Rel density] Specific gravity of Urine by Test strip 1.001-1.030 [facility] Thyrotropin [Units/volume] i n Serum or PlasmaOrdered By: Ayanna Vicente on 05-06-2024 TSH Qn 1.93 m[IU]/L Normal 0.45-5.33 [facility] Comment on above: Result Comment: PERF ORMED BY: [facility] [address] [place] [address] PATHOLOGIST [employer] MATHIEU RASCON M.D. Performed By: #### L IPID, A1C WT eA, T4F, URMACRERAT, TSH3, CUU, CMP, ADDONUAPLUS, T3T ####[place] [address] [place] [id number] [facility] TSH Qn Thyrotropin [Units/volume] in Serum or Plasma 0.45-5.33 [facility] Thyroxine (T4) free [Mass/vo lume] in Serum or PlasmaOrdered By: Ayanna Vicente on 05-06-2024 Free T4 [Mass/Vol] 0.94 ng/dL Normal 0.61-1.12 [facility] Comment on above: Performed By: #### L IPID, A1C WTH eA, T4F, URMACRERAT, TSH3, CUU, CMP, ADDONUAPLUS, T3T ####[place] [address] [place] [id number] [facility] Free T4 [Mass/Vol] Thyroxine (T4) free [Mass/volume] in Serum or Plasma 0.61-1.12 [facility] Triglyceride [Mass/volume] i n Serum or PlasmaOrdered By: Ayanna Vicente on 05-06-2024 Triglyceride [Mass/Vol] 235 mg/dL High 0-149 [facility] Comment on above: TRIG ATP III CLASSIF ICATIONTRIG less than 150 mg/dL NormalTRIG 150-199 mg/dL Borderline highTRIG 200-500 mg/dL High TRIG greater than 500 mg/dL Very highStandard traceable to the Center for Disease Conrtrol and Prevention (CDC) test method. Triglyceride [Mass/Vol] Triglyceride [Mass/volume] in Serum or Plasma High 0-149 [facility] Comment on above: TRIG ATP III CLASSIF ICATIONTRIG less than 150 mg/dL NormalTRIG 150-199 mg/dL Borderline highTRIG 200-500 mg/dL High TRIG greater than 500 mg/dL Very highStandard traceable to the Center for Disease Conrtrol and Prevention (CDC) test method. Triiodothyronine (T3) Totalo n 05-06-2024 Triiodothyronine (T3) Total 0.89 ng/mL Normal 0.87-1.78 [facility] Comment on above: Performed By: #### L IPID, A1C WT eA, T4F, URMACRERAT, TSH3, CUU, CMP, ADDONUAPLUS, T3T ####[facility] [id number] Triiodothyronine (T3) [Mass/ volume] in Serum or PlasmaOrdered By: Ayanna Vicente on 05-06-2024 T3 [Mass/Vol] 0.89 ng/mL 0.87-1.78 [facility] T3 [Mass/Vol] Triiodothyronine (T3 ) [Mass/volume] in Serum or Plasma 0.87-1.78 [facility] Urea nitrogen [Mass/volume] in Serum or PlasmaOrdered By: Ayanna Vicente on 05-06-2024 Urea nitrogen [Mass/Vol] 29 mg/dL High 02-04 [facility] Comment on above: Performed By: #### L IPID, A1C WTH eA, T4F, URMACRERAT, TSH3, CUU, CMP, ADDONUAPLUS, T3T #### [facility] [address] Urea nitrogen [Mass/Vol] Urea nitrogen [Mass/volume] in Serum or Plasma High 02-04 [facility] Urine Cultureon 05-06-2024 Bacteria identified Cx Nom (U) ORGANISM: Klebsiella variicola (O:KLEVAR) [place] Count >100,000 Aerobic CORNELIA Charge ([id number]) ---- [...] RESISTANT TO ALL B-LACTAM DRUGS. PERFORMED BY: [facility] [address] [place] [address] PATHOLOGIST [employer] MATHIEU RASCON M.D. Normal [facility] Comment on above: Performed By: #### L IPID, A1C [facility] eA, T4F, URMACRERAT, TSH3, CUU, CMP, ADDONUAPLUS, T3T ####[facility] [id number] Urine appearanceOrdered By: Ayanna Vicente on 05-06-2024 Appearance (U) Clear Normal Clear [facility] Comment on above: Order Comment: Name Collection Type:: Clean-Voided Midstream Performed By: #### L IPID, A1C WT eA, T4F, URMACRERAT, TSH3, CUU, CMP, ADDONUAPLUS, T3T #### [facility] [address] [place] [id number] [facility] Urine cultureOrdered By: Aftab Vicente on 05-06-2024 Bacteria identified Cx Nom (U) Abnormal [facility] Urine microalbumin/creatinin e mass ratioOrdered By: Ayanna Vicente on 05-06-2024 Albumin/Creatinine DL <= 20 mg/L (U) [Mass ratio] 17.2 mg/g 0.0-30.0 [facility] Comment on above: 30-300 mg/g indicate s an increased risk for diabetic nephropathy. Greater than 300 mg/g is consistent with clinical nephropathy. (Am. J. Kidney Disease 1995, 25:107) Albumin/Creatinine DL <= 20 mg/L (U) [Mass ratio] Urine microalbumin/creatini ne mass ratio 0.0-30.0 [facility] Comment on above: 30-300 mg/g indicate s an increased risk for diabetic nephropathy. Greater than 300 mg/g is consistent with clinical nephropathy. (Am. J. Kidney Disease 1995, 25:107) Urobilinogen Test strip (U) [Mass/Vol]Ordered By: Ayanna Vicente on 05-06-2024 Urobilinogen (U) [Mass/Vol] Normal mg/dL Normal [facility] Urobilinogen (U) [Mass/Vol] Urobilinogen [Mass/volume] in Urine by Test strip Normal [facility] pH Test strip (U)Ordered By: Ayanna Vicente on 05-06-2024 pH (U) pH of Urine by Test strip 5.0-9.0 [facility] pH of Urine by Test stripOrd ered By: Ayanna Vicente on 05-06-2024 pH (U) 5.5 [pH] Normal 5.0-9.0 [facility] Comment on above: Order Comment: Name Collection Type:: Clean-Voided Midstream Performed By: #### L IPID, A1C WTH eA, T4F, URMACRERAT, TSH3, CUU, CMP, ADDONUAPLUS, T3T #### [facility] [address] [place] [id number] [facility] Ambulatory Visit Summaryon 0 02-24-2024 Ambulatory [...] mos (no labs) Where: [address] [place] [phone] Medications What How Much When Why Instructions [...] social activities (more content not included)... Normal [facility] Urology Office/Clinic Noteon 02-24-2024 Urology Office/Clinic Note [...] (N32.81: Overactive bladder) S/p Botox 100u 08/30/21. -Mal[place] sxs only improved for a few weeks [...] Contact Information JAX BECKMAN, SUSAN Miller, [address] [place] [address] [phone] Additional Instructions: 6 mos (no labs) Patient [...] mg Tab, (more content not included)... Normal [facility] Comment on above: Result Comment: Elec tronically Signed By: SUSAN RANDOLPH PA-C\.br\Date and Time Signed: 02/24/24 10:53 EDT\.br\Electronically Co-Signed By: Sarah Ospina\.br\Date and Time Co-Signed: 02/24/24 10:44 EDT\.br\Electronically Co-Signed By: Sarah Ospina.br\Date and Time Co-Signed: 02/24/24 10:47 EDT Laboratory - Chemistry and C hemistry - challengeon 02-04-2024 Bilirubin Ql (U) Negative NEGATIVE [facility] Glucose (U) [Mass/Vol] Negative NEGATIVE [facility] Ketones Ql (U) Negative NEGATIVE [facility] pH (U) 6.0 [pH] 5.0-9.0 [facility] Specific gravity (U) [Rel density] >=1.030 Abnormal 1.005-1.025 [facility] Urobilinogen Qn (U) 0.2 {Jose'U}/dL 0.2-1.0 [facility] Laboratory - Specimen inform ationon 02-04-2024 Appearance (U) CLEAR CLEAR [facility] Color (U) YELLOW YELLOW [facility] Laboratory - Urinalysison Leukocyte esterase Test strip Ql (U) TRACE Abnormal NEGATIVE [facility] Mucus Ql (Urine sed) TRACE Abnormal NONE SEEN [facility] Nitrite Ql (U) Negative NEGATIVE [facility] Protein Ql (U) TRACE mg/dL NEG/TRACE [facility] No Panel Informationon 02-03 Miscellaneous Test Comment See comment [facility] Comment on above: Specimen Source: UCC - Urine,Clean Catch - Urine CC - 200.100 Urine Bacteria TRACE #/HPF Abnormal NONE SEEN [facility] Urine Occult Blood Negative NEGATIVE [facility] Urine Other Casts NONE SEEN #/LPF NONE SEEN [facility] Urine Other Crystals None Seen #/HPF None Seen [facility] Urine RBC 0-2 #/HPF 0-2 [facility] Urine Squamous Epithelial Cells RARE #/LPF NONE/RARE [facility] Urine WBC 2-5 #/HPF Abnormal NONE SEEN [facility] Urine culture routineon 01-12 Bacteria identified Cx Nom (U) [facility] Alanine aminotransferase [En zymatic activity/volume] in Serum or PlasmaOrdered By: Ayanna Vicente on 10-17-2023 ALT [Catalytic activity/Vol] 28 U/L 7-52 [facility] Albumin [Mass/volume] in Ser um or Plasma by Bromocresol green (BCG) dye binding methoOrdered By: Ayanna Vicente on 10-17-2023 Albumin BCG dye [Mass/Vol] 4.1 g/dL 3.5-5.7 [facility] Alkaline phosphatase [Enzyma tic activity/volume] in Serum or PlasmaOrdered By: Ayanna Vicente on 10-17-2023 ALP [Catalytic activity/Vol] 93 U/L 34-104 [facility] Anisocytosis LM Ql (Bld)Orde red By: Ayanna Vicente on 10-17-2023 Anisocytosis Ql (Bld) Slight Fir [facility] Aspartate aminotransferase [ Enzymatic activity/volume] in Serum or PlasmaOrdered By: Ayanna Vicente on 10-17-2023 AST [Catalytic activity/Vol] 30 U/L 13-39 [facility] Automated erythrocytes count in urine sediment (number/area)Ordered By: Ayanna Vicente on 10-17-2023 RBC Auto (Urine sed) [#/Area] 1-2 [HPF] 0-4 [facility] Automated leukocytes count i n urine sediment (number/area)Ordered By: Ayanna Vicente on 10-17-2023 WBC Auto (Urine sed) [#/Area] 10-19 [HPF] High 0-4 [facility] Basophils Auto (Bld) [#/Vol] Ordered By: Ayanna Vicente on 10-17-2023 Basophils (Bld) [#/Vol] N/A [facility] Basophils/100 WBC Auto (Bld) Ordered By: Ayanna Vicente on 10-17-2023 Basophils/100 WBC (Bld) N/A [facility] Bilirubin Test strip Ql (U)O rdered By: Ayanna Vicente on 10-17-2023 Bilirubin Ql (U) Negative Negative [facility] Bilirubin.total [Mass/volume ] in Serum or PlasmaOrdered By: Ayanna Vicente on 10-17-2023 Bilirubin [Mass/Vol] 0.4 mg/dL 0.3-1.0 [facility] Calcium [Mass/volume] in Ser um or PlasmaOrdered By: Ayanna Vicente on 10-17-2023 Calcium [Mass/Vol] 9.7 mg/dL 8.6-10.3 [facility] Carbon dioxide, total [Moles /volume] in Serum or PlasmaOrdered By: Ayanna Vicente on 10-17-2023 CO2 [Moles/Vol] 30.9 mmol/L 21.0-31.0 [facility] Chloride [Moles/volume] in S ebony or PlasmaOrdered By: Ayanna Vicente on 10-17-2023 Chloride [Moles/Vol] 105 mmol/L 98-107 [facility] Cholesterol [Mass/volume] in Serum or PlasmaOrdered By: Ayanna Vicente on 10-17-2023 Cholesterol [Mass/Vol] 131 mg/dL Low 140-200 [facility] Comment on above: Chol less than 200 m g/dl low riskChol 201-239 mg/dl borderline riskChol 240 mg/dl and greater high risk Cholesterol in LDL Calc [Mas s/Vol]Ordered By: Ayanna Vicente on 10-17-2023 Cholesterol in LDL [Mass/Vol] 30 mg/dL 0-100 [facility] Comment on above: LDL ATP III CLASSIFI CATIONLDL less than 100 mg/dL OptimalLDL 100-129 mg/dL Near or above optimalLDL 130-159 mg/dL Borderline highLDL 160-189 mg/dL HighLDL greater than 189 mg/dL Very high Cholesterol in VLDL Calc [Ma ss/Vol]Ordered By: Ayanna Vicente on 10-17-2023 Cholesterol in VLDL [Mass/Vol] 60 mg/dL [facility] Color Auto (U)Ordered By: Vasile Vicente on 10-17-2023 Color (U) Yellow Yellow [facility] Creatinine [Mass/volume] in Serum or PlasmaOrdered By: Ayanna Vicente on 10-17-2023 Creatinine [Mass/Vol] 1.15 mg/dL 0.60-1.20 [facility] Eosinophils Auto (Bld) [#/Vo l]Ordered By: Ayanna Vicente on 10-17-2023 Eosinophils (Bld) [#/Vol] N/A [facility] Eosinophils/100 WBC Auto (Bl d)Ordered By: Ayanna Vicente on 10-17-2023 Eosinophils/100 WBC (Bld) N/A [facility] Eosinophils/100 WBC Manual c nt (Bld)Ordered By: Ayanna Vicente on 10-17-2023 Eosinophils/100 WBC (Bld) 2 % 1-3 [facility] Erythrocyte distribution wid th Auto (RBC) [Ratio]Ordered By: Ayanna Vicente on 10-17-2023 Erythrocyte distribution width (RBC) [Ratio] 15.2 % 11.9-15.3 [facility] Globulin Calc (S) [Mass/Vol] Ordered By: Ayanna Vicente on 10-17-2023 Globulin (S) [Mass/Vol] 2.6 g/dL [facility] Glucose [Mass/volume] in Ser um or PlasmaOrdered By: Ayanna Vicente on 10-17-2023 Glucose [Mass/Vol] 162 mg/dL High 70-100 [facility] Comment on above: ADA recommended [...] from glycated hemoglobin (Bld) [Mass/Vol] 197 mg/dL [facility] Hematocrit Auto (Bld) [Volum e fraction]Ordered By: Ayanna Vicente on 10-17-2023 Hematocrit (Bld) [Volume fraction] 38.8 % 34.0-46.4 [facility] Hemoglobin A1c percentageOrd ered By: Ayanna Vicente on 10-17-2023 HbA1c (Bld) [Mass fraction] 8.5 % High 4.3-5.6 [facility] Comment on above: Increased risk for d iabetes: 5.7 - 6.4diabetes: >6.4glycemic control for adults with diabetes: <7.0 Hemoglobin [Mass/volume] in BloodOrdered By: Ayanna Vicente on 10-17-2023 Hemoglobin (Bld) [Mass/Vol] 12.2 g/dL 11.8-15.4 [facility] Ketones Auto test strip (U) [Mass/Vol]Ordered By: Ayanna Vicente on 10-17-2023 Ketones (U) [Mass/Vol] Negative Negative [facility] Laboratory - UrinalysisOrder ed By: Ayanna Vicente on 10-17-2023 Hyaline casts LM Ql (Urine sed) None seen [LPF] 0-8 [facility] Leukocytes [#/volume] correc andreina for nucleated erythrocytes in Blood by Automated counOrdered By: Ayanna Vicente on 10-17-2023 WBC corrected for nucl RBC Auto (Bld) [#/Vol] 15.9 10*3/uL High 3.8-11.6 [facility] Lymphocytes Auto (Bld) [#/Vo l]Ordered By: Ayanna Vicente on 10-17-2023 Lymphocytes (Bld) [#/Vol] N/A [facility] Lymphocytes/100 WBC Auto (Bl d)Ordered By: Ayanna Vicente on 10-17-2023 Lymphocytes/100 WBC (Bld) N/A [facility] Lymphocytes/100 WBC Manual c nt (Bld)Ordered By: Ayanna Vicente on 10-17-2023 Lymphocytes/100 WBC (Bld) 51 % High 18-42 [facility] MCH Auto (RBC) [Entitic mass ]Ordered By: Ayanna Vicente on 10-17-2023 MCH (RBC) [Entitic mass] 28.0 pg 24.7-34.3 [facility] MCHC Auto (RBC) [Mass/Vol]Or dered By: Ayanna Vicente on 10-17-2023 MCHC (RBC) [Mass/Vol] 31.5 g/dL Low 32.0-35.0 [facility] MCV Auto (RBC) [Entitic vol] Ordered By: Ayanna Vicente on 10-17-2023 MCV (RBC) [Entitic vol] 89.0 fL 80-100 [facility] Microalbumin [Mass/volume] i n UrineOrdered By: Ayanna Vicente on 10-17-2023 Albumin DL <= 20 mg/L (U) [Mass/Vol] 1.9 mg/dL High 0.0-1.8 [facility] Microcytes LM Ql (Bld)Ordere d By: Ayanna Vicente on 10-17-2023 Microcytes Ql (Bld) Slight [facility] Monocytes Auto (Bld) [#/Vol] Ordered By: Ayanna Vicente on 10-17-2023 Monocytes (Bld) [#/Vol] N/A [facility] Monocytes/100 WBC Auto (Bld) Ordered By: Ayanna Vicente on 10-17-2023 Monocytes/100 WBC (Bld) N/A [facility] Monocytes/100 WBC Manual cnt (Bld)Ordered By: Ayanna Vicente on 10-17-2023 Monocytes/100 WBC (Bld) 8 % 2-11 [facility] Myelocytes/100 WBC Manual cn t (Bld)Ordered By: Ayanna Vicente on 10-17-2023 Myelocytes/100 WBC (Bld) 1 % High 0-0 [facility] Neutrophils Auto (Bld) [#/Vo l]Ordered By: Ayanna Vicente on 10-17-2023 Neutrophils (Bld) [#/Vol] N/A [facility] Neutrophils/100 WBC Auto (Bl d)Ordered By: Ayanna Vicente on 10-17-2023 Neutrophils/100 WBC (Bld) N/A [facility] Nitrite Test strip Ql (U)Ord ered By: Ayanna Vicente on 10-17-2023 Nitrite Ql (U) Positive High Negative [facility] No Panel InformationOrdered By: Ayanna Vicente on 10-17-2023 Estimated GFR (CKD-EPI) 47.859 mL/Min [facility] Creatinine Clearance (Chem N/A [facility] Nucleated erythrocytes [Pres ence] in Blood by Automated countOrdered By: Ayanna Vicente on 10-17-2023 Nucleated RBC Auto Ql (Bld) N/A [facility] Platelet adequacy [Presence] in Blood by Light microscopyOrdered By: Ayanna Vicente on 10-17-2023 Platelets LM Ql (Bld) Normal Normal [facility] Platelet mean volume Auto (B ld) [Entitic vol]Ordered By: Ayanna Vicente on 10-17-2023 Platelet mean volume (Bld) [Entitic vol] 9.2 fL 6.3-10.7 [facility] Platelet morphology finding [Identifier] in BloodOrdered By: Ayanna Vicente on 10-17-2023 Platelet morphology finding Nom (Bld) Normal Normal [facility] Platelets Auto (Bld) [#/Vol] Ordered By: Ayanna Vicente on 10-17-2023 Platelets (Bld) [#/Vol] 231 10*3/uL 150-450 [facility] Poikilocytosis [Presence] in Blood by Light microscopyOrdered By: Ayanna Vicente on 10-17-2023 Poikilocytosis LM Ql (Bld) Slight [facility] Potassium [Moles/volume] in Serum or PlasmaOrdered By: Ayanna Vicente on 10-17-2023 Potassium [Moles/Vol] 5.1 mmol/L 3.5-5.1 [facility] Protein Auto test strip (U) [Mass/Vol]Ordered By: Ayanna Vicente on 10-17-2023 Protein (U) [Mass/Vol] Trace mg/dL High Negative [facility] Protein [Mass/volume] in Ser um or PlasmaOrdered By: Ayanna Vicente on 10-17-2023 Protein [Mass/Vol] 6.7 g/dL 6.4-8.9 [facility] RBC Auto (Bld) [#/Vol]Ordere d By: Ayanna Vicente on 10-17-2023 RBC (Bld) [#/Vol] 4.36 10*6/uL 3.60-5.00 [facility] RBC morphologyOrdered By: Vasile Vicente on 10-17-2023 RBC morphology finding Nom (Bld) N/A [facility] Segmented neutrophils/100 WB C Manual cnt (Bld)Ordered By: Ayanna Vicente on 10-17-2023 Segmented neutrophils/100 WBC (Bld) 33 % Low 50-70 [facility] Serum or plasma albumin/glob ulin mass ratioOrdered By: Ayanna Vicente on 10-17-2023 Albumin/Globulin [Mass ratio] 1.6 {ratio} [facility] Serum or plasma anion gap de terminationOrdered By: Ayanna Vicente on 10-17-2023 Anion gap [Moles/Vol] 8.2 mmol/L 6.0-15.0 [facility] Serum or plasma high density lipoprotein (HDL) cholesterol measurementOrdered By: Ayanna Vicente on 10-17-2023 Cholesterol in HDL [Mass/Vol] 40 mg/dL 23-92 [facility] Comment on above: HDL CHOL ATP-III CLA SSIFICATION Cardiovascular RiskHDL > or equal to 60 mg/dL LOWHDL < 40 mg/dL HIGH Serum or plasma total choles terol/high density lipoprotein (HDL) cholesterol mass ratOrdered By: Ayanna Vicente on 10-17-2023 Cholesterol.total/Choles terol in HDL [Mass ratio] 3.3 {ratio} <5.0 [facility] Sodium [Moles/volume] in Ser um or PlasmaOrdered By: Ayanna Vicente on 10-17-2023 Sodium [Moles/Vol] 139 mmol/L 136-145 [facility] Specific gravity Auto test s trip (U) [Rel density]Ordered By: Ayanna Vicente on 10-17-2023 Specific gravity (U) [Rel density] 1.018 1.001-1.030 [facility] Squamous epithelial cells de tection in urine sediment by light microscopyOrdered By: Ayanna Vicente on 10-17-2023 Epithelial cells.squamous LM Ql (Urine sed) 0-1 [HPF] 0-2 [facility] Thyrotropin [Units/volume] i n Serum or PlasmaOrdered By: Ayanna Vicente on 10-17-2023 TSH Qn 1.46 m[IU]/L 0.45-5.33 [facility] Thyroxine (T4) free [Mass/vo lume] in Serum or PlasmaOrdered By: Ayanna Vicente on 10-17-2023 Free T4 [Mass/Vol] 1.02 ng/dL 0.61-1.12 [facility] Triglyceride [Mass/volume] i n Serum or PlasmaOrdered By: Ayanna Vicente on 10-17-2023 Triglyceride [Mass/Vol] 303 mg/dL High 0-149 [facility] Comment on above: TRIG ATP III CLASSIF ICATIONTRIG less than 150 mg/dL NormalTRIG 150-199 mg/dL Borderline highTRIG 200-500 mg/dL High TRIG greater than 500 mg/dL Very highStandard traceable to the Center for Disease Conrtrol and Prevention (CDC) test method. Triiodothyronine (T3) Free [ Mass/volume] in Serum or PlasmaOrdered By: Ayanna Vicente on 10-17-2023 Free T3 [Mass/Vol] 3.22 pg/mL 2.50-3.90 [facility] Urea nitrogen [Mass/volume] in Serum or PlasmaOrdered By: Ayanna Vicente on 10-17-2023 Urea nitrogen [Mass/Vol] 30 mg/dL High 7-25 [facility] Urine bacteria detection by automated methodOrdered By: Ayanna Vicente on 10-17-2023 Bacteria Auto Ql (U) 4+ High None Seen [facility] Urine clarity by refractomet ry automatedOrdered By: Ayanna Vicente on 10-17-2023 Clarity Refractometry automated (U) Clear Clear [facility] Urine culture routineOrdered By: Ayanna Vicente on 10-17-2023 Bacteria identified Cx Nom (U) Escherichia coli (MDRO) Abnormal [facility] Urine glucose measurement by automated test strip (mass/volume)Ordered By: Ayanna Vicente on 10-17-2023 Glucose Auto test strip (U) [Mass/Vol] Normal mg/dL Normal [facility] Urine hemoglobin detection b y automated test stripOrdered By: Ayanna Vicente on 10-17-2023 Hemoglobin Auto test strip Ql (U) Negative Negative [facility] Urine leukocyte esterase det ection by automated test stripOrdered By: Ayanna Vicente on 10-17-2023 Leukocyte esterase Auto test strip Ql (U) 2+ High Negative [facility] Urobilinogen Auto test strip (U) [Mass/Vol]Ordered By: Ayanna Vicente on 10-17-2023 Urobilinogen (U) [Mass/Vol] Normal mg/dL Normal [facility] Variant lymphocytes/100 WBC Manual cnt (Bld)Ordered By: Ayanna Vicente on 10-17-2023 Variant lymphocytes/100 WBC (Bld) 6 % 0-12 [facility] WBC Auto (Bld) [#/Vol]Ordere d By: Ayanna Vicente on 10-17-2023 WBC (Bld) [#/Vol] 15.9 10*3/uL High 3.8-11.6 [facility] pH Auto test strip (U)Ordere d By: Ayanna Vicente on 10-17-2023 pH (U) 5.5 [pH] 5.0-9.0 [facility] Alanine aminotransferase [En zymatic activity/volume] in Serum or PlasmaOrdered By: Ayanna Vicente on 04-09-2023 ALT [Catalytic activity/Vol] 25 U/L 7-52 [facility] Albumin [Mass/volume] in Ser um or Plasma by Bromocresol green (BCG) dye binding methoOrdered By: Ayanna Vicente on 04-09-2023 Albumin BCG dye [Mass/Vol] 4.2 g/dL 3.5-5.7 [facility] Alkaline phosphatase [Enzyma tic activity/volume] in Serum or PlasmaOrdered By: Ayanna Vicente on 04-09-2023 ALP [Catalytic activity/Vol] 95 U/L 34-104 [facility] Anisocytosis LM Ql (Bld)Orde red By: Ayanna Vicente on 04-09-2023 Anisocytosis Ql (Bld) Slight [facility] Aspartate aminotransferase [ Enzymatic activity/volume] in Serum or PlasmaOrdered By: Ayanna Vicente on 04-09-2023 AST [Catalytic activity/Vol] 21 U/L 13-39 [facility] Basophils Auto (Bld) [#/Vol] Ordered By: Ayanna Vicente on 04-09-2023 Basophils (Bld) [#/Vol] N/A [facility] Basophils/100 WBC Auto (Bld) Ordered By: Ayanna Vicente on 04-09-2023 Basophils/100 WBC (Bld) N/A [facility] Bilirubin.total [Mass/volume ] in Serum or PlasmaOrdered By: Ayanna Vicente on 04-09-2023 Bilirubin [Mass/Vol] 0.4 mg/dL 0.3-1.0 [facility] Calcium [Mass/volume] in Ser um or PlasmaOrdered By: Ayanna Vicente on 04-09-2023 Calcium [Mass/Vol] 9.9 mg/dL 8.6-10.3 [facility] Carbon dioxide, total [Moles /volume] in Serum or PlasmaOrdered By: Ayanna Vicente on 04-09-2023 CO2 [Moles/Vol] 31.5 mmol/L 21.0-31.0 [facility] Chloride [Moles/volume] in S ebony or PlasmaOrdered By: Ayanna Vicente on 04-09-2023 Chloride [Moles/Vol] 103 mmol/L 98-107 [facility] Cholesterol [Mass/volume] in Serum or PlasmaOrdered By: Ayanna Vicente on 04-09-2023 Cholesterol [Mass/Vol] 139 mg/dL 140-200 [facility] Comment on above: Chol less than 200 m g/dl low riskChol 201-239 mg/dl borderline riskChol 240 mg/dl and greater high risk Cholesterol in LDL Calc [Mas s/Vol]Ordered By: Ayanna Vicente on 04-09-2023 Cholesterol in LDL [Mass/Vol] 27 mg/dL 0-100 [facility] Comment on above: LDL ATP III CLASSIFI CATIONLDL less than 100 mg/dL OptimalLDL 100-129 mg/dL Near or above optimalLDL 130-159 mg/dL Borderline highLDL 160-189 mg/dL HighLDL greater than 189 mg/dL Very high Cholesterol in VLDL Calc [Ma ss/Vol]Ordered By: Ayanna Vicente on 04-09-2023 Cholesterol in VLDL [Mass/Vol] 69 mg/dL [facility] Creatinine [Mass/volume] in Serum or PlasmaOrdered By: Ayanna Vicente on 04-09-2023 Creatinine [Mass/Vol] 1.06 mg/dL 0.60-1.20 [facility] Eosinophils Auto (Bld) [#/Vo l]Ordered By: Ayanna Vicente on 04-09-2023 Eosinophils (Bld) [#/Vol] N/A [facility] Eosinophils/100 WBC Auto (Bl d)Ordered By: Ayanna Vicente on 04-09-2023 Eosinophils/100 WBC (Bld) N/A [facility] Eosinophils/100 WBC Manual c nt (Bld)Ordered By: Ayanna Vicente on 04-09-2023 Eosinophils/100 WBC (Bld) 5 % 1-3 [facility] Erythrocyte distribution wid th Auto (RBC) [Ratio]Ordered By: Ayanna Vicente on 04-09-2023 Erythrocyte distribution width (RBC) [Ratio] 15.1 % 11.9-15.3 [facility] Globulin Calc (S) [Mass/Vol] Ordered By: Ayanna Vicente on 04-09-2023 Globulin (S) [Mass/Vol] 2.4 g/dL [facility] Glucose [Mass/volume] in Ser um or PlasmaOrdered By: Ayanna Vicente on 04-09-2023 Glucose [Mass/Vol] 154 mg/dL 70-100 [facility] Comment on above: ADA recommended [...] from glycated hemoglobin (Bld) [Mass/Vol] 200 mg/dL [facility] Hematocrit Auto (Bld) [Volum e fraction]Ordered By: Ayanna Vicente on 04-09-2023 Hematocrit (Bld) [Volume fraction] 37.2 % 34.0-46.4 [facility] Hemoglobin A1c percentageOrd ered By: Ayanna Vicente on 04-09-2023 HbA1c (Bld) [Mass fraction] 8.6 % 4.3-5.6 [facility] Comment on above: Increased risk for d iabetes: 5.7 - 6.4diabetes: >6.4glycemic control for adults with diabetes: <7.0 Hemoglobin [Mass/volume] in BloodOrdered By: Ayanna Vicente on 04-09-2023 Hemoglobin (Bld) [Mass/Vol] 12.2 g/dL 11.8-15.4 [facility] Leukocytes [#/volume] correc andreina for nucleated erythrocytes in Blood by Automated counOrdered By: Ayanna Vicente on 04-09-2023 WBC corrected for nucl RBC Auto (Bld) [#/Vol] 15.3 10*3/uL 3.8-11.6 [facility] Lymphocytes Auto (Bld) [#/Vo l]Ordered By: Ayanna Vicente on 04-09-2023 Lymphocytes (Bld) [#/Vol] N/A [facility] Lymphocytes/100 WBC Auto (Bl d)Ordered By: Ayanna Vicente on 04-09-2023 Lymphocytes/100 WBC (Bld) N/A [facility] Lymphocytes/100 WBC Manual c nt (Bld)Ordered By: Ayanna Vicente on 04-09-2023 Lymphocytes/100 WBC (Bld) 59 % 18-42 [facility] MCH Auto (RBC) [Entitic mass ]Ordered By: Ayanna Vicente on 04-09-2023 MCH (RBC) [Entitic mass] 29.1 pg 24.7-34.3 [facility] MCHC Auto (RBC) [Mass/Vol]Or dered By: Ayanna Vicente on 04-09-2023 MCHC (RBC) [Mass/Vol] 32.9 g/dL 32.0-35.0 [facility] MCV Auto (RBC) [Entitic vol] Ordered By: Ayanna Vicente on 04-09-2023 MCV (RBC) [Entitic vol] 88.5 fL 80-100 [facility] Monocytes Auto (Bld) [#/Vol] Ordered By: Ayanna Vicente on 04-09-2023 Monocytes (Bld) [#/Vol] N/A [facility] Monocytes/100 WBC Auto (Bld) Ordered By: Ayanna Vicente on 04-09-2023 Monocytes/100 WBC (Bld) N/A [facility] Monocytes/100 WBC Manual cnt (Bld)Ordered By: Ayanna Vicente on 04-09-2023 Monocytes/100 WBC (Bld) 7 % 2-11 [facility] Myelocytes/100 WBC Manual cn t (Bld)Ordered By: Ayanna Vicente on 04-09-2023 Myelocytes/100 WBC (Bld) 1 % 0-0 [facility] Neutrophils Auto (Bld) [#/Vo l]Ordered By: Ayanna Vicente on 04-09-2023 Neutrophils (Bld) [#/Vol] N/A [facility] Neutrophils/100 WBC Auto (Bl d)Ordered By: Ayanna Vicente on 04-09-2023 Neutrophils/100 WBC (Bld) N/A [facility] No Panel InformationOrdered By: Ayanna Vicente on 04-09-2023 Estimated GFR (CKD-EPI) 53.106 mL/Min [facility] Creatinine Clearance (Chem N/A [facility] Nucleated erythrocytes [Pres ence] in Blood by Automated countOrdered By: Ayanna Vicente on 04-09-2023 Nucleated RBC Auto Ql (Bld) N/A [facility] Ovalocyte detectionOrdered B y: Ayanna Vicente on 04-09-2023 Ovalocytes LM Ql (Bld) [facility] Platelet adequacy [Presence] in Blood by Light microscopyOrdered By: Ayanna Vicente on 04-09-2023 Platelets LM Ql (Bld) Normal Normal [facility] Platelet mean volume Auto (B ld) [Entitic vol]Ordered By: Ayanna Vicente on 04-09-2023 Platelet mean volume (Bld) [Entitic vol] 9.5 fL 6.3-10.7 [facility] Platelet morphology finding [Identifier] in BloodOrdered By: Ayanna Vicente on 04-09-2023 Platelet morphology finding Nom (Bld) Normal Normal [facility] Platelets Auto (Bld) [#/Vol] Ordered By: Ayanna Vicente on 04-09-2023 Platelets (Bld) [#/Vol] 211 10*3/uL 150-450 [facility] Potassium [Moles/volume] in Serum or PlasmaOrdered By: Ayanna Vicente on 04-09-2023 Potassium [Moles/Vol] 5.0 mmol/L 3.5-5.1 [facility] Protein [Mass/volume] in Ser um or PlasmaOrdered By: Ayanna Vicente on 04-09-2023 Protein [Mass/Vol] 6.6 g/dL 6.4-8.9 [facility] RBC Auto (Bld) [#/Vol]Ordere d By: Ayanna Vicente on 04-09-2023 RBC (Bld) [#/Vol] 4.20 10*6/uL 3.60-5.00 [facility] RBC morphologyOrdered By: Vasile Vicente on 04-09-2023 RBC morphology finding Nom (Bld) N/A [facility] Segmented neutrophils/100 WB C Manual cnt (Bld)Ordered By: Ayanna Vicente on 04-09-2023 Segmented neutrophils/100 WBC (Bld) 27 % 50-70 [facility] Serum or plasma albumin/glob ulin mass ratioOrdered By: Ayanna Vicente on 04-09-2023 Albumin/Globulin [Mass ratio] 1.8 {ratio} [facility] Serum or plasma anion gap de terminationOrdered By: Ayanna Vicente on 04-09-2023 Anion gap [Moles/Vol] 10.5 mmol/L 6.0-15.0 [facility] Serum or plasma high density lipoprotein (HDL) cholesterol measurementOrdered By: Ayanna Vicente on 04-09-2023 Cholesterol in HDL [Mass/Vol] 42 mg/dL 23-92 [facility] Comment on above: HDL CHOL ATP-III CLA SSIFICATION Cardiovascular RiskHDL > or equal to 60 mg/dL LOWHDL < 40 mg/dL HIGH Serum or plasma total choles terol/high density lipoprotein (HDL) cholesterol mass ratOrdered By: Ayanna Vicente on 04-09-2023 Cholesterol.total/Choles terol in HDL [Mass ratio] 3.3 {ratio} <5.0 [facility] Sodium [Moles/volume] in Ser um or PlasmaOrdered By: Ayanna Vicente on 04-09-2023 Sodium [Moles/Vol] 140 mmol/L 136-145 [facility] Thyrotropin [Units/volume] i n Serum or PlasmaOrdered By: Ayanna Vicente on 04-09-2023 TSH Qn 1.62 m[IU]/L 0.45-5.33 [facility] Thyroxine (T4) free [Mass/vo lume] in Serum or PlasmaOrdered By: Ayanna Vicente on 04-09-2023 Free T4 [Mass/Vol] 0.78 ng/dL 0.61-1.12 [facility] Triglyceride [Mass/volume] i n Serum or PlasmaOrdered By: Ayanna Vicente on 04-09-2023 Triglyceride [Mass/Vol] 349 mg/dL 0-149 [facility] Comment on above: TRIG ATP III CLASSIF ICATIONTRIG less than 150 mg/dL NormalTRIG 150-199 mg/dL Borderline highTRIG 200-500 mg/dL High TRIG greater than 500 mg/dL Very highStandard traceable to the Center for Disease Conrtrol and Prevention (CDC) test method. Triiodothyronine (T3) Free [ Mass/volume] in Serum or PlasmaOrdered By: Ayanna Vicente on 04-09-2023 Free T3 [Mass/Vol] 2.71 pg/mL 2.50-3.90 [facility] Urea nitrogen [Mass/volume] in Serum or PlasmaOrdered By: Ayanna Vicente on 04-09-2023 Urea nitrogen [Mass/Vol] 28 mg/dL 7- [facility] Variant lymphocytes/100 WBC Manual cnt (Bld)Ordered By: Ayanna Vicente on 04-09-2023 Variant lymphocytes/100 WBC (Bld) 1 % 0-12 [facility] WBC Auto (Bld) [#/Vol]Ordere d By: Ayanna Vicente on 04-09-2023 WBC (Bld) [#/Vol] 15.3 10*3/uL 3.8-11.6 [facility] Alanine aminotransferase [En zymatic activity/volume] in Serum or PlasmaOrdered By: yAanna Vicente on 09-30-2022 ALT [Catalytic activity/Vol] 25 U/L 7-52 [facility] Albumin [Mass/volume] in Ser um or Plasma by Bromocresol green (BCG) dye binding methoOrdered By: Ayanna Vicente on 09-30-2022 Albumin BCG dye [Mass/Vol] 4.3 g/dL 3.5-5.7 [facility] Alkaline phosphatase [Enzyma tic activity/volume] in Serum or PlasmaOrdered By: Ayanna Vicente on 09-30-2022 ALP [Catalytic activity/Vol] 97 U/L 34-104 [facility] Anisocytosis LM Ql (Bld)Orde red By: Ayanna Vicente on 09-30-2022 Anisocytosis Ql (Bld) Slight [facility] Aspartate aminotransferase [ Enzymatic activity/volume] in Serum or PlasmaOrdered By: Ayanna Vicente on 09-30-2022 AST [Catalytic activity/Vol] 22 U/L 13-39 [facility] Basophils Auto (Bld) [#/Vol] Ordered By: Ayanna Vicente on 09-30-2022 Basophils (Bld) [#/Vol] 0.0 10*3/uL 0.0-0.2 [facility] Basophils/100 WBC Auto (Bld) Ordered By: Ayanna Vicente on 09-30-2022 Basophils/100 WBC (Bld) 0.3 % . [facility] Bilirubin.total [Mass/volume ] in Serum or PlasmaOrdered By: Ayanna Vicente on 09-30-2022 Bilirubin [Mass/Vol] 0.3 mg/dL 0.3-1.0 [facility] Calcium [Mass/volume] in Ser um or PlasmaOrdered By: Ayanna Vicente on 09-30-2022 Calcium [Mass/Vol] 9.3 mg/dL 8.6-10.3 [facility] Carbon dioxide, total [Moles /volume] in Serum or PlasmaOrdered By: Ayanna Vicente on 09-30-2022 CO2 [Moles/Vol] 30.4 mmol/L 21.0-31.0 [facility] Chloride [Moles/volume] in S ebony or PlasmaOrdered By: Ayanna Vicente on 09-30-2022 Chloride [Moles/Vol] 104 mmol/L 98-107 [facility] Cholesterol [Mass/volume] in Serum or PlasmaOrdered By: Ayanna Vicente on 09-30-2022 Cholesterol [Mass/Vol] 117 mg/dL 140-200 [facility] Comment on above: Chol less than 200 m g/dl low riskChol 201-239 mg/dl borderline riskChol 240 mg/dl and greater high risk Cholesterol in LDL Calc [Mas s/Vol]Ordered By: Ayanna Vicente on 09-30-2022 Cholesterol in LDL [Mass/Vol] 35 mg/dL 0-100 [facility] Comment on above: LDL ATP III CLASSIFI CATIONLDL less than 100 mg/dL OptimalLDL 100-129 mg/dL Near or above optimalLDL 130-159 mg/dL Borderline highLDL 160-189 mg/dL HighLDL greater than 189 mg/dL Very high Cholesterol in VLDL Calc [Ma ss/Vol]Ordered By: Ayanna Vicente on 09-30-2022 Cholesterol in VLDL [Mass/Vol] 43 mg/dL [facility] Creatinine [Mass/volume] in Serum or PlasmaOrdered By: Ayanna Vicente on 09-30-2022 Creatinine [Mass/Vol] 1.25 mg/dL 0.60-1.20 [facility] Eosinophils Auto (Bld) [#/Vo l]Ordered By: Ayanna Vicente on 09-30-2022 Eosinophils (Bld) [#/Vol] 0.3 10*3/uL 0.0-0.45 [facility] Eosinophils/100 WBC Auto (Bl d)Ordered By: Ayanna Vicenet on 09-30-2022 Eosinophils/100 WBC (Bld) 2.3 % . [facility] Erythrocyte distribution wid th Auto (RBC) [Ratio]Ordered By: Ayanna Vicente on 09-30-2022 Erythrocyte distribution width (RBC) [Ratio] 15.4 % 11.9-15.3 [facility] Globulin Calc (S) [Mass/Vol] Ordered By: Ayanna Vicente on 09-30-2022 Globulin (S) [Mass/Vol] 2.4 g/dL [facility] Glucose [Mass/volume] in Ser um or PlasmaOrdered By: Ayanna Vicente on 09-30-2022 Glucose [Mass/Vol] 135 mg/dL 74-109 [facility] Comment on above: ADA recommended [...] from glycated hemoglobin (Bld) [Mass/Vol] 203 mg/dL [facility] Hematocrit Auto (Bld) [Volum e fraction]Ordered By: Ayanna Vicente on 09-30-2022 Hematocrit (Bld) [Volume fraction] 37.0 % 34.0-46.4 [facility] Hemoglobin A1c percentageOrd ered By: Ayanna Vicente on 09-30-2022 HbA1c (Bld) [Mass fraction] 8.7 % 4.3-5.6 [facility] Comment on above: Increased risk for d iabetes: 5.7 - 6.4diabetes: >6.4glycemic control for adults with diabetes: <7.0 Hemoglobin [Mass/volume] in BloodOrdered By: Ayanna Vicente on 09-30-2022 Hemoglobin (Bld) [Mass/Vol] 12.1 g/dL 11.8-15.4 [facility] Laboratory - Chemistry and C hemistry - challengeOrdered By: Ayanna Vicente on 09-30-2022 GFR/1.73 sq M.predicted MDRD (S/P/Bld) [Vol rate/Area] 43.572 mL/min/{1.73_m2} [facility] Leukocytes [#/volume] correc andreina for nucleated erythrocytes in Blood by Automated counOrdered By: Ayanna Vicente on 09-30-2022 WBC corrected for nucl RBC Auto (Bld) [#/Vol] 15.2 10*3/uL 3.8-11.6 [facility] Lymphocytes Auto (Bld) [#/Vo l]Ordered By: Ayanna Vicente on 09-30-2022 Lymphocytes (Bld) [#/Vol] 10.5 10*3/uL 1.00-4.8 [facility] Lymphocytes/100 WBC Auto (Bl d)Ordered By: Ayanna Vicente on 09-30-2022 Lymphocytes/100 WBC (Bld) 69.4 % . [facility] MCH Auto (RBC) [Entitic mass ]Ordered By: Ayanna Vicente on 09-30-2022 MCH (RBC) [Entitic mass] 28.4 pg 24.7-34.3 [facility] MCHC Auto (RBC) [Mass/Vol]Or dered By: Ayanna Vicente on 09-30-2022 MCHC (RBC) [Mass/Vol] 32.7 g/dL 32.0-35.0 [facility] MCV Auto (RBC) [Entitic vol] Ordered By: Ayanna Vicente on 09-30-2022 MCV (RBC) [Entitic vol] 86.9 fL 80-100 [facility] Microalbumin [Mass/volume] i n UrineOrdered By: Ayanna Vicente on 09-30-2022 Albumin DL <= 20 mg/L (U) [Mass/Vol] 1.9 mg/dL 0.0-1.8 [facility] Monocytes Auto (Bld) [#/Vol] Ordered By: Ayanna Vicente on 09-30-2022 Monocytes (Bld) [#/Vol] 0.7 10*3/uL 0.0-0.8 [facility] Monocytes/100 WBC Auto (Bld) Ordered By: Ayanna Vicente on 09-30-2022 Monocytes/100 WBC (Bld) 4.5 % . [facility] Neutrophils Auto (Bld) [#/Vo l]Ordered By: Ayanna Vicente on 09-30-2022 Neutrophils (Bld) [#/Vol] 3.6 10*3/uL 1.8-7.7 [facility] Neutrophils/100 WBC Auto (Bl d)Ordered By: Ayanna Vicente on 09-30-2022 Neutrophils/100 WBC (Bld) 23.5 % . [facility] No Panel InformationOrdered By: Ayanna Vicente on 09-30-2022 Pharmacy Creatinine Clearance (Chem N/A [facility] Nucleated erythrocytes [Pres ence] in Blood by Automated countOrdered By: Ayanna Vicente on 09-30-2022 Nucleated RBC Auto Ql (Bld) 0.6 /100{WBC} 0-0.5 [facility] Ovalocyte detectionOrdered B y: Ayanna Vicente on 09-30-2022 Ovalocytes LM Ql (Bld) Slight [facility] Platelet adequacy [Presence] in Blood by Light microscopyOrdered By: Ayanna Vicente on 09-30-2022 Platelets LM Ql (Bld) Normal Normal [facility] Platelet mean volume Auto (B ld) [Entitic vol]Ordered By: Ayanna Vicente on 09-30-2022 Platelet mean volume (Bld) [Entitic vol] 8.9 fL 6.3-10.7 [facility] Platelet morphology finding [Identifier] in BloodOrdered By: Ayanna Vicente on 09-30-2022 Platelet morphology finding Nom (Bld) Normal Normal [facility] Platelets Auto (Bld) [#/Vol] Ordered By: Ayanna Vicente on 09-30-2022 Platelets (Bld) [#/Vol] 230 10*3/uL 150-450 [facility] Poikilocytosis [Presence] in Blood by Light microscopyOrdered By: Ayanna Vicente on 09-30-2022 Poikilocytosis LM Ql (Bld) Slight [facility] Potassium [Moles/volume] in Serum or PlasmaOrdered By: Ayanna Vicente on 09-30-2022 Potassium [Moles/Vol] 4.5 mmol/L 3.5-5.1 [facility] Protein [Mass/volume] in Ser um or PlasmaOrdered By: Ayanna Vicente on 09-30-2022 Protein [Mass/Vol] 6.7 g/dL 6.4-8.9 [facility] RBC Auto (Bld) [#/Vol]Ordere d By: Ayanna Vicente on 09-30-2022 RBC (Bld) [#/Vol] 4.26 10*6/uL 3.60-5.00 [facility] RBC morphologyOrdered By: Vasile angelaaurora Vicente on 09-30-2022 RBC morphology finding Nom (Bld) N/A [facility] Serum or plasma albumin/glob ulin mass ratioOrdered By: Ayanna Vicente on 09-30-2022 Albumin/Globulin [Mass ratio] 1.8 {ratio} [facility] Serum or plasma anion gap de terminationOrdered By: Ayanna Vicente on 09-30-2022 Anion gap [Moles/Vol] 12.1 mmol/L 6.0-15.0 [facility] Serum or plasma high density lipoprotein (HDL) cholesterol measurementOrdered By: Ayanna Vicente on 09-30-2022 Cholesterol in HDL [Mass/Vol] 39 mg/dL 35-85 [facility] Comment on above: HDL CHOL ATP-III CLA SSIFICATION Cardiovascular RiskHDL > or equal to 60 mg/dL LOWHDL < 40 mg/dL HIGH Serum or plasma total choles terol/high density lipoprotein (HDL) cholesterol mass ratOrdered By: Ayanna Vicente on 09-30-2022 Cholesterol.total/Choles terol in HDL [Mass ratio] 3.0 {ratio} <5.0 [facility] Sodium [Moles/volume] in Ser um or PlasmaOrdered By: Ayanna Vicente on 09-30-2022 Sodium [Moles/Vol] 142 mmol/L 136-145 [facility] Thyrotropin [Units/volume] i n Serum or PlasmaOrdered By: Ayanna Vicente on 09-30-2022 TSH Qn 2.04 m[IU]/L 0.45-5.33 [facility] Thyroxine (T4) free [Mass/vo lume] in Serum or PlasmaOrdered By: Ayanna Vicente on 09-30-2022 Free T4 [Mass/Vol] 0.86 ng/dL 0.61-1.12 [facility] Triglyceride [Mass/volume] i n Serum or PlasmaOrdered By: Ayanna Vicente on 09-30-2022 Triglyceride [Mass/Vol] 216 mg/dL 0-149 [facility] Comment on above: TRIG ATP III CLASSIF ICATIONTRIG less than 150 mg/dL NormalTRIG 150-199 mg/dL Borderline highTRIG 200-500 mg/dL High TRIG greater than 500 mg/dL Very highStandard traceable to the Center for Disease Conrtrol and Prevention (CDC) test method. Triiodothyronine (T3) Free [ Mass/volume] in Serum or PlasmaOrdered By: Ayanna Vicente on 09-30-2022 Free T3 [Mass/Vol] 3.13 pg/mL 2.50-3.90 [facility] Urea nitrogen [Mass/volume] in Serum or PlasmaOrdered By: Ayanna Vicente on 09-30-2022 Urea nitrogen [Mass/Vol] 33 mg/dL 7-25 [facility] WBC Auto (Bld) [#/Vol]Ordere d By: Ayanna Vicente on 09-30-2022 WBC (Bld) [#/Vol] 15.2 10*3/uL 3.8-11.6 [facility] No Panel InformationOrdered By: Ayanna Vicente on 04-23-2022 25-Hydroxy Vitamin D Total 49.9 ng/mL 30-100 [facility] Comment on above: VITAMIN D STATUS 25( [place])VITAMIN D RANGE (ng/mL) Deficient <20 Insufficient 20 to <30Sufficient 30 to 100Reference: Nile MF,Joon NC, Chon ROD, et al. Evaluation,treatment, and prevention of vitamin D deficiency; an Endocrine Society clinical practice guideline. JCEM. 2010; 96(7):1911-30. LD LACTATE DEHYDROon 022 LDH [Catalytic activity/Vol] 202 U/L 135 - 214 U/L [facility] Albumin [Mass/volume] in Ser um or PlasmaOrdered By: Ayanna Vicente on 04-01-2022 Albumin [Mass/Vol] 3.5 g/dL 3.2-5.5 [facility] Basophils Auto (Bld) [#/Vol] Ordered By: Ayanna Vicente on 04-01-2022 Basophils (Bld) [#/Vol] N/A [facility] Basophils/100 WBC Auto (Bld) Ordered By: Ayanna Vicente on 04-01-2022 Basophils/100 WBC (Bld) N/A [facility] Blood anisocytosis detection Ordered By: Ayanna Vicente on 04-01-2022 Anisocytosis Ql (Bld) Slight [facility] Blood hemoglobin measurement (mass/volume)Ordered By: Ayanna Vicente on 04-01-2022 Hemoglobin (Bld) [Mass/Vol] 12.3 g/dL 11.8-15.4 [facility] Blood leukocytes automated c ount (number/volume)Ordered By: Ayanna Vicente on 04-01-2022 WBC (Bld) [#/Vol] 12.0 10*3/uL 4.5-11.0 [facility] Cerebrospinal fluid unidenti fied cells/100 leukocytesOrdered By: Ayanna Vicente on 04-01-2022 Unidentified cells/100 WBC (CSF) 2 % 0-0 [facility] Comment on above: PRO LYMPHOCYTE Cholesterol [Mass/volume] in Serum or PlasmaOrdered By: Ayanna Vicente on 04-01-2022 Cholesterol [Mass/Vol] 102 mg/dL 140-200 [facility] Comment on above: Chol less than 200 m g/dl low risk Chol 201-239 mg/dl borderline risk Chol 240 mg/dl and greater high risk Chol less than 200 m g/dl low riskChol 201-239 mg/dl borderline riskChol 240 mg/dl and greater high risk Cholesterol in LDL Calc [Mas s/Vol]Ordered By: Ayanna Vicente on 04-01-2022 Cholesterol in LDL [Mass/Vol] 27 mg/dL 0-100 [facility] Comment on above: LDL ATP III [...] 04-01-2022 Cholesterol in VLDL [Mass/Vol] 25 mg/dL [facility] Creatinine and Glomerular fi ltration rate.predicted panel (S/P/Bld)Ordered By: Ayanna Vicente on 04-01-2022 Creatinine [Mass/Vol] 0.84 mg/dL 0.44-1.03 [facility] Eosinophils Auto (Bld) [#/Vo l]Ordered By: Ayanna Vicente on 04-01-2022 Eosinophils (Bld) [#/Vol] N/A [facility] Eosinophils/100 WBC Auto (Bl d)Ordered By: Ayanna Vicente on 04-01-2022 Eosinophils/100 WBC (Bld) N/A [facility] Erythrocyte distribution wid th Auto (RBC) [Ratio]Ordered By: Ayanna Vicente on 04-01-2022 Erythrocyte distribution width (RBC) [Ratio] 17.0 % 11.9-15.3 [facility] Estimated glomerular filtrat ion rate (GFR) non- AmericanOrdered By: Ayanna Vicente on 04-01-2022 GFR/1.73 sq M.predicted among non-blacks MDRD (S/P/Bld) [Vol rate/Area] > 60 mL/Min [facility] Globulin Calc (S) [Mass/Vol] Ordered By: Ayanna Vicente on 04-01-2022 Globulin (S) [Mass/Vol] 2.9 g/dL [facility] Glucose mean value [Mass/vol ume] in Blood Estimated from glycated hemoglobinOrdered By: Ayanna Vicente on 04-01-2022 Average glucose Estimated from glycated hemoglobin (Bld) [Mass/Vol] 255 mg/dL [facility] Hematocrit Auto (Bld) [Volum e fraction]Ordered By: Ayanna Vicente on 04-01-2022 Hematocrit (Bld) [Volume fraction] 37.9 % 34.0-46.4 [facility] Hemoglobin A1c percentageOrd ered By: Ayanna Vicente on 04-01-2022 HbA1c (Bld) [Mass fraction] 10.5 % 4.3-5.6 [facility] Comment on above: Increased risk for d iabetes: 5.7 - 6.4 diabetes: >6.4 glycemic control for adults with diabetes: <7.0 Increased risk for d iabetes: 5.7 - 6.4diabetes: >6.4glycemic control for adults with diabetes: <7.0 Laboratory - Hematology and Cell countsOrdered By: Ayanna Vicente on 09-19-2022 Nucleated RBC/100 WBC (Bld) [Ratio] 0.2 % 0-0.5 [facility] Lymphocytes Auto (Bld) [#/Vo l]Ordered By: Ayanna Vicente on 04-01-2022 Lymphocytes (Bld) [#/Vol] N/A [facility] Lymphocytes/100 WBC Auto (Bl d)Ordered By: Ayanna Vicente on 04-01-2022 Lymphocytes/100 WBC (Bld) N/A [facility] Lymphocytes/100 WBC (Bld) 60 % 18-42 [facility] Lymphocytes/100 WBC Manual c nt (Bld)Ordered By: Ayanna Vicente on 04-01-2022 Lymphocytes/100 WBC (Bld) 3 % 0-12 [facility] MCH Auto (RBC) [Entitic mass ]Ordered By: Ayanna Vicente on 04-01-2022 MCH (RBC) [Entitic mass] 28.3 pg 24.7-34.3 [facility] MCHC Auto (RBC) [Mass/Vol]Or dered By: Ayanna Vicenet on 04-01-2022 MCHC (RBC) [Mass/Vol] 32.4 g/dL 32.0-35.0 [facility] MCV Auto (RBC) [Entitic vol] Ordered By: Ayanna Vicente on 04-01-2022 MCV (RBC) [Entitic vol] 87.6 fL 80-100 [facility] Manual blood monocytes/100 l eukocytesOrdered By: Ayanna Vicente on 04-01-2022 Monocytes/100 WBC (Bld) 3 % 1-3 [facility] Monocytes Auto (Bld) [#/Vol] Ordered By: Ayanna Vicente on 04-01-2022 Monocytes (Bld) [#/Vol] N/A [facility] Monocytes/100 WBC Auto (Bld) Ordered By: Ayanna Vicente on 04-01-2022 Monocytes/100 WBC (Bld) N/A [facility] Neutrophils Auto (Bld) [#/Vo l]Ordered By: Ayanna Vicente on 04-01-2022 Neutrophils (Bld) [#/Vol] N/A [facility] Neutrophils/100 WBC Auto (Bl d)Ordered By: Ayanna Vicente on 04-01-2022 Neutrophils/100 WBC (Bld) N/A [facility] No Panel InformationOrdered By: Ayanna Vicente on 04-01-2022 Estimated GFR () > 60 mL/Min [facility] Comment on above: GFR estimated refere nce range: According to KDOQI guidelines, <60 ml/min/1.73m2 is sufficient to diagnose a patient with chronic kidney disease. Pharmacy Creatinine Clearance (Chem N/A [facility] Platelet Estimate Normal Normal [facility] Platelet Morphology Comment Normal Normal [facility] Smudge Cells Few [facility] Platelet mean volume Auto (B ld) [Entitic vol]Ordered By: Ayanna Vicente on 04-01-2022 Platelet mean volume (Bld) [Entitic vol] 9.3 fL 6.3-10.7 [facility] Platelets Auto (Bld) [#/Vol] Ordered By: Ayanna Vicente on 04-01-2022 Platelets (Bld) [#/Vol] 224 10*3/uL 150-450 [facility] Protein [Mass/volume] in Ser um or PlasmaOrdered By: Ayanna Vicente on 04-01-2022 Protein [Mass/Vol] 6.4 g/dL 6.1-7.9 [facility] RBC Auto (Bld) [#/Vol]Ordere d By: Ayanna Vicente on 04-01-2022 RBC (Bld) [#/Vol] 4.33 10*6/uL 3.60-5.00 [facility] RBC morphologyOrdered By: Vasile Vicente on 04-01-2022 RBC morphology finding Nom (Bld) N/A [facility] Segmented neutrophils/100 WB C Manual cnt (Bld)Ordered By: Ayanna Vicente on 04-01-2022 Segmented neutrophils/100 WBC (Bld) 29 % 50-70 [facility] Serum or plasma alanine roman otransferase measurement without P-5'-P (enzymatic activiOrdered By: Ayanna Vicente on 04-01-2022 ALT No additional P-5'-P [Catalytic activity/Vol] 24 U/L 10-60 [facility] Serum or plasma albumin/glob ulin mass ratioOrdered By: Ayanna Vicente on 04-01-2022 Albumin/Globulin [Mass ratio] 1.2 {ratio} [facility] Serum or plasma alkaline mayelin sphatase measurement (enzymatic activity/volume)Ordered By: Ayanna Vicente on 04-01-2022 ALP [Catalytic activity/Vol] 75 U/L 32-92 [facility] Serum or plasma anion gap de terminationOrdered By: Ayanna Vicente on 04-01-2022 Anion gap [Moles/Vol] 15.8 mmol/L 6.0-15.0 [facility] Serum or plasma aspartate am inotransferase measurement (enzymatic activity/volume)Ordered By: Ayanna Vicente on 04-01-2022 AST [Catalytic activity/Vol] 26 U/L 10-42 [facility] Serum or plasma calcium massimo urement (mass/volume)Ordered By: Ayanna Vicente on 04-01-2022 Calcium [Mass/Vol] 9.3 mg/dL 8.2-10.2 [facility] Serum or plasma chloride chris surement (moles/volume)Ordered By: Ayanna Vicente on 04-01-2022 Chloride [Moles/Vol] 103 mmol/L 95-114 [facility] Serum or plasma glucose massimo urement (mass/volume)Ordered By: Ayanna Vicente on 04-01-2022 Glucose [Mass/Vol] 163 mg/dL 70-100 [facility] Comment on above: ADA recommended [...] Cholesterol in HDL [Mass/Vol] 50 mg/dL 35-85 [facility] Comment on above: HDL CHOL ATP-III CLA SSIFICATION Cardiovascular Risk HDL > or equal to 60 mg/dL LOW HDL < 40 mg/dL HIGH HDL CHOL ATP-III CLA SSIFICATION Cardiovascular RiskHDL > or equal to 60 mg/dL LOWHDL < 40 mg/dL HIGH Serum or plasma potassium me asurement (moles/volume)Ordered By: Ayanna Vicente on 04-01-2022 Potassium [Moles/Vol] 4.4 mmol/L 3.5-5.1 [facility] Serum or plasma sodium measu rement (moles/volume)Ordered By: Ayanna Vicente on 04-01-2022 Sodium [Moles/Vol] 141 mmol/L 136-146 [facility] Serum or plasma total biliru bin measurement (mass/volume)Ordered By: Ayanna Vicente on 04-01-2022 Bilirubin [Mass/Vol] 0.3 mg/dL 0.3-1.2 [facility] Serum or plasma total carbon dioxide measurement (moles/volume)Ordered By: Ayanna Vicente on 04-01-2022 CO2 [Moles/Vol] 26.6 mmol/L 22.0-30.0 [facility] Serum or plasma total choles terol/high density lipoprotein (HDL) cholesterol mass ratOrdered By: Ayanna Vicente on 04-01-2022 Cholesterol.total/Choles terol in HDL [Mass ratio] 2.0 {ratio} <5.0 [facility] Serum or plasma urea nitroge n measurement (mass/volume)Ordered By: Ayanna Vicente on 04-01-2022 Urea nitrogen [Mass/Vol] 12 mg/dL 9-23 [facility] TSH DL <= 0.005 mIU/L QnOrde red By: Ayanna Vicente on 04-01-2022 TSH Qn 1.11 m[IU]/L 0.45-5.33 [facility] Thyroxine (T4) free [Mass/vo lume] in Serum or PlasmaOrdered By: Ayanna Vicente on 04-01-2022 Free T4 [Mass/Vol] 1.02 ng/dL 0.61-1.12 [facility] Triglyceride [Mass/volume] i n Serum or PlasmaOrdered By: Ayanna Vicente on 04-01-2022 Triglyceride [Mass/Vol] 125 mg/dL 35-149 [facility] Comment on above: TRIG ATP III [...] 04-01-2022 Free T3 [Mass/Vol] 2.81 pg/mL 2.50-3.90 [facility] Glucose Glucometer (BldC) [M ass/Vol]Ordered By: Galo Max on 01-26-2022 Glucose [Mass/Vol] 117 mg/dL [facility] Comment on above: Random Glucose Refer ence Range is dependent on time and content of last meal. Glucose of more than 200 mg/dL in a nonstressed, ambulatory subject supports the diagnosis of Diabetes Mellitus. Basophils Auto (Bld) [#/Vol] Ordered By: Ashley Ramos on 01-25-2022 Basophils (Bld) [#/Vol] 0.0 10*3/uL 0.0-0.2 [facility] Basophils/100 WBC Auto (Bld) Ordered By: Ashley Ramos on 01-25-2022 Basophils/100 WBC (Bld) 0.3 % . [facility] Blood hemoglobin measurement (mass/volume)Ordered By: Ashley Ramos on 01-25-2022 Hemoglobin (Bld) [Mass/Vol] 11.0 g/dL 11.8-15.4 [facility] Blood leukocytes automated c ount (number/volume)Ordered By: Ashley Ramos on 01-25-2022 WBC (Bld) [#/Vol] 9.5 10*3/uL 4.5-11.0 [facility] Creatinine and Glomerular fi ltration rate.predicted panel (S/P/Bld)Ordered By: Ashley Ramos on 01-25-2022 Creatinine [Mass/Vol] 0.78 mg/dL 0.44-1.03 [facility] Eosinophils Auto (Bld) [#/Vo l]Ordered By: Ashley Ramos on 01-25-2022 Eosinophils (Bld) [#/Vol] 0.3 10*3/uL 0.0-0.45 [facility] Eosinophils/100 WBC Auto (Bl d)Ordered By: Ashley Ramos on 01-25-2022 Eosinophils/100 WBC (Bld) 3.6 % . [facility] Erythrocyte distribution wid th Auto (RBC) [Ratio]Ordered By: Ashley Ramos on 01-25-2022 Erythrocyte distribution width (RBC) [Ratio] 15.4 % 11.9-15.3 [facility] Estimated glomerular filtrat ion rate (GFR) non- AmericanOrdered By: Ashley Ramos on 01-25-2022 GFR/1.73 sq M.predicted among non-blacks MDRD (S/P/Bld) [Vol rate/Area] > 60 mL/Min [facility] Hematocrit Auto (Bld) [Volum e fraction]Ordered By: Ashley Ramos on 01-25-2022 Hematocrit (Bld) [Volume fraction] 33.2 % 34.0-46.4 [facility] Laboratory - Hematology and Cell countsOrdered By: Ashley Ramos on 01-25-2022 Nucleated RBC/100 WBC (Bld) [Ratio] 0.2 % 0-0.5 [facility] Lymphocytes Auto (Bld) [#/Vo l]Ordered By: Ashley Ramos on 01-25-2022 Lymphocytes (Bld) [#/Vol] 6.4 10*3/uL 1.00-4.8 [facility] Lymphocytes/100 WBC Auto (Bl d)Ordered By: Ashley Ramos on 01-25-2022 Lymphocytes/100 WBC (Bld) 67.6 % . [facility] MCH Auto (RBC) [Entitic mass ]Ordered By: Ashley Ramos on 01-25-2022 MCH (RBC) [Entitic mass] 28.7 pg 24.7-34.3 [facility] MCHC Auto (RBC) [Mass/Vol]Or dered By: Ashley Ramos on 01-25-2022 MCHC (RBC) [Mass/Vol] 33.3 g/dL 32.0-35.0 [facility] MCV Auto (RBC) [Entitic vol] Ordered By: Ashley Ramos on 01-25-2022 MCV (RBC) [Entitic vol] 86.3 fL 80-100 [facility] Monocytes Auto (Bld) [#/Vol] Ordered By: Ashley Ramos on 01-25-2022 Monocytes (Bld) [#/Vol] 0.7 10*3/uL 0.0-0.8 [facility] Monocytes/100 WBC Auto (Bld) Ordered By: Ashley Ramos on 01-25-2022 Monocytes/100 WBC (Bld) 7.4 % . [facility] Neutrophils Auto (Bld) [#/Vo l]Ordered By: Ashley Ramos on 01-25-2022 Neutrophils (Bld) [#/Vol] 2.0 10*3/uL 1.8-7.7 [facility] Neutrophils/100 WBC Auto (Bl d)Ordered By: Ashley Ramos on 01-25-2022 Neutrophils/100 WBC (Bld) 21.1 % . [facility] No Panel InformationOrdered By: Ashley Ramos on 01-25-2022 Estimated GFR () > 60 mL/Min [facility] Comment on above: GFR estimated refere nce range: According to KDOQI guidelines, <60 ml/min/1.73m2 is sufficient to diagnose a patient with chronic kidney disease. Pharmacy Creatinine Clearance (Chem 76.46 [facility] Platelet Estimate Normal Normal [facility] Platelet Morphology Comment Normal Normal [facility] Smudge Cells Few [facility] Platelet mean volume Auto (B ld) [Entitic vol]Ordered By: Ashley Ramos on 01-25-2022 Platelet mean volume (Bld) [Entitic vol] 8.6 fL 6.3-10.7 [facility] Platelets Auto (Bld) [#/Vol] Ordered By: Ashley Ramos on 01-25-2022 Platelets (Bld) [#/Vol] 240 10*3/uL 150-450 [facility] RBC Auto (Bld) [#/Vol]Ordere d By: Ashley Ramos on 01-25-2022 RBC (Bld) [#/Vol] 3.84 10*6/uL 3.60-5.00 [facility] RBC morphologyOrdered By: Kendall Ramos on 01-25-2022 RBC morphology finding Nom (Bld) Normal [facility] Serum or plasma calcium massimo urement (mass/volume)Ordered By: Ashley Ramos on 01-25-2022 Calcium [Mass/Vol] 8.7 mg/dL 8.2-10.2 [facility] Serum or plasma chloride chris surement (moles/volume)Ordered By: Ashley Ramos on 01-25-2022 Chloride [Moles/Vol] 101 mmol/L 95-114 [facility] Serum or plasma glucose massimo urement (mass/volume)Ordered By: Ashley Ramos on 01-25-2022 Glucose [Mass/Vol] 133 mg/dL 70-100 [facility] Comment on above: ADA recommended [...] on 01-25-2022 Potassium [Moles/Vol] 4.0 mmol/L 3.5-5.1 [facility] Serum or plasma sodium measu rement (moles/volume)Ordered By: Ashley Ramos on 01-25-2022 Sodium [Moles/Vol] 141 mmol/L 136-146 [facility] Serum or plasma total carbon dioxide measurement (moles/volume)Ordered By: Ashley Ramos on 01-25-2022 CO2 [Moles/Vol] 30.7 mmol/L 22.0-30.0 [facility] Serum or plasma urea nitroge n measurement (mass/volume)Ordered By: Ashley Ramos on 01-25-2022 Urea nitrogen [Mass/Vol] 14 mg/dL 9-23 [facility] No Panel InformationOrdered By: Galo Max on 01-24-2022 Bedside Glucose Comment Glu2: cleaned meter [facility] Bacterial blood cultureOrder ed By: James Redding on 01-18-2022 Bacteria identified Cx Nom (Bld) NO GROWTH 5 DAYS [facility] Albumin [Mass/volume] in Ser um or PlasmaOrdered By: Galo Max on 01-16-2022 Albumin [Mass/Vol] 3.1 g/dL 3.2-5.5 [facility] Blood acanthocytes detection by light microscopyOrdered By: Galo Max on 01-16-2022 Acanthocytes LM Ql (Bld) Rare [facility] Globulin Calc (S) [Mass/Vol] Ordered By: Galo Max on 01-16-2022 Globulin (S) [Mass/Vol] 3.0 g/dL [facility] No Panel InformationOrdered By: Galo Max on 01-16-2022 CBC Comment See comment [facility] Comment on above: Slide referred to joshua thologist for review Protein [Mass/volume] in Ser um or PlasmaOrdered By: Galo Max on 01-16-2022 Protein [Mass/Vol] 6.1 g/dL 6.1-7.9 [facility] Serum or plasma alanine roman otransferase measurement without P-5'-P (enzymatic activiOrdered By: Galo Max on 01-16-2022 ALT No additional P-5'-P [Catalytic activity/Vol] 24 U/L 10-60 [facility] Serum or plasma albumin/glob ulin mass ratioOrdered By: Galo Max on 01-16-2022 Albumin/Globulin [Mass ratio] 1.0 {ratio} [facility] Serum or plasma alkaline mayelin sphatase measurement (enzymatic activity/volume)Ordered By: Galo Max on 01-16-2022 ALP [Catalytic activity/Vol] 88 U/L 32-92 [facility] Serum or plasma aspartate am inotransferase measurement (enzymatic activity/volume)Ordered By: Galo aMx on 01-16-2022 AST [Catalytic activity/Vol] 23 U/L 10-42 [facility] Serum or plasma prealbumin m easurement (mass/volume)Ordered By: Galo Max on 01-16-2022 Prealbumin [Mass/Vol] 22.1 mg/dL 18.0-38.0 [facility] Serum or plasma total biliru bin measurement (mass/volume)Ordered By: Galo Max on 01-16-2022 Bilirubin [Mass/Vol] 0.6 mg/dL 0.3-1.2 [facility] Creatinine and Glomerular fi ltration rate.predicted panel (S/P/Bld)Ordered By: Bertram Garrison on 01-15-2022 Creatinine [Mass/Vol] 0.80 mg/dL 0.44-1.03 [facility] Comment on above: Delta: 1.35 on 01/14 Estimated glomerular filtrat ion rate (GFR) non- AmericanOrdered By: Bertram Garrison on 01-15-2022 GFR/1.73 sq M.predicted among non-blacks MDRD (S/P/Bld) [Vol rate/Area] > 60 mL/Min [facility] Glucose Glucometer (BldC) [M ass/Vol]Ordered By: Bertram Garrison on 01-15-2022 Glucose [Mass/Vol] 226 mg/dL [facility] Comment on above: Random Glucose Refer ence Range is dependent on time and content of last meal. Glucose of more than 200 mg/dL in a nonstressed, ambulatory subject supports the diagnosis of Diabetes Mellitus. No Panel InformationOrdered By: Bertram Garrison on 01-15-2022 Bedside Glucose Comment Glu2: cleaned meter [facility] Estimated GFR () > 60 mL/Min [facility] Comment on above: GFR estimated refere nce range: According to KDOQI guidelines, <60 ml/min/1.73m2 is sufficient to diagnose a patient with chronic kidney disease. Pharmacy Creatinine Clearance (Chem 75.85 [facility] Serum or plasma calcium massimo urement (mass/volume)Ordered By: Bertram Garrison on 01-15-2022 Calcium [Mass/Vol] 9.2 mg/dL 8.2-10.2 [facility] Serum or plasma chloride chris surement (moles/volume)Ordered By: Bertram Garrison on 01-15-2022 Chloride [Moles/Vol] 99 mmol/L 95-114 [facility] Serum or plasma glucose massimo urement (mass/volume)Ordered By: Bertram Garrison on 01-15-2022 Glucose [Mass/Vol] 293 mg/dL 70-100 [facility] Comment on above: ADA recommended refe rence range Random Glucose Reference Range is dependent on time and content of last meal. Glucose of more than 200 mg/dL in a nonstressed, ambulatory subject supports the diagnosis of Diabetes Mellitus. Serum or plasma potassium me asurement (moles/volume)Ordered By: Bertram Garrison on 01-15-2022 Potassium [Moles/Vol] 4.3 mmol/L 3.5-5.1 [facility] Serum or plasma sodium measu rement (moles/volume)Ordered By: Bertram Garrison on 01-15-2022 Sodium [Moles/Vol] 136 mmol/L 136-146 [facility] Serum or plasma total carbon dioxide measurement (moles/volume)Ordered By: Bertram Garrison on 01-15-2022 CO2 [Moles/Vol] 29.1 mmol/L 22.0-30.0 [facility] Serum or plasma urea nitroge n measurement (mass/volume)Ordered By: Bertram Garrison on 01-15-2022 Urea nitrogen [Mass/Vol] 23 mg/dL 9-23 [facility] Urine culture routineOrdered By: James Redding on 01-15-2022 Bacteria identified Cx Nom (U) Enterococcus faecalis [facility] Basophils Auto (Bld) [#/Vol] Ordered By: Bertram Garrison on 01-14-2022 Basophils (Bld) [#/Vol] 0.1 10*3/uL 0.0-0.2 [facility] Basophils/100 WBC Auto (Bld) Ordered By: Bertram Garrison on 01-14-2022 Basophils/100 WBC (Bld) 0.6 % . [facility] Blood acanthocytes detection by light microscopyOrdered By: Bertram Garrison on 01-14-2022 Acanthocytes LM Ql (Bld) Few [facility] Blood hemoglobin measurement (mass/volume)Ordered By: Bertram Garrison on 01-14-2022 Hemoglobin (Bld) [Mass/Vol] 11.7 g/dL 11.8-15.4 [facility] Blood leukocytes automated c ount (number/volume)Ordered By: Bertram Garrison on 01-14-2022 WBC (Bld) [#/Vol] 11.5 10*3/uL 4.5-11.0 [facility] Eosinophils Auto (Bld) [#/Vo l]Ordered By: Bertram Garrison on 01-14-2022 Eosinophils (Bld) [#/Vol] 0.4 10*3/uL 0.0-0.45 [facility] Eosinophils/100 WBC Auto (Bl d)Ordered By: Bertram Garrison on 01-14-2022 Eosinophils/100 WBC (Bld) 3.3 % . [facility] Erythrocyte distribution wid th Auto (RBC) [Ratio]Ordered By: Bertram Garrison on 01-14-2022 Erythrocyte distribution width (RBC) [Ratio] 14.4 % 11.9-15.3 [facility] Hematocrit Auto (Bld) [Volum e fraction]Ordered By: Bertram Garrison on 01-14-2022 Hematocrit (Bld) [Volume fraction] 35.4 % 34.0-46.4 [facility] Laboratory - Hematology and Cell countsOrdered By: Bertram Garrison on 01-14-2022 Nucleated RBC/100 WBC (Bld) [Ratio] 0.3 % 0-0.5 [facility] Lymphocytes Auto (Bld) [#/Vo l]Ordered By: Bertram Garrison on 01-14-2022 Lymphocytes (Bld) [#/Vol] 7.2 10*3/uL 1.00-4.8 [facility] Lymphocytes/100 WBC Auto (Bl d)Ordered By: Bertram Garrison on 01-14-2022 Lymphocytes/100 WBC (Bld) 62.9 % . [facility] MCH Auto (RBC) [Entitic mass ]Ordered By: Bertram Garrison on 01-14-2022 MCH (RBC) [Entitic mass] 28.4 pg 24.7-34.3 [facility] MCHC Auto (RBC) [Mass/Vol]Or dered By: Bertram Garrison on 01-14-2022 MCHC (RBC) [Mass/Vol] 32.9 g/dL 32.0-35.0 [facility] MCV Auto (RBC) [Entitic vol] Ordered By: Bertram Garrison on 01-14-2022 MCV (RBC) [Entitic vol] 86.1 fL 80-100 [facility] Monocytes Auto (Bld) [#/Vol] Ordered By: Bertram Garrison on 01-14-2022 Monocytes (Bld) [#/Vol] 0.6 10*3/uL 0.0-0.8 [facility] Monocytes/100 WBC Auto (Bld) Ordered By: Bertram Garrison on 01-14-2022 Monocytes/100 WBC (Bld) 5.0 % . [facility] Neutrophils Auto (Bld) [#/Vo l]Ordered By: Bertram Garrison on 01-14-2022 Neutrophils (Bld) [#/Vol] 3.2 10*3/uL 1.8-7.7 [facility] Neutrophils/100 WBC Auto (Bl d)Ordered By: Bertram Garrison on 01-14-2022 Neutrophils/100 WBC (Bld) 28.2 % . [facility] No Panel InformationOrdered By: Bertram Garrison on 01-14-2022 Platelet Estimate Normal Normal [facility] Platelet Morphology Comment Normal Normal [facility] Platelet mean volume Auto (B ld) [Entitic vol]Ordered By: Bertram Garrison on 01-14-2022 Platelet mean volume (Bld) [Entitic vol] 9.8 fL 6.3-10.7 [facility] Platelets Auto (Bld) [#/Vol] Ordered By: Bertram Garrison on 01-14-2022 Platelets (Bld) [#/Vol] 277 10*3/uL 150-450 [facility] RBC Auto (Bld) [#/Vol]Ordere d By: Bertram Garrison on 01-14-2022 RBC (Bld) [#/Vol] 4.11 10*6/uL 3.60-5.00 [facility] RBC morphologyOrdered By: New Garrison on 01-14-2022 RBC morphology finding Nom (Bld) Normal [facility] Albumin [Mass/volume] in Ser um or PlasmaOrdered By: James Redding on 01-13-2022 Albumin [Mass/Vol] 3.1 g/dL 3.2-5.5 [facility] Automated erythrocytes count in urine sediment (number/area)Ordered By: James Redding on 01-13-2022 RBC Auto (Urine sed) [#/Area] 0-1 [HPF] 0-4 [facility] Automated leukocytes count i n urine sediment (number/area)Ordered By: James Redding on 01-13-2022 WBC Auto (Urine sed) [#/Area] 50-100 [HPF] 0-4 [facility] Bilirubin Test strip Ql (U)O rdered By: James Redding on 01-13-2022 Bilirubin Ql (U) 1+ Negative [facility] COVID-19 Positive/NegativeOr dered By: James Redding on 01-13-2022 SARS-CoV-2 (COVID-19) N gene FARRAH+probe Ql (Resp) Negative Negative [facility] Comment on above: Testing for SARS-CoV -2 by RT-PCR This test was developed and its performance characteristics determined by [employer] ([employer] and validated at the [facility]. This test has not been FDA [...] (COVID-19) Ag IA.rapid Ql (Resp) Negative Negative [facility] Comment on above: This is a duplicate Brianna SARS Antigen (DUSTIN) result to be used for statistical tracking purpose only. Color Auto (U)Ordered By: Anni Redding on 01-13-2022 Color (U) Dark yellow Yellow [facility] Globulin Calc (S) [Mass/Vol] Ordered By: James Redding on 01-13-2022 Globulin (S) [Mass/Vol] 3.0 g/dL F [facility] Ketones Auto test strip (U) [Mass/Vol]Ordered By: James Redding on 01-13-2022 Ketones (U) [Mass/Vol] Trace Negative [facility] - UrinalysisOrder ed By: James Redding on 01-13-2022 Hyaline casts LM Ql (Urine sed) 9-19 [LPF] 0-8 [facility] Nitrite Test strip Ql (U)Ord ered By: James Redding on 01-13-2022 Nitrite Ql (U) Negative Negative [facility] No Panel InformationOrdered By: James Redding on 01-13-2022 Smudge Cells Few [facility] SARS Antigen (LFIA) [facility] Protein Auto test strip (U) [Mass/Vol]Ordered By: James Redding on 01-13-2022 Protein (U) [Mass/Vol] 30 mg/dL Negative [facility] Protein [Mass/volume] in Ser um or PlasmaOrdered By: James Redding on 01-13-2022 Protein [Mass/Vol] 6.1 g/dL 6.1-7.9 [facility] Serum or plasma alanine roman otransferase measurement without P-5'-P (enzymatic activiOrdered By: James Redding on 01-13-2022 ALT No additional P-5'-P [Catalytic activity/Vol] 27 U/L 10-60 [facility] Serum or plasma albumin/glob ulin mass ratioOrdered By: James Redding on 01-13-2022 Albumin/Globulin [Mass ratio] 1.0 {ratio} [facility] Serum or plasma alkaline mayelin sphatase measurement (enzymatic activity/volume)Ordered By: James Redding on 01-13-2022 ALP [Catalytic activity/Vol] 95 U/L 32-92 [facility] Serum or plasma aspartate am inotransferase measurement (enzymatic activity/volume)Ordered By: James Redding on 01-13-2022 AST [Catalytic activity/Vol] 27 U/L 10-42 [facility] Serum or plasma total biliru bin measurement (mass/volume)Ordered By: James Redding on 01-13-2022 Bilirubin [Mass/Vol] 0.6 mg/dL 0.3-1.2 [facility] Specific gravity Auto test s trip (U) [Rel density]Ordered By: James Redding on 01-13-2022 Specific gravity (U) [Rel density] 1.029 1.001-1.030 [facility] Squamous epithelial cells de tection in urine sediment by light microscopyOrdered By: James Redding on 01-13-2022 Epithelial cells.squamous LM Ql (Urine sed) 1-2 [HPF] 0-1 [facility] Troponin I.cardiac [Mass/vol ume] in Serum or Plasma by High sensitivity methodOrdered By: James Redding on 01-13-2022 Troponin I.cardiac High sensitivity method [Mass/Vol] 4 pg/mL 0-15 [facility] Urine bacteria detection by automated methodOrdered By: James Redding on 01-13-2022 Bacteria Auto Ql (U) 2+ None Seen [facility] Urine clarity by refractomet ry automatedOrdered By: James Redding on 01-13-2022 Clarity Refractometry automated (U) Cloudy Clear [facility] Urine glucose measurement by automated test strip (mass/volume)Ordered By: James Redding on 01-13-2022 Glucose Auto test strip (U) [Mass/Vol] Normal mg/dL Normal [facility] Urine hemoglobin detection b y automated test stripOrdered By: James Redding on 01-13-2022 Hemoglobin Auto test strip Ql (U) Negative Negative [facility] Urine leukocyte esterase det ection by automated test stripOrdered By: James Redding on 01-13-2022 Leukocyte esterase Auto test strip Ql (U) 3+ Negative [facility] Urobilinogen Auto test strip (U) [Mass/Vol]Ordered By: James Redding on 01-13-2022 Urobilinogen (U) [Mass/Vol] Normal mg/dL Normal [facility] pH Auto test strip (U)Ordere d By: James Redding on 01-13-2022 pH (U) 5.0 [pH] 5.0-9.0 [facility] CARDIAC STRESS/REST INJE CTIONon 01-04-2021 [facility] CARDIAC STRESS/REST INJECTION Patient Name: KATHY WASHBURN STUDY: MYOCARDIAL PERFUSION STRESS TEST WITH LEXISCAN Performing facility: [facility], [address] [place] [address], [address] Provider: Osmel Fernandes MD, FACC PCP: Dr. Lyndon Vicente Supervising provider: Osmel Fernandes MD, FACC INDICATION: Chest Pain; HTN Hyperlipidemia Diabetes Dyspnea HISTORY: Gender: F; Age: 80 y/o ; Height: 175.26 cm; Weight: [phone] kg. High Cholesterol; Diabetes; HTN; Chest Pain; SOB; Quit smoking Unknown years ago. COMPARISON: Previous nuclear testing completed at [facility]. ACCESSION NUMBER(S): [id number]; [id number]; [id number] ORDERING CLINICIAN: MONET FERNANDES TECHNIQUE: ONE DAY [...] comparison. Electronically signed by: SARAH HODGES MD [facility] Vital Signs Date Time Vital Sign Value Performing Clinician Faci lity 02-15-2025 14:44-0400 Body height 175.26 cm Ayanna Vicente DO Work Phone: [facility] 02-15-2025 14:44-0400 Body mass index (BMI) [Ratio] 34 kg/m2 Ayanna Vicente DO Work Phone: [facility] 02-15-2025 14:44-0400 Body temperature 98.3 [degF] Ayanna Vicente DO Work Phone: [facility] 02-15-2025 14:44-0400 Body weight 104.32 kg Ayanna Vicente DO Work Phone: [facility] 02-15-2025 14:44-0400 Diastolic blood pressure 82 mm[Hg] Ayanna Vicente DO Work Phone: [facility] 02-15-2025 14:44-0400 Heart rate 79 /min Ayanna Vicente DO Work Phone: [facility] 02-15-2025 14:44-0400 SaO2% (BldA) [Mass fraction] 92 % Ayanna Vicente DO Work Phone: [facility] 02-15-2025 14:44-0400 Systolic blood pressure 120 mm[Hg] Ayanna Vicente DO Work Phone: [facility] 01-27-2025 13:56-0400 Body height 175.26 cm Ayanna Girvin DO Work Phone: [facility] 01-27-2025 13:56-0400 Body mass index (BMI) [Ratio] 33.5 kg/m2 Ayanna Vicente DO Work Phone: [facility] 01-27-2025 13:56-0400 Body weight 103.02 kg Ayanna Vicente DO Work Phone: [facility] 01-27-2025 13:56-0400 Diastolic blood pressure 74 mm[Hg] Ayanna Vicente DO Work Phone: [facility] 01-27-2025 13:56-0400 Heart rate 59 /min Ayanna Vicente DO Work Phone: [facility] 01-27-2025 13:56-0400 Respiratory rate 16 /min Ayanna Vicente DO Work Phone: [facility] 01-27-2025 13:56-0400 SaO2% (BldA) [Mass fraction] 94 % Ayanna Vicente DO Work Phone: [facility] 01-27-2025 13:56-0400 Systolic blood pressure 122 mm[Hg] Ayanna Vicente DO Work Phone: [facility] 01-12-2025 13:23-0400 Body height 175.3 cm Moe Itzkowitz DO Work Phone: [facility] 01-12-2025 13:23-0400 Body mass index (BMI) [Ratio] 33.23 kg/m2 Moe Itzkowitz DO Work Phone: [facility] 01-12-2025 13:23-0400 Body weight 102.06 kg Moe Itzkowitz DO Work Phone: [facility] 01-12-2025 13:23-0400 Diastolic blood pressure 76 mm[Hg] Moe Itzkowitz DO Work Phone: [facility] 01-12-2025 13:23-0400 Systolic blood pressure 122 mm[Hg] Moe Itzkowitz DO Work Phone: [facility] 12-17-2024 10:270400 Body height 172.7 cm Zohaib German MD Work Phone: [facility] 12-17-2024 10:27-0400 Body mass index (BMI) [Ratio] 34.74 kg/m2 Zohaib German MD Work Phone: [facility] 12-17-2024 10:27-0400 Body temperature 64.99 [degF] Zohaib German MD Work Phone: [facility] 12-17-2024 10:270400 Body weight 103.6 kg Zohaib German MD Work Phone: [facility] 12-17-2024 10:27-0400 Diastolic blood pressure 71 mm[Hg] Zohaib German MD Work Phone: [facility] 12-17-2024 10:27-0400 Systolic blood pressure 112 mm[Hg] Zohaib German MD Work Phone: [facility] 12-16-2024 [id number] Body height 175.26 cm [facility] 12-16-2024 14:21-0400 Body mass index (BMI) [Ratio] 34.9 kg/m2 [facility] 12-16-2024 14:21-0400 Body temperature 96.9 [degF] [facility] 12-16-2024 14:21-0400 Body weight 107.5 kg [facility] 12-16-2024 14:21-0400 Diastolic blood pressure 69 mm[Hg] [facility] 12-16-2024 14:21-0400 Heart rate 68 /min [facility] 12-16-2024 14:21-0400 Respiratory rate 18 /min [facility] 12-16-2024 14:21-0400 SaO2% (BldA) [Mass fraction] 92 % [facility] 12-16-2024 14:21-0400 Systolic blood pressure 104 mm[Hg] [facility] 11-10-2024 15:40-0400 Body height 175.26 cm [facility] 11-10-2024 15:40-0400 Body mass index (BMI) [Ratio] 32.9 kg/m2 [facility] 11-10-2024 15:40-0400 Body temperature 97.3 [degF] [facility] 11-10-2024 15:40-0400 Body weight 101.15 kg [facility] 11-10-2024 15:40-0400 Diastolic blood pressure 84 mm[Hg] [facility] 11-10-2024 15:40-0400 Heart rate 74 /min [facility] 11-10-2024 15:40-0400 SaO2% (BldA) [Mass fraction] 94 % [facility] 11-10-2024 15:40-0400 Systolic blood pressure 132 mm[Hg] [facility] 08-16-2024 09:06-0500 Diastolic blood pressure 58 mm[Hg] SUSAN [facility] 08-16-2024 09:06-0500 Heart rate 69 /min [facility] 08-16-2024 09:06-0500 Respiratory rate 16 /min [facility] 08-16-2024 09:06-0500 Systolic blood pressure 92 mm[Hg] [facility]AN [facility] 08-09-2024 14:16-0500 Body mass index (BMI) [Ratio] 32.93 kg/m2 Esvin Dubon NP Work Phone: [facility] 08-09-2024 14:16-0500 Body weight 101.15 kg Esvin Dubon [employer]ONSTRU[employer]IVE SURGEON Work Phone: [facility] 08-09-2024 14:16-0500 Diastolic blood pressure 87 mm[Hg] Esvin Dubon RECONSTRUCTIVE SURGEON Work Phone: [facility] 08-09-2024 14:16-0500 Heart rate 64 /min Esvin Dubon RECONSTRU[employer]IVE SURGEON Work Phone: [facility] 08-09-2024 14:16-0500 Systolic blood pressure 125 mm[Hg] Esvin Dubon RECONSTRUCTIVE SURGEON Work Phone: [facility] 06-23-2024 14:34-0500 Body height 175.3 cm Moe Itzkowitz DO Work Phone: [facility] 06-23-2024 14:34-0500 Body mass index (BMI) [Ratio] 33.67 kg/m2 Moe Itzkowitz DO Work Phone: [facility] 06-23-2024 14:34-0500 Body weight 103.42 kg Moe Itzkowitz DO Work Phone: [facility] 06-23-2024 14:34-0500 Diastolic blood pressure 85 mm[Hg] Moe Itzkowitz DO Work Phone: [facility] 06-23-2024 14:34-0500 Systolic blood pressure 135 mm[Hg] Moe Itzkowitz DO Work Phone: [facility] 06-17-2024 13:58-0500 Body mass index (BMI) [Ratio] 33.82 kg/m2 Christopher Aundrea DO Work Phone: [facility] 06-17-2024 13:58-0500 Body weight 103.87 kg Christopher Aundrea DO Work Phone: [facility] 06-17-2024 13:58-0500 Diastolic blood pressure 74 mm[Hg] Christopher Aundrea DO Work Phone: [facility] 06-17-2024 13:58-0500 Heart rate 84 /min Christopher Aundrea DO Work Phone: [facility] 06-17-2024 13:58-0500 SaO2% (BldA) [Mass fraction] 90 % Christopher Aundrea DO Work Phone: [facility] 06-17-2024 13:58-0500 Systolic blood pressure 138 mm[Hg] Primoalicia Guillaume DO Work Phone: [facility] 05-26-2024 13:54-0500 Body height 172.7 cm Chad Freitas MD Work Phone: [facility] 05-26-2024 13:54-0500 Body mass index (BMI) [Ratio] 35.31 kg/m2 Chad Freitas MD Work Phone: [facility] 05-26-2024 13:54-0500 Body temperature 97 [degF] Chad Freitas MD Work Phone: [facility] 05-26-2024 13:54-0500 Body weight 105.33 kg Chad Freitas MD Work Phone: [facility] 05-26-2024 13:54-0500 Diastolic blood pressure 51 mm[Hg] Chda Freitas MD Work Phone: [facility] 05-26-2024 13:54-0500 Heart rate 70 /min Chad Freitas MD Work Phone: [facility] 05-26-2024 13:54-0500 Respiratory rate 16 /min Chad Freitas MD Work Phone: [facility] 05-26-2024 13:54-0500 SaO2% (BldA) [Mass fraction] 91 % Chad Freitas MD Work Phone: [facility] 05-26-2024 13:54-0500 Systolic blood pressure 92 mm[Hg] Chad Freitas MD Work Phone: [facility] 05-17-2024 13:00-0500 Body height 172.7 cm Zohaib German MD Work Phone: [facility] 05-17-2024 13:00-0500 Body mass index (BMI) [Ratio] 34.67 kg/m2 Zohaib German MD Work Phone: [facility] 05-17-2024 13:00-0500 Body weight 103.4 kg Zohaib German MD Work Phone: [facility] 05-17-2024 13:00-0500 Diastolic blood pressure 75 mm[Hg] Zohaib German MD Work Phone: [facility] 05-17-2024 13:00-0500 Heart rate 62 /min Zohaib German MD Work Phone: [facility] 05-17-2024 13:00-0500 Systolic blood pressure 117 mm[Hg] Zohaib German MD Work Phone: [facility] 05-12-2024 13:50-0400 Body height 180.34 cm DO Ayanna Vicente Work Phone: [facility] 05-12-2024 13:50-0400 Body mass index (BMI) [Ratio] 32.2 kg/m2 DO Ayanna Vicente Work Phone: [facility] 05-12-2024 13:50-0400 Body weight 104.77 kg DO Ayanna Vicente Work Phone: [facility] 05-12-2024 13:50-0400 Diastolic blood pressure 57 mm[Hg] DO Ayanna Ogabbi Work Phone: [facility] 05-12-2024 13:50-0400 Heart rate 86 /min DO Ayanna Vicente Work Phone: [facility] 05-12-2024 13:50-0400 SaO2% (BldA) [Mass fraction] 93 % DO Ayanna Vicente Work Phone: [facility] 05-12-2024 13:50-0400 Systolic blood pressure 128 mm[Hg] DO Ayanna Vicente Work Phone: [facility] 05-11-2024 14:45-0400 Body mass index (BMI) [Ratio] 31.9 kg/m2 DO Ayanna Vicente Work Phone: [facility] 05-11-2024 14:45-0400 Body temperature 97.3 [degF] DO Ayanna Vicente Work Phone: [facility] 05-11-2024 14:45-0400 Diastolic blood pressure 70 mm[Hg] DO Ayanna Vicente Work Phone: [facility] 05-11-2024 14:45-0400 Heart rate 76 /min DO Ayanna Vicente Work Phone: [facility] 05-11-2024 14:45-0400 SaO2% (BldA) [Mass fraction] 91 % DO Ayanna Vicente Work Phone: [facility] 05-11-2024 14:45-0400 Systolic blood pressure 116 mm[Hg] DO Ayanna Vicente Work Phone: [facility] 05-11-2024 13:41-0400 Body height 180.34 cm DO Ayanna Vicente Work Phone: [facility] 05-11-2024 13:41-0400 Body weight 103.87 kg DO Ayanna Vicente Work Phone: [facility] 04-05-2024 08:52-0400 Body height 180.34 cm [facility] 04-05-2024 08:52-0400 Body mass index (BMI) [Ratio] 32.3 kg/m2 [facility] 04-05-2024 08:52-0400 Body temperature 97 [degF] [facility] 04-05-2024 08:52-0400 Body weight 105.23 kg [facility] 04-05-2024 08:52-0400 Diastolic blood pressure 62 mm[Hg] [facility] 04-05-2024 08:52-0400 Heart rate 87 /min [facility] 04-05-2024 08:52-0400 SaO2% (BldA) [Mass fraction] 90 % [facility] 04-05-2024 08:52-0400 Systolic blood pressure 98 mm[Hg] [facility] 03-08-2024 14:43-0400 Body height 180.34 cm [facility] 03-08-2024 14:43-0400 Body mass index (BMI) [Ratio] 32.1 kg/m2 [facility] 03-08-2024 14:43-0400 Body temperature 97 [degF] [facility] 03-08-2024 14:43-0400 Body weight 104.32 kg [facility] 03-08-2024 14:43-0400 Diastolic blood pressure 64 mm[Hg] [facility] 03-08-2024 14:43-0400 Heart rate 73 /min [facility] 03-08-2024 14:43-0400 SaO2% (BldA) [Mass fraction] 95 % [facility] 03-08-2024 14:43-0400 Systolic blood pressure 98 mm[Hg] [facility] 02-24-2024 10:15-0400 Body temperature 97.88 [degF] [facility] 02-24-2024 10:15-0400 Diastolic blood pressure 42 mm[Hg] [facility]AN [facility] 02-24-2024 10:15-0400 Heart rate 68 /min [facility] 02-24-2024 10:15-0400 Respiratory rate 16 /min [facility] 02-24-2024 10:15-0400 Systolic blood pressure 106 mm[Hg] [facility]AN [facility] 02-05-2024 08:08-0400 Body height 180.34 cm [facility] 02-05-2024 08:08-0400 Body mass index (BMI) [Ratio] 32.3 kg/m2 [facility] 02-05-2024 08:08-0400 Body temperature 97.8 [degF] [facility] 02-05-2024 08:08-0400 Body weight 105.23 kg [facility] 02-05-2024 08:08-0400 Diastolic blood pressure 74 mm[Hg] [facility] 02-05-2024 08:08-0400 Heart rate 70 /min [facility] 02-05-2024 08:08-0400 Respiratory rate 18 /min [facility] 02-05-2024 08:08-0400 SaO2% (BldA) [Mass fraction] 98 % [facility] 02-05-2024 08:08-0400 Systolic blood pressure 122 mm[Hg] [facility] 01-12-2024 14:32-0400 Body height 180.34 cm DO Ayanna Vicente Work Phone: [facility] 01-12-2024 14:32-0400 Body mass index (BMI) [Ratio] 30.9 kg/m2 DO Ayanna Vicente Work Phone: [facility] 01-12-2024 14:32-0400 Body temperature 98 [degF] DO Ayanna Vicente Work Phone: [facility] 01-12-2024 14:32-0400 Body weight 100.69 kg DO Ayanna Vicente Work Phone: [facility] 01-12-2024 14:32-0400 Heart rate 61 /min DO Ayanna Vicente Work Phone: [facility] 01-12-2024 14:32-0400 Respiratory rate 18 /min DO Ayanna Vicente Work Phone: [facility] 01-12-2024 14:32-0400 SaO2% (BldA) [Mass fraction] 91 % DO Ayanna Vicente Work Phone: [facility] 10-21-2023 14:45-0400 Body height 180.34 cm DO Ayanna Ogabbi Work Phone: [facility] 10-21-2023 14:45-0400 Body mass index (BMI) [Ratio] 32.5 kg/m2 DO Ayanna Vicente Work Phone: [facility] 10-21-2023 14:45-0400 Body temperature 97.5 [degF] DO Ayanna Vicente Work Phone: [facility] 10-21-2023 14:45-0400 Body weight 105.68 kg DO Ayanna Vicente Work Phone: [facility] 10-21-2023 14:45-0400 Diastolic blood pressure 76 mm[Hg] DO Ayanna Vicente Work Phone: [facility] 10-21-2023 14:45-0400 Respiratory rate 18 /min DO Ayanna Vicente Work Phone: [facility] 10-21-2023 14:45-0400 SaO2% (BldA) [Mass fraction] 92 % DO Ayanna Vicente Work Phone: [facility] 10-21-2023 14:45-0400 Systolic blood pressure 118 mm[Hg] DO Ayanna Vicente Work Phone: [facility] 08-12-2023 14:20-0500 Body height 180.34 cm Homa Mckeon Other [facility] 08-12-2023 14:20-0500 Body mass index (BMI) [Ratio] 32.21 kg/m2 Homa Mckeon Other [facility] Other 08-12-2023 14:20-0500 Body weight 104.78 kg Homa Mckeon Other [facility] Other 08-12-2023 14:20-0500 Body weight 104.77 kg DO Ayanna Vicente Work Phone: [facility] 04-15-2023 14:40-0400 Body height 180.34 cm Ayanna Ogabbi Other [facility] Other 04-15-2023 14:40-0400 Body mass index (BMI) [Ratio] 33.61 kg/m2 Ayanna Sakina Other [facility] Other 04-15-2023 14:40-0400 Body temperature 98.8 [degF] Ayanna Sakina Other [facility] Other 04-15-2023 14:40-0400 Body weight 109.32 kg Ayanna Vicente Other [facility] Other 04-15-2023 14:40-0400 Diastolic blood pressure 82 mm[Hg] Ayanna Vicente Other [facility] Other 04-15-2023 14:40-0400 Respiratory rate 18 /min Ayanna Earleabbi Other [facility] Other 04-15-2023 14:40-0400 SaO2% (BldA) [Mass fraction] 93 % Ayanna Sakina Other [facility] Other 04-15-2023 14:40-0400 Systolic blood pressure 128 mm[Hg] Ayanna Sakina Other [facility] Other 02-25-2023 14:40-0400 Body height 180.34 cm Ayanna Vicente Other [facility] Other 02-25-2023 14:40-0400 Body mass index (BMI) [Ratio] 32.91 kg/m2 Ayanna Earleabbi Other [facility] Other 02-25-2023 14:40-0400 Body temperature 97.9 [degF] Ayanna Vicente Other [facility] Other 02-25-2023 14:40-0400 Body weight 107.05 kg Ayanna Vicente Other [facility] Other 02-25-2023 14:40-0400 Diastolic blood pressure 84 mm[Hg] Ayanna Vicente Other [facility] Other 02-25-2023 14:40-0400 Respiratory rate 18 /min Ayanna Vicente Other [facility] Other 02-25-2023 14:40-0400 SaO2% (BldA) [Mass fraction] 94 % Ayanna Vicente Other [facility] Other 02-25-2023 14:40-0400 Systolic blood pressure 122 mm[Hg] Ayanna Vicente Other [facility] Other 02-11-2023 11:35-0400 Blood Pressure Location SUSAN RANDOLPH [facility] 02-11-2023 11:35-0400 Diastolic blood pressure 67 mm[Hg] SUSAN JAX [facility] 02-11-2023 11:35-0400 Heart rate 70 /min SUSAN KHANRY [facility] 02-11-2023 11:35-0400 Systolic blood pressure 100 mm[Hg] SUSAN JAX [facility] 02-07-2023 13:28-0400 Body height 177.8 cm Santos Lares MD Work Phone: [facility] 02-07-2023 13:28-0400 Body temperature 97.3 [degF] Santos Lares MD Work Phone: [facility] 02-07-2023 13:28-0400 Body weight 107.96 kg Santos Lares MD Work Phone: [facility] 02-07-2023 13:28-0400 Diastolic blood pressure 72 mm[Hg] Santos Lares MD Work Phone: [facility] 02-07-2023 13:28-0400 Heart rate 74 /min Santos Lares MD Work Phone: [facility] 02-07-2023 13:28-0400 Respiratory rate 20 /min Santos Lares MD Work Phone: [facility] 02-07-2023 13:28-0400 SaO2% (BldA) [Mass fraction] 93 % Santos Lares MD Work Phone: [facility] 02-07-2023 13:28-0400 Systolic blood pressure 122 mm[Hg] Santos Lares MD Work Phone: [facility] 07-19-2022 12:17-0500 Body height 177.8 cm Santos Lares MD Work Phone: [facility] 07-19-2022 12:17-0500 Body temperature 98.01 [degF] Santos Lares MD Work Phone: [facility] 07-19-2022 12:17-0500 Body weight 105.6 kg Santos Lares MD Work Phone: [facility] 07-19-2022 12:17-0500 Diastolic blood pressure 71 mm[Hg] Santos Lares MD Work Phone: [facility] 07-19-2022 12:17-0500 Heart rate 72 /min Santos Lares MD Work Phone: [facility] 07-19-2022 12:17-0500 Respiratory rate 16 /min Santos Lares MD Work Phone: [facility] 07-19-2022 12:17-0500 SaO2% (BldA) [Mass fraction] 93 % Santos Lares MD Work Phone: [facility] 07-19-2022 12:17-0500 Systolic blood pressure 111 mm[Hg] Santos Lares MD Work Phone: [facility] 04-18-2022 11:58-0400 Body height 177.8 cm Santos Lares MD Work Phone: [facility] 04-18-2022 11:58-0400 Body temperature 97.81 [degF] Santos Lares MD Work Phone: [facility] 04-18-2022 11:58-0400 Body weight 102.69 kg Santos Lares MD Work Phone: [facility] 04-18-2022 11:58-0400 Diastolic blood pressure 68 mm[Hg] Santos Lares MD Work Phone: [facility] 04-18-2022 11:58-0400 Heart rate 70 /min Santos Lares MD Work Phone: [facility] 04-18-2022 11:58-0400 Respiratory rate 16 /min Santos Lares MD Work Phone: [facility] 04-18-2022 11:58-0400 SaO2% (BldA) [Mass fraction] 99 % Santos Lares MD Work Phone: [facility] 04-18-2022 11:58-0400 Systolic blood pressure 127 mm[Hg] Santos Lares MD Work Phone: [facility] 04-04-2022 10:59-0400 Body height 177.8 cm Santos Lares MD Work Phone: [facility] 04-04-2022 10:59-0400 Body temperature 97.11 [degF] Santos Lares MD Work Phone: [facility] 04-04-2022 10:59-0400 Body weight 103.78 kg Santos Lares MD Work Phone: [facility] 04-04-2022 10:59-0400 Diastolic blood pressure 73 mm[Hg] Santos Lares MD Work Phone: [facility] 04-04-2022 10:59-0400 Heart rate 68 /min Santos Lares MD Work Phone: [facility] 04-04-2022 10:59-0400 Respiratory rate 16 /min Santos Lares MD Work Phone: [facility] 04-04-2022 10:59-0400 SaO2% (BldA) [Mass fraction] 95 % Santos Lares MD Work Phone: [facility] 04-04-2022 10:59-0400 Systolic blood pressure 138 mm[Hg] Santos Lares MD Work Phone: [facility] 04-02-2022 14:20-0400 Body height 180.34 cm Ayanna Vicente Other [facility] Other 04-02-2022 14:20-0400 Body mass index (BMI) [Ratio] 31.73 kg/m2 Ayanna Vicente Other [facility] Other 04-02-2022 14:20-0400 Body temperature 97.2 [degF] Ayanna Vicente Other [facility] Other 04-02-2022 14:20-0400 Body weight 103.19 kg Ayanna Vicente Other [facility] Other 04-02-2022 14:20-0400 Diastolic blood pressure 76 mm[Hg] Ayanna Vicente Other [facility] Other 04-02-2022 14:20-0400 Respiratory rate 18 /min Ayanna Vicente Other [facility] Other 04-02-2022 14:20-0400 SaO2% (BldA) [Mass fraction] 96 % Ayanna Vicente Other [facility] Other 04-02-2022 14:20-0400 Systolic blood pressure 120 mm[Hg] Ayanna Vicente Other [facility] Other 02-06-2022 14:20-0400 Body height 180.34 cm Ayanna Vicente Other [facility] Other 02-06-2022 14:20-0400 Body mass index (BMI) [Ratio] 31.94 kg/m2 Ayanna Vicente Other [facility] Other 02-06-2022 14:20-0400 Body temperature 97.4 [degF] Ayanna Vicente Other [facility] Other 02-06-2022 14:20-0400 Body weight 103.87 kg Ayanna Vicente Other [facility] Other 02-06-2022 14:20-0400 Diastolic blood pressure 68 mm[Hg] Ayanna Vicente Other [facility] Other 02-06-2022 14:20-0400 Respiratory rate 18 /min Ayanna Vicente Other [facility] Other 02-06-2022 14:20-0400 SaO2% (BldA) [Mass fraction] 93 % Ayanna Vicente Other [facility] Other 02-06-2022 14:20-0400 Systolic blood pressure 114 mm[Hg] Ayanna Vicente Other [facility] Other 01-26-2022 05:00-0400 Body temperature 97.6 [degF] DO Ayanna Vicente Work Phone: [facility] 01-26-2022 05:00-0400 Diastolic blood pressure 77 mm[Hg] DO Ayanna Vicente Work Phone: [facility] 01-26-2022 05:00-0400 Heart rate 64 /min DO Ayanna Vicente Work Phone: [facility] 01-26-2022 05:00-0400 Respiratory rate 16 /min DO Ayanna Vicente Work Phone: [facility] 01-26-2022 05:00-0400 SaO2% (BldA) [Mass fraction] 94 % DO Ayanna Vicente Work Phone: [facility] 01-26-2022 05:00-0400 Systolic blood pressure 116 mm[Hg] DO Ayanna Vicente Work Phone: [facility] 01-23-2022 06:55-0400 Body height 177.8 cm DO Ayanna Vicente Work Phone: [facility] 01-20-2022 06:00-0400 Body weight 109.6 kg DO Ayanna Vicente Work Phone: [facility] 01-15-2022 17:00-0400 Body mass index (BMI) [Ratio] 33 kg/m2 DO Ayanna Vicente Work Phone: [facility] 01-15-2022 15:40-0400 Body temperature 97.9 [degF] DO Ayanna Vicente Work Phone: [facility] 01-15-2022 15:40-0400 Diastolic blood pressure 88 mm[Hg] DO Ayanna Vicente Work Phone: [facility] 01-15-2022 15:40-0400 Heart rate 72 /min DO Ayanna Vicente Work Phone: [facility] 01-15-2022 15:40-0400 Respiratory rate 18 /min DO Ayanna Vicente Work Phone: [facility] 01-15-2022 15:40-0400 SaO2% (BldA) [Mass fraction] 95 % DO Ayanna Vicente Work Phone: [facility] 01-15-2022 15:40-0400 Systolic blood pressure 128 mm[Hg] DO Ayanna Vicente Work Phone: [facility] 01-15-2022 05:11-0400 Body weight 107.9 kg DO Ayanna Vicente Work Phone: [facility] 01-13-2022 19:52-0400 Body height 177.8 cm DO Ayanna Vicente Work Phone: [facility] 01-13-2022 19:52-0400 Body mass index (BMI) [Ratio] 34.9 kg/m2 DO Ayanna Vicente Work Phone: [facility] 12-27-2021 11:10-0400 Body height 180.34 cm Ayanna Vicente Other [facility] Other 12-27-2021 11:10-0400 Body mass index (BMI) [Ratio] 33.12 kg/m2 Ayanna Sakina Other [facility] Other 12-27-2021 11:10-0400 Body temperature 97.3 [degF] Ayanna Vicente Other [facility] Other 12-27-2021 11:10-0400 Body weight 107.73 kg Ayanna Ogabbi Other [facility] Other 12-27-2021 11:10-0400 Diastolic blood pressure 82 mm[Hg] Ayanna Vicente Other [facility] Other 12-27-2021 11:10-0400 Respiratory rate 20 /min Ayanna Vicente Other [facility] Other 12-27-2021 11:10-0400 SaO2% (BldA) [Mass fraction] 93 % Ayanna Vicente Other [facility] Other 12-27-2021 11:10-0400 Systolic blood pressure 124 mm[Hg] Ayanna Vicente Other [facility] Other 12-17-2021 12:00-0400 Body height 180.34 cm Ayanna Clevelandnilton Other [facility] Other 12-17-2021 12:00-0400 Body mass index (BMI) [Ratio] 32.21 kg/m2 Ayanna Milner Other [facility] Other 12-17-2021 12:00-0400 Body weight 104.78 kg Ayanna Milner Other [facility] Other 12-17-2021 12:00-0400 Diastolic blood pressure 56 mm[Hg] Ayanna Clevelandnilton Other [facility] Other 12-17-2021 12:00-0400 Systolic blood pressure 98 mm[Hg] Ayanna Clevelandnilton Other [facility] Other 04-04-2021 14:20-0400 Body height 180.34 cm Ayanna Vicente Other [facility] Other 04-04-2021 14:20-0400 Body mass index (BMI) [Ratio] 32.35 kg/m2 Ayanna Vicente Other [facility] Other 04-04-2021 14:20-0400 Body temperature 97.7 [degF] Ayanna Vicente Other [facility] Other 04-04-2021 14:20-0400 Body weight 105.24 kg Ayanna Vicente Other [facility] Other 04-04-2021 14:20-0400 Diastolic blood pressure 70 mm[Hg] Ayanna Vicente Other [facility] Other 04-04-2021 14:20-0400 Respiratory rate 18 /min Ayanna Vicente Other [facility] Other 04-04-2021 14:20-0400 SaO2% (BldA) [Mass fraction] 97 % Ayanna Vicente Other [facility] Other 04-04-2021 14:20-0400 Systolic blood pressure 114 mm[Hg] Ayanna Vicente Other [facility] Other Encounters Encounter Date Encounter Type Care Provider Facility Start: 10-27-2025 ambulatory Sujey X Orzech Facilit y:[facility] Start: 03-07-2025 End: 03-07-2025 ambulatory Som Azul MD Facility: [facility] Start: 02-28-2025 End: 02-28-2025 ambulatory Som Azul MD Facility: [facility] Start: 02-21-2025 End: 02-21-2025 ambulatory Som Azul MD Facility: [facility] Start: 02-15-2025 End: 02-15-2025 ambulatory Ayanna Vicente DO Work Phone: [facility] Work Phone: Start: 02-15-2025 End: 02-15-2025 Patient encounter procedure Ayanna Vicente DO -[facility] Work Phone: Start: 02-09-2025 Non-patient / Non-visit Cem Azul MD -[facility] Work Phone: Start: 02-08-2025 End: 02-08-2025 ambulatory SUSAN RANDOLPH Facility:[facility] Start: 02-08-2025 End: 02-08-2025 Patient encounter procedure [facility] Start: 01-27-2025 End: 01-27-2025 ambulatory Ayanna Vicente DO Work Phone: [facility] Work Phone: Start: 01-27-2025 End: 01-27-2025 Patient encounter procedure Lesli Arevalo MD -[facility] Work Phone: Start: 01-19-2025 End: 01-19-2025 Telephone encounter Moe H Itzkowitz DO Work Phone: [facility] Start: 01-19-2025 End: 01-19-2025 Patient encounter procedure Moe Itzkowitz DO -[facility] Work Phone: Start: 01-19-2025 End: 01-19-2025 ambulatory Ayanna Vicente DO Work Phone: [facility] Work Phone: Start: 01-17-2025 Non-patient / Non-visit Lesli Arevalo MD -[facility] Work Phone: Start: 01-17-2025 End: 01-17-2025 ambulatory [...] Start: 12-17-2024 End: 12-17-2024 ambulatory AYANNA VICENTE Facility:[facility] Start: 12-16-2024 End: 12-16-2024 ambulatory [facility] Work Phone: Start: 12-16-2024 End: 12-16-2024 Patient encounter procedure [facility] Work Phone: Start: 11-17-2024 End: 11-17-2024 Telephone encounter Chad Freitas MD Work Phone: [facility] Comment on above: Records faxed Start: 11-10-2024 End: 11-10-2024 ambulatory [facility] Work Phone: Start: 11-10-2024 End: 11-10-2024 Patient encounter procedure [facility] Work Phone: Start: 11-01-2024 Non-patient / Non-visit [facility] Work Phone: Start: 11-01-2024 End: 11-01-2024 ambulatory Som Azul MD Facility: [facility] Start: 10-11-2024 End: 10-11-2024 ambulatory Som Azul MD Facility: [facility] Start: 09-03-2024 End: 09-03-2024 ambulatory Ayanna Vicente Facility:[facility] Start: 09-03-2024 Non-patient / Non-visit Tad Ag DO Work Phone: [facility] Work Phone: Start: 08-16-2024 End: 08-16-2024 ambulatory SUSAN RANDOLPH Facility:[facility] Start: 08-16-2024 End: 08-16-2024 Patient encounter procedure SUSAN RANDOLPH [facility] [place] Start: 08-16-2024 End: 08-16-2024 ambulatory Som Azul MD Facility: [facility] Start: 08-11-2024 End: 08-11-2024 ambulatory Ayanna Vicente DO Work Phone: [facility] Work Phone: Start: 08-11-2024 End: 08-11-2024 Patient encounter procedure Ayanna Vicente DO Work Phone: [facility] [place] Work Phone: Start: 08-11-2024 Non-patient / Non-visit Ayanna Vicente DO Work Phone: [facility] Work Phone: Start: 08-10-2024 End: 08-10-2024 ambulatory Ayanna Vicente DO Work Phone: [facility] Work Phone: Start: 08-10-2024 End: 08-10-2024 Departed Referred Ayanna Vicente DO Work Phone: [facility] [place] Work Phone: Start: 08-09-2024 End: 08-09-2024 Office outpatient visit 15 minutes Esvin Dubon RECONSTRUCTIVE SURGEON Work Phone: [facility] Comment on above: Cognitive impairment (Primary Dx) Start: 08-09-2024 End: 08-09-2024 ambulatory ESVIN DBUON Not Available Start: 08-09-2024 End: 08-09-2024 Bamboo flowspieter Dubon RECONSTRUCTIVE SURGEON Work Phone: [facility] Start: 08-09-2024 End: 08-09-2024 Bamboo aparnaheet Esvinkamari Dubon RECONSTRUCTIVE SURGEON Work Phone: [facility] Start: 08-04-2024 End: 08-04-2024 ambulatory ESVINKamari DUBON Not Available Start: 07-26-2024 End: 07-26-2024 ambulatory [facility] Start: 07-12-2024 End: 07-12-2024 ambulatory Som Azul MD Facility:[facility] Start: 06-28-2024 End: 06-28-2024 Bamboo flowspieter Hammonds PhD Work Phone: [facility] Start: 06-28-2024 End: 06-28-2024 Bamboo flowsheet Enrique Hammonds PhD Work Phone: [facility] Start: 06-28-2024 End: 06-28-2024 Patient encounter procedure Enrique Hammonds PhD Work Phone: [facility] Comment on above: Memory loss (Primary Dx); Concentration deficit; Word finding difficulty; Other chronic pain; Family history of dementia Start: 06-28-2024 End: 06-28-2024 ambulatory ENRIQUE HAMMONDS Not Available Start: 06-23-2024 End: 06-23-2024 ambulatory MOE H ITZKOWITZ Not Available Start: 06-23-2024 End: 06-23-2024 Office outpatient visit 15 minutes Moe H Itzkowitz DO Work Phone: [facility] Comment on above: Diarrhea, unspecifie d type (Primary Dx); Constipation, unspecified constipation type Start: 06-22-2024 End: 06-22-2024 Clinisync Result Encounter Babita Guillaume DO Work Phone: [facility] Department Unsolicited Start: 06-22-2024 End: 06-22-2024 Clinisync Result Encounter Babita Guillaume DO Work Phone: [facility] External Department Unsolicited Start: 06-22-2024 Non-patient / Non-visit Ayanna Vicente DO Work Phone: [facility] Work Phone: Start: 06-17-2024 End: 06-17-2024 Bamboo flowsheet Babita Tranett DO Work Phone: [facility] [address] Start: 06-17-2024 End: 06-17-2024 Bamboo flowsheet Babita Guillaume DO Work Phone: [facility] [address] Start: 06-17-2024 End: 06-17-2024 Office outpatient new 45 minutes Babita Guillaume DO Work Phone: [facility] [employer] [address] Comment on above: Cognitive impairment (Primary Dx); Long-term use of high-risk medication Start: 06-17-2024 End: 06-17-2024 ambulatory BABITA GUILLAUME Not Available Start: 06-15-2024 Non-patient / Non-visit Ayanna Vicente DO Work Phone: [facility] Work Phone: Start: 06-15-2024 End: 06-15-2024 ambulatory Triervin Vasquez Marker Facility:[facility] Start: 06-15-2024 End: 06-15-2024 Departed Referred Ayanna Vicente DO Work Phone: [facility] [place] [facility] Start: 06-14-2024 End: 06-14-2024 ambulatory Som Azul MD Facility: [facility] Start: 06-08-2024 End: 06-08-2024 Chart abstracting Zohaib German MD Work Phone: Rheumatology Start: 06-07-2024 End: 06-07-2024 ambulatory Som Azul MD Facility: [facility] Start: 05-26-2024 End: 05-26-2024 ambulatory AYANNA VICENTE Facility:[facility] Start: 05-26-2024 Non-patient / Non-visit Ayanna Vicente DO Work Phone: [facility] Work Phone: Start: 05-26-2024 End: 05-26-2024 Office outpatient visit 15 minutes Chad Freitas MD Work Phone: Hematology/Oncology Comment on above: CLL (chronic lymphoc ytic leukemia) (HCC) (Primary Dx) Start: 05-26-2024 End: 05-26-2024 Patient encounter procedure Ayanna Vicente DO Work Phone: [facility] Work Phone: Start: 05-26-2024 End: 05-26-2024 ambulatory Ayanna Vicente DO Work Phone: [facility] Work Phone: Start: 05-18-2024 End: 05-18-2024 Patient encounter procedure DO Ayanna Vicente Work Phone: [facility] Work Phone: Start: 05-18-2024 End: 05-18-2024 ambulatory DO Ayanna Vicente Work Phone: [facility] Work Phone: Start: 05-17-2024 End: 05-17-2024 ambulatory ZOHAIB GERMAN Facility:[facility] Start: 05-17-2024 End: 05-17-2024 Patient encounter procedure Zohaib German MD Work Phone: Rheumatology Comment on above: 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 Work Phone: Start: 05-12-2024 End: 05-12-2024 Patient encounter procedure DO Ayanna Vicente Work Phone: [facility] Work Phone: Start: 05-11-2024 End: 05-11-2024 ambulatory DO Ayanna Vicente Work Phone: [facility] Work Phone: Start: 05-11-2024 End: 05-11-2024 Patient encounter procedure DO Ayanna Vicente Work Phone: [facility] [place] Work Phone: Start: 05-06-2024 End: 05-06-2024 Patient encounter procedure DO Ayanna Vicente Work Phone: [facility] [place] Work Phone: Start: 05-06-2024 End: 05-06-2024 ambulatory DO Ayanna Vicente Work Phone: [facility] Work Phone: Start: 04-05-2024 End: 04-05-2024 ambulatory [facility] Work Phone: Start: 04-05-2024 End: 04-05-2024 Patient encounter procedure [facility] Work Phone: Start: 03-08-2024 End: 03-08-2024 ambulatory [facility] Work Phone: Start: 03-08-2024 End: 03-08-2024 Patient encounter procedure [facility] Work Phone: Start: 02-24-2024 End: 02-24-2024 ambulatory SUSAN RANDOLPH Facility: [place] Start: 02-24-2024 End: 02-24-2024 Patient encounter procedure SUSAN RANDOLPH [facility] Start: 02-05-2024 End: 02-05-2024 ambulatory [facility] Work Phone: Start: 02-05-2024 End: 02-05-2024 Patient encounter procedure [facility] [place] Work Phone: Start: 02-04-2024 Non-patient / Non-visit [facility] Work Phone: Start: 02-03-2024 End: 02-03-2024 ambulatory JAMES SMITH Not Available Start: 01-12-2024 End: 01-12-2024 ambulatory DO Ayanna Vicente Work Phone: [facility] Work Phone: Start: 01-12-2024 End: 01-12-2024 Patient encounter procedure DO Ayanna Vicente Work Phone: [facility] Work Phone: Start: 10-21-2023 End: 10-21-2023 ambulatory DO Ayanna Vicente Work Phone: [facility] Work Phone: Start: 10-21-2023 End: 10-21-2023 Patient encounter procedure DO Ayanna Vicente Work Phone: [facility] Work Phone: Start: 10-20-2023 Non-patient / Non-visit DO Aftab Vicente Work Phone: [facility] Work Phone: Start: 10-17-2023 End: 10-17-2023 ambulatory DO Ayanna Vicente Work Phone: [facility] Work Phone: Start: 10-17-2023 End: 10-17-2023 Patient encounter procedure DO Ayanna Vicente Work Phone: [facility] [place] Work Phone: Start: 10-16-2023 Non-patient / Non-visit DO Aftab id Sakina Work Phone: [facility] Work Phone: Start: 10-13-2023 Non-patient / Non-visit DO Aftab Vicente Work Phone: [facility] Work Phone: Start: 08-28-2023 Bamboo flowsheet James reis DPM Work Phone: [facility] Start: 08-28-2023 Bamboo flowsheet James reis DPM Work Phone: [facility] Start: 08-28-2023 End: 08-28-2023 Patient encounter procedure James Smith DPM Work Phone: [facility]OD[facility] Comment on above: Onychomycosis (Prima ry Dx); 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); Pain in both feet Start: 08-18-2023 End: 08-18-2023 ambulatory Homa Mckeon Other [facility] Other Start: 08-18-2023 Telephone encounter Homa BOUCHER [facility] [employer] Start: 08-12-2023 End: 08-12-2023 ambulatory Homa Mckeon Other [facility] Other Start: 08-12-2023 Office outpatient ne w 45 minutes Homa Mckeon [facility] Neurosurgery Start: 08-12-2023 End: 08-12-2023 Patient encounter procedure DO Ayanna Vicente Work Phone: [facility] Physician [facility]- Start: 07-16-2023 End: 07-16-2023 ambulatory Ayanna Vicente Other [facility] Other Start: 07-16-2023 Telephone encounter Ayanna Vicente [facility] [place] Start: 05-12-2023 End: 05-12-2023 ambulatory Junior Butterfield Other [place] Other Start: 05-12-2023 Telephone encounter Junior Butterfield [facility] Start: 05-07-2023 End: 05-07-2023 ambulatory Ayanna Vicente Other [facility] Other Start: 05-07-2023 Telephone encounter Ayanna Vicente [facility] [place] Start: 04-29-2023 End: 04-29-2023 ambulatory Ayanna Vicente Other [facility] Other Start: 04-29-2023 Telephone encounter Ayanna Vicente [facility] [place] Start: 04-25-2023 End: 04-25-2023 ambulatory Ayanna Vicente Other [facility] Other Start: 04-25-2023 Telephone encounter Ayanna Vicente [facility] [place] Start: 04-24-2023 End: 04-24-2023 ambulatory DO Ayanna Vicente Work Phone: [facility] Work Phone: Start: 04-24-2023 End: 04-24-2023 Patient encounter procedure DO Ayanna Vicente Work Phone: [facility] [place] Work Phone: Start: 04-22-2023 End: 04-22-2023 ambulatory Ayanna Vicente Other [facility] Other Start: 04-22-2023 Telephone encounter Ayanna Vicente [facility] [place] Start: 04-15-2023 End: 04-15-2023 ambulatory Ayanna Vicente Other [facility] Other Start: 04-15-2023 Office outpatient vi sit 25 minutes Ayanna Vicente [facility] [place] Start: 04-14-2023 End: 04-14-2023 ambulatory Ayanna Vicente Other [facility] Other Start: 04-14-2023 Telephone encounter Ayanna Vicente [place] Start: 04-09-2023 End: 04-09-2023 ambulatory DO Ayanna Vicente Work Phone: [facility] Work Phone: Start: 04-09-2023 End: 04-09-2023 Patient encounter procedure DO Ayanna Vicente Work Phone: [facility] [place] Work Phone: Start: 02-25-2023 End: 02-25-2023 ambulatory Ayanna Vicente Other [facility] Other Start: 02-25-2023 Office outpatient vi sit 15 minutes Ayanna Vicente [facility] Start: 02-11-2023 End: 02-11-2023 Patient encounter procedure SUSAN RANDOLPH [facility] Start: 02-07-2023 End: 02-07-2023 ambulatory Santos Lares MD Work Phone: Hematology/Oncology Comment on above: CLL (chronic lymphoc ytic leukemia) (HCC) (Primary Dx) Start: 02-07-2023 End: 02-07-2023 Patient encounter procedure Santos Lares MD Work Phone: [place] Start: 01-16-2023 End: 01-16-2023 ambulatory Ayanna Vicente Other [facility] Other Start: 01-16-2023 Telephone encounter Ayanna Vicente [place] Start: 01-15-2023 End: 01-15-2023 ambulatory Ayanna Vicente Other [facility] Other Start: 01-15-2023 Telephone encounter Ayanna Vicente [facility] Start: 01-07-2023 End: 01-07-2023 ambulatory Ayanna Vicente Other [facility] Other Start: 01-07-2023 Telephone encounter Ayanna Vicente [facility] [place] Start: 01-06-2023 End: 01-06-2023 ambulatory Ayanna Vicente Other [facility] Other Start: 01-06-2023 Telephone encounter Ayanna Vicente [facility] [place] Start: 11-29-[address] AYANNA VICENTE Facilit y:H1 Start: 10-16-2022 End: 10-16-2022 ambulatory Ayanna Vicente Other [facility] Other Start: 10-16-2022 Telephone encounter Ayanna Vicente [facility] [place] Start: 10-02-2022 End: 10-02-2022 ambulatory Ayanna Vicente Other [facility] Other Start: 10-02-2022 Telephone encounter Ayanna Vicente [facility] [place] Start: 09-30-2022 End: 09-30-2022 ambulatory DO Ayanna Vicente Work Phone: [facility] Work Phone: Start: 09-30-2022 End: 09-30-2022 Patient encounter procedure DO Ayanna Vicente Work Phone: [facility] [place] Work Phone: Start: 09-24-2022 End: 09-24-2022 ambulatory DO Ayanna Vicente Work Phone: [facility] Work Phone: Start: 09-24-2022 End: 09-24-2022 Patient encounter procedure DO Ayanna Vicente Work Phone: [facility] [address] Work Phone: Start: 09-02-2022 End: 09-02-2022 ambulatory Ayanna Vicente Other [facility] Other Start: 09-02-2022 Telephone encounter Ayanna Vicente [place] Start: 08-29-2022 End: 08-29-2022 ambulatory DO Ayanna Vicente Work Phone: [facility] Work Phone: Start: 08-29-2022 End: 08-29-2022 Patient encounter procedure DO Ayanna Vicente Work Phone: [facility] Work Phone: Start: 08-29-2022 End: 08-29-2022 Patient encounter procedure DO Ayanna Vicente Work Phone: [facility] [address] Work Phone: Start: 08-12-2022 End: 08-12-2022 ambulatory DO Ayanna Vicente Work Phone: [facility] Work Phone: Start: 08-12-2022 End: 08-12-2022 Patient encounter procedure DO Ayanna Vicente Work Phone: [facility] Work Phone: Start: 08-05-2022 End: 08-05-2022 ambulatory Ayanna Vicente Other [facility] Other Start: 08-05-2022 Telephone encounter Ayanna Vicente [facility] Start: 08-02-2022 ambulatory Ayanna Vicente Faci [id number] Start: 07-24-2022 End: 07-24-2022 ambulatory DO Ayanna Vicente Work Phone: [facility] Work Phone: Start: 07-24-2022 End: 07-24-2022 Patient encounter procedure DO Ayanna Vicente Work Phone: [facility]-Electrodiagnostics Work Phone: Start: 07-19-2022 Telephone encounter Santos justice MD Work Phone: [facility] Comment on above: Referral Information (ENT) Start: 07-19-2022 End: 07-19-2022 ambulatory Santos Lares MD Work Phone: Hematology/Oncology Comment on above: CLL (chronic lymphoc ytic leukemia) (HCC) (Primary Dx); Right ear pain; Rib pain; Axillary adenopathy; Other signs and symptoms in breast ; Encounter for screening mammogram for malignant neoplasm of breast Start: 07-19-2022 End: 07-19-2022 Patient encounter procedure Santos Lares MD Work Phone: [place] Start: 05-31-2022 End: 05-31-2022 ambulatory Ayanna Vicente Other [facility] Other Start: 05-31-2022 Telephone encounter Ayanna Vicente [facility] Start: 05-14-2022 End: 05-14-2022 ambulatory Ayanna Vicente Other [facility] Other Start: 05-14-2022 Telephone encounter Ayanna Vicente [facility] Start: 04-24-2022 End: 04-24-2022 ambulatory Ayanna Vicente Other [facility] Other Start: 04-24-2022 Telephone encounter Ayanna Vicente [facility] Start: 04-23-2022 Telephone encounter Ayanna Vicente [facility] Start: 04-23-2022 End: 04-23-2022 ambulatory DO Ayanna Vicente Work Phone: [facility] Other Start: 04-23-2022 End: 04-23-2022 Patient encounter procedure DO Ayanna Vicente Work Phone: [facility] [place] Start: 04-18-2022 End: 04-18-2022 ambulatory Santos Lares MD Work Phone: Hematology/Oncology Comment on above: CLL (chronic lymphoc ytic leukemia) (HCC) (Primary Dx) Start: 04-18-2022 End: 04-18-2022 Patient encounter procedure Santos Lares MD Work Phone: [place] Start: 04-10-2022 End: 04-10-2022 ambulatory Ayanna Vicente Other [facility] Other Start: 04-10-2022 Telephone encounter Ayanna Vicente [facility] Start: 04-05-2022 Telephone encounter Niurka Erwin Hematology/Oncology Comment on above: Care Coordination (R esults) Start: 04-04-2022 End: 04-04-2022 ambulatory Santos Lares MD Work Phone: Hematology/Oncology Comment on above: Lymphocytosis (Prima ry Dx) Start: 04-04-2022 End: 04-04-2022 Patient encounter procedure Santos Lares MD Work Phone: [place] Start: 04-02-2022 End: 04-02-2022 ambulatory Ayanna Vicente Other [facility] Other Start: 04-02-2022 Office outpatient vi sit 40 minutes Ayanna Vicente [facility] Start: 04-01-2022 End: 04-01-2022 Patient encounter procedure DO Ayanna Vicente Work Phone: [facility] [place] Start: 03-26-2022 End: 03-26-2022 ambulatory Ayanna Vicente Other [facility] Other Start: 03-26-2022 Telephone encounter Ayanna Vicente [place] Start: 03-19-2022 End: 03-19-2022 ambulatory Ayanna Vicente Other [facility] Other Start: 03-19-2022 Telephone encounter Ayanna Vicente [place] Start: 03-13-2022 End: 03-13-2022 ambulatory Ayanna Vicente Other [facility] Other Start: 03-13-2022 Telephone encounter Ayanna Vicente [facility] [place] Start: 03-08-2022 End: 03-08-2022 ambulatory Ayanna Vicente Other [facility] Other Start: 03-08-2022 Telephone encounter Ayanna Earleabbi [facility] [place] Start: 03-07-2022 End: 03-07-2022 ambulatory Ayanna Vicente Other [place] Other Start: 03-07-2022 Telephone encounter Ayanna Vicente [facility] [place] Start: 02-28-2022 End: 02-28-2022 ambulatory Ayanna Vicente Other [facility] Other Start: 02-28-2022 Telephone encounter Ayanna Vicente [facility] [place] Start: 02-21-2022 End: 02-21-2022 ambulatory Ayanna Vicente Other [facility] Other Start: 02-21-2022 Telephone encounter Ayanna Vicente [facility] [place] Start: 02-18-2022 End: 02-18-2022 ambulatory Ayanna Vicente Other [facility] Other Start: 02-18-2022 Telephone encounter Ayanna Sakina [facility] [place] Start: 02-15-2022 End: 02-15-2022 ambulatory Ayanna Vicente Other [facility] Other Start: 02-15-2022 Telephone encounter Ayanna Vicente [facility] [place] Start: 02-11-2022 End: 02-11-2022 ambulatory Ayanna Vicente Other [facility] Other Start: 02-11-2022 Telephone encounter Ayanna Vicente [facility] [place] Start: 02-06-2022 End: 02-06-2022 ambulatory Ayanna Vicente Other [facility] Other Start: 02-06-2022 Office outpatient vi sit 25 minutes Ayanna Sakina [facility] [place] Start: 01-31-2022 End: 01-31-2022 ambulatory Ayanna Vicente Other [facility] Other Start: 01-31-2022 Telephone encounter Ayanna Vicente [facility] [place] Start: 01-15-2022 End: 01-26-2022 Evaluation and management of inpatient DO Ayanna Vicente Work Phone: [facility] Start: 01-13-2022 End: 01-15-2022 Evaluation and management of inpatient DO Ayanna Vicente Work Phone: [facility] Start: 01-07-2022 End: 01-07-2022 ambulatory Ayanna Vicente Other [facility] Other Start: 01-07-2022 Telephone encounter Ayanna Vicente [facility] [place] Start: 12-27-2021 End: 12-27-2021 ambulatory Ayanna Vicente Other [facility] Other Start: 12-27-2021 Office outpatient vi sit 15 minutes Ayanna Ogabbi [facility] [place] Start: 12-19-2021 End: 12-19-2021 ambulatory Ayanna Vicente Other [facility] Other Start: 12-19-2021 Telephone encounter Ayanna Vicente [facility] [place] Start: 12-18-2021 End: 12-18-2021 ambulatory Ayanna Milner Other [facility] Other Start: 12-18-2021 Telephone encounter Ayanna Milner [facility] Start: 12-17-2021 End: 12-17-2021 ambulatory Ayanna Milner Other [facility] Other Start: 12-17-2021 Office outpatient ne w 45 minutes Ayanna Milner [facility] Start: 11-12-2021 End: 11-12-2021 ambulatory Ayanna Vicente Other [facility] Other Start: 11-12-2021 Telephone encounter Ayanna Vicente [facility] [place] Start: 10-02-2021 End: 10-02-2021 ambulatory Ayanna Vicente Other [facility] Other Start: 10-02-2021 Telephone encounter Ayanna Vicente [facility] [place] Start: 10-01-2021 End: 10-01-2021 ambulatory Ayanna Vicente Other [facility] Other Start: 10-01-2021 Telephone encounter Ayanna Vicente [facility] [place] Start: 09-17-2021 End: 09-17-2021 ambulatory Ayanna Vicente Other [facility] Other Start: 09-17-2021 Telephone encounter Ayanna Vicente [facility] [place] Start: 09-13-2021 End: 09-13-2021 ambulatory Ayanna Vicente Other [facility] Other Start: 09-13-2021 Telephone encounter Ayanna Vicente [facility] [place] Start: 09-12-2021 End: 09-12-2021 ambulatory Ayanna Vicente Other [facility] Other Start: 09-12-2021 Telephone encounter Ayanna Vicente [facility] [place] Start: 07-18-2021 End: 07-18-2021 ambulatory Ayanna Vicente Other [facility] Other Start: 07-18-2021 Telephone encounter Ayanna Vicente [facility] [place] Start: 06-18-2021 End: 06-18-2021 ambulatory Ayanna Vicente Other [facility] Other Start: 06-18-2021 Telephone encounter Ayanna Vicente [place] Start: 04-24-2021 Telephone encounter Ayanna [facility]ER [facility] Start: 04-04-2021 Office outpatient vi sit 25 minutes Ayanna Vicente [place] Start: 02-08-2021 End: 02-08-2021 Orders Only Dale [...] Work Phone: Urine culture DO Ayanna Young [employer] Work Phone: Plan of Treatment Date Care Activity Detail Author Start: 01-14-2032 Urine microalbumin profile DTaP,Tdap,Td Vaccine (2 - Td or Tdap) [facility] Start: 05-26-2027 Diabetes Screening Diabetes Screenin [facility] Start: 08-08-2026 Diabetes Screening Diabetes Screenin g [facility] Start: 02-07-2026 DIABETES SCREEN DIABETES SCREEN [facility] Start: 12-19-2025 End: 12-19-2025 Patient encounter procedure 12/19/2025 11:00 AM EDT Office Visit Rheumatology [id number] [place], [place] [id number] [place] [id number] [facility] [place] [address] Return in about 1 year (around 12/17/2025). Rheumatology Comment on above: Return in about 1 ye ar (around 12/17/2025). Start: 07-19-2025 DIABETES SCREEN DIABETES SCREEN [facility] Start: 03-14-2025 Influenza vaccination Influenza Vacc ine (#1) [facility] Start: 01-28-2025 End: 01-28-2025 Patient encounter procedure 01/28/2025 10:30 AM EDT Office Visit [facility] [address] [facility] [address] [place] [id number] Moe Betts DO [address] [facility] [address] [place] [address] [facility] Start: 11-25-2024 End: 11-25-2024 Patient encounter procedure 11/25/2024 11:20 AM EDT Office Visit [facility] [address] [facility] [address] [place] [id number] [facility] [place] [address] 6 month follow up Rheumatology Comment on above: 6 month follow up Start: 11-24-2024 End: 11-24-2024 Follow-up encounter 11/24/2024 10:30 AM EDT Visit (SP) Office Hematology/Oncology [address] [place] [address] [place] [address] Chad Freitas MD [address] [address] 6 month follow up Hematology/Oncology Comment on above: 6 month follow up Start: 11-24-2024 End: 11-24-2024 Patient encounter procedure 11/24/2024 10:15 AM EDT Office Visit [facility] [address] [place], [place] [address], [place] [address] 6 month follow up [facility] Comment on above: 6 month follow up Start: 11-15-2024 End: 11-15-2024 Patient encounter procedure 11/15/2024 11:00 AM EDT Office Visit Rheumatology [address] [facility] [place] [address] [place] [id number] [facility] [place] [address] 6 month follow up Rheumatology Comment on above: 6 month follow up Start: 11-10-2024 Patient referral [facility] Work Phone: Start: 09-16-2024 Covid-19 Vaccine ( season) Covid-19 Vaccine ( season) [facility] Start: 09-03-2024 Urine culture [facility] Start: 08-10-2024 Bacteria identified in Urine by Culture Urine Culture [facility] Start: 08-10-2024 End: 08-10-2024 Urine culture [facility] Start: 08-09-2024 End: 08-09-2024 Patient encounter procedure [facility] [address] Comment on above: Arrived Start: 08-04-2024 End: 08-04-2024 Patient encounter procedure 08/04/2024 11:30 AM EST [facility] [address] [facility] [address] [place] [phone] [facility] Start: 07-14-2024 Advance Directive Discussion Advance Directive Discussion [facility] Start: 06-28-2024 End: 06-28-2024 Patient encounter procedure [facility] Comment on above: Cognitive impairment Start: 06-23-2024 End: 06-23-2024 Patient encounter procedure 06/23/2024 2:30 PM EST Consult [facility] [address] [facility] [address] [place] [phone] Moe Betts DO [address] [facility] [address] [place] [address] [address] [facility] Start: 06-17-2024 End: 06-17-2025 Cobalamin (Vitamin B12) [Mass/volume] in Serum or Plasma Vitamin B12 Lab Routine Cognitive impairment Long-term use of high-risk medication Expected: 06/17/2024 (Approximate), Expires: 06/17/2025 [facility] Work Phone: Comment on above: Expected: 06/17/2024 (Approximate), Expires: 06/17/2025 Start: 06-17-2024 End: 06-17-2024 Patient encounter procedure 06/17/2024 2:00 PM EST Office Visit [facility] [address] [place] [id number] Babita Guillaume, [address] [place], [place] [id number] Arrived [facility] Comment on above: Arrived Start: 06-17-2024 End: 06-17-2025 Thyrotropin [Units/volume] in Serum or Plasma TSH Lab Routine Cognitive impairment Long-term use of high-risk medication Expected: 06/17/2024 (Approximate), Expires: 06/17/2025 [facility] Comment on above: Expected: 06/17/2024 (Approximate), Expires: 06/17/2025 Start: 05-11-2024 Patient referral [facility] Work Phone: Start: 05-06-2024 Bacteria identified in Urine by Culture Urine Culture [facility] Start: 04-05-2024 Patient referral [facility] Work Phone: Start: 02-05-2024 Patient referral [facility] Work Phone: Start: 11-17-2023 End: 11-17-2023 Patient encounter procedure 11/17/2023 1:15 PM EDT Procedure Visit [facility] [address] [place] [address] [place], James S, DPM [address] [place] [address] [facility] Start: 10-17-2023 Bacteria identified in Urine by Culture [facility] Start: 08-18-2023 Shingrix Vaccine (2 of 2) Rodriguez grix Vaccine (2 of 2) [facility] Start: 08-10-2023 End: 10-10-2023 CBC W Auto Differential panel - Blood CBC + DIFF Lab Routine CLL (chronic lymphocytic leukemia) ([facility]) Expected: 08/10/2023 (Approximate), Expires: 10/10/2023 [facility] Work Phone: Comment on above: Expected: 08/10/2023 (Approximate), Expires: 10/10/2023 Start: 08-10-2023 End: 10-10-2023 Comprehensive metabolic 2000 panel - Serum or Plasma COMP METABOLIC PANEL Lab Routine CLL (chronic lymphocytic leukemia) ([facility]) Expected: 08/10/2023 (Approximate), Expires: 10/10/2023 [facility] Work Phone: Comment on above: Expected: 08/10/2023 (Approximate), Expires: 10/10/2023 Start: 07-14-2023 Advance Directive Discussion Advance Directive Discussion [facility] Start: 03-14-2023 Influenza vaccination C [facility] Start: 01-16-2023 End: 03-18-2023 CBC W Auto Differential panel - Blood CBC + DIFF Lab Routine CLL (chronic lymphocytic leukemia) ([facility]) Expected: 01/16/2023 (Approximate), Expires: 03/18/2023 [facility] Work Phone: Comment on above: Expected: 01/16/2023 (Approximate), Expires: 03/18/2023 Start: 01-16-2023 End: 03-18-2023 Comprehensive metabolic 2000 panel - Serum or Plasma COMP METABOLIC PANEL Lab Routine CLL (chronic lymphocytic leukemia) ([facility]) Expected: 01/16/2023 (Approximate), Expires: 03/18/2023 [facility] Work Phone: Comment on above: Expected: 01/16/2023 (Approximate), Expires: 03/18/2023 Start: 08-19-2022 COVID-19 VACCINE (5 - Pfizer series) COVID-19 VACCINE (5 - Pfizer series) [facility] Start: 07-26-2022 End: 08-18-2023 Us breast uni real time with image limited US BREAST LTD LT Radiology Routine Axillary adenopathy Other signs and symptoms in breast Expected: 07/26/2022, Expires: 08/18/2023 [facility] Work Phone: Comment on above: Expected: 07/26/2022 , Expires: 08/18/2023 Start: 07-19-2022 End: 09-18-2022 CBC W Auto Differential panel - Blood CBC + DIFF Lab Routine CLL (chronic lymphocytic leukemia) ([facility]) Expected: 07/19/2022 (Approximate), Expires: 09/18/2022 [facility] Work Phone: Comment on above: Expected: 07/19/2022 (Approximate), Expires: 09/18/2022 Start: 07-19-2022 End: 09-18-2022 Comprehensive metabolic 2000 panel - Serum or Plasma COMP METABOLIC PANEL Lab Routine CLL (chronic lymphocytic leukemia) (HCC) Expected: 07/19/2022 (Approximate), Expires: 09/18/2022 [facility] Work Phone: Comment on above: Expected: 07/19/2022 (Approximate), Expires: 09/18/2022 Start: 07-19-2022 End: 09-18-2022 Lactate dehydrogenase [Enzymatic activity/volume] in Serum or Plasma LD LACTATE DEHYDRO Lab Routine CLL (chronic lymphocytic leukemia) (HCC) Expected: 07/19/2022 (Approximate), Expires: 09/18/2022 [facility] Work Phone: Comment on above: Expected: 07/19/2022 (Approximate), Expires: 09/18/2022 Start: 07-14-2022 ADVANCE DIRECTIVE DISCUSSION ADVANCE DIRECTIVE DISCUSSION [facility] Start: 07-14-2022 DEPRESSION ASSESSMENT DEPRESSION ASS ESSMENT [facility] Start: 04-04-2022 End: 06-04-2022 [id number] [Mass/volume] in Serum or Plasma [facility] Work Phone: Comment on above: Expected: 04/04/2022 , Expires: 06/04/2022 Start: 04-04-2022 End: 06-04-2022 Chronic hepatitis differentiation between hepatitis B and C virus panel - Serum or Plasma [facility] Work Phone: Comment on above: Expected: 04/04/2022 , Expires: 06/04/2022 Start: 04-04-2022 End: 06-04-2022 FLOW CYTOMETRY PERIPHERAL BLOOD LEUK/LYMPH (FCLEUK) [facility] Work Phone: Comment on above: Expected: 04/04/2022 , Expires: 06/04/2022 Start: 03-14-2022 Influenza vaccination INFLUENZA (#1) [facility] Start: 01-24-2022 [facility] Start: 01-21-2022 Consultation [facility] Start: 01-15-2022 Hospital admission [facility] Start: 01-15-2022 Referral to clinical fancy stitcher [facility] Start: 01-15-2022 [facility] Work Phone: Start: 01-13-2022 Hospital admission [facility] Work Phone: Start: 07-27-2021 COVID-19 VACCINE (4 - Booster for Pfizer series) COVID-19 VACCINE (4 - Booster for Pfizer series) [facility] Start: 07-14-2021 ADVANCE DIRECTIVE DISCUSSION ADVANCE DIRECTIVE DISCUSSION [facility] Start: 07-14-2021 DEPRESSION ASSESSMENT DEPRESSION ASS ESSMENT [facility] Start: 03-14-2021 Influenza vaccination INFLUENZA (#1) [facility] Start: 2007 ADVANCE DIRECTIVE DISCUSSION ADVANCE DIRECTIVE DISCUSSION [facility] Start: 2007 BONE DENSITY BONE DENSITY [facility] Start: 2007 PNEUMOCOCCAL: 65+ (1 - PCV) PNEUMOCOCCAL: 65+ (1 - PCV) [facility] Start: 2007 PNEUMOVAX AGE 65 AND OVER WITH 5YR LOOKBACK (#1) PNEUMOVAX AGE 65 AND OVER WITH 5YR LOOKBACK (#1) [facility] Start: 2007 Screening for osteoporosis Bone Density Screening [facility] Start: 1992 Screening for malign ant neoplasm of colon [facility] Start: 1992 SHINGRIX VACCINE (1 of 2) RODRIGUEZ GRIX VACCINE (1 of 2) [facility] Start: 1987 DIABETES SCREEN DIABETES SCREEN [facility] Start: 1961 SHINGRIX VACCINE (1 of 2) RODRIGUEZ GRIX VACCINE (1 of 2) [facility] Start: 1961 Urine microalbumin profile DTAP,TDAP,TD (1 - Tdap) [facility] Start: 1960 Anxiety Screening Anxiety Screening [facility] Start: 1960 Depression Screening Depression Scre ening [facility] Start: 1960 Hepatitis B surface antibody level LDL Cholesterol [facility] Start: 1960 HEPATITIS C SCREENING HEPATITIS C SC [facility] Start: 1954 Adult depression screening assessment DEPRESSION SCREENING [facility] Start: 1954 COVID-19 VACCINE (1) COVID-19 VACCIN E (1) [facility] Start: 1952 Diabetic foot examination Diabetic F oot Exam [facility] Start: 1952 Glaucoma screening Dilated Retinal E xam [facility] Start: 1952 Hepatitis B screening Urine Albumin:Creatinine Ratio [facility] Start: 1948 PNEUMOCOCCAL: 65+ (1 - PCV) PNEUMOCOCCAL: 65+ (1 - PCV) [facility] Start: 1947 Hemoglobin A1c measurement HbA1C [facility] Bacteria identified in Urine by Culture [facility] CBC W Auto Different ial panel - Blood CBC + DIFF Lab Routine Lymphocytosis 04/04/2022 11:[address] [facility] Work Phone: CBC W Auto Different ial panel - Blood COMPLETE BLOOD COUNT AND DIFFERENTIAL Lab Routine CLL (chronic lymphocytic leukemia) (HCC) 05/26/2024 2:[address] [facility] Work Phone: Comprehensive metabo lic 1999 panel - Serum or Plasma [facility] Comprehensive metabo lic 1999 panel - Serum or Plasma [facility] Comprehensive metabo lic 1999 panel - Serum or Plasma [facility] FLOW CYTOMETRY PERIP HERAL BLOOD LEUK/LYMPH (FCLEUK) FLOW CYTOMETRY PERIPHERAL BLOOD LEUK/LYMPH (FCLEUK) Lab Routine Lymphocytosis 04/04/2022 11:02 AM [facility] Work Phone: FLOW SLIDE FLOW SLIDE Lab R outine Lymphocytosis 04/04/2022 11:02 AM [facility] Work Phone: Glucose measurement estimated from glycated hemoglobin [facility] Hepatitis B virus co re Ab [Presence] in Serum HEP B CORE AB TOTAL Lab Routine Lymphocytosis 04/04/2022 11:00 AM [facility] Work Phone: Hepatitis B virus noe rface Ab [Presence] in Serum HEP B SURF AB QUAL Lab Routine Lymphocytosis 04/04/2022 11:00 AM [facility] Work Phone: Hepatitis B virus noe rface Ab [Presence] in Serum by Immunoassay HEP B SURF AG SCRN Lab Routine Lymphocytosis 04/04/2022 11:00 AM [facility] Work Phone: Hepatitis C virus Ab [Presence] in Serum HEP C AB IA W/CONF SCRN Lab Routine Lymphocytosis 04/04/2022 11:00 AM [facility] Work Phone: End: 08-18-2023 SONYA SCREENING W NEYDA SONYA SCREENING W NEYDA Radiology Routine Encounter for screening mammogram for malignant neoplasm of breast 1 Occurrences starting 07/19/2022 until 08/18/2023 [facility] Work Phone: Comment on above: 1 Occurrences starti ng 07/19/2022 until 08/18/2023 MG Breast - bilatera l Screening [facility] MG Breast - bilatera l Screening [facility] Patient Education Wrist Fracture (DC) [facility] Work Phone: Patient referral [facility] Work Phone: End: 03-10-2022 Radiologic exam knee complete 4/more views XR KNEE GENERAL 4V AP BOTH/PA BOTH/LAT/MERC BILAT Radiology Routine Pain in both knees, unspecified chronicity 1 Occurrences starting 02/08/2021 until 03/10/2022 [facility] Comment on above: 1 Occurrences starti ng 02/08/2021 until 03/10/2022 End: 03-10-2022 Radiologic examination pelvis 1/2 views XR PELVIS 1V AP Radiology Routine Pain in both knees, unspecified chronicity 1 Occurrences starting 02/08/2021 until 03/10/2022 [facility] Comment on above: 1 Occurrences starti ng 02/08/2021 until 03/10/2022 Renal function 1999 panel - Serum or Plasma [facility] Renal function 1999 panel - Serum or Plasma [facility] Serum fructosamine measurement [facility] Work Phone: Urine culture [facility] Urine culture [facility] US Kidney - bilateral [facility] XR Hip - left 2 Views [facility] XR Knee - left 4 Views [facility] End: 08-18-2023 XR RIBS/CHEST 3V AP RIB/OBLS/CXR LEFT XR RIBS/CHEST 3V AP RIB/OBLS/CXR LEFT Radiology Routine Rib pain 1 Occurrences starting 07/19/2022 until 08/18/2023 [facility] Work Phone: Comment on above: 1 Occurrences starti ng 07/19/2022 until 08/18/2023 [facility] Immunizations Immunization Date Immunization Notes Care Provider Astrid [email or web address] 03-19-2024 COVID-19 (PFIZER) 12Y and older Ayanna Vicente DO Work Phone: [facility] 03-19-2024 influenza virus vaccine, unspecified formulation SUSAN RANDOLPH [facility] 03-19-2024 influenza, high dose seasonal, preservative-free Ayanna Vicente DO Work Phone: [facility] 06-23-2023 COVID-19 (PFIZER) 12Y and older [facility] 06-23-2023 Pneumococcal Conjuga te Vaccine, 20 valent [facility] 06-23-2023 RSV, preF3, adj, pf [facility] 06-23-2023 zoster vaccine recombinant [facility] 04-15-2023 influenza, high dose seasonal, preservative-free Ayanna Vicente Other [employer] [facility] Other 04-15-2023 Fluzone QIV High-Dos e 65YR+ [facility] 04-15-2023 influenza virus vaccine, unspecified formulation James Smith DPM Work Phone: [facility] 04-22-2022 pneumococcal polysaccharide vaccine, 23 valent Ayanna Vicente Other [facility] 04-18-2022 COVID-19 mRNA Bivale nt Booster (Pfizer) [facility] 01-13-2022 tetanus toxoid, redu paola diphtheria toxoid, and acellular pertussis vaccine, adsorbed Ayanna Vicente Other [facility] 06-01-2021 COVID-19 Vaccine Pfi zer - Documentation Purposes Only Ayanna Vicente Other [facility] 04-25-2021 influenza virus vaccine, unspecified formulation SUSAN RANDOLPH [facility] 04-04-2021 influenza, high dose seasonal, preservative-free Ayanna Vicente Other [employer] Other 04-04-2021 influenza virus vaccine, unspecified formulation DO Ayanna Vicente Work Phone: [facility] 04-04-2021 Influenza, High-dose Seasonal, Quadrivalent, Preservative Free James Smith DPM Work Phone: [facility] 09-01-2020 COVID-19 Vaccine Pfi zer - Documentation Purposes Only Ayanna Vicente Other [facility] 09-01-2020 SARS-CoV-2 (COVID-19 ) mRNA-1273 vaccine SUSAN RANDOLPH [facility] 08-11-2020 COVID-19 Vaccine Pfi zer - Documentation Purposes Only Ayanna Vicente Other [facility] 08-11-2020 SARS-CoV-2 (COVID-19 ) mRNA-1273 vaccine SUSAN RANDOLPH [facility] 03-14-2020 influenza virus vaccine, unspecified formulation SUSAN RANDOLPH [facility] 07-14-2019 pneumococcal conjuga te vaccine, 13 valent [facility] 04-03-2019 influenza virus vaccine, unspecified formulation SUSAN RANDOLPH [facility] 04-03-2019 Seasonal trivalent influenza vaccine, adjuvanted, preservative free [facility] 04-03-2019 pneumococcal polysaccharide vaccine, 23 valent Ayanna Vicente Other [facility] 04-03-2019 influenza, seasonal, injectable Ayanna Vicente Other [facility] 05-25-2018 influenza virus vaccine, unspecified formulation SUSAN RANDOLPH [facility] 05-25-2018 Influenza, injectabl e, Madin Anjelica Canine Kidney, preservative free, quadrivalent [facility] 05-25-2018 influenza, seasonal, injectable Ayanna Vicente Other [facility] 04-22-2018 Kenalog -40 mg Ayanna Vicente Other [employer] Other Payers Date Payer Category Payer Self-pay [id number] 2022 Unknown [id number] 2020 Private Health Insurance [facility] [employer] SUPPLEMENT [id number] 2020-Present Indemnity [id number] 2020 Private Health Insurance [id number] 2007 Medicare MEDICARE MEDICAR E A AND B [id number] 2007-Present [place] Medicare [id number] 2007 Medicare [id number] 1.13.159.2 .[id number] 1959 Medicare [id number] 2.16.840.1.673735.19 1959 Unknown [id number] 2.16.840.1.064727.19 1942 Unknown [id number] 2.16.840.1.092662.3.579.2 .356 1942 Unknown [id number] 2.16.840.1.637583.3.579.2 .593 1942 Unknown [id number] 2.16.840.1.305178.3.579.2 .1259 1942 Unknown [id number] 2.16.840.1.974662.3.579.2 .1259 1942 Unknown [id number] 2.16.840.1.368729.3.579.2 .1259 1942 Unknown [id number] 2.16.840.1.666851.3.579.2 .1259 1942 Unknown [id number] 2.16.840.1.791541.3.579.2 .1259 1942 Unknown [id number] 2.16.840.1.191755.3.579.2 .1259 1942 Unknown [id number] 2.16.840.1.603779.3.579.2 .1259 1942 Unknown [id number] 2.16.840.1.025263.3.579.2 .727 1942 Unknown [id number] 2.16.840.1.693555.3.579.2 .727 1942 Unknown [id number] 2.16.840.1.806966.3.579.2 .727 1942 Unknown [id number] 2.16.840.1.355738.3.579.2 .727 1942 Unknown [id number] 2.16.840.1.585125.3.579.2 .196 1942 Unknown [id number] 2.16.840.1.452774.3.579.2 .196 1942 Unknown [id number] 2.16.840.1.671882.3.579.2 .196 1942 Unknown [id number] 2.16.840.1.446368.3.579.2 .196 1942 Unknown [id number] 2.16.840.1.028703.3.579.2 .196 1942 Unknown [id number] 2.16.840.1.613696.3.579.2 .196 1942 Unknown [id number] 2.16.840.1.065607.3.579.2 .196 1942 Unknown [id number] 2.16.840.1.970097.3.579.2 .196 1942 Unknown [id number] 2.16.840.1.752748.3.579.2 .196 1942 Unknown [id number] 2.16.840.1.530775.3.579.2 .196 1942 Unknown [id number] 2.16.840.1.502767.3.579.2 .196 1942 Unknown [id number] 2.16.840.1.561640.3.579.2 .196 1942 Unknown [id number] 2.16.840.1.009533.3.579.2 .196 Unknown [id number] 2.16.840.1.946189.3.579.2 .531 Unknown [id number] 2.16.840.1.887049.3.579.2 .531 Unknown [id number] 2.16.840.1.339777.3.579.2 .531 Unknown [id number] 2.16.840.1.181341.3.579.2 .531 Unknown [id number] 2.16.840.1.935239.3.579.2 .531 Unknown [id number] 2.16.840.1.879283.3.579.2 .531 Unknown [id number] 2.16.840.1.182641.3.579.2 .531 Social History Date Type Detail Facility Start: 02-20-2004 End: 12-16-2024 Tobacco smoking status NHIS Former smoker [facility] Comment on above: quit smoking in 1985 Start: 07-14-1979 End: 07-14-1999 History of tobacco use Current smoker [facility] Work Phone: Start: 02-20-2004 Alcohol intake Not Asked Renita keen [facility] Start: 1940 Sex Assigned At Not on file C [facility] Start: 02-07-2023 End: 01-12-2025 Sex Assigned At [facility] Start: 1940 Sex Assigned At Female F [facility] Start: 07-14-1979 End: 07-14-1999 History of tobacco use Cigarette Smoker [facility] Start: 04-04-2022 End: 01-12-2025 Cigarettes smoked current (pack per day) - Reported 1.5 [facility] Start: 04-04-2022 End: 12-17-2024 Tobacco use and exposure Smokeless tobacco non-user [facility] Start: 04-04-2022 End: 12-17-2024 Alcohol intake Ex-drinker (finding) [facility] Start: 03-25-2022 End: 04-18-2022 Exposure to SARS-CoV-2 (event) Not sure [facility] Adult Depression Screening Assessment 0 [facility] Comment on above: quit smoking in 1984 Start: 12-07-2022 Tobacco smoking stat [facility] Never smoked tobacco [facility] Start: 08-21-2023 End: 01-12-2025 Alcohol intake Current drinker of alcohol (finding) [facility] Start: 12-07-2022 Alcohol Comment Alcohol: 1-2 d rinks occasionally. Caffeine: 3-4 cups/day coffee [facility] Start: 05-27-2024 End: 12-16-2024 Sex Female (finding) [facility] Sexual Orientation [facility] Medical Equipment Procedure Code Equipment Code [...] ALLOGRAFT FUSELO X LUMBAR FDA Start: 03-24-2017 [place] Level Deformity FDA Start: 03-24-2017 CANCELLOUS [...] ALLOGRAFT FUSELO X LUMBAR FDA Start: 03-24-2017 [place] One Level Deformity FDA Start: 03-24-2017 CANCELLOUS [...] ALLOGRAFT FUSELO X LUMBAR FDA Start: 03-24-2017 [place] One Level Deformity FDA Start: 03-24-2017 CANCELLOUS [...] ALLOGRAFT FUSELO X LUMBAR FDA Start: 03-24-2017 [place] One Level Deformity FDA Start: 03-24-2017 CANCELLOUS [...] ALLOGRAFT FUSELO X LUMBAR FDA Start: 03-24-2017 [place] One Level Deformity FDA Start: 03-24-2017 CANCELLOUS [...] ALLOGRAFT FUSELO X LUMBAR FDA Start: 03-24-2017 [place] One Level Deformity FDA Start: 03-24-2017 CANCELLOUS [...] ALLOGRAFT FUSELO X LUMBAR FDA Start: 03-24-2017 [place] One Level Deformity FDA Start: 03-24-2017 CANCELLOUS [...] ALLOGRAFT FUSELO X LUMBAR FDA Start: 03-24-2017 [place] One Level Deformity FDA Start: 03-24-2017 CANCELLOUS [...] ALLOGRAFT FUSELO X LUMBAR FDA Start: 03-24-2017 [place] One Level Deformity FDA Start: 03-24-2017 CANCELLOUS [...] ALLOGRAFT FUSELO X LUMBAR FDA Start: 03-24-2017 [place] One Level Deformity FDA Start: 03-24-2017 CANCELLOUS [...] 03-24-2017 NUVASIVE KAREEM FDA Start: 03-24-2017 NUVASIVE KAREME FDA Start: 03-24-2017 OSTEOAMP GRANULE S 10CC FDA Start: 03-24-2017 ALLOGRAFT FUSELO X LUMBAR FDA Start: 03-24-2017 [place] One Level Deformity FDA Start: 03-24-2017 CANCELLOUS [...] ALLOGRAFT FUSELO X LUMBAR FDA Start: 03-24-2017 [place] One Level Deformity FDA Start: 03-24-2017 CANCELLOUS [...] ALLOGRAFT FUSELO X LUMBAR FDA Start: 03-24-2017 [place] One Level Deformity FDA Start: 03-24-2017 CANCELLOUS [...] ALLOGRAFT FUSELO X LUMBAR FDA Start: 03-24-2017 [place] One Level Deformity FDA Start: 03-24-2017 CANCELLOUS [...] ALLOGRAFT FUSELO X LUMBAR FDA Start: 03-24-2017 [place] One Level Deformity FDA Start: 03-24-2017 CANCELLOUS [...] ALLOGRAFT FUSELO X LUMBAR FDA Start: 03-24-2017 [place] One Level Deformity FDA Start: 03-24-2017 CANCELLOUS [...] ALLOGRAFT FUSELO X LUMBAR FDA Start: 03-24-2017 [place] One Level Deformity FDA Start: 03-24-2017 CANCELLOUS [...] ALLOGRAFT FUSELO X LUMBAR FDA Start: 03-24-2017 [place] One Level Deformity FDA Start: 03-24-2017 CANCELLOUS [...] ALLOGRAFT FUSELO X LUMBAR FDA Start: 03-24-2017 [place] One Level Deformity FDA Start: 03-24-2017 CANCELLOUS [...] ALLOGRAFT FUSELO X LUMBAR FDA Start: 03-24-2017 [place] One Level Deformity FDA Start: 03-24-2017 CANCELLOUS [...] ALLOGRAFT FUSELO X LUMBAR FDA Start: 03-24-2017 [place] One Level Deformity FDA Start: 03-24-2017 CANCELLOUS [...] ALLOGRAFT FUSELO X LUMBAR FDA Start: 03-24-2017 [place] One Level Deformity FDA Start: 03-24-2017 CANCELLOUS [...] ALLOGRAFT FUSELO X LUMBAR FDA Start: 03-24-2017 [place] One Level Deformity FDA Start: 03-24-2017 CANCELLOUS [...] ALLOGRAFT FUSELO X LUMBAR FDA Start: 03-24-2017 [place] One Level Deformity FDA Start: 03-24-2017 CANCELLOUS [...] ALLOGRAFT FUSELO X LUMBAR FDA Start: 03-24-2017 [place] One Level Deformity FDA Start: 03-24-2017 CANCELLOUS [...] ALLOGRAFT FUSELO X LUMBAR FDA Start: 03-24-2017 [place] One Level Deformity FDA Start: 03-24-2017 CANCELLOUS [...] ALLOGRAFT FUSELO X LUMBAR FDA Start: 03-24-2017 [place] One Level Deformity FDA Start: 03-24-2017 CANCELLOUS [...] ALLOGRAFT FUSELO X LUMBAR FDA Start: 03-24-2017 [place] One Level Deformity FDA Start: 03-24-2017 CANCELLOUS [...] 08-16-2024 Functional Status N/A [facility] 02-24-2024 Functional Status N/A [facility] 02-11-2023 Functional Status N/A [facility] 01-26-2022 Functional status Patient is Pro gressing Toward Baseline [facility] Work Phone: Mental Status Date Assessment Result Facility 01-26-2022 Cognitive function Cognitive Sta tus Patient at Baseline [facility] Work Phone: Clinical Notes 04-04-2021 [...] your health care provider. General instructions Take hcdo-vkt-[id number] and prescription medicines only as told by [...] provider. Document Revised: 03/19/2021 Document Reviewed: 03/19/2021 [email or web address] Patient Education 2023 RunAlong. Follow Up Care 08/16/2024 09:56:41 With:Follow up in Spring Address:Unknown When: Unknown [facility] 02-08-2025 Note Patient Education Obstetrics and [...] health care provider. General instructions ??? Take sqtr-uml-zzxcvnl and prescription medicines only as told by [...] drink, and whe (more content not included)... [facility] 01-19-2025 Telephone encounter Note Marci had an [...] to her medications. I'll see her PRN. [facility] 01-19-2025 Miscellaneous Notes Marci had [...] see her PRN. documented in this encounter [facility] 01-12-2025 History of Present illness [...] urethra 3x per week for UTI prevention, gDecide #72, 178, cm, 08/16/24 9:10:00 EST, Height/Length [...] replacement OTHER SURGICAL HISTORY 1999 fissure repair [place] REPAIR SLIDING INGUINAL HERNIA Hernia, inguinal TOTAL [...] have been made. documented in this encounter [facility] 12-17-2024 History of Present illness Narrative Images from the original note were not included. 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 There have not been any new health [...] Reviewed on 05/26/2024 Name Date COVID-19 vaccine ([employer] 03/19/2024, 06/23/2023 COVID-19 vaccine, bivalent ([employer] 04/18/2022 COVID-19 vaccine, monovalent ([employer]) 06/01/2021, 09/01/2020, 08/11/2020 Physical Exam GENERAL APPEARANCE: [...] which included preparing to see the patient, axdi-aq-caif patient care, completing clinical documentation, obtaining and/or [...] Time: 10:27 AM documented in this encounter [facility] 12-17-2024 Note HNO ID: [id number] Author: ZOHAIB GERMAN MD Service: ? 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 There have not been any new health [...] History FAMILY HISTORY (more content not included)... [facility] 12-16-2024 Evaluation note Diagnosis Onset Date [...] 2:43pm Diabetes chronic February 15 2:43pm [facility] Work Phone: 1(828) 920-287305-07-2025 Telephone encounter Note* Telephone Encounter - Susan Cabalelro - 11/17/2024 2:35 PM EDT Records faxed to Dr. Silva [phone]. I called Roxie to let her know they were faxed. [facility]05-07-2025 Miscellaneous Notes* Telephone Encounter - Susan Caballero - 11/17/2024 2:35 PM EDT Records faxed to Dr. Silva [phone]. I called Roxie to let her know they were faxed. * Telephone Encounter - Lori Renner - 11/17/2024 11:[address] Zena DREW Received a call from patient caregiver Roxie Bhagat. She stated that patient would like to cancel her upcoming appointment with Dr Paredes on 11/24 due to patient is going to be following with Dr Silva @ [facility] as this is closer to home for patient. Roxie requested to talk to medical records regarding having records sent to Dr Silva transferred call To Heather Todd. Lori Callahan [facility] Telephone encounter Note * Telephone Encounter - Lori Renner - 11/17/2024 11:[address] Zena DREW Received a call from patient caregiver Roxie Bhagat. She stated that patient would like to cancel her upcoming appointment with Dr Paredes on 11/24 due to patient is going to be following with Dr Silva @ [facility] as this is closer to home for patient. Roxie requested to talk to medical records regarding having records sent to Dr Silva transferred call To Heather Todd. Lori Callahan [facility]04-30-2025 Evaluation note* Author Ayanna Vicente [facility] Authored November 10, 2024 4:5 1pm The above note written by __ _Melanie Conde____ acting as human recorder, note dictated by Dr. Slater .I performed the above HPI, ROS, and Examination. I formulated and dictated the treatment plan and was present for entire encounter. Ayanna Vicente D.O. [facility] Work Phone: 1(586) 935-157104-30-2025 Hospital Discharge instructionsAmbulatory Orders* Referral to Hematology Time Frame: 11/10/24, Location: None Selected * Referral to Nephrology Time Frame: 11/10/24, Location: None Selected [facility] Work Phone: 1(964) 615-150902-03-2025 Hospital Discharge instructions Patient Education 08/16/2024 10:04:56 [...] provider. Document Revised: 01/28/2023 Document Reviewed: 01/28/2023 [email or web address] Patient Education 2023 RunAlong. Follow Up Care 08/11/2024 14:41:18 With:JAX BECKMAN, SUSAN Miller, URL Address: [facility] [place] [address] When:Within 6 Month(s) [facility] 02-03-2025 NotePatient Education Caregiving Antibiotic Medicine, [...] ??? You have sig (more content not included)...[facility] 08-11-2024 Evaluation note* Author Ayanna Vicente [facility] Authored August 11, 2024 1 :46pm The above note written by __ _Melanie Conde____ acting as human recorder, note dictated by Dr. Slater .I performed the above HPI, ROS, and Examination. I formulated and dictated the treatment plan and was present for entire encounter. Ayanna Vicente D.O. [facility] Work Phone: 1(677) 792-974801-27-2025 History of Present illness Narrative* Esivn Dubon NP - 08/09/2024 2:20 PM EST [...] replacement OTHER SURGICAL HISTORY 2000 fissure repair [place] REPAIR SLIDING INGUINAL HERNIA Hernia, inguinal TOTAL [...] , wrist extensors , wrist flexor , rn anesthesiology strength 5/5. LUE Strength deltoid , biceps , triceps , wrist extensors , wrist flexor , rn anesthesiology strength 5/5. RLE Strength illopsoas, quadriceps, tibialis [...] knee reflex 0. Hdz's sign negative. Coordination: Kcqkxt-ys-dxdl testing is normal Rapid alternating movements are [...] (wnl), B12 721 [place] cognitive assessment at [facility] on 06/17/2024: 30 MRI of the brain at [facility] on 07/04/18: Mild age-related changes and atrophy [...] of mental health issues documented in this [facility]12-16-2024 History of Present illness Narrative* [...] No history of alcohol/substance abuse. Reformed smoker. [place] language [place]. Completed a master's degree. 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 and currently lives alone. Because of one child living out of state. MEDICAL HISTORY/MEDICATION: Past Medical History: Diagnosis Date Hernia, inguinal History of insulin dependent diabetes mellitus IDDM History of left knee replacement History of right knee joint replacement 2010 Leukemia ([facility]) Neuropathy IDDM MEDICATIONS: Current Outpatient Medications [...] PRN incontinence, #90 tab(s), Refills(s) 3, Pharmacy: [facility], 178, cm, 02/11/23 11:43:00 EDT, Height/Length [...] of this individual. Please contact me with [employer] at [phone]. documented in this encounterCameron Regional Medical CenterTlqftrvoaj84-82-4017 History of Present illness Narrative* Moe Betts, [...] replacement OTHER SURGICAL HISTORY 1999 fissure repair [place] REPAIR SLIDING INGUINAL HERNIA Hernia, inguinal TOTAL [...] to have the scope. documented in this encounterCameron Regional Medical CenterOufzsfhgaj85-19-1983 History of Present illness Narrative* Babita Guillaume [...] replacement OTHER SURGICAL HISTORY 1999 fissure repair [place] REPAIR SLIDING INGUINAL HERNIA Hernia, inguinal TOTAL [...] , wrist extensors , wrist flexor , rn anesthesiology strength 5/5. LUE Strength deltoid , biceps , triceps , wrist extensors , wrist flexor , rn anesthesiology strength 5/5. RLE Strength illopsoas, quadriceps, tibialis [...] knee reflex 0. Hdz's sign negative. Coordination: Swoydw-ng-bivp testing and rapid alternating movements are normal Gait: Normal Review and summary of old records: [place] cognitive assessment at [facility] on 06/17/2024: Assessment/Plan Diagnoses and all [...] of mental health issues documented in this encounterCameron Regional Medical CenterClubcvbfrk12-56-7677 NoteHNO ID: [id number] Author: YOUNG HERRERA LPN Service: ? Author Type: LICENSED NURSE Type: Progress Notes Filed: 06/08/2024 13:05 Note Text: Eye exam for Plaquenil toxicity received [facility] . Exam date was 06/07/2024. Exam shows no signs of Plaquenil toxicity. Forms sent for scanning.[facility]11-26-2024 History of Present illness Narrative* Young Herrera LPN - 06/08/2024 1:05 PM EST Eye exam for Plaquenil toxicity received from [facility] . Exam date was 06/07/2024. Exam shows no signs of Plaquenil toxicity. Forms sent for scanning. documented in this encounterWvumed[facility]11-13-2024 Instructions* Patient Instructions* Chad Freitas MD - 05/26/2024 2:09 PM EST Labs today F/u in 6 months documented in this encounterWvumedicine Barnesville Hospital11-13-2024 History of Present illness Narrative* Chad Freitas MD - 05/26/2024 2:00 PM EST Images from the original note were not included. PATIENT NAME: Kathy Washburn CLINIC NO.: [id number] ATTENDING PHYSICIAN: Chad Freitas MD DATE OF [...] sweats - Did mammogram last week at [facility]. - Scheduled to see Associate Professor Of Music PAST MEDICAL HISTORY Diagnosis Date Depression Diabetes [...] Range Status 08/08/2023 2.0 % Final Abs [place] Date Value Ref Range Status 08/08/2023 0.39 [...] do not hesitate to contact me at [phone]. Chad Freitas MD Hematology/Medical Oncology [facility] spent a total of 20 minutes on the date of the service which included preparing to see the patient, xype-cy-ckjs patient care, completing clinical documentation, obtaining and/or reviewing separately obtained history, counseling and educating the patient/family/caregiver, and ordering medications, tests, or procedures. CC: Ayanna Vicente DO documented in this encounterWvumedicine Barnesville Hospital11-13-2024 NoteHNO ID: [id number] Author: CHAD FREITAS MD Service: ? Author Type: Physician Type: Progress Notes Filed: 05/26/2024 14:41 Note Text: PATIENT NAME: Kathy Washburn CLINIC NO.: [id number] ATTENDING PHYSICIAN: Chad Freitas MD DATE OF [...] sweats - Did mammogram last week at [facility]. - Scheduled to see Associate Professor Of Music PAST MEDICAL HISTORY Diagnosis Date Depression Diabetes [...] Date Value Ref Range (more content not included)...[facility] 05-17-2024 NoteHNO ID: [id number] Author: ZOHAIB GERMAN MD Service: ? Author Type: Physician Type: Progress Notes Filed: 05/17/2024 13:34 Note Text: Rheumatology Outpatient Clinic Date of Service: 05/17/2024 Patient: Kathy Washburn Medical Record: [id number] Primary Care Physician: Ayanna Vicente DO [facility] Referring Provider: No referring provider defined [...] unit/mL injection Inject subcutaneously (more content not included)...[facility]11-04-2024 History of Present illness Narrative* Zohaib German MD - 05/17/2024 12:56 PM EST Images from the original note were not included. Rheumatology Outpatient Clinic Date of Service: 05/17/2024 Patient: Kathy Washburn Medical Record: [id number] Primary Care Physician: Ayanna Vicente DO [facility] Referring Provider: No referring provider defined [...] without complication, with long-term current use of insulin([facility]) Plan Orders this visit: Office Visit [...] which included preparing to see the patient, mmba-sd-noym patient care, completing clinical documentation, obtaining and/or [...] 2024 Time: 12:56 PM documented in this encounterWvumedicine Barnesville Hospital10-29-2024 Hospital Discharge instructionsAmbulatory Orders* Referral to Neurology Time Frame: 05/11/24, Location: None Selected [facility] Work Phone: 1(197) 197-128708-26-2024 Evaluation note* Author Ayanna Vicente [facility] Authored March 08, 2024 3: 24pm The above note written by __ _Melanie Conde____ acting as human recorder, note dictated by Dr. Slater .I performed the above HPI, ROS, and Examination. I formulated and dictated the treatment plan and was present for entire encounter. Ayanna Vicente D.O. Author Ayanna [facility] Authored February 05, 2024 9:11 am The above note written by __ _Melanie Conde____ acting as human recorder, note dictated by Dr. Slater .I performed the above HPI, ROS, and Examination. I formulated and dictated the treatment plan and was present for entire encounter. Ayanna Vicente D.O. [facility] Work Phone: 1(839) 610-528308-26-2024 Evaluation note* Author Ayanna [facility] Authored March 08, 2024 3: 24pm The above note written by __ _Melanie Conde____ acting as human recorder, note dictated by Dr. Slater .I performed the above HPI, ROS, and Examination. I formulated and dictated the treatment plan and was present for entire encounter. Ayanna Vicente D.O. Author [facility] Authored April 05, 2024 10:47am The above note written by __ _Melanie Conde____ acting as human recorder, note dictated by Dr. Slater .I performed the above HPI, ROS, and Examination. I formulated and dictated the treatment plan and was present for entire encounter. Ayanna Vicente D.O. [facility] Work Phone: 1(429) 226-923108-26-2024 Evaluation note* Author Ayanna [facility] Authored March 08, 2024 3: 24pm The above note written by __ _Melanie Conde____ acting as human recorder, note dictated by Dr. Slater .I performed the above HPI, ROS, and Examination. I formulated and dictated the treatment plan and was present for entire encounter. Ayanna Vicente D.O. Author [facility] Authored May 11, 2024 3 :30pm The above note written by __ _Melanie Conde____ acting as human recorder, note dictated by Dr. Slater .I performed the above HPI, ROS, and Examination. I formulated and dictated the treatment plan and was present for entire encounter. Ayanna Vicente D.O. Author [facility] Authored April 05, 2024 10:47am The above note written by __ _Melanie Conde____ acting as human recorder, note dictated by Dr. Slater .I performed the above HPI, ROS, and Examination. I formulated and dictated the treatment plan and was present for entire encounter. Ayanna Vicente D.O. [facility] Work Phone: 1(150) 239-407408-26-2024 Evaluation note* Author Ayanna [facility] Authored March 08, 2024 2: 24pm The above note written by __ _Melanie Conde____ acting as human recorder, note dictated by Dr. Slater .I performed the above HPI, ROS, and Examination. I formulated and dictated the treatment plan and was present for entire encounter. Ayanna Vicente D.O. Author [facility] Authored May 11, 2024 2 :30pm The above note written by __ _Melanie Conde____ acting as human recorder, note dictated by Dr. Slater .I performed the above HPI, ROS, and Examination. I formulated and dictated the treatment plan and was present for entire encounter. Ayanna Vicente D.O. Author [facility] Authored April 05, 2024 9:47am The above note written by __ _Melanie Conde____ acting as human recorder, note dictated by Dr. Slater .I performed the above HPI, ROS, and Examination. I formulated and dictated the treatment plan and was present for entire encounter. Ayanna Vicente D.O. [facility] Work Phone: 1(285) 339-334708-13-2024 Hospital Discharge instructions Patient Education 02/24/2024 10:42:26 [...] your health care provider. General instructions Take bicj-ujw-bzyxjkm and prescription medicines only as told by [...] provider. Document Revised: 03/19/2021 Document Reviewed: 03/19/2021 [email or web address] Patient Education 2022 RunAlong. Follow Up Care 02/11/2023 12:11:14 With:JAX BECKMAN, SUSAN Miller, URL Address: [address] [place] [id number] When: Unknown Comments:6 mos (no labs) [facility] 08-13-2024 NotePatient Education Obstetrics and Gynecology [...] health care provider. General instructions ? Take jjjx-wbr-pcyjbdc and prescription medicines only as told by [...] help your health care (more content not included)...[facility]07-25-2024 Evaluation note* Author Ayanna Vicente [facility] Authored February 05, 2024 9:11 am The above note written by __ _Melanie Conde____ acting as human recorder, note dictated by Dr. Slater .I performed the above HPI, ROS, and Examination. I formulated and dictated the treatment plan and was present for entire encounter. Ayanna Vicente D.O. [facility] Work Phone: 1(894) 335-685204-09-2024 Evaluation note* Author Ayanna Vicente [facility] Authored October 21, 2023 4:11 pm The above note written by __ _Melanie Conde____ acting as human recorder, note dictated by Dr. Slater .I performed the above HPI, ROS, and Examination. I formulated and dictated the treatment plan and was present for entire encounter. Ayanna Vicente D.O. [facility] Work Phone: 1([phone]) 944-857302-15-2024 History of Present illness Narrative* James Smith [...] open areas were noted. documented in this encounterCameron Regional Medical CenterGaxtjanbeh15-76-1346 Evaluation note* Encounter Date Diagnosis Assessment Notes [...] sacroiliac steroidal injection. Refer the patient to [facility] for aqua therapy. Discuss with primary care physician, Dr. Vicente, about prescribing a steroid prednisone for temporary relief during the patient's cruise, in the event unable to see painmanagment before vacation. Order a lidocaine patch for the patient to use on the sacroiliac and hip area for pain relief.Recommend fiss-rtm-bvzstwo Thermacare or heat patches to use alongside the lidocaine patch. 3. 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 Monitor the degeneration and consider a preventative approach. Encourage the patient to take Tylenol arthritis for overall help. 4. Bone density: - Plan: Dexa scan within normal limits. Jul, Pain in left hip (ICD-10 - M25.552) Jul, Sacroiliac inflammation (ICD-10 - M46.1) Jul, Cervical pain (ICD-10 - M54.2) Jul, DDD (degenerative disc disease), lumbar (ICD-10 - M51.36) [facility] Other 01-03-2024 Evaluation note* Encounter Date Diagnosis [...] She will continue to monitor her memory. [facility] Other 10-03-2023 Evaluation note* Encounter Date Diagnosis [...] s he has about immunizations were answered. [facility] Other 10-02-2023 Evaluation note* Encounter Date Diagnosis Assessment Notes Treatment Notes Treatment Clinical Notes Apr, Insomnia (ICD-10 - G47.00) Apr, Neuropathy (ICD-10 - G62.9) [facility] Other 08-15-2023 Evaluation note* Encounter Date Diagnosis [...] Feb, Lumbar disc disease (ICD-10 - M51.9) [facility] Other 08-01-2023 Hospital Discharge instructions Patient Education [...] your health care provider. General instructions Take ooct-kev-rmoxxna and prescription medicines only as told by [...] provider. Document Revised: 03/19/2021 Document Reviewed: 03/19/2021 [email or web address] Patient Education 2022 RunAlong. Follow Up Care 01/23/2023 15:26:59 With:JAX BECKMAN, SUSAN Miller, URL Address: [address] [place] [place] [address] When: Unknown [facility] 07-28-2023 History of Present illness Narrative* Santos Lares MD - 02/07/2023 1:38 PM EDT Images from the original note were not included. PATIENT NAME: Kathy Washburn CLINIC NO.: [id number] ATTENDING PHYSICIAN: Santos Lares MD DATE OF [...] Range Status 07/19/2022 5.0 % Final Abs [place] Date Value Ref Range Status 07/19/2022 0.84 [...] do not hesitate to contact me at [phone]. Santos Lares MD Hematology/Medical Oncology [facility] spent a total of 30 minutes on the date of the service which included preparing to see the patient, ardm-vp-tbzs patient care, completing clinical documentation, obtaining and/or reviewing separately obtained history, counseling and educating the patient/family/caregiver, and ordering medications, tests, or procedures. CC: Ayanna Vicente DO documented in this encounterWvumedicine [facility]06-27-2023 Evaluation note* Encounter Date Diagnosis Assessment [...] Dec, Other 1:43 PM - 1:59 PM [facility] Other 06-26-2023 Evaluation note* Encounter Date Diagnosis Assessment Notes Treatment Notes Treatment Clinical Notes Dec, Hyperlipidemia (ICD-10 - E78.5) [facility] Other 04-05-2023 Evaluation note* Encounter Date Diagnosis Assessment Notes Treatment Notes Treatment Clinical Notes Oct, Neuropathy (ICD-10 - G62.9) [facility] Other 03-22-2023 Evaluation note* Encounter Date Diagnosis Assessment Notes Treatment Notes Treatment Clinical Notes Sep, Insomnia (ICD-10 - G47.00) [facility] Other 03-22-2023 Evaluation note* Encounter Date Diagnosis [...] to see her blood sugars below 90. [place] sugar readings are in the 120's. She [...] discussion for her to have with her first helper. Sep, Insomnia (ICD-10 - G47.00) We discussed [...] has not driven past any local towns ([place], [place]). She did have a cardiac work up [...] abuse treatments are being prescribed. Sep, Other jail (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 therapy (ICD-10 - Z79.899) Sep, [...] had an MRI of her neck done. [facility] Other 01-09-2023 Miscellaneous Notes* Telephone Encounter - [...] RN * Telephone Encounter - Susan Todd [facility] - 07/19/2022 2:21 PM EST Records faxed to Dr. Ly. * Telephone Encounter - Susana Grant - 07/19/2022 1:21 PM EST Referral to Dr. Ly for Right ear pain. Heather/Royer: Can you please send information and follow up? Manuel Romero put information in your mailbox forreferral. Thank you! Susana Liaoashley documented in this encounterWvumedicine [facility]ville Hospital01-06-2023 History of Present illness Narrative* Santos Lares MD - 07/19/2022 12:34 PM EST PATIENT NAME: Kathy Washburn CLINIC NO.: [id number] ATTENDING PHYSICIAN: Santos Lares MD DATE OF [...] 11.45 (H) 1.00 - 4.00 k/uL Final [place]% Date Value Ref Range Status 07/19/2022 5.0 % Final Abs [place] Date Value Ref Range Status 07/19/2022 0.84 [...] do not hesitate to contact me at [phone]. Santos Lares MD Hematology/Medical Oncology [facility] spent a total of 30 minutes on the date of the service which included preparing to see the patient, wluo-sm-jjje patient care, completing clinical documentation, obtaining and/or reviewing separately obtained history, counseling and educating the patient/family/caregiver, and ordering medications, tests, or procedures. Medical Decision Making: Medical Decision Making Level: 1 - N/A CC: Ayanna Vicente DO documented in this encounterWvumedicine Barnesville Hospital01-06-2023 Nurse Note* Lluvia Samuel MA - 07/19/2022 12:20 PM EST Patient would like to ask you about her right ear, it is painful to touch, her head also hurts and also has Left side pain. Lluvia Samuel MA documented in this encounterWvumedicine [facility] Hospital11-18-2022 Evaluation note* Encounter Date Diagnosis Assessment Notes Treatment Notes Treatment Clinical Notes May, Cystitis (ICD-10 - N30.90) [facility] Other 10-11-2022 Evaluation note* Encounter Date Diagnosis Assessment Notes Treatment Notes Treatment Clinical Notes Apr, BMI 31.0-31.9,adult (ICD-10 - Z68.31) [facility] Other 10-06-2022 History of Present illness Narrative* Santos Lares MD - 04/18/2022 11:59 AM EDT PATIENT NAME: Kathy Washburn [facility] NO.: [id number] ATTENDING PHYSICIAN: Santos Lares MD DATE OF [...] 9.37 (H) 1.00 - 4.00 k/uL Final [place]% Date Value Ref Range Status 04/04/2022 5.0 % Final Abs [place] Date Value Ref Range Status 04/04/2022 0.67 [...] do not hesitate to contact me at [phone]. Santos Lares MD Hematology/Medical Oncology [facility] I spent a total of 30 minutes on the date of the service which included preparing to see the patient, oljo-mn-vuxa patient care, completing clinical documentation, obtaining and/or reviewing separately obtained history, counseling and educating the patient/family/caregiver, and ordering medications, tests, or procedures. Medical Decision Making: Medical Decision Making Level: 1 - N/A CC: Ayanna Vicente DO documented in this encounterWvumedicine [facility] Hospital09-28-2022 Evaluation note* Encounter Date Diagnosis Assessment Notes Treatment Notes Treatment Clinical Notes Mar, Neuropathy (ICD-10 - G62.9) [facility] Other [id number] Miscellaneous Notes* Telephone Encounter - Santos Lares MD - 04/05/2022 5:06 PM EDT Spoke to the patient and answered her questions * Telephone Encounter - Niurka Hood RN - 04/05/2022 4:08 PM EDT Pt notified and verbalizes understanding. Pt would like to speak w/ you before her next appointment. Asks that you call her @ [phone] when you have time. Thanks! Niurka Hood [...] no one picked up documented in this encounterWvumedicine Barnesville Hospital09-22-2022 History of Present illness Narrative* Santos Lares MD - 04/04/2022 11:32 AM EDT PATIENT NAME: Kathy Washburn CLINIC NO.: [id number] ATTENDING PHYSICIAN: Santos Lraes MD DATE OF SERVICE: April 04, 2022 [...] ago. Has a son who lives in [place]. She does not smoke nor drink heavily. [...] Santos Lares M.D. Hematology/Medical Oncology [facility] [phone] CC: Ayanna Vicente DO documented in this encounterWvumedicine [facility]ville Hospital09-20-2022 Evaluation note* Encounter Date Diagnosis Assessment [...] hurt. She has not followed with any orthopedic designer. She saw Dr. Akins in the hospital [...] would like to refer her to a wig sales consultant for evaluation, and she agrees. A referral [...] if needed. She can also see a appliance painter and refinisher to discuss injections. She voices that she saw Dr. Guillaume in the past for migraines and would like to see Dr. Morales for evaluation. For now she will try to take the pain medication more often and see if this provides her with better relief and will continue to monitor. I will refer her to Dr. Morales for evaluation. Mar, Other jail (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 therapy (ICD-10 - Z79.899) Mar, [...] to get this until seen by the wig sales consultant. She voices understanding. Mar, Encounter for screening [...] find out where Dr. Milner went in [place] and then will refer her back to Dr. Milner to discuss a colonoscopy. Mar, Weight loss (ICD-10 - R63.4) She has lost 1.5 pounds since last seen. [facility] Other 09-06-2022 Evaluation note* Encounter Date Diagnosis Assessment Notes Treatment Notes Treatment Clinical Notes Mar, Diabetes type 2, uncontrolled (ICD-10 - E11.65) Mar, Hypertension (ICD-10 - I10) Mar, Neuropathy (ICD-10 - G62.9) [facility] Other 08-26-2022 Evaluation note* Encounter Date Diagnosis Assessment Notes Treatment Notes Treatment Clinical Notes Feb, Diabetes type 2, uncontrolled (ICD-10 - E11.65) [facility] Other 07-27-2022 Evaluation note* Encounter Date Diagnosis [...] Ambien, she is taking Melatonin. 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 [facility] Other 06-27-2022 Evaluation note* Encounter Date Diagnosis Assessment Notes Treatment Notes Treatment Clinical Notes Dec, Dysphagia (ICD-10 - R13.10) [facility] Other 06-27-2022 Evaluation note* Encounter Date Diagnosis Assessment Notes Treatment Notes Treatment Clinical Notes Dec, Other spondylosis with radiculopathy, lumbar region (ICD-10 - M47.26) [facility] Other 06-16-2022 Evaluation note* Encounter Date Diagnosis [...] M20.42) Dec, Foot deformity (ICD-10 - M21.969) [facility] Other 06-08-2022 Evaluation note* Encounter Date Diagnosis Assessment Notes Treatment Notes Treatment Clinical Notes Dec, Peripheral edema (ICD-10 - R60.9) [facility] Other 06-06-2022 Evaluation note* Encounter Date Diagnosis Assessment Notes Treatment Notes Treatment Clinical Notes Dec, History of colon polyps (ICD-10 - Z86.010) Dec, Irritable bowel syndrome with diarrhea (ICD-10 - K58.0) MAY USE IMODIUM NEEDED PT TO REPORT PROGRESS [facility] Other 05-02-2022 Evaluation note* Encounter Date Diagnosis Assessment Notes Treatment Notes Treatment Clinical Notes November, Cystitis (ICD-10 - N30.90) [facility] Other 03-22-2022 Evaluation note* Encounter Date Diagnosis [...] when she came home from traveling from [place] last week she had congestion and was coughing alot, she had alot of irritation in her throat and the back of her throat. She feels like someone put a bullet in her throat. She took a decongestant yesterday and feels better today. 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 I did recommend that she have [...] that she was able to travel to [place] last week on her own for the first time by herself with her back issues and did well. She did have to use a wheelchair. She did need a wheelchair while in the airport. An [place] report was reviewed, no discrepancies noted. Frequent appointments needed due to addiction potential. [facility]. She voices that she never got a call back from that center and did not pursue this because she got involved with a urologist then developed bowel issues. She voices that she will follow up with the [facility] and Dr. Regan for this issue. [...] Sep, Other 2:54 PM - 3:20 PM [facility] Other 03-21-2022 Evaluation note* Encounter Date Diagnosis Assessment Notes Treatment Notes Treatment Clinical Notes Sep, Cough (ICD-10 - R05.9) [facility] Other 03-03-2022 Evaluation note* Encounter Date Diagnosis [...] I did recommend that she see a gravity meter observer for evaluation to discuss these issues further, [...] She agrees but she is going to [place] on 09-19-21 and will not return until [...] with the Imodium until she returns from [place] and is seen by Dr. Milner. She [...] Sep, Other 9:29 AM - 9:49 AM [facility] Other 01-05-2022 Evaluation note* Encounter Date Diagnosis Assessment Notes Treatment Notes Treatment Clinical Notes Jul, Neuropathy (ICD-10 - G62.9) [facility] Other 12-06-2021 Evaluation note* Encounter Date Diagnosis [...] refer her to the spine center in [place] but she did not pursue this. We [...] - N30.90) She currently follows with a facility service manager. She also saw Dr. Redding for evaluation and he did a procedure on her bladder to help with bladder leakage, she was supposed to see him again but he was sick so she is trying to get in to see either him or another doctor such as Dr. Peterson or Dr. Gleason, she does not want to see his PA or RECONSTRUCTIVE SURGEON. She gets a pain in her vaginal area, describes it as a cut but now it feels as if it is going up higher. When she went to dip stand loader protestant yesterday she felt like someone cut her [...] Jun, Other 2:53 PM - 3:23 PM Remerge Other 10-12-2021 Evaluation note* Encounter Date Diagnosis Assessment Notes Treatment Notes Treatment Clinical Notes Apr, Neuropathy (ICD-10 - G62.9) Remerge Other 09-22-2021 Evaluation note* Encounter Date Diagnosis [...] Dr. Regan is referring her to the [facility] spine center and she is seeing [...] the kidneys. She has never seen a wall crane operator before. Her BUN is 40. Creatinine is [...] 6.2. We discussed referring her to a wig sales consultant for evaluation and to discuss this further but instead we will repeat lab in one month and if her level is this high or higher then we will do a referral through the [facility] in [place]. Mar, Knee pain (ICD-10 - M25.569) She [...] attending physical therapy and will see the [facility] soon. Mar, Weight loss (ICD-10 - R63.4) She has lost 5.5 pounds since last seen. She voices that she is trying to lose weight slowly. Encouraged her to continue with what she is doing. Remerge Other Evaluation + Plan note Future Appointments Appointment Date:02/24/2024 10:00:00 AM Scheduled Provider:SUSAN RANDOLPH PA-C Location:[facility] Appointment Type:URO Office Visit [facility] evaluation + Plan note Future Appointments Appointment Date:02/14/2025 01:20:00 PM Scheduled Provider:SUSAN RANDOLPH PA-C Location:[facility] Appointment Type:URO Office Visit [facility] evaluation + Plan note Future Appointments Appointment Date:10/27/2025 10:20:00 AM Scheduled Provider:JOSE Stewart APRN, [place] [facility] Location:[facility] Appointment Type:URO Office Visit [facility] evaluation note* Diagnosis Pain in both knees, unspecified chronicity- Primary [facility] Other Evaluation note* Diagnosis Onset Date Resolution Status Abrasion acute Acute hypotension acute Acute UTI acute TIP (acute kidney injury) ac nez perce Contusion of leg, right acut e Fall [...] fracture acute Diabetes chronic Hypertension chronic Hypothyroidism [facility] Work Phone: Evaluation note* Diagnosis Lymphocytosis- Primary Lymphocytosis (symptomatic) [facility] Diagnosis CLL (chronic lymphocytic leukemia) (HCC)- Primary Chronic lymphoid leukemia, without mention of having achieved remission [facility] Diagnosis Onset Date Resolution Status Acute UTI acute Chronic back pain acute Depression acute Diabetic neuropathy acute Fall acute Hematoma of right lower leg acute Impaired mobility and activities of daily living acute Minor closed head injury acu te Right wrist fracture acute Diabetes chronic Hypertension chronic Hypothyroidism [facility] Work Phone: Evaluation note* Diagnosis CLL (chronic lymphocytic leukemia) (HCC)- Primary Chronic lymphoid leukemia, without mention of having achieved remission Right ear pain Otalgia, unspecified Rib pain Chest pain, unspecified Axillary adenopathy Enlargement of lymph nodes Other signs and symptoms in breast Encounter for screening mammogram for malignant neoplasm of breast Other screening mammogram [facility] noteNo assessment information [facility] Work Phone: Evaluation note* Diagnosis CLL (chronic lymphocytic leukemia) (HCC)- Primary Chronic lymphoid leukemia, without mention of having achieved remission [facility]* Diagnosis Onychomycosis- Primary Dermatophytosis of nail 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) Pain in both feet [facility] Diagnosis Onset Date Resolution Status Chronic lymphocytic leukemia acute Cystitis acute Diabetes type 2, uncontrolled acute Lumbar disc disease with radiculopathy acute Neuropathy acute Other abnormal blood chemistry acute Other jail (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 therapy acute Peripheral edema acute HLD (hyperlipidemia) chronic Hypertension chronic Hypothyroidism chronic Insomnia chronic [facility] Work Phone: Evaluation note* Diagnosis Onset Date Resolution Status Right otitis media acute Cystitis acute Diabetes type 2, uncontrolled acute Other spondylosis with radiculopathy, lumbar region acute Rheumatism acute Insomnia chronic [facility] Work Phone: Evaluation note* Diagnosis Primary osteoarthritis involving multiple joints- Primary Fibromyalgia Mylagia and myositis, unspecified Type 2 diabetes mellitus without complication, with long-term current use of insulin ([facility]) [facility] Diagnosis CLL (chronic lymphocytic leukemia) ([facility])- Primary Chronic lymphoid leukemia, without mention of having achieved remission [facility] Diagnosis Cognitive impairment- Primary Unspecified persistent mental disorders due to conditions classified elsewhere Long-term use of high-risk medication documented in this encounter [facility]* Diagnosis Diarrhea, unspecified type- Primary Constipation, unspecified constipation type documented in this encounter [facility] HealthcareEvaluation note* Diagnosis Memory loss- Primary Concentration deficit Word finding difficulty Other chronic pain Family history of dementia Family history of other neurological diseases [facility]* Diagnosis Cognitive impairment- Primary Unspecified persistent mental disorders due to conditions classified elsewhere documented in this encounter [facility] HealthcareEvaluation note* Diagnosis Onset Date Resolution Status Admit Date Cystitis acute August 11, 2024 1:16pm Irritable bowel syndrome wit h diarrhea acute August 11 1:16pm Other spondylosis with radiculopathy, lumbar region acute Jason uary 2024 1:16pm [facility] Work Phone: Evaluation note* Diagnosis Onset [...] 2024 3:41pm Hypothyroidism chronic October 3:41pm [facility] Work Phone: Evaluation note* Diagnosis Fibromyalgia- Primary Mylagia and myositis, unspecified Primary osteoarthritis involving multiple joints Type 2 diabetes mellitus without complication, with long-term current use of insulin (HCC) Long-term use of Plaquenil Encounter for long-term (current) use of other medications [facility] Diagnosis Diarrhea, unspecified type- Primary [...] yearl y Medical History 08-22-2011 Left femur [facility] Medical History - Chest x-ray [facility] Medical History stress test-normal ([facility]) Medical History [...] on polyps - Hospitalization History see above Remerge Other History general Narrative - Reported* Type Description Date Medical History pelvic exam done Medical History 2008 mammogram-normal Medical History 2009 colonoscopy Medical History 2003 CT scan done Medical History 2007 eye exam Medical History Zostavax done Medical History Flu/H1N1 vaccine Medical History mammogram Medical History -2010 DEXA scan Medical History Follows with Dr. Roxane rivera y Medical History 08-22-2011 Left femur [facility] Medical History 08-22-2011 Chest x-ray [facility] Medical History stress test-normal ([facility]) Medical History [...] head lacera tion after a fall 01/13/22 Rem[facility] Other Hiswilu general Narrative - Reported* Type Description Date Medical History pelvic exam done Medical History 2009 mammogram-normal Medical History 2009 colonoscopy Medical History 2003 CT scan done Medical History 2007 eye exam Medical History Zostavax done Medical History Flu/H1N1 vaccine Medical History mammogram Medical History DEXA scan Medical History Follows with Dr. Betts yearcar y Medical History 08-22-2011 Left femur [facility] Medical History 08-22-2011 Chest x-ray [facility] Medical History stress test-normal ([facility]) Medical History [...] head lacera tion after a fall 01/13/22 [facility] Other [place] general Narrative - Reported* Type Description Date Medical History pelvic exam done Medical History 2008 mammogram-normal Medical History 2008 colonoscopy Medical History 2003 CT scan done Medical History 2007 eye exam Medical History Zostavax done Medical History Flu/H1N1 vaccine Medical History -2010 mammogram Medical History -2010 DEXA scan Medical History Follows with Dr. Betts yearl y Medical History - Left femur [facility] Medical History 08-22-2011 Chest x-ray [facility] Medical History stress test-normal ([facility]) Medical History [...] head lacera tion after a fall 01/13/22 Remerge Other Hospital course Narrative No data available for this section [facility] Work Phone: Hospital Discharge instructionsAmbulatory Orders* Referral to Sleep Medicine Time Frame: 02/05/24, Location: None [facility] Work Phone: Hospital Discharge instructionsAmbulatory Orders* Referral to General Surgery Time Frame: 04/05/24, Location: None [facility] Work Phone: Progress note No data available for this section [facility] Wilda reason for referral (narrative)* Diagnostic Procedure Only (Routine) Status Reason Specialty Diagnoses / Procedures Referred By Contact Referred To Contact Pending Review Auto-Generated Referral XR IMAGING Diagnoses Pain in both knees, unspecified chronicity Procedures XR PELVIS 1V AP X-RAY PELVIS AP ONLY Dale Espinoza PA-C [address] [address] Xr Imaging * Diagnostic Procedure Only (Routine) Status Reason Specialty Diagnoses / Procedures Referred By Contact Referred To Contact Pending Review Auto-Generated Referral XR IMAGING Diagnoses Pain in both knees, unspecified chronicity Procedures XR KNEE GENERAL 4V AP BOTH/PA BOTH/LAT/MERC BILAT KNEE AP-WGT/LAT/MERCHA NT Dale Espinoza PA-C [address] [place] [address] Xr Imaging [facility] for referral (narrative)* Diagnostic Procedure Only (Routine) - Pending Review Specialty Diagnoses / Procedures Referred By Selin vasquez Referred To Contact BR IMAGING Diagnoses Encounter for screening mammogram for malignant neoplasm of breast Procedures SONYA SCREENING W NEYDA SCREENING DIGITAL BREAST TOMOSYNTHESIS BI SCREENING MAMMOGRAPHY BI 2-VIEW BREAST INC CAD Santos Lares MD [address] [place] [address] [facility] [address] [place] [address] Referral ID Status Reason Start Date Expiration Date Visits Requested Visits Authorized [id number] Pending Review Auto-Generat ed Referral 07/19/2022 08/18/2023 1 1 * Diagnostic Procedure Only (Routine) - Pending Review Specialty Diagnoses / Procedures Referred By Contac t Referred To Contact BR IMAGING Diagnoses Axillary adenopathy Other signs and symptoms in breast Procedures US BREAST LTD LT US BREAST UNI REAL TIME WITH IMAGE LIMITED Santos Lares MD [address] [place] [address] [facility] [address] [place] [address] Referral ID Status Reason Start Date Expiration Date Visits Requested Visits Authorized [id number] Pending Review Auto-Generat ed Referral 07/26/2022 08/18/2023 1 1 * Diagnostic Procedure Only (Routine) - Pending Review Specialty Diagnoses / Procedures Referred By Contac t Referred To Contact XR IMAGING Diagnoses Rib pain Procedures XR RIBS/CHEST 3V AP RIB/OBLS/CXR LEFT RADEX RIBS UNI W/POSTEROANT CH MINIMUM 3 VIEWS Santos Lares MD [address] [place] [address] Xr Imaging Referral ID Status Reason Start Date Expiration Date Visits Requested Visits Authorized [id number] Pending Review Auto-Generat ed Referral 07/19/2022 08/18/2023 1 1 * Consult, Test, Treat (Routine) - Authorized Specialty Diagnoses / Procedures Referred By Contac t Referred To Contact Ent - Otolaryngology Diagnoses Right ear pain Procedures CONSULT TO ENT OFFICE/OUTPATIENT [facility] 60-74 MINUTES Santos Lares MD [address] [place] [address] Referral ID Status Reason Start Date Expiration Date Visits Requested Visits Authorized [id number] Authorized PCP Requested Referral 07/19/2022 07/19/2023 1 1 [facility] for referral (narrative)* Reason appt pt needs cons ult to see Homa Mckeon /Dr. Corea for evaluation of lumbar pain Diagnosis 1 Other spondylosis wi th radiculopathy, lumbar region (M47.26) Referral Organization [facility] Wilda Referring Provider First Name Ayanna Referring Provider Last Name Sakina Referring Provider Specialty Family Prac art Referred Organization [facility] urosurgery Referred Provider MckeonHoma Referred Address [address],[address] Referred Provider Specialty Nurse Uli cotto Referral Priority Routine General Notes Nereyda Sanchez 04/15/2023 03:33:35 PM > referral sent p2p. pt understands she will be contacted to schedule this appt [facility] Other reason for referral (narrative)No reason for referral information availableSt. [facility] Work Phone: Reason for visit Narrativereview labs, refill medication, discuss multiple issues, see treatment plan for further information [facility] Other reason for visit NarrativePT HERE AT REQUEST OF DR VICENTE FOR EVALUATION AND TREATMENT OF CHANGE IN STOOL HABITS AND HISTORY OF IRRITABLE BOWEL SYNDROME AND COLON POLYPS, REFERRAL NOTE RECEIVEDNoTexas Energy Network [facility] Other Rehoxj for visit Narrativereview labs/med refill, discuss multiple issues see treatment planNofreeman [facility] Other Reymyu for visit NarrativeNeurosurgery Referral Update Remerge Other reason for visit Narrative* Consultation (Routine) - Closed Specialty Diagnoses / Procedures Referred By Selin vasquez Referred To Contact Neurology Diagnoses Other amnesia Procedures [place] OFFICE/OUTPATIENT [facility] 30 MINUTES Ayanna Vicente MD [address] [place] [address] Phone: tel: fax: Babita Guillaume DO [address] [place] [address] Phone: tel: fax: Referral ID Status Reason Start Date Expiration Date V isits Requested Visits Authorized [id number] Closed Consult and Treat 05/21/2024 11/17/2024 1 1 [facility] Narrative* Consultation (Routine) - Closed Specialty Diagnoses / Procedures Referred By Contfelipa t Referred To Contact Psychology Diagnoses Cognitive impairment Procedures [place] OFFICE/OUTPATIENT [facility] Babita Guillaume DO [address] [place] [address] Phone: tel: fax: Enrique Hammonds, PhD [address] [address] Phone: tel: fax: Referral ID Status Reason Start Date Expiration Date V isits Requested Visits Authorized [id number] Closed Specialty Services Required 06/17/2024 12/14/[address] [facility] Healthcare Summary Purpose Family History No [...] in right hip (M 25.551) Referral Organization [facility] urosurgery Referring Provider First Name Homa Referring Provider Last Name Mike Referring Provider Specialty Nurse Pract itioner Referred Organization [facility] Referred Provider Bonnie Slade Referred Address [address] [place], [place],[address] Referred Provider Specialty Pain Medicin e Referral Priority Routine General Notes Susan Ugarte 04:33:20 PM >received today, holding referral for todays visit note to be locked Reason evaluate and t reat for hip pain Diagnosis 1 Pain in right hip (M 25.551) Referral Organization [facility] urosurger Referring Provider First Name Homa Referring Provider Last Name Mike Referring Provider Specialty Nurse Pract itioner Referred Organization [facility] Ortho pedics Referred Provider Gume Macedo Referred Address [address] [facility],[address] Referred Provider Specialty Orthopedic S urgery Referral Priority Routine General Notes Susan Ugarte 04:34:14 PM >received today, sending p2p at this time for scheduling Reason Aqua therapy - evalu ate and treat Diagnosis 1 Pain in right hip (M 25.551) Diagnosis 2 Lumbar pain (M54.50) Referral Organization [facility] Referring Provider First Name Homa Referring Provider Last Name Mike Referring Provider Specialty Nurse Pract itioner Referred Organization [facility] Referred Address [address] [place],[address] Referred Provider Specialty Physical The rapist Referral Priority Routine Reason appt pt would like to discuss hip, back, knee and sciatic pain Diagnosis 1 Other spondylosis wi th radiculopathy, lumbar region (M47.26) Referral Organization [facility] Referring Provider First Name Ayanna Referring Provider Last Name Sakina Referring Provider Specialty Family Prac art Referred Organization [facility] Referred Provider Homa Mckeon Referred Address [address],[address] Referred Provider Specialty Nurse Uli cotto Referral Priority Routine General Notes Nereyda Sanchez 07/16/2023 03:06:01 PM > referral sent p2p. pt understands she will be contacted to schedule this appt Reason appt pt is lu gilliam to see any of the providers consult for eval and treatment of rheumatism/prescribing of Plaquenil Diagnosis 1 Rheumatism, unspecif ied (M79.0) [facility] Referring Provider First Name Ayanna Referring Provider Last Name [facility] Referring Provider Specialty Family Prac art Referred Organization [facility] Referred Provider Esteban Saravia Referred Address [address],[address] Referred Provider Specialty Rheumatology Referral Priority Routine [...] Wrist fracture, righ t (S62.101A) Referral Organization [facility] Gabrielain [place] Referring Provider First Name Ayanna Referring Provider Last Name Sakina Referring Provider Specialty Family Prac art Referred Organization [facility] Referred Provider Penny Mike Referred Address [address] [facility] [place],[address] Referred Provider Specialty Hand Surgery Referral Priority [...] th radiculopathy, lumbar region (M47.26) Referral Organization [facility] Gabrielain [employer] Wilda Referring Provider First Name Ayanna Referring Provider Last Name Earleabbi Referring Provider Specialty Family Prac art Referred Organization [facility] Referred Provider Anthony Morales Referred Address [address] [place],[address] Referred Provider Specialty Psychiatry, Neurology (Osteopaths only) [...] Diagnosis 1 Leukocytosis (D72.82 9) Referral Organization [facility] Family Gabrielaramila Astudillo Referring Provider First Name Ayanna Referring Provider Last Name Sakina Referring Provider Specialty Family Prac art Referred Organization [facility] Referred Provider Saqib Coleman Referred Address [address] [place],[address] Referred Provider Specialty Hematology/O ncology Referral Priority [...] Knee pain, right (M2 5.561) Referral Organization [facility] Gabrielaramila Astduillo Referring Provider First Name Ayanna Referring Provider Last Name Sakina Referring Provider Specialty [facility] Prac art Referred Organization [facility] Referred Provider Zohaib Akins II Referred Address [address] [place], [place],[address] Referred Provider Specialty Orthopedic S urgery Referral Priority Routine General Notes Nereyda Sanchez 02/06/2022 02:16:49 PM > referral sent p2p. pt understands she will be contacted to schedule this appt. Reason appt pt needs cons ult to discuss change in stool habits, history of colon polyps, hx of IBS Diagnosis 1 Change in stool jacquie yesi (R19.4) Referral Organization [facility] Gabrielaramila Astudillo Referring Provider First Name Ayanna Referring Provider Last Name Sakina Referring Provider Specialty [facility] Prac art Referred Organization [facility] Gastroenterolo gy Referred Provider Ayanna Milner Referred Address [address] [facility] [address], [place],[address] Referred Provider Specialty Gastroentero logy Referral Priority [...] radiculopathy Neuropathy Other abnormal blood chemistry Other jail (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 therapy Peripheral edema HLD (hyperlipidemia) Hypertension Hypothyroidism Insomnia Chief Complaint Amb Documentation E11.65 E78.5 E03.9 R79.89 N30.90 Amb Documentation review labs/med refill sore throat, congestion, cough Reason for Visit Chronic lymphocytic leukemia Cystitis Diabetes type 2, uncontrolled Lumbar disc disease with radiculopathy Neuropathy Other abnormal blood chemistry Other jail (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 therapy Peripheral edema HLD (hyperlipidemia) [...] eptember 2023 9:49am Other spondylosis with radiculopathy, [facility] April 05, 2024 9:49am Cystitis May 11, 2024 2 :37pm Diabetes type 2, uncontrolled May 112023 2:37pm Hip pain, left May 11, 2024 2 :37pm Knee pain, left May 11, 2024 2 :37pm Memory changes May 11, 2024 2 :37pm Other abnormal blood chemistry April 142023 2:37pm Other spondylosis with radiculopathy, [facility] May 11, 2024 2:37pm HLD (hyperlipidemia) [...] anuary 2024 1:16pm Other spondylosis with radiculopathy, [facility] August 11, 2024 1:16pm Chief Complaint [...] 2024 3:4 1pm Other spondylosis with radiculopathy, [facility] November 10, 2024 3:41pm Peripheral edema [...] 2024 3:4 1pm Other spondylosis with radiculopathy, [facility] November 10, 2024 3:41pm Peripheral edema [...] 2024 3:4 1pm Other spondylosis with radiculopathy, [facility] November 10, 2024 3:41pm Peripheral edema [...] and content) DATE CREATED AUTHOR 01/06/2021 [facility] DATE CREATED AUTHOR AUTHOR'S ORGANIZ ATION 08/16/2022 [facility] DATE CREATED AUTHOR AUTHOR'S ORGANIZ ATION 11/13/2022 [facility] DATE CREATED AUTHOR AUTHOR'S ORGANIZ ATION 12/18/2024 [facility] DATE CREATED AUTHOR AUTHOR'S ORGANIZ ATION 01/14/2025 [facility] DATE CREATED AUTHOR AUTHOR'S ORGANIZ ATION 02/01/2025 [facility] DATE CREATED AUTHOR AUTHOR'S ORGANIZ ATION 02/10/2025 [facility] DATE CREATED AUTHOR AUTHOR'S ORGANIZ ATION 03/12/2025 [facility] Source Comments (unrecognize d section and content) In the event this informatio n is protected by the Federal Confidentiality of Alcohol and Drug Abuse Patient Records regulations: The Federal rules restrict any use of the information to criminally investigate or prosecute any alcohol or drug abuse patient.[facility] the event this information is protected by the Federal Confidentiality of Alcohol and Drug Abuse Patient Records regulations: The Federal rules restrict any use of the information to criminally investigate or prosecute any alcohol or drug abuse patient.[facility] Hospital[facility] the event this information is protected by the Federal Confidentiality of Alcohol and Drug Abuse Patient Records regulations: The Federal rules restrict any use of the information to criminally investigate or prosecute any alcohol or drug abuse patient.[facility] the event this information is protected by the Federal Confidentiality of Alcohol and Drug Abuse Patient Records regulations: The Federal rules restrict any use of the information to criminally investigate or prosecute any alcohol or drug abuse patient.[facility] Hospital[facility] the event this information is protected by the Federal Confidentiality of Alcohol and Drug Abuse Patient Records regulations: The Federal rules restrict any use of the information to criminally investigate or prosecute any alcohol or drug abuse patient.[facility] HospitalIn the event this information is protected by the Federal Confidentiality of Alcohol and Drug Abuse Patient Records regulations: The Federal rules restrict any use of the information to criminally investigate or prosecute any alcohol or drug abuse patient.[facility] Hospital[facility] the event this information is protected by the Federal Confidentiality of Alcohol and Drug Abuse Patient Records regulations: The Federal rules restrict any use of the information to criminally investigate or prosecute any alcohol or drug abuse patient.[facility] Hospital[facility] the event this information is protected by the Federal Confidentiality of Alcohol and Drug Abuse Patient Records regulations: The Federal rules restrict any use of the information to criminally investigate or prosecute any alcohol or drug abuse patient.[facility] Hospital[facility] the event this information is protected by the Federal Confidentiality of Alcohol and Drug Abuse Patient Records regulations: The Federal rules restrict any use of the information to criminally investigate or prosecute any alcohol or drug abuse patient.[facility] Hospital[facility] the event this information is protected by the Federal Confidentiality of Alcohol and Drug Abuse Patient Records regulations: The Federal rules restrict any use of the information to criminally investigate or prosecute any alcohol or drug abuse patient.[facility] Hospital[facility] the event this information is protected by the Federal Confidentiality of Alcohol and Drug Abuse Patient Records regulations: The Federal rules restrict any use of the information to criminally investigate or prosecute any alcohol or drug abuse patient.[facility] HospitalIn the event this information is protected by the Federal Confidentiality of Alcohol and Drug Abuse Patient Records regulations: The Federal rules restrict any use of the information to criminally investigate or prosecute any alcohol or drug abuse patient.[facility] REASON FOR VISIT (unrecogniz ed section [...] Kevin MD Other Provider Active Kitty Powell 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 Other Provider Active Madeline Juarez , DO [...] MD Other Provider Active Yanira Najera , RECONSTRUCTIVE SURGEON-C Other Provider Active Salas Winslow MD Other [...] MD Other Provider Active Susan Quarles , RECONSTRUCTIVE SURGEON-C Other Provider Active Gume Macedo , DO [...] Ayanna Vicente DO Primary Care Provider Active Director Clinical Data Relationship Specialty Start Date End Date Ayanna Vicente, DO [address] [place] [address] PCP - General [facility] Medicine 08/01/11 Ayanna Vicente, DO [address] [place] [address] Referring Family Medicine 10/04/20 Ayanna Vicente, DO [address] [place] [address] Referring Family Medicine 01/09/21 Director Clinical Data Relationship Specialty Start Date End Date Ayanna Vicente, DO [address] [place] [address] PCP - General Family Medicine 08/01/11 Ayanna Vicente, DO [address] [place] [address] Referring Family Medicine 10/04/20 Ayanna Vicente, DO [address] [place] [address] Referring Family Medicine 01/09/21 Director Clinical Data Relationship Specialty Start Date End Date Ayanna Vicente, DO [address] [place] [address] PCP - General Family Medicine 08/01/11 Ayanna Vicente, DO [address] [place] [address] Referring Family Medicine 10/04/20 Ayanna Vicente, DO [address] [place] [address] Referring Family Medicine 01/09/21 Director Clinical Data Relationship Specialty Start Date End Date Ayanna Vicente, DO [address] [place] [address] PCP - General Family Medicine 08/01/11 Ayanna Vicente, DO [address] [place] [address] Referring Family Medicine 10/04/20 Ayanna Vicente, DO [address] [place] [address] Referring Family Medicine 01/09/21 Team Status: Inactive Member Role Status Dates Ayanna Vicente DO Primary Care Provider, Family Provid er Active Santos Lares MD Attending Provider Active Team Status: Inactive Member Role Status Dates Ayanna Vicente DO Primary Care Provider, Family Provid er Active Esvin Dubon NP-C Attending Provider Active Director Clinical Data Relationship Specialty Start Date End Date Ayanna Vicente DO [address] [place] [address] PCP - General Family Medicine 08/01/11 Ayanna Vicente DO [address] [place] [address] Referring Family Medicine 10/04/20 Ayanna Vicente DO [address] [place] [address] Referring Family Medicine 01/09/21 Director Clinical Data Relationship Specialty Start Date End Date Ayanna Vicente MD [address] [place], [place] [address] PCP - General Family Medicine 12/10/22 Director Clinical Data Relationship Specialty Start Date End Date Ayanna Vicente MD [address] [place] [id number] PCP - General Family Medicine 12/10/22 Team [...] May 12, 2024 End: May 12, 2024 Director Clinical Data Relationship Specialty Start Date End Date Ayanna Vicente DO [address] [place] [address] PCP - General Family Medicine 08/01/11 Ayanna Vicente DO [address] [place] [address] Referring Family Medicine 10/04/20 Ayanna Vicente DO [address] [place] [address] Referring Family Medicine 01/09/21 Director Clinical Data Relationship Specialty Start Date End Date Ayanna Vicente DO [address] [place] [address] PCP - General Family Medicine 08/01/11 Ayanna Vicente, [address] [place] [address] Referring Family Medicine 10/04/20 Ayanna Vicente, [address] [place] [address] Referring Family Medicine 01/09/21 Director Clinical Data Relationship Specialty Start Date End Date Ayanna Vicente DO [address] [place] [address] PCP - General Family Medicine 08/01/11 Ayanna Vicente DO [address] [place] [address] Referring Family Medicine 10/04/20 Ayanna Vicente DO [address] [place] [address] Referring Family Medicine 01/09/21 Director Clinical Data Relationship Specialty Start Date End Date Ayanna Vicente MD [address] [place], [place] [address] PCP - General Family Medicine 12/10/22 Director Clinical Data Relationship Specialty Start Date End Date Ayanna Vicente MD [address] [place], [place] [address] PCP - General Family Medicine 12/10/22 Director Clinical Data Relationship Specialty Start Date End Date Ayanna Vicente MD [address] [place], [place] [address] PCP - General Family Medicine 12/10/22 Director Clinical Data Relationship Specialty Start Date End Date Ayanna Vicente MD [address] [place] [address] PCP - General Family Medicine 12/10/22 Director Clinical Data Relationship Specialty Start Date End Date Ayanna Vicente MD [address] [place] [address] PCP - General Family Medicine 12/10/22 Director Clinical Data Relationship Specialty Start Date End Date Ayanna Vicente MD [address] [place] [address] PCP - General Family Medicine 12/10/22 Director Clinical Data Relationship Specialty Start Date End Date Ayanna Vicente MD [address] [place], [place] [address] PCP - General Family Medicine 12/10/22 Babita Guillaume DO [address] [place] [id number] Referring Physician Neurology 08/09/24 Director Clinical Data Relationship Specialty Start Date End Date Ayanna Vicente MD [address] [place], [place] [address] PCP - General Family Medicine 12/10/22 Babita Guillaume DO [address] [place] [id number] Referring Physician Neurology 08/09/24 Team Status: Active [...] November 10, 2024 End: November 10, 2024 Director Clinical Data Relationship Specialty Start Date End Date Ayanna Vicente DO [address] [place] [address] PCP - General Family Medicine 08/01/11 Ayanna Vicente DO [address] [place] [address] Referring Family Medicine 10/04/20 Ayanna Vicente DO [address] [place] [address] Referring Family Medicine 01/09/21 Director Clinical Data Relationship Specialty Start Date End Date Ayanna Vicente DO [address] [place] [address] PCP - General Family Medicine 08/01/11 Ayanna Vicente DO [address] [place] [address] Referring Family Medicine 10/04/20 Ayanna Vicente DO [address] [place] [address] Referring Family Medicine 01/09/21 Director Clinical Data Relationship Specialty Start Date End Date Aynana Vicente MD [address] [place], [place] [address] PCP - General Family Medicine 12/10/22 Babita Guillaume DO [address] [place], [place] [address] Referring Physician Neurology 08/09/24 Director Clinical Data Relationship Specialty Start Date End Date Ayanna Vicente MD [address] [place], [place] [address] PCP - General Family Medicine 12/10/22 Babita Guillaume DO [address] [place] [address] Referring Physician Neurology 08/09/24 Goals (unrecognized section [...] BE BASED ON THE PRIMARY CLINICAL RECORDS. [facility] [employer] [facility]. provides no warranty or guarantee of the accuracy or completeness of information in this document.
== END 2025-03-24 13:28 | disposition home or self-care (01) ==
PROVIDERS: PCP Family Medicine; Visit Provider Nurse Practitioner
DX: M96.1 Postlaminectomy syndrome, not elsewhere classified (principal)

== ENCOUNTER 2025-04-06 12:46 | Outpatient (OUT) | payer MEDICARE, SELFPAY ==
--- OUTSIDE RECORDS SUMMARY | 2024-08-03 09:30 | XMS_ITS ---
Author Organization [facility] Address [address] [place] [address] [place] [address] [place] [address] Care Team Providers Care Lithographic Press Feeder Name Role Phone Dmitriy Presley DO Primary Care Provider Unavailab Willy Davis Unavailable [phone] REASON FOR VISIT rfc Encounters Encounter Location Date Provider Diagnosis [facility] [address] [place] [address] [place] [address] 08/03/2024 Willy Schwarz Plan Of Treatment Next Appt Details Provider Name:Willy muir, 05/10/2025 03:15:00 PM, [address] [place] [address] Dr Serrano, [address], [place], [address], Progress Notes * Viki APARICIOOB: 2 (84 yo F)Acc No.[id number]:08/03/2024 Patient: Kathy GUILLEN Provider: Wilfredo Schwarz DPM :1940 A ge:84 Y S ex:Female Date:08/03/2024 Phone: Address:[address] [place] [address] Pcp:Dmitriy Presley DO Subjective: * Chief Complaints: * 1 . Rfc. * Medical History: Objective: * Vitals: Assessment: Plan: * Treatment: * Images: * Electronic signature of [place] in [place]ICOLASA Schwarz on 04/06/2025 at 12:49 PM EDT Sign off status: Pending * Provider: Wilfredo Schwarz DPM Date: 0 08/03/2024 Generated for Birgit sultana/Zena/eTransmitting on: 0 04/06/2025 12:49 PM EDT
--- OUTSIDE RECORDS SUMMARY | 2024-11-30 04:45 | XMS_ITS ---
Author Organization [facility] in [place] Address [address] [place] [address] Care Team Providers Care Channel Manager Name Role Phone Dmitriy Presley DO Primary Care Provider Unavailab Carolin Mc Unavailable [phone] REASON FOR VISIT New PT Onc Encounters Encounter Location Date Provider Diagnosis [facility] [address] [place] [address] 11/30/2024 Carolin Silva Plan Of Treatment Next Appt Details Provider Name:Carolin Silva , 06/28/2025 01:00:00 PM, [address] [place], [address], Progress Notes * Viki WASHBURNOB: 2 (84 yo F)Acc No.[id number]:11/30/2024 UNLOCKED PROGRESS NOTE Progress Notes Patient: Kathy GUILLEN Provider: Rolo Silva M.D. :1940 A ge:84 Y S ex:Female Date:11/30/2024 Address:[address] [place], [place] [address], [id number] Pcp:Dmitriy Presley DO Subjective: * Chief Complaints: * 1 . New PT Onc. * Medical History: Objective: * Vitals: Assessment: Plan: * Treatment: * * Electronic signature of Reina Silva MD, [id number] on 04/06/2025 at 12:49 PM EDT Sign off status: Pending Visit Status: P EN (Pending) * Provider: Rolo Silva M.D. Date: 0 11/30/2024 Generated for Birgit sultana/Zena/Isha on: 0 04/06/2025 12:49 PM EDT
--- OUTSIDE RECORDS SUMMARY | 2025-02-22 09:15 | XMS_ITS ---
Author Organization The [facility] in [place] Address [address] [place] [address] Care Team Providers Care Burrer Marker Axle Name Role Phone Dmitriy Presley DO Primary Care Provider Unavailab Carolin Mc Unavailable [phone] REASON FOR VISIT MD Encounters Encounter Location Date Provider Diagnosis The [facility] Oncology [address] [place] [address] 02/22/2025 Carolin Silva Plan Of Treatment Next Appt Details Provider Name:Carolin Silva , 06/28/2025 01:00:00 PM, [address] [place], [address], Progress Notes * Viki WASHBURNOB: 2 (84 yo F)Acc No.[id number]:02/22/2025 UNLOCKED PROGRESS NOTE Progress Notes Patient: Kathy GUILLEN Provider: Rolo Silva M.D. :1940 A ge:84 Y S ex:Female Date:02/22/2025 Address:[address] [place], [place] [address] Pcp:Dmitriy Presley DO Subjective: * Chief Complaints: * 1 . MD. * Medical History: Objective: * Vitals: Assessment: Plan: * Treatment: * * Electronic signature of Reina Silva MD, [id number] on 04/06/2025 at 12:48 PM EDT Sign off status: Pending Visit Status: C ANC (Cancelled) * Provider: Rolo Silva M.D. Date: 0 02/22/2025 Generated for Birgit sultana/Zena/Isha on: 0 04/06/2025 12:48 PM EDT
--- OUTSIDE RECORDS SUMMARY | 2025-03-01 07:45 | XMS_ITS ---
Author Organization The [facility] in [place] Address [address] [place] [address] Care Team Providers Care Cd Technician Name Role Phone Dmitriy Presley DO Primary Care Provider Unavailab Carolin Mc Unavailable [phone] REASON FOR VISIT MD Encounters Encounter Location Date Provider Diagnosis The [facility] Oncology [address] [place] [address] 03/01/2025 Carolin Silva Plan Of Treatment Next Appt Details Provider Name:Carolin Silva , 06/28/2025 01:00:00 PM, [address] [place], [address], Progress Notes * Viki WASHBURNOB: 2 (84 yo F)Acc No.[id number]:03/01/2025 UNLOCKED PROGRESS NOTE Progress Notes Patient: Kathy GUILLEN Provider: Rolo Silva M.D. :1940 A ge:84 Y S ex:Female Date:03/01/2025 Address:[address] [place], [place] [address] Pcp:Dmitriy Presley DO Subjective: * Chief Complaints: * 1 . MD. * Medical History: Objective: * Vitals: Assessment: Plan: * Treatment: * * Electronic signature of Reina Silva MD, [id number] on 04/06/2025 at 12:49 PM EDT Sign off status: Pending Visit Status: P EN (Pending) * Provider: Rolo Silva M.D. Date: 0 03/01/2025 Generated for Birgit sultana/Zena/Isha on: 0 04/06/2025 12:49 PM EDT
--- OUTSIDE RECORDS SUMMARY | 2025-04-06 12:49 | XMS_ITS | Patient Health Record ---
Author Organization 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) Active confirmed Problem Polyneuropathy due to type 2 diabetes mellitus (312933915) Type 2 diabetes mellitus with diabetic polyneuropathy (E11.42) Active confirmed Problem Type 2 diabetes mellitus with peripheral angiopathy (878049959) Type 2 diabetes mellitus with diabetic peripheral angiopathy without gangrene (E11.51) Active confirmed Problem Dilatation of aorta (25438579) Thoracic aortic ectasia (I77.810) Active confirmed Problem Rheumatoid arthritis (89853233) Rheumatoid arthritis, unspecified (M06.9) Active confirmed Problem Tinea unguium (807096342) Tinea unguium (B35.1) Active confirmed Problem Immunodeficiency disorder (disorder) (880254203) 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) Active confirmed Problem Chronic kidney disease stage 3B (disorder) (868419323) Chronic kidney disease, stage 3b (N18.32) Active confirmed Vital Signs Blood pressure diastolic 60 mm Hg 02/08/2025 Height 69 in 02/08/2025 Blood pressure systolic 86 mm Hg 02/08/2025 Weight 232 lbs 02/08/2025 BMI 34.26 02/08/2025 Encounters Encounter Location Date Provider Diagnosis [address] [place] [address] 05/03/2024 Willy Schwarz Tinea unguium B35.1 ; Type 2 diabetes mellitus with diabetic peripheral angiopathy without gangrene E11.51 and Type 2 diabetes mellitus with diabetic polyneuropathy E11.42 [facility] [address] [place] [address] 08/10/2024 Willy Schwarz Tinea unguium B35.1 ; Type 2 diabetes mellitus with diabetic peripheral angiopathy without gangrene E11.51 ; Type 2 diabetes mellitus with diabetic polyneuropathy E11.42 ; Chronic lymphocytic leukemia of B-cell type not having achieved remission C91.10 ; Rheumatoid arthritis, unspecified M06.9 and Immunodeficiency due to conditions classified elsewhere D84.[address] [facility] [address] [place] [address] 11/09/2024 Willy Schwarz Tinea unguium B35.1 ; Type 2 diabetes mellitus with diabetic peripheral angiopathy without gangrene E11.51 ; Type 2 diabetes mellitus with diabetic polyneuropathy E11.42 and buttermaker helper (current) use of oral hypoglycemic drugs Z79.[address] [facility] [address] [place] [address] 02/08/2025 Willy Schwarz Tinea unguium B35.1 ; Type 2 diabetes mellitus with diabetic peripheral angiopathy without gangrene E11.51 ; Type 2 diabetes mellitus with diabetic polyneuropathy E11.42 ; custodial (current) use of oral hypoglycemic drugs Z79.84 [...] and patient confirms understanding of such. 11/09/2024 custodial (current) use of oral hypoglycemic drugs (ICD-10 - Z79.84) 02/08/2025 buttermaker helper (current) use of oral hypoglycemic drugs (ICD-10 [...] Details Provider Name:Willy muir, 05/10/2025 03:15:00 PM, [facility] [place], [facility], [place], [address], Insurance Providers Payer Name Payer Address Payer Phone Subscriber Number Group Number Insured Name Patient Relationship to Insured Coverage Start Date Coverage End Date Medicare Part B J-15 Part [facility] [place] [address] [id number] Kathy Washburn Self - patient is the insured [facility] Health Care Options [address] [place] [address] [phone] [id number] Kathy Washburn Self - patient is the insured Medical (General) History Medical History History ICD Code Type II diabetes leukemia hypertension osteoarthritis fibromyalgia Thyroid disease Hypercholestrolemia Surgical History Surgery Date(Month/Year) hernia repair hysterectomy knee replacement x2 back surgery Hospitalization History Reason Date(Month/Year) see surgical
--- OUTSIDE RECORDS SUMMARY | 2025-04-06 12:49 | XMS_ITS | Encounter Summary ---
Author Organization [facility] Address [address] [facility] [place] [address] Care Team Providers Care Disability Coordinator Name Role Phone Dmitriy Presley MD Primary Care Provider [phone] Maco Guillaume DO Unavailable [phone] Encounter Details Date Type Department Care Team (Late st Contact Info) Description 01/19/2025 External Result Encounter [facility] Unsolicited Keith Iglesias DO [address] [place] [address] Social History Tobacco Use Types Packs/Day Years [...] Dermatology [address] [place] [address] Nay Louis PA [address] [place] [address] documented as of this encounter [...] Arndt M.D. 01/19/2025 2:20 PM Dictation Location: [facility] Transcribed By: [facility] 01/19/25 1420 Dictated By: Stanford Arndt DO 01/19/25 1417 Signed By: <Electronically signed by Stanford Arndt DO in OV> 01/19/25 1420 Narrative 01/19/2025 2:23 PM EDT [facility] [place] [address] Fluoroscopy Report Signed Patient: Kathy Washburn MR#: [id number] : 1940 Acct:[id number] Age/Sex: 84 / F ADM Date: 01/19/25 Loc: XD Room: Type: [facility] Attending Dr: Keith Iglesias DO Copies to: [...] enema Procedure Note Radiology, Radiologist, - 01/19/20[address] [place] [address] [place] [address] Fluoroscopy Report Signed Patient: Kathy Washburn LMR#: [id number] : 2Acct:[id number] Age/Sex: 84 / FADM Date: 01/19/25 Loc: XD Room:Type: [facility] Attending Dr: Keith Iglesias DO Copies to: [...] Arndt M.D. 01/19/2025 2:20 PM Dictation Location: [place] [address] Transcribed By: [facility] 01/19/25 1420 Dictated By: Stanford Arndt DO 01/19/25 1417 Signed By: <Electronically signed by Stanford Arndt DO in OV> 01/19/25 1420 Keith Iglesias DO IMG XR PROCEDURES Final R esult documented in this encounter Visit Diagnoses Not on filedocumented in this encounter Care Teams Disability Coordinator Relationship Specialty Start Date End Date Dmitriy Presley MD [address] [place], [place] [address] PCP - General Family Medicine 12/10/22 Maco Guillaume DO [address] [place] [address] Referring Physician Neurology 08/09/24 documented as of this encounter
--- OUTSIDE RECORDS SUMMARY | 2025-04-06 12:49 | XMS_ITS | Encounter Summary ---
Author Organization [facility] Address [facility] [place] [address] Care Team Providers Care Office Machines Teacher Name Role Phone Dmitriy Presley DO Primary Care Provider Dmitriy Presley DO Unavailable [phone] Dmitriy Presley DO Unavailable [phone] Source Comments In the event this information is protected by the Federal Confidentiality of Alcohol and Drug AbusePatient Records regulations: The Federal rules restrict any use of the information to criminally investigate or prosecute any alcohol or drug abuse patient.[facility] Encounter Details Date Type Department Care Team (Late st Contact Info) Description 05/10/2024 Patient [facility] -[address] [place] [address] Leona Romero RPh At your next appointment, choose [facility]. Social History Tobacco Use Types Packs/Day [...] is lower risk 4 02/07/2023 Data from: https://www.neighborhoodatlas.medicine.[facility].edu/. Last address used for calculation [address] [...] 12/19/2025 11:00 AM EDT Office Visit Rheumatology [address] [place] [address] [place] [address] [facility] [place] [address] Return in about 1 year (around 12/17/2025). documented as of this encounter Visit Diagnoses Not on filedocumented in this encounter Care Teams Office Machines Teacher Relationship Specialty Start Date End Date Dmitriy Presley DO [address] [place] [address] PCP - General Family Medicine 08/01/11 Dmitriy Presley DO [address] [place] [address] Referring Family Medicine 10/04/20 Dmitriy Presley DO [address] [place] [address] Referring Family Medicine 01/09/21 documented as of this encounter
--- OUTSIDE RECORDS SUMMARY | 2025-04-06 12:49 | XMS_ITS | Encounter Summary ---
Author Organization [facility] Address [facility] [place] [address] Care Team Providers Care Network Systems Operator Name Role Phone Dmitriy Presley DO Primary Care Provider [phone] Dmitriy Presley DO Unavailable [phone] Dmitriy Presley DO Unavailable [phone] Source Comments In the event this information is protected by the Federal Confidentiality of Alcohol and Drug AbusePatient Records regulations: The Federal rules restrict any use of the information to criminally investigate or prosecute any alcohol or drug abuse patient.[facility] Encounter Details Date Type Department Care Team (Late st Contact Info) Description 11/11/2024 Patient [facility] -[address] [place] [address] Leona Romero RPh At your next appointment, choose [facility]. Social History Tobacco Use Types Packs/Day [...] is lower risk 4 02/07/2023 Data from: https://www.neighborhoodatlas.medicine.[facility].edu/. Last address used for calculation [...] 12/19/2025 11:00 AM EDT Office Visit Rheumatology [address] [place] [address] [place] [address] [facility] [address] Return in about 1 year (around 12/17/2025). documented as of this encounter Visit Diagnoses Not on filedocumented in this encounter Care Teams Network Systems Operator Relationship Specialty Start Date End Date Dmitriy Presley DO [address] [place] [address] PCP - General Family Medicine 08/01/11 Dmitriy Presley DO [address] [place] [address] Referring Family Medicine 10/04/20 Dmitriy Presley DO [address] [place] [address] Referring Family Medicine 01/09/21 documented as of this encounter
--- OUTSIDE RECORDS SUMMARY | 2025-04-06 12:49 | XMS_ITS | Encounter Summary ---
Author Organization [facility] Address [address] [place] [address] Care Team Providers Care Roller Engraver Name Role Phone Dmitriy Presley DO Primary Care Provider [phone] Dmitriy Presley DO Unavailable [phone] Dmitriy Presley DO Unavailable [phone] Source Comments In the event this information [...] N ot on file 03/12/2021 Data from: https://www.neighborhoodatlas.medicine.[facility]/. Last address used for calculation Not on [...] 12/19/2025 11:00 AM EDT Office Visit Rheumatology [address] [place] [address] [place] [address] [facility] [place] [address] Return in about 1 year (around 12/17/2025). documented as of this encounter Visit Diagnoses Not on filedocumented in this encounter Care Teams Roller Engraver Relationship Specialty Start Date End Date Dmitriy Presley DO [address] [place] [address] PCP - General Family Medicine 08/01/11 Dmitriy Presley DO [address] [place] [address] Referring Family Medicine 10/04/20 Dmitriy Presley DO [address] [place] [address] Referring Family Medicine 01/09/21 documented as of this encounter
--- OUTSIDE RECORDS SUMMARY | 2025-04-06 12:49 | XMS_ITS | Clinical Summary ---
Author Organization [facility] Address [address] [facility], [address] [place] [address] Care Team Providers Care Boat Designer Name Role Phone Dmitriy Presley DO [...] [employer] CARE MEDICARE SUPP Care Teams Boat Designer Relationship Specialty Start Date End Date Dmitriy Presley DO PCP - General Family Medicine 02/05/19
--- OUTSIDE RECORDS SUMMARY | 2025-04-06 12:49 | XMS_ITS | Encounter Summary ---
Author Organization [facility] Address [address] [place] [address] Care Team Providers Care Extractor Filler Name Role Phone Dmitriy Presley MD Primary Care Provider [phone] Maco Guillaume DO Unavailable [phone] Encounter Details Date Type Department Care Team (Late st Contact Info) Description 01/20/2025 Orders Only [facility] [address] [place] [address] Keith Iglesias DO [address] [place] [address] Social History Tobacco Use Types [...] Dermatology [address] [place] [address] Nay Louis PA [address] [place] [address] documented as of this encounter Procedures Procedure Name Priority Date/Time Associated Diagnosis Comments COLONOSCOPY Routine 01/19/2025 1:56 PM EDT documented in this encounter Results * Colonoscopy (01/19/2025 1:56 PM EDT) Anatomical Region Laterality Modality Endoscopy Keith Iglesias DO ENDOSCOPY PROCEDURE ORDER LIU Final Result documented in this encounter Visit Diagnoses Not on filedocumented in this encounter Care Teams Extractor Filler Relationship Specialty Start Date End Date Dmitriy Presley MD [address] [place] [address] [place] [address] PCP - General Family Medicine 12/10/22 Maco Guillaume DO [address] [place] [address] Referring Physician Neurology 08/09/24 documented as of this encounter
--- OUTSIDE RECORDS SUMMARY | 2025-04-06 12:49 | XMS_ITS | Clinical Summary ---
Author Organization [facility] Address [address] [place] [address] Care Team Providers Care Nicker And Breaker Name Role Phone Dmitriy Presley MD Primary Care Provider [phone] Maco Guillaume DO Unavailable [phone] Allergies Active Allergy Reactions Criticality Noted Date [...] mg by mouth Daily Active Multiple Vitamin (Tab-A-Siavn) tablet Take 1 tablet by mouth Daily [...] urethra 3x per week for UTI prevention, [employer] #72, 178, cm, 08/16/24 9:10:00 EST, Height/Length [...] Description 01/20/2025 Orders Only [facility] [address] [place] [phone] Keith Iglesias DO 01/19/2025 Telephone [facility] [address] [place] [address] [address] [place] [phone] Keith Iglesias DO 01/19/2025 External Result Encounter [facility] External Department Unsolicited Keith Iglesias DO 01/12/2025 1:30 PM EDT Office Visit [facility] [address] [place] [phone] Keith Iglesias, Diarrhea, unspecified type (Primary Dx) 01/12/2025 Travel from Last 3 Months Immunizations Immunization [...] Dermatology [address] [place] [address] Nay Louis PA [address] [place] [address] Health Maintenance Due Date Last [...] 2:20 PM Dictation Location: [id number] Transcribed By: PWS 01/19/25 1420 Dictated By: Stanford Arndt DO 01/19/25 1417 Signed By: <Electronically signed by Stanford Arndt DO in OV> 01/19/25 1420 Narrative 01/19/2025 2:23 PM EDT [facility] [place] [id number] Fluoroscopy Report Signed Patient: Kathy Washbrun MR#: [id number] : 1940 Acct:[id number] Age/Sex: 84 / F ADM Date: 01/19/25 [...] Procedure Note Radiology, Radiologist, MD - 01/19/2025 [facility] [place] [id number] Fluoroscopy Report Signed Patient: Kathy Washburn LMR#: [id number] : 1940cct:[id number] Age/Sex: 84 / FADM Date: 01/19/25 Loc: [...] Arndt M.D. 01/19/2025 2:20 PM Dictation Location: [place] [address] Transcribed By: [facility] 01/19/25 1420 Dictated By: Stanford Arndt DO 01/19/25 1417 Signed By: <Electronically signed by Stanford Arndt DO in OV> 01/19/25 1420 Keith Iglesias DO IMG XR PROCEDURES Final R esult * Colonoscopy (01/19/2025 1:56 PM EDT) Anatomical Region Laterality Modality Endoscopy Keith Iglesias DO ENDOSCOPY PROCEDURE ORDER LIU Final Result from Last 3 Months Insurance MEDICARE [facility] Care Teams Nicker And Breaker Relationship Specialty Start Date End Date Dmitriy Presley MD [address] [place] [address] [place] [address] PCP - General Family Medicine 12/10/22 Maco Guillaume DO [address] [place] [address] Referring Physician Neurology 08/09/24
--- OUTSIDE RECORDS SUMMARY | 2025-04-06 12:49 | XMS_ITS | Patient Health Record ---
Author Organization [facility] [place] Address [address] [place] [address] Care Team Providers Care Executive Account Manager Name Role Phone Dmitriy Presley DO Primary Care Provider Unavailab Carolin Mc Unavailable [phone] Reason For Referral No Information Encounters Encounter Location Date Provider Diagnosis [facility] Oncology [address] [place] [address] 11/30/2024 Carolin Silva [facility] Oncology [address] [place] [address] 03/01/2025 Carolin Silva Plan Of Treatment Next Appt Details Provider Name:Carolin Silva , 06/28/2025 01:00:00 PM, [address] [place], [address], Insurance Providers Payer Name Payer Address Payer Phone Subscriber Number Group Number Insured Name Patient Relationship to Insured Coverage Start Date Coverage End Date [place]IC[place] [address] [place] [address] [id number] Kathy Washburn Self - patient is the insured 7 [facility] [address] [facility] [place] [address] [id number] Kathy Washburn Self - patient is the insured 7
--- OUTSIDE RECORDS SUMMARY | 2025-04-06 12:49 | XMS_ITS | Encounter Summary ---
Author Organization [facility] Address [address] [place] [address] Care Team Providers Care Regional Truck Driver Name Role Phone Dmitriy Presley MD Primary Care Provider [phone] Maco Guillaume DO Unavailable [phone] Encounter Details Date Type Department Care Team (Late st Contact Info) Description 12/07/2022 [facility] [address] [place] [address] Butch Smith DPM [address] [place] [address] Social History Tobacco Use Types Packs/Day Years [...] Dermatology [address] [place] [phone] Nay Louis PA [address] [place] [address] documented as of this encounter Visit Diagnoses Not on filedocumented in this encounter Care Teams Regional Truck Driver Relationship Specialty Start Date End Date Dmitriy Presley MD [address] [place] [address] [place] [address] PCP - General Family Medicine 12/10/22 Maco Guillaume DO [address] [place] [address] Referring Physician Neurology 08/09/24 documented as of this encounter
--- OUTSIDE RECORDS SUMMARY | 2025-04-06 12:49 | XMS_ITS | Clinical Summary ---
Author Organization [facility] Address [address] [place] [address] Care Team Providers Care Warehouse Order Picker Name Role Phone Dmitriy Presley DO Primary Care Provider [phone] Dmitriy Presley DO Unavailable [phone] Dmitriy Presley DO Unavailable [phone] Allergies Active Allergy Reactions Criticality Noted Date [...] Noted Date Diagnosed Date Knee pain 07/24/2011 Family History Medical History Relation Comments Heart [...] is lower risk 4 02/07/2023 Data from: https://www.neighborhoodatlas.medicine.[facility].edu/. Last address used for calculation [address] [facility] 02/07/2023 Comments No Sex and [...] 12/19/2025 11:00 AM EDT Office Visit Rheumatology [address] [place], [place] [id number] [place] [address] [facility] [place], [place] [id number] Return in about 1 year (around 12/17/2025). Health Maintenance Due Date Last Done Comments HbA1C 1945 Diabetic Foot Exam 1952 Dilated Retinal Exam 1952 Urine Albumin:Creatinine Ratio 1952 Anxiety Screening 1960 Depression Screening 1960 LDL Cholesterol 1960 Medicare Annual Wellness Visit 06/13/2007 Bone Density Screening 2007 Shingrix Vaccine (2 of 2) 08/18/2023 06/23/2023 Advance Directive Discussion 07/14/2024 Influenza Vaccine (#1) 2025 , 04/15/2023, 04/25/2021, Additional history exists DTaP,Tdap,Td Vaccine (2 - Td or Tdap) 01/14/2032 01/13/2022 Pneumococcal Vaccine: 50+ Completed 2022, 04/22/2022, 07/14/2019, Additional history exists RSV Vaccine Completed 06/23/[address] [address] MEDICARE Care Teams Warehouse Order Picker Relationship Specialty Start Date End Date Dmitriy Presley DO [address] [place] [address] PCP - General Family Medicine 08/01/11 Dmitriy Presley DO [address] [place] [address] Referring Family Medicine 10/04/20 Dmitriy Presley DO [address] [place] [address] Referring Family Medicine 01/09/21
--- OUTSIDE RECORDS SUMMARY | 2025-04-06 12:49 | XMS_ITS | Encounter Summary ---
Author Organization [facility] Address [address] [place] [address] Care Team Providers Care Store Loss Prevention Manager Name Role Phone Dmitriy Presley DO Primary Care Provider [phone] Dmitriy Presley DO Unavailable [phone] Dmitriy Presley DO Unavailable [phone] Source Comments In the event this information is protected by the Federal Confidentiality of Alcohol and Drug AbusePatient Records regulations: The Federal rules restrict any use of the information to criminally investigate or prosecute any alcohol or drug abuse patient.[facility] Encounter Details Date Type Department Care Team (Late st Contact Info) Description 04/03/2022 Abstract Hematology/Oncology [address] [place] [address] Santos Lares MD [address] [facility] [place] [address] Social History Tobacco Use Types [...] N ot on file 03/12/2021 Data from: https://www.neighborhoodatlas.medicine.[facility].edu/. Last address used for calculation Not [...] 12/19/2025 11:00 AM EDT Office Visit Rheumatology [address] [place] [address] [place] [address] [facility] [address] Return in about 1 year (around 12/17/2025). documented as of this encounter Visit Diagnoses Not on filedocumented in this encounter Care Teams Store Loss Prevention Manager Relationship Specialty Start Date End Date Dmitriy Presley DO [address] [place] [address] PCP - General Family Medicine 08/01/11 Dmitriy Presley DO [address] [place] [address] Referring Family Medicine 10/04/20 Dmitriy Presley DO [address] [place] [address] Referring Family Medicine 01/09/21 documented as of this encounter
--- OUTSIDE RECORDS SUMMARY | 2025-04-06 12:49 | XMS_ITS | Clinical Summary ---
Author Organization [facility] Address [address] [place] [address] Phone Care Team Providers Care Psychologists Name Role Phone Dmitriy Presley DO Primary Care Provider [phone] Social History Tobacco Use Types Packs/Day Years [...] - PCV) 04/22/2023 04/22/2022, 04/03/2019 COVID-19 Vaccine (1 - season) 2025 Influenza Vaccine (#1) 2025 2, 04/04/2021, 03/27/2020, [...] age to complete this topic Care Teams Psychologists Relationship Specialty Start Date End Date Dmitriy Presley DO PCP - General 05/13/18
--- OUTSIDE RECORDS SUMMARY | 2025-04-06 12:58 | XMS_ITS | CCD ---
Author Organization [facility] CliniSyme Care Team Providers Care Insurance Analyst Name Role Phone Ayanna Vicente Primary Care Provider Ayanna Vicente Unavailable [phone] Ayanna Vicente Unavailable Ayanna Vicente Unavailable Ayanna Milner Unavailable DO Ayanna Vicente Primary Care Provider MD James Redding Emergency Provider [phone] MD Bertram Garrison Admit Provider MD Bertram Garrison Attending Provider MD Galo Max Admit Provider MD Galo Max Attending Provider [phone] ALLYSSA Penn Other Provider Unavailable ALLYSSA Orourke Other Provider Unavailable ALLYSSA Camejo Other Provider Unavailable ALLYSSA Das Other Provider Unavailable ALLYSSA Acosta Other Provider Unavailable ALLYSSA Wall Other Provider Unavailable MD Yuliana Hale Other Provider MD Herman Kevin Other Provider Prasanths, LAPPER Kitty Villalobos Other Provider DO Madeline Juarez Other Provider MD Marcio Hernandez Other Provider [phone] DO Loco Velasquez Other Provider MD Elgin Irby Other Provider [phone] MD Adali Salamanca Other Provider ART Riojas-BC Valarie Other Provider MD Max Paulino Other Provider MD Faisal Abel Other Provider MD Bertram Garrison Other Provider MD Bobby Guevara Other Provider MD Pietro Chaparro Other Provider MD Bin Rokc Other Provider MD Michael Burnett Other Provider [...] Other Provider DO Gume Macedo Other Provider [phone] MD Zohaib Akins II Other Provider DO Ayanna Vicente Attending Provider Ayanna Vicente DO Primary Care Provider [phone] Ayanna Vicente DO Unavailable Ayanna Vicente DO Unavailable DO Ayanna Vicente Primary Care Provider Ayanna Vicente DO Primary Care Provider Ayanna Vicente DO Unavailable Ayanna Vicente DO Unavailable DO Ayanna Vicente Primary Care Provider DO Ayanna Vicente Attending Provider MD Santos Lares Attending Provider Ayanna Vicente Primary Care Unavailable PABLO Dubon Attending Provider DO Ayanna Vicente Primary Care Provider [phone] DO Ayanna Vicente Attending Provider MD Santos [...] Ayanna Vicente DO Primary Care Provider [phone] Ayanna Vicente DO Unavailable [phone] Ayanna Vicente DO Unavailable [phone] DO Ayanna Vicente Primary Care Provider DO Ayanna Vicente Attending Provider Ayanna Vicente DO Primary Care Provider Sakina WISDOM, Ayanna Attending Provider Aundrea DO, Christopher Unavailable Ayanna Vicente DO Primary Care Provider Ayanna Vicente DO Attending Provider [phone] Marker DO, Tri Vasquez Attending Provider Ayanna [...] GUILLAUME Referring Unavailable Aundrea WISDOM, Christopher Unavailable [phone] Ayanna Vicente DO Attending Provider [phone] Sakina WISDOM, Ayanna Primary Care Provider Lesli Arevalo MD Attending Provider [phone] Roxane WISDOM, Moe Attending Provider Ayanna [...] Unavailable Ayanna Vicente DO Primary Care Provider [phone] Giedraitis MD, Andrius Attending Provider Ayanna Vicente DO [...] Drug Allergy 02-20-20 04 Hives, Swelling [facility] (20 sources) cefpodoxime; Translations: [Vantin] Drug Allergy 12-24-19 16 Eye swelling (finding) [facility] (20 sources) cepahlosporins Propensity to adverse reactions Unknown [facility] Other (20 sources) Cephalosporins (Antibiotic); Translations: [Cephalosporins] Allergy to substance 02-20-20 04 Hives, Swelling, Swelling (morphologic abnormality), Eye swelling (finding), Unknown [facility] Comment on above: Eyes swelled also (20 sources) cefpodoxime; Translations: [CEFPODOXIME] Drug Allergy 02-17-20 19 Unknown, Other [facility] (1 source) Amoxicillin Drug Allergy 12-24-19 16 [facility] (15 sources) Medicinal cephalosporin and acting as antibacterial agent (FN) Drug allergy Unknown [facility] Other (2 sources) Bacitracin / Neomycin / Polymyxin B Drug Allergy Unknown [facility] Other (20 sources) Bacitracin; Translations: [bacitracin] Drug Allergy 08-12-19 Unknown Reaction [facility] (20 sources) Neomycin; Translations: [neomycin] Drug Allergy 08-12-19 Unknown Reaction [facility] (20 sources) polymyxin B; Translations: [polymyxin B] Allergy to substance 08-12-19 Unknown Reaction [facility] (1 source) cefpodoxime Drug Allergy 01-28-20 [facility] Repository Medications Current Medications Medication Drug [...] day(s), # 14 tab(s), Refills(s) 0, Pharmacy: [facility], 178, cm, 02/08/25 9:03:00 EDT, [...] urethra 3x per week for UTI prevention, [facility], 178, cm, 02/08/25 9:03:00 EDT, Height/Length [...] urethra 3x per week for UTI prevention, [facility], 178, cm, 08/16/24 9:10:00 EST, Height/Length Dosing, 103, kg, 08/16/24 9:10:00 EST, Weight Dosing 08/16/2024 Active Start: 08-16-2024 Estrace 0.1 mg /g Cream See Instructions, 42.5 gm, Refill(s) 6, apply a pea-sized amount vaginally and around the urethra 3x per week for UTI prevention, [facility], 178, cm, 08/16/24 9:10:00 EST, Height/Length [...] Active Start: 09-13-2021 take 1 tablet by jeinffer th every six hours Imodium A-D 2 [...] incontinence, # 90 tab(s), Refills(s) 3, Pharmacy: [facility], 178, cm, 02/11/23 11:43:00 EDT, Height/Length [...] Capsule Discontinued 100 MG PO Twice daily April 02, 2017 [...] mg tablet Discontinued 750 MG PO Daily 1 January [...] 2017 12:00am January 13, 2022 4:47pm sennosides, mcc 8.6 mg oral tablet (3 sources) Start: [...] Episodic Other aftercare (6 sources) Other long term care social worker (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 therapy; Translations: [Long-term (current) use of other medications] Onset: 02-06-2022 Resolved: 02-06-2022 Episodic Other aftercare (18 sources) Long-term current use of drug therapy; Translations: [Other long term care social worker (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 therapy] 10-21-2023 Episodic Other aftercare (2 sources) H/O: high risk medication; Translations: [Other long term care social worker (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 therapy] 06-17-2024 Episodic Other aftercare (1 source) Drug therapy finding; Translations: [Other senior living (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 therapy] 12-17-2024 Episodic Other aftercare (1 source) 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; Translations: [Type 2 [...] Basophils/100 WBC (Bld) 0.0 % Low 0.2-2.0 [facility] Eosinophils/100 WBC Manual c nt (Bld)Ordered By: Andrius Giedraitis on 02-09-2025 Eosinophils/100 WBC (Bld) 0.0 % Low 0.9-7.0 [facility] Erythrocyte distribution wid th Auto (RBC) [Ratio]Ordered By: Andcory Azul on 02-09-2025 Erythrocyte distribution width (RBC) [Ratio] 13.7 % 11.0-15.0 [facility] Estimated glomerular filtrat ion rate (GFR) non- AmericanOrdered By: Som Azul on 02-09-2025 GFR/1.73 sq M.predicted among non-blacks MDRD (S/P/Bld) [Vol rate/Area] 35 mL/min/{1.73_m2} Low >=60 mL/min/1.73 m 2 [facility] Hematocrit Auto (Bld) [Volum e fraction]Ordered By: Som Azul on 02-09-2025 Hematocrit (Bld) [Volume fraction] 36.4 % 36.0-48.0 [facility] Hemoglobin [Mass/volume] in BloodOrdered By: Som Azul on 02-09-2025 Hemoglobin (Bld) [Mass/Vol] 11.6 g/dL Low 12.0-16.0 [facility] Laboratory - Chemistry and C hemistry - challengeOrdered By: Som Azul on 02-09-2025 Calcium [Mass/Vol] 9.0 mg/dL 8.5-10.1 [facility] Chloride [Moles/Vol] 107 mmol/L 98-107 [facility] CO2 [Moles/Vol] 30.8 mmol/L 21.0-32.0 [facility] Creatinine [Mass/Vol] 1.43 mg/dL High 0.55-1.02 [facility] GFR/1.73 sq M.predicted MDRD (S/P/Bld) [Vol rate/Area] 43 mL/min/{1.73_m2} Low >=60 mL/min/1.73 m 2 [facility] Glucose [Mass/Vol] 120 mg/dL High 74-106 [facility] Potassium [Moles/Vol] 5.0 mmol/L 3.5-5.1 [facility] Sodium [Moles/Vol] 143 mmol/L 136-145 [facility] Urea nitrogen [Mass/Vol] 36.0 mg/dL High 7.0-18.0 [facility] Urea nitrogen/Creatinine [Mass ratio] 25.2 mg/mg [facility] Laboratory - Hematology and Cell countsOrdered By: Andnayeus Molinaraitis on 02-09-2025 Lymphocytes/100 WBC (Bld) 51.0 % 20.5-60.0 [facility] Monocytes/100 WBC (Bld) 5.0 % 1.7-12.0 [facility] Leukocytes [#/volume] correc andreina for nucleated erythrocytes in Blood by Automated counOrdered By: Andrius Carlyedraitis on 02-09-2025 WBC corrected for nucl RBC Auto (Bld) [#/Vol] 19.3 10 3/uL High 4.0-11.0 [facility] MCH Auto (RBC) [Entitic mass ]Ordered By: Andrius Giedraitis on 02-09-2025 MCH (RBC) [Entitic mass] 30.2 pg 26.7-34.0 [facility] MCHC Auto (RBC) [Mass/Vol]Or dered By: Andrius Giedraitis on 02-09-2025 MCHC (RBC) [Mass/Vol] 31.9 g/dL 29.9-35.2 [facility] MCV Auto (RBC) [Entitic vol] Ordered By: Andrius Giedraitis on 02-09-2025 MCV (RBC) [Entitic vol] 94.8 fL 81.0-99.0 [facility] No Panel InformationOrdered By: Andrius Giedraitis on 02-09-2025 Absolute Basophils (Manual) 0.00 10 3/uL 0.00-0.10 [facility] Eosinophils # (Manual) 0.00 10 3/uL 0.00-0.70 [facility] Lymphocytes # (Manual) 9.84 10 3/uL High 1.20-3.80 [facility] Monocytes # (Manual) 0.96 10 3/uL High 0.30-0.80 [facility] Segmented Neutrophils # (Manual) 8.49 10 3/uL High 1.4-6.5 [facility] Platelet mean volume Auto (B ld) [Entitic vol]Ordered By: Andrius Giedraitis on 02-09-2025 Platelet mean volume (Bld) [Entitic vol] 11.8 fL 9.5-13.5 [facility] Platelets Auto (Bld) [#/Vol] Ordered By: Andrius Giedraitis on 02-09-2025 Platelets (Bld) [#/Vol] 213 10 3/uL 150-450 [facility] RBC Auto (Bld) [#/Vol]Ordere d By: Andrius Giedraitis on 02-09-2025 RBC (Bld) [#/Vol] 3.84 10 6/uL Low 4.20-5.40 [facility] Segmented neutrophils/100 WB C Manual cnt (Bld)Ordered By: Andrius Giedraitis on 02-09-2025 Segmented neutrophils/100 WBC (Bld) 44.0 % 43.0-75.0 [facility] Serum or plasma anion gap de terminationOrdered By: Andrius Giedraitis on 02-09-2025 Anion gap [Moles/Vol] 10.2 mmol/L [facility] Smudge cell detectionOrdered By: Andrius Giedraitis on 02-09-2025 Smudge cells LM Ql (Bld) SEEN [facility] Ambulatory Visit Summaryon 0 02-08-2025 Ambulatory Visit Summary Ambulatory Visi t Summary KATHY WASHBURN [place] :1940 Visit Date:02/08/2025 Ambulatory Visit Instructions Your [...] 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, [place] X Where: [facility] [address] [id number]- You Need to Schedule the Following Appointments Follow Up with Follow up in Spring When: Medications What How Much When Instructions New ciprofloxacin (Cipro 500 mg Tab) 1 Tablets By Mouth Every 12 hours Duration: 7 Days Pickup at [facility] Unchanged estradiol topical (Estrace 0.1 mg/ g Cream) See instructions apply a pea-sized amount vaginally and around the urethra 3x per week for UTI prevention Pickup at [facility] Unchanged trospium (trospium 20 mg oral [...] Drug Ma (more content not included)... Normal [facility] Urology Office/Clinic Noteon 02-08-2025 Urology Office/Clinic [...] (N39.41: Urge incontinence) S/p Botox 100u 08/30/21. [place] sxs only improved for a few weeks [...] E&M of Est. Patient Moderate 30-39 Min 81482 2. 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 Patient Moderate 30-39 Min 25573 Orders: ciprofloxacin, 500 mg = 1 tab(s), Oral, q12hr, X 7 day(s), # 14 tab(s), Refills(s) 0, Pharmacy: [facility], 178, cm, 02/08/25 9:03:00 EDT, Height/Length Dosing, 105.1, kg, 02/08/25 9:03:00 EDT, Weight Dosing estradiol topical, See Instructions, 42.5 gm, Refill(s) 6, apply a pea-sized amount vaginally and around the urethra 3x per week for UTI prevention, [facility], 178, cm, 02/08/25 9:03:00 EDT, Height/Length [...] oral tablet (more content not included)... Normal [facility] Comment on above: Result Comment: Elec tronically Signed By: SUSAN RANDOLPH PA-C\.br\Date and Time Signed: 02/08/25 10:51 EDT [place] barium enemaon 01-19-2025 [place] barium enema [facility] [place] [address] Fluoroscopy Report Signed Patient: Kathy Washburn MR#: [id number] : 1940 Acct:[id number] Age/Sex: 84 / F ADM Date: 01/19/25 Loc: XD Room: Type: [facility] Attending Dr: Moe Betts DO Copies to: [...] Arndt M.D. 01/19/2025 2:20 PM Dictation Location: [facility]--16 Transcribed By: [facility] 01/19/25 1420 Dictated By: Stanford Arndt DO 01/19/25 1417 Signed By: 01/19/25 1420 Normal [facility] Fluoroscopy reportOrdered By : Stanford Arndt on 01-19-2025 RF Unspecified body region Views [facility] [address] [place] [address] [place] [address] Fluoroscopy Report Signed Patient: Kathy Washburn MR#: [id number] : 1940 Acct:[id number] Age/Sex: 84 / F ADM Date: 5 Loc: XD Room: Type: [facility] Attending Dr: Moe Betts DO Copies to: [...] Arndt M.D. 01/19/2025 2:20 PM Dictation Location: [place] [address] Transcribed By: [facility] 01/19/25 1420 Dictated By: Stanford Arndt DO 01/19/25 1417 Signed By: 01/19/25 1420 [facility] Erythrocyte distribution wid th Auto (RBC) [Ratio]Ordered By: Lesli Arevalo on 01-17-2025 Erythrocyte distribution width (RBC) [Ratio] 14.3 % 11.0-15.0 [facility] Estimated glomerular filtrat ion rate (GFR) non- AmericanOrdered By: Lesli Arevalo on 01-17-2025 GFR/1.73 sq M.predicted among non-blacks MDRD (S/P/Bld) [Vol rate/Area] 43 mL/min/{1.73_m2} Low >=60 mL/min/1.73 m 2 [facility] Hematocrit Auto (Bld) [Volum e fraction]Ordered By: Lesli Arevalo on 01-17-2025 Hematocrit (Bld) [Volume fraction] 39.4 % 36.0-48.0 [facility] Hemoglobin [Mass/volume] in BloodOrdered By: Lesli Arevalo on 01-17-2025 Hemoglobin (Bld) [Mass/Vol] 12.7 g/dL 12.0-16.0 [facility] Laboratory - Chemistry and C hemistry - challengeOrdered By: Lesli Arevalo on 01-17-2025 Albumin [Mass/Vol] 3.5 g/dL 3.4-5.0 [facility] Calcium [Mass/Vol] 9.0 mg/dL 8.5-10.1 [facility] Chloride [Moles/Vol] 109 mmol/L High 98-107 [facility] CO2 [Moles/Vol] 29.7 mmol/L 21.0-32.0 [facility] Creatinine [Mass/Vol] 1.20 mg/dL High 0.55-1.02 [facility] GFR/1.73 sq M.predicted MDRD (S/P/Bld) [Vol rate/Area] 52 mL/min/{1.73_m2} Low >=60 mL/min/1.73 m 2 [facility] Glucose [Mass/Vol] 99 mg/dL 74-106 [facility] Magnesium [Mass/Vol] 1.5 mg/dL Low 1.8-2.4 [facility] Potassium [Moles/Vol] 4.9 mmol/L 3.5-5.1 [facility] Sodium [Moles/Vol] 146 mmol/L High 136-145 [facility] Urate [Mass/Vol] 6.2 mg/dL High 2.6-6.0 [facility] Urea nitrogen [Mass/Vol] 35.0 mg/dL High 7.0-18.0 [facility] Urea nitrogen/Creatinine [Mass ratio] 29.2 mg/mg [facility] Bilirubin Ql (U) Negative NEGATIVE [facility] Glucose (U) [Mass/Vol] Negative NEGATIVE [facility] Ketones Ql (U) Negative NEGATIVE [facility] pH (U) 6.0 [pH] 5.0-9.0 [facility] Specific gravity (U) [Rel density] 1.025 1.005-1.025 [facility] Urobilinogen Qn (U) 0.2 {Jose'U}/dL 0.2-1.0 [facility] Laboratory - Specimen inform ationOrdered By: Lesli Arevalo on 01-17-2025 Appearance (U) CLEAR CLEAR [facility] Color (U) DK. YELLOW YELLOW [facility] Laboratory - UrinalysisOrder ed By: Lesli Arevalo on 01-17-2025 Leukocyte esterase Test strip Ql (U) Negative NEGATIVE [facility] Mucus Ql (Urine sed) TRACE Abnormal NONE SEEN [facility] Nitrite Ql (U) Negative NEGATIVE [facility] Protein (U) [Mass/Vol] 41.4 mg/dL High <=11.9 [facility] Protein Ql (U) TRACE mg/dL NEG/TRACE [facility] Leukocytes [#/volume] correc andreina for nucleated erythrocytes in Blood by Automated counOrdered By: Lesli Arevalo on 01-17-2025 WBC corrected for nucl RBC Auto (Bld) [#/Vol] 18.8 10 3/uL High 4.0-11.0 [facility] MCH Auto (RBC) [Entitic mass ]Ordered By: Lesli Arevalo on 01-17-2025 MCH (RBC) [Entitic mass] 30.2 pg 26.7-34.0 [facility] MCHC Auto (RBC) [Mass/Vol]Or dered By: Lesli Arevalo on 01-17-2025 MCHC (RBC) [Mass/Vol] 32.2 g/dL 29.9-35.2 [facility] MCV Auto (RBC) [Entitic vol] Ordered By: Lesli Arevalo on 01-17-2025 MCV (RBC) [Entitic vol] 93.6 fL 81.0-99.0 [facility] No Panel InformationOrdered By: Lesli Arevalo on 01-17-2025 25-Hydroxy Vitamin D Total 61.8 ng/mL [facility] Comment on above: <20 ng/mL Vit D defi cient20-<30 ng/mL Vit D -381 ng/mL Vit D sufficient>100 ng/mL Potential Toxicity Parathyroid Hormone (Intact) 42 pg/mL 15-65 [facility] Comment on above: Performed at: - [facility] [employer] [address] [id number] Director: Narinder Elam PhD, Phone: [phone] Phosphorus Level 4.1 mg/dL 2.6-4.7 [facility] Urine Bacteria SMALL #/HPF Abnormal NONE SEEN [facility] Urine Occult Blood Negative NEGATIVE [facility] Urine Other Casts NONE SEEN #/LPF NONE SEEN [facility] Urine Other Crystals None Seen #/HPF None Seen [facility] Urine Random Creatinine 119.94 mg/dL 20.0 0-300.0 0 [facility] Urine RBC 0-2 #/HPF 0-2 [facility] Urine Squamous Epithelial Cells RARE #/LPF NONE/RARE [facility] Urine WBC 0-2 #/HPF Abnormal NONE SEEN [facility] Platelet mean volume Auto (B ld) [Entitic vol]Ordered By: Lesli Arevalo on 01-17-2025 Platelet mean volume (Bld) [Entitic vol] 11.4 fL 9.5-13.5 [facility] Platelets Auto (Bld) [#/Vol] Ordered By: Lesli Mickey on 01-17-2025 Platelets (Bld) [#/Vol] 217 10 3/uL 150-450 [facility] RBC Auto (Bld) [#/Vol]Ordere d By: Lesli Arevalo on 01-17-2025 RBC (Bld) [#/Vol] 4.21 10 6/uL 4.20-5.40 [facility] Serum or plasma anion gap de terminationOrdered By: Lesli Arevalo on 01-17-2025 Anion gap [Moles/Vol] 12.2 mmol/L [facility] Urine protein/creatinine rat ioOrdered By: Lesli Arevalo on 01-17-2025 Protein/Creatinine (U) [Ratio] 0.35 [facility] CNOVon 12-17-2024 CNOV Office Visit (INEZ ) KATHY WASHBURN ([id number]) 1940 F Date Time Provider Department 12/17/24 10:20 AM ZOHAIB GERMAN During your visit today, we recorded the following information about you: Temperature Blood pressure Weight Height 65 degrees 112/71 103.6 kg 1.727 m Zohaib German MD 12/17/2024 10:49 AM Signed [facility] Date of Service: 12/17/2024 Patient: Kathy Washburn Medical Record: [id number] Primary Care Physician: Ayanna Vicente DO Last [...] 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 There have not been any new health [...] Mixed hyp (more content not included)... Normal [facility] Prakash 11-17-2024 [facility] MADDISONKATHY L ([id number]) 1940 F Date Time Provider Department 11/17/24 [...] to be following with Dr Silva @ [facility] as this is closer to home for patient. Roxie requested to talk to medical records regarding having records sent to Dr Silva transferred call To Heather Todd. [facility] 2:36 PM Signed Records faxed to Dr. Silva [phone]. I called Roxie to let her know [...] Status:Closed by LORI RENNER on 11/17/24 Normal [facility] Acanthocytes [Presence] in B lood by Light microscopyon 11-01-2024 Acanthocytes LM Ql (Bld) Acanthocytes [Presence] in Blood by Light microscopy [facility] Acanthocytes LM Ql (Bld) 1+ [facility] Basophils/100 WBC Manual cnt (Bld)on 11-01-2024 Basophils/100 WBC (Bld) Basophils/100 leukocytes in Blood by Manual count 0.2-2.0 [facility] Basophils/100 WBC (Bld) 2.0 % 0.2-2.0 [facility] Cholesterol in LDL Calc [Mas s/Vol]on 11-01-2024 Cholesterol in LDL [Mass/Vol] Cholesterol in LDL [Mass/volume] in Serum or Plasma by calculation [facility] Comment on above: <100 mg/dl [id number] 0-129 mg/dl NEAR OR ABOVE [id number] mg/dl BORDERLINE [id number] mg/dl HIGH>190 mg/dl VERY HIGH Cholesterol in LDL [Mass/Vol] 29.2 mg/dL [facility] Comment on above: <100 mg/dl [id number] 0-129 mg/dl NEAR OR ABOVE [id number] mg/dl BORDERLINE [id number] mg/dl HIGH>190 mg/dl VERY HIGH Cholesterol in VLDL Calc [Ma ss/Vol]on 11-01-2024 Cholesterol in VLDL [Mass/Vol] Cholesterol in VLDL [Mass/volume] in Serum or Plasma by calculation [facility] Cholesterol in VLDL [Mass/Vol] 22.8 mg/dL [facility] Eosinophils/100 WBC Manual c nt (Bld)on 11-01-2024 Eosinophils/100 WBC (Bld) Eosinophils/100 leukocytes in Blood by Manual count 0.9-7.0 [facility] Eosinophils/100 WBC (Bld) 1.0 % 0.9-7.0 [facility] Erythrocyte distribution wid th Auto (RBC) [Ratio]on 11-01-2024 Erythrocyte distribution width (RBC) [Ratio] 14.6 % 11.0-15.0 [facility] Estimated glomerular filtrat ion rate (GFR) non- Americanon 11-01-2024 GFR/1.73 sq M.predicted among non-blacks MDRD (S/P/Bld) [Vol rate/Area] Estimated glomerular filtration rate (GFR) non- Low >=60 mL/min/1.73 m 2 [facility] GFR/1.73 sq M.predicted among non-blacks MDRD (S/P/Bld) [Vol rate/Area] 36 mL/min/{1.73_m2} Low >=60 mL/min/1.73 m 2 [facility] Globulin Calc (S) [Mass/Vol] on 11-01-2024 Globulin (S) [Mass/Vol] Serum globulin measurement by calculation (mass/volume) [facility] Globulin (S) [Mass/Vol] 3.4 g/dL [facility] Glucose mean value [Mass/vol ume] in Blood Estimated from glycated hemoglobinon 11-01-2024 Average glucose Estimated from glycated hemoglobin (Bld) [Mass/Vol] Glucose mean value [Mass/volume] in Blood Estimated from glycated hemoglobin [facility] Average glucose Estimated from glycated hemoglobin (Bld) [Mass/Vol] 154 mg/dL [facility] Hematocrit Auto (Bld) [Volum e fraction]on 11-01-2024 Hematocrit (Bld) [Volume fraction] 41.5 % 36.0-48.0 [facility] Hemoglobin A1c percentageon 11-01-2024 HbA1c (Bld) [Mass fraction] Hemoglobin A1c percentage High 4.5-6.2 [facility] Comment on above: ADA RECOMMENDED LIMI T 4.0 - 6.0ADA THERAPEUTIC TARGET < 7.0ACTION SUGGESTED> 7.0 HbA1c (Bld) [Mass fraction] 7.0 % High 4.5-6.2 [facility] Comment on above: ADA RECOMMENDED LIMI T 4.0 - 6.0ADA THERAPEUTIC TARGET < 7.0ACTION SUGGESTED> 7.0 Hemoglobin [Mass/volume] in Bloodon 11-01-2024 Hemoglobin (Bld) [Mass/Vol] 13.2 g/dL 12.0-16.0 [facility] Laboratory - Chemistry and C hemistry - challengeon 11-01-2024 Albumin [Mass/Vol] 3.3 g/dL Low 3.4-5.0 [facility] ALP [Catalytic activity/Vol] 89 U/L 46-116 [facility] ALT [Catalytic activity/Vol] 43 U/L 14-59 [facility] AST [Catalytic activity/Vol] 26 U/L 15-37 [facility] Bilirubin [Mass/Vol] 0.3 mg/dL 0.2-1.0 [facility] Calcium [Mass/Vol] 9.0 mg/dL 8.5-10.1 [facility] Chloride [Moles/Vol] 109 mmol/L High 98-107 [facility] Cholesterol [Mass/Vol] 111 mg/dL <=200 [facility] Cholesterol in HDL [Mass/Vol] 59 mg/dL 40-60 [facility] Comment on above: > or =60 mg/dl - LOW CARDIOVASCULAR RISK<40 mg/dl - HIGH CARDIOVASCULAR RISK CO2 [Moles/Vol] 29.4 mmol/L 21.0-32.0 [facility] Creatinine [Mass/Vol] 1.39 mg/dL High 0.55-1.02 [facility] Free T4 [Mass/Vol] 1.14 ng/dL 0.76-1.46 [facility] GFR/1.73 sq M.predicted MDRD (S/P/Bld) [Vol rate/Area] 44 mL/min/{1.73_m2} Low >=60 mL/min/1.73 m 2 [facility] Glucose [Mass/Vol] 88 mg/dL 74-106 [facility] Potassium [Moles/Vol] 5.4 mmol/L High 3.5-5.1 [facility] Protein [Mass/Vol] 6.7 g/dL 6.4-8.2 [facility] Sodium [Moles/Vol] 143 mmol/L 136-145 [facility] Triglyceride [Mass/Vol] 114 mg/dL <=150 [facility] TSH Qn 0.958 m[IU]/L 0.358-3.740 [facility] Urea nitrogen [Mass/Vol] 44.0 mg/dL High 7.0-18.0 [facility] Urea nitrogen/Creatinine [Mass ratio] 31.7 mg/mg [facility] Laboratory - Hematology and Cell countson 11-01-2024 Band form neutrophils/100 WBC (Bld) 1.0 % 0-5 [facility] Lymphocytes/100 WBC (Bld) 66.0 % High 20.5-60.0 [facility] Monocytes/100 WBC (Bld) 7.0 % 1.7-12.0 [facility] Leukocytes [#/volume] correc andreina for nucleated erythrocytes in Blood by Automated counon 11-01-2024 WBC corrected for nucl RBC Auto (Bld) [#/Vol] 21.6 10 3/uL High 4.0-11.0 [facility] MCH Auto (RBC) [Entitic mass ]on 11-01-2024 MCH (RBC) [Entitic mass] 30.2 pg 26.7-34.0 [facility] MCHC Auto (RBC) [Mass/Vol]on 11-01-2024 MCHC (RBC) [Mass/Vol] 31.8 g/dL 29.9-35.[address] [facility] MCV Auto (RBC) [Entitic vol] on 11-01-2024 MCV (RBC) [Entitic vol] 95.0 fL 81.0-99.0 [facility] Microalbumin [Mass/volume] i n Urineon 11-01-2024 Albumin DL <= 20 mg/L (U) [Mass/Vol] Microalbumin [Mass/volume] in Urine <=30.0 [facility] Albumin DL <= 20 mg/L (U) [Mass/Vol] 1.3 mg/dL <=30.0 [facility] No Panel Informationon 11-01 Absolute Basophils (Manual) 0.43 10 3/uL High 0.00-0.10 [facility] Band Neutrophils # (Manual) 0.2 10 3/uL 0.0-0.3 [facility] Eosinophils # (Manual) 0.21 10 3/uL 0.00-0.70 [facility] Free Triiodothyronine 1.62 pg/mL Low 2.18-3.98 [facility] Lymphocytes # (Manual) 14.25 10 3/uL High 1.20-3.80 [facility] Monocytes # (Manual) 1.51 10 3/uL High 0.30-0.80 [facility] Segmented Neutrophils # (Manual) 4.96 10 3/uL 1.4-6.5 [facility] Urine Random Creatinine 93.71 mg/dL 20.0 0-300.0 0 [facility] Ovalocyte detectionon 2024 Ovalocytes LM Ql (Bld) Ovalocyte detection [facility] Ovalocytes LM Ql (Bld) 1+ [facility] Platelet mean volume Auto (B ld) [Entitic vol]on 11-01-2024 Platelet mean volume (Bld) [Entitic vol] 11.0 fL 9.5-13.5 [facility] Platelets Auto (Bld) [#/Vol] on 11-01-2024 Platelets (Bld) [#/Vol] 239 10 3/uL 150-450 [facility] Poikilocytosis [Presence] in Blood by Light microscopyon 11-01-2024 Poikilocytosis LM Ql (Bld) Poikilocytosis [Presence] in Blood by Light microscopy [facility] Poikilocytosis LM Ql (Bld) 1+ [facility] RBC Auto (Bld) [#/Vol]on RBC (Bld) [#/Vol] 4.37 10 6/uL 4.20-5.40 [facility] Segmented neutrophils/100 WB C Manual cnt (Bld)on 11-01-2024 Segmented neutrophils/100 WBC (Bld) Manual blood segmented neutrophils/100 leukocytes Low 43.0-75.0 [facility] Segmented neutrophils/100 WBC (Bld) 23.0 % Low 43.0-75.0 [facility] Serum or plasma albumin/glob ulin mass ratioon 11-01-2024 Albumin/Globulin [Mass ratio] Serum or plasma albumin/globulin mass ratio [facility] Albumin/Globulin [Mass ratio] 1.0 {ratio} [facility] Serum or plasma anion gap de terminationon 11-01-2024 Anion gap [Moles/Vol] Serum or plasma an ion gap determination [facility] Anion gap [Moles/Vol] 10.0 mmol/L [facility] Serum or plasma total choles terol/high density lipoprotein (HDL) cholesterol mass faustino 11-01-2024 Cholesterol.total/Choles terol in HDL [Mass ratio] Serum or plasma total cholesterol/high density lipoprotein (HDL) cholesterol mass rat [facility] Comment on above: 3.3 - 4.4 LOW RISK4. 4 - 7.1 AVERAGE RISK7.1 - 11.0 MODERATE RISK>11.0 HIGH RISK Cholesterol.total/Choles terol in HDL [Mass ratio] 1.9 {ratio} [facility] Comment on above: 3.3 - 4.4 LOW RISK4. 4 - 7.1 AVERAGE RISK7.1 - 11.0 MODERATE RISK>11.0 HIGH RISK Urine microalbumin/creatinin e mass ratioon 11-01-2024 Albumin/Creatinine DL <= 20 mg/L (U) [Mass ratio] Urine microalbumin/creatini ne mass ratio 0.0-29.9 [facility] Comment on above: NO MICROALBUMINURIA 0-29 MG/GCLINICAL MICROALBUMINURIA 30-300 MG/GMACROALBUMINURIA >300 MG/G Albumin/Creatinine DL <= 20 mg/L (U) [Mass ratio] 13.8 mg/g 0.0-29.9 [facility] Comment on above: NO MICROALBUMINURIA 0-29 MG/GCLINICAL MICROALBUMINURIA 30-300 MG/GMACROALBUMINURIA >300 MG/G Reminderson 09-15-2024 Reminders Reminders From: Lori Bledsoe To: EU - Administrative; Sent: 02/24/2024 10:44:10 EDT Show up: 06/25/2024 09:43:00 EST Subject: 6 MO F/U Due Date/Time: 08/26/2024 09:43:00 EST Reminder/Recall PT SEEN ON 02/24/2024 BY JINNY IN [place]. PT WILL NEED A 6 MO F/U. APPT DUE BY 08/26/2024 NO ANSWER Pt is scheduled for 02/14/25. Normal [facility] Laboratory - Chemistry and C hemistry - challengeon 09-03-2024 Bilirubin Ql (U) Negative NEGATIVE [facility] Glucose (U) [Mass/Vol] Negative NEGATIVE [facility] Ketones Ql (U) TRACE mg/dL Abnormal NEGATIVE [facility] pH (U) 5.5 [pH] 5.0-9.0 [facility] Specific gravity (U) [Rel density] 1.025 1.005-1.025 [facility] Urobilinogen Qn (U) 0.2 {Jose'U}/dL 0.2-1.0 [facility] Laboratory - Specimen inform ationon 09-03-2024 Appearance (U) CLEAR CLEAR [facility] Color (U) LT YELLOW YELLOW [facility] Laboratory - Urinalysison Leukocyte esterase Test strip Ql (U) Negative NEGATIVE [facility] Nitrite Ql (U) Negative NEGATIVE [facility] Protein Ql (U) TRACE mg/dL NEG/TRACE [facility] No Panel Informationon 09-03 Urine Occult Blood Negative NEGATIVE [facility] Urine Cultureon 09-03-2024 Bacteria identified Cx Nom (U) 75,000 colonies/ml mixed bacterial skin contaminants 2 Days PERFORMED BY: [place] [address] PATHOLOGIST EXHAUSTER IDA ARMIJO M.D. Normal [facility] Comment on above: Performed By: #### C UU #### [address] Ambulatory Visit Summaryon 0 08-16-2024 Ambulatory [...] SUSAN RANDOLPH PA-C Where: [facility] [id number]- You Need to Schedule the Following Appointments Follow Up with JAX BECKMAN ALMA ROSA BATISTA When: In 6 months Where: [address] [place] [address] Medications What How Much When Instructions New estradiol topical (Estrace 0.1 mg/ g Cream) See instructions Refills: 6 apply a pea-sized amount vaginally and around the urethra 3x per week for UTI prevention Pickup at [facility] Unchanged acetaminophen-oxycodo ne (acetaminophen-oxycod one 325 [...] Discount D (more content not included)... Normal [facility] Urology Office/Clinic Noteon 08-16-2024 Urology Office/Clinic [...] will consider cystoscopy w possible UD. Ordered: [id number] Measure Post Void residual urine and/or bladder capacity by US- non-imaging Complex E&M Add on G2211 E&M of Est. Patient Moderate 30-39 Min 62874 Urnls Dip Stick Auto w/o Microscopy POC 71026 2. Urgency incontinence (N39.41: Urge incontinence) S/p Botox 100u 08/30/21. [place] sxs only improved for a few weeks [...] E&M of Est. Patient Moderate 30-39 Min [id number] Orders: estradiol topical, See Instructions, 42.5 gm, Refill(s) 6, apply a pea-sized amount vaginally and around the urethra 3x per week for UTI prevention, [employer] [facility], 178, cm, 08/16/24 9:10:00 EST, Height/Length Dosing, 103, kg, 08/16/24 9:10:00 EST, Weight Do... Follow-up With When Contact Information SUSAN RANDOLPH PA-C, URL In 6 months [address] [place] [address] Additional Instructions: Patient Education Antibiotic [...] ne 325 (more content not included)... Normal [facility] Comment on above: Result Comment: Elec tronically Signed By: SUSAN RANDOLPH PA-C\.br\Date and Time Signed: 08/16/24 10:05 EST Appearance of UrineOrdered B y: Ayanna Vicente on 08-10-2024 Appearance (U) Urine appearance Abnormal Clear [facility] Bacteria [Presence] in Urine by AutomatedOrdered By: Ayanna Vicente on 08-10-2024 Bacteria Auto Ql (U) Bacteria [Presence] in Urine by Automated None Seen [facility] Bilirubin Test strip Ql (U)O rdered By: Ayanna Vicente on 08-10-2024 Bilirubin Ql (U) Bilirubin.total [Presence] in Urine by Test strip Negative [facility] Color Auto (U)Ordered By: Vasile Vicente on 08-10-2024 Color (U) Color of Urine by Auto Abnormal Yellow [facility] Dipstick and Microscopicon 0 08-10-2024 Appearance (U) Cloudy Critically abnormal Clear [facility] Comment on above: Order Comment: Name Collection Type:: Clean-Voided Midstream Performed By: #### A DDONUAPLUS, CUU #### [place] [address] [place] Bacteria,Urine None Seen Normal None Seen [facility] Comment on above: Order Comment: Name Collection Type:: Clean-Voided Midstream Performed By: #### A DDONUAPLUS, CUU #### [place] [address] [place] Bilirubin,Urine Negative Normal Negative [facility] Comment on above: Order Comment: Name Collection Type:: Clean-Voided Midstream Performed By: #### A DDONUAPLUS, CUU #### [place] [address] [place] Color (U) Dark-Yellow Critically abnormal Yellow [facility] Comment on above: Order Comment: Name Collection Type:: Clean-Voided Midstream Performed By: #### A DDONUAPLUS, CUU #### [address] Glucose Ql (U) Normal Normal Normal [facility] Comment on above: Order Comment: Name Collection Type:: Clean-Voided Midstream Performed By: #### A DDONUAPLUS, CUU #### [place] [address] [place] Hyaline Casts,Urine 0 [LPF] Normal 0-8 [facility] Comment on above: Order Comment: Name Collection Type:: Clean-Voided Midstream Performed By: #### A DDONUAPLUS, CUU #### [place] [address] [place] Ketones Ql (U) Negative Normal Negative [facility] Comment on above: Order Comment: Name Collection Type:: Clean-Voided Midstream Performed By: #### A DDONUAPLUS, CUU #### [place] [address] Leukocyte esterase Test strip Ql (U) 4+ High Negative [facility] Comment on above: Order Comment: Name Collection Type:: Clean-Voided Midstream Performed By: #### A DDONUAPLUS, CUU #### [place] [address] [place] Mucus,Urine Rare Normal [facility] Comment on above: Order Comment: Name Collection Type:: Clean-Voided Midstream Result Comment: PERF ORMED BY: [place] [address] PATHOLOGIST EXHAUSTER IDA ARMIJO M.D. Performed By: #### A DDONUAPLUS, CUU #### [address] Nitrite,Urine Positive High Negative [facility] Comment on above: Order Comment: Name Collection Type:: Clean-Voided Midstream Performed By: #### A DDONUAPLUS, CUU #### [place] [address] [place] Occult Blood,Urine Negative Normal Negative [facility] Comment on above: Order Comment: Name Collection Type:: Clean-Voided Midstream Result Comment: PERF ORMED BY: [place] [address] PATHOLOGIST EXHAUSTER IDA ARMIJO M.D. Performed By: #### A DDONUAPLUS, CUU #### [address] pH (U) 6.0 [pH] Normal 5.0-9.0 [facility] Comment on above: Order Comment: Name Collection Type:: Clean-Voided Midstream Performed By: #### A DDONUAPLUS, CUU #### [address] Protein (U) [Mass/Vol] 30 mg/dL High Negative [facility] Comment on above: Order Comment: Name Collection Type:: Clean-Voided Midstream Performed By: #### A DDONUAPLUS, CUU #### [address] RBC,Urine 1 [HPF] Normal 0-4 [facility] Comment on above: Order Comment: Name Collection Type:: Clean-Voided Midstream Performed By: #### A DDONUAPLUS, CUU #### [address] Specificy [place],Urine 1.022 Normal 1.001-1.030 [facility] Comment on above: Order Comment: Name Collection Type:: Clean-Voided Midstream Performed By: #### A DDONUAPLUS, CUU #### [address] Squamous Epithelial Cell,Urine 1 [HPF] Normal 0-2 [facility] Comment on above: Order Comment: Name Collection Type:: Clean-Voided Midstream Performed By: #### A DDONUAPLUS, CUU #### [address] Urobilinogen,Urine Normal Normal Normal [facility] Comment on above: Order Comment: Name Collection Type:: Clean-Voided Midstream Performed By: #### A DDONUAPLUS, CUU #### [address] WBC CLUMP, Urine Many High None Seen [facility] Comment on above: Order Comment: Name Collection Type:: Clean-Voided Midstream Performed By: #### A DDONUAPLUS, CUU #### [address] WBC,Urine Innumerable High 0-4 [facility] Comment on above: Order Comment: Name Collection Type:: Clean-Voided Midstream Performed By: #### A DDONUAPLUS, CUU #### [address] Epithelial cells.squamous [# /area] in Urine sediment by Automated countOrdered By: Ayanna Vicente on 08-10-2024 Epithelial cells.squamous Auto (Urine sed) [#/Area] Epithelial cells.squamous [#/area] in Urine sediment by Automated count 0-2 [facility] Erythrocytes [#/area] in Uri ne sediment by Automated countOrdered By: Ayanna Vicente on 08-10-2024 RBC Auto (Urine sed) [#/Area] Erythrocytes [#/area] in Urine sediment by Automated count 0-4 [facility] Glucose [Mass/volume] in Uri ne by Test stripOrdered By: Ayanna Vicente on 08-10-2024 Glucose Test strip (U) [Mass/Vol] Glucose [Mass/volume] in Urine by Test strip Normal [facility] Hemoglobin Test strip Ql (U) Ordered By: Ayanna Vicente on 08-10-2024 Hemoglobin Ql (U) Hemoglobin [Presence ] in Urine by Test strip Negative [facility] Hyaline casts [#/area] in Ur ine sediment by Automated countOrdered By: Ayanna Vicente on 08-10-2024 Hyaline casts Auto (Urine sed) [#/Area] Hyaline casts [#/area] in Urine sediment by Automated count 0-8 [facility] Ketones Test strip Ql (U)Ord ered By: Ayanna Vicente on 08-10-2024 Ketones Ql (U) Ketones [Presence] i n Urine by Test strip Negative [facility] Leukocyte clumps [Presence] in Urine by AutomatedOrdered By: Ayanna Vicente on 08-10-2024 Leukocyte clumps Auto Ql (U) Leukocyte clumps [Presence] in Urine by Automated High None Seen [facility] Leukocyte esterase [Presence ] in Urine by Test stripOrdered By: Ayanna Vicente on 08-10-2024 Leukocyte esterase Test strip Ql (U) Leukocyte esterase [Presence] in Urine by Test strip High Negative [facility] Leukocytes [#/area] in Urine sediment by Automated countOrdered By: Ayanna Vicente on 08-10-2024 WBC Auto (Urine sed) [#/Area] Leukocytes [#/area] in Urine sediment by Automated count High 0-4 [facility] Mucus [Presence] in Urine by AutomatedOrdered By: Ayanna Vicente on 08-10-2024 Mucus Auto Ql (U) Mucus [Presence] in Urine by Automated [facility] Nitrite Test strip Ql (U)Ord ered By: Ayanna Vicente on 01-28-2025 Nitrite Ql (U) Nitrite [Presence] i n Urine by Test strip High Negative [facility] Protein Test strip (U) [Mass /Vol]Ordered By: Ayanna Vicente on 08-10-2024 Protein (U) [Mass/Vol] Protein [Mass/vol ume] in Urine by Test strip High Negative [facility] Specific gravity Test strip (U) [Rel density]Ordered By: Ayanna Vicente on 08-10-2024 Specific gravity (U) [Rel density] Specific gravity of Urine by Test strip 1.001-1.030 [facility] Urine Cultureon 08-10-2024 Bacteria identified Cx Nom (U) ORGANISM: Escherichia coli (O:ESCCOL) [place] Count >100,000 Aerobic CORNELIA Charge (NMIC56) ---- [...] TO ALL B-LACTAM DRUGS. PERFORMED BY: [address] [place] [address] PATHOLOGIST EXHAUSTER IDA ARMIJO M.D. Normal [facility] Comment on above: Performed By: #### A PERNELL JOINER #### [facility] [address] Urine cultureOrdered By: Aftab Vicente on 08-10-2024 Bacteria identified Cx Nom (U) Escherichia coli Abnormal [facility] Urobilinogen Test strip (U) [Mass/Vol]Ordered By: Ayanna Vicente on 08-10-2024 Urobilinogen (U) [Mass/Vol] Urobilinogen [Mass/volume] in Urine by Test strip Normal [facility] pH Test strip (U)Ordered By: Ayanna Vicente on 08-10-2024 pH (U) pH of Urine by Test strip 5.0-9.0 [facility] ALL THYROID STIM HORMONEon 1 08-23-2023 TSH Qn 2.632 m[IU]/L [facility] Estimated glomerular filtrat ion rate (GFR) non- Americanon 06-22-2024 GFR/1.73 sq M.predicted among non-blacks MDRD (S/P/Bld) [Vol rate/Area] Estimated glomerular filtration rate (GFR) non- Low >=60 mL/min/1.73 m 2 [facility] Laboratory - Chemistry and C hemistry - challengeon 06-22-2024 Calcium [Mass/Vol] 9.2 mg/dL 8.5-10.1 [facility] Chloride [Moles/Vol] 105 mmol/L 98-107 [facility] CO2 [Moles/Vol] 30.0 mmol/L 21.0-32.0 [facility] Cobalamin (Vitamin B12) [Mass/Vol] 721 pg/mL 232-1245 [facility] Comment on above: Performed at: - [facility] [address] [id number] Director: Narinder Elam PhD, Phone: [phone] Creatinine [Mass/Vol] 1.36 mg/dL High 0.55-1.02 [facility] GFR/1.73 sq M.predicted MDRD (S/P/Bld) [Vol rate/Area] 45 mL/min/{1.73_m2} Low >=60 mL/min/1.73 m 2 [facility] Glucose [Mass/Vol] 125 mg/dL High 74-106 [facility] Potassium [Moles/Vol] 4.8 mmol/L 3.5-5.1 [facility] Sodium [Moles/Vol] 141 mmol/L 136-145 [facility] TSH Qn 2.632 m[IU]/L 0.358-3.740 [facility] Urea nitrogen [Mass/Vol] 28.0 mg/dL High 7.0-18.0 [facility] Urea nitrogen/Creatinine [Mass ratio] 20.6 mg/mg [facility] Serum or plasma anion gap de terminationon 06-22-2024 Anion gap [Moles/Vol] Serum or plasma an ion gap determination [facility] Basophils/100 WBC Manual cnt (Bld)on 06-15-2024 Basophils/100 WBC (Bld) Basophils/100 leukocytes in Blood by Manual count 0.2-2.0 [facility] Eosinophils/100 WBC Manual c nt (Bld)on 06-15-2024 Eosinophils/100 WBC (Bld) Eosinophils/100 leukocytes in Blood by Manual count 0.9-7.0 [facility] Erythrocyte distribution wid th Auto (RBC) [Ratio]on 06-15-2024 Erythrocyte distribution width (RBC) [Ratio] Erythrocyte distribution width [Ratio] by Automated count 11.0-15.0 [facility] Estimated glomerular filtrat ion rate (GFR) non- Americanon 06-15-2024 GFR/1.73 sq M.predicted among non-blacks MDRD (S/P/Bld) [Vol rate/Area] Estimated glomerular filtration rate (GFR) non- Low >=60 mL/min/1.73 m 2 [facility] Globulin Calc (S) [Mass/Vol] on 06-15-2024 Globulin (S) [Mass/Vol] Serum globulin measurement by calculation (mass/volume) [facility] Hematocrit Auto (Bld) [Volum e fraction]on 06-15-2024 Hematocrit (Bld) [Volume fraction] Hematocrit [Volume Fraction] of Blood by Automated count 36.0-48.0 [facility] Hemoglobin [Mass/volume] in Bloodon 06-15-2024 Hemoglobin (Bld) [Mass/Vol] Hemoglobin [Mass/volume] in Blood 12.0-16.0 [facility] Curt 06-15-2024 L - -------- Specimen: [id number] Received: 06/16/24 Status: JEFFERY Lemon Num: [id number] Spec Type: Impression Subm Dr: Tri Ag DO Tissues: PATHPER Procedures: PATHREVIEW -------- Age/ Patient Sex Location Account Attending Physician -------- Kathy Washburn 83/F [facility] [id number] Tri Ag DO -------- SPEC NUM: [id number] RECD: 06/16/24 STATUS: JEFFERY LEMON NUM: [id number] JESSICA: 06/15/24- SUBM DR: Tri Ag DO ENTERED: 06/16/24 [facility] DR: Wilda,Lab SPEC TYPE: Impression DEPT: [facility] Lance ENTERED BY: [id number] RECV BY: [id number] ORDERED: PATHREVIEW ORDERED: PATHREVIEW Pathologist Review Peripheral blood smear evaluation: - Severe lymphocytosis with atypical lymphocytes and smudges consistent with CLL, flow cytometry if clinically indicated. - Red blood cell and Platelet: Unremarkable. CPT: 67928 Jose Angel Kc MD 06/16/24 -------- -------- Specimen: [id number] Received: 06/16/24 Status: JEFFERY Argenis Num: [id number] Spec Type: Impression Subm Dr: Tri Ag DO Tissues: PATHPER Procedures: PATHREVIEW -------- Patient: Kathy Washburn [id number] (Continued) -------- Signed (signature on file) Jose Angel Kc MD 06/16/24 1635 Normal [facility] Laboratory - Chemistry and C hemistry - challengeon 06-15-2024 Albumin [Mass/Vol] 3.5 g/dL 3.4-5.0 [facility] ALP [Catalytic activity/Vol] 103 U/L 46-116 [facility] ALT [Catalytic activity/Vol] 34 U/L 14-59 [facility] AST [Catalytic activity/Vol] 25 U/L 15-37 [facility] Bilirubin [Mass/Vol] 0.3 mg/dL 0.2-1.0 [facility] Calcium [Mass/Vol] 9.1 mg/dL 8.5-10.1 [facility] Chloride [Moles/Vol] 108 mmol/L High 98-107 [facility] CO2 [Moles/Vol] 28.4 mmol/L 21.0-32.0 [facility] Creatinine [Mass/Vol] 1.42 mg/dL High 0.55-1.02 [facility] GFR/1.73 sq M.predicted MDRD (S/P/Bld) [Vol rate/Area] 43 mL/min/{1.73_m2} Low >=60 mL/min/1.73 m 2 [facility] Glucose [Mass/Vol] 140 mg/dL High 74-106 [facility] Potassium [Moles/Vol] 4.3 mmol/L 3.5-5.1 [facility] Protein [Mass/Vol] 6.9 g/dL 6.4-8.2 [facility] Sodium [Moles/Vol] 143 mmol/L 136-145 [facility] Urea nitrogen [Mass/Vol] 31.0 mg/dL High 7.0-18.0 [facility] Urea nitrogen/Creatinine [Mass ratio] 21.8 mg/mg [facility] Laboratory - Hematology and Cell countson 06-15-2024 Lymphocytes/100 WBC (Bld) 54.0 % 20.5-60.0 [facility] Monocytes/100 WBC (Bld) 0.0 % Low 1.7-12.0 [facility] Leukocytes [#/volume] correc andreina for nucleated erythrocytes in Blood by Automated counon 06-15-2024 WBC corrected for nucl RBC Auto (Bld) [#/Vol] Leukocytes [#/volume] corrected for nucleated erythrocytes in Blood by Automated coun High 4.0-11.0 [facility] MCH Auto (RBC) [Entitic mass ]on 06-15-2024 MCH (RBC) [Entitic mass] MCH [Entitic ma ss] by Automated count 26.7-34.0 [facility] MCHC Auto (RBC) [Mass/Vol]on 06-15-2024 MCHC (RBC) [Mass/Vol] MCHC [Mass/volume] by Automated count 29.9-35.2 [facility] [facility] MCV Auto (RBC) [Entitic vol] on 06-15-2024 MCV (RBC) [Entitic vol] MCV [Entitic vol ume] by Automated count 81.0-99.0 [facility] No Panel Informationon 06-15 Absolute Basophils (Manual) 0.22 10 3/uL High 0.00-0.10 [facility] Add Manual Differential See comment [facility] Comment on above: SEE SCANNED REPORT Eosinophils # (Manual) 0.44 10 3/uL 0.00-0.70 [facility] Lymphocytes # (Manual) 11.88 10 3/uL High 1.20-3.80 [facility] Monocytes # (Manual) 0.00 10 3/uL Low 0.30-0.80 [facility] Reactive Lymphocytes 1.76 [facility] Reactive Lymphocytes 8.0 % [facility] Segmented Neutrophils # (Manual) 7.70 10 3/uL High 1.4-6.5 [facility] Platelet mean volume Auto (B ld) [Entitic vol]on 06-15-2024 Platelet mean volume (Bld) [Entitic vol] Platelet mean volume [Entitic volume] in Blood by Automated count 9.5-13.5 [facility] Platelets Auto (Bld) [#/Vol] on 06-15-2024 Platelets (Bld) [#/Vol] Platelets [#/vol ume] in Blood by Automated count 150-450 [facility] RBC Auto (Bld) [#/Vol]on RBC (Bld) [#/Vol] Erythrocytes [#/volume] in Blood by Automated count 4.20-5.40 [facility] Segmented neutrophils/100 WB C Manual cnt (Bld)on 06-15-2024 Segmented neutrophils/100 WBC (Bld) Manual blood segmented neutrophils/100 leukocytes Low 43.0-75.0 [facility] Serum or plasma albumin/glob ulin mass ratioon 06-15-2024 Albumin/Globulin [Mass ratio] Serum or plasma albumin/globulin mass ratio [facility] Serum or plasma anion gap de terminationon 06-15-2024 Anion gap [Moles/Vol] Serum or plasma an ion gap determination [facility] Smudge cell detectionon Smudge cells LM Ql (Bld) Smudge cell detection [facility] Basophils Auto (Bld) [#/Vol] on 05-26-2024 Basophils (Bld) [#/Vol] Automated basoph il count <0.11 [facility] Basophils/100 WBC Auto (Bld) on 05-26-2024 Basophils/100 WBC (Bld) Automated basophil % [facility] Blood manual differential co mment interpretation narrativeon 05-26-2024 Manual differential comment Himanshu (Bld) [Interp] Blood manual differential comment interpretation narrative [facility] CBC W Auto Differential pane l (Bld)on 05-26-2024 Basophils (Bld) [#/Vol] 0.00 10*3/uL Normal <0.11 [facility] Comment on above: Order Comment: Speci men Type: BLOOD SPECIMEN [facility]ing Facility: [facility] Address: [address] [place] [address] Performed By: #### 5 7021-8 #### [facility] CLIA [id number] [address] [place] [address] LAB CLIA [id number] [address] [place] [address] [place] Basophils/100 WBC (Bld) 0.0 % Normal C [facility] Comment on above: Order Comment: Speci men Type: BLOOD SPECIMEN Ordering Facility: [facility] Address: [address] [place] [address] Performed By: #### 5 7021-8 #### [facility] CLIA [id number] [address] [place] [address] LAB CLIA [id number] [address] [place] [address] [place] Differential cell count method Nom (Bld) Manual Normal [facility] Comment on above: Order Comment: Speci men Type: BLOOD SPECIMEN Ordering Facility: [facility] Address: [address] [place] [address] Performed By: #### 5 7021-8 #### [facility] CLIA [id number] [address] [place] [address] LAB CLIA [id number] [address] [place] [address] [place] Eosinophils (Bld) [#/Vol] 0.19 10*3/uL Normal <0.46 [facility] Comment on above: Order Comment: Speci men Type: BLOOD SPECIMEN Ordering Facility: [facility] Address: [address] [place] [address] Performed By: #### 5 7021-8 #### [facility] CLIA [id number] [address] [place] [address] [facility] CLIA [id number] [address] [place] [address] [place] Eosinophils/100 WBC (Bld) 1.0 % Normal [facility] Comment on above: Order Comment: Speci men Type: BLOOD SPECIMEN Ordering Facility: [facility] Address: [address] [place] [address] Performed By: #### 5 7021-8 #### [facility] CLIA [id number] [address] [place] [address] LAB CLIA [id number] [address] [place] [address] [place] Erythrocyte distribution width (RBC) [Ratio] 14.2 % Normal 11.5-15.0 [facility] Comment on above: Order Comment: Speci men Type: BLOOD SPECIMEN Ordering Facility: [facility] Address: [address] [place] [address] Performed By: #### 5 7021-8 #### [facility] CLIA [id number] [address] [place] [address] LAB CLIA [id number] [address] [place] [address] [place] Hematocrit (Bld) [Volume fraction] 38.4 % Normal 36.0-46.0 [facility] Comment on above: Order Comment: Speci men Type: BLOOD SPECIMEN Ordering Facility: [facility] Address: [address] [place] [address] Performed By: #### 5 7021-8 #### [facility] CLIA [id number] [address] [place] [address] LAB CLIA [id number] [address] [place] [address] [place] Hemoglobin (Bld) [Mass/Vol] 12.7 g/dL Normal 11.5-15.5 [facility] Comment on above: Order Comment: Speci men Type: BLOOD SPECIMEN Ordering Facility: [facility] Address: [address] [place] [address] Performed By: #### 5 7021-8 #### [facility] CLIA [id number] [address] [place] [address] LAB CLIA [id number] [address] [place] [address] [place] Lymphocytes (Bld) [#/Vol] 14.61 10*3/uL High 1.00-4.00 [facility] Comment on above: Order Comment: Speci men Type: BLOOD SPECIMEN Ordering Facility: [facility] Address: [address] [place] [address] Performed By: #### 5 7021-8 #### [facility] CLIA [id number] [address] [place] [address] LAB CLIA [id number] [address] [place] [address] [place] Lymphocytes/100 WBC (Bld) 76.0 % Normal [facility] Comment on above: Order Comment: Speci men Type: BLOOD SPECIMEN Ordering Facility: [facility] Address: [address] [place] [address] Performed By: #### 5 7021-8 #### [facility] CLIA [id number] [address] [place] [address] LAB CLIA [id number] [address] [place] [address] [place] MCH (RBC) [Entitic mass] 30.0 pg Normal 26.0-34.0 [facility] Comment on above: Order Comment: Speci men Type: BLOOD SPECIMEN Ordering Facility: [facility] Address: [address] [place] [address] Performed By: #### 5 7021-8 #### [facility] CLIA [id number] [address] [place] [address] LAB CLIA [id number] [address] [place] [address] [place] MCHC (RBC) [Mass/Vol] 33.1 g/dL Normal 30.5-36.0 [facility] Comment on above: Order Comment: Speci men Type: BLOOD SPECIMEN Ordering Facility: [facility] Address: [address] [place] [address] Performed By: #### 5 7021-8 #### [facility] CLIA [id number] [address] [place] [address] LAB CLIA [id number] [address] [place] [address] [place] MCV (RBC) [Entitic vol] 90.8 fL Normal 80.0-100.0 C [facility] Comment on above: Order Comment: Speci men Type: BLOOD SPECIMEN Ordering Facility: [facility] Address: [address] [place] [address] Performed By: #### 5 7021-8 #### [facility] CLIA [id number] [address] [place] [address] LAB CLIA [id number] [address] [place] [address] [place] Monocytes (Bld) [#/Vol] 0.19 10*3/uL Normal <0.87 [facility] Comment on above: Order Comment: Speci men Type: BLOOD SPECIMEN Ordering Facility: [facility] Address: [address] [place] [address] Performed By: #### 5 7021-8 #### [facility] CLIA [id number] [address] [place] [address] LAB CLIA [id number] [address] [place] [address] [place] Monocytes/100 WBC (Bld) 1.0 % Normal C [facility] Comment on above: Order Comment: Speci men Type: BLOOD SPECIMEN Ordering Facility: [facility] Address: [address] [place] [address] Performed By: #### 5 7021-8 #### [facility] CLIA [id number] [address] [place] [address] LAB CLIA [id number] [address] [place] [address] [place] Neutrophils (Bld) [#/Vol] 4.23 10*3/uL Normal 1.45-7.50 [facility] Comment on above: Order Comment: Speci men Type: BLOOD SPECIMEN Ordering Facility: [facility] Address: [address] [place] [address] Performed By: #### 5 7021-8 #### [facility] CLIA [id number] [address] [place] [address] LAB CLIA [id number] [address] [place] [address] [place] Neutrophils/100 WBC (Bld) 22.0 % Normal [facility] Comment on above: Order Comment: Speci men Type: BLOOD SPECIMEN Ordering Facility: [facility] Address: [address] [place] [address] Performed By: #### 5 7021-8 #### [facility] CLIA [id number] [address] [place] [address] LAB CLIA [id number] [address] [place], [place] [address] [place] Nucleated RBC (Bld) [#/Vol] 10*3/uL Normal <0.01 [facility] Comment on above: Order Comment: Speci men Type: BLOOD SPECIMEN Ordering Facility: [facility] Address: [address] [place], [place] [address] Performed By: #### 5 7021-8 #### [facility] CLIA [id number] [address] [place] [address] LAB CLIA [id number] [address] [place], [place] [address] [place] Nucleated RBC/100 WBC (Bld) [Ratio] 0.0 /100 WBC Normal [facility] Comment on above: Order Comment: Speci men Type: BLOOD SPECIMEN Ordering Facility: [facility] Address: [address] [place] [address] Performed By: #### 5 7021-8 #### [facility] CLIA [id number] [address] [place] [address] LAB CLIA [id number] [address] [place] [address] [place] Ovalocytes LM Ql (Bld) Few Normal [facility] Comment on above: Order Comment: Speci men Type: BLOOD SPECIMEN Ordering Facility: [facility] Address: [address] [place] [address] Performed By: #### 5 7021-8 #### [facility] CLIA [id number] [address] [place] [address] LAB CLIA [id number] [address] [place] [address] [place] Platelet mean volume (Bld) [Entitic vol] 10.4 fL Normal 9.0-12.7 [facility] Comment on above: Order Comment: Speci men Type: BLOOD SPECIMEN Ordering Facility: [facility] Address: [address] [place] [address] Performed By: #### 5 7021-8 #### [facility] CLIA [id number] [address] [place] [address] LAB CLIA [id number] [address] [place] [address] [place] Platelets (Bld) [#/Vol] 244 10*3/uL Normal 150-400 [facility] Comment on above: Order Comment: Speci men Type: BLOOD SPECIMEN Ordering Facility: [facility] Address: [address] [place] [address] Performed By: #### 5 7021-8 #### [facility] CLIA [id number] [address] [place] [address] LAB CLIA [id number] [address] [place] [address] [place] Platelets Estimate (Bld) [#/Vol] Adequate Normal [facility] Comment on above: Order Comment: Speci men Type: BLOOD SPECIMEN Order[facility] Facility: [facility] Address: [address] [place] [address] Performed By: #### 5 7021-8 #### [facility] CLIA [id number] [address] [place] [address] LAB CLIA [id number] [address] [place] [address] [place] Polychromasia LM Ql (Bld) Slight Normal [facility] Comment on above: Order Comment: Speci men Type: BLOOD SPECIMEN Ordering Facility: [facility] Address: [address] [place] [address] Performed By: #### 5 7021-8 #### [facility] CLIA [id number] [address] [place] [address] LAB CLIA [id number] [address] [place] [address] [place] RBC (Bld) [#/Vol] 4.23 10*6/uL Normal 3.90-5.20 [facility] Comment on above: Order Comment: Speci men Type: BLOOD SPECIMEN Order[facility] Facility: [facility] Address: [address] [place] [address] Performed By: #### 5 7021-8 #### [facility] CLIA [id number] [address] [place] [address] LAB CLIA [id number] [address] [place] [address] [place] RED CELL MORPH Reviewed: see result s of individual morphologies Normal [facility] Comment on above: Order Comment: Speci men Type: BLOOD SPECIMEN Ordering Facility: [facility] Address: [address] [place] [address] Performed By: #### 5 7021-8 #### [facility] CLIA [id number] [address] [place], [place] [address] [facility] CLIA [id number] [address] [place] [address] [place] WBC (Bld) [#/Vol] 19.22 10*3/uL High 3.70-11.00 [facility] Comment on above: Order Comment: Speci men Type: BLOOD SPECIMEN Order[facility] Facility: [facility] Address: [address] [place] [address] Result Comment: No c lot detected.Results checked and verified. Performed By: #### 5 7021-8 #### [facility] CLIA [id number] [address] [place] [address] LAB CLIA [id number] [address] [place] [address] [place] CNOVSPon 05-26-2024 CNOVSP Visit (SP) Office ([facility]) KATHY WASHBURN ([id number]) 1940 F Date Time Provider Department 05/26/24 2:00 PM CHAD FREITAS [facility] During your visit today, we recorded the following information about you: Temperature Pulse Respiration Blood pressure 97 degrees 70/minute 16/minute 92/51 Weight Height 105.3 kg 1.727 m Chad Freitas MD 05/26/2024 2:41 PM Signed [id number] ATTENDING PHYSICIAN: Chad Freitas MD DATE OF [...] sweats - Did mammogram last week at [facility]. - Scheduled to see Branch Operations Specialist PAST MEDICAL HISTORY Diagnosis Date Depression Diabetes [...] Status 05/26 (more content not included)... Normal [facility] metabolic 2000 panelOrdered By: Malka Galvez on 05-26-2024 Albumin [Mass/Vol] 4.1 g/dL 3.9 - 4.9 g/dL [facility] ALP [Catalytic activity/Vol] 107 U/L 34 - 123 U/L [facility] ALT [Catalytic activity/Vol] 21 U/L 7 - 38 U/L [facility] Anion gap [Moles/Vol] 11 mmol/L 8 - 15 mmol/L [facility] AST [Catalytic activity/Vol] 23 U/L 13 - 35 U/L [facility] Bilirubin [Mass/Vol] 0.2 mg/dL 0.2 - 1 .3 mg/dL [facility] Calcium [Mass/Vol] 9.3 mg/dL 8.5 - 10. 2 mg/dL [facility] Chloride [Moles/Vol] 105 mmol/L 98 - 10 7 mmol/L [facility] CO2 [Moles/Vol] 26 mmol/L 22 - 30 mmol/L [facility] Creatinine [Mass/Vol] 1.20 mg/dL High 0.58 - 0.96 mg/dL [facility] GFR/1.73 sq M.predicted among non-blacks MDRD (S/P/Bld) [Vol rate/Area] 46 mL/min/{1.73_m2} Low - PINF [facility] Comment on above: Estimated Glomerular Filtration [...] mg/dL High 74 - 99 mg/dL [facility] Comment on above: The [place] Diabete s Association (ADA) provides guidance for [...] Standards of Medical Care in Diabetes 2016, [place] Diabetes Association. Diabetes Care. 2016.39(Suppl 1). Interpretation and review of laboratory results Abnormal [facility] Potassium [Moles/Vol] 5.3 mmol/L High 3.7 - 5.1 mmol/L [facility] Protein [Mass/Vol] 6.9 g/dL 6.3 - 8.0 g/dL [facility] Sodium [Moles/Vol] 142 mmol/L 136 - 144 mmol/L [facility] Urea nitrogen [Mass/Vol] 36 mg/dL High 7 - 21 mg/dL [facility] Comprehensive metabolic 2000 panelon 05-26-2024 Albumin [Mass/Vol] 4.1 g/dL Normal 3.9-4.9 [facility] Comment on above: Order Comment: Speci men Type: BLOOD SPECIMEN [facility] Facility[facility] Address: [address] [place] [address] Performed By: #### 2 532-0, 02415-6 #### [facility] CLIA [id number] [address] [place] [address] ALP [Catalytic activity/Vol] 107 U/L Normal 34-123 [facility] Comment on above: Order Comment: Speci men Type: BLOOD SPECIMEN Order[facility] Facility: [facility] Address: [facility] [place] [address] Performed By: #### 2 532-0, 74055-7 #### [facility] CLIA [id number] [address] [place] [address] ALT [Catalytic activity/Vol] 21 U/L Normal 7-38 [facility] Comment on above: Order Comment: Speci men Type: BLOOD SPECIMEN Order[facility] Facility: [facility] Address: [address] [place] [address] Performed By: #### 2 532-0, #### [facility] CLIA [id number] [address] [place] [address] Anion gap [Moles/Vol] 11 mmol/L Normal 8-15 [facility] Comment on above: Order Comment: Speci men Type: BLOOD SPECIMEN Order[facility] Facility: [facility] Address: [address] [place] [id number] Performed By: #### 2 532-0, #### [facility] CLIA [id number] [address] [place] [address] AST [Catalytic activity/Vol] 23 U/L Normal 13-35 [facility] Comment on above: Order Comment: Speci men Type: BLOOD SPECIMEN Order[facility] Facility: [facility] Address: [address] [place] [id number] Performed By: #### 2 532-0, #### [facility] CLIA [id number] [address] [place] [address] Bilirubin [Mass/Vol] 0.2 mg/dL Normal 0.2-1.3 [facility] Comment on above: Order Comment: Speci men Type: BLOOD SPECIMEN Order[facility] Facility: [facility] Address: [address] [place] [address] Performed By: #### 2 532-0, #### [facility] CLIA [id number] [address] [place] [address] Calcium [Mass/Vol] 9.3 mg/dL Normal 8.5-10.2 [facility] Comment on above: Order Comment: Speci men Type: BLOOD SPECIMEN Order[facility] Facility: [facility] Address: [address] [place] [address] Performed By: #### 2 532-0, 12121-1 #### [facility] CLIA [id number] [address] [place] [address] Chloride [Moles/Vol] 105 mmol/L Normal 98-107 [facility] Comment on above: Order Comment: Speci men Type: BLOOD SPECIMEN [facility] Facility: [facility] Address: [address] [place] [address] Performed By: #### 2 532-0, 94408-5 #### [facility] CLIA [id number] [address] [place] [address] CO2 [Moles/Vol] 26 mmol/L Normal 22-30 [facility] Comment on above: Order Comment: Speci men Type: BLOOD SPECIMEN [facility] Facility: [facility] Address: [address] [place] [address] Performed By: #### 2 532-0, 83883-4 #### [facility] CLIA [id number] [address] [place] [address] Creatinine [Mass/Vol] 1.20 mg/dL High 0.58-0.96 [facility] Comment on above: Order Comment: Speci men Type: BLOOD SPECIMEN Order[facility] Facility: [facility] Address: [address] [place] [address] Performed By: #### 2 532-0, 81988-7 #### [facility] CLIA [id number] [address] [place] [address] Creatinine and Glomerular filtration rate.predicted panel (S/P/Bld) 46 mL/min/1.73m??? Low >=60 [facility] Comment on above: Order Comment: Speci men Type: BLOOD SPECIMEN Order[facility] Facility: [facility] Address: [address] [place] [address] Result Comment: Aimee mated Glomerular Filtration Rate [...] actual GFR. Performed By: #### 2 532-0, 59805-4 #### [facility] CLIA [id number] [address] [place] [address] Glucose [Mass/Vol] 231 mg/dL High 74-99 [facility] Comment on above: Order Comment: Speci men Type: BLOOD SPECIMEN Ordering Facility: [facility] Address: [address] [place] [address] Result Comment: The [place] Diabetes Association (ADA) provides guidance for cutoff [...] Standards of Medical Care in Diabetes 2016, [place] Diabetes Association. Diabetes Care. 2016.39(Suppl 1). Performed By: #### 2 532-0, 55643-3 #### [facility] CLIA [id number] [address] [place] [address] Potassium [Moles/Vol] 5.3 mmol/L High 3.7-5.1 [facility] Comment on above: Order Comment: Speci men Type: BLOOD SPECIMEN Ordering Facility: [facility] Address: [address] [place] [address] Performed By: #### 2 532-0, 79237-6 #### [facility] CLIA [id number] [address] [place] [address]227 Protein [Mass/Vol] 6.9 g/dL Normal 6.3-8.0 [facility] Comment on above: Order Comment: Ha oropeza Type: BLOOD SPECIMEN Ordering Facility: [facility] Address: [address] [place] [address] Performed By: #### 2 532-0, 55633-5 #### [facility] CLIA [id number] [address] [place] [address] Sodium [Moles/Vol] 142 mmol/L Normal 136-144 [facility] Comment on above: Order Comment: Speci men Type: BLOOD SPECIMEN Ordering Facility: [facility] Address: [address] [place] [address] Performed By: #### 2 532-0, 33041-2 #### [facility] CLIA [id number] [address] [place] [address] Urea nitrogen [Mass/Vol] 36 mg/dL High 7-21 [facility] Comment on above: Order Comment: Speci men Type: BLOOD SPECIMEN Ordering Facility: [facility] Address: [address] [place] [address] Performed By: #### 2 532-0, 61670-4 #### [facility] CLIA [id number] [address] [place], [place] [address] Eosinophils/100 WBC Auto (Bl d)on 05-26-2024 Eosinophils/100 WBC (Bld) Automated eosinophil % [facility] Erythrocyte distribution wid th Auto (RBC) [Ratio]on 05-26-2024 Erythrocyte distribution width (RBC) [Ratio] Erythrocyte distribution width [Ratio] by Automated count 11.-.0 [facility] Hematocrit Auto (Bld) [Volum e fraction]on 05-26-2024 Hematocrit (Bld) [Volume fraction] Hematocrit [Volume Fraction] of Blood by Automated count 36.0-46.0 [facility] Hemoglobin [Mass/volume] in Bloodon 05-26-2024 Hemoglobin (Bld) [Mass/Vol] Hemoglobin [Mass/volume] in Blood 11.5-15.5 [facility] LACTATE DEHYDROGENASEon 05-14 LDH [Catalytic activity/Vol] 184 U/L 135 - 214 U/L [facility] LDH SerPl-cCncon 05-26-2024 LDH [Catalytic activity/Vol] 184 U/L Normal 135-214 [facility] Comment on above: Order Comment: Speci men Type: BLOOD SPECIMEN [facility] Facility: [facility] Address: [address], [place] [address] Performed By: #### 2 532-0, 59935-1 #### [facility] CLIA [id number] [address] [place] [address] LDH [Catalytic activity/Vol] on 05-26-2024 Interpretation and review of laboratory results Normal [facility] Laboratory - Chemistry and C hemistry - challengeon 05-26-2024 Albumin [Mass/Vol] 4.1 g/dL 3.9-4.9 [facility] ALP [Catalytic activity/Vol] 107 U/L 34-123 [facility] ALT [Catalytic activity/Vol] 21 U/L 7-38 [facility] AST [Catalytic activity/Vol] 23 U/L 13-35 [facility] Bilirubin [Mass/Vol] 0.2 mg/dL 0.2-1.3 [facility] Calcium [Mass/Vol] 9.3 mg/dL 8.5-10.2 [facility] Chloride [Moles/Vol] 105 mmol/L 98-107 [facility] CO2 [Moles/Vol] 26 mmol/L 22-30 [facility] Creatinine [Mass/Vol] 1.20 mg/dL High 0.58-0.96 [facility] Glucose [Mass/Vol] 231 mg/dL High 74-99 [facility] Comment on above: The [place] Diabete s Association (ADA) provides guidance for [...] Standards of Medical Care in Diabetes 2016, [place] Diabetes Association. Diabetes Care. 2016.39(Suppl 1). LDH [Catalytic activity/Vol] 184 U/L 135-214 [facility] Potassium [Moles/Vol] 5.3 mmol/L High 3.7-5.1 [facility] Sodium [Moles/Vol] 142 mmol/L 136-144 [facility] Urea nitrogen [Mass/Vol] 36 mg/dL High 7-21 [facility] Laboratory - Hematology and Cell countson 05-26-2024 Eosinophils (Bld) [#/Vol] 0.19 10*3/uL <0.46 [facility] Leukocytes [#/volume] correc andreina for nucleated erythrocytes in Blood by Automated counon 05-26-2024 WBC corrected for nucl RBC Auto (Bld) [#/Vol] Leukocytes [#/volume] corrected for nucleated erythrocytes in Blood by Automated coun High 3.70-11.00 [facility] Comment on above: No clot detected.Res ults checked and verified. Lymphocytes Auto (Bld) [#/Vo l]on 05-26-2024 Lymphocytes (Bld) [#/Vol] Lymphocytes [#/volume] in Blood by Automated count High 1.00-4.00 [facility] Lymphocytes/100 WBC Auto (Bl d)on 05-26-2024 Lymphocytes/100 WBC (Bld) Lymphocytes/100 leukocytes in Blood by Automated count [facility] MCH Auto (RBC) [Entitic mass ]on 05-26-2024 MCH (RBC) [Entitic mass] MCH [Entitic ma ss] by Automated count 26.0-34.0 [facility] MCHC Auto (RBC) [Mass/Vol]on 05-26-2024 MCHC (RBC) [Mass/Vol] MCHC [Mass/volume] by Automated count 30.5-36.0 [facility] MCV Auto (RBC) [Entitic vol] on 05-26-2024 MCV (RBC) [Entitic vol] MCV [Entitic vol ume] by Automated count 80.0-100.0 [facility] Monocytes Auto (Bld) [#/Vol] on 05-26-2024 Monocytes (Bld) [#/Vol] Automated blood monocyte count <0.87 [facility] Monocytes/100 WBC Auto (Bld) on 05-26-2024 Monocytes/100 WBC (Bld) Automated monocyte % [facility] Neutrophils Auto (Bld) [#/Vo l]on 05-26-2024 Neutrophils (Bld) [#/Vol] Neutrophils [#/volume] in Blood by Automated count 1.45-7.50 [facility] Neutrophils/100 WBC Auto (Bl d)on 05-26-2024 Neutrophils/100 WBC (Bld) Automated neutrophil % [facility] No Panel Informationon 05-26 Estimated GFR (CKD-EPI) 46 mL/min/1.73m??? Low >=60 [facility] Comment on above: Estimated Glomerular Filtration [...] resu lts of individual morphologies [facility] Nucleated RBC Auto (Bld) [#/ Vol]on 05-26-2024 Nucleated RBC (Bld) [#/Vol] Nucleated erythrocytes [#/volume] in Blood by Automated count <0.01 [facility] Nucleated erythrocytes [Pres ence] in Blood by Automated counton 05-26-2024 Nucleated RBC Auto Ql (Bld) Nucleated erythrocytes [Presence] in Blood by Automated count [facility] Ovalocyte detectionon 2023 Ovalocytes LM Ql (Bld) Ovalocyte detection [facility] Platelet adequacy [Presence] in Blood by Light microscopyon 05-26-2024 Platelets LM Ql (Bld) Platelet adequacy [Presence] in Blood by Light microscopy [facility] Platelet mean volume Auto (B ld) [Entitic vol]on 05-26-2024 Platelet mean volume (Bld) [Entitic vol] Platelet mean volume [Entitic volume] in Blood by Automated count 9.0-12.7 [facility] Platelets Auto (Bld) [#/Vol] on 05-26-2024 Platelets (Bld) [#/Vol] Platelets [#/vol ume] in Blood by Automated count 150-400 [facility] Polychromasia [Presence] in Blood by Light microscopyon 05-26-2024 Polychromasia LM Ql (Bld) Polychromasia [Presence] in Blood by Light microscopy [facility] Protein [Mass/volume] in Ser um or Plasmaon 05-26-2024 Protein [Mass/Vol] Protein [Mass/volume ] in Serum or Plasma 6.3-8.0 [facility] RBC Auto (Bld) [#/Vol]on RBC (Bld) [#/Vol] Erythrocytes [#/volume] in Blood by Automated count 3.90-5.20 [facility] Serum or plasma anion gap de terminationon 05-26-2024 Anion gap [Moles/Vol] Serum or plasma an ion gap determination 02-25 [facility] X-ray reportOrdered By: Teddy Arndt on 05-26-2024 Study report [facility] [place] [address] XRay Report Signed Patient: Kathy Washburn MR#: [id number] : 1940 Acct:[id number] Age/Sex: 83 / F ADM Date: 4 Loc: XD Room: Type: [facility] Attending Dr: Ayanna Vicente DO Copies to: Ayanna Vicente DO~ Ordering Provider: Ayanna Vicente DO Date of Service: 05/26/24 XR/XR hip LT min 2V(w/wo pelvis)*: M25.552 - Pain in left hip ([id number]) XR/XR knee LT 4V*: M25.552 - Pain [...] 4:55 PM Dictation Location: RADIO--01 Transcribed By: STAS 05/26/241654 Dictated By: Stanford Arndt DO 05/26/241652 Signed By: 05/26/241654 [facility] XR knee LT 4V*on 05-26-2024 XR knee LT 4V* [facility] [address] [place] [address] [place] [address] XRay Report Signed Patient: Kathy Washburn MR#: [id number] : 1940 Acct:[id number] Age/Sex: 83 / F ADM Date: 05/26/24 Loc: XD Room: Type: [facility] Attending Dr: Ayanna Vicente DO Copies to: Ayanna Vicente DO Ordering Provider: Ayanna Vicente DO Date of Service: 05/26/24 XR/XR hip LT min 2V(w/wo pelvis)*: M25.552 - Pain in left hip ([id number]) XR/XR knee LT 4V*: M25.552 - Pain [...] Stanford Arndt M.D.05/26/2024 4:55 PM Dictation Location: RADIO-PC-01 Transcribed By: STAS 05/26/241654 Dictated By: Stanford Arndt DO 05/26/241652 Signed By: 05/26/24 1655 Normal [facility] MM screening mammo BI w/CADo n 05-18-2024 MM screening mammo BI w/CAD [facility] [address] [place] [id number] Mammography Report Signed Patient: Kathy Washburn MR#: [id number] : 1940 Acct:[id number] Age/Sex: 83 / F ADM Date: 05/18/24 Loc: [place] Room: Type: [facility] Attending Dr: Ayanna Vicente DO Copies [...] Stanford Arndt M.D.05/18/2024 3:23 PM Dictation Location: [facility] Transcribed By: [facility] 05/18/24 1523 Dictated By: Stanford Arndt DO 05/18/24 1459 Signed By: 05/18/24 152 Normal [facility] CNOVon 05-17-2024 CNOV Office Visit (TREUAV ) KATHY WASHBURN ([id number]) 1940 F Date Time Provider Department 05/17/24 1:00 PM ZOHAIB GERMAN During your visit today, we recorded the following information about you: Pulse Blood pressure Weight Height 62/minute 117/75 103.4 kg 1.727 m Zohaib German MD 05/17/2024 1:34 PM Signed [facility] Date of Service: 05/17/2024 Patient: Kathy Washburn Medical Record: [id number] Primary Care Physician: Ayanna Vicente DO Last Rheumatology visit: None at [facility] Referring Provider: No referring provider defined [...] Use Topics (more content not included)... Normal [facility] A1C with Estimated Average G luon 05-06-2024 Glucose [Mass/Vol] 194 mg/dL Normal [facility] Comment on above: Result Comment: PERF ORMED BY: [place] [address] PATHOLOGIST EXHAUSTER MATHIEU RASCON M.D. Performed By: #### L IPID, A1C [facility] eA, T4F, URMACRERAT, TSH3, CUU, CMP, ADDONUAPLUS, T3T ####[facility] [id number] Alanine aminotransferase [En zymatic activity/volume] in Serum or PlasmaOrdered By: Ayanna Vicente on 05-06-2024 ALT [Catalytic activity/Vol] 25 U/L Normal [facility] Comment on above: Performed By: #### L IPID, A1C [facility] eA, T4F, URMACRERAT, TSH3, CUU, CMP, ADDONUAPLUS, T3T #### [facility] [address] ALT [Catalytic activity/Vol] Alanine aminotransferase [Enzymatic activity/volume] in Serum or Plasma [facility] Albumin [Mass/volume] in Ser um or Plasma by Bromocresol green (BCG) dye binding methoOrdered By: Ayanna Vicente on 05-06-2024 Albumin BCG dye [Mass/Vol] 4.1 g/dL 3.5-5.7 [facility] Albumin BCG dye [Mass/Vol] Albumin [Mass/volume] in Serum or Plasma by Bromocresol green (BCG) dye binding metho 3.5-5.7 [facility] Alkaline phosphatase [Enzyma tic activity/volume] in Serum or PlasmaOrdered By: Ayanna Vicente on 05-06-2024 ALP [Catalytic activity/Vol] 89 U/L Normal 34-104 [facility] Comment on above: Performed By: #### L IPID, A1C WTH eA, T4F, URMACRERAT, TSH3, CUU, CMP, ADDONUAPLUS, T3T #### [facility] [address] ALP [Catalytic activity/Vol] Alkaline phosphatase [Enzymatic activity/volume] in Serum or Plasma 34 [facility] Appearance of UrineOrdered B y: Ayanna Vicente on 05-06-2024 Appearance (U) Urine appearance Clear [facility] Aspartate aminotransferase [ Enzymatic activity/volume] in Serum or PlasmaOrdered By: Ayanna Vicente on 05-06-2024 AST [Catalytic activity/Vol] 23 U/L Normal [facility] Comment on above: Performed By: #### L IPID, A1C WTH eA, T4F, URMACRERAT, TSH3, CUU, CMP, ADDONUAPLUS, T3T #### [facility] [address] AST [Catalytic activity/Vol] Aspartate aminotransferase [Enzymatic activity/volume] in Serum or Plasma [facility] Bacteria [Presence] in Urine sediment by Light microscopyOrdered By: Ayanna Vicente on 05-06-2024 Bacteria LM Ql (Urine sed) 4+ [HPF] High None Seen [facility] Bacteria LM Ql (Urine sed) Bacteria [Presence] in Urine sediment by Light microscopy High None Seen [facility] Bilirubin Test strip Ql (U)O rdered By: Ayanna Vicente on 05-06-2024 Bilirubin Ql (U) Negative Negative [facility] Bilirubin Ql (U) Bilirubin.total [Presence] in Urine by Test strip Negative [facility] Bilirubin.total [Mass/volume ] in Serum or PlasmaOrdered By: Ayanna Vicente on 05-06-2024 Bilirubin [Mass/Vol] 0.4 mg/dL Normal 0.3-1.0 [facility] Comment on above: Performed By: #### L IPID, A1C WTH eA, T4F, URMACRERAT, TSH3, CUU, CMP, ADDONUAPLUS, T3T #### [facility] [address] Bilirubin [Mass/Vol] Bilirubin.total [Mass/volume] in Serum or Plasma 0.3-1.0 [facility] Blood estimated average gluc ose determination by estimation from glycated hemoglobinOrdered By: Ayanna Vicente on 05-06-2024 Average glucose Estimated from glycated hemoglobin (Bld) [Mass/Vol] Glucose mean value [Mass/volume] in Blood Estimated from glycated hemoglobin [facility] Calcium [Mass/volume] in Ser um or PlasmaOrdered By: Ayanna Vicente on 05-06-2024 Calcium [Mass/Vol] 9.6 mg/dL Normal 8.6-10.3 [facility] Comment on above: Performed By: #### L IPID, A1C WTH eA, T4F, URMACRERAT, TSH3, CUU, CMP, ADDONUAPLUS, T3T #### [facility] [address] Calcium [Mass/Vol] Calcium [Mass/volume ] in Serum or Plasma 8.6-10.3 [facility] Carbon dioxide, total [Moles /volume] in Serum or PlasmaOrdered By: Ayanna Vicente on 05-06-2024 CO2 [Moles/Vol] 30.2 mmol/L Normal 21.0-31.0 [facility] Comment on above: Performed By: #### L IPID, A1C WTH eA, T4F, URMACRERAT, TSH3, CUU, CMP, ADDONUAPLUS, T3T #### [facility] [address] [place] [address] [place] CO2 [Moles/Vol] Carbon dioxide, tota l [Moles/volume] in Serum or Plasma 21.0-31.0 [facility] Chloride [Moles/volume] in S ebony or PlasmaOrdered By: Ayanna Vicente on 05-06-2024 Chloride [Moles/Vol] 105 mmol/L Normal 98-107 [facility] Comment on above: Performed By: #### L IPID, A1C WTH eA, T4F, URMACRERAT, TSH3, CUU, CMP, ADDONUAPLUS, T3T #### [facility] [address] [place] [address] [place] Chloride [Moles/Vol] Chloride [Moles/volume] in Serum or Plasma 98-107 [facility] Cholesterol [Mass/volume] in Serum or PlasmaOrdered By: Ayanna Vicente on 05-06-2024 Cholesterol [Mass/Vol] 134 mg/dL Low 140-200 [facility] Comment on above: Chol less than 200 m g/dl low riskChol 201-239 mg/dl borderline riskChol 240 mg/dl and greater high risk Result Comment: Chol less than 200 mg/dl low risk Chol 201-239 mg/dl borderline risk Chol 240 mg/dl and greater high risk Performed By: #### L IPID, A1C WTH eA, T4F, URMACRERAT, TSH3, CUU, CMP, ADDONUAPLUS, T3T #### [facility] [address] [place] [address] [facility] Cholesterol [Mass/Vol] Cholesterol [Mass/volume] in Serum or Plasma Low 140-200 [facility] Comment on above: Chol less than 200 m g/dl low riskChol 201-239 mg/dl borderline riskChol 240 mg/dl and greater high risk Cholesterol in HDL [Mass/vol ume] in Serum or PlasmaOrdered By: Ayanna Vicente on 05-06-2024 Cholesterol in HDL [Mass/Vol] Serum or plasma high density lipoprotein (HDL) cholesterol measurement 23- [facility] Comment on above: HDL CHOL ATP-III CLA SSIFICATION Cardiovascular RiskHDL > or equal to 60 mg/dL LOWHDL < 40 mg/dL HIGH Cholesterol in LDL Calc [Mas s/Vol]Ordered By: Ayanna Vicente on 05-06-2024 Cholesterol in LDL [Mass/Vol] 46 mg/dL 0-100 [facility] Comment on above: LDL ATP III CLASSIFI CATIONLDL less than 100 mg/dL OptimalLDL 100-129 mg/dL Near or above optimalLDL 130-159 mg/dL Borderline highLDL 160-189 mg/dL HighLDL greater than 189 mg/dL Very high Cholesterol in LDL [Mass/Vol] Cholesterol in LDL [Mass/volume] in Serum or Plasma by calculation 0-100 [facility] Comment on above: LDL ATP III CLASSIFI CATIONLDL less than 100 mg/dL OptimalLDL 100-129 mg/dL Near or above optimalLDL 130-159 mg/dL Borderline highLDL 160-189 mg/dL HighLDL greater than 189 mg/dL Very high Cholesterol in VLDL Calc [Ma ss/Vol]Ordered By: Ayanna Vicente on 05-06-2024 Cholesterol in VLDL [Mass/Vol] 47 mg/dL [facility] Cholesterol in VLDL [Mass/Vol] Cholesterol in VLDL [Mass/volume] in Serum or Plasma by calculation [facility] Color Auto (U)Ordered By: Vasile Vicente on 05-06-2024 Color (U) Color of Urine by Auto Yellow [facility] Color of Urine by AutoOrdere d By: Ayanna Vicente on 05-06-2024 Color (U) Yellow Normal Yellow [facility] Comment on above: Order Comment: Name Collection Type:: Clean-Voided Midstream Performed By: #### L IPID, A1C WTH eA, T4F, URMACRERAT, TSH3, CUU, CMP, ADDONUAPLUS, T3T #### [facility] [address] Comprehensive Metabolic Pane curt 05-06-2024 Albumin [Mass/Vol] 4.1 g/dL Normal 3.5-5.7 [facility] Comment on above: Performed By: #### L IPID, A1C WTH eA, T4F, URMACRERAT, TSH3, CUU, CMP, ADDONUAPLUS, T3T #### [facility] [address] GFR/1.73 sq M.predicted MDRD (S/P/Bld) [Vol rate/Area] 51.605 mL/min/{1.73_m2} Normal [facility] Comment on above: Performed By: #### L IPID, A1C WTH eA, T4F, URMACRERAT, TSH3, CUU, CMP, ADDONUAPLUS, T3T #### [facility] [address] Creatinine [Mass/volume] in Serum or PlasmaOrdered By: Ayanna Vicente on 05-06-2024 Creatinine [Mass/Vol] 1.08 mg/dL Normal 0.60-1.20 [facility] Comment on above: Performed By: #### L IPID, A1C WTH eA, T4F, URMACRERAT, TSH3, CUU, CMP, ADDONUAPLUS, T3T #### [facility] [address] Creatinine [Mass/Vol] Creatinine [Mass/volume] in Serum or Plasma 0.60-1.20 [facility] Creatinine [Mass/volume] in UrineOrdered By: Ayanna Vicente on 05-06-2024 Creatinine (U) [Mass/Vol] 93.00 mg/dL [facility] Comment on above: No reference range e stablished Creatinine (U) [Mass/Vol] Creatinine [Mass/volume] in Urine [facility] Comment on above: No reference range e stablished Dipstick and Microscopicon 1 Bacteria,Urine 4+ High None Seen [facility] Comment on above: Order Comment: Name Collection Type:: Clean-Voided Midstream Performed By: #### L IPID, A1C WTH eA, T4F, URMACRERAT, TSH3, CUU, CMP, ADDONUAPLUS, T3T #### [facility] [address] [place] [address] [place] Bilirubin,Urine Negative Normal Negative [facility] Comment on above: Order Comment: Name Collection Type:: Clean-Voided Midstream Performed By: #### L IPID, A1C WTH eA, T4F, URMACRERAT, TSH3, CUU, CMP, ADDONUAPLUS, T3T #### [facility] [address] [place] [id number] [place] Glucose Ql (U) Normal Normal Normal [facility] Comment on above: Order Comment: Name Collection Type:: Clean-Voided Midstream Performed By: #### L IPID, A1C WTH eA, T4F, URMACRERAT, TSH3, CUU, CMP, ADDONUAPLUS, T3T #### [facility] [address] [place] [id number] [place] Hyaline Casts,Urine 5-9 High 0-1 [facility] Comment on above: Order Comment: Name Collection Type:: Clean-Voided Midstream Result Comment: PERF ORMED BY: [place] [address] PATHOLOGIST EXHAUSTER MATHIEU RASCON M.D. Performed By: #### L IPID, A1C WTH eA, T4F, URMACRERAT, TSH3, CUU, CMP, ADDONUAPLUS, T3T #### [place] [address] [place] Nitrite,Urine Negative Normal Negative [facility] Comment on above: Order Comment: Name Collection Type:: Clean-Voided Midstream Performed By: #### L IPID, A1C WTH eA, T4F, URMACRERAT, TSH3, CUU, CMP, ADDONUAPLUS, T3T #### [place] [address] [place] Occult Blood,Urine Negative Normal Negative [facility] Comment on above: Order Comment: Name Collection Type:: Clean-Voided Midstream Performed By: #### L IPID, A1C WTH eA, T4F, URMACRERAT, TSH3, CUU, CMP, ADDONUAPLUS, T3T #### [place] [address] [place] Protein,Urine Trace High Negative [facility] Comment on above: Order Comment: Name Collection Type:: Clean-Voided Midstream Performed By: #### L IPID, A1C WTH eA, T4F, URMACRERAT, TSH3, CUU, CMP, ADDONUAPLUS, T3T #### [place] [address] [place] RBC LM.HPF (Urine sed) [#/Area] 0 /[HPF] Normal 0-4 [facility] Comment on above: Order Comment: Name Collection Type:: Clean-Voided Midstream Performed By: #### L IPID, A1C WTH eA, T4F, URMACRERAT, TSH3, CUU, CMP, ADDONUAPLUS, T3T #### [place] [address] [place] Specificy [place],Urine 1.020 Normal 1.001-1.030 [facility] Comment on above: Order Comment: Name Collection Type:: Clean-Voided Midstream Performed By: #### L IPID, A1C WTH eA, T4F, URMACRERAT, TSH3, CUU, CMP, ADDONUAPLUS, T3T #### [facility] [address] Squamous Epithelial Cell,Urine 3-4 High 0-2 [facility] Comment on above: Order Comment: Name Collection Type:: Clean-Voided Midstream Performed By: #### L IPID, A1C WTH eA, T4F, URMACRERAT, TSH3, CUU, CMP, ADDONUAPLUS, T3T #### [address] Urobilinogen,Urine Normal Normal Normal [facility] Comment on above: Order Comment: Name Collection Type:: Clean-Voided Midstream Performed By: #### L IPID, A1C WTH eA, T4F, URMACRERAT, TSH3, CUU, CMP, ADDONUAPLUS, T3T #### [address] WBC,Urine 10-19 High 0-4 [facility] Comment on above: Order Comment: Name Collection Type:: Clean-Voided Midstream Performed By: #### L IPID, A1C WTH eA, T4F, URMACRERAT, TSH3, CUU, CMP, ADDONUAPLUS, T3T #### [address] Epithelial cells.squamous [# /area] in Urine sediment by Microscopy high power fieldOrdered By: Ayanna Vicente on 05-06-2024 Epithelial cells.squamous LM.HPF (Urine sed) [#/Area] 3-4 [HPF] High 0-2 [facility] Epithelial cells.squamous LM.HPF (Urine sed) [#/Area] Epithelial cells.squamous [#/area] in Urine sediment by Microscopy high power field High 0-2 [facility] Erythrocytes [#/area] in Uri ne sediment by Microscopy high power fieldOrdered By: Ayanna Vicente on 05-06-2024 RBC LM.HPF (Urine sed) [#/Area] 0-1 [HPF] 0-4 [facility] RBC LM.HPF (Urine sed) [#/Area] Erythrocytes [#/area] in Urine sediment by Microscopy high power field 0-4 [facility] Globulin Calc (S) [Mass/Vol] Ordered By: Ayanna Vicente on 05-06-2024 Globulin (S) [Mass/Vol] Serum globulin measurement by calculation (mass/volume) [facility] Glucose [Mass/volume] in Ser um or PlasmaOrdered By: Ayanna Vicente on 05-06-2024 Glucose [Mass/Vol] 129 mg/dL High 70-100 [facility] Comment on above: ADA recommended refe rence rangeRandom Glucose Reference Range is dependent on time and content of last meal. Glucose of more than 200 mg/dL in a nonstressed, ambulatory subject supports the diagnosis of Diabetes Mellitus. Result Comment: [place] Glucose Reference Range is dependent on time and content of last meal. Glucose of more than 200 mg/dL in a nonstressed, ambulatory subject supports the diagnosis of Diabetes Mellitus. ADA recommended reference range Performed By: #### L IPID, A1C WTH eA, T4F, URMACRERAT, TSH3, CUU, CMP, ADDONUAPLUS, T3T #### [facility] [address] [place] [address] Glucose [Mass/Vol] Glucose [Mass/volume ] in Serum or Plasma High 70-100 [facility] Comment on above: ADA recommended refe rence rangeRandom Glucose Reference Range is dependent on time and content of last meal. Glucose of more than 200 mg/dL in a nonstressed, ambulatory subject supports the diagnosis of Diabetes Mellitus. Glucose [Mass/volume] in Uri ne by Test stripOrdered By: Ayanna Vicente on 05-06-2024 Glucose Test strip (U) [Mass/Vol] Normal mg/dL Normal [facility] Glucose Test strip (U) [Mass/Vol] Glucose [Mass/volume] in Urine by Test strip Normal [facility] Glucose mean value [Mass/vol ume] in Blood Estimated from glycated hemoglobinOrdered By: Ayanna Vicente on 05-06-2024 Average glucose Estimated from glycated hemoglobin (Bld) [Mass/Vol] 194 mg/dL [facility] Hemoglobin A1c percentageOrd ered By: Ayanna Vicente on 05-06-2024 HbA1c (Bld) [Mass fraction] 8.4 % High 4.3-5.6 [facility] Comment on above: Increased risk for d iabetes: 5.7 - 6.4diabetes: >6.4glycemic control for adults with diabetes: <7.0 Result Comment: Incr eased risk for diabetes: 5.7 - 6.4 diabetes: >6.4 glycemic control for adults with diabetes: <7.0 Performed By: #### L IPID, A1C WTH eA, T4F, URMACRERAT, TSH3, CUU, CMP, ADDONUAPLUS, T3T ####[facility] [id number] [place] [id number] [facility] Hemoglobin A1c/Hemoglobin.to dayna in BloodOrdered By: Ayanna Vicente on 05-06-2024 HbA1c (Bld) [Mass fraction] Hemoglobin A1c percentage High 4.3-5.6 [facility] Comment on above: Increased risk for d iabetes: 5.7 - 6.4diabetes: >6.4glycemic control for adults with diabetes: <7.0 Hemoglobin Test strip Ql (U) Ordered By: Ayanna Vicente on 05-06-2024 Hemoglobin Ql (U) Negative Negative [facility] Hemoglobin Ql (U) Hemoglobin [Presence ] in Urine by Test strip Negative [facility] Hyaline casts LM.LPF (Urine sed) [#/Area]Ordered By: Ayanna Vicente on 05-06-2024 Hyaline casts (Urine sed) [#/Area] 5-9 [LPF] High 0-1 [facility] Hyaline casts (Urine sed) [#/Area] Hyaline casts [#/area] in Urine sediment by Microscopy low power field High 0-1 [facility] Ketones Test strip Ql (U)Ord ered By: Ayanna Vicente on 05-06-2024 Ketones Ql (U) Ketones [Presence] i n Urine by Test strip Negative [facility] Ketones [Presence] in Urine by Test stripOrdered By: Ayanna Vicente on 05-06-2024 Ketones Ql (U) Negative Normal Negative [facility] Comment on above: Order Comment: Name Collection Type:: Clean-Voided Midstream Performed By: #### L IPID, A1C WTH eA, T4F, URMACRERAT, TSH3, CUU, CMP, ADDONUAPLUS, T3T #### [facility] [address] Laboratory - Microbiology an d Antimicrobial susceptibilityOrdered By: Ayanna Vicente on 05-06-2024 Bacteria identified Cx Nom (U) Klebsiella variicola Abnormal [facility] Bacteria identified Cx Nom (U) Klebsiella variicola Abnormal [facility] Leukocyte esterase [Presence ] in Urine by Test stripOrdered By: Ayanna Vicente on 05-06-2024 Leukocyte esterase Test strip Ql (U) 2+ High Negative [facility] Comment on above: Order Comment: Name Collection Type:: Clean-Voided Midstream Performed By: #### L IPID, A1C WTH eA, T4F, URMACRERAT, TSH3, CUU, CMP, ADDONUAPLUS, T3T #### [facility] [address] [place] [id number] [place] Leukocyte esterase Test strip Ql (U) Leukocyte esterase [Presence] in Urine by Test strip High Negative [facility] Leukocytes [#/area] in Urine sediment by Microscopy high power fieldOrdered By: Ayanna Vicente on 05-06-2024 WBC LM.HPF (Urine sed) [#/Area] 10-19 [HPF] High 0-4 [facility] WBC LM.HPF (Urine sed) [#/Area] Leukocytes [#/area] in Urine sediment by Microscopy high power field High 0-4 [facility] Lipid Panelon 05-06-2024 LDL Cholesterol,Calculated 46 mg/dL Normal 0-100 [facility] Comment on above: Result Comment: LDL ATP III CLASSIFICATION LDL less than 100 mg/dL Optimal LDL 100-129 mg/dL Near or above optimal LDL 130-159 mg/dL Borderline high LDL 160-189 mg/dL High LDL greater than 189 mg/dL Very high Performed By: #### L IPID, A1C WTH eA, T4F, URMACRERAT, TSH3, CUU, CMP, ADDONUAPLUS, T3T #### [address] Triglyceride w/Reflex 235 mg/dL High 0-149 [facility] Comment on above: Result Comment: TRIG ATP III CLASSIFICATION TRIG less than 150 mg/dL Normal TRIG 150-199 mg/dL Borderline high TRIG 200-500 mg/dL High TRIG greater than 500 mg/dL Very high Standard traceable to the Center for Disease Conrtrol and Prevention (CDC) test method. Performed By: #### L IPID, A1C WTH eA, T4F, URMACRERAT, TSH3, CUU, CMP, ADDONUAPLUS, T3T #### [address] VLDL CHOLESTEROL 47 mg/dL Normal [facility] Comment on above: Performed By: #### L IPID, A1C WTH eA, T4F, URMACRERAT, TSH3, CUU, CMP, ADDONUAPLUS, T3T #### [address] MicroAlb Creat Ratio,Uon Creatinine, Urine (Random) 93.00 mg/dL Normal [facility] Comment on above: Result Comment: No r eference range established Performed By: #### L IPID, A1C WTH eA, T4F, URMACRERAT, TSH3, CUU, CMP, ADDONUAPLUS, T3T #### [address] Microalbumin/Creatinine Ratio 17.2 mg/g Normal 0.0-30.0 [facility] Comment on above: Result Comment: 30-3 00 mg/g indicates an increased risk for diabetic nephropathy. Greater than 300 mg/g is consistent with clinical nephropathy. (Am. J. Kidney Disease 1995, 25:107) PERFORMED BY: [place] [address] PATHOLOGIST EXHAUSTER MATHIEU RASCON M.D. Performed By: #### L IPID, A1C WTH eA, T4F, URMACRERAT, TSH3, CUU, CMP, ADDONUAPLUS, T3T #### [facility] [address] [place] [phone] [place] Microalbumin [Mass/volume] i n UrineOrdered By: Ayanna Vicente on 05-06-2024 Albumin DL <= 20 mg/L (U) [Mass/Vol] 1.6 mg/dL Normal 0.0-1.8 [facility] Comment on above: Performed By: #### L IPID, A1C WT eA, T4F, URMACRERAT, TSH3, CUU, CMP, ADDONUAPLUS, T3T #### [facility] [address] [place] [id number] [facility] Albumin DL <= 20 mg/L (U) [Mass/Vol] Microalbumin [Mass/volume] in Urine 0.0-1.8 [facility] Nitrite Test strip Ql (U)Ord ered By: Ayanna Vicente on 05-06-2024 Nitrite Ql (U) Negative Negative [facility] Nitrite Ql (U) Nitrite [Presence] i n Urine by Test strip Negative [facility] No Panel InformationOrdered By: Ayanna Vicente on 05-06-2024 Estimated GFR (CKD-EPI) 51.605 mL/Min [facility] Creatinine Clearance (Chem N/A [facility] Potassium [Moles/volume] in Serum or PlasmaOrdered By: Ayanna Vicente on 05-06-2024 Potassium [Moles/Vol] 5.1 mmol/L Normal 3.5-5.1 [facility] Comment on above: Performed By: #### L IPID, A1C [facility] eA, T4F, URMACRERAT, TSH3, CUU, CMP, ADDONUAPLUS, T3T #### [facility] [address] [place] [id number] [facility] Potassium [Moles/Vol] Potassium [Moles/volume] in Serum or Plasma 3.5-5.1 [facility] Protein Test strip (U) [Mass /Vol]Ordered By: Ayanna Vicente on 05-06-2024 Protein (U) [Mass/Vol] Trace mg/dL High Negative [facility] Protein (U) [Mass/Vol] Protein [Mass/vol ume] in Urine by Test strip High Negative [facility] Protein [Mass/volume] in Ser um or PlasmaOrdered By: Ayanna Vicente on 05-06-2024 Protein [Mass/Vol] 6.8 g/dL Normal 6.4-8.9 [facility] Comment on above: Performed By: #### L IPID, A1C WTH eA, T4F, URMACRERAT, TSH3, CUU, CMP, ADDONUAPLUS, T3T #### [facility] [address] [place] [address] Protein [Mass/Vol] Protein [Mass/volume ] in Serum or Plasma 6.4-8.9 [facility] Serum globulin measurement b y calculation (mass/volume)Ordered By: Ayanna Vicente on 05-06-2024 Globulin (S) [Mass/Vol] 2.7 g/dL Normal [facility] Comment on above: Performed By: #### L IPID, A1C WTH eA, T4F, URMACRERAT, TSH3, CUU, CMP, ADDONUAPLUS, T3T #### [facility] [address] [place] [address] Serum or plasma albumin/glob ulin mass ratioOrdered By: Ayanna Vicente on 05-06-2024 Albumin/Globulin [Mass ratio] 1.5 {ratio} Normal [facility] Comment on above: Performed By: #### L IPID, A1C WTH eA, T4F, URMACRERAT, TSH3, CUU, CMP, ADDONUAPLUS, T3T #### [facility] [address] [place], [place] [id number] [facility] Albumin/Globulin [Mass ratio] Serum or plasma albumin/globulin mass ratio [facility] Serum or plasma anion gap de terminationOrdered By: Ayanna Vicente on 05-06-2024 Anion gap [Moles/Vol] 10.9 mmol/L Normal 6.0-15.0 [facility] Comment on above: Performed By: #### L IPID, A1C WTH eA, T4F, URMACRERAT, TSH3, CUU, CMP, ADDONUAPLUS, T3T #### [facility] [address] Anion gap [Moles/Vol] Serum or plasma an ion gap determination 6.0-15.0 [facility] Serum or plasma high density lipoprotein (HDL) cholesterol measurementOrdered By: Ayanna Vicente on 05-06-2024 Cholesterol in HDL [Mass/Vol] 41 mg/dL Normal 23-92 [facility] Comment on above: HDL CHOL ATP-III CLA SSIFICATION Cardiovascular RiskHDL > or equal to 60 mg/dL LOWHDL < 40 mg/dL HIGH Result Comment: HDL CHOL ATP-III CLASSIFICATION Cardiovascular Risk HDL > or equal to 60 mg/dL LOW HDL < 40 mg/dL HIGH Performed By: #### L IPID, A1C WTH eA, T4F, URMACRERAT, TSH3, CUU, CMP, ADDONUAPLUS, T3T #### [address] Serum or plasma total choles terol/high density lipoprotein (HDL) cholesterol mass ratOrdered By: Ayanna Vicente on 05-06-2024 Cholesterol.total/Choles terol in HDL [Mass ratio] 3.3 {ratio} Normal <5.0 [facility] Comment on above: Performed By: #### L IPID, A1C WTH eA, T4F, URMACRERAT, TSH3, CUU, CMP, ADDONUAPLUS, T3T #### [facility] [address] [place] [address] Cholesterol.total/Choles terol in HDL [Mass ratio] Serum or plasma total cholesterol/high density lipoprotein (HDL) cholesterol mass rat <5.0 [facility] Sodium [Moles/volume] in Ser um or PlasmaOrdered By: Ayanna Vicente on 05-06-2024 Sodium [Moles/Vol] 141 mmol/L Normal 136-145 [facility] Comment on above: Performed By: #### L IPID, A1C WTH eA, T4F, URMACRERAT, TSH3, CUU, CMP, ADDONUAPLUS, T3T #### [address] Sodium [Moles/Vol] Sodium [Moles/volume ] in Serum or Plasma 136-145 [facility] Specific gravity Test strip (U) [Rel density]Ordered By: Ayanna Vicente on 05-06-2024 Specific gravity (U) [Rel density] 1.020 1.001-1.030 [facility] Specific gravity (U) [Rel density] Specific gravity of Urine by Test strip 1.001-1.030 [facility] Thyrotropin [Units/volume] i n Serum or PlasmaOrdered By: Ayanna Vicente on 05-06-2024 TSH Qn 1.93 m[IU]/L Normal 0.45-5.33 [facility] Comment on above: Result Comment: PERF ORMED BY: [facility] [address] [place] [id number] PATHOLOGIST EXHAUSTER MATHIEU RASCON M.D. Performed By: #### L IPID, A1C [facility] eA, T4F, URMACRERAT, TSH3, CUU, CMP, ADDONUAPLUS, T3T ####[place] [id number] [place] [id number] [facility] TSH Qn Thyrotropin [Units/volume] in Serum or Plasma 0.45-5.33 [facility] Thyroxine (T4) free [Mass/vo lume] in Serum or PlasmaOrdered By: Ayanna Vicente on 05-06-2024 Free T4 [Mass/Vol] 0.94 ng/dL Normal 0.61-1.12 [facility] Comment on above: Performed By: #### L IPID, A1C [facility] eA, T4F, URMACRERAT, TSH3, CUU, CMP, ADDONUAPLUS, T3T ####[place] [id number] [facility] Free T4 [Mass/Vol] Thyroxine (T4) free [Mass/volume] in Serum or Plasma 0.61-1.12 [facility] Triglyceride [Mass/volume] i n Serum or PlasmaOrdered By: Ayanna Vicente on 05-06-2024 Triglyceride [Mass/Vol] 235 mg/dL High 0-149 [facility] Comment on above: TRIG ATP III CLASSIF ICATIONTRIG less than 150 mg/dL NormalTRIG 150-199 mg/dL Borderline highTRIG 200-500 mg/dL High TRIG greater than 500 mg/dL Very highStandard traceable to the Center for Disease Conrtrol and Prevention (CDC) test method. Triglyceride [Mass/Vol] Triglyceride [Mass/volume] in Serum or Plasma High 0-149 [facility] Comment on above: TRIG ATP III CLASSIF ICATIONTRIG less than 150 mg/dL NormalTRIG 150-199 mg/dL Borderline highTRIG 200-500 mg/dL High TRIG greater than 500 mg/dL Very highStandard traceable to the Center for Disease Conrtrol and Prevention (CDC) test method. Triiodothyronine (T3) Totalo n 05-06-2024 Triiodothyronine (T3) Total 0.89 ng/mL Normal 0.87-1.78 [facility] Comment on above: Performed By: #### L IPID, A1C WTH eA, T4F, URMACRERAT, TSH3, CUU, CMP, ADDONUAPLUS, T3T ####[facility] [id number] Triiodothyronine (T3) [Mass/ volume] in Serum or PlasmaOrdered By: Ayanna Vicente on 05-06-2024 T3 [Mass/Vol] 0.89 ng/mL 0.87-1.78 [facility] T3 [Mass/Vol] Triiodothyronine (T3 ) [Mass/volume] in Serum or Plasma 0.87-1.78 [facility] Urea nitrogen [Mass/volume] in Serum or PlasmaOrdered By: Ayanna Vicente on 05-06-2024 Urea nitrogen [Mass/Vol] 29 mg/dL High 02-04 [facility] Comment on above: Performed By: #### L IPID, A1C WTH eA, T4F, URMACRERAT, TSH3, CUU, CMP, ADDONUAPLUS, T3T #### [facility] [address] Urea nitrogen [Mass/Vol] Urea nitrogen [Mass/volume] in Serum or Plasma High 02-04 [facility] Urine Cultureon 05-06-2024 Bacteria identified Cx Nom (U) ORGANISM: Klebsiella variicola (O:KLEVAR) [place] Count >100,000 Aerobic CORNELIA Charge ([id number]) ---- [...] RESISTANT TO ALL B-LACTAM DRUGS. PERFORMED BY: [facility] [address] [place] [address] PATHOLOGIST EXHAUSTER MATHIEU RASCON M.D. Normal [facility] Comment on above: Performed By: #### L IPID, A1C WT eA, T4F, URMACRERAT, TSH3, CUU, CMP, ADDONUAPLUS, T3T ####[facility] [id number] [place] [id number] [facility] Urine appearanceOrdered By: Ayanna Vicente on 05-06-2024 Appearance (U) Clear Normal Clear [facility] Comment on above: Order Comment: Name Collection Type:: Clean-Voided Midstream Performed By: #### L IPID, A1C WTH eA, T4F, URMACRERAT, TSH3, CUU, CMP, ADDONUAPLUS, T3T #### [facility] [address] [place] [phone] [facility] Urine cultureOrdered By: Aftab Vicente on 05-06-2024 Bacteria identified Cx Nom (U) Abnormal [facility] Urine microalbumin/creatinin e mass ratioOrdered By: Ayanna Vicente on 05-06-2024 Albumin/Creatinine DL <= 20 mg/L (U) [Mass ratio] 17.2 mg/g 0.0-30.0 [facility] Comment on above: 30-300 mg/g indicate s an increased risk for diabetic nephropathy. Greater than 300 mg/g is consistent with clinical nephropathy. (Am. J. Kidney Disease 1995, 25:107) Albumin/Creatinine DL <= 20 mg/L (U) [Mass ratio] Urine microalbumin/creatini ne mass ratio 0.0-30.0 [facility] Comment on above: 30-300 mg/g indicate s an increased risk for diabetic nephropathy. Greater than 300 mg/g is consistent with clinical nephropathy. (Am. J. Kidney Disease 1995, 25:107) Urobilinogen Test strip (U) [Mass/Vol]Ordered By: Ayanna Vicente on 05-06-2024 Urobilinogen (U) [Mass/Vol] Normal mg/dL Normal [facility] Urobilinogen (U) [Mass/Vol] Urobilinogen [Mass/volume] in Urine by Test strip Normal [facility] pH Test strip (U)Ordered By: Ayanna Vicente on 05-06-2024 pH (U) pH of Urine by Test strip 5.0-9.0 [facility] pH of Urine by Test stripOrd ered By: Ayanna Vicente on 05-06-2024 pH (U) 5.5 [pH] Normal 5.0-9.0 [facility] Comment on above: Order Comment: Name Collection Type:: Clean-Voided Midstream Performed By: #### L IPID, A1C WTH eA, T4F, URMACRERAT, TSH3, CUU, CMP, ADDONUAPLUS, T3T #### [facility] [address] [place] [id number] [facility] Ambulatory Visit Summaryon 0 02-24-2024 Ambulatory [...] 6 mos (no labs) Where: [address] [place] [address] [id number] Medications What How Much When Why Instructions [...] social activities (more content not included)... Normal [facility] Urology Office/Clinic Noteon 02-24-2024 Urology Office/Clinic Note [...] (N32.81: Overactive bladder) S/p Botox 100u 08/30/21. -[place] sxs only improved for a few weeks [...] Contact Information JAX BECKMAN, SUSAN [place], URL [address] [address] [phone] Additional Instructions: 6 mos (no labs) Patient [...] mg Tab, (more content not included)... Normal [facility] Comment on above: Result Comment: Elec tronically Signed By: SUSAN RANDOLPH PA-C\.br\Date and Time Signed: 02/24/24 10:53 EDT\.br\Electronically Co-Signed By: Sarah Ospina\.br\Date and Time Co-Signed: 02/24/24 10:44 EDT\.br\Electronically Co-Signed By: Sarah Ospina\.br\Date and Time Co-Signed: 02/24/24 10:47 EDT Laboratory - Chemistry and C hemistry - challengeon 02-04-2024 Bilirubin Ql (U) Negative NEGATIVE [facility] Glucose (U) [Mass/Vol] Negative NEGATIVE [facility] Ketones Ql (U) Negative NEGATIVE [facility] pH (U) 6.0 [pH] 5.0-9.0 [facility] Specific gravity (U) [Rel density] >=1.030 Abnormal 1.005-1.025 [facility] Urobilinogen Qn (U) 0.2 {Jose'U}/dL 0.2-1.0 [facility] Laboratory - Specimen inform ationon 02-04-2024 Appearance (U) CLEAR CLEAR [facility] Color (U) YELLOW YELLOW [facility] Laboratory - Urinalysison Leukocyte esterase Test strip Ql (U) TRACE Abnormal NEGATIVE [facility] Mucus Ql (Urine sed) TRACE Abnormal NONE SEEN [facility] Nitrite Ql (U) Negative NEGATIVE [facility] Protein Ql (U) TRACE mg/dL NEG/TRACE [facility] No Panel Informationon 02-03 Miscellaneous Test Comment See comment [facility] Comment on above: Specimen Source: UCC - Urine,Clean Catch - Urine CC - 200.100 Urine Bacteria TRACE #/HPF Abnormal NONE SEEN [facility] Urine Occult Blood Negative NEGATIVE [facility] Urine Other Casts NONE SEEN #/LPF NONE SEEN [facility] Urine Other Crystals None Seen #/HPF None Seen [facility] Urine RBC 0-2 #/HPF 0-2 [facility] Urine Squamous Epithelial Cells RARE #/LPF NONE/RARE [facility] Urine WBC 2-5 #/HPF Abnormal NONE SEEN [facility] Urine culture routineon 01-12 Bacteria identified Cx Nom (U) [facility] Alanine aminotransferase [En zymatic activity/volume] in Serum or PlasmaOrdered By: Ayanna Vicente on 10-17-2023 ALT [Catalytic activity/Vol] 28 U/L 7 [facility] Albumin [Mass/volume] in Ser um or Plasma by Bromocresol green (BCG) dye binding methoOrdered By: Ayanna Vicente on 10-17-2023 Albumin BCG dye [Mass/Vol] 4.1 g/dL 3.5-5.7 [facility] Alkaline phosphatase [Enzyma tic activity/volume] in Serum or PlasmaOrdered By: Ayanna Vicente on 10-17-2023 ALP [Catalytic activity/Vol] 93 U/L 34-104 [facility] Anisocytosis LM Ql (Bld)Orde red By: Ayanna Vicente on 10-17-2023 Anisocytosis Ql (Bld) Slight [facility] Aspartate aminotransferase [ Enzymatic activity/volume] in Serum or PlasmaOrdered By: Ayanna Vicente on 10-17-2023 AST [Catalytic activity/Vol] 30 U/L 13-39 [facility] Automated erythrocytes count in urine sediment (number/area)Ordered By: Ayanna Vicente on 10-17-2023 RBC Auto (Urine sed) [#/Area] 1-2 [HPF] 0-4 [facility] Automated leukocytes count i n urine sediment (number/area)Ordered By: Ayanna Vicente on 10-17-2023 WBC Auto (Urine sed) [#/Area] 10-19 [HPF] High 0-4 [facility] Basophils Auto (Bld) [#/Vol] Ordered By: Ayanna Vicente on 10-17-2023 Basophils (Bld) [#/Vol] N/A [facility] Basophils/100 WBC Auto (Bld) Ordered By: Ayanna Vicente on 10-17-2023 Basophils/100 WBC (Bld) N/A [facility] Bilirubin Test strip Ql (U)O rdered By: Ayanna Vicente on 10-17-2023 Bilirubin Ql (U) Negative Negative [facility] Bilirubin.total [Mass/volume ] in Serum or PlasmaOrdered By: Ayanna Vicente on 10-17-2023 Bilirubin [Mass/Vol] 0.4 mg/dL 0.3-1.0 [facility] Calcium [Mass/volume] in Ser um or PlasmaOrdered By: Ayanna Vicente on 10-17-2023 Calcium [Mass/Vol] 9.7 mg/dL 8.6-10.3 [facility] Carbon dioxide, total [Moles /volume] in Serum or PlasmaOrdered By: Ayanna Vicente on 10-17-2023 CO2 [Moles/Vol] 30.9 mmol/L 21.0-31.0 [facility] Chloride [Moles/volume] in S ebony or PlasmaOrdered By: Ayanna Vicente on 10-17-2023 Chloride [Moles/Vol] 105 mmol/L 98-107 [facility] Cholesterol [Mass/volume] in Serum or PlasmaOrdered By: Ayanna Vicente on 10-17-2023 Cholesterol [Mass/Vol] 131 mg/dL Low 140-200 [facility] Comment on above: Chol less than 200 m g/dl low riskChol 201-239 mg/dl borderline riskChol 240 mg/dl and greater high risk Cholesterol in LDL Calc [Mas s/Vol]Ordered By: Ayanna Vicente on 10-17-2023 Cholesterol in LDL [Mass/Vol] 30 mg/dL 0-100 [facility] Comment on above: LDL ATP III CLASSIFI CATIONLDL less than 100 mg/dL OptimalLDL 100-129 mg/dL Near or above optimalLDL 130-159 mg/dL Borderline highLDL 160-189 mg/dL HighLDL greater than 189 mg/dL Very high Cholesterol in VLDL Calc [Ma ss/Vol]Ordered By: Ayanna Vicente on 10-17-2023 Cholesterol in VLDL [Mass/Vol] 60 mg/dL [facility] Color Auto (U)Ordered By: Vasile Vicente on 10-17-2023 Color (U) Yellow Yellow [facility] Creatinine [Mass/volume] in Serum or PlasmaOrdered By: Ayanna Vicente on 10-17-2023 Creatinine [Mass/Vol] 1.15 mg/dL 0.60-1.20 [facility] Eosinophils Auto (Bld) [#/Vo l]Ordered By: Ayanna Vicente on 10-17-2023 Eosinophils (Bld) [#/Vol] N/A [facility] Eosinophils/100 WBC Auto (Bl d)Ordered By: Ayanna Vicente on 10-17-2023 Eosinophils/100 WBC (Bld) N/A [facility] Eosinophils/100 WBC Manual c nt (Bld)Ordered By: Ayanna Vicente on 10-17-2023 Eosinophils/100 WBC (Bld) 2 % 1-3 [facility] Erythrocyte distribution wid th Auto (RBC) [Ratio]Ordered By: Ayanna Vicente on 10-17-2023 Erythrocyte distribution width (RBC) [Ratio] 15.2 % 11.9-15.3 [facility] Globulin Calc (S) [Mass/Vol] Ordered By: Ayanna Vicente on 10-17-2023 Globulin (S) [Mass/Vol] 2.6 g/dL [facility] Glucose [Mass/volume] in Ser um or PlasmaOrdered By: Ayanna Vicente on 10-17-2023 Glucose [Mass/Vol] 162 mg/dL High 70-100 [facility] Comment on above: ADA recommended refe [...] hemoglobin (Bld) [Mass/Vol] 197 mg/dL [facility] Hematocrit Auto (Bld) [Volum e fraction]Ordered By: Ayanna Vicente on 10-17-2023 Hematocrit (Bld) [Volume fraction] 38.8 % 34.0-46.4 [facility] Hemoglobin A1c percentageOrd ered By: Ayanna Vicente on 10-17-2023 HbA1c (Bld) [Mass fraction] 8.5 % High 4.3-5.6 [facility] Comment on above: Increased risk for d iabetes: 5.7 - 6.4diabetes: >6.4glycemic control for adults with diabetes: <7.0 Hemoglobin [Mass/volume] in BloodOrdered By: Ayanna Vicente on 10-17-2023 Hemoglobin (Bld) [Mass/Vol] 12.2 g/dL 11.8-15.4 [facility] Ketones Auto test strip (U) [Mass/Vol]Ordered By: Ayanna Vicente on 10-17-2023 Ketones (U) [Mass/Vol] Negative Negative [facility] Laboratory - UrinalysisOrder ed By: Ayanna Vicente on 10-17-2023 Hyaline casts LM Ql (Urine sed) None seen [LPF] 0-8 [facility] Leukocytes [#/volume] correc andreina for nucleated erythrocytes in Blood by Automated counOrdered By: Ayanna Vicente on 10-17-2023 WBC corrected for nucl RBC Auto (Bld) [#/Vol] 15.9 10*3/uL High 3.8-11.6 [facility] Lymphocytes Auto (Bld) [#/Vo l]Ordered By: Ayanna Vicente on 10-17-2023 Lymphocytes (Bld) [#/Vol] N/A [facility] Lymphocytes/100 WBC Auto (Bl d)Ordered By: Ayanna Vicente on 10-17-2023 Lymphocytes/100 WBC (Bld) N/A [facility] Lymphocytes/100 WBC Manual c nt (Bld)Ordered By: Ayanna Vicente on 10-17-2023 Lymphocytes/100 WBC (Bld) 51 % High 18-42 [facility] MCH Auto (RBC) [Entitic mass ]Ordered By: Ayanna Vicente on 10-17-2023 MCH (RBC) [Entitic mass] 28.0 pg 24.7-34.3 [facility] MCHC Auto (RBC) [Mass/Vol]Or dered By: Ayanna Vicente on 10-17-2023 MCHC (RBC) [Mass/Vol] 31.5 g/dL Low 32.0-35.[address] [facility] MCV Auto (RBC) [Entitic vol] Ordered By: Ayanna Vicente on 10-17-2023 MCV (RBC) [Entitic vol] 89.0 fL 80-100 [facility] Microalbumin [Mass/volume] i n UrineOrdered By: Ayanna Vicente on 10-17-2023 Albumin DL <= 20 mg/L (U) [Mass/Vol] 1.9 mg/dL High 0.0-1.8 [facility] Microcytes LM Ql (Bld)Ordere d By: Ayanna Vicente on 10-17-2023 Microcytes Ql (Bld) Slight [facility] Mon[facility] Auto (Bld) [#/Vol] Ordered By: Ayanna Vicente on 10-17-2023 Monocytes (Bld) [#/Vol] N/A [facility] Monocytes/100 WBC Auto (Bld) Ordered By: Ayanna Vicente on 10-17-2023 Monocytes/100 WBC (Bld) N/A [facility] Monocytes/100 WBC Manual cnt (Bld)Ordered By: Ayanna Vicente on 10-17-2023 Monocytes/100 WBC (Bld) 8 % 2-11 [facility] Myelocytes/100 WBC Manual cn t (Bld)Ordered By: Ayanna Vicente on 10-17-2023 Myelocytes/100 WBC (Bld) 1 % High 0-0 [facility] Neutrophils Auto (Bld) [#/Vo l]Ordered By: Ayanna Vicente on 10-17-2023 Neutrophils (Bld) [#/Vol] N/A [facility] Neutrophils/100 WBC Auto (Bl d)Ordered By: Ayanna Vicente on 10-17-2023 Neutrophils/100 WBC (Bld) N/A [facility] Nitrite Test strip Ql (U)Ord ered By: Ayanna Vicente on 10-17-2023 Nitrite Ql (U) Positive High Negative [facility] No Panel InformationOrdered By: Ayanna Vicente on 10-17-2023 Estimated GFR (CKD-EPI) 47.859 mL/Min [facility] Creatinine Clearance (Chem N/A [facility] Nucleated erythrocytes [Pres ence] in Blood by Automated countOrdered By: Ayanna Vicente on 10-17-2023 Nucleated RBC Auto Ql (Bld) N/A [facility] Platelet adequacy [Presence] in Blood by Light microscopyOrdered By: Ayanna Vicente on 10-17-2023 Platelets LM Ql (Bld) Normal Normal [facility] Platelet mean volume Auto (B ld) [Entitic vol]Ordered By: Ayanna Vicente on 10-17-2023 Platelet mean volume (Bld) [Entitic vol] 9.2 fL 6.3-10.7 [facility] Platelet morphology finding [Identifier] in BloodOrdered By: Ayanna Vicente on 10-17-2023 Platelet morphology finding Nom (Bld) Normal Normal [facility] Platelets Auto (Bld) [#/Vol] Ordered By: Ayanna Vicente on 10-17-2023 Platelets (Bld) [#/Vol] 231 10*3/uL 150-450 [facility] Poikilocytosis [Presence] in Blood by Light microscopyOrdered By: Ayanna Vicente on 10-17-2023 Poikilocytosis LM Ql (Bld) Slight [facility] Potassium [Moles/volume] in Serum or PlasmaOrdered By: Ayanna Vicente on 10-17-2023 Potassium [Moles/Vol] 5.1 mmol/L 3.5-5.1 [facility] Protein Auto test strip (U) [Mass/Vol]Ordered By: Ayanna Vicente on 10-17-2023 Protein (U) [Mass/Vol] Trace mg/dL High Negative [facility] Protein [Mass/volume] in Ser um or PlasmaOrdered By: Ayanna Vicente on 10-17-2023 Protein [Mass/Vol] 6.7 g/dL 6.4-8.9 [facility] RBC Auto (Bld) [#/Vol]Ordere d By: Ayanna Vicente on 10-17-2023 RBC (Bld) [#/Vol] 4.36 10*6/uL 3.60-5.00 [facility] RBC morphologyOrdered By: Vasile Vicente on 10-17-2023 RBC morphology finding Nom (Bld) N/A [facility] Segmented neutrophils/100 WB C Manual cnt (Bld)Ordered By: Ayanna Vicente on 10-17-2023 Segmented neutrophils/100 WBC (Bld) 33 % Low 50-70 [facility] Serum or plasma albumin/glob ulin mass ratioOrdered By: Ayanna Vicente on 10-17-2023 Albumin/Globulin [Mass ratio] 1.6 {ratio} [facility] Serum or plasma anion gap de terminationOrdered By: Ayanna Vicente on 10-17-2023 Anion gap [Moles/Vol] 8.2 mmol/L 6.0-15.0 [facility] Serum or plasma high density lipoprotein (HDL) cholesterol measurementOrdered By: Ayanna Vicente on 10-17-2023 Cholesterol in HDL [Mass/Vol] 40 mg/dL 23-92 [facility] Comment on above: HDL CHOL ATP-III CLA SSIFICATION Cardiovascular RiskHDL > or equal to 60 mg/dL LOWHDL < 40 mg/dL HIGH Serum or plasma total choles terol/high density lipoprotein (HDL) cholesterol mass ratOrdered By: Ayanna Vicente on 10-17-2023 Cholesterol.total/Choles terol in HDL [Mass ratio] 3.3 {ratio} <5.0 [facility] Sodium [Moles/volume] in Ser um or PlasmaOrdered By: Ayanna Vicente on 10-17-2023 Sodium [Moles/Vol] 139 mmol/L 136-145 [facility] Specific gravity Auto test s trip (U) [Rel density]Ordered By: Ayanna Vicente on 10-17-2023 Specific gravity (U) [Rel density] 1.018 1.001-1.030 [facility] Squamous epithelial cells de tection in urine sediment by light microscopyOrdered By: Ayanna Vicente on 10-17-2023 Epithelial cells.squamous LM Ql (Urine sed) 0-1 [HPF] 0-2 [facility] Thyrotropin [Units/volume] i n Serum or PlasmaOrdered By: Ayanna Vicente on 10-17-2023 TSH Qn 1.46 m[IU]/L 0.45-5.33 [facility] Thyroxine (T4) free [Mass/vo lume] in Serum or PlasmaOrdered By: Ayanna Vicente on 10-17-2023 Free T4 [Mass/Vol] 1.02 ng/dL 0.61-1.12 [facility] Triglyceride [Mass/volume] i n Serum or PlasmaOrdered By: Ayanna Vicente on 10-17-2023 Triglyceride [Mass/Vol] 303 mg/dL High 0-149 [facility] Comment on above: TRIG ATP III CLASSIF ICATIONTRIG less than 150 mg/dL NormalTRIG 150-199 mg/dL Borderline highTRIG 200-500 mg/dL High TRIG greater than 500 mg/dL Very highStandard traceable to the Center for Disease Conrtrol and Prevention (CDC) test method. Triiodothyronine (T3) Free [ Mass/volume] in Serum or PlasmaOrdered By: Ayanna Vicente on 10-17-2023 Free T3 [Mass/Vol] 3.22 pg/mL 2.50-3.90 [facility] Urea nitrogen [Mass/volume] in Serum or PlasmaOrdered By: Ayanna Vicente on 10-17-2023 Urea nitrogen [Mass/Vol] 30 mg/dL High 7-25 [facility] Urine bacteria detection by automated methodOrdered By: Ayanna Vicente on 10-17-2023 Bacteria Auto Ql (U) 4+ High None Seen [facility] Urine clarity by refractomet ry automatedOrdered By: Ayanna Vicente on 10-17-2023 Clarity Refractometry automated (U) Clear Clear [facility] Urine culture routineOrdered By: Ayanna Vicente on 10-17-2023 Bacteria identified Cx Nom (U) Escherichia coli (MDRO) Abnormal [facility] Urine glucose measurement by automated test strip (mass/volume)Ordered By: Ayanna Vicente on 10-17-2023 Glucose Auto test strip (U) [Mass/Vol] Normal mg/dL Normal [facility] Urine hemoglobin detection b y automated test stripOrdered By: Ayanna Vicente on 10-17-2023 Hemoglobin Auto test strip Ql (U) Negative Negative [facility] Urine leukocyte esterase det ection by automated test stripOrdered By: Ayanna Vicente on 10-17-2023 Leukocyte esterase Auto test strip Ql (U) 2+ High Negative [facility] Urobilinogen Auto test strip (U) [Mass/Vol]Ordered By: Ayanna Vicente on 10-17-2023 Urobilinogen (U) [Mass/Vol] Normal mg/dL Normal [facility] Variant lymphocytes/100 WBC Manual cnt (Bld)Ordered By: Ayanna Vicente on 10-17-2023 Variant lymphocytes/100 WBC (Bld) 6 % 0-12 [facility] WBC Auto (Bld) [#/Vol]Ordere d By: Ayanna Vicente on 10-17-2023 WBC (Bld) [#/Vol] 15.9 10*3/uL High 3.8-11.6 [facility] pH Auto test strip (U)Ordere d By: Ayanna Vicente on 10-17-2023 pH (U) 5.5 [pH] 5.0-9.0 [facility] Alanine aminotransferase [En zymatic activity/volume] in Serum or PlasmaOrdered By: Ayanna Vicente on 04-09-2023 ALT [Catalytic activity/Vol] 25 U/L 7-52 [facility] Albumin [Mass/volume] in Ser um or Plasma by Bromocresol green (BCG) dye binding methoOrdered By: Ayanna Vicente on 04-09-2023 Albumin BCG dye [Mass/Vol] 4.2 g/dL 3.5-5.7 [facility] Alkaline phosphatase [Enzyma tic activity/volume] in Serum or PlasmaOrdered By: Ayanna Vicente on 04-09-2023 ALP [Catalytic activity/Vol] 95 U/L 34-104 [facility] Anisocytosis LM Ql (Bld)Orde red By: Ayanna Vicente on 04-09-2023 Anisocytosis Ql (Bld) Slight [facility] Aspartate aminotransferase [ Enzymatic activity/volume] in Serum or PlasmaOrdered By: Ayanna Vicente on 04-09-2023 AST [Catalytic activity/Vol] 21 U/L 13-39 [facility] Basophils Auto (Bld) [#/Vol] Ordered By: Ayanna Vicente on 04-09-2023 Basophils (Bld) [#/Vol] N/A [facility] Basophils/100 WBC Auto (Bld) Ordered By: Ayanna Vicente on 04-09-2023 Basophils/100 WBC (Bld) N/A [facility] Bilirubin.total [Mass/volume ] in Serum or PlasmaOrdered By: Ayanna Vicente on 04-09-2023 Bilirubin [Mass/Vol] 0.4 mg/dL 0.3-1.0 [facility] Calcium [Mass/volume] in Ser um or PlasmaOrdered By: Ayanna Vicente on 04-09-2023 Calcium [Mass/Vol] 9.9 mg/dL 8.6-10.3 [facility] Carbon dioxide, total [Moles /volume] in Serum or PlasmaOrdered By: Ayanna Vicente on 04-09-2023 CO2 [Moles/Vol] 31.5 mmol/L 21.0-31.0 [facility] Chloride [Moles/volume] in S ebony or PlasmaOrdered By: Ayanna Vicente on 04-09-2023 Chloride [Moles/Vol] 103 mmol/L 98-107 [facility] Cholesterol [Mass/volume] in Serum or PlasmaOrdered By: Ayanna Vicente on 04-09-2023 Cholesterol [Mass/Vol] 139 mg/dL 140-200 [facility] Comment on above: Chol less than 200 m g/dl low riskChol 201-239 mg/dl borderline riskChol 240 mg/dl and greater high risk Cholesterol in LDL Calc [Mas s/Vol]Ordered By: Ayanna Vicente on 04-09-2023 Cholesterol in LDL [Mass/Vol] 27 mg/dL 0-100 [facility] Comment on above: LDL ATP III CLASSIFI CATIONLDL less than 100 mg/dL OptimalLDL 100-129 mg/dL Near or above optimalLDL 130-159 mg/dL Borderline highLDL 160-189 mg/dL HighLDL greater than 189 mg/dL Very high Cholesterol in VLDL Calc [Ma ss/Vol]Ordered By: Ayanna Vicente on 04-09-2023 Cholesterol in VLDL [Mass/Vol] 69 mg/dL [facility] Creatinine [Mass/volume] in Serum or PlasmaOrdered By: Ayanna Vicente on 04-09-2023 Creatinine [Mass/Vol] 1.06 mg/dL 0.60-1.20 [facility] Eosinophils Auto (Bld) [#/Vo l]Ordered By: Ayanna Vicente on 04-09-2023 Eosinophils (Bld) [#/Vol] N/A [facility] Eosinophils/100 WBC Auto (Bl d)Ordered By: Ayanna Vicente on 04-09-2023 Eosinophils/100 WBC (Bld) N/A [facility] Eosinophils/100 WBC Manual c nt (Bld)Ordered By: Ayanna Vicente on 04-09-2023 Eosinophils/100 WBC (Bld) 5 % 1-3 [facility] Erythrocyte distribution wid th Auto (RBC) [Ratio]Ordered By: Ayanna Vicente on 04-09-2023 Erythrocyte distribution width (RBC) [Ratio] 15.1 % 11.9-15.3 [facility] Globulin Calc (S) [Mass/Vol] Ordered By: Ayanna Vicente on 04-09-2023 Globulin (S) [Mass/Vol] 2.4 g/dL [facility] Glucose [Mass/volume] in Ser um or PlasmaOrdered By: Ayanna Vicente on 04-09-2023 Glucose [Mass/Vol] 154 mg/dL 70-100 [facility] Comment on above: ADA recommended refe [...] hemoglobin (Bld) [Mass/Vol] 200 mg/dL [facility] Hematocrit Auto (Bld) [Volum e fraction]Ordered By: Ayanna Vicente on 04-09-2023 Hematocrit (Bld) [Volume fraction] 37.2 % 34.0-46.4 [facility] Hemoglobin A1c percentageOrd ered By: Ayanna Vicente on 04-09-2023 HbA1c (Bld) [Mass fraction] 8.6 % 4.3-5.6 [facility] Comment on above: Increased risk for d iabetes: 5.7 - 6.4diabetes: >6.4glycemic control for adults with diabetes: <7.0 Hemoglobin [Mass/volume] in BloodOrdered By: Ayanna Vicente on 04-09-2023 Hemoglobin (Bld) [Mass/Vol] 12.2 g/dL 11.8-15.4 [facility] Leukocytes [#/volume] correc andreina for nucleated erythrocytes in Blood by Automated counOrdered By: Ayanna Vicente on 04-09-2023 WBC corrected for nucl RBC Auto (Bld) [#/Vol] 15.3 10*3/uL 3.8-11.6 [facility] Lymphocytes Auto (Bld) [#/Vo l]Ordered By: Ayanna Vicente on 04-09-2023 Lymphocytes (Bld) [#/Vol] N/A [facility] Lymphocytes/100 WBC Auto (Bl d)Ordered By: Ayanna Vicente on 04-09-2023 Lymphocytes/100 WBC (Bld) N/A [facility] Lymphocytes/100 WBC Manual c nt (Bld)Ordered By: Ayanna Vicente on 04-09-2023 Lymphocytes/100 WBC (Bld) 59 % 18-42 [facility] MCH Auto (RBC) [Entitic mass ]Ordered By: Ayanna Vicente on 04-09-2023 MCH (RBC) [Entitic mass] 29.1 pg 24.7-34.3 [facility] MCHC Auto (RBC) [Mass/Vol]Or dered By: Ayanna Vicente on 04-09-2023 MCHC (RBC) [Mass/Vol] 32.9 g/dL 32.0-35.0 [facility] MCV Auto (RBC) [Entitic vol] Ordered By: Ayanna Vicente on 04-09-2023 MCV (RBC) [Entitic vol] 88.5 fL 80-100 [facility] Monocytes Auto (Bld) [#/Vol] Ordered By: Ayanna Vicente on 04-09-2023 Monocytes (Bld) [#/Vol] N/A [facility] Monocytes/100 WBC Auto (Bld) Ordered By: Ayanna Vicente on 04-09-2023 Monocytes/100 WBC (Bld) N/A [facility] Monocytes/100 WBC Manual cnt (Bld)Ordered By: Ayanna Vicente on 04-09-2023 Monocytes/100 WBC (Bld) 7 % 2-11 [facility] Myelocytes/100 WBC Manual cn t (Bld)Ordered By: Ayanna Vicente on 04-09-2023 Myelocytes/100 WBC (Bld) 1 % 0-0 [facility] Neutrophils Auto (Bld) [#/Vo l]Ordered By: Ayanna Vicente on 04-09-2023 Neutrophils (Bld) [#/Vol] N/A [facility] Neutrophils/100 WBC Auto (Bl d)Ordered By: Ayanna Vicente on 04-09-2023 Neutrophils/100 WBC (Bld) N/A [facility] No Panel InformationOrdered By: Ayanna Vicente on 04-09-2023 Estimated GFR (CKD-EPI) 53.106 mL/Min [facility] Creatinine Clearance (Chem N/A [facility] Nucleated erythrocytes [Pres ence] in Blood by Automated countOrdered By: Ayanna Vicente on 04-09-2023 Nucleated RBC Auto Ql (Bld) N/A [facility] Ovalocyte detectionOrdered B y: Ayanna Vicente on 04-09-2023 Ovalocytes LM Ql (Bld) [facility] Platelet adequacy [Presence] in Blood by Light microscopyOrdered By: Ayanna Vicente on 04-09-2023 Platelets LM Ql (Bld) Normal Normal [facility] Platelet mean volume Auto (B ld) [Entitic vol]Ordered By: Ayanna Vicente on 04-09-2023 Platelet mean volume (Bld) [Entitic vol] 9.5 fL 6.3-10.7 [facility] Platelet morphology finding [Identifier] in BloodOrdered By: Ayanna Vicente on 04-09-2023 Platelet morphology finding Nom (Bld) Normal Normal [facility] Platelets Auto (Bld) [#/Vol] Ordered By: Ayanna Vicente on 04-09-2023 Platelets (Bld) [#/Vol] 211 10*3/uL 150-450 [facility] Potassium [Moles/volume] in Serum or PlasmaOrdered By: Ayanna Vicente on 04-09-2023 Potassium [Moles/Vol] 5.0 mmol/L 3.5-5.1 [facility] Protein [Mass/volume] in Ser um or PlasmaOrdered By: Ayanna Vicente on 04-09-2023 Protein [Mass/Vol] 6.6 g/dL 6.4-8.9 [facility] RBC Auto (Bld) [#/Vol]Ordere d By: Ayanna Vicente on 04-09-2023 RBC (Bld) [#/Vol] 4.20 10*6/uL 3.60-5.00 [facility] RBC morphologyOrdered By: Vasile Vicente on 04-09-2023 RBC morphology finding Nom (Bld) N/A [facility] Segmented neutrophils/100 WB C Manual cnt (Bld)Ordered By: Ayanna Vicente on 04-09-2023 Segmented neutrophils/100 WBC (Bld) 27 % 50-70 [facility] Serum or plasma albumin/glob ulin mass ratioOrdered By: Ayanna Vicente on 04-09-2023 Albumin/Globulin [Mass ratio] 1.8 {ratio} [facility] Serum or plasma anion gap de terminationOrdered By: Ayanna Vicente on 04-09-2023 Anion gap [Moles/Vol] 10.5 mmol/L 6.0-15.0 [facility] Serum or plasma high density lipoprotein (HDL) cholesterol measurementOrdered By: Ayanna Vicente on 04-09-2023 Cholesterol in HDL [Mass/Vol] 42 mg/dL 23-92 [facility] Comment on above: HDL CHOL ATP-III CLA SSIFICATION Cardiovascular RiskHDL > or equal to 60 mg/dL LOWHDL < 40 mg/dL HIGH Serum or plasma total choles terol/high density lipoprotein (HDL) cholesterol mass ratOrdered By: Ayanna Vicente on 04-09-2023 Cholesterol.total/Choles terol in HDL [Mass ratio] 3.3 {ratio} <5.0 [facility] Sodium [Moles/volume] in Ser um or PlasmaOrdered By: Ayanna Vicente on 04-09-2023 Sodium [Moles/Vol] 140 mmol/L 136-145 [facility] Thyrotropin [Units/volume] i n Serum or PlasmaOrdered By: Ayanna Vicente on 04-09-2023 TSH Qn 1.62 m[IU]/L 0.45-5.33 [facility] Thyroxine (T4) free [Mass/vo lume] in Serum or PlasmaOrdered By: Ayanna Vicente on 04-09-2023 Free T4 [Mass/Vol] 0.78 ng/dL 0.61-1.12 [facility] Triglyceride [Mass/volume] i n Serum or PlasmaOrdered By: Ayanan Vicente on 04-09-2023 Triglyceride [Mass/Vol] 349 mg/dL 0-149 [facility] Comment on above: TRIG ATP III CLASSIF ICATIONTRIG less than 150 mg/dL NormalTRIG 150-199 mg/dL Borderline highTRIG 200-500 mg/dL High TRIG greater than 500 mg/dL Very highStandard traceable to the Center for Disease Conrtrol and Prevention (CDC) test method. Triiodothyronine (T3) Free [ Mass/volume] in Serum or PlasmaOrdered By: Ayanna Vicente on 04-09-2023 Free T3 [Mass/Vol] 2.71 pg/mL 2.50-3.90 [facility] Urea nitrogen [Mass/volume] in Serum or PlasmaOrdered By: Ayanna Vicente on 04-09-2023 Urea nitrogen [Mass/Vol] 28 mg/dL 7-25 [facility] Variant lymphocytes/100 WBC Manual cnt (Bld)Ordered By: Ayanna Vicente on 04-09-2023 Variant lymphocytes/100 WBC (Bld) 1 % 0-12 [facility] WBC Auto (Bld) [#/Vol]Ordere d By: Ayanna Vicente on 04-09-2023 WBC (Bld) [#/Vol] 15.3 10*3/uL 3.8-11.6 [facility] Alanine aminotransferase [En zymatic activity/volume] in Serum or PlasmaOrdered By: Ayanna Vicente on 09-30-2022 ALT [Catalytic activity/Vol] 25 U/L 7-52 [facility] Albumin [Mass/volume] in Ser um or Plasma by Bromocresol green (BCG) dye binding methoOrdered By: Ayanna Vicente on 09-30-2022 Albumin BCG dye [Mass/Vol] 4.3 g/dL 3.5-5.7 [facility] Alkaline phosphatase [Enzyma tic activity/volume] in Serum or PlasmaOrdered By: Ayanna Vicente on 09-30-2022 ALP [Catalytic activity/Vol] 97 U/L 34-104 [facility] Anisocytosis LM Ql (Bld)Orde red By: Ayanna Vicente on 09-30-2022 Anisocytosis Ql (Bld) Slight [facility] Aspartate aminotransferase [ Enzymatic activity/volume] in Serum or PlasmaOrdered By: Ayanna Vicente on 09-30-2022 AST [Catalytic activity/Vol] 22 U/L 13-39 [facility] Basophils Auto (Bld) [#/Vol] Ordered By: Ayanna Vicente on 09-30-2022 Basophils (Bld) [#/Vol] 0.0 10*3/uL 0.0-0.2 [facility] Basophils/100 WBC Auto (Bld) Ordered By: Ayanna Vicente on 09-30-2022 Basophils/100 WBC (Bld) 0.3 % . [facility] Bilirubin.total [Mass/volume ] in Serum or PlasmaOrdered By: Ayanna Vicente on 09-30-2022 Bilirubin [Mass/Vol] 0.3 mg/dL 0.3-1.0 [facility] Calcium [Mass/volume] in Ser um or PlasmaOrdered By: Ayanna Vicente on 09-30-2022 Calcium [Mass/Vol] 9.3 mg/dL 8.6-10.3 [facility] Carbon dioxide, total [Moles /volume] in Serum or PlasmaOrdered By: Ayanna Vicente on 09-30-2022 CO2 [Moles/Vol] 30.4 mmol/L 21.0-31.0 [facility] Chloride [Moles/volume] in S ebony or PlasmaOrdered By: Ayanna Vicente on 09-30-2022 Chloride [Moles/Vol] 104 mmol/L 98-107 [facility] Cholesterol [Mass/volume] in Serum or PlasmaOrdered By: Ayanna Vicente on 09-30-2022 Cholesterol [Mass/Vol] 117 mg/dL 140-200 [facility] Comment on above: Chol less than 200 m g/dl low riskChol 201-239 mg/dl borderline riskChol 240 mg/dl and greater high risk Cholesterol in LDL Calc [Mas s/Vol]Ordered By: Ayanna Vicente on 09-30-2022 Cholesterol in LDL [Mass/Vol] 35 mg/dL 0-100 [facility] Comment on above: LDL ATP III CLASSIFI CATIONLDL less than 100 mg/dL OptimalLDL 100-129 mg/dL Near or above optimalLDL 130-159 mg/dL Borderline highLDL 160-189 mg/dL HighLDL greater than 189 mg/dL Very high Cholesterol in VLDL Calc [Ma ss/Vol]Ordered By: Ayanna Vicente on 09-30-2022 Cholesterol in VLDL [Mass/Vol] 43 mg/dL [facility] Creatinine [Mass/volume] in Serum or PlasmaOrdered By: Ayanna Vicente on 09-30-2022 Creatinine [Mass/Vol] 1.25 mg/dL 0.60-1.20 [facility] Eosinophils Auto (Bld) [#/Vo l]Ordered By: Ayanna Vicente on 09-30-2022 Eosinophils (Bld) [#/Vol] 0.3 10*3/uL 0.0-0.45 [facility] Eosinophils/100 WBC Auto (Bl d)Ordered By: Ayanna Vicente on 09-30-2022 Eosinophils/100 WBC (Bld) 2.3 % . [facility] Erythrocyte distribution wid th Auto (RBC) [Ratio]Ordered By: Ayanna Vicente on 09-30-2022 Erythrocyte distribution width (RBC) [Ratio] 15.4 % 11.9-15.3 [facility] Globulin Calc (S) [Mass/Vol] Ordered By: Ayanna Vicente on 09-30-2022 Globulin (S) [Mass/Vol] 2.4 g/dL [facility] Glucose [Mass/volume] in Ser um or PlasmaOrdered By: Ayanna Vicente on 09-30-2022 Glucose [Mass/Vol] 135 mg/dL 74-109 [facility] Comment on above: ADA recommended refe [...] hemoglobin (Bld) [Mass/Vol] 203 mg/dL [facility] Hematocrit Auto (Bld) [Volum e fraction]Ordered By: Ayanna Vicente on 09-30-2022 Hematocrit (Bld) [Volume fraction] 37.0 % 34.0-46.4 [facility] Hemoglobin A1c percentageOrd ered By: Ayanna Vicente on 09-30-2022 HbA1c (Bld) [Mass fraction] 8.7 % 4.3-5.6 [facility] Comment on above: Increased risk for d iabetes: 5.7 - 6.4diabetes: >6.4glycemic control for adults with diabetes: <7.0 Hemoglobin [Mass/volume] in BloodOrdered By: Ayanna Vicente on 09-30-2022 Hemoglobin (Bld) [Mass/Vol] 12.1 g/dL 11.8-15.4 [facility] Laboratory - Chemistry and C hemistry - challengeOrdered By: Ayanna Vicente on 09-30-2022 GFR/1.73 sq M.predicted MDRD (S/P/Bld) [Vol rate/Area] 43.572 mL/min/{1.73_m2} [facility] Leukocytes [#/volume] correc andreina for nucleated erythrocytes in Blood by Automated counOrdered By: Ayanna Vicente on 09-30-2022 WBC corrected for nucl RBC Auto (Bld) [#/Vol] 15.2 10*3/uL 3.8-11.6 [facility] Lymphocytes Auto (Bld) [#/Vo l]Ordered By: Ayanna Vicente on 09-30-2022 Lymphocytes (Bld) [#/Vol] 10.5 10*3/uL 1.00-4.8 [facility] Lymphocytes/100 WBC Auto (Bl d)Ordered By: Ayanna Vicente on 09-30-2022 Lymphocytes/100 WBC (Bld) 69.4 % . [facility] MCH Auto (RBC) [Entitic mass ]Ordered By: Ayanna Vicente on 09-30-2022 MCH (RBC) [Entitic mass] 28.4 pg 24.7-34.3 [facility] MCHC Auto (RBC) [Mass/Vol]Or dered By: Ayanna Vicente on 09-30-2022 MCHC (RBC) [Mass/Vol] 32.7 g/dL 32.0-35.[address] [facility] MCV Auto (RBC) [Entitic vol] Ordered By: Ayanna Vicente on 09-30-2022 MCV (RBC) [Entitic vol] 86.9 fL 80-100 [facility] Microalbumin [Mass/volume] i n UrineOrdered By: Ayanna Vicente on 09-30-2022 Albumin DL <= 20 mg/L (U) [Mass/Vol] 1.9 mg/dL 0.0-1.8 [facility] Monocytes Auto (Bld) [#/Vol] Ordered By: Ayanna Vicente on 09-30-2022 Monocytes (Bld) [#/Vol] 0.7 10*3/uL 0.0-0.8 [facility] Monocytes/100 WBC Auto (Bld) Ordered By: Ayanna Vicente on 09-30-2022 Monocytes/100 WBC (Bld) 4.5 % . [facility] Neutrophils Auto (Bld) [#/Vo l]Ordered By: Aaynna Vicente on 09-30-2022 Neutrophils (Bld) [#/Vol] 3.6 10*3/uL 1.8-7.7 [facility] Neutrophils/100 WBC Auto (Bl d)Ordered By: yAanna Vicente on 09-30-2022 Neutrophils/100 WBC (Bld) 23.5 % . [facility] No Panel InformationOrdered By: Ayanna Vicente on 09-30-2022 Pharmacy Creatinine Clearance (Chem N/A [facility] Nucleated erythrocytes [Pres ence] in Blood by Automated countOrdered By: Ayanna Vicente on 09-30-2022 Nucleated RBC Auto Ql (Bld) 0.6 /100{WBC} 0-0.5 [facility] Ovalocyte detectionOrdered B y: Ayanna Vicente on 09-30-2022 Ovalocytes LM Ql (Bld) Slight [facility] Platelet adequacy [Presence] in Blood by Light microscopyOrdered By: Ayanna Vicente on 09-30-2022 Platelets LM Ql (Bld) Normal Normal [facility] Platelet mean volume Auto (B ld) [Entitic vol]Ordered By: Ayanna Vicente on 09-30-2022 Platelet mean volume (Bld) [Entitic vol] 8.9 fL 6.3-10.7 [facility] Platelet morphology finding [Identifier] in BloodOrdered By: Ayanna Vicente on 09-30-2022 Platelet morphology finding Nom (Bld) Normal Normal [facility] Platelets Auto (Bld) [#/Vol] Ordered By: Ayanna Vicente on 09-30-2022 Platelets (Bld) [#/Vol] 230 10*3/uL 150-450 [facility] Poikilocytosis [Presence] in Blood by Light microscopyOrdered By: Ayanna Vicente on 09-30-2022 Poikilocytosis LM Ql (Bld) Slight [facility] Potassium [Moles/volume] in Serum or PlasmaOrdered By: Ayanna Vicente on 09-30-2022 Potassium [Moles/Vol] 4.5 mmol/L 3.5-5.1 [facility] Protein [Mass/volume] in Ser um or PlasmaOrdered By: Ayanna Vicente on 09-30-2022 Protein [Mass/Vol] 6.7 g/dL 6.4-8.9 [facility] RBC Auto (Bld) [#/Vol]Ordere d By: Ayanna Vicente on 09-30-2022 RBC (Bld) [#/Vol] 4.26 10*6/uL 3.60-5.00 [facility] RBC morphologyOrdered By: Vasile Vicente on 09-30-2022 RBC morphology finding Nom (Bld) N/A [facility] Serum or plasma albumin/glob ulin mass ratioOrdered By: Ayanna Vicente on 09-30-2022 Albumin/Globulin [Mass ratio] 1.8 {ratio} [facility] Serum or plasma anion gap de terminationOrdered By: Ayanna Vicente on 09-30-2022 Anion gap [Moles/Vol] 12.1 mmol/L 6.0-15.0 [facility] Serum or plasma high density lipoprotein (HDL) cholesterol measurementOrdered By: Ayanna Vicente on 09-30-2022 Cholesterol in HDL [Mass/Vol] 39 mg/dL 35-85 [facility] Comment on above: HDL CHOL ATP-III CLA SSIFICATION Cardiovascular RiskHDL > or equal to 60 mg/dL LOWHDL < 40 mg/dL HIGH Serum or plasma total choles terol/high density lipoprotein (HDL) cholesterol mass ratOrdered By: Ayanna Vicente on 09-30-2022 Cholesterol.total/Choles terol in HDL [Mass ratio] 3.0 {ratio} <5.0 [facility] Sodium [Moles/volume] in Ser um or PlasmaOrdered By: Ayanna Vicente on 09-30-2022 Sodium [Moles/Vol] 142 mmol/L 136-145 [facility] Thyrotropin [Units/volume] i n Serum or PlasmaOrdered By: Ayanna Vicente on 09-30-2022 TSH Qn 2.04 m[IU]/L 0.45-5.33 [facility] Thyroxine (T4) free [Mass/vo lume] in Serum or PlasmaOrdered By: Ayanna Vicente on 09-30-2022 Free T4 [Mass/Vol] 0.86 ng/dL 0.61-1.12 [facility] Triglyceride [Mass/volume] i n Serum or PlasmaOrdered By: Ayanna Vicente on 09-30-2022 Triglyceride [Mass/Vol] 216 mg/dL 0-149 [facility] Comment on above: TRIG ATP III CLASSIF ICATIONTRIG less than 150 mg/dL NormalTRIG 150-199 mg/dL Borderline highTRIG 200-500 mg/dL High TRIG greater than 500 mg/dL Very highStandard traceable to the Center for Disease Conrtrol and Prevention (CDC) test method. Triiodothyronine (T3) Free [ Mass/volume] in Serum or PlasmaOrdered By: Ayanna Vicente on 09-30-2022 Free T3 [Mass/Vol] 3.13 pg/mL 2.50-3.90 [facility] Urea nitrogen [Mass/volume] in Serum or PlasmaOrdered By: Ayanna Vicente on 09-30-2022 Urea nitrogen [Mass/Vol] 33 mg/dL 7-25 [facility] WBC Auto (Bld) [#/Vol]Ordere d By: Ayanna Vicente on 09-30-2022 WBC (Bld) [#/Vol] 15.2 10*3/uL 3.8-11.6 [facility] No Panel InformationOrdered By: Ayanna Vicente on 04-23-2022 25-Hydroxy Vitamin D Total 49.9 ng/mL 30-100 [facility] Comment on above: VITAMIN D STATUS 25( OH)VITAMIN D RANGE (ng/mL) Deficient <20 Insufficient 20 to <30Sufficient 30 to 100Reference: Nile MF,Joon HOPKINS, Chon ROD, et al. Evaluation,treatment, and prevention of vitamin D deficiency; an Endocrine Society clinical practice guideline. JCEM. 2010; 96(7):1911-30. LD LACTATE DEHYDROon 022 LDH [Catalytic activity/Vol] 202 U/L 135 - 214 U/L [facility] Albumin [Mass/volume] in Ser um or PlasmaOrdered By: Ayanna Vicente on 04-01-2022 Albumin [Mass/Vol] 3.5 g/dL 3.2-5.5 [facility] Basophils Auto (Bld) [#/Vol] Ordered By: Ayanna Vicente on 04-01-2022 Basophils (Bld) [#/Vol] N/A [facility] Basophils/100 WBC Auto (Bld) Ordered By: Ayanna Vicente on 04-01-2022 Basophils/100 WBC (Bld) N/A [facility] Blood anisocytosis detection Ordered By: Ayanna Vicente on 04-01-2022 Anisocytosis Ql (Bld) Slight [facility] Blood hemoglobin measurement (mass/volume)Ordered By: Ayanna Vicente on 04-01-2022 Hemoglobin (Bld) [Mass/Vol] 12.3 g/dL 11.8-15.4 [facility] Blood leukocytes automated c ount (number/volume)Ordered By: Ayanna Vicente on 04-01-2022 WBC (Bld) [#/Vol] 12.0 10*3/uL 4.5-11.0 [facility] Cerebrospinal fluid unidenti fied cells/100 leukocytesOrdered By: Ayanna Vicente on 04-01-2022 Unidentified cells/100 WBC (CSF) 2 % 0-0 [facility] Comment on above: PRO LYMPHOCYTE Cholesterol [Mass/volume] in Serum or PlasmaOrdered By: Ayanna Vicente on 04-01-2022 Cholesterol [Mass/Vol] 102 mg/dL 140-200 [facility] Comment on above: Chol less than 200 m g/dl low risk Chol 201-239 mg/dl borderline risk Chol 240 mg/dl and greater high risk Chol less than 200 m g/dl low riskChol 201-239 mg/dl borderline riskChol 240 mg/dl and greater high risk Cholesterol in LDL Calc [Mas s/Vol]Ordered By: Ayanna Vicente on 04-01-2022 Cholesterol in LDL [Mass/Vol] 27 mg/dL 0-100 [facility] Comment on above: LDL ATP III [...] in VLDL [Mass/Vol] 25 mg/dL [facility] Creatinine and Glomerular fi ltration rate.predicted panel (S/P/Bld)Ordered By: Ayanna Vicente on 04-01-2022 Creatinine [Mass/Vol] 0.84 mg/dL 0.44-1.03 [facility] Eosinophils Auto (Bld) [#/Vo l]Ordered By: Ayanna Vicente on 04-01-2022 Eosinophils (Bld) [#/Vol] N/A [facility] Eosinophils/100 WBC Auto (Bl d)Ordered By: Ayanna Vicente on 04-01-2022 Eosinophils/100 WBC (Bld) N/A [facility] Erythrocyte distribution wid th Auto (RBC) [Ratio]Ordered By: Ayanna Vicente on 04-01-2022 Erythrocyte distribution width (RBC) [Ratio] 17.0 % 11.9-15.3 [facility] Estimated glomerular filtrat ion rate (GFR) non- AmericanOrdered By: Ayanna Vicente on 04-01-2022 GFR/1.73 sq M.predicted among non-blacks MDRD (S/P/Bld) [Vol rate/Area] > 60 mL/Min [facility] Globulin Calc (S) [Mass/Vol] Ordered By: Ayanna Vicente on 04-01-2022 Globulin (S) [Mass/Vol] 2.9 g/dL [facility] Glucose mean value [Mass/vol ume] in Blood Estimated from glycated hemoglobinOrdered By: Ayanna Vicente on 04-01-2022 Average glucose Estimated from glycated hemoglobin (Bld) [Mass/Vol] 255 mg/dL [facility] Hematocrit Auto (Bld) [Volum e fraction]Ordered By: Ayanna Vicente on 04-01-2022 Hematocrit (Bld) [Volume fraction] 37.9 % 34.0-46.4 [facility] Hemoglobin A1c percentageOrd ered By: Ayanna Vicente on 04-01-2022 HbA1c (Bld) [Mass fraction] 10.5 % 4.3-5.6 [facility] Comment on above: Increased risk for d iabetes: 5.7 - 6.4 diabetes: >6.4 glycemic control for adults with diabetes: <7.0 Increased risk for d iabetes: 5.7 - 6.4diabetes: >6.4glycemic control for adults with diabetes: <7.0 Laboratory - Hematology and Cell countsOrdered By: Ayanna Vicente on 04-01-2022 Nucleated RBC/100 WBC (Bld) [Ratio] 0.2 % 0-0.5 [facility] Lymphocytes Auto (Bld) [#/Vo l]Ordered By: Ayanna Vicente on 04-01-2022 Lymphocytes (Bld) [#/Vol] N/A [facility] Lymphocytes/100 WBC Auto (Bl d)Ordered By: Ayanna Vicenet on 04-01-2022 Lymphocytes/100 WBC (Bld) N/A [facility] Lymphocytes/100 WBC (Bld) 60 % 18-42 [facility] Lymphocytes/100 WBC Manual c nt (Bld)Ordered By: Ayanna Vicente on 04-01-2022 Lymphocytes/100 WBC (Bld) 3 % 0-12 [facility] MCH Auto (RBC) [Entitic mass ]Ordered By: Ayanna Vicente on 04-01-2022 MCH (RBC) [Entitic mass] 28.3 pg 24.7-34.3 [facility] MCHC Auto (RBC) [Mass/Vol]Or dered By: Ayanna Vicente on 04-01-2022 MCHC (RBC) [Mass/Vol] 32.4 g/dL 32.0-35.[address] [facility] MCV Auto (RBC) [Entitic vol] Ordered By: Ayanna Vicente on 04-01-2022 MCV (RBC) [Entitic vol] 87.6 fL 80-100 [facility] Manual blood monocytes/100 l eukocytesOrdered By: Ayanna Vicente on 04-01-2022 Monocytes/100 WBC (Bld) 3 % 1-3 [facility] Monocytes Auto (Bld) [#/Vol] Ordered By: Ayanna Vicente on 04-01-2022 Monocytes (Bld) [#/Vol] N/A [facility] Monocytes/100 WBC Auto (Bld) Ordered By: Ayanna Vicente on 04-01-2022 Monocytes/100 WBC (Bld) N/A [facility] Neutrophils Auto (Bld) [#/Vo l]Ordered By: Ayanna Vicente on 04-01-2022 Neutrophils (Bld) [#/Vol] N/A [facility] Neutrophils/100 WBC Auto (Bl d)Ordered By: Ayanna Vicente on 04-01-2022 Neutrophils/100 WBC (Bld) N/A [facility] No Panel InformationOrdered By: Ayanna Vicente on 04-01-2022 Estimated GFR () > 60 mL/Min [facility] Comment on above: GFR estimated refere nce range: According to KDOQI guidelines, <60 ml/min/1.73m2 is sufficient to diagnose a patient with chronic kidney disease. Pharmacy Creatinine Clearance (Chem N/A [facility] Platelet Estimate Normal Normal [facility] Platelet Morphology Comment Normal Normal [facility] Smudge Cells Few [facility] Platelet mean volume Auto (B ld) [Entitic vol]Ordered By: Ayanna Vicente on 04-01-2022 Platelet mean volume (Bld) [Entitic vol] 9.3 fL 6.3-10.7 [facility] Platelets Auto (Bld) [#/Vol] Ordered By: Ayanna Vicente on 04-01-2022 Platelets (Bld) [#/Vol] 224 10*3/uL 150-450 [facility] Protein [Mass/volume] in Ser um or PlasmaOrdered By: Ayanna Vicente on 04-01-2022 Protein [Mass/Vol] 6.4 g/dL 6.1-7.9 [facility] RBC Auto (Bld) [#/Vol]Ordere d By: Ayanna Vicente on 04-01-2022 RBC (Bld) [#/Vol] 4.33 10*6/uL 3.60-5.00 [facility] RBC morphologyOrdered By: Vasile Vicente on 04-01-2022 RBC morphology finding Nom (Bld) N/A [facility] Segmented neutrophils/100 WB C Manual cnt (Bld)Ordered By: Ayanna Vicente on 04-01-2022 Segmented neutrophils/100 WBC (Bld) 29 % 50-70 [facility] Serum or plasma alanine roman otransferase measurement without P-5'-P (enzymatic activiOrdered By: Ayanna Vicente on 04-01-2022 ALT No additional P-5'-P [Catalytic activity/Vol] 24 U/L 10-60 [facility] Serum or plasma albumin/glob ulin mass ratioOrdered By: Ayanna Vicente on 04-01-2022 Albumin/Globulin [Mass ratio] 1.2 {ratio} [facility] Serum or plasma alkaline mayelin sphatase measurement (enzymatic activity/volume)Ordered By: Ayanna Vicente on 04-01-2022 ALP [Catalytic activity/Vol] 75 U/L 32-92 [facility] Serum or plasma anion gap de terminationOrdered By: Ayanna Vicente on 04-01-2022 Anion gap [Moles/Vol] 15.8 mmol/L 6.0-15.0 [facility] Serum or plasma aspartate am inotransferase measurement (enzymatic activity/volume)Ordered By: Ayanna Vicente on 04-01-2022 AST [Catalytic activity/Vol] 26 U/L 10-42 [facility] Serum or plasma calcium massimo urement (mass/volume)Ordered By: Ayanna Vicente on 04-01-2022 Calcium [Mass/Vol] 9.3 mg/dL 8.2-10.2 [facility] Serum or plasma chloride chris surement (moles/volume)Ordered By: Ayanna Vicente on 04-01-2022 Chloride [Moles/Vol] 103 mmol/L 95-114 [facility] Serum or plasma glucose massimo urement (mass/volume)Ordered By: Ayanna Vicente on 04-01-2022 Glucose [Mass/Vol] 163 mg/dL 70-100 [facility] Comment on above: ADA recommended refe [...] HDL [Mass/Vol] 50 mg/dL 35-85 [facility] Comment on above: HDL CHOL ATP-III CLA SSIFICATION Cardiovascular Risk HDL > or equal to 60 mg/dL LOW HDL < 40 mg/dL HIGH HDL CHOL ATP-III CLA SSIFICATION Cardiovascular RiskHDL > or equal to 60 mg/dL LOWHDL < 40 mg/dL HIGH Serum or plasma potassium me asurement (moles/volume)Ordered By: Ayanna Vicente on 04-01-2022 Potassium [Moles/Vol] 4.4 mmol/L 3.5-5.1 [facility] Serum or plasma sodium measu rement (moles/volume)Ordered By: Ayanna Vicente on 04-01-2022 Sodium [Moles/Vol] 141 mmol/L 136-146 [facility] Serum or plasma total biliru bin measurement (mass/volume)Ordered By: Ayanna Vicente on 04-01-2022 Bilirubin [Mass/Vol] 0.3 mg/dL 0.3-1.2 [facility] Serum or plasma total carbon dioxide measurement (moles/volume)Ordered By: Ayanna Vicente on 04-01-2022 CO2 [Moles/Vol] 26.6 mmol/L 22.0-30.0 [facility] Serum or plasma total choles terol/high density lipoprotein (HDL) cholesterol mass ratOrdered By: Aynana Vicente on 04-01-2022 Cholesterol.total/Choles terol in HDL [Mass ratio] 2.0 {ratio} <5.0 [facility] Serum or plasma urea nitroge n measurement (mass/volume)Ordered By: Ayanna Vicente on 04-01-2022 Urea nitrogen [Mass/Vol] 12 mg/dL 9-23 [facility] TSH DL <= 0.005 mIU/L QnOrde red By: Ayanna Vicente on 04-01-2022 TSH Qn 1.11 m[IU]/L 0.45-5.33 [facility] Thyroxine (T4) free [Mass/vo lume] in Serum or PlasmaOrdered By: Ayanna Vicente on 04-01-2022 Free T4 [Mass/Vol] 1.02 ng/dL 0.61-1.12 [facility] Triglyceride [Mass/volume] i n Serum or PlasmaOrdered By: Ayanna Vicente on 04-01-2022 Triglyceride [Mass/Vol] 125 mg/dL 35-149 [facility] Comment on above: TRIG ATP III [...] 04-01-2022 Free T3 [Mass/Vol] 2.81 pg/mL 2.50-3.90 [facility] Glucose Glucometer (BldC) [M ass/Vol]Ordered By: Galo Max on 01-26-2022 Glucose [Mass/Vol] 117 mg/dL [facility] Comment on above: Random Glucose Refer ence Range is dependent on time and content of last meal. Glucose of more than 200 mg/dL in a nonstressed, ambulatory subject supports the diagnosis of Diabetes Mellitus. Basophils Auto (Bld) [#/Vol] Ordered By: Ashley Ramos on 01-25-2022 Basophils (Bld) [#/Vol] 0.0 10*3/uL 0.0-0.2 [facility] Basophils/100 WBC Auto (Bld) Ordered By: Ashley Ramos on 01-25-2022 Basophils/100 WBC (Bld) 0.3 % . [facility] Blood hemoglobin measurement (mass/volume)Ordered By: Ashley Ramos on 01-25-2022 Hemoglobin (Bld) [Mass/Vol] 11.0 g/dL 11.8-15.4 [facility] Blood leukocytes automated c ount (number/volume)Ordered By: Ashley Ramos on 01-25-2022 WBC (Bld) [#/Vol] 9.5 10*3/uL 4.5-11.0 [facility] Creatinine and Glomerular fi ltration rate.predicted panel (S/P/Bld)Ordered By: Ashley Ramos on 01-25-2022 Creatinine [Mass/Vol] 0.78 mg/dL 0.44-1.03 [facility] Eosinophils Auto (Bld) [#/Vo l]Ordered By: Ashley Ramos on 01-25-2022 Eosinophils (Bld) [#/Vol] 0.3 10*3/uL 0.0-0.45 [facility] Eosinophils/100 WBC Auto (Bl d)Ordered By: Ashley Ramos on 01-25-2022 Eosinophils/100 WBC (Bld) 3.6 % . [facility] Erythrocyte distribution wid th Auto (RBC) [Ratio]Ordered By: Ashley Ramos on 01-25-2022 Erythrocyte distribution width (RBC) [Ratio] 15.4 % 11.9-15.3 [facility] Estimated glomerular filtrat ion rate (GFR) non- AmericanOrdered By: Ashley Ramos on 01-25-2022 GFR/1.73 sq M.predicted among non-blacks MDRD (S/P/Bld) [Vol rate/Area] > 60 mL/Min [facility] Hematocrit Auto (Bld) [Volum e fraction]Ordered By: Ashley Ramos on 01-25-2022 Hematocrit (Bld) [Volume fraction] 33.2 % 34.0-46.4 [facility] Laboratory - Hematology and Cell countsOrdered By: Ashley Ramos on 01-25-2022 Nucleated RBC/100 WBC (Bld) [Ratio] 0.2 % 0-0.5 [facility] Lymphocytes Auto (Bld) [#/Vo l]Ordered By: Ahsley Ramos on 01-25-2022 Lymphocytes (Bld) [#/Vol] 6.4 10*3/uL 1.00-4.8 [facility] Lymphocytes/100 WBC Auto (Bl d)Ordered By: Ashley Ramos on 01-25-2022 Lymphocytes/100 WBC (Bld) 67.6 % . [facility] MCH Auto (RBC) [Entitic mass ]Ordered By: Ashley Ramos on 01-25-2022 MCH (RBC) [Entitic mass] 28.7 pg 24.7-34.3 [facility] MCHC Auto (RBC) [Mass/Vol]Or dered By: Ashley Ramos on 01-25-2022 MCHC (RBC) [Mass/Vol] 33.3 g/dL 32.0-35.0 [facility] MCV Auto (RBC) [Entitic vol] Ordered By: Ashley Ramos on 01-25-2022 MCV (RBC) [Entitic vol] 86.3 fL 80-100 [facility] Monocytes Auto (Bld) [#/Vol] Ordered By: Ashley Ramos on 01-25-2022 Monocytes (Bld) [#/Vol] 0.7 10*3/uL 0.0-0.8 [facility] Monocytes/100 WBC Auto (Bld) Ordered By: Ashley Ramos on 01-25-2022 Monocytes/100 WBC (Bld) 7.4 % . [facility] Neutrophils Auto (Bld) [#/Vo l]Ordered By: Ashley Ramos on 01-25-2022 Neutrophils (Bld) [#/Vol] 2.0 10*3/uL 1.8-7.7 [facility] Neutrophils/100 WBC Auto (Bl d)Ordered By: Ashley Ramos on 01-25-2022 Neutrophils/100 WBC (Bld) 21.1 % . [facility] No Panel InformationOrdered By: Ashley Ramos on 01-25-2022 Estimated GFR () > 60 mL/Min [facility] Comment on above: GFR estimated refere nce range: According to KDOQI guidelines, <60 ml/min/1.73m2 is sufficient to diagnose a patient with chronic kidney disease. Pharmacy Creatinine Clearance (Chem 76.46 [facility] Platelet Estimate Normal Normal [facility] Platelet Morphology Comment Normal Normal [facility] Smudge Cells Few [facility] Platelet mean volume Auto (B ld) [Entitic vol]Ordered By: Ashley Ramos on 01-25-2022 Platelet mean volume (Bld) [Entitic vol] 8.6 fL 6.3-10.7 [facility] Platelets Auto (Bld) [#/Vol] Ordered By: Ashley Ramos on 01-25-2022 Platelets (Bld) [#/Vol] 240 10*3/uL 150-450 [facility] RBC Auto (Bld) [#/Vol]Ordere d By: Ashley Ramos on 01-25-2022 RBC (Bld) [#/Vol] 3.84 10*6/uL 3.60-5.00 [facility] RBC morphologyOrdered By: Kendall Ramos on 01-25-2022 RBC morphology finding Nom (Bld) Normal [facility] Serum or plasma calcium massimo urement (mass/volume)Ordered By: Ashley Ramos on 01-25-2022 Calcium [Mass/Vol] 8.7 mg/dL 8.2-10.2 [facility] Serum or plasma chloride chris surement (moles/volume)Ordered By: Ashley Ramos on 01-25-2022 Chloride [Moles/Vol] 101 mmol/L 95-114 [facility] Serum or plasma glucose massimo urement (mass/volume)Ordered By: Ashley Ramos on 01-25-2022 Glucose [Mass/Vol] 133 mg/dL 70-100 [facility] Comment on above: ADA recommended refe [...] on 01-25-2022 Potassium [Moles/Vol] 4.0 mmol/L 3.5-5.1 [facility] Serum or plasma sodium measu rement (moles/volume)Ordered By: Ashley Ramos on 01-25-2022 Sodium [Moles/Vol] 141 mmol/L 136-146 [facility] Serum or plasma total carbon dioxide measurement (moles/volume)Ordered By: Ashley Ramos on 01-25-2022 CO2 [Moles/Vol] 30.7 mmol/L 22.0-30.0 [facility] Serum or plasma urea nitroge n measurement (mass/volume)Ordered By: Ashley Ramos on 01-25-2022 Urea nitrogen [Mass/Vol] 14 mg/dL 9-23 [facility] No Panel InformationOrdered By: Galo Max on 01-24-2022 Bedside Glucose Comment Glu2: cleaned meter [facility] Bacterial blood cultureOrder ed By: James Redding on 01-18-2022 Bacteria identified Cx Nom (Bld) NO GROWTH 5 DAYS [facility] Albumin [Mass/volume] in Ser um or PlasmaOrdered By: Galo Max on 01-16-2022 Albumin [Mass/Vol] 3.1 g/dL 3.2-5.5 [facility] Blood acanthocytes detection by light microscopyOrdered By: Galo Max on 01-16-2022 Acanthocytes LM Ql (Bld) Rare [facility] Globulin Calc (S) [Mass/Vol] Ordered By: Gaol Max on 01-16-2022 Globulin (S) [Mass/Vol] 3.0 g/dL [facility] No Panel InformationOrdered By: Galo Max on 01-16-2022 CBC Comment See comment [facility] Comment on above: Slide referred to joshua thologist for review Protein [Mass/volume] in Ser um or PlasmaOrdered By: Galo Max on 01-16-2022 Protein [Mass/Vol] 6.1 g/dL 6.1-7.9 [facility] Serum or plasma alanine roman otransferase measurement without P-5'-P (enzymatic activiOrdered By: Galo Max on 01-16-2022 ALT No additional P-5'-P [Catalytic activity/Vol] 24 U/L 10-60 [facility] Serum or plasma albumin/glob ulin mass ratioOrdered By: Galo Max on 01-16-2022 Albumin/Globulin [Mass ratio] 1.0 {ratio} [facility] Serum or plasma alkaline mayelin sphatase measurement (enzymatic activity/volume)Ordered By: Galo Max on 01-16-2022 ALP [Catalytic activity/Vol] 88 U/L 32-92 [facility] Serum or plasma aspartate am inotransferase measurement (enzymatic activity/volume)Ordered By: Galo Max on 01-16-2022 AST [Catalytic activity/Vol] 23 U/L 10-42 [facility] Serum or plasma prealbumin m easurement (mass/volume)Ordered By: Galo Max on 01-16-2022 Prealbumin [Mass/Vol] 22.1 mg/dL 18.0-38.0 [facility] Serum or plasma total biliru bin measurement (mass/volume)Ordered By: Galo Max on 01-16-2022 Bilirubin [Mass/Vol] 0.6 mg/dL 0.3-1.2 [facility] Creatinine and Glomerular fi ltration rate.predicted panel (S/P/Bld)Ordered By: Bertram Garrison on 01-15-2022 Creatinine [Mass/Vol] 0.80 mg/dL 0.44-1.03 [facility] Comment on above: Delta: 1.35 on 01/14 Estimated glomerular filtrat ion rate (GFR) non- AmericanOrdered By: Bertram Garrison on 01-15-2022 GFR/1.73 sq M.predicted among non-blacks MDRD (S/P/Bld) [Vol rate/Area] > 60 mL/Min [facility] Glucose Glucometer (BldC) [M ass/Vol]Ordered By: Bertram Garrison on 01-15-2022 Glucose [Mass/Vol] 226 mg/dL [facility] Comment on above: Random Glucose Refer ence Range is dependent on time and content of last meal. Glucose of more than 200 mg/dL in a nonstressed, ambulatory subject supports the diagnosis of Diabetes Mellitus. No Panel InformationOrdered By: Bertram Garrison on 01-15-2022 Bedside Glucose Comment Glu2: cleaned meter [facility] Estimated GFR () > 60 mL/Min [facility] Comment on above: GFR estimated refere nce range: According to KDOQI guidelines, <60 ml/min/1.73m2 is sufficient to diagnose a patient with chronic kidney disease. Pharmacy Creatinine Clearance (Chem 75.85 [facility] Serum or plasma calcium massimo urement (mass/volume)Ordered By: Bertram Garrison on 01-15-2022 Calcium [Mass/Vol] 9.2 mg/dL 8.2-10.2 [facility] Serum or plasma chloride chris surement (moles/volume)Ordered By: Bertram Garrison on 01-15-2022 Chloride [Moles/Vol] 99 mmol/L 95-114 [facility] Serum or plasma glucose massimo urement (mass/volume)Ordered By: Bertram Garrison on 01-15-2022 Glucose [Mass/Vol] 293 mg/dL 70-100 [facility] Comment on above: ADA recommended refe rence range Random Glucose Reference Range is dependent on time and content of last meal. Glucose of more than 200 mg/dL in a nonstressed, ambulatory subject supports the diagnosis of Diabetes Mellitus. Serum or plasma potassium me asurement (moles/volume)Ordered By: Bertram Garrison on 01-15-2022 Potassium [Moles/Vol] 4.3 mmol/L 3.5-5.1 [facility] Serum or plasma sodium measu rement (moles/volume)Ordered By: Bertram Garrison on 01-15-2022 Sodium [Moles/Vol] 136 mmol/L 136-146 [facility] Serum or plasma total carbon dioxide measurement (moles/volume)Ordered By: Bertram Garrison on 01-15-2022 CO2 [Moles/Vol] 29.1 mmol/L 22.0-30.0 [facility] Serum or plasma urea nitroge n measurement (mass/volume)Ordered By: Bertram Garrison on 01-15-2022 Urea nitrogen [Mass/Vol] 23 mg/dL 9-23 [facility] Urine culture routineOrdered By: James Redding on 01-15-2022 Bacteria identified Cx Nom (U) Enterococcus faecalis [facility] Basophils Auto (Bld) [#/Vol] Ordered By: Bertram Garrison on 01-14-2022 Basophils (Bld) [#/Vol] 0.1 10*3/uL 0.0-0.2 [facility] Basophils/100 WBC Auto (Bld) Ordered By: Bertram Garrison on 01-14-2022 Basophils/100 WBC (Bld) 0.6 % . [facility] Blood acanthocytes detection by light microscopyOrdered By: Bertram Garrison on 01-14-2022 Acanthocytes LM Ql (Bld) Few [facility] Blood hemoglobin measurement (mass/volume)Ordered By: Bertram Garrison on 01-14-2022 Hemoglobin (Bld) [Mass/Vol] 11.7 g/dL 11.8-15.4 [facility] Blood leukocytes automated c ount (number/volume)Ordered By: Bertram Garrison on 01-14-2022 WBC (Bld) [#/Vol] 11.5 10*3/uL 4.5-11.0 [facility] Eosinophils Auto (Bld) [#/Vo l]Ordered By: Bertram Garrison on 01-14-2022 Eosinophils (Bld) [#/Vol] 0.4 10*3/uL 0.0-0.45 [facility] Eosinophils/100 WBC Auto (Bl d)Ordered By: Bertram Garrison on 01-14-2022 Eosinophils/100 WBC (Bld) 3.3 % . [facility] Erythrocyte distribution wid th Auto (RBC) [Ratio]Ordered By: Bertram Garrison on 01-14-2022 Erythrocyte distribution width (RBC) [Ratio] 14.4 % 11.9-15.3 [facility] Hematocrit Auto (Bld) [Volum e fraction]Ordered By: Bertram Garirson on 01-14-2022 Hematocrit (Bld) [Volume fraction] 35.4 % 34.0-46.4 [facility] Laboratory - Hematology and Cell countsOrdered By: Bertram Garrison on 01-14-2022 Nucleated RBC/100 WBC (Bld) [Ratio] 0.3 % 0-0.5 [facility] Lymphocytes Auto (Bld) [#/Vo l]Ordered By: Bertram Garrison on 01-14-2022 Lymphocytes (Bld) [#/Vol] 7.2 10*3/uL 1.00-4.8 [facility] Lymphocytes/100 WBC Auto (Bl d)Ordered By: Bertram Garrison on 01-14-2022 Lymphocytes/100 WBC (Bld) 62.9 % . [facility] MCH Auto (RBC) [Entitic mass ]Ordered By: Bertram Garrison on 01-14-2022 MCH (RBC) [Entitic mass] 28.4 pg 24.7-34.3 [facility] MCHC Auto (RBC) [Mass/Vol]Or dered By: Bertram Garrison on 01-14-2022 MCHC (RBC) [Mass/Vol] 32.9 g/dL 32.0-35.0 [facility] MCV Auto (RBC) [Entitic vol] Ordered By: Bertram aGrrison on 01-14-2022 MCV (RBC) [Entitic vol] 86.1 fL 80-100 [facility] Monocytes Auto (Bld) [#/Vol] Ordered By: Bertram Garrison on 01-14-2022 Monocytes (Bld) [#/Vol] 0.6 10*3/uL 0.0-0.8 [facility] Monocytes/100 WBC Auto (Bld) Ordered By: Bertram Garrison on 01-14-2022 Monocytes/100 WBC (Bld) 5.0 % . [facility] Neutrophils Auto (Bld) [#/Vo l]Ordered By: Bertram Garrison on 01-14-2022 Neutrophils (Bld) [#/Vol] 3.2 10*3/uL 1.8-7.7 [facility] Neutrophils/100 WBC Auto (Bl d)Ordered By: Bertram Garrison on 01-14-2022 Neutrophils/100 WBC (Bld) 28.2 % . [facility] No Panel InformationOrdered By: Bertram Garrison on 01-14-2022 Platelet Estimate Normal Normal [facility] Platelet Morphology Comment Normal Normal [facility] Platelet mean volume Auto (B ld) [Entitic vol]Ordered By: Bertram Garrison on 01-14-2022 Platelet mean volume (Bld) [Entitic vol] 9.8 fL 6.3-10.7 [facility] Platelets Auto (Bld) [#/Vol] Ordered By: Bertram Garrison on 01-14-2022 Platelets (Bld) [#/Vol] 277 10*3/uL 150-450 [facility] RBC Auto (Bld) [#/Vol]Ordere d By: Bertram Garrison on 01-14-2022 RBC (Bld) [#/Vol] 4.11 10*6/uL 3.60-5.00 [facility] RBC morphologyOrdered By: New Garrison on 01-14-2022 RBC morphology finding Nom (Bld) Normal [facility] Albumin [Mass/volume] in Ser um or PlasmaOrdered By: James Redding on 01-13-2022 Albumin [Mass/Vol] 3.1 g/dL 3.2-5.5 [facility] Automated erythrocytes count in urine sediment (number/area)Ordered By: James Redding on 01-13-2022 RBC Auto (Urine sed) [#/Area] 0-1 [HPF] 0-4 [facility] Automated leukocytes count i n urine sediment (number/area)Ordered By: James Redding on 01-13-2022 WBC Auto (Urine sed) [#/Area] 50-100 [HPF] 0-4 [facility] Bilirubin Test strip Ql (U)O rdered By: James Redding on 01-13-2022 Bilirubin Ql (U) 1+ Negative [facility] COVID-19 Positive/NegativeOr dered By: James Redding on 01-13-2022 SARS-CoV-2 (COVID-19) N gene FARRAH+probe Ql (Resp) Negative Negative [facility] Comment on above: Testing for SARS-CoV -2 by RT-PCR This test was developed and its performance characteristics determined by [employer] ([place] and validated at the [facility]. This test has not been FDA [...] IA.rapid Ql (Resp) Negative Negative [facility] Comment on above: This is a duplicate Brianna SARS Antigen (DUSTIN) result to be used for statistical tracking purpose only. Color Auto (U)Ordered By: Anni Redding on 01-13-2022 Color (U) Dark yellow Yellow [facility] Globulin Calc (S) [Mass/Vol] Ordered By: James Redding on 01-13-2022 Globulin (S) [Mass/Vol] 3.0 g/dL [facility] Ketones Auto test strip (U) [Mass/Vol]Ordered By: James Redding on 01-13-2022 Ketones (U) [Mass/Vol] Trace Negative [facility] Laboratory - UrinalysisOrder ed By: James Redding on 01-13-2022 Hyaline casts LM Ql (Urine sed) 9-19 [LPF] 0-8 [facility] Nitrite Test strip Ql (U)Ord ered By: James Redding on 01-13-2022 Nitrite Ql (U) Negative Negative [facility] No Panel InformationOrdered By: James Redding on 01-13-2022 Smudge Cells Few [facility] SARS Antigen (LFIA) [facility] Protein Auto test strip (U) [Mass/Vol]Ordered By: James Redding on 01-13-2022 Protein (U) [Mass/Vol] 30 mg/dL Negative [facility] Protein [Mass/volume] in Ser um or PlasmaOrdered By: James Redding on 01-13-2022 Protein [Mass/Vol] 6.1 g/dL 6.1-7.9 [facility] Serum or plasma alanine roman otransferase measurement without P-5'-P (enzymatic activiOrdered By: James Redding on 01-13-2022 ALT No additional P-5'-P [Catalytic activity/Vol] 27 U/L 10-60 [facility] Serum or plasma albumin/glob ulin mass ratioOrdered By: James Redding on 01-13-2022 Albumin/Globulin [Mass ratio] 1.0 {ratio} [facility] Serum or plasma alkaline mayelin sphatase measurement (enzymatic activity/volume)Ordered By: James Redding on 01-13-2022 ALP [Catalytic activity/Vol] 95 U/L 32-92 [facility] Serum or plasma aspartate am inotransferase measurement (enzymatic activity/volume)Ordered By: James Redding on 01-13-2022 AST [Catalytic activity/Vol] 27 U/L 10-42 [facility] Serum or plasma total biliru bin measurement (mass/volume)Ordered By: James Redding on 01-13-2022 Bilirubin [Mass/Vol] 0.6 mg/dL 0.3-1.2 [facility] Specific gravity Auto test s trip (U) [Rel density]Ordered By: James Redding on 01-13-2022 Specific gravity (U) [Rel density] 1.029 1.001-1.030 [facility] Squamous epithelial cells de tection in urine sediment by light microscopyOrdered By: James Redding on 01-13-2022 Epithelial cells.squamous LM Ql (Urine sed) 1-2 [HPF] 0-1 [facility] Troponin I.cardiac [Mass/vol ume] in Serum or Plasma by High sensitivity methodOrdered By: James Redding on 01-13-2022 Troponin I.cardiac High sensitivity method [Mass/Vol] 4 pg/mL 0-15 [facility] Urine bacteria detection by automated methodOrdered By: James Redding on 01-13-2022 Bacteria Auto Ql (U) 2+ None Seen [facility] Urine clarity by refractomet ry automatedOrdered By: James Redding on 01-13-2022 Clarity Refractometry automated (U) Cloudy Clear [facility] Urine glucose measurement by automated test strip (mass/volume)Ordered By: James Redding on 01-13-2022 Glucose Auto test strip (U) [Mass/Vol] Normal mg/dL Normal [facility] Urine hemoglobin detection b y automated test stripOrdered By: James Redding on 01-13-2022 Hemoglobin Auto test strip Ql (U) Negative Negative [facility] Urine leukocyte esterase det ection by automated test stripOrdered By: James Redding on 01-13-2022 Leukocyte esterase Auto test strip Ql (U) 3+ Negative [facility] Urobilinogen Auto test strip (U) [Mass/Vol]Ordered By: James Redding on 01-13-2022 Urobilinogen (U) [Mass/Vol] Normal mg/dL Normal [facility] pH Auto test strip (U)Ordere d By: James Redding on 01-13-2022 pH (U) 5.0 [pH] 5.0-9.0 [facility] CARDIAC STRESS/REST INJE CTIONon 01-04-2021 [facility] CARDIAC STRESS/REST INJECTION Patient Name: KATHY WASHBURN STUDY: MYOCARDIAL PERFUSION STRESS TEST WITH LEXISCAN Performing facility: [facility], [address] [place] [address], [address] Provider: Osmel Fernandes MD, FACC PCP: Dr. Lyndon Vicente Supervising provider: Osmel Fernandes MD, FACC INDICATION: Chest Pain; HTN Hyperlipidemia Diabetes Dyspnea HISTORY: Gender: F; Age: 80 y/o ; Height: 175.26 cm; Weight: [id number] kg. High Cholesterol; Diabetes; HTN; Chest Pain; SOB; Quit smoking Unknown years ago. COMPARISON: Previous nuclear testing completed at [facility]. ACCESSION NUMBER(S): [id number]; [id number]; [id number] ORDERING CLINICIAN: MONET FERNANDES TECHNIQUE: ONE DAY [...] comparison. Electronically signed by: SARAH HODGES MD [facility] Vital Signs Date Time Vital Sign Value Performing Clinician Elli panchal 02-15-2025 14:44-0400 Body height 175.26 cm Ayanna Ogbabi DO Work Phone: [facility] 02-15-2025 14:44-0400 Body mass index (BMI) [Ratio] 34 kg/m2 Ayanna Sakina DO Work Phone: [facility] 02-15-2025 14:44-0400 Body temperature 98.3 [degF] Ayanna Vicente DO Work Phone: [facility] 02-15-2025 14:44-0400 Body weight 104.32 kg Ayanna Sakina DO Work Phone: [facility] 02-15-2025 14:44-0400 Diastolic blood pressure 82 mm[Hg] Ayanna Ogabbi DO Work Phone: [facility] 02-15-2025 14:44-0400 Heart rate 79 /min Ayanna Sakina DO Work Phone: [facility] 02-15-2025 14:44-0400 SaO2% (BldA) [Mass fraction] 92 % Ayanna Sakina DO Work Phone: [facility] 02-15-2025 14:44-0400 Systolic blood pressure 120 mm[Hg] Ayanna Vicente DO Work Phone: [facility] 01-27-2025 13:56-0400 Body height 175.26 cm Ayanna Vicente DO Work Phone: [facility] 01-27-2025 13:56-0400 Body mass index (BMI) [Ratio] 33.5 kg/m2 Ayanna Vicente DO Work Phone: [facility] 01-27-2025 13:56-0400 Body weight 103.02 kg Ayanna Vicente DO Work Phone: [facility] 01-27-2025 13:56-0400 Diastolic blood pressure 74 mm[Hg] Ayanna Vicente DO Work Phone: [facility] 01-27-2025 13:56-0400 Heart rate 59 /min Ayanna Vicente DO Work Phone: [facility] 01-27-2025 13:56-0400 Respiratory rate 16 /min Ayanna Vicente DO Work Phone: [facility] 01-27-2025 13:56-0400 SaO2% (BldA) [Mass fraction] 94 % Ayanna Vicente DO Work Phone: [facility] 01-27-2025 13:56-0400 Systolic blood pressure 122 mm[Hg] Ayanna Vicente DO Work Phone: [facility] 01-12-2025 13:23-0400 Body height 175.3 cm Moe Itzkowitz DO Work Phone: [facility] 01-12-2025 13:23-0400 Body mass index (BMI) [Ratio] 33.23 kg/m2 Moe Itzkowitz DO Work Phone: [facility] 01-12-2025 13:23-0400 Body weight 102.06 kg Moe Itzkowitz DO Work Phone: [facility] 01-12-2025 13:23-0400 Diastolic blood pressure 76 mm[Hg] Moe Itzkowitz DO Work Phone: [facility] 01-12-2025 13:23-0400 Systolic blood pressure 122 mm[Hg] Moe Betts DO Work Phone: [facility] 12-17-2024 10:27-0400 Body height 172.7 cm Zohaib German MD Work Phone: [facility] 12-17-2024 10:27-0400 Body mass index (BMI) [Ratio] 34.74 kg/m2 Zohaib German MD Work Phone: [facility] 12-17-2024 10:27-0400 Body temperature 64.99 [degF] Zohaib German MD Work Phone: [facility] 12-17-2024 10:27-0400 Body weight 103.6 kg Zohaib German MD Work Phone: [facility] 12-17-2024 10:27-0400 Diastolic blood pressure 71 mm[Hg] Zohaib German MD Work Phone: [facility] 12-17-2024 10:27-0400 Systolic blood pressure 112 mm[Hg] Zohaib German MD Work Phone: [facility] 12-16-2024 [id number] Body height 175.26 cm [facility] 12-16-2024 14:21-0400 Body mass index (BMI) [Ratio] 34.9 kg/m2 [facility] 12-16-2024 [id number] Body temperature 96.9 [degF] [facility] 12-16-2024 14:21-0400 Body weight 107.5 kg [facility] 12-16-2024 14:21-0400 Diastolic blood pressure 69 mm[Hg] [facility] 12-16-2024 14:21-0400 Heart rate 68 /min [facility] 12-16-2024 14:21-0400 Respiratory rate 18 /min [facility] 12-16-2024 14:21-0400 SaO2% (BldA) [Mass fraction] 92 % [facility] 12-16-2024 14:21-0400 Systolic blood pressure 104 mm[Hg] [facility] 11-10-2024 15:40-0400 Body height 175.26 cm [facility] 11-10-2024 15:40-0400 Body mass index (BMI) [Ratio] 32.9 kg/m2 [facility] 11-10-2024 15:40-0400 Body temperature 97.3 [degF] [facility] 11-10-2024 15:40-0400 Body weight 101.15 kg [facility] 11-10-2024 15:40-0400 Diastolic blood pressure 84 mm[Hg] [facility] 11-10-2024 15:40-0400 Heart rate 74 /min [facility] 11-10-2024 15:40-0400 SaO2% (BldA) [Mass fraction] 94 % [facility] 11-10-2024 15:40-0400 Systolic blood pressure 132 mm[Hg] [facility] 08-16-2024 09:06-0500 Diastolic blood pressure 58 mm[Hg] SUSAN RANDOLPH [facility] 08-16-2024 09:06-0500 Heart rate 69 /min SUSAN JAX [facility] 08-16-2024 09:06-0500 Respiratory rate 16 /min SUSAN JAX [facility] 08-16-2024 09:06-0500 Systolic blood pressure 92 mm[Hg] SUSAN JAX [facility] 08-09-2024 14:16-0500 Body mass index (BMI) [Ratio] 32.93 kg/m2 Esvin Dubon NP Work Phone: [facility] 08-09-2024 14:16-0500 Body weight 101.15 kg Esvin Dubon NP Work Phone: [facility] 08-09-2024 14:16-0500 Diastolic blood pressure 87 mm[Hg] Esvin Dubon CAGE CLERK Work Phone: [facility] 08-09-2024 14:16-0500 Heart rate 64 /min Esvin Dubon CAGE CLERK Work Phone: [facility] 08-09-2024 14:16-0500 Systolic blood pressure 125 mm[Hg] Esvin Dubon CAGE CLERK Work Phone: [facility] 06-23-2024 14:34-0500 Body height 175.3 cm Moe Itzkowitz DO Work Phone: [facility] 06-23-2024 14:34-0500 Body mass index (BMI) [Ratio] 33.67 kg/m2 Moe Itzkowitz DO Work Phone: [facility] 06-23-2024 14:34-0500 Body weight 103.42 kg Moe Itzkowitz DO Work Phone: [facility] 06-23-2024 14:34-0500 Diastolic blood pressure 85 mm[Hg] Moe Itzkowitz DO Work Phone: [facility] 06-23-2024 14:34-0500 Systolic blood pressure 135 mm[Hg] Moe Itzkowitz DO Work Phone: [facility] 06-17-2024 13:58-0500 Body mass index (BMI) [Ratio] 33.82 kg/m2 Christopher Aundrea DO Work Phone: [facility] 06-17-2024 13:58-0500 Body weight 103.87 kg Christopher Aundrea DO Work Phone: [facility] 06-17-2024 13:58-0500 Diastolic blood pressure 74 mm[Hg] Christopher Aundrea DO Work Phone: [facility] 06-17-2024 13:58-0500 Heart rate 84 /min Christopher Aundrea DO Work Phone: [facility] 06-17-2024 13:58-0500 SaO2% (BldA) [Mass fraction] 90 % Christopher Aundrea DO Work Phone: [facility] 06-17-2024 13:58-0500 Systolic blood pressure 138 mm[Hg] Bbaita Guillaume DO Work Phone: [facility] 05-26-2024 13:54-0500 Body height 172.7 cm Chad Freitas MD Work Phone: [facility] 05-26-2024 13:54-0500 Body mass index (BMI) [Ratio] 35.31 kg/m2 Chad Freitas MD Work Phone: [facility] 05-26-2024 13:54-0500 Body temperature 97 [degF] Chad Freitas MD Work Phone: [facility] 05-26-2024 13:54-0500 Body weight 105.33 kg Chad Freitas MD Work Phone: [facility] 05-26-2024 13:54-0500 Diastolic blood pressure 51 mm[Hg] Chad Freitas MD Work Phone: [facility] 05-26-2024 13:54-0500 Heart rate 70 /min Chad Freitas MD Work Phone: [facility] 05-26-2024 13:54-0500 Respiratory rate 16 /min Chad Freitas MD Work Phone: [facility] 05-26-2024 13:54-0500 SaO2% (BldA) [Mass fraction] 91 % Chad Freitas MD Work Phone: [facility] 05-26-2024 13:54-0500 Systolic blood pressure 92 mm[Hg] Chad Freitas MD Work Phone: [facility] 05-17-2024 13:00-0500 Body height 172.7 cm Zohaib German MD Work Phone: [facility] 05-17-2024 13:00-0500 Body mass index (BMI) [Ratio] 34.67 kg/m2 Zohaib German MD Work Phone: [facility] 05-17-2024 13:00-0500 Body weight 103.4 kg Zohaib German MD Work Phone: [facility] 05-17-2024 13:00-0500 Diastolic blood pressure 75 mm[Hg] Zohaib German MD Work Phone: [facility] 05-17-2024 13:00-0500 Heart rate 62 /min Zohaib German MD Work Phone: [facility] 05-17-2024 13:00-0500 Systolic blood pressure 117 mm[Hg] Zohaib German MD Work Phone: [facility] 05-12-2024 13:50-0400 Body height 180.34 cm DO Ayanna Vicente Work Phone: [facility] 05-12-2024 13:50-0400 Body mass index (BMI) [Ratio] 32.2 kg/m2 DO Ayanna Vicente Work Phone: [facility] 05-12-2024 13:50-0400 Body weight 104.77 kg DO Ayanna Vicente Work Phone: [facility] 05-12-2024 13:50-0400 Diastolic blood pressure 57 mm[Hg] DO Ayanna Vicente Work Phone: [facility] 05-12-2024 13:50-0400 Heart rate 86 /min DO Ayanna Vicente Work Phone: [facility] 05-12-2024 13:50-0400 SaO2% (BldA) [Mass fraction] 93 % DO Ayanna Vicente Work Phone: [facility] 05-12-2024 13:50-0400 Systolic blood pressure 128 mm[Hg] DO Ayanna Vicente Work Phone: [facility] 05-11-2024 14:45-0400 Body mass index (BMI) [Ratio] 31.9 kg/m2 DO Ayanna Vicente Work Phone: [facility] 05-11-2024 14:45-0400 Body temperature 97.3 [degF] DO Ayanna Vicente Work Phone: [facility] 05-11-2024 14:45-0400 Diastolic blood pressure 70 mm[Hg] DO Ayanna Vicente Work Phone: [facility] 05-11-2024 14:45-0400 Heart rate 76 /min DO Ayanna Vicente Work Phone: [facility] 05-11-2024 14:45-0400 SaO2% (BldA) [Mass fraction] 91 % DO Ayanna Vicente Work Phone: [facility] 05-11-2024 14:45-0400 Systolic blood pressure 116 mm[Hg] DO Ayanna Vicente Work Phone: [facility] 05-11-2024 13:41-0400 Body height 180.34 cm DO Ayanna Vicente Work Phone: [facility] 05-11-2024 13:41-0400 Body weight 103.87 kg DO Ayanna Vicente Work Phone: [facility] 04-05-2024 08:52-0400 Body height 180.34 cm [facility] 04-05-2024 08:52-0400 Body mass index (BMI) [Ratio] 32.3 kg/m2 [facility] 04-05-2024 08:52-0400 Body temperature 97 [degF] [facility] 04-05-2024 08:52-0400 Body weight 105.23 kg [facility] 04-05-2024 08:52-0400 Diastolic blood pressure 62 mm[Hg] [facility] 04-05-2024 08:52-0400 Heart rate 87 /min [facility] 04-05-2024 08:52-0400 SaO2% (BldA) [Mass fraction] 90 % [facility] 04-05-2024 08:52-0400 Systolic blood pressure 98 mm[Hg] [facility] 03-08-2024 14:43-0400 Body height 180.34 cm [facility] 03-08-2024 14:43-0400 Body mass index (BMI) [Ratio] 32.1 kg/m2 [facility] 03-08-2024 14:43-0400 Body temperature 97 [degF] [facility] 03-08-2024 14:43-0400 Body weight 104.32 kg [facility] 03-08-2024 14:43-0400 Diastolic blood pressure 64 mm[Hg] [facility] 03-08-2024 14:43-0400 Heart rate 73 /min [facility] 03-08-2024 14:43-0400 SaO2% (BldA) [Mass fraction] 95 % [facility] 03-08-2024 14:43-0400 Systolic blood pressure 98 mm[Hg] [facility] 02-24-2024 10:15-0400 Body temperature 97.88 [degF] SUSAN KHANRY [facility] 02-24-2024 10:15-0400 Diastolic blood pressure 42 mm[Hg] SUSAN JAX [facility] 02-24-2024 10:15-0400 Heart rate 68 /min SUSAN JAX [facility] 02-24-2024 10:15-0400 Respiratory rate 16 /min SUSAN JAX [facility] 02-24-2024 10:15-0400 Systolic blood pressure 106 mm[Hg] SUSAN JAX [facility] 02-05-2024 08:08-0400 Body height 180.34 cm [facility] 02-05-2024 08:08-0400 Body mass index (BMI) [Ratio] 32.3 kg/m2 [facility] 02-05-2024 08:08-0400 Body temperature 97.8 [degF] [facility] 02-05-2024 08:08-0400 Body weight 105.23 kg [facility] 02-05-2024 08:08-0400 Diastolic blood pressure 74 mm[Hg] [facility] 02-05-2024 08:08-0400 Heart rate 70 /min [facility] 02-05-2024 08:08-0400 Respiratory rate 18 /min [facility] 02-05-2024 08:08-0400 SaO2% (BldA) [Mass fraction] 98 % [facility] 02-05-2024 08:08-0400 Systolic blood pressure 122 mm[Hg] [facility] 01-12-2024 14:32-0400 Body height 180.34 cm DO Ayanna Vicente Work Phone: [facility] 01-12-2024 14:32-0400 Body mass index (BMI) [Ratio] 30.9 kg/m2 DO Ayanna Vicente Work Phone: [facility] 01-12-2024 14:32-0400 Body temperature 98 [degF] DO Ayanna Ogabbi Work Phone: [facility] 01-12-2024 14:32-0400 Body weight 100.69 kg DO Ayanna Ogabbi Work Phone: [facility] 01-12-2024 14:32-0400 Heart rate 61 /min DO Ayanna Vicente Work Phone: [facility] 01-12-2024 14:32-0400 Respiratory rate 18 /min DO Ayanna Vicente Work Phone: [facility] 01-12-2024 14:32-0400 SaO2% (BldA) [Mass fraction] 91 % DO Ayanna Vicente Work Phone: [facility] 10-21-2023 14:45-0400 Body height 180.34 cm DO Ayanna Vicente Work Phone: [facility] 10-21-2023 14:45-0400 Body mass index (BMI) [Ratio] 32.5 kg/m2 DO Ayanna Vicente Work Phone: [facility] 10-21-2023 14:45-0400 Body temperature 97.5 [degF] DO Ayanna Vicente Work Phone: [facility] 10-21-2023 14:45-0400 Body weight 105.68 kg DO Ayanna Vicente Work Phone: [facility] 10-21-2023 14:45-0400 Diastolic blood pressure 76 mm[Hg] DO Ayanna Vicente Work Phone: [facility] 10-21-2023 14:45-0400 Respiratory rate 18 /min DO Ayanna Vicente Work Phone: [facility] 10-21-2023 14:45-0400 SaO2% (BldA) [Mass fraction] 92 % DO Ayanna Vicente Work Phone: [facility] 10-21-2023 14:45-0400 Systolic blood pressure 118 mm[Hg] DO Ayanna Vicente Work Phone: [facility] 08-12-2023 14:20-0500 Body height 180.34 cm Homa Mckeon Other [facility] 08-12-2023 14:20-0500 Body mass index (BMI) [Ratio] 32.21 kg/m2 [facility] Other [facility] Other 08-12-2023 14:20-0500 Body weight 104.78 kg Homa Mckeon Other [facility] Other 08-12-2023 14:20-0500 Body weight 104.77 kg DO Ayanna Vicente Work Phone: [facility] 04-15-2023 14:40-0400 Body height 180.34 cm Ayanna Vicente Other [place] Other 04-15-2023 14:40-0400 Body mass index (BMI) [Ratio] 33.61 kg/m2 Ayanna Vicente Other [employer] Other 04-15-2023 14:40-0400 Body temperature 98.8 [degF] Ayanna Vicente Other [employer] Other 04-15-2023 14:40-0400 Body weight 109.32 kg Ayanna Vicente Other [employer] Other 04-15-2023 14:40-0400 Diastolic blood pressure 82 mm[Hg] Ayanna Vicente Other [employer] Other 04-15-2023 14:40-0400 Respiratory rate 18 /min Ayanna Vicente Other [employer] Other 04-15-2023 14:40-0400 SaO2% (BldA) [Mass fraction] 93 % Ayanna Vicente Other [employer] Other 04-15-2023 14:40-0400 Systolic blood pressure 128 mm[Hg] Ayanna Vicente Other [employer] Other 02-25-2023 14:40-0400 Body height 180.34 cm Ayanna Vicente Other [employer] Other 02-25-2023 14:40-0400 Body mass index (BMI) [Ratio] 32.91 kg/m2 Ayanna Vicente Other [employer] Other 02-25-2023 14:40-0400 Body temperature 97.9 [degF] Ayanna Vicente Other [employer] Other 02-25-2023 14:40-0400 Body weight 107.05 kg Ayanna Vicente Other [employer] Other 02-25-2023 14:40-0400 Diastolic blood pressure 84 mm[Hg] Ayanna Vicente Other [employer] Other 02-25-2023 14:40-0400 Respiratory rate 18 /min Ayanna Vicente Other [employer] Other 02-25-2023 14:40-0400 SaO2% (BldA) [Mass fraction] 94 % Ayanna Vicente Other [employer] Other 02-25-2023 14:40-0400 Systolic blood pressure 122 mm[Hg] Ayanna Vicente Other [employer] Other 02-11-2023 11:35-0400 Blood Pressure Location SUSAN KHANRY [facility] 02-11-2023 11:35-0400 Diastolic blood pressure 67 mm[Hg] SUSAN JAX [facility] 02-11-2023 11:35-0400 Heart rate 70 /min SUSAN JAX [facility] 02-11-2023 11:35-0400 Systolic blood pressure 100 mm[Hg] SUSAN JAX [facility] 02-07-2023 13:28-0400 Body height 177.8 cm Santos Lares MD Work Phone: [facility] 02-07-2023 13:28-0400 Body temperature 97.3 [degF] Santos Lares MD Work Phone: [facility] 02-07-2023 13:28-0400 Body weight 107.96 kg Santos Lares MD Work Phone: [facility] 02-07-2023 13:28-0400 Diastolic blood pressure 72 mm[Hg] Santos Lares MD Work Phone: [facility] 02-07-2023 13:28-0400 Heart rate 74 /min Santos Lares MD Work Phone: [facility] 02-07-2023 13:28-0400 Respiratory rate 20 /min Santos Lares MD Work Phone: [facility] 02-07-2023 13:28-0400 SaO2% (BldA) [Mass fraction] 93 % Santos Lares MD Work Phone: [facility] 02-07-2023 13:28-0400 Systolic blood pressure 122 mm[Hg] Santos Lares MD Work Phone: [facility] 07-19-2022 12:17-0500 Body height 177.8 cm Santos Lares MD Work Phone: [facility] 07-19-2022 12:17-0500 Body temperature 98.01 [degF] Santos Lares MD Work Phone: [facility] 07-19-2022 12:17-0500 Body weight 105.6 kg Santos Lares MD Work Phone: [facility] 07-19-2022 12:17-0500 Diastolic blood pressure 71 mm[Hg] Santos Lares MD Work Phone: [facility] 07-19-2022 12:17-0500 Heart rate 72 /min Santos Lares MD Work Phone: [facility] 07-19-2022 12:17-0500 Respiratory rate 16 /min Santos Lares MD Work Phone: [facility] 07-19-2022 12:17-0500 SaO2% (BldA) [Mass fraction] 93 % Santos Lares MD Work Phone: [facility] 07-19-2022 12:17-0500 Systolic blood pressure 111 mm[Hg] Santos Lares MD Work Phone: [facility] 04-18-2022 11:58-0400 Body height 177.8 cm Santos Lares MD Work Phone: [facility] 04-18-2022 11:58-0400 Body temperature 97.81 [degF] Santos Lares MD Work Phone: [facility] 04-18-2022 11:58-0400 Body weight 102.69 kg Santos Lares MD Work Phone: [facility] 04-18-2022 11:58-0400 Diastolic blood pressure 68 mm[Hg] Santos Lares MD Work Phone: [facility] 04-18-2022 11:58-0400 Heart rate 70 /min Santos Lares MD Work Phone: [facility] 04-18-2022 11:58-0400 Respiratory rate 16 /min Santos Lares MD Work Phone: [facility] 04-18-2022 11:58-0400 SaO2% (BldA) [Mass fraction] 99 % Santos Lares MD Work Phone: [facility] 04-18-2022 11:58-0400 Systolic blood pressure 127 mm[Hg] Santos Lares MD Work Phone: [facility] 04-04-2022 10:59-0400 Body height 177.8 cm Santos Lares MD Work Phone: [facility] 04-04-2022 10:59-0400 Body temperature 97.11 [degF] Santos Lares MD Work Phone: [facility] 09-22-2022 10:59-0400 Body weight 103.78 kg Santos Lares MD Work Phone: [facility] 04-04-2022 10:59-0400 Diastolic blood pressure 73 mm[Hg] Santos Lares MD Work Phone: [facility] 04-04-2022 10:59-0400 Heart rate 68 /min Santos Lares MD Work Phone: [facility] 04-04-2022 10:59-0400 Respiratory rate 16 /min Santos Lares MD Work Phone: [facility] 04-04-2022 10:59-0400 SaO2% (BldA) [Mass fraction] 95 % Santos Lares MD Work Phone: [facility] 04-04-2022 10:59-0400 Systolic blood pressure 138 mm[Hg] Santos Lares MD Work Phone: [facility] 04-02-2022 14:20-0400 Body height 180.34 cm Ayanna Vicente Other [employer] Other 04-02-2022 14:20-0400 Body mass index (BMI) [Ratio] 31.73 kg/m2 Ayanna Vicente Other [employer] Other 04-02-2022 14:20-0400 Body temperature 97.2 [degF] Ayanna Vicente Other [employer] Other 04-02-2022 14:20-0400 Body weight 103.19 kg Ayanna Vicente Other [employer] Other 04-02-2022 14:20-0400 Diastolic blood pressure 76 mm[Hg] Ayanna Vicente Other [employer] Other 04-02-2022 14:20-0400 Respiratory rate 18 /min Ayanna Vicente Other [employer] Other 04-02-2022 14:20-0400 SaO2% (BldA) [Mass fraction] 96 % Ayanna Vicente Other [employer] Other 04-02-2022 14:20-0400 Systolic blood pressure 120 mm[Hg] Ayanna Vicente Other [employer] Other 02-06-2022 14:20-0400 Body height 180.34 cm Ayanna Vicente Other [employer] Other 02-06-2022 14:20-0400 Body mass index (BMI) [Ratio] 31.94 kg/m2 Ayanna Vicente Other [employer] Other 02-06-2022 14:20-0400 Body temperature 97.4 [degF] Ayanna Vicente Other [employer] Other 02-06-2022 14:20-0400 Body weight 103.87 kg Ayanna Vicente Other [employer] Other 02-06-2022 14:20-0400 Diastolic blood pressure 68 mm[Hg] Ayanna Vicente Other [employer] Other 02-06-2022 14:20-0400 Respiratory rate 18 /min Ayanna Vicente Other [employer] Other 02-06-2022 14:20-0400 SaO2% (BldA) [Mass fraction] 93 % Ayanna Vicente Other [employer] Other 02-06-2022 14:20-0400 Systolic blood pressure 114 mm[Hg] Ayanna Vicente Other [employer] Other 01-26-2022 05:00-0400 Body temperature 97.6 [degF] DO Ayanna Vicente Work Phone: [facility] 01-26-2022 05:00-0400 Diastolic blood pressure 77 mm[Hg] DO Ayanna Vicente Work Phone: [facility] 01-26-2022 05:00-0400 Heart rate 64 /min DO Ayanna Vicente Work Phone: [facility] 01-26-2022 05:00-0400 Respiratory rate 16 /min DO Ayanna Vicente Work Phone: [facility] 01-26-2022 05:00-0400 SaO2% (BldA) [Mass fraction] 94 % DO Ayanna Vicente Work Phone: [facility] 01-26-2022 05:00-0400 Systolic blood pressure 116 mm[Hg] DO Ayanna Vicente Work Phone: [facility] 01-23-2022 06:55-0400 Body height 177.8 cm DO Ayanna Vicente Work Phone: [facility] 01-20-2022 06:00-0400 Body weight 109.6 kg DO Ayanna Vicente Work Phone: [facility] 01-15-2022 17:00-0400 Body mass index (BMI) [Ratio] 33 kg/m2 DO Ayanna Vicente Work Phone: [facility] 01-15-2022 15:40-0400 Body temperature 97.9 [degF] DO Ayanna Vicente Work Phone: [facility] 01-15-2022 15:40-0400 Diastolic blood pressure 88 mm[Hg] DO Ayanna Vicente Work Phone: [facility] 01-15-2022 15:40-0400 Heart rate 72 /min DO Ayanna Vicente Work Phone: [facility] 01-15-2022 15:40-0400 Respiratory rate 18 /min DO Ayanna Vicente Work Phone: [facility] 01-15-2022 15:40-0400 SaO2% (BldA) [Mass fraction] 95 % DO Ayanna Vicente Work Phone: [facility] 01-15-2022 15:40-0400 Systolic blood pressure 128 mm[Hg] DO Ayanna Vicente Work Phone: [facility] 01-15-2022 05:11-0400 Body weight 107.9 kg DO Ayanna Vicente Work Phone: [facility] 01-13-2022 19:52-0400 Body height 177.8 cm DO Ayanna Vicente Work Phone: [facility] 01-13-2022 19:52-0400 Body mass index (BMI) [Ratio] 34.9 kg/m2 DO Ayanna Vicente Work Phone: [facility] 12-27-2021 11:10-0400 Body height 180.34 cm Ayanna Vicente Other [employer] [facility] [place] Other 12-27-2021 11:10-0400 Body mass index (BMI) [Ratio] 33.12 kg/m2 Ayanna Vicente Other [employer] Other 12-27-2021 11:10-0400 Body temperature 97.3 [degF] Ayanna Vicente Other [employer] Other 12-27-2021 11:10-0400 Body weight 107.73 kg Ayanna Vicente Other [employer] Other 12-27-2021 11:10-0400 Diastolic blood pressure 82 mm[Hg] Ayanna Vicente Other [employer] Other 12-27-2021 11:10-0400 Respiratory rate 20 /min Ayanna Vicente Other [employer] Other 12-27-2021 11:10-0400 SaO2% (BldA) [Mass fraction] 93 % Ayanna Vicente Other [employer] Other 12-27-2021 11:10-0400 Systolic blood pressure 124 mm[Hg] Ayanna Vicente Other [employer] Other 12-17-2021 12:00-0400 Body height 180.34 cm Ayanna [place] Other [employer] Other 12-17-2021 12:00-0400 Body mass index (BMI) [Ratio] 32.21 kg/m2 Ayanna [place] Other [employer] Other 12-17-2021 12:00-0400 Body weight 104.78 kg Ayanna [place] Other [employer] Other 12-17-2021 12:00-0400 Diastolic blood pressure 56 mm[Hg] Ayanna [place] Other [employer] Other 12-17-2021 12:00-0400 Systolic blood pressure 98 mm[Hg] Ayanna [place] Other [employer] Other 04-04-2021 14:20-0400 Body height 180.34 cm Ayanna Vicente Other [employer] Other 04-04-2021 14:20-0400 Body mass index (BMI) [Ratio] 32.35 kg/m2 Ayanna Vciente Other [employer] Other 04-04-2021 14:20-0400 Body temperature 97.7 [degF] Ayanna Vicente Other [employer] Other 04-04-2021 14:20-0400 Body weight 105.24 kg Ayanna Vicente Other [employer] Other 04-04-2021 14:20-0400 Diastolic blood pressure 70 mm[Hg] Ayanna Vicente Other [employer] Other 04-04-2021 14:20-0400 Respiratory rate 18 /min Ayanna Vicente Other [employer] Other 04-04-2021 14:20-0400 SaO2% (BldA) [Mass fraction] 97 % Ayanna Vicente Other [employer] Other 04-04-2021 14:20-0400 Systolic blood pressure 114 mm[Hg] Ayanna Vicente Other [employer] Other Encounters Encounter Date Encounter Type Care Provider Facility Start: 10-27-2025 ambulatory Sujey X Pat Fernandez y:[facility] Start: 03-21-2025 End: 03-21-2025 ambulatory Som Azul MD Facility: [facility] Start: 03-07-2025 End: 03-07-2025 ambulatory Som Azul MD Facility: [facility] Start: 02-28-2025 End: 02-28-2025 ambulatory Som Azul MD Facility: [facility] Start: 02-21-2025 End: 02-21-2025 ambulatory Som Azul MD Facility: [facility] Start: 02-15-2025 End: 02-15-2025 ambulatory Ayanna Vicente DO Work Phone: [facility] Work Phone: Start: 02-15-2025 End: 02-15-2025 Patient encounter procedure Ayanna Vicente DO -[facility] [place] Work Phone: Start: 02-09-2025 Non-patient / Non-visit Cem Azul MD -[facility] Work Phone: Start: 02-08-2025 End: 02-08-2025 ambulatory SUSAN RANDOLPH Facility:[facility] Start: 02-08-2025 End: 02-08-2025 Patient encounter procedure SUSAN RANDOLPH [facility] Start: 01-27-2025 End: 01-27-2025 ambulatory Ayanna Vicente DO Work Phone: [facility] Work Phone: Start: 01-27-2025 End: 01-27-2025 Patient encounter procedure Lesli Arevalo MD -[facility] Work Phone: Start: 01-19-2025 End: 01-19-2025 Telephone encounter Moe H Inessatz DO Work Phone: [facility] Start: 01-19-2025 End: 01-19-2025 Patient encounter procedure Moeradha Betts DO -[facility] Work Phone: Start: 01-19-2025 End: 01-19-2025 ambulatory Ayanna Vicente DO Work Phone: [facility] Work Phone: Start: 01-17-2025 Non-patient / Non-visit Lesli Arevalo MD -[facility] Work Phone: Start: 01-17-2025 End: 01-17-2025 ambulatory Som Azul MD Facility:[facility] Start: 01-12-2025 End: 01-12-2025 Office outpatient visit 15 minutes Moe H Itzkowitz DO Work Phone: [facility] Comment on above: Diarrhea, unspecifie d type (Primary Dx) Start: 01-12-2025 End: 01-12-2025 ambulatory MOE BETTS Not Available Start: 12-27-2024 End: 12-27-2024 ambulatory [...] Start: 12-17-2024 End: 12-17-2024 ambulatory AYANNA VICENTE Facility:[facility] Start: 12-16-2024 End: 12-16-2024 ambulatory [facility] Work Phone: Start: 12-16-2024 End: 12-16-2024 Patient encounter procedure [facility] Physician [facility] Work Phone: Start: 11-17-2024 End: 11-17-2024 Telephone encounter Chad Freitas MD Work Phone: [facility] Comment on above: Records faxed Start: 11-10-2024 End: 11-10-2024 ambulatory [facility] Work Phone: Start: 11-10-2024 End: 11-10-2024 Patient encounter procedure [facility] Physician [facility] Work Phone: Start: 11-01-2024 Non-patient / Non-visit [facility] Physician [facility] Work Phone: Start: 11-01-2024 End: 11-01-2024 ambulatory Som Azul MD Facility: [facility] Start: 10-11-2024 End: 10-11-2024 ambulatory Som Azul MD Facility:[facility] Start: 09-03-2024 End: 09-03-2024 ambulatory Ayanna Vicente Facility:[facility] Start: 09-03-2024 Non-patient / Non-visit Tad Ag DO Work Phone: [facility] Physician [facility] Work Phone: Start: 08-16-2024 End: 08-16-2024 ambulatory SUSAN RANDOLPH Facility:[facility] Start: 08-16-2024 End: 08-16-2024 Patient encounter procedure SUSAN RANDOLPH [facility] Start: 08-16-2024 End: 08-16-2024 ambulatory Som Azul MD Facility:[facility] Start: 08-11-2024 End: 08-11-2024 ambulatory Ayanna Vicente DO Work Phone: [facility] Work Phone: Start: 08-11-2024 End: 08-11-2024 Patient encounter procedure Ayanna Vicente DO Work Phone: [facility] Physician [facility] [place] Work Phone: Start: 08-11-2024 Non-patient / Non-visit Ayanna Vicente DO Work Phone: [facility] Physician [facility] [place] Work Phone: Start: 08-10-2024 End: 08-10-2024 ambulatory Ayanna Vicente DO Work Phone: [facility] Work Phone: Start: 08-10-2024 End: 08-10-2024 Departed Referred Ayanna Vicente DO Work Phone: [facility] [place] Work Phone: Start: 08-09-2024 End: 08-09-2024 Office outpatient visit 15 minutes Esvin Dubon NP Work Phone: [facility] Comment on above: Cognitive impairment (Primary Dx) Start: 08-09-2024 End: 08-09-2024 ambulatory ESVIN DUBON Not Available Start: 08-09-2024 End: 08-09-2024 Bamboo flowsheet Esvin Dubon CAGE CLERK Work Phone: [facility] Start: 08-09-2024 End: 08-09-2024 Bamboo flowsheet Esvin Dubon CAGE CLERK Work Phone: [facility] Start: 08-04-2024 End: 08-04-2024 ambulatory ESVIN DUBON Not Available Start: 07-26-2024 End: 07-26-2024 ambulatory [facility] Start: 07-12-2024 End: 07-12-2024 ambulatory Som Azul MD Facility:[facility] Start: 06-28-2024 End: 06-28-2024 Bamboo flowsheet Enrique Hammonds PhD Work Phone: [facility] Start: 06-28-2024 End: 06-28-2024 Bamboo flowsheet Enrique Hammonds PhD Work Phone: [facility] Start: 06-28-2024 End: 06-28-2024 Patient encounter procedure Enrique Hammonds PhD Work Phone: [facility] Comment on above: Memory loss (Primary Dx); Concentration deficit; Word finding difficulty; Other chronic pain; Family history of dementia Start: 06-28-2024 End: 06-28-2024 ambulatory ENRIQUE HAMMONDS Not Available Start: 06-23-2024 End: 06-23-2024 ambulatory MOE H ITZKOWIKATERIN Not Available Start: 06-23-2024 End: 06-23-2024 Office outpatient visit 15 minutes Moe H Itzkowitz DO Work Phone: [facility] Comment on above: Diarrhea, unspecifie d type (Primary Dx); Constipation, unspecified constipation type Start: 06-22-2024 End: 06-22-2024 Clinisync Result Encounter Babita Guillaume DO Work Phone: [facility] Unsolicited Start: 06-22-2024 End: 06-22-2024 Clinisync Result Encounter Babita Guillaume DO Work Phone: [facility] Start: 06-22-2024 Non-patient / Non-visit Ayanna Vicente DO Work Phone: [facility] Work Phone: Start: 06-17-2024 End: 06-17-2024 Bamboo flowsheet Babita Guillaume DO Work Phone: [facility] Start: 06-17-2024 End: 06-17-2024 Bamboo flowsheet Babita Guillaume DO Work Phone: [facility] Start: 06-17-2024 End: 06-17-2024 Office outpatient new 45 minutes Babita Guillaume DO Work Phone: [facility] Comment on above: Cognitive impairment (Primary Dx); Long-term use of high-risk medication Start: 06-17-2024 End: 06-17-2024 ambulatory BABITA GUILLAUME Not Available Start: 06-15-2024 Non-patient / Non-visit Ayanna Vicente DO Work Phone: [facility] Work Phone: Start: 06-15-2024 End: 06-15-2024 ambulatory Tri Vasquez Marker Facility:[facility] Start: 06-15-2024 End: 06-15-2024 Departed Referred Ayanna Vicente DO Work Phone: [facility] Start: 06-14-2024 End: 06-14-2024 ambulatory Som Azul MD Facility:[facility] Start: 06-08-2024 End: 06-08-2024 Chart abstracting Zohaib German MD Work Phone: Rheumatology Start: 06-07-2024 End: 06-07-2024 ambulatory Som Azul MD Facility: [facility] Start: 05-26-2024 End: 05-26-2024 ambulatory AYANNA VICENTE Facility:[facility] Start: 05-26-2024 Non-patient / Non-visit Ayanna Vicente DO Work Phone: [facility] Work Phone: Start: 05-26-2024 End: 05-26-2024 Office outpatient visit 15 minutes Chad Freitas MD Work Phone: Hematology/Oncology Comment on above: CLL (chronic lymphoc ytic leukemia) (HCC) (Primary Dx) Start: 05-26-2024 End: 05-26-2024 Patient encounter procedure Ayanna Vicente DO Work Phone: [facility] Work Phone: Start: 05-26-2024 End: 05-26-2024 ambulatory Ayanna Vicente DO Work Phone: [facility] Work Phone: Start: 05-18-2024 End: 05-18-2024 Patient encounter procedure DO Ayanna Vicente Work Phone: [facility] Work Phone: Start: 05-18-2024 End: 05-18-2024 ambulatory DO Ayanna Vicente Work Phone: 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); Fibromyalgia; Type 2 diabetes mellitus without complication, with long-term current use of insulin (HCC) Start: 05-12-2024 End: 05-12-2024 ambulatory DO Ayanna Vicente Work Phone: [facility] Work Phone: Start: 05-12-2024 End: 05-12-2024 Patient encounter procedure DO Ayanna Vicente Work Phone: [facility] Physician [facility] Work Phone: Start: 05-11-2024 End: 05-11-2024 ambulatory DO Ayanna Vicente Work Phone: [facility] Work Phone: Start: 05-11-2024 End: 05-11-2024 Patient encounter procedure DO Ayanna Vicente Work Phone: [facility] Work Phone: Start: 05-06-2024 End: 05-06-2024 Patient encounter procedure DO Ayanna Vicente Work Phone: [facility] [place] Work Phone: Start: 05-06-2024 End: 05-06-2024 ambulatory DO Ayanna Vicente Work Phone: [facility] Work Phone: Start: 04-05-2024 End: 04-05-2024 ambulatory [facility] Work Phone: Start: 04-05-2024 End: 04-05-2024 Patient encounter procedure [facility] Physician [facility] Work Phone: Start: 03-08-2024 End: 03-08-2024 ambulatory [facility] Work Phone: Start: 03-08-2024 End: 03-08-2024 Patient encounter procedure [facility] Physician [facility] [place] Work Phone: Start: 02-24-2024 End: 02-24-2024 ambulatory SUSAN RANDOLPH Facility:[facility] Start: 02-24-2024 End: 02-24-2024 Patient encounter procedure SUSAN RANDOLPH [facility] Start: 02-05-2024 End: 02-05-2024 ambulatory [facility] Work Phone: Start: 02-05-2024 End: 02-05-2024 Patient encounter procedure [facility] Physician [facility] Work Phone: Start: 02-04-2024 Non-patient / Non-visit [facility] Physician [facility] Work Phone: Start: 02-03-2024 End: 02-03-2024 ambulatory JAMES BROWNEVELYN Not Available Start: 01-12-2024 End: 01-12-2024 ambulatory DO Ayanna Vicente Work Phone: [facility] Work Phone: Start: 01-12-2024 End: 01-12-2024 Patient encounter procedure DO Ayanna Vicente Work Phone: [facility] Physician [facility] Work Phone: Start: 10-21-2023 End: 10-21-2023 ambulatory DO Ayanna Vicente Work Phone: [facility] Work Phone: Start: 10-21-2023 End: 10-21-2023 Patient encounter procedure DO Ayanna Vicente Work Phone: [facility] Physician [facility] Family [facility] Work Phone: Start: 10-20-2023 Non-patient / Non-visit DO Aftab Vicente Work Phone: [facility] Physician [facility] Work Phone: Start: 10-17-2023 End: 10-17-2023 ambulatory DO Ayanna Vicente Work Phone: [facility] Work Phone: Start: 10-17-2023 End: 10-17-2023 Patient encounter procedure DO Ayanna Ogabbi Work Phone: [facility] [place] Work Phone: Start: 10-16-2023 Non-patient / Non-visit DO Aftab Vicente Work Phone: [facility] Work Phone: Start: 10-13-2023 Non-patient / Non-visit DO Aftab id Sakina Work Phone: [facility] Physician [facility] Work Phone: Start: 08-28-2023 Bamboo flowsheet James reis DPM Work Phone: [facility] Start: 08-28-2023 Bamboo flowsheet James reis DPM Work Phone: [facility] Start: 08-28-2023 End: 08-28-2023 Patient encounter procedure James Smith DPM Work Phone: [facility] Comment on above: Onychomycosis (Prima ry Dx); 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); Pain in both feet Start: 08-18-2023 End: 08-18-2023 ambulatory Homa Mcke[facility] Other [place] [employer] Other Start: 08-18-2023 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 Start: 08-12-2023 End: 08-12-2023 Patient encounter procedure DO Ayanna Vicente Work Phone: [facility] Start: 07-16-2023 End: 07-16-2023 ambulatory Ayanna Vicente Other [employer] Other Start: 07-16-2023 Telephone encounter Ayanna Vicente [facility] [place] Start: 05-12-2023 End: 05-12-2023 ambulatory Junior Butterfield Other [employer] Other Start: 05-12-2023 Telephone encounter Junior Grere [facility] [employer] Start: 05-07-2023 End: 05-07-2023 ambulatory Ayanna Vicente Other [employer] Other Start: 05-07-2023 Telephone encounter Ayanna Vicente [facility] [place] Start: 04-29-2023 End: 04-29-2023 ambulatory Ayanna Vicente Other [employer] Other Start: 04-29-2023 Telephone encounter yAanna Vicente [facility] [place] Start: 04-25-2023 End: 04-25-2023 ambulatory Ayanna Vicente Other [employer] Other Start: 04-25-2023 Telephone encounter Ayanna Vicente [facility] [place] Start: 04-24-2023 End: 04-24-2023 ambulatory DO Ayanna Ogabbi Work Phone: [facility] Work Phone: Start: 04-24-2023 End: 04-24-2023 Patient encounter procedure DO Ayanna Ogabbi Work Phone: [facility] [place] Work Phone: Start: 04-22-2023 End: 04-22-2023 ambulatory Ayanna Vicente Other [employer] Other Start: 04-22-2023 Telephone encounter Ayanna Vicente [facility] [place] Start: 04-15-2023 End: 04-15-2023 ambulatory Ayanna Vicente Other [employer] Other Start: 04-15-2023 Office outpatient vi sit 25 minutes Ayanna Vicente [facility] Start: 04-14-2023 End: 04-14-2023 ambulatory Ayanna Vicente Other [employer] Other Start: 04-14-2023 Telephone encounter [facility] Start: 04-09-2023 End: 04-09-2023 ambulatory DO Ayanna Vicente Work Phone: [facility] Work Phone: Start: 04-09-2023 End: 04-09-2023 Patient encounter procedure DO Ayanna Vicente Work Phone: [facility] [place] Work Phone: Start: 02-25-2023 End: 02-25-2023 ambulatory Ayanna Vicente Other [employer] Other Start: 02-25-2023 Office outpatient vi sit 15 minutes Ayanna Vicente [facility] Start: 02-11-2023 End: 02-11-2023 Patient encounter procedure SUSAN RANDOLPH [facility] Start: 02-07-2023 End: 02-07-2023 ambulatory Santos Lares MD Work Phone: Hematology/Oncology Comment on above: CLL (chronic lymphoc ytic leukemia) (HCC) (Primary Dx) Start: 02-07-2023 End: 02-07-2023 Patient encounter procedure Santos Lares MD Work Phone: [place] Start: 01-16-2023 End: 01-16-2023 ambulatory Ayanna Vicente Other [employer] Other Start: 01-16-2023 Telephone encounter Ayanna Vicente [facility] Start: 01-15-2023 End: 01-15-2023 ambulatory Ayanna Vicente Other [employer] Other Start: 01-15-2023 Telephone encounter Ayanna Vicente [facility] [place] Start: 01-07-2023 End: 01-07-2023 ambulatory Ayanna Vicente Other [employer] Other Start: 01-07-2023 Telephone encounter Ayanna Vicente [facility] [place] Start: 01-06-2023 End: 01-06-2023 ambulatory Ayanna Vicente Other [employer] Other Start: 01-06-2023 Telephone encounter Ayanna Vicente [facility] [place] Start: 11-29-[address] AYANNA VICENTE Facilit y:H1 Start: 10-16-2022 End: 10-16-2022 ambulatory Ayanna Vicente Other [employer] Other Start: 10-16-2022 Telephone encounter Ayanna Vicente [facility] [place] Start: 10-02-2022 End: 10-02-2022 ambulatory Ayanna Vicente Other [employer] Other Start: 10-02-2022 Telephone encounter Ayanna Vicente [facility] [place] Start: 09-30-2022 End: 09-30-2022 ambulatory DO Ayanna Vicente Work Phone: [facility] Work Phone: Start: 09-30-2022 End: 09-30-2022 Patient encounter procedure DO Ayanna Vicente Work Phone: [facility] [place] Work Phone: Start: 09-24-2022 End: 09-24-2022 ambulatory DO Ayanna Vicente Work Phone: [facility] Work Phone: Start: 09-24-2022 End: 09-24-2022 Patient encounter procedure DO Ayanna Vicente Work Phone: [facility] [address] Work Phone: Start: 09-02-2022 End: 09-02-2022 ambulatory Ayanna Vicente Other [employer] Other Start: 09-02-2022 Telephone encounter Ayanna Vicente [facility] Start: 08-29-2022 End: 08-29-2022 ambulatory DO Ayanna Vicente Work Phone: [facility] Work Phone: Start: 08-29-2022 End: 08-29-2022 Patient encounter procedure DO Ayanna Vicente Work Phone: [facility] Work Phone: Start: 08-29-2022 End: 08-29-2022 Patient encounter procedure DO Ayanna Vicente Work Phone: [facility] [address] Work Phone: Start: 08-12-2022 End: 08-12-2022 ambulatory DO Ayanna Vicente Work Phone: [facility] Work Phone: Start: 08-12-2022 End: 08-12-2022 Patient encounter procedure DO Ayanna Vicente Work Phone: [facility] [place] Work Phone: Start: 08-05-2022 End: 08-05-2022 ambulatory Ayanna Vicente Other [employer] Other Start: 08-05-2022 Telephone encounter [facility] Start: 08-02-2022 ambulatory Ayanna Vicente Faci [id number] Start: 07-24-2022 End: 07-24-2022 ambulatory DO Ayanna Vicente Work Phone: [facility] Work Phone: Start: 07-24-2022 End: 07-24-2022 Patient encounter procedure DO Ayanna Vicente Work Phone: [facility]Electrodiagnostics Work Phone: Start: 07-19-2022 Telephone encounter Santos justice MD Work Phone: [facility] Comment on above: Referral Information (ENT) [...] encounter procedure Santos Lares MD Work Phone: [place] Start: 05-31-2022 End: 05-31-2022 ambulatory Ayanna Vicente Other [employer] Other Start: 05-31-2022 Telephone encounter Ayanna Vicente [facility] [place] Start: 05-14-2022 End: 05-14-2022 ambulatory Ayanna Vicente Other [employer] Other Start: 05-14-2022 Telephone encounter Ayanna Vicente [facility] [place] Start: 04-24-2022 End: 04-24-2022 ambulatory Ayanna Vicente Other [employer] Other Start: 04-24-2022 Telephone encounter Ayanna Vicente [facility] [place] Start: 04-23-2022 Telephone encounter Ayanna Vicente [facility] [place] Start: 04-23-2022 End: 04-23-2022 ambulatory DO Ayanna Vicente Work Phone: [employer] Other Start: 04-23-2022 End: 04-23-2022 Patient encounter procedure DO Ayanna Vicente Work Phone: [facility] [place] Start: 04-18-2022 End: 04-18-2022 ambulatory Santos Lares MD Work Phone: Hematology/Oncology Comment on above: CLL (chronic lymphoc ytic leukemia) (HCC) (Primary Dx) Start: 04-18-2022 End: 04-18-2022 Patient encounter procedure Santos Lares MD Work Phone: [place] Start: 04-10-2022 End: 04-10-2022 ambulatory Ayanna Vicente Other [employer] Other Start: 04-10-2022 Telephone encounter Ayanna Vicente [facility] Start: 04-05-2022 Telephone encounter Niurka Hood Hematology/Oncology Comment on above: Care Coordination (R esults) Start: 04-04-2022 End: 04-04-2022 ambulatory Santos Lares MD Work Phone: Hematology/Oncology Comment on above: Lymphocytosis (Prima ry Dx) Start: 04-04-2022 End: 04-04-2022 Patient encounter procedure Santos Lares MD Work Phone: [place] Start: 04-02-2022 End: 04-02-2022 ambulatory Ayanna Vicente Other [employer] Other Start: 04-02-2022 Office outpatient vi sit 40 minutes Ayanna Vicente [facility] Start: 04-01-2022 End: 04-01-2022 Patient encounter procedure DO Ayanna Vicente Work Phone: [facility] [place] Start: 03-26-2022 End: 03-26-2022 ambulatory Ayanna Vicente Other [employer] Other Start: 03-26-2022 Telephone encounter Ayanna Vicente [facility] Start: 03-19-2022 End: 03-19-2022 ambulatory Ayanna Vicente Other [employer] Other Start: 03-19-2022 Telephone encounter Ayanna Ogabbi [facility] [place] Start: 03-13-2022 End: 03-13-2022 ambulatory Ayanna Vicente Other [employer] Other Start: 03-13-2022 Telephone encounter Ayanna Vicente [facility] [place] Start: 03-08-2022 End: 03-08-2022 ambulatory Ayanna Vicente Other [employer] Other Start: 03-08-2022 Telephone encounter Ayanna Vicente [facility] [place] Start: 03-07-2022 End: 03-07-2022 ambulatory Ayanna Vicente Other [employer] Other Start: 03-07-2022 Telephone encounter Ayanna Vicente [facility] [place] Start: 02-28-2022 End: 02-28-2022 ambulatory Ayanna Vicente Other [employer] Other Start: 02-28-2022 Telephone encounter Ayanna Vicente [facility] [place] Start: 02-21-2022 End: 02-21-2022 ambulatory Ayanna Vicente Other [employer] Other Start: 02-21-2022 Telephone encounter Ayanna Vicente [facility] [place] Start: 02-18-2022 End: 02-18-2022 ambulatory Ayanna Vicente Other [employer] Other Start: 02-18-2022 Telephone encounter Ayanna Earleabbi [facility] [place] Start: 02-15-2022 End: 02-15-2022 ambulatory Ayanna Vicente Other [employer] Other Start: 02-15-2022 Telephone encounter Ayanna Vicente [facility] [place] Start: 02-11-2022 End: 02-11-2022 ambulatory Ayanna Vicente Other [employer] Other Start: 02-11-2022 Telephone encounter Ayanna Vicente [facility] [place] Start: 02-06-2022 End: 02-06-2022 ambulatory Ayanna Vicente Other [employer] Other Start: 02-06-2022 Office outpatient vi sit 25 minutes Ayanna Sakina [facility] [place] Start: 01-31-2022 End: 01-31-2022 ambulatory Ayanna Vicente Other [employer] Other Start: 01-31-2022 Telephone encounter Ayanna Vicente [facility] [place] Start: 01-15-2022 End: 01-26-2022 Evaluation and management of inpatient DO Ayanna Vicente Work Phone: [facility] Start: 01-13-2022 End: 01-15-2022 Evaluation and management of inpatient DO Ayanna Vicente Work Phone: [facility] Start: 01-07-2022 End: 01-07-2022 ambulatory Ayanna Vicente Other [employer] Other Start: 01-07-2022 Telephone encounter Ayanna Vicente [facility] [place] Start: 12-27-2021 End: 12-27-2021 ambulatory Ayanna Vicente Other [employer] Other Start: 12-27-2021 Office outpatient vi sit 15 minutes Ayanna Sakina [facility] [place] Start: 12-19-2021 End: 12-19-2021 ambulatory Ayanna Sakina Other [employer] Other Start: 12-19-2021 Telephone encounter Ayanna Vicente [facility] [place] Start: 12-18-2021 End: 12-18-2021 ambulatory Ayanna Milner Other [employer] Other Start: 12-18-2021 Telephone encounter Ayanna Milner [facility] Start: 12-17-2021 End: 12-17-2021 ambulatory Ayanna Milner Other [employer] Other Start: 12-17-2021 Office outpatient ne w 45 minutes Ayanna Milner [facility] Start: 11-12-2021 End: 11-12-2021 ambulatory Ayanna Vicente Other [employer] Other Start: 11-12-2021 Telephone encounter Ayanna Vicente [facility] [place] Start: 10-02-2021 End: 10-02-2021 ambulatory Ayanna Vicente Other [employer] Other Start: 10-02-2021 Telephone encounter Ayanna Vicente [facility] [place] Start: 10-01-2021 End: 10-01-2021 ambulatory Ayanna Vicente Other [employer] Other Start: 10-01-2021 Telephone encounter Ayanna Vicente [facility] [place] Start: 09-17-2021 End: 09-17-2021 ambulatory Ayanna Vicente Other [employer] Other Start: 09-17-2021 Telephone encounter Ayanna Vicente [facility] [place] Start: 09-13-2021 End: 09-13-2021 ambulatory Ayanna Vicente Other [employer] Other Start: 09-13-2021 Telephone encounter Ayanna Vicente [facility] [place] Start: 09-12-2021 End: 09-12-2021 ambulatory Ayanna Vicente Other [employer] Other Start: 09-12-2021 Telephone encounter Ayanna Vicente [facility] [place] Start: 07-18-2021 End: 07-18-2021 ambulatory Ayanna Vicente Other [employer] Other Start: 07-18-2021 Telephone encounter Ayanna Vicente [facility] Start: 06-18-2021 End: 06-18-2021 ambulatory Ayanna Vicente Other [place] [employer] Other Start: 06-18-2021 Telephone encounter Ayanna Vicente [facility] Start: 04-24-2021 Telephone encounter Ayanna Vicente [facility] Start: 04-04-2021 Office outpatient vi sit 25 minutes Ayanna Vicente [facility] Start: 02-08-2021 End: 02-08-2021 Orders Only [...] Work Phone: Start: 05-06-2024 Urine culture Ayanna og DO Work Phone: Start: 10-17-2023 Urine culture [...] Phone: Start: 01-13-2022 Plain chest X-ray DO Da peri Vicente Work Phone: Start: 01-13-2022 Plain X-ray [...] for ba cteria, including anaerobic screen DO Aaynna Vicente Work Phone: Colonoscopy SUSAN RANDOLPH Extraction of cataract SUKUMAR RANDOLPH History of hernia repair HEATHER RANDOLPH SARS Antigen (LFIA) DO Ayanna Vicente Work Phone: Urine culture DO Ayanna Young Mercateo Work Phone: Plan of Treatment Date Care Activity Detail Author Start: 01-14-2032 Urine microalbumin profile DTaP,Tdap,Td Vaccine (2 - Td or Tdap) [facility] Start: 05-26-2027 Diabetes Screening Diabetes Screenin [facility] Start: 08-08-2026 Diabetes Screening [facility] Start: 02-07-2026 DIABETES SCREEN DIABETES SCREEN [facility] Start: 12-19-2025 End: 12-19-2025 Patient encounter procedure 12/19/2025 11:00 AM EDT Office Visit Rheumatology [id number] [facility] [place] [address] [place] [id number] [facility] [place] [address] Return in about 1 year (around 12/17/2025). Rheumatology Comment on above: Return in about 1 ye ar (around 12/17/2025). Start: 07-19-2025 DIABETES SCREEN DIABETES SCREEN [facility] Start: 03-14-2025 Influenza vaccination Influenza Vacc ine (#1) [facility] Start: 01-28-2025 End: 01-28-2025 Patient encounter procedure 01/28/2025 10:30 AM EDT Office Visit [facility] [address] [phone] Moe Betts DO [address] [facility] [address] [place] [address] [facility] Start: 11-25-2024 End: 11-25-2024 Patient encounter procedure 11/25/2024 11:20 AM EDT Office Visit Rheumatology [address] [facility] [place] [address] [place] [id number] [facility] [place] [address] 6 month follow up Rheumatology Comment on above: 6 month follow up Start: 11-24-2024 End: 11-24-2024 Follow-up encounter 11/24/2024 10:30 AM EDT Visit (SP) Office Hematology/Oncology [address] [place] [address] Chad Freitas MD [address] [place] [address] 6 month follow up Hematology/Oncology Comment on above: 6 month follow up Start: 11-24-2024 End: 11-24-2024 Patient encounter procedure 11/24/2024 10:15 AM EDT Office Visit [facility] [address] [place] [address] [place] [address] 6 month follow up [facility] Comment on above: 6 month follow up Start: 11-15-2024 End: 11-15-2024 Patient encounter procedure 11/15/2024 11:00 AM EDT Office Visit Rheumatology [id number] [facility] [place] [address] [place] [id number] [facility] [place] [address] 6 month follow up Rheumatology Comment on above: 6 month follow up Start: 11-10-2024 Patient referral [facility] Work Phone: Start: 09-16-2024 Covid-19 Vaccine ( season) Covid-[address] () [facility] Start: 09-03-2024 Urine culture [facility] Start: 08-10-2024 Bacteria identified in Urine by Culture Urine Culture [facility] Start: 08-10-2024 End: 08-10-2024 Urine culture [facility] Start: 08-09-2024 End: 08-09-2024 Patient encounter procedure [facility] [address] Comment on above: Arrived Start: 08-04-2024 End: 08-04-2024 Patient encounter procedure 08/04/2024 11:30 AM EST Office Visit [facility] [address] [facility] [address] [place] [phone] [facility] [address] [facility] Start: 07-14-2024 Advance Directive Discussion Advance Directive Discussion [facility] Start: 06-28-2024 End: 06-28-2024 Patient encounter procedure [facility] Comment on above: Cognitive impairment Start: 06-23-2024 End: 06-23-2024 Patient encounter procedure 06/23/2024 2:30 PM EST Consult [facility] [address] [facility] [address] [place] [phone] Moe Betts, DO [address] [address] [place] [address] [facility] Start: 06-17-2024 End: 06-17-2025 Cobalamin (Vitamin B12) [Mass/volume] in Serum or Plasma Vitamin B12 Lab Routine Cognitive impairment Long-term use of high-risk medication Expected: 06/17/2024 (Approximate), Expires: 06/17/2025 [facility] Work Phone: Comment on above: Expected: 06/17/2024 (Approximate), Expires: 06/17/2025 Start: 06-17-2024 End: 06-17-2024 Patient encounter procedure 06/17/2024 2:00 PM EST Office Visit [facility] [address] [place] [phone] Babita Guillaume, DO [address] [place] [address] [facility] Comment on above: Arrived Start: 06-17-2024 End: 06-17-2025 Thyrotropin [Units/volume] in Serum or Plasma TSH Lab Routine Cognitive impairment Long-term use of high-risk medication Expected: 06/17/2024 (Approximate), Expires: 06/17/2025 [facility] Comment on above: Expected: 06/17/2024 (Approximate), Expires: 06/17/2025 Start: 05-11-2024 Patient referral [facility] Work Phone: Start: 05-06-2024 Bacteria identified in Urine by Culture Urine Culture [facility] Start: 04-05-2024 Patient referral [facility] Work Phone: Start: 02-05-2024 Patient referral [facility] Work Phone: Start: 11-17-2023 End: 11-17-2023 Patient encounter procedure 11/17/2023 1:15 PM EDT Procedure Visit [facility] [address] [place] [phone] James Smith DPM [address] [place] [address] [facility] Start: 10-17-2023 Bacteria identified in Urine by Culture [facility] Start: 08-18-2023 Shingrix Vaccine (2 of 2) Rodriguez grix Vaccine (2 of 2) [facility] Start: 08-10-2023 End: 10-10-2023 CBC W Auto Differential panel - Blood CBC + DIFF Lab Routine CLL (chronic lymphocytic leukemia) (HCC) Expected: 08/10/2023 (Approximate), Expires: 10/10/2023 [facility] Work Phone: Comment on above: Expected: 08/10/2023 (Approximate), Expires: 10/10/2023 Start: 08-10-2023 End: 10-10-2023 Comprehensive metabolic 2000 panel - Serum or Plasma COMP METABOLIC PANEL Lab Routine CLL (chronic lymphocytic leukemia) (HCC) Expected: 08/10/2023 (Approximate), Expires: 10/10/2023 [facility] Work Phone: Comment on above: Expected: 08/10/2023 (Approximate), Expires: 10/10/2023 Start: 07-14-2023 Advance Directive Discussion Advance Directive Discussion [facility] Start: 03-14-2023 Influenza vaccination [facility] Start: 01-16-2023 End: 03-18-2023 CBC W Auto Differential panel - Blood CBC + DIFF Lab Routine CLL (chronic lymphocytic leukemia) (HCC) Expected: 01/16/2023 (Approximate), Expires: 03/18/2023 [facility] Work Phone: Comment on above: Expected: 01/16/2023 (Approximate), Expires: 03/18/2023 Start: 01-16-2023 End: 03-18-2023 Comprehensive metabolic 2000 panel - Serum or Plasma COMP METABOLIC PANEL Lab Routine CLL (chronic lymphocytic leukemia) (HCC) Expected: 01/16/2023 (Approximate), Expires: 03/18/2023 [facility] Work Phone: Comment on above: Expected: 01/16/2023 (Approximate), Expires: 03/18/2023 Start: 08-19-2022 COVID-19 VACCINE (5 - Pfizer series) COVID-19 VACCINE (5 - Pfizer series) [facility] Start: 07-26-2022 End: 08-18-2023 Us breast uni real time with image limited US BREAST LTD LT Radiology Routine Axillary adenopathy Other signs and symptoms in breast Expected: 07/26/2022, Expires: 08/18/2023 [facility] Work Phone: Comment on above: Expected: 07/26/2022 , Expires: 08/18/2023 Start: 07-19-2022 End: 09-18-2022 CBC W Auto Differential panel - Blood CBC + DIFF Lab Routine CLL (chronic lymphocytic leukemia) (HCC) Expected: 07/19/2022 (Approximate), Expires: 09/18/2022 [facility] Work Phone: Comment on above: Expected: 07/19/2022 (Approximate), Expires: 09/18/2022 Start: 07-19-2022 End: 09-18-2022 Comprehensive metabolic 2000 panel - Serum or Plasma COMP METABOLIC PANEL Lab Routine CLL (chronic lymphocytic leukemia) (HCC) Expected: 07/19/2022 (Approximate), Expires: 09/18/2022 [facility] Work Phone: Comment on above: Expected: 07/19/2022 (Approximate), Expires: 09/18/2022 Start: 07-19-2022 End: 09-18-2022 Lactate dehydrogenase [Enzymatic activity/volume] in Serum or Plasma LD LACTATE DEHYDRO Lab Routine CLL (chronic lymphocytic leukemia) (HCC) Expected: 07/19/2022 (Approximate), Expires: 09/18/2022 [facility] Work Phone: Comment on above: Expected: 07/19/2022 (Approximate), Expires: 09/18/2022 Start: 07-14-2022 ADVANCE DIRECTIVE DISCUSSION ADVANCE DIRECTIVE DISCUSSION [facility] Start: 07-14-2022 DEPRESSION ASSESSMENT DEPRESSION ASS ESSMENT [facility] Start: 04-04-2022 End: 06-04-2022 [id number] [Mass/volume] in Serum or Plasma [facility] Work Phone: Comment on above: Expected: 04/04/2022 , Expires: 06/04/2022 Start: 04-04-2022 End: 06-04-2022 Chronic hepatitis differentiation between hepatitis B and C virus panel - Serum or Plasma [facility] Work Phone: Comment on above: Expected: 04/04/2022 , Expires: 06/04/2022 Start: 04-04-2022 End: 06-04-2022 FLOW CYTOMETRY PERIPHERAL BLOOD LEUK/LYMPH (FCLEUK) [facility] Work Phone: Comment on above: Expected: 04/04/2022 , Expires: 06/04/2022 Start: 03-14-2022 Influenza vaccination INFLUENZA (#1) [facility] Start: 01-24-2022 [facility] Start: 01-21-2022 Consultation [facility] Start: 01-15-2022 Hospital admission [facility] Start: 01-15-2022 Referral to clinical beauty specialist [facility] Start: 01-15-2022 [facility] Work Phone: Start: 01-13-2022 Hospital admission [facility] Work Phone: Start: 07-27-2021 COVID-19 VACCINE (4 - Booster for Pfizer series) COVID-19 VACCINE (4 - Booster for Pfizer series) [facility] Start: 07-14-2021 ADVANCE DIRECTIVE DISCUSSION ADVANCE DIRECTIVE DISCUSSION [facility] Start: 07-14-2021 DEPRESSION ASSESSMENT DEPRESSION ASS ESSMENT [facility] Start: 03-14-2021 Influenza vaccination INFLUENZA (#1) [facility] Start: 2007 ADVANCE DIRECTIVE DISCUSSION ADVANCE DIRECTIVE DISCUSSION [facility] Start: 2007 BONE D[address] BONE DENS[address] [facility] Start: 2007 PNEUMOCOCCAL: 65+ (1 - PCV) PNEUMOCOCCAL: 65+ (1 - PCV) [facility] Start: 2007 PNEUMOVAX AGE 65 AND OVER WITH 5YR LOOKBACK (#1) PNEUMOVAX AGE 65 AND OVER WITH 5YR LOOKBACK (#1) [facility] Start: 2007 Screening for osteoporosis Bone Density Screening [facility] Start: 1992 Screening for malign ant neoplasm of colon [facility] Start: 1992 SHINGRIX VACCINE (1 of 2) RODRIGUEZ GRIX VACCINE (1 of 2) [facility] Start: 1987 DIABETES SCREEN DIABETES SCREEN [facility] Start: 1961 SHINGRIX VACCINE (1 of 2) RODRIGUEZ GRIX VACCINE (1 of 2) [facility] Start: 1961 Urine microalbumin profile DTAP,TDAP,TD (1 - Tdap) [facility] Start: 1960 Anxiety Screening Anxiety Screening [facility] Start: 1960 Depression Screening Depression Scre ening [facility] Start: 1960 Hepatitis B surface antibody level LDL Cholesterol [facility] Start: 1960 HEPATITIS C SCREENING [facility]ITIS [facility] Start: 1954 Adult depression screening assessment DEPRESSION SCREENING [facility] Start: 1954 COVID-19 VACCINE (1) COVID-19 VACCIN E (1) [facility] Start: 1952 Diabetic foot examination Diabetic F oot Exam [facility] Start: 1952 Glaucoma screening Dilated Retinal E xam [facility] Start: 1952 Hepatitis B screening Urine Albumin:Creatinine Ratio [facility] Start: 1948 PNEUMOCOCCAL: 65+ (1 - PCV) PNEUMOCOCCAL: 65+ (1 - PCV) [facility] Start: 1947 Hemoglobin A1c measurement HbA1C [facility] Bacteria identified in Urine by Culture [facility] CBC W Auto Different ial panel - Blood CBC + DIFF Lab Routine Lymphocytosis 04/04/2022 11:00 AM EDT [facility] Work Phone: CBC W Auto Different ial panel - Blood COMPLETE BLOOD COUNT AND DIFFERENTIAL Lab Routine CLL (chronic lymphocytic leukemia) (HCC) 05/26/2024 2:20 PM EST [facility] Work Phone: Comprehensive metabo lic 1999 panel - Serum or Plasma [facility] Comprehensive metabo lic 2000 panel - Serum or Plasma [facility] Comprehensive metabo lic 1999 panel - Serum or Plasma [facility] FLOW CYTOMETRY PERIP HERAL BLOOD LEUK/LYMPH (FCLEUK) FLOW CYTOMETRY PERIPHERAL BLOOD LEUK/LYMPH (FCLEUK) Lab Routine Lymphocytosis 04/04/2022 11:[address] [facility] Work Phone: FLOW SLIDE FLOW SLIDE Lab R outine Lymphocytosis 04/04/2022 11:[address] [facility] Work Phone: Glucose measurement estimated from glycated hemoglobin [facility] Hepatitis B virus co re Ab [Presence] in Serum HEP B CORE AB TOTAL Lab Routine Lymphocytosis 04/04/2022 11:[address] [facility] Work Phone: Hepatitis B virus noe rface Ab [Presence] in Serum HEP B SURF AB QUAL Lab Routine Lymphocytosis 04/04/2022 11:[address] [facility] Work Phone: Hepatitis B virus noe rface Ab [Presence] in Serum by Immunoassay HEP B SURF AG SCRN Lab Routine Lymphocytosis 04/04/2022 11:[address] [facility] Work Phone: Hepatitis C virus Ab [Presence] in Serum HEP C AB IA W/CONF SCRN Lab Routine Lymphocytosis 04/04/2022 11:[address] [facility] Work Phone: End: 08-18-2023 SONYA SCREENING W NEYDA SONYA SCREENING W NEYDA Radiology Routine Encounter for screening mammogram for malignant neoplasm of breast 1 Occurrences starting 07/19/2022 until 08/18/2023 [facility] Work Phone: Comment on above: 1 Occurrences starti ng 07/19/2022 until 08/18/2023 MG Breast - bilatera l Screening [facility] MG Breast - bilatera l Screening [facility] Patient Education Wrist Fracture (DC) [facility] Work Phone: Patient referral [facility] Work Phone: End: 03-10-2022 Radiologic exam knee complete 4/more views XR KNEE GENERAL 4V AP BOTH/PA BOTH/LAT/MERC BILAT Radiology Routine Pain in both knees, unspecified chronicity 1 Occurrences starting 02/08/2021 until 03/10/2022 [facility] Comment on above: 1 Occurrences starti ng 02/08/2021 until 03/10/2022 End: 03-10-2022 Radiologic examination pelvis 1/2 views XR PELVIS 1V AP Radiology Routine Pain in both knees, unspecified chronicity 1 Occurrences starting 02/08/2021 until 03/10/2022 [facility] Comment on above: 1 Occurrences starti ng 02/08/2021 until 03/10/2022 Renal function 1999 panel - Serum or Plasma [facility] Renal function 1999 panel - Serum or Plasma [facility] Serum fructosamine measurement [facility] Work Phone: Urine culture [facility] Urine culture [facility] US Kidney - bilateral [facility] XR Hip - left 2 Views [facility] XR Knee - left 4 Views [facility] End: 08-18-2023 XR RIBS/CHEST 3V AP RIB/OBLS/CXR LEFT XR RIBS/CHEST 3V AP RIB/OBLS/CXR LEFT Radiology Routine Rib pain 1 Occurrences starting 07/19/2022 until 08/18/2023 [facility] Work Phone: Comment on above: 1 Occurrences starti ng 07/19/2022 until 08/18/2023 [facility] Immunizations Immunization Date Immunization Notes Care Provider Fa cility 03-19-2024 COVID-19 (PFIZER) 12Y and older Ayanna Vicente DO Work Phone: [facility] 03-19-2024 influenza virus vaccine, unspecified formulation SUSAN RANDOLPH [facility] 03-19-2024 influenza, high dose seasonal, preservative-free Ayanna Vicente DO Work Phone: [facility] 06-23-2023 COVID-19 (PFIZER) 12Y and older [facility] 06-23-2023 Pneumococcal Conjuga te Vaccine, 20 valent [facility] 06-23-2023 RSV, preF3, adj, pf [facility] 06-23-2023 zoster vaccine recombinant [facility] 04-15-2023 influenza, high dose seasonal, preservative-free Ayanna Vicente Other [employer] Other 04-15-2023 Fluzone QIV High-Dos e 65YR+ [facility] 04-15-2023 influenza virus vaccine, unspecified formulation James Smith DPM Work Phone: [facility] 04-22-2022 pneumococcal polysaccharide vaccine, 23 valent Ayanna Vicente Other [facility] 04-18-2022 COVID-19 mRNA Bivale nt Booster (Pfizer) [facility] 01-13-2022 tetanus toxoid, redu paola diphtheria toxoid, and acellular pertussis vaccine, adsorbed Ayanna Vicente Other [facility] 06-01-2021 COVID-19 Vaccine Pfi zer - Documentation Purposes Only Ayanna Vicente Other [facility] 04-25-2021 influenza virus vaccine, unspecified formulation SUSAN RANDOLPH [facility] 04-04-2021 influenza, high dose seasonal, preservative-free Ayanna Vicente Other [employer] Other 04-04-2021 influenza virus vaccine, unspecified formulation DO Ayanna Vicente Work Phone: [facility] 04-04-2021 Influenza, High-dose Seasonal, Quadrivalent, Preservative Free James Smith DPM Work Phone: [facility] 09-01-2020 COVID-19 Vaccine Pfi zer - Documentation Purposes Only Ayanna Vicente Other [facility] 09-01-2020 SARS-CoV-2 (COVID-19 ) mRNA-1273 vaccine SUSAN JAX [facility] 08-11-2020 COVID-19 Vaccine Pfi zer - Documentation Purposes Only Ayanna Vicente Other [facility] 08-11-2020 SARS-CoV-2 (COVID-19 ) mRNA-1273 vaccine SUSAN JAX [facility] 03-14-2020 influenza virus vaccine, unspecified formulation SUSAN JAX [facility] 07-14-2019 pneumococcal conjuga te vaccine, 13 valent [facility] 04-03-2019 influenza virus vaccine, unspecified formulation SUSAN JAX [facility] 04-03-2019 Seasonal trivalent influenza vaccine, adjuvanted, preservative free [facility] 04-03-2019 pneumococcal polysaccharide vaccine, 23 valent Ayanna Vicente Other [facility] 04-03-2019 influenza, seasonal, injectable Ayanna Vicente Other [facility] 05-25-2018 influenza virus vaccine, unspecified formulation SUSANCHARLI RANDOLPH [facility] 05-25-2018 Influenza, injectabl e, Madin Anjelica Canine Kidney, preservative free, quadrivalent [facility] 05-25-2018 influenza, seasonal, injectable Ayanna Vicente Other [facility] 04-22-2018 Kenalog -40 mg Ayanna Vicente Other [employer] Other Payers Date Payer Category Payer Self-pay [id number] 2022 Unknown [id number] 2020 Private Health Insurance [facility] AARP SUPPLEMENT [id number] 2020-Present Indemnity [id number] 2020 Private Health Insurance [id number] 2007 Medicare MEDICARE MEDICAR E A AND B [id number] 2007-Present [place] Medicare [id number] .[id number] 2007 Medicare [id number] [id number] .[id number] 1959 Medicare [id number] 2.16.840.1.732647.19 1959 Unknown [id number] 2.16.840.1.803017.19 1942 Unknown [id number] 2.16.840.1.807885.3.579.2 .356 1942 Unknown [id number] 2.16.840.1.707294.3.579.2 .593 1942 Unknown [id number] 2.16.840.1.871420.3.579.2 .1259 1942 Unknown [id number] 2.16.840.1.142338.3.579.2 .1259 1942 Unknown [id number] 2.16.840.1.318018.3.579.2 .1259 1942 Unknown [id number] 2.16.840.1.423716.3.579.2 .1259 1942 Unknown [id number] 2.16.840.1.058060.3.579.2 .1259 1942 Unknown [id number] 2.16.840.1.331008.3.579.2 .1259 1942 Unknown [id number] 2.16.840.1.929203.3.579.2 .1259 1942 Unknown [id number] 2.16.840.1.859100.3.579.2 .727 1942 Unknown [id number] 2.16.840.1.879115.3.579.2 .727 1942 Unknown [id number] 2.16.840.1.620040.3.579.2 .727 1942 Unknown [id number] 2.16.840.1.278325.3.579.2 .727 1942 Unknown [id number] 2.16.840.1.989528.3.579.2 .196 1942 Unknown [id number] 2.16.840.1.062590.3.579.2 .196 1942 Unknown [id number] 2.16.840.1.974408.3.579.2 .196 1942 Unknown [id number] 2.16.840.1.257601.3.579.2 .196 1942 Unknown [id number] 2.16.840.1.314796.3.579.2 .196 1942 Unknown [id number] 2.16.840.1.938641.3.579.2 .196 1942 Unknown [id number] 2.16.840.1.255872.3.579.2 .196 1942 Unknown [id number] 2.16.840.1.553247.3.579.2 .196 1942 Unknown [id number] 2.16.840.1.046390.3.579.2 .196 1942 Unknown [id number] 2.16840.1.178228.3.579.2 .196 1942 Unknown [id number] 2.16.840.1.776746.3.579.2 .196 1942 Unknown [id number] 2.16840.1.675804.3.579.2 .196 1942 Unknown [id number] 2.16840.1.429589.3.579.2 .196 1942 Unknown [id number] 2.16840.1.235210.3.579.2 .196 Unknown [id number] 2.16.840.1.369319.3.579.2 .531 Unknown [id number] 2.16.840.1.480003.3.579.2 .531 Unknown [id number] 2.16.840.1.728256.3.579.2 .531 Unknown [id number] 2.16.840.1.180598.3.579.2 .531 Unknown [id number] 2.16840.1.913982.3.579.2 .531 Unknown [id number] 2.16.840.1.483965.3.579.2 .531 Unknown [id number] 2.16840.1.005425.3.579.2 .531 Social History Date Type Detail Facility Start: 02-20-2004 End: 12-16-2024 Tobacco smoking status VTIS Former smoker [facility] Comment on above: quit smoking in 1985 Start: 07-14-1979 End: 07-14-1999 History of tobacco use Current smoker [facility] Work Phone: Start: 02-20-2004 [facility] intake [facility] Start: 1940 Sex Assigned At Not on file C [facility] Start: 02-07-2023 End: 01-12-[address] [facility] Start: 1940 Sex Assigned At Female F [facility] Start: 07-14-1979 End: 07-14-1999 History of tobacco use Cigarette Smoker [facility] Start: 04-04-2022 End: 01-12-2025 Cigarettes smoked current (pack per day) - Reported 1.5 [facility] Start: 04-04-2022 End: 12-17-2024 Tobacco use and exposure Smokeless tobacco non-user [facility] Start: 04-04-2022 End: 12-17-2024 Alcohol intake Ex-drinker (finding) [facility] Start: 03-25-2022 End: 04-18-2022 Exposure to SARS-CoV-2 (event) Not sure [facility] Adult Depression Screening Assessment 0 [facility] Comment on above: quit smoking in 1984 Start: 12-07-2022 Tobacco smoking stat us VTIS Never smoked tobacco [facility] Start: 08-21-2023 End: 01-12-2025 Alcohol intake Current drinker of alcohol (finding) [facility] Start: 12-07-2022 Alcohol Comment Alcohol: 1-2 d rinks occasionally. Caffeine: 3-4 cups/day coffee [facility] Start: 05-27-2024 End: 12-16-2024 Sex Female (finding) [facility] Sexual Orientation [facility] Medical Equipment Procedure Code Equipment [...] ALLOGRAFT FUSELO X LUMBAR FDA Start: 03-24-2017 [place] One Level Deformity FDA Start: 03-24-2017 CANCELLOUS [...] ALLOGRAFT FUSELO X LUMBAR FDA Start: 03-24-2017 [place] One Level Deformity FDA Start: 03-24-2017 CANCELLOUS [...] ALLOGRAFT FUSELO X LUMBAR FDA Start: 03-24-2017 [place] One Level Deformity FDA Start: 03-24-2017 CANCELLOUS [...] ALLOGRAFT FUSELO X LUMBAR FDA Start: 03-24-2017 [place] One Level Deformity FDA Start: 03-24-2017 CANCELLOUS [...] ALLOGRAFT FUSELO X LUMBAR FDA Start: 03-24-2017 [place] One Level Deformity FDA Start: 03-24-2017 CANCELLOUS [...] ALLOGRAFT FUSELO X LUMBAR FDA Start: 03-24-2017 [place] One Level Deformity FDA Start: 03-24-2017 CANCELLOUS [...] ALLOGRAFT FUSELO X LUMBAR FDA Start: 03-24-2017 [place] One Level Deformity FDA Start: 03-24-2017 CANCELLOUS [...] ALLOGRAFT FUSELO X LUMBAR FDA Start: 03-24-2017 [place] One Level Deformity FDA Start: 03-24-2017 CANCELLOUS [...] ALLOGRAFT FUSELO X LUMBAR FDA Start: 03-24-2017 [place] One Level Deformity FDA Start: 03-24-2017 CANCELLOUS [...] ALLOGRAFT FUSELO X LUMBAR FDA Start: 03-24-2017 [place] One Level Deformity FDA Start: 03-24-2017 CANCELLOUS [...] ALLOGRAFT FUSELO X LUMBAR FDA Start: 03-24-2017 [place] One Level Deformity FDA Start: 03-24-2017 CANCELLOUS [...] ALLOGRAFT FUSELO X LUMBAR FDA Start: 03-24-2017 [place] One Level Deformity FDA Start: 03-24-2017 CANCELLOUS [...] ALLOGRAFT FUSELO X LUMBAR FDA Start: 03-24-2017 [place] One Level Deformity FDA Start: 03-24-2017 CANCELLOUS [...] ALLOGRAFT FUSELO X LUMBAR FDA Start: 03-24-2017 [place] One Level Deformity FDA Start: 03-24-2017 CANCELLOUS [...] ALLOGRAFT FUSELO X LUMBAR FDA Start: 03-24-2017 [place] One Level Deformity FDA Start: 03-24-2017 CANCELLOUS [...] ALLOGRAFT FUSELO X LUMBAR FDA Start: 03-24-2017 [place] One Level Deformity FDA Start: 03-24-2017 CANCELLOUS [...] ALLOGRAFT FUSELO X LUMBAR FDA Start: 03-24-2017 [place] One Level Deformity FDA Start: 03-24-2017 CANCELLOUS [...] ALLOGRAFT FUSELO X LUMBAR FDA Start: 03-24-2017 [place] One Level Deformity FDA Start: 03-24-2017 CANCELLOUS [...] ALLOGRAFT FUSELO X LUMBAR FDA Start: 03-24-2017 [place] One Level Deformity FDA Start: 03-24-2017 CANCELLOUS [...] ALLOGRAFT FUSELO X LUMBAR FDA Start: 03-24-2017 [place] One Level Deformity FDA Start: 03-24-2017 CANCELLOUS [...] ALLOGRAFT FUSELO X LUMBAR FDA Start: 03-24-2017 [place] One Level Deformity FDA Start: 03-24-2017 CANCELLOUS [...] ALLOGRAFT FUSELO X LUMBAR FDA Start: 03-24-2017 [place] One Level Deformity FDA Start: 03-24-2017 CANCELLOUS [...] ALLOGRAFT FUSELO X LUMBAR FDA Start: 03-24-2017 [place] One Level Deformity FDA Start: 03-24-2017 CANCELLOUS [...] ALLOGRAFT FUSELO X LUMBAR FDA Start: 03-24-2017 [place] One Level Deformity FDA Start: 03-24-2017 CANCELLOUS [...] ALLOGRAFT FUSELO X LUMBAR FDA Start: 03-24-2017 [place] One Level Deformity FDA Start: 03-24-2017 CANCELLOUS [...] ALLOGRAFT FUSELO X LUMBAR FDA Start: 03-24-2017 [place] One Level Deformity FDA Start: 03-24-2017 CANCELLOUS [...] ALLOGRAFT FUSELO X LUMBAR FDA Start: 03-24-2017 [place] One Level Deformity FDA Start: 03-24-2017 CANCELLOUS [...] ALLOGRAFT FUSELO X LUMBAR FDA Start: 03-24-2017 [place] One Level Deformity FDA Start: 03-24-2017 CANCELLOUS [...] 08-16-2024 Functional Status N/A [facility] 02-24-2024 Functional Status N/A [facility] 02-11-2023 Functional Status N/A [facility] 01-26-2022 Functional status Patient is Pro gressing Toward Baseline [facility] Work Phone: Mental Status Date Assessment Result Facility 01-26-2022 Cognitive function Cognitive Sta tus Patient at Baseline [facility] Work Phone: Clinical Notes 04-04-2021 to 02-08-2025 Telephone Encounter - Moe Betts, - 01/19/2025 4:35 PM EDTTelephone Encounter - [...] your health care provider. General instructions Take etxh-fnk-rhetame and prescription medicines only as told by [...] provider. Document Revised: 03/19/2021 Document Reviewed: 03/19/2021 [employer] Patient Education 2023 [place] [employer]. Follow Up Care 08/16/2024 09:56:41 With:Follow up in Spring Address:Unknown When: Unknown [facility] 02-08-2025 Note Patient Education Obstetrics [...] health care provider. General instructions ??? Take kcdy-kkx-pwpenua and prescription medicines only as told by [...] drink, and whe (more content not included)... [facility] 01-19-2025 Telephone encounter Note Marci had [...] medications. I'll see her PRN. [facility] 01-19-2025 Miscellaneous Notes Marci had an attempt [...] PRN. documented in this encounter [facility] 01-12-2025 History of Present illness Narrative Images [...] urethra 3x per week for UTI prevention, [employer] renal #72, 178, cm, 08/16/24 9:10:00 EST, Height/Length [...] replacement OTHER SURGICAL HISTORY 1999 fissure repair [place] REPAIR SLIDING INGUINAL HERNIA Hernia, inguinal TOTAL [...] made. documented in this encounter [facility] 12-17-2024 History of Present illness Narrative Images from the original note were not included. 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 There have not been any new health [...] Reviewed on 05/26/2024 Name Date COVID-19 vaccine ([employer]) 03/19/2024, 06/23/2023 COVID-19 vaccine, bivalent ([employer]) 04/18/2022 COVID-19 vaccine, monovalent ([employer] [employer]) 06/01/2021, 09/01/2020, 08/11/2020 Physical Exam GENERAL APPEARANCE: [...] which included preparing to see the patient, [id number]-nvlt patient care, completing clinical documentation, obtaining and/or [...] Time: 10:27 AM documented in this encounter [facility] 12-17-2024 Note HNO ID: [id number] Author: ZOHAIB GERMAN MD Service: ? 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 There have not been any new health [...] History FAMILY HISTORY (more content not included)... [facility] 12-16-2024 Evaluation note Diagnosis Onset Date [...] 2025 2:43pm Diabetes chronic February 15 2:43pm [facility] Work Phone: [phone]) 334-852505-07-2025 Telephone encounter Note* Telephone Encounter - Susan Caballero - 11/17/2024 2:35 PM EDT Records faxed to Dr. Silva [phone]. I called Roxie to let her know they were faxed. [facility]05-07-2025 Miscellaneous Notes* [facility] 2:35 PM EDT Records faxed to Dr. Silva [phone]. I called Roxie to let her know they were faxed. * Telephone Encounter - Lori Renner - 11/17/2024 11:[address] Zena DREW Received a call from patient caregiver Roxie Bhagat. She stated that patient would like to cancel her upcoming appointment with Dr Paredes on 11/24 due to patient is going to be following with Dr Silva @ [facility] as this is closer to home for patient. Roxie requested to talk to medical records regarding having records sent to Dr Silva transferred call To Heather Todd. Lori Callahan [facility] Telephone encounter Note * Telephone Encounter - Lori Renner - 11/17/2024 11:[address] Zena DREW Received a call from patient caregiver Roxie Bhagat. She stated that patient would like to cancel her upcoming appointment with Dr Paredes on 11/24 due to patient is going to be following with Dr Silva @ [facility] as this is closer to home for patient. Roxie requested to talk to medical records regarding having records sent to Dr Silva transferred call To Heather Todd. Lori Callahan [facility]04-30-2025 Evaluation note* Author Ayanna Vicente [facility] Authored November 10, 2024 4:5 1pm The above note written by __ _Melanie Conde____ acting as human recorder, note dictated by Dr. Slater .I performed the above HPI, ROS, and Examination. I formulated and dictated the treatment plan and was present for entire encounter. Ayanna Vicente D.O. [facility] Work Phone: 1(139) 953-405004-30-2025 Hospital Discharge instructionsAmbulatory Orders* Referral to Hematology Time Frame: 11/10/24, Location: None Selected * Referral to Nephrology Time Frame: 11/10/24, Location: None Selected [facility] Work Phone: 1(199) 132-809102-03-2025 Hospital Discharge instructions Patient Education 08/16/2024 10:04:56 [...] provider. Document Revised: 01/28/2023 Document Reviewed: 01/28/2023 [employer] Patient Education 2023 [employer] [employer]. Follow Up Care 08/11/2024 14:41:18 With:JAX BECKMAN, SUSAN Miller, URL Address: [address] [place] [address] When:Within 6 Month(s) [facility] 02-03-2025 NotePatient Education Caregiving Antibiotic [...] ??? You have sig (more content not included)...[facility] 08-11-2024 Evaluation note* Author Ayanna Vicente [facility] Authored August 11, 2024 1 :46pm The above note written by __ _Melanie Conde____ acting as human recorder, note dictated by Dr. Slater .I performed the above HPI, ROS, and Examination. I formulated and dictated the treatment plan and was present for entire encounter. Ayanna Vicente D.O. [facility] Work Phone: [phone]) 725-223101-27-2025 History of Present illness Narrative* Esvin Dubon, BERTA - 08/09/2024 2:20 PM EST Images from [...] replacement OTHER SURGICAL HISTORY 1999 fissure repair [place] REPAIR SLIDING INGUINAL HERNIA Hernia, inguinal TOTAL [...] , wrist extensors , wrist flexor , music writer strength 5/5. LUE Strength deltoid , biceps , triceps , wrist extensors , wrist flexor , music writer strength 5/5. RLE Strength illopsoas, quadriceps, tibialis [...] knee reflex 0. Hdz's sign negative. Coordination: Njqmpj-ro-dgjs testing is normal Rapid alternating movements are [...] B12 721 [place] cognitive assessment at [facility] on 06/17/2024: 2930 [facility]: Mild age-related changes and [...] of mental health issues documented in this [facility]12-16-2024 History of Present illness Narrative* Enrique Hammonds, [...] No history of alcohol/substance abuse. Reformed smoker. [place] language [place]. Completed a master's degree. 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 and currently lives alone. Because of one child living out of state. MEDICAL HISTORY/MEDICATION: Past Medical History: Diagnosis Date Hernia, inguinal History of insulin dependent diabetes mellitus IDDM History of left knee replacement History of right knee joint replacement 2009 Leukemia (CMS/HCC) Neuropathy IDDM MEDICATIONS: Current Outpatient [...] PRN incontinence, #90 tab(s), Refills(s) 3, Pharmacy: [id number], 178, cm, 02/11/23 11:43:00 EDT, Height/Length [...] of this individual. Please contact me with [employer] at [phone]. documented in this encounterMercy Hospital [id number] History of Present illness Narrative* Moe Betts, [...] replacement OTHER SURGICAL HISTORY 1999 fissure repair [place] REPAIR SLIDING INGUINAL HERNIA Hernia, inguinal TOTAL [...] the scope. documented in this encounterMercy Hospital WashingtonUpbligjelj17-74-0104 History of Present illness Narrative* Babita Guillaume [...] replacement OTHER SURGICAL HISTORY 1999 fissure repair [place] REPAIR SLIDING INGUINAL HERNIA Hernia, inguinal TOTAL [...] Awake, alert to person, place and time. Forrest cognitive assessment: Language is fluent without aphasia. [...] , wrist extensors , wrist flexor , music writer strength 5/5. LUE Strength deltoid , biceps , triceps , wrist extensors , wrist flexor , music writer strength 5/5. RLE Strength illopsoas, quadriceps, tibialis [...] knee reflex 0. Hdz's sign negative. Coordination: Tisdwr-ro-zvpg testing and rapid alternating movements are normal Gait: Normal Review and summary of old records: Forrest cognitive assessment at [facility] on 06/17/2024: Assessment/Plan Diagnoses and all [...] health issues documented in this encounterMercy Hospital WashingtonCakmvbdqxu39-32-6940 NoteHNO ID: [id number] Author: YOUNG HERRERA LPN Service: ? Author Type: LICENSED NURSE Type: Progress Notes Filed: 06/08/2024 13:05 Note Text: Eye exam for Plaquenil toxicity received from [facility] . Exam date was 06/07/2024. Exam shows no signs of Plaquenil toxicity. Forms sent for scanning.[facility]11-26-[facility] History of Present illness Narrative* Young Herrera LPN - 06/08/2024 1:05 PM EST Eye exam for Plaquenil toxicity received from [facility] . Exam date was 06/07/2024. Exam shows no signs of Plaquenil toxicity. Forms sent for scanning. documented in this encounterSt. [facility]11-13-[facility]24 Instructions* Patient Instructions* Chad Freitas MD - 05/26/2024 2:09 PM EST Labs today F/u in 6 months documented in this encounterSt. Francis Hospital11-13-2024 History of Present illness Narrative* Chad Freitas MD - 05/26/2024 2:00 PM EST Images from the original note were not included. PATIENT NAME: Kathy Washburn CLINIC NO.: [id number] ATTENDING PHYSICIAN: Chad Freitas MD DATE OF [...] sweats - Did mammogram last week at [facility]. - Scheduled to see Branch Operations Specialist PAST MEDICAL HISTORY Diagnosis Date Depression Diabetes [...] Range Status 08/08/2023 2.0 % Final Abs Dewey Date Value Ref Range Status 08/08/2023 0.39 [...] do not hesitate to contact me at [phone]. Chad Freitas MD Hematology/Medical Oncology [facility] I spent a total of 20 minutes on the date of the service which included preparing to see the patient, jgvp-tu-mrdo patient care, completing clinical documentation, obtaining and/or reviewing separately obtained history, counseling and educating the patient/family/caregiver, and ordering medications, tests, or procedures. CC: Ayanna Vicente DO documented in this encounterSt. Francis Hospital11-13-2024 NoteHNO ID: [id number] Author: CHAD FREITAS MD Service: ? Author Type: Physician Type: Progress Notes Filed: 05/26/2024 14:41 Note Text: PATIENT NAME: Kathy Washburn CLINIC NO.: [id number] ATTENDING PHYSICIAN: Chad Freitas MD DATE OF [...] sweats - Did mammogram last week at [facility]. - Scheduled to see Branch Operations Specialist PAST MEDICAL HISTORY Diagnosis Date Depression Diabetes [...] Date Value Ref Range (more content not included)...[facility] 05-17-2024 NoteHNO ID: [id number] Author: ZOHAIB GERMAN MD Service: ? Author Type: Physician Type: Progress Notes Filed: 05/17/2024 13:34 Note Text: Rheumatology Outpatient Clinic Date of Service: 05/17/2024 Patient: Kathy Washburn Medical Record: [id number] Primary Care Physician: Ayanna Vicente DO Last [facility] visit[facility] Referring Provider: No referring provider defined for this encounter. History of Present Illness Kathy Washubrn is a 83 year old White female [...] unit/mL injection Inject subcutaneously (more content not included)...[facility]11-04-2024 History of Present illness Narrative* Zohaib German MD - 05/17/2024 12:56 PM EST Images from the original note were not included. Rheumatology Outpatient Clinic Date of Service: 05/17/2024 Patient: Kathy Washburn Medical Record: [id number] Primary Care Physician: Ayanna Vicente DO Last [facility] visit: [facility] Referring Provider: No referring provider defined [...] Reviewed on 07/19/2022 Name Date COVID-19 vaccine ([facility]) 03/19/2024, 06/23/2023 COVID-19 vaccine, bivalent ([facility]) 04/18/2022 COVID-19 vaccine, monovalent ([facility]) 06/01/2021, 09/01/2020, 08/11/2020 Physical Exam GENERAL APPEARANCE: [...] without complication, with long-term current use of insulin([facility]) Plan Orders this visit: Office Visit on [...] which included preparing to see the patient, poym-az-atos patient care, completing clinical documentation, obtaining and/or [...] 2024 Time: 12:56 PM documented in this encounterSt. Francis Hospital10-29-2024 Hospital Discharge instructionsAmbulatory Orders* Referral to Neurology Time Frame: 05/11/24, Location: None Selected [facility] Work Phone: 1(482) 895-285208-26-2024 Evaluation note* Author Ayanna Vicente [facility] Authored March 08, 2024 3: 24pm The above note written by __ _Melanie Conde____ acting as human recorder, note dictated by Dr. Slater .I performed the above HPI, ROS, and Examination. I formulated and dictated the treatment plan and was present for entire encounter. Ayanna Vicente D.O. Author Ayanna [facility] Authored February 05, 2024 9:11 am The above note written by __ _Melanie Conde____ acting as human recorder, note dictated by Dr. Slater .I performed the above HPI, ROS, and Examination. I formulated and dictated the treatment plan and was present for entire encounter. Ayanna Vicente D.O. [facility] Work Phone: 1(941) 208-138708-26-2024 Evaluation note* Author Ayanna [facility] Authored March 08, 2024 3: 24pm The above note written by __ _Melanie Conde____ acting as human recorder, note dictated by Dr. Slater .I performed the above HPI, ROS, and Examination. I formulated and dictated the treatment plan and was present for entire encounter. Ayanna Vicente D.O. Author Ayanna [facility] Authored April 05, 2024 10:47am The above note written by __ _Melanie Conde____ acting as human recorder, note dictated by Dr. Slater .I performed the above HPI, ROS, and Examination. I formulated and dictated the treatment plan and was present for entire encounter. Ayanna Vicente D.O. [facility] Work Phone: 1(834) 358-735808-26-2024 Evaluation note* Author Ayanna [facility] Authored March 08, 2024 3: 24pm The above note written by __ _Melanie Conde____ acting as human recorder, note dictated by Dr. Slater .I performed the above HPI, ROS, and Examination. I formulated and dictated the treatment plan and was present for entire encounter. Ayanna Vicente D.O. Author Ayanna [facility] Authored May 11, 2024 3 :30pm The above note written by __ _Melanie Conde____ acting as human recorder, note dictated by Dr. Slater .I performed the above HPI, ROS, and Examination. I formulated and dictated the treatment plan and was present for entire encounter. Ayanna Vicente D.O. Author [facility] Authored April 05, 2024 10:47am The above note written by __ _Melanie Conde____ acting as human recorder, note dictated by Dr. Slater .I performed the above HPI, ROS, and Examination. I formulated and dictated the treatment plan and was present for entire encounter. Ayanna Vicente D.O. [facility] Work Phone: 1(780) 207-313108-26-2024 Evaluation note* Author Ayanna [facility] Authored March 08, 2024 2: 24pm The above note written by __ _Melanie Conde____ acting as human recorder, note dictated by Dr. Slater .I performed the above HPI, ROS, and Examination. I formulated and dictated the treatment plan and was present for entire encounter. Ayanna Vicente D.O. Author [facility] Authored May 11, 2024 2 :30pm The above note written by __ _Melanie Conde____ acting as human recorder, note dictated by Dr. Slater .I performed the above HPI, ROS, and Examination. I formulated and dictated the treatment plan and was present for entire encounter. Ayanna Vicente D.O. Author [facility] Authored April 05, 2024 9:47am The above note written by __ _Melanie Conde____ acting as human recorder, note dictated by Dr. Slater .I performed the above HPI, ROS, and Examination. I formulated and dictated the treatment plan and was present for entire encounter. Ayanna Vicente D.O. [facility] Work Phone: 1(437) 206-298108-13-2024 Hospital Discharge instructions Patient Education 02/24/2024 10:42:26 [...] your health care provider. General instructions Take msnn-nbh-xrriasp and prescription medicines only as told by [...] provider. Document Revised: 03/19/2021 Document Reviewed: 03/19/2021 [employer] Patient Education 2022 [employer]. Follow Up Care 02/11/2023 12:11:14 With:SUSAN RANDOLPH PA-C, URL Address: [address] [place] [id number] [id number] When: Unknown Comments:6 mos (no labs) [facility] 08-13-2024 NotePatient Education Obstetrics and [...] health care provider. General instructions ? Take tdwa-qvn-gdcrobx and prescription medicines only as told by [...] help your health care (more content not included)...[facility]07-25-2024 Evaluation note* Author Ayanna Vicente [facility] Authored February 05, 2024 9:11 am The above note written by __ _Melanie Conde____ acting as human recorder, note dictated by Dr. Slater .I performed the above HPI, ROS, and Examination. I formulated and dictated the treatment plan and was present for entire encounter. Ayanna Vicente D.O. [facility] Work Phone: 1(312) 951-254004-09-2024 Evaluation note* Author Ayanna Vicente [facility] Authored October 21, 2023 4:11 pm The above note written by __ _Melanie Conde____ acting as human recorder, note dictated by Dr. Slater .I performed the above HPI, ROS, and Examination. I formulated and dictated the treatment plan and was present for entire encounter. Ayanna Vicente D.O. [facility] Work Phone: 1([phone]) 801-324702-15-2024 History of Present illness Narrative* James Smith, [...] 150 Interested in diabetic shoes/inserts Dispensed Kandy [id number] in Purple, size 11 M on 04/11/22. [...] were noted. documented in this encounterMercy Hospital WashingtonHsmjnwizbw09-31-5421 Evaluation note* Encounter Date Diagnosis Assessment Notes [...] sacroiliac steroidal injection. Refer the patient to [facility] for aqua therapy. Discuss with primary care physician, Dr. Vicente, about prescribing a steroid prednisone for temporary relief during the patient's cruise, in the event unable to see painmanagment before vacation. Order a lidocaine patch for the patient to use on the sacroiliac and hip area for pain relief.Recommend near-aym-zbuzmxk Thermacare or heat patches to use alongside the lidocaine patch. 3. 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 Monitor the degeneration and consider a preventative approach. Encourage the patient to take Tylenol arthritis for overall help. 4. Bone density: - Plan: Dexa scan within normal limits. Jul, Pain in left hip (ICD-10 - M25.552) Jul, Sacroiliac inflammation (ICD-10 - M46.1) Jul, Cervical pain (ICD-10 - M54.2) Jul, DDD (degenerative disc disease), lumbar (ICD-10 - M51.36) [facility] 01-03-2024 Evaluation note* Encounter Date Diagnosis [...] She will continue to monitor her memory. [facility] Other 10-03-2023 Evaluation note* Encounter Date Diagnosis [...] s he has about immunizations were answered. [facility] Other 10-02-2023 Evaluation note* Encounter Date Diagnosis Assessment Notes Treatment Notes Treatment Clinical Notes Apr, Insomnia (ICD-10 - G47.00) Apr, Neuropathy (ICD-10 - G62.9) [facility] Other 08-15-2023 Evaluation note* Encounter Date Diagnosis [...] 2023 Lumbar disc disease (ICD-10 - M51.9) [facility] Other 08-01-2023 Hospital Discharge instructions Patient Education [...] your health care provider. General instructions Take lebl-gzi-znscpyr and prescription medicines only as told by [...] provider. Document Revised: 03/19/2021 Document Reviewed: 03/19/2021 [employer] Patient Education 2022 [employer]. Follow Up Care 01/23/2023 15:26:59 With:JAX BECKMAN, SUSAN Miller, URL Address: [address] [place] [address] [facility] [place] [address] When: Unknown [facility] 07-28-2023 History of Present illness Narrative* Santos Lares MD - 02/07/2023 1:38 PM EDT Images from the original note were not included. PATIENT NAME: Kathy Washburn CLINIC NO.: [id number] ATTENDING PHYSICIAN: Santos Lares MD DATE OF [...] Range Status 07/19/2022 5.0 % Final Abs Dewey Date Value Ref Range Status 07/19/2022 0.84 [...] do not hesitate to contact me at [phone]. Santos Lares MD Hematology/Medical Oncology [facility] spent a total of 30 minutes on the date of the service which included preparing to see the patient, rxkt-vc-jvwd patient care, completing clinical documentation, obtaining and/or reviewing separately obtained history, counseling and educating the patient/family/caregiver, and ordering medications, tests, or procedures. CC: Ayanna Vicente DO documented in this encounterSt. [facility] Hospital06-27-2023 Evaluation note* Encounter Date Diagnosis Assessment [...] prescription of Cipro when she was in [place], she finds that her symptoms seem to happen when she is traveling. We discussed her seeing Dr. El for evaluation due to recurrent urine infections. She voices that she has not contacted that office but will do this. Dec, Other 1:43 PM - 1:59 PM [facility] Other [id number] Evaluation note* Encounter Date Diagnosis Assessment Notes Treatment Notes Treatment Clinical Notes Dec, Hyperlipidemia (ICD-10 - E78.5) [facility] Other 04-05-2023 Evaluation note* Encounter Date Diagnosis Assessment Notes Treatment Notes Treatment Clinical Notes Oct, Neuropathy (ICD-10 - G62.9) [facility] Other 03-22-2023 Evaluation note* Encounter Date Diagnosis Assessment Notes Treatment Notes Treatment Clinical Notes Sep, Insomnia (ICD-10 - G47.00) [facility] Other 03-22-2023 Evaluation note* Encounter Date Diagnosis [...] to see her blood sugars below 90. [place] sugar readings are in the 120's. She [...] discussion for her to have with her java engineer. Sep, Insomnia (ICD-10 - G47.00) We discussed [...] has not driven past any local [place] She did have a cardiac work up [...] abuse treatments are being prescribed. Sep, Other senior living (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 therapy (ICD-10 - Z79.899) Sep, [...] had an MRI of her neck done. [facility] Other 01-09-2023 Miscellaneous Notes* Telephone Encounter - [...] Lori Callahan I had already called Malachi walden before I saw previous message from Lisa [...] you! Susana Grant documented in this encounterSt. [facility] Hospital01-06-2023 History of Present illness Narrative* Santos Lares MD - 07/19/2022 12:34 PM EST PATIENT NAME: Kathy Washburn CLINIC NO.: [id number] ATTENDING PHYSICIAN: Santos Lares MD DATE OF [...] 11.45 (H) 1.00 - 4.00 k/uL Final Dewey% Date Value Ref Range Status 07/19/2022 5.0 % Final Abs Dewey Date Value Ref Range Status 07/19/2022 0.84 [...] do not hesitate to contact me at [phone]. Santos Lares MD Hematology/Medical Oncology [facility] spent a total of 30 minutes on the date of the service which included preparing to see the patient, rlje-tw-cloy patient care, completing clinical documentation, obtaining and/or reviewing separately obtained history, counseling and educating the patient/family/caregiver, and ordering medications, tests, or procedures. Medical Decision Making: Medical Decision Making Level: 1 - N/A CC: Ayanna Vicente DO documented in this encounterSt. Francis Hospital01-06-2023 Nurse Note* Lluvia Samuel MA - 07/19/2022 12:20 PM EST Patient would like to ask you about her right ear, it is painful to touch, her head also hurts and also has Left side pain. Lluvia Samuel MA documented in this [facility]11-18-2022 Evaluation note* Encounter Date Diagnosis Assessment Notes Treatment Notes Treatment Clinical Notes May, Cystitis (ICD-10 - N30.90) [facility] Other 10-11-2022 Evaluation note* Encounter Date Diagnosis Assessment Notes Treatment Notes Treatment Clinical Notes Apr, BMI 31.0-31.9,adult (ICD-10 - Z68.31) [facility] Other 10-06-2022 History of Present illness Narrative* Santos Lares MD - 04/18/2022 11:59 AM EDT PATIENT NAME: Kathy Washburn CLINIC NO.: [id number] ATTENDING PHYSICIAN: Santos Lares MD DATE OF [...] 9.37 (H) 1.00 - 4.00 k/uL Final Dewey% Date Value Ref Range Status 04/04/2022 5.0 % Final Abs Dewey Date Value Ref Range Status 04/04/2022 0.67 [...] do not hesitate to contact me at [phone]. Santos Lares MD Hematology/Medical Oncology [facility] spent a total of 30 minutes on the date of the service which included preparing to see the patient, kqgz-kc-jwvz patient care, completing clinical documentation, obtaining and/or reviewing separately obtained history, counseling and educating the patient/family/caregiver, and ordering medications, tests, or procedures. Medical Decision Making: Medical Decision Making Level: 1 - N/A CC: Ayanna Vicente DO documented in this encounterSt. Francis Hospital09-28-2022 Evaluation note* Encounter Date Diagnosis Assessment Notes Treatment Notes Treatment Clinical Notes Mar, Neuropathy (ICD-10 - G62.9) [facility] Other [id number] Miscellaneous Notes* Telephone Encounter - Santos Lares MD - 04/05/2022 5:06 PM EDT Spoke to the patient and answered her questions * Telephone Encounter - Niurka Hood RN - 04/05/2022 4:08 PM EDT Pt notified and verbalizes understanding. Pt would like to speak w/ you before her next appointment. Asks that you call her @ [phone] when you have time. Thanks! Niurka Hood [...] one picked up documented in this encounterSt. Francis Hospital09-22-2022 History of Present illness Narrative* Santos Lares MD - 04/04/2022 11:32 AM EDT PATIENT NAME: Kathy Washburn CLINIC NO.: [id number] ATTENDING PHYSICIAN: Santos Lares MD DATE OF [...] ago. Has a son who lives in [place]. She does not smoke nor drink heavily. [...] below. Santos Lares M.D. Hematology/Medical Oncology [facility] [phone] CC: Ayanna Vicente DO documented in this encounterSt. Francis Hospital09-20-2022 Evaluation note* Encounter Date Diagnosis Assessment [...] hurt. She has not followed with any school psychology specialist. She saw Dr. Akins in the [...] would like to refer her to a sulfonator operator for evaluation, and she agrees. A referral [...] if needed. She can also see a toy painter to discuss injections. She voices that she saw Dr. Guillaume in the past for migraines and would like to see Dr. Morales for evaluation. For now she will try to take the pain medication more often and see if this provides her with better relief and will continue to monitor. I will refer her to Dr. Morales for evaluation. Mar, Other long term care social worker (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 therapy (ICD-10 - Z79.899) Mar, [...] to get this until seen by the sulfonator operator. She voices understanding. Mar, Encounter for screening [...] find out where Dr. Milner went in [place] and then will refer her back to Dr. Milner to discuss a colonoscopy. Mar, Weight loss (ICD-10 - R63.4) She has lost 1.5 pounds since last seen. [facility] Other 09-06-2022 Evaluation note* Encounter Date Diagnosis Assessment Notes Treatment Notes Treatment Clinical Notes Mar, Diabetes type 2, uncontrolled (ICD-10 - E11.65) Mar, Hypertension (ICD-10 - I10) Mar, Neuropathy (ICD-10 - G62.9) [facility] Other 08-26-2022 Evaluation note* Encounter Date Diagnosis Assessment Notes Treatment Notes Treatment Clinical Notes Feb, Diabetes type 2, uncontrolled (ICD-10 - E11.65) [facility] Other 07-27-2022 Evaluation note* Encounter Date Diagnosis [...] Ambien, she is taking Melatonin. Jan, Other senior living (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 therapy (ICD-10 - Z79.899) Jan, [...] ER right away because she was at [place] which is [place] of [place] and there was not an ER close [...] he thinks she can return to driving. [facility] Other 06-27-2022 Evaluation note* Encounter Date Diagnosis Assessment Notes Treatment Notes Treatment Clinical Notes Dec, Dysphagia (ICD-10 - R13.10) [facility] Other 06-27-2022 Evaluation note* Encounter Date Diagnosis Assessment Notes Treatment Notes Treatment Clinical Notes Dec, Other spondylosis with radiculopathy, lumbar region (ICD-10 - M47.26) [facility] Other 06-16-2022 Evaluation note* Encounter Date Diagnosis [...] M20.42) Dec, Foot deformity (ICD-10 - M21.969) [facility] Other 06-08-2022 Evaluation note* Encounter Date Diagnosis Assessment Notes Treatment Notes Treatment Clinical Notes Dec, Peripheral edema (ICD-10 - R60.9) [facility] Other 06-06-2022 Evaluation note* Encounter Date Diagnosis Assessment Notes Treatment Notes Treatment Clinical Notes Dec, History of colon polyps (ICD-10 - Z86.010) Dec, Irritable bowel syndrome with diarrhea (ICD-10 - K58.0) MAY USE IMODIUM NEEDED PT TO REPORT PROGRESS [facility] Other 05-02-2022 Evaluation note* Encounter Date Diagnosis Assessment Notes Treatment Notes Treatment Clinical Notes November, Cystitis (ICD-10 - N30.90) [facility] Other 03-22-2022 Evaluation note* Encounter Date Diagnosis [...] when she came home from traveling from [place] last week she had congestion and was coughing alot, she had alot of irritation in her throat and the back of her throat. She feels like someone put a bullet in her throat. She took a decongestant yesterday and feels better today. 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 I did recommend that she [...] that she was able to travel to [place] last week on her own for the first time by herself with her back issues and did well. She did have to use a wheelchair. She did need a wheelchair while in the airport. An [place] report was reviewed, no discrepancies noted. Frequent appointments needed due to addiction potential. She has not gone to the [facility]. She voices that she never got a call back from that center and did not pursue this because she got involved with a urologist then developed bowel issues. She voices that she will follow up with the [facility] and Dr. Regan for this issue. [...] Sep, Other 2:54 PM - 3:20 PM [facility] Other 03-21-2022 Evaluation note* Encounter Date Diagnosis Assessment Notes Treatment Notes Treatment Clinical Notes Sep, Cough (ICD-10 - R05.9) [facility] Other 03-03-2022 Evaluation note* Encounter Date Diagnosis [...] I did recommend that she see a deputy commissioner for evaluation to discuss these issues further, [...] She agrees but she is going to [place] on 09-19-21 and will not return until [...] with the Imodium until she returns from [place] and is seen by Dr. Milner. She [...] Sep, Other 9:29 AM - 9:49 AM [facility] Other 01-05-2022 Evaluation note* Encounter Date Diagnosis Assessment Notes Treatment Notes Treatment Clinical Notes Jul, Neuropathy (ICD-10 - G62.9) [facility] Other 12-06-2021 Evaluation note* Encounter Date Diagnosis [...] refer her to the spine center in [place] but she did not pursue this. We [...] - N30.90) She currently follows with a docketing specialist. She also saw Dr. Redding for evaluation and he did a procedure on her bladder to help with bladder leakage, she was supposed to see him again but he was sick so she is trying to get in to see either him or another doctor such as Dr. Peterson or Dr. Gleason, she does not want to see his PA or CAGE CLERK. She gets a pain in her vaginal area, describes it as a cut but now it feels as if it is going up higher. When she went to vinyl flooring installer scientology yesterday she felt like someone cut [...] Jun, Other 2:53 PM - 3:23 PM [facility] Other 10-12-2021 Evaluation note* Encounter Date Diagnosis Assessment Notes Treatment Notes Treatment Clinical Notes Apr, Neuropathy (ICD-10 - G62.9) [facility] Other 09-22-2021 Evaluation note* Encounter Date Diagnosis [...] Regan is referring her to the [facility] spine center and she is seeing [...] the kidneys. She has never seen a hall porter before. Her BUN is 40. Creatinine is [...] 6.2. We discussed referring her to a sulfonator operator for evaluation and to discuss this further but instead we will repeat lab in one month and if her level is this high or higher then we will do a referral through the [facility] in [place]. Mar, Knee pain (ICD-10 - M25.569) She [...] to continue with what she is doing. [facility] Other Evaluation + Plan note Future Appointments Appointment Date:02/24/2024 10:00:00 AM Scheduled Provider:SUSAN RANDOLPH PA-C Location:[facility] Appointment Type:URO Office Visit [facility] evaluation + Plan note Future Appointments Appointment Date:02/14/2025 01:20:00 PM Scheduled Provider:SUSAN RANDOLPH PA-C Location:[facility] Appointment Type:URO Office Visit [facility] evaluation + Plan note Future Appointments Appointment Date:10/27/2025 10:20:00 AM Scheduled Provider:JOSE Stewart APRN, Sujey Lopez Location:[facility] Appointment Type:URO Office Visit [facility] evaluation note* Diagnosis Pain in both knees, unspecified chronicity- Primary [facility] note[facility] InformationNort Vehcon Other evaluation note* Diagnosis Onset Date Resolution Status Abrasion acute Acute hypotension acute Acute UTI acute TIP (acute kidney injury) ac [place] Contusion of leg, right acut e Fall [...] acute Diabetes chronic Hypertension chronic Hypothyroidism chronic [facility] Work Phone: evaluation note* Diagnosis Lymphocytosis- Primary Lymphocytosis (symptomatic) [facility] [place] [facility]* Diagnosis CLL (chronic lymphocytic leukemia) (HCC)- Primary Chronic lymphoid leukemia, without mention of having achieved remission [facility] [place] [facility]* Diagnosis Onset Date Resolution Status Acute UTI acute Chronic back pain acute Depression acute Diabetic neuropathy acute Fall acute Hematoma of right lower leg acute Impaired mobility and activities of daily living acute Minor closed head injury acu te Right wrist fracture acute Diabetes chronic Hypertension chronic Hypothyroidism chronic [facility] Work Phone: evaluation note* Diagnosis CLL (chronic lymphocytic leukemia) (HCC)- Primary Chronic lymphoid leukemia, without mention of having achieved remission Right ear pain Otalgia, unspecified Rib pain Chest pain, unspecified Axillary adenopathy Enlargement of lymph nodes Other signs and symptoms in breast Encounter for screening mammogram for malignant neoplasm of breast Other screening mammogram documented [facility] [place] [facility] assessment information [facility] Work Phone: evaluation note* Diagnosis CLL (chronic lymphocytic leukemia) (HCC)- Primary Chronic lymphoid leukemia, without mention of having achieved remission [facility] Diagnosis Onychomycosis- Primary Dermatophytosis of nail 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) Pain in both feet [facility] Diagnosis Onset Date Resolution Status Chronic lymphocytic leukemia acute Cystitis acute Diabetes type 2, uncontrolled acute Lumbar disc disease with radiculopathy acute Neuropathy acute Other abnormal blood chemistry acute Other long term care social worker (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 therapy acute Peripheral edema acute HLD (hyperlipidemia) chronic Hypertension chronic Hypothyroidism chronic Insomnia chronic [facility] Work Phone: Evaluation note* Diagnosis Onset Date Resolution Status Right otitis media acute Cystitis acute Diabetes type 2, uncontrolled acute Other spondylosis with radiculopathy, lumbar region acute Rheumatism acute Insomnia chronic [facility] Work Phone: Evaluation note* Diagnosis Primary osteoarthritis involving multiple joints- Primary Fibromyalgia Mylagia and myositis, unspecified Type 2 diabetes mellitus without complication, with long-term current use of insulin ([facility]) [facility] Diagnosis CLL (chronic lymphocytic leukemia) ([facility])- Primary Chronic lymphoid leukemia, without mention of having achieved remission [facility] Diagnosis Cognitive impairment- Primary Unspecified persistent mental disorders due to conditions classified elsewhere Long-term use of high-risk medication documented in this encounter [facility]* Diagnosis Diarrhea, unspecified type- Primary Constipation, unspecified constipation type documented in this encounter [facility]* Diagnosis Memory loss- Primary Concentration deficit Word finding difficulty Other chronic pain Family history of dementia Family history of other neurological diseases documented in this encounter [facility]* Diagnosis Cognitive impairment- Primary Unspecified persistent mental disorders due to conditions classified elsewhere documented in this encounter [facility]* Diagnosis Onset Date Resolution Status Admit Date Cystitis acute August 11, 2024 1:16pm Irritable bowel syndrome wit h diarrhea acute August 11 1:16pm Other spondylosis with radiculopathy, lumbar region acute Jul 1:16pm [facility] Work Phone: Evaluation note* Diagnosis Onset [...] 10, 2024 3:41pm Hypothyroidism chronic October 3:41pm [facility] Work Phone: Evaluation note* Diagnosis Fibromyalgia- Primary Mylagia and myositis, unspecified Primary osteoarthritis involving multiple joints Type 2 diabetes mellitus without complication, with long-term current use of insulin (HCC) Long-term use of Plaquenil Encounter for long-term (current) use of other medications [facility] Diagnosis Diarrhea, unspecified type- Primary [...] yearl y Medical History 08-22-2011 Left femur [facility] Medical History - Chest x-ray [facility] Medical History stress test-normal ([facility]) Medical History [...] on polyps - Hospitalization History see above [facility] Other History general Narrative - Reported* Type Description Date Medical History pelvic exam done Medical History 2009 mammogram-normal Medical History 2009 colonoscopy Medical History 2004 CT scan done Medical History 2007 eye exam Medical History Zostavax done Medical History Flu/H1N1 vaccine Medical History mammogram Medical History DEXA scan Medical History Follows with Dr. Roxane rivera y Medical History 08-22-2011 Left femur [facility] Medical History 08-22-2011 Chest x-ray [facility] Medical History stress test-normal ([facility]) Medical History [...] head lacera tion after a fall 01/13/22 [facility] Other history general Narrative - Reported* Type Description Date Medical History pelvic exam done Medical History 2009 mammogram-normal Medical History 2009 colonoscopy Medical History 2004 CT scan done Medical History 2007 eye exam Medical History Zostavax done Medical History Flu/H1N1 vaccine Medical History mammogram Medical History DEXA scan Medical History Follows with Dr. Roxane rivera y Medical History 08-22-2011 Left femur [facility] Medical History 08-22-2011 Chest x-ray [facility] Medical History stress test-normal ([facility]) Medical History Mammogram 2015 - Dr. Fritz Medical History Leukemia Surgical History bilateral inguinal hernia repai r 1982 Surgical History left knee 2000 Surgical History hysterectomy 1985 Surgical History abdominal hernia 1992 Surgical History hernia repair 1997 Surgical History appendectomy 1986 Surgical History right knee replacement (Dr Monique hdz) Surgical History left total knee (Dr Haque) 2-201 2 Surgical History geraldo inguinal hernia repair 1981 Surgical History lt knee 1999 Surgical History right knee replacement- Dr. Shaun hdz Surgical History left total knee-Dr. Haque Surgical History lumbar surgery Dr Frias 03/24/17 Surgical History Colonoscopy, col Bonifacio on polyps - Hospitalization History see above Hospitalization History fx wrist and head lacera tion after a fall 01/13/22 [facility] Other History general Narrative - Reported* Type Description Date Medical History pelvic exam done Medical History 2008 mammogram-normal Medical History 2008 colonoscopy Medical History 2003 CT scan done Medical History 2007 eye exam Medical History Zostavax done Medical History Flu/H1N1 vaccine Medical History mammogram Medical History DEXA scan Medical History Follows with Dr. Betts yearl y Medical History 08-22-2011 Left femur [facility] Medical History 08-22-2011 Chest x-ray [facility] Medical History stress test-normal ([facility]) Medical History Mammogram 2015 - Dr. Fritz Medical History Leukemia Medical History Arthritis Medical History diabetes mallitus Medical History high cholesterol Medical History chronic depression Medical History thyroid disease Surgical History bilateral inguinal hernia repai r 1981 Surgical History left knee 1999 Surgical History hysterectomy 1984 Surgical History abdominal hernia 1992 Surgical History hernia repair 1997 Surgical History appendectomy 1985 Surgical History right knee replacement (Dr Monique hdz) Surgical History left total knee (Dr Haque) 2-201 2 Surgical History geraldo inguinal hernia repair 1981 Surgical History lt knee 1999 Surgical History right knee replacement- Dr. Shaun hdz Surgical History left total knee-Dr. Haque Surgical History lumbar surgery Dr Frias 03/24/17 Surgical History Colonoscopy, col Bonifacio on polyps - Hospitalization History see above Hospitalization History fx wrist and head lacera tion after a fall 01/13/22 [facility] Other Hospital course Narrative No data available for this section [facility] Hospital Discharge [facility] Work Phone: Hospital Discharge instructionsAmbulatory Orders* Referral to Sleep Medicine Time Frame: 02/05/24, Location: None Selected [facility] Work Phone: Hospital Discharge instructionsAmbulatory Orders* Referral to General Surgery Time Frame: 04/05/24, Location: None Selected [facility] Work Phone: Progress note No data available for this section [facility] reason for referral (narrative)* Diagnostic Procedure Only (Routine) Status Reason Specialty Diagnoses / Procedures Referred By Contact Referred To Contact Pending Review Auto-Generated Referral XR IMAGING Diagnoses Pain in both knees, unspecified chronicity Procedures XR PELVIS 1V AP X-RAY PELVIS AP ONLY Dale Espinoza PA-C [address] [place] [address] Xr Imaging * Diagnostic Procedure Only (Routine) Status Reason Specialty Diagnoses / Procedures Referred By Contact Referred To Contact Pending Review Auto-Generated Referral XR IMAGING Diagnoses Pain in both knees, unspecified chronicity Procedures XR KNEE GENERAL 4V AP BOTH/PA BOTH/LAT/MERC BILAT KNEE AP-WGT/LAT/MERCHA NT Dale Espinoza PA-C [address] [place] [address] Xr Imaging [facility] for referral (narrative)* Diagnostic Procedure Only (Routine) - Pending Review Specialty Diagnoses / Procedures Referred By Contac t Referred To Contact BR IMAGING Diagnoses Encounter for screening mammogram for malignant neoplasm of breast Procedures SONYA SCREENING W NEYDA SCREENING DIGITAL BREAST TOMOSYNTHESIS BI SCREENING MAMMOGRAPHY BI 2-VIEW BREAST INC CAD Santos Lares MD [address] [place] [address] [facility] [address] [place] [address] Referral ID Status Reason Start Date Expiration Date Visits Requested Visits Authorized [id number] Pending Review Auto-Generat ed Referral 07/19/2022 08/18/2023 1 1 * Diagnostic Procedure Only (Routine) - Pending Review Specialty Diagnoses / Procedures Referred By Contac t Referred To Contact BR IMAGING Diagnoses Axillary adenopathy Other signs and symptoms in breast Procedures US BREAST LTD LT US BREAST UNI REAL TIME WITH IMAGE LIMITED Santos Lares MD [address] [place] [address] [facility] [address] [place] [address] Referral ID Status Reason Start Date Expiration Date Visits Requested Visits Authorized [id number] Pending Review Auto-Generat ed Referral 07/26/2022 08/18/2023 1 1 * Diagnostic Procedure Only (Routine) - Pending Review Specialty Diagnoses / Procedures Referred By Contac t Referred To Contact XR IMAGING Diagnoses Rib pain Procedures XR RIBS/CHEST 3V AP RIB/OBLS/CXR LEFT RADEX RIBS UNI W/POSTEROANT CH MINIMUM 3 VIEWS Santos Lares MD [address] [place] [address] Xr Imaging Referral ID Status Reason Start Date Expiration Date Visits Requested Visits Authorized [id number] Pending Review Auto-Generat ed Referral 07/19/2022 08/18/2023 1 1 * Consult, Test, Treat (Routine) - Authorized Specialty Diagnoses / Procedures Referred By Contac t Referred To Contact Ent - Otolaryngology Diagnoses Right ear pain Procedures CONSULT TO ENT OFFICE/OUTPATIENT [facility] 60-74 MINUTES Santos Lares MD [address] [place] [address] Referral ID Status Reason Start Date Expiration Date Visits Requested Visits Authorized [id number] Authorized PCP Requested Referral 07/19/2022 07/19/2023 1 1 [facility] for referral (narrative)* Reason appt pt needs cons ult to see Homa Mckeon /Dr. Corea for evaluation of lumbar pain Diagnosis 1 Other spondylosis wi th radiculopathy, lumbar region (M47.26) Referral Organization [facility] e [facility] Referring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
--- NOTE | 2025-04-06 13:05 | PM.CN ---
Consult Note: HPI Data of Consult Patient: known to practice within the last 3 years Consult date: 04/06/25 Requesting Physician: Helen De La Paz NP Primary Care Provider: AYANNA VICENTE Consult Narrative Reason for consult: post scs implant Narrative: Kathy Washburn a pleasant 84 year old female presents for evaluation and management of chronic low back, right hip pain, and RLE pain. Recently underwent scs placement is moderate improvement ongoing, continues to endorse right anterior thigh pain and is working with [facility] to adjust stimulator coverage. Pain today 4/10 sharp with numbness to right thigh. Denies falls/injury since last visit. utilizing Lyrica 225mg BID and Percocet 5-325mg TID PRN moderate to severe pain with benefit without side effects. cc:: CC: Helen De La Paz NP [facility] Medical History (Updated 03/16/25 @ 08:31 by Zoila Valladares NP) Post laminectomy syndrome ?M96.1 - Postlaminectomy syndrome, not elsewhere classified (ICD-10) Failed back syndrome ?M96.1 - Postlaminectomy syndrome, not elsewhere classified (ICD-10) History of blood transfusion ?Z92.89 - Personal history of other medical treatment (ICD-10) Chronic kidney disease ?N18.9 - Chronic kidney disease, unspecified (ICD-10) Extremity edema ?R60.0 - Localized edema (ICD-10) Activity intolerance ?R68.89 - Other general symptoms and signs (ICD-10) Fibromyalgia ?M79.7 - Fibromyalgia (ICD-10) Irritable bowel syndrome with diarrhea ?K58.0 - Irritable bowel syndrome with diarrhea (ICD-10) Leukocytosis ?D72.829 - Elevated white blood cell count, unspecified (ICD-10) Leukemia ?C95.90 - Leukemia, unspecified not having achieved remission (ICD-10) Lung nodule ?R91.1 - Solitary pulmonary nodule (ICD-10) Migraine ?G43.909 - Migraine, unspecified, not intractable, without status migrainosus (ICD-10) Insomnia ?G47.00 - Insomnia, unspecified (ICD-10) Depression ?F32.A - Depression, unspecified (ICD-10) Hypothyroidism (acquired) ?E03.9 - Hypothyroidism, unspecified (ICD-10) Chronic back pain ?M54.9 - Dorsalgia, unspecified (ICD-10) ?G89.29 - Other chronic pain (ICD-10) Hyperlipidemia ?E78.5 - Hyperlipidemia, unspecified (ICD-10) Anemia ?D64.9 - Anemia, unspecified (ICD-10) Osteoarthritis ?M19.90 - Unspecified osteoarthritis, unspecified site (ICD-10) Chronic lymphocytic leukemia ?C91.10 - Chronic lymphocytic leukemia of B-cell type not having achieved remission (ICD-10) Diabetes ?E11.9 - Type 2 diabetes mellitus without complications (ICD-10) Former smoker ?Z87.891 - Personal history of nicotine dependence (ICD-10) High cholesterol ?E78.00 - Pure hypercholesterolemia, unspecified (ICD-10) Hypertension ?I10 - Essential (primary) hypertension (ICD-10) Surgical History History of radiofrequency ablation (RFA) of nerve of lumbar spine ?Z98.890 - Other specified postprocedural states (ICD-10) S/P epidural steroid injection ?Z92.241 - Personal history of systemic steroid therapy (ICD-10) History of cataract extraction with lens replacement History of appendectomy ?Z90.49 - Acquired absence of other specified parts of digestive tract (ICD-10) H/O colonoscopy ?Z98.890 - Other specified postprocedural states (ICD-10) History of total knee arthroplasty ?Z96.659 - Presence of unspecified artificial knee joint (ICD-10) History of hernia repair ?Z98.890 - Other specified postprocedural states (ICD-10) ?Z87.19 - Personal history of other diseases of the digestive system (ICD-10) S/P lumbar fusion ?Z98.1 - Arthrodesis status (ICD-10) S/P hernia surgery ?Z98.890 - Other specified postprocedural states (ICD-10) ?Z87.19 - Personal history of other diseases of the digestive system (ICD-10) H/O: hysterectomy ?Z90.710 - Acquired absence of both cervix and uterus (ICD-10) Family History Other Family history of Parkinson disease Family history of cancer Family history of hypertension Family history of myocardial infarction Family history of stroke Heart disease Social History Within the past year, how often did you have a drink containing alcohol: monthly or less Smoking status: Never smoker Non-prescribed substance use: denies use Highest level of school completed/degree received: high school graduate Little interest or pleasure in doing things: not at all Feeling down, depressed, or hopeless: not at all Meds Home Medications and Allergies Home Medications ?Medication ?Instructions ?Recorded ?Confirmed ?Type B-complex with vitamin C 1 tab PO DAILY 08/25/23 03/21/25 History aspirin 81 mg tablet,delayed 81 mg PO DAILY 08/25/23 03/21/25 History release atorvastatin 20 mg tablet (Lipitor) 20 mg PO DAILY 08/25/23 03/21/25 History cholecalciferol (vitamin D3) 125 125 mcg PO DAILY 08/25/23 03/21/25 History mcg (5,000 unit) capsule ezetimibe 10 mg tablet (Zetia) 10 mg PO DAILY 08/25/23 03/21/25 History levothyroxine 100 mcg tablet 100 mcg PO DAILY 08/25/23 03/21/25 History (Synthroid) lisinopril 10 mg tablet 10 mg PO DAILY 08/25/23 03/21/25 History multivitamin 1 tab PO DAILY 08/25/23 03/21/25 History oxycodone-acetaminophen 5 mg-325 1 tab PO BID PRN pain 08/25/23 03/21/25 History mg tablet pregabalin 225 mg capsule (Lyrica) 225 mg PO BID 08/25/23 03/21/25 History propranolol 60 mg tablet 60 mg PO DAILY 08/25/23 03/21/25 History triamterene 37.5 1 tab PO DAILY 08/25/23 03/16/25 History mg-hydrochlorothiazide 25 mg tablet (Maxzide-25mg) venlafaxine 75 mg capsule,extended 75 mg PO DAILY 08/25/23 03/21/25 History release 24 hr (Effexor XR) zolpidem 5 mg tablet 5 mg PO DAILY 08/25/23 03/21/25 History insulin glargine 100 unit/mL (3 36 unit subcut QPM 02/09/25 03/21/25 History mL) subcutaneous pen (Lantus Solostar U-100 Insulin) magnesium oxide 400 mg (241.3 mg 400 mg PO DAILY 02/09/25 03/21/25 History magnesium) tablet metformin 1,000 mg tablet 1,000 mg PO BID 03/16/25 03/21/25 History clindamycin HCl 300 mg capsule 300 mg PO BID #14 caps 03/21/25 Rx Allergies Allergy/AdvReac Type Severity Reaction Status Date / Time cefpodoxime (From Vantin) Allergy Unknown Unknown Verified 03/16/25 08:24 Exam Constitutional Documenting provider has reviewed patient's vital signs: yes Common normals: no apparent distress, oriented x3, healthy appearing, alert and well nourished General appearance: cooperative HENMT Common normals: normocephalic, hearing grossly normal bilaterally and moist oral mucous membranes Head and scalp: normocephalic Eye Common normals: PERRL Pupil: PERRL Neck & C-Spine Common normals: full ROM General: normal visual inspection Chest Common normals: inspection of chest normal Respiratory Common normals: normal respiratory effort, no retractions and no use of accessory muscles Back & Pelvis Lumbar spine/lower back: ROM not limited, no pain with ROM and straight leg raise positive Other: negative facet loading nontender over lumbar facets nontender over right PSIS or right GTB Neuro Common normals: oriented x3 Sensorium/orientation: alert Psych Common normals: mental status grossly normal, thought process normal, cooperative, affect normal, speech normal and activity/motor behavior normal Speech: normal speech Thought process: normal thought process Results Additional Findings Additional findings: If on a controlled substance or opioids, I have checked an [place] report on this patient and there are no aberrancies noted in the prescribing history.??If on a controlled substance or opioid a drug screen was completed and reviewed within the last year, and if there has not been a drug screen completed we ordered one today to monitor higher risk, state monitored pain medication use. As part of providing excellent, safe, comprehensive care, the following was completed at our patient's visit: 1. A medication reconciliation and review to ensure accurate knowledge of current/active medications, including asking our patients to inform us about any [id number] medications or herbal remedies/nutritional supplements/alternative remedies. 2. A review to specifically ensure our patients have had annual screening for screening for depression, screening for tobacco use, and screening for unhealthy alcohol use. For concerning screenings had a discussion with the patient, provided patient education, and recommended follow-up with primary care provider when appropriate. If patient noted with a risk of falling, they received education on strength, gait, and balance training to prevent future risk of falling. Portions of this note may have been carried over from the previous visit and updated as appropriate. Please note this office utilizes paper charting in addition to the electronic medical record. A list of current medications, vitals, and PMH is available there as the clinical staff outside of myself do not have access to [facility] charting during the clinic day operations. As part of providing quality comprehensive care the current medications, vitals, and PMH were reviewed in the paper chart. Assessment and Plan Assessment and Plan (1) Failed back syndrome: Assessment and Plan: 03/21/25 scs implant (2) Lumbar spondylosis: (3) Sacroiliitis: Plan status post stimulator implant with significant improvement in pain and quality of life. advised pt to talk with PCP about improvement in pain and consider reduction in medications after valorie from [facility] adjusted her program settings today she noted significant relief in pain, especially with standing/walking f/u in clinic for evaluation as planned
== END 2025-04-06 12:47 | disposition home or self-care (01) ==
LOC: PM 12:46
PROVIDERS: PCP Family Medicine; Visit Provider Nurse Practitioner
DX: M96.1 Postlaminectomy syndrome, not elsewhere classified (principal); M47.816 Spondylosis without myelopathy or radiculopathy, lumbar region; M46.1 Sacroiliitis, not elsewhere classified
CPT/HCPCS: G0463

== ENCOUNTER 2025-05-12 08:43 | Outpatient (OUT) | payer MEDICARE, SELFPAY ==
--- OUTSIDE RECORDS SUMMARY | 2025-04-28 08:27 | XMS_ITS | Continuity of Care Document ---
Author Organization [facility] Address [address] [place] [address] Phone Care Team Providers Care Fractionation Supervisor Name Role Phone Sakina Dmitriy WISDOM Primary Care Provider Som Azul MD Attending Provider Dmitriy Presley DO Attending Provider Mckenzie Christopher APRN Attending Provider Care Teams Patient Care Team Team Status: Active Member Role Status Dates Dmitriy Presley DO Primary Care Provider Active Visit Care Team Team Status: Active Member Role Status Dates Dmitriy Presley DO Primary Care Provider Active S tart: February 09, 2025 Laureen Parmar ProviderActiveStart: February 09, 2025 Visit Care Team Team Status: Inactive Member Role Status Dates Dmitriy Presley DO Primary Care Provider Active S tart: February 15, 2025 End: February 15, 2025Daperi Presley DOAttfiliberto ProviderActiveStart: February 15, 2025 End: February 15, 2025 Visit Care Team Team Status: Active Member Role Status Kayla Presley DO Primary Care Provider Active S tart: March 16, 2025 Laureen Parmar ProviderActiveStart: March 16, 2025 Visit Care Team Team Status: Inactive Member Role Status Kayla Presley DO Primary Care Provider Active S tart: April 26, 2025 End: April 26Héctor Ortiz ProviderActiveStart: April 26, 2025 End: April 26, 2025 Visit Care Team Team Status: Inactive Member Role Status Dates Dmitriy Presley DO Primary Care Provider Active S tart: April 26, 2025 End: April 26Héctor Ortiz ProviderActiveStart: April 26, 2025 End: April 26, 2025 Patient Care Team Team Status: Inactive Member Role Status Dates Dmitriy Presley DO Primary Care Provider Active S tart: April 28, 2025 End: April 28, 2025Daperi Presley DOAttending ProviderActiveStart: April 28, 2025 End: April 28, 2025 Chief Complaint and Reason for Visit Chief Complaint Admit Date med refill February 15, 2025 2:4 3pm cough, congestion April 26, 2025 1 :42pm UC f/u bronchitis April 28, 2025 1 1:49am Reason for Visit Admit Date Hydradenitis February 15, 2025 2:4 3pm Lumbar degenerative disc disease February 15, 2025 2:43pm Neuropathy February 15, 2025 2:4 3pm Overactive bladder February 15, 2025 2:4 3pm Diabetes February 15, 2025 2:4 3pm Bronchiolitis April 26, 2025 1 :42pm Fatigue April 28, 2025 1 1:49am Bronchiolitis April 28, 2025 1 1:49am Allergies, Adverse Reactions, Alerts Allergen Type Severity Reaction Last Updated Verified Status Comments bacitracin Allergy Unknown Unknown Reaction April 28, 2025 11:53am Yes Active cefpodoximeAllergyUnknownUnknown ReactionOctriver [facility] 2024 11:53amYesActive CephalosporinsAllergyUnknownSwelling of Lip/Tongue/ThroatOctober 2024 11:53amYesActiveEyes swelled alsoneomycinAllergyUnknownUnknown ReactionOctober 2024 11:53amYesActivepolymyxin BAllergyUnknownUnknown ReactionOctriver valley behavioral health hospital 2024 11:53amYesActive Social History Smoking Status Status Start Date End Date Date of Observa tion Ex-smoker (finding) December 16, 2024 2:39pm Observation Status Observation Response Date of Response Legal Sex Female (finding) Sex Assigned At BirthFemaleDecember 1939 Family History Relationship Condition Age at Onset Recorded Date/T maria g Not Specified History of inguinal hernia repair Unknow n DementiaUnknownInguinal herniaUnknownbrotherParkinson's diseaseUnknownfather Heart diseaseUnknownDeceasedUnknownFamily history of mental disorderUnknown grandparentDeceasedUnknowngrandparentDeceasedUnknowngrandparentDeceasedUnknown grandparentDeceasedUnknownmotherDeceasedUnknownMalignant neoplasmUnknownFamily history of mental disorderUnknownsisterDeceasedUnknown Problems Active Problems Medical Problem Onset Date Status Comments Chronic kidney disease, stage 3b Unknown Active Acute hypotensionUnknownActiveHematoma of right lower legUnknownActiveInsomnia UnknownActiveType 2 diabetes mellitus with diabetic chronic kidney disease UnknownActiveOther terminal carman (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 therapyUnknownActiveLumbar and sacral spondylarthritisUnknownActiveLumbar and sacral spondylarthritisUnknown ActiveRight wrist fractureUnknownActiveHistory of lumbosacral spine surgery UnknownActiveImpaired mobility and activities of daily livingUnknownActiveLumbar back painUnknownActiveOther spondylosis with radiculopathy, lumbar regionUnknown ActiveDiabetic neuropathyUnknownActiveOnychomycosisUnknownActiveFatigueUnknown ActiveDiabetesUnknownActiveDiabetesUnknownActiveOveractive bladderUnknownActive Premature beatUnknownActiveFoot deformityUnknownActiveChronic lymphocytic leukemiaUnknownActiveAnemiaUnknownActiveChronic insomniaUnknownActive Hypertensive chronic 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 4 chronic kidney disease, or unspecified chronic kidney diseaseUnknownActiveDepressionUnknown ActiveHLD (hyperlipidemia)UnknownActiveHypothyroidismUnknownActiveDiabetes type 2, uncontrolledUnknownActiveOther abnormal blood chemistryUnknownActive Peripheral neuropathyUnknownActiveNeuropathyUnknownActiveRheumatismUnknownActive Postoperative painUnknownActiveLumbar degenerative disc diseaseUnknownActive Lumbar and sacral osteoarthritisUnknownActiveLumbar adjacent segment disease with spondylolisthesisUnknownActiveMemory changesUnknownActiveBMI 32.0-32.9,adultUnknownActiveIrritable bowel syndrome with diarrheaUnknownActive 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 back painUnknownActiveLumbar disc disease with radiculopathyUnknownActiveKnee pain, leftUnknownActiveAcute UTIUnknownActivePeripheral edemaUnknownActiveMinor closed head injuryUnknownActiveHip pain, leftUnknownActiveLumbar arthropathyUnknown ActiveLumbar disc disorderUnknownActiveAbrasionUnknownActiveRight otitis media UnknownActiveCystitisUnknownActiveHypertensionUnknownActiveHydradenitisUnknown Activeright axillaConstipationUnknownActiveVitamin D deficiencyUnknownActiveFall UnknownActiveContusion of leg, rightUnknownActiveHyperkalemiaUnknownActive Medications Medication Status Dose Units Route Directions Qty Days St art Date Stop Date End Date Instructions Adherence Lisinopril 10 mg tablet Discontinued 0 .ROUTE.FAPFJTC06Zntuy 2023 2:08pmApril 2023 3:51pmTAKE 1 TABLET BY MOUTH DAILYAtorvastatin 20 mg tabletDiscontinued0.ROUTE.IDDXISR83Mbfnx 2023 2:08pmApril 2023 3:22pmTAKE 1 TABLET BY MOUTH DAILYTriamterene- Hydrochlorothiazid 37.5-25 mg tabletDiscontinued0.ROUTE.CLDTDTO19Jnryy 2023 2:09pmOctober 2023 4:16pmTAKE 1/2 (ONE-HALF) OF A TABLET BY MOUTH DAILY Ciprofloxacin Hcl 500 mg xywlwrVjpsibxajhyg206VRESIajle qczcw7126Ixkuk 2023 12:00amApril 2023 9:49amNitrofurantoin Monohyd/M-Cryst (Macrobid) 100 mg atgpqzkPbktstquemmk686RQODAouad svfsn37Dbjvr 2023 12:00amApril 2023 4:08pmmust administer with a meal/foodInsulin Glargine (Lantus Solostar U-100 Insulin) 100 unit/mL (3 mL) insulin penDiscontinued0.ROUTE.SJLLVVK33Jylfc 2023 2:21pmApril 2023 3:51pmINJECT 46 UNITS SUBCUTANEOUSLY AT BEDTIME Nitrofurantoin Monohyd/M-Cryst (Macrobid) 100 mg pinbydqGgnpnaleggxp656LTSPQdtks crsjs72Ktxut 2023 4:08pmJuly 2023 2:24pmmust administer with a meal/foodCiprofloxacin Hcl (Cipro) 250 mg jbkmbcTbrddfkgvqpd986BUQUHqqeo daily10 5July 2023 12:00amAugust 2023 2:47pmInsulin Glargine (Lantus Solostar U-100 Insulin) 100 unit/mL (3 mL) insulin pmvEowaitjgkmvb11LETQLHBJRD Every eveningJuly 2023 3:07pmJuly 2024 4:37pmCiprofloxacin Hcl (Cipro) 500 mg rlgcwkKxqvdpwbfvtr492VASTAdnbk sarkc821Miuqrolio 4th, 2024 12:00amSeptember 2023 9:57amPregabalin (Lyrica) 225 mg capsuleDiscontinued 225MGPOTwice tscug57820Yulubjbhz 17th, 2024 10:01amMarch 2024 4:44pm Ezetimibe 10 mg tabletDiscontinued0.ROUTE.ZNPEBDC97Tqsuidzso 17th, 2024 10:02am April 01, 2025 7:40amTAKE 1 TABLET BY MOUTH ONCE DAILYLevothyroxine 100 mcg tushfdRgcnnokormvh415STBDKHjotbYbqrsqn 2023 3:57pmOctober 2023 4:18pmTAKE 1 TABLET BY MOUTH EVERY MORNING ON AN EMPTY STOMACH DO NOT EAT OR DRINK FOR 30-45 MIN AFTER TAKINGPropranolol 60 mg capsule,extended release 24 hr Lvopvdjyydlv26OEURPqmqa40Vvxvmlh 2023 4:14pmSept2024 7:40am FreeTextSig: TAKE 1 CAPSULE BY MOUTH DAILY; Note: Source Status: Taking; Provider: Sakina Izaguirre ( )Metformin 1,000 mg tabletDiscontinued 1000MGPOTwice xzpeq165Pyninpq 2023 4:15pmJuly 2024 2:23pmLisinopril 10 mg bpyedvXfsxjssgembp98XGFIKdkxh39Wxufhij 2023 4:15pmSeptember 2024 7:40amAtorvastatin 20 mg vtavwcKeolxcygyefm15GZBEPtpwd29Yisedoj 7th, 2024 4:15pmSeptember 2024 7:40amTriamterene-Hydrochlorothiazid 37.5-25 mg tabletDiscontinued0.ROUTE.ZTVQTQQ01Gfnbpnh 7th, 2024 4:16pmJune 2024 2:38pm TAKE 1/2 (ONE-HALF) OF A TABLET BY MOUTH DAILYLevothyroxine 100 mcg tablet Oofuucvdeccj792SZGDHSwmbz85Ytldxuh 7th, 2024 4:18pmSeptember 2024 7:40am TAKE 1 TABLET BY MOUTH EVERY MORNING ON AN EMPTY STOMACH DO NOT EAT OR DRINK FOR 30-45 MIN AFTER TAKINGZolpidem 5 mg vgthdkVllhbvbdqnpf7FDLPVtaih at rhsbcvk2974 May 07, 2024 1:01pmApril 2024 8:03amCiprofloxacin Hcl (Cipro) 500 mg gorsuuCjpsipayhseh976CUQLWjsfw ldxrn460Dscwzifq 6th, 2024 9:54amJanuary 2024 2:38pmVenlafaxine 75 mg capsule,extended release 86prFofoxxsaqrth6.ROUTE .VCJEOMW40Ucgkutyb 26th, 2024 1:36pmJune 2024 2:38pmTAKE 1 CAPSULE BY MOUTH EVERY DAY WITH FOODPregabalin (Lyrica) 225 mg lrlntvcAneigxiakcam632UBQXXxdxs jrsuj32182Gylya 2024 4:43pmAugust 2024 3:11pmZolpidem 5 mg tablet Pztqjj0DNPQIbipl at stdgzpy2616Wgihc 17th, 2025 8:03amComplies with drug therapy Insulin Glargine (Lantus Solostar U-100 Insulin) 100 unit/mL (3 mL) insulin pen Qfpdmm27DTDNUWCRMIVdifz bocwjfm6967Ugdm2024 9:44amComplies with drug therapyEzetimibe 10 mg tabletDiscontinued0.ROUTE.FKZIOBH57Ibkuphljf 19th, 2025 7:40amOctober 2024 12:01pmTAKE 1 TABLET BY MOUTH DAILYLevothyroxine 100 mcg tabletDiscontinued0.ROUTE.HUYEXRP75Xbrfkhfja 19th, 2025 7:40amOctober 2024 12:01pmTAKE 1 TABLET BY MOUTH IN THE MORNING ON AN EMPTY STOMACH. Do not eat or drink for 30-45 MINUTES after takingLisinopril 10 mg tabletDiscontinued0 .ROUTE.OPMDNYX65Tbhekhosr 19th, 2025 7:40amOctober 2024 12:01pmTAKE 1 TABLET BY MOUTH DAILYTriamterene-Hydrochlorothiazid 37.5-25 mg tabletActive0 .ROUTE.KFWNVSB92Svwoqqzou 19th, 2025 7:40amTAKE 1/2 (ONE-HALF) OF A TABLET BY MOUTH DAILYComplies with drug therapyPropranolol 60 mg capsule,extended release 24 hrDiscontinued0.ROUTE.QCNEODL92MjuftjblkApril 01, 2025 7:40amOctober 2024 12:01pmTAKE 1 CAPSULE BY MOUTH DAILYAtorvastatin 20 mg tabletDiscontinued0.ROUTE .ZVBJTBD87QexhvfefkApril 01, 2025 7:40amOctriver valley behavioral [facility] hospital 2024 12:01pmTAKE 1 TABLET BY MOUTH DAILYPregabalin (Lyrica) 150 mg pvpwijrFzppck494PGFJJyokc cblgt52050 April 01, 2025 9:46amComplies with drug therapyMetformin 500 mg tablet Ckicun263LLBSZdkxl ivtrm032Eqlqctsqk 19th, 2025 9:54amComplies with drug therapy Doxycycline Hyclate 100 mg xmyxezwYxprcz390ZXPKOaags ijmjf5834JykfkihApril 28, 2025 12:00amComplies with drug therapyOxycodone-Acetaminophen (Percocet) 5-325 mg oyavvpMsarov1TMPYC.DMLMGPR0084Oarckqd 16th, 20251 tab orally one to two times a day as neededComplies with drug therapyHydroxychloroquine 200 mg Tablet Bqugrxiofmtm524CAQYpgovnTnqrce 2016 12:00amSept2016 9:58am Oxycodone-Acetaminophen 5-325 mg IdmdvdZldpuarlhzpx9TTKNVHBRMT 4-6 HOURS as needed for PainAugust 2016 12:[facility]2016 9:59amMetformin 1,000 mg SqbwzaXphrqtrebrmk8310EXUZVkqxr dailyAugus2016 12:[facility] 2016 9:58amEzetimibe (Zetia) 10 mg RjuhexTnmympyleoxw38YGXIttnpoAvilkw 31st, 2017 12:[facility]2016 9:58amPregabalin (Lyrica) 225 mg Capsule Dexgqebjzaxy255UGWSVcsro dailyMarch 13, 2017 12:[facility] 2016 9:59amInsulin Glargine (Lantus Solostar U-100 Insulin) 100 unit/mL (3 mL) Insulin TanQbfshqowhxoz05SSNQXPWVLJZxikx at bedtimeFauquier [facility]2016 12:00am April 02, 2017 9:58amPropranolol 60 mg Capsule,Extended Release 24 Hr Gtlgxbwvflej24DEIBUnnpc with supperAugust 2016 12:[facility]2016 9:59amAtorvastatin 20 mg BrlspqXebymxktcouz77VJIBIazntffSzcvct 31st, 2017 12:[facility]2016 9:58amMultivitamin (Multiple Vitamins) Tablet Izrfjzchitlv5MOHKQDpsjsPgabpg 31st, 2017 12:[facility]2016 9:59am Citalopram 40 mg KgcpxrApglqsnoijcr59BMSUmkjfhElbdbo 31st, 2017 12:[facility] 2016 9:58amCalcium Carbonate-Vitamin D3 (Calcium 600 + D(3)) 600 mg(1,500mg) -200 unit PrivsjAhlzogkxkbnf1HFKMDcawvbIhcifl 31st, 2017 12:00am April 02, 2017 9:58amLevothyroxine 75 mcg BacfevLmgqoufkxmbo98JFUUHihfpd March 13, 2017 12:[facility] 2016 9:58amLisinopril 10 mg Tablet Unjexeiehdbq36JMWBovadqMzsbzi 2016 12:[facility] 2016 9:59am Triamterene-Hydrochlorothiazid 37.5-25 mg KusnfrXbpbzdiwceve1OBIAKAycerZmwclg 2016 12:[facility]2016 9:59amFurosemide 20 mg TabletDiscontinued 20MGPOdailyAugust 2016 12:2016 9:58amZolpidem 5 mg DdbpzuPywwtpixnkrr5RABVDsjjwghGolyvj 2016 12:[facility]2016 9:59amAspirin 81 mg Tablet,CtcvmvrdIloskxdbniyt47MOPKMsaleLosxlt 2016 12:[facility]2016 9:58amSennosides-Docusate Sodium (Dok Plus) 8.6-50 mg WsgenfBmvgdbawjgri5PSPGLPxuyp oscjq0882Xhyulnalw2016 12:[facility]2016 9:59amOxycodone-Acetaminophen 5-325 mg NowvemEuvbpkydhgum7BZHXBO7U as needed for Pain Scale 1 - 60955Aduogjxqn2016 12:2016 9:59amFentanyl 25 mcg/hr Patch 72 NvusDvpzitfjoelr79GJDUWYJRJCYRDXfqdz 72 hours5 2016 12:[facility]2016 9:58amFerrous Sulfate 324 mg (65 mg iron) Tablet,Delayed Release (Dr/Ec)Cynlxqiskucx421IFCCAzhkd whsjb2428 March 26, 2017 12:[facility]2016 9:58amSulfamethoxazole- Trimethoprim (Bactrim Ds) 800-160 mg opztduIyylhpobchvi3LDIJWPyuhi daily14 March 26, 2017 12:[facility]2016 9:59amMetformin 500 mg Tablet Fqrsntvnoahq9254KFQVAfaxb daily with bmrvh93Pbtscssfn2016 12:00amJuly 2021 3:09pmSennosides (Senna Lax) 8.6 mg VrciunKvfyqjvnqnbx5NPMEKKWPBEI@12 as needed for If no BM in 2 bspp58Gpuxhpnjq2016 12:00amJuly 2021 4:47pmAcetaminophen 325 mg UjqqbhBpazjoxtdwez859FUUXY1Q as needed for Pain30 April 02, 2017 12:00amJu2021 4:42pmAcetaminophen 325 mg Tablet Sncegfcleqnx710EIUCU3K as needed for Wacc11Vlqvnrzsz2016 12:002021 4:42pmAtorvastatin 20 mg UyqxfzZqugqmfvzrkj04JKAPWfyto iqenldq68Zexhzfxgx2016 12:002021 4:48pmCitalopram 40 mg SwsmpgTdhhbnuykreb93BLWN Every ziqbazj99Azymegeqx2016 12:002021 4:43pmHydrocodone- Acetaminophen 5-325 mg MekbsaIwtyrcscdtcg0SMRCRP8G as needed for Severe PainApril 02, 2017 12:002021 11:19amHydrocodone-Acetaminophen 5- 325 mg LgmkipRgcnjqjtdupn9XDSXFS1Y as needed for Bukp62Bziilhcjx2016 12:002021 4:44pmPropranolol (Inderal La) 60 mg Capsule,Extended Release 24 GnRfrqpgcxguzf23GECUVlkac with jabctm85Ddnhtrggf2016 12:00am January 13, 2022 4:46pmSulfamethoxazole-Trimethoprim 800-160 mg TabletDiscontinued 1TABPOTwice aahso8Gwmaouidz2016 12:002021 4:47pmLevothyroxine (Synthroid) 75 mcg CdttctPurbdhssjknq74GLGRKZdrot at 463213QnmlnnjpfApril 02, 2017 12:002021 3:09pmLisinopril 10 mg KhaujaUtwzvvtusakv57TIQJLdiwa72 April 02, 2017 12:00Ju2021 3:09pmLidocaine 5 % Adhesive Patch,LeazayrjwVchojbgmidxo8SRLZGVMKFMAUrruh99Xhokfmmgq 20th, 2017 12:002021 4:45pmDocusate Sodium 100 mg WzsjtqyNywjsquybnxr687CTLHHngpp daily60 April 02, 2017 12:002021 4:43pmTriamterene-Hydrochlorothiazid 37.5-25 mg TabletDiscontinued0.5TABPOEvery njfiuya50Bmsoobanw2016 12:00am January 13, 2022 4:48pmAspirin 81 mg Tablet,MadxvgncOcialmjwohzt42NXVBJubpt22 April 02, 2017 12:00Ju 2021 3:09pmZolpidem 5 mg Tablet Kzgnbdsiblxo8SKHHNddng at bedtime as needed for Ecdfr64Avppdbhot2016 12:00[facility] 2021 4:48pmFurosemide 20 mg YlomagAykbqhkrcemx77DOVRJnrve at 944833Rzjjwoeem2016 12:00am[facility] 2021 4:48pmHydroxychloroquine 200 mg WsoybyYdiyaaqtmxub618DIHQRpfsc31Ixterlazb 20th, 2017 12:00[facility] 2021 4:45pmEzetimibe (Zetia) 10 mg UoaxheBjtohdgmpsgu63CODXIbffphg61Ggetgpuai 20th, 2017 12:00[facility] 2021 3:09pmCyclobenzaprine 5 mg QltpzwYjbaioasautx4VPGU Q8H as needed for Muscle Ktpyr05Ktfdoinqx2016 12:00[facility] 2021 4:43pmCalcium Carbonate-Vitamin D3 (Oyster Shell Calcium-Vit D3) 500 mg(1,250mg) -200 unit RuegjfXvvfplhyvqbb4OGIAIHvgnf drynujq90Mxeihwnnu2016 12:00am January 24, 2022 3:09pmPregabalin (Lyrica) 75 mg DmpwfhlJiujsafvsdyh216SPFJApypq uqbel15Pohikhgon2016 12:00[facility] 2021 3:09pmInsulin Detemir U-100 (Levemir Flextouch U100 Insulin) 100 unit/mL (3 mL) Insulin SofHfgzdzemstzq08 UNITSUBCUTDaily at susqpha667Pndrgorty2016 12:00Oct[facility] 2016 12:[facility] 2016 12:03amFerrous Sulfate 324 mg (65 mg iron) Tablet,Delayed Release (Dr/Ec)Wjcccjyimbht046VPLXFaegz afwfl51Zlqspqjzr2016 12:00[facility] 2021 4:44pmMultivitamin With Folic Acid (Thera) 400 mcg JwvxurDwjfojfjodxu3QFQRAKysrs54Uukgddntl 2016 12:00amJuly 2021 3:09pmAtorvastatin (Lipitor) 20 mg xasxguLduarqlbdfka94ZXMTVaahg eveningJuly 2021 4:48pmJuly 2021 3:09pmTriamterene-Hydrochlorothiazid (Maxzide- 25mg) 37.5-25 mg tabletDiscontinued0.5TABPOEvery morningJuly 2021 4:48pm January 24, 2022 3:09pmOn Hold: follow on rehab for resumptionZolpidem (Ambien) 5 mg vxjbkrIrniaewzfcec8QXFIIgowa at bedtime as needed for SleepJuly 2021 4:48pmJuly 2021 12:05pmFurosemide 20 mg dugholDxnhpylmcdca79DIDQWwxsv at 0800July 2021 4:48pmJuly 2021 12:05pmInsulin Glargine 100 unit/mL ZgvrkascnEijmfldtgewn31OIWJVMAJIUCzwaq at bedtimeJuly 2021 12:00amJuly 2021 3:09pmVenlafaxine 75 mg capsule,extended release 09qhKjaiakilsskf07JD PODailyJuly 2021 12:00amJuly 2021 3:09pmOxycodone-Acetaminophen 5-325 mg xsquhzWpqdhtmclhjc1QJYJKNcvvr as needed for PainJuly 2021 12:00amJuly 2021 3:09pmAcetaminophen 325 mg UtkhmePtmmttdamzlz456NWOHM6H as needed for Pain Scale 1 - 3 or fsbrs5Umvi 2021 12:00amJuly 2021 3:09pmTramadol 50 mg GldxenJgitvlcdtkjn76VRKVP6U as needed for Pain Scale 4 - 70July 2021 12:00amJuly 2021 5:36pmMelatonin 5 mg PoafloSgbqrphsspwj04YIDHKyoqp at uqznjdh6Hqya 2021 12:00amJuly 2021 3:09pmInsulin Aspart U-100 (Novolog Flexpen U-100 Insulin) 100 unit/mL (3 mL) Insulin LfdJobzhfcoxiyw9RMQJU GLZHCY3N/Day with meals and qifaugq1Vyks 2021 12:00amJuly 2021 5:37pm Levofloxacin 750 mg gvjiecKtwfemfcdxjf486RRAYPxoqd26Yeqw 2021 12:00amJuly 2021 3:09pmnext dose 7/7Insulin Aspart U-100 (Novolog Flexpen U-100 Insulin) 100 unit/mL (3 mL) insulin cuxPleyyvlsujsa6ELKTUDSCKJB9W/Day with meals and bedtime Protocol: If the [...] than or = 400 mg/dL Dose/Route: 16 unitJuly 2021 5:37pmJuly 2021 3:09pmPlease contact the information source for Protocol details.Metformin 500 mg WfvjkzAlshwsxkweky6795 MGPOTwice daily with ldsws60405Kovn 2021 12:00amApril 2023 1:47pm Atorvastatin 20 mg TsvmvwHitefjnrprmk13BMPESkmme lmisnxr6549Cgwf 2021 12:00amApril 2023 2:09pmLevothyroxine 75 mcg DhwllzCeiwrkmuhisw43LVCNGDtaqx at 11184546Xemk 2021 12:00amApril 2023 3:14pmLisinopril 10 mg Tablet Iujuatvjantf92HVLDCctvl0688Xqpn 2021 12:00amApril 2023 2:08pmAspirin (Children's Aspirin) 81 mg Tablet,DrquopfsWymgsq68OSBCEctmy6470Vnzc 2021 12:00amComplies with drug therapyEzetimibe 10 mg BdyoalSnrhqghozpfn12MUCHJhjwwir 3030July 2021 12:00amSeptember 2023 10:03amCalcium Carbonate-Vitamin D3 (Oyster Shell Calcium-Vit D3) 500 mg-5 mcg (200 unit) UfpbtmIsnpyfryyobt9AMS POEvery ozllgpo3581Cjfl 2021 12:00amJune 2024 2:37pmInsulin Detemir U-100 (Levemir Flextouch U-100 Insuln) 100 unit/mL (3 mL) Insulin Pen Cyjabatwpygx12PQXXOFWXLBJMqpea at bedtime7.530July 2021 12:00amApril 2023 3:11pmMelatonin 5 mg GsppbnWqpjeugnllei83SCKYUttlg at xbwwwow5689Kiig 2021 12:00amApril 2023 3:12pmMultivitamin With Folic Acid (Thera) 400 mcg TruehtTqfrme3SWHWSGpxvs2021Knub 2021 12:00amComplies with drug therapy Venlafaxine 75 mg Capsule,Extended Release 28erHrgyinljqvkn35PQRMNgawd0977Yhfm 2021 12:00amDecember 2023 1:36pmOxycodone-Acetaminophen 5-325 mg QyzwoeIulpqdskvzzz2IXTTSV8O as needed for Akqm39Lhou 2021July 2023 9:06amPregabalin 75 mg FcawhgpWfrjuvdnvrqu911WAFYUysyr zmgll37980Fqzq 2021 12:00amApril 2023 2:10pmTrospium 20 mg qozzknOpouhjohhwfc99STWHTtutj daily March 08, 2024 12:00amApril 2024 3:54pmTrospium 20 mg hupjyyBgldws35XN POTwice daily as neededApr2024 3:53pmComplies with drug therapy Oxycodone-Acetaminophen (Percocet) 5-325 mg zyikdjUlmrrkyqdyxo0FRBCV.RPJFHRB5037 May 11, 2024January 2024 2:31pm1 tab orally one to two times a day as neededNitrofurantoin Monohyd/M-Cryst (Macrobid) 100 mg eghjmhyNvwjbkfabutb643 MGPOTwice qegpe395Givjdxy 2023 12:00amJanuary 2024 2:12pmmust administer with a meal/foodCiprofloxacin Hcl (Cipro) 500 mg tabletDiscontinued 500MGPOTwice oqyhg7530Kltqnqxzo 2023 12:00amOctober 2023 2:47pm Dicyclomine 20 mg wnhomlQlemplfvymja63YNFGUrhkf hatcs75Tndmkpdiy 23rd, 2024 12:00amJune 2024 2:37pmMetformin 500 mg vqdcyySpnwtrijcdrd998QHNACuwyi kspgo755Rmpc 2024 2:16pmSeptember 2024 9:54amMagnesium Oxide 400 mg (241.3 mg magnesium) blemcbOtrqhs566BVXORlatc55Vxmz 2024 12:00amComplies with drug therapyMetformin 1,000 mg kgkyqdHuqutbovenwy5887SOTHDllfv dailyApril 2023 12:00amOctober 2023 4:16pmCholecalciferol (Vitamin D3) 125 mcg (5,000 unit) jpillmqEuford4909QRNYPMLi DirectedApril 2023 12:00am FreeTextSig: as directed Orally; Note: Source Status: Taking; Provider: Mike Luther ( )Complies with drug therapyAscorbic Acid (Vitamin C) 500 mg dvvinjLhwufb229HHAWQvodiDrimo 2023 12:00amFreeTextSi tablet Orally Once a day; Note: Source Status: Taking; Provider: Mike Luther (N PI: [id number])Complies with drug therapyLevothyroxine 100 mcg tablet Qyvjwipixaan784EXTRIEcmnq before breakfastApril 2023 12:00amOctober 2023 3:57pmTAKE 1 TABLET BY MOUTH EVERY MORNING ON AN EMPTY STOMACH; Note: Source Status: Taking; Provider: Sakina Izaguirre ( )Propranolol 60 mg capsule,extended release 24 usVurzvlgwtbgk44AXXGSyaozXfwbt 2023 12:00am April 19, 2024 4:16pmFreeTextSig: TAKE 1 CAPSULE BY MOUTH DAILY; Note: Source Status: Taking; Provider: Sakina Izaguirre ( )Atorvastatin 20 mg uiuocuKgmfqoeyfnod55CLPXErlgdOxoho 2023 3:22pmOct2023 4:16pm Insulin Glargine (Lantus Solostar U-100 Insulin) 100 unit/mL (3 mL) insulin pen Abahdxrltdgb58LSETLYFOQBCryxh eveningApr2023 3:50pmJuly 2023 3:07pmLisinopril 10 mg zwxzajMpcdfjaeucti79YVKXKmcutSzzqv 2023 3:51pm April 19, 2024 4:16pmTriamterene-Hydrochlorothiazid 37.5-25 mg tablet Eczoniaptohr7AONkwjcCbjht 2023 12:00amApril 2023 2:09pmtake 1/2 tablet by mouth dailyPregabalin (Lyrica) 225 mg obutjzrNsytjwdefyvn040NWZSTsmkf daily 20466Angfw2023 12:00amApril 2023 2:12pmPregabalin (Lyrica) 225 mg fhkoccxSjpehogmatrb230JDROEosml tkjvx19904Drrhc 2023 2:11pmSeptember 2023 10:02amZolpidem 5 mg iggqziCuwnulrmoqoi2IPLQUfsun at bedtimeApr2023 12:00amApril 2023 12:43pmZolpidem 5 mg szkxntJjhlxfftexux7FNBDAikog at tctupwe3841Hdgnf 4th, 2024 12:43pmOctober 2023 1:01pmInsulin Glargine (Lantus Solostar U-100 Insulin) 100 unit/mL (3 mL) insulin phfVjsryupustnz82ODQA SUBCUTDaily at bedtimeApr2023 12:00amApril 2023 2:21pmAmoxicillin 500 mg qtcebkfKytvqozyovkr3878LSNPOiwab 12 rhwvr4419Socl 2023 12:00amJuly 2023 8:16amOxycodone-Acetaminophen (Percocet) 5-325 mg tabletDiscontinued1 TABPO.LUDVCWP3506Fwul 2023October 2023 3:15pm1 tab orally one to two times a day as neededHydroxychloroquine 200 mg qwkzgnAidjduthzllk067IUURSjlup dailyJanuary 2024 1:00amApril 2024 3:52pmOxycodone-Acetaminophen (Percocet) 5-325 mg swevliWklgafmdiekg8RLUPJ.XNQGDOB4089Vikrtgn pril 2024 4:16pm1 tab orally one to two times a day as neededCiprofloxacin Hcl (Cipro) 500 mg vbfzdlJayhyjeqzpwr053WZLFQynod fkbbq299Miuglwy 2024 2:38pm November 10, 2024 3:51pmEstradiol 0.01 % (0.1 mg/gram) creamActiveVAGINAL3 Times a weekApril 2024 12:00amComplies with drug therapyOxycodone-Acetaminophen (Percocet) 5-325 mg nadzlkTfpovxdtpclm7ZWWNN.EVVYOAQ3025Awksj ugust 2024 3:21pm1 tab orally one to two times a day as neededPregabalin (Lyrica) 150 mg wceuwzfEkuzhppoossh415DQDBAibcb wjnol81097Qnwhwd 2024 12:00am April 01, 2025 9:46amOxycodone-Acetaminophen (Percocet) 5-325 mg tablet Miydaghxhoan1ZIFNP.AHGGEBV7842Niheva 2024October 2024 12:20pm1 tab orally one to two times a day as neededOxybutynin Chloride 5 mg nlckrtZzcvcw1ES PODailyJune 2024 12:00amComplies with drug therapyTriamterene- Hydrochlorothiazid 37.5-25 mg tabletDiscontinued0.5TABPOOnceJune 2024 2:33pmJuly 2024 2:00pmVenlafaxine 75 mg capsule,extended release 24hr Wyhnwqsxqxpa73GCYKJxsbPfrc 2024 2:34pmJuly 2024 2:00pm Hydroxychloroquine (Plaquenil) 200 mg lmtbjhVuoqtm375IXESSokbkVetx 2024 12:00amComplies with drug therapyB-Complex With Vitamin C xkjtuvLmiclu4BEXDO DailyJune 2024 12:00amComplies with drug therapyVenlafaxine 75 mg capsule,extended release 72bjEycwfl55YRTKIzkppVvrg 2024 1:59pmComplies with drug therapyTriamterene-Hydrochlorothiazid 37.5-25 mg tabletDiscontinued0.5 TABPODailyJuly 2024 1:59pmSeptember 2024 7:40amAlbuterol Sulfate 90 mcg/actuation HFA aerosol vymiowvDqalwg8YCRLMUQWJPKJROU0J207Ylwbrbo 2024 12:00amComplies with drug therapyPrednisone 20 mg njqzctWswyac08JWLIFqffs daily 105Oct[facility] 2024 12:00amComplies with drug therapyAlbuterol Sulfate 2.5 mg /3 mL (0.083 %) solution for nebulizationActive2.4TLPHZCUVABFKZ5T as needed for shortness of breath or sfdupksh956Wdntyes 2024 12:00amComplies with drug therapyPropranolol 60 mg capsule,extended release 24 jvZqyhps35BREQXwacmWpulojr 2024 11:59amComplies with drug therapyLisinopril 10 mg wrwkjoQzgaux11OHZT DailyOctriver valley behavioral health hospital 2024 12:00pmComplies with drug therapyLevothyroxine 100 mcg bmwcoaPzqjhp687LNCIO.COMPLEXOctriver valley behavioral health hospital 2024 12:93ll802 mcg orally TAKE 1 TABLET BY MOUTH IN THE MORNING ON AN EMPTY STOMACH. Do not eat or drink for 30- 45 MINUTES after taking;Complies with drug therapyEzetimibe 10 mg ykccgqUqbovh00 MGPODailySelect Specialty Hospital 2024 12:00pmComplies with drug therapyAtorvastatin 20 mg yusfzjDstbwm93XHBHBgpciKlumqzu 2024 12:01pmComplies with drug therapy Prednisone 20 mg yuzybtOqhxpb3HA.with food or xbhw012Zxoyzan 2024 12:00am take 3 tablets a day x3 days, 2 tabs a day x3 days and then 1 tab a day x3 days orally WITH FOOD ORMILK;Complies with drug therapy Immunizations Immunization Event Date Not Given Reason Dose Number [employer] R[employer] Representative Lot Number Vaccine Information Statement (VIS) Detail Administration Location COVID-19 mRNA, Comirnaty (Pfizer) August 11, 2020 COVID-19 mRNA, Comirnaty (Pfizer)September 01OVI mRNA, Comirnaty (Wavii)June 01OVI mRNA Bivalent Booster (Pfizer)April 18OVID (Cmxtwenty) 12Y and olderDecember OVID-19 (Cmxtwenty) 12Y and olderSept2023Fluzone TIV High-Dose 65YR+ March 19, 2024Fluzone QIV High-Dose 65YR+April 04, 2021Fluzone QIV High-Dose 65YR+April 15, 2023Influenza, trivalentSeptember 2018 Influenza Quadrivalent PF MDCKNovember 2017influenza, unspecified formulationSeptember 2020influenza, unspecified formulationOctober neumococcal Conjugate Vaccine, 13 valentJanuary 2019Pneumococcal Conjugate Vaccine, 20 valentDecember 3Pneumococcal Polysacc. Vaccine, 23 valentSeptember 2018Pneumococcal Polysacc. Vaccine, 23 valentOctober SV, preF3, adj, pfDecember 2022Zoster Vaccine Recombinant, AdjuvantedDecember 2022Tetanus, Diphtheria, Pertussis (Tdap)January 13, 2022 [id number] Health [facility] CtrTrivalent Influenza VaccineNovember 2017Trivalent Influenza VaccineSeptember 2018 Medical Equipment Device Date Implanted Device Details ALLOGRAFT FUSELOX LUMBAR March 24, 2017 ALLOGRAFT FUSELOX LUMBARSeptember 2016[place] One Level DeformitySeptember 2016CANCELLOUS 15CC CRUSHEDSeptember 2016CROSSLINK CAPLOX II MED/LG March 24, 2017NUVASIVE LOCK SCREWSSeptember 2016NUVASIVE LOCK SCREWS March 24, 2017NUVASIVE LOCK SCREWSSeptember 2016NUVASIVE LOCK SCREWS March 24, 2017NUVASIVE RELINE SCREWSeptember 2016NUVASIVE RELINE SCREWSeptember 2016NUVASIVE RELINE SCREWSeptember 2016NUVASIVE RELINE SCREWSeptember 2016NUVASIVE RODSeptember 2016NUVASIVE KAREEM March 24, 2017OSTEOAMP GRANULES 10CCSeptember 2016 Procedures Procedure Date Performed Status XR chest 2V* April 26, 2025 12:00am compl eted Relevant Diagnostic Tests and/or Laboratory Data Laboratory Results Test Collection Date/Time Result Date/Time Result Interpretation Reference Range Result Comment Performing Site Absolute Basophils (Manual) February 09, 2025 1:40pm February 09, 2025 1:40pm 0.00 10 3/uL 0.00-0.10HematocritJuly 2024 1:40pm36.4 %36.0-48.0Anion GapJu2024 1:40pmJuly 2024 1:40pm10.2Absolute Basophils (Manual)March 16, 2025 8:38amSeptember 2024 8:38am0.00 10 3/uL0.00-0.10HematocritSept2024 8:38am39.4 %36.0-48.0Anion GapSept2024 8:38amSeptember 2024 8:38am11.8Basophils %February 09, 2025 1:40pmJuly 2024 1:40pm0.0 %Below low normal0.2-2.0HemoglobinJuly 2024 1:40pm11.6 g/dLBelow low omwtia22.0-16.0 BUN/Creatinine RatioJuly 2024 1:40pmJuly 2024 1:40pm25.2Basophils % March 16, 2025 8:38amSeptember 2024 8:38am0.0 %Below low normal0.2-2.0 HemoglobinSept2024 8:38am12.8 g/dL12.0-16.0BUN/Creatinine Ratio March 16, 2025 8:38amSeptember 2024 8:38am22.6Eosinophils # (Manual) February 09, 2025 1:40pmJuly 2024 1:40pm0.00 10 3/uL0.00-0.70Mean Corpuscular HemoglobinJuly 2024 1:40pm30.2 pg26.7-34.0Blood Urea Nitrogen February 09, 2025 1:40pmJuly 2024 1:40pm36.0 mg/dLAbove high normal7.0-18.0 Eosinophils # (Manual)March 16, 2025 8:38amSeptember 2024 8:38am0.37 10 3/uL0.00-0.70Mean Corpuscular HemoglobinSept2024 8:38am30.5 pg 26.7-34.0Blood Urea NitrogenSept2024 8:38amSeptember 2024 8:38am 28.0 mg/dLAbove high normal7.0-18.0Eosinophils %February 09, 2025 1:40pmJuly 2024 1:40pm0.0 %Below low normal0.9-7.0Mean Corpuscular Hemoglobin ConcentJuly 2024 1:40pm31.9 g/dL29.9-35.2Calcium LevelJuly 2024 1:40pmJuly 2024 1:40pm9.0 mg/dL8.5-10.1Eosinophils %March 16, 2025 8:38amSeptember 2024 8:38am2.0 %0.9-7.0Mean Corpuscular Hemoglobin ConcentSept2024 8:38am32.5 g/dL29.9-35.2Calcium LevelSept2024 8:38amSeptember 2024 8:38am8.9 mg/dL8.5-10.1Lymphocytes # (Manual)February 09, 2025 1:40pm February 09, 2025 1:40pm9.84 10 3/uLAbove high normal1.20-3.80Mean Corpuscular VolumeJuly 2024 1:40pm94.8 fL81.0-99.0Chloride LevelJuly 2024 1:40pm February 09, 2025 1:24dh673 mmol/F97-875Ptwuwuqsayo # (Manual)March 16, 2025 8:38amSeptember 2024 8:38am12.95 10 3/uLAbove high normal1.20-3.80Mean Corpuscular VolumeSept2024 8:38am93.8 fL81.0-99.0Chloride Level March 16, 2025 8:38amSeptember 2024 8:82yl985 mmol/T52-278Pqigpgegkma %February 09, 2025 1:40pmJuly 2024 1:40pm51.0 %20.5-60.0Mean Platelet Volume February 09, 2025 1:40pm11.8 fL9.5-13.5Carbon Dioxide LevelJuly 2024 1:40pm February 09, 2025 1:40pm30.8 mmol/L21.0-32.0Lymphocytes %March 16, 2025 8:38amSeptember 2024 8:38am70.0 %Above high kmcqei17.5-60.0Mean Platelet VolumeSept2024 8:38am11.6 fL9.5-13.5Carbon Dioxide LevelSept2024 8:38amSeptember 2024 8:38am30.0 mmol/L21.0-32.0Monocytes # (Manual)February 09, 2025 1:40pmJuly 2024 1:40pm0.96 10 3/uLAbove high normal0.30-0.80Platelet CountJuly 2024 1:97ud088 10 3/aO445-885Wzjclgheqp February 09, 2025 1:40pmJuly 2024 1:40pm1.43 mg/dLAbove high normal0.55-1.02 Monocytes # (Manual)March 16, 2025 8:38amSeptember 2024 8:38am1.11 10 3/uLAbove high normal0.30-0.80Platelet CountSeptember 2024 8:24mv808 10 3/gY449-998AvldvidczmQyqspwtij 2024 8:38amSeptember 2024 8:38am1.24 mg/dLAbove high normal0.55-1.02Monocytes %February 09, 2025 1:40pmJuly 2024 1:40pm5.0 %1.7-12.0Red Blood CountJuly 2024 1:40pm3.84 10 6/uLBelow low normal4.20-5.40Estimated GFR ()February 09, 2025 1:40pmJuly 2024 1:94tt92Wbdhm low normal>=60 mL/min/1.73m 2Monocytes %March 16, 2025 8:38amSeptember 2024 8:38am6.0 %1.7-12.0Red Blood CountSeptember 2024 8:38am4.20 10 6/uL4.20-5.40Estimated GFR ()March 16, 2025 8:38amSeptember 2024 8:80wy77Hlfsf low normal>=60 mL/min/1.73m 2Segmented Neutrophils # (Manual)February 09, 2025 1:40pmJuly 2024 1:40pm8.49 10 3/uL Above high normal1.4-6.5Red Cell Distribution WidthJuly 2024 1:40pm13.7 % 11.0-15.0Estimated GFR (Non- AmericanJuly 2024 1:40pmJuly 2024 1:01et53Hukuy low normal>=60 mL/min/1.73m 2Segmented Neutrophils # (Manual) March 16, 2025 8:38amSeptember 2024 8:38am4.07 10 3/uL1.4-6.5Red Cell Distribution WidthSeptember 2024 8:38am13.3 %11.0-15.0Estimated GFR (Non- AmericanSept2024 8:38amSeptember 2024 8:15to77Ubajn low normal>=60 mL/min/1.73m 2Segmented NeutrophilsJuly 2024 1:40pmJuly 2024 1:40pm44.043.0-75.0Corrected White Blood CountJuly 2024 1:40pm19.3 10 3/uLAbove high normal4.0-11.0Glucose LevelJuly 2024 1:40pmJuly 2024 1:83dt948 mg/dLAbove high wgdqym35-049Iulrmdimn NeutrophilsSeptember 2024 8:38amSeptember 2024 8:38am22.0Below low bwoolf04.0-75.0Corrected White Blood CountSeptember 2024 8:38am18.5 10 3/uLAbove high normal4.0-11.0 Glucose LevelSeptember 2024 8:38amSeptember 2024 8:49mw016 mg/dLAbove high uzpqvb54-522Lyudfc CellsJuly 2024 1:40pmJuly 2024 1:40pmSEEN Potassium LevelJuly 2024 1:40pmJuly 2024 1:40pm5.0 mmol/L3.5-5.1 Potassium LevelSeptember 2024 8:38amSeptember 2024 8:38am4.8 mmol/L 3.5-5.1Sodium LevelJuly 2024 1:40pmJuly 2024 1:52fb270 mmol/N175-725 Sodium LevelSeptember 2024 8:38amSeptember 2024 8:62bo125 mmol/L 136-145 Diagnostic Imaging Reports Author Galo Rodriguez Doctors HospitalAuthoredOctober 2024 2:36pmReportDictated Date/TimeDictated ByStatusRadiology ReportOctober 2024 2:36pmJoseph Jr Michael DOcomplete[place] [address] XRay Report Signed Patient: Kathy Washburn MR#: [id number] : 1940 Acct:[id number] Age/Sex: 84 / F ADM Date: 5 [facility]: Type[facility] Attending Dr: Mckenzie Christopher APRN Copies to: Mckenzie Christopher APRN~ Ordering Provider: Mckenzie Christopher APRN Date of Service: 04/26/25 XR/XR chest 2V*: COUGH,CONGESTION Chest 2 views CLINICAL HISTORY: Cough congestion and fatigue for 4 days. COMPARISON: Chest 01/13/2022 FINDINGS: Heart normal size. Chronic interstitial changes. No consolidation pneumothorax pleural effusion or free air. Neurostimulator device is in place. XR/XR chest 2V* IMPRESSION: NO ACUTE CARDIOPULMONARY ABNORMALITY. Impression dictated by: Galo Rodriguez Jr., D.O. 04/26/2025 2:40 PM Dictation Location: [place] [address] Transcribed By: [facility] 04/26/25 1440 Dictated By: Galo Rodriguez Jr, DO 04/26/25 1436 Signed By: <Electronically signed by Galo Rodriguez Jr, DO in OV> 04/26/25 1440 Vital Signs Vital Reading Result Reference Range Collection Date/Time Height 69 [in_i] February 15, 2025 2:41bwLlodgu922.32 kgAugust 2024 2:44pmBody Temperature 98.3 [degF]97.6-99.0August 2024 2:44pmHeart Rate79 /mzn18-369Ucpqsq 2024 2:44pmOxygen saturation by Pulse noujtgvs01 %95-100Augus2024 2:44pm BP Xjgrealr314 mm[Hg]100-140August 2024 2:44pmBP Dfgjinbge75 mm[Hg]60-100 February 15, 2025 2:44pmBMI (Body Mass Index)34.0 kg/n0Hpxazj 2024 2:44pm Otpkkk26 [in_i]April 26, 2025 1:20lxYflflp507.68 kgOctober 2024 1:44pm Body Qoptuyyemat04.3 [degF]97.6-99.0October 2024 1:44pmHeart Rate80 /min 60-100[facility] 2024 1:44pmRespiratory rate20 /sas78-97Gsiutca 2024 1:44pmOxygen saturation by Pulse mfonhcjh51 %95-100[facility] 2024 1:44pmBP Zfehuyax22 mm[Hg]100-140[facility] 2024 1:44pmBP Rvzxfaukt11 mm[Hg]60-100 April 26, 2025 1:44pmBMI (Body Mass Index)34.4 kg/o9Xegkpzh 2024 1:94rzIlqijf32 [in_i]April 28, 2025 11:10ooKkqtwp927.77 kgSelect [facility] Hospital 2024 11:01amBody Fujnlmzimtq43.2 [degF]97.6-99.0[facility] 2024 11:01amHeart Rate 75 /sow77-313Sdniyhe 2024 11:01amOxygen saturation by Pulse fyyebogy44 % 95-100[facility] 2024 11:01amBP Vazrqtac183 mm[Hg]100-140[facility] 2024 11:01amBP Ptkcvrfsp37 mm[Hg]60-100[facility] 2024 11:01amBMI (Body Mass Index)34.1 kg/d9Ukjojqy 2024 11:01am Advance Directives Advance Directive Response Recorded Date/ Time Advance Directives No August 11, 2024 2:41pm Insurance Providers Guarantor Kathy Washburn Address [address] [place] [id number] Info.Home Phone: Payer Policy Id Subscriber's Name Subscriber Id Effectiv e Date Expiration Date Medicare [id number] Kathy Washburn [id number] Medicare Rehab-IP Part [id number] L [id number] Encounters Encounter Location(s) Arrival/Admit Date Discharge/Depart Date Provider(s) Non-patient / Non-visit -[facility] Professional Alia varela 2024 1:40pm CASSIE Parmareparted Physician/Provider [facility] 2:43pmAugust 2024 3:33pmDebbie Davila-patient / Ury[facility]dluub[facility] 20[facility] 8:38am Som Azul , MDDeparted Physician/Provider Office Visit-[facility] 2024 1:42pmOctober 2024 2:58pmMckenzie Christopher INDUSTRIAL STAFF NURSE Departed Clinical-[facility] 2024 2:03pmOctober 2024 2:04pmMckenzie Christopher APRNDeparted Physician/Provider Office Visit-[facility] 2024 11:49amOctober 2024 12:26pm Dmitriy Presley , Recent Diagnosis Onset Date Admit Date Hydradenitis Unknown February 15, 2025 2:43pm Lumbar degenerative disc disease Unknown February 15, 2025 2:43pm Neuropathy Unknown February 15, 2025 2:43pm Overactive bladder Unknown February 15, 2 025 2:43pm Diabetes Unknown February 15, 2025 2:43pm Bronchiolitis Unknown April 26 1:42pm Fatigue Unknown April 28 11:49am Bronchiolitis Unknown April 28 11:49am Assessments Author Dmitriy Presley [facility] 2024 4:31pmThe above note written by ___Melanie Conde____ acting as human recorder, note dictated by Dr. Slater .I performed the above HPI, ROS, and Examination. I formulated and dictated the treatment plan and was present for entire encounter. Dmitriy Presley D.O. Plan of Treatment Author Melanie Conde [facility] 2024 3:34pmShe will be getting a spinal stimulator placed on 02/21/[address] Azul at the [facility]. She does continue to use and benefit from the pain medication. Provided her with a refill today. Frequent appointments needed due to addiction potential of medication. Pain inventory sheet completed and reviewed if opioid medication given. Pain contract is on file if pertinent. Patient will have office visits every three months for evaluation or sooner if needed. I discussed addiction potential of medication with the patient. Discussed with the patient and provided a treatment plan including the use of non-opioid analgesics and non-pharmacological intervention with patient if treated for pain. We have discussed realistic benefits and known risks of opioid/controlled therapy and the expected benefits for both pain and function. These benefits outweigh the risks. Patient has been counselled on the dangers of combining opioids/controlled prescriptions with alcohol or other sedatives and counseled on the safe storage and disposal of opioids/controlled prescriptions. Do not drive or operate heavy machinery after taking opioid/controlled medication. I have verified that no current substance abuse treatments are being prescribed.? Her Metformin dose was cut in half by Dr. Arevalo and he felt she may benefit from Jardiance or Farxiga. This is something that we will discuss at her next office visit when we see her A1C. Dr. Arevalo wanted her to decrease her Lyrica dose to 150 MG because of her kidney studies. She feels that this will be difficult due to her pain, she voices that this medication works well for her pain. I did recommend that she wait to start decreasing the dose until 02/23/25 (after she has the spinal stimulator placed) and she is agreeable to the plan. Starting on 02/23/25 she should take 150 MG in the morning and 250 MG in the evening for three days in a row and then starting on 02/26/25 she can take 150 MG two times a day. If she finds that the lower dose is not tolerable she is to let me know and we can discuss going back up. She was following with Susan Randolph who prescribed a medicine she can take if she is traveling to help her bladder control.??I did recommend she use this only as needed because retirement use of this can cause dementia. She has a lump in the right axilla. She voices that this was red at one time but it never came to a head. She is up to date on mammogram (05/18/24). She will be sure she schedules one for after 05/19/25. I did recommend she see a kennel supervisor for evaluation of this area as well.?? She has another area on her right leg that looks like an age spot/liver spot. This is not concerning but I did recommend that she see a kennel supervisor for evaluation for a skin evaluation. All questions she has about her oxygen level were answered. Author Mckenzie Christopher Doctors HospitalAuthoredOctober 2024 6:50pmAdvised that COVID/Influenza A/B/RSV PCR test was negative today in office. Chest XR negative. Discussed diagnosis with patient in detail. Inflammation appears to be at bronchial stem. Will treat with steroid, inhaler, breathing treatments. Instructed to take medications as directed as prescribed. Encouraged supportive care discussed including, increasing fluids and rest, cool mist humidifier. Tylenol??as directed for fever/discomfort. Follow up with PCP later this week. Encouraged at home pulse ox, if readings below 88-90% after starting therapy, she needs to be in ER setting. Immediate eval by ER for increased work of breathing, difficulty breathing, stridor, lethargy, limp tone, fevers unresponsive to antipyretic, fevers >103, lethargy, stiff neck, poor PO intake and decrease in urine output, inconsolable, or if any other new or concerning symptoms arise. Patient and daughter verbalizes understanding and agreeable to treatment plan.?? Author Melanie Conde Doctors HospitalAuthoredOctober 2024 12:20pmWe discussed that her oxygen level is at 92 in the office. If her oxygen goes below 85 she needs to go to the ER for evaluation. She developed symptoms on 04/23/25 and worsened on 04/24/25. She started sneezing and then developed a cough. Her cough is loose but not productive. No fever that she is aware of, but she does have chills. Her testing for RSV, Flu and COVID were negative on 04/26/25 but I explained to her that COVID-19 can test negative until her body builds up antibodies to test positive. She was not given an antibiotic. I am going to provide her with an antibiotic to treat any potential bacterial infection she may be fighting. She is using nebulizer treatments four times a day. She is using steroids and only has two days left. Guidance is given on how to take the antibiotic. Use caution when in the sun due to sun sensitivity. She needs to take her magnesium 2-3 hours away from either Doxy dose. I would like to increase her Prednisone to help decrease inflammation and open her airways. Guidance is given on how to take the Prednisone. Side effects/risks/benefits were reviewed. Do not take any Ibuprofen, Aleve, Advil or Motrin. She should take 2 more Prednisone today and then take 3 tomorrow and then start the new prescription on Friday04/30/25. If she does have pneumonia starting it can take up to three months before she gets her energy level back. Continue with the albuterol treatments four times a day and use the inhaler for when she is out and about and not at home (2 inhalations). She voices that she has been very fatigued, she did shower this morning and dressed and is already drained. I did explain to her that the chest x-ray was negative but she could still have pneumonia as this can be delayed. I am going to treat her with an antibiotic to treat any potential pneumonia she could be trying to develop. She is due to have lab work drawn prior to her appointment in early May, but I explained to her that the Prednisone will interfere with that so I would like her to wait to have her lab drawn until just 2-3 days prior to the appointment. Future Tests Future scheduled test information is unavailable Pending Tests Test Name Ordered Date Scheduled Date MM screening mammo BI w/CAD February 15, 2025 3:1 8pm XR chest 2V*April 26, 2025 2:00pm Future Visits Future appointment information is unavailable Referrals to Other Providers Referral information is unavailable Future Procedures Future procedure information is unavailable Future Medications Future medication information is unavailable Patient Instructions Patient instructions are unavailable
--- OUTSIDE RECORDS SUMMARY | 2025-05-12 08:47 | XMS_ITS | Clinical Summary ---
Author Organization [facility] Healthcare Address [address] [place] [address] Care Team Providers Care Home Service Director Name Role Phone Dmitriy Presley MD Primary Care Provider [phone] Maco Guillaume DO Unavailable [phone] Allergies Active AllergyReactionsCriticalityNoted KxqkGzzrkjsvYwysgujyjypBtjgk79/06/2019 Other Reaction(s): Eye swelling FqugypnmpfkeknFogrlth76/26/2023 Medications MedicationSigDispense QuantityRefillsLast FilledStart DateEnd DateStatus hydroxychloroquine (Plaquenil) 200 MG tablet Active insulin glargine (Lantus) 100 UNIT/ML injection Active ketoconazole (NIZOral) 2 % cream Active mirabegron ER (Myrbetriq) 25 MG 24 hr tablet 1 (one) time each day at the same timeActive Lantus SoloStar 100 UNIT/ML pen 10/02/2022ctive O[employer]SC[employer] 500 + D 500-5 MG-MCG tablet Take 1 tablet by mouth in the morning.01/24/2022ctive ezetimibe (Zetia) 10 MG tablet Take 10 mg by mouth DailyActive pregabalin (Lyrica) 225 MG capsule Take 225 mg by mouth in the morning and 225 mg before bedtime.10/17/2022ctive citalopram (CeleXA) 40 MG tablet Take 40 mg by mouth DailyActive Multiple Vitamin (Tab-A-Sivan) tablet Take 1 tablet by mouth Daily01/24/2022ctive metFORMIN (Glucophage) 1000 MG tablet Take 1,000 mg by mouth in the morning and 1,000 mg in the evening. Take with meals.Active furosemide (Lasix) 20 MG tablet Take 20 mg by mouth in the morning and 20 mg before bedtime.Active lisinopril 10 MG tablet Take 10 mg by mouth DailyActive mirabegron ER (Myrbetriq) 25 MG 24 hr tablet 1 (one) time each day at the same timeActive atorvastatin (Lipitor) 20 MG tablet Take 20 mg by mouth DailyActive oxyCODONE-acetaminophen (Percocet) 5-325 MG tablet Active propranolol LA (Inderal LA) 60 MG 24 hr capsule Take 60 mg by mouth Daily07/12/2023ctive venlafaxine XR (Effexor XR) 75 MG 24 hr capsule 07/15/2023ctive zolpidem (Ambien) 5 MG tablet Take 5 mg by mouth at bedtimeActive cholecalciferol (Vitamin D-3) 125 MCG (5000 UT) capsule 5,000 Units10/21/2023ctive oxybutynin (Ditropan) 5 MG tablet 02/11/2023ctive levothyroxine (Synthroid, Levoxyl) 100 MCG tablet 04/19/2024ctive triamterene-hydrochlorothiazide (Maxzide-25) 37.5-25 MG tablet 04/19/2024ctive trospium (Sanctura) 20 MG tablet Take 20 mg by mouth in the morning and 20 mg before bedtime.07/08/2024ctive Estrace 0.1 MG/GM vaginal cream See Instructions, 42.5 gm, Refill(s) 6, apply a pea-sized amount vaginally and around the urethra 3x per week for UTI prevention, [employer] #72, 178, cm, 08/16/24 9:10:00 EST, Height/Length Dosing, 103, kg, 08/16/24 9:10:00 EST, Weight Jljdse865Active aspirin 81 MG EC tablet 1 (one) time each day at the same timeActive magnesium oxide (Mag-Ox) 400 (240 Mg) MG tablet Take 400 mg by mouth Daily5Active Active Problems ProblemNoted DateDiagnosed HofiHukrllmm08/11/1445Ayqkvkogfkqa73/11/2024chilles tendinitis of left lower ivrdaapfc96/28/2023one spur of posterior portion of ojnbvlhhl68/28/1558Nrkdcrbmqhcxt60/28/2023rtificial knee joint present 12/06/2022urning sensation of vulva12/06/2022Mixed xznrynjfhila44/26/2023 Notalgia nzuewceiocct02/26/2023Other hammer toe(s) (acquired), left foot 12/06/2022Other hammer toe(s) (acquired), right foot12/06/2022Overactive bladder 12/06/2022Type 2 diabetes mellitus with peripheral xwdlfcvsro81/26/2023 Unsteadiness on feet12/06/2022Vaginal yprdsmb4212/06/2022Rheumatoid arthritis 06/04/2011enign essential peklitwgwmjl10/01/2010Disorder associated with type 2 diabetes lrdseppt54/01/2010 Encounters DateTypeDepartmentCare GegnDvqzxtrroto11/06/2025 2:30 PM EDTOffice Visit [facility] [address] [place] [id number] Nay Lousi PA Clements angioma (Primary Dx); Seborrheic keratosis; Actinic keratosis; Lentigines; Lipoma of right upper nzkncelao56/06/2025amboo flowsheet [facility] [address] [place] [id number] Nay Louis PA 04/18/2025Travelfrom Last 3 Months Immunizations ImmunizationAdministration DatesNext DueInfluenza, High-dose Seasonal, Quadrivalent, Preservative Free04/04/2021 Family History Medical HistoryRelationNameCommentsNo Known ProblemsBrotherAlzheimer's disease FatherMigrated family historyHeart diseaseFatherCancerMotherAccidental SisterMVABreast cancerNeg HxColon cancerNeg HxOvarian cancerNeg HxPancreatic cancerNeg HxRelationNameStatusCommentsBrother1 brotherFatherDeceasedMother DeceasedOtherSpouseDeceasedSisterDeceased1 sister Social History Tobacco UseTypesPacks/DayYears UsedDateSmoking Tobacco: Never Tobacco Cessation:Counseling Given: Not Answered Alcohol UseStandard Drinks/WeekCommentsYes0 (1 standard drink = 0.6 oz pure alcohol)Alcohol: 1-2 drinks occasionally. Caffeine: 3-4 cups/day coffee CommentsUnknownSex and Gender InformationValueDate RecordedSex Assigned at Not on fileLegal AlyEonlrp59/15/2023 7:08 PM EDTGender IdentityNot on fileSexual OrientationNot on file Last Filed Vital Signs Vital SignReadingTime TakenCommentsBlood Fwapdvoo747/7607 1:23 PM EDT Cxcpr9043 2:16 PM ESTTemperature--Respiratory Rate--Oxygen Karsivhshj07% 06/17/2024 1:58 PM ESTInhaled Oxygen Concentration--Ydgebl382 kg (225 lb) 01/12/2025 1:23 PM QTRPllopr093.3 cm (5' 9 )01/12/2025 1:23 PM EDTBody Mass Index33.23001/12/2025 1:23 PM EDT Plan of Treatment Health MaintenanceDue DateLast DoneCommentsDTaP/Tdap/Td Vaccines (1 - Tdap) 1949COVID-19 Vaccine (6 - season)509/12/2023, 06/23/2023, 06/01/2021, Additional history existsInfluenza Vaccine (#1)509/12/2023, 04/15/2023, 04/25/2021, Additional history existsPneumococcal Vaccine: 65+ Years Ygzcuaghu38/11/2023, 04/22/2022, 07/14/2019, Additional history existsHIB VaccinesAged OutNo longer eligible based on patient's age to complete this topic HPV VaccinesAged OutNo longer eligible based on patient's age to complete this topicHepatitis A VaccinesAged OutNo longer eligible based on patient's age to complete this topicHepatitis B VaccinesAged OutNo longer eligible based on patient's age to complete this topicIPV VaccinesAged OutNo longer eligible based on patient's age to complete this topicMeningococcal B VaccineAged OutNo longer eligible based on patient's age to complete this topicMeningococcal VaccineAged OutNo longer eligible based on patient's age to complete this topicRotavirus VaccinesAged OutNo longer eligible based on patient's age to complete this topic Procedures Procedure NamePriorityDate/TimeAssociated DiagnosisCommentsCRYOTHERAPY SKIN XYLMUYSckezbu56/06/2025 2:46 PM EDT Actinic keratosis from Last 3 Months Results * Cryotherapy, skin lesion (04/18/2025 2:46 PM EDT) Narrative Authorizing ProviderResult TypeResult StatusRye [facility] PROCEDURE ORDERABLESFinal Result from Last 3 Months Insurance Care Teams Team MemberRelationshipSpecialtyStart DateEnd Date Dmitriy Presley MD [address] [place] [address] PCP - GeneralFamily Medicine12/10/22 Maco Guillaume DO [address] [place] [address] Referring PhysicianNeurolog08/09/24
--- OUTSIDE RECORDS SUMMARY | 2025-05-12 08:47 | XMS_ITS | Clinical Summary ---
Author Organization [facility] Address [address] [place] [address] Phone Care Team Providers Care Claim Processing Specialist Name Role Phone Dmitriy Presley DO Primary Care Provider [phone] Social History Tobacco UseTypesPacks/DayYears UsedDateSmoking Tobacco: Never Assessed CommentsUnknownSex and Gender InformationValueDate RecordedSex Assigned at Not on fileLegal ApgUyktxv82/25/2022 3:02 PM ESTGender IdentityNot on fileSexual OrientationNot on file Plan of Treatment Health MaintenanceDue DateLast DoneCommentsLipid Panel1942Yearly Adult Nzxapxxv1942DTaP/Tdap/Td Vaccines (1 - Tdap)1964Zoster Vaccines (1 of 2)1992Bone Density Scan2007RSV High Risk: (Elderly (60+) or Population) (1 - 1-dose 75+ series)2017Pneumococcal Vaccine (2 of 2 - PCV), 04/03/2019Influenza Vaccine (#1)2025 04/18/2022, 04/04/2021, 03/27/2020, Additional history existsCOVID-19 Vaccine ( season)2025HIB VaccinesAged OutNo longer eligible based on patient's age to complete this topicHPV VaccinesAged OutNo longer eligible based on patient's age to complete this topicHepatitis A VaccinesAged OutNo longer eligible based on patient's age to complete this topicHepatitis B VaccinesAged OutNo longer eligible based on patient's age to complete this topicIPV Vaccines Aged OutNo longer eligible based on patient's age to complete this topic Meningococcal VaccineAged OutNo longer eligible based on patient's age to complete this topicRotavirus VaccinesAged OutNo longer eligible based on patient's age to complete this topic Care Teams Team MemberRelationshipSpecialtyStart DateEnd Date Dmitriy Presley DO PCP - Rfarlkt33/31/18
--- OUTSIDE RECORDS SUMMARY | 2025-05-12 08:47 | XMS_ITS | Clinical Summary ---
Author Organization [facility] Address [address], [address] [place] [address] Care Team Providers Care Hybrid Car Mechanic Name Role Phone Dmitriy Presley DO Primary Care Provider Unavail able Allergies Active AllergyReactionsCriticalityNoted XyxsTodhdrzsFvcixluxnqhxjh85/06/2019 Qmjxmntnexz54/06/2019 Medications MedicationSigDispense QuantityRefillsLast FilledStart DateEnd DateStatus methylPREDNISolone (MEDROL) 4 MG tablet Take 2 mg by mouth dailyActive hydroxychloroquine (PLAQUENIL) 200 MG tablet Take by mouth dailyActive oxyCODONE-acetaminophen (PERCOCET) 5-325 MG per tablet Take 1 tablet by mouth every 6 hours as needed for Pain.Active pregabalin (LYRICA) 25 MG capsule Take 125 mg by mouth 2 times daily.Active triamterene-hydrochlorothiazide (MAXZIDE-25) 37.5-25 MG per tablet Take 1 tablet by mouth dailyActive ezetimibe (ZETIA) 10 MG tablet Take 10 mg by mouth dailyActive lisinopril (PRINIVIL;ZESTRIL) 10 MG tablet Take 10 mg by mouth dailyActive propranolol (INDERAL) 60 MG tablet Take 60 mg by mouth dailyActive levothyroxine (SYNTHROID) 75 MCG tablet Take 75 mcg by mouth DailyActive atorvastatin (LIPITOR) 20 MG tablet Take 20 mg by mouth dailyActive metFORMIN (GLUCOPHAGE) 1000 MG tablet Take 1,000 mg by mouth 2 times daily (with meals)Active furosemide (LASIX) 20 MG tablet Take 20 mg by mouth 2 times dailyActive aspirin 81 MG tablet Take 81 mg by mouth dailyActive citalopram (CELEXA) 40 MG tablet Take 40 mg by mouth dailyActive insulin glargine (LANTUS) 100 UNIT/ML injection vial Inject into the skin nightlyActive zolpidem (AMBIEN) 5 MG tablet Take 5 mg by mouth nightly as needed for Sleep.Active diclofenac (VOLTAREN) 50 MG EC tablet Take 1 tablet by mouth 2 times daily 60 tablet 03/24/2020Active Family History Medical HistoryRelationNameCommentsCoronary Art DisFatherHeart DiseaseFatherHigh Blood PressureFatherCancerMotherRelationNameStatusCommentsFatherMother Social History Tobacco UseTypesPacks/DayYears UsedDateSmoking Tobacco: Never AssessedSmokeless Tobacco: NeverCommentsUnknownSex and Gender InformationValueDate RecordedSex Assigned at BirthNot on fileLegal PpsVjyyuf98/12/2013 4:04 AM EST Gender IdentityNot on fileSexual OrientationNot on file Last Filed Vital Signs Vital SignReadingTime TakenCommentsBlood Pressure--Pulse--Tkdwccxssmr57 ??C (96.8 ??F)06/18/2019 10:09 AM ESTRespiratory Rate--Oxygen Saturation--Inhaled Oxygen Concentration--Bbhepg295.6 kg (235 lb)06/18/2019 10:09 AM MVUMdnicj352.8 cm (5' 10 )06/18/2019 10:09 AM ESTBody Mass Index33.7206/18/2019 10:09 AM EST Plan of Treatment Not on file Insurance Care Teams Team MemberRelationshipSpecialtyStart DateEnd Date Dmitriy Presley DO PCP - [facility]02/05/19
--- OUTSIDE RECORDS SUMMARY | 2025-05-12 08:49 | XMS_ITS | CCD ---
Author Organization [facility] Care Team Providers Care Photogrammetric Engineer Name Role Phone Ayanna Vicente Primary Care Provider Ayanna Vicente Unavailable Ayanna Vicente Unavailable [phone] Ayanna Vicente Unavailable Ayanna Milner Unavailable DO Ayanna Vicente Primary Care Provider [phone] MD Butch Redding Emergency Provider [phone] MD Bertram Garrison Admit Provider MD Bertram Garrison Attending Provider MD Galo Max Admit Provider MD Galo Max Attending Provider ALLYSSA Penn Other Provider Unavailable ALLYSSA Orourke Other Provider Unavailable ALLYSSA Camejo Other Provider Unavailable ALLYSSA Das Other Provider Unavailable ALLYSSA Acosta Other Provider Unavailable Mae RN Laura Other Provider Unavailable MD Yuliana Hale Other Provider MD Herman Kevin Other Provider [place], GRAPHICS PRODUCTION SPECIALIST Kitty Villalobos Other Provider [phone] DO Madeline Juarez Other Provider [phone] MD Marcio Hernandez Other Provider DO Loco Velasquez Other Provider MD Elgin Irby Other Provider MD Adali Salamanca Other Provider [phone] ART Riojas-BC Valarie Other Provider MD Max [...] Other Provider DO Gume Macedo Other Provider [phone] MD Zohaib Akins II Other Provider DO Ayanna Vicente Attending Provider Ayanna Vicente DO Primary Care Provider Ayanna Vicente DO Unavailable Ayanna Vicente DO Unavailable DO Ayanna Vicente Primary Care Provider Ayanna Vicente DO Primary Care Provider Ayanna Vicente DO Unavailable [phone] Ayanna Vicente DO Unavailable [phone] DO Ayanna Vicente Primary Care Provider DO Ayanna Vicente Attending Provider MD Santos Lares Attending Provider Ayanna Vicente Primary Care Unavailable PABLO Dubon Attending Provider DO Ayanna Vicente Primary Care Provider DO Ayanna Vicente Attending Provider [phone] MD Santos Lares Attending Provider [phone] PABLO Dubon Attending Provider [address] AYANNA VICENTE Primary Care Unavailable LAKSHMIPATHY ., NARENDRANATH Attending Abigail vailable VERNONMIPATHJoslyn ., NARENDRANATH Admitting Abigail vailable Ayanna Vicente Primary Care Physician DO Ayanna Vicente Primary Care Provider [phone] DO Ayanna Vicente Attending Provider Junior Butterfield Unavailable Homa Mckeon Unavailable Ayanna Vicente MD Primary Care Provider [phone] DO Ayanna Vicente Primary Care Provider DO Ayanna Vicente Attending Provider [phone] DO Ayanna Vicente Primary Care Provider DO Ayanna Vicente Attending Provider [phone] Ayanna Vicente DO Primary Care Provider Ayanna Vicente DO Unavailable Ayanna Vicente DO Unavailable DO Ayanna Vicente Primary Care Provider DO Ayanna Vicente Attending Provider [phone] Ayanna Vicente DO Primary Care Provider Ayanna Vicente DO Attending Provider Aundrea WISDOM Christopher Unavailable Ayanna Vicente DO Primary Care Provider [phone] Ayanna Vicente DO Attending Provider Tri Ag DO Attending Provider Ayanna Vicente DO Attending Provider AYANNA VICENTE Primary Care Unavailable SELF Referring Unavailable ZOHAIB GERMAN Attending Unavailable AYANNA VICENTE Primary Care Unavailable AYANNA VICENTE Primary Care Unavailable CHAD FREITAS Attending Unavailable ZOHAIB GERMAN Attending Unavailable AYANNA VICENTE Primary Care Unavailable Ayanna Vicente MD Primary Care Provider [phone] Aundrea WISDOM, Christopher Unavailable Aundrea , Christopher Unavailable Ayanna Vicente DO Attending Provider [phone] Ayanna Vicente DO Primary Care Provider Lesli Arevalo MD Attending Provider Moe Betts DO Attending Provider [phone] Sujey Stewart Attending Unavailable SUSAN RANDOLPH Attending Unavailable SUSAN RANDOLPH Attending Unavailable SUSAN RANDOLPH Attending Unavailable Ayanna Vicente DO Primary Care Provider Latha ROMEO, Andrius Attending Provider Ayanna Vicente DO Attending Provider Giedrarory ROMEO, Andrius Vy[place]as Attending Unavailable Giedraitis , Andrius Vytautas Attending Unavailable Giedraitis , Andrius Vytautas Attending Unavailable Giedraitis , Andrius [place]as Attending Unavailable Giedraitis , Andrius Vytautas Attending Unavailable Giedraitis , Andrius Vytautas Attending Unavailable Giedraitis , Andrius Vytautas Attending Unavailable Giedraitis , Andrius Vytautas Attending Unavailable Giedraitis , Andrius Vytautas Attending Unavailable Giedraitis , Andrius Loganytjose juan Attending Unavailable Giedraitis , Andrius Vytautmaria alejandra Attending Unavailable Giedraitis , Andrius Vytautmaria alejandra Attending Unavailable Giedraitis , Andrius Vytautmaria alejandra Attending Unavailable Giedraitis , Andrius Vytautmaria alejandra Attending Unavailable [place] Attending Unavailable ENRIQUE HAMMONDS Attending Unavailable BABITA GUILLAUME Referring Unavailable MOE BETTS Attending Unavailable BABITA GUILLAUME Attending Unavailable AYANNA VICENTE Referring Unavailable ROXANE, MOE H Attending Unavailable ESVIN DUBON Attending Unavailable Ayanna Vicente DO Primary Care Provider Lesli Arevalo MD Attending Provider [phone] Mckenzie Ramirez APRN Attending Provider Ayanna Vicente DO Primary Care Provider [phone] Ayanna Vicente Attending Unavailable Ayanna Vicente Primary Care Unavailable Ayanna Vicente Admitting Unavailable Sakina, Ayanna Admitting Unavailable Sakina, Ayanna Attending Unavailable Ayanna Vicente Primary Care Unavailable Sakina, Ayanna Admitting Unavailable Sakina, Ayanna Attending Unavailable Moe Betts Attending Unavailable Moe Betts Admitting Unavailable Sakina, Ayanna Primary Care Unavailable Marker, Tri Vasquez Attending Unavailable MarkerTri Admitting Unavailable Sakina, Ayanna Admitting Unavailable Sakina, Ayanna Attending Unavailable Mckenzie Christopher Attending Unavailable Mckenzie Christopher Admitting Unavailable Ayanna Vicente Primary Care Unavailable Sakina, Ayanna Attending Unavailable Ayanna Vicente Primary Care Unavailable Ayanna Vicente Admitting Unavailable Allergies Allergy ClassificationReported Allergen(s)Allergy TypeDate of OnsetReaction(s) FacilityCephalosporins (antibiotic) (1 source)Cephalosporins (Antibiotic)Drug Gsaibuj95-09-3795Gygsp, Swelling [facility] (20 sources)cefpodoxime; Translations: [Vantin]Drug Hnqlcgw27-31-7286Pdw swelling (finding)[facility] (20 sources)cepahlosporinsPropensity to adverse reactionsUnkrenown health – renown rehabilitation hospitalEnergyClimate [facility] Other (20 sources)Cephalosporins (Antibiotic); Translations: [Cephalosporins]Allergy to -79-5099Tsbis, Swelling, Swelling (morphologic abnormality), Eye swelling (finding), UnknownThe Jewish HospitalComment on above: Eyes swelled also (20 sources)cefpodoxime; Translations: [CEFPODOXIME]Drug Uwawvtr32-22-5088 Unknown, [facility] (1 source)AmoxicillinDrug Ybzkslx32-96-7074Cxq [facility] (15 sources)Medicinal cephalosporin and acting as antibacterial agent (FN)Drug allergyUnkButler Hospital [employer] Other (2 sources)Bacitracin / Neomycin / Polymyxin BDrug AllergyUnkButler Hospital [employer] Other (20 sources)Bacitracin; Translations: [bacitracin]Drug Wvuimoj55-93-4922RzvtyccMagruder Hospital (20 sources)Neomycin; Translations: [neomycin]Drug Cvokzle12-33-0881NsicnduMagruder Hospital (20 sources)polymyxin B; Translations: [polymyxin B]Allergy to substance 16-23-2298OxxieyqMagruder Hospital (1 source)cefpodoximeDrug Sjsoweo56-20-2195WwvzdhlqaThe [facility] Medications Current Medications MedicationDrug Class(es)DatesSig (Normalized)Sig (Original)acetaminophen 325 mg / oxyCODONE hydrochloride 5 mg oral tablet (20 sources)Opioid AgonistStart: 32-56-6607Rnkkpjspb-Acetaminophen (Percocet) 5- 325 mg tablet Active 1 TAB PO .COMPLEX 60 April 28, 2025 1 tab orally one to two times a day as needed Complies with drug therapyStart: 02-05-2024 End: 51-89-4254Mthewgfse-Acetaminophen (Percocet) 5-325 mg tablet Discontinued 1 TAB PO .COMPLEX 60 FebruaryApril 28, 2025 12:20pm 1 tab orally one to two times a day as neededStart: 42-40-0738kwwOPGFQD-Acetaminophen 5-325 MG 1 tablet Orally one to two times a day as needed for 30 days Jul, ActiveStart: 77-24-3931helSURZNI-Acetaminophen 5-325 MG 1 tablet Orally one to two times a day as needed for 30 days Apr, ActiveStart: 01-24-2022 End: 77-14-1332beuj 1 tablet by mouth every six hours as needed for pain Oxycodone-Acetaminophen 5-325 mg Tablet Discontinued 1 TAB PO Q6H as needed for Pain 7 7 JanuaryFebruary 05, 2024 9:06amStart: 01-14-2022 End: 93-44-2199xgwh 1 tablet by mouth once daily as needed for painOxycodone- Acetaminophen 5-325 mg tablet Discontinued 1 TAB PO Daily as needed for Pain January 14, 2022 12:00am January 24, 2022 3:09pmStart: 39-10-1668wust 1 tablet by mouth every six hoursacetaminophen-oxycodone 325 mg-5 mg oral tablet tab(s), Oral, q6hr, Refill(s) 0 Start Date: 10/26/20atus: Ordered Repeat number: 1 Start: 38-34-0198esto 1 tablet by mouth every six hoursacetaminophen-oxycodone 325 mg-5 mg oral tablet tab(s), Oral, q6hr, Refill(s) 0 Start Date: 10/26/20 Status: OrderedStart: 03-26-2017 End: 28-37-6666jujw 1 tablet by mouth every six hours as needed for pain Oxycodone-Acetaminophen 5-325 mg Tablet Discontinued 1 TAB PO Q6H as needed for Pain Scale 1 - 5 4014 March 26, 2017 12:00am April 02, 2017 9:59am Start: 03-13-2017 End: 25-26-3107tfwd 1 tablet by mouth every four to six hours as needed for pain Oxycodone-Acetaminophen 5-325 mg Tablet Discontinued 1 TAB PO EVERY 4-6 HOURS as needed for Pain March 13, 2017 12:00am April 02, 2017 9:59amStart: 83-33-8920OOPOARBXH-ACETAMINOPHEN 5-325 mg ORAL tablet as needed. 07/19/2011 ActiveComment on above:as needed.[id number] 200 actuat albuterol 0.09 mg/actuat metered dose inhaler (6 sources)beta2-Adrenergic AgonistStart: 61-34-3389qlji 2.5 mg by inhalation every eight hours as needed for wheezingAlbuterol Sulfate 2.5 mg /3 mL (0.083 %) solution for nebulization Active 2.5 MG INHALATION Q8H as needed for shortness of breath or wheezing 63 April 26, 2025 12:00am Complies with drug therapy Start: 78-45-6348dpwa 1 puff(s) by inhalation every four hoursAlbuterol Sulfate 90 mcg/actuation HFA aerosol inhaler Active 2 PUFF INHALATION Q4H 1 April 26, 2025 12:00am Complies with drug therapyascorbic acid 500 mg oral tablet (20 sources)Vitamin CStart: 95-50-0490dpge 1 tablet by mouth once dailyAscorbic Acid (Vitamin C) 500 mg tablet Active 500 MG PO Daily October 21, 2023 12:00am FreeTextSi tablet Orally Once a day; Note: Source Status: Taking; Provider: Mike Luther ( ) Complies with drug therapytake 1 tablet by mouth every twenty-four hoursVitamin C 500 MG 1 tablet Orally Once a day Active aspirin 81 mg chewable tablet (20 sources)Platelet Aggregation Inhibitor, Nonsteroidal Anti-inflammatory Drug Start: 73-87-7016buii 1 mg by mouth once dailyaspirin 81 mg Oral EC Tab mg tab(s), Oral, Daily, Refills(s) 0 Start Date: 10/26/20 Status: Ordered Repeat number: 1Start: 03-13-2017 End: 09-04-2107sctq 1 tablet by mouth once dailyAspirin 81 mg Tablet,Chewable Discontinued 81 MG PO Daily April 02, 2017 12:00am January 24, 2022 3:09pmStart: 94-62-8358WRIUKWS 81MG TABLET Indications: Other specified idiopathic peripheral neuropathy Take one (1) tablet daily . 0 02/20/2004 Active Aspirin 81 mg 1 tablet once a day ActiveComment on above:Take one (1) tablet daily .atorvastatin 20 mg oral tablet (20 sources)HMG-CoA Reductase InhibitorStart: 00-73-6354jfri 1 tablet by mouth once dailyAtorvastatin 20 mg tablet Active 20 MG PO Daily April 28, 2025 12:01pm Complies with drug therapyStart: 04-01-2025 End: 62-98-2534sgir 1 tablet by mouth once dailyAtorvastatin 20 mg tablet Discontinued 0 .ROUTE .COMPLEX 90 April 01, 2025 7:40am April 28, 2025 12:01pm TAKE 1 TABLET BY MOUTH DAILYStart: 10-13-2023 End: 38-25-5091qffa 1 tablet by mouth once dailyAtorvastatin 20 mg tablet Discontinued 0 .ROUTE .COMPLEX 90 October 13, 2023 2:08pm October 21, 2023 3:22pm TAKE 1 TABLET BY MOUTH DAILYStart: 10-13-2023 End: 89-14-4181qvfe 1 tablet by mouth once dailyAtorvastatin Discontinued 0 .ROUTE .COMPLEX 90 October 13, 2023 1:08pm October 21, 2023 2:22pm TAKE 1TABLET BY MOUTH DAILYStart: 10-13-2023 End: 46-32-3071lgjw 1 tablet by mouth once dailyAtorvastatin Discontinued 0 .ROUTE .COMPLEX 90 October 13, 2023 2:08pm October 21, 2023 3:22pm TAKE 1TABLET BY MOUTH DAILYStart: 81-19-0475fuxc 1 tablet by mouth once dailyAtorvastatin Active 0 .ROUTE .COMPLEX 90 October 13, 2023 2:08pm TAKE 1 TABLET BY MOUTH DAILYStart: 02-20-2004 End: 25-17-5773gkau 1 tablet by mouth once dailyAtorvastatin 20 mg tablet Discontinued 20 MG PO Daily October 21, 2023 3:22pm April 19, 2024 4:16pm Start: 29-78-1568RYYVCSR 10MG TABLET Indications: Other specified idiopathic peripheral neuropathy Take 20 mg by mouth. 0 02/20/2004 ActiveStart: 02-20-2004 LIPITOR 10MG TABLET Indications: Other specified idiopathic peripheral neuropathy Take one(1) tablet daily. 0 02/20/2004 ActiveComment on above:Take one(1) tablet daily.Take 20 mg by mouth. B-Complex With Vitamin C tablet (7 sources)Start: 09-18-8220lnrp 1 tablet by mouth once dailyB-Complex With Vitamin C tablet Active 1 TAB PO Daily December 16, 2024 12:00am Complies with drug therapyStart: 16-80-9764qkpw 1 tablet by mouth once dailyStart: 69-91-2153hzbv 1 tablet by mouth once dailyB-Complex With Vitamin C tablet Active 1 TAB PO Daily December 16, 2024 12:00amCentrum Silver (20 sources)Centrum Silver ActiveCENTRUM SILVER TABLET (12 sources)Start: 40-17-3733NSCOPSX SILVER TABLET Indications: Other specified idiopathic peripheral neuropathy Take one(1) tablet daily. 0 02/20/2004 Active Comment on above:Take one(1) tablet daily.cholecalciferol 0.125 mg oral capsule (20 sources)Vitamin DStart: 78-13-6958fkubkmrvurktbjy (Vitamin D-3) 125 MCG (5000 UT) capsule 5,000 Units 10/21/2023 ActiveStart: 53-83-2578Wtlfoqozyxlescz (Vitamin D3) 125 mcg (5,000 unit) capsule Active 5000 UNIT PO As Directed October 21, 2023 12:00am FreeTextSig: as directed Orally; Note: Source Status: Taking; Provider: Mike Luther ( ) Complies with drug therapyVitamin D3 125 MCG (5000 UT) as directed Orally ActiveVitamin D3 125 MCG (5000 UT) as directed Orally Activeciprofloxacin 500 mg oral tablet (20 sources)Quinolone AntimicrobialStart: 02-08-2025 End: 62-45-3631oqfa 1 tablet by mouth every twelve hoursCipro 500 mg Tab 500 mg = 1 tab(s), Oral, q12hr, X 7 day(s), # 14 tab(s), Refills(s) 0, Pharmacy: [facility], 178, cm, 02/08/25 9:03:00 EDT, Height/Length Dosing, 105.1, kg, 02/08/25 9:03:00 EDT, Weight Dosing Start Date: 02/08/25 Stop Date: 02/15/25 Status: Ordered Quantity: 14.0 Unit: tab(s) Repeat number: 1Start: 02-10-2024 End: 95-77-7410mcdl 1 tablet by mouth twice dailyCiprofloxacin Hcl (Cipro) 250 mg tablet Discontinued 250 MG PO Twice daily 04 17February 10, 2024 12:00am March 08, 2024 2:47pmStart: 05-20-2018 End: 29-89-6288aygd 1 tablet by mouth twice dailyCiprofloxacin Hcl (Cipro) 500 mg tablet Discontinued 500 MG PO Twice daily 14 August 11, 2024 2:38pm November 10, 2024 3:51pmdoxycycline hyclate 100 mg oral capsule (1 source)Tetracycline-class DrugStart: 41-67-2251cfly 1 capsule by mouth twice dailyDoxycycline Hyclate 100 mg capsule Active 100 MG PO Twice daily 20 April 28, 2025 12:00am Complies with drug therapyestradiol 0.1 mg/ml vaginal cream (15 sources)EstrogenStart: 13-53-1406Yezodbz 0.1 mg/g Cream See Instructions, 42.5 gm, Refill(s) 6, apply a pea-sized amount vaginally and around the urethra 3x per week for UTI prevention, [employer], 178, cm, 02/08/25 9 :03:00 EDT, Height/Length Dosing, 105.1, kg, 02/08/25 9:03:00 EDT, Weight Dosing Start Date: 02/08/25 Status: Ordered Quantity: 42.5 Unit: g Repeat number: 7 Start: 69-78-5039Mohxeoybz 0.01 % (0.1 mg/gram) cream Active VAGINAL 3 Times a week November 10, 2024 12:00am Complies with drug therapyStart: 53-77-4237Buufuzo 0.1 MG/GM vaginal cream See Instructions, 42.5 gm, Refill(s) 6, apply a pea- sized amount vaginally and around the urethra 3x per week for UTI prevention, [employer] #[facility], 178, cm, 08/16/24 9:10:00 EST, Height/Length Dosing, 103, kg, 08/16/24 9:10:00 EST, Weight Dosing 08/16/2024 ActiveStart: 08-16-2024 Estrace 0.1 mg/g Cream See Instructions, 42.5 gm, Refill(s) 6, apply a pea-sized amount vaginally and around the urethra 3x per week for UTI prevention, [employer] #[facility], 178, cm, 08/16/24 9:10:00 EST, Height/Length Dosing, 103, kg, 08/16/24 9:10:00 EST, Weight Dosing Start Date: 08/16/24 Status: Orderedezetimibe 10 mg oral tablet (20 sources)Dietary Cholesterol Absorption InhibitorStart: 01-73-2430aubr 1 tablet by mouth once dailyEzetimibe 10 mg tablet Active 10 MG PO Daily April 28, 2025 12:00pm Complies with drug therapyStart: 03-30-2024 End: 30-76-7282mapr 1 tablet by mouth once dailyEzetimibe 10 mg tablet Discontinued 0 .ROUTE .COMPLEX April 01, 2025 7:40am April 28, 2025 12:01pm TAKE 1 TABLET BY MOUTH DAILYStart: 39-73-6457wfxs 1 tablet by mouth once dailyEzetimibe Active 0 .ROUTE .COMPLEX March 30, 2024 9:02am TAKE 1 TABLET BY MOUTH ONCE DAILYStart: 72-01-6960ufxf 1 tablet by mouth once daily Ezetimibe Active 0 .ROUTE .COMPLEX March 30, 2024 10:02am TAKE 1 TABLET BY MOUTH ONCE DAILYStart: 02-20-2004 End: 78-94-2357ivpm 1 tablet by mouth at bedtimeEzetimibe 10 mg Tablet Discontinued 10 MG PO Bedtime January 24, 2022 12:00am March 30, 2024 10:03amComment on above:Take one(1) tablet daily.Glucometer (20 sources)Start: 34-74-5752Lvxadgstng Feb, ActivehydroCHLOROthiazide 25 mg / triamterene 37.5 mg oral tablet (20 sources)Potassium-sparing Diuretic, Thiazide DiureticStart: 89-06-1331duox 0.5 tablet by mouth once dailyTriamterene-Hydrochlorothiazid 37.5-25 mg tablet Active 0 .ROUTE .COMPLEX 45 April 01, 2025 7:40am TAKE 1/2 (ONE-HALF) OF A TABLET BY MOUTH DAILY Complies with drug therapyStart: 01-27-2025 End: 99-35-2796wffk 0.5 tablet by mouth once dailyTriamterene-Hydrochlorothiazid 37.5-25 mg tablet Discontinued 0.5 TAB PO Daily January 27, 2025 1:59pm April 01, 2025 7:40amStart: 12-16-2024 End: 67-82-4033fzkv 0.5 tablet by mouth onceTriamterene-Hydrochlorothiazid 37.5- 25 mg tablet Discontinued 0.5 TAB PO Once December 16, 2024 2:33pmJuly 2024 2:00pmStart: 87-86-7187jeukmcppkdi-hydrochlorothiazide (Maxzide-25) 37.5-25 MG tablet 04/19/2024 ActiveStart: 10-13-2023 End: 20-00-7677bsly 0.5 tablet by mouth once dailyTriamterene-Hydrochlorothiazid 37.5-25 mg tablet Discontinued 0 .ROUTE .COMPLEX 45 April 19, 2024 4:16pm December 16, 2024 2:38pm TAKE 1/2 (ONE-HALF) OF A TABLET BY MOUTH DAILYStart: 03-13-2017 End: 48-30-1752wtgx 0.5 tablet by mouth once dailyTriamterene-Hydrochlorothiazid 37.5-25 mg tablet Discontinued 0 PO Daily October 13, 2023 12:00am October 13, 2023 2:09pm take 1/2 tablet by mouth daily End: 35-27-9693kcrnwdwuibk-hydrochlorothiazide (Maxzide) 75-50 MG tablet 1 (one) time each day at the same time. 06/23/2024 Discontinuedhydroxychloroquine sulfate 200 mg oral tablet (20 sources)Antimalarial, Antirheumatic AgentStart: 59-81-6473wznb 1 tablet by mouth once dailyHydroxychloroquine (Plaquenil) 200 mg tablet Active 200 MG PO Daily December 16, 2024 12:00am Complieswith drug therapyStart: 08-11-2024 End: 20-08-8424wxer 1 tablet by mouth twice dailyHydroxychloroquine 200 mg tablet Discontinued 200 MG PO Twice daily August 11, 2024 1:00am 2024 3:52pmStart: 01-09-2022 End: 08-88-8846sphy 2 tablets by mouth once dailyhydrOXYchloroQUINE (PLAQUENIL) 200 mg tablet Indications: Primary osteoarthritis involving multiplejoints Take 2 tablets by mouth once daily. 180 tablet 3 05/17/2024 12/17/2024 Discontinued Start: 61-86-3542mbss 400 mg by mouth once dailyPlaquenil 400 mg, Oral, Daily, Refills(s) 0 Start Date: 12/19/20 Status: OrderedStart: 03-13-2017 End: 76-10-2232oqke 1 tablet by mouth once dailyHydroxychloroquine 200 mg Tablet Discontinued 200 MG PO Daily April 02, 2017 12:00am January 13, 2022 4:45pmtake 1 tablet by mouth twice dailyhydroxychloroquine (Plaquenil) 200 MG tablet take 1 tablet (200MG) by ORAL route 2 times every day Oral Active Plaquenil 200 mg 1 tablet twice a day ActiveComment on above:Take 400 mg by mouth once daily.3 ml insulin glargine 100 unt/ml pen injector (20 sources)Insulin AnalogStart: 02-10-2024 End: 08-08-6945Rwmqwyx Glargine (Lantus Solostar U-100 Insulin) 100 unit/mL (3 mL) insulin pen Active 36 UNIT SUBCUT Every evening 45 90 January 11, 2025 9:44am Complies with drug therapyStart: 10-21-2023 End: 15-26-0889Ymaxtsc Glargine (Lantus Solostar U-100 Insulin) 100 unit/mL (3 mL) insulin pen Discontinued 34 UNIT SUBCUT Every evening October 21, 2023 3:50pm February 10, 2024 3:07pmStart: 10-20-2023 End: 65-90-1576Xydgctr Glargine (Lantus Solostar U-100 Insulin) 100 unit/mL (3 mL) insulin pen Discontinued 46 UNIT SUBCUT Daily at bedtime October 20, 2023 12:00am October 20, 2023 2:21pmStart: 10-02-2022 End: 77-74-3346Uzmvjdo Glargine (Lantus Solostar U-100 Insulin) 100 unit/mL (3 mL) insulin pen Discontinued 0 .ROUTE .COMPLEX 45 October 20, 2023 2:21pm October 21, 2023 3:51pm INJECT 46 UNITS SUBCUTANEOUSLY AT BEDTIMEStart: 10-02-2022 Lantus SoloStar 100 UNIT/ML pen 10/02/2022 ActiveStart: 01-13-2022 End: 50-32-6922ihdxhq 21 [IU] by subcutaneous injection once daily at bedtime Insulin Glargine Discontinued 21 UNIT SUBCUT Daily at bedtime January 12, 2022 11:00pm January 24, 2022 2:09pmStart: 01-13-2022 End: 20-75-1544rfnmyu 21 [IU] by subcutaneous injection once daily at bedtime Insulin Glargine Discontinued 21 UNIT SUBCUT Daily at bedtime January 13, 2022 12:00am January 24, 2022 3:09pmStart: 62-95-4943Mknfgh SoloStar 300 UNIT/ML as directed Subcutaneous November, Not-TakingStart: 01-69-8394Arfnmk Solostar Pen 100 units/mL subcutaneous solution SubCutaneous, Daily, Refills(s) 0 Start Date: 10/26/20 Status: Ordered Repeat number: 1Start: 03-13-2017 End: 22-04-7788kxaagw 10 [IU] by subcutaneous injection once daily at bedtime Insulin Glargine (Lantus Solostar U-100 Insulin) 100 unit/mL (3 mL) Insulin Pen Discontinued 10 UNIT SUBCUT Daily at bedtime March 13, 2017 12:00am April 02, 2017 9:58aminsulin glargine (Lantus) 100 UNIT/ML injection Activeinsulin glargine (LANTUS) 100 unit/mL injection Inject subcutaneously. 21 units Active Lantus SoloStar 100 UNIT/ML inject 46 units subcutaneously AT BEDTIME quantity sufficient for 90 days ActiveLantus SoloStar 100 UNIT/ML inject 30 units subcutaneously AT BEDTIME ActiveLantus SoloStar 100 UNIT/ML 30 units Subcutaneous qd hs ActiveComment on above:Inject subcutaneously. 21 units ketoconazole 20 mg/ml topical cream (18 sources)Azole Antifungalketoconazole (NIZOral) 2 % cream Activeketoconazole (NIZOral) 2 % cream 1 application to affected area on the feet topically two times daily for 30 day(s) Activelevothyroxine sodium 0.1 mg oral tablet (20 sources)l-ThyroxineStart: 34-18-8565raxw 1 tablet by mouth in the morning Levothyroxine 100 mcg tablet Active 100 MCG PO .COMPLEX April 28, 2025 12:00pm 100 mcg orally TAKE 1 TABLET BY MOUTH IN THE MORNING ON AN EMPTY STOMACH. Do not eat or drink for 30-45 MINUTES after taking; Complies with drug therapyStart: 04-01-2025 End: 90-53-9288zjyp 1 tablet by mouth in the morningLevothyroxine 100 mcg tablet Discontinued 0 .ROUTE .COMPLEX April 01, 2025 7:40am April 28, 2025 12:01pm TAKE 1 TABLET BY MOUTH IN THE MORNING ON AN EMPTY STOMACH. Do not eat or drink for 30-45 MINUTES after takingStart: 10-21-2023 End: 27-16-7161fkus 1 tablet by mouth once daily in the morningLevothyroxine 100 mcg tablet Discontinued 100 MCG PO Daily April 19, 2024 4:18pm April 01, 2025 7:40am TAKE 1 TABLET BY MOUTH EVERY MORNING ON AN EMPTY STOMACH DO NOT EAT OR DRINK FOR 30-45 MIN AFTER TAKINGStart: 51-19-8794elhp 1 tablet by mouth once dailySynthroid 100 mcg Tab 100 mcg = 1 tab(s), Oral, Daily, Refills(s) 0 Start Date: 10/26/20 Status: Ordered Repeat number: 1Start: 03-13-2017 End: 49-91-5634injo 1 tablet by mouth once dailyLevothyroxine 75 mcg Tablet Discontinued 75 MCG PO Daily at 0730 30 30 January 24, 2022 12:00am October 21, 2023 3:14pmStart: 62-22-5530ZDHWVCXAHBQHB 88 mcg ORAL tablet 06/10/2011 Active End: 15-49-7545jorn 1 tablet by mouth once dailylevothyroxine (Synthroid) 50 MCG tablet take 1 tablet by ORAL route every day Oral 06/23/2024 Discontinuedtake 1 tablet by mouth once daily in the morningLevothyroxine Sodium 100 mcg TAKE 1 TABLET BY MOUTH EVERY MORNING ON AN EMPTY STOMACH Activelisinopril 10 mg oral tablet (20 sources)Angiotensin Converting Enzyme InhibitorStart: 94-97-7477ovsk 1 tablet by mouth once dailyLisinopril 10 mg tablet Active 10 MG PO Daily April 28, 2025 12:00pm Complies with drug therapyStart: 04-01-2025 End: 47-16-6398ihot 1 tablet by mouth once dailyLisinopril 10 mg tablet Discontinued 0 .ROUTE .COMPLEX April 01, 2025 7:40am April 12:01pm TAKE 1 TABLET BY MOUTH DAILYStart: 10-13-2023 End: 79-41-8877npwy 1 tablet by mouth once dailyLisinopril 10 mg tablet Discontinued 0 .ROUTE .COMPLEX October 13, 2023 2:08pm October 21, 2023 3:51pm TAKE 1 TABLET BY MOUTH DAILYStart: 05-09-2011 End: 48-62-0011tkot 1 tablet by mouth once dailyLisinopril 10 mg tablet Discontinued 10 MG PO Daily October 21, 2023 3:51pm April 19, 2024 4:16pm Start: 45-52-8735bhvz 10 mg by mouth once dailyZESTRIL 20MG TABLET Indications: Other specified idiopathic peripheral neuropathy Take 10 mg by mouth once daily. 0 02/20/2004 ActiveStart: 02-20-2004 End: 98-28-3300bujtebzwtd (ZESTRIL, PRINIVIL) 20 mg tabletComment on above:Take one(1) tablet daily.Take 10 mg by mouth once daily. loperamide hydrochloride 2 mg oral tablet (20 sources)Opioid AgonistStart: 87-60-8947xmwc 1 tablet by mouth once as needed Imodium A-D 2 MG 1 tablet as needed Orally PRN prn Sep, ActiveStart: 66-40-5414yiwo 1 tablet by mouth every six hoursImodium A-D 2 MG 1 tablet as needed Orally Four times a day Sep, Activemagnesium oxide 400 mg oral tablet (6 sources)Start: 62-66-6085wayc 1 tablet by mouth once dailyMagnesium Oxide 400 mg (241.3 mg magnesium) tablet Active 400 MG PO Daily January 27, 2025 12:00am Complies with drug therapymetFORMIN hydrochloride 500 mg oral tablet (20 sources)BiguanideStart: 01-27-2025 End: 46-50-1826kpkr 1 tablet by mouth twice dailyMetformin 500 mg tablet Active 500 MG PO Twice daily April 01, 2025 9:54am Complies with drug therapy Start: 12-19-2020 End: 54-15-5120efzh 1 tablet by mouth twice dailyMetformin 1,000 mg tablet Discontinued 1000 MG PO Twice daily October 21, 2023 12:00am April 19, 2024 4:16pmStart: 04-02-2017 End: 83-69-6474lrxc 2 tablets by mouth twice daily at mealtimeMetformin 500 mg Tablet Discontinued 1000 MG PO Twice daily with meals 120 January 24, 2022 12:00am October 21, 2023 1:47pmStart: 04-02-2017 End: 28-55-0447beya 1000 mg by mouth twice daily at mealtimeMetformin Discontinued 1000 MG PO Twice daily with meals 120 January 23, 2022 11:00pm October 21, 2023 12:47pmStart: 05-09-2011 End: 47-68-1000jfnr 1 tablet by mouth twice dailyMetformin 1,000 mg Tablet Discontinued 1000 MG PO Twice daily March 13, 2017 12:00am April 02, 2017 9:58amComment on above:Take 1,000 mg by mouth twice daily with meals. 24 hr mirabegron 25 mg extended release oral tablet (20 sources)beta3-Adrenergic Agonistmirabegron ER (Myrbetriq) 25 MG 24 hr tablet 1 (one) time each day at the same time ActiveMultiple Vitamin (Tab-A-Sivan) tablet (18 sources)Start: 27-35-7207bhpc 1 tablet by mouth once dailyMultiple Vitamin (Tab-A-Sivan) tablet Take 1 tablet by mouth Daily 01/24/2022 ActiveStart: 70-84-4350hfji 1 tablet by mouth in the morningMultiple Vitamin (Tab-A-Sivan) tablet Take 1 tablet by mouth in the morning. 01/24/2022 ActiveStart: 01-24-2022 take 1 tablet by mouth in the morningMultiple Vitamin (Tab-A-Sivan) tablet Take 1 tablet by mouth in the morning. 0 01/24/2022 ActiveMultivitamin preparation (20 sources)Multivitamin ActiveMultivitamin With Folic Acid (Thera) 400 mcg Tablet (20 sources)Start: 32-57-0473kquk 1 tablet by mouth once dailyMultivitamin With Folic Acid (Thera) 400 mcg Tablet Active 1 TAB PO Daily January 24, 2022 12:00am Complies with drug therapyStart: 80-16-4037kpxk 1 tablet by mouth once dailyStart: 42-41-8261htsx 1 tablet by mouth once dailyMultivitamin With Folic Acid (Thera) 400 mcg Tablet Active 1 TAB PO Daily January 23, 2022 11:00pm Start: 07-31-1802zfsw 1 tablet by mouth once dailyMultivitamin With Folic Acid (Thera) 400 mcg Tablet Active 1 TAB PO Daily January 24, 2022 12:00amStart: 04-02-2017 End: 89-29-1992pqqt 1 tablet by mouth once dailyMultivitamin With Folic Acid (Thera) 400 mcg Tablet Discontinued 1 TAB PO Daily April 01, 2017 11:00pm January 24, 2022 2:09pmStart: 04-02-2017 End: 70-55-1834gzju 1 tablet by mouth once dailyMultivitamin With Folic Acid (Thera) 400 mcg Tablet Discontinued 1 TAB PO Daily April 02, 2017 12:00am January 24, 2022 3:09pmMultivitamins and Minerals (4 sources)Start: 94-00-5519Sszlrhsltexoe and Minerals Refill(s) 0 Start Date: 10/26/20 Status: Ordered Repeat number: 1Start: 91-85-9482Fnaywcjrgvohv and Minerals Refill(s) 0 Start Date: 10/26/20 Status: Orderedoxybutynin chloride 5 mg oral tablet (20 sources)Cholinergic Muscarinic AntagonistStart: 05-41-3676vdrn 1 tablet by mouth once dailyOxybutynin Chloride 5 mg tablet Active 5 MG PO Daily December 16, 2024 12:00am Complies with drug therapyStart: 67-73-8212shyp 1 tablet by mouth three times daily as neededoxybutynin (Ditropan) 5 MG tablet See Instructions, can take 1 tab po up to TID PRN incontinence, #90 tab(s), Refills(s) 3, Pharmacy: [id number], 178, cm, 02/11/23 11:43:00 EDT, Radha t/Length Dosing, 106.9, kg, 02/11/23 11:43:00 EDT, Weight Dosing 02/11/2023 ActiveStart: 61-02-1145fxte 1 tablet by mouth every twenty-four hoursDitropan XL 10 MG 1 tablet Orally Once a day Sep, Not-TakingpredniSONE 20 mg oral tablet (4 sources)Start: 72-10-3582yjog 3 tablets by mouth once daily at mealtime, then take 2 tablets by mouth once daily, then take 1 tablet by mouth once daily at mealtimePrednisone 20 mg tablet Active 0 PO .with food or milk 18 April 28, 2025 12:00am take 3 tablets a day x3 days, 2 tabs a day x3 days and then 1 tab a day x3 days orally WITH FOOD OR MILK; Complies with drug therapyStart: 93-81-8383oocp 1 tablet by mouth twice dailyPrednisone 20 mg tablet Active 20 MG PO Twice daily 10 April 26, 2025 12:00am Complies with drug therapy pregabalin 150 mg oral capsule (20 sources)Start: 02-15-2025 End: 62-15-0270yqek 1 capsule by mouth twice dailyPregabalin (Lyrica) 150 mg capsule Active 150 MG PO Twice daily 180 April 01, 2025 9:46am Complies with drug therapyStart: 06-09-2017 End: 53-96-9086ujdz 1 capsule by mouth twice dailyPregabalin (Lyrica) 225 mg capsule Discontinued 225 MG PO Twice daily 180 October 13, 2023 2:11pm March 30, 2024 10:02amStart: 04-02-2017 End: 31-80-7106wyil 3 capsules by mouth twice dailyPregabalin 75 mg Capsule Discontinued 225 MG PO Twice daily 180 30 January 24, 2022 12:00am October 13, 2023 2:10pmStart: 07-19-2011 End: 65-96-3546dgfq 1 capsule by mouth twice dailyPregabalin (Lyrica) 225 mg Capsule Discontinued 225 MG PO Twice daily March 13, 2017 12:00am April 02, 2017 9:59amComment on above:Take 225 mg by mouth twice daily.24 hr propranolol hydrochloride 60 mg extended release oral capsule (20 sources)beta-Adrenergic BlockerStart: 50-55-5339iyhc 1 capsule by mouth once dailyPropranolol 60 mg capsule,extended release 24 hr Active 60 MG PO Daily April 28, 2025 11:59am Complies with drug therapyStart: 04-01-2025 End: 57-19-7147ipcm 1 capsule by mouth once dailyPropranolol 60 mg capsule,extended release 24 hr Discontinued 0 .ROUTE .COMPLEX April 01, 2025 7:40am April 28, 2025 12:01pm TAKE 1 CAPSULE BY MOUTH DAILYStart: 71-16-2483ncna 1 capsule by mouth every twenty-four hours in the morning propranolol LA (Inderal LA) 60 MG 24 hr capsule Take 60 mg by mouth in the morning. 07/12/2023 ActiveStart: 02-20-2004 End: 85-99-5701aiba 1 capsule by mouth once dailyPropranolol 60 mg capsule,extended release 24 hr Discontinued 60 MG PO Daily October 21, 2023 12:00am April 19, 2024 4:16pm FreeTextSig: TAKE 1 CAPSULE BY MOUTH DAILY; Note: Source Status: Taking; Provider: Sakina Izaguirre ( )Comment on above:Take one(1) tablet daily.Triamterene-HCTZ 37.5 mg-25 mg (3 sources)take 0.5 tablet by mouth once dailyTriamterene-HCTZ 37.5 mg-25 mg TAKE 1/2 (ONE-HALF) OF A TABLET BY MOUTH ONCE DAILY for 90 Pmjxum59 hr venlafaxine 75 mg extended release oral capsule (20 sources)Serotonin and Norepinephrine Reuptake InhibitorStart: 17-48-7024auun 1 capsule by mouth once dailyVenlafaxine 75 mg capsule,extended release 24hr Active 75 MG PO Daily January 27, 2025 1:59pm Complies with drug therapyStart: 07-08-2024 End: 48-69-6184omlq 1 capsule by mouth once daily at mealtimeVenlafaxine 75 mg capsule,extended release 24hr Discontinued 0 .ROUTE .COMPLEX July 08, 2024 1:36pm December 16, 2024 2:38pm TAKE 1 CAPSULE BY MOUTH EVERY DAY WITH FOOD Start: 07-08-2024 End: 04-79-1142yufo 1 capsule by mouth once daily at mealtimeVenlafaxine 75 mg capsule,extended release 24hr Discontinued 0 .ROUTE .COMPLEX July 08, 2024 1:36pm December 16, 2024 2:38pm TAKE 1 CAPSULE BY MOUTH EVERY DAY WITH FOOD Start: 07-15-2023 End: 10-01-9743qace 1 capsule by mouth every twenty-four hoursVenlafaxine 75 mg capsule,extended release 24hr Discontinued 75 MG PO Once December 16, 2024 2:34pm January 27, 2025 2:00pmStart: 01-01-2022 End: 79-76-9841srvc 1 capsule by mouth once dailyVenlafaxine 75 mg Capsule,Extended Release 24hr Discontinued 75 MG PO Daily January 24, 2022 12:00am July 08, 2024 1:36pmComment on above:Take 75 mg by mouth once daily.Vitamin B Complex (20 sources)Vitamin B Complex Not-TakingVitamin B Complex ActiveVitamin B Complex oral capsule (4 sources)Start: 08-58-4153cfnh 1 capsule by mouth once dailyVitamin B Complex oral capsule Oral, Daily, Refill(s) 0 Start Date: 10/26/20 Status: Ordered Repeat number: 1Start: 32-55-1051Auvbvhq B Complex oral capsule Oral, Daily, Refill(s) 0 Start Date: 10/26/20 Status: Ordered Completed/Discontinued Medications MedicationDrug Class(es)DatesSig (Normalized)Sig (Original)acetaminophen 325 mg oral tablet (20 sources)Start: 01-15-2022 End: 62-52-0113tick 1-3 tablets by mouth every six hours as needed for pain Acetaminophen 325 mg Tablet Discontinued 650 MG PO Q6H as needed for Pain Scale 1 - 3 or fever 0 January 15, 2022 12:00am January 24, 2022 3:09pmStart: 01-15-2022 End: 92-50-3880wgkf 650 mg by mouth every six hoursAcetaminophen Discontinued 650 MG PO Q6H 0 January 14, 2022 11:00pm January 24, 2022 2:09pmStart: 04-02-2017 End: 45-63-1156cupy 1 tablet by mouth every four hours as needed for pain Acetaminophen 325 mg Tablet Discontinued 325 MG PO Q4H as needed for Pain April 02, 2017 12:00am January 13, 2022 4:42pmStart: 04-02-2017 End: 64-79-9012jqws 2 tablets by mouth every four hours as needed for pain Acetaminophen 325 mg Tablet Discontinued 650 MG PO Q4H as needed for Pain April 02, 2017 12:00am January 13, 2022 4:42pmStart: 04-02-2017 End: 84-67-2827npiw 650 mg by mouth every four hoursAcetaminophen Discontinued 650 MG PO Q4H April 01, 2017 11:00pm January 13, 2022 3:42pmacetaminophen 325 mg / HYDROcodone bitartrate 5 mg oral tablet (20 sources)Opioid AgonistStart: 04-02-2017 End: 89-78-8619fpqa 2 tablets by mouth every four hours as needed for pain Hydrocodone-Acetaminophen 5-325 mg Tablet Discontinued 2 TAB PO Q4H as needed for Severe Pain April 02, 2017 12:00am January 14, 2022 11:19am amoxicillin 500 mg oral capsule (20 sources)Penicillin-class AntibacterialStart: 01-12-2024 End: 71-73-3393nohc 2 capsules by mouth every twelve hoursAmoxicillin 500 mg capsule Discontinued 1000 MG PO Every 12 hours 40 January 12, 2024 12:00am February 05, 2024 8:16amStart: 01-12-2024 End: 42-58-7045wgbo 1000 mg by mouth every twelve hoursAmoxicillin Discontinued 1000 MG PO Every 12 hours 40 January 11, 2024 11:00pm February 05, 2024 7:16am calcium carbonate 1250 mg / cholecalciferol 200 unt oral tablet (20 sources)Vitamin DStart: 04-02-2017 End: 74-81-9602gmnj 1 tablet by mouth once daily in the morningCalcium Carbonate-Vitamin D3 (Oyster Shell Calcium-Vit D3) 500 mg-5 mcg (200 unit) Tablet Discontinued 1 TAB PO Every morning January 24, 2022 12:00am December 16, 2024 2:37pmStart: 03-13-2017 End: 44-01-4111hfou 1 tablet by mouth once dailyCalcium Carbonate-Vitamin D3 (Calcium 600 + D(3)) 600 mg(1,500mg) -200 unit Tablet Discontinued 1 TAB PO daily March 13, 2017 12:00am April 02, 2017 9:58amCalcium Carbonate- Vitamin D3 (Oyster Shell Calcium-Vit D3) 500 mg(1,250mg) -200 unit Tablet (20 sources)Start: 04-02-2017 End: 52-30-5079zlqo 1 tablet by mouth once daily in the morningCalcium Carbonate-Vitamin D3 (Oyster Shell Calcium-Vit D3) 500 mg(1,250mg) -200 unit Tablet Discontinued 1 TAB PO Every morning April 01, 2017 11:00pm January 24, 2022 2:09pmStart: 04-02-2017 End: 83-28-0172fzyx 1 tablet by mouth once daily in the morningCalcium Carbonate-Vitamin D3 (Oyster Shell Calcium-Vit D3) 500 mg(1,250mg) -200 unit Tablet Discontinued 1 TAB PO Every morning April 02, 2017 12:00am January 24, 2022 3:09pmCalcium Carbonate-Vitamin D3 (Oyster Shell Calcium-Vit D3) 500 mg-5 mcg (200 unit) Tablet (20 sources)Start: 01-24-2022 End: 21-13-1560vgic 1 tablet by mouth once daily in the morningCalcium Carbonate-Vitamin D3 (Oyster Shell Calcium-Vit D3) 500 mg-5 mcg (200 unit) Tablet Discontinued 1 TAB PO Every morning January 24, 2022 12:00am December 16, 2024 2:37pmStart: 75-39-0937wswb 1 tablet by mouth once daily in the morningCalcium Carbonate-Vitamin D3 (Oyster Shell Calcium-Vit D3) 500 mg-5 mcg (200 unit) Tablet Active 1 TAB PO Every morning January 23, 2022 11:00pm Start: 67-84-6915ccvh 1 tablet by mouth once daily in the morningCalcium Carbonate-Vitamin D3 (Oyster Shell Calcium-Vit D3) 500 mg-5 mcg (200 unit) Tablet Active 1 TAB PO Every morning January 24, 2022 12:00amcitalopram 40 mg oral tablet (20 sources)Serotonin Reuptake InhibitorStart: 03-13-2017 End: 93-07-0298xbfk 1 tablet by mouth once daily in the morningCitalopram 40 mg Tablet Discontinued 40 MG PO Every morning April 02, 2017 12:00am January 13, 2022 4:43pmStart: 02-20-2004 End: 79-29-4382WUYPDZ 20MG TABLET Indications: Other specified idiopathic peripheral neuropathy Take one(1) tabletdaily. 0 02/20/2004 04/04/2022 Discontinued (Discontinued by another Health Care Provider)Comment on above:Take one(1) tablet daily.cyclobenzaprine hydrochloride 5 mg oral tablet (20 sources)Muscle RelaxantStart: 04-02-2017 End: 07-54-2033mrsn 1 tablet by mouth every eight hours as needed for muscle spasmsCyclobenzaprine 5 mg Tablet Discontinued 5 MG PO Q8H as needed for Muscle Spasm 60 April 02, 2017 12:00am January 13, 2022 4:43pmdicyclomine hydrochloride 20 mg oral tablet (20 sources)AnticholinergicStart: 04-05-2024 End: 36-04-9440ocvc 1 tablet by mouth twice dailyDicyclomine 20 mg tablet Discontinued 20 MG PO Twice daily April 05, 2024 12:00am December 16, 2024 2:37pmStart: 29-72-7414rqad 1 tablet by mouth twice daily as neededDicyclomine HCl 20 MG 1 tablet Orally TWICE A DAY NEEDED Dec, Not-Takingdocusate sodium 100 mg oral capsule (20 sources)Start: 04-02-2017 End: 68-84-9605utls 1 capsule by mouth twice dailyDocusate Sodium 100 mg Capsule Discontinued 100 MG PO Twice daily 60 April 02, 2017 12:00am January 13, 2022 4:43pmdocusate sodium 50 mg / sennosides, shelter 8.6 mg oral tablet (20 sources)Start: 03-26-2017 End: 06-79-6879gmda 1 tablet by mouth twice dailySennosides-Docusate Sodium (Dok Plus) 8.6-50 mg Tablet Discontinued 1 TAB PO Twice daily 40 March 26, 2017 12:00am April 02, 2017 9:59am72 hr fentaNYL 0.025 mg/hr transdermal system (20 sources)Opioid AgonistStart: 03-26-2017 End: 66-20-1734Mtbnuuow 25 mcg/hr Patch 72 Hour Discontinued 25 MCG TRANSDERML Every 72 hours 5 March 12:00am April 02, 2017 9:58am ferrous sulfate 324 mg delayed release oral tablet (20 sources)Start: 03-26-2017 End: 72-64-8741kkqg 1 tablet by mouth twice dailyFerrous Sulfate 324 mg (65 mg iron) Tablet,Delayed Release (Dr/Ec) Discontinued 324 MG PO Twice daily April 02, 2017 12:00am January 13, 2022 4:44pmfurosemide 20 mg oral tablet (20 sources)Loop DiureticStart: 01-13-2022 End: 16-56-0426bbip 10 mg by mouth once dailyFurosemide 20 mg tablet Discontinued 10 MG PO Daily at 0800 January 13, 2022 4:48pm January 15, 2022 12:05pm Start: 01-13-2022 End: 90-67-5031wcdv 10 mg by mouth once dailyFurosemide Discontinued 10 MG PO Daily at 0800 January 13, 2022 3:48pm January 15, 2022 11:05amStart: 02-20-2004 End: 56-05-3787cilk 1 tablet by mouth once dailyFurosemide 20 mg Tablet Discontinued 20 MG PO Daily at 0800 April 02, 2017 12:00am January 13, 2022 4:48pmComment on above:Take one(1) tablet daily.Insulin Aspart U-100 (Novolog Flexpen U-100 Insulin) 100 unit/mL (3 mL) Insulin Pen (20 sources)Start: 01-15-2022 End: 91-60-4019Rqseifa Aspart U-100 (Novolog Flexpen U-100 Insulin) 100 unit/mL (3 mL) Insulin Pen Discontinued 0 UNITS SUBCUT 3X/Day with meals and bedtime 0 January 14, 2022 11:00pm January 15, 2022 4:37pmStart: 01-15-2022 End: 54-27-8468Bsuaabq Aspart U-100 (Novolog Flexpen U-100 Insulin) 100 unit/mL (3 mL) Insulin Pen Discontinued 0 UNITS SUBCUT 3X/Day with meals and bedtime 0 January 15, 2022 12:00am January 15, 2022 5:37pmInsulin Aspart U-100 (Novolog Flexpen U-100 Insulin) 100 unit/mL (3 mL) insulin pen (20 sources)Start: 01-15-2022 End: 22-06-1296Finjaxx Aspart U-100 (Novolog Flexpen U-100 Insulin) 100 unit/mL (3 mL) insulin pen Discontinued 0 UNITS SUBCUT 3X/Day with meals and bedtime January 15, 2022 5:37pm January 24, 2022 3:09pm Please contact the information source for Protocol details.Start: 01-15-2022 End: 07-16-8507Cuyxvvg Aspart U-100 (Novolog Flexpen U-100 Insulin) 100 unit/mL (3 mL) insulin pen Discontinued 0 UNITS SUBCUT 3X/Day with meals and bedtime January 15, 2022 4:37pm January 24, 2022 2:09pm Please contact the information source for Protocol details.Start: 01-15-2022 End: 23-91-1853Uniowre Aspart U-100 (Novolog Flexpen U-100 Insulin) 100 unit/mL (3 mL) insulin pen Discontinued 0 UNITS SUBCUT 3X/Day with meals and bedtime January 15, 2022 4:37pm January 24, 2022 2:09pmStart: 01-15-2022 End: 70-90-6390Kwwewby Aspart U-100 (Novolog Flexpen U-100 Insulin) 100 unit/mL (3 mL) insulin pen Discontinued 0 UNITS SUBCUT 3X/Day with meals and bedtime January 15, 2022 5:37pm January 24, 2022 3:09pm3 ml insulin aspart, human 100 unt/ml pen injector (12 sources)Insulin AnalogStart: 01-15-2022 End: 34-84-9039Jfxppvt Aspart U-100 (Novolog Flexpen U-100 Insulin) 100 unit/mL (3 mL) insulin pen Discontinued 0 UNITS SUBCUT 3X/Day with meals and bedtime Protocol: If the corrective scale dose has been administered within the past 4 hours, do not use corrective scale again unless otherwise directed Condition: 1 50-199 mg/dL Dose/Route: 3 unit Condition: 200-249 mg/dL Dose/Route: 4 unit Condition: 250-299 mg/dL Dose/Route: 8 unit Condition: 300-349 mg/dL Dose/Route: 12 unit Condition: 350-399 mg/dL Dose/Route: 14 unit Condition: greater than or = 400 mg/dL Dose/Route: 16 unit January 15, 2022 5:37pm January 24, 2022 3:09pm Please contact the information source for Protocol details.Start: 01-15-2022 End: 74-03-9001Fkhulxs Aspart U-100 (Novolog Flexpen U-100 Insulin) 100 unit/mL (3 mL) Insulin Pen Discontinued 0 UNITS SUBCUT 3X/Day with meals and bedtime 0 January 15, 2022 12:00am January 15, 2022 5:37pm3 ml insulin detemir 100 unt/ml pen injector (20 sources)Insulin AnalogStart: 01-24-2022 End: 25-46-0525Mybsajf Detemir U-100 (Levemir Flextouch U-100 Insuln) 100 unit/mL (3 mL) Insulin Pen Discontinued 25 UNITS SUBCUT Daily at bedtime 7.5 January 24, 2022 12:00am October 21, 2023 3:11pmStart: 04-02-2017 End: 56-16-8064Fchhjsw Detemir U-100 (Levemir Flextouch U100 Insulin) 100 unit/mL (3 mL) Insulin Pen Discontinued 20 UNIT SUBCUT Daily at bedtime 6 April 02, 2017 12:00am May 01, 2017 12:00am 2016 12:03amInsulin Glargine 100 unit/mL Cartridge (12 sources)Start: 01-13-2022 End: 89-72-8580uiaxte 21 [IU] by subcutaneous injection once daily at bedtime Insulin Glargine 100 unit/mL Cartridge Discontinued 21 UNIT SUBCUT Daily at bedtime January 13, 2022 12:00am January 24, 2022 3:09pmStart: 01-13-2022 End: 51-84-6689opcsda 21 [IU] by subcutaneous injection once daily at bedtime Insulin Glargine 100 unit/mL Cartridge Discontinued 21 UNIT SUBCUT Daily at bedtime January 12, 2022 11:00pm January 24, 2022 2:09pmlevoFLOXacin 750 mg oral tablet (20 sources)Quinolone AntimicrobialStart: 01-15-2022 End: 32-86-8366dskr 1 tablet by mouth once dailyLevofloxacin 750 mg tablet Discontinued 750 MG PO Daily 1 January 15, 2022 12:00am January 24, 2022 3:09pm next dose 7/7lidocaine 0.05 mg/mg medicated patch (20 sources)Antiarrhythmic, Amide Local AnestheticStart: 04-02-2017 End: 71-37-6686Ibcqtbuet 5 % Adhesive Patch,Medicated Discontinued 2 EACH TOPICAL Daily April 02, 2017 12:00am January 13, 2022 4:45pmmelatonin 5 mg oral tablet (20 sources)Start: 01-15-2022 End: 98-48-2106hnmd 2 tablets by mouth once daily at bedtimeMelatonin 5 mg Tablet Discontinued 10 MG PO Daily at bedtime 60 January 24, 2022 12:00am October 21, 2023 3:12pmStart: 01-15-2022 End: 87-65-4697vdko 10 mg by mouth once daily at bedtimeMelatonin Discontinued 10 MG PO Daily at bedtime 60 January 23, 2022 11:00pm October 21, 2023 2:12pm End: 48-43-0171LRBVEXGRQ ORAL Take by mouth. 0 02/07/2023 DiscontinuedMelatonin 10 MG as directed Orally ActiveMELATONIN ORAL Take by mouth. 0 ActiveComment on above:Take by mouth.Multivitamin (Multiple Vitamins) Tablet (20 sources)Start: 03-13-2017 End: 19-59-1998fuih 1 tablet by mouth once dailyMultivitamin (Multiple Vitamins) Tablet Discontinued 1 TAB PO Daily March 12, 2017 11:00pm April 02, 2017 8:59amStart: 03-13-2017 End: 63-60-0295oezj 1 tablet by mouth once dailyMultivitamin (Multiple Vitamins) Tablet Discontinued 1 TAB PO Daily March 13, 2017 12:00am April 02, 2017 9:59amnitrofurantoin, macrocrystals 25 mg / nitrofurantoin, monohydrate 75 mg oral capsule (20 sources)Nitrofuran AntibacterialStart: 05-11-2024 End: 21-34-1566wvrp 1 capsule by mouth twice daily at mealtimeNitrofurantoin Monohyd/M-Cryst (Macrobid) 100 mg capsule Discontinued 100 MG PO Twice daily 14 May 11, 2024 12:00am August 11, 2024 2:12pm must administer with a meal/foodStart: 10-20-2023 End: 39-46-8056pdch 1 capsule by mouth twice daily at mealtimeNitrofurantoin Monohyd/M-Cryst (Macrobid) 100 mg capsule Discontinued 100 MG PO Twice daily October 20, 2023 4:08pm January 12, 2024 2:24pm must administer with a meal/food Sennosides (Senna Lax) 8.6 mg Tablet (20 sources)Start: 04-02-2017 End: 03-68-7264Zmsjpfdflx (Senna Lax) 8.6 mg Tablet Discontinued 2 EACH PO DAILY@12 as needed for If no BM in 2 days April 02, 2017 12:00am January 13, 2022 4:47pmStart: 04-02-2017 End: 77-31-7523Druweuopct (Senna Lax) 8.6 mg Tablet Discontinued 2 EACH PO DAILY@12 as needed for If no BM in 2 days April 01, 2017 11:00pm January 13, 2022 3:47pmStart: 04-02-2017 End: 91-42-0238Wsnlgopcqt (Senna Lax) 8.6 mg Tablet Discontinued 2 EACH PO DAILY@12 April 01, 2017 11:00pm January 13, 2022 3:47pmStart: 04-02-2017 End: 43-76-2954Dpasfurwps (Senna Lax) 8.6 mg Tablet Discontinued 2 EACH PO DAILY@12 April 02, 2017 12:00am January 13, 2022 4:47pmsennosides, shelter 8.6 mg oral tablet (6 sources)Start: 04-02-2017 End: 95-02-8108Nytwaicupw (Senna Lax) 8.6 mg Tablet Discontinued 2 EACH PO DAILY@12 as needed for If no BM in 2 days April 02, 2017 12:00am January 13, 2022 4:47pmsulfamethoxazole 800 mg / trimethoprim 160 mg oral tablet (20 sources)Dihydrofolate Reductase Inhibitor Antibacterial, Sulfonamide AntimicrobialStart: 03-26-2017 End: 24-01-1575tomw 1 tablet by mouth twice dailySulfamethoxazole-Trimethoprim 800-160 mg Tablet Discontinued 1 TAB PO Twice daily March 12:00am January 13, 2022 4:47pmtraMADol hydrochloride 50 mg oral tablet (20 sources)Opioid AgonistStart: 01-15-2022 End: 73-34-2448jxdo 1 tablet by mouth every eight hours as needed for pain Tramadol 50 mg Tablet Discontinued 50 MG PO Q8H as needed for Pain Scale 4 - 7 0 January 15, 2022 12:00am January 15, 2022 5:36pmtriamcinolone acetonide 40 mg/ml injectable suspension (20 sources)CorticosteroidStart: 35-51-2895Pqayrey-40 Oct, 20 mgStart: 87-14-2574Rdqekoz -40 mg Apr, 40 mgTRIAMTERENE-HCTZ 37.5-25 TB (2 sources)Start: 02-20-2004 End: 04-40-4563ZFGBVQLCOBJ-HCTZ 37.5-25 TB Indications: Other specified idiopathic peripheral neuropathy Take one(1) tablet daily. 0 02/20/2004 04/04/2022 Discontinued (Discontinued by another Health Care Provider)Start: 28-79-1552RRMODHHJMCV-HCTZ 37.5-25 TB Indications: Other specified idiopathic peripheral neuropathy Take one(1) tablet daily. 0 02/20/2004 ActiveComment on above:Take one(1) tablet daily.trospium chloride 20 mg oral tablet (20 sources)Cholinergic Muscarinic AntagonistStart: 02-24-2024 End: 31-77-5916lpwk 1 tablet by mouth twice dailyTrospium 20 mg tablet Discontinued 20 MG PO Twice daily March 08, 2024 12:00am November 10, 2024 3 :54pmzolpidem tartrate 5 mg oral tablet (20 sources)gamma-Aminobutyric Acid-ergic AgonistStart: 10-16-2023 End: 54-06-5992nveg 1 tablet by mouth once daily at bedtimeZolpidem 5 mg tablet Discontinued 5 MG PO Daily at bedtime 90 October 16, 2023 12:43pm April 1:01pmStart: 89-11-1928ihmm 1 tablet by mouth once daily at bedtime Ambien 5 MG 1 tablet Orally qd hs Sep, ActiveStart: 16-99-2778ybtq 1 tablet by mouth once daily at bedtime as needed for sleepAmbien 10 mg Tab 10 mg = 1 tab(s), Oral, Once a day (at bedtime), PRN for sleep, Refills(s) 0 Start Date: 10/26/20 Status: Ordered Repeat number: 1Start: 80-12-7109qatf 0.5 tablet by mouth once daily at bedtime as neededAmbien 10 mg 1/2 tablet at bedtime as needed Orally Once a day for 90 days Apr, ActiveStart: 03-13-2017 End: 35-45-3427wete 1 tablet by mouth once daily at bedtime as needed for sleep Zolpidem (Ambien) 5 mg tablet Discontinued 5 MG PO Daily at bedtime as needed for Sleep January 13, 2022 4:48pm January 15, 2022 12:05pmComment on above:Take 5 mg by mouth. Problems Active Problems Problem ClassificationProblemDateDocumented DateEpisodic/ChronicAcquired foot deformities (20 sources)Acquired hammer toe of right foot; Translations: [Other hammer toe(s) (acquired), right foot]Onset: 12-27-2021 Resolved: 83-10-0158IofzzhmFtuqxert foot deformities (20 sources)Acquired hammer toe of left foot; Translations: [Other hammer toe(s) (acquired), left foot]Onset: 12-27-2021 Resolved: 77-30-9534LzvjnmjKidlr and unspecified renal failure (20 sources)Injury of kidney; Translations: [Acute kidney failure, unspecified] 15-54-5020NmuiibomQycha bronchitis (3 sources)Bronchiolitis; Translations: [Acute bronchiolitis, unspecified] 03-96-0067FvfcznaaHicnzikgqiyflq/social admission (20 sources)Other reduced mobility; Translations: [Impaired mobility and activities of daily living]86-44-4196PdjohurlEjtliso dysrhythmias (12 sources)Premature beats; Translations: [Other premature depolarization] 25-43-5535KsmznscBmkypjd kidney disease (20 sources)Chronic kidney disease stage 3B ; Translations: [Stage 3b chronic kidney disease]67-59-8985PnsfrqwEbbyiaftxx and other anemia (20 sources)Anemia; Translations: [Anemia, unspecified]09-87-5813Hotuiabu Diabetes mellitus with complications (20 sources)Type II diabetes mellitus uncontrolled; Translations: [Type 2 diabetes mellitus with hyperglycemia]Onset: 07-14-2009 Resolved: 86-27-6693BcvmsytRaojptvq mellitus without complication (20 sources)Diabetes mellitus; Translations: [Type 2 diabetes mellitus without complications]Onset: 735040-65-3686PivllqoTznyfdex of white blood cells (20 sources)Lymphocytosis; Translations: [Lymphocytosis (symptomatic)]Onset: 04-04-2021 Resolved: 00-95-4968LsguaggDlmprebyh of lipid metabolism (20 sources)Hyperlipidemia; Translations: [Hyperlipidemia, unspecified]Onset: 04-04-2021 Resolved: 10-80-8939NgpawvyMnyjnhhvzstono and diverticulitis (20 sources)Diverticulitis; Translations: [Diverticulitis of intestine, part unspecified, without perforation or abscess without bleeding]Onset: 04-04-2021 Resolved: 79-37-6985IxiohrhV Codes: Fall (20 sources)Fall; Translations: [Unspecified fall, initial encounter]01-14-2022 EpisodicEssential hypertension (20 sources)Hypertensive disorder; Translations: [Essential (primary) hypertension]Onset: 07-14-2009 Resolved: 55-94-2155RjeipehOpeeh and electrolyte disorders (16 sources)Hyperkalemia; Translations: [Hyperkalemia]47-84-4043FqktngaiEcgcwivx of upper limb (20 sources)Fracture of unspecified carpal bone, right wrist, initial encounter for closed fracture; Translations: [Fracture at wrist and/or hand level]Onset: 02-06-2022 Resolved: 14-54-2994JargedmdTmeouofmouljp symptoms and ill-defined conditions (20 sources)Mixed incontinence; Translations: [Genuine stress incontinence] Onset: 73-37-4183IigapyjXhfzjezsthadx symptoms and ill-defined conditions (4 sources)Increased frequency of urination; Translations: [Poor stream of urine]91-31-2416WigazbsbFklvvvdg; including migraine (20 sources)Migraine; Translations: [Migraine, unspecified, not intractable, without status migrainosus]ChronicHeadache; including migraine (4 sources)Hzhlafou85-12-0044GmvitkgnFbzjurtmdrwn with complications and secondary hypertension (15 sources)Chronic kidney disease due to hypertension; Translations: [Hypertensive chronic 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 4 chronic kidney disease, or unspecified chronic kidney disease]91-14-7962ZuobpcaKsbvfixgerabb and screening for infectious disease (3 sources)Encounter for immunization; Translations: [Flu vaccine need Z23] Onset: 04-04-2021 Resolved: 47-78-5315EeboaqhfDxhcdhjsd (20 sources)Chronic lymphoid leukemia, disease; Translations: [Chronic lymphocytic leukemia of B-cell type not having achieved remission]Onset: 34-15-3890IgwafdaWmhulbyxegotj (1 source)Axillary lymphadenopathy; Translations: [Localized enlarged lymph nodes]EpisodicMalaise and fatigue (2 sources)Fatigue; Translations: [Other fatigue]73-27-5995ZbqyuolrYyabqzjmcq disorders (18 sources)Atrophy of vagina; Translations: [Postmenopausal atrophic vaginitis] Onset: 198889-78-2295GwjkixaPftllssfovpxt mental health disorders (15 sources)Chronic insomnia; Translations: [Psychophysiologic insomnia] 12-21-6386XhornrwWguh disorders (20 sources)Major depressive disorder, single episode, unspecified; Translations: [Depression]Onset: 04-04-2021 Resolved: 11-52-3871RdbapvnXtvfrlu (20 sources)Onychomycosis; Translations: [Tinea unguium]Onset: 12-08-2022 60-87-9578IgwxgxadFtnlzrpcjzca breast conditions (1 source)Breast signs and symptoms; Translations: [Other signs and symptoms in breast]EpisodicNutritional deficiencies (20 sources)Vitamin D deficiency; Translations: [Vitamin D deficiency, unspecified]78-34-4971EweizqpWuxnpoegsrtbcc (9 sources)Arthritis; Translations: [Osteoarthritis of right hip joint]Onset: 317531-20-0985HljrkthUvpst acquired deformities (20 sources)Deformity of foot; Translations: [Unspecified acquired deformity of unspecified lower leg]33-71-5973HvdkstabXqurk aftercare (6 sources)Other fci (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 therapy; Translations: [Long-term (current) use of other medications]Onset: 02-06-2022 Resolved: 78-29-6213BjgmqhvpEsxdd aftercare (20 sources)Long-term current use of drug therapy; Translations: [Other fci (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 therapy]63-50-5099TsditevjNvnfh aftercare (2 sources)H/O: high risk medication; Translations: [Other fci (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 therapy]35-87-3419NdtvppgnXcisc aftercare (1 source)Drug therapy finding; Translations: [Other fci (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 therapy]02-94-0644QyhlrsntVzjeh aftercare (1 source)half-way (current) use of insulin; Translations: [Type 2 diabetes mellitus without complication, with long-term current use of insulin (HCC)] Onset: 47-27-7698BqpedbreFtksy and unspecified benign neoplasm (20 sources)History of polyp of colon; Translations: [Personal history of colonic polyps]EpisodicOther and unspecified benign neoplasm (1 source)Benign lipomatous neoplasm, unspecifiedEpisodicOther and unspecified benign neoplasm (1 source)Senile angioma; Translations: [Hemangioma of skin and subcutaneous tissue]48-81-7076KdjwhejzMhjgv and unspecified benign neoplasm (1 source)Lipoma of right upper limb; Translations: [Benign lipomatous neoplasm of skin and subcutaneous tissue of right arm]90-18-5760GikfdemqTxzmo circulatory disease (20 sources)Low blood pressure; Translations: [Hypotension, unspecified] 95-04-0956WzwqvkmdCrspf circulatory disease (1 source)Hypotension, unspecified; Translations: [Hypotension, unspecified] 41-55-4417SlhyemxoThzch connective tissue disease (18 sources)Artificial knee joint present; Translations: [Presence of unspecified artificial knee joint]Onset: 272560-71-3247TaoirraYuqof connective tissue disease (20 sources)Fibromyalgia; Translations: [Fibromyalgia]27-58-3985HqwkrumvCegdc connective tissue disease (10 sources)Rheumatism, unspecified; Translations: [Rheumatism, unspecified and fibrositis]Onset: 04-04-2021 Resolved: 97-92-5114AjcwrvcfPoera connective tissue disease (20 sources)Rheumatism; Translations: [Rheumatism, unspecified]10-26-2020 EpisodicOther connective tissue disease (1 source)Pain in both feet; Translations: [Pain in right foot]08-28-2023 EpisodicOther connective tissue disease (1 source)Fibromyalgia; Translations: [Fibromyalgia]Onset: 23-61-7940Gruofofq Other diseases of bladder and urethra (20 sources)Bladder irritability; Translations: [Other specified disorders of bladder]44-11-4583OmcrcicQgrtn diseases of bladder and urethra (20 sources)Spasm of bladder; Translations: [Other specified disorders of bladder]ChronicOther diseases of bladder and urethra (2 sources)Other specified disorders of bladder; Translations: [Bladder instability N32.89]Onset: 04-04-2021 Resolved: 11-26-2830GnntgtaLyxus diseases of bladder and urethra (2 sources)Detrusor overactivity; Translations: [Overactive bladder]Onset: 54-72-2175NabothgGsqse diseases of bladder and urethra (20 sources)Overactive bladder; Translations: [Overactive bladder]Onset: 096471-40-7738RxrtflkKcqug ear and sense organ disorders (1 source)Otalgia, right ear; Translations: [Otalgia, unspecified]EpisodicOther gastrointestinal disorders (20 sources)Irritable bowel syndrome; Translations: [Irritable bowel syndrome without diarrhea]ChronicOther gastrointestinal disorders (20 sources)Irritable bowel syndrome with diarrhea; Translations: [Irritable bowel syndrome with diarrhea]50-35-9752LcvdzxfHtybu gastrointestinal disorders (4 sources)Irritable bowel syndrome without diarrheaOnset: 09-13-2021 Resolved: 83-95-4037LnxoqgpFdkru gastrointestinal disorders (9 sources)Irritable bowel syndrome with diarrhea; Translations: [Irritable bowel syndrome]Onset: 12-17-2021 Resolved: 26-02-0279KxqahpqPkvzr gastrointestinal disorders (20 sources)Constipation; Translations: [Constipation, unspecified]Onset: 633251-17-9639EvebqihzEcbla gastrointestinal disorders (20 sources)Dysphagia; Translations: [Dysphagia, unspecified]EpisodicOther injuries and conditions due to external causes (3 sources)Other injury of unspecified body region, initial encounter; Translations: [Abrasion or friction burn of other, multiple, and unspecified sites, without mention of infection]Onset: 02-06-2022 Resolved: 58-37-2102MnxriapkPypei injuries and conditions due to external causes (20 sources)Minor head injury; Translations: [Unspecified injury of head, initial encounter]50-56-8368WqkbizrwYqrhf injuries and conditions due to external causes (20 sources)Abrasion; Translations: [Other injury of unspecified body region, initial encounter]58-27-9688SraqdjoaLsvlu injuries and conditions due to external causes (3 sources)Unspecified injury of head, initial encounter; Translations: [Head injury, unspecified]37-55-4061SxjzgcadKfzre liver diseases (20 sources)Steatosis of liver; Translations: [Fatty (change of) liver, not elsewhere classified]ChronicOther liver diseases (1 source)Abnormal levels of other serum enzymesEpisodicOther lower respiratory disease (20 sources)Solitary nodule of lung; Translations: [Solitary pulmonary nodule] EpisodicOther lower respiratory disease (1 source)Rib pain; Translations: [Pleurodynia]EpisodicOther lower respiratory disease (4 sources)Nodule of veqi56-78-5503MxuinhmrFtfpd lower respiratory disease (1 source)PleurodyniaEpisodicOther nervous system disorders (20 sources)Neuropathy; Translations: [Polyneuropathy, unspecified]10-26-2020 ChronicOther nervous system disorders (20 sources)Polyneuropathy, unspecified; Translations: [Mononeuritis of unspecified site]Onset: 04-04-2021 Resolved: 07-32-3280TinbxybSnprj nervous system disorders (18 sources)Peripheral nerve disease ; Translations: [Polyneuropathy, unspecified]23-91-9524SvngkazJrlav nervous system disorders (2 sources)Disturbance of attention; Translations: [Attention and concentration deficit]12-49-6703ScuabhjBsxqj nervous system disorders (2 sources)Chronic pain; Translations: [Other chronic pain]83-51-2368Shzohjf Other nervous system disorders (20 sources)Nervous system symptoms; Translations: [Other abnormalities of gait and mobility]EpisodicOther nervous system disorders (2 sources)Other abnormalities of gait and mobilityOnset: 02-06-2022 Resolved: 71-16-8134BurdkagvAmsmz nervous system disorders (20 sources)Postoperative pain ; Translations: [Other acute postprocedural pain] 39-42-7016TybvfvbkNswyh nervous system disorders (6 sources)Impaired cognition; Translations: [Other symptoms and signs involving cognitive functions and awareness]91-26-0046BzwoiimjZtxrv nervous system disorders (2 sources)Word finding difficulty ; Translations: [Other speech disturbances] 21-39-3310HicymcabSjjnb non-traumatic joint disorders (4 sources)Sacroiliac -85-8336EegmiuxxZxtek non-traumatic joint disorders (1 source)Pain in unspecified hipEpisodicOther non-traumatic joint disorders (1 source)Pain in right hipEpisodicOther non-traumatic joint disorders (15 sources)Hip pain; Translations: [Pain in left hip]70-05-3426CtcdcjlhAsnhr non-traumatic joint disorders (10 sources)Pain in left knee; Translations: [Pain in joint, lower leg] 04-14-5807UszghggsNqnbg nutritional; endocrine; and metabolic disorders (20 sources)Obese class I; Translations: [Body mass index (BMI) 31.0-31.9, adult]ChronicOther nutritional; endocrine; and metabolic disorders (1 source)Body mass index (BMI) 31.0-31.9, adultChronicOther nutritional; endocrine; and metabolic disorders (13 sources)Body mass index 30+ - obesity; Translations: [Body mass index (BMI) 32.0-32.9, adult]86-72-3665LlhssbvMnhtj nutritional; endocrine; and metabolic disorders (2 sources)Body mass index (BMI) 32.0-32.9, adult; Translations: [Body Mass Index 32.0-32.9, adult]27-42-8245NbuoecpDptsm nutritional; endocrine; and metabolic disorders (2 sources)Abnormal weight loss; Translations: [Weight loss R63.4]Onset: 04-04-2021 Resolved: 86-29-0375CmayfvtdIfumj skin disorders (8 sources)Hidradenitis; Translations: [Hidradenitis suppurativa]02-15-2025 EpisodicComment on above:right axillaOther skin disorders (1 source)Seborrheic keratosis; Translations: [Other seborrheic keratosis] 97-07-0651WismnxssYcgky skin disorders (1 source)Actinic keratosis; Translations: [Actinic keratosis]25-68-4547Qczlebcp Other skin disorders (1 source)Lentiginosis; Translations: [Other melanin hyperpigmentation] 67-81-5200JjmkzetiKzubmb media and related conditions (20 sources)Otitis media of right ear; Translations: [Otitis media, unspecified, right ear]58-75-5880MatclmnjBdmjahoe codes; unclassified (7 sources)Sedative, hypnotic AND/OR anxiolytic-induced sleep disorder; Translations: [Other sleep disorders]64-48-7776KiiezqjWixotpht codes; unclassified (8 sources)Other sleep disorders; Translations: [Other sleep disturbances] 12-17-0037KtulghiAsalxqot codes; unclassified (20 sources)Insomnia; Translations: [Insomnia, unspecified]92-40-5846Oliabhhc Residual codes; unclassified (12 sources)Insomnia, unspecified; Translations: [Insomnia, unspecified]Onset: 04-04-2021 Resolved: 61-66-2857ZgjxayyoMhjibopc codes; unclassified (5 sources)Edema, unspecified; Translations: [Peripheral edema R60.9]Onset: 04-04-2021 Resolved: 20-44-4660LkualhauNpamcrvr codes; unclassified (20 sources)History of operative procedure on lumbosacral spinal structure; Translations: [Other specified postprocedural states]78-61-7074YhqahznhDxlimano codes; unclassified (20 sources)Peripheral edema; Translations: [Localized edema]24-39-2487Tnngchls Residual codes; unclassified (4 sources)Localized edema; Translations: [Edema]59-50-8479IglpmhjpQszfrcpu codes; unclassified (15 sources)Memory impairment; Translations: [Other amnesia]88-71-7782Tfncpugo Residual codes; unclassified (4 sources)Other amnesia; Translations: [Memory loss]48-81-9569EmbiooqoKfqyyuyv codes; unclassified (2 sources)Amnesia; Translations: [Other amnesia]58-56-3828PzhjqxytWiofzbqg codes; unclassified (2 sources)Family history of dementia; Translations: [Family history of other mental and behavioral disorders]21-35-4816WoermndmPshwctkwgz arthritis and related disease (18 sources)Rheumatoid arthritis; Translations: [Rheumatoid arthritis, unspecified]Onset: 135973-45-6658TgzyweaEunmjvkdzz (except in labor) (20 sources)Sepsis; Translations: [Sepsis, unspecified organism]01-13-2022 EpisodicSpondylosis; intervertebral disc disorders; other back problems (20 sources)Lumbosacral spondylosis without myelopathy; Translations: [Other spondylosis with radiculopathy, lumbar region]Onset: 12-06-2021 Resolved: 61-06-5311BjnzckwKkxjdhoskup; intervertebral disc disorders; other back problems (20 sources)Low back pain; Translations: [Cervicalgia]Onset: 04-04-2021 Resolved: 42-15-7475HnucopmhYvbsmewvgug injury; contusion (20 sources)Hematoma of right lower leg; Translations: [Contusion of right lower leg, initial encounter]23-62-2261MntlsghkBwfbryp disorders (20 sources)Hypothyroidism; Translations: [Hypothyroidism, unspecified]Onset: 04-04-2021 Resolved: 01-76-4246LvskfydWeeztaquubrc (1 source)Cough, unspecified; Translations: [Cough, unspecified]Onset: 04-26-2025 Past or Other Problems Problem ClassificationProblemDateDocumented DateEpisodic/ChronicDeficiency and other anemia (1 source)Anemia, unspecifiedOnset: 10-02-2021 Resolved: 67-50-6734BrrkokqdHmqxj acquired deformities (1 source)Unspecified acquired deformity of unspecified lower legOnset: 12-27-2021 Resolved: 49-03-1459HiobtajkFjnwr and unspecified benign neoplasm (2 sources)Personal history of colonic polypsOnset: 09-13-2021 Resolved: 34-53-1087LltvebloIbyza connective tissue disease (18 sources)Left achilles tendonitis; Translations: [Achilles tendinitis, left leg]Onset: 187203-78-6664RmvmtfmrEmzgh connective tissue disease (18 sources)Calcaneal spur; Translations: [Calcaneal spur, unspecified foot] Onset: 426553-26-9556PevsateqEldfw female genital disorders (18 sources)Burning sensation of vulva; Translations: [Other specified conditions associated with female genital organs and menstrual cycle]Onset: 101372-79-2787EbulflvoOderi gastrointestinal disorders (1 source)Dysphagia, unspecifiedOnset: 01-07-2022 Resolved: 23-60-6851YkmuxvosIqozl gastrointestinal disorders (3 sources)Change in bowel habit; Translations: [Change in bowel habit]Onset: 09-13-2021 Resolved: 83-58-8685HktwjqsvWgtkp gastrointestinal disorders (15 sources)Diarrhea; Translations: [Diarrhea, unspecified]Onset: 06-23-2024 37-51-8654BujiwnxxSetfz nervous system disorders (18 sources)Notalgia paresthetica; Translations: [Paresthesia of skin]Onset: 768555-93-9544UwsemozyLczry nervous system disorders (18 sources)Unsteady when standing; Translations: [Unsteadiness on feet]Onset: 287615-23-4776VclxvcwnPuryd non-traumatic joint disorders (20 sources)Pain in right knee; Translations: [Pain in joint, lower leg]Onset: 07-24-2011 Resolved: 23-46-6822GuvjvfnzTohnf non-traumatic joint disorders (1 source)Pain in unspecified knee; Translations: [Knee pain M25.569]Onset: 04-04-2021 Resolved: 75-66-8253VrhacmjbYaord non-traumatic joint disorders (6 sources)Pain in left hip; Translations: [Pain in joint, pelvic region and thigh]Onset: 95-09-5765BuzzmogzDydcs screening for suspected conditions (not mental disorders or infectious disease) (20 sources)Encounter for screening mammogram for malignant neoplasm of breast; Translations: [Other specified abnormal findings of blood chemistry]Onset: 04-04-2021 Resolved: 56-13-4757XjrrldyvDvfudryjgdwh (2 sources)Cough R05.9Onset: 10-01-2021 Resolved: 76-36-5516Sskklcdcahcy (1 source)Lumbar pain M54.50Urinary tract infections (20 sources)Cystitis, unspecified without hematuria; Translations: [Acute urinary tract infection]Onset: 06-18-2021 Resolved: 09-60-0318Jmrhgtdt Results Test NameValueInterpretationReference RangeFacilityX-ray reportOrdered By: Galo Rodriguez on 68-84-1516Icpyd reportC[facility] [address] [address] XRay Report Signed Patient: Kathy Washburn MR#: [id number] : 1940 Acct:[id number] Age/Sex: 84 / F ADM Date: 5 Loc: [facility] Room: Type: [facility] Attending Dr: Mckenzie Christopher GRAPHICS PRODUCTION SPECIALIST Copies to: Mckenzie Christopher APRN~ Ordering Provider: Mckenzie Christopher APRN Date of Service: 04/26/25 XR/XR chest 2V*: COUGH,CONGESTION Chest 2 views CLINICAL HISTORY: Cough congestion and fatigue for 4 days. COMPARISON: Chest 01/13/2022 FINDINGS: Heart normal size. Chronic interstitial changes. No consolidation pneumothoraxpleural effusion or free air. Neurostimulator device is in place. XR/XR chest 2V* IMPRESSION: NO ACUTE CARDIOPULMONARY ABNORMALITY. Impression dictated by: Galo Rodriguez Jr., D.O. 04/26/2025 2:40 PM Dictation Location: RADIO-PC-27 Transcribed By: [facility] 04/26/25 1440 Dictated By: Galo Rodriguez Jr, DO 04/26/25 1436 Signed By: 04/26/25 1440 [facility]on 72-71-9093HL chest 2V*[facility] [address] XRay Report Signed Patient: Kathy Washburn MR#: [id number] : 1940 Acct:[id number] Age/Sex: 84 / F ADM Date: 04/26/25 Loc: [facility] Room: Type: [facility] Attending Dr: Mckenzie Christopher GRAPHICS PRODUCTION SPECIALIST Copies to: Mckenzie Christopher APRN Ordering Provider: Mckenzie Christopher APRN Date of [...] Jr., D.O. 04/26/2025 2:40 PM Dictation Location: RADIO-PC-27 Transcribed By: [facility] 04/26/25 1440 Dictated By: Galo Rodriguez Jr, DO 04/26/25 1436 Signed By: 04/26/25 1440[facility] Physician GroupCryotherapy, skin lesionOrdered By: Corazon Dietrich on 18-18-7533USZU HealthcareBasophils/100 WBC Manual cnt (Bld)Ordered By: Andcory Azul on 73-32-8260Crnjvpnjt/100 WBC (Bld)0.0 %Low 0.2-2.0[facility] HospitalEosinophils/100 WBC Manual cnt (Bld) Ordered By: Andcory Azul on 33-95-7776Flxyvygxpdy/100 WBC (Bld)2.0 % 0.9-7.0[facility] HospitalErythrocyte distribution width Auto (RBC) [Ratio]Ordered By: Andcory Azul on 01-95-7910Garaxowwctg distribution width (RBC) [Ratio]13.3 %11.0-15.0[facility] Glomerular filtration rate (GFR) estimation in non- AmericanOrdered By: Andcory Azul on 54-78-4637ATB/1.73 sq M.predicted among non-blacks MDRD (S/P/Bld) [Vol rate/Area]41 mL/min/{1.73_m2}Low>=60 mL/min/1.73m 2FOhio State Health SystemHematocrit Auto (Bld) [Volume fraction]Ordered By: Andcory Azul on 16-04-5696Vflkeppyxr (Bld) [Volume fraction]39.4 % 36.0-48.0[facility] HospitalHemoglobin [Mass/volume] in Blood Ordered By: Andcory Azul on 64-19-5146Eggllgperg (Bld) [Mass/Vol]12.8 g/dL 12.0-16.0[facility] HospitalLaboratory - Chemistry and Chemistry - challengeOrdered By: Andcory Azul on 84-53-0552Elzjsya [Mass/Vol]8.9 mg/dL8.5-10.1FOhio State Health SystemChloride [Moles/Vol]107 mmol/L 98-107[facility] HospitalCO2 [Moles/Vol]30.0 mmol/L21.0-32.0 [facility] HospitalCreatinine [Mass/Vol]1.24 mg/dLHigh0.55-1.02 [facility] HospitalGFR/1.73 sq M.predicted MDRD (S/P/Bld) [Vol rate/Area]50 mL/min/{1.73_m2}Low>=60 mL/min/1.73m 2FOhio State Health SystemGlucose [Mass/Vol]144 mg/qCTuxt75-769SskngqqjqThe [facility] Hospital Potassium [Moles/Vol]4.8 mmol/L3.5-5.1FCincinnati VA Medical Centerodium [Moles/Vol]144 mmol/U302-126BrzqqcsueThe Jewish HospitalUrea nitrogen [Mass/Vol]28.0 mg/dLHigh7.0-18.0[facility] HospitalUrea nitrogen/Creatinine [Mass ratio]22.6 mg/mgThe [facility] Hospital Laboratory - Hematology and Cell countsOrdered By: Andrius Giedraitis on 63-86-7227Xqcfaruivhn/100 WBC (Bld)70.0 %High20.5-60.0[facility] HospitalMonocytes/100 WBC (Bld)6.0 %1.7-12.0[facility] Leukocytes [#/volume] corrected for nucleated erythrocytes in Blood by Automated counOrdered By: Andrius Giedraitis on 31-23-3873SLP corrected for nucl RBC Auto (Bld) [#/Vol]18.5 10 3/uLHigh4.0-11.0[facility] Auto (RBC) [Entitic mass]Ordered By: Andrius Giedraitis on 35-47-6076TVM (RBC) [Entitic mass]30.5 pg26.7-34.0[facility] CenterHC Auto (RBC) [Mass/Vol]Ordered By: Andrius Giedraitis on 43-01-2089CYOI (RBC) [Mass/Vol]32.5 g/dL29.9-35.2FOhio State Health SystemMCV Auto (RBC) [Entitic vol] Ordered By: Andrius Giedraitis on 46-32-9243YTS (RBC) [Entitic vol]93.8 fL 81.0-99.0[facility] HospitalNo Panel InformationOrdered By: Andrius Giedraitis on 72-61-4813Aoxflceo Basophils (Manual)0.00 10 3/uL0.00-0.10 [facility] HospitalEosinophils # (Manual)0.37 10 3/uL0.00-0.70 [facility] HospitalLymphocytes # (Manual)12.95 10 3/uLHigh 1.20-3.80[facility] HospitalMonocytes # (Manual)1.11 10 3/uLHigh 0.30-0.80[facility] Hospitalegmented Neutrophils # (Manual)4.07 10 3/uL1.4-6.5FOhio State Health SystemPlatelet mean volume Auto (Bld) [Entitic vol]Ordered By: Andrius Giedraitis on 73-79-3138Jyvqkrbk mean volume (Bld) [Entitic vol]11.6 fL9.5-13.5FOhio State Health SystemPlatelets Auto (Bld) [#/Vol]Ordered By: Andrius Giedraitis on 59-50-7774Gausunpvd (Bld) [#/Vol]219 10 3/vE930-095PzadncstiThe Jewish HospitalRBC Auto (Bld) [#/Vol] Ordered By: Andrius Giedraitis on 35-77-5974ISS (Bld) [#/Vol]4.20 10 6/uL 4.20-5.40[facility] Hospitalegmented neutrophils/100 WBC Manual cnt (Bld)Ordered By: Andrius Giedraitis on 62-26-6014Pvkcctxva neutrophils/100 WBC (Bld)22.0 %Low43.0-75.0[facility] District Hospitalerum or plasma anion gap determinationOrdered By: Andrius Giedraitis on 00-31-6503Awnqh gap [Moles/Vol]11.8 mmol/LFOhio State Health SystemBasophils/100 WBC Manual cnt (Bld)Ordered By: Andrius Giedraitis on 36-54-5951Aihhdxjjk/100 WBC (Bld)0.0 %Low0.2-2.0[facility] HospitalEosinophils/100 WBC Manual cnt (Bld) Ordered By: Andrius Augusteraitis on 22-98-4528Ehnvfvcmfmc/100 WBC (Bld)0.0 %Low 0.9-7.0[facility] HospitalErythrocyte distribution width Auto (RBC) [Ratio]Ordered By: Andrius Molinaraitis on 11-60-6585Xbtxnvthmgy distribution width (RBC) [Ratio]13.7 %11.0-15.0[facility] Estimated glomerular filtration rate (GFR) non- AmericanOrdered By: Andrius Carlyedraitis on 77-12-5199VNE/1.73 sq M.predicted among non-blacks MDRD (S/P/Bld) [Vol rate/Area]35 mL/min/{1.73_m2}Low>=60 mL/min/1.73m 2FOhio State Health SystemHematocrit Auto (Bld) [Volume fraction]Ordered By: Andrius Augusterarory on 39-33-2568Mwnutqpdan (Bld) [Volume fraction]36.4 % 36.0-48.0[facility] HospitalHemoglobin [Mass/volume] in Blood Ordered By: Andrius Augusterarory on 23-26-8485Xncynsxoej (Bld) [Mass/Vol]11.6 g/dL Low12.0-16.0[facility] HospitalLaboratory - Chemistry and Chemistry - challengeOrdered By: Andrius Molinaraitis on 22-69-8804Atkgmlm [Mass/Vol]9.0 mg/dL8.5-10.1FOhio State Health SystemChloride [Moles/Vol] 107 mmol/B40-825RdjttkhhkThe Jewish HospitalCO2 [Moles/Vol]30.8 mmol/L 21.0-32.0[facility] HospitalCreatinine [Mass/Vol]1.43 mg/dLHigh 0.55-1.02The [facility] HospitalGFR/1.73 sq M.predicted MDRD (S/P/Bld) [Vol rate/Area]43 mL/min/{1.73_m2}Low>=60 mL/min/1.73m 2FOhio State Health SystemGlucose [Mass/Vol]120 mg/zCWelz29-853WxqbtmktiThe Jewish HospitalPotassium [Moles/Vol]5.0 mmol/L3.5-5.1FOhio State Health System Sodium [Moles/Vol]143 mmol/E177-907HhjbruntaThe Jewish HospitalUrea nitrogen [Mass/Vol]36.0 mg/dLHigh7.0-18.0[facility] HospitalUrea nitrogen/Creatinine [Mass ratio]25.2 mg/mgThe [facility] Hospital Laboratory - Hematology and Cell countsOrdered By: Andrius Giedraitis on 92-67-8695Rvckoxiqcrj/100 WBC (Bld)51.0 %20.5-60.0[facility] HospitalMonocytes/100 WBC (Bld)5.0 %1.7-12.0[facility] Leukocytes [#/volume] corrected for nucleated erythrocytes in Blood by Automated counOrdered By: Andrius Giedraitis on 87-76-2624SWW corrected for nucl RBC Auto (Bld) [#/Vol]19.3 10 3/uLHigh4.0-11.0[facility] Auto (RBC) [Entitic mass]Ordered By: Andrius Giedraitis on 74-19-4182KLA (RBC) [Entitic mass]30.2 pg26.7-34.0[facility] CenterHC Auto (RBC) [Mass/Vol]Ordered By: Andrius Giedraitis on 48-74-6257QORP (RBC) [Mass/Vol]31.9 g/dL29.9-35.2FOhio State Health SystemMCV Auto (RBC) [Entitic vol] Ordered By: Andrius Giedraitis on 25-61-9990LOA (RBC) [Entitic vol]94.8 fL 81.0-99.0[facility] HospitalNo Panel InformationOrdered By: Andrius Giedraitis on 45-37-6794Djcandlv Basophils (Manual)0.00 10 3/uL0.00-0.10 [facility] HospitalEosinophils # (Manual)0.00 10 3/uL0.00-0.70 [facility] HospitalLymphocytes # (Manual)9.84 10 3/uLHigh1.20-3.80 [facility] HospitalMonocytes # (Manual)0.96 10 3/uLHigh0.30-0.80 [facility] Hospitalegmented Neutrophils # (Manual)8.49 10 3/uL High1.4-6.5FOhio State Health SystemPlatelet mean volume Auto (Bld) [Entitic vol]Ordered By: Andrius Giedraitis on 41-97-7408Wiivzlgz mean volume (Bld) [Entitic vol]11.8 fL9.5-13.5FOhio State Health SystemPlatelets Auto (Bld) [#/Vol]Ordered By: Andrius Giedraitis on 41-24-0494Kskjjojmt (Bld) [#/Vol]213 10 3/oT762-788UdjvtdmriThe Jewish HospitalRBC Auto (Bld) [#/Vol] Ordered By: Andrius Giedraitis on 33-96-5778YAD (Bld) [#/Vol]3.84 10 6/uLLow 4.20-5.40[facility] Hospitalegmented neutrophils/100 WBC Manual cnt (Bld)Ordered By: Andrius Giedraitis on 72-81-7425Jxrgiummf neutrophils/100 WBC (Bld)44.0 %43.0-75.0[facility] Hospitalerum or plasma anion gap determinationOrdered By: Andrius Giedraitis on 95-21-9973Oldxr gap [Moles/Vol]10.2 mmol/LFCincinnati VA Medical Centermudge cell detection Ordered By: Andrius Giedraitis on 01-14-3589Ydmpbx cells LM Ql (Bld)SEEN The [facility] HospitalAmbulatory Visit Summaryon 05-62-0413Hcpyifggpj Visit SummaryAmbulatory Visit Summary MARKUS KATHY Briggs :1940 Visit Date:02/08/2025 Ambulatory Visit Instructions Your [...] APRN, [place] X Where: [facility] [address] [address]- You Need to Schedule the Following Appointments Follow Up with Follow up in Spring When: Medications What How Much When Instructions New ciprofloxacin (Cipro 500 mg Tab) 1 Tablets By Mouth Every 12 hours Duration: 7 Days Pickup at [facility] Unchanged estradiol topical (Estrace 0.1 mg/ g Cream) See instructions apply a pea-sized amount vaginally and around the urethra 3x per week for UTI prevention Pickup at [facility] Unchanged trospium (trospium 20 mg oral tablet) 1 Tablets By Mouth 2 times a day Duration: 30 Days Unchanged acetaminophen-oxycodone (acetaminophen-oxycodone 325 mg-5 mg oral [...] By Mouth Every day Contact prescribing physician ifquestions or concerns Unchanged furosemide (Lasix 20 mg [...] Tablets By Mouth Every day Contact prescribing physicianif questions or concerns Unchanged metformin (metformin 1000 [...] Information [facility] (more content not included)...[facility] Urology Office/Clinic Noteon 24-72-6609Drmtkwz Office/Clinic NoteUrology Office/Clinic Note Chief Complaint 6 month F/U [...] (N39.41: Urge incontinence) S/p Botox 100u 08/30/21. [place] sxs only improved for a few weeks or so. Wasn't very impressed w improvement. Does not wish to repeat Botox. Failed Myrbetriq and Oxybutynin previously. TODAY: BBSQ 18 poor control. Using Trospium IR PRN when traveling or going out of the house. Helps a lot. Minimizes side effectsby using PRN. Did review [employer] brochure I provided last ov. Came w some questions. Discussed at length today. Pt would like to continue to think about it but is interested in BNE in future. Ordered: Complex E&M Add on G2211 E&M of Est. Patient Moderate 30-39 Min 73784 2. Recurrent UTI (N39.0: Urinary tract infection, [...] 11/01/24 - 7.0 01/17/25 - BUN 35 [employer] 1.2 GFR [address] Arevalo Renal US 12/22/24 - no stones or obstruction. 08/16/24: add herbals, start estrogen cream, Improve/tighten glucose control. UA completed in office today shows no significant microhematuria or signs of infection. A1c is a lot better. Explained this may be why her infections have improved. She is pleased to hearthis. No recent infections. Requesting Cipro Rx to have on hand for infection. Risks/benefits/side effects discussed. Continues estrogen cream and herbal preventives. Ordered: Complex E&M Add on G2211 E&M of Est. Patient Moderate 30-39 Min 46267 Orders: ciprofloxacin, 500 mg = 1 tab(s), Oral, q12hr, X 7 day(s), # 14 tab(s), Refills(s) 0, Pharmacy: [email or web address], 178, cm, 02/08/25 9:03:00 EDT, Height/Length Dosing, 105.1, kg, 02/08/25 9:03:00 EDT, Weight Dosing estradiol topical, See Instructions, 42.5 gm, Refill(s) 6, apply a pea-sized amount vaginally and around the urethra 3x per week for UTI prevention, [email or web address], 178, cm, 02/08/25 9:03:00 EDT, Height/Length [...] BID Maxzide-25 oral tablet (more content not included)...[facility] HospitalComment on above:Result Comment: Electronically Signed By: JAX BECKMAN, SUSAN Miller\.br\Date and Time Signed: 02/08/2510:51 EDTFL barium enemaon 53-97-5958YN barium [facility]aC[facility] Main [address] [address] Fluoroscopy Report Signed Patient: Kathy Washburn MR#: [id number] : 1940 Acct:[id number] Age/Sex: 84 / F ADM Date: 01/19/25 Loc: XD Room: Type: [facility] CLI Attending Dr: Moe Betts DO Copies to: [...] Arndt M.D. 01/19/2025 2:20 PM Dictation Location: [place] [address] Transcribed By: [facility] 01/19/25 1420 Dictated By: Stanford Arndt DO 01/19/25 1417 Signed By: 01/19/25 1420[facility] Physician GroupFluoroscopy reportOrdered By: Stanford Arndt on 25-71-6495CY Unspecified body region [facility] Main [address] [address] Fluoroscopy Report Signed Patient: Kathy Washburn MR#: [id number] : 1940 Acct:[id number] Age/Sex: 84 / F ADM Date: 5 Loc: XD Room: Type: REG CLI Attending Dr: Moe Betts DO Copies to: [...] Arndt M.D. 01/19/2025 2:20 PM Dictation Location: [place] [address] Transcribed By: [facility] 01/19/25 1420 Dictated By: Stanford Arndt DO 01/19/25 1417 Signed By: 01/19/25 1420 [facility] HospitalErythrocyte distribution width Auto (RBC) [Ratio]Ordered By: Lesli Arevalo on 80-12-7547Fuuxpnbxqif distribution width (RBC) [Ratio]14.3 %11.0-15.0The [facility] HospitalEstimated glomerular filtration rate (GFR) non- AmericanOrdered By: Lesli Arevalo on 01-17-2025 GFR/1.73 sq M.predicted among non-blacks MDRD (S/P/Bld) [Vol rate/Area]43 mL/min/{1.73_m2}Low>=60 mL/min/1.73m 2FOhio State Health System Hematocrit Auto (Bld) [Volume fraction]Ordered By: Lesli Arevalo on 01-17-2025 Hematocrit (Bld) [Volume fraction]39.4 %36.0-48.0The [facility] HospitalHemoglobin [Mass/volume] in BloodOrdered By: Lesli Arevalo on 01-17-2025 Hemoglobin (Bld) [Mass/Vol]12.7 g/dL12.0-16.0[facility] Laboratory - Chemistry and Chemistry - challengeOrdered By: Lesli Arevalo on 52-60-5272Vlpulvj [Mass/Vol]3.5 g/dL3.4-5.0[facility] Calcium [Mass/Vol]9.0 mg/dL8.5-10.1FOhio State Health SystemChloride [Moles/Vol]109 mmol/ISzmo76-412TmmcqnsuhThe Jewish HospitalCO2 [Moles/Vol] 29.7 mmol/L21.0-32.0[facility] HospitalCreatinine [Mass/Vol]1.20 mg/dLHigh0.55-1.02The [facility] HospitalGFR/1.73 sq M.predicted MDRD (S/P/Bld) [Vol rate/Area]52 mL/min/{1.73_m2}Low>=60 mL/min/1.73m 2FOhio State Health SystemGlucose [Mass/Vol]99 mg/eE07-129OefcrqbbtThe Jewish HospitalMagnesium [Mass/Vol]1.5 mg/dLLow1.8-2.4FOhio State Health SystemPotassium [Moles/Vol]4.9 mmol/L3.5-5.1FOhio State Health System Sodium [Moles/Vol]146 mmol/OVqru826-774CbjdjbhriThe Jewish HospitalUrate [Mass/Vol]6.2 mg/dLHigh2.6-6.0[facility] HospitalUrea nitrogen [Mass/Vol]35.0 mg/dLHigh7.0-18.0[facility] HospitalUrea nitrogen/Creatinine [Mass ratio]29.2 mg/mgThe [facility] Bilirubin Ql (U)NegativeNEGATIVEThe Jewish HospitalGlucose (U) [Mass/Vol]NegativeNEGATIVEThe Jewish HospitalKetones Ql (U) NegativeNEGATIVEThe Jewish HospitalpH (U)6.0 [pH]5.0-9.0[facility] Hospitalpecific gravity (U) [Rel density]1.0251.005-1.025 The [facility] HospitalUrobilinogen Qn (U)0.2 {Jose'U}/dL0.2-1.0 [facility] HospitalLaboratory - Specimen informationOrdered By: Lesli Arevalo on 83-84-1717Qrmwensjvi (U)CLEARCLEARFOhio State Health SystemColor (U)DK. YELLOWYELLOWThe Jewish HospitalLaboratory - UrinalysisOrdered By: Lesli Arevalo on 67-03-0952Kmqcbddur esterase Test strip Ql (U)NegativeNEGATIVEThe Jewish HospitalMucus Ql (Urine sed)TRACE AbnormalNONE SEENThe Jewish HospitalNitrite Ql (U)NegativeNEGATIVE [facility] HospitalProtein (U) [Mass/Vol]41.4 mg/dLHigh<=11.9 [facility] HospitalProtein Ql (U)TRACE mg/dLNEG/TRACEThe Jewish HospitalLeukocytes [#/volume] corrected for nucleated erythrocytes in Blood by Automated counOrdered By: Lesli Arevalo on 18-69-6874AMT corrected for nucl RBC Auto (Bld) [#/Vol]18.8 10 3/uLHigh4.0-11.0[facility] CenterH Auto (RBC) [Entitic mass]Ordered By: Lesli Arevalo on 19-95-9710QBZ (RBC) [Entitic mass]30.2 pg26.7-34.0[facility] CenterHC Auto (RBC) [Mass/Vol]Ordered By: Lesli Arevalo on 06-37-6696PJWJ (RBC) [Mass/Vol]32.2 g/dL29.9-35.2FOhio State Health SystemMCV Auto (RBC) [Entitic vol]Ordered By: Lesli Arevalo on 50-34-9427OYD (RBC) [Entitic vol]93.6 fL 81.0-99.0The [facility] HospitalNo Panel InformationOrdered By: Lesli Arevalo on 093488-Rdxcfbc Vitamin D Total61.8 ng/mLThe Jewish HospitalComment on above:<20 ng/mL Vit D afzjwiepa70-<30 ng/mL Vit D juweqsnarxqy03-708 ng/mL Vit D sufficient>100 ng/mL Potential Toxicity Parathyroid Hormone (Intact)42 pg/lH66-15QqpaqiugrThe [facility] Hospital Comment on above:Performed at: [address] [id number] Director: Narinder Elam PhD, Phone: [phone] Level 4.1 mg/dL2.6-4.7FOhio State Health SystemUrine BacteriaSMALL #/HPF AbnormalNONE SEENThe Jewish HospitalUrine Occult BloodNegative NEGATIVEThe Jewish HospitalUrine Other CastsNONE SEEN #/LPFNONE SEENThe Jewish HospitalUrine Other CrystalsNone Seen #/HPFNone SeenThe Jewish HospitalUrine Random Xcqytrqamr237.94 mg/dL 20.00-300.00The Jewish HospitalUrine RBC0-2 #/HPF0-2FOhio State Health SystemUrine Squamous Epithelial CellsRARE #/LPFNONE/RARE The [facility] HospitalUrine WBC0-2 #/HPFAbnormalNONE [facility] Medical CenterPlatelet mean volume Auto (Bld) [Entitic vol]Ordered By: Lesli Arevalo on 23-68-2165Rxlzypcq mean volume (Bld) [Entitic vol]11.4 fL9.5-13.5 The [facility] HospitalPlatelets Auto (Bld) [#/Vol]Ordered By: Lesli Arevalo on 59-37-2122Yuvrawazh (Bld) [#/Vol]217 10 3/bI372-354UoivdxreoThe Jewish HospitalRBC Auto (Bld) [#/Vol]Ordered By: Lesli Arevalo on 54-90-3432QEF (Bld) [#/Vol]4.21 10 6/uL4.20-5.40[facility] District Hospitalerum or plasma anion gap determinationOrdered By: Lesli Arevalo on 52-59-4417Kaxmp gap [Moles/Vol]12.2 mmol/LFOhio State Health SystemUrine protein/creatinine ratioOrdered By: Lesli Arevalo on 56-82-4348Ofrsjzq/Creatinine (U) [Ratio]0.35 The [facility] HospitalCNOVon 38-32-5388CJWRWpslhv Visit (RHEUAV) KATHY WASHBURN ([id number]) 1940 F Date Time Provider Department 12/17/24 10:20 AM ZOHAIB GERMAN During your visit today, we recorded the following information about you: Temperature Blood pressure Weight Height 65 degrees 112/71 103.6 kg 1.727 m Zohaib German MD 12/17/2024 10:49 AM Signed [facility] Date of Service: 12/17/2024 Patient: Kathy Washburn Medical Record: [id number] Primary Care Physician: Ayanna Vicente DO Last [...] status and 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 There have not been any new health [...] (IBD) Leukocytosis Mixed hyp (more content not included)...NormalParkview Health Montpelier HospitalCNPNon 25-24-8128LYDXLsdlstaab (NCCAP) KATHY WASHBURN ([id number]) 1940 F Date Time Provider Department 11/17/[facility] During your visit today, we recorded the following information about you: Lori Renner 11/17/2024 11:[address] Zena DREW Received a call from patient caregiver Roxie Bhagat. She stated that patient would like to cancel her upcoming appointment with Dr Paredes on 11/24 due to patient is going to be following with Dr Silva @ [facility] as this is closer to home for patient. Roxie requested to talk to medical records regarding having records sent to Dr Silva transferred call To Heather Todd. Lori Todd [facility], Susan Briggs 11/17/2024 2:36 PM Signed Records faxed to Dr. Silva [phone]. I called Roxie to let her know [...] 07/24/2011 Encounter Status:Closed by LORI RENNER on 11/17/24NoBlanchard Valley Health System Bluffton HospitalAcanthocytes [Presence] in Blood by Light microscopyon 11-01-2024 Acanthocytes LM Ql (Bld)Acanthocytes [Presence] in Blood by Light microscopy The [facility] HospitalAcanthocytes LM Ql (Bld)1+The [facility] HospitalBasophils/100 WBC Manual cnt (Bld)on 31-37-6410Gpbsfnavi/100 WBC (Bld)Basophils/100 leukocytes in Blood by Manual count0.2-2.0The [facility] HospitalBasophils/100 WBC (Bld)2.0 %0.2-2.0[facility] HospitalCholesterol in LDL Calc [Mass/Vol]on 10-42-6354Soaoegqbebx in LDL [Mass/Vol]Cholesterol in LDL [Mass/volume] in Serum or Plasma by calculation The [facility] HospitalComment on above:<100 mg/dl RQQUVWP563-009 mg/dl NEAR OR ABOVE SAZKTNO564-670 mg/dl BORDERLINE GYJF268-002 mg/dl HIGH>190 mg/dl VERY HIGHCholesterol in LDL [Mass/Vol]29.2 mg/dLThe Jewish HospitalComment on above:<100 mg/dl BCLWZYT577-000 mg/dl NEAR OR ABOVE MNXCVQP238-137 mg/dl BORDERLINE UBGH200-326 mg/dl HIGH>190 mg/dl VERY HIGH Cholesterol in VLDL Calc [Mass/Vol]on 20-65-2335Bbljlbyptgg in VLDL [Mass/Vol] Cholesterol in VLDL [Mass/volume] in Serum or Plasma by calculationThe Jewish HospitalCholesterol in VLDL [Mass/Vol]22.8 mg/dLThe Jewish HospitalEosinophils/100 WBC Manual cnt (Bld)on 11-01-2024 Eosinophils/100 WBC (Bld)Eosinophils/100 leukocytes in Blood by Manual count 0.9-7.0The [facility] HospitalEosinophils/100 WBC (Bld)1.0 %0.9-7.0 [facility] HospitalErythrocyte distribution width Auto (RBC) [Ratio]on 16-73-8696Soyzclrpbii distribution width (RBC) [Ratio]14.6 %11.0-15.0 [facility] HospitalEstimated glomerular filtration rate (GFR) non- Americanon 60-04-7873YBC/1.73 sq M.predicted among non-blacks MDRD (S/P/Bld) [Vol rate/Area]Estimated glomerular filtration rate (GFR) non- AmericanLow>=60 mL/min/1.73m 2FOhio State Health SystemGFR/1.73 sq M.predicted among non-blacks MDRD (S/P/Bld) [Vol rate/Area]36 mL/min/{1.73_m2} Low>=60 mL/min/1.73m [address] [place], [place] [address]Globulin Calc (S) [Mass/Vol]on 54-36-6714Fodgmqbv (S) [Mass/Vol]Serum globulin measurement by calculation (mass/volume)The Jewish HospitalGlobulin (S) [Mass/Vol]3.4 g/dLThe Jewish HospitalGlucose mean value [Mass/volume] in Blood Estimated from glycated hemoglobinon 96-11-4021Bzyeeha glucose Estimated from glycated hemoglobin (Bld) [Mass/Vol]Glucose mean value [Mass/volume] in Blood Estimated from glycated hemoglobinFirelands Regional Medical CenterAverage glucose Estimated from glycated hemoglobin (Bld) [Mass/Vol]154 mg/dLThe Jewish HospitalHematocrit Auto (Bld) [Volume fraction]on 79-63-6350Hgepgnmmho (Bld) [Volume fraction]41.5 %36.0-48.0 The [facility] HospitalHemoglobin A1c percentageon 74-56-1212WdX1u (Bld) [Mass fraction]Hemoglobin A1c percentageHigh4.5-6.2FOhio State Health SystemComment on above:ADA RECOMMENDED LIMIT 4.0 - 6.0ADA THERAPEUTIC TARGET < 7.0ACTION SUGGESTED> 7.0HbA1c (Bld) [Mass fraction]7.0 %High4.5-6.2 The [facility] HospitalComment on above:ADA RECOMMENDED LIMIT 4.0 - 6.0ADA THERAPEUTIC TARGET < 7.0ACTION SUGGESTED> 7.0Hemoglobin [Mass/volume] in Bloodon 68-55-2954Wsuwymjjdo (Bld) [Mass/Vol]13.2 g/dL12.0-16.0The [facility] HospitalLaboratory - Chemistry and Chemistry - challengeon 20-64-0871Weppjaw [Mass/Vol]3.3 g/dLLow3.4-5.0[facility] ALP [Catalytic activity/Vol]89 U/W29-562WspwfcvqzThe Jewish HospitalALT [Catalytic activity/Vol]43 U/V79-27JxzeskaklThe Jewish HospitalAST [Catalytic activity/Vol]26 U/J99-68MidvqppwjThe Jewish HospitalBilirubin [Mass/Vol]0.3 mg/dL0.2-1.0[facility] HospitalCalcium [Mass/Vol]9.0 mg/dL8.5-10.1FOhio State Health SystemChloride [Moles/Vol]109 mmol/L Jsxb01-673SwyqzavzvThe Jewish HospitalCholesterol [Mass/Vol]111 mg/dL<=200 The [facility] HospitalCholesterol in HDL [Mass/Vol]59 mg/dL40-60 The [facility] HospitalComment on above:> or =60 mg/dl - LOW CARDIOVASCULAR RISK<40 mg/dl - HIGH CARDIOVASCULAR RISKCO2 [Moles/Vol]29.4 mmol/L21.0-32.0[facility] HospitalCreatinine [Mass/Vol]1.39 mg/dL High0.55-1.02The [facility] HospitalFree T4 [Mass/Vol]1.14 ng/dL 0.76-1.46The [facility] HospitalGFR/1.73 sq M.predicted MDRD (S/P/Bld) [Vol rate/Area]44 mL/min/{1.73_m2}Low>=60 mL/min/1.73m 2FOhio State Health SystemGlucose [Mass/Vol]88 mg/yL56-971OcvhbvzvlThe [facility] Hospital Potassium [Moles/Vol]5.4 mmol/LHigh3.5-5.1FOhio State Health System Protein [Mass/Vol]6.7 g/dL6.4-8.2FCincinnati VA Medical Centerodium [Moles/Vol]143 mmol/Y056-682UmrnneedcThe Jewish HospitalTriglyceride [Mass/Vol]114 mg/dL<=150[facility] Qn0.958 m[IU]/L 0.358-3.740The [facility] HospitalUrea nitrogen [Mass/Vol]44.0 mg/dL High7.0-18.0The [facility] HospitalUrea nitrogen/Creatinine [Mass ratio]31.7 mg/mgThe Jewish HospitalLaboratory - Hematology and Cell countson 74-60-1115Tpae form neutrophils/100 WBC (Bld)1.0 %0-5FOhio State Health SystemLymphocytes/100 WBC (Bld)66.0 %High20.5-60.0[facility] HospitalMonocytes/100 WBC (Bld)7.0 %1.7-12.0[facility] HospitalLeukocytes [#/volume] corrected for nucleated erythrocytes in Blood by Automated counon 82-86-4796EUX corrected for nucl RBC Auto (Bld) [#/Vol]21.6 10 3/uLHigh4.0-11.0[facility] Auto (RBC) [Entitic mass]on 90-89-3572EQQ (RBC) [Entitic mass]30.2 pg26.7-34.0[facility] Auto (RBC) [Mass/Vol]on 04-52-1123WNWO (RBC) [Mass/Vol]31.8 g/dL29.9-35.2FOhio State Health SystemMCV Auto (RBC) [Entitic vol]on 37-81-5241RPV (RBC) [Entitic vol]95.0 fL81.0-99.0[facility] HospitalMicroalbumin [Mass/volume] in Urineon 21-77-0662Qvsuuhv DL <= 20 mg/L (U) [Mass/Vol]Microalbumin [Mass/volume] in Urine<=30.0The [facility] HospitalAlbumin DL <= 20 mg/L (U) [Mass/Vol]1.3 mg/dL<=30.0 [facility] HospitalNo Panel Informationon 22-13-8387Zip[facility]ch Basophils (Manual)0.43 10 3/uLHigh0.00-0.10The [facility] HospitalBand Neutrophils # (Manual)0.2 10 3/uL0.0-0.3FOhio State Health System Eosinophils # (Manual)0.21 10 3/uL0.00-0.70The [facility] HospitalFree Triiodothyronine1.62 pg/mLLow2.18-3.98[facility] Lymphocytes # (Manual)14.25 10 3/uLHigh1.20-3.80The [facility] HospitalMonocytes # (Manual)1.51 10 3/uLHigh0.30-0.80[facility] District Hospitalegmented Neutrophils # (Manual)4.96 10 3/uL1.4-6.5FOhio State Health SystemUrine Random Iurfoplbib21.71 mg/dL20.00-300.00The [facility] HospitalOvalocyte detectionon 86-81-8673Hfdbpqoewm LM Ql (Bld)Ovalocyte detectionThe Jewish HospitalOvalocytes LM Ql (Bld)1+The [facility] HospitalPlatelet mean volume Auto (Bld) [Entitic vol]on 11-73-8342Lcohrnzy mean volume (Bld) [Entitic vol]11.0 fL9.5-13.5FOhio State Health SystemPlatelets Auto (Bld) [#/Vol]on 77-10-4063Dnxwmwjxy (Bld) [#/Vol]239 10 3/oZ528-848RorzdictbThe Jewish HospitalPoikilocytosis [Presence] in Blood by Light microscopyon 68-65-8914Vkrebhhaxaubae LM Ql (Bld) Poikilocytosis [Presence] in Blood by Light microscopyThe Jewish HospitalPoikilocytosis LM Ql (Bld)1+[facility] Jewish HospitalRBC Auto (Bld) [#/Vol]on 91-51-3796HDN (Bld) [#/Vol]4.37 10 6/uL4.20-5.40[facility] Hospitalegmented neutrophils/100 WBC Manual cnt (Bld)on 91-30-2435Hueuelacz neutrophils/100 WBC (Bld)Manual blood segmented neutrophils/100 mafzyuazopTpj64.0-75.0[facility] Hospitalegmented neutrophils/100 WBC (Bld)23.0 %Low43.0-75.0[facility] Serum or plasma albumin/globulin mass ratioon 95-51-8726Uxwvsje/Globulin [Mass ratio]Serum or plasma albumin/globulin mass ratioThe Jewish HospitalAlbumin/Globulin [Mass ratio]1.0 {ratio}[facility] Serum or plasma anion gap determinationon 47-47-6745Eixei gap [Moles/Vol]Serum or plasma anion gap determinationThe Jewish HospitalAnion gap [Moles/Vol]10.0 mmol/LFCincinnati VA Medical Centererum or plasma total cholesterol/high density lipoprotein (HDL) cholesterol mass faustino 11-01-2024 Cholesterol.total/Cholesterol in HDL [Mass ratio]Serum or plasma total cholesterol/high density lipoprotein (HDL) cholesterol mass ratThe Jewish HospitalComment on above:3.3 - 4.4 LOW RISK4.4 - 7.1 AVERAGE RISK7.1 - 11.0 MODERATE RISK>11.0 HIGH RISKCholesterol.total/Cholesterol in HDL [Mass ratio]1.9 {ratio}The Jewish HospitalComment on above:3.3 - 4.4 LOW RISK4.4 - 7.1 AVERAGE RISK7.1 - 11.0 MODERATE RISK>11.0 HIGH RISKUrine microalbumin/creatinine mass ratioon 03-64-6378Sbmwtsc/Creatinine DL <= 20 mg/L (U) [Mass ratio]Urine microalbumin/creatinine mass ratio0.0-29.9The Jewish HospitalComment on above:NO MICROALBUMINURIA 0-29 MG/GCLINICAL MICROALBUMINURIA 30-300 MG/GMACROALBUMINURIA >300 MG/GAlbumin/Creatinine DL <= 20 mg/L (U) [Mass ratio]13.8 mg/g0.0-29.9[facility] Comment on above:NO MICROALBUMINURIA 0-29 MG/GCLINICAL MICROALBUMINURIA 30-300 MG/GMACROALBUMINURIA >300 MG/GReminderson 92-82-2724CncwbcmgqGrlyihfic From: Lori Bledsoe To: EU - Administrative; Sent: 02/24/2024 10:44:10 EDT Show up: 06/25/2024 09:43:00 EST Subject: 6 MO F/U Due Date/Time: 08/26/2024 09:43:00 EST Reminder/Recall PT SEEN ON 02/24/2024 BY JINNY IN [place]. PT WILL NEED A 6 MO F/U. APPT DUE BY 08/26/2024 NO ANSWER Pt is scheduled for 02/14/25.NormalOhio State East HospitalLaboratory - Chemistry and Chemistry - challengeon 98-30-6045Neykqxiji Ql (U)NegativeNEGATIVE The Jewish HospitalGlucose (U) [Mass/Vol]NegativeNEGATIVEThe Jewish HospitalKetones Ql (U)TRACE mg/dLAbnormalNEGATIVEThe Jewish HospitalpH (U)5.5 [pH]5.0-9.0[facility] Specific gravity (U) [Rel density]1.0251.005-1.025The Jewish HospitalUrobilinogen Qn (U)0.2 {Jose'U}/dL0.2-1.0The Jewish HospitalLaboratory - Specimen informationon 74-15-8796Wbxstcbflm (U)CLEARCLEAR The Jewish HospitalColor (U)LT YELLOWYELLOWThe Jewish HospitalLaboratory - Urinalysison 91-31-5581Bulwiraxn esterase Test strip Ql (U)NegativeNEGATIVEThe Jewish HospitalNitrite Ql (U)Negative NEGATIVEThe Jewish HospitalProtein Ql (U)TRACE mg/dLNEG/TRACE The Jewish HospitalNo Panel Informationon 60-68-3845Msyod Occult BloodNegativeNEGATIVEThe Jewish HospitalUrine Cultureon 09-03-2024 Bacteria identified Cx Nom (U)75,000 colonies/ml mixed bacterial skin contaminants 2 Days PERFORMED BY: [facility] [address] [place] [address] PATHOLOGIST GLASSWARE FINISHER IDA ARMIJO M.D.NormalThe [facility] Clayton Physician GroupComment on above: Performed By: #### CUU #### [place] [id number] USAAmbulatory Visit Summaryon 21-37-7278Qcvsuepwnb Visit SummaryAmbulatory Visit Summary KATHY WASHBURN :1940 Visit Date:08/16/2024 Ambulatory [...] SUSAN RANDOLPH PA-C Where: [facility] [address] [place] [address] [place] [address]- You Need to Schedule the Following Appointments Follow Up with SUSAN RANDOLPH PA-C, URL When: In 6 months Where: [address] [place] [address] Medications What How Much When Instructions New estradiol topical (Estrace 0.1 mg/ g Cream) See instructions Refills: 6 apply a pea-sized amount vaginally and around the urethra 3x per week for UTI prevention Pickup at [facility] Unchanged acetaminophen-oxycodone (acetaminophen-oxycodone 325 mg-5 mg [...] By Mouth Every day Contact prescribing physician ifquestions or concerns Unchanged furosemide (Lasix 20 mg [...] Tablets By Mouth Every day Contact prescribing physicianif questions or concerns Unchanged metformin (metformin 1000 [...] Pharmacy Information Discount D (more content not included)...[facility] Urology Office/Clinic Noteon 76-36-7106Vbzqdmv Office/Clinic NoteUrology Office/Clinic Note Chief Complaint Frequent UTI HPI [...] will consider cystoscopy w possible UD. Ordered: 16554 Measure Post Void residual urine and/or bladder capacity by US- non-imaging Complex E&M Add on G2211 E&M of Est. Patient Moderate 30-39 Min 39337 Urnls Dip Stick Auto w/o Microscopy POC 42834 2. Urgency incontinence (N39.41: Urge incontinence) S/p Botox 100u 08/30/21. [place] sxs only improved for a few weeks [...] E&M of Est. Patient Moderate 30-39 Min 98440 Orders: estradiol topical, See Instructions, 42.5 gm, Refill(s) 6, apply a pea-sized amount vaginally and around the urethra 3x per week for UTI prevention, [facility], 178, cm, 08/16/24 9:10:00 EST, Height/Length Dosing, 103, kg, 08/16/24 9:10:00 EST, Weight Do... Follow-up With When Contact Information JAX BECKMAN, SUSAN Miller, URL In 6 months [address] [place] [address] Additional Instructions: Patient Education Antibiotic [...] History of hernia repair. Medications acetaminophen-oxycodone 325 (more content not included)...[facility] Doctors HospitalComment on above:Result Comment: Electronically Signed By: SUSAN RANDOLPH PA-C\Date and Time Signed: 08/16/2509:05 ESTAppearance of Urine Ordered By: Ayanna Vicente on 79-42-9172Jckpqmsgtc (U)Urine appearanceAbnormal ClearThe Jewish HospitalBacteria [Presence] in Urine by Automated Ordered By: Ayanna Vicente on 64-40-0030Qqezkhyy Auto Ql (U)Bacteria [Presence] in Urine by AutomatedNone [facility] Medical CenterBilirubin Test strip Ql (U)Ordered By: Ayanna Vicente on 04-43-9875Qhypiitbx Ql (U) Bilirubin.total [Presence] in Urine by Test stripNegativeThe Jewish HospitalColor Auto (U)Ordered By: Ayanna Vicente on 72-67-0500Jxyhi (U)Color of Urine by AutoAbnormalYellowThe Jewish HospitalDipstick and Microscopicon 52-06-9780Ainbjifnml (U)CloudyCritically abnormalClearThe [facility] Physician GroupComment on above:Order Comment: Name Collection Type:: Clean-Voided MidstreamPerformed By: #### ADDONUAPLUS, CUU #### [facility] [address] [place] [id number] USABacteria,UrineNone SeenNormalNone SeenAscension Sacred Heart Bay Physician GroupComment on above:Order Comment: Name Collection Type:: Clean- Voided MidstreamPerformed By: #### ADDONUAPLUS, CUU #### [facility] [address] [place] [address] USABilirubin,UrineNegativeNormalNegativeAscension Sacred Heart Bay Physician GroupComment on above:Order Comment: Name Collection Type:: Clean- Voided MidstreamPerformed By: #### ADDONUAPLUS, CUU #### [place] [address] USAColor (U)Dark-YellowCritically abnormalYellowThe [facility] Physician GroupComment on above:Order Comment: Name Collection Type:: Clean- Voided MidstreamPerformed By: #### ADDONUAPLUS, CUU #### [place] [address] USAGlucose Ql (U)NormalNormalNormalThe [facility] Physician GroupComment on above:Order Comment: Name Collection Type:: Clean-Voided MidstreamPerformed By: #### ADDONUAPLUS, CUU #### [place] [address] USAHyaline Casts,Urine0 [LPF]Normal0-8The [facility] Physician GroupComment on above:Order Comment: Name Collection Type:: Clean-Voided MidstreamPerformed By: #### ADDONUAPLUS, CUU #### [place] [address] USAKetones Ql (U)NegativeNormalNegativeAscension Sacred Heart Bay Physician GroupComment on above:Order Comment: Name Collection Type:: Clean- Voided MidstreamPerformed By: #### ADDONUAPLUS, CUU #### [place] [address] USALeukocyte esterase Test strip Ql (U)4+HighNegativeAscension Sacred Heart Bay Physician GroupComment on above:Order Comment: Name Collection Type:: Clean-Voided MidstreamPerformed By: #### ADDONUAPLUS, CUU #### [place] [address] USAMucus,UrineRareNormalThe [facility] Physician GroupComment on above:Order Comment: Name Collection Type:: Clean-Voided MidstreamResult Comment: PERFORMED BY: [place] [address] PATHOLOGIST GLASSWARE FINISHER IDA ARMIJO M.D.Performed By: #### ADDONUAPLUS, CUU #### [place] [address] USANitrite,UrinePositiveHighNegativeThe [facility] Physician GroupComment on above:Order Comment: Name Collection Type:: Clean-Voided MidstreamPerformed By: #### ADDONUAPLUS, CUU #### [place] [address] USAOccult Blood,UrineNegativeNormalNegativeThe [facility] Physician GroupComment on above:Order Comment: Name Collection Type:: Clean- Voided MidstreamResult Comment: PERFORMED BY: [place] [address] PATHOLOGIST GLASSWARE FINISHER IDA ARMIJO M.D.Performed By: #### ADDONUAPLUS, CUU #### [place] [address] USApH (U)6.0 [pH]Normal5.0-9.0The [facility] Comment on above:Order Comment: Name Collection Type:: Clean-Voided Midstream Performed By: #### ADDONUAPLUS, CUU #### [place] [address] USAProtein (U) [Mass/Vol]30 mg/dLHighNegativeThe [facility] Physician GroupComment on above:Order Comment: Name Collection Type:: Clean- Voided MidstreamPerformed By: #### ADDONUAPLUS, CUU #### [place] [address] USARBC,Urine1 [HPF]Normal0-4The [facility] Comment on above:Order Comment: Name Collection Type:: Clean-Voided Midstream Performed By: #### ADDONUAPLUS, CUU #### [place] [address] USASpecificy [place],Urine1.394Bqfoyd2.001-1.030The [facility] Physician GroupComment on above:Order Comment: Name Collection Type:: Clean- Voided MidstreamPerformed By: #### ADDONUAPLUS, CUU #### [place] [address] USASquamous Epithelial Cell,Urine1 [HPF]Normal0-2The [facility]ung[facility] Hospitallands Physician GroupComment on above:Order Comment: Name Collection Type:: Clean-Voided MidstreamPerformed By: #### ADDONUAPLUS, CUU #### [facility] [address] [place] [id number] USAUrobilinogen,UrineNormalNormalNormalThe [facility] Physician GroupComment on above:Order Comment: Name Collection Type:: Clean- Voided MidstreamPerformed By: #### ADDONUAPLUS, CUU #### [facility] [address] [place] [id number] USAWBC CLUMP, UrineManyHighNone SeenAscension Sacred Heart Bay Physician GroupComment on above:Order Comment: Name Collection Type:: Clean-Voided MidstreamPerformed By: #### ADDONUAPLUS, CUU #### [facility] [address] [place] [address] USAWBC,UrineInnumerableHigh0-4The [facility] Comment on above:Order Comment: Name Collection Type:: Clean-Voided Midstream Performed By: #### ADDONUAPLUS, CUU #### [facility] [address] [place], [place] [id number] USAEpithelial cells.squamous [#/area] in Urine sediment by Automated countOrdered By: Ayanna Vicente on 07-47-6742Wpoidovbbh cells.squamous Auto (Urine sed) [#/Area]Epithelial cells.squamous [#/area] in Urine sediment by Automated count0-2FOhio State Health SystemErythrocytes [#/area] in Urine sediment by Automated countOrdered By: Ayanna Vicente on 88-60-6334MAZ Auto (Urine sed) [#/Area]Erythrocytes [#/area] in Urine sediment by Automated count 0-4FOhio State Health SystemGlucose [Mass/volume] in Urine by Test strip Ordered By: Ayanna Vicente on 62-80-9346Zbwowsd Test strip (U) [Mass/Vol]Glucose [Mass/volume] in Urine by Test stripNormalThe Jewish Hospital Hemoglobin Test strip Ql (U)Ordered By: Ayanna Vicente on 09-70-5295Qubigiwkas Ql (U)Hemoglobin [Presence] in Urine by Test stripNegativeThe Jewish HospitalHyaline casts [#/area] in Urine sediment by Automated countOrdered By: Ayanna Vicente on 33-45-2409Xologmz casts Auto (Urine sed) [#/Area]Hyaline casts [#/area] in Urine sediment by Automated count0-8The Jewish HospitalKetones Test strip Ql (U)Ordered By: Ayanna Vicente on 36-90-2637Trxidhe Ql (U)Ketones [Presence] in Urine by Test stripNegProMedica Defiance Regional HospitalLeukocyte clumps [Presence] in Urine by AutomatedOrdered By: Ayanna Vicente on 89-43-8762Mgkpsugrt clumps Auto Ql (U)Leukocyte clumps [Presence] in Urine by AutomatedHighNone SeenThe Jewish HospitalLeukocyte esterase [Presence] in Urine by Test stripOrdered By: Ayanna Vicente on 20-41-3515Gscapnfjb esterase Test strip Ql (U)Leukocyte esterase [Presence] in Urine by Test strip HighNegProMedica Defiance Regional HospitalLeukocytes [#/area] in Urine sediment by Automated countOrdered By: Ayanna Vicente on 77-15-1452UIZ Auto (Urine sed) [#/Area]Leukocytes [#/area] in Urine sediment by Automated countHigh0-4 The Jewish HospitalMucus [Presence] in Urine by AutomatedOrdered By: Ayanna Vicente on 75-26-1546Uxmfy Auto Ql (U)Mucus [Presence] in Urine by AutomatedThe Jewish HospitalNitrite Test strip Ql (U)Ordered By: Ayanna Vicente on 93-16-5127Bfsxvvi Ql (U)Nitrite [Presence] in Urine by Test stripTrinity Health System Twin City Medical CenterProtein Test strip (U) [Mass/Vol]Ordered By: Ayanna Vicente on 69-05-4837Gfkwloq (U) [Mass/Vol]Protein [Mass/volume] in Urine by Test stripMarion Hospitalpecific gravity Test strip (U) [Rel density]Ordered By: Ayanna Vicente on 43-95-5504Awfoazgl gravity (U) [Rel density]Specific gravity of Urine by Test strip1.001-1.030The Jewish HospitalUrine Cultureon 08-10-2024 Bacteria identified Cx Nom (U)ORGANISM: Escherichia coli (O:ESCCOL) [place] Count >100,000 Aerobic CORNELIA Charge (NMIC56) SUSCEPTIBILITY [...] RESISTANT TO ALL B-LACTAM DRUGS. PERFORMED BY: [facility] [address] [place] [address] PATHOLOGIST GLASSWARE FINISHER IDA ARMIJO M.D.[facility] Physician GroupComment on above: Performed By: #### PERNELL MALLORY #### [facility] [address] StreetUrine cultureOrdered By: Ayanna Vicente on 08-10-2024 Bacteria identified Cx Nom (U)Escherichia coliAbnormalThe Jewish HospitalUrobilinogen Test strip (U) [Mass/Vol]Ordered By: Ayanna Vicente on 33-84-8406Dbeufemfxmwr (U) [Mass/Vol]Urobilinogen [Mass/volume] in Urine by Test stripNormalThe Jewish HospitalpH Test strip (U)Ordered By: Ayanna Vicente on 16-31-0793cQ (U)pH of Urine by Test strip5.0-9.0The Jewish HospitalALL THYROID STIM HORMONEon 39-30-3318LSH Qn2.632 m[IU]/LNOMS HealthcareCLINISYNCNOMS HealthcareEstimated glomerular filtration rate (GFR) non- Americanon 73-13-1350KPB/1.73 sq M.predicted among non-blacks MDRD (S/P/Bld) [Vol rate/Area]Estimated glomerular filtration rate (GFR) non- AmericanLow>=60 mL/min/1.73m 2FOhio State Health SystemLaboratory - Chemistry and Chemistry - challengeon 05-39-4446Unyamxx [Mass/Vol]9.2 mg/dL 8.5-10.1FOhio State Health SystemChloride [Moles/Vol]105 mmol/L98-107 The Jewish HospitalCO2 [Moles/Vol]30.0 mmol/L21.0-32.0The Jewish HospitalCobalamin (Vitamin B12) [Mass/Vol]721 pg/pB581-7003 The Jewish HospitalComment on above:Performed at: - [facility] [address] [id number] Director: Narinder Elam PhD, Phone: [phone] [Mass/Vol]1.36 mg/dLHigh0.55-1.02The Jewish HospitalGFR/1.73 sq M.predicted MDRD (S/P/Bld) [Vol rate/Area]45 mL/min/{1.73_m2}Low>=60 mL/min/1.73m 2FOhio State Health SystemGlucose [Mass/Vol]125 mg/tGYbvu76-234YvlljwnvoThe Jewish HospitalPotassium [Moles/Vol]4.8 mmol/L3.5-5.1FCincinnati VA Medical Centerodium [Moles/Vol] 141 mmol/G726-933BafncvqvtThe Jewish HospitalTSH Qn2.632 m[IU]/L0.358-3.740 The Jewish HospitalUrea nitrogen [Mass/Vol]28.0 mg/dLHigh7.0-18.0 The Jewish HospitalUrea nitrogen/Creatinine [Mass ratio]20.6 mg/mg Highland District Hospitalerum or plasma anion gap determinationon 26-33-7238Nbljg gap [Moles/Vol]Serum or plasma anion gap determinationThe Jewish HospitalBasophils/100 WBC Manual cnt (Bld)on 06-15-2024 Basophils/100 WBC (Bld)Basophils/100 leukocytes in Blood by Manual count0.2-2.0 The Jewish HospitalEosinophils/100 WBC Manual cnt (Bld)on 47-22-6866Iumxlbvtmav/100 WBC (Bld)Eosinophils/100 leukocytes in Blood by Manual count0.9-7.0The Jewish HospitalErythrocyte distribution width Auto (RBC) [Ratio]on 96-96-4759Zqxcgmjycak distribution width (RBC) [Ratio] Erythrocyte distribution width [Ratio] by Automated count11.0-15.0The Jewish HospitalEstimated glomerular filtration rate (GFR) non- Americanon 94-61-5332OAP/1.73 sq M.predicted among non-blacks MDRD (S/P/Bld) [Vol rate/Area]Estimated glomerular filtration rate (GFR) non- Low>=60 mL/min/1.73m 2FOhio State Health SystemGlobulin Calc (S) [Mass/Vol]on 66-83-4498Ggkintem (S) [Mass/Vol]Serum globulin measurement by calculation (mass/volume)The Jewish HospitalHematocrit Auto (Bld) [Volume fraction]on 89-61-5254Jwkofmvkka (Bld) [Volume fraction]Hematocrit [Volume Fraction] of Blood by Automated count36.0-48.0The Jewish HospitalHemoglobin [Mass/volume] in Bloodon 53-78-9325Jnkhiqxgxy (Bld) [Mass/Vol] Hemoglobin [Mass/volume] in Blood12.0-16.0The Jewish HospitalLon 06-15-2024L Specimen: [id number] Received: 06/16/24 Status: JEFFERY Lemon Num: [id number] Spec Type: Impression Subm Dr: Tri Ag DO Tissues: PATHPER Procedures: PATHREVIEW Age/ Patient Sex Location Account Attending Physician Kathy Washburn 83/F [facility] [id number] Tri Ag DO SPEC NUM: [id number] RECD: 06/16/24 STATUS: JEFFERY LEMON NUM: [id number] JESSICA: 06/15/24- SUBM DR: Tri Ag DO ENTERED: 06/16/[address]: Angi Restrepo SPEC TYPE: Impression DEPT: ZOE ROPER BY: [id number] RECV BY: [id number] ORDERED: PATHREVIEW ORDERED: PATHREVIEW Pathologist Review Peripheral blood smear evaluation: - Severe lymphocytosis with atypical lymphocytes and smudges consistent with CLL, flow cytometry if clinically indicated. - Red blood cell and Platelet: Unremarkable. CPT: 75711 Jose Angel Kc MD 06/16/24 Specimen: [id number] Received: 06/16/24-1438 Status: JEFFERY Lemon Num: [id number] Spec Type: Impression Subm Dr: Tri Ag DO Tissues: PATHBILL Procedures: PATHREVIEW Patient: Kathy Washburn [id number] (Continued) Signed (signature on file) Jose Angel Kc MD 06/16/24 1635Normal [facility] Physician GroupLaboratory - Chemistry and Chemistry - challengeon 21-59-5563Ayojmyd [Mass/Vol]3.5 g/dL3.4-5.0The Jewish HospitalALP [Catalytic activity/Vol]103 U/Y54-198RnzpxpongThe Jewish HospitalALT [Catalytic activity/Vol]34 U/L55-30GbywvmevqThe Jewish HospitalAST [Catalytic activity/Vol]25 U/N04-49RvylyvexuThe Jewish HospitalBilirubin [Mass/Vol]0.3 mg/dL0.2-1.0The Jewish HospitalCalcium [Mass/Vol]9.1 mg/dL8.5-10.1FOhio State Health SystemChloride [Moles/Vol]108 mmol/L Xcpg90-375BcfcmyrxeThe Jewish HospitalCO2 [Moles/Vol]28.4 mmol/L21.0-32.0 The Jewish HospitalCreatinine [Mass/Vol]1.42 mg/dLHigh0.55-1.02 The Jewish HospitalGFR/1.73 sq M.predicted MDRD (S/P/Bld) [Vol rate/Area]43 mL/min/{1.73_m2}Low>=60 mL/min/1.73m 2FOhio State Health SystemGlucose [Mass/Vol]140 mg/eSXced62-747IooyefxnpThe Jewish Hospital Potassium [Moles/Vol]4.3 mmol/L3.5-5.1FOhio State Health SystemProtein [Mass/Vol]6.9 g/dL6.4-8.2FCincinnati VA Medical Centerodium [Moles/Vol]143 mmol/Y643-915AxoslvlrcThe Jewish HospitalUrea nitrogen [Mass/Vol]31.0 mg/dL High7.0-18.0The Jewish HospitalUrea nitrogen/Creatinine [Mass ratio]21.8 mg/mgThe Jewish HospitalLaboratory - Hematology and Cell countson 00-33-5246Hcxcxtvnrzv/100 WBC (Bld)54.0 %20.5-60.0The Jewish HospitalMonocytes/100 WBC (Bld)0.0 %Low1.7-12.0The Jewish HospitalLeukocytes [#/volume] corrected for nucleated erythrocytes in Blood by Automated counon 75-41-1350JSN corrected for nucl RBC Auto (Bld) [#/Vol]Leukocytes [#/volume] corrected for nucleated erythrocytes in Blood by Automated counHigh4.0-11.0The Jewish HospitalMCH Auto (RBC) [Entitic mass]on 38-04-2515CWR (RBC) [Entitic mass]MCH [Entitic mass] by Automated count26.7-34.0[facility] CenterHC Auto (RBC) [Mass/Vol]on 83-87-4346RRMM (RBC) [Mass/Vol]MCHC [Mass/volume] by Automated count29.9-35.2FOhio State Health SystemMCV Auto (RBC) [Entitic vol]on 17-26-8933VIP (RBC) [Entitic vol]MCV [Entitic volume] by Automated count 81.0-99.0The Jewish HospitalNo Panel Informationon 06-15-2024 Absolute Basophils (Manual)0.22 10 3/uLHigh0.00-0.10The Jewish HospitalAdd Manual DifferentialSee commentThe Jewish HospitalComment on above:SEE SCANNED REPORTEosinophils # (Manual)0.44 10 3/uL0.00-0.70The Jewish HospitalLymphocytes # (Manual)11.88 10 3/uLHigh1.20-3.80The Jewish HospitalMonocytes # (Manual)0.00 10 3/uLLow0.30-0.80The Jewish HospitalReactive Lymphocytes1.76[facility] Reactive Lymphocytes8.0 %Highland District Hospitalegmented Neutrophils # (Manual)7.70 10 3/uLHigh1.4-6.5FOhio State Health SystemPlatelet mean volume Auto (Bld) [Entitic vol]on 51-68-2337Gtuarapk mean volume (Bld) [Entitic vol]Platelet mean volume [Entitic volume] in Blood by Automated count9.5-13.5 The Jewish HospitalPlatelets Auto (Bld) [#/Vol]on 06-15-2024 Platelets (Bld) [#/Vol]Platelets [#/volume] in Blood by Automated baeav554-316 The Jewish HospitalRBC Auto (Bld) [#/Vol]on 04-72-0641THH (Bld) [#/Vol]Erythrocytes [#/volume] in Blood by Automated count4.20-5.40Highland District Hospitalegmented neutrophils/100 WBC Manual cnt (Bld)on 25-72-2874Icagxkyth neutrophils/100 WBC (Bld)Manual blood segmented neutrophils/100 kfugzvtriwKjw25.0-75.0[facility] District Hospitalerum or plasma albumin/globulin mass ratioon 97-97-7417Wmjdktq/Globulin [Mass ratio] Serum or plasma albumin/globulin mass ratioThe Jewish Hospital Serum or plasma anion gap determinationon 33-15-4482Jdoch gap [Moles/Vol]Serum or plasma anion gap determinationHighland District Hospitalmudge cell detectionon 12-56-5103Ryvpte cells LM Ql (Bld)Smudge cell detectionThe Jewish HospitalBasophils Auto (Bld) [#/Vol]on 28-21-5512Fqtqcxdjn (Bld) [#/Vol]Automated basophil count<0.11[facility] Basophils/100 WBC Auto (Bld)on 50-27-4282Taamkrorn/100 WBC (Bld)Automated basophil %The Jewish HospitalBlood manual differential comment interpretation narrativeon 27-72-1124Ydzbih differential comment Himanshu (Bld) [Interp]Blood manual differential comment interpretation narrativeThe Jewish HospitalCB W Auto Differential panel (Bld)on 45-90-7079Mhnkoyetg (Bld) [#/Vol]0.00 10*3/uLNormal<0.11CDayton Children's HospitalCommunson medical center on above: Order Comment: Specimen Type: BLOOD SPECIMEN Ordering Facility: [facility] Address: [address] [place], [place] [address]Performed By: #### [id number] #### [facility] CLIA [id number] [address] [place] [address] [facility] CLIA [id number] [address] [place], [place] [id number] [place] OF AMERICABasophils/100 WBC (Bld)0.0 % NormalClinton Memorial Hospital on above:Order Comment: Specimen Type: BLOOD SPECIMEN Ordering Facility: [facility] Address: [address] [place], [place] [address]Performed By: #### 83201-1 #### [facility] CLIA [id number] [address] [place], [place] [address] [facility] CLIA [id number] [address] [place] [address] [place] OF AMERICADifferential cell count method Nom (Bld)ManualNormalCUniversity Hospitals Health System on above:Order Comment: Specimen Type: BLOOD SPECIMEN Ordering Facility: [facility] Address: [address] [place], [place] [address]Performed By: #### 65668-9 #### [facility] CLIA [id number] [address] [place] [address] LAB CLIA [id number] [address] [place], [place] [id number] [place] OF AMERICAEosinophils (Bld) [#/Vol] 0.19 10*3/uLNormal<0.46[facility] on above:Order Comment: Specimen Type: BLOOD SPECIMEN Ordering Facility: [facility] Address: [address] [place], [place] [address]Performed By: #### [id number] #### [facility] CLIA [id number] [address] [place] [address] LAB CLIA [id number] [address] [place], [place] [id number] [place] AMERICAEosinophils/100 WBC (Bld)1.0 %NormalClinton Memorial Hospital on above:Order Comment: Specimen Type: BLOOD SPECIMEN Ordering Facility: [facility] Address: [address] [place], [place] [address]Performed By: #### 11105-0 #### [facility] CLIA [id number] [address] [place] [address] LAB CLIA [id number] [address] [place] [address] [place] OF AMERICAErythrocyte distribution width (RBC) [Ratio]14.2 %Paxhpu22.5-15.0[facility] on above:Order Comment: Specimen Type: BLOOD SPECIMEN Ordering Facility: [facility] Address: [address] [place], [place] [address]Performed By: #### 82102-5 #### [facility] CLIA [id number] [address] [place] [address] LAB CLIA [id number] [address] [place] [address] [place] OF AMERICAHematocrit (Bld) [Volume fraction]38.4 %Sebmcc93.0-46.0[facility] on above:Order Comment: Specimen Type: BLOOD SPECIMEN Ordering Facility: [facility] Address: [address] [place], [place] [address]Performed By: #### 54940-6 #### [facility] CLIA [id number] [address] [place] [address] LAB CLIA [id number] [address] [place] [address] [place] OF AMERICAHemoglobin (Bld) [Mass/Vol] 12.7 g/sBFkopbw34.5-15.5CUniversity Hospitals Health System on above:Order Comment: Specimen Type: BLOOD SPECIMEN Ordering Facility: [facility] Address: [address] [place], [place] [address]Performed By: #### 01925-8 #### [facility] CLIA [id number] [address] [place] [address] [facility] CLIA [id number] [address] [place] [address] [place] OF AMERICALymphocytes (Bld) [#/Vol] 14.61 10*3/uLHigh1.00-4.00[facility] on above:Order Comment: Specimen Type: BLOOD SPECIMEN Ordering Facility: [facility] Address: [address] [place], [place] [address]Performed By: #### 82724-9 #### [facility] CLIA [id number] [address] [place] [address] LAB CLIA [id number] [address] [place], [place] [address] [place] OF AMERICALymphocytes/100 WBC (Bld) 76.0 %NormalClinton Memorial Hospital on above:Order Comment: Specimen Type: BLOOD SPECIMEN Ordering Facility: [facility] Address: [address] [place], [place] [address]Performed By: #### 05413-0 #### [facility] CLIA [id number] [address] [place] [address] LAB CLIA [id number] [address] [place], [place] [address] [place] OF AMERICAMCH (RBC) [Entitic mass]30.0 djMdibpn53.0-34.0[facility] on above:Order Comment: Specimen Type: BLOOD SPECIMEN Ordering Facility: [facility] Address: [address] [place], [place] [address]Performed By: #### 76523-4 #### [facility] CLIA [id number] [address] [place] [address] LAB CLIA [id number] [address] [place], [place] [address] [place] OF AMERICAMCHC (RBC) [Mass/Vol]33.1 g/gJAiogtf02.5-36.0[facility] on above:Order Comment: Specimen Type: BLOOD SPECIMEN Ordering Facility: [facility] Address: [address] [place], [place] [address]Performed By: #### 02712-3 #### [facility] CLIA [id number] [address] [place] [address] LAB CLIA [id number] [address] [place] [address] [place] AMERICAMCV (RBC) [Entitic vol]90.8 uZMjyazj88.0-100.0[facility] on above:Order Comment: Specimen Type: BLOOD SPECIMEN Ordering Facility: [facility] Address: [address] [place], [place] [address]Performed By: #### 82297-5 #### [facility] CLIA [id number] [address] [place] [address] LAB CLIA [id number] [address] [place] [address] [place] AMERICAMonocytes (Bld) [#/Vol]0.19 10*3/uLNormal<0.87[facility] on above:Order Comment: Specimen Type: BLOOD SPECIMEN Ordering Facility: [facility] Address: [address] [place], [place] [address]Performed By: #### 70184-8 #### [facility] CLIA [id number] [address] [place] [address] LAB CLIA [id number] [address] [place] [address] [place] AMERICAMonocytes/100 WBC (Bld)1.0 % NormalClinton Memorial Hospital on above:Order Comment: Specimen Type: BLOOD SPECIMEN Ordering Facility: [facility] Address: [address] [place], [place] [address]Performed By: #### 84378-9 #### [facility] CLIA [id number] [address] [place] [address] LAB CLIA [id number] [address] [place] [address] [place] AMERICANeutrophils (Bld) [#/Vol] 4.23 10*3/uLNormal1.45-7.50[facility] on above:Order Comment: Specimen Type: BLOOD SPECIMEN Ordering Facility: [facility] Address: [address] [place], [place] [address]Performed By: #### 79888-1 #### [facility] CLIA [id number] [address] [place] [address] LAB CLIA [id number] [address] [place] [address] [place] AMERICANeutrophils/100 WBC (Bld) 22.0 %NormalClinton Memorial Hospital on above:Order Comment: Specimen Type: BLOOD SPECIMEN Ordering Facility: [facility] Address: [address] [place], [place] [address]Performed By: #### 90745-5 #### [facility] CLIA [id number] [address] [place] [address] LAB CLIA [id number] [address] [place] [address] [place] AMERICANucleated RBC (Bld) [#/Vol] 10*3/uLNormal<0.01[facility] on above:Order Comment: Specimen Type: BLOOD SPECIMEN Ordering Facility: [facility] Address: [address] [place], [place] [address]Performed By: #### 80636-1 #### [facility] CLIA [id number] [address] [place] [address] LAB CLIA [id number] [address] [place] [address] [place] AMERICANucleated RBC/100 WBC (Bld) [Ratio]0.0 /100 WBCNormalCUniversity Hospitals Health System on above:Order Comment: Specimen Type: BLOOD SPECIMEN Ordering Facility: [facility] Address: [address] [place], [place] [address]Performed By: #### 28981-6 #### [facility] CLIA [id number] [address] [place] [address] LAB CLIA [id number] [address] [place] [address] [place] AMERICAOvalocytes LM Ql (Bld)Few NormalClinton Memorial Hospital on above:Order Comment: Specimen Type: BLOOD SPECIMEN Ordering Facility: [facility] Address: [address] [place], [place] [address]Performed By: #### 61800-8 #### [facility] CLIA [id number] [address] [place] [address] LAB CLIA [id number] [address] [place] [address] [place] AMERICAPlatelet mean volume (Bld) [Entitic vol]10.4 fLNormal9.0-12.7CUniversity Hospitals Health System on above: Order Comment: Specimen Type: BLOOD SPECIMEN Ordering Facility: [facility] Address: [address] [place], [place] [address]Performed By: #### 69060-5 #### [facility] CLIA [id number] [address] [place] [address] LAB CLIA [id number] [address] [place] [address] [place] AMERICAPlatelets (Bld) [#/Vol]244 10*3/rEGsvxgs441-859XzyldgjyrClinton Memorial Hospital on above:Order Comment: Specimen Type: BLOOD SPECIMEN Ordering Facility: [facility] Address: [address] [place], [place] [address]Performed By: #### 50060-3 #### [facility] CLIA [id number] [address] [place] [address] LAB CLIA [id number] [address] [place] [address] [place] AMERICAPlatelets Estimate (Bld) [#/Vol]AdequateNormalCUniversity Hospitals Health System on above:Order Comment: Specimen Type: BLOOD SPECIMEN Ordering Facility: [facility] Address: [address] [place], [place] [address]Performed By: #### 22331-5 #### [facility] CLIA [id number] [address] [place] [address] LAB CLIA [id number] [address] [place] [address] [place] AMERICAPolychromasia LM Ql (Bld) SlightNormalCUniversity Hospitals Health System on above:Order Comment: Specimen Type: BLOOD SPECIMEN Ordering Facility: [facility] Address: [address] [place], [place] [address]Performed By: #### 40512-9 #### [facility] CLIA [id number] [address] [place] [address] LAB CLIA [id number] [address] [place] [address] [place] AMERICARBC (Bld) [#/Vol]4.23 10*6/uLNormal3.90-5.20[facility] on above:Order Comment: Specimen Type: BLOOD SPECIMEN Ordering Facility: [facility] Address: [address] [place], [place] [address]Performed By: #### 78164-1 #### [facility] CLIA [id number] [address] [place] [address] LAB CLIA [id number] [address] [place] [address] [place] AMERICARED CELL MORPHReviewed: see results of individual morphologiesNoCleveland Clinic [facility] on above:Order Comment: Specimen Type: BLOOD SPECIMEN Ordering Facility: [facility] Address: [address] [place], [place] [address]Performed By: #### 65335-0 #### [facility]ACEYGRACIELA [facility] CLIA [id number] [address] [place] [address] LAB CLIA [id number] [address] [place] [address] [place] MERCY HOSPITALWBC (Bld) [#/Vol]19.22 10*3/uLHigh3.70-11.00[facility]pelier HospitalComment on above:Order Comment: Specimen Type: BLOOD SPECIMEN Ordering Facility: [facility] Address: [address] [place], [place] [address]Result Comment: No clot detected.Results checked and verified.Performed By: #### 74367-8 #### [facility] CLIA [id number] [address] [place] [address] LAB CLIA [id number] [address] [place], [place] [address]CNOVSPon 13-93-2277GTSOGA Visit (SP) Office ([place]MASA) MARKUSKATHY FERRER ([id number]) 1940 F Date Time Provider Department 05/26/24 2:00 PM CHAD FREITAS During your visit today, we recorded the following information about you: Temperature Pulse Respiration Blood pressure 97 degrees 70/minute 16/minute 92/51 Weight Height 105.3 kg 1.727 m Chad Freitas MD 05/26/2024 2:41 PM Signed PATIENT NAME: Kathy Washburn CLINIC NO.: [id number] ATTENDING PHYSICIAN: Chad Freitas MD DATE OF [...] Did mammogram last week at [facility]. - Scheduled to see [employer] PAST MEDICAL HISTORY Diagnosis Date Depression Diabetes [...] Ref Range Status 05/26 (more content not included)...NormalParkview Health metabolic 2000 panelOrdered By: Malka Galvez on 18-87-3563Tkktbdh [Mass/Vol]4.1 g/dL3.9 - 4.9 g/dLVan Alstyne ClinicALP [Catalytic activity/Vol]107 U/L34 - 123 U/LCleveland ClinicALT [Catalytic activity/Vol]21 U/L7 - 38 U/L [facility] ClinicAnion gap [Moles/Vol]11 mmol/L8 - 15 mmol/LCleveland ClinicAST [Catalytic activity/Vol]23 U/L13 - 35 U/LCleveland ClinicBilirubin [Mass/Vol]0.2 mg/dL0.2 - 1.3 mg/dLVan Alstyne ClinicCalcium [Mass/Vol]9.3 mg/dL8.5 - 10.2 mg/dL [facility] ClinicChloride [Moles/Vol]105 mmol/L98 - 107 mmol/LCleveland ClinicCO2 [Moles/Vol]26 mmol/L22 - 30 mmol/LCleveland ClinicCreatinine [Mass/Vol]1.20 mg/dLHigh0.58 - 0.96 mg/dLVan Alstyne ClinicGFR/1.73 sq M.predicted among non- blacks MDRD (S/P/Bld) [Vol rate/Area]46 mL/min/{1.73_m2}Low- PINFCleveland ClinicComment on above:Estimated Glomerular Filtration Rate (eGFR) is calculated using the 2020 CKD-EPI creatinine equation. This equation utilizes serum creatinine, sex, and age as parameters. The creatinine assay has traceable calibration to isotope dilution-mass spectrometry. Refer to KDIGO guidelines for clinical interpretation. In patients with unstable renal function, e.g. those with acute kidney injury, the eGFRmay not accurately reflect actual GFR.Glucose [Mass/Vol]231 mg/iFCati64 - 99 mg/dLRegency Hospital ToledoComment on above:The [place] Diabetes Association (ADA) provides guidance for cutoff values for fasting glucose andrandom glucose. The ADA defines fasting as no [...] Standards of Medical Care in Diabetes 2016, [place] Diabetes Association. Diabetes Care. 2016.39(Suppl 1). Interpretation and review of laboratory resultsAbnormalCleveland ClinicPotassium [Moles/Vol]5.3 mmol/LHigh3.7 - 5.1 mmol/LCleveland ClinicProtein [Mass/Vol]6.9 g/dL6.3 - 8.0 g/dLSelect Medical Specialty Hospital - Columbusodium [Moles/Vol]142 mmol/L136 - 144 mmol/L [facility] Hospital ToledoUrea nitrogen [Mass/Vol]36 mg/dLHigh7 - 21 mg/dLCleveland ClinicComprehensive metabolic 2000 panelon 05-55-6881Rfbusfa [Mass/Vol]4.1 g/dLNormal3.9-4.9CUniversity Hospitals Health System on above:Order Comment: Specimen Type: BLOOD SPECIMEN Ordering Facility: [facility] Address: [address] [place], [place] [address]Performed By: #### 2532-0, 19371-6 #### [facility] CLIA [id number] [address] [place] [address]QZN [Catalytic activity/Vol]107 U/BCmwsaq98-921YguxmnmgfClinton Memorial Hospital on above:Order Comment: Specimen Type: BLOOD SPECIMEN Ordering Facility: [facility] Address: [address] [place], [place] [address]Performed By: #### 2532-0, 38165-5 #### [facility] CLIA [id number] [address] [place], [place] [address]GOS [Catalytic activity/Vol]21 U/LNormal7-38[facility] on above:Order Comment: Specimen Type: BLOOD SPECIMEN Ordering Facility: [facility] Address: [address] [place], [place] [address]Performed By: #### 2532-0, 02021-9 #### [facility] CLIA [id number] [address] [place], [place] [address]Ansoa gap [Moles/Vol]11 mmol/LNormal8-15[facility] on above:Order Comment: Specimen Type: BLOOD SPECIMEN Ordering Facility: [facility] Address: [address] [place], [place] [address]Performed By: #### 2532-0, 81351-6 #### [facility] CLIA [id number] [address] [place] [address]JRJ [Catalytic activity/Vol]23 U/UNobsbz13-27VowkttlwbClinton Memorial Hospital on above:Order Comment: Specimen Type: BLOOD SPECIMEN Ordering Facility: [facility] Address: [address] [place], [place] [address]Performed By: #### 2532-0, 93256-5 #### [facility] CLIA [id number] [address] [place] [address]Fwggsiaej [Mass/Vol]0.2 mg/dLNormal0.2-1.3CUniversity Hospitals Health System on above:Order Comment: Specimen Type: BLOOD SPECIMEN Ordering Facility: [facility] Address: [address] [place], [place] [address]Performed By: #### 2532-0, 38770-7 #### [facility] CLIA [id number] [address] [place] [address]Uxazlzn [Mass/Vol]9.3 mg/dLNormal8.5-10.2CUniversity Hospitals Health System on above:Order Comment: Specimen Type: BLOOD SPECIMEN Ordering Facility: [facility] Address: [address] [place], [place] [address]Performed By: #### 2532-0, 30195-9 #### [facility] CLIA [id number] [address] [place], [place] [address]Atdakskh [Moles/Vol]105 mmol/GQnabpz75-370EkvqodqvwClinton Memorial Hospital on above:Order Comment: Specimen Type: BLOOD SPECIMEN Ordering Facility: [facility] Address: [address] [place], [place] [address]Performed By: #### 2532-0, 06257-4 #### [facility] CLIA [id number] [address] [place], [place] [address]TC9 [Moles/Vol]26 mmol/ELcttra02-80ZsmpsqdipParkview Health Montpelier Hospital Comment on above:Order Comment: Specimen Type: BLOOD SPECIMEN Ordering Facility: [facility] Address: [address] [place], [place] [address]Performed By: #### 2532-0, 26474-2 #### [facility] CLIA [id number] [address] [place] [address]Nuzodrcica [Mass/Vol]1.20 mg/dLHigh0.58-0.96[facility] on above:Order Comment: Specimen Type: BLOOD SPECIMEN Ordering Facility: [facility] Address: [address] [place], [place] [address]Performed By: #### 2532-0, 59052-9 #### [facility] CLIA [id number] [address] [place] [address]Ncrwqewxls and Glomerular filtration rate.predicted panel (S/P/Bld)46 mL/min/1.73m???Low>=60[facility] on above: Order Comment: Specimen Type: BLOOD SPECIMEN Ordering Facility: [facility] Address: [address] [place], [place] [phone] Comment: Estimated Glomerular Filtration Rate (eGFR) is calculated using the 2020 CKD-EPI cre atinine equation. This equation utilizes serum creatinine, sex, and age as parameters. The creatinine assay has traceable calibration to isotope dilution- mass spectrometry. Refer to KDIGO guidelines for clinical interpretation. In patients with unstable renal function, e.g. those with acute kidney injury, the eGFR may not accurately reflect actual GFR.Performed By: #### 2532-0, #### [facility] CLIA [id number] [address] [place], [place] [address]Hqwxgsa [Mass/Vol]231 mg/bBEbmj46-44DlhkmqnwnParkview Health Montpelier Hospital Comment on above:Order Comment: Specimen Type: BLOOD SPECIMEN Ordering Facility: [facility] Address: [address] [place], [place] [phone] Comment: The [place] Diabetes Association (ADA) provides guidance for cutoff [...] Standards of Medical Care in Diabetes 2016, [place] Diabetes Association. Diabetes Care. 2016.39(Suppl 1).Performed By: #### 2532-0, #### [facility] CLIA [id number] [address] [place] [address]Qudglhhmj [Moles/Vol]5.3 mmol/LHigh3.7-5.1CDayton Children's HospitalComment on above:Order Comment: Specimen Type: BLOOD SPECIMEN Ordering Facility: [facility] Address: [address] [place] [address]Vvwlpwyja By: #### 2532-0, #### [facility] CLIA [id number] [address] [place], [place] [address]Ojuunjx [Mass/Vol]6.9 g/dLNormal6.3-8.0Park[facility] Montpelier HospitalCommunson medical center on above:Order Comment: Specimen Type: BLOOD SPECIMEN Ordering Facility: [facility] Address: [address] [place], [place] [address]Performed By: #### 2532-0, 58253-8 #### [facility] CLIA [id number] [address] [place], [place] [address]Ijduch [Moles/Vol]142 mmol/NHabeck198-252ThuvcnnpqClinton Memorial Hospital on above:Order Comment: Specimen Type: BLOOD SPECIMEN Ordering Facility[facility] Address: [address] [place], [place] [address]Performed By: #### 2532-0, 43676-8 #### [facility] CLIA [id number] [address] [place], [place] [address]Mfkn nitrogen [Mass/Vol]36 mg/dLHigh7-21[facility] on above:Order Comment: Specimen Type: BLOOD SPECIMEN Ordering Facility: [facility] Address: [address] [place], [place] [address]Performed By: #### 2532-0, 41829-1 #### [facility] CLIA [id number] [address] [place] [address]Iwuxqvypkhz/100 WBC Auto (Bld)on 98-84-7262Frbkairmxog/100 WBC (Bld)Automated eosinophil %The Jewish HospitalErythrocyte distribution width Auto (RBC) [Ratio]on 70-64-9821Bohxnzpndix distribution width (RBC) [Ratio]Erythrocyte distribution width [Ratio] by Automated count11.5-15.0 The Jewish HospitalHematocrit Auto (Bld) [Volume fraction]on 96-63-3081Qntujsryum (Bld) [Volume fraction]Hematocrit [Volume Fraction] of Blood by Automated count36.0-46.0The Jewish HospitalHemoglobin [Mass/volume] in Bloodon 77-74-0149Zdnahjhdpt (Bld) [Mass/Vol]Hemoglobin [Mass/volume] in Blood11.5-15.5FOhio State Health SystemLACTATE DEHYDROGENASEon 02-80-2621SXE [Catalytic activity/Vol]184 U/L135 - 214 U/L Regency Hospital ToledoLD SerPl-cCncon 73-67-2559EYB [Catalytic activity/Vol]184 U/L Njwhbc747-375Mdzegcjtx Clinic ClevelandComment on above:Order Comment: Specimen Type: BLOOD SPECIMEN Order[facility] Facility[facility] Address: [address] [place], [place] [address]Sipmbzaht By: #### 2532-0, 71086-2 #### [facility] CLIA [id number] [address] [place] [address]ZDS [Catalytic activity/Vol]on 51-81-1989Pklqfcwtysoqia and review of laboratory resultsNormalCTrumbull Regional Medical CenterLaboratory - Chemistry and Chemistry - challengeon 52-01-6065Uvbtrsu [Mass/Vol]4.1 g/dL 3.9-4.9The [facility] HospitalALP [Catalytic activity/Vol]107 U/L 34-123The Jewish HospitalALT [Catalytic activity/Vol]21 U/L7-38 The [facility] HospitalAST [Catalytic activity/Vol]23 U/L13-35 The [facility] HospitalBilirubin [Mass/Vol]0.2 mg/dL0.2-1.3FOhio State Health SystemCalcium [Mass/Vol]9.3 mg/dL8.5-10.2FOhio State Health SystemChloride [Moles/Vol]105 mmol/X02-913VjepwyvrpThe Jewish HospitalCO2 [Moles/Vol]26 mmol/E85-66QknyhrgghThe Jewish HospitalCreatinine [Mass/Vol]1.20 mg/dLHigh0.58-0.96The Jewish HospitalGlucose [Mass/Vol]231 mg/vMPmkx12-32KlwsayufuThe Jewish HospitalComment on above: The [place] Diabetes Association (ADA) provides guidance for cutoff values for fasting glucose andrandom glucose. The ADA defines fasting as no [...] hyperglycemia or hyperglycemic crisis, random plasma glucose resultsgreater than or equal to 200 mg/dL meet the criteria for diagnosis of diabetes.Reference: Standardsof Medical Care in Diabetes 2016, [place] Diabetes Association. Diabetes Care. 2016.39(Suppl 1).LDH [Catalytic activity/Vol]184 U/A961-343HslobivyjThe Jewish HospitalPotassium [Moles/Vol]5.3 mmol/LHigh3.7-5.1FCincinnati VA Medical Centerodium [Moles/Vol]142 mmol/Q474-654TdfdksptyThe Jewish HospitalUrea nitrogen [Mass/Vol]36 mg/dLHigh7-21[facility] Laboratory - Hematology and Cell countson 12-01-9031Ukaykafkpet (Bld) [#/Vol] 0.19 10*3/uL<0.46The Jewish HospitalLeukocytes [#/volume] corrected for nucleated erythrocytes in Blood by Automated counon 04-93-1992RQV corrected for nucl RBC Auto (Bld) [#/Vol]Leukocytes [#/volume] corrected for nucleated erythrocytes in Blood by Automated counHigh3.70-11.00The Jewish HospitalComment on above:No clot detected.Results checked and verified.Lymphocytes Auto (Bld) [#/Vol]on 61-88-3579Onrprozawje (Bld) [#/Vol] Lymphocytes [#/volume] in Blood by Automated countHigh1.00-4.00The Jewish HospitalLymphocytes/100 WBC Auto (Bld)on 05-26-2024 Lymphocytes/100 WBC (Bld)Lymphocytes/100 leukocytes in Blood by Automated count [facility] CenterH Auto (RBC) [Entitic mass]on 60-80-3635GSQ (RBC) [Entitic mass]MCH [Entitic mass] by Automated count26.0-34.0The Jewish HospitalMCHC Auto (RBC) [Mass/Vol]on 26-37-7395QNQH (RBC) [Mass/Vol]MCHC [Mass/volume] by Automated count30.5-36.0The Jewish HospitalMCV Auto (RBC) [Entitic vol]on 56-81-3448EFT (RBC) [Entitic vol] MCV [Entitic volume] by Automated count80.0-100.0The Jewish HospitalMonocytes Auto (Bld) [#/Vol]on 91-65-8839Zfncpkeuu (Bld) [#/Vol]Automated blood monocyte count<0.87The Jewish HospitalMonocytes/100 WBC Auto (Bld)on 84-18-2462Zvsezcdxs/100 WBC (Bld)Automated monocyte %The Jewish HospitalNeutrophils Auto (Bld) [#/Vol]on 40-01-1700Btlzmfqjhga (Bld) [#/Vol]Neutrophils [#/volume] in Blood by Automated count1.45-7.50The Jewish HospitalNeutrophils/100 WBC Auto (Bld)on 05-26-2024 Neutrophils/100 WBC (Bld)Automated neutrophil %[facility] No Panel Informationon 51-07-2604Kskxcaylo GFR (CKD-EPI)46 mL/min/1.73m???Low >=60The Jewish HospitalComment on above:Estimated Glomerular Filtration Rate (eGFR) is calculated using the 2020 CKD-EPI creatinine equation. This equation utilizes serum creatinine, sex, and age as parameters. The creatinine assay has traceable calibration to isotope dilution-mass spectrometry. Refer to KDIGO guidelines for clinical interpretation. In patients with unstable renal function, e.g. those with acute kidney injury, the eGFRmay not accurately reflect actual GFR.Normal RBC MorphologyReviewed: see results of individual morphologiesThe Jewish HospitalNucleated RBC Auto (Bld) [#/Vol]on 55-66-2280Wvkpjkcyf RBC (Bld) [#/Vol]Nucleated erythrocytes [#/volume] in Blood by Automated count<0.01[facility] Nucleated erythrocytes [Presence] in Blood by Automated counton 05-26-2024 Nucleated RBC Auto Ql (Bld)Nucleated erythrocytes [Presence] in Blood by Automated countThe Jewish HospitalOvalocyte detectionon 05-26-2024 Ovalocytes LM Ql (Bld)Ovalocyte detectionThe [facility] Hospital Platelet adequacy [Presence] in Blood by Light microscopyon 10-83-4588Ydhcrkylu LM Ql (Bld)Platelet adequacy [Presence] in Blood by Light microscopyThe Jewish HospitalPlatelet mean volume Auto (Bld) [Entitic vol]on 40-59-8406Xvacrwig mean volume (Bld) [Entitic vol]Platelet mean volume [Entitic volume] in Blood by Automated count9.0-12.7FOhio State Health System Platelets Auto (Bld) [#/Vol]on 99-08-5900Qohlumqrq (Bld) [#/Vol]Platelets [#/volume] in Blood by Automated gebqa411-175CtofcagcjThe Jewish Hospital Polychromasia [Presence] in Blood by Light microscopyon 26-35-0011Qjpirczyzkbvk LM Ql (Bld)Polychromasia [Presence] in Blood by Light microscopyThe Jewish HospitalProtein [Mass/volume] in Serum or Plasmaon 05-26-2024 Protein [Mass/Vol]Protein [Mass/volume] in Serum or Plasma6.3-8.0The Jewish HospitalRBC Auto (Bld) [#/Vol]on 83-49-7020GJL (Bld) [#/Vol] Erythrocytes [#/volume] in Blood by Automated count3.90-5.20[facility]land District Hospitalerum or plasma anion gap determinationon 82-06-2008Ayibi gap [Moles/Vol]Serum or plasma anion gap determination8-15The [facility] HospitalX-ray reportOrdered By: Stanford Arndt on 14-96-8335Ilkeo reportCLEVELAND [facility] [address] XRay Report Signed Patient: Kathy Washburn MR#: [id number] : 1940 Acct:[id number] Age/Sex: 83 / F ADM Date: 4 Loc: XD Room: Type: [facility] Attending Dr: Ayanna Vicente DO Copies to: Ayanna Vicente DO~ Ordering Provider: Ayanna Vicente DO Date of Service: 05/26/24 XR/XR hip LT min 2V(w/wo pelvis)*: M25.552 - Pain in left hip ([id number]) XR/XR knee LT 4V*: M25.552 - Pain [...] Stanford Arndt M.D.05/26/2024 4:55 PM Dictation Location: [place] [address] Transcribed By: [facility] 05/26/241654 Dictated By: Stanford Arndt DO 05/26/241652 Signed By: 05/26/241654 The Jewish HospitalXR knee LT 4V*on 96-96-6920AM knee LT 4V* [facility] [place] [address] [place] [address] XRay Report Signed Patient: Kathy Washburn MR#: [id number] : 1940 Acct:[id number] Age/Sex: 83 / F ADM Date: 05/26/24 Loc: XD Room: Type: [facility] Attending Dr: Ayanna Vicente DO Copies to: Ayanna Vicente DO Ordering Provider: Ayanna Vicente DO Date of Service: 05/26/24 XR/XR hip LT min 2V(w/wo pelvis)*: M25.552 - Pain in left hip ([id number]) XR/XR knee LT 4V*: M25.552 - Pain [...] Stanford Arndt M.D.05/26/2024 4:55 PM Dictation Location: [place] [address] Transcribed By: STAS 05/26/24 1655 Dictated By: Stanford Arndt DO 05/26/24 1653 Signed By: 05/26/24 1655[facility] Physician [facility]MM screening mammo BI w/CADon 22-28-1361PN screening mammo BI w/CADCLEVELAND [facility]IN[facility] [place] [address] [place] [address] Mammography Report Signed Patient: Kathy Washburn MR#: [id number] : 1940 Acct:[id number] Age/Sex: 83 / F ADM Date: 05/18/24 Loc: [place] Room: Type: [facility] Attending Dr: Ayanna Vicente DO Copies [...] Stanford Arndt M.D.05/18/2024 3:23 PM Dictation Location: [facility] Transcribed By: STAS 05/18/24 1523 Dictated By: Stanford Arndt DO 05/18/24 1459 Signed By: 05/18/24 1523[facility] Physician GroupCNOVon 99-90-1021CABHEkoiiq Visit (INEZ) KATHY WASHBURN ([id number]) 1940 F Date Time Provider Department 05/17/24 1:00 PM ZOHAIB GERMAN During your visit today, we recorded the following information about you: Pulse Blood pressure Weight Height 62/minute 117/75 103.4 kg 1.727 m Zohaib German MD 05/17/2024 1:34 PM Signed [facility] Out[facility] Date of Service: 05/17/2024 Patient: Kathy Washburn Medical Record: [id number] Primary Care Physician: Ayanna Vicente DO Last Rheumatology visit: None at [facility] Referring Provider: No referring provider defined for [...] Used Substance Use Topics (more content not included)...NormalParkview Health Montpelier HospitalA1C with Estimated Average Gluon 08-77-1023Ycwstuo [Mass/Vol]194 mg/dL NormalThe [facility] Physician GroupComment on above:Result Comment: PERFORMED BY: [facility] [address] [place] [address] PATHOLOGIST [employer] FINISHER MATHIEU RASCON M.D.Performed By: #### LIPID, A1C WT eA, T4F, URMACRERAT, TSH3, CUU, CMP, ADDONUAPLUS, T3T ####[facility] [address] [place] [id number] USAAlanine aminotransferase [Enzymatic activity/volume] in Serum or PlasmaOrdered By: Ayanna Vicente on 14-87-9208EWC [Catalytic activity/Vol]25 U/LNormal[address] [place], [place] [address]Comment on above: Performed By: #### LIPID, A1C WTH eA, T4F, URMACRERAT, TSH3, CUU, CMP, ADDONUAPLUS, T3T #### [facility] [address] [place] [id number] USAALT [Catalytic activity/Vol]Alanine aminotransferase [Enzymatic activity/volume] in Serum or Plasma[address] [place], [place] [address]Albumin [Mass/volume] in Serum or Plasma by Bromocresol green (BCG) dye binding methoOrdered By: Ayanna Vicente on 81-38-9833Vinyhaf BCG dye [Mass/Vol]4.1 g/dL3.5-5.7FOhio State Health SystemAlbumin BCG dye [Mass/Vol]Albumin [Mass/volume] in Serum or Plasma by Bromocresol green (BCG) dye binding [facility]ero 3.5-5.7FOhio State Health SystemAlkaline phosphatase [Enzymatic activity/volume] in Serum or PlasmaOrdered By: Ayanna Vicente on 08-07-2198QSK [Catalytic activity/Vol]89 U/ZTfjbhd85-827Xrfwkqwkz[address] Comment on above:Performed By: #### LIPID, A1C WTH eA, T4F, URMACRERAT, TSH3, CUU, CMP, ADDONUAPLUS, T3T #### [facility] [address] [place] [id number] USAALP [Catalytic activity/Vol]Alkaline phosphatase [Enzymatic activity/volume] in Serum or Tbuwms64-756Rpqhcziye[address] [place], [place] [address]Appearance of UrineOrdered By: Ayanna Vicente on 23-88-9669Ookkwchiwd (U) Urine appearanceClearFOhio State Health SystemAspartate aminotransferase [Enzymatic activity/volume] in Serum or PlasmaOrdered By: Ayanna Vicente on 13-81-9572YMM [Catalytic activity/Vol]23 U/NXpgvbo87-44Gaimufvxf41 Munoz StreetComment on above:Performed By: #### LIPID, A1C WTH eA, T4F, URMACRERAT, TSH3, CUU, CMP, ADDONUAPLUS, T3T #### [facility] [address] [place] [id number] USAAST [Catalytic activity/Vol]Aspartate aminotransferase [Enzymatic activity/volume] in Serum or Snxcmp21-10XurekchcqThe Jewish HospitalBacteria [Presence] in Urine sediment by Light microscopyOrdered By: Ayanna Vicente on 37-53-7749Eesnffzg LM Ql (Urine sed)4+ [HPF]HighNonMagruder HospitalBacteria LM Ql (Urine sed)Bacteria [Presence] in Urine sediment by Light microscopyHighNone [facility] Bilirubin Test strip Ql (U)Ordered By: Ayanna Vicente on 97-30-6626Punnohyrl Ql (U)NegativeNegativeThe Jewish HospitalBilirubin Ql (U) Bilirubin.total [Presence] in Urine by Test stripNegativeThe Jewish HospitalBilirubin.total [Mass/volume] in Serum or PlasmaOrdered By: Ayanna Vicente on 87-35-5160Zyvntobwc [Mass/Vol]0.4 mg/dLNormal0.3-1.0The Jewish HospitalComment on above:Performed By: #### LIPID, A1C WTH eA, T4F, URMACRERAT, TSH3, CUU, CMP, ADDONUAPLUS, T3T #### [facility] [address] [place] [address] USABilirubin [Mass/Vol]Bilirubin.total [Mass/volume] in Serum or Plasma0.3-1.0The Jewish HospitalBlood estimated average glucose determination by estimation from glycated hemoglobinOrdered By: Ayanna Vicente on 96-62-0467Xceaxwb glucose Estimated from glycated hemoglobin (Bld) [Mass/Vol]Glucose mean value [Mass/volume] in Blood Estimated from glycated hemoglobinThe Jewish HospitalCalcium [Mass/volume] in Serum or PlasmaOrdered By: Ayanna Vicente on 02-50-3648Nirpswl [Mass/Vol]9.6 mg/dLNormal 8.6-10.3FOhio State Health SystemComment on above:Performed By: #### LIPID, A1C WTH eA, T4F, URMACRERAT, TSH3, CUU, CMP, ADDONUAPLUS, T3T #### [facility] [address] [place] [address] USACalcium [Mass/Vol]Calcium [Mass/volume] in Serum or Plasma 8.6-10.3FOhio State Health SystemCarbon dioxide, total [Moles/volume] in Serum or PlasmaOrdered By: Ayanna Vicente on 60-63-3063EH5 [Moles/Vol]30.2 mmol/L Cjarzs56.0-31.0The Jewish HospitalComment on above:Performed By: #### LIPID, A1C WTH eA, T4F, URMACRERAT, TSH3, CUU, CMP, ADDONUAPLUS, T3T #### [facility] [address] [place] [address] USACO2 [Moles/Vol]Carbon dioxide, total [Moles/volume] in Serum or Hrobjf86.0-31.0The Jewish HospitalChloride [Moles/volume] in Serum or PlasmaOrdered By: Ayanna Vicente on 65-69-7638Rwsadbxu [Moles/Vol]105 mmol/ITeligj89-654Duijlgrem[address] [place], [place] [address]Comment on above:Performed By: #### LIPID, A1C WT eA, T4F, URMACRERAT, TSH3, CUU, CMP, ADDONUAPLUS, T3T #### [facility] [address] [place] [address] USAChloride [Moles/Vol]Chloride [Moles/volume] in Serum or Iicxkc54-680GyaxewnvzThe Jewish HospitalCholesterol [Mass/volume] in Serum or PlasmaOrdered By: Ayanna Vicente on 09-67-6309Mgjzuhcjlkf [Mass/Vol]134 mg/dL Iwj084-616TdinyeyrdThe Jewish HospitalComment on above:Chol less than 200 mg/dl low riskChol 201-239 mg/dl borderline riskChol 240 mg/dl and greater high riskResult Comment: Chol less than 200 mg/dl low risk Chol 201-239 mg/dl borderline risk Chol 240 mg/dl and greater high riskPerformed By: #### LIPID, A1C WT eA, T4F, URMACRERAT, TSH3, CUU, CMP, ADDONUAPLUS, T3T #### [facility] [address] [place] [address] USACholesterol [Mass/Vol]Cholesterol [Mass/volume] in Serum or AznnuvHzp045-061ClwldugxhThe Jewish HospitalComment on above:Chol less than 200 mg/dl low riskChol 201-239 mg/dl borderline riskChol 240 mg/dl and greater high riskCholesterol in HDL [Mass/volume] in Serum or PlasmaOrdered By: Ayanna Vicente on 18-02-5540Eaohoxlygaq in HDL [Mass/Vol]Serum or plasma high density lipoprotein (HDL) cholesterol grktwuagknd27-65SlyhvbtgnThe Jewish HospitalComment on above:HDL CHOL ATP-III CLASSIFICATION Cardiovascular RiskHDL > or equal to 60 mg/dL LOWHDL < 40 mg/dL HIGHCholesterol in LDL Calc [Mass/Vol] Ordered By: Ayanna Vicente on 45-09-8417Wlverzlfbhi in LDL [Mass/Vol]46 mg/dL0-100 The Jewish HospitalComment on above:LDL ATP III CLASSIFICATIONLDL less than 100 mg/dL OptimalLDL 100-129 mg/dL Near or above sxmtmvuWYP418-121 mg/dL Borderline highLDL 160-189 mg/dL HighLDL greater than 189 mg/dL Very high Cholesterol in LDL [Mass/Vol]Cholesterol in LDL [Mass/volume] in Serum or Plasma by calculation0The Jewish HospitalComment on above:LDL ATP III CLASSIFICATIONLDL less than 100 mg/dL OptimalLDL 100-129 mg/dL Near or above zawigckTZS643-134 mg/dL Borderline highLDL 160-189 mg/dL HighLDL greater than 189 mg/dL Very highCholesterol in VLDL Calc [Mass/Vol]Ordered By: Ayanna Vicente on 31-35-4514Xvodyhwcwqd in VLDL [Mass/Vol]47 mg/dLThe Jewish HospitalCholesterol in VLDL [Mass/Vol]Cholesterol in VLDL [Mass/volume] in Serum or Plasma by calculationThe Jewish HospitalColor Auto (U)Ordered By: Ayanna Vicente on 37-43-6245Tegzg (U)Color of Urine by AutoYellowThe Jewish HospitalColor of Urine by AutoOrdered By: Ayanna Vicente on 19-24-5745Wdayl (U)YellowNormalYellowThe Jewish HospitalComment on above:Order Comment: Name Collection Type:: Clean-Voided MidstreamPerformed By: #### LIPID, A1C WTH eA, T4F, URMACRERAT, TSH3, CUU, CMP, ADDONUAPLUS, T3T #### [facility] [address] [place] [address] USAComprehensive Metabolic Panelon 11-25-3655Oadfmst [Mass/Vol]4.1 g/dLNormal3.5-5.7The [facility] Physician GroupComment on above: Performed By: #### LIPID, A1C WTH eA, T4F, URMACRERAT, TSH3, CUU, CMP, ADDONUAPLUS, T3T #### [facility] [address] [place] [address] USAGFR/1.73 sq M.predicted MDRD (S/P/Bld) [Vol rate/Area] 51.605 mL/min/{1.73_m2}NormalThe [facility] Physician GroupComment on above: Performed By: #### LIPID, A1C WTH eA, T4F, URMACRERAT, TSH3, CUU, CMP, ADDONUAPLUS, T3T #### [facility] [address] [place] [id number] USACreatinine [Mass/volume] in Serum or PlasmaOrdered By: Ayanna Vicente on 54-70-7988Uccflzjkcs [Mass/Vol]1.08 mg/dLNormal0.60-1.20 The Jewish HospitalComment on above:Performed By: #### LIPID, A1C WTH eA, T4F, URMACRERAT, TSH3, CUU, CMP, ADDONUAPLUS, T3T #### [facility] [address] [place] [id number] USACreatinine [Mass/Vol]Creatinine [Mass/volume] in Serum or Plasma0.60-1.20The Jewish HospitalCreatinine [Mass/volume] in UrineOrdered By: Ayanna Vicente on 32-92-3554Dnuuatbaoi (U) [Mass/Vol]93.00 mg/dL The Jewish HospitalComment on above:No reference range established Creatinine (U) [Mass/Vol]Creatinine [Mass/volume] in UrineThe Jewish HospitalComment on above:No reference range establishedDipstick and Microscopicon 72-33-5554Yjvhmohu,Urine4+HighNone SeenThe [facility] Physician GroupComment on above:Order Comment: Name Collection Type:: Clean-Voided MidstreamPerformed By: #### LIPID, A1C WTH eA, T4F, URMACRERAT, TSH3, CUU, CMP, ADDONUAPLUS, T3T #### [facility] [address] [place] [id number] USABilirubin,UrineNegativeNormalNegativeThe [facility] Physician GroupComment on above:Order Comment: Name Collection Type:: Clean- Voided MidstreamPerformed By: #### LIPID, A1C WTH eA, T4F, URMACRERAT, TSH3, CUU, CMP, ADDONUAPLUS, T3T #### [place] [address] USAGlucose Ql (U)NormalNormalNormalThe [facility] Physician GroupComment on above:Order Comment: Name Collection Type:: Clean-Voided MidstreamPerformed By: #### LIPID, A1C WTH eA, T4F, URMACRERAT, TSH3, CUU, CMP, ADDONUAPLUS, T3T #### [place] [address] USAHyaline Casts,Nufnq8-4Aplg4-8Zht [facility] Comment on above:Order Comment: Name Collection Type:: Clean-Voided Midstream Result Comment: PERFORMED BY: [place] [address] PATHOLOGIST [employer] FINISHER MATHIEU RASCON M.D.Performed By: #### LIPID, A1C WTH eA, T4F, URMACRERAT, TSH3, CUU, CMP, ADDONUAPLUS, T3T #### [place] [address] USANitrite,UrineNegativeNormalNegativeThe [facility] Physician GroupComment on above:Order Comment: Name Collection Type:: Clean-Voided MidstreamPerformed By: #### LIPID, A1C WTH eA, T4F, URMACRERAT, TSH3, CUU, CMP, ADDONUAPLUS, T3T #### [place] [address] USAOccult Blood,UrineNegativeNormalNegativeThe [facility] Physician GroupComment on above:Order Comment: Name Collection Type:: Clean- Voided MidstreamPerformed By: #### LIPID, A1C WTH eA, T4F, URMACRERAT, TSH3, CUU, CMP, ADDONUAPLUS, T3T #### [place] [address] USAProtein,UrineTraceHighNegativeThe [facility] Physician GroupComment on above:Order Comment: Name Collection Type:: Clean-Voided MidstreamPerformed By: #### LIPID, A1C WTH eA, T4F, URMACRERAT, TSH3, CUU, CMP, ADDONUAPLUS, T3T #### [place] [address] USARBC LM.HPF (Urine sed) [#/Area]0 /[HPF]Normal0-4The [facility] Physician GroupComment on above:Order Comment: Name Collection Type:: Clean-Voided MidstreamPerformed By: #### LIPID, A1C WTH eA, T4F, URMACRERAT, TSH3, CUU, CMP, ADDONUAPLUS, T3T #### [place] [address] USASpecificy [place],Urine1.107Dmegfh5.001-1.030The [facility] Physician GroupComment on above:Order Comment: Name Collection Type:: Clean- Voided MidstreamPerformed By: #### LIPID, A1C WTH eA, T4F, URMACRERAT, TSH3, CUU, CMP, ADDONUAPLUS, T3T #### [place] [address] USASquamous Epithelial Cell,Hgcup4-1Ipel1-1Jzs [facility] Physician GroupComment on above:Order Comment: Name Collection Type:: Clean- Voided MidstreamPerformed By: #### LIPID, A1C WTH eA, T4F, URMACRERAT, TSH3, CUU, CMP, ADDONUAPLUS, T3T #### [place] [address] USAUrobilinogen,UrineNormalNormalNormalThe [facility] Physician GroupComment on above:Order Comment: Name Collection Type:: Clean- Voided MidstreamPerformed By: #### LIPID, A1C WTH eA, T4F, URMACRERAT, TSH3, CUU, CMP, ADDONUAPLUS, T3T #### [place] [address] USAWBC,Rwwzu90-25Wnof8-6Zbg [facility] Physician GroupComment on above:Order Comment: Name Collection Type:: Clean-Voided MidstreamPerformed By: #### LIPID, A1C WTH eA, T4F, URMACRERAT, TSH3, CUU, CMP, ADDONUAPLUS, T3T #### [facility] [address] [place] [address] USAEpithelial cells.squamous [#/area] in Urine sediment by Microscopy high power fieldOrdered By: Ayanna Vicente on 76-16-1440Nxglpmkmcx cells.squamous LM.HPF (Urine sed) [#/Area]3-4 [HPF]High0-2FOhio State Health SystemEpithelial cells.squamous LM.HPF (Urine sed) [#/Area]Epithelial cells.squamous [#/area] in Urine sediment by Microscopy high power fieldHigh0-2 The Jewish HospitalErythrocytes [#/area] in Urine sediment by Microscopy high power fieldOrdered By: Ayanna Vicente on 84-37-9741EIS LM.HPF (Urine sed) [#/Area]0-1 [HPF]0-4FOhio State Health SystemRBC LM.HPF (Urine sed) [#/Area]Erythrocytes [#/area] in Urine sediment by Microscopy high power field0-4FOhio State Health SystemGlobulin Calc (S) [Mass/Vol] Ordered By: Ayanna Vicente on 32-04-6057Pjzbsvxp (S) [Mass/Vol]Serum globulin measurement by calculation (mass/volume)The Jewish HospitalGlucose [Mass/volume] in Serum or PlasmaOrdered By: Ayanna Vicente on 62-12-2648Ealulav [Mass/Vol]129 mg/wMBgyi05-996ZrpmqintsThe Jewish HospitalComment on above: ADA recommended reference rangeRandom Glucose Reference Range is dependent on time and content of last meal. Glucose of more than 200 mg/dL in a nonstressed, ambulatory subject supports the diagnosisof Diabetes Mellitus.Result Comment: Random Glucose Reference Range is dependent on time and content of last meal. Glucose of more than 200 mg/dL in a nonstressed, ambulatory subject supports the diagnosis of Diabetes Mellitus. ADA recommended reference rangePerformed By: #### LIPID, A1C WTH eA, T4F, URMACRERAT, TSH3, CUU, CMP, ADDONUAPLUS, T3T #### [facility] [address] [place] [address] USAGlucose [Mass/Vol]Glucose [Mass/volume] in Serum or Plasma Zvme08-424OgxgocwzlThe Jewish HospitalComment on above:ADA recommended reference rangeRandom Glucose Reference Range is dependent on time and content of last meal. Glucose of more than 200 mg/dL in a nonstressed, ambulatory subject supports the diagnosisof Diabetes Mellitus.Glucose [Mass/volume] in Urine by Test stripOrdered By: Ayanna Vicente on 95-19-8601Sxjfdmu Test strip (U) [Mass/Vol]Normal mg/dLNoSouthwest General Health CenterGlucose Test strip (U) [Mass/Vol]Glucose [Mass/volume] in Urine by Test stripNoSouthwest General Health CenterGlucose mean value [Mass/volume] in Blood Estimated from glycated hemoglobinOrdered By: Ayanna Vicente on 47-06-2944Wrsmsuz glucose Estimated from glycated hemoglobin (Bld) [Mass/Vol]194 mg/dLThe Jewish HospitalHemoglobin A1c percentageOrdered By: Ayanna Vicente on 05-06-2024 HbA1c (Bld) [Mass fraction]8.4 %High4.3-5.6FOhio State Health System Comment on above:Increased risk for diabetes: 5.7 - 6.4diabetes: >6.4glycemic control for adults with diabetes: <7.0Result Comment: Increased risk for diabetes: 5.7 - 6.4 diabetes: >6.4 glycemic control for adults with diabetes: <7.0Performed By: #### LIPID, A1C WTH eA, T4F, URMACRERAT, TSH3, CUU, CMP, ADDONUAPLUS, T3T ####[facility] [place] [address] USAHemoglobin A1c/Hemoglobin.total in BloodOrdered By: Ayanna Vicente on 15-78-4683KnU2q (Bld) [Mass fraction]Hemoglobin A1c percentageHigh4.3-5.6FOhio State Health SystemComment on above:Increased risk for diabetes: 5.7 - 6.4diabetes: >6.4glycemic control for adults with diabetes: <7.0Hemoglobin Test strip Ql (U)Ordered By: Ayanna Vicente on 76-30-3136Aovctvmabz Ql (U)NegativeNegative The Jewish HospitalHemoglobin Ql (U)Hemoglobin [Presence] in Urine by Test stripNegProMedica Defiance Regional HospitalHyaline casts LM.LPF (Urine sed) [#/Area]Ordered By: Ayanna Vicente on 49-35-0008Wjdffed casts (Urine sed) [#/Area]5-9 [LPF]High0-1FOhio State Health SystemHyaline casts (Urine sed) [#/Area]Hyaline casts [#/area] in Urine sediment by Microscopy low power fieldHigh0Ohio State Health SystemKetones Test strip Ql (U) Ordered By: Ayanna Vicente on 84-90-9591Hxedaux Ql (U)Ketones [Presence] in Urine by Test stripNegProMedica Defiance Regional HospitalKetones [Presence] in Urine by Test stripOrdered By: Ayanna Vicente on 08-35-4265Dlaturi Ql (U)Negative NormalNegProMedica Defiance Regional HospitalComment on above:Order Comment: Name Collection Type:: Clean-Voided MidstreamPerformed By: #### LIPID, A1C WTH eA, T4F, URMACRERAT, TSH3, CUU, CMP, ADDONUAPLUS, T3T #### [facility] [address] [place] [address] USALaboratory - Microbiology and Antimicrobial susceptibility Ordered By: Ayanna Vicente on 25-14-6606Ressgipx identified Cx Nom (U)Klebsiella [facility] HospitalBacteria identified Cx Nom (U) Klebsiella variicolaAbZanesville City HospitalLeukocyte esterase [Presence] in Urine by Test stripOrdered By: Ayanna Vicente on 92-93-8093Bmlfzeows esterase Test strip Ql (U)2+HighNegProMedica Defiance Regional Hospital Comment on above:Order Comment: Name Collection Type:: Clean-Voided Midstream Performed By: #### LIPID, A1C WTH eA, T4F, URMACRERAT, TSH3, CUU, CMP, ADDONUAPLUS, T3T #### [facility] [address] [place] [address] USALeukocyte esterase Test strip Ql (U)Leukocyte esterase [Presence] in Urine by Test stripVeterans Affairs Medical CenterNegProMedica Defiance Regional Hospital Leukocytes [#/area] in Urine sediment by Microscopy high power fieldOrdered By: Ayanna Vicente on 81-77-1014LNV LM.HPF (Urine sed) [#/Area]10-19 [HPF]High0-4 The Jewish HospitalW LM.HPF (Urine sed) [#/Area]Leukocytes [#/area] in Urine sediment by Microscopy high power fieldHigh0-4FOhio State Health SystemLipid Panelon 44-24-6635MWL Cholesterol,Xlrrmzgilz07 mg/dLNormal0-100The [facility] Physician GroupComment on above:Result Comment: LDL ATP III CLASSIFICATION LDL less than 100 mg/dL Optimal LDL 100-129 mg/dL Near or above optimal LDL 130-159 mg/dL Borderline high LDL 160-189 mg/dL High LDL greater than 189 mg/dL Very highPerformed By: #### LIPID, A1C WTH eA, T4F, URMACRERAT, TSH3, CUU, CMP, ADDONUAPLUS, T3T #### [facility] [address] [place] [address] USATriglyceride w/Yjting455 mg/dLHigh0-149[facility] Physician GroupComment on above:Result Comment: TRIG ATP III CLASSIFICATION TRIG less than 150 mg/dL Normal TRIG 150-199 mg/dL Borderline high TRIG 200-500 mg/dL High TRIG greater than 500 mg/dL Very high Standard traceable to the Center for Disease Conrtrol and Prevention (CDC) test method.Performed By: #### LIPID, A1C WTH eA, T4F, URMACRERAT, TSH3, CUU, CMP, ADDONUAPLUS, T3T #### [facility] [address] [place] [address] USAVLDL NUMQGGIWAEX20 mg/dLNoCone Health Wesley Long Hospital Physician GroupComment on above:Performed By: #### LIPID, A1C WTH eA, T4F, URMACRERAT, TSH3, CUU, CMP, ADDONUAPLUS, T3T #### [facility] [address] [place] [address] USAMicroAlb Creat Ratio,Uon 55-20-0183Kneejadrzd, Urine (Random)93.00 mg/dLNoCone Health Wesley Long Hospital Physician GroupComment on above:Result Comment: No reference range establishedPerformed By: #### LIPID, A1C WTH eA, T4F, URMACRERAT, TSH3, CUU, CMP, ADDONUAPLUS, T3T #### [facility] [address] [place] [id number] USAMicroalbumin/Creatinine Ratio17.2 mg/gNormal0.0-30.0The [facility] Physician GroupComment on above:Result Comment: 30-300 mg/g indicates an increased risk for diabetic nephropathy. Greater than 300 mg/g is consistent with clinical nephropathy. (Am. J. Kidney Disease 1995, 25:107) PERFORMED BY: [place] [address] PATHOLOGIST [employer] FINISHER MATHIEU RASCON M.D.Performed By: #### LIPID, A1C WTH eA, T4F, URMACRERAT, TSH3, CUU, CMP, ADDONUAPLUS, T3T #### [place] [id number] USAMicroalbumin [Mass/volume] in UrineOrdered By: Ayanna Vicente on 20-87-2907Orvistt DL <= 20 mg/L (U) [Mass/Vol]1.6 mg/dLNormal0.0-1.8 The [facility] HospitalComment on above:Performed By: #### LIPID, A1C WTH eA, T4F, URMACRERAT, TSH3, CUU, CMP, ADDONUAPLUS, T3T #### [place] [id number] USAAlbumin DL <= 20 mg/L (U) [Mass/Vol]Microalbumin [Mass/volume] in Urine0.0-1.8The Jewish HospitalNitrite Test strip Ql (U)Ordered By: Ayanna Vicente on 36-20-6948Fwrzoyr Ql (U)NegativeNegative The Jewish HospitalNitrite Ql (U)Nitrite [Presence] in Urine by Test stripNegativeThe Jewish HospitalNo Panel InformationOrdered By: Ayanna Vicente on 48-39-5462Ywxpikqvf GFR (CKD-EPI)51.605 mL/MinThe Jewish HospitalPharmacy Creatinine Clearance (ChemN/[facility] HospitalPotassium [Moles/volume] in Serum or PlasmaOrdered By: Ayanna Vicente on 59-66-2320Djruxztuj [Moles/Vol]5.1 mmol/LNormal3.5-5.1FOhio State Health SystemComment on above:Performed By: #### LIPID, A1C WTH eA, T4F, URMACRERAT, TSH3, CUU, CMP, ADDONUAPLUS, T3T #### [facility] [address] [place] [address] USAPotassium [Moles/Vol]Potassium [Moles/volume] in Serum or Plasma3.5-5.1FOhio State Health SystemProtein Test strip (U) [Mass/Vol] Ordered By: Ayanna Vicente on 39-12-7192Hxkzxyv (U) [Mass/Vol]Trace mg/dLHigh NegativeThe Jewish HospitalProtein (U) [Mass/Vol]Protein [Mass/volume] in Urine by Test stripHighNegativeThe Jewish HospitalProtein [Mass/volume] in Serum or PlasmaOrdered By: Ayanna Vicente on 96-83-6269Fljnorn [Mass/Vol]6.8 g/dLNormal6.4-8.9The Jewish HospitalComment on above:Performed By: #### LIPID, A1C WTH eA, T4F, URMACRERAT, TSH3, CUU, CMP, ADDONUAPLUS, T3T #### [facility] [address] [place] [address] USAProtein [Mass/Vol]Protein [Mass/volume] in Serum or Plasma 6.4-8.9Highland District Hospitalerum globulin measurement by calculation (mass/volume)Ordered By: Ayanna Vicente on 72-02-3157Fvxifkmu (S) [Mass/Vol]2.7 g/dLNoSouthwest General Health CenterComment on above: Performed By: #### LIPID, A1C WTH eA, T4F, URMACRERAT, TSH3, CUU, CMP, ADDONUAPLUS, T3T #### [facility] [address] [place] [address] USASerum or plasma albumin/globulin mass ratioOrdered By: Ayanna Vicente on 48-93-3416Dkbqgdt/Globulin [Mass ratio]1.5 {ratio}Normal The Jewish HospitalComment on above:Performed By: #### LIPID, A1C WTH eA, T4F, URMACRERAT, TSH3, CUU, CMP, ADDONUAPLUS, T3T #### [facility] [address] [place] [address] USAAlbumin/Globulin [Mass ratio]Serum or plasma albumin/globulin mass ratioHighland District Hospitalerum or plasma anion gap determinationOrdered By: Ayanna Vicente on 03-90-3772Wysrp gap [Moles/Vol]10.9 mmol/LNormal6.0-15.0The Jewish HospitalComment on above:Performed By: #### LIPID, A1C WTH eA, T4F, URMACRERAT, TSH3, CUU, CMP, ADDONUAPLUS, T3T #### [facility] [address] [place] [id number] USAAnion gap [Moles/Vol]Serum or plasma anion gap determination6.0-15.0[facility] District Hospitalerum or plasma high density lipoprotein (HDL) cholesterol measurementOrdered By: Ayanna Vicente on 02-06-7708Nhaoqnnrvlj in HDL [Mass/Vol]41 mg/rJVnweqo20-25EwvzafgosThe Jewish HospitalComment on above:HDL CHOL ATP-III CLASSIFICATION Cardiovascular RiskHDL > or equal to 60 mg/dL LOWHDL < 40 mg/dL HIGHResult Comment: HDL CHOL ATP-III CLASSIFICATION Cardiovascular Risk HDL > or equal to 60 mg/dL LOW HDL < 40 mg/dL HIGHPerformed By: #### LIPID, A1C WTH eA, T4F, URMACRERAT, TSH3, CUU, CMP, ADDONUAPLUS, T3T #### [facility] [address] [place] [id number] USASerum or plasma total cholesterol/high density lipoprotein (HDL) cholesterol mass ratOrdered By: Ayanna Vicente on 05-06-2024 Cholesterol.total/Cholesterol in HDL [Mass ratio]3.3 {ratio}Normal<5.0The Jewish HospitalComment on above:Performed By: #### LIPID, A1C WTH eA, T4F, URMACRERAT, TSH3, CUU, CMP, ADDONUAPLUS, T3T #### [facility] [address] [place] [address] USACholesterol.total/Cholesterol in HDL [Mass ratio]Serum or plasma total cholesterol/high density lipoprotein (HDL) cholesterol mass rat<5.0 [facility] Hospitalodium [Moles/volume] in Serum or PlasmaOrdered By: Ayanna Vicente on 60-73-4701Jkqsxb [Moles/Vol]141 mmol/ZLxttnd700-376 The Jewish HospitalComment on above:Performed By: #### LIPID, A1C WTH eA, T4F, URMACRERAT, TSH3, CUU, CMP, ADDONUAPLUS, T3T #### [facility] [address] [place] [address] USASodium [Moles/Vol]Sodium [Moles/volume] in Serum or Plasma 136-145High[facility] District Hospitalpecific gravity Test strip (U) [Rel density]Ordered By: Ayanna Vicente on 38-53-9780Tzqsuima gravity (U) [Rel density] 1.0201.001-1.030[facility] Hospitalpecific gravity (U) [Rel density]Specific gravity of Urine by Test strip1.001-1.030The Jewish HospitalThyrotropin [Units/volume] in Serum or PlasmaOrdered By: Ayanna Vicente on 23-38-0449GNA Qn1.93 m[IU]/LNormal0.45-5.33The Jewish HospitalComment on above:Result Comment: PERFORMED BY: [facility] [address] [place] [id number] PATHOLOGIST [employer] FINISHER MATHIEU RASCON M.D.Performed By: #### LIPID, A1C WTH eA, T4F, URMACRERAT, TSH3, CUU, CMP, ADDONUAPLUS, T3T ####[facility] [address] [place] [address] USATSH QnThyrotropin [Units/volume] in Serum or Plasma 0.45-5.33The Jewish HospitalThyroxine (T4) free [Mass/volume] in Serum or PlasmaOrdered By: Ayanna Vicente on 48-92-6554Zyhz T4 [Mass/Vol]0.94 ng/dLNormal0.61-1.12The Jewish HospitalComment on above:Performed By: #### LIPID, A1C WTH eA, T4F, URMACRERAT, TSH3, CUU, CMP, ADDONUAPLUS, T3T ####[facility] [address] [place] [id number] [facility]ITALFree T4 [Mass/Vol]Thyroxine (T4) free [Mass/volume] in Serum or Plasma0.61-1.12 The Jewish HospitalTriglyceride [Mass/volume] in Serum or Plasma Ordered By: Ayanna Vicente on 29-54-6501Toimmluaeytz [Mass/Vol]235 mg/dLHigh0-149 The Jewish HospitalComment on above:TRIG ATP III CLASSIFICATIONTRIG less than 150 mg/dL NormalTRIG 150-199 mg/dL Borderline highTRIG 200-500 mg/dL High TRIG greater than 500 mg/dL Very highStandard traceable to the Center for Disease Conrtrol and Prevention (CDC) test method. Triglyceride [Mass/Vol]Triglyceride [Mass/volume] in Serum or PlasmaHigh0-149 The Jewish HospitalComment on above:TRIG ATP III CLASSIFICATIONTRIG less than 150 mg/dL NormalTRIG 150-199 mg/dL Borderline highTRIG 200-500 mg/dL High TRIG greater than 500 mg/dL Very highStandard traceable to the Center for Disease Conrtrol and Prevention (CDC) test method. Triiodothyronine (T3) Totalon 25-81-6518Dcgthkdjlgnezrko (T3) Total0.89 ng/mL Normal0.87-1.78The [facility] Clayton Physician GroupComment on above:Performed By: #### LIPID, A1C WTH eA, T4F, URMACRERAT, TSH3, CUU, CMP, ADDONUAPLUS, T3T ####[facility] [address] [place] [phone] [facility] Triiodothyronine (T3) [Mass/volume] in Serum or PlasmaOrdered By: Ayanna Vicente on 92-51-1085L4 [Mass/Vol]0.89 ng/mL0.87-1.78The Jewish HospitalT3 [Mass/Vol]Triiodothyronine (T3) [Mass/volume] in Serum or Plasma0.87-1.78 The Jewish HospitalUrea nitrogen [Mass/volume] in Serum or Plasma Ordered By: Ayanna Vicente on 09-77-1793Yovo nitrogen [Mass/Vol]29 mg/dLHigh02-04 The Jewish HospitalComment on above:Performed By: #### LIPID, A1C WTH eA, T4F, URMACRERAT, TSH3, CUU, CMP, ADDONUAPLUS, T3T #### [facility] [address] [place] [address] USAUrea nitrogen [Mass/Vol]Urea nitrogen [Mass/volume] in Serum or PlasmaVeterans Affairs Medical Center7-The Jewish HospitalUrine Cultureon 66-64-6396Smntzazj identified Cx Nom (U)ORGANISM: Klebsiella variicola (O:KLEVAR) [place] Count >100,000 Aerobic CORNELIA Charge (NMIC56) SUSCEPTIBILITY [...] RESISTANT TO ALL B-LACTAM DRUGS. PERFORMED BY: [facility] [address] [place] [address] PATHOLOGIST [employer]ASS[employer] FINISHER MATHIEU RASCON M.D.NormalAscension Sacred Heart Bay Physician GroupComment on above:Performed By: #### LIPID, A1C WTH eA, T4F, URMACRERAT, TSH3, CUU, CMP, ADDONUAPLUS, T3T ####[facility] [address] [place] [address] USAUrine appearanceOrdered By: Ayanna Vicente on 52-05-9503Imrndmqitu (U)ClearNormalClear The Jewish HospitalComment on above:Order Comment: Name Collection Type:: Clean-Voided MidstreamPerformed By: #### LIPID, A1C WTH eA, T4F, URMACRERAT, TSH3, CUU, CMP, ADDONUAPLUS, T3T #### [facility] [address] [place] [address] USAUrine cultureOrdered By: Ayanna Vicente on 05-06-2024 Bacteria identified Cx Nom (U)AbnormalThe Jewish HospitalUrine microalbumin/creatinine mass ratioOrdered By: Ayanna Vicente on 05-06-2024 Albumin/Creatinine DL <= 20 mg/L (U) [Mass ratio]17.2 mg/g0.0-30.0The Jewish HospitalComment on above:30-300 mg/g indicates an increased risk for diabetic nephropathy. Greater than 300 mg/g is consistent with clinical nephropathy. (Am. J. Kidney Disease 1995, 25:107)Albumin/Creatinine DL <= 20 mg/L (U) [Mass ratio]Urine microalbumin/creatinine mass ratio0.0-30.0The Jewish HospitalComment on above:30-300 mg/g indicates an increased risk for diabetic nephropathy. Greater than 300 mg/g is consistent with clinical nephropathy. (Am. J. Kidney Disease 1995, 25:107)Urobilinogen Test strip (U) [Mass/Vol]Ordered By: Ayanna Vicente on 29-57-9967Ixdgpclxilbx (U) [Mass/Vol] Normal mg/dLNormalAkron Children'S Hospital Medical CenterUrobilinogen (U) [Mass/Vol] Urobilinogen [Mass/volume] in Urine by Test stripNoSouthwest General Health CenterpH Test strip (U)Ordered By: Ayanna Vicente on 95-21-5154fW (U)pH of Urine by Test strip5.0-9.0The Jewish HospitalpH of Urine by Test stripOrdered By: Ayanna Vicente on 71-39-1525zH (U)5.5 [pH]Normal5.0-9.0The Jewish HospitalComment on above:Order Comment: Name Collection Type:: Clean-Voided MidstreamPerformed By: #### LIPID, A1C WTH eA, T4F, URMACRERAT, TSH3, CUU, CMP, ADDONUAPLUS, T3T #### [address]Ambulatory Visit Summaryon 38-35-4993Hluunlysdk Visit SummaryAmbulatory Visit Summary MARKUSROBERT FERRERRA Briggs :1940 Visit Date:02/24/2024 Ambulatory Visit Instructions Your [...] mos (no labs) Where: [address] [place] [address] [id number] Medications What How Much When Why Instructions [...] work or social activities (more content not included)...[facility] HospitalUrology Office/Clinic Noteon 68-93-6861Bkrdmxq Office/Clinic Note Urology Office/Clinic Note Chief Complaint [...] (N32.81: Overactive bladder) S/p Botox 100u 08/30/21. -[place] sxs only improved for a few weeks [...] for symptom improvement. If severe side effects occur,the medication should be stopped and the office [...] Contact Information JAX BECKMAN, SUSAN Miller, URL [address] [place] [address] [phone] Additional Instructions: 6 mos (no labs) Patient Education Overactive Bladder, Adult Documentation recorded by the donna Ospina accurately reflects the services(s) I performed anddecisions made by me. Authenticated by Susan Randolph [...] Cipro 500 mg Tab, (more content not included)...NormalOhio State East HospitalComment on above:Result Comment: Electronically Signed By: SUSAN RANDOLPH PA-C\.br\Date and Time Signed: 02/23/2410:53 EDT\.br\Electronically Co- Signed By: Sarah Ospina\.br\Date and Time Co-Signed: 02/24/24 10:44 EDT\.br\Electronically Co-Signed By: Sarah Ospina\.br\Date and Time Co-Signed: 02/24/24 10:47 EDTLaboratory - Chemistry and Chemistry - challengeon 02-04-2024 Bilirubin Ql (U)NegativeNEGCommunity Regional Medical CenterGlucose (U) [Mass/Vol]NegativeNEGCommunity Regional Medical CenterKetones Ql (U) NegativeNEGCommunity Regional Medical CenterpH (U)6.0 [pH]5.0-9.0[facility] Hospitalpecific gravity (U) [Rel density]>=1.030Abnormal 1.005-1.025The Jewish HospitalUrobilinogen Qn (U)0.2 {Jose'U}/dL0.2-1.0The Jewish HospitalLaboratory - Specimen informationon 45-10-1087Blqahftjks (U)CLEARCLEARFireWilson Memorial HospitalColor (U)YELLOWYELLOWThe Jewish HospitalLaboratory - Urinalysison 50-55-4618Pdzofmrvv esterase Test strip Ql (U)TRACEAbnormalNEGATIVE The Jewish HospitalMucus Ql (Urine sed)TRACEAbnormalNONE SEEN The Jewish HospitalNitrite Ql (U)NegativeNEGATIVEThe Jewish HospitalProtein Ql (U)TRACE mg/dLNEG/TRACEThe Jewish HospitalNo Panel Informationon 21-52-6037Dudsrqceqxshl Test CommentSee commentThe Jewish HospitalComment on above:Specimen Source: UCC - Urine,Clean Catch - Urine CC - 200.100Urine BacteriaTRACE #/HPFAbnormalNONE SEEN The Jewish HospitalUrine Occult BloodNegativeNEGATIVEThe Jewish HospitalUrine Other CastsNONE SEEN #/LPFNONE SEENThe Jewish HospitalUrine Other CrystalsNone Seen #/HPFNone [facility] Medical CenterUrine RBC0-2 #/HPF0-2FOhio State Health System Urine Squamous Epithelial CellsRARE #/LPFNONE/RAREThe Jewish HospitalUrine WBC2-5 #/HPFAbnormalNONE SEENThe Jewish HospitalUrine culture routineon 29-12-0859Iegvvizq identified Cx Nom (U)The Jewish HospitalAlanine aminotransferase [Enzymatic activity/volume] in Serum or PlasmaOrdered By: Ayanna Vicente on 17-81-1903JAY [Catalytic activity/Vol]28 U/L 7-52The Jewish HospitalAlbumin [Mass/volume] in Serum or Plasma by Bromocresol green (BCG) dye binding methoOrdered By: Ayanna Vicente on 10-17-2023 Albumin BCG dye [Mass/Vol]4.1 g/dL3.5-5.7FOhio State Health System Alkaline phosphatase [Enzymatic activity/volume] in Serum or PlasmaOrdered By: Ayanna Vicente on 62-27-1826VYZ [Catalytic activity/Vol]93 U/L93-927OjbioqdtpThe Jewish HospitalAnisocytosis LM Ql (Bld)Ordered By: Ayanna Vicente on 63-78-0195Nexqpuwcgwvi Ql (Bld)SlightThe Jewish HospitalAspartate aminotransferase [Enzymatic activity/volume] in Serum or PlasmaOrdered By: Ayanna Vicente on 05-23-7163XLJ [Catalytic activity/Vol]30 U/W66-12ZrwoqusyzThe Jewish HospitalAutomated erythrocytes count in urine sediment (number/area) Ordered By: Ayanna Vicente on 60-76-2260PMO Auto (Urine sed) [#/Area]1-2 [HPF]0-4 The Jewish HospitalAutomated leukocytes count in urine sediment (number/area)Ordered By: Ayanna Vicente on 43-47-7636UMK Auto (Urine sed) [#/Area] 10-19 [HPF]High0-4FOhio State Health SystemBasophils Auto (Bld) [#/Vol] Ordered By: Ayanna Vicente on 64-73-3562Jxsqxkihd (Bld) [#/Vol]N/[facility] HospitalBasophils/100 WBC Auto (Bld)Ordered By: Ayanna Vicente on 47-77-8813Syoxxnsxo/100 WBC (Bld)N/[facility] HospitalBilirubin Test strip Ql (U)Ordered By: Ayanna Vicente on 08-47-7188Koouytrud Ql (U)Negative NegativeThe Jewish HospitalBilirubin.total [Mass/volume] in Serum or PlasmaOrdered By: Ayanna Vicente on 69-38-2635Vswcyjfgk [Mass/Vol]0.4 mg/dL 0.3-1.0The Jewish HospitalCalcium [Mass/volume] in Serum or Plasma Ordered By: Ayanna Vicente on 15-03-8403Xpydyrz [Mass/Vol]9.7 mg/dL8.6-10.3 The Jewish HospitalCarbon dioxide, total [Moles/volume] in Serum or PlasmaOrdered By: Ayanna Vicente on 22-31-5851RV6 [Moles/Vol]30.9 mmol/L 21.0-31.0The Jewish HospitalChloride [Moles/volume] in Serum or PlasmaOrdered By: Ayanna Vicente on 24-74-4068Wiscmllc [Moles/Vol]105 mmol/L98-107 The [facility] HospitalCholesterol [Mass/volume] in Serum or Plasma Ordered By: Ayanna Vicente on 36-48-2035Lhsvniiqfuv [Mass/Vol]131 mg/iRJhx997-533 The Jewish HospitalComment on above:Chol less than 200 mg/dl low riskChol 201-239 mg/dl borderline riskChol 240 mg/dl and greater high risk Cholesterol in LDL Calc [Mass/Vol]Ordered By: Ayanna Vicente on 10-17-2023 Cholesterol in LDL [Mass/Vol]30 mg/dL0-100[facility] Comment on above:LDL ATP III CLASSIFICATIONLDL less than 100 mg/dL OptimalLDL 100-129 mg/dL Near or above jxoarxbGKT303-118 mg/dL Borderline highLDL 160-189 mg/dL HighLDL greater than 189 mg/dL Very highCholesterol in VLDL Calc [Mass/Vol]Ordered By: Ayanna Vicente on 00-08-6956Wtabpcvdfex in VLDL [Mass/Vol]60 mg/dLThe Jewish HospitalColor Auto (U)Ordered By: Ayanna Vicente on 71-36-0804Cykbo (U)YellowYellowThe Jewish HospitalCreatinine [Mass/volume] in Serum or PlasmaOrdered By: Ayanna Vicente on 06-91-0143Qdsnonrzad [Mass/Vol]1.15 mg/dL0.60-1.20The Jewish HospitalEosinophils Auto (Bld) [#/Vol]Ordered By: Ayanna Vicente on 16-23-1086Macjbhtpdow (Bld) [#/Vol]N/A The Jewish HospitalEosinophils/100 WBC Auto (Bld)Ordered By: Ayanna Vicente on 40-92-9322Yrxgnyjkicf/100 WBC (Bld)N/AFOhio State Health SystemEosinophils/100 WBC Manual cnt (Bld)Ordered By: Ayanna Vicente on 10-17-2023 Eosinophils/100 WBC (Bld)2 %1-3FOhio State Health SystemErythrocyte distribution width Auto (RBC) [Ratio]Ordered By: Ayanna Vicente on 10-17-2023 Erythrocyte distribution width (RBC) [Ratio]15.2 %11.9-15.3FOhio State Health SystemGlobulin Calc (S) [Mass/Vol]Ordered By: Ayanna Vicente on 10-17-2023 Globulin (S) [Mass/Vol]2.6 g/dLThe Jewish HospitalGlucose [Mass/volume] in Serum or PlasmaOrdered By: Ayanna Vicente on 56-86-7714Rdueujo [Mass/Vol]162 mg/bSNobl62-763WhyqjxmpgThe Jewish HospitalComment on above: ADA recommended reference rangeRandom Glucose Reference Range is dependent on time and content of last meal. Glucose of more than 200 mg/dL in a nonstressed, ambulatory subject supports the diagnosisof Diabetes Mellitus.Glucose mean value [Mass/volume] in Blood Estimated from glycated hemoglobinOrdered By: Ayanna Vicente on 61-75-5244Oggrwil glucose Estimated from glycated hemoglobin (Bld) [Mass/Vol]197 mg/dLThe Jewish HospitalHematocrit Auto (Bld) [Volume fraction]Ordered By: Ayanna Vicente on 06-17-6603Zndcugtzsy (Bld) [Volume fraction]38.8 %34.0-46.4FOhio State Health SystemHemoglobin A1c percentageOrdered By: Ayanna Vicente on 70-12-9839BtR4k (Bld) [Mass fraction]8.5 % High4.3-5.6FOhio State Health SystemComment on above:Increased risk for diabetes: 5.7 - 6.4diabetes: >6.4glycemic control for adults with diabetes: &l t;7.0Hemoglobin [Mass/volume] in BloodOrdered By: Ayanna Vicente on 10-17-2023 Hemoglobin (Bld) [Mass/Vol]12.2 g/dL11.8-15.4FOhio State Health System Ketones Auto test strip (U) [Mass/Vol]Ordered By: Ayanna Vicente on 10-17-2023 Ketones (U) [Mass/Vol]NegativeNegativeThe Jewish Hospital Laboratory - UrinalysisOrdered By: Ayanna Vicente on 22-07-2681Zvpvsdu casts LM Ql (Urine sed)None seen [LPF]0-8The Jewish HospitalLeukocytes [#/volume] corrected for nucleated erythrocytes in Blood by Automated coun Ordered By: Ayanna Vicente on 99-20-9712XAR corrected for nucl RBC Auto (Bld) [#/Vol]15.9 10*3/uLHigh3.8-11.6FOhio State Health SystemLymphocytes Auto (Bld) [#/Vol]Ordered By: Ayanna Vicente on 88-77-9922Pkcojnjoxwh (Bld) [#/Vol]N/A The Jewish HospitalLymphocytes/100 WBC Auto (Bld)Ordered By: Ayanna Vicente on 79-77-3101Zzcxzbuflhl/100 WBC (Bld)N/AFOhio State Health SystemLymphocytes/100 WBC Manual cnt (Bld)Ordered By: Ayanna Vicente on 10-17-2023 Lymphocytes/100 WBC (Bld)51 %Fpgk74-04FryxlzqvtThe Jewish HospitalMCH Auto (RBC) [Entitic mass]Ordered By: Ayanna Vicente on 36-51-2244OXC (RBC) [Entitic mass]28.0 pg24.7-34.3FCincinnati Shriners HospitalHC Auto (RBC) [Mass/Vol] Ordered By: Ayanna Vicente on 53-24-9052DEXE (RBC) [Mass/Vol]31.5 g/dLLow32.0-35.0 The [facility] HospitalMCV Auto (RBC) [Entitic vol]Ordered By: Ayanna Vicente on 68-12-7127CDW (RBC) [Entitic vol]89.0 mX69-945VcpweixpjThe Jewish HospitalMicroalbumin [Mass/volume] in UrineOrdered By: Ayanna Vicente on 05-04-1776Qbldsgy DL <= 20 mg/L (U) [Mass/Vol]1.9 mg/dLHigh0.0-1.8The [facility] HospitalMicrocytes LM Ql (Bld)Ordered By: Ayanna Vicente on 07-97-2484Ymyxahifob Ql (Bld)SlightThe Jewish HospitalMonocytes Auto (Bld) [#/Vol]Ordered By: Ayanna Vicente on 45-99-3668Kdrggkbvr (Bld) [#/Vol] N/[facility] HospitalMonocytes/100 WBC Auto (Bld)Ordered By: Ayanna Vicente on 43-70-5792Axuoonpgm/100 WBC (Bld)N/[facility] HospitalMonocytes/100 WBC Manual cnt (Bld)Ordered By: Ayanna Vicente on 10-17-2023 Monocytes/100 WBC (Bld)8 %2-11The Jewish HospitalMyelocytes/100 WBC Manual cnt (Bld)Ordered By: Ayanna Vicente on 70-32-8756Wtrrtqxlze/100 WBC (Bld)1 %High0-0The Jewish HospitalNeutrophils Auto (Bld) [#/Vol] Ordered By: Ayanna Vicente on 93-26-8483Awohxbwwdfr (Bld) [#/Vol]N/[facility] HospitalNeutrophils/100 WBC Auto (Bld)Ordered By: Ayanna Vicente on 90-38-8712Itjjkwvpkqw/100 WBC (Bld)N/[facility] HospitalNitrite Test strip Ql (U)Ordered By: Ayanna Vicente on 51-79-9120Zuqgqfv Ql (U)Positive HighNegativeThe Jewish HospitalNo Panel InformationOrdered By: Ayanna Vicente on 15-41-3753Vdgpdoaoa GFR (CKD-EPI)47.859 mL/MinThe Jewish HospitalPharmacy Creatinine Clearance (ChemN/[facility] HospitalNucleated erythrocytes [Presence] in Blood by Automated countOrdered By: Ayanna Vicente on 82-30-2290Bojnuzaam RBC Auto Ql (Bld)N/[facility] HospitalPlatelet adequacy [Presence] in Blood by Light microscopyOrdered By: Ayanna Vicente on 32-93-8490Kkyvvkzag LM Ql (Bld)NormalMedina HospitalPlatelet mean volume Auto (Bld) [Entitic vol]Ordered By: Ayanna Vicente on 59-07-9616Kedmjury mean volume (Bld) [Entitic vol]9.2 fL6.3-10.7 The [facility] HospitalPlatelet morphology finding [Identifier] in BloodOrdered By: Ayanna Vicente on 65-77-8795Iiqndjfd morphology finding Nom (Bld) NormalNoSouthwest General Health CenterPlatelets Auto (Bld) [#/Vol]Ordered By: Ayanna Vicente on 82-72-0123Vlaizansx (Bld) [#/Vol]231 10*3/bT803-083 The [facility] HospitalPoikilocytosis [Presence] in Blood by Light microscopyOrdered By: Ayanna Vicente on 06-95-6349Stzwovtjfyrsnt LM Ql (Bld)Slight The [facility] HospitalPotassium [Moles/volume] in Serum or Plasma Ordered By: Ayanna Vicente on 26-49-8589Uzcsdwwmp [Moles/Vol]5.1 mmol/L3.5-5.1 The [facility] HospitalProtein Auto test strip (U) [Mass/Vol]Ordered By: Ayanna Vicente on 70-22-4172Wxmhumr (U) [Mass/Vol]Trace mg/dLHighNegative The [facility] HospitalProtein [Mass/volume] in Serum or PlasmaOrdered By: yAanna Vicente on 32-39-8943Retbbgi [Mass/Vol]6.7 g/dL6.4-8.9The [facility] HospitalRBC Auto (Bld) [#/Vol]Ordered By: Ayanna Vicente on 74-38-9802UQP (Bld) [#/Vol]4.36 10*6/uL3.60-5.00The [facility] HospitalRBC morphologyOrdered By: Ayanna Vicente on 46-58-5004RLD morphology finding Nom (Bld)N/AFCincinnati VA Medical Centeregmented neutrophils/100 WBC Manual cnt (Bld)Ordered By: Ayanna Vicente on 87-01-5428Qnqlutusy neutrophils/100 WBC (Bld)33 %Gpy88-94XtsuxxmxmHighland District Hospitalerum or plasma albumin/globulin mass ratioOrdered By: Ayanna Vicente on 10-17-2023 Albumin/Globulin [Mass ratio]1.6 {ratio}[facility] District Hospitalerum or plasma anion gap determinationOrdered By: Ayanna Vicente on 74-59-4119Ztzpw gap [Moles/Vol]8.2 mmol/L6.0-15.0[facility] District Hospitalerum or plasma high density lipoprotein (HDL) cholesterol measurementOrdered By: Ayanna Vicente on 61-86-5542Yqqteqwzgxc in HDL [Mass/Vol]40 mg/jP16-37ObcmauzgvThe Jewish HospitalComment on above:HDL CHOL ATP-III CLASSIFICATION Cardiovascular RiskHDL > or equal to 60 mg/dL LOWHDL < 40 mg/dL HIGHSerum or plasma total cholesterol/high density lipoprotein (HDL) cholesterol mass ratOrdered By: Ayanna Vicente on 45-06-0993Zsinnschsjn.total/Cholesterol in HDL [Mass ratio]3.3 {ratio}<5.0[facility] District Hospitalodium [Moles/volume] in Serum or PlasmaOrdered By: Ayanna Vicente on 25-17-4183Hnwlsa [Moles/Vol]139 mmol/A466-853 [facility] Hospitalpecific gravity Auto test strip (U) [Rel density]Ordered By: Ayanna Vicente on 22-58-8622Gtxpghim gravity (U) [Rel density] 1.0181.001-1.030[facility] District Hospitalquamous epithelial cells detection in urine sediment by light microscopyOrdered By: Ayanna Vicente on 67-88-0499Zprwukosho cells.squamous LM Ql (Urine sed)0-1 [HPF]0-2FOhio State Health SystemThyrotropin [Units/volume] in Serum or PlasmaOrdered By: Ayanna Vicente on 80-97-6974VBT Qn1.46 m[IU]/L0.45-5.33The [facility] HospitalThyroxine (T4) free [Mass/volume] in Serum or PlasmaOrdered By: Ayanna Vicente on 00-54-4594Wjkc T4 [Mass/Vol]1.02 ng/dL0.61-1.12The [facility] HospitalTriglyceride [Mass/volume] in Serum or PlasmaOrdered By: Ayanna Vicente on 75-49-2184Zgmbisncwkyk [Mass/Vol]303 mg/dLHigh0-149The [facility] HospitalComment on above:TRIG ATP III CLASSIFICATIONTRIG less than 150 mg/dL NormalTRIG 150-199 mg/dL Borderline highTRIG 200-500 mg/dL High TRIG greater than 500 mg/dL Very highStandard traceable to the Center for Disease Co nrtrol and Prevention (CDC) test method.Triiodothyronine (T3) Free [Mass/volume] in Serum or PlasmaOrdered By: Ayanna Vicente on 00-69-1539Gnpt T3 [Mass/Vol]3.22 pg/mL2.50-3.90The [facility] HospitalUrea nitrogen [Mass/volume] in Serum or PlasmaOrdered By: Ayanna Vicente on 85-36-7381Posh nitrogen [Mass/Vol]30 mg/dLHigh7-25The [facility] HospitalUrine bacteria detection by automated methodOrdered By: Ayanna Vicente on 74-89-3464Rhqbyary Auto Ql (U)4+High None SeenThe Jewish HospitalUrine clarity by refractometry automatedOrdered By: Ayanna Vicente on 89-02-3450Wiavxzl Refractometry automated (U)ClearClearFOhio State Health SystemUrine culture routineOrdered By: Ayanna Vicente on 60-05-4467Zgosqxgi identified Cx Nom (U)Escherichia coli (MDRO) AbnormalThe Jewish HospitalUrine glucose measurement by automated test strip (mass/volume)Ordered By: Ayanna Vicente on 06-46-4820Aarqwqz Auto test strip (U) [Mass/Vol]Normal mg/dLNormSelect Medical OhioHealth Rehabilitation Hospital - DublinUrine hemoglobin detection by automated test stripOrdered By: Ayanna Vicente on 44-48-5842Wtqwdycwzv Auto test strip Ql (U)NegativeNegativeThe Jewish HospitalUrine leukocyte esterase detection by automated test stripOrdered By: Ayanna Vicente on 44-17-9259Usepdtbjq esterase Auto test strip Ql (U)2+High NegativeThe Jewish HospitalUrobilinogen Auto test strip (U) [Mass/Vol]Ordered By: Ayanna Vicente on 13-96-4560Strkjvxmvqlc (U) [Mass/Vol] Normal mg/dLNormSelect Medical OhioHealth Rehabilitation Hospital - DublinVariant lymphocytes/100 WBC Manual cnt (Bld)Ordered By: Ayanna Vicente on 20-44-0161Jhukcwf lymphocytes/100 WBC (Bld)6 %0-12The Jewish HospitalWBC Auto (Bld) [#/Vol]Ordered By: Ayanna Vicente on 13-64-7503KTF (Bld) [#/Vol]15.9 10*3/uLHigh3.8-11.6FOhio State Health SystempH Auto test strip (U)Ordered By: Ayanna Vicente on 99-58-9904uV (U)5.5 [pH]5.0-9.0The [facility] HospitalAlanine aminotransferase [Enzymatic activity/volume] in Serum or PlasmaOrdered By: Ayanna Vicente on 03-87-4700NQF [Catalytic activity/Vol]25 U/L7-52The [facility] HospitalAlbumin [Mass/volume] in Serum or Plasma by Bromocresol green (BCG) dye binding methoOrdered By: Ayanna Vicente on 39-73-3053Cwztril BCG dye [Mass/Vol]4.2 g/dL3.5-5.7FOhio State Health SystemAlkaline phosphatase [Enzymatic activity/volume] in Serum or PlasmaOrdered By: Ayanna Vicente on 48-03-9118MEL [Catalytic activity/Vol]95 U/N93-078UcrmhscmgThe Jewish HospitalAnisocytosis LM Ql (Bld)Ordered By: Ayanna Vicente on 46-73-3306Ectzmhgsbpfx Ql (Bld)SlightThe Jewish HospitalAspartate aminotransferase [Enzymatic activity/volume] in Serum or PlasmaOrdered By: Ayanna Vicente on 24-15-4982UUN [Catalytic activity/Vol]21 U/O68-25ObjeqipebThe Jewish HospitalBasophils Auto (Bld) [#/Vol]Ordered By: Ayanna Vicente on 04-09-2023 Basophils (Bld) [#/Vol]N/AFOhio State Health SystemBasophils/100 WBC Auto (Bld)Ordered By: Ayanna Vicente on 47-46-6474Zyvghwhka/100 WBC (Bld)N/A The [facility] HospitalBilirubin.total [Mass/volume] in Serum or PlasmaOrdered By: Ayanna Vicente on 18-67-2469Skkdxgchi [Mass/Vol]0.4 mg/dL0.3-1.0 [facility] HospitalCalcium [Mass/volume] in Serum or PlasmaOrdered By: Ayanna Vicente on 14-55-1926Ppybiku [Mass/Vol]9.9 mg/dL8.6-10.3FOhio State Health SystemCarbon dioxide, total [Moles/volume] in Serum or Plasma Ordered By: Ayanna Vicente on 72-62-4000WS9 [Moles/Vol]31.5 mmol/L21.0-31.0 [facility] HospitalChloride [Moles/volume] in Serum or Plasma Ordered By: Ayanna Vicente on 37-70-3279Gquqgzth [Moles/Vol]103 mmol/L98-107 [facility] HospitalCholesterol [Mass/volume] in Serum or Plasma Ordered By: Ayanna Vicente on 54-77-3027Pgbpgagdvdy [Mass/Vol]139 mg/qM929-669 [facility] HospitalComment on above:Chol less than 200 mg/dl low riskChol 201-239 mg/dl borderline riskChol 240 mg/dl and greater high risk Cholesterol in LDL Calc [Mass/Vol]Ordered By: Ayanna Vicente on 04-09-2023 Cholesterol in LDL [Mass/Vol]27 mg/dL0-100[facility] Comment on above:LDL ATP III CLASSIFICATIONLDL less than 100 mg/dL OptimalLDL 100-129 mg/dL Near or above qgggifeZQS155-903 mg/dL Borderline highLDL 160-189 mg/dL HighLDL greater than 189 mg/dL Very highCholesterol in VLDL Calc [Mass/Vol]Ordered By: Ayanna Vicente on 62-29-9866Qyovkfciiec in VLDL [Mass/Vol]69 mg/dLThe Jewish HospitalCreatinine [Mass/volume] in Serum or PlasmaOrdered By: Ayanna Vicente on 94-31-5991Jrdmfsoxvn [Mass/Vol]1.06 mg/dL 0.60-1.20The [facility] HospitalEosinophils Auto (Bld) [#/Vol]Ordered By: Ayanna Vicente on 12-66-1296Gzugpggwsix (Bld) [#/Vol]N/[facility] HospitalEosinophils/100 WBC Auto (Bld)Ordered By: Ayanna Vicente on 77-63-5542Yzovvrjxfoc/100 WBC (Bld)N/[facility] Eosinophils/100 WBC Manual cnt (Bld)Ordered By: Ayanna Vicente on 04-09-2023 Eosinophils/100 WBC (Bld)5 %1-3FOhio State Health SystemErythrocyte distribution width Auto (RBC) [Ratio]Ordered By: Ayanna Vicente on 04-09-2023 Erythrocyte distribution width (RBC) [Ratio]15.1 %11.9-15.3FOhio State Health SystemGlobulin Calc (S) [Mass/Vol]Ordered By: Ayanna Vicente on 04-09-2023 Globulin (S) [Mass/Vol]2.4 g/dLThe Jewish HospitalGlucose [Mass/volume] in Serum or PlasmaOrdered By: Ayanna Vicente on 71-35-1601Tljurrx [Mass/Vol]154 mg/lM44-252QqhpjgwsfThe Jewish HospitalComment on above:ADA recommended reference rangeRandom Glucose Reference Range is dependent on time and content of last meal. Glucose of more than 200 mg/dL in a nonstressed, ambulatory subject supports the diagnosisof Diabetes Mellitus.Glucose mean value [Mass/volume] in Blood Estimated from glycated hemoglobinOrdered By: Ayanna Vicente on 06-75-8504Lsautjo glucose Estimated from glycated hemoglobin (Bld) [Mass/Vol]200 mg/dLThe Jewish HospitalHematocrit Auto (Bld) [Volume fraction]Ordered By: Ayanna Vicente on 93-30-8529Hhmwxwmzmp (Bld) [Volume fraction]37.2 %34.0-46.4FOhio State Health SystemHemoglobin A1c percentageOrdered By: Ayanna Vicente on 73-45-9682QxX6g (Bld) [Mass fraction]8.6 % 4.3-5.6FOhio State Health SystemComment on above:Increased risk for diabetes: 5.7 - 6.4diabetes: >6.4glycemic control for adults with diabetes: &l t;7.0Hemoglobin [Mass/volume] in BloodOrdered By: Ayanna Vicente on 04-09-2023 Hemoglobin (Bld) [Mass/Vol]12.2 g/dL11.8-15.4FOhio State Health System Leukocytes [#/volume] corrected for nucleated erythrocytes in Blood by Automated counOrdered By: Ayanna Vicente on 04-71-1354PSF corrected for nucl RBC Auto (Bld) [#/Vol]15.3 10*3/uL3.8-11.6FOhio State Health SystemLymphocytes Auto (Bld) [#/Vol]Ordered By: Ayanna Vicente on 09-61-2098Hzqqlfqpxwk (Bld) [#/Vol]N/A [facility] HospitalLymphocytes/100 WBC Auto (Bld)Ordered By: Ayanna Vicente on 39-12-8165Qlsiujojtmt/100 WBC (Bld)N/AFOhio State Health SystemLymphocytes/100 WBC Manual cnt (Bld)Ordered By: Ayanna Vicente on 04-09-2023 Lymphocytes/100 WBC (Bld)59 %18-42The [facility] HospitalMCH Auto (RBC) [Entitic mass]Ordered By: Ayanna Vicente on 26-70-2602YRO (RBC) [Entitic mass]29.1 pg24.7-34.3FOhio State Health SystemMCHC Auto (RBC) [Mass/Vol] Ordered By: Ayanna Vicente on 38-99-4942YLLI (RBC) [Mass/Vol]32.9 g/dL32.0-35.0 [facility] HospitalMCV Auto (RBC) [Entitic vol]Ordered By: Ayanna Vicente on 66-24-4725MMG (RBC) [Entitic vol]88.5 lH37-588RqajcbajnThe Jewish HospitalMonocytes Auto (Bld) [#/Vol]Ordered By: Ayanna Vicente on 04-09-2023 Monocytes (Bld) [#/Vol]N/[facility] HospitalMonocytes/100 WBC Auto (Bld)Ordered By: Ayanna Vicente on 58-72-1564Vacstzcqp/100 WBC (Bld)N/A [facility] HospitalMonocytes/100 WBC Manual cnt (Bld)Ordered By: Ayanna Vicente on 95-88-6202Jtespfgod/100 WBC (Bld)7 %2-11The [facility] HospitalMyelocytes/100 WBC Manual cnt (Bld)Ordered By: Ayanna Vicente on 31-46-4392Yexepbewbo/100 WBC (Bld)1 %0-0[facility] Neutrophils Auto (Bld) [#/Vol]Ordered By: Ayanna Vicente on 94-27-7262Cecxjydviyv (Bld) [#/Vol]N/[facility] HospitalNeutrophils/100 WBC Auto (Bld) Ordered By: Ayanna Vicente on 81-88-7414Hedaptmkbnd/100 WBC (Bld)N/[facility] HospitalNo Panel InformationOrdered By: Ayanna Vicente on 20-21-7083Bytinqggj GFR (CKD-EPI)53.106 mL/MinThe [facility]acy Creatinine Clearance (ChemN/[facility] HospitalNucleated erythrocytes [Presence] in Blood by Automated countOrdered By: Ayanna Vicente on 51-35-4869Qenddvdwm RBC Auto Ql (Bld)/[facility] Ovalocyte detectionOrdered By: Ayanna Vicente on 17-50-0741Ifqtsljjfd LM Ql (Bld) SlightThe Jewish HospitalPlatelet adequacy [Presence] in Blood by Light microscopyOrdered By: Ayanna Vicente on 07-05-7829Bhuukunkg LM Ql (Bld) NormalNormalThe Jewish HospitalPlatelet mean volume Auto (Bld) [Entitic vol]Ordered By: Ayanna Vicente on 43-48-3809Jewsqtpa mean volume (Bld) [Entitic vol]9.5 fL6.3-10.7FOhio State Health SystemPlatelet morphology finding [Identifier] in BloodOrdered By: Ayanna Vicente on 03-06-5567Uivvzpya morphology finding Nom (Bld)NormalNormalThe [facility] Hospital Platelets Auto (Bld) [#/Vol]Ordered By: Ayanna Vicente on 52-61-6000Scskikmch (Bld) [#/Vol]211 10*3/mL802-678ChewqvnxcThe Jewish HospitalPotassium [Moles/volume] in Serum or PlasmaOrdered By: Ayanna Vicente on 46-41-4253Wykfsemgg [Moles/Vol]5.0 mmol/L3.5-5.1FOhio State Health SystemProtein [Mass/volume] in Serum or PlasmaOrdered By: Ayanna Vicente on 29-68-8640Robqbir [Mass/Vol]6.6 g/dL6.4-8.9The [facility] HospitalRBC Auto (Bld) [#/Vol] Ordered By: Ayanna Vicente on 71-82-8498VLI (Bld) [#/Vol]4.20 10*6/uL3.60-5.00 [facility] HospitalRBC morphologyOrdered By: Ayanna Vicente on 53-23-4459SBX morphology finding Nom (Bld)N/AFOhio State Health System Segmented neutrophils/100 WBC Manual cnt (Bld)Ordered By: Ayanna Vicente on 93-49-7829Bmzifvkon neutrophils/100 WBC (Bld)27 %50-70[facility] Hospitalerum or plasma albumin/globulin mass ratioOrdered By: Ayanna Vicente on 64-34-4455Njjycsl/Globulin [Mass ratio]1.8 {ratio}[facility] Hospitalerum or plasma anion gap determinationOrdered By: Ayanna Vicente on 77-37-4131Nuyfd gap [Moles/Vol]10.5 mmol/L6.0-15.0[facility] Hospitalerum or plasma high density lipoprotein (HDL) cholesterol measurement Ordered By: Ayanna Vicente on 46-34-4950Blmfxdanblf in HDL [Mass/Vol]42 mg/dL23-92 The [facility] HospitalComment on above:HDL CHOL ATP-III CLASSIFICATION Cardiovascular RiskHDL > or equal to 60 mg/dL LOWHDL < 40 mg/dL HIGHSerum or plasma total cholesterol/high density lipoprotein (HDL) cholesterol mass ratOrdered By: Ayanna Vicente on 96-79-5877Noeismrhgvw.total/Cholesterol in HDL [Mass ratio]3.3 {ratio}<5.0[facility] Hospitalodium [Moles/volume] in Serum or PlasmaOrdered By: Ayanna Vicente on 29-21-4507Iphwbc [Moles/Vol]140 mmol/G768-860FghligoyeThe Jewish HospitalThyrotropin [Units/volume] in Serum or PlasmaOrdered By: Ayanna Vicente on 10-07-9410QJB Qn 1.62 m[IU]/L0.45-5.33[facility] HospitalThyroxine (T4) free [Mass/volume] in Serum or PlasmaOrdered By: Ayanna Vicente on 72-75-4738Vrkg T4 [Mass/Vol]0.78 ng/dL0.61-1.12[facility] HospitalTriglyceride [Mass/volume] in Serum or PlasmaOrdered By: Ayanna Vicente on 04-09-2023 Triglyceride [Mass/Vol]349 mg/dL0-149The [facility] HospitalComment on above:TRIG ATP III CLASSIFICATIONTRIG less than 150 mg/dL NormalTRIG 150-199 mg/dL Borderline highTRIG 200-500 mg/dL High TRIG greater than 500 mg/dL Very highStandard traceable to the Center for Disease Conrtrol and Prevention (CDC) test method.Triiodothyronine (T3) Free [Mass/volume] in Serum or PlasmaOrdered By: Ayanna Vicente on 13-86-0989Ymow T3 [Mass/Vol]2.71 pg/mL2.50-3.90The [facility] HospitalUrea nitrogen [Mass/volume] in Serum or PlasmaOrdered By: Ayanna Vicente on 57-33-5386Blwf nitrogen [Mass/Vol]28 mg/dL7-25The [facility] HospitalVariant lymphocytes/100 WBC Manual cnt (Bld)Ordered By: Ayanna Vicente on 77-84-7186Mzflkyn lymphocytes/100 WBC (Bld)1 %0-12The [facility] HospitalWBC Auto (Bld) [#/Vol]Ordered By: Ayanna Vicente on 05-90-9093BSB (Bld) [#/Vol]15.3 10*3/uL3.8-11.6FOhio State Health System Alanine aminotransferase [Enzymatic activity/volume] in Serum or PlasmaOrdered By: Ayanna Vicente on 64-55-9944VTU [Catalytic activity/Vol]25 U/L7-52The [facility] HospitalAlbumin [Mass/volume] in Serum or Plasma by Bromocresol green (BCG) dye binding methoOrdered By: Ayanna Vicente on 88-00-8542Knlowgd BCG dye [Mass/Vol]4.3 g/dL3.5-5.7FOhio State Health SystemAlkaline phosphatase [Enzymatic activity/volume] in Serum or PlasmaOrdered By: Ayanna Vicente on 00-65-7561WYL [Catalytic activity/Vol]97 U/A54-921BmgbqwfphThe Jewish HospitalAnisocytosis LM Ql (Bld)Ordered By: Ayanna Vicente on 09-30-2022 Anisocytosis Ql (Bld)SlightThe Jewish HospitalAspartate aminotransferase [Enzymatic activity/volume] in Serum or PlasmaOrdered By: Ayanna Vicente on 95-55-9674ANH [Catalytic activity/Vol]22 U/H80-17SqqqldwmuThe Jewish HospitalBasophils Auto (Bld) [#/Vol]Ordered By: Ayanna Vicente on 09-30-2022 Basophils (Bld) [#/Vol]0.0 10*3/uL0.0-0.2FOhio State Health System Basophils/100 WBC Auto (Bld)Ordered By: Ayanna Vicente on 92-81-5562Hsshrrukx/100 WBC (Bld)0.3 %.The [facility] HospitalBilirubin.total [Mass/volume] in Serum or PlasmaOrdered By: Ayanna Vicente on 32-65-4297Pmqdwkgpi [Mass/Vol]0.3 mg/dL0.3-1.0[facility] HospitalCalcium [Mass/volume] in Serum or PlasmaOrdered By: Ayanna Vicente on 02-12-1837Obmrtzs [Mass/Vol]9.3 mg/dL8.6-10.3 [facility] HospitalCarbon dioxide, total [Moles/volume] in Serum or PlasmaOrdered By: Ayanna Vicente on 15-52-7433PI3 [Moles/Vol]30.4 mmol/L 21.0-31.0[facility] HospitalChloride [Moles/volume] in Serum or PlasmaOrdered By: Ayanna Vicente on 55-52-2720Mavpptyo [Moles/Vol]104 mmol/L98-107 [facility] HospitalCholesterol [Mass/volume] in Serum or Plasma Ordered By: Ayanna Vicente on 55-79-8403Swkxdmmntka [Mass/Vol]117 mg/xI343-270 [facility] HospitalComment on above:Chol less than 200 mg/dl low riskChol 201-239 mg/dl borderline riskChol 240 mg/dl and greater high risk Cholesterol in LDL Calc [Mass/Vol]Ordered By: Ayanna Vicente on 09-30-2022 Cholesterol in LDL [Mass/Vol]35 mg/dL0-100[facility] Comment on above:LDL ATP III CLASSIFICATIONLDL less than 100 mg/dL OptimalLDL 100-129 mg/dL Near or above hnjjargSUH535-764 mg/dL Borderline highLDL 160-189 mg/dL HighLDL greater than 189 mg/dL Very highCholesterol in VLDL Calc [Mass/Vol]Ordered By: Ayanna Vicente on 60-83-0704Brnplltmhgh in VLDL [Mass/Vol]43 mg/dLThe Jewish HospitalCreatinine [Mass/volume] in Serum or PlasmaOrdered By: Ayanna Vicente on 73-98-0362Ndcsoirupi [Mass/Vol]1.25 mg/dL 0.60-1.20[facility] HospitalEosinophils Auto (Bld) [#/Vol]Ordered By: Ayanna Vicente on 76-12-1887Rloonuuuulg (Bld) [#/Vol]0.3 10*3/uL0.0-0.45 [facility] HospitalEosinophils/100 WBC Auto (Bld)Ordered By: Ayanna Vicente on 48-43-1780Ocljyfxuawn/100 WBC (Bld)2.3 %.The [facility] HospitalErythrocyte distribution width Auto (RBC) [Ratio]Ordered By: Ayanna Vicente on 53-54-5582Kiefybzqcka distribution width (RBC) [Ratio]15.4 %11.9-15.3 [facility] HospitalGlobulin Calc (S) [Mass/Vol]Ordered By: Ayanna Vicente on 12-59-0865Grljzvuv (S) [Mass/Vol]2.4 g/dLThe Jewish HospitalGlucose [Mass/volume] in Serum or PlasmaOrdered By: Ayanna Vicente on 18-79-0110Hhmrmrf [Mass/Vol]135 mg/aJ36-634ObhwybuliThe [facility] Hospital Comment on above:ADA recommended reference rangeRandom Glucose Reference Range is dependent on time and content of last meal. Glucose of more than 200 mg/dL in a nonstressed, ambulatory subject supports the diagnosisof Diabetes Mellitus. Glucose mean value [Mass/volume] in Blood Estimated from glycated hemoglobin Ordered By: Ayanna Vicente on 44-00-6406Uidhtyp glucose Estimated from glycated hemoglobin (Bld) [Mass/Vol]203 mg/dLThe Jewish HospitalHematocrit Auto (Bld) [Volume fraction]Ordered By: Ayanna Vicente on 63-04-4893Wtgtsgyacn (Bld) [Volume fraction]37.0 %34.0-46.4FOhio State Health System Hemoglobin A1c percentageOrdered By: Ayanna Vicente on 07-20-3466NjB6b (Bld) [Mass fraction]8.7 %4.3-5.6FOhio State Health SystemComment on above: Increased risk for diabetes: 5.7 - 6.4diabetes: >6.4glycemic control for adults with diabetes: <7.0Hemoglobin [Mass/volume] in BloodOrdered By: Ayanna Vicente on 05-45-9865Czhkwndklj (Bld) [Mass/Vol]12.1 g/dL11.8-15.4FOhio State Health SystemLaboratory - Chemistry and Chemistry - challengeOrdered By: Ayanna Vicente on 39-67-7556SVG/1.73 sq M.predicted MDRD (S/P/Bld) [Vol rate/Area]43.572 mL/min/{1.73_m2}[facility] HospitalLeukocytes [#/volume] corrected for nucleated erythrocytes in Blood by Automated counOrdered By: Ayanna Vicente on 87-86-7705FAP corrected for nucl RBC Auto (Bld) [#/Vol]15.2 10*3/uL3.8-11.6 [facility] HospitalLymphocytes Auto (Bld) [#/Vol]Ordered By: Ayanna Vicente on 59-15-2520Emniwkijhbg (Bld) [#/Vol]10.5 10*3/uL1.00-4.8The [facility] HospitalLymphocytes/100 WBC Auto (Bld)Ordered By: Ayanna Vicente on 39-47-4710Biymtpsnqax/100 WBC (Bld)69.4 %.[facility] Auto (RBC) [Entitic mass]Ordered By: Ayanna Vicente on 84-10-8298RWG (RBC) [Entitic mass]28.4 pg24.7-34.3FCincinnati Shriners HospitalHC Auto (RBC) [Mass/Vol]Ordered By: Ayanna Vicente on 37-67-9874XSIL (RBC) [Mass/Vol]32.7 g/dL 32.0-35.0The [facility] HospitalMCV Auto (RBC) [Entitic vol]Ordered By: Ayanna Vicente on 37-20-4240BSX (RBC) [Entitic vol]86.9 kJ97-544GclhvwuepThe Jewish HospitalMicroalbumin [Mass/volume] in UrineOrdered By: Ayanna Vicente on 00-77-0582Hafaflk DL <= 20 mg/L (U) [Mass/Vol]1.9 mg/dL0.0-1.8 [facility] HospitalMonocytes Auto (Bld) [#/Vol]Ordered By: Ayanna Vicente on 41-53-7753Nmaoisiqu (Bld) [#/Vol]0.7 10*3/uL0.0-0.8The [facility] HospitalMonocytes/100 WBC Auto (Bld)Ordered By: Ayanna Vicente on 09-30-2022 Monocytes/100 WBC (Bld)4.5 %.The [facility] HospitalNeutrophils Auto (Bld) [#/Vol]Ordered By: Ayanna Vicente on 59-41-0142Nqupcevsgpb (Bld) [#/Vol]3.6 10*3/uL1.8-7.7FOhio State Health SystemNeutrophils/100 WBC Auto (Bld) Ordered By: Ayanna Vicente on 31-21-1848Gjneekfdtbb/100 WBC (Bld)23.5 %.[facility] HospitalNo Panel InformationOrdered By: Ayanna Vicente on 28-93-5723Kyymjaot Creatinine Clearance (ChemN/AFOhio State Health SystemNucleated erythrocytes [Presence] in Blood by Automated countOrdered By: Ayanna Vicente on 46-48-3856Ohakgfwhj RBC Auto Ql (Bld)0.6 /100{WBC}0-0.5FOhio State Health SystemOvalocyte detectionOrdered By: Ayanna Vicente on 45-46-3763Txitqpvgzd LM Ql (Bld)[facility] HospitalPlatelet adequacy [Presence] in Blood by Light microscopyOrdered By: Ayanna Vicente on 68-53-4976Eaqygqiun LM Ql (Bld)NormalNormSelect Medical [facility] Platelet mean volume Auto (Bld) [Entitic vol]Ordered By: Ayanna Vicente on 25-50-2694Lwtzuuhr mean volume (Bld) [Entitic vol]8.9 fL6.3-10.7FOhio State Health SystemPlatelet morphology finding [Identifier] in BloodOrdered By: Ayanna Vicente on 93-38-4261Qqlopyqg morphology finding Nom (Bld)NormalNormal [facility] HospitalPlatelets Auto (Bld) [#/Vol]Ordered By: Ayanna Vicente on 02-80-8163Ibljheuda (Bld) [#/Vol]230 10*3/wX657-943WkjxmdsjaThe Jewish HospitalPoikilocytosis [Presence] in Blood by Light microscopyOrdered By: Ayanna Vicente on 41-99-6259Klbijmmcyaypnk LM Ql (Bld)[facility] HospitalPotassium [Moles/volume] in Serum or PlasmaOrdered By: Ayanna Vicente on 90-60-7156Clljoeodn [Moles/Vol]4.5 mmol/L3.5-5.1FOhio State Health SystemProtein [Mass/volume] in Serum or PlasmaOrdered By: Ayanna Viecnte on 01-12-9760Fuvmhjp [Mass/Vol]6.7 g/dL6.4-8.9[facility] RBC Auto (Bld) [#/Vol]Ordered By: Ayanna Vicente on 86-94-0051BUV (Bld) [#/Vol] 4.26 10*6/uL3.60-5.00[facility] HospitalRBC morphologyOrdered By: Ayanna Vicente on 45-71-3332RQE morphology finding Nom (Bld)N/AFCincinnati VA Medical Centererum or plasma albumin/globulin mass ratioOrdered By: Ayanna Vicente on 71-68-6919Lrvgric/Globulin [Mass ratio]1.8 {ratio}[facility] Hospitalerum or plasma anion gap determinationOrdered By: Ayanna Vicente on 25-32-9545Aadfe gap [Moles/Vol]12.1 mmol/L6.0-15.0[facility] Hospitalerum or plasma high density lipoprotein (HDL) cholesterol measurement Ordered By: Ayanna Vicente on 59-97-0341Swvnikgbfrz in HDL [Mass/Vol]39 mg/dL35-85 The [facility] HospitalComment on above:HDL CHOL ATP-III CLASSIFICATION Cardiovascular RiskHDL > or equal to 60 mg/dL LOWHDL < 40 mg/dL HIGHSerum or plasma total cholesterol/high density lipoprotein (HDL) cholesterol mass ratOrdered By: Ayanna Vicente on 69-75-8531Ybyzbxcyaot.total/Cholesterol in HDL [Mass ratio]3.0 {ratio}<5.0[facility] Hospitalodium [Moles/volume] in Serum or PlasmaOrdered By: Ayanna Vicente on 00-49-6767Bkkjms [Moles/Vol]142 mmol/J611-279IkyyajdlfThe Jewish HospitalThyrotropin [Units/volume] in Serum or PlasmaOrdered By: Ayanna Vicente on 26-78-6950CFZ Qn 2.04 m[IU]/L0.45-5.33[facility] HospitalThyroxine (T4) free [Mass/volume] in Serum or PlasmaOrdered By: Ayanna Vicente on 62-27-5319Cvnh T4 [Mass/Vol]0.86 ng/dL0.61-1.12The [facility] HospitalTriglyceride [Mass/volume] in Serum or PlasmaOrdered By: Ayanna Vicente on 09-30-2022 Triglyceride [Mass/Vol]216 mg/dL0-149The [facility] HospitalComment on above:TRIG ATP III CLASSIFICATIONTRIG less than 150 mg/dL NormalTRIG 150-199 mg/dL Borderline highTRIG 200-500 mg/dL High TRIG greater than 500 mg/dL Very highStandard traceable to the Center for Disease Conrtrol and Prevention (CDC) test method.Triiodothyronine (T3) Free [Mass/volume] in Serum or PlasmaOrdered By: Ayanna Vicente on 84-70-3199Kfek T3 [Mass/Vol]3.13 pg/mL2.50-3.90The [facility] HospitalUrea nitrogen [Mass/volume] in Serum or PlasmaOrdered By: Ayanna Vicente on 19-19-2762Pbia nitrogen [Mass/Vol]33 mg/dL7-25The [facility] HospitalWBC Auto (Bld) [#/Vol]Ordered By: Ayanna Vicente on 04-44-0416ONF (Bld) [#/Vol]15.2 10*3/uL3.8-11.6FOhio State Health System No Panel InformationOrdered By: Ayanna Vicente on 370451-Fqatubl Vitamin D Total49.9 ng/yD40-040KdaknnybdThe Jewish HospitalComment on above:VITAMIN D STATUS 25(OH)VITAMIN D RANGE (ng/mL) Deficient <20 Insufficient 20 to <10Obqycqjvsy85 to 100Reference: Nile MF,Joon HOPKINS, Chon ROD, et al. Evaluation,treatment, and prevention of vitamin D deficiency; an Endocrine Society clinical practice guideline. JCEM. 2010; 96(7):1911-30.LD LACTATE DEHYDROon 61-04-6751AHX [Catalytic activity/Vol]202 U/L135 - 214 U/LCleveland ClinicAlbumin [Mass/volume] in Serum or PlasmaOrdered By: Ayanna Vicente on 62-72-1154Nkinkdw [Mass/Vol]3.5 g/dL3.2-5.5FOhio State Health System Basophils Auto (Bld) [#/Vol]Ordered By: Ayanna Vicente on 47-95-8289Dyxtovslj (Bld) [#/Vol]N/[facility] HospitalBasophils/100 WBC Auto (Bld) Ordered By: Ayanna Vicente on 07-29-7271Aqcateigh/100 WBC (Bld)N/[facility] HospitalBlood anisocytosis detectionOrdered By: Ayanna Vicente on 35-77-5324Adslyfacibzk Ql (Bld)SlightThe Jewish HospitalBlood hemoglobin measurement (mass/volume)Ordered By: Ayanna Vicente on 04-01-2022 Hemoglobin (Bld) [Mass/Vol]12.3 g/dL11.8-15.4FOhio State Health System Blood leukocytes automated count (number/volume)Ordered By: Ayanna Vicente on 89-05-3460KPB (Bld) [#/Vol]12.0 10*3/uL4.5-11.0[facility] Cerebrospinal fluid unidentified cells/100 leukocytesOrdered By: Ayanna Vicente on 32-30-9900Tjsjrysppwfe cells/100 WBC (CSF)2 %0-0The [facility] HospitalComment on above:PRO LYMPHOCYTECholesterol [Mass/volume] in Serum or PlasmaOrdered By: Ayanna Vicente on 17-64-5621Iwlgtwixsht [Mass/Vol]102 mg/dL 140-200The [facility] HospitalComment on above:Chol less than 200 mg/dl low risk Chol 201-239 mg/dl borderline risk Chol 240 mg/dl and greater high riskChol less than 200 mg/dl low riskChol 201- 239 mg/dl borderline riskChol 240 mg/dl and greater high riskCholesterol in LDL Calc [Mass/Vol]Ordered By: Ayanna Vicente on 19-26-7364Ccehbctkugw in LDL [Mass/Vol]27 mg/dL0-100The [facility] HospitalComment on above:LDL ATP III CLASSIFICATION LDL less than 100 mg/dL Optimal LDL 100-129 mg/dL Near or above optimal LDL 130-159 mg/dL Borderline high LDL 160-189 mg/dL High LDL greater than 189 mg/dL Very highLDL ATP III CLASSIFICATIONLDL less than 100 mg/dL OptimalLDL 100-129 mg/dL Near or above dvzdrilBLD778-563 mg/dL Borderline highLDL 160-189 mg/dL HighLDL greater than 189 mg/dL Very highCholesterol in VLDL Calc [Mass/Vol]Ordered By: Ayanna Vicente on 41-69-7858Cpghdbfassi in VLDL [Mass/Vol]25 mg/dLThe Jewish HospitalCreatinine and Glomerular filtration rate.predicted panel (S/P/Bld)Ordered By: Ayanna Vicente on 04-01-2022 Creatinine [Mass/Vol]0.84 mg/dL0.44-1.03[facility] Eosinophils Auto (Bld) [#/Vol]Ordered By: Ayanna Vicente on 84-68-0385Tocxvrjqczs (Bld) [#/Vol]N/[facility] HospitalEosinophils/100 WBC Auto (Bld) Ordered By: Ayanna Vicente on 49-40-9572Wqzhdngjhdt/100 WBC (Bld)N/[facility] HospitalErythrocyte distribution width Auto (RBC) [Ratio]Ordered By: Ayanna Vicente on 89-64-6671Ykstpeiosvf distribution width (RBC) [Ratio]17.0 % 11.9-15.3FOhio State Health SystemEstimated glomerular filtration rate (GFR) non- AmericanOrdered By: Ayanna Vicente on 68-91-6187OOP/1.73 sq M.predicted among non-blacks MDRD (S/P/Bld) [Vol rate/Area]> 60 mL/MinThe Jewish HospitalGlobulin Calc (S) [Mass/Vol]Ordered By: Ayanna Vicente on 74-54-9281Wkgmzmfa (S) [Mass/Vol]2.9 g/dLThe Jewish Hospital Glucose mean value [Mass/volume] in Blood Estimated from glycated hemoglobin Ordered By: Ayanna Vicente on [id number] glucose Estimated from glycated hemoglobin (Bld) [Mass/Vol]255 mg/dLThe Jewish HospitalHematocrit Auto (Bld) [Volume fraction]Ordered By: Ayanna Vicente on [id number] (Bld) [Volume fraction]37.9 %34.0-46.4FOhio State Health System Hemoglobin A1c percentageOrdered By: Ayanna Vicente on 07-15-5429OgE5s (Bld) [Mass fraction]10.5 %4.3-5.6FOhio State Health SystemComment on above: Increased risk for diabetes: 5.7 - 6.4 diabetes: >6.4 glycemic control for adults with diabetes: <7.0Increased risk for diabetes: 5.7 - 6.4diabetes: >6.4glycemic control for adults with diabetes: <7.0Laboratory - Hematology and Cell countsOrdered By: Ayanna Vicente on 69-44-0323Rcuehyexr RBC/100 WBC (Bld) [Ratio]0.2 %0-0.5FOhio State Health SystemLymphocytes Auto (Bld) [#/Vol]Ordered By: Ayanna Vicente on 13-37-6065Tocryaywnmp (Bld) [#/Vol]N/[facility] HospitalLymphocytes/100 WBC Auto (Bld)Ordered By: Ayanna Vicente on 02-58-0544Ybvvgoeybod/100 WBC (Bld)N/[facility] HospitalLymphocytes/100 WBC (Bld)60 %18-42The [facility] HospitalLymphocytes/100 WBC Manual cnt (Bld)Ordered By: Ayanna Vicente on 04-01-2022 Lymphocytes/100 WBC (Bld)3 %0-12[facility] Auto (RBC) [Entitic mass]Ordered By: Ayanna Vicente on 27-63-2455OFC (RBC) [Entitic mass]28.3 pg24.7-34.3FCincinnati Shriners HospitalHC Auto (RBC) [Mass/Vol]Ordered By: Ayanna Vicente on 37-77-6975FWOW (RBC) [Mass/Vol]32.4 g/dL32.0-35.0The [facility] HospitalMCV Auto (RBC) [Entitic vol]Ordered By: Ayanna Vicente on 40-61-7379HAC (RBC) [Entitic vol]87.6 wO05-118XtkpgfmovThe Jewish Hospital Manual blood monocytes/100 leukocytesOrdered By: Ayanna Vicente on 04-01-2022 Monocytes/100 WBC (Bld)3 %1-3FOhio State Health SystemMonocytes Auto (Bld) [#/Vol]Ordered By: Ayanna Vicente on 08-98-2948Ifhuounvr (Bld) [#/Vol]N/A [facility] HospitalMonocytes/100 WBC Auto (Bld)Ordered By: Ayanna Vicente on 51-88-0137Kklltqnfr/100 WBC (Bld)N/[facility] Neutrophils Auto (Bld) [#/Vol]Ordered By: Ayanna Vicente on 64-25-3750Wdqddbvstpa (Bld) [#/Vol]N/[facility] HospitalNeutrophils/100 WBC Auto (Bld) Ordered By: Ayanna Vicente on 00-78-0384Hewinentxur/100 WBC (Bld)N/[facility] HospitalNo Panel InformationOrdered By: Ayanna Vicente on 75-45-3166Wpxtssqbt GFR ()> 60 mL/MinThe Jewish HospitalComment on above:GFR estimated reference range: According to KDOQI guidelines, <60 ml/min/1.73m2 is sufficient todiagnose a patient with chronic kidney disease.Pharmacy Creatinine Clearance (ChemN/[facility] HospitalPlatelet EstimateNormalNoSouthwest General Health CenterPlatelet Morphology CommentNormParma Community General Hospitalmudge CellsFew The [facility] HospitalPlatelet mean volume Auto (Bld) [Entitic vol] Ordered By: Ayanna Vicente on 07-60-1241Orczsluc mean volume (Bld) [Entitic vol] 9.3 fL6.3-10.7FOhio State Health SystemPlatelets Auto (Bld) [#/Vol] Ordered By: Ayanna Vicente on 44-91-3844Qqygtsyxf (Bld) [#/Vol]224 10*3/eU354-838 [facility] HospitalProtein [Mass/volume] in Serum or PlasmaOrdered By: Ayanna Vicente on 96-08-5379Jhjrloh [Mass/Vol]6.4 g/dL6.1-7.9The [facility] HospitalRBC Auto (Bld) [#/Vol]Ordered By: Ayanna Vicente on 32-80-6617SXJ (Bld) [#/Vol]4.33 10*6/uL3.60-5.00The [facility] HospitalRBC morphologyOrdered By: Ayanna Vicente on 63-91-9989YZP morphology finding Nom (Bld)N/AFCincinnati VA Medical Centeregmented neutrophils/100 WBC Manual cnt (Bld)Ordered By: Ayanna Vicente on 48-39-0591Kqnlyirvk neutrophils/100 WBC (Bld)29 %50-70[facility] Hospitalerum or plasma alanine aminotransferase measurement without P-5'-P (enzymatic activiOrdered By: Ayanna Vicente on 52-70-7000WRJ No additional P-5'-P [Catalytic activity/Vol]24 U/L10-60 [facility] Hospitalerum or plasma albumin/globulin mass ratio Ordered By: Ayanna Vicente on 21-30-8193Kzbkacy/Globulin [Mass ratio]1.2 {ratio} [facility] Hospitalerum or plasma alkaline phosphatase measurement (enzymatic activity/volume)Ordered By: Ayanna Vicente on 99-40-5720VPP [Catalytic activity/Vol]75 U/A47-70ZlscmlvkjHighland District Hospitalerum or plasma anion gap determinationOrdered By: Ayanna Vicente on 88-81-6551Lfzds gap [Moles/Vol]15.8 mmol/L6.0-15.0[facility] Hospitalerum or plasma aspartate aminotransferase measurement (enzymatic activity/volume)Ordered By: Ayanna Vicente on 88-58-1776HJN [Catalytic activity/Vol]26 U/U02-89IrwxnfyboHighland District Hospitalerum or plasma calcium measurement (mass/volume)Ordered By: Ayanna Vicente on 62-92-4706Dlhrpaq [Mass/Vol]9.3 mg/dL8.2-10.2FCincinnati VA Medical Centererum or plasma chloride measurement (moles/volume) Ordered By: Ayanna Vicente on 89-92-7273Cuygbset [Moles/Vol]103 mmol/L95-114 [facility] Hospitalerum or plasma glucose measurement (mass/volume)Ordered By: Ayanna Vicente on 09-57-4402Vazixkq [Mass/Vol]163 mg/dL 70-100The [facility] HospitalComment on above:ADA recommended reference range Random Glucose Reference Range is dependent on time and content of last meal. Glucose of more than 200 mg/dL in a nonstressed, ambulatory subject supports the diagnosis of Diabetes Mellitus.ADA recommended reference rangeRandom Glucose Reference Range is dependent on time and content of last meal. Glucose of more than 200 mg/dL in a nonstressed, ambulatory subject supports the diagnosisof Diabetes Mellitus.Serum or plasma high density lipoprotein (HDL) cholesterol measurementOrdered By: Ayanna Vicente on 81-05-6497Mguxkazialc in HDL [Mass/Vol]50 mg/yJ52-66EkcqgviqsThe Jewish HospitalComment on above:HDL CHOL ATP-III CLASSIFICATION Cardiovascular Risk HDL > or equal to 60 mg/dL LOW HDL < 40 mg/dL HIGHHDL CHOL ATP-III CLASSIFICATION Cardiovascular RiskHDL > or equal to 60 mg/dL LOWHDL < 40 mg/dL HIGHSerum or plasma potassium measurement (moles/volume)Ordered By: Ayanna Vicente on 71-37-0293Lsfhahtsv [Moles/Vol]4.4 mmol/L3.5-5.1FCincinnati VA Medical Centererum or plasma sodium measurement (moles/volume)Ordered By: Ayanna Vicente on 67-05-4621Rmtlkg [Moles/Vol]141 mmol/Q857-148LufnrchjkHighland District Hospitalerum or plasma total bilirubin measurement (mass/volume)Ordered By: Ayanna Vicente on 30-83-5097Ovpzeyrbz [Mass/Vol]0.3 mg/dL0.3-1.2FCincinnati VA Medical Centererum or plasma total carbon dioxide measurement (moles/volume)Ordered By: Ayanna Vicente on 04-01-2022 CO2 [Moles/Vol]26.6 mmol/L22.0-30.0[facility] Hospitalerum or plasma total cholesterol/high density lipoprotein (HDL) cholesterol mass rat Ordered By: Ayanna Vicente on 52-50-8321Jbsirjvlhpi.total/Cholesterol in HDL [Mass ratio]2.0 {ratio}<5.0[facility] Hospitalerum or plasma urea nitrogen measurement (mass/volume)Ordered By: Ayanna Vicente on 10-31-2575Zsvh nitrogen [Mass/Vol]12 mg/dL9-23The [facility] HospitalTSH DL <= 0.005 mIU/L QnOrdered By: Ayanna Vicente on 24-06-7935KMG Qn1.11 m[IU]/L0.45-5.33 [facility] HospitalThyroxine (T4) free [Mass/volume] in Serum or PlasmaOrdered By: Ayanna Vicente on 79-59-3017Dskv T4 [Mass/Vol]1.02 ng/dL 0.61-1.12The [facility] HospitalTriglyceride [Mass/volume] in Serum or PlasmaOrdered By: Ayanna Vicente on 50-53-6556Nslybrptjprc [Mass/Vol]125 mg/dL 35-149The [facility] HospitalComment on above:TRIG ATP III CLASSIFICATION TRIG less than 150 mg/dL Normal TRIG 150-199 mg/dL Borderline high TRIG 200-500 mg/dL High TRIG greater than 500 mg/dL Very high Standard traceable to the Center for Disease Conrtrol and Prevention (CDC) test method.TRIG ATP III CLASSIFICATIONTRIG less than 150 mg/dL NormalTRIG 150-199 mg/dL Borderline highTRIG 200-500 mg/dL High TRIG greater than 500 mg/dL Very highStandard traceable to the Center for Disease Conrtrol and Prevention (CDC) test method.Triiodothyronine (T3) Free [Mass/volume] in Serum or PlasmaOrdered By: Ayanna Vicente on 92-11-6994Orts T3 [Mass/Vol]2.81 pg/mL2.50-3.90The [facility] HospitalGlucose Glucometer (BldC) [Mass/Vol]Ordered By: Galo Max on 80-97-8368Npgqvpy [Mass/Vol]117 mg/dLThe [facility] Hospital Comment on above:Random Glucose Reference Range is dependent on time and content of last meal. Glucose of more than 200 mg/dL in a nonstressed, ambulatory subject supports the diagnosis of Diabetes Mellitus.Basophils Auto (Bld) [#/Vol] Ordered By: Ashley Ramos on 44-96-1359Urfywqlcd (Bld) [#/Vol]0.0 10*3/uL 0.0-0.2FOhio State Health SystemBasophils/100 WBC Auto (Bld)Ordered By: Ashley Ramos on 51-24-1083Ukzloqbki/100 WBC (Bld)0.3 %.[facility] HospitalBlood hemoglobin measurement (mass/volume)Ordered By: Ashley Ramos on 45-86-3331Lwpqusngto (Bld) [Mass/Vol]11.0 g/dL11.8-15.4FOhio State Health SystemBlood leukocytes automated count (number/volume)Ordered By: Ashley Ramos on 93-25-3195XJZ (Bld) [#/Vol]9.5 10*3/uL4.5-11.0[facility] HospitalCreatinine and Glomerular filtration rate.predicted panel (S/P/Bld)Ordered By: Ashley Ramos on 49-61-3860Ixvjvjmnzo [Mass/Vol]0.78 mg/dL0.44-1.03The [facility] HospitalEosinophils Auto (Bld) [#/Vol] Ordered By: Ashley Ramos on 58-83-9726Ncdfcactsrl (Bld) [#/Vol]0.3 10*3/uL 0.0-0.45The [facility] HospitalEosinophils/100 WBC Auto (Bld)Ordered By: Ashley Ramos on 53-96-5297Hxnlghudygc/100 WBC (Bld)3.6 %.[facility] HospitalErythrocyte distribution width Auto (RBC) [Ratio]Ordered By: Ashley Ramos on 25-04-1638Ajrbimdcjja distribution width (RBC) [Ratio] 15.4 %11.9-15.3FOhio State Health SystemEstimated glomerular filtration rate (GFR) non- AmericanOrdered By: Ashley Ramos on 01-25-2022 GFR/1.73 sq M.predicted among non-blacks MDRD (S/P/Bld) [Vol rate/Area]> 60 mL/MinThe Jewish HospitalHematocrit Auto (Bld) [Volume fraction] Ordered By: Ashley Ramos on 68-20-0295Nuzfncjoko (Bld) [Volume fraction]33.2 %34.0-46.4FOhio State Health SystemLaboratory - Hematology and Cell countsOrdered By: Ashley Ramos on 79-73-6259Lcsbfjiab RBC/100 WBC (Bld) [Ratio]0.2 %0-0.5FOhio State Health SystemLymphocytes Auto (Bld) [#/Vol] Ordered By: Ashley Ramos on 25-97-2342Exnbqijbgdz (Bld) [#/Vol]6.4 10*3/uL 1.00-4.8The [facility] HospitalLymphocytes/100 WBC Auto (Bld)Ordered By: Ashley Ramos on 62-56-9929Lpqmayzavzc/100 WBC (Bld)67.6 %.[facility] CenterH Auto (RBC) [Entitic mass]Ordered By: Ashley Ramos on 83-97-5894AEV (RBC) [Entitic mass]28.7 pg24.7-34.3FOhio State Health SystemMCHC Auto (RBC) [Mass/Vol]Ordered By: Ashley Ramos on 18-32-6020RPVL (RBC) [Mass/Vol]33.3 g/dL32.0-35.0[facility] HospitalMCV Auto (RBC) [Entitic vol]Ordered By: Ashley Ramos on 60-99-6263WNE (RBC) [Entitic vol]86.3 uK72-565XtghcytxfThe Jewish HospitalMonocytes Auto (Bld) [#/Vol] Ordered By: Ashley Ramos on 64-60-6679Uggxkdjkd (Bld) [#/Vol]0.7 10*3/uL 0.0-0.8The [facility] HospitalMonocytes/100 WBC Auto (Bld)Ordered By: Ashley Ramos on 80-80-7236Eawpadgan/100 WBC (Bld)7.4 %.The [facility] HospitalNeutrophils Auto (Bld) [#/Vol]Ordered By: Ashley Ramos on 81-95-5148Vdfhvxlrizi (Bld) [#/Vol]2.0 10*3/uL1.8-7.7FOhio State Health SystemNeutrophils/100 WBC Auto (Bld)Ordered By: Ashley Ramos on 01-25-2022 Neutrophils/100 WBC (Bld)21.1 %.[facility] HospitalNo Panel InformationOrdered By: Ashley Ramos on 95-36-3959Abvliyvml GFR ()> 60 mL/MinThe Jewish HospitalComment on above:GFR estimated reference range: According to KDOQI guidelines, <60 ml/min/1.73m2 is sufficient todiagnose a patient with chronic kidney disease.Pharmacy Creatinine Clearance (Chem76.46The [facility] HospitalPlatelet EstimateNormal NormalThe Jewish HospitalPlatelet Morphology CommentNormalNormal [facility] Hospitalmudge CellsFewThe Jewish HospitalPlatelet mean volume Auto (Bld) [Entitic vol]Ordered By: Ashley Ramos on 14-66-7745Pxieuzzs mean volume (Bld) [Entitic vol]8.6 fL6.3-10.7FOhio State Health SystemPlatelets Auto (Bld) [#/Vol]Ordered By: Ashley Ramos on 36-70-8644Miiswnlpa (Bld) [#/Vol]240 10*3/eL404-389AdckgvvlmThe Jewish HospitalRBC Auto (Bld) [#/Vol]Ordered By: Ashley Ramos on 94-46-8672UBF (Bld) [#/Vol]3.84 10*6/uL3.60-5.00[facility] HospitalRB morphology Ordered By: Ashley Ramos on 60-39-8918LFL morphology finding Nom (Bld)Normal [facility] Hospitalerum or plasma calcium measurement (mass/volume)Ordered By: Ashley Ramos on 64-60-8760Dvjxmhp [Mass/Vol]8.7 mg/dL8.2-10.2FCincinnati VA Medical Centererum or plasma chloride measurement (moles/volume)Ordered By: Ashley Ramos on 84-92-9596Zkkjdmgp [Moles/Vol]101 mmol/W84-392PjwalttatHighland District Hospitalerum or plasma glucose measurement (mass/volume)Ordered By: Ashley Ramos on 01-25-2022 Glucose [Mass/Vol]133 mg/vH66-080NbwkjtmuiThe Jewish HospitalComment on above:ADA recommended reference range Random Glucose Reference Range is dependent on time and content of last meal. Glucose of more than 200 mg/dL in a nonstressed, ambulatory subject supports the diagnosis of Diabetes Mellitus.ADA recommended reference rangeRandom Glucose Reference Range is dependent on time and content of last meal. Glucose of more than 200 mg/dL in a nonstressed, ambulatory subject supports the diagnosisof Diabetes Mellitus.Serum or plasma potassium measurement (moles/volume)Ordered By: Ashley Ramos on 42-73-7057Sgybudjry [Moles/Vol]4.0 mmol/L3.5-5.1 [facility] Hospitalerum or plasma sodium measurement (moles/volume)Ordered By: Ashley Ramos on 67-92-2939Fzxyxi [Moles/Vol]141 mmol/M267-509QvasyhgmcHighland District Hospitalerum or plasma total carbon dioxide measurement (moles/volume)Ordered By: Ashley Ramos on 71-81-0137HI2 [Moles/Vol]30.7 mmol/L22.0-30.0[facility] Hospitalerum or plasma urea nitrogen measurement (mass/volume)Ordered By: Ashley Ramos on 57-83-3764Cgyt nitrogen [Mass/Vol]14 mg/dL9-23[facility] No Panel InformationOrdered By: Galo Max on 95-28-2187Dtxdsar Glucose CommentGlu2: cleaned meterThe Jewish HospitalBacterial blood cultureOrdered By: Butch Redding on 22-35-9500Camrnrqr identified Cx Nom (Bld)NO GROWTH 5 DAYSThe Jewish HospitalAlbumin [Mass/volume] in Serum or PlasmaOrdered By: Galo Max on 97-59-0245Pngenfo [Mass/Vol]3.1 g/dL3.2-5.5 [facility] HospitalBlood acanthocytes detection by light microscopyOrdered By: Galo Max on 90-71-8721Gnshxisajcok LM Ql (Bld)Rare [facility] HospitalGlobulin Calc (S) [Mass/Vol]Ordered By: Galo Max on 21-83-3456Qjbifugg (S) [Mass/Vol]3.0 g/dLThe Jewish HospitalNo Panel InformationOrdered By: Galo Max on 72-54-6506ASG CommentSee commentThe Jewish HospitalComment on above:Slide referred to pathologist for reviewProtein [Mass/volume] in Serum or PlasmaOrdered By: Galo Max on 70-02-4678Bblsqnm [Mass/Vol]6.1 g/dL6.1-7.9[facility] Hospitalerum or plasma alanine aminotransferase measurement without P-5'-P (enzymatic activiOrdered By: Galo Max on 39-95-3766AYB No additional P-5'-P [Catalytic activity/Vol]24 U/F15-81IthbwugfzHighland District Hospitalerum or plasma albumin/globulin mass ratioOrdered By: Galo Max on 01-16-2022 Albumin/Globulin [Mass ratio]1.0 {ratio}[facility] Hospitalerum or plasma alkaline phosphatase measurement (enzymatic activity/volume)Ordered By: Galo Max on 04-55-5817JHW [Catalytic activity/Vol]88 U/A10-92RlehexrvxHighland District Hospitalerum or plasma aspartate aminotransferase measurement (enzymatic activity/volume)Ordered By: Galo Max on 83-26-5294LNO [Catalytic activity/Vol]23 U/V77-21PyrafdvphHighland District Hospitalerum or plasma prealbumin measurement (mass/volume)Ordered By: Galo Max on 01-16-2022 Prealbumin [Mass/Vol]22.1 mg/dL18.0-38.0[facility] Hospitalerum or plasma total bilirubin measurement (mass/volume)Ordered By: Galo Max on 30-35-5291Gunqtrvak [Mass/Vol]0.6 mg/dL0.3-1.2FOhio State Health System Creatinine and Glomerular filtration rate.predicted panel (S/P/Bld)Ordered By: Bertram Garrison on 34-09-9642Cbeujiatln [Mass/Vol]0.80 mg/dL0.44-1.03The [facility] HospitalComment on above:Delta: 1.35 on 01/14/2254Estimated glomerular filtration rate (GFR) non- AmericanOrdered By: Bertram Garrison on 37-90-0969ZNH/1.73 sq M.predicted among non-blacks MDRD (S/P/Bld) [Vol rate/Area]> 60 mL/MinThe Jewish HospitalGlucose Glucometer (BldC) [Mass/Vol]Ordered By: Bertram Garrison on 42-92-2125Qamfnts [Mass/Vol]226 mg/dL The [facility] HospitalComment on above:Random Glucose Reference Range is dependent on time and content of last meal. Glucose of more than 200 mg/dL in a nonstressed, ambulatory subject supports the diagnosis of Diabetes Mellitus.No Panel InformationOrdered By: Bertram Garrison on 84-73-7538Uaqvujc Glucose CommentGlu2: cleaned meterThe Jewish HospitalEstimated GFR ()> 60 mL/MinThe Jewish HospitalComment on above: GFR estimated reference range: According to KDOQI guidelines, <60 ml/min/1.73m2 is sufficient todiagnose a patient with chronic kidney disease.Pharmacy Creatinine Clearance (Chem75.85[facility] Hospitalerum or plasma calcium measurement (mass/volume)Ordered By: Bertram Garrison on 35-64-3498Dpkhngc [Mass/Vol]9.2 mg/dL8.2-10.2FCincinnati VA Medical Centererum or plasma chloride measurement (moles/volume)Ordered By: Bertram Garrison on 01-15-2022 Chloride [Moles/Vol]99 mmol/U13-509TcmzceqtvHighland District Hospitalerum or plasma glucose measurement (mass/volume)Ordered By: Bertram Garrison on 01-15-2022 Glucose [Mass/Vol]293 mg/sD85-850UmhkcjekaThe Jewish HospitalComment on above:ADA recommended reference range Random Glucose Reference Range is dependent on time and content of last meal. Glucose of more than 200 mg/dL in a nonstressed, ambulatory subject supports the diagnosis of Diabetes Mellitus.Serum or plasma potassium measurement (moles/volume)Ordered By: Bertram Garrison on 25-11-6418Ylvcgedbz [Moles/Vol]4.3 mmol/L3.5-5.1FCincinnati VA Medical Centererum or plasma sodium measurement (moles/volume)Ordered By: Bertram Garrison on 42-53-1812Lfbbpf [Moles/Vol]136 mmol/D170-380WazkanirdHighland District Hospitalerum or plasma total carbon dioxide measurement (moles/volume)Ordered By: Bertram Garrison on 07-84-8241GC3 [Moles/Vol]29.1 mmol/L22.0-30.0[facility] Hospitalerum or plasma urea nitrogen measurement (mass/volume)Ordered By: Bertram Garrison on 01-15-2022 Urea nitrogen [Mass/Vol]23 mg/dL9-23The [facility] HospitalUrine culture routineOrdered By: Butch Redding on 00-40-0008Iduncpbt identified Cx Nom (U)Enterococcus faecalisThe Jewish HospitalBasophils Auto (Bld) [#/Vol]Ordered By: Bertram Garrison on 56-78-1961Firlvdvwe (Bld) [#/Vol]0.1 10*3/uL 0.0-0.2FOhio State Health SystemBasophils/100 WBC Auto (Bld)Ordered By: Bertram Garrison on 81-86-1712Fmzplvegh/100 WBC (Bld)0.6 %.[facility] HospitalBlood acanthocytes detection by light microscopyOrdered By: Bertram Garrison on 53-50-1440Vlyzwezcqmuz LM Ql (Bld)FewThe Jewish HospitalBlood hemoglobin measurement (mass/volume)Ordered By: eBrtram Garrison on 84-39-0694Bkszrstzav (Bld) [Mass/Vol]11.7 g/dL11.8-15.4FOhio State Health SystemBlood leukocytes automated count (number/volume)Ordered By: Bertram Garrison on 12-56-7081WVT (Bld) [#/Vol]11.5 10*3/uL4.5-11.0[facility] HospitalEosinophils Auto (Bld) [#/Vol]Ordered By: Bertram Garrison on 19-76-9735Lmgtwwwagfn (Bld) [#/Vol]0.4 10*3/uL0.0-0.45The [facility] HospitalEosinophils/100 WBC Auto (Bld)Ordered By: Bertram Garrison on 01-14-2022 Eosinophils/100 WBC (Bld)3.3 %.[facility] HospitalErythrocyte distribution width Auto (RBC) [Ratio]Ordered By: Bertram Garrison on 01-14-2022 Erythrocyte distribution width (RBC) [Ratio]14.4 %11.9-15.3FOhio State Health SystemHematocrit Auto (Bld) [Volume fraction]Ordered By: Bertram Garrison on 27-76-3210Rcgvifsedy (Bld) [Volume fraction]35.4 %34.0-46.4FOhio State Health SystemLaboratory - Hematology and Cell countsOrdered By: Bertram Garrison on 53-47-4804Avvtxmxzu RBC/100 WBC (Bld) [Ratio]0.3 %0-0.5FOhio State Health SystemLymphocytes Auto (Bld) [#/Vol]Ordered By: Bertram Garrison on 30-71-3511Cpgafcxeowu (Bld) [#/Vol]7.2 10*3/uL1.00-4.8The [facility] HospitalLymphocytes/100 WBC Auto (Bld)Ordered By: Bertram Garrison on 01-14-2022 Lymphocytes/100 WBC (Bld)62.9 %.[facility] Auto (RBC) [Entitic mass]Ordered By: Bertram Garrison on 62-15-4929FNU (RBC) [Entitic mass] 28.4 pg24.7-34.3FOhio State Health SystemMCHC Auto (RBC) [Mass/Vol] Ordered By: Bertram Garrison on 72-06-0643YBWK (RBC) [Mass/Vol]32.9 g/dL32.0-35.0 [facility] HospitalMCV Auto (RBC) [Entitic vol]Ordered By: Bertram Garrison on 97-16-9051BPA (RBC) [Entitic vol]86.1 dC81-154EfwmfbjsqThe Jewish HospitalMonocytes Auto (Bld) [#/Vol]Ordered By: Bertram Garrison on 45-04-3579Awjblwlrd (Bld) [#/Vol]0.6 10*3/uL0.0-0.8The [facility] HospitalMonocytes/100 WBC Auto (Bld)Ordered By: Bertram Garrison on 01-14-2022 Monocytes/100 WBC (Bld)5.0 %.The [facility] HospitalNeutrophils Auto (Bld) [#/Vol]Ordered By: Bertram Garrison on 98-77-2075Ggyloljoebe (Bld) [#/Vol]3.2 10*3/uL1.8-7.7FOhio State Health SystemNeutrophils/100 WBC Auto (Bld) Ordered By: Bertram Garrison on 71-79-6527Dsnkphbliro/100 WBC (Bld)28.2 %.[facility] HospitalNo Panel InformationOrdered By: Bertram Garrison on 05-54-9551Gotncyyo EstimateNormalNormalThe Jewish HospitalPlatelet Morphology CommentNormalNormalThe Jewish HospitalPlatelet mean volume Auto (Bld) [Entitic vol]Ordered By: Bertram Garrison on 77-61-4885Dkadbhgx mean volume (Bld) [Entitic vol]9.8 fL6.3-10.7FOhio State Health System Platelets Auto (Bld) [#/Vol]Ordered By: Bertram Garrison on 27-49-4634Spkqsowqd (Bld) [#/Vol]277 10*3/pW999-298SbqkyqjelThe Jewish HospitalRBC Auto (Bld) [#/Vol]Ordered By: Bertram Garrison on 14-31-5848VWZ (Bld) [#/Vol]4.11 10*6/uL 3.60-5.00The [facility] HospitalRBC morphologyOrdered By: Bertram Garrison on 96-94-3364WDP morphology finding Nom (Bld)NormalThe Jewish HospitalAlbumin [Mass/volume] in Serum or PlasmaOrdered By: Butch Redding on 47-92-2477Czhgtqm [Mass/Vol]3.1 g/dL3.2-5.5FOhio State Health System Automated erythrocytes count in urine sediment (number/area)Ordered By: Butch Redding on 51-49-8755OQM Auto (Urine sed) [#/Area]0-1 [HPF]0-4FOhio State Health SystemAutomated leukocytes count in urine sediment (number/area)Ordered By: Butch Redding on 96-66-4438FBU Auto (Urine sed) [#/Area]50-100 [HPF]0-4 The [facility] HospitalBilirubin Test strip Ql (U)Ordered By: Butch Redding on 86-64-7086Yflymtaji Ql (U)1+NegativeThe Jewish Hospital COVID-19 Positive/NegativeOrdered By: Butch Redding on 78-14-6446LWKA-CoV-2 (COVID- 19) N gene FARRAH+probe Ql (Resp)NegativeNegativeThe Jewish Hospital Comment on above:Testing for SARS-CoV-2 by RT-PCR This test was developed and its performance characteristics determined by [employer] ([employer]) and validated at the [facility]. This test has not been FDA [...] of time the declaration that circumstances exist ju stifying the authorization of the emergency use of in vitro diagnostic tests for detection of SARS-CoV-2 virus and/or diagnosis of COVID-19 infection under section 564(b)(1) of the Act, 21 U.S.C. 360bbb-3(b)(1), unless the authorization is terminated or revoked sooner.COVID-19 SOFIAOrdered By: Butch Redding on 03-24-9780MVPE-CoV+SARS-CoV-2 (COVID-19) Ag IA.rapid Ql (Resp)NegativeNegative The [facility] HospitalComment on above:This is a duplicate Brianna SARS Antigen (DUSTIN) result to be used for statistical tracking purpose only.Color Auto (U)Ordered By: Butch Redding on 21-29-7613Rvepe (U)Dark yellowYellowThe Jewish HospitalGlobulin Calc (S) [Mass/Vol]Ordered By: Butch Redding on 21-82-5988Kmzmxjio (S) [Mass/Vol]3.0 g/dLThe Jewish Hospital Ketones Auto test strip (U) [Mass/Vol]Ordered By: Butch Redding on 01-13-2022 Ketones (U) [Mass/Vol]TraceNegativeThe Jewish HospitalLaboratory - UrinalysisOrdered By: Butch Redding on 74-76-6400Ozvrffg casts LM Ql (Urine sed)9- 19 [LPF]0-8The [facility] HospitalNitrite Test strip Ql (U)Ordered By: Butch Redding on 77-20-4377Qybybak Ql (U)NegativeNegativeThe Jewish HospitalNo Panel InformationOrdered By: Butch Redding on 96-65-9737Yifwbr CellsFewHighland District HospitalARS Antigen (LFIA)[facility] HospitalProtein Auto test strip (U) [Mass/Vol]Ordered By: Butch Redding on 70-78-6265Xtyjnkk (U) [Mass/Vol]30 mg/dLNegativeThe Jewish HospitalProtein [Mass/volume] in Serum or PlasmaOrdered By: Butch Redding on 29-49-3481Hgfixwh [Mass/Vol]6.1 g/dL6.1-7.9[facility] Serum or plasma alanine aminotransferase measurement without P-5'-P (enzymatic activiOrdered By: Butch Redding on 79-89-0754BMM No additional P-5'-P [Catalytic activity/Vol]27 U/U27-21RtlgafdzwHighland District Hospitalerum or plasma albumin/globulin mass ratioOrdered By: Butch Redding on 30-92-9764Yodfeat/Globulin [Mass ratio]1.0 {ratio}[facility] Hospitalerum or plasma alkaline phosphatase measurement (enzymatic activity/volume)Ordered By: Butch Redding on 28-88-8496QHJ [Catalytic activity/Vol]95 U/C44-10CqficmdzfHighland District Hospitalerum or plasma aspartate aminotransferase measurement (enzymatic activity/volume)Ordered By: Butch Redding on 02-87-4393ITA [Catalytic activity/Vol] 27 U/L88-92LraxiudbkHighland District Hospitalerum or plasma total bilirubin measurement (mass/volume)Ordered By: Butch Redding on 57-37-2841Ewzfvfbgu [Mass/Vol]0.6 mg/dL0.3-1.2FCincinnati VA Medical Centerpecific gravity Auto test strip (U) [Rel density]Ordered By: Butch Redding on 14-91-7258Abfejyhi gravity (U) [Rel density]1.0291.001-1.030[facility] Squamous epithelial cells detection in urine sediment by light microscopyOrdered By: Butch Redding on 68-69-8390Afbtlcxuir cells.squamous LM Ql (Urine sed)1-2 [HPF] 0-1FOhio State Health SystemTroponin I.cardiac [Mass/volume] in Serum or Plasma by High sensitivity methodOrdered By: Butch Redding on 32-33-9735Ayiaikcy I.cardiac High sensitivity method [Mass/Vol]4 pg/mL0-15[facility] HospitalUrine bacteria detection by automated methodOrdered By: Butch Redding on 31-52-7382Ylobnwal Auto Ql (U)2+None SeenThe [facility] Hospital Urine clarity by refractometry automatedOrdered By: Butch Redding on 01-13-2022 Clarity Refractometry automated (U)[facility]Cle[facility] Urine glucose measurement by automated test strip (mass/volume)Ordered By: Butch Redding on 01-89-6468Gdmbwtn Auto test strip (U) [Mass/Vol]Normal mg/dLParkwood HospitalUrine hemoglobin detection by automated test stripOrdered By: Butch Redding on 48-22-4639Cucjcdeulo Auto test strip Ql (U) NegativeNegativeThe Jewish HospitalUrine leukocyte esterase detection by automated test stripOrdered By: Butch Redding on 31-44-4206Vcndtywag esterase Auto test strip Ql (U)3+NegativeThe [facility] Hospital Urobilinogen Auto test strip (U) [Mass/Vol]Ordered By: Butch Redding on 01-13-2022 Urobilinogen (U) [Mass/Vol]Normal mg/dLNoSouthwest General Health CenterpH Auto test strip (U)Ordered By: Butch Redding on 77-39-4793yE (U)5.0 [pH]5.0-9.0 [facility] HospitalNO CARDIAC STRESS/REST INJECTIONon 01-04-2021 [facility] CARDIAC STRESS/REST INJECTIONMRN: [id number] Patient Name: KATHY WASHBURN STUDY: MYOCARDIAL PERFUSION STRESS TEST WITH LEXISCAN Performing facility: [facility], [address] [place] [address], [address] [place] [id number] [facility] Provider: Osmel Fernandes MD, [facility] PCP: Dr. Lyndon Vicente Supervising provider: Osmel Fernandes MD, [facility] INDICATION: Chest Pain; HTN Hyperlipidemia Diabetes Dyspnea HISTORY: Gender: F; Age: 80 y/o ; Height: 175.26 cm; Weight: 646.6074826 kg. High Cholesterol; Diabetes; HTN; Chest Pain; SOB; Quit smoking Unknown years ago. COMPARISON: Previous nuclear testing completed at [facility]. ACCESSION NUMBER(S): [id number]; [id number]; [id number] ORDERING CLINICIAN: MONET FERNANDES TECHNIQUE: ONE DAY [...] for comparison. Electronically signed by: SARAH HODGES MDWarren State Hospital Vital Signs Date TimeVital SignValuePerforming UrixnheoaEmgeyaup93-70-2759 11:01-0400Body ozibho895.26 cmDavid ShowMe DO Work Phone: [facility]10-16-2025 11:01-0400 Body mass index (BMI) [Ratio]34.1 kg/z9Ysfmt ShowMe DO Work Phone: [facility]10-16-2025 11:01-0400 Body mdtkakqhypc89.2 [degF]Ayanna Earleabbi DO Work Phone: 1(294)[address] [place], [place] 9514810-16-2025 11:01-0400 Body prohvy585.77 kgDavileonila Vicente DO Work Phone: [phone])[address] [place], [place] 9514810-16-2025 11:01-0400 Diastolic blood kiqlnfri10 mm[Hg]Ayanna Vicente DO Work Phone: 1(419)[address] [place], [place] 9514810-16-2025 11:01-0400 Heart rate75 /Lelescott Ogabbi DO Work Phone: [phone])[address] [place], [place] 9514810-16-2025 11:01-0400 SaO2% (BldA) [Mass fraction]92 %Ayanna Vicente DO Work Phone: 1(478)[address] [place], [place] 9514810-16-2025 11:01-0400 Systolic blood bhlwtzme057 mm[Hg]Ayanna Vicente DO Work Phone: 1(784)[address] [place], [place] 9514810-14-2025 13:44-0400 Body uzjhdj426.26 cmDaangelaleonila Sakina DO Work Phone: 1(737)[address] [place], [place] 9514810-14-2025 13:44-0400 Body mass index (BMI) [Ratio]34.4 kg/y1Gkxsh Sakina DO Work Phone: 1(286)[address] [place], [place] 9514810-14-2025 13:44-0400 Body rnhjrwinnag74.3 [degF]Ayanna Vicente DO Work Phone: 1(449)[address] [place], [place] 9514810-14-2025 13:44-0400 Body spoofk277.68 kgDaangelaleonila Ogabbi DO Work Phone: 1(900)[address] [place], [place] 9514810-14-2025 13:44-0400 Diastolic blood phnktnze94 mm[Hg]Ayanna Vicente DO Work Phone: 1(733)[address] [place], [place] 9514810-14-2025 13:44-0400 Heart rate80 /Lelescott Vicente DO Work Phone: 1(083)[address] [place], [place] 9514810-14-2025 13:44-0400 Respiratory rate20 /minDscott Vicente DO Work Phone: 1(157)[address]10-14-2025 13:44-0400 SaO2% (BldA) [Mass fraction]88 %Ayanna Vicente DO Work Phone: 1(794)[address]10-14-2025 13:44-0400 Systolic blood qvgxjoms72 mm[Hg]Ayanna Vicente DO Work Phone: [phone])[address] [place], [place] 9514808-05-2025 14:44-0400 Body bxirbx825.26 cmDaangelaleonila Ogabbi DO Work Phone: 1(880)[address] [place], [place] 9514808-05-2025 14:44-0400 Body mass index (BMI) [Ratio]34 kg/w4Kolsy Sakina DO Work Phone: 1(773)[address] [place], [place] 9514808-05-2025 14:44-0400 Body rqleldikgwd66.3 [degF]Ayanna Vicente DO Work Phone: 1(838)[address] [place], [place] 9514808-05-2025 14:44-0400 Body .32 kgDaperi Vicente DO Work Phone: 1(011)[address] [place], [place] 9514808-05-2025 14:44-0400 Diastolic blood llqrihrp50 mm[Hg]Ayanna Vicente DO Work Phone: 1(917)[address] [place], [place] 9514808-05-2025 14:44-0400 Heart rate79 /Peggyleonila Vicente DO Work Phone: 1(406)[address] [place], [place] 9514808-05-2025 14:44-0400 SaO2% (BldA) [Mass fraction]92 %Ayanna Vicente DO Work Phone: 1(161)[address] [place], [place] 9514808-05-2025 14:44-0400 Systolic blood yjzrwfyd102 mm[Hg]Ayanna Vicente DO Work Phone: 1(810)[address] [place], [place] 9514807-17-2025 13:56-0400 Body llntif776.26 cmDaangelaleonila Ogabbi DO Work Phone: 1(797)[address]07-17-2025 13:56-0400 Body mass index (BMI) [Ratio]33.5 kg/t7Yiurbperi Vicente DO Work Phone: 1(947)[address]07-17-2025 13:56-0400 Body cenhsd557.02 kgDaperi Vicente DO Work Phone: 1(065)[address]07-17-2025 13:56-0400 Diastolic blood xaaxrtni72 mm[Hg]Ayanna Vicente DO Work Phone: 1(639)[address]07-17-2025 13:56-0400 Heart rate59 /Lewis Vicente DO Work Phone: 1(228)[address]07-17-2025 13:56-0400 Respiratory rate16 /Lewis Vicente DO Work Phone: 1(555)[address]07-17-2025 13:56-0400 SaO2% (BldA) [Mass fraction]94 %Ayanna Vicente DO Work Phone: 1(776)[address]07-17-2025 13:56-0400 Systolic blood ikksgyoo045 mm[Hg]Ayanna Vicente DO Work Phone: 1(216)[address]07-02-2025 13:23-0400 Body bzujlw111.3 cmFredric Itzkowitz DO Work Phone: [facility]wnMmfwojymcu25-60-7521 13:23-0400Body mass index (BMI) [Ratio]33.23 kg/n2Vpqzfxc Itzkowitz DO Work Phone: [facility] LawnBzkysjhrrb37-99-0331 13:23-0400Body yfumnz520.06 kgFredric Itzkowitz DO Work Phone: [facility] LawnYfaofxnzxm01-53-0100 13:23-0400Diastolic blood fsoitcyg36 mm[Hg]Moe Itzkowitz DO Work Phone: [facility] LawnNravynabup55-63-4570 13:23-0400Systolic blood apibdtui457 mm[Hg]Moe Roxane WISDOM Work Phone: [facility] LawnQheghsqsic97-81-3513 10:270400Body zanutb086.7 Geovani German MD Work Phone: [facility]06-06-2025 10:27-0400Body mass index (BMI) [Ratio]34.74 kg/y7XefxudZohaib German MD Work Phone: [facility]06-06-2025 10:27-0400Body temperature 64.99 [degF]Zohaib German MD Work Phone: [facility]06-06-2025 10:270400Body ihvmnh988.6 kgZohaib German MD Work Phone: [facility]06-06-2025 10:27-0400Diastolic blood wvuenbyg66 mm[Hg]Zohaib German MD Work Phone: [facility]06-06-2025 10:27-0400Systolic blood ydonzack652 mm[Hg]Zohaib German MD Work Phone: [facility]06-05-2025 14:0400Body .26 cm[facility]06-05-2025 14:21-0400Body mass index (BMI) [Ratio]34.9 kg/f9LvzwjlqbaThe [facility] Hospital06-05-2025 14:0400Body bjzzdadhtgy97.9 [degF][facility]06-05-2025 14:0400Body yyutpt204.5 kgThe [facility]06-05-2025 14:210400Diastolic blood pahtncyh51 mm[Hg][facility]06-05-2025 14:21-0400 Heart rate68 /[facility]06-05-2025 14:21-0400 Respiratory rate18 /[facility]06-05-2025 14:21-0400 SaO2% (BldA) [Mass fraction]92 %[facility]06-05-2025 14:21-0400Systolic blood zcwgqauu617 mm[Hg][facility] 11-10-2024 15:40-0400Body jrifrs251.26 cmThe [facility] 11-10-2024 15:40-0400Body mass index (BMI) [Ratio]32.9 kg/e9CzvmaqjktThe [facility] Hospital04-30-2025 15:40-0400Body tirylkgzoef49.3 [degF][facility]04-30-2025 15:40-0400Body pqifuh110.15 kgThe [facility]04-30-2025 15:40-0400Diastolic blood mm[Hg][facility]04-30-2025 15:40-0400Heart rate74 /minThe [facility] Hospital04-30-2025 15:40-9699XyW3% (BldA) [Mass fraction]94 %[facility]04-30-2025 15:40-0400Systolic blood jhjzruzx995 mm[Hg] [facility]02-03-2025 09:06-0500Diastolic blood lfvuhaao46 mm[Hg]SUSANCHARLI RANDOLPH [facility]02-03-2025 09:06-0500Heart rate69 /minJENNIFER JAX [facility]02-03-2025 09:06-0500Respiratory rate16 /minJENNIFER JAX [facility]02-03-2025 09:06-0500Systolic blood acsbywao92 mm[Hg]SUSAN KHANRY [facility]01-27-2025 14:16-0500Body mass index (BMI) [Ratio]32.93 kg/q2LwxhitEsvin Dubon NP Work Phone: [facility]wnUwwupgdjnl32-76-4576 14:16-0500Body .15 kgEsvin Dubon NP Work Phone: [facility] LawnLwfppkszgl45-72-7501 14:16-0500Diastolic blood armakzhn59 mm[Hg]Esvin Dubon WINE MANAGER Work Phone: [facility] LawnMvzxxunxqj14-80-8576 14:16-0500Heart rate64 /min Esvin Dubon WINE MANAGER Work Phone: [facility] LawnSyxwjymvjj80-38-4710 14:16-0500Systolic blood mm[Hg]Esvin Dubon WINE MANAGER Work Phone: [facility] LawnJwekqlozxv91-05-7840 14:34-0500Body .3 cmFredric Itzkowitz DO Work Phone: [facility] LawnKveiyvjdpp35-01-2073 14:34-0500Body mass index (BMI) [Ratio]33.67 kg/t0Unabzeq Itzkowitz DO Work Phone: [facility] LawnKipsrnjqaq18-89-4560 14:34-0500Body fjwiix262.42 kgFredric Itzkowitz DO Work Phone: [facility] LawnJabsgqjtww51-94-6645 14:34-0500Diastolic blood qgtvlfhi12 mm[Hg]Moe Itzkowitz DO Work Phone: [facility] LawnHnnuutrbsh61-32-8034 14:34-0500Systolic blood riawxupz857 mm[Hg]Moe Itzkowitz DO Work Phone: [facility] LawnPmwscirkum39-19-1872 13:58-0500Body mass index (BMI) [Ratio]33.82 kg/z2Pxjsoivfxou Aundrea DO Work Phone: [facility] LawnCoirvgvusp13-53-9883 13:58-0500Body yatxsy558.87 kgChristopher Aundrea DO Work Phone: [facility] LawnLtkviejtgi29-37-8864 13:58-0500Diastolic blood jfrlpjan94 mm[Hg]Christopher Aundrea DO Work Phone: [facility] LawnRgmfyvivcx22-95-5963 13:58-0500Heart rate84 /min Christopher Aundrea DO Work Phone: [facility] LawnXjeyqkjmnu85-68-2592 13:58-2633DuM6% (BldA) [Mass fraction]90 %Christalicia Guillaume DO Work Phone: [facility] LawnWgkeymdhln94-86-6600 13:58-0500Systolic blood vyrmyiua610 mm[Hg]Babita Guillaume DO Work Phone: [facility] LawnApigcfeooh36-83-2295 13:54-0500Body ovodar006.7 cmAdeshawn Freitas MD Work Phone: 1(355)[address] [place], [place] 0476611-13-2024 13:54-0500Body mass index (BMI) [Ratio]35.31 kg/e4PfvjvfChad Freitas MD Work Phone: 1(125)269-[address] [place], [place] 0476611-13-2024 13:54-0500Body temperature 97 [degF]Chad Freitas MD Work Phone: 1(105)133-[address] [place], [place] 1450611-13-2024 13:54-0500Body adjpfv114.33 kgChad Freitas MD Work Phone: 1(638)883-[address] [place], [place] 0476611-13-2024 13:54-0500Diastolic blood tumdjkqm75 mm[Hg]Chad Freitas MD Work Phone: 1(907)037-[address] [place], [place] 0476611-13-2024 13:54-0500Heart rate70 /min Chad Freitas MD Work Phone: 4(146)386-[address] [place], [place] 0476611-13-2024 13:54-0500Respiratory rate 16 /minChad Freitas MD Work Phone: 1(808)301-[address] [place] [address]-13-2024 13:54-1675NaX6% (BldA) [Mass fraction]91 %Chad Freitas MD Work Phone: 1(371)415-[address] [place], [place] 0476611-13-2024 13:54-0500Systolic blood fkhicser48 mm[Hg]Chad Freitas MD Work Phone: 1(569)884-[address] [place], [place] 0476611-04-2024 13:00-0500Body jkirgs461.7 cmRobert Perhala MD Work Phone: [facility]11-04-2024 13:00-0500Body mass index (BMI) [Ratio]34.67 kg/b7PoepgsZohaib German MD Work Phone: [facility]11-04-2024 13:00-0500Body zjfmde666.4 kgZohaib German MD Work Phone: [facility]11-04-2024 13:00-0500Diastolic blood gihvakke51 mm[Hg]Zohaib German MD Work Phone: [facility]11-04-2024 13:00-0500Heart rate62 /min Zohaib German MD Work Phone: [facility]11-04-2024 13:00-0500Systolic blood erdovdjc624 mm[Hg]Zohaib German MD Work Phone: [facility]10-30-2024 13:50-0400Body ikmlbk434.34 cmDO Ayanna Vicente Work Phone: 1(135)447[facility]74[facility]10-30-2024 13:50-0400 Body mass index (BMI) [Ratio]32.2 kg/m2DO Ayanna Vicente Work Phone: 1(996)909[facility]64[facility]10-30-2024 13:50-0400 Body vcouzg946.77 kgDO Ayanna Vicente Work Phone: 1([phone]10-30-2024 13:50-0400 Diastolic blood pmfasezn81 mm[Hg]DO Ayanna Vicente Work Phone: 1(256)196-26[facility]10-30-2024 13:50-0400 Heart rate86 /minDO Ayanna Vicente Work Phone: 1([phone]10-30-2024 13:50-0400 SaO2% (BldA) [Mass fraction]93 %DO Ayanna Vicente Work Phone: [phone]10-30-2024 13:50-0400 Systolic blood qhdwugec153 mm[Hg]DO Ayanna Vicente Work Phone: 1(419)[address]10-29-2024 14:45-0400 Body mass index (BMI) [Ratio]31.9 kg/m2DO Ayanna Earleabbi Work Phone: 1(218)[address]10-29-2024 14:45-0400 Body exnuyypwpmp94.3 [degF]DO Ayanna Vicente Work Phone: 1(345)[address]10-29-2024 14:45-0400 Diastolic blood conluzla83 mm[Hg]DO Ayanna Vicente Work Phone: 1(227)[address]10-29-2024 14:45-0400 Heart rate76 /minDO Ayanna Vicente Work Phone: 1(023)[address]10-29-2024 14:45-0400 SaO2% (BldA) [Mass fraction]91 %DO Ayanna Vicente Work Phone: 1(202)[address]10-29-2024 14:45-0400 Systolic blood bgjuueog626 mm[Hg]DO Ayanna Vicente Work Phone: 1(617)[address]10-29-2024 13:41-0400 Body ubmcwg530.34 cmDO Ayanna Vicente Work Phone: 1(480)[address]10-29-2024 13:41-0400 Body ltmeuu655.87 kgDO Ayanna Vicente Work Phone: 1(295)[address]09-23-2024 08:52-0400 Body lkzbtu430.34 cmThe [facility]09-23-2024 08:52-0400Body mass index (BMI) [Ratio]32.3 kg/i3ErikenhklThe [facility] Hospital09-23-2024 08:52-0400Body [degF][facility]09-23-2024 08:52-0400Body .23 kgThe [facility]09-23-2024 08:52-0400Diastolic blood ebjyvymf58 mm[Hg][facility] 04-05-2024 08:52-0400Heart rate87 /[facility] 04-05-2024 08:52-4322KdW8% (BldA) [Mass fraction]90 %[facility]09-23-2024 08:52-0400Systolic blood qysfcvfn86 mm[Hg][facility]08-26-2024 14:43-0400Body ofkacg829.34 cmThe [facility]08-26-2024 14:43-0400Body mass index (BMI) [Ratio]32.1 kg/m2 [facility]08-26-2024 14:43-0400Body yqcnnnhzitq49 [degF] [facility]08-26-2024 14:43-0400Body .32 kg [facility]08-26-2024 14:43-0400Diastolic blood luinrysd16 mm[Hg][facility]08-26-2024 14:43-0400Heart rate73 /min [facility]08-26-2024 14:43-0475MyY0% (BldA) [Mass fraction]95 %[facility]08-26-2024 14:43-0400Systolic blood ixjwfhcj09 mm[Hg][facility]08-13-2024 10:15-0400 Body .88 [degF]SUSANCHARLI RANDOLPH [facility]08-13-2024 10:15-0400Diastolic blood xermiihq31 mm[Hg]SUSAN KHANRY [facility]08-13-2024 10:15-0400Heart rate68 /minJENNIFER JAX [facility]08-13-2024 10:15-0400Respiratory rate16 /minJENNIFER JAX [facility]08-13-2024 10:15-0400Systolic blood jstagaej928 mm[Hg]SUSAN KHANRY [facility]07-25-2024 08:08-0400Body qeijiq472.34 cmThe [facility]07-25-2024 08:08-0400Body mass index (BMI) [Ratio]32.3 kg/l0LehjpgbjqThe [facility]07-25-2024 08:08-0400Body tzorjegtjoe48.8 [degF][facility]07-25-2024 08:08-0400Body .23 kgThe [facility]07-25-2024 08:08-0400Diastolic blood rjbaheuh29 mm[Hg] [facility]07-25-2024 08:08-0400Heart rate70 /[facility]07-25-2024 08:08-0400Respiratory rate18 /[facility]07-25-2024 08:08-8269PnV8% (BldA) [Mass fraction]98 % [facility]07-25-2024 08:08-0400Systolic blood hnemitwi357 mm[Hg][facility]07-01-2024 14:32-0400Body dkhhye875.34 cm DO Ayanna Vicente Work Phone: [facility]07-01-2024 14:32-0400 Body mass index (BMI) [Ratio]30.9 kg/m2DO Ayanna Vicente Work Phone: [facility]07-01-2024 14:32-0400 Body bhhomjavbkg43 [degF]DO Ayanna Vicente Work Phone: [facility]07-01-2024 14:32-0400 Body atygnr325.69 kgDO Ayanna Vicente Work Phone: [facility]07-01-2024 14:32-0400 Heart rate61 /Rachael Vicente Work Phone: [facility]07-01-2024 14:32-0400 Respiratory rate18 /Rachael Vicente Work Phone: [facility]07-01-2024 14:32-0400 SaO2% (BldA) [Mass fraction]91 %DO Ayanna Vicente Work Phone: 1(183)846[facility]27[facility]04-09-2024 14:45-0400 Body kphoak152.34 cmDO Ayanna Vicente Work Phone: 1(288)495[facility]88[facility]04-09-2024 14:45-0400 Body mass index (BMI) [Ratio]32.5 kg/m2DO Ayanna Vicente Work Phone: 1(167)[address]04-09-2024 14:45-0400 Body .5 [degF]DO Ayanna Vicente Work Phone: 1(918)32492 [address]04-09-2024 14:45-0400 Body sqnezr834.68 kgDO Ayanna Vicente Work Phone: 1(831)[address]04-09-2024 14:45-0400 Diastolic blood drihlvqi30 mm[Hg]DO Ayanna Vicente Work Phone: 1(471)[address]04-09-2024 14:45-0400 Respiratory rate18 /minDO Ayanna Vicente Work Phone: 9(652)[address]92 [address]04-09-2024 14:45-0400 SaO2% (BldA) [Mass fraction]92 %DO Ayanna Vicente Work Phone: 4(735)62292 [address]04-09-2024 14:45-0400 Systolic blood xymdknnm011 mm[Hg]DO Ayanna Vicente Work Phone: 1(443)679-[address] [place], [place] 3774501-30-2024 14:20-0500 Body loljxq417.34 cmJeSavedaily Other [facility]01-30-2024 14:20-0500 Body mass index (BMI) [Ratio]32.21 kg/c2AsynlpmExacter Other [employer] Other 01-30-2024 14:20-0500Body ykcico979.78 kgJeSavedaily Other [facility] [employer] Other 01-30-2024 14:20-0500Body jenksq425.77 kgDO Ayanna Vicente Work Phone: [facility]10-03-2023 14:40-0400 Body mukewd512.34 cmDaperi Vicente Other [employer] Other 10-03-2023 14:40-0400Body mass index (BMI) [Ratio] 33.61 kg/b7Yunadperi Vicente Other [employer] Other 10-03-2023 14:40-0400Body cbrwwblljur97.8 [degF]Ayanna Vicente Other [employer] Other 10-03-2023 14:40-0400Body .32 kgDaperi Vicente Other [employer] Other 10-03-2023 14:40-0400Diastolic blood mm[Hg] Ayanna Vicente Other [employer] Other 10-03-2023 14:40-0400Respiratory rate18 /minDscott Vicente Other [employer] Other 10-03-2023 14:40-7072BmZ9% (BldA) [Mass fraction]93 % Ayanna Vicente Other [employer] Other 10-03-2023 14:40-0400Systolic blood mm[Hg] Ayanna Vicetne Other [employer] Other 08-15-2023 14:40-0400Body oabghx519.34 cmDaperi Vicente Other [employer] Other 08-15-2023 14:40-0400Body mass index (BMI) [Ratio] 32.91 kg/l5VfzfzAyanna Vicente Other [employer] Other 08-15-2023 14:40-0400Body lbatyldtusg04.9 [degF][facility] Other 08-15-2023 14:40-0400Body iaokvd912.05 kgDaperi Vicente Other [facility] Other 08-15-2023 14:40-0400Diastolic blood uvwonrvb02 mm[Hg] Ayanna Vicente [facility] Other 08-15-2023 14:40-0400Respiratory rate18 /minDscott Vicente Other [facility] Other 08-15-2023 14:40-2789DhO4% (BldA) [Mass fraction]94 % Ayanna Vicente Other [facility] Other 08-15-2023 14:40-0400Systolic blood mm[Hg] Ayanna Vicente Other [employer] Other 08-01-2023 11:35-0400Blood Pressure LocationJENNIFER JAX [facility]08-01-2023 11:35-0400Diastolic blood tyyxpxhc00 mm[Hg]SUSAN JAX [facility]08-01-2023 11:35-0400Heart rate70 /minJENNIFER JAX [facility]08-01-2023 11:35-0400Systolic blood qackbjnq816 mm[Hg]SUSAN RANDOLPH [facility]07-28-2023 13:28-0400Body wkbuca970.8 cmSantos Lares MD Work Phone: [facility]07-28-2023 13:28-0400Body temperature 97.3 [degF]Santos Lares MD Work Phone: [facility]07-28-2023 13:28-0400Body zdcicf589.96 kgSantos Lares MD Work Phone: [facility]07-28-2023 13:28-0400Diastolic blood cmxudksj54 mm[Hg]Santos Lares MD Work Phone: [facility]07-28-2023 13:28-0400Heart rate74 /min Santos Lares MD Work Phone: [facility]07-28-2023 13:28-0400Respiratory rate 20 /minSantos Lares MD Work Phone: [facility]07-28-2023 13:28-5692MoN0% (BldA) [Mass fraction]93 %Santos Lares MD Work Phone: [facility]07-28-2023 13:28-0400Systolic blood bnsfmatz525 mm[Hg]Santos Lares MD Work Phone: [facility]01-06-2023 12:17-0500Body hdekyf871.8 Ti Lares MD Work Phone: [facility]01-06-2023 12:17-0500Body temperature 98.01 [degF]Santos Lares MD Work Phone: 1(419)626-[address] [place], [place] 2953001-06-2023 12:17-0500Body ligodf352.6 kgSantos Lares MD Work Phone: [facility]01-06-2023 12:17-0500Diastolic blood mm[Hg]Santos Lares MD Work Phone: [facility]01-06-2023 12:17-0500Heart rate72 /min Santos Lares MD Work Phone: [facility]01-06-2023 12:17-0500Respiratory rate 16 /minSantos Lares MD Work Phone: [facility]01-06-2023 12:17-0918DfN1% (BldA) [Mass fraction]93 %Santos Lares MD Work Phone: [phone]01-06-2023 12:17-0500Systolic blood iluknusb159 mm[Hg]Santos Lares MD Work Phone: [facility]10-06-2022 11:58-0400Body wnlzyx346.8 cmSantos Lares MD Work Phone: [facility]10-06-2022 11:58-0400Body temperature 97.81 [degF]Santos Lares MD Work Phone: [facility]10-06-2022 11:58-0400Body .69 kgSantos Lares MD Work Phone: [facility]10-06-2022 11:58-0400Diastolic blood vaddfeof78 mm[Hg]Santos Lares MD Work Phone: [facility]10-06-2022 11:58-0400Heart rate70 /min Santos Lares MD Work Phone: [facility]10-06-2022 11:58-0400Respiratory rate 16 /minSantos Lares MD Work Phone: [facility]10-06-2022 11:58-8175VtA2% (BldA) [Mass fraction]99 %Santos Lares MD Work Phone: [facility]10-06-2022 11:58-0400Systolic blood ihlczmcn558 mm[Hg]Santos Lares MD Work Phone: [facility]09-22-2022 10:59-0400Body .8 cmSantos Lares MD Work Phone: [facility]09-22-2022 10:59-0400Body temperature 97.11 [degF]Santos Lares MD Work Phone: [facility]09-22-2022 10:59-0400Body .78 kgSantos Lares MD Work Phone: [facility]09-22-2022 10:59-0400Diastolic blood sljujcwi42 mm[Hg]Santos Lares MD Work Phone: [facility]09-22-2022 10:59-0400Heart rate68 /min Santos Lares MD Work Phone: [facility]09-22-2022 10:59-0400Respiratory rate 16 /minSantos Lares MD Work Phone: [facility]09-22-2022 10:59-3866LyB4% (BldA) [Mass fraction]95 %Santos Lares MD Work Phone: [facility]09-22-2022 10:59-0400Systolic blood wphiiphz502 mm[Hg]Santos Lares MD Work Phone: [facility]09-20-2022 14:20-0400Body dxymni601.34 cmAyanna Vicente Other [place] [employer] Other [id number] 14:20-0400Body mass index (BMI) [Ratio] 31.73 kg/u2Nqfnfperi Vicente Other [employer] Other 09-20-2022 14:20-0400Body wotkpjzilra72.2 [degF]Ayanna Vicente Other [employer] Other 09-20-2022 14:20-0400Body zzfekp188.19 kgDaperi Vicente Other [employer] Other 09-20-2022 14:20-0400Diastolic blood pczcahyt53 mm[Hg] Ayanna Vicente Other [employer] Other 09-20-2022 14:20-0400Respiratory rate18 /minDscott Vicente Other [employer] Other 09-20-2022 14:20-6514KfM6% (BldA) [Mass fraction]96 % Ayanna Vicente Other [employer] Other 09-20-2022 14:20-0400Systolic blood asnrtibj354 mm[Hg] Ayanna Vicente Other [employer] Other 07-27-2022 14:20-0400Body .34 cmDaperi Vicente Other [employer] Other 07-27-2022 14:20-0400Body mass index (BMI) [Ratio] 31.94 kg/t0RjiyyAyanna Vicente Other [employer] Other 07-27-2022 14:20-0400Body fkofvaxrppo61.4 [degF]Ayanna Vicente Other [employer] Other 07-27-2022 14:20-0400Body cqpmib463.87 kgDaangelaleonila Vicente Other [place] [employer] Other 07-27-2022 14:20-0400Diastolic blood buxcvenc73 mm[Hg] Ayanna Vicente Other [place] [employer] Other 07-27-2022 14:20-0400Respiratory rate18 /Lewis Vicente Other [place] [employer] Other 07-27-2022 14:20-9468DqQ8% (BldA) [Mass fraction]93 % Ayanna Vicente Other [place] [employer] Other 07-27-2022 14:20-0400Systolic blood mm[Hg] Ayanna Vicente Other [place] [employer] Other 07-16-2022 05:00-0400Body fnhooufprpl36.6 [degF]DO Ayanna Vicente Work Phone: [phone]07-16-2022 05:00-0400 Diastolic blood spulrfgj71 mm[Hg]DO Ayanna Vicente Work Phone: [phone]07-16-2022 05:00-0400 Heart rate64 /LeleO Ayanna Vicente Work Phone: [phone]07-16-2022 05:00-0400 Respiratory rate16 /LeleO Ayanna Vicente Work Phone: [phone]07-16-2022 05:00-0400 SaO2% (BldA) [Mass fraction]94 %DO Ayanna Vicente Work Phone: [facility]07-16-2022 05:00-0400 Systolic blood tgidzlkq347 mm[Hg]DO Ayanna Vicente Work Phone: 1(419)[address] [place], [place] 9514807-13-2022 06:55-0400 Body corpea379.8 cmDO Ayanna Vicente Work Phone: 1(001)[address] [place], [place] 9514807-10-2022 06:00-0400 Body ifjsym875.6 kgDO Ayanna Vicente Work Phone: [phone])[address] [place], [place] 9514807-05-2022 17:00-0400 Body mass index (BMI) [Ratio]33 kg/m2DO Ayanna Vicente Work Phone: 1(851)[address] [place], [place] 9514807-05-2022 15:40-0400 Body zojfbrplkbi17.9 [degF]DO Ayanna Vicente Work Phone: 1(589)[address] [place], [place] 9514807-05-2022 15:40-0400 Diastolic blood fmidtdyr36 mm[Hg]DO Ayanna Ogabbi Work Phone: 1(374)[address] [place], [place] 9514807-05-2022 15:40-0400 Heart rate72 /LeleO Ayanna Vicente Work Phone: 1(634)[address] [place], [place] 9514807-05-2022 15:40-0400 Respiratory rate18 /Rachael Ayanna Ogabbi Work Phone: 1(421)[address] [place], [place] 9514807-05-2022 15:40-0400 SaO2% (BldA) [Mass fraction]95 %DO Ayanna Ogabbi Work Phone: 1(667)[address] [place], [place] 9514807-05-2022 15:40-0400 Systolic blood mm[Hg]DO Ayanna Ogabbi Work Phone: 1(528)[address] [place], [place] 9514807-05-2022 05:11-0400 Body osxzxl859.9 kgDO Ayanna Vicente Work Phone: 1(682)[address] [place], [place] 9514807-03-2022 19:52-0400 Body jwdiuf221.8 cmDO Ayanna Vicente Work Phone: 1(890)[address] [place], [place] 9514807-03-2022 19:52-0400 Body mass index (BMI) [Ratio]34.9 kg/m2DO Ayanna Vicente Work Phone: 1(969)[address] [place], [place] 9514806-16-2022 11:10-0400 Body mojfoq571.34 cmDaperi Vicente Other [employer] Other 360738-99-2713 11:10-0400Body mass index (BMI) [Ratio] 33.12 kg/o8Kolbgperi Vicente Other [employer] Other 552168-87-0310 11:10-0400Body qhrnlcbmevx77.3 [degF]Ayanna Vicente Other [employer] Other 06-16-2022 11:10-0400Body ltosms031.73 kgDaperi Vicente Other [employer] Other 799574-69-1629 11:10-0400Diastolic blood dfikydww20 mm[Hg] Ayanna Vicente Other [employer] Other 06-16-2022 11:10-0400Respiratory rate20 /minDscott Vicente Other [employer] Other 199692-15-2508 11:10-8175CyR0% (BldA) [Mass fraction]93 % Ayanna Vicente Other [employer] Other 06-16-2022 11:10-0400Systolic blood ucmibkvp552 mm[Hg] Ayanna Vicente Other [employer] Other 06-06-2022 12:00-0400Body nygbfh635.34 cmDavileonila Hykes Other [employer] Other 06-06-2022 12:00-0400Body mass index (BMI) [Ratio] 32.21 kg/q9Wbyeo Hykes Other [employer] Other 06-06-2022 12:00-0400Body jxuorm551.78 kgDavileonila Alf Other [employer] Other 06-06-2022 12:00-0400Diastolic blood potdzqia87 mm[Hg] Ayanna Milner Other [employer] Other 06-06-2022 12:00-0400Systolic blood pqjzkivm41 mm[Hg] Ayanna Clevelandnilton Other [employer] Other 09-22-2021 14:20-0400Body viqhfy713.34 cmDaperi Vicente Other [employer] Other 09-22-2021 14:20-0400Body mass index (BMI) [Ratio] 32.35 kg/r1Qzcfrperi Vicente Other [employer] Other 09-22-2021 14:20-0400Body gndbgajagld58.7 [degF]Ayanna Vicente Other [employer] Other 09-22-2021 14:20-0400Body .24 kgDaperi Vicente Other [employer] Other 09-22-2021 14:20-0400Diastolic blood vxixqqeo11 mm[Hg] Ayanna Vicente Other [employer] Other 09-22-2021 14:20-0400Respiratory rate18 /minDavileonila Vicente Other [employer] Other 09-22-2021 14:20-5407HkX0% (BldA) [Mass fraction]97 % Ayanna Vicente Other [facility] [employer] Other [id number] 14:20-0400Systolic blood figzghuw228 mm[Hg] Ayanna Vicente Other [facility] [employer] Other Encounters Encounter DateEncounter TypeCare ProviderFacilityStart: 16-54-8669jploqqdxnt Sujey X OrzechFacility:EU BellevueStart: 04-28-2025 End: 18-51-7207wyucxkzxmrOwawt Girabbi DO Work Phone: [facility] Work Phone: Start: 04-28-2025 End: 46-45-7834Axvzhso encounter procedureDaperi Vicente DO-[facility] [place] Work Phone: Start: 04-26-2025 End: 13-98-1826yquhsgdlwhKfkze Girvin DO Work Phone: [facility] Work Phone: Start: 04-26-2025 End: 94-60-7970Tbhhzdw encounter procedureMckenzie Christopher GRAPHICS PRODUCTION SPECIALIST-[facility] Work Phone: Start: 04-18-2025 End: 69-23-9126Tfcsdr outpatient new 30 minutesRyTexas County Memorial Hospital [facility] Work Phone: VizsafeMS Bah DermatologyComment on above:Hill angioma (Primary Dx); Seborrheic keratosis; Actinic keratosis; Lentigines; Lipoma of right upper extremityStart: 04-18-2025 End: 70-25-2378wvsksjkgwnYSXUC [facility]AGE HOSPITALot AvailableStart: 04-18-2025 End: 68-90-7259Zikbxy [facility] PA Work Phone: noms Olvin DermatologyStart: 04-18-2025 End: 61-90-1358Hbjkoh [facility] Work Phone: NOMS Olvin DermatologyStart: 03-21-2025 End: 26-02-1930poyazlacrjIhqiqcg Vytautas Giedraitis MDFacility:PM [place] Start: 81-80-9458Wco-patient / Non-visitAndrius Giedraitis -[facility] Work Phone: Start: 03-07-2025 End: 31-77-0643lrbdmeyamaFxjqmkw Vytautas Giedraitis MDFacility:PM [place] Start: 02-28-2025 End: 86-44-9107ouzgavztiqAwawwmk Vytautas Giedraitis MDFacility:PM [place] Start: 02-21-2025 End: 53-22-1837dakbbmhrloAweglqa Vytautas Giedraitis MDFacility:PM [place] Start: 02-15-2025 End: 22-87-1576zcnpafebcbGgziv Girvin DO Work Phone: [facility] Work Phone: Start: 02-15-2025 End: 98-88-9464Lzkaayy encounter procedureAyanna Vicente DO-[facility] Work Phone: Start: 06-62-8544Nfi-patient / Non-visitAndrius Giedraitis -[facility] Work Phone: Start: 02-08-2025 End: 05-42-0165kujxyqnbssXLWTJHNL E PERRYFacility:EU [place]vueStart: 02-08-2025 End: 93-21-5764Umyvbuz encounter procedureJENNIFER E JAX [facility] [place] start: 01-27-2025 End: 71-97-5396xeiiifduccTkora Girvin DO Work Phone: [facility] Work Phone: Start: 01-27-2025 End: 30-14-1108Ngifjbs encounter procedureLesli Arevalo MD-[facility] Work Phone: Start: 01-19-2025 End: 58-83-2595Msoebhteq encounterFredric H Itzkowitz DO Work Phone: noms [facility] GENSStart: 01-19-2025 End: 98-43-0393Eilaedg encounter procedureFredric Itzkowitz DO-[facility] Work Phone: Start: 01-19-2025 End: 13-65-9596uozfpfqnivOnpin [facility]wor[facility] DO Work Phone: [facility] Work Phone: Start: 71-42-9420Ihr-patient / Non-visitLesli Arevalo MD -[facility] Work Phone: Start: 01-17-2025 End: 92-02-1866ihuecilzmgYnpnvod Vytautas Giedraitis MDFacility:[facility] [place] Start: 01-12-2025 End: 96-56-0592Egffkn outpatient visit 15 minutesFredric H Itzkowitz DO Work Phone: noms ST GENSComment on above:Diarrhea, unspecified type (Primary Dx)Start: 01-12-2025 End: 83-33-7579pzwkjuqqzvALGABSA H ITZKOWITZNot AvailableStart: 12-27-2024 End: 39-95-5399hplfywqsbzTxtnyzi Vytautas Giedraitis MDFacility:[facility] [place] Start: 12-20-2024 End: 60-41-0206scypntlkxsHbwrwcb Vytautas Giedraitis MDFacility:[facility] [place] Start: 12-17-2024 End: 32-98-3213Svhivvx encounter procedureZohaib German MD Work Phone: RheumatologyComment on above:Fibromyalgia (Primary Dx); Primary osteoarthritis involving multiple joints; Type 2 diabetes mellitus without complication, with long-term current use of insulin (HCC); Long-term use of PlaquenilStart: 12-17-2024 End: 87-76-7256gmenqqzlmtXGQPC Aquiles VICENTEFacility:[facility]tart: 12-16-2024 End: 39-05-2850dffayqxzvaEyiangtemUniversity Hospitals [facility] Work Phone: Start: 12-16-2024 End: 84-26-5690Gnugbes encounter procedureUn[facility] GroupPut[facility] Work Phone: Start: 11-17-2024 End: 14-14-4549Banwlsgdw encounterChad Freitas MD Work Phone: cancer Appts MCComment on above:Records faxedStart: 11-10-2024 End: 12-89-9095cuvxnwxeteRhutkqwbtDelaware County Hospital Work Phone: Start: 11-10-2024 End: 27-86-6756Habrvwn encounter procedureUn[facility]ician [facility] Work Phone: Start: 78-29-2601Een-patient / Non-visitUnc Health [facility] Physician [facility] Work Phone: Start: 11-01-2024 End: 98-36-5468lnogkixlxyWopwgub Vytautas Giedraitis Facility:[facility] [place] Start: 10-11-2024 End: 44-14-9545ksfdmvqoawXjgrurk Vytautas Giedraitis Facility:[facility] [place] Start: 09-03-2024 End: 46-39-8212ogabuyxsboZjmrg SakinaFacility:[facility] Start: 62-54-0751Qzn-patient / Non-visitMelissa Marker DO Work Phone: [facility] Work Phone: Start: 08-16-2024 End: 32-90-9056gfcohucixiZZKUOEBO E PERRYFacility:EU [place]vueStart: 08-16-2024 End: 93-64-3158Ghsntwp encounter procedureJENNIFER E JAX [facility] [place] start: 08-16-2024 End: 59-61-8562jvxvpgbvhkBjfjfis Vytautas Giedraitis MDFacility:[facility] [place] Start: 08-11-2024 End: 61-56-5287vkdenhzlnsWrdct Girvin DO Work Phone: [facility] Work Phone: Start: 08-11-2024 End: 06-57-8655Hhasrwc encounter procedureDavid Girvin DO Work Phone: [facility] [place] Work Phone: Start: 12-83-6298Ogj-patient / Non-visitDavid Girvin DO Work Phone: [facility] [place] Work Phone: Start: 08-10-2024 End: 33-56-6977xhmqpsvhjgAikiz Girvin DO Work Phone: [facility] Work Phone: Start: 08-10-2024 End: 29-90-7656Idmzbvbo ReferredDavid Girvin DO Work Phone: [facility] [place] Work Phone: Start: 08-09-2024 End: 52-13-3321Fcqcno outpatient visit 15 minutesEsvin Dubon WINE MANAGER Work Phone: ana LUCIAUEComment on above:Cognitive impairment (Primary Dx)Start: 08-09-2024 End: 69-46-8043kezkwopbrxCKSFQH MORRISNot AvailableStart: 08-09-2024 End: 06-70-2532Akuvso flowsheetEsvin Dubon WINE MANAGER Work Phone: aROBBI LUCIAUEStart: 08-09-2024 End: 27-62-7159Yyanpp Nestor Dubon WINE MANAGER Work Phone: ana ZOEITZELUEStart: 08-04-2024 End: 49-11-7046jbulatvxnbIYXRX NORTHEIMNot AvailableStart: 07-26-2024 End: 65-27-1273qtpcuysmcgRwlscub Vytautas Giedraitis MDFacility:[facility] [place] Start: 07-12-2024 End: 01-10-1380oodhwrhfyhMxfiwgm Vytautas Giedrarory MDFacility:[facility] [place] Start: 06-28-2024 End: 97-71-1722Cfeczi Mukesh Hammonds PhD Work Phone: noms NEUROLOGYStart: 06-28-2024 End: 22-84-7757Ztfgwu Mukesh Hammonds PhD Work Phone: noms NEUROLOGYStart: 06-28-2024 End: 35-98-9732Gzspszd encounter procedureEnrique Hammonds PhD Work Phone: noms NEUROLOGYComment on above:Memory loss (Primary Dx); Concentration deficit; Word finding difficulty; Other chronic pain; Family history of dementiaStart: 06-28-2024 End: 27-86-6425pxfbhiypetNMRZCQCA JUSTYNABESTENNot AvailableStart: 06-23-2024 End: 10-67-2375hnxponnvntXKWDKVG H ITZKOWITZNot AvailableStart: 06-23-2024 End: 85-51-1863Mcbaic outpatient visit 15 minutesFredric H Itzkowitz DO Work Phone: noms GENSComment on above:Diarrhea, unspecified type (Primary Dx); Constipation, unspecified constipation typeStart: 06-22-2024 End: 52-85-7604Xocedouxp Result EncounterChristopher Guillaume DO Work Phone: noms External Department UnsolicitedStart: 06-22-2024 End: 29-27-4397Kktczsuka Result EncounterChristopher Aundrea DO Work Phone: noms External Department UnsolicitedStart: 06-22-2024 Non-patient / Non-visitDavid Sakina DO Work Phone: [facility] GroupLifepoint [facility] Professional [facility] Work Phone: Start: 06-17-2024 End: 97-78-8249Xeknty flowsheetChristopher Aundrea DO Work Phone: noms [place] R[address]TEStart: 06-17-2024 End: 43-50-9618Mhszil flowsheetChristopher Aundrea DO Work Phone: noms [place] R[address]TEStart: 06-17-2024 End: 81-59-0102Sxupjg outpatient new 45 minutesChristopher Aundrea DO Work Phone: noms [facility] ROUTEComment on above:Cognitive impairment (Primary Dx); Long-term use of high-risk medicationStart: 06-17-2024 End: 49-75-0134edxcxfwfdoOLNGHTFOIVY HASSETTNot AvailableStart: 80-60-6121Pew- patient / Non-visitDavid Sakina DO Work Phone: [facility] GroupLif[facility] Work Phone: Start: 06-15-2024 End: 31-42-9419ooitcbnaejWyzcfxt Jane MarkerFacility:[facility] Hospitaltart: 06-15-2024 End: 74-10-9690Rxlexrdc ReferredDavid Sakina DO Work Phone: [facility] Spec [place] HospStart: 06-14-2024 End: 55-55-5808lgdhrtmvlgWbaoyxr Vytautas Giedraitis MDFacility:[facility] [place] Start: 06-08-2024 End: 65-26-7202Jrlkq joseingZohaib German MD Work Phone: RheumatologyStart: 06-07-2024 End: 76-48-0575pgntjmzxmjZujkcvaLefty Azul MDFacility:YONNY Restrepo Start: 05-26-2024 End: 51-81-1399mzluccleozZGNFQ C GIRVINFacility:[facility] Hospitaltart: 57-51-2258Nnv-patient / Non-visitDaperi Vicente DO Work Phone: [facility] GroupLif[facility] Work Phone: Start: 05-26-2024 End: 59-05-5194Senqeu outpatient visit 15 minutesAdarsh Zena ROMEO Work Phone: Hematology/OncologyComment on above:CLL (chronic lymphocytic leukemia) (HCC) (Primary Dx)Start: 05-26-2024 End: 93-28-2162Xycvzlq encounter procedureDaperi Vicente DO Work Phone: [facility] Work Phone: Start: 05-26-2024 End: 68-57-7349jgepntnrxjRlqgd Girvin DO Work Phone: [facility] Work Phone: Start: 05-18-2024 End: 90-55-3443Aulbipi encounter procedureDO Ayanna Vicente Work Phone: [facility] Work Phone: Start: 05-18-2024 End: 03-82-6460gbvdboyyftVK David Girvin Work Phone: [facility] Work Phone: Start: 05-17-2024 End: 34-51-2443owjdhzuubaRKBXIE PERHALAFacility:[facility] Hospitaltart: 05-17-2024 End: 07-33-7238Tkupqrb encounter Contreras German MD Work Phone: RheumatologyComment on above:Primary osteoarthritis involving multiple joints (Primary Dx); Fibromyalgia; Type 2 diabetes mellitus without complication, with long-term current use of insulin (HCC)Start: 05-12-2024 End: 69-49-3238mmcumcmkmsTMMarisol Vicente Work Phone: [facility] Work Phone: Start: 05-12-2024 End: 97-41-7816Qbedfrt encounter procedureDO Ayanna Vicente Work Phone: [facility] Work Phone: Start: 05-11-2024 End: 62-81-8118nzroexvtshHZMarisol Vicente Work Phone: [facility] Work Phone: Start: 05-11-2024 End: 18-06-5545Ojwyuni encounter Nicole Vicente Work Phone: [facility] Work Phone: Start: 05-06-2024 End: 46-26-8013Aqcxfke encounter Nicole Vicente Work Phone: [facility] [place] Work Phone: Start: 05-06-2024 End: 53-54-4536fcgzqgcczvKHMarisol Vicente Work Phone: [facility] Work Phone: Start: 04-05-2024 End: 97-61-4678oluxjtekwvMddzcelxzDelaware County Hospital Work Phone: Start: 04-05-2024 End: 21-09-3078Txwytiy encounter Le[facility] Work Phone: Start: 03-08-2024 End: 01-39-0346xpswkvhdivLmtqwnceqDelaware County Hospital Work Phone: Start: 03-08-2024 End: 64-57-5291Zkahufp encounter procedureMonroe Physician Group-[facility] Work Phone: Start: 02-24-2024 End: 54-63-5190livizzogijTEALKFGJ E PERRYFacility:EU [place]vueStart: 02-24-2024 End: 03-15-1303Qivkmnu encounter procedureJENNIFER E JAX [facility] [place] start: 02-05-2024 End: 42-31-6909blqoezujqtBzhdfwxydUniversity Hospitals [facility] Center Work Phone: Start: 02-05-2024 End: 50-37-9849Vxsnwmo encounter procedureBia Physician Group-[facility] [place] Work Phone: Start: 21-25-8760Pcb-patient / Non-visitFirchar Physician Group-[facility] Work Phone: Start: 01-12-2024 End: 45-69-5387nbpxtogzspGN Ayanna Vicente Work Phone: [facility] Work Phone: Start: 01-12-2024 End: 04-76-2025Bxsksab encounter procedureDO Ayanna Vicente Work Phone: [facility] Work Phone: Start: 10-21-2023 End: 36-90-3800esrzuhetpyCU Ayanna Vicente Work Phone: [facility] Work Phone: Start: 10-21-2023 End: 22-75-5888Ryvunbm encounter procedureDO Ayanna Vicente Work Phone: firan[facility]bal [facility] [place] Work Phone: start: 51-44-5355Iqc-patient / Non-visitDO Ayanna Vicente Work Phone: firan[facility]bal [facility]ician [facility] Work Phone: Start: 10-17-2023 End: 43-15-1417ikwcevalvrZQ Ayanna Vicente Work Phone: [facility] Work Phone: Start: 10-17-2023 End: 46-22-3563Nmgyvhj encounter procedureDO Ayanna Sakina Work Phone: [facility] [place] Work Phone: Start: 79-29-6784Tfc-patient / Non-visitDO Ayanna Vicente Work Phone: [facility] Work Phone: Start: 67-45-3155Rwr-patient / Non-visitDO Ayanna Vicente Work Phone: [facility] Work Phone: Start: 67-30-5937Okqngw flowsheetJohn S Mercer DPM Work Phone: noms SWS PODIATRYStart: 73-34-4542Axhtir flowsheetJohn S Mercer DPM Work Phone: noms SWS PODIATRYStart: 08-28-2023 End: 39-35-8385Dsajpmd encounter procedureJohn S Mercer DPM Work Phone: noms SWS PODIATRYComment on above:Onychomycosis (Primary Dx); 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); Pain in both feetStart: 08-18-2023 End: 63-60-7581lgkqgfhwquHitovna Springer Other [employer] Other start: 14-69-4777Cxulqjalm encounterHoma Mckeon FPG Referral CoordinatorStart: 08-12-2023 End: 34-09-5888udkerljrmtVefyfdi Springer Other [employer] Other start: 66-70-7373Kijwog outpatient new 45 minutes Homa SpringerFPG [facility] NeurosurgeryStart: 08-12-2023 End: 59-31-1693Vnriuim encounter procedureDO Ayanna Vicente Work Phone: [facility]-Start: 07-16-2023 End: 45-32-1980mcesuaynuyRduuw Girvin Other [facility] [employer] Other Start: 68-48-5799Mmgshkfrt encounterDavileonila VicenteFPG [facility] [place]Start: 05-12-2023 End: 18-36-1914lukpefhouuXoja Braun Other [facility] [employer] Other start: 04-09-0113Hsqkpijhw encounterDayimi Gong Referral CoordinatorStart: 05-07-2023 End: 85-49-7198vcsfsqzdnbTaoek Girvin Other [facility] [employer] Other Start: 44-14-6541Aeioxblqn encounterDaperi VicenteFPG [facility] [place]vueStart: 04-29-2023 End: 96-19-7243aeqtqzlwfwFmzqe Girvin Other [facility] [employer] Other Start: 14-86-2814Xsfjjmjdl encounterDavileonila VicenteFPG [facility] [place]vueStart: 04-25-2023 End: 66-78-0778gozenjylxeGypdn Girvin Other [facility] [employer] Other Start: 27-22-0875Xsvuorpya encounterDavileonila VicenteFPG [facility] [place]vueStart: 04-24-2023 End: 28-52-1483olprvyxsdxZN David Girvin Work Phone: [facility] Work Phone: Start: 04-24-2023 End: 76-83-8489Xhamrru encounter procedureDO Ayanna Vicente Work Phone: [facility] [place] Work Phone: start: 04-22-2023 End: 49-06-0764zlgbqxbvqpXwfta Girvin Other [employer] Other start: 85-41-9238Pccfkpenx encounterDavileonila Larson [facility] BellevueStart: 04-15-2023 End: 23-46-4663eemvgckopeNkmnc Girvin Other [employer] Other Start: 76-92-8467Djtsxq outpatient visit 25 minutes Ayanna Larson [facility] [place]vueStart: 04-14-2023 End: 33-00-1009lxklbiktxeTypfl Girvin Other [employer] Other Start: 48-87-8919Flbjnyrmb encounterDavileonila Larson [facility] [place]vueStart: 04-09-2023 End: 90-43-7759tnrmectonoUJ Ayanna Vicente Work Phone: [facility] Work Phone: Start: 04-09-2023 End: 00-84-3044Jpwersc encounter procedureDO Ayanna Vicente Work Phone: [facility] [place] Work Phone: Start: 02-25-2023 End: 35-78-7376eqyifbohcjMveil Girvin Other [employer] Other Start: 53-13-0286Dmgxmm outpatient visit 15 minutes Ayanna Larson [facility] BaggsevueStart: 02-11-2023 End: 47-76-3678Mzbmrue encounter procedureJENNIFER E JAX [facility] [place] start: 02-07-2023 End: 56-53-4571fdkukmeakzZzhtgLeonidas Lares MD Work Phone: Hematology/OncologyComment on above:CLL (chronic lymphocytic leukemia) (HCC) (Primary Dx)Start: 02-07-2023 End: 66-03-3755Vwnvlqn encounter Robbie Lares MD Work Phone: SANDUSKYStart: 01-16-2023 End: 02-27-4375rouyktcwppBzpsx Girvin Other [employer] Other Start: 23-00-7817Ksvtoojfe encounterDavid SakinaFPG [facility] [place]vueStart: 01-15-2023 End: 93-64-0998rfjizkthwkAxkgn Girvin Other [employer] Other Start: 72-47-5421Pynlrojgs encounterDavid GirabbiFPG [facility] [place]vueStart: 01-07-2023 End: 33-96-1431xwomsexjmaHusgh Girvin Other [employer] Other Start: 39-81-1451Bebvphqqw encounterDavid GirabbiFPG [facility] [place]vueStart: 01-06-2023 End: 64-31-5221nzjhyiyyesPzohg Girvin Other [employer] Other Start: 77-05-8469Mstsxrtwm encounterDavid GirabbiFPG Family [facility] [place]vueStart: 75-75-9232rlpcvbjdveCV AYANNA VICENTEFacility:H1 Start: 10-16-2022 End: 42-93-5925eahqdqhkagVutkq Girvin Other [employer] Other Start: 53-95-2683Jrjplxmfp encounterDavid GirabbiFPG Family Medicine BellueStart: 10-02-2022 End: 08-59-5213mhhmrwwcpdCcjde Girvin Other [facility] [employer] Other Start: 07-13-4859Tudnswdcb encounterDaperi Larson [facility] tart: 09-30-2022 End: 90-41-5996dyimzcxiiaCTMarisol Vicente Work Phone: [facility] Work Phone: Start: 09-30-2022 End: [id number] encounter procedureDO Ayanna Vicente Work Phone: [facility] [address] [place] Work Phone: Start: 09-24-2022 End: 17-37-5749lbxvouhwzfQJMarisol Vicente Work Phone: [facility] Work Phone: Start: 09-24-2022 End: 46-94-6029Mxrgrjg encounter procedureDO Ayanna Vicente Work Phone: [facility] [address] Work Phone: Start: 09-02-2022 End: 24-68-2881cqrrcodydkAyfon Girvin Other [place] [facility] Other Start: 96-37-6211Eufpoyzlg encounterDaperi Larson [place] [facility]Start: [facility]2022 End: 38-50-4433epcpecuimdAMMarisol Vicente Work Phone: [facility] Work Phone: Start: 08-29-2022 End: 93-57-7109Udibrfj encounter procedureDO Ayanna Vicente Work Phone: [facility] Work Phone: Start: 08-29-2022 End: 66-78-9283Pwqvtzv encounter procedureDO Ayanna Vicente Work Phone: [facility] [address] Work Phone: Start: 08-12-2022 End: 82-37-4975mbfbexixlyXJ David Girvin Work Phone: [facility] Work Phone: Start: 08-12-2022 End: 33-40-6684Cvccbvg encounter procedureDO Ayanna Vicente Work Phone: [facility] [address] [place] Work Phone: Start: 08-05-2022 End: 16-28-1927bhoqrmbdhhMsyrt Girvin Other [place] [employer] Other Start: 52-20-2160Nchhtcgnm encounterAyanna VicenteDIGNITY [facility] Family Medicine [place]vueStart: 82-86-1693yblmhvshhzWrayo Clark Girvin Facility:[id number]: 07-24-2022 End: 06-95-0320itfxozlfmgERMarisol Vicente Work Phone: [facility] Work Phone: Start: 07-24-2022 End: 44-62-3726Rwhtzrs encounter Nicole Vicente Work Phone: [facility]ro[facility] Work Phone: Start: 08-78-6939Ghhmnyqpn encounterSantos Lares MD Work Phone: Cancer Appts MCComment on above:Referral Information (ENT)Start: 07-19-2022 End: 91-47-1979cthresejqgAwhntLeonidas Lares MD Work Phone: Hematology/OncologyComment on above:CLL (chronic lymphocytic leukemia) (HCC) (Primary Dx); Right ear pain; Rib pain; Axillary adenopathy; Other signs and symptoms in breast ; Encounter for screening mammogram for malignant neoplasm of breastStart: 07-19-2022 End: 52-42-4362Fscscki encounter Robbie Lares MD Work Phone: SANDUSKYStart: 05-31-2022 End: 36-80-2072nnzgvnxffoSndon Girvin Other [employer] Other Start: 13-83-7061Ltitlwctc encounterDavid SakinaFPCoco Family Medicine BellevueStart: 05-14-2022 End: 23-30-1465qcgzaxhptaComog Girvin Other [employer] Other Start: 45-53-7079Kvujhpyeq encounterDavid SakinaFPG Family Medicine [place]vueStart: 04-24-2022 End: 22-39-7796acrixugivpOtdxp Girvin Other [place] [employer] Other Start: 78-39-9755Pxjpksvvu encounterDavid SakinaFPG Family Medicine [place]vueStart: 31-13-6795Komprwuvi encounterDavid GirabbiFPG Family Medicine [place]vueStart: 04-23-2022 End: 33-23-1920htyrbzkewhJS David Girvin Work Phone: [employer] Other Start: 04-23-2022 End: 52-72-6305Iqfwkrl encounter procedureDO Ayanna Vicente Work Phone: [facility] CampusStart: 04-18-2022 End: 36-16-3800fiojnlvrlnRtkpb Karamlou MD Work Phone: Hematology/OncologyComment on above:CLL (chronic lymphocytic leukemia) (HCC) (Primary Dx)Start: 04-18-2022 End: 89-67-6606Jivgqcc encounter Robbie Lares MD Work Phone: SANDUSKYStart: 04-10-2022 End: 94-48-6620yzbuwbqjncCmwrj Girvin Other [employer] Other Start: 43-82-2534Pbbqvxvgy encounterDaperi Larson Family Medicine [place]vueStart: 24-64-3668Nqxuggmla encounterRedenissericcardo Reddycortez Hematology/OncologyComment on above:Care Coordination (Results)Start: 04-04-2022 End: 18-54-6769psyuhfgnntQqraiLeonidas Lares MD Work Phone: Hematology/OncologyComment on above:Lymphocytosis (Primary Dx)Start: 04-04-2022 End: 14-79-7772Xjbudyf encounter Robbie Lares MD Work Phone: SANDUSKYStart: 04-02-2022 End: 84-36-3503ltawpmnpihFyvsa Girvin Other [facility] [employer] Other Start: 21-06-3610Wkkaxw outpatient visit 40 minutes Ayanna Larson [facility] [place]vueStart: 04-01-2022 End: 94-77-4550Ctasxoj encounter procedureDO Ayanna Vicente Work Phone: [facility] CampusStart: 03-26-2022 End: 70-86-3666pobqxfaaohKgzlh Girvin Other [facility] [employer] Other Start: 86-36-5932Aldvmzfpr encounterDaperi Larson Family Medicine [place]vueStart: 03-19-2022 End: 60-38-7182xknhcwxkrgFvfpc Girvin Other [employer] Other Start: 42-28-5563Equhbwkxw encounterDaperi Larson Family Medicine ZoeevueStart: 03-13-2022 End: 18-13-6118bkxvtefifzLsdmf Girvin Other [facility] [employer] Other Start: 58-17-8174Kqdwnfghv encounterDavid GirvinFPG Family Medicine [place]vueStart: 03-08-2022 End: 77-96-7712tkprtecgftXriol Girvin Other [facility] [employer] Other start: 07-05-8984Mhtxqhfcd encounterDavid GirvinFPG [facility] [place]vueStart: 03-07-2022 End: 38-41-8008xpahlucunoRmzkw Girabbi Other [facility] [employer] Other start: 62-90-9417Xsyunrewi encounterDavid GirvinFPG Family Medicine [place]vueStart: 02-28-2022 End: 55-07-3963ivjpyaovpsOfqmq Sakina Other [facility] [employer] Other Start: 34-83-4196Vzbokdesi encounterDavid GirvinFPG [facility] [place]vueStart: 02-21-2022 End: 63-75-7124hpxwqjdjstUiwiz Sakina Other [facility] [employer] Other start: 53-74-8654Stdtomxbs encounterDavid GirvinFPG Family Medicine [place]Start: 02-18-2022 End: 10-44-9800ltuddzyvdbUyiaw Sakina Other [facility] [employer] Other start: 30-26-2196Wwiaothoc encounterDavid GirvinFPG Family Medicine [place]vueStart: 02-15-2022 End: 69-13-7496bdtsxoyevkDfdvh Girvin Other [employer] Other start: 21-33-8871Tnrwnnoyg encounterDavid GirvinFPG [facility] [place]vueStart: 02-11-2022 End: 36-40-7134dmmpdxhwweSviay Sakina Other [employer] Other Start: 39-74-8541Kpvrjbziv encounterDavid SakinaFPG [facility] [place]vueStart: 02-06-2022 End: 18-07-2928mxnarpwnndHsdoy Sakina Other [employer] Other Start: 01-20-1465Dcvvhs outpatient visit 25 minutes Ayanna Larson [facility] [place]vueStart: 01-31-2022 End: 08-58-7791ptgpnjtzalGblec Sakina Other [employer] Other Start: 18-76-2998Amyxqvrol encounterDavid SakinaFPG Family Medicine [place]vueStart: 01-15-2022 End: 28-34-5483Pfeocyxcqj and management of inpatientDO Ayanna Vicente Work Phone: [facility] [place] RehabStart: 01-13-2022 End: 05-59-3789Kdughbhzqa and management of inpatientDO Ayanna Vicente Work Phone: [facility] [place] Med SurgStart: 01-07-2022 End: 65-43-5362lsfmvrlwatAyxdg Sakina Other [employer] Other Start: 37-67-9178Pgspznuvh encounterDavid SakinaFPG Family Medicine [place]vueStart: 12-27-2021 End: 95-60-9446iysoyzelqoEmfpc Sakina Other [employer] Other Start: 83-27-9125Qldgjr outpatient visit 15 minutes Ayanna Larson [facility] [place]vueStart: 12-19-2021 End: 86-46-1655bmwjbxornuFudxl Sakina Other [employer] Other Start: 55-04-9798Kayzamvha encounterDavid GirvinFPG Family Medicine [place]vueStart: 12-18-2021 End: 16-59-7535rjtlmyjwasGhdop [place] Other [employer] Other Start: 47-42-6055Lvrkqtdcd encounterDavid HykesFPG Referral CoordinatorStart: 12-17-2021 End: 78-72-6286yvshabajovAndzj [place] Other [employer] Other Start: 29-83-9774Koqqnq outpatient new 45 minutesDavid HyDayaG GastroenterologyStart: 11-12-2021 End: 87-33-1817arpuworyzkDsotu Sakina Other [employer] Other Start: 28-09-2207Kbftkmmji encounterDavid GirabbiFPG Family Medicine [place]vueStart: 10-02-2021 End: 69-70-4805xykifofshbMtdcb Girabbi Other [employer] Other Start: 01-51-7898Uqwuqiqdh encounterDavid GirvinFPG [facility] [place]vueStart: 10-01-2021 End: 98-02-0394hzthjxhkjrEyiro Girvin Other [employer] Other Start: 57-54-6035Olrfzmryg encounterDavid GirvinFPG [facility] [place]vueStart: 09-17-2021 End: 36-30-4632ihflqguhkkZbebd Girvin Other [employer] Other Start: 92-71-6203Mftxwnfpp encounterDavid GirvinFPG [facility] [place]vueStart: 09-13-2021 End: 21-74-7190ptzvdquxybFriuq Sakina Other [employer] Other Start: 63-54-5207Mwsuupiiz encounterDavid GirabbiFPG [facility] [place]vueStart: 09-12-2021 End: 35-29-3573mbarmvdtmlMfljj Girabbi Other [facility] [employer] Other Start: 23-01-8172Rlwolivmq encounterDavid GirabbiFPG Family Medicine [place]vueStart: 07-18-2021 End: 67-35-9187actdpwskhcZblyd Girabbi Other [facility] [employer] Other Start: 27-49-5422Rfcjshhsc encounterDavid GirabbiFPG Family Medicine [place]vueStart: 06-18-2021 End: 15-94-5925cljqdrrrpvXkihh Sakina Other [facility] [employer] Other Start: 40-69-2510Yxizblewg encounterDavid GirabbiFPG Family Medicine BaggsevueStart: 28-15-0870Ickykkskf encounterDavid GirabbiFPG Family Medicine [place]vueStart: 70-02-1481Jwwlum outpatient visit 25 minutesDavileonila VicenteFPG Family Medicine [facility] ClinicueStart: 02-08-2021 End: 81-46-5622Rpugqm Brittanie Espinoza PA-C Work Phone: OrthopaedicsComment on above:Pain in both knees, unspecified chronicity (Primary Dx) Procedures DateProcedureProcedure DetailPerforming ClinicianStart: 22-47-3918Rltgr chest X-rayDaperi Vicente DO Work Phone: Start: 45-85-6292BOYYOYLBXJB SKIN LESIONRylee Missy WALDROP Work Phone: Start: 91-81-7529Zngmc Chuy Vicente DO Work Phone: Start: 38-83-4458RJH THYROID STIM HORMONEChristopher Aundrea DO Work Phone: Start: 05-14-4613Hefhf X-ray of left hipDaperi Vicente DO Work Phone: Start: 74-78-5289C-ray of left knee, four viewsDaperi Vicente DO Work Phone: Start: 79-28-9047Guyqqpwrz mammography of bilateral breastsDO Ayanna Vicente Work Phone: Start: 75-94-2644Glvmocwr identified in Urine by Alejandro Vicente Work Phone: Start: 98-25-2106Jxauc Chuy Vicente DO Work Phone: Start: 36-54-0069Eeygr Alejandro Vicente Work Phone: Start: 03-17-8683Kahmo x-ray of pelvis and lower extremityDO Ayanna Vicente Work Phone: Start: 75-41-1135C-ray of lumbar spine, four viewsDO Ayanna Vicente Work Phone: Start: 03-40-0830B-ray of right kneeDO Ayanna Vicente Work Phone: Start: 86-76-1996JPB of cervical spine without contrastDO Ayanna Vicente Work Phone: Start: 28-67-5659LC pre/post mri xrayDO Ayanna Vicente Work Phone: Start: 70-09-9285Ntzvesqkazmirpb of left breastDO Ayanna Vicente Work Phone: Start: 74-40-8092Zrazcsial mammographyDO Ayanna Vicente Work Phone: Start: 05-25-3064IE lumbar spine wo conDO Ayanna Vicente Work Phone: Start: 45-91-1713TW pre/post mri xrayDO Ayanna Vicente Work Phone: start: 25-65-6043Nzkgj chest X-rayDO Ayanna Vicente Work Phone: Start: 89-85-7172NRB + DIFFSantos Lares MD Work Phone: Start: 27-76-4123Seayxvf dehydrogenase ldhSantos Lares MD Work Phone: Start: 93-31-8533Hmfjlm scan of lower limb veinsDO Ayanna Vicente Work Phone: Start: 15-25-1562Ivkmb X-ray of right hipDO Ayanna Vicente Work Phone: Start: 79-79-7691Wabsjfhhwcdsfsn of bilateral kidneys DO Ayanna Vicente Work Phone: Start: 87-24-2932OF cervical spine without contrastDO Ayanna Vicente Work Phone: Start: 84-98-5563WG of head without contrastDO Ayanna Vicente Work Phone: Start: 13-40-3564Kprjg chest X-rayDO Ayanna Vicente Work Phone: Start: 28-17-6051Xlaab X-ray of right wristDO Ayanna Vicente Work Phone: Start: 78-19-1060Vwpzj X-ray of right tibia and right fibulaDO Ayanna Vicente Work Phone: Start: 50-27-6177Ihpfplnvh of botulinum toxin type A into detrusor muscle of urinary bladderJENNJERMAINE JAX Start: 94-41-5293XnhrzzopoiWWQVNCVQ JAX Start: 81-81-6343Zifavfj of operative procedure on lumbar spinal structureJENNIFER JAX Start: 24-63-0267Byttaylurgit of kneeJENNIFER JAX Start: 74-98-2331Kzqqbxxvrvqp of kneeJENNIFER JAX Start: 43-35-9112Qmhdjht of hernia repairJENNIFER JAX Start: 17-41-9891DytbyinxzauvXYPDEGPU JAX Start: 10-01-2075Wfrunzw of hernia repairJENNIFER JAX Start: 07-14-1984H/O: hysterectomyJENNIFER JAX Bilateral inguinal hernia repairJENNIFER JAX Blood culture for bacteria, including anaerobic screen DO Ayanna Vicente Work Phone: ColonoscopyJENNIFER JAX Extraction of cataractJENNIFER JAX History of hernia repairJENNIFER JAX SARS Antigen (LFIA)DO Ayanna Vicente Work Phone: Urine cultureDO Ayanna Vicente Work Phone: Plan of Treatment DateCare ActivityDetailAuthorStart: 61-42-8829Ckmca microalbumin profile DTaP,Tdap,Td Vaccine (2 - Td or Tdap)[facility]art: 26-83-2083Nxbuhjqt ScreeningDiabetes ScreeningSelect Medical Specialty Hospital - Columbustart: 47-69-3904Kohgdhkr Screening Diabetes ScreeningSelect Medical Specialty Hospital - Columbustart: 16-23-6017AMAHRGRR SCREENDIABETES SCREENSelect Medical Specialty Hospital - Columbustart: 12-19-2025 End: 69-53-6968Efkpcua encounter qdecxjamx33/08/2026 11:00 AM EDT Office Visit Rheumatology [address] [place], [place] [id number] [place] [address] [facility] [place], [place] [id number] Return in about 1 year (around 12/17/2025).RheumatologyComment on above:Return in about 1 year (around 12/17/2025).Start: 64-09-4647XXKPDKVK SCREENDIABETES SCREENSelect Medical Special[facility] Hospital - Columbustart: 04-18-2025 End: 01-44-4852Gkhtzxj encounter mezykaqof14/06/2025 2:30 PM EDT Office Visit [facility] [address] [place] [phone] Tate Louis PA [address] [place] [address] ArrivedNOMS Bah DermatologyComment on above:ArrivedStart: 95-97-7452Gmbpalzsm vaccinationInfluenza Vaccine (#1)[facility] HealthcareStart: 01-28-2025 End: 81-61-1300Mzyaakg encounter ljcdqkgyt35/18/2025 10:30 AM EDT Office Visit [facility] [place] [address] [place] [address] Moe Betts DO [address] [place] [address] GENSStart: 11-25-2024 End: 32-52-6055Lddtpyt encounter hyeudymlm59/15/2025 11:20 AM EDT Office Visit Rheumatology [address] [place] [address] [place] [address] [place] [address] 6 month follow upRheumatologyComment on above:6 month follow upStart: 11-24-2024 End: 82-13-6042Kmzdvu-up qthscgetp78/14/2025 10:30 AM EDT Visit (SP) Office Hematology/Oncology [address] [place] [address] Chad Freitas MD [address] [facility] [place] [address] 6 month follow upHematology/OncologyComment on above:6 month follow upStart: 11-24-2024 End: 50-81-9689Iuqtrys encounter yvzrxgzbj89/14/2025 10:15 AM EDT Office Visit [facility] [address] [place] [address] [place] [address] 6 month follow upNortInsight Surgical Hospital LaboratoryComment on above:6 month follow upStart: 11-15-2024 End: 03-72-3932Hasibwc encounter yrktedfuq33/05/2025 11:00 AM EDT Office Visit Rheumatology [address] [place] [address] [place] [address] [facility] [place], [place] [id number] 6 month follow upRheumatologyComment on above:6 month follow upStart: 91-82-2398Zvbiwch referralJoint Township District Memorial Hospital Work Phone: Start: 64-91-0606Qlphm-19 Vaccine ( season) Covid-19 Vaccine ()[facility]art: 98-90-4461Smiwq [facility]tart: 11-16-6413Qrcgqkil identified in Urine by CultureUrine [facility] Hospitaltart: 08-10-2024 End: 59-06-4765Lbybu [facility] Hospitaltart: 08-09-2024 End: 94-70-9388Llrmfcx encounter procedureNOWILSON MEMORIAL [facility] ROUTEComment on above:ArrivedStart: 08-04-2024 End: 88-80-6320Hjylkqt encounter /22/2025 11:30 AM EST Office Visit [facility] [address] [address] [place] [phone] NEUROLOGYStart: 73-51-8190Lktkuml Directive DiscussionAdvance Directive DiscussionClekettering health behavioral medical center ClinicStart: 06-28-2024 End: 49-92-6916Mujudqx encounter procedureNOMS ST NEUROLOGYComment on above: Cognitive impairmentStart: 06-23-2024 End: 38-31-7387Sypzxxu encounter gfxreajow15/11/2024 2:30 PM EST Consult [facility] [address] [facility] [address] [place] [phone] Moe Betts DO [address] [facility] [address] [place] [address] GENSStart: 06-17-2024 End: 55-20-6158Rzgczltwv (Vitamin B12) [Mass/volume] in Serum or PlasmaVitamin B12 Lab Routine Cognitive impairment Long-term use of high-risk medication Expected: 06/17/2024 (Approximate), Expires: 06/17/2025[facility] Work Phone: comment on above:Expected: 06/17/2024 (Approximate), Expires: 06/17/2025Start: 06-17-2024 End: 60-00-2073Vmexnkm encounter lrpttpdio37/05/2024 2:00 PM EST Office Visit [address] [address] [place] [phone] Babita Guillaume, DO [address] [place] [address] ArrivedNOWILSON MEMORIAL HOSPITAL ROUTEComment on above:ArrivedStart: 06-17-2024 End: 93-19-5228Hcpiafodgxt [Units/volume] in Serum or PlasmaTSH Lab Routine Cognitive impairment Long-term use of high-risk medication Expected: 06/17/2024 (Approximate), Expires: 06/17/2025NO[facility] HealthcareComment on above:Expected: 06/17/2024 (Approximate), Expires: 06/17/2025Start: 42-01-4491Xxzmnud [facility] Work Phone: Start: 47-73-4124Nnqerlch identified in Urine by CultureUrine CultureHighland District Hospitaltart: 37-82-9954Ezwzwoq referralJoint Township District Memorial Hospital Work Phone: Start: 54-87-8338Wpnftgv referralJoint Township District Memorial Hospital Work Phone: Start: 11-17-2023 End: 04-38-6996Snypfcu encounter nmusnklbw62/06/2024 1:15 PM EDT Procedure Visit [facility] [address] [place] [phone] Butch Smith, DPWilfredo [address] [place] [address] [facility] PODIATRYStart: 45-52-6568Sohxzzjo identified in Urine by [facility] Hospitaltart: 43-65-7193Xkbsucce Vaccine (2 of 2)Shingrix Vaccine (2 of 2)[facility]art: 08-10-2023 End: 41-67-8650ABP W Auto Differential panel - BloodCBC + DIFF Lab Routine CLL (chronic lymphocytic leukemia) ([facility]) Expected: 08/10/2023 (Approximate),Expires: 10/10/2023[facility] Work Phone: Comment on above:Expected: 08/10/2023 (Approximate), Expires: 10/10/2023Start: 08-10-2023 End: 82-20-1831Ifrqaaooshszr metabolic 2000 panel - Serum or PlasmaCOMP METABOLIC PANEL Lab Routine CLL (chronic lymphocytic leukemia) ([facility]) Expected: 08/10/2023 (Approximate), Expires: 10/10/2023[facility] Work Phone: Comment on above:Expected: 08/10/2023 (Approximate), Expires: 10/10/2023Start: 40-34-2593Quaykvo Directive DiscussionAdvance Directive DiscussionSelect Medical Specialty Hospital - Columbustart: 15-78-4415Vubkxdmrk vaccination [facility]art: 01-16-2023 End: 03-99-9439CON W Auto Differential panel - BloodCBC + DIFF Lab Routine CLL (chronic lymphocytic leukemia) ([facility]) Expected: 01/16/2023 (Approximate),Expires: 03/18/2023[facility] Work Phone: Comment on above:Expected: 01/16/2023 (Approximate), Expires: 03/18/2023Start: 01-16-2023 End: 21-04-1499Vpwqtocuxjjlb metabolic 2000 panel - Serum or PlasmaCOMP METABOLIC PANEL Lab Routine CLL (chronic lymphocytic leukemia) ([facility]) Expected: 01/16/2023 (Approximate), Expires: 03/18/2023[facility] Work Phone: Comment on above:Expected: 01/16/2023 (Approximate), Expires: 03/18/2023Start: 92-67-4528PRHLD-19 VACCINE (5 - Pfizer series)COVID-19 VACCINE (5 - Pfizer series)[facility]: 07-26-2022 End: 75-23-9469Lx breast uni real time with image limitedUS BREAST LTD LT Radiology Routine Axillary adenopathy Other signs and symptoms in breast Expected:07/26/2022, Expires: 08/18/2023[facility] Work Phone: Comment on above:Expected: 07/26/2022, Expires: 08/18/2023Start: 07-19-2022 End: 49-55-3831CYE W Auto Differential panel - BloodCBC + DIFF Lab Routine CLL (chronic lymphocytic leukemia) ([facility]) Expected: 07/19/2022 (Approximate),Expires: 09/18/2022[facility] Work Phone: Comment on above:Expected: 07/19/2022 (Approximate), Expires: 09/18/2022Start: 07-19-2022 End: 67-72-7983Tqbuwwtjejnkk metabolic 2000 panel - Serum or PlasmaCOMP METABOLIC PANEL Lab Routine CLL (chronic lymphocytic leukemia) ([facility]) Expected: 07/19/2022 (Approximate), Expires: 09/18/2022[facility] Work Phone: Comment on above:Expected: 07/19/2022 (Approximate), Expires: 09/18/2022Start: 07-19-2022 End: 56-16-6255Yywavym dehydrogenase [Enzymatic activity/volume] in Serum or PlasmaLD LACTATE DEHYDRO Lab Routine CLL (chronic lymphocytic leukemia) (HCC) Expected: 07/19/2022 (Approximate), Expires: 09/18/2022[facility] Work Phone: Comment on above:Expected: 07/19/2022 (Approximate), Expires: 09/18/2022Start: 73-87-3136SBOOSAP DIRECTIVE DISCUSSIONADVANCE DIRECTIVE DISCUSSIONSelect Medical Specialty Hospital - Columbustart: 30-06-0882UFVVTVMDIK ASSESSMENT DEPRESSION ASSESSMENTSelect Medical Specialty Hospital - Columbustart: 04-04-2022 End: 26-19-3268Pxww-2-Microglobulin [Mass/volume] in Serum or PlasmaFlower Hospital Work Phone: Comment on above:Expected: 04/04/2022, Expires: 06/04/2022tart: 04-04-2022 End: 83-12-9651Ecdxpeo hepatitis differentiation between hepatitis B and C virus panel - Serum or [facility] Work Phone: Comment on above:Expected: 04/04/2022, Expires: 06/04/2022tart: 04-04-2022 End: 10-18-7308DOPU CYTOMETRY PERIPHERAL BLOOD LEUK/LYMPH (FCLEUK)[facility] Work Phone: Comment on above:Expected: 04/04/2022, Expires: 06/04/2022tart: 79-61-5896Blgvavhfh vaccinationINFLUENZA (#1)[facility] Start: 87-81-6784HumpwlfmnHighland District Hospitaltart: 33-10-1124Rjmjlclnmbzl [facility] Hospitaltart: 02-52-9153Nflrwvpa admissionHighland District Hospitaltart: 22-55-4223Aowzelin to clinical allergistHighland District Hospitaltart: 85-53-4730WpwvlfnyrTri[facility] Ctr Work Phone: Start: 37-23-5526Sfvbehgb admissionTrihealth Ctr Work Phone: Start: 03-23-4938TNMDT-19 VACCINE (4 - Booster for Pfizer series)COVID-19 VACCINE (4 - Booster for Pfizer series)[facility] Start: 29-68-2277EOYUFWX DIRECTIVE DISCUSSIONADVANCE DIRECTIVE DISCUSSION [facility]: 60-47-8963THHIPKDIOU ASSESSMENTDEPRESSION ASSESSMENT [facility]: 13-48-7826Yjlpdljlh vaccinationINFLUENZA (#1)[facility]: 74-74-1717JIXXEHB DIRECTIVE DISCUSSIONADVANCE DIRECTIVE DISCUSSION [facility]: 98-86-8827ITKL DENSITYBONE DENSITYSelect Medical Specialty Hospital - Columbustart: 82-45-7069JWZLPQTVZNXF: 65+ (1 - PCV)PNEUMOCOCCAL: 65+ (1 - PCV)[facility] Start: 43-58-0638KWHICTXLM AGE 65 AND OVER WITH 5YR LOOKBACK (#1)PNEUMOVAX AGE 65 AND OVER WITH 5YR LOOKBACK (#1)[facility]: 70-97-8756Njleyylef for osteoporosisBone Density ScreeningSelect Medical Specialty Hospital - Columbustart: 95-06-0613Fyxqrpmtc for malignant neoplasm of colonSelect Medical Specialty Hospital - Columbustart: 88-33-7985JUINJZUO VACCINE (1 of 2)SHINGRIX VACCINE (1 of 2)[facility]: 75-44-4374XDYJAVNK SCREENDIABETES SCREENSelect Medical Specialty Hospital - Columbustart: 98-10-8029QBQHOHCX VACCINE (1 of 2) SHINGRIX VACCINE (1 of 2)[facility]: 22-62-2193Pyxpv microalbumin profileDTAP,TDAP,TD (1 - Tdap)[facility]: 01-51-9259Umqjfib Screening Anxiety ScreeningSelect Medical Specialty Hospital - Columbustart: 27-88-4916Tpanhuhbhq ScreeningDepression ScreeningSelect Medical Specialty Hospital - Columbustart: 57-02-3211Xumliiukh B surface antibody levelLDL CholesterolSelect Medical Specialty Hospital - Columbustart: 73-08-2813QSASVZJRF C SCREENINGHEPATITIS C SCREENINGSelect Medical Specialty Hospital - Columbustart: 22-65-1217Kwfgx depression screening assessment DEPRESSION SCREENINGSelect Medical Specialty Hospital - Columbustart: 34-99-9486LKJRT-19 VACCINE (1)COVID- 19 VACCINE (1)[facility]: 18-67-4815Snpibvey foot examinationDiabetic Foot ExamSelect Medical Specialty Hospital - Columbustart: 36-00-8461Kpfqqbcq screeningDilated Retinal ExamSelect Medical Specialty Hospital - Columbustart: 56-54-8465Oljsbceis B screeningUrine Albumin:Creatinine RatioGrand Lake Joint Township District Memorial Hospitalrt: 49-02-3207XHVOMDUDCSYB: 65+ (1 - PCV)PNEUMOCOCCAL: 65+ (1 - PCV)[facility] [facility] Hospitalrt: 83-25-6158Moeccavlei A1c rpowvybtuwmBoM3YHofdgthmi ClinicBacteria identified in Urine by CultureThe Jewish HospitalCBC W Auto Differential panel - BloodCBC + DIFF Lab Routine Lymphocytosis 04/04/2022 11:00 AM [facility] Work Phone: CBC W Auto Differential panel - BloodCOMPLETE BLOOD COUNT AND DIFFERENTIAL Lab Routine CLL (chronic lymphocytic leukemia) (HCC) 05/26/2024 2:20 PM [facility] Work Phone: comprehensive metabolic 1999 panel - Serum or Plasma The [facility] HospitalComprehensive metabolic 1999 panel - Serum or PlasmaThe Jewish HospitalComprehensive metabolic 1999 panel - Serum or PlasmaThe Jewish HospitalFLOW CYTOMETRY PERIPHERAL BLOOD LEUK/LYMPH (FCLEUK)FLOW CYTOMETRY PERIPHERAL BLOOD LEUK/LYMPH (FCLEUK) Lab Routine Lymphocytosis 04/04/2022 11:02 AM [facility] Work Phone: FLOW SLIDEFLOW SLIDE Lab Routine Lymphocytosis 04/04/2022 11:02 AM [facility] Work Phone: Glucose measurement estimated from glycated hemoglobin The Jewish HospitalHepatitis B virus core Ab [Presence] in Serum HEP B CORE AB TOTAL Lab Routine Lymphocytosis 04/04/2022 11:00 AM [facility] Work Phone: Hepatitis B virus surface Ab [Presence] in SerumHEP B SURF AB QUAL Lab Routine Lymphocytosis 04/04/2022 11:00 AM [facility] Work Phone: Hepatitis B virus surface Ab [Presence] in Serum by ImmunoassayHEP B SURF AG SCRN Lab Routine Lymphocytosis 04/04/2022 11:00 AM EDT [facility] Work Phone: Hepatitis C virus Ab [Presence] in SerumHEP C AB IA W/CONF SCRN Lab Routine Lymphocytosis 04/04/2022 11:[facility] End: 30-11-9179YOR SCREENING W TOMOMAM SCREENING W NEYDA Radiology Routine Encounter for screening mammogram for malignant neoplasm of breast 1 Occurrences starting 07/19/2022 until 08/18/[facility]23[facility] Work Phone: Comment on above:1 Occurrences starting 07/19/2022 until 08/18/2023MG Breast - bilateral ScreeningThe [facility] Hospital MG Breast - bilateral ScreeningThe Jewish HospitalPatient EducationWrist Fracture (DC)[facility] Work Phone: [facility] referral[facility] Work Phone: End: 75-80-4748Cxopaiqrgq exam knee complete 4/more viewsXR KNEE GENERAL 4V AP BOTH/PA BOTH/LAT/MERC BILAT Radiology Routine Pain in both knees, unspecified chronicity 1 Occurrences starting 02/08/2021 until 2[facility] Comment on above:1 Occurrences starting 02/08/2021 until 03/10/2022 End: 46-42-1480Vsvvyplyka examination pelvis 1/2 viewsXR PELVIS 1V AP Radiology Routine Pain in both knees, unspecified chronicity 1 Occurrences starting 02/08/2021 until 2[facility]Comment [facility] above:1 Occurrences starting 02/08/2021 until 2Renal function 2000 panel - Serum or Plasma The [facility] HospitalRenal function 2000 panel - Serum or Plasma [facility] Hospitalerum fructosamine measurementTrihealth Ctr Work Phone: Urine [facility] HospitalUrine [facility] HospitalUS Kidney - bilateralThe Jewish HospitalXR Chest 2 [facility]XR Hip - left 2 [facility] HospitalXR Knee - left 4 ViewsThe Jewish Hospital End: 80-92-8336LT RIBS/CHEST 3V AP RIB/OBLS/CXR LEFTXR RIBS/CHEST 3V AP RIB/OBLS/CXR LEFT Radiology Routine Rib pain 1 Occurrences starting 07/19/2022 u [facility] Work Phone: Comment on above:1 Occurrences starting 07/19/2022 until 4[facility] Immunizations Immunization DateImmunizationNotesCare KqsnrdlzRsoxapzj19-17-4330RIVJF-96 (PFIZER) [id number] 12Y and olderDavid Sakina DO Work Phone: [facility]09-06-2024influenza virus vaccine, unspecified formulationJEJULIETTE RANDOLPH [facility]09-06-2024influenza, high dose seasonal, preservative-freeDavid Sakina DO Work Phone: [facility]12-11-2023COVID-19 (PFIZER) 12Y and olderThe [facility]12-11-2023 Pneumococcal Conjugate Vaccine, 20 [facility] 10-24-2749HID, preF3, adj, pfThe Jewish Hospital12-11-2023zoster vaccine recombinantThe [facility] Hospital10-03-2023influenza, high dose seasonal, preservative-freeDavid Sakina Other [facility] [employer] Other [id number] QIV High-Dose 65YR+[facility]10-03-2023influenza virus vaccine, unspecified formulationJoliss CortezMercer DPM Work Phone: [facility]10-10-2022 pneumococcal polysaccharide vaccine, 23 valentDavid Sakina Other [facility]10-06-2022COVID-19 mRNA Bivalent Booster (Pfizer)[facility]2022tetanus toxoid, reduced diphtheria toxoid, and acellular pertussis vaccine, adsorbed Ayanna Vicente Other [facility]11-19-2021COVID-19 Vaccine Pfizer - Documentation Purposes OnlyDavileonila Vicente Other [facility]10-13-2021influenza virus vaccine, unspecified formulationJENNIFER JAX [facility]09-22-2021influenza, high dose seasonal, preservative-freeDavileonila Vicente Other [place] [employer] Other [id number] virus vaccine, unspecified formulationDO Ayanna Vicente Work Phone: [facility]09-22-2021Influenza, High-dose Seasonal, Quadrivalent, Preservative FreeJohn Mercer DPM Work Phone: [facility] LawnQhwatpnqti38-59-9741SZHVW-98 Vaccine Pfizer - Documentation Purposes OnlyDaperi Vicente Other [facility]02-19-2021SARS-CoV-2 (COVID-19) mRNA-5905 vaccineJENNIFER JAX [facility]01-29-2021COVID-19 Vaccine Pfizer - Documentation Purposes OnlyDavileonila Vicente Other [facility]01-29-2021SARS-CoV-2 (COVID-19) mRNA-1273 vaccineJENNIFER JAX [facility]09-01-2020influenza virus vaccine, unspecified formulationJENNIFER JAX [facility]01-01-2020pneumococcal conjugate vaccine, 13 valentThe [facility] Hospital09-21-2019influenza virus vaccine, unspecified formulationJENNIFER JAX [facility]09-21-2019Seasonal trivalent influenza vaccine, adjuvanted, preservative freeThe Jewish Hospital09-21-2019pneumococcal polysaccharide vaccine, 23 valentDavid Girvin Other [facility]09-21-2019influenza, seasonal, injectableDavid Girvin Other [facility]11-12-2018influenza virus vaccine, unspecified formulationJENNIFER JAX [facility]11-12-2018Influenza, injectable, Madin Anjelica Canine Kidney, preservative free, quadrivalentThe Jewish Hospital11-12-2018influenza, seasonal, injectableDavid Girvin Other [facility]10-10-2018Kenalog -40 mgDavid Girvin Other [place] [employer] Other Payers DatePayer CategoryPayerPolicy [id number]-ogw [id number] [id number] Health [facility] SUPPLEMENT [id number] 2020-Present Indemnity [id number] Health [id number] 2007MedicareMEDICARE MEDICARE A AND B [id number] 2007-Present [place] [id number] [id number] 2007Medicare 1.2.840.8574[id number] [id number] [id number] 2.16.840.9.648673.0735-21-1942 [id number] 2.16.840.1.935155.3.57[id number] 2.16.840.1.166942.3.57[id number] 2.16.840.1.145775.3.579.[id number] 2.16.840.1.062844.3.579.[id number] 2.16.840.1.475985.3.579.2.7[id number] 2.16.840.1.224332.3.57[id number] 2.16.840.1.291930.3.579.2.1[id number] 2.16.840.1.495880.3.579.[id number] 2.16.840.1.142671.3.57[id number] 2.16.840.1.984000.3.579.[id number] 2.16.840.1.704355.3.579.2.97384-22-8984Tsheise296519210 2.16.840.1.039504.3.579.2.04781-55-1081Ptlhadv856474195 2.16.840.1.749247.3.579.2.[id number] 2.16.840.1.587840.3.579.2.2[id number] 2.16.840.1.927190.3.579.[id number] 2.16.840.1.202780.3.579.2.0[id number] 2.16.840.1.232751.3.579.2.71405-54-2084Qaczyxw821649757 2.16.840.1.114666.3.57[id number] 2.16.840.1.520530.3.579.2.[id number] 2.16.840.1.263234.3.579.2.62037-54-7640Ixuzuxb05066612 2.16.840.1.891894.3.579.2.770612-13-4946Ncmhqac36699502 2.16.840.1.006829.3.579.2.864811-89-4873Gsttxtq5343438 2.16.840.1.297787.3.579.2.219666-40-8222Kxocijw7285945 2..840.1.339134.3.579.2.527053-79-2210Hidokgg7631980 2..840.1.071579.3.579.2.836430-79-6157Qewmlnz2634818 2..840.1.185065.3.579.2.159843-95-7965Utmsznb6778403 2.16.840.1.517846.3.579.2.6068Qvdfytv55549266 2.16.840.1.752791.3.579.2.531 [id number] 2.16.840.1.372687.3.579.2.137Xtstuwo03596139 2.16.840.1.557697.3.579.2.049Vynijbr83278101 2.16.840.1.282984.3.579.2.531 [id number] 2.16.840.1.5651[id number] 2.16.840.1.128719.3.579.2.250Efrrsqr25914979 2.16.840.1.338700.3.579.2.531 [id number] 2.840.1.469299.3.579.2.531 Social History DateTypeDetailFacilityStart: 02-20-2004 End: 06-20-3776Nrkodjv smoking status NHISFormer smokerThe Jewish HospitalComment on above:quit smoking in 1984Start: 07-14-1979 End: 52-68-7813Phlpids of tobacco useCurrent smokerRegency Hospital Toledo Work Phone: Start: 97-33-8509Rygvxiz intakeNot [facility] Hospitaltart: 93-96-8309Mjz Assigned At BirthNot on [facility] Hospitaltart: 02-07-2023 End: 69-14-0948Cmi [facility]art: 65-23-4540M[facility]: [facility] End: 06-33-8784Empwmla of tobacco useCigarette SmokerSelect Medical Specialty Hospital - Columbustart: 04-04-2022 End: 88-01-8153Lahgjbzxdv smoked current (pack per day) - Reported1.5[facility]Start: 04-04-2022 End: 93-74-0997Qwlwekd use and exposureSmokeless tobacco non-userSelect Medical Specialty Hospital - Columbustart: 04-04-2022 End: 22-37-0665Tygqauv intakeEx-drinker (finding)[facility] Columbustart: 03-25-2022 End: 87-50-7608Hlhuabdv to SARS-CoV-2 (event)Not sureRegency Hospital ToledoAdult Depression Screening Vvhlctqjkj9Kfkhceyhp ClinicComment on above:quit smoking in 1984Start: 36-36-0197Uudscvb smoking status NHISNever smoked tobaccoBRIGHAM CITY COMMUNITY [facility]PITAL HealthcareStart: 08-21-2023 End: 55-03-2614Grkvmpb intakeCurrent drinker of alcohol (finding)[facility] Start: 14-09-7635Cfzblen CommentAlcohol: 1-2 drinks occasionally. Caffeine: 3-4 cups/day coffeeBRIGHAM CITY COMMUNITY HOSPITAL HealthcareStart: 05-27-2024 End: 26-73-9294YfdMixkac (finding)[facility] District Hospitalexual OrientationExec[facility] Medical Equipment Procedure CodeEquipment CodeEquipment Original TextEquipment IdentifierDates Start: 29-48-7349CRVTEWOJH FUSELOX LUMBARFDAStart: 45-03-5326FYWLTOJQ RELINE SCREWFDAStart: 07-86-0110YZEUHVGM RELINE SCREWFDAStart: 46-55-9188HQXWYHVC RELINE SCREWFDAStart: 87-58-1000UPRLQCWQ RELINE SCREWFDAStart: 03-24-2017 NUVASIVE RODFDAStart: 63-26-5351NKTRAEKG RODFDAStart: 79-63-8927ZBTFYTFJ GRANULES 10CCFDAStart: 48-47-5646AJTMXFWWP FUSELOX LUMBARFDAStart: 03-24-2017 [place] One Level DeformityFDAStart: 55-87-4416AXWQCAOESH 15CC CRUSHEDFDAStart: 93-06-8833SEEESBIOS CAPLOX II MED/LGFDAStart: 09-20-7076KSSCVEAO LOCK SCREWSFDA Start: 60-01-9423YBZHFLIL LOCK SCREWSFDAStart: 47-76-5064AEQHPWLS LOCK SCREWSFDA Start: 37-17-3838FUWLKHCG LOCK SCREWSFDAStart: 28-93-8890IQGFWBWFW FUSELOX LUMBARFDAStart: 82-91-1021HAFNBXCM RELINE SCREWFDAStart: 12-34-7804KAHPYWOY RELINE SCREWFDAStart: 97-00-4583EOQLAHCK RELINE SCREWFDAStart: 03-24-2017 NUVASIVE RELINE SCREWFDAStart: 21-01-9340EOAWPIAM RODFDAStart: 03-24-2017 NUVASIVE RODFDAStart: 83-93-9392AFVDVCER GRANULES 10CCFDAStart: 03-24-2017 ALLOGRAFT FUSELOX LUMBARFDAStart: 61-74-3710Hxigsh One Level DeformityFDAStart: 02-68-0496NJIJDSASUZ 15CC CRUSHEDFDAStart: 70-19-7253FPROYRFZK CAPLOX II MED/LG FDAStart: 53-59-4389EXANNPWS LOCK SCREWSFDAStart: 83-42-7019FVCOFRVR LOCK SCREWS FDAStart: 37-54-0239XVLCSSLJ LOCK SCREWSFDAStart: 66-59-9117UXCKBCTH LOCK SCREWS FDAStart: 66-04-0606RPYVAGQOR FUSELOX LUMBARFDAStart: 57-97-5516WQYJNSCB RELINE SCREWFDAStart: 28-70-0830SRTJCLPC RELINE SCREWFDAStart: 38-87-8021ACSANISO RELINE SCREWFDAStart: 67-43-3410HMKQOBUW RELINE SCREWFDAStart: 03-24-2017 NUVASIVE RODFDAStart: 34-26-4380FDLZAEVI RODFDAStart: 98-55-5501VDLZZBZH GRANULES 10CCFDAStart: 92-12-9601NZRDMIINF FUSELOX LUMBARFDAStart: 03-24-2017 [place] One Level DeformityFDAStart: 24-61-3282QFTCMJVBIF 15CC CRUSHEDFDAStart: 16-50-7222MZWPTLXCU CAPLOX II MED/LGFDAStart: 56-97-2800FQXMXHOR LOCK SCREWSFDA Start: 13-15-0265RYEIXESN LOCK SCREWSFDAStart: 03-07-3587ZQIFOGUP LOCK SCREWSFDA Start: 80-47-2368RUBOPEKK LOCK SCREWSFDAStart: 12-52-1524ZVDDORLXT FUSELOX LUMBARFDAStart: 79-16-0463MLJNXWJI RELINE SCREWFDAStart: 47-13-1301OTRFJIHL RELINE SCREWFDAStart: 67-43-8169GAOFTWPI RELINE SCREWFDAStart: 03-24-2017 NUVASIVE RELINE SCREWFDAStart: 23-34-4407KZNUWCAG RODFDAStart: 03-24-2017 NUVASIVE RODFDAStart: 03-36-7020QCKKSUDD GRANULES 10CCFDAStart: 03-24-2017 ALLOGRAFT FUSELOX LUMBARFDAStart: 39-78-1489Hfhteo One Level DeformityFDAStart: 18-42-6276NKFWDJXDZP 15CC CRUSHEDFDAStart: 62-24-3648IADZOXTXO CAPLOX II MED/LG FDAStart: 72-04-4393RJVUSXBA LOCK SCREWSFDAStart: 05-78-2546ARDJLPRF LOCK SCREWS FDAStart: 01-40-4316BBZWDLPM LOCK SCREWSFDAStart: 51-34-1628YWTPGXJD LOCK SCREWS FDAStart: 37-38-1883GNYXLNNPC FUSELOX LUMBARFDAStart: 13-01-3217VNUNVXQX RELINE SCREWFDAStart: 19-02-3267RLREVLEY RELINE SCREWFDAStart: 01-53-6909WMWWRYJT RELINE SCREWFDAStart: 69-46-5743ZWSZCFHZ RELINE SCREWFDAStart: 03-24-2017 NUVASIVE RODFDAStart: 97-12-6113XKUZTOUH RODFDAStart: 20-19-0969RNAWCLIP GRANULES 10CCFDAStart: 06-49-3255PMZCNHEZD FUSELOX LUMBARFDAStart: 03-24-2017 [place] One Level DeformityFDAStart: 39-19-6963GZACMAYLPA 15CC CRUSHEDFDAStart: 15-95-8100FMONYTZRV CAPLOX II MED/LGFDAStart: 37-73-7065AUPSZYWJ LOCK SCREWSFDA Start: 30-55-0082BXZWBHAO LOCK SCREWSFDAStart: 06-16-3008BJXYIFUR LOCK SCREWSFDA Start: 63-11-4840ULBQUTSA LOCK SCREWSFDAStart: 41-16-3913SJWCCGHSL FUSELOX LUMBARFDAStart: 95-89-9113HNCSCBBK RELINE SCREWFDAStart: 05-87-7165DZPSUGGB RELINE SCREWFDAStart: 38-08-9254HOULHDLP RELINE SCREWFDAStart: 03-24-2017 NUVASIVE RELINE SCREWFDAStart: 15-47-0127MXUVFIXS RODFDAStart: 03-24-2017 NUVASIVE RODFDAStart: 76-12-2581CPEMQLGX GRANULES 10CCFDAStart: 03-24-2017 ALLOGRAFT FUSELOX LUMBARFDAStart: 38-98-8080Juoqji One Level DeformityFDAStart: 85-31-7118ZIBUZGEWPV 15CC CRUSHEDFDAStart: 85-98-3132YWPAIYETH CAPLOX II MED/LG FDAStart: 00-71-7661PJIMIOOR LOCK SCREWSFDAStart: 15-06-2692VCPQZVEL LOCK SCREWS FDAStart: 99-77-5413ALJIROUK LOCK SCREWSFDAStart: 57-82-5958RROPCJPH LOCK SCREWS FDAStart: 17-65-1937QMYOGGHTP FUSELOX LUMBARFDAStart: 77-01-2119FFOEWKDN RELINE SCREWFDAStart: 34-85-8744YONQZOCC RELINE SCREWFDAStart: 68-87-3722WPELFHSX RELINE SCREWFDAStart: 73-22-8443SLNGRRVL RELINE SCREWFDAStart: 03-24-2017 NUVASIVE RODFDAStart: 15-00-7966MQZCCHJT RODFDAStart: 14-42-5607RFVPBVCM GRANULES 10CCFDAStart: 38-29-7081UKYQSOMIK FUSELOX LUMBARFDAStart: 03-24-2017 [place] One Level DeformityFDAStart: 51-29-7363ULTCHQAGNV 15CC CRUSHEDFDAStart: 48-41-1333CQQVRPXCQ CAPLOX II MED/LGFDAStart: 53-88-6596GPETTNSH LOCK SCREWSFDA Start: 75-43-4610ABZVFLDG LOCK SCREWSFDAStart: 21-91-0968LCOHBDZS LOCK SCREWSFDA Start: 55-04-5114KWCEJSOD LOCK SCREWSFDAStart: 87-10-5573MNFBQDALM FUSELOX LUMBARFDAStart: 58-57-1629ENTWIJSH RELINE SCREWFDAStart: 92-84-3483POYAYIQJ RELINE SCREWFDAStart: 51-65-7432KBWKUTOY RELINE SCREWFDAStart: 03-24-2017 NUVASIVE RELINE SCREWFDAStart: 50-57-5521URYEJMEH RODFDAStart: 03-24-2017 NUVASIVE RODFDAStart: 98-77-0058IEBFIERZ GRANULES 10CCFDAStart: 03-24-2017 ALLOGRAFT FUSELOX LUMBARFDAStart: 15-50-8414Syxgmf One Level DeformityFDAStart: 38-53-3531OKYFQRZQPK 15CC CRUSHEDFDAStart: 33-86-4128OLGDJOLIR CAPLOX II MED/LG FDAStart: 83-47-6927BSSZUXFD LOCK SCREWSFDAStart: 24-90-6564QVSIQWGX LOCK SCREWS FDAStart: 45-37-1799KDOSMGYZ LOCK SCREWSFDAStart: 10-49-5425XXDJODEK LOCK SCREWS FDAStart: 03-20-1887AXPUPXGVY FUSELOX LUMBARFDAStart: 72-64-0957XOQALBZI RELINE SCREWFDAStart: 52-22-2180BHVCWHIS RELINE SCREWFDAStart: 01-13-8172FOUWKSGS RELINE SCREWFDAStart: 72-10-4917KJAULLKB RELINE SCREWFDAStart: 03-24-2017 NUVASIVE RODFDAStart: 39-27-4756YRBIPZGO RODFDAStart: 90-58-4142AVJJKJDP GRANULES 10CCFDAStart: 79-63-7396AAZWTJIZM FUSELOX LUMBARFDAStart: 03-24-2017 [place] [employer] Level DeformityFDAStart: 94-21-8845GHLLVFTHVB 15CC CRUSHEDFDAStart: 01-69-5324GQWVHHBRL CAPLOX II MED/LGFDAStart: 68-63-7270SGNPBGUG LOCK SCREWSFDA Start: 25-18-1058UUWFLDGY LOCK SCREWSFDAStart: 03-99-2791XCDZEHSF LOCK SCREWSFDA Start: 60-55-5255EPFXMOZL LOCK SCREWSFDAStart: 54-22-4593RICZNXBVG FUSELOX LUMBARFDAStart: 74-12-0770KDCNICJG RELINE SCREWFDAStart: 54-68-5467TJMXLCEF RELINE SCREWFDAStart: 85-67-3989FPDQXKNW RELINE SCREWFDAStart: 03-24-2017 NUVASIVE RELINE SCREWFDAStart: 96-25-7050JVFVOXII RODFDAStart: 03-24-2017 NUVASIVE RODFDAStart: 68-36-2466VBBNNFXX GRANULES 10CCFDAStart: 03-24-2017 ALLOGRAFT FUSELOX LUMBARFDAStart: 24-73-0570Guuupv One Level DeformityFDAStart: 36-41-8018QXBOTAEQMW 15CC CRUSHEDFDAStart: 91-45-6495BOTVPQWLZ CAPLOX II MED/LG FDAStart: 67-84-8024WRZUXSNG LOCK SCREWSFDAStart: 87-52-9036HONGJMCE LOCK SCREWS FDAStart: 77-30-1043XDXQIRNF LOCK SCREWSFDAStart: 92-42-6123KFSGQILF LOCK SCREWS FDAStart: 40-34-2952PCUWFWHMI FUSELOX LUMBARFDAStart: 81-43-2041HDYJVJEE RELINE SCREWFDAStart: 35-67-3591HKBDJZXV RELINE SCREWFDAStart: 21-77-0032QFOZIDQZ RELINE SCREWFDAStart: 59-43-6987RXUYIDLS RELINE SCREWFDAStart: 03-24-2017 NUVASIVE RODFDAStart: 11-49-0197UMEOGMFD RODFDAStart: 91-26-5370USBJJKTX GRANULES 10CCFDAStart: 75-99-4469WWIAKCDGN FUSELOX LUMBARFDAStart: 03-24-2017 [place] One Level DeformityFDAStart: 46-52-4937NJGYFRNZKN 15CC CRUSHEDFDAStart: 89-03-7574UCOIOHMGZ CAPLOX II MED/LGFDAStart: 53-89-1238RPAQLQKZ LOCK SCREWSFDA Start: 70-30-4583WOURTLWE LOCK SCREWSFDAStart: 00-53-3260AFREOUXP LOCK SCREWSFDA Start: 75-27-9872UCNSHVFD LOCK SCREWSFDAStart: 56-89-7466FLEOVUPPG FUSELOX LUMBARFDAStart: 25-91-3669RFIBETIV RELINE SCREWFDAStart: 26-71-9464CZTAIAFZ RELINE SCREWFDAStart: 41-10-6236XSJKUWSS RELINE SCREWFDAStart: 03-24-2017 NUVASIVE RELINE SCREWFDAStart: 83-48-0899PKGLANIW RODFDAStart: 03-24-2017 NUVASIVE RODFDAStart: 99-84-2461RITNIVXP GRANULES 10CCFDAStart: 03-24-2017 ALLOGRAFT FUSELOX LUMBARFDAStart: 52-87-1691Sbkvdg One Level DeformityFDAStart: 59-63-2231XAAAOQKKVI 15CC CRUSHEDFDAStart: 25-58-3103DFIXVSGDH CAPLOX II MED/LG FDAStart: 48-67-8976DRCAGQWR LOCK SCREWSFDAStart: 86-76-6229JXKERSOT LOCK SCREWS FDAStart: 67-44-5262OMMKXTFQ LOCK SCREWSFDAStart: 57-30-4339YUFNXANV LOCK SCREWS FDAStart: 17-24-5365LRMQHHUNT FUSELOX LUMBARFDAStart: 13-34-5709OEVQDFEN RELINE SCREWFDAStart: 74-36-9467LZNYEXNG RELINE SCREWFDAStart: 78-04-5383BPDPUJAX RELINE SCREWFDAStart: 86-70-8295RUFDZNLY RELINE SCREWFDAStart: 03-24-2017 NUVASIVE RODFDAStart: 25-42-2881EORNVHYY RODFDAStart: 66-36-4707JZWRVATC GRANULES 10CCFDAStart: 54-51-4637CJQTBIHAQ FUSELOX LUMBARFDAStart: 03-24-2017 [place] One Level DeformityFDAStart: 13-68-0402BHSQNKGOPQ 15CC CRUSHEDFDAStart: 66-56-7135XREZSBJDM CAPLOX II MED/LGFDAStart: 08-96-0063WRDVSYEX LOCK SCREWSFDA Start: 19-09-3271LHQTGYCS LOCK SCREWSFDAStart: 17-91-2966MEEICGZA LOCK SCREWSFDA Start: 07-08-9658DTRQQOOJ LOCK SCREWSFDAStart: 87-01-3814OBGFTOOLZ FUSELOX LUMBARFDAStart: 02-10-1895YRIPVLKE RELINE SCREWFDAStart: 73-70-9881EKAIQKOC RELINE SCREWFDAStart: 90-27-7466KXEZCFRR RELINE SCREWFDAStart: 03-24-2017 NUVASIVE RELINE SCREWFDAStart: 90-91-8230MURAGRYC RODFDAStart: 03-24-2017 NUVASIVE RODFDAStart: 43-09-7482CAKWJTYS GRANULES 10CCFDAStart: 03-24-2017 ALLOGRAFT FUSELOX LUMBARFDAStart: 74-48-2921Zajxej One Level DeformityFDAStart: 80-88-9502NEAHNFUBUI 15CC CRUSHEDFDAStart: 56-23-6032EBZVLWTPO CAPLOX II MED/LG FDAStart: 47-01-5783KXPTUWRN LOCK SCREWSFDAStart: 82-58-7239GECLCWLT LOCK SCREWS FDAStart: 75-19-8270OUTNYDAQ LOCK SCREWSFDAStart: 42-92-6165ERBVHZIR LOCK SCREWS FDAStart: 96-53-6284IQHGQCEWM FUSELOX LUMBARFDAStart: 42-72-6985DCHKTARZ RELINE SCREWFDAStart: 81-79-1347NWGKPGLD RELINE SCREWFDAStart: 94-60-5923TGKLCOMQ RELINE SCREWFDAStart: 38-23-3246CHVXSRRA RELINE SCREWFDAStart: 03-24-2017 NUVASIVE RODFDAStart: 66-45-9615GCTGWJLV RODFDAStart: 89-37-0765XKNJQYSX GRANULES 10CCFDAStart: 70-67-3010FIFWBBXXW FUSELOX LUMBARFDAStart: 03-24-2017 [place] One Level DeformityFDAStart: 30-98-1752EWQLFZTNZB 15CC CRUSHEDFDAStart: 01-27-6786JPOHNMCDY CAPLOX II MED/LGFDAStart: 67-57-8073EXYVYQPU LOCK SCREWSFDA Start: 86-19-2281ILLVJLCX LOCK SCREWSFDAStart: 50-33-6214HHYPAEYM LOCK SCREWSFDA Start: 25-27-1386KFBSLKAS LOCK SCREWSFDAStart: 41-65-7980TWCEGWBQA FUSELOX LUMBARFDAStart: 85-96-5493UEUUFHOH RELINE SCREWFDAStart: 29-01-5738FIEVJRWD RELINE SCREWFDAStart: 81-67-7641JITKWOZQ RELINE SCREWFDAStart: 03-24-2017 NUVASIVE RELINE SCREWFDAStart: 81-40-9292FUCWLWMH RODFDAStart: 03-24-2017 NUVASIVE RODFDAStart: 47-43-1667UBLLRJQN GRANULES 10CCFDAStart: 03-24-2017 ALLOGRAFT FUSELOX LUMBARFDAStart: 41-75-9763Ycsrnq One Level DeformityFDAStart: 23-53-8281GPPKYAJJJB 15CC CRUSHEDFDAStart: 17-39-2367BHBACPGSP CAPLOX II MED/LG FDAStart: 42-98-1714LZWXHXCW LOCK SCREWSFDAStart: 09-91-8094GWHBTIMY LOCK SCREWS FDAStart: 65-88-9595YMCPFUEY LOCK SCREWSFDAStart: 43-95-6065XEVSBIPV LOCK SCREWS FDAStart: 95-07-3167DIQJDOLVG FUSELOX LUMBARFDAStart: 85-65-7130BJQZZFVA RELINE SCREWFDAStart: 82-17-3116OPKBCMZN RELINE SCREWFDAStart: 51-98-9897ACDMNEDE RELINE SCREWFDAStart: 00-36-3392FDGFODHE RELINE SCREWFDAStart: 03-24-2017 NUVASIVE RODFDAStart: 54-55-2893JJLATTKJ RODFDAStart: 19-74-0591HFWUVHEP GRANULES 10CCFDAStart: 79-10-1031RGMECVELH FUSELOX LUMBARFDAStart: 03-24-2017 [place] One Level DeformityFDAStart: 24-35-1817HAMSNIDHAJ 15CC CRUSHEDFDAStart: 90-50-8279PSIJYQIDN CAPLOX II MED/LGFDAStart: 42-25-4877SKZPXKQP LOCK SCREWSFDA Start: 97-74-5139LFICCIMY LOCK SCREWSFDAStart: 45-78-0758KIJTAYFI LOCK SCREWSFDA Start: 02-72-9170GTWICEGD LOCK SCREWSFDAStart: 74-76-4747IIJFVSESX FUSELOX LUMBARFDAStart: 11-35-3973IJILFPQB RELINE SCREWFDAStart: 92-58-8084ENVLTJEN RELINE SCREWFDAStart: 20-58-9885YXIGGLNQ RELINE SCREWFDAStart: 03-24-2017 NUVASIVE RELINE SCREWFDAStart: 71-97-7928TUIXSPOG RODFDAStart: 03-24-2017 NUVASIVE RODFDAStart: 16-73-1559SLJZTMNH GRANULES 10CCFDAStart: 03-24-2017 ALLOGRAFT FUSELOX LUMBARFDAStart: 20-48-3731Oulrco One Level DeformityFDAStart: 17-80-3666BUEZPTGSQI 15CC CRUSHEDFDAStart: 03-17-8324UQNFQIFWZ CAPLOX II MED/LG FDAStart: 98-46-1004CUDUCZBR LOCK SCREWSFDAStart: 94-24-1280BKJJQXTV LOCK SCREWS FDAStart: 41-17-4375LQFSUIRV LOCK SCREWSFDAStart: 61-89-9819WWCXTLUK LOCK SCREWS FDAStart: 01-94-7032UHXYJHASH FUSELOX LUMBARFDAStart: 38-78-9091DGNVTIUV RELINE SCREWFDAStart: 45-19-2341IBIJFVXK RELINE SCREWFDAStart: 21-36-5276WWRNGMVU RELINE SCREWFDAStart: 18-29-4953WZWJFQYY RELINE SCREWFDAStart: 03-24-2017 NUVASIVE RODFDAStart: 70-79-4327QPOCCKZD RODFDAStart: 85-40-4339WETWKVZF GRANULES 10CCFDAStart: 78-50-2899OAJXBRGSL FUSELOX LUMBARFDAStart: 03-24-2017 [place] One Level DeformityFDAStart: 31-26-1799FOTXCLPKWX 15CC CRUSHEDFDAStart: 71-34-5122VXIANLBYC CAPLOX II MED/LGFDAStart: 41-67-1125QNPOUJPA LOCK SCREWSFDA Start: 82-98-7583EYYKAWGN LOCK SCREWSFDAStart: 49-79-0534JTAYJOSC LOCK SCREWSFDA Start: 47-35-4143ZQBQLXSG LOCK SCREWSFDAStart: 20-95-3455MHDQIGZYO FUSELOX LUMBARFDAStart: 69-36-2860KEAOQGYV RELINE SCREWFDAStart: 25-26-2672PCRHOSQF RELINE SCREWFDAStart: 50-25-2765QWVSWNXC RELINE SCREWFDAStart: 03-24-2017 NUVASIVE RELINE SCREWFDAStart: 74-54-9864DZKKNRHA RODFDAStart: 03-24-2017 NUVASIVE RODFDAStart: 59-63-5538TYHSMNPF GRANULES 10CCFDAStart: 03-24-2017 ALLOGRAFT FUSELOX LUMBARFDAStart: 86-69-6430Ouscrp One Level DeformityFDAStart: 21-86-4525XYPBRHDQDG 15CC CRUSHEDFDAStart: 45-23-9491MVTOMPEGY CAPLOX II MED/LG FDAStart: 56-91-1568SWOJECNJ LOCK SCREWSFDAStart: 27-04-7895ZIFMEOHS LOCK SCREWS FDAStart: 26-46-7741ZXSPEZQX LOCK SCREWSFDAStart: 02-86-3831XVWXJQAW LOCK SCREWS FDAStart: 00-71-7844KYBUMJJXS FUSELOX LUMBARFDAStart: 61-69-1869KYSVNWHX RELINE SCREWFDAStart: 01-38-6832XZUIMLOA RELINE SCREWFDAStart: 51-19-7126MNQUXPXM RELINE SCREWFDAStart: 80-70-7707XPNFPRCI RELINE SCREWFDAStart: 03-24-2017 NUVASIVE RODFDAStart: 24-66-7261NBABPFJV RODFDAStart: 09-59-4922AQOMLPCM GRANULES 10CCFDAStart: 81-56-4080HBPJXIQHR FUSELOX LUMBARFDAStart: 03-24-2017 [place] One Level DeformityFDAStart: 13-43-4076DCSKMWVDKI 15CC CRUSHEDFDAStart: 60-42-3736PYGBFOGPA CAPLOX II MED/LGFDAStart: 57-45-4847XEHXMIPZ LOCK SCREWSFDA Start: 30-50-8621YCZZGLJB LOCK SCREWSFDAStart: 26-24-2522PUZFJUDX LOCK SCREWSFDA Start: 89-10-5686WGCNMXTZ LOCK SCREWSFDAStart: 91-08-6215ZMJZAUCMG FUSELOX LUMBARFDAStart: 75-93-3070HMJDRAQT RELINE SCREWFDAStart: 84-61-5073GZDLNSMJ RELINE SCREWFDAStart: 97-26-2146FXEJOXTE RELINE SCREWFDAStart: 03-24-2017 NUVASIVE RELINE SCREWFDAStart: 10-72-0119JRFVYBEZ RODFDAStart: 03-24-2017 NUVASIVE RODFDAStart: 29-99-3111VMTPWKYN GRANULES 10CCFDAStart: 03-24-2017 ALLOGRAFT FUSELOX LUMBARFDAStart: 01-71-0188Nqctmh One Level DeformityFDAStart: 27-93-2292CVUNAPLMZU 15CC CRUSHEDFDAStart: 59-61-5070XUVDRUHYS CAPLOX II MED/LG FDAStart: 02-04-0218TPNOWBOC LOCK SCREWSFDAStart: 78-58-0705ZNUNDHZK LOCK SCREWS FDAStart: 86-13-1634ASPVGQMI LOCK SCREWSFDAStart: 43-85-3297MYTBSUPR LOCK SCREWS FDAStart: 67-02-1345LTOMFUNDK FUSELOX LUMBARFDAStart: 43-34-6728GAMDRMOQ RELINE SCREWFDAStart: 55-90-3649GHXQFGAE RELINE SCREWFDAStart: 87-67-9387UOZONTXU RELINE SCREWFDAStart: 57-69-4457AUDQVDDD RELINE SCREWFDAStart: 03-24-2017 NUVASIVE RODFDAStart: 53-42-1897AZZGXVXU RODFDAStart: 20-90-1151ABVAJWGW GRANULES 10CCFDAStart: 01-14-5507GUEVDTKUS FUSELOX LUMBARFDAStart: 03-24-2017 [place] One Level DeformityFDAStart: 89-63-0918UMTZSWLYWB 15CC CRUSHEDFDAStart: 82-81-8053KKBOWFUNZ CAPLOX II MED/LGFDAStart: 18-63-5590AMYQFRPK LOCK SCREWSFDA Start: 74-00-2321FUKRHKPT LOCK SCREWSFDAStart: 60-39-0483OGMLOZZT LOCK SCREWSFDA Start: 48-55-2118TMCCLSEK LOCK SCREWSFDAStart: 91-54-8649KCHJMXQFX FUSELOX LUMBARFDAStart: 52-02-4912PUULCKCR RELINE SCREWFDAStart: 22-80-0316YXEMOVXL RELINE SCREWFDAStart: 34-86-3860UFFMRYKH RELINE SCREWFDAStart: 03-24-2017 NUVASIVE RELINE SCREWFDAStart: 44-78-0363XHWMAMSM RODFDAStart: 03-24-2017 NUVASIVE RODFDAStart: 14-42-5852ITKWDURN GRANULES 10CCFDAStart: 03-24-2017 ALLOGRAFT FUSELOX LUMBARFDAStart: 76-27-8134Azkeko One Level DeformityFDAStart: 03-85-9692SPZOHORUBB 15CC CRUSHEDFDAStart: 71-26-9216CNDMGZVWT CAPLOX II MED/LG FDAStart: 40-63-8555WUBVESFO LOCK SCREWSFDAStart: 20-29-9442EYQSZZEN LOCK SCREWS FDAStart: 77-69-8902VUBVQWAL LOCK SCREWSFDAStart: 06-63-1104WNWLRUST LOCK SCREWS FDAStart: 47-72-3495OVBVXVPKJ FUSELOX LUMBARFDAStart: 51-39-3432VLVFEXKT RELINE SCREWFDAStart: 28-44-4833LWBIRJLV RELINE SCREWFDAStart: 41-72-6676AZHSHOWD RELINE SCREWFDAStart: 55-65-4434LDXMUCVH RELINE SCREWFDAStart: 03-24-2017 NUVASIVE RODFDAStart: 02-34-0073IGPQNAUG RODFDAStart: 72-31-5264DJCZKJYK GRANULES 10CCFDAStart: 36-66-6272VIBQGDSSQ FUSELOX LUMBARFDAStart: 03-24-2017 [place] One Level DeformityFDAStart: 42-16-3806JRTVDBJQCC 15CC CRUSHEDFDAStart: 85-43-3627NEZOURSYR CAPLOX II MED/LGFDAStart: 61-80-0288FEUNVJTG LOCK SCREWSFDA Start: 66-06-2395LDGDGSUP LOCK SCREWSFDAStart: 16-91-3574HGCMOSCV LOCK SCREWSFDA Start: 37-55-9512WCJPJBKG LOCK SCREWSFDAStart: 77-77-5673LAHCTJVIZ FUSELOX LUMBARFDAStart: 20-47-4506QOUZZGCL RELINE SCREWFDAStart: 97-07-7155UCCYAHER RELINE SCREWFDAStart: 60-63-2854XVBRJRIH RELINE SCREWFDAStart: 03-24-2017 NUVASIVE RELINE SCREWFDAStart: 90-47-0682MTUFCEFM RODFDAStart: 03-24-2017 NUVASIVE RODFDAStart: 29-72-0697WROPSXUN GRANULES 10CCFDAStart: 03-24-2017 ALLOGRAFT FUSELOX LUMBARFDAStart: 87-87-6737Rbtkkl One Level DeformityFDAStart: 58-92-1485KZZSLWREGX 15CC CRUSHEDFDAStart: 00-61-2532EAZYHMWOR CAPLOX II MED/LG FDAStart: 92-40-2645OLQOPEQJ LOCK SCREWSFDAStart: 09-06-5377LJTYPLXQ LOCK SCREWS FDAStart: 14-44-6628SCSGFOCK LOCK SCREWSFDAStart: 02-87-3029KXZNCGYL LOCK SCREWS FDAStart: 77-84-2148BODTBCEYR FUSELOX LUMBARFDAStart: 33-48-3151KXKGZRVC RELINE SCREWFDAStart: 90-90-1399JZCZEZWE RELINE SCREWFDAStart: 82-94-3491RARYQNKU RELINE SCREWFDAStart: 58-68-6584YMNCBOTX RELINE SCREWFDAStart: 03-24-2017 NUVASIVE RODFDAStart: 18-57-0230OFWONAXS RODFDAStart: 01-57-3757QKJGCQOF GRANULES 10CCFDAStart: 09-40-5224KXAGZHOVB FUSELOX LUMBARFDAStart: 03-24-2017 [place] One Level DeformityFDAStart: 53-04-8776ANVGIHNLXH 15CC CRUSHEDFDAStart: 67-90-5999ZEWBGIPSQ CAPLOX II MED/LGFDAStart: 80-73-4151MRMLXUAF LOCK SCREWSFDA Start: 81-15-4231HFPBLLAU LOCK SCREWSFDAStart: 96-59-6492EACBCTCJ LOCK SCREWSFDA Start: 51-12-6060RYKIUWGI LOCK SCREWSFDAStart: 98-38-3887QMRAAEHKW FUSELOX LUMBARFDAStart: 66-66-9664UVINVVOO RELINE SCREWFDAStart: 40-32-8869FADICFIC RELINE SCREWFDAStart: 52-90-1542VIUJAWTF RELINE SCREWFDAStart: 03-24-2017 NUVASIVE RELINE SCREWFDAStart: 37-06-9765DMOZKMJD RODFDAStart: 03-24-2017 NUVASIVE RODFDAStart: 49-75-4337HGGBBJSL GRANULES 10CCFDAStart: 03-24-2017 ALLOGRAFT FUSELOX LUMBARFDAStart: 59-14-0217Dxwnwp One Level DeformityFDAStart: 13-74-9361ECPNXMBQFG 15CC CRUSHEDFDAStart: 09-13-8302ABZSGTHPA CAPLOX II MED/LG FDAStart: 28-56-4582OMDKVMJD LOCK SCREWSFDAStart: 11-28-1617KGBCCKEM LOCK SCREWS FDAStart: 16-76-2792XXQUVLDA LOCK SCREWSFDAStart: 51-72-3904HQUFXPYT LOCK SCREWS FDAStart: 71-53-9395HYPEJKYGR FUSELOX LUMBARFDAStart: 15-07-9654UHRCLCOP RELINE SCREWFDAStart: 67-23-1261VVFLFCAS RELINE SCREWFDAStart: 92-75-4321MOHCVUXK RELINE SCREWFDAStart: 76-68-6256ITWKCMGB RELINE SCREWFDAStart: 03-24-2017 NUVASIVE RODFDAStart: 27-92-4859VXBJCOBV RODFDAStart: 76-91-0049JEBXSYMH GRANULES 10CCFDAStart: 00-61-3745MZGVSZMZY FUSELOX LUMBARFDAStart: 03-24-2017 [place] One Level DeformityFDAStart: 20-06-0420WUIPDKTVHP 15CC CRUSHEDFDAStart: 97-00-3073ZDKLHASZL CAPLOX II MED/LGFDAStart: 84-66-8489VVBYQIDP LOCK SCREWSFDA Start: 30-43-2399OCSCONVA LOCK SCREWSFDAStart: 96-52-4111UGZKNSEK LOCK SCREWSFDA Start: 41-58-2716SGAQEVCY LOCK SCREWSFDAStart: 12-31-3800HSNIQACVC FUSELOX LUMBARFDAStart: 00-51-3761AQWLDBCM RELINE SCREWFDAStart: 93-49-2678YHGHJHEV RELINE SCREWFDAStart: 02-37-5139JXTDNDVL RELINE SCREWFDAStart: 03-24-2017 NUVASIVE RELINE SCREWFDAStart: 95-85-4539VLCNLJTH RODFDAStart: 03-24-2017 NUVASIVE RODFDAStart: 90-19-8714NLXZUPOP GRANULES 10CCFDAStart: 03-24-2017 ALLOGRAFT FUSELOX LUMBARFDAStart: 37-58-2873Qchius One Level DeformityFDAStart: 63-45-9532JNNVPFNNHZ 15CC CRUSHEDFDAStart: 89-19-6742ZLATVLCVG CAPLOX II MED/LG FDAStart: 92-92-4378WBQDBFHJ LOCK SCREWSFDAStart: 17-01-9427PNUHCPWO LOCK SCREWS FDAStart: 41-93-0081SJEHJMHV LOCK SCREWSFDAStart: 13-51-5211RYCWPATA LOCK SCREWS FDAStart: 06-74-3445MQKOPYTXV FUSELOX LUMBARFDAStart: 91-80-0232SEERGKKC RELINE SCREWFDAStart: 83-97-4621ONVQCZLZ RELINE SCREWFDAStart: 10-74-7114MJWWFADW RELINE SCREWFDAStart: 93-58-2448KHSFVQYT RELINE SCREWFDAStart: 03-24-2017 NUVASIVE RODFDAStart: 04-96-9339DLVPZNJH RODFDAStart: 09-21-0796RNCITDII GRANULES 10CCFDAStart: 56-96-9872ECWIXXIEU FUSELOX LUMBARFDAStart: 03-24-2017 [place] One Level DeformityFDAStart: 84-74-6935EMAHGLIJAM 15CC CRUSHEDFDAStart: 17-98-1155CAJKQXNPT CAPLOX II MED/LGFDAStart: 19-41-3226AUJZZRAK LOCK SCREWSFDA Start: 87-57-4544KDHFJMHV LOCK SCREWSFDAStart: 82-01-5448LZZBFUSN LOCK SCREWSFDA Start: 59-57-7291QJDHWMGA LOCK SCREWSFDAStart: 03-24-2017 Goals DatePatient GoalDesired Activity/State Functional Status JitfGezqvvfmplTvtihbMxikxakd18-61-7363Iwcmvkapfs StatusN/A[facility]24Functional StatusN/A[facility]08-01-2023Functional StatusN/A [facility]07-16-2022Functional statusPatient is Progressing Toward BaselineUniversity [facility] Work Phone: Mental Status QkcpSzbusfbnnzQfkokuYqfihdgu84-57-7447Kotosedji functionCognitive Status Patient at [facility]University [facility] Work Phone: Clinical Notes 04-04-2021 to 04-18-2025 Note Date & UforVyynUittampg99-61-4651 History of Present illness Narrative* PALMA Singletary - 04/18/2025 2:30 PM EDT Skin Check Location: Patient requests a full body skin examination Dermatologic history: history of Actinic Keratosis Last visit: 2017 NF New patient Lesions: Location: right forearm anterior, left axilla Duration: years Quality: denies pain, denies itch, denies bleeding Associated symptoms: enlarged Treatments: none All pertinent medical history, medications, and allergies were reviewed. General Exam: alert, oriented to person, place, and time, normal affect, well appearing Unaccompanied Areas not examined despite medical recommendation: From the waist down Scalp, Examined Right leg Examined Head, Face Examined Left leg Examined Neck Examined Right foot Examined Chest Examined bra off Left foot Examined Back Examined Buttocks Examined Patient kept underwear on Abdomen Examined Digits,nails: Examined Right arm Examined Left arm Examined Lymphatics: Not examined Hands Examined Skin Exam 1. HILL ANGIOMA Left Thigh - Anterior Scattered hill-red papule(s). The patient was informed that angiomas are benign growths on the the skin. No treatment is necessary. 2. SEBORRHEIC KERATOSIS Generalized Stuck on verrucous, variably pigmented papules and plaques. Patient was counseled regarding these benign growths. Removal is normally not necessary, but they may be removed if they are symptomatic or for cosmetic reasons. 3. ACTINIC KERATOSIS (2) Right Buccal Cheek, Right Forehead Erythematous scaly papules Patient was counseled regarding these sun-induced growths that can develop into squamous cell carcinoma if left untreated. Discussed treatment with cryotherapy. It was emphasized that any treated lesions that fail to resolve should be re- evaluated. Cryotherapy performed today; see procedure note Diagnosis: Actinic keratosis Indication: Precancerous Location: see skin exam Consent: Verbal consent was obtained and risks were discussed, including, but not limited to risks of scarring, darker or lead data architect pigmentary changes, recurrence, incomplete removal and infection. Method: Liquid nitrogen was used to treat the lesion(s) with two 5-10 second freeze-thaw cycles. Eyes were shielded using cotton pad during procedure Number of lesions treated: 2 Post-procedure instructions: Instructions were given orally and in writing. The office will be contacted if the lesion fails to resolve despite treatment, or if a side effect develops such as abnormal crusting, scabbing, redness or tenderness Cryotherapy, skin lesion - Right Buccal Cheek, Right Forehead 4. LENTIGINES (2) Right Lower Leg - Posterior, Torso - Posterior (Back) Scattered momin macules in sun-exposed areas. The patient was informed that lentigines are benign pigmented lesions that occur on sun-exposed andsun-damaged skin. No treatment is necessary. Recommended regular use of broad spectrum sunscreen SPF 30 or higher 5. LIPOMA OF RIGHT UPPER EXTREMITY Right Forearm - Posterior Soft subcutaneous nodule Educated on lipomas. Informed patient that lipomas can be surgically removed if they become symptomatic. Discussed the only way to know for sure the lesion is a lipoma would be to have it removed andtested. Discussed observation vs. excision. Patient elected for observation today. Return to clinicfor re- evaluation if lesion is enlarging/becoming symptomatic. Next Visit: prn for any new/changing lesions documented in this encounterCox Walnut LawnFnmrkwsqxe47-97-0403 Evaluation note* Author Ayanna Vicente [facility] HospitalAuthoredAupresbyterian santa fe medical centert 2024 4:31pmThe above note written by ___Melanie Conde____ acting as human recorder, note dictated by Dr. Slater .I performed the above HPI, ROS, and Examination. I formulated and dictated the treatment plan and was present for entire encounter. Ayanna Vicente D.O. [facility] Work Phone: 1(686) 719-745107-29-2025 Hospital Discharge instructions Patient Education 02/08/2025 09:23:28 [...] your health care provider. General instructions Take bgrd-fmn-byjmckr and prescription medicines only as told by [...] provider. Document Revised: 03/19/2021 Document Reviewed: 03/19/2021 UUCUN Patient Education 2023 4th aspect. Follow Up Care 08/16/2024 09:56:41 With:Follow up in Spring Address:Unknown When: Unknown [facility]25 NotePatient Education Obstetrics and Gynecology Overactive Bladder, [...] health care provider. General instructions ??? Take jmzs-vus-ojgqwoa and prescription medicines only as told by [...] you drink, and whe (more content not included)...[facility]07-09-2025 Telephone encounter Note* Telephone Encounter - Moe Betts DO - 01/19/2025 4:35 PM EDT Marci had an attempt at a colonoscopy [...] to her medications. I'll see her PRN. [facility] LawnEsxbswsjdq50-54-9173 Miscellaneous Notes* Telephone Encounter - Moe Betts DO - 01/19/2025 4:35 PM EDT Marci had an attempt at a colonoscopy [...] I'll see her PRN. documented in this encounterCox Walnut LawnMbkwfgzgml98-88-9554 History of Present illness Narrative* Moe Betts DO - 01/12/2025 1:30 PM EDT Images [...] urethra 3x per week for UTI prevention, [email or web address], 178, cm, 08/16/24 9:10:00 EST, Height/Length [...] colonoscopy have been made. documented in this encounterCox Walnut LawnTprwkkyslh95-49-1152 History of Present illness Narrative* Zohaib German MD - 12/17/2024 10:27 AM EDT Images from the original note were not included. 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 There have not been any new health [...] Reviewed on 05/26/2024 Name Date COVID-19 vaccine ([employer]) 03/19/2024, 06/23/2023 COVID-19 vaccine, bivalent (FresviiBIOBelanit) 04/18/2022 COVID-19 vaccine, monovalent (PFIZER-BIONTGoPro) 06/01/2021, 09/01/2020, 08/11/2020 Physical Exam GENERAL APPEARANCE: [...] use of insulin([facility]) (Z79.899) Long-term use of Plaquenil Plan Orders [...] which included preparing to see the patient, absk-vp-wvso patient care, completing clinical documentation, obtaining and/or [...] 2024 Time: 10:27 AM documented in this encounterRegency [facility]-2025 NoteHNO ID: [id number] Author: ZOHAIB GERMAN MD Service: ? 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 There have not been any new health [...] Family History FAMILY HISTORY (more content not included)...[facility] 12-16-2024 Evaluation note* Diagnosis Onset Date Resolution Status Admit Date Chronic kidney disease, stage 3b acuteJune 2024 2:13pmHyperkalemiaacuteJune 2024 2:13pmHypertensive chronic 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 4 chronic kiacuteJune 2024 2:13pmType 2 diabetes mellitus with diabetic chronic kidney diseaseacute December 16, 2024 2:13pmHLD (hyperlipidemia)chronicDece 2024 2:13pmVitamin D deficiencychronicJun2024 2:13pmChronic kidney disease, stage 3bacuteJuly 2024 1:47pmHyperkalemiaacuteJuly 2024 1:47pmHypertensive chronic 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 4 chronic kiacuteJuly 2024 1:47pmType 2 diabetes mellitus with diabetic chronic kidney diseaseacuteJuly 2024 1:47pmHLD (hyperlipidemia)chronicJuly 2024 1:47pmVitamin D deficiencychronicJuly 2024 1:47pmHydradenitisacuteAugust 2024 2:43pm Lumbar degenerative disc diseaseacuteAugust 2024 2:43pmNeuropathyacute [place] 2024 2:43pmOveractive bladderacuteAugust 2024 2:43pmDiabetes chronicAugust 2024 2:43pm [facility] Work Phone: 1(872) 865-240105-07-2025 Telephone encounter Note* Telephone Encounter - Susan Caballero - 11/17/2024 2:35 PM EDT Records faxed to Dr. Silva [phone]. I called Roxie to let her know they were faxed. [facility]05-07-2025 Miscellaneous Notes* Telephone Encounter - Susan Caballero - 11/17/2024 2:35 PM EDT Records faxed to Dr. Silva [phone]. I called Roxie to let her know they were faxed. * Telephone Encounter - Lori Renner - 11/17/2024 11:[address] Zena DREW Received a call from patient caregiver Roxie Bhagat. She stated that patient would like to cancel her upcoming appointment with Dr Paredes on 11/24 due to patient is going to be following with Dr Silva @ [facility] as this is closer to home for patient. Roxie requested to talk to medical records regarding having records sent to Dr Silva transferred call To Heather Todd. Lori Callahan documented in this encounterRegency Hospital [facility]05-07-2025 Telephone encounter Note * Telephone Encounter - Lori Renner - 11/17/2024 11:[address] Zena DREW Received a call from patient caregiver Roxie Bhagat. She stated that patient would like to cancel her upcoming appointment with Dr Paredes on 11/24 due to patient is going to be following with Dr Silva @ [facility] as this is closer to home for patient. Roxie requested to talk to medical records regarding having records sent to Dr Silva transferred call To Heather Todd. Lori Callahan [facility]04-30-2025 Evaluation note* Author Ayanna Vicente [facility] HospitalAuthoredApril 2024 4:51pmThe above note written by ___Melanie Conde____ acting as human recorder, note dictated by Dr. Slater .I performed the above HPI, ROS, and Examination. I formulated and dictated the treatment plan and was present for entire encounter. Ayanna Vicente D.O. [facility] Work Phone: 1(571) 623-230504-30-2025 Hospital Discharge instructionsAmbulatory Orders* Referral to Hematology Time Frame: 11/10/24, Location: None Selected * Referral to Nephrology Time Frame: 11/10/24, Location: None Selected [facility] Work Phone: 1(866) 213-359002-03-2025 Hospital Discharge instructions Patient Education 08/16/2024 10:04:56 [...] provider. Document Revised: 01/28/2023 Document Reviewed: 01/28/2023 UUCUN Patient Education 2023 4th aspect. Follow Up Care 08/11/2024 14:41:18 With:JAX BECKMAN, SUSAN Angela, URL Address: [place] [address] When:Within 6 Month(s) [facility] 02-03-2025 NotePatient Education Caregiving Antibiotic Medicine, Adult [...] ??? You have sig (more content not included)...[facility] 08-11-2024 Evaluation note* Author Ayanna Vicente [facility] HospitalAuthoredJanuary 2024 1:46pmThe above note written by ___Melanie Conde____ acting as human recorder, note dictated by Dr. Slater .I performed the above HPI, ROS, and Examination. I formulated and dictated the treatment plan and was present for entire encounter. Ayanna Vicente D.O. [facility] Work Phone: 1(591) 837-874601-27-2025 History of Present illness Narrative* Esvin Dubon [...] oriented to person, place and time. Previous [facility] cognitive assessment: Language is fluent without aphasia. [...] , wrist extensors , wrist flexor , gasket notcher strength 5/5. LUE Strength deltoid , biceps , triceps , wrist extensors , wrist flexor , gasket notcher strength 5/5. RLE Strength illopsoas, quadriceps, tibialis [...] knee reflex 0. Hdz's sign negative. Coordination: Bjwoto-jw-fuya testing is normal Rapid alternating movements are [...] on 06/22/2024: TSH 2.632 (wnl), B12 721 [facility] cognitive assessment at [facility] on 06/17/2024: 29/30 MRI of the brain at [facility] on 07/04/18: Mild age-related changes and atrophy [...] of mental health issues documented in this encounterCox Walnut LawnAirixclmnt24-50-9316 History of Present illness Narrative* Enrique Hammonds, [...] of alcohol/substance abuse. Reformed smoker. [place] language [place]. Completed a master's degree. 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 and currently lives alone. Because of one [...] PRN incontinence, #90 tab(s), Refills(s) 3, Pharmacy: [email or web address], 178, cm, 02/11/23 11:43:00 EDT, Height/Length [...] of this individual. Please contact me with [employer] at [phone]. documented in this encounterCox Walnut LawnWztfilaugr75-19-2452 History of Present illness Narrative* Moe Betts, - 06/23/2024 2:30 PM EST Images from [...] replacement OTHER SURGICAL HISTORY 2000 fissure repair [place] REPAIR SLIDING INGUINAL HERNIA [...] to have the scope. documented in this encounterCox Walnut LawnEtmxmxocid49-01-2505 History of Present illness Narrative* Babita Guillaume [...] , wrist extensors , wrist flexor , gasket notcher strength 5/5. LUE Strength deltoid , biceps , triceps , wrist extensors , wrist flexor , gasket notcher strength 5/5. RLE Strength illopsoas, quadriceps, tibialis [...] knee reflex 0. Hdz's sign negative. Coordination: Yjxqdm-or-hhas testing and rapid alternating movements are normal Gait: Normal Review and summary of old records: [facility] cognitive assessment at [facility] on 06/17/2024: Assessment/Plan Diagnoses [...] of mental health issues documented in this encounterCox Walnut LawnCspkuvvldl88-07-2060 NoteHNO ID: [id number] Author: YOUNG HERRERA LPN Service: ? Author Type: LICENSED NURSE Type: Progress Notes Filed: 06/08/2024 13:05 Note Text: Eye exam for Plaquenil toxicity received from [facility] . Exam date was 06/07/2024. Exam shows no signs of Plaquenil toxicity. Forms sent for scanning.[facility]11-26-2024 History of Present illness Narrative* Young Herrera LPN - 06/08/2024 1:05 PM EST Eye exam for Plaquenil toxicity received from [facility] . Exam date was 06/07/2024. Exam shows no signs of Plaquenil toxicity. Forms sent for scanning. documented in this encounterRegency Hospital [facility]11-13-2024 Instructions* Patient Instructions* Chad Freitas MD - 05/26/2024 2:09 PM EST Labs today F/u in 6 months documented in this encounterMadison Ville [address]35-13-2024 History of Present illness Narrative* Chad Freitas MD - 05/26/2024 2:00 PM EST Images from the original note were not included. PATIENT NAME: Kathy Briggs [facility] NO.: [id number] ATTENDING PHYSICIAN: Chad Freitas MD DATE OF [...] Did mammogram last week at [facility]. - Scheduled to see [facility] [place] PAST MEDICAL HISTORY Diagnosis Date Depression Diabetes [...] Range Status 08/08/2023 2.0 % Final Abs Hanson Date Value Ref Range Status 08/08/2023 0.39 [...] do not hesitate to contact me at [phone]. Chad Freitas MD Hematology/Medical Oncology [facility] spent a total of 20 minutes on the date of the service which included preparing to see the patient, rdvk-xc-agoh patient care, completing clinical documentation, obtaining and/or reviewing separately obtained history, counseling and educating the patient/family/caregiver, and ordering medications, tests, or procedures. CC: Ayanna Vicente DO documented in this encounterRegency Hospital [facility]edo11-13-2024 NoteHNO ID: [id number] Author: CHAD FREITAS MD Service: ? Author Type: Physician Type: Progress Notes Filed: 05/26/2024 14:41 Note Text: PATIENT NAME: Kathy Washburn CLINIC NO.: [id number] ATTENDING PHYSICIAN: Chad Freitas MD DATE OF [...] Did mammogram last week at [facility]. - Scheduled to see [employer] [place] PAST MEDICAL HISTORY Diagnosis Date Depression Diabetes [...] Date Value Ref Range (more content not included)...[facility] 05-17-2024 NoteHNO ID: [id number] Author: ZOHAIB GERMAN MD Service: ? Author Type: Physician Type: Progress Notes Filed: 05/17/2024 13:34 Note Text: Rheumatology Outpatient Clinic Date of Service: 05/17/2024 Patient: Kathy Washburn Medical Record: [id number] Primary Care Physician: Ayanna Vicente DO Last Rheumatology visit: None at [facility] Referring Provider: No referring provider defined for [...] unit/mL injection Inject subcutaneously (more content not included)...[facility]11-04-2024 History of Present illness Narrative* Zohaib German MD - 05/17/2024 12:56 PM EST Images from the original note were not included. Rheumatology Outpatient Clinic Date of Service: 05/17/2024 Patient: Kathy Washburn Medical Record: [id number] Primary Care Physician: Ayanna Vicente DO Last Rheumatology visit: None at [facility] Referring Provider: No referring provider defined for [...] Reviewed on 07/19/2022 Name Date COVID-19 vaccine ([employer]) 03/19/2024, 06/23/2023 COVID-19 vaccine, bivalent ([employer]) 04/18/2022 COVID-19 vaccine, monovalent ([employer]) 06/01/2021, 09/01/2020, 08/11/2020 Physical Exam GENERAL APPEARANCE: [...] use of insulin([facility]) Plan Orders this visit: Office Visit on [...] which included preparing to see the patient, cnja-rd-bjez patient care, completing clinical documentation, obtaining and/or [...] 2024 Time: 12:56 PM documented in this encounterReg[facility] Hospital Discharge instructionsAmbulatory Orders* Referral to Neurology Time Frame: 05/11/24, Location: None Selected [facility] Work Phone: 1(644) 677-695708-26-2024 Evaluation note* Author Ayanna Vicente [facility] 2023 3:24pmThe above note written by ___Melanie Conde____ acting as human recorder, note dictated by Dr. Slater .I performed the above HPI, ROS, and Examination. I formulated and dictated the treatment plan and was present for entire encounter. Ayanna Vicente D.O. Author Ayanna Vicente [facility] 2023 9:11amThe above note written by ___Melanie Conde____ acting as human recorder, note dictated by Dr. Slater .I performed the above HPI, ROS, and Examination. I formulated and dictated the treatment plan and was present for entire encounter. Ayanna Vicente D.O. [facility] Work Phone: 1(874) 671-606208-26-2024 Evaluation note* Author Ayanna Vicente [facility] 2023 3:24pmThe above note written by ___Melanie Conde____ acting as human recorder, note dictated by Dr. Slater .I performed the above HPI, ROS, and Examination. I formulated and dictated the treatment plan and was present for entire encounter. Ayanna Vicente D.O. Author [facility]anna Vicente [facility] 2023 10:47amThe above note written by ___Melanie Conde____ acting as human recorder, note dictated by Dr. Slater .I performed the above HPI, ROS, and Examination. I formulated and dictated the treatment plan and was present for entire encounter. Ayanna Vicente D.O. [facility] Work Phone: [phone]) 174-566108-26-2024 Evaluation note* Author Ayanna [facility] 2023 3:24pmThe above note written by ___Melanie Conde____ acting as human recorder, note dictated by Dr. Slater .I performed the above HPI, ROS, and Examination. I formulated and dictated the treatment plan and was present for entire encounter. Ayanna Vicente D.O. Author Ayanna [facility] 2023 3:30pmThe above note written by ___Melanie Conde____ acting as human recorder, note dictated by Dr. Slater .I performed the above HPI, ROS, and Examination. I formulated and dictated the treatment plan and was present for entire encounter. Ayanna Vicente D.O. Author Ayanna [facility] 2023 10:47amThe above note written by ___Melanie Conde____ acting as human recorder, note dictated by Dr. Slater .I performed the above HPI, ROS, and Examination. I formulated and dictated the treatment plan and was present for entire encounter. Ayanna Vicente D.O. [facility] Work Phone: 1(912) 814-116808-26-2024 Evaluation note* Author Ayanna [facility] 2023 2:24pmThe above note written by ___Melanie Conde____ acting as human recorder, note dictated by Dr. Slater .I performed the above HPI, ROS, and Examination. I formulated and dictated the treatment plan and was present for entire encounter. Ayanna Vicente D.O. Author Ayanna [facility] 2023 2:30pmThe above note written by ___Melanie Conde____ acting as human recorder, note dictated by Dr. Slater .I performed the above HPI, ROS, and Examination. I formulated and dictated the treatment plan and was present for entire encounter. Ayanna Vicente D.O. Author [facility]anna [facility]ente [facility] 9:47amThe above note written by ___Melanie Conde____ acting as human recorder, note dictated by Dr. Slater .I performed the above HPI, ROS, and Examination. I formulated and dictated the treatment plan and was present for entire encounter. Ayanna Vicente D.O. [facility] Work Phone: 1(124) 870-598208-13-2024 Hospital Discharge instructions Patient Education 02/24/2024 10:42:26 [...] your health care provider. General instructions Take qyci-ptv-wjdlzan and prescription medicines only as told by [...] provider. Document Revised: 03/19/2021 Document Reviewed: 03/19/2021 [employer] Patient Education 2022 4th aspect. Follow Up Care 02/11/2023 12:11:14 With:SUSAN RANDOLPH PA-C, URL Address: [address] [place] [address] [address] [id number] When: Unknown Comments:6 mos (no labs) [facility] 08-13-2024 NotePatient Education Obstetrics and Gynecology [...] health care provider. General instructions ? Take xrkp-vgy-hzdwhob and prescription medicines only as told by [...] help your health care (more content not included)...[facility]07-25-2024 Evaluation note* Author Aynana Vicente [facility] 9:11amThe above note written by ___Melanie Conde____ acting as human recorder, note dictated by Dr. Slater .I performed the above HPI, ROS, and Examination. I formulated and dictated the treatment plan and was present for entire encounter. Ayanna Vicente D.O. [facility] Work Phone: [phone]) 631-392804-09-2024 Evaluation note* Author Ayanna Vicente [facility] 20[facility] 4:11pmThe above note written by ___Melanie Conde____ acting as human recorder, note dictated by Dr. Slater .I performed the above HPI, ROS, and Examination. I formulated and dictated the treatment plan and was present for entire encounter. Ayanna Vicente D.O. [facility] Work Phone: [phone] 838-466902-15-2024 History of Present illness Narrative* Butch Vazquez Sarah, DPM - 08/28/2023 1:45 PM EST Images from the original note were not included. History of Present Illness Diabetic/Routine Nail Care: Applies to calluses BID. Side CHIQUI. Location nails on bilateral feet. Duration ongoing. Severity of symptoms mild. Onset gradual. Status no change. NAILS thickened, discolored, pain. Relieved by debridement, filing down nails, clipping nails. Previous Treatment debridement. History of ulcers/wounds no. Recent BS reading, if diabetic A1C 6.9. Last fingerstick 150 Interested in diabetic shoes/inserts Dispensed Kandy [id number] in Purple, size 11 M on 04/11/22. [...] open areas were noted. documented in this encounterCox Walnut [id number] Evaluation note* Encounter Date Diagnosis Assessment Notes Treatment Notes Treatment Clinical Notes Jul, Pain in right hip (ICD-10 - M25. 551) 1. Neck pain: - MRI Reviewed face [...] Suspected involvement of the sacroiliac joint and hipjoint. - Plan: Refer the patient to Dr. Brooke for pain management and sacroiliac steroidal injection.Refer the patient to [facility] for aqua therapy. Discuss with primary care physician, Dr. Vicente, about prescribing a steroid prednisone for temporary relief during the patient's cruise, in the event unable to see painmanagment before vacation. Order a lidocaine patch for the patient to useon the sacroiliac and hip area for pain relief.Recommend pvrp-opb-natdjig Ther[employer] or heat patches to use alongside the lidocaine patch. 3. 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 Monitor the degeneration and consider a preventative approach. Encourage the patient to take Tylenol arthritis for overall help. 4. Bone density: - Plan: Dexa scan within normal limits. Jul,ain in left hip (ICD-10 - M25.552) Jul,Sacroiliac inflammation (ICD-10 - M46.1) Jul,ervical pain (ICD-10 - M54.2) Jul,DD (degenerative disc disease), lumbar (ICD-10 - M51.36) [facility] Other 01-03-2024 Evaluation note* Encounter Date Diagnosis Assessment Notes Treatment Notes Treatment Clinical Notes Jul, Other spondylosis wi th radiculopathy, lumbar region (ICD-10 - M47.26) She did not get in to see Dr. Corea after she was last seen. She would like to see someone for hersacroiliac/back issues. We discussed that she could see [...] see her back in three months. Side effects/risks/benefits of medication were reviewed. Jul,Sacroiliac dysfunction (ICD-10 - M53.3)She had an injection in her back (trigger point injection) done by Dr. Vicente in 2014 but when she returned to see him she told him that it only provided her with relief for 2-3 days. For now we will have her see Dr. Butterfield for evaluation to discuss her back/sacroiliac issues. Jul,ystitis (ICD-10 - N30.90)She requested a refill on Cipro to have on hand for when she travels on her cruise. She likes to have this on hand incase she develops UTI symptoms. Jul,Other2:47 PM - 3:02 PM She voices that her memory is failing, she says it is good enough to function from day to day but there are pages that are falling out of her book so she has to ask alot of questions about thingsthat happened in the past because she cannot remember. She will continue to monitor her memory. [facility] Other 10-03-2023 Evaluation note* Encounter Date Diagnosis Assessment Notes Treatment Notes Treatment Clinical Notes Apr, Diabetes type 2, uncontrolled (I CD-10 - E11.65) Discussed blood sugar results with patient today. Glucose is 154. HDL is down from 8.7 to 8.6. She admits that she did not make any changes with her Lantus and she is only using 34 units every night.I asked her to increase her Lantus to 36 units (increase by 2 units) daily for seven days and call me in one week with her blood sugar readings. Anticipate that her dose will be increased by 2 units each time but she is to call once a week until her readings are under control. Apr,Hyperlipidemia (ICD-10 - E78.5)Discussed cholesterol results with patient today. Total is 139. HDL is 42. LDL is 27. Triglyceridesare 349. VLDL is 69. At this time we will have her continue with above medications, watch intake ofcarbs and sugars. Stay active. Will see if her getting her blood sugar under better control will help to improve her cholesterol. Apr,Hypothyroidism (ICD-10 - E03.9)Discussed thyroid results with patient today. TSH is 1.62. Free T3 is 2.71. Free T4 is 0.78. I would like her to continue with the same dose of Levothyroxine. Apr,Rheumatism, unspecified (ICD-10 - M79.0)Continue to follow with specialist as directed. Apr,epression (ICD-10 - F32.9)Continue with above medication daily as directed. Apr,Other abnormal blood chemistry (ICD-10 - R79.89)Her BUN is 28. Creatinine is 1.06. EGFR is 53.106. I would like her to continue to stay well hydrated with plenty of water daily. Apr,Insomnia (ICD-10 - G47.00)She does continue with above medication daily as directed. Side effects/risks/benefits of medication were reviewed. Apr,Hypertension (ICD-10 - I10)Continue with above medication daily as directed. Apr,eripheral edema (ICD-10 - R60.9)Continue with above medication daily as directed. Apr,Neuropathy (ICD-10 - G62.9)Continue with above medication daily as directed. Side effects/risks/benefits of medication were reviewed. Apr,Other spondylosis with radiculopathy, lumbar region (ICD-10 - M47.26)She voices that she is in tremendous pain all the time. She uses a cane to help her ambulate. She did break her wrist recently when she fell so it is difficult for her to use her cane. Pain inventorysheet was completed and reviewed today. Frequent appointments needed due to addiction potential of m edication. We discussed her seeing Dr. Corea to discuss if she should address her back, hips or knee first. She is in agreement and a referral is provided. She is not ready to give up on her activities yet. Side effects/risks/benefits of medication were reviewed. Apr,Hip pain (ICD-10 - M25.559)bilateralShe voices that both of her hips have been painful. I will order an x-ray of both hips. Apr,nee pain, right (ICD-10 - M25.561)She voices that her right knee has been eligible for a revision since she had a replacement done inthe past but she is older now and is not sure that she wants to do this. She has had alot of pain in both of her hips. I will order an x-ray of her right knee. Apr,Lipoma (ICD-10 - D17.9)She has what could be lipomas on her [...] If one area gets larger than the othershe should let me know. Apr,hronic lymphocytic leukemia (ICD-10 - C91.10)She continues to follow with Dr. Lares for evaluation every six months. Apr,Flu vaccine need (ICD-10 - Z23) Apr,ystitis (ICD-10 - N30.90)for lab order only Apr,OtherAll questions she has about immunizations were answered. [facility] Other 10-02-2023 Evaluation note* Encounter Date Diagnosis Assessment Notes Treatment Notes Treatment Clinical Notes Apr, Insomnia (ICD-10 - G47.00) Apr,Neuropathy (ICD-10 - G62.9) [facility] Other 08-15-2023 Evaluation note* Encounter Date Diagnosis [...] appreciable rib fracture. We discussed that a hairlinefracture can be missed on an initial fracture. [...] 8 weeks if it were a strain. Feb,Fall (ICD-10 - W19.XXXA)She was outside in her slippers and bent [...] PT for her back six years ago. Feb,Lumbar pain (ICD-10 - M54.50)The fall has sean her back and caused it to flare up. 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 Feb,Lumbar disc disease (ICD-10 - M51.9) [facility] Other 08-01-2023 Hospital Discharge instructions Patient Education [...] your health care provider. General instructions Take gzxa-auy-zlzmwwk and prescription medicines only as told by [...] provider. Document Revised: 03/19/2021 Document Reviewed: 03/19/2021 [employer] Patient Education 2022 4th aspect. Follow Up Care 01/23/2023 15:26:59 With:SUSAN RANDOLPH PA-C, URL Address: [address] [place] [address] When: Unknown [facility] History of Present illness Narrative* Santos Lares MD - 02/07/2023 1:38 PM EDT Images from the original note were not included. PATIENT NAME: Kathy Washburn CLINIC NO.: [id number] ATTENDING PHYSICIAN: Santos Lares MD DATE OF [...] Range Status 07/19/2022 5.0 % Final Abs Hanson Date Value Ref Range Status 07/19/2022 0.84 [...] do not hesitate to contact me at [phone]. Santos Lares MD Hematology/Medical Oncology [facility] spent a total of 30 minutes on the date of the service which included preparing to see the patient, tyjv-tl-eeha patient care, completing clinical documentation,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 (ICD-10 - N32.89) She voices that she did follow with urology, Dr. Redding and did get Botox treatments followed by medication. She voices that between this and the Botox it seems to have helped her somewhat. It made traveling possible for her and made her symptoms manageable for her. Sep,eripheral edema (ICD-10 - R60.9) Continue with above medication daily as directed. Sep,Hypertension (ICD-10 - I10) For now she should continue with above medications daily as directed. Sep,Neuropathy (ICD-10 - G62.9) Continue with above medication daily as directed. Side effects/risks/benefits of medication were reviewed. Sep,ther2:54 PM - 3:20 PM [facility] 03-21-2022 Evaluation note* Encounter Date Diagnosis Assessment Notes Treatment Notes Treatment Clinical Notes Sep, Cough (ICD-10 - R05.9) [facility] 03-03-2022 Evaluation note* Encounter Date Diagnosis Assessment Notes Treatment Notes Treatment Clinical Notes Sep, Change in bowel habits (ICD-10 - R19.4) Sep,hange in stool caliber (ICD-10 - R19.4) She voices that she has had a change in stool for the last couple months but this has gradually worsened over the last few months. She voices that the stool is smelly and she has gas during the dayand her low back hurts. She voices that [...] I did recommend that she see a seasonal clerk for evaluation to discuss these issues further, she does agree to this and a referral is provided for her to see Dr. Milner. I did recommend that she have her lab drawn this week to be sure her thyroid is not abnormal. Sep,History of colon polyps (ICD-10 - Z86.010) We discussed that she had a polyp removed when she had a colonoscopy done in 2013, I recommend thatshe have a repeat colonoscopy done. She agrees but she is going to [place] on 09-19-21 and will not return until 09-26-21. She will do this when she returns. Sep,iverticulitis (ICD-10 - K57.92) Signs/symptoms of diverticulitis were reviewed, if she experiences any of these she should be evaluated at the ER. She denies any signs/symptoms of diverticulitis at this time. Sep,Irritable bowel syndrome (IBS) (ICD-10 - K58.9) For now she can continue with the Imodium until she returns from [place] and is seen by Dr. Milner. She voices that she did take Pepto but it caused her stool to be black, once she stopped this medication the stool color returned to normal. Sep,Lumbar pain (ICD-10 - M54.5) She voices that her low back hurts but she has a history of having low back pain and low back issues. Sometimes her back hurts worse before she has a bowel movement but other times it hurts after shehas a bowel movement. We discussed that her back pain/issues could be contributing to the pain she is having. Sep,ther9:29 AM - 9:49 AM [facility] 01-05-2022 Evaluation note* Encounter Date Diagnosis Assessment Notes Treatment Notes Treatment Clinical Notes Jul, Neuropathy (ICD-10 - G62.9) [facility] 12-06-2021 Evaluation note* Encounter Date Diagnosis [...] she can do without causing more problems. Jun,Other spondylosis with radiculopathy, lumbar region (ICD-10 - M47.26) She voices that she is very limited in what she can do right now. She recently had to bail on something that she really enjoys doing. She has missed three family events since January (2020) because ofher pain and ability to move. She discussed that her pain medication does help her pain, but she isvery reluctant to use it because her supply is limited. An OARRS report was reviewed no discrepancies noted. She can only function some days with the medication if she has commitments that she has toattend. She would like to use the medication [...] is risk of addiction with taking pain medicationdaily and the body will build up a pain tolerance and then the body will want a higher dose, comingoff an opioid medication is difficult. She feels she would use a maxiumum of three in one week. We discussed that there are other options that pain management doctors can offer. Dr. Regan was going to refer her to the spine center in [place] but she did not pursue this. We discussed that the painshe is having in the bladder could be coming from the back. I did explain to her that she could seesomeone from the spine center that Dr. Regan wanted to refer her to. She would like to work throughher bladder issues and continue with the pain medication and see how she does. Once she gets through the holidays she would consider seeing a local specialist. She is going to use the pain medicationwhen she needs it, I did advise her that she should not drive 12 hours after taking it and do not drink any alcohol or anything sedating after taking it. Side effects/risks/benefits of medication were reviewed. She can call for refills in between visits but will need to be seen again in three months. Jun,ystitis (ICD-10 - N30.90) She currently follows with a clinical trainer. She also saw Dr. Redding for evaluation and he did a procedure on her bladder to help with bladder leakage, she was supposed to see him again but he was sick soshe is trying to get in to see either him or another doctor such as Dr. Peterson or Dr. Gleason, she does not want to see his PA or WINE MANAGER. She gets a pain in her vaginal area, describes it as a cut but now it feels as if it is going up higher. When she went to injection molding operator [place] yesterday she felt like someone cut her but there was no blood. Sometimes it is difficult for her to know if this was from the bladder or the vagina. She has used all the Cipro she had on hand in the last two weeks and would like tohave this on hand again. Sometimes she has [...] urologist and be set up for an a ppointment but she needs to involve them in her care for when this happens in the future. Jun,Other2:53 PM - 3:23 PM [facility] 10-12-2021 Evaluation note* Encounter Date Diagnosis Assessment Notes Treatment Notes Treatment Clinical Notes Apr, Neuropathy (ICD-10 - G62.9) [facility] 09-22-2021 Evaluation note* Encounter Date Diagnosis Assessment Notes Treatment Notes Treatment Clinical Notes Mar, Hyperlipidemia (ICD-10 - E78.5) Discussed cholesterol results with patient today. Total is 141. HDL is 40. LDL is 58. Triglyceridesare 215 which go hand in hand with blood sugar. Her cholesterol readings are at goal. I would like her to continue to monitor her intake of carbs and sugars. Stay active. Mar,Hypothyroidism (ICD-10 - E03.9) Discussed thyroid results with patient today. TSH is 1.63. Free T3 is 2.67. Free T4 is 0.98. I would like her to continue with the same dose of Synthroid. Mar,iabetes type 2, uncontrolled (ICD-10 - E11.65) She is currently using 21 units of Lantus each evening. We discussed her blood sugar results today.Her glucose is 132. HgA1C is 7.2 down from 7.7 which is excellent and at goal. She is encouraged tocontinue with what she is doing as it is working well. Mar,umbar pain (ICD-10 - M54.5) An OARRS report was reviewed, no discrepancies noted. She would like to have the medication on handto use if needed, as it does provide her with relief when she uses it. Do not drink alcohol or drive after taking. Side effects/risks/benefits of medication were reviewed. She will need to return in t hree months for re-evaluation. 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 Regan. He felt her bladder issue could be caused by her back issue. Dr. Regan is referring her to the [facility] and she is seeing Oscar Mehta physical therapy. Pain inventory completed by patient and reviewed. Frequent appointments needed due to addiction potential. Mar,epression (ICD-10 - F32.9) Continue with above medication daily as directed. Mar,Hypertension (ICD-10 - I10) Her blood pressure is controlled today. Continue with both of above medications. Mar,Insomnia (ICD-10 - G47.00) She does continue to use and benefit from the Ambien. Side effects/risks/benefits of medication were reviewed. Mar,heumatism, unspecified (ICD-10 - M79.0) Continue with above medication daily as directed, follow with the specialist as directed. Mar,ncounter for screening mammogram for breast cancer (ICD-10 - Z12.31) I did provide her with an order to have a bilateral mammogram done. Mar,Other abnormal blood chemistry (ICD-10 - R79.89) We discussed that her kidney studies are changing. She is taking Lasix and Maxzide which both can be hard on the kidneys. She has never seen a pattern designer before. Her BUN is 40. Creatinine is 1.28. EGFR is 40. I asked her to stop taking the Lasix and in one month I would like her to repeat lab to see where her kidney studies are at. She is to stay well hydrated with plenty of water daily until she has this drawn. Decaf coffee and tea count as water. Mar,ladder instability (ICD-10 - N32.89) She does follow with Dr. Redding as directed. She had a dilation done but it did not help her symptoms. She has had two appointments but both were cancelled but she does have an appointment within the next two weeks to discuss further. Mar,Neuropathy (ICD-10 - G62.9) Continue with above medication daily as directed. Mar,eripheral edema (ICD-10 - R60.9) We discussed that both the Lasix and Maxzide can irritate the kidneys. I would like her to stay well hydrated with plenty of water daily. She is going to stop the Lasix and we will repeat lab in one month to see if her kidney studies have improved. Mar,iverticulitis (ICD-10 - K57.92) Provided her with a refill on Cipro to have on hand in case needed. Mar,Flu vaccine need (ICD-10 - Z23) She will receive a flu vaccine today. Mar,levated lymphocyte count (ICD-10 - D72.820) Lymphocytes fight off viruses and infections. Her lymphocyte count is elevated which seems to be progressing over time for her and now it is 6.2. We discussed referring her to a director of sustainable design for evaluation and to discuss this further but instead we will repeat lab in one month and if her level is this high or higher then we will do a referral through the [facility] in [place]. Mar,Knee pain (ICD-10 - M25.569) She was supposed [...] therapy and will see the [facility] soon. Mar,Weight loss (ICD-10 - R63.4) She has lost 5.5 pounds since last seen. She voices that she is trying to lose weight slowly. Encouraged her to continue with what she is doing. [place] [facility] Other Evaluation + Plan note Future Appointments Appointment Date:02/24/2024 10:00:00 AM Scheduled Provider:SUSAN RANDOLPH PA-C Location:[facility] Appointment Type:URO Office Visit [facility] evaluation + Plan note Future Appointments Appointment Date:02/14/2025 01:20:00 PM Scheduled Provider:SUSAN RANDOLPH PA-C Location:[facility] Appointment Type:URO Office Visit [facility] evaluation + Plan note Future Appointments Appointment Date:10/27/2025 10:20:00 AM Scheduled Provider:JOSE Stewart APRN, [place] Location:[facility] Appointment Type:URO Office Visit [facility] evalgrucry note* Diagnosis Pain in both knees, unspecified chronicity- Primary [facility] noteNo InformationNortMagee Rehabilitation Hospital [employer] Other evaluation note* Diagnosis Onset Date Resolution Status Abrasion acuteAcute hypotensionacuteAcute UTIacuteAKI (acute kidney injury)acuteContusion of leg, rightacuteFallacuteMinor closed head injuryacuteRight wrist fracture acuteSepsisacuteDiabeteschronicAcute UTIacuteChronic back painacuteDepression acuteDiabetic neuropathyacuteFallacuteHematoma of right lower legacuteImpaired mobility and activities of daily livingacuteMinor closed head injuryacuteRight wrist fractureacuteDiabeteschronicHypertensionchronicHypothyroidismOur [facility] of [facility] Work Phone: Evaluation note* Diagnosis Lymphocytosis- Primary Lymphocytosis (symptomatic) [facility]* Diagnosis CLL (chronic lymphocytic leukemia) (HCC)- Primary Chronic lymphoid leukemia, without mention of having achieved remission [facility] Diagnosis Onset Date Resolution Status Acute UTI acuteChronic back painacuteDepressionacuteDiabetic neuropathyacuteFallacute Hematoma of right lower legacuteImpaired mobility and activities of daily living acuteMinor closed head injuryacuteRight wrist fractureacuteDiabeteschronic HypertensionchronicHypothyroidismOur [facility] of [facility] Work Phone: Evaluation note* Diagnosis CLL (chronic lymphocytic leukemia) (HCC)- Primary Chronic lymphoid leukemia, without mention of having achieved remission Right ear pain Otalgia, unspecified Rib pain Chest pain, unspecified Axillary adenopathy Enlargement of lymph nodes Other signs and symptoms in breast Encounter for screening mammogram for malignant neoplasm of breast Other screening mammogram documented in this encounter [facility] noteNo assessment information availableUniversity Hospitals Sam[facility] Work Phone: Evaluation note* Diagnosis CLL (chronic lymphocytic leukemia) (HCC)- Primary Chronic lymphoid leukemia, without mention of having achieved remission [facility]* Diagnosis Onychomycosis- Primary Dermatophytosis of nail 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) Pain in both feet [facility]* Diagnosis Onset Date Resolution Status Chronic lymphocytic leukemia acuteCystitisacuteDiabetes type 2, uncontrolledacuteLumbar disc disease with radiculopathyacuteNeuropathyacuteOther abnormal blood chemistryacuteOther long term care pharmacist (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 therapyacutePeripheral edemaacuteHLD (hyperlipidemia)chronic HypertensionchronicHypothyroidismchronicInsomniaBerger Hospital Work Phone: Evaluation note* Diagnosis Onset Date Resolution Status Right otitis media acuteCystitisacuteDiabetes type 2, uncontrolledacuteOther spondylosis with radiculopathy, lumbar regionacuteRheumatismacuteInsomniachronic [facility] Work Phone: Evaluation note* Diagnosis Primary osteoarthritis involving multiple joints- Primary Fibromyalgia Mylagia and myositis, unspecified Type 2 diabetes mellitus without complication, with long-term current use of insulin (HCC) [facility] Diagnosis CLL (chronic lymphocytic leukemia) (HCC)- Primary Chronic lymphoid leukemia, without mention of having achieved remission [facility]* Diagnosis Cognitive impairment- Primary Unspecified persistent mental disorders due to conditions classified elsewhere Long-term use of high-risk medication documented in this encounter [facility] HealthcareEvaluation note* Diagnosis Diarrhea, unspecified type- Primary Constipation, unspecified constipation type documented in this encounter [facility] HealthcareEvaluation note* Diagnosis Memory loss- Primary Concentration deficit Word finding difficulty Other chronic pain Family history of dementia Family history of other neurological diseases documented in this encounter [facility] HealthcareEvaluation note* Diagnosis Cognitive impairment- Primary Unspecified persistent mental disorders due to conditions classified elsewhere documented in this encounter [facility] HealthcareEvaluation note* Diagnosis Onset Date Resolution Status Admit Date Cystitis acuteJanuary 2024 1:16pmIrritable bowel syndrome with diarrheaacuteJanuary 2024 1:16pmOther spondylosis with radiculopathy, lumbar regionacute Nelly 2024 1:16pm [facility] Work Phone: Evaluation note* Diagnosis Onset Date Resolution Status Admit Date Chronic kidney disease, stage 3b acuteApril 2024 3:41pmChronic lymphocytic leukemiaacuteApril 2024 3:41pmCystitisacuteApril 2024 3:41pmDiabetesacuteApril 2024 3:41pm Other spondylosis with radiculopathy, lumbar regionacuteApril 2024 3:41pm Peripheral edemaacuteApril 2024 3:41pmPremature beatacuteApril 2024 3:41pmRheumatismacuteApril 2024 3:41pmHLD (hyperlipidemia)chronicApril 2024 3:41pmHypertensionchronicApril 30th, 2025 3:41pmHypothyroidismchronic November 10, 2024 3:41pm [facility] Work Phone: Evaluation note* Diagnosis Fibromyalgia- Primary Mylagia and myositis, unspecified Primary osteoarthritis involving multiple joints Type 2 diabetes mellitus without complication, with long-term current use of insulin (HCC) Long-term use of Plaquenil Encounter for long-term (current) use of other medications [facility]* Diagnosis Diarrhea, unspecified type- Primary documented in this encounter [facility] HealthcareEvaluation note* Diagnosis Hill angioma- Primary Seborrheic keratosis Actinic keratosis Lentigines Lipoma of right upper extremity documented in this encounter [facility] HealthcareHistory general Narrative - Reported* Type Description Date Medical History pelvic exam done Medical Negldcn5206 mammogram-normalMedical Epwdhac2827 colonoscopy[address] Dhhtqhm[address]11 CT scan doneMedical Ogfhrgk5831 eye examMedical History-2009 Zostavax doneMedical Numdchr29-1373 Flu/H1N1 vaccineMedical History1-2010 mammogramMedical History1-2010 DEXA scanMedical HistoryFollows with Dr. Betts yearlyMedical Nmrojfy0-6-8366 Left femur FRMCMedical Ekimcll3-9-7738 Chest x-ray FRMedical History-2003 stress test-normal ([facility])Medical History Mammogram 2015 - Dr. FritzSuevansgical Historybilateral inguinal hernia sqxxeb0547 Surgical Historyleft zpdc6081Cpcrsmpg Bzmvzfapkupeotzwhqd4064Zvceuhbj History abdominal izsdxl6778Bunlhetz Historyhernia exwdii2552Ypaorfib History sokylohuuvpq3171Leopgxox Historyright knee replacement (Dr Antonio)1-2009 Surgical Historyleft total knee (Dr Hqaue)2-2011Surgical Historybil inguinal hernia necvxn8917Zlfggjbf Historylt rzcs1265Ocozttfx Historyright knee replacement- Dr. Noeld1-2009Surgical Historyleft total knee-Dr. Haque-[address] Frias03/24/17Surgical HistoryColonoscopy, Dr. Betts, colon gaefne3-4-5403Gzstjejbskybsdd Historysee irisnote Other History general Narrative - Reported* Type Description Date Medical History pelvic exam done Medical Rjqbywc9570 mammogram-normalMedical Fdqkfkq3971 colonoscopyMedical Cslebjj9552 CT scan doneMedical Wwdwcei2782 eye examMedical History-2009 Zostavax doneMedical Occroef46-5725 Flu/H1N1 vaccineMedical History-2010 mammogramMedical History-2010 DEXA scanMedical HistoryFollows with Dr. Betts yearlyMedical Klckplx5-1-2202 Left femur FRMCMedical Vydnmbb6-2-7522 Chest x-ray FRMCMedical History stress test-normal ([facility])Medical History Mammogram 2016 - Dr. FritzSurgical Historybilateral inguinal hernia riqikr7582 Surgical Historyleft gquq3708Bflyktle Xnfeqvyrvoowtxszxbt2699Knuxjukz History abdominal ebmhuj3079Qczlwklv Historyhernia zderjp1775Pnstufbr History glsymqqksabh8282Ykkwjqac Historyright knee replacement (Dr Antonio)1-2009 Surgical Historyleft total knee (Dr Haque)2-2011Surgical Historybil inguinal hernia mdhuvh2584Phtunoos Historylt mkuz6661Gpgdiszz Historyright knee replacement- Dr. Noeld1-2009Surgical Historyleft total knee-Dr. Haque2-[address] Frias03/24/17Surgical HistoryColonoscopy, Dr. Betts, colon wrlhuo9-1-1713Zfkteboycujbbvy Historysee aboveHospitalization Historyfx wrist and head laceration after a fall01/13/22 [employer] Other History general Narrative - Reported* Type Description Date Medical History pelvic exam done Medical Rddpcug7044 mammogram-normalMedical Alrkvpt4407 colonoscopyMedical Yxvtgbk2482 CT scan doneMedical Nqccpni6773 eye examMedical History Zostavax doneMedical Cvmofsv31-1371 Flu/H1N1 vaccineMedical History-2010 mammogramMedical History-2010 DEXA scanMedical HistoryFollows with Dr. Betts yearlyMedical Wgaiyct6-5-5510 Left femur FRMCMedical Vftmfag1-2-6842 Chest x-ray FRMedical History stress test-normal ([facility])Medical History Mammogram 2016 - Dr. FritzMedical HistoryLeukemiaSurgical Historybilateral inguinal hernia vacpxp2761Jbfkrxgx Historyleft kavc1086Rhdotxrq History maouzyhnxcjw8518Olbquqcp Historyabdominal tvafdw7219Vblbqwjq Historyhernia sutsjh6884Mqyklllo Pcppqamopwurvoickjj3171Aqzipqpc Historyright knee replacement (Dr Antonio)1-2009Surgical Historyleft total knee (Dr Haque)2-2011Surgical Historybil inguinal hernia twcdyz3626Sfsomrfn Historylt ncvs9408Rbzvbrqe History right knee replacement- Dr. Noeld1-2009Surgical Historyleft total knee-Dr. Haque 2-[address] Firas03/24/17Surgical HistoryColonoscopy, Dr. Betts, colon ojtukc1-1-3381Uctwbiorbglenne Historysee above Hospitalization Historyfx wrist and head laceration after a fall01/13/22 [employer] Other History general Narrative - Reported* Type Description Date Medical History pelvic exam done Medical Lmeaguc3245 mammogram-normalMedical Chgxiht3322 colonoscopyMedical Hwawori[address]43 CT scan doneMedical Jcgpora9605 eye examMedical History Zostavax doneMedical Uxrjoii12-0604 Flu/H1N1 vaccineMedical History-2010 mammogramMedical History-2010 DEXA scanMedical HistoryFollows with Dr. Betts yearlyMedical Qbplgfa9-6-7182 Left femur FRMedical Yswszqc5-0-2368 [facility] stress test-normal ([facility])Medical History Mammogram 2016 - Dr. FritzMedical HistoryLeukemiaMedical HistoryArthritis Medical Historydiabetes mallitusMedical Historyhigh cholesterolMedical History chronic depressionMedical Historythyroid diseaseSurgical Historybilateral inguinal hernia acvobl1759Axthyobt Historyleft evvl7252Njlhtlis History scdwcppxskjs9307Oulglfbw Historyabdominal rcfdos0863Ouxcrzro Historyhernia frifiv1177Plghaexi Nlzwxdeklwyzpdmzppu3825Rkgnryyv Historyright knee replacement (Dr Antonio)1-2009Surgical Historyleft total knee (Dr Haque)2-2011Surgical Historybil inguinal hernia kvmhud0383Ucrtsjnf Historylt dduf8075Gaamdlyt History right knee replacement- Dr. Noeld1-2009Surgical Historyleft total knee-Dr. Haque 2-[address] Frias03/24/17Surgical HistoryColonoscopy, Dr. Betts, colon qbbegh2-0-7407Haedadndcuudegh Historysee above Hospitalization Historyfx wrist and head laceration after a fall01/13/22 [employer] Other Hospital course Narrative No data available for this section [facility] Hospital Discharge instructionsUniversity [facility]als [facility] Work Phone: Hospital Discharge instructionsAmbulatory Orders* Referral to Sleep Medicine Time Frame: 02/05/24, Location: None [facility] Work Phone: Hospital Discharge instructionsAmbulatory Orders* Referral to General Surgery Time Frame: 04/05/24, Location: None [facility] Work Phone: Progress note No data available for this section [facility] reason for referral (narrative)* Diagnostic Procedure Only (Routine)StatusReasonSpecialtyDiagnoses / ProceduresReferred By Contact Referred To ContactPending Review Auto-Generated Referral XR IMAGING Diagnoses Pain in both knees, unspecified chronicity Procedures XR PELVIS 1V AP X-RAY PELVIS AP ONLY Dale Espinoza PA-C [address] [facility] [address] [place] [address] Xr Imaging * Diagnostic Procedure Only (Routine)StatusReasonSpecialtyDiagnoses / Procedures Referred By ContactReferred To ContactPending Review Auto-Generated Referral XR IMAGING Diagnoses Pain in both knees, unspecified chronicity Procedures XR KNEE GENERAL 4V AP BOTH/PA BOTH/LAT/MERC BILAT KNEE AP-WGT/LAT/LULUT Dale Espinoza PA-C [address] [place] [address] Xr Imaging [facility] for referral (narrative)* Diagnostic Procedure Only (Routine) - Pending ReviewSpecialtyDiagnoses / ProceduresReferred By Contact Referred To ContactBR IMAGING Diagnoses Encounter for screening mammogram for malignant neoplasm of breast Procedures SONYA SCREENING W NEYDA SCREENING DIGITAL BREAST TOMOSYNTHESIS BI SCREENING MAMMOGRAPHY BI 2-VIEW BREAST INC CAD Santos Lares MD [address] [place] [address] [facility] [address] [place] [address] Referral IDStatusReasonStart DateExpiration DateVisits RequestedVisits [id number] Review Auto-Generated Referral / * Diagnostic Procedure Only (Routine) - Pending ReviewSpecialtyDiagnoses / ProceduresReferred By ContactReferred To ContactBR IMAGING Diagnoses Axillary adenopathy Other signs and symptoms in breast Procedures US BREAST LTD LT US BREAST UNI REAL TIME WITH IMAGE LIMITED Santos Lares MD [address] [place] [address] [facility] [address] [place] [address] Referral IDStatusReasonStart DateExpiration DateVisits RequestedVisits [id number] Review Auto-Generated Referral / * Diagnostic Procedure Only (Routine) - Pending ReviewSpecialtyDiagnoses / ProceduresReferred By ContactReferred To ContactXR IMAGING Diagnoses Rib pain Procedures XR RIBS/CHEST 3V AP RIB/OBLS/CXR LEFT RADEX RIBS UNI W/POSTEROANT CH MINIMUM 3 VIEWS Santos Lares MD [address] [place] [address] Xr Imaging Referral IDStatusReasonStart DateExpiration DateVisits RequestedVisits [id number] Review Auto-Generated Referral / * Consult, Test, Treat (Routine) - AuthorizedSpecialtyDiagnoses / Procedures Referred By ContactReferred To ContactEnt - Otolaryngology Diagnoses Right ear pain Procedures CONSULT TO ENT OFFICE/OUTPATIENT [facility] 60-74 MINUTES Santos Lares MD [address] [place] [address] Referral IDStatusReasonStart DateExpiration DateVisits RequestedVisits [id number] PCP Requested Ref[facility] / [facility]ative)* Reason appt pt needs cons ult to see Homa Mckeon /Dr. Corea for evaluation of lumbar pain Diagnosis 1 Other spondylosis wi th radiculopathy, lumbar region (M47.26) Referral Organization [facility] Referring Provider First Name Ayanna Referring Provider Last Name Sakina Referring Provider Specialty Family Prac art Referred Organization [facility] urosurgery Referred Provider Homa Mckeon Referred Address [address],[address] Referred Provider Specialty Nurse Uli cotto Referral Priority Routine General Notes Nereyda Sanchez 04/15/2023 03:33:35 PM > referral sent p2p. pt understands she will be contacted to schedule this appt [place] [facility] Other Reason for referral (narrative)No reason for referral information availableUniversity Hospitals Samar[facility] Work Phone: Reason for visit Narrativereview labs, refill medication, discuss multiple issues, see treatment plan for further information [employer] [facility] [employer] Other Rezbut for visit NarrativePT HERE AT REQUEST OF DR VICENTE FOR EVALUATION AND TREATMENT OF CHANGE IN STOOL HABITS AND HISTORY OF IRRITABLE BOWEL SYNDROME AND COLON POLYPS, REFERRAL NOTE RECEIVEDNocitizens memorial healthcare [facility] Other Reason for visit Narrativereview labs/med refill, discuss multiple issues see treatment planNocitizens memorial healthcare [facility] Other Resixe for visit NarrativeNeurosurgery Referral Update [employer] Other reason for visit Narrative* Consultation (Routine) - ClosedSpecialtyDiagnoses / ProceduresReferred By ContactReferred To Contact Neurology Diagnoses Other amnesia Procedures [place] OFFICE/OUTPATIENT [facility] 30 MINUTES Ayanna Vicente MD [address] [place] [address] Phone: tel: fax: Babita Guillaume, DO [address] [place] [address] Phone: tel: fax: Referral IDStatusReasonStart DateExpiration DateVisits RequestedVisits [id number] Consult and Treat / [facility] HealthcareReason for visit Narrative* Consultation (Routine) - Closed SpecialtyDiagnoses / ProceduresReferred By ContactReferred To Contact Psychology Diagnoses Cognitive impairment Procedures [place] OFFICE/OUTPATIENT [facility] Babita Guillaume DO [address] [place] [address] Phone: tel: fax: Enrique Hammonds, PhD [address] [place] [phone] Phone: tel: fax: Referral IDStatusReasonStart DateExpiration DateVisits RequestedVisits [id number] Specialty Services Required / [facility] Summary Purpose Family History No Family History Records Found Relationship Condition Age at Onset Recorded Date/T maria g Not Specified History of inguinal hernia repair Unknow n DementiaUnknownInguinal herniaUnknown Relationship Condition Age at Onset Recorded Date/T maria g Not Specified History of inguinal hernia repair Unknow n DementiaUnknownInguinal herniaUnknownbrotherParkinson's diseaseUnknownfather Heart diseaseUnknownDeceasedUnknownFamily history of mental disorderUnknown grandparentDeceasedUnknownNot SpecifiedDeceasedUnknownMalignant neoplasmUnknown sisterDeceasedUnknown Relationship Condition Age at Onset Recorded Date/T maria g Not Specified History of inguinal hernia repair Unknow n DementiaUnknownInguinal herniaUnknownbrotherParkinson's diseaseUnknownfather Heart diseaseUnknownDeceasedUnknownFamily history of mental disorderUnknown grandparentDeceasedUnknownmotherDeceasedUnknownMalignant neoplasmUnknownsister DeceasedUnknown Advance Directives No Advanced Directives Records Found [...] in right hip (M 25.551) Referral Organization [facility] urosuger Referring Provider First Name Homa Referring Provider Last Name Mike Referring Provider Specialty Nurse Pract faraioner Referred Organization [facility] Referred Provider Bonnie Slade Referred Address [address] [place],[address] Referred Provider Specialty Pain Medicin e Referral Priority Routine General Notes Susan Ugarte 04:33:20 PM >received today, holding referral for todays visit note to be locked Reason evaluate and t reat for hip pain Diagnosis 1 Pain in right hip (M 25.551) Referral Organization [facility] urosurgery Referring Provider First Name Homa Referring Provider Last Name Mike Referring Provider Specialty Nurse Pract itioner Referred Organization [facility] Ortho ped[facility] Referred Provider Gume Macedo Referred Address [address],[place],[address] Referred Provider Specialty Orthopedic S urgery Referral Priority Routine General Notes Susan Ugarte 04:34:14 PM >received today, sending p2p at this time for scheduling Reason Aqua therapy - evalu ate and treat Diagnosis 1 Pain in right hip (M 25.551) Diagnosis 2 Lumbar pain (M54.50) Referral Organization [facility] urosurger Referring Provider First Name Homa Referring Provider Last Name Mike Referring Provider Specialty Nurse Pract itioner Referred Organization [facility] Referred Address [address] [place], [place],[address] Referred Provider Specialty Physical The rapist Referral Priority Routine Reason appt pt would like to discuss hip, back, knee and sciatic pain Diagnosis 1 Other spondylosis wi th radiculopathy, lumbar region (M47.26) Referral Organization [facility] Referring Provider First Name Ayanna Referring Provider Last Name Sakina Referring Provider Specialty Family Prac art Referred Organization [facility] urosurgery Referred Provider Homa Mckeon Referred Address [address] ,[place],[address] Referred Provider Specialty Nurse Uli cotto Referral Priority Routine General Notes Nereyda Sanchez 07/16/2023 03:06:01 PM > referral sent p2p. pt understands she will be contacted to schedule this appt Reason appt pt is lu gilliam to see any of the providers consult for eval and treatment of rheumatism/prescribing of Plaquenil Diagnosis 1 Rheumatism, unspecif ied (M79.0) Referral Organization [facility] [place] Referring Provider First Name Ayanna Referring Provider Last Name Sakina Referring Provider Specialty Family Prac art Referred Organization [facility] Referred Provider Esteban Saravia Referred Address [address] [place],[address] Referred Provider Specialty Rheumatology Referral Priority Routine [...] Wrist fracture, righ t (S62.101A) Referral Organization [facility] [employer] [place] Referring Provider First Name Ayanna Referring Provider Last Name Sakina Referring Provider Specialty Family Prac art Referred Organization [facility] Referred Provider Penny Mike Referred Address [address] [facility] [place],[address] Referred Provider Specialty Hand Surgery Referral Priority [...] th radiculopathy, lumbar region (M47.26) Referral Organization [facility] [place] Referring Provider First Name Ayanna Referring Provider Last Name Sakina Referring Provider Specialty Family Prac art Referred Organization [facility] Referred Provider Anthony Morales Referred Address [address] [place],[address] Referred Provider Specialty Psychiatry, Neurology (Osteopaths only) [...] Leukocytosis (D72.82 9) Referral Organization [facility] [employer] [facility] [place] Referring Provider First Name Ayanna Referring Provider Last Name Sakina Referring Provider Specialty Family Prac art Referred Organization [facility] Referred Provider Saqib Coleman Referred Address [address],[place],[address] Referred Provider Specialty Hematology/O ncology Referral Priority Routine General Notes eNreyda Sanchez 04/02/2022 02:41:02 PM > referral faxed with visit note, last several lab results and insurance cards. pt does not have a preference for whom she see and does understand that she will be contacted to schedule this appt. Reason appt pt needs cons ult to evaluate right knee pain Diagnosis 1 Knee pain, right (M2 5.561) Referral Organization [facility] [place] Referring Provider First Name Ayanna Referring Provider Last Name Sakina Referring Provider Specialty Family Prac art Referred Organization [facility] Referred Provider Zohaib Akins II Referred Address [address] [place], [place],[address] Referred Provider Specialty Orthopedic S urgery Referral Priority Routine General Notes Nereyda Sanchez 02/06/2022 02:16:49 PM > referral sent p2p. pt understands she will be contacted to schedule this appt. Reason appt pt needs cons ult to discuss change in stool habits, history of colon polyps, hx of IBS Diagnosis 1 Change in stool jacquie yesi (R19.4) Referral Organization [facility] Family [facility] [place] Referring Provider First Name Ayanna Referring Provider Last Name Sakina Referring Provider Specialty Family Prac art Referred Organization [facility] Gastroenterolo gy Referred Provider Ayanna Milner Referred Address [address] ,[place], [place],[address] Referred Provider Specialty Gastroentero logy Referral Priority Routine General Notes Nereyda Sanchez 09/13/2021 09:46:36 AM > referral sent p2p. pt will be contacted to schedule this appt. Chief Complaint and Reason for Visit Chief Complaint fall, rt wrist pain R Radical Fx/Head Injury S/P/ fall E03.9 E11.65 E78.5 D64.9 R79.89Reason for VisitAbrasion Acute hypotension Acute UTI TIP (acute kidney [...] S/P/ fall E03.9 E11.65 E78.5 D64.9 R79.89 E11.65Reason for VisitAcute UTI Chronic back pain Depression Diabetic neuropathy [...] E03.9 R79.89 N30.90 Amb Documentation review labs/med refillReason for VisitChronic lymphocytic leukemia Cystitis Diabetes type 2, uncontrolled Lumbar disc disease with radiculopathy Neuropathy Other abnormal blood chemistry Other fci (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 therapy Peripheral edema HLD (hyperlipidemia) Hypertension Hypothyroidism Insomnia Chief Complaint Amb Documentation E11.65 E78.5 E03.9 R79.89 N30.90 Amb Documentation review labs/med refill sore throat, congestion, coughReason for VisitChronic lymphocytic leukemia Cystitis Diabetes type 2, uncontrolled Lumbar disc disease with radiculopathy Neuropathy Other abnormal blood chemistry Other fci (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 therapy Peripheral edema HLD (hyperlipidemia) Hypertension Hypothyroidism Insomnia Right otitis media Chief Complaint sore throat, congest ion, cough discuss meds/refillReason for VisitRight otitis media Cystitis Diabetes type 2, uncontrolled Other spondylosis with radiculopathy, lumbar region Rheumatism Insomnia Chief Complaint sore throat, congest ion, cough discuss meds/refill diabetic shoesReason for VisitRight otitis media Cystitis Diabetes type 2, uncontrolled Other spondylosis with radiculopathy, lumbar region Rheumatism Insomnia Diabetes Onychomycosis Peripheral neuropathy Chief Complaint sore throat, congest ion, cough discuss meds/refill diabetic shoes back pain/IBSReason for VisitRight otitis media Cystitis Diabetes type 2, uncontrolled Other spondylosis with radiculopathy, lumbar region Rheumatism Insomnia Diabetes Onychomycosis Peripheral neuropathy Cystitis Irritable bowel syndrome with diarrhea Other spondylosis with radiculopathy, lumbar region Chief Complaint diabetic shoes back pain/IBS z79.89Reason for VisitDiabetes Onychomycosis Peripheral neuropathy Cystitis Irritable bowel syndrome with diarrhea Other spondylosis with radiculopathy, lumbar region Chief Complaint diabetic shoes back pain/IBS z79.89 review labs/med refillReason for VisitDiabetes Onychomycosis Peripheral neuropathy Cystitis Irritable bowel syndrome with diarrhea Other spondylosis with radiculopathy, lumbar region Cystitis Diabetes type 2, uncontrolled Hip pain, left Knee pain, left Memory changes Other abnormal blood chemistry Other spondylosis with radiculopathy, lumbar region HLD (hyperlipidemia) Hypothyroidism Chief Complaint diabetic shoes back pain/IBS z79.89 review labs/med refill G47.00Reason for VisitDiabetes Onychomycosis Peripheral neuropathy Cystitis Irritable bowel syndrome with diarrhea Other spondylosis with radiculopathy, lumbar region Cystitis Diabetes type 2, uncontrolled Hip pain, left Knee pain, left Memory changes Other abnormal blood chemistry Other spondylosis with radiculopathy, lumbar region HLD (hyperlipidemia) Hypothyroidism Chief Complaint diabetic shoes back pain/IBS z79.89 review labs/med refill G47.00 Z12.31Reason for VisitDiabetes Onychomycosis Peripheral neuropathy Cystitis Irritable bowel syndrome [...] r 2023 1:35pm Chief Complaint Admit Date Z.May 18, 2024 2 :22pm M25.552 - Pain [...] 2024 3:4 1pm Other spondylosis with radiculopathy, [facility] November 10, 2024 3:41pm Peripheral edema [...] 2024 3:4 1pm Other spondylosis with radiculopathy, [facility] November 10, 2024 3:41pm Peripheral edema [...] 3pm Diabetes February 15, 2025 2:4 3pm Chief Complaint Admit Date RENAL 6 WEEK F/U January 27, 2025 1:47 pm med refill February 15, 2025 2:4 3pm cough, congestion April 26, 2025 1 :42pm Reason for Visit Admit Date Chronic kidney disease, stage 3b January 272024 [...] 3pm Diabetes February 15, 2025 2:4 3pm Reason for Visit Admit Date Chronic kidney disease, stage 3b January 272024 1:47pm Hyperkalemia January 27, 2025 1:47 pm Hypertensive chronic 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 4 chronic ki January 27, 2025 1:47pm Type 2 diabetes mellitus wit h diabetic chronic kidney disease January 27, 2025 1:47pm HLD (hyperlipidemia) January 27, 2025 1:4 7pm Vitamin D deficiency January 27, 2025 1:4 7pm Hydradenitis February 15, 2025 2:4 3pm Lumbar degenerative disc disease February 15, 2025 2:43pm Neuropathy February 15, 2025 2:4 3pm Overactive bladder February 15, 2025 2:4 3pm Diabetes February 15, 2025 2:4 3pm Bronchiolitis April 26, 2025 1 :42pm Chief Complaint Admit Date med refill February [...] 1:49am Bronchiolitis April 28, 2025 1 1:49am Additional Source Comments INFORMATION SOURCE (unrecogn ized section and content) DATE CREATED AUTHOR 01/06/2021 [facility] DATE CREATED AUTHOR AUTHOR'S ORGANIZ ATION 08/16/2022 [facility] DATE CREATED AUTHOR AUTHOR'S ORGANIZ ATION 11/13/2022 [facility] DATE CREATED AUTHOR AUTHOR'S ORGANIZ ATION 12/18/2024 [facility] DATE CREATED AUTHOR AUTHOR'S ORGANIZ ATION 02/10/2025 [facility] DATE CREATED AUTHOR AUTHOR'S ORGANIZ ATION 03/27/2025 [facility] DATE CREATED AUTHOR AUTHOR'S ORGANIZ ATION 04/21/2025 [facility] DATE CREATED AUTHOR AUTHOR'S ORGANIZ ATION 05/05/2025 [facility] Source Comments (unrecognize d section and content) In the event this informatio n is protected by the Federal Confidentiality of Alcohol and Drug Abuse Patient Records regulations: The Federal rules restrict any use of the information to criminally investigate or prosecute any alcohol or drug abuse patient.[facility] the event this information is protected by the Federal Confidentiality of Alcohol and Drug Abuse Patient Records regulations: The Federal rules restrict any use of the information to criminally investigate or prosecute any alcohol or drug abuse patient.[facility] the event this information is protected by the Federal Confidentiality of Alcohol and Drug Abuse Patient Records regulations: The Federal rules restrict any use of the information to criminally investigate or prosecute any alcohol or drug abuse patient.[facility] the event this information is protected by the Federal Confidentiality of Alcohol and Drug Abuse Patient Records regulations: The Federal rules restrict any use of the information to criminally investigate or prosecute any alcohol or drug abuse patient.[facility] the event this information is protected by the Federal Confidentiality of Alcohol and Drug Abuse Patient Records regulations: The Federal rules restrict any use of the information to criminally investigate or prosecute any alcohol or drug abuse patient.[facility] the event this information is protected by the Federal Confidentiality of Alcohol and Drug Abuse Patient Records regulations: The Federal rules restrict any use of the information to criminally investigate or prosecute any alcohol or drug abuse patient.[facility] the event this information is protected by the Federal Confidentiality of Alcohol and Drug Abuse Patient Records regulations: The Federal rules restrict any use of the information to criminally investigate or prosecute any alcohol or drug abuse patient.[facility] the event this information is protected by the Federal Confidentiality of Alcohol and Drug Abuse Patient Records regulations: The Federal rules restrict any use of the information to criminally investigate or prosecute any alcohol or drug abuse patient.[facility] the event this information is protected by the Federal Confidentiality of Alcohol and Drug Abuse Patient Records regulations: The Federal rules restrict any use of the information to criminally investigate or prosecute any alcohol or drug abuse patient.[facility] the event this information is protected by the Federal Confidentiality of Alcohol and Drug Abuse Patient Records regulations: The Federal rules restrict any use of the information to criminally investigate or prosecute any alcohol or drug abuse patient.[facility] the event this information is protected by the Federal Confidentiality of Alcohol and Drug Abuse Patient Records regulations: The Federal rules restrict any use of the information to criminally investigate or prosecute any alcohol or drug abuse patient.[facility] the event this information is protected by the Federal Confidentiality of Alcohol and Drug Abuse Patient Records regulations: The Federal rules restrict any use of the information to criminally investigate or prosecute any alcohol or drug abuse patient.[facility] REASON FOR VISIT (unrecogniz ed section and content) ReasonCommentsConsultReasonCommentsCare CoordinationResultsReasonComments lymphocytosisReasonCommentsLeukemia3 month follow upReasonCommentsReferral InformationENTReasonCommentsCLL (chronic lymphocytic leukemia)ReasonComments Toenail CareReasonCommentsJoint PainReasonCommentsLeukemiaTransition Of Care ReasonCommentsSchedule colonoscopy, hx of colon polypsReasonCommentsCognitive ImpairmentReasonCommentsRecords faxedReasonCommentsOsteoarthritisReasonComments Schedule colonoscopyReasonCommentsSkin Check Care Teams (unrecognized sec tion and content) Team Status: Active Member Role Status Dates Ayanna Vicente DO Primary Care Provider Active Team Status: Active Member Role Status Dates Ayanna Vicente DO Primary Care Provider Active S tart: February 09, 2025 AndYamilet Chouending ProviderActiveStart: February 09, 2025 Team Status: Inactive Member Role Status Dates Ayanna Vicente DO Primary Care Provider Active S tart: February 15, 2025 End: February 15, 2025Ayanna Vicente DOAttfiliberto ProviderActiveStart: February 15, 2025 End: February 15, 2025 Team Status: Active Member Role Status Dates Ayanna Vicente DO Primary Care Provider Active S tart: March 16, 2025 AndYamilet Chouending ProviderActiveStart: March 16, 2025 Team Status: Inactive Member Role Status Dates Ayanna Vicente DO Primary Care Provider Active S tart: April 26, 2025 End: April 26Héctor Ortiz ProviderActiveStart: April 26, 2025 End: April 26, 2025 Team Status: Inactive Member Role Status Kayla Vicente DO Primary Care Provider Active S tart: April 28, 2025 End: April 28, 2025Daperi Vicente DOAttending ProviderActiveStart: April 28, 2025 End: April 28, 2025 Team Status: Inactive Member Role Status Dates Ayanna Vicente DO Primary Care Provider Active S tart: December 16, 2024 End: December 16bdul Mickey , MDAttending ProviderActiveStart: December 16, 2024 End: December 16, 2024 Team Status: Active Member Role Status Kayla Vicente DO Primary Care Provider Active S tart: January 17, 2025 Lesli Mickey , MDAttending ProviderActiveStart: January 17, 2025 Team Status: Inactive Member Role Status Kayla Vicente DO Primary Care Provider Active S tart: January 19, 2025 End: January 19, 2025Frnat Betts DOAttending ProviderActiveStart: January 19, 2025 End: January 19, 2025 Team Status: Inactive Member Role Status Kayla Vicente DO Primary Care Provider Active S tart: January 27, 2025 End: January 27bdul Mickey , MDAttending ProviderActiveStart: January 27, 2025 End: January 27, 2025 Team Status: Active Member Role Status Kayla Vicente DO Attending Provider Active Star t: November 01, 2024 Team Status: Inactive Member Role Status Kayla Vicente DO Primary Care Provider Active S tart: November 10, 2024 End: November 10, 2024Daperi Vicente DOAttending ProviderActiveStart: November 10, 2024 End: November 10, 2024 [...] Active Member Role Status Dates Ayanna Vicente Primary Care Provide r, Attending Provider Active Start: May 26, 2024 Team Status: Inactive Member Role Status Dates Tri Ag DO Attending Provider Active Start: June 15, 2024 End: June 15, 2024 Team Status: Active Member Role Status Dates Ayanna Vicente DO Primary Care Provider Active S tart: June 15, 2024 Tri Ag , DOAttending ProviderActiveStart: June 15, 2024 Team Status: Active Member [...] Status: Inactive Member Role Status Dates Ayanna Sakina DO Primary Care Provider, Family Provid er Active Megan Armando Provider, Attending ProviderActiveRachel Penn , RN Other ProviderActiveJosette Orourke RNOther ProviderActiveEstrellita Camejo , ALLYSSA Other ProviderActiveNy Das RNOther ProviderActiveMarcie Acosta RNOther ProviderActiveMoantonio Wall RNOther ProviderActiveRaariane Hale MD Other ProviderActiveAnataqueria Kevin MDOther ProviderActiveLisa M Prasanths , GRAPHICS PRODUCTION SPECIALIST Other ProviderActiveRonsherine Juarez , DOOther ProviderActiveMusneris Hernandez MD Other ProviderActiveLoco Velasquez , DOOther ProviderActiveElgin Irby MDOther ProviderActiveAdali Salamanca MDOther ProviderActiveLyART Mayorga-BCOther ProviderActiveMax Paulino MDOther ProviderActiveFaisal Abel MDOther ProviderActiveBertram Garrison MDOther ProviderActiveBobby Guevara MD Other ProviderActiveTheric Chaparro MDOther ProviderActiveFirmaria alejandra Rock MDOther ProviderActiveEarcar Burnett MDOther ProviderActiveAmy Alhaji Najera , WINE MANAGER-COther ProviderActiveFredertrish Winslow MDOther ProviderActiveJoss Stoner MD Other ProviderActiveTerrie Hua MDOther ProviderActiveChase Glover MDOther ProviderActiveMeron Estrada , DOOther ProviderActiveHasmukh Palacios MD Other ProviderActiveNeal R Anita , DOOther ProviderActiveLinda Obika , GRAPHICS PRODUCTION SPECIALIST Other ProviderActiveShawn Alhaji Fontaine , DOOther ProviderActiveObaydah Wilfredo De Los Santos MDOther ProviderActiveKathy Taylor , ALLYSSAOther ProviderActiveTheric Corral MD Other ProviderActiveCollshan Mike MDOther ProviderActiveJennifer Car Quarles , WINE MANAGER-COther ProviderActiveJustramila Macedo , DOOther ProviderActiveRobert Wilfredo Akins II, MDOther ProviderActive Team Status: Inactive Member Role Status Dates Ayanna Vicente DO Primary Care Provider, Family Provid er Active Butch Redding MDEmergency ProviderActiveBertram Garrison MDAdmit Provider, Attending ProviderActive Team Status: Active Member Role Status Dates Ayanna Vicente , Family Provider Active [facility] ProviderActiveTeam MemberRelationshipSpecialty Start DateEnd Date Ayanna Vicente, DO [address] [place] [address] PCP - [facility]08/01/11 Ayanna Vicente, DO [address] [place] [address] ReferringFami Medicine10/04/20 Ayanna Vicente, DO [address] [place] [address] ReferringF[facility] Medicine01/09/21Team MemberRelationshipSpecialtyStart DateEnd Date Ayanna Vicente, DO [address] [place] [address] PCP - [facility]08/01/11 Ayanna Vicente, DO [address] [place] [address] ReferringF[facility] Medicine10/04/20 Ayanna Vicente, DO [address] [place] [address] [facility]erring[facility]01/09/21Team MemberRelationshipSpecialtyStart DateEnd Date Ayanna Vicente, DO [address] [place] [address] PCP - [facility]08/01/11 Ayanna Vicente, DO [address] [place] [address] ReferringS[facility]10/04/20 Ayanna Vicente, DO [address] [place] [address] ReferringS[facility]01/09/21Team MemberRelationshipSpecialtyStart DateEnd Date Ayanna Vicente, DO [address] [place] [address] PCP - [facility]08/01/11 Ayanna Vicente, DO [address] [place] [address] ReferringS[facility]10/04/20 Ayanna Vicente, DO [address] [place] [address] ReferringS[facility]01/09/21 Team Status: Inactive Member Role Status Dates Ayanna Vicente DO Primary Care Provider, Family Provid er Active Laureen Wang ProviderActive Team Status: Inactive Member Role Status Dates Ayanna Vicente DO Primary Care Provider, Family Provid er Active Esvin Dubon WINE MANAGER-CAttending ProviderActiveTeam MemberRelationshipSpecialty Start DateEnd Date Ayanna Vicente, DO [address] [place] [address] PCP - [facility]08/01/11 Ayanna Vicente, DO [address] [place] [address] [facility]10/04/20 Ayanna Vicente, DO [address] [place] [address] [facility]01/09/21Team MemberRelationshipSpecialtyStart DateEnd Date Ayanna Vicente MD [address] [place] [address] PCP - [facility]12/10/22Team MemberRelationshipSpecialtyStart DateEnd Date Ayanna Vicente MD [address] [place], [place] [id number] PCP - [facility]12/10/22 Team Status: Inactive Member Role Status Dates VERNON VasquezC Attending Provider Active Start: August 12, 2023 End: August 12, 2023 Team Status: Active Member Role Status Dates Ayanna Vicente DO Primary Care Provider Active S tart: October 13, 2023 Dipti Oleary ProviderActiveStart: October 13, 2023 Team Status: Active Member Role Status Dates Ayanna Vicente DO Primary Care Provider Active S tart: October 16, 2023 Dipti Oleary ProviderActiveStart: October 16, 2023 Team Status: Inactive Member Role Status Dates Ayanna Vicente DO Primary Care Provide r, Attending Provider Active Start: October 17, 2023 End: October 17, 2023 Team Status: Active Member Role Status Dates Ayanna Vicente DO Primary Care Provider Active S tart: October 20, 2023 Dipti Oleary ProviderActiveStart: October 20, 2023 Team Status: Inactive Member Role Status Dates Ayanna Vicente DO Primary Care Provide r, Attending Provider Active Start: October 21, 2023 End: October 21, 2023 Team Status: Inactive Member Role Status Dates Ayanna Vicente DO Primary Care Provider Active S tart: January 12, 2024 End: January 12, 2024Letitia Héctor Johnson ProviderActiveStart: January 12, 2024 End: January 12, 2024 [...] S tart: May 12, 2024 End: May 12Little Abraham Care Provider, Referring ProviderActiveStart: May 12, 2024 End: May 12, 2024Team MemberRelationshipSpecialtyStart DateEnd Date Ayanna Vicente DO [address] [place] [address] [facility]08/01/11 Ayanna Vicente DO [address] [place] [address] ReferringFamily Medicine10/04/20 Ayanna Vicente, DO [address] [place] [address] ReferringFamily Medicine01/09/21Team MemberRelationshipSpecialtyStart DateEnd Date Ayanna Vicente, DO [address] [place] [address] PCP - [facility]08/01/11 Ayanna Vicente, DO [address] [place] [address] [facility]/04/20 Ayanna Vicente, DO [address] [place] [address] [facility]erring[facility]01/09/21Team MemberRelationshipSpecialtyStart DateEnd Date Ayanna Vicente, [address] [place] [address] [facility] Ayanna Vicente, DO [address] [place] [address] ReferringFami Medicine10/04/20 Ayanna Vicente, DO [address] [place] [address] ReferringF[facility] Medicine01/09/21Team MemberRelationshipSpecialtyStart DateEnd Date Ayanna Vicente MD [address] [place] [address] PCP - GeneralFamily Medicine12/10/22Team MemberRelationshipSpecialtyStart DateEnd Date Ayanna Vicente MD [address] [place] [address] PCP - GeneralFamily Medicine12/10/22Team MemberRelationshipSpecialtyStart DateEnd Date Ayanna Vicente MD [address] [place] [address] PCP - [facility]12/10/22Team MemberRelationshipSpecialtyStart DateEnd Date Ayanna Vicente MD [address] [place] [address] PCP - [facility] Medicine12/10/22Team MemberRelationshipSpecialtyStart DateEnd Date Ayanna Vicente MD [address] [place] [address] PCP - GeneralFamily Medicine12/10/22Team MemberRelationshipSpecialtyStart DateEnd Date Ayanna Vicente MD [address] [place] [address] PCP - GeneralFamily Medicine12/10/22Team MemberRelationshipSpecialtyStart DateEnd Date Ayanna Vicente MD [address] [place] [address] PCP - GeneralFamily Medicine12/10/22 Babita Guillaume DO [address] [place] [address] Referring PhysicianNeurology1Team MemberRelationshipSpecialtyStart DateEnd Date Ayanna Vicente MD [address] [place] [address] PCP - Generalmily Medicine12/10/22 Babita Guillaume, [address] [place], [place] [address], [place] [address] Referring PhysicianNeurology1 Team Status: Active Member Role Status Dates [...] Start: November 10, 2024 End: November 10, 2024Team MemberRelationshipSpecialtyStart DateEnd Date Ayanna Vicente, [address] [place] [address] PCP - [facility]08/01/11 Ayanna Vicente, [address] [place] [address] ReferringFamily Medicine10/04/20 Ayanna Vicente, [address] [place] [address] ReferringFamily Medicine01/09/21Team MemberRelationshipSpecialtyStart DateEnd Date Ayanna Vicente, [address] [place] [address] PCP - GeneralFamily Medicine08/01/11 Ayanna Vicente DO [address] [place] [address] ReferringFamily Medicine10/04/20 Ayanna Vicente DO [address] [place] [id number] ReferringFamily Medicine01/09/21Team MemberRelationshipSpecialtyStart DateEnd Date Ayanna Vicente MD [address] [place], [place] [id number] PCP - GeneralFamily Medicine12/10/22 Babita Guillaume DO [address] [place], [place] [address], [place] [address] Referring PhysicianNeurology1Team MemberRelationshipSpecialtyStart DateEnd Date Ayanna Vicente MD [address] [place], [place] [id number] PCP - GeneralFamily Medicine12/10/22 Babita Guillaume DO [address] [place], [place] [address], [place] [address] Referring PhysicianNeurology1Team MemberRelationshipSpecialtyStart DateEnd Date Ayanna Vicente MD [address] [place] [address] PCP - GeneralFamily Medicine12/10/22 Babita Guillaume DO [address] [address] Referring PhysicianNeurolog08/09/24Team MemberRelationshipSpecialtyStart DateEnd Date Ayanna Vicente MD [address] [place] [address] [place] [address] PCP - GeneralFamily Medicine12/10/22 Babita Guillaume DO [address] [place], [place] [id number] Referring PhysicianNeurolog08/09/24 Team Status: Active Member Role Status Dates Ayanna Vicente DO Primary Care Provider Active S tart: April 26, 2025 Mckenzie Christopher APRNAttenluz ProviderActiveStart: April 26, 2025 Goals (unrecognized section and content) Goals [...] BE BASED ON THE PRIMARY CLINICAL RECORDS. [employer] provides no warranty or guarantee of the accuracy or completeness of information in this document.
--- NOTE | 2025-05-12 09:11 | PM.CN ---
Consult Note: HPI Data of Consult Patient: known to practice within the last 3 years Consult date: 05/12/25 Requesting Physician: Helen De La Paz NP Primary Care Provider: AYANNA VICENTE Consult Narrative Reason for consult: scs f/u Narrative: Kathy Washburn a pleasant 84 year old female presents for evaluation and management of chronic low back, right hip pain, and RLE pain. Recently underwent scs placement which is providing significant improvement ongoing, now utilizing percocet 3/week and lyirca 225mg BID. notes 2 falls without injury since last visit due to losing her balance. cc:: CC: Helen De La Paz NP Review of Systems ROS Musculoskeletal Denies: back pain or extremity pain PFSH [facility] Medical History (Updated 05/12/25 @ 09:12 by Helen De La Paz NP) Post laminectomy syndrome ?M96.1 - Postlaminectomy syndrome, not elsewhere classified (ICD-10) Failed back syndrome ?M96.1 - Postlaminectomy syndrome, not elsewhere classified (ICD-10) History of blood transfusion ?Z92.89 - Personal history of other medical treatment (ICD-10) Chronic kidney disease ?N18.9 - Chronic kidney disease, unspecified (ICD-10) Extremity edema ?R60.0 - Localized edema (ICD-10) Activity intolerance ?R68.89 - Other general symptoms and signs (ICD-10) Fibromyalgia ?M79.7 - Fibromyalgia (ICD-10) Irritable bowel syndrome with diarrhea ?K58.0 - Irritable bowel syndrome with diarrhea (ICD-10) Leukocytosis ?D72.829 - Elevated white blood cell count, unspecified (ICD-10) Leukemia ?C95.90 - Leukemia, unspecified not having achieved remission (ICD-10) Lung nodule ?R91.1 - Solitary pulmonary nodule (ICD-10) Migraine ?G43.909 - Migraine, unspecified, not intractable, without status migrainosus (ICD-10) Insomnia ?G47.00 - Insomnia, unspecified (ICD-10) Depression ?F32.A - Depression, unspecified (ICD-10) Hypothyroidism (acquired) ?E03.9 - Hypothyroidism, unspecified (ICD-10) Chronic back pain ?M54.9 - Dorsalgia, unspecified (ICD-10) ?G89.29 - Other chronic pain (ICD-10) Hyperlipidemia ?E78.5 - Hyperlipidemia, unspecified (ICD-10) Anemia ?D64.9 - Anemia, unspecified (ICD-10) Osteoarthritis ?M19.90 - Unspecified osteoarthritis, unspecified site (ICD-10) Chronic lymphocytic leukemia ?C91.10 - Chronic lymphocytic leukemia of B-cell type not having achieved remission (ICD-10) Diabetes ?E11.9 - Type 2 diabetes mellitus without complications (ICD-10) Former smoker ?Z87.891 - Personal history of nicotine dependence (ICD-10) High cholesterol ?E78.00 - Pure hypercholesterolemia, unspecified (ICD-10) Hypertension ?I10 - Essential (primary) hypertension (ICD-10) Surgical History History of radiofrequency ablation (RFA) of nerve of lumbar spine ?Z98.890 - Other specified postprocedural states (ICD-10) S/P epidural steroid injection ?Z92.241 - Personal history of systemic steroid therapy (ICD-10) History of cataract extraction with lens replacement History of appendectomy ?Z90.49 - Acquired absence of other specified parts of digestive tract (ICD-10) H/O colonoscopy ?Z98.890 - Other specified postprocedural states (ICD-10) History of total knee arthroplasty ?Z96.659 - Presence of unspecified artificial knee joint (ICD-10) History of hernia repair ?Z98.890 - Other specified postprocedural states (ICD-10) ?Z87.19 - Personal history of other diseases of the digestive system (ICD-10) S/P lumbar fusion ?Z98.1 - Arthrodesis status (ICD-10) S/P hernia surgery ?Z98.890 - Other specified postprocedural states (ICD-10) ?Z87.19 - Personal history of other diseases of the digestive system (ICD-10) H/O: hysterectomy ?Z90.710 - Acquired absence of both cervix and uterus (ICD-10) Family History Other Family history of Parkinson disease Family history of cancer Family history of hypertension Family history of myocardial infarction Family history of stroke Heart disease Social History Within the past year, how often did you have a drink containing alcohol: monthly or less Smoking status: Never smoker Non-prescribed substance use: denies use Highest level of school completed/degree received: high school graduate Little interest or pleasure in doing things: not at all Feeling down, depressed, or hopeless: not at all Meds Home Medications and Allergies Home Medications ?Medication ?Instructions ?Recorded ?Confirmed ?Type B-complex with vitamin C 1 tab PO DAILY 08/25/23 03/21/25 History aspirin 81 mg tablet,delayed 81 mg PO DAILY 08/25/23 03/21/25 History release atorvastatin 20 mg tablet (Lipitor) 20 mg PO DAILY 08/25/23 03/21/25 History cholecalciferol (vitamin D3) 125 125 mcg PO DAILY 08/25/23 03/21/25 History mcg (5,000 unit) capsule ezetimibe 10 mg tablet (Zetia) 10 mg PO DAILY 08/25/23 03/21/25 History levothyroxine 100 mcg tablet 100 mcg PO DAILY 08/25/23 03/21/25 History (Synthroid) lisinopril 10 mg tablet 10 mg PO DAILY 08/25/23 03/21/25 History multivitamin 1 tab PO DAILY 08/25/23 03/21/25 History oxycodone-acetaminophen 5 mg-325 1 tab PO BID PRN pain 08/25/23 03/21/25 History mg tablet pregabalin 225 mg capsule (Lyrica) 225 mg PO BID 08/25/23 03/21/25 History propranolol 60 mg tablet 60 mg PO DAILY 08/25/23 03/21/25 History triamterene 37.5 1 tab PO DAILY 08/25/23 03/16/25 History mg-hydrochlorothiazide 25 mg tablet (Maxzide-25mg) venlafaxine 75 mg capsule,extended 75 mg PO DAILY 08/25/23 03/21/25 History release 24 hr (Effexor XR) zolpidem 5 mg tablet 5 mg PO DAILY 08/25/23 03/21/25 History insulin glargine 100 unit/mL (3 36 unit subcut QPM 02/09/25 03/21/25 History mL) subcutaneous pen (Lantus Solostar U-100 Insulin) magnesium oxide 400 mg (241.3 mg 400 mg PO DAILY 02/09/25 03/21/25 History magnesium) tablet metformin 1,000 mg tablet 1,000 mg PO BID 03/16/25 03/21/25 History clindamycin HCl 300 mg capsule 300 mg PO BID #14 caps 03/21/25 Rx Allergies Allergy/AdvReac Type Severity Reaction Status Date / Time cefpodoxime (From Vantin) Allergy Unknown Unknown Verified 03/16/25 08:24 Exam Constitutional Documenting provider has reviewed patient's vital signs: yes Common normals: no apparent distress, oriented x3, healthy appearing, alert and well nourished General appearance: cooperative HENMT Common normals: normocephalic, hearing grossly normal bilaterally and moist oral mucous membranes Head and scalp: normocephalic Eye Common normals: PERRL Pupil: PERRL Neck & C-Spine Common normals: full ROM General: normal visual inspection Chest Common normals: inspection of chest normal Respiratory Common normals: normal respiratory effort, no retractions and no use of accessory muscles Back & Pelvis Lumbar spine/lower back: straight leg raise negative bilaterally; ROM not limited, no pain with ROM and no lumbar spinal tenderness Other: strength 5/5 in BLE sensation intact BLE Neuro Common normals: oriented x3 Sensorium/orientation: alert Gait (neuro): assistive device used cane Psych Common normals: mental status grossly normal, thought process normal, cooperative, affect normal, speech normal and activity/motor behavior normal Speech: normal speech Thought process: normal thought process Results Additional Findings Additional findings: If on a controlled substance or opioids, I have checked an [place] report on this patient and there are no aberrancies noted in the prescribing history.??If on a controlled substance or opioid a drug screen was completed and reviewed within the last year, and if there has not been a drug screen completed we ordered one today to monitor higher risk, state monitored pain medication use. As part of providing excellent, safe, comprehensive care, the following was completed at our patient's visit: 1. A medication reconciliation and review to ensure accurate knowledge of current/active medications, including asking our patients to inform us about any orom-tkv-nltuqzd medications or herbal remedies/nutritional supplements/alternative remedies. 2. A review to specifically ensure our patients have had annual screening for screening for depression, screening for tobacco use, and screening for unhealthy alcohol use. For concerning screenings had a discussion with the patient, provided patient education, and recommended follow-up with primary care provider when appropriate. If patient noted with a risk of falling, they received education on strength, gait, and balance training to prevent future risk of falling. Portions of this note may have been carried over from the previous visit and updated as appropriate. Please note this office utilizes paper charting in addition to the electronic medical record. A list of current medications, vitals, and PMH is available there as the clinical staff outside of myself do not have access to [employer] charting during the clinic day operations. As part of providing quality comprehensive care the current medications, vitals, and PMH were reviewed in the paper chart. Assessment and Plan Assessment and Plan (1) Generalized weakness: (2) Failed back syndrome: Plan status post scs implant with >80% improvement in pain. noting generalized weakness and imbalance/falls without injury. pt notes longest distance she can walk is from [employer] parking lot into main area. pt agreeable to trialing PT for strength and balance. continue to utilize cane. pt very pleased with pain relief and scs implant. f/u as scheduled for 14 week f/u, goals to improve stamina and balance.
== END 2025-05-12 08:44 | disposition home or self-care (01) ==
LOC: PM 08:43
PROVIDERS: PCP Family Medicine; Visit Provider Nurse Practitioner
DX: R53.1 Weakness (principal); M96.1 Postlaminectomy syndrome, not elsewhere classified
CPT/HCPCS: G0463

== ENCOUNTER 2025-05-16 11:04 | Outpatient (OUT) | payer MEDICARE, SELFPAY ==
--- OUTSIDE RECORDS SUMMARY | 2024-08-03 08:30 | XMS_ITS ---
Author Organization [facility] Address [address] [place] [address] [address] [place] [address] [place] [address] Care Team Providers Care Street Sweeper Name Role Phone Dmitriy Presley DO Primary Care Provider Unavailab Willy Davis Unavailable [phone] REASON FOR VISIT rfc Encounters Encounter Location Date Provider Diagnosis [facility] [address] [place] [address] [place] [address] 08/03/2024 Willy Schwarz Plan Of Treatment Next Appt Details Provider Name:Willy muir, 05/19/2025 03:00:00 PM, [address] [place] [address] Dr [address], [address], [place], [address], Progress Notes * Mary Carmen WASHBURNRoselineOB: 2 (84 yo F)Acc No.[id number]:08/03/2024 Patient:Kathy JOY :?JENNIFER BeachMDOB:1940???Age:84 Y???Sex: FemaleDate:08/03/2024Phone:Address:[address] [place] [address]Uuj: Dmitriy Presley DO Subjective: * Chief Complaints: * 1 . Rfc. * Medical History: Objective: * Vitals: Assessment: Plan: * Treatment: * Images: * Electronic signature of Willy Schwarz DPM on 05/16/2025 at 11:10 AM ESTSign off status: Pending * Provider: Wilfredo Schwarz DPM Date: 0 08/03/2024 Generated for Printing/Faxing/eTransmitting on:?05/16/2025 11:10 AM EST
--- OUTSIDE RECORDS SUMMARY | 2024-11-30 03:45 | XMS_ITS ---
Author Organization [facility] in [place] Address [address] [place] [address] Care Team Providers Care Senior Design Engineer Name Role Phone Dmitriy Presley DO Primary Care Provider Unavailab Carolin Mc Unavailable [phone] REASON FOR VISIT New PT Onc Encounters Encounter Location Date Provider Diagnosis [facility] [address] [place] [address] 11/30/2024 Carolin Silva Plan Of Treatment Next Appt Details Provider Name:CAROLIN SILVA , 06/28/2025 01:00:00 PM, [address] [place], [address], Progress Notes * MADDISONVikiOB: 2 (84 yo F)Acc No.[id number]:11/30/2024 UNLOCKED PROGRESS NOTE Progress Notes Patient: Kathy GUILLEN :?Carolin Silva M.D.:1940???Age:84 Y ???Sex:FemaleDate:11/30/2024Phone:[phone]:Christine Lewis Lauro IT-[id number]:Dmitriy Presley DO Subjective: * Chief Complaints: * 1 . New PT Onc. * Medical History: Objective: * Vitals: Assessment: Plan: * Treatment: * * Electronic signature of Carolin Silva MD, [id number] on 05/16/2025 at 11:10 AM ESTSign off status: PendingVisit Status:?PEN (Pending) * Provider: Rolo Silva M.D. Date: 0 11/30/2024 Generated for Printing/Faxing/eTransmitting on:?05/16/2025 11:10 AM EST
--- OUTSIDE RECORDS SUMMARY | 2025-02-22 08:15 | XMS_ITS ---
Author Organization The [facility] in [place] Address [address] [place] [address] Care Team Providers Care Busser Name Role Phone Dmitriy Presley DO Primary Care Provider Unavailab Carolin Mc Unavailable [phone] REASON FOR VISIT MD Encounters Encounter Location Date Provider Diagnosis The [facility] Oncology [address] [place] [address] 02/22/2025 Carolin Silva Plan Of Treatment Next Appt Details Provider Name:CAROLIN SILVA , 06/28/2025 01:00:00 PM, [address] [place], [address], Progress Notes * Viki APARICIOOB: 2 (84 yo F)Acc No.[id number]:02/22/2025 UNLOCKED PROGRESS NOTE Progress Notes Patient: Kathy GUILLEN :?Carolin Silva M.D.:1940???Age:84 Y ???Sex:FemaleDate:02/22/2025Phone:[phone]:Christine [place], [place]-[address]Eqz:Dmitriy Presley DO Subjective: * Chief Complaints: * 1 . MD. * Medical History: Objective: * Vitals: Assessment: Plan: * Treatment: * * Electronic signature of Carolin Silva MD, [id number] on 05/16/2025 at 11:09 AM ESTSign off status: PendingVisit Status:?CANC (Cancelled) * Provider: Rolo Silva M.D. Date: 0 02/22/2025 Generated for Printing/Faxing/eTransmitting on:?05/16/2025 11:09 AM EST
--- OUTSIDE RECORDS SUMMARY | 2025-03-01 06:45 | XMS_ITS ---
Author Organization The [facility] in [place] Address [address] [place] [address] Care Team Providers Care Dairy Frozen Manager Name Role Phone Dmitriy Presley DO Primary Care Provider Unavailab Carolin Mc Unavailable [phone] REASON FOR VISIT MD Encounters Encounter Location Date Provider Diagnosis The [facility] Oncology [address] [place] [address] 03/01/2025 Carolin Silva Plan Of Treatment Next Appt Details Provider Name:CAROLIN SILVA , 06/28/2025 01:00:00 PM, [address] [place], [address], Progress Notes * Viki APARICIOOB: 2 (84 yo F)Acc No.[id number]:03/01/2025 UNLOCKED PROGRESS NOTE Progress Notes Patient: Kathy GUILLEN :?Carolin Silva M.D.:1940???Age:84 Y ???Sex:FemaleDate:03/01/2025Phone:[phone]:Christine [place], [place]-[address]Ikq:Dmitriy Presley DO Subjective: * Chief Complaints: * 1 . MD. * Medical History: Objective: * Vitals: Assessment: Plan: * Treatment: * * Electronic signature of Carolin Silva MD, [id number] on 05/16/2025 at 11:10 AM ESTSign off status: PendingVisit Status:?PEN (Pending) * Provider: Rolo Silva M.D. Date: 0 03/01/2025 Generated for Printing/Faxing/eTransmitting on:?05/16/2025 11:10 AM EST
--- OUTSIDE RECORDS SUMMARY | 2025-05-10 10:15 | XMS_ITS ---
Author Organization [facility] Address [address] [place] [address] [place] [address] [place] [address] Care Team Providers Care Tobacco Warehouse Manager Name Role Phone Dmitriy Presley DO Primary Care Provider Unavailab Willy Davis Unavailable [phone] REASON FOR VISIT rfc Encounters Encounter Location Date Provider Diagnosis [facility] [address] [place] [address] [place] [address] 05/10/2025 Willy Schwarz Plan Of Treatment Next Appt Details Provider Name:Willy muir, 05/19/2025 03:00:00 PM, [address] [place] [address] Dr S[address]ano, [address], [place], [address], Progress Notes * Mary Carmen WASHBURNRoselineOB: 2 (84 yo F)Acc No.[id number]:05/10/2025 Patient:Kathy JOY :?JENNIFER BeachMDOB:1940???Age:84 Y???Sex: FemaleDate:05/10/2025Phone:Address:[address] [place] [address]Drh: Dmitriy Presley DO Subjective: * Chief Complaints: * 1 . Rfc. * Medical History: Objective: * Vitals: Assessment: Plan: * Treatment: * Images: * Electronic signature of Willy Schwarz DPM on 05/16/2025 at 11:10 AM ESTSign off status: Pending * Provider: Wilfredo Schwarz DPM Date: Generated for Printing/Faxing/eTransmitting on:?05/16/2025 11:10 AM EST
--- OUTSIDE RECORDS SUMMARY | 2025-05-12 10:15 | XMS_ITS ---
Author Organization [facility] Address [address] [place] [address] [place] [address] [place] [address] Care Team Providers Care Bearing Inspector Name Role Phone Dmitriy Presley DO Primary Care Provider Unavailab Willy Davis Unavailable [phone] REASON FOR VISIT rfc Encounters Encounter Location Date Provider Diagnosis [facility] [address] [place] [address] [place] [address] 05/12/2025 Willy Schwarz Plan Of Treatment Next Appt Details Provider Name:Willy muir, 05/19/2025 03:00:00 PM, [address] [place] [address] [address], [address], [place], [address], Progress Notes * Mary Carmen WASHBURNRoselineOB: 2 (84 yo F)Acc No.[id number]:05/12/2025 Patient:Kathy JOY :?JENNIFER BeachMDOB:1940???Age:84 Y???Sex: FemaleDate:05/12/2025Phone:Address:[address] [place] [address]Ehr: Dmitriy Presley DO Subjective: * Chief Complaints: * 1 . Rfc. * Medical History: Objective: * Vitals: Assessment: Plan: * Treatment: * Images: * Electronic signature of Willy Schwarz DPM on 05/16/2025 at 11:10 AM ESTSign off status: Pending * Provider: Wilfredo Schwarz DPM Date: Generated for Printing/Faxing/eTransmitting on:?05/16/2025 11:10 AM EST
--- OUTSIDE RECORDS SUMMARY | 2025-05-16 11:10 | XMS_ITS | Patient Health Record ---
Author Organization [facility] Address [facility] [place] [address] Care Team Providers Care Ssn/Ssbn Assistant Navigator Name Role Phone Dmitriy Presley DO Primary Care Provider Unavailab Willy Davis Unavailable [phone] Allergies Allergen (clinical drug ingredient) Drug/Non Drug Allergy documented on EMR Reaction Allergy Type Onset Date Status Medicinal cephalosporin and acting as antibacterial agent (FN) Cephalosporins Unknown Drug Allergy Active Reason For Referral No Information Medications Medication SIG (Take, Route, Frequency, Duration) Notes Start Date End Date Status metFORMIN HCl 1000 MG 1 tablet with a meal Orall y twice a day ActiveLipitor 20 MG1 tablet Orally Once a dayActiveAmbien 5 MG1 tablet at bedtime as needed Orally Once a dayActiveVenlafaxine HCl 75 MG1 tablet with food Orally Once a dayActiveAspirin 81 MG1 tablet Orally Once a dayActiveLisinopril 10 MG1 tablet Orally Once a dayActiveLyrica 225 MG1 capsule in the evening 1 to 3 hours before bedtime Orally twice a dayActiveLevothyroxine Sodium 100 MCG1 tablet in the morning on an empty stomach Orally Once a dayActivePropranolol HCl ER 60 MG1 capsule Orally Once a dayActiveTriamterene-HCTZ 37.5-25 MG1 tablet in the morning Orally Once a dayActiveEzetimibe 10 MG1 tablet Orally Once a day Active Social History Tobacco Use: Social History Observation Description Date Details (start date - stop date) Former Smoker NA - NA tobacco use Question Answer Notes Patient is a: former smoker quit 1998 Problems Problem Type SNOMED Code ICD Code Onset Dates Problem Status W/U Status Risk Notes Problem Chronic lymphoid adela kemia, disease (04033504) 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) ActiveconfirmedProblemPolyneuropathy due to type 2 diabetes mellitus (737817204) Type 2 diabetes mellitus with diabetic polyneuropathy (E11.42)Activeconfirmed ProblemType 2 diabetes mellitus with peripheral angiopathy (056922666)Type 2 diabetes mellitus with diabetic peripheral angiopathy without gangrene (E11.51) ActiveconfirmedProblemDilatation of aorta (85868830)Thoracic aortic ectasia (I77.810)ActiveconfirmedProblemRheumatoid arthritis (66769029)Rheumatoid arthritis, unspecified (M06.9)ActiveconfirmedProblemTinea unguium (799344651) Tinea unguium (B35.1)ActiveconfirmedProblemImmunodeficiency disorder (disorder) (611597722)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) ActiveconfirmedProblemChronic kidney disease stage 3B (disorder) (023953956) Chronic kidney disease, stage 3b (N18.32)Activeconfirmed Vital Signs Blood pressure diastolic 60 mm Hg 02/08/2025 Zmwecn15 in02/08/2025lood pressure hvqxzhti96 mm Hg02/08/20256422Tebqvc456 lbs 02/08/2025BMI34.26002/08/2025 Encounters Encounter Location Date Provider Diagnosis [facility] [address] [place] [address] 08/10/2024 Willy Schwarz Tinea unguium B35.1 ; Type 2 diabetes mellitus with diabetic peripheral angiopathy without gangrene E11.51 ; Type 2 diabetes mellitus with diabetic polyneuropathy E11.42 ; Chronic lymphocytic leukemia of B-cell type not having achieved remission C91.10 ; Rheumatoid arthritis, unspecified M06.9 and Immunodeficiency due to conditions classified elsewhere D84.[address] [facility] [address] [place] [address] 11/09/2024 Willy Schwarz Tinea unguium B35.1 ; Type 2 diabetes mellitus with diabetic peripheral angiopathy without gangrene E11.51 ; Type 2 diabetes mellitus with diabetic polyneuropathy E11.42 and penitentiary (current) use of oral hypoglycemic drugs Z79.84 [facility] [place] [address] [place] [address] 02/08/2025 Willy Schwarz Tinea unguium B35.1 ; Type 2 diabetes mellitus with diabetic peripheral angiopathy without gangrene E11.51 ; Type 2 diabetes mellitus with diabetic polyneuropathy E11.42 ; penitentiary (current) use of oral hypoglycemic drugs Z79.84 ; Chronic kidney disease, stage 3b N18.32 and Thoracic aortic ectasia I77.810 Assessments Encounter Date Diagnosis (ICD Code) Assessment Notes Treatment Notes Treatment Clinical Notes Section Notes 08/10/2024 Type 2 diabetes lamberto itus with diabetic peripheral angiopathy without gangrene (ICD-10 - E11.51) 08/10/2024Tinea unguium (ICD-10 - B35.1)I am treating this patient with a minmal risk of morbidity for nail fungus. I discussed with the patient the etiology and treatment for onychomycosis including but not limited to periodic debridement, oral therapy with Lamisil or Sporanox, topical therapy such as Penlac or Formula 3, removal of thenail, and laser therapy. Pt. agreed to periodic debridement today.11/09/2024Type 2 diabetes mellitus with diabetic peripheral angiopathy without gangrene (ICD-10 - E11.51)11/09/2024Tinea unguium (ICD-10 - B35.1)I am treating this patient with a minmal risk of morbidity for nail fungus. I discussed with the patient the etiology and treatment for onychomycosis including but not limited to periodic debridement, oral therapy with Lamisil or Sporanox, topical therapy such as Penlac or Formula 3, removal of thenail, and laser therapy. Pt. agreed to periodic debridement today.02/08/2025Type 2 diabetes mellitus with diabetic peripheral angiopathy without gangrene (ICD-10 - E11.51)02/08/2025Tinea unguium (ICD-10 - B35.1)I am treating this patient with a minmal risk of morbidity for nail fungus. I discussed with the patient the etiology and treatment for onychomycosis including but not limited to periodic debridement, oral therapy with Lamisil or Sporanox, topical therapy such as Penlac or Formula 3, removal of thenail, and laser therapy. Pt. agreed to periodic debridement today.11/09/2024Type 2 diabetes mellitus with diabetic polyneuropathy (ICD-10 - E11.42)02/08/2025Type 2 diabetes mellitus with diabetic polyneuropathy (ICD-10 - E11.42)08/10/2024Type 2 diabetes mellitus with diabetic polyneuropathy (ICD-10 - E11.42)08/10/2024hronic lymphocytic leukemia of B-cell type not having achieved remission (ICD-10 - C91.10)Stable from a podiatric perspective, stated to continue to follow up with the treating provider. Ifany acute issues arise patient advised to immediately call treating provider and patient confirms understanding of such.11/09/2024Long term (current) use of oral hypoglycemic drugs (ICD-10 - Z79.84)02/08/2025Long term (current) use of oral hypoglycemic drugs (ICD-10 - Z79.84)02/08/2025hronic kidney disease, stage 3b (ICD-10 - N18.32)Stable from a podiatric perspective, stated to continue to follow up with the treating provider. Ifany acute issues arise patient advised to immediately call treating provider and patient confirms understanding of such.08/10/2024Rheumatoid arthritis, unspecified (ICD-10 - M06.9)Stable from a podiatric perspective, stated to continue to follow up with the treating provider. Ifany acute issues arise patient advised to immediately call treating provider and patient confirms understanding of such.08/10/2024Immunodeficiency due to conditions classified elsewhere (ICD-10 - D84.81)Stable from a podiatric perspective, stated to continue to follow up with the treating provider. Ifany acute issues arise patient advised to immediately call treating provider and patient confirms understanding of such.02/08/2025Thoracic aortic ectasia (ICD-10 - I77.810)Stable from a podiatric perspective, stated to continue to follow up with the treating provider. Ifany acute issues arise patient advised to immediately call treating provider and patient confirms understanding of such. Plan Of Treatment Next Appt Details Provider Name:Willy muir, 05/19/2025 03:00:00 PM, [facility], [address], [place], [address], Insurance Providers Payer Name Payer Address Payer Phone Subscriber Number Group Number Insured Name Patient Relationship to Insured Coverage Start Date Coverage End Date Medicare Part B J-15 Part [facility] Claims [address] [place] [address] [id number], SandraSelf - patient is the insuredAARP Health Care Options [address] [place] [id number], SandraSelf - patient is the insured Medical (General) History Medical History History ICD Code Type II diabetes leukemiahypertensionosteoarthritisfibromyalgiaThyroid diseaseHypercholestrolemia Surgical History Surgery Date(Month/Year) hernia repair hysterectomyknee replacement x2back surgeryHospitalization History Reason Date(Month/Year) see surgical
--- OUTSIDE RECORDS SUMMARY | 2025-05-16 11:10 | XMS_ITS | Clinical Summary ---
Author Organization [facility] Address [address] [place] [address] Care Team Providers Care Freelance Court Reporter Name Role Phone Dmitriy Presley DO Primary Care Provider [phone] Dmitriy Presley DO Unavailable [phone] Dmitriy Presley DO Unavailable [phone] Allergies Active AllergyReactionsCriticalityNoted DateCommentsCephalosporinsHives,Swelling 02/20/20049344TrxftvswxvvFfokclg89/21/2022 Medications MedicationSigDispense QuantityRefillsLast FilledStart DateEnd DateStatus LASIX 20MG TABLET Indications:Other specified idiopathic peripheral neuropathyTake one(1) tablet daily.Active INDERAL LA 60MG CAPSULE SA Indications:Other specified idiopathic peripheral neuropathyTake one(1) tablet daily.Active ZETIA 10MG TABLET Indications:Other specified idiopathic peripheral neuropathyTake one(1) tablet daily.Active atorvastatin (LIPITOR) 20 mg tablet Indications:Other specified idiopathic peripheral neuropathyTake 20 mg by mouth. Active ZESTRIL 20MG TABLET Indications:Other specified idiopathic peripheral neuropathyTake 10 mg by mouth once daily. Active ASPIRIN 81MG TABLET Indications:Other specified idiopathic peripheral neuropathyTake one (1) tablet daily .Active CENTRUM SILVER TABLET Indications:Other specified idiopathic peripheral neuropathyTake one(1) tablet daily.Active LYRICA 225 mg ORAL capsule Take 225 mg by mouth twice daily.03/12/2021ctive OXYCODONE-ACETAMINOPHEN 5-325 mg ORAL tablet as needed.07/19/2011ctive METFORMIN 1,000 mg ORAL tablet Take 1,000 mg by mouth twice daily with meals. 03/12/2021ctive LEVOTHYROXINE 88 mcg ORAL tablet 06/10/2011ctive insulin glargine (LANTUS) 100 unit/mL injection Inject subcutaneously. 21 units Active venlafaxine ER (EFFEXOR XR) 75 mg 24 hr capsule Take 75 mg by mouth once daily.02/06/2022ctive hydrOXYchloroQUINE (PLAQUENIL) 200 mg tablet Indications:Primary osteoarthritis involving multiple jointsTake 2 tablets by mouth once daily. 180 tablet /ctive Active Problems ProblemNoted DateDiagnosed DateKnee pain07/24/2011 Family History Medical HistoryRelationCommentsHeart diseaseFatherHypertensionFatherMigraines Maternal GrandmotherCancerMotherHeart diseasePaternal GrandfatherHeart disease Paternal GrandmotherRelationStatusCommentsBrotherAliveFatherMaternal Grandmother MotherPaternal GrandfatherPaternal GrandmotherSisterDeceased Social History Tobacco UseTypesPacks/DayYears UsedDateSmoking Tobacco: FormerCigarettes1.520 07/14/1979 - 07/14/1999Smokeless Tobacco: Never Tobacco Cessation:Counseling Given: Not Answered Alcohol UseStandard Drinks/WeekCommentsNot Currently0 (1 standard drink = 0.6 oz pure alcohol)PHQ-2AnswerDate RecordedPHQ-2 whgwt738rea Deprivation IndexAnswerDate RecordedNational Score (1-100), lower number is lower risk61 02/07/2023State Score (1-10), lower number is lower wqev974ata from: https://www.neighborhoodatlas.medicine.[facility].edu/. Last address used for [address] [facility]02/07/2023CommentsNoSex and Gender InformationValueDate RecordedSex Assigned at IzppzBvvjlb97/13/2021 3:09 PM EDT Legal OneLlmucz06/02/2012 8:47 AM ESTGender IdentityNot on fileSexual OrientationNot on file Last Filed Vital Signs Vital SignReadingTime TakenCommentsBlood Frjqsrtz892/7106 10:27 AM EDT Fzaft8546 1:54 PM KCAQjlabwbadkh64.3 ??C (67 ??F)12/17/2024 10:27 AM EDT Respiratory Hzmo367907/26/2023 1:54 PM ESTOxygen Rasykuuixq11%05/26/2024 1:54 PM ESTInhaled Oxygen Concentration--Rnxchd077.6 kg (228 lb 6.3 oz)12/17/2024 10:27 AM RUBGatdjj121.7 cm (5' 7.99 )12/17/2024 10:27 AM EDTBody Mass Index34.74 12/17/2024 10:27 AM EDT Plan of Treatment DateTypeDepartmentCare Team (Latest Contact Info)Puyznbafrzy85/08/2026 11:00 AM EDTOffice Visit Rheumatology [address] [place], [place] [id number] [place] [address] [facility] [place], [place] [id number] Return in about 1 year (around 12/17/2025).Health MaintenanceDue DateLast Done SlebtlliNcV7E75/21/1947Diabetic Foot Exam2Dilated Retinal Exam 1952Urine Albumin:Creatinine Ratio2Anxiety Efgdgkuyp62/21/1960 Depression Lvqjwvpiy60/21/1960LDL Anryxqwcvrf03/21/1960Medicare Annual Wellness Visit06/13/2007Bone Density Afkbcdesd77/21/2007Shingrix Vaccine (2 of 2) dvance Directive Likueimypm91/01/2025Covid-19 Vaccine ( season)/12/2023, 06/23/2023, 04/18/2022, Additional history existsInfluenza Vaccine (#1)/12/2023, 04/15/2023, 04/25/2021, Additional history existsDTaP,Tdap,Td Vaccine (2 - Td or Tdap)01/14/2032 01/13/2022neumococcal Vaccine: 50+Nzcxyrmcb66/11/2023, 04/22/2022, 07/14/2019, Additional history existsRSV NjdusheIsssofqbb07/11/2023 Insurance Care Teams Team MemberRelationshipSpecialtyStart DateEnd Date Dmitriy Presley, [address] [place] [address] PCP - GeneralFamily Medicine08/01/11 Dmitriy Presley DO [address] [place] [address] ReferringFamily Medicine10/04/20 Dmitriy Presley DO [address] [place] [address] ReferringFamily Medicine01/09/21
--- OUTSIDE RECORDS SUMMARY | 2025-05-16 11:10 | XMS_ITS | Clinical Summary ---
Author Organization [facility] Address [address] [place] [address] Phone Care Team Providers Care Inventory Control Coordinator Name Role Phone Dmitriy Presley DO Primary Care Provider [phone] Social History Tobacco UseTypesPacks/DayYears UsedDateSmoking Tobacco: Never Assessed CommentsUnknownSex and Gender InformationValueDate RecordedSex Assigned at Not on fileLegal GbiYrtzrj83/25/2022 3:02 PM ESTGender IdentityNot on fileSexual OrientationNot on file Plan of Treatment Health MaintenanceDue DateLast DoneCommentsLipid Panel1942Yearly Adult Glydyvxz1942DTaP/Tdap/Td Vaccines (1 - Tdap)1964Zoster Vaccines (1 of [...] DateEnd Date Dmitriy Presley DO PCP - Pitknoz45/31/18
--- OUTSIDE RECORDS SUMMARY | 2025-05-16 11:10 | XMS_ITS | Clinical Summary ---
Author Organization [facility] Address [address] [place] [address] Care Team Providers Care Boring Machine Operator Name Role Phone Dmitriy Presley MD Primary Care Provider [phone] Maco Guillaume DO Unavailable [phone] Allergies Active AllergyReactionsCriticalityNoted UdybAakxboefAcftjxvnxtdYvifq14/06/2019 Other Reaction(s): Eye swelling NjodvprfifmtgoSdjdusb04/26/2023 Medications MedicationSigDispense QuantityRefillsLast FilledStart DateEnd DateStatus hydroxychloroquine [...] urethra 3x per week for UTI prevention, PulseOn #72, 178, cm, 08/16/24 9:10:00 EST, Height/Length Dosing, 103, kg, 08/16/24 9:10:00 EST, Weight Xwiegk345Active aspirin 81 MG EC tablet 1 (one) time each day at the same timeActive magnesium oxide (Mag-Ox) 400 (240 Mg) MG tablet Take 400 mg by mouth Daily5Active Active Problems ProblemNoted DateDiagnosed HotuBhcupzyb18/11/7137Rljhcoihonxx36/11/2024chilles tendinitis of left lower iyemguird35/28/2023one spur of posterior portion of /28/9124Rdafnnvyzfsun23/28/2023rtificial knee joint present 12/06/2022urning sensation of vulva12/06/2022Mixed afprcvdpwojz76/26/2023 Notalgia qovhrgcipuyr77/26/2023Other hammer toe(s) (acquired), left foot 12/06/2022Other hammer toe(s) (acquired), right foot12/06/2022Overactive bladder 12/06/2022Type 2 diabetes mellitus with peripheral nvgfasborf35/26/2023 Unsteadiness on feet12/06/2022Vaginal teigbov8512/06/2022Rheumatoid arthritis 06/04/2011enign essential jdkmsjglmwir92/01/2010Disorder associated with type 2 diabetes /01/2010 Encounters DateTypeDepartmentCare GowySrtfiuotlnr46/06/2025 2:30 PM EDTOffice Visit [facility] [address] [place] [address] Nay Louis PA Clements angioma (Primary Dx); Seborrheic keratosis; Actinic keratosis; Lentigines; Lipoma of right upper /06/2025amboo flowsheet [facility] [address] [place] [address] Nay Louis PA 04/18/2025Travelfrom Last 3 Months [...] InformationValueDate RecordedSex Assigned at Not on fileLegal UvqAwsxdf04/15/2023 7:08 PM EDTGender IdentityNot on fileSexual OrientationNot on file Last Filed Vital Signs Vital SignReadingTime TakenCommentsBlood Owonqdqn427/7607 1:23 PM EDT Tgijm6559 2:16 PM ESTTemperature--Respiratory Rate--Oxygen Lokoxayvct82% 06/17/2024 1:58 PM ESTInhaled Oxygen Concentration--Jpwxnl237 kg (225 lb) 01/12/2025 1:23 PM EWDAgqfqz380.3 cm (5' 9 )01/12/2025 1:23 PM EDTBody Mass Index33.23001/12/2025 1:23 PM EDT Plan of Treatment Health MaintenanceDue DateLast DoneCommentsDTaP/Tdap/Td Vaccines (1 - Tdap) 1949COVID-19 Vaccine (6 - season)509/12/2023, 06/23/2023, 06/01/2021, Additional history existsInfluenza Vaccine (#1)509/12/2023, 04/15/2023, 04/25/2021, Additional history existsPneumococcal Vaccine: 65+ Years Chtjsnbhk84/11/2023, 04/22/2022, 07/14/2019, Additional history existsHIB VaccinesAged OutNo [...] this topic Procedures Procedure NamePriorityDate/TimeAssociated DiagnosisCommentsCRYOTHERAPY SKIN KPKZOGGetmbrf14/06/2025 2:46 PM EDT Actinic keratosis from Last 3 Months Results * Cryotherapy, skin lesion (04/18/2025 2:46 PM EDT) Narrative Authorizing ProviderResult TypeResult StatusRye [facility] PROCEDURE ORDERABLESFinal Result from Last 3 Months Insurance Care Teams Team MemberRelationshipSpecialtyStart DateEnd Date Dmitriy Presley MD [address] [place] [address] [place] [address] PCP - GeneralFamily Medicine12/10/22 Maco Guillaume DO [address] [place] [address] Referring PhysicianNeurolog08/09/24
--- OUTSIDE RECORDS SUMMARY | 2025-05-16 11:10 | XMS_ITS | Patient Health Record ---
Author Organization [facility] [place] Address [address] [place] [address] Care Team Providers Care Counter Tender Name Role Phone Dmitriy Presley DO Primary Care Provider Unavailab Carolin Mc Unavailable [phone] Reason For Referral No Information Encounters Encounter Location Date Provider Diagnosis [facility] [address] [place] [address] 03/01/2025 Carolinroberto Silva [facility] [address] [place] [address]/20/2025 Carolin Silva Plan Of Treatment Next Appt Details Provider Name:CAROLIN SILVA , 06/28/2025 01:00:00 PM, [address] [place], [address], Insurance Providers Payer Name Payer Address Payer Phone Subscriber Number Group Number Insured Name Patient Relationship to Insured Coverage Start Date Coverage End Date [place]IC[place] [address] [place] [address] [id number] Adriel Washburn - patient is the [id number] 2007[facility] [address] [place] [id number], SandraSelf - patient is the [id number] 2007
[2025-05-16 12:30] LABS: Alanine Aminotransferase 36 U/L (14-59); Albumin Globulin Ratio 0.9; Albumin Level 3.0 g/dL (3.4-5.0); Alkaline Phosphatase 92 U/L (46-116); Anion Gap 14.8; Aspartate Amino Transferase 24 U/L (15-37); Blood Urea Nitrogen 21.0 mg/dL (7.0-18.0); Calcium 8.9 mg/dL (8.5-10.1); Carbon Dioxide 26.7 mmol/L (21.0-32.0); Chloride 108 mmol/L (98-107); Cholesterol 143 mg/dL (<=200); Estimated GFR (African America 54 (>=60 mL/min/1.73m^2); Estimated GFR (Non-African Ame 44 (>=60 mL/min/1.73m^2); Free T3 2.90 pg/mL (2.18-3.98); Globulin 3.4 g/dL; Glucose 114 mg/dL (74-106); HDL Cholesterol 53 mg/dL (40-60); Potassium 4.5 mmol/L (3.5-5.1); Sodium 145 mmol/L (136-145); Thyroid Stimulating Hormone 2.164 uIU/mL (0.358-3.740); Total Protein 6.4 g/dL (6.4-8.2); Triglycerides 158 mg/dL (<=150); VLDL CHOLESTEROL 31.6 mg/dL
== END 2025-05-16 11:05 | disposition home or self-care (01) ==
LOC: LAB 11:06
PROVIDERS: PCP Family Medicine; Visit Provider Family Medicine
DX: E78.5 Hyperlipidemia, unspecified (principal); E03.9 Hypothyroidism, unspecified; Z79.899 Other long term (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 therapy; R73.9 Hyperglycemia, unspecified
CPT/HCPCS: 36415; 80053; 80061; 83036; 84439; 84443; 84481

== ENCOUNTER 2025-05-20 07:44 | Outpatient (RCR) | payer MEDICARE, SELFPAY | END 2025-05-21 10:43 | disposition home or self-care (01) | LOC: PT 07:44 | PROVIDERS: PCP Family Medicine; Visit Provider Anesthesiology | DX: R53.1 Weakness (principal) | CPT/HCPCS: 97110; 97161 ==

== ENCOUNTER 2025-05-26 13:55 | Outpatient (OUT) | payer MEDICARE, SELFPAY ==
--- OUTSIDE RECORDS SUMMARY | 2024-08-03 08:30 | XMS_ITS ---
Author Organization [facility] Address [address] [place] [address] [place] [address] Care Team Providers Care High [employer] Foreign Language Tutor Name Role Phone Dmitriy Presley DO Primary Care Provider Unavailab Willy Davis Unavailable [phone] REASON FOR VISIT rfc Encounters Encounter Location Date Provider Diagnosis [facility] [address] [place] [address] [place] [address] 08/03/2024 Willy Schwarz Plan Of Treatment No Information Progress Notes * Viki WASHBURNOB: 2 (84 yo F)Acc No.[id number]:08/03/2024 Patient:?Maddison Kathy :?JENNIFER BeachMDOB:1940???Age:84 Y???Sex: FemaleDate:08/03/2024Phone:Address:[address] [place], [place] [id number]: Dmitriy Presley DO Subjective: * Chief Complaints: * R fc * Electronic signature of Willy Schwarz DPM on 05/26/2025 at 01:59 PM ESTSign off status: Pending * Provider: Wilfredo Schwarz DPM Date: 0 08/03/2024 Generated for Printing/Faxing/eTransmitting on:?05/26/2025 01:59 PM EST
--- OUTSIDE RECORDS SUMMARY | 2024-11-30 03:45 | XMS_ITS ---
Author Organization [facility] [place] Address [address] [place] [address] Care Team Providers Care City Designer Name Role Phone Dmitriy Presley DO Primary Care Provider Unavailab Carolin Mc Unavailable [phone] REASON FOR VISIT New PT Onc Encounters Encounter Location Date Provider Diagnosis [facility] [address] [place] [address] 11/30/2024 Carolin Silva Plan Of Treatment Next Appt Details Provider Name:CAROLIN SILVA , 06/28/2025 01:00:00 PM, [address] [place], [address], Progress Notes * MADDISONVikiOB: 2 (84 yo F)Acc No.[id number]:11/30/2024 UNLOCKED PROGRESS NOTE Progress Notes Patient: Kathy GUILLEN :?Carolin Silva M.D.:1940???Age:84 Y ???Sex:FemaleDate:11/30/2024Phone:[phone]:Christine Lewis Lauro [id number]:Dmitriy Presley DO Subjective: * Chief Complaints: * 1 . New PT Onc. * Medical History: Objective: * Vitals: Assessment: Plan: * Treatment: * * Electronic signature of Carolin Silva MD, [id number] on 05/26/2025 at 01:59 PM ESTSign off status: PendingVisit Status:?PEN (Pending) * Provider: Rolo Silva M.D. Date: 0 11/30/2024 Generated for Printing/Faxing/eTransmitting on:?05/26/2025 01:59 PM EST
--- OUTSIDE RECORDS SUMMARY | 2025-02-22 08:15 | XMS_ITS ---
Author Organization The [facility] in [place] Address [address] [place] [address] Care Team Providers Care Sole Assessor Name Role Phone Dmitriy Presley DO Primary Care Provider Unavailab Carolin Mc Unavailable [phone] REASON FOR VISIT MD Encounters Encounter Location Date Provider Diagnosis The [facility] Oncology [address] [place] [address] 02/22/2025 Carolin Silva Plan Of Treatment Next Appt Details Provider Name:CAROLIN SILVA , 06/28/2025 01:00:00 PM, [address] [place], [address], Progress Notes * Viki APARICIOOB: 2 (84 yo F)Acc No.[id number]:02/22/2025 UNLOCKED PROGRESS NOTE Progress Notes Patient: Kathy GUILLEN :?Carolin Silva M.D.:1940???Age:84 Y ???Sex:FemaleDate:02/22/2025Phone:[phone]:Christine [place], [place]Jwt:Dmitriy Presley DO Subjective: * Chief Complaints: * 1 . MD. * Medical History: Objective: * Vitals: Assessment: Plan: * Treatment: * * Electronic signature of Carolin Silva MD, [id number] on 05/26/2025 at 01:59 PM ESTSign off status: PendingVisit Status:?CANC (Cancelled) * Provider: Rolo Silva M.D. Date: 0 02/22/2025 Generated for Printing/Faxing/eTransmitting on:?05/26/2025 01:59 PM EST
--- OUTSIDE RECORDS SUMMARY | 2025-03-01 06:45 | XMS_ITS ---
Author Organization The [facility] in [place] Address [address] [place] [address] Care Team Providers Care Rural Service Engineer Name Role Phone Dmitriy Presley DO Primary Care Provider Unavailab Carolin Mc Unavailable [phone] REASON FOR VISIT MD Encounters Encounter Location Date Provider Diagnosis The [facility] Oncology [address] [place] [address] 03/01/2025 Carolin Silva Plan Of Treatment Next Appt Details Provider Name:CAROLIN SILVA , 06/28/2025 01:00:00 PM, [address] [place], [address], Progress Notes * Viki APARICIOOB: 2 (84 yo F)Acc No.[id number]:03/01/2025 UNLOCKED PROGRESS NOTE Progress Notes Patient: Kathy GUILLEN :?Carolin Silva M.D.:1940???Age:84 Y ???Sex:FemaleDate:03/01/2025Phone:[phone]:Christine [place] LauroWEST [place], [place]-[address]Rmf:Dmitriy Presley DO Subjective: * Chief Complaints: * 1 . MD. * Medical History: Objective: * Vitals: Assessment: Plan: * Treatment: * * Electronic signature of Carolin Silva MD, [id number] on 05/26/2025 at 02:00 PM ESTSign off status: PendingVisit Status:?PEN (Pending) * Provider: oRlo Silva M.D. Date: 0 03/01/2025 Generated for Printing/Faxing/eTransmitting on:?05/26/2025 02:00 PM EST
--- OUTSIDE RECORDS SUMMARY | 2025-05-10 10:15 | XMS_ITS ---
Author Organization [facility] Address [address] [place] [address] [place] [address] Care Team Providers Care Director Of Plant Operations Name Role Phone Dmitriy Presley DO Primary Care Provider Unavailab Willy Davis Unavailable [phone] REASON FOR VISIT rfc Encounters Encounter Location Date Provider Diagnosis [facility] [address] Angela [place] [address] [place] [address] 05/10/2025 Willy Schwarz Plan Of Treatment No Information Progress Notes * Viki WASHBURNOB: 2 (84 yo F)Acc No.[id number]:05/10/2025 Patient:?Maddison Kathy :?JENNIFER BeachMDOB:1940???Age:84 Y???Sex: FemaleDate:05/10/2025Phone:Address:[address] [place], [place] [id number]: Dmitriy Presley DO Subjective: * Chief Complaints: * R fc * Electronic signature of Willy Schwarz DPM on 05/26/2025 at 01:59 PM ESTSign off status: Pending * Provider: Wilfredo Schwarz DPM Date: 1 Generated for Printing/Faxing/eTransmitting on:?05/26/2025 01:59 PM EST
--- OUTSIDE RECORDS SUMMARY | 2025-05-19 10:00 | XMS_ITS ---
Author Organization 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 Yarns Name Role Phone Dmitriy Presley DO Primary Care Provider Unavailab Willy Davis Unavailable [phone] Allergies Allergen (clinical drug ingredient) Drug/Non Drug Allergy documented on EMR Reaction Allergy Type Onset Date Status Medicinal cephalosporin and acting as antibacterial agent (FN) Cephalosporins Unknown Drug Allergy Active REASON FOR VISIT [facility] Medications Medication SIG (Take, Route, Frequency, Duration) Notes Start Date End Date Status Venlafaxine HCl 75 MG Tablet 1 tablet with food Orally Once a day ActiveLyrica 225 MG Capsule1 capsule in the evening 1 to 3 hours before bedtime Orally twice a dayActiveLipitor 20 MG Tablet1 tablet Orally Once a dayActive Aspirin 81 MG Tablet Delayed Release1 tablet Orally Once a dayActiveAmbien 5 MG Tablet1 tablet at bedtime as needed Orally Once a dayActiveLevothyroxine Sodium 100 MCG Tablet1 tablet in the morning on an empty stomach Orally Once a day ActiveEzetimibe 10 MG Tablet1 tablet Orally Once a dayActiveLisinopril 10 MG Tablet1 tablet Orally Once a dayActivePropranolol HCl ER 60 MG Capsule Extended Release 24 Hour1 capsule Orally Once a dayActiveTriamterene-HCTZ 37.5-25 MG Tablet1 tablet in the morning Orally Once a dayActivemetFORMIN HCl 1000 MG Tablet1 tablet with a meal Orally twice a dayActive Social History Tobacco Use: Social History Observation Description Date Details (start date - stop date) Former Smoker NA - NA Social History Social HistorySocial InfoQuestionAnswerNotesalcoholDo you use alcohol?Drinks alcohol sociallymarital statusmarital statuswidowedtobacco usePatient is a: former smokerquit 1998Additional DetailsCategorySocial InfoOptionsDetailsSocial Historyrecreational drug useno Vital Signs Blood pressure systolic 130 mm Hg 05/19/20 25 Blood pressure diastolic 78 mm Hg 025 Height 69 in 05/19/2025 Encounters Encounter Location Date Provider Diagnosis [facility] [address] [place] [address] 05/19/2025 Willy Schwarz Tinea unguium B35.1 ; Type 2 diabetes mellitus with diabetic peripheral angiopathy without gangrene E11.51 ; Type 2 diabetes mellitus with diabetic polyneuropathy E11.42 and alf (current) use of oral hypoglycemic drugs Z79.84 Assessments Encounter Date Diagnosis (ICD Code) Assessment Notes Treatment Notes Treatment Clinical Notes Section Notes 05/19/2025 Tinea unguium (ICD-10 - B35.1) I am treating this patient with a minmal risk of morbidity for nail fungus. I discussed with the patient the etiology and treatment for onychomycosis including but not limited to periodic debridement, oral therapy with Lamisil or Sporanox, topical therapy such as Penlac or Formula 3, removal of thenail, and laser therapy. Pt. agreed to periodic debridement today.05/19/2025Type 2 diabetes mellitus with diabetic peripheral angiopathy without gangrene (ICD-10 - E11.51)05/19/2025Type 2 diabetes mellitus with diabetic polyneuropathy (ICD-10 - E11.42)05/19/2025Long term (current) use of oral hypoglycemic drugs (ICD-10 - Z79.84) Plan Of Treatment Treatment Notes Assessment Notes [...] therapy. Pt. agreed to periodic debridement today. Next Appt Details Follow Up: 3 Months, Reason: rfc Procedure Notes * CategorySub-CategoryDetailNotesDebridement of ToenailsManuallydebrided nails 1,2,3,4 and 5 in thickness and in length, bilateralMechanicallydebrided nails 1,2,3,4, and 5 in thickness and in length with a dremel History and Physical Notes * HPI (History of Present Illness) CategorySub-CategoryDetailNotesCategory NotesBilateral FeetTristin is a 84 y/o female who presents for diabetic foot care. She last saw her PCP, Dr. Presley who is treating her diabetes on 08/12/2024. She does experienced numbness and tingling in her feet. Examination CategorySub-CategoryDetailNotesCategory NotesVascularDorsalis Pedis Pulse2/4, palpable, bilateralPosterior Tibial Pulse0/4, palpable, bilateralCapillary Refill< 3 seconds, digits 1-5 bilateralTemperature Gradientwarm to cool from tibial tuberosity to dorsum of foot, bilateral feetEdemapitting, (+)1Hair growth none observed, bilateral feetQ mgxhnsjoN0WcybeukbtcZshbvh Power5/5, bilateral, dorsiflexors, plantarflexors, everters, invertersSemmes-Violette 5.07 Monofilamentunable to feel plantar heels, sub metatarsal 1,3,5, plantar hallux, plantar 5th digit, dorsum of foot, bilateralDermatologicSkinthin, shiny , and atrophic, bilateralNail Pathologydigital nails 1-5, subungual debris, painful upon palpation, yellow, crumbly, thickened, elongatedOrthopedicAnkle Joint ROM normal with no decrease in range of motion or crepitus noted, bilateralSTJ ROMno evidence of pain to ROM or crepitus noted, bilateralLisfrancs Joint ROMnormal, bilateralFirst MPJ ROMnormal ROM with no pain or crepitus noted, bilateral Progress Notes * MARKUS VikiOB: 2 (84 yo F)Acc No.[id number]:05/19/2025 Patient:?Kathy WASHBURN :?Willy SchwarzJENIFEROB:1940???Age:84 Y???Sex: FemaleDate:05/19/2025Phone:Address:[address] [place], [place] [address]Pcp: Dmitriy Presley, DO Subjective: * Chief Complaints: * R fc * HPI: ???Bilateral Feet:?This is a 84 y/o female who presents? for diabetic foot care.? She last saw her PCP, Dr. Presley who is treating her diabetes on 08/12/2024.? She does experienced numbness and tingling in her feet. * Medical History: Type II diabetes Leukemia Hypertension Osteoarthritis Fibromyalgia Thyroid disease Hypercholestrolemia * Surgical History: hernia repair ? hysterectomy ? knee replacement x2 ? back surgery ? * Family History: father- heart disease, alzheimer's [...] reconciled with the patient * Allergies: C ephalosporinsno[Allergies Verified] Objective: * Vitals: H t: 69 in, Blood pressure (BP): 130/78 mm Hg. * Examination: ???Vascular: ?Dorsalis Pedis Pulse?2/4, palpable, bilateral.?Posterior Tibial Pulse?0/4, palpable, bilateral.?Capillary Refill?< 3 seconds, digits 1-5 bilateral.?Temperature Gradient?warm to cool from tibial tuberosity to dorsum of foot, bilateral feet.?Edema?pitting, (+)1.?Hair growth?none observed, bilateral feet. Q findings?Q8.?Dermatologic: ?Skin?thin, shiny , and atrophic, bilateral.?Nail Pathology?digital nails 1-5, subungual debris, painful upon palpation, yellow, crumbly, thickened, e longated.?Neurologic: ?Muscle Power?5/5, bilateral, dorsiflexors, plantarflexors,everters, inverters.?[place]-Violette 5.07 Monofilament?unable to feel plantar heels, sub metatarsal 1,3,5, plantar hallux, plantar 5th digit, dorsum of foot, bilateral.?Orthopedic: ?Ankle Joint ROM?normal with no decrease in range of motionor crepitus noted, bilateral.?STJ ROM?no evidence of pain to ROM or crepitus noted, bilate ral.?Lisfrancs Joint ROM?normal, bilateral.?First MPJ ROM?normal ROM with no di n or crepitus noted, bilateral.? 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 Plan: * Treatment: Notes: I am treating this patient with a minmal risk of morbidity for nail fungus. I discussed withthe patient the etiology and treatment for onychomycosis including but not limited to periodic debridement, oral therapy with Lamisil or Sporanox, topical therapy such as Penlac or Formula 3, removalof the nail, and laser therapy. Pt. agreed to periodic debridement today.?? * Procedures: ???Debridement of Toenails:?Manually?debrided nails 1,2,3,4 and 5 in thickness and in length, bilateral.?Mechanically?debrided nails 1,2,3,4, and 5 in thickness and in length with a dremel.? * Procedure Codes: 1 1721 DEBRIDE NAIL, 6 OR MORE, Modifiers: Q8 * Follow Up: 3 Months (Reason: rfc) * Images: * ign off status: Completed true * Provider: Wilfredo Schwarz DPM Date: 07/19/2024 Generated for Printing/Faxing/eTransmitting on:?05/26/2025 01:59 PM EST
--- OUTSIDE RECORDS SUMMARY | 2025-05-19 19:57 | XMS_ITS | Continuity of Care Document ---
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 Name Role Phone Sakina Dmitriy WISDOM Primary Care Provider Som Azul MD Attending Provider [phone] Mckenzie Christopher APRN Attending Provider Dmitriy Presley DO Attending Provider Care Teams Patient Care Team Team Status: Active Member Role/Relationship Status Dates Dmitriy Presley DO Primary Care Provider Active Visit Care Team Team Status: Active Member Role/Relationship Status Dates Dmitriy Presley DO Primary Care Provider Active S tart: March 16, 2025 Som Azul , MDAttending ProviderActiveStart: March 16, 2025 Visit Care Team Team Status: Inactive Member Role/Relationship Status Dates Dmitriy Presley DO Primary Care Provider Active S tart: April 26, 2025 End: April 26Héctor Ortiz ProviderActiveStart: April 26, 2025 End: April 26, 2025 Visit Care Team Team Status: Inactive Member Role/Relationship Status Dates Dmitriy Presley DO Primary Care Provider Active S tart: April 26, 2025 End: April 26Héctor Ortiz ProviderActiveStart: April 26, 2025 End: April 26, 2025 Visit Care Team Team Status: Inactive Member Role/Relationship Status Dates Dmitriy Presley DO Primary Care Provider Active S tart: April 28, 2025 End: April 28, 2025DaangelaAlix Murguia ProviderActiveStart: April 28, 2025 End: April 28, 2025 Visit Care Team Team Status: Active Member Role/Relationship Status Dates Dmitriy Presley Primary Care Provider Active S tart: May 16, 2025 Alix Roman ProviderActiveStart: May 16, 2025 Visit Care Team Team Status: Inactive Member Role/Relationship Status Dates Dmitriy Sakina Primary Care Provider Active S tart: May 18, 2025 End: May 18, 2025DaangelaAlix Murguia ProviderActiveStart: May 18, 2025 End: May 18, 2025 Visit Care Team Team Status: Inactive Member Role/Relationship Status Dates Dmitriy Presley Primary Care Provider Active S tart: May 19, 2025 End: May 19, 2025DaangelaAlix Mruguia ProviderActiveStart: May 19, 2025 End: May 19, 2025 Chief Complaint and Reason for Visit Chief Complaint Admit Date cough, congestion April 26, 2025 1 :42pm R06.02 April 26, 2025 2 :03pm UC f/u bronchitis April 28, 2025 1 1:49am review labs/med refill May 18 2:39pm Z12.31 May 19, 2025 1 1:13am Reason for Visit Admit Date Bronchiolitis April 26, 2025 1 :42pm Fatigue April 28, 2025 1 1:49am Bronchiolitis April 28, 2025 1 1:49am Diabetes May 18, 2025 2 :39pm Diarrhea May 18, 2025 2 :39pm Impaired mobility and activities of estelita y living May 18, 2025 2:39pm Other abnormal blood chemistry May 18, 2025 2:39pm Other spondylosis with radiculopathy, tania mbar region May 18, 2025 2:39pm HLD (hyperlipidemia) May 18, 2025 2:39pm Hypothyroidism May 18, 2025 2 :39pm Allergies, Adverse Reactions, Alerts Allergen Type Severity Reaction Last Updated Verified Status Comments bacitracin Allergy Unknown Unknown Reaction May 18, 2025 8:58am Yes Active cefpodoximeAllergyUnknownUnknown ReactionNov2024 8:58amYesActive CephalosporinsAllergyUnknownSwelling of Lip/Tongue/ThroatNovember 2024 8:58amYesActiveEyes swelled alsoneomycinAllergyUnknownUnknown ReactionNovember 2024 8:58amYesActivepolymyxin BAllergyUnknownUnknown ReactionNovember 2024 8:58amYesActive Social History Smoking Status Status Start Date [...] history of mental disorderUnknownsisterDeceasedUnknown Problems Active Problems Problem Diagnosis/Recorded Date Onset Date Status C omments Chronic kidney disease, stage 3b November 10, 2024 2:52pm U nknown Active Acute hypotensionJuly 2021 5:15pmUnknownActiveHematoma of right lower leg January 21, 2022 11:38amUnknownActiveInsomniaSeptember 2016 2:16pmUnknown ActiveType 2 diabetes mellitus with diabetic chronic kidney diseaseJune 2024 1:46pmUnknownActiveOther shelter (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 therapyApril 2023 2:07pmUnknownActiveLumbar and sacral spondylarthritisSept2016 5:45am UnknownActiveLumbar and sacral spondylarthritisSeptember 2016 5:45am UnknownActiveRight wrist fractureJuly 2021 6:37pmUnknownActiveHistory of lumbosacral spine surgerySeptember 2016 11:40amUnknownActiveImpaired mobility and activities of daily livingJuly 2021 8:33amUnknownActiveLumbar back painSeptember 2016 5:45amUnknownActiveOther spondylosis with radiculopathy, lumbar regionJuly 2023 1:27pmUnknownActiveDiabetic neuropathyJuly 2021 4:26pmUnknownActiveOnychomycosisAugust 2023 2:06pmUnknownActiveFatigueOctober 2024 11:03amUnknownActiveDiabetesJuly 2021 2:21pmUnknownActiveDiabetesSeptember 2016 2:15pmUnknownActive Overactive bladderAugust 2024 2:08pmUnknownActivePremature beatApril 2024 3:29pmUnknownActiveFoot deformityJuly 2023 1:27pmUnknownActiveChronic lymphocytic leukemiaApril 2023 2:08pmUnknownActiveAnemiaSeptember 2016 2:26pmUnknownActiveChronic insomniaOctober 2023 1:34pmUnknownActive Hypertensive chronic 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 4 chronic kidney disease, or unspecified chronic kidney diseaseJune 2024 1:46pmUnknownActive DepressionSeptember 2016 2:17pmUnknownActiveDiarrheaNovember 2024 3:07pmUnknownActiveHLD (hyperlipidemia)March 27, 2017 2:17pmUnknownActive HypothyroidismSeptember 2016 11:45amUnknownActiveDiabetes type 2, uncontrolledApril 2023 2:06pmUnknownActiveOther abnormal blood chemistry October 21, 2023 2:07pmUnknownActivePeripheral neuropathyAugust 2023 1:56pm UnknownActiveNeuropathyApril 2023 2:07pmUnknownActiveRheumatismApril 2023 2:07pmUnknownActivePostoperative painSeptember 2016 11:45amUnknown ActiveLumbar degenerative disc diseaseSeptember 2016 5:45amUnknownActive Lumbar and sacral osteoarthritisSeptember 2016 5:45amUnknownActiveLumbar adjacent segment disease with spondylolisthesisSeptember 2016 5:45am UnknownActiveMemory changesOctober 2023 1:54pmUnknownActiveBMI 32.0-32.9,adultOctober 2023 1:37pmUnknownActiveIrritable bowel syndrome with diarrheaJuly 2023 1:27pmUnknownActiveSepsisJuly 2021 5:15pm UnknownActiveHypnotic-dependent sleep disorderOctober 2023 1:34pmUnknown ActiveChronic back painJuly 2021 8:44amUnknownActiveLumbar disc disease with radiculopathySeptember 2016 5:45amUnknownActiveKnee pain, leftOctober 2023 2:01pmUnknownActiveAcute UTIJuly 2021 5:15pmUnknownActive Peripheral edemaApril 2023 2:07pmUnknownActiveMinor closed head injuryJuly 2021 5:15pmUnknownActiveHip pain, leftOctober 2023 2:02pmUnknown ActiveLumbar arthropathySeptember 2016 5:45amUnknownActiveLumbar disc disorderSeptember 2016 5:45amUnknownActiveAbrasionJuly 2021 5:15pm UnknownActiveRight otitis mediaJuly 2023 1:58pmUnknownActiveCystitisApril 2023 2:08pmUnknownActiveHypertensionSeptember 2016 11:44amUnknown ActiveHydradenitisAugust 2024 2:17pmUnknownActiveright axillaConstipation March 28, 2017 7:52amUnknownActiveVitamin D deficiencySeptember 2016 2:16pmUnknownActiveFallJuly 2021 3:38pmUnknownActiveContusion of leg, right January 13, 2022 5:15pmUnknownActiveHyperkalemiaApril 2024 2:44pmUnknown Active Medications Medication Status Dose Units Route Directions Qty Days Refills S tart Date Stop Date End Date Reason(s) Instructions Adherence Lisinopril 10 mg tablet Discontinued 0 .ROUTE.WKQHMET182Wsnzi 2023 1:08pmApril 2023 2:51pmTAKE 1 TABLET BY MOUTH DAILYAtorvastatin 20 mg tabletDiscontinued0.ROUTE.PWCLHRH498Rygkc 2023 1:08pmApril 2023 2:22pmTAKE 1 TABLET BY MOUTH DAILYTriamterene- Hydrochlorothiazid 37.5-25 mg tabletDiscontinued0.ROUTE.TIKFXUN495Xwffn 2023 1:09pmOctober 2023 3:16pmTAKE 1/2 (ONE-HALF) OF A TABLET BY MOUTH DAILYCiprofloxacin Hcl 500 mg mwbeyyIndeszdjjfjk113QGCJJjznn gammh08562Qlsqz 2023 11:00pmApril 2023 8:49amNitrofurantoin Monohyd/M-Cryst (Macrobid) 100 mg dvnzindTupedkuxgbtm353WJWWTljpw vlcmg796Viilj 2023 11:00pmApril 2023 3:08pmmust administer with a meal/foodInsulin Glargine (Lantus Solostar U- 100 Insulin) 100 unit/mL (3 mL) insulin penDiscontinued0.ROUTE.HWMTDFP773Dhgms 2023 1:21pmApril 2023 2:51pmINJECT 46 UNITS SUBCUTANEOUSLY AT BEDTIME Nitrofurantoin Monohyd/M-Cryst (Macrobid) 100 mg hhssssqRqxsydogmzht062RXULYjuww yosmq928Nmfov 2023 3:08pmJuly 2023 1:24pmmust administer with a meal/foodCiprofloxacin Hcl (Cipro) 250 mg actjelUfttythpooam606DUTRGiebe daily10 50July 2023 11:00pmAugust 2023 1:47pmInsulin Glargine (Lantus Solostar U-100 Insulin) 100 unit/mL (3 mL) insulin nplYqlxgbhzffjj52JKAMWCPDND Every eveningJuly 2023 2:07pmJuly 2024 3:37pmCiprofloxacin Hcl (Cipro) 500 mg eeezkqVnlzagjtjcrc613BXXIQemxu tdsqc2527Nwycayljx 3rd, 2024 11:00pmSeptember 2023 8:57amPregabalin (Lyrica) 225 mg capsuleDiscontinued 225MGPOTwice dudeb911508Pmxfdnxmn 17th, 2024 9:01amMarch 2024 3:44pm Chronic back pain Dorsalgia, unspecified Other chronic painEzetimibe 10 mg tabletDiscontinued0.ROUTE.RUYRYWK761Qzzowxajh 17th, 2024 9:02amSeptember 2024 6:40amTAKE 1 TABLET BY MOUTH ONCE DAILY Levothyroxine 100 mcg mjrtcdRkwkdmuugtwi360PXMWZXmgheXtbldld 7th, 2024 2:57pm April 19, 2024 3:18pmTAKE 1 TABLET BY MOUTH EVERY MORNING ON AN EMPTY STOMACH DO NOT EAT OR DRINK FOR 30-45 MIN AFTER TAKINGPropranolol 60 mg capsule,extended release 24 tbWxwhpgzrkoby80RVGLPdiwv366Iphlcyn 7th, 2024 3:14pmSept2024 6:40amFreeTextSig: TAKE 1 CAPSULE BY MOUTH DAILY; Note: Source Status: Taking; Provider: Sakina Izaguirre ( )Metformin 1,000 mg tablet Cvjrrvispwvu4696SXEQVkvro pwmwc0706Vueznjp2023 3:15pmJuly 2024 1:23pmLisinopril 10 mg ksvyjpSzipytjpcics89UHEXIzhkf592Lxdijsv 7th, 2024 3:15pm April 01, 2025 6:40amAtorvastatin 20 mg jomcreIfulrzxdnlqm30WWTOUfpxg679 April 19, 2024 3:15pmSeptember 2024 6:40amTriamterene- Hydrochlorothiazid 37.5-25 mg tabletDiscontinued0.ROUTE.CFHEIAX455Yfthodp 7th, 2024 3:16pmJune 2024 1:38pmTAKE 1/2 (ONE-HALF) OF A TABLET BY MOUTH DAILY Levothyroxine 100 mcg iwpbkzZhasugmgybnr484KIBADZydgs600Ewpgovp 7th, 2024 3:18pm April 01, 2025 6:40amTAKE 1 TABLET BY MOUTH EVERY MORNING ON AN EMPTY STOMACH DO NOT EAT OR DRINK FOR 30-45 MIN AFTER TAKINGZolpidem 5 mg tablet Rvvppzwsxvlv0SMNXRsjst at ibfkxxs77481Xoamesd 25th, 2024 12:01pmApril 2024 7:03amInsomnia Insomnia, unspecifiedCiprofloxacin Hcl (Cipro) 500 mg ckqzpmZrwbjacvaset832GGPR Twice plcij6246Nvzrjkye 2023 8:54amJanuary 2024 1:38pmVenlafaxine 75 mg capsule,extended release 32ipApzobfnlmgse7.ROUTE.MHQKVVQ297Bbpuiisd 2023 12:36pmJune 2024 1:38pmTAKE 1 CAPSULE BY MOUTH EVERY DAY WITH FOOD Pregabalin (Lyrica) 225 mg jzmzqzhRledztvlyesy325NNJTFrhff znqkl622263Qqkpr 2024 3:43pmAugust 2024 2:11pmChronic back pain Dorsalgia, unspecified Other chronic painZolpidem 5 mg szryoeFnktssfingad6SXKTBfvxn at odysbmz83923 October 28, 2024 7:03amOctober 2024 7:10amInsomnia Insomnia, unspecifiedInsulin Glargine (Lantus Solostar U-100 Insulin) 100 unit/mL (3 mL) insulin llyCmadia11XLRCBEGQKVYgotk lholbwe13539Mfgu 2024 8:44amUnknownEzetimibe 10 mg tabletDiscontinued0.ROUTE.CTUMLZP873Mnoiwislu 19th, 2025 6:40amOctober 2024 11:01amTAKE 1 TABLET BY MOUTH DAILYLevothyroxine 100 mcg tabletDiscontinued0.ROUTE.JCOBHAV801Wluiomhis 19th, 2025 6:40amOctober 2024 11:01amTAKE 1 TABLET BY MOUTH IN THE MORNING ON AN EMPTY STOMACH. Do not eat or drink for 30-45 MINUTES after takingLisinopril 10 mg tablet Discontinued0.ROUTE.JYUGUCG301Nzahmwgoo 19th, 2025 6:40amOctthe medical center 2024 11:01amTAKE 1 TABLET BY MOUTH DAILYTriamterene-Hydrochlorothiazid 37.5-25 mg tabletActive0.ROUTE.ZUIDRSY006Shiasdcro 19th, 2025 6:40amTAKE 1/2 (ONE-HALF) OF A TABLET BY MOUTH DAILYUnknownPropranolol 60 mg capsule,extended release 24 hr Discontinued0.ROUTE.XGTOKKY725Dcdzuxfuo 19th, 2025 6:40amOct2024 11:01amTAKE 1 CAPSULE BY MOUTH DAILYAtorvastatin 20 mg tabletDiscontinued0.ROUTE .ILBHNZC036Xxbiztkzu 19th, 2025 6:40amOctthe medical center 2024 11:01amTAKE 1 TABLET BY MOUTH DAILYPregabalin (Lyrica) 150 mg slimyayMeruzy687SJHTXpatp oftyr691047 April 01, 2025 8:46amNeuropathy Polyneuropathy, unspecifiedUnknownMetformin 500 mg htgmwuBimfgs990CPQMDoibw geemx8225Btrlosvbu 19th, 2025 8:54amUnknownDoxycycline Hyclate 100 mg capsule Zfqyjrbvshdk393ADGJLfhjt dbqmu72621Mjmcawt 15th, 2025 11:00pmNov2024 2:45pmOxycodone-Acetaminophen (Percocet) 5-325 mg frledvOdnxgt9GWHDS.HZESLDS3767 0October 2024Other spondylosis with radiculopathy, lumbar region Other spondylosis with radiculopathy, lumbar region pain1 tab orally one to two times a day as neededUnknownAlbuterol Sulfate 2.5 mg /3 mL (0.083 %) solution for nebulizationActive2.5MGINHALATIONEvery 4 hours as needed for shortness of breath or fpfntmkf827Rdxxycv 2024 9:03amUnknown Zolpidem 5 mg fmubobDznejs9RSFYMljgh at mbggvut28463Tqnwpqk 2024 7:10am Insomnia Insomnia, unspecifiedUnknownHydroxychloroquine 200 mg GbtjdgJawysqhffimj503JHYV dailyAugust 2016 11:00pmSept2016 8:58amFibromyalgiaOxycodone- Acetaminophen 5-325 mg RvwrzcFmdfarodaedr6XAXQKWIYRX 4-6 HOURS as needed for PainAugust 2016 11:00pmApril 02, 2017 8:59amMetformin 1,000 mg IyqodqQepbdivnogme5432HGLMSmuav dailyAulea [facility]2016 11:00pmApril 02, 2017 8:58amDiabetesEzetimibe (Zetia) 10 mg PdiofwGvnqjoiuqnxo30AZWFcrqivLipqww 30th, 2017 11:00pmApril 02, 2017 8:58amPregabalin (Lyrica) 225 mg Capsule Wvqnvctuvjiq136KAVFRrmho dailylea [facility] center2016 11:00pmApril 02, 2017 8:59amInsulin Glargine (Lantus Solostar U-100 Insulin) 100 unit/mL (3 mL) Insulin FrbNbwvadnqhtdf16CFLTRHEUVPBoynp at bedtimeGreen Mountain 2016 11:00pm April 02, 2017 8:58amDiabetesPropranolol 60 mg Capsule,Extended Release 24 FbZaolxhggpvda93REKSLpusz with supperAugust 2016 11:00pmApril 02, 2017 8:59amHypertensionAtorvastatin 20 mg RylcxgPkjlbfvtdfcn44ECPDSovworlAbcgjy 30th, 2017 11:00pmApril 02, 2017 8:58amHypercholesterolemiaMultivitamin (Multiple Vitamins) VrcvmnTyokilrygnrd9HKLAUEmwioZgnhng 30th, 2017 11:00pm April 02, 2017 8:59amSupplementCitalopram 40 mg OfebtdQuplohuarqty68YANE dailylea [facility] center2016 11:00pmApril 02, 2017 8:58amDepressionCalcium Carbonate-Vitamin D3 (Calcium 600 + D(3)) 600 mg(1,500mg) -200 unit Tablet Chxpkcglrphj5XBSLDceuwvQvseyg 30th, 2017 11:00pmApril 02, 2017 8:58am Osteoporosis preventionLevothyroxine 75 mcg NdbhhpNncfpeqtfwbk63YTMSNgarjlXovhmg 30th, 2017 11:00pmApril 02, 2017 8:58amHypothyroidismLisinopril 10 mg OhvjhtVrlmunnotucv21IUIJwyjfmJrkpmv 2016 11:00pmApril 02, 2017 8:59amHypertensionTriamterene-Hydrochlorothiazid 37.5-25 mg TabletDiscontinued1 TABPODailyAugust 2016 11:00pmApril 02, 2017 8:59amHypertension Furosemide 20 mg BirfnnEtgoxyyluqbr62QFZEebppvChxxoq 2016 11:002016 8:58amEdemaZolpidem 5 mg VxecbcJdvdunxizjli3ORGJGqepiijJuooft 2016 11:002016 8:59amInsomniaAspirin 81 mg Tablet,Chewable Uquzzpzchitm32SOREDmxyqYcuaay 2016 11:002016 8:58amMI preventionSennosides-Docusate Sodium (Dok Plus) 8.6-50 mg RalsujXfbzzsexlgub9EIY POTwice ogykb17751Gxjryqifw2016 11:002016 8:59am Oxycodone-Acetaminophen 5-325 mg UobrmnYkimbbajggpz3XMIGWU9C as needed for Pain Scale 1 - 228358VkuiiwuvrMarch 25, 2017 11:002016 8:59amFentanyl 25 mcg/hr Patch 72 IfjeOxixtbwuseor18ZUEKHLEQJVHFTRjcuh 72 grrqz7319AmdjnfzbqMarch 25, 2017 11:002016 8:58amFerrous Sulfate 324 mg (65 mg iron) Tablet,Delayed Release (Dr/Ec)Ojpkcmgdetbe118SFXFYlyxe xuwdc18934GaxiinrntMarch 25, 2017 11:002016 8:58amSulfamethoxazole-Trimethoprim (Bactrim Ds) 800-160 mg dwnlmaFnsfvkoppcoc6QUHWPDdidh mnrue961GaxvsegwgMarch 25, 2017 11:002016 8:59amMetformin 500 mg EqcxjoHwhtwsuicdig9507ZREI Twice daily with mbcku279KvqdkspudApril 01, 2017 11:00pmJuly 2021 2:09pm Sennosides (Senna Lax) 8.6 mg AwsztkKboiouzghcnl7QKZCXITKPZZ@12 as needed for If no BM in 2 ayxs802Fcaucrzxq 19th, 2017 11:00pmJuly 2021 3:47pmAcetaminophen 325 mg CinmalJcrynibkzbxi214OZUGP0V as needed for Gdey749Ynitcfgrq 2016 11:00pmJuly 2021 3:42pmAcetaminophen 325 mg ScsempEluhjdwxbkpv137VZOSY9E as needed for Kdez689Kgpghvcot 19th, 2017 11:00pmJuly 2021 3:42pmAtorvastatin 20 mg SiwhwyLzsqtwfmqmpj95AKCVGbdgh lzigisw264TlzwubhbhApril 01, 2017 11:00pmJuly 2021 3:48pmCitalopram 40 mg SrwlzhKwpvjbhmjdco39ZZIXEntty vcimsaw619 April 01, 2017 11:00pmJuly 2021 3:43pmHydrocodone-Acetaminophen 5-325 mg ExiueoFtqcbhtrghrm3FREXXJ3A as needed for Severe Ziuh498Xdtrxjcrm 19th, 2017 11:00pmJuly 2021 10:19amHydrocodone-Acetaminophen 5-325 mg Tablet Rlzlqzrpzitz8BKYEXH8O as needed for Ddao403Mumthxewg 19th, 2017 11:00pmJuly 2021 3:44pmPropranolol (Inderal La) 60 mg Capsule,Extended Release 24 Hr Bsckpingulmb59CLFQZzbpa with vimfre541DnkeinhlrApril 01, 2017 11:00pmJuly 2021 3:46pmSulfamethoxazole-Trimethoprim 800-160 mg OywejqRixxoztzhffe3XDLKSUmhpl ehgeh82GlakufpvcApril 01, 2017 11:00pmJuly 2021 3:47pmLevothyroxine (Synthroid) 75 mcg XcdpurPngcmlelnlxr06MZICXFxpxv at 9523845LgmmnfbcjApril 01, 2017 11:00pmJuly 2021 2:09pmLisinopril 10 mg MftigqWtsxwxenbbem88FOMAXajwd702 April 01, 2017 11:00pmJuly 2021 2:09pmLidocaine 5 % Adhesive Patch,VuueppgzsAipgkjehuttj1OUOWCITRWNHYnacf102Sjdnuqyun 19th, 2017 11:00pmJuly 2021 3:45pmDocusate Sodium 100 mg DxyamwqJrsuymrygbsr124UTVQSvzin oanbc454 April 01, 2017 11:00pmJu2021 3:43pmTriamterene-Hydrochlorothiazid 37.5-25 mg TabletDiscontinued0.5TABPOEvery nhymfqj435NbdvzfmrwApril 01, 2017 11:00pmJuly 2021 3:48pmAspirin 81 mg Tablet,XjpdqtxtCaatidrhyxob03QSUYErcck 300April 01, 2017 11:00pmJuly 2021 2:09pmZolpidem 5 mg Tablet Irahaclupwaw8HFTBGzdxp at bedtime as needed for Vmgjg835Vfnjlhjob2016 11:00pmJuly 2021 3:48pmFurosemide 20 mg QxhutwNatekoqzurss94STBCIxnjr at 8255843BxmyipgurApril 01, 2017 11:00pmJu2021 3:48pmHydroxychloroquine 200 mg PsupdiIfbicmjvjnyh719UONRWpqfu366Timchwpkx 19th, 2017 11:00pmJuly 2021 3:45pmEzetimibe (Zetia) 10 mg ZnfvxgQqlwdmpovxrx25KZNXPxfyxmx790Uvktekhro 19th, 2017 11:00pmJu2021 2:09pmCyclobenzaprine 5 mg OwauviYrogahdogzvu9WWOG Q8H as needed for Muscle Pgfqg754Vstzkbxkf2016 11:00pmJu2021 3:43pmCalcium Carbonate-Vitamin D3 (Oyster Shell Calcium-Vit D3) 500 mg(1,250mg) -200 unit GmbwrhSbanvddphndh0EBISZMjjlw dbeyblv268NdjysbhchApril 01, 2017 11:00pm January 24, 2022 2:09pmPregabalin (Lyrica) 75 mg EqxklisJcxiyxemihvw538MVGXBpwiy patby329FhrqmehalApril 01, 2017 11:00pmJuly 2021 2:09pmInsulin Detemir U-100 (Levemir Flextouch U100 Insulin) 100 unit/mL (3 mL) Insulin CthLjgxdaokwemb26 UNITSUBCUTDaily at xvdzcfz2213Cxbmbzchs 19th, 2017 11:00pmOctober 2016 11:00pmOctober 2016 11:03pmFerrous Sulfate 324 mg (65 mg iron) Tablet,Delayed Release (Dr/Ec)Wsjfoekxluzb900DKEHOspnd liqiq455Gaahbmifm 19th, 2017 11:00pmJuly 2021 3:44pmMultivitamin With Folic Acid (Thera) 400 mcg HvqdeoLffxnfckxphd0QAPYKMdxis815Wpwdszfdb 19th, 2017 11:00pmJuly 2021 2:09pmAtorvastatin (Lipitor) 20 mg ibylroVbgopzfkcgzp25IWTUDkdhe eveningJuly 2021 3:48pmJuly 2021 2:09pmTriamterene-Hydrochlorothiazid (Maxzide- 25mg) 37.5-25 mg tabletDiscontinued0.5TABPOEvery morningJuly 2021 3:48pm January 24, 2022 2:09pmOn Hold: follow on rehab for resumptionZolpidem (Ambien) 5 mg gfhpvyRzffavqouapm9VZDBJnvjg at bedtime as needed for SleepJuly 2021 3:48pmJuly 2021 11:05amFurosemide 20 mg ucvxdwHduuahyfpdib98VNEWRnzvx at 0800July 2021 3:48pmJuly 2021 11:05amInsulin Glargine 100 unit/mL XselwiufzMqfxdomxslgi58SQBXLIZXICWvfbq at bedtimeJuly 2021 11:00pmJuly 2021 2:09pmVenlafaxine 75 mg capsule,extended release 06nyGyslikuguswh42KR PODailyJuly 2021 11:00pmJuly 2021 2:09pmOxycodone-Acetaminophen 5-325 mg jaatraOrjlrflxnsnk9RJBPIOwian as needed for PainJuly 2021 11:00pmJuly 2021 2:09pmAcetaminophen 325 mg AisaexCctftxqyftzf230HEFAU6L as needed for Pain Scale 1 - 3 or wsnpf54Gaqk 2021 11:00pmJuly 2021 2:09pmTramadol 50 mg QqiygfTvtuwiogweqt23YIOFT4W as needed for Pain Scale 4 - 700July 2021 11:00pmJuly 2021 4:36pmMelatonin 5 mg YieyzzAxgdypdwsfpq37UDBHPuvyu at jzicufq48Hqsd 2021 11:00pmJuly 2021 2:09pmInsulin Aspart U-100 (Novolog Flexpen U-100 Insulin) 100 unit/mL (3 mL) Insulin LviEamjcmpauetr5DSTZG QIOOZE8K/Day with meals and yhiipdm74Grdt 2021 11:00pmJuly 2021 4:37pm Levofloxacin 750 mg yfnznhDhnaiiowrdxy604XZUPBgqbg800Bgis 2021 11:00pmJuly 2021 2:09pmnext dose 7/7Insulin Aspart U-100 (Novolog Flexpen U-100 Insulin) 100 unit/mL (3 mL) insulin sxpMiyzgkkgxtze2CQSRXXOQIAU7C/Day with meals and bedtime Protocol: If the [...] = 400 mg/dL Dose/Route: 16 unitJuly 2021 4:37pmJuly 2021 2:09pmPlease contact the information source for Protocol details.Metformin 500 mg TfhdovSlerfgmnvilj9806 MGPOTwice daily with mrkkh610263Rqyl 2021 11:00pmApril 2023 12:47pm Atorvastatin 20 mg WyeffrFpwltkajnczs03LGGEFwdpe mtgvngh05644Vbfy 2021 11:00pmApril 2023 1:09pmLevothyroxine 75 mcg IgmbsbRddgrwkybpxy54OMYDSXwifw at 747305744Hcia 2021 11:00pmApril 2023 2:14pmLisinopril 10 mg Tablet Atcswipndxly21FZKRPqbsu98680Pods 2021 11:00pmApril 2023 1:08pmAspirin (Children's Aspirin) 81 mg Tablet,OgplgokmKjoita42KCLUGrecu88110Hqrc 2021 11:00pmUnknownEzetimibe 10 mg IrfjcuQqashzdmzedd87AQNCJzgravu60455Axpf 2021 11:00pmSeptember 2023 9:03amCalcium Carbonate-Vitamin D3 (Oyster Shell Calcium-Vit D3) 500 mg-5 mcg (200 unit) CkvucpOsoaengkzmsp9PZDXPHflpm bcheptt04484Goun 2021 11:00pmJune 2024 1:37pmInsulin Detemir U-100 (Levemir Flextouch U-100 Insuln) 100 unit/mL (3 mL) Insulin VmcFcjanuihimqn52 UNITSSUBCUTDaily at bedtime7.5300July 2021 11:00pmApril 2023 2:11pm Melatonin 5 mg FaldwnMksbraftaqdb22SZHTJzerb at kradyju60050Bfhz 2021 11:00pmApril 2023 2:12pmMultivitamin With Folic Acid (Thera) 400 mcg Tablet Bfabjz1HSMOHUiqul79051Nnwz 2021 11:00pmUnknownVenlafaxine 75 mg Capsule,Extended Release 42wpBiushztslrsu60IRCGJxvyd23390Yhgr 2021 11:00pm July 08, 2024 12:36pmOxycodone-Acetaminophen 5-325 mg TabletDiscontinued1 XQXZAA3Y as needed for Hkma843Akdo 2021July 2023 8:06amFracture of right wristPregabalin 75 mg OawqufvGellxayacssu433UNWHGppce atozq666183Qvyq 2021 11:00pmApril 2023 1:10pmChronic back pain 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 Dorsalgia, unspecified Other chronic pain Other intervertebral disc degeneration, lumbar region Intervertebral disc disorders with radiculopathy, lumbar regionTrospium 20 mg bbhyrkVnzkhudxvluw32NJIUOyvzr dailyAugust 2023 11:00pmApril 2024 2:54pmTrospium 20 mg lvwcbrSjngbb58PWRICrjkq daily as neededApril 2024 2:53pmUnknownOxycodone-Acetaminophen (Percocet) 5-325 mg qomkakDjwtsknrjgjf6JAN PO.JQUODYE43982Ymzepwu 2023January 2024 1:31pmOther spondylosis with radiculopathy, lumbar region Other spondylosis with radiculopathy, lumbar region pain1 tab orally one to two times a day as neededNitrofurantoin Monohyd/M-Cryst (Macrobid) 100 mg kgrzzrtOcdkjyxzwdeo321ICUQLgwii yunjc0303Yynffml 2023 11:00pmJanuary 2024 1:12pmmust administer with a meal/foodCiprofloxacin Hcl (Cipro) 500 mg igdtleWdgpfgwkpdst685YTRSMwxkj cpzud17057Kwtpbzmkd 2023 11:00pmOctober 2023 1:47pmDicyclomine 20 mg ympqgeQogxfrbcsxju72TCGTZtlqg hcwrs507Xzpsplhus 2023 11:00pmJune 2024 1:37pmMetformin 500 mg tablet Rlkwczcxedof566BEJAVqyas gicaq7881Wqjl 2024 1:16pmSeptember 2024 8:54amMagnesium Oxide 400 mg (241.3 mg magnesium) phrfchTxrxkl932EHMESekyo540 Flori 2024 11:00pmUnknownMetformin 1,000 mg fitumdJnspmnacvrvq8481IKXNSagvc dailyApril 2023 11:00pmOctober 2023 3:16pmCholecalciferol (Vitamin D3) 125 mcg (5,000 unit) ahlyvneRwatbt6941MDZHHSDt DirectedApril 2023 11:00pm FreeTextSig: as directed Orally; Note: Source Status: Taking; Provider: Mike Luther ( )UnknownAscorbic Acid (Vitamin C) 500 mg tabletActive 500MGPODailyApril 2023 11:00pmFreeTextSi tablet Orally Once a day; Note: Source Status: Taking; Provider: Mike Luther ( ) UnknownLevothyroxine 100 mcg vtxommOmjrrzzcyccs265JHAGPMjqbn before breakfast October 20, 2023 11:00pmOctober 2023 2:57pmTAKE 1 TABLET BY MOUTH EVERY MORNING ON AN EMPTY STOMACH; Note: Source Status: Taking; Provider: Sakina Izaguirre ( )Propranolol 60 mg capsule,extended release 24 hr Ltjditsomjiq96BEFRIjunsPfwew 2023 11:00pmOctober 2023 3:16pm FreeTextSig: TAKE 1 CAPSULE BY MOUTH DAILY; Note: Source Status: Taking; Provider: Sakina Izaguirre ( )Atorvastatin 20 mg jigwesBemiidfsdstl88 MGPODailyApril 2023 2:22pmOctober 2023 3:16pmInsulin Glargine (Lantus Solostar U-100 Insulin) 100 unit/mL (3 mL) insulin cgtRlemlhzumhib82DVKPFZOLNL Every eveningApril 2023 2:50pmJuly 2023 2:07pmLisinopril 10 mg tablet Aqotfqybxdig70EOWGYbldaNkrfa 2023 2:51pmOctober 2023 3:16pm Triamterene-Hydrochlorothiazid 37.5-25 mg ewbvctFlcaznmxsqqz9PAKrjpqUszja 2023 11:00pmApril 2023 1:09pmtake 1/2 tablet by mouth dailyPregabalin (Lyrica) 225 mg vwxqducRohyzlrqhise287QSOHFwybv qhrej044485Jqzai 2023 11:00pmApril 2023 1:12pmChronic back pain Dorsalgia, unspecified Other chronic painPregabalin (Lyrica) 225 mg yubfjlhSdknfgdxsrqb583CAOLSkbrg lysrl608233Lgzbr 2023 1:11pmSeptember 2023 9:02amChronic back pain Dorsalgia, unspecified Other chronic painZolpidem 5 mg krdwkdLigcnycgqqpt3TUCJRdpcv at bedtimeApril 2023 11:00pmApril 2023 11:43amZolpidem 5 mg cpyocpDgtzhmhnxbeq9RJWF Daily at sstwwyn57237Sczmi 2023 11:43amOctober 2023 12:01pmInsomnia Insomnia, unspecifiedInsulin Glargine (Lantus Solostar U-100 Insulin) 100 unit/mL (3 mL) insulin mcpRpuiiqofxmgs39HVZLDRXWGWBrspr at bedtimeApr2023 11:00pmApril 2023 1:21pmAmoxicillin 500 mg bujxkosEzmhmhnhfjmr1624EVGJ Every 12 decdo57613Vode 2023 11:00pmJuly 2023 7:16amOxycodone- Acetaminophen (Percocet) 5-325 mg mssuekJlquprzywssb1DKLBE.TFIBJDT01282Ptth 2023October 2023 2:15pmOther spondylosis with radiculopathy, lumbar region Other spondylosis with radiculopathy, lumbar region pain1 tab orally one to two times a day as neededHydroxychloroquine 200 mg sxomohIdwetoehpvpg884BRWTTuxzs dailyJanuary 2024 12:00amApril 2024 2:52pmOxycodone-Acetaminophen (Percocet) 5-325 mg gzqeasVhfnvcbymjyq7UCNQN .BHPQEGU79276Ayqdgzy pril 2024 3:16pmOther spondylosis with radiculopathy, lumbar region Other spondylosis with radiculopathy, lumbar region pain1 tab orally one to two times a day as neededCiprofloxacin Hcl (Cipro) 500 mg juxckeFoajvjknllba990ZPUQArgev vruar6107Iyaoxvp 2024 1:38pmApril 2024 2:51pmEstradiol 0.01 % (0.1 mg/gram) creamActiveVAGINAL3 Times a weekApril 2024 11:00pmUnknownOxycodone-Acetaminophen (Percocet) 5-325 mg tablet Cnpkimtrskxn5EBGYJ.KOHTBUC91378Xhlfk ugust 2024 2:21pmOther spondylosis with radiculopathy, lumbar region Other spondylosis with radiculopathy, lumbar region pain1 tab orally one to two times a day as neededPregabalin (Lyrica) 150 mg zegozwtGljbwjyvcoak160HZOTZwvme dhplm902146Nyofae 2024 11:00pmSeptember 2024 8:46amNeuropathy Polyneuropathy, unspecifiedOxycodone-Acetaminophen (Percocet) 5-325 mg tablet Ecrukmghjqjj7IESWN.DDHNTKR36481Pwzedh 2024October 2024 11:20amOther spondylosis with radiculopathy, lumbar region Other spondylosis with radiculopathy, lumbar region pain1 tab orally one to two times a day as neededOxybutynin Chloride 5 mg tablet Zeiwaq8MDRMQbuzmLkfe 2024 11:00pmUnknownTriamterene-Hydrochlorothiazid 37.5-25 mg tabletDiscontinued0.5TABPOOnceJune 2024 1:33pmJuly 2024 1:00pmVenlafaxine 75 mg capsule,extended release 39zwKmdrxgelwack17OGBXAhgsOoss 2024 1:34pmJuly 2024 1:00pmHydroxychloroquine (Plaquenil) 200 mg insieeQsupds241AHPEYmoghFfhb 2024 11:00pmUnknownB-Complex With Vitamin C kcclrxYjvftr3QNRAXXtdfrGcyu 2024 11:00pmUnknownVenlafaxine 75 mg capsule,extended release 46zpOucste66PCFOKoescYugu 2024 12:59pmUnknown Triamterene-Hydrochlorothiazid 37.5-25 mg tabletDiscontinued0.5TABPODailyJuly 2024 12:59pmSeptember 2024 6:40amAlbuterol Sulfate 90 mcg/actuation HFA aerosol ylnwmzuKdlvcq8MVSHAVUGUXUPGJV8J5578Mnuozkv 2024 11:00pmUnknown Prednisone 20 mg bblkivSzkzeeabujut63FFTOAywma fjkwd4463Nymjmsu 2024 11:00pmNovember 2024 2:46pmAlbuterol Sulfate 2.5 mg /3 mL (0.083 %) solution for nebulizationDiscontinued2.5NVFEXDUEOGGNF5Q as needed for shortness of breath or ceumdfhk8392Vtqovwn 2024 11:00pmOctober 2024 9:04am Propranolol 60 mg capsule,extended release 24 ncEwwvej84ORIHPxlqnIuyyfrd 2024 10:59amUnknownLisinopril 10 mg wsayltWnewrz78SCJQUtfdmBsakvzc 2024 11:00amUnknownLevothyroxine 100 mcg jhnkcaHtoykz885ATSAA.COMPLEXOctthe medical center 2024 11:66td940 mcg orally TAKE 1 TABLET BY MOUTH IN THE MORNING ON AN EMPTY STOMACH. Do not eat or drink for 30-45 MINUTES after taking;UnknownEzetimibe 10 mg rhhparOmsemc78GLALBgobpNwvaidh 2024 11:00amUnknownAtorvastatin 20 mg hcbztwAwldxm85OZREIoeveOxlfwts 2024 11:01amUnknownPrednisone 20 mg tablet Ixxatqvjtmmv7CX.with food or vxbl6106Ooiljtd 2024 11:00pmNovember 2024 2:46pmtake 3 tablets a day x3 days, 2 tabs a day x3 days and then 1 tab a day x3 days orally WITH FOOD ORMILK; Immunizations Immunization Event Date Not Given Reason Dose Number Fit Model Lot Number Reason(s) Given Vaccine Information Statement (VIS) Detail Administration Location COVID-19 mRNA, Comirnaty ([place]) August 11, 2020 COVID-19 mRNA, Comirnaty ([place])September 01OVID mRNA, Comirnaty ([place])June 01OVID mRNA Bivalent Booster ([place])April 18OVID-19 (Taomee) 12Y and olderDecember OVID-19 (Taomee) 12Y and olderSeptember 2023Fluzone TIV High-Dose 65YR+ March 19, 2024Fluzone QIV High-Dose 65YR+April 04, 2021Fluzone QIV High-Dose 65YR+April 15, 2023Influenza, trivalentSeptember 2018 Influenza Quadrivalent PF MDCKNovember 2017influenza, unspecified formulationSeptember 2020influenza, unspecified formulationOctober neumococcal Conjugate Vaccine, 13 valentJanuary 2019Pneumococcal Conjugate Vaccine, 20 valentDecember neumococcal Polysacc. Vaccine, 23 valentSeptember 2018Pneumococcal Polysacc. Vaccine, valentOctober 2RSV, preF3, adj, pfDecember 2022Zoster Vaccine Recombinant, AdjuvantedDecember 2022Tetanus, Diphtheria, Pertussis (Tdap)January 13, 2022 860V5VpwpjcfqeFort [facility] CtrTrivalent Influenza VaccineNov2017Trivalent Influenza VaccineSeptember 2018 Medical Equipment Device Date [...] RODSeptember 2016NUVASIVE KAREEM March 24, 2017OSTEOAMP GRANULES 10CCSept2016 Procedures Procedure Date Performed Status MM screening mammo BI w/CAD May 19, 2025 1 1:14am completed XR chest 2V* April 25, 2025 11:00pm compl eted Relevant Diagnostic Tests and/or Laboratory Data Laboratory Results Test Collection Date/Time Result Date/Time Result Interpretation Reference Range Result Comment Performing Site Absolute Basophils (Manual) March 16, 2025 7:38am March 16, 2025 7:38am 0.00 10 3/uL 0.00-0.10[facility] 2024 7:38am39.4 %36.0-48.0[facility]ion [facility]2024 7:38amSept2024 7:38am11.8POC SARS-CoV-2 RNA (PCR)April 26, 2025 12:53pmOctober 2024 1:41pmNegativeFree ThyroxineFormerly [facility]2024 11:49amNovember 2024 11:49am1.14 ng/dL0.76-1.46Thyroid Stimulating Hormone [facility] GenFormerly [facility]2024 11:49amNove2024 11:49am2.164 u[iU]/mL0.358-3.740Free [facility] 2024 11:49amNoveph[facility] 2024 11:49am2.90 pg/mL2.18-3.98Cholesterol/HDL RatioNveterans health [facility] 2024 11:49am May 16, 2025 11:49am2.73.3 - 4.4 LOW RISK4.4 - 7.1 AVERAGE RISK7.1 - 11.0 MODERATE RISK>11.0 HIGH RISKAnion GapFormerly [facility]2024 11:49amNove2024 11:49am14.8Estimated Average GlucoseMay 16, 2025 11:49amNove2024 11:19se532 mg/dLBasophils %March 16, 2025 7:38amSoste[facility]2024 7:38am0.0 %Below low normal0.2-2.0HemoglobinSept2024 7:38am12.8 g/dL 12.0-16.0BUN/Creatinine RatioSept2024 7:38amSept2024 7:38am22.6POC Influenza A (PCR)April 26, 2025 12:53pmOctober 2024 1:41pmNegativeCholesterol LevelFormerly [facility]2024 11:49amNovephoenix [facility] 2024 11:76yc471 mg/dL<=200Albumin/Globulin RatioNove2024 11:49amNovemb2024 11:49am0.9Hemoglobin I3wMbltaquwMay 16, 2025 11:49amNovemb2024 11:49am8.1 %Above high normal4.5-6.2ADA RECOMMENDED LIMIT 4.0 - 6.0ADA THERAPEUTIC TARGET < 7.0ACTION SUGGESTED> 7.0Eosinophils # (Manual)March 16, 2025 7:38amSept2024 7:38am0.37 10 3/uL0.00-0.70Mean Corpuscular HemoglobinSept2024 7:38am30.5 pg26.7-34.0Blood Urea NitrogenSept2024 7:38amSept2024 7:38am28.0 mg/dLAbove high normal7.0-18.0 POC Influenza B (PCR)April 26, 2025 12:53pmOctober 2024 1:41pmNegative HDL CholesterolMay 16, 2025 11:49amNove2024 11:49am53 mg/dL40-60 > or =60 mg/dl - LOW CARDIOVASCULAR RISK<40 mg/dl - HIGH CARDIOVASCULAR RISK AlbuminMay 16, 2025 11:49amNove2024 11:49am3.0 g/dLBelow low normal3.4-5.0Eosinophils %March 16, 2025 7:38amSept2024 7:38am 2.0 %0.9-7.0Mean Corpuscular Hemoglobin ConcentSept2024 7:38am32.5 g/dL29.9-35.2Calcium LevelSept2024 7:38amSept2024 7:38am 8.9 mg/dL8.5-10.1POC RSV (FARRAH)April 26, 2025 12:53pmOctober 2024 1:41pmNegativeLDL Cholesterol, CalculatedMay 16, 2025 11:49amNovemb2024 11:49am59.0 mg/dL<100 mg/dl HXNSCIC219-825 mg/dl NEAR OR ABOVE UCXXIUY968- 159 mg/dl BORDERLINE AOBT644-137 mg/dl HIGH>190 mg/dl VERY HIGHAlkaline PhosphataseNov2024 11:49amNovemb2024 11:49am92 U/L46-116 Lymphocytes # (Manual)March 16, 2025 7:38amSept2024 7:38am12.95 10 3/uLAbove high normal1.20-3.80Mean Corpuscular VolumeSept2024 7:38am93.8 fL81.0-99.0Chloride LevelSept2024 7:38amSept2024 7:71cl863 mmol/X67-485Qvjbxflfkccjn LevelNov2024 11:49amNove2024 11:22mk136 mg/dLAbove high normal<=150Alanine Aminotransferase (ALT/SGPT)May 16, 2025 11:49amNove2024 11:49am36 U/L14-59 Lymphocytes %March 16, 2025 7:38amSept2024 7:38am70.0 %Above high jtiavb98.5-60.0Mean Platelet VolumeSept2024 7:38am11.6 fL 9.5-13.5Carbon Dioxide LevelSept2024 7:38amSept2024 7:38am 30.0 mmol/L21.0-32.0VLDL CholesterolNov2024 11:49amNove2024 11:49am31.6 mg/dLAspartate Amino Transf (AST/SGOT)May 16, 2025 11:49am May 16, 2025 11:49am24 U/D09-46Yxdafdvrb # (Manual)March 16, 2025 7:38amSept2024 7:38am1.11 10 3/uLAbove high normal0.30-0.80Platelet CountSept2024 7:08bc724 10 3/vY856-132SmehwinbaqHgmiodfav 3rd, 2025 7:38amSept2024 7:38am1.24 mg/dLAbove high normal0.55-1.02 BUN/Creatinine RatioNove2024 11:49amNove2024 11:49am17.9 Monocytes %March 16, 2025 7:38amSept2024 7:38am6.0 %1.7-12.0Red Blood CountSept2024 7:38am4.20 10 6/uL4.20-5.40Estimated GFR ()March 16, 2025 7:38amSept2024 7:81wt25Yevvs low normal >=60 mL/min/1.73m 2Blood Urea NitrogenNov2024 11:49amNove2024 11:49am21.0 mg/dLAbove high normal7.0-18.0Segmented Neutrophils # (Manual) March 16, 2025 7:38amSept2024 7:38am4.07 10 3/uL1.4-6.5Red Cell Distribution WidthSept2024 7:38am13.3 %11.0-15.0Estimated GFR (Non- AmericanSept2024 7:38amSept2024 7:94lm30Aclso low normal>=60 mL/min/1.73m 2Calcium LevelNov2024 11:49amNove2024 11:49am8.9 mg/dL8.5-10.1Segmented NeutrophilsSept2024 7:38am March 16, 2025 7:38am22.0Below low mrecrg53.0-75.0Corrected White Blood CountSept2024 7:38am18.5 10 3/uLAbove high normal4.0-11.0Glucose LevelSept2024 7:38amSept2024 7:80dl800 mg/dLAbove high hpcgyq31-672Vhddtauq LevelNov2024 11:49amNove2024 11:49am 108 mmol/LAbove high -991Ppkenlphj LevelSept2024 7:38am March 16, 2025 7:38am4.8 mmol/L3.5-5.1Carbon Dioxide LevelNov2024 11:49amNove2024 11:49am26.7 mmol/L21.0-32.0Sodium LevelSeptember 2024 7:38amSeptember 2024 7:39fh583 mmol/V518-351VgkntgebfnFkebferf 3rd, 2025 11:49amNovember 2024 11:49am1.17 mg/dLAbove high normal0.55-1.02 Estimated GFR ()May 16, 2025 11:49amNovember 2024 11:25wr35Ipmry low normal>=60 mL/min/1.73m 2Estimated GFR (Non- May 16, 2025 11:49amNovember 2024 11:08cp23Zxdea low normal>=60 mL/min/1.73m 2GlobulinNovember 2024 11:49amNovember 2024 11:49am3.4 g/dLGlucose LevelNovember 2024 11:49amNovember 2024 11:53av436 mg/dL Above high amrkxk10-281Tgmfdlaxl LevelNov2024 11:49amNovember 2024 11:49am4.5 mmol/L3.5-5.1Sodium LevelNov2024 11:49amNovember 2024 11:88sv765 mmol/P849-422Zaefu BilirubinNov2024 11:49amNovember 2024 11:49am0.4 mg/dL0.2-1.0Total ProteinNov2024 11:49amNovember 2024 11:49am6.4 g/dL6.4-8.2 Diagnostic Imaging Reports Author Favian Pacheco [facility] HospitalReport Date/TimeNovember 2024 3:39pm [facility] [address] [place] [address] Mammography Report Signed Patient: Kathy Washburn MR#: [id number] : 1940 Acct:[id number] Age/Sex: 84 / F Adm Date: 5 Loc: [place] Room: Type: REG CLI Attending Dr: Dmitriy Girvin DO Ordering Provider: Dmitriy Presley DO Date of Service: 05/19/25 Procedure(s): MM screening mammo BI w/CAD Accession Number(s): ([id number]) MM/MM screening mammo BI w/CAD: Z12.31 - Encounter for screeningmammogram for malignant ... Copies to: Dmitriy Presley DO~ CLINICAL DATA: Screening for malignancy. BILATERAL SCREENING MAMMOGRAMS - FULL FIELD DIGITAL WITH TOMOSYNTHESIS AND CAD Tomosynthesis craniocaudal and mediolateral oblique views of both breasts were obtained using low-dose digital technique. Comparison is made to prior studies from 05/18/2024, 08/29/2022, and 08/31/2015.This examination was reviewed with the aid of CAD. There are scattered fibroglandular densities. Benign-appearing calcifications are present. Similar focal asymmetries are present. There are no dominant masses, typically malignant calcifications or architectural distortion. There has been no significant interval change. MM/MM screening mammo BI w/CAD IMPRESSION: NO MAMMOGRAPHIC EVIDENCE OF MALIGNANCY. ROUTINE FOLLOW-UP IS RECOMMENDED IN ONE YEAR. RESULT CODE: 2 Benign Findings(s) DENSITY CODE: 2 (approximately 25-50% glandular) There are scattered areas of fibroglandular density. FOLLOW UP: 1YR The false-negative rate of mammography is approximately 10-percent. Management of a palpable abnormality must be based on clinical grounds. Patient was entered into a reminder system with a target due date for the next mammogram. Impression dictated by: Favian Pacheco M.D. 05/19/2025 3:39 PM Dictation Location: [facility] Dictated By: Favian Pacheco II, MD 05/19/25 1533 Signed By: <Electronically signed by Favian Pacheco II, MD in OV> 05/19/25 1539 Vital Signs Vital Reading Result Reference Range Collection Date/Time Height 69 [in_i] April 26, 2025 12:84uoJjuvkv087.68 kgOctober 2024 12:44pmBody Xhqcaodiaqh00.3 [degF]97.6-99.0October 2024 12:44pmHeart Rate80 /eqm82-587 April 26, 2025 12:44pmRespiratory rate20 /cye67-48Rdxdczi 14th, 2025 12:44pm Oxygen saturation by Pulse uqmsdndl26 %95-100April 26, 2025 12:44pmBP Rzjhugqy94 mm[Hg]100-140April 26, 2025 12:44pmBP Cekmukqkt47 mm[Hg]60-100 April 26, 2025 12:44pmBMI (Body Mass Index)34.4 kg/g4HdhjjhiApril 26, 2025 12:86kdSxzdml84 [in_i]April 28, 2025 10:86pcCbivoe931.77 kgApril 28, 2025 10:01amBody Avldpmjjbrs48.2 [degF]97.6-99.0April 28, 2025 10:01amHeart Rate75 /ses78-415MgbejelApril 28, 2025 10:01amOxygen saturation by Pulse qeematju07 %95-100April 28, 2025 10:01amBP Tgsxnyln744 mm[Hg]100-140April 28, 2025 10:01amBP Fbqbbtvnd02 mm[Hg]60-100Oct2024 10:01amBMI (Body Mass Index)34.1 kg/l3Aqwbjjb2024 10:80hkYetfkh41 [in_i]May 18, 2025 2:56yeJdidgy846.14 kgMay 18, 2025 2:29pmBody Rrszlecfgnu32.2 [degF] 97.6-99.0May 18, 2025 2:29pmHeart Rate82 /mmb30-721MgwlhxmeMay 18, 2025 2:29pmOxygen saturation by Pulse ypnkdvjn17 %95-100May 18, 2025 2:29pmBP Xlaithmq065 mm[Hg]100-140May 18, 2025 2:29pmBP Ikqrbtyyn26 mm[Hg]60-100 May 18, 2025 2:29pmBMI (Body Mass Index)34.5 kg/j7ErtnmfmqMay 18, 2025 2:29pm Advance Directives Advance Directive Response Recorded Date/ Time Advance Directives No August 11, 2024 1:41pm Insurance Providers Guarantor Kathy Noelly Address [address] [place] [id number] Info.Home Phone: Payer Group Member ID Coverage Type Subscriber Relationship to Subscriber Effective Date Expiration Date Medicare [id number] L Whitely Id: [id number] [address] [place] [address] Home Phone: Email: [email or web address] [employer] Part A [id number] L Whitely Id: [id number] [address] [facility]illaUNC [facility] [phone] Home Phone: Email: [email or web address] Encounters Encounter Location(s) Arrival/Admit Date Discharge/Departure Date Discharge/Departure Disposition Provider(s) Non-patient / Non-visit -[facility]2024 8:38am Som Azul , MDDeparted Physician/Provider Office Visit-[facility] 2024 2:58pmDischarged to home care or self care (routine discharge)Mckenzie Christopher , ROLANDeparted Clinical-[facility] 2024 2:03pmOctober 2024 2:04pmDischarged to home care or self care (routine discharge)Mckenzie Christopher APRNDeparted Physician/Provider Office Visit-[facility] Family [facility] 2024 11:49amOctthe medical center 2024 12:26pmDischarged to home care or self care (routine discharge)Debbie Davila-patient / Kod-fmpbr-[place] [facility] May 16, 2025 11:49amDaPOORNIMA Gilberteparted Physician/Provider Office Visit-[facility] [place] [facility] [place], 20[place] 2:39pmNovpres[facility] 2024 3:19pmDischarged to home care or self care (routine discharge)Elicia Davilaarted ClinicalCenter for [facility] CareMay 19, 2025 11:13amNovephoenix [facility] 2024 11:14amDischarged to home care or self care (routine discharge)Dmitriy Presley , DO Recent Diagnosis Onset Date Admit Date Bronchiolitis Unknown April 26 1:42pm Fatigue Unknown April 28 11:49am Bronchiolitis Unknown April 28 11:49am Diabetes Unknown May 18 2:39pm Diarrhea Unknown May 18 2:39pm Impaired mobility and activi ties of daily living Unknown May 18, 2025 2:39pm Other abnormal blood chemistry Unknown N ov2024 2:39pm Other spondylosis with radic ulopathy, lumbar region Unknown May 18, 2025 2:39pm HLD (hyperlipidemia) Unknown May 2:39pm Hypothyroidism Unknown May 18 2:39pm Assessments Author Dmitriy Presley [facility] 2024 3:27pmThe above note written by ___Melanie Conde____ acting as human recorder, note dictated by Dr. Slater .I performed the above HPI, ROS, and Examination. I formulated and dictated the treatment plan and was present for entire encounter. Dmitriy Presley D.O. Author Dmitriy Presley [facility] 2024 11:41amThe above note written by ___Melanie Conde____ acting as human recorder, note dictated by Dr. Slater .I performed the above HPI, ROS, and Examination. I formulated and dictated the treatment plan and was present for entire encounter. Dmitriy Presley D.O. Plan of Treatment Author Melanie Conde [facility] 2024 3:16pmShe can tell the difference with the lower dose of Lyrica but voices that she is alright and is able to make it through the day. Discussed blood sugar results with patient today. She voices that she has not been careful with her diet. Her A1C was very good in October (2023). She has been eating [employer] and prior to that she did not have the deserts and candy around and was more aware of what she was eating. Her glucose is 114. Her A1C is now up from 7.0 to 8.1 which is higher than we would like to see. She believes in October (2024) she was using 36 units of insulin and is now using 34 units now. I encouraged her to increase her insulin dose to 36 units daily to gain better control of her A1C. Her protein status is low and I did recommend she increase her intake of protein daily. I would like her A1C goal to be at 7.5 or below. She voices that she will try to replace a desert with a protein. The adjustment of her Metformin dose has helped to improve her kidney studies. She follows with Dr. Arevalo for evaluation. Her BUN is 21. Creatinine was 1.17. EGFR is 44. Her kidney studies have improved with cutting her Metformin and Lyrica dose down. Discussed cholesterol results with patient today. Total is143. HDL is 53. LDL is 59.0. Triglycerides are 158. VLDL is 31.6. Again, we discussed her watching her intake of carbs and sugars. Stay active as tolerated. Her TSH is 2.164. Free T3 is 2.90. Free T4 is 1.14. She can continue with the same thyroid dose. She had diarrhea for five days. Two nights she had diarrhea that woke her up out of her sleep. No fever. She had to use Imodium for up to three days. We discussed that the Doxycycline can wipe out the good bacteria in the body and your body has to rebuild up the good bacteria. This was either the issue or she had a bug . She voices that after five days this seemed to straighten out. She is going to continue to monitor and will let me know if symptoms return. She has had a normal bowel movement since she had diarrhea. She has had a normal appetite. The pain clinic referred her to physical therapy for strengthening. She will start this later this week. I did advise her that she will benefit from this. Her protein level is very low. She voices that she loves protein. I did recommend that she increase her intake of protein in her diet. She will work on this. Author Mckenzie Christopher [facility] HospitalAuthoredOctober 2024 5:50pmAdvised that COVID/Influenza A/B/RSV PCR test was negative [...] agreeable to treatment plan.?? Author Melanie Conde [facility] 2024 11:20amWe discussed that her oxygen level is at [...] Tests Test Name Ordered Date Scheduled Date Comprehensive Metabolic Panel May 18, 2025 2:50pm 6 Months XR chest 2V* April 26, 2025 1:00pm Future Visits Future appointment information is unavailable Future Procedures Procedure Name Ordered Date Scheduled Date A1C with Estimated Average Glu May 18 2:50pm 6 Months Complete Blood Count Auto Diff May 18 2:50pm 6 Months Lipid Panel May 18, 2025 2:50pm 6 Robby hs Triiodothyronine (T3) Free May 18, 2025 2: 50pm 6 Months Free T4 (Free Thyroxine) May 18, 2025 2:50 pm 6 Months Thyroid Stimulating Hormone May 18, 2025 2 :50pm 6 Months Future Medications Future medication information is unavailable Patient Instructions Patient instructions are unavailable
--- OUTSIDE RECORDS SUMMARY | 2025-05-26 13:59 | XMS_ITS | Clinical Summary ---
Author Organization [facility] Address [address], [address] [place] [address] Care Team Providers Care Nut Picker Name Role Phone Dmitriy Presley DO Primary Care Provider Unavail able Allergies Active AllergyReactionsCriticalityNoted JaytBruazkonNoayqaylvrgxkb27/06/2019 Hxjmzuhqtdh08/06/2019 Medications MedicationSigDispense QuantityRefillsLast FilledStart DateEnd DateStatus methylPREDNISolone [...] InformationValueDate RecordedSex Assigned at BirthNot on fileLegal ZizDkgank45/12/2013 4:04 AM EST Gender IdentityNot on fileSexual OrientationNot on file Last Filed Vital Signs Vital SignReadingTime TakenCommentsBlood Pressure--Pulse--Wlwxybxbwgs19 ??C (96.8 ??F)06/18/2019 10:09 AM ESTRespiratory Rate--Oxygen Saturation--Inhaled Oxygen Concentration--Swawut310.6 kg (235 lb)06/18/2019 10:09 AM RHPLkwcqh824.8 cm (5' 10 )06/18/2019 10:09 AM ESTBody Mass Index33.7206/18/2019 10:09 AM EST Plan of Treatment Not on file Insurance Care Teams Team MemberRelationshipSpecialtyStart DateEnd Date Dmitriy Presley DO PCP - [facility]02/05/19
--- OUTSIDE RECORDS SUMMARY | 2025-05-26 13:59 | XMS_ITS | Clinical Summary ---
Author Organization [facility] Address [address] [place] [address] Phone Care Team Providers Care [place] Name Role Phone Dmitriy Presley DO Primary Care Provider [phone] Social History Tobacco UseTypesPacks/DayYears UsedDateSmoking Tobacco: Never Assessed CommentsUnknownSex and Gender InformationValueDate RecordedSex Assigned at Not on fileLegal JxsIabwav17/25/2022 3:02 PM ESTGender IdentityNot on fileSexual OrientationNot on file Plan of Treatment Health MaintenanceDue DateLast DoneCommentsLipid Panel1942Yearly Adult Rvcosdol1940DTaP/Tdap/Td Vaccines (1 - Tdap)1964Zoster Vaccines (1 of [...] DateEnd Date Dmitriy Presley DO PCP - Zxsipvh43/31/18
--- OUTSIDE RECORDS SUMMARY | 2025-05-26 13:59 | XMS_ITS | Patient Health Record ---
Author Organization [facility] in [place] Address [address] [place] [address] Care Team Providers Care Incident Response Engineer Name Role Phone Dmitriy Presley DO Primary Care Provider Unavailab Carolin Mc Unavailable [phone] Reason For Referral No Information Encounters Encounter Location Date Provider Diagnosis [facility] [address] [place] [address] 11/30/2024 Carolinroberto Silva [facility] [address] [place] [address]/19/2025 Carolin Silva Plan Of Treatment Next Appt Details Provider Name:CAROLIN SILVA , 06/28/2025 01:00:00 PM, [address] [place], [address], Insurance Providers Payer Name Payer Address Payer Phone Subscriber Number Group Number Insured Name Patient Relationship to Insured Coverage Start Date Coverage End Date [place]IC[place] [address] [place] [address] [id number] Adriel Washburn - patient is the [id number] 2007[facility] [address] [facility] [place] [id number], SandraSelf - patient is the [id number] 2007
--- OUTSIDE RECORDS SUMMARY | 2025-05-26 14:00 | XMS_ITS | Clinical Summary ---
Author Organization [facility] Address [address] [place] [address] Care Team Providers Care Armed Guard Name Role Phone Dmitriy Presley DO Primary Care Provider [phone] Dmitriy Presley DO Unavailable [phone] Dmitriy Presley DO Unavailable [phone] Allergies Active AllergyReactionsCriticalityNoted DateCommentsCephalosporinsHives,Swelling 02/20/20049316YocngckbswyYqukmwa42/21/2022 Medications MedicationSigDispense QuantityRefillsLast FilledStart DateEnd DateStatus LASIX [...] drink = 0.6 oz pure alcohol)PHQ-2AnswerDate RecordedPHQ-2 llydj058rea Deprivation IndexAnswerDate RecordedNational Score (1-100), lower number is lower risk61 02/07/2023State Score (1-10), lower number is lower nkgx324ata from: https://www.neighborhoodatlas.medicine.[facility].edu/. Last address used for [address] [facility]02/07/2023CommentsNoSex and Gender InformationValueDate RecordedSex Assigned at QrgirQvtkdy08/13/2021 3:09 PM EDT Legal GxmSebhxh25/02/2012 8:47 AM ESTGender IdentityNot on fileSexual OrientationNot on file Last Filed Vital Signs Vital SignReadingTime TakenCommentsBlood Qaeyiife677/7106 10:27 AM EDT Wmokx5774 1:54 PM ZTRGvbrywcrktv49.3 ??C (67 ??F)12/17/2024 10:27 AM EDT Respiratory Kble303007/26/2023 1:54 PM ESTOxygen Wirsauvdin64%05/26/2024 1:54 PM ESTInhaled Oxygen Concentration--Sxoquv854.6 kg (228 lb 6.3 oz)12/17/2024 10:27 AM ZXDMmouzp896.7 cm (5' 7.99 )12/17/2024 10:27 AM EDTBody Mass Index34.74 12/17/2024 10:27 AM EDT Plan of Treatment DateTypeDepartmentCare Team (Latest Contact Info)Lncmmrwswmt68/08/2026 11:00 AM EDTOffice Visit Rheumatology [address] [place], [place] [phone] [place] [address] [facility] [place], [place] [phone] Return in about 1 year (around 12/17/2025).Health MaintenanceDue DateLast Done ZmamelisBrC6A66/21/1947Diabetic Foot Exam2Dilated Retinal Exam 1952Urine Albumin:Creatinine Ratio2Anxiety Btuvlcsav15/21/1960 Depression Fqcwjqgbt46/21/1960LDL Dmhazkdeoeo61/21/1960Medicare Annual Wellness Visit06/13/2007Bone Density Kvllkkkrf86/21/2007Shingrix Vaccine (2 of 2) dvance Directive Svilavjuix10/01/2025Covid-19 Vaccine ( season)/12/2023, 06/23/2023, 04/18/2022, Additional history existsInfluenza Vaccine (#1)/12/2023, 04/15/2023, 04/25/2021, Additional history existsDTaP,Tdap,Td Vaccine (2 - Td or Tdap)01/14/2032 01/13/2022neumococcal Vaccine: 50+Defvoliqf56/11/2023, 04/22/2022, 07/14/2019, Additional history existsRSV IfimmdiCrafvpkrg79/11/2023 Insurance Care Teams Team MemberRelationshipSpecialtyStart DateEnd Date Dmitriy Presley, [address] [place] [address] PCP - GeneralFamily Medicine08/01/11 Dmitriy Presley DO [address] [place] [address] ReferringFamily Medicine10/04/20 Dmitriy Presley DO [address] [place] [address] ReferringFamily Medicine01/09/21
--- OUTSIDE RECORDS SUMMARY | 2025-05-26 14:00 | XMS_ITS | Clinical Summary ---
Author Organization 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 Name Role Phone Dmitriy Presley MD Primary Care Provider [phone] Maco Guillaume DO Unavailable [phone] Allergies Active AllergyReactionsCriticalityNoted JgpsTqbprmuhVswshlfajqjCsmjc81/06/2019 Other Reaction(s): Eye swelling NsmytoqwpmpjpdEqielts64/26/2023 Medications MedicationSigDispense QuantityRefillsLast FilledStart DateEnd DateStatus hydroxychloroquine [...] urethra 3x per week for UTI prevention, [employer] [facility], 178, cm, 08/16/24 9:10:00 EST, Height/Length Dosing, 103, kg, 08/16/24 9:10:00 EST, Weight Cghtpb815Active aspirin 81 MG EC tablet 1 (one) time each day at the same timeActive magnesium oxide (Mag-Ox) 400 (240 Mg) MG tablet Take 400 mg by mouth Daily5Active Active Problems ProblemNoted DateDiagnosed TodqQckeirya86/11/0534Aoudgwllylay42/11/2024chilles tendinitis of left lower /28/2023one spur of posterior portion of ovdpbpboh15/28/5297Iedeooxapofmz38/28/2023rtificial knee joint present 12/06/2022urning sensation of vulva12/06/2022Mixed memlzwsjugvw37/26/2023 Notalgia iyxpgssdsugv14/26/2023Other hammer toe(s) (acquired), left foot 12/06/2022Other hammer toe(s) (acquired), right foot12/06/2022Overactive bladder 12/06/2022Type 2 diabetes mellitus with peripheral qjcxztybyo31/26/2023 Unsteadiness on feet12/06/2022Vaginal vpbjjdz2012/06/2022Rheumatoid arthritis 06/04/2011enign essential iiebinfeuavd95/01/2010Disorder associated with type 2 diabetes tyxklhzk21/01/2010 Encounters DateTypeDepartmentCare PoycSwnrfrcypua10/06/2025 2:30 PM EDTOffice Visit [facility] [address] [place] [address] Nay Louis PA Clements angioma (Primary Dx); Seborrheic keratosis; Actinic keratosis; Lentigines; Lipoma of right upper whnqxoyyq76/06/2025amboo flowsheet [facility] [address] [place] [address] Nay Louis PA 04/18/2025Travelfrom Last 3 Months [...] InformationValueDate RecordedSex Assigned at Not on fileLegal XdjTpbkrq32/15/2023 7:08 PM EDTGender IdentityNot on fileSexual OrientationNot on file Last Filed Vital Signs Vital SignReadingTime TakenCommentsBlood Wsrgfnhh909/7607 1:23 PM EDT Fzccy8965 2:16 PM ESTTemperature--Respiratory Rate--Oxygen Zlqyenhgxz41% 06/17/2024 1:58 PM ESTInhaled Oxygen Concentration--Vyacxo073 kg (225 lb) 01/12/2025 1:23 PM VIBGvydmb367.3 cm (5' 9 )01/12/2025 1:23 PM EDTBody Mass Index33.23001/12/2025 1:23 PM EDT Plan of Treatment Health MaintenanceDue DateLast DoneCommentsCOVID-19 Vaccine ( season) , 06/23/2023, 06/01/2021, Additional history existsInfluenza Vaccine (#1), 04/15/2023, 04/25/2021, Additional history existsPneumococcal Vaccine: 65+ XcxxbGttpfifna21/11/2023, 04/22/2022, 07/14/2019, Additional history exists Procedures Procedure NamePriorityDate/TimeAssociated DiagnosisCommentsCRYOTHERAPY SKIN AUEZRFMaqzsgo28/06/2025 2:46 PM EDT Actinic keratosis from Last 3 Months Results * Cryotherapy, skin lesion (04/18/2025 2:46 PM EDT) Narrative Authorizing ProviderResult TypeResult StatusRye [facility] PROCEDURE ORDERABLESFinal Result from Last 3 Months Insurance Care Teams Team MemberRelationshipSpecialtyStart DateEnd Date Dmitriy Presley MD [address] [place] [address] [address] [place] [address] PCP - GeneralFamily Medicine12/10/22 Maco Guillaume DO [address] [place], [place] [address] Referring PhysicianNeurolog08/09/24
--- OUTSIDE RECORDS SUMMARY | 2025-05-26 14:00 | XMS_ITS | Patient Health Record ---
Author Organization [facility] Address [facility] [place] [address] Care Team Providers Care Iron Cutter Name Role Phone Dmitriy Presley DO Primary Care Provider Unavailab Willy Davis Unavailable [phone] Allergies Allergen (clinical drug ingredient) Drug/Non Drug Allergy documented on EMR Reaction Allergy Type Onset Date Status Medicinal cephalosporin and acting as antibacterial agent (FN) Cephalosporins Unknown Drug Allergy Active Reason For Referral No Information Medications Medication SIG (Take, Route, Frequency, Duration) Notes Start Date End Date Status Levothyroxine Sodium 100 MCG Tablet 1 ta blet in the morning on an empty stomach Orally Once a day ActiveEzetimibe 10 MG Tablet1 tablet Orally Once a dayActiveLisinopril 10 MG Tablet1 tablet Orally Once a dayActivePropranolol HCl ER 60 MG Capsule Extended Release 24 Hour1 capsule Orally Once a dayActiveVenlafaxine HCl 75 MG Tablet1 tablet with food Orally Once a dayActiveLyrica 225 MG Capsule1 capsule in the evening 1 to 3 hours before bedtime Orally twice a dayActiveLipitor 20 MG Tablet 1 tablet Orally Once a dayActiveAspirin 81 MG Tablet Delayed Release1 tablet Orally Once a dayActivemetFORMIN HCl 1000 MG Tablet1 tablet with a meal Orally twice a dayActiveAmbien 5 MG Tablet1 tablet at bedtime as needed Orally Once a dayActiveTriamterene-HCTZ 37.5-25 MG Tablet1 tablet in the morning Orally Once a dayActive Social History Tobacco Use: Social History Observation Description Date Details (start date - stop date) Former Smoker NA - NA Social History Social HistorySocial InfoQuestionAnswerNotesalcoholDo you use alcohol?Drinks alcohol sociallymarital statusmarital statuswidowedtobacco usePatient is a: former smokerquit 1998Additional DetailsCategorySocial InfoOptionsDetailsSocial Historyrecreational drug useno Problems Problem Type SNOMED Code ICD Code Onset Dates Problem Status W/U Status Risk Notes Problem Chronic lymphoid adela kemia, disease (38520318) 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) ActiveconfirmedProblemPolyneuropathy due to type 2 diabetes mellitus (801691433) Type 2 diabetes mellitus with diabetic polyneuropathy (E11.42)Activeconfirmed ProblemType 2 diabetes mellitus with peripheral angiopathy (135062666)Type 2 diabetes mellitus with diabetic peripheral angiopathy without gangrene (E11.51) ActiveconfirmedProblemDilatation of aorta (88530239)Thoracic aortic ectasia (I77.810)ActiveconfirmedProblemRheumatoid arthritis (54783749)Rheumatoid arthritis, unspecified (M06.9)ActiveconfirmedProblemTinea unguium (081460146) Tinea unguium (B35.1)ActiveconfirmedProblemImmunodeficiency disorder (disorder) (709058503)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) ActiveconfirmedProblemChronic kidney disease stage 3B (disorder) (025061899) Chronic kidney disease, stage 3b (N18.32)Activeconfirmed Vital Signs Blood pressure diastolic 78 mm Hg 05/19/2025 Fhtaiw71 in05/19/2025lood pressure gjzjayez780 mm Hg05/19/20259589Uzjuyf020 lbs 02/08/2025BMI34.26002/08/2025 Encounters Encounter Location Date [facility] [address] [place] [address] 08/10/2024 Willy Schwarz Tinea unguium B35.1 ; Type 2 diabetes mellitus with diabetic peripheral angiopathy without gangrene E11.51 ; Type 2 diabetes mellitus with diabetic polyneuropathy E11.42 ; Chronic lymphocytic leukemia of B-cell type not having achieved remission C91.10 ; Rheumatoid arthritis, unspecified M06.9 and Immunodeficiency due to conditions classified elsewhere D84.81 [facility] [address] [place] [address] 11/09/2024 Willy Schwarz Tinea unguium B35.1 ; Type 2 diabetes mellitus with diabetic peripheral angiopathy without gangrene E11.51 ; Type 2 diabetes mellitus with diabetic polyneuropathy E11.42 and emt intermediate (current) use of oral hypoglycemic drugs Z79.84 [facility] [address] [place] [address] 02/08/2025 Willy Schwarz Tinea unguium B35.1 ; Type 2 diabetes mellitus with diabetic peripheral angiopathy without gangrene E11.51 ; Type 2 diabetes mellitus with diabetic polyneuropathy E11.42 ; half-way (current) use of oral hypoglycemic drugs Z79.84 ; Chronic kidney disease, stage 3b N18.32 and Thoracic aortic ectasia I77.810 [facility] [address] [place] [address] 05/19/2025 Willy Schwarz Tinea unguium B35.1 ; Type 2 diabetes mellitus with diabetic peripheral angiopathy without gangrene E11.51 ; Type 2 diabetes mellitus with diabetic polyneuropathy E11.42 and emt intermediate (current) use of oral hypoglycemic drugs [...] laser therapy. Pt. agreed to periodic debridement today.05/19/2025Tinea unguium (ICD-10 - B35.1)I am treating this [...] diabetic peripheral angiopathy without gangrene (ICD-10 - E11.51)11/09/2024Type 2 diabetes mellitus with diabetic polyneuropathy (ICD-10 - E11.42)02/08/2025Type 2 diabetes mellitus with diabetic polyneuropathy (ICD-10 - E11.42)08/10/2024Type 2 diabetes mellitus with diabetic polyneuropathy (ICD-10 - E11.42)08/10/2024 Chronic lymphocytic leukemia of B-cell type not having achieved remission (ICD- 10 - C91.10)Stable from a podiatric perspective, stated to continue to follow up with the treating provider. Ifany acute issues arise patient advised to immediately call treating provider and patient confirms understanding of such. 11/09/2024Long term (current) use of oral hypoglycemic drugs (ICD-10 - Z79.84) 02/08/2025Long term (current) use of oral hypoglycemic drugs (ICD-10 - Z79.84) 05/19/2025Type 2 diabetes mellitus with diabetic polyneuropathy (ICD-10 [...] immediately call treating provider and patient confirms un derstanding of such.02/08/2025Thoracic aortic ectasia (ICD-10 - I77.810)Stable from a podiatric perspective, stated to continue to follow up with the treating provider. Ifany acute issues arise patient advised to immediately call treating provider and patient confirms understanding of such. Plan Of Treatment No Information Insurance Providers Payer Name Payer Address Payer Phone Subscriber Number Group Number Insured Name Patient Relationship to Insured Coverage Start Date Coverage End Date Medicare Part B J-15 Part [facility] Claims [address] [place] [address] [id number], Adriel - patient [facility] the [facility] Options [address] [place] [id number], Mary CarmenMelyssaelf - patient is the insured Medical (General) History Medical History History ICD Code Type II diabetes leukemiahypertensionosteoarthritisfibromyalgiaThyroid diseaseHypercholestrolemia Surgical History Surgery Date(Month/Year) hernia repair hysterectomyknee replacement x2back surgeryHospitalization History Reason Date(Month/Year) see surgical
--- OUTSIDE RECORDS SUMMARY | 2025-05-26 14:05 | XMS_ITS | CCD ---
Author Organization [facility] Inform ion 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 Kitty Villalobos Other Provider [phone] DO Madeline Juarez Other Provider MD Marcio [...] Provider PABLO Quarles Other Provider DO Gume aMcedo Other Provider MD Zohaib Akins II Other Provider DO Ayanna Vicente Attending Provider [phone] Ayanna Vicente DO Primary Care Provider [phone] Ayanna Vicente DO Unavailable Ayanna Vicente DO Unavailable DO Ayanna Vicente Primary Care Provider Ayanna Vicente DO Primary Care Provider Ayanna Vicente DO Unavailable [phone] Ayanna Vicente DO Unavailable [phone] DO Ayanna Vicente Primary Care Provider DO Ayanna Vicente Attending Provider MD Santos Lares Attending Provider Ayanna Vicente Primary Care Unavailable PABLO Dubon Attending Provider DO Ayanna Vicente Primary Care Provider DO Ayanna Vicente Attending Provider MD Santos Lares Attending Provider PABLO Dubon Attending Provider [phone] DR AYANNA VICENTE Primary Care Unavailable LAKSHMIPATHY ., NARENDRANATH Attending Abigail vailable VERNONMIPATHKamari ., NARENDRANATH Admitting Abigail vailable Ayanna Vicente Primary Care Physician DO Ayanna Vicente Primary Care Provider DO Ayanna Vicente Attending Provider Junior Butterfield Unavailable Homa Mckeon Unavailable Ayanna Vicente MD Primary Care Provider DO Ayanna Vicente Primary Care Provider DO Ayanna Vicente Attending Provider DO Ayanna Vicente Primary Care Provider [phone] DO Ayanna Vicente Attending Provider Ayanna Vicente DO Primary Care Provider Ayanna Vicente DO Unavailable [phone] Ayanna Vicente DO Unavailable DO Ayanna Vicente Primary Care Provider DO Ayanna Vicente Attending Provider Ayanna Vicente DO Primary Care Provider Ayanna Vicente DO Attending Provider [phone] Aundrea WISDOM Christopher Unavailable Ayanna Vicente DO Primary Care Provider Ayanna Vicente DO Attending Provider Tri Ag DO Attending Provider [phone] Ayanna Vicente DO Attending Provider AYANNA VICENTE Primary Care Unavailable SELF Referring Unavailable ZOHAIB GERMAN Attending Unavailable AYANNA VICENTE Primary Care Unavailable AYANNA VICENTE Primary Care Unavailable CHAD FREITAS Attending Unavailable ZOHAIB GERMAN Attending Unavailable AYANNA VICENTE Primary Care Unavailable Ayanna Vicente MD Primary Care Provider [phone] Aundrea WISDOM, Christopher Unavailable Aundrea , Christopher Unavailable [phone] Ayanna Vicente DO Attending Provider Ayanna Vicetne DO Primary Care Provider [phone] Lesli Arevalo MD Attending Provider [phone] Moe Betts DO Attending Provider Sujey Stewart Attending Unavailable SUSAN RANDOLPH Attending [...] Andrius Vytautas Attending Unavailable Giedraitis , Andrius Adelaide Attending Unavailable Giedraitis , Andrius Vytautmaria alejandra [...] Care Provider Lesli Arevalo MD Attending Provider Mckenzie Christopher APRN Attending Provider [phone] Ayanna Vicente DO Primary Care Provider Ayanna Vicente DO Primary Care Provider Latha ROMEO, Andri Attending Provider Mckenzie Christopher APRN Attending Provider [phone] Ayanna Vicente DO Attending Provider Mckenzie Christopher Admitting Unavailable Mckenzie Christopher Attending Unavailable Ayanna Vicente Primary Care Unavailable Ayanna Vicente Admitting Unavailable Ayanna Vicente Primary Care Unavailable Ayanna Vicente Attending Unavailable Marker, Tri Vasquez Admitting Unavailable Marker, Tri Vasquez Attending Unavailable Ayanna Vicente Attending Unavailable Ayanna Vicente Admitting Unavailable Ayanna Vicente Attending Unavailable Ayanna Vicente Admitting Unavailable Ayanna Vicente Primary Care Unavailable Ayanna Vicente Attending Unavailable Ayanna Vicente Admitting Unavailable Moe Betts Attending Unavailable Moe Betst Admitting Unavailable Ayanna Vicente Primary Care Unavailable Allergies Allergy ClassificationReported Allergen(s)Allergy TypeDate of OnsetReaction(s) FacilityCephalosporins (antibiotic) (1 source)Cephalosporins (Antibiotic)Drug Yrgrvae04-98-3450Zzulw, Swelling [facility] (20 sources)cefpodoxime; Translations: [Vantin]Drug Oazrlsg92-91-2429Pdy swelling (finding)[facility] (20 sources)cepahlosporinsPropensity to adverse reactionsProvidence City Hospital Xquva Other (20 sources)Cephalosporins (Antibiotic); Translations: [Cephalosporins]Allergy to urpnwbrdn26-36-8926Mcdxt, Swelling, Swelling (morphologic abnormality), Eye swelling (finding), UnknownOhio State East HospitalComment on above: Eyes swelled also (20 sources)cefpodoxime; Translations: [CEFPODOXIME]Drug Oxvgwen10-29-0519 Unknown, Other[facility] (1 source)AmoxicillinDrug Dyjyvph97-23-0551Cun [facility] (15 sources)Medicinal cephalosporin and acting as antibacterial agent (FN)Drug allergyUnkCranston General Hospital Xquva Other (2 sources)Bacitracin / Neomycin / Polymyxin BDrug AllergyProvidence City Hospital Xquva Other (20 sources)Bacitracin; Translations: [bacitracin]Drug Cuvtqsb72-79-4138QauhbwdOhioHealth Mansfield Hospital (20 sources)Neomycin; Translations: [neomycin]Drug Qorowtr18-47-5724UaemclmOhioHealth Mansfield Hospital (20 sources)polymyxin B; Translations: [polymyxin B]Allergy to substance 49-42-0752JnjftegOhioHealth Mansfield Hospital (1 source)cefpodoximeDrug Kkriqcs17-04-1929XxdamtaqvOhio State East Hospital Repository Medications Current Medications MedicationDrug Class(es)DatesSig (Normalized)Sig (Original)albuterol 0.83 mg/ml inhalation solution (12 sources)beta2-Adrenergic AgonistStart: 55-78-2599akrp 2.5 mg by inhalation every four hours as needed for wheezingStart: 57-57-7781isoh 1 puff(s) by inhalation every four hoursStart: 04-26-2025 End: 21-48-3169glab 2.5 mg by inhalation every eight hours as needed for wheezingAlbuterol Sulfate 2.5 mg /3 mL (0.083 %) solution for nebulization Discontinued 2.5 MG INHALATION Q8H as needed for shortness of breath or wheezing 63 7 0 April 25, 2025 11:00pm May 06, 2025 9:04amascorbic acid 500 mg oral tablet (20 sources)Vitamin CStart: 05-29-5811ohgo 1 tablet by mouth once dailytake 1 tablet by mouth every twenty-four hoursVitamin C 500 MG 1 tablet Orally Once a day Activeaspirin 81 mg chewable tablet (20 sources)Platelet Aggregation Inhibitor, Nonsteroidal Anti-inflammatory Drug Start: 97-26-0119hvji 1 mg by mouth once dailyaspirin 81 mg Oral EC Tab mg tab(s), Oral, Daily, Refills(s) 0 Start Date: 10/26/20 Status: Ordered Repeat number: 1Start: 03-13-2017 End: 01-88-1207ykxa 1 tablet by mouth once dailyAspirin 81 mg Tablet,Chewable Discontinued 81 MG PO Daily 30 0 April 01, 2017 11:00pm January 24, 2022 2:09pmStart: 91-87-5571XHGWVOI 81MG TABLET Indications: Other specified idiopathic peripheral neuropathy Take one (1) tablet daily . 0 02/20/2004 Active Aspirin 81 mg 1 tablet once a day ActiveComment on above:Take one (1) tablet daily .atorvastatin 20 mg oral tablet (20 sources)HMG-CoA Reductase InhibitorStart: 76-21-7364vfwm 1 tablet by mouth once dailyStart: 04-01-2025 End: 26-65-9596yoxs 1 tablet by mouth once dailyAtorvastatin 20 mg tablet Discontinued 0 .ROUTE .COMPLEX 90 3 April 01, 2025 6:40am April 28, 2025 11:01am TAKE 1 TABLET BY MOUTH DAILYStart: 10-13-2023 End: 69-66-5102godq 1 tablet by mouth once dailyAtorvastatin 20 mg tablet Discontinued 0 .ROUTE .COMPLEX 90 1 October 13, 2023 1:08pm October 21, 2023 2:22pm TAKE 1 TABLET BY MOUTH DAILYStart: 10-13-2023 End: 82-58-4477ckkw 1 tablet by mouth once dailyAtorvastatin Discontinued 0 .ROUTE .COMPLEX 90 October 13, 2023 1:08pm October 21, 2023 2:22pm TAKE 1TABLET BY MOUTH DAILYStart: 10-13-2023 End: 73-05-4330ohnm 1 tablet by mouth once dailyAtorvastatin Discontinued 0 .ROUTE .COMPLEX October 13, 2023 2:08pm October 21, 2023 3:22pm TAKE 1TABLET BY MOUTH DAILYStart: 31-25-7275skjb 1 tablet by mouth once dailyAtorvastatin Active 0 .ROUTE .COMPLEX October 13, 2023 2:08pm TAKE 1 TABLET BY MOUTH DAILYStart: 02-20-2004 End: 60-78-0714mdjs 1 tablet by mouth once dailyAtorvastatin 20 mg tablet Discontinued 20 MG PO Daily October 21, 2023 2:22pm April 19, 2024 3:16pm Start: 69-74-0842XNCGCHR 10MG TABLET Indications: Other specified idiopathic peripheral neuropathy Take 20 mg by mouth. 0 02/20/2004 ActiveStart: 02-20-2004 LIPITOR 10MG TABLET Indications: Other specified idiopathic peripheral neuropathy Take one(1) tablet daily. 0 02/20/2004 ActiveComment on above:Take one(1) tablet daily.Take 20 mg by mouth. B-Complex With Vitamin C tablet (9 sources)Start: 04-39-3796nyje 1 tablet by mouth once dailyStart: 12-16-2024 take 1 tablet by mouth once dailyB-Complex With Vitamin C tablet Active 1 TAB PO Daily December 15, 2024 11:00pm Complies with drug therapyStart: 59-59-0693btlv 1 tablet by mouth once dailyB-Complex With Vitamin C tablet Active 1 TAB PO Daily December 16, 2024 12:00am Complies with drug therapyStart: 98-49-4857exvu 1 tablet by mouth once dailyStart: 00-07-5704mwde 1 tablet by mouth once dailyB-Complex With Vitamin C tablet Active 1 TAB PO Daily December 16, 2024 12:00amCentrum Silver (20 sources)Centrum Silver ActiveCENTRUM SILVER TABLET (12 sources)Start: 91-47-5889AFJAHNI SILVER TABLET Indications: Other specified idiopathic peripheral neuropathy Take one(1) tablet daily. 0 02/20/2004 Active Comment on above:Take one(1) tablet daily.cholecalciferol 0.125 mg oral capsule (20 sources)Vitamin DStart: 56-41-4357dpcjizinwuynfnr (Vitamin D-3) 125 MCG (5000 UT) capsule 5,000 Units 10/21/2023 ActiveStart: 80-72-8397Mwqpxfg D3 125 MCG (5000 UT) as directed Orally ActiveVitamin D3 125 MCG (5000 UT) as directed Orally Activeciprofloxacin 500 mg oral tablet (20 sources)Quinolone AntimicrobialStart: 02-08-2025 End: 26-17-6703goyb 1 tablet by mouth every twelve hoursCipro 500 mg Tab 500 mg = 1 tab(s), Oral, q12hr, X 7 day(s), # 14 tab(s), Refills(s) 0, Pharmacy: [facility] #[id number], 178, cm, 02/08/25 9:03:00 EDT, Height/Length Dosing, 105.1, kg, 02/08/25 9:03:00 EDT, Weight Dosing Start Date: 02/08/25 Stop Date: 02/15/25 Status: Ordered Quantity: 14.0 Unit: tab(s) Repeat number: 1Start: 02-10-2024 End: 84-24-0839ngrq 1 tablet by mouth twice dailyCiprofloxacin Hcl (Cipro) 250 mg tablet Discontinued 250 MG PO Twice daily 10 5 0 February 09, 2024 11:00pm March 08, 2024 1:47pmStart: 05-20-2018 End: 61-27-6221fjma 1 tablet by mouth twice dailyCiprofloxacin Hcl (Cipro) 500 mg tablet Discontinued 500 MG PO Twice daily 14 7 0 August 11, 2024 1:38pm November 10, 2024 2:51pmestradiol 0.1 mg/ml vaginal cream (17 sources)EstrogenStart: 52-07-3941Fhoxyjl 0.1 mg/g Cream See Instructions, 42.5 gm, Refill(s) 6, apply a pea-sized amount vaginally and around the urethra 3x per week for UTI prevention, [facility] #72, 178, cm, 02/08/25 9 :03:00 EDT, Height/Length Dosing, 105.1, kg, 02/08/25 9:03:00 EDT, Weight Dosing Start Date: 02/08/25 Status: Ordered Quantity: 42.5 Unit: g Repeat number: 7 Start: 75-47-8834Hfrnb: 64-61-3021Qencwem 0.1 MG/GM vaginal cream See Instructions, 42.5 gm, Refill(s) 6, apply a pea-sized amount vaginally and around the urethra 3x per week for UTI prevention, [facility] #72, 178, cm, 08/16/24 9:10:00 EST, Height/Length Dosing, 103, kg, 08/16/24 9:10:00 EST, Weight Dosing 08/16/2024 ActiveStart: 76-94-7394Kbwdcgl 0.1 mg/g Cream See Instructions, 42.5 gm, Refill(s) 6, apply a pea-sized amount vaginally and around the urethra 3x per week for UTI prevention, [facility] #72, 178, cm, 08/16/24 9:10:00 EST, Height/Length Dosing, 103, kg, 08/16/24 9:10:00 EST, Weight Dosing Start Date: 08/16/24 Status: Orderedezetimibe 10 mg oral tablet (20 sources)Dietary Cholesterol Absorption InhibitorStart: 98-36-1770vrfp 1 tablet by mouth once dailyStart: 03-30-2024 End: 40-52-5422jlef 1 tablet by mouth once dailyEzetimibe 10 mg tablet Discontinued 0 .ROUTE .COMPLEX 90 3 April 01, 2025 6:40am April 28, 2025 11:01am TAKE 1 TABLET BY MOUTH DAILYStart: 32-23-2638wpgo 1 tablet by mouth once dailyEzetimibe Active 0 .ROUTE .COMPLEX 90 March 30, 2024 9:02am TAKE 1 TABLET BY MOUTH ONCE DAILYStart: 32-62-0620whuo 1 tablet by mouth once daily Ezetimibe Active 0 .ROUTE .COMPLEX 90 March 30, 2024 10:02am TAKE 1 TABLET BY MOUTH ONCE DAILYStart: 02-20-2004 End: 00-11-1901ivqq 1 tablet by mouth at bedtimeEzetimibe 10 mg Tablet Discontinued 10 MG PO Bedtime 30 30 0 January 23, 2022 11:00pm March 30, 2024 9:03amComment on above:Take one(1) tablet daily.Glucometer (20 sources)Start: 42-21-5389Ejuzfoxovk Feb, ActivehydroCHLOROthiazide 25 mg / triamterene 37.5 mg oral tablet (20 sources)Potassium-sparing Diuretic, Thiazide DiureticStart: 87-70-0351yxzp 0.5 tablet by mouth once dailyStart: 01-27-2025 End: 66-98-3536qrgx 0.5 tablet by mouth once dailyTriamterene-Hydrochlorothiazid 37.5-25 mg tablet Discontinued 0.5 TAB PO Daily January 27, 2025 12:59pm April 01, 2025 6:40amStart: 12-16-2024 End: 39-02-8944jmxu 0.5 tablet by mouth onceTriamterene-Hydrochlorothiazid 37.5- 25 mg tablet Discontinued 0.5 TAB PO Once December 16, 2024 1:33pmJuly 2024 1:00pmStart: 32-40-3998wdidrmixknq-hydrochlorothiazide (Maxzide-25) 37.5-25 MG tablet 04/19/2024 ActiveStart: 10-13-2023 End: 02-79-4486slgn 0.5 tablet by mouth once dailyTriamterene-Hydrochlorothiazid 37.5-25 mg tablet Discontinued 0 .ROUTE .COMPLEX 45 3 April 19, 2024 3:16pm December 16, 2024 1:38pm TAKE 1/2 (ONE-HALF) OF A TABLET BY MOUTH DAILYStart: 03-13-2017 End: 37-89-3718qhps 0.5 tablet by mouth once dailyTriamterene-Hydrochlorothiazid 37.5-25 mg tablet Discontinued 0 PO Daily October 12, 2023 11:00pm October 13, 2023 1:09pm take 1/2 tablet by mouth daily End: 45-25-0406phgzrvagiup-hydrochlorothiazide (Maxzide) 75-50 MG tablet 1 (one) time each day at the same time. 06/23/2024 Discontinuedhydroxychloroquine sulfate 200 mg oral tablet (20 sources)Antimalarial, Antirheumatic AgentStart: 19-29-8858mfhx 1 tablet by mouth once dailyStart: 08-11-2024 End: 88-43-4167bdsf 1 tablet by mouth twice dailyHydroxychloroquine 200 mg tablet Discontinued 200 MG PO Twice daily August 11, 2024 12:00am November 10, 2024 2:52pmStart: 01-09-2022 End: 48-84-5089jjur 2 tablets by mouth once dailyhydrOXYchloroQUINE (PLAQUENIL) 200 mg tablet Indications: Primary osteoarthritis involving multiplejoints Take 2 tablets by mouth once daily. 180 tablet 3 05/17/2024 12/17/2024 Discontinued Start: 56-45-3753yljp 400 mg by mouth once dailyPlaquenil 400 mg, Oral, Daily, Refills(s) 0 Start Date: 12/19/20 Status: OrderedStart: 03-13-2017 End: 23-52-2670mryv 1 tablet by mouth once dailyHydroxychloroquine 200 mg Tablet Discontinued 200 MG PO Daily 30 0 April 01, 2017 11:00pm January 13, 2022 3:45pmtake 1 tablet by mouth twice dailyhydroxychloroquine (Plaquenil) 200 MG tablet take 1 tablet (200MG) by ORAL route 2 times every day Oral Active Plaquenil 200 mg 1 tablet twice a day ActiveComment on above:Take 400 mg by mouth once daily.3 ml insulin glargine 100 unt/ml pen injector (20 sources)Insulin AnalogStart: 02-10-2024 End: 14-28-6365Tltji: 10-21-2023 End: 89-71-6382Gbvxasj Glargine (Lantus Solostar U-100 Insulin) 100 unit/mL (3 mL) insulin pen Discontinued 34 UNIT SUBCUT Every evening October 21, 2023 2:50pm February 10, 2024 2:07pmStart: 10-20-2023 End: 82-66-4330Xtgwpsb Glargine (Lantus Solostar U-100 Insulin) 100 unit/mL (3 mL) insulin pen Discontinued 46 UNIT SUBCUT Daily at bedtime October 19, 2023 11:00pm October 20, 2023 1:21pmStart: 10-02-2022 End: 40-58-6625Acykayt Glargine (Lantus Solostar U-100 Insulin) 100 unit/mL (3 mL) insulin pen Discontinued 0 .ROUTE .COMPLEX 45 3 October 20, 2023 1:21pm October 21, 2023 2:51pm INJECT 46 UNITS SUBCUTANEOUSLY AT BEDTIMEStart: 10-02-2022 Lantus SoloStar 100 UNIT/ML pen 10/02/2022 ActiveStart: 01-13-2022 End: 78-57-9622czvrnr 21 [IU] by subcutaneous injection once daily at bedtime Insulin Glargine Discontinued 21 UNIT SUBCUT Daily at bedtime January 12, 2022 11:00pm January 24, 2022 2:09pmStart: 01-13-2022 End: 79-71-0071lutiga 21 [IU] by subcutaneous injection once daily at bedtime Insulin Glargine Discontinued 21 UNIT SUBCUT Daily at bedtime January 13, 2022 12:00am January 24, 2022 3:09pmStart: 86-23-0892Jhhozu SoloStar 300 UNIT/ML as directed Subcutaneous November, Not-TakingStart: 89-80-2938Jlepbt Solostar Pen 100 units/mL subcutaneous solution SubCutaneous, Daily, Refills(s) 0 Start Date: 10/26/20 Status: Ordered Repeat number: 1Start: 03-13-2017 End: 22-25-3310olvyqx 10 [IU] by subcutaneous injection once daily at bedtime Insulin Glargine (Lantus Solostar U-100 Insulin) 100 unit/mL (3 mL) Insulin Pen Discontinued 10 UNIT SUBCUT Daily at bedtime March 12, 2017 11:00pm April 02, 2017 8:58am Diabetesinsulin glargine (Lantus) 100 UNIT/ML injection Activeinsulin glargine (LANTUS) 100 unit/mL injection Inject subcutaneously. 21 units ActiveLantus SoloStar 100 UNIT/ML inject 46 units subcutaneously [...] sodium 0.1 mg oral tablet (20 sources)l-ThyroxineStart: 59-66-6355orkk 1 tablet by mouth in the morning Start: 04-01-2025 End: 42-71-9411uabp 1 tablet by mouth in the morningLevothyroxine 100 mcg tablet Discontinued 0 .ROUTE .COMPLEX 90 3 April 01, 2025 6:40am April 28, 2025 11:01am TAKE 1 TABLET BY MOUTH IN THE MORNING ON AN EMPTY STOMACH. Do not eat or drink for 30-45 MINUTES after takingStart: 10-21-2023 End: 34-68-8664ckrl 1 tablet by mouth once daily in the morningLevothyroxine 100 mcg tablet Discontinued 100 MCG PO Daily 90 3 April 19, 2024 3:18pm April 01, 2025 6:40am TAKE 1 TABLET BY MOUTH EVERY MORNING ON AN EMPTY STOMACH DO NOT EAT OR DRINK FOR 30-45 MIN AFTER TAKINGStart: 35-40-8238mzxc 1 tablet by mouth once dailySynthroid 100 mcg Tab 100 mcg = 1 tab(s), Oral, Daily, Refills(s) 0 Start Date: 10/26/20 Status: Ordered Repeat number: 1Start: 03-13-2017 End: 03-17-9880dxsw 1 tablet by mouth once dailyLevothyroxine 75 mcg Tablet Discontinued 75 MCG PO Daily at 0730 30 30 0 January 23, 2022 11:00pm October 21, 2023 2:14pmStart: 31-08-1247QJZCWGDPERXOE 88 mcg ORAL tablet 06/10/2011 Active End: 56-83-7243xbnl 1 tablet by mouth once dailylevothyroxine (Synthroid) 50 MCG tablet take 1 tablet by ORAL route every day Oral 06/23/2024 Discontinuedtake 1 tablet by mouth once daily in the morningLevothyroxine Sodium 100 mcg TAKE 1 TABLET BY MOUTH EVERY MORNING ON AN EMPTY STOMACH Activelisinopril 10 mg oral tablet (20 sources)Angiotensin Converting Enzyme InhibitorStart: 16-44-9554idwt 1 tablet by mouth once dailyStart: 04-01-2025 End: 33-92-4879ubbh 1 tablet by mouth once dailyLisinopril 10 mg tablet Discontinued 0 .ROUTE .COMPLEX 90 3 April 01, 2025 6:40am April 28, 2025 11:01am TAKE 1 TABLET BY MOUTH DAILYStart: 10-13-2023 End: 11-88-0678zqzi 1 tablet by mouth once dailyLisinopril 10 mg tablet Discontinued 0 .ROUTE .COMPLEX 90 1 October 13, 2023 1:08pm October 21, 2023 2 :51pm TAKE 1 TABLET BY MOUTH DAILYStart: 05-09-2011 End: 92-41-2262knul 1 tablet by mouth once dailyLisinopril 10 mg tablet Discontinued 10 MG PO Daily October 21, 2023 2:51pm April 19, 2024 3:16pm Start: 69-03-1782wxkb 10 mg by mouth once dailyZESTRIL 20MG TABLET Indications: Other specified idiopathic peripheral neuropathy Take 10 mg by mouth once daily. 0 02/20/2004 ActiveStart: 02-20-2004 End: 17-29-3834eztjkikhso (ZESTRIL, PRINIVIL) 20 mg tabletComment on above:Take one(1) tablet daily.Take 10 mg by mouth once daily. loperamide hydrochloride 2 mg oral tablet (20 sources)Opioid AgonistStart: 88-03-7876frpj 1 tablet by mouth once as needed Imodium A-D 2 MG 1 tablet as needed Orally PRN prn Sep, ActiveStart: 68-30-5002bwpm 1 tablet by mouth every six hoursImodium A-D 2 MG 1 tablet as needed Orally Four times a day Sep, Activemagnesium oxide 400 mg oral tablet (8 sources)Start: 53-67-6677yxpf 1 tablet by mouth once dailymetFORMIN hydrochloride 500 mg oral tablet (20 sources)BiguanideStart: 01-27-2025 End: 26-92-2237ocpv 1 tablet by mouth twice dailyStart: 12-19-2020 End: 29-72-1524kehx 1 tablet by mouth twice dailyMetformin 1,000 mg tablet Discontinued 1000 MG PO Twice daily October 20, 2023 11:00pm April 19, 2024 3:16pmStart: 04-02-2017 End: 58-09-6307cfva 2 tablets by mouth twice daily at mealtimeMetformin 500 mg Tablet Discontinued 1000 MG PO Twice daily with meals 120 30 0 January 23, 2022 11:00pm October 21, 2023 12:47pmStart: 04-02-2017 End: 93-20-5633jkbi 1000 mg by mouth twice daily at mealtimeMetformin Discontinued 1000 MG PO Twice daily with meals 120 30 January 23, 2022 11:00pm October 21, 2023 12:47pmStart: 05-09-2011 End: 12-05-5467tltj 1 tablet by mouth twice dailyMetformin 1,000 mg Tablet Discontinued 1000 MG PO Twice daily March 12, 2017 11:00pm April 02, 2017 8:58am DiabetesComment on above:Take 1,000 mg by mouth twice daily with meals. 24 hr mirabegron 25 mg extended release oral tablet (20 sources)beta3-Adrenergic Agonistmirabegron ER (Myrbetriq) 25 MG 24 hr tablet 1 (one) time each day at the same time ActiveMultiple Vitamin (Tab-A-Sivan) tablet (18 sources)Start: 10-42-0315vgab 1 tablet by mouth once dailyMultiple Vitamin (Tab-A-Sivan) tablet Take 1 tablet by mouth Daily 01/24/2022 ActiveStart: 20-45-1972bsqg 1 tablet by mouth in the morningMultiple Vitamin (Tab-A-Sivan) tablet Take 1 tablet by mouth in the morning. 01/24/2022 ActiveStart: 01-24-2022 take 1 tablet by mouth in the morningMultiple Vitamin (Tab-A-Sivan) tablet Take 1 tablet by mouth in the morning. 0 01/24/2022 ActiveMultivitamin preparation (20 sources)Multivitamin ActiveMultivitamin With Folic Acid (Thera) 400 mcg Tablet (20 sources)Start: 97-25-8673wigx 1 tablet by mouth once dailyStart: 01-24-2022 take 1 tablet by mouth once dailyMultivitamin With Folic Acid (Thera) 400 mcg Tablet Active 1 TAB PO Daily January 23, 2022 11:00pm Complies with drug therapyStart: 25-65-0416azek 1 tablet by mouth once dailyMultivitamin With Folic Acid (Thera) 400 mcg Tablet Active 1 TAB PO Daily January 24, 2022 12:00am Complies with drug therapyStart: 45-45-8733gqho 1 tablet by mouth once daily Start: 39-79-1897huet 1 tablet by mouth once dailyMultivitamin With Folic Acid (Thera) 400 mcg Tablet Active 1 TAB PO Daily January 23, 2022 11:00pmStart: 46-64-5724cuum 1 tablet by mouth once dailyMultivitamin With Folic Acid (Thera) 400 mcg Tablet Active 1 TAB PO Daily January 24, 2022 12:00amStart: 04-02-2017 End: 92-18-8658qohc 1 tablet by mouth once dailyMultivitamin With Folic Acid (Thera) 400 mcg Tablet Discontinued 1 TAB PO Daily April 01, 2017 11:00pm January 24, 2022 2:09pmStart: 04-02-2017 End: 43-28-5304ubyd 1 tablet by mouth once dailyMultivitamin With Folic Acid (Thera) 400 mcg Tablet Discontinued 1 TAB PO Daily April 01, 2017 11:00pm January 24, 2022 2:09pmStart: 04-02-2017 End: 61-88-0791dcys 1 tablet by mouth once dailyMultivitamin With Folic Acid (Thera) 400 mcg Tablet Discontinued 1 TAB PO Daily April 02, 2017 12:00am January 24, 2022 3:09pmMultivitamins and Minerals (4 sources)Start: 61-88-7656Ywubtxfbuiubo and Minerals Refill(s) 0 Start Date: 10/26/20 Status: Ordered Repeat number: 1Start: 04-71-3274Cqyehwptyvrno and Minerals Refill(s) 0 Start Date: 10/26/20 Status: Orderedoxybutynin chloride 5 mg oral tablet (20 sources)Cholinergic Muscarinic AntagonistStart: 51-09-9095yiwc 1 tablet by mouth once dailyStart: 49-47-6206jpqd 1 tablet by mouth three times daily as neededoxybutynin (Ditropan) 5 MG tablet See Instructions, can take 1 tab po up to TID PRN incontinence, #90 tab(s), Refills(s) 3, Pharmacy: [facility] #[id number], 178, cm, 02/11/23 11:43:00 EDT, Height/Length Dosing, 106.9, kg, 02/11/23 11:43:00 EDT, Weight Dosing 02/11/2023 ActiveStart: 72-26-2366yabp 1 tablet by mouth every twenty-four hoursDitropan XL 10 MG 1 tablet Orally Once a day Sep, Not-Takingpregabalin 150 mg oral capsule (20 sources)Start: 02-15-2025 End: 16-66-8905howh 1 capsule by mouth twice dailyStart: 06-09-2017 End: 14-63-7957gkht 1 capsule by mouth twice dailyPregabalin (Lyrica) 225 mg capsule Discontinued 225 MG PO Twice daily 180 90 1 October 13, 2023 1:11pm March 30, 2024 9:02am Chronic back pain Dorsalgia, unspecified Other chronic painStart: 04-02-2017 End: 22-99-1516suqp 3 capsules by mouth twice dailyPregabalin 75 mg Capsule Discontinued 225 MG PO Twice daily 180 30 0 January 23, 2022 11:00pm October 13, 2023 1:10pm Chronic back pain 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 Dorsalgia, unspecified Other chronic pain Other intervertebral disc degeneration, lumbar region Intervertebral disc disorders with radiculopathy, lumbar regionStart: 07-19-2011 End: 25-13-3491xlun 1 capsule by mouth twice dailyPregabalin (Lyrica) 225 mg Capsule Discontinued 225 MG PO Twice daily March 12, 2017 11:00pm April 02, 2017 8:59amComment on above:Take 225 mg by mouth twice daily.24 hr propranolol hydrochloride 60 mg extended release oral capsule (20 sources)beta-Adrenergic BlockerStart: 05-29-8077lpay 1 capsule by mouth once dailyStart: 04-01-2025 End: 77-66-3008tdmx 1 capsule by mouth once dailyPropranolol 60 mg capsule,extended release 24 hr Discontinued 0 .ROUTE .COMPLEX 90 3 April 01, 2025 6:40am April 28, 2025 11:01am TAKE 1 CAPSULE BY MOUTH DAILYStart: 40-83-6706rlgt 1 capsule by mouth every twenty-four hours in the morning propranolol LA (Inderal LA) 60 MG 24 hr capsule Take 60 mg by mouth in the morning. 07/12/2023 ActiveStart: 02-20-2004 End: 51-30-0596iknl 1 capsule by mouth once dailyPropranolol 60 mg capsule,extended release 24 hr Discontinued 60 MG PO Daily October 20, 2023 11:00pm April 19, 2024 3:16pm FreeTextSig: TAKE 1 CAPSULE BY MOUTH DAILY; Note: Source Status: Taking; Provider: Sakina Izaguirre ( )Comment on above:Take one(1) tablet daily.Triamterene-HCTZ 37.5 mg-25 mg (3 sources)take 0.5 tablet by mouth once dailyTriamterene-HCTZ 37.5 mg-25 mg TAKE 1/2 (ONE-HALF) OF A TABLET BY MOUTH ONCE DAILY for 90 Aytrus55 hr venlafaxine 75 mg extended release oral capsule (20 sources)Serotonin and Norepinephrine Reuptake InhibitorStart: 05-80-8205wyyd 1 capsule by mouth once dailyStart: 07-08-2024 End: 56-60-0058mdbw 1 capsule by mouth once daily at mealtimeVenlafaxine 75 mg capsule,extended release 24hr Discontinued 0 .ROUTE .COMPLEX 90 July 08, 2024 12:36pm December 16, 2024 1:38pm TAKE 1 CAPSULE BY MOUTH EVERY DAY WITH FOOD Start: 07-08-2024 End: 41-16-8655dlqm 1 capsule by mouth once daily at mealtimeVenlafaxine 75 mg capsule,extended release 24hr Discontinued 0 .ROUTE .COMPLEX July 08, 2024 1:36pm December 16, 2024 2:38pm TAKE 1 CAPSULE BY MOUTH EVERY DAY WITH FOOD Start: 07-15-2023 End: 15-80-4287terx 1 capsule by mouth every twenty-four hoursVenlafaxine 75 mg capsule,extended release 24hr Discontinued 75 MG PO Once December 16, 2024 1:34pm January 27, 2025 1:00pmStart: 01-01-2022 End: 57-75-9163yvyd 1 capsule by mouth once dailyVenlafaxine 75 mg Capsule,Extended Release 24hr Discontinued 75 MG PO Daily 30 30 0 January 231:00pm July 08, 2024 12:36pmComment on above:Take 75 mg by mouth once daily.Vitamin B Complex (20 sources)Vitamin B Complex Not-TakingVitamin B Complex ActiveVitamin B Complex oral capsule (4 sources)Start: 95-25-5913sucj 1 capsule by mouth once dailyVitamin B Complex oral capsule Oral, Daily, Refill(s) 0 Start Date: 10/26/20 Status: Ordered Repeat number: 1Start: 89-03-4948Mxbzsnz B Complex oral capsule Oral, Daily, Refill(s) 0 Start Date: 10/26/20 Status: Ordered Completed/Discontinued Medications MedicationDrug Class(es)DatesSig (Normalized)Sig (Original)acetaminophen 325 mg oral tablet (20 sources)Start: 01-15-2022 End: 68-25-2188kcmp 1-3 tablets by mouth every six hours as needed for pain Acetaminophen 325 mg Tablet Discontinued 650 MG PO Q6H as needed for Pain Scale 1 - 3 or fever 0 0 January 14, 2022 11:00pm January 24, 2022 2:09pmStart: 01-15-2022 End: 52-33-8011xhfx 650 mg by mouth every six hoursAcetaminophen Discontinued 650 MG PO Q6H 0 January 14, 2022 11:00pm January 24, 2022 2:09pmStart: 04-02-2017 End: 12-16-5460vkfc 1 tablet by mouth every four hours as needed for pain Acetaminophen 325 mg Tablet Discontinued 325 MG PO Q4H as needed for Pain 30 April 01, 201711:00pm January 13, 2022 3:42pmStart: 04-02-2017 End: 52-02-5514uvov 2 tablets by mouth every four hours as needed for pain Acetaminophen 325 mg Tablet Discontinued 650 MG PO Q4H as needed for Pain 30 0 April 01, 201711:00pm January 13, 2022 3:42pmStart: 04-02-2017 End: 15-88-9064ljfc 650 mg by mouth every four hoursAcetaminophen Discontinued 650 MG PO Q4H April 01, 2017 11:00pm January 13, 2022 3:42pmacetaminophen 325 mg / HYDROcodone bitartrate 5 mg oral tablet (20 sources)Opioid AgonistStart: 04-02-2017 End: 77-68-3584bhor 2 tablets by mouth every four hours as needed for pain Hydrocodone-Acetaminophen 5-325 mg Tablet Discontinued 2 TAB PO Q4H as needed for Severe Pain 30 April 01, 2017 11:00pm January 14, 2022 10:19am acetaminophen 325 mg / oxyCODONE hydrochloride 5 mg oral tablet (20 sources)Opioid AgonistStart: 02-05-2024 End: 94-44-0715Fdmtszrob-Acetaminophen (Percocet) 5-325 mg tablet Discontinued 1 TAB PO .COMPLEX 60 30 0 February 15, 2025 April 28, 2025 11:20am Other spondylosis with radiculopathy, lumbar region Other spondylosis with radiculopathy, lumbar region pain 1 tab orally one to two times a day as needed Start: 49-76-3478afpRICXWW-Acetaminophen 5-325 MG 1 tablet Orally one to two times a day as needed for 30 days Jul, ActiveStart: 39-48-2467lzkPJKJBW- Acetaminophen 5-325 MG 1 tablet Orally one to two times a day as needed for 30 days Apr, ActiveStart: 01-24-2022 End: 83-53-8981izvq 1 tablet by mouth every six hours as needed for pain Oxycodone-Acetaminophen 5-325 mg Tablet Discontinued 1 TAB PO Q6H as needed for Pain 7 7 0 January 24, 2022 February 05, 2024 8:06am Fracture of right wristStart: 01-14-2022 End: 23-65-0229cker 1 tablet by mouth once daily as needed for painOxycodone- Acetaminophen 5-325 mg tablet Discontinued 1 TAB PO Daily as needed for Pain January 13, 2022 11:00pm January 24, 2022 2:09pmStart: 15-34-5847qmug 1 tablet by mouth every six hoursacetaminophen-oxycodone 325 mg-5 mg oral tablet tab(s), Oral, q6hr, Refill(s) 0 Start Date: 10/26/20atus: Ordered Repeat number: 1 Start: 58-37-6459ikrk 1 tablet by mouth every six hoursacetaminophen-oxycodone 325 mg-5 mg oral tablet tab(s), Oral, q6hr, Refill(s) 0 Start Date: 10/26/20 Status: OrderedStart: 03-26-2017 End: 64-20-0488odjm 1 tablet by mouth every six hours as needed for pain Oxycodone-Acetaminophen 5-325 mg Tablet Discontinued 1 TAB PO Q6H as needed for Pain Scale 1 - 5 4014 0 March 25, 2017 11:00pm April 02, 2017 8:59am Start: 03-13-2017 End: 76-18-3084kqfk 1 tablet by mouth every four to six hours as needed for pain Oxycodone-Acetaminophen 5-325 mg Tablet Discontinued 1 TAB PO EVERY 4-6 HOURS as needed for Pain March 12, 2017 11:00pm April 02, 2017 8:59amStart: 50-75-1095KJJZRPETL-ACETAMINOPHEN 5-325 mg ORAL tablet as needed. 07/19/2011 ActiveComment on above:as needed.amoxicillin 500 mg oral capsule (20 sources)Penicillin-class AntibacterialStart: 01-12-2024 End: 86-20-8543lwhc 2 capsules by mouth every twelve hoursAmoxicillin 500 mg capsule Discontinued 1000 MG PO Every 12 hours 40 10 0 January 11, 2024 11:00pm February 05, 2024 7:16amStart: 01-12-2024 End: 62-03-8323sind 1000 mg by mouth every twelve hoursAmoxicillin Discontinued 1000 MG PO Every 12 hours 40 10 January 11, 2024 11:00pm February 05, 2024 7:16am calcium carbonate 1250 mg / cholecalciferol 200 unt oral tablet (20 sources)Vitamin DStart: 04-02-2017 End: 83-96-2003rgwn 1 tablet by mouth once daily in the morningCalcium Carbonate-Vitamin D3 (Oyster Shell Calcium-Vit D3) 500 mg-5 mcg (200 unit) Tablet Discontinued 1 TAB PO Every morning January 23, 2022 11:00pm December 16, 2024 1:37pmStart: 03-13-2017 End: 09-42-3272tyil 1 tablet by mouth once dailyCalcium Carbonate-Vitamin D3 (Calcium 600 + D(3)) 600 mg(1,500mg) -200 unit Tablet Discontinued 1 TAB PO daily March 12, 2017 11:00pm April 02, 2017 8:58am Osteoporosis preventionCalcium Carbonate-Vitamin D3 (Oyster Shell Calcium-Vit D3) 500 mg(1,250mg) -200 unit Tablet (20 sources)Start: 04-02-2017 End: 39-94-8279pvfv 1 tablet by mouth once daily in the morningCalcium Carbonate-Vitamin D3 (Oyster Shell Calcium-Vit D3) 500 mg(1,250mg) -200 unit Tablet Discontinued 1 TAB PO Every morning April 01, 2017 11:00pm January 24, 2022 2:09pmStart: 04-02-2017 End: 84-13-5769hvch 1 tablet by mouth once daily in the morningCalcium Carbonate-Vitamin D3 (Oyster Shell Calcium-Vit D3) 500 mg(1,250mg) -200 unit Tablet Discontinued 1 TAB PO Every morning April 02, 2017 12:00am January 24, 2022 3:09pmCalcium Carbonate-Vitamin D3 (Oyster Shell Calcium-Vit D3) 500 mg-5 mcg (200 unit) Tablet (20 sources)Start: 01-24-2022 End: 03-16-3238ugkr 1 tablet by mouth once daily in the morningCalcium Carbonate-Vitamin D3 (Oyster Shell Calcium-Vit D3) 500 mg-5 mcg (200 unit) Tablet Discontinued 1 TAB PO Every morning January 24, 2022 12:00am December 16, 2024 2:37pmStart: 99-34-9089pbnm 1 tablet by mouth once daily in the morningCalcium Carbonate-Vitamin D3 (Oyster Shell Calcium-Vit D3) 500 mg-5 mcg (200 unit) Tablet Active 1 TAB PO Every morning January 23, 2022 11:00pm Start: 94-99-7703qjqa 1 tablet by mouth once daily in the morningCalcium Carbonate-Vitamin D3 (Oyster Shell Calcium-Vit D3) 500 mg-5 mcg (200 unit) Tablet Active 1 TAB PO Every morning January 24, 2022 12:00amcitalopram 40 mg oral tablet (20 sources)Serotonin Reuptake InhibitorStart: 03-13-2017 End: 86-41-8829zhrb 1 tablet by mouth once daily in the morningCitalopram 40 mg Tablet Discontinued 40 MG PO Every morning April 01, 2017 11:00pm January 13, 2022 3:43pmStart: 02-20-2004 End: 93-43-8567VMDPTL 20MG TABLET Indications: Other specified idiopathic peripheral neuropathy Take one(1) tabletdaily. 0 02/20/2004 04/04/2022 Discontinued (Discontinued by another Health Care Provider)Comment on above:Take one(1) tablet daily.cyclobenzaprine hydrochloride 5 mg oral tablet (20 sources)Muscle RelaxantStart: 04-02-2017 End: 92-60-6749mslp 1 tablet by mouth every eight hours as needed for muscle spasmsCyclobenzaprine 5 mg Tablet Discontinued 5 MG PO Q8H as needed for Muscle Spasm 60 0 April 01, 2017 11:00pm January 13, 2022 3:43pmdicyclomine hydrochloride 20 mg oral tablet (20 sources)AnticholinergicStart: 04-05-2024 End: 99-68-0762vkql 1 tablet by mouth twice dailyDicyclomine 20 mg tablet Discontinued 20 MG PO Twice daily 60 1 April 04, 2024 11:00pm December 16, 2024 1:37pmStart: 66-10-2222vtnf 1 tablet by mouth twice daily as needed Dicyclomine HCl 20 MG 1 tablet Orally TWICE A DAY NEEDED Dec, Not-Takingdocusate sodium 100 mg oral capsule (20 sources)Start: 04-02-2017 End: 09-36-9245wavu 1 capsule by mouth twice dailyDocusate Sodium 100 mg Capsule Discontinued 100 MG PO Twice daily 60 0 April 01, 2017 11:00pmJuly 2021 3:43pmdocusate sodium 50 mg / sennosides, custodial 8.6 mg oral tablet (20 sources)Start: 03-26-2017 End: 00-67-1003jjhj 1 tablet by mouth twice dailySennosides-Docusate Sodium (Dok Plus) 8.6-50 mg Tablet Discontinued 1 TAB PO Twice daily 40 14 0 March 25, 2017 11:00pm April 02, 2017 8:59amdoxycycline hyclate 100 mg oral capsule (3 sources)Tetracycline-class DrugStart: 04-28-2025 End: 67-39-7647jeya 1 capsule by mouth twice dailyDoxycycline Hyclate 100 mg capsule Discontinued 100 MG PO Twice daily 20 10 0 April 27, 2025 11:00pm May 18, 2025 2:45pm72 hr fentaNYL 0.025 mg/hr transdermal system (20 sources)Opioid AgonistStart: 03-26-2017 End: 36-45-2286Xgqfwesy 25 mcg/hr Patch 72 Hour Discontinued 25 MCG TRANSDERML Every 72 hours 5 14 0 March 25, 2017 11:00pm April 02, 2017 8:58am ferrous sulfate 324 mg delayed release oral tablet (20 sources)Start: 03-26-2017 End: 15-26-0099hevm 1 tablet by mouth twice dailyFerrous Sulfate 324 mg (65 mg iron) Tablet,Delayed Release (Dr/Ec) Discontinued 324 MG PO Twice daily 60 0 April 01, 2017 11:00pm January 13, 2022 3:44pmfurosemide 20 mg oral tablet (20 sources)Loop DiureticStart: 01-13-2022 End: 35-93-1734jnfr 10 mg by mouth once dailyFurosemide 20 mg tablet Discontinued 10 MG PO Daily at 0800 January 13, 2022 3:48pm January 15, 2022 11:05am Start: 01-13-2022 End: 23-66-8747miht 10 mg by mouth once dailyFurosemide Discontinued 10 MG PO Daily at 0800 January 13, 2022 3:48pm January 15, 2022 11:05amStart: 02-20-2004 End: 08-76-3327kqax 1 tablet by mouth once dailyFurosemide 20 mg Tablet Discontinued 20 MG PO Daily at 0800 30 0 April 01, 2017 11:00pm January 13, 2022 3:48pmComment on above:Take one(1) tablet daily.Insulin Aspart U-100 (Novolog Flexpen U-100 Insulin) 100 unit/mL (3 mL) Insulin Pen (20 sources)Start: 01-15-2022 End: 35-70-7386Necrsii Aspart U-100 (Novolog Flexpen U-100 Insulin) 100 unit/mL (3 mL) Insulin Pen Discontinued 0 UNITS SUBCUT 3X/Day with meals and bedtime 0 January 14, 2022 11:00pm January 15, 2022 4:37pmStart: 01-15-2022 End: 82-79-2016Ckxipoj Aspart U-100 (Novolog Flexpen U-100 Insulin) 100 unit/mL (3 mL) Insulin Pen Discontinued 0 UNITS SUBCUT 3X/Day with meals and bedtime 0 January 15, 2022 12:00am January 15, 2022 5:37pmInsulin Aspart U-100 (Novolog Flexpen U-100 Insulin) 100 unit/mL (3 mL) insulin pen (20 sources)Start: 01-15-2022 End: 82-86-5169Emmfsda Aspart U-100 (Novolog Flexpen U-100 Insulin) 100 unit/mL (3 mL) insulin pen Discontinued 0 UNITS SUBCUT 3X/Day with meals and bedtime January 15, 2022 5:37pm January 24, 2022 3:09pm Please contact the information source for Protocol details.Start: 01-15-2022 End: 93-05-5598Ilwroxv Aspart U-100 (Novolog Flexpen U-100 Insulin) 100 unit/mL (3 mL) insulin pen Discontinued 0 UNITS SUBCUT 3X/Day with meals and bedtime January 15, 2022 4:37pm January 24, 2022 2:09pm Please contact the information source for Protocol details.Start: 01-15-2022 End: 25-05-1400Bzkfdio Aspart U-100 (Novolog Flexpen U-100 Insulin) 100 unit/mL (3 mL) insulin pen Discontinued 0 UNITS SUBCUT 3X/Day with meals and bedtime January 15, 2022 4:37pm January 24, 2022 2:09pmStart: 01-15-2022 End: 56-68-3075Hkapsip Aspart U-100 (Novolog Flexpen U-100 Insulin) 100 unit/mL (3 mL) insulin pen Discontinued 0 UNITS SUBCUT 3X/Day with meals and bedtime January 15, 2022 5:37pm January 24, 2022 3:09pm3 ml insulin aspart, human 100 unt/ml pen injector (16 sources)Insulin AnalogStart: 01-15-2022 End: 37-62-4844Vxydcxv Aspart U-100 (Novolog Flexpen U-100 Insulin) 100 [...] mg/dL Dose/Route: 16 unit January 15, 2022 4:37pm January 24, 2022 2:09pm Please contact the information source for Protocol details.Start: 01-15-2022 End: 41-44-7534Nicoixo Aspart U-100 (Novolog Flexpen U-100 Insulin) 100 unit/mL (3 mL) Insulin Pen Discontinued 0 UNITS SUBCUT 3X/Day with meals and bedtime 0 0 January 14, 2022 11:00pm January 15, 2022 4:37pm3 ml insulin detemir 100 unt/ml pen injector (20 sources)Insulin AnalogStart: 01-24-2022 End: 85-24-2319Hfmhdxd Detemir U-100 (Levemir Flextouch U-100 Insuln) 100 unit/mL (3 mL) Insulin Pen Discontinued 25 UNITS SUBCUT Daily at bedtime 7.5 30 0 January 23, 2022 11:00pm October 21, 2023 2:11pmStart: 04-02-2017 End: 68-28-7105Xzrrvmh Detemir U-100 (Levemir Flextouch U100 Insulin) 100 unit/mL (3 mL) Insulin Pen Discontinued 20 UNIT SUBCUT Daily at bedtime 6 30 0 April 01, 2017 11:00pm April 30, 2017 11:00pm May 01, 2017 11:03pmInsulin Glargine 100 unit/mL Cartridge (14 sources)Start: 01-13-2022 End: 59-73-8912zyttor 21 [IU] by subcutaneous injection once daily at bedtime Insulin Glargine 100 unit/mL Cartridge Discontinued 21 UNIT SUBCUT Daily at bedtime January 13, 2022 12:00am January 24, 2022 3:09pmStart: 01-13-2022 End: 17-25-0736hzfxtw 21 [IU] by subcutaneous injection once daily at bedtime Insulin Glargine 100 unit/mL Cartridge Discontinued 21 UNIT SUBCUT Daily at bedtime January 12, 2022 11:00pm January 24, 2022 2:09pmlevoFLOXacin 750 mg oral tablet (20 sources)Quinolone AntimicrobialStart: 01-15-2022 End: 05-16-4211zfmg 1 tablet by mouth once dailyLevofloxacin 750 mg tablet Discontinued 750 MG PO Daily 1 1 0 January 14, 2022 11:00pm January 24, 2022 2:09pm next dose 7/7lidocaine 0.05 mg/mg medicated patch (20 sources)Antiarrhythmic, Amide Local AnestheticStart: 04-02-2017 End: 20-10-1785Obnsmcbga 5 % Adhesive Patch,Medicated Discontinued 2 EACH TOPICAL Daily 20 0 April 01, 2017 11:00pm January 13, 2022 3:45pmmelatonin 5 mg oral tablet (20 sources)Start: 01-15-2022 End: 69-59-9255owby 2 tablets by mouth once daily at bedtimeMelatonin 5 mg Tablet Discontinued 10 MG PO Daily at bedtime 60 30 0 January 23, 2022 11:00pm October 21, 2023 2:12pmStart: 01-15-2022 End: 27-15-2692zees 10 mg by mouth once daily at bedtimeMelatonin Discontinued 10 MG PO Daily at bedtime 60 30 January 23, 2022 11:00pm October 21, 2023 2:12pm End: 36-42-6031UKBRRSLQF ORAL Take by mouth. 0 02/07/2023 DiscontinuedMelatonin 10 MG as directed Orally ActiveMELATONIN ORAL Take by mouth. 0 ActiveComment on above:Take by mouth.Multivitamin (Multiple Vitamins) Tablet (20 sources)Start: 03-13-2017 End: 25-89-3748nzre 1 tablet by mouth once dailyMultivitamin (Multiple Vitamins) Tablet Discontinued 1 TAB PO Daily March 12, 2017 11:00pm April 02, 2017 8:59am SupplementStart: 03-13-2017 End: 74-31-6755zogd 1 tablet by mouth once dailyMultivitamin (Multiple Vitamins) Tablet Discontinued 1 TAB PO Daily March 12, 2017 11:00pm April 02, 2017 8:59amStart: 03-13-2017 End: 12-15-0343kezd 1 tablet by mouth once dailyMultivitamin (Multiple Vitamins) Tablet Discontinued 1 TAB PO Daily March 13, 2017 12:00am April 02, 2017 9:59amnitrofurantoin, macrocrystals 25 mg / nitrofurantoin, monohydrate 75 mg oral capsule (20 sources)Nitrofuran AntibacterialStart: 05-11-2024 End: 13-97-0182ibiz 1 capsule by mouth twice daily at mealtimeNitrofurantoin Monohyd/M-Cryst (Macrobid) 100 mg capsule Discontinued 100 MG PO Twice daily 14 7 0 May 10, 2024 11:00pm August 11, 2024 1:12pm must administer with a meal/foodStart: 10-20-2023 End: 38-75-2754aelw 1 capsule by mouth twice daily at mealtimeNitrofurantoin Monohyd/M-Cryst (Macrobid) 100 mg capsule Discontinued 100 MG PO Twice daily 14 0 October 20, 2023 3:08pm January 12, 2024 1:24pm must administer with a meal/food predniSONE 20 mg oral tablet (8 sources)Start: 04-28-2025 End: 36-56-9066ryqj 3 tablets by mouth once daily at mealtime, then take 2 tablets by mouth once daily, then take 1 tablet by mouth once daily at mealtime Prednisone 20 mg tablet Discontinued 0 PO .with food or milk 18 9 0 April 27, 2025 11:00pm May 18, 2025 2:46pm take 3 tablets a day x3 days, 2 tabs a day x3 days and then 1 tab a day x3 days orally WITH FOOD OR MILK;Start: 04-26-2025 End: 38-16-5068eaxc 1 tablet by mouth twice dailyPrednisone 20 mg tablet Discontinued 20 MG PO Twice daily 10 5 0 April 25, 2025 11:00pm May 18, 2025 2:46pmSennosides (Senna Lax) 8.6 mg Tablet (20 sources)Start: 04-02-2017 End: 41-42-1096Slvlzdwmkf (Senna Lax) 8.6 mg Tablet Discontinued 2 EACH PO DAILY@12 as needed for If no BM in 2 days April 02, 2017 12:00am January 13, 2022 4:47pmStart: 04-02-2017 End: 24-96-4293Watfgkncfc (Senna Lax) 8.6 mg Tablet Discontinued 2 EACH PO DAILY@12 as needed for If no BM in 2 days April 01, 2017 11:00pm January 13, 2022 3:47pmStart: 04-02-2017 End: 01-47-5422Mjsyraokio (Senna Lax) 8.6 mg Tablet Discontinued 2 EACH PO DAILY@12 April 01, 2017 11:00pm January 13, 2022 3:47pmStart: 04-02-2017 End: 21-45-0346Mdgzbsewox (Senna Lax) 8.6 mg Tablet Discontinued 2 EACH PO DAILY@12 April 02, 2017 12:00am January 13, 2022 4:47pmsennosides, custodial 8.6 mg oral tablet (8 sources)Start: 04-02-2017 End: 57-11-1958Lpkqeklcuq (Senna Lax) 8.6 mg Tablet Discontinued 2 EACH PO DAILY@12 as needed for If no BM in 2 days 30 0 April 01, 2017 11:00pm January 13, 2022 3:47pmsulfamethoxazole 800 mg / trimethoprim 160 mg oral tablet (20 sources)Dihydrofolate Reductase Inhibitor Antibacterial, Sulfonamide AntimicrobialStart: 03-26-2017 End: 76-78-5986ufof 1 tablet by mouth twice dailySulfamethoxazole-Trimethoprim 800-160 mg Tablet Discontinued 1 TAB PO Twice daily 6 0 April 01, 2017 11:00pm January 13, 2022 3:47pmtraMADol hydrochloride 50 mg oral tablet (20 sources)Opioid AgonistStart: 01-15-2022 End: 90-29-7727acgd 1 tablet by mouth every eight hours as needed for pain Tramadol 50 mg Tablet Discontinued 50 MG PO Q8H as needed for Pain Scale 4 - 7 0 0 January 14, 2022 11:00pm January 15, 2022 4:36pmtriamcinolone acetonide 40 mg/ml injectable suspension (20 sources)CorticosteroidStart: 22-30-5194Oxatmcw-40 Oct, 20 mgStart: 71-55-8917Pazyvxv -40 mg Apr, 40 mgTRIAMTERENE-HCTZ 37.5-25 TB (2 sources)Start: 02-20-2004 End: 16-57-4082VBMCSKFXRSF-HCTZ 37.5-25 TB Indications: Other specified idiopathic peripheral neuropathy Take one(1) tablet daily. 0 02/20/2004 04/04/2022 Discontinued (Discontinued by another Health Care Provider)Start: 69-82-0115YMUUTUJGNXJ-HCTZ 37.5-25 TB Indications: Other specified idiopathic peripheral neuropathy Take one(1) tablet daily. 0 02/20/2004 ActiveComment on above:Take one(1) tablet daily.trospium chloride 20 mg oral tablet (20 sources)Cholinergic Muscarinic AntagonistStart: 02-24-2024 End: 43-37-7285ftrw 1 tablet by mouth twice dailyTrospium 20 mg tablet Discontinued 20 MG PO Twice daily March 07, 2024 11:00pm November 10, 2024 2 :54pmzolpidem tartrate 5 mg oral tablet (20 sources)gamma-Aminobutyric Acid-ergic AgonistStart: 10-16-2023 End: 69-24-4961vsii 1 tablet by mouth once daily at bedtimeZolpidem 5 mg tablet Discontinued 5 MG PO Daily at bedtime 90 90 1 October 16, 2023 11:43am April 142023 12:01pm Insomnia Insomnia, unspecifiedStart: 10-53-0324idtp 1 tablet by mouth once daily at bedtimeAmbien 5 MG 1 tablet Orally qd hs Sep, ActiveStart: 20-41-8625obpe 1 tablet by mouth once daily at bedtime as needed for sleepAmbien 10 mg Tab 10 mg = 1 tab(s), Oral, Once a day (at bedtime), PRN for sleep, Refills(s) 0 StartDate: 10/26/20 Status: Ordered Repeat number: 1 Start: 76-38-9686pshb 0.5 tablet by mouth once daily at bedtime as neededAmbien 10 mg 1/2 tablet at bedtime as needed Orally Once a day for 90 days Apr, ActiveStart: 03-13-2017 End: 37-77-9689jpdy 1 tablet by mouth once daily at bedtime as needed for sleep Zolpidem (Ambien) 5 mg tablet Discontinued 5 MG PO Daily at bedtime as needed for Sleep January 13, 2022 3:48pm January 15, 2022 11:05amComment on above:Take 5 mg by mouth. Problems Active Problems Problem ClassificationProblemDateDocumented DateEpisodic/ChronicAcquired foot deformities (20 sources)Acquired hammer toe of right foot; Translations: [Other hammer toe(s) (acquired), right foot]Onset: 12-27-2021 Resolved: 74-45-0711KorpgevPfeckfep foot deformities (20 sources)Acquired hammer toe of left foot; Translations: [Other hammer toe(s) (acquired), left foot]Onset: 12-27-2021 Resolved: 18-70-5176CsrdkysXqnvd and unspecified renal failure (20 sources)Injury of kidney; Translations: [Acute kidney failure, unspecified] 38-94-2626BmvagzffMjysn bronchitis (7 sources)Bronchiolitis; Translations: [Acute bronchiolitis, unspecified] 95-50-9925ZuxgmvjqBufqmejocetlji/social admission (20 sources)Other reduced mobility; Translations: [Impaired mobility and activities of daily living]78-69-8794OoqjcnreVqunmou dysrhythmias (14 sources)Premature beats; Translations: [Other premature depolarization] 29-03-4489PaxgbvuEhgpxyd kidney disease (20 sources)Chronic kidney disease stage 3B ; Translations: [Stage 3b chronic kidney disease]03-76-2303HqabsxzRrsipvdwup and other anemia (20 sources)Anemia; Translations: [Anemia, unspecified]12-79-7809Ntlgmlrl Diabetes mellitus with complications (20 sources)Type II diabetes mellitus uncontrolled; Translations: [Type 2 diabetes mellitus with hyperglycemia]Onset: 07-14-2009 Resolved: 59-30-6780UkhrkhlVpmxfkaj mellitus without complication (20 sources)Diabetes mellitus; Translations: [Type 2 diabetes mellitus without complications]Onset: 240380-69-2672WqxczqzMtswpewv of white blood cells (20 sources)Lymphocytosis; Translations: [Lymphocytosis (symptomatic)]Onset: 04-04-2021 Resolved: 72-61-3461AygvugyJaiiriinz of lipid metabolism (20 sources)Hyperlipidemia; Translations: [Hyperlipidemia, unspecified]Onset: 04-04-2021 Resolved: 68-05-5057LpmijalYmjlcyrtetyxzr and diverticulitis (20 sources)Diverticulitis; Translations: [Diverticulitis of intestine, part unspecified, without perforation or abscess without bleeding]Onset: 04-04-2021 Resolved: 38-91-0179WtueljyN Codes: Fall (20 sources)Fall; Translations: [Unspecified fall, initial encounter]01-14-2022 EpisodicEssential hypertension (20 sources)Hypertensive disorder; Translations: [Essential (primary) hypertension]Onset: 07-14-2009 Resolved: 09-57-2185FyizzycClxbb and electrolyte disorders (18 sources)Hyperkalemia; Translations: [Hyperkalemia]98-01-2462GfuwehzsLauqlanq of upper limb (20 sources)Fracture of unspecified carpal bone, right wrist, initial encounter for closed fracture; Translations: [Fracture at wrist and/or hand level]Onset: 02-06-2022 Resolved: 41-22-1066AceazywlNxsknjgzpwxhf symptoms and ill-defined conditions (20 sources)Mixed incontinence; Translations: [Genuine stress incontinence] Onset: 83-73-6559OsxbpgsOafbimpnoaqbt symptoms and ill-defined conditions (4 sources)Increased frequency of urination; Translations: [Poor stream of urine]95-38-0098KnnxgfsdGyitwwca; including migraine (20 sources)Migraine; Translations: [Migraine, unspecified, not intractable, without status migrainosus]ChronicHeadache; including migraine (4 sources)Crfudock10-35-3842ZntteovrOearedirfesu with complications and secondary hypertension (17 sources)Chronic kidney disease due to hypertension; Translations: [Hypertensive chronic 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 4 chronic kidney disease, or unspecified chronic kidney disease]80-44-8684ToryofbEqtetmdkmlguc and screening for infectious disease (3 sources)Encounter for immunization; Translations: [Flu vaccine need Z23] Onset: 04-04-2021 Resolved: 19-03-3374QmnxdxdkJejujqhda (20 sources)Chronic lymphoid leukemia, disease; Translations: [Chronic lymphocytic leukemia of B-cell type not having achieved remission]Onset: 32-97-0275MkxejbzOtmhsneolzhwu (1 source)Axillary lymphadenopathy; Translations: [Localized enlarged lymph nodes]EpisodicMalaise and fatigue (6 sources)Fatigue; Translations: [Other fatigue]74-80-6699GrwlxslwBktutwxdma disorders (18 sources)Atrophy of vagina; Translations: [Postmenopausal atrophic vaginitis] Onset: 658811-94-3076WhpapxfOhdbzstszjadn mental health disorders (17 sources)Chronic insomnia; Translations: [Psychophysiologic insomnia] 42-45-7272LgxcciiZkti disorders (20 sources)Major depressive disorder, single episode, unspecified; Translations: [Depression]Onset: 04-04-2021 Resolved: 07-87-9910WbhykkuZksqqen (20 sources)Onychomycosis; Translations: [Tinea unguium]Onset: 12-08-2022 10-10-5372XmbtsqajSrwudnjyrmni breast conditions (1 source)Breast signs and symptoms; Translations: [Other signs and symptoms in breast]EpisodicNutritional deficiencies (20 sources)Vitamin D deficiency; Translations: [Vitamin D deficiency, unspecified]54-13-4713KbozayoLwryesurrggqxm (9 sources)Arthritis; Translations: [Osteoarthritis of right hip joint]Onset: 861385-81-0026KndgldkRsokd acquired deformities (20 sources)Deformity of foot; Translations: [Unspecified acquired deformity of unspecified lower leg]03-78-3416EgvbwjyjLviuz aftercare (6 sources)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 coordinator (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 therapy; Translations: [Long-term (current) use of other medications]Onset: 02-06-2022 Resolved: 15-69-7202ToccjyjgPpoky aftercare (20 sources)Long-term current use of drug therapy; Translations: [Other chcf (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 therapy]29-98-5350XjsiwumeQydua aftercare (2 sources)H/O: high risk medication; Translations: [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 coordinator (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 therapy]71-10-2420FoncasmbGwdeb aftercare (1 source)Drug therapy finding; Translations: [Other chcf (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 therapy]55-76-4260HihkkgifXncay aftercare (1 source)FCI (current) use of insulin; Translations: [Type 2 diabetes mellitus without complication, with long-term current use of insulin (HCC)] Onset: 64-23-2095AgizttihExyvn and unspecified benign neoplasm (20 sources)History of polyp of colon; Translations: [Personal history of colonic polyps]EpisodicOther and unspecified benign neoplasm (1 source)Benign lipomatous neoplasm, unspecifiedEpisodicOther and unspecified benign neoplasm (1 source)Senile angioma; Translations: [Hemangioma of skin and subcutaneous tissue]51-47-8065ToxzvyhpXmmqh and unspecified benign neoplasm (1 source)Lipoma of right upper limb; Translations: [Benign lipomatous neoplasm of skin and subcutaneous tissue of right arm]06-96-6480PgxyfwwdZnoks circulatory disease (20 sources)Low blood pressure; Translations: [Hypotension, unspecified] 89-70-9036HotkeulkYlsdu circulatory disease (1 source)Hypotension, unspecified; Translations: [Hypotension, unspecified] 68-67-0613DvctaqbkKxanw connective tissue disease (18 sources)Artificial knee joint present; Translations: [Presence of unspecified artificial knee joint]Onset: 200464-44-3104CjtbzguEglwx connective tissue disease (20 sources)Fibromyalgia; Translations: [Fibromyalgia]77-57-1439GwltgofrSxsdt connective tissue disease (10 sources)Rheumatism, unspecified; Translations: [Rheumatism, unspecified and fibrositis]Onset: 04-04-2021 Resolved: 58-24-3080RrottvfnZlgwc connective tissue disease (20 sources)Rheumatism; Translations: [Rheumatism, unspecified]10-26-2020 EpisodicOther connective tissue disease (1 source)Pain in both feet; Translations: [Pain in right foot]08-28-2023 EpisodicOther connective tissue disease (1 source)Fibromyalgia; Translations: [Fibromyalgia]Onset: 23-65-7959Wrdlkjtv Other diseases of bladder and urethra (20 sources)Bladder irritability; Translations: [Other specified disorders of bladder]56-85-3985UtjadyfXtczo diseases of bladder and urethra (20 sources)Spasm of bladder; Translations: [Other specified disorders of bladder]ChronicOther diseases of bladder and urethra (2 sources)Other specified disorders of bladder; Translations: [Bladder instability N32.89]Onset: 04-04-2021 Resolved: 04-01-1811ClufvyfFiuva diseases of bladder and urethra (2 sources)Detrusor overactivity; Translations: [Overactive bladder]Onset: 44-98-1194UxoqyreModly diseases of bladder and urethra (20 sources)Overactive bladder; Translations: [Overactive bladder]Onset: 656190-12-9619GpivhiqIlqud ear and sense organ disorders (1 source)Otalgia, right ear; Translations: [Otalgia, unspecified]EpisodicOther gastrointestinal disorders (20 sources)Irritable bowel syndrome; Translations: [Irritable bowel syndrome without diarrhea]ChronicOther gastrointestinal disorders (20 sources)Irritable bowel syndrome with diarrhea; Translations: [Irritable bowel syndrome with diarrhea]82-31-5815QflhiadKakxf gastrointestinal disorders (4 sources)Irritable bowel syndrome without diarrheaOnset: 09-13-2021 Resolved: 92-71-0328YbrzpooIhksr gastrointestinal disorders (9 sources)Irritable bowel syndrome with diarrhea; Translations: [Irritable bowel syndrome]Onset: 12-17-2021 Resolved: 42-17-3450FddnbdfIrfzz gastrointestinal disorders (20 sources)Constipation; Translations: [Constipation, unspecified]Onset: 229442-53-4308GzjrrbgeDffpw gastrointestinal disorders (20 sources)Dysphagia; Translations: [Dysphagia, unspecified]EpisodicOther gastrointestinal disorders (19 sources)Diarrhea; Translations: [Diarrhea, unspecified]Onset: 06-23-2024 41-15-8734CewlbndcVssff injuries and conditions due to external causes (3 sources)Other injury of unspecified body region, initial encounter; Translations: [Abrasion or friction burn of other, multiple, and unspecified sites, without mention of infection]Onset: 02-06-2022 Resolved: 40-94-8189RrzlggfoEjumf injuries and conditions due to external causes (20 sources)Minor head injury; Translations: [Unspecified injury of head, initial encounter]21-52-4020FojyyajkUrnpf injuries and conditions due to external causes (20 sources)Abrasion; Translations: [Other injury of unspecified body region, initial encounter]82-28-6081LztywtbjBcpmd injuries and conditions due to external causes (3 sources)Unspecified injury of head, initial encounter; Translations: [Head injury, unspecified]52-34-7297AqqjszrnSytzh liver diseases (20 sources)Steatosis of liver; Translations: [Fatty (change of) liver, not elsewhere classified]ChronicOther liver diseases (1 source)Abnormal levels of other serum enzymesEpisodicOther lower respiratory disease (20 sources)Solitary nodule of lung; Translations: [Solitary pulmonary nodule] EpisodicOther lower respiratory disease (1 source)Rib pain; Translations: [Pleurodynia]EpisodicOther lower respiratory disease (4 sources)Nodule of qdlm38-76-3702FivdqhwpLpgcx lower respiratory disease (1 source)PleurodyniaEpisodicOther nervous system disorders (20 sources)Neuropathy; Translations: [Polyneuropathy, unspecified]10-26-2020 ChronicOther nervous system disorders (20 sources)Polyneuropathy, unspecified; Translations: [Mononeuritis of unspecified site]Onset: 04-04-2021 Resolved: 13-01-1665NkxbmhvSfskv nervous system disorders (20 sources)Peripheral nerve disease ; Translations: [Polyneuropathy, unspecified]09-70-7390SbscvveRjckx nervous system disorders (2 sources)Disturbance of attention; Translations: [Attention and concentration deficit]18-46-5812MthmvgjIzpcf nervous system disorders (2 sources)Chronic pain; Translations: [Other chronic pain]16-66-7123Plndzlc Other nervous system disorders (20 sources)Nervous system symptoms; Translations: [Other abnormalities of gait and mobility]EpisodicOther nervous system disorders (2 sources)Other abnormalities of gait and mobilityOnset: 02-06-2022 Resolved: 71-14-8954QfwkpqhoFonbs nervous system disorders (20 sources)Postoperative pain ; Translations: [Other acute postprocedural pain] 54-56-0648HypwyddqKzzjd nervous system disorders (6 sources)Impaired cognition; Translations: [Other symptoms and signs involving cognitive functions and awareness]17-33-3138MjwfvtokVzwgq nervous system disorders (2 sources)Word finding difficulty ; Translations: [Other speech disturbances] 82-27-5990XwkxmggmItwoj non-traumatic joint disorders (4 sources)Sacroiliac wcpieyct60-10-5358TswhgyreTfsjh non-traumatic joint disorders (1 source)Pain in unspecified hipEpisodicOther non-traumatic joint disorders (1 source)Pain in right hipEpisodicOther non-traumatic joint disorders (17 sources)Hip pain; Translations: [Pain in left hip]03-06-0445ZevedcudPwhwz non-traumatic joint disorders (12 sources)Pain in left knee; Translations: [Pain in joint, lower leg] 79-53-0183HwqkxgpqFnjpi nutritional; endocrine; and metabolic disorders (20 sources)Obese class I; Translations: [Body mass index (BMI) 31.0-31.9, adult]ChronicOther nutritional; endocrine; and metabolic disorders (1 source)Body mass index (BMI) 31.0-31.9, adultChronicOther nutritional; endocrine; and metabolic disorders (15 sources)Body mass index 30+ - obesity; Translations: [Body mass index (BMI) 32.0-32.9, adult]60-73-2864KqejdszWozms nutritional; endocrine; and metabolic disorders (2 sources)Body mass index (BMI) 32.0-32.9, adult; Translations: [Body Mass Index 32.0-32.9, adult]58-61-1352BbgqtsuYfubx nutritional; endocrine; and metabolic disorders (2 sources)Abnormal weight loss; Translations: [Weight loss R63.4]Onset: 04-04-2021 Resolved: 53-62-2813XntxtfnrXkqik screening for suspected conditions (not mental disorders or infectious disease) (20 sources)Encounter for screening mammogram for malignant neoplasm of breast; Translations: [Other specified abnormal findings of blood chemistry]Onset: 04-04-2021 Resolved: 58-01-2770PtzrbazgVzmmk skin disorders (10 sources)Hidradenitis; Translations: [Hidradenitis suppurativa]02-15-2025 EpisodicComment on above:right axillaOther skin disorders (1 source)Seborrheic keratosis; Translations: [Other seborrheic keratosis] 74-72-4558QdiprwzvKmuid skin disorders (1 source)Actinic keratosis; Translations: [Actinic keratosis]10-71-1951Qqgxjbay Other skin disorders (1 source)Lentiginosis; Translations: [Other melanin hyperpigmentation] 53-86-4539GpzhrutqOozboq media and related conditions (20 sources)Otitis media of right ear; Translations: [Otitis media, unspecified, right ear]95-44-1537DybndgcrKxekkgyv codes; unclassified (7 sources)Sedative, hypnotic AND/OR anxiolytic-induced sleep disorder; Translations: [Other sleep disorders]08-40-9744RxfubcvDseyqpct codes; unclassified (10 sources)Other sleep disorders; Translations: [Other sleep disturbances] 46-54-7748QwbgynfAxxpwhzd codes; unclassified (20 sources)Insomnia; Translations: [Insomnia, unspecified]51-88-4010Blafirfh Residual codes; unclassified (12 sources)Insomnia, unspecified; Translations: [Insomnia, unspecified]Onset: 04-04-2021 Resolved: 34-47-6336XusqvcdrJqxtwoka codes; unclassified (5 sources)Edema, unspecified; Translations: [Peripheral edema R60.9]Onset: 04-04-2021 Resolved: 52-60-0263HemtkfgsFaawfpri codes; unclassified (20 sources)History of operative procedure on lumbosacral spinal structure; Translations: [Other specified postprocedural states]43-79-1428OdqhvsteEvzbuzob codes; unclassified (20 sources)Peripheral edema; Translations: [Localized edema]68-83-3412Wpjiwiah Residual codes; unclassified (4 sources)Localized edema; Translations: [Edema]09-46-8797QbbbwrziTzwwxlvn codes; unclassified (17 sources)Memory impairment; Translations: [Other amnesia]03-35-5391Zpogzcyz Residual codes; unclassified (4 sources)Other amnesia; Translations: [Memory loss]42-94-0537FhzurcfrCkxjoaly codes; unclassified (2 sources)Amnesia; Translations: [Other amnesia]35-56-5613JngspktbAcnfcedg codes; unclassified (2 sources)Family history of dementia; Translations: [Family history of other mental and behavioral disorders]61-27-3331OukyukjpJstylkdjrj arthritis and related disease (18 sources)Rheumatoid arthritis; Translations: [Rheumatoid arthritis, unspecified]Onset: 439593-84-5686MnicvytFrqrhdrfwt (except in labor) (20 sources)Sepsis; Translations: [Sepsis, unspecified organism]01-13-2022 EpisodicSpondylosis; intervertebral disc disorders; other back problems (20 sources)Lumbosacral spondylosis without myelopathy; Translations: [Other spondylosis with radiculopathy, lumbar region]Onset: 06-18-2021 Resolved: 59-47-9320IjrgeuyGehogzrzmlz; intervertebral disc disorders; other back problems (20 sources)Low back pain; Translations: [Cervicalgia]Onset: 04-04-2021 Resolved: 21-10-3250IgeltomjHnwnnfqlynp injury; contusion (20 sources)Hematoma of right lower leg; Translations: [Contusion of right lower leg, initial encounter]50-56-1367EnxlcjhvAmvbggp disorders (20 sources)Hypothyroidism; Translations: [Hypothyroidism, unspecified]Onset: 04-04-2021 Resolved: 94-44-8813DtuzcbcIgabyeqgnlga (1 source)Cough, unspecified; Translations: [Cough, unspecified]Onset: 04-26-2025 Past or Other Problems Problem ClassificationProblemDateDocumented DateEpisodic/ChronicDeficiency and other anemia (1 source)Anemia, unspecifiedOnset: 10-02-2021 Resolved: 02-85-3291ColzebctHayab acquired deformities (1 source)Unspecified acquired deformity of unspecified lower legOnset: 12-27-2021 Resolved: 71-13-0440SfzsjxvjSykju and unspecified benign neoplasm (2 sources)Personal history of colonic polypsOnset: 09-13-2021 Resolved: 84-64-3931NvgckerrPurps connective tissue disease (18 sources)Left achilles tendonitis; Translations: [Achilles tendinitis, left leg]Onset: 159042-31-8415KrevypzyUctwc connective tissue disease (18 sources)Calcaneal spur; Translations: [Calcaneal spur, unspecified foot] Onset: 483143-45-0307JaacelupXcrir female genital disorders (18 sources)Burning sensation of vulva; Translations: [Other specified conditions associated with female genital organs and menstrual cycle]Onset: 752031-39-3701HcibpjwtWoivo gastrointestinal disorders (1 source)Dysphagia, unspecifiedOnset: 01-07-2022 Resolved: 73-00-1997JsadcwmeUrnbj gastrointestinal disorders (3 sources)Change in bowel habit; Translations: [Change in bowel habit]Onset: 09-13-2021 Resolved: 49-90-0460HqxaqotqLdutv nervous system disorders (18 sources)Notalgia paresthetica; Translations: [Paresthesia of skin]Onset: 596580-35-1079HipolavaKnhif nervous system disorders (18 sources)Unsteady when standing; Translations: [Unsteadiness on feet]Onset: 754802-32-7080WvahxvucZtniw non-traumatic joint disorders (20 sources)Pain in right knee; Translations: [Pain in joint, lower leg]Onset: 07-24-2011 Resolved: 45-10-2327HlcogeboRmmab non-traumatic joint disorders (1 source)Pain in unspecified knee; Translations: [Knee pain M25.569]Onset: 04-04-2021 Resolved: 39-01-9385NuismhveLvjfy non-traumatic joint disorders (6 sources)Pain in left hip; Translations: [Pain in joint, pelvic region and thigh]Onset: 14-24-2481OzoqfhteNzzjgwrrukju (2 sources)Cough R05.9Onset: 10-01-2021 Resolved: 74-65-6894Pkfxjjucrcpt (1 source)Lumbar pain M54.50Urinary tract infections (20 sources)Cystitis, unspecified without hematuria; Translations: [Acute urinary tract infection]Onset: 06-18-2021 Resolved: 86-55-3794Htpxwbtw Results Test NameValueInterpretationReference RangeFacilityMM screening mammo BI w/CADon 96-20-5354OO screening mammo BI w/CAD[facility] [address] [place] [address] Mammography Report Signed Patient: Kathy Washburn MR#: [id number] : 1940 Acct:[id number] Age/Sex: 84 / F Adm Date: 05/19/25 Loc: [place] Room: Type: [facility] Attending Dr: Ayanna Vicente DO Ordering Provider: Ayanna Vicente DO Date of Service: 05/19/25 Procedure(s): MM screening mammo BI w/CAD Accession Number(s): ([id number]) MM/MM screening mammo BI w/CAD: Z12.31 - Encounter for screening mammogram for malignant ... Copies to: Ayanna Vicente DO CLINICAL DATA: Screening for malignancy. BILATERAL SCREENING MAMMOGRAMS - FULL FIELD DIGITAL WITH TOMOSYNTHESIS AND CAD Tomosynthesis craniocaudal and mediolateral oblique views of both breasts were obtained using low- dose digital technique. Comparison is made to prior studies from 05/18/2024, 08/29/2022, and 08/31/2015. This examination was reviewed with the aid [...] Pacheco M.D. 05/19/2025 3:39 PM Dictation Location: [facility] Dictated By: Favian Pacheco II, MD 05/19/25 1533 Signed By: 05/19/[address] [place] [address] Physician GroupMammography reportOrdered By: Favian Pacheco on 27-91-5063Ojqvjuttei imaging study [facility] [address] [place] [address] Mammography Report Signed Patient: Kathy Washburn MR#: [id number] : 1940 Acct:[id number] Age/Sex: 84 / F Adm Date: 5 Loc: [place] Room: Type: [facility] Attending Dr: Ayanna Vicente DO Ordering Provider: Ayanna Vicente DO Date of Service: 05/19/25 Procedure(s): MM screening mammo BI w/CAD Accession Number(s): ([id number]) MM/MM screening mammo BI w/CAD: Z12.31 - Encounter for screeningmammogram for malignant ... Copies to: Ayanna Vicente DO~ CLINICAL DATA: Screening for malignancy. BILATERAL [...] Pacheco M.D. 05/19/2025 3:39 PM Dictation Location: [facility] Dictated By: Favian Pacheco II, MD 05/19/25 1533 Signed By: 05/19/25 1539 [facility] Work Phone: Cholesterol in LDL Calc [Mass/Vol]Ordered By: Ayanna Vicente on 23-60-1362Mdhjlwhfzvc in LDL [Mass/Vol]59.0 mg/dLOhio State East HospitalComment on above:<100 mg/dl YHMARRW991-905 mg/dl NEAR OR ABOVE NSHTFHR939-255 mg/dl BORDERLINE ZEOC205-789 mg/dl HIGH>190 mg/dl VERY HIGH Cholesterol in VLDL Calc [Mass/Vol]Ordered By: Ayanna Vicente on 05-16-2025 Cholesterol in VLDL [Mass/Vol]31.6 mg/dLOhio [facility] Hospital Globulin Calc (S) [Mass/Vol]Ordered By: Ayanna Vicente on 18-34-3091Xafbfghl (S) [Mass/Vol]3.4 g/dLOhio State East HospitalGlomerular filtration rate (GFR) estimation in non- AmericanOrdered By: Ayanna Vicente on 05-16-2025 GFR/1.73 sq M.predicted among non-blacks MDRD (S/P/Bld) [Vol rate/Area]44 mL/min/{1.73_m2}Low>=60 mL/min/1.73m 2FMercy Health St. Rita's Medical CenterGlucose mean value [Mass/volume] in Blood Estimated from glycated hemoglobinOrdered By: Ayanna Vicente on 79-27-3155Ggqlohy glucose Estimated from glycated hemoglobin (Bld) [Mass/Vol]186 mg/dLOhio State East HospitalHemoglobin A1c percentageOrdered By: Ayanna Vicente on 98-39-6573GtG5f (Bld) [Mass fraction]8.1 % High4.5-6.2FMercy Health St. Rita's Medical CenterComment on above:ADA RECOMMENDED LIMIT 4.0 - 6.0ADA THERAPEUTIC TARGET < 7.0ACTION SUGGESTED> 7.0Laboratory - Chemistry and Chemistry - challengeOrdered By: Ayanna Vicente on 64-81-5964Jytgkzr [Mass/Vol]3.0 g/dLLow3.4-5.0[facility] HospitalALP [Catalytic activity/Vol]92 U/L10-825VakshxdpvOhio State East HospitalALT [Catalytic activity/Vol]36 U/B59-30IkmkfkdkoOhio State East HospitalAST [Catalytic activity/Vol]24 U/K40-58PbwriqrjtOhio State East HospitalBilirubin [Mass/Vol]0.4 mg/dL0.2-1.0[facility] HospitalCalcium [Mass/Vol]8.9 mg/dL 8.5-10.1FMercy Health St. Rita's Medical CenterChloride [Moles/Vol]108 mmol/LHigh 98-107[facility] HospitalCholesterol [Mass/Vol]143 mg/dL<=200 [facility] HospitalCholesterol in HDL [Mass/Vol]53 mg/dL40-60 [facility] HospitalComment on above:> or =60 mg/dl - LOW CARDIOVASCULAR RISK<40 mg/dl - HIGH CARDIOVASCULAR RISKCO2 [Moles/Vol]26.7 mmol/L21.0-32.0[facility] HospitalCreatinine [Mass/Vol]1.17 mg/dL High0.55-1.02[facility] HospitalFree T4 [Mass/Vol]1.14 ng/dL 0.76-1.46[facility] HospitalGFR/1.73 sq M.predicted MDRD (S/P/Bld) [Vol rate/Area]54 mL/min/{1.73_m2}Low>=60 mL/min/1.73m 2FMercy Health St. Rita's Medical CenterGlucose [Mass/Vol]114 mg/dESdse15-723DkbpkrqwqOhio State East HospitalPotassium [Moles/Vol]4.5 mmol/L3.5-5.1FMercy Health St. Rita's Medical Center Protein [Mass/Vol]6.4 g/dL6.4-8.2FProMedica Toledo Hospitalodium [Moles/Vol]145 mmol/Z223-708SmkmmgdwuOhio State East HospitalTriglyceride [Mass/Vol]158 mg/dLHigh<=150[facility] HospitalTSH Qn2.164 m[IU]/L 0.358-3.740[facility] HospitalUrea nitrogen [Mass/Vol]21.0 mg/dL High7.0-18.0[facility] HospitalUrea nitrogen/Creatinine [Mass ratio]17.9 mg/mgOhio State East HospitalNo Panel InformationOrdered By: Ayanna Vicente on 71-90-7960Rbxq Triiodothyronine2.90 pg/mL2.18-3.98C[facility] Clinicerum or plasma albumin/globulin mass ratioOrdered By: Ayanna Vicente on 63-62-5692Bejrnqu/Globulin [Mass ratio]0.9 {ratio}Cleveland Clinicerum or plasma anion gap determinationOrdered By: Ayanna Vicente on 71-40-0258Pfslh gap [Moles/Vol]14.8 mmol/LFProMedica Toledo Hospitalerum or plasma total cholesterol/high density lipoprotein (HDL) cholesterol mass ratOrdered By: Ayanna Vicente on 05-16-2025 Cholesterol.total/Cholesterol in HDL [Mass ratio]2.7 {ratio}[facility] HospitalComment on above:3.3 - 4.4 LOW RISK4.4 - 7.1 AVERAGE RISK7.1 - 11.0 MODERATE RISK>11.0 HIGH RISKCOVID CepheidOrdered By: Mckenzie Christopher on 81-02-2877JUUU-CoV-2 (COVID-19) RNA FARRAH+probe Ql (Unsp spec)NegativeOhio State East HospitalNo Panel InformationOrdered By: Mckenzie Christopher on 18-41-6926XOW Influenza A (PCR)NegativeOhio State East HospitalPOC Influenza B (PCR)NegativeOhio State East HospitalX-ray reportOrdered By: Galo Rodriguez on 66-84-3677Wmrqh report[address] [address] XRay Report Signed Patient: Kathy Washburn MR#: [id number] : 1940 Acct:[id number] Age/Sex: 84 / F ADM Date: 5 Loc: XDUCLY Room: Type: REG CLI Attending Dr: Mckenzie Christopher [employer] Copies to: Mckenzie Christopher APRN~ Ordering Provider: [...] ABNORMALITY. Impression dictated by: Galo Rodriguez Jr., D.OArmando 04/26/2025 2:40 PM Dictation Location: [place] [address] Transcribed By: [facility] 04/26/25 1440 Dictated By: Galo Rodriguez Jr, DO 04/26/25 1436 Signed By: 04/26/25 1440 [facility] HospitalXR chest 2V*on 12-50-6869YW chest 2V*[facility] [address] [address] XRay Report Signed Patient: Kathy Washburn MR#: [id number] : 1940 Acct:[id number] Age/Sex: 84 / F ADM Date: 04/26/25 Loc: XDUC Room: Type: REG CLI Attending Dr: Mckenzie Christopher [employer] Copies to: Mckenzie Christopher APRN Ordering Provider: [...] ABNORMALITY. Impression dictated by: Galo Rodriguez Jr., D.OArmando 04/26/2025 2:40 PM Dictation Location: [facility]27 Transcribed By: [facility] 04/26/25 1440 Dictated By: Galo Rodriguez Jr, DO 04/26/25 1436 Signed By: 04/26/25 1440[facility] Physician GroupCryotherapy, skin lesionOrdered By: Corazon Dietrich on 96-66-2275ENIV HealthcareBasophils/100 WBC Manual cnt (Bld)Ordered By: Som Azul on 19-99-0627Tkjnnqzjm/100 WBC (Bld)0.0 %Low 0.2-2.0[facility] HospitalEosinophils/100 WBC Manual cnt (Bld) Ordered By: Som Azul on 36-88-2808Ovvsuleibav/100 WBC (Bld)2.0 % 0.9-7.0[facility] HospitalErythrocyte distribution width Auto (RBC) [Ratio]Ordered By: Som Azul on 80-13-8701Wrzqdjuahwk distribution width (RBC) [Ratio]13.3 %11.0-15.0[facility] Glomerular filtration rate (GFR) estimation in non- AmericanOrdered By: Som Azul on 76-30-3234ENT/1.73 sq M.predicted among non-blacks MDRD (S/P/Bld) [Vol rate/Area]41 mL/min/{1.73_m2}Low>=60 mL/min/1.73m 2FMercy Health St. Rita's Medical CenterHematocrit Auto (Bld) [Volume fraction]Ordered By: Som Azul on 83-93-2848Iwxyegqytb (Bld) [Volume fraction]39.4 % 36.0-48.0[facility] HospitalHemoglobin [Mass/volume] in Blood Ordered By: Som Azul on 49-51-9520Suilyponvi (Bld) [Mass/Vol]12.8 g/dL 12.0-16.0[facility] HospitalLaboratory - Chemistry and Chemistry - challengeOrdered By: Josecory Augusteraitis on 33-06-1972Lxybewz [Mass/Vol]8.9 mg/dL8.5-10.1FMercy Health St. Rita's Medical CenterChloride [Moles/Vol]107 mmol/L 98-107[facility] HospitalCO2 [Moles/Vol]30.0 mmol/L21.0-32.0 [facility] HospitalCreatinine [Mass/Vol]1.24 mg/dLHigh0.55-1.02 [facility] HospitalGFR/1.73 sq M.predicted MDRD (S/P/Bld) [Vol rate/Area]50 mL/min/{1.73_m2}Low>=60 mL/min/1.73m 2FM[address] Health [address] Rita's Medical CenterGlucose [Mass/Vol]144 mg/zSLhvn43-173LwywcvneiOhio [facility] Hospital Potassium [Moles/Vol]4.8 mmol/L3.5-5.1FProMedica Toledo Hospitalodium [Moles/Vol]144 mmol/V323-620VkciqjknjOhio State East HospitalUrea nitrogen [Mass/Vol]28.0 mg/dLHigh7.0-18.0[facility] HospitalUrea nitrogen/Creatinine [Mass ratio]22.6 mg/mgOhio State East Hospital Laboratory - Hematology and Cell countsOrdered By: Som Augusteraitis on 77-06-4002Agbagzjttcd/100 WBC (Bld)70.0 %High20.5-60.0[facility] HospitalMonocytes/100 WBC (Bld)6.0 %1.7-12.0[facility] Leukocytes [#/volume] corrected for nucleated erythrocytes in Blood by Automated counOrdered By: Som Augusteraitis on 18-96-6441VSR corrected for nucl RBC Auto (Bld) [#/Vol]18.5 10 3/uLHigh4.0-11.0[facility] HospitalMCH Auto (RBC) [Entitic mass]Ordered By: Som Fuchsitis on 92-96-8229OOQ (RBC) [Entitic mass]30.5 pg26.7-34.0[facility] HospitalMCHC Auto (RBC) [Mass/Vol]Ordered By: Andrius Giedraitis on 02-72-0407RYAL (RBC) [Mass/Vol]32.5 g/dL29.9-35.2FMercy Health St. Rita's Medical CenterMCV Auto (RBC) [Entitic vol] Ordered By: Andrius Giedraitis on 68-75-9993VRN (RBC) [Entitic vol]93.8 fL 81.0-99.0[facility] HospitalNo Panel InformationOrdered By: Andrius Giedraitis on 74-36-3505Tahpfyje Basophils (Manual)0.00 10 3/uL0.00-0.10 [facility] HospitalEosinophils # (Manual)0.37 10 3/uL0.00-0.70 [facility] HospitalLymphocytes # (Manual)12.95 10 3/uLHigh 1.20-3.80[facility] HospitalMonocytes # (Manual)1.11 10 3/uLHigh 0.30-0.80[facility] Clinicegmented Neutrophils # (Manual)4.07 10 3/uL1.4-6.5FMercy Health St. Rita's Medical CenterPlatelet mean volume Auto (Bld) [Entitic vol]Ordered By: Andrius Giedraitis on 12-47-9484Csttdexx mean volume (Bld) [Entitic vol]11.6 fL9.5-13.5FMercy Health St. Rita's Medical CenterPlatelets Auto (Bld) [#/Vol]Ordered By: Andrius Giedraitis on 93-75-6111Dzxaqisop (Bld) [#/Vol]219 10 3/wU498-411TghvkywdvOhio State East HospitalRBC Auto (Bld) [#/Vol] Ordered By: Andrius Giedraitis on 56-44-0759TFN (Bld) [#/Vol]4.20 10 6/uL 4.20-5.40[facility] Clinicegmented neutrophils/100 WBC Manual cnt (Bld)Ordered By: Andrius Giedraitis on 78-70-3891Ifswhaygd neutrophils/100 WBC (Bld)22.0 %Low43.0-75.0[facility] Clinicerum or plasma anion gap determinationOrdered By: Andrius Carlyedraitis on 28-25-9038Lqobx gap [Moles/Vol]11.8 mmol/LFMercy Health St. Rita's Medical CenterBasophils/100 WBC Manual cnt (Bld)Ordered By: Andrius Giedraitis on 49-72-3210Lzowfvjla/100 WBC (Bld)0.0 %Low0.2-2.0[facility] HospitalEosinophils/100 WBC Manual cnt (Bld) Ordered By: Andrius Giedraitis on 85-39-1300Eobjithnhkt/100 WBC (Bld)0.0 %Low 0.9-7.0[facility] HospitalErythrocyte distribution width Auto (RBC) [Ratio]Ordered By: Andrius Carlyedraitis on 04-78-6853Nurzxpbaerl distribution width (RBC) [Ratio]13.7 %11.0-15.0[facility] Estimated glomerular filtration rate (GFR) non- AmericanOrdered By: Andrius Giedraitis on 98-89-5905BEN/1.73 sq M.predicted among non-blacks MDRD (S/P/Bld) [Vol rate/Area]35 mL/min/{1.73_m2}Low>=60 mL/min/1.73m 2FMercy Health St. Rita's Medical CenterHematocrit Auto (Bld) [Volume fraction]Ordered By: Andrius Augusterarory on 84-53-0027Rofvvhabxs (Bld) [Volume fraction]36.4 % 36.0-48.0[facility] HospitalHemoglobin [Mass/volume] in Blood Ordered By: Andrius Giedraitis on 85-57-5840Vpwrnmumip (Bld) [Mass/Vol]11.6 g/dL Low12.0-16.0[facility] HospitalLaboratory - Chemistry and Chemistry - challengeOrdered By: Andrius Giedraitis on 34-71-0659Uymztmw [Mass/Vol]9.0 mg/dL8.5-10.1FMercy Health St. Rita's Medical CenterChloride [Moles/Vol] 107 mmol/L34-596GelivkciqOhio State East HospitalCO2 [Moles/Vol]30.8 mmol/L 21.0-32.0[facility] HospitalCreatinine [Mass/Vol]1.43 mg/dLHigh 0.55-1.02[facility] HospitalGFR/1.73 sq M.predicted MDRD (S/P/Bld) [Vol rate/Area]43 mL/min/{1.73_m2}Low>=60 mL/min/1.73m [address]FM[address] Health [address] Rita's Medical CenterGlucose [Mass/Vol]120 mg/jMQiel76-246AnxsxdcdfOhio State East HospitalPotassium [Moles/Vol]5.0 mmol/L3.5-5.1FMercy Health St. Rita's Medical Center Sodium [Moles/Vol]143 mmol/B154-683QuufzwhieOhio State East HospitalUrea nitrogen [Mass/Vol]36.0 mg/dLHigh7.0-18.0[facility] HospitalUrea nitrogen/Creatinine [Mass ratio]25.2 mg/mgOhio State East Hospital Laboratory - Hematology and Cell countsOrdered By: Andrius Giedraitis on 01-87-2983Hpojrvaclyx/100 WBC (Bld)51.0 %20.5-60.0[facility] HospitalMonocytes/100 WBC (Bld)5.0 %1.7-12.0[facility] Leukocytes [#/volume] corrected for nucleated erythrocytes in Blood by Automated counOrdered By: Andrius Giedraitis on 97-87-8490ZXI corrected for nucl RBC Auto (Bld) [#/Vol]19.3 10 3/uLHigh4.0-11.0[facility] Auto (RBC) [Entitic mass]Ordered By: Andrius Giedraitis on 60-98-6347OIU (RBC) [Entitic mass]30.2 pg26.7-34.0[facility] HospitalHC Auto (RBC) [Mass/Vol]Ordered By: Andrius Giedraitis on 37-74-1428NRFY (RBC) [Mass/Vol]31.9 g/dL29.9-35.2FMercy Health St. Rita's Medical CenterMCV Auto (RBC) [Entitic vol] Ordered By: Andrius Giedraitis on 31-38-2548PLK (RBC) [Entitic vol]94.8 fL 81.0-99.0[facility] HospitalNo Panel InformationOrdered By: Andrius Giedraitis on 44-87-5484Fkqetabn Basophils (Manual)0.00 10 3/uL0.00-0.10 [facility] HospitalEosinophils # (Manual)0.00 10 3/uL0.00-0.70 [facility] HospitalLymphocytes # (Manual)9.84 10 3/uLHigh1.20-3.80 [facility] HospitalMonocytes # (Manual)0.96 10 3/uLHigh0.30-0.80 [facility] Clinicegmented Neutrophils # (Manual)8.49 10 3/uL High1.4-6.5FMercy Health St. Rita's Medical CenterPlatelet mean volume Auto (Bld) [Entitic vol]Ordered By: Andrius Giedraitis on 96-72-3291Cdkzfuma mean volume (Bld) [Entitic vol]11.8 fL9.5-13.5FMercy Health St. Rita's Medical CenterPlatelets Auto (Bld) [#/Vol]Ordered By: Andrius Giedraitis on 59-20-2049Nukdqsnvf (Bld) [#/Vol]213 10 3/xF600-583JlqrjfbooOhio State East HospitalRBC Auto (Bld) [#/Vol] Ordered By: Andrius Giedraitis on 00-01-5807WNH (Bld) [#/Vol]3.84 10 6/uLLow 4.20-5.40[facility] Clinicegmented neutrophils/100 WBC Manual cnt (Bld)Ordered By: Andrius Giedraitis on 05-19-4143Toikecpdy neutrophils/100 WBC (Bld)44.0 %43.0-75.0[facility] Clinicerum or plasma anion gap determinationOrdered By: Andrius Giedraitis on 41-17-3863Ytuod gap [Moles/Vol]10.2 mmol/[facility] Medical Centermudge cell detection Ordered By: Som Giadelararory on 69-02-7991Fmrhyr cells LM Ql (Bld)SEEN [facility] HospitalAmbulatory Visit Summaryon 37-50-3221Xblbgklthj Visit SummaryAmbulatory Visit Summary KATHY WASHBURN :1940 Visit Date:02/08/2025 Ambulatory [...] APRN, Sujey Lopez Where: [facility] [address] [place] [address]- You Need to Schedule the Following Appointments Follow Up with Follow up in Spring When: Medications What How Much When Instructions New ciprofloxacin (Cipro 500 mg Tab) 1 Tablets By Mouth Every 12 hours Duration: 7 Days Pickup at [facility] Unchanged estradiol topical (Estrace 0.1 mg/ g Cream) See instructions apply a pea-sized amount vaginally and around the urethra 3x per week for UTI prevention Pickup at [facility] Unchanged trospium (trospium 20 mg [...] Information [facility] (more content not included)...[facility] Urology Office/Clinic Noteon 46-05-0580Cfkcslx Office/Clinic NoteUrology Office/Clinic Note Chief Complaint 6 [...] (N39.41: Urge incontinence) S/p Botox 100u 08/30/21. [place] sxs only improved for a few weeks [...] E&M of Est. Patient Moderate 30-39 Min 15916 2. 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 Patient Moderate 30-39 Min 68828 Orders: ciprofloxacin, 500 mg = 1 tab(s), Oral, q12hr, X 7 day(s), # 14 tab(s), Refills(s) 0, Pharmacy: [facility], 178, cm, 02/08/25 9:03:00 EDT, Height/Length Dosing, 105.1, kg, 02/08/25 9:03:00 EDT, Weight Dosing estradiol topical, See Instructions, 42.5 gm, Refill(s) 6, apply a pea-sized amount vaginally and around the urethra 3x per week for UTI prevention, [facility], 178, cm, 02/08/25 9:03:00 EDT, [...] BID Maxzide-25 oral tablet (more content not included)...[facility] HospitalComment on above:Result Comment: Electronically Signed By: SUSAN RANDOLPH PA-C\Date and Time Signed: 02/08/2510:51 EDTFL barium enemaon 51-79-6952KL barium [facility]aAV[facility] Main [address] [address] Fluoroscopy Report Signed Patient: Kathy Washburn MR#: [id number] : 1940 Acct:[id number] Age/Sex: 84 / F ADM Date: 01/19/25 Loc: XD Room: Type: [facility] Attending Dr: Moe Betts DO [...] 01/19/2025 2:20 PM Dictation Location: [place] [address] Transcribed By: [facility] 01/19/25 1420 Dictated By: Stanford Arndt DO 01/19/25 1417 Signed By: 01/19/25 1420[facility] Physician GroupFluoroscopy reportOrdered By: Stanford Arndt on 21-10-1763GE Unspecified body region ViewsAVITA HEALTH [facility] Main [address] [address] Fluoroscopy Report Signed Patient: Kathy Washburn MR#: [id number] : 1940 Acct:[id number] Age/Sex: 84 / F ADM Date: 5 Loc: XD Room: Type: [facility] Attending Dr: Moe Betts DO [...] 01/19/2025 2:20 PM Dictation Location: [place] [address] Transcribed By: [facility] 01/19/25 1420 Dictated By: Stanford Arndt DO 01/19/25 1417 Signed By: 01/19/25 1420 [facility] HospitalErythrocyte distribution width Auto (RBC) [Ratio]Ordered By: Lesli Arevalo on 02-51-2564Gjbwelkujjz distribution width (RBC) [Ratio]14.3 %11.0-15.0[facility] HospitalEstimated glomerular filtration rate (GFR) non- AmericanOrdered By: Lesli Arevalo on 01-17-2025 GFR/1.73 sq M.predicted among non-blacks MDRD (S/P/Bld) [Vol rate/Area]43 mL/min/{1.73_m2}Low>=60 mL/min/1.73m 2FMercy Health St. Rita's Medical Center Hematocrit Auto (Bld) [Volume fraction]Ordered By: Lesli Arevalo on 01-17-2025 Hematocrit (Bld) [Volume fraction]39.4 %36.0-48.0[facility] HospitalHemoglobin [Mass/volume] in BloodOrdered By: Lesli Arevalo on 01-17-2025 Hemoglobin (Bld) [Mass/Vol]12.7 g/dL12.0-16.0[facility] Laboratory - Chemistry and Chemistry - challengeOrdered By: Lesli Arevalo on 88-87-4224Iufderq [Mass/Vol]3.5 g/dL3.4-5.0[facility] Calcium [Mass/Vol]9.0 mg/dL8.5-10.1FMercy Health St. Rita's Medical CenterChloride [Moles/Vol]109 mmol/MQybg61-853QxlpjctenOhio State East HospitalCO2 [Moles/Vol] 29.7 mmol/L21.0-32.0[facility] HospitalCreatinine [Mass/Vol]1.20 mg/dLHigh0.55-1.02[facility] HospitalGFR/1.73 sq M.predicted MDRD (S/P/Bld) [Vol rate/Area]52 mL/min/{1.73_m2}Low>=60 mL/min/1.73m [address] Rita's Medical CenterGlucose [Mass/Vol]99 mg/gU13-508LqxdjtdjdOhio State East HospitalMagnesium [Mass/Vol]1.5 mg/dLLow1.8-2.4FMercy Health St. Rita's Medical CenterPotassium [Moles/Vol]4.9 mmol/L3.5-5.1FMercy Health St. [facility]'s [facility] Center Sodium [Moles/Vol]146 mmol/YWffm205-516VscsqevjoOhio State East HospitalUrate [Mass/Vol]6.2 mg/dLHigh2.6-6.0[facility] HospitalUrea nitrogen [Mass/Vol]35.0 mg/dLHigh7.0-18.0[facility] HospitalUrea nitrogen/Creatinine [Mass ratio]29.2 mg/mgOhio [facility] Hospital Bilirubin Ql (U)NegativeNEGATIVEOhio State East HospitalGlucose (U) [Mass/Vol]NegativeNEGATIVEOhio State East HospitalKetones Ql (U) NegativeNEGProtestant HospitalpH (U)6.0 [pH]5.0-9.0Cleveland Clinicpecific gravity (U) [Rel density]1.0251.005-1.025 [facility] HospitalUrobilinogen Qn (U)0.2 {Jose'U}/dL0.2-1.0 [facility] HospitalLaboratory - Specimen informationOrdered By: Lesli Arevalo on 13-37-8548Pgtezuhyyh (U)CLEARCLEARFMercy Health St. Rita's Medical CenterColor (U)DK. YELLOWYELLOWOhio State East HospitalLaboratory - UrinalysisOrdered By: Lesli Arevalo on 69-15-8526Ybtgabsjj esterase Test strip Ql (U)NegativeNEGProtestant HospitalMucus Ql (Urine sed)TRACE AbnormalNONE SEENOhio State East HospitalNitrite Ql (U)NegativeNEGATIVE [facility] HospitalProtein (U) [Mass/Vol]41.4 mg/dLHigh<=11.9 [facility] HospitalProtein Ql (U)TRACE mg/dLNEG/TRACEOhio State East HospitalLeukocytes [#/volume] corrected for nucleated erythrocytes in Blood by Automated counOrdered By: Lesli Areavlo on 97-89-3268AEH corrected for nucl RBC Auto (Bld) [#/Vol]18.8 10 3/uLHigh4.0-11.0[facility] Auto (RBC) [Entitic mass]Ordered By: Lesli Arevalo on 51-41-4987XAV (RBC) [Entitic mass]30.2 pg26.7-34.0[facility] HospitalHC Auto (RBC) [Mass/Vol]Ordered By: Lesli Arevalo on 74-62-8190HLFT (RBC) [Mass/Vol]32.2 g/dL29.9-35.2FSouthern Ohio Medical CenterV Auto (RBC) [Entitic vol]Ordered By: Lesli Arevalo on 19-08-8495WVJ (RBC) [Entitic vol]93.6 fL 81.0-99.0[facility] HospitalNo Panel InformationOrdered By: Lesli Arevalo on 127963-Hopkgge Vitamin D Total61.8 ng/mLOhio State East HospitalComment on above:<20 ng/mL Vit D kdlfumorq44-<30 ng/mL Vit D kpuifbkkpmkz33-133 ng/mL Vit D sufficient>100 ng/mL Potential Toxicity Parathyroid Hormone (Intact)42 pg/nP56-39ZamyoprqjOhio State East Hospital Comment on above:Performed at: - [facility] [id number] Director: Narinder Elam PhD, Phone: [phone] Level 4.1 mg/dL2.6-4.7FMercy Health St. Rita's Medical CenterUrine BacteriaSMALL #/HPF AbnormalNONE SEENOhio State East HospitalUrine Occult BloodNegative NEGATIVEOhio State East HospitalUrine Other CastsNONE SEEN #/LPFNONE SEENOhio State East HospitalUrine Other CrystalsNone Seen #/HPFNone [facility] HospitalUrine Random Gzoscznhas558.94 mg/dL 20.00-300.00[facility] HospitalUrine RBC0-2 #/HPF0-2FMercy Health St. Rita's Medical CenterUrine Squamous Epithelial CellsRARE #/LPFNONE/RARE [facility] HospitalUrine WBC0-2 #/HPFAbnormalNONE SEENOhio State East HospitalPlatelet mean volume Auto (Bld) [Entitic vol]Ordered By: Lesli Arevalo on 11-69-0000Hdgnhrkn mean volume (Bld) [Entitic vol]11.4 fL9.5-13.5 [facility] HospitalPlatelets Auto (Bld) [#/Vol]Ordered By: Lesli Arevalo on 22-46-3605Gcmfxkrvo (Bld) [#/Vol]217 10 3/tB428-047CugrqycdeOhio State East HospitalRBC Auto (Bld) [#/Vol]Ordered By: Lesli Arevalo on 70-81-7221MFM (Bld) [#/Vol]4.21 10 6/uL4.20-5.40[facility] Clinicerum or plasma anion gap determinationOrdered By: Lesli Arevalo on 22-81-7967Gpfag gap [Moles/Vol]12.2 mmol/LFMercy Health St. Rita's Medical CenterUrine protein/creatinine ratioOrdered By: Lesli Arevalo on 92-11-2243Zppqyww/Creatinine (U) [Ratio]0.35 [facility] HospitalCNOVon 41-08-8549AOHBDkgzav Visit (INEZ) KATHY WASHBURN ([id number]) 1940 F Date Time Provider Department 12/17/24 10:20 AM ZOHAIB GERMAN During your visit today, we recorded the following information about you: Temperature Blood pressure Weight Height 65 degrees 112/71 103.6 kg 1.727 m Zohaib German MD 12/17/2024 10:49 AM Signed [facility] Date of Service: 12/17/2024 Patient: Kathy Washburn Medical Record: [id number] Primary Care Physician: Ayanna Vicente DO Last [...] status and 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 There have not been any new health [...] (IBD) Leukocytosis Mixed hyp (more content not included)...NormalOhioHealth Grant Medical CenterPNon 98-30-4954WEUTHapfvctvg (NCCAP) KATHY WASHBURN ([id number]) 1940 F Date Time Provider Department 11/17/24 [...] to be following with Dr Silva @ [facility] as this is closer to home for patient. Roxie requested to talk to medical records regarding having records sent to Dr Silva transferred call To Heather Todd. Lori Todd [facility] CenterSusan 11/17/2024 2:36 PM Signed Records faxed to Dr. Silva [phone]. I called Roxie to let her know [...] 07/24/2011 Encounter Status:Closed by LORI RENNER on 11/17/24NoMemorial Health System Sel[facility] HospitalAcanthocytes [Presence] in Blood by Light microscopyon 11-01-2024 Acanthocytes LM Ql (Bld)Acanthocytes [Presence] in Blood by Light microscopy [facility] HospitalAcanthocytes LM Ql (Bld)1+[facility] HospitalBasophils/100 WBC Manual cnt (Bld)on 13-27-7316Apdlciwqf/100 WBC (Bld)Basophils/100 leukocytes in Blood by Manual count0.2-2.0[facility] HospitalBasophils/100 WBC (Bld)2.0 %0.2-2.0[facility] HospitalCholesterol in LDL Calc [Mass/Vol]on 24-79-3830Chhqzdmssix in LDL [Mass/Vol]Cholesterol in LDL [Mass/volume] in Serum or Plasma by calculation [facility] HospitalComment on above:<100 mg/dl FWWTFBN202-985 mg/dl NEAR OR ABOVE TNNLOHC003-209 mg/dl BORDERLINE LCJT029-673 mg/dl HIGH>190 mg/dl VERY HIGHCholesterol in LDL [Mass/Vol]29.2 mg/dLOhio State East HospitalComment on above:<100 mg/dl IWUZDPA487-257 mg/dl NEAR OR ABOVE CAKDFEM078-793 mg/dl BORDERLINE IFZI677-022 mg/dl HIGH>190 mg/dl VERY HIGH Cholesterol in VLDL Calc [Mass/Vol]on 65-53-9656Omkmmqmpzby in VLDL [Mass/Vol] Cholesterol in VLDL [Mass/volume] in Serum or Plasma by calculationOhio State East HospitalCholesterol in VLDL [Mass/Vol]22.8 mg/dLOhio State East HospitalEosinophils/100 WBC Manual cnt (Bld)on 11-01-2024 Eosinophils/100 WBC (Bld)Eosinophils/100 leukocytes in Blood by Manual count 0.9-7.0[facility] HospitalEosinophils/100 WBC (Bld)1.0 %0.9-7.0 [facility] HospitalErythrocyte distribution width Auto (RBC) [Ratio]on 23-52-1397Dtcbtfwcfgk distribution width (RBC) [Ratio]14.6 %11.0-15.0 [facility] HospitalEstimated glomerular filtration rate (GFR) non- Americanon 92-41-0834GQV/1.73 sq M.predicted among non-blacks MDRD (S/P/Bld) [Vol rate/Area]Estimated glomerular filtration rate (GFR) non- AmericanLow>=60 mL/min/1.73m [address] [place], [place] [address]GFR/1.73 sq M.predicted among non-blacks MDRD (S/P/Bld) [Vol rate/Area]36 mL/min/{1.73_m2} Low>=60 mL/min/1.73m [address] [place], [place] [address]Globulin Calc (S) [Mass/Vol]on 51-31-4270Tkngyfsc (S) [Mass/Vol]Serum globulin measurement by calculation (mass/volume)[facility] HospitalGlobulin (S) [Mass/Vol]3.4 g/dLOhio State East HospitalGlucose mean value [Mass/volume] in Blood Estimated from glycated hemoglobinon 02-80-6160Puzjfvz glucose Estimated from glycated hemoglobin (Bld) [Mass/Vol]Glucose mean value [Mass/volume] in Blood Estimated from glycated hemoglobinOhio State East HospitalAverage glucose Estimated from glycated hemoglobin (Bld) [Mass/Vol]154 mg/dLOhio State East HospitalHematocrit Auto (Bld) [Volume fraction]on 88-22-7765Hmxrdafukt (Bld) [Volume fraction]41.5 %36.0-48.0 [facility] HospitalHemoglobin A1c percentageon 41-45-2332FeA5v (Bld) [Mass fraction]Hemoglobin A1c percentageHigh4.5-6.2FMercy Health St. Rita's Medical CenterComment on above:ADA RECOMMENDED LIMIT 4.0 - 6.0ADA THERAPEUTIC TARGET < 7.0ACTION SUGGESTED> 7.0HbA1c (Bld) [Mass fraction]7.0 %High4.5-6.2 [facility] HospitalComment on above:ADA RECOMMENDED LIMIT 4.0 - 6.0ADA THERAPEUTIC TARGET < 7.0ACTION SUGGESTED> 7.0Hemoglobin [Mass/volume] in Bloodon 72-96-4338Vuknxbbziu (Bld) [Mass/Vol]13.2 g/dL12.0-16.0[facility] HospitalLaboratory - Chemistry and Chemistry - challengeon 89-12-6225Bemauiq [Mass/Vol]3.3 g/dLLow3.4-5.0[facility] ALP [Catalytic activity/Vol]89 U/T05-241InqpcqjmvOhio State East HospitalALT [Catalytic activity/Vol]43 U/E07-42SvvkrggmbOhio State East HospitalAST [Catalytic activity/Vol]26 U/A46-17HipnindfkOhio State East HospitalBilirubin [Mass/Vol]0.3 mg/dL0.2-1.0[facility] HospitalCalcium [Mass/Vol]9.0 mg/dL8.5-10.1FMercy Health St. Rita's Medical CenterChloride [Moles/Vol]109 mmol/L Zkus87-445RuolqgqasOhio State East HospitalCholesterol [Mass/Vol]111 mg/dL<=200 [facility] HospitalCholesterol in HDL [Mass/Vol]59 mg/dL40-60 [facility] HospitalComment on above:> or =60 mg/dl - LOW CARDIOVASCULAR RISK<40 mg/dl - HIGH CARDIOVASCULAR RISKCO2 [Moles/Vol]29.4 mmol/L21.0-32.0[facility] HospitalCreatinine [Mass/Vol]1.39 mg/dL High0.55-1.02[facility] HospitalFree T4 [Mass/Vol]1.14 ng/dL 0.76-1.46[facility] HospitalGFR/1.73 sq M.predicted MDRD (S/P/Bld) [Vol rate/Area]44 mL/min/{1.73_m2}Low>=60 mL/min/1.73m 2FMercy Health St. Rita's Medical CenterGlucose [Mass/Vol]88 mg/bJ17-217IqtgppzieOhio State East Hospital Potassium [Moles/Vol]5.4 mmol/LHigh3.5-5.1FMercy Health St. Rita's Medical Center Protein [Mass/Vol]6.7 g/dL6.4-8.2FProMedica Toledo Hospitalodium [Moles/Vol]143 mmol/T122-127GlswsnrsfOhio State East HospitalTriglyceride [Mass/Vol]114 mg/dL<=150[facility] HospitalTSH Qn0.958 m[IU]/L 0.358-3.740[facility] HospitalUrea nitrogen [Mass/Vol]44.0 mg/dL High7.0-18.0[facility] HospitalUrea nitrogen/Creatinine [Mass ratio]31.7 mg/mgOhio State East HospitalLaboratory - Hematology and Cell countson 80-75-9643Hcam form neutrophils/100 WBC (Bld)1.0 %0-5FMercy Health St. Rita's Medical CenterLymphocytes/100 WBC (Bld)66.0 %High20.5-60.0[facility] HospitalMonocytes/100 WBC (Bld)7.0 %1.7-12.0[facility] HospitalLeukocytes [#/volume] corrected for nucleated erythrocytes in Blood by Automated counon 43-74-1497KVL corrected for nucl RBC Auto (Bld) [#/Vol]21.6 10 3/uLHigh4.0-11.0[facility]H Auto (RBC) [Entitic mass]on 76-86-0014FVM (RBC) [Entitic mass]30.2 pg26.7-34.0[facility] HospitalMCHC Auto (RBC) [Mass/Vol]on 06-25-8468AZJC (RBC) [Mass/Vol]31.8 g/dL29.9-35.2FMercy Health St. Rita's Medical CenterMCV Auto (RBC) [Entitic vol]on 15-03-2967LTF (RBC) [Entitic vol]95.0 fL81.0-99.0[facility] HospitalMicroalbumin [Mass/volume] in Urineon 10-72-2298Yydeluh DL <= 20 mg/L (U) [Mass/Vol]Microalbumin [Mass/volume] in Urine<=30.0[facility] HospitalAlbumin DL <= 20 mg/L (U) [Mass/Vol]1.3 mg/dL<=30.0 [facility] HospitalNo Panel Informationon 89-13-3673Zoezbqpx Basophils (Manual)0.43 10 3/uLHigh0.00-0.10[facility] HospitalBand Neutrophils # (Manual)0.2 10 3/uL0.0-0.3FMercy Health St. Rita's [facility] Center Eosinophils # (Manual)0.21 10 3/uL0.00-0.70[facility] HospitalFree Triiodothyronine1.62 pg/mLLow2.18-3.98[facility] Lymphocytes # (Manual)14.25 10 3/uLHigh1.20-3.80[facility] HospitalMonocytes # (Manual)1.51 10 3/uLHigh0.30-0.80[facility] Clinicegmented Neutrophils # (Manual)4.96 10 3/uL1.4-6.5FMercy Health St. Rita's Medical CenterUrine Random Srhfdwimly30.71 mg/dL20.00-300.00[facility] HospitalOvalocyte detectionon 64-43-0593Dugtfmvxjm LM Ql (Bld)Ovalocyte detectionOhio State East HospitalOvalocytes LM Ql (Bld)1+[facility] HospitalPlatelet mean volume Auto (Bld) [Entitic vol]on 27-79-9568Zpetefmn mean volume (Bld) [Entitic vol]11.0 fL9.5-13.5FMercy Health St. Rita's Medical CenterPlatelets Auto (Bld) [#/Vol]on 19-05-8794Attktepch (Bld) [#/Vol]239 10 3/zT516-100MjpktvahkOhio State East HospitalPoikilocytosis [Presence] in Blood by Light microscopyon 35-85-5774Djznutuqxkjgla LM Ql (Bld) Poikilocytosis [Presence] in Blood by Light microscopyOhio State East HospitalPoikilocytosis LM Ql (Bld)1+[facility] HospitalRBC Auto (Bld) [#/Vol]on 51-60-8676WLC (Bld) [#/Vol]4.37 10 6/uL4.20-5.40Cleveland Clinicegmented neutrophils/100 WBC Manual cnt (Bld)on 32-98-1921Xlcxufjyk neutrophils/100 WBC (Bld)Manual blood segmented neutrophils/100 nwxgjnzkieFbd95.0-75.0C[facility] Clinicegmented neutrophils/100 WBC (Bld)23.0 %Low43.0-75.0[facility] Serum or plasma albumin/globulin mass ratioon 90-48-4516Ucpzrog/Globulin [Mass ratio]Serum or plasma albumin/globulin mass ratioOhio State East HospitalAlbumin/Globulin [Mass ratio]1.0 {ratio}[facility] Serum or plasma anion gap determinationon 07-20-6097Psrdj gap [Moles/Vol]Serum or plasma anion gap determinationOhio State East HospitalAnion gap [Moles/Vol]10.0 mmol/LFProMedica Toledo Hospitalerum or plasma total cholesterol/high density lipoprotein (HDL) cholesterol mass faustino 11-01-2024 Cholesterol.total/Cholesterol in HDL [Mass ratio]Serum or plasma total cholesterol/high density lipoprotein (HDL) cholesterol mass ratOhio State East HospitalComment on above:3.3 - 4.4 LOW RISK4.4 - 7.1 AVERAGE RISK7.1 - 11.0 MODERATE RISK>11.0 HIGH RISKCholesterol.total/Cholesterol in HDL [Mass ratio]1.9 {ratio}[facility] HospitalComment on above:3.3 - 4.4 LOW RISK4.4 - 7.1 AVERAGE RISK7.1 - 11.0 MODERATE RISK>11.0 HIGH RISKUrine microalbumin/creatinine mass ratioon 91-03-7244Vzdafgu/Creatinine DL <= 20 mg/L (U) [Mass ratio]Urine microalbumin/creatinine mass ratio0.0-29.9[facility] HospitalComment on above:NO MICROALBUMINURIA 0-29 MG/GCLINICAL MICROALBUMINURIA 30-300 MG/GMACROALBUMINURIA >300 MG/GAlbumin/Creatinine DL <= 20 mg/L (U) [Mass ratio]13.8 mg/g0.0-29.9[facility] Comment on above:NO MICROALBUMINURIA 0-29 MG/GCLINICAL MICROALBUMINURIA 30-300 MG/GMACROALBUMINURIA >300 MG/GReminderson 12-61-6136XrrmffmghYdozrusud From: Lori Bledsoe To: EU - Administrative; Sent: 02/24/2024 10:44:10 EDT Show up: 06/25/2024 09:43:00 EST Subject: 6 MO F/U Due Date/Time: 08/26/2024 09:43:00 EST Reminder/Recall PT SEEN ON 02/24/2024 BY JINNY IN [place]. PT WILL NEED A 6 MO F/U. APPT DUE BY 08/26/2024 NO ANSWER Pt is scheduled for 02/14/25.NormalCarepartners Rehabilitation Hospitaler Brandenburg CenterLaboratory - Chemistry and Chemistry - challengeon 94-59-1192Izuterosb Ql (U)NegativeNEGATIVE [facility] HospitalGlucose (U) [Mass/Vol]NegativeNEGATIVEOhio State East HospitalKetones Ql (U)TRACE mg/dLAbnormalNEGProtestant HospitalpH (U)5.5 [pH]5.0-9.0[facility] Specific gravity (U) [Rel density]1.0251.005-1.025[facility] HospitalUrobilinogen Qn (U)0.2 {Jose'U}/dL0.2-1.0[facility] HospitalLaboratory - Specimen informationon 88-91-5919Zmyalpazzn (U)CLEARCLEAR [facility] HospitalColor (U)LT YELLOWYELLOWOhio State East HospitalLaboratory - Urinalysison 23-68-6976Xqqvtoklz esterase Test strip Ql (U)NegativeNEGATIVEOhio State East HospitalNitrite Ql (U)Negative NEGATIVEOhio State East HospitalProtein Ql (U)TRACE mg/dLNEG/TRACE [facility] HospitalNo Panel Informationon 27-81-2937Wpxmr Occult BloodNegativeNEGATIVEOhio State East HospitalUrine Cultureon 09-03-2024 Bacteria identified Cx Nom (U)75,000 colonies/ml mixed bacterial skin contaminants 2 Days PERFORMED BY: [place] [address] PATHOLOGIST RAW MATERIAL PLANNER IDA ARMIJO M.D.NormalThe Unc Health Lenoir Physician GroupComment on above: Performed By: #### CUU #### [place] [address] USAAmbulatory Visit Summaryon 99-26-3185Ukikjfhjhi Visit SummaryAmbulatory Visit Summary KATHY WASHBURN :1940 [...] Follow-Up Appointments Friday 1:20 PM EDT With: SSUAN RANDOLPH PA-C Where: [facility] [address] [place] [address]- You Need to Schedule the Following Appointments Follow Up with SUSAN RANDOLPH PA-C, URL When: In 6 months Where: [address] [place] [address] Medications What How Much When Instructions New estradiol topical (Estrace 0.1 mg/ g Cream) See instructions Refills: 6 apply a pea-sized amount vaginally and around the urethra 3x per week for UTI prevention Pickup at [facility] Unchanged acetaminophen-oxycodone (acetaminophen-oxycodone 325 mg-5 mg [...] Pharmacy Information Discount D (more content not included)...[facility] Urology Office/Clinic Noteon 11-94-8730Pbycrsd Office/Clinic NoteUrology Office/Clinic Note Chief Complaint Frequent [...] will consider cystoscopy w possible UD. Ordered: 04999 Measure Post Void residual urine and/or bladder capacity by US- non-imaging Complex E&M Add on G2211 E&M of Est. Patient Moderate 30-39 Min 52266 Urnls Dip Stick Auto w/o Microscopy POC 38611 2. Urgency incontinence (N39.41: Urge incontinence) S/p Botox 100u 08/30/21. [place] sxs only improved for a few weeks [...] E&M of Est. Patient Moderate 30-39 Min 63565 Orders: estradiol topical, See Instructions, 42.5 gm, Refill(s) 6, apply a pea-sized amount vaginally and around the urethra 3x per week for UTI prevention, [facility], 178, cm, 08/16/24 9:10:00 EST, Height/Length Dosing, 103, kg, 08/16/24 9:10:00 EST, Weight Do... Follow-up With When Contact Information SUSAN RANDOLPH PA-C, URL In 6 months [address] [place] [address] Additional Instructions: Patient Education Antibiotic [...] repair. Medications acetaminophen-oxycodone 325 (more content not included)...[facility] HospitalComment on above:Result Comment: Electronically Signed By: SUSAN RANDOLPH PA-C\.br\Date and Time Signed: 08/16/2509:05 ESTAppearance of Urine Ordered By: Ayanna Vicente on 34-12-6704Xoqohrlbeh (U)Urine appearanceAbnormal ClearOhio State East HospitalBacteria [Presence] in Urine by Automated Ordered By: Ayanna Vicente on 82-97-2577Dtkiarth Auto Ql (U)Bacteria [Presence] in Urine by AutomatedNone Greene Memorial HospitalBilirubin Test strip Ql (U)Ordered By: Ayanna Vicente on 89-40-2270Fvchuvwvt Ql (U) Bilirubin.total [Presence] in Urine by Test stripNegativeOhio State East HospitalColor Auto (U)Ordered By: Ayanna Vicente on 42-57-5974Gkola (U)Color of Urine by AutoAbnormalYellowOhio State East HospitalDipstick and Microscopicon 47-37-5379Acmlidrhfu (U)CloudyCritically abnormalClearThe [facility] Physician GroupComment on above:Order Comment: Name Collection Type:: Clean-Voided MidstreamPerformed By: #### CUU, ADDONUAPLUS #### [place] [address] USABacteria,UrineNone SeenNormalNone [facility] Physician GroupComment on above:Order Comment: Name Collection Type:: Clean- Voided MidstreamPerformed By: #### CUU, ADDONUAPLUS #### [facility] [address] [place] [address] USABilirubin,UrineNegativeNormalNegativeHca Florida Trinity Hospital Physician GroupComment on above:Order Comment: Name Collection Type:: Clean- Voided MidstreamPerformed By: #### CUU, ADDONUAPLUS #### [place] [address] USAColor (U)Dark-YellowCritically abnormalYellowHca Florida Trinity Hospital Physician GroupComment on above:Order Comment: Name Collection Type:: Clean- Voided MidstreamPerformed By: #### CUU, ADDONUAPLUS #### [place] [address] USAGlucose Ql (U)NormalNormalNormSelect Medical Specialty Hospital - Youngstowne [facility] Physician GroupComment on above:Order Comment: Name Collection Type:: Clean-Voided MidstreamPerformed By: #### CUU, ADDONUAPLUS #### [place] [address] USAHyaline Casts,Urine0 [LPF]Normal0-8The [facility] Physician GroupComment on above:Order Comment: Name Collection Type:: Clean-Voided MidstreamPerformed By: #### CUU, ADDONUAPLUS #### [place] [address] USAKetones Ql (U)NegativeNormalNegativeHca Florida Trinity Hospital Physician GroupComment on above:Order Comment: Name Collection Type:: Clean- Voided MidstreamPerformed By: #### CUU, ADDONUAPLUS #### [facility] [address] [place] [address] USALeukocyte esterase Test strip Ql (U)4+HighNegativeHca Florida Trinity Hospital Physician GroupComment on above:Order Comment: Name Collection Type:: Clean-Voided MidstreamPerformed By: #### CUU, ADDONUAPLUS #### [place] [address] USAMucus,UrineRareNormalHca Florida Trinity Hospital Physician GroupComment on above:Order Comment: Name Collection Type:: Clean-Voided MidstreamResult Comment: PERFORMED BY: [place] [address] PATHOLOGIST RAW MATERIAL PLANNER IDA ARMIJO M.D.Performed By: #### CUU, ADDONUAPLUS #### [place] [address] USANitrite,UrinePositiveHighNegativeThe [facility] Physician GroupComment on above:Order Comment: Name Collection Type:: Clean-Voided MidstreamPerformed By: #### CUU, ADDONUAPLUS #### [place] [address] USAOccult Blood,UrineNegativeNormalNegativeThe [facility] Physician GroupComment on above:Order Comment: Name Collection Type:: Clean- Voided MidstreamResult Comment: PERFORMED BY: [place] [address] PATHOLOGIST RAW MATERIAL PLANNER IDA ARMIJO M.D.Performed By: #### CUU, ADDONUAPLUS #### [place] [address] USApH (U)6.0 [pH]Normal5.0-9.0The [facility] Comment on above:Order Comment: Name Collection Type:: Clean-Voided Midstream Performed By: #### CUU, ADDONUAPLUS #### [place] [address] USAProtein (U) [Mass/Vol]30 mg/dLHighNegativeThe [facility] Physician GroupComment on above:Order Comment: Name Collection Type:: Clean- Voided MidstreamPerformed By: #### CUU, ADDONUAPLUS #### [place] [address] USARBC,Urine1 [HPF]Normal0-4The [facility] Comment on above:Order Comment: Name Collection Type:: Clean-Voided Midstream Performed By: #### CUU, ADDONUAPLUS #### [address] [place] [address] USASpecificy Flasher,Urine1.030Cauhop5.001-1.030The [facility] Physician GroupComment on above:Order Comment: Name Collection Type:: Clean- Voided MidstreamPerformed By: #### CUU, ADDONUAPLUS #### [place] [address] USASquamous Epithelial Cell,Urine1 [HPF]Normal0-2The [facility] Physician GroupComment on above:Order Comment: Name Collection Type:: Clean-Voided MidstreamPerformed By: #### CUU, ADDONUAPLUS #### [place] [address] USAUrobilinogen,UrineNormalNormalNormalThe [facility] Physician GroupComment on above:Order Comment: Name Collection Type:: Clean- Voided MidstreamPerformed By: #### CUU, ADDONUAPLUS #### [place] [address] USAWBC CLUMP, UrineManyHighNone SeenThe [facility] Physician GroupComment on above:Order Comment: Name Collection Type:: Clean-Voided MidstreamPerformed By: #### CUU, ADDONUAPLUS #### [place] [address] USAWBC,UrineInnumerableHigh0-4The [facility] Comment on above:Order Comment: Name Collection Type:: Clean-Voided Midstream Performed By: #### CUU, ADDONUAPLUS #### [place] [address] USAEpithelial cells.squamous [#/area] in Urine sediment by Automated countOrdered By: Ayanna Vicente on 97-23-8355Qqxolorkmu cells.squamous Auto (Urine sed) [#/Area]Epithelial cells.squamous [#/area] in Urine sediment by Automated count0-2FMercy Health St. Rita's Medical CenterErythrocytes [#/area] in Urine sediment by Automated countOrdered By: Ayanna Vicente on 83-89-7136DBB Auto (Urine sed) [#/Area]Erythrocytes [#/area] in Urine sediment by Automated count 0-4FMercy Health St. Rita's Medical CenterGlucose [Mass/volume] in Urine by Test strip Ordered By: Ayanna Vicente on 94-35-6789Forewdl Test strip (U) [Mass/Vol]Glucose [Mass/volume] in Urine by Test stripNormSumma Health Hemoglobin Test strip Ql (U)Ordered By: Ayanna Vicente on 29-84-7594Laocbvzews Ql (U)Hemoglobin [Presence] in Urine by Test stripNegSelect Medical Cleveland Clinic Rehabilitation Hospital, AvonHyaline casts [#/area] in Urine sediment by Automated countOrdered By: Ayanna Vicente on 09-71-5838Iuvwhxk casts Auto (Urine sed) [#/Area]Hyaline casts [#/area] in Urine sediment by Automated count0-8[facility] HospitalKetones Test strip Ql (U)Ordered By: Ayanna Vicente on 41-85-6079Kadxali Ql (U)Ketones [Presence] in Urine by Test stripNegSelect Medical [facility] Clinic Rehabilitation Hospital, AvonLeukocyte clumps [Presence] in Urine by AutomatedOrdered By: Ayanna Vicente on 30-71-3865Evnomduck clumps Auto Ql (U)Leukocyte clumps [Presence] in Urine by AutomatedHighNone Greene Memorial HospitalLeukocyte esterase [Presence] in Urine by Test stripOrdered By: Ayanna Vicente on 30-45-3618Ckkzxjklb esterase Test strip Ql (U)Leukocyte esterase [Presence] in Urine by Test strip HighNegSelect Medical Cleveland Clinic Rehabilitation Hospital, AvonLeukocytes [#/area] in Urine sediment by Automated countOrdered By: Ayanna Vicente on 37-26-0702QVC Auto (Urine sed) [#/Area]Leukocytes [#/area] in Urine sediment by Automated countHigh0-4 [facility] HospitalMucus [Presence] in Urine by AutomatedOrdered By: Ayanna Vicente on 18-68-1599Lgdtc Auto Ql (U)Mucus [Presence] in Urine by AutomatedOhio State East HospitalNitrite Test strip Ql (U)Ordered By: Ayanna Vicente on 67-58-7590Zpirbrx Ql (U)Nitrite [Presence] in Urine by Test stripRiver Park HospitalNegSelect Medical [facility] Clinic Rehabilitation Hospital, AvonProtein Test strip (U) [Mass/Vol]Ordered By: Ayanna Vicente on 71-42-3735Egnsnbj (U) [Mass/Vol]Protein [Mass/volume] in Urine by Test stripHighNegativeCleveland Clinicpecific gravity Test strip (U) [Rel density]Ordered By: Ayanna Vicente on 37-83-5455Dkqdtzxu gravity (U) [Rel density]Specific gravity of Urine by Test strip1.001-1.030[facility] HospitalUrine Cultureon 08-10-2024 Bacteria identified Cx Nom (U)ORGANISM: Escherichia coli (O:ESCCOL) [place] Count >100,000 Aerobic CORNELIA Charge (NMIC56) SUSCEPTIBILITY [...] DRUGS. PERFORMED BY: [facility] [address] [place] [address] PATHOLOGIST RAW MATERIAL PLANNER IDA ARMIJO M.D.[facility] Physician GroupComment on above: Performed By: #### CUU, ADDONUAPLUS #### [facility] [address] StreetUrine cultureOrdered By: Ayanna Vicente on 08-10-2024 Bacteria identified Cx Nom (U)Escherichia coliAbnoUniversity Hospitals Elyria Medical CenterUrobilinogen Test strip (U) [Mass/Vol]Ordered By: Ayanna Vicente on 64-90-4432Wyrayltprgpe (U) [Mass/Vol]Urobilinogen [Mass/volume] in Urine by Test stripNoUniversity Hospitals Elyria Medical CenterpH Test strip (U)Ordered By: Ayanna Vicente on 28-66-8054mE (U)pH of Urine by Test strip5.0-9.0[facility] HospitalALL THYROID STIM HORMONEon 75-32-9678USJ Qn2.632 m[IU]/LNOMS HealthcareCLINISYNCNOMS HealthcareEstimated glomerular filtration rate (GFR) non- Americanon 55-40-0925ECL/1.73 sq M.predicted among non-blacks MDRD (S/P/Bld) [Vol rate/Area]Estimated glomerular filtration rate (GFR) non- AmericanLow>=60 mL/min/1.73m 2FMercy Health St. Rita's Medical CenterLaboratory - Chemistry and Chemistry - challengeon 77-22-1178Sjkvhwh [Mass/Vol]9.2 mg/dL 8.5-10.1FMercy Health St. Rita's Medical CenterChloride [Moles/Vol]105 mmol/L98-107 [facility] HospitalCO2 [Moles/Vol]30.0 mmol/L21.0-32.0[facility] HospitalCobalamin (Vitamin B12) [Mass/Vol]721 pg/aX404-5629 [facility] HospitalComment on above:Performed at: - [facility] [id number] Director: Narinder Elam PhD, Phone: [phone] [Mass/Vol]1.36 mg/dLHigh0.55-1.02[facility] HospitalGFR/1.73 sq M.predicted MDRD (S/P/Bld) [Vol rate/Area]45 mL/min/{1.73_m2}Low>=60 mL/min/1.73m 2FMercy Health St. Rita's Medical CenterGlucose [Mass/Vol]125 mg/pQBpfl55-536WdvwnzcrrOhio State East HospitalPotassium [Moles/Vol]4.8 mmol/L3.5-5.1FProMedica Toledo Hospitalodium [Moles/Vol] 141 mmol/P805-754LrpvuowwzOhio State East HospitalTSH Qn2.632 m[IU]/L0.358-3.740 [facility] HospitalUrea nitrogen [Mass/Vol]28.0 mg/dLHigh7.0-18.0 [facility] HospitalUrea nitrogen/Creatinine [Mass ratio]20.6 mg/mg Cleveland Clinicerum or plasma anion gap determinationon 22-93-9802Zddmi gap [Moles/Vol]Serum or plasma anion gap determinationOhio State East HospitalBasophils/100 WBC Manual cnt (Bld)on 06-15-2024 Basophils/100 WBC (Bld)Basophils/100 leukocytes in Blood by Manual count0.2-2.0 [facility] HospitalEosinophils/100 WBC Manual cnt (Bld)on 02-26-6971Pfpdrlddbfj/100 WBC (Bld)Eosinophils/100 leukocytes in Blood by Manual count0.9-7.0[facility] HospitalErythrocyte distribution width Auto (RBC) [Ratio]on 39-58-3924Jbyqbfvnqci distribution width (RBC) [Ratio] Erythrocyte distribution width [Ratio] by Automated count11.0-15.0[facility] HospitalEstimated glomerular filtration rate (GFR) non- Americanon 32-53-4374HUL/1.73 sq M.predicted among non-blacks MDRD (S/P/Bld) [Vol rate/Area]Estimated glomerular filtration rate (GFR) non- Low>=60 mL/min/1.73m 2FMercy Health St. Rita's Medical CenterGlobulin Calc (S) [Mass/Vol]on 36-83-3235Nzxdhyxn (S) [Mass/Vol]Serum globulin measurement by calculation (mass/volume)[facility] HospitalHematocrit Auto (Bld) [Volume fraction]on 33-62-4315Rjwyipgdeg (Bld) [Volume fraction]Hematocrit [Volume Fraction] of Blood by Automated count36.0-48.0[facility] HospitalHemoglobin [Mass/volume] in Bloodon 20-29-9258Gjbkctekrf (Bld) [Mass/Vol] Hemoglobin [Mass/volume] in Blood12.0-16.0[facility] HospitalLon 06-15-2024L Specimen: [id number] Received: 06/16/24 Status: JEFFERY Lemon Num: [id number] Spec Type: Impression Subm Dr: Tri Ag DO Tissues: PATHPER Procedures: PATHREVIEW Age/ Patient Sex Location Account Attending Physician Kathy Washburn 83/F [facility] [id number] Tri Ag DO SPEC NUM: [id number] RECD: 06/16/24 STATUS: JEFFERY LEMON NUM: [id number] JESSICA: 06/15/24- SUBM DR: Tri Ag DO ENTERED: 06/16/[address]: Wilda,Lab SPEC TYPE: Impression DEPT: ZOE Lance ENTERED BY: [id number] RECV BY: [id number] ORDERED: PATHREVIEW ORDERED: PATHREVIEW Pathologist Review Peripheral blood smear evaluation: - Severe lymphocytosis with atypical lymphocytes and smudges consistent with CLL, flow cytometry if clinically indicated. - Red blood cell and Platelet: Unremarkable. CPT: 39339 Jose Angel Kc MD 06/16/24 Specimen: [id number] Received: 06/16/24 Status: JEFFERY Argenis Num: [id number] Spec Type: Impression Subm Dr: Tri Ag DO Tissues: PATHPER Procedures: PATHREVIEW Patient: Kathy Washburn [id number] (Continued) Signed (signature on file) Jose Angel Kc MD 06/16/24 1635Normal The [facility] Physician GroupLaboratory - Chemistry and Chemistry - challengeon 79-22-6669Frnmijx [Mass/Vol]3.5 g/dL3.4-5.0[facility] HospitalALP [Catalytic activity/Vol]103 U/B56-227WqoaxrpibOhio State East HospitalALT [Catalytic activity/Vol]34 U/U19-38GvzxyubkoOhio State East HospitalAST [Catalytic activity/Vol]25 U/V02-26TaptofqnmOhio State East HospitalBilirubin [Mass/Vol]0.3 mg/dL0.2-1.0[facility] HospitalCalcium [Mass/Vol]9.1 mg/dL8.5-10.1FMercy Health St. Rita's Medical CenterChloride [Moles/Vol]108 mmol/L Ykmz60-075KwkgeebleOhio State East HospitalCO2 [Moles/Vol]28.4 mmol/L21.0-32.0 [facility] HospitalCreatinine [Mass/Vol]1.42 mg/dLHigh0.55-1.02 [facility] HospitalGFR/1.73 sq M.predicted MDRD (S/P/Bld) [Vol rate/Area]43 mL/min/{1.73_m2}Low>=60 mL/min/1.73m 2FMercy Health St. Rita's Medical CenterGlucose [Mass/Vol]140 mg/mOCotr29-137RhulrsttsOhio State East Hospital Potassium [Moles/Vol]4.3 mmol/L3.5-5.1FMercy Health St. Rita's Medical CenterProtein [Mass/Vol]6.9 g/dL6.4-8.2FProMedica Toledo Hospitalodium [Moles/Vol]143 mmol/T779-515YodfevsdrOhio State East HospitalUrea nitrogen [Mass/Vol]31.0 mg/dL High7.0-18.0[facility] HospitalUrea nitrogen/Creatinine [Mass ratio]21.8 mg/mgOhio State East HospitalLaboratory - Hematology and Cell countson 56-35-8488Htwrpztlluh/100 WBC (Bld)54.0 %20.5-60.0[facility] HospitalMonocytes/100 WBC (Bld)0.0 %Low1.7-12.0[facility] HospitalLeukocytes [#/volume] corrected for nucleated erythrocytes in Blood by Automated counon 55-75-4663VKO corrected for nucl RBC Auto (Bld) [#/Vol]Leukocytes [#/volume] corrected for nucleated erythrocytes in Blood by Automated counHigh4.0-11.0[facility] HospitalH Auto (RBC) [Entitic mass]on 18-77-3749RYL (RBC) [Entitic mass]MCH [Entitic mass] by Automated count26.7-34.0[facility] HospitalMCHC Auto (RBC) [Mass/Vol]on 67-92-8573SNFB (RBC) [Mass/Vol]MCHC [Mass/volume] by Automated count29.9-35.2FMercy Health St. Rita's Medical CenterMCV Auto (RBC) [Entitic vol]on 82-48-6671TTZ (RBC) [Entitic vol]MCV [Entitic volume] by Automated count 81.0-99.0[facility] HospitalNo Panel Informationon 06-15-2024 Absolute Basophils (Manual)0.22 10 3/uLHigh0.00-0.10[facility] HospitalAdd Manual DifferentialSee commentOhio State East HospitalComment on above:SEE SCANNED REPORTEosinophils # (Manual)0.44 10 3/uL0.00-0.70[facility] HospitalLymphocytes # (Manual)11.88 10 3/uLHigh1.20-3.80[facility] HospitalMonocytes # (Manual)0.00 10 3/uLLow0.30-0.80[facility] HospitalReactive Lymphocytes1.76[facility] Reactive Lymphocytes8.0 %Cleveland Clinicegmented Neutrophils # (Manual)7.70 10 3/uLHigh1.4-6.5FMercy Health St. Rita's Medical CenterPlatelet mean volume Auto (Bld) [Entitic vol]on 54-17-4138Tctwpnwb mean volume (Bld) [Entitic vol]Platelet mean volume [Entitic volume] in Blood by Automated count9.5-13.5 [facility] HospitalPlatelets Auto (Bld) [#/Vol]on 06-15-2024 Platelets (Bld) [#/Vol]Platelets [#/volume] in Blood by Automated ynokh230-827 [facility] HospitalRBC Auto (Bld) [#/Vol]on 81-89-5773MUD (Bld) [#/Vol]Erythrocytes [#/volume] in Blood by Automated count4.20-5.40C[facility] Clinicegmented neutrophils/100 WBC Manual cnt (Bld)on 08-35-6911Ulcrzbmto neutrophils/100 WBC (Bld)Manual blood segmented neutrophils/100 lmsxehjukwDrx56.0-75.0C[facility] Clinicerum or plasma albumin/globulin mass ratioon 18-07-8010Vnbpdwg/Globulin [Mass ratio] Serum or plasma albumin/globulin mass ratioOhio State East Hospital Serum or plasma anion gap determinationon 63-37-3472Tctqy gap [Moles/Vol]Serum or plasma anion gap determinationCleveland Clinicmudge cell detectionon 76-90-5271Jcnfbc cells LM Ql (Bld)Smudge cell detectionOhio State East HospitalBasophils Auto (Bld) [#/Vol]on 65-98-5414Ncvuivrtp (Bld) [#/Vol]Automated basophil count<0.11[facility] Basophils/100 WBC Auto (Bld)on 43-68-4349Kaavtyrie/100 WBC (Bld)Automated basophil %[facility] HospitalBlood manual differential comment interpretation narrativeon 63-43-5582Aecuuh differential comment Himanshu (Bld) [Interp]Blood manual differential comment interpretation narrativeOhio State East HospitalCBC W Auto Differential panel (Bld)on 05-00-8259Bpiabbqmv (Bld) [#/Vol]0.00 10*3/uLNormal<0.11COhioHealth O'Blen[facility] Hospital on above: Order Comment: Specimen Type: BLOOD SPECIMEN Ordering Facility: [facility] Address: [address] [place], [place] [address]Performed By: #### [id number] #### [facility] CLIA [id number] [address] [place] [address] LAB CLIA [id number] [address] [place] [address] [place] STATES OF AMERICABasophils/100 WBC (Bld)0.0 % NormalWilson [facility] on above:Order Comment: Specimen Type: BLOOD SPECIMEN Ordering Facility: [facility] Address: [address] [place], [place] [address]Performed By: #### [id number] #### [facility] CLIA [id number] [address] [place] [address] LAB CLIA [id number] [address] [place] [address] [place] OF AMERICADifferential cell count method Nom (Bld)ManualNormalCOhioHealth O'Bleness Hospital on above:Order Comment: Specimen Type: BLOOD SPECIMEN Ordering Facility: [facility] Address: [address] [place], [place] [address]Performed By: #### [id number] #### [facility] CLIA [id number] [address] [place] [address] LAB CLIA [id number] [address] [place] [address] [place] AMERICAEosinophils (Bld) [#/Vol] 0.19 10*3/uLNormal<0.46[facility] on above:Order Comment: Specimen Type: BLOOD SPECIMEN Ordering Facility: [facility] Address: [address] [place], [place] [address]Performed By: #### 12833-9 #### DANIELOKGRACEILA [facility] CLIA [id number] [address] [place] [address] LAB CLIA [id number] [address] [place] [address] [place] OF AMERICAEosinophils/100 WBC (Bld)1.0 %NormalWilson [facility] on above:Order Comment: Specimen Type: BLOOD SPECIMEN Ordering Facility: [facility] Address: [address] [place], [place] [address]Performed By: #### 88168-8 #### DANIELOKGRACIELA [facility] CLIA [id number] [address] [place] [address] LAB CLIA [id number] [address] [place] [address] [place] AMERICAErythrocyte distribution width (RBC) [Ratio]14.2 %Gnwmhf51.5-15.0[facility] on above:Order Comment: Specimen Type: BLOOD SPECIMEN Ordering Facility: [facility] Address: [address] [place], [place] [address]Performed By: #### 48476-5 #### DANIELOKGRACIELA [facility] CLIA [id number] [address] [place] [address] LAB CLIA [id number] [address] [place] [address] [place] AMERICAHematocrit (Bld) [Volume fraction]38.4 %Rhabch20.0-46.0[facility] on above:Order Comment: Specimen Type: BLOOD SPECIMEN Ordering Facility: [facility] Address: [address] [place], [place] [address]Performed By: #### 10867-2 #### [facility]EL[facility] CLIA [id number] [address] [place] [address] LAB CLIA [id number] [address] [place] [address] [place] AMERICAHemoglobin (Bld) [Mass/Vol] 12.7 g/uHFraquh28.5-15.5COhio[facility] on above:Order Comment: Specimen Type: BLOOD SPECIMEN Ordering Facility: [facility] Address: [address] [place], [place] [address]Performed By: #### 92760-6 #### EDMUNDO [facility] CLIA [id number] [address] [place] [address] LAB CLIA [id number] [address] [place] [address] [place] OF AMERICALymphocytes (Bld) [#/Vol] 14.61 10*3/uLHigh1.00-4.00[facility] on above:Order Comment: Specimen Type: BLOOD SPECIMEN Ordering Facility: [facility] Address: [address] [place], [place] [address]Performed By: #### 17197-0 #### EDMUNDO [facility] CLIA [id number] [address] [place] [address] LAB CLIA [id number] [address] [place], [place] [address] [place] OF AMERICALymphocytes/100 WBC (Bld) 76.0 %Normal[address] [facility] on above:Order Comment: Specimen Type: BLOOD SPECIMEN Ordering Facility: [facility] Address: [address] [place], [place] [address]Performed By: #### 30670-8 #### EDMUNDO [facility] CLIA [id number] [address] [place] [address] LAB CLIA [id number] [address] [place] [address] [place] AMERICAMCH (RBC) [Entitic mass]30.[address]23[address]0-34[address]0[facility] on above:Order Comment: Specimen Type: BLOOD SPECIMEN Ordering Facility: [facility] Address: [address] [place], [place] [address]Performed By: #### 57968-4 #### JACEYGRACIELA [facility] CLIA [id number] [address] [place] [address] LAB CLIA [id number] [address] [place] [address] [place] AMERICAMCHC (RBC) [Mass/Vol]33.1 g/eAThbvqs51.5-36.0[facility] on above:Order Comment: Specimen Type: BLOOD SPECIMEN Ordering Facility: [facility] Address: [address] [place], [place] [address]Performed By: #### 34834-0 #### [facility]GRACIEL[facility] CLIA [id number] [address] [place] [address] LAB CLIA [id number] [address] [place] [address] [place] AMERICAMCV (RBC) [Entitic vol]90.[address]0-[address]0[facility] on above:Order Comment: Specimen Type: BLOOD SPECIMEN Ordering Facility: [facility] Address: [address] [place], [place] [address]Performed By: #### 70934-5 #### [facility] CLIA [id number] [address] [place] [address] LAB CLIA [id number] [address] [place] [address] [place] AMERICAMonocytes (Bld) [#/Vol]0.19 10*3/uLNormal<0.87[facility] on above:Order Comment: Specimen Type: BLOOD SPECIMEN Ordering Facility: [facility] Address: [address] [place], [place] [address]Performed By: #### 70583-0 #### [facility] CLIA [id number] [address] [place] [address] LAB CLIA [id number] [address] [place] [address] [place] AMERICAMonocytes/100 WBC (Bld)1.0 % [address] [facility] on above:Order Comment: Specimen Type: BLOOD SPECIMEN Ordering Facility: [facility] Address: [address] [place], [place] [address]Performed By: #### 36196-6 #### EDMUNDO [facility] CLIA [id number] [address] [place] [address] LAB CLIA [id number] [address] [place] [address] [place] AMERICANeutrophils (Bld) [#/Vol] 4.23 10*3/uLNormal1.45-7.50[facility] on above:Order Comment: Specimen Type: BLOOD SPECIMEN Ordering Facility: [facility] Address: [address] [place], [place] [address]Performed By: #### 83368-3 #### DANIELOKGRACIELA [facility] CLIA [id number] [address] [place] [address] LAB CLIA [id number] [address] [place] [address] [place] AMERICANeutrophils/100 WBC (Bld) 22.0 %Normal[address] [facility] on above:Order Comment: Specimen Type: BLOOD SPECIMEN Ordering Facility: [facility] Address: [address] [place], [place] [address]Performed By: #### 82866-9 #### [facility]ITALGRACIELA [facility] CLIA [id number] [address] [place] [address] LAB CLIA [id number] [address] [place] [address] [place] AMERICANucleated RBC (Bld) [#/Vol] 10*3/uLNormal<0.01[facility] on above:Order Comment: Specimen Type: BLOOD SPECIMEN Ordering Facility: [facility] Address: [address] [place], [place] [address]Performed By: #### 13559-7 #### [facility] CLIA [id number] [address] [place] [address] LAB CLIA [id number] [address] [place] [address] [place] AMERICANucleated RBC/100 WBC (Bld) [Ratio]0.0 /100 WBCNormalCOhioHealth [facility] on above:Order Comment: Specimen Type: BLOOD SPECIMEN Ordering Facility: [facility] Address: [address] [place], [place] [address]Performed By: #### 39173-9 #### [facility] CLIA [id number] [address] [place] [address] LAB CLIA [id number] [address] [place] [address] [place] OF AMERICAOvalocytes LM Ql (Bld)Few NormalWilson [address] [facility] on above:Order Comment: Specimen Type: BLOOD SPECIMEN Ordering Facility: [facility] Address: [address] [place], [place] [address]Performed By: #### 00454-7 #### [facility] CLIA [id number] [address] [place] [address] LAB CLIA [id number] [address] [place] [address] [place] AMERICAPlatelet mean volume (Bld) [Entitic vol]10.4 fLNormal9.0-12.7COhioHealth [facility] on above: Order Comment: Specimen Type: BLOOD SPECIMEN Ordering Facility: [facility] Address: [address] [place], [place] [address]Performed By: #### 13480-2 #### [facility] CLIA [id number] [address] [place] [address] LAB CLIA [id number] [address] [place] [address] [place] AMERICAPlatelets (Bld) [#/Vol]244 10*3/nUBoamvm719-844IeiuocoftWilson [address] [facility] on above:Order Comment: Specimen Type: BLOOD SPECIMEN Ordering Facility: [facility] Address: [address] [place], [place] [address]Performed By: #### 95543-6 #### EDMUNDO [facility] CLIA [id number] [address] [place] [address] LAB CLIA [id number] [address] [place] [address] [place] AMERICAPlatelets Estimate (Bld) [#/Vol]AdequateNormalCOhioHealth O'Bleness Hospital on above:Order Comment: Specimen Type: BLOOD SPECIMEN Ordering Facility: [facility] Address: [address] [place], [place] [address]Performed By: #### 81280-0 #### [facility] CLIA [id number] [address] [place] [address] LAB CLIA [id number] [address] [place] [address] [place] AMERICAPolychromasia LM Ql (Bld) SlightNormalCOhioHealth [facility]len[facility] on above:Order Comment: Specimen Type: BLOOD SPECIMEN Ordering Facility: [facility] Address: [address] [place], [place] [address]Performed By: #### 16749-0 #### [facility] CLIA [id number] [address] [place] [address] LAB CLIA [id number] [address] [place] [address] [place] AMERICARBC (Bld) [#/Vol]4.23 10*6/uLNormal3.90-5.20[facility] on above:Order Comment: Specimen Type: BLOOD SPECIMEN Ordering Facility: [facility] Address: [address] [place], [place] [address]Performed By: #### 38524-0 #### [facility] CLIA [id number] [address] [place] [address] LAB CLIA [id number] [address] [place] [address] [place] AMERICARED CELL MORPHReviewed: see results of individual morphologiesNormalCOhioHealth [facility] on above:Order Comment: Specimen Type: BLOOD SPECIMEN Ordering Facility: [facility] Address: [address] [place], [place] [address]Performed By: #### 83059-4 #### EDMUNDO [facility] CLIA [id number] [address] [place] [address] LAB CLIA [id number] [address] [place] [address] [place] AMERICAWBC (Bld) [#/Vol]19.22 10*3/uLHigh3.70-11.00[facility] on above:Order Comment: Specimen Type: BLOOD SPECIMEN Ordering Facility: [facility] Address: [address] [place], [place] [address]Result Comment: No clot detected.Results checked and verified.Performed By: #### 22115-5 #### EDMUNDO [facility] CLIA [id number] [address] [place] [address] LAB CLIA [id number] [address] [place] [address] [place] AMERICACNOVSPon 20-34-1544ZWIHUT Visit (SP) Office (HEMASA) KATHY WASHBURN ([id number]) 1940 F Date Time Provider Department 05/26/24 2:00 PM CHAD FREITAS During your visit today, we recorded the following information about you: Temperature Pulse Respiration Blood pressure 97 degrees 70/minute 16/minute 92/51 Weight Height 105.3 kg 1.727 m Chad Freitas MD 05/26/2024 2:41 PM Signed PATIENT NAME: Kathy Washburn CLINIC NO.: [id number] ATTENDING PHYSICIAN: Chad Freitas MD DATE OF [...] Did mammogram last week at [facility]. 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 PAST MEDICAL HISTORY Diagnosis Date Depression Diabetes [...] Ref Range Status 05/26 (more content not included)...Normal[facility] Comprehensive metabolic 2000 panelOrdered By: Malka Galvez on 09-58-9871Qxhxici [Mass/Vol]4.1 g/dL3.9 - 4.9 g/dLEast Stroudsburg ClinicALP [Catalytic activity/Vol]107 U/L34 - 123 U/LCleveland ClinicALT [Catalytic activity/Vol]21 U/L7 - 38 U/L [place] ClinicAnion gap [Moles/Vol]11 mmol/L8 - 15 mmol/LCleveland ClinicAST [Catalytic activity/Vol]23 U/L13 - 35 U/LCleveland ClinicBilirubin [Mass/Vol]0.2 mg/dL0.2 - 1.3 mg/dLEast Stroudsburg ClinicCalcium [Mass/Vol]9.3 mg/dL8.5 - 10.2 mg/dL [place] ClinicChloride [Moles/Vol]105 mmol/L98 - 107 mmol/LCleveland ClinicCO2 [Moles/Vol]26 mmol/L22 - 30 mmol/LCleveland ClinicCreatinine [Mass/Vol]1.20 mg/dLHigh0.58 - 0.96 mg/dLEast Stroudsburg ClinicGFR/1.73 sq M.predicted among non- blacks MDRD [...] eGFRmay not accurately reflect actual GFR.Glucose [Mass/Vol]231 mg/qEYclj85 - 99 mg/dLGenesis Hospital on above:The [place] Diabetes Association (ADA) provides guidance for cutoff [...] Standards of Medical Care in Diabetes 2016, [place] [employer]. Diabetes Care. 2016.39(Suppl 1). Interpretation and review of laboratory resultsAbnormalCleveland ClinicPotassium [Moles/Vol]5.3 mmol/LHigh3.7 - 5.1 mmol/LClevelcritical access hospital ClinicProtein [Mass/Vol]6.9 g/dL6.3 - 8.0 g/dLMercy Health Clermont Hospitalodium [Moles/Vol]142 mmol/L136 - 144 mmol/L TrihealthUrea nitrogen [Mass/Vol]36 mg/dLHigh7 - 21 mg/dLRegency Hospital CompanyComprehensive metabolic 2000 panelon 73-33-7899Aobrvib [Mass/Vol]4.1 g/dLNormal3.9-4.9COhioHealth [facility] on above:Order Comment: Specimen Type: BLOOD SPECIMEN Ordering Facility: [facility] Address: [address] [place] [address]Zxnkjgzap By: #### 2532-0, 57518-2 #### [facility] CLIA [id number] [address] [place] [address] 14964MHX [Catalytic activity/Vol]107 U/LAufqxj53-038PfgjoaxwcWilson [address] [facility] on above:Order Comment: Specimen Type: BLOOD SPECIMEN Ordering Facility: [facility] Address: [address] [place], [place] [address]Performed By: #### 2532-0, 22864-7 #### [facility] CLIA [id number] [address] [place] [address] 49148EDZ [Catalytic activity/Vol]21 U/LNormal7-38[facility] on above:Order Comment: Specimen Type: BLOOD SPECIMEN Ordering Facility: [facility] Address: [address] [place], [place] [address]Performed By: #### 2532-0, 40104-2 #### [facility] CLIA [id number] [address] [place] [address] 34027Kjmyx gap [Moles/Vol]11 mmol/LNormal8-15[facility] on above:Order Comment: Specimen Type: BLOOD SPECIMEN Ordering Facility: [facility] Address: [address] [place], [place] [address]Performed By: #### 2532-0, 21129-1 #### [facility] CLIA [id number] [address] [place] [address] 80087WAP [Catalytic activity/Vol]23 U/WVcoafm73-45FgeimtsjeWilson [address] [facility] on above:Order Comment: Specimen Type: BLOOD SPECIMEN Ordering Facility: [facility] Address: [address] [place], [place] [address]Performed By: #### 2532-0, 02670-2 #### [facility] CLIA [id number] [address] [place] [address] 74481Ywotvapcx [Mass/Vol]0.2 mg/dLNormal0.2-1.3COhioHealth O'Blen[facility] on above:Order Comment: Specimen Type: BLOOD SPECIMEN Ordering Facility: [facility] Address: [address] [place], [place] [address]Performed By: #### 2532-0, 50036-8 #### [facility] CLIA [id number] [address] [place] [address] 06273Rnzhred [Mass/Vol]9.3 mg/dLNormal8.5-10.2COhioHealth O'[facility]len[facility] on above:Order Comment: Specimen Type: BLOOD SPECIMEN Ordering Facility: [facility] Address: [address] [place], [place] [address]Performed By: #### 2532-0, 99282-1 #### [facility] CLIA [id number] [address] [place] [address] 83117Iktkjvpp [Moles/Vol]105 mmol/DPyhvji26-386PauhivwvlWilson [address] [facility] on above:Order Comment: Specimen Type: BLOOD SPECIMEN Ordering Facility: [facility] Address: [address] [place], [place] [address]Performed By: #### 2532-0, 05855-2 #### [facility] CLIA [id number] [address] [place] [address] 57055VB3 [Moles/Vol]26 mmol/TKualbb60-87SvuilpwgyAccess Hospital [facility] Comment on above:Order Comment: Specimen Type: BLOOD SPECIMEN Ordering Facility: [facility] Address: [address] [place], [place] [address]Performed By: #### 2532-0, 68648-7 #### [facility] CLIA [id number] [address] [place] [address] 32884Kxyxwziwqh [Mass/Vol]1.20 mg/dLHigh0.58-0.96[facility] on above:Order Comment: Specimen Type: BLOOD SPECIMEN Ordering Facility: [facility] Address: [address] [place], [place] [address]Performed By: #### 2532-0, 48338-8 #### [facility] CLIA [id number] [address] [place] [address] 664[address]Qlcglygybr and Glomerular filtration rate.predicted panel (S/P/Bld)46 mL/min/1.73m???Low>=60[facility] on above: Order Comment: Specimen Type: BLOOD SPECIMEN Ordering Facility: [facility] Address: [address] [place] [address]Iwwjbr Comment: Estimated Glomerular Filtration Rate (eGFR) is [...] accurately reflect actual GFR.Performed By: #### 2532-0, 40188-5 #### [facility] CLIA [id number] [address] [place], [place] [address]Bdpxhmu [Mass/Vol]231 mg/wERdvw27-76VbmocpfiqAccess Hospital [place] Comment on above:Order Comment: Specimen Type: BLOOD SPECIMEN Ordering Facility: [facility] Address: [address] [place] [address] 135[address]Liedcp Comment: The [place] Diabetes Association (ADA) provides guidance for cutoff [...] Standards of Medical Care in Diabetes 2016, [place] [employer]. Diabetes Care. 2016.39(Suppl 1).Performed By: #### 2532-0, 22182-5 #### [facility] CLIA [id number] [address] [place], [place] [address]Iinxbrxqe [Moles/Vol]5.3 mmol/LHigh3.7-5.1COur Lady of Mercy Hospital - AndersonComment on above:Order Comment: Specimen Type: BLOOD SPECIMEN Ordering Facility: [facility] Address: [address] [place], [place] [address]Fykaudjjd By: #### 2532-0, 17175-7 #### [facility] CLIA [id number] [address] [place], [place] [address]Ipaqpcr [Mass/Vol]6.9 g/dLNormal6.3-8.0[facility] on above:Order Comment: Specimen Type: BLOOD SPECIMEN Ordering Facility: [facility] Address: [address] [place], [place] [address]Performed By: #### 2532-0, 33682-4 #### [facility] CLIA [id number] [address] [place], [place] [address]Uetgia [Moles/Vol]142 mmol/NDjprlo823-622DmtprznamWilson [address] [facility] on above:Order Comment: Specimen Type: BLOOD SPECIMEN Ordering Facility: [facility] Address: [address] [place], [place] [address]Performed By: #### 2532-0, 51293-1 #### [facility] CLIA [id number] [address] [place] [address]Odgl nitrogen [Mass/Vol]36 mg/dLHigh7-21[facility] on above:Order Comment: Specimen Type: BLOOD SPECIMEN Ordering Facility: [facility] Address: [address] [place], [place] [address]Performed By: #### 2532-0, 80405-4 #### [facility] CLIA [id number] [address] [place] [address] 58[address]Xvmjciwlqby/100 WBC Auto (Bld)on 71-25-9292Yopiiweqbzp/100 WBC (Bld)Automated eosinophil %[facility] HospitalErythrocyte distribution width Auto (RBC) [Ratio]on 15-73-8682Rkjlwmmcutv distribution width (RBC) [Ratio]Erythrocyte distribution width [Ratio] by Automated count11.5-15.0 [facility] HospitalHematocrit Auto (Bld) [Volume fraction]on 69-81-6306Njliwqjrqc (Bld) [Volume fraction]Hematocrit [Volume Fraction] of Blood by Automated count36.0-46.0[facility] HospitalHemoglobin [Mass/volume] in Bloodon 84-45-6943Ogunmcmhgc (Bld) [Mass/Vol]Hemoglobin [Mass/volume] in Blood11.5-15.5FMercy Health St. Rita's Medical CenterLACTATE DEHYDROGENASEon 04-62-2878BNV [Catalytic activity/Vol]184 U/L135 - 214 U/L [facility] SerPl-cCncon 51-39-6503SJM [Catalytic activity/Vol]184 U/L Hqxbrc584-495TzldmrbxnAccess Hospital DaytonComment on above:Order Comment: Specimen Type: BLOOD SPECIMEN Ordering Facility: [facility] Address: [address] [place] [address]Performed By: #### 2532-0, 58844-4 #### [facility] CLIA [id number] [address] [place] [address] 81228FDP [Catalytic activity/Vol]on 82-94-7184Wukbmjesycnikk and review of laboratory resultsNormalCKettering Health Miamisburgoratory - Chemistry and Chemistry - challengeon 36-45-6408Lrggqmz [Mass/Vol]4.1 g/dL 3.9-4.9[facility] HospitalALP [Catalytic activity/Vol]107 U/L 34-123[facility] HospitalALT [Catalytic activity/Vol]21 U/L7-38 [facility] HospitalAST [Catalytic activity/Vol]23 U/L13-35 [facility] HospitalBilirubin [Mass/Vol]0.2 mg/dL0.2-1.3FMercy Health St. Rita's Medical CenterCalcium [Mass/Vol]9.3 mg/dL8.5-10.2FMercy Health St. Rita's Medical CenterChloride [Moles/Vol]105 mmol/C08-897FyazblyjxOhio State East HospitalCO2 [Moles/Vol]26 mmol/W11-25HlegakbhxOhio State East HospitalCreatinine [Mass/Vol]1.20 mg/dLHigh0.58-0.96[facility] HospitalGlucose [Mass/Vol]231 mg/mEBycq96-84CyihberfkOhio State East HospitalComment on above: The [place] Diabetes Association (ADA) provides guidance for cutoff [...] diabetes.Reference: Standardsof Medical Care in Diabetes 2016, [place] [employer]. Diabetes Care. 2016.39(Suppl 1).LDH [Catalytic activity/Vol]184 U/W679-500UogoqtiddOhio State East HospitalPotassium [Moles/Vol]5.3 mmol/LHigh3.7-5.1FProMedica Toledo Hospitalodium [Moles/Vol]142 mmol/N167-993AbxifqjanOhio State East HospitalUrea nitrogen [Mass/Vol]36 mg/dLHigh7-21[facility] Laboratory - Hematology and Cell countson 01-72-8971Wjthmjzqgrs (Bld) [#/Vol] 0.19 10*3/uL<0.46[facility] HospitalLeukocytes [#/volume] corrected for nucleated erythrocytes in Blood by Automated counon 03-02-8447MXJ corrected for nucl RBC Auto (Bld) [#/Vol]Leukocytes [#/volume] corrected for nucleated erythrocytes in Blood by Automated counHigh3.70-11.00[facility] HospitalComment on above:No clot detected.Results checked and verified.Lymphocytes Auto (Bld) [#/Vol]on 84-89-7525Expcxlknmzw (Bld) [#/Vol] Lymphocytes [#/volume] in Blood by Automated countHigh1.00-4.00[facility] HospitalLymphocytes/100 WBC Auto (Bld)on 05-26-2024 Lymphocytes/100 WBC (Bld)Lymphocytes/100 leukocytes in Blood by Automated count [facility] HospitalMCH Auto (RBC) [Entitic mass]on 85-22-3845XUM (RBC) [Entitic mass]MCH [Entitic mass] by Automated count26.0-34.0[facility] HospitalMCHC Auto (RBC) [Mass/Vol]on 57-37-2389OFIW (RBC) [Mass/Vol]MCHC [Mass/volume] by Automated count30.5-36.0[facility] HospitalMCV Auto (RBC) [Entitic vol]on 35-57-9142XJD (RBC) [Entitic vol] MCV [Entitic volume] by Automated count80.0-100.0[facility] HospitalMonocytes Auto (Bld) [#/Vol]on 82-71-6173Pwhybfwvi (Bld) [#/Vol]Automated blood monocyte count<0.87[facility] HospitalMonocytes/100 WBC Auto (Bld)on 88-46-8211Nmelkdgft/100 WBC (Bld)Automated monocyte %[facility] HospitalNeutrophils Auto (Bld) [#/Vol]on 06-13-9288Nafvaamhrem (Bld) [#/Vol]Neutrophils [#/volume] in Blood by Automated count1.45-7.50[facility] HospitalNeutrophils/100 WBC Auto (Bld)on 05-26-2024 Neutrophils/100 WBC (Bld)Automated neutrophil %[facility] No Panel Informationon 56-26-6619Fayxoymey GFR (CKD-EPI)46 mL/min/1.73m???Low >=60[facility] HospitalComment on above:Estimated Glomerular Filtration Rate (eGFR) [...] GFR.Normal RBC MorphologyReviewed: see results of individual morphologiesOhio State East HospitalNucleated RBC Auto (Bld) [#/Vol]on 73-23-9466Htgvfyvij RBC (Bld) [#/Vol]Nucleated erythrocytes [#/volume] in Blood by Automated count<0.01[facility] Nucleated erythrocytes [Presence] in Blood by Automated counton 05-26-2024 Nucleated RBC Auto Ql (Bld)Nucleated erythrocytes [Presence] in Blood by Automated countOhio State East HospitalOvalocyte detectionon 11-13-2024 Ovalocytes LM Ql (Bld)Ovalocyte detectionOhio State East Hospital Platelet adequacy [Presence] in Blood by Light microscopyon 12-48-4920Vdkubyhqw LM Ql (Bld)Platelet adequacy [Presence] in Blood by Light microscopyOhio State East HospitalPlatelet mean volume Auto (Bld) [Entitic vol]on 60-35-2555Qvdfwvli mean volume (Bld) [Entitic vol]Platelet mean volume [Entitic volume] in Blood by Automated count9.0-12.7FM[facility] Platelets Auto (Bld) [#/Vol]on 08-69-5235Zdkiqumdu (Bld) [#/Vol]Platelets [#/volume] in Blood by Automated cucon507-887BxyviuuxiOhio State East Hospital Polychromasia [Presence] in Blood by Light microscopyon 58-64-8498Jjgttunakgtzy LM Ql (Bld)Polychromasia [Presence] in Blood by Light microscopyOhio State East HospitalProtein [Mass/volume] in Serum or Plasmaon 05-26-2024 Protein [Mass/Vol]Protein [Mass/volume] in Serum or Plasma6.3-8.0[facility] HospitalRBC Auto (Bld) [#/Vol]on 19-20-0346XFB (Bld) [#/Vol] Erythrocytes [#/volume] in Blood by Automated count3.90-5.20Cleveland Clinicerum or plasma anion gap determinationon 92-92-2293Uazqm gap [Moles/Vol]Serum or plasma anion gap determination8-15[facility] HospitalX-ray reportOrdered By: Stanford Arndt on 76-14-8255Fqabt reportAV[facility] [address] [place] [id number] XRay Report Signed Patient: Kathy Washburn MR#: [id number] : 1940 Acct:[id number] Age/Sex: 83 / F ADM Date: 4 Loc: XD Room: Type: [facility] Attending Dr: Ayanna Vicente DO Copies to: Ayanna Vicente DO~ Ordering Provider: Ayanna Vicente DO Date of Service: 05/26/24 XR/XR hip LT min 2V(w/wo pelvis)*: M25.552 - Pain in left hip ([id number]) XR/XR knee LT 4V*: M25.552 - Pain [...] Stanford Arndt M.D.05/26/2024 4:55 PM Dictation Location: [place] [address] Transcribed By: [facility] 05/26/241654 Dictated By: Stanford Arndt DO 05/26/241652 Signed By: 05/26/24 1655 [facility] HospitalXR knee LT 4V*on 48-09-5897UW knee LT 4V* [facility] [place] [address] XRay Report Signed Patient: Kathy Washburn MR#: [id number] : 1940 Acct:[id number] Age/Sex: 83 / F ADM Date: 05/26/24 Loc: XD Room: Type: [facility] Attending Dr: Ayanna Vicente DO Copies to: Ayanna Vicente DO Ordering Provider: Ayanna Vicente DO Date of Service: 05/26/24 XR/XR hip LT min 2V(w/wo pelvis)*: M25.552 - Pain in left hip ([id number]) XR/XR knee LT 4V*: M25.552 - Pain [...] Stanford Arndt M.D.05/26/2024 4:55 PM Dictation Location: [place] [address] Transcribed By: [facility] 05/26/241654 Dictated By: Stanford Arndt DO 05/26/241652 Signed By: 05/26/241654[facility] Physician GroupCNOVon 49-43-1329ENSPNasffm Visit (RHEUAV) KATHY WASHBURN ([id number]) 1940 F Date Time Provider Department 05/17/24 1:00 PM ZOHAIB GERMAN During your visit today, we recorded the following information about you: Pulse Blood pressure Weight Height 62/minute 117/75 103.4 kg 1.727 m Zohaib German MD 05/17/2024 1:34 PM Signed [facility] Date of Service: 05/17/2024 Patient: Kathy Washburn Medical Record: [id number] Primary Care Physician: Ayanna Vicente DO Last Rheumatology visit: None at [facility] Referring Provider: No referring provider defined for [...] Used Substance Use Topics (more content not included)...NormalAccess Hospital DaytonAlanine aminotransferase [Enzymatic activity/volume] in Serum or Plasma Ordered By: Ayanna Vicente on 75-80-9028LVV [Catalytic activity/Vol]25 U/L [facility] HospitalALT [Catalytic activity/Vol]Alanine aminotransferase [Enzymatic activity/volume] in Serum or PlasmaOhio State East HospitalAlbumin [Mass/volume] in Serum or Plasma by Bromocresol green (BCG) dye binding methoOrdered By: Ayanna Vicente on 84-51-7682Cbyrcwe BCG dye [Mass/Vol]4.1 g/dL3.5-5.7FMercy Health St. Rita's Medical CenterAlbumin BCG dye [Mass/Vol]Albumin [Mass/volume] in Serum or Plasma by Bromocresol green (BCG) dye binding metho3.5-5.7FMercy Health St. Rita's Medical CenterAlkaline phosphatase [Enzymatic activity/volume] in Serum or PlasmaOrdered By: Ayanna Vicente on 16-95-9201FUK [Catalytic activity/Vol]89 U/O90-525CkihhzqjhOhio State East HospitalALP [Catalytic activity/Vol]Alkaline phosphatase [Enzymatic activity/volume] in Serum or Vaxvue98-540QfawnwctzOhio State East Hospital Appearance of UrineOrdered By: Ayanna Vicente on 44-91-4958Lilfdoylge (U)Urine appearanceCleChillicothe HospitalAspartate aminotransferase [Enzymatic activity/volume] in Serum or PlasmaOrdered By: Ayanna Vicente on 42-19-2931DKG [Catalytic activity/Vol]23 U/D52-27JwvspupynOhio State East HospitalAST [Catalytic activity/Vol]Aspartate aminotransferase [Enzymatic activity/volume] in Serum or Crxiqp46-96WbqkabmugOhio State East Hospital Bacteria [Presence] in Urine sediment by Light microscopyOrdered By: Ayanna Vicente on 70-55-8621Ibpwzxka LM Ql (Urine sed)4+ [HPF]HighLancaster Municipal HospitalBacteria LM Ql (Urine sed)Bacteria [Presence] in Urine sediment by Light microscopyHighNone [facility] Bilirubin Test strip Ql (U)Ordered By: Ayanna Vicente on 74-95-1071Nrbfzlrdr Ql (U)NegativeNegativeOhio State East HospitalBilirubin Ql (U) Bilirubin.total [Presence] in Urine by Test stripNegativeOhio State East HospitalBilirubin.total [Mass/volume] in Serum or PlasmaOrdered By: Ayanna Vicente on 59-43-2486Qzwftpkzg [Mass/Vol]0.4 mg/dL0.3-1.0[facility] HospitalBilirubin [Mass/Vol]Bilirubin.total [Mass/volume] in Serum or Plasma0.3-1.0[facility] HospitalBlood estimated average glucose determination by estimation from glycated hemoglobinOrdered By: Ayanna Vicente on 99-60-9888Qbzszlc glucose Estimated from glycated hemoglobin (Bld) [Mass/Vol] Glucose mean value [Mass/volume] in Blood Estimated from glycated hemoglobin [facility] HospitalCalcium [Mass/volume] in Serum or PlasmaOrdered By: Ayanna Vicente on 07-14-7998Lheicqv [Mass/Vol]9.6 mg/dL8.6-10.3FMercy Health St. Rita's Medical CenterCalcium [Mass/Vol]Calcium [Mass/volume] in Serum or Plasma8.6-10.3FMercy Health St. Rita's Medical CenterCarbon dioxide, total [Moles/volume] in Serum or PlasmaOrdered By: Ayanna Vicente on 40-53-6341RZ3 [Moles/Vol]30.2 mmol/L21.0-31.0[facility] HospitalCO2 [Moles/Vol] Carbon dioxide, total [Moles/volume] in Serum or Djslly66.0-31.0[facility] HospitalChloride [Moles/volume] in Serum or PlasmaOrdered By: Ayanna Vicente on 10-31-0430Zcvrbjkv [Moles/Vol]105 mmol/R00-848WlcwxzowyOhio State East HospitalChloride [Moles/Vol]Chloride [Moles/volume] in Serum or Plasma 98-107[facility] HospitalCholesterol [Mass/volume] in Serum or PlasmaOrdered By: Ayanna Vicente on 61-03-5452Tlhannilxtc [Mass/Vol]134 mg/dLLow 140-200[facility] HospitalComment on above:Chol less than 200 mg/dl low riskChol 201-239 mg/dl borderline riskChol 240 mg/dl and greater high riskCholesterol [Mass/Vol]Cholesterol [Mass/volume] in Serum or OxqbbhQik649-026 [facility] HospitalComment on above:Chol less than 200 mg/dl low riskChol 201-239 mg/dl borderline riskChol 240 mg/dl and greater high risk Cholesterol in HDL [Mass/volume] in Serum or PlasmaOrdered By: Ayanna Vicente on 59-92-1255Anizgvfzbob in HDL [Mass/Vol]Serum or plasma high density lipoprotein (HDL) cholesterol nlskgjgjezg90-39AcnjlezpqOhio State East HospitalComment on above:HDL CHOL ATP-III CLASSIFICATION Cardiovascular RiskHDL > or equal to 60 mg/dL LOWHDL < 40 mg/dL HIGHCholesterol in LDL Calc [Mass/Vol]Ordered By: Ayanna Vicente on 71-04-9181Iauuwmtpwek in LDL [Mass/Vol]46 mg/dL0-100[facility] HospitalComment on above:LDL ATP III CLASSIFICATIONLDL less than 100 mg/dL OptimalLDL 100-129 mg/dL Near or above mabklpyFDK989-404 mg/dL Borderline highLDL 160-189 mg/dL HighLDL greater than 189 mg/dL Very highCholesterol in LDL [Mass/Vol]Cholesterol in LDL [Mass/volume] in Serum or Plasma by calculation 0-100[facility] HospitalComment on above:LDL ATP III CLASSIFICATIONLDL less than 100 mg/dL OptimalLDL 100-129 mg/dL Near or above qiziyogTCD494-590 mg/dL Borderline highLDL 160-189 mg/dL HighLDL greater than 189 mg/dL Very highCholesterol in VLDL Calc [Mass/Vol]Ordered By: Ayanna Vicente on 41-14-5371Vsphbxclydq in VLDL [Mass/Vol]47 mg/dLOhio State East HospitalCholesterol in VLDL [Mass/Vol]Cholesterol in VLDL [Mass/volume] in Serum or Plasma by calculationOhio State East HospitalColor Auto (U)Ordered By: Ayanna Vicente on 54-12-9588Ncruz (U)YellowYelOhioHealth Pickerington Methodist HospitalColor (U)Color of Urine by AutoYelOhioHealth Pickerington Methodist Hospital Creatinine [Mass/volume] in Serum or PlasmaOrdered By: Ayanna Vicente on 15-32-4592Xtxpsusyyi [Mass/Vol]1.08 mg/dL0.60-1.20[facility] HospitalCreatinine [Mass/Vol]Creatinine [Mass/volume] in Serum or Plasma0.60-1.20 [facility] HospitalCreatinine [Mass/volume] in UrineOrdered By: Ayanna Vicente on 54-95-9537Zgusgadydn (U) [Mass/Vol]93.00 mg/dLOhio State East HospitalComment on above:No reference range establishedCreatinine (U) [Mass/Vol]Creatinine [Mass/volume] in UrineOhio State East Hospital Comment on above:No reference range establishedEpithelial cells.squamous [#/area] in Urine sediment by Microscopy high power fieldOrdered By: Ayanna Vicente on 61-22-9254Vdjqjteldk cells.squamous LM.HPF (Urine sed) [#/Area]3-4 [HPF]High0-2FMercy Health St. Rita's Medical CenterEpithelial cells.squamous LM.HPF (Urine sed) [#/Area]Epithelial cells.squamous [#/area] in Urine sediment by Microscopy high power fieldHigh0-2FMercy Health St. Rita's Medical CenterErythrocytes [#/area] in Urine sediment by Microscopy high power fieldOrdered By: Ayanna Vicente on 80-87-4374GAT LM.HPF (Urine sed) [#/Area]0-1 [HPF]0-4FMercy Health St. Rita's Medical CenterRBC LM.HPF (Urine sed) [#/Area]Erythrocytes [#/area] in Urine sediment by Microscopy high power field0-4FMercy Health St. Rita's Medical CenterGlobulin Calc (S) [Mass/Vol]Ordered By: Ayanna Vicente on 91-44-3763Douurnuv (S) [Mass/Vol]2.7 g/dLOhio State East HospitalGlobulin (S) [Mass/Vol] Serum globulin measurement by calculation (mass/volume)[facility] HospitalGlucose [Mass/volume] in Serum or PlasmaOrdered By: Ayanna Vicente on 80-43-7698Ormghrr [Mass/Vol]129 mg/aHVaqf02-746WvooutjonOhio State East HospitalComment on above:ADA recommended reference rangeRandom Glucose Reference Range is dependent on time and content of last meal. Glucose of more than 200 mg/dL in a nonstressed, ambulatory subject supports the diagnosisof Diabetes Mellitus.Glucose [Mass/Vol]Glucose [Mass/volume] in Serum or FdtdaqAeph30-568 [facility] HospitalComment on above:ADA recommended reference rangeRandom Glucose Reference Range is dependent on time and content of last meal. Glucose of more than 200 mg/dL in a nonstressed, ambulatory subject supports the diagnosisof Diabetes Mellitus.Glucose [Mass/volume] in Urine by Test stripOrdered By: Ayanna Vicente on 31-60-3663Xolfwxz Test strip (U) [Mass/Vol]Normal mg/dLNoUniversity Hospitals Elyria Medical CenterGlucose Test strip (U) [Mass/Vol]Glucose [Mass/volume] in Urine by Test stripNoUniversity Hospitals Elyria Medical CenterGlucose mean value [Mass/volume] in Blood Estimated from glycated hemoglobinOrdered By: Ayanna Vicente on 40-01-8178Avfueme glucose Estimated from glycated hemoglobin (Bld) [Mass/Vol]194 mg/dLOhio State East HospitalHemoglobin A1c percentageOrdered By: Ayanna Vicente on 05-06-2024 HbA1c (Bld) [Mass fraction]8.4 %High4.3-5.6FMercy Health St. Rita's Medical Center Comment on above:Increased risk for diabetes: 5.7 - 6.4diabetes: >6.4glycemic control for adults with diabetes: <7.0Hemoglobin A1c/Hemoglobin.total in BloodOrdered By: Ayanna Vicente on 90-15-0257LcT7f (Bld) [Mass fraction]Hemoglobin A1c percentageHigh4.3-5.6FMercy Health St. Rita's Medical CenterComment on above: Increased risk for diabetes: 5.7 - 6.4diabetes: >6.4glycemic control for adults with diabetes: <7.0Hemoglobin Test strip Ql (U)Ordered By: Ayanna Vicente on 99-42-9084Pijcwskwnr Ql (U)NegativeNegSelect Medical [facility], [place] Hemoglobin Ql (U)Hemoglobin [Presence] in Urine by Test stripNegSelect Medical [facility] Clinic Rehabilitation Hospital, AvonHyaline casts LM.LPF (Urine sed) [#/Area]Ordered By: Ayanna Vicente on 86-55-2903Bzqwboe casts (Urine sed) [#/Area]5-9 [LPF]High0-1 [facility] HospitalHyaline casts (Urine sed) [#/Area]Hyaline casts [#/area] in Urine sediment by Microscopy low power fieldHigh0-1FMercy Health St. Rita's Medical CenterKetones Test strip Ql (U)Ordered By: Ayanna Vicente on 05-00-9585Kjqnyft Ql (U)NegativeNegSelect Medical [facility] Clinic Rehabilitation Hospital, AvonKetones Ql (U)Ketones [Presence] in Urine by Test stripNegSelect Medical [facility] Clinic Rehabilitation Hospital, AvonLaboratory - Microbiology and Antimicrobial susceptibilityOrdered By: Ayanna Vicente on 58-13-0683Jlppbakh identified Cx Nom (U)Klebsiella variicola AbnormalOhio State East HospitalBacteria identified Cx Nom (U) Klebsiella variicolaAbnormalOhio State East HospitalLeukocyte esterase [Presence] in Urine by Test stripOrdered By: Ayanna Vicente on 18-47-8899Yeakcrbrd esterase Test strip Ql (U)2+HighNegSelect Medical [facility] [place] Leukocyte esterase Test strip Ql (U)Leukocyte esterase [Presence] in Urine by Test stripHighNegSelect Medical [facility] Clinic Rehabilitation Hospital, AvonLeukocytes [#/area] in Urine sediment by Microscopy high power fieldOrdered By: Ayanna Vicente on 03-76-0310ZGG LM.HPF (Urine sed) [#/Area]10- [HPF]High0-4FMercy Health St. Rita's Medical CenterWBC LM.HPF (Urine sed) [#/Area]Leukocytes [#/area] in Urine sediment by Microscopy high power fieldHigh0-4FMercy Health St. Rita's Medical Center Microalbumin [Mass/volume] in UrineOrdered By: Ayanna Vicente on 02-02-5530Tzavwgo DL <= 20 mg/L (U) [Mass/Vol]1.6 mg/dL0.0-1.8[facility] Albumin DL <= 20 mg/L (U) [Mass/Vol]Microalbumin [Mass/volume] in Urine0.0-1.8 [facility] HospitalNitrite Test strip Ql (U)Ordered By: Ayanna Vicente on 54-24-7563Mkleaqa Ql (U)NegativeNegativeOhio State East HospitalNitrite Ql (U)Nitrite [Presence] in Urine by Test stripNegSelect Medical [facility], AvonNo Panel InformationOrdered By: Ayanna Vicente on 48-18-2395Tutzlxwvb GFR (CKD-EPI)51.605 mL/MinOhio State East Hospital Pharmacy Creatinine Clearance (ChemN/AFMercy Health St. Rita's Medical CenterPotassium [Moles/volume] in Serum or PlasmaOrdered By: Ayanna Vicente on 05-06-2024 Potassium [Moles/Vol]5.1 mmol/L3.5-5.1FMercy Health St. Rita's Medical CenterPotassium [Moles/Vol]Potassium [Moles/volume] in Serum or Plasma3.5-5.1FMercy Health St. Rita's Medical CenterProtein Test strip (U) [Mass/Vol]Ordered By: Ayanna Vicente on 27-80-9479Mnrqibc (U) [Mass/Vol]Trace mg/dLHighNegSelect Medical [facility] Clinic Rehabilitation Hospital, AvonProtein (U) [Mass/Vol]Protein [Mass/volume] in Urine by Test strip HighNegSelect Medical [facility] Clinic Rehabilitation Hospital, AvonProtein [Mass/volume] in Serum or PlasmaOrdered By: Ayanna Vicente on 33-89-4303Xhlwsgk [Mass/Vol]6.8 g/dL6.4-8.9 [facility] HospitalProtein [Mass/Vol]Protein [Mass/volume] in Serum or Plasma6.4-8.9C[facility] Clinicerum or plasma albumin/globulin mass ratioOrdered By: Ayanna Vicente on 05-06-2024 Albumin/Globulin [Mass ratio]1.5 {ratio}[facility] Albumin/Globulin [Mass ratio]Serum or plasma albumin/globulin mass ratio Cleveland Clinicerum or plasma anion gap determinationOrdered By: Ayanna Vicente on 66-42-2857Rdssa gap [Moles/Vol]10.9 mmol/L6.0-15.0[facility] HospitalAnion gap [Moles/Vol]Serum or plasma anion gap determination6.0-15.0C[facility] Clinicerum or plasma high density lipoprotein (HDL) cholesterol measurementOrdered By: Ayanna Vicente on 72-24-3582Tdzzvkcaofx in HDL [Mass/Vol]41 mg/mU60-73YzgdbzivwOhio State East HospitalComment on above:HDL CHOL ATP-III CLASSIFICATION Cardiovascular RiskHDL > or equal to 60 mg/dL LOWHDL < 40 mg/dL HIGHSerum or plasma total cholesterol/high density lipoprotein (HDL) cholesterol mass ratOrdered By: Ayanna Vicente on 35-55-0955Inkcuezhcku.total/Cholesterol in HDL [Mass ratio]3.3 {ratio}<5.0[facility] HospitalCholesterol.total/Cholesterol in HDL [Mass ratio]Serum or plasma total cholesterol/high density lipoprotein (HDL) cholesterol mass rat<5.0Cleveland Clinicodium [Moles/volume] in Serum or PlasmaOrdered By: Ayanna Vicente on 63-03-3857Jhujhv [Moles/Vol]141 mmol/V403-270BhjazvktzCleveland Clinicodium [Moles/Vol]Sodium [Moles/volume] in Serum or Iigmdb223-657PzgzqsreoOhio State East Hospital Specific gravity Test strip (U) [Rel density]Ordered By: Ayanna Vicente on 20-20-9415Staiqptp gravity (U) [Rel density]1.0201.001-1.030C[facility] Clinicpecific gravity (U) [Rel density]Specific gravity of Urine by Test strip1.001-1.030[facility] HospitalThyrotropin [Units/volume] in Serum or PlasmaOrdered By: Ayanna Vicente on 32-43-7193HHB Qn1.93 m[IU]/L 0.45-5.33[facility] HospitalTSH QnThyrotropin [Units/volume] in Serum or Plasma0.45-5.33[facility] HospitalThyroxine (T4) free [Mass/volume] in Serum or PlasmaOrdered By: Ayanna Vicente on 25-51-4184Memy T4 [Mass/Vol]0.94 ng/dL0.61-1.12[facility] HospitalFree T4 [Mass/Vol] Thyroxine (T4) free [Mass/volume] in Serum or Plasma0.61-1.12[facility] HospitalTriglyceride [Mass/volume] in Serum or PlasmaOrdered By: Ayanna Vicente on 15-04-7073Rnqlrqdysdje [Mass/Vol]235 mg/dLHigh0149[facility] HospitalComment on above:TRIG ATP III CLASSIFICATIONTRIG less than 150 mg/dL NormalTRIG 150-199 mg/dL Borderline highTRIG 200-500 mg/dL High TRIG greater than 500 mg/dL Very highStandard traceable to the Center for Disease Co nrtrol and Prevention (CDC) test method.Triglyceride [Mass/Vol]Triglyceride [Mass/volume] in Serum or PlasmaRiver Park Hospital0149[facility] Comment on above:TRIG ATP III CLASSIFICATIONTRIG less than 150 mg/dL NormalTRIG 150-199 mg/dL Borderline highTRIG 200-500 mg/dL High TRIG greater than 500 mg/dL Very highStandard traceable to the Center for Disease Conrtrol and Prevention (CDC) test method.Triiodothyronine (T3) [Mass/volume] in Serum or PlasmaOrdered By: Ayanna Vicente on 50-19-6821S8 [Mass/Vol]0.89 ng/mL0.87-1.78[facility] HospitalT3 [Mass/Vol]Triiodothyronine (T3) [Mass/volume] in Serum or Plasma0.87-1.78[facility] HospitalUrea nitrogen [Mass/volume] in Serum or PlasmaOrdered By: Ayanna Vicente on 43-91-3465Ozkx nitrogen [Mass/Vol]29 mg/dLHigh-[facility] HospitalUrea nitrogen [Mass/Vol]Urea nitrogen [Mass/volume] in Serum or PlasmaMorton Hospital-[facility] HospitalUrine appearanceOrdered By: Aynana Vicente on 08-49-1112Jvdwpkdlmh (U)Clear ClearOhio State East HospitalUrine cultureOrdered By: Ayanna Vicente on 34-51-5985Gyjqrjmw identified Cx Nom (U)AbnormalOhio State East HospitalUrine microalbumin/creatinine mass ratioOrdered By: Ayanna Vicente on 41-09-7890Cifdvkg/Creatinine DL <= 20 mg/L (U) [Mass ratio]17.2 mg/g0.0-30.0 [facility] HospitalComment on above:30-300 mg/g indicates an increased risk for diabetic nephropathy. Greater than 300 mg/g is consistent with clinical nephropathy. (Am. J. Kidney Disease 1995, 25:107) Albumin/Creatinine DL <= 20 mg/L (U) [Mass ratio]Urine microalbumin/creatinine mass ratio0.0-30.0[facility] HospitalComment on above:30-300 mg/g indicates an increased risk for diabetic nephropathy. Greater than 300 mg/g is consistent with clinical nephropathy. (Am. J. Kidney Disease 1995, 25:107) Urobilinogen Test strip (U) [Mass/Vol]Ordered By: Ayanna Vicente on 05-06-2024 Urobilinogen (U) [Mass/Vol]Normal mg/dLNormalOhio State East Hospital Urobilinogen (U) [Mass/Vol]Urobilinogen [Mass/volume] in Urine by Test strip NormalOhio State East HospitalpH Test strip (U)Ordered By: Ayanna Vicente on 65-83-7809vL (U)5.5 [pH]5.0-9.0[facility] HospitalpH (U)pH of Urine by Test strip5.0-9.0[facility] HospitalAmbulatory Visit Summaryon 14-10-5846Vajxaabbim Visit SummaryAmbulatory Visit Summary KATHY WASHBURN :1940 Visit Date:02/24/2024 Ambulatory [...] mos (no labs) Where: [address] [place] [id number] Medications What How Much When Why Instructions [...] work or social activities (more content not included)...[facility] HospitalU[facility] Office/Clinic Noteon 42-00-3353[place] Office/Clinic Note Urology Office/Clinic Note Chief Complaint [...] (N32.81: Overactive bladder) S/p Botox 100u 08/30/21. -[place] sxs only improved for a few weeks [...] Contact Information JAX BECKMAN, SUSAN Miller, URL [address] [place] [address] [phone] Additional Instructions: 6 mos (no labs) Patient [...] Cipro 500 mg Tab, (more content not included)...[facility] HospitalComment on above:Result Comment: Electronically Signed By: SUSAN RANDOLPH PA-C\.br\Date and Time Signed: 02/23/2410:53 EDT\.br\Electronically Co- Signed By: Sarah Ospina\.br\Date and Time Co-Signed: 02/24/24 10:44 EDT\.br\Electronically Co-Signed By: Sarah Ospina\.br\Date and Time Co-Signed: 02/24/24 10:47 EDTLaboratory - Chemistry and Chemistry - challengeon 02-04-2024 Bilirubin Ql (U)NegativeNEGATIVEOhio State East HospitalGlucose (U) [Mass/Vol]NegativeNEGATIVEOhio State East HospitalKetones Ql (U) NegativeNEGProtestant HospitalpH (U)6.0 [pH]5.0-9.0Cleveland Clinicpecific gravity (U) [Rel density]>=1.030Abnormal 1.005-1.025[facility] HospitalUrobilinogen Qn (U)0.2 {Jose'U}/dL0.2-1.0[facility] HospitalLaboratory - Specimen informationon 20-95-7280Lhabuozjje (U)CLEARCLEARFMercy Health St. Rita's Medical CenterColor (U)YELLOWYELLOWOhio State East HospitalLaboratory - Urinalysison 39-49-1283Zchymjnwu esterase Test strip Ql (U)TRACEAbnormalNEGATIVE [facility] HospitalMucus Ql (Urine sed)TRACEAbnormalNONE SEEN [facility] HospitalNitrite Ql (U)NegativeNEGATIVEOhio State East HospitalProtein Ql (U)TRACE mg/dLNEG/TRACEOhio State East HospitalNo Panel Informationon 53-56-9302Chpbweptwelyd Test CommentSee commentOhio State East HospitalComment on above:Specimen Source: UCC - Urine,Clean Catch - Urine CC - 200.100Urine BacteriaTRACE #/HPFAbnormalNONE SEEN [facility] HospitalUrine Occult BloodNegativeNEGATIVEOhio State East HospitalUrine Other CastsNONE SEEN #/LPFNONE [facility] Medical CenterUrine Other CrystalsNone Seen #/HPFNone [facility] HospitalUrine RBC0-2 #/HPF0-2FMercy Health St. Rita's Medical Center Urine Squamous Epithelial CellsRARE #/LPFNONE/RAREOhio State East HospitalUrine WBC2-5 #/HPFAbnormalNONE [facility] Medical CenterUrine culture routineon 68-13-5452Nkhmubbj identified Cx Nom (U)[facility] HospitalAlanine aminotransferase [Enzymatic activity/volume] in Serum or PlasmaOrdered By: Ayanna Vicente on 82-33-6019KKU [Catalytic activity/Vol]28 U/L -[facility] HospitalAlbumin [Mass/volume] in Serum or Plasma by Bromocresol green (BCG) dye binding methoOrdered By: Ayanna Vicente on 10-17-2023 Albumin BCG dye [Mass/Vol]4.1 g/dL3.5-5.7FMercy Health St. Rita's Medical Center Alkaline phosphatase [Enzymatic activity/volume] in Serum or PlasmaOrdered By: Ayanna Vicente on 98-61-8465SBG [Catalytic activity/Vol]93 U/B56-069HusnmwgumOhio State East HospitalAnisocytosis LM Ql (Bld)Ordered By: Ayanna Vicente on 06-20-1733Wojifnljvgao Ql (Bld)SlightOhio State East HospitalAspartate aminotransferase [Enzymatic activity/volume] in Serum or PlasmaOrdered By: Ayanna Vicente on 23-84-3701NBS [Catalytic activity/Vol]30 U/W73-34NandqowfeOhio State East HospitalAutomated erythrocytes count in urine sediment (number/area) Ordered By: Ayanna Vicente on 75-59-1536QMY Auto (Urine sed) [#/Area]1-2 [HPF]0-4 [facility] HospitalAutomated leukocytes count in urine sediment (number/area)Ordered By: Ayanna Vicente on 81-93-1428ZRB Auto (Urine sed) [#/Area] 10-19 [HPF]High0-4FMercy Health St. Rita's Medical CenterBasophils Auto (Bld) [#/Vol] Ordered By: Ayanna Vicente on 46-11-8493Cguwtvdsf (Bld) [#/Vol]N/[facility] CenterBasophils/100 WBC Auto (Bld)Ordered By: Ayanna Vicente on 48-01-3490Hrovpntym/100 WBC (Bld)N/[facility] CenterBilirubin Test strip Ql (U)Ordered By: Ayanna Vicente on 52-36-0356Ovfkdcruj Ql (U)Negative NegativeOhio State East HospitalBilirubin.total [Mass/volume] in Serum or PlasmaOrdered By: Ayanna Vicente on 35-97-9401Tdmovdlsj [Mass/Vol]0.4 mg/dL 0.3-1.0[facility] HospitalCalcium [Mass/volume] in Serum or Plasma Ordered By: Ayanna Vicente on 95-48-4019Idbifgx [Mass/Vol]9.7 mg/dL8.6-10.3 [facility] HospitalCarbon dioxide, total [Moles/volume] in Serum or PlasmaOrdered By: Ayanna Vicente on 82-96-3386CX0 [Moles/Vol]30.9 mmol/L 21.0-31.0[facility] HospitalChloride [Moles/volume] in Serum or PlasmaOrdered By: Ayanna Vicente on 49-00-6772Mqhnjjlt [Moles/Vol]105 mmol/L98-107 [facility] HospitalCholesterol [Mass/volume] in Serum or Plasma Ordered By: Ayanna Vicente on 88-46-7653Zsnpvbspneo [Mass/Vol]131 mg/kOUsi059-545 [facility] HospitalComment on above:Chol less than 200 mg/dl low riskChol 201-239 mg/dl borderline riskChol 240 mg/dl and greater high risk Cholesterol in LDL Calc [Mass/Vol]Ordered By: Ayanna Vicente on 10-17-2023 Cholesterol in LDL [Mass/Vol]30 mg/dL0-100[facility] Comment on above:LDL ATP III CLASSIFICATIONLDL less than 100 mg/dL OptimalLDL 100-129 mg/dL Near or above ubbokexDVB201-240 mg/dL Borderline highLDL 160-189 mg/dL HighLDL greater than 189 mg/dL Very highCholesterol in VLDL Calc [Mass/Vol]Ordered By: Ayanna Vicente on 28-80-6226Hdlfzyxpiwi in VLDL [Mass/Vol]60 mg/dLOhio State East HospitalColor Auto (U)Ordered By: Ayanna Vicente on 88-09-9551Jfepj (U)YellowYellowOhio State East HospitalCreatinine [Mass/volume] in Serum or PlasmaOrdered By: Ayanna Vicente on 28-85-6749Qeihwtglnr [Mass/Vol]1.15 mg/dL0.60-1.20[facility] HospitalEosinophils Auto (Bld) [#/Vol]Ordered By: Ayanna Vicente on 75-78-2767Imehjvnqpzf (Bld) [#/Vol]N/A [facility] HospitalEosinophils/100 WBC Auto (Bld)Ordered By: Ayanna Vicente on 77-63-6494Xbdqgxggsxu/100 WBC (Bld)N/AFMercy Health St. Rita's Medical CenterEosinophils/100 WBC Manual cnt (Bld)Ordered By: Ayanna Vicente on 10-17-2023 Eosinophils/100 WBC (Bld)2 %1-3FMercy Health St. Rita's Medical CenterErythrocyte distribution width Auto (RBC) [Ratio]Ordered By: Ayanna Vicente on 10-17-2023 Erythrocyte distribution width (RBC) [Ratio]15.2 %11.9-15.3FMercy Health St. Rita's Medical CenterGlobulin Calc (S) [Mass/Vol]Ordered By: Ayanna Vicente on 10-17-2023 Globulin (S) [Mass/Vol]2.6 g/dLOhio State East HospitalGlucose [Mass/volume] in Serum or PlasmaOrdered By: Ayanna Vicente on 76-07-8575Euridlc [Mass/Vol]162 mg/nHPxjr50-428QqeyhhlbaOhio State East HospitalComment on above: ADA recommended reference rangeRandom Glucose Reference Range is dependent on time and content of last meal. Glucose of more than 200 mg/dL in a nonstressed, ambulatory subject supports the diagnosisof Diabetes Mellitus.Glucose mean value [Mass/volume] in Blood Estimated from glycated hemoglobinOrdered By: Ayanna Vicente on 55-87-9696Mesdajv glucose Estimated from glycated hemoglobin (Bld) [Mass/Vol]197 mg/dLOhio State East HospitalHematocrit Auto (Bld) [Volume fraction]Ordered By: Ayanna Vicente on 27-26-7497Mkrqvkjaxs (Bld) [Volume fraction]38.8 %34.0-46.4FMercy Health St. Rita's Medical CenterHemoglobin A1c percentageOrdered By: Ayanna Vicente on 62-20-1823FpE3a (Bld) [Mass fraction]8.5 % High4.3-5.6FMercy Health St. Rita's Medical CenterComment on above:Increased risk for diabetes: 5.7 - 6.4diabetes: >6.4glycemic control for adults with diabetes: &l t;7.0Hemoglobin [Mass/volume] in BloodOrdered By: Ayanna Vicente on 10-17-2023 Hemoglobin (Bld) [Mass/Vol]12.2 g/dL11.8-15.4FMercy Health St. Rita's Medical Center Ketones Auto test strip (U) [Mass/Vol]Ordered By: Ayanna Vicente on 10-17-2023 Ketones (U) [Mass/Vol]NegativeNegativeOhio State East Hospital Laboratory - UrinalysisOrdered By: Ayanna Vicente on 82-00-9485Jmkslyr casts LM Ql (Urine sed)None seen [LPF]0-8[facility] HospitalLeukocytes [#/volume] corrected for nucleated erythrocytes in Blood by Automated coun Ordered By: Ayanna Vicente on 41-50-0496DCL corrected for nucl RBC Auto (Bld) [#/Vol]15.9 10*3/uLHigh3.8-11.6FMercy Health St. Rita's Medical CenterLymphocytes Auto (Bld) [#/Vol]Ordered By: Ayanna Vicente on 92-48-0999Dyipbejjnvr (Bld) [#/Vol]N/A [facility] HospitalLymphocytes/100 WBC Auto (Bld)Ordered By: Ayanna Vicente on 61-58-1755Asvunjiyoke/100 WBC (Bld)N/AFMercy Health St. Rita's Medical CenterLymphocytes/100 WBC Manual cnt (Bld)Ordered By: Ayanna Vicente on 10-17-2023 Lymphocytes/100 WBC (Bld)51 %Nuaw18-44VloytsgzjOhio State East HospitalMCH Auto (RBC) [Entitic mass]Ordered By: Ayanna Vicente on 51-46-5887ZBW (RBC) [Entitic mass]28.0 pg24.7-34.3FMercy Health St. Rita's Medical CenterMCHC Auto (RBC) [Mass/Vol] Ordered By: Ayanna Vicente on 06-00-8634FTHT (RBC) [Mass/Vol]31.5 g/dLLow32.0-35.0 [facility] HospitalMCV Auto (RBC) [Entitic vol]Ordered By: Ayanna Vicente on 21-42-9006SZA (RBC) [Entitic vol]89.0 oC27-085KngspvovaOhio State East HospitalMicroalbumin [Mass/volume] in UrineOrdered By: Ayanna Vicente on 05-39-9654Ypdebvg DL <= 20 mg/L (U) [Mass/Vol]1.9 mg/dLHigh0.0-1.8[facility] HospitalMicrocytes LM Ql (Bld)Ordered By: Ayanna Vicente on 54-45-0303Xvqmzwvwsl Ql (Bld)SlightOhio State East HospitalMonocytes Auto (Bld) [#/Vol]Ordered By: Ayanna Vicente on 27-28-9286Vaitzyqqv (Bld) [#/Vol] N/[facility] CenterMonocytes/100 WBC Auto (Bld)Ordered By: Ayanna Vicente on 13-27-4211Voxzyofpg/100 WBC (Bld)NSouthview Medical CenterMonocytes/100 WBC Manual cnt (Bld)Ordered By: Ayanna Vicente on 10-17-2023 Monocytes/100 WBC (Bld)8 %2-11[facility] HospitalMyelocytes/100 WBC Manual cnt (Bld)Ordered By: Ayanna Vicente on 06-22-6685Nepshgjyyp/100 WBC (Bld)1 %High0-0[facility] HospitalNeutrophils Auto (Bld) [#/Vol] Ordered By: Ayanna Vicente on 82-71-2491Qchsmkycszc (Bld) [#/Vol]NSouthview Medical CenterNeutrophils/100 WBC Auto (Bld)Ordered By: Ayanna Vicente on 88-37-6596Ifdovayopvy/100 WBC (Bld)NSouthview Medical CenterNitrite Test strip Ql (U)Ordered By: Ayanna Vicente on 72-80-4456Etepiqv Ql (U)Positive HighNegativeOhio State East HospitalNo Panel InformationOrdered By: Ayanna Vicente on 15-23-8788Ydljthedi GFR (CKD-EPI)47.859 mL/MinOhio State East HospitalPharmacy Creatinine Clearance (ChemN/[facility] CenterNucleated erythrocytes [Presence] in Blood by Automated countOrdered By: Ayanna Vicente on 44-77-4205Wtznelgta RBC Auto Ql (Bld)NSouthview Medical CenterPlatelet adequacy [Presence] in Blood by Light microscopyOrdered By: Ayanna Vicente on 23-47-2495Jgnfshbqw LM Ql (Bld)NormalNormalOhio State East HospitalPlatelet mean volume Auto (Bld) [Entitic vol]Ordered By: Ayanna Vicente on 63-17-5649Rtmbyjbv mean volume (Bld) [Entitic vol]9.2 fL6.3-10.7 [facility] HospitalPlatelet morphology finding [Identifier] in BloodOrdered By: Ayanna Vicente on 98-45-9511Iqqycmmv morphology finding Nom (Bld) NormalNormalOhio State East HospitalPlatelets Auto (Bld) [#/Vol]Ordered By: Ayanna Vicente on 51-95-5653Agldrmlwy (Bld) [#/Vol]231 10*3/mU407-959 [facility] HospitalPoikilocytosis [Presence] in Blood by Light microscopyOrdered By: Ayanna Vicente on 59-99-0635Ujpfzclggmtfwp LM Ql (Bld)Slight [facility] HospitalPotassium [Moles/volume] in Serum or Plasma Ordered By: Ayanna Vicente on 11-58-5995Tbexiseke [Moles/Vol]5.1 mmol/L3.5-5.1 [facility] HospitalProtein Auto test strip (U) [Mass/Vol]Ordered By: Ayanna Vicente on 32-01-9879Ptmitez (U) [Mass/Vol]Trace mg/dLHighNegative [facility] HospitalProtein [Mass/volume] in Serum or PlasmaOrdered By: Ayanna Vicente on 56-70-8754Ymxqugq [Mass/Vol]6.7 g/dL6.4-8.9[facility] HospitalRBC Auto (Bld) [#/Vol]Ordered By: Ayanna Vicente on 17-59-5395BZO (Bld) [#/Vol]4.36 10*6/uL3.60-5.00[facility] HospitalRBC morphologyOrdered By: Ayanna Vicente on 90-89-7271RTH morphology finding Nom (Bld)N/AFProMedica Toledo Hospitalegmented neutrophils/100 WBC Manual cnt (Bld)Ordered By: Ayanna Vicente on 48-00-4854Eksyszkwc neutrophils/100 WBC (Bld)33 %Gya49-67ShvbckgbxCleveland Clinicerum or plasma albumin/globulin mass ratioOrdered By: Ayanna Vicente on 10-17-2023 Albumin/Globulin [Mass ratio]1.6 {ratio}[facility] Clinicerum or plasma anion gap determinationOrdered By: Ayanna Vicente on 66-58-3601Riuiw gap [Moles/Vol]8.2 mmol/L6.0-15.0[facility] Clinicerum or plasma high density lipoprotein (HDL) cholesterol measurementOrdered By: Ayanna Vicente on 90-07-6510Nlrejfwpuvk in HDL [Mass/Vol]40 mg/lI67-69TxkipkoorOhio State East HospitalComment on above:HDL CHOL ATP-III CLASSIFICATION Cardiovascular RiskHDL > or equal to 60 mg/dL LOWHDL < 40 mg/dL HIGHSerum or plasma total cholesterol/high density lipoprotein (HDL) cholesterol mass ratOrdered By: Ayanna Vicente on 70-53-3990Dxgjjtvgqta.total/Cholesterol in HDL [Mass ratio]3.3 {ratio}<5.0C[facility] Clinicodium [Moles/volume] in Serum or PlasmaOrdered By: Ayanna Vicente on 03-15-1306Eveknm [Moles/Vol]139 mmol/Q882-025 [facility] Clinicpecific gravity Auto test strip (U) [Rel density]Ordered By: Ayanna Vicente on 23-25-5787Wappkgci gravity (U) [Rel density] 1.0181.001-1.030C[facility] Clinicquamous epithelial cells detection in urine sediment by light microscopyOrdered By: Ayanna Vicente on 73-48-3613Zfgqzumwiv cells.squamous LM Ql (Urine sed)0-1 [HPF]0-2FMercy Health St. Rita's Medical CenterThyrotropin [Units/volume] in Serum or PlasmaOrdered By: Ayanna Vicente on 03-29-5898WUI Qn1.46 m[IU]/L0.45-5.33[facility] HospitalThyroxine (T4) free [Mass/volume] in Serum or PlasmaOrdered By: Ayanna Vicente on 26-31-4507Ffoy T4 [Mass/Vol]1.02 ng/dL0.61-1.12[facility] HospitalTriglyceride [Mass/volume] in Serum or PlasmaOrdered By: Ayanna Vicente on 81-50-5387Ubomiiaxiani [Mass/Vol]303 mg/dLHigh0-149[facility] HospitalComment on above:TRIG ATP III CLASSIFICATIONTRIG less than 150 mg/dL NormalTRIG 150-199 mg/dL Borderline highTRIG 200-500 mg/dL High TRIG greater than 500 mg/dL Very highStandard traceable to the Center for Disease Co nrtrol and Prevention (CDC) test method.Triiodothyronine (T3) Free [Mass/volume] in Serum or PlasmaOrdered By: Ayanna Vicente on 68-54-5485Mfgb T3 [Mass/Vol]3.22 pg/mL2.50-3.90[facility] HospitalUrea nitrogen [Mass/volume] in Serum or PlasmaOrdered By: Ayanna Vicente on 25-37-9701Extg nitrogen [Mass/Vol]30 mg/dLHigh7-25[facility] HospitalUrine bacteria detection by automated methodOrdered By: Ayanna Vicente on 66-64-2443Hfjvfhza Auto Ql (U)4+High None SeenOhio State East HospitalUrine clarity by refractometry automatedOrdered By: Ayanna Vicente on 16-75-1404Zpkkxog Refractometry automated (U)ClearCleChillicothe HospitalUrine culture routineOrdered By: Ayanna Vicente on 51-00-6199Zpqktwhw identified Cx Nom (U)Escherichia coli (MDRO) AbnormalOhio State East HospitalUrine glucose measurement by automated test strip (mass/volume)Ordered By: Ayanna Vicente on 39-08-1388Wgroiab Auto test strip (U) [Mass/Vol]Normal mg/dLNormSumma HealthUrine hemoglobin detection by automated test stripOrdered By: Ayanna Vicente on 93-52-0523Gitmlkopzk Auto test strip Ql (U)NegativeNegativeOhio State East HospitalUrine leukocyte esterase detection by automated test stripOrdered By: Ayanna Vicente on 40-16-4265Orebkfxqf esterase Auto test strip Ql (U)2+High NegativeOhio State East HospitalUrobilinogen Auto test strip (U) [Mass/Vol]Ordered By: Ayanna Vicente on 56-90-4943Qbbksspkncec (U) [Mass/Vol] Normal mg/dLNormSumma HealthVariant lymphocytes/100 WBC Manual cnt (Bld)Ordered By: Ayanna Vicente on 57-11-4237Gvsuqlv lymphocytes/100 WBC (Bld)6 %0-12[facility] HospitalWBC Auto (Bld) [#/Vol]Ordered By: Ayanna Vicente on 62-92-1517HXZ (Bld) [#/Vol]15.9 10*3/uLHigh3.8-11.6FMercy Health St. Rita's Medical CenterpH Auto test strip (U)Ordered By: Ayanna Vicente on 18-23-9379bJ (U)5.5 [pH]5.0-9.0[facility] HospitalAlanine aminotransferase [Enzymatic activity/volume] in Serum or PlasmaOrdered By: Ayanna Vicente on 05-98-4548LGN [Catalytic activity/Vol]25 U/L7-52[facility] HospitalAlbumin [Mass/volume] in Serum or Plasma by Bromocresol green (BCG) dye binding methoOrdered By: Ayanna Vicente on 10-34-4471Idixopp BCG dye [Mass/Vol]4.2 g/dL3.5-5.7FMercy Health St. Rita's Medical CenterAlkaline phosphatase [Enzymatic activity/volume] in Serum or PlasmaOrdered By: Ayanna Vicente on 44-71-8303RDC [Catalytic activity/Vol]95 U/T81-752DerhzfymaOhio State East HospitalAnisocytosis LM Ql (Bld)Ordered By: Ayanna Vicente on 24-53-2183Sylzbuqpwbmh Ql (Bld)SlightOhio State East HospitalAspartate aminotransferase [Enzymatic activity/volume] in Serum or PlasmaOrdered By: Ayanna Vicente on 11-31-1891AUE [Catalytic activity/Vol]21 U/E37-04HsopzyildOhio State East HospitalBasophils Auto (Bld) [#/Vol]Ordered By: Ayanna Vicente on 04-09-2023 Basophils (Bld) [#/Vol]N/AFMercy Health St. Rita's Medical CenterBasophils/100 WBC Auto (Bld)Ordered By: Ayanna Vicente on 66-06-9936Hvdofbywn/100 WBC (Bld)N/A [facility] HospitalBilirubin.total [Mass/volume] in Serum or PlasmaOrdered By: Ayanna Vicente on 82-95-4533Eikcaescu [Mass/Vol]0.4 mg/dL0.3-1.0 [facility] HospitalCalcium [Mass/volume] in Serum or PlasmaOrdered By: Ayanna Vicente on 18-77-6622Haumtrl [Mass/Vol]9.9 mg/dL8.6-10.3FMercy Health St. Rita's Medical CenterCarbon dioxide, total [Moles/volume] in Serum or Plasma Ordered By: Ayanna Vicente on 34-24-0742XI6 [Moles/Vol]31.5 mmol/L21.0-31.0 [facility] HospitalChloride [Moles/volume] in Serum or Plasma Ordered By: Ayanna Vicente on 31-58-6021Xripgmgd [Moles/Vol]103 mmol/L98-107 [facility] HospitalCholesterol [Mass/volume] in Serum or Plasma Ordered By: Ayanna Vicente on 58-37-0490Motyjmunqel [Mass/Vol]139 mg/wS303-182 [facility] HospitalComment on above:Chol less than 200 mg/dl low riskChol 201-239 mg/dl borderline riskChol 240 mg/dl and greater high risk Cholesterol in LDL Calc [Mass/Vol]Ordered By: Ayanna Vicente on 04-09-2023 Cholesterol in LDL [Mass/Vol]27 mg/dL0-100[facility] Comment on above:LDL ATP III CLASSIFICATIONLDL less than 100 mg/dL OptimalLDL 100-129 mg/dL Near or above grpeogoBHP490-643 mg/dL Borderline highLDL 160-189 mg/dL HighLDL greater than 189 mg/dL Very highCholesterol in VLDL Calc [Mass/Vol]Ordered By: Ayanna Vicente on 32-17-1828Rzllwijhtnz in VLDL [Mass/Vol]69 mg/dLOhio State East HospitalCreatinine [Mass/volume] in Serum or PlasmaOrdered By: Ayanna Vicente on 00-83-1090Hylpstgmuk [Mass/Vol]1.06 mg/dL 0.60-1.20[facility] HospitalEosinophils Auto (Bld) [#/Vol]Ordered By: Ayanna Vicente on 38-85-7776Vagxaonlikw (Bld) [#/Vol]N/[facility] CenterEosinophils/100 WBC Auto (Bld)Ordered By: Ayanna Vicente on 25-77-6143Dagmanoumdi/100 WBC (Bld)N/[facility] Eosinophils/100 WBC Manual cnt (Bld)Ordered By: Ayanna Vicente on 04-09-2023 Eosinophils/100 WBC (Bld)5 %1-3FMercy Health St. Rita's Medical CenterErythrocyte distribution width Auto (RBC) [Ratio]Ordered By: Ayanna Vicente on 04-09-2023 Erythrocyte distribution width (RBC) [Ratio]15.1 %11.9-15.3FMercy Health St. Rita's Medical CenterGlobulin Calc (S) [Mass/Vol]Ordered By: Ayanna Vicente on 04-09-2023 Globulin (S) [Mass/Vol]2.4 g/dLOhio State East HospitalGlucose [Mass/volume] in Serum or PlasmaOrdered By: Ayanna Vicente on 61-41-1897Netadzd [Mass/Vol]154 mg/qS06-766QsdbkfiphOhio State East HospitalComment on above:ADA recommended reference rangeRandom Glucose Reference Range is dependent on time and content of last meal. Glucose of more than 200 mg/dL in a nonstressed, ambulatory subject supports the diagnosisof Diabetes Mellitus.Glucose mean value [Mass/volume] in Blood Estimated from glycated hemoglobinOrdered By: Ayanna Vicente on 43-50-9885Aviktpl glucose Estimated from glycated hemoglobin (Bld) [Mass/Vol]200 mg/dLOhio State East HospitalHematocrit Auto (Bld) [Volume fraction]Ordered By: Ayanna Vicente on 06-85-7190Mkpsnecnls (Bld) [Volume fraction]37.2 %34.0-46.4FMercy Health St. Rita's Medical CenterHemoglobin A1c percentageOrdered By: Ayanna Vicente on 84-89-6922JwE2p (Bld) [Mass fraction]8.6 % 4.3-5.6FMercy Health St. Rita's Medical CenterComment on above:Increased risk for diabetes: 5.7 - 6.4diabetes: >6.4glycemic control for adults with diabetes: &l t;7.0Hemoglobin [Mass/volume] in BloodOrdered By: Ayanna Vicente on 04-09-2023 Hemoglobin (Bld) [Mass/Vol]12.2 g/dL11.8-15.4FMercy Health St. Rita's Medical Center Leukocytes [#/volume] corrected for nucleated erythrocytes in Blood by Automated counOrdered By: Ayanna Vicente on 72-14-8724CHX corrected for nucl RBC Auto (Bld) [#/Vol]15.3 10*3/uL3.8-11.6FMercy Health St. Rita's Medical CenterLymphocytes Auto (Bld) [#/Vol]Ordered By: Ayanna Vicente on 57-59-7411Plcppbxellm (Bld) [#/Vol]N/A [facility] HospitalLymphocytes/100 WBC Auto (Bld)Ordered By: Ayanna Vicente on 37-73-3256Bndfbzdylfk/100 WBC (Bld)N/[facility] CenterLymphocytes/100 WBC Manual cnt (Bld)Ordered By: Ayanna Vicente on 04-09-2023 Lymphocytes/100 WBC (Bld)59 %18-42[facility] HospitalMCH Auto (RBC) [Entitic mass]Ordered By: Ayanna Vicente on 29-47-8661NXF (RBC) [Entitic mass]29.1 pg24.7-34.3FMercy Health St. Rita's Medical CenterMCHC Auto (RBC) [Mass/Vol] Ordered By: Ayanna Vicente on 64-02-6235QFON (RBC) [Mass/Vol]32.9 g/dL32.0-35.0 [facility] HospitalMCV Auto (RBC) [Entitic vol]Ordered By: Ayanna Vicente on 27-30-7009SKJ (RBC) [Entitic vol]88.5 qV75-922DzefpurtlOhio State East HospitalMonocytes Auto (Bld) [#/Vol]Ordered By: Ayanna Vicente on 04-09-2023 Monocytes (Bld) [#/Vol]N/[facility] CenterMonocytes/100 WBC Auto (Bld)Ordered By: Ayanna Vicente on 17-70-0946Wmuscjmsf/100 WBC (Bld)N/A [facility] HospitalMonocytes/100 WBC Manual cnt (Bld)Ordered By: Ayanna Vicente on 82-40-4420Cfbjjikxd/100 WBC (Bld)7 %2-11[facility] HospitalMyelocytes/100 WBC Manual cnt (Bld)Ordered By: Ayanna Vicente on 06-62-0685Anfmelpjox/100 WBC (Bld)1 %0-0[facility] Neutrophils Auto (Bld) [#/Vol]Ordered By: Ayanna Vicente on 20-51-2089Smbsyxermvn (Bld) [#/Vol]N/[facility] CenterNeutrophils/100 WBC Auto (Bld) Ordered By: Ayanna Vicente on 31-58-4040Oqwozuboxel/100 WBC (Bld)N/[facility] CenterNo Panel InformationOrdered By: Ayanna Vicente on 85-45-2822Umzbkukro GFR (CKD-EPI)53.106 mL/MinOhio State East Hospital Pharmacy Creatinine Clearance (ChemN/[facility] CenterNucleated erythrocytes [Presence] in Blood by Automated countOrdered By: Ayanna Vicente on 68-11-0104Fabyfjkgz RBC Auto Ql (Bld)N/[facility] Ovalocyte detectionOrdered By: Ayanna Vicente on 07-88-2606Mntkuhdhpq LM Ql (Bld) SlightOhio State East HospitalPlatelet adequacy [Presence] in Blood by Light microscopyOrdered By: Ayanna Vicente on 28-92-0575Fwoimfqwe LM Ql (Bld) NormalNoUniversity Hospitals Elyria Medical CenterPlatelet mean volume Auto (Bld) [Entitic vol]Ordered By: Ayanna Vicente on 82-58-1403Oplmiyjp mean volume (Bld) [Entitic vol]9.5 fL6.3-10.7FMercy Health St. Rita's Medical CenterPlatelet morphology finding [Identifier] in BloodOrdered By: Ayanna Vicente on 45-21-3139Jwialmno morphology finding Nom (Bld)NormalDayton VA Medical Center Platelets Auto (Bld) [#/Vol]Ordered By: Ayanna Vicente on 38-95-5844Hwvoixefq (Bld) [#/Vol]211 10*3/bZ396-211LnvioxmfiOhio State East HospitalPotassium [Moles/volume] in Serum or PlasmaOrdered By: Ayanna Vicente on 49-07-4900Vlektzmhp [Moles/Vol]5.0 mmol/L3.5-5.1FMercy Health St. Rita's Medical CenterProtein [Mass/volume] in Serum or PlasmaOrdered By: Ayanna Vicente on 14-73-8473Jbvjjxe [Mass/Vol]6.6 g/dL6.4-8.9[facility] HospitalRBC Auto (Bld) [#/Vol] Ordered By: Ayanna Vicente on 68-11-9760OOQ (Bld) [#/Vol]4.20 10*6/uL3.60-5.00 [facility] HospitalRBC morphologyOrdered By: Ayanna Vicente on 39-93-5053ZNJ morphology finding Nom (Bld)N/AFMercy Health St. Rita's [facility] Center Segmented neutrophils/100 WBC Manual cnt (Bld)Ordered By: Ayanna Vicente on 78-21-4062Vyxceykej neutrophils/100 WBC (Bld)27 %50-70[facility] Clinicerum or plasma albumin/globulin mass ratioOrdered By: Ayanna Vicente on 34-09-2777Nobjnuj/Globulin [Mass ratio]1.8 {ratio}[facility] Clinicerum or plasma anion gap determinationOrdered By: Ayanna Vicente on 64-21-9929Uaefc gap [Moles/Vol]10.5 mmol/L6.0-15.0[facility] Clinicerum or plasma high density lipoprotein (HDL) cholesterol measurement Ordered By: Ayanna Vicente on 98-22-5111Jdjthqboxvc in HDL [Mass/Vol]42 mg/dL23-92 [facility] HospitalComment on above:HDL CHOL ATP-III CLASSIFICATION Cardiovascular RiskHDL > or equal to 60 mg/dL LOWHDL < 40 mg/dL HIGHSerum or plasma total cholesterol/high density lipoprotein (HDL) cholesterol mass ratOrdered By: Ayanna Vicente on 23-08-0609Jczqnuodffb.total/Cholesterol in HDL [Mass ratio]3.3 {ratio}<5.0[facility] Clinicodium [Moles/volume] in Serum or PlasmaOrdered By: Ayanna Vicente on 89-34-2423Oivqyl [Moles/Vol]140 mmol/P991-904YfurybnhbOhio State East HospitalThyrotropin [Units/volume] in Serum or PlasmaOrdered By: Ayanna Vicente on 98-12-6042FMG Qn 1.62 m[IU]/L0.45-5.33[facility] HospitalThyroxine (T4) free [Mass/volume] in Serum or PlasmaOrdered By: Ayanna Vicente on 89-20-4962Ycla T4 [Mass/Vol]0.78 ng/dL0.61-1.12[facility] HospitalTriglyceride [Mass/volume] in Serum or PlasmaOrdered By: Ayanna Vicente on 04-09-2023 Triglyceride [Mass/Vol]349 mg/dL0-149[facility] HospitalComment on above:TRIG ATP III CLASSIFICATIONTRIG less than 150 mg/dL NormalTRIG 150-199 mg/dL Borderline highTRIG 200-500 mg/dL High TRIG greater than 500 mg/dL Very highStandard traceable to the Center for Disease Conrtrol and Prevention (CDC) test method.Triiodothyronine (T3) Free [Mass/volume] in Serum or PlasmaOrdered By: Ayanna Vicente on 83-04-0032Ykji T3 [Mass/Vol]2.71 pg/mL2.50-3.90[facility] HospitalUrea nitrogen [Mass/volume] in Serum or PlasmaOrdered By: Ayanna Vicente on 63-21-0998Ulse nitrogen [Mass/Vol]28 mg/dL7-[facility] HospitalVariant lymphocytes/100 WBC Manual cnt (Bld)Ordered By: Ayanna Vicente on 38-70-2003Sjrjdbf lymphocytes/100 WBC (Bld)1 %0-12[facility] HospitalWBC Auto (Bld) [#/Vol]Ordered By: Ayanna Vicente on 47-87-5542WGC (Bld) [#/Vol]15.3 10*3/uL3.8-11.6FMercy Health St. Rita's Medical Center Alanine aminotransferase [Enzymatic activity/volume] in Serum or PlasmaOrdered By: Ayanna Vicente on 02-84-7134OSP [Catalytic activity/Vol]25 U/L7-52[facility] HospitalAlbumin [Mass/volume] in Serum or Plasma by Bromocresol green (BCG) dye binding methoOrdered By: Ayanna Vicente on 39-55-7517Hjrtfez BCG dye [Mass/Vol]4.3 g/dL3.5-5.7FMercy Health St. Rita's Medical CenterAlkaline phosphatase [Enzymatic activity/volume] in Serum or PlasmaOrdered By: Ayanna Vicente on 43-08-3151NZB [Catalytic activity/Vol]97 U/D43-922DeyfkqbtaOhio State East HospitalAnisocytosis LM Ql (Bld)Ordered By: Ayanna Vicente on 09-30-2022 Anisocytosis Ql (Bld)SlightOhio State East HospitalAspartate aminotransferase [Enzymatic activity/volume] in Serum or PlasmaOrdered By: Ayanna Vicente on 81-84-5092RFJ [Catalytic activity/Vol]22 U/Y51-91NsqqqbumlOhio State East HospitalBasophils Auto (Bld) [#/Vol]Ordered By: Ayanna Vicente on 09-30-2022 Basophils (Bld) [#/Vol]0.0 10*3/uL0.0-0.2FMercy Health St. Rita's Medical Center Basophils/100 WBC Auto (Bld)Ordered By: Ayanna Vicente on 71-32-6739Iyhwrtnue/100 WBC (Bld)0.3 %.[facility] HospitalBilirubin.total [Mass/volume] in Serum or PlasmaOrdered By: Ayanna Vicente on 62-02-0624Etzicwzhp [Mass/Vol]0.3 mg/dL0.3-1.0[facility] HospitalCalcium [Mass/volume] in Serum or PlasmaOrdered By: Ayanna Vicente on 36-33-8133Ikfjzvy [Mass/Vol]9.3 mg/dL8.6-10.3 [facility] HospitalCarbon dioxide, total [Moles/volume] in Serum or PlasmaOrdered By: Ayanna Vicente on 85-89-6322NL1 [Moles/Vol]30.4 mmol/L 21.0-31.0[facility] HospitalChloride [Moles/volume] in Serum or PlasmaOrdered By: Ayanna Vicente on 14-81-6550Zispinur [Moles/Vol]104 mmol/L98-107 [facility] HospitalCholesterol [Mass/volume] in Serum or Plasma Ordered By: Ayanna Vicente on 83-33-3153Mgvseixlqzn [Mass/Vol]117 mg/wN209-179 [facility] HospitalComment on above:Chol less than 200 mg/dl low riskChol 201-239 mg/dl borderline riskChol 240 mg/dl and greater high risk Cholesterol in LDL Calc [Mass/Vol]Ordered By: Ayanna Vicente on 09-30-2022 Cholesterol in LDL [Mass/Vol]35 mg/dL0-100[facility] Comment on above:LDL ATP III CLASSIFICATIONLDL less than 100 mg/dL OptimalLDL 100-129 mg/dL Near or above cyryuwqCYZ958-475 mg/dL Borderline highLDL 160-189 mg/dL HighLDL greater than 189 mg/dL Very highCholesterol in VLDL Calc [Mass/Vol]Ordered By: Ayanna Vicente on [id number] in VLDL [Mass/Vol]43 mg/dLOhio State East HospitalCreatinine [Mass/volume] in Serum or PlasmaOrdered By: Ayanna Vicente on [id number] [Mass/Vol]1.25 mg/dL 0.60-1.20[facility] HospitalEosinophils Auto (Bld) [#/Vol]Ordered By: Ayanna Vicente on 80-13-4426Mrpznujxfbf (Bld) [#/Vol]0.3 10*3/uL0.0-0.45 [facility] HospitalEosinophils/100 WBC Auto (Bld)Ordered By: Aynana Vicente on 32-28-5154Vngwdzdubsr/100 WBC (Bld)2.3 %.[facility] HospitalErythrocyte distribution width Auto (RBC) [Ratio]Ordered By: Ayanna Vicente on 18-44-1177Kutqgjbubuz distribution width (RBC) [Ratio]15.4 %11.9-15.3 [facility] HospitalGlobulin Calc (S) [Mass/Vol]Ordered By: Ayanna Vicente on 03-55-9438Uoxwrxft (S) [Mass/Vol]2.4 g/dLOhio State East HospitalGlucose [Mass/volume] in Serum or PlasmaOrdered By: Ayanna Vicente on 97-80-3023Hcxudli [Mass/Vol]135 mg/sS96-395LfubmqjdtOhio State East Hospital Comment on above:ADA recommended reference rangeRandom Glucose Reference Range is dependent on time and content of last meal. Glucose of more than 200 mg/dL in a nonstressed, ambulatory subject supports the diagnosisof Diabetes Mellitus. Glucose mean value [Mass/volume] in Blood Estimated from glycated hemoglobin Ordered By: Ayanna Vicente on 35-89-9934Heotzzb glucose Estimated from glycated hemoglobin (Bld) [Mass/Vol]203 mg/dLOhio State East HospitalHematocrit Auto (Bld) [Volume fraction]Ordered By: Ayanna Vicente on 48-96-2413Xnjdjfldfw (Bld) [Volume fraction]37.0 %34.0-46.4FMercy Health St. [facility] Hemoglobin A1c percentageOrdered By: Ayanna Vicente on 59-66-6523FvR7y (Bld) [Mass fraction]8.7 %4.3-5.6FMercy Health St. Rita's Medical CenterComment on above: Increased risk for diabetes: 5.7 - 6.4diabetes: >6.4glycemic control for adults with diabetes: <7.0Hemoglobin [Mass/volume] in BloodOrdered By: Ayanna Vicente on 35-99-3706Sipplgnyup (Bld) [Mass/Vol]12.1 g/dL11.8-15.4FMercy Health St. Rita's Medical CenterLaboratory - Chemistry and Chemistry - challengeOrdered By: Ayanna Vicente on 74-47-3531RAN/1.73 sq M.predicted MDRD (S/P/Bld) [Vol rate/Area]43.572 mL/min/{1.73_m2}[facility] HospitalLeukocytes [#/volume] corrected for nucleated erythrocytes in Blood by Automated counOrdered By: Ayanna Vicente on 21-19-1924KMS corrected for nucl RBC Auto (Bld) [#/Vol]15.2 10*3/uL3.8-11.6 [facility] HospitalLymphocytes Auto (Bld) [#/Vol]Ordered By: Ayanna Vicente on 08-10-9998Gawxijngwif (Bld) [#/Vol]10.5 10*3/uL1.00-4.8[facility] HospitalLymphocytes/100 WBC Auto (Bld)Ordered By: Ayanna Vicente on 38-26-4553Bhzmxpfccwc/100 WBC (Bld)69.4 %.[facility] HospitalMCH Auto (RBC) [Entitic mass]Ordered By: Ayanna Vicente on 06-77-6873SFA (RBC) [Entitic mass]28.4 pg24.7-34.3FMercy Health St. Rita's Medical CenterMCHC Auto (RBC) [Mass/Vol]Ordered By: Ayanna Vicente on 13-86-5951DDWL (RBC) [Mass/Vol]32.7 g/dL 32.0-35.0[facility] HospitalMCV Auto (RBC) [Entitic vol]Ordered By: Ayanna Vicente on 36-37-1615KRZ (RBC) [Entitic vol]86.9 fK95-865TonxykwuhOhio State East HospitalMicroalbumin [Mass/volume] in UrineOrdered By: Ayanna Vicente on 95-79-0824Zrkffbk DL <= 20 mg/L (U) [Mass/Vol]1.9 mg/dL0.0-1.8 [facility] HospitalMonocytes Auto (Bld) [#/Vol]Ordered By: Ayanna Vicente on 20-19-4524Zunxqysxr (Bld) [#/Vol]0.7 10*3/uL0.0-0.8[facility] HospitalMonocytes/100 WBC Auto (Bld)Ordered By: Ayanna Vicente on 09-30-2022 Monocytes/100 WBC (Bld)4.5 %.[facility] HospitalNeutrophils Auto (Bld) [#/Vol]Ordered By: Ayanna Vicente on 51-34-7356Uenjxvjrpdp (Bld) [#/Vol]3.6 10*3/uL1.8-7.7FMercy Health St. Rita's Medical CenterNeutrophils/100 WBC Auto (Bld) Ordered By: Ayanna Vicente on 22-26-8349Eidmjenlong/100 WBC (Bld)23.5 %.[facility] HospitalNo Panel InformationOrdered By: Ayanna Vicente on 52-56-5683Mcpgxtds Creatinine Clearance (ChemN/AFMercy Health St. Rita's Medical CenterNucleated erythrocytes [Presence] in Blood by Automated countOrdered By: Ayanna Vicente on 31-64-3910Xpkusqtpn RBC Auto Ql (Bld)0.6 /100{WBC}0-0.5FMercy Health St. Rita's Medical CenterOvalocyte detectionOrdered By: Ayanna Vicente on 81-70-4688Wyqufklkqf LM Ql (Bld)SlightOhio State East HospitalPlatelet adequacy [Presence] in Blood by Light microscopyOrdered By: Ayanna Vicente on 43-94-3373Clcenslsm LM Ql (Bld)NormalNormalOhio State East Hospital Platelet mean volume Auto (Bld) [Entitic vol]Ordered By: Ayanna Vicente on 99-94-1090Fnpnstrj mean volume (Bld) [Entitic vol]8.9 fL6.3-10.7FMercy Health St. Rita's Medical CenterPlatelet morphology finding [Identifier] in BloodOrdered By: Ayanna Vicente on 39-91-6926Idezswof morphology finding Nom (Bld)NormalNormal [facility] HospitalPlatelets Auto (Bld) [#/Vol]Ordered By: Ayanna Vicente on 82-16-1355Jwxpngzdm (Bld) [#/Vol]230 10*3/fT699-519CxdxtmeyuOhio State East HospitalPoikilocytosis [Presence] in Blood by Light microscopyOrdered By: Ayanna Vicente on 33-06-6803Rdinwzslfgmruf LM Ql (Bld)SlightOhio State East HospitalPotassium [Moles/volume] in Serum or PlasmaOrdered By: Ayanna Vicente on 66-31-6856Xolyrsput [Moles/Vol]4.5 mmol/L3.5-5.1FMercy Health St. Rita's Medical CenterProtein [Mass/volume] in Serum or PlasmaOrdered By: Ayanna Vicente on 91-97-7033Lpknoyd [Mass/Vol]6.7 g/dL6.4-8.9[facility] RBC Auto (Bld) [#/Vol]Ordered By: Ayanna Vicente on 15-68-2117PDT (Bld) [#/Vol] 4.26 10*6/uL3.60-5.00[facility] HospitalRBC morphologyOrdered By: Aynana Vicente on 76-20-6439RKF morphology finding Nom (Bld)N/AFProMedica Toledo Hospitalerum or plasma albumin/globulin mass ratioOrdered By: Ayanna Vicente on 71-03-4434Hnipjaa/Globulin [Mass ratio]1.8 {ratio}[facility] Clinicerum or plasma anion gap determinationOrdered By: Ayanna Vicente on 81-42-8658Lkles gap [Moles/Vol]12.1 mmol/L6.0-15.0[facility] Clinicerum or plasma high density lipoprotein (HDL) cholesterol measurement Ordered By: Ayanna Vicente on 77-11-2163Rgnckprizdk in HDL [Mass/Vol]39 mg/dL35-85 [facility] HospitalComment on above:HDL CHOL ATP-III CLASSIFICATION Cardiovascular RiskHDL > or equal to 60 mg/dL LOWHDL < 40 mg/dL HIGHSerum or plasma total cholesterol/high density lipoprotein (HDL) cholesterol mass ratOrdered By: Ayanna Vicente on 74-16-1987Dwhkgeuxwwt.total/Cholesterol in HDL [Mass ratio]3.0 {ratio}<5.0[facility] Clinicodium [Moles/volume] in Serum or PlasmaOrdered By: Ayanna Vicente on 42-97-1083Acfque [Moles/Vol]142 mmol/E767-863VoxnyazbjOhio State East HospitalThyrotropin [Units/volume] in Serum or PlasmaOrdered By: Ayanna Vicente on 44-57-7342TLE Qn 2.04 m[IU]/L0.45-5.33[facility] HospitalThyroxine (T4) free [Mass/volume] in Serum or PlasmaOrdered By: Ayanna Vicente on 29-20-6917Prmw T4 [Mass/Vol]0.86 ng/dL0.61-1.12[facility] HospitalTriglyceride [Mass/volume] in Serum or PlasmaOrdered By: Ayanna Vicente on 09-30-2022 Triglyceride [Mass/Vol]216 mg/dL0-149[facility] HospitalComment on above:TRIG ATP III CLASSIFICATIONTRIG less than 150 mg/dL NormalTRIG 150-199 mg/dL Borderline highTRIG 200-500 mg/dL High TRIG greater than 500 mg/dL Very highStandard traceable to the Center for Disease Conrtrol and Prevention (CDC) test method.Triiodothyronine (T3) Free [Mass/volume] in Serum or PlasmaOrdered By: Ayanna Vicente on 49-66-6876Rfzn T3 [Mass/Vol]3.13 pg/mL2.50-3.90[facility] HospitalUrea nitrogen [Mass/volume] in Serum or PlasmaOrdered By: Ayanna Vicente on 75-78-3311Tghs nitrogen [Mass/Vol]33 mg/dL7-25[facility] HospitalWBC Auto (Bld) [#/Vol]Ordered By: Ayanna Vicente on 59-38-9336AAS (Bld) [#/Vol]15.2 10*3/uL3.8-11.6FMercy Health St. Rita's [facility] Center No Panel InformationOrdered By: Ayanna Vicente on 35-96-922591320073-Fouxdbe Vitamin D Total49.9 ng/sU75-589UdielyaefOhio State East HospitalComment on above:VITAMIN D STATUS 25(OH)VITAMIN D RANGE (ng/mL) Deficient <20 Insufficient 20 to <03Hsoaseovye90 to 100Reference: Nile MF,Joon NC, Chon ROD, et al. Evaluation,treatment, and prevention of vitamin D deficiency; an Endocrine Society clinical practice guideline. JCEM. 2010; 96(7):1911-30.LD LACTATE DEHYDROon 78-59-8404KPV [Catalytic activity/Vol]202 U/L135 - 214 U/LCleveland ClinicAlbumin [Mass/volume] in Serum or PlasmaOrdered By: Ayanna Vicente on 49-83-0427Lsucpwz [Mass/Vol]3.5 g/dL3.2-5.5FMercy Health St. Rita's [facility] Center Basophils Auto (Bld) [#/Vol]Ordered By: Ayanna Vicente on 02-85-8103Kjupuxnpy (Bld) [#/Vol]N/[facility] CenterBasophils/100 WBC Auto (Bld) Ordered By: Ayanna Vicente on 83-10-3882Vdbsfjzze/100 WBC (Bld)N/[facility] CenterBlood anisocytosis detectionOrdered By: Ayanna Vicente on 73-10-8370Acwynylbttaz Ql (Bld)SlightOhio State East HospitalBlood hemoglobin measurement (mass/volume)Ordered By: Ayanna Vicente on 04-01-2022 Hemoglobin (Bld) [Mass/Vol]12.3 g/dL11.8-15.4FMercy Health St. Rita's [facility] Center Blood leukocytes automated count (number/volume)Ordered By: Ayanna Vicente on 42-42-0668MJZ (Bld) [#/Vol]12.0 10*3/uL4.5-11.0[facility] Cerebrospinal fluid unidentified cells/100 leukocytesOrdered By: Ayanna Vicente on 75-47-7087Vtcynlekkhzk cells/100 WBC (CSF)2 %0-0[facility] HospitalComment on above:PRO LYMPHOCYTECholesterol [Mass/volume] in Serum or PlasmaOrdered By: Ayanna Vicente on 77-02-8775Lxkvzgbskes [Mass/Vol]102 mg/dL 140-200[facility] HospitalComment on above:Chol less than 200 mg/dl low risk Chol 201-239 mg/dl borderline risk Chol 240 mg/dl and greater high riskChol less than 200 mg/dl low riskChol 201- 239 mg/dl borderline riskChol 240 mg/dl and greater high riskCholesterol in LDL Calc [Mass/Vol]Ordered By: Ayanna Vicente on 24-12-2880Ivtgygblfcp in LDL [Mass/Vol]27 mg/dL0-100[facility] HospitalComment on above:LDL ATP III CLASSIFICATION LDL less than 100 mg/dL Optimal LDL 100-129 mg/dL Near or above optimal LDL 130-159 mg/dL Borderline high LDL 160-189 mg/dL High LDL greater than 189 mg/dL Very highLDL ATP III CLASSIFICATIONLDL less than 100 mg/dL OptimalLDL 100-129 mg/dL Near or above gczmobzPWD106-693 mg/dL Borderline highLDL 160-189 mg/dL HighLDL greater than 189 mg/dL Very highCholesterol in VLDL Calc [Mass/Vol]Ordered By: Ayanna Vicente on 61-57-0230Crkiibaensk in VLDL [Mass/Vol]25 mg/dLOhio State East HospitalCreatinine and Glomerular filtration rate.predicted panel (S/P/Bld)Ordered By: Ayanna Vicente on 04-01-2022 Creatinine [Mass/Vol]0.84 mg/dL0.44-1.03[facility] Eosinophils Auto (Bld) [#/Vol]Ordered By: Ayanna Vicente on 16-29-7406Vaukoecgttz (Bld) [#/Vol]N/[facility] CenterEosinophils/100 WBC Auto (Bld) Ordered By: Ayanna Vicente on 09-53-3767Mhhrnuplftz/100 WBC (Bld)[facility] CenterErythrocyte distribution width Auto (RBC) [Ratio]Ordered By: Ayanna Vicente on 96-84-4176Dkbwcshfwak distribution width (RBC) [Ratio]17.0 % 11.9-15.3FMercy Health St. Rita's Medical CenterEstimated glomerular filtration rate (GFR) non- AmericanOrdered By: Ayanna Vicente on 09-57-5851BRI/1.73 sq M.predicted among non-blacks MDRD (S/P/Bld) [Vol rate/Area]> 60 mL/MinOhio State East HospitalGlobulin Calc (S) [Mass/Vol]Ordered By: Ayanna Vicente on 31-40-6885Efxpkghz (S) [Mass/Vol]2.9 g/dLOhio State East Hospital Glucose mean value [Mass/volume] in Blood Estimated from glycated hemoglobin Ordered By: Ayanna Vicente on 82-88-4788Wktibnh glucose Estimated from glycated hemoglobin (Bld) [Mass/Vol]255 mg/dLOhio State East HospitalHematocrit Auto (Bld) [Volume fraction]Ordered By: Ayanna Vicente on 47-80-0370Vrcowolmeb (Bld) [Volume fraction]37.9 %34.0-46.4FMercy Health St. Rita's [facility] Center Hemoglobin A1c percentageOrdered By: Ayanna Vicente on 67-97-8497ZqF5y (Bld) [Mass fraction]10.5 %4.3-5.6FMercy Health St. Rita's Medical CenterComment on above: Increased risk for diabetes: 5.7 - 6.4 diabetes: >6.4 glycemic control for adults with diabetes: <7.0Increased risk for diabetes: 5.7 - 6.4diabetes: >6.4glycemic control for adults with diabetes: <7.0Laboratory - Hematology and Cell countsOrdered By: Ayanna Vicente on 04-10-9193Xeblregug RBC/100 WBC (Bld) [Ratio]0.2 %0-0.5FMercy Health St. Rita's Medical CenterLymphocytes Auto (Bld) [#/Vol]Ordered By: Ayanna Vicente on 58-60-1259Pqaesukrwqu (Bld) [#/Vol]N/[facility] CenterLymphocytes/100 WBC Auto (Bld)Ordered By: Ayanna Vicente on 33-84-0686Zswomrgrniz/100 WBC (Bld)N/[facility] CenterLymphocytes/100 WBC (Bld)60 %18-42[facility] HospitalLymphocytes/100 WBC Manual cnt (Bld)Ordered By: Ayanna Vicente on 04-01-2022 Lymphocytes/100 WBC (Bld)3 %0-12[facility] HospitalH Auto (RBC) [Entitic mass]Ordered By: Ayanna Vicente on 46-22-4620ASU (RBC) [Entitic mass]28.3 pg24.7-34.3FSouthern [facility] Medical CenterHC Auto (RBC) [Mass/Vol]Ordered By: Ayanna Vicente on 96-69-8019JDPW (RBC) [Mass/Vol]32.4 g/dL32.0-35.0[facility] HospitalMCV Auto (RBC) [Entitic vol]Ordered By: Ayanna Vicente on 43-92-4215ZKI (RBC) [Entitic vol]87.6 fG63-482OykhhxjovOhio State East Hospital Manual blood monocytes/100 leukocytesOrdered By: Ayanna Vicente on 04-01-2022 Monocytes/100 WBC (Bld)3 %1-3FMercy Health St. Rita's Medical CenterMonocytes Auto (Bld) [#/Vol]Ordered By: Ayanna Vicente on 49-97-4464Skpmoesxg (Bld) [#/Vol]N/A [facility] HospitalMonocytes/100 WBC Auto (Bld)Ordered By: Ayanna Vicente on 73-49-9023Iivhmlbmz/100 WBC (Bld)N/[facility] Neutrophils Auto (Bld) [#/Vol]Ordered By: Ayanna Vicente on 23-15-7463Uumibchhbin (Bld) [#/Vol]N/[facility] CenterNeutrophils/100 WBC Auto (Bld) Ordered By: Ayanna Vicente on 24-50-0973Znmkltjvdig/100 WBC (Bld)N/[facility] CenterNo Panel InformationOrdered By: Ayanna Vicente on 07-93-1553Hkiebhzkd GFR ()> 60 mL/MinOhio State East HospitalComment on above:GFR estimated reference range: According to KDOQI guidelines, <60 ml/min/1.73m2 is sufficient todiagnose a patient with chronic kidney disease.Pharmacy Creatinine Clearance (ChemN/[facility] CenterPlatelet EstimateNormalNormSumma HealthPlatelet Morphology CommentNormalNormFirelands Regional Medical Centermudge CellsFew [facility] HospitalPlatelet mean volume Auto (Bld) [Entitic vol] Ordered By: Ayanna Vicente on 35-14-6552Vgrjwsjr mean volume (Bld) [Entitic vol] 9.3 fL6.3-10.7FMercy Health St. Rita's Medical CenterPlatelets Auto (Bld) [#/Vol] Ordered By: Ayanna Vicente on 27-71-1143Wsbiparxf (Bld) [#/Vol]224 10*3/rR063-139 [facility] HospitalProtein [Mass/volume] in Serum or PlasmaOrdered By: Ayanna Vicente on 58-52-2891Fdqgenr [Mass/Vol]6.4 g/dL6.1-7.9[facility] HospitalRBC Auto (Bld) [#/Vol]Ordered By: Ayanna Vicente on 82-81-5532JQJ (Bld) [#/Vol]4.33 10*6/uL3.60-5.00[facility] HospitalRBC morphologyOrdered By: Ayanna Vicente on 07-33-8575WDH morphology finding Nom (Bld)N/AFProMedica Toledo Hospitalegmented neutrophils/100 WBC Manual cnt (Bld)Ordered By: Ayanna Vicente on 85-88-1377Knxzdwwll neutrophils/100 WBC (Bld)29 %50-70[facility] Clinicerum or plasma alanine aminotransferase measurement without P-5'-P (enzymatic activiOrdered By: Ayanna Vicente on 67-05-5368PQL No additional P-5'-P [Catalytic activity/Vol]24 U/L10-60 [facility] Clinicerum or plasma albumin/globulin mass ratio Ordered By: Ayanna Vicente on 82-96-4040Rzhadni/Globulin [Mass ratio]1.2 {ratio} [facility] Clinicerum or plasma alkaline phosphatase measurement (enzymatic activity/volume)Ordered By: Ayanna Vicente on 77-56-5014VJV [Catalytic activity/Vol]75 U/L19-09JlcgcqdfjCleveland Clinicerum or plasma anion gap determinationOrdered By: Ayanna Vicente on 09-41-0462Gsxgj gap [Moles/Vol]15.8 mmol/L6.0-15.0[facility] Clinicerum or plasma aspartate aminotransferase measurement (enzymatic activity/volume)Ordered By: Ayanna Vicente on 97-38-1664VWX [Catalytic activity/Vol]26 U/R47-96VenoazjgtCleveland Clinicerum or plasma calcium measurement (mass/volume)Ordered By: Ayanna Vicente on 88-65-3726Nxufnyw [Mass/Vol]9.3 mg/dL8.2-10.2FProMedica Toledo Hospitalerum or plasma chloride measurement (moles/volume) Ordered By: Ayanna Vicente on 13-54-1139Jxmaqwrb [Moles/Vol]103 mmol/L95-114 [facility] Clinicerum or plasma glucose measurement (mass/volume)Ordered By: Ayanna Vicente on 50-10-9988Pcyjman [Mass/Vol]163 mg/dL 70-100[facility] HospitalComment on above:ADA recommended reference range Random [...] (HDL) cholesterol measurementOrdered By: Ayanna Vicente on 27-53-9202Cofzojolezw in HDL [Mass/Vol]50 mg/jH58-59JbotyobcwOhio State East HospitalComment on above:HDL CHOL ATP-III CLASSIFICATION Cardiovascular Risk HDL > or equal to 60 mg/dL LOW HDL < 40 mg/dL HIGHHDL CHOL ATP-III CLASSIFICATION Cardiovascular RiskHDL > or equal to 60 mg/dL LOWHDL < 40 mg/dL HIGHSerum or plasma potassium measurement (moles/volume)Ordered By: Ayanna Vicente on 10-34-6807Tpmkwmpqs [Moles/Vol]4.4 mmol/L3.5-5.1FProMedica Toledo Hospitalerum or plasma sodium measurement (moles/volume)Ordered By: Ayanna Vicente on 81-08-6756Kpxltp [Moles/Vol]141 mmol/G125-239DlvmypyrnCleveland Clinicerum or plasma total bilirubin measurement (mass/volume)Ordered By: Ayanna Vicente on 94-73-6597Lzujfqxrz [Mass/Vol]0.3 mg/dL0.3-1.2FProMedica Toledo Hospitalerum or plasma total carbon dioxide measurement (moles/volume)Ordered By: Ayanna Vicente on 04-01-2022 CO2 [Moles/Vol]26.6 mmol/L22.0-30.0[facility] Clinicerum or plasma total cholesterol/high density lipoprotein (HDL) cholesterol mass rat Ordered By: Ayanna Vicente on 25-69-4936Nfjhbeccvbm.total/Cholesterol in HDL [Mass ratio]2.0 {ratio}<5.0[facility] Clinicerum or plasma urea nitrogen measurement (mass/volume)Ordered By: Ayanna Vicente on 13-16-5563Xntv nitrogen [Mass/Vol]12 mg/dL9-23[facility] HospitalTS DL <= 0.005 mIU/L QnOrdered By: Ayanna Vicente on 78-12-5618NZN Qn1.11 m[IU]/L0.45-5.33 [facility] HospitalThyroxine (T4) free [Mass/volume] in Serum or PlasmaOrdered By: Ayanna Vicente on 46-74-5171Uhmv T4 [Mass/Vol]1.02 ng/dL 0.61-1.12[facility] HospitalTriglyceride [Mass/volume] in Serum or PlasmaOrdered By: Ayanna Vicente on 64-76-3913Ndshepegbcwv [Mass/Vol]125 mg/dL 35-149[facility] HospitalComment on above:TRIG ATP III CLASSIFICATION TRIG [...] Serum or PlasmaOrdered By: Ayanna Vicente on 05-52-7678Tjgq T3 [Mass/Vol]2.81 pg/mL2.50-3.90[facility] HospitalGlucose Glucometer (BldC) [Mass/Vol]Ordered By: Galo Max on 24-25-2518Ccmdvpv [Mass/Vol]117 mg/dLOhio State East Hospital Comment on above:Random Glucose Reference Range is dependent on time and content of last meal. Glucose of more than 200 mg/dL in a nonstressed, ambulatory subject supports the diagnosis of Diabetes Mellitus.Basophils Auto (Bld) [#/Vol] Ordered By: Ashley Ramos on 88-81-2908Fznuvwnsn (Bld) [#/Vol]0.0 10*3/uL 0.0-0.2FMercy Health St. Rita's Medical CenterBasophils/100 WBC Auto (Bld)Ordered By: Ashley Ramos on 36-09-7242Hjtvwtzcx/100 WBC (Bld)0.3 %.[facility] HospitalBlood hemoglobin measurement (mass/volume)Ordered By: Ashley Ramos on 17-70-4557Wickzbyaow (Bld) [Mass/Vol]11.0 g/dL11.8-15.4FMercy Health St. Rita's Medical CenterBlood leukocytes automated count (number/volume)Ordered By: Ashley Ramos on 30-56-0298ZNA (Bld) [#/Vol]9.5 10*3/uL4.5-11.0[facility] HospitalCreatinine and Glomerular filtration rate.predicted panel (S/P/Bld)Ordered By: Ashley Ramos on 54-57-9209Hsweiduwlj [Mass/Vol]0.78 mg/dL0.44-1.03[facility] HospitalEosinophils Auto (Bld) [#/Vol] Ordered By: Ashley Ramos on 40-36-8671Lakjvkffodc (Bld) [#/Vol]0.3 10*3/uL 0.0-0.45[facility] HospitalEosinophils/100 WBC Auto (Bld)Ordered By: Ashley Ramos on 08-69-5120Cbhmmkctyre/100 WBC (Bld)3.6 %.[facility] HospitalErythrocyte distribution width Auto (RBC) [Ratio]Ordered By: Ashley Ramos on 93-17-3431Dknsvmpmkrt distribution width (RBC) [Ratio] 15.4 %11.9-15.3FMercy Health St. Rita's Medical CenterEstimated glomerular filtration rate (GFR) non- AmericanOrdered By: Ashley Ramos on 01-25-2022 GFR/1.73 sq M.predicted among non-blacks MDRD (S/P/Bld) [Vol rate/Area]> 60 mL/MinOhio State East HospitalHematocrit Auto (Bld) [Volume fraction] Ordered By: Ashley Ramos on 79-37-6728Iwzysqzcir (Bld) [Volume fraction]33.2 %34.0-46.4FMercy Health St. Rita's Medical CenterLaboratory - Hematology and Cell countsOrdered By: Ashley Ramos on 24-57-2674Vmxgihint RBC/100 WBC (Bld) [Ratio]0.2 %0-0.5FMercy Health St. Rita's Medical CenterLymphocytes Auto (Bld) [#/Vol] Ordered By: Ashley Ramos on 64-01-6797Ifainpuvysa (Bld) [#/Vol]6.4 10*3/uL 1.00-4.8[facility] HospitalLymphocytes/100 WBC Auto (Bld)Ordered By: Ashley Ramos on 25-90-0817Mvnyaopliwp/100 WBC (Bld)67.6 %.[facility] Auto (RBC) [Entitic mass]Ordered By: Ashley Ramos on 34-16-5086PPB (RBC) [Entitic mass]28.7 pg24.7-34.3FSouthern [facility] Medical CenterHC Auto (RBC) [Mass/Vol]Ordered By: Ashley Ramos on 59-39-6153TJCS (RBC) [Mass/Vol]33.3 g/dL32.0-35.0[facility] HospitalMCV Auto (RBC) [Entitic vol]Ordered By: Ashley Ramos on 60-93-6260AFZ (RBC) [Entitic vol]86.3 rK73-964TosvqnfgnOhio State East HospitalMonocytes Auto (Bld) [#/Vol] Ordered By: Ashley Ramos on 68-17-3333Rncakeioe (Bld) [#/Vol]0.7 10*3/uL 0.0-0.8[facility] HospitalMonocytes/100 WBC Auto (Bld)Ordered By: Ashley Ramos on 73-16-2780Uwiklsiog/100 WBC (Bld)7.4 %.[facility] HospitalNeutrophils Auto (Bld) [#/Vol]Ordered By: Ashley Ramos on 44-79-5223Rdrtxngxzyi (Bld) [#/Vol]2.0 10*3/uL1.8-7.7FMercy Health St. Rita's Medical CenterNeutrophils/100 WBC Auto (Bld)Ordered By: Ashley Ramos on 01-25-2022 Neutrophils/100 WBC (Bld)21.1 %.[facility] HospitalNo Panel InformationOrdered By: Ashley Ramos on 73-00-4326Araoqskhl GFR ()> 60 mL/MinOhio State East HospitalComment on above:GFR estimated reference range: According to KDOQI guidelines, <60 ml/min/1.73m2 is sufficient todiagnose a patient with chronic kidney disease.Pharmacy Creatinine Clearance (Chem76.46[facility] HospitalPlatelet EstimateNormal NormalOhio State East HospitalPlatelet Morphology CommentNormalNormal Cleveland Clinicmudge CellsFewOhio State East HospitalPlatelet mean volume Auto (Bld) [Entitic vol]Ordered By: Ashley Ramos on 18-47-3679Eydwafsl mean volume (Bld) [Entitic vol]8.6 fL6.3-10.7FMercy Health St. Rita's Medical CenterPlatelets Auto (Bld) [#/Vol]Ordered By: Ashley Ramos on 40-89-5445Kftnvagwb (Bld) [#/Vol]240 10*3/gC481-790ZagbabhpgOhio State East HospitalRBC Auto (Bld) [#/Vol]Ordered By: Ashley Ramos on 45-77-0790NEV (Bld) [#/Vol]3.84 10*6/uL3.60-5.00[facility] morphology Ordered By: Ashley Ramos on 99-78-9775QNI morphology finding Nom (Bld)Normal [facility] Clinicerum or plasma calcium measurement (mass/volume)Ordered By: Ashley Ramos on 42-66-7299Fmsmxhw [Mass/Vol]8.7 mg/dL8.2-10.2FProMedica Toledo Hospitalerum or plasma chloride measurement (moles/volume)Ordered By: Ashley Ramos on 16-08-7537Vwmkcdmc [Moles/Vol]101 mmol/W60-555SknbpdusrCleveland Clinicerum or plasma glucose measurement (mass/volume)Ordered By: Ashley Ramos on 01-25-2022 Glucose [Mass/Vol]133 mg/jA05-600IjvucojzoOhio State East HospitalComment on above:ADA recommended reference range Random [...] potassium measurement (moles/volume)Ordered By: Ashley Ramos on 53-39-4097Qlvjtljeg [Moles/Vol]4.0 mmol/L3.5-5.1 [facility] Clinicerum or plasma sodium measurement (moles/volume)Ordered By: Ashley Ramos on 91-48-7342Xrioef [Moles/Vol]141 mmol/G750-421AngrhmoapCleveland Clinicerum or plasma total carbon dioxide measurement (moles/volume)Ordered By: Ashley Ramos on 39-28-3261LO4 [Moles/Vol]30.7 mmol/L22.0-30.0[facility] Clinicerum or plasma urea nitrogen measurement (mass/volume)Ordered By: Ashley Ramos on 97-50-3781Rqwq nitrogen [Mass/Vol]14 mg/dL9-23[facility] No Panel InformationOrdered By: Galo Max on 27-33-6191Kkiudoz Glucose CommentGlu2: cleaned meterOhio State East HospitalBacterial blood cultureOrdered By: Butch Redding on 25-42-5674Vscapbbx identified Cx Nom (Bld)NO GROWTH 5 DAYSOhio State East HospitalAlbumin [Mass/volume] in Serum or PlasmaOrdered By: Galo Max on 69-24-8688Tbaoaxi [Mass/Vol]3.1 g/dL3.2-5.5 [facility] HospitalBlood acanthocytes detection by light microscopyOrdered By: Galo Max on 29-00-8832Eneqczdavbjn LM Ql (Bld)Rare [facility] HospitalGlobulin Calc (S) [Mass/Vol]Ordered By: Galo Max on 22-04-9872Kgfnxgru (S) [Mass/Vol]3.0 g/dLOhio State East HospitalNo Panel InformationOrdered By: Galo Max on 30-34-3023OQU CommentSee commentOhio State East HospitalComment on above:Slide referred to pathologist for reviewProtein [Mass/volume] in Serum or PlasmaOrdered By: Galo Max on 02-11-4742Ddoczfp [Mass/Vol]6.1 g/dL6.1-7.9Cleveland Clinicerum or plasma alanine aminotransferase measurement without P-5'-P (enzymatic activiOrdered By: Galo Max on 49-20-1667DFA No additional P-5'-P [Catalytic activity/Vol]24 U/U03-11BvkvhsrmsCleveland Clinicerum or plasma albumin/globulin mass ratioOrdered By: Galo Max on 01-16-2022 Albumin/Globulin [Mass ratio]1.0 {ratio}Cleveland Clinicerum or plasma alkaline phosphatase measurement (enzymatic activity/volume)Ordered By: Galo Max on 29-64-0552BDB [Catalytic activity/Vol]88 U/G60-62AdlckltqeCleveland Clinicerum or plasma aspartate aminotransferase measurement (enzymatic activity/volume)Ordered By: Galo Max on 87-41-6713SLV [Catalytic activity/Vol]23 U/M58-57UiuqobvveCleveland Clinicerum or plasma prealbumin measurement (mass/volume)Ordered By: Galo Max on 01-16-2022 Prealbumin [Mass/Vol]22.1 mg/dL18.0-38.0Cleveland Clinicerum or plasma total bilirubin measurement (mass/volume)Ordered By: Galo Max on 20-84-4888Ahjyexaid [Mass/Vol]0.6 mg/dL0.3-1.2FMercy Health St[facility] Creatinine and Glomerular filtration rate.predicted panel (S/P/Bld)Ordered By: Bertram Garrison on 05-75-1064Vjwzekblaw [Mass/Vol]0.80 mg/dL0.44-1.03[facility] HospitalComment on above:Delta: 1.35 on 01/14/22Estimated glomerular filtration rate (GFR) non- AmericanOrdered By: Bertram Garrison on 15-18-6762RXK/1.73 sq M.predicted among non-blacks MDRD (S/P/Bld) [Vol rate/Area]> 60 mL/MinOhio State East HospitalGlucose Glucometer (BldC) [Mass/Vol]Ordered By: Bertram Garrison on 84-88-1430Dnzkvlg [Mass/Vol]226 mg/dL [facility] HospitalComment on above:Random Glucose Reference Range is dependent on time and content of last meal. Glucose of more than 200 mg/dL in a nonstressed, ambulatory subject supports the diagnosis of Diabetes Mellitus.No Panel InformationOrdered By: Bertram Garrison on 07-15-5788Goxnslm Glucose CommentGlu2: cleaned meterOhio State East HospitalEstimated GFR ()> 60 mL/MinOhio State East HospitalComment on above: GFR estimated reference range: According to KDOQI guidelines, <60 ml/min/1.73m2 is sufficient todiagnose a patient with chronic kidney disease.Pharmacy Creatinine Clearance (Chem75.85C[facility] Clinicerum or plasma calcium measurement (mass/volume)Ordered By: Bertram Garrison on 20-24-5729Ccazudt [Mass/Vol]9.2 mg/dL8.2-10.2FProMedica Toledo Hospitalerum or plasma chloride measurement (moles/volume)Ordered By: Bertram Garrison on 01-15-2022 Chloride [Moles/Vol]99 mmol/I99-159XzjcasdbvCleveland Clinicerum or plasma glucose measurement (mass/volume)Ordered By: Bertram Garrison on 01-15-2022 Glucose [Mass/Vol]293 mg/fY13-023SlejgvhqoOhio State East HospitalComment on above:ADA recommended reference range Random Glucose Reference Range is dependent on time and content of last meal. Glucose of more than 200 mg/dL in a nonstressed, ambulatory subject supports the diagnosis of Diabetes Mellitus.Serum or plasma potassium measurement (moles/volume)Ordered By: Bertram Garrison on 66-48-4743Axkxctwss [Moles/Vol]4.3 mmol/L3.5-5.1FProMedica Toledo Hospitalerum or plasma sodium measurement (moles/volume)Ordered By: Bertram Garrison on 11-95-6012Hdfgll [Moles/Vol]136 mmol/C766-734HfxqgrufqCleveland Clinicerum or plasma total carbon dioxide measurement (moles/volume)Ordered By: Bertram Garrison on 50-53-9748SJ6 [Moles/Vol]29.1 mmol/L22.0-30.0C[facility] Clinicerum or plasma urea nitrogen measurement (mass/volume)Ordered By: Bertram Garrison on 01-15-2022 Urea nitrogen [Mass/Vol]23 mg/dL9-23[facility] HospitalUrine culture routineOrdered By: Butch Redding on 26-99-4194Xrjvzeqk identified Cx Nom (U)Enterococcus faecalisOhio State East HospitalBasophils Auto (Bld) [#/Vol]Ordered By: Bertram Garrison on 52-25-7943Fmjmgvpge (Bld) [#/Vol]0.1 10*3/uL 0.0-0.2FMercy Health St. Rita's Medical CenterBasophils/100 WBC Auto (Bld)Ordered By: Bertram Garrison on 72-03-7284Hbvtgcreo/100 WBC (Bld)0.6 %.[facility] HospitalBlood acanthocytes detection by light microscopyOrdered By: Bertram Garrison on 80-62-8654Lspsbtgsaioy LM Ql (Bld)FewOhio State East HospitalBlood hemoglobin measurement (mass/volume)Ordered By: Bertram Garrison on 60-67-6948Bdmfsgcjiw (Bld) [Mass/Vol]11.7 g/dL11.8-15.4FMercy Health St. Rita's Medical CenterBlood leukocytes automated count (number/volume)Ordered By: Bertram Garrison on 46-84-4699VVQ (Bld) [#/Vol]11.5 10*3/uL4.5-11.0[facility] HospitalEosinophils Auto (Bld) [#/Vol]Ordered By: Bertram Garrison on 67-04-1693Begmtdaaoxx (Bld) [#/Vol]0.4 10*3/uL0.0-0.45[facility] HospitalEosinophils/100 WBC Auto (Bld)Ordered By: Bertram Garrison on 01-14-2022 Eosinophils/100 WBC (Bld)3.3 %.[facility] HospitalErythrocyte distribution width Auto (RBC) [Ratio]Ordered By: Bertram Garrison on 01-14-2022 Erythrocyte distribution width (RBC) [Ratio]14.4 %11.9-15.3FMercy Health St. Rita's Medical CenterHematocrit Auto (Bld) [Volume fraction]Ordered By: Bertram Garrison on 83-95-8975Ysxadtftxb (Bld) [Volume fraction]35.4 %34.0-46.4FMercy Health St. Rita's Medical CenterLaboratory - Hematology and Cell countsOrdered By: Bertram Garrison on 51-60-1868Yuouifmdm RBC/100 WBC (Bld) [Ratio]0.3 %0-0.5FMercy Health St. Rita's Medical CenterLymphocytes Auto (Bld) [#/Vol]Ordered By: Bertram Garrison on 76-98-4909Iiapgkjsxhm (Bld) [#/Vol]7.2 10*3/uL1.00-4.8[facility] HospitalLymphocytes/100 WBC Auto (Bld)Ordered By: Bertram Garrison on 01-14-2022 Lymphocytes/100 WBC (Bld)62.9 %.[facility] Auto (RBC) [Entitic mass]Ordered By: Bertram Garrison on 82-93-6216KER (RBC) [Entitic mass] 28.4 pg24.7-34.3FMercy Health St. Rita's Medical CenterMCHC Auto (RBC) [Mass/Vol] Ordered By: Bertram Garrison on 13-76-3979KSMD (RBC) [Mass/Vol]32.9 g/dL32.0-35.0 [facility] HospitalMCV Auto (RBC) [Entitic vol]Ordered By: Bertram Garrison on 51-73-5968OXH (RBC) [Entitic vol]86.1 xT39-944QziacecjbOhio State East HospitalMonocytes Auto (Bld) [#/Vol]Ordered By: Bertram Garrison on 80-24-6864Gomfysfhr (Bld) [#/Vol]0.6 10*3/uL0.0-0.8[facility] HospitalMonocytes/100 WBC Auto (Bld)Ordered By: Bertram Garrison on 01-14-2022 Monocytes/100 WBC (Bld)5.0 %.[facility] HospitalNeutrophils Auto (Bld) [#/Vol]Ordered By: Bertram Garrison on 55-06-3993Dyebbzbvbya (Bld) [#/Vol]3.2 10*3/uL1.8-7.7FMercy Health St. Rita's Medical CenterNeutrophils/100 WBC Auto (Bld) Ordered By: Bertram Garrison on 37-52-8608Yggmkbrgnmu/100 WBC (Bld)28.2 %.[facility] HospitalNo Panel InformationOrdered By: Bertram Garrison on 37-90-2817Mmrdugvi EstimateNormalNormSumma HealthPlatelet Morphology CommentNormalNormSumma HealthPlatelet mean volume Auto (Bld) [Entitic vol]Ordered By: Bertram Garrison on 36-45-6642Kacorfvv mean volume (Bld) [Entitic vol]9.8 fL6.3-10.7FMercy Health St. Rita's Medical Center Platelets Auto (Bld) [#/Vol]Ordered By: Bertram Garrison on 49-58-2182Niudlmxvl (Bld) [#/Vol]277 10*3/cM374-480TziqqkjoeOhio State East HospitalRBC Auto (Bld) [#/Vol]Ordered By: Bertram Garrison on 90-16-4801YAV (Bld) [#/Vol]4.11 10*6/uL 3.60-5.00[facility] HospitalRBC morphologyOrdered By: Bertram Garrison on 89-30-3781PQD morphology finding Nom (Bld)NormalOhio State East HospitalAlbumin [Mass/volume] in Serum or PlasmaOrdered By: Butch Redding on 06-05-2660Dvxcols [Mass/Vol]3.1 g/dL3.2-5.5FMercy Health St. Rita's Medical Center Automated erythrocytes count in urine sediment (number/area)Ordered By: Butch Redding on 61-88-9108HGA Auto (Urine sed) [#/Area]0-1 [HPF]0-4FMercy Health St. Rita's Medical CenterAutomated leukocytes count in urine sediment (number/area)Ordered By: Butch Redding on 06-09-2354DUB Auto (Urine sed) [#/Area]50-100 [HPF]0-4 [facility] HospitalBilirubin Test strip Ql (U)Ordered By: Butch Redding on 51-92-6970Vspczjius Ql (U)1+NegativeOhio State East Hospital COVID-19 Positive/NegativeOrdered By: Butch Redding on 35-10-2669UUIF-CoV-2 (COVID- 19) N gene FARRAH+probe Ql (Resp)NegativeNegativeOhio State East Hospital Comment on above:Testing for SARS-CoV-2 by RT-PCR This test was developed and its performance characteristics determined by [employer] ([employer]) and validated at the [facility]. This test has not been FDA [...] revoked sooner.COVID-19 SOFIAOrdered By: Butch Redding on 11-12-0392UEDK-CoV+SARS-CoV-2 (COVID-19) Ag IA.rapid Ql (Resp)NegativeNegative [facility] HospitalComment on above:This is a duplicate Brianna SARS Antigen (DUSTIN) result to be used for statistical tracking purpose only.Color Auto (U)Ordered By: Butch Redding on 65-94-8687Uxcan (U)Dark yellowYellowOhio State East HospitalGlobulin Calc (S) [Mass/Vol]Ordered By: Butch Redding on 22-81-1637Hhlruikx (S) [Mass/Vol]3.0 g/dLOhio State East Hospital Ketones Auto test strip (U) [Mass/Vol]Ordered By: Butch Redding on 01-13-2022 Ketones (U) [Mass/Vol]TraceNegativeOhio State East HospitalLaboratory - UrinalysisOrdered By: Butch Redding on 92-43-2616Gwsijtj casts LM Ql (Urine sed)9- 19 [LPF]0-8[facility] HospitalNitrite Test strip Ql (U)Ordered By: Butch Redding on 06-82-1572Cirlsaq Ql (U)NegativeNegativeOhio State East HospitalNo Panel InformationOrdered By: Butch Redding on 61-83-4075Rsnwlm CellsFewCleveland ClinicARS Antigen (LFIA)[facility] HospitalProtein Auto test strip (U) [Mass/Vol]Ordered By: Butch Redding on 29-39-0777Wvqytra (U) [Mass/Vol]30 mg/dLNegSelect Medical [facility] Clinic Rehabilitation Hospital, AvonProtein [Mass/volume] in Serum or PlasmaOrdered By: Butch Redding on 72-70-1033Bbmmtvo [Mass/Vol]6.1 g/dL6.1-7.9[facility] Serum or plasma alanine aminotransferase measurement without P-5'-P (enzymatic activiOrdered By: Butch Redding on 15-32-2123SKW No additional P-5'-P [Catalytic activity/Vol]27 U/D06-39UdoslhjsaCleveland Clinicerum or plasma albumin/globulin mass ratioOrdered By: Butch Redding on 71-66-4885Qfcqeey/Globulin [Mass ratio]1.0 {ratio}[facility] Clinicerum or plasma alkaline phosphatase measurement (enzymatic activity/volume)Ordered By: Butch Redding on 72-68-9916KLV [Catalytic activity/Vol]95 U/Z24-97KpullxnlrCleveland Clinicerum or plasma aspartate aminotransferase measurement (enzymatic activity/volume)Ordered By: Butch Redding on 61-11-1112MXC [Catalytic activity/Vol] 27 U/G47-25SoribpvdnCleveland Clinicerum or plasma total bilirubin measurement (mass/volume)Ordered By: Butch Redding on 96-96-7068Igxrwhgzq [Mass/Vol]0.6 mg/dL0.3-1.2FProMedica Toledo Hospitalpecific gravity Auto test strip (U) [Rel density]Ordered By: Butch Redding on 70-75-9179Ndsquvsq gravity (U) [Rel density]1.0291.001-1.030[facility] Squamous epithelial cells detection in urine sediment by light microscopyOrdered By: Butch Redding on 28-46-1547Zgaprlixao cells.squamous LM Ql (Urine sed)1-2 [HPF] 0-1FMercy Health St. Rita's Medical CenterTroponin I.cardiac [Mass/volume] in Serum or Plasma by High sensitivity methodOrdered By: Butch Redding on 49-32-0505Jzeukmap I.cardiac High sensitivity method [Mass/Vol]4 pg/mL0-15[facility] HospitalUrine bacteria detection by automated methodOrdered By: Butch Redding on 68-58-7794Jonrzbtw Auto Ql (U)2+None SeenOhio State East Hospital Urine clarity by refractometry automatedOrdered By: Butch Redding on 01-13-2022 Clarity Refractometry automated (U)CloudyCleChillicothe Hospital Urine glucose measurement by automated test strip (mass/volume)Ordered By: Butch Redding on 21-62-5616Dlmlhoj Auto test strip (U) [Mass/Vol]Normal mg/dLNormal [facility] HospitalUrine hemoglobin detection by automated test stripOrdered By: Butch Redding on 52-88-2139Gkwebojiye Auto test strip Ql (U) NegativeNegativeOhio State East HospitalUrine leukocyte esterase detection by automated test stripOrdered By: Butch Redding on 94-11-7393Hndhqwshw esterase Auto test strip Ql (U)3+NegativeOhio State East Hospital Urobilinogen Auto test strip (U) [Mass/Vol]Ordered By: Butch Redding on 01-13-2022 Urobilinogen (U) [Mass/Vol]Normal mg/dLNormalOhio State East HospitalpH Auto test strip (U)Ordered By: Butch Redding on 76-59-9465gX (U)5.0 [pH]5.0-9.0 [facility] CARDIAC STRESS/REST INJECTIONon 01-04-2021 [facility] CARDIAC STRESS/REST INJECTIONMRN: [id number] Patient Name: KATHY WASHBURN STUDY: MYOCARDIAL PERFUSION STRESS TEST WITH LEXISCAN Performing facility: [facility], [address] [place] [address], [address], [place], [place] [address] Provider: Osmel Fernandes MD, [facility] PCP: Dr. Lyndon Vicente Supervising provider: Osmel Fernandes MD, [facility] INDICATION: Chest Pain; HTN Hyperlipidemia Diabetes Dyspnea HISTORY: Gender: F; Age: 80 y/o ; Height: 175.26 cm; Weight: 143.2717035 kg. High Cholesterol; Diabetes; HTN; Chest Pain; SOB; Quit smoking Unknown years ago. COMPARISON: Previous nuclear testing completed at [facility]. ACCESSION NUMBER(S): [id number]; [id number]; [id number] ORDERING CLINICIAN: MONET FERNANDES TECHNIQUE: ONE DAY [...] for comparison. Electronically signed by: SARAH HODGES MDHoly Redeemer Hospital Vital Signs Date TimeVital SignValuePerforming AchailwbzGcgehyyr64-40-6444 14:29-0500Body aslviw512.26 cmDavileonila Sakina DO Work Phone: [phone] [place], [place] 4727011-05-2025 14:29-0500 Body mass index (BMI) [Ratio]34.5 kg/v1Bbafk Sakina DO Work Phone: [phone] [place], [place] 4727011-05-2025 14:29-0500 Body ojghyadtoxw41.2 [degF]Ayanna Sakina DO Work Phone: [phone] [place], [place] 4727011-05-2025 14:29-0500 Body .14 kgDavileonila Sakina DO Work Phone: [phone] [place], [place] 4727011-05-2025 14:29-0500 Diastolic blood mm[Hg]Ayanna Vicente DO Work Phone: [phone] [place], [place] 4727011-05-2025 14:29-0500 Heart rate82 /minDavileonila Sakina DO Work Phone: [phone] [place], [place] 4727011-05-2025 14:29-0500 SaO2% (BldA) [Mass fraction]94 %Ayanna Vicente DO Work Phone: [phone] [place], [place] 4727011-05-2025 14:29-0500 Systolic blood wxhxxzli930 mm[Hg]Ayanna Vicente DO Work Phone: [phone])[address] [place], [place] 4727010-16-2025 11:010400 Body diwhsw947.26 cmDaperi Ogabbi DO Work Phone: [phone])[address] [place], [place] 4727010-16-2025 11:01-0400 Body mass index (BMI) [Ratio]34.1 kg/j1Cafpg Girabbi DO Work Phone: [phone] [place], [place] 4727010-16-2025 11:01-0400 Body ckuseyehlhy40.2 [degF]Ayanna Vicente DO Work Phone: [phone] [place], [place] 4727010-16-2025 11:01-0400 Body oewpot485.77 kgDavileonila Vicente DO Work Phone: [phone] [place], [place] 4727010-16-2025 11:01-0400 Diastolic blood eugdcvqj98 mm[Hg]Ayanna Vicente DO Work Phone: 1([phone] [place], [place] 4727010-16-2025 11:01-0400 Heart rate75 /minDavileonila Vicente DO Work Phone: [phone] [place], [place] 4727010-16-2025 11:01-0400 SaO2% (BldA) [Mass fraction]92 %Ayanna Vicente DO Work Phone: [phone] [place], [place] 4727010-16-2025 11:01-0400 Systolic blood oypvtkuu641 mm[Hg]Ayanna Vicente DO Work Phone: [phone] [place], [place] 4727010-14-2025 13:44-0400 Body pfdsyi570.26 cmDaperi Vicente DO Work Phone: [phone] [place], [place] 4727010-14-2025 13:44-0400 Body mass index (BMI) [Ratio]34.4 kg/j8Cxcmjperi Vicente DO Work Phone: [phone] [place], [place] 4727010-14-2025 13:44-0400 Body mjejgdfakzl43.3 [degF]Ayanna Vicente DO Work Phone: [phone] [place], [place] 4727010-14-2025 13:44-0400 Body nlatnw801.68 kgDaperi Vicente DO Work Phone: [phone])[address] [place], [place] 4727010-14-2025 13:44-0400 Diastolic blood hermffvi88 mm[Hg]Ayanna Vicente DO Work Phone: [phone]10-14-2025 13:44-0400 Heart rate80 /Lewis Vicente DO Work Phone: [phone] [place], [place] 4727010-14-2025 13:44-0400 Respiratory rate20 /Lewis Vicente DO Work Phone: [phone] [place], [place] 4727010-14-2025 13:44-0400 SaO2% (BldA) [Mass fraction]88 %Ayanna Vicente DO Work Phone: [phone] [place], [place] 4727010-14-2025 13:44-0400 Systolic blood nnjetpqy89 mm[Hg]Ayanna Saknia DO Work Phone: [phone])[address] [place], [place] 4727008-05-2025 14:44-0400 Body .26 cmDaperi Vicente DO Work Phone: [phone] [place], [place] 4727008-05-2025 14:44-0400 Body mass index (BMI) [Ratio]34 kg/f1Wskzwperi Vicente DO Work Phone: [phone] [place], [place] 4727008-05-2025 14:44-0400 Body forxdqjsbii27.3 [degF]Ayanna Vicente DO Work Phone: [phone] [place], [place] 4727008-05-2025 14:44-0400 Body vraury375.32 kgDaperi Vicente DO Work Phone: [phone] [place], [place] 4727008-05-2025 14:44-0400 Diastolic blood jehzooaa75 mm[Hg]Ayanna Vicente DO Work Phone: 1([phone] [place], [place] 4727008-05-2025 14:44-0400 Heart rate79 /Lewis Earleabbi DO Work Phone: [phone] [place], [place] 4727008-05-2025 14:44-0400 SaO2% (BldA) [Mass fraction]92 %Ayanna Vicente DO Work Phone: [phone] [place], [place] 4727008-05-2025 14:44-0400 Systolic blood tzrlqkbi783 mm[Hg]Ayanna Vicente DO Work Phone: [phone]07-17-2025 13:56-0400 Body pwkguf760.26 cmDaperi Vicente DO Work Phone: [phone]07-17-2025 13:56-0400 Body mass index (BMI) [Ratio]33.5 kg/f3Miiovperi Vicente DO Work Phone: [phone]07-17-2025 13:56-0400 Body .02 kgDaperi Vicente DO Work Phone: [phone])[address] [place], [place] 4727007-17-2025 13:56-0400 Diastolic blood dcnokjlw10 mm[Hg]Ayanna Vicente DO Work Phone: 1([phone] [place], [place] 4727007-17-2025 13:56-0400 Heart rate59 /Lewis Vicente DO Work Phone: 1(516)[address] [place], [place] 4727007-17-2025 13:56-0400 Respiratory rate16 /Lewis Vicente DO Work Phone: [phone] [place], [place] 4727007-17-2025 13:56-0400 SaO2% (BldA) [Mass fraction]94 %Ayanna Vicente DO Work Phone: [phone] [place], [place] 4727007-17-2025 13:56-0400 Systolic blood etyewyuz662 mm[Hg]Ayanna Vicente DO Work Phone: [phone]07-02-2025 13:23-0400 Body .3 cmFredric Itzkowitz DO Work Phone: [facility] HospitalIaomzomrii58-90-2257 13:23-0400Body mass index (BMI) [Ratio]33.23 kg/y8Uhenerx Itzkowitz DO Work Phone: [facility] HospitalHjkhfexfai19-74-2289 13:23-0400Body .06 kgFredric Itzkowitz DO Work Phone: [facility] HospitalCsfjashvlj18-71-9364 13:23-0400Diastolic blood hixmhmju30 mm[Hg]Moe Itjudithkowitz DO Work Phone: [facility] HospitalBdkuwakdra31-13-9132 13:23-0400Systolic blood axylmpyg425 mm[Hg]Moe Itzkowitz DO Work Phone: [facility] HospitalQsatwmqler59-74-0707 10:0400Body snvesd982.7 Geovani German MD Work Phone: [facility]06-06-2025 10:27-0400Body mass index (BMI) [Ratio]34.74 kg/x8LvgdtgZohaib German MD Work Phone: [facility]06-06-2025 10:27-0400Body temperature 64.99 [degF]Zohaib German MD Work Phone: [facility]06-06-2025 10:27-0400Body xdqmyx549.6 kgZohaib German MD Work Phone: [facility]06-06-2025 10:27-0400Diastolic blood uvungpfp60 mm[Hg]Zohaib German MD Work Phone: [facility]06-06-2025 10:27-0400Systolic blood yvbtevcd845 mm[Hg]Zohaib German MD Work Phone: [facility]06-05-2025 14:0400Body lwrreg006.26 cmOhio [facility] Hospital06-05-2025 14:-0400Body mass index (BMI) [Ratio]34.9 kg/c9IjpiwyvtwOhio State East Hospital06-05-2025 14:0400Body abmkqlkxssl26.9 [degF][facility]06-05-2025 14:0400Body zkccih340.5 kgOhio State East Hospital06-05-2025 14:0400Diastolic blood hwolqqic30 mm[Hg][facility]06-05-2025 14:0400 Heart rate68 /minOhio State East Hospital06-05-2025 14:21-0400 Respiratory rate18 /[facility]06-05-2025 14:21-0400 SaO2% (BldA) [Mass fraction]92 %[facility]06-05-2025 14:21-0400Systolic blood tsnwyeii664 mm[Hg][facility] 11-10-2024 15:40-0400Body vhahrx075.26 cmOhio State East Hospital 11-10-2024 15:40-0400Body mass index (BMI) [Ratio]32.9 kg/o3AoubngrypOhio State East Hospital04-30-2025 15:40-0400Body yzsdsosdwhy84.3 [degF][facility]04-30-2025 15:40-0400Body .15 kgOhio State East Hospital04-30-2025 15:40-0400Diastolic blood gogkofnu77 mm[Hg][facility]04-30-2025 15:40-0400Heart rate74 /[facility]04-30-2025 15:40-4361EtA6% (BldA) [Mass fraction]94 %[facility]04-30-2025 15:40-0400Systolic blood smdeliyi556 mm[Hg] [facility]02-03-2025 09:06-0500Diastolic blood ljmoexov55 mm[Hg]SUSAN JAX [facility]02-03-2025 09:06-0500Heart rate69 /minJENNIFER JAX [facility]02-03-2025 09:06-0500Respiratory rate16 /minJENNIFER JAX [facility]02-03-2025 09:06-0500Systolic blood jwkvepei57 mm[Hg]SUSAN JAX [facility]01-27-2025 14:16-0500Body mass index (BMI) [Ratio]32.93 kg/c0FqvkszEsvin Dubon FA[employer] HEALER Work Phone: [facility] HospitalHhyoqaqfll21-59-0467 14:16-0500Body nrbqco568.15 kgEsvin Dubon FAITH HEALER Work Phone: [facility] HospitalQiwbkdstfx75-81-0815 14:16-0500Diastolic blood bhygidad75 mm[Hg]Esvin Dubon FA[employer] HEALER Work Phone: [facility] HospitalYomwfpqpsf22-58-0272 14:16-0500Heart rate64 /min Esvin Dubon FA[employer] HEALER Work Phone: [facility] HospitalYbcouenowo91-44-2477 14:16-0500Systolic blood skcnalmn222 mm[Hg]Esvin Dubon FA[employer] HEALER Work Phone: [facility] HospitalPkeeabkshi44-58-4410 14:34-0500Body .3 cmFredric Itzkowitz DO Work Phone: [facility] HospitalPavchctrvw40-00-8283 14:34-0500Body mass index (BMI) [Ratio]33.67 kg/j5Zmiwpbr Itzkowitz DO Work Phone: [facility] HospitalVbljxwcnxf84-45-3849 14:34-0500Body yictvt614.42 kgFredric Itzkowitz DO Work Phone: [facility] HospitalJkmrcctrae85-21-1358 14:34-0500Diastolic blood gnazcpze95 mm[Hg]Moe Itzkowitz DO Work Phone: [facility] HospitalJhjgbrxeft45-90-5350 14:34-0500Systolic blood ltxbiyja481 mm[Hg]Moe Itzkowitz DO Work Phone: [facility] HospitalYrfvdnktwr32-42-0922 13:58-0500Body mass index (BMI) [Ratio]33.82 kg/g1Rfabozqwxbc Aundrea DO Work Phone: [facility] HospitalQcohqmrpzm67-10-2079 13:58-0500Body phxvwe709.87 kgChristopher Aundrea DO Work Phone: [facility] HospitalEyoqeiflyc02-92-4222 13:58-0500Diastolic blood mm[Hg]Babita Guillaume DO Work Phone: [facility] HospitalWjqsguegtf05-09-3636 13:58-0500Heart rate84 /min Christalicia Aundrea DO Work Phone: [facility] HospitalKjoqusxryj09-89-3851 13:58-5831JmZ1% (BldA) [Mass fraction]90 %Christalicia Guillaume DO Work Phone: [facility] HospitalPqkumjplvi08-95-5967 13:58-0500Systolic blood obrialha019 mm[Hg]Christalicia Guillaume DO Work Phone: [facility] HospitalDytdxctqyq71-89-3719 13:54-0500Body uhpxan375.7 Karthik Freitas MD Work Phone: 1(812)620-[address] [place], [place] 3832811-13-2024 13:54-0500Body mass index (BMI) [Ratio]35.31 kg/c3BuhbkbChad Freitas MD Work Phone: 1(020)[phone] [place], [place] 3832811-13-2024 13:54-0500Body temperature 97 [degF]Chad Freitas MD Work Phone: 1(505)509-[address] [place], [place] 3832811-13-2024 13:54-0500Body yopqzc654.33 kgChad Freitas MD Work Phone: [id number] 13:54-0500Diastolic blood xolulkkh49 mm[Hg]hCad Freitas MD Work Phone: 1(705)164-[address] [place], [place] 3832811-13-2024 13:54-0500Heart rate70 /min Chad Freitas MD Work Phone: [facility] [phone] 13:54-0500Respiratory rate 16 /minChad Freitas MD Work Phone: [facility] HospitalElhwum87-87-4885 13:54-3910CpF1% (BldA) [Mass fraction]91 %Chad Freitas MD Work Phone: c[facility] [id number] 13:54-0500Systolic blood hukfksup84 mm[Hg]Chad Freitas MD Work Phone: c[facility] [id number] 13:00-0500Body hsoywj424.7 Geovani German MD Work Phone: [facility]11-04-2024 13:00-0500Body mass index (BMI) [Ratio]34.67 kg/x4NvecdxZohaib German MD Work Phone: [facility]11-04-2024 13:00-0500Body cefakp222.4 kgZohaib German MD Work Phone: [facility]11-04-2024 13:00-0500Diastolic blood xtbuuety16 mm[Hg]Zohaib German MD Work Phone: [facility]11-04-2024 13:00-0500Heart rate62 /min Zohaib German MD Work Phone: [facility]11-04-2024 13:00-0500Systolic blood sbqmoiow535 mm[Hg]Zohaib German MD Work Phone: [facility]10-30-2024 13:50-0400Body yekgum367.34 cmDO Ayanna Vicente Work Phone: [facility]10-30-2024 13:50-0400 Body mass index (BMI) [Ratio]32.2 kg/m2DO Ayanna Vicente Work Phone: [facility]10-30-2024 13:50-0400 Body iusvic222.77 kgDO Ayanna Vicente Work Phone: [facility]10-30-2024 13:50-0400 Diastolic blood fpsovxga89 mm[Hg]DO Ayanna Vicente Work Phone: [facility]10-30-2024 13:50-0400 Heart rate86 /minDO Ayanna Vicente Work Phone: [facility]10-30-2024 13:50-0400 SaO2% (BldA) [Mass fraction]93 %DO Ayanna Vicente Work Phone: 1(722)[address]10-30-2024 13:50-0400 Systolic blood dzvdukqi672 mm[Hg]DO Ayanna Vicente Work Phone: 1(570)[address] [place], [place] 4727010-29-2024 14:45-0400 Body mass index (BMI) [Ratio]31.9 kg/m2DO Ayanna Vicente Work Phone: 1(369)[address] [place], [place] 4727010-29-2024 14:45-0400 Body qnvwddijmdd99.3 [degF]DO Ayanna Vicente Work Phone: 1(609)[address] [place], [place] 4727010-29-2024 14:45-0400 Diastolic blood zbofkzsj08 mm[Hg]DO Ayanna Vicente Work Phone: 1(696)[address] [place], [place] 4727010-29-2024 14:45-0400 Heart rate76 /minDO Ayanna Vicente Work Phone: [phone])[address] [place], [place] 4727010-29-2024 14:45-0400 SaO2% (BldA) [Mass fraction]91 %DO Ayanna Vicente Work Phone: 1(725)[address] [place], [place] 4727010-29-2024 14:45-0400 Systolic blood hcfwuyej802 mm[Hg]DO Ayanna Vicente Work Phone: 1(959)[address] [place], [place] 4727010-29-2024 13:41-0400 Body kroarw097.34 cmDO Ayanna Sakina Work Phone: 1(859)[address] [place], [place] 4727010-29-2024 13:41-0400 Body .87 kgDO Ayanna Vicente Work Phone: 1(809)[address] [place], [place] 4727009-23-2024 08:52-0400 Body trtows325.34 [facility] 08:52-0400Body mass index (BMI) [Ratio]32.3 kg/v5TwxeglbrzOhio [facility] Hospital09-23-2024 08:52-0400Body uyoneinmupj74 [degF][facility]09-23-2024 08:52-0400Body feiilg854.23 [facility]09-[facility]-2024 08:52-0400Diastolic blood hivwvmeh58 mm[Hg][facility] 04-05-2024 08:52-0400Heart rate87 /[facility] 04-05-2024 08:52-2808GyW0% (BldA) [Mass fraction]90 %[facility]09-23-2024 08:52-0400Systolic blood mm[Hg][facility]08-26-2024 14:43-0400Body ktsbka921.34 cm[facility]08-26-2024 14:43-0400Body mass index (BMI) [Ratio]32.1 kg/m2 [facility]08-26-2024 14:43-0400Body momytydchvb73 [degF] [facility]08-26-2024 14:43-0400Body qgpdwo954.32 kg [facility]08-26-2024 14:43-0400Diastolic blood mm[Hg][facility]08-26-2024 14:43-0400Heart rate73 /min [facility]08-26-2024 14:43-8878ZaT4% (BldA) [Mass fraction]95 %[facility]08-26-2024 14:43-0400Systolic blood eceyrtvn47 mm[Hg][facility]08-13-2024 10:15-0400 Body ckbpvarazqk64.88 [degF]SUSAN RANDOLPH [facility]08-13-2024 10:15-0400Diastolic blood sstnfdap67 mm[Hg]SUSAN RANDOLPH [facility]08-13-2024 10:15-0400Heart rate68 /minJENNJERMAINE RANDOLPH [facility]08-13-2024 10:15-0400Respiratory rate16 /Gail RANDOLPH [facility]08-13-2024 10:15-0400Systolic blood vlbiouxn084 mm[Hg]SUSAN RANDOLPH [facility]07-25-2024 08:08-0400Body jxwajq907.34 [facility]07-[facility]-2024 08:08-0400Body mass index (BMI) [Ratio]32.3 kg/t3GznmbxivaOhio State East Hospital07-25-2024 08:08-0400Body cekqgrbotbn14.8 [degF][facility]07-25-2024 08:08-0400Body cdmsce658.23 kg[facility]07-25-2024 08:08-0400Diastolic blood ihvirqbf83 mm[Hg] [facility]07-25-2024 08:08-0400Heart rate70 /[facility]07-25-2024 08:08-0400Respiratory rate18 /[facility]07-25-2024 08:08-5671QkB3% (BldA) [Mass fraction]98 % [facility]07-25-2024 08:08-0400Systolic blood wyxlwdfo582 mm[Hg][facility]07-01-2024 14:32-0400Body ybdmrw079.34 cm DO Ayanna Vicente Work Phone: [facility]07-01-2024 14:32-0400 Body mass index (BMI) [Ratio]30.9 kg/m2DO Ayanna Vicente Work Phone: [facility]07-01-2024 14:32-0400 Body bawzxoceghk09 [degF]DO Ayanna Vicente Work Phone: [facility]07-01-2024 14:32-0400 Body .69 kgDO Ayanna Vicente Work Phone: [facility]07-01-2024 14:32-0400 Heart rate61 /Rachael Vicente Work Phone: 1(660)[address]07-01-2024 14:32-0400 Respiratory rate18 /Rachael Vicente Work Phone: 1(717)[address]07-01-2024 14:32-0400 SaO2% (BldA) [Mass fraction]91 %DO Ayanna Vicente Work Phone: 1(476)[address]04-09-2024 14:45-0400 Body pmvlup248.34 cmDO Ayanna Vicente Work Phone: 1(012)[address]04-09-2024 14:45-0400 Body mass index (BMI) [Ratio]32.5 kg/m2DO Ayanna Vicente Work Phone: 1(471)[address]04-09-2024 14:45-0400 Body xfpaewslvuk37.5 [degF]DO Ayanna Vicente Work Phone: 1(099)[address]04-09-2024 14:45-0400 Body xouihc852.68 kgDO Ayanna Vicente Work Phone: 1(021)[address]04-09-2024 14:45-0400 Diastolic blood ofvycsmf20 mm[Hg]DO Ayanna Vicente Work Phone: 1(044)[address]04-09-2024 14:45-0400 Respiratory rate18 /Rachael Vicente Work Phone: 1(466)[address]04-09-2024 14:45-0400 SaO2% (BldA) [Mass fraction]92 %DO Ayanna Vicente Work Phone: 1(159)[address]04-09-2024 14:45-0400 Systolic blood prmiqxoe720 mm[Hg]DO Ayanna Vicente Work Phone: 1(328)[address]01-30-2024 14:20-0500 Body .34 cmJelavon Mckeon Other [facility]01-30-2024 14:20-0500 Body mass index (BMI) [Ratio]32.21 kg/j8Vgykccklavon Mckeon Other [employer] Other 01-30-2024 14:20-0500Body fepenr049.78 kgJelavon Mckeon Other [employer] Other 01-30-2024 14:20-0500Body owpvsq061.77 kgDO Ayanna Vicente Work Phone: [facility]10-03-2023 14:40-0400 Body ndynex377.34 cmDaperi Vicente Other [employer] Other 10-03-2023 14:40-0400Body mass index (BMI) [Ratio] 33.61 kg/f1Hatfeperi Vicente Other [employer] Other 10-03-2023 14:40-0400Body horstlwpskr94.8 [degF]Ayanna Vicente Other [employer] Other 10-03-2023 14:40-0400Body rsxhub964.32 kgDaperi Vicente Other [employer] Other 10-03-2023 14:40-0400Diastolic blood apxyccwt03 mm[Hg] Ayanna Vicente Other [employer] Other 10-03-2023 14:40-0400Respiratory rate18 /minDavileonila Vicente Other [employer] Other 10-03-2023 14:40-5633AiW3% (BldA) [Mass fraction]93 % Ayanna Vicente Other [employer] Other 10-03-2023 14:40-0400Systolic blood ucgzyjmo607 mm[Hg] Ayanna Vicente Other [employer] Other 08-15-2023 14:40-0400Body xqitlw887.34 cmDaperi Vicente Other [employer] Other 08-15-2023 14:40-0400Body mass index (BMI) [Ratio] 32.91 kg/y6Ybajfperi Vicente Other [employer] Other [id number] 14:40-0400Body jvhlbihqbzh00.9 [degF]Ayanna Vicente Other [employer] Other 08-15-2023 14:40-0400Body .05 kgDaperi Vicente Other [employer] Other 08-15-2023 14:40-0400Diastolic blood fwrytiiu60 mm[Hg] Ayanna Vicente Other [employer] Other 08-15-2023 14:40-0400Respiratory rate18 /minDscott Vicente Other [employer] Other 08-15-2023 14:40-8858PtS7% (BldA) [Mass fraction]94 % Ayanna Vicente Other [employer] Other 08-15-2023 14:40-0400Systolic blood tclqdafg161 mm[Hg] Ayanna Vicente Other [employer] Other [id number] 11:35-0400Blood Pressure LocationJENNIFER JAX [facility]08-01-2023 11:35-0400Diastolic blood vvpposkt33 mm[Hg]SUSAN RANDOLPH [facility]08-01-2023 11:35-0400Heart rate70 /minSUSAN RANDOLPH [facility]08-01-2023 11:35-0400Systolic blood dspqkady440 mm[Hg]SUSAN RANDOLPH [facility]07-28-2023 13:28-0400Body xdwzgi653.8 cmSantos Lares MD Work Phone: [facility]07-28-2023 13:28-0400Body temperature 97.3 [degF]Santos Lares MD Work Phone: [facility]07-28-2023 13:28-0400Body xlfywh202.96 kgSantos Lares MD Work Phone: [facility]07-28-2023 13:28-0400Diastolic blood tcteoojb41 mm[Hg]Santos Lares MD Work Phone: [facility]07-28-2023 13:28-0400Heart rate74 /min Santos Lares MD Work Phone: [facility]07-28-2023 13:28-0400Respiratory rate 20 /minSantos Lares MD Work Phone: [facility]07-28-2023 13:28-3028NlC6% (BldA) [Mass fraction]93 %Santos Lares MD Work Phone: [facility]07-28-2023 13:28-0400Systolic blood yocyaekj738 mm[Hg]Santos Lares MD Work Phone: [facility]01-06-2023 12:17-0500Body uahfro465.8 cmSantos Lares MD Work Phone: [facility]01-06-2023 12:17-0500Body temperature 98.01 [degF]Santos Lares MD Work Phone: [facility]01-06-2023 12:17-0500Body uovmlf358.6 kgSantos Lares MD Work Phone: [facility]01-06-2023 12:17-0500Diastolic blood zskxpifc83 mm[Hg]Santos Lares MD Work Phone: [facility]01-06-2023 12:17-0500Heart rate72 /min Santos Lares MD Work Phone: [facility]01-06-2023 12:17-0500Respiratory rate 16 /minSantos Lares MD Work Phone: [facility]01-06-2023 12:17-8362BaB2% (BldA) [Mass fraction]93 %Santos Lares MD Work Phone: [facility]01-06-2023 12:17-0500Systolic blood mvzqrryf562 mm[Hg]Santos Lares MD Work Phone: [facility]10-06-2022 11:58-0400Body nxylct975.8 cmSantos Lares MD Work Phone: [facility]10-06-2022 11:58-0400Body temperature 97.81 [degF]Santos Lares MD Work Phone: [facility]10-06-2022 11:58-0400Body ubohlu872.69 kgSantos Lares MD Work Phone: [facility]10-06-2022 11:58-0400Diastolic blood jcitgxub05 mm[Hg]Santos Lares MD Work Phone: [facility]10-06-2022 11:58-0400Heart rate70 /min Santos Lares MD Work Phone: [facility]10-06-2022 11:58-0400Respiratory rate 16 /minSantos Lares MD Work Phone: [facility]10-06-2022 11:58-9437BtM5% (BldA) [Mass fraction]99 %Santos Lares MD Work Phone: [facility]10-06-2022 11:58-0400Systolic blood aaycaiew206 mm[Hg]Santos Lares MD Work Phone: [phone] 10:59-0400Body .8 cmSantos Lares MD Work Phone: 1(714)[address] [place], [place] 9810809-22-2022 10:59-0400Body temperature 97.11 [degF]Santos Lares MD Work Phone: [phone] 10:59-0400Body cotjoo807.78 kgSantos Lares MD Work Phone: [phone] 10:59-0400Diastolic blood bzoaxqkt51 mm[Hg]Santos Lares MD Work Phone: [facility]09-22-2022 10:59-0400Heart rate68 /min Santos Lares MD Work Phone: [facility]09-22-2022 10:59-0400Respiratory rate 16 /minSantos Lares MD Work Phone: [facility]09-22-2022 10:59-7506BtO0% (BldA) [Mass fraction]95 %Santos Lares MD Work Phone: [facility]09-22-2022 10:59-0400Systolic blood mm[Hg]Santos Lares MD Work Phone: [place] [address]-20-2022 14:20-0400Body gjnhaz446.34 cmDaperi Vicente Other [facility] Other 081731-69-1231 14:20-0400Body mass index (BMI) [Ratio] 31.73 kg/x7Hkmfvperi Vicente Other [employer] [place] Other 09-20-2022 14:20-0400Body jchymmcdshw11.2 [degF]Ayanna Vicente Other [employer] [place] Other [id number] 14:20-0400Body efvwyh307.19 kgDaperi Vicente Other [employer] [place] Other 540935-41-2022 14:20-0400Diastolic blood mcdakmul09 mm[Hg] Ayanna Vicente Other [employer] Other 09-20-2022 14:20-0400Respiratory rate18 /minDscott Vicente Other [employer] [place] Other 09-20-2022 14:20-4506TiL6% (BldA) [Mass fraction]96 % Ayanna Vicente Other [employer] Other 09-20-2022 14:20-0400Systolic blood mm[Hg] Ayanna Vicente Other [employer] Other 07-27-2022 14:20-0400Body hpripo647.34 cmDaperi Vicente Other [employer] Other 07-27-2022 14:20-0400Body mass index (BMI) [Ratio] 31.94 kg/l8IramnAyanna Vicente Other [facility] [employer] Other 07-27-2022 14:20-0400Body bmjbavbgxiw15.4 [degF]Ayanna Vicente Other [facility] [employer] Other 07-27-2022 14:20-0400Body jradzx084.87 kgDaperi Vicente Other [facility] [employer] Other 07-27-2022 14:20-0400Diastolic blood pgvmunpy45 mm[Hg] Ayanna Vicente Other [facility] [employer] Other 07-27-2022 14:20-0400Respiratory rate18 /Lewis Vicente Other [facility] [employer] Other 07-27-2022 14:20-8712OsO3% (BldA) [Mass fraction]93 % Ayanna Vicente Other [facility] [employer] Other 07-27-2022 14:20-0400Systolic blood yctbkcly670 mm[Hg] Ayanna Vicente Other [facility] [employer] Other 07-16-2022 05:00-0400Body gfuhyzxltds75.6 [degF]DO Ayanna Vicente Work Phone: [facility]07-16-2022 05:00-0400 Diastolic blood xjabjnxs60 mm[Hg]DO Ayanna Vicente Work Phone: [phone]07-16-2022 05:00-0400 Heart rate64 /Rachael Vicente Work Phone: [phone]07-16-2022 05:00-0400 Respiratory rate16 /Rachael Vicente Work Phone: [facility]07-16-2022 05:00-0400 SaO2% (BldA) [Mass fraction]94 %DO Ayanna Viecnte Work Phone: 1(017)[address]07-16-2022 05:00-0400 Systolic blood mm[Hg]DO Ayanna Vicente Work Phone: 1(009)[address]07-13-2022 06:55-0400 Body audpif737.8 cmDO Ayanna Vicente Work Phone: 1(368)[address]07-10-2022 06:00-0400 Body ubjfup760.6 kgDO Ayanna Vicente Work Phone: 1(720)[address]07-05-2022 17:00-0400 Body mass index (BMI) [Ratio]33 kg/m2DO Ayanna Vicente Work Phone: 1(960)40501 [address]07-05-2022 15:40-0400 Body ousbnzoyrpd09.9 [degF]DO Ayanna Vicente Work Phone: 1(755)[address]07-05-2022 15:40-0400 Diastolic blood ajshjrgg55 mm[Hg]DO Ayanna Vicente Work Phone: 1(263)[address]07-05-2022 15:40-0400 Heart rate72 /LeleO Ayanna Vicente Work Phone: 1(709)[address]07-05-2022 15:40-0400 Respiratory rate18 /LeleO Ayanna Vicente Work Phone: 0(198)[address]01 [address]07-05-2022 15:40-0400 SaO2% (BldA) [Mass fraction]95 %DO Ayanna Vicente Work Phone: 1(078)[address]07-05-2022 15:40-0400 Systolic blood mm[Hg]DO Ayanna Sakina Work Phone: 1(042)[address]07-05-2022 05:11-0400 Body wkjsym402.9 kgDO Ayanna Ogabbi Work Phone: 1(793)[address]2022 19:52-0400 Body tyvkbv680.8 cmDO Ayanna Vicente Work Phone: [facility]2022 19:52-0400 Body mass index (BMI) [Ratio]34.9 kg/m2DO Ayanna Sakina Work Phone: [facility]06-16-2022 11:10-0400 Body ycgqzn794.34 cmDaperi Vicente Other [facility] [employer] Other 789748-67-6852 11:10-0400Body mass index (BMI) [Ratio] 33.12 kg/h6Ntbxsperi Vicente Other [employer] [place] Other 333736-30-1391 11:10-0400Body owtxalxjdve33.3 [degF][facility] 945566-06-4428 11:10-0400Body ciilnc284.[address] [facility] Other 111512-16-2605 11:10-0400Diastolic blood ykipkdkd87 mm[Hg] Ayanna Vicente [facility] 06-16-2022 11:10-0400Respiratory rate20 /minDscott Vicente Other [employer] [place] Other 584488-92-8995 11:10-6409NpL8% (BldA) [Mass fraction]93 % Ayanna Vicente Other [employer] Other 348867-76-7023 11:10-0400Systolic blood wevnuisy104 mm[Hg] Ayanna Vicente Other [employer] Other 06-06-2022 12:00-0400Body qmxpac065.34 cmDaperi Milner Other [employer] Other 06-06-2022 12:00-0400Body mass index (BMI) [Ratio] 32.21 kg/g2Rambb Alf Other [employer] Other 06-06-2022 12:00-0400Body wjfvwe705.78 kgDavileonila Alf Other [employer] Other 06-06-2022 12:00-0400Diastolic blood kkcpjyed04 mm[Hg] Ayanna Milner Other [employer] Other 06-06-2022 12:00-0400Systolic blood vvaxmhyw17 mm[Hg] Ayanna Milner Other [employer] Other 09-22-2021 14:20-0400Body gdokuy169.34 cmDaperi Vicente Other [employer] Other 09-22-2021 14:20-0400Body mass index (BMI) [Ratio] 32.35 kg/q4Tuageperi Vicente Other [facility] [place] Other 09-22-2021 14:20-0400Body ldvlyrtwgwd36.7 [degF]Ayanna Vicente Other [facility] [place] Other 09-22-2021 14:20-0400Body mvmucn648.24 kgDaperi Vicente Other [employer] Other 09-22-2021 14:20-0400Diastolic blood bxqscvfe69 mm[Hg] Ayanna Vicente Other [employer] Other 09-22-2021 14:20-0400Respiratory rate18 /minDscott Ogabbi Other [facility] [place] Other 09-22-2021 14:20-2315IcF1% (BldA) [Mass fraction]97 % Ayanna Vicente Other [facility] Other 09-22-2021 14:20-0400Systolic blood yvottabs892 mm[Hg] Ayanna Vicente Other [facility] Other Encounters Encounter DateEncounter TypeCare ProviderFacilityStart: 32-09-0439gmaldmixso Sujey X OrzechFacility:[place]vueStart: 05-19-2025 End: 35-77-0359Djwzekb encounter procedureDavileonila Vicente DO-[facility] Work Phone: Start: 05-19-2025 End: 30-24-3367jtnuystmgqNpjwd Girvin DO Work Phone: [phone]-HhafxtCritical access hospitalStart: 05-18-2025 End: 85-50-8306wbkluniwqlWloms Girvin DO Work Phone: -[facility] BellevueStart: 05-18-2025 End: 46-48-4342Thinvdu encounter procedureDavileonila Vicente DO-[facility] Work Phone: Start: 07-87-1512Crx-patient / Non-visitDavileonila Vicente DO-[facility] Work Phone: Start: 04-28-2025 End: 27-42-0836oecetrycswZhntv Girvin DO Work Phone: [facility] Work Phone: Start: 04-28-2025 End: 26-12-1973Uchjxqz encounter procedureDavileonila Vicente DO-[facility] Work Phone: Start: 04-26-2025 End: 76-51-7208gfjbewgimvWczgb Sakina DO Work Phone: [facility] Work Phone: Start: 04-26-2025 End: 60-58-9759Lauvxny encounter procedureMckenzie Christopher CHAIRMAN AND CEO-[facility] Work Phone: Start: 04-18-2025 End: 69-22-7138Zdsktq outpatient new [facility] Work Phone: [facility] DermatologyComment on above:Hill angioma (Primary Dx); Seborrheic keratosis; Actinic keratosis; Lentigines; Lipoma of right upper extremityStart: 04-18-2025 End: 99-83-4523msvudjxopnJIZWZ [facility] CENTERot AvailableStart: 04-18-2025 End: 62-07-1774Qundkf flowsH[facility] PA Work Phone: no [facility] DermatologyStart: 04-18-2025 End: 14-63-0543Qizgwv [facility] Work Phone: no [facility] DermatologyStart: 03-21-2025 End: 31-12-5968uitojhureqPthbcoz Vytautas Giedraitis MDFacility:[facility] [place] Start: 59-49-9181Rpe-patient / Non-visitAndrius Giedraitis -[facility] Work Phone: Start: 03-07-2025 End: 65-39-8631wdeywmzrzeRbhpgoh Vytautas Giedraitis MDFacility:[facility] [place] Start: 02-28-2025 End: 27-16-8396jewxyiikxpLkddldb Vytautas Giedraitis MDFacility:[facility] [place] Start: 02-21-2025 End: 98-77-6495rhzeuaqohzNxfehco Vytautas Giedraitis MDFacility:[facility] [place] Start: 02-15-2025 End: 31-22-4634kgzpwmavppXitqh Girvin DO Work Phone: [facility] Work Phone: Start: 02-15-2025 End: 39-15-7953Dxqobrp encounter procedureDaperi Vicente DO-[facility] [place] Work Phone: Start: 18-61-7513Ndo-patient / Non-visitAndcory Azul MD-[facility] Work Phone: Start: 02-08-2025 End: 39-88-0018ajorbieqjqMNFWAYZE E PERRYFacility:EU tart: 02-08-2025 End: 50-17-1253Hcjznsg encounter procedureJENNIFER E JAX [facility] [place] start: 01-27-2025 End: 66-19-3714fsufnahetkIzxuk Girvin DO Work Phone: [facility] Work Phone: Start: 01-27-2025 End: 96-55-5852Rhgwhty encounter procedureLesli Arevalo MD-[facility] Work Phone: Start: 01-19-2025 End: 99-27-8045Kqxunetbx encounterFredric H Roxane DO Work Phone: [facility]Start: 01-19-2025 End: 73-08-6884Otwcrtx encounter procedureFredmanuel Betts DO-[facility] Work Phone: Start: 01-19-2025 End: 29-40-1259iuqsamtiziGaghj Girvin DO Work Phone: [facility] Work Phone: Start: 82-56-7652Trs-patient / Non-visitLesli Arevalo MD -[facility] Work Phone: Start: 01-17-2025 End: 33-59-9046zpvyfatyatHwloblf Vytautas Giedraitis MDFacility:[facility] [place] Start: 01-12-2025 End: 98-85-0441Siptvm outpatient visit 15 minutesFredric Edison Betts DO Work Phone: [facility] GENSComment on above:Diarrhea, unspecified type (Primary Dx)Start: 01-12-2025 End: 16-44-2080nveifmgnmbMXQTKAO H ITDAPHNENot AvailableStart: 12-27-2024 End: 52-56-3447fgjznqsgptJbfxmlz Vytautas Giedraitis MDFacility:[facility] [place] Start: 12-20-2024 End: 93-13-3352tkgyekoadxPlqsptv Vytautas Giedraitis MDFacility:[facility] [place] Start: 12-17-2024 End: 05-61-4268Tapvthp encounter procedureZohaib German MD Work Phone: RheumatologyComment on above:Fibromyalgia (Primary Dx); Primary osteoarthritis involving multiple joints; Type 2 diabetes mellitus without complication, with long-term current use of insulin (HCC); Long-term use of PlaquenilStart: 12-17-2024 End: 99-54-7829qofckejnbrHIMBG Aqu[place] OGVINFacility:[facility] Troytart: 12-16-2024 End: 49-10-0981uscmjzhuehEndlhrvhnUniversity Hospitals Parma [facility] Center Work Phone: Start: 12-16-2024 End: 74-38-8379Uvemtzs encounter procedureUnc Health [facility] Work Phone: Start: 11-17-2024 End: 01-09-3908Dkgwjyggo encounterChad Freitas MD Work Phone: cancer Appts MCComment on above:Records faxedStart: 11-10-2024 End: 62-16-6457wlhnphqxzpWkeglfaykUniversity Hospitals Parma Medical Center Work Phone: Start: 11-10-2024 End: 84-20-6830Gjhazvz encounter procedureUnc Health Lenoir Physician GroupKingsburg Medical Centerue Work Phone: Start: 70-11-4896Agd-patient / Non-visitUnc Health Lenoir Physician GroupWest [facility] Work Phone: Start: 11-01-2024 End: 78-62-1343cdqelrzwvvAmpyuvg Vytautas Giedraitis MDFacility:[facility] [place] Start: 10-11-2024 End: 96-87-0411fktikrnnzkQovgdjg Vytautas Giedraitis MDFacility:[facility] [place] Start: 09-03-2024 End: 42-66-5287cdmnudygciUyput GirvinFacility:[facility] Start: 48-79-1624Evt-patient / Non-visitMelissa Marker DO Work Phone: [facility] Work Phone: Start: 08-16-2024 End: 84-17-0894dldjaxgmweZCUAHSEV E PERRYFacility:[facility] [place]Start: 08-16-2024 End: 23-03-4375Vdodbqr encounter procedureJENNIFER E JAX [facility] [place] start: 08-16-2024 End: 86-78-4958flbyjuwebwLiszgzk Vytautas Giedraitis MDFacility:[facility] [place] Start: 08-11-2024 End: 36-12-4128aqstbbwufaOalzh Girvin DO Work Phone: [facility] Work Phone: Start: 08-11-2024 End: 79-60-8119Lwdtkce encounter procedureDavid Girvin DO Work Phone: [facility] Work Phone: start: 69-24-5570Bjx-patient / Non-visitDavid Girvin DO Work Phone: [facility] [place] Work Phone: Start: 08-10-2024 End: 47-44-0458ssurcmzzohJqsvf Girvin DO Work Phone: [facility] Work Phone: Start: 08-10-2024 End: 15-06-1566Lgbbbcns ReferredDavid Girvin DO Work Phone: [facility] [place] Work Phone: Start: 08-09-2024 End: 11-00-2719Vbbtsz outpatient visit 15 minutesEsvin Dubon FAITH HEALER Work Phone: ana LUCIAUEComment on above:Cognitive impairment (Primary Dx)Start: 08-09-2024 End: 36-06-3359liplqlfecvMCEHZE MORRISNot AvailableStart: 08-09-2024 End: 36-45-3177Bauhsj Nestor Dubon FA[employer] HEALER Work Phone: ana ZOEEVUEStart: 08-09-2024 End: 51-19-6920Aewqxu Nestor Dubon FAITH HEALER Work Phone: ana [place]UEStart: 08-04-2024 End: 35-00-7724lcrlqekwcmZOYHJ NORTHEIMNot AvailableStart: 07-26-2024 End: 79-66-4351pfsgkscfegMzkscxo Vytautas Giedraitis MDFacility:[facility] [place] Start: 07-12-2024 End: 68-39-4426hhqjskeeaqQttfpwa Vytautas Latha MDFacility:[facility] [place] Start: 06-28-2024 End: 77-27-3681Rcbryc Mukesh Hammonds PhD Work Phone: [facility] NEUROLOGYStart: 06-28-2024 End: 97-12-2537Jauxlb Mukesh Hammonds PhD Work Phone: noms NEUROLOGYStart: 06-28-2024 End: 19-94-7997Ubgjzde encounter procedureEnrique Hammonds PhD Work Phone: noms NEUROLOGYComment on above:Memory loss (Primary Dx); Concentration deficit; Word finding difficulty; Other chronic pain; Family history of dementiaStart: 06-28-2024 End: 43-99-4649nlahvkhvulJOTDWMAB JUSTYNABESTENNot AvailableStart: 06-23-2024 End: 46-91-7278fuztrtcaffKKCLKDI H ITZKOWITZNot AvailableStart: 06-23-2024 End: 42-71-2230Ylavcs outpatient visit 15 minutesFredric H Itzkowitz DO Work Phone: noms GENSComment on above:Diarrhea, unspecified type (Primary Dx); Constipation, unspecified constipation typeStart: 06-22-2024 End: 58-25-1940Rdwqcieag Result EncounterChristopher Aundrea DO Work Phone: noms External Department UnsolicitedStart: 06-22-2024 End: 18-44-8917Kdhmzdlfj Result EncounterChristopher Aundrea DO Work Phone: noms External Department UnsolicitedStart: 06-22-2024 Non-patient / Non-visitDavid Girvin DO Work Phone: [facility] Work Phone: Start: 06-17-2024 End: 38-07-4142Ncphej flowsheetChristopher Aundrea DO Work Phone: noms [address]TEStart: 06-17-2024 End: 35-42-7901Llvuva flowsheetChristopher Aundrea DO Work Phone: noms [address]TEStart: 06-17-2024 End: 01-03-5344Ricsjw outpatient new 45 minutesChristopher Aundrea DO Work Phone: noms [address] ROUTEComment on above:Cognitive impairment (Primary Dx); Long-term use of high-risk medicationStart: 06-17-2024 End: 48-58-5373meymphbcsjKZOEJBUPBKW AUNDREANot AvailableStart: 70-70-2620Wxz- patient / Non-visitDavid Sakina DO Work Phone: [facility] Work Phone: Start: 06-15-2024 End: 40-24-5044tvvyklhiixHfbogbs Jane MarkerFacility:[place] Clinictart: 06-15-2024 End: 64-94-8504Hwrvfxaa ReferredDaperi Vicente DO Work Phone: [facility] [place] HospStart: 06-14-2024 End: 36-26-1183fbzlvcoahhBzvzcoi Vytautas Giedraitis MDFacility:[facility] [place] Start: 06-08-2024 End: 28-25-9594Qmicd abstractingRobjavier German MD Work Phone: RheumatologyStart: 06-07-2024 End: 03-54-5637uwovhhwnebHjgiesr Vytautas Giedraitis MDFacility:[facility] Start: 05-26-2024 End: 37-20-3718buobamjayhOZBPO C GIRVINFacility:[facility] Troytart: 97-57-4315Gye-patient / Non-visitDavid Sakina DO Work Phone: [facility] Work Phone: Start: 05-26-2024 End: 38-78-7609Xosmdl outpatient visit 15 minutesAdarsh Zena ROMEO Work Phone: Hematology/OncologyComment on above:CLL (chronic lymphocytic leukemia) (HCC) (Primary Dx)Start: 05-26-2024 End: 00-56-7410Gagxgka encounter procedureDaperi Vicente DO Work Phone: [facility] Work Phone: Start: 05-26-2024 End: 95-17-2412enfdbolkcrYievn Girvin DO Work Phone: [facility] Work Phone: Start: 05-18-2024 End: 20-95-2160fpwaeivbyoRNMarisol Vicente Work Phone: [facility] Work Phone: Start: 05-18-2024 End: 46-71-4878Ewewaqf encounter procedureDO Ayanna Vicente Work Phone: [facility] Work Phone: start: 05-17-2024 End: 46-87-2475ksbwcixrhdAPTYPX PERHALAFacility:[facility] Troytart: 05-17-2024 End: 92-76-6051Jtmraxt encounter procedureZohaib German MD Work Phone: RheumatologyComment on above:Primary osteoarthritis involving multiple joints (Primary Dx); Fibromyalgia; Type 2 diabetes mellitus without complication, with long-term current use of insulin (HCC)Start: 05-12-2024 End: 50-51-5967pcrkhqvgywRGMarisol Vicente Work Phone: [facility] Work Phone: Start: 05-12-2024 End: 77-44-7129Lqxduho encounter procedureDO Ayanna Vicente Work Phone: [facility] Work Phone: Start: 05-11-2024 End: 75-64-9819nfinhreoulAP David Girvin Work Phone: [facility] Work Phone: Start: 05-11-2024 End: 75-51-0059Bwuyjxl encounter procedureDO Ayanna Vicente Work Phone: [facility] [place] Work Phone: Start: 05-06-2024 End: 45-62-8302tklqqbfeneSI Ayanna Vicente Work Phone: [facility] Work Phone: Start: 05-06-2024 End: 78-86-1617Jmlvers encounter procedureDO Ayanna Vicente Work Phone: [facility] [place] Work Phone: Start: 04-05-2024 End: 75-33-3550idnbqfbqviNheqgagtiUniversity Hospitals Parma [facility] Center Work Phone: Start: 04-05-2024 End: 00-76-8464Wynhgiu encounter procedureMonroes Physician Group-[facility] [place] Work Phone: Start: 03-08-2024 End: 55-32-0717hiffqevvkgQknhlyqxcUniversity Hospitals Parma [facility] Center Work Phone: Start: 03-08-2024 End: 94-02-0854Cobhmov encounter procedureMonroes Physician Group-[facility] [place] Work Phone: Start: 02-24-2024 End: 47-89-0266djmwrmeohoJCBIGIOL E PERRYFacility:EU evueStart: 02-24-2024 End: 25-96-7811Anfsgkq encounter procedureJENNIFER E JAX [facility] [place] start: 02-05-2024 End: 46-05-4320rmvdhorfmeIvlybtvneUniversity Hospitals Parma Medical Center Work Phone: Start: 02-05-2024 End: 10-26-8562Orgalmv encounter procedureMonroes Physician Group-[facility] [place] Work Phone: Start: 70-93-2610Xaf-patient / Non-visitBia Physician Group-[facility] Work Phone: Start: 01-12-2024 End: 71-49-8321ylyjxodyflDZ David Girvin Work Phone: [facility] Work Phone: Start: 01-12-2024 End: 08-47-1281Urflute encounter procedureDO Ayanna Vicente Work Phone: [facility] Ur[facility] Work Phone: Start: 10-21-2023 End: 73-95-8334yapslbloirVW Ayanna Vicente Work Phone: [facility] Work Phone: Start: 10-21-2023 End: 03-29-3037Bhwdoql encounter procedureDO Ayanna Vicente Work Phone: [facility] [place] Work Phone: start: 20-30-1351Yop-patient / Non-visitDO Ayanna Vicente Work Phone: [facility] Work Phone: Start: 10-17-2023 End: 32-01-3184ipbgmajaqlCH David Girvin Work Phone: [facility] Work Phone: Start: 10-17-2023 End: 58-11-4265Evaplxj encounter procedureDO Ayanna Vicente Work Phone: [facility] [place] Work Phone: Start: 65-60-5493Zey-patient / Non-visitDO Ayanna Vicente Work Phone: [facility] Work Phone: Start: 92-01-6090Pvr-patient / Non-visitDO Ayanna Vicente Work Phone: [facility] Work Phone: Start: 71-11-2909Tmqgcd flowsheetButch Smith DPM Work Phone: noms [facility] PODIATRYStart: 32-68-4758Tidfzf flowsFrancois Smith DPM Work Phone: noms [facility] PODIATRYStart: 08-28-2023 End: 78-85-6735Amwkteq encounter procedureButch Smith DPM Work Phone: noms [facility] PODIATRYComment on above:Onychomycosis (Primary Dx); 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); Pain in both feetStart: 08-18-2023 End: 65-23-7805eipltkzasyTdevbvv Springer Other [employer] [place] Other start: 71-18-1963Uusomtumu encounterHoma Mckeon [facility] Referral CoordinatorStart: 08-12-2023 End: 98-49-4625xrvowbpmmfGhrhfac Springer Other [employer] [place] Other start: 43-44-3549Rwmuat outpatient new 45 minutes Homa Olmedo [facility] NeurosurgeryStart: 08-12-2023 End: 96-48-3187Wzahzjg encounter procedureDO Ayanna Vicente Work Phone: [facility]-Start: 07-16-2023 End: 01-96-2249movpffajxmOoowy Girvin Other noEquipois [place] Other Start: 22-99-4005Gbmoblfkt encounterAyanna Larson [facility] [place]vueStart: 05-12-2023 End: 40-44-7735mmnxzmmfhwKren Braun Other [employer] [place] Other start: 95-24-4822Uramcnkmp encounterJunior Gong Referral CoordinatorStart: 05-07-2023 End: 85-65-3893aaaywhrprxRpaen Sakina Other [place] Other start: 16-94-1865Vcapcqsbd encounterDavid GeorgetetG Family Medicine [place]vueStart: 04-29-2023 End: 62-38-2424umyqwwwhahNuagq Sakina [facility] [place] Other Start: 01-54-2433Eawnazbnf encounterDavileonila PalominoG Family Medicine [place]vueStart: 04-25-2023 End: 79-94-0482bjlzzybgteEyfcf Sakina Other [facility] [place] Other Start: 65-75-2304Slnjwspxe encounterDavid GeorgetteG [facility] [place]vueStart: 04-24-2023 End: 62-81-0036nlylpfedzfXT David Girvin Work Phone: [facility] Work Phone: Start: 04-24-2023 End: 75-55-4740Leclcrx encounter procedureDO Ayanna Vicente Work Phone: [facility] Work Phone: Start: 04-22-2023 End: 13-20-3929rdzwewvvosMhhqz Girvin Other [facility] [place] Other Start: 80-81-8345Ciovjmqil encounterDavileonila PalominoG [facility] [place]vueStart: 04-15-2023 End: 41-08-8573xoxmifqlhvNrabq Girvin Other [facility] [place] Other Start: 06-73-8327Roivjv outpatient visit 25 minutes Ayanna Larson [facility] [place]vueStart: 04-14-2023 End: 79-28-0267mjquqkqoqkRfxmp Girvin Other [facility] [place] Other Start: 27-12-0288Dsepktpdi encounterDaperi Larson [facility]alsantinoueStart: 04-09-2023 End: 91-58-1323jbrrqgujclCI David Girvin Work Phone: [facility] Work Phone: Start: 04-09-2023 End: 99-04-1644Qsutwyc encounter procedureDO Ayanna Vicente Work Phone: [facility] [place] Work Phone: Start: 02-25-2023 End: 51-79-3717jygpesakxtYgtxb Girvin Other noEquipois [place] Other Start: 01-58-5784Lvyrgi outpatient visit 15 minutes [facility]arson [facility]: 02-11-2023 End: 77-98-0121Btbbrmi encounter procedureSUSAN RANDOLPH [facility] start: 02-07-2023 End: 52-53-7184cytvqyxhreIgsiz Karamlou MD Work Phone: Hematology/OncologyComment on above:CLL (chronic lymphocytic leukemia) (HCC) (Primary Dx)Start: 02-07-2023 End: 74-06-8729Jnpsyry encounter procedureSantos Lares MD Work Phone: SANDUSKYStart: 01-16-2023 End: 54-94-9650qflarqllouZqxxj Girvin Other noEquipois [place] Other Start: 80-73-7553Acwhhiwlg encounterDaperi Larson [facility] Elotart: 01-15-2023 End: 77-64-3654azmupkgfplCzeto Girvin Other [employer] [place] Other Start: 76-11-0354Hwjeggnmx encounterDavid SakinaFPG [facility] [place]Start: 01-07-2023 End: 01-37-3175xwjpeeqqhtXwtkk Girvin Other [employer] [place] Other Start: 84-67-2603Wgmcshbbw encounterDavid SakinaFPG [facility] [place]Start: 01-06-2023 End: 10-88-1173tawllaqtxiEdgxj Sakina Other noAirXpanders Other Start: 65-13-5090Vyxdbavwj encounterDavid GeorgetteG [facility] Medicine [place]vueStart: 84-60-4348jwfsynqzsgFQEitan VICENTEFacility:H1 Start: 10-16-2022 End: 54-98-9175cqnhghcyxjGzmyx Girvin Other noAirXpanders Other Start: 38-60-7008Wyxytpfoe encounterDavid SakinaFPG [facility] [place]vueStart: 10-02-2022 End: 81-10-0038hrxijgtvwhHnner Girvin Other [facility] [place] Other Start: 42-60-6519Pgagyiwbf encounterDavileonila PalominoG [facility] [place]vueStart: 09-30-2022 End: 71-55-9460buknimhalpXIMarisol Vicente Work Phone: [facility] Work Phone: Start: 09-30-2022 End: 84-47-7769Pcjreuk encounter procedureDO Ayanna Vicente Work Phone: [facility] [place] Work Phone: Start: 09-24-2022 End: 46-75-5047gspgmpxnkvYD David Girvin Work Phone: [facility] Work Phone: Start: 09-24-2022 End: 46-82-7942Rshdhcn encounter procedureDO Ayanna Vicente Work Phone: [facility]-[address] Work Phone: Start: 09-02-2022 End: 14-36-9040gsgkqesqhtEikvy Girvin Other [employer] Other Start: 10-77-5955Udrbaiiih encounterDaperi VicenteWestwood Lodge Hospitaltart: 08-29-2022 End: 21-35-2931uargngxaanAT David Girvin Work Phone: [facility] Work Phone: Start: 08-29-2022 End: 63-39-5197Ehsktpi encounter procedureDO Ayanna Vicente Work Phone: [facility] Work Phone: Start: 08-29-2022 End: 49-24-7493Tvganad encounter procedureDO Ayanna Vicente Work Phone: [facility]-[address] Work Phone: Start: 08-12-2022 End: 07-80-8186stinpeznsdWM David Girvin Work Phone: [facility] Work Phone: Start: 08-12-2022 End: 21-47-7021Pjiurhb encounter procedureDO Ayanna Vicente Work Phone: [facility] Work Phone: Start: 08-05-2022 End: 07-72-2235wxmuineyhrSbsph Girvin Other [employer] Other Start: 69-17-7953Yjjmizlxk encounterDavid GirvinFPG [facility] [place]vueStart: 90-31-2100bfnflsxwztHmrpk Clark Girvin Facility:[id number]: 07-24-2022 End: 71-74-9534shshiwsavcNK David Girvin Work Phone: [facility] Work Phone: Start: 07-24-2022 End: 47-87-9409Jjkdwms encounter procedureDO Ayanna Vicente Work Phone: [facility]-Electrodiagnostics Work Phone: Start: 21-43-9250Yajefvzim encounterSantos Lares MD Work Phone: Cancer Appts MCComment on above:Referral Information (ENT)Start: 07-19-2022 End: 00-62-2430onqdwzlkmfEpoxcLeonidas Lares MD Work Phone: Hematology/OncologyComment on above:CLL (chronic lymphocytic leukemia) (HCC) (Primary Dx); Right ear pain; Rib pain; Axillary adenopathy; Other signs and symptoms in breast ; Encounter for screening mammogram for malignant neoplasm of breastStart: 07-19-2022 End: 00-81-1903Owgrffz encounter Robbie Lares MD Work Phone: SANDUSKYStart: 05-31-2022 End: 85-99-7454fpwsocptncLqzhn Girvin Other [employer] Other Start: 10-06-6417Wufgezdgh encounterDaperi Larson Family [facility] ZoeevueStart: 05-14-2022 End: 27-77-0303qptvuhblsuWieru Girvin Other [employer] [place] Other Start: 92-97-1591Faxevshfz encounterDaperi Larson Family [facility] ZoeueStart: 04-24-2022 End: 32-21-9622lzywvzpupxQyqiu Girvin Other [facility] [place] Other Start: 95-06-3303Vpnsgione encounterDaperi Larson Family [facility] BellueStart: 33-04-6277Ablyvojlh encounterDaperi Larson [facility] HospitalueStart: 04-23-2022 End: 04-87-0277wvscxilixlLK David Girvin Work Phone: [place] Other Start: 04-23-2022 End: 94-73-5981Weafoce encounter procedureDO Ayanna Vicente Work Phone: [facility] CampusStart: 04-18-2022 End: 73-73-5587ikftefxcxcUoemlLeonidas Lares MD Work Phone: Hematology/OncologyComment on above:CLL (chronic lymphocytic leukemia) (HCC) (Primary Dx)Start: 04-18-2022 End: 26-52-5272Vryyxcm encounter Robbie Lares MD Work Phone: SANDUSKYStart: 04-10-2022 End: 74-86-0677qiatjrusdrNmojq Girvin Other [place] Other Start: 00-71-7921Qakyujcbx encounterDaperi Larson [facility]'start: 59-35-7269Sixuqewqr encounterNiurka Hood Hematology/OncologyComment on above:Care Coordination (Results)Start: 04-04-2022 End: 29-82-9839mpracktoecIsppkLeonidas Lares MD Work Phone: Hematology/OncologyComment on above:Lymphocytosis (Primary Dx)Start: 04-04-2022 End: 18-84-7204Hlezhhs encounter Robbie Lares MD Work Phone: SANDUSKYStart: 04-02-2022 End: 37-43-1366piympywmhlSexqe Girvin Other [employer]ois [place] Other Start: 72-01-4852Njszrw outpatient visit 40 minutes Ayanna Larson [facility] [place]Start: 04-01-2022 End: 99-19-9387Swluycr encounter procedureDO Ayanna Vicente Work Phone: [facility]-Lab Main CampusStart: 03-26-2022 End: 31-59-9912rowaosxjqhZmgew Girvin Other noAirXpand[employer] Other Start: 16-26-6956Yvgxcudgw encounterDavid SakinaFPG [facility] [place]vueStart: 03-19-2022 End: 20-39-2512trbqtnjzulZmvzy Sakina Other [facility] [place] Other Start: 63-74-9019Hiwphluqc encounterDavid SakinaFPG Family [facility] [place]Start: 03-13-2022 End: 82-15-8068keopqpthhcFcvra Sakina Other noAirXpand[employer] Other Start: 82-61-5272Gyxhsjpzi encounterDavid SakinaFPG [facility] [place]Start: 03-08-2022 End: 39-08-4922ozcrnmixfpJavqs Sakina Other [employer]AirXpand[employer] Other Start: 35-65-8623Gtvoxhxuy encounterDavid SakinaFPG [facility] [place]Start: 03-07-2022 End: 92-95-4772dncltucusvEbwxo Sakina Other [employer] [place] Other Start: 18-66-2295Efgirujwy encounterDavid GirbabiFPG [facility] [place]Start: 02-28-2022 End: 56-55-4021ewktmhdmjcVknms Sakina Other [employer] [place] Other start: 05-72-6030Vgvgezzvc encounterDavid GirabbiFPG [facility] [place]Start: 02-21-2022 End: 48-28-2669qajlstduprIjyih Girvin Other [employer] [place] Other Start: 70-93-6158Dvjsjefgj encounterDavid GirabbiFPG Family [facility] [place]Start: 02-18-2022 End: 57-38-8390ecposemdiwXpyfw Sakina Other [employer] [place] Other Start: 97-10-0436Snquuqzmi encounterDavid SakinaFPG [facility] [place]Start: 02-15-2022 End: 34-01-0310aclpghspzfCqugb Sakina Other noAirXpand[employer] Other Start: 86-46-3811Skktpcehe encounterDavid GirabbiFPG [facility] [place]Start: 02-11-2022 End: 94-48-3715iiiogszvxxPuoff Sakina Other [employer] [place] Other Start: 47-38-5272Mntnywhta encounterDavid GirabbiFPG [facility] [place]Start: 02-06-2022 End: 22-49-4988odkiulmovhPyqfb Sakina Other [employer] [place] Other Start: 70-99-8759Dwnxub outpatient visit 25 minutes Ayanna VicenteFPG [facility] [place]vueStart: 01-31-2022 End: 95-26-7324zlyjcnoobxFokti Sakina Other [employer] [place] Other Start: 34-99-3127Vgjqmeqkd encounterDavid GirvinFPG [facility] [place]Start: 01-15-2022 End: 61-29-5626Oxouecqwev and management of inpatientDO Ayanna Vicente Work Phone: [facility] [place] RehabStart: 01-13-2022 End: 09-60-1604Tyvinpvpla and management of inpatientDO Ayanna Vicente Work Phone: [facility] [place] Med SurgStart: 01-07-2022 End: 23-51-2927nxwwpcoeepLijhb Girabbi Other [employer] [place] Other Start: 18-61-4810Vmsowwesd encounterDavid Neo [facility] [place]Start: 12-27-2021 End: 38-62-5516eyuwhnymyaPzlvg Girabbi Other [employer] [place] Other Start: 49-27-5627Huhbtb outpatient visit 15 minutes Ayanna Larson [facility] [place]vueStart: 12-19-2021 End: 63-57-8408pwgvjqkeemGhbaa Sakina Other [employer] [place] Other Start: 89-78-2078Zacbflqui encounterDavid Neo [facility] [place]Start: 12-18-2021 End: 70-64-9598uickyhtibiYvurb Hykes Other [employer] [place] Other Start: 49-49-8904Etsjjqikh encounterDavid HyniltonFPG Referral CoordinatorStart: 12-17-2021 End: 27-65-9706nfqquuxxjkLsfro Hykes Other [employer] [place] Other Start: 54-78-4766Elgkxk outpatient new 45 minutesDavid DioniG GastroenterologyStart: 11-12-2021 End: 98-21-8574waruidrkdsEdccx Girvin Other [employer] [place] Other start: 98-25-4864Glqepgegg encounterDavid GirvinFPG [facility] [place]vueStart: 10-02-2021 End: 20-59-8227zylkrrlqrxPuvar Girvin Other [employer] [place] Other start: 21-11-5910Agiogrktg encounterDavid GirvinFPG [facility] [place]Start: 10-01-2021 End: 73-98-3438emvsotseylJkkfp Girvin Other [facility] [place] Other Start: 45-17-7403Pdeftjtru encounterDavid GirvinFPG [facility] [place]Start: 09-17-2021 End: 40-82-4464wvmqblxiseFixmf Girvin Other [facility] [place] Other start: 44-19-0320Scpjwymkt encounterDavid GirvinFPG [facility] [place]Start: 09-13-2021 End: 98-29-3768xuywymevmwTphbe Girvin Other [facility] [place] Other start: 65-95-1807Dnnpeqsoc encounterDavid GirvinFPG [facility] [place]Start: 09-12-2021 End: 41-91-8705dibtmworgbUfthw Girvin Other [employer] [place] Other start: 84-99-5975Ahhtqcwvl encounterDavid GirvinFPG [facility] [place]Start: 07-18-2021 End: 21-78-3474nazzwunerrEpvfn Girvin Other [employer] [place] Other start: 99-65-0082Mdrshoeiz encounterDavid GirvinFPG Family [facility] [place]Start: 06-18-2021 End: 50-03-9152zaxaqyaageZqifm Girvin Other [place] Other Start: 05-30-0265Azlgfjapa encounterDavid Neo [facility] HospitalueStart: 39-98-6663Vuarxlztt encounterDavid EarleabbiOASIS [facility]AL [facility] HospitalueStart: 08-85-4857Arvwai outpatient visit 25 minutesDavid EarleabbiOASIS BE[facility]IORAL [facility] HospitalueStart: 02-08-2021 End: 47-53-1792Arbail Brittanie Espinoza PA-C Work Phone: OrthopaedicsComment on above:Pain in both knees, unspecified chronicity (Primary Dx) Procedures DateProcedureProcedure DetailPerforming ClinicianStart: 22-74-2266Ncdgmmgte mammography of bilateral breastsDscott Vicente DO Work Phone: Start: 45-62-3748Uvrfl chest X-rayDaangelad Sakina DO Work Phone: Start: 69-95-8117VVUSJHLYLZC SKIN LESIONRylee Missy WALDROP Work Phone: Start: 18-93-4578Uxxpl Chuy Vicente DO Work Phone: Start: 00-93-6291DIK THYROID STIM HORMONEChristopher Aundrea DO Work Phone: Start: 73-74-8776Pikbp X-ray of left hipDaperi Vicente DO Work Phone: Start: 58-39-2794X-ray of left knee, four viewsDaperi Vicente DO Work Phone: Start: 24-88-5577Fqfbruwms mammography of bilateral breastRlO Ayanna Sakina Work Phone: Start: 50-20-1685Lpjwtdpj identified in Urine by Alejandro Vicente Work Phone: Start: 91-72-0551Smbxn Chuy Vicente DO Work Phone: Start: 34-79-1834Tenki cultureDO Ayanna Vicente Work Phone: Start: 73-34-4181Euskt x-ray of pelvis and lower extremityDO Ayanna Vicente Work Phone: Start: 66-99-5398B-ray of lumbar spine, four viewsDO Ayanna Vicente Work Phone: Start: 78-03-6284Z-ray of right kneeDO Ayanna Vicente Work Phone: Start: 13-09-1807SHI of cervical spine without contrastDO Ayanna Vicente Work Phone: Start: 98-95-4166TB pre/post mri xrayDO Ayanna Vicente Work Phone: Start: 66-19-9373Udzktlfqtjoqluk of left breastDO Ayanna Vicente Work Phone: Start: 57-64-1512Cfhnlavjs mammographyDO Ayanna Vicente Work Phone: Start: 96-89-6251VM lumbar spine wo conDO Ayanna Vicente Work Phone: Start: 28-04-1800GN pre/post mri xrayDO Ayanna Vicente Work Phone: Start: 68-42-6267Vhjly chest X-rayDO Ayanna Vicente Work Phone: Start: 74-98-8158VZU + DIFFSantos Lares MD Work Phone: Start: 75-39-4772Lqglttf dehydrogenase ldhSantos Lares MD Work Phone: Start: 96-77-8932Klnvwp scan of lower limb veinsDO Ayanna Vicente Work Phone: Start: 41-51-7326Yewcm X-ray of right hipDO Ayanna Vicente Work Phone: Start: 05-09-4855Ccfaowpmgjbqjlx of bilateral kidneys DO Ayanna Vicente Work Phone: Start: 23-75-3042PE cervical spine without contrastDO Ayanna Vicente Work Phone: Start: 52-47-5678JT of head without contrastDO Ayanna Vicente Work Phone: Start: 11-03-3595Bwdwj chest X-rayDO Ayanna Vicente Work Phone: Start: 23-31-7228Piypm X-ray of right wristDO Ayanna Vicente Work Phone: Start: 99-03-2552Rqkwm X-ray of right tibia and right fibulaDO Ayanna Vicente Work Phone: Start: 23-40-6929Ahshkrnan of botulinum toxin type A into detrusor muscle of urinary bladderJENNIFER JAX Start: 72-18-1119GmdedeyiikGUPMTQGX JAX Start: 75-59-8332Zjhprsi of operative procedure on lumbar spinal structureJENNIFER JAX Start: 86-98-8725Ppgotiqstdbl of kneeJENNIFER JAX Start: 69-77-0261Lfugqnzqzqtw of kneeJENNIFER JAX Start: 21-14-6013Bzrfrxv of hernia repairJENNIFER JAX Start: 80-38-6578CgzlmqqurtjxFNODGJHL JAX Start: 48-90-9704Qtgxvqc of hernia repairJENNIFER JAX Start: 07-14-1984H/O: hysterectomyJENNIFER JAX Bilateral inguinal hernia repairJENNIFER JAX Blood culture for bacteria, including anaerobic screen DO Ayanna Vicente Work Phone: ColonoscopyJENNIFER JAX Extraction of cataractJENNIFER JAX History of hernia repairSUSAN RANDOLPH SARS Antigen (LFIA)DO Ayanna Vicente Work Phone: Urine cultureDO Ayanna Vicente Work Phone: Plan of Treatment DateCare ActivityDetailAuthorStart: 22-91-0270Tcxqw microalbumin profile DTaP,Tdap,Td Vaccine (2 - Td or Tdap)[facility]: 99-12-7775Ieilgoco ScreeningDiabetes ScreeningMercy Health Clermont Hospitaltart: 78-33-4195Xmapiqbq Screening Diabetes ScreeningMercy Health Clermont Hospitaltart: 90-61-0928IACPESOF SCREENDIABETES SCREENMercy Health Clermont Hospitaltart: 12-19-2025 End: 68-88-2100Hticffp encounter xhuvxlcml75/08/2026 11:00 AM EDT Office Visit Rheumatology [address] [place] [address] [place] [address] [place] [address] Return in about 1 year (around 12/17/2025).RheumatologyComment on above:Return in about 1 year (around 12/17/2025).Start: 65-98-1366YNOPOOSY SCREENDIABETES SCREENMercy Health Clermont Hospitaltart: 04-18-2025 End: 46-99-9826Fbykmos encounter vldmyjdgw60/06/2025 2:30 PM EDT Office Visit [facility] [address] [place] [address] Tate Louis PA [address] [place] [address] ArrivedEL Bah DermatologyComment on above:ArrivedStart: 74-31-8218Cnsdcayjg vaccinationInfluenza Vaccine (#1)[facility] HealthcareStart: 01-28-2025 End: 13-24-1951Hvmklpb encounter /18/2025 10:30 AM EDT Office Visit [facility] [address] [facility] [address] [place] [address] Moe Betts DO [address] [facility] [address] [place] [address] NOMAj MOLINA GENGENESIStart: 11-25-2024 End: 86-68-4558Vnfdaow encounter qodkpyrpl30/15/2025 11:20 AM EDT Office Visit Rheumatology [address] [place] [address] [place] [address] [place] [address] 6 month follow upRheumatologyComment on above:6 month follow upStart: 11-24-2024 End: 61-65-1853Nswdco-up pntxkujtf85/14/2025 10:30 AM EDT Visit (SP) Office Hematology/Oncology [address] [place] [address] Chad Freitas MD [address] [place] [address] 6 month follow upHematology/OncologyComment on above:6 month follow upStart: 11-24-2024 End: 17-64-3086Hgpwbjm encounter smgozenev68/14/2025 10:15 AM EDT Office Visit [facility] [address] [place] [address] 6 month follow upNortMcLaren Greater Lansing Hospital LaboratoryComment on above:6 month follow upStart: 11-15-2024 End: 10-82-0927Xkplmrt encounter bgpnunvut19/05/2025 11:00 AM EDT Office Visit Rheumatology [address] [place] [address] [place] [address] [place] [address] 6 month follow upRheumatologyComment on above:6 month follow upStart: 77-80-1319Rflomll referralMercy Health Tiffin Hospital Work Phone: Start: 93-72-0112Yumjw-19 Vaccine ( season) Covid-19 Vaccine ( season)[facility]: 32-47-2421Lqous cultureCleveland Clinictart: 94-37-4925Zfehxkqn identified in Urine by CultureUrine [facility] Healthcaretart: 08-10-2024 End: 64-68-3732Ujqgn [facility] Southtart: 08-09-2024 End: 53-11-1142Ghfqyoi encounter procedureNOFULTON COUNTY [facility] ROUTEComment on above:ArrivedStart: 08-04-2024 End: 61-34-1866Iadpgvi encounter ncudbuldl35/22/2025 11:30 AM EST [facility] [address] [facility] [address] [place] [phone] [address] NEUROLOGYStart: 24-23-8114Sgwqaig Directive DiscussionAdvance Directive DiscussionMercy Health Clerm[facility] Hospitaltart: 06-28-2024 End: 51-91-6575Fwwqqzf encounter procedureNOEASTPOINTE HOSPITAL NEUROLOGYComment on above: Cognitive impairmentStart: 06-23-2024 End: 15-83-1094Mlpbaes encounter ivjtnpfwp17/11/2024 2:30 PM EST Consult [facility] [address] [facility] [address] [place] [phone] Moe Betts DO [address] [facility] [address] [place] [address] GENSStart: 06-17-2024 End: 51-79-6249Bvtfzfqzg (Vitamin B12) [Mass/volume] in Serum or PlasmaVitamin B12 Lab Routine Cognitive impairment Long-term use of high-risk medication Expected: 06/17/2024 (Approximate), Expires: 06/17/2025NON[facility] Work Phone: comment on above:Expected: 06/17/2024 (Approximate), Expires: 06/17/2025Start: 06-17-2024 End: 91-03-5837Ugaubsb encounter /05/2024 2:00 PM EST Office Visit [facility] [place] [address] [place] [address] Primo GuillaumealiciaDO [address] [place] [address] ArrivedNOFULTON COUNTY [facility]ALTH [facility] ROUTEComment on above:ArrivedStart: 06-17-2024 End: 78-57-5821Blrcynafavv [Units/volume] in Serum or PlasmaTSH Lab Routine Cognitive impairment Long-term use of high-risk medication Expected: 06/17/2024 (Approximate), Expires: 06/17/2025NONV HealthcareComment on above:Expected: 06/17/2024 (Approximate), Expires: 06/17/2025Start: 12-04-6424Mqijgwq referral [facility] Work Phone: Start: 43-61-8123Vopcszmy identified in Urine by CultureUrine UK Healthcaretart: 35-66-5949Dyvamzv [facility] Work Phone: Start: 77-71-3101Punbyoy [facility] Work Phone: Start: 11-17-2023 End: 54-07-7414Sdevhig encounter mirqduulc01/06/2024 1:15 PM EDT Procedure Visit [facility] [address] [place] [phone] Butch Smith DPM [address] [place] [address] [facility] PODIATRYStart: 47-30-2979Ytrwcdig identified in Urine by CultureCleveland Clinictart: 43-38-6443Cllitldu Vaccine (2 of 2)Shingrix Vaccine (2 of 2)[facility]: 08-10-2023 End: 06-02-4149PEH W Auto Differential panel - BloodCBC + DIFF Lab Routine CLL (chronic lymphocytic leukemia) ([facility]) Expected: 08/10/2023 (Approximate),Expires: 10/10/2023[facility] Work Phone: Comment on above:Expected: 08/10/2023 (Approximate), Expires: 10/10/2023Start: 08-10-2023 End: 24-74-5488Yjnbhyoxpsndc metabolic 2000 panel - Serum or PlasmaCOMP METABOLIC PANEL Lab Routine CLL (chronic lymphocytic leukemia) ([facility]) Expected: 08/10/2023 (Approximate), Expires: 10/10/2023[facility] Work Phone: Comment on above:Expected: 08/10/2023 (Approximate), Expires: 10/10/2023Start: 84-68-6410Poqbvxw Directive DiscussionAdvance Directive DiscussionMercy Health Clermont Hospitaltart: 61-30-6546Dvwqkywki vaccination [facility]art: 01-16-2023 End: 70-56-6625BSH W Auto Differential panel - BloodCBC + DIFF Lab Routine CLL (chronic lymphocytic leukemia) ([facility]) Expected: 01/16/2023 (Approximate),Expires: 03/18/2023[facility] Work Phone: Comment on above:Expected: 01/16/2023 (Approximate), Expires: 03/18/2023Start: 01-16-2023 End: 39-59-3484Slcfbigxbvqam metabolic 2000 panel - Serum or PlasmaCOMP METABOLIC PANEL Lab Routine CLL (chronic lymphocytic leukemia) ([facility]) Expected: 01/16/2023 (Approximate), Expires: 03/18/2023[facility] Work Phone: Comment on above:Expected: 01/16/2023 (Approximate), Expires: 03/18/2023Start: 18-22-4626VBAID-19 VACCINE (5 - Pfizer series)COVID-19 VACCINE (5 - Pfizer series)[facility]: 07-26-2022 End: 66-88-6635Rn breast uni real time with image limitedUS BREAST LTD LT Radiology Routine Axillary adenopathy Other signs and symptoms in breast Expected:07/26/2022, Expires: 08/18/2023[facility] Work Phone: Comment on above:Expected: 07/26/2022, Expires: 08/18/2023Start: 07-19-2022 End: 09-68-3465ROI W Auto Differential panel - BloodCBC + DIFF Lab Routine CLL (chronic lymphocytic leukemia) ([facility]) Expected: 07/19/2022 (Approximate),Expires: 09/18/2022[facility] Work Phone: Comment on above:Expected: 07/19/2022 (Approximate), Expires: 09/18/2022Start: 07-19-2022 End: 98-80-2625Hugzcnxmmewyq metabolic 2000 panel - Serum or PlasmaCOMP METABOLIC PANEL Lab Routine CLL (chronic lymphocytic leukemia) ([facility]) Expected: 07/19/2022 (Approximate), Expires: 09/18/2022[facility] Work Phone: Comment on above:Expected: 07/19/2022 (Approximate), Expires: 09/18/2022Start: 07-19-2022 End: 41-48-0917Gwwrxjs dehydrogenase [Enzymatic activity/volume] in Serum or PlasmaLD LACTATE DEHYDRO Lab Routine CLL (chronic lymphocytic leukemia) ([facility]) Expected: 07/19/2022 (Approximate), Expires: 09/18/2022[facility] Work Phone: Comment on above:Expected: 07/19/2022 (Approximate), Expires: 09/18/2022Start: 10-09-2684WAIDDRP DIRECTIVE DISCUSSIONADVANCE DIRECTIVE DISCUSSIONMercy Health Cl[facility] Hospitaltart: 69-89-3585EPXHENVLWN ASSESSMENT DEPRESSION ASSESSMENTMercy Health Clermont Hospitaltart: 04-04-2022 End: 97-00-0269Eynx-2-Microglobulin [Mass/volume] in Serum or PlasmaSelect Medical [facility] Work Phone: Comment on above:Expected: 04/04/2022, Expires: 06/04/2022tart: 04-04-2022 End: 40-08-8250Rvbxgpl hepatitis differentiation between hepatitis B and C virus panel - Serum or PlasmaSelect Medical [facility] Work Phone: Comment on above:Expected: 04/04/2022, Expires: 06/04/2022tart: 04-04-2022 End: 76-20-6163VLCP CYTOMETRY PERIPHERAL BLOOD LEUK/LYMPH (FCLEUK)[facility] Work Phone: Comment on above:Expected: 04/04/2022, Expires: 06/04/2022tart: 83-93-7362Kkobtsleb vaccinationINFLUENZA (#1)[facility] Start: 74-36-4216WuxrppvleCleveland Clinictart: 98-62-3860Viaiikknltdr [facility] Clinictart: 62-08-2455Tohdipkz admissionCleveland Clinictart: 28-66-3102Imlyvogo to clinical allergistCleveland Clinictart: 30-00-4645CzpyohfqmRegency [facility] Work Phone: Start: 21-63-2153Koebmena admissionRegency Hospital [facility]tr Work Phone: Start: 74-19-4300ICGES-19 VACCINE (4 - Booster for Pfizer series)COVID-19 VACCINE (4 - Booster for Pfizer series)[facility] Start: 06-33-0131SXMRFGZ DIRECTIVE DISCUSSIONADVANCE DIRECTIVE DISCUSSION [facility]: 45-09-0632HFYAEWMMGA ASSESSMENTDEPRESSION ASSESSMENT [facility]tart: 24-50-0481Wteyddoku vaccinationINFLUENZA (#1)[facility] Hospitaltart: 72-38-1322ZQXLNOT DIRECTIVE DISCUSSIONADVANCE DIRECTIVE DISCUSSION [facility]: 15-86-5877PUOG DENSITYBONE DENSITYMercy Health Clermont Hospitaltart: 05-09-6396IKIIHBYLIWHV: 65+ (1 - PCV)PNEUMOCOCCAL: 65+ (1 - PCV)[facility] Start: 69-10-2579KMEOOQDPC AGE 65 AND OVER WITH 5YR LOOKBACK (#1)PNEUMOVAX AGE 65 AND OVER WITH 5YR LOOKBACK (#1)[facility]: 52-76-1877Xsngrnksi for osteoporosisBone Density ScreeningMercy Health Clermont Hospitaltart: 53-04-5574Csgrucmqq for malignant neoplasm of colonMercy Health Clermont Hospitaltart: 98-75-2813UPGORDWP VACCINE (1 of 2)SHINGRIX VACCINE (1 of 2)[facility]: 38-59-5485LZLVWORT SCREENDIABETES SCREENMercy Health Clermont Hospitaltart: 36-35-3728CXFIAPFE VACCINE (1 of 2) SHINGRIX VACCINE (1 of 2)[facility]: 05-56-2051Azdkw microalbumin profileDTAP,TDAP,TD (1 - Tdap)[facility]: 97-36-6421Tvbcbjs Screening Anxiety ScreeningMercy Health Clermont Hospitaltart: 66-27-2333Ajceuzguli ScreeningDepression ScreeningMercy Health Clermont Hospitaltart: 60-06-7451Ffcriqjyu B surface antibody levelLDL CholesterolMercy Health Clermont Hospitaltart: 38-35-4010UYDBKVLRN C SCREENINGHEPATITIS C SCREENINGMercy Health Clermont Hospitaltart: 83-65-9812Jmjng depression screening assessment DEPRESSION SCREENINGMercy Health Clermont Hospitaltart: 77-01-0203BJNIC-19 VACCINE (1)COVID- 19 VACCINE (1)[facility]: 39-68-6897Mggxumnw foot examinationDiabetic Foot ExamMercy Health Clermont Hospitaltart: 17-52-4903Unsnqbpw screeningDilated Retinal ExamMercy Health Clerm[facility] Hospitaltart: 32-46-7488Rvpzqewyu B screeningUrine Albumin:Creatinine RatioMercy Health Clermont Hospitaltart: 18-68-1605NJXSHXUDGMMV: 65+ (1 - PCV)PNEUMOCOCCAL: 65+ (1 - PCV)[facility]: 03-87-4430Digzuwkpwu A1c atptcivupptJiZ3LRqfnmqwec ClinicBacteria identified in Urine by CultureOhio State East HospitalCBC W Auto Differential panel - BloodCBC + DIFF Lab Routine Lymphocytosis 04/04/2022 11:00 AM [facility] Work Phone: CB W Auto Differential panel - BloodCOMPLETE BLOOD COUNT AND DIFFERENTIAL Lab Routine CLL (chronic lymphocytic leukemia) (HCC) 05/26/2024 2:20 PM [facility] Work Phone: comprehensive metabolic 1999 panel - Serum or Plasma [facility] HospitalComprehensive metabolic 1999 panel - Serum or PlasmaOhio State East HospitalComprehensive metabolic 1999 panel - Serum or PlasmaOhio State East HospitalComprehenve metabolic 1999 panel - Serum or PlasmaOhio State East HospitalFLOW CYTOMETRY PERIPHERAL BLOOD LEUK/LYMPH (FCLEUK)FLOW CYTOMETRY PERIPHERAL BLOOD LEUK/LYMPH (FCLEUK) Lab Routine Lymphocytosis 04/04/2022 11:02 AM [facility] Work Phone: FLOW SLIDEFLOW SLIDE Lab Routine Lymphocytosis 04/04/2022 11:02 AM [facility] Work Phone: Glucose measurement estimated from glycated hemoglobin [facility] HospitalHepatitis B virus core Ab [Presence] in Serum HEP B CORE AB TOTAL Lab Routine Lymphocytosis 04/04/2022 11:00 AM [facility] Work Phone: Hepatitis B virus surface Ab [Presence] in SerumHEP B SURF AB QUAL Lab Routine Lymphocytosis 04/04/2022 11:00 AM [facility] Work Phone: Hepatitis B virus surface Ab [Presence] in Serum by ImmunoassayHEP B SURF AG SCRN Lab Routine Lymphocytosis 04/04/2022 11:00 AM T [facility] Work Phone: Hepatitis C virus Ab [Presence] in SerumHEP C AB IA W/CONF SCRN Lab Routine Lymphocytosis 04/04/2022 11:00 AM [facility] Work Phone: End: 29-85-1835VYN SCREENING W TOMOMAM SCREENING W NEYDA Radiology Routine Encounter for screening mammogram for malignant neoplasm of breast 1 Occurrences starting 07/19/2022 until 08/18/2023[facility] Work Phone: Comment on above:1 Occurrences starting 07/19/2022 until 08/18/2023MG Breast - bilateral ScreeningOhio State East Hospital MG Breast - bilateral ScreeningOhio State East HospitalPatient EducationWrist Fracture (DC)[facility] Work Phone: Patient referralRegency Hospital [facility] Work Phone: End: 59-43-1360Ksjyghsxtg exam knee complete 4/more viewsXR KNEE GENERAL 4V AP BOTH/PA BOTH/LAT/MERC BILAT Radiology Routine Pain in both knees, unspecified chronicity 1 Occurrences starting 02/08/2021 until 2[facility] Comment on above:1 Occurrences starting 02/08/2021 until 03/10/2022 End: 72-90-2517Kuhqskykho examination pelvis 1/2 viewsXR PELVIS 1V AP Radiology Routine Pain in both knees, unspecified chronicity 1 Occurrences starting 02/08/2021 until 2[facility] ClinicComment on above:1 Occurrences starting 02/08/2021 until 2Renal function 1999 panel - Serum or Plasma [facility] HospitalRenal function 2000 panel - Serum or Plasma [facility] Clinicerum fructosamine measurementRegency Hospital [facility]tr Work Phone: Urine [facility] HospitalUrine [facility] HospitalUS Kidney - bilateralOhio State East HospitalXR Chest 2 [facility] HospitalXR Hip - left 2 [facility] HospitalXR Knee - left 4 [facility] End: 07-71-5719TZ RIBS/CHEST 3V AP RIB/OBLS/CXR LEFTXR RIBS/CHEST 3V AP RIB/OBLS/CXR LEFT Radiology Routine Rib pain 1 Occurrences starting 07/19/2022 u ntil 4[place] Work Phone: Comment on above:1 Occurrences starting 07/19/2022 until 4Cclevel[facility] clinic [facility] hospitaland [facility] Immunizations Immunization DateImmunizationNotesCare PxweclekFbmremgh41-92-5984HGCSY-44 (PFIZER) 12Y and olderDavid Sakina DO Work Phone: [facility]09-06-2024influenza virus vaccine, unspecified formulationJENNIFER JAX [facility]09-06-2024influenza, high dose seasonal, preservative-freeDavid Girvin DO Work Phone: [facility]12-11-2023COVID-19 (PFIZER) 12Y and olderOhio State East Hospital12-11-2023 Pneumococcal Conjugate Vaccine, 20 [facility]Bl[facility] 39-82-4110ULI, preF3, adj, pfOhio State East Hospital12-11-2023zoster vaccine [facility]10-03-2023influenza, high dose seasonal, preservative-freeDavileonila Vicente Other [facility] [employer] Other [id number] QIV High-Dose 65YR+[facility]10-03-2023influenza virus vaccine, unspecified formulationJohn Lemoyne DPM Work Phone: [facility]10-10-2022 pneumococcal polysaccharide vaccine, 23 valentDaperi Vicente Other [facility]10-06-2022COVID-19 mRNA Bivalent Booster (Pfizer)[facility]2022tetanus toxoid, reduced diphtheria toxoid, and acellular pertussis vaccine, adsorbed Ayanna Vicente Other [facility]11-19-2021COVID-19 Vaccine Pfizer - Documentation Purposes OnlyDavileonila Vicente Other [facility]10-13-2021influenza virus vaccine, unspecified formulationJENNIFER JAX [facility]09-22-2021influenza, high dose seasonal, preservative-freeDavileonila Vicente Other [facility] Other 005410-22-4963drvjwtmqx virus vaccine, unspecified formulationDO Ayanna Girabbi Work Phone: [facility]09-22-2021Influenza, High-dose Seasonal, Quadrivalent, Preservative FreeJohn Lemoyne DPM Work Phone: [facility] HospitalRlrusavpwj45-52-3335HBUPQ-34 Vaccine Pfizer - Documentation Purposes OnlyDavid Girabbi Other [facility]02-19-2021SARS-CoV-2 (COVID-19) mRNA-1273 vaccineJENNIFER JAX [facility]01-29-2021COVID-19 Vaccine Pfizer - Documentation Purposes OnlyDaperi Ogabbi Other [facility]01-29-2021SARS-CoV-2 (COVID-19) mRNA-8420 vaccineJENNIFER JAX [facility]09-01-2020influenza virus vaccine, unspecified formulationJENNIFER JAX [facility]01-01-2020pneumococcal conjugate vaccine, 13 [facility]09-21-2019influenza virus vaccine, unspecified formulationJENNIFER JAX [facility]09-21-2019Seasonal trivalent influenza vaccine, adjuvanted, preservative [facility]09-21-2019pneumococcal polysaccharide vaccine, 23 valentDavid Girvin Other [facility]09-21-2019influenza, seasonal, injectableDavid Girvin Other [facility]11-12-2018influenza virus vaccine, unspecified formulationJEJULIETTE RANDOLPH [facility]11-12-2018Influenza, injectable, [place] [facility] Kidney, preservative free, quadrivalentOhio State East Hospital11-12-2018influenza, seasonal, injectableDavid Girvin Other [facility]10-10-2018Kenalog -40 mgDavid Girvin Other [facility] Other Payers DatePayer CategoryPayerPolicy [id number]-[id number] Health InsuranceOH[facility] AARP SUPPLEMENT [id number] 2020-Present Indemnity [id number] Health [id number] 2007MedicareMEDICARE MEDICARE A AND B [id number] 2007-Present [place], [place] [id number] 2007Medicare [id number] [id number] 2.16.840.2.18935[id number] 2.16.840.9.767814.8545-21-1942 [id number] 2.16.840.1.517314.3.579.[id number] 2.16.840.1.598892.3.579.2.60146-60-2392Mybpmuw62844917 2.16.840.1.308102.3.57[id number] 2.16.840.1.071095.3.579.2.42286-06-6724Ylxmuty60974654 2.16840.1.351662.3.579.2.71906-97-5330Xwfxejh64688794 2.16840.1.711837.3.579.2.81521-54-8031Raxalff281323689 2.16.840.1.784660.3.579.2.25658-77-2873Cdvsdzk100574189 2.16.840.1.461508.3.579.2.01879-87-9415Dtrqbmh706406038 2.16840.1.122492.3.579.2.19650-65-1357Sswznmz149840657 2.16.840.1.553529.3.579.2.69407-41-4396Fhduewg273430905 2.16840.1.587840.3.579.2.47719-33-4605Dfqduxx655146842 2.16.840.1.519537.3.579.2.97219-18-2262Fgccqdr322253924 2.16.840.1.301626.3.579.2.86382-19-2152Mujzxgk253834312 2.16.840.1.675569.3.579.2.61817-61-6653Zclvgfy426692733 2.16.840.1.876136.3.579.2.51268-96-6030Jftllzm813749847 2.16.840.1.446705.3.579.2.72750-90-1185Xvogsfq287157373 2.840.1.727026.3.579.2.97554-51-1731Efwdxax796816884 2.840.1.218252.3.579.2.02248-98-9877Opfxjjz802306580 2.840.1.572433.3.579.2.81422-90-7894Sbtyekk668712690 2.840.1.605799.3.579.2.17368-25-0130Clmrcub49528478 2.840.1.705145.3.579.2.244123-15-6891Gonjqis51505863 2.840.1.849553.3.579.2.124187-67-4657Qhmaewk3944040 2.840.1.521581.3.579.2.439366-67-6404Dtcmobq7407820 2.840.1.683740.3.579.2.168718-14-1353Xvgvwpt5241481 2.840.1.627045.3.579.2.053001-09-5962Foodoxo4620110 2.16.840.1.170891.3.579.2.661422-22-6163Bovurnj3758362 2.16.840.1.983417.3.579.2.6689Hlkqdmy66006825 2.16840.1.430775.3.579.2.531 Aexjsje60267447 2.16.840.1.025553.3.579.2.246Lajqfcy88148124 2.16.840.1.431436.3.579.2.379Ntljaqk17648391 2.16.840.1.701653.3.579.2.531 Nbwyqjk61520973 2.16.840.1.110988.3.579.2.627Fnnscop54086978 2.16.840.1.463464.3.579.2.294Owoksnn06861491 2.16.840.1.425188.3.579.2.531 Social History DateTypeDetailFacilityStart: 02-20-2004 End: 88-22-3813Rnvcjux smoking status NHISFormer smokerOhio State East HospitalComment on above:quit smoking in 1984Start: 07-14-1979 End: 40-62-6249Dczpfgx of tobacco useCurrent smokerTrihealth Work Phone: Start: 52-21-9325Dfxguuq intakeNot AskedMercy Health Clermont Hospitaltart: 23-70-7705Fcv Assigned At BirthNot on fileMercy Health Clermont Hospitaltart: 02-07-2023 End: 51-40-8199Zqk [facility]igned At [facility]: 23-74-6637Mgi [facility]igned At [facility]: 07-14-1979 End: 45-86-2752Fuyzpeq of tobacco useCigarette SmokerMercy Health Clermont Hospitaltart: 04-04-2022 End: 20-06-2892Lagiwswnet smoked current (pack per day) - Reported1.5CSt. John of God Hospitaltart: 04-04-2022 End: 42-36-2538Fordfba use and exposureSmokeless tobacco non-userMercy Health Clermont Hospitaltart: 04-04-2022 End: 66-16-6865Ktbysbm intakeEx-drinker (finding)[facility] Hospitaltart: 03-25-2022 End: 77-19-7961Zzoatmqw to SARS-CoV-2 (event)Not sureTrihealthAdzuni comprehensive health center Depression Screening Cykxpohmuh7Bapemcege ClinicCommarshfield medical center on above:quit smoking in 1984Start: 39-19-9263Iabsgna smoking status NHISNever smoked tobaccoNOMS HealthcareStart: 08-21-2023 End: 21-20-0568Dosikia intakeCurrent drinker of alcohol (finding)[facility] Start: 38-30-2619Vfkoupj CommentAlcohol: 1-2 drinks occasionally. Caffeine: 3-4 cups/day coffeeNOMS HealthcareStart: 05-27-2024 End: 96-51-6513ArmEvtxii (finding)[facility] Clinicexual OrientationExecutive [facility]rology of [facility] Medical Equipment Procedure CodeEquipment CodeEquipment Original TextEquipment IdentifierDates Start: 67-23-7904SSVYSLBUJ FUSELOX LUMBARFDAStart: 93-46-4146OOEYIOZX RELINE SCREWFDAStart: 12-80-8058FRRECNEV RELINE SCREWFDAStart: 11-67-5070NXIDYXKD RELINE SCREWFDAStart: 78-32-8047ENIDVFNP RELINE SCREWFDAStart: 03-24-2017 NUVASIVE RODFDAStart: 12-73-4323BKCINUAW RODFDAStart: 86-53-1808XCZCNPCD GRANULES 10CCFDAStart: 67-05-3852IQSHRBQIZ FUSELOX LUMBARFDAStart: 03-24-2017 [place] Level DeformityFDAStart: 15-42-3715EFFFGUEYKX 15CC CRUSHEDFDAStart: 32-93-2910WXKJAYTKW CAPLOX II MED/LGFDAStart: 43-13-6439JVSQNTIZ LOCK SCREWSFDA Start: 05-07-4846SXKIWVRH LOCK SCREWSFDAStart: 43-64-6356CQXACPRV LOCK SCREWSFDA Start: 63-67-4700EXILRWMX LOCK SCREWSFDAStart: 78-38-0808JSTOKCRBU FUSELOX LUMBARFDAStart: 06-24-0506VOAJLTDD RELINE SCREWFDAStart: 85-21-1460CGURCYHT RELINE SCREWFDAStart: 49-89-8479XWNSZUGS RELINE SCREWFDAStart: 03-24-2017 NUVASIVE RELINE SCREWFDAStart: 20-00-5200IMREDHZT RODFDAStart: 03-24-2017 NUVASIVE RODFDAStart: 34-20-4667HRAZSGBK GRANULES 10CCFDAStart: 03-24-2017 ALLOGRAFT FUSELOX LUMBARFDAStart: 29-71-8446Mjcjrt One Level DeformityFDAStart: 22-23-6164RBQONVUSEB 15CC CRUSHEDFDAStart: 37-31-3989GVFAICHJS CAPLOX II MED/LG FDAStart: 37-12-3348GGMMBOFF LOCK SCREWSFDAStart: 24-19-8736KGNRAZFZ LOCK SCREWS FDAStart: 52-88-3745SVZKRVFA LOCK SCREWSFDAStart: 53-93-9349YRINGSXD LOCK SCREWS FDAStart: 43-01-2046PABQDRATL FUSELOX LUMBARFDAStart: 78-15-7372JDLXNHWY RELINE SCREWFDAStart: 55-99-3213CDNKDZEN RELINE SCREWFDAStart: 04-65-0020ZRSLXXXX RELINE SCREWFDAStart: 39-01-5045ELHVIZIN RELINE SCREWFDAStart: 03-24-2017 NUVASIVE RODFDAStart: 30-88-4044SNPIHLQC RODFDAStart: 20-39-4032BDRGLGHH GRANULES 10CCFDAStart: 45-23-4928ASYMLRJEI FUSELOX LUMBARFDAStart: 03-24-2017 [place] One Level DeformityFDAStart: 59-92-3873EDZLCQTMJP 15CC CRUSHEDFDAStart: 10-32-0782ODIMCQUDC CAPLOX II MED/LGFDAStart: 66-52-4567FLGTSMXG LOCK SCREWSFDA Start: 41-42-4219IWZTAJLA LOCK SCREWSFDAStart: 96-00-2815YTJRENCE LOCK SCREWSFDA Start: 10-65-0543RCGTIVUJ LOCK SCREWSFDAStart: 42-07-7319ICFJFNEGZ FUSELOX LUMBARFDAStart: 63-18-9857CRVQJBBS RELINE SCREWFDAStart: 59-35-5802OYMXEXKX RELINE SCREWFDAStart: 60-76-1631IUSZZKCX RELINE SCREWFDAStart: 09-11-2017 NUVASIVE RELINE SCREWFDAStart: 73-84-9090ADLIJQUQ RODFDAStart: 03-24-2017 NUVASIVE RODFDAStart: 76-10-1984QUSVROEC GRANULES 10CCFDAStart: 03-24-2017 ALLOGRAFT FUSELOX LUMBARFDAStart: 54-37-7060Dbwqgd One Level DeformityFDAStart: 52-53-9841HDWCNLALMW 15CC CRUSHEDFDAStart: 00-27-7195XIDRIYWVY CAPLOX II MED/LG FDAStart: 63-88-5753JCZVOWFA LOCK SCREWSFDAStart: 79-06-0502VCZSFNPO LOCK SCREWS FDAStart: 51-22-4125UJJHAQCO LOCK SCREWSFDAStart: 64-80-1460ZSOGWGAR LOCK SCREWS FDAStart: 71-09-3239NITKFZIWL FUSELOX LUMBARFDAStart: 25-15-9135TNIQDXMZ RELINE SCREWFDAStart: 07-25-9498SBWTWLBV RELINE SCREWFDAStart: 29-92-7586CIPFBJLT RELINE SCREWFDAStart: 76-17-2403UTPFOEYH RELINE SCREWFDAStart: 03-24-2017 NUVASIVE RODFDAStart: 17-48-6318JUKWCSEA RODFDAStart: 62-49-8099UYRODEQO GRANULES 10CCFDAStart: 04-12-5680WHIFVYQHA FUSELOX LUMBARFDAStart: 03-24-2017 [place] One Level DeformityFDAStart: 85-15-5979QTDVZPSTDB 15CC CRUSHEDFDAStart: 30-25-6253HOFAYVYDX CAPLOX II MED/LGFDAStart: 21-36-7674SAXXALTK LOCK SCREWSFDA Start: 01-08-0723IHBXLKJM LOCK SCREWSFDAStart: 09-90-2682EGZXMSPD LOCK SCREWSFDA Start: 98-52-8718JZSMKMNS LOCK SCREWSFDAStart: 90-29-2284ITIVYROAC FUSELOX LUMBARFDAStart: 70-64-4456KWXLYYME RELINE SCREWFDAStart: 55-92-5855DFCQOTNU RELINE SCREWFDAStart: 96-84-9553MGTLHLUY RELINE SCREWFDAStart: 03-24-2017 NUVASIVE RELINE SCREWFDAStart: 92-70-1113SQXFPUQZ RODFDAStart: 03-24-2017 NUVASIVE RODFDAStart: 14-70-6365COGPSKBE GRANULES 10CCFDAStart: 03-24-2017 ALLOGRAFT FUSELOX LUMBARFDAStart: 19-18-9751Ugnrmj One Level DeformityFDAStart: 67-99-4562IOYMNEYRCB 15CC CRUSHEDFDAStart: 78-02-3790WGGQZYBCF CAPLOX II MED/LG FDAStart: 57-01-6451VTMPAXRO LOCK SCREWSFDAStart: 46-33-2146FBKQGAFX LOCK SCREWS FDAStart: 98-05-1970CVKSOIFB LOCK SCREWSFDAStart: 95-16-3336YRBMDCFC LOCK SCREWS FDAStart: 17-01-5705BFSUXSXFY FUSELOX LUMBARFDAStart: 56-30-9827CKPURDOC RELINE SCREWFDAStart: 04-89-7081HSOKDLHM RELINE SCREWFDAStart: 48-87-9183GGISVWOY RELINE SCREWFDAStart: 16-35-3536VOSPQWSG RELINE SCREWFDAStart: 03-24-2017 NUVASIVE RODFDAStart: 64-66-7579KYAOZUKE RODFDAStart: 39-89-2377TSCNWOOZ GRANULES 10CCFDAStart: 44-04-9875ROBLLABGU FUSELOX LUMBARFDAStart: 03-24-2017 [place] One Level DeformityFDAStart: 97-68-5427MGSVRUHRJA 15CC CRUSHEDFDAStart: 01-44-4732MNEDIEYZU CAPLOX II MED/LGFDAStart: 09-60-1396MOQZDZNQ LOCK SCREWSFDA Start: 84-43-2061KDEEQNGJ LOCK SCREWSFDAStart: 71-54-5894PBYUISVN LOCK SCREWSFDA Start: 28-28-9694QCEOLJDZ LOCK SCREWSFDAStart: 40-38-0803EUCNXLUYP FUSELOX LUMBARFDAStart: 45-75-8598AZTYKZFI RELINE SCREWFDAStart: 45-25-3001PXHQQSDL RELINE SCREWFDAStart: 80-29-7089OXJZWPGZ RELINE SCREWFDAStart: 03-24-2017 NUVASIVE RELINE SCREWFDAStart: 10-42-1341OQTGCRJS RODFDAStart: 09-11-2017 NUVASIVE RODFDAStart: 95-47-4266GODJQHRS GRANULES 10CCFDAStart: 03-24-2017 ALLOGRAFT FUSELOX LUMBARFDAStart: 95-72-3916Nmamid One Level DeformityFDAStart: 20-72-1705WQKUKZROOV 15CC CRUSHEDFDAStart: 35-07-6720ISUDPAYMY CAPLOX II MED/LG FDAStart: 88-33-0175FOOICKQZ LOCK SCREWSFDAStart: 85-17-8706OPOJUNCG LOCK SCREWS FDAStart: 91-48-1070QXORMNSZ LOCK SCREWSFDAStart: 89-46-0971DCEEIDAU LOCK SCREWS FDAStart: 50-35-8262KXEZXTDYP FUSELOX LUMBARFDAStart: 74-25-3129ZITURMSN RELINE SCREWFDAStart: 76-71-8017TKACLIUT RELINE SCREWFDAStart: 77-07-6274CNWGIRHB RELINE SCREWFDAStart: 38-43-1324BUHQKYQR RELINE SCREWFDAStart: 03-24-2017 NUVASIVE RODFDAStart: 97-85-0635AVWFQMQT RODFDAStart: 35-42-4514TFZGZKXS GRANULES 10CCFDAStart: 42-81-7107HMEZXLOJV FUSELOX LUMBARFDAStart: 03-24-2017 [place] One Level DeformityFDAStart: 16-45-9500WOLIOPNLNJ 15CC CRUSHEDFDAStart: 65-52-0387MTSXYXDFF CAPLOX II MED/LGFDAStart: 20-54-4688JWHUFBLG LOCK SCREWSFDA Start: 99-29-6365FEOQCDGY LOCK SCREWSFDAStart: 02-05-8071GFOVCHYR LOCK SCREWSFDA Start: 90-57-3092FSOPVEKO LOCK SCREWSFDAStart: 17-61-0424XZHXJXCIL FUSELOX LUMBARFDAStart: 78-10-8503SKZCPYJP RELINE SCREWFDAStart: 87-76-4962ZRATJKYN RELINE SCREWFDAStart: 52-98-4425AVCCHNDL RELINE SCREWFDAStart: 03-24-2017 NUVASIVE RELINE SCREWFDAStart: 13-81-8622KLPWCXSH RODFDAStart: 03-24-2017 NUVASIVE RODFDAStart: 27-39-7592EDHQMKHV GRANULES 10CCFDAStart: 03-24-2017 ALLOGRAFT FUSELOX LUMBARFDAStart: 07-76-7045Mfegnu One Level DeformityFDAStart: 08-08-9498LOUDNUQNZE 15CC CRUSHEDFDAStart: 11-39-4782MGWJRKEZY CAPLOX II MED/LG FDAStart: 99-39-2710GEGNZWDW LOCK SCREWSFDAStart: 51-59-8936RVFXPJNH LOCK SCREWS FDAStart: 91-81-5628BZBUTGEY LOCK SCREWSFDAStart: 14-26-5249PDIKWUNM LOCK SCREWS FDAStart: 72-10-3128TUKWDKXIN FUSELOX LUMBARFDAStart: 75-27-1537FXOJGAQC RELINE SCREWFDAStart: 57-64-4696ALQRJNFN RELINE SCREWFDAStart: 28-48-7773QTRMBDTE RELINE SCREWFDAStart: 32-26-0101RQYCHTVJ RELINE SCREWFDAStart: 03-24-2017 NUVASIVE RODFDAStart: 88-07-9908UNGJJLCN RODFDAStart: 97-90-1675ORYGAMVN GRANULES 10CCFDAStart: 53-95-8375JTPWHJIHN FUSELOX LUMBARFDAStart: 03-24-2017 [place] One Level DeformityFDAStart: 06-57-1394CYEWPOATMM 15CC CRUSHEDFDAStart: 90-00-9529NMZRPCZMR CAPLOX II MED/LGFDAStart: 26-50-1059ZVDCWWHL LOCK SCREWSFDA Start: 95-63-0534GVZPOBLV LOCK SCREWSFDAStart: 04-93-0560XKYOCDYJ LOCK SCREWSFDA Start: 43-36-6242GVYVZNZU LOCK SCREWSFDAStart: 17-78-2690BASKCUMGN FUSELOX LUMBARFDAStart: 47-90-9662NNCTHWBK RELINE SCREWFDAStart: 88-40-0967ORMDTOXG RELINE SCREWFDAStart: 69-26-9657BEMNSMWL RELINE SCREWFDAStart: 03-24-2017 NUVASIVE RELINE SCREWFDAStart: 46-03-3908QSHVSANF RODFDAStart: 03-24-2017 NUVASIVE RODFDAStart: 80-37-7821CFRZYBFO GRANULES 10CCFDAStart: 03-24-2017 ALL[place]RA[place] FUSELOX LUMBARFDAStart: 15-85-3167Uxrntr One Level DeformityFDAStart: 17-00-7505RVFDBJFGJK 15CC CRUSHEDFDAStart: 13-63-2115DRMARNRWV CAPLOX II MED/LG FDAStart: 30-81-7810ESCTEXNL LOCK SCREWSFDAStart: 11-51-2077XDJDQAZJ LOCK SCREWS FDAStart: 52-91-6830JVQHGVAW LOCK SCREWSFDAStart: 39-84-8080NUWWTPOT LOCK SCREWS FDAStart: 10-64-4586JRWLJEGZB FUSELOX LUMBARFDAStart: 47-54-0406NHOHQHQI RELINE SCREWFDAStart: 24-62-5118DQNHRBOM RELINE SCREWFDAStart: 35-22-9314WPVCTRPK RELINE SCREWFDAStart: 89-45-4345YYNDHQJB RELINE SCREWFDAStart: 03-24-2017 NUVASIVE RODFDAStart: 47-49-0810WTOSAHRN RODFDAStart: 27-53-6540ZJNAVMRE GRANULES 10CCFDAStart: 46-51-3376YKTZBYVZE FUSELOX LUMBARFDAStart: 03-24-2017 [place] One Level DeformityFDAStart: 84-09-8328CKEBQZMWJD 15CC CRUSHEDFDAStart: 40-73-9166AQQUYFKSR CAPLOX II MED/LGFDAStart: 12-47-8784UIZRAGFZ LOCK SCREWSFDA Start: 72-11-0895MOBMLOZS LOCK SCREWSFDAStart: 58-81-6891IMRYHHQA LOCK SCREWSFDA Start: 34-78-1954AIDNMVDE LOCK SCREWSFDAStart: 90-80-7346RPJVQTHRY FUSELOX LUMBARFDAStart: 40-88-8924XKCEHIZB RELINE SCREWFDAStart: 65-11-5107YIWACYRR RELINE SCREWFDAStart: 25-99-5156XQENJZHB RELINE SCREWFDAStart: 03-24-2017 NUVASIVE RELINE SCREWFDAStart: 34-87-2608CBEUMKRQ RODFDAStart: 03-24-2017 NUVASIVE RODFDAStart: 03-28-8175YLCTFVXG GRANULES 10CCFDAStart: 03-24-2017 ALLOGRAFT FUSELOX LUMBARFDAStart: 87-51-5633[place] One Level DeformityFDAStart: 84-66-3162HITCAMNFGM 15CC CRUSHEDFDAStart: 80-23-4384ZFUYNVGOF CAPLOX II MED/LG FDAStart: 59-75-0931SUBAXOYS LOCK SCREWSFDAStart: 30-92-8687EBOUJHSF LOCK SCREWS FDAStart: 58-74-1374REWQOCHL LOCK SCREWSFDAStart: 36-81-7769YHLEVUVD LOCK SCREWS FDAStart: 72-21-4519DSWRPDCVQ FUSELOX LUMBARFDAStart: 18-91-9810FUGHWILR RELINE SCREWFDAStart: 43-00-2155NGGQHYUL RELINE SCREWFDAStart: 07-25-2736OWDNTXFR RELINE SCREWFDAStart: 38-10-4993FMSBTTNN RELINE SCREWFDAStart: 03-24-2017 NUVASIVE RODFDAStart: 47-50-6566RRYBPUGK RODFDAStart: 20-67-0555OGDGNVCZ GRANULES 10CCFDAStart: 81-83-8801DKFJQNEKD FUSELOX LUMBARFDAStart: 03-24-2017 [place] One Level DeformityFDAStart: 72-71-5600FMJXMQRQSD 15CC CRUSHEDFDAStart: 08-64-2518YVPWQVKEJ CAPLOX II MED/LGFDAStart: 50-85-0847LWVYKOCL LOCK SCREWSFDA Start: 22-65-0008LPAMSAHT LOCK SCREWSFDAStart: 62-21-6940XVFLWXEQ LOCK SCREWSFDA Start: 05-47-5777LKMIRKWD LOCK SCREWSFDAStart: 79-29-6282QDVMVEQHE FUSELOX LUMBARFDAStart: 88-12-7429OKMVKWMO RELINE SCREWFDAStart: 30-97-2335RWKRMHBN RELINE SCREWFDAStart: 87-17-9390VHRNAMYG RELINE SCREWFDAStart: 03-24-2017 NUVASIVE RELINE SCREWFDAStart: 53-08-4708VGMUKGAZ RODFDAStart: 03-24-2017 NUVASIVE RODFDAStart: 49-28-0051YEWVWOEV GRANULES 10CCFDAStart: 03-24-2017 ALLOGRAFT FUSELOX LUMBARFDAStart: 41-15-4514K[place]zyu One Level DeformityFDAStart: 98-34-2308PNOMCRGKWW 15CC CRUSHEDFDAStart: 94-71-8241ZSVSZNQSN CAPLOX II MED/LG FDAStart: 31-70-4995KVBNAXEB LOCK SCREWSFDAStart: 76-29-9537BCUKPCZN LOCK SCREWS FDAStart: 89-03-7739OATEFSUT LOCK SCREWSFDAStart: 92-53-5079JCISKMRV LOCK SCREWS FDAStart: 54-88-0434RPCSSZGNI FUSELOX LUMBARFDAStart: 86-47-1142HOJDRTEH RELINE SCREWFDAStart: 00-09-7974VLFLUIEC RELINE SCREWFDAStart: 13-93-4735WFHQYNOU RELINE SCREWFDAStart: 48-76-4697JARVJREM RELINE SCREWFDAStart: 03-24-2017 NUVASIVE RODFDAStart: 71-62-7669EJRJRFNV RODFDAStart: 79-11-3843EFYCJKNL GRANULES 10CCFDAStart: 17-80-3048ZKAQJSGJU FUSELOX LUMBARFDAStart: 03-24-2017 [place] One Level DeformityFDAStart: 54-24-0186QTVFKTOIEY 15CC CRUSHEDFDAStart: 83-60-1411TUNASKFAX CAPLOX II MED/LGFDAStart: 86-87-1098PFSJJXES LOCK SCREWSFDA Start: 31-50-0695IWVEVTJH LOCK SCREWSFDAStart: 16-31-9668RYXWVMTC LOCK SCREWSFDA Start: 38-72-8205GTVBMECK LOCK SCREWSFDAStart: 23-10-7401FZMICPCJJ FUSELOX LUMBARFDAStart: 92-42-4285SACWMWUF RELINE SCREWFDAStart: 25-79-4864EOZBHQJG RELINE SCREWFDAStart: 32-82-7690QXFCJORL RELINE SCREWFDAStart: 03-24-2017 NUVASIVE RELINE SCREWFDAStart: 18-13-4143CZIKRMMI RODFDAStart: 03-24-2017 NUVASIVE RODFDAStart: 27-86-0388SJYHFIET GRANULES 10CCFDAStart: 03-24-2017 ALLOGRAFT FUSELOX LUMBARFDAStart: 22-15-7691Hqfirp One Level DeformityFDAStart: 92-43-9484ZRWOYCJXWC 15CC CRUSHEDFDAStart: 47-74-4255CFXROFXAN CAPLOX II MED/LG FDAStart: 08-02-9930TDTEDAOE LOCK SCREWSFDAStart: 41-34-6783NIDJPTXY LOCK SCREWS FDAStart: 23-89-7374NRUPWAWT LOCK SCREWSFDAStart: 22-84-5889EABEDGEY LOCK SCREWS FDAStart: 61-72-2538AVUVILTTA FUSELOX LUMBARFDAStart: 36-31-9919CPUBBORW RELINE SCREWFDAStart: 38-92-1338XAEGGCGW RELINE SCREWFDAStart: 89-99-1656TRQSCAXN RELINE SCREWFDAStart: 28-58-6708HBOVYBBL RELINE SCREWFDAStart: 03-24-2017 NUVASIVE RODFDAStart: 14-20-3613WOAUVMGT RODFDAStart: 03-62-0799BRCJBSMG GRANULES 10CCFDAStart: 10-96-2139ZBREBLLOE FUSELOX LUMBARFDAStart: 03-24-2017 [place] One Level DeformityFDAStart: 08-00-5700IJOQXNLNMT 15CC CRUSHEDFDAStart: 50-40-7591IQSQOMCPO CAPLOX II MED/LGFDAStart: 08-77-7069MOJXVMGY LOCK SCREWSFDA Start: 63-04-6409SOYVGBEG LOCK SCREWSFDAStart: 53-93-7394LZNPUHXW LOCK SCREWSFDA Start: 35-53-1424QXHFWCVH LOCK SCREWSFDAStart: 70-12-2643RCZWJQGKX FUSELOX LUMBARFDAStart: 08-10-4027MKMUHPNS RELINE SCREWFDAStart: 38-23-7319CXIKAAQR RELINE SCREWFDAStart: 56-74-6101ZPORDTXA RELINE SCREWFDAStart: 03-24-2017 NUVASIVE RELINE SCREWFDAStart: 28-17-4392XRBZFDYA RODFDAStart: 03-24-2017 NUVASIVE RODFDAStart: 90-58-5392CGUIHGHZ GRANULES 10CCFDAStart: 03-24-2017 ALLOGRAFT FUSELOX LUMBARFDAStart: 97-52-7232Efackk One Level DeformityFDAStart: 18-37-3940KAADWRSIMQ 15CC CRUSHEDFDAStart: 46-52-3518HKUWGXAAZ CAPLOX II MED/LG FDAStart: 87-04-6163ZUYZGUCE LOCK SCREWSFDAStart: 91-41-3643RLOPDQOL LOCK SCREWS FDAStart: 45-25-6237SFUNITHV LOCK SCREWSFDAStart: 75-62-8968NKAVEDFL LOCK SCREWS FDAStart: 60-61-0784FPRTICQPV FUSELOX LUMBARFDAStart: 24-86-8846JRHUIGER RELINE SCREWFDAStart: 53-26-0043QUQBSMWV RELINE SCREWFDAStart: 15-75-5861KXBGMXNU RELINE SCREWFDAStart: 61-78-3879SGMQCMGT RELINE SCREWFDAStart: 03-24-2017 NUVASIVE RODFDAStart: 23-09-8273YIYVZRYS RODFDAStart: 68-18-7071VUNPXINS GRANULES 10CCFDAStart: 53-49-0380FVKQIAIBY FUSELOX LUMBARFDAStart: 03-24-2017 [place] One Level DeformityFDAStart: 28-42-2590CMURMNCYOX 15CC CRUSHEDFDAStart: 57-45-4155UBJENPKXV CAPLOX II MED/LGFDAStart: 04-11-9085BOESNEQO LOCK SCREWSFDA Start: 42-21-0152ONCSKYII LOCK SCREWSFDAStart: 69-01-7687FDTQWUFA LOCK SCREWSFDA Start: 39-41-0864PLPMPMHH LOCK SCREWSFDAStart: 90-01-9826ABXOEJKHM FUSELOX LUMBARFDAStart: 04-29-6036HCJSWLUN RELINE SCREWFDAStart: 88-85-3763GTHUWXRU RELINE SCREWFDAStart: 59-97-8209IFLKVOFL RELINE SCREWFDAStart: 03-24-2017 NUVASIVE RELINE SCREWFDAStart: 74-33-1890FRCTLGYZ RODFDAStart: 03-24-2017 NUVASIVE RODFDAStart: 63-98-6981AJWASBNB GRANULES 10CCFDAStart: 03-24-2017 ALLOGRAFT FUSELOX LUMBARFDAStart: 57-78-9525Gxfiry One Level DeformityFDAStart: 77-00-3082OCBTXUGEWL 15CC CRUSHEDFDAStart: 85-18-7888VHRLINLIP CAPLOX II MED/LG FDAStart: 48-08-3020OBRMUEND LOCK SCREWSFDAStart: 53-88-9719NHRSZWRA LOCK SCREWS FDAStart: 07-06-1505CWCWMAKD LOCK SCREWSFDAStart: 04-29-8776NHFGVWCW LOCK SCREWS FDAStart: 03-88-4127WEKIEGKMU FUSELOX LUMBARFDAStart: 47-84-7045OWNRPBOF RELINE SCREWFDAStart: 17-69-9177MXBHUVNP RELINE SCREWFDAStart: 21-50-7155LAERXXFL RELINE SCREWFDAStart: 74-85-7246WCGTLGML RELINE SCREWFDAStart: 03-24-2017 NUVASIVE RODFDAStart: 27-99-7212ULTGHROG RODFDAStart: 32-61-1439WBEPHUTC GRANULES 10CCFDAStart: 56-06-7876EVOSDDONJ FUSELOX LUMBARFDAStart: 03-24-2017 [place] One Level DeformityFDAStart: 07-51-1796CHYAFBQHAR 15CC CRUSHEDFDAStart: 93-93-0624STGFQCOSP CAPLOX II MED/LGFDAStart: 19-02-7241FDYTKFST LOCK SCREWSFDA Start: 82-99-4046ADLBYXKW LOCK SCREWSFDAStart: 45-65-2280WIMDJJMU LOCK SCREWSFDA Start: 06-21-7196DMDBCKFO LOCK SCREWSFDAStart: 86-27-8666OSCYIMTXO FUSELOX LUMBARFDAStart: 76-39-2270FJFKFVKK RELINE SCREWFDAStart: 92-72-9114PYFVGLIA RELINE SCREWFDAStart: 41-76-2736NNLACEJV RELINE SCREWFDAStart: 03-24-2017 NUVASIVE RELINE SCREWFDAStart: 98-52-1325WJUMZNTE RODFDAStart: 03-24-2017 NUVASIVE RODFDAStart: 84-88-4788XIXLYNUX GRANULES 10CCFDAStart: 03-24-2017 ALLOGRAFT FUSELOX LUMBARFDAStart: 19-61-5548Ycosnt One Level DeformityFDAStart: 00-02-3132MPUAQTRNGC 15CC CRUSHEDFDAStart: 10-62-1714BTMSCIXIE CAPLOX II MED/LG FDAStart: 47-62-7956VDELOCED LOCK SCREWSFDAStart: 69-84-4040ZOKUMOFO LOCK SCREWS FDAStart: 83-44-2497IHHVRROO LOCK SCREWSFDAStart: 96-66-9618KZDZKKJD LOCK SCREWS FDAStart: 42-65-4628AWJENOBEW FUSELOX LUMBARFDAStart: 22-50-2629OBTLGTRR RELINE SCREWFDAStart: 23-15-6061RAMSFNRG RELINE SCREWFDAStart: 10-31-6419YYBYPWRX RELINE SCREWFDAStart: 19-87-5711VSADHWZI RELINE SCREWFDAStart: 03-24-2017 NUVASIVE RODFDAStart: 69-75-6111EKZUXWTR RODFDAStart: 22-07-9511EWPZZVYL GRANULES 10CCFDAStart: 85-18-5444MISFCTFDZ FUSELOX LUMBARFDAStart: 03-24-2017 [place] One Level DeformityFDAStart: 16-14-2238LEMNFLUNML 15CC CRUSHEDFDAStart: 06-93-7805DUCPLHOTU CAPLOX II MED/LGFDAStart: 41-96-7234GRNCRYMS LOCK SCREWSFDA Start: 03-48-7798MGAAYMXD LOCK SCREWSFDAStart: 33-45-6218LNGDXLUA LOCK SCREWSFDA Start: 23-16-6312WUTTRSIW LOCK SCREWSFDAStart: 61-30-6421MOSVBKEHL FUSELOX LUMBARFDAStart: 81-12-7111SLXBBUQR RELINE SCREWFDAStart: 03-52-5743YWPLOHDX RELINE SCREWFDAStart: 81-64-1822LFKFXRAU RELINE SCREWFDAStart: 03-24-2017 NUVASIVE RELINE SCREWFDAStart: 10-20-6758IRZPHDOL RODFDAStart: 03-24-2017 NUVASIVE RODFDAStart: 52-69-8232YPOHDVMA GRANULES 10CCFDAStart: 03-24-2017 ALLOGRAFT FUSELOX LUMBARFDAStart: 64-70-0948Rmktnt One Level DeformityFDAStart: 18-78-8414IOHHDYRFRC 15CC CRUSHEDFDAStart: 21-82-8390FLAVYJSWY CAPLOX II MED/LG FDAStart: 30-86-8593QNEANBRA LOCK SCREWSFDAStart: 84-40-6610NMBTBANF LOCK SCREWS FDAStart: 70-99-6051XXPCAALV LOCK SCREWSFDAStart: 28-10-9486WRPCUBDW LOCK SCREWS FDAStart: 03-10-4422SODSFEWMW FUSELOX LUMBARFDAStart: 47-54-2528TEMXSVJF RELINE SCREWFDAStart: 37-91-5558GLLDAARJ RELINE SCREWFDAStart: 31-60-6923VWSOVIWQ RELINE SCREWFDAStart: 19-34-6906JUCZQVBQ RELINE SCREWFDAStart: 03-24-2017 NUVASIVE RODFDAStart: 21-05-6083EWKVETYN RODFDAStart: 27-26-7201MLPKVQYF GRANULES 10CCFDAStart: 16-75-0117WOAVDYRFV FUSELOX LUMBARFDAStart: 03-24-2017 [place] One Level DeformityFDAStart: 51-15-1274EQWFIBUDEQ 15CC CRUSHEDFDAStart: 23-39-6258PPWSHDADL CAPLOX II MED/LGFDAStart: 81-52-9908AGFJPYWZ LOCK SCREWSFDA Start: 81-68-2799KOGCLQLM LOCK SCREWSFDAStart: 38-10-0608ZJQKALJQ LOCK SCREWSFDA Start: 93-28-6201OWBDEAKB LOCK SCREWSFDAStart: 65-87-3058OEXHMZRMA FUSELOX LUMBARFDAStart: 37-63-1122FXFLFZCO RELINE SCREWFDAStart: 86-16-9704MSJAVQNY RELINE SCREWFDAStart: 15-07-4517ATOWRYUP RELINE SCREWFDAStart: 03-24-2017 NUVASIVE RELINE SCREWFDAStart: 77-83-3984LVZXOPMI RODFDAStart: 03-24-2017 NUVASIVE RODFDAStart: 53-12-5803EGDSCJJI GRANULES 10CCFDAStart: 03-24-2017 ALLOGRAFT FUSELOX LUMBARFDAStart: 85-85-1596Muxwld One Level DeformityFDAStart: 94-69-4866KTQXQGXBVG 15CC CRUSHEDFDAStart: 36-14-4947BJXPEPIWC CAPLOX II MED/LG FDAStart: 23-44-5340WGPDGLFB LOCK SCREWSFDAStart: 28-90-2122WNNXJOAU LOCK SCREWS FDAStart: 38-94-9317DWDFUKGH LOCK SCREWSFDAStart: 60-79-7475ELWIVRGR LOCK SCREWS FDAStart: 29-88-5370ZTGOBSWZN FUSELOX LUMBARFDAStart: 36-58-4456UDCEFGVY RELINE SCREWFDAStart: 19-25-9381FOXVUVJW RELINE SCREWFDAStart: 83-91-5607BKERHYJH RELINE SCREWFDAStart: 80-05-5845FBVUBFBA RELINE SCREWFDAStart: 03-24-2017 NUVASIVE RODFDAStart: 51-24-4024XZVCCCPF RODFDAStart: 55-00-5424OTCIBXGI GRANULES 10CCFDAStart: 97-01-6082ZYLTJXNJF FUSELOX LUMBARFDAStart: 03-24-2017 [place] One Level DeformityFDAStart: 64-12-1735AXBHUNZGGB 15CC CRUSHEDFDAStart: 98-03-7941ERPPBNWON CAPLOX II MED/LGFDAStart: 40-46-4880JYXQLRYB LOCK SCREWSFDA Start: 16-43-2952VQXMLJEW LOCK SCREWSFDAStart: 26-04-2034RTJEEUME LOCK SCREWSFDA Start: 42-36-5676CBBIBTIP LOCK SCREWSFDAStart: 78-09-3205RUBHBQCAG FUSELOX LUMBARFDAStart: 85-77-6351UTZPWRTX RELINE SCREWFDAStart: 54-53-9369ENJKNYGN RELINE SCREWFDAStart: 34-72-9841OYPLRSQF RELINE SCREWFDAStart: 03-24-2017 NUVASIVE RELINE SCREWFDAStart: 37-77-5438NESPILLT RODFDAStart: 03-24-2017 NUVASIVE RODFDAStart: 76-47-7419YPUNNNPW GRANULES 10CCFDAStart: 03-24-2017 ALLOGRAFT FUSELOX LUMBARFDAStart: 67-69-3390Brhfal One Level DeformityFDAStart: 41-13-6197XABQGOMDNS 15CC CRUSHEDFDAStart: 52-26-1491WLXDHLYHW CAPLOX II MED/LG FDAStart: 64-46-5937DIUUBHCH LOCK SCREWSFDAStart: 15-77-6991YDCFFBIW LOCK SCREWS FDAStart: 12-16-0115ZENUBFWD LOCK SCREWSFDAStart: 44-28-1141FQLISMNC LOCK SCREWS FDAStart: 36-20-7795LDSJLHAFZ FUSELOX LUMBARFDAStart: 05-59-6226WWFNRAYS RELINE SCREWFDAStart: 63-63-7183MDNYLUPB RELINE SCREWFDAStart: 01-80-4580GQCWSKPB RELINE SCREWFDAStart: 31-88-4469VEFMJUYH RELINE SCREWFDAStart: 03-24-2017 NUVASIVE RODFDAStart: 68-96-1293UEGAALDY RODFDAStart: 77-14-6967CAPMYKYO GRANULES 10CCFDAStart: 55-03-6124CIABOWVRP FUSELOX LUMBARFDAStart: 03-24-2017 [place] One Level DeformityFDAStart: 69-49-8066LURVXQEKEI 15CC CRUSHEDFDAStart: 28-04-4391KXTNNLDCV CAPLOX II MED/LGFDAStart: 65-51-3940IQQRZUIE LOCK SCREWSFDA Start: 23-48-6763XMGFTKDL LOCK SCREWSFDAStart: 95-66-2428QATJSNQS LOCK SCREWSFDA Start: 01-74-3134NTKXODWQ LOCK SCREWSFDAStart: 60-14-2145EJLXEQZII FUSELOX LUMBARFDAStart: 50-39-9415RDDRVQLN RELINE SCREWFDAStart: 64-80-3114JPBKISDC RELINE SCREWFDAStart: 37-41-1883NAJNCTUJ RELINE SCREWFDAStart: 03-24-2017 NUVASIVE RELINE SCREWFDAStart: 00-91-9184UMALYKWB RODFDAStart: 03-24-2017 NUVASIVE RODFDAStart: 14-88-1863UEIJNSOW GRANULES 10CCFDAStart: 03-24-2017 ALLOGRAFT FUSELOX LUMBARFDAStart: 35-73-9225[place] One Level DeformityFDAStart: 02-54-6434XTXDVHSZEG 15CC CRUSHEDFDAStart: 65-92-4622IYTKBOXWH CAPLOX II MED/LG FDAStart: 18-48-1932OWBLHFJQ LOCK SCREWSFDAStart: 81-18-9381IRAOZLID LOCK SCREWS FDAStart: 59-74-0653DSYOATLS LOCK SCREWSFDAStart: 62-55-8488XBYENXWS LOCK SCREWS FDAStart: 57-56-1171KXZQMKCUT FUSELOX LUMBARFDAStart: 19-11-7687ZZIPFSAP RELINE SCREWFDAStart: 27-32-5736TDIFXJDS RELINE SCREWFDAStart: 66-21-3582YKFVBLRO RELINE SCREWFDAStart: 58-61-4508NWOCXPLH RELINE SCREWFDAStart: 03-24-2017 NUVASIVE RODFDAStart: 25-44-0225JWUGHGZN RODFDAStart: 61-54-4501IJGLQOGB GRANULES 10CCFDAStart: 45-14-6455BDBXIQWKW FUSELOX LUMBARFDAStart: 03-24-2017 [place] One Level DeformityFDAStart: 51-37-6478ISZSPDIBZE 15CC CRUSHEDFDAStart: 18-27-6024VYWNKEMTA CAPLOX II MED/LGFDAStart: 47-18-0777EOYZUKMP LOCK SCREWSFDA Start: 87-58-0059QPVUAKLY LOCK SCREWSFDAStart: 09-88-2424DZCYFXAL LOCK SCREWSFDA Start: 12-21-1197HFBXUUGS LOCK SCREWSFDAStart: 03-24-2017 Goals DatePatient GoalDesired Activity/State Functional Status LkxnUaiefmkxliSnjudaIqzfygei90-20-2184Brcvubufus StatusN/A[facility]Functional StatusN/A[facility]-01-2023Functional StatusN/A [facility]07-16-2022Functional statusPatient is Progressing Toward [facility] Work Phone: Mental Status SszhBgxwcuaqcmXxznpyMjzzkcxu02-45-8072Abxaumqnm functionCognitive Status Patient at [facility] Work Phone: Clinical Notes 04-04-2021 to 05-18-2025 Note Date & TfshGxxgCnzwwuue65-60-2336 Evaluation note* Author Ayanna Vicente [facility] 20[facility] 3:27pmThe above note written by ___Melanie Conde____ acting as human recorder, note dictated by Dr. Slater .I performed the above HPI, ROS, and Examination. I formulated and dictated the treatment plan and was present for entire encounter. Ayanna Vicente D.O. Author Ayanna Vicente [facility] 2024 11:41amThe above note written by ___Melanie Conde____ acting as human recorder, note dictated by Dr. Slater .I performed the above HPI, ROS, and Examination. I formulated and dictated the treatment plan and was present for entire encounter. Ayanna Vicente D.O. [facility] Work Phone: [phone] Evaluation note* Author [facility] 2024 11:41amThe above note written by ___Melanie Conde____ acting as human recorder, note dictated by Dr. Slater .I performed the above HPI, ROS, and Examination. I formulated and dictated the treatment plan and was present for entire encounter. Ayanna Vicente D.O. [facility] Work Phone: 1(511) 185-939010-06-2025 History of Present illness Narrative* PALMA Singletary [...] limited to risks of scarring, darker or dietetic technician registered pigmentary changes, recurrence, incomplete removal and infection. [...] for any new/changing lesions documented in this encounterOzarks Community HospitalZcfzwqakus60-32-2619 Evaluation note* [facility] 20[facility] 4:31pmThe above note written by ___Melanie Conde____ acting as human recorder, note dictated by Dr. Slater .I performed the above HPI, ROS, and Examination. I formulated and dictated the treatment plan and was present for entire encounter. Ayanna Vicente D.O. [facility] Work Phone: 1(518) 991-783707-29-2025 Hospital Discharge instructions Patient Education 02/08/2025 09:23:28 [...] your health care provider. General instructions Take txfp-fdc-togrgrl and prescription medicines only as told by [...] provider. Document Revised: 03/19/2021 Document Reviewed: 03/19/2021 [employer] Patient Education 2023 [employer]. Follow Up Care 08/16/2024 09:56:41 With:Follow up in Spring Address:Unknown When: Unknown [facility] [facility] 07-29-2025 NotePatient Education Obstetrics and Gynecology Overactive [...] health care provider. General instructions ??? Take hfht-jfa-kovtlue and prescription medicines only as told by [...] you drink, and whe (more content not included)...[facility] [place]07-09-2025 Telephone encounter Note* Telephone Encounter - Moe [...] to her medications. I'll see her PRN. [facility] [id number] Miscellaneous Notes* Telephone Encounter - Moe Betts [...] I'll see her PRN. documented in this encounterOzarks Community HospitalTjuzcodyvc65-63-1096 History of Present illness Narrative* Moe Betts DO - 01/12/2025 1:30 PM EDT Images from the original note were not included. Katyh Washburn 1940 Kathy Washburn is a 84 [...] urethra 3x per week for UTI prevention, [facility], 178, cm, 08/16/24 9:10:00 EST, Height/Length [...] replacement OTHER SURGICAL HISTORY 1999 fissure repair DE REPAIR SLIDING INGUINAL HERNIA Hernia, inguinal TOTAL [...] colonoscopy have been made. documented in this encounterOzarks Community HospitalWtjrlvgopl96-08-7005 History of Present illness Narrative* Zohaib German MD - 12/17/2024 10:27 AM EDT Images from the original note were not included. Rheumatology Outpatient Clinic Date of Service: 12/17/2024 Patient: Kathy Washburn Medical Record: [id number] Primary Care Physician: Ayanna Vicente DO Last [...] status and 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 There have not been any new health [...] Reviewed on 05/26/2024 Name Date COVID-19 vaccine ([employer]) 03/19/2024, 06/23/2023 COVID-19 vaccine, bivalent ([employer]) 04/18/2022 COVID-19 vaccine, monovalent ([employer]) 06/01/2021, 09/01/2020, 08/11/2020 Physical Exam GENERAL APPEARANCE: [...] which included preparing to see the patient, wpma-os-kqzv patient care, completing clinical documentation, obtaining and/or [...] 2024 Time: 10:27 AM documented in this encounterTrihealth06-06-2025 NoteHNO ID: [id number] Author: ZOHAIB GERMAN MD Service: ? Author Type: Physician Type: Progress Notes Filed: 12/17/2024 10:49 Note Text: Rheumatology Outpatient Clinic Date of Service: 12/17/2024 Patient: Kathy Washburn Medical Record: [id number] Primary Care Physician: Ayanna Vicente DO Last [...] status and 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 There have not been any new health [...] Family History FAMILY HISTORY (more content not included)...[facility] 12-16-2024 Evaluation note* Diagnosis Onset Date Resolution Status Admit Date Chronic kidney disease, stage 3b acuteJune 2024 2:13pmHyperkalemiaacuteJun2024 2:13pmHypertensive chronic 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 4 chronic kiacuteJune 2024 2:13pmType 2 diabetes mellitus with diabetic chronic kidney diseaseacute December 16, 2024 2:13pmHLD (hyperlipidemia)chronicJune 2024 2:13pmVitamin D deficiencychronicJun2024 2:13pmChronic kidney disease, stage 3bacuteJuly 2024 1:47pmHyperkalemiaacuteJuly 2024 1:47pmHypertensive chronic 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 4 chronic kiacuteJuly 2024 1:47pmType 2 diabetes mellitus with diabetic chronic kidney diseaseacuteJuly 2024 1:47pmHLD (hyperlipidemia)chronicJuly 2024 1:47pmVitamin D deficiencychronicJuly 2024 1:47pmHydradenitisacuteAugust 2024 2:43pm Lumbar degenerative disc diseaseacuteAugust 2024 2:43pmNeuropathyacute February 15, 2025 2:43pmOveractive bladderacuteAugust 2024 2:43pmDiabetes chronicAugust 2024 2:43pm [facility] Work Phone: 1(921) 680-540405-07-2025 Telephone encounter Note* Telephone Encounter - Susan Caballero - 11/17/2024 2:35 PM EDT Records faxed to Dr. Silva [phone]. I called Roxie to let her know they were faxed. [facility]05-07-2025 Miscellaneous Notes* Telephone Encounter - Susan Caballero - 11/17/2024 2:35 PM EDT Records faxed to Dr. Silva [phone]. I called Roxie to let her know they were faxed. * Telephone Encounter - Lori Renner - 11/17/2024 11:[address] Zena DREW Received a call from patient caregiver Roxie Leola. She stated that patient would like to cancel her upcoming appointment with Dr Paredes on 11/24 due to patient is going to be following with Dr Silva @ [facility] as this is closer to home for patient. Roxie requested to talk to medical records regarding having records sent to Dr Silva transferred call To Heather Todd. Lori Callahan documented in this encounterTrihealth05-07-2025 Telephone encounter Note * Telephone Encounter - Lori Renner - 11/17/2024 11:[address] Zena DREW Received a call from patient caregiver Roxie Bhagat. She stated that patient would like to cancel her upcoming appointment with Dr Paredes on 11/24 due to patient is going to be following with Dr Silva @ [facility] as this is closer to home for patient. Roxie requested to talk to medical records regarding having records sent to Dr Silva transferred call To Heather Todd. Lori Callahan [facility]04-30-2025 Evaluation note* Author Ayanna Vicente [facility] HospitalAuthoredApril 2024 4:51pmThe above note written by ___Melanie Conde____ acting as human recorder, note dictated by Dr. Slater .I performed the above HPI, ROS, and Examination. I formulated and dictated the treatment plan and was present for entire encounter. Ayanna Vicente D.O. [facility] Work Phone: 1(962) 773-188704-30-2025 Hospital Discharge instructionsAmbulatory Orders* Referral to Hematology Time Frame: 11/10/24, Location: None Selected * Referral to Nephrology Time Frame: 11/10/24, Location: None Selected [facility] Work Phone: 1(674) 898-792502-03-2025 Hospital Discharge instructions Patient Education 08/16/2024 10:04:56 [...] provider. Document Revised: 01/28/2023 Document Reviewed: 01/28/2023 [employer] Patient Education 2023 [employer]. Follow Up Care 08/11/2024 14:41:18 With:JAX BECKMAN, SUSAN Miller, URL Address: [address] [place] [address] When:Within 6 Month(s) [facility] 02-03-2025 NotePatient Education Caregiving Antibiotic Medicine, [...] ??? You have sig (more content not included)...[facility] [place] 08-11-2024 Evaluation note* Author Ayanna Vicente [facility] HospitalAuthoredJanuary 2024 1:46pmThe above note written by ___Melanie Conde____ acting as human recorder, note dictated by Dr. Slater .I performed the above HPI, ROS, and Examination. I formulated and dictated the treatment plan and was present for entire encounter. Ayanna Vicente D.O. [facility] Work Phone: 1(830) 928-219601-27-2025 History of Present illness Narrative* Esvin Dubon [...] replacement OTHER SURGICAL HISTORY 1999 fissure repair DE REPAIR SLIDING INGUINAL HERNIA Hernia, inguinal TOTAL [...] oriented to person, place and time. Previous [place] cognitive assessment: 29/30 Language is fluent without aphasia. Attention and [...] , wrist extensors , wrist flexor , production pattern maker strength 5/5. LUE Strength deltoid , biceps , triceps , wrist extensors , wrist flexor , production pattern maker strength 5/5. RLE Strength illopsoas, quadriceps, tibialis [...] knee reflex 0. Hdz's sign negative. Coordination: Pfqhfs-pq-llhd testing is normal Rapid alternating movements are [...] on 06/22/2024: TSH 2.632 (wnl), B12 721 [place] cognitive assessment at [facility] on 06/17/2024: MRI of the brain at [facility] on 07/04/18: Mild age-related changes and [...] of mental health issues documented in this encounterOzarks Community HospitalVwwlamyehs09-06-6961 History of Present illness Narrative* Enrique Hammonds, [...] No history of alcohol/substance abuse. Reformed smoker. [place] language Romanian. Completed a master's degree. 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 and currently lives alone. Because of one [...] PRN incontinence, #90 tab(s), Refills(s) 3, Pharmacy: [facility], 178, cm, 02/11/23 11:43:00 EDT, Height/Length [...] of this individual. Please contact me with [employer] at [phone]. documented in this encounterOzarks Community HospitalAjfieejyks32-16-9964 History of Present illness Narrative* Moe Betts, [...] replacement OTHER SURGICAL HISTORY 1999 fissure repair DE REPAIR SLIDING INGUINAL HERNIA Hernia, inguinal TOTAL [...] to have the scope. documented in this encounterOzarks Community HospitalPvkstchikk82-91-6323 History of Present illness Narrative* Babita Guillaume DO - 06/17/2024 2:00 PM EST Images from the original note were not included. Chief Complaint: memory impairment Subjective Ktahy Washburn, 83 y.o., female Patient presents today [...] replacement OTHER SURGICAL HISTORY 1999 fissure repair DE REPAIR SLIDING INGUINAL HERNIA Hernia, inguinal TOTAL [...] , wrist extensors , wrist flexor , production pattern maker strength 5/5. LUE Strength deltoid , biceps , triceps , wrist extensors , wrist flexor , production pattern maker strength 5/5. RLE Strength illopsoas, quadriceps, tibialis [...] knee reflex 0. Hdz's sign negative. Coordination: Ufzgom-fb-advg testing and rapid alternating movements are normal Gait: Normal Review and summary of old records: [place] cognitive assessment at [facility] on 06/17/2024: Assessment/Plan Diagnoses and all [...] of mental health issues documented in this encounterOzarks Community HospitalLvfglirnha61-92-9360 NoteHNO ID: [id number] Author: YOUNG HERRERA LPN Service: ? Author Type: LICENSED NURSE Type: Progress Notes Filed: 06/08/2024 13:05 Note Text: Eye exam for Plaquenil toxicity received from [facility] . Exam date was 06/07/2024. Exam shows no signs of Plaquenil toxicity. Forms sent for scanning.[facility]11-26-2024 History of Present illness Narrative* Young Herrera LPN - 06/08/2024 1:05 PM EST Eye exam for Plaquenil toxicity received from [facility] . Exam date was 06/07/2024. Exam shows no signs of Plaquenil toxicity. Forms sent for scanning. documented in this encounterTrihealth11-13-2024 Instructions* Patient Instructions* Chad Freitas MD - 05/26/2024 2:09 PM EST Labs today F/u in 6 months documented in this encounterTrihealth11-13-2024 History of Present illness Narrative* Chad Freitas MD - 05/26/2024 2:00 PM EST Images from the original note were not included. PATIENT NAME: Kathy Washburn CLINIC NO.: [id number] ATTENDING PHYSICIAN: Chad Freitas MD DATE OF [...] Did mammogram last week at [facility]. 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 PAST MEDICAL HISTORY Diagnosis Date Depression Diabetes [...] Range Status 08/08/2023 2.0 % Final Abs Big Stone Date Value Ref Range Status 08/08/2023 0.39 [...] do not hesitate to contact me at [phone]. Chad Freitas MD Hematology/Medical Oncology [facility] [place] [facility] spent a total of 20 minutes on the date of the service which included preparing to see the patient, katb-uz-qlyq patient care, completing clinical documentation, obtaining and/or reviewing separately obtained history, counseling and educating the patient/family/caregiver, and ordering medications, tests, or procedures. CC: Ayanna Vicente DO documented in this encounterTrihealth11-13-2024 NoteHNO ID: [id number] Author: CHAD FREITAS MD Service: ? Author Type: Physician Type: Progress Notes Filed: 05/26/2024 14:41 Note Text: PATIENT NAME: Kathy Washburn CLINIC NO.: [id number] ATTENDING PHYSICIAN: Chad Freitas MD DATE OF [...] Did mammogram last week at [facility]. 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 PAST MEDICAL HISTORY Diagnosis Date Depression Diabetes [...] Date Value Ref Range (more content not included)...[facility] 05-17-2024 NoteHNO ID: [id number] Author: ZOHAIB GERMAN MD Service: ? Author Type: Physician Type: Progress Notes Filed: 05/17/2024 13:34 Note Text: Rheumatology Outpatient Clinic Date of Service: 05/17/2024 Patient: Kathy Washburn Medical Record: [id number] Primary Care Physician: Ayanna Vicente DO Last Rheumatology visit: None at [facility] Referring Provider: No referring provider defined for [...] unit/mL injection Inject subcutaneously (more content not included)...[facility]11-04-2024 History of Present illness Narrative* Zohaib German MD - 05/17/2024 12:56 PM EST Images from the original note were not included. Rheumatology Outpatient Clinic Date of Service: 05/17/2024 Patient: Kathy Washburn Medical Record: [id number] Primary Care Physician: Ayanna Vicente DO Last Rheumatology visit: None at [facility] Referring Provider: No referring provider defined for [...] Reviewed on 07/19/2022 Name Date COVID-19 vaccine ([employer]) 03/19/2024, 06/23/2023 COVID-19 vaccine, bivalent ([employer]) 04/18/2022 COVID-19 vaccine, monovalent ([employer]) 06/01/2021, 09/01/2020, 08/11/2020 Physical Exam GENERAL APPEARANCE: [...] with long-term current use of insulin([facility]) Plan Orders this visit: Office Visit on [...] which included preparing to see the patient, ylvp-ug-znix patient care, completing clinical documentation, obtaining and/or [...] 2024 Time: 12:56 PM documented in this encounterTrihealth10-29-2024 Hospital Discharge instructionsAmbulatory Orders* Referral to Neurology Time Frame: 05/11/24, Location: [facility] Work Phone: 1(589) 482-345308-26-2024 Evaluation note* Author Ayanna Vicente [facility] 2023 3:24pmThe above note written by ___Melanie Conde____ acting as human recorder, note dictated by Dr. Slater .I performed the above HPI, ROS, and Examination. I formulated and dictated the treatment plan and was present for entire encounter. Ayanna Vicente D.O. Author Ayanna Vicente [facility] 2023 9:11amThe above note written by ___Melanie Conde____ acting as human recorder, note dictated by Dr. Slater .I performed the above HPI, ROS, and Examination. I formulated and dictated the treatment plan and was present for entire encounter. Ayanna Vicente D.O. [facility] Work Phone: 1(497) 805-840908-26-2024 Evaluation note* Author Ayanna Vicente [facility] 2023 3:24pmThe above note written by ___Melanie Conde____ acting as human recorder, note dictated by Dr. Slater .I performed the above HPI, ROS, and Examination. I formulated and dictated the treatment plan and was present for entire encounter. Ayanna Vicente D.O. Author [facility]anna [facility] 2023 10:47amThe above note written by ___Melanie Conde____ acting as human recorder, note dictated by Dr. Slater .I performed the above HPI, ROS, and Examination. I formulated and dictated the treatment plan and was present for entire encounter. Ayanna Vicente D.O. [facility] Work Phone: 1(144) 522-224008-26-2024 Evaluation note* Author Ayanna [facility] 2023 3:24pmThe above note written by ___Melanie Conde____ acting as human recorder, note dictated by Dr. Slater .I performed the above HPI, ROS, and Examination. I formulated and dictated the treatment plan and was present for entire encounter. Ayanna Vicente D.O. Author Ayanna Vicente [facility] 2023 3:30pmThe above note written by ___Melanie Conde____ acting as human recorder, note dictated by Dr. Slater .I performed the above HPI, ROS, and Examination. I formulated and dictated the treatment plan and was present for entire encounter. Ayanna Vicente D.O. Author Ayanna Vicente [facility] 2023 10:47amThe above note written by ___Melanie Conde____ acting as human recorder, note dictated by Dr. Slater .I performed the above HPI, ROS, and Examination. I formulated and dictated the treatment plan and was present for entire encounter. Ayanna Vicente D.O. [facility] Work Phone: 1(186) 342-770308-26-2024 Evaluation note* Author Ayanna [facility] 2023 2:24pmThe above note written by ___Melanie Conde____ acting as human recorder, note dictated by Dr. Slater .I performed the above HPI, ROS, and Examination. I formulated and dictated the treatment plan and was present for entire encounter. Ayanna Vicente D.O. Author Ayanna Vicente [facility] HospitalAuthoredOctober 2023 2:30pmThe above note written by ___Melanie Conde____ acting as human recorder, note dictated by Dr. Slater .I performed the above HPI, ROS, and Examination. I formulated and dictated the treatment plan and was present for entire encounter. Ayanna Vicente D.O. Author Ayanna Vicente [facility] HospitalAuthost. [facility] centerSeptember 2023 9:47amThe above note written by ___Melanie Conde____ acting as human recorder, note dictated by Dr. Slater .I performed the above HPI, ROS, and Examination. I formulated and dictated the treatment plan and was present for entire encounter. Ayanna Vicente D.O. [facility] Work Phone: 1(332) 739-396108-13-2024 Hospital Discharge instructions Patient Education 02/24/2024 10:42:26 [...] your health care provider. General instructions Take bvjo-fzz-jrzadhy and prescription medicines only as told by [...] provider. Document Revised: 03/19/2021 Document Reviewed: 03/19/2021 [employer] Patient Education 2022 [employer]. Follow Up Care 02/11/2023 12:11:14 With:JAX BECKMAN, SUSAN Miller, URL Address: [address] [place] [address] [id number] When: Unknown Comments:6 mos (no labs) [facility] [place] 08-13-2024 NotePatient Education Obstetrics and Gynecology Overactive [...] health care provider. General instructions ? Take mpoa-sgl-arprtzt and prescription medicines only as told by [...] help your health care (more content not included)...[facility]07-25-2024 Evaluation note* Author Ayanna Vicente [facility] HospitalAuthoredJuly 2023 9:11amThe above note written by ___Melanie Conde____ acting as human recorder, note dictated by Dr. Slater .I performed the above HPI, ROS, and Examination. I formulated and dictated the treatment plan and was present for entire encounter. Ayanna Vicente D.O. [facility] Work Phone: 1(879) 526-540504-09-2024 Evaluation note* Author Ayanna Vicente [facility] HospitalAuthoredApril 2023 4:11pmThe above note written by ___Melanie Conde____ acting as human recorder, note dictated by Dr. Slater .I performed the above HPI, ROS, and Examination. I formulated and dictated the treatment plan and was present for entire encounter. Ayanna Vicente D.O. [facility] Work Phone: 1(444) 994-398302-15-2024 History of Present illness Narrative* Butch Luquenthal, DPM - 08/28/2023 1:45 PM EST Images [...] 150 Interested in diabetic shoes/inserts Dispensed Kandy [id number] in Purple, size 11 M on 04/11/22. [...] X-RAY:X-ray 2 views taken left heel on 3/17/18 revealed large posterior calcaneal exostosis. No other [...] open areas were noted. documented in this encounterOzarks Community HospitalSrvteudeio64-89-6740 Evaluation note* Encounter Date Diagnosis Assessment Notes [...] and sacroiliac steroidal injection.Refer the patient to [facility] for aqua therapy. Discuss with primary care physician, Dr. Vicente, about prescribing a steroid prednisone for temporary relief during the patient's cruise, in the event unable to see painmanagment before vacation. Order a lidocaine patch for the patient to useon the sacroiliac and hip area for pain relief.Recommend vioc-lfa-eoncljw Thermacare or heat patches to use alongside the lidocaine patch. 3. 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 Monitor the degeneration and consider a preventative approach. Encourage the patient to take Tylenol arthritis for overall help. 4. Bone density: - Plan: Dexa scan within normal limits. Jul,ain in left hip (ICD-10 - M25.552) Jul,Sacroiliac inflammation (ICD-10 - M46.1) Jul,ervical pain (ICD-10 - M54.2) Jul,DD (degenerative disc disease), lumbar (ICD-10 - M51.36) [employer] Other 01-03-2024 Evaluation note* Encounter Date Diagnosis [...] She will continue to monitor her memory. [employer] Other 10-03-2023 Evaluation note* Encounter Date Diagnosis [...] - C91.10)She continues to follow with Dr. Laers for evaluation every six months. Apr,Flu vaccine need (ICD-10 - Z23) Apr,ystitis (ICD-10 - N30.90)for lab order only Apr,OtherAll questions she has about immunizations were answered. [employer] Other 10-02-2023 Evaluation note* Encounter Date Diagnosis Assessment Notes Treatment Notes Treatment Clinical Notes Apr, Insomnia (ICD-10 - G47.00) Apr,Neuropathy (ICD-10 - G62.9) [employer] Other 08-15-2023 Evaluation note* Encounter Date Diagnosis [...] PT. Feb,Lumbar disc disease (ICD-10 - M51.9) [employer] Other 08-01-2023 Hospital Discharge instructions Patient Education [...] your health care provider. General instructions Take sxbl-ded-gfnruba and prescription medicines only as told by [...] provider. Document Revised: 03/19/2021 Document Reviewed: 03/19/2021 [employer] Patient Education 2022 [employer]. Follow Up Care 01/23/2023 15:26:59 With:SUSAN RANDOLPH PA-C, URL Address: [address] [place] [address] When: Unknown [facility] [place] 07-28-2023 History of Present illness Narrative* Santos Lares MD - 02/07/2023 1:38 PM EDT Images from the original note were not included. PATIENT NAME: Kathy Washburn CLINIC NO.: [id number] ATTENDING PHYSICIAN: Santos Lares MD DATE OF [...] Range Status 07/19/2022 5.0 % Final Abs Big Stone Date Value Ref Range Status 07/19/2022 0.84 [...] do not hesitate to contact me at [phone]. Santos Lares MD Hematology/Medical Oncology [facility] [place] [facility] spent a total of 30 minutes on the date of the service which included preparing to see the patient, hpqb-xe-zjgy patient care, completing clinical documentation, obtaining and/or reviewing separately obtained history, counseling and educating the patient/family/caregiver, and ordering medications, tests, or procedures. CC: Ayanna Vicente DO documented in this encounterTrihealth06-27-2023 Evaluation note* Encounter Date Diagnosis Assessment Notes [...] do this. Dec,Other1:43 PM - 1:59 PM [employer] Other 06-26-2023 Evaluation note* Encounter Date Diagnosis Assessment Notes Treatment Notes Treatment Clinical Notes Dec, Hyperlipidemia (ICD-10 - E78.5) [employer] Other 04-05-2023 Evaluation note* Encounter Date Diagnosis Assessment Notes Treatment Notes Treatment Clinical Notes Oct, Neuropathy (ICD-10 - G62.9) [employer] Other 03-22-2023 Evaluation note* Encounter Date Diagnosis Assessment Notes Treatment Notes Treatment Clinical Notes Sep, Insomnia (ICD-10 - G47.00) [employer] Other 03-22-2023 Evaluation note* Encounter Date Diagnosis [...] to see her blood sugars below 90. Seb[place]ing sugar readings are in the 120's. She [...] for her to have with her it director. Sep,Insomnia (ICD-10 - G47.00)We discussed the side [...] has not driven past any local towns ([facility]). She did have a cardiac work up [...] substance abuse treatments are being prescribed. Sep,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 coordinator (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 therapy (ICD-10 - Z79.899) Sep,ystitis (ICD-10 - N30.90)for lab order onlyCinthia would like to have Cipro on hand to use if she feels she is developing a urinary tract infection. She has an upcoming trip planned. She voices that Dr[facility] Redding retired [facility] She does need to [...] had an MRI of her neck done. [employer] Other [id number] Miscellaneous Notes* Telephone Encounter - Santos Lares MD - 07/22/2022 12:41 PM EST Thanks * Telephone Encounter - Lori Monzon [facility] - 07/22/2022 11:[address] Ly office to check on this referral spoke with [place]. She states they did receive this referral and when they called patient and offered her an appointment on 08/14 patient declined appointment and stated she would call her PCP. Lori Monzon [facility] [facility] I had already called [facility] office before [...] RN * Telephone Encounter - [facility] - 07/19/2022 2:21 PM EST Records faxed to Dr. Ly. * Telephone Encounter - Susana Grant - 07/19/2022 1:21 PM EST Referral to Dr. Ly for Right ear pain. Heather/Royer: Can you please send information and follow up? Manuel Romero put information in your mailbox forreferral. Thank you! Susana Grant documented in this encounterTrihealth01-06-2023 History of Present illness Narrative* Santos Lares MD - 07/19/2022 12:34 PM EST PATIENT NAME: Kathy Washburn CLINIC NO.: [id number] ATTENDING PHYSICIAN: Santos Lares MD DATE OF [...] 11.45 (H) 1.00 - 4.00 k/uL Final [place]% Date Value Ref Range Status 07/19/2022 5.0 % Final Abs [place] Date Value Ref Range Status 07/19/2022 0.84 [...] do not hesitate to contact me at [phone]. Santos Lares MD Hematology/Medical Oncology [facility] spent a total of 30 minutes on the date of the service which included preparing to see the patient, tbwp-el-yimw patient care, completing clinical documentation, obtaining and/or reviewing separately obtained history, counseling and educating the patient/family/caregiver, and ordering medications, tests, or procedures. Medical Decision Making: Medical Decision Making Level: 1 - N/A CC: Ayanna Vicente DO documented in this encounterTrihealth01-06-2023 Nurse Note* Lluvia Samuel MA - 07/19/2022 12:20 PM EST Patient would like to ask you about her right ear, it is painful to touch, her head also hurts and also has Left side pain. Lluvia Samuel MA documented in this encounterTrihealth11-18-2022 Evaluation note* Encounter Date Diagnosis Assessment Notes Treatment Notes Treatment Clinical Notes May, Cystitis (ICD-10 - N30.90) [employer] Other 10-11-2022 Evaluation note* Encounter Date Diagnosis Assessment Notes Treatment Notes Treatment Clinical Notes Apr, BMI 31.0-31.9,adult (ICD-10 - Z6 8.31) Chandler Akimbo Other 10-06-2022 History of Present illness Narrative* Santos Lares MD - 04/18/2022 11:59 AM EDT PATIENT NAME: Kathy Washburn CLINIC NO.: [id number] ATTENDING PHYSICIAN: Santos Lares MD DATE OF [...] 9.37 (H) 1.00 - 4.00 k/uL Final [place]% Date Value Ref Range Status 04/04/2022 5.0 % Final Abs [place] Date Value Ref Range Status 04/04/2022 0.67 [...] do not hesitate to contact me at [phone]. Santos Lares MD Hematology/Medical Oncology [facility] I spent a total of 30 minutes on the date of the service which included preparing to see the patient, lsxz-mc-pzma patient care, completing clinical documentation, obtaining and/or reviewing separately obtained history, counseling and educating the patient/family/caregiver, and ordering medications, tests, or procedures. Medical Decision Making: Medical Decision Making Level: 1 - N/A CC: Ayanna Vicente DO documented in this encounterTrihealth09-28-2022 Evaluation note* Encounter Date Diagnosis Assessment Notes Treatment Notes Treatment Clinical Notes Mar, Neuropathy (ICD-10 - G62.9) [employer] Other 09-23-2022 Miscellaneous Notes* Telephone Encounter - Santos Lares MD - 04/05/2022 5:06 PM EDT Spoke to the patient and answered her questions * Telephone Encounter - Niurka Hood RN - 04/05/2022 4:08 PM EDT Pt notified and verbalizes understanding. Pt would like to speak w/ you before her next appointment. Asks that you call her @ [phone] when you have time. Thanks! Niurka Hood [...] no one picked up documented in this encounterTrihealth09-22-2022 History of Present illness Narrative* Santos Lares MD - 04/04/2022 11:32 AM EDT PATIENT NAME: Kathy Washburn CLINIC NO.: [id number] ATTENDING PHYSICIAN: Santos Lares MD DATE OF [...] ago. Has a son who lives in [place]. She does not smoke nor drink heavily. [...] Santos Lares M.D. Hematology/Medical Oncology [facility] [phone] CC: Ayanna Vicente DO documented in this encounterTrihealth09-20-2022 Evaluation note* Encounter Date Diagnosis Assessment Notes [...] hurt. She has not followed with any exchange specialist. She saw Dr. Akins in the [...] would like to refer her to a forest fire equipment operator for evaluation, and she agrees. A [...] Continue with above medications daily as directed. 20 Sep, 2022Other abnormal blood chemistry (ICD-10 - R79.89) Mar,ther [...] if needed. She can also see a sign painter apprentice to discuss injections. She voices that she saw Dr. Guillaume in the past for migraines and would like to see Dr. Morales for evaluation. For now she will try to take the pain medication more often and see if this provides her with better relief and will continue to monitor. I will refer her to Dr. Morales for evaluation. Mar,ther intermission coordinator (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 therapy (ICD-10 - Z79.899) Mar,Encounter [...] to get this until seen by the forest fire equipment operator. She voices understanding. Mar,Encounter for screening colonoscopy [...] find out where Dr. Milner went in [place] and then will refer her back to Dr. Milner to discuss a colonoscopy. Mar,Weight loss (ICD-10 - R63.4)She has lost 1.5 pounds since last seen. [employer] Other 09-06-2022 Evaluation note* Encounter Date Diagnosis Assessment Notes Treatment Notes Treatment Clinical Notes Mar, Diabetes type 2, uncontrolled (I CD-10 - E11.65) Mar,Hypertension (ICD-10 - I10) Mar,Neuropathy (ICD-10 - G62.9) [employer] Other 08-26-2022 Evaluation note* Encounter Date Diagnosis Assessment Notes Treatment Notes Treatment Clinical Notes Feb, Diabetes type 2, uncontrolled (I CD-10 - E11.65) [employer] Other 07-27-2022 Evaluation note* Encounter Date Diagnosis Assessment Notes Treatment Notes Treatment Clinical Notes Jan, Cystitis (ICD-10 - N30.90) She voices that she was diagnosed with a urinary tract infection when she was in the hospital. She voices that normally she is sensitve to knowing if she has a UTI but she did not know that she had aurinary tract infection this time. Jan,iabetes type 2, uncontrolled (ICD-10 - E11.65)Will cautiously [...] taking Ambien, she is taking Melatonin. Jan,ther intermission coordinator (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 therapy (ICD-10 - Z79.899) Jan,epression (ICD-10 - F32.9)She voices that the Effexor is working well for her and she would like to have a 90 day supply. A new prescription is provided. Jan,therShe voices that she was watching the fireworks [...] ER right away because she was at [place] is [place] of [place] and there was not an ER close [...] he thinks she can return to driving. [employer] Other 06-27-2022 Evaluation note* Encounter Date Diagnosis Assessment Notes Treatment Notes Treatment Clinical Notes Dec, Dysphagia (ICD-10 - R13.10) [employer] Other 06-27-2022 Evaluation note* Encounter Date Diagnosis Assessment Notes Treatment Notes Treatment Clinical Notes Dec, Other spondylosis wi th radiculopathy, lumbar region (ICD-10 - M47.26) [employer] Other 06-16-2022 Evaluation note* Encounter Date Diagnosis [...] - M20.42) Dec,Foot deformity (ICD-10 - M21.969) [employer] Other 06-08-2022 Evaluation note* Encounter Date Diagnosis Assessment Notes Treatment Notes Treatment Clinical Notes Dec, Peripheral edema (ICD-10 - R60.9 ) [employer] Other 06-06-2022 Evaluation note* Encounter Date Diagnosis Assessment Notes Treatment Notes Treatment Clinical Notes Dec, History of colon polyps (ICD-10 - Z86.010) Dec,Irritable bowel syndrome with diarrhea (ICD-10 - K58.0)MAY USE IMODIUM NEEDED PT TO REPORT PROGRESS [employer] Other 05-02-2022 Evaluation note* Encounter Date Diagnosis Assessment Notes Treatment Notes Treatment Clinical Notes November, Cystitis (ICD-10 - N30.90) [employer] Other 03-22-2022 Evaluation note* Encounter Date Diagnosis [...] Continue with above medication daily as directed. Sep,2Other abnormal blood chemistry (ICD-10 - R79.89) Her kidney studies were reviewed. BUN is 37. Creatinine is 1.11. EGFR is 47. Her kidney studies have improved. She is to drink plenty of water daily. Sep,ough (ICD-10 - R05.9) She voices that when she came home from traveling from [place] last week she had congestion and wascoughing alot, she had alot of irritation in her throat and the back of her throat. She feels like someone put a bullet in her throat. She took a decongestant yesterday and feels better today. 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 I did recommend that she [...] that she was able to travel to [place] last week on her own for the first time by herself with her back issues and did well. She did have to use a wheelchair. She did need a wheelchair while in the airport. An [place] report was reviewed, no discrepancies noted. Frequent appointments needed due to addiction potential. She has not gone to the [facility]. She voices thatshe never got a call back from that center and did not pursue this because she got involved with a urologist then developed bowel issues. She voices that she will follow up with the [facility] and Dr. Regan for this issue. Sep,ladder instability (ICD-10 - N32.89) She voices that she did follow with urology, Dr. Rdeding and did get Botox treatments followed by [...] were reviewed. Sep,ther2:54 PM - 3:20 PM [employer] Other 03-21-2022 Evaluation note* Encounter Date Diagnosis Assessment Notes Treatment Notes Treatment Clinical Notes Sep, Cough (ICD-10 - R05.9) [employer] Other 03-03-2022 Evaluation note* Encounter Date Diagnosis [...] I did recommend that she see a through operator for evaluation to discuss these issues further, [...] She agrees but she is going to [place] on 09-19-21 and will not return until [...] with the Imodium until she returns from [place] and is seen by Dr. Milner. She [...] is having. Sep,ther9:29 AM - 9:49 AM [employer] Other 01-05-2022 Evaluation note* Encounter Date Diagnosis Assessment Notes Treatment Notes Treatment Clinical Notes Jul, Neuropathy (ICD-10 - G62.9) [employer] Other 12-06-2021 Evaluation note* Encounter Date Diagnosis [...] refer her to the spine center in [place] but she did not pursue this. We [...] - N30.90) She currently follows with a melter supervisor. She also saw Dr. Redding for evaluation and he did a procedure on her bladder to help with bladder leakage, she was supposed to see him again but he was sick soshe is trying to get in to see either him or another doctor such as Dr. Peterson or Dr. Gleason, she does not want to see his PA or FAITH HEALER. She gets a pain in her vaginal area, describes it as a cut but now it feels as if it is going up higher. When she went to bindery helper [facility]ondo[facility] yesterday she felt like someone cut her [...] the future. Jun,Other2:53 PM - 3:23 PM [employer] Other 10-12-2021 Evaluation note* Encounter Date Diagnosis Assessment Notes Treatment Notes Treatment Clinical Notes Apr, Neuropathy (ICD-10 - G62.9) [employer] Other 09-22-2021 Evaluation note* Encounter Date Diagnosis [...] Dr. Regan is referring her to the [facility] and she is seeing Oscar [...] the kidneys. She has never seen a lead rider before. Her BUN is 40. Creatinine is [...] 6.2. We discussed referring her to a forest fire equipment operator for evaluation and to discuss this further but instead we will repeat lab in one month and if her level is this high or higher then we will do a referral through the [facility] in [place]. Mar,Knee pain (ICD-10 - M25.569) She was [...] attending physical therapy and will see the [facility] soon. Mar,Weight loss (ICD-10 - R63.4) She has lost 5.5 pounds since last seen. She voices that she is trying to lose weight slowly. Encouraged her to continue with what she is doing. [employer] Other Evaluation + Plan note Future Appointments Appointment Date:02/24/2024 10:00:00 AM Scheduled Provider:SUSAN RANDOLPH PA-C Location:[facility] Appointment Type:URO Office Visit [facility] evaluation + Plan note Future Appointments Appointment Date:02/14/2025 01:20:00 PM Scheduled Provider:SUSAN RANDOLPH PA-C Location:[facility] Appointment Type:URO Office Visit [facility] evaluation + Plan note Future Appointments Appointment Date:10/27/2025 10:20:00 AM Scheduled Provider:JOSE Stewart APRN, [place] [facility] Location:[facility] Appointment Type:URO Office Visit [facility] evaluation note* Diagnosis Pain in both knees, unspecified chronicity- Primary documented in [facility] encounter [facility] noteNo InformationChandler Akimbo Other Evaluation note* Diagnosis Onset Date Resolution Status Abrasion acuteAcute hypotensionacuteAcute UTIacuteAKI (acute kidney injury)acuteContusion of leg, rightacuteFallacuteMinor closed head injuryacuteRight wrist fracture acuteSepsisacuteDiabeteschronicAcute UTIacuteChronic back painacuteDepression acuteDiabetic neuropathyacuteFallacuteHematoma of right lower legacuteImpaired mobility and activities of daily livingacuteMinor closed head injuryacuteRight wrist fractureacuteDiabeteschronicHypertensionchronicHypothyroidismmary free bed rehabilitation hospitalic [facility] Work Phone: Evaluation note* Diagnosis Lymphocytosis- Primary Lymphocytosis (symptomatic) documented in this encounter [facility]* Diagnosis CLL (chronic lymphocytic leukemia) (HCC)- Primary Chronic lymphoid leukemia, without mention of having achieved remission documented in this encounter [facility]healthEvaluation note* Diagnosis Onset Date Resolution Status Acute UTI acuteChronic back painacuteDepressionacuteDiabetic neuropathyacuteFallacute Hematoma of right lower legacuteImpaired mobility and activities of daily living acuteMinor closed head injuryacuteRight wrist fractureacuteDiabeteschronic HypertensionchronicHypothyroidismFisher-Titus Medical Center Work Phone: Evaluation note* Diagnosis CLL (chronic lymphocytic leukemia) (HCC)- Primary Chronic lymphoid leukemia, without mention of having achieved remission Right ear pain Otalgia, unspecified Rib pain Chest pain, unspecified Axillary adenopathy Enlargement of lymph nodes Other signs and symptoms in breast Encounter for screening mammogram for malignant neoplasm of breast Other screening mammogram documented in this encounter [facility] noteNo assessment information [facility] Work Phone: Evaluation note* Diagnosis CLL (chronic lymphocytic leukemia) (HCC)- Primary Chronic lymphoid leukemia, without mention of having achieved remission documented in this encounter [facility] note* Diagnosis Onychomycosis- Primary Dermatophytosis of nail 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) Pain in both feet [facility]* Diagnosis Onset Date Resolution Status Chronic lymphocytic leukemia acuteCystitisacuteDiabetes type 2, uncontrolledacuteLumbar disc disease with radiculopathyacuteNeuropathyacuteOther abnormal blood chemistryacute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 coordinator (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 therapyacutePeripheral edemaacuteHLD (hyperlipidemia)chronic HypertensionchronicHypothyroidismchronicInsomniachronAultman Alliance [facility] Work Phone: Evaluation note* Diagnosis Onset Date Resolution Status Right otitis media acuteCystitisacuteDiabetes type 2, uncontrolledacuteOther spondylosis with radiculopathy, lumbar regionacuteRheumatismacuteInsomniaChildren's Hospital of [facility] Work Phone: Evaluation note* Diagnosis Primary osteoarthritis involving multiple joints- Primary Fibromyalgia Mylagia and myositis, unspecified Type 2 diabetes mellitus without complication, with long-term current use of insulin ([facility]) documented in this encounter [facility]Evaluation note* Diagnosis CLL (chronic lymphocytic leukemia) (HCC)- Primary Chronic lymphoid leukemia, without mention of having achieved remission documented in this encounter [facility]Evaluation note* Diagnosis Cognitive impairment- Primary Unspecified persistent mental disorders due to conditions classified elsewhere Long-term use of high-risk medication [facility]* Diagnosis Diarrhea, unspecified type- Primary Constipation, unspecified constipation type documented [facility]* Diagnosis Memory loss- Primary Concentration deficit Word finding difficulty Other chronic pain Family history of dementia Family history of other neurological diseases [facility]* Diagnosis Cognitive impairment- Primary Unspecified persistent mental disorders due to conditions classified elsewhere [facility]* Diagnosis Onset Date Resolution Status Admit Date Cystitis acuteJanuary 2024 1:16pmIrritable bowel syndrome with diarrheaacuteJanuary 2024 1:16pmOther spondylosis with radiculopathy, lumbar regionacute August 11, 2024 1:16pm [facility] Work Phone: Evaluation note* Diagnosis Onset Date Resolution Status Admit Date Chronic kidney disease, stage 3b acuteApril 2024 3:41pmChronic lymphocytic leukemiaacuteApril 2024 3:41pmCystitisacuteApril 2024 3:41pmDiabetesacuteApril 2024 3:41pm Other spondylosis with radiculopathy, lumbar regionacuteApril 2024 3:41pm Peripheral edemaacuteApril 2024 3:41pmPremature beatacuteApril 2024 3:41pmRheumatismacuteApril 2024 3:41pmHLD (hyperlipidemia)chronicApril 2024 3:41pmHypertensionchronicApril 2024 3:41pmHypothyroidismchronic November 10, 2024 3:41pm [facility] Work Phone: Evaluation note* Diagnosis Fibromyalgia- Primary Mylagia and myositis, unspecified Primary osteoarthritis involving multiple joints Type 2 diabetes mellitus without complication, with long-term current use of insulin (HCC) Long-term use of Plaquenil Encounter for long-term (current) use of other medications documented in this encounter [facility] note* Diagnosis Diarrhea, unspecified type- Primary [facility]* Diagnosis Hill angioma- Primary Seborrheic keratosis Actinic keratosis Lentigines Lipoma of right upper extremity [facility] HealthcareHistory general Narrative - Reported* Type Description Date Medical History pelvic exam done Medical Nwdcyvs1465 mammogram-normalMedical Xykjvzh56[address] colon[address] Qglecip3888 CT scan doneMedical Mfievju0897 eye examMedical History Zostavax doneMedical Jvbnfgx82-9122 Flu/H1N1 vaccineMedical History-2010 mammogramMedical History-2010 DEXA scanMedical HistoryFollows with Dr. Betts yearlyMedical Iahfxly3-6-8240 Left femur FRMedical Xiuuipy9-3-1411 [facility] stress test-normal ([facility])Medical History Mammogram 2015 - Dr. FritzSurgical Historybilateral inguinal hernia wxqmeu2808 Surgical Historyleft ehcz2639Cvrqzrkw Zbcajjqksnhmptqsxrw5025Vxvmjbnf History abdominal obddlq6391Tvigxshe Historyhernia yzmizr1259Sqighofw History bdiuioxzcbqh3040Jnwnnqct Historyright knee replacement (Dr Antonio)1-2009 Surgical Historyleft total knee (Dr Haque)2-2011Surgical Historybil inguinal hernia bfxuhk9305Rsxkilup Historylt kslh9436Ivevqnry Historyright knee replacement- Dr. Easton-2009Surgical Historyleft total knee-Dr. Haque2-[address] Frias03/24/17Surgical HistoryColonoscopy, Dr. Betts, colon fvceiy3-1-0783Wdsiwkaziwmbhdr Historysee above [employer] Other History general Narrative - Reported* Type Description Date Medical History -2007 pelvic exam done Medical Mszbdss4566 mammogram-normalMedical Hjkchzq3421 colonoscopyMedical Cqcjvul7301 CT scan doneMedical Hvelrbg7288 eye examMedical History3-2009 Zostavax doneMedical Oubwmlu60-4295 Flu/H1N1 vaccineMedical History1-2010 mammogramMedical History1-2010 DEXA scanMedical HistoryFollows with Dr. Betts yearlyMedical Dvdzxgr3-5-7549 Left femur FRMCMedical Rwsojbx0-3-2230 Chest x-ray FRMedical History7-2003 stress test-normal ([facility])Medical History Mammogram 2015 - Dr. FritzSurgical Historybilateral inguinal hernia asxkdk9229 Surgical Historyleft wtcx2055Jpzzqmkm Odbvmkzqmucyjdyfyrw6307Hikmpmua History abdominal aqaczh3423Obbiikmv Historyhernia pkajxb0467Hzvfhkab History muubivzfruwz0213Laoymeyc Historyright knee replacement (Dr Antonio)1-2009 Surgical Historyleft total knee (Dr Haque)2-2011Surgical Historybil inguinal hernia aejbbu6249Vferqtms Historylt kzqp7151Pxhqlnzp Historyright knee replacement- Dr. Easton-2009Surgical Historyleft total knee-Dr. Haque2-[address] Frias03/24/17Surgical HistoryColonoscopy, Dr. Betts, colon xxaido9-3-2250Mriirdubhyefiag Historysee aboveHospitalization Historyfx wrist and head laceration after a fall01/13/22 [employer] Other History general Narrative - Reported* Type Description Date Medical History pelvic exam done Medical Eblszre3117 mammogram-normalMedical Slwylba4126 colonoscopyMedical Hbbgmss6780 CT scan doneMedical Ejdrvrx4256 eye examMedical History Zostavax doneMedical Lsxjhbn58-7666 Flu/H1N1 vaccineMedical History-2010 mammogramMedical History-2010 DEXA scanMedical HistoryFollows with Dr. Betts yearlyMedical Qbvmenu1-2-1183 Left femur FRMCMedical Mqgoxsb7-6-7498 Chest x-ray FRMedical History stress test-normal ([facility])Medical History Mammogram 2015 - Dr. FritzMedical HistoryLeukemiaSurgical Historybilateral inguinal hernia nlzuuj0293Gipsfmii Historyleft jjzq5105Baxftnfe History amcljtwnklnz8999Zxuuatjo Historyabdominal rjdnmm4560Gkyjnqmn Historyhernia eeqlgd3516Yrggrmmz Rumipczfldbwaynheqj4123Nshrgrrf Historyright knee replacement (Dr Antonio)1-2009Surgical Historyleft total knee (Dr Haque)2-2011Surgical Historybil inguinal hernia ykezjg2872Stnkzqkf Historylt wpnq9838Loxfkcon History right knee replacement- Dr. Noeld1-2009Surgical Historyleft total knee-Dr. Haque 2-[address] Frias03/24/17Surgical HistoryColonoscopy, Dr. Betts, colon qktrci0-1-9394Jcfbwgnvgcbjspq Historysee above Hospitalization Historyfx wrist and head laceration after a fall01/13/[address] [facility] Xquva Other History general Narrative - Reported* Type Description Date Medical History pelvic exam done Medical Dsftbre9372 mammogram-normalMedical Qdhzrsm3283 colonoscopyMedical Mozfzlf1610 CT scan doneMedical Pxgsiwb8595 eye examMedical History Zostavax doneMedical Xzjyygq84-0811 Flu/H1N1 vaccineMedical History-2010 mammogramMedical History-2010 DEXA scanMedical HistoryFollows with Dr. Betts yearlyMedical Yhsdwwe5-0-3196 Left femur FRMCMedical Drjyxkv9-3-7458 Chest x-ray FRMedical History7-2003 stress test-normal ([facility])Medical History Mammogram 2016 - Dr. FritzMedical HistoryLeukemiaMedical HistoryArthritis Medical Historydiabetes mallitusMedical Historyhigh cholesterolMedical History chronic depressionMedical Historythyroid diseaseSurgical Historybilateral inguinal hernia czatxj0541Vitwjkgz Historyleft fove5919Lnzusckf History uexmqupsjehm0592Lzpjzvdy Historyabdominal pwuwof3362Crzdzpje Historyhernia prwgib8419Ctqbdjwg Ipuxttoethkfxtlqhtg1241Hnhnayqp Historyright knee replacement (Dr Antonio)1-2009Surgical Historyleft total knee (Dr Haque)2-2011Surgical Historybil inguinal hernia zfucbl1021Pmjuoeng Historylt jtzw0384Vztkkhrc History right knee replacement- Dr. Noeld1-2009Surgical Historyleft total knee-Dr. Haque 2-[address] Frias03/24/17Surgical HistoryColonoscopy, Dr. Betts, colon cbeett0-0-4891Hrdpbqqgvrdpycr Historysee above Hospitalization Historyfx wrist and head laceration after a fall01/13/22 [employer] Other Hospital course Narrative No data available for this section [facility] Dis[facility] instructions[facility] Work Phone: Hospital Discharge instructionsAmbulatory Orders* Referral to Sleep Medicine Time Frame: 02/05/24, Location: None [facility] Work Phone: Hospital Discharge instructionsAmbulatory Orders* Referral to General Surgery Time Frame: 04/05/24, Location: None [facility] Work Phone: Progress note No data available for this section [facility] reason for referral (narrative)* Diagnostic Procedure Only (Routine)StatusReasonSpecialtyDiagnoses / ProceduresReferred By Contact Referred To ContactPending Review Auto-Generated Referral XR IMAGING Diagnoses Pain in both knees, unspecified chronicity Procedures XR PELVIS 1V AP X-RAY PELVIS AP ONLY Dale Espinoza PA-C [address] [place] [address] Xr Imaging * Diagnostic Procedure Only (Routine)StatusReasonSpecialtyDiagnoses / Procedures Referred By ContactReferred To ContactPending Review Auto-Generated Referral XR IMAGING Diagnoses Pain in both knees, unspecified chronicity Procedures XR KNEE GENERAL 4V AP BOTH/PA BOTH/LAT/MERC BILAT KNEE AP-WGT/LAT/MERCHANT Dale Espinoza PA-C [address] [place] [address] Xr Imaging [facility] for referral (narrative)* Diagnostic Procedure Only (Routine) - Pending ReviewSpecialtyDiagnoses / ProceduresReferred By Contact Referred To ContactBR IMAGING Diagnoses Encounter for screening mammogram for malignant neoplasm of breast Procedures SONYA SCREENING W NEYDA SCREENING DIGITAL BREAST TOMOSYNTHESIS BI SCREENING MAMMOGRAPHY BI 2-VIEW BREAST INC CAD Santos Lares MD [address] [place] [address] [facility] [address] [place] [address] Referral IDStatusReasonStart DateExpiration DateVisits RequestedVisits [id number] Review Auto-Generated Referral / * Diagnostic Procedure Only (Routine) - Pending ReviewSpecialtyDiagnoses / ProceduresReferred By ContactReferred To ContactBR IMAGING Diagnoses Axillary adenopathy Other signs and symptoms in breast Procedures US BREAST LTD LT US BREAST UNI REAL TIME WITH IMAGE LIMITED Santos Lares MD [address] [place] [address] [facility] [address] [place] [address] Referral IDStatusReasonStart DateExpiration DateVisits RequestedVisits [id number] Review Auto-Generated Referral / * Diagnostic Procedure Only (Routine) - Pending ReviewSpecialtyDiagnoses / ProceduresReferred By ContactReferred To ContactXR IMAGING Diagnoses Rib pain Procedures XR RIBS/CHEST 3V AP RIB/OBLS/CXR LEFT RADEX RIBS UNI W/POSTEROANT CH MINIMUM 3 VIEWS Santos Lares MD [address] [place] [address] Xr Imaging Referral IDStatusReasonStart DateExpiration DateVisits RequestedVisits [id number] Review Auto-Generated Referral / * Consult, Test, Treat (Routine) - AuthorizedSpecialtyDiagnoses / Procedures Referred By ContactReferred To ContactEnt - Otolaryngology Diagnoses Right ear pain Procedures CONSULT TO [facility] OFFICE[facility]IENT [facility]-74 [facility] Santos Lares MD [address] [place] [address] Referral IDStatusReasonStart DateExpiration DateVisits RequestedVisits [id number] PCP [facility]ed [facility] Reason appt pt needs cons ult to see Homa Mckeon /Dr. Corea for evaluation of lumbar pain Diagnosis 1 Other spondylosis wi th radiculopathy, lumbar region (M47.26) Referral Organization [facility] [place] Referring Provider First Name Ayanna Referring Provider Last Name Sakina Referring Provider Specialty Family Prac art Referred Organization [facility] Referred Provider Homa Mckeon Referred Address [address] [facility],[address],[address] Referred Provider Specialty Nurse Uli cotto Referral Priority Routine General Notes Nereyda Sanchez 04/15/2023 03:33:35 PM > referral sent p2p. pt understands she will be contacted to schedule this appt [facility] Other Reeoug for referral (narrative)No reason for referral information [facility]Reg[facility] Work Phone: Reason for visit Narrativereview labs, refill medication, discuss multiple issues, see treatment plan for further information [facility] Other reason for visit NarrativePT HERE AT REQUEST OF DR VICENTE FOR EVALUATION AND TREATMENT OF CHANGE IN STOOL HABITS AND HISTORY OF IRRITABLE BOWEL SYNDROME AND COLON POLYPS, REFERRAL NOTE [facility] [place] Other Reymwe for visit Narrativereview labs/med refill, discuss multiple issues see treatment planNoboone hospital center [place] Other Replbp for visit NarrativeNeurosurgery Referral Update [facility] Other reason for visit Narrative* Consultation (Routine) - ClosedSpecialtyDiagnoses / ProceduresReferred By ContactReferred To Contact Neurology Diagnoses Other amnesia Procedures DE OFFICE/OUTPATIENT NEW LOW MDM 30 MINUTES Ayanna Vicente MD [address] [place] [address] Phone: tel: fax: Babita Guillaume DO [address] [place] [address] Phone: tel: fax: Referral IDStatusReasonStart DateExpiration DateVisits RequestedVisits [id number] Consult and Treat [facility] HealthcareReason for visit Narrative* Consultation (Routine) - Closed SpecialtyDiagnoses / ProceduresReferred By ContactReferred To Contact Psychology Diagnoses Cognitive impairment Procedures DE OFFICE/OUTPATIENT NEW HIGH MDM Babita Guillaume DO [address] [place] [address] Phone: tel: fax: Enrique Hammonds, PhD [address] [address] Phone: tel: fax: Referral IDStatusReasonStart DateExpiration DateVisits RequestedVisits [id number] Specialty Services Required / [facility] Healthcare Summary Purpose Family History No Family [...] in right hip (M 25.551) Referral Organization [facility] urosurgery Referring Provider First Name Homa Referring Provider Last Name Mike Referring Provider Specialty Nurse Pract joseluisr Referred Organization [facility] Referred Provider Bonnie Slade Referred Address [address] [place], [place],[address] Referred Provider Specialty Pain Medicin e Referral Priority Routine General Notes Susan Ugarte 04:33:20 PM >received today, holding referral for todays visit note to be locked Reason evaluate and t reat for hip pain Diagnosis 1 Pain in right hip (M 25.551) Referral Organization [facility] u[facility]gery Referring Provider First Name Homa Referring Provider Last Name Mike Referring Provider Specialty Nurse Pracchristina herman Referred Organization [facility] Referred Provider Gume Macedo Referred Address [address] [facility] [address] [facility] Referred Provider Specialty Orthopedic S urgery Referral Priority Routine General Notes Susan Ugarte 04:34:14 PM >received today, sending p2p at this time for scheduling Reason Aqua therapy - evalu ate and treat Diagnosis 1 Pain in right hip (M 25.551) Diagnosis 2 Lumbar pain (M54.50) Referral Organization [facility] urosurger Referring Provider First Name Homa Referring Provider Last Name Mike Referring Provider Specialty Nurse Danielito herman Referred Organization [facility] -Central Scheduling Referred Address [address], [place],[address] Referred Provider Specialty Physical The rapist Referral Priority Routine Reason appt pt would like to discuss hip, back, knee and sciatic pain Diagnosis 1 Other spondylosis wi th radiculopathy, lumbar region (M47.26) Referral Organization [facility] [place] Referring Provider First Name Ayanna Referring Provider Last Name Sakina Referring Provider Specialty Family Prac art Referred Organization [facility] Referred Provider Homa Mckeon Referred Address [address] [facility],[place] [address] ,[place], [place],[address] Referred Provider Specialty Nurse Uli cotto Referral Priority Routine General Notes Nereyda Sanchez 07/16/2023 03:06:01 PM > referral sent p2p. pt understands she will be contacted to schedule this appt Reason appt pt is lu gilliam to see any of the providers consult for eval and treatment of rheumatism/prescribing of Plaquenil Diagnosis 1 Rheumatism, unspecif ied (M79.0) Referral Organization [facility] [place] Referring Provider First Name Ayanna Referring Provider Last Name Sakina Referring Provider Specialty Family Prac art Referred Organization [facility] Referred Provider Esteban Saravia Referred Address [address] [place],[address] Referred Provider Specialty Rheumatology Referral Priority Routine [...] Wrist fracture, righ t (S62.101A) Referral Organization [facility] [place] Referring Provider First Name Ayanna Referring Provider Last Name Sakina Referring Provider Specialty [facility] Prac art Referred Organization [facility] Referred Provider Penny Mike Referred Address [address] [facility] [place],[address] Referred Provider Specialty Hand Surgery Referral Priority [...] th radiculopathy, lumbar region (M47.26) Referral Organization [facility] [place] Referring Provider First Name Ayanna Referring Provider Last Name Sakina Referring Provider Specialty Family Prac art Referred Organization [facility] Referred Provider Anthony Morales Referred Address [address] [place],[address] Referred Provider Specialty Psychiatry, Neurology (Osteopaths only) [...] Diagnosis 1 Leukocytosis (D72.82 9) Referral Organization [facility] [place] Referring Provider First Name Ayanna Referring Provider Last Name Sakina Referring Provider Specialty Family Prac art Referred Organization [facility] Referred Provider Saqib Coleman Referred Address [address] [place] [place],[address] Referred Provider Specialty Hematology/O ncology Referral Priority [...] Knee pain, right (M2 5.561) Referral Organization [facility] [place] Referring Provider First Name Ayanna Referring Provider Last Name Sakina Referring Provider Specialty Family Prac art Referred Organization [facility] Referred Provider Zohaib Akins II Referred Address [address] [facility] [place],[address] Referred Provider Specialty Orthopedic S urgery Referral Priority Routine General Notes Nereyda Sanchez 02/06/2022 02:16:49 PM > referral sent p2p. pt understands she will be contacted to schedule this appt. Reason appt pt needs cons ult to discuss change in stool habits, history of colon polyps, hx of IBS Diagnosis 1 Change in stool jacquie yesi (R19.4) Referral Organization [facility] [place] Referring Provider First Name Ayanna Referring Provider Last Name Sakina Referring Provider Specialty Family Prac art Referred Organization [facility] Gastroenterolo gy Referred Provider Ayanna Milner Referred Address [address] [facility] ,[place],[address] Referred Provider Specialty Gastroentero logy Referral Priority [...] radiculopathy Neuropathy Other abnormal blood chemistry 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 coordinator (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 therapy Peripheral edema HLD (hyperlipidemia) Hypertension Hypothyroidism Insomnia Chief Complaint Amb Documentation E11.65 E78.5 E03.9 R79.89 N30.90 Amb Documentation review labs/med refill sore throat, congestion, coughReason for VisitChronic lymphocytic leukemia Cystitis Diabetes type 2, uncontrolled Lumbar disc disease with radiculopathy Neuropathy Other abnormal blood chemistry 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 coordinator (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 therapy Peripheral edema HLD (hyperlipidemia) [...] eptember 2023 9:49am Other spondylosis with radiculopathy, [facility] April 05, 2024 9:49am Cystitis May 11, 2024 2 :37pm Diabetes type 2, uncontrolled May 112023 2:37pm Hip pain, left May 11, 2024 2 :37pm Knee pain, left May 11, 2024 2 :37pm Memory changes May 11, 2024 2 :37pm Other abnormal blood chemistry April 142023 2:37pm [facility] May 11, 2024 2:37pm HLD (hyperlipidemia) [...] anuary 2024 1:16pm Other spondylosis with radiculopathy, [facility] August 11, 2024 1:16pm Chief Complaint [...] 2024 3:4 1pm Other spondylosis with radiculopathy, [facility] November 10, 2024 3:41pm Peripheral edema November [...] 2024 3:4 1pm Other spondylosis with radiculopathy, [facility] November 10, 2024 3:41pm [...] 2024 3:4 1pm Other spondylosis with radiculopathy, [facility] November 10, 2024 3:41pm [...] 1:49am Bronchiolitis April 28, 2025 1 1:49am Chief Complaint Admit Date cough, congestion April 26, 2025 1 :42pm R06.02 April 26, 2025 2 :03pm UC f/u bronchitis April 28, 2025 1 1:49am review labs/med refill May 18 2:39pm Reason for Visit Admit Date Bronchiolitis April [...] 2:39pm Hypothyroidism May 18, 2025 2 :39pm Chief Complaint Admit Date cough, congestion April 26, 2025 1 :42pm R06.02 April 26, 2025 2 :03pm UC f/u bronchitis April 28, 2025 1 1:49am review labs/med refill May 18 2:39pm Z12.31 May 19, 2025 1 1:13am Additional Source Comments INFORMATION SOURCE (unrecogn ized section and content) DATE CREATED AUTHOR 01/06/2021 [facility] DATE CREATED AUTHOR AUTHOR'S ORGANIZ ATION 08/16/2022 [facility] DATE CREATED AUTHOR AUTHOR'S ORGANIZ ATION 11/13/2022 [facility] DATE CREATED AUTHOR AUTHOR'S ORGANIZ ATION 12/18/2024 [facility] DATE CREATED AUTHOR AUTHOR'S ORGANIZ ATION 02/10/2025 [facility] DATE CREATED AUTHOR AUTHOR'S ORGANIZ ATION 03/27/2025 [facility] DATE CREATED AUTHOR AUTHOR'S ORGANIZ ATION 04/21/2025 [facility] EPIC DATE CREATED AUTHOR AUTHOR'S MOMO TAY 05/21/2025 [facility] Source Comments (unrecognize d section and content) In the event this informatio n is protected by the Federal Confidentiality of Alcohol and Drug Abuse Patient Records regulations: The Federal rules restrict any use of the information to criminally investigate or prosecute any alcohol or drug abuse patient.TrihealthIn the event this information is protected by the Federal Confidentiality of Alcohol and Drug Abuse Patient Records regulations: The Federal rules restrict any use of the information to criminally investigate or prosecute any alcohol or drug abuse patient.TrihealthIn the event this information is protected by the Federal Confidentiality of Alcohol and Drug Abuse Patient Records regulations: The Federal rules restrict any use of the information to criminally investigate or prosecute any alcohol or drug abuse patient.TrihealthIn the event this information is protected by the Federal Confidentiality of Alcohol and Drug Abuse Patient Records regulations: The Federal rules restrict any use of the information to criminally investigate or prosecute any alcohol or drug abuse patient.TrihealthIn the event this information is protected by the Federal Confidentiality of Alcohol and Drug Abuse Patient Records regulations: The Federal rules restrict any use of the information to criminally investigate or prosecute any alcohol or drug abuse patient.TrihealthIn the event this information is protected by the Federal Confidentiality of Alcohol and Drug Abuse Patient Records regulations: The Federal rules restrict any use of the information to criminally investigate or prosecute any alcohol or drug abuse patient.TrihealthIn the event this information is protected by the Federal Confidentiality of Alcohol and Drug Abuse Patient Records regulations: The Federal rules restrict any use of the information to criminally investigate or prosecute any alcohol or drug abuse patient.TrihealthIn the event this information is protected by the Federal Confidentiality of Alcohol and Drug Abuse Patient Records regulations: The Federal rules restrict any use of the information to criminally investigate or prosecute any alcohol or drug abuse patient.TrihealthIn the event this information is protected by the Federal Confidentiality of Alcohol and Drug Abuse Patient Records regulations: The Federal rules restrict any use of the information to criminally investigate or prosecute any alcohol or drug abuse patient.TrihealthIn the event this information is protected by the Federal Confidentiality of Alcohol and Drug Abuse Patient Records regulations: The Federal rules restrict any use of the information to criminally investigate or prosecute any alcohol or drug abuse patient.TrihealthIn the event this information is protected by the Federal Confidentiality of Alcohol and Drug Abuse Patient Records regulations: The Federal rules restrict any use of the information to criminally investigate or prosecute any alcohol or drug abuse patient.TrihealthIn the event this information is protected by the Federal Confidentiality of Alcohol and Drug Abuse Patient Records regulations: The Federal rules restrict any use of the information to criminally investigate or prosecute any alcohol or drug abuse patient.[facility] REASON FOR VISIT (unrecogniz ed section and [...] Provider Active S tart: March 16, 2025 Andcory Azul MDAttending ProviderActiveStart: March 16, 2025 Team Status: Inactive Member Role Status Kayla Vicetne DO Primary Care Provider Active S tart: April 26, 2025 End: April 26Héctor Ortiz ProviderActiveStart: April 26, 2025 End: April 26, 2025 Team Status: Inactive Member Role Status Kayla Vicente DO Primary Care Provider Active S tart: April 28, 2025 End: April 28, 2025Daperi Vicente , DOAttending ProviderActiveStart: April 28, 2025 End: April [...] 19, 2025 End: January 19, 2025Frnat Betts , DOAttending ProviderActiveStart: January 19, 2025 End: January [...] June 15, 2024 Tri Vasquez Marker , DOAttending ProviderActiveStart: June 15, 2024 Team [...] Megan Armando Provider, Attending ProviderActiveRachel Penn , ALLYSSA Other ProviderActiveJosette Orourke RNOther ProviderActiveEstrellita Camejo , ALLYSSA Other ProviderActiveMicdanuta Das RNOther ProviderActiveMarcie Acosta RNOther ProviderActiveMoantonio Wall RNOther ProviderActiveRaariane Hale MD Other ProviderActiveAnataqueria Kevin MDOther ProviderActiveLisa M Dials , CHAIRMAN AND CEO Other ProviderActiveRonobievans Juarez , DOOther ProviderActiveMusneris Hernandez MD Other ProviderActiveLoco Velasquez , DOOther ProviderActiveElgin Irby MDOther ProviderActiveRudyana Salamanca MDOther ProviderActiveLybrandon Riojas , ANP-BCOther ProviderActiveMax Paulino MDOther ProviderActiveFaisal Abel MDOther ProviderActiveBertram Garrison MDOther ProviderActiveBobby Guevara MD Other ProviderActiveTheric Chaparro MDOther ProviderActiveFirmaria alejandra Rock MDOther ProviderActiveMichael Burnett MDOther ProviderActiveYanira Najera , FAITH HEALER-COther ProviderActiveSalas Winslow MDOther ProviderActiveJoss Stoner MD Other ProviderActiveTerrie Hua MDOther ProviderActiveAnoMetzger MDOther ProviderActiveMeron Estrada , DOOther ProviderActiveHani Randell Palacios MD Other ProviderActiveNeal R Anita , DOOther ProviderActiveLinda Obika , CHAIRMAN AND CEO Other ProviderActiveShawn Alhaji Fontaine , DOOther ProviderActiveObakris De Los Santos MDOther ProviderActiveKathy Taylor , ALLYSSAOther ProviderActiveTheric Corral MD Other ProviderActiveCojoaquín Mike MDOther ProviderActiveJebrandonifer Chester Quarles , FAITH HEALER-COther ProviderActiveJucassandra Macedo , DOOther ProviderActiveRobert Wilfredo Akins II, MDOther ProviderActive Team Status: Inactive Member Role Status Dates Ayanna Vicente DO Primary Care Provider, Family Provid er Active Butch Redding MDEmergency ProviderActiveMagilda Garrison , MDAdmit Provider, Attending ProviderActive Team Status: Active Member Role Status Dates Ayanna Vicente DO Family Provider Active CHARLIE [facility] [place] ProviderActiveTeam MemberRelationshipSpecialty Start DateEnd Date Ayanna Vicente, DO [address] [place] [address] PCP - [facility] Medicine08/01/11 Ayanna Vicente, DO [address] [place] [address] ReferringFami Medicine10/04/20 Ayanna Vicente, DO [address] [place] [address] ReferringFamily Medicine01/09/21Team MemberRelationshipSpecialtyStart DateEnd Date Ayanna Vicente, DO [address] [place] [address] PCP - [facility] Medicine08/01/11 Ayanna Vicente, DO [address] [place] [address] ReferringFamily Medicine10/04/20 Ayanna Vicente, DO [address] [place] [address] ReferringFamily Medicine01/09/21Team MemberRelationshipSpecialtyStart DateEnd Date Ayanna Vicente, DO [address] [place] [address] PCP - [facility]08/01/11 Ayanna Vicente, DO [address] [place] [address] [facility]10/04/20 Ayanna Vicente, DO [address] [place] [address] [facility]01/09/21Team MemberRelationshipSpecialtyStart DateEnd Date Ayanna Vicente, DO [address] [place] [address] PCP - [facility]08/01/11 Ayanna Vicente, DO [address] [place] [address] [facility]10/04/20 Ayanna Vicente, DO [address] [place] [address] [facility]erring[facility]01/09/21 Team Status: Inactive Member Role Status Dates Ayanna Vicente DO Primary Care Provider, Family Provid er Active Laureen Wang ProviderActive Team Status: Inactive Member Role Status Dates Ayanna Vicente DO Primary Care Provider, Family Provid er Active Esvin Dubon FAITH HEALER-CAttending ProviderActiveTeam MemberRelationshipSpecialty Start DateEnd Date Ayanna Vicente, [address] [place] [address] PCP - [facility] Medicine08/01/11 Ayanna Vicente, [address] [place] [address] ReferringFamily Medicine10/04/20 Ayanna Vicente DO [address] [place] [address] ReferringFamily Medicine01/09/21Team MemberRelationshipSpecialtyStart DateEnd Date Ayanna Vicente MD [address] [place] [address] PCP - GeneralFamily Medicine12/10/22Team MemberRelationshipSpecialtyStart DateEnd Date Ayanna Vicente MD [address] [place] [address] [facility] - [facility]12/10/22 Team Status: Inactive Member Role Status Dates [...] January 12, 2024 End: January 12, 2024Letitia Pereira Pialuz ProviderActiveStart: January 12, 2024 End: January 12, [...] S tart: May 12, 2024 End: May 12aviLittle Murguia Care Provider, Referring ProviderActiveStart: May 12, 2024 End: May 12, 2024Team MemberRelationshipSpecialtyStart DateEnd Date Ayanna Vicente DO [address] [place] [address] PCP - [facility] Medicine08/01/11 Ayanna Vicente DO [address] [place] [address] [facility]10/04/20 Ayanna Vicente DO [address] [place] [address] [facility]01/09/21Team MemberRelationshipSpecialtyStart DateEnd Date Ayanna Vicente, DO [address] [place] [address] PCP - [facility]08/01/11 Ayanna Vicente, DO [address] [place] [address] [facility]erring[facility]10/04/20 Ayanna Vicente, DO [address] [place] [address] [facility]erring[facility]01/09/21Team MemberRelationshipSpecialtyStart DateEnd Date Ayanna Vicente, [address] [place] [address] PCP - [facility]08/01/11 Ayanna Vicente, [address] [place] [address] [facility]erring[facility]10/04/20 Ayanna Vicente, [address] [place] [address] Referring[facility]01/09/21Team MemberRelationshipSpecialtyStart DateEnd Date Ayanna Vicente MD [address] [place], [place] [id number] PCP - [facility]12/10/22Team MemberRelationshipSpecialtyStart DateEnd Date Ayanna Vicente MD [address] [place], [place] [id number] PCP - GeneralFamily Medicine12/10/22Team MemberRelationshipSpecialtyStart DateEnd Date Ayanna Vicente MD [address] [place] [address] PCP - GeneralFamily Medicine12/10/22Team MemberRelationshipSpecialtyStart DateEnd Date Ayanna Vicente MD [address] [place] [address] PCP - GeneralFamily Medicine12/10/22Team MemberRelationshipSpecialtyStart DateEnd Date Ayanna Vicente MD [address] [place] [address] PCP - GeneralFamily Medicine12/10/22Team MemberRelationshipSpecialtyStart DateEnd Date Ayanna Vicente MD [address] [place] [address] PCP - GeneralFamily Medicine12/10/22Team MemberRelationshipSpecialtyStart DateEnd Date Ayanna Vicente MD [address] [place] [address] PCP - GeneralFamily Medicine12/10/22 Babita Guillaume DO [address] [place] [address] Referring PhysicianNeurology1/Team MemberRelationshipSpecialtyStart DateEnd Date Ayanna Vicente MD [address] [place] [address] PCP - GeneralFamily Medicine12/10/22 Babita Guillaume, [address] [place] [address] Referring PhysicianNeurology1 Team Status: Active Member Role [...] Date Ayanna Vicente, [address] [place] [address] PCP - [facility]08/01/11 Ayanna Vicente, [address] [place] [address] [facility]/04/20 Ayanna Vicente DO [address] [place] [address] [facility] Medicine01/09/21Team MemberRelationshipSpecialtyStart DateEnd Date Ayanna Vicente, [address] [place] [address] [facility] - [facility]08/01/11 Ayanna Vicente DO [address] [place] [address] ReferringFamily Medicine10/04/20 Ayanna Vicente DO [address] [place] [id number] ReferringFamily Medicine01/09/21Team MemberRelationshipSpecialtyStart DateEnd Date Ayanna Vicente MD [address] [place], [place] [id number] PCP - GeneralFamily Medicine12/10/22 Babita Guillaume DO [address] [facility] [place], [place] [address] Referring PhysicianNeurology1Team MemberRelationshipSpecialtyStart DateEnd Date Ayanna Vicente MD [address] [place], [place] [id number] PCP - Generalmily Medicine12/10/22 Babita Guillaume DO [address] [place] [address] Referring PhysicianNeurolog08/09/24Team MemberRelationshipSpecialtyStart DateEnd Date Ayanna Vicente MD [address] [place], [place] [id number] PCP - GeneralFamily Medicine12/10/22 Babita Guillaume DO [address] [place] [address] Referring PhysicianNeurology1Team MemberRelationshipSpecialtyStart DateEnd Date Ayanna Vicente MD [address] [place], [place] [id number] PCP - GeneralFamily Medicine12/10/22 Babita Guillaume DO [address] [place] [address] Referring PhysicianNeurolog08/09/24 Team Status: Active Member Role Status Dates Ayanna Vicente DO Primary Care Provider Active S tart: April 26, 2025 Héctor Poon ProviderActiveStart: April 26, 2025 Team Status: Active Member Role/Relationship Status Dates Ayanna Vicente DO Primary Care Provider Active Team Status: Active Member Role/Relationship Status Dates Ayanna Vicente DO Primary Care Provider Active S tart: March 16, 2025 Som Azul MDAttending ProviderActiveStart: March 16, 2025 Team Status: Inactive Member Role/Relationship Status Dates Ayanna Vicenet DO Primary Care Provider Active S tart: April 26, 2025 End: April 26Héctor Ortiz ProviderActiveStart: April 26, 2025 End: April 26, 2025 Team Status: Inactive Member Role/Relationship Status Dates Ayanna Vicente DO Primary Care Provider Active S tart: April 26, 2025 End: April 26Héctor Ortiz ProviderActiveStart: April 26, 2025 End: April 26, 2025 Team Status: Inactive Member Role/Relationship Status Dates Ayanna Vicente DO Primary Care Provider Active S tart: April 28, 2025 End: April 28, 2025Daperi Vicente DOAttending ProviderActiveStart: April 28, 2025 End: April 28, 2025 Team Status: Active Member Role/Relationship Status Dates Ayanna Vicente DO Primary Care Provider Active S tart: May 16, 2025 Ayanna Vicente DOAttending ProviderActiveStart: May 16, 2025 Team Status: Inactive Member Role/Relationship Status Dates Ayanna Vicente DO Primary Care Provider Active S tart: May 18, 2025 End: May 18, 2025Daperi Vicente DOAttending ProviderActiveStart: May 18, 2025 End: May 18, 2025 Team Status: Inactive Member Role/Relationship Status Dates Ayanna Vicente DO Primary Care Provider Active S tart: May 19, 2025 End: May 19, 2025Davileonila Vicente DOAttending ProviderActiveStart: May 19, 2025 End: May 19, 2025 Goals (unrecognized section and content) Goals [...] BE BASED ON THE PRIMARY CLINICAL RECORDS. [facility] [employer] provides no warranty or guarantee of the accuracy or completeness of information in this document.
--- NOTE | 2025-05-26 14:17 | XR_ITS ---
The [address] [address] Patient Name: MIGUEL A APARICIO MRN: [id number] date: 1940 Sex: F Assigned Patient Location: [facility] Current Patient Location: [facility] Accession/Order Number: [id number] Exam Date: 05/26/2025 14:05 Report Date: 05/26/2025 14:32 At the request of: BENEDICTO WELCH NP Procedure: XR thoracic spine 3V XR thoracic spine 3V 05/26/2025 2:17 PM SIGNS AND SYMPTOMS: ^failed back syndrome, assess SCS lead placement PROTOCOLS: Frontal and lateral radiograph of the thoracic spine COMPARISON: None FINDINGS: The bones are in anatomic alignment with preservation of vertebral body heights. There is mild to moderate intervertebral disc height loss with anterior osteophyte formation throughout. No evidence of fracture or bony destructive lesion. A spinal cord stimulator is present. The leads are intact reaching the superior aspect of the T7 vertebral body. XR/XR thoracic spine 3V IMPRESSION: No fracture or dislocation. Mild to moderate disc and endplate degenerative changes are noted throughout. Impression dictated by: Favian Pacheco M.D. 05/26/2025 2:32 PM Dictation Location: [place] [address] Electronically authenticated by: [id number] Y Date: 05/26/2025 14:32
== END 2025-05-26 13:56 | disposition home or self-care (01) ==
LOC: RAD 13:57
PROVIDERS: PCP Family Medicine; Visit Provider Nurse Practitioner
DX: M96.1 Postlaminectomy syndrome, not elsewhere classified (principal)
CPT/HCPCS: 72072

== ENCOUNTER 2025-06-27 15:11 | Outpatient (OUT) | payer MEDICARE, SELFPAY ==
--- NOTE | 2025-06-27 15:42 | PM.CN ---
Consult Note: HPI Data of Consult Patient: known to practice within the last 3 years Consult date: 06/27/25 Requesting Physician: Som Azul MD Primary Care Provider: AYANNA VICENTE Consult Narrative Reason for consult: low back, leg pain Narrative: 84yof who presents for assessment. notes increasing low back, leg pain. states that she recently decreases lyrica per nephro directions. this has caused increased pain. tries to stay as active as she can, but has required more percocet because of increased pain. cc:: CC: Som Azul MD Review of Systems ROS Status of ROS 10 or more systems reviewed and unremarkable except as noted in history and below [facility] Medical History Post laminectomy syndrome ?M96.1 - Postlaminectomy syndrome, not elsewhere classified (ICD-10) Failed back syndrome ?M96.1 - Postlaminectomy syndrome, not elsewhere classified (ICD-10) History of blood transfusion ?Z92.89 - Personal history of other medical treatment (ICD-10) Chronic kidney disease ?N18.9 - Chronic kidney disease, unspecified (ICD-10) Extremity edema ?R60.0 - Localized edema (ICD-10) Activity intolerance ?R68.89 - Other general symptoms and signs (ICD-10) Fibromyalgia ?M79.7 - Fibromyalgia (ICD-10) Irritable bowel syndrome with diarrhea ?K58.0 - Irritable bowel syndrome with diarrhea (ICD-10) Leukocytosis ?D72.829 - Elevated white blood cell count, unspecified (ICD-10) Leukemia ?C95.90 - Leukemia, unspecified not having achieved remission (ICD-10) Lung nodule ?R91.1 - Solitary pulmonary nodule (ICD-10) Migraine ?G43.909 - Migraine, unspecified, not intractable, without status migrainosus (ICD-10) Insomnia ?G47.00 - Insomnia, unspecified (ICD-10) Depression ?F32.A - Depression, unspecified (ICD-10) Hypothyroidism (acquired) ?E03.9 - Hypothyroidism, unspecified (ICD-10) Chronic back pain ?M54.9 - Dorsalgia, unspecified (ICD-10) ?G89.29 - Other chronic pain (ICD-10) Hyperlipidemia ?E78.5 - Hyperlipidemia, unspecified (ICD-10) Anemia ?D64.9 - Anemia, unspecified (ICD-10) Osteoarthritis ?M19.90 - Unspecified osteoarthritis, unspecified site (ICD-10) Chronic lymphocytic leukemia ?C91.10 - Chronic lymphocytic leukemia of B-cell type not having achieved remission (ICD-10) Diabetes ?E11.9 - Type 2 diabetes mellitus without complications (ICD-10) Former smoker ?Z87.891 - Personal history of nicotine dependence (ICD-10) High cholesterol ?E78.00 - Pure hypercholesterolemia, unspecified (ICD-10) Hypertension ?I10 - Essential (primary) hypertension (ICD-10) Surgical History History of radiofrequency ablation (RFA) of nerve of lumbar spine ?Z98.890 - Other specified postprocedural states (ICD-10) S/P epidural steroid injection ?Z92.241 - Personal history of systemic steroid therapy (ICD-10) History of cataract extraction with lens replacement History of appendectomy ?Z90.49 - Acquired absence of other specified parts of digestive tract (ICD-10) H/O colonoscopy ?Z98.890 - Other specified postprocedural states (ICD-10) History of total knee arthroplasty ?Z96.659 - Presence of unspecified artificial knee joint (ICD-10) History of hernia repair ?Z98.890 - Other specified postprocedural states (ICD-10) ?Z87.19 - Personal history of other diseases of the digestive system (ICD-10) S/P lumbar fusion ?Z98.1 - Arthrodesis status (ICD-10) S/P hernia surgery ?Z98.890 - Other specified postprocedural states (ICD-10) ?Z87.19 - Personal history of other diseases of the digestive system (ICD-10) H/O: hysterectomy ?Z90.710 - Acquired absence of both cervix and uterus (ICD-10) Family History Other Family history of Parkinson disease Family history of cancer Family history of hypertension Family history of myocardial infarction Family history of stroke Heart disease Social History Within the past year, how often did you have a drink containing alcohol: monthly or less Smoking status: Never smoker Non-prescribed substance use: denies use Highest level of school completed/degree received: high school graduate Little interest or pleasure in doing things: not at all Feeling down, depressed, or hopeless: not at all Meds Home Medications and Allergies Home Medications ?Medication ?Instructions ?Recorded ?Confirmed ?Type B-complex with vitamin C 1 tab PO DAILY 08/25/23 03/21/25 History aspirin 81 mg tablet,delayed 81 mg PO DAILY 08/25/23 03/21/25 History release atorvastatin 20 mg tablet (Lipitor) 20 mg PO DAILY 08/25/23 03/21/25 History cholecalciferol (vitamin D3) 125 125 mcg PO DAILY 08/25/23 03/21/25 History mcg (5,000 unit) capsule ezetimibe 10 mg tablet (Zetia) 10 mg PO DAILY 08/25/23 03/21/25 History levothyroxine 100 mcg tablet 100 mcg PO DAILY 08/25/23 03/21/25 History (Synthroid) lisinopril 10 mg tablet 10 mg PO DAILY 08/25/23 03/21/25 History multivitamin 1 tab PO DAILY 08/25/23 03/21/25 History oxycodone-acetaminophen 5 mg-325 1 tab PO BID PRN pain 08/25/23 03/21/25 History mg tablet pregabalin 225 mg capsule (Lyrica) 225 mg PO BID 08/25/23 03/21/25 History propranolol 60 mg tablet 60 mg PO DAILY 08/25/23 03/21/25 History triamterene 37.5 1 tab PO DAILY 08/25/23 03/16/25 History mg-hydrochlorothiazide 25 mg tablet (Maxzide-25mg) venlafaxine 75 mg capsule,extended 75 mg PO DAILY 08/25/23 03/21/25 History release 24 hr (Effexor XR) zolpidem 5 mg tablet 5 mg PO DAILY 08/25/23 03/21/25 History insulin glargine 100 unit/mL (3 36 unit subcut QPM 02/09/25 03/21/25 History mL) subcutaneous pen (Lantus Solostar U-100 Insulin) magnesium oxide 400 mg (241.3 mg 400 mg PO DAILY 02/09/25 03/21/25 History magnesium) tablet metformin 1,000 mg tablet 1,000 mg PO BID 03/16/25 03/21/25 History clindamycin HCl 300 mg capsule 300 mg PO BID #14 caps 03/21/25 Rx Allergies Allergy/AdvReac Type Severity Reaction Status Date / Time cefpodoxime (From Vantin) Allergy Unknown Unknown Verified 03/16/25 08:24 Exam Narrative Exam Narrative: Psych-alert and oriented x 3. Attentive and appropriate, constitutionally normal, displays normal mood and affect per situation.? There are no obvious deficits in memory, reasoning, or intellect.? Skin-no obvious rashes, bruising, erythema noted to the patient's area of pain. Extremities- extremities are warm with minimal edema and palpable pulses. Lumbar-no significant tenderness to palpation noted in the lumbar spine and paraspinal musculature.? Pain is elicited with extension, and lateral rotation of the lumbar spine. Range of motion is slightly diminished with these motions due to pain. Coordination remains intact.? Gait remains non-antalgic. Assessment and Plan Assessment and Plan (1) Lumbar postlaminectomy syndrome: Plan 84yof who presents for assessment. endorses worsening pain in low back, legs. will have scs rep evaluation stim and adjust settings to optimize. she is in agreement. meds reviewed. will continue percocet as before. follow up in 3 months or sooner, if needed.
== END 2025-06-27 15:12 | disposition home or self-care (01) ==
LOC: PM 15:11
PROVIDERS: PCP Family Medicine; Visit Provider Anesthesiology
DX: M96.1 Postlaminectomy syndrome, not elsewhere classified (principal)
CPT/HCPCS: G0463

== ENCOUNTER 2025-06-28 12:57 | Outpatient (RCR) | payer MEDICARE, SELFPAY ==
[2025-06-28 13:11] LABS: Hematocrit 39.8 % (36.0-48.0); Hemoglobin 12.8 g/dL (12.0-16.0); Mean Corpuscular HGB Conc 32.2 g/dL (29.9-35.2); Mean Corpuscular Hemoglobin 29.2 pg (26.7-34.0); Mean Corpuscular Volume 90.7 fL (81.0-99.0); Platelet Count 235 10^3/uL (150-450); Red Blood Count 4.39 10^6/uL (4.20-5.40); White Blood Count 18.9 10^3/uL (4.0-11.0)
[2025-06-28 13:28] LABS: Alanine Aminotransferase 29 U/L (14-59); Albumin Globulin Ratio 1.0; Albumin Level 3.4 g/dL (3.4-5.0); Alkaline Phosphatase 99 U/L (46-116); Anion Gap 8.6; Aspartate Amino Transferase 23 U/L (15-37); Blood Urea Nitrogen 22.0 mg/dL (7.0-18.0); Calcium 9.0 mg/dL (8.5-10.1); Carbon Dioxide 30.7 mmol/L (21.0-32.0); Chloride 108 mmol/L (98-107); Estimated GFR (African America 59 (>=60 mL/min/1.73m^2); Estimated GFR (Non-African Ame 49 (>=60 mL/min/1.73m^2); Globulin 3.3 g/dL; Glucose 121 mg/dL (74-106); Potassium 5.3 mmol/L (3.5-5.1); Sodium 142 mmol/L (136-145); Total Protein 6.7 g/dL (6.4-8.2)
[2025-06-28 13:40] LABS: Atypical Lymphocytes % Manual 2.0 %; Atypical Lymphocytes Abs Man 0.37; Basophils Abs Manual 0.37 10^3/uL (0.00-0.10); Basophils Percent Manual 2.0 % (0.2-2.0); Eosinophils Absolute Manual 0.56 10^3/uL (0.00-0.70); Eosinophils Percent Manual 3.0 % (0.9-7.0); Lymphocytes Absolute Manual 12.47 10^3/uL (1.20-3.80); Lymphocytes Percent Manual 66.0 % (20.5-60.0); Monocytes Absolute Manual 0.75 10^3/uL (0.30-0.80); Monocytes Percent Manual 4.0 % (1.7-12.0); Segmented Neut Absolute Manual 4.34 10^3/uL (1.4-6.5); Segmented Neutrophils % Manual 23.0 (43.0-75.0)
== END 2025-07-13 23:59 | disposition home or self-care (01) ==
LOC: HEMC 12:57
PROVIDERS: PCP Family Medicine; Visit Provider Internal Medicine Hematology & Oncology
DX: C91.10 Chronic lymphocytic leukemia of B-cell type not having achieved remission (principal); D47.9 Neoplasm of uncertain behavior of lymphoid, hematopoietic and related tissue, unspecified; M79.7 Fibromyalgia; R53.82 Chronic fatigue, unspecified; Z87.440 Personal history of urinary (tract) infections; M54.9 Dorsalgia, unspecified; G89.29 Other chronic pain; N18.2 Chronic kidney disease, stage 2 (mild)
CPT/HCPCS: 36415; 80053; 83615; 85007; 85027; G0463

== ENCOUNTER 2025-07-11 23:40 | Emergency (ER) | payer MEDICARE, SELFPAY ==
--- OUTSIDE RECORDS SUMMARY | 2024-08-03 08:30 | XMS_ITS ---
Author Organization [facility] Address [address] [place] [address] [place] [address] Care Team Providers Care Gettering Operator Name Role Phone Dmitriy Presley DO Primary Care Provider Unavailab Willy Davis Unavailable [phone] REASON FOR VISIT rfc Encounters Encounter Location Date Provider Diagnosis [facility] [address] Angela [address] [place] [address] 08/03/2024 Willy Schwarz Plan Of Treatment No Information Progress Notes * Viki WASHBURNOB: 2 (85 yo F)Acc No.[id number]:08/03/2024 Patient:?Maddison, Kathy :?JENNIFER BeachMDOB:1940???Age:84 Y???Sex: FemaleDate:08/03/2024Phone:Address:[address] [place], [place] [id number]: Dmitriy Presley DO Subjective: * Chief Complaints: * R fc * Electronic signature of Willy Schwarz DPM on 07/12/2025 at 12:14 AM ESTSign off status: Pending * Provider: Wilfredo Schwarz DPM Date: 0 08/03/2024 Generated for Printing/Faxing/eTransmitting on:?07/12/2025 12:14 AM EST
--- OUTSIDE RECORDS SUMMARY | 2024-11-30 03:45 | XMS_ITS ---
Author Organization [facility] in [place] Address [address] [place] [address] Care Team Providers Care Bobbin Hauler Name Role Phone Dmitriy Presley DO Primary Care Provider Unavailab Carolin Blas Unavailable [phone] REASON FOR VISIT New PT Onc Encounters Encounter Location Date Provider Diagnosis [facility] [address] [place] [address] 11/30/2024 Carolin Dubon Plan Of Treatment No Information Progress Notes * Mary Carmen WASHBURNRoselineOB: 2 (85 yo F)Acc No.[id number]:11/30/2024 UNLOCKED PROGRESS NOTE Progress Notes Patient: Kathy GUILLEN :Sukh Silva M.D.:1940???Age:84 Y ???Sex:FemaleDate:11/30/2024Phone:[phone]:[facility] [place], [id number]:Dmitriy Presley DO Subjective: * Chief Complaints: * 1 . New PT Onc. * Medical History: Objective: * Vitals: Assessment: Plan: * Treatment: * * Electronic signature of Carolin Dubon MD, [id number] on 07/12/2025 at 12:15 AM ESTSign off status: PendingVisit Status:?PEN (Pending) * Provider: Rolo Silva M.D. Date: 0 11/30/2024 Generated for Printing/Faxing/eTransmitting on:?07/12/2025 12:15 AM EST
--- OUTSIDE RECORDS SUMMARY | 2025-02-22 08:15 | XMS_ITS ---
Author Organization The [facility] in [place] Address [address] [place] [address] Care Team Providers Care Collection Support Specialist Name Role Phone Dmitriy Presley DO Primary Care Provider Unavailab Carolin Blas Unavailable [phone] REASON FOR VISIT MD Encounters Encounter Location Date Provider Diagnosis The [facility] Oncology [address] [place] [address] 02/22/2025 Carolin Dubon Plan Of Treatment No Information Progress Notes * Viki WASHBURNOB: 2 (85 yo F)Acc No.[id number]:02/22/2025 UNLOCKED PROGRESS NOTE Progress Notes Patient: Kathy GUILLEN :Sukh Silva M.D.:1940???Age:84 Y ???Sex:FemaleDate:02/22/2025Phone:[phone]:[address], [place], [place]Zls:Dmitriy Presley DO Subjective: * Chief Complaints: * 1 . MD. * Medical History: Objective: * Vitals: Assessment: Plan: * Treatment: * * Electronic signature of Carolin Dubon MD, [id number] on 07/12/2025 at 12:15 AM ESTSign off status: PendingVisit Status:?CANC (Cancelled) * Provider: Rolo Silva M.D. Date: 0 02/22/2025 Generated for Printing/Faxing/eTransmitting on:?07/12/2025 12:15 AM EST
--- OUTSIDE RECORDS SUMMARY | 2025-03-01 06:45 | XMS_ITS ---
Author Organization The [facility] in [place] Address [address] [place] [address] Care Team Providers Care Meal Cooker Name Role Phone Dmitriy Presley DO Primary Care Provider Unavailab Carolin Blas Unavailable [phone] REASON FOR VISIT MD Encounters Encounter Location Date Provider Diagnosis The [facility] Oncology [address] [place] [address] 03/01/2025 Carolin Dubon Plan Of Treatment No Information Progress Notes * Mary Carmen WASHBURNRoselineOB: 2 (85 yo F)Acc No.[id number]:03/01/2025 UNLOCKED PROGRESS NOTE Progress Notes Patient: Kathy GUILLEN :Sukh Silva M.D.:1940???Age:84 Y ???Sex:FemaleDate:03/01/2025Phone:[phone]:[address], [place], [place]-[address]Bmt:Dmitriy Presley DO Subjective: * Chief Complaints: * 1 . MD. * Medical History: Objective: * Vitals: Assessment: Plan: * Treatment: * * Electronic signature of Carolin Dubon MD, [id number] on 07/12/2025 at 12:15 AM ESTSign off status: PendingVisit Status:?PEN (Pending) * Provider: Rolo Silva M.D. Date: 0 03/01/2025 Generated for Printing/Faxing/eTransmitting on:?07/12/2025 12:15 AM EST
--- OUTSIDE RECORDS SUMMARY | 2025-05-10 10:15 | XMS_ITS ---
Author Organization [facility] Address [address] [place] [address] [place] [address] Care Team Providers Care Stereo Plotter Operator Name Role Phone Dmitriy Presley DO Primary Care Provider Unavailab Willy Davis Unavailable [phone] REASON FOR VISIT rfc Encounters Encounter Location Date Provider Diagnosis [facility] [address] Angela peoples [place] [address] 05/10/2025 Willy Schwarz Plan Of Treatment No Information Progress Notes * Viki WASHBURNOB: 2 (85 yo F)Acc No.[id number]:05/10/2025 Patient:?Maddison, Kathy :?JENNIFER BeachMDOB:1940???Age:84 Y???Sex: FemaleDate:05/10/2025Phone:Address:[address] [place], [place] [id number]: Dmitriy Presley DO Subjective: * Chief Complaints: * R fc * Electronic signature of Willy Schwarz DPM on 07/12/2025 at 12:14 AM ESTSign off status: Pending * Provider: Wilfredo Schwarz DPM Date: 1 Generated for Printing/Faxing/eTransmitting on:?07/12/2025 12:14 AM EST
--- OUTSIDE RECORDS SUMMARY | 2025-06-28 08:00 | XMS_ITS ---
Author Organization [facility] [place] Address [address] [place] [address] Care Team Providers Care Register Of Wills Name Role Phone Dmitriy Presley DO Primary Care Provider Unavailab BASILIO Bueno Unavailable [phone] REASON FOR VISIT MD Encounters Encounter Location Date Provider Diagnosis [facility] [address] [place] [id number] 06/28/2025 BASILIO GARZA Plan Of Treatment No Information Progress Notes * Viki WASHBURNOB: 2 (85 yo F)Acc No.[id number]:06/28/2025 UNLOCKED PROGRESS NOTE Progress Notes Patient: Kathy GUILLEN :DERREK GARZA M.D.:1940???Age:84 Y ???Sex:FemaleDate:06/28/2025Phone:[phone]:[address], [id number]:Dmitriy Presley DO Subjective: * Chief Complaints: * 1 . MD. * Medical History: Objective: * Vitals: Assessment: Plan: * Treatment: * * Electronic signature of BASILIO GARZA MD on 07/12/2025 at 12:14 AM ESTSign off status: PendingVisit Status:?VOICEMSG (Voice) * Provider: Rolo GARZA M.D. Date: 1 08/29/2024 Generated for Printing/Faxing/eTransmitting on:?07/12/2025 12:14 AM EST
[2025-07-11 23:53] VITALS: BP 140/82; PULSE 77; TEMP 36.8; O2SAT 94; BMI 33.7
[2025-07-12] VITALS (11 sets, daily range): BP systolic 105–127; BP diastolic 57–72; O2SAT 85–94
--- NOTE | 2025-07-12 00:09 | ED.GENADUL1 ---
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 presents for evaluation of pain in her joints. The patient states that she has shoulder pain and elbow pain. She states it feels like the muscles around these joints are in spasm. She does have a prescription for Percocet and states she typically only takes 1 a day but today had to take 3. She has had some chills and sweats with mild nausea but no vomiting or diarrhea. She denies any chest pain or shortness of breath. She denies any flank pain or urinary symptoms but states she does get urinary tract infections quite a bit. The patient did attend family gatherings over the holiday. She is not having any sore throat or nasal congestion. She also has some swelling of her feet and ankle areas. She does not have any calf swelling or tenderness. Related Data Home Medications ?Medication ?Instructions ?Recorded ?Confirmed B-complex with vitamin C 1 tab PO DAILY 08/25/23 07/11/25 aspirin 81 mg tablet,delayed 81 mg PO DAILY 08/25/23 07/11/25 release atorvastatin 20 mg tablet (Lipitor) 20 mg PO DAILY 08/25/23 07/11/25 cholecalciferol (vitamin D3) 125 125 mcg PO DAILY 08/25/23 07/11/25 mcg (5,000 unit) capsule ezetimibe 10 mg tablet (Zetia) 10 mg PO DAILY 08/25/23 07/11/25 levothyroxine 100 mcg tablet 100 mcg PO DAILY 08/25/23 07/11/25 (Synthroid) lisinopril 10 mg tablet 10 mg PO DAILY 08/25/23 07/11/25 multivitamin 1 tab PO DAILY 08/25/23 07/11/25 oxycodone-acetaminophen 5 mg-325 1 tab PO BID PRN pain 08/25/23 07/11/25 mg tablet pregabalin 225 mg capsule (Lyrica) 225 mg PO BID 08/25/23 07/11/25 propranolol 60 mg tablet 60 mg PO DAILY 08/25/23 07/11/25 triamterene 37.5 1 tab PO DAILY 08/25/23 07/11/25 mg-hydrochlorothiazide 25 mg tablet (Maxzide-25mg) venlafaxine 75 mg capsule,extended 75 mg PO DAILY 08/25/23 07/11/25 release 24 hr (Effexor XR) zolpidem 5 mg tablet 5 mg PO DAILY 08/25/23 07/11/25 insulin glargine 100 unit/mL (3 36 unit subcut QPM 02/09/25 07/11/25 mL) subcutaneous pen (Lantus Solostar U-100 Insulin) magnesium oxide 400 mg (241.3 mg 400 mg PO DAILY 02/09/25 07/11/25 magnesium) tablet metformin 1,000 mg tablet 1,000 mg PO BID 03/16/25 07/11/25 Allergies Allergy/AdvReac Type Severity Reaction Status Date / Time cefpodoxime (From Vantin) Allergy Unknown Unknown Verified 07/11/25 23:52 Opioid HPI Opioid Management Most Recent Opioid Data: Last Pain Scale 7 Today, 00:44 Last MAR Pain Assessment Today, 00:44 Review of Systems ROS Status of ROS 10 or more systems reviewed and unremarkable except as noted in history and below [facility] Medical History Post laminectomy syndrome ?M96.1 - Postlaminectomy syndrome, not elsewhere classified (ICD-10) Failed back syndrome ?M96.1 - Postlaminectomy syndrome, not elsewhere classified (ICD-10) History of blood transfusion ?Z92.89 - Personal history of other medical treatment (ICD-10) Chronic kidney disease ?N18.9 - Chronic kidney disease, unspecified (ICD-10) Extremity edema ?R60.0 - Localized edema (ICD-10) Activity intolerance ?R68.89 - Other general symptoms and signs (ICD-10) Fibromyalgia ?M79.7 - Fibromyalgia (ICD-10) Irritable bowel syndrome with diarrhea ?K58.0 - Irritable bowel syndrome with diarrhea (ICD-10) Leukocytosis ?D72.829 - Elevated white blood cell count, unspecified (ICD-10) Leukemia ?C95.90 - Leukemia, unspecified not having achieved remission (ICD-10) Lung nodule ?R91.1 - Solitary pulmonary nodule (ICD-10) Migraine ?G43.909 - Migraine, unspecified, not intractable, without status migrainosus (ICD-10) Insomnia ?G47.00 - Insomnia, unspecified (ICD-10) Depression ?F32.A - Depression, unspecified (ICD-10) Hypothyroidism (acquired) ?E03.9 - Hypothyroidism, unspecified (ICD-10) Chronic back pain ?M54.9 - Dorsalgia, unspecified (ICD-10) ?G89.29 - Other chronic pain (ICD-10) Hyperlipidemia ?E78.5 - Hyperlipidemia, unspecified (ICD-10) Anemia ?D64.9 - Anemia, unspecified (ICD-10) Osteoarthritis ?M19.90 - Unspecified osteoarthritis, unspecified site (ICD-10) Chronic lymphocytic leukemia ?C91.10 - Chronic lymphocytic leukemia of B-cell type not having achieved remission (ICD-10) Diabetes ?E11.9 - Type 2 diabetes mellitus without complications (ICD-10) Former smoker ?Z87.891 - Personal history of nicotine dependence (ICD-10) High cholesterol ?E78.00 - Pure hypercholesterolemia, unspecified (ICD-10) Hypertension ?I10 - Essential (primary) hypertension (ICD-10) Surgical History History of radiofrequency ablation (RFA) of nerve of lumbar spine ?Z98.890 - Other specified postprocedural states (ICD-10) S/P epidural steroid injection ?Z92.241 - Personal history of systemic steroid therapy (ICD-10) History of cataract extraction with lens replacement History of appendectomy ?Z90.49 - Acquired absence of other specified parts of digestive tract (ICD-10) H/O colonoscopy ?Z98.890 - Other specified postprocedural states (ICD-10) History of total knee arthroplasty ?Z96.659 - Presence of unspecified artificial knee joint (ICD-10) History of hernia repair ?Z98.890 - Other specified postprocedural states (ICD-10) ?Z87.19 - Personal history of other diseases of the digestive system (ICD-10) S/P lumbar fusion ?Z98.1 - Arthrodesis status (ICD-10) S/P hernia surgery ?Z98.890 - Other specified postprocedural states (ICD-10) ?Z87.19 - Personal history of other diseases of the digestive system (ICD-10) H/O: hysterectomy ?Z90.710 - Acquired absence of both cervix and uterus (ICD-10) Family History Other Family history of Parkinson disease Family history of cancer Family history of hypertension Family history of myocardial infarction Family history of stroke Heart disease Social History Within the past year, how often did you have a drink containing alcohol: monthly or less Smoking status: Never smoker Non-prescribed substance use: denies use Highest level of school completed/degree received: high school graduate Little interest or pleasure in doing things: not at all Feeling down, depressed, or hopeless: not at all Exam Narrative Exam Narrative: Vital signs and Nursing Notes reviewed: Patient is afebrile with a normal pulse, blood pressure is mildly elevated 140/82, she is not hypoxic with pulse ox of 94% on room air General: Awake, alert, oriented, no acute distress, lying comfortably on the qjqvalwon-zmtd-gxuntosjj elderly female HEENT: Normocephalic atraumatic, mucous membranes are moist and pink, eyes are clear, normal conjunctiva, vision is grossly intact, posterior pharynx is normal in appearance. Neck: Supple, no meningeal signs, no anterior or posterior cervical lymphadenopathy Chest: Lungs are clear to auscultation with good air entry, there is no wheezing rhonchi or rales appreciated no accessory muscle use, patient is speaking in complete sentences-no chest wall tenderness to palpation CVS: Regular rate and rhythm S1-S2, no murmurs rubs or gallops, pulses are brisk and equal bilaterally ABD: Soft, nondistended, nontender, no rebound guarding or rigidity, bowel sounds are normal, no pulsatile masses appreciated Extremities: Moving all extremities, no redness or swelling of her joints noted, feet are warm and sensate, there is 1-2+ edema of the feet and ankles which does not extend past the ankles, there is no calf swelling or tenderness noted Skin: Normal in appearance without rash,pallor, petechiae or purpura Neuro: No focal deficits Constitutional Vital Signs, click to edit/add: Last Vital Signs Temp 98.2 F 07/11/25 23:53 Pulse 77 07/11/25 23:53 Resp 19 07/11/25 23:53 BP 117/64 07/12/25 01:32 Pulse Ox 88 L 07/12/25 01:32 O2 Del Method Room Air 07/11/25 23:53 Course Vital Signs Vital signs: Vital Signs Temperature 98.2 F 07/11/25 23:53 Pulse Rate 77 07/11/25 23:53 Respiratory Rate 19 07/11/25 23:53 Blood Pressure 140/82 07/11/25 23:53 Pulse Oximetry 94 L 07/11/25 23:53 Oxygen Delivery Method Room Air 07/11/25 23:53 Temperature 98.2 F 07/11/25 23:53 Pulse Rate 77 07/11/25 23:53 Respiratory Rate 19 07/11/25 23:53 Blood Pressure 117/64 07/12/25 01:32 Pulse Oximetry 88 L 07/12/25 01:32 Oxygen Delivery Method Room Air 07/11/25 23:53 Medical Decision Making MDM Narrative Medical decision making narrative: This 85-year-old female with a history of CLL who is in pain management and has multiple musculoskeletal diagnoses presents for evaluation of joint pain mostly in her shoulders and elbows less so in her knees and hips. She denies any recent injury. Her symptoms have been present for the past several days but tonight they became more severe prompting her to call her neighbor to bring her to the hospital. She has had some mild chills and nausea. In emergency department she was afebrile. She denies any chest pain or shortness of breath. She is not having any GI symptoms. She did go to Holiday gatherings over the iday. She does not have any redness or swelling of her joints. She has full range of motion. She does have some mild swelling of her feet and ankles bilaterally with no calf swelling or tenderness. She states her symptoms were such that she had to take 3 Percocet today and typically only takes 1. The patient is a well-appearing elderly female, she is not in any distress. Her vital signs are stable. An IV is placed and she was medicated with gentle IV hydration, Zofran for her nausea and 30 of Toradol. Routine labs were ordered. She has not white count of 17.9 which is stable for her hemoglobin is stable at 12.4. Lactic acid is normal. Electrolytes are normal elevation in her BUN and creatinine of 6 and 1.39. She is negative for influenza and COVID-19. Urinalysis shows 5-10 white blood cells per high-power field but this is asymptomatic and culture is pending at this time. Troponin and BNP were both normal. CRP is less than 0.5. Chest x-ray does not show any acute findings. Evaluation she states she is feeling much better and feels comfortable being discharged home. She will be discharged with a prescription for ibuprofen to use in addition to her other pain medications. She was encouraged to rest, drink plenty of fluids and return to the emergency department as needed for ongoing or worsening symptoms or any concerns. Lab Data Labs: Lab Results 07/12/25 07/12/25 07/12/25 Range/Units 00:18 00:30 00:50 WBC 17.9 H (4.0-11.0) 10^3/uL RBC 4.17 L (4.20-5.40) 10^6/uL Hgb 12.4 (12.0-16.0) g/dL Hct 37.9 (36.0-48.0) % MCV 90.9 (81.0-99.0) fL MCH 29.7 (26.7-34.0) pg MCHC 32.7 (29.9-35.2) g/dL RDW 14.6 (11.0-15.0) % Plt Count 221 (150-450) 10^3/uL MPV 11.1 (9.5-13.5) fL Seg Neuts % (Manual) 23.0 L (43.0-75.0) Lymphocytes % (Manual) 27.0 (20.5-60.0) % Atypical Lymphs % (Man) 41.0 % Monocytes % (Manual) 4.0 (1.7-12.0) % Eosinophils % (Manual) 5.0 (0.9-7.0) % Basophils % (Manual) 0.0 L (0.2-2.0) % Neutrophils # (Manual) 4.11 (1.4-6.5) 10^3/uL Lymphocytes # (Manual) 4.83 H (1.20-3.80) 10^3/uL Abs Atypical Lymphs Man 7.33 Monocytes # (Manual) 0.71 (0.30-0.80) 10^3/uL Eosinophils # (Manual) 0.89 H (0.00-0.70) 10^3/uL Basophils # (Manual) 0.00 (0.00-0.10) 10^3/uL Smudge Cells Seen Schistocytes 2+ Sodium 141 (136-145) mmol/L Potassium 4.8 (3.5-5.1) mmol/L Chloride 107 (98-107) mmol/L Carbon Dioxide 29.0 (21.0-32.0) mmol/L Anion Gap 9.8 BUN 36.0 H (7.0-18.0) mg/dL Creatinine 1.39 H (0.55-1.02) mg/dL Est GFR ( Amer) 44 L (>=60 mL/min/1.73m^2) Est GFR (Non-Af Amer) 36 L (>=60 mL/min/1.73m^2) BUN/Creatinine Ratio 25.9 Glucose 91 (74-106) mg/dL Lactate 1.4 (0.4-2.0) mmol/L Calcium 9.0 (8.5-10.1) mg/dL Total Bilirubin 0.2 (0.2-1.0) mg/dL AST 24 (15-37) U/L ALT 32 (14-59) U/L Alkaline Phosphatase 115 (46-116) U/L Troponin I High Sens 8.3 (4.0-51.3) pg/mL C-Reactive Protein <0.50 (<=0.50) mg/dL NT-Pro-B Natriuret Pep 58.0 (<=1800.0) pg/mL Total Protein 6.8 (6.4-8.2) g/dL Albumin 3.6 (3.4-5.0) g/dL Globulin 3.2 g/dL Albumin/Globulin Ratio 1.1 Urine Color Lt. yellow (YELLOW) Urine Clarity Clear (CLEAR) Urine pH 5.5 (5.0-9.0) Ur Specific [place] 1.025 (1.005-1.025) Urine Protein Negative (NEG/TRACE) mg/dL Urine Glucose (UA) Negative (NEGATIVE) mg/dL Urine Ketones Negative (NEGATIVE) mg/dL Urine Occult Blood Negative (NEGATIVE) Urine Nitrite Negative (NEGATIVE) Urine Bilirubin Negative (NEGATIVE) Urine Urobilinogen 0.2 (0.2-1.0) EU/dL Ur Leukocyte Esterase Negative (NEGATIVE) Urine RBC 0-2 (0-2) #/HPF Urine WBC 5-10 A (NONE SEEN) #/HPF Ur Squamous Epith Cells Rare (NONE/RARE) #/LPF Urine Crystals None seen (None Seen) #/HPF Urine Bacteria Small A (NONE SEEN) #/HPF Urine Casts None seen (NONE SEEN) #/LPF Urine Mucus None seen (NONE SEEN) Ur [place] Indicated[place] [place] Type A Ag Negative Influenza Type B Ag Negative SARS-CoV-2 Ag (CV2AG) Negative (NEGATIVE) Discharge Plan Discharge Chief Complaint: Extremity Problem, Nontraumatic Clinical Impression: Arthralgia, Myalgia Patient Disposition: Home, Self-Care Time of Disposition Decision: 01:39 Condition: Good Prescriptions / Home Meds: No Action lisinopril 10 mg tablet 10 mg PO DAILY pregabalin [Lyrica] 225 mg capsule 225 mg PO BID atorvastatin [Lipitor] 20 mg tablet 20 mg PO DAILY venlafaxine [Effexor XR] 75 mg capsule,extended release 24hr 75 mg PO DAILY triamterene-hydrochlorothiazid [Maxzide-25mg] 37.5-25 mg tablet 1 tab PO DAILY ezetimibe [Zetia] 10 mg tablet 10 mg PO DAILY aspirin 81 mg tablet,delayed release (DR/EC) 81 mg PO DAILY levothyroxine [Synthroid] 100 mcg tablet 100 mcg PO DAILY propranolol 60 mg tablet 60 mg PO DAILY multivitamin Tablet 1 tab PO DAILY oxycodone-acetaminophen 5-325 mg tablet 1 tab PO BID PRN (Reason: pain) zolpidem 5 mg tablet 5 mg PO DAILY B-complex with vitamin C Tablet 1 tab PO DAILY cholecalciferol (vitamin D3) 125 mcg (5,000 unit) capsule 125 mcg PO DAILY magnesium oxide 400 mg (241.3 mg magnesium) tablet 400 mg PO DAILY insulin glargine [Lantus Solostar U-100 Insulin] 100 unit/mL (3 mL) insulin pen 36 unit SUBCUT QPM metformin 1,000 mg tablet 1,000 mg PO BID Print Language: Ugandan Instructions: Musculoskeletal Pain (ED), Arthralgia (ED) Referrals: AYANNA VICENTE [Primary Care Provider, Family Practice] - 1 week
--- OUTSIDE RECORDS SUMMARY | 2025-07-12 00:14 | XMS_ITS | Clinical Summary ---
Author Organization [facility] Address [address], [address] [place] [address] Care Team Providers Care General Ledger Accountant Name Role Phone Dmitriy Presley DO Primary Care Provider Unavail able Allergies Active AllergyReactionsCriticalityNoted CyndOaludfogRirxhawdtxcusg35/06/2019 Bvqbexvxvza90/06/2019 Medications MedicationSigDispense QuantityRefillsLast FilledStart DateEnd DateStatus methylPREDNISolone [...] InformationValueDate RecordedSex Assigned at BirthNot on fileLegal InoRxavoq29/12/2013 4:04 AM EST Gender IdentityNot on fileSexual OrientationNot on file Last Filed Vital Signs Vital SignReadingTime TakenCommentsBlood Pressure--Pulse--Tipdmkqzawi51 ??C (96.8 ??F)06/18/2019 10:09 AM ESTRespiratory Rate--Oxygen Saturation--Inhaled Oxygen Concentration--Atupbg809.6 kg (235 lb)06/18/2019 10:09 AM QTPNznhmo734.8 cm (5' 10 )06/18/2019 10:09 AM ESTBody Mass Index33.7206/18/2019 10:09 AM EST Plan of Treatment Not on file Insurance Care Teams Team MemberRelationshipSpecialtyStart DateEnd Date Dmitriy Presley DO [facility]
--- OUTSIDE RECORDS SUMMARY | 2025-07-12 00:14 | XMS_ITS | Patient Health Record ---
Author Organization [facility] [place] Address [address] [place] [address] Care Team Providers Care Otr Driver Name Role Phone Dmitriy Presley DO Primary Care Provider Unavailab Martin Blasorva Unavailable [phone] MARTIN GARZAORVA Unavailable [phone] Reason For Referral No Information Encounters Encounter Location Date Provider Diagnosis [facility] [address] [place] [address] 11/30/2024 Carolin zzChawla [facility] [address] [place] [address]/ [facility] [address] [place] [address]/16/2025POORVA GREG Plan Of Treatment No Information Insurance Providers Payer Name Payer Address Payer Phone Subscriber Number Group Number Insured Name Patient Relationship to Insured Coverage Start Date Coverage End Date [place]IC[place] [address] [place] [address] [id number] Adriel Washburn - patient is the [id number] [address] [facility] [place] [id number], SandraSelf - patient is the [id number] 2007
--- OUTSIDE RECORDS SUMMARY | 2025-07-12 00:14 | XMS_ITS | Clinical Summary ---
Author Organization [facility] Address [address] [place] [address] Phone Care Team Providers Care Staff Trainer Name Role Phone Dmitriy Presley DO Primary Care Provider [phone] Social History Tobacco UseTypesPacks/DayYears UsedDateSmoking Tobacco: Never Assessed CommentsUnknownSex and Gender InformationValueDate RecordedSex Assigned at Not on fileLegal FhlUexnee28/25/2022 3:02 PM ESTGender IdentityNot on fileSexual OrientationNot on file Plan of Treatment Health MaintenanceDue DateLast DoneCommentsLipid Panel1942Yearly Adult Dolwvgzy1942DTaP/Tdap/Td Vaccines (1 - Tdap)1964Zoster Vaccines (1 of 2)1992Bone Density Scan2007RSV High Risk: (Elderly (60+) or Population) (1 - 1-dose 75+ series)2017Pneumococcal Vaccine (2 of 2 - PCV)/04/2022, 04/03/2019COVID-19 Vaccine (1 - season) 2025Influenza Vaccine (#1)/12/2021, 04/04/2021, 03/27/2020, Additional history existsHIB VaccinesAged OutNo longer eligible [...] DateEnd Date Dmitriy Presley DO PCP - Gbmgdkr02/31/18
--- OUTSIDE RECORDS SUMMARY | 2025-07-12 00:15 | XMS_ITS | Clinical Summary ---
Author Organization [facility] Address [address] [place] [address] Care Team Providers Care Accident Examiner Name Role Phone Dmitriy Presley DO Primary Care Provider [phone] Dmitriy Presley DO Unavailable [phone] Dmitriy Presley DO Unavailable [phone] Allergies Active AllergyReactionsCriticalityNoted DateCommentsCephalosporinsHives,Swelling 02/20/20040724WbjykjhscwlUvzqmrl43/21/2022 Medications MedicationSigDispense QuantityRefillsLast FilledStart DateEnd DateStatus LASIX [...] drink = 0.6 oz pure alcohol)PHQ-2AnswerDate RecordedPHQ-2 kwijx493rea Deprivation IndexAnswerDate RecordedNational Score (1-100), lower number is lower risk61 02/07/2023State Score (1-10), lower number is lower zxbw782ata from: https://www.neighborhoodatlas.medicine.[facility].edu/. Last address used for [address] [facility]02/07/2023CommentsNoSex and Gender InformationValueDate RecordedSex Assigned at WwrpnVmkomn77/13/2021 3:09 PM EDT Legal VdxAadpaz83/02/2012 8:47 AM ESTGender IdentityNot on fileSexual OrientationNot on file Last Filed Vital Signs Vital SignReadingTime TakenCommentsBlood Wuniurmr882/7106 10:27 AM EDT Gglbe0428 1:54 PM MLQZwkrwzcodqf55.3 ??C (67 ??F)12/17/2024 10:27 AM EDT Respiratory Hgfw039807/26/2023 1:54 PM ESTOxygen Zlrwkjtjrs30%05/26/2024 1:54 PM ESTInhaled Oxygen Concentration--Gdygcs450.6 kg (228 lb 6.3 oz)12/17/2024 10:27 AM AETHicwsg788.7 cm (5' 7.99 )12/17/2024 10:27 AM EDTBody Mass Index34.74 12/17/2024 10:27 AM EDT Plan of Treatment DateTypeDepartmentCare Team (Latest Contact Info)Tukrorkplqw39/06/2026 11:20 AM ESTOffice Visit Rheumatology [id number] [place] [address] [place] [address] [facility] [place] [address] referred by Oncologist for different kind of joint and muscular pain12/19/2025 11:00 AM EDTOffice Visit Rheumatology [address] [place] [address] [place] [address] [place] [address] [facility] [place] [address] Return in about 1 year (around 12/17/2025).Health MaintenanceDue DateLast Done KwclyimgCbO0G44/21/1947Diabetic Foot Exam2Dilated Retinal Exam 1952Urine Albumin:Creatinine Ratio2Anxiety Vijkzizlu66/21/1960 Depression Pjkhmtdau35/21/1960LDL Rfebnxutmwd50/21/1960Medicare Annual Wellness Visit06/13/2007Bone Density Nxtnmdwll41/21/2007Shingrix Vaccine (2 of 2) 412/dvance Directive Lemvaofonf70/01/2025Covid-19 Vaccine ( season)509/12/2023, 06/23/2023, 04/18/2022, Additional history existsInfluenza Vaccine (#1)509/12/2023, 04/15/2023, 04/25/2021, Additional history existsDTaP,Tdap,Td Vaccine (2 - Td or Tdap)01/14/2032 01/13/2022neumococcal Vaccine: 50+Ikkgxxwqw91/11/2023, 04/22/2022, 07/14/2019, Additional history existsRSV CpgrxviTfftzkapv11/11/2023 Insurance Care Teams Team MemberRelationshipSpecialtyStart DateEnd Date Dmitriy Presley DO [address] [place] [address] PCP - GeneralFamily Medicine08/01/11 Dmitriy Presley DO [address] [place] [address] ReferringFamily Medicine10/04/20 Dmitriy Presley DO [address] [place] [address] ReferringFamily Medicine01/09/21
--- OUTSIDE RECORDS SUMMARY | 2025-07-12 00:15 | XMS_ITS | Patient Health Record ---
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) ActiveconfirmedProblemPolyneuropathy due to type 2 diabetes mellitus (462416760) Type 2 diabetes mellitus with diabetic polyneuropathy (E11.42)Activeconfirmed ProblemType 2 diabetes mellitus with peripheral angiopathy (296909970)Type 2 diabetes mellitus with diabetic peripheral angiopathy without gangrene (E11.51) ActiveconfirmedProblemDilatation of aorta (80403987)Thoracic aortic ectasia (I77.810)ActiveconfirmedProblemRheumatoid arthritis (75179781)Rheumatoid arthritis, unspecified (M06.9)ActiveconfirmedProblemTinea unguium (913968839) Tinea unguium (B35.1)ActiveconfirmedProblemImmunodeficiency disorder (disorder) (741424513)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) ActiveconfirmedProblemChronic kidney disease stage 3B (disorder) (710364275) Chronic kidney disease, stage 3b (N18.32)Activeconfirmed Vital Signs Blood pressure diastolic 78 mm Hg 05/19/2025 Svmgxc40 in05/19/2025lood pressure jkymwaxv689 mm Hg05/19/20254225Ivgwnu151 lbs 02/08/2025BMI34.26002/08/2025 Encounters Encounter Location Date Provider Diagnosis [facility] [address] [place] [address] 08/10/2024 Willy Schwarz Tinea unguium B35.1 ; Type 2 diabetes mellitus with diabetic peripheral angiopathy without gangrene E11.51 ; Type 2 diabetes mellitus with diabetic polyneuropathy E11.42 ; Chronic lymphocytic leukemia of B-cell type not having achieved remission C91.10 ; Rheumatoid arthritis, unspecified M06.9 and Immunodeficiency due to conditions classified elsewhere D84.81 [facility] [address] [place] [address] 11/09/2024 Willy Schwarz Tinea unguium B35.1 ; Type 2 diabetes mellitus with diabetic peripheral angiopathy without gangrene E11.51 ; Type 2 diabetes mellitus with diabetic polyneuropathy E11.42 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 Z79.84 [facility] [address] [place] [address] 02/08/2025 Willy Schwarz Tinea unguium B35.1 ; Type 2 diabetes mellitus with diabetic peripheral angiopathy without gangrene E11.51 ; Type 2 diabetes mellitus with diabetic polyneuropathy E11.42 ; assisted (current) use of oral hypoglycemic drugs Z79.84 ; Chronic kidney disease, stage 3b N18.32 and Thoracic aortic ectasia I77.810 [facility] [address] [place] [address] 05/19/2025 Willy Schwarz Tinea unguium B35.1 ; Type 2 diabetes mellitus with diabetic peripheral angiopathy without gangrene E11.51 ; Type 2 diabetes mellitus with diabetic polyneuropathy E11.42 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 Z79.84 [...] End Date Medicare Part B J-15 Part [facility] Claims [address] [place] [address] [id number], Adriel - [facility] the [facility] [address] [place] [id number], Mary CarmenMelyssaelf - patient is the insured Medical (General) History Medical History History ICD Code Type II diabetes leukemiahypertensionosteoarthritisfibromyalgiaThyroid diseaseHypercholestrolemia Surgical History Surgery Date(Month/Year) hernia repair hysterectomyknee replacement x2back surgeryHospitalization History Reason Date(Month/Year) see surgical
--- OUTSIDE RECORDS SUMMARY | 2025-07-12 00:15 | XMS_ITS | Clinical Summary ---
Author Organization [facility] Healthcare Address [address] [place] [address] Care Team Providers Care County Bailiff Name Role Phone Dmitriy Presley MD Primary Care Provider [phone] Maco Guillaume DO Unavailable [phone] Allergies Active AllergyReactionsCriticalityNoted SialNmefunjaYweybkkvlkmSyckm97/06/2019 Other Reaction(s): Eye swelling TpczeqarehexiyNpuizij27/26/2023 Medications MedicationSigDispense QuantityRefillsLast FilledStart DateEnd DateStatus hydroxychloroquine [...] urethra 3x per week for UTI prevention, [employer], 178, cm, 08/16/24 9:10:00 EST, Height/Length Dosing, 103, kg, 08/16/24 9:10:00 EST, Weight Iewyfp495Active aspirin 81 MG EC tablet 1 (one) time each day at the same timeActive magnesium oxide (Mag-Ox) 400 (240 Mg) MG tablet Take 400 mg by mouth Daily5Active Active Problems ProblemNoted DateDiagnosed TrwzBoblfgbz48/11/6980Dutncsqfpqbm79/11/2024chilles tendinitis of left lower xjjmjoaax87/28/2023one spur of posterior portion of qghhpezgo29/28/5729Ngcjqafyxkuca56/28/2023rtificial knee joint present 12/06/2022urning sensation of vulva12/06/2022Mixed kimdczeuvyef76/26/2023 Notalgia hnntiedyywql91/26/2023Other hammer toe(s) (acquired), left foot 12/06/2022Other hammer toe(s) (acquired), right foot12/06/2022Overactive bladder 12/06/2022Type 2 diabetes mellitus with peripheral nhfvexwmgj34/26/2023 Unsteadiness on feet12/06/2022Vaginal igomdwu0012/06/2022Rheumatoid arthritis 06/04/2011enign essential kmcosqffrqjr10/01/2010Disorder associated with type 2 diabetes /01/2010 Encounters DateTypeDepartmentCare GapuAmhnktdizbg62/06/2025 2:30 PM EDTOffice Visit [facility] [address] [place] [address] Nay Louis PA Clements angioma (Primary Dx); Seborrheic keratosis; Actinic keratosis; Lentigines; Lipoma of right upper upbpdqvss56/06/2025amboo flowsheet [facility] [address] [place] [address] Nay Louis PA 04/18/2025Travelfrom Last 3 Months [...] InformationValueDate RecordedSex Assigned at Not on fileLegal OouGpvhkx26/15/2023 7:08 PM EDTGender IdentityNot on fileSexual OrientationNot on file Last Filed Vital Signs Vital SignReadingTime TakenCommentsBlood Tzkvvwzt749/7607 1:23 PM EDT Qltrh4367 2:16 PM ESTTemperature--Respiratory Rate--Oxygen Xmckzualwi12% 06/17/2024 1:58 PM ESTInhaled Oxygen Concentration--Ytrwqb033 kg (225 lb) 01/12/2025 1:23 PM IQCRsqjeq976.3 cm (5' 9 )01/12/2025 1:23 PM EDTBody Mass Index33.23001/12/2025 1:23 PM EDT Plan of Treatment Health MaintenanceDue DateLast DoneCommentsInfluenza Vaccine (#1)03/14/2025 03/19/2024, 04/15/2023, 04/25/2021, Additional history existsPneumococcal Vaccine: 65+ MqknbKvsdvlhzh93/11/2023, 04/22/2022, 07/14/2019, Additional history exists Procedures Procedure NamePriorityDate/TimeAssociated DiagnosisCommentsCRYOTHERAPY SKIN TJPUNWEujympv10/06/2025 2:46 PM EDT Actinic keratosis from Last 3 Months Results * Cryotherapy, skin lesion (04/18/2025 2:46 PM EDT) Narrative Authorizing ProviderResult TypeResult StatusRye [facility] PROCEDURE ORDERABLESFinal Result from Last 3 Months Insurance Care Teams Team MemberRelationshipSpecialtyStart DateEnd Date Dmitriy Presley MD [address] [place] [address] [address] [place] [address] PCP - GeneralFamily Medicine12/10/22 Maco Guillaume DO [address] [place] [address] Referring PhysicianNeurology1
--- OUTSIDE RECORDS SUMMARY | 2025-07-12 00:16 | XMS_ITS | CCD ---
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 Role Phone Ayanna Vicente Primary Care Provider Ayanna Vicente Unavailable Ayanna Vicente Unavailable Ayanna Vicente Unavailable Ayanna Milner Unavailable DO Ayanna Vicente Primary Care Provider MD Butch Redding Emergency Provider [phone] MD Bertram Garrison Admit Provider MD Bertram Garrison Attending Provider MD Galo Max Admit Provider MD Galo Max Attending Provider ALLYSSA Penn Other Provider Unavailable ALLYSSA Orourke Other Provider Unavailable ALLYSSA Camejo Other Provider Unavailable ALLYSSA Das Other Provider Unavailable ALLYSSA Acosta Other Provider Unavailable Mae RN Laura Other Provider Unavailable MD Yuliana Hale Other Provider MD Herman Kevin Other Provider Prasanths, DERRICK WORKER Kitty Villalobos Other Provider [phone] DO Madeline Juarez Other Provider [phone] MD Marcio Hernandez Other Provider [phone] DO Loco Velasquez Other Provider MD Elgin Irby Other Provider [phone] MD Adali Salamanca Other Provider [phone] ART Riojas-BC Valarie Other Provider MD [...] DO Ayanna Vicente Primary Care Provider DO Aynana Vicente Attending Provider MD Santos Lares Attending [...] Care Provider DO Ayanna Vicente Attending Provider [phone] Ayanna Vicente DO Primary Care Provider Ayanna Vicente DO Unavailable [phone] Ayanna Vicente DO Unavailable [phone] DO Ayanna Vicente Primary Care Provider DO Ayanna Vicente Attending Provider Ayanna Vicente DO Primary Care Provider Ayanna Vicente DO Attending Provider Aundrea WISDOM Christopher Unavailable [phone] Ayanna Vicente DO Primary Care Provider Ayanna Vicente DO Attending Provider [phone] Tri Ag DO Attending Provider Ayanna Vicente DO Attending Provider AYANNA VICENTE Primary Care Unavailable SELF Referring Unavailable ZOHAIB GERMAN Attending Unavailable AYANNA VICENTE Primary Care Unavailable AYANNA VICENTE Primary Care Unavailable CHAD FREITAS Attending Unavailable ZOHAIB GERMAN Attending Unavailable AYANNA VICENTE Primary Care Unavailable Ayanna Vicente MD Primary Care Provider Aundrea WISDOM, Christopher Unavailable Aundrea , Christopher Unavailable [phone] Ayanna Vicente DO Attending Provider Ayanna Vicente DO Primary Care Provider Lesli Arevalo MD Attending Provider Moe Betts DO Attending Provider Sujey Stewart Attending Unavailable SUSAN RANDOLPH Attending Unavailable SUSAN RANDOLPH Attending Unavailable SUSAN RANDOLPH Attending Unavailable Ayanna Vicente DO Primary Care Provider Latha ROMEO, Andrius Attending Provider Ayanna Vicente DO Attending Provider [phone] Giedrarory ROMEO, Andrius Vy[place]as Attending Unavailable Giedraitis [...] alejandra Attending Unavailable TATE LOUIS Attending Unavailable ENIRQUE HAMMONDS Attending Unavailable BABITA GUILLAUME Referring Unavailable MOE BETTS Attending Unavailable BABITA GUILLAUME Attending Unavailable AYANNA VICENTE Referring Unavailable ROXANE, MOE H Attending Unavailable ESVIN DUBON Attending Unavailable Ayanna Vicente DO Primary Care Provider Lesli Arevalo MD Attending Provider Mckenzie Christopher APRN Attending Provider [phone] Ayanna Vicente DO Primary Care Provider [phone] Ayanna Vicente DO Primary Care Provider Latha ROMEO, Andri Attending Provider Mckenzie Christopher APRN Attending Provider [phone] Ayanna Vicente DO Attending Provider Mckenzie Christopher [...] Admitting Unavailable Moe Betts Attending Unavailable Moe Betts Admitting Unavailable Ayanna Vicente Primary Care Unavailable Allergies Allergy ClassificationReported Allergen(s)Allergy TypeDate of OnsetReaction(s) FacilityCephalosporins (antibiotic) (1 source)Cephalosporins (Antibiotic)Drug Xmzcxyp79-01-7025Zrsme, Swelling [facility] (20 sources)cefpodoxime; Translations: [Vantin]Drug Qvctfyv57-19-5060Wzv swelling (finding)[facility] (20 sources)cepahlosporinsPropensity to adverse reactionsSaint Joseph's Hospital [facility]ze Other (20 sources)Cephalosporins (Antibiotic); Translations: [Cephalosporins]Allergy to vbefwsjum64-08-8581Uyhvz, Swelling, Swelling (morphologic abnormality), Eye swelling (finding), UnknownPeoples HospitalComment on above: Eyes swelled also (20 sources)cefpodoxime; Translations: [CEFPODOXIME]Drug Polcsbn25-99-8218 Unknown, Other[facility] (1 source)AmoxicillinDrug Xwgqduy47-00-1703[facility] (15 sources)Medicinal cephalosporin and acting as antibacterial agent (FN)Drug allergyUnkRhode Island Homeopathic Hospital [facility]ze Other (2 sources)Bacitracin / Neomycin / Polymyxin BDrug AllergySaint Joseph's Hospital Adeze Other (20 sources)Bacitracin; Translations: [bacitracin]Drug Ogxxydr34-14-5030QzclnasWVUMedicine [facility] (20 sources)Neomycin; Translations: [neomycin]Drug Vawfihr32-47-4075KlddzglWVUMedicine Barnesville Hospital (20 sources)polymyxin B; Translations: [polymyxin B]Allergy to substance 85-52-4457YkharpjWVUMedicine Barnesville Hospital (1 source)cefpodoximeDrug Givwlvy33-77-7892VfgxsmkqtPeoples Hospital Repository Medications Current Medications MedicationDrug Class(es)DatesSig (Normalized)Sig (Original)albuterol 0.83 mg/ml inhalation solution (12 sources)beta2-Adrenergic AgonistStart: 58-85-4757rymy 2.5 mg by inhalation every four hours as needed for wheezingStart: 84-32-6990alrl 1 puff(s) by inhalation every four hoursStart: 04-26-2025 End: 20-78-1834hdac 2.5 mg by inhalation every eight hours as needed for wheezingAlbuterol Sulfate 2.5 mg /3 mL (0.083 %) solution for nebulization Discontinued 2.5 MG INHALATION Q8H as needed for shortness of breath or wheezing 63 7 0 April 25, 2025 11:00pm May 06, 2025 9:04amascorbic acid 500 mg oral tablet (20 sources)Vitamin CStart: 43-43-1892jkcv 1 tablet by mouth once dailytake 1 tablet by mouth every twenty-four hoursVitamin C 500 MG 1 tablet Orally Once a day Activeaspirin 81 mg chewable tablet (20 sources)Platelet Aggregation Inhibitor, Nonsteroidal Anti-inflammatory Drug Start: 26-60-2936acsf 1 mg by mouth once dailyaspirin 81 mg Oral EC Tab mg tab(s), Oral, Daily, Refills(s) 0 Start Date: 10/26/20 Status: Ordered Repeat number: 1Start: 03-13-2017 End: 53-39-9145hrtz 1 tablet by mouth once dailyAspirin 81 mg Tablet,Chewable Discontinued 81 MG PO Daily 30 0 April 01, 2017 11:00pm January 24, 2022 2:09pmStart: 97-32-4434NVCLJXW 81MG TABLET Indications: Other specified idiopathic peripheral neuropathy Take one (1) tablet daily . 0 02/20/2004 Active Aspirin 81 mg 1 tablet once a day ActiveComment on above:Take one (1) tablet daily .atorvastatin 20 mg oral tablet (20 sources)HMG-CoA Reductase InhibitorStart: 20-26-6443hcmo 1 tablet by mouth once dailyStart: 04-01-2025 End: 06-73-1205pwld 1 tablet by mouth once dailyAtorvastatin 20 mg tablet Discontinued 0 .ROUTE .COMPLEX 90 3 April 01, 2025 6:40am April 28, 2025 11:01am TAKE 1 TABLET BY MOUTH DAILYStart: 10-13-2023 End: 20-55-7204stmc 1 tablet by mouth once dailyAtorvastatin 20 mg tablet Discontinued 0 .ROUTE .COMPLEX 90 1 October 13, 2023 1:08pm October 21, 2023 2:22pm TAKE 1 TABLET BY MOUTH DAILYStart: 10-13-2023 End: 16-82-6654ebqd 1 tablet by mouth once dailyAtorvastatin Discontinued 0 .ROUTE .COMPLEX 90 October 13, 2023 1:08pm October 21, 2023 2:22pm TAKE 1TABLET BY MOUTH DAILYStart: 10-13-2023 End: 53-58-3046xatc 1 tablet by mouth once dailyAtorvastatin Discontinued 0 .ROUTE .COMPLEX October 13, 2023 2:08pm October 21, 2023 3:22pm TAKE 1TABLET BY MOUTH DAILYStart: 87-72-8125qydg 1 tablet by mouth once dailyAtorvastatin Active 0 .ROUTE .COMPLEX October 13, 2023 2:08pm TAKE 1 TABLET BY MOUTH DAILYStart: 02-20-2004 End: 56-67-8654idos 1 tablet by mouth once dailyAtorvastatin 20 mg tablet Discontinued 20 MG PO Daily October 21, 2023 2:22pm April 19, 2024 3:16pm Start: 69-69-7697EOLRTMP 10MG TABLET Indications: Other specified idiopathic peripheral neuropathy Take 20 mg by mouth. 0 02/20/2004 ActiveStart: 02-20-2004 LIPITOR 10MG TABLET Indications: Other specified idiopathic peripheral neuropathy Take one(1) tablet daily. 0 02/20/2004 ActiveComment on above:Take one(1) tablet daily.Take 20 mg by mouth. B-Complex With Vitamin C tablet (9 sources)Start: 45-69-8666yfca 1 tablet by mouth once dailyStart: 12-16-2024 take 1 tablet by mouth once dailyB-Complex With Vitamin C tablet Active 1 TAB PO Daily December 15, 2024 11:00pm Complies with drug therapyStart: 55-38-8074enoa 1 tablet by mouth once dailyB-Complex With Vitamin C tablet Active 1 TAB PO Daily December 16, 2024 12:00am Complies with drug therapyStart: 95-10-4867ednj 1 tablet by mouth once dailyStart: 75-23-3155ptvi 1 tablet by mouth once dailyB-Complex With Vitamin C tablet Active 1 TAB PO Daily December 16, 2024 12:00amCentrum Silver (20 sources)Centrum Silver ActiveCENTRUM SILVER TABLET (12 sources)Start: 85-09-6608CYHLWSH SILVER TABLET Indications: Other specified idiopathic peripheral neuropathy Take one(1) tablet daily. 0 02/20/2004 Active Comment on above:Take one(1) tablet daily.cholecalciferol 0.125 mg oral capsule (20 sources)Vitamin DStart: 08-27-8544zeagqqacektgtgt (Vitamin D-3) 125 MCG (5000 UT) capsule 5,000 Units 10/21/2023 ActiveStart: 84-47-9661Fcdllav D3 125 MCG (5000 UT) as directed Orally ActiveVitamin D3 125 MCG (5000 UT) as directed Orally Activeciprofloxacin 500 mg oral tablet (20 sources)Quinolone AntimicrobialStart: 02-08-2025 End: 46-10-6944tezz 1 tablet by mouth every twelve hoursCipro 500 mg Tab 500 mg = 1 tab(s), Oral, q12hr, X 7 day(s), # 14 tab(s), Refills(s) 0, Pharmacy: [facility], 178, cm, 02/08/25 9:03:00 EDT, Height/Length Dosing, 105.1, kg, 02/08/25 9:03:00 EDT, Weight Dosing Start Date: 02/08/25 Stop Date: 02/15/25 Status: Ordered Quantity: 14.0 Unit: tab(s) Repeat number: 1Start: 02-10-2024 End: 28-47-1731upnw 1 tablet by mouth twice dailyCiprofloxacin Hcl (Cipro) 250 mg tablet Discontinued 250 MG PO Twice daily 10 5 0 February 09, 2024 11:00pm March 08, 2024 1:47pmStart: 05-20-2018 End: 97-01-0992yovc 1 tablet by mouth twice dailyCiprofloxacin Hcl (Cipro) 500 mg tablet Discontinued 500 MG PO Twice daily 14 7 0 August 11, 2024 1:38pm November 10, 2024 2:51pmestradiol 0.1 mg/ml vaginal cream (17 sources)EstrogenStart: 10-56-3121Rjgigdg 0.1 mg/g Cream See Instructions, 42.5 gm, Refill(s) 6, apply a pea-sized amount vaginally and around the urethra 3x per week for UTI prevention, [facility], 178, cm, 02/08/25 9 :03:00 EDT, Height/Length Dosing, 105.1, kg, 02/08/25 9:03:00 EDT, Weight Dosing Start Date: 02/08/25 Status: Ordered Quantity: 42.5 Unit: g Repeat number: 7 Start: 69-34-2060Czkym: 26-18-1013Cyknxta 0.1 MG/GM vaginal cream See Instructions, 42.5 gm, Refill(s) 6, apply a pea-sized amount vaginally and around the urethra 3x per week for UTI prevention, [facility], 178, cm, 08/16/24 9:10:00 EST, Height/Length Dosing, 103, kg, 08/16/24 9:10:00 EST, Weight Dosing 08/16/2024 ActiveStart: 20-47-7692Ckrznnm 0.1 mg/g Cream See Instructions, 42.5 gm, Refill(s) 6, apply a pea-sized amount vaginally and around the urethra 3x per week for UTI prevention, [facility], 178, cm, 08/16/24 9:10:00 EST, Height/Length Dosing, 103, kg, 08/16/24 9:10:00 EST, Weight Dosing Start Date: 08/16/24 Status: Orderedezetimibe 10 mg oral tablet (20 sources)Dietary Cholesterol Absorption InhibitorStart: 23-59-4173byas 1 tablet by mouth once dailyStart: 03-30-2024 End: 10-81-5051hkxw 1 tablet by mouth once dailyEzetimibe 10 mg tablet Discontinued 0 .ROUTE .COMPLEX 90 3 April 01, 2025 6:40am April 28, 2025 11:01am TAKE 1 TABLET BY MOUTH DAILYStart: 63-10-9349hgvs 1 tablet by mouth once dailyEzetimibe Active 0 .ROUTE .COMPLEX 90 March 30, 2024 9:02am TAKE 1 TABLET BY MOUTH ONCE DAILYStart: 42-29-5549lmbm 1 tablet by mouth once daily Ezetimibe Active 0 .ROUTE .COMPLEX 90 March 30, 2024 10:02am TAKE 1 TABLET BY MOUTH ONCE DAILYStart: 02-20-2004 End: 61-99-5367rkup 1 tablet by mouth at bedtimeEzetimibe 10 mg Tablet Discontinued 10 MG PO Bedtime 30 30 0 January 23, 2022 11:00pm March 30, 2024 9:03amComment on above:Take one(1) tablet daily.Glucometer (20 sources)Start: 22-04-4017Qrkctrismt Feb, ActivehydroCHLOROthiazide 25 mg / triamterene 37.5 mg oral tablet (20 sources)Potassium-sparing Diuretic, Thiazide DiureticStart: 16-49-0461nhpy 0.5 tablet by mouth once dailyStart: 01-27-2025 End: 55-13-8879vwez 0.5 tablet by mouth once dailyTriamterene-Hydrochlorothiazid 37.5-25 mg tablet Discontinued 0.5 TAB PO Daily January 27, 2025 12:59pm April 01, 2025 6:40amStart: 12-16-2024 End: 65-59-4576bjmf 0.5 tablet by mouth onceTriamterene-Hydrochlorothiazid 37.5- 25 mg tablet Discontinued 0.5 TAB PO Once December 16, 2024 1:33pmJuly 2024 1:00pmStart: 45-65-3271oilkyaisxdj-hydrochlorothiazide (Maxzide-25) 37.5-25 MG tablet 04/19/2024 ActiveStart: 10-13-2023 End: 40-75-2007fmib 0.5 tablet by mouth once dailyTriamterene-Hydrochlorothiazid 37.5-25 mg tablet Discontinued 0 .ROUTE .COMPLEX 45 3 April 19, 2024 3:16pm December 16, 2024 1:38pm TAKE 1/2 (ONE-HALF) OF A TABLET BY MOUTH DAILYStart: 03-13-2017 End: 69-07-7003mdwb 0.5 tablet by mouth once dailyTriamterene-Hydrochlorothiazid 37.5-25 mg tablet Discontinued 0 PO Daily October 12, 2023 11:00pm October 13, 2023 1:09pm take 1/2 tablet by mouth daily End: 87-40-0776ubvpmitkonx-hydrochlorothiazide (Maxzide) 75-50 MG tablet 1 (one) time each day at the same time. 06/23/2024 Discontinuedhydroxychloroquine sulfate 200 mg oral tablet (20 sources)Antimalarial, Antirheumatic AgentStart: 36-43-0598aypj 1 tablet by mouth once dailyStart: 08-11-2024 End: 51-05-3863wkho 1 tablet by mouth twice dailyHydroxychloroquine 200 mg tablet Discontinued 200 MG PO Twice daily August 11, 2024 12:00am November 10, 2024 2:52pmStart: 01-09-2022 End: 76-31-0970dqgo 2 tablets by mouth once dailyhydrOXYchloroQUINE (PLAQUENIL) 200 mg tablet Indications: Primary osteoarthritis involving multiplejoints Take 2 tablets by mouth once daily. 180 tablet 3 05/17/2024 12/17/2024 Discontinued Start: 25-48-1147ggqg 400 mg by mouth once dailyPlaquenil 400 mg, Oral, Daily, Refills(s) 0 Start Date: 12/19/20 Status: OrderedStart: 03-13-2017 End: 14-68-1518busg 1 tablet by mouth once dailyHydroxychloroquine 200 [...] pen injector (20 sources)Insulin AnalogStart: 02-10-2024 End: 79-17-1463Otfhi: 10-21-2023 End: 65-72-6476Gpxahqs Glargine (Lantus Solostar U-100 Insulin) 100 unit/mL (3 mL) insulin pen Discontinued 34 UNIT SUBCUT Every evening October 21, 2023 2:50pm February 10, 2024 2:07pmStart: 10-20-2023 End: 64-32-4624Vjnqpxm Glargine (Lantus Solostar U-100 Insulin) 100 unit/mL (3 mL) insulin pen Discontinued 46 UNIT SUBCUT Daily at bedtime October 19, 2023 11:00pm October 20, 2023 1:21pmStart: 10-02-2022 End: 54-66-7159Jrsojbg Glargine (Lantus Solostar U-100 Insulin) 100 unit/mL (3 mL) insulin pen Discontinued 0 .ROUTE .COMPLEX 45 3 October 20, 2023 1:21pm October 21, 2023 2:51pm INJECT 46 UNITS SUBCUTANEOUSLY AT BEDTIMEStart: 10-02-2022 Lantus SoloStar 100 UNIT/ML pen 10/02/2022 ActiveStart: 01-13-2022 End: 79-46-5308vgtllj 21 [IU] by subcutaneous injection once daily at bedtime Insulin Glargine Discontinued 21 UNIT SUBCUT Daily at bedtime January 12, 2022 11:00pm January 24, 2022 2:09pmStart: 01-13-2022 End: 73-52-2863mpuexs 21 [IU] by subcutaneous injection once daily at bedtime Insulin Glargine Discontinued 21 UNIT SUBCUT Daily at bedtime January 13, 2022 12:00am January 24, 2022 3:09pmStart: 17-96-3121Knrdef SoloStar 300 UNIT/ML as directed Subcutaneous November, Not-TakingStart: 69-35-2404Qhmhkb Solostar Pen 100 units/mL subcutaneous solution SubCutaneous, Daily, Refills(s) 0 Start Date: 10/26/20 Status: Ordered Repeat number: 1Start: 03-13-2017 End: 87-12-3824wksbud 10 [IU] by subcutaneous injection once daily [...] sodium 0.1 mg oral tablet (20 sources)l-ThyroxineStart: 88-01-9856tnxj 1 tablet by mouth in the morning Start: 04-01-2025 End: 90-54-4550zbsm 1 tablet by mouth in the morningLevothyroxine 100 mcg tablet Discontinued 0 .ROUTE .COMPLEX 90 3 April 01, 2025 6:40am April 28, 2025 11:01am TAKE 1 TABLET BY MOUTH IN THE MORNING ON AN EMPTY STOMACH. Do not eat or drink for 30-45 MINUTES after takingStart: 10-21-2023 End: 27-35-3338upsf 1 tablet by mouth once daily in the morningLevothyroxine 100 mcg tablet Discontinued 100 MCG PO Daily 90 3 April 19, 2024 3:18pm April 01, 2025 6:40am TAKE 1 TABLET BY MOUTH EVERY MORNING ON AN EMPTY STOMACH DO NOT EAT OR DRINK FOR 30-45 MIN AFTER TAKINGStart: 11-25-7907wcgs 1 tablet by mouth once dailySynthroid 100 mcg Tab 100 mcg = 1 tab(s), Oral, Daily, Refills(s) 0 Start Date: 10/26/20 Status: Ordered Repeat number: 1Start: 03-13-2017 End: 32-63-7259vqrw 1 tablet by mouth once dailyLevothyroxine 75 mcg Tablet Discontinued 75 MCG PO Daily at 0730 30 30 0 January 23, 2022 11:00pm October 21, 2023 2:14pmStart: 97-12-9738WSGBDRDBMRIKJ 88 mcg ORAL tablet 06/10/2011 Active End: 16-93-8135umdu 1 tablet by mouth once dailylevothyroxine (Synthroid) 50 MCG tablet take 1 tablet by ORAL route every day Oral 06/23/2024 Discontinuedtake 1 tablet by mouth once daily in the morningLevothyroxine Sodium 100 mcg TAKE 1 TABLET BY MOUTH EVERY MORNING ON AN EMPTY STOMACH Activelisinopril 10 mg oral tablet (20 sources)Angiotensin Converting Enzyme InhibitorStart: 62-05-8023lpyo 1 tablet by mouth once dailyStart: 04-01-2025 End: 48-38-9178rdud 1 tablet by mouth once dailyLisinopril 10 mg tablet Discontinued 0 .ROUTE .COMPLEX 90 3 April 01, 2025 6:40am April 28, 2025 11:01am TAKE 1 TABLET BY MOUTH DAILYStart: 10-13-2023 End: 10-30-8586zmkv 1 tablet by mouth once dailyLisinopril 10 mg tablet Discontinued 0 .ROUTE .COMPLEX 90 1 October 13, 2023 1:08pm October 21, 2023 2 :51pm TAKE 1 TABLET BY MOUTH DAILYStart: 05-09-2011 End: 72-04-8090oeqc 1 tablet by mouth once dailyLisinopril 10 mg tablet Discontinued 10 MG PO Daily October 21, 2023 2:51pm April 19, 2024 3:16pm Start: 98-15-7379gtpz 10 mg by mouth once dailyZESTRIL 20MG TABLET Indications: Other specified idiopathic peripheral neuropathy Take 10 mg by mouth once daily. 0 02/20/2004 ActiveStart: 02-20-2004 End: 96-09-1630yicfeccfqa (ZESTRIL, PRINIVIL) 20 mg tabletComment on above:Take one(1) tablet daily.Take 10 mg by mouth once daily. loperamide hydrochloride 2 mg oral tablet (20 sources)Opioid AgonistStart: 62-28-8691trwt 1 tablet by mouth once as needed Imodium A-D 2 MG 1 tablet as needed Orally PRN prn Sep, ActiveStart: 39-42-0809fvze 1 tablet by mouth every six hoursImodium A-D 2 MG 1 tablet as needed Orally Four times a day Sep, Activemagnesium oxide 400 mg oral tablet (8 sources)Start: 06-73-6147rmcs 1 tablet by mouth once dailymetFORMIN hydrochloride 500 mg oral tablet (20 sources)BiguanideStart: 01-27-2025 End: 20-98-5872ulmb 1 tablet by mouth twice dailyStart: 12-19-2020 End: 91-98-2784jilf 1 tablet by mouth twice dailyMetformin 1,000 mg tablet Discontinued 1000 MG PO Twice daily October 20, 2023 11:00pm April 19, 2024 3:16pmStart: 04-02-2017 End: 20-96-6946zveu 2 tablets by mouth twice daily at mealtimeMetformin 500 mg Tablet Discontinued 1000 MG PO Twice daily with meals 120 30 0 January 23, 2022 11:00pm October 21, 2023 12:47pmStart: 04-02-2017 End: 41-98-0768rnwj 1000 mg by mouth twice daily at mealtimeMetformin Discontinued 1000 MG PO Twice daily with meals 120 30 January 23, 2022 11:00pm October 21, 2023 12:47pmStart: 05-09-2011 End: 13-01-6459vfns 1 tablet by mouth twice dailyMetformin 1,000 [...] time ActiveMultiple Vitamin (Tab-A-Sivan) tablet (18 sources)Start: 59-70-5611ocqr 1 tablet by mouth once dailyMultiple Vitamin (Tab-A-Sivan) tablet Take 1 tablet by mouth Daily 01/24/2022 ActiveStart: 35-17-3977obfl 1 tablet by mouth in the morningMultiple Vitamin (Tab-A-Sivan) tablet Take 1 tablet by mouth in the morning. 01/24/2022 ActiveStart: 01-24-2022 take 1 tablet by mouth in the morningMultiple Vitamin (Tab-A-Sivan) tablet Take 1 tablet by mouth in the morning. 0 01/24/2022 ActiveMultivitamin preparation (20 sources)Multivitamin ActiveMultivitamin With Folic Acid (Thera) 400 mcg Tablet (20 sources)Start: 66-50-0133srer 1 tablet by mouth once dailyStart: 01-24-2022 take 1 tablet by mouth once dailyMultivitamin With Folic Acid (Thera) 400 mcg Tablet Active 1 TAB PO Daily January 23, 2022 11:00pm Complies with drug therapyStart: 77-18-5460wpgy 1 tablet by mouth once dailyMultivitamin With Folic Acid (Thera) 400 mcg Tablet Active 1 TAB PO Daily January 24, 2022 12:00am Complies with drug therapyStart: 46-77-8151avio 1 tablet by mouth once daily Start: 23-00-3770fgam 1 tablet by mouth once dailyMultivitamin With Folic Acid (Thera) 400 mcg Tablet Active 1 TAB PO Daily January 23, 2022 11:00pmStart: 02-85-4714azhr 1 tablet by mouth once dailyMultivitamin With Folic Acid (Thera) 400 mcg Tablet Active 1 TAB PO Daily January 24, 2022 12:00amStart: 04-02-2017 End: 51-58-9373nwvf 1 tablet by mouth once dailyMultivitamin With Folic Acid (Thera) 400 mcg Tablet Discontinued 1 TAB PO Daily April 01, 2017 11:00pm January 24, 2022 2:09pmStart: 04-02-2017 End: 99-59-5725ncpt 1 tablet by mouth once dailyMultivitamin With Folic Acid (Thera) 400 mcg Tablet Discontinued 1 TAB PO Daily April 01, 2017 11:00pm January 24, 2022 2:09pmStart: 04-02-2017 End: 12-19-0570tvgr 1 tablet by mouth once dailyMultivitamin With Folic Acid (Thera) 400 mcg Tablet Discontinued 1 TAB PO Daily April 02, 2017 12:00am January 24, 2022 3:09pmMultivitamins and Minerals (4 sources)Start: 03-41-3862Ozazupbiybqqw and Minerals Refill(s) 0 Start Date: 10/26/20 Status: Ordered Repeat number: 1Start: 08-66-5808Jdpaemqkooxhu and Minerals Refill(s) 0 Start Date: 10/26/20 Status: Orderedoxybutynin chloride 5 mg oral tablet (20 sources)Cholinergic Muscarinic AntagonistStart: 93-07-8208uyjy 1 tablet by mouth once dailyStart: 77-11-0905xtzb 1 tablet by mouth three times daily as neededoxybutynin (Ditropan) 5 MG tablet See Instructions, can take 1 tab po up to TID PRN incontinence, #90 tab(s), Refills(s) 3, Pharmacy: [facility], 178, cm, 02/11/23 11:43:00 EDT, Height/Length Dosing, 106.9, kg, 02/11/23 11:43:00 EDT, Weight Dosing 02/11/2023 ActiveStart: 23-44-9623cvxr 1 tablet by mouth every twenty-four hoursDitropan XL 10 MG 1 tablet Orally Once a day Sep, Not-Takingpregabalin 150 mg oral capsule (20 sources)Start: 02-15-2025 End: 02-74-4801gtkd 1 capsule by mouth twice dailyStart: 06-09-2017 End: 89-96-7020yhvz 1 capsule by mouth twice dailyPregabalin (Lyrica) 225 mg capsule Discontinued 225 MG PO Twice daily 180 90 1 October 13, 2023 1:11pm March 30, 2024 9:02am Chronic back pain Dorsalgia, unspecified Other chronic painStart: 04-02-2017 End: 32-67-2834ltdw 3 capsules by mouth twice dailyPregabalin 75 mg Capsule Discontinued 225 MG PO Twice daily 180 30 0 January 23, 2022 11:00pm October 13, 2023 1:10pm Chronic back pain 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 Dorsalgia, unspecified Other chronic pain Other intervertebral disc degeneration, lumbar region Intervertebral disc disorders with radiculopathy, lumbar regionStart: 07-19-2011 End: 77-33-3562ostu 1 capsule by mouth twice dailyPregabalin (Lyrica) 225 mg Capsule Discontinued 225 MG PO Twice daily March 12, 2017 11:00pm April 02, 2017 8:59amComment on above:Take 225 mg by mouth twice daily.24 hr propranolol hydrochloride 60 mg extended release oral capsule (20 sources)beta-Adrenergic BlockerStart: 11-56-7046jobs 1 capsule by mouth once dailyStart: 04-01-2025 End: 77-74-2409ygqt 1 capsule by mouth once dailyPropranolol 60 mg capsule,extended release 24 hr Discontinued 0 .ROUTE .COMPLEX 90 3 April 01, 2025 6:40am April 28, 2025 11:01am TAKE 1 CAPSULE BY MOUTH DAILYStart: 02-36-1540ztlq 1 capsule by mouth every twenty-four hours in the morning propranolol LA (Inderal LA) 60 MG 24 hr capsule Take 60 mg by mouth in the morning. 07/12/2023 ActiveStart: 02-20-2004 End: 87-58-4620gxje 1 capsule by mouth once dailyPropranolol 60 [...] TABLET BY MOUTH ONCE DAILY for 90 Wnoftz83 hr venlafaxine 75 mg extended release oral capsule (20 sources)Serotonin and Norepinephrine Reuptake InhibitorStart: 87-32-7148bsfr 1 capsule by mouth once dailyStart: 07-08-2024 End: 95-49-4828dwex 1 capsule by mouth once daily at mealtimeVenlafaxine 75 mg capsule,extended release 24hr Discontinued 0 .ROUTE .COMPLEX 90 July 08, 2024 12:36pm December 16, 2024 1:38pm TAKE 1 CAPSULE BY MOUTH EVERY DAY WITH FOOD Start: 07-08-2024 End: 73-94-1400ctvx 1 capsule by mouth once daily at mealtimeVenlafaxine 75 mg capsule,extended release 24hr Discontinued 0 .ROUTE .COMPLEX July 08, 2024 1:36pm December 16, 2024 2:38pm TAKE 1 CAPSULE BY MOUTH EVERY DAY WITH FOOD Start: 07-15-2023 End: 95-09-3193cqhv 1 capsule by mouth every twenty-four hoursVenlafaxine 75 mg capsule,extended release 24hr Discontinued 75 MG PO Once December 16, 2024 1:34pm January 27, 2025 1:00pmStart: 01-01-2022 End: 65-13-1249hanp 1 capsule by mouth once dailyVenlafaxine 75 mg Capsule,Extended Release 24hr Discontinued 75 MG PO Daily 30 30 0 January 231:00pm July 08, 2024 12:36pmComment on above:Take 75 mg by mouth once daily.Vitamin B Complex (20 sources)Vitamin B Complex Not-TakingVitamin B Complex ActiveVitamin B Complex oral capsule (4 sources)Start: 97-12-2539jcwc 1 capsule by mouth once dailyVitamin B Complex oral capsule Oral, Daily, Refill(s) 0 Start Date: 10/26/20 Status: Ordered Repeat number: 1Start: 18-00-2632Jwcldwa B Complex oral capsule Oral, Daily, Refill(s) 0 Start Date: 10/26/20 Status: Ordered Completed/Discontinued Medications MedicationDrug Class(es)DatesSig (Normalized)Sig (Original)acetaminophen 325 mg oral tablet (20 sources)Start: 01-15-2022 End: 77-67-8977btqj 1-3 tablets by mouth every six hours as needed for pain Acetaminophen 325 mg Tablet Discontinued 650 MG PO Q6H as needed for Pain Scale 1 - 3 or fever 0 0 January 14, 2022 11:00pm January 24, 2022 2:09pmStart: 01-15-2022 End: 62-80-7053lbdm 650 mg by mouth every six hoursAcetaminophen Discontinued 650 MG PO Q6H 0 January 14, 2022 11:00pm January 24, 2022 2:09pmStart: 04-02-2017 End: 39-46-0049awin 1 tablet by mouth every four hours as needed for pain Acetaminophen 325 mg Tablet Discontinued 325 MG PO Q4H as needed for Pain 30 April 01, 201711:00pm January 13, 2022 3:42pmStart: 04-02-2017 End: 10-10-8747fros 2 tablets by mouth every four hours as needed for pain Acetaminophen 325 mg Tablet Discontinued 650 MG PO Q4H as needed for Pain 30 0 April 01, 201711:00pm January 13, 2022 3:42pmStart: 04-02-2017 End: 02-26-9017zupn 650 mg by mouth every four hoursAcetaminophen Discontinued 650 MG PO Q4H April 01, 2017 11:00pm January 13, 2022 3:42pmacetaminophen 325 mg / HYDROcodone bitartrate 5 mg oral tablet (20 sources)Opioid AgonistStart: 04-02-2017 End: 04-24-3493hjeg 2 tablets by mouth every four hours as needed for pain Hydrocodone-Acetaminophen 5-325 mg Tablet Discontinued 2 TAB PO Q4H as needed for Severe Pain 30 April 01, 2017 11:00pm January 14, 2022 10:19am acetaminophen 325 mg / oxyCODONE hydrochloride 5 mg oral tablet (20 sources)Opioid AgonistStart: 02-05-2024 End: 81-46-2907Osnfkyzme-Acetaminophen (Percocet) 5-325 mg tablet Discontinued 1 TAB PO .COMPLEX 60 30 0 February 15, 2025 April 28, 2025 11:20am Other spondylosis with radiculopathy, lumbar region Other spondylosis with radiculopathy, lumbar region pain 1 tab orally one to two times a day as needed Start: 43-86-7471feqPTRABW-Acetaminophen 5-325 MG 1 tablet Orally one to two times a day as needed for 30 days Jul, ActiveStart: 20-47-8703tzjTCNNNB- Acetaminophen 5-325 MG 1 tablet Orally one to two times a day as needed for 30 days Apr, ActiveStart: 01-24-2022 End: 77-81-9264jhxx 1 tablet by mouth every six hours as needed for pain Oxycodone-Acetaminophen 5-325 mg Tablet Discontinued 1 TAB PO Q6H as needed for Pain 7 7 0 January 24, 2022 February 05, 2024 8:06am Fracture of right wristStart: 01-14-2022 End: 20-61-7196behq 1 tablet by mouth once daily as needed for painOxycodone- Acetaminophen 5-325 mg tablet Discontinued 1 TAB PO Daily as needed for Pain January 13, 2022 11:00pm January 24, 2022 2:09pmStart: 90-65-7753rigv 1 tablet by mouth every six hoursacetaminophen-oxycodone 325 mg-5 mg oral tablet tab(s), Oral, q6hr, Refill(s) 0 Start Date: 10/26/20atus: Ordered Repeat number: 1 Start: 62-31-7141oygl 1 tablet by mouth every six hoursacetaminophen-oxycodone 325 mg-5 mg oral tablet tab(s), Oral, q6hr, Refill(s) 0 Start Date: 10/26/20 Status: OrderedStart: 03-26-2017 End: 44-66-0069eizj 1 tablet by mouth every six hours as needed for pain Oxycodone-Acetaminophen 5-325 mg Tablet Discontinued 1 TAB PO Q6H as needed for Pain Scale 1 - 5 4014 0 March 25, 2017 11:00pm April 02, 2017 8:59am Start: 03-13-2017 End: 97-98-4565mvjx 1 tablet by mouth every four to six hours as needed for pain Oxycodone-Acetaminophen 5-325 mg Tablet Discontinued 1 TAB PO EVERY 4-6 HOURS as needed for Pain March 12, 2017 11:00pm April 02, 2017 8:59amStart: 55-55-8642IORTVMXVV-ACETAMINOPHEN 5-325 mg ORAL tablet as needed. 07/19/2011 ActiveComment on above:as needed.amoxicillin 500 mg oral capsule (20 sources)Penicillin-class AntibacterialStart: 01-12-2024 End: 78-89-2382uoup 2 capsules by mouth every twelve hoursAmoxicillin 500 mg capsule Discontinued 1000 MG PO Every 12 hours 40 10 0 January 11, 2024 11:00pm February 05, 2024 7:16amStart: 01-12-2024 End: 23-44-6460apwi 1000 mg by mouth every twelve hoursAmoxicillin Discontinued 1000 MG PO Every 12 hours 40 10 January 11, 2024 11:00pm February 05, 2024 7:16am calcium carbonate 1250 mg / cholecalciferol 200 unt oral tablet (20 sources)Vitamin DStart: 04-02-2017 End: 77-01-8994sumf 1 tablet by mouth once daily in the morningCalcium Carbonate-Vitamin D3 (Oyster Shell Calcium-Vit D3) 500 mg-5 mcg (200 unit) Tablet Discontinued 1 TAB PO Every morning January 23, 2022 11:00pm December 16, 2024 1:37pmStart: 03-13-2017 End: 74-36-4601jnbk 1 tablet by mouth once dailyCalcium Carbonate-Vitamin D3 (Calcium 600 + D(3)) 600 mg(1,500mg) -200 unit Tablet Discontinued 1 TAB PO daily March 12, 2017 11:00pm April 02, 2017 8:58am Osteoporosis preventionCalcium Carbonate-Vitamin D3 (Oyster Shell Calcium-Vit D3) 500 mg(1,250mg) -200 unit Tablet (20 sources)Start: 04-02-2017 End: 28-79-8605lhyf 1 tablet by mouth once daily in the morningCalcium Carbonate-Vitamin D3 (Oyster Shell Calcium-Vit D3) 500 mg(1,250mg) -200 unit Tablet Discontinued 1 TAB PO Every morning April 01, 2017 11:00pm January 24, 2022 2:09pmStart: 04-02-2017 End: 41-34-2840yvcu 1 tablet by mouth once daily in the morningCalcium Carbonate-Vitamin D3 (Oyster Shell Calcium-Vit D3) 500 mg(1,250mg) -200 unit Tablet Discontinued 1 TAB PO Every morning April 02, 2017 12:00am January 24, 2022 3:09pmCalcium Carbonate-Vitamin D3 (Oyster Shell Calcium-Vit D3) 500 mg-5 mcg (200 unit) Tablet (20 sources)Start: 01-24-2022 End: 88-33-0631bcva 1 tablet by mouth once daily in the morningCalcium Carbonate-Vitamin D3 (Oyster Shell Calcium-Vit D3) 500 mg-5 mcg (200 unit) Tablet Discontinued 1 TAB PO Every morning January 24, 2022 12:00am December 16, 2024 2:37pmStart: 03-58-6970frcr 1 tablet by mouth once daily in the morningCalcium Carbonate-Vitamin D3 (Oyster Shell Calcium-Vit D3) 500 mg-5 mcg (200 unit) Tablet Active 1 TAB PO Every morning January 23, 2022 11:00pm Start: 21-38-1781xlku 1 tablet by mouth once daily in the morningCalcium Carbonate-Vitamin D3 (Oyster Shell Calcium-Vit D3) 500 mg-5 mcg (200 unit) Tablet Active 1 TAB PO Every morning January 24, 2022 12:00amcitalopram 40 mg oral tablet (20 sources)Serotonin Reuptake InhibitorStart: 03-13-2017 End: 18-84-6626zmqv 1 tablet by mouth once daily in the morningCitalopram 40 mg Tablet Discontinued 40 MG PO Every morning April 01, 2017 11:00pm January 13, 2022 3:43pmStart: 02-20-2004 End: 66-46-2677CMDOMU 20MG TABLET Indications: Other specified idiopathic peripheral neuropathy Take one(1) tabletdaily. 0 02/20/2004 04/04/2022 Discontinued (Discontinued by another Health Care Provider)Comment on above:Take one(1) tablet daily.cyclobenzaprine hydrochloride 5 mg oral tablet (20 sources)Muscle RelaxantStart: 04-02-2017 End: 92-10-5133tdpo 1 tablet by mouth every eight hours as needed for muscle spasmsCyclobenzaprine 5 mg Tablet Discontinued 5 MG PO Q8H as needed for Muscle Spasm 60 0 April 01, 2017 11:00pm January 13, 2022 3:43pmdicyclomine hydrochloride 20 mg oral tablet (20 sources)AnticholinergicStart: 04-05-2024 End: 36-88-9670eooe 1 tablet by mouth twice dailyDicyclomine 20 mg tablet Discontinued 20 MG PO Twice daily 60 1 April 04, 2024 11:00pm December 16, 2024 1:37pmStart: 17-80-1762ihha 1 tablet by mouth twice daily as needed Dicyclomine HCl 20 MG 1 tablet Orally TWICE A DAY NEEDED Dec, Not-Takingdocusate sodium 100 mg oral capsule (20 sources)Start: 04-02-2017 End: 72-55-2133fgtd 1 capsule by mouth twice dailyDocusate Sodium 100 mg Capsule Discontinued 100 MG PO Twice daily 60 0 April 01, 2017 11:00pmJuly 2021 3:43pmdocusate sodium 50 mg / sennosides, custodial 8.6 mg oral tablet (20 sources)Start: 03-26-2017 End: 01-51-5773mxru 1 tablet by mouth twice dailySennosides-Docusate Sodium (Dok Plus) 8.6-50 mg Tablet Discontinued 1 TAB PO Twice daily 40 14 0 March 25, 2017 11:00pm April 02, 2017 8:59amdoxycycline hyclate 100 mg oral capsule (3 sources)Tetracycline-class DrugStart: 04-28-2025 End: 91-05-1505weoe 1 capsule by mouth twice dailyDoxycycline Hyclate 100 mg capsule Discontinued 100 MG PO Twice daily 20 10 0 April 27, 2025 11:00pm May 18, 2025 2:45pm72 hr fentaNYL 0.025 mg/hr transdermal system (20 sources)Opioid AgonistStart: 03-26-2017 End: 25-36-8279Fdxxilmf 25 mcg/hr Patch 72 Hour Discontinued 25 MCG TRANSDERML Every 72 hours 5 14 0 March 25, 2017 11:00pm April 02, 2017 8:58am ferrous sulfate 324 mg delayed release oral tablet (20 sources)Start: 03-26-2017 End: 78-99-5314vwkq 1 tablet by mouth twice dailyFerrous Sulfate 324 mg (65 mg iron) Tablet,Delayed Release (Dr/Ec) Discontinued 324 MG PO Twice daily 60 0 April 01, 2017 11:00pm January 13, 2022 3:44pmfurosemide 20 mg oral tablet (20 sources)Loop DiureticStart: 01-13-2022 End: 58-43-5102lczd 10 mg by mouth once dailyFurosemide 20 mg tablet Discontinued 10 MG PO Daily at 0800 January 13, 2022 3:48pm January 15, 2022 11:05am Start: 01-13-2022 End: 01-74-3319vntm 10 mg by mouth once dailyFurosemide Discontinued 10 MG PO Daily at 0800 January 13, 2022 3:48pm January 15, 2022 11:05amStart: 02-20-2004 End: 77-93-1764dqsu 1 tablet by mouth once dailyFurosemide 20 mg Tablet Discontinued 20 MG PO Daily at 0800 30 0 April 01, 2017 11:00pm January 13, 2022 3:48pmComment on above:Take one(1) tablet daily.Insulin Aspart U-100 (Novolog Flexpen U-100 Insulin) 100 unit/mL (3 mL) Insulin Pen (20 sources)Start: 01-15-2022 End: 34-73-0689Cacovka Aspart U-100 (Novolog Flexpen U-100 Insulin) 100 unit/mL (3 mL) Insulin Pen Discontinued 0 UNITS SUBCUT 3X/Day with meals and bedtime 0 January 14, 2022 11:00pm January 15, 2022 4:37pmStart: 01-15-2022 End: 81-81-8287Wcnupcc Aspart U-100 (Novolog Flexpen U-100 Insulin) 100 unit/mL (3 mL) Insulin Pen Discontinued 0 UNITS SUBCUT 3X/Day with meals and bedtime 0 January 15, 2022 12:00am January 15, 2022 5:37pmInsulin Aspart U-100 (Novolog Flexpen U-100 Insulin) 100 unit/mL (3 mL) insulin pen (20 sources)Start: 01-15-2022 End: 26-90-6112Pikwsjx Aspart U-100 (Novolog Flexpen U-100 Insulin) 100 unit/mL (3 mL) insulin pen Discontinued 0 UNITS SUBCUT 3X/Day with meals and bedtime January 15, 2022 5:37pm January 24, 2022 3:09pm Please contact the information source for Protocol details.Start: 01-15-2022 End: 49-46-4850Hzbitck Aspart U-100 (Novolog Flexpen U-100 Insulin) 100 unit/mL (3 mL) insulin pen Discontinued 0 UNITS SUBCUT 3X/Day with meals and bedtime January 15, 2022 4:37pm January 24, 2022 2:09pm Please contact the information source for Protocol details.Start: 01-15-2022 End: 65-07-2464Mqkgrig Aspart U-100 (Novolog Flexpen U-100 Insulin) 100 unit/mL (3 mL) insulin pen Discontinued 0 UNITS SUBCUT 3X/Day with meals and bedtime January 15, 2022 4:37pm January 24, 2022 2:09pmStart: 01-15-2022 End: 78-12-3531Uwqqiox Aspart U-100 (Novolog Flexpen U-100 Insulin) 100 unit/mL (3 mL) insulin pen Discontinued 0 UNITS SUBCUT 3X/Day with meals and bedtime January 15, 2022 5:37pm January 24, 2022 3:09pm3 ml insulin aspart, human 100 unt/ml pen injector (16 sources)Insulin AnalogStart: 01-15-2022 End: 33-32-4591Azusjnx Aspart U-100 (Novolog Flexpen U-100 Insulin) 100 [...] information source for Protocol details.Start: 01-15-2022 End: 35-77-2109Evtiqvs Aspart U-100 (Novolog Flexpen U-100 Insulin) 100 unit/mL (3 mL) Insulin Pen Discontinued 0 UNITS SUBCUT 3X/Day with meals and bedtime 0 0 January 14, 2022 11:00pm January 15, 2022 4:37pm3 ml insulin detemir 100 unt/ml pen injector (20 sources)Insulin AnalogStart: 01-24-2022 End: 82-95-5959Twrmaev Detemir U-100 (Levemir Flextouch U-100 Insuln) 100 unit/mL (3 mL) Insulin Pen Discontinued 25 UNITS SUBCUT Daily at bedtime 7.5 30 0 January 23, 2022 11:00pm October 21, 2023 2:11pmStart: 04-02-2017 End: 87-79-9679Uakenou Detemir U-100 (Levemir Flextouch U100 Insulin) 100 unit/mL (3 mL) Insulin Pen Discontinued 20 UNIT SUBCUT Daily at bedtime 6 30 0 April 01, 2017 11:00pm April 30, 2017 11:00pm May 01, 2017 11:03pmInsulin Glargine 100 unit/mL Cartridge (14 sources)Start: 01-13-2022 End: 22-59-4694sutuad 21 [IU] by subcutaneous injection once daily at bedtime Insulin Glargine 100 unit/mL Cartridge Discontinued 21 UNIT SUBCUT Daily at bedtime January 13, 2022 12:00am January 24, 2022 3:09pmStart: 01-13-2022 End: 28-22-7990ybougs 21 [IU] by subcutaneous injection once daily at bedtime Insulin Glargine 100 unit/mL Cartridge Discontinued 21 UNIT SUBCUT Daily at bedtime January 12, 2022 11:00pm January 24, 2022 2:09pmlevoFLOXacin 750 mg oral tablet (20 sources)Quinolone AntimicrobialStart: 01-15-2022 End: 94-84-7351djmu 1 tablet by mouth once dailyLevofloxacin 750 mg tablet Discontinued 750 MG PO Daily 1 1 0 January 14, 2022 11:00pm January 24, 2022 2:09pm next dose 7/7lidocaine 0.05 mg/mg medicated patch (20 sources)Antiarrhythmic, Amide Local AnestheticStart: 04-02-2017 End: 41-98-7183Ewtrkopej 5 % Adhesive Patch,Medicated Discontinued 2 EACH TOPICAL Daily 20 0 April 01, 2017 11:00pm January 13, 2022 3:45pmmelatonin 5 mg oral tablet (20 sources)Start: 01-15-2022 End: 08-44-9870qcom 2 tablets by mouth once daily at bedtimeMelatonin 5 mg Tablet Discontinued 10 MG PO Daily at bedtime 60 30 0 January 23, 2022 11:00pm October 21, 2023 2:12pmStart: 01-15-2022 End: 50-96-1285teze 10 mg by mouth once daily at bedtimeMelatonin Discontinued 10 MG PO Daily at bedtime 60 30 January 23, 2022 11:00pm October 21, 2023 2:12pm End: 77-44-8541KBBGHHZTL ORAL Take by mouth. 0 02/07/2023 DiscontinuedMelatonin 10 MG as directed Orally ActiveMELATONIN ORAL Take by mouth. 0 ActiveComment on above:Take by mouth.Multivitamin (Multiple Vitamins) Tablet (20 sources)Start: 03-13-2017 End: 22-07-5997xvqs 1 tablet by mouth once dailyMultivitamin (Multiple Vitamins) Tablet Discontinued 1 TAB PO Daily March 12, 2017 11:00pm April 02, 2017 8:59am SupplementStart: 03-13-2017 End: 65-10-5513frcy 1 tablet by mouth once dailyMultivitamin (Multiple Vitamins) Tablet Discontinued 1 TAB PO Daily March 12, 2017 11:00pm April 02, 2017 8:59amStart: 03-13-2017 End: 90-12-1591uztd 1 tablet by mouth once dailyMultivitamin (Multiple Vitamins) Tablet Discontinued 1 TAB PO Daily March 13, 2017 12:00am April 02, 2017 9:59amnitrofurantoin, macrocrystals 25 mg / nitrofurantoin, monohydrate 75 mg oral capsule (20 sources)Nitrofuran AntibacterialStart: 05-11-2024 End: 00-05-0056lwpy 1 capsule by mouth twice daily at mealtimeNitrofurantoin Monohyd/M-Cryst (Macrobid) 100 mg capsule Discontinued 100 MG PO Twice daily 14 7 0 May 10, 2024 11:00pm August 11, 2024 1:12pm must administer with a meal/foodStart: 10-20-2023 End: 04-92-4697lnrq 1 capsule by mouth twice daily at mealtimeNitrofurantoin Monohyd/M-Cryst (Macrobid) 100 mg capsule Discontinued 100 MG PO Twice daily 14 0 October 20, 2023 3:08pm January 12, 2024 1:24pm must administer with a meal/food predniSONE 20 mg oral tablet (8 sources)Start: 04-28-2025 End: 49-38-0459uqpr 3 tablets by mouth once daily at [...] orally WITH FOOD OR MILK;Start: 04-26-2025 End: 20-08-8376pqrg 1 tablet by mouth twice dailyPrednisone 20 mg tablet Discontinued 20 MG PO Twice daily 10 5 0 April 25, 2025 11:00pm May 18, 2025 2:46pmSennosides (Senna Lax) 8.6 mg Tablet (20 sources)Start: 04-02-2017 End: 69-00-0272Avyxtxjieh (Senna Lax) 8.6 mg Tablet Discontinued 2 EACH PO DAILY@12 as needed for If no BM in 2 days April 02, 2017 12:00am January 13, 2022 4:47pmStart: 04-02-2017 End: 13-45-0251Wnnkphvuhy (Senna Lax) 8.6 mg Tablet Discontinued 2 EACH PO DAILY@12 as needed for If no BM in 2 days April 01, 2017 11:00pm January 13, 2022 3:47pmStart: 04-02-2017 End: 80-18-1689Xgqlwgdxkn (Senna Lax) 8.6 mg Tablet Discontinued 2 EACH PO DAILY@12 April 01, 2017 11:00pm January 13, 2022 3:47pmStart: 04-02-2017 End: 76-48-2594Rnfyrvywjo (Senna Lax) 8.6 mg Tablet Discontinued 2 EACH PO DAILY@12 April 02, 2017 12:00am January 13, 2022 4:47pmsennosides, custodial 8.6 mg oral tablet (8 sources)Start: 04-02-2017 End: 13-03-3799Sgstoukgvu (Senna Lax) 8.6 mg Tablet Discontinued 2 EACH PO DAILY@12 as needed for If no BM in 2 days 30 0 April 01, 2017 11:00pm January 13, 2022 3:47pmsulfamethoxazole 800 mg / trimethoprim 160 mg oral tablet (20 sources)Dihydrofolate Reductase Inhibitor Antibacterial, Sulfonamide AntimicrobialStart: 03-26-2017 End: 86-54-0421eine 1 tablet by mouth twice dailySulfamethoxazole-Trimethoprim 800-160 mg Tablet Discontinued 1 TAB PO Twice daily 6 0 April 01, 2017 11:00pm January 13, 2022 3:47pmtraMADol hydrochloride 50 mg oral tablet (20 sources)Opioid AgonistStart: 01-15-2022 End: 65-36-7556whqe 1 tablet by mouth every eight hours as needed for pain Tramadol 50 mg Tablet Discontinued 50 MG PO Q8H as needed for Pain Scale 4 - 7 0 0 January 14, 2022 11:00pm January 15, 2022 4:36pmtriamcinolone acetonide 40 mg/ml injectable suspension (20 sources)CorticosteroidStart: 99-69-5505Teoqkkf-40 Oct, 20 mgStart: 12-89-4778Yfbmihr -40 mg Apr, 40 mgTRIAMTERENE-HCTZ 37.5-25 TB (2 sources)Start: 02-20-2004 End: 50-23-6604SAXOIRKXZMR-HCTZ 37.5-25 TB Indications: Other specified idiopathic peripheral neuropathy Take one(1) tablet daily. 0 02/20/2004 04/04/2022 Discontinued (Discontinued by another Health Care Provider)Start: 36-75-7637ROIHWJFZPFK-HCTZ 37.5-25 TB Indications: Other specified idiopathic peripheral neuropathy Take one(1) tablet daily. 0 02/20/2004 ActiveComment on above:Take one(1) tablet daily.trospium chloride 20 mg oral tablet (20 sources)Cholinergic Muscarinic AntagonistStart: 02-24-2024 End: 62-24-5653nlbc 1 tablet by mouth twice dailyTrospium 20 mg tablet Discontinued 20 MG PO Twice daily March 07, 2024 11:00pm November 10, 2024 2 :54pmzolpidem tartrate 5 mg oral tablet (20 sources)gamma-Aminobutyric Acid-ergic AgonistStart: 10-16-2023 End: 20-89-9905rnwh 1 tablet by mouth once daily at bedtimeZolpidem 5 mg tablet Discontinued 5 MG PO Daily at bedtime 90 90 1 October 16, 2023 11:43am April 142023 12:01pm Insomnia Insomnia, unspecifiedStart: 59-78-3648ytnz 1 tablet by mouth once daily at bedtimeAmbien 5 MG 1 tablet Orally qd hs Sep, ActiveStart: 92-07-5734fdio 1 tablet by mouth once daily at bedtime as needed for sleepAmbien 10 mg Tab 10 mg = 1 tab(s), Oral, Once a day (at bedtime), PRN for sleep, Refills(s) 0 StartDate: 10/26/20 Status: Ordered Repeat number: 1 Start: 54-36-3033cssl 0.5 tablet by mouth once daily at bedtime as neededAmbien 10 mg 1/2 tablet at bedtime as needed Orally Once a day for 90 days Apr, ActiveStart: 03-13-2017 End: 48-79-2233dnks 1 tablet by mouth once daily at [...] hammer toe(s) (acquired), right foot]Onset: 12-27-2021 Resolved: 63-44-8348RfxucjuGrkclqya foot deformities (20 sources)Acquired hammer toe of left foot; Translations: [Other hammer toe(s) (acquired), left foot]Onset: 12-27-2021 Resolved: 92-82-9319MxoyjlxAmvbz and unspecified renal failure (20 sources)Injury of kidney; Translations: [Acute kidney failure, unspecified] 36-20-0153KzmdokgfJlmfg bronchitis (7 sources)Bronchiolitis; Translations: [Acute bronchiolitis, unspecified] 91-28-1333HmsiwuzmWtsirlovsnmpkw/social admission (20 sources)Other reduced mobility; Translations: [Impaired mobility and activities of daily living]73-19-4015RuhxjrjdLudoyiu dysrhythmias (14 sources)Premature beats; Translations: [Other premature depolarization] 77-49-6957FnzcsmqItqggaa kidney disease (20 sources)Chronic kidney disease stage 3B ; Translations: [Stage 3b chronic kidney disease]28-21-3763IwavdkaWwakvykskt and other anemia (20 sources)Anemia; Translations: [Anemia, unspecified]62-23-3607Xgymahfi Diabetes mellitus with complications (20 sources)Type II diabetes mellitus uncontrolled; Translations: [Type 2 diabetes mellitus with hyperglycemia]Onset: 07-14-2009 Resolved: 52-36-6407WsfkcahQjnwjqlt mellitus without complication (20 sources)Diabetes mellitus; Translations: [Type 2 diabetes mellitus without complications]Onset: 552541-27-8687FswydxsVcklbenp of white blood cells (20 sources)Lymphocytosis; Translations: [Lymphocytosis (symptomatic)]Onset: 04-04-2021 Resolved: 96-01-3521YjnehgvWfthcjgfc of lipid metabolism (20 sources)Hyperlipidemia; Translations: [Hyperlipidemia, unspecified]Onset: 04-04-2021 Resolved: 06-25-6811XznxuqkJdrmrkfumwsulh and diverticulitis (20 sources)Diverticulitis; Translations: [Diverticulitis of intestine, part unspecified, without perforation or abscess without bleeding]Onset: 04-04-2021 Resolved: 45-04-8203OgygzahN Codes: Fall (20 sources)Fall; Translations: [Unspecified fall, initial encounter]01-14-2022 EpisodicEssential hypertension (20 sources)Hypertensive disorder; Translations: [Essential (primary) hypertension]Onset: 07-14-2009 Resolved: 87-97-2344DbvmyzrJqrmr and electrolyte disorders (18 sources)Hyperkalemia; Translations: [Hyperkalemia]75-56-1018BrxfavyjHpvpigsd of upper limb (20 sources)Fracture of unspecified carpal bone, right wrist, initial encounter for closed fracture; Translations: [Fracture at wrist and/or hand level]Onset: 02-06-2022 Resolved: 34-63-5533LeljsafyFmqvyroxhzxeb symptoms and ill-defined conditions (20 sources)Mixed incontinence; Translations: [Genuine stress incontinence] Onset: 63-78-9735WzwtccrJbzzcbwhlyepr symptoms and ill-defined conditions (4 sources)Increased frequency of urination; Translations: [Poor stream of urine]39-94-3717DcfzvqidLgyabxki; including migraine (20 sources)Migraine; Translations: [Migraine, unspecified, not intractable, without status migrainosus]ChronicHeadache; including migraine (4 sources)Kstksnoy10-73-7384AlzgepxeEyzwigzlndxj with complications and secondary hypertension (17 sources)Chronic kidney disease due to hypertension; Translations: [Hypertensive chronic 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 4 chronic kidney disease, or unspecified chronic kidney disease]92-22-8645YydkomhIsioqvmjoyzwl and screening for infectious disease (3 sources)Encounter for immunization; Translations: [Flu vaccine need Z23] Onset: 04-04-2021 Resolved: 90-62-5434GlsogefpOblfoutdi (20 sources)Chronic lymphoid leukemia, disease; Translations: [Chronic lymphocytic leukemia of B-cell type not having achieved remission]Onset: 45-49-3837JycjxgyYegkltllqisoc (1 source)Axillary lymphadenopathy; Translations: [Localized enlarged lymph nodes]EpisodicMalaise and fatigue (6 sources)Fatigue; Translations: [Other fatigue]83-93-0864LjqffngyBzbzcrbtvl disorders (18 sources)Atrophy of vagina; Translations: [Postmenopausal atrophic vaginitis] Onset: 312140-86-6244SvrgmrwEmsgvmsdswejd mental health disorders (17 sources)Chronic insomnia; Translations: [Psychophysiologic insomnia] 65-38-2103SneqagwYdsd disorders (20 sources)Major depressive disorder, single episode, unspecified; Translations: [Depression]Onset: 04-04-2021 Resolved: 75-70-6712MndrdmcXemxwqf (20 sources)Onychomycosis; Translations: [Tinea unguium]Onset: 12-08-2022 25-34-3274EwfkwgddDudgccusfytj breast conditions (1 source)Breast signs and symptoms; Translations: [Other signs and symptoms in breast]EpisodicNutritional deficiencies (20 sources)Vitamin D deficiency; Translations: [Vitamin D deficiency, unspecified]50-09-6131PlotozgVlsatwzyhjifmx (9 sources)Arthritis; Translations: [Osteoarthritis of right hip joint]Onset: 105790-57-9085TpdzgbzShjqg acquired deformities (20 sources)Deformity of foot; Translations: [Unspecified acquired deformity of unspecified lower leg]24-20-9395TlnlpleuRnwtj aftercare (6 sources)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; Translations: [Long-term (current) use of other medications]Onset: 02-06-2022 Resolved: 05-89-4512KmyeyfeoLnawu aftercare (20 sources)Long-term current use of drug therapy; Translations: [Other long-term (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 therapy]84-94-7399IkwagawhOlusg aftercare (2 sources)H/O: high risk medication; Translations: [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]90-83-0879DgiwxpwkJscft aftercare (1 source)Drug therapy finding; Translations: [Other long-term (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 therapy]88-74-1922IsrbbxbuSryuw aftercare (1 source)nursing home (current) use of insulin; Translations: [Type 2 diabetes mellitus without complication, with long-term current use of insulin (HCC)] Onset: 26-82-2506RpztsimxYqugq and unspecified benign neoplasm (20 sources)History of polyp of colon; Translations: [Personal history of colonic polyps]EpisodicOther and unspecified benign neoplasm (1 source)Benign lipomatous neoplasm, unspecifiedEpisodicOther and unspecified benign neoplasm (1 source)Senile angioma; Translations: [Hemangioma of skin and subcutaneous tissue]55-86-8253TkilltlzZquwt and unspecified benign neoplasm (1 source)Lipoma of right upper limb; Translations: [Benign lipomatous neoplasm of skin and subcutaneous tissue of right arm]84-99-1975PedxpdmtHmqya circulatory disease (20 sources)Low blood pressure; Translations: [Hypotension, unspecified] 12-16-0483FdgtvntbGubxy circulatory disease (1 source)Hypotension, unspecified; Translations: [Hypotension, unspecified] 00-42-4164KqvkjnbpOzbtf connective tissue disease (18 sources)Artificial knee joint present; Translations: [Presence of unspecified artificial knee joint]Onset: 961032-51-5780UxefgodYtkri connective tissue disease (20 sources)Fibromyalgia; Translations: [Fibromyalgia]61-12-1899UoysblztKjphf connective tissue disease (10 sources)Rheumatism, unspecified; Translations: [Rheumatism, unspecified and fibrositis]Onset: 04-04-2021 Resolved: 54-91-0196EozskwtfMhgta connective tissue disease (20 sources)Rheumatism; Translations: [Rheumatism, unspecified]10-26-2020 EpisodicOther connective tissue disease (1 source)Pain in both feet; Translations: [Pain in right foot]08-28-2023 EpisodicOther connective tissue disease (1 source)Fibromyalgia; Translations: [Fibromyalgia]Onset: 49-68-4825Mqzmzuhi Other diseases of bladder and urethra (20 sources)Bladder irritability; Translations: [Other specified disorders of bladder]93-15-9366EqbwtcgEgmvs diseases of bladder and urethra (20 sources)Spasm of bladder; Translations: [Other specified disorders of bladder]ChronicOther diseases of bladder and urethra (2 sources)Other specified disorders of bladder; Translations: [Bladder instability N32.89]Onset: 04-04-2021 Resolved: 15-80-1954DjzpxpdFeung diseases of bladder and urethra (2 sources)Detrusor overactivity; Translations: [Overactive bladder]Onset: 00-53-1425BxqerbhFoyjb diseases of bladder and urethra (20 sources)Overactive bladder; Translations: [Overactive bladder]Onset: 654687-50-6757RnesqbhGwqqg ear and sense organ disorders (1 source)Otalgia, right ear; Translations: [Otalgia, unspecified]EpisodicOther gastrointestinal disorders (20 sources)Irritable bowel syndrome; Translations: [Irritable bowel syndrome without diarrhea]ChronicOther gastrointestinal disorders (20 sources)Irritable bowel syndrome with diarrhea; Translations: [Irritable bowel syndrome with diarrhea]08-13-2175AqpozldXxlux gastrointestinal disorders (4 sources)Irritable bowel syndrome without diarrheaOnset: 09-13-2021 Resolved: 48-90-4060KhswrulKwogf gastrointestinal disorders (9 sources)Irritable bowel syndrome with diarrhea; Translations: [Irritable bowel syndrome]Onset: 12-17-2021 Resolved: 69-64-1833HttgjrfXlusr gastrointestinal disorders (20 sources)Constipation; Translations: [Constipation, unspecified]Onset: 425355-92-7478OeskfhrqBrcig gastrointestinal disorders (20 sources)Dysphagia; Translations: [Dysphagia, unspecified]EpisodicOther gastrointestinal disorders (19 sources)Diarrhea; Translations: [Diarrhea, unspecified]Onset: 06-23-2024 81-88-1945JyftcrbaEcihg injuries and conditions due to external causes (3 sources)Other injury of unspecified body region, initial encounter; Translations: [Abrasion or friction burn of other, multiple, and unspecified sites, without mention of infection]Onset: 02-06-2022 Resolved: 62-75-8828VfcmjspgYonbr injuries and conditions due to external causes (20 sources)Minor head injury; Translations: [Unspecified injury of head, initial encounter]66-00-4277WhwxfeglKyzku injuries and conditions due to external causes (20 sources)Abrasion; Translations: [Other injury of unspecified body region, initial encounter]06-56-2076WqssxljnDmxlq injuries and conditions due to external causes (3 sources)Unspecified injury of head, initial encounter; Translations: [Head injury, unspecified]61-88-2743UynrzijdJptsk liver diseases (20 sources)Steatosis of liver; Translations: [Fatty (change of) liver, not elsewhere classified]ChronicOther liver diseases (1 source)Abnormal levels of other serum enzymesEpisodicOther lower respiratory disease (20 sources)Solitary nodule of lung; Translations: [Solitary pulmonary nodule] EpisodicOther lower respiratory disease (1 source)Rib pain; Translations: [Pleurodynia]EpisodicOther lower respiratory disease (4 sources)Nodule of aiqm06-30-7579EhnicmmhGrxel lower respiratory disease (1 source)PleurodyniaEpisodicOther nervous system disorders (20 sources)Neuropathy; Translations: [Polyneuropathy, unspecified]10-26-2020 ChronicOther nervous system disorders (20 sources)Polyneuropathy, unspecified; Translations: [Mononeuritis of unspecified site]Onset: 04-04-2021 Resolved: 93-83-2392BieumczIjayc nervous system disorders (20 sources)Peripheral nerve disease ; Translations: [Polyneuropathy, unspecified]42-46-0955EfvabycAcaxc nervous system disorders (2 sources)Disturbance of attention; Translations: [Attention and concentration deficit]01-24-9127PzvyossKfhya nervous system disorders (2 sources)Chronic pain; Translations: [Other chronic pain]12-72-9457Ancxfin Other nervous system disorders (20 sources)Nervous system symptoms; Translations: [Other abnormalities of gait and mobility]EpisodicOther nervous system disorders (2 sources)Other abnormalities of gait and mobilityOnset: 02-06-2022 Resolved: 52-46-9992NycgjawyXwigr nervous system disorders (20 sources)Postoperative pain ; Translations: [Other acute postprocedural pain] 07-92-1276XwvrpqxaHrnex nervous system disorders (6 sources)Impaired cognition; Translations: [Other symptoms and signs involving cognitive functions and awareness]01-02-6416AeidcpzwJqnnd nervous system disorders (2 sources)Word finding difficulty ; Translations: [Other speech disturbances] 96-71-2285TzdscdcsSylqk non-traumatic joint disorders (4 sources)Sacroiliac qrzwndum28-08-2931ChvaxfcdVrnjc non-traumatic joint disorders (1 source)Pain in unspecified hipEpisodicOther non-traumatic joint disorders (1 source)Pain in right hipEpisodicOther non-traumatic joint disorders (17 sources)Hip pain; Translations: [Pain in left hip]59-12-5978YcfmgxxgWwsmw non-traumatic joint disorders (12 sources)Pain in left knee; Translations: [Pain in joint, lower leg] 33-90-6608ReiypyykFoovl nutritional; endocrine; and metabolic disorders (20 sources)Obese class I; Translations: [Body mass index (BMI) 31.0-31.9, adult]ChronicOther nutritional; endocrine; and metabolic disorders (1 source)Body mass index (BMI) 31.0-31.9, adultChronicOther nutritional; endocrine; and metabolic disorders (15 sources)Body mass index 30+ - obesity; Translations: [Body mass index (BMI) 32.0-32.9, adult]51-47-6122KhdtthpKneoo nutritional; endocrine; and metabolic disorders (2 sources)Body mass index (BMI) 32.0-32.9, adult; Translations: [Body Mass Index 32.0-32.9, adult]97-36-7917UazfdyfYytrh nutritional; endocrine; and metabolic disorders (2 sources)Abnormal weight loss; Translations: [Weight loss R63.4]Onset: 04-04-2021 Resolved: 03-81-4038SupogxitRfyey screening for suspected conditions (not mental disorders or infectious disease) (20 sources)Encounter for screening mammogram for malignant neoplasm of breast; Translations: [Other specified abnormal findings of blood chemistry]Onset: 04-04-2021 Resolved: 32-23-2059RstxgbriDfdif skin disorders (10 sources)Hidradenitis; Translations: [Hidradenitis suppurativa]02-15-2025 EpisodicComment on above:right axillaOther skin disorders (1 source)Seborrheic keratosis; Translations: [Other seborrheic keratosis] 13-80-7621WiuncodbEtdsj skin disorders (1 source)Actinic keratosis; Translations: [Actinic keratosis]32-14-9166Knbvgwxz Other skin disorders (1 source)Lentiginosis; Translations: [Other melanin hyperpigmentation] 92-96-2461IozwyulxZoscil media and related conditions (20 sources)Otitis media of right ear; Translations: [Otitis media, unspecified, right ear]76-22-0418EimghovfYleuegzd codes; unclassified (7 sources)Sedative, hypnotic AND/OR anxiolytic-induced sleep disorder; Translations: [Other sleep disorders]96-51-4282HzxvqspEtrmhsrr codes; unclassified (10 sources)Other sleep disorders; Translations: [Other sleep disturbances] 10-03-9412VbgoaycLkoefqgf codes; unclassified (20 sources)Insomnia; Translations: [Insomnia, unspecified]68-99-4418Kgyqjrin Residual codes; unclassified (12 sources)Insomnia, unspecified; Translations: [Insomnia, unspecified]Onset: 04-04-2021 Resolved: 23-08-5197XpxbyjklDngkivcv codes; unclassified (5 sources)Edema, unspecified; Translations: [Peripheral edema R60.9]Onset: 04-04-2021 Resolved: 55-31-0370GdpdropbQsbhoxiv codes; unclassified (20 sources)History of operative procedure on lumbosacral spinal structure; Translations: [Other specified postprocedural states]78-75-5011RaojtpfsGdlvfqug codes; unclassified (20 sources)Peripheral edema; Translations: [Localized edema]48-29-2172Safkqyyw Residual codes; unclassified (4 sources)Localized edema; Translations: [Edema]46-61-2194EksbexvjMasajqgl codes; unclassified (17 sources)Memory impairment; Translations: [Other amnesia]87-40-4850Khyyhjdl Residual codes; unclassified (4 sources)Other amnesia; Translations: [Memory loss]31-78-2072CjsolwqyHgncydmq codes; unclassified (2 sources)Amnesia; Translations: [Other amnesia]57-68-2371HswpqqfjRvwrgial codes; unclassified (2 sources)Family history of dementia; Translations: [Family history of other mental and behavioral disorders]82-72-5146AheaophuAxinrkburd arthritis and related disease (18 sources)Rheumatoid arthritis; Translations: [Rheumatoid arthritis, unspecified]Onset: 625021-51-9616LksakuqBegosxtacd (except in labor) (20 sources)Sepsis; Translations: [Sepsis, unspecified organism]01-13-2022 EpisodicSpondylosis; intervertebral disc disorders; other back problems (20 sources)Lumbosacral spondylosis without myelopathy; Translations: [Other spondylosis with radiculopathy, lumbar region]Onset: 06-18-2021 Resolved: 21-55-6682ZldkpamQkpygqlhytf; intervertebral disc disorders; other back problems (20 sources)Low back pain; Translations: [Cervicalgia]Onset: 04-04-2021 Resolved: 02-70-2131ZkmnsyfeYcxsqqzhezn injury; contusion (20 sources)Hematoma of right lower leg; Translations: [Contusion of right lower leg, initial encounter]66-38-4684ZfwwwoczDictsyu disorders (20 sources)Hypothyroidism; Translations: [Hypothyroidism, unspecified]Onset: 04-04-2021 Resolved: 13-91-1544JncflmxWjernngleili (1 source)Cough, unspecified; Translations: [Cough, unspecified]Onset: 04-26-2025 Past or Other Problems Problem ClassificationProblemDateDocumented DateEpisodic/ChronicDeficiency and other anemia (1 source)Anemia, unspecifiedOnset: 10-02-2021 Resolved: 13-86-6510LsdfgeumXnxqy acquired deformities (1 source)Unspecified acquired deformity of unspecified lower legOnset: 12-27-2021 Resolved: 24-81-6738QbasriohMjhcn and unspecified benign neoplasm (2 sources)Personal history of colonic polypsOnset: 09-13-2021 Resolved: 43-23-2608BybwyibcYjkiw connective tissue disease (18 sources)Left achilles tendonitis; Translations: [Achilles tendinitis, left leg]Onset: 231419-87-8917IydhopjwEdlfq connective tissue disease (18 sources)Calcaneal spur; Translations: [Calcaneal spur, unspecified foot] Onset: 780797-14-1454UgssnellDrvgb female genital disorders (18 sources)Burning sensation of vulva; Translations: [Other specified conditions associated with female genital organs and menstrual cycle]Onset: 910965-45-5601TunxijftXlcsm gastrointestinal disorders (1 source)Dysphagia, unspecifiedOnset: 01-07-2022 Resolved: 76-31-9127FdidvnnxCgnze gastrointestinal disorders (3 sources)Change in bowel habit; Translations: [Change in bowel habit]Onset: 09-13-2021 Resolved: 68-30-8986PcunwalwGyxgs nervous system disorders (18 sources)Notalgia paresthetica; Translations: [Paresthesia of skin]Onset: 470661-97-2412ZmqpbhbnPkjff nervous system disorders (18 sources)Unsteady when standing; Translations: [Unsteadiness on feet]Onset: 133693-29-0616ModjzfeiSvexs non-traumatic joint disorders (20 sources)Pain in right knee; Translations: [Pain in joint, lower leg]Onset: 07-24-2011 Resolved: 20-24-0774VhhewxpuCqcfb non-traumatic joint disorders (1 source)Pain in unspecified knee; Translations: [Knee pain M25.569]Onset: 04-04-2021 Resolved: 23-87-4752LvmyisvbLgrck non-traumatic joint disorders (6 sources)Pain in left hip; Translations: [Pain in joint, pelvic region and thigh]Onset: 53-35-9690VmxthdhiYjvfdpykipco (2 sources)Cough R05.9Onset: 10-01-2021 Resolved: 33-37-4729Hdxdrmhpdbsd (1 source)Lumbar pain M54.50Urinary tract infections (20 sources)Cystitis, unspecified without hematuria; Translations: [Acute urinary tract infection]Onset: 06-18-2021 Resolved: 55-90-9277Abybbxov Results Test NameValueInterpretationReference RangeFacilityMM screening mammo BI w/CADon 66-81-4312GL screening mammo BI w/CAD[facility] [address] [place] [address] Mammography Report Signed Patient: Kathy Washburn MR#: [id number] : 1940 Acct:[id number] Age/Sex: 84 / F Adm Date: 05/19/25 Loc: [place] Room: Type: [facility] Attending Dr: Ayanna Vicente DO Ordering Provider: Ayanna Vicente DO Date of Service: 05/19/25 Procedure(s): MM screening mammo BI w/CAD Accession Number(s): ([id number]) MM/MM screening mammo BI w/CAD: Z12.31 - [...] Pacheco M.D. 05/19/2025 3:39 PM Dictation Location: [facility] Dictated By: Favian Pacheco II, MD 05/19/25 1533 Signed By: 05/19/[address] [place] [address] Physician GroupMammography reportOrdered By: Favian Pacheco on 24-91-3301Kengavxdks imaging study [facility] [address] [place] [address] Mammography Report Signed Patient: Kathy Washburn MR#: [id number] : 1940 Acct:[id number] Age/Sex: 84 / F Adm Date: 5 Loc: [place] Room: Type: [facility] Attending Dr: Ayanna Vicente DO Ordering Provider: Ayanna Vicente DO Date of Service: 05/19/25 Procedure(s): MM screening mammo BI w/CAD Accession Number(s): ([id number]) MM/MM screening mammo BI w/CAD: Z12.31 - [...] Pacheco M.D. 05/19/2025 3:39 PM Dictation Location: [facility] Dictated By: Favian Pacheco II, MD 05/19/25 1533 Signed By: 05/19/25 1539 [facility] Work Phone: Cholesterol in LDL Calc [Mass/Vol]Ordered By: Ayanna Vicente on 83-16-1734Gggrcffkadi in LDL [Mass/Vol]59.0 mg/dLPeoples HospitalComment on above:<100 mg/dl ZVAJGZP743-107 mg/dl NEAR OR ABOVE ZJMBZBH537-659 mg/dl BORDERLINE QEHT361-665 mg/dl HIGH>190 mg/dl VERY HIGH Cholesterol in VLDL Calc [Mass/Vol]Ordered By: Ayanna Vicente on 05-16-2025 Cholesterol in VLDL [Mass/Vol]31.6 mg/dLPeoples Hospital Globulin Calc (S) [Mass/Vol]Ordered By: Ayanna Vicente on 75-80-9678Cgsjlmyk (S) [Mass/Vol]3.4 g/dLPeoples HospitalGlomerular filtration rate (GFR) estimation in non- AmericanOrdered By: Ayanna Vicente on 05-16-2025 GFR/1.73 sq M.predicted among non-blacks MDRD (S/P/Bld) [Vol rate/Area]44 mL/min/{1.73_m2}Low>=60 mL/min/1.73m 2FThe Jewish HospitalGlucose mean value [Mass/volume] in Blood Estimated from glycated hemoglobinOrdered By: Ayanna Vicente on 78-80-5479Qibmyet glucose Estimated from glycated hemoglobin (Bld) [Mass/Vol]186 mg/dLPeoples HospitalHemoglobin A1c percentageOrdered By: Ayanna Vicente on 18-49-2469SiS5s (Bld) [Mass fraction]8.1 % High4.5-6.2FThe Jewish HospitalComment on above:ADA RECOMMENDED LIMIT 4.0 - 6.0ADA THERAPEUTIC TARGET < 7.0ACTION SUGGESTED> 7.0Laboratory - Chemistry and Chemistry - challengeOrdered By: Ayanna Vicente on 70-79-7428Fbhebxn [Mass/Vol]3.0 g/dLLow3.4-5.0Pe[facility] HospitalALP [Catalytic activity/Vol]92 U/T53-811AhdkxqekkPeoples HospitalALT [Catalytic activity/Vol]36 U/R67-22PdobzkmkkPeoples HospitalAST [Catalytic activity/Vol]24 U/N14-05BmobhshiiPeoples HospitalBilirubin [Mass/Vol]0.4 mg/dL0.2-1.0Pe[facility] HospitalCalcium [Mass/Vol]8.9 mg/dL 8.5-10.1FThe Jewish HospitalChloride [Moles/Vol]108 mmol/LHigh 98-107Peoples HospitalCholesterol [Mass/Vol]143 mg/dL<=200 [facility] HospitalCholesterol in HDL [Mass/Vol]53 mg/dL40-60 [facility] HospitalComment on above:> or =60 mg/dl - LOW CARDIOVASCULAR RISK<40 mg/dl - HIGH CARDIOVASCULAR RISKCO2 [Moles/Vol]26.7 mmol/L21.0-32.0Pe[facility] HospitalCreatinine [Mass/Vol]1.17 mg/dL High0.55-1.02Peoples HospitalFree T4 [Mass/Vol]1.14 ng/dL 0.76-1.46Peoples HospitalGFR/1.73 sq M.predicted MDRD (S/P/Bld) [Vol rate/Area]54 mL/min/{1.73_m2}Low>=60 mL/min/1.73m 2FThe Jewish HospitalGlucose [Mass/Vol]114 mg/kLXlau27-159RhxkzxpptPeoples HospitalPotassium [Moles/Vol]4.5 mmol/L3.5-5.1FThe Jewish Hospital Protein [Mass/Vol]6.4 g/dL6.4-8.2FSalem Regional Medical Centerodium [Moles/Vol]145 mmol/F073-606EhwiwanwkPeoples HospitalTriglyceride [Mass/Vol]158 mg/dLHigh<=150Peoples HospitalTSH Qn2.164 m[IU]/L 0.358-3.740Peoples HospitalUrea nitrogen [Mass/Vol]21.0 mg/dL High7.0-18.0Peoples HospitalUrea nitrogen/Creatinine [Mass ratio]17.9 mg/mgPeoples HospitalNo Panel InformationOrdered By: Ayanna Vicente on 89-80-0526Djfi Triiodothyronine2.90 pg/mL2.18-3.98Summa Healtherum or plasma albumin/globulin mass ratioOrdered By: Ayanna Vicente on 28-05-6063Nnfimes/Globulin [Mass ratio]0.9 {ratio}Summa Healtherum or plasma anion gap determinationOrdered By: Ayanna Vicente on 39-15-0432Fhvfx gap [Moles/Vol]14.8 mmol/LFSalem Regional Medical Centererum or plasma total cholesterol/high density lipoprotein (HDL) cholesterol mass ratOrdered By: Ayanna Vicente on 05-16-2025 Cholesterol.total/Cholesterol in HDL [Mass ratio]2.7 {ratio}[facility] HospitalComment on above:3.3 - 4.4 LOW RISK4.4 - 7.1 AVERAGE RISK7.1 - 11.0 MODERATE RISK>11.0 HIGH RISKCOVID CepheidOrdered By: Mckenzie Christopher on 23-68-7490KTWK-CoV-2 (COVID-19) RNA FARRAH+probe Ql (Unsp spec)NegativePeoples HospitalNo Panel InformationOrdered By: Mckenzie Christopher on 55-91-8003BKA Influenza A (PCR)NegativePeoples HospitalPOC Influenza B (PCR)NegativePeoples HospitalX-ray reportOrdered By: Galo Rodriguez on 08-11-4519Sokzv report[address] [address] XRay Report Signed Patient: Kathy Washburn MR#: [id number] : 1940 Acct:[id number] Age/Sex: 84 / F ADM Date: 5 Loc: XDUCLY Room: Type: REG CLI Attending Dr: Mckenzie Christopher DERRICK WORKER Copies to: Mckenzie Christopher APRN~ Ordering Provider: [...] Jr., D.OArmando 04/26/2025 2:40 PM Dictation Location: [place] [address] Transcribed By: [facility] 04/26/25 1440 Dictated By: Galo Rodriguez Jr, DO 04/26/25 1436 Signed By: 04/26/25 1440 [facility] HospitalXR chest 2V*on 58-96-1409FW chest 2V*[facility] [address] [address] XRay Report Signed Patient: Kathy Washburn MR#: [id number] : 1940 Acct:[id number] Age/Sex: 84 / F ADM Date: 04/26/25 Loc: XDUC Room: Type: REG CLI Attending Dr: Mckenzie Christopher DERRICK WORKER Copies to: Mckenzie Christopher APRN Ordering Provider: [...] Jr., D.OArmando 04/26/2025 2:40 PM Dictation Location: [facility]--27 Transcribed By: [facility] 04/26/25 1440 Dictated By: Galo Rodriguez Jr, DO 04/26/25 1436 Signed By: 04/26/25 1440[facility] Physician GroupCryotherapy, skin lesionOrdered By: Corazon Dietrich on 08-48-6791SOYZ HealthcareBasophils/100 WBC Manual cnt (Bld)Ordered By: Som Azul on 86-32-1553Vbnezvkop/100 WBC (Bld)0.0 %Low 0.2-2.0[facility] HospitalEosinophils/100 WBC Manual cnt (Bld) Ordered By: Som Azul on 05-59-6098Djykpbbsdga/100 WBC (Bld)2.0 % 0.9-7.0[facility] HospitalErythrocyte distribution width Auto (RBC) [Ratio]Ordered By: Som Azul on 56-16-1719Wthbezzdqsb distribution width (RBC) [Ratio]13.3 %11.0-15.0[facility] Glomerular filtration rate (GFR) estimation in non- AmericanOrdered By: Som Azul on 67-76-2238IPW/1.73 sq M.predicted among non-blacks MDRD (S/P/Bld) [Vol rate/Area]41 mL/min/{1.73_m2}Low>=60 mL/min/1.73m 2FThe Jewish HospitalHematocrit Auto (Bld) [Volume fraction]Ordered By: Som Azul on 70-62-1864Yybtlaobed (Bld) [Volume fraction]39.4 % 36.0-48.0[facility] HospitalHemoglobin [Mass/volume] in Blood Ordered By: Som Azul on 49-94-8322Judqdruogt (Bld) [Mass/Vol]12.8 g/dL 12.0-16.0[facility] HospitalLaboratory - Chemistry and Chemistry - challengeOrdered By: Josecory Augusteraitis on 13-44-8025Nhkzrvz [Mass/Vol]8.9 mg/dL8.5-10.1FThe Jewish HospitalChloride [Moles/Vol]107 mmol/L 98-107Pe[facility] HospitalCO2 [Moles/Vol]30.0 mmol/L21.0-32.0 [facility] HospitalCreatinine [Mass/Vol]1.24 mg/dLHigh0.55-1.02 [facility] HospitalGFR/1.73 sq M.predicted MDRD (S/P/Bld) [Vol rate/Area]50 mL/min/{1.73_m2}Low>=60 mL/min/1.73m 2FThe Jewish HospitalGlucose [Mass/Vol]144 mg/mMCqlm17-129XtiwwiozsPeoples Hospital Potassium [Moles/Vol]4.8 mmol/L3.5-5.1FSalem Regional Medical Centerodium [Moles/Vol]144 mmol/F544-276BfmjkxrkmPeoples HospitalUrea nitrogen [Mass/Vol]28.0 mg/dLHigh7.0-18.0[facility] HospitalUrea nitrogen/Creatinine [Mass ratio]22.6 mg/mgPeoples Hospital Laboratory - Hematology and Cell countsOrdered By: Som Augusteraitis on 44-77-3491Kahzdqzojts/100 WBC (Bld)70.0 %High20.5-60.0[facility] HospitalMonocytes/100 WBC (Bld)6.0 %1.7-12.0[facility] Leukocytes [#/volume] corrected for nucleated erythrocytes in Blood by Automated counOrdered By: Som Augusteraitis on 64-72-1802MOF corrected for nucl RBC Auto (Bld) [#/Vol]18.5 10 3/uLHigh4.0-11.0[facility] HospitalMCH Auto (RBC) [Entitic mass]Ordered By: Som Fuchsitis on 44-55-3341VWF (RBC) [Entitic mass]30.5 pg26.7-34.0[facility] HospitalMCHC Auto (RBC) [Mass/Vol]Ordered By: Andrius Giedraitis on 72-53-1150AODK (RBC) [Mass/Vol]32.5 g/dL29.9-35.2FThe Jewish HospitalMCV Auto (RBC) [Entitic vol] Ordered By: Andrius Giedraitis on 46-17-8051PLM (RBC) [Entitic vol]93.8 fL 81.0-99.0[facility] HospitalNo Panel InformationOrdered By: Andrius Giedraitis on 28-03-2254Xzawyrui Basophils (Manual)0.00 10 3/uL0.00-0.10 [facility] HospitalEosinophils # (Manual)0.37 10 3/uL0.00-0.70 [facility] HospitalLymphocytes # (Manual)12.95 10 3/uLHigh 1.20-3.80[facility] HospitalMonocytes # (Manual)1.11 10 3/uLHigh 0.30-0.80Summa Healthegmented Neutrophils # (Manual)4.07 10 3/uL1.4-6.5FThe Jewish HospitalPlatelet mean volume Auto (Bld) [Entitic vol]Ordered By: Andrius Giedraitis on 30-66-7315Cqobuemo mean volume (Bld) [Entitic vol]11.6 fL9.5-13.5FThe Jewish HospitalPlatelets Auto (Bld) [#/Vol]Ordered By: Andrius Giedraitis on 44-42-2911Cobbwvntp (Bld) [#/Vol]219 10 3/tM641-263GrgsgruvbPeoples HospitalRBC Auto (Bld) [#/Vol] Ordered By: Andrius Giedraitis on 17-69-6912ALC (Bld) [#/Vol]4.20 10 6/uL 4.20-5.40Summa Healthegmented neutrophils/100 WBC Manual cnt (Bld)Ordered By: Andrius Giedraitis on 83-88-2198Wkakticvd neutrophils/100 WBC (Bld)22.0 %Low43.0-75.0Summa Healtherum or plasma anion gap determinationOrdered By: Andrius Carlyedraitis on 78-88-1155Xvhgw gap [Moles/Vol]11.8 mmol/LFThe Jewish HospitalBasophils/100 WBC Manual cnt (Bld)Ordered By: Andrius Giedraitis on 73-74-2632Riwlhzwij/100 WBC (Bld)0.0 %Low0.2-2.0[facility] HospitalEosinophils/100 WBC Manual cnt (Bld) Ordered By: Andrius Giedraitis on 52-37-8877Tbwpcbqszap/100 WBC (Bld)0.0 %Low 0.9-7.0[facility] HospitalErythrocyte distribution width Auto (RBC) [Ratio]Ordered By: Andrius Carlyedraitis on 24-46-2821Tcalqxzngxk distribution width (RBC) [Ratio]13.7 %11.0-15.0[facility] Estimated glomerular filtration rate (GFR) non- AmericanOrdered By: Andrius Giedraitis on 26-37-7170JNY/1.73 sq M.predicted among non-blacks MDRD (S/P/Bld) [Vol rate/Area]35 mL/min/{1.73_m2}Low>=60 mL/min/1.73m 2FThe Jewish HospitalHematocrit Auto (Bld) [Volume fraction]Ordered By: Andrius Augusterarory on 60-04-6840Mjkdgaknsk (Bld) [Volume fraction]36.4 % 36.0-48.0[facility] HospitalHemoglobin [Mass/volume] in Blood Ordered By: Andrius Giedraitis on 98-36-3494Qfoahoeffm (Bld) [Mass/Vol]11.6 g/dL Low12.0-16.0[facility] HospitalLaboratory - Chemistry and Chemistry - challengeOrdered By: Andrius Giedraitis on 19-34-4985Wufyrbl [Mass/Vol]9.0 mg/dL8.5-10.1FThe Jewish HospitalChloride [Moles/Vol] 107 mmol/Y61-184ZamhocwrvPeoples HospitalCO2 [Moles/Vol]30.8 mmol/L 21.0-32.0[facility] HospitalCreatinine [Mass/Vol]1.43 mg/dLHigh 0.55-1.02[facility] HospitalGFR/1.73 sq M.predicted MDRD (S/P/Bld) [Vol rate/Area]43 mL/min/{1.73_m2}Low>=60 mL/min/1.73m 2FThe Jewish HospitalGlucose [Mass/Vol]120 mg/mPBpez57-966ZtfyncgknPeoples HospitalPotassium [Moles/Vol]5.0 mmol/L3.5-5.1FThe Jewish Hospital Sodium [Moles/Vol]143 mmol/R614-373XtpimxxpsPeoples HospitalUrea nitrogen [Mass/Vol]36.0 mg/dLHigh7.0-18.0[facility] HospitalUrea nitrogen/Creatinine [Mass ratio]25.2 mg/mgPeoples Hospital Laboratory - Hematology and Cell countsOrdered By: Andrius Giedraitis on 58-58-8225Ncjwlrxxqir/100 WBC (Bld)51.0 %20.5-60.0[facility] HospitalMonocytes/100 WBC (Bld)5.0 %1.7-12.0[facility] Leukocytes [#/volume] corrected for nucleated erythrocytes in Blood by Automated counOrdered By: Andrius Giedraitis on 27-39-4526MIU corrected for nucl RBC Auto (Bld) [#/Vol]19.3 10 3/uLHigh4.0-11.0[facility] Auto (RBC) [Entitic mass]Ordered By: Andrius Giedraitis on 01-06-0154NHU (RBC) [Entitic mass]30.2 pg26.7-34.0[facility] ShawHC Auto (RBC) [Mass/Vol]Ordered By: Andrius Giedraitis on 32-85-2107SBQU (RBC) [Mass/Vol]31.9 g/dL29.9-35.2FThe Jewish HospitalMCV Auto (RBC) [Entitic vol] Ordered By: Andrius Giedraitis on 35-42-7169YAM (RBC) [Entitic vol]94.8 fL 81.0-99.0[facility] HospitalNo Panel InformationOrdered By: Andrius Giedraitis on 39-97-0243Wiomwjjk Basophils (Manual)0.00 10 3/uL0.00-0.10 [facility] HospitalEosinophils # (Manual)0.00 10 3/uL0.00-0.70 [facility] HospitalLymphocytes # (Manual)9.84 10 3/uLHigh1.20-3.80 [facility] HospitalMonocytes # (Manual)0.96 10 3/uLHigh0.30-0.80 [facility] Neutrophils # (Manual)8.49 10 3/uL High1.4-6.5FThe Jewish HospitalPlatelet mean volume Auto (Bld) [Entitic vol]Ordered By: Andrius Giedraitis on 76-79-9192Baxfpqoa mean volume (Bld) [Entitic vol]11.8 fL9.5-13.5FThe Jewish HospitalPlatelets Auto (Bld) [#/Vol]Ordered By: Andrius Giedraitis on 22-91-4911Vsxkmrxed (Bld) [#/Vol]213 10 3/aY847-430XvjabbhizPeoples HospitalRBC Auto (Bld) [#/Vol] Ordered By: Andrius Giedraitis on 42-95-2569OVY (Bld) [#/Vol]3.84 10 6/uLLow 4.20-5.40[facility] Healthegmented neutrophils/100 WBC Manual cnt (Bld)Ordered By: Andrius Giedraitis on 76-53-8539Abttcomvu neutrophils/100 WBC (Bld)44.0 %43.0-75.0[facility] Healtherum or plasma anion gap determinationOrdered By: Andrius Giedraitis on 65-84-5099Iltrr gap [Moles/Vol]10.2 mmol/[facility] Hospitalmudge cell detection Ordered By: Som Giadelararory on 61-01-7967Mzusrg cells LM Ql (Bld)SEEN [facility] HospitalAmbulatory Visit Summaryon 42-15-8826Quiweevuln Visit SummaryAmbulatory Visit Summary KATHY WASHBURN :1940 [...] APRN, Sujey Lopez Where: [facility] [address] [place] [address]- You Need to Schedule the Following Appointments Follow Up with Follow up in Spring When: Medications What How Much When Instructions New ciprofloxacin (Cipro 500 mg Tab) 1 Tablets By Mouth Every 12 hours Duration: 7 Days Pickup at [facility] Unchanged estradiol topical (Estrace 0.1 mg/ g Cream) See instructions apply a pea-sized amount vaginally and around the urethra 3x per week for UTI prevention Pickup at [facility] Unchanged trospium (trospium 20 mg [...] Information [facility] (more content not included)...[facility] U[facility] Office/Clinic Noteon 94-29-8247Fshyppd Office/Clinic NoteUrology Office/Clinic Note Chief Complaint 6 [...] (N39.41: Urge incontinence) S/p Botox 100u 08/30/21. [place] sxs only improved for a few weeks [...] E&M of Est. Patient Moderate 30-39 Min 82827 2. 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 Patient Moderate 30-39 Min 91133 Orders: ciprofloxacin, 500 mg = 1 tab(s), Oral, q12hr, X 7 day(s), # 14 tab(s), Refills(s) 0, Pharmacy: [facility], 178, cm, 02/08/25 9:03:00 EDT, Height/Length Dosing, 105.1, kg, 02/08/25 9:03:00 EDT, Weight Dosing estradiol topical, See Instructions, 42.5 gm, Refill(s) 6, apply a pea-sized amount vaginally and around the urethra 3x per week for UTI prevention, [facility], 178, cm, 02/08/25 9:03:00 EDT, [...] BID Maxzide-25 oral tablet (more content not included)...[facility]ullComment on above:Result Comment: Electronically Signed By: SUSAN RANDOLPH PA-C\Date and Time Signed: 02/08/2510:51 EDTFL barium enemaon 47-61-8780KE [facility]aOUR [facility] Main [address] [address] Fluoroscopy Report Signed Patient: Kathy Washburn MR#: [id number] : 1940 Acct:[id number] Age/Sex: 84 / F ADM Date: 01/19/25 Loc: XD Room: Type: [facility] Attending Dr: Moe Betts DO Copies to: [...] Arndt M.D. 01/19/2025 2:20 PM Dictation Location: [place] [address] Transcribed By: [facility] 01/19/25 1420 Dictated By: Stanford Arndt DO 01/19/25 1417 Signed By: 01/19/25 1420[facility] GroupFluoroscopy reportOrdered By: Stanford Arndt on 81-38-0924BL Unspecified body region ViewsOUR LADY OF MERCY HOSPITAL Main [address] [address] Fluoroscopy Report Signed Patient: Kathy Washburn MR#: [id number] : 1940 Acct:[id number] Age/Sex: 84 / F ADM Date: 5 Loc: XD Room: Type: [facility] Attending Dr: Moe Betts DO Copies to: [...] Arndt M.D. 01/19/2025 2:20 PM Dictation Location: [place] [address] Transcribed By: [facility] 01/19/25 1420 Dictated By: Stanford Arndt DO 01/19/25 1417 Signed By: 01/19/25 1420 [facility] HospitalErythrocyte distribution width Auto (RBC) [Ratio]Ordered By: Lesli Arevalo on 34-81-5961Wfqqsdgxgsk distribution width (RBC) [Ratio]14.3 %11.0-15.0[facility] HospitalEstimated glomerular filtration rate (GFR) non- AmericanOrdered By: Lesli Arevalo on 01-17-2025 GFR/1.73 sq M.predicted among non-blacks MDRD (S/P/Bld) [Vol rate/Area]43 mL/min/{1.73_m2}Low>=60 mL/min/1.73m 2FThe [facility] Hospital Hematocrit Auto (Bld) [Volume fraction]Ordered By: Lesli Arevalo on 01-17-2025 Hematocrit (Bld) [Volume fraction]39.4 %36.0-48.0[facility] HospitalHemoglobin [Mass/volume] in BloodOrdered By: Lesli Arevalo on 01-17-2025 Hemoglobin (Bld) [Mass/Vol]12.7 g/dL12.0-16.0[facility] Laboratory - Chemistry and Chemistry - challengeOrdered By: Lesli Arevalo on 45-63-5267Uebiakb [Mass/Vol]3.5 g/dL3.4-5.0[facility] Calcium [Mass/Vol]9.0 mg/dL8.5-10.1FThe Jewish HospitalChloride [Moles/Vol]109 mmol/GGxpj98-547WrjujfaogPeoples HospitalCO2 [Moles/Vol] 29.7 mmol/L21.0-32.0[facility] HospitalCreatinine [Mass/Vol]1.20 mg/dLHigh0.55-1.02Peoples HospitalGFR/1.73 sq M.predicted MDRD (S/P/Bld) [Vol rate/Area]52 mL/min/{1.73_m2}Low>=60 mL/min/1.73m 2FThe Jewish HospitalGlucose [Mass/Vol]99 mg/hT36-453ExehlgvpsPeoples HospitalMagnesium [Mass/Vol]1.5 mg/dLLow1.8-2.4FThe Jewish HospitalPotassium [Moles/Vol]4.9 mmol/L3.5-5.1FThe [facility] Hospital Sodium [Moles/Vol]146 mmol/JMkdr681-687UslyqiyxtPeoples HospitalUrate [Mass/Vol]6.2 mg/dLHigh2.6-6.0[facility] HospitalUrea nitrogen [Mass/Vol]35.0 mg/dLHigh7.0-18.0[facility] HospitalUrea nitrogen/Creatinine [Mass ratio]29.2 mg/mgPeoples Hospital Bilirubin Ql (U)NegativeNEGATIVEPeoples HospitalGlucose (U) [Mass/Vol]NegativeNEGATIVEPeoples HospitalKetones Ql (U) NegativeNEGUniversity Hospitals Portage Medical CenterpH (U)6.0 [pH]5.0-9.0Summa Healthpecific gravity (U) [Rel density]1.0251.005-1.025 [facility] HospitalUrobilinogen Qn (U)0.2 {Jose'U}/dL0.2-1.0 [facility] HospitalLaboratory - Specimen informationOrdered By: Lesli Arevalo on 30-19-4485Wlfxxdmqgz (U)CLEARCLEARFThe Jewish HospitalColor (U)DK. YELLOWYELLOWPeoples HospitalLaboratory - UrinalysisOrdered By: Lesli Arevalo on 86-66-9737Icfqfuyvb esterase Test strip Ql (U)NegativeNEGUniversity Hospitals Portage Medical CenterMucus Ql (Urine sed)TRACE AbnormalNONE SEENPeoples HospitalNitrite Ql (U)NegativeNEGATIVE [facility] HospitalProtein (U) [Mass/Vol]41.4 mg/dLHigh<=11.9 [facility] HospitalProtein Ql (U)TRACE mg/dLNEG/TRACEPeoples HospitalLeukocytes [#/volume] corrected for nucleated erythrocytes in Blood by Automated counOrdered By: Lesli Arevalo on 26-92-9177WWU corrected for nucl RBC Auto (Bld) [#/Vol]18.8 10 3/uLHigh4.0-11.0[facility] Auto (RBC) [Entitic mass]Ordered By: Lesli Arevalo on 44-47-8778WCK (RBC) [Entitic mass]30.2 pg26.7-34.0[facility] ShawHC Auto (RBC) [Mass/Vol]Ordered By: Lesli Arevalo on 44-74-4064TBWO (RBC) [Mass/Vol]32.2 g/dL29.9-35.2FGood Samaritan HospitalV Auto (RBC) [Entitic vol]Ordered By: Lesli Arevalo on 10-91-2892WXD (RBC) [Entitic vol]93.6 fL 81.0-99.0[facility] HospitalNo Panel InformationOrdered By: Lesli Arevalo on 582801-Kauckep Vitamin D Total61.8 ng/mLPeoples HospitalComment on above:<20 ng/mL Vit D -<30 ng/mL Vit D ojlcjatcguyb45-756 ng/mL Vit D sufficient>100 ng/mL Potential Toxicity Parathyroid Hormone (Intact)42 pg/tK51-92GvrzhnfckPeoples Hospital Comment on above:Performed at: - [facility] [id number] Director: Narinder Elam PhD, Phone: [phone] Level 4.1 mg/dL2.6-4.7FThe Jewish HospitalUrine BacteriaSMALL #/HPF AbnormalNONE SEENPeoples HospitalUrine Occult BloodNegative NEGATIVEPeoples HospitalUrine Other CastsNONE SEEN #/LPFNONE SEENPeoples HospitalUrine Other CrystalsNone Seen #/HPFNone [facility] HospitalUrine Random Xsivuhpwyl621.94 mg/dL 20.00-300.00Peoples HospitalUrine RBC0-2 #/HPF0-2FThe Jewish HospitalUrine Squamous Epithelial CellsRARE #/LPFNONE/RARE Peoples HospitalUrine WBC0-2 #/HPFAbnormalNONE SEENPeoples HospitalPlatelet mean volume Auto (Bld) [Entitic vol]Ordered By: Lesli Arevalo on 19-50-3222Izxnuwbj mean volume (Bld) [Entitic vol]11.4 fL9.5-13.5 Peoples HospitalPlatelets Auto (Bld) [#/Vol]Ordered By: Lesli Arevalo on 57-46-1338Hwkjlsmio (Bld) [#/Vol]217 10 3/gP569-096IyzqndhknPeoples HospitalRBC Auto (Bld) [#/Vol]Ordered By: Lesli Arevalo on 34-52-7096OHT (Bld) [#/Vol]4.21 10 6/uL4.20-5.40Summa Healtherum or plasma anion gap determinationOrdered By: Lesli Arevalo on 23-49-3235Tlppl gap [Moles/Vol]12.2 mmol/LFThe Jewish HospitalUrine protein/creatinine ratioOrdered By: Lesli Arevalo on 09-63-2628Tfjaxwb/Creatinine (U) [Ratio]0.35 Pe[facility] HospitalCNOVon 03-07-5893OQIWQoulff Visit (INEZ) KATHY WASHBURN ([id number]) 1940 F Date Time Provider Department 12/17/24 10:20 AM ZOHAIB GERMAN During your visit today, we recorded the following information about you: Temperature Blood pressure Weight Height 65 degrees 112/71 103.6 kg 1.727 m Zohaib German MD 12/17/2024 10:49 AM Signed [facility] Date of Service: 12/17/2024 Patient: Kathy Washburn Medical Record: [id number] Primary Care Physician: Ayanna Vicente DO Last [...] 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 There have not been any new health [...] (IBD) Leukocytosis Mixed hyp (more content not included)...NormalFlower HospitalPNon 06-26-0272OKLIWrzpvbtls (NCCAP) KATHY WASHBURN ([id number]) 1940 F Date Time Provider Department 11/17/24 [...] to be following with Dr Silva @ [facility] as this is closer to home for patient. Roxie requested to talk to medical records regarding having records sent to Dr Silva transferred call To Heather Todd. [facility] HospitalSusan 11/17/2024 2:36 PM Signed Records faxed to Dr. Silva [phone]. I called Roxie to let her know [...] 07/24/2011 Encounter Status:Closed by LORI RENNER on 11/17/24NoGlenbeigh HospitalAcanthocytes [Presence] in Blood by Light microscopyon 11-01-2024 Acanthocytes LM Ql (Bld)Acanthocytes [Presence] in Blood by Light microscopy Peoples HospitalAcanthocytes LM Ql (Bld)1+Peoples HospitalBasophils/100 WBC Manual cnt (Bld)on 55-59-3360Vsaccfaeu/100 WBC (Bld)Basophils/100 leukocytes in Blood by Manual count0.2-2.0Pe[facility] HospitalBasophils/100 WBC (Bld)2.0 %0.2-2.0[facility] HospitalCholesterol in LDL Calc [Mass/Vol]on 53-94-1373Hczppoiwght in LDL [Mass/Vol]Cholesterol in LDL [Mass/volume] in Serum or Plasma by calculation Peoples HospitalComment on above:<100 mg/dl UYLJERL525-371 mg/dl NEAR OR ABOVE XHCUIRK106-939 mg/dl BORDERLINE DXPW859-205 mg/dl HIGH>190 mg/dl VERY HIGHCholesterol in LDL [Mass/Vol]29.2 mg/dLPeoples HospitalComment on above:<100 mg/dl UUTXLPE955-013 mg/dl NEAR OR ABOVE WGSHIRQ200-954 mg/dl BORDERLINE RCAC964-873 mg/dl HIGH>190 mg/dl VERY HIGH Cholesterol in VLDL Calc [Mass/Vol]on 14-01-6251Xpqyqrarydi in VLDL [Mass/Vol] Cholesterol in VLDL [Mass/volume] in Serum or Plasma by calculationPeoples HospitalCholesterol in VLDL [Mass/Vol]22.8 mg/dLPeoples HospitalEosinophils/100 WBC Manual cnt (Bld)on 11-01-2024 Eosinophils/100 WBC (Bld)Eosinophils/100 leukocytes in Blood by Manual count 0.9-7.0Pe[facility] HospitalEosinophils/100 WBC (Bld)1.0 %0.9-7.0 [facility] HospitalErythrocyte distribution width Auto (RBC) [Ratio]on 15-96-6933Eemqfrzvufw distribution width (RBC) [Ratio]14.6 %11.0-15.0 [facility] HospitalEstimated glomerular filtration rate (GFR) non- Americanon 98-05-2312KXJ/1.73 sq M.predicted among non-blacks MDRD (S/P/Bld) [Vol rate/Area]Estimated glomerular filtration rate (GFR) non- AmericanLow>=60 mL/min/1.73m [address] [place], [place] [address]GFR/1.73 sq M.predicted among non-blacks MDRD (S/P/Bld) [Vol rate/Area]36 mL/min/{1.73_m2} Low>=60 mL/min/1.[address]m [address] [place], [place] [address]Globulin Calc (S) [Mass/Vol]on 33-39-6666Coizbwfw (S) [Mass/Vol]Serum globulin measurement by calculation (mass/volume)Peoples HospitalGlobulin (S) [Mass/Vol]3.4 g/dLPeoples HospitalGlucose mean value [Mass/volume] in Blood Estimated from glycated hemoglobinon 76-74-5133Xpgzxae glucose Estimated from glycated hemoglobin (Bld) [Mass/Vol]Glucose mean value [Mass/volume] in Blood Estimated from glycated hemoglobinPeoples HospitalAverage glucose Estimated from glycated hemoglobin (Bld) [Mass/Vol]154 mg/dLPeoples HospitalHematocrit Auto (Bld) [Volume fraction]on 09-87-3628Izgddwjlgr (Bld) [Volume fraction]41.5 %36.0-48.0 [facility] HospitalHemoglobin A1c percentageon 72-86-3162UiB0z (Bld) [Mass fraction]Hemoglobin A1c percentageHigh4.5-6.2FThe Jewish HospitalComment on above:ADA RECOMMENDED LIMIT 4.0 - 6.0ADA THERAPEUTIC TARGET < 7.0ACTION SUGGESTED> 7.0HbA1c (Bld) [Mass fraction]7.0 %High4.5-6.2 Pe[facility] HospitalComment on above:ADA RECOMMENDED LIMIT 4.0 - 6.0ADA THERAPEUTIC TARGET < 7.0ACTION SUGGESTED> 7.0Hemoglobin [Mass/volume] in Bloodon 98-54-2431Xwagbxlttq (Bld) [Mass/Vol]13.2 g/dL12.0-16.0[facility] HospitalLaboratory - Chemistry and Chemistry - challengeon 74-30-7812Gzfujwx [Mass/Vol]3.3 g/dLLow3.4-5.0[facility] ALP [Catalytic activity/Vol]89 U/F67-833YapiafnlwPeoples HospitalALT [Catalytic activity/Vol]43 U/I74-46InwqlyzsoPeoples HospitalAST [Catalytic activity/Vol]26 U/F19-65XmouhuyqpPeoples HospitalBilirubin [Mass/Vol]0.3 mg/dL0.2-1.0[facility] HospitalCalcium [Mass/Vol]9.0 mg/dL8.5-10.1FThe Jewish HospitalChloride [Moles/Vol]109 mmol/L Tdem11-718ZownerpjwPeoples HospitalCholesterol [Mass/Vol]111 mg/dL<=200 [facility] HospitalCholesterol in HDL [Mass/Vol]59 mg/dL40-60 [facility] HospitalComment on above:> or =60 mg/dl - LOW CARDIOVASCULAR RISK<40 mg/dl - HIGH CARDIOVASCULAR RISKCO2 [Moles/Vol]29.4 mmol/L21.0-32.0[facility] HospitalCreatinine [Mass/Vol]1.39 mg/dL High0.55-1.02Peoples HospitalFree T4 [Mass/Vol]1.14 ng/dL 0.76-1.46Pe[facility] HospitalGFR/1.73 sq M.predicted MDRD (S/P/Bld) [Vol rate/Area]44 mL/min/{1.73_m2}Low>=60 mL/min/1.73m 2FThe Jewish HospitalGlucose [Mass/Vol]88 mg/vT19-046UcmuakqouPeoples Hospital Potassium [Moles/Vol]5.4 mmol/LHigh3.5-5.1FThe Jewish Hospital Protein [Mass/Vol]6.7 g/dL6.4-8.2FSalem Regional Medical Centerodium [Moles/Vol]143 mmol/J558-034JpuydbzziPeoples HospitalTriglyceride [Mass/Vol]114 mg/dL<=150Peoples HospitalTSH Qn0.958 m[IU]/L 0.358-3.740Peoples HospitalUrea nitrogen [Mass/Vol]44.0 mg/dL High7.0-18.0[facility] HospitalUrea nitrogen/Creatinine [Mass ratio]31.7 mg/mgPeoples HospitalLaboratory - Hematology and Cell countson 88-35-1322Dsdz form neutrophils/100 WBC (Bld)1.0 %0-5FThe Jewish HospitalLymphocytes/100 WBC (Bld)66.0 %High20.5-60.0[facility] HospitalMonocytes/100 WBC (Bld)7.0 %1.7-12.0[facility] HospitalLeukocytes [#/volume] corrected for nucleated erythrocytes in Blood by Automated counon 77-42-6183HRJ corrected for nucl RBC Auto (Bld) [#/Vol]21.6 10 3/uLHigh4.0-11.0[facility] ShawH Auto (RBC) [Entitic mass]on 48-17-2977FTA (RBC) [Entitic mass]30.2 pg26.7-34.0Peoples HospitalMCHC Auto (RBC) [Mass/Vol]on 79-22-0374WMFQ (RBC) [Mass/Vol]31.8 g/dL29.9-35.2FThe Jewish HospitalMCV Auto (RBC) [Entitic vol]on 27-65-1264HPB (RBC) [Entitic vol]95.0 fL81.0-99.0[facility] HospitalMicroalbumin [Mass/volume] in Urineon 32-41-5733Sgcccja DL <= 20 mg/L (U) [Mass/Vol]Microalbumin [Mass/volume] in Urine<=30.0Peoples HospitalAlbumin DL <= 20 mg/L (U) [Mass/Vol]1.3 mg/dL<=30.0 [facility] HospitalNo Panel Informationon 27-42-6582Dktlgyjo Basophils (Manual)0.43 10 3/uLHigh0.00-0.10Peoples HospitalBand Neutrophils # (Manual)0.2 10 3/uL0.0-0.3FThe Jewish Hospital Eosinophils # (Manual)0.21 10 3/uL0.00-0.70Peoples HospitalFree Triiodothyronine1.62 pg/mLLow2.18-3.98[facility] Lymphocytes # (Manual)14.25 10 3/uLHigh1.20-3.80Pe[facility] HospitalMonocytes # (Manual)1.51 10 3/uLHigh0.30-0.80Sum[facility] Healthegmented Neutrophils # (Manual)4.96 10 3/uL1.4-6.5FThe Jewish HospitalUrine Random Yxdkxounqb15.71 mg/dL20.00-300.00Pe[facility] HospitalOvalocyte detectionon 72-28-7010Mgfkfvlgzq LM Ql (Bld)Ovalocyte detectionPeoples HospitalOvalocytes LM Ql (Bld)1+[facility]oples HospitalPlatelet mean volume Auto (Bld) [Entitic vol]on 59-66-4458Djzkccdy mean volume (Bld) [Entitic vol]11.0 fL9.5-13.5FThe Jewish HospitalPlatelets Auto (Bld) [#/Vol]on 81-37-0032Zvniqjclq (Bld) [#/Vol]239 10 3/oG256-233EvioxmktsPeoples HospitalPoikilocytosis [Presence] in Blood by Light microscopyon 75-42-2674Vxcddctjhxucxm LM Ql (Bld) Poikilocytosis [Presence] in Blood by Light microscopyPeoples HospitalPoikilocytosis LM Ql (Bld)1+Peoples HospitalRBC Auto (Bld) [#/Vol]on 27-54-9571LYC (Bld) [#/Vol]4.37 10 6/uL4.20-5.40Summa Healthegmented neutrophils/100 WBC Manual cnt (Bld)on 42-22-1923Bderirmfj neutrophils/100 WBC (Bld)Manual blood segmented neutrophils/100 xccltsxqcoErm99.0-75.0[facility] Healthegmented neutrophils/100 WBC (Bld)23.0 %Low43.0-75.0[facility] Serum or plasma albumin/globulin mass ratioon 87-93-9594Lnalcci/Globulin [Mass ratio]Serum or plasma albumin/globulin mass ratioPeoples HospitalAlbumin/Globulin [Mass ratio]1.0 {ratio}[facility] Serum or plasma anion gap determinationon 33-26-0991Cwmtk gap [Moles/Vol]Serum or plasma anion gap determinationPeoples HospitalAnion gap [Moles/Vol]10.0 mmol/LFSalem Regional Medical Centererum or plasma total cholesterol/high density lipoprotein (HDL) cholesterol mass faustino 11-01-2024 Cholesterol.total/Cholesterol in HDL [Mass ratio]Serum or plasma total cholesterol/high density lipoprotein (HDL) cholesterol mass ratPeoples HospitalComment on above:3.3 - 4.4 LOW RISK4.4 - 7.1 AVERAGE RISK7.1 - 11.0 MODERATE RISK>11.0 HIGH RISKCholesterol.total/Cholesterol in HDL [Mass ratio]1.9 {ratio}Pe[facility] HospitalComment on above:3.3 - 4.4 LOW RISK4.4 - 7.1 AVERAGE RISK7.1 - 11.0 MODERATE RISK>11.0 HIGH RISKUrine microalbumin/creatinine mass ratioon 43-61-7187Wdngbnj/Creatinine DL <= 20 mg/L (U) [Mass ratio]Urine microalbumin/creatinine mass ratio0.0-29.9Peoples HospitalComment on above:NO MICROALBUMINURIA 0-29 MG/GCLINICAL MICROALBUMINURIA 30-300 MG/GMACROALBUMINURIA >300 MG/GAlbumin/Creatinine DL <= 20 mg/L (U) [Mass ratio]13.8 mg/g0.0-29.9[facility] Comment on above:NO MICROALBUMINURIA 0-29 MG/GCLINICAL MICROALBUMINURIA 30-300 MG/GMACROALBUMINURIA >300 MG/GReminderson 90-92-6778NikqlnxitTyomzituq From: Lori Bledsoe To: EU - Administrative; Sent: 02/24/2024 10:44:10 EDT Show up: 06/25/2024 09:43:00 EST Subject: 6 MO F/U Due Date/Time: 08/26/2024 09:43:00 EST Reminder/Recall PT SEEN ON 02/24/2024 BY JINNY IN [place]. PT WILL NEED A 6 MO F/U. APPT DUE BY 08/26/2024 NO ANSWER Pt is scheduled for 02/14/25.NormalFirsthealth [facility]monder [facility] HospitalLaboratory - Chemistry and Chemistry - challengeon 80-49-4045Ebrdnfdwc Ql (U)NegativeNEGATIVE [facility] HospitalGlucose (U) [Mass/Vol]NegativeNEGATIVEPeoples HospitalKetones Ql (U)TRACE mg/dLAbnormalNEGUniversity Hospitals Portage Medical CenterpH (U)5.5 [pH]5.0-9.0[facility] Specific gravity (U) [Rel density]1.0251.005-1.025Peoples HospitalUrobilinogen Qn (U)0.2 {Jose'U}/dL0.2-1.0[facility] HospitalLaboratory - Specimen informationon 49-62-2032Edofabqxim (U)CLEARCLEAR [facility] HospitalColor (U)LT YELLOWYELLOWPeoples HospitalLaboratory - Urinalysison 15-44-8169Rhtjffcqz esterase Test strip Ql (U)NegativeNEGATIVEPeoples HospitalNitrite Ql (U)Negative NEGATIVEPeoples HospitalProtein Ql (U)TRACE mg/dLNEG/TRACE [facility] HospitalNo Panel Informationon 72-03-9264Yvrre Occult BloodNegativeNEGATIVEPeoples HospitalUrine Cultureon 09-03-2024 Bacteria identified Cx Nom (U)75,000 colonies/ml mixed bacterial skin contaminants 2 Days PERFORMED BY: [place] [address] PATHOLOGIST SPINNING LATHE OPERATOR [employer] IDA ARMIJO M.D.NormalThe [facility] Point Physician GroupComment on above: Performed By: #### [facility] #### [place] [address] USAAmbulatory Visit Summaryon [id number] Visit SummaryAmbulatory Visit Summary KATHY WASHBURN :1940 [...] SUSAN RANDOLPH PA-C Where: [facility] [address] [place] [address]- You Need to Schedule the Following Appointments Follow Up with SUSAN RANDOLPH PA-C, URL When: In 6 months Where: [address] [place] [address] Medications What How Much When Instructions New estradiol topical (Estrace 0.1 mg/ g Cream) See instructions Refills: 6 apply a pea-sized amount vaginally and around the urethra 3x per week for UTI prevention Pickup at [facility] Unchanged acetaminophen-oxycodone (acetaminophen-oxycodone 325 mg-5 [...] Pharmacy Information [facility] (more content not included)...[facility] Urology Office/Clinic Noteon [id number] Office/Clinic NoteUrology Office/Clinic Note Chief Complaint Frequent [...] will consider cystoscopy w possible UD. Ordered: 65065 Measure Post Void residual urine and/or bladder capacity by US- non-imaging Complex E&M Add on G2211 E&M of Est. Patient Moderate 30-39 Min 62427 Urnls Dip Stick Auto w/o Microscopy POC 70412 2. Urgency incontinence (N39.41: Urge incontinence) S/p Botox 100u 08/30/21. [place] sxs only improved for a few weeks [...] E&M of Est. Patient Moderate 30-39 Min 53717 Orders: estradiol topical, See Instructions, 42.5 gm, Refill(s) 6, apply a pea-sized amount vaginally and around the urethra 3x per week for UTI prevention, [facility], 178, cm, 08/16/24 9:10:00 EST, Height/Length Dosing, 103, kg, 08/16/24 9:10:00 EST, Weight Do... Follow-up With When Contact Information SUSAN RANDOLPH PA-C, URL In 6 months [address] [place] [address] Additional Instructions: Patient Education Antibiotic [...] repair. Medications acetaminophen-oxycodone 325 (more content not included)...[facility]ullComment on above:Result Comment: Electronically Signed By: SUSAN RANDOLPH PA-C\.br\Date and Time Signed: 08/16/2509:05 ESTAppearance of Urine Ordered By: Ayanna Vicente on 93-23-8075Qttnydbcwa (U)Urine appearanceAbnormal ClearPeoples HospitalBacteria [Presence] in Urine by Automated Ordered By: Ayanna Vicente on 81-78-2511Mhogwvta Auto Ql (U)Bacteria [Presence] in Urine by AutomatedNone [facility] HospitalBilirubin Test strip Ql (U)Ordered By: Ayanna Vicente on 00-43-2747Ezsdikmkv Ql (U) Bilirubin.total [Presence] in Urine by Test stripNegativePeoples HospitalColor Auto (U)Ordered By: Ayanna Vicente on 47-10-1138Aqjkm (U)Color of Urine by AutoAbnormalYellowPeoples HospitalDipstick and Microscopicon 84-93-7414Wiaatzpttx (U)CloudyCritically abnormalClearThe [facility] Physician GroupComment on above:Order Comment: Name Collection Type:: Clean-Voided MidstreamPerformed By: #### CUU, ADDONUAPLUS #### [place] [address] USABacteria,UrineNone SeenNormalNone [facility] Physician GroupComment on above:Order Comment: Name Collection Type:: Clean- Voided MidstreamPerformed By: #### CUU, ADDONUAPLUS #### [facility] [address] [place] [address] USABilirubin,UrineNegativeNormalNegativeAdventhealth Westchase Er Physician GroupComment on above:Order Comment: Name Collection Type:: Clean- Voided MidstreamPerformed By: #### CUU, ADDONUAPLUS #### [place] [address] USAColor (U)Dark-YellowCritically abnormalYellowAdventhealth Westchase Er Physician GroupComment on above:Order Comment: Name Collection Type:: Clean- Voided MidstreamPerformed By: #### CUU, ADDONUAPLUS #### [place] [address] USAGlucose Ql (U)NormalNormalNormBrown Memorial Hospitale [facility] Physician GroupComment on above:Order Comment: Name Collection Type:: Clean-Voided MidstreamPerformed By: #### CUU, ADDONUAPLUS #### [place] [address] USAHyaline Casts,Urine0 [LPF]Normal0-8The [facility] Physician GroupComment on above:Order Comment: Name Collection Type:: Clean-Voided MidstreamPerformed By: #### CUU, ADDONUAPLUS #### [place] [address] USAKetones Ql (U)NegativeNormalNegativeAdventhealth Westchase Er Physician GroupComment on above:Order Comment: Name Collection Type:: Clean- Voided MidstreamPerformed By: #### CUU, ADDONUAPLUS #### [facility] [address] [place] [address] USALeukocyte esterase Test strip Ql (U)4+HighNegativeAdventhealth Westchase Er Physician GroupComment on above:Order Comment: Name Collection Type:: Clean-Voided MidstreamPerformed By: #### CUU, ADDONUAPLUS #### [place] [address] USAMucus,UrineRareNormalAdventhealth Westchase Er Physician GroupComment on above:Order Comment: Name Collection Type:: Clean-Voided MidstreamResult Comment: PERFORMED BY: [place] [address] PATHOLOGIST SPINNING LATHE OPERATOR AUTOMATIC IDA ARMIJO M.D.Performed By: #### CUU, ADDONUAPLUS #### [place] [address] USANitrite,UrinePositiveHighNegativeThe [facility] Physician GroupComment on above:Order Comment: Name Collection Type:: Clean-Voided MidstreamPerformed By: #### CUU, ADDONUAPLUS #### [place] [address] USAOccult Blood,UrineNegativeNormalNegativeThe [facility] Physician GroupComment on above:Order Comment: Name Collection Type:: Clean- Voided MidstreamResult Comment: PERFORMED BY: [place] [address] PATHOLOGIST SPINNING LATHE OPERATOR AUTOMATIC IDA ARMIJO M.D.Performed By: #### CUU, ADDONUAPLUS #### [place] [address] USApH (U)6.0 [pH]Normal5.0-9.0The [facility] Comment on above:Order Comment: Name Collection Type:: Clean-Voided Midstream Performed By: #### CUU, ADDONUAPLUS #### [place] [address] USAProtein (U) [Mass/Vol]30 mg/dLHighNegativeThe [facility] Physician GroupComment on above:Order Comment: Name Collection Type:: Clean- Voided MidstreamPerformed By: #### CUU, ADDONUAPLUS #### [place] [address] USARBC,Urine1 [HPF]Normal0-4The [facility] Comment on above:Order Comment: Name Collection Type:: Clean-Voided Midstream Performed By: #### CUU, ADDONUAPLUS #### [address] [place] [address] USASpecificy [place],Urine1.925Bibola9.001-1.030The [facility] Physician GroupComment on above:Order Comment: Name Collection Type:: Clean- Voided MidstreamPerformed By: #### CUU, ADDONUAPLUS #### [place] [address] USASquamous Epithelial Cell,Urine1 [HPF]Normal0-2The [facility] Physician GroupComment on above:Order Comment: Name Collection Type:: Clean-Voided MidstreamPerformed By: #### CUU, ADDONUAPLUS #### [place] [address] USAUrobilinogen,UrineNormalNormalNormalThe [facility] Physician GroupComment on above:Order Comment: Name Collection Type:: Clean- Voided MidstreamPerformed By: #### CUU, ADDONUAPLUS #### [place] [address] USAWBC CLUMP, UrineManyHighNone SeenThe [facility] Physician GroupComment on above:Order Comment: Name Collection Type:: Clean-Voided MidstreamPerformed By: #### CUU, ADDONUAPLUS #### [place] [address] USAWBC,UrineInnumerableHigh0-4The [facility] Comment on above:Order Comment: Name Collection Type:: Clean-Voided Midstream Performed By: #### CUU, ADDONUAPLUS #### [place] [address] USAEpithelial cells.squamous [#/area] in Urine sediment by Automated countOrdered By: Ayanna Vicente on 35-03-1216Bmfuibzfbd cells.squamous Auto (Urine sed) [#/Area]Epithelial cells.squamous [#/area] in Urine sediment by Automated count0-2FThe Jewish HospitalErythrocytes [#/area] in Urine sediment by Automated countOrdered By: Ayanna Vicente on 47-35-8633JYY Auto (Urine sed) [#/Area]Erythrocytes [#/area] in Urine sediment by Automated count 0-4FThe Jewish HospitalGlucose [Mass/volume] in Urine by Test strip Ordered By: Ayanna Vicente on 64-61-5795Byosxse Test strip (U) [Mass/Vol]Glucose [Mass/volume] in Urine by Test stripNormOhioHealth Grady Memorial Hospital Hemoglobin Test strip Ql (U)Ordered By: Ayanna Vicente on 26-06-0531Uvzpwjsuro Ql (U)Hemoglobin [Presence] in Urine by Test stripNegMadison HealthHyaline casts [#/area] in Urine sediment by Automated countOrdered By: Ayanna Vicente on 93-39-7609Svmwrmj casts Auto (Urine sed) [#/Area]Hyaline casts [#/area] in Urine sediment by Automated count0-8Peoples HospitalKetones Test strip Ql (U)Ordered By: Ayanna Vicente on 46-61-2779Iepsypo Ql (U)Ketones [Presence] in Urine by Test stripNegMadison HealthLeukocyte clumps [Presence] in Urine by AutomatedOrdered By: Ayanna Vicente on 95-02-1718Rkdxjhppf clumps Auto Ql (U)Leukocyte clumps [Presence] in Urine by AutomatedHighNone [facility] General HospitalLeukocyte esterase [Presence] in Urine by Test stripOrdered By: Ayanna Vicente on 70-88-7794Gfypbtfbp esterase Test strip Ql (U)Leukocyte esterase [Presence] in Urine by Test strip HighNegMadison HealthLeukocytes [#/area] in Urine sediment by Automated countOrdered By: Ayanna Vicente on 05-36-7551TLR Auto (Urine sed) [#/Area]Leukocytes [#/area] in Urine sediment by Automated countHigh0-4 Peoples HospitalMucus [Presence] in Urine by AutomatedOrdered By: Ayanna Vicente on 98-80-7899Wjpde Auto Ql (U)Mucus [Presence] in Urine by AutomatedPeoples HospitalNitrite Test strip Ql (U)Ordered By: Ayanna Vicente on 57-43-7840Pvokgfz Ql (U)Nitrite [Presence] in Urine by Test stripFairmont Regional Medical CenterNegMadison HealthProtein Test strip (U) [Mass/Vol]Ordered By: Ayanna Vicente on 13-84-2282Xhwcubv (U) [Mass/Vol]Protein [Mass/volume] in Urine by Test stripHighNegativeSumma Healthpecific gravity Test strip (U) [Rel density]Ordered By: Ayanna Vicente on 15-12-9034Tovsphmk gravity (U) [Rel density]Specific gravity of Urine by Test strip1.001-1.030Peoples HospitalUrine Cultureon 08-10-2024 Bacteria identified Cx Nom (U)ORGANISM: Escherichia coli (O:ESCCOL) [place] Count >100,000 Aerobic CORNELIA Charge (NMIC56) SUSCEPTIBILITY [...] RESISTANT TO ALL B-LACTAM DRUGS. PERFORMED BY: [facility] [address] [place] [address] PATHOLOGIST SPINNING LATHE OPERATOR AUTOMATIC IDA ARMIJO M.D.[facility] Physician GroupComment on above: Performed By: #### CUU, ADDONUAPLUS #### [facility] [address] StreetUrine cultureOrdered By: Ayanna Vicente on 08-10-2024 Bacteria identified Cx Nom (U)Escherichia coliAbnoOur Lady of Mercy Hospital - AndersonUrobilinogen Test strip (U) [Mass/Vol]Ordered By: Ayanna Vicente on 71-80-2903Uatuvdgonpyx (U) [Mass/Vol]Urobilinogen [Mass/volume] in Urine by Test stripNoOur Lady of Mercy Hospital - AndersonpH Test strip (U)Ordered By: Ayanna Vicente on 40-93-4410bT (U)pH of Urine by Test strip5.0-9.0Peoples HospitalALL THYROID STIM HORMONEon 53-69-4634PGM Qn2.632 m[IU]/LNOMS HealthcareCLINISYNCNOMS HealthcareEstimated glomerular filtration rate (GFR) non- Americanon 11-37-6033LDP/1.73 sq M.predicted among non-blacks MDRD (S/P/Bld) [Vol rate/Area]Estimated glomerular filtration rate (GFR) non- AmericanLow>=60 mL/min/1.73m 2FThe Jewish HospitalLaboratory - Chemistry and Chemistry - challengeon 67-57-6007Tqzrnag [Mass/Vol]9.2 mg/dL 8.5-10.1FThe Jewish HospitalChloride [Moles/Vol]105 mmol/L98-107 Peoples HospitalCO2 [Moles/Vol]30.0 mmol/L21.0-32.0Peoples HospitalCobalamin (Vitamin B12) [Mass/Vol]721 pg/fN235-0827 Peoples HospitalComment on above:Performed at: - [facility] [id number] Director: Narinder Elam PhD, Phone: [phone] [Mass/Vol]1.36 mg/dLHigh0.55-1.02Peoples HospitalGFR/1.73 sq M.predicted MDRD (S/P/Bld) [Vol rate/Area]45 mL/min/{1.73_m2}Low>=60 mL/min/1.73m 2FThe Jewish HospitalGlucose [Mass/Vol]125 mg/pGQlse45-113OxzanjjnqPeoples HospitalPotassium [Moles/Vol]4.8 mmol/L3.5-5.1FSalem Regional Medical Centerodium [Moles/Vol] 141 mmol/B823-741DclahvpbfPeoples HospitalTSH Qn2.632 m[IU]/L0.358-3.740 Peoples HospitalUrea nitrogen [Mass/Vol]28.0 mg/dLHigh7.0-18.0 Peoples HospitalUrea nitrogen/Creatinine [Mass ratio]20.6 mg/mg Summa Healtherum or plasma anion gap determinationon 74-24-2364Jxmaf gap [Moles/Vol]Serum or plasma anion gap determinationPeoples HospitalBasophils/100 WBC Manual cnt (Bld)on 06-15-2024 Basophils/100 WBC (Bld)Basophils/100 leukocytes in Blood by Manual count0.2-2.0 Peoples HospitalEosinophils/100 WBC Manual cnt (Bld)on 26-37-8588Bppakwvmqbq/100 WBC (Bld)Eosinophils/100 leukocytes in Blood by Manual count0.9-7.0Peoples HospitalErythrocyte distribution width Auto (RBC) [Ratio]on 07-31-2169Htcvfwivedr distribution width (RBC) [Ratio] Erythrocyte distribution width [Ratio] by Automated count11.0-15.0Peoples HospitalEstimated glomerular filtration rate (GFR) non- Americanon 68-50-1880LTD/1.73 sq M.predicted among non-blacks MDRD (S/P/Bld) [Vol rate/Area]Estimated glomerular filtration rate (GFR) non- Low>=60 mL/min/1.73m 2FThe Jewish HospitalGlobulin Calc (S) [Mass/Vol]on 62-23-7378Ezzvvjff (S) [Mass/Vol]Serum globulin measurement by calculation (mass/volume)Peoples HospitalHematocrit Auto (Bld) [Volume fraction]on 64-88-7529Hfxzlvankn (Bld) [Volume fraction]Hematocrit [Volume Fraction] of Blood by Automated count36.0-48.0Peoples HospitalHemoglobin [Mass/volume] in Bloodon 64-82-7973Fbqfmjxxbk (Bld) [Mass/Vol] Hemoglobin [Mass/volume] in Blood12.0-16.0Peoples HospitalLon 06-15-2024L Specimen: [id number] Received: 06/16/24 Status: JEFFERY Lemon Num: [id number] Spec Type: Impression Subm Dr: Tri Ag DO Tissues: PATHPER Procedures: PATHREVIEW Age/ Patient Sex Location Account Attending Physician Kathy Washburn 83/F LABELL [id number] Tri Ag DO SPEC NUM: [id number] RECD: 06/16/24 STATUS: JEFFERY LEMON NUM: [id number] JESSICA: 06/15/24- SUBM DR: Tri Ag DO ENTERED: 06/16/[address]: Wilda,Lab SPEC TYPE: Impression DEPT: ZOE Lance ENTERED BY: [id number] RECV BY: [id number] ORDERED: PATHREVIEW ORDERED: PATHREVIEW Pathologist Review Peripheral blood smear evaluation: - Severe lymphocytosis with atypical lymphocytes and smudges consistent with CLL, flow cytometry if clinically indicated. - Red blood cell and Platelet: Unremarkable. CPT: 52429 Jose Angel Kc MD 06/16/24 Specimen: [id number] Received: 06/16/24 Status: JEFFERY Argenis Num: [id number] Spec Type: Impression Subm Dr: Tri Ag DO Tissues: PATHPER Procedures: PATHREVIEW Patient: Kathy Washburn [id number] (Continued) Signed (signature on file) Jose Angel Kc MD 06/16/24 1635Normal The [facility] Physician GroupLaboratory - Chemistry and Chemistry - challengeon 91-46-9961Xkrkgnm [Mass/Vol]3.5 g/dL3.4-5.0Peoples HospitalALP [Catalytic activity/Vol]103 U/A86-633AgbpwwvguPeoples HospitalALT [Catalytic activity/Vol]34 U/P07-87QlmnygaprPeoples HospitalAST [Catalytic activity/Vol]25 U/C78-15KonhlfbtcPeoples HospitalBilirubin [Mass/Vol]0.3 mg/dL0.2-1.0Peoples HospitalCalcium [Mass/Vol]9.1 mg/dL8.5-10.1FThe Jewish HospitalChloride [Moles/Vol]108 mmol/L Zxba07-864BhpqfprtbPeoples HospitalCO2 [Moles/Vol]28.4 mmol/L21.0-32.0 Peoples HospitalCreatinine [Mass/Vol]1.42 mg/dLHigh0.55-1.02 Peoples HospitalGFR/1.73 sq M.predicted MDRD (S/P/Bld) [Vol rate/Area]43 mL/min/{1.73_m2}Low>=60 mL/min/1.73m 2FThe Jewish HospitalGlucose [Mass/Vol]140 mg/kYMdrv28-862GfkdgpbbsPeoples Hospital Potassium [Moles/Vol]4.3 mmol/L3.5-5.1FThe Jewish HospitalProtein [Mass/Vol]6.9 g/dL6.4-8.2FSalem Regional Medical Centerodium [Moles/Vol]143 mmol/D539-562FxsulbattPeoples HospitalUrea nitrogen [Mass/Vol]31.0 mg/dL High7.0-18.0Peoples HospitalUrea nitrogen/Creatinine [Mass ratio]21.8 mg/mgPeoples HospitalLaboratory - Hematology and Cell countson 89-74-6349Soheseqeojm/100 WBC (Bld)54.0 %20.5-60.0Peoples HospitalMonocytes/100 WBC (Bld)0.0 %Low1.7-12.0Peoples HospitalLeukocytes [#/volume] corrected for nucleated erythrocytes in Blood by Automated counon 97-16-4951MUT corrected for nucl RBC Auto (Bld) [#/Vol]Leukocytes [#/volume] corrected for nucleated erythrocytes in Blood by Automated counHigh4.0-11.0[facility] ShawH Auto (RBC) [Entitic mass]on 41-65-9768MUD (RBC) [Entitic mass]MCH [Entitic mass] by Automated count26.7-34.0Peoples HospitalMCHC Auto (RBC) [Mass/Vol]on 45-94-3588EVOH (RBC) [Mass/Vol]MCHC [Mass/volume] by Automated count29.9-35.2FThe Jewish HospitalMCV Auto (RBC) [Entitic vol]on 08-15-5511NYG (RBC) [Entitic vol]MCV [Entitic volume] by Automated count 81.0-99.0Peoples HospitalNo Panel Informationon 06-15-2024 Absolute Basophils (Manual)0.22 10 3/uLHigh0.00-0.10Peoples HospitalAdd Manual DifferentialSee commentPeoples HospitalComment on above:SEE SCANNED REPORTEosinophils # (Manual)0.44 10 3/uL0.00-0.70Peoples HospitalLymphocytes # (Manual)11.88 10 3/uLHigh1.20-3.80Peoples HospitalMonocytes # (Manual)0.00 10 3/uLLow0.30-0.80Peoples HospitalReactive Lymphocytes1.76[facility] Reactive Lymphocytes8.0 %Summa Healthegmented Neutrophils # (Manual)7.70 10 3/uLHigh1.4-6.5FThe Jewish HospitalPlatelet mean volume Auto (Bld) [Entitic vol]on 42-76-0188Ktvzmtpx mean volume (Bld) [Entitic vol]Platelet mean volume [Entitic volume] in Blood by Automated count9.5-13.5 Peoples HospitalPlatelets Auto (Bld) [#/Vol]on 06-15-2024 Platelets (Bld) [#/Vol]Platelets [#/volume] in Blood by Automated tyzpi771-936 Peoples HospitalRBC Auto (Bld) [#/Vol]on 17-81-8523UZW (Bld) [#/Vol]Erythrocytes [#/volume] in Blood by Automated count4.20-5.40Summa Healthegmented neutrophils/100 WBC Manual cnt (Bld)on 51-68-3198Yewdjjtmy neutrophils/100 WBC (Bld)Manual blood segmented neutrophils/100 xslqwerfooCzs47.0-75.0Summa Healtherum or plasma albumin/globulin mass ratioon 03-10-9637Obrinkz/Globulin [Mass ratio] Serum or plasma albumin/globulin mass ratioPeoples Hospital Serum or plasma anion gap determinationon 71-28-2775Yjjpz gap [Moles/Vol]Serum or plasma anion gap determinationSumma Healthmudge cell detectionon 66-58-7491Wzxkff cells LM Ql (Bld)Smudge cell detectionPeoples HospitalBasophils Auto (Bld) [#/Vol]on 97-08-3635Iexznmbzr (Bld) [#/Vol]Automated basophil count<0.11[facility] Basophils/100 WBC Auto (Bld)on 51-41-0548Jnxtgjvcf/100 WBC (Bld)Automated basophil %Peoples HospitalBlood manual differential comment interpretation narrativeon 14-11-8466Dgcelu differential comment Himanshu (Bld) [Interp]Blood manual differential comment interpretation narrativePeoples HospitalCBC W Auto Differential panel (Bld)on 43-14-1301Feibvnnik (Bld) [#/Vol]0.00 10*3/uLNormal<0.11CMarietta Memorial Hospital on above: Order Comment: Specimen Type: BLOOD SPECIMEN Ordering Facility: [facility] Address: [address] [place], [place] [address]Performed By: #### 86012-3 #### [facility] CLIA [id number] [address] [place] [address] LAB CLIA [id number] [address] [place] [address] [place] AMERICABasophils/100 WBC (Bld)0.0 % NormalOhioHealth O'Bleness Hospital on above:Order Comment: Specimen Type: BLOOD SPECIMEN Ordering Facility: [facility] Address: [address] [place], [place] [address]Performed By: #### 79441-1 #### [facility] CLIA [id number] [address] [place] [address] LAB CLIA [id number] [address] [place] [address] [place] AMERICADifferential cell count method Nom (Bld)ManualNormalCMarietta Memorial Hospital on above:Order Comment: Specimen Type: BLOOD SPECIMEN Ordering Facility: [facility] Address: [address] [place], [place] [address]Performed By: #### 33546-9 #### [facility] CLIA [id number] [address] [place] [address] LAB CLIA [id number] [address] [place] [address] [place] AMERICAEosinophils (Bld) [#/Vol] 0.19 10*3/uLNormal<0.46[facility] on above:Order Comment: Specimen Type: BLOOD SPECIMEN Ordering Facility: [facility] Address: [address] [place], [place] [address]Performed By: #### 75088-7 #### DANIELTXGRACIELA [facility] CLIA [id number] [address] [place] [address] LAB CLIA [id number] [address] [place] [address] [place] AMERICAEosinophils/100 WBC (Bld)1.0 %NormalOhioHealth O'Bleness Hospital on above:Order Comment: Specimen Type: BLOOD SPECIMEN Ordering Facility: [facility] Address: [address] [place], [place] [address]Performed By: #### 39126-4 #### DANIELTXGRACIELA [facility] CLIA [id number] [address] [place] [address] LAB CLIA [id number] [address] [place] [address] [place] AMERICAErythrocyte distribution width (RBC) [Ratio]14.2 %Bpolwu29.5-15.0[facility] on above:Order Comment: Specimen Type: BLOOD SPECIMEN Ordering Facility: [facility] Address: [address] [place], [place] [address]Performed By: #### 52289-0 #### DANIELTXGRACIELA [facility] CLIA [id number] [address] [place] [address] LAB CLIA [id number] [address] [place] [address] [place] AMERICAHematocrit (Bld) [Volume fraction]38.4 %Nqyvvw87.0-46.0[facility] on above:Order Comment: Specimen Type: BLOOD SPECIMEN Ordering Facility: [facility] Address: [address] [place], [place] [address]Performed By: #### 81799-0 #### [facility] HOSPITALGRACIELA [facility] CLIA [id number] [address] [place] [address] LAB CLIA [id number] [address] [place] [address] [place] AMERICAHemoglobin (Bld) [Mass/Vol] 12.7 g/mIIiqouj61.5-15.5CMarietta Memorial Hospital on above:Order Comment: Specimen Type: BLOOD SPECIMEN Ordering Facility: [facility] Address: [address] [place], [place] [address]Performed By: #### 74446-1 #### EDMUNDO [facility] CLIA [id number] [address] [place] [address] LAB CLIA [id number] [address] [place] [address] [place] AMERICALymphocytes (Bld) [#/Vol] 14.61 10*3/uLHigh1.00-4.00[facility] on above:Order Comment: Specimen Type: BLOOD SPECIMEN Ordering Facility: [facility] Address: [address] [place], [place] [address]Performed By: #### 55168-6 #### EDMUNDO [facility] CLIA [id number] [address] [place] [address] LAB CLIA [id number] [address] [place], [place] [address] [place] AMERICALymphocytes/100 WBC (Bld) 76.0 %NormalOhioHealth O'Bleness Hospital on above:Order Comment: Specimen Type: BLOOD SPECIMEN Ordering Facility: [facility] Address: [address] [place], [place] [address]Performed By: #### 01636-0 #### EDMUNDO [facility] CLIA [id number] [address] [place] [address] LAB CLIA [id number] [address] [place] [address] [place] AMERICAMCH (RBC) [Entitic mass]30.0 xqJtqcpz43.0-34.0[facility] on above:Order Comment: Specimen Type: BLOOD SPECIMEN Ordering Facility: [facility] Address: [address] [place], [place] [address]Performed By: #### 64251-7 #### JACEYGRACIELA [facility] CLIA [id number] [address] [place] [address] LAB CLIA [id number] [address] [place] [address] [place] AMERICAMCHC (RBC) [Mass/Vol]33.1 g/fALddiow40.5-36.0[facility] on above:Order Comment: Specimen Type: BLOOD SPECIMEN Ordering Facility: [facility] Address: [address] [place], [place] [address]Performed By: #### 12171-5 #### [facility]' HOSPITALGRACIELA [facility] CLIA [id number] [address] [place] [address] LAB CLIA [id number] [address] [place] [address] [place] AMERICAMCV (RBC) [Entitic vol]90.8 cQNesxcv59.0-100.0[facility] on above:Order Comment: Specimen Type: BLOOD SPECIMEN Ordering Facility: [facility] Address: [address] [place], [place] [address]Performed By: #### 08807-4 #### [facility] HOSPITALGRACIELA [facility] CLIA [id number] [address] [place] [address] LAB CLIA [id number] [address] [place] [address] [place] AMERICAMonocytes (Bld) [#/Vol]0.19 10*3/uLNormal<0.87[facility] on above:Order Comment: Specimen Type: BLOOD SPECIMEN Ordering Facility: [facility] Address: [address] [place], [place] [address]Performed By: #### 05731-6 #### [facility] CLIA [id number] [address] [place] [address] LAB CLIA [id number] [address] [place] [address] [place] AMERICAMonocytes/100 WBC (Bld)1.0 % NormalOhioHealth O'Bleness Hospital on above:Order Comment: Specimen Type: BLOOD SPECIMEN Ordering Facility: [facility] Address: [address] [place], [place] [address]Performed By: #### 50681-7 #### EDMUNDO [facility] CLIA [id number] [address] [place] [address] LAB CLIA [id number] [address] [place] [address] [place] AMERICANeutrophils (Bld) [#/Vol] 4.23 10*3/uLNormal1.45-7.50[facility] on above:Order Comment: Specimen Type: BLOOD SPECIMEN Ordering Facility: [facility] Address: [address] [place], [place] [address]Performed By: #### 85197-0 #### DANIELTXGRACIELA [facility] CLIA [id number] [address] [place] [address] LAB CLIA [id number] [address] [place] [address] [place] AMERICANeutrophils/100 WBC (Bld) 22.0 %NormalOhioHealth O'[facility] on above:Order Comment: Specimen Type: BLOOD SPECIMEN Ordering Facility: [facility] Address: [address] [place], [place] [address]Performed By: #### [id number] #### [facility] HOSPITALGRACIELA [facility] CLIA [id number] [address] [place] [address] LAB CLIA [id number] [address] [place] [address] [place] OF AMERICANucleated RBC (Bld) [#/Vol] 10*3/uLNormal<0.01[facility] on above:Order Comment: Specimen Type: BLOOD SPECIMEN Ordering Facility: [facility] Address: [address] [place], [place] [address]Performed By: #### 63187-6 #### [facility] CLIA [id number] [address] [place] [address] LAB CLIA [id number] [address] [place] [address] [place] AMERICANucleated RBC/100 WBC (Bld) [Ratio]0.0 /100 WBCNormalCMarietta Memorial Hospital on above:Order Comment: Specimen Type: BLOOD SPECIMEN Ordering Facility: [facility] Address: [address] [place], [place] [address]Performed By: #### 27656-1 #### [facility] CLIA [id number] [address] [place] [address] LAB CLIA [id number] [address] [place] [address] [place] AMERICAOvalocytes LM Ql (Bld)Few NormalOhioHealth O'Bleness Hospital on above:Order Comment: Specimen Type: BLOOD SPECIMEN Ordering Facility: [facility] Address: [address] [place], [place] [address]Performed By: #### 49287-5 #### [facility] CLIA [id number] [address] [place] [address] LAB CLIA [id number] [address] [place] [address] [place] AMERICAPlatelet mean volume (Bld) [Entitic vol]10.4 fLNormal9.0-12.7CMarietta Memorial Hospital on above: Order Comment: Specimen Type: BLOOD SPECIMEN Ordering Facility: [facility] Address: [address] [place], [place] [address]Performed By: #### 61252-4 #### [facility] CLIA [id number] [address] [place] [address] LAB CLIA [id number] [address] [place] [address] [place] AMERICAPlatelets (Bld) [#/Vol]244 10*3/cPSbcutm385-562LvylytuqzOhioHealth O'Bleness Hospital on above:Order Comment: Specimen Type: BLOOD SPECIMEN Ordering Facility: [facility] Address: [address] [place], [place] [address]Performed By: #### 17279-2 #### [facility] CLIA [id number] [address] [place] [address] LAB CLIA [id number] [address] [place] [address] [place] AMERICAPlatelets Estimate (Bld) [#/Vol]AdequateNormalCMarietta Memorial Hospital on above:Order Comment: Specimen Type: BLOOD SPECIMEN Ordering Facility: [facility] Address: [address] [place], [place] [address]Performed By: #### 57340-7 #### [facility] CLIA [id number] [address] [place] [address] LAB CLIA [id number] [address] [place] [address] [place] AMERICAPolychromasia LM Ql (Bld) SlightNormalCMarietta Memorial Hospital on above:Order Comment: Specimen Type: BLOOD SPECIMEN Ordering Facility: [facility] Address: [address] [place], [place] [address]Performed By: #### 05763-6 #### [facility]EL[facility] CLIA [id number] [address] [place] [address] LAB CLIA [id number] [address] [place] [address] [place] AMERICARBC (Bld) [#/Vol]4.23 10*6/uLNormal3.90-5.20[facility] on above:Order Comment: Specimen Type: BLOOD SPECIMEN Ordering Facility: [facility] Address: [address] [place], [place] [address]Performed By: #### 83690-1 #### [facility]GR[facility]IEL[facility] CLIA [id number] [address] [place] [address] LAB CLIA [id number] [address] [place] [address] [place] AMERICARED CELL MORPHReviewed: see results of individual morphologiesNormalCMarietta Memorial Hospital on above:Order Comment: Specimen Type: BLOOD SPECIMEN Ordering Facility: [facility] Address: [address] [place], [place] [address]Performed By: #### 61898-9 #### [facility] CLIA [id number] [address] [place] [address] LAB CLIA [id number] [address] [place] [address] [place] AMERICAWBC (Bld) [#/Vol]19.22 10*3/uLHigh3.70-11.00[facility] on above:Order Comment: Specimen Type: BLOOD SPECIMEN Ordering Facility: [facility] Address: [address] [place], [place] [address]Result Comment: No clot detected.Results checked and verified.Performed By: #### 64800-1 #### [facility] LAB CLIA [id number] [address] [place] [address] LAB CLIA [id number] [address] [place] [address] [place] AMERICACNOVSPon 59-63-2398QJDXXD Visit (SP) Office ([place]) KATHY WASHBURN ([id number]) 1940 F Date Time Provider Department 05/26/24 2:00 PM CHAD FREITAS During your visit today, we recorded the following information about you: Temperature Pulse Respiration Blood pressure 97 degrees 70/minute 16/minute 92/51 Weight Height 105.3 kg 1.727 m Chad Freitas MD 05/26/2024 2:41 PM Signed PATIENT NAME: Kathy Washburn CLINIC NO.: [id number] ATTENDING PHYSICIAN: Chad Freitas MD DATE OF [...] sweats - Did mammogram last week at [facility]. - Scheduled to see [employer] PAST MEDICAL HISTORY Diagnosis Date Depression Diabetes [...] Ref Range Status 05/26 (more content not included)...NormalTrihealth Good [facility]itan [facility] Comprehensive metabolic 2000 panelOrdered By: Malka Galvez on 61-63-5578Zufwewj [Mass/Vol]4.1 g/dL3.9 - 4.9 g/dLBakersfield ClinicALP [Catalytic activity/Vol]107 U/L34 - 123 U/LCleveland ClinicALT [Catalytic activity/Vol]21 U/L7 - 38 U/L [place] ClinicAnion gap [Moles/Vol]11 mmol/L8 - 15 mmol/LCleveland ClinicAST [Catalytic activity/Vol]23 U/L13 - 35 U/LCleveland ClinicBilirubin [Mass/Vol]0.2 mg/dL0.2 - 1.3 mg/dLBakersfield ClinicCalcium [Mass/Vol]9.3 mg/dL8.5 - 10.2 mg/dL [place] ClinicChloride [Moles/Vol]105 mmol/L98 - 107 mmol/LCleveland ClinicCO2 [Moles/Vol]26 mmol/L22 - 30 mmol/LCleveland ClinicCreatinine [Mass/Vol]1.20 mg/dLHigh0.58 - 0.96 mg/dLBakersfield ClinicGFR/1.73 sq M.predicted among non- blacks MDRD [...] eGFRmay not accurately reflect actual GFR.Glucose [Mass/Vol]231 mg/xFLdrv51 - 99 mg/dLWyandot Memorial Hospital on above:The [place] Diabetes Association (ADA) provides guidance for cutoff [...] Standards of Medical Care in Diabetes 2016, [employer] Diabetes [employer]. Diabetes Care. 2016.39(Suppl 1). Interpretation and review of laboratory resultsAbnormalCleveland ClinicPotassium [Moles/Vol]5.3 mmol/LHigh3.7 - 5.1 mmol/LClevelecu health duplin hospital ClinicProtein [Mass/Vol]6.9 g/dL6.3 - 8.0 g/dLProMedica Memorial Hospitalodium [Moles/Vol]142 mmol/L136 - 144 mmol/L Summa HealthUrea nitrogen [Mass/Vol]36 mg/dLHigh7 - 21 mg/dLLicking Memorial HospitalComprehensive metabolic 2000 panelon 68-58-2474Rcbptbr [Mass/Vol]4.1 g/dLNormal3.9-4.9CMarietta Memorial Hospital on above:Order Comment: Specimen Type: BLOOD SPECIMEN Ordering Facility: [facility] Address: [address] [place] [address]Hpsbtrzhh By: #### 2532-0, 49808-4 #### [facility] CLIA [id number] [address] [place] [address] 10897FYK [Catalytic activity/Vol]107 U/TQbspgm99-294CtbcvegtoOhioHealth O'Bleness Hospital on above:Order Comment: Specimen Type: BLOOD SPECIMEN Ordering Facility: [facility] Address: [address] [place], [place] [address]Performed By: #### 2532-0, 73154-0 #### [facility] CLIA [id number] [address] [place] [address] 03084RRA [Catalytic activity/Vol]21 U/LNormal7-38[facility] on above:Order Comment: Specimen Type: BLOOD SPECIMEN Ordering Facility: [facility] Address: [address] [place], [place] [address]Performed By: #### 2532-0, 16920-8 #### [facility] CLIA [id number] [address] [place] [address]Ioqkq gap [Moles/Vol]11 mmol/LNormal8-15[facility] on above:Order Comment: Specimen Type: BLOOD SPECIMEN Ordering Facility: [facility] Address: [address] [place], [place] [address]Performed By: #### 2532-0, 76476-9 #### [facility] CLIA [id number] [address] [place] [address] 75[address]TEW [Catalytic activity/Vol]23 U/PDmuiuv07-30RevlnhwbzOhioHealth O'Bleness Hospital on above:Order Comment: Specimen Type: BLOOD SPECIMEN Ordering Facility: [facility] Address: [address] [place], [place] [address]Performed By: #### 2532-0, 54738-6 #### [facility] CLIA [id number] [address] [place] [address] 87327Fhzoormtf [Mass/Vol]0.2 mg/dLNormal0.2-1.3CMarietta Memorial Hospital on above:Order Comment: Specimen Type: BLOOD SPECIMEN Ordering Facility: [facility] Address: [address] [place], [place] [address]Performed By: #### 2532-0, 79992-3 #### [facility] CLIA [id number] [address] [place] [address]Rahknam [Mass/Vol]9.3 mg/dLNormal8.5-10.2CMarietta Memorial Hospital on above:Order Comment: Specimen Type: BLOOD SPECIMEN Ordering Facility: [facility] Address: [address] [place], [place] [address]Performed By: #### 2532-0, 28472-3 #### [facility] CLIA [id number] [address] [place] [address] 93727Mhvxoltm [Moles/Vol]105 mmol/VQthqnv02-346IhtjfvlmrOhioHealth O'Bleness Hospital on above:Order Comment: Specimen Type: BLOOD SPECIMEN Ordering Facility: [facility] Address: [address] [place], [place] [address]Performed By: #### 2532-0, 27020-9 #### [facility] CLIA [id number] [address] [place] [address] 55960LX9 [Moles/Vol]26 mmol/AGvhmto27-15QlgcdweuqTrihealth Good Samaritan Hospital Comment on above:Order Comment: Specimen Type: BLOOD SPECIMEN Ordering Facility: [facility] Address: [address] [place], [place] [address]Performed By: #### 2532-0, 97776-4 #### [facility] CLIA [id number] [address] [place] [address] 58[address]Vefgbensmd [Mass/Vol]1.20 mg/dLHigh0.58-0.96[facility] on above:Order Comment: Specimen Type: BLOOD SPECIMEN Ordering Facility: [facility] Address: [address] [place], [place] [address]Performed By: #### 2532-0, 36720-4 #### [facility] CLIA [id number] [address] [place] [address]14[address]Ulacfggtsj and Glomerular filtration rate.predicted panel (S/P/Bld)46 mL/min/1.73m???Low>=60[facility] on above: Order Comment: Specimen Type: BLOOD SPECIMEN Ordering Facility: [facility] Address: [address] [place] [address]Kxgrdf Comment: Estimated Glomerular Filtration Rate (eGFR) is [...] accurately reflect actual GFR.Performed By: #### 2532-0, 87762-9 #### [facility] CLIA [id number] [address] [place], [place] [address]Hmehoor [Mass/Vol]231 mg/mMQvjz27-05UrqhywlpaTrihealth Good Samaritan Hospital Comment on above:Order Comment: Specimen Type: BLOOD SPECIMEN Ordering Facility: [facility] Address: [address] [place] [address]Ovmjsa Comment: The [place] Diabetes Association (ADA) provides guidance for cutoff [...] Standards of Medical Care in Diabetes 2016, [place] Diabetes Association. Diabetes Care. 2016.39(Suppl 1).Performed By: #### 2532-0, 50862-2 #### [facility] CLIA [id number] [address] [place], [place] [address]Lvqkwjbco [Moles/Vol]5.3 mmol/LHigh3.7-5.1COhioHealth Dublin Methodist HospitalComment on above:Order Comment: Specimen Type: BLOOD SPECIMEN Ordering Facility: [facility] Address: [address] [place], [place] [address]Skvjrwgfy By: #### 2532-0, 69612-5 #### [facility] CLIA [id number] [address] [place], [place] [address]Ggkxgnp [Mass/Vol]6.9 g/dLNormal6.3-8.0[facility] on above:Order Comment: Specimen Type: BLOOD SPECIMEN Ordering Facility: [facility] Address: [address] [place], [place] [address]Performed By: #### 2532-0, 41583-2 #### [facility] CLIA [id number] [address] [place], [place] [address]Tehgum [Moles/Vol]142 mmol/WBvknpc672-498TncxaucejOhioHealth O'Bleness Hospital on above:Order Comment: Specimen Type: BLOOD SPECIMEN Ordering Facility: [facility] Address: [address] [place], [place] [address]Performed By: #### 2532-0, 92819-3 #### [facility] CLIA [id number] [address] [place] [address] 77[address]Wldq nitrogen [Mass/Vol]36 mg/dLHigh7-21[facility] on above:Order Comment: Specimen Type: BLOOD SPECIMEN Ordering Facility: [facility] Address: [address] [place], [place] [address]Performed By: #### 2532-0, 06093-4 #### [facility] CLIA [id number] [address] [place] [address]Ppgtdmjzbfu/100 WBC Auto (Bld)on 76-17-6508Uyoztjxmygn/100 WBC (Bld)Automated eosinophil %Peoples HospitalErythrocyte distribution width Auto (RBC) [Ratio]on 55-61-7265Vsmlrcnucac distribution width (RBC) [Ratio]Erythrocyte distribution width [Ratio] by Automated count11.5-15.0 Peoples HospitalHematocrit Auto (Bld) [Volume fraction]on 75-21-6428Umltwwtnsb (Bld) [Volume fraction]Hematocrit [Volume Fraction] of Blood by Automated count36.0-46.0Peoples HospitalHemoglobin [Mass/volume] in Bloodon 21-41-7314Mnogezujof (Bld) [Mass/Vol]Hemoglobin [Mass/volume] in Blood11.5-15.5FThe Jewish HospitalLACTATE DEHYDROGENASEon 86-94-1271AWZ [Catalytic activity/Vol]184 U/L135 - 214 U/L [facility] SerPl-cCncon 04-76-6111NJB [Catalytic activity/Vol]184 U/L Mgldoz296-009DxjysjnuhTrihealth Good Samaritan HospitalComment on above:Order Comment: Specimen Type: BLOOD SPECIMEN Order[facility] Facility: [facility] Address: [address] [address]Performed By: #### 2532-0, 62205-1 #### [facility] CLIA [id number] [address] [place] [address]DNB [Catalytic activity/Vol]on 61-14-9713Dgvmrkpulkmwju and review of laboratory resultsNormalCPeoples Hospitaloratory - Chemistry and Chemistry - challengeon 30-58-3276Ogvnlxs [Mass/Vol]4.1 g/dL 3.9-4.9Peoples HospitalALP [Catalytic activity/Vol]107 U/L 34-123Peoples HospitalALT [Catalytic activity/Vol]21 U/L7-38 [facility]oples HospitalAST [Catalytic activity/Vol]23 U/L13-35 Peoples HospitalBilirubin [Mass/Vol]0.2 mg/dL0.2-1.3FThe Jewish HospitalCalcium [Mass/Vol]9.3 mg/dL8.5-10.2FThe Jewish HospitalChloride [Moles/Vol]105 mmol/V98-341IwcsnjiabPeoples HospitalCO2 [Moles/Vol]26 mmol/Q29-93PhdkcrkrbPeoples HospitalCreatinine [Mass/Vol]1.20 mg/dLHigh0.58-0.96Peoples HospitalGlucose [Mass/Vol]231 mg/iVHxsb38-33GwismowbqPeoples HospitalComment on above: The [place] Diabetes Association (ADA) provides guidance for cutoff [...] diabetes.Reference: Standardsof Medical Care in Diabetes 2016, [place] Diabetes Association. Diabetes Care. 2016.39(Suppl 1).LDH [Catalytic activity/Vol]184 U/S659-901IrnpoijxgPeoples HospitalPotassium [Moles/Vol]5.3 mmol/LHigh3.7-5.1FSalem Regional Medical Centerodium [Moles/Vol]142 mmol/L247-273YzcbryazkPeoples HospitalUrea nitrogen [Mass/Vol]36 mg/dLHigh7-21[facility] - Hematology and Cell countson 15-48-0862Igqddjccvkf (Bld) [#/Vol] 0.19 10*3/uL<0.46Peoples HospitalLeukocytes [#/volume] corrected for nucleated erythrocytes in Blood by Automated counon 29-50-3486IEF corrected for nucl RBC Auto (Bld) [#/Vol]Leukocytes [#/volume] corrected for nucleated erythrocytes in Blood by Automated counHigh3.70-11.00Peoples HospitalComment on above:No clot detected.Results checked and verified.Lymphocytes Auto (Bld) [#/Vol]on 29-47-0282Nmgtibkfype (Bld) [#/Vol] Lymphocytes [#/volume] in Blood by Automated countHigh1.00-4.00Peoples HospitalLymphocytes/100 WBC Auto (Bld)on 05-26-2024 Lymphocytes/100 WBC (Bld)Lymphocytes/100 leukocytes in Blood by Automated count Peoples HospitalMCH Auto (RBC) [Entitic mass]on 67-85-9826JNQ (RBC) [Entitic mass]MCH [Entitic mass] by Automated count26.0-34.0Peoples HospitalMCHC Auto (RBC) [Mass/Vol]on 73-86-8375LCSU (RBC) [Mass/Vol]MCHC [Mass/volume] by Automated count30.5-36.0Peoples HospitalMCV Auto (RBC) [Entitic vol]on 05-41-5891JHJ (RBC) [Entitic vol] MCV [Entitic volume] by Automated count80.0-100.0Peoples HospitalMonocytes Auto (Bld) [#/Vol]on 84-96-2098Dofasldyd (Bld) [#/Vol]Automated blood monocyte count<0.87Peoples HospitalMonocytes/100 WBC Auto (Bld)on 28-57-0966Gwlytmpwo/100 WBC (Bld)Automated monocyte %Peoples HospitalNeutrophils Auto (Bld) [#/Vol]on 28-46-9771Qbyeaqxudzs (Bld) [#/Vol]Neutrophils [#/volume] in Blood by Automated count1.45-7.50Peoples HospitalNeutrophils/100 WBC Auto (Bld)on 05-26-2024 Neutrophils/100 WBC (Bld)Automated neutrophil %[facility] No Panel Informationon 14-89-6129Lnyymkkbb GFR (CKD-EPI)46 mL/min/1.73m???Low >=60Peoples HospitalComment on above:Estimated Glomerular Filtration Rate (eGFR) [...] GFR.Normal RBC MorphologyReviewed: see results of individual morphologiesPeoples HospitalNucleated RBC Auto (Bld) [#/Vol]on 31-24-5387Keyqsbfyy RBC (Bld) [#/Vol]Nucleated erythrocytes [#/volume] in Blood by Automated count<0.01[facility] Nucleated erythrocytes [Presence] in Blood by Automated counton 05-26-2024 Nucleated RBC Auto Ql (Bld)Nucleated erythrocytes [Presence] in Blood by Automated countPeoples HospitalOvalocyte detectionon 11-13-2024 Ovalocytes LM Ql (Bld)Ovalocyte detectionPeoples Hospital Platelet adequacy [Presence] in Blood by Light microscopyon 70-47-8063Xxfmqkclg LM Ql (Bld)Platelet adequacy [Presence] in Blood by Light microscopyPeoples HospitalPlatelet mean volume Auto (Bld) [Entitic vol]on 16-72-4162Sjlosayq mean volume (Bld) [Entitic vol]Platelet mean volume [Entitic volume] in Blood by Automated count9.0-12.7FThe Jewish Hospital Platelets Auto (Bld) [#/Vol]on 78-01-7726Dxfpauvfy (Bld) [#/Vol]Platelets [#/volume] in Blood by Automated ntqha565-125YmiemdhjmPeoples Hospital Polychromasia [Presence] in Blood by Light microscopyon 08-80-0788Zzmswxkmbnnfz LM Ql (Bld)Polychromasia [Presence] in Blood by Light microscopyPeoples HospitalProtein [Mass/volume] in Serum or Plasmaon 05-26-2024 Protein [Mass/Vol]Protein [Mass/volume] in Serum or Plasma6.3-8.0Peoples HospitalRBC Auto (Bld) [#/Vol]on 25-36-5705TDL (Bld) [#/Vol] Erythrocytes [#/volume] in Blood by Automated count3.90-5.20Summa Healtherum or plasma anion gap determinationon 03-75-3564Cwjbs gap [Moles/Vol]Serum or plasma anion gap determination8-15Peoples HospitalX-ray reportOrdered By: Stanford Arndt on 23-59-0585Eotit reportOUR LADY OF MERCY [facility] Main [place] [id number] XRay Report Signed Patient: Kathy Washburn MR#: [id number] : 1940 Acct:[id number] Age/Sex: 83 / F ADM Date: 4 Loc: XD Room: Type: [facility] Attending Dr: Ayanna Vicente DO Copies to: Ayanna Vicente DO~ Ordering Provider: Ayanna Vicente DO Date of Service: 05/26/24 XR/XR hip LT min 2V(w/wo pelvis)*: M25.552 - Pain in left hip ([id number]) XR/XR knee LT 4V*: M25.552 - Pain [...] Stanford Arndt M.D.05/26/2024 4:55 PM Dictation Location: [place] [address] Transcribed By: [facility] 05/26/241654 Dictated By: Stanford Arndt DO 05/26/241652 Signed By: 05/26/24 1655 Peoples HospitalXR knee LT 4V*on 30-17-3069WZ knee LT 4V* [facility] [place] [address] XRay Report Signed Patient: Kathy Washburn MR#: [id number] : 1940 Acct:[id number] Age/Sex: 83 / F ADM Date: 05/26/24 Loc: XD Room: Type: [facility] Attending Dr: Ayanna Vicente DO Copies to: Ayanna Vicente DO Ordering Provider: Ayanna Vicente DO Date of Service: 05/26/24 XR/XR hip LT min 2V(w/wo pelvis)*: M25.552 - Pain in left hip ([id number]) XR/XR knee LT 4V*: M25.552 - Pain [...] Stanford Arndt M.D.05/26/2024 4:55 PM Dictation Location: [place] [address] Transcribed By: [facility] 05/26/241654 Dictated By: Stanford Arndt DO 05/26/241652 Signed By: 05/26/241654TGH Spring Hill Physician GroupCNOVon 66-03-0807BDRWMmuedq Visit (RHEUAV) KATHY WASHBURN ([id number]) 1940 F Date Time Provider Department 05/17/24 1:00 PM ZOHAIB GERMAN During your visit today, we recorded the following information about you: Pulse Blood pressure Weight Height 62/minute 117/75 103.4 kg 1.727 m Zohaib German MD 05/17/2024 1:34 PM Signed [facility] Date of Service: 05/17/2024 Patient: Kathy Washburn Medical Record: [id number] Primary Care Physician: Ayanna Vicente DO Last Rheumatology visit: None at [facility] Referring Provider: No referring provider defined for [...] Used Substance Use Topics (more content not included)...NormalTrihealth Good Samaritan HospitalAlanine aminotransferase [Enzymatic activity/volume] in Serum or Plasma Ordered By: Ayanna Vicente on 43-56-4994CGE [Catalytic activity/Vol]25 U/L [facility] HospitalALT [Catalytic activity/Vol]Alanine aminotransferase [Enzymatic activity/volume] in Serum or PlasmaPeoples HospitalAlbumin [Mass/volume] in Serum or Plasma by Bromocresol green (BCG) dye binding methoOrdered By: Ayanna Vicente on 40-87-5813Bmgywtj BCG dye [Mass/Vol]4.1 g/dL3.5-5.7FThe Jewish HospitalAlbumin BCG dye [Mass/Vol]Albumin [Mass/volume] in Serum or Plasma by Bromocresol green (BCG) dye binding metho3.5-5.7FThe Jewish HospitalAlkaline phosphatase [Enzymatic activity/volume] in Serum or PlasmaOrdered By: Ayanna Vicente on 03-52-4846NFK [Catalytic activity/Vol]89 U/K91-822YlfjadtqjPeoples HospitalALP [Catalytic activity/Vol]Alkaline phosphatase [Enzymatic activity/volume] in Serum or Xdrvso48-958YpoawnffePeoples Hospital Appearance of UrineOrdered By: Ayanna Vicente on 20-51-2722Frixlfqfyr (U)Urine appearanceCleMount St. Mary HospitalAspartate aminotransferase [Enzymatic activity/volume] in Serum or PlasmaOrdered By: Ayanna Vicente on 59-47-8759HRI [Catalytic activity/Vol]23 U/L87-03MtstosxgjPeoples HospitalAST [Catalytic activity/Vol]Aspartate aminotransferase [Enzymatic activity/volume] in Serum or Clpblo98-32MnuwmqicbPeoples Hospital Bacteria [Presence] in Urine sediment by Light microscopyOrdered By: Ayanna Vicente on 45-60-3155Coqdnbax LM Ql (Urine sed)4+ [HPF]HighWilson Street HospitalBacteria LM Ql (Urine sed)Bacteria [Presence] in Urine sediment by Light microscopyHighNone [facility] Bilirubin Test strip Ql (U)Ordered By: Ayanna Vicente on 63-82-8303Ugfpjivya Ql (U)NegativeNegativePeoples HospitalBilirubin Ql (U) Bilirubin.total [Presence] in Urine by Test stripNegativePeoples HospitalBilirubin.total [Mass/volume] in Serum or PlasmaOrdered By: Ayanna Vicente on 31-61-6386Sjptcpuez [Mass/Vol]0.4 mg/dL0.3-1.0Peoples HospitalBilirubin [Mass/Vol]Bilirubin.total [Mass/volume] in Serum or Plasma0.3-1.0Peoples HospitalBlood estimated average glucose determination by estimation from glycated hemoglobinOrdered By: Ayanna Vicente on 30-47-0668Cyncqio glucose Estimated from glycated hemoglobin (Bld) [Mass/Vol] Glucose mean value [Mass/volume] in Blood Estimated from glycated hemoglobin Peoples HospitalCalcium [Mass/volume] in Serum or PlasmaOrdered By: Ayanna Vicente on 77-85-2173Otabhwk [Mass/Vol]9.6 mg/dL8.6-10.3FThe Jewish HospitalCalcium [Mass/Vol]Calcium [Mass/volume] in Serum or Plasma8.6-10.3FThe Jewish HospitalCarbon dioxide, total [Moles/volume] in Serum or PlasmaOrdered By: Ayanna Vicente on 24-22-4686OW3 [Moles/Vol]30.2 mmol/L21.0-31.0Peoples HospitalCO2 [Moles/Vol] Carbon dioxide, total [Moles/volume] in Serum or Letysb79.0-31.0Peoples HospitalChloride [Moles/volume] in Serum or PlasmaOrdered By: Ayanna Vicente on [id number] [Moles/Vol]105 mmol/Z20-373JzfskqsdpPeoples HospitalChloride [Moles/Vol]Chloride [Moles/volume] in Serum or Plasma 98-107[facility] HospitalCholesterol [Mass/volume] in Serum or PlasmaOrdered By: Ayanna Vicente on [id number] [Mass/Vol]134 mg/dLLow 140-200Peoples HospitalComment on above:Chol less than 200 mg/dl low riskChol 201-239 mg/dl borderline riskChol 240 mg/dl and greater high riskCholesterol [Mass/Vol]Cholesterol [Mass/volume] in Serum or PbdmidCmc849-597 [facility] HospitalComment on above:Chol less than 200 mg/dl low riskChol 201-239 mg/dl borderline riskChol 240 mg/dl and greater high risk Cholesterol in HDL [Mass/volume] in Serum or PlasmaOrdered By: Ayanna Vicente on 80-81-6123Drnyiwhhlew in HDL [Mass/Vol]Serum or plasma high density lipoprotein (HDL) cholesterol vqrfnkdoywu01-88ZjaugniwbPeoples HospitalComment on above:HDL CHOL ATP-III CLASSIFICATION Cardiovascular RiskHDL > or equal to 60 mg/dL LOWHDL < 40 mg/dL HIGHCholesterol in LDL Calc [Mass/Vol]Ordered By: Ayanna Vicente on 85-57-9027Flrmsmqgrgs in LDL [Mass/Vol]46 mg/dL0-100Peoples HospitalComment on above:LDL ATP III CLASSIFICATIONLDL less than 100 mg/dL OptimalLDL 100-129 mg/dL Near or above zhwwswqPQS911-362 mg/dL Borderline highLDL 160-189 mg/dL HighLDL greater than 189 mg/dL Very highCholesterol in LDL [Mass/Vol]Cholesterol in LDL [Mass/volume] in Serum or Plasma by calculation 0-100Peoples HospitalComment on above:LDL ATP III CLASSIFICATIONLDL less than 100 mg/dL OptimalLDL 100-129 mg/dL Near or above vhenbwaDGB255-567 mg/dL Borderline highLDL 160-189 mg/dL HighLDL greater than 189 mg/dL Very highCholesterol in VLDL Calc [Mass/Vol]Ordered By: Ayanna Vicente on 30-71-6922Reqipuothcy in VLDL [Mass/Vol]47 mg/dLPeoples HospitalCholesterol in VLDL [Mass/Vol]Cholesterol in VLDL [Mass/volume] in Serum or Plasma by calculationPeoples HospitalColor Auto (U)Ordered By: Ayanna Vicente on 60-03-8870Svjww (U)YellowYelMarymount HospitalColor (U)Color of Urine by AutoYelMarymount Hospital Creatinine [Mass/volume] in Serum or PlasmaOrdered By: Ayanna Vicente on 61-14-4504Uxirbvweih [Mass/Vol]1.08 mg/dL0.60-1.20Peoples HospitalCreatinine [Mass/Vol]Creatinine [Mass/volume] in Serum or Plasma0.60-1.20 [facility] HospitalCreatinine [Mass/volume] in UrineOrdered By: Ayanna Vicente on 39-65-7223Rpiecxzznh (U) [Mass/Vol]93.00 mg/dLPeoples HospitalComment on above:No reference range establishedCreatinine (U) [Mass/Vol]Creatinine [Mass/volume] in UrinePeoples Hospital Comment on above:No reference range establishedEpithelial cells.squamous [#/area] in Urine sediment by Microscopy high power fieldOrdered By: Ayanna Vicente on 98-61-4986Jfvdysxxaf cells.squamous LM.HPF (Urine sed) [#/Area]3-4 [HPF]High0-2FThe Jewish HospitalEpithelial cells.squamous LM.HPF (Urine sed) [#/Area]Epithelial cells.squamous [#/area] in Urine sediment by Microscopy high power fieldHigh0-2FThe Jewish HospitalErythrocytes [#/area] in Urine sediment by Microscopy high power fieldOrdered By: Ayanna Vicente on 52-94-3586GGT LM.HPF (Urine sed) [#/Area]0-1 [HPF]0-4FThe Jewish HospitalRBC LM.HPF (Urine sed) [#/Area]Erythrocytes [#/area] in Urine sediment by Microscopy high power field0-4FThe Jewish HospitalGlobulin Calc (S) [Mass/Vol]Ordered By: Ayanna Vicente on 07-71-3435Pngqmpjj (S) [Mass/Vol]2.7 g/dLPeoples HospitalGlobulin (S) [Mass/Vol] Serum globulin measurement by calculation (mass/volume)Peoples HospitalGlucose [Mass/volume] in Serum or PlasmaOrdered By: Ayanna Vicente on 27-27-9803Uixaatf [Mass/Vol]129 mg/rWAeyo84-745GtienpwujPeoples HospitalComment on above:ADA recommended reference rangeRandom Glucose Reference Range is dependent on time and content of last meal. Glucose of more than 200 mg/dL in a nonstressed, ambulatory subject supports the diagnosisof Diabetes Mellitus.Glucose [Mass/Vol]Glucose [Mass/volume] in Serum or HdorbzWvol99-755 Pe[facility] HospitalComment on above:ADA recommended reference rangeRandom Glucose Reference Range is dependent on time and content of last meal. Glucose of more than 200 mg/dL in a nonstressed, ambulatory subject supports the diagnosisof Diabetes Mellitus.Glucose [Mass/volume] in Urine by Test stripOrdered By: Ayanna Vicente on 59-96-8667Vnnvpji Test strip (U) [Mass/Vol]Normal mg/dLNoOur Lady of Mercy Hospital - AndersonGlucose Test strip (U) [Mass/Vol]Glucose [Mass/volume] in Urine by Test stripNoOur Lady of Mercy Hospital - AndersonGlucose mean value [Mass/volume] in Blood Estimated from glycated hemoglobinOrdered By: Ayanna Vicente on 91-77-9198Fmefcup glucose Estimated from glycated hemoglobin (Bld) [Mass/Vol]194 mg/dLPeoples HospitalHemoglobin A1c percentageOrdered By: Ayanna Vicente on 05-06-2024 HbA1c (Bld) [Mass fraction]8.4 %High4.3-5.6FThe Jewish Hospital Comment on above:Increased risk for diabetes: 5.7 - 6.4diabetes: >6.4glycemic control for adults with diabetes: <7.0Hemoglobin A1c/Hemoglobin.total in BloodOrdered By: Ayanna Vicente on 22-89-7537EyE3l (Bld) [Mass fraction]Hemoglobin A1c percentageHigh4.3-5.6FThe Jewish HospitalComment on above: Increased risk for diabetes: 5.7 - 6.4diabetes: >6.4glycemic control for adults with diabetes: <7.0Hemoglobin Test strip Ql (U)Ordered By: Ayanna Vicente on 38-76-7405Yujlgasnpa Ql (U)NegativeNegMadison Health Hemoglobin Ql (U)Hemoglobin [Presence] in Urine by Test stripNegMadison HealthHyaline casts LM.LPF (Urine sed) [#/Area]Ordered By: Ayanna Vicente on 61-65-5034Byxewom casts (Urine sed) [#/Area]5-9 [LPF]High0-1 Peoples HospitalHyaline casts (Urine sed) [#/Area]Hyaline casts [#/area] in Urine sediment by Microscopy low power fieldHigh0-1FThe Jewish HospitalKetones Test strip Ql (U)Ordered By: Ayanna Vicente on 46-31-6114Pdzgqyn Ql (U)NegativeNegMadison HealthKetones Ql (U)Ketones [Presence] in Urine by Test stripNegMadison HealthLaboratory - Microbiology and Antimicrobial susceptibilityOrdered By: Ayanna Vicente on 16-91-5950Fezoqpko identified Cx Nom (U)Klebsiella variicola AbnormalPeoples HospitalBacteria identified Cx Nom (U) Klebsiella variicolaAbnormalPeoples HospitalLeukocyte esterase [Presence] in Urine by Test stripOrdered By: Ayanna Vicente on 95-80-5193Tzmqmfvxw esterase Test strip Ql (U)2+HighNegMadison Health Leukocyte esterase Test strip Ql (U)Leukocyte esterase [Presence] in Urine by Test stripHighNegMadison HealthLeukocytes [#/area] in Urine sediment by Microscopy high power fieldOrdered By: Ayanna Vicente on 69-46-8249XNY LM.HPF (Urine sed) [#/Area]10- [HPF]High0-4FThe Jewish HospitalWBC LM.HPF (Urine sed) [#/Area]Leukocytes [#/area] in Urine sediment by Microscopy high power fieldHigh0-4FThe Jewish Hospital Microalbumin [Mass/volume] in UrineOrdered By: Ayanna Vicente on 75-70-1110Setuklo DL <= 20 mg/L (U) [Mass/Vol]1.6 mg/dL0.0-1.8[facility] Albumin DL <= 20 mg/L (U) [Mass/Vol]Microalbumin [Mass/volume] in Urine0.0-1.8 Pe[facility] HospitalNitrite Test strip Ql (U)Ordered By: Ayanna Vicente on 19-62-2543Mloliph Ql (U)NegativeNegativePeoples HospitalNitrite Ql (U)Nitrite [Presence] in Urine by Test stripNegMadison HealthNo Panel InformationOrdered By: Ayanna Vicente on 07-32-0591Ohaqrdbfg GFR (CKD-EPI)51.605 mL/MinPeoples Hospital Pharmacy Creatinine Clearance (ChemN/AFThe Jewish HospitalPotassium [Moles/volume] in Serum or PlasmaOrdered By: Ayanna Vicente on 05-06-2024 Potassium [Moles/Vol]5.1 mmol/L3.5-5.1FThe Jewish HospitalPotassium [Moles/Vol]Potassium [Moles/volume] in Serum or Plasma3.5-5.1FThe Jewish HospitalProtein Test strip (U) [Mass/Vol]Ordered By: Ayanna Vicente on 88-20-7476Tiaiejj (U) [Mass/Vol]Trace mg/dLHighNegMadison HealthProtein (U) [Mass/Vol]Protein [Mass/volume] in Urine by Test strip HighNegMadison HealthProtein [Mass/volume] in Serum or PlasmaOrdered By: Ayanna Vicente on 76-50-4220Ftckjbq [Mass/Vol]6.8 g/dL6.4-8.9 [facility] HospitalProtein [Mass/Vol]Protein [Mass/volume] in Serum or Plasma6.4-8.9Summa Healtherum or plasma albumin/globulin mass ratioOrdered By: Ayanna Vicente on 05-06-2024 Albumin/Globulin [Mass ratio]1.5 {ratio}[facility] Albumin/Globulin [Mass ratio]Serum or plasma albumin/globulin mass ratio Summa Healtherum or plasma anion gap determinationOrdered By: Ayanna Vicente on 72-37-6784Ecvji gap [Moles/Vol]10.9 mmol/L6.0-15.0Peoples HospitalAnion gap [Moles/Vol]Serum or plasma anion gap determination6.0-15.0Summa Healtherum or plasma high density lipoprotein (HDL) cholesterol measurementOrdered By: Ayanna Vicente on 39-50-9215Wcfqzsuaziv in HDL [Mass/Vol]41 mg/hM84-22QlfyrxztnPeoples HospitalComment on above:HDL CHOL ATP-III CLASSIFICATION Cardiovascular RiskHDL > or equal to 60 mg/dL LOWHDL < 40 mg/dL HIGHSerum or plasma total cholesterol/high density lipoprotein (HDL) cholesterol mass ratOrdered By: Ayanna Vicente on 17-84-5751Dswwibxghvw.total/Cholesterol in HDL [Mass ratio]3.3 {ratio}<5.0[facility] HospitalCholesterol.total/Cholesterol in HDL [Mass ratio]Serum or plasma total cholesterol/high density lipoprotein (HDL) cholesterol mass rat<5.0Summa Healthodium [Moles/volume] in Serum or PlasmaOrdered By: Ayanna Vicente on 06-27-3523Kcxyjn [Moles/Vol]141 mmol/U332-821KbsnwkqqySumma Healthodium [Moles/Vol]Sodium [Moles/volume] in Serum or Sazznr035-810VrjomidwePeoples Hospital Specific gravity Test strip (U) [Rel density]Ordered By: Ayanna Vicente on 21-25-8202Pqchzxtl gravity (U) [Rel density]1.0201.001-1.030Summa Healthpecific gravity (U) [Rel density]Specific gravity of Urine by Test strip1.001-1.030Peoples HospitalThyrotropin [Units/volume] in Serum or PlasmaOrdered By: Ayanna Vicente on 89-46-3838LLY Qn1.93 m[IU]/L 0.45-5.33Peoples HospitalTSH QnThyrotropin [Units/volume] in Serum or Plasma0.45-5.33[facility] HospitalThyroxine (T4) free [Mass/volume] in Serum or PlasmaOrdered By: Ayanna Vicente on 10-38-5786Zqom T4 [Mass/Vol]0.94 ng/dL0.61-1.12Pe[facility] HospitalFree T4 [Mass/Vol] Thyroxine (T4) free [Mass/volume] in Serum or Plasma0.61-1.12Pe[facility] HospitalTriglyceride [Mass/volume] in Serum or PlasmaOrdered By: Ayanna Vicente on 72-42-7717Gvrsxrbmtznt [Mass/Vol]235 mg/dLHigh0149Peoples HospitalComment on above:TRIG ATP III CLASSIFICATIONTRIG less than 150 mg/dL NormalTRIG 150-199 mg/dL Borderline highTRIG 200-500 mg/dL High TRIG greater than 500 mg/dL Very highStandard traceable to the Center for Disease Co nrtrol and Prevention (CDC) test method.Triglyceride [Mass/Vol]Triglyceride [Mass/volume] in Serum or PlasmaFairmont Regional Medical Center0149[facility] Comment on above:TRIG ATP III CLASSIFICATIONTRIG less than 150 mg/dL NormalTRIG 150-199 mg/dL Borderline highTRIG 200-500 mg/dL High TRIG greater than 500 mg/dL Very highStandard traceable to the Center for Disease Conrtrol and Prevention (CDC) test method.Triiodothyronine (T3) [Mass/volume] in Serum or PlasmaOrdered By: Ayanna Vicente on 18-90-0064Q3 [Mass/Vol]0.89 ng/mL0.87-1.78Peoples HospitalT3 [Mass/Vol]Triiodothyronine (T3) [Mass/volume] in Serum or Plasma0.87-1.78Pe[facility] HospitalUrea nitrogen [Mass/volume] in Serum or PlasmaOrdered By: Ayanna Vicente on 32-97-1354Hchn nitrogen [Mass/Vol]29 mg/dLHigh-Peoples HospitalUrea nitrogen [Mass/Vol]Urea nitrogen [Mass/volume] in Serum or PlasmaWorcester County Hospital-Peoples HospitalUrine appearanceOrdered By: Ayanna Vicente on 34-15-5799Cjprfbnapr (U)Clear ClearPeoples HospitalUrine cultureOrdered By: Ayanna Vicente on 53-43-8564Kjlgsvud identified Cx Nom (U)AbnormalPeoples HospitalUrine microalbumin/creatinine mass ratioOrdered By: Ayanna Vicente on 17-87-7539Apjclyx/Creatinine DL <= 20 mg/L (U) [Mass ratio]17.2 mg/g0.0-30.0 Peoples HospitalComment on above:30-300 mg/g indicates an increased risk for diabetic nephropathy. Greater than 300 mg/g is consistent with clinical nephropathy. (Am. J. Kidney Disease 1995, 25:107) Albumin/Creatinine DL <= 20 mg/L (U) [Mass ratio]Urine microalbumin/creatinine mass ratio0.0-30.0Peoples HospitalComment on above:30-300 mg/g indicates an increased risk for diabetic nephropathy. Greater than 300 mg/g is consistent with clinical nephropathy. (Am. J. Kidney Disease 1995, 25:107) Urobilinogen Test strip (U) [Mass/Vol]Ordered By: Ayanna Vicente on 05-06-2024 Urobilinogen (U) [Mass/Vol]Normal mg/dLNormalPeoples Hospital Urobilinogen (U) [Mass/Vol]Urobilinogen [Mass/volume] in Urine by Test strip NormalPeoples HospitalpH Test strip (U)Ordered By: Ayanna Vicente on 71-64-8820vP (U)5.5 [pH]5.0-9.0Peoples HospitalpH (U)pH of Urine by Test strip5.0-9.0Peoples HospitalAmbulatory Visit Summaryon [id number] Visit SummaryAmbulatory Visit Summary KATHY WASHBURN :1940 [...] (no labs) Where: [address] [place] [address] [phone] Medications What How Much When Why Instructions [...] work or social activities (more content not included)...[facility] Office/Clinic Noteon 67-62-9511Uihzuow Office/Clinic Note Urology Office/Clinic Note Chief Complaint [...] (N32.81: Overactive bladder) S/p Botox 100u 08/30/21. -[place] sxs only improved for a few weeks [...] Contact Information JAX BECKMAN, SUSAN Miller, URL [address] [place] [address] [phone] Additional Instructions: 6 mos (no labs) Patient [...] Cipro 500 mg Tab, (more content not included)...[facility] TrumbullComment on above:Result Comment: Electronically Signed By: SUSAN RANDOLPH PA-C\.br\Date and Time Signed: 02/23/2410:53 EDT\.br\Electronically Co- Signed By: Sarah Ospina\.br\Date and Time Co-Signed: 02/24/24 10:44 EDT\.br\Electronically Co-Signed By: Sarah Ospina\.br\Date and Time Co-Signed: 02/24/24 10:47 EDTLaboratory - Chemistry and Chemistry - challengeon 02-04-2024 Bilirubin Ql (U)NegativeNEGATIVEPeoples HospitalGlucose (U) [Mass/Vol]NegativeNEGATIVEPeoples HospitalKetones Ql (U) NegativeNEGUniversity Hospitals Portage Medical CenterpH (U)6.0 [pH]5.0-9.0Summa Healthpecific gravity (U) [Rel density]>=1.030Abnormal 1.005-1.025Peoples HospitalUrobilinogen Qn (U)0.2 {Jose'U}/dL0.2-1.0Pe[facility] HospitalLaboratory - Specimen informationon 03-88-8395Sbtqxkamzl (U)CLEARCLEARFThe Jewish HospitalColor (U)YELLOWYELLOWPeoples HospitalLaboratory - Urinalysison 94-22-2434Zbggtdjkh esterase Test strip Ql (U)TRACEAbnormalNEGATIVE [facility] HospitalMucus Ql (Urine sed)TRACEAbnormalNONE SEEN [facility] HospitalNitrite Ql (U)NegativeNEGATIVEPeoples HospitalProtein Ql (U)TRACE mg/dLNEG/TRACEPeoples HospitalNo Panel Informationon 89-77-7932Hekyrxyfzhsmy Test CommentSee commentPeoples HospitalComment on above:Specimen Source: UCC - Urine,Clean Catch - Urine CC - 200.100Urine BacteriaTRACE #/HPFAbnormalNONE SEEN Pe[facility] HospitalUrine Occult BloodNegativeNEGATIVEPeoples HospitalUrine Other CastsNONE SEEN #/LPFNONE [facility] EastUrine Other CrystalsNone Seen #/HPFNone [facility] HospitalUrine RBC0-2 #/HPF0-2FThe Jewish Hospital Urine Squamous Epithelial CellsRARE #/LPFNONE/RAREPeoples HospitalUrine WBC2-5 #/HPFAbnormalNONE [facility] EastUrine culture routineon 46-20-5717Vybxufvz identified Cx Nom (U)Peoples HospitalAlanine aminotransferase [Enzymatic activity/volume] in Serum or PlasmaOrdered By: Ayanna Vicente on 84-46-4544JVV [Catalytic activity/Vol]28 U/L -Peoples HospitalAlbumin [Mass/volume] in Serum or Plasma by Bromocresol green (BCG) dye binding methoOrdered By: Ayanna Vicente on 10-17-2023 Albumin BCG dye [Mass/Vol]4.1 g/dL3.5-5.7FThe Jewish Hospital Alkaline phosphatase [Enzymatic activity/volume] in Serum or PlasmaOrdered By: Ayanna Vicente on 01-54-5890ZPO [Catalytic activity/Vol]93 U/M70-589XtufbmyfyPeoples HospitalAnisocytosis LM Ql (Bld)Ordered By: Ayanna Vicente on 41-78-4017Qrcfnhyiuvmh Ql (Bld)SlightPeoples HospitalAspartate aminotransferase [Enzymatic activity/volume] in Serum or PlasmaOrdered By: Ayanna Vicente on 62-47-7137BLM [Catalytic activity/Vol]30 U/D80-84XynounuiyPeoples HospitalAutomated erythrocytes count in urine sediment (number/area) Ordered By: Ayanna Vicente on 19-72-1861MCJ Auto (Urine sed) [#/Area]1-2 [HPF]0-4 Peoples HospitalAutomated leukocytes count in urine sediment (number/area)Ordered By: Ayanna Vicente on 10-33-7738XOY Auto (Urine sed) [#/Area] 10-19 [HPF]High0-4FThe Jewish HospitalBasophils Auto (Bld) [#/Vol] Ordered By: Ayanna Vicente on 37-20-2226Daeestcmx (Bld) [#/Vol]N/[facility] HospitalBasophils/100 WBC Auto (Bld)Ordered By: Ayanna Vicente on 64-16-4871Tsdfvhepq/100 WBC (Bld)N/[facility]rene HospitalBilirubin Test strip Ql (U)Ordered By: Ayanna Vicente on 51-53-2825Jrogstyjo Ql (U)Negative NegativePeoples HospitalBilirubin.total [Mass/volume] in Serum or PlasmaOrdered By: Ayanna Vicente on 55-75-8712Tjroxohpl [Mass/Vol]0.4 mg/dL 0.3-1.0Peoples HospitalCalcium [Mass/volume] in Serum or Plasma Ordered By: Ayanna Vicente on 78-31-0697Vcyvkma [Mass/Vol]9.7 mg/dL8.6-10.3 Peoples HospitalCarbon dioxide, total [Moles/volume] in Serum or PlasmaOrdered By: Ayanna Vicente on 35-01-1859AH4 [Moles/Vol]30.9 mmol/L 21.0-31.0Peoples HospitalChloride [Moles/volume] in Serum or PlasmaOrdered By: Ayanna Vicente on 08-37-5082Qmrvasvy [Moles/Vol]105 mmol/L98-107 [facility] HospitalCholesterol [Mass/volume] in Serum or Plasma Ordered By: Ayanna Vicente on 66-41-1634Oghhokhkvqd [Mass/Vol]131 mg/aTVah295-151 [facility] HospitalComment on above:Chol less than 200 mg/dl low riskChol 201-239 mg/dl borderline riskChol 240 mg/dl and greater high risk Cholesterol in LDL Calc [Mass/Vol]Ordered By: Ayanna Vicente on 10-17-2023 Cholesterol in LDL [Mass/Vol]30 mg/dL0-100[facility] Comment on above:LDL ATP III CLASSIFICATIONLDL less than 100 mg/dL OptimalLDL 100-129 mg/dL Near or above rnojsexDKM270-822 mg/dL Borderline highLDL 160-189 mg/dL HighLDL greater than 189 mg/dL Very highCholesterol in VLDL Calc [Mass/Vol]Ordered By: Ayanna Vicente on 19-75-6821Gwgdznrkgfl in VLDL [Mass/Vol]60 mg/dLPeoples HospitalColor Auto (U)Ordered By: Ayanna Vicente on 88-05-3740Vfcxq (U)YellowYellowPeoples HospitalCreatinine [Mass/volume] in Serum or PlasmaOrdered By: Ayanna Vicente on 83-39-9023Rjpbbtxncv [Mass/Vol]1.15 mg/dL0.60-1.20Pe[facility] HospitalEosinophils Auto (Bld) [#/Vol]Ordered By: Ayanna Vicente on 73-26-2511Dtnafrgymcz (Bld) [#/Vol]N/A [facility] HospitalEosinophils/100 WBC Auto (Bld)Ordered By: Ayanna Vicente on 44-54-5154Fhccgetzhrl/100 WBC (Bld)N/AFThe Jewish HospitalEosinophils/100 WBC Manual cnt (Bld)Ordered By: Ayanna Vicente on 10-17-2023 Eosinophils/100 WBC (Bld)2 %1-3FThe Jewish HospitalErythrocyte distribution width Auto (RBC) [Ratio]Ordered By: Ayanna Vicente on 10-17-2023 Erythrocyte distribution width (RBC) [Ratio]15.2 %11.9-15.3FThe Jewish HospitalGlobulin Calc (S) [Mass/Vol]Ordered By: Ayanna Vicente on 10-17-2023 Globulin (S) [Mass/Vol]2.6 g/dLPeoples HospitalGlucose [Mass/volume] in Serum or PlasmaOrdered By: Ayanna Vicente on 63-33-6857Ckpvwze [Mass/Vol]162 mg/xMJimg14-100StngzgxvkPeoples HospitalComment on above: ADA recommended reference rangeRandom Glucose Reference Range is dependent on time and content of last meal. Glucose of more than 200 mg/dL in a nonstressed, ambulatory subject supports the diagnosisof Diabetes Mellitus.Glucose mean value [Mass/volume] in Blood Estimated from glycated hemoglobinOrdered By: Ayanna Vicente on 76-24-2302Hbjyiil glucose Estimated from glycated hemoglobin (Bld) [Mass/Vol]197 mg/dLPeoples HospitalHematocrit Auto (Bld) [Volume fraction]Ordered By: Ayanna Vicente on 19-63-8122Ommbpmjxzv (Bld) [Volume fraction]38.8 %34.0-46.4FThe Jewish HospitalHemoglobin A1c percentageOrdered By: Ayanna Vicente on 58-87-1409VxN8k (Bld) [Mass fraction]8.5 % High4.3-5.6FThe Jewish HospitalComment on above:Increased risk for diabetes: 5.7 - 6.4diabetes: >6.4glycemic control for adults with diabetes: &l t;7.0Hemoglobin [Mass/volume] in BloodOrdered By: Ayanna Vicente on 10-17-2023 Hemoglobin (Bld) [Mass/Vol]12.2 g/dL11.8-15.4FThe Jewish Hospital Ketones Auto test strip (U) [Mass/Vol]Ordered By: Ayanna Vicente on 10-17-2023 Ketones (U) [Mass/Vol]NegativeNegativePeoples Hospital Laboratory - UrinalysisOrdered By: Ayanna Vicente on 65-06-2530Vyppkzo casts LM Ql (Urine sed)None seen [LPF]0-8Peoples HospitalLeukocytes [#/volume] corrected for nucleated erythrocytes in Blood by Automated coun Ordered By: Ayanna Vicente on 16-69-8578DNF corrected for nucl RBC Auto (Bld) [#/Vol]15.9 10*3/uLHigh3.8-11.6FThe Jewish HospitalLymphocytes Auto (Bld) [#/Vol]Ordered By: Ayanna Vicente on 22-20-1298Sykepnelutp (Bld) [#/Vol]N/A [facility] HospitalLymphocytes/100 WBC Auto (Bld)Ordered By: Ayanna Vicente on 68-26-2185Kedcplhnzso/100 WBC (Bld)N/AFThe Jewish HospitalLymphocytes/100 WBC Manual cnt (Bld)Ordered By: Ayanna Vicente on 10-17-2023 Lymphocytes/100 WBC (Bld)51 %Efsg51-68NiaqrhrwrPeoples HospitalMCH Auto (RBC) [Entitic mass]Ordered By: Ayanna Vicente on 10-90-4759QKT (RBC) [Entitic mass]28.0 pg24.7-34.3FThe Jewish HospitalMCHC Auto (RBC) [Mass/Vol] Ordered By: Ayanna Vicente on 85-95-3981GEEA (RBC) [Mass/Vol]31.5 g/dLLow32.0-35.0 [facility] HospitalMCV Auto (RBC) [Entitic vol]Ordered By: Ayanna Vicenet on 08-03-3168JLF (RBC) [Entitic vol]89.0 pL97-004QsqrbjijvPeoples HospitalMicroalbumin [Mass/volume] in UrineOrdered By: Ayanna Vicente on 31-35-2581Ousblpl DL <= 20 mg/L (U) [Mass/Vol]1.9 mg/dLHigh0.0-1.8[facility] HospitalMicrocytes LM Ql (Bld)Ordered By: Ayanna Vicente on 01-51-7403Rnpidyqtcm Ql (Bld)SlightPeoples HospitalMonocytes Auto (Bld) [#/Vol]Ordered By: Ayanna Vicente on 57-60-0275Mzuxacgre (Bld) [#/Vol] N/[facility] HospitalMonocytes/100 WBC Auto (Bld)Ordered By: Ayanna Vicente on 01-27-6645Vxloknvzd/100 WBC (Bld)NHighland District HospitalMonocytes/100 WBC Manual cnt (Bld)Ordered By: Ayanna Vicente on 10-17-2023 Monocytes/100 WBC (Bld)8 %2-11Pe[facility] HospitalMyelocytes/100 WBC Manual cnt (Bld)Ordered By: Ayanna Vicente on 18-84-2945Pcfbzyerai/100 WBC (Bld)1 %High0-0Peoples HospitalNeutrophils Auto (Bld) [#/Vol] Ordered By: Ayanna Vicente on 88-81-6690Vayiwmzecti (Bld) [#/Vol]NHighland District HospitalNeutrophils/100 WBC Auto (Bld)Ordered By: Ayanna Vicente on 98-39-0211Ztjhznzaxyt/100 WBC (Bld)NHighland District HospitalNitrite Test strip Ql (U)Ordered By: Ayanna Vicente on 25-29-4613Dzwkkxr Ql (U)Positive HighNegativePeoples HospitalNo Panel InformationOrdered By: Ayanna Vicente on 47-88-9148Laadipbht GFR (CKD-EPI)47.859 mL/MinPeoples HospitalPharmacy Creatinine Clearance (ChemN/[facility]omerene HospitalNucleated erythrocytes [Presence] in Blood by Automated countOrdered By: Ayanna Vicente on 81-77-5064Huhznuoyw RBC Auto Ql (Bld)NHighland District HospitalPlatelet adequacy [Presence] in Blood by Light microscopyOrdered By: Ayanna Vicente on 23-02-6372Gczfkwmtf LM Ql (Bld)NormalNormalPeoples HospitalPlatelet mean volume Auto (Bld) [Entitic vol]Ordered By: Ayanna Vicente on 47-48-4552Szkoqvbx mean volume (Bld) [Entitic vol]9.2 fL6.3-10.7 [facility] HospitalPlatelet morphology finding [Identifier] in BloodOrdered By: Ayanna Vicente on 34-86-8402Ibqjrewl morphology finding Nom (Bld) NormalNormalPeoples HospitalPlatelets Auto (Bld) [#/Vol]Ordered By: Ayanna Vicente on 73-14-0814Vzzokfmdy (Bld) [#/Vol]231 10*3/fU157-862 [facility] HospitalPoikilocytosis [Presence] in Blood by Light microscopyOrdered By: Ayanna Vicente on 55-87-4519Bttxqmouamtong LM Ql (Bld)Slight Pe[facility] HospitalPotassium [Moles/volume] in Serum or Plasma Ordered By: Ayanna Vicente on 89-24-6784Tpgqlyyni [Moles/Vol]5.1 mmol/L3.5-5.1 [facility] HospitalProtein Auto test strip (U) [Mass/Vol]Ordered By: Ayanna Vicente on 38-67-4187Ulmconi (U) [Mass/Vol]Trace mg/dLHighNegative [facility] HospitalProtein [Mass/volume] in Serum or PlasmaOrdered By: Ayanna Vicente on 11-80-8573Uiroxlh [Mass/Vol]6.7 g/dL6.4-8.9Pe[facility] HospitalRBC Auto (Bld) [#/Vol]Ordered By: Ayanna Vicente on 67-67-6362RNJ (Bld) [#/Vol]4.36 10*6/uL3.60-5.00Peoples HospitalRBC morphologyOrdered By: Ayanna Vicente on 83-38-9362DII morphology finding Nom (Bld)N/AFSalem Regional Medical Centeregmented neutrophils/100 WBC Manual cnt (Bld)Ordered By: Ayanna Vicente on 83-84-8974Olptrjsay neutrophils/100 WBC (Bld)33 %Ozk32-60SljbhysftSumma Healtherum or plasma albumin/globulin mass ratioOrdered By: Ayanna Vicente on 10-17-2023 Albumin/Globulin [Mass ratio]1.6 {ratio}Summa Healtherum or plasma anion gap determinationOrdered By: Ayanna Vicente on 93-02-6143Ltqub gap [Moles/Vol]8.2 mmol/L6.0-15.0Summa Healtherum or plasma high density lipoprotein (HDL) cholesterol measurementOrdered By: Ayanna Vicente on 68-19-4961Vahbaqhtgvk in HDL [Mass/Vol]40 mg/wG40-68OvrurmcckPeoples HospitalComment on above:HDL CHOL ATP-III CLASSIFICATION Cardiovascular RiskHDL > or equal to 60 mg/dL LOWHDL < 40 mg/dL HIGHSerum or plasma total cholesterol/high density lipoprotein (HDL) cholesterol mass ratOrdered By: Ayanna Vicente on 38-80-0709Jwtsjjcavsx.total/Cholesterol in HDL [Mass ratio]3.3 {ratio}<5.0Summa Healthodium [Moles/volume] in Serum or PlasmaOrdered By: Ayanna Vicente on 97-32-5020Xisrdd [Moles/Vol]139 mmol/W833-671 [facility] Healthpecific gravity Auto test strip (U) [Rel density]Ordered By: Ayanna Vicente on 39-57-5863Nrogvsjf gravity (U) [Rel density] 1.0181.001-1.030[facility] Healthquamous epithelial cells detection in urine sediment by light microscopyOrdered By: Ayanna Vicente on 98-24-6904Mnkgxnympg cells.squamous LM Ql (Urine sed)0-1 [HPF]0-2FThe Jewish HospitalThyrotropin [Units/volume] in Serum or PlasmaOrdered By: Ayanna Vicente on 21-09-4376KLZ Qn1.46 m[IU]/L0.45-5.33[facility] HospitalThyroxine (T4) free [Mass/volume] in Serum or PlasmaOrdered By: Ayanna Vicente on 86-06-0760Njgb T4 [Mass/Vol]1.02 ng/dL0.61-1.12[facility] HospitalTriglyceride [Mass/volume] in Serum or PlasmaOrdered By: Ayanna Vicente on 00-03-8964Zjkrwiomkeeq [Mass/Vol]303 mg/dLHigh0-149[facility] HospitalComment on above:TRIG ATP III CLASSIFICATIONTRIG less than 150 mg/dL NormalTRIG 150-199 mg/dL Borderline highTRIG 200-500 mg/dL High TRIG greater than 500 mg/dL Very highStandard traceable to the Center for Disease Co nrtrol and Prevention (CDC) test method.Triiodothyronine (T3) Free [Mass/volume] in Serum or PlasmaOrdered By: Ayanna Vicente on 97-90-7776Koqx T3 [Mass/Vol]3.22 pg/mL2.50-3.90[facility] HospitalUrea nitrogen [Mass/volume] in Serum or PlasmaOrdered By: Ayanna Vicente on 68-78-5811Zymq nitrogen [Mass/Vol]30 mg/dLHigh7-25[facility] HospitalUrine bacteria detection by automated methodOrdered By: Ayanna Vicente on 71-68-2462Wqfqddyz Auto Ql (U)4+High None SeenPeoples HospitalUrine clarity by refractometry automatedOrdered By: Ayanna Vicente on 95-08-1972Wktkewv Refractometry automated (U)ClearCleMount St. Mary HospitalUrine culture routineOrdered By: Ayanna Vicente on 71-10-8826Gyqqmpiv identified Cx Nom (U)Escherichia coli (MDRO) AbnormalPeoples HospitalUrine glucose measurement by automated test strip (mass/volume)Ordered By: Ayanna Vicente on 81-24-2083Dmdwlmv Auto test strip (U) [Mass/Vol]Normal mg/dLNormOhioHealth Grady Memorial HospitalUrine hemoglobin detection by automated test stripOrdered By: Ayanna Vicente on 70-73-9137Ttaslvifry Auto test strip Ql (U)NegativeNegativePeoples HospitalUrine leukocyte esterase detection by automated test stripOrdered By: Ayanna Vicente on 51-79-7890Ykdqrybli esterase Auto test strip Ql (U)2+High NegativePeoples HospitalUrobilinogen Auto test strip (U) [Mass/Vol]Ordered By: Ayanna Vicente on 29-72-6746Ttqmtbjrlrgg (U) [Mass/Vol] Normal mg/dLNormOhioHealth Grady Memorial HospitalVariant lymphocytes/100 WBC Manual cnt (Bld)Ordered By: Ayanna Vicente on 48-98-6496Stpkjih lymphocytes/100 WBC (Bld)6 %0-12[facility] HospitalWBC Auto (Bld) [#/Vol]Ordered By: Ayanna Vicente on 48-81-0124QCV (Bld) [#/Vol]15.9 10*3/uLHigh3.8-11.6FThe Jewish HospitalpH Auto test strip (U)Ordered By: Ayanna Vicente on 23-55-7284uE (U)5.5 [pH]5.0-9.0[facility] HospitalAlanine aminotransferase [Enzymatic activity/volume] in Serum or PlasmaOrdered By: Ayanna Vicente on 97-21-3101UUV [Catalytic activity/Vol]25 U/L7-52[facility] HospitalAlbumin [Mass/volume] in Serum or Plasma by Bromocresol green (BCG) dye binding methoOrdered By: Ayanna Vicente on 35-09-7041Phdfttg BCG dye [Mass/Vol]4.2 g/dL3.5-5.7FThe Jewish HospitalAlkaline phosphatase [Enzymatic activity/volume] in Serum or PlasmaOrdered By: Ayanna Vicente on 18-05-9348MOL [Catalytic activity/Vol]95 U/W08-262XffkrarxkPeoples HospitalAnisocytosis LM Ql (Bld)Ordered By: Ayanna Vicente on 58-20-4709Bireaymbipxa Ql (Bld)SlightPeoples HospitalAspartate aminotransferase [Enzymatic activity/volume] in Serum or PlasmaOrdered By: Ayanna Vicente on 80-72-2335QGI [Catalytic activity/Vol]21 U/M48-86BzdctwpkePeoples HospitalBasophils Auto (Bld) [#/Vol]Ordered By: Ayanna Vicente on 04-09-2023 Basophils (Bld) [#/Vol]N/AFThe Jewish HospitalBasophils/100 WBC Auto (Bld)Ordered By: Ayanna Vicente on 46-60-1182Vpbumfpdj/100 WBC (Bld)N/A [facility] HospitalBilirubin.total [Mass/volume] in Serum or PlasmaOrdered By: Ayanna Vicente on 31-05-0084Jwliuguxr [Mass/Vol]0.4 mg/dL0.3-1.0 [facility] HospitalCalcium [Mass/volume] in Serum or PlasmaOrdered By: Ayanna Vicente on 24-97-6793Foxmkrx [Mass/Vol]9.9 mg/dL8.6-10.3FThe Jewish HospitalCarbon dioxide, total [Moles/volume] in Serum or Plasma Ordered By: Ayanna Vicente on 31-00-0548HK8 [Moles/Vol]31.5 mmol/L21.0-31.0 [facility] HospitalChloride [Moles/volume] in Serum or Plasma Ordered By: Ayanna Vicente on 82-54-1399Namfprrc [Moles/Vol]103 mmol/L98-107 [facility] HospitalCholesterol [Mass/volume] in Serum or Plasma Ordered By: Ayanna Vicente on 68-60-7619Fdegspscnin [Mass/Vol]139 mg/tT407-096 [facility] HospitalComment on above:Chol less than 200 mg/dl low riskChol 201-239 mg/dl borderline riskChol 240 mg/dl and greater high risk Cholesterol in LDL Calc [Mass/Vol]Ordered By: Ayanna Vicente on 04-09-2023 Cholesterol in LDL [Mass/Vol]27 mg/dL0-100[facility] Comment on above:LDL ATP III CLASSIFICATIONLDL less than 100 mg/dL OptimalLDL 100-129 mg/dL Near or above qlgdzaeJGS011-624 mg/dL Borderline highLDL 160-189 mg/dL HighLDL greater than 189 mg/dL Very highCholesterol in VLDL Calc [Mass/Vol]Ordered By: Ayanna Vicente on 14-03-4079Hjjqrggfrjj in VLDL [Mass/Vol]69 mg/dLPeoples HospitalCreatinine [Mass/volume] in Serum or PlasmaOrdered By: Ayanna Vicente on 29-18-2769Jnjscjkqka [Mass/Vol]1.06 mg/dL 0.60-1.20[facility] HospitalEosinophils Auto (Bld) [#/Vol]Ordered By: Ayanna Vicente on 74-86-5883Jiadwksptew (Bld) [#/Vol]N/[facility] HospitalEosinophils/100 WBC Auto (Bld)Ordered By: Ayanna Vicente on 13-46-4458Amkycvpekkp/100 WBC (Bld)N/[facility] Eosinophils/100 WBC Manual cnt (Bld)Ordered By: Ayanna Vicente on 04-09-2023 Eosinophils/100 WBC (Bld)5 %1-3FThe Jewish HospitalErythrocyte distribution width Auto (RBC) [Ratio]Ordered By: Ayanna Vicente on 04-09-2023 Erythrocyte distribution width (RBC) [Ratio]15.1 %11.9-15.3FThe Jewish HospitalGlobulin Calc (S) [Mass/Vol]Ordered By: Ayanna Vicente on 04-09-2023 Globulin (S) [Mass/Vol]2.4 g/dLPeoples HospitalGlucose [Mass/volume] in Serum or PlasmaOrdered By: Ayanna Vicente on 35-59-6268Rmwrhxg [Mass/Vol]154 mg/kG82-593OohecwcusPeoples HospitalComment on above:ADA recommended reference rangeRandom Glucose Reference Range is dependent on time and content of last meal. Glucose of more than 200 mg/dL in a nonstressed, ambulatory subject supports the diagnosisof Diabetes Mellitus.Glucose mean value [Mass/volume] in Blood Estimated from glycated hemoglobinOrdered By: Ayanna Vicente on 95-31-3638Kkmhtco glucose Estimated from glycated hemoglobin (Bld) [Mass/Vol]200 mg/dLPeoples HospitalHematocrit Auto (Bld) [Volume fraction]Ordered By: Ayanna Vicente on 54-98-7953Ojjnivcpkd (Bld) [Volume fraction]37.2 %34.0-46.4FThe Jewish HospitalHemoglobin A1c percentageOrdered By: Ayanna Vicente on 82-36-4530QfY4g (Bld) [Mass fraction]8.6 % 4.3-5.6FThe Jewish HospitalComment on above:Increased risk for diabetes: 5.7 - 6.4diabetes: >6.4glycemic control for adults with diabetes: &l t;7.0Hemoglobin [Mass/volume] in BloodOrdered By: Ayanna Vicente on 04-09-2023 Hemoglobin (Bld) [Mass/Vol]12.2 g/dL11.8-15.4FThe Jewish Hospital Leukocytes [#/volume] corrected for nucleated erythrocytes in Blood by Automated counOrdered By: Ayanna Vicente on 08-12-2257KEP corrected for nucl RBC Auto (Bld) [#/Vol]15.3 10*3/uL3.8-11.6FThe Jewish HospitalLymphocytes Auto (Bld) [#/Vol]Ordered By: Ayanna Vicente on 66-99-6754Strgqclxzaq (Bld) [#/Vol]N/A [facility] HospitalLymphocytes/100 WBC Auto (Bld)Ordered By: Ayanna Vicente on 44-85-5837Oeiiwwljgog/100 WBC (Bld)N/[facility] HospitalLymphocytes/100 WBC Manual cnt (Bld)Ordered By: Ayanna Vicente on 04-09-2023 Lymphocytes/100 WBC (Bld)59 %18-42Pe[facility] HospitalMCH Auto (RBC) [Entitic mass]Ordered By: Ayanna Vicente on 99-41-8319MVQ (RBC) [Entitic mass]29.1 pg24.7-34.3FThe Jewish HospitalMCHC Auto (RBC) [Mass/Vol] Ordered By: Ayanna Vicente on 38-31-7233DFXE (RBC) [Mass/Vol]32.9 g/dL32.0-35.0 [facility] HospitalMCV Auto (RBC) [Entitic vol]Ordered By: Ayanna Vicente on 31-12-5074GXM (RBC) [Entitic vol]88.5 xV11-885AbjaccisiPeoples HospitalMonocytes Auto (Bld) [#/Vol]Ordered By: Ayanna Vicente on 04-09-2023 Monocytes (Bld) [#/Vol]N/[facility] HospitalMonocytes/100 WBC Auto (Bld)Ordered By: Ayanna Vicente on 25-69-6863Ohpcryemb/100 WBC (Bld)N/A [facility] HospitalMonocytes/100 WBC Manual cnt (Bld)Ordered By: Ayanna Vicente on 05-43-8112Bkrbqhciq/100 WBC (Bld)7 %2-11[facility] HospitalMyelocytes/100 WBC Manual cnt (Bld)Ordered By: Ayanna Vicente on 49-77-1394Eyqpmteifj/100 WBC (Bld)1 %0-0[facility] Neutrophils Auto (Bld) [#/Vol]Ordered By: Ayanna Vicente on 60-44-0111Xbawlgfvmud (Bld) [#/Vol]N/[facility] HospitalNeutrophils/100 WBC Auto (Bld) Ordered By: Ayanna Vicente on 71-58-7524Cbivkypbbku/100 WBC (Bld)N/[facility] HospitalNo Panel InformationOrdered By: Ayanna Vicente on 72-20-9454Ulmwssprb GFR (CKD-EPI)53.106 mL/MinPeoples Hospital Pharmacy Creatinine Clearance (ChemN/[facility] HospitalNucleated erythrocytes [Presence] in Blood by Automated countOrdered By: Ayanna Vicente on 89-58-0674Pwxzjviye RBC Auto Ql (Bld)N/[facility] Ovalocyte detectionOrdered By: Ayanna Vicente on 59-53-2572Sxyqezqzpb LM Ql (Bld) SlightPeoples HospitalPlatelet adequacy [Presence] in Blood by Light microscopyOrdered By: Ayanna Vicente on 86-81-7243Mwqqtgcwj LM Ql (Bld) NormalNoOur Lady of Mercy Hospital - AndersonPlatelet mean volume Auto (Bld) [Entitic vol]Ordered By: Ayanna Vicente on 36-95-8554Drbmcqtt mean volume (Bld) [Entitic vol]9.5 fL6.3-10.7FThe Jewish HospitalPlatelet morphology finding [Identifier] in BloodOrdered By: Ayanna Vicente on 81-40-2932Ofulnobk morphology finding Nom (Bld)NormalUniversity Hospitals Lake [facility] Platelets Auto (Bld) [#/Vol]Ordered By: Ayanna Vicente on 27-23-7533Rcknbsrqv (Bld) [#/Vol]211 10*3/cX973-020IcqqccwffPeoples HospitalPotassium [Moles/volume] in Serum or PlasmaOrdered By: Ayanna Vicente on 78-15-1359Pmjmdyype [Moles/Vol]5.0 mmol/L3.5-5.1FThe Jewish HospitalProtein [Mass/volume] in Serum or PlasmaOrdered By: Ayanna Vicente on 97-31-7979Tctpfxb [Mass/Vol]6.6 g/dL6.4-8.9[facility] HospitalRBC Auto (Bld) [#/Vol] Ordered By: Ayanna Vicente on 41-12-5851DHE (Bld) [#/Vol]4.20 10*6/uL3.60-5.00 [facility] HospitalRBC morphologyOrdered By: Ayanna Vicente on 56-75-2162FKI morphology finding Nom (Bld)N/AFThe Jewish Hospital Segmented neutrophils/100 WBC Manual cnt (Bld)Ordered By: Ayanna Vicente on 48-82-0586Zetxlshrs neutrophils/100 WBC (Bld)27 %50-70[facility] Healtherum or plasma albumin/globulin mass ratioOrdered By: Ayanna Vicente on 31-91-4415Zznvgkc/Globulin [Mass ratio]1.8 {ratio}[facility] Healtherum or plasma anion gap determinationOrdered By: Ayanna Vicente on 60-28-5175Fxkcn gap [Moles/Vol]10.5 mmol/L6.0-15.0[facility] Healtherum or plasma high density lipoprotein (HDL) cholesterol measurement Ordered By: Ayanna Vicente on 50-73-4369Cytpxunqezv in HDL [Mass/Vol]42 mg/dL23-92 [facility] HospitalComment on above:HDL CHOL ATP-III CLASSIFICATION Cardiovascular RiskHDL > or equal to 60 mg/dL LOWHDL < 40 mg/dL HIGHSerum or plasma total cholesterol/high density lipoprotein (HDL) cholesterol mass ratOrdered By: Ayanna Vicente on 00-93-3723Zevtebkthnd.total/Cholesterol in HDL [Mass ratio]3.3 {ratio}<5.0[facility] Healthodium [Moles/volume] in Serum or PlasmaOrdered By: Ayanna Vicente on 95-19-7674Fojcuk [Moles/Vol]140 mmol/W488-997SqzzpscdzPeoples HospitalThyrotropin [Units/volume] in Serum or PlasmaOrdered By: Ayanna Vicente on 17-76-0625WXG Qn 1.62 m[IU]/L0.45-5.33[facility] HospitalThyroxine (T4) free [Mass/volume] in Serum or PlasmaOrdered By: Ayanna Vicente on 33-66-2693Cabk T4 [Mass/Vol]0.78 ng/dL0.61-1.12[facility] HospitalTriglyceride [Mass/volume] in Serum or PlasmaOrdered By: Ayanna Vicente on 04-09-2023 Triglyceride [Mass/Vol]349 mg/dL0-149[facility] HospitalComment on above:TRIG ATP III CLASSIFICATIONTRIG less than 150 mg/dL NormalTRIG 150-199 mg/dL Borderline highTRIG 200-500 mg/dL High TRIG greater than 500 mg/dL Very highStandard traceable to the Center for Disease Conrtrol and Prevention (CDC) test method.Triiodothyronine (T3) Free [Mass/volume] in Serum or PlasmaOrdered By: Ayanna Vicente on 46-57-6710Roza T3 [Mass/Vol]2.71 pg/mL2.50-3.90[facility] HospitalUrea nitrogen [Mass/volume] in Serum or PlasmaOrdered By: Ayanna Vicente on 77-30-3290Betq nitrogen [Mass/Vol]28 mg/dL7-[facility] HospitalVariant lymphocytes/100 WBC Manual cnt (Bld)Ordered By: Ayanna Vicente on 78-68-5515Yceilfe lymphocytes/100 WBC (Bld)1 %0-12[facility] HospitalWBC Auto (Bld) [#/Vol]Ordered By: Ayanna Vicente on 24-37-4702HEY (Bld) [#/Vol]15.3 10*3/uL3.8-11.6FThe Jewish Hospital Alanine aminotransferase [Enzymatic activity/volume] in Serum or PlasmaOrdered By: Ayanna Vicente on 96-33-1208NWQ [Catalytic activity/Vol]25 U/L7-52[facility] HospitalAlbumin [Mass/volume] in Serum or Plasma by Bromocresol green (BCG) dye binding methoOrdered By: Ayanna Vicente on 41-62-2912Ausodyr BCG dye [Mass/Vol]4.3 g/dL3.5-5.7FThe Jewish HospitalAlkaline phosphatase [Enzymatic activity/volume] in Serum or PlasmaOrdered By: Ayanna Vicente on 44-82-8206DFS [Catalytic activity/Vol]97 U/R65-793SxwalpckbPeoples HospitalAnisocytosis LM Ql (Bld)Ordered By: Ayanna Vicente on 09-30-2022 Anisocytosis Ql (Bld)SlightPeoples HospitalAspartate aminotransferase [Enzymatic activity/volume] in Serum or PlasmaOrdered By: Ayanna Vicente on 08-88-2596HLE [Catalytic activity/Vol]22 U/U86-26DjzzzknyyPeoples HospitalBasophils Auto (Bld) [#/Vol]Ordered By: Ayanna Vicente on 09-30-2022 Basophils (Bld) [#/Vol]0.0 10*3/uL0.0-0.2FThe Jewish Hospital Basophils/100 WBC Auto (Bld)Ordered By: Ayanna Vicente on 51-80-5658Gtjqijfxt/100 WBC (Bld)0.3 %.[facility] HospitalBilirubin.total [Mass/volume] in Serum or PlasmaOrdered By: Ayanna Vicente on 35-72-5079Xhdwntjam [Mass/Vol]0.3 mg/dL0.3-1.0[facility] HospitalCalcium [Mass/volume] in Serum or PlasmaOrdered By: Ayanna Vicente on 59-69-0820Hznxqpb [Mass/Vol]9.3 mg/dL8.6-10.3 [facility] HospitalCarbon dioxide, total [Moles/volume] in Serum or PlasmaOrdered By: Ayanna Vicente on 73-88-8136SH7 [Moles/Vol]30.4 mmol/L 21.0-31.0[facility] HospitalChloride [Moles/volume] in Serum or PlasmaOrdered By: Ayanna Vicente on 84-08-3477Apgyybzp [Moles/Vol]104 mmol/L98-107 [facility] HospitalCholesterol [Mass/volume] in Serum or Plasma Ordered By: Ayanna Vicente on 95-60-4242Rtnrhxwljpz [Mass/Vol]117 mg/sI983-045 [facility] HospitalComment on above:Chol less than 200 mg/dl low riskChol 201-239 mg/dl borderline riskChol 240 mg/dl and greater high risk Cholesterol in LDL Calc [Mass/Vol]Ordered By: Ayanna Vicente on 09-30-2022 Cholesterol in LDL [Mass/Vol]35 mg/dL0-100[facility] Comment on above:LDL ATP III CLASSIFICATIONLDL less than 100 mg/dL OptimalLDL 100-129 mg/dL Near or above negdbuzNGX529-745 mg/dL Borderline highLDL 160-189 mg/dL HighLDL greater than 189 mg/dL Very highCholesterol in VLDL Calc [Mass/Vol]Ordered By: Ayanna Vicente on 14-48-6503Naovfsxaenn in VLDL [Mass/Vol]43 mg/dLPeoples HospitalCreatinine [Mass/volume] in Serum or PlasmaOrdered By: Ayanna Vicente on 58-07-6403Phqtsuumfi [Mass/Vol]1.25 mg/dL 0.60-1.20[facility] HospitalEosinophils Auto (Bld) [#/Vol]Ordered By: Ayanna Vicente on 20-58-3293Jiwvfarhizh (Bld) [#/Vol]0.3 10*3/uL0.0-0.45 [facility] HospitalEosinophils/100 WBC Auto (Bld)Ordered By: Ayanna Vicente on 47-78-7221Ikmlmbbdbei/100 WBC (Bld)2.3 %.[facility] HospitalErythrocyte distribution width Auto (RBC) [Ratio]Ordered By: Ayanna Vicente on 60-22-3320Zlpvbiufmhu distribution width (RBC) [Ratio]15.4 %11.9-15.3 [facility] HospitalGlobulin Calc (S) [Mass/Vol]Ordered By: Ayanna Vicente on 33-97-6389Semwujbz (S) [Mass/Vol]2.4 g/dLPeoples HospitalGlucose [Mass/volume] in Serum or PlasmaOrdered By: Ayanna Vicente on 20-77-5014Kuvsmam [Mass/Vol]135 mg/eR01-029UydpvkkqiPeoples Hospital Comment on above:ADA recommended reference rangeRandom Glucose Reference Range is dependent on time and content of last meal. Glucose of more than 200 mg/dL in a nonstressed, ambulatory subject supports the diagnosisof Diabetes Mellitus. Glucose mean value [Mass/volume] in Blood Estimated from glycated hemoglobin Ordered By: Ayanna Vicente on 51-41-5925Ygkjquq glucose Estimated from glycated hemoglobin (Bld) [Mass/Vol]203 mg/dLPeoples HospitalHematocrit Auto (Bld) [Volume fraction]Ordered By: Ayanna Vicente on 86-37-9648Qsqphovavi (Bld) [Volume fraction]37.0 %34.0-46.4FThe [facility] Hospital Hemoglobin A1c percentageOrdered By: Ayanna Vicente on 29-30-7510PzE8w (Bld) [Mass fraction]8.7 %4.3-5.6FThe Jewish HospitalComment on above: Increased risk for diabetes: 5.7 - 6.4diabetes: >6.4glycemic control for adults with diabetes: <7.0Hemoglobin [Mass/volume] in BloodOrdered By: Ayanna Vicente on 35-84-4141Dtsrkobhdl (Bld) [Mass/Vol]12.1 g/dL11.8-15.4FThe Jewish HospitalLaboratory - Chemistry and Chemistry - challengeOrdered By: Ayanna Vicente on 73-68-7339GGV/1.73 sq M.predicted MDRD (S/P/Bld) [Vol rate/Area]43.572 mL/min/{1.73_m2}[facility] HospitalLeukocytes [#/volume] corrected for nucleated erythrocytes in Blood by Automated counOrdered By: Ayanan Vicente on 49-46-3850FCS corrected for nucl RBC Auto (Bld) [#/Vol]15.2 10*3/uL3.8-11.6 [facility] HospitalLymphocytes Auto (Bld) [#/Vol]Ordered By: Ayanna Vicente on 70-89-8139Xkbazwqwnpi (Bld) [#/Vol]10.5 10*3/uL1.00-4.8[facility] HospitalLymphocytes/100 WBC Auto (Bld)Ordered By: Ayanna Vicente on 63-07-4540Iczhkorsqwo/100 WBC (Bld)69.4 %.[facility] HospitalMCH Auto (RBC) [Entitic mass]Ordered By: Ayanna Vicente on 95-19-6044TCM (RBC) [Entitic mass]28.4 pg24.7-34.3FThe Jewish HospitalMCHC Auto (RBC) [Mass/Vol]Ordered By: Ayanna Vicente on 88-48-5815JKXK (RBC) [Mass/Vol]32.7 g/dL 32.0-35.0[facility] HospitalMCV Auto (RBC) [Entitic vol]Ordered By: Ayanna Vicente on 22-08-8990DKK (RBC) [Entitic vol]86.9 kU80-411VuosjsgyqPeoples HospitalMicroalbumin [Mass/volume] in UrineOrdered By: Ayanna Vicente on 55-68-5141Sljtyqy DL <= 20 mg/L (U) [Mass/Vol]1.9 mg/dL0.0-1.8 [facility] HospitalMonocytes Auto (Bld) [#/Vol]Ordered By: Ayanna Vicente on 55-65-4504Vjuzmkvla (Bld) [#/Vol]0.7 10*3/uL0.0-0.8[facility] HospitalMonocytes/100 WBC Auto (Bld)Ordered By: Ayanna Vicente on 09-30-2022 Monocytes/100 WBC (Bld)4.5 %.[facility] HospitalNeutrophils Auto (Bld) [#/Vol]Ordered By: Ayanna Vicente on 64-72-6071Koovyaptgai (Bld) [#/Vol]3.6 10*3/uL1.8-7.7FThe Jewish HospitalNeutrophils/100 WBC Auto (Bld) Ordered By: Ayanna Vicente on 39-68-2666Mtdwvlydngs/100 WBC (Bld)23.5 %.[facility] HospitalNo Panel InformationOrdered By: Ayanna Vicente on 46-50-2978Rzcxesms Creatinine Clearance (ChemN/AFThe Jewish HospitalNucleated erythrocytes [Presence] in Blood by Automated countOrdered By: Ayanna Vicente on 22-79-5850Eeigiqucw RBC Auto Ql (Bld)0.6 /100{WBC}0-0.5FThe Jewish HospitalOvalocyte detectionOrdered By: Ayanna Vicente on 33-63-2538Gefnaniyfb LM Ql (Bld)SlightPeoples HospitalPlatelet adequacy [Presence] in Blood by Light microscopyOrdered By: Ayanna Vicente on 68-90-1973Xkogaybzu LM Ql (Bld)NormalNormalPeoples Hospital Platelet mean volume Auto (Bld) [Entitic vol]Ordered By: Ayanna Vicente on 55-85-1663Mxjaeovk mean volume (Bld) [Entitic vol]8.9 fL6.3-10.7FThe Jewish HospitalPlatelet morphology finding [Identifier] in BloodOrdered By: Ayanna Vicente on 08-04-0136Yacyxqap morphology finding Nom (Bld)NormalNormal [facility] HospitalPlatelets Auto (Bld) [#/Vol]Ordered By: Ayanna Vicente on 85-15-5023Jsajkozzb (Bld) [#/Vol]230 10*3/lI347-692FoavyqzqiPeoples HospitalPoikilocytosis [Presence] in Blood by Light microscopyOrdered By: Ayanna Vicente on 95-70-3615Gjdsliajvqxpqy LM Ql (Bld)SlightPeoples HospitalPotassium [Moles/volume] in Serum or PlasmaOrdered By: Ayanna Vicente on 77-20-6331Ogpvabkul [Moles/Vol]4.5 mmol/L3.5-5.1FThe Jewish HospitalProtein [Mass/volume] in Serum or PlasmaOrdered By: Ayanna Vicente on 14-52-1579Igyinoe [Mass/Vol]6.7 g/dL6.4-8.9[facility] RBC Auto (Bld) [#/Vol]Ordered By: Ayanna Vicente on 30-00-3061RLC (Bld) [#/Vol] 4.26 10*6/uL3.60-5.00Peoples HospitalRBC morphologyOrdered By: Ayanna Vicente on 02-78-5789QXS morphology finding Nom (Bld)N/AFSalem Regional Medical Centererum or plasma albumin/globulin mass ratioOrdered By: Ayanna Vicente on 36-55-0986Vdszzpb/Globulin [Mass ratio]1.8 {ratio}[facility] Healtherum or plasma anion gap determinationOrdered By: Ayanna Vicente on 05-09-8490Orqtd gap [Moles/Vol]12.1 mmol/L6.0-15.0[facility] Healtherum or plasma high density lipoprotein (HDL) cholesterol measurement Ordered By: Ayanna Vicente on 13-79-5521Lzxskfogfga in HDL [Mass/Vol]39 mg/dL35-85 [facility] HospitalComment on above:HDL CHOL ATP-III CLASSIFICATION Cardiovascular RiskHDL > or equal to 60 mg/dL LOWHDL < 40 mg/dL HIGHSerum or plasma total cholesterol/high density lipoprotein (HDL) cholesterol mass ratOrdered By: Ayanna Vicente on 31-98-7213Bklvvyyygrj.total/Cholesterol in HDL [Mass ratio]3.0 {ratio}<5.0Summa Healthodium [Moles/volume] in Serum or PlasmaOrdered By: Ayanna Vicente on 97-89-3204Tmacpy [Moles/Vol]142 mmol/R706-463FwuxwitnaPeoples HospitalThyrotropin [Units/volume] in Serum or PlasmaOrdered By: Ayanna Vicente on 35-35-9904XUX Qn 2.04 m[IU]/L0.45-5.33[facility] HospitalThyroxine (T4) free [Mass/volume] in Serum or PlasmaOrdered By: Ayanna Vicente on 06-49-6432Adgz T4 [Mass/Vol]0.86 ng/dL0.61-1.12[facility] HospitalTriglyceride [Mass/volume] in Serum or PlasmaOrdered By: Ayanna Vicente on 09-30-2022 Triglyceride [Mass/Vol]216 mg/dL0-149[facility] HospitalComment on above:TRIG ATP III CLASSIFICATIONTRIG less than 150 mg/dL NormalTRIG 150-199 mg/dL Borderline highTRIG 200-500 mg/dL High TRIG greater than 500 mg/dL Very highStandard traceable to the Center for Disease Conrtrol and Prevention (CDC) test method.Triiodothyronine (T3) Free [Mass/volume] in Serum or PlasmaOrdered By: Ayanna Vicente on 16-84-8762Dnbl T3 [Mass/Vol]3.13 pg/mL2.50-3.90[facility] HospitalUrea nitrogen [Mass/volume] in Serum or PlasmaOrdered By: Ayanna Vicente on 00-13-7843Xppu nitrogen [Mass/Vol]33 mg/dL7-25[facility] HospitalWBC Auto (Bld) [#/Vol]Ordered By: Ayanna Vicente on 14-10-2826JKQ (Bld) [#/Vol]15.2 10*3/uL3.8-11.6FThe Jewish Hospital No Panel InformationOrdered By: Ayanna Vicente on 74-28-477005713102-Fyrsbaf Vitamin D Total49.9 ng/fX92-648OivoqmkuaPeoples HospitalComment on above:VITAMIN D STATUS 25(OH)VITAMIN D RANGE (ng/mL) Deficient <20 Insufficient 20 to <20Rimwxlgoba36 to 100Reference: Nile MF,Joon NC, Chon ROD, et al. Evaluation,treatment, and prevention of vitamin D deficiency; an Endocrine Society clinical practice guideline. JCEM. 2010; 96(7):1911-30.LD LACTATE DEHYDROon 94-43-9845DIW [Catalytic activity/Vol]202 U/L135 - 214 U/LCleveland ClinicAlbumin [Mass/volume] in Serum or PlasmaOrdered By: Ayanna Vicente on 62-90-1433Igaehra [Mass/Vol]3.5 g/dL3.2-5.5FThe Jewish Hospital Basophils Auto (Bld) [#/Vol]Ordered By: Ayanna Vicente on 48-78-5074Octvdlbrm (Bld) [#/Vol]N/[facility] HospitalBasophils/100 WBC Auto (Bld) Ordered By: Ayanna Vicente on 55-61-2014Insdtzzjo/100 WBC (Bld)N/[facility] HospitalBlood anisocytosis detectionOrdered By: Ayanna Vicente on 97-78-0330Hpkhfcygyjpw Ql (Bld)SlightPeoples HospitalBlood hemoglobin measurement (mass/volume)Ordered By: Ayanna Vicente on 04-01-2022 Hemoglobin (Bld) [Mass/Vol]12.3 g/dL11.8-15.4FThe [facility] Hospital Blood leukocytes automated count (number/volume)Ordered By: Ayanna Vicente on 32-80-1202XEF (Bld) [#/Vol]12.0 10*3/uL4.5-11.0[facility] Cerebrospinal fluid unidentified cells/100 leukocytesOrdered By: Ayanna Vicente on 23-03-3421Ypudatgtcdlz cells/100 WBC (CSF)2 %0-0Peoples HospitalComment on above:PRO LYMPHOCYTECholesterol [Mass/volume] in Serum or PlasmaOrdered By: Ayanna Vicente on 32-34-3746Nfazivovdlq [Mass/Vol]102 mg/dL 140-200Peoples HospitalComment on above:Chol less than 200 mg/dl low risk Chol 201-239 mg/dl borderline risk Chol 240 mg/dl and greater high riskChol less than 200 mg/dl low riskChol 201- 239 mg/dl borderline riskChol 240 mg/dl and greater high riskCholesterol in LDL Calc [Mass/Vol]Ordered By: Ayanna Vicente on 28-72-5242Jzhphfvkxqg in LDL [Mass/Vol]27 mg/dL0-100Peoples HospitalComment on above:LDL ATP III CLASSIFICATION LDL less than 100 mg/dL Optimal LDL 100-129 mg/dL Near or above optimal LDL 130-159 mg/dL Borderline high LDL 160-189 mg/dL High LDL greater than 189 mg/dL Very highLDL ATP III CLASSIFICATIONLDL less than 100 mg/dL OptimalLDL 100-129 mg/dL Near or above fgherseVMV812-880 mg/dL Borderline highLDL 160-189 mg/dL HighLDL greater than 189 mg/dL Very highCholesterol in VLDL Calc [Mass/Vol]Ordered By: Ayanna Vicente on 41-26-3033Gligjirdnqy in VLDL [Mass/Vol]25 mg/dLPeoples HospitalCreatinine and Glomerular filtration rate.predicted panel (S/P/Bld)Ordered By: Ayanna Vicente on 04-01-2022 Creatinine [Mass/Vol]0.84 mg/dL0.44-1.03[facility] Eosinophils Auto (Bld) [#/Vol]Ordered By: Ayanna Vicente on 88-70-1225Tklyenrslfl (Bld) [#/Vol]N/[facility] HospitalEosinophils/100 WBC Auto (Bld) Ordered By: Ayanna Vicente on 75-70-6627Nqdjxrephnx/100 WBC (Bld)[facility] DaytonErythrocyte distribution width Auto (RBC) [Ratio]Ordered By: Ayanna Vicente on 94-51-9755Tbciqwglfvv distribution width (RBC) [Ratio]17.0 % 11.9-15.3FThe Jewish HospitalEstimated glomerular filtration rate (GFR) non- AmericanOrdered By: Ayanna Vicente on 66-05-7523KJK/1.73 sq M.predicted among non-blacks MDRD (S/P/Bld) [Vol rate/Area]> 60 mL/MinPeoples HospitalGlobulin Calc (S) [Mass/Vol]Ordered By: Ayanna Vicente on 80-65-8446Istwoznc (S) [Mass/Vol]2.9 g/dLPeoples Hospital Glucose mean value [Mass/volume] in Blood Estimated from glycated hemoglobin Ordered By: Ayanna Vicente on 98-40-1280Ifkytgr glucose Estimated from glycated hemoglobin (Bld) [Mass/Vol]255 mg/dLPeoples HospitalHematocrit Auto (Bld) [Volume fraction]Ordered By: Ayanna Vicente on 04-20-5312Nsgfqxcprq (Bld) [Volume fraction]37.9 %34.0-46.4FThe Jewish Hospital Hemoglobin A1c percentageOrdered By: Ayanna Vicente on 47-73-4739QyA4x (Bld) [Mass fraction]10.5 %4.3-5.6FThe Jewish HospitalComment on above: Increased risk for diabetes: 5.7 - 6.4 diabetes: >6.4 glycemic control for adults with diabetes: <7.0Increased risk for diabetes: 5.7 - 6.4diabetes: >6.4glycemic control for adults with diabetes: <7.0Laboratory - Hematology and Cell countsOrdered By: Ayanna Vicente on 83-10-3817Vwankqvnc RBC/100 WBC (Bld) [Ratio]0.2 %0-0.5FThe Jewish HospitalLymphocytes Auto (Bld) [#/Vol]Ordered By: Ayanna Vicente on 83-59-0471Dkkxzqddvuw (Bld) [#/Vol]N/[facility] HospitalLymphocytes/100 WBC Auto (Bld)Ordered By: Ayanan Vicente on 97-71-5182Munvsrtozok/100 WBC (Bld)N/[facility] HospitalLymphocytes/100 WBC (Bld)60 %18-42Pe[facility] HospitalLymphocytes/100 WBC Manual cnt (Bld)Ordered By: Ayanna Vicente on 04-01-2022 Lymphocytes/100 WBC (Bld)3 %0-12[facility]H Auto (RBC) [Entitic mass]Ordered By: Ayanna Vicente on 93-61-0647QLN (RBC) [Entitic mass]28.3 pg24.7-34.3FGood Samaritan HospitalHC Auto (RBC) [Mass/Vol]Ordered By: Ayanna Vicente on 00-09-8279XNWQ (RBC) [Mass/Vol]32.4 g/dL32.0-35.0Peoples HospitalMCV Auto (RBC) [Entitic vol]Ordered By: Ayanna Vicente on 53-72-0082FSQ (RBC) [Entitic vol]87.6 jC47-968EyigmirrsPeoples Hospital Manual blood monocytes/100 leukocytesOrdered By: Ayanna Vicente on 04-01-2022 Monocytes/100 WBC (Bld)3 %1-3FThe Jewish HospitalMonocytes Auto (Bld) [#/Vol]Ordered By: Ayanna Vicente on 42-01-0052Hjdzsoqpz (Bld) [#/Vol]N/A [facility] HospitalMonocytes/100 WBC Auto (Bld)Ordered By: Ayanna Vicente on 53-26-8040Rppeqppso/100 WBC (Bld)N/[facility] Neutrophils Auto (Bld) [#/Vol]Ordered By: Ayanna Vicente on 95-77-1149Qidcsrwrbnr (Bld) [#/Vol]N/[facility] HospitalNeutrophils/100 WBC Auto (Bld) Ordered By: Ayanna Vicente on 71-09-3559Kpdliezbsxb/100 WBC (Bld)N/[facility] HospitalNo Panel InformationOrdered By: Ayanna Vicente on 55-47-2012Efjlcmhps GFR ()> 60 mL/MinPeoples HospitalComment on above:GFR estimated reference range: According to KDOQI guidelines, <60 ml/min/1.73m2 is sufficient todiagnose a patient with chronic kidney disease.Pharmacy Creatinine Clearance (ChemN/[facility] HospitalPlatelet EstimateNormalNormOhioHealth Grady Memorial HospitalPlatelet Morphology CommentNormalNormGalion Hospitalmudge CellsFew [facility] HospitalPlatelet mean volume Auto (Bld) [Entitic vol] Ordered By: Ayanna Vicente on 22-86-9454Gyjopfzw mean volume (Bld) [Entitic vol] 9.3 fL6.3-10.7FThe Jewish HospitalPlatelets Auto (Bld) [#/Vol] Ordered By: Ayanna Vicente on 31-14-2977Kdfsrfuur (Bld) [#/Vol]224 10*3/vS125-576 [facility] HospitalProtein [Mass/volume] in Serum or PlasmaOrdered By: Ayanna Vicente on 92-01-2555Qgpykbo [Mass/Vol]6.4 g/dL6.1-7.9Peoples HospitalRBC Auto (Bld) [#/Vol]Ordered By: Ayanna Vicente on 32-51-1570ARU (Bld) [#/Vol]4.33 10*6/uL3.60-5.00Peoples HospitalRBC morphologyOrdered By: Ayanna Vicente on 53-31-9163RAU morphology finding Nom (Bld)N/AFSalem Regional Medical Centeregmented neutrophils/100 WBC Manual cnt (Bld)Ordered By: Ayanna Vicente on 31-57-4312Cnlloaouq neutrophils/100 WBC (Bld)29 %50-70Summa Healtherum or plasma alanine aminotransferase measurement without P-5'-P (enzymatic activiOrdered By: Ayanna Vicente on 10-36-5284SKC No additional P-5'-P [Catalytic activity/Vol]24 U/L10-60 [facility] Healtherum or plasma albumin/globulin mass ratio Ordered By: Ayanna Vicente on 07-85-0124Exzphgd/Globulin [Mass ratio]1.2 {ratio} [facility] Healtherum or plasma alkaline phosphatase measurement (enzymatic activity/volume)Ordered By: Ayanna Vicente on 03-59-0641FOV [Catalytic activity/Vol]75 U/Q81-29XlaxnizikSumma Healtherum or plasma anion gap determinationOrdered By: Ayanna Vicente on 15-35-7927Qjvsp gap [Moles/Vol]15.8 mmol/L6.0-15.0[facility]ma Healtherum or plasma aspartate aminotransferase measurement (enzymatic activity/volume)Ordered By: Ayanna Vicente on 52-61-3790WDC [Catalytic activity/Vol]26 U/V78-73RvmwjytuwSumma Healtherum or plasma calcium measurement (mass/volume)Ordered By: Ayanna Vicente on 57-79-3275Wfljfwo [Mass/Vol]9.3 mg/dL8.2-10.2FSalem Regional Medical Centererum or plasma chloride measurement (moles/volume) Ordered By: Ayanna Vicente on 06-83-7306Swktuluc [Moles/Vol]103 mmol/L95-114 [facility] Healtherum or plasma glucose measurement (mass/volume)Ordered By: Ayanna Vicente on 86-62-0744Ddhwvos [Mass/Vol]163 mg/dL 70-100Peoples HospitalComment on above:ADA recommended reference range Random [...] (HDL) cholesterol measurementOrdered By: Ayanna Vicente on 12-81-2853Wnywzcfzowf in HDL [Mass/Vol]50 mg/rI11-23KjykmxnqbPeoples HospitalComment on above:HDL CHOL ATP-III CLASSIFICATION Cardiovascular Risk HDL > or equal to 60 mg/dL LOW HDL < 40 mg/dL HIGHHDL CHOL ATP-III CLASSIFICATION Cardiovascular RiskHDL > or equal to 60 mg/dL LOWHDL < 40 mg/dL HIGHSerum or plasma potassium measurement (moles/volume)Ordered By: Ayanna Vicente on 73-29-4487Ijjhiwang [Moles/Vol]4.4 mmol/L3.5-5.1FSalem Regional Medical Centererum or plasma sodium measurement (moles/volume)Ordered By: Ayanna Vicente on 31-93-7916Kjcajc [Moles/Vol]141 mmol/O694-838BqredgczhSumma Healtherum or plasma total bilirubin measurement (mass/volume)Ordered By: Ayanna Vicente on 89-67-2663Wwnqinbkz [Mass/Vol]0.3 mg/dL0.3-1.2FSalem Regional Medical Centererum or plasma total carbon dioxide measurement (moles/volume)Ordered By: Ayanna Vicente on 04-01-2022 CO2 [Moles/Vol]26.6 mmol/L22.0-30.0Summa Healtherum or plasma total cholesterol/high density lipoprotein (HDL) cholesterol mass rat Ordered By: Ayanna Vicente on 24-11-0941Adtglpyuzwg.total/Cholesterol in HDL [Mass ratio]2.0 {ratio}<5.0Summa Healtherum or plasma urea nitrogen measurement (mass/volume)Ordered By: Ayanna Vicente on 24-88-2446Xzbt nitrogen [Mass/Vol]12 mg/dL9-23Pe[facility] HospitalTS DL <= 0.005 mIU/L QnOrdered By: Ayanna Vicente on 58-02-7031NRC Qn1.11 m[IU]/L0.45-5.33 [facility] HospitalThyroxine (T4) free [Mass/volume] in Serum or PlasmaOrdered By: Ayanna Vicente on 31-37-5152Mmif T4 [Mass/Vol]1.02 ng/dL 0.61-1.12[facility] HospitalTriglyceride [Mass/volume] in Serum or PlasmaOrdered By: Ayanna Vicente on 37-07-8134Dantlyzulxth [Mass/Vol]125 mg/dL 35-149Pe[facility] HospitalComment on above:TRIG ATP III CLASSIFICATION TRIG [...] Serum or PlasmaOrdered By: Ayanna Vicente on 84-66-3479Irgw T3 [Mass/Vol]2.81 pg/mL2.50-3.90[facility] HospitalGlucose Glucometer (BldC) [Mass/Vol]Ordered By: Galo Max on 59-43-2025Xdgrdjp [Mass/Vol]117 mg/dLPeoples Hospital Comment on above:Random Glucose Reference Range is dependent on time and content of last meal. Glucose of more than 200 mg/dL in a nonstressed, ambulatory subject supports the diagnosis of Diabetes Mellitus.Basophils Auto (Bld) [#/Vol] Ordered By: Ashley Ramos on 60-36-7724Eyekrbplc (Bld) [#/Vol]0.0 10*3/uL 0.0-0.2FThe Jewish HospitalBasophils/100 WBC Auto (Bld)Ordered By: Ashley Ramos on 44-83-6093Umiieqsmv/100 WBC (Bld)0.3 %.[facility] HospitalBlood hemoglobin measurement (mass/volume)Ordered By: Ashley Ramos on 04-25-1175Iwvssbismp (Bld) [Mass/Vol]11.0 g/dL11.8-15.4FThe Jewish HospitalBlood leukocytes automated count (number/volume)Ordered By: Ashley Ramos on 48-80-3467QYM (Bld) [#/Vol]9.5 10*3/uL4.5-11.0[facility] HospitalCreatinine and Glomerular filtration rate.predicted panel (S/P/Bld)Ordered By: Ashley Ramos on 95-00-4991Ttkaxokbhc [Mass/Vol]0.78 mg/dL0.44-1.03[facility] HospitalEosinophils Auto (Bld) [#/Vol] Ordered By: Ashley Ramos on 73-22-7182Krnoaezvuou (Bld) [#/Vol]0.3 10*3/uL 0.0-0.45[facility] HospitalEosinophils/100 WBC Auto (Bld)Ordered By: Ashley Ramos on 51-75-3761Pvwslxcdtjn/100 WBC (Bld)3.6 %.[facility] HospitalErythrocyte distribution width Auto (RBC) [Ratio]Ordered By: Ashley Ramos on 71-21-3830Pddfcrlrmcv distribution width (RBC) [Ratio] 15.4 %11.9-15.3FThe Jewish HospitalEstimated glomerular filtration rate (GFR) non- AmericanOrdered By: Ashley Ramos on 01-25-2022 GFR/1.73 sq M.predicted among non-blacks MDRD (S/P/Bld) [Vol rate/Area]> 60 mL/MinPeoples HospitalHematocrit Auto (Bld) [Volume fraction] Ordered By: Ashley Ramos on 92-10-3860Gkchxshwjj (Bld) [Volume fraction]33.2 %34.0-46.4FThe Jewish HospitalLaboratory - Hematology and Cell countsOrdered By: Ashley Ramos on 25-99-9745Kqmagdoil RBC/100 WBC (Bld) [Ratio]0.2 %0-0.5FThe Jewish HospitalLymphocytes Auto (Bld) [#/Vol] Ordered By: Ashley Ramos on 05-14-4358Idoxfvvvxgn (Bld) [#/Vol]6.4 10*3/uL 1.00-4.8[facility] HospitalLymphocytes/100 WBC Auto (Bld)Ordered By: Ashley Ramos on 49-57-0311Fczocgoqmhc/100 WBC (Bld)67.6 %.[facility] Auto (RBC) [Entitic mass]Ordered By: Ashley Ramos on 96-17-2586MYE (RBC) [Entitic mass]28.7 pg24.7-34.3FGood Samaritan HospitalHC Auto (RBC) [Mass/Vol]Ordered By: Ashley Ramos on 69-60-2550LQDJ (RBC) [Mass/Vol]33.3 g/dL32.0-35.0Pe[facility] HospitalMCV Auto (RBC) [Entitic vol]Ordered By: Ashley Ramos on 49-98-7589VOM (RBC) [Entitic vol]86.3 hH07-743BtrehchuaPeoples HospitalMonocytes Auto (Bld) [#/Vol] Ordered By: Ashley Ramos on 69-25-9852Czfadzmqk (Bld) [#/Vol]0.7 10*3/uL 0.0-0.8Pe[facility] HospitalMonocytes/100 WBC Auto (Bld)Ordered By: Ashley Ramos on 10-34-3920Vzgbevgxx/100 WBC (Bld)7.4 %.[facility]oples HospitalNeutrophils Auto (Bld) [#/Vol]Ordered By: Ashley Ramos on 43-05-8918Cxkjtuvhumw (Bld) [#/Vol]2.0 10*3/uL1.8-7.7FThe Jewish HospitalNeutrophils/100 WBC Auto (Bld)Ordered By: Ashley Ramos on 01-25-2022 Neutrophils/100 WBC (Bld)21.1 %.[facility] HospitalNo Panel InformationOrdered By: Ashley Ramos on 75-04-8505Fcttshgbp GFR ()> 60 mL/MinPeoples HospitalComment on above:GFR estimated reference range: According to KDOQI guidelines, <60 ml/min/1.73m2 is sufficient todiagnose a patient with chronic kidney disease.Pharmacy Creatinine Clearance (Chem76.46[facility] HospitalPlatelet EstimateNormal NormalPeoples HospitalPlatelet Morphology CommentNormalNormal Summa Healthmudge CellsFewPeoples HospitalPlatelet mean volume Auto (Bld) [Entitic vol]Ordered By: Ashley Ramos on 74-06-5035Eexkwsij mean volume (Bld) [Entitic vol]8.6 fL6.3-10.7FThe Jewish HospitalPlatelets Auto (Bld) [#/Vol]Ordered By: Ashley Ramos on 31-48-9424Aqyoiybfa (Bld) [#/Vol]240 10*3/sM468-922FkkdbtdopPeoples HospitalRBC Auto (Bld) [#/Vol]Ordered By: Ashley Ramos on 92-95-5574NVW (Bld) [#/Vol]3.84 10*6/uL3.60-5.00[facility] morphology Ordered By: Ashley Ramos on 60-44-9081RGT morphology finding Nom (Bld)Normal [facility] Healtherum or plasma calcium measurement (mass/volume)Ordered By: Ashley Ramos on 09-85-6970Iybzdec [Mass/Vol]8.7 mg/dL8.2-10.2FSalem Regional Medical Centererum or plasma chloride measurement (moles/volume)Ordered By: Ashley Ramos on 52-64-5590Waclwavj [Moles/Vol]101 mmol/H44-226OaswbnnfvSumma Healtherum or plasma glucose measurement (mass/volume)Ordered By: Ashley Ramos on 01-25-2022 Glucose [Mass/Vol]133 mg/jT29-945OouiealefPeoples HospitalComment on above:ADA recommended reference range Random [...] potassium measurement (moles/volume)Ordered By: Ashley Ramos on 42-12-1028Fvognxjlb [Moles/Vol]4.0 mmol/L3.5-5.1 [facility] Healtherum or plasma sodium measurement (moles/volume)Ordered By: Ashley Ramos on 36-01-6160Wzeakg [Moles/Vol]141 mmol/N259-288PbxhgmbdeSumma Healtherum or plasma total carbon dioxide measurement (moles/volume)Ordered By: Ashley Ramos on 92-76-9956GZ7 [Moles/Vol]30.7 mmol/L22.0-30.0[facility] Healtherum or plasma urea nitrogen measurement (mass/volume)Ordered By: Ashley Ramos on 89-04-3887Ubvq nitrogen [Mass/Vol]14 mg/dL9-23[facility] No Panel InformationOrdered By: Galo Max on 97-95-4070Ztppfme Glucose CommentGlu2: cleaned meterPeoples HospitalBacterial blood cultureOrdered By: Butch Redding on 50-66-8744Dtctsbcp identified Cx Nom (Bld)NO GROWTH 5 DAYSPeoples HospitalAlbumin [Mass/volume] in Serum or PlasmaOrdered By: Galo Max on 05-90-7739Rytroog [Mass/Vol]3.1 g/dL3.2-5.5 Pe[facility] HospitalBlood acanthocytes detection by light microscopyOrdered By: Galo Max on 69-30-4437Xtxkkhbftjrd LM Ql (Bld)Rare [facility] HospitalGlobulin Calc (S) [Mass/Vol]Ordered By: Galo Max on 16-37-7698Satznddp (S) [Mass/Vol]3.0 g/dLPeoples HospitalNo Panel InformationOrdered By: Galo Max on 77-76-4970JJS CommentSee commentPeoples HospitalComment on above:Slide referred to pathologist for reviewProtein [Mass/volume] in Serum or PlasmaOrdered By: Galo Max on 29-10-7252Fedklew [Mass/Vol]6.1 g/dL6.1-7.9[facility] Healtherum or plasma alanine aminotransferase measurement without P-5'-P (enzymatic activiOrdered By: Galo Max on 83-97-8384WTD No additional P-5'-P [Catalytic activity/Vol]24 U/N32-97PgyytomaiSumma Healtherum or plasma albumin/globulin mass ratioOrdered By: Galo Max on 01-16-2022 Albumin/Globulin [Mass ratio]1.0 {ratio}[facility] Healtherum or plasma alkaline phosphatase measurement (enzymatic activity/volume)Ordered By: Galo Max on 86-11-6661CGT [Catalytic activity/Vol]88 U/J80-77UztheugiqSumma Healtherum or plasma aspartate aminotransferase measurement (enzymatic activity/volume)Ordered By: Galo Max on 18-62-6006GVE [Catalytic activity/Vol]23 U/W07-01EdzvafsirSumma Healtherum or plasma prealbumin measurement (mass/volume)Ordered By: Galo Max on 01-16-2022 Prealbumin [Mass/Vol]22.1 mg/dL18.0-38.0Summa Healtherum or plasma total bilirubin measurement (mass/volume)Ordered By: Galo Max on 49-05-7144Hwxtahoeb [Mass/Vol]0.6 mg/dL0.3-1.2FThe Jewish Hospital Creatinine and Glomerular filtration rate.predicted panel (S/P/Bld)Ordered By: Bertram Garrison on 71-76-1919Vviypltwin [Mass/Vol]0.80 mg/dL0.44-1.03Pe[facility] HospitalComment on above:Delta: 1.35 on 01/14/22Estimated glomerular filtration rate (GFR) non- AmericanOrdered By: Bertram Garrison on 16-09-8343JIO/1.73 sq M.predicted among non-blacks MDRD (S/P/Bld) [Vol rate/Area]> 60 mL/MinPeoples HospitalGlucose Glucometer (BldC) [Mass/Vol]Ordered By: Bertram Garrison on 27-15-9973Gryejvc [Mass/Vol]226 mg/dL Pe[facility] HospitalComment on above:Random Glucose Reference Range is dependent on time and content of last meal. Glucose of more than 200 mg/dL in a nonstressed, ambulatory subject supports the diagnosis of Diabetes Mellitus.No Panel InformationOrdered By: Bertram Garrison on 08-22-5260Hxjovnz Glucose CommentGlu2: cleaned meterPeoples HospitalEstimated GFR ()> 60 mL/MinPeoples HospitalComment on above: GFR estimated reference range: According to KDOQI guidelines, <60 ml/min/1.73m2 is sufficient todiagnose a patient with chronic kidney disease.Pharmacy Creatinine Clearance (Chem75.85[facility] Healtherum or plasma calcium measurement (mass/volume)Ordered By: Bertram Garrison on 79-75-7466Opfqhjw [Mass/Vol]9.2 mg/dL8.2-10.2FSalem Regional Medical Centererum or plasma chloride measurement (moles/volume)Ordered By: Bertram Garrison on 01-15-2022 Chloride [Moles/Vol]99 mmol/Q61-625IkopaaxsgSumma Healtherum or plasma glucose measurement (mass/volume)Ordered By: Bertram Garrison on 01-15-2022 Glucose [Mass/Vol]293 mg/aG26-059LmtnegdkuPeoples HospitalComment on above:ADA recommended reference range Random Glucose Reference Range is dependent on time and content of last meal. Glucose of more than 200 mg/dL in a nonstressed, ambulatory subject supports the diagnosis of Diabetes Mellitus.Serum or plasma potassium measurement (moles/volume)Ordered By: Bertram Garrison on 16-73-1684Cygmwiwjt [Moles/Vol]4.3 mmol/L3.5-5.1FSalem Regional Medical Centererum or plasma sodium measurement (moles/volume)Ordered By: Bertram Garrison on 19-36-7757Mhmmne [Moles/Vol]136 mmol/L013-525IofdldfghSumma Healtherum or plasma total carbon dioxide measurement (moles/volume)Ordered By: Bertram Garrison on 89-73-7368OZ2 [Moles/Vol]29.1 mmol/L22.0-30.0Summa Healtherum or plasma urea nitrogen measurement (mass/volume)Ordered By: Bertram Garrison on 01-15-2022 Urea nitrogen [Mass/Vol]23 mg/dL9-23Pe[facility] HospitalUrine culture routineOrdered By: Butch Redding on 79-31-1099Yehoonbc identified Cx Nom (U)Enterococcus faecalisPeoples HospitalBasophils Auto (Bld) [#/Vol]Ordered By: Bertram Garrison on 20-17-8512Wnazanvag (Bld) [#/Vol]0.1 10*3/uL 0.0-0.2FThe Jewish HospitalBasophils/100 WBC Auto (Bld)Ordered By: Bertram Garrison on 47-75-0836Vkxbhjcox/100 WBC (Bld)0.6 %.[facility] HospitalBlood acanthocytes detection by light microscopyOrdered By: Bertram Garrison on 78-91-4497Yznrksqkgkan LM Ql (Bld)FewPeoples HospitalBlood hemoglobin measurement (mass/volume)Ordered By: Bertram Garrison on 31-07-8469Lqjuhpuyaw (Bld) [Mass/Vol]11.7 g/dL11.8-15.4FThe Jewish HospitalBlood leukocytes automated count (number/volume)Ordered By: Bertram Garrison on 63-27-5875JDX (Bld) [#/Vol]11.5 10*3/uL4.5-11.0[facility] HospitalEosinophils Auto (Bld) [#/Vol]Ordered By: Bertram Garrison on 66-39-9390Qpehiqhsgbg (Bld) [#/Vol]0.4 10*3/uL0.0-0.45[facility] HospitalEosinophils/100 WBC Auto (Bld)Ordered By: Bertram Garrison on 01-14-2022 Eosinophils/100 WBC (Bld)3.3 %.[facility] HospitalErythrocyte distribution width Auto (RBC) [Ratio]Ordered By: Bertram Garrison on 01-14-2022 Erythrocyte distribution width (RBC) [Ratio]14.4 %11.9-15.3FThe Jewish HospitalHematocrit Auto (Bld) [Volume fraction]Ordered By: Bertram Garrison on 38-70-1959Ddfmecyksr (Bld) [Volume fraction]35.4 %34.0-46.4FThe Jewish HospitalLaboratory - Hematology and Cell countsOrdered By: Bertram Garrison on 09-68-4941Lxxjmpgup RBC/100 WBC (Bld) [Ratio]0.3 %0-0.5FThe Jewish HospitalLymphocytes Auto (Bld) [#/Vol]Ordered By: Bertram Garrison on 82-72-3749Dxzvxswaphp (Bld) [#/Vol]7.2 10*3/uL1.00-4.8Pe[facility] HospitalLymphocytes/100 WBC Auto (Bld)Ordered By: Bertram Garrison on 01-14-2022 Lymphocytes/100 WBC (Bld)62.9 %.[facility] Auto (RBC) [Entitic mass]Ordered By: Bertram Garrison on 93-99-2975YXE (RBC) [Entitic mass] 28.4 pg24.7-34.3FThe Jewish HospitalMCHC Auto (RBC) [Mass/Vol] Ordered By: Bertram Garrison on 25-24-8455EQME (RBC) [Mass/Vol]32.9 g/dL32.0-35.0 Pe[facility] HospitalMCV Auto (RBC) [Entitic vol]Ordered By: Bertram Garrison on 86-34-8724KEH (RBC) [Entitic vol]86.1 oP17-617EioxnhswqPeoples HospitalMonocytes Auto (Bld) [#/Vol]Ordered By: Bertram Garrison on 15-82-3446Jxdpsjxkm (Bld) [#/Vol]0.6 10*3/uL0.0-0.8Pe[facility] HospitalMonocytes/100 WBC Auto (Bld)Ordered By: Bertram Garrison on 01-14-2022 Monocytes/100 WBC (Bld)5.0 %.[facility]oples HospitalNeutrophils Auto (Bld) [#/Vol]Ordered By: Bertram Garrison on 44-83-0163Ccilnmrucmb (Bld) [#/Vol]3.2 10*3/uL1.8-7.7FThe Jewish HospitalNeutrophils/100 WBC Auto (Bld) Ordered By: Bertram Garrison on 78-35-2921Vvttfelxxtl/100 WBC (Bld)28.2 %.[facility] HospitalNo Panel InformationOrdered By: Bertram Garrison on 36-20-2477Nauenjof EstimateNormalNormOhioHealth Grady Memorial HospitalPlatelet Morphology CommentNormalNormOhioHealth Grady Memorial HospitalPlatelet mean volume Auto (Bld) [Entitic vol]Ordered By: Bertram Garrison on 47-69-7498Hemnvgfa mean volume (Bld) [Entitic vol]9.8 fL6.3-10.7FThe Jewish Hospital Platelets Auto (Bld) [#/Vol]Ordered By: Bertram Garrison on 62-97-5797Hgoxatrbq (Bld) [#/Vol]277 10*3/uS380-013InxlvhzfmPeoples HospitalRBC Auto (Bld) [#/Vol]Ordered By: Bertram Garrison on 20-59-7834PBD (Bld) [#/Vol]4.11 10*6/uL 3.60-5.00Peoples HospitalRBC morphologyOrdered By: Bertram Garrison on 41-91-8539CLB morphology finding Nom (Bld)NormalPeoples HospitalAlbumin [Mass/volume] in Serum or PlasmaOrdered By: Butch Redding on 36-19-3045Jtheirk [Mass/Vol]3.1 g/dL3.2-5.5FThe Jewish Hospital Automated erythrocytes count in urine sediment (number/area)Ordered By: Butch Redding on 30-64-2410QPU Auto (Urine sed) [#/Area]0-1 [HPF]0-4FThe Jewish HospitalAutomated leukocytes count in urine sediment (number/area)Ordered By: Butch Redding on 91-69-2794JRK Auto (Urine sed) [#/Area]50-100 [HPF]0-4 Pe[facility] HospitalBilirubin Test strip Ql (U)Ordered By: Butch Redding on 31-17-6808Trctmjtrg Ql (U)1+NegativePeoples Hospital COVID-19 Positive/NegativeOrdered By: Butch Redding on 38-17-3473XJDW-CoV-2 (COVID- 19) N gene FARRAH+probe Ql (Resp)NegativeNegativePeoples Hospital Comment on above:Testing for SARS-CoV-2 by RT-PCR This test was developed and its performance characteristics determined by [employer] ([employer]) and validated at the [facility]. This test has not been FDA [...] revoked sooner.COVID-19 SOFIAOrdered By: Butch Redding on 57-48-2398EWQD-CoV+SARS-CoV-2 (COVID-19) Ag IA.rapid Ql (Resp)NegativeNegative Pe[facility] HospitalComment on above:This is a duplicate Brianna SARS Antigen (DUSTIN) result to be used for statistical tracking purpose only.Color Auto (U)Ordered By: Butch Redding on 63-17-4743Wbkwb (U)Dark yellowYellowPeoples HospitalGlobulin Calc (S) [Mass/Vol]Ordered By: Butch Redding on 32-18-5436Zlrdxjpn (S) [Mass/Vol]3.0 g/dLPeoples Hospital Ketones Auto test strip (U) [Mass/Vol]Ordered By: Butch Redding on 01-13-2022 Ketones (U) [Mass/Vol]TraceNegativePeoples HospitalLaboratory - UrinalysisOrdered By: Butch Redding on 54-00-4566Oyhomnn casts LM Ql (Urine sed)9- 19 [LPF]0-8Peoples HospitalNitrite Test strip Ql (U)Ordered By: Butch Redding on 48-15-1946Bgixbtb Ql (U)NegativeNegativePeoples HospitalNo Panel InformationOrdered By: Butch Redding on 64-34-9120Jwxibj CellsFewSumma HealthARS Antigen (LFIA)[facility] HospitalProtein Auto test strip (U) [Mass/Vol]Ordered By: Butch Redidng on 60-28-3892Bmaeglm (U) [Mass/Vol]30 mg/dLNegMadison HealthProtein [Mass/volume] in Serum or PlasmaOrdered By: Butch Redding on 39-47-7428Gimfvtn [Mass/Vol]6.1 g/dL6.1-7.9[facility] Serum or plasma alanine aminotransferase measurement without P-5'-P (enzymatic activiOrdered By: Butch Redding on 65-90-1587IKU No additional P-5'-P [Catalytic activity/Vol]27 U/M76-22TbonoovpaSumma Healtherum or plasma albumin/globulin mass ratioOrdered By: Butch Redding on 33-05-9363Nzglzwj/Globulin [Mass ratio]1.0 {ratio}Summa Healtherum or plasma alkaline phosphatase measurement (enzymatic activity/volume)Ordered By: Butch Redding on 14-31-9833DWR [Catalytic activity/Vol]95 U/Y41-21GrbbmwtaaSumma Healtherum or plasma aspartate aminotransferase measurement (enzymatic activity/volume)Ordered By: Butch Redding on 74-91-5619KUZ [Catalytic activity/Vol] 27 U/H15-02TpkocituiSumma Healtherum or plasma total bilirubin measurement (mass/volume)Ordered By: Butch Redding on 32-42-2480Drbyikhhp [Mass/Vol]0.6 mg/dL0.3-1.2FSalem Regional Medical Centerpecific gravity Auto test strip (U) [Rel density]Ordered By: Butch Redding on 61-23-0434Tgtpppht gravity (U) [Rel density]1.0291.001-1.030[facility] Squamous epithelial cells detection in urine sediment by light microscopyOrdered By: Butch Redding on 03-63-4192Movglwrzuc cells.squamous LM Ql (Urine sed)1-2 [HPF] 0-1FThe Jewish HospitalTroponin I.cardiac [Mass/volume] in Serum or Plasma by High sensitivity methodOrdered By: Butch Redding on 49-31-8915Twsepwym I.cardiac High sensitivity method [Mass/Vol]4 pg/mL0-15[facility] HospitalUrine bacteria detection by automated methodOrdered By: Butch Redding on 01-29-3307Vccnoqbq Auto Ql (U)2+None SeenPeoples Hospital Urine clarity by refractometry automatedOrdered By: Butch Redding on 01-13-2022 Clarity Refractometry automated (U)CloudyCleMount [facility] glucose measurement by automated test strip (mass/volume)Ordered By: Butch Redding on 54-50-5345Ccqbdfz Auto test strip (U) [Mass/Vol]Normal mg/dLNormal [facility] HospitalUrine hemoglobin detection by automated test stripOrdered By: Butch Redding on 17-23-7203Vmmqhmozrr Auto test strip Ql (U) NegativeNegativePeoples HospitalUrine leukocyte esterase detection by automated test stripOrdered By: Butch Redding on 78-21-6051Izqddfjfp esterase Auto test strip Ql (U)3+NegativePeoples Hospital Urobilinogen Auto test strip (U) [Mass/Vol]Ordered By: Butch Redding on 01-13-2022 Urobilinogen (U) [Mass/Vol]Normal mg/dLNormalPeoples HospitalpH Auto test strip (U)Ordered By: Butch Redding on 14-25-1287gA (U)5.0 [pH]5.0-9.0 [facility] CARDIAC STRESS/REST INJECTIONon 01-04-2021 [facility] CARDIAC STRESS/REST INJECTIONMRN: [id number] Patient Name: KATHY WASHBURN STUDY: MYOCARDIAL PERFUSION STRESS TEST WITH LEXISCAN Performing facility: [facility], [address] [place] [address], [address], [place], [place] [address] Provider: Osmel Fernandes MD, [facility] PCP: Dr. Lyndon Vicente Supervising provider: Osmel Fernandes MD, FACC INDICATION: Chest Pain; HTN Hyperlipidemia Diabetes Dyspnea HISTORY: Gender: F; Age: 80 y/o ; Height: 175.26 cm; Weight: 189.6625883 kg. High Cholesterol; Diabetes; HTN; Chest Pain; SOB; Quit smoking Unknown years ago. COMPARISON: Previous nuclear testing completed at [facility]. ACCESSION NUMBER(S): [id number]; [id number]; [id number] ORDERING CLINICIAN: MONET FERNANDES TECHNIQUE: ONE DAY [...] for comparison. Electronically signed by: SARAH HODGES MDLECOM [facility] Vital Signs Date TimeVital SignValuePerforming [id number] 14:29-0500Body odtgsj728.26 cmDavileonila Sakina DO Work Phone: 1(820)[address] [place], [place] 0195211-05-2025 14:29-0500 Body mass index (BMI) [Ratio]34.5 kg/v3Qokpi Sakina DO Work Phone: 1(031)[address] [place], [place] 0195211-05-2025 14:29-0500 Body mnmlbxujesb72.2 [degF]Ayanna Sakina DO Work Phone: 1(065)[address] [place], [place] 0195211-05-2025 14:29-0500 Body .14 kgDavileonila Sakina DO Work Phone: 1(619)[address] [place], [place] 0195211-05-2025 14:29-0500 Diastolic blood pbknesyy74 mm[Hg]Ayanna Vicente DO Work Phone: 1(192)[address] [place], [place] 0195211-05-2025 14:29-0500 Heart rate82 /minDavileonila Sakina DO Work Phone: 1(215)[address] [place], [place] 0195211-05-2025 14:29-0500 SaO2% (BldA) [Mass fraction]94 %Ayanna Vicente DO Work Phone: 1(280)[address] [place], [place] 0195211-05-2025 14:29-0500 Systolic blood tnwdgdub954 mm[Hg]Ayanna Vicente DO Work Phone: 1(285)[address] [place], [place] 0195210-16-2025 11:010400 Body hrwnby836.26 cmDaperi Ogabbi DO Work Phone: 1(062)[address] [place], [place] 0195210-16-2025 11:01-0400 Body mass index (BMI) [Ratio]34.1 kg/y5Uhnoi Girabbi DO Work Phone: 1(536)[address] [place], [place] 0195210-16-2025 11:01-0400 Body .2 [degF]Ayanna Vicente DO Work Phone: 1(460)[address] [place], [place] 0195210-16-2025 11:01-0400 Body dlxukc887.77 kgDavileonila Vicente DO Work Phone: 1(582)[address] [place], [place] 0195210-16-2025 11:01-0400 Diastolic blood kvoyxsiv69 mm[Hg]Ayanna Vicente DO Work Phone: 1(700)[address] [place], [place] 0195210-16-2025 11:01-0400 Heart rate75 /minDavileonila Vicente DO Work Phone: 1(510)[address] [place], [place] 0195210-16-2025 11:01-0400 SaO2% (BldA) [Mass fraction]92 %Ayanna Vicente DO Work Phone: 1(846)[address] [place], [place] 0195210-16-2025 11:01-0400 Systolic blood cpourybq594 mm[Hg]Ayanna Vicente DO Work Phone: 1(542)[address] [place], [place] 0195210-14-2025 13:44-0400 Body rosput222.26 cmDaperi Vicente DO Work Phone: 1(158)[address] [place], [place] 0195210-14-2025 13:44-0400 Body mass index (BMI) [Ratio]34.4 kg/l0Jtedwperi Vicente DO Work Phone: 1(302)[address] [place], [place] 0195210-14-2025 13:44-0400 Body mxwdixrevkm61.3 [degF]Ayanna Vicente DO Work Phone: 1(013)[address] [place], [place] 0195210-14-2025 13:44-0400 Body fhhbxa029.68 kgDaperi Vicente DO Work Phone: 1(276)[address] [place], [place] 0195210-14-2025 13:44-0400 Diastolic blood bhmijybn25 mm[Hg]Ayanna Vicente DO Work Phone: 1(097)[address]10-14-2025 13:44-0400 Heart rate80 /Lewis Vicente DO Work Phone: 1(038)[address] [place], [place] 0195210-14-2025 13:44-0400 Respiratory rate20 /Lewis Vicente DO Work Phone: 1(104)[address] [place], [place] 0195210-14-2025 13:44-0400 SaO2% (BldA) [Mass fraction]88 %Ayanna Vicente DO Work Phone: 1(036)[address] [place], [place] 0195210-14-2025 13:44-0400 Systolic blood jtezgrnf22 mm[Hg]Ayanna Sakina DO Work Phone: 1(921)[address] [place], [place] 0195208-05-2025 14:44-0400 Body lymmyw370.26 cmDaperi Vicente DO Work Phone: 1(142)[address] [place], [place] 0195208-05-2025 14:44-0400 Body mass index (BMI) [Ratio]34 kg/q9Fuumvperi Vicente DO Work Phone: 1(399)[address] [place], [place] 0195208-05-2025 14:44-0400 Body izasofvmwqp15.3 [degF]Ayanna Vicente DO Work Phone: 1(498)[address] [place], [place] 0195208-05-2025 14:44-0400 Body fkruki767.32 kgDaperi Vicente DO Work Phone: 1(215)[address] [place], [place] 0195208-05-2025 14:44-0400 Diastolic blood eqremdzo54 mm[Hg]Ayanna Vicente DO Work Phone: 1(699)[address] [place], [place] 0195208-05-2025 14:44-0400 Heart rate79 /Lewis Earleabbi DO Work Phone: 1(642)[address] [place], [place] 0195208-05-2025 14:44-0400 SaO2% (BldA) [Mass fraction]92 %Ayanna Vicente DO Work Phone: 1(297)[address] [place], [place] 0195208-05-2025 14:44-0400 Systolic blood ntbmpnub036 mm[Hg]Ayanna Vicente DO Work Phone: 1(596)[address]07-17-2025 13:56-0400 Body xhqinb285.26 cmDaperi Vicente DO Work Phone: 1(861)[address]07-17-2025 13:56-0400 Body mass index (BMI) [Ratio]33.5 kg/f2Obzosperi Vicente DO Work Phone: 1(666)[address]07-17-2025 13:56-0400 Body .02 kgDaperi Vicente DO Work Phone: 1(632)[address] [place], [place] 0195207-17-2025 13:56-0400 Diastolic blood aewebrzf99 mm[Hg]Ayanna Vicente DO Work Phone: 1(450)[address] [place], [place] 0195207-17-2025 13:56-0400 Heart rate59 /Lewis Vicente DO Work Phone: 1(104)[address] [place], [place] 0195207-17-2025 13:56-0400 Respiratory rate16 /Lewis Vicente DO Work Phone: 1(946)[address] [place], [place] 0195207-17-2025 13:56-0400 SaO2% (BldA) [Mass fraction]94 %Ayanna Vicente DO Work Phone: 1(136)[address] [place], [place] 0195207-17-2025 13:56-0400 Systolic blood jlvphymq971 mm[Hg]Ayanna Vicente DO Work Phone: 1(303)[address]07-02-2025 13:23-0400 Body fwutnv180.3 cmFredric Itzkowitz DO Work Phone: [facility]Vdtejoqhwn93-36-2363 13:23-0400Body mass index (BMI) [Ratio]33.23 kg/j4Fwspnwl Itzkowitz DO Work Phone: [facility] HealthcareYelgwocsza24-55-5349 13:23-0400Body mpdert404.06 kgFredric Itzkowitz DO Work Phone: [facility] HealthcareXqkjkzwrgz51-84-4011 13:23-0400Diastolic blood msefxhgb09 mm[Hg]Moe Itjudithkowitz DO Work Phone: [facility] HealthcareBwbblnowzl25-74-8074 13:23-0400Systolic blood mtpkiqaq649 mm[Hg]Moe Itzkowitz DO Work Phone: [facility] HealthcareYwtdwbfxbx34-05-9322 10:0400Body beiecj339.7 Geovani German MD Work Phone: [facility]06-06-2025 10:27-0400Body mass index (BMI) [Ratio]34.74 kg/w1KwzfjnZohaib German MD Work Phone: [facility]06-06-2025 10:27-0400Body temperature 64.99 [degF]Zohaib German MD Work Phone: [facility]06-06-2025 10:27-0400Body .6 kgZohaib German MD Work Phone: [facility]06-06-2025 10:27-0400Diastolic blood beytxltd06 mm[Hg]Zohaib German MD Work Phone: [facility]06-06-2025 10:27-0400Systolic blood jxuzfxcp392 mm[Hg]Zohaib German MD Work Phone: [facility]06-05-2025 14:0400Body bagene885.26 cmPe[facility]06-05-2025 14:-0400Body mass index (BMI) [Ratio]34.9 kg/a8GwcazuljcPeoples Hospital06-05-2025 14:0400Body igyciyqunwv74.9 [degF][facility]06-05-2025 14:0400Body jhzyet244.5 kgPe[facility] Hospital06-05-2025 14:0400Diastolic blood ysbavnuc77 mm[Hg][facility]06-05-2025 14:0400 Heart rate68 /minPeoples Hospital06-05-2025 14:21-0400 Respiratory rate18 /[facility]06-05-2025 14:21-0400 SaO2% (BldA) [Mass fraction]92 %[facility]06-05-2025 14:21-0400Systolic blood vfsalmlp174 mm[Hg][facility] 11-10-2024 15:40-0400Body omrvqk128.26 cmPe[facility] Hospital 11-10-2024 15:40-0400Body mass index (BMI) [Ratio]32.9 kg/n8LltfxubpfPeoples Hospital04-30-2025 15:40-0400Body eqnnwsssvkl33.3 [degF][facility]04-30-2025 15:40-0400Body qutjmg278.15 kgPeoples Hospital04-30-2025 15:40-0400Diastolic blood yarinwpx78 mm[Hg][facility]04-30-2025 15:40-0400Heart rate74 /[facility]04-30-2025 15:40-7734UnF1% (BldA) [Mass fraction]94 %[facility]04-30-2025 15:40-0400Systolic blood yuetitgw453 mm[Hg] [facility]02-03-2025 09:06-0500Diastolic blood zhxoihir42 mm[Hg]SUSAN JAX [facility]02-03-2025 09:06-0500Heart rate69 /minJENNIFER JAX [facility]02-03-2025 09:06-0500Respiratory rate16 /minJENNIFER JAX [facility]02-03-2025 09:06-0500Systolic blood ckugzwoz28 mm[Hg]SUSAN JAX [facility]01-27-2025 14:16-0500Body mass index (BMI) [Ratio]32.93 kg/t9TartlbEsvin Dubon JUDICIAL CLERK Work Phone: [facility] HealthcareGzpznzyuxq27-18-1362 14:16-0500Body wdlvbe813.15 kgEsvin Dubon JUDICIAL CLERK Work Phone: [facility] HealthcareFjvbztlagq53-70-4212 14:16-0500Diastolic blood tglxnihi75 mm[Hg]Esvin Dubon JUDICIAL CLERK Work Phone: [facility] HealthcareVqigweswni10-26-3925 14:16-0500Heart rate64 /min Esvin Dubon JUDICIAL CLERK Work Phone: [facility] HealthcareVcpjhibzll03-10-4341 14:16-0500Systolic blood weuzetel950 mm[Hg]Esvin Dubon JUDICIAL CLERK Work Phone: [facility] HealthcareTudvbdecni04-39-0370 14:34-0500Body tsoxxv924.3 cmFredric Itzkowitz DO Work Phone: [facility] HealthcareIylwkhcvmk44-11-7489 14:34-0500Body mass index (BMI) [Ratio]33.67 kg/k7Egyenzk Itzkowitz DO Work Phone: [facility] HealthcareXkzgixnrwi75-05-0354 14:34-0500Body cnmuvp608.42 kgFredric Itzkowitz DO Work Phone: [facility] HealthcareQzhjlbimxa08-74-6739 14:34-0500Diastolic blood sohwoyzz25 mm[Hg]Moe Itzkowitz DO Work Phone: [facility] HealthcareDononjgczo80-85-1725 14:34-0500Systolic blood skwgitkr672 mm[Hg]Moe Itzkowitz DO Work Phone: [facility] HealthcareBtwtuzmrty74-52-6629 13:58-0500Body mass index (BMI) [Ratio]33.82 kg/r4Ddhyodwkvpz Aundrea DO Work Phone: [facility] HealthcareIbnlmsobgv99-69-1008 13:58-0500Body jfidqd636.87 kgChristopher Aundrea DO Work Phone: [facility] HealthcareZmkvcmvlzm84-64-9694 13:58-0500Diastolic blood mm[Hg]Babita Guillaume DO Work Phone: [facility] HealthcareVpndbgmyjh13-16-1136 13:58-0500Heart rate84 /min Christalicia Aundrea DO Work Phone: [facility] HealthcareXteimdgbkw24-87-5067 13:58-2784SyE5% (BldA) [Mass fraction]90 %Christalicia Guillaume DO Work Phone: [facility] HealthcareCubghsvwsj79-65-1403 13:58-0500Systolic blood mm[Hg]Christalicia Guillaume DO Work Phone: [facility] HealthcareUalvmczvgu56-10-3980 13:54-0500Body beknif085.7 Karthik Freitas MD Work Phone: 1(938)494-[address] [place], [place] 1017011-13-2024 13:54-0500Body mass index (BMI) [Ratio]35.31 kg/j9VgbxslChad Freitas MD Work Phone: 1(658)262-[address] [place], [place] 1017011-13-2024 13:54-0500Body temperature 97 [degF]Chad Freitas MD Work Phone: 1(530)216-[address] [place], [place] 1017011-13-2024 13:54-0500Body dbychz548.33 kgChad Freitas MD Work Phone: [facility] HospitalJoruzt80-07-4927 13:54-0500Diastolic blood mm[Hg]Chad Freitas MD Work Phone: 1(204)512-[address] [place], [place] 1017011-13-2024 13:54-0500Heart rate70 /min Chad Freitas MD Work Phone: c[facility] HospitalNcpgrk24-18-3881 13:54-0500Respiratory rate 16 /minChad Freitas MD Work Phone: [facility] HospitalNxrlpt30-10-0758 13:54-6864NzD5% (BldA) [Mass fraction]91 %Chad Freitas MD Work Phone: c[facility] HospitalQiflvk36-50-6264 13:54-0500Systolic blood rzbrmpzo60 mm[Hg]Chad Freitas MD Work Phone: [facility] HospitalFymubf45-41-9583 13:00-0500Body .7 Geovani German MD Work Phone: [facility]11-04-2024 13:00-0500Body mass index (BMI) [Ratio]34.67 kg/c3LqdspuZohaib German MD Work Phone: [facility]11-04-2024 13:00-0500Body qwvpyv542.4 kgZohaib German MD Work Phone: [facility]11-04-2024 13:00-0500Diastolic blood estthmdf44 mm[Hg]Zohaib German MD Work Phone: [facility]11-04-2024 13:00-0500Heart rate62 /min Zohaib German MD Work Phone: [facility]11-04-2024 13:00-0500Systolic blood pwjelkxc382 mm[Hg]Zohaib German MD Work Phone: [facility]10-30-2024 13:50-0400Body .34 cmDO Ayanna Vicente Work Phone: [facility]10-30-2024 13:50-0400 Body mass index (BMI) [Ratio]32.2 kg/m2DO Ayanna Vicente Work Phone: [facility]10-30-2024 13:50-0400 Body mcyngd283.77 kgDO Ayanna Vicente Work Phone: [facility]10-30-2024 13:50-0400 Diastolic blood lbyiwbsv13 mm[Hg]DO Ayanna Vicente Work Phone: [facility]10-30-2024 13:50-0400 Heart rate86 /minDO Ayanna Vicente Work Phone: [facility]10-30-2024 13:50-0400 SaO2% (BldA) [Mass fraction]93 %DO Ayanna Vicente Work Phone: 1(428)[address]10-30-2024 13:50-0400 Systolic blood pqccrqbe437 mm[Hg]DO Ayanna Vicente Work Phone: 1(131)[address] [place], [place] 0195210-29-2024 14:45-0400 Body mass index (BMI) [Ratio]31.9 kg/m2DO Ayanna Vicente Work Phone: 1(517)[address] [place], [place] 0195210-29-2024 14:45-0400 Body jfrdjudvkil00.3 [degF]DO Ayanna Vicente Work Phone: 1(555)[address] [place], [place] 0195210-29-2024 14:45-0400 Diastolic blood gdkmapgw22 mm[Hg]DO Ayanna Vicente Work Phone: 1(440)[address] [place], [place] 0195210-29-2024 14:45-0400 Heart rate76 /minDO Ayanna Vicente Work Phone: 1(135)[address] [place], [place] 0195210-29-2024 14:45-0400 SaO2% (BldA) [Mass fraction]91 %DO Ayanna Vicente Work Phone: 1(894)[address] [place], [place] 0195210-29-2024 14:45-0400 Systolic blood kddlamny791 mm[Hg]DO Ayanna Vicente Work Phone: 1(915)[address] [place], [place] 0195210-29-2024 13:41-0400 Body yfcefl893.34 cmDO Ayanna Sakina Work Phone: 1(517)[address] [place], [place] 0195210-29-2024 13:41-0400 Body lpijxh587.87 kgDO Ayanna Vicente Work Phone: 1(323)[address] [place], [place] 0195209-23-2024 08:52-0400 Body dkfbni684.34 cmPe[facility] Hospital09-23-2024 08:52-0400Body mass index (BMI) [Ratio]32.3 kg/i9FtsutmaoiPeoples Hospital09-23-2024 08:52-0400Body nhltfcreunn12 [degF][facility]09-23-2024 08:52-0400Body vjkpyy240.23 kgPeoples Hospital09-23-2024 08:52-0400Diastolic blood gynripfg13 mm[Hg][facility] 04-05-2024 08:52-0400Heart rate87 /minPeoples Hospital 04-05-2024 08:52-9383OgL5% (BldA) [Mass fraction]90 %[facility]09-23-2024 08:52-0400Systolic blood klepoazr17 mm[Hg][facility]08-26-2024 14:43-0400Body cpsped896.34 cmPeoples Hospital08-26-2024 14:43-0400Body mass index (BMI) [Ratio]32.1 kg/m2 [facility]08-26-2024 14:43-0400Body zyagiolcrto18 [degF] [facility]08-26-2024 14:43-0400Body hqursg892.32 kg [facility]08-26-2024 14:43-0400Diastolic blood pfgulawo42 mm[Hg][facility]08-26-2024 14:43-0400Heart rate73 /min [facility]08-26-2024 14:43-7632BwN5% (BldA) [Mass fraction]95 %[facility]08-26-2024 14:43-0400Systolic blood funcrhlp67 mm[Hg][facility]08-13-2024 10:15-0400 Body .88 [degF]SUSAN RANDOLPH [facility]08-13-2024 10:15-0400Diastolic blood zdesunmj08 mm[Hg]SUSAN RANDOLPH [facility]08-13-2024 10:15-0400Heart rate68 /minJENNJERMAINE RANDOLPH [facility]08-13-2024 10:15-0400Respiratory rate16 /Gail RANDOLPH [facility]08-13-2024 10:15-0400Systolic blood wmxzigbd093 mm[Hg]SUSAN RANDOLPH [facility]07-25-2024 08:08-0400Body uluwva723.34 cmPe[facility] Hospital07-25-2024 08:08-0400Body mass index (BMI) [Ratio]32.3 kg/m3RumukhittPeoples Hospital07-25-2024 08:08-0400Body onnnmgsrbls39.8 [degF][facility]07-25-2024 08:08-0400Body .23 kgPe[facility] Hospital07-25-2024 08:08-0400Diastolic blood ypeturst63 mm[Hg] [facility]07-25-2024 08:08-0400Heart rate70 /[facility]07-25-2024 08:08-0400Respiratory rate18 /[facility]07-25-2024 08:08-7876YsG2% (BldA) [Mass fraction]98 % [facility]07-25-2024 08:08-0400Systolic blood mm[Hg][facility]07-01-2024 14:32-0400Body clbqej843.34 cm DO Ayanna Vicente Work Phone: [facility]07-01-2024 14:32-0400 Body mass index (BMI) [Ratio]30.9 kg/m2DO Ayanna Vicente Work Phone: [facility]07-01-2024 14:32-0400 Body gdmzgglwppi41 [degF]DO Ayanna Vicente Work Phone: [facility]07-01-2024 14:32-0400 Body .69 kgDO Ayanna Vicente Work Phone: [facility]07-01-2024 14:32-0400 Heart rate61 /Rachael Vicente Work Phone: 1(155)[address]07-01-2024 14:32-0400 Respiratory rate18 /Rachael Vicente Work Phone: 1(918)[address]07-01-2024 14:32-0400 SaO2% (BldA) [Mass fraction]91 %DO Ayanna Vicente Work Phone: 1(500)[address]04-09-2024 14:45-0400 Body hudnjb100.34 cmDO Ayanna Vicente Work Phone: 1(772)[address]04-09-2024 14:45-0400 Body mass index (BMI) [Ratio]32.5 kg/m2DO Ayanna Vicente Work Phone: 1(013)[address]04-09-2024 14:45-0400 Body krigununlfa53.5 [degF]DO Ayanna Vicenet Work Phone: 1(146)[address]04-09-2024 14:45-0400 Body kqyxah125.68 kgDO Ayanna Vicente Work Phone: 1(011)[address]04-09-2024 14:45-0400 Diastolic blood krvcitqh92 mm[Hg]DO Ayanna Vicente Work Phone: 1(268)[address]04-09-2024 14:45-0400 Respiratory rate18 /Rachael Vicente Work Phone: 1(264)[address]04-09-2024 14:45-0400 SaO2% (BldA) [Mass fraction]92 %DO Ayanna Vicente Work Phone: 1(717)[address]04-09-2024 14:45-0400 Systolic blood qwovadcr446 mm[Hg]DO Ayanna Vicente Work Phone: 1(681)[address]01-30-2024 14:20-0500 Body pigtfb911.34 cmJelavon Mckeon Other [facility]01-30-2024 14:20-0500 Body mass index (BMI) [Ratio]32.21 kg/x8Osnjdqelavon Mckeon Other [facility] Other 01-30-2024 14:20-0500Body ehzvao805.78 kgJelavon Mckeon Other [facility] Other 01-30-2024 14:20-0500Body .77 kgDO Ayanna Vicente Work Phone: [facility]10-03-2023 14:40-0400 Body acnsxo648.34 cmDaperi Vicente Other [facility] Other 10-03-2023 14:40-0400Body mass index (BMI) [Ratio] 33.61 kg/f9Gqffaperi Vicente Other [facility] Other 10-03-2023 14:40-0400Body lpnsotntcri85.8 [degF]Ayanna Vicente Other [facility] Other 10-03-2023 14:40-0400Body lukhxv104.32 kgDaperi Vicente Other [facility] Other 10-03-2023 14:40-0400Diastolic blood rktrispm68 mm[Hg] Ayanna Vicente Other [facility] Other 10-03-2023 14:40-0400Respiratory rate18 /minDavileonila Vicente Other [facility] Other 10-03-2023 14:40-7552EwZ9% (BldA) [Mass fraction]93 % Ayanna Vicente Other [facility] Other 10-03-2023 14:40-0400Systolic blood yveejmwj773 mm[Hg] Ayanna Vicente Other [facility] Other 08-15-2023 14:40-0400Body yiclno703.34 cmDaperi Vicente Other [facility] Other 08-15-2023 14:40-0400Body mass index (BMI) [Ratio] 32.91 kg/c6Ksozzperi Vicente Other [facility] Other [id number] 14:40-0400Body beyyvxoiyyv98.9 [degF]Ayanna Vicente Other [facility] Other 08-15-2023 14:40-0400Body hqatac861.05 kgDaperi Vicente Other [facility] Other 08-15-2023 14:40-0400Diastolic blood iaofdcqh78 mm[Hg] Ayanna Vicente Other [facility] Other 08-15-2023 14:40-0400Respiratory rate18 /minDscott Vicente Other [facility] Other 08-15-2023 14:40-7044VmF5% (BldA) [Mass fraction]94 % Ayanna Vicente Other [facility] Other 08-15-2023 14:40-0400Systolic blood kdhrkakt204 mm[Hg] Ayanna Vicente Other [facility] Other [id number] 11:35-0400Blood Pressure LocationJENNIFER JAX [facility]08-01-2023 11:35-0400Diastolic blood awaarazk86 mm[Hg]SUSAN RANDOLPH [facility]08-01-2023 11:35-0400Heart rate70 /minSUSAN RANDOLPH [facility]08-01-2023 11:35-0400Systolic blood ldzfgarg301 mm[Hg]SUSAN RANDOLPH [facility]07-28-2023 13:28-0400Body guzeup452.8 cmSantos Lares MD Work Phone: [facility]07-28-2023 13:28-0400Body temperature 97.3 [degF]Santos Lares MD Work Phone: [facility]07-28-2023 13:28-0400Body tzvedw343.96 kgSantos Lares MD Work Phone: [facility]07-28-2023 13:28-0400Diastolic blood mnucbtow02 mm[Hg]Santos Lares MD Work Phone: [facility]07-28-2023 13:28-0400Heart rate74 /min Santos Lares MD Work Phone: [facility]07-28-2023 13:28-0400Respiratory rate 20 /minSantos Lares MD Work Phone: [facility]07-28-2023 13:28-4421LpR7% (BldA) [Mass fraction]93 %Santos Lares MD Work Phone: [facility]07-28-2023 13:28-0400Systolic blood knlrramc424 mm[Hg]Santos Lares MD Work Phone: [facility]01-06-2023 12:17-0500Body mudtnk929.8 cmSantos Lares MD Work Phone: [facility]01-06-2023 12:17-0500Body temperature 98.01 [degF]Santos Lares MD Work Phone: [facility]01-06-2023 12:17-0500Body zxqrtu476.6 kgSantos Lares MD Work Phone: [facility]01-06-2023 12:17-0500Diastolic blood uvazyloh80 mm[Hg]Santos Lares MD Work Phone: [facility]01-06-2023 12:17-0500Heart rate72 /min Santos Lares MD Work Phone: [facility]01-06-2023 12:17-0500Respiratory rate 16 /minSantos Lares MD Work Phone: [facility]01-06-2023 12:17-4534EbK8% (BldA) [Mass fraction]93 %Santos Lares MD Work Phone: [facility]01-06-2023 12:17-0500Systolic blood gxeorklx944 mm[Hg]Santos Lares MD Work Phone: [facility]10-06-2022 11:58-0400Body gubptq130.8 cmSantos Lares MD Work Phone: [facility]10-06-2022 11:58-0400Body temperature 97.81 [degF]Santos Lares MD Work Phone: [facility]10-06-2022 11:58-0400Body skbpye237.69 kgSantos Lares MD Work Phone: [facility]10-06-2022 11:58-0400Diastolic blood yncqtbjx69 mm[Hg]Santos Lares MD Work Phone: [facility]10-06-2022 11:58-0400Heart rate70 /min Santos Lares MD Work Phone: [facility]10-06-2022 11:58-0400Respiratory rate 16 /minSantos Lares MD Work Phone: [facility]10-06-2022 11:58-9021ImI6% (BldA) [Mass fraction]99 %Santos Lares MD Work Phone: [facility]10-06-2022 11:58-0400Systolic blood uxqwqqmt086 mm[Hg]Santos Lares MD Work Phone: [phone]09-22-2022 10:59-0400Body fpgwro237.8 cmSantos Lares MD Work Phone: [phone])[address] [place], [place] [address]9-22-2022 10:59-0400Body temperature 97.11 [degF]Santos Lares MD Work Phone: [phone]09-22-2022 10:59-0400Body zygxcr041.78 kgSantos Lares MD Work Phone: [phone]09-22-2022 10:59-0400Diastolic blood mm[Hg]Santos Lares MD Work Phone: [facility]09-22-2022 10:59-0400Heart rate68 /min Santos Lares MD Work Phone: [facility]09-22-2022 10:59-0400Respiratory rate 16 /minSantos Lares MD Work Phone: [facility]09-22-2022 10:59-3562QsZ9% (BldA) [Mass fraction]95 %Santos Lares MD Work Phone: [facility]09-22-2022 10:59-0400Systolic blood olblqebv510 mm[Hg]Santos Lares MD Work Phone: [place] [address]-20-2022 14:20-0400Body sratwn408.34 cmDaperi Vicente Other [facility] [address] Other [id number] 14:20-0400Body mass index (BMI) [Ratio] 31.73 kg/y1Vqbvxperi Vicente Other [employer] Technology Other 09-20-2022 14:20-0400Body cfbehqdqlkx70.2 [degF]Ayanna Vicente Other [employer] Other 465142-70-4629 14:20-0400Body rmmejf167.19 kgDaperi Vicente Other [employer] Other 881615-68-0747 14:20-0400Diastolic blood ynnpnyhm56 mm[Hg] Ayanna Vicente Other [employer] Other 09-20-2022 14:20-0400Respiratory rate18 /minDscott Vicente Other [employer] Other 09-20-2022 14:20-4459OnT1% (BldA) [Mass fraction]96 % Ayanna Vicente Other [employer] Other 09-20-2022 14:20-0400Systolic blood mm[Hg] Ayanna Vicente Other [employer] Other 07-27-2022 14:20-0400Body gqfixn903.34 cmDaepri Vicente Other [employer] Other 07-27-2022 14:20-0400Body mass index (BMI) [Ratio] 31.94 kg/l5PpxqpAyanna Vicente Other [place] [employer] Other 07-27-2022 14:20-0400Body wmcksdiktew97.4 [degF]Ayanna Vicente Other [place] [employer] Other 07-27-2022 14:20-0400Body wuyiqw023.87 kgDaperi Vicente Other [place] Other 07-27-2022 14:20-0400Diastolic blood mm[Hg] Ayanna Vicente Other [place] Other 07-27-2022 14:20-0400Respiratory rate18 /Lewis Vicente Other [place] Other 07-27-2022 14:20-3967ZbI6% (BldA) [Mass fraction]93 % Ayanna Vicente Other [place] Other 07-27-2022 14:20-0400Systolic blood utbmjgaj871 mm[Hg] Ayanna Vicente Other [place] Other 07-16-2022 05:00-0400Body nmgivuqgave89.6 [degF]DO Ayanna Vicente Work Phone: [facility]07-16-2022 05:00-0400 Diastolic blood jyvcdxmq25 mm[Hg]DO Ayanna Vicente Work Phone: [phone]07-16-2022 05:00-0400 Heart rate64 /Rachael Vicente Work Phone: [phone]07-16-2022 05:00-0400 Respiratory rate16 /Rachael Vicente Work Phone: [facility]07-16-2022 05:00-0400 SaO2% (BldA) [Mass fraction]94 %DO Ayanna Vicente Work Phone: [phone])[address]07-16-2022 05:00-0400 Systolic blood xyyechok333 mm[Hg]DO Ayanna Vicente Work Phone: 1(524)[address]07-13-2022 06:55-0400 Body buxsuu751.8 cmDO Ayanna Vicente Work Phone: [phone])[address]07-10-2022 06:00-0400 Body ebqkic093.6 kgDO Ayanna Vicente Work Phone: 1(515)[address]07-05-2022 17:00-0400 Body mass index (BMI) [Ratio]33 kg/m2DO Ayanna Vicente Work Phone: 1(141)[address]07-05-2022 15:40-0400 Body rjkttcupdni42.9 [degF]DO Ayanna Vicente Work Phone: 1(339)[address]07-05-2022 15:40-0400 Diastolic blood esjinlpn28 mm[Hg]DO Ayanna Vicente Work Phone: 1(512)[address]07-05-2022 15:40-0400 Heart rate72 /LeleO Ayanna Vicente Work Phone: 1(481)[address]07-05-2022 15:40-0400 Respiratory rate18 /LeleO Ayanna Vicente Work Phone: 4(362)438[address]07-05-2022 15:40-0400 SaO2% (BldA) [Mass fraction]95 %DO Ayanna Vicente Work Phone: 1(549)[address]07-05-2022 15:40-0400 Systolic blood zivabvar243 mm[Hg]DO Ayanna Sakina Work Phone: 1(447)[address]07-05-2022 05:11-0400 Body .9 kgDO Ayanna Ogabbi Work Phone: 1(129)[address]2022 19:52-0400 Body cyscvf883.8 cmDO Ayanna Vicente Work Phone: [facility]2022 19:52-0400 Body mass index (BMI) [Ratio]34.9 kg/m2DO Ayanna Sakina Work Phone: [facility]06-16-2022 11:10-0400 Body dmxemo248.34 cmDaperi Vicente Other [place] Other 911326-43-2140 11:10-0400Body mass index (BMI) [Ratio] 33.12 kg/r3Wbuabperi Vicente Other [employer] Other 602991-21-5899 11:10-0400Body .3 [degF]Ayanna Vicente Other [facility] Other 006396-81-1483 11:10-0400Body acpypl825.73 kgDaperi Vicente Other [facility] Other 738722-04-3104 11:10-0400Diastolic blood qcutksqk66 mm[Hg] Ayanna Vicetne Other [facility] Other 06-16-2022 11:10-0400Respiratory rate20 /minDscott Vicente Other [employer] Other 450427-98-3685 11:10-0781DiS9% (BldA) [Mass fraction]93 % Ayanna Vicente Other [employer] Other 583691-02-4033 11:10-0400Systolic blood ogzqjhkr981 mm[Hg] Ayanna Vicente Other [employer] Other 06-06-2022 12:00-0400Body xfbyhv877.34 cmDaperi Milner Other [employer] Other 06-06-2022 12:00-0400Body mass index (BMI) [Ratio] 32.21 kg/o7Bhtyq Alf Other [employer] Other 06-06-2022 12:00-0400Body kakcaf448.78 kgDavileonila Alf Other [employer] Other 06-06-2022 12:00-0400Diastolic blood vdyycizm99 mm[Hg] Ayanna Milner Other [employer] Other 06-06-2022 12:00-0400Systolic blood odwvjmsn91 mm[Hg] Ayanna Milner Other [employer] Other 09-22-2021 14:20-0400Body gyfkqi195.34 cmDaperi Vicente Other [employer] Other 09-22-2021 14:20-0400Body mass index (BMI) [Ratio] 32.35 kg/f0Wjusfperi Vicente Other [employer] Other 09-22-2021 14:20-0400Body dhdxenelwzv11.7 [degF]Ayanna Vicente Other [employer] Other 09-22-2021 14:20-0400Body mtbpuv127.24 kgDaperi Vicente Other [employer] Other 09-22-2021 14:20-0400Diastolic blood jgwvvfug33 mm[Hg] Ayanna Vicente Other [employer] Other 09-22-2021 14:20-0400Respiratory rate18 /minDscott Ogabbi Other [facility] [place] Other 09-22-2021 14:20-7357RcY7% (BldA) [Mass fraction]97 % Ayanna Vicente Other [facility] [place] Other 09-22-2021 14:20-0400Systolic blood qbkcytut384 mm[Hg] Ayanna Vicente Other [facility] [place] Other Encounters Encounter DateEncounter TypeCare ProviderFacilityStart: 01-12-9900awckwvrdde Sujey X OrzechFacility:EU [place]Start: 05-19-2025 End: 84-97-1405Azcmxzj encounter procedureDavileonila Vicente DO-[facility] Work Phone: Start: 05-19-2025 End: 68-39-2230icisaoleqiWgkkb Girvin DO Work Phone: [phone]-XteqozUNC Health Rex Holly SpringsStart: 05-18-2025 End: 04-08-6631rdyxbfzczrXzrrh Girvin DO Work Phone: -[facility] [place]vueStart: 05-18-2025 End: 31-45-4658Nlaisdo encounter procedureDavileonila Vicente DO-[facility] Work Phone: Start: 47-41-1321Diq-patient / Non-visitDavileonila Vicente DO-[facility] Professional [employer] Work Phone: Start: 04-28-2025 End: 38-89-2617rcngshmszaFnejb Girvin DO Work Phone: [facility] Work Phone: Start: 04-28-2025 End: 94-25-2600Jqxktho encounter procedureDavileonila Vicente DO-[facility] Work Phone: Start: 04-26-2025 End: 80-35-2683usgcsupbfiMpoog Sakina DO Work Phone: [facility] Work Phone: Start: 04-26-2025 End: 51-76-1356Jopjakj encounter procedureMckenzie Christopher DERRICK WORKER-[facility] Work Phone: Start: 04-18-2025 End: 36-83-0282Elfzmy outpatient new 30 minutesSt[facility] PA Work Phone: [facility] [place] DermatologyComment on above:Hill angioma (Primary Dx); Seborrheic keratosis; Actinic keratosis; Lentigines; Lipoma of right upper extremityStart: 04-18-2025 End: 20-57-7681thspvyhmeeUDASW [facility]AREot AvailableStart: 04-18-2025 End: 35-66-3301Agktvo flowsAdventHealth Ocala PA Work Phone: no [place] DermatologyStart: 04-18-2025 End: 52-03-6409Eeqhaw [facility] Work Phone: no [place] DermatologyStart: 03-21-2025 End: 21-75-1973lwyotooxnyXrmpvos Vytautas Giedraitis MDFacility:PM [place] Start: 00-56-0350Sfs-patient / Non-visitAndrius Giedraitis -[facility] Professional Co Work Phone: Start: 03-07-2025 End: 25-62-3621favzmobcnwWsbnogd Vytautas Giedraitis MDFacility:PM [place] Start: 02-28-2025 End: 70-25-5187hifeeubkglEkussvj Vytautas Giedraitis MDFacility:PM [place] Start: 02-21-2025 End: 34-59-3610irqmzryqbuIzhkkuy Vytautas Giedraitis MDFacility:PM [place] Start: 02-15-2025 End: 57-41-2058mmtxhxejhpFrmji Girvin DO Work Phone: [facility] Work Phone: Start: 02-15-2025 End: 73-42-3074Ghoztxq encounter procedureDaperi Vicente DO-[facility] [place] Work Phone: Start: 32-15-0660Yyb-patient / Non-visitAndcory Azul MD-[facility] Professional Co Work Phone: Start: 02-08-2025 End: 10-85-2762iwathedxuvXYIKXDJZ E PERRYFacility:EU tart: 02-08-2025 End: 82-77-4276Dfjtveh encounter procedureJENNIFER E JAX [facility] [place] start: 01-27-2025 End: 17-80-2256avotojqueaVsapq Girvin DO Work Phone: [facility] Work Phone: Start: 01-27-2025 End: 33-95-9607Siaaccx encounter procedureLesli Arevalo MD-[facility] Work Phone: Start: 01-19-2025 End: 14-97-4668Nktdviflw encounterFredric H Roxane DO Work Phone: [facility] GENSStart: 01-19-2025 End: 09-53-0259Sjxvqmo encounter procedureFredmanuel Betts DO-[facility] Work Phone: Start: 01-19-2025 End: 25-48-2301wfdbpzpmqxRodza Girvin DO Work Phone: [facility] Work Phone: Start: 11-06-3913Jtc-patient / Non-visitLesli Arevalo MD -[facility] Professional Co Work Phone: Start: 01-17-2025 End: 49-64-5149bpnibsdninZhlporf Vytautas Giedraitis MDFacility:PM [place] Start: 01-12-2025 End: 02-59-7871Mrdsxr outpatient visit 15 minutesFredric Edison Betts DO Work Phone: [facility] GENSComment on above:Diarrhea, unspecified type (Primary Dx)Start: 01-12-2025 End: 58-28-3643lpuaayaapzVSBQHVZ H ITDAPHNENot AvailableStart: 12-27-2024 End: 08-77-4029guvtxbrpgkNujnens Vytautas Giedraitis MDFacility:PM [place] Start: 12-20-2024 End: 13-73-2530bxveypkzroVfbiwkp Vytautas Giedraitis MDFacility:PM [place] Start: 12-17-2024 End: 17-38-1593Qhzopoa encounter procedureZohaib German MD Work Phone: RheumatologyComment on above:Fibromyalgia (Primary Dx); Primary osteoarthritis involving multiple joints; Type 2 diabetes mellitus without complication, with long-term current use of insulin (HCC); Long-term use of PlaquenilStart: 12-17-2024 End: 29-41-7655vjncfyfzpfHOMTN Aquiles OGVINFacility:[facility] Hospitaltart: 12-16-2024 End: 18-25-6056etbkootctcXsggvhkgpK[facility] Work Phone: Start: 12-16-2024 End: 28-84-0023Rwdquev encounter procedureC[facility] Work Phone: Start: 11-17-2024 End: 34-81-5123Syfabfvhu encounterChad Freitas MD Work Phone: cancer Appts MCComment on above:Records faxedStart: 11-10-2024 End: 01-15-2462nzzwgihstxEigaalpruKettering Health [facility] Work Phone: Start: 11-10-2024 End: 63-22-2856Bqvppcv encounter procedureC[facility] Health [facility] Physician GroupEl Camino Hospitalue Work Phone: Start: 40-94-6705Psi-patient / Non-visitC[facility] Health [facility] Physician GroupKind[facility] Professional Co Work Phone: Start: 11-01-2024 End: 49-86-6683qspsukiwikOnktbjv Vytautas Giedraitis MDFacility:PM [place] Start: 10-11-2024 End: 88-67-3139ybomrxmkzyPpnwbzt Vytautas Giedraitis MDFacility:PM [place] Start: 09-03-2024 End: 50-77-5884czuvupvesgVjutu GirvinFacility:[facility] Start: 27-22-9107Ufp-patient / Non-visitMelissa Marker DO Work Phone: [facility] Professional Co Work Phone: Start: 08-16-2024 End: 91-07-4251awxkvagvvcYVMSWZXI E PERRYFacility:EU [place]Start: 08-16-2024 End: 95-68-7004Jdbyvnd encounter procedureJENNIFER E JAX [facility] [place] start: 08-16-2024 End: 94-98-1625fphinhwwteIxnmcno Vytautas Giedraitis MDFacility:PM [place] Start: 08-11-2024 End: 28-41-3135krpqohojtoUsjzx Girvin DO Work Phone: [facility] Work Phone: Start: 08-11-2024 End: 13-38-7995Sdhyejg encounter procedureDavid Girvin DO Work Phone: [facility] Work Phone: start: 24-28-7687Vyt-patient / Non-visitDavid Girvin DO Work Phone: [facility] Family [facility] [place] Work Phone: Start: 08-10-2024 End: 27-76-8640uhhwthhrgrYrruh Girvin DO Work Phone: [facility] Work Phone: Start: 08-10-2024 End: 10-03-8476Ymgxktag ReferredDavid Girvin DO Work Phone: [facility]-Lab [place] Work Phone: Start: 08-09-2024 End: 72-30-9319Bundzi outpatient visit 15 minutesEsvin Dubon JUDICIAL CLERK Work Phone: ana LUCIAUEComment on above:Cognitive impairment (Primary Dx)Start: 08-09-2024 End: 60-30-0295tgqmfloiplPVILDV MORRISNot AvailableStart: 08-09-2024 End: 77-99-0700Rdbiyo Nestor Dubon JUDICIAL CLERK Work Phone: ana ZOEEVUEStart: 08-09-2024 End: 72-67-5528Gejthn Nestor Dubon JUDICIAL CLERK Work Phone: ana [place]Start: 08-04-2024 End: 87-24-9183azmdpvnkaqZKYWJ NORTHEIMNot AvailableStart: 07-26-2024 End: 02-26-7841dtemflmmvpJmknvjq Vytautas Giedraitis MDFacility:PM [place] Start: 07-12-2024 End: 93-72-8186ytjlsdwcghNjbtjiv Vytautas Latha MDFacility:PM [place] Start: 06-28-2024 End: 67-93-5316Rhycvn Mukesh Hammonds PhD Work Phone: [facility] NEUROLOGYStart: 06-28-2024 End: 83-49-5650Fifort Mukesh Hammonds PhD Work Phone: noms NEUROLOGYStart: 06-28-2024 End: 47-31-1733Qwjuaxy encounter procedureEnrique Hammonds PhD Work Phone: noms NEUROLOGYComment on above:Memory loss (Primary Dx); Concentration deficit; Word finding difficulty; Other chronic pain; Family history of dementiaStart: 06-28-2024 End: 96-45-5120xheybhaztrZJMYSRXB JUSTYNABESTENNot AvailableStart: 06-23-2024 End: 81-70-5199wlpijlwspgEIXZTDK H ITZKOWITZNot AvailableStart: 06-23-2024 End: 95-23-2342Qssscu outpatient visit 15 minutesFredric H Itzkowitz DO Work Phone: noms GENSComment on above:Diarrhea, unspecified type (Primary Dx); Constipation, unspecified constipation typeStart: 06-22-2024 End: 02-65-2644Rutbhmbsu Result EncounterChristopher Aundrea DO Work Phone: noms External Department UnsolicitedStart: 06-22-2024 End: 82-30-7289Atnaprtap Result EncounterChristopher Aundrea DO Work Phone: noms External Department UnsolicitedStart: 06-22-2024 Non-patient / Non-visitDavid Girvin DO Work Phone: [facility] GroupKind[facility] Professional Co Work Phone: Start: 06-17-2024 End: 46-46-3140Wxqcyd flowsheetChristopher Aundrea DO Work Phone: noms [address]TEStart: 06-17-2024 End: 62-81-0731Zqyxkl flowsheetChristopher Aundrea DO Work Phone: noms [address]TEStart: 06-17-2024 End: 62-83-6040Kbiqct outpatient new 45 minutesChristopher Aundrea DO Work Phone: noms [address] [address] R[address]TEComment on above:Cognitive impairment (Primary Dx); Long-term use of high-risk medicationStart: 06-17-2024 End: 09-94-9089gvdnzcvqlfSWDQVDUVRGA AUNDREANot AvailableStart: 52-96-6375Rrq- patient / Non-visitDavid Sakina DO Work Phone: [facility] GroupKind[facility] Professional Co Work Phone: Start: 06-15-2024 End: 75-83-2907ikcbnbaubgGkzjkcl Jane MarkerFacility:[facility] Healthtart: 06-15-2024 End: 69-73-9247Oewbdfwo ReferredDaperi Vicente DO Work Phone: [facility]-LAB Path Spec [place] HospStart: 06-14-2024 End: 62-60-4194trmpacffggRpbnzwx Vytautas Giedraitis MDFacility:PM [place] Start: 06-08-2024 End: 89-60-7029Cifij abstractingRobjavier German MD Work Phone: RheumatologyStart: 06-07-2024 End: 72-99-3308peehwkpvtwFhfcylq Vytautas Giedraitis MDFacility:[facility] Start: 05-26-2024 End: 77-60-9013ffkuegnlfvISFHT C GIRVINFacility:[facility] Hospitaltart: 30-54-1562Bbm-patient / Non-visitDavid Sakina DO Work Phone: [facility] GroupKind[facility] Professional Co Work Phone: Start: 05-26-2024 End: 32-77-2919Exstfs outpatient visit 15 minutesAdarsh Zena ROMEO Work Phone: Hematology/OncologyComment on above:CLL (chronic lymphocytic leukemia) (HCC) (Primary Dx)Start: 05-26-2024 End: 71-59-5299Unxvzfn encounter procedureDaperi Vicente DO Work Phone: [facility] Work Phone: Start: 05-26-2024 End: 70-86-1733vzzjxyaqydNqwqe Girvin DO Work Phone: [facility] Work Phone: Start: 05-18-2024 End: 43-79-5222dtlgymndwsRGMarisol Vicente Work Phone: [facility] Work Phone: Start: 05-18-2024 End: 71-51-7289Pfrzmiu encounter procedureDO Ayanna Vicente Work Phone: [facility] Work Phone: start: 05-17-2024 End: 58-36-4369mmaerackyaQAVBNH PERHALAFacility:[facility] Hospitaltart: 05-17-2024 End: 04-03-1270Yginpkh encounter procedureZohaib German MD Work Phone: RheumatologyComment on above:Primary osteoarthritis involving multiple joints (Primary Dx); Fibromyalgia; Type 2 diabetes mellitus without complication, with long-term current use of insulin (HCC)Start: 05-12-2024 End: 47-67-7084jeflcicrkiQBMarisol Vicente Work Phone: [facility] Work Phone: Start: 05-12-2024 End: 68-70-3813Winudnw encounter procedureDO Ayanna Vicente Work Phone: [facility] Work Phone: Start: 05-11-2024 End: 50-57-8724twcpbwjwwjSN David Girvin Work Phone: [facility] Work Phone: Start: 05-11-2024 End: 97-19-0429Zhsgkwo encounter procedureDO Ayanna Vicente Work Phone: [facility] Family Medicine [place] Work Phone: Start: 05-06-2024 End: 20-31-2816cdedxnjrdsXM Ayanna iVcente Work Phone: [facility] Work Phone: Start: 05-06-2024 End: 30-21-3872Dpnrkau encounter procedureDO Ayanna Vicente Work Phone: [facility] [place] Work Phone: Start: 04-05-2024 End: 40-82-9711iqdfznccbtHepfaxwwxKettering Health [facility] Work Phone: Start: 04-05-2024 End: 68-04-6740Ofidcqx encounter procedureMonroes Physician Group-[facility] Family Medicine [place] Work Phone: Start: 03-08-2024 End: 01-59-3870tcnzkdfctpEqhgrzuqnKettering Health [facility] Work Phone: Start: 03-08-2024 End: 65-03-6447Tycrkuk encounter procedureMonroes Physician Group-[facility] Family [facility] [place] Work Phone: Start: 02-24-2024 End: 50-32-1007nhdnyrdnqaNQXFAQVI E PERRYFacility:EU evueStart: 02-24-2024 End: 35-33-8077Sprxirs encounter procedureJENNIFER E JAX [facility] [place] start: 02-05-2024 End: 98-61-1038kpajvoldgqKprkhahhwKettering Health [facility] Work Phone: Start: 02-05-2024 End: 56-95-3128Gtviyom encounter procedureMonroes Physician Group-[facility] Family Medicine [place] Work Phone: Start: 30-70-1673Woe-patient / Non-visitBia Physician Group-[facility] Professional Co Work Phone: Start: 01-12-2024 End: 12-27-1443jusznzakutNH David Girvin Work Phone: [facility] Work Phone: Start: 01-12-2024 End: 24-66-0811Lgcxxwf encounter procedureDO Ayanna Vicente Work Phone: [facility] Urgent Care [facility] Work Phone: Start: 10-21-2023 End: 86-77-0210ewyhtwuybiMY Ayanna Vicente Work Phone: [facility] Work Phone: Start: 10-21-2023 End: 38-47-9889Vqjjsqk encounter procedureDO Ayanna Vicente Work Phone: [facility] Family Medicine [place] Work Phone: start: 34-68-4090Tyo-patient / Non-visitDO Ayanna Vicente Work Phone: [facility]aj [facility]ician GroupKind[facility] Professional Co Work Phone: Start: 10-17-2023 End: 98-25-4063bmxpbhnansCJ David Girvin Work Phone: [facility] Work Phone: Start: 10-17-2023 End: 44-22-5337Kigylph encounter procedureDO Ayanna Vicente Work Phone: [facility] [place] Work Phone: Start: 62-41-0642Nkn-patient / Non-visitDO Ayanna Vicente Work Phone: [facility] GroupKind[facility] Professional Co Work Phone: Start: 91-46-2560Bov-patient / Non-visitDO Ayanna Vicente Work Phone: [facility] GroupKind[facility] Professional Co Work Phone: Start: 01-38-4741Oqihlq flowsheetButch Smith DPM Work Phone: noms [facility]ODIATRYStart: 21-94-8892Ebnlqm flowsFrancois Smith DPM Work Phone: noms [facility]ODIATRYStart: 08-28-2023 End: 98-96-4862Ukpfdxn encounter procedureButch Smith DPM Work Phone: noms [facility] PODIATRYComment on above:Onychomycosis (Primary Dx); 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); Pain in both feetStart: 08-18-2023 End: 32-39-6752mrtwxbioozCxkkmoo Springer Other [employer] Other start: 49-86-2656Nkaaglpgr encounterHoma Mckeon [facility] Referral CoordinatorStart: 08-12-2023 End: 65-64-9487ffjjllshggEbzikrk Springer Other [employer] Other start: 67-54-1754Tjfjqv outpatient new 45 minutes Homa Olmedo [facility] NeurosurgeryStart: 08-12-2023 End: 91-71-2392Uyzwomw encounter procedureDO Ayanna Vicente Work Phone: [facility]-Start: 07-16-2023 End: 15-28-7376cbbdpgzavdGwxpj Girvin Other noMIOX [place] Other Start: 08-06-0275Rilyusmtc encounterAyanna Larson [facility] [place]Start: 05-12-2023 End: 86-44-6188bgfjefmjtlCkcq Braun Other [employer] Other start: 18-92-6615Zksgsrmpe encounterJunior Gong Referral CoordinatorStart: 05-07-2023 End: 89-78-2450asajuvhoeqZbfyp Sakina Other [place] Other start: 98-77-9162Rzdfxvbbo encounterDavid GeorgetteG Family Medicine [place]Start: 04-29-2023 End: 30-32-3093raamnrurpvGxhqv Sakina Other [facility] [place] Other Start: 09-64-0389Wufuglbjh encounterDavileonila PalominoG Family Medicine [place]Start: 04-25-2023 End: 33-22-0038mlrwczjddgNzyzy Sakina Other [facility] [place] Other Start: 33-40-8686Afmfzvoen encounterDavid GeorgetteG Family Medicine [place]Start: 04-24-2023 End: 17-48-9193ogqgwfbzyzPW David Girvin Work Phone: [facility] Work Phone: Start: 04-24-2023 End: 01-70-0359Berebjh encounter procedureDO Ayanna Vicente Work Phone: [facility] Work Phone: Start: 04-22-2023 End: 42-73-9423uvuxuztiwsXmwed Girvin Other [facility] [place] Other Start: 67-88-2101Cojrdtqmj encounterDavileonila PalominoG Family Medicine [place]Start: 04-15-2023 End: 36-74-8099ulijhmhmipOpbtc Girvin Other [facility] [place] Other Start: 50-88-1232Teupqq outpatient visit 25 minutes Ayanna Larson [facility] [place]Start: 04-14-2023 End: 95-87-6931wlwsauyadmAcbxy Girvin Other [facility] [place] Other Start: 84-12-4827Kwbmilrtn encounterDaperi Larson [facility] HospitalsantinoueStart: 04-09-2023 End: 87-21-5591zjcehxwqucOL David Girvin Work Phone: [facility] Work Phone: Start: 04-09-2023 End: 42-28-6443Nlugphg encounter procedureDO Ayanna Vicente Work Phone: [facility] [place] Work Phone: Start: 02-25-2023 End: 46-75-6685qaukjshtsoEnaqm Girvin Other noMIOX [place] Other Start: 28-93-4951Mmjztl outpatient visit 15 minutes [facility]arson [facility]: 02-11-2023 End: 71-35-1224Excduor encounter procedureSUSAN RANDOLPH [facility] start: 02-07-2023 End: 47-96-7733ucztamagpfJsoiv Karamlou MD Work Phone: Hematology/OncologyComment on above:CLL (chronic lymphocytic leukemia) (HCC) (Primary Dx)Start: 02-07-2023 End: 11-53-2796Tzgoznb encounter procedureSantos Lares MD Work Phone: SANDUSKYStart: 01-16-2023 End: 29-88-6321gcrcluqqxdYrmvb Girvin Other noMIOX [place] Other Start: 63-61-8774Plyjleuqf encounterDaperi Larson [facility] Elotart: 01-15-2023 End: 00-67-2537pitwsaszyyVgpse Girvin Other [employer] Other Start: 19-60-2051Nxbdsvftg encounterDavid SakinaFPG Family Medicine [place]Start: 01-07-2023 End: 94-96-7504fifodcxsglXeykt Girvin Other [employer] Other Start: 01-19-7842Ngcldbere encounterDavid SakinaFPG [facility]vueStart: 01-06-2023 End: 15-30-0916rtfxsgjjphLrkwx Sakina Other no[employer] Other Start: 39-23-8088Aofqnsjqi encounterDavid GeorgetteG [facility] BellevueStart: 72-64-2315mplkxautfsFFEitan VICENTEFacility:H1 Start: 10-16-2022 End: 57-86-5501qgazfgnvrvPrsfv Girvin Other [employer] Other Start: 35-03-9703Prxhdchfy encounterDavid SakinaFPG [facility] [place]vueStart: 10-02-2022 End: 19-69-9528obxxoqhqczKsbwi Girvin Other [facility] [place] Other Start: 82-82-3788Fdeguyiry encounterDavileonila PalominoG [facility] [place]vueStart: 09-30-2022 End: 28-81-0858aeontducqmTUMarisol Vicente Work Phone: [facility] Work Phone: Start: 09-30-2022 End: 03-10-4928Kofebjs encounter procedureDO Ayanna Vicente Work Phone: [facility]-Lab [place] Work Phone: Start: 09-24-2022 End: 30-79-2018duzvpkxworDX David Girvin Work Phone: [facility] Work Phone: Start: 09-24-2022 End: 55-63-2783Mulcuif encounter procedureDO Ayanna Vicente Work Phone: [facility] [address] Work Phone: Start: 09-02-2022 End: 49-54-4070ilqyifqurmOfxww Girvin Other [employer] Other Start: 06-23-6814Ypqlwrdym encounterDaperi VicenteLyman School for Boystart: 08-29-2022 End: 54-21-8348nnzqbifoiqJL David Girvin Work Phone: [facility] Work Phone: Start: 08-29-2022 End: 44-55-2750Wlwpvzv encounter procedureDO Ayanna Vicente Work Phone: [facility] Work Phone: Start: 08-29-2022 End: 52-70-5546Bgqzdpy encounter procedureDO Ayanna Vicente Work Phone: [facility] [address] Work Phone: Start: 08-12-2022 End: 17-64-9937cdxjfqydpnGX David Girvin Work Phone: [facility] Work Phone: Start: 08-12-2022 End: 48-06-0628Biekibm encounter procedureDO Ayanna Vicente Work Phone: [facility] Work Phone: Start: 08-05-2022 End: 91-81-7649ckinxgsbzvZstpa Girvin Other [employer] Other Start: 77-08-7746Uyepvaoif encounterDavid GirvinFPG [facility] [place]vueStart: 72-66-6853muwlqmxsviEwqtr Clark Girvin Facility:[id number]: 07-24-2022 End: 06-29-0996qmtkvxfmzwSN David Girvin Work Phone: [facility] Work Phone: Start: 07-24-2022 End: 99-59-5741Lccmgfo encounter procedureDO Ayanna Vicente Work Phone: [facility]-Electrodiagnostics Work Phone: Start: 68-16-3093Xiyoovfgd encounterSantos Lares MD Work Phone: Cancer Appts MCComment on above:Referral Information (ENT)Start: 07-19-2022 End: 47-08-9827opywqxikmpXhqkfLeonidas Lares MD Work Phone: Hematology/OncologyComment on above:CLL (chronic lymphocytic leukemia) (HCC) (Primary Dx); Right ear pain; Rib pain; Axillary adenopathy; Other signs and symptoms in breast ; Encounter for screening mammogram for malignant neoplasm of breastStart: 07-19-2022 End: 18-72-6168Monxtvu encounter Robbie Lares MD Work Phone: SANDUSKYStart: 05-31-2022 End: 25-24-0798srrofcoswyEdhys Girvin Other [employer] Other Start: 36-53-5418Hyogryknz encounterDaperi Larson Family [facility] ZoeevueStart: 05-14-2022 End: 08-52-6030ipjbrrdhdsQwyqr Girvin Other [employer] Other Start: 17-09-5622Zxuvxftvh encounterDaperi Larson Family [facility] ZoeueStart: 04-24-2022 End: 15-26-8458heretujtxfMxtjj Girvin Other [facility] [place] Other Start: 20-53-6818Hvfpatkyl encounterDaperi Larson Family [facility] BellueStart: 26-15-4952Bburgpnce encounterDaperi Larson [facility] HospitalueStart: 04-23-2022 End: 24-64-6274octoaisgbxEM David Girvin Work Phone: [place] Other Start: 04-23-2022 End: 18-17-6855Kzrmumf encounter procedureDO Ayanna Vicente Work Phone: [facility]Start: 04-18-2022 End: 33-28-7100viniedvldwZroajLeonidas Lares MD Work Phone: Hematology/OncologyComment on above:CLL (chronic lymphocytic leukemia) (HCC) (Primary Dx)Start: 04-18-2022 End: 81-44-2323Xjtavkh encounter Robbie Lares MD Work Phone: SANDUSKYStart: 04-10-2022 End: 20-18-9428aesgqhpoxwSsygx Girvin Other [place] Other Start: 77-27-3595Xbpajgmer encounterDaperi [facility]arson [facility]tart: 65-41-1754Fwlfwpotu encounterNiurka Hood Hematology/OncologyComment on above:Care Coordination (Results)Start: 04-04-2022 End: 79-93-6641nfkrcrzqrpRxyfrLeonidas Lares MD Work Phone: Hematology/OncologyComment on above:Lymphocytosis (Primary Dx)Start: 04-04-2022 End: 43-90-4571Ojtpulw encounter Robbie Lares MD Work Phone: SANDUSKYStart: 04-02-2022 End: 50-47-9221ezixbntczuHuhbm Girvin Other noMIOX [place] Other Start: 72-49-5994Djpcdo outpatient visit 40 minutes Ayanna Larson [facility]Start: 04-01-2022 End: 16-30-7039Fljbqdx encounter procedureDO Ayanna Vicente Work Phone: [facility]-Lab Main CampusStart: 03-26-2022 End: 25-31-9172usqhxhniwlBxfxo Girvin Other [employer] Other Start: 34-14-0911Bruteycqr encounterDavid SakinaFPG [facility] [place]vueStart: 03-19-2022 End: 42-94-6599lqapppswvpBqimi Sakina Other [facility] [place] Other Start: 36-38-7589Tencsgrqd encounterDavid SakinaFPG [facility] [place]vueStart: 03-13-2022 End: 30-52-2122mljoehwgmjSscts Sakina Other [employer] Other Start: 03-13-5959Axnnkxbzb encounterDavid SakinaFPG [facility] [place]vueStart: 03-08-2022 End: 73-52-0323nfcfmvvwwzIdmgk Sakina Other [employer] Other Start: 99-72-5523Tfigejasj encounterDavid SakinaFPG [facility] [place]vueStart: 03-07-2022 End: 28-08-7488ewmerxfjyhYjnkg Sakina Other [employer] Other Start: 43-01-2081Bukiejuno encounterDavid GirabbiFPG [facility] [place]vueStart: 02-28-2022 End: 54-94-7788ebvbbggbjsQunyv Sakina Other [employer] Other start: 65-14-1075Lyjpqpnma encounterDavid GirabbiFPG [facility] [place]vueStart: 02-21-2022 End: 62-48-1696cnendwmckkSeste Girvin Other [employer] Other Start: 35-76-7941Aeflxbiqn encounterDavid GirabbiFPG [facility] [place]vueStart: 02-18-2022 End: 45-31-2086amqwvrrjdeYcsep Sakina Other [employer] Other Start: 46-24-4443Nolzhyvzl encounterDavid SakinaFPG [facility] [place]vueStart: 02-15-2022 End: 95-45-1723bnuxtitvvlHhica Sakina Other [employer] Other Start: 66-13-8085Ahwasjixv encounterDavid GirabbiFPG [facility] [place]vueStart: 02-11-2022 End: 29-39-8414daaiqapqoaQflmh Sakina Other [employer] Other Start: 12-15-5943Ztnmcrmkr encounterDavid GirabbiFPG [facility] [place]vueStart: 02-06-2022 End: 18-70-3629zmqkhxjxiwDfcji Sakina Other [employer] Other Start: 06-35-4301Rztjru outpatient visit 25 minutes Ayanna VicenteFPG [facility] [place]vueStart: 01-31-2022 End: 37-68-3163cfllublklrKjsbi Sakina Other [employer] Other Start: 05-05-1579Xjxmnnwss encounterDavid GirvinFPG [facility] [place]Start: 01-15-2022 End: 03-38-3901Dhbjwvocke and management of inpatientDO Ayanna Vicente Work Phone: [facility] [place] RehabStart: 01-13-2022 End: 15-16-9632Ptqidxzhqr and management of inpatientDO Ayanna Vicente Work Phone: [facility] [place] Med SurgStart: 01-07-2022 End: 14-00-4203hcyuyxyommOasvi Girabbi Other [employer] Other Start: 09-98-5431Upfeomyjt encounterDavid Neo [facility]vueStart: 12-27-2021 End: 15-94-9189dmuzvscwasWdhqa Girabbi Other [employer] Other Start: 75-85-2135Engsja outpatient visit 15 minutes Aaynna Larson [facility]vueStart: 12-19-2021 End: 89-35-7524tvdiptfntdTlste Sakina Other [employer] Other Start: 15-01-0144Ahsegugnn encounterDavid Neo [facility] [place]vueStart: 12-18-2021 End: 25-97-7310kvdxukjwvwLnqxq Hykes Other [employer] Other Start: 89-37-4477Mudqrkeak encounterDavid HyniltonFPG Referral CoordinatorStart: 12-17-2021 End: 44-12-1723ygzwhhsluhLvtwv Hykes Other [employer] Other Start: 03-62-7953Zavvib outpatient new 45 minutesDavid DioniG GastroenterologyStart: 11-12-2021 End: 73-56-6693yckuwmlbhhHerwk Girvin Other [employer] Other start: 54-51-4742Rkpotaavl encounterDavid GirvinFPG [facility] [place]vueStart: 10-02-2021 End: 69-56-9485mnfjwtdkzxChmqz Girvin Other [employer] Other start: 22-09-3807Vvqwtmwej encounterDavid GirvinFPG [facility] [place]vueStart: 10-01-2021 End: 18-43-0683crfztgpysfAnpbf Girvin Other [facility] Other Start: 69-23-0756Wmddqorha encounterDavid GirvinFPG [facility] [place]vueStart: 09-17-2021 End: 75-09-4439umwnwxwbtqYvvlr Girvin Other [facility] Other start: 82-44-0205Mwdrszvis encounterDavid GirvinFPG [facility] [place]Start: 09-13-2021 End: 01-75-1637ehypfiwrktMzqip Girvin Other [facility] Other start: 11-66-5264Jhfriexek encounterDavid GirvinFPG [facility] [place]vueStart: 09-12-2021 End: 82-08-7182dyszslmlvcUhjuc Girvin Other [employer] Other start: 01-55-2433Wzqwfkvgq encounterDavid GirvinFPG [facility] [place]vueStart: 07-18-2021 End: 88-31-8041ipcmxnngqvVrbml Girvin Other [employer] Other start: 31-52-9255Qhdgboswz encounterDavid GirvinFPG [facility] [place]vueStart: 06-18-2021 End: 11-90-5455ramipyqsycOjzcp Girvin Other [place] Other Start: 35-26-6360Drxvblqaw encounterDavid Neo [facility]ioueStart: 74-22-0844Hpgutlbtx encounterDavid EarleabbiB[facility]oueStart: 22-17-0893Zdyaru outpatient visit 25 minutesDavid EarleabbiBANNER BOSWELL MED[facility]oueStart: 02-08-2021 End: 25-36-1778Tntwrn Brittanie Espinoza PA-C Work Phone: OrthopaedicsComment on above:Pain in both knees, unspecified chronicity (Primary Dx) Procedures DateProcedureProcedure DetailPerforming ClinicianStart: 74-83-2934Xeukpqgxi mammography of bilateral breastsDscott Vicente DO Work Phone: Start: 29-34-8659Buqvw chest X-rayDaangelad Sakina DO Work Phone: Start: 60-82-1209NPQWIZIGDTD SKIN LESIONRylee Missy WALDROP Work Phone: Start: 97-15-9315Mdirn Chuy Vicente DO Work Phone: Start: 03-76-6502LEX THYROID STIM HORMONEChristopher Aundrea DO Work Phone: Start: 78-71-4634Vinwc X-ray of left hipDaperi Vicente DO Work Phone: Start: 40-44-6659M-ray of left knee, four viewsDaperi Vicente DO Work Phone: Start: 19-22-8872Pahatcioi mammography of bilateral breastRlO Ayanna Sakina Work Phone: Start: 42-32-7212Bxhsihxd identified in Urine by Alejandro Vicente Work Phone: Start: 83-81-3039Vldbn Chuy Vicente DO Work Phone: Start: 74-88-4084Twjng cultureDO Ayanna Vicente Work Phone: Start: 78-20-1893Xhyuh x-ray of pelvis and lower extremityDO Ayanna Vicente Work Phone: Start: 52-92-0388B-ray of lumbar spine, four viewsDO Ayanna Vicente Work Phone: Start: 37-51-0588A-ray of right kneeDO Ayanna Vicente Work Phone: Start: 68-16-1839QCG of cervical spine without contrastDO Ayanna Vicente Work Phone: Start: 09-75-1522DX pre/post mri xrayDO Ayanna Vicente Work Phone: Start: 74-35-7380Lglqvmacsfitdrf of left breastDO Ayanna Vicente Work Phone: Start: 73-44-4320Pomqsjybc mammographyDO Ayanna Vicente Work Phone: Start: 15-56-0511AZ lumbar spine wo conDO Ayanna Vicente Work Phone: Start: 87-57-5730HM pre/post mri xrayDO Ayanna Vicente Work Phone: Start: 41-34-6665Rllyq chest X-rayDO Ayanna Vicente Work Phone: Start: 22-30-7132LGA + DIFFSantos Lares MD Work Phone: Start: 39-52-4084Jeaxjoj dehydrogenase ldhSantos Lares MD Work Phone: Start: 74-70-1056Ngnaeu scan of lower limb veinsDO Ayanna Vicente Work Phone: Start: 00-18-4634Pnrrg X-ray of right hipDO Ayanna Vicente Work Phone: Start: 40-90-5908Smhvkfivqztaddz of bilateral kidneys DO Ayanna Vicente Work Phone: Start: 24-20-8217BI cervical spine without contrastDO Ayanna Vicente Work Phone: Start: 66-80-9626NO of head without contrastDO Ayanna Vicente Work Phone: Start: 67-95-5512Dslun chest X-rayDO Ayanna Vicente Work Phone: Start: 14-22-4091Henrg X-ray of right wristDO Ayanna Vicente Work Phone: Start: 06-30-4349Ypexd X-ray of right tibia and right fibulaDO Ayanna Vicente Work Phone: Start: 64-90-3288Ogbedsjoy of botulinum toxin type A into detrusor muscle of urinary bladderJENNIFER JAX Start: 50-88-8844BjlyjdtsffQNLJZOTH JAX Start: 19-48-7531Fipwmqs of operative procedure on lumbar spinal structureJENNIFER JAX Start: 01-60-1581Caaxzihogihl of kneeJENNIFER JAX Start: 86-39-2432Vnhrzrdugxzq of kneeJENNIFER JAX Start: 21-01-4810Hfbuhcm of hernia repairJENNIFER JAX Start: 42-97-2055RowwrpbndhslNFJKTZCD JAX Start: 38-95-4856Wztttfe of hernia repairJENNIFER JAX Start: 07-14-1984H/O: hysterectomyJENNIFER JAX Bilateral inguinal hernia repairJENNIFER JAX Blood culture for bacteria, including anaerobic screen DO Ayanna Vicente Work Phone: ColonoscopyJENNIFER JAX Extraction of cataractJENNIFER JAX History of hernia repairSUSAN RANDOLPH SARS Antigen (LFIA)DO Ayanna Vicente Work Phone: Urine cultureDO Ayanna Vicente Work Phone: Plan of Treatment DateCare ActivityDetailAuthorStart: 44-29-9694Gwkfz microalbumin profile DTaP,Tdap,Td Vaccine (2 - Td or Tdap)[facility]art: 57-31-3805Kxngzuuu ScreeningDiabetes ScreeningProMedica Memorial Hospitaltart: 32-41-2387Hqvjnhtz Screening Diabetes ScreeningProMedica Memorial Hospitaltart: 12-75-3917XKGAENFZ SCREENDIABETES SCREENProMedica Memorial Hospitaltart: 12-19-2025 End: 19-66-9726Goesjqe encounter obzxjoatw50/08/2026 11:00 AM EDT Office Visit Rheumatology [address] [place] [address] [place] [address] [place] [address] Return in about 1 year (around 12/17/2025).RheumatologyComment on above:Return in about 1 year (around 12/17/2025).Start: 12-41-5991PCKVGPFA SCREENDIABETES SCREENProMedica Memorial Hospitaltart: 04-18-2025 End: 59-70-3946Ajjtywm encounter qdtowfhpb20/06/2025 2:30 PM EDT Office Visit [facility] [address] [place] [address] Tate Louis PA [address] [place] [address] ArrivedEL Bah DermatologyComment on above:ArrivedStart: 54-97-2540Vkzxmdico vaccinationInfluenza Vaccine (#1)[facility] HealthcareStart: 01-28-2025 End: 47-99-3969Ivhbphe encounter datfkwxcr35/18/2025 10:30 AM EDT Office Visit [facility] [address] [facility] [address] [place] [address] Moe Betts DO [address] [facility] [address] [place] [address] NOMAj MOLINA GENGENESIStart: 11-25-2024 End: 15-38-7807Fnkffkm encounter ygfoldvrl72/15/2025 11:20 AM EDT Office Visit Rheumatology [address] [place] [address] [place] [address] [place] [address] 6 month follow upRheumatologyComment on above:6 month follow upStart: 11-24-2024 End: 75-33-4454Hdjamt-up bkpswdasb39/14/2025 10:30 AM EDT Visit (SP) Office Hematology/Oncology [address] [place] [address] Chad Freitas MD [address] [place] [address] 6 month follow upHematology/OncologyComment on above:6 month follow upStart: 11-24-2024 End: 74-59-8697Ucymidl encounter tixbgptpl33/14/2025 10:15 AM EDT Office Visit [facility] [address] [place] [address] 6 month follow upNortJohn D. Dingell [facility] LaboratoryComment on above:6 month follow upStart: 11-15-2024 End: 80-14-5919Ykivads encounter nlvbvfedr84/05/2025 11:00 AM EDT Office Visit Rheumatology [address] [place] [address] [place] [address] [place] [address] 6 month follow upRheumatologyComment on above:6 month follow upStart: 66-44-5168Udjegsh referralSamaritan Hospital Work Phone: Start: 69-30-2259Dbtxg-19 Vaccine ( season) Covid-19 Vaccine ( season)[facility]tart: 84-57-9381Grhbt cultureSumma Healthtart: 27-79-4047Thprgwza identified in Urine by CultureUrine [facility] Hospitaltart: 08-10-2024 End: 12-55-5973Jozte [facility] Memorialtart: 08-09-2024 End: 64-93-7310Gdeibyj encounter procedureNOFIRELANDS REGIONAL MED[facility]OU[facility]AMPUS ROUTEComment on above:ArrivedStart: 08-04-2024 End: 68-57-0405Zdoveid encounter mgliafsgi68/22/2025 11:30 AM EST [facility] [address] [facility] [address] [place] [address]96-278-[address]25[address] NEUROLOGYStart: 62-65-4748Shtgpti Directive DiscussionAdvance Directive DiscussionProMedica Memorial Hospitaltart: 06-28-2024 End: 22-80-8563Zpqwcjv encounter procedureNOWALKER COUNTY HOSPITAL NEUROLOGYComment on above: Cognitive impairmentStart: 06-23-2024 End: 58-84-1003Tjoppnk encounter /11/2024 2:30 PM EST Consult [facility] [address] [facility] [address] [place] [phone] Moe Betts DO [address] [facility] [address] [place] [address] [facility]Start: 06-17-2024 End: 40-07-2760Lhmgvzxfa (Vitamin B12) [Mass/volume] in Serum or PlasmaVitamin B12 Lab Routine Cognitive impairment Long-term use of high-risk medication Expected: 06/17/2024 (Approximate), Expires: 06/17/2025[facility] Work Phone: comment on above:Expected: 06/17/2024 (Approximate), Expires: 06/17/2025Start: 06-17-2024 End: 67-50-6894Emnymvc encounter vxqfyuwqv84/05/2024 2:00 PM EST Office Visit [facility] [place] [address] [place] [address] Primo GuillaumealiciaDO [address] [place] [address] ArrivedNOFIRELANDS REGIONAL MEDICAL C[facility]OUTH CAMPUS ROUTEComment on above:ArrivedStart: 06-17-2024 End: 62-09-4401Pdlruvmmeid [Units/volume] in Serum or PlasmaTSH Lab Routine Cognitive impairment Long-term use of high-risk medication Expected: 06/17/2024 (Approximate), Expires: 06/17/2025[facility] HealthcareComment on above:Expected: 06/17/2024 (Approximate), Expires: 06/17/2025Start: 43-32-4918Vbiwcqp referral [facility] Work Phone: Start: 46-01-0931Ntgdopyw identified in Urine by CultureUrine [facility] Hospitaltart: 28-22-6638Zkygkuu [facility] Work Phone: Start: 04-88-1886Gqxvzxf [facility] Work Phone: Start: 11-17-2023 End: 37-55-6763Xeliqip encounter jiljczwzc28/06/2024 1:15 PM EDT Procedure Visit [facility] [address] [place] [address] Butch Smith DPM [address] [place] [address] [facility] PODIATRYStart: 40-84-0369Vcpqdfzw identified in Urine by CultureSumma Healthtart: 02-18-9242Akkcwaef Vaccine (2 of 2)Shingrix Vaccine (2 of 2)[facility] Hospitaltart: 08-10-2023 End: 91-13-9441MGQ W Auto Differential panel - BloodCBC + DIFF Lab Routine CLL (chronic lymphocytic leukemia) ([facility]) Expected: 08/10/2023 (Approximate),Expires: 10/10/2023[facility] Work Phone: Comment on above:Expected: 08/10/2023 (Approximate), Expires: 10/10/2023Start: 08-10-2023 End: 31-81-7562Bbzgfclfugdrn metabolic 2000 panel - Serum or PlasmaCOMP METABOLIC PANEL Lab Routine CLL (chronic lymphocytic leukemia) ([facility]) Expected: 08/10/2023 (Approximate), Expires: 10/10/2023[facility] Work Phone: Comment on above:Expected: 08/10/2023 (Approximate), Expires: 10/10/2023Start: 90-19-7790Ziadznx Directive DiscussionAdvance Directive DiscussionProMedica Memorial Hospitaltart: 24-76-8420Rjefuwehh vaccination [facility]tart: 01-16-2023 End: 91-45-3448ZCM W Auto Differential panel - BloodCBC + DIFF Lab Routine CLL (chronic lymphocytic leukemia) ([facility]) Expected: 01/16/2023 (Approximate),Expires: 03/18/2023[facility] Work Phone: Comment on above:Expected: 01/16/2023 (Approximate), Expires: 03/18/2023Start: 01-16-2023 End: 61-59-5261Nvuwbhxymnajy metabolic 2000 panel - Serum or PlasmaCOMP METABOLIC PANEL Lab Routine CLL (chronic lymphocytic leukemia) ([facility]) Expected: 01/16/2023 (Approximate), Expires: 03/18/2023[facility] Work Phone: Comment on above:Expected: 01/16/2023 (Approximate), Expires: 03/18/2023Start: 06-16-2425HDNXJ-19 VACCINE (5 - Pfizer series)COVID-19 VACCINE (5 - Pfizer series)[facility]tart: 07-26-2022 End: 17-00-4549Op breast uni real time with image limitedUS BREAST LTD LT Radiology Routine Axillary adenopathy Other signs and symptoms in breast Expected:07/26/2022, Expires: 08/18/2023[facility] Work Phone: Comment on above:Expected: 07/26/2022, Expires: 08/18/2023Start: 07-19-2022 End: 41-83-8143QTV W Auto Differential panel - BloodCBC + DIFF Lab Routine CLL (chronic lymphocytic leukemia) ([facility]) Expected: 07/19/2022 (Approximate),Expires: 09/18/2022[facility] Work Phone: Comment on above:Expected: 07/19/2022 (Approximate), Expires: 09/18/2022Start: 07-19-2022 End: 01-60-1512Yqwybrnwegjno metabolic 2000 panel - Serum or PlasmaCOMP METABOLIC PANEL Lab Routine CLL (chronic lymphocytic leukemia) ([facility]) Expected: 07/19/2022 (Approximate), Expires: 09/18/2022[facility] Work Phone: Comment on above:Expected: 07/19/2022 (Approximate), Expires: 09/18/2022Start: 07-19-2022 End: 89-89-6791Eqrhydv dehydrogenase [Enzymatic activity/volume] in Serum or PlasmaLD LACTATE DEHYDRO Lab Routine CLL (chronic lymphocytic leukemia) ([facility]) Expected: 07/19/2022 (Approximate), Expires: 09/18/2022[facility] Work Phone: Comment on above:Expected: 07/19/2022 (Approximate), Expires: 09/18/2022Start: 29-61-8665LQHGIVO DIRECTIVE DISCUSSIONADVANCE DIRECTIVE DISCUSSIONProMedica Memorial Hospitaltart: 01-93-4195RZTRMQGUQH ASSESSMENT DEPRESSION ASSESSMENTProMedica Memorial Hospitaltart: 04-04-2022 End: 73-56-6775Mjjq-2-Microglobulin [Mass/volume] in Serum or PlasmaSuburban Community Hospital & [facility] Work Phone: Comment on above:Expected: 04/04/2022, Expires: 06/04/2022tart: 04-04-2022 End: 07-81-8668Tkzebem hepatitis differentiation between hepatitis B and C virus panel - Serum or PlasmaSuburban Community Hospital & [facility] Work Phone: Comment on above:Expected: 04/04/2022, Expires: 06/04/2022tart: 04-04-2022 End: 91-24-1169LAQW CYTOMETRY PERIPHERAL BLOOD LEUK/LYMPH (FCLEUK)[facility] Work Phone: Comment on above:Expected: 04/04/2022, Expires: 06/04/2022tart: 54-76-4809Ruastksnz vaccinationINFLUENZA (#1)[facility] Start: 51-07-4771WfotjriznSumma Healthtart: 16-65-9103Nwbqnvosiwbq [facility]htart: 78-03-7655Ltjdwmbq admissionSumma Healthtart: 55-37-6411Jmbzggox to clinical allergistSumma Healthtart: 69-88-1876FnrkorxaiLancaster Municipal Hospital [facility]tr Work Phone: Start: 90-60-8356Aoebaizf admissionLancaster Municipal Hospital Ctr Work Phone: Start: 76-45-3402RNQOW-19 VACCINE (4 - Booster for Pfizer series)COVID-19 VACCINE (4 - Booster for Pfizer series)[facility] Start: 60-37-6528ITFBSWO DIRECTIVE DISCUSSIONADVANCE DIRECTIVE DISCUSSION [facility]tart: 61-76-2303IILZAGYONF ASSESSMENTDEPRESSION ASSESSMENT [facility] Hospitaltart: 67-22-2819Wajhhisjt vaccinationINFLUENZA (#1)[facility] Hospitaltart: 30-52-6452RLHAZXO DIRECTIVE DISCUSSIONADVANCE DIRECTIVE DISCUSSION [facility]tart: 19-38-0517WBXD DENSITYBONE DENSITYProMedica Memorial Hospitaltart: 89-37-5299LDQDEOQMNSXB: 65+ (1 - PCV)PNEUMOCOCCAL: 65+ (1 - PCV)[facility] Start: 66-47-8465RIXCXTVHN AGE 65 AND OVER WITH 5YR LOOKBACK (#1)PNEUMOVAX AGE 65 AND OVER WITH 5YR LOOKBACK (#1)[facility]art: 52-80-8250Kmytkhnxv for osteoporosisBone Density ScreeningProMedica Memorial Hospitaltart: 92-74-4964Kfnpifjec for malignant neoplasm of colonProMedica Memorial Hospitaltart: 81-35-3413RGMYWCVN VACCINE (1 of 2)SHINGRIX VACCINE (1 of 2)[facility]tart: 15-56-0929YIEGMJRU SCREENDIABETES SCREENProMedica Memorial Hospitaltart: 29-71-8310ELQAQLDA VACCINE (1 of 2) SHINGRIX VACCINE (1 of 2)[facility]: 28-36-1829Rtuws microalbumin profileDTAP,TDAP,TD (1 - Tdap)[facility]: 19-46-3001Tjifjjh Screening Anxiety ScreeningProMedica Memorial Hospitaltart: 98-65-3356Rlvkpaooeq ScreeningDepression ScreeningProMedica Memorial Hospitaltart: 86-70-5848Jbolkqeke B surface antibody levelLDL CholesterolProMedica Memorial Hospitaltart: 21-39-4374LWNMSBFXD C SCREENINGHEPATITIS C SCREENINGProMedica Memorial Hospitaltart: 05-71-3880Lihqr depression screening assessment DEPRESSION SCREENINGProMedica Memorial Hospitaltart: 77-97-9084OUTEA-19 VACCINE (1)COVID- 19 VACCINE (1)[facility]: 03-34-6830Htggeblt foot examinationDiabetic Foot ExamProMedica Memorial Hospitaltart: 96-23-9573Lgaauanz screeningDilated Retinal ExamProMedica Memorial Hospitaltart: 09-30-1687Gmwsofpor B screeningUrine Albumin:Creatinine RatioProMedica Memorial Hospitaltart: 54-68-4116XONYAJEOIFII: 65+ (1 - PCV)PNEUMOCOCCAL: 65+ (1 - PCV)[facility]: 61-52-2014Mvwqbbtahn A1c sjpuokwlxfmPjQ8VAylkvkikg ClinicBacteria identified in Urine by CulturePeoples HospitalCBC W Auto Differential panel - BloodCBC + DIFF Lab Routine Lymphocytosis 04/04/2022 11:00 AM [facility] Work Phone: CB W Auto Differential panel - BloodCOMPLETE BLOOD COUNT AND DIFFERENTIAL Lab Routine CLL (chronic lymphocytic leukemia) (HCC) 05/26/2024 2:20 PM [facility] Work Phone: comprehensive metabolic 1999 panel - Serum or Plasma [facility] HospitalComprehensive metabolic 1999 panel - Serum or PlasmaPeoples HospitalComprehensive metabolic 1999 panel - Serum or PlasmaPeoples HospitalComprehenve metabolic 1999 panel - Serum or PlasmaPeoples HospitalFLOW CYTOMETRY PERIPHERAL BLOOD LEUK/LYMPH (FCLEUK)FLOW CYTOMETRY PERIPHERAL BLOOD LEUK/LYMPH (FCLEUK) Lab Routine Lymphocytosis 04/04/2022 11:02 AM [facility] Work Phone: FLOW SLIDEFLOW SLIDE Lab Routine Lymphocytosis 04/04/2022 11:02 AM [facility] Work Phone: Glucose measurement estimated from glycated hemoglobin Peoples HospitalHepatitis B virus core Ab [Presence] in Serum HEP B CORE AB TOTAL Lab Routine Lymphocytosis 04/04/2022 11:00 AM [facility] Work Phone: Hepatitis B virus surface Ab [Presence] in SerumHEP B SURF AB QUAL Lab Routine Lymphocytosis 04/04/2022 11:00 AM [facility] Work Phone: Hepatitis B virus surface Ab [Presence] in Serum by ImmunoassayHEP B SURF AG SCRN Lab Routine Lymphocytosis 04/04/2022 11:00 AM [facility] Work Phone: Hepatitis C virus Ab [Presence] in SerumHEP C AB IA W/CONF SCRN Lab Routine Lymphocytosis 04/04/2022 11:00 AM [facility] Work Phone: End: 46-64-7269FIW SCREENING W TOMOMAM SCREENING W NEYDA Radiology Routine Encounter for screening mammogram for malignant neoplasm of breast 1 Occurrences starting 07/19/2022 until 08/18/2023[facility] Work Phone: Comment on above:1 Occurrences starting 07/19/2022 until 08/18/2023MG Breast - bilateral ScreeningPeoples Hospital MG Breast - bilateral ScreeningPeoples HospitalPatient EducationWrist Fracture (DC)[facility] Work Phone: Patient referralLancaster Municipal Hospital [facility]tr Work Phone: End: 23-21-2170Bxwmmgvvev exam knee complete 4/more viewsXR KNEE GENERAL 4V AP BOTH/PA BOTH/LAT/MERC BILAT Radiology Routine Pain in both knees, unspecified chronicity 1 Occurrences starting 02/08/2021 until 2[facility] Comment on above:1 Occurrences starting 02/08/2021 until 03/10/2022 End: 37-67-0717Rnzaeioeut examination pelvis 1/2 viewsXR PELVIS 1V AP Radiology Routine Pain in both knees, unspecified chronicity 1 Occurrences starting 02/08/2021 until 2[facility]Comment [facility]:1 Occurrences starting 02/08/2021 until 2Renal function 1999 panel - Serum or Plasma [facility] HospitalRenal function 2000 panel - Serum or Plasma [facility]therum fructosamine measurementLancaster [facility] Work Phone: Urine [facility] ClinicUrine [facility] ClinicUS Kidney - bilateralPeoples HospitalXR Chest 2 [facility] - [facility] 4 [facility] End: 83-20-5160BY RIBS/CHEST 3V AP RIB/OBLS/CXR LEFTXR RIBS/CHEST 3V AP RIB/OBLS/CXR LEFT Radiology Routine Rib pain 1 Occurrences starting 07/19/2022 u ntil 4[facility] Work Phone: Comment on above:1 Occurrences starting 07/19/2022 until 4C[facility]and [facility] [place] Immunizations Immunization DateImmunizationNotesCare DhnomjpwDtvulrtc25-28-8851MIAMQ-61 (PFIZER) 12Y and olderDavid Sakina DO Work Phone: [facility]09-06-2024influenza virus vaccine, unspecified formulationJENNIFER JAX [facility]09-06-2024influenza, high dose seasonal, preservative-freeDavid Girvin DO Work Phone: [facility]12-11-2023COVID-19 (PFIZER) 12Y and olderPe[facility] Hospital12-11-2023 Pneumococcal Conjugate Vaccine, [facility] 60-01-0784LEB, preF3, adj, pfPeoples Hospital12-11-2023zoster vaccine [facility]10-03-2023influenza, high dose seasonal, preservative-freeDavileonila Vicente Other [place] Other [id number] QIV High-Dose 65YR+[facility]10-03-2023influenza virus vaccine, unspecified formulationJohn [place] DPM Work Phone: [facility]10-10-2022 pneumococcal polysaccharide vaccine, 23 valentDaperi Vicente Other [facility]10-06-2022COVID-19 mRNA Bivalent Booster (Pfizer)[facility]2022tetanus toxoid, reduced diphtheria toxoid, and acellular pertussis vaccine, adsorbed Ayanna Vicente Other [facility]11-19-2021COVID-19 Vaccine Pfizer - Documentation Purposes OnlyDavileonila Vicente Other [facility]10-13-2021influenza virus vaccine, unspecified formulationJENNIFER JAX [facility]09-22-2021influenza, high dose seasonal, preservative-freeDavileonila Vicente Other [place] Other [id number] virus vaccine, unspecified formulationDO Ayanna Girabbi Work Phone: [facility]09-22-2021Influenza, High-dose Seasonal, Quadrivalent, Preservative FreeJohn [place] DPM Work Phone: [facility] HealthcareVhfwcmdzuo63-18-3895NBZTC-11 Vaccine Pfizer - Documentation Purposes OnlyDavid Girabbi Other [facility]02-19-2021SARS-CoV-2 (COVID-19) mRNA-1273 vaccineJENNIFER JAX [facility]01-29-2021COVID-19 Vaccine Pfizer - Documentation Purposes OnlyDaperi Ogabbi Other [facility]01-29-2021SARS-CoV-2 (COVID-19) mRNA-4270 vaccineJENNIFER JAX [facility]09-01-2020influenza virus vaccine, unspecified formulationJENNIFER JAX [facility]01-01-2020pneumococcal conjugate vaccine, 13 [facility]09-21-2019influenza virus vaccine, unspecified formulationJENNIFER JAX [facility]09-21-2019Seasonal trivalent influenza vaccine, adjuvanted, preservative [facility]09-21-2019pneumococcal polysaccharide vaccine, 23 valentDavid Girvin Other [facility]09-21-2019influenza, seasonal, injectableDavid Girvin Other [facility]11-12-2018influenza virus vaccine, unspecified formulationJEJULIETTE RANDOLPH [facility]11-12-2018Influenza, injectable, Madin Hamilton Canine Kidney, preservative free, quadrivalentPeoples Hospital11-12-2018influenza, seasonal, injectableDavid Girvin Other [facility]10-10-2018Kenalog -40 mgDavid Girvin Other [place] Other Payers DatePayer CategoryPayerPolicy [id number]-[id number] [id number] [id number] Health InsuranceOH[facility] A[facility] SUPPLE[facility] [id number] 2020-Present Indemnity [id number].3.983684.97088-72-2009Yslmdkg Health [id number] 2007MedicareMEDICARE MEDICARE A AND B [id number] 2007-Present [place], [place] [id number] [id number] 2007Medicare 1.2.840.264916.1.13.159.2.7.3.350069.315 [id number] 2.16.840.2.86145[id number] 2.16.840.2.059491.9554-21-1942 [id number] 2.16.840.1.414044.3.57[id number] 2.16.840.1.485968.3.57[id number] 2.16.840.1.558449.3.57[id number] 2.16.840.1.504034.3.57[id number] 2.16840.1.682639.3.57[id number] 2.16840.1.829051.3.57[id number] 2.16.840.1.324873.3.57[id number] 2.16.840.1.338063.3.579.2.49679-48-4743Ydqussa652372525 2.16840.1.844788.3.579.2.2[id number] 2.16.840.1.250642.3.57[id number] 2.16840.1.851431.3.579.2.[id number] 2.16.840.1.385999.3.57[id number] 2.16.840.1.123547.3.579.[id number] 2.16.840.1.531962.3.579.2.2[id number] 2.16.840.1.918323.3.579.2.19845-52-3826Yscqdul587255802 2.16.840.1.660697.3.579.2.52091-02-1843Svwbtwo664434013 2.840.1.124144.3.579.2.45729-86-8579Xbzebpv590025082 2.840.1.868713.3.579.2.[id number] 2.840.1.903419.3.57[id number] 2.840.1.189385.3.579.2.91321-40-9020Ckmtewx75664485 2.840.1.267323.3.579.2.006992-57-7881Qkanmrj19745903 2.840.1.270890.3.579.2.303220-50-5770Gkvtefl4106465 2.840.1.795642.3.579.2.610323-39-3982Kloisfo6059036 2.840.1.297197.3.579.2.620899-05-1710Mxwxlye1119060 2.840.1.652154.3.579.2.539119-62-8842Zhitcwd7638989 2.16.840.1.273821.3.579.2.130912-90-4995Utdxkti9156001 2.16.840.1.26[id number] 2.16840.1.834815.3.579.2.531 [id number] 2.16.840.1.131652.3.579.2.537Wnqlqua25352616 2.16.840.1.972289.3.579.2.910Gughxuw16601803 2.16.840.1.246100.3.579.2.531 [id number] 2.16.840.1.670857.3.579.2.822Gazzxvy13832469 2.16.840.1.6[id number] 2.16.840.1.739540.3.579.2.531 Social History DateTypeDetailFacilityStart: 02-20-2004 End: 58-55-8910Tbxngup smoking status NHISFormer smokerPeoples HospitalComment on above:quit smoking in 1984Start: 07-14-1979 End: 15-96-9154Kgztpzl of tobacco useCurrent smokerSumma Health Work Phone: Start: 39-53-9623Nmwodmw intakeNot AskedProMedica Memorial Hospitaltart: 96-39-8018Jmd Assigned At BirthNot on fileProMedica Memorial Hospitaltart: 02-07-2023 End: 61-67-7505Axu [facility]: 49-98-4041Kad [facility] End: 23-19-6634Dfskkcm of tobacco useCigarette SmokerProMedica Memorial Hospitaltart: 04-04-2022 End: 54-93-7072Yllejnzjol smoked current (pack per day) - Reported1.5CHolmes County Joel [facility] Hospitaltart: 04-04-2022 End: 28-12-7631Cxrrrms use and exposureSmokeless tobacco non-userProMedica Memorial Hospitaltart: 04-04-2022 End: 79-93-6942Jnzttgt intakeEx-drinker (finding)[facility]: 03-25-2022 End: 79-32-5486Mdddusjm to SARS-CoV-2 (event)Not sureSumma HealthAdholy cross hospital Depression Screening Hobeugwshd9Peznwptak ClinicComscheurer hospital on above:quit smoking in 1984Start: 49-63-0755Nlbpnvl smoking status NHISNever smoked tobaccoNOMS HealthcareStart: 08-21-2023 End: 23-39-6341Pyphbmq intakeCurrent drinker of alcohol (finding)[facility] Start: 15-17-6484Omujhqh CommentAlcohol: 1-2 drinks occasionally. Caffeine: 3-4 cups/day coffeeNOMS HealthcareStart: 05-27-2024 End: 93-49-8217OwsUfvlri (finding)[facility] Healthexual OrientationExec[facility] Medical Equipment Procedure CodeEquipment CodeEquipment Original TextEquipment IdentifierDates Start: 01-35-0387OHMIECHYK FUSELOX LUMBARFDAStart: 72-71-4848BMZCYLYL RELINE SCREWFDAStart: 01-25-4770BBEJLALM RELINE SCREWFDAStart: 51-59-1428RZVLQTKR RELINE SCREWFDAStart: 36-72-0733KHFCQTWL RELINE SCREWFDAStart: 03-24-2017 NUVASIVE RODFDAStart: 01-28-6176CCXVXGJI RODFDAStart: 78-22-5906OUWKFWSL GRANULES 10CCFDAStart: 37-47-9079LAUPQGFOA FUSELOX LUMBARFDAStart: 03-24-2017 [facility] One Level DeformityFDAStart: 60-48-9132OASOHIVKVG 15CC CRUSHEDFDAStart: 91-21-4905PCBBYKWSL CAPLOX II MED/LGFDAStart: 59-09-4672KOBTFCSQ LOCK SCREWSFDA Start: 07-40-5564PZMVWFXT LOCK SCREWSFDAStart: 40-13-0300CDRDQDEJ LOCK SCREWSFDA Start: 67-31-7427TDOCDPEM LOCK SCREWSFDAStart: 42-58-7237JPXENDKZY FUSELOX LUMBARFDAStart: 86-36-2109EDXDOXWX RELINE SCREWFDAStart: 64-67-9569WZZKKEKD RELINE SCREWFDAStart: 96-43-5690TTNFZLYT RELINE SCREWFDAStart: 03-24-2017 NUVASIVE RELINE SCREWFDAStart: 25-24-6462RGDPSNCJ RODFDAStart: 03-24-2017 NUVASIVE RODFDAStart: 02-65-1284IMCYENAJ GRANULES 10CCFDAStart: 03-24-2017 ALLOGRAFT FUSELOX LUMBARFDAStart: 90-06-2420Dptywx One Level DeformityFDAStart: 34-76-0352IJAVZQFQFG 15CC CRUSHEDFDAStart: 10-05-1738GPXKZPXCB CAPLOX II MED/LG FDAStart: 00-43-5071HQIHIZRV LOCK SCREWSFDAStart: 79-68-7264WLLHWORT LOCK SCREWS FDAStart: 92-01-6703OBJKEAYM LOCK SCREWSFDAStart: 70-85-1879CLJGTNPS LOCK SCREWS FDAStart: 84-17-4960KZWSMUNAF FUSELOX LUMBARFDAStart: 16-15-9015WCBFNIZJ RELINE SCREWFDAStart: 37-51-3378ZKTUCRDA RELINE SCREWFDAStart: 46-31-0881XJALGJEV RELINE SCREWFDAStart: 61-27-4395BYCBZPCY RELINE SCREWFDAStart: 03-24-2017 NUVASIVE RODFDAStart: 55-12-5594NYNZNBKQ RODFDAStart: 13-34-2527KTMGJWQM GRANULES 10CCFDAStart: 85-69-5027FMGIOZDKR FUSELOX LUMBARFDAStart: 03-24-2017 [facility] One Level DeformityFDAStart: 81-14-8922EUZPJZNABJ 15CC CRUSHEDFDAStart: 85-65-1648PPOSGFMRH CAPLOX II MED/LGFDAStart: 54-01-3745IXIPSYRE LOCK SCREWSFDA Start: 24-06-6610OWNJMYHE LOCK SCREWSFDAStart: 19-12-2482TQLLVBDB LOCK SCREWSFDA Start: 08-73-9720TWZMGHTN LOCK SCREWSFDAStart: 55-67-4189XFVHEXBTL FUSELOX LUMBARFDAStart: 91-30-4625SFIUKOCS RELINE SCREWFDAStart: 80-25-2651ZRYEHECB RELINE SCREWFDAStart: 87-35-7684DTMFMLKM RELINE SCREWFDAStart: 09-11-2017 NUVASIVE RELINE SCREWFDAStart: 49-92-0693VMTNEUFF RODFDAStart: 03-24-2017 NUVASIVE RODFDAStart: 71-44-0565XOYYIKAP GRANULES 10CCFDAStart: 03-24-2017 ALLOGRAFT FUSELOX LUMBARFDAStart: 36-28-9649Qxlpjy One Level DeformityFDAStart: 29-98-9642BOUEWZTBGU 15CC CRUSHEDFDAStart: 05-40-6751DSTZDMACX CAPLOX II MED/LG FDAStart: 65-16-4637OWSKXQQA LOCK SCREWSFDAStart: 76-96-3255VKIIEXXG LOCK SCREWS FDAStart: 74-27-7643BUJDGKXF LOCK SCREWSFDAStart: 98-64-7284OJVNYDQO LOCK SCREWS FDAStart: 19-45-8561IGSIXLOGC FUSELOX LUMBARFDAStart: 16-02-5231JMBAOZCA RELINE SCREWFDAStart: 03-14-7900UEAQRBJE RELINE SCREWFDAStart: 08-68-4455PRYTALKG RELINE SCREWFDAStart: 82-13-8359TRQRWHQF RELINE SCREWFDAStart: 03-24-2017 NUVASIVE RODFDAStart: 51-27-0406BIRSZAZI RODFDAStart: 14-15-3509TNKKPJCL GRANULES 10CCFDAStart: 54-63-9760PLUGAVLCZ FUSELOX LUMBARFDAStart: 03-24-2017 [facility] One Level DeformityFDAStart: 48-72-3192RVISFUYURW 15CC CRUSHEDFDAStart: 03-81-6599BNMLDRQOB CAPLOX II MED/LGFDAStart: 64-44-0881GSHYYJJX LOCK SCREWSFDA Start: 04-26-8894PDRWEOTN LOCK SCREWSFDAStart: 07-98-4856KADJNNCW LOCK SCREWSFDA Start: 24-32-2655WXGMCTBO LOCK SCREWSFDAStart: 87-83-6815YUPCXXOES FUSELOX LUMBARFDAStart: 79-33-1064WIWGOCDE RELINE SCREWFDAStart: 68-69-7689QEYBGFTK RELINE SCREWFDAStart: 34-89-2469MJIONECO RELINE SCREWFDAStart: 03-24-2017 NUVASIVE RELINE SCREWFDAStart: 26-51-3829NKYNFJOY RODFDAStart: 03-24-2017 NUVASIVE RODFDAStart: 15-36-5522VLAVKASQ GRANULES 10CCFDAStart: 03-24-2017 ALLOGRAFT FUSELOX LUMBARFDAStart: 62-51-4244Ryzxfp One Level DeformityFDAStart: 74-62-4235BYWVGMQETP 15CC CRUSHEDFDAStart: 57-35-5562FDOWIETAV CAPLOX II MED/LG FDAStart: 72-11-7035ATWHJVLM LOCK SCREWSFDAStart: 70-21-8305TQCRDCFU LOCK SCREWS FDAStart: 67-60-9747BDNSWKDY LOCK SCREWSFDAStart: 37-95-3684JPBRFICL LOCK SCREWS FDAStart: 50-61-5106NZQCUAUJT FUSELOX LUMBARFDAStart: 18-71-6714WSKDAIEX RELINE SCREWFDAStart: 15-55-3778SHIBAFFE RELINE SCREWFDAStart: 71-67-9418PKMLIFDW RELINE SCREWFDAStart: 39-08-6950AKRVLNOW RELINE SCREWFDAStart: 03-24-2017 NUVASIVE RODFDAStart: 02-31-4894PDSQJLYU RODFDAStart: 38-34-1459CZRMTDHI GRANULES 10CCFDAStart: 20-95-3576WSWPKGWPL FUSELOX LUMBARFDAStart: 03-24-2017 [facility] Level DeformityFDAStart: 55-89-6405EGVNLZYQVJ 15CC CRUSHEDFDAStart: 99-78-9907DVJMHDTCO CAPLOX II MED/LGFDAStart: 53-45-3008VLCIRDUF LOCK SCREWSFDA Start: 54-00-0137PHFWFIUT LOCK SCREWSFDAStart: 14-79-1859SPBKVUAZ LOCK SCREWSFDA Start: 65-88-4346WAQCOOAN LOCK SCREWSFDAStart: 21-02-3509QIVATAWBM FUSELOX LUMBARFDAStart: 02-10-7717VEESPCZC RELINE SCREWFDAStart: 90-67-0124DTYECPCO RELINE SCREWFDAStart: 14-43-4109IXEGPOAR RELINE SCREWFDAStart: 03-24-2017 NUVASIVE RELINE SCREWFDAStart: 13-85-3541VFEDUNPV RODFDAStart: 09-11-2017 NUVASIVE RODFDAStart: 77-20-9732LKFSKNLQ GRANULES 10CCFDAStart: 03-24-2017 ALLOGRAFT FUSELOX LUMBARFDAStart: 04-15-8364Teenwj One Level DeformityFDAStart: 31-75-9647CTKKJRNOMR 15CC CRUSHEDFDAStart: 77-12-5791HBOBEZPYL CAPLOX II MED/LG FDAStart: 63-24-3340XWTOJHZU LOCK SCREWSFDAStart: 28-04-7658VQYVGENI LOCK SCREWS FDAStart: 67-43-6071YQEJWJFL LOCK SCREWSFDAStart: 22-44-7646VPWBDTNS LOCK SCREWS FDAStart: 84-02-8869HBDXNFNRB FUSELOX LUMBARFDAStart: 54-70-1775RQJTCCXO RELINE SCREWFDAStart: 66-11-7421OMSSLZCT RELINE SCREWFDAStart: 58-16-1141FFWSGFRV RELINE SCREWFDAStart: 18-49-1951CJEZYOFA RELINE SCREWFDAStart: 03-24-2017 NUVASIVE RODFDAStart: 88-56-7516SKNXGFAA RODFDAStart: 47-89-5184YCXYGDMC GRANULES 10CCFDAStart: 95-08-1431VGSQABLUT FUSELOX LUMBARFDAStart: 03-24-2017 [facility] One Level DeformityFDAStart: 54-39-3450WVXQFYLARZ 15CC CRUSHEDFDAStart: 67-89-7757MURTIBXLJ CAPLOX II MED/LGFDAStart: 16-78-1432UCVWVDPY LOCK SCREWSFDA Start: 14-76-3560WVQNSHDN LOCK SCREWSFDAStart: 60-64-6729QWWWHAGG LOCK SCREWSFDA Start: 71-85-8392ESGQHQWD LOCK SCREWSFDAStart: 82-49-9395YIRZSWLKN FUSELOX LUMBARFDAStart: 40-30-9500PUSHDQHJ RELINE SCREWFDAStart: 34-89-7967TNLIHXFS RELINE SCREWFDAStart: 55-82-5777BTJFOZGQ RELINE SCREWFDAStart: 03-24-2017 NUVASIVE RELINE SCREWFDAStart: 81-34-1842GUOGMLRZ RODFDAStart: 03-24-2017 NUVASIVE RODFDAStart: 75-21-6739BPNGDIHC GRANULES 10CCFDAStart: 03-24-2017 ALLOGRAFT FUSELOX LUMBARFDAStart: 49-92-7167Bqqbyt One Level DeformityFDAStart: 11-15-8255ZGQRJBQPOO 15CC CRUSHEDFDAStart: 60-17-6684QJNAOAUYI CAPLOX II MED/LG FDAStart: 01-31-7409DZLOXWGL LOCK SCREWSFDAStart: 06-06-2404ZKAXKDKN LOCK SCREWS FDAStart: 69-67-0553MGRSHPDR LOCK SCREWSFDAStart: 73-31-1108CAPFFBSL LOCK SCREWS FDAStart: 91-20-0044DHPBCYFOX FUSELOX LUMBARFDAStart: 30-43-8528CDHAQWFZ RELINE SCREWFDAStart: 21-78-9661JNCZGYMI RELINE SCREWFDAStart: 97-20-2089YEOZUNVN RELINE SCREWFDAStart: 57-00-6083VJBXPKBM RELINE SCREWFDAStart: 03-24-2017 NUVASIVE RODFDAStart: 56-44-0016NWRAMQVO RODFDAStart: 22-58-2025EYPRGOTT GRANULES 10CCFDAStart: 42-89-4317NISWWKLHV FUSELOX LUMBARFDAStart: 03-24-2017 [facility] One Level DeformityFDAStart: 97-97-2454OVVVXUMTIR 15CC CRUSHEDFDAStart: 65-24-1849SKNYUYIZL CAPLOX II MED/LGFDAStart: 65-71-4981QQXBIOMA LOCK SCREWSFDA Start: 62-91-6353NESPAXSG LOCK SCREWSFDAStart: 95-21-7937NIDMJQSR LOCK SCREWSFDA Start: 06-85-8555QHUYKSKG LOCK SCREWSFDAStart: 37-59-9884COSFKOVZY FUSELOX LUMBARFDAStart: 98-13-8329EDJIMZUF RELINE SCREWFDAStart: 19-58-3083HVJVEJCR RELINE SCREWFDAStart: 32-37-8993ABJAWSYP RELINE SCREWFDAStart: 03-24-2017 NUVASIVE RELINE SCREWFDAStart: 57-86-5190CWWXMIVO RODFDAStart: 03-24-2017 NUVASIVE RODFDAStart: 96-61-8773KGJABXBD GRANULES 10CCFDAStart: 03-24-2017 ALLOGRAFT FUSELOX LUMBARFDAStart: 85-52-0169Gfuaae One Level DeformityFDAStart: 34-63-5223CCTDKGESOV 15CC CRUSHEDFDAStart: 43-43-1452VSPTWHVBE CAPLOX II MED/LG FDAStart: 30-53-5949PKCKROLJ LOCK SCREWSFDAStart: 49-02-2921MJJLFJOZ LOCK SCREWS FDAStart: 69-43-4202LDNITKTK LOCK SCREWSFDAStart: 33-74-6037NXCHNLRH LOCK SCREWS FDAStart: 66-98-4754WPBKWXAET FUSELOX LUMBARFDAStart: 74-20-0626FBAFLJYZ RELINE SCREWFDAStart: 38-24-8405UDTEQRRF RELINE SCREWFDAStart: 43-56-2274NWUBAKEI RELINE SCREWFDAStart: 92-77-7282NBLHTOME RELINE SCREWFDAStart: 03-24-2017 NUVASIVE RODFDAStart: 10-25-6105VPCSYYAW RODFDAStart: 34-12-1925CMMIJVVR GRANULES 10CCFDAStart: 64-43-7411JNODXGSDP FUSELOX LUMBARFDAStart: 03-24-2017 [facility] One Level DeformityFDAStart: 35-26-3140SCFPXDDYUP 15CC CRUSHEDFDAStart: 40-26-5926ETCZVAOZB CAPLOX II MED/LGFDAStart: 34-42-6704XMFSOCOH LOCK SCREWSFDA Start: 31-83-2930TCBHWLIO LOCK SCREWSFDAStart: 69-59-2319NRPRHNGA LOCK SCREWSFDA Start: 11-58-1658WADWTKSN LOCK SCREWSFDAStart: 64-70-3348WIHAOKNGY FUSELOX LUMBARFDAStart: 83-58-2476IHRQRHMI RELINE SCREWFDAStart: 26-66-4929KEQWTFVH RELINE SCREWFDAStart: 91-08-2519XJKWRRKD RELINE SCREWFDAStart: 03-24-2017 NUVASIVE RELINE SCREWFDAStart: 99-99-5749CXHJLUCR RODFDAStart: 03-24-2017 NUVASIVE RODFDAStart: 43-90-2551JJGTRVBS GRANULES 10CCFDAStart: 03-24-2017 ALLOGRAFT FUSELOX LUMBARFDAStart: 38-08-5720Lyprjs One Level DeformityFDAStart: 88-75-0706VIGSABIKZE 15CC CRUSHEDFDAStart: 59-20-4385ZBPKFLXYJ CAPLOX II MED/LG FDAStart: 48-24-4256TBKUCZVG LOCK SCREWSFDAStart: 83-14-3343KPHOIUUG LOCK SCREWS FDAStart: 54-93-9438UMWAHMDR LOCK SCREWSFDAStart: 75-66-0791CSYHNIAV LOCK SCREWS FDAStart: 35-24-6513UVSKVKMAD FUSELOX LUMBARFDAStart: 18-24-0476ADMNFGCN RELINE SCREWFDAStart: 68-99-6682CVKHDOAC RELINE SCREWFDAStart: 18-09-9091KAOPPRNI RELINE SCREWFDAStart: 66-27-1917OIFMVEWW RELINE SCREWFDAStart: 03-24-2017 NUVASIVE RODFDAStart: 73-93-0339GPLQIAIU RODFDAStart: 70-45-7177HQOPPVEP GRANULES 10CCFDAStart: 22-38-9460CDJWQSXNE FUSELOX LUMBARFDAStart: 03-24-2017 [facility] One Level DeformityFDAStart: 15-71-2546HGPRJJYRSO 15CC CRUSHEDFDAStart: 59-24-5719BMMRAABLR CAPLOX II MED/LGFDAStart: 67-19-5020SNQJNPAD LOCK SCREWSFDA Start: 68-43-7236HFAMHAHE LOCK SCREWSFDAStart: 00-48-1306NVYMOYKK LOCK SCREWSFDA Start: 91-20-8823TWCXVAOS LOCK SCREWSFDAStart: 99-70-9030OYJOIIGKL FUSELOX LUMBARFDAStart: 05-50-0915QEIVVBHE RELINE SCREWFDAStart: 12-92-0383RJHECMKM RELINE SCREWFDAStart: 66-15-0146TBVLLYBD RELINE SCREWFDAStart: 03-24-2017 NUVASIVE RELINE SCREWFDAStart: 11-93-0047LYUNHRHM RODFDAStart: 03-24-2017 NUVASIVE RODFDAStart: 17-86-2550MUQOQZMS GRANULES 10CCFDAStart: 03-24-2017 ALLOGRAFT FUSELOX LUMBARFDAStart: 56-46-1603Zxrbsc One Level DeformityFDAStart: 14-75-8833SAFLDWSOMU 15CC CRUSHEDFDAStart: 83-39-4752JMPWXMXFK CAPLOX II MED/LG FDAStart: 93-58-9754TRVDNHYX LOCK SCREWSFDAStart: 16-28-0604ZVMZSBPV LOCK SCREWS FDAStart: 61-64-0780JUBUAAFU LOCK SCREWSFDAStart: 01-82-2551FLVFCMKI LOCK SCREWS FDAStart: 82-04-2386TEDMVAHEC FUSELOX LUMBARFDAStart: 05-97-1546NCJSSCBU RELINE SCREWFDAStart: 00-37-5098TTVDFPIR RELINE SCREWFDAStart: 36-60-9912HGJBCVTJ RELINE SCREWFDAStart: 34-78-8015FCMRULGM RELINE SCREWFDAStart: 03-24-2017 NUVASIVE RODFDAStart: 07-20-4361RILMJZQN RODFDAStart: 88-32-5590KFENDQBW GRANULES 10CCFDAStart: 46-63-7001HRXIVRHPU FUSELOX LUMBARFDAStart: 03-24-2017 [facility] One Level DeformityFDAStart: 95-19-1852NQCHIULHWN 15CC CRUSHEDFDAStart: 39-46-3403QMENLQCXV CAPLOX II MED/LGFDAStart: 72-30-7714FKPHBBUW LOCK SCREWSFDA Start: 78-71-3330TUKBQUXW LOCK SCREWSFDAStart: 45-02-0592ZSSAGRXI LOCK SCREWSFDA Start: 68-34-6944SEKHSGOC LOCK SCREWSFDAStart: 41-02-1959QIELSWHFC FUSELOX LUMBARFDAStart: 89-98-4542QICIBXQP RELINE SCREWFDAStart: 57-29-1824XDYGFTNJ RELINE SCREWFDAStart: 14-99-0829MTOSJTCF RELINE SCREWFDAStart: 03-24-2017 NUVASIVE RELINE SCREWFDAStart: 53-79-2843YRRVVRTA RODFDAStart: 03-24-2017 NUVASIVE RODFDAStart: 75-17-3038AODWXMSV GRANULES 10CCFDAStart: 03-24-2017 ALLOGRAFT FUSELOX LUMBARFDAStart: 25-59-9422Widqpr One Level DeformityFDAStart: 98-09-9999EHFZYJTAON 15CC CRUSHEDFDAStart: 48-77-7662SKDVXDFRH CAPLOX II MED/LG FDAStart: 87-32-8870VOGQIRIO LOCK SCREWSFDAStart: 53-83-5577VBLELWYY LOCK SCREWS FDAStart: 33-75-2492PKFWLZXX LOCK SCREWSFDAStart: 74-87-7525DRZJRVBT LOCK SCREWS FDAStart: 53-63-2148EZDYEVIYF FUSELOX LUMBARFDAStart: 24-06-2558SAERMJPC RELINE SCREWFDAStart: 66-98-7326JXCMXSUK RELINE SCREWFDAStart: 68-92-9950KRZHKFJL RELINE SCREWFDAStart: 34-10-6933JPPGVYCE RELINE SCREWFDAStart: 03-24-2017 NUVASIVE RODFDAStart: 19-71-2091COTGOEAH RODFDAStart: 31-05-5666JYIABWFD GRANULES 10CCFDAStart: 38-15-9498GJAOXYYMY FUSELOX LUMBARFDAStart: 03-24-2017 [facility] One Level DeformityFDAStart: 72-46-2419DEXSDJCWQU 15CC CRUSHEDFDAStart: 40-33-5345QRZSJTBXB CAPLOX II MED/LGFDAStart: 12-89-0441BFYQMHNA LOCK SCREWSFDA Start: 35-87-5820ZKKGKTPL LOCK SCREWSFDAStart: 69-93-7642QUNQLUDH LOCK SCREWSFDA Start: 06-76-6383UVUKPTUW LOCK SCREWSFDAStart: 03-78-0161IAADBBPYT FUSELOX LUMBARFDAStart: 59-58-0653JFPWSVCG RELINE SCREWFDAStart: 31-58-3647IBZAETTD RELINE SCREWFDAStart: 72-12-2143VLMRONYP RELINE SCREWFDAStart: 03-24-2017 NUVASIVE RELINE SCREWFDAStart: 16-63-3947GMKVJVSE RODFDAStart: 03-24-2017 NUVASIVE RODFDAStart: 29-67-1261NMBPWLKD GRANULES 10CCFDAStart: 03-24-2017 ALLOGRAFT FUSELOX LUMBARFDAStart: 20-39-3755Yqwojj One Level DeformityFDAStart: 03-44-7372JALQXFVMUI 15CC CRUSHEDFDAStart: 25-46-2946INTOZIDWM CAPLOX II MED/LG FDAStart: 66-57-6263RYBSTHGP LOCK SCREWSFDAStart: 84-25-2329WIGHIUAB LOCK SCREWS FDAStart: 23-99-4079RCDSDVUJ LOCK SCREWSFDAStart: 80-79-0650AUOUVUNJ LOCK SCREWS FDAStart: 06-60-4236YSFMKFUYC FUSELOX LUMBARFDAStart: 45-16-6264OFBJRUYL RELINE SCREWFDAStart: 74-92-8922DTHVFPGV RELINE SCREWFDAStart: 34-58-8685YCVPKJSH RELINE SCREWFDAStart: 42-61-3818HTVOQDVP RELINE SCREWFDAStart: 03-24-2017 NUVASIVE RODFDAStart: 86-52-6797OLDIDXMH RODFDAStart: 40-49-6824XBIKOOMX GRANULES 10CCFDAStart: 98-10-5481RQWZOSFMR FUSELOX LUMBARFDAStart: 03-24-2017 [facility] One Level DeformityFDAStart: 51-57-3152YHZRBSPNJE 15CC CRUSHEDFDAStart: 74-25-0880QTDWQJDVD CAPLOX II MED/LGFDAStart: 50-68-1006CPWRSBJQ LOCK SCREWSFDA Start: 57-08-4479LGAYHAMV LOCK SCREWSFDAStart: 88-45-6108EMFJUURQ LOCK SCREWSFDA Start: 26-86-6029ZPVMGAKI LOCK SCREWSFDAStart: 45-28-5523ZGATQFRYR FUSELOX LUMBARFDAStart: 48-14-9762ZGWBNYFP RELINE SCREWFDAStart: 41-83-3300OFRIFDMD RELINE SCREWFDAStart: 20-51-2211KSOYUUVQ RELINE SCREWFDAStart: 03-24-2017 NUVASIVE RELINE SCREWFDAStart: 56-20-0145EDTAJZZQ RODFDAStart: 03-24-2017 NUVASIVE RODFDAStart: 44-43-3653VFODNULW GRANULES 10CCFDAStart: 03-24-2017 ALLOGRAFT FUSELOX LUMBARFDAStart: 77-03-4181Ijppgl One Level DeformityFDAStart: 66-75-1675YDJJESENMP 15CC CRUSHEDFDAStart: 65-63-3927AKBXIHXST CAPLOX II MED/LG FDAStart: 72-66-3789QYUQQSLJ LOCK SCREWSFDAStart: 36-03-8710KUIIFGER LOCK SCREWS FDAStart: 76-32-7270GPBUYWHG LOCK SCREWSFDAStart: 79-81-2934HCLHZFUL LOCK SCREWS FDAStart: 05-44-4155QBOVZZZAU FUSELOX LUMBARFDAStart: 25-46-3751HHDZEDUT RELINE SCREWFDAStart: 69-97-2660UDEGHXJQ RELINE SCREWFDAStart: 72-84-8451NDRBLZUW RELINE SCREWFDAStart: 25-56-8588OBFHNOLX RELINE SCREWFDAStart: 03-24-2017 NUVASIVE RODFDAStart: 62-41-5031OWKOUNHU RODFDAStart: 05-15-4676WVOUUQJQ GRANULES 10CCFDAStart: 81-18-8651VLTJLZSAZ FUSELOX LUMBARFDAStart: 03-24-2017 [facility] One Level DeformityFDAStart: 82-71-4070OOOMFJRDTW 15CC CRUSHEDFDAStart: 98-86-6819OTXUXQXDP CAPLOX II MED/LGFDAStart: 15-15-1341AGUTHNXZ LOCK SCREWSFDA Start: 93-60-8623JLQDSBPU LOCK SCREWSFDAStart: 75-96-4047DYAFZZXQ LOCK SCREWSFDA Start: 14-91-8939VZXEWUAU LOCK SCREWSFDAStart: 98-83-7046KRYBFTVBB FUSELOX LUMBARFDAStart: 30-83-4484AUZMLBTN RELINE SCREWFDAStart: 05-85-4269WCZNLRFZ RELINE SCREWFDAStart: 91-82-5879SYMPCBEO RELINE SCREWFDAStart: 03-24-2017 NUVASIVE RELINE SCREWFDAStart: 74-95-0767BPXOPFOW RODFDAStart: 03-24-2017 NUVASIVE RODFDAStart: 49-86-4427MHIRYIIC GRANULES 10CCFDAStart: 03-24-2017 ALLOGRAFT FUSELOX LUMBARFDAStart: 68-30-1657Sklulk One Level DeformityFDAStart: 36-36-0116TZERFUKTMR 15CC CRUSHEDFDAStart: 63-00-4138IRTKKXKKE CAPLOX II MED/LG FDAStart: 81-49-5975ZPLHXTMT LOCK SCREWSFDAStart: 92-71-7022KWZVOYZC LOCK SCREWS FDAStart: 75-62-3829ZJLOKHUQ LOCK SCREWSFDAStart: 63-42-8405WHKFJKBL LOCK SCREWS FDAStart: 76-15-7956ATHGTJHBX FUSELOX LUMBARFDAStart: 94-74-1467ZFACCKFO RELINE SCREWFDAStart: 22-14-6521RSJPENXH RELINE SCREWFDAStart: 54-34-5859RSBYZICV RELINE SCREWFDAStart: 01-90-9264UAVARJAP RELINE SCREWFDAStart: 03-24-2017 NUVASIVE RODFDAStart: 41-99-3212GIGJIVHD RODFDAStart: 54-62-5875ERHXTFDE GRANULES 10CCFDAStart: 36-24-6308RNVTQJBXL FUSELOX LUMBARFDAStart: 03-24-2017 [facility] One Level DeformityFDAStart: 55-86-2815UHJCAPKVPO 15CC CRUSHEDFDAStart: 15-98-5946UFBUDPKDX CAPLOX II MED/LGFDAStart: 69-31-6182JILSAZXC LOCK SCREWSFDA Start: 45-77-3669QKFYSPXO LOCK SCREWSFDAStart: 82-62-3972GUJCNSMJ LOCK SCREWSFDA Start: 53-73-9839DQMIOAJA LOCK SCREWSFDAStart: 84-40-3845PWMHREXLN FUSELOX LUMBARFDAStart: 26-93-0502UHPWSHGV RELINE SCREWFDAStart: 76-18-3146OSAFPUPQ RELINE SCREWFDAStart: 03-62-4481ZYZFJUZN RELINE SCREWFDAStart: 03-24-2017 NUVASIVE RELINE SCREWFDAStart: 32-30-9782AUSJNALH RODFDAStart: 03-24-2017 NUVASIVE RODFDAStart: 47-15-3172IVRHCEJJ GRANULES 10CCFDAStart: 03-24-2017 ALLOGRAFT FUSELOX LUMBARFDAStart: 16-02-8718Ukrhep One Level DeformityFDAStart: 50-11-9238TOCHIKJTFQ 15CC CRUSHEDFDAStart: 93-36-8533XMZRRSPGM CAPLOX II MED/LG FDAStart: 92-79-3572XQJXCZFM LOCK SCREWSFDAStart: 95-13-6407HJMFLJIY LOCK SCREWS FDAStart: 85-97-0666YJYUBRYO LOCK SCREWSFDAStart: 27-24-1520EDJFXPIR LOCK SCREWS FDAStart: 81-23-9087EDLTROMWZ FUSELOX LUMBARFDAStart: 18-90-6927HTSHDYCR RELINE SCREWFDAStart: 83-46-3503LFAVOIFI RELINE SCREWFDAStart: 98-60-8809NBYONTXU RELINE SCREWFDAStart: 54-06-9461EPQJMFGS RELINE SCREWFDAStart: 03-24-2017 NUVASIVE RODFDAStart: 39-10-6177QYYXNXTE RODFDAStart: 63-03-8343GBMOVJJG GRANULES 10CCFDAStart: 74-88-0749CHHFCIXTY FUSELOX LUMBARFDAStart: 03-24-2017 [facility] One Level DeformityFDAStart: 86-87-6155BHSXWWQKWO 15CC CRUSHEDFDAStart: 12-91-7410FCBPHXSXK CAPLOX II MED/LGFDAStart: 22-67-2962XKMIJNJX LOCK SCREWSFDA Start: 93-51-0347INNSGIFG LOCK SCREWSFDAStart: 92-49-0688PLTMJOMC LOCK SCREWSFDA Start: 60-89-9884WRBTJRFR LOCK SCREWSFDAStart: 26-07-0801WWBCACRTO FUSELOX LUMBARFDAStart: 33-28-5307EXOISKVP RELINE SCREWFDAStart: 79-74-9427HTWYSPJX RELINE SCREWFDAStart: 22-35-2522LZPNXBZN RELINE SCREWFDAStart: 03-24-2017 NUVASIVE RELINE SCREWFDAStart: 80-67-9807FFBKKWIY RODFDAStart: 03-24-2017 NUVASIVE RODFDAStart: 07-85-0166RJCFUBEK GRANULES 10CCFDAStart: 03-24-2017 ALLOGRAFT FUSELOX LUMBARFDAStart: 19-83-0957Nhluxv One Level DeformityFDAStart: 72-64-9666AROANVHYLL 15CC CRUSHEDFDAStart: 20-20-2964VWLNRSEWD CAPLOX II MED/LG FDAStart: 81-45-4684PLVKSDRC LOCK SCREWSFDAStart: 24-68-0170EVRBHOTS LOCK SCREWS FDAStart: 64-58-5379XMBQMHIV LOCK SCREWSFDAStart: 34-66-8619UJEKHMQX LOCK SCREWS FDAStart: 63-74-3407PTZMEMTQZ FUSELOX LUMBARFDAStart: 70-27-4421PGGCDNDO RELINE SCREWFDAStart: 77-64-2364YNRIJCRU RELINE SCREWFDAStart: 69-52-8962YJRNHORU RELINE SCREWFDAStart: 61-60-4829KOCBEPNU RELINE SCREWFDAStart: 03-24-2017 NUVASIVE RODFDAStart: 74-30-9770VVADNTPV RODFDAStart: 21-77-9810WEUYUMNY GRANULES 10CCFDAStart: 66-62-2891CPMUGEFAD FUSELOX LUMBARFDAStart: 03-24-2017 [facility] One Level DeformityFDAStart: 70-71-4524YTDHSZWQYP 15CC CRUSHEDFDAStart: 28-24-2261QGQOGASKQ CAPLOX II MED/LGFDAStart: 44-27-4358ORJYHJRP LOCK SCREWSFDA Start: 12-77-8052WXFVQEII LOCK SCREWSFDAStart: 14-01-3883HMCUDEXD LOCK SCREWSFDA Start: 76-79-0274IVZCDPGV LOCK SCREWSFDAStart: 27-84-1471PLEZFBDRU FUSELOX LUMBARFDAStart: 27-22-8375YJYFBKTC RELINE SCREWFDAStart: 85-53-6455WQOOBSNW RELINE SCREWFDAStart: 91-98-2598JNLAVVQE RELINE SCREWFDAStart: 03-24-2017 NUVASIVE RELINE SCREWFDAStart: 07-62-1757OQYIBHXZ RODFDAStart: 03-24-2017 NUVASIVE RODFDAStart: 73-10-1196MCDVOYPF GRANULES 10CCFDAStart: 03-24-2017 ALLOGRAFT FUSELOX LUMBARFDAStart: 20-52-9386Zhudgq One Level DeformityFDAStart: 93-53-5651VDUUYJUWYA 15CC CRUSHEDFDAStart: 46-26-9902EMGQHIPFO CAPLOX II MED/LG FDAStart: 92-37-1253SUNXGHDB LOCK SCREWSFDAStart: 25-60-6094QJVUSASH LOCK SCREWS FDAStart: 85-75-6558KMGDUQWV LOCK SCREWSFDAStart: 69-58-3796CHHPLKOS LOCK SCREWS FDAStart: 69-91-2937PPXTXHQZT FUSELOX LUMBARFDAStart: 90-76-1630APGHGDCP RELINE SCREWFDAStart: 43-30-1961CXZEDDES RELINE SCREWFDAStart: 01-07-1922UYGNQLQO RELINE SCREWFDAStart: 73-67-3885DOQRPHUG RELINE SCREWFDAStart: 03-24-2017 NUVASIVE RODFDAStart: 36-87-9696AMHNGICM RODFDAStart: 59-17-5557XIPTRGLS GRANULES 10CCFDAStart: 07-66-2037XJFGSEXBC FUSELOX LUMBARFDAStart: 03-24-2017 [facility] One Level DeformityFDAStart: 43-20-5625UYRRCRTKFR 15CC CRUSHEDFDAStart: 40-62-4036TNTELARXX CAPLOX II MED/LGFDAStart: 49-60-0002OQUHTZXD LOCK SCREWSFDA Start: 63-70-9805VXYISUXQ LOCK SCREWSFDAStart: 93-51-4320KVGUOVVU LOCK SCREWSFDA Start: 93-28-8513QGJPLBEC LOCK SCREWSFDAStart: 90-94-1894FXTXGVVUN FUSELOX LUMBARFDAStart: 29-15-2296NARRHGCM RELINE SCREWFDAStart: 88-66-7425LOUUFPZA RELINE SCREWFDAStart: 90-24-9155UEOTMKXF RELINE SCREWFDAStart: 03-24-2017 NUVASIVE RELINE SCREWFDAStart: 84-65-5576LQEJTNKX RODFDAStart: 03-24-2017 NUVASIVE RODFDAStart: 48-65-5338TXKOOCKV GRANULES 10CCFDAStart: 03-24-2017 ALLOGRAFT FUSELOX LUMBARFDAStart: 54-99-9384Lesxvx One Level DeformityFDAStart: 05-98-6356MABXWDVCTU 15CC CRUSHEDFDAStart: 99-01-9502AVLXRJQNL CAPLOX II MED/LG FDAStart: 24-35-8702SXFOPDZZ LOCK SCREWSFDAStart: 94-83-3349ESSYGBQJ LOCK SCREWS FDAStart: 30-49-3476SSTLIUUP LOCK SCREWSFDAStart: 35-38-4028BODMDAOI LOCK SCREWS FDAStart: 43-45-2032ROVDJWXGE FUSELOX LUMBARFDAStart: 34-23-2479SVBBRSRA RELINE SCREWFDAStart: 75-00-2290FQJNIBWX RELINE SCREWFDAStart: 40-07-0844ZGRNTZLB RELINE SCREWFDAStart: 10-68-3664VEVDRSNV RELINE SCREWFDAStart: 03-24-2017 NUVASIVE RODFDAStart: 77-64-2415AKUAKMOR RODFDAStart: 19-02-0714YRRQRKET GRANULES 10CCFDAStart: 35-46-2923YOVYJESEA FUSELOX LUMBARFDAStart: 03-24-2017 [facility] One Level DeformityFDAStart: 41-38-6001QULATBOSKR 15CC CRUSHEDFDAStart: 26-36-8708SGPYRTLFG CAPLOX II MED/LGFDAStart: 42-13-5988JTSLBJRX LOCK SCREWSFDA Start: 48-78-8936ZSZEQMOR LOCK SCREWSFDAStart: 84-47-4376GOSROXGF LOCK SCREWSFDA Start: 79-21-7361LCSIJUQM LOCK SCREWSFDAStart: 03-24-2017 Goals DatePatient GoalDesired Activity/State Functional Status EolaMhyjfcofetIzvnplYdyrxsoy78-81-8377Mzvegbvwbx StatusN/A[facility]2024Functional StatusN/A[facility]08-01-2023Functional StatusN/A [facility]07-16-2022Functional statusPatient is Progressing Toward [facility] Work Phone: Mental Status VqjoSftetzdkkxBnckhdCfrjvzow40-92-5686Fqzgcqhoc functionCognitive Status Patient at [facility] Work Phone: Clinical Notes 04-04-2021 to 05-18-2025 Note Date & BphyEdevYltrudam87-16-8180 Evaluation note* Author [facility]anna Vicente [facility] 20[facility] 3:27pmThe above note written by ___Melanie Conde____ acting as human recorder, note dictated by Dr. Slater .I performed the above HPI, ROS, and Examination. I formulated and dictated the treatment plan and was present for entire encounter. Ayanna Vicente D.O. Author Ayanna Vicente [facility]Octn[facility] 2024 11:41amThe above note written by ___Melanie Conde____ acting as human recorder, note dictated by Dr. Slater .I performed the above HPI, ROS, and Examination. I formulated and dictated the treatment plan and was present for entire encounter. Ayanna Vicente D.O. [facility] Work Phone: [phone] Evaluation note* Author [facility]anna Vicente [facility] 2024 11:41amThe above note written by ___Melanie Conde____ acting as human recorder, note dictated by Dr. Slater .I performed the above HPI, ROS, and Examination. I formulated and dictated the treatment plan and was present for entire encounter. Ayanna Vicente D.O. [facility] Work Phone: 1(460) 479-608910-06-2025 History of Present illness Narrative* PALMA Singletary [...] limited to risks of scarring, darker or small products assembler pigmentary changes, recurrence, incomplete removal and infection. [...] for any new/changing lesions documented in this encounterThree Rivers HealthcareArmigdveqz96-41-0477 Evaluation note* Author [facility] 20[facility] 4:31pmThe above note written by ___Melanie Conde____ acting as human recorder, note dictated by Dr. Slater .I performed the above HPI, ROS, and Examination. I formulated and dictated the treatment plan and was present for entire encounter. Ayanna Vicente D.O. [facility] Work Phone: 1(463) 317-793607-29-2025 Hospital Discharge instructions Patient Education 02/08/2025 09:23:28 [...] your health care provider. General instructions Take udoi-ntu-pkzxqwr and prescription medicines only as told by [...] provider. Document Revised: 03/19/2021 Document Reviewed: 03/19/2021 [employer] Patient Education 2023 [employer]. Follow Up Care 08/16/2024 09:56:41 With:Follow up in Spring Address:Unknown When: Unknown [facility] 07-29-2025 NotePatient Education Obstetrics and Gynecology Overactive [...] health care provider. General instructions ??? Take ubcr-zcb-vsfaxea and prescription medicines only as told by [...] you drink, and whe (more content not included)...[facility]07-09-2025 Telephone encounter Note* Telephone Encounter - [...] medications. I'll see her PRN. [facility] Rivers HealthcareAbrnupzgto45-76-1733 Miscellaneous Notes* Telephone Encounter - Moe Betts [...] I'll see her PRN. documented in this encounterThree Rivers HealthcareFuxdvsywbc96-12-4610 History of Present illness Narrative* Moe Betts [...] urethra 3x per week for UTI prevention, [facility], 178, cm, 08/16/24 9:10:00 EST, Height/Length [...] colonoscopy have been made. documented in this encounterThree Rivers HealthcareKdvquoxqyl98-21-2617 History of Present illness Narrative* Zohaib German MD - 12/17/2024 10:27 AM EDT Images from the original note were not included. 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 There have not been any new health [...] Reviewed on 05/26/2024 Name Date COVID-19 vaccine ([employer]) 03/19/2024, 06/23/2023 COVID-19 vaccine, bivalent ([employer]) 04/18/2022 COVID-19 vaccine, monovalent ([employer]) 06/01/2021, 09/01/2020, 08/11/2020 Physical Exam GENERAL APPEARANCE: [...] which included preparing to see the patient, xkcz-vu-vrkx patient care, completing clinical documentation, obtaining and/or [...] 2024 Time: 10:27 AM documented in this encounterSumma Health06-06-2025 NoteHNO ID: [id number] Author: ZOHAIB GERMAN MD Service: ? 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 There have not been any new health [...] Family History FAMILY HISTORY (more content not included)...[facility] 12-16-2024 Evaluation note* Diagnosis Onset Date [...] 2:43pmOveractive bladderacuteAugust 2024 2:43pmDiabetes chronicAugust 2024 2:43pm [facility] Work Phone: 1(714) 975-902505-07-2025 Telephone encounter Note* Telephone Encounter - Susan Caballero - 11/17/2024 2:35 PM EDT Records faxed to Dr. Silva [phone]. I called Roxie to let her know they were faxed. [facility]05-07-2025 Miscellaneous Notes* Telephone Encounter - Susan Caballero - 11/17/2024 2:35 PM EDT Records faxed to Dr. Silva [phone]. I called Roxie to let her know they were faxed. * Telephone Encounter - Lori Renner - 11/17/2024 11:[address] Zena DREW Received a call from patient caregiver Roxie Leola. She stated that patient would like to cancel her upcoming appointment with Dr Paredes on 11/24 due to patient is going to be following with Dr Silva @ [facility] as this is closer to home for patient. Roxie requested to talk to medical records regarding having records sent to Dr Silva transferred call To Heather Todd. Lori Callahan documented in this encounterSumma Health05-07-2025 Telephone encounter Note * Telephone Encounter - Lori Renner - 11/17/2024 11:[address] Zena DREW Received a call from patient caregiver Roxie Bhagat. She stated that patient would like to cancel her upcoming appointment with Dr Paredes on 11/24 due to patient is going to be following with Dr Silva @ [facility] as this is closer to home for patient. Roxie requested to talk to medical records regarding having records sent to Dr Silva transferred call To Heather Todd. Lori Callahan [facility]04-30-2025 Evaluation note* Author Ayanna Vicente [facility] HospitalAuthoredApril 2024 4:51pmThe above note written by ___Melanie Conde____ acting as human recorder, note dictated by Dr. Slater .I performed the above HPI, ROS, and Examination. I formulated and dictated the treatment plan and was present for entire encounter. Ayanna Vicente D.O. [facility] Work Phone: 1(184) 679-578704-30-2025 Hospital Discharge instructionsAmbulatory Orders* Referral to Hematology Time Frame: 11/10/24, Location: None Selected * Referral to Nephrology Time Frame: 11/10/24, Location: None Selected [facility] Work Phone: 1(622) 714-519202-03-2025 Hospital Discharge instructions Patient Education 08/16/2024 10:04:56 [...] provider. Document Revised: 01/28/2023 Document Reviewed: 01/28/2023 [employer] Patient Education 2023 [employer]. Follow Up Care 08/11/2024 14:41:18 With:JAX BECKMAN, SUSAN Miller, URL Address: [address] [place] [address] When:Within 6 Month(s) [facility] 02-03-2025 NotePatient Education Caregiving Antibiotic Medicine, Adult [...] ??? You have sig (more content not included)...[facility] 08-11-2024 Evaluation note* Author Ayanna Vicente [facility] HospitalAuthoredJanuary 2024 1:46pmThe above note written by ___Melanie Conde____ acting as human recorder, note dictated by Dr. Slater .I performed the above HPI, ROS, and Examination. I formulated and dictated the treatment plan and was present for entire encounter. Ayanna Vicente D.O. [facility] Work Phone: [phone]) 770-853101-27-2025 History of Present illness Narrative* Esvin Dubon [...] oriented to person, place and time. Previous [place] cognitive assessment: 29/30 Language is fluent without [...] , wrist extensors , wrist flexor , wood router hand strength 5/5. LUE Strength deltoid , biceps , triceps , wrist extensors , wrist flexor , wood router hand strength 5/5. RLE Strength illopsoas, quadriceps, tibialis [...] knee reflex 0. Hdz's sign negative. Coordination: Pdhtfi-rr-bpcz testing is normal Rapid alternating movements are [...] on 06/22/2024: TSH 2.632 (wnl), B12 721 [place] cognitive assessment at [facility] on 06/17/2024: MRI of the brain at [facility] on 07/04/18: Mild age-related changes and [...] health issues documented in this encounterThree Rivers HealthcarePlgtuljuyx56-36-6827 History of Present illness Narrative* Enrique Hammonds, [...] No history of alcohol/substance abuse. Reformed smoker. [place] language [place]. Completed a master's degree. 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 and currently lives alone. Because of one [...] PRN incontinence, #90 tab(s), Refills(s) 3, Pharmacy: [facility], 178, cm, 02/11/23 11:43:00 EDT, [...] of this individual. Please contact me with [employer] at [phone]. documented in this encounterThree Rivers HealthcareYjxacxnbxe55-80-7720 History of Present illness Narrative* Moe Betts, [...] the scope. documented in this encounterThree Rivers HealthcareDpeifayxkx61-88-1980 History of Present illness Narrative* Babita Guillaume [...] , wrist extensors , wrist flexor , wood router hand strength 5/5. LUE Strength deltoid , biceps , triceps , wrist extensors , wrist flexor , wood router hand strength 5/5. RLE Strength illopsoas, quadriceps, tibialis [...] knee reflex 0. Hdz's sign negative. Coordination: Jhzhjy-rh-ncbi testing and rapid alternating movements are normal Gait: Normal Review and summary of old records: [place] cognitive assessment at [facility] on 06/17/2024: Assessment/Plan Diagnoses [...] health issues documented in this encounterThree Rivers HealthcareYvydlvynuq70-94-3070 NoteHNO ID: [id number] Author: YOUNG HERRERA LPN Service: ? Author Type: LICENSED NURSE Type: Progress Notes Filed: 06/08/2024 13:05 Note Text: Eye exam for Plaquenil toxicity received from [facility] . Exam date was 06/07/2024. Exam shows no signs of Plaquenil toxicity. Forms sent for scanning.[facility]11-26-2024 History of Present illness Narrative* Young Herrera LPN - 06/08/2024 1:05 PM EST Eye exam for Plaquenil toxicity received from [facility] . Exam date was 06/07/2024. Exam shows no signs of Plaquenil toxicity. Forms sent for scanning. documented in this encounterSumma Health11-13-2024 Instructions* Patient Instructions* Chad Freitas MD - 05/26/2024 2:09 PM EST Labs today F/u in 6 months documented in this encounterSumma Health11-13-2024 History of Present illness Narrative* Chad Freitas MD - 05/26/2024 2:00 PM EST Images from the original note were not included. PATIENT NAME: Kathy Washburn CLINIC NO.: [id number] ATTENDING PHYSICIAN: Chad Freitas MD DATE OF [...] sweats - Did mammogram last week at [facility]. - Scheduled to see [employer] Designer PAST MEDICAL HISTORY Diagnosis Date Depression Diabetes [...] Range Status 08/08/2023 2.0 % Final Abs Edgar Date Value Ref Range Status 08/08/2023 0.39 [...] do not hesitate to contact me at [phone]. Chad Freitas MD Hematology/Medical Oncology [facility] aMnuel spent a total of 20 minutes on the date of the service which included preparing to see the patient, etqj-et-cwkv patient care, completing clinical documentation, obtaining and/or reviewing separately obtained history, counseling and educating the patient/family/caregiver, and ordering medications, tests, or procedures. CC: Ayanna Vicente DO documented in this encounterSumma Health11-13-2024 NoteHNO ID: [id number] Author: CHAD FREITAS MD Service: ? Author Type: Physician Type: Progress Notes Filed: 05/26/2024 14:41 Note Text: PATIENT NAME: Kathy Washburn CLINIC NO.: [id number] ATTENDING PHYSICIAN: Chad Freitas MD DATE OF [...] sweats - Did mammogram last week at [facility]. - Scheduled to see Fuel Efficient Automobile Design[employer] PAST MEDICAL HISTORY Diagnosis Date Depression Diabetes [...] Date Value Ref Range (more content not included)...[facility] 05-17-2024 NoteHNO ID: [id number] Author: ZOHAIB GERMAN MD Service: ? Author Type: Physician Type: Progress Notes Filed: 05/17/2024 13:34 Note Text: Rheumatology Outpatient Clinic Date of Service: 05/17/2024 Patient: Kathy Washburn Medical Record: [id number] Primary Care Physician: Ayanna Vicente DO Last Rheumatology visit: None at [facility] Referring Provider: No referring provider defined for [...] unit/mL injection Inject subcutaneously (more content not included)...[facility]11-04-2024 History of Present illness Narrative* Zohaib German MD - 05/17/2024 12:56 PM EST Images from the original note were not included. Rheumatology Outpatient Clinic Date of Service: 05/17/2024 Patient: Kathy Washburn Medical Record: [id number] Primary Care Physician: Ayanna Vicente DO Last Rheumatology visit: None at [facility] Referring Provider: No referring provider defined for [...] Reviewed on 07/19/2022 Name Date COVID-19 vaccine ([employer]) 03/19/2024, 06/23/2023 COVID-19 vaccine, bivalent ([employer]) 04/18/2022 COVID-19 vaccine, monovalent ([employer]) 06/01/2021, 09/01/2020, 08/11/2020 Physical Exam GENERAL APPEARANCE: [...] complication, with long-term current use of insulin([facility]) Plan Orders this visit: Office Visit [...] which included preparing to see the patient, cyzr-jh-lvrd patient care, completing clinical documentation, obtaining and/or [...] 2024 Time: 12:56 PM documented in this encounterSumma Health10-29-2024 Hospital Discharge instructionsAmbulatory Orders* Referral to Neurology Time Frame: 05/11/24, Location: [facility] Work Phone: 1(410) 688-287308-26-2024 Evaluation note* Author Ayanna Vicente [facility] 2023 3:24pmThe above note written by ___Melanie Conde____ acting as human recorder, note dictated by Dr. Slater .I performed the above HPI, ROS, and Examination. I formulated and dictated the treatment plan and was present for entire encounter. Ayanna Vicente D.O. Author Ayanna Vicente [facility] 2023 9:11amThe above note written by ___Melanie Conde____ acting as human recorder, note dictated by Dr. Slater .I performed the above HPI, ROS, and Examination. I formulated and dictated the treatment plan and was present for entire encounter. Ayanna Vicente D.O. [facility] Work Phone: 1(411) 945-200008-26-2024 Evaluation note* Author Ayanna Vicente [facility] 2023 3:24pmThe above note written by ___Melanie Conde____ acting as human recorder, note dictated by Dr. Slater .I performed the above HPI, ROS, and Examination. I formulated and dictated the treatment plan and was present for entire encounter. Ayanna Vicente D.O. Author [facility]anna [facility] 2023 10:47amThe above note written by ___Melanie Conde____ acting as human recorder, note dictated by Dr. Slater .I performed the above HPI, ROS, and Examination. I formulated and dictated the treatment plan and was present for entire encounter. Ayanna Vicente D.O. [facility] Work Phone: 1(697) 511-846308-26-2024 Evaluation note* Author Ayanna [facility] 2023 3:24pmThe above note written by ___Melanie Conde____ acting as human recorder, note dictated by Dr. Slater .I performed the above HPI, ROS, and Examination. I formulated and dictated the treatment plan and was present for entire encounter. Ayanna Vicente D.O. Author Ayanna Vicente [facility] 2023 3:30pmThe above note written by ___Melanie Conde____ acting as human recorder, note dictated by Dr. Slater .I performed the above HPI, ROS, and Examination. I formulated and dictated the treatment plan and was present for entire encounter. Ayanna Vicente D.O. Author Ayanna Vicente [facility] 2023 10:47amThe above note written by ___Melanie Conde____ acting as human recorder, note dictated by Dr. Slater .I performed the above HPI, ROS, and Examination. I formulated and dictated the treatment plan and was present for entire encounter. Ayanna Vicente D.O. [facility] Work Phone: 1(718) 487-828408-26-2024 Evaluation note* Author Ayanna [facility] 2023 2:24pmThe above note written by ___Melanie Conde____ acting as human recorder, note dictated by Dr. Slater .I performed the above HPI, ROS, and Examination. I formulated and dictated the treatment plan and was present for entire encounter. Ayanna Vicente D.O. Author Ayanna Vicente [facility] 2:30pmThe above note written by ___Melanie Conde____ acting as human recorder, note dictated by Dr. Slater .I performed the above HPI, ROS, and Examination. I formulated and dictated the treatment plan and was present for entire encounter. Ayanna Vicente D.O. Author Ayanna Vicente [facility] 2023 9:47amThe above note written by ___Melanie Conde____ acting as human recorder, note dictated by Dr. Slater .I performed the above HPI, ROS, and Examination. I formulated and dictated the treatment plan and was present for entire encounter. Ayanna Vicente D.O. [facility] Work Phone: 1(431) 705-310108-13-2024 Hospital Discharge instructions Patient Education 02/24/2024 10:42:26 [...] your health care provider. General instructions Take qkas-szp-fjjltqr and prescription medicines only as told by [...] provider. Document Revised: 03/19/2021 Document Reviewed: 03/19/2021 [employer] Patient Education 2022 [employer]. Follow Up Care 02/11/2023 12:11:14 With:JAX BECKMAN, SUSAN Miller, URL Address: [address] [place] [address] [id number] When: Unknown Comments:6 mos (no labs) [facility] [place] 08-13-2024 NotePatient Education Obstetrics and Gynecology [...] health care provider. General instructions ? Take ndsv-pyz-aiysyvz and prescription medicines only as told by [...] help your health care (more content not included)...[facility]07-25-2024 Evaluation note* Author Ayanna Vicente [facility] 2023 9:11amThe above note written by ___Melanie Conde____ acting as human recorder, note dictated by Dr. Slater .I performed the above HPI, ROS, and Examination. I formulated and dictated the treatment plan and was present for entire encounter. Ayanna Vicente D.O. [facility] Work Phone: 1(861) 677-237204-09-2024 Evaluation note* Author Ayanna Vicente [facility] 2023 4:11pmThe above note written by ___Melanie Conde____ acting as human recorder, note dictated by Dr. Slater .I performed the above HPI, ROS, and Examination. I formulated and dictated the treatment plan and was present for entire encounter. Ayanna Vicente D.O. [facility] Work Phone: 1(191) 317-367502-15-2024 History of Present illness Narrative* Butch Luquenthal, [...] 150 Interested in diabetic shoes/inserts Dispensed Kandy [id number] in Purple, size 11 M on 04/11/22. [...] were noted. documented in this encounterThree Rivers HealthcareFkyavcebec12-75-0820 Evaluation note* Encounter Date Diagnosis Assessment Notes [...] and sacroiliac steroidal injection.Refer the patient to [facility] for aqua therapy. Discuss with primary care physician, Dr. Vicente, about prescribing a steroid prednisone for temporary relief during the patient's cruise, in the event unable to see painmanagment before vacation. Order a lidocaine patch for the patient to useon the sacroiliac and hip area for pain relief.Recommend yzud-grj-zhbsgko Thermacare or heat patches to use alongside the lidocaine patch. 3. 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 Monitor the degeneration and consider a preventative approach. Encourage the patient to take Tylenol arthritis for overall help. 4. Bone density: - Plan: Dexa scan within normal limits. Jul,ain in left hip (ICD-10 - M25.552) Jul,Sacroiliac inflammation (ICD-10 - M46.1) Jul,ervical pain (ICD-10 - M54.2) Jul,DD (degenerative disc disease), lumbar (ICD-10 - M51.36) [facility] Other 01-03-2024 Evaluation note* Encounter Date Diagnosis [...] She will continue to monitor her memory. [facility] Other 10-03-2023 Evaluation note* Encounter Date Diagnosis [...] questions she has about immunizations were answered. [facility] Other 10-02-2023 Evaluation note* Encounter Date Diagnosis Assessment Notes Treatment Notes Treatment Clinical Notes Apr, Insomnia (ICD-10 - G47.00) Apr,Neuropathy (ICD-10 - G62.9) [facility] Other 08-15-2023 Evaluation note* Encounter Date Diagnosis [...] PT. Feb,Lumbar disc disease (ICD-10 - M51.9) [facility] Other 08-01-2023 Hospital Discharge instructions Patient Education [...] your health care provider. General instructions Take qojr-qvt-ebsdmmo and prescription medicines only as told by [...] provider. Document Revised: 03/19/2021 Document Reviewed: 03/19/2021 [employer] Patient Education 2022 [employer]. Follow Up Care 01/23/2023 15:26:59 With:SUSAN RANDOLPH PA-C, URL Address: [address] [place] [address] When: Unknown [facility] [place] 07-28-2023 History of Present illness Narrative* Santos Lares MD - 02/07/2023 1:38 PM EDT Images from the original note were not included. PATIENT NAME: Kathy Washburn CLINIC NO.: [id number] ATTENDING PHYSICIAN: Santos Lares MD DATE OF [...] Range Status 07/19/2022 5.0 % Final Abs Edgar Date Value Ref Range Status 07/19/2022 0.84 [...] do not hesitate to contact me at [phone]. Santos Lares MD Hematology/Medical Oncology [facility] [place] [facility] spent a total of 30 minutes on the date of the service which included preparing to see the patient, pybe-au-xhxs patient care, completing clinical documentation, obtaining and/or reviewing separately obtained history, counseling and educating the patient/family/caregiver, and ordering medications, tests, or procedures. CC: Ayanna Vicente DO documented in this encounterSumma Health06-27-2023 Evaluation note* Encounter Date Diagnosis Assessment Notes [...] prescription of Cipro when she was in [place], she finds that her symptoms seem to happen when she is traveling. We discussed her seeing Dr. El for evaluation due to recurrent urine infections. She voices that she has not contacted that office but will do this. Dec,Other1:43 PM - 1:59 PM [facility] Other 06-26-2023 Evaluation note* Encounter Date Diagnosis Assessment Notes Treatment Notes Treatment Clinical Notes Dec, Hyperlipidemia (ICD-10 - E78.5) [facility] Other 04-05-2023 Evaluation note* Encounter Date Diagnosis Assessment Notes Treatment Notes Treatment Clinical Notes Oct, Neuropathy (ICD-10 - G62.9) [facility] Other 03-22-2023 Evaluation note* Encounter Date Diagnosis Assessment Notes Treatment Notes Treatment Clinical Notes Sep, Insomnia (ICD-10 - G47.00) [facility] Other 03-22-2023 Evaluation note* Encounter Date Diagnosis [...] to see her blood sugars below 90. Corn sugar readings are in the 120's. She [...] discussion for her to have with her fur glazer. Sep,Insomnia (ICD-10 - G47.00)We discussed the side [...] has not driven past any local towns ([facility]). She did have a cardiac [...] substance abuse treatments are being prescribed. 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 She has an upcoming trip planned. She voices that Dr. Redding retired and [facility] She does need to [...] had an MRI of her neck done. [facility] Other [id number] Miscellaneous Notes* Telephone Encounter - Santos Lares MD - 07/22/2022 12:41 PM EST Thanks * Telephone Encounter - Lori Monzon [facility] - 07/22/2022 11:[address] Ly office to check on this referral spoke with Leola. She states they did receive this referral and when they called patient and offered her an appointment on 08/14 patient declined appointment and stated she would call her PCP. Lori Monzon [facility] I had already called [facility] office before [...] RN * Telephone Encounter - [facility] - 07/19/2022 2:21 PM EST Records faxed to Dr. Ly. * Telephone Encounter - Susana Grant - 07/19/2022 1:21 PM EST Referral to Dr. Ly for Right ear pain. Heather/Royer: Can you please send information and follow up? Manuel Romero put information in your mailbox forreferral. Thank you! Susana Grant documented in this encounterSumma Health01-06-2023 History of Present illness Narrative* Santos Lares MD - 07/19/2022 12:34 PM EST PATIENT NAME: Kathy Washburn CLINIC NO.: [id number] ATTENDING PHYSICIAN: Santos Lares MD DATE OF [...] 11.45 (H) 1.00 - 4.00 k/uL Final Edgar% Date Value Ref Range Status 07/19/2022 5.0 % Final Abs Edgar Date Value Ref Range Status 07/19/2022 0.84 [...] do not hesitate to contact me at [phone]. Santos Lares MD Hematology/Medical Oncology [facility] [place] [facility] spent a total of 30 minutes on the date of the service which included preparing to see the patient, qbqp-en-enat patient care, completing clinical documentation, obtaining and/or reviewing separately obtained history, counseling and educating the patient/family/caregiver, and ordering medications, tests, or procedures. Medical Decision Making: Medical Decision Making Level: 1 - N/A CC: Ayanna Vicente DO documented in this encounterSumma Health01-06-2023 Nurse Note* Lluvia Samuel MA - 07/19/2022 12:20 PM EST Patient would like to ask you about her right ear, it is painful to touch, her head also hurts and also has Left side pain. Lluvia Samuel MA documented in this encounterSumma Health11-18-2022 Evaluation note* Encounter Date Diagnosis Assessment Notes Treatment Notes Treatment Clinical Notes May, Cystitis (ICD-10 - N30.90) [facility] Other 10-11-2022 Evaluation note* Encounter Date Diagnosis Assessment Notes Treatment Notes Treatment Clinical Notes Apr, BMI 31.0-31.9,adult (ICD-10 - Z6 8.31) [place] [facility] Other 10-06-2022 History of Present illness Narrative* Santos Lares MD - 04/18/2022 11:59 AM EDT PATIENT NAME: Kathy Washburn CLINIC NO.: [id number] ATTENDING PHYSICIAN: Santos Lares MD DATE OF [...] 9.37 (H) 1.00 - 4.00 k/uL Final Edgar% Date Value Ref Range Status 04/04/2022 5.0 % Final Abs Edgar Date Value Ref Range Status 04/04/2022 0.67 [...] do not hesitate to contact me at [phone]. Santos Lares MD Hematology/Medical Oncology [facility] [place] I spent a total of 30 minutes on the date of the service which included preparing to see the patient, cjuo-yu-gvsr patient care, completing clinical documentation, obtaining and/or reviewing separately obtained history, counseling and educating the patient/family/caregiver, and ordering medications, tests, or procedures. Medical Decision Making: Medical Decision Making Level: 1 - N/A CC: Ayanna Vicente DO documented in this encounterSumma Health09-28-2022 Evaluation note* Encounter Date Diagnosis Assessment Notes Treatment Notes Treatment Clinical Notes Mar, Neuropathy (ICD-10 - G62.9) [facility] Other 09-23-2022 Miscellaneous Notes* Telephone Encounter - Santos Lares MD - 04/05/2022 5:06 PM EDT Spoke to the patient and answered her questions * Telephone Encounter - Niurka Hood RN - 04/05/2022 4:08 PM EDT Pt notified and verbalizes understanding. Pt would like to speak w/ you before her next appointment. Asks that you call her @ [phone] when you have time. Thanks! Niurka Hood [...] no one picked up documented in this encounterSumma Health09-22-2022 History of Present illness Narrative* Santos Lares MD - 04/04/2022 11:32 AM EDT PATIENT NAME: Kathy Washburn CLINIC NO.: [id number] ATTENDING PHYSICIAN: Santos Lares MD DATE OF [...] Santos Lares M.D. Hematology/Medical Oncology [facility] [place] [phone] CC: Ayanna Vicente DO documented in this encounterSumma Health09-20-2022 Evaluation note* Encounter Date Diagnosis Assessment Notes [...] hurt. She has not followed with any rn document improvement specialist. She saw Dr. Akins in [...] would like to refer her to a tinning machine set up operator for evaluation, and she agrees. A [...] if needed. She can also see a highway painter helper to discuss injections. She voices that she saw Dr. Guillaume in the past for migraines and would like to see Dr. Morales for evaluation. For now she will try to take the pain medication more often and see if this provides her with better relief and will continue to monitor. I will refer her to Dr. Morales for evaluation. 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 She voices understanding. Mar,Encounter for screening [...] find out where Dr. Milner went in [place] and then will refer her back to Dr. Milner to discuss a colonoscopy. Mar,Weight loss (ICD-10 - R63.4)She has lost 1.5 pounds since last seen. [facility] Other 09-06-2022 Evaluation note* Encounter Date Diagnosis Assessment Notes Treatment Notes Treatment Clinical Notes Mar, Diabetes type 2, uncontrolled (I CD-10 - E11.65) Mar,Hypertension (ICD-10 - I10) Mar,Neuropathy (ICD-10 - G62.9) [facility] Other 08-26-2022 Evaluation note* Encounter Date Diagnosis Assessment Notes Treatment Notes Treatment Clinical Notes Feb, Diabetes type 2, uncontrolled (I CD-10 - E11.65) [facility] Other 07-27-2022 Evaluation note* Encounter Date Diagnosis [...] taking Ambien, she is taking Melatonin. 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 [facility] Other 06-27-2022 Evaluation note* Encounter Date Diagnosis Assessment Notes Treatment Notes Treatment Clinical Notes Dec, Dysphagia (ICD-10 - R13.10) [facility] Other 06-27-2022 Evaluation note* Encounter Date Diagnosis Assessment Notes Treatment Notes Treatment Clinical Notes Dec, Other spondylosis wi th radiculopathy, lumbar region (ICD-10 - M47.26) [facility] Other 06-16-2022 Evaluation note* Encounter Date Diagnosis [...] - M20.42) Dec,Foot deformity (ICD-10 - M21.969) [facility] Other 06-08-2022 Evaluation note* Encounter Date Diagnosis Assessment Notes Treatment Notes Treatment Clinical Notes Dec, Peripheral edema (ICD-10 - R60.9 ) [facility] Other 06-06-2022 Evaluation note* Encounter Date Diagnosis Assessment Notes Treatment Notes Treatment Clinical Notes Dec, History of colon polyps (ICD-10 - Z86.010) Dec,Irritable bowel syndrome with diarrhea (ICD-10 - K58.0)MAY USE IMODIUM NEEDED PT TO REPORT PROGRESS [facility] Other 05-02-2022 Evaluation note* Encounter Date Diagnosis Assessment Notes Treatment Notes Treatment Clinical Notes November, Cystitis (ICD-10 - N30.90) [facility] Other 03-22-2022 Evaluation note* Encounter Date Diagnosis [...] [place] last week she had congestion and wascoughing [...] potential. She has not gone to the [facility]. She voices thatshe never got a call back from that center and did not pursue this because she got involved with a urologist then developed bowel issues. She voices that she will follow up with the [facility] and Dr. Regan for this issue. Sep,ladder [...] were reviewed. Sep,ther2:54 PM - 3:20 PM [facility] Other 03-21-2022 Evaluation note* Encounter Date Diagnosis Assessment Notes Treatment Notes Treatment Clinical Notes Sep, Cough (ICD-10 - R05.9) [facility] Other 03-03-2022 Evaluation note* Encounter Date Diagnosis [...] I did recommend that she see a edge grinder machine for evaluation to discuss these issues further, [...] is having. Sep,ther9:29 AM - 9:49 AM [facility] Other 01-05-2022 Evaluation note* Encounter Date Diagnosis Assessment Notes Treatment Notes Treatment Clinical Notes Jul, Neuropathy (ICD-10 - G62.9) [facility] Other 12-06-2021 Evaluation note* Encounter Date Diagnosis [...] refer her to the spine center in [place] but she did not pursue this. We [...] - N30.90) She currently follows with a engineering systems analyst. She also saw Dr. Redding for evaluation and he did a procedure on her bladder to help with bladder leakage, she was supposed to see him again but he was sick soshe is trying to get in to see either him or another doctor such as Dr. Peterson or Dr. Gleason, she does not want to see his PA or JUDICIAL CLERK. She gets a pain in her vaginal area, describes it as a cut but now it feels as if it is going up higher. When she went to asbestos siding mechanic bahai yesterday she felt like someone cut [...] the future. Jun,Other2:53 PM - 3:23 PM [facility] Other 10-12-2021 Evaluation note* Encounter Date Diagnosis Assessment Notes Treatment Notes Treatment Clinical Notes Apr, Neuropathy (ICD-10 - G62.9) [facility] Other 09-22-2021 Evaluation note* Encounter Date Diagnosis [...] Dr. Regan is referring her to the [facility] and she is seeing Oscar [...] the kidneys. She has never seen a engraver block before. Her BUN is 40. Creatinine is [...] 6.2. We discussed referring her to a tinning machine set up operator for evaluation and to discuss this further but instead we will repeat lab in one month and if her level is this high or higher then we will do a referral through the [facility] in [place]. Mar,Knee pain (ICD-10 - M25.569) She was [...] attending physical therapy and will see the [facility] soon. Mar,Weight loss (ICD-10 - R63.4) She has lost 5.5 pounds since last seen. She voices that she is trying to lose weight slowly. Encouraged her to continue with what she is doing. Module[facility] Other Evaluation + Plan note Future Appointments Appointment Date:02/24/2024 10:00:00 AM Scheduled Provider:SUSAN RANDOLPH PA-C Location:[facility] Appointment Type:URO Office Visit [facility] evaluation + Plan note Future Appointments Appointment Date:02/14/2025 01:20:00 PM Scheduled Provider:SUSAN RANDOLPH PA-C Location:[facility] Appointment Type:URO Office Visit [facility] evaluation + Plan note Future Appointments Appointment Date:10/27/2025 10:20:00 AM Scheduled Provider:JOSE Stewart APRN, [place] Location:[facility] Appointment Type:URO Office Visit [facility] evaluation note* Diagnosis Pain in both knees, unspecified chronicity- Primary documented in this encounter [facility] noteNo InformationPortsmouth [facility] Other Evaluation note* Diagnosis Onset Date Resolution Status Abrasion acuteAcute hypotensionacuteAcute UTIacuteAKI (acute kidney injury)acuteContusion of leg, rightacuteFallacuteMinor closed head injuryacuteRight wrist fracture acuteSepsisacuteDiabeteschronicAcute UTIacuteChronic back painacuteDepression acuteDiabetic neuropathyacuteFallacuteHematoma of right lower legacuteImpaired mobility and activities of daily livingacuteMinor closed head injuryacuteRight wrist fractureacuteDiabeteschronicHypertensionchronicHypothyroidismmunson healthcare cadillac hospitalic [facility] Work Phone: Evaluation note* Diagnosis Lymphocytosis- Primary Lymphocytosis (symptomatic) documented in this encounter [facility] note* Diagnosis CLL (chronic lymphocytic leukemia) (HCC)- Primary Chronic lymphoid leukemia, without mention of having achieved remission documented in this encounter [facility]* Diagnosis Onset Date Resolution Status Acute UTI acuteChronic back painacuteDepressionacuteDiabetic neuropathyacuteFallacute Hematoma of right lower legacuteImpaired mobility and activities of daily living acuteMinor closed head injuryacuteRight wrist fractureacuteDiabeteschronic HypertensionchronicHypothyroidismHarrison Community Hospital Work Phone: Evaluation note* Diagnosis CLL (chronic lymphocytic leukemia) (HCC)- Primary Chronic lymphoid leukemia, without mention of having achieved remission Right ear pain Otalgia, unspecified Rib pain Chest pain, unspecified Axillary adenopathy Enlargement of lymph nodes Other signs and symptoms in breast Encounter for screening mammogram for malignant neoplasm of breast Other screening mammogram documented in this encounter [facility]Evaluchristiana [facility] noteNo assessment information [facility] Work Phone: Evaluation note* Diagnosis CLL (chronic lymphocytic leukemia) (HCC)- Primary Chronic lymphoid leukemia, without mention of having achieved remission documented in this encounter [facility]Evaluch[facility] hospital note* Diagnosis Onychomycosis- Primary Dermatophytosis of nail 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) Pain in both feet documented [facility] this encounter [facility]* Diagnosis Onset Date Resolution Status Chronic lymphocytic leukemia acuteCystitisacuteDiabetes type 2, uncontrolledacuteLumbar disc disease with radiculopathyacuteNeuropathyacuteOther abnormal blood chemistryacute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acutePeripheral edemaacuteHLD (hyperlipidemia)chronic HypertensionchronicHypothyroidismchronicInsomniachronCrystal Clinic [facility] Work Phone: Evaluation note* Diagnosis Onset Date Resolution Status Right otitis media acuteCystitisacuteDiabetes type 2, uncontrolledacuteOther spondylosis with radiculopathy, lumbar regionacuteRheumatismacuteInsomniaSalem Regional Medical Center Work Phone: Evaluation note* Diagnosis Primary osteoarthritis involving multiple joints- Primary Fibromyalgia Mylagia and myositis, unspecified Type 2 diabetes mellitus without complication, with long-term current use of insulin ([facility]) [facility]* Diagnosis CLL (chronic lymphocytic leukemia) (HCC)- Primary Chronic lymphoid leukemia, without mention of having achieved remission documented [facility]* Diagnosis Cognitive impairment- Primary Unspecified persistent [...] radiculopathy, lumbar regionacute August 11, 2024 1:16pm [facility] Work Phone: Evaluation note* Diagnosis Onset Date Resolution Status Admit Date Chronic kidney disease, stage 3b acuteApril 2024 3:41pmChronic lymphocytic leukemiaacuteApril 2024 3:41pmCystitisacuteApril 2024 3:41pmDiabetesacuteApril 2024 3:41pm Other spondylosis with radiculopathy, lumbar regionacuteApril 2024 3:41pm Peripheral edemaacuteApril 2024 3:41pmPremature beatacuteApril 2024 3:41pmRheumatismacuteApril 2024 3:41pmHLD (hyperlipidemia)chronicApril 2024 3:41pmHypertensionchronicApril 2024 3:41pmHypothyroidismchronic November 10, 2024 3:41pm [facility] Work Phone: Evaluation note* Diagnosis Fibromyalgia- Primary Mylagia and myositis, unspecified Primary osteoarthritis involving multiple joints Type 2 diabetes mellitus without complication, with long-term current use of insulin (HCC) Long-term use of Plaquenil Encounter for long-term (current) use of other medications [facility]* Diagnosis Diarrhea, unspecified type- Primary documented in this encounter [facility] HealthcareEvaluation note* Diagnosis Hill angioma- Primary Seborrheic keratosis Actinic keratosis Lentigines Lipoma of right upper extremity documented in this encounter [facility] HealthcareHistory general Narrative - Reported* Type Description Date Medical History pelvic exam done Medical Luuuzzw1590 mammogram-normalMedical Dxmjsvu9791 colonoscopyMedical Esgevfz1795 CT scan doneMedical Obumyhh8957 eye examMedical History Zostavax doneMedical Wpdbwzs19-0857 Flu/H1N1 vaccineMedical History-2010 mammogramMedical History-2010 DEXA scanMedical HistoryFollows with Dr. Betts yearlyMedical Mhtpqhw2-5-6424 Left femur FRMedical Dcnmkxb1-9-6761 [facility] [place] stress test-normal ([facility])Medical History Mammogram 2015 - Dr. FritzSurgical Historybilateral inguinal hernia ouavlr4326 Surgical Historyleft iyyu6015Hwdrvwak Chtximcahqkoapxhaue3746Squucxku History abdominal vmodwf3678Adwqnact Historyhernia behpkl4401Teeimthb History fdjubzncsqzi5900Icmhamxg Historyright knee replacement (Dr Antonio)1-2009 Surgical Historyleft total knee (Dr Haque)2-2011Surgical Historybil inguinal hernia efrhjs1798Dwyvzibv Historylt jhob0735Kziikwfa Historyright knee replacement- Dr. Easton-2009Surgical Historyleft total knee-Dr. Haque2-[address] Frias03/24/17Surgical HistoryColonoscopy, Dr. Betts, colon pipfqx2-9-1298Foabtfdbuzmftva Historysee above ModuleQ Other History general Narrative - Reported* Type Description Date Medical History -2007 pelvic exam done Medical Olxirry4605 mammogram-normalMedical Raboabp4077 colonoscopyMedical Iahvhix7357 CT scan doneMedical Bguheok0576 eye examMedical History3-2009 Zostavax doneMedical Phkhvla17-6268 Flu/H1N1 vaccineMedical History1-2010 mammogramMedical History1-2010 DEXA scanMedical HistoryFollows with Dr. Betts yearlyMedical Dopxtlk5-7-5854 Left femur FRMCMedical Lbffldl7-6-7612 Chest x-ray FRMedical History7-2003 stress test-normal ([facility])Medical History Mammogram 2015 - Dr. FritzSurgical Historybilateral inguinal hernia zlgjho3415 Surgical Historyleft kfet7180Wcolzoue Tacsutfnbqxfqvhifnj4152Mqmhfkdd History abdominal rrnszi7914Qsbymxka Historyhernia ssfnva6726Mgitzjvp History wfimqalvlhwp3375Zovrrwmn Historyright knee replacement (Dr Antonio)1-2009 Surgical Historyleft total knee (Dr Haque)2-2011Surgical Historybil inguinal hernia rvfiqd6780Cdhezszx Historylt lfpe4886Bwhjnbui Historyright knee replacement- Dr. Easton-2009Surgical Historyleft total knee-Dr. Haque2-[address] Frias03/24/17Surgical HistoryColonoscopy, Dr. Betts, colon arwsde8-7-3528Qbsttvrqcnqzcgi Historysee aboveHospitalization Historyfx wrist and head laceration after a fall01/13/22 ModuleQ Other History general Narrative - Reported* Type Description Date Medical History pelvic exam done Medical Dyazuep3357 mammogram-normalMedical Twzlskv9558 colonoscopyMedical Shfftbf9749 CT scan doneMedical Kpgwfdy1322 eye examMedical History Zostavax doneMedical Yamdqub89-7115 Flu/H1N1 vaccineMedical History-2010 mammogramMedical History-2010 DEXA scanMedical HistoryFollows with Dr. Betts yearlyMedical Pcctzdr0-2-5114 Left femur FRMCMedical Jpvmjeh0-3-1476 Chest x-ray FRMedical History stress test-normal ([facility])Medical History Mammogram 2015 - Dr. FritzMedical HistoryLeukemiaSurgical Historybilateral inguinal hernia ebqcxt3032Vodfqygq Historyleft wcav1849Mnzwvqiz History xagvcbmagvns0050Ukfobrpd Historyabdominal ieweiv7739Ycrtuqgu Historyhernia pqdtgo3714Nsgtnyqj Toyvnbtsfzhnbxmxkkv9239Xtsttjwd Historyright knee replacement (Dr Antonio)1-2009Surgical Historyleft total knee (Dr Haque)2-2011Surgical Historybil inguinal hernia gphpua1326Zgwbldfz Historylt rrbu7917Cepfmqql History right knee replacement- Dr. Noeld1-2009Surgical Historyleft total knee-Dr. Haque 2-[address] Frias03/24/17Surgical HistoryColonoscopy, Dr. Betts, colon ggasky4-1-5830Dfwoqztwoycbbhx Historysee above Hospitalization Historyfx wrist and head laceration after a fall01/13/22 [facility] Adeze Other History general Narrative - Reported* Type Description Date Medical History pelvic exam done Medical Evkunrc2568 mammogram-normalMedical Xppnvve89[address]rnqu[address] CT scan doneMedical Myonvxr9125 eye examMedical History Zostavax doneMedical Hnasmzu53-4927 Flu/H1N1 vaccineMedical History-2010 mammogramMedical History-2010 DEXA scanMedical HistoryFollows with Dr. Betts yearlyMedical Vgskauc5-2-6476 Left femur FRMCMedical Acstkvu5-8-6078 Chest x-ray FRMedical History7-2003 stress test-normal ([facility])Medical History Mammogram 2016 - Dr. FritzMedical HistoryLeukemiaMedical HistoryArthritis Medical Historydiabetes mallitusMedical Historyhigh cholesterolMedical History chronic depressionMedical Historythyroid diseaseSurgical Historybilateral inguinal hernia cepkbr2872Hwycvmzb Historyleft xvdc5131Ecxynxrr History jasjjdipxxjp7327Tionmbpj Historyabdominal blvrqn3361Rphshwev Historyhernia nywgqu6611Ibejjflj Aiwbnupytsytgmdkliz7729Njivrjhz Historyright knee replacement (Dr Antonio)1-2009Surgical Historyleft total knee (Dr Haque)2-2011Surgical Historybil inguinal hernia blvaye2976Adweficl Historylt vaeu6062Tbtpiefp History right knee replacement- Dr. Noeld1-2009Surgical Historyleft total knee-Dr. Haque 2-[address] Frias03/24/17Surgical HistoryColonoscopy, Dr. Betts, colon -1-7385Mpadjafcaasbmjv Historysee above Hospitalization Historyfx wrist and head laceration after a fall01/13/22 ModuleQ Other Hospital course Narrative No data available for this section [facility] Work Phone: Hospital Discharge instructionsAmbulatory Orders* Referral to Sleep Medicine Time Frame: 02/05/24, Location: None [facility] Work Phone: Hospital Discharge instructionsAmbulatory Orders* Referral to General Surgery Time Frame: 04/05/24, Location: None [facility] Work Phone: Progress note No data available for this section [facility] reason for referral (narrative)* Diagnostic Procedure Only (Routine)StatusReasonSpecialtyDiagnoses / ProceduresReferred By Contact Referred To ContactPending Review Auto-Generated Referral XR IMAGING Diagnoses Pain in both knees, unspecified chronicity Procedures XR PELVIS 1V AP X-RAY PELVIS AP ONLY Dale Espinoza PA-C [address] [place] [address] Xr Imaging * Diagnostic Procedure Only (Routine)StatusReasonSpecialtyDiagnoses / Procedures Referred By ContactReferred To ContactPending Review Auto-Generated Referral XR IMAGING Diagnoses Pain in both knees, unspecified chronicity Procedures XR KNEE GENERAL 4V AP BOTH/PA BOTH/LAT/MERC BILAT KNEE AP-WGT/LAT/MERCHANT Dale Espinoza PA-C [address] [place] [address] Xr Imaging [facility] for referral (narrative)* Diagnostic Procedure Only (Routine) - Pending ReviewSpecialtyDiagnoses / ProceduresReferred By Contact Referred To ContactBR IMAGING Diagnoses Encounter for screening mammogram for malignant neoplasm of breast Procedures SONYA SCREENING W NEYDA SCREENING DIGITAL BREAST TOMOSYNTHESIS BI SCREENING MAMMOGRAPHY BI 2-VIEW BREAST INC CAD Santos Lares MD [address] [place] [address] [facility] [address] [place] [address] Referral IDStatusReasonStart DateExpiration DateVisits RequestedVisits [id number] Review Auto-Generated Referral / * Diagnostic Procedure Only (Routine) - Pending ReviewSpecialtyDiagnoses / ProceduresReferred By ContactReferred To ContactBR IMAGING Diagnoses Axillary adenopathy Other signs and symptoms in breast Procedures US BREAST LTD LT US BREAST UNI REAL TIME WITH IMAGE LIMITED Santos Lares MD [address] [place] [address] [facility] [address] [place] [address] Referral IDStatusReasonStart DateExpiration DateVisits RequestedVisits [id number] Review Auto-Generated Referral / * Diagnostic Procedure Only (Routine) - Pending ReviewSpecialtyDiagnoses / ProceduresReferred By ContactReferred To ContactXR IMAGING Diagnoses Rib pain Procedures XR RIBS/CHEST 3V AP RIB/OBLS/CXR LEFT RADEX RIBS UNI W/POSTEROANT CH MINIMUM 3 VIEWS Santos Lares MD [address] [place] [address] Xr Imaging Referral IDStatusReasonStart DateExpiration DateVisits RequestedVisits [id number] Review Auto-Generated Referral / * Consult, Test, Treat (Routine) - AuthorizedSpecialtyDiagnoses / Procedures Referred By ContactReferred To ContactEnt - Otolaryngology Diagnoses Right ear pain Procedures CONSULT TO ENT OFFICE/OUTPATIENT [facility] 60-74 MINUTES Santos Lraes MD [address] [place] [address] Referral IDStatusReasonStart DateExpiration DateVisits RequestedVisits [id number] PCP [facility]ed [facility]erral [facility] (narrative)* Reason appt pt needs cons ult to see Homa Mckeon /Dr. Corea for evaluation of lumbar pain Diagnosis 1 Other spondylosis wi th radiculopathy, lumbar region (M47.26) Referral Organization [facility] Family Medicin e [place] Referring Provider First Name Ayanna Referring Provider Last Name Sakina Referring Provider Specialty Family Prac art Referred Organization [facility] urosurgery Referred Provider Homa Mckeon Referred Address [address] [facility],[address],[address] Referred Provider Specialty Nurse Uli cotto Referral Priority Routine General Notes Nereyda Sanchez 04/15/2023 03:33:35 PM > referral sent p2p. pt understands she will be contacted to schedule this appt [facility]ze Other Reawdo for referral (narrative)No reason for referral information availableLancaster [facility] Work Phone: Reason for visit Narrativereview labs, refill medication, discuss multiple issues, see treatment plan for further information [facility] Other reason for visit NarrativePT HERE AT REQUEST OF DR VICENTE FOR EVALUATION AND TREATMENT OF CHANGE IN STOOL HABITS AND HISTORY OF IRRITABLE BOWEL SYNDROME AND COLON POLYPS, REFERRAL NOTE [facility]EDNosaint [facility] Brille24 Other Replwq for visit Narrativereview labs/med refill, discuss multiple issues see treatment planNosaint joseph [facility] Brille24 Other Rebvst for visit NarrativeNeurosurgery Referral Update [facility] Adeze Other reason for visit Narrative* Consultation (Routine) - ClosedSpecialtyDiagnoses / ProceduresReferred By ContactReferred To Contact Neurology Diagnoses Other amnesia Procedures OK OFFICE/OUTPATIENT NEW LOW MDM 30 MINUTES Ayanna Vicente MD [address] [place] [address] Phone: tel: fax: Babita Guillaume DO [address] [place] [address] Phone: tel: fax: Referral IDStatusReasonStart DateExpiration DateVisits RequestedVisits [id number] Consult and Treat [facility] HealthcareReason for visit Narrative* Consultation (Routine) - Closed SpecialtyDiagnoses / ProceduresReferred By ContactReferred To Contact Psychology Diagnoses Cognitive impairment Procedures OK OFFICE/OUTPATIENT NEW HIGH MDM Babita Guillaume DO [address] [place] [address] Phone: tel: fax: Enrique Hammonds, PhD [address] [address] Phone: tel: fax: Referral IDStatusReasonStart DateExpiration DateVisits RequestedVisits [id number] Specialty Services Required / [facility] Healthcare Summary Purpose Family History No [...] (M 25.551) Referral Organization [facility] Ne urosurgery Referring Provider First Name Homa Referring Provider Last Name Mike Referring Provider Specialty Nurse Pract joseluisr Referred Organization [facility] Referred Provider Bonnie Slade Referred Address [address], [place],[address] Referred Provider Specialty Pain Medicin e Referral Priority Routine General Notes Susan Ugarte 04:33:20 PM >received today, holding referral for todays visit note to be locked Reason evaluate and t reat for hip pain Diagnosis 1 Pain in right hip (M 25.551) Referral Organization [facility] urosurgery Referring Provider First Name Homa Referring Provider Last Name Mike Referring Provider Specialty Nurse Pracchristina herman Referred Organization [facility] Referred Provider Gume Macedo Referred Address [address] [facility] [facility],[address] Referred Provider Specialty Orthopedic S urgery Referral Priority Routine General Notes Susan Ugarte 04:34:14 PM >received today, sending p2p at this time for scheduling Reason Aqua therapy - evalu ate and treat Diagnosis 1 Pain in right hip (M 25.551) Diagnosis 2 Lumbar pain (M54.50) Referral Organization [facility] urosurger Referring Provider First Name Homa Referring Provider Last Name Mike Referring Provider Specialty Nurse Danielito herman Referred Organization [facility] Scheduling Referred Address [address], [place],[address] Referred Provider Specialty Physical The rapist Referral Priority Routine Reason appt pt would like to discuss hip, back, knee and sciatic pain Diagnosis 1 Other spondylosis wi th radiculopathy, lumbar region (M47.26) Referral Organization [facility] [place] Referring Provider First Name Ayanna Referring Provider Last Name Sakina Referring Provider Specialty Family Prac art Referred Organization [facility] urosurgery Referred Provider Homa Mckeon Referred Address [address] [facility] [address] ,[place], [place],[address] Referred Provider Specialty Nurse Uli cotto Referral Priority Routine General Notes Nereyda Sanchez 07/16/2023 03:06:01 PM > referral sent p2p. pt understands she will be contacted to schedule this appt Reason appt pt is lu gilliam to see any of the providers consult for eval and treatment of rheumatism/prescribing of Plaquenil Diagnosis 1 Rheumatism, unspecif ied (M79.0) Referral Organization [facility] [place] Referring Provider First Name Ayanna Referring Provider Last Name Sakina Referring Provider Specialty Family Prac art Referred Organization [facility] Referred Provider Esteban Saravia Referred Address [address] [place],[address] Referred Provider Specialty Rheumatology Referral Priority Routine [...] Wrist fracture, righ t (S62.101A) Referral Organization [facility] Gabrielaramila e [place] Referring Provider First Name Ayanna Referring Provider Last Name Sakina Referring Provider Specialty [facility] Prac art Referred Organization [facility] Referred Provider Penny Mike Referred Address [address] [place],[address] Referred Provider Specialty Hand Surgery Referral Priority [...] th radiculopathy, lumbar region (M47.26) Referral Organization [facility] [place] Referring Provider First Name Ayanna Referring Provider Last Name Sakina Referring Provider Specialty Family Prac art Referred Organization [facility] Referred Provider Anthony Morales Referred Address [address] [place],[address] Referred Provider Specialty Psychiatry, Neurology (Osteopaths only) [...] 1 Leukocytosis (D72.82 9) Referral Organization [facility] Family [facility] [place] Referring Provider First Name Ayanna Referring Provider Last Name Sakina Referring Provider Specialty Family Prac art Ref[facility] Referred Provider Saqib Coleman Referred Address [address] [place] [place],[address] Referred Provider Specialty Hematology/O ncology Referral Priority [...] pain, right (M2 5.561) Referral Organization [facility] [place] Referring Provider First Name Ayanna Referring Provider Last Name Sakina Referring Provider Specialty Family Prac art Referred Organization [facility] [place] [facility] Referred Provider Zohaib Akins II Referred Address [address] [place],[address] Referred Provider Specialty Orthopedic S urgery Referral Priority Routine General Notes Nereyda Sanchez 02/06/2022 02:16:49 PM > referral sent p2p. pt understands she will be contacted to schedule this appt. Reason appt pt needs cons ult to discuss change in stool habits, history of colon polyps, hx of IBS Diagnosis 1 Change in stool jacquie yesi (R19.4) Referral Organization [facility] [place] Referring Provider First Name Ayanna Referring Provider Last Name Sakina Referring Provider Specialty Family Prac art Referred Organization [facility] Gastroenterolo gy Referred Provider Ayanna Milner Referred Address [address] [facility] ,[place],[address] Referred Provider Specialty Gastroentero logy Referral Priority [...] radiculopathy Neuropathy Other abnormal blood chemistry 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 Peripheral edema HLD (hyperlipidemia) Hypertension Hypothyroidism Insomnia Chief Complaint Amb Documentation E11.65 E78.5 E03.9 R79.89 N30.90 Amb Documentation review labs/med refill sore throat, congestion, coughReason for VisitChronic lymphocytic leukemia Cystitis Diabetes type 2, uncontrolled Lumbar disc disease with radiculopathy Neuropathy Other abnormal blood chemistry 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 May 11, 2024 2:37pm HLD (hyperlipidemia) [...] anuary 2024 1:16pm Other spondylosis with radiculopathy, [facility] August 11, 2024 1:16pm Chief [...] 1pm Other spondylosis with radiculopathy, [facility] November 10, 2024 3:41pm Peripheral edema [...] 2024 3:4 1pm Other spondylosis with radiculopathy, [facility] November 10, 2024 3:41pm Peripheral [...] 2024 3:4 1pm Other spondylosis with radiculopathy, [facility] November 10, 2024 3:41pm Peripheral [...] section and content) DATE CREATED AUTHOR 01/06/2021 [facility] DATE CREATED AUTHOR AUTHOR'S ORGANIZ ATION 08/16/2022 [facility] DATE CREATED AUTHOR AUTHOR'S ORGANIZ ATION 11/13/2022 [facility] DATE CREATED AUTHOR AUTHOR'S ORGANIZ ATION 12/18/2024 [facility] DATE CREATED AUTHOR AUTHOR'S ORGANIZ ATION 02/10/2025 [facility] DATE CREATED AUTHOR AUTHOR'S ORGANIZ ATION 03/27/2025 [facility] DATE CREATED AUTHOR AUTHOR'S ORGANIZ ATION 04/21/2025 [facility] EPIC DATE CREATED AUTHOR AUTHOR'S MOMO TAY 05/21/2025 [facility] Source Comments (unrecognize d section and content) In the event this informatio n is protected by the Federal Confidentiality of Alcohol and Drug Abuse Patient Records regulations: The Federal rules restrict any use of the information to criminally investigate or prosecute any alcohol or drug abuse patient.[facility] HealthIn the event this information is protected by the Federal Confidentiality of Alcohol and Drug Abuse Patient Records regulations: The Federal rules restrict any use of the information to criminally investigate or prosecute any alcohol or drug abuse patient.[facility] HealthIn the event this information is protected by the Federal Confidentiality of Alcohol and Drug Abuse Patient Records regulations: The Federal rules restrict any use of the information to criminally investigate or prosecute any alcohol or drug abuse patient.[facility] HealthIn the event this information is protected by the Federal Confidentiality of Alcohol and Drug Abuse Patient Records regulations: The Federal rules restrict any use of the information to criminally investigate or prosecute any alcohol or drug abuse patient.[facility] HealthIn the event this information is protected by the Federal Confidentiality of Alcohol and Drug Abuse Patient Records regulations: The Federal rules restrict any use of the information to criminally investigate or prosecute any alcohol or drug abuse patient.[facility] HealthIn the event this information is protected by the Federal Confidentiality of Alcohol and Drug Abuse Patient Records regulations: The Federal rules restrict any use of the information to criminally investigate or prosecute any alcohol or drug abuse patient.[facility] HealthIn the event this information is protected by the Federal Confidentiality of Alcohol and Drug Abuse Patient Records regulations: The Federal rules restrict any use of the information to criminally investigate or prosecute any alcohol or drug abuse patient.[facility] HealthIn the event this information is protected by the Federal Confidentiality of Alcohol and Drug Abuse Patient Records regulations: The Federal rules restrict any use of the information to criminally investigate or prosecute any alcohol or drug abuse patient.[facility] HealthIn the event this information is protected by the Federal Confidentiality of Alcohol and Drug Abuse Patient Records regulations: The Federal rules restrict any use of the information to criminally investigate or prosecute any alcohol or drug abuse patient.[facility] HealthIn the event this information is protected by the Federal Confidentiality of Alcohol and Drug Abuse Patient Records regulations: The Federal rules restrict any use of the information to criminally investigate or prosecute any alcohol or drug abuse patient.[facility] HealthIn the event this information is protected by the Federal Confidentiality of Alcohol and Drug Abuse Patient Records regulations: The Federal rules restrict any use of the information to criminally investigate or prosecute any alcohol or drug abuse patient.[facility] HealthIn the event this information is protected by the Federal Confidentiality of Alcohol and Drug Abuse Patient Records regulations: The Federal rules restrict any use of the information to criminally investigate or prosecute any alcohol or drug abuse patient.[facility] REASON FOR VISIT (unrecogniz ed section and [...] April 28, 2025 End: April 28, 2025Daperi Vicenet , DOAttending ProviderActiveStart: April 28, 2025 End: [...] ProviderActiveAnataqueria Kevin MDOther ProviderActiveLisa M Dials , DERRICK WORKER Other ProviderActiveRonobiveans Juarez , DOOther ProviderActiveMusneris Hernandez MD Other ProviderActiveLoco Velasquez , DOOther ProviderActiveElgin Irby MDOther ProviderActiveRudyana Salamanca MDOther ProviderActiveLybrandon Riojas , ANP-BCOther ProviderActiveMax aPulino MDOther ProviderActiveFaisal Abel MDOther ProviderActiveBertram Garrison MDOther ProviderActiveBobby Guevara MD Other ProviderActiveTheric Chaparro MDOther ProviderActiveFirmaria alejandra Rock MDOther ProviderActiveMichael Burnett MDOther ProviderActiveYanira Najera , JUDICIAL CLERK-COther ProviderActiveSalas Winslow MDOther ProviderActiveJoss Stoner MD Other ProviderActiveTerrie Hua MDOther ProviderActiveAnoMetzger MDOther ProviderActiveMeron Estrada , DOOther ProviderActiveHani Randell Palacios MD Other ProviderActiveNeal R Anita , DOOther ProviderActiveLinda Obika , DERRICK WORKER Other ProviderActiveShawn Alhaji Fontaine , DOOther ProviderActiveObakris De Los Santos MDOther ProviderActiveKathy Taylor , ALLYSSAOther ProviderActiveTheric Corral MD Other ProviderActiveCojoaquín Mike MDOther ProviderActiveJebrandonifer Chester Quarles , JUDICIAL CLERK-COther ProviderActiveJucassandra Macedo , DOOther ProviderActiveRobert Wilfredo Akins II, MDOther ProviderActive Team Status: Inactive Member Role Status Dates Ayanna Vicente DO Primary Care Provider, Family Provid er Active Butch Redding MDEmergency ProviderActiveMagilda Garrison , MDAdmit Provider, Attending ProviderActive Team Status: Active Member Role Status Dates Ayanna Vicente DO Family Provider Active CHARLIE [facility] [place] ProviderActiveTeam MemberRelationshipSpecialty Start DateEnd Date Ayanna Vicente, DO [address] [place] [address] PCP - [facility] Medicine08/01/11 Ayanna Vicente, DO [address] [place] [address] ReferringFami Medicine10/04/20 Ayanna Vicente, DO [address] [place] [address] ReferringFamily Medicine01/09/21Team MemberRelationshipSpecialtyStart DateEnd Date Ayanna Vicente, DO [address] [place] [address] PCP - [facility] Medicine08/01/11 Ayanna Vicente, DO [address] [place] [address] ReferringFamily Medicine10/04/20 Ayanna Vicente, DO [address] [place] [address] ReferringFamily Medicine01/09/21Team MemberRelationshipSpecialtyStart DateEnd Date Ayanna Vicente, DO [address] [place] [address] PCP - [facility]08/01/11 Ayanna Vicente, DO [address] [place] [address] [facility]/04/20 Ayanna Vicente, DO [address] [place] [address] [facility]01/09/21Team MemberRelationshipSpecialtyStart DateEnd Date Ayanna Vicente, DO [address] [place] [address] PCP - [facility]08/01/11 Ayanna Vicente, DO [address] [place] [address] [facility]erring[facility]10/04/20 Ayanna Vicente, DO [address] [place] [address] [facility]erring[facility]01/09/21 Team Status: Inactive Member Role Status Dates Ayanna Vicente DO Primary Care Provider, Family Provid er Active Laureen Wang ProviderActive Team Status: Inactive Member Role Status Dates Ayanna Vicente DO Primary Care Provider, Family Provid er Active Esvin Dubon JUDICIAL CLERK-CAttending ProviderActiveTeam MemberRelationshipSpecialty Start DateEnd Date Ayanna Vicente, [address] [place] [address] PCP - [facility] Medicine08/01/11 Ayanna Vicente, [address] [place] [address] ReferringFamily Medicine10/04/20 Ayanna Vicente DO [address] [place] [address] ReferringFamily Medicine01/09/21Team MemberRelationshipSpecialtyStart DateEnd Date Ayanna Vicente MD [address] [place] [address] PCP - GeneralFamily Medicine12/10/22Team MemberRelationshipSpecialtyStart DateEnd Date Ayanna Vicente MD [address] [place] [address] [facility]12/10/22 Team Status: Inactive Member Role [...] Ayanna Vicente DO [address] [place] [address] PCP - [facility] Medicine08/01/11 Ayanna Vicente DO [address] [place] [address] [facility]10/04/20 Ayanna Vicente DO [address] [place] [address] [facility]01/09/21Team MemberRelationshipSpecialtyStart DateEnd Date Ayanna Vicente, DO [address] [place] [address] PCP - [facility]08/01/11 Ayanna Vicente, DO [address] [place] [address] Referring[facility]10/04/20 Ayanna Vicente, DO [address] [place] [address] Referring[facility]01/09/21Team MemberRelationshipSpecialtyStart DateEnd Date Ayanna Vicente, [address] [place] [address] PCP - [facility]08/01/11 Ayanna Vicente, [address] [place] [address] Referring[facility]10/04/20 Ayanna Vicente, [address] [place] [address] Referring[facility]01/09/21Team MemberRelationshipSpecialtyStart DateEnd Date Ayanna Vicente MD [address] [place], [place] [address] PCP - [facility]12/10/22Team MemberRelationshipSpecialtyStart DateEnd Date Ayanna Vicente MD [address] [place], [place] [address] PCP - GeneralFamily Medicine12/10/22Team MemberRelationshipSpecialtyStart DateEnd Date Ayanna Vicente MD [address] [place] [address] PCP - GeneralFamily Medicine12/10/22Team MemberRelationshipSpecialtyStart DateEnd Date Ayanna Vicente MD [address] [place] [address] PCP - GeneralFamily Medicine12/10/22Team MemberRelationshipSpecialtyStart DateEnd Date Ayanna Vicente MD [address] [place] [address] PCP - GeneralFamily Medicine12/10/22Team MemberRelationshipSpecialtyStart DateEnd Date Ayanna Vicente MD [address] [place] [address] PCP - GeneralFamily Medicine12/10/22Team MemberRelationshipSpecialtyStart DateEnd Date Ayanna Vicente MD [address] [place] [address] PCP - GeneralFamily Medicine12/10/22 Babita Guillaume DO [address] [place] [address] Referring PhysicianNeurology1/Team MemberRelationshipSpecialtyStart DateEnd Date Ayanna Vicente MD [address] [place] [address] PCP - GeneralFamily Medicine12/10/22 Babita Guillaume, [address] [facility] [place] [address] Referring PhysicianNeurology1 Team Status: Active Member [...] Date Ayanna Vicente, [address] [place] [address] PCP - [facility]08/01/11 Ayanna Vicente, [address] [place] [address] [facility]erring[facility] Medicine10/04/20 Ayanna Vicente DO [address] [place] [address] [facility]erring[facility] Medicine01/09/21Team MemberRelationshipSpecialtyStart DateEnd Date Ayanna Vicente, [address] [place] [address] [facility] - [facility]08/01/11 Ayanna Vicente DO [address] [place] [address] ReferringFamily Medicine10/04/20 Ayanna Vicente DO [address] [place] [address] ReferringFamily Medicine01/09/21Team MemberRelationshipSpecialtyStart DateEnd Date Ayanna Vicente MD [address] [place], [place] [id number] PCP - GeneralFamily Medicine12/10/22 Babita Guillaume DO [address] [facility] [place], [place] [address] Referring PhysicianNeurology1Team MemberRelationshipSpecialtyStart DateEnd Date Ayanna Vicente MD [address] [place], [place] [address] PCP - Generalmily Medicine12/10/22 Babita Guillaume DO [address] [facility] [place] [address] Referring PhysicianNeurolog08/09/24Team MemberRelationshipSpecialtyStart DateEnd Date Ayanna Vicente MD [address] [place], [place] [address] PCP - GeneralFamily Medicine12/10/22 Babita Guillaume DO [address] [place] [address] Referring PhysicianNeurology1Team MemberRelationshipSpecialtyStart DateEnd Date Ayanna Vicente MD [address] [place], [place] [id number] PCP - GeneralFamily Medicine12/10/22 Babita Guillaume DO [address] [place] [address] Referring PhysicianNeurolog08/09/24 Team Status: Active Member Role [...] BE BASED ON THE PRIMARY CLINICAL RECORDS. [facility] [employer] provides no warranty or guarantee of the accuracy or completeness of information in this document.
[2025-07-12 00:38] LABS: Hematocrit 37.9 % (36.0-48.0); Hemoglobin 12.4 g/dL (12.0-16.0); Mean Corpuscular HGB Conc 32.7 g/dL (29.9-35.2); Mean Corpuscular Hemoglobin 29.7 pg (26.7-34.0); Mean Corpuscular Volume 90.9 fL (81.0-99.0); Platelet Count 221 10^3/uL (150-450); Red Blood Count 4.17 10^6/uL (4.20-5.40); White Blood Count 17.9 10^3/uL (4.0-11.0)
[2025-07-12 00:39] LABS: Glucose Urine UA NEGATIVE (NEGATIVE)
[2025-07-12] MEDS: KETOROLAC TROMETHAMINE 30 MG/ML VIAL IVP (00:44)
[2025-07-12] MEDS: 0.9 % SODIUM CHLORIDE 500 ML IV (00:44)
[2025-07-12 00:45] LABS: Cast Seen? NONE SEEN #/LPF (NONE SEEN); Crystals Seen? None Seen #/HPF (None Seen); Urine Culture Indicated YES-FRMC
[2025-07-12 00:57] LABS: Lactate/Lactic Acid 1.4 mmol/L (0.4-2.0)
[2025-07-12 00:58] LABS: Atypical Lymphocytes % Manual 41.0 %; Atypical Lymphocytes Abs Man 7.33; Basophils Abs Manual 0.00 10^3/uL (0.00-0.10); Basophils Percent Manual 0.0 % (0.2-2.0); Eosinophils Absolute Manual 0.89 10^3/uL (0.00-0.70); Eosinophils Percent Manual 5.0 % (0.9-7.0); Lymphocytes Absolute Manual 4.83 10^3/uL (1.20-3.80); Lymphocytes Percent Manual 27.0 % (20.5-60.0); Monocytes Absolute Manual 0.71 10^3/uL (0.30-0.80); Monocytes Percent Manual 4.0 % (1.7-12.0); Schistocytes 2+; Segmented Neut Absolute Manual 4.11 10^3/uL (1.4-6.5); Segmented Neutrophils % Manual 23.0 (43.0-75.0); Smudge Cells SEEN
[2025-07-12 01:06] LABS: Alanine Aminotransferase 32 U/L (14-59); Albumin Globulin Ratio 1.1; Albumin Level 3.6 g/dL (3.4-5.0); Alkaline Phosphatase 115 U/L (46-116); Anion Gap 9.8; Aspartate Amino Transferase 24 U/L (15-37); Blood Urea Nitrogen 36.0 mg/dL (7.0-18.0); Calcium 9.0 mg/dL (8.5-10.1); Carbon Dioxide 29.0 mmol/L (21.0-32.0); Chloride 107 mmol/L (98-107); Estimated GFR (African America 44 (>=60 mL/min/1.73m^2); Estimated GFR (Non-African Ame 36 (>=60 mL/min/1.73m^2); Globulin 3.2 g/dL; Glucose 91 mg/dL (74-106); NT Pro B Type Natriuretic Pept 58.0 pg/mL (<=1800.0); Potassium 4.8 mmol/L (3.5-5.1); Sodium 141 mmol/L (136-145); Total Protein 6.8 g/dL (6.4-8.2)
--- NOTE | 2025-07-12 01:06 | XR_ITS ---
The [address] [address] Patient Name: MIGUEL A APARICIO MRN: [id number] date: 1940 Sex: F Assigned Patient Location: ER Current Patient Location: Accession/Order Number: [id number] Exam Date: 07/12/2025 01:28 Report Date: 07/12/2025 07:43 At the request of: BRANDON FERNANDEZ MD Procedure: XR chest 2V PA AND LATERAL CHEST: CLINICAL HISTORY: chills, LE swelling COMPARISON: 03/15/2020 FINDINGS: Mildly enlarged cardiac mediastinal silhouette. No focal airspace opacity effusion or pneumothorax. Emphysema changes identified with flattening of hemidiaphragms and increased retrosternal clear space. Multilevel degenerative changes of thoracic spine. Spinal similar device identified XR/XR chest 2V IMPRESSION: NO ACUTE CARDIOPULMONARY ABNORMALITY. Impression dictated by: Serge Collins M.D. 07/12/2025 7:43 AM Dictation Location: [facility] Electronically authenticated by: [id number] Y Date: 07/12/2025 07:43
[2025-07-12 01:12] LABS: SARS-CoV-2 Ag NEGATIVE (NEGATIVE)
--- NOTE | 2025-07-12 01:37 | PC.NURSE ---
this patient vices she has some relief from the pain medication and this patient is able close her eye and rest
--- NOTE | 2025-07-12 01:51 | PC.NURSE ---
i gave this patient verbal and written discharge orders along with 1Rx and this patient voices yes to understanding these. at time of discharge this patient voices no concnerns needs and shows no signs of distress
== END 2025-07-12 01:51 | disposition home or self-care (01) ==
PROVIDERS: Emergency Provider Emergency Medicine; PCP Family Medicine
DX: M79.10 Myalgia, unspecified site (principal); M25.50 Pain in unspecified joint; C91.10 Chronic lymphocytic leukemia of B-cell type not having achieved remission; M96.1 Postlaminectomy syndrome, not elsewhere classified; Z87.440 Personal history of urinary (tract) infections
CPT/HCPCS: 36415; 71046; 80053; 81001; 83605; 83880; 84484; 85007; 85027; 86140; 87086; 87088; 87186; 87804; 87811; 96374; 96375; 99284; J1885; J2405